=== PATIENT | male | born 1965 | race Caucasian/White ===

== ENCOUNTER 2025-03-21 09:26 | Inpatient (IN) | payer MEDICARE, MEDICAID, SELFPAY ==
[2025-03-21 09:27] VITALS: BP 125/93; PULSE 78; RESP 18; TEMP 36.6; O2SAT 96
[2025-03-21 09:30] VITALS: BMI 40.3
--- NOTE | 2025-03-21 09:40 | EX.ED.SAOD ---
HPI History of Present Illness Chief Complaint: Substance Abuse Informant: patient Narrative Narrative: 59-year-old male presenting to the emergency room requesting detox from opiates. Patient states over the past year to year and a half he has had multiple surgeries and he states that each time he was prescribed oxycodone or tramadol. He states that he is developing a tolerance to them and find that he is having withdrawal symptoms if he tries to stop. Today he went to see his primary care doctor as it has been about 2 days since his last dose and was noted to have withdrawals and was referred to this hospital for evaluation. Patient denies any alcohol or tobacco use. He states he had COVID which caused some lung damage. The patient notes he is on multiple medications. His PCP is in [place]. Patient notes current nausea vomiting diarrhea goosebumps skin shaking anxiety sweats. [facility] Medical History (Updated 03/21/25 @ 10:[address] Abe Daly, DO) Anxiety Depression Substance abuse Hypothyroidism Kidney disease Non-smoker COPD (chronic obstructive pulmonary disease) Asthma Atrial fibrillation Parkinson's disease TIA (transient ischemic attack) Home Medications ?Medication ?Instructions ?Recorded ?Last Taken ?Type acetaminophen 500 mg tablet 500 mg PO Q6H PRN fever or pain 03/21/25 03/19/25 History (Tylenol Extra Strength) albuterol sulfate 90 mcg/actuation 2 puff inhalation Q6H PRN PRN 03/21/25 03/18/25 History aerosol inhaler shortness of breath or wheezing alprazolam 1 mg tablet 1 mg PO QHS 03/21/25 03/20/25 History aspirin 81 mg tablet,delayed 81 mg PO BID 03/21/25 03/20/25 History release (Adult Aspirin Regimen) atorvastatin 80 mg tablet (Lipitor) 80 mg PO DAILY 03/21/25 03/20/25 History bacitracin 500 unit/gram topical 1 applic topical DAILY 03/21/25 03/20/25 History packet budesonide-formoterol HFA 160 1 inh inhalation DAILY 03/21/25 03/18/25 History mcg-4.5 mcg/actuation aerosol inhaler (Symbicort) bumetanide 1 mg tablet 1 mg PO BID 03/21/25 03/20/25 History buprenorphine 8 mg-naloxone 2 mg 1 film sublingual DAILY 03/21/25 Unknown History sublingual film (Suboxone) Held on 03/21/25. Instructions: pt just recieved bupropion HCl 150 mg 24 hr tablet, 150 mg PO DAILY 03/21/25 03/20/25 History extended release (Wellbutrin XL) buspirone 10 mg tablet 10 mg PO BID 03/21/25 03/20/25 History clotrimazole 1 % topical cream 1 applic topical BID PRN antifungal 03/21/25 03/20/25 History cyclobenzaprine 10 mg tablet 10 mg PO QHS PRN muscle spasm 03/21/25 03/20/25 History finasteride 5 mg tablet 5 mg PO DAILY 03/21/25 03/20/25 History fluticasone propionate 115 2 puff inhalation BID 03/21/25 03/20/25 History mcg-salmeterol 21 mcg/actuation HFA inhaler furosemide 40 mg tablet (Lasix) 40 mg PO TID 03/21/25 03/20/25 History gabapentin 300 mg capsule 300 mg PO TID 03/21/25 03/18/25 History hydroxyzine pamoate 50 mg capsule 50 mg PO Q6H PRN itching 03/21/25 03/20/25 History ipratropium 0.5 mg-albuterol 3 mg 3 ml inhalation Q6H PRN PRN 03/21/25 03/18/25 History (2.5 mg base)/3 mL nebulization shortness of breath or wheezing soln levothyroxine 75 mcg tablet 75 mcg PO DAILY 03/21/25 03/20/25 History (Euthyrox) lidocaine 4 % topical cream 1 applic topical Q8H PRN pain 03/21/25 03/18/25 History lidocaine 5 % topical patch 1 patch topical Q24H PRN pain 03/21/25 03/20/25 History multivit,calcium,min-folic acid 1 tab PO DAILY 03/21/25 03/20/25 History 240 mcg-D3 25 mcg-lycop 300 mcg tablet (One A Day Men Complete) naloxone 4 mg/actuation nasal spray 1 spray intranasal Q3M PRN opioid 03/21/25 Unknown History overdose nystatin 100,000 unit/gram topical 1 applic topical BID 03/21/25 03/20/25 History powder ondansetron HCl 4 mg tablet 4 mg PO Q8H PRN nausea and vomiting 03/21/25 03/20/25 History oxycodone 5 mg tablet 5 mg PO TID PRN PRN severe pain 03/21/25 03/20/25 History pantoprazole 40 mg tablet,delayed 40 mg PO DAILY 03/21/25 Unknown History release (Protonix) paroxetine HCl 20 mg tablet (Paxil) 20 mg PO DAILY 03/21/25 03/20/25 History sennosides 8.6 mg-docusate sodium 1 - 2 tab PO QHS PRN constipation 03/21/25 03/20/25 History 50 mg tablet (Senna with Docusate Sodium) sertraline 100 mg tablet (Zoloft) 100 mg PO DAILY 03/21/25 03/20/25 History sildenafil 100 mg tablet 100 mg PO DAILY PRN sexual activity 03/21/25 03/14/25 History tamsulosin 0.4 mg capsule 0.4 mg PO DAILY 03/21/25 03/20/25 History white petrolatum 41 % topical 1 applic topical Q6H PRN dry skin 03/21/25 03/18/25 History ointment (Aquaphor Baby Healing) Allergy/AdvReac Type Severity Reaction Status Date / Time Iodinated Contrast Media AdvReac Other Verified 03/21/25 09:30 Surgical History (Updated 03/21/25 @ 10:05 by France Mitchell) History of appendectomy Social History Smoking Status: Never smoker ROS ROS ED Constitutional Constitutional ED: Reports chills and sweats; Denies fever(s) or weight loss Eyes Eyes: Denies change in vision or diplopia ENT ENT ED: Denies ear pain, rhinorrhea or sore throat Cardiovascular Cardiovascular: Denies chest pain, orthopnea, palpitations or racing heartbeat Respiratory/Chest Respiratory/Chest: Denies cough, dyspnea or orthopnea Gastrointestinal Gastrointestinal: Reports diarrhea, nausea and vomiting; Denies abdominal pain Genitourinary Genitourinary ED: Denies dysuria, hematuria or urinary frequency Musculoskeletal Musculoskeletal: Denies arthralgias or myalgias Integumentary Reports other Details: Goosebumps skin ; Denies abscess or rash Neurologic Neurologic: Reports other Details: Shaking ; Denies headache(s) or weakness Psychiatric Psychiatric: Denies anxiety, depression, suicidal ideation or suicidal thoughts Endocrine Endocrinology: Denies polydipsia, polyphagia or polyuria Allergic/Immunologic Allergic/Immunologic ED: Denies mouth swelling, tongue swelling or urticaria EXAM Physical Exam Narrative Exam Narrative: 59-year-old male sitting in the bed. He has obvious tremor. Const Vital Signs: 03/21/25 09:27 Temperature 98 F Temperature Source Temporal Pulse Rate 78 Respiratory Rate 18 Blood Pressure 125/93 H Blood Pressure Mean 103 Pulse Ox 96 Oxygen Delivery Method Room Air Positive well nourished and well developed General Appearance ED: well developed HEENT Reports normocephalic, head/scalp atraumatic and moist mucous membranes Eyes PERRL and EOMs intact bilaterally Neck no lymphadenopathy, supple and no JVD Resp normal respiratory effort and clear to auscultation bilaterally Cardio regular rate, regular rhythm and no murmurs GI normal to inspection, nondistended, normoactive bowel sounds and non-tender Palpation: soft Back/Spine no CVA tenderness and normal ROM Extremity Extremity Narrative: Tremors noted particularly of the arms General Extremety ED: Negative for edema General Extremity: Negative for edema Neuro oriented x3 and CN's II-XII intact bilaterally Sensorium / Orientation: alert Motor Exam: strength 5/5 throughout Psych Mood & Affect: anxious; Negative for depressed or tearful Skin no rashes or lesions noted and no wounds Skin Narrative: Piloerection MDM MDM MDM Narrative Medical decision making narrative: Differential diagnosis includes but not limited to opiate withdrawal polysubstance use dehydration and electrolyte abnormalities liver dysfunction renal abnormalities bone marrow suppression/anemia Basic blood work was obtained and reviewed. Patient noted to have white count 3.7 hemoglobin 11.1 platelet count of 103. I do not have old labs to compare to to see if he has been pancytopenic in the past. He does not appear to be in need of a transfusion he has no active bleeding. Alcohol is negative. LFTs are normal. Normal creatinine. Patient has been unable to give us a urine specimen yet. I spoke with the hospitalist and the patient will be admitted. History & Record Review Discussion w/independent historian: Patient Lab Data Attestation: I reviewed the patient's lab results. Labs: Laboratory Results - last 24 hr 03/21/25 10:02 WBC 3.7 L RBC 4.19 L Hgb 11.1 L Hct 34.6 L MCV 82.6 MCH 26.5 L MCHC 32.1 RDW Std Deviation 43.2 RDW Coeff of Kaylee 14.6 Plt Count 103 L MPV 8.9 Immature Gran % (Auto) 0.300 Neut % (Auto) 63.9 Lymph % (Auto) 24.3 [place] % (Auto) 7.7 Eos % (Auto) 2.7 Baso % (Auto) 1.1 H Absolute Neuts (auto) 2.3 Absolute Lymphs (auto) 0.89 Sodium 141 Potassium 3.3 Chloride 103 Carbon Dioxide 28.0 Anion Gap 10 BUN 10 Creatinine 1.07 Estim Creat Clear Calc 106.05 Est GFR (MDRD) Non-Af 79 BUN/Creatinine Ratio 9.4 L Glucose 99 Calcium 8.6 Total Bilirubin 0.57 AST 27 ALT 20 Alkaline Phosphatase 68 Total Protein 6.7 Albumin 4.0 Globulin 2.7 Albumin/Globulin Ratio 1.5 Ethyl Alcohol < 10.1 Management Discussion w/another healthcare provider: Hospitalist Discharge Plan Dx/Rx/DC Orders Clinical Impression: Opiate withdrawal, Opiate dependence, Pancytopenia Disposition Disposition: Acute Care [facility]
[2025-03-21 10:08] LABS: Hematocrit 34.6 % (40-54); Hemoglobin 11.1 g/dL (13.0-16.5); Mean Corpuscular Volume 82.6 fL (80-94); Red Blood Count 4.19 M/mm3 (4.6-6.2); White Blood Count 3.7 K/mm3 (4.4-11.0)
[2025-03-21 10:09] LABS: Immature Granulocytes Count 0.010 X10^3/uL (0.0-0.0); Mean Corp Hgb Conc 32.1 g/dL (32-36); Mean Platelet Vol. 8.9 fl (6.2-12.0); Platelet Count 103 K/mm3 (150-450); RBC Distribution Width CV 14.6 % (11.6-14.6); RBC Distribution Width SD 43.2 fl (35.1-43.9)
[2025-03-21 10:44] LABS: AST(SGOT) 27 U/L (<=37); Alanine Aminotransfer ALT/SGPT 20 U/L (<=46); Albumin, Serum 4.0 g/dL (3.4-4.8); Alcohol, Blood (Medical)-Serum < 10.1 mg/dL (<=10.0); Alkaline Phosphatase 68 U/L (40-129); Anion Gap 10 (5-15); BUN 10 mg/dL (4-19); BUN/Creat Ratio 9.4 RATIO (10-20); Calcium,Total 8.6 mg/dL (7.6-11.0); Carbon Dioxide 28.0 mmol/L (21.0-32.0); Chloride 103 mmol/L (98-108); Estimated Creatinine Clearance 106.05 ml/min (50-250); Globulin 2.7 g/dL (2.2-4.2); Glucose 99 mg/dL (70-99); Potassium 3.3 mmol/L (3.3-5.1)
[2025-03-21 11:06] VITALS: BP 136/84; PULSE 64; RESP 18; TEMP 36.4; O2SAT 96
[2025-03-21 11:40] LABS: Barbiturate Urine NEGATIVE (< 200 ng/mL); Benzodiazepine Urine PRESUMPTIVE POSITIVE (< 200 ng/mL); PCP Urine NEGATIVE (< 25 ng/mL); THC Urine PRESUMPTIVE POSITIVE (< 50 ng/mL)
--- NOTE | 2025-03-21 11:40 | CM.ED ---
Social Work Patient requesting detox from opiates. Patient states he has had five surgeries over the last two years and now is not able to get off pain medications. Patient reports he is a little nervous about the process but is ready to be free of the medications. Emotional support provided. Rebecca Anderson, FOIL STAMP OPERATOR, LIQUEFIER
[2025-03-21 12:12] VITALS: BP 161/94; PULSE 71; RESP 18; TEMP 36.2; O2SAT 99
[2025-03-21 12:15] VITALS: BMI 34.5
[2025-03-21] MEDS: hydrOXYzine PAM 25 MG Capsule 50 MG PO (14:34)
--- NOTE | 2025-03-21 14:37 | WOUNDNOTE ---
wound photo: left lower leg
[2025-03-21 15:46] VITALS: BP 123/103; PULSE 76; RESP 16; TEMP 36.4; O2SAT 96
[2025-03-21] MEDS: Aspirin E.C. 81 MG Tablet PO (17:01)
[2025-03-21] MEDS: hydrOXYzine PAM 25 MG Capsule 75 MG PO (17:01)
--- NOTE | 2025-03-21 19:11 | PCM.HP.STD ---
HPI - General General Date of Admission: 03/21/25 Date of Service: 03/21/25 Chief Complaint: Opiate withdrawal HPI Narrative SOPHIE MUNROE, is a 59 M who presents to the emergency room at [facility] requesting services for opiate withdrawal. Patient had been taking prescription oxycodone for chronic pain and he felt he was using too many of them and wanted to come off the narcotics. Patient had gone to [place] and tried to enroll in an inpatient program but his insurance did not cover it. He contacted 180 and was advised to come to the ER for evaluation. Patient is having tremor, nausea and vomiting, diarrhea, and sweating. Workup in the emergency room included a CBC which was abnormal for white blood cell count of 3.7, hemoglobin was 11.1 and platelet count was 103,000. Patient's chemistry profile was unremarkable, and toxicology screen was positive for oxycodone cannabinoids and benzodiazepines. Patient will be admitted to [place] [address], orders were entered using the addiction order set and opiate detox order set. Patient will be seen by addiction social science research assistant [facility] Medical History (Updated 03/21/25 @ 12:23 by Stacy Dunn) GERD (gastroesophageal reflux disease) Dementia Anxiety Depression Substance abuse Hypothyroidism Kidney disease Non-smoker COPD (chronic obstructive pulmonary disease) Asthma Atrial fibrillation Parkinson's disease TIA (transient ischemic attack) Home Medications ?Medication ?Instructions ?Recorded ?Last Taken ?Type acetaminophen 500 mg tablet 500 mg PO Q6H PRN fever or pain 03/21/25 03/19/25 History (Tylenol Extra Strength) albuterol sulfate 90 mcg/actuation 2 puff inhalation Q6H PRN PRN 03/21/25 03/18/25 History aerosol inhaler shortness of breath or wheezing alprazolam 1 mg tablet 1 mg PO QHS 03/21/25 03/20/25 History aspirin 81 mg tablet,delayed 81 mg PO BID 03/21/25 03/20/25 History release (Adult Aspirin Regimen) atorvastatin 80 mg tablet (Lipitor) 80 mg PO DAILY 03/21/25 03/20/25 History bacitracin 500 unit/gram topical 1 applic topical DAILY 03/21/25 03/20/25 History packet budesonide-formoterol HFA 160 1 inh inhalation DAILY 03/21/25 03/18/25 History mcg-4.5 mcg/actuation aerosol inhaler (Symbicort) bumetanide 1 mg tablet 1 mg PO BID 03/21/25 03/20/25 History buprenorphine 8 mg-naloxone 2 mg 1 film sublingual DAILY 03/21/25 Unknown History sublingual film (Suboxone) Held on 03/21/25. Instructions: pt just recieved bupropion HCl 150 mg 24 hr tablet, 150 mg PO DAILY 03/21/25 03/20/25 History extended release (Wellbutrin XL) buspirone 10 mg tablet 10 mg PO BID 03/21/25 03/20/25 History clotrimazole 1 % topical cream 1 applic topical BID PRN antifungal 03/21/25 03/20/25 History cyclobenzaprine 10 mg tablet 10 mg PO QHS PRN muscle spasm 03/21/25 03/20/25 History finasteride 5 mg tablet 5 mg PO DAILY 03/21/25 03/20/25 History fluticasone propionate 115 2 puff inhalation BID 03/21/25 03/20/25 History mcg-salmeterol 21 mcg/actuation HFA inhaler furosemide 40 mg tablet (Lasix) 40 mg PO TID 03/21/25 03/20/25 History gabapentin 300 mg capsule 300 mg PO TID 03/21/25 03/18/25 History hydroxyzine pamoate 50 mg capsule 50 mg PO Q6H PRN itching 03/21/25 03/20/25 History ipratropium 0.5 mg-albuterol 3 mg 3 ml inhalation Q6H PRN PRN 03/21/25 03/18/25 History (2.5 mg base)/3 mL nebulization shortness of breath or wheezing soln levothyroxine 75 mcg tablet 75 mcg PO DAILY 03/21/25 03/20/25 History (Euthyrox) lidocaine 4 % topical cream 1 applic topical Q8H PRN pain 03/21/25 03/18/25 History lidocaine 5 % topical patch 1 patch topical Q24H PRN pain 03/21/25 03/20/25 History multivit,calcium,min-folic acid 1 tab PO DAILY 03/21/25 03/20/25 History 240 mcg-D3 25 mcg-lycop 300 mcg tablet (One A Day Men Complete) naloxone 4 mg/actuation nasal spray 1 spray intranasal Q3M PRN opioid 03/21/25 Unknown History overdose nystatin 100,000 unit/gram topical 1 applic topical BID 03/21/25 03/20/25 History powder ondansetron HCl 4 mg tablet 4 mg PO Q8H PRN nausea and vomiting 03/21/25 03/20/25 History oxycodone 5 mg tablet 5 mg PO TID PRN PRN severe pain 03/21/25 03/20/25 History pantoprazole 40 mg tablet,delayed 40 mg PO DAILY 03/21/25 Unknown History release (Protonix) paroxetine HCl 20 mg tablet (Paxil) 20 mg PO DAILY 03/21/25 03/20/25 History sennosides 8.6 mg-docusate sodium 1 - 2 tab PO QHS PRN constipation 03/21/25 03/20/25 History 50 mg tablet (Senna with Docusate Sodium) sertraline 100 mg tablet (Zoloft) 100 mg PO DAILY 03/21/25 03/20/25 History sildenafil 100 mg tablet 100 mg PO DAILY PRN sexual activity 03/21/25 03/14/25 History tamsulosin 0.4 mg capsule 0.4 mg PO DAILY 03/21/25 03/20/25 History white petrolatum 41 % topical 1 applic topical Q6H PRN dry skin 03/21/25 03/18/25 History ointment (Aquaphor Baby Healing) Allergy/AdvReac Type Severity Reaction Status Date / Time Iodinated Contrast Media AdvReac Other Verified 03/21/25 09:30 Surgical History (Updated 03/21/25 @ 10:05 by France Mitchell) History of appendectomy Social History Smoking Status: Never smoker ROS Constitutional Constitutional: Denies anorexia, change in weight, fever(s), night sweats or weakness Eyes Eyes: Denies blurry vision, change in vision, discharge from eye(s) or eye pain Cardiovascular Cardiovascular: Denies chest pain, claudication, edema or palpitations Respiratory/Chest Respiratory/Chest: Denies cough, hemoptysis, shortness of breath at rest or shortness of breath with exertion Gastrointestinal Gastrointestinal: Reports diarrhea, nausea and vomiting; Denies abdominal pain, constipation, hematemesis, hematochezia or melena Genitourinary Genitourinary: Denies dysuria, hematuria, urinary frequency, urinary hesitancy, urinary incontinence or urinary urgency Musculoskeletal Musculoskeletal: Denies back pain, joint pain, joint stiffness, joint swelling, myalgias or neck pain Neurologic Neurologic: Denies abnormal gait, abnormal speech, dizziness, focal weakness, headache(s), loss of vision, numbness, other visual disturbances, paresthesias, syncope or tingling Psychiatric Psychiatric: Reports anxiety; Denies cognitive impairment, depression, irritability, mood swings or suicidal ideation Endocrine Endocrinology: Denies change in body appearance, cold intolerance, excessive sweating, heat intolerance, polydipsia or polyuria Hematologic/Lymphatic Hematologic/Lymphatic: Denies none, anemia, easy bleeding, easy bruising or lymphadenopathy Allergic/Immunologic Allergic/Immunologic: Denies rhinitis, urticaria, eczemia or asthma Vital Signs Vital Signs Vital Signs: 03/21/25 09:27 03/21/25 11:06 03/21/25 12:12 Temperature 98 F 97.6 F L 97.2 F L Temperature Source Temporal Temporal Pulse Rate 78 64 71 Respiratory Rate 18 18 18 Respiratory Effort Respiratory Depth Respiratory Pattern Blood Pressure 125/93 H 136/84 H 161/94 H Blood Pressure Mean 103 101 116 Blood Pressure Source Monitor Blood Pressure Position Semi-Fowlers Blood Pressure Location Left Forearm Pulse Ox 96 96 99 Oxygen Delivery Method Room Air Room Air 03/21/25 12:42 03/21/25 15:46 Temperature 97.5 F L Temperature Source Oral Pulse Rate 76 Respiratory Rate 16 Respiratory Effort Normal Respiratory Depth Normal Respiratory Pattern Normal Blood Pressure 123/103 H Blood Pressure Mean 109 Blood Pressure Source Monitor Blood Pressure Position Semi-Fowlers Blood Pressure Location Left Arm Pulse Ox 96 Oxygen Delivery Method Room Air Room Air Weight Weight: 118.8 kg Body Mass Index (BMI) 34.5 Physical Exam Const alert, oriented x3 and no apparent distress Constitutional Narrative: Patient appears mildly anxious at the time my examination General Appearance: cooperative, well kempt and well developed Orientation / Consciousness: awake, oriented to person, oriented to place and oriented to time HEENT normocephalic, head/scalp atraumatic, hearing grossly normal bilaterally and moist oral mucous membranes Eyes PERRL, EOMs intact bilaterally and conjunctivae normal Neck supple, no JVD, thyroid normal and no carotid bruits General: trachea midline Resp normal respiratory effort, no retractions, no use of accessory muscles and clear to auscultation bilaterally Auscultation: Negative for rales, rhonchi or wheezes Cardio regular rate, regular rhythm, S1 normal heart sound, S2 normal heart sound, no murmurs, no rub and no gallops GI normal to inspection, nondistended, normoactive bowel sounds, soft to palpation, non-tender and non-distended Skin Skin Narrative: Patient has excoriated /abraded areas over his left lower leg, there is no drainage Neuro oriented x3, CN's II-XII intact bilaterally, moves all extremities, no focal motor deficits and no sensory deficits noted Sensorium / Orientation: awake and alert Speech: speech normal Psych Psych Narrative: Patient appeared mildly anxious and nervous Results Lab / Micro Data 03/21/25 10:02 03/21/25 10:02 Labs: Laboratory Results - last 24 hr 03/21/25 10:02: WBC 3.7 L, RBC 4.19 L, Hgb 11.1 L, Hct 34.6 L, MCV 82.6, MCH 26.5 L, MCHC 32.1, RDW Std Deviation 43.2, RDW Coeff of Kaylee 14.6, Plt Count 103 L, MPV 8.9, Immature Gran % (Auto) 0.300, Neut % (Auto) 63.9, Lymph % (Auto) 24.3, [place] % (Auto) 7.7, Eos % (Auto) 2.7, Baso % (Auto) 1.1 H, Absolute Neuts (auto) 2.3, Absolute Lymphs (auto) 0.89, Sodium 141, Potassium 3.3, Chloride 103, Carbon Dioxide 28.0, Anion Gap 10, BUN 10, Creatinine 1.07, Estim Creat Clear Calc 106.05, Est GFR (MDRD) Non-Af 79, BUN/Creatinine Ratio 9.4 L, Glucose 99, Calcium 8.6, Total Bilirubin 0.57, AST 27, ALT 20, Alkaline Phosphatase 68, Total Protein 6.7, Albumin 4.0, Globulin 2.7, Albumin/Globulin Ratio 1.5, Ethyl Alcohol < 10.1 03/21/25 11:05: Urine Opiates Screen NEGATIVE, U Buprenorphine Qual NEGATIVE, Ur Oxycodone Screen PRESUMPTIVE POSITIVE, Urine Methadone Screen NEGATIVE, Urine Fentanyl Screen NEGATIVE, Ur Barbiturates Screen NEGATIVE, Ur Phencyclidine Scrn NEGATIVE, Ur Amphetamines Screen NEGATIVE, U Benzodiazepines Scrn PRESUMPTIVE POSITIVE, Urine Cocaine Screen NEGATIVE, U Cannabinoids Screen PRESUMPTIVE POSITIVE Assessment & Plan Assessment/Plan (1) Opiate withdrawal: PLAN: Plan 1. Acute opiate withdrawal-patient stopped his oxycodone approximately 2 days ago, again patient was admitted to [place] [address] and will be seen by addiction social science research assistant, his Xanax will be discontinued. Patient's gabapentin will be discontinued. #2 chronic depression-patient will remain on his outpatient medications #3 GERD-patient is on a PPI #4 hypothyroidism-patient is on Synthroid #5 chronic obstructive pulmonary disease-patient will be placed on aerosol treatments Total clinical time spent by myself addressing the patient's medical issues, reviewing all of his data, and collaborating with the patient's care team: 55 minutes Charges/Coding Visit Charges Inpatient E&M: 42022 Init Hosp L2
[2025-03-21 19:34] VITALS: PULSE 65; RESP 14; O2SAT 97
[2025-03-21 21:45] VITALS: BP 105/55; PULSE 70; RESP 16; TEMP 36.4; O2SAT 96
[2025-03-21] MEDS: Lidocaine 5% Patch 1 PATCH TOPICAL (21:50)
[2025-03-22 02:37] VITALS: BP 120/55; PULSE 70; RESP 16; TEMP 36.6; O2SAT 95
[2025-03-22] MEDS: hydrOXYzine PAM 25 MG Capsule 50 MG PO ×2 (02:38→13:25)
[2025-03-22] MEDS: buPROPion (XL) 150 MG TABLET.XL PO (08:17)
[2025-03-22] MEDS: Aspirin E.C. 81 MG Tablet PO ×2 (08:17→16:59)
[2025-03-22 08:27] VITALS: BP 131/90; PULSE 75; RESP 18; TEMP 37.2; O2SAT 95
--- NOTE | 2025-03-22 11:55 | ADDICTION ---
Met with patient to complete RAMP assessments. The patient reported being prescribed opiates for over two years. He stated that the medication had become ineffective, leading him to increase his dosage. He disclosed that his use had escalated to as many as twelve pills per day and expressed a strong desire to discontinue opiate use completely. The patient acknowledged physical dependence but did not exhibit addictive behaviors beyond taking more than prescribed. Treatment options were discussed during the session. The clinician recommended outpatient counseling to support the patient?s goal of discontinuing opiate use. Inpatient treatment was not recommended at this time. The plan is for the patient to follow up with a counselor and continue monitoring progress. Resources were given.
[2025-03-22 14:31] VITALS: BP 113/53; PULSE 72; RESP 16; TEMP 36.8; O2SAT 98
--- NOTE | 2025-03-22 14:34 | CHAPLAIN ---
Type of Pastoral Visit _x__ Initial Visit ___ Follow-up Visit ___ On-call Visit ___ General Patient Visit ___ Spiritual Assessment ___ Family Conference ___ Bereavement ___ Rapid Response ___ Code Blue ___ Other (describe below) Pastoral Care Referral From _x__ Patient ___ Family ___ Nurse ___ Physician ___ Phlebotomy Instructor ___ [employer] Delivery Driver ___ Other (describe below) Sacrament/Intervention _x__ Active listening ___ Anointing ___ Episcopal ___ Bereavement ___ Communion _x__ Jodi exploration ___ _x__ Life review _x__ Prayer ___ Reconciliation ___ Sacrament of Sick _x__ Supportive presence ___ Wedding ___ Other (describe below) Pastoral Comments patient is open for conversation and is honest about his struggles with pain killers; pt has had many surgeries in a short amount of time; pt has goal to be medication free as much as possible but admits that he has new diagnosis that may require more pills; pt has family and they are supportive; pt states that he has a goal to start attending gnosticist with his daughter and that he is open to spiritual care and support for personal growth; pt talks about his life, his needs, and his interest in jodi; pt welcomes prayer
[2025-03-22 15:42] VITALS: PULSE 72; RESP 19
--- NOTE | 2025-03-22 18:31 | PCM.PN.HOSP ---
Reason for Visit Chief Complaint: Opiate withdrawal Subjective Subjective Patient was seen and examined today, he states he is got less nervousness today, he does have a resting tremor that is evident particularly in the on the right upper extremity. Patient and I had a conversation concerning his Xanax usage, patient was able to sleep with tramadol while in the hospital here, for now we will continue to hold his Xanax and I told him that if he felt he needed it on discharge from the hospital I would give him a prescription for this or have him resume his medicine at home. It appears that the patient is not going to do an inpatient detox program. Objective Data Objective Data Vital Signs: Vital Signs Temp Pulse Resp BP Pulse Ox O2 Del Method 98.3 F 72 19 H 113/53 L 98 Room Air 03/22/25 14:31 03/22/25 15:42 03/22/25 15:42 03/22/25 14:31 03/22/25 14:31 03/22/25 14:31 Oxygen Delivery Method Room Air Weight: 118.8 kg Body Mass Index (BMI) 34.5 Intake & Output: Intake and Output for Last 24 Hours 03/20/25 03/21/25 03/22/25 23:59 23:59 23:59 Intake Total 700 / 700 1000 / 1000 Output Total 1400 / 1900 800 / 800 Balance -700 / -1200 200 / 200 Lab / Micro Data 03/21/25 10:02 03/21/25 10:02 Physical Exam Narrative alert, oriented x3 and no apparent distress Constitutional Narrative: Patient appears mildly anxious at the time my examination General Appearance: cooperative, well kempt and well developed Orientation / Consciousness: awake, oriented to person, oriented to place and oriented to time HEENT normocephalic, head/scalp atraumatic, hearing grossly normal bilaterally and moist oral mucous membranes Eyes PERRL, EOMs intact bilaterally and conjunctivae normal Neck supple, no JVD, thyroid normal and no carotid bruits General: trachea midline Resp normal respiratory effort, no retractions, no use of accessory muscles and clear to auscultation bilaterally Auscultation: Negative for rales, rhonchi or wheezes Cardio regular rate, regular rhythm, S1 normal heart sound, S2 normal heart sound, no murmurs, no rub and no gallops GI normal to inspection, nondistended, normoactive bowel sounds, soft to palpation, non-tender and non-distended Skin Skin Narrative: Patient has excoriated /abraded areas over his left lower leg, there is no drainage Neuro oriented x3, CN's II-XII intact bilaterally, moves all extremities, no focal motor deficits and no sensory deficits noted Sensorium / Orientation: awake and alert Speech: speech normal Psych Psych Narrative: Patient appeared mildly anxious and nervous Assessment & Plan Assessment/Plan (1) Opiate withdrawal: PLAN: Plan 1. Acute opiate withdrawal-continue medications for symptomatic relief, patient is on a Subutex taper #2 chronic depression-patient will remain on his outpatient medications #3 GERD-patient is on a PPI #4 hypothyroidism-patient is on Synthroid #5 chronic obstructive pulmonary disease-patient will be placed on aerosol treatments #6 insomnia-patient will likely go back to using Xanax for his sleep, I told him that I was okay with this. Total clinical time spent by myself addressing the patient's medical issues, reviewing all of his data, and collaborating with the patient's care team: 55 minutes Charges/Coding Visit Charges Inpatient E&M: 21802 Subs Hosp L2
[2025-03-22 20:53] VITALS: BP 141/93; PULSE 68; RESP 19; TEMP 36.7; O2SAT 97
[2025-03-22] MEDS: Lidocaine 5% Patch 1 PATCH TOPICAL (21:19)
[2025-03-23 02:06] VITALS: BP 108/62; PULSE 65; RESP 16; TEMP 36.4; O2SAT 95
[2025-03-23] MEDS: hydrOXYzine PAM 25 MG Capsule 50 MG PO (02:15)
[2025-03-23 05:40] VITALS: BP 112/62; PULSE 65; RESP 18; TEMP 36.7; O2SAT 96
[2025-03-23 08:14] VITALS: BP 110/70; PULSE 63; RESP 18; TEMP 36.4; O2SAT 99
[2025-03-23] MEDS: Aspirin E.C. 81 MG Tablet PO ×2 (08:20→16:58)
[2025-03-23] MEDS: buPROPion (XL) 150 MG TABLET.XL PO (08:25)
[2025-03-23 14:20] VITALS: BP 105/56; PULSE 60; RESP 18; TEMP 36.6; O2SAT 98
--- NOTE | 2025-03-23 14:48 | CASEMGMT ---
ANDREY MERIDA informed Pt uses O2 through [facility] [place]. Called [facility] to verify - they do not have patient in their system. ANDREY MERIDA into Pt room to verify Pt has O2. Pt states he uses 2L at home PRN. States he gets his O2 through [facility]. ANDREY MERIDA called [facility] to verify, they stated Pt had an order sent in January but they were not able to deliver due to not receiving O2 testing. State Pt does not have their concentrator or portable tanks. ANDREY MERIDA notified ANDREY MERIDA on floor.
--- NOTE | 2025-03-23 15:14 | CASEMGMT ---
ANDREY MERIDA into pt room, pt agreeable to RN CM calling pt to verify who O2 is through. RN MAGNOLIA called Pt , she states it is through [facility]. RN MAGNOLIA called [facility] to verify, [facility] staff member states current O2 order is 2L [place] Continuous.
--- NOTE | 2025-03-23 17:59 | PCM.PN.HOSP ---
Reason for Visit Chief Complaint: Opiate withdrawal Subjective Subjective Patient was seen and examined today, he request to go back on Xanax for sleep at night. Patient is continuing to be tapered off his Subutex, he is not going to do any follow-up at 180 after he leaves the hospital. Objective Data Objective Data Vital Signs: Vital Signs Temp Pulse Resp BP Pulse Ox O2 Del Method 98 F 60 18 105/56 L 98 Room Air 03/23/25 14:20 03/23/25 14:20 03/23/25 14:20 03/23/25 14:20 03/23/25 14:20 03/23/25 14:20 Oxygen Delivery Method Room Air Weight: 118.8 kg Body Mass Index (BMI) 34.5 Intake & Output: Intake and Output for Last 24 Hours 03/21/25 03/22/25 03/23/25 23:59 23:59 23:59 Intake Total 700 / 700 1000 / 1000 Output Total 1400 / 1900 800 / 800 Balance -700 / -1200 200 / 200 Lab / Micro Data 03/21/25 10:02 03/21/25 10:02 Physical Exam Narrative alert, oriented x3 and no apparent distress Constitutional Narrative: Patient appears mildly anxious at the time my examination General Appearance: cooperative, well kempt and well developed Orientation / Consciousness: awake, oriented to person, oriented to place and oriented to time HEENT normocephalic, head/scalp atraumatic, hearing grossly normal bilaterally and moist oral mucous membranes Eyes PERRL, EOMs intact bilaterally and conjunctivae normal Neck supple, no JVD, thyroid normal and no carotid bruits General: trachea midline Resp normal respiratory effort, no retractions, no use of accessory muscles and clear to auscultation bilaterally Auscultation: Negative for rales, rhonchi or wheezes Cardio regular rate, regular rhythm, S1 normal heart sound, S2 normal heart sound, no murmurs, no rub and no gallops GI normal to inspection, nondistended, normoactive bowel sounds, soft to palpation, non-tender and non-distended Skin Skin Narrative: Patient has excoriated /abraded areas over his left lower leg, there is no drainage Neuro oriented x3, CN's II-XII intact bilaterally, moves all extremities, no focal motor deficits and no sensory deficits noted Sensorium / Orientation: awake and alert Speech: speech normal Psych Psych Narrative: Patient appeared mildly anxious and nervous Assessment & Plan Assessment/Plan (1) Opiate withdrawal: PLAN: Plan 1. Acute opiate withdrawal-continue medications for symptomatic relief, patient is on a Subutex taper #2 chronic depression-patient will remain on his outpatient medications #3 GERD-patient is on a PPI #4 hypothyroidism-patient is on Synthroid #5 chronic obstructive pulmonary disease-patient will be placed on aerosol treatments #6 insomnia-patient will likely go back to using Xanax for his sleep, I told him that I was okay with this. Total clinical time spent by myself addressing the patient's medical issues, reviewing all of his data, and collaborating with the patient's care team: 55 minutes Charges/Coding Visit Charges Inpatient E&M: 81397 Subs Hosp L2
[2025-03-23 21:01] VITALS: BP 118/63; PULSE 68; RESP 18; TEMP 36.7; O2SAT 95
[2025-03-23] MEDS: Lidocaine 5% Patch 1 PATCH TOPICAL (21:15)
[2025-03-24 01:45] VITALS: BP 119/69; PULSE 86; RESP 16; TEMP 36.4; O2SAT 95
[2025-03-24 06:54] VITALS: BP 116/61; PULSE 68; RESP 16; TEMP 36.5; O2SAT 96
[2025-03-24 09:20] VITALS: BP 103/80; PULSE 60; RESP 18; TEMP 36.5; O2SAT 95
[2025-03-24] MEDS: buPROPion (XL) 150 MG TABLET.XL PO (09:27)
[2025-03-24] MEDS: Aspirin E.C. 81 MG Tablet PO (09:27)
[2025-03-24] MEDS: Senna Tablet 2 TABLET PO (09:59)
--- NOTE | 2025-03-24 10:15 | DCINST_ITS ---
Discharge Instructions DC O2, CPAP, BIPAP needs Home O2 Discharge instructions: No Dressing / Incision Discharge Activity: Return to Normal Activity Weight Bearing Status: Full weight bearing Follow Up Care Test Results: Test results from this visit will be discussed in further detail at your follow- up appointment, if applicable. Discharge Plan Admission Admit Date/Time: 03/21/25 11:03 Primary Reason for Your Visit: opiate detox Attending Provider: Solis Hensley Primary Care Provider: MICHELA DAILEY Instructions Additional Instructions / Restrictions: follow-up with your primary care doctor within two weeks Discharge Orders/Prescriptions Prescriptions: New alprazolam 1 mg tablet 1 mg PO QHS Qty: 30 0RF gabapentin 600 mg tablet 600 mg PO TID Qty: 90 0RF celecoxib [Celebrex] 200 mg capsule 200 mg PO BID PRN (Reason: pain) Qty: 60 0RF Continued Aquaphor Baby Healing 41 % ointment 1 applic topical Q6H PRN (Reason: dry skin) lidocaine 4 % cream 1 applic topical Q8H PRN (Reason: pain) bacitracin 500 unit/gram packet 1 applic topical DAILY clotrimazole 1 % cream 1 applic topical BID PRN (Reason: antifungal) tamsulosin 0.4 mg capsule 0.4 mg PO DAILY atorvastatin [Lipitor] 80 mg tablet 80 mg PO DAILY pantoprazole [Protonix] 40 mg tablet,delayed release (DR/EC) 40 mg PO DAILY levothyroxine [Euthyrox] 75 mcg tablet 75 mcg PO DAILY finasteride 5 mg tablet 5 mg PO DAILY sennosides-docusate sodium [Senna with Docusate Sodium] 8.6-50 mg tablet 1 - 2 tab PO QHS PRN (Reason: constipation) paroxetine HCl [Paxil] 20 mg tablet 20 mg PO DAILY acetaminophen [Tylenol Extra Strength] 500 mg tablet 500 mg PO Q6H PRN (Reason: fever or pain) ondansetron HCl 4 mg tablet 4 mg PO Q8H PRN (Reason: nausea and vomiting) nystatin 100,000 unit/gram powder 1 applic topical BID sildenafil 100 mg tablet 100 mg PO DAILY PRN (Reason: sexual activity) Rx Instructions: administer 30 minutes to 4 hours before activity aspirin [Adult Aspirin Regimen] 81 mg tablet,delayed release (DR/EC) 81 mg PO BID bupropion HCl [Wellbutrin XL] 150 mg tablet extended release 24 hr 150 mg PO DAILY cyclobenzaprine 10 mg tablet 10 mg PO QHS PRN (Reason: muscle spasm) hydroxyzine pamoate 50 mg capsule 50 mg PO Q6H PRN (Reason: itching) buspirone 10 mg tablet 10 mg PO BID sertraline [Zoloft] 100 mg tablet 100 mg PO DAILY furosemide [Lasix] 40 mg tablet 40 mg PO TID One A Day Men Complete 240-25-300 mcg tablet 1 tab PO DAILY lidocaine 5 % adhesive patch,medicated 1 patch topical Q24H PRN (Reason: pain) albuterol sulfate 90 mcg/actuation HFA aerosol inhaler 2 puff INHALATION Q6H PRN PRN (Reason: shortness of breath or wheezing) budesonide-formoterol [Symbicort] 160-4.5 mcg/actuation HFA aerosol inhaler 1 inh inhalation DAILY ipratropium-albuterol 0.5 mg-3 mg(2.5 mg base)/3 mL solution for nebulization 3 ml inhalation Q6H PRN PRN (Reason: shortness of breath or wheezing) fluticasone propion-salmeterol 115-21 mcg/actuation HFA aerosol inhaler 2 puff INHALATION BID Discontinued gabapentin 300 mg capsule 300 mg PO TID alprazolam 1 mg tablet 1 mg PO QHS buprenorphine-naloxone [Suboxone] 8-2 mg film 1 film sublingual DAILY Patient Comments: hasnt started yet oxycodone 5 mg tablet 5 mg PO TID PRN PRN (Reason: severe pain) naloxone 4 mg/actuation spray,non-aerosol 1 spray INTRANASAL Q3M PRN (Reason: opioid overdose) Patient Comments: USE 1 SPRAY IN 1 NOSTRIL ONCE NEEDED FOR OVERDOSE CALL 911 MAY REPEAT IN 2-3 MINS IN OTHER NOSTRIL UNTIL PATIENT IS RESPONSIVE OR EMS ARRIVES Referrals / Follow Up: MICHELA DAILEY [Other] Disposition Disposition (needs filled in before D/C Order can be placed): Home, Self Care
--- NOTE | 2025-03-24 10:26 | DS.PCM_ITS ---
Providers Date of Admission: 03/21/25 Date of Discharge: 03/24/25 Primary Care Physician: MICHELA DAILEY Reason For Visit: OPIATE WITHDRAWAL Diagnosis Discharge Diagnosis (1) Opiate withdrawal: Status: Acute Code(s): F11.93 - Opioid use, unspecified with withdrawal Plan 1. Acute opiate withdrawal-continue medications for symptomatic relief, patient is on a Subutex taper #2 chronic depression-patient will remain on his outpatient medications #3 GERD-patient is on a PPI #4 hypothyroidism-patient is on Synthroid #5 chronic obstructive pulmonary disease-patient will be placed on aerosol treatments #6 insomnia-patient will likely go back to using Xanax for his sleep, I told him that I was okay with this. Total clinical time spent by myself addressing the patient's medical issues, reviewing all of his data, and collaborating with the patient's care team: 55 minutes Medications at Discharge Home Medications acetaminophen 500 mg tablet (Tylenol Extra Strength) 500 mg PO Q6H PRN fever or pain 03/21/25 albuterol sulfate 90 mcg/actuation aerosol inhaler 2 puff inhalation Q6H PRN PRN shortness of breath or wheezing 03/21/25 aspirin 81 mg tablet,delayed release (Adult Aspirin Regimen) 81 mg PO BID 03/21/25 atorvastatin 80 mg tablet (Lipitor) 80 mg PO DAILY 03/21/25 bacitracin 500 unit/gram topical packet 1 applic topical DAILY 03/21/25 budesonide-formoterol HFA 160 mcg-4.5 mcg/actuation aerosol inhaler (Symbicort) 1 inh inhalation DAILY 03/21/25 bupropion HCl 150 mg 24 hr tablet, extended release (Wellbutrin XL) 150 mg PO DAILY 03/21/25 buspirone 10 mg tablet 10 mg PO BID 03/21/25 clotrimazole 1 % topical cream 1 applic topical BID PRN antifungal 03/21/25 cyclobenzaprine 10 mg tablet 10 mg PO QHS PRN muscle spasm 03/21/25 finasteride 5 mg tablet 5 mg PO DAILY 03/21/25 fluticasone propionate 115 mcg-salmeterol 21 mcg/actuation HFA inhaler 2 puff inhalation BID 03/21/25 furosemide 40 mg tablet (Lasix) 40 mg PO TID 03/21/25 hydroxyzine pamoate 50 mg capsule 50 mg PO Q6H PRN itching 03/21/25 ipratropium 0.5 mg-albuterol 3 mg (2.5 mg base)/3 mL nebulization soln 3 ml inhalation Q6H PRN PRN shortness of breath or wheezing 03/21/25 levothyroxine 75 mcg tablet (Euthyrox) 75 mcg PO DAILY 03/21/25 lidocaine 4 % topical cream 1 applic topical Q8H PRN pain 03/21/25 lidocaine 5 % topical patch 1 patch topical Q24H PRN pain 03/21/25 multivit,calcium,min-folic acid 240 mcg-D3 25 mcg-lycop 300 mcg tablet (One A Day Men Complete) 1 tab PO DAILY 03/21/25 nystatin 100,000 unit/gram topical powder 1 applic topical BID 03/21/25 ondansetron HCl 4 mg tablet 4 mg PO Q8H PRN nausea and vomiting 03/21/25 pantoprazole 40 mg tablet,delayed release (Protonix) 40 mg PO DAILY 03/21/25 paroxetine HCl 20 mg tablet (Paxil) 20 mg PO DAILY 03/21/25 sennosides 8.6 mg-docusate sodium 50 mg tablet (Senna with Docusate Sodium) 1 - 2 tab PO QHS PRN constipation 03/21/25 sertraline 100 mg tablet (Zoloft) 100 mg PO DAILY 03/21/25 sildenafil 100 mg tablet 100 mg PO DAILY PRN sexual activity 03/21/25 tamsulosin 0.4 mg capsule 0.4 mg PO DAILY 03/21/25 white petrolatum 41 % topical ointment (Aquaphor Baby Healing) 1 applic topical Q6H PRN dry skin 03/21/25 alprazolam 1 mg tablet 1 mg PO QHS #30 tabs 03/24/25 celecoxib 200 mg capsule (Celebrex) 200 mg PO BID PRN pain #60 caps 03/24/25 gabapentin 600 mg tablet 600 mg PO TID #90 tabs 03/24/25 Hospital Course Operations None Procedures None Summary of Care Provided Minutes Spent on Discharge: 30 Hospital Course: 59-year-old white male was seen in the emergency room at [facility] requesting services for opiate detox. He had been taking prescription OxyContin for pain and felt that he was taking too many of them. Patient was admitted to [place] [address], orders were entered using the opiate withdrawal order set, he was seen by addiction social media marketing analyst. Patient had no major withdrawal symptoms during his hospitalization although he did remain anxious for the first couple of days in the hospital. He did not want to follow-up with 180 after discharge, on 03/23/2025, patient was seen and examined: On examination he appeared in good health and spirits. Vital signs as documented. Skin warm and dry and without overt rashes. Neck without JVD, neck was supple, trachea midline, thyroid was normal. Lungs clear bilaterally, normal air movement was noted. Heart exam notable for regular rhythm, normal sounds and absence of murmurs, rubs or gallops. Abdomen unremarkable and without evidence of organomegaly, masses, or abdominal aortic enlargement. Bowel sounds are present, abdomen is not distended. Extremities nonedematous, no cyanosis was noted, no clubbing was noted. Neuro: Cranial nerves II through XII are grossly intact, no focal motor deficits were noted, sensation to light touch and pinprick intact, motor exam 5/5 throughout. Psych: Patient is alert and oriented x3, he does not appear anxious or depressed, he does not appear agitated. Patient was discharged in stable condition on 03/23/2025 Weight / BMI Weight Weight: 118.8 kg Body Mass Index (BMI) 34.5 ABG / Lab / Microbiology Data 03/21/25 10:02 03/21/25 10:02 D/C Instructions Weight Bearing Status: Full weight bearing DC O2, CPAP, BIPAP Needs Home O2 Discharge instructions: No Meaningful Use Info Meaningful Use Meaningful Use Diagnoses (Choose all that apply): None applicable Discharge Plan Admission Admit Date/Time: 03/21/25 11:03 Primary Reason for Your Visit: opiate detox Attending Provider: Solis Hensley Primary Care Provider: MICHELA DAILEY Instructions Additional Instructions / Restrictions: follow-up with your primary care doctor within two weeks Discharge Orders/Prescriptions Prescriptions: New alprazolam 1 mg tablet 1 mg PO QHS Qty: 30 0RF gabapentin 600 mg tablet 600 mg PO TID Qty: 90 0RF celecoxib [Celebrex] 200 mg capsule 200 mg PO BID PRN (Reason: pain) Qty: 60 0RF Continued Aquaphor Baby Healing 41 % ointment 1 applic topical Q6H PRN (Reason: dry skin) lidocaine 4 % cream 1 applic topical Q8H PRN (Reason: pain) bacitracin 500 unit/gram packet 1 applic topical DAILY clotrimazole 1 % cream 1 applic topical BID PRN (Reason: antifungal) tamsulosin 0.4 mg capsule 0.4 mg PO DAILY atorvastatin [Lipitor] 80 mg tablet 80 mg PO DAILY pantoprazole [Protonix] 40 mg tablet,delayed release (DR/EC) 40 mg PO DAILY levothyroxine [Euthyrox] 75 mcg tablet 75 mcg PO DAILY finasteride 5 mg tablet 5 mg PO DAILY sennosides-docusate sodium [Senna with Docusate Sodium] 8.6-50 mg tablet 1 - 2 tab PO QHS PRN (Reason: constipation) paroxetine HCl [Paxil] 20 mg tablet 20 mg PO DAILY acetaminophen [Tylenol Extra Strength] 500 mg tablet 500 mg PO Q6H PRN (Reason: fever or pain) ondansetron HCl 4 mg tablet 4 mg PO Q8H PRN (Reason: nausea and vomiting) nystatin 100,000 unit/gram powder 1 applic topical BID sildenafil 100 mg tablet 100 mg PO DAILY PRN (Reason: sexual activity) Rx Instructions: administer 30 minutes to 4 hours before activity aspirin [Adult Aspirin Regimen] 81 mg tablet,delayed release (DR/EC) 81 mg PO BID bupropion HCl [Wellbutrin XL] 150 mg tablet extended release 24 hr 150 mg PO DAILY cyclobenzaprine 10 mg tablet 10 mg PO QHS PRN (Reason: muscle spasm) hydroxyzine pamoate 50 mg capsule 50 mg PO Q6H PRN (Reason: itching) buspirone 10 mg tablet 10 mg PO BID sertraline [Zoloft] 100 mg tablet 100 mg PO DAILY furosemide [Lasix] 40 mg tablet 40 mg PO TID One A Day Men Complete 240-25-300 mcg tablet 1 tab PO DAILY lidocaine 5 % adhesive patch,medicated 1 patch topical Q24H PRN (Reason: pain) albuterol sulfate 90 mcg/actuation HFA aerosol inhaler 2 puff INHALATION Q6H PRN PRN (Reason: shortness of breath or wheezing) budesonide-formoterol [Symbicort] 160-4.5 mcg/actuation HFA aerosol inhaler 1 inh inhalation DAILY ipratropium-albuterol 0.5 mg-3 mg(2.5 mg base)/3 mL solution for nebulization 3 ml inhalation Q6H PRN PRN (Reason: shortness of breath or wheezing) fluticasone propion-salmeterol 115-21 mcg/actuation HFA aerosol inhaler 2 puff INHALATION BID Discontinued gabapentin 300 mg capsule 300 mg PO TID alprazolam 1 mg tablet 1 mg PO QHS buprenorphine-naloxone [Suboxone] 8-2 mg film 1 film sublingual DAILY Patient Comments: hasnt started yet oxycodone 5 mg tablet 5 mg PO TID PRN PRN (Reason: severe pain) naloxone 4 mg/actuation spray,non-aerosol 1 spray INTRANASAL Q3M PRN (Reason: opioid overdose) Patient Comments: USE 1 SPRAY IN 1 NOSTRIL ONCE NEEDED FOR OVERDOSE CALL 911 MAY REPEAT IN 2-3 MINS IN OTHER NOSTRIL UNTIL PATIENT IS RESPONSIVE OR EMS ARRIVES Referrals / Follow Up: MICHELA DAILEY [Other] Disposition Disposition (needs filled in before D/C Order can be placed): Home, Self Care Charges/Coding Visit Charges Inpatient E&M: 16891 Disch Hosp
--- NOTE | 2025-03-24 11:35 | CASEMGMT ---
Addendum entered by Tracy Shin 03/24/25 11:50: [facility] has declined. SW updated. Tracy Shin DC Planning Asst. Original Note: Discharge Planning HH referral sent via [facility] to [facility]. Tracy Shin DC Planning Asst.
--- NOTE | 2025-03-24 11:40 | CASEMGMT ---
Addendum entered by Geno Dave 03/24/25 11:54: Social Work Per physician, pt does not required wound care to leg and therefore no home health needed. SW met with pt and informed of this. Pt expresses understanding that home health will not be ordered from [facility]. If pt continues to have concerns about legs, pt to follow up with PCP. Pt agreeable. GODFREY Hudson Original Note: Social Work SW met with pt and assisted in completing advance directives. Pt naming his as primary HCPOA and completed living will. Copy placed on pt chart and original given to pt. Pt requesting that home health care be set up for wound care. Pt states he has used [facility] previously and would like to use this agency again. Pt denies need for list of HHC options. DC mobile sales assistant updated and to send referral to [facility]. Physician updated. Plan: Home with home health SN GODFREY Khan
--- NOTE | 2025-03-24 12:07 | PHA.DC_ITS ---
Pharmacy [facility] has performed discharge medication counseling for this patient. The patient was counseled on the following discharge medications and changes in medications for homegoing review. - Alprazolam 1 mg tablet, Celecoxib 200 mg capsule, Gabapentin 600 mg tablet The Reason for Use, instructions for use, and potential side effects were reviewed for all new medications. The patient's questions regarding all of their medications were answered. The patient was able to verbally demonstrate an understanding of their discharge medications. Medications at Discharge Home Medications acetaminophen 500 mg tablet (Tylenol Extra Strength) 500 mg PO Q6H PRN fever or pain 03/21/25 albuterol sulfate 90 mcg/actuation aerosol inhaler 2 puff inhalation Q6H PRN PRN shortness of breath or wheezing 03/21/25 aspirin 81 mg tablet,delayed release (Adult Aspirin Regimen) 81 mg PO BID 03/21/25 atorvastatin 80 mg tablet (Lipitor) 80 mg PO DAILY 03/21/25 bacitracin 500 unit/gram topical packet 1 applic topical DAILY 03/21/25 budesonide-formoterol HFA 160 mcg-4.5 mcg/actuation aerosol inhaler (Symbicort) 1 inh inhalation DAILY 03/21/25 bupropion HCl 150 mg 24 hr tablet, extended release (Wellbutrin XL) 150 mg PO DAILY 03/21/25 buspirone 10 mg tablet 10 mg PO BID 03/21/25 clotrimazole 1 % topical cream 1 applic topical BID PRN antifungal 03/21/25 cyclobenzaprine 10 mg tablet 10 mg PO QHS PRN muscle spasm 03/21/25 finasteride 5 mg tablet 5 mg PO DAILY 03/21/25 fluticasone propionate 115 mcg-salmeterol 21 mcg/actuation HFA inhaler 2 puff inhalation BID 03/21/25 furosemide 40 mg tablet (Lasix) 40 mg PO TID 03/21/25 hydroxyzine pamoate 50 mg capsule 50 mg PO Q6H PRN itching 03/21/25 ipratropium 0.5 mg-albuterol 3 mg (2.5 mg base)/3 mL nebulization soln 3 ml inhalation Q6H PRN PRN shortness of breath or wheezing 03/21/25 levothyroxine 75 mcg tablet (Euthyrox) 75 mcg PO DAILY 03/21/25 lidocaine 4 % topical cream 1 applic topical Q8H PRN pain 03/21/25 lidocaine 5 % topical patch 1 patch topical Q24H PRN pain 03/21/25 multivit,calcium,min-folic acid 240 mcg-D3 25 mcg-lycop 300 mcg tablet (One A Day Men Complete) 1 tab PO DAILY 03/21/25 nystatin 100,000 unit/gram topical powder 1 applic topical BID 03/21/25 ondansetron HCl 4 mg tablet 4 mg PO Q8H PRN nausea and vomiting 03/21/25 pantoprazole 40 mg tablet,delayed release (Protonix) 40 mg PO DAILY 03/21/25 paroxetine HCl 20 mg tablet (Paxil) 20 mg PO DAILY 03/21/25 sennosides 8.6 mg-docusate sodium 50 mg tablet (Senna with Docusate Sodium) 1 - 2 tab PO QHS PRN constipation 03/21/25 sertraline 100 mg tablet (Zoloft) 100 mg PO DAILY 03/21/25 sildenafil 100 mg tablet 100 mg PO DAILY PRN sexual activity 03/21/25 tamsulosin 0.4 mg capsule 0.4 mg PO DAILY 03/21/25 white petrolatum 41 % topical ointment (Aquaphor Baby Healing) 1 applic topical Q6H PRN dry skin 03/21/25 alprazolam 1 mg tablet 1 mg PO QHS #30 tabs 03/24/25 celecoxib 200 mg capsule (Celebrex) 200 mg PO BID PRN pain #60 caps 03/24/25 gabapentin 600 mg tablet 600 mg PO TID #90 tabs 03/24/25
== END 2025-03-24 12:25 | disposition home or self-care (01) | DRG 897 ==
LOC: ED 10:33 → MS3 11:29
PROVIDERS: Admitting Provider Internal Medicine; Emergency Provider Emergency Medicine; Visit Provider Internal Medicine
DX: F11.93 Opioid use, unspecified with withdrawal (principal); E03.9 Hypothyroidism, unspecified; G20.C Parkinsonism, unspecified; J44.9 Chronic obstructive pulmonary disease, unspecified; F32.A Depression, unspecified; I48.91 Unspecified atrial fibrillation; F41.9 Anxiety disorder, unspecified; K21.9 Gastro-esophageal reflux disease without esophagitis; G47.00 Insomnia, unspecified; Z79.51 Long term (current) use of inhaled steroids; Z79.82 Long term (current) use of aspirin; Z79.899 Other long term (current) drug therapy; Z86.73 Personal history of transient ischemic attack (TIA), and cerebral infarction without residual deficits
CPT/HCPCS: 80053; 80307; 82077; 85025; 94640; 99284

== ENCOUNTER 2025-04-06 22:21 | Emergency (ER) | payer MEDICARE, MEDICAID, SELFPAY ==
[2025-04-06 22:21] VITALS: BP 104/77; PULSE 69; RESP 16; TEMP 37.3; O2SAT 94; BMI 45.1
--- OUTSIDE RECORDS SUMMARY | 2025-04-06 23:00 | XMS RPT_ITS | CCD ---
Author Organization [facility] Care Team Providers Care Ball Points Inspector Name Role Phone Rene Vanessa Mcguire Primary Care Provider [phone] Vanessa Mcguire Primary Care Provider Naima Rodriguez Primary Care Provider Cornelius CHAN, Naima Primary Care Provider Naima Rodriguez MD Primary Care Provider Ehsan PLANT OPERATOR CONTROL ROOM OPERATOR - FERRYBOAT OPERATOR HELPER, Jenni Primary Care Provider Ehsan PLANT OPERATOR CONTROL ROOM OPERATOR - FERRYBOAT OPERATOR HELPER, Jenni Primary Care Provider Ehsan PLANT OPERATOR CONTROL ROOM OPERATOR - FERRYBOAT OPERATOR HELPER, Jenni Primary Care Provider PROVIDER, UNKNOWN Referring Unavailable PROVIDER, UNKNOWN Primary Care Unavailable PROVIDER, UNKNOWN Referring Unavailable PROVIDER, UNKNOWN Primary Care Unavailable Pozsgay, Louisa Attending Unavailable Rodriguez, Naima Primary Care Unavailable Rodriguez, Naima Referring Unavailable Pozsgay, Louisa Attending Unavailable Ehsan, Jenni Primary Care Unavailable BRIDLE, TONIA Attending Unavailable PROVIDER, UNKNOWN Referring Unavailable PROVIDER, UNKNOWN Referring Unavailable DELIA GIBSON Attending Unavailable PROVIDER, UNKNOWN Primary Care Unavailable BRIDLE, TONIA Attending Unavailable PROVIDER, UNKNOWN Referring Unavailable Ehsan, Jenni Primary Care Unavailable PROVIDER, UNKNOWN Referring Unavailable PROVIDER, UNKNOWN Primary Care Unavailable Pozsgay, Louisa Attending Unavailable PROVIDER, UNKNOWN Referring Unavailable PROVIDER, UNKNOWN Primary Care Unavailable Pozsgay, Louisa Attending Unavailable Savanah Gomez Attending Unavailable Rodriguez, Naima Primary Care Unavailable Rodriguez, Naima Referring Unavailable BRIDLE, TONIA Attending Unavailable PROVIDER, UNKNOWN Referring Unavailable PROVIDER, UNKNOWN Primary Care Unavailable PROVIDER, UNKNOWN Referring Unavailable PROVIDER, UNKNOWN Primary Care Unavailable Pozsgay, Louisa Attending Unavailable PROVIDER, UNKNOWN Referring Unavailable PROVIDER, UNKNOWN Primary Care Unavailable Pozsgay, Louisa Attending Unavailable Ehsan PLANT OPERATOR CONTROL ROOM OPERATOR, Jenni Primary Care Provider Posgay DO, Louisa Unavailable Ehsan GARZA, Jenni Primary Care Provider Pozsganne DO, Louisa Unavailable Jim CHAN, Wiliam Najera Primary Care Provider Ehsan GARZA, Jenni Primary Care Provider Doretha CHAN, Cristo Cobb Unavailable Amandeep BALDERAS, Christine Unavailable Hemanth Anderson MD, Antony Unavailable FERNANDEZ, WILIAM Primary Care Unavailable MATHEUS, MARIA G Referring Unavailable NAHUN SALAZAR Attending Unavailable FERNANDEZ, WILIAM Primary Care Unavailable ELBA ROJAS Attending Unavailable FERNANDEZ, WILIAM Primary Care Unavailable ELBA ROJAS Attending Unavailable KHANH LEE Attending Unavailable CHERIE, WILIAM Consulting Unavailable YADIEL BOSS Admitting Unavailable FERNANDEZ, WILIAM Primary Care Unavailable FERNANDEZ, WILIAM Primary Care Unavailable ANDERSON, ANTONY Attending Unavailable ANDERSON, ANTONY Admitting Unavailable FERNANDEZ, WILIAM Primary Care Unavailable SABA SAM Attending Unavailable JOEL RODRIGUES JR Attending Unavailable FERNANDEZ, WILIAM Primary Care Unavailable FERNANDEZ, WILIAM Primary Care Unavailable ANDERSON, ANTONY Attending Unavailable FERNANDEZ, WILIAM Primary Care Unavailable SABA SAM Referring Unavailable SABA SAM Attending Unavailable FERNANDEZ, WILIAM Primary Care Unavailable MATHEUS, MARIA G Referring Unavailable MATHEUS, MARIA G Attending Unavailable FERNANDEZ, WILIAM Primary Care Unavailable FERNANDEZ, WILIAM Referring Unavailable FERNANDEZ, WILIAM Attending Unavailable FERNANDEZ, WILIAM Primary Care Unavailable ELBA ROJAS Referring Unavailable ELBA ROJAS Attending Unavailable FERNANDEZ, WILIAM Primary Care Unavailable MARIA G JARVIS Referring Unavailable MATHEUS, MARIA G Attending Unavailable FERNANDEZ, WILIAM Primary Care Unavailable FERNANDEZ, WILIAM Referring Unavailable FERNANDEZ, WILIAM Attending Unavailable FERNANDEZ, WILIAM Primary Care Unavailable ANDERSON, ANTONY Attending Unavailable ANDERSON, ANTONY Admitting Unavailable FERNANDEZ, WILIAM Primary Care Unavailable FERNANDEZ, WILIAM Primary Care Unavailable MARIA G JARVIS Attending Unavailable FERNANDEZ, WILIAM Primary Care Unavailable FERNANDEZ, WILIAM Referring Unavailable JUAQUIN AMOS Attending Unavailable FERNANDEZ, WILIAM Primary Care Unavailable FERNANDEZ, WILIAM Primary Care Unavailable FERNANDEZ, WILIAM Primary Care Unavailable GEORGE WRIGHT Attending Unavailable FERNANDEZ, WILIAM Primary Care Unavailable FERNANDEZ, WILIAM Primary Care Unavailable ANDERSON, ANTONY Attending Unavailable FERNANDEZ, WILIAM Primary Care Unavailable MARIA G JARVIS Attending Unavailable FERNANDEZ, WILIAM Primary Care Unavailable FERNANDEZ, WILIAM Referring Unavailable ROJAS, ELBA Attending Unavailable JIM, WILIAM Primary Care Unavailable ANDERSON, ANTONY Referring Unavailable ANDERSON, ANTONY Attending Unavailable FERNANDEZ, WILIAM Primary Care Unavailable FERNANDEZ, WILIAM Primary Care Unavailable FERNANDEZ, WILIAM Referring Unavailable FERNANDEZ, WILIAM Attending Unavailable FERNANDEZ, WILIAM Primary Care Unavailable BROWN, MARIA G Referring Unavailable BROWN, MARIA G Attending Unavailable FERNNADEZ, WILIAM Primary Care Unavailable ANDERSON, ANTONY Referring Unavailable NAYA VENCES Attending Unavailable LEAH BELLA Consulting Unavailable JIM, WILIAM Primary Care Unavailable ANDERSON, ANTONY Attending Unavailable ANDERSON, ANTONY Admitting Unavailable JIM, WILIAM Primary Care Unavailable SABA SAM Attending Unavailable Allergies Allergy Classification Reported Allergen(s) Allergy Type Date of Onset Reaction(s) Facility NSAIDs (19 sources) NSAIDs Drug Allergy 1 [facility] (20 sources) Iodides Propensity to adverse reactions to drug 1 Other (See Comments) [facility] Work Phone: (20 sources) NSAIDs Propensity to adverse reactions to drug [facility] Iodides Propensity to adverse reactions to drug 1 Other (See Comments) [facility] (20 sources) Non-steroidal anti-inflammato ry agent Drug Intolerance 1 [facility] [employer] Medications Current Medications Medication Drug Class(es) Dates Sig (Normalized) Sig (Original) acetaminophen 500 mg oral tablet (20 sources) Start: 02-01-2025 End: 03-03-2025 take 2 tablets by mouth every eight hours as needed for pain acetaminophen (Tylenol Extra Strength) 500 MG tablet Take 2 tablets (1,000 mg) by mouth every 8 hours as needed for mild pain (1-3). 90 tablet 02/01/2025 03/03/2025 Active Start: 06-23-2024 End: 06-30-2024 take 1 tablet by mouth every six hours as needed for pain and fever acetaminophen (Tylenol) tablet 650 mg Start: 05-27-2024 End: 05-28-2024 take 1 tablet by mouth every six hours 650 mg, Oral, Every 6 hours, First dose on Thu05/27/24 at 1800, Phase II/On Unit Start: 05-27-2024 End: 07-20-2024 take 1 tablet by mouth every eight hours as needed for pain and pain acetaminophen (Tylenol 8 Hour) 650 MG ER tablet Take 1 tablet (650 mg) by mouth every 8 hours as needed for mild pain (1-3) or moderate pain (4-6) (take as needed for pain). Do not crush, chew, or split. 90 tablet 06/20/2024 07/20/2024 Start: 05-27-2024 End: 05-27-2024 1,000 mg, Oral, Once, On Thu05/27/24 at 1130, For 1 dose, Preprocedure, Administer 60 minutes prior to surgery. Start: 10-01-2023 End: 10-02-2023 take 1 tablet by mouth every six hours as needed for pain and fever acetaminophen (Tylenol) tablet 650 mg Start: 09-24-2023 End: 09-25-2023 take 1 tablet by mouth every eight hours acetaminophen (Tylenol) tablet 1,000 mg Start: 09-23-2023 End: 09-23-2023 acetaminophen (Tylenol) tabl et 1,000 mg Start: 09-16-2023 End: 09-16-2023 acetaminophen (Tylenol) tabl et 1,000 mg Start: 08-20-2023 End: 08-30-2023 take 2 tablets by mouth every six hours as needed for pain and fever acetaminophen (Tylenol) 325 MG tablet Take 2 tablets (650 mg) by mouth every 6 hours as needed for mild pain (1-3) or fever (For temp greater than 100.4 F (38 C)) for up to 10 days. 0 08/20/2023 08/30/2023 Active Start: 08-18-2023 End: 08-20-2023 take 1 tablet by mouth every six hours as needed for pain and fever acetaminophen (Tylenol) tablet 650 mg Start: 02-28-2023 End: 03-03-2023 take 1 tablet by mouth every eight hours 1,000 mg, Oral, Every 8 hours, First dose on 02/28/23 at 0415 Start: 07-03-2022 End: 07-03-2022 acetaminophen (Tylenol) tabl et 1,000 mg Start: 12-18-2021 take 1 dose by mouth three times daily 1,000 mg, Oral, EVERY 8 HOURS SCHEDULED (3 times per day), First dose on Thu12/18/21 at 0600, Until Discontinued Maximum dose of acetaminophen is 4000 mg from all sources in 24 hours. Start: 12-03-2021 End: 12-03-2021 acetaminophen (TYLENOL) tabl et 1,000 mg Start: 01-07-2021 acetaminophen (TYLENOL) tablet 1,000 mg Start: 11-19-2020 acetaminophen (TYLENOL) tablet 1,000 mg Start: 10-26-2020 acetaminophen (TYLENOL) tablet 1,000 mg Start: 10-04-2020 End: 10-09-2020 take 2 tablets by mouth four times daily as needed for pain acetaminophen (TYLENOL) 500 MG tablet Take 2 tablets by mouth 4 times daily as needed for Pain 20 tablet 0 10/04/2020 Active Start: 09-29-2020 acetaminophen (TYLENOL) tablet 650 mg Start: 09-29-2020 acetaminophen (TYLENOL) tablet 1,000 mg Start: 09-11-2020 acetaminophen (TYLENOL) tablet 650 mg Start: 08-25-2020 acetaminophen (TYLENOL) tablet 1,000 mg Start: 08-22-2020 End: 08-25-2020 acetaminophen (TYLENOL) tabl et 650 mg Start: 07-23-2020 acetaminophen (TYLENOL) tablet 650 mg Start: 06-08-2020 acetaminophen (TYLENOL) tablet 650 mg Start: 06-04-2020 acetaminophen (TYLENOL) tablet 650 mg Start: 04-29-2020 acetaminophen (TYLENOL) tablet 650 mg Start: 04-29-2020 End: 04-29-2020 acetaminophen (TYLENOL) tabl et 1,000 mg acetaminophen 325 mg / HYDROcodone bitartrate 5 mg oral tablet (14 sources) Opioid Agonist Start: 08-03-2024 End: 08-06-2024 take 1 tablet by mouth every six hours as needed for pain HYDROcodone-acetaminophen ([place]) 5-325 MG tablet Indications: Acute exacerbation of chronic low back pain Take 1 tablet by mouth every 6 hours as needed for severe pain (7-10) for up to 3 days. 10 tablet 08/03/2024 08/06/2024 Active Start: 06-18-2024 End: 06-18-2024 1 tablet, Oral, Once, On 06/18/24 at 1850, For 1 dose, Maximum dose of acetaminophen is 4000 mg from all sources in 24 hours. Start: 10-21-2021 End: 10-21-2021 HYDROcodone-acetaminophen (N ORCO) 5-325 MG per tablet 1 tablet Start: 10-21-2021 End: 10-24-2021 HYDROcodone-acetaminophen (N ORCO) 5-325 MG per tablet Indications: Knee pain, unspecified chronicity, unspecified laterality Take 1 tablet by mouth every 6 hours as needed for Pain for up to 3 days. Intended supply: 3 days. Take lowest dose possible to manage pain 10 tablet 0 10/21/2021 10/24/2021 Active Start: 02-11-2021 End: 02-11-2021 HYDROcodone-acetaminophen (N ORCO) 5-325 MG per tablet 1 tablet Start: 02-09-2021 End: 02-09-2021 HYDROcodone-acetaminophen (N ORCO) 5-325 MG per tablet 1 tablet Start: 01-07-2021 End: 01-10-2021 HYDROcodone-acetaminophen (N ORCO) 5-325 MG per tablet Indications: Leg swelling Take 1 tablet by mouth every 6 hours as needed for Pain for up to 3 days. Intended supply: 3 days. Take lowest dose possible to manage pain 10 tablet 0 01/07/2021 01/10/2021 Active Start: 01-07-2021 End: 01-07-2021 HYDROcodone-acetaminophen (N ORCO) 5-325 MG per tablet 1 tablet Start: 10-04-2020 End: 10-04-2020 HYDROcodone-acetaminophen (N ORCO) 5-325 MG per tablet 1 tablet acetaminophen 325 mg / oxyCODONE hydrochloride 5 mg oral tablet (20 sources) Opioid Agonist Start: 09-27-2024 End: 09-30-2024 take 1 tablet by mouth every six hours as needed for pain oxyCODONE-acetaminophen (Percocet) 5-325 MG tablet Indications: Chronic hip pain after total replacement of right hip joint Take 1 tablet by mouth every 6 hours as needed for severe pain (7-10) for up to 3 days. 12 tablet 09/27/2024 09/30/2024 Active Start: 09-27-2024 End: 09-27-2024 1 tablet, Oral, Once, On Thu09/27/24 at 1325, For 1 dose, Maximum dose of acetaminophen is 4000 mg from all sources in 24 hours. Start: 05-27-2024 End: 05-28-2024 take 2 tablets by mouth every four hours as needed for pain 2 tablet, Oral, Every 4 hours PRN, severe pain (7-10), Starting on Thu05/27/24 at 1745, Phase II/On Unit, Maximum dose of acetaminophen is 4000 mg from all sources in 24 hours. Start: 10-02-2023 End: 10-02-2023 take 1 tablet by mouth every four hours as needed for pain and pain 1 tablet, Oral, Every 4 hours PRN, severe pain (7-10), moderate pain (4-6), Starting on Thu10/02/23 at 0923, Maximum dose of acetaminophen is 4000 mg from all sources in 24 hours. Start: 09-30-2023 End: 07-05-2024 take 1 tablet by mouth every eight hours as needed for pain oxyCODONE-acetaminophen (Percocet) 5-325 MG tablet Indications: Pain and swelling of left lower leg , Laceration of left lower extremity, initial encounter Take 1 tablet by mouth every 8 hours as needed for severe pain (7-10) for up to 5 days. 10 tablet 06/30/2024 12:18 PM EDT 06/30/2024 07/05/2024 Active Start: 09-16-2023 End: 10-01-2023 take 1 tablet by mouth every six hours as needed for pain oxyCODONE-acetaminophen (Percocet) 5-325 MG tablet Indications: Pannus, abdominal Take 1 tablet by mouth every 6 hours as needed for severe pain (7-10) for up to 3 days. 12 tablet 09/28/2023 10/01/2023 Discontinued (Therapy completed) Start: 08-18-2023 End: 08-18-2023 take 1 tablet by mouth every eight hours as needed for pain 1 tablet, Oral, Every 8 hours PRN, moderate pain (4-6), Starting on Thu08/18/23 at 0445, Maximum dose of acetaminophen is 4000 mg from all sources in 24 hours. Start: 01-30-2023 End: 08-20-2023 take 1 tablet by mouth twice daily oxyCODONE-acetaminophen (Percocet) 5-325 MG tablet Take 1 tablet by mouth 2 times daily. 0 01/30/2023 08/20/2023 Discontinued (Stop taking at discharge) Start: 12-04-2021 oxyCODONE-acet aminophen (PERCOCET) 5-325 MG per tablet 1 tablet Start: 12-03-2021 End: 06-01-2022 oxyCODONE-acetaminophen (Per cocet) 5-325 MG tablet TAKE 1 TABLET BY MOUTH EVERY 6 HOURS NEEDED FOR PAIN FOR UP TO 7 DAYS. INTENDED SUPPLY: 7 DAYS. TAKE LOWEST DOSE POSSIBLE TO MANAGE PAIN 28 tablet 0 12/03/2021 06/01/2022 Active Start: 10-02-2021 End: 10-03-2021 oxyCODONE-acetaminophen (PER COCET) 5-325 MG per tablet 1 tablet Start: 11-01-2020 End: 11-04-2020 oxyCODONE-acetaminophen (PER COCET) 5-325 MG per tablet Indications: Bladder spasm , Urinary retention Take 1 tablet by mouth every 6 hours as needed for Pain for up to 3 days. Intended supply: 3 days. Take lowest dose possible to manage pain 12 tablet 0 11/01/2020 11/04/2020 Active Start: 11-01-2020 End: 11-01-2020 oxyCODONE-acetaminophen (PER COCET) 5-325 MG per tablet 1 tablet Start: 10-04-2020 End: 10-04-2020 oxyCODONE-acetaminophen (PER COCET) 5-325 MG per tablet 1 tablet Start: 06-11-2020 oxyCODONE-acet aminophen (PERCOCET) 5-325 MG per tablet 2 tablet Start: 06-06-2020 End: 06-11-2020 take 1 tablet by mouth every six hours as needed for pain, then take 1 tablet by mouth as needed for pain oxyCODONE-acetaminophen (PERCOCET) 5-325 MG per tablet Indications: Generalized abdominal pain Take 1 tablet by mouth every 6 hours as needed for Pain for up to 5 days. Intended supply: 5 days. Take lowest dose possible to manage pain 15 tablet 0 06/11/2020 06/11/2020 Discontinued (Stop Taking at Discharge) Start: 06-04-2020 oxyCODONE-acet aminophen (PERCOCET) 5-325 MG per tablet 2 tablet Start: 06-04-2020 End: 06-04-2020 take 1 tablet by mouth every four hours as needed for pain 1 tablet, Oral, EVERY 4 HOURS PRN, Pain Moderate (4-6), Pain Severe (7-10), Starting Thu06/04/20 at 1418 Maximum dose of acetaminophen is 4000 mg from all sources in 24 hours. Start: 03-30-2020 End: 03-30-2020 oxyCODONE-acetaminophen (PER COCET) 5-325 MG per tablet 1 tablet Start: 03-30-2020 End: 04-02-2020 take 1 tablet by mouth every six hours as needed for pain oxyCODONE-acetaminophen (PERCOCET) 5-325 MG per tablet Indications: Chest pain, unspecified type , Bilateral leg edema Take 1 tablet by mouth every 6 hours as needed for Pain for up to 3 days. WARNING: May cause drowsiness. May impair ability to operate vehicles or machinery. Do not use in combination with alcohol. 10 tablet 0 03/30/2020 04/02/2020 Active take 1 tablet by th three times daily oxyCODONE-acetaminophen (Percocet) 5-325 MG tablet Take 1 tablet by mouth 3 times daily. 0 Suspended albuterol 0.833 mg/ml / ipratropium bromide 0.167 mg/ml inhalation solution (7 sources) Anticholinergic, beta2-Adrenergic Agonist Start: 09-29-2020 ipratropium-albuterol (DUONEB) nebulizer solution 1 ampule Start: 09-11-2020 1 ampule, Inha lation, EVERY 4 HOURS WHILE AWAKE, First dose on Thu09/11/20 at 2000 Start: 08-22-2020 End: 08-23-2020 ipratropium-albuterol (DUONE B) nebulizer solution 1 ampule Start: 07-24-2020 End: 07-25-2020 ipratropium-albuterol (DUONE B) nebulizer solution 1 ampule Start: 07-23-2020 End: 07-24-2020 1 ampule, Inhalation, 4 TIME S DAILY, First dose on 07/23/20 at 2145 Start: 04-21-2020 End: 04-21-2020 ipratropium-albuterol (DUONE B) nebulizer solution 1 ampule albuterol sulfate HFA 108 (90 Base) MCG/ACT inhaler 2 puff (1 source) Start: 07-25-2020 albuterol sulf ate HFA 108 (90 Base) MCG/ACT inhaler 2 puff aspirin 81 mg delayed release oral tablet (20 sources) Platelet Aggregation Inhibitor, Nonsteroidal Anti-inflammatory Drug Start: 05-27-2024 End: 07-30-2024 aspirin (ASPIR) 81 MG EC tablet Take 1 tablet (81 mg) by mouth 2 times daily. Take 2 times a day for 30 days. This is for blood clot prevention. 60 tablet 06/30/2024 12:18 PM EDT 06/30/2024 07/30/2024 Active Start: 09-25-2020 End: 06-30-2024 take 81 mg by mouth once daily 81 mg, Oral, Daily, Fir st dose on Thu06/24/24 at 0900, Do not crush, chew, or split. Start: 07-24-2020 aspirin EC tab let 81 mg Start: 07-23-2020 End: 07-23-2020 aspirin chewable tablet 324 mg Start: 04-29-2020 End: 08-20-2023 aspirin chewable tablet 81 m g End: 06-06-2020 take 1 tablet by mouth once daily aspirin 81 MG tablet Take 81 mg by mouth daily. 0 06/06/2020 Discontinued (Stop Taking at Discharge) 24 hr buPROPion hydrochloride 150 mg extended release oral tablet (20 sources) Aminoketone Start: 03-10-2022 End: 06-30-2024 take 1 tablet by mouth once daily buPROPion XL (Wellbutrin XL) 150 MG 24 hr tablet Take 150 mg by mouth daily. 03/10/2022 Active Start: 12-04-2021 take 150 mg by mouth twice daily 150 mg, Oral, 2 TIMES DAILY, First dose on Thu12/18/21 at 0200, Until Discontinued Do not crush or break. STAT calcium carbonate 500 mg chewable tablet (3 sources) Start: 12-09-2021 take 1 tablet by mouth three times daily calcium carbonate (TUMS) 500 MG chewable tablet Take 1 tablet by mouth 3 times daily 0 12/09/2021 Active cefadroxil 500 mg oral capsule (2 sources) Cephalosporin Antibacterial Start: 05-27-2024 End: 06-03-2024 take 1 capsule by mouth twice daily in the evening cefadroxil (Duricef) 500 MG capsule Take 1 capsule (500 mg) by mouth 2 times daily for 7 days. Take 2 times a day for 7 days. Take this entire prescription. 14 capsule 05/27/2024 5:30 PM EST 05/27/2024 06/03/2024 Active cefpodoxime 200 mg oral tablet (3 sources) Cephalosporin Antibacterial Start: 08-21-2023 End: 08-31-2023 take 1 tablet by mouth twice daily cefpodoxime (Vantin) 200 MG tablet Take 1 tablet (200 mg) by mouth 2 times daily for 10 days. 20 tablet 0 08/21/2023 08/31/2023 Active cholecalciferol 1000 unt oral tablet (1 source) Vitamin D Start: 04-29-2020 take 2000 [IU] by mouth once daily 2,000 Units, Oral, DAILY, First dose on 04/29/20 at 1600 Maintenance Dose. CPAP Machine MISC (15 sources) CPAP Machine MISC Indications: Obstructive Sleep Apnea Syndrome 12 cm by Does not apply route at bedtime Indications: Obstructive Sleep Apnea Syndrome Pt owns 0 Suspended CPAP Machine MIS C Indications: Obstructive Sleep Apnea Syndrome 12 cm by Does not apply route at bedtime Indications: Obstructive Sleep Apnea Syndrome Pt owns 0 Active CPAP Machine MIS C 12 cm by Does not apply route Pt owns 0 Active CPAP Machine MIS C 12 cm by Does not apply route [employer] 0 Active cyclobenzaprine hydrochloride 10 mg oral tablet (20 sources) Muscle Relaxant Start: 08-03-2024 End: 08-13-2024 take 1 tablet by mouth twice daily as needed for muscle spasms cyclobenzaprine (Flexeril) 10 MG tablet Indications: Acute exacerbation of chronic low back pain Take 1 tablet (10 mg) by mouth 2 times daily as needed for muscle spasms for up to 10 days. 20 tablet 08/03/2024 Active Start: 02-09-2021 End: 10-03-2021 take 1 tablet by mouth three times daily as needed for muscle spasms cyclobenzaprine (FLEXERIL) 10 MG tablet Take 1 tablet by mouth 3 times daily as needed for Muscle spasms 15 tablet 0 02/09/2021 10/03/2021 Discontinued (Therapy completed) Start: 10-04-2020 End: 10-04-2020 cyclobenzaprine (FLEXERIL) t ablet 5 mg Start: 10-04-2020 End: 10-09-2020 take 1 tablet by mouth three times daily as needed for muscle spasms cyclobenzaprine (FLEXERIL) 10 MG tablet Take 1 tablet by mouth 3 times daily as needed for Muscle spasms 15 tablet 0 10/04/2020 10/09/2020 Active Start: 07-25-2020 End: 08-04-2020 take 1 tablet by mouth three times daily as needed for muscle spasms cyclobenzaprine (FLEXERIL) 10 MG tablet Take 1 tablet by mouth 3 times daily as needed for Muscle spasms 30 tablet 0 07/25/2020 08/04/2020 Active cyclophosphamide 50 mg oral capsule (20 sources) Alkylating Drug Start: 09-29-2020 cyclophosphami de (CYTOXAN) 50 MG capsule CAPS 150 mg Start: 09-25-2020 End: 02-28-2023 cyclophosphamide (Cytoxan) 5 0 MG capsule 150 mg. 0 09/25/2020 02/28/2023 Discontinued (Therapy completed) Start: 09-13-2020 take 3 capsules by m outh twice daily cyclophosphamide (CYTOXAN) 50 MG CAPS capsule Take 3 capsules by mouth 2 times daily 180 capsule 0 09/13/2020 Active Start: 09-12-2020 cyclophosphami de (CYTOXAN) 50 MG capsule CAPS 150 mg Start: 08-22-2020 take 150 mg by mouth every six hours 150 mg, Oral, EVERY 6 HOURS, First dose on Thu08/22/20 at 1745 Do not crush or break. Hazardous Medication -- Refer to facility policy for handling and disposal. Start: 07-23-2020 take 150 mg by mouth twice daily 150 mg, Oral, 2 TIMES DAILY, First dose on Thu07/23/20 at 1800 Do not crush or break. Hazardous Medication -- Refer to facility policy for handling and disposal. STAT End: 09-13-2020 take 3 capsules by mouth every six hours cyclophosphamide (CYTOXAN) 50 MG CAPS capsule Take 150 mg by mouth every 6 hours 0 09/13/2020 Discontinued (REORDER) take 3 capsules by m outh twice daily cyclophosphamide (CYTOXAN) 50 MG CAPS capsule Take 150 mg by mouth 2 times daily 0 Active dextromethorphan hydrobromide 2 mg/ml / guaiFENesin 20 mg/ml oral suspension (1 source) Uncompetitive J-pmerhv-E-aspartate Receptor Antagonist, Sigma-1 Agonist Start: 04-29-2020 take 5 mL by mouth every four hours as needed for cough 5 mL, Oral, EVERY 4 HOURS PRN, Cough, Starting 04/29/20 at 1512 diazePAM 5 mg oral tablet (14 sources) Benzodiazepine Start: 02-15-2025 End: 02-17-2025 take 1 tablet by mouth once daily as needed for anxiety diazePAM (Valium) 5 MG tablet Indications: Chronic right hip pain Take 1 tablet (5 mg) by mouth Daily as needed for anxiety for up to 2 days. 2 tablet 02/15/2025 02/17/2025 Active Start: 08-03-2023 End: 08-20-2023 diazePAM (Valium) 5 MG table t Indications: Preprocedural Take 1 tablet (5 mg) by mouth Once for 1 dose. Please take 30 minutes prior to your procedure. 1 tablet 0 08/03/2023 08/20/2023 Discontinued (Stop taking at discharge) Start: 08-03-2023 End: 08-03-2023 diazePAM (Valium) 10 MG tabl et Indications: Preprocedural Take 1 tablet (10 mg) by mouth Once for 1 dose. Please take 30 minutes prior to your procedure. 1 tablet 0 08/03/2023 08/03/2023 Discontinued Start: 08-03-2020 End: 08-03-2020 diazePAM (VALIUM) tablet 5 m g doxycycline hyclate 100 mg oral capsule (4 sources) Tetracycline-class Drug Start: 06-10-2022 End: 06-17-2022 doxycycline (Vibramycin) 100 MG capsule Take 1 capsule (100 mg) by mouth 2 times daily for 7 days. Take with at least 8 ounces (large glass) of water, do not lie down for 30 minutes after 14 capsule 0 06/10/2022 06/17/2022 Active erythromycin 0.005 mg/mg ophthalmic ointment (17 sources) Macrolide, Macrolide Antimicrobial Start: 01-07-2021 apply 3.5 g into the eye(s) four times daily erythromycin (ROMYCIN) 5 MG/GM ophthalmic ointment Apply to your eye 4 times a day 3.5 g 0 01/07/2021 Active 2 ml fentaNYL 0.05 mg/ml injection (8 sources) Opioid Agonist Start: 11-19-2020 fentaNYL (SUBLIMAZE) injection 50 mcg Start: 11-19-2020 fentaNYL (SUBL IMAZE) injection 25 mcg Start: 10-31-2020 End: 10-31-2020 fentaNYL (SUBLIMAZE) injecti on 50 mcg Start: 10-26-2020 fentaNYL (SUBL IMAZE) injection 50 mcg Start: 10-26-2020 fentaNYL (SUBL IMAZE) injection 25 mcg Start: 06-05-2020 End: 06-05-2020 fentaNYL (SUBLIMAZE) injecti on finasteride 5 mg oral tablet (20 sources) 5-alpha Reductase Inhibitor Start: 08-27-2023 End: 08-26-2024 take 1 tablet by mouth once daily finasteride (Proscar) 5 MG tablet Indications: Gross hematuria TAKE 1 TABLET BY MOUTH ONCE DAILY *DO NOT CRUSH, CHEW AND/OR DIVIDE 30 tablet 10 06/28/2024 Active furosemide 40 mg oral tablet (20 sources) Loop Diuretic Start: 12-18-2021 End: 12-19-2021 take 80 mg by mouth twice daily 80 mg, Oral, 2 TIMES DAILY, First dose on Thu12/18/21 at 0800, Until Discontinued Start: 07-05-2021 End: 08-20-2023 take 1 tablet by mouth once daily furosemide (Lasix) 40 MG tablet Take 40 mg by mouth daily. 0 07/05/2021 08/20/2023 Discontinued (Stop taking at discharge) Start: 01-07-2021 End: 01-07-2021 furosemide (LASIX) injection 80 mg Start: 10-31-2020 End: 10-31-2020 furosemide (LASIX) injection 80 mg Start: 09-29-2020 End: 10-02-2020 furosemide (LASIX) injection 40 mg Start: 08-22-2020 End: 08-25-2020 furosemide (LASIX) injection 80 mg Start: 06-11-2020 End: 07-25-2020 take 2 tablets by mouth once daily furosemide (LASIX) 40 MG tablet Take 2 tablets by mouth daily 120 tablet 1 06/11/2020 07/25/2020 Discontinued (Stop Taking at Discharge) Start: 06-10-2020 furosemide (LA SIX) tablet 80 mg Start: 06-09-2020 furosemide (LA SIX) injection 80 mg Start: 06-06-2020 End: 06-11-2020 take 1 tablet by mouth once daily furosemide (LASIX) 40 MG tablet Take 1 tablet by mouth daily 60 tablet 3 06/06/2020 06/11/2020 Discontinued (REORDER) Start: 06-04-2020 40 mg, Intrave nous, 2 TIMES DAILY, First dose on Thu06/04/20 at 1730 Start: 03-30-2020 furosemide (LA SIX) injection 20 mg Start: 03-30-2020 End: 04-29-2020 take 1 tablet by mouth once daily furosemide (LASIX) 20 MG tablet Take 1 tablet by mouth daily for 5 days Start tomorrow 5 tablet 0 03/30/2020 04/29/2020 Discontinued (DISCONTINUED BY ANOTHER CLINICIAN) take 2 tablets by mo uth twice daily furosemide (LASIX) 40 MG tablet Take 80 mg by mouth 2 times daily 0 Active glucagon (rdna) 1 mg injection (1 source) Antihypoglycemic Agent Start: 07-24-2020 glucago n (rDNA) injection 1 mg 150 ml glucose 50 mg/ml injection (3 sources) Start: 07-24-2020 dextrose 5 % s olution Start: 07-24-2020 glucose (GLUTO SE) 40 % oral gel 15 g Start: 07-24-2020 dextrose 50 % IV solution 500 ml glucose 50 mg/ml / potassium chloride 0.02 meq/ml / sodium chloride 4.5 mg/ml injection (1 source) Start: 12-03-2021 IntraVENous, a t 75 mL/hr, CONTINUOUS, Starting on Thu12/03/21 at 1315, Post-op 1 ml hydrALAZINE hydrochloride 20 mg/ml injection (2 sources) Arteriolar Vasodilator Start: 11-19-2020 hydrALAZINE (APRESOLINE) injection 5 mg Start: 10-26-2020 hydrALAZINE (A PRESOLINE) injection 5 mg HYDROmorphone (DILAUDID) injection 0.25 mg (2 sources) Start: 12-18-2021 HYDROmorphone (DILAUDID) injection 0.25 mg Start: 12-03-2021 HYDROmorphone (DILAUDID) injection 0.25 mg hydrOXYzine pamoate 50 mg oral capsule (20 sources) Antihistamine Start: 02-01-2025 End: 02-11-2025 take 1 capsule by mouth every six hours as needed hydrOXYzine pamoate (Vistaril) 50 MG capsule Take 1 capsule (50 mg) by mouth every 6 hours as needed for itching for up to 10 days. 30 capsule 02/01/2025 Active Start: 02-17-2022 End: 08-20-2023 take 1 capsule by mouth in the morning hydrOXYzine pamoate (Vistaril) 25 MG capsule Take 25 mg by mouth in the morning and 25 mg before bedtime. 0 02/17/2022 08/20/2023 Discontinued (Stop taking at discharge) Start: 11-05-2021 hydrOXYzine pa moate (VISTARIL) 25 MG capsule Take 25 mg by mouth as needed 0 11/05/2021 Active insulin lispro 100 unt/ml injectable solution (2 sources) Insulin Analog Start: 07-24-2020 insulin lispro (HUMALOG) injection vial 0-6 Units labetalol hydrochloride 5 mg/ml injectable solution (3 sources) beta-Adrenergic Camelia Start: 11-19-2020 labetalol (NORMODYNE;TRANDATE) injection 5 mg Start: 10-26-2020 labetalol (NOR MODYNE;TRANDATE) injection 5 mg Start: 07-23-2020 10 mg, Intrave nous, EVERY 10 MIN PRN, High Blood Pressure, Starting 07/23/20 at 2115 Administer 10 mg IV every 10 min if SBP is 210 mmHg or greater OR DBP is 120 mmHg or greater as long as HR is greater than 65bpm until goal BP has been achieved and to a max of 30 mg Notify provider if SBP is 210 mmHg or greater OR DBP is 120 mmHg or greater after 3 consecutive doses. If HR is less than 65 call MD for further orders melatonin 3 mg oral tablet (3 sources) Start: 09-29-2020 melatonin tabl et 3 mg Start: 09-11-2020 melatonin tabl et 6 mg Start: 08-22-2020 melatonin tabl et 6 mg methylPREDNISolone 4 mg oral tablet (20 sources) Corticosteroid Start: 09-27-2024 methylPREDNISo lone (Medrol Dospak) 4 MG tablets Use as directed by package instructions 21 tablet 09/27/2024 Active Start: 02-21-2023 End: 02-21-2023 methylPREDNISolone sod suc ( PF) (SOLU-Medrol) 40 MG injection 40 mg Start: 07-23-2020 End: 07-23-2020 methylPREDNISolone sodium (S RYAN-MEDROL) injection 125 mg Start: 04-22-2019 methylPREDNISo lone (MEDROL, JHONATHAN,) 4 mg Dose-Pack As Instructed per package 1 Package 0 04/22/2019 Active Comment on above: As Instructed per pa isreal Multiple Vitamins-Minerals (MULTIVITAMIN ADULTS 50+ PO) (20 sources) take 1 tablet by mouth once daily Multiple Vitamins-Minerals (MULTIVITAMIN ADULTS 50+ PO) Take 1 tablet by mouth daily. Active Multiple Vitamin s-Minerals (MULTIVITAMIN ADULTS 50+ PO) Take by mouth. Active Multiple Vitamin s-Minerals (MULTIVITAMIN ADULTS 50+ PO) Take by mouth. 0 Suspended Multiple Vitamin s-Minerals (MULTIVITAMIN ADULTS 50+ PO) Take by mouth. 0 Active Multiple Vitamins-Minerals (ONE-A-DAY MENS 50+ PO) (3 sources) take 1 tablet by mouth once daily Multiple Vitamins-Minerals (ONE-A-DAY MENS 50+ PO) Take 1 tablet by mouth daily 0 Active naproxen 500 mg oral tablet (2 sources) Nonsteroidal Anti-inflammatory Drug Start: 2022 End: 2022 take 1 tablet by mouth in the morning naproxen (Naprosyn) 500 MG tablet Take 1 tablet (500 mg) by mouth in the morning and 1 tablet (500 mg) in the evening. Take with meals. Do all this for 5 days. 10 tablet 0 06/10/2022 06/15/2022 Active nitrofurantoin, macrocrystals 25 mg / nitrofurantoin, monohydrate 75 mg oral capsule (2 sources) Nitrofuran Antibacterial Start: 2020 End: 2020 take 1 capsule by mouth twice daily nitrofurantoin, macrocrystal-monohydrat e, (MACROBID) 100 MG capsule Indications: Decreased urine stream Take 1 capsule by mouth 2 times daily for 7 days 14 capsule 0 11/14/2020 11/21/2020 Active Start: 10-21-2020 End: 10-28-2020 take 1 capsule by mouth twice daily nitrofurantoin, macrocrystal-monohydrate , (MACROBID) 100 MG capsule Take 1 capsule by mouth 2 times daily for 7 days 14 capsule 0 10/21/2020 10/28/2020 Suspended ondansetron (ZOFRAN-ODT) disintegrating tablet 4 mg (1 source) Start: 09-29-2020 ondansetron (ZOFRAN-ODT) disintegrating tablet 4 mg 24 hr oxybutynin chloride 10 mg extended release oral tablet (20 sources) Cholinergic Muscarinic Antagonist Start: 11-01-2020 take 1 tablet by mouth once daily oxybutynin (DITROPAN XL) 10 MG extended release tablet Take 1 tablet by mouth daily 30 tablet 3 11/01/2020 Active oxyCODONE hydrochloride 5 mg oral tablet (20 sources) Opioid Agonist Start: 02-01-2025 End: 03-03-2025 take 1 tablet by mouth three times daily oxyCODONE (Roxicodone) 5 MG immediate release tablet Indications: Chronic prescription opiate use Take 1 tablet (5 mg) by mouth 3 times daily. 90 tablet 02/01/2025 03/03/2025 Active Start: 06-26-2024 End: 06-30-2024 take 1 tablet by mouth every four hours as needed for pain 5 mg, Oral, Every 4 hours PRN, severe pain (7-10), Starting on Thu06/26/24 at 0950 Start: 09-24-2023 End: 09-25-2023 take 1 tablet by mouth every four hours as needed for pain oxyCODONE (Roxicodone) immediate release tablet 10 mg Start: 09-23-2023 End: 09-24-2023 take 1 tablet by mouth every four hours as needed for pain 5 mg, Oral, Every 4 hours PRN, moderate pain (4-6), Starting on Thu09/23/23 at 1407, Phase II/On Unit Start: 08-19-2023 End: 08-20-2023 take 1 tablet by mouth every four hours as needed for pain oxyCODONE (Roxicodone) immediate release tablet 10 mg Start: 02-28-2023 End: 03-03-2023 take 1 tablet by mouth every four hours as needed for pain oxyCODONE (Roxicodone) immediate release tablet 5 mg Start: 12-18-2021 oxyCODONE (LIANNA ICODONE) immediate release tablet 5 mg Start: 09-13-2020 End: 09-18-2020 take 1 tablet by mouth every eight hours as needed for pain oxyCODONE (ROXICODONE) 5 MG immediate release tablet Indications: Degenerative disc disease, lumbar , Degenerative disc disease, thoracic Take 1 tablet by mouth every 8 hours as needed for Pain for up to 5 days. 15 tablet 0 09/13/2020 09/18/2020 Active Start: 09-12-2020 oxyCODONE (LIANNA ICODONE) immediate release tablet 5 mg Start: 08-19-2020 End: 08-19-2020 oxyCODONE (ROXICODONE) immed iate release tablet 5 mg Start: 07-24-2020 End: 07-24-2020 oxyCODONE (ROXICODONE) immed iate release tablet 5 mg Start: 07-23-2020 oxyCODONE (LIANNA ICODONE) immediate release tablet 5 mg End: 02-01-2025 take 1 tablet by mouth twice daily oxyCODONE (Roxicodone) 5 MG immediate release tablet Take 5 mg by mouth 2 times daily. 02/01/2025 Discontinued (Reorder) pantoprazole 40 mg delayed release oral tablet (20 sources) Proton Pump Inhibitor Start: 03-02-2022 End: 09-22-2024 take 1 tablet by mouth once daily pantoprazole (ProtoNix) 40 MG EC tablet Indications: Gastroesophageal reflux disease without esophagitis , Generalized abdominal pain Take 1 tablet (40 mg) by mouth daily. 30 tablet 5 09/22/2024 Active Start: 06-06-2020 take 1 tablet by boris th twice daily at mealtime pantoprazole (PROTONIX) 40 MG tablet Take 1 tablet by mouth 2 times daily (with meals) 30 tablet 1 06/06/2020 Active Start: 12-19-2013 End: 08-26-2020 take 1 tablet by mouth once daily pantoprazole (PROTONIX) 40 MG tablet Take 40 mg by mouth daily 0 05/28/2020 08/26/2020 Discontinued (Stop Taking at Discharge) pantoprazole (PROTONIX) injection 40 mg (1 source) Start: 06-04-2020 pantoprazole ( PROTONIX) injection 40 mg Pediatric Multivitamins-Iron (CHILDRENS MULTIVITAMIN/IRON PO) (3 sources) Start: 12-09-2021 take 1 tablet by mouth once daily Pediatric Multivitamins-Iron (CHILDRENS MULTIVITAMIN/IRON PO) Take 1 tablet by mouth daily 0 12/09/2021 Suspended Start: 12-09-2021 take 1 tablet by boris th once daily Pediatric Multivitamins-Iron (CHILDRENS MULTIVITAMIN/IRON PO) Take 1 tablet by mouth daily 0 12/09/2021 Active perflutren lipid microspheres (DEFINITY) injection 1.65 mg (1 source) Start: 07-24-2020 End: 07-27-2020 perflutren lipid microspheres (DEFINITY) injection 1.65 mg predniSONE 20 mg oral tablet (20 sources) Start: 10-04-2020 End: 10-09-2020 take 1 tablet by mouth twice daily predniSONE (DELTASONE) 20 MG tablet Take 1 tablet by mouth 2 times daily for 5 days 10 tablet 0 10/04/2020 10/09/2020 Active Start: 09-11-2020 End: 09-12-2020 take 60 mg by mouth once daily 60 mg, Oral, DAILY, Fir st dose on Thu09/11/20 at 1841, For 5 days Start: 08-27-2020 End: 09-17-2020 take 3 tablets by mouth once daily predniSONE (DELTASONE) 20 MG tablet Take 3 tablets by mouth daily for 21 days 63 tablet 0 08/27/2020 09/11/2020 Discontinued (LIST CLEANUP) Start: 08-23-2020 predniSONE (DE LTASONE) tablet 60 mg Start: 04-21-2020 End: 04-25-2020 take 3 tablets by mouth once daily predniSONE (DELTASONE) 20 MG tablet Take 3 tablets by mouth daily for 4 days 12 tablet 0 04/21/2020 04/25/2020 Active Start: 04-21-2020 End: 04-21-2020 predniSONE (DELTASONE) table t 60 mg Start: 06-17-2018 End: 03-30-2020 predniSONE (DELTASONE) 10 MG tablet 4 tabs qam x 4d, then 2tabs qam x 4d, then 1 tab qam x 4d 28 tablet 0 06/17/2018 03/30/2020 Discontinued (LIST CLEANUP) End: 08-22-2020 predniSONE (DELTASONE) 20 MG tablet Take 20 mg by mouth daily 4 tabs daily total 80mg 0 Active End: 06-06-2020 take 1 tablet by mouth once daily predniSONE (DELTASONE) 1 MG tablet Indications: Pt does not remember dose Take 1 mg by mouth daily Indications: Pt does not remember dose 0 06/06/2020 Discontinued (Stop Taking at Discharge) remdesivir 100 mg in sodium chloride 0.9 % 250 mL IVPB (1 source) Start: 04-30-2020 End: 05-04-2020 remdesivir 100 mg in sodium chloride 0.9 % 250 mL IVPB sennosides, fpc 1.76 mg/ml oral solution (1 source) Start: 09-11-2020 take 8.8 mg by mouth once daily for constipation 8.8 mg (5 mL), Oral, NIGHTLY, First dose on Thu09/11/20 at 2100 First line therapy for constipation sertraline 50 mg oral tablet (20 sources) Serotonin Reuptake Inhibitor Start: 01-23-2023 End: 05-28-2024 take 1 tablet by mouth once daily sertraline (Zoloft) 50 MG tablet Take 50 mg by mouth daily. 01/23/2023 Active sodium chloride flush 0.9 % injection 3 mL (3 sources) Start: 02-11-2021 sodium chloride flush 0.9 % injection 3 mL Start: 10-31-2020 sodium chlorid e flush 0.9 % injection 3 mL Start: 10-30-2020 sodium chlorid e flush 0.9 % injection 3 mL sulfamethoxazole 800 mg / trimethoprim 160 mg oral tablet (20 sources) Dihydrofolate Reductase Inhibitor Antibacterial, Sulfonamide Antimicrobial Start: 06-29-2024 End: 07-04-2024 take 2 tablets by mouth every twelve hours sulfamethoxazole-trimethoprim (Bactrim DS) 800-160 MG tablet Take 2 tablets by mouth every 12 hours for 8 doses. 16 tablet 06/30/2024 12:18 PM EDT 06/30/2024 07/04/2024 Active Start: 10-01-2020 sulfamethoxazo le-trimethoprim (BACTRIM DS;SEPTRA DS) 800-160 MG per tablet 1 tablet Start: 07-25-2020 take 1 tablet by boris three times weekly sulfamethoxazole-trimethoprim (BACTRIM DS;SEPTRA DS) 800-160 MG per tablet Take 1 tablet by mouth three times a week 30 tablet 0 07/25/2020 Active Start: 07-25-2020 sulfamethoxazo le-trimethoprim (BACTRIM DS;SEPTRA DS) 800-160 MG per tablet 1 tablet tamsulosin hydrochloride 0.4 mg oral capsule (20 sources) alpha-Adrenergic Camelia Start: 05-26-2024 End: 06-30-2024 take 1 capsule by mouth once daily tamsulosin (Flomax) 0.4 MG 24 hr capsule Indications: Benign prostatic hyperplasia with post-void dribbling TAKE 1 CAPSULE BY MOUTH ONCE DAILY 90 capsule 3 05/26/2024 Active Start: 08-10-2023 End: 08-20-2023 tamsulosin (Flomax) 0.4 MG 2 4 hr capsule Indications: Benign prostatic hyperplasia with post-void dribbling Flomax 0.4mg take 2 pills daily, 30 minutes after meal 180 capsule 3 08/10/2023 08/20/2023 Discontinued (Stop taking at discharge) Start: 02-28-2021 End: 10-02-2023 take 1 capsule by mouth once daily tamsulosin (Flomax) 0.4 MG 24 hr capsule Indications: Benign prostatic hyperplasia with post-void dribbling Take 1 capsule (0.4 mg) by mouth daily. 90 capsule 3 08/03/2023 Active Start: 09-29-2020 tamsulosin (FL OMAX) capsule 0.4 mg Start: 09-11-2020 take 0.4 mg by mouth once felicitas y 0.4 mg, Oral, DAILY, First dose on Thu09/11/20 at 1841 Do not crush or break. Start: 08-08-2020 End: 08-22-2020 take 1 capsule by mouth once daily tamsulosin (FLOMAX) 0.4 MG capsule Indications: Bladder wall thickening , Decreased urine stream Take 1 capsule by mouth daily 30 capsule 5 08/08/2020 Active traZODone hydrochloride 50 mg oral tablet (1 source) Serotonin Reuptake Inhibitor Start: 08-22-2020 traZODone (DESYREL) tablet 50 mg trospium chloride 20 mg oral tablet (1 source) Cholinergic Muscarinic Antagonist Start: 12-18-2021 trospium (SANCTURA) tablet 20 mg VITAMIN D, CHOLECALCIFEROL, PO (20 sources) VITAMIN D, CHOLECALCIFEROL, PO Take 6,000 Int'l Units by mouth daily 0 Suspended VITAMIN D, TWAN CALCIFEROL, PO Take 6,000 Int'l Units by mouth daily 0 Active Completed/Discontinued Medications Medication Drug Class(es) Dates Sig (Normalized) Sig (Original) [id number] 200 actuat albuterol 0.09 mg/actuat metered dose inhaler (20 sources) beta2-Adrenergic Agonist Start: 06-23-2024 End: 06-30-2024 Start: 05-27-2024 End: 05-28-2024 Start: 10-01-2023 End: 10-02-2023 Start: 09-23-2023 End: 09-25-2023 take 2 puff(s) by inhalation every six hours as needed 2 puff, Inhalation, Every 6 hours PRN, shortness of breath, Starting on Thu09/23/23 at 1407, Phase II/On Unit Start: 03-19-2022 take 2 puff(s) by in halation every six hours as needed Ventolin HFA 108 (90 Base) MCG/ACT inhaler Inhale 2 puffs every 6 hours as needed. 03/19/2022 Active Start: 12-04-2021 albuterol (PRO VENTIL) nebulizer solution 2.5 mg Start: 12-03-2021 End: 12-04-2021 2.5 mg, Nebulization, EVERY 4 HOURS WHILE AWAKE, First dose on Thu12/03/21 at 1600, Until Discontinued Initiate RT Bronchodilator Protocol: Yes Post-op Start: 05-21-2021 VENTOLIN HFA 1 08 (90 Base) MCG/ACT inhaler Indications: Mucopurulent chronic bronchitis (HCC) , Shortness of breath INHALE 2 PUFFS BY MOUTH AND INTO THE LUNGS FOUR TIMES A DAY IF NEEDED FOR WHEEZING. USE EVERY 4 HOURS IF NEEDED. 3 each 1 05/21/2021 Active Start: 12-13-2020 End: 09-15-2021 albuterol sulfate HFA (COLETTE CARMEN HFA) 108 (90 Base) MCG/ACT inhaler Indications: Mucopurulent chronic bronchitis (HCC) , Shortness of breath Inhale 2 puffs into the lungs 4 times daily as needed for Wheezing Use every Four hours for the next 2 days then May switch to every four hours as needed. 3 each 1 03/19/2021 09/15/2021 Active Start: 11-08-2020 albuterol sulf ate HFA 108 (90 Base) MCG/ACT inhaler 4 puff Start: 10-01-2020 albuterol (PRO VENTIL) nebulizer solution 2.5 mg Start: 09-11-2020 albuterol (PRO VENTIL) nebulizer solution 2.5 mg Start: 07-23-2020 albuterol (PRO VENTIL) nebulizer solution 2.5 mg Start: 06-09-2020 2.5 mg, Nebuli zation, EVERY 4 HOURS PRN, Wheezing, Shortness of Breath, Starting 06/09/20 at 0435 Start: 04-21-2020 albuterol sulf ate HFA (VENTOLIN HFA) 108 (90 Base) MCG/ACT inhaler Inhale 2 puffs into the lungs 4 times daily as needed for Wheezing Use every Four hours for the next 2 days then May switch to every four hours as needed. 2 Inhaler 0 04/21/2020 Active Start: 04-21-2020 albuterol sulf ate HFA (VENTOLIN HFA) 108 (90 Base) MCG/ACT inhaler Inhale 2 puffs into the lungs 4 times daily as needed for Wheezing Use every Four hours for the next 2 days then May switch to every four hours as needed. 2 Inhaler 0 04/21/2020 Active Start: 04-21-2020 albuterol (PRO VENTIL) nebulizer solution 5 mg End: 10-19-2020 take 2 puff(s) by mouth four times daily as needed albuterol sulfate HFA (VENTOLIN HFA) 108 (90 Base) MCG/ACT inhaler Take 2 puffs by mouth 4 times daily as needed 0 10/19/2020 Discontinued (LIST CLEANUP) ALPRAZolam 1 mg oral tablet (20 sources) Benzodiazepine Start: 06-23-2024 End: 06-30-2024 take 1 mg by mouth once daily as needed for anxiety 1 mg, Oral, Nightly PRN, anxiety, Starting on Monica 06/23/24 at 2236 Start: 05-27-2024 End: 09-30-2024 take 1 mg by mouth once daily as needed for anxiety 1 mg, Oral, Nightly PRN, anxiety, Starting on 05/27/24 at 2307 Start: 05-27-2024 End: 05-27-2024 take 0.25 mg by mouth once as needed for anxiety 0.25 mg, Oral, Once PRN, anxiety, Starting on Thu05/27/24 at 1127, For 1 dose, Preprocedure, Please do not administer prior to obtaining consent and/or history and physical. Start: 08-21-2023 ALPRAZolam (Xa nax) tablet 0.25 mg Start: 12-03-2021 End: 12-03-2021 ALPRAZolam (NIRAVAM) dissolv able tablet 0.25 mg Start: 12-02-2021 End: 10-01-2023 take 1 tablet by mouth every twenty-four hours as needed ALPRAZolam (Xanax) 1 MG tablet Take 1 mg by mouth every 24 hours as needed. 12/02/2021 10/01/2023 Discontinued (Therapy completed) Start: 12-02-2021 End: 12-05-2021 take 1 tablet by mouth twice daily as needed for sleep ALPRAZolam (XANAX) 1 MG tablet Indications: Anxiety Take 1 tablet by mouth 2 times daily as needed for Sleep for up to 2 days. 3 tablet 0 12/02/2021 12/05/2021 Discontinued (Stop Taking at Discharge) Start: 11-19-2020 ALPRAZolam (NI RAVAM) dissolvable tablet 0.25 mg Start: 10-26-2020 ALPRAZolam (NI RAVAM) dissolvable tablet 0.25 mg aluminum hydroxide 40 mg/ml / magnesium hydroxide 40 mg/ml / simethicone 4 mg/ml oral suspension (3 sources) Start: 03-04-2023 End: 03-04-2023 aluminum & magnesium hydroxide-simethicone (Mylanta) 200-200-20 MG/5ML oral suspension 20 mL Start: 02-27-2023 End: 02-27-2023 aluminum & magnesium hydroxi de-simethicone (Mylanta) 200-200-20 MG/5ML oral suspension 10 mL aspirin 81 mg / calcium carbonate 777 mg oral tablet (1 source) Platelet Aggregation Inhibitor, Nonsteroidal Anti-inflammatory Drug aspirin-calcium carbonate 81 mg-300 mg calcium(777 mg) tab Take 81 mg by mouth. 0 Active Comment on above: Take 81 mg by mouth. atorvastatin 80 mg oral tablet (20 sources) HMG-CoA Reductase Inhibitor Start: End: take 80 mg by mouth once daily 80 mg, Oral, Daily, First dose on Thu08/18/23 at 0900, Indications: Hyperlipidemia Start: 03-02-2022 End: 06-30-2024 take 1 tablet by mouth once daily atorvastatin (Lipitor) 80 MG tablet Indications: Hyperlipidemia Take 80 mg by mouth Nightly. 03/02/2022 Active Start: 07-24-2020 take 1 tablet by boris th once daily atorvastatin (LIPITOR) 80 MG tablet Take 1 tablet by mouth nightly 30 tablet 3 07/25/2020 Active Start: 07-23-2020 End: 07-24-2020 take 40 mg by mouth once daily 40 mg, Oral, NIGHTLY, F irst dose on 07/23/20 at 2145 If patient with no documented allergies or prior reported intolerance to Statins azithromycin (ZITHROMAX) 500 mg in dextrose 5 % 250 mL IVPB (add-vantage) (1 source) Start: 04-29-2020 End: 04-29-2020 azithromycin (ZITHROMAX) 500 mg in dextrose 5 % 250 mL IVPB (add-vantage) bacitracin 0.5 unt/mg topical ointment (20 sources) Start: 08-07-2022 End: 08-20-2023 bacitracin 500 UNIT/GM ointment APPLY TOPICALLY TO AFFECTED AREAS twice a day 0 08/07/2022 08/20/2023 Discontinued (Stop taking at discharge) baclofen 10 mg oral tablet (20 sources) gamma-Aminobut yric Acid-ergic Agonist Start: 03-19-2022 End: 08-03-2024 take 1 tablet by mouth twice daily baclofen (Lioresal) 10 MG tablet Take 10 mg by mouth 2 times daily. 03/19/2022 08/03/2024 Discontinued (Duplicate order) Start: 12-18-2021 take 10 mg by mouth three times daily 10 mg, Oral, 3 TIMES DAILY, First dose on Thu12/18/21 at 0900, Until Discontinued Start: 09-29-2020 baclofen (MOODY ESAL) tablet 10 mg Start: 09-11-2020 take 5 mg by mouth t hree times daily as needed for pain 5 mg, Oral, 3 TIMES DAILY PRN, back pain, Starting on Thu09/11/20 at 1840 Start: 08-22-2020 End: 08-22-2020 baclofen (LIORESAL) tablet 1 0 mg Start: 08-22-2020 End: 08-23-2020 take 5 mg by mouth three times daily as needed for pain 5 mg, Oral, 3 TIMES DAILY PRN, back pain, Starting Thu08/22/20 at 1725 End: 10-04-2020 take 5 mg by mouth three times daily as needed for pain baclofen (LIORESAL) 10 MG tablet Take 5 mg by mouth 3 times daily as needed (back pain) 0 10/04/2020 Discontinued (LIST CLEANUP) betamethasone 3 mg/ml / betamethasone acetate 3 mg/ml injectable suspension (4 sources) Corticosteroid Start: 12-08-2024 End: 12-08-2024 betamethasone acetate-betamethasone sodium phosphate (Celestone) injection 6 mg Start: 12-08-2024 End: 12-08-2024 6 mg, Intra-artICUlar, Once, On Monica 12/08/24 at 1515, For 1 dose Start: 12-08-2024 End: 12-08-2024 betamethasone acetate-betame thasone sodium phosphate (Celestone) injection 6 mg Start: 12-08-2024 End: 12-08-2024 6 mg, Intra-artICUlar, Once, On Monica 12/08/24 at 1515, For 1 dose bisacodyl 5 mg delayed release oral tablet (5 sources) Stimulant Laxative Start: 05-27-2024 End: 05-28-2024 take 1 tablet by mouth every twenty-four hours as needed for constipation Start: 10-01-2023 End: 10-02-2023 take 10 mg rectal route once daily 10 mg, Rectal, Daily, First dose on Monica 10/01/23 at 1715 Start: 06-10-2020 End: 06-10-2020 bisacodyl (DULCOLAX) EC tabl et 20 mg bumetanide 1 mg oral tablet (20 sources) Loop Diuretic Start: 09-23-2023 End: 09-25-2023 take 1 mg by mouth twice daily 1 mg, Oral, 2 times daily, First dose on Thu09/23/23 at 1415, Phase II/On Unit Start: 03-02-2022 End: 05-13-2024 take 1 tablet by mouth in the morning bumetanide (Bumex) 1 MG tablet Take 1 mg by mouth in the morning and 1 mg before bedtime. 03/02/2022 05/13/2024 Discontinued (Therapy completed) Start: 07-25-2020 End: 08-26-2020 take 2 tablets by mouth twice daily bumetanide (BUMEX) 1 MG tablet Take 2 tablets by mouth 2 times daily 30 tablet 3 07/25/2020 08/26/2020 Discontinued (Stop Taking at Discharge) Start: 07-24-2020 bumetanide (BU KEILA) tablet 1 mg Start: 07-23-2020 End: 07-24-2020 take 2 mg by mouth twice daily 2 mg, Oral, 2 TIMES ZOE LY, First dose on Thu07/23/20 at 2145 busPIRone hydrochloride 10 mg oral tablet (20 sources) Start: 09-23-2023 End: 09-25-2023 take 10 mg by mouth twice daily 10 mg, Oral, 2 times daily, First dose on Thu09/23/23 at 1415, Phase II/On Unit Start: 01-26-2023 End: 06-30-2024 take 1 tablet by mouth twice daily busPIRone (Buspar) 10 MG tablet Take 10 mg by mouth 2 times daily. 01/26/2023 Active calcium chloride 0.0014 meq/ml / potassium chloride 0.004 meq/ml / sodium chloride 0.103 meq/ml / sodium lactate 0.028 meq/ml injectable solution (17 sources) Start: 05-27-2024 End: 05-27-2024 take 50 mL intravenously every hour 50 mL/hr, IntraVENous, Continuous, Starting on Thu05/27/24 at 1130, Preprocedure, Upon admission to sameday - please start iv if patient does not have iv access. Use 500ml NS for patients on dialysis. Start: 09-23-2023 End: 09-23-2023 lactated Ringer's (LR) infus ion Start: 09-16-2023 End: 09-16-2023 lactated Ringer's (LR) infus ion Start: 02-28-2023 End: 03-02-2023 take 100 mL intravenously every hour 100 mL/hr, IntraV ENous, Continuous, Starting on 02/28/23 at 0415 Start: 02-21-2023 End: 02-21-2023 lactated ringers bolus 1,000 mL Start: 12-18-2021 End: 12-19-2021 IntraVENous, at 100 mL/hr, CONTINUOUS, Starting on Thu12/18/21 at 0200 Start: 12-17-2021 End: 12-18-2021 lactated ringers bolus Start: 12-03-2021 End: 12-03-2021 lactated ringers infusion Start: 11-19-2020 lactated ringe rs infusion Start: 10-26-2020 lactated ringe rs infusion Start: 08-25-2020 End: 08-25-2020 lactated ringers bolus Start: 06-09-2020 End: 06-09-2020 Intravenous, at 100 mL/hr, CONTINUOUS, Starting 06/09/20 at 0000 calcium citrate 1040 mg oral tablet (20 sources) Start: 03-24-2022 End: 10-01-2023 calcium citrate 250 MG tablet Indications: Deficiency of multiple nutrient elements Take 2 tablets (500 mg) by mouth in the morning and 2 tablets (500 mg) at noon and 2 tablets (500 mg) before bedtime. Take 2 tablets by mouth three times daily.. 180 tablet 3 03/24/2022 10/01/2023 Discontinued (Therapy completed) 100 ml calcium gluconate 20 mg/ml injection (2 sources) Start: 10-02-2023 End: 10-02-2023 2,000 mg, IntraVENous, at 50 mL/hr, Administer over 2 Hours, Once, On Thu10/02/23 at 0845, For 1 dose, premix bag ceFAZolin (Ancef) 1,000 mg in sodium chloride 0.9 % 50 mL IVPB (1 source) Start: 09-16-2023 End: 09-16-2023 ceFAZolin (Ancef) 1,000 mg in sodium chloride 0.9 % 50 mL IVPB ceFAZolin (Ancef) 2,000 mg in sodium chloride 0.9 % 100 mL IVPB (2 sources) Start: 05-27-2024 End: 05-28-2024 take 2000 mg intravenously every eight hours 2,000 mg, IntraVENous, at 200 mL/hr, Administer over 30 Minutes, Every 8 hours, First dose on Thu05/27/24 at 2200, For 2 doses, Phase II/On Unit, Mini-Bag Plus bag, Suspected Indication (Select all that apply): Surgical Prophylaxis ceFAZolin (ANCEF) 3,000 mg in dextrose 5 % 100 mL IVPB (3 sources) Start: 12-03-2021 End: 12-03-2021 ceFAZolin (ANCEF) 3,000 mg in dextrose 5 % 100 mL IVPB Start: 11-19-2020 End: 11-19-2020 ceFAZolin (ANCEF) 3,000 mg i n dextrose 5 % 100 mL IVPB Start: 10-26-2020 End: 10-26-2020 ceFAZolin (ANCEF) 3,000 mg i n dextrose 5 % 100 mL IVPB cefTRIAXone (ROCEPHIN) 1 g I VPB in NS 50ml minibag (1 source) Start: 04-29-2020 End: 04-29-2020 cefTRIAXone (ROCEPHIN) 1 g I VPB in NS 50ml minibag cefTRIAXone (Rocephin) 1,000 mg in sodium chloride 0.9 % 50 mL IVPB Mini-Bag Plus (8 sources) Start: 08-21-2023 End: 08-21-2023 cefTRIAXone (Rocephin) 1,000 mg in sodium chloride 0.9 % 50 mL IVPB Mini-Bag Plus Start: 08-19-2023 End: 08-19-2023 cefTRIAXone (Rocephin) 1,000 mg in sodium chloride 0.9 % 50 mL IVPB Mini-Bag Plus Start: 08-18-2023 End: 08-19-2023 cefTRIAXone (Rocephin) 1,000 mg in sodium chloride 0.9 % 50 mL IVPB Mini-Bag Plus Start: 08-17-2023 End: 08-17-2023 cefTRIAXone (Rocephin) 1,000 mg in sodium chloride 0.9 % 50 mL IVPB Mini-Bag Plus cephalexin 500 mg oral capsule (20 sources) Cephalosporin Antibacterial Start: 09-16-2023 End: 10-01-2023 cephalexin (Keflex) 500 MG capsule Keflex 500mg take one pill twice daily 6 capsule 09/16/2023 10/01/2023 Discontinued (Therapy completed) Start: 08-17-2023 End: 08-24-2023 take 1 capsule by mouth three times daily cephalexin (Keflex) 500 MG capsule Take 1 capsule (500 mg) by mouth 3 times daily for 7 days. 21 capsule 0 08/17/2023 08/20/2023 Discontinued (Stop taking at discharge) chlorhexidine gluconate 40 mg/ml medicated liquid soap (1 source) Start: 12-02-2021 End: 12-05-2021 chlorhexidine (HIBICLENS) 4 % external liquid Shower the morning of surgery using hibiclens Apply Hibiclens to skin - allow to sit for 5 min - rinse - repeats 1 each 0 12/02/2021 12/05/2021 Discontinued (Stop Taking at Discharge) cholestyramine resin 4000 mg powder for oral suspension (20 sources) Bile Acid Sequestrant Start: 09-24-2023 End: 09-25-2023 4 g (1 packet), Oral, Every 24 hours, First dose on Monica 09/24/23 at 0000, Phase II/On Unit Start: 08-18-2023 End: 10-01-2023 4 g (1 packet), Oral, Daily, First dose on Monica 10/01/23 at 1800 Start: 02-28-2023 End: 03-01-2024 take 1 dose by mouth twice daily cholestyramine (Questran) 4 g packet Take 1 packet (4 g) by mouth 2 times daily. 60 packet 11 03/02/2023 06/22/2023 Discontinued (Therapy completed) clotrimazole 10 mg/ml topical cream (1 source) Azole Antifungal Start: 10-21-2021 End: 10-21-2021 clotrimazole (LOTRIMIN) 1 % cream collagenase 0.25 unt/mg topical ointment (2 sources) Collagen-specific Enzyme Start: 06-25-2024 End: 06-30-2024 Topical, Daily, First dose on Thu06/25/24 at 0900, Apply to yellow tissues to right hip wound , after cleansing with hibiclens then apply alginate, cover with DSD , tape. Continuous Blood Gluc Sensor (FreeStyle Alexandra 2 Sensor) misc (20 sources) Start: 09-18-2022 End: 10-01-2023 Continuous Blood Gluc Sensor (FreeStyle Alexandra 2 Sensor) misc USE DIRECTED; CHANGE SENSOR EVERY 14 DAYS 09/18/2022 10/01/2023 Discontinued (Therapy completed) Start: 09-18-2022 Continuous Blo od Gluc Sensor (FreeStyle Alexandra 2 Sensor) misc USE DIRECTED; CHANGE SENSOR EVERY 14 DAYS 09/18/2022 Active Start: 09-18-2022 Continuous Blo od Gluc Sensor (FreeStyle Alexandra 2 Sensor) misc USE DIRECTED; CHANGE SENSOR EVERY 14 DAYS 0 09/18/2022 Suspended Start: 09-18-2022 Continuous Blo od Gluc Sensor (FreeStyle Alexandra 2 Sensor) misc USE DIRECTED; CHANGE SENSOR EVERY 14 DAYS 0 09/18/2022 Active DAPTOmycin (Cubicin) 750 mg in sodium chloride 0.9 % 50 mL IVPB (2 sources) Start: 06-24-2024 End: 06-29-2024 750 mg, IntraVENous, at 100 mL/hr, Administer over 30 Minutes, Every 24 hours, First dose on Thu06/24/24 at 1000, Incompatible with dextrose containing solutions. Use Adjusted Body Weight to dose daptomycin if BMI is 30 or greater., Does patient have decreased suseptibility to vancomycin such as S. aureus ABDIEL >= 2 (except for UTI, ABDIEL of 2 is OK due to renal elimination), S. epidermidis ABDIEL >= 4, or Enterococcus ABDIEL >= 4? Yes, Suspected Indication (Select all that apply): Other, Intra-Abdominal Infection, Other Abx Indication: likely mrsa and don't wish to risk vanco side effects 1 ml dexamethasone phosphate 10 mg/ml injection (7 sources) Corticosteroid Start: 05-27-2024 End: 05-28-2024 take 8 mg intravenously every six hours 8 mg, IntraVENous, Every 6 hours, First dose on Thu05/27/24 at 2200, For 2 doses, Phase II/On Unit Start: 09-16-2023 End: 09-16-2023 dexAMETHasone (PF) (Decadron ) injection Start: 07-03-2022 End: 07-03-2022 dexAMETHasone (PF) (Decadron ) injection 10 mg Start: 08-03-2020 End: 08-03-2020 dexamethasone (DECADRON) tab let 4 mg Start: 04-30-2020 End: 05-10-2020 take 6 mg by mouth once daily 6 mg, Oral, DAILY, First dose on Thu04/30/20 at 0800, For 10 doses Start: 04-29-2020 End: 04-29-2020 dexamethasone (DECADRON) inj ection 6 mg dexmedeTOMIDine HCl in NaCl (Precedex) injection (1 source) Start: 09-16-2023 End: 09-16-2023 dexmedeTOMIDine HCl in NaCl (Precedex) injection diatrizoate meglumine-sodium (Gastrografin) 66-10 % solution 15 mL (2 sources) Start: 02-15-2023 End: 02-15-2023 diatrizoate meglumine-sodium (Gastrografin) 66-10 % solution 15 mL diatrizoate meglumine-sodium (Gastrografin) 66-10 % solution 30 mL (5 sources) Start: 04-10-2023 End: 04-10-2023 diatrizoate meglumine-sodium (Gastrografin) 66-10 % solution 30 mL Start: 02-28-2023 End: 02-28-2023 diatrizoate meglumine-sodium (Gastrografin) 66-10 % solution 30 mL Start: 02-21-2023 End: 02-21-2023 diatrizoate meglumine-sodium (Gastrografin) 66-10 % solution 30 mL diclofenac sodium 0.01 mg/mg topical gel (20 sources) Nonsteroidal Anti-inflammatory Drug Start: 11-09-2021 End: 08-20-2023 Diclofenac Sodium (Voltaren) 1 % gel apply 2 grams to affected area four times a day 0 11/09/2021 08/20/2023 Discontinued (Stop taking at discharge) Start: 11-09-2021 diclofenac sod ium (VOLTAREN) 1 % GEL daily as needed 0 11/09/2021 Active dicyclomine hydrochloride 10 mg oral capsule (20 sources) Anticholinergic Start: 12-19-2021 End: 09-30-2024 dicyclomine (Bentyl) 10 MG capsule Take 10 mg by mouth in the morning and 10 mg at noon and 10 mg in the evening and 10 mg before bedtime. 12/19/2021 09/30/2024 Discontinued (Therapy completed) Start: 06-10-2020 dicyclomine (B ENTYL) capsule 20 mg Start: 06-05-2020 End: 12-19-2021 take 10 mg by mouth three times daily before mealtime 10 mg, Oral, 3 TIMES DAILY BEFORE MEALS, First dose on Thu12/18/21 at 0700, Until Discontinued 1 ml diphenhydrAMINE hydrochloride 50 mg/ml cartridge (4 sources) Histamine-1 Receptor Antagonist Start: 09-16-2023 End: 09-16-2023 diphenhydrAMINE (BENADryl) injection 12.5 mg Start: 11-19-2020 End: 11-19-2020 diphenhydrAMINE (BENADRYL) i njection 12.5 mg Start: 10-26-2020 End: 10-26-2020 diphenhydrAMINE (BENADRYL) i njection 12.5 mg diphenhydrAMINE (BENADryl) tablet/capsule 25 mg (2 sources) Start: 05-27-2024 End: 05-28-2024 take 1 tablet by mouth every six hours as needed diphenhydrAMINE (BENADryl) tablet/capsule 25 mg docusate sodium 100 mg oral capsule (13 sources) Start: 05-27-2024 End: 07-10-2024 take 100 mg by mouth twice daily 100 mg, Oral, 2 times daily, First dose on Thu06/23/24 at 2100, Do not crush or break. Start: 07-25-2020 docusate sodiu m (COLACE) capsule 100 mg Start: 06-05-2020 docusate sodiu m (COLACE) capsule 100 mg docusate sodium 50 mg / sennosides, fpc 8.6 mg oral tablet (20 sources) Start: 10-01-2023 End: 10-31-2023 take 1 tablet by mouth twice daily senna-docusate sodium (Senokot-S) 8.6-50 MG tablet Take 1 tablet by mouth 2 times daily. 30 tablet 10/01/2023 10/31/2023 Active Start: 09-29-2023 End: 10-29-2023 take 2 tablets by mouth once daily 2 tablet, Oral, Daily, First dose on Thu10/01/23 at 1505 Start: 12-18-2021 take 1 tablet by [facility] once daily as needed 1 tablet, Oral, DAILY PRN, Starting on Thu12/18/21 at 0139, Until Discontinued, Constipation Start: 04-30-2021 End: 08-20-2023 senna-docusate sodium (Senok ot-S) 8.6-50 MG tablet 1-2 tab(s) 0 04/30/2021 08/20/2023 Discontinued (Stop taking at discharge) Start: 09-29-2020 sennosides-doc usate sodium (SENOKOT-S) 8.6-50 MG tablet 2 tablet Start: 06-05-2020 sennosides-doc usate sodium (SENOKOT-S) 8.6-50 MG tablet 2 tablet 0.4 ml enoxaparin sodium 100 mg/ml prefilled syringe (20 sources) Low Molecular Weight Heparin Start: 06-23-2024 End: 06-30-2024 inject 40 mg by subcutaneous injection every twenty-four hours 40 mg, SubCUTAneous, Every 24 hours scheduled (Daily), First dose on Thu06/23/24 at 1915, Indication of Use: Prophylaxis-DVT/PE, Indications: Prophylaxis of Venous Thromboembolism Start: 10-01-2023 End: 10-02-2023 inject 40 mg by subcutaneous injection every twenty-four hours 40 mg, SubCUTAneous, Every 24 hours scheduled (Daily), First dose on Thu10/01/23 at 1505, Indication of Use: Prophylaxis-DVT/PE, Indications: Prophylaxis of Venous Thromboembolism Start: 09-25-2023 End: 09-25-2023 enoxaparin (Lovenox) syringe 40 mg Start: 09-23-2023 End: 09-23-2023 enoxaparin (Lovenox) syringe 30 mg Start: 02-28-2023 End: 03-03-2023 inject 40 mg by subcutaneous injection every twenty-four hours 40 mg, SubCUTAneous, Every 24 hours, First dose on 02/28/23 at 0900, Indication of Use: Prophylaxis-DVT/PE, Indications: Prophylaxis of Venous Thromboembolism Start: 12-18-2021 inject 40 mg by subc utaneous injection twice daily 40 mg, SubCUTAneous, 2 TIMES DAILY, First dose on Thu12/18/21 at 0200, Until Discontinued Indication of Use: Prophylaxis-DVT/PE Pharmacy to dose if renal insufficiency present. Start: 11-18-2021 End: 12-02-2021 inject 1 dose by subcutaneous injection twice daily 40 mg, SubCUTAneous, EVERY 12 HOURS SCHEDULED (2 times per day), First dose on Thu12/03/21 at 2200, Until Discontinued Indication of Use: Prophylaxis-DVT/PE 40mg every 12 hours, subcutaneous, if 300 - 400 lbs. Post-op Start: 09-29-2020 enoxaparin (LO VENOX) injection 40 mg Start: 07-24-2020 inject 40 mg by subc utaneous injection once daily 40 mg, Subcutaneous, DAILY, First dose on 07/24/20 at 0900 Start: 06-09-2020 inject 40 mg by subc utaneous injection once daily 40 mg, Subcutaneous, DAILY, First dose on 06/09/20 at 0900 Start: 04-29-2020 inject 30 mg by subc utaneous injection twice daily 30 mg, Subcutaneous, 2 TIMES DAILY, First dose on Thu04/29/20 at 2000 enoxaparin (LOVE NOX) 300 MG/3ML injection Inject 40 mg into the skin 2 times daily 0 Suspended EPINEPHrine 0.01 mg/ml / lidocaine hydrochloride 10 mg/ml injectable solution (2 sources) Antiarrhythmic, alpha-Adrenergic Agonist, beta-Adrenergic Agonist, Catecholamine, Amide Local Anesthetic Start: 06-18-2024 End: 06-18-2024 10 mL, Infiltration, Once, On 06/18/24 at 1845, For 1 dose ergocalciferol 1.25 mg oral capsule (20 sources) Provitamin D2 Compound Start: 07-17-2021 End: 06-22-2023 take 1 capsule by mouth every week ergocalciferol (Vitamin D2) 1.25 MG (12858 UT) capsule take 1 capsule by mouth every week for 8 doses 0 07/17/2021 06/22/2023 Discontinued (Therapy completed) ertapenem (INVanz) 1,000 mg in sodium chloride 0.9 % 50 mL IVPB Mini-Bag Plus (2 sources) Start: 06-26-2024 End: 06-29-2024 1,000 mg, IntraVENous, at 100 mL/hr, Administer over 30 Minutes, Every 24 hours, First dose on 06/26/24 at 1000, Mini-Bag Plus bag, Suspected Indication (Select all that apply): Surgical Site Infection 10 ml esmolol hydrochloride 10 mg/ml injection (1 source) beta-Adrenergic Camelia Start: 09-16-2023 End: 09-16-2023 esmolol (Brevibloc) injection famotidine 20 mg oral tablet (20 sources) Histamine-2 Receptor Antagonist Start: 05-27-2024 End: 05-28-2024 take 20 mg by mouth twice daily 20 mg, Oral, 2 times daily, First dose on Thu05/27/24 at 2100, Phase II/On Unit Start: 06-15-2021 take 1 tablet by boris twice daily famotidine (PEPCID) 20 MG tablet Take 1 tablet by mouth 2 times daily 60 tablet 0 06/15/2021 Active Start: 02-09-2021 End: 02-23-2021 take 1 tablet by mouth twice daily famotidine (PEPCID) 20 MG tablet Take 1 tablet by mouth 2 times daily for 14 days 28 tablet 0 02/09/2021 Active Start: 11-19-2020 End: 11-19-2020 famotidine (PEPCID) tablet 2 0 mg Start: 10-26-2020 End: 10-26-2020 famotidine (PEPCID) tablet 2 0 mg End: 06-22-2023 famotidine (Pepcid) 20 MG ta blet Indications: Gastroesophageal Reflux Disease every 12 hours. 0 06/22/2023 Discontinued (Therapy completed) famotidine (Pepcid) 20 mg in sodium chloride (PF) 0.9 % 10 mL injection (2 sources) Start: 03-04-2023 End: 03-04-2023 famotidine (Pepcid) 20 mg in sodium chloride (PF) 0.9 % 10 mL injection famotidine (PEPCID) 20 mg in sodium chloride (PF) 10 mL injection (1 source) Start: 12-03-2021 End: 12-04-2021 famotidine (PEPCID) 20 mg in sodium chloride (PF) 10 mL injection fluconazole 100 mg oral tablet (12 sources) Azole Antifungal Start: 09-22-2023 End: 10-01-2023 take 1 tablet by mouth once daily fluconazole (Diflucan) 100 MG tablet Take 1 tablet (100 mg) by mouth daily for 7 days. 7 tablet 09/22/2023 10/01/2023 Discontinued (Therapy completed) fluticasone propionate 0.05 mg/actuat metered dose nasal spray (20 sources) Corticosteroid Start: 03-12-2021 End: 06-30-2024 take 1 spray(s) nasal route once daily fluticasone (Flonase) 50 MCG/ACT nasal spray Administer 1 spray into each nostril daily. 03/12/2021 06/30/2024 Discontinued (Stop taking at discharge) Start: 03-12-2021 fluticasone (F lonase) 50 MCG/ACT nasal spray Every 24 hours. 03/12/2021 Active 60 actuat fluticasone propionate 0.25 mg/actuat / salmeterol 0.05 mg/actuat dry powder inhaler (20 sources) Corticosteroid, beta2-Adrenergic Agonist Start: 04-25-2022 End: 10-01-2023 take 1 puff(s) by inhalation twice daily Advair Diskus 250-50 MCG/ACT aerosol powder Indications: Obstructive sleep apnea syndrome INHALE 1 PUFF INTO THE LUNGS TWICE DAILY 1 each 10 04/25/2022 10/01/2023 Discontinued (Therapy completed) Start: 03-10-2022 End: 04-25-2022 take 1 puff(s) by inhalation in the morning Advair Diskus 250-50 MCG/ACT aerosol powder Inhale 1 puff in the morning and 1 puff before bedtime. 0 03/10/2022 04/25/2022 Discontinued Start: 03-25-2021 End: 12-19-2021 take 1 puff(s) by inhalation twice daily ADVAIR DISKUS 250-50 MCG/ACT AEPB diskus inhaler Indications: Mucopurulent chronic bronchitis (HCC) , Shortness of breath Inhale 1 puff into the lungs 2 times daily 3 each 1 09/20/2021 Active Start: 03-19-2021 take 1 puff(s) by in halation every twelve hours fluticasone-salmeterol (ADVAIR DISKUS) 250-50 MCG/DOSE AEPB Indications: Mucopurulent chronic bronchitis (HCC) , Shortness of breath Inhale 1 puff into the lungs every 12 hours 60 each 3 03/19/2021 Active Start: 12-13-2020 take 1 puff(s) by in halation every twelve hours fluticasone-salmeterol (ADVAIR DISKUS) 250-50 MCG/DOSE AEPB Indications: Shortness of breath , Mucopurulent chronic bronchitis (HCC) Inhale 1 puff into the lungs every 12 hours 60 each 3 12/13/2020 Active 60 actuat formoterol fumarate 0.005 mg/actuat / mometasone furoate 0.2 mg/actuat metered dose inhaler (12 sources) Corticosteroid, beta2-Adrenergic Agonist Start: 06-23-2024 End: 06-30-2024 take 2 puff(s) by mouth twice daily 2 puff, Inhalation, 2 times daily, First dose on Thu06/23/24 at 1999, Rinse mouth with water after use to reduce aftertaste and incidence of candidiasis. Do not swallow. Start: 05-27-2024 End: 05-28-2024 take 2 puff(s) by mouth twice daily 2 puff, Inhalation, 2 times daily, First dose on Thu05/27/24 at 1999, Rinse mouth with water after use to reduce aftertaste and incidence of candidiasis. Do not swallow. Start: 10-01-2023 End: 10-02-2023 take 2 puff(s) by mouth twice daily 2 puff, Inhalation, 2 times daily, First dose on Monica 10/01/23 at 2000, Rinse mouth with water after use to reduce aftertaste and incidence of candidiasis. Do not swallow. Start: 09-23-2023 End: 09-25-2023 take 2 puff(s) by mouth twice daily 2 puff, Inhalation, 2 times daily, First dose on Thu09/23/23 at 2000, Phase II/On Unit, Rinse mouth with water after use to reduce aftertaste and incidence of candidiasis. Do not swallow. Start: 08-18-2023 End: 08-20-2023 take 2 puff(s) by mouth twice daily 2 puff, Inhalation, 2 times daily, First dose on Thu08/18/23 at 0800, Rinse mouth with water after use to reduce aftertaste and incidence of candidiasis. Do not swallow. Start: 12-18-2021 take 2 puff(s) by mo [facility] twice daily 2 puff, Inhalation, 2 TIMES DAILY, First dose on Thu12/18/21 at 0800, Until Discontinued Rinse mouth after each use. Substituted for Fluticasone-Salmeterol (ADVAIR DPI) Start: 12-03-2021 take 2 puff(s) by in halation twice daily 2 puff, Inhalation, 2 TIMES DAILY, First dose on Thu12/03/21 at 1315, Until Discontinued Substituted for Fluticasone-Salmeterol (ADVAIR DPI) gabapentin 300 mg oral capsule (20 sources) Anti-epileptic Agent Start: 06-23-2024 End: 06-30-2024 take 600 mg by mouth three times daily 600 mg, Oral, 3 times daily, First dose on Thu06/23/24 at 2100 Start: 05-27-2024 End: 05-28-2024 take 600 mg by mouth three times daily 600 mg, Oral, 3 times daily, First dose on Thu05/27/24 at 2100 Start: 11-25-2023 take 1 tablet by [facility] three times daily gabapentin (Neurontin) 600 MG tablet Take 600 mg by mouth 3 times daily. 11/25/2023 Active Start: 10-01-2023 End: 10-02-2023 take 600 mg by mouth three times daily 600 mg, Oral, 3 times daily, First dose on Thu10/01/23 at 1800 Start: 08-18-2023 End: 08-20-2023 take 600 mg by mouth three times daily 600 mg, Oral, 3 times daily, First dose on Thu08/18/23 at 0900 Start: 08-11-2023 End: 11-07-2023 take 1 tablet by mouth three times daily gabapentin (Neurontin) 600 MG tablet Take 600 mg by mouth 3 times daily. 08/11/2023 11/07/2023 Active Start: 02-28-2023 End: 03-03-2023 take 600 mg by mouth three times daily 600 mg, Oral, 3 times daily, First dose on 02/28/23 at 0900 Start: 03-02-2022 End: 10-01-2023 take 2 capsules by mouth three times daily gabapentin (Neurontin) 300 MG capsule Take 600 mg by mouth 3 times daily. 03/02/2022 10/01/2023 Discontinued (Therapy completed) Start: 12-03-2021 End: 12-03-2021 gabapentin (NEURONTIN) capsu le 100 mg Start: 02-06-2021 take 1 capsule by mo [facility] three times daily gabapentin (NEURONTIN) 300 MG capsule take 1 capsule by mouth three times a day 0 02/06/2021 Active Start: 11-19-2020 End: 11-19-2020 gabapentin (NEURONTIN) capsu le 100 mg Start: 10-26-2020 End: 10-26-2020 gabapentin (NEURONTIN) capsu le 100 mg Start: 08-26-2020 End: 10-01-2020 take 2 capsules by mouth three times daily gabapentin (NEURONTIN) 300 MG capsule Take 2 capsules by mouth 3 times daily for 30 days. 180 capsule 0 08/26/2020 10/01/2020 Discontinued (Stop Taking at Discharge) Start: 07-25-2020 End: 08-24-2020 take 2 capsules by mouth three times daily gabapentin (NEURONTIN) 300 MG capsule Take 2 capsules by mouth 3 times daily for 30 days. 180 capsule 0 07/25/2020 08/22/2020 Discontinued (LIST CLEANUP) Start: 07-24-2020 gabapentin (NE URONTIN) capsule 600 mg Start: 07-18-2020 End: 07-25-2020 take 400 mg by mouth three times daily 400 mg, Oral, 3 TIMES DAILY, First dose on Thu07/23/20 at 2145 Start: 04-14-2019 gabapentin (NE URONTIN) 300 mg capsule 1 capsule 0 04/14/2019 Active End: 08-22-2020 take 1 tablet by mouth three times daily gabapentin (NEURONTIN) 600 MG tablet Take 600 mg by mouth 3 times daily. 0 08/22/2020 Discontinued (LIST CLEANUP) Comment on above: 1 capsule gelatin adsorbable (GELFOAM) sponge (1 source) Start: 06-05-2020 End: 06-05-2020 gelatin adsorbable (GELFOAM) sponge 1 ml heparin sodium, porcine 5000 unt/ml prefilled syringe (3 sources) Unfractionated Heparin, Anti-coagulant Start: 12-03-2021 End: 12-03-2021 heparin (porcine) injection 5,000 Units Start: 09-11-2020 inject 1 dose by sub cutaneous injection three times daily 5,000 Units, Subcutaneous, EVERY 8 HOURS SCHEDULED (3 times per day), First dose on Thu09/11/20 at 2200 Start: 06-04-2020 inject 1 dose by sub cutaneous injection three times daily 5,000 Units, Subcutaneous, EVERY 8 HOURS SCHEDULED (3 times per day), First dose on Thu06/04/20 at 1600 1 ml HYDROmorphone hydrochloride 1 mg/ml cartridge (20 sources) Opioid Agonist Start: 06-28-2024 End: 06-30-2024 take 0.5 mg intravenously every four hours as needed for pain 0.5 mg, IntraVENous, Every 4 hours PRN, severe pain (7-10), Starting on Thu06/28/24 at 1120, If oral and injectable narcotics ordered, use oral first and only use injectable if oral is ineffective or cannot take oral. Do Not give oral and injectable within 1 hour of each other unless specifically ordered. Start: 06-24-2024 End: 06-28-2024 take 1 mg by mouth every three hours as needed for pain 1 mg, IntraVENous, Every 3 hours PRN, severe pain (7-10), Starting on Thu06/24/24 at 0853, If oral and IV narcotics ordered, use oral first and only use IV if oral is ineffective or cannot take oral. Do Not give oral and IV within 1 hour of each other unless specifically ordered. Start: 06-23-2024 End: 06-24-2024 take 1 mg intravenously every four hours as needed for pain 1 mg, IntraVENous, Every 4 hours PRN, severe pain (7-10), Starting on Monica 06/23/24 at 2037, If oral and IV narcotics ordered, use oral first and only use IV if oral is ineffective or cannot take oral. Do Not give oral and IV within 1 hour of each other unless specifically ordered. Start: 05-27-2024 End: 05-27-2024 0.5 mg, IntraVENous, Every 5 min PRN, severe pain (7-10), Starting on Thu05/27/24 at 1610, For 4 doses, Recovery (only), For Phase I. If Phase II oral narcotics have been administered in the last 60 minutes, do not administer IV narcotics unless specifically approved by provider. Start: 10-01-2023 End: 10-01-2023 take 0.5 mg by mouth once 0.5 mg, IntraVENous, Once, O n Monica 10/01/23 at 1245, For 1 dose, If oral and IV narcotics ordered, use oral first and only use IV if oral is ineffective or cannot take oral. Do Not give oral and IV within 1 hour of each other unless specifically ordered. Start: 10-01-2023 End: 10-01-2023 take 1 dose by mouth every hour 1 mg, IntraVENous, Onc e, On Monica 10/01/23 at 1045, For 1 dose, If oral and IV narcotics ordered, use oral first and only use IV if oral is ineffective or cannot take oral. Do Not give oral and IV within 1 hour of each other unless specifically ordered. Start: 09-23-2023 End: 09-25-2023 take 0.5 mg intravenously every four hours as needed for pain HYDROmorphone (Dilaudid) injection 0.5 mg Start: 09-16-2023 End: 09-16-2023 HYDROmorphone (Dilaudid) injection 0.5 mg Start: 09-16-2023 End: 09-16-2023 HYDROmorphone (Dilaudid) injection 0.25 mg Start: 08-21-2023 End: 08-21-2023 HYDROmorphone (Dilaudid) injection 0.25 mg Start: 08-18-2023 End: 08-19-2023 take 1 mg intravenously every four hours as needed for pain HYDROmorphone (Dilaudid) injection 1 mg Start: 08-18-2023 End: 08-19-2023 HYDROmorphone (Dilaudid) injection 0.5 mg Start: 02-27-2023 End: 03-03-2023 HYDROmorphone (Dilaudid) injection 0.5 mg Start: 02-27-2023 End: 02-27-2023 HYDROmorphone (Dilaudid) injection 1 mg Start: 02-21-2023 End: 02-21-2023 take 0.5 mg intravenously every four hours as needed for pain HYDROmorphone (Dilaudid) injection 0.5 mg Start: 02-21-2023 End: 02-21-2023 HYDROmorphone (Dilaudid) injection 1 mg Start: 02-15-2023 End: 02-15-2023 HYDROmorphone (Dilaudid) injection 1 mg Start: 12-17-2021 End: 12-18-2021 HYDROmorphone (DILAUDID) injection 0.5 mg Start: 12-03-2021 End: 12-03-2021 HYDROmorphone (DILAUDID) injection 0.5 mg Start: 12-03-2021 End: 12-03-2021 HYDROmorphone (DILAUDID) injection 0.5 mg Start: 11-19-2020 HYDROmorphone (DILAUDID) injection 0.5 mg Start: 11-19-2020 HYDROmorphone (DILAUDID) injection 0.25 mg Start: 11-01-2020 End: 11-01-2020 HYDROmorphone (DILAUDID) injection 1 mg Start: 10-30-2020 End: 10-30-2020 HYDROmorphone (DILAUDID) injection 1 mg Start: 10-26-2020 HYDROmorphone (DILAUDID) injection 0.5 mg Start: 10-26-2020 HYDROmorphone (DILAUDID) injection 0.25 mg Start: 06-08-2020 End: 06-11-2020 HYDROmorphone (DILAUDID) injection 1 mg HYDROmorphone (Dilaudid) injection 0.25 mg (2 sources) Start: 05-27-2024 End: 05-28-2024 HYDROmorphone (Dilaudid) injection 0.25 mg ibuprofen 600 mg oral tablet (20 sources) Nonsteroidal Anti-inflammatory Drug Start: 08-06-2022 End: 08-20-2023 take 1 tablet by mouth three times daily at mealtime ibuprofen 600 MG tablet take 1 tablet by mouth three times a day if needed with food or milk for 10 days 0 08/06/2022 08/20/2023 Discontinued (Stop taking at discharge) Start: 04-21-2020 End: 04-21-2020 ibuprofen (ADVIL;MOTRIN) tab let 600 mg 3 ml insulin glargine 100 unt/ml pen injector (17 sources) Insulin Analog Start: 02-06-2021 insulin glargi ne (LANTUS SOLOSTAR) 100 UNIT/ML injection pen Indications: Diabetes Mellitus Inject 40 Units as directed at bedtime Indications: Diabetes 0 02/06/2021 Suspended Start: 02-06-2021 insulin glargi ne (LANTUS SOLOSTAR) 100 UNIT/ML injection pen Inject 40 Units as directed 2 times daily 0 02/06/2021 Active insulin, regular, human 100 unt/ml injectable solution (1 source) Insulin Start: 02-09-2021 End: 02-09-2021 insulin regular (HUMULIN R;NOVOLIN R) injection 5 Units iopamidol (ISOVUE-300) 61 % injection 50 mL (1 source) Start: 10-26-2020 End: 10-26-2020 iopamidol (ISOVUE-300) 61 % injection 50 mL iopamidol (ISOVUE-370) 76 % injection 75 mL (2 sources) Start: 05-01-2020 End: 05-01-2020 iopamidol (ISOVUE-370) 76 % injection 75 mL Start: 03-30-2020 End: 03-30-2020 iopamidol (ISOVUE-370) 76 % injection 75 mL ipratropium bromide 0.2 mg/ml inhalation solution (3 sources) Anticholinergic Start: 09-11-2020 End: 09-11-2020 ipratropium (ATROVENT) 0.02 % nebulizer solution 0.5 mg Start: 07-23-2020 End: 07-23-2020 ipratropium (ATROVENT) 0.02 % nebulizer solution 0.5 mg isopropyl alcohol 0.7 ml/ml medicated pad (2 sources) Start: 05-27-2024 End: 05-27-2024 2 Swab (1 Package), Topical, Once, On Thu05/27/24 at 1130, For 1 dose, Preprocedure, Flip ampule around in paper sleeve to expose swab tip. Shake well. With sleeve on ampule, crush at dot to pop. Squeeze to wet swab tip. Swab around nostril rims 8 times in each direction. Squeeze to rewet swab tip and repeat. Repeat for other nostril. Caution : Do not extend in nose beyond swab tip. Appy to skin only. Discard after use. 1 ml ketorolac tromethamine 30 mg/ml cartridge (3 sources) Nonsteroidal Anti-inflammatory Drug, Cyclooxygenase Inhibitor Start: 07-03-2022 End: 07-03-2022 ketorolac (Toradol) injection 15 mg Start: 08-03-2020 End: 08-03-2020 ketorolac (TORADOL) injectio n 30 mg Start: 04-21-2020 End: 04-21-2020 ketorolac (TORADOL) injectio n 30 mg levothyroxine sodium 0.075 mg oral tablet (20 sources) l-Thyroxine Start: 09-24-2023 End: 09-25-2023 take 75 ug by mouth once daily before breakfast 75 mcg, Oral, Daily before breakfast, First dose on Thu09/24/23 at 0600, Phase II/On Unit, Tube feeding (TF) interaction, obtain physician order to manage, recommend holding TF for 30 minutes before and after dose., Indications: Hypothyroidism Start: 08-18-2023 End: 08-20-2023 take 75 ug by mouth once daily before breakfast 75 mcg, Oral, Daily before breakfast, First dose on Thu08/18/23 at 0600, Tube feeding (TF) interaction, obtain physician order to manage, recommend holding TF for 30 minutes before and after dose., Indications: Hypothyroidism Start: 03-19-2022 End: 06-30-2024 take 1 tablet by mouth once daily before breakfast levothyroxine (Synthroid, Levoxyl) 75 MCG tablet Indications: Hypothyroidism Take 1 tablet by mouth every morning (before breakfast). 03/19/2022 Active Start: 12-04-2021 take 50 ug by mouth once daily 50 mcg, Oral, DAILY, First dose on Thu12/18/21 at 0700, Until Discontinued Tube feeding (TF) interaction, obtain physician order to manage, recommend holding TF for 30 minutes before and after dose. 10 ml lidocaine hydrochloride 10 mg/ml injection (20 sources) Antiarrhythmic, Amide Local Anesthetic Start: 12-08-2024 End: 12-08-2024 lidocaine (Xylocaine) 1 % injection 7 mL Start: 12-08-2024 End: 12-08-2024 7 mL, Injection, Once, On 12/08/24 at 1515, For 1 dose Start: 12-08-2024 End: 12-08-2024 lidocaine (Xylocaine) 1 % injection 7 mL Start: 12-08-2024 End: 12-08-2024 7 mL, Injection, Once, On 12/08/24 at 1515, For 1 dose Start: 06-30-2024 End: 06-30-2024 15 mL, Mouth/Throat, Every 3 hours PRN, mild pain (1-3), Starting on Thu06/30/24 at 0542, Max 8 doses per 24-hour period Start: 06-24-2024 End: 06-30-2024 apply 1 dose transdermal route once daily, then apply 1 dose transdermal route every twelve hours 1 patch, TransDERmal, Administer over 12 Hours, Daily, First dose on Thu06/24/24 at 1445, Apply patch to back. Patch may remain in place for up to 12 hours in any 24 hour period. Start: 06-23-2024 End: 06-30-2024 Topical, 3 times daily PRN, mild pain (1-3), Starting on Thu06/23/24 at 2038 Start: 05-11-2024 apply 1 dose transde rmal route once daily lidocaine (Lidoderm) 5 % patch Apply 1 patch topically daily. 05/11/2024 Active Start: 09-16-2023 lidocaine (Uro -Jet) 2 % gel Urojet transurethral as needed. Disp 10 10cc syriges to use as needed 100 mL 1 09/16/2023 Suspended Start: 09-16-2023 End: 09-16-2023 lidocaine PF (Xylocaine) 2 % injection Start: 08-27-2023 End: 09-25-2023 lidocaine (Uro-Jet) 2 % gel Indications: Urethral pain Insert into the urethra as needed for mild pain (1-3). 5 mL 1 08/27/2023 09/25/2023 Discontinued (Stop taking at discharge) Start: 08-18-2023 End: 08-20-2023 lidocaine (Uro-Jet) 2 % gel Start: 03-01-2023 End: 03-03-2023 Lidocaine 4 % patch 1 patch Start: 07-03-2022 End: 07-03-2022 lidocaine (Xylocaine) 2 % mo uth solution 15 mL Start: 11-19-2020 End: 11-19-2020 lidocaine PF 1 % injection 1 mL Start: 10-31-2020 End: 10-31-2020 lidocaine (XYLOCAINE) 2 % ur o-jet Start: 10-26-2020 End: 10-26-2020 lidocaine PF 1 % injection 1 mL Start: 09-14-2020 End: 09-29-2020 apply 1 dose transdermal route once daily lidocaine (HM LIDOCAINE PATCH) 4 % external patch Apply 1 patch topically daily To Right flank, focal pain center 0 09/14/2020 09/29/2020 Discontinued (LIST CLEANUP) Start: 09-13-2020 End: 11-03-2020 apply 1 dose transdermal route once daily lidocaine 4 % external patch Place 1 patch onto the skin daily 30 patch 0 10/04/2020 11/03/2020 Active Start: 09-11-2020 apply 1 dose transde rmal route every twelve hours 1 patch, Transdermal, Administer over 12 Hours, DAILY, First dose on Thu09/11/20 at 1841 Apply patch to back. Patch may remain in place for up to 12 hours in any 24 hour period. Start: 06-09-2020 apply 1 dose transde rmal route every twelve hours 1 patch, Transdermal, Administer over 12 Hours, DAILY, First dose on 06/09/20 at 0000 Apply patch to neck. Patch may remain in place for up to 12 hours in any 24 hour period. Start: 06-05-2020 End: 06-05-2020 lidocaine PF 2 % injection Start: 06-04-2020 apply 1 dose transde rmal route every twelve hours 1 patch, Transdermal, Administer over 12 Hours, DAILY, First dose on Thu06/04/20 at 1445 Apply patch to affected area/ back. Patch may remain in place for up to 12 hours in any 24 hour period. lisinopril 10 mg oral tablet (8 sources) Angiotensin Converting Enzyme Inhibitor Start: 06-11-2020 End: 08-22-2020 take 1 tablet by mouth once daily lisinopril (PRINIVIL;ZESTRIL) 10 MG tablet Take 1 tablet by mouth daily 60 tablet 1 06/11/2020 08/22/2020 Discontinued (LIST CLEANUP) 1 ml LORazepam 2 mg/ml injection (11 sources) Benzodiazepine Start: 09-23-2023 End: 09-23-2023 LORazepam (Ativan) injection 0.5 mg Start: 09-16-2023 End: 09-16-2023 LORazepam (Ativan) injection 0.5 mg Start: 09-16-2023 End: 09-16-2023 LORazepam (Ativan) injection 0.5 mg Start: 08-17-2023 End: 08-17-2023 LORazepam (Ativan) injection 1 mg Start: 12-03-2021 1 mg, IntraVEN ous, NIGHTLY PRN, Starting on Thu12/03/21 at 2100, Until Discontinued, Sleep Start: 12-03-2021 End: 12-03-2021 LORazepam (ATIVAN) injection 0.5 mg Start: 10-31-2020 End: 10-31-2020 LORazepam (ATIVAN) injection 1 mg Start: 10-04-2020 End: 10-04-2020 LORazepam (ATIVAN) tablet 1 mg Start: 07-24-2020 End: 07-24-2020 LORazepam (ATIVAN) injection 1 mg magnesium citrate 58.2 mg/ml oral solution (7 sources) Start: 05-27-2024 End: 05-28-2024 Start: 10-01-2023 End: 10-01-2023 take 8 [oz_av] by mouth once 296 mL, Oral, Once, On u 10/01/23 at 1715, For 1 dose, Administer each dose with 8 oz (240 mL) of water. Start: 05-01-2020 End: 05-01-2020 magnesium citrate solution 2 96 mL 1 ml meperidine hydrochloride 25 mg/ml cartridge (4 sources) Opioid Agonist Start: 09-16-2023 End: 09-16-2023 meperidine (Demerol) injection 12.5 mg Start: 11-19-2020 meperidine (DE MEROL) injection 12.5 mg Start: 10-26-2020 meperidine (DE MEROL) injection 12.5 mg methocarbamol 750 mg oral tablet (20 sources) Muscle Relaxant Start: 09-29-2023 End: 05-13-2024 methocarbamol (Robaxin) 750 MG tablet Take 1 tablet (750 mg) by mouth in the morning and 1 tablet (750 mg) at noon and 1 tablet (750 mg) in the evening and 1 tablet (750 mg) before bedtime. Do all this for 10 days. 40 tablet 09/29/2023 05/13/2024 Discontinued (Therapy completed) Start: 03-01-2023 End: 03-03-2023 methocarbamol (Robaxin) tabl et 750 mg Start: 06-10-2022 End: 08-20-2023 take 1.5 tablets by mouth every eight hours as needed for muscle spasms methocarbamol (Robaxin) 500 MG tablet Take 1.5 tablets (750 mg) by mouth every 8 hours as needed for muscle spasms for up to 5 days. 20 tablet 0 06/10/2022 08/20/2023 Discontinued (Stop taking at discharge) Start: 06-10-2022 methocarbamol (Robaxin) injection 1,000 mg Start: 11-05-2021 End: 06-10-2022 take 2 tablets by mouth three times daily methocarbamol (Robaxin) 750 MG tablet TAKE TWO (2) TABLETS BY MOUTH THREE TIMES A DAY FOR 5 DAYS 0 11/05/2021 06/10/2022 Discontinued Start: 11-05-2021 methocarbamol (ROBAXIN) 750 MG tablet in the morning and at bedtime 0 11/05/2021 Active Start: 10-03-2021 End: 10-08-2021 take 1 tablet by mouth every six hours as needed for pain methocarbamol (ROBAXIN) 500 MG tablet Take 1 tablet by mouth every 6 hours as needed (Pain) 20 tablet 0 10/03/2021 10/08/2021 Active Start: 09-11-2020 End: 09-11-2020 methocarbamol (ROBAXIN) inje ction 1,000 mg 2 ml metoclopramide 5 mg/ml prefilled syringe (1 source) Dopamine-2 Receptor Antagonist Start: 02-27-2023 End: 02-27-2023 metoclopramide (Reglan) injection 10 mg metOLazone 2.5 mg oral tablet (20 sources) Thiazide-like Diuretic Start: 08-05-2021 End: 06-22-2023 metOLazone (Zaroxolyn) 2.5 MG tablet Start: 01-07-2021 take 1 tablet by boris th three times weekly metOLazone (ZAROXOLYN) 2.5 MG tablet Take 1 tablet by mouth three times a week 30 tablet 0 01/07/2021 Active Start: 10-02-2020 take 1 tablet by boris th once daily metOLazone (ZAROXOLYN) 2.5 MG tablet Take 1 tablet by mouth daily Take 30min before torsemide 30 tablet 3 10/02/2020 Active Start: 09-29-2020 End: 09-29-2020 metOLazone (ZAROXOLYN) table t 2.5 mg Start: 08-08-2020 End: 08-26-2020 metOLazone (ZAROXOLYN) table t 2.5 mg 2 ml midazolam 1 mg/ml injection (3 sources) Benzodiazepine Start: 09-16-2023 End: 09-16-2023 midazolam (Versed) injection Start: 06-05-2020 End: 06-05-2020 midazolam (VERSED) injection 1 ml morphine sulfate 4 mg/ml cartridge (20 sources) Opioid Agonist Start: 02-15-2025 End: 02-15-2025 take 1 dose by mouth every hour 8 mg, SubCUTAneous, Once, On Thu02/15/25 at 1110, For 1 dose, If oral and IV narcotics ordered, use oral first and only use IV if oral is ineffective or cannot take oral. Do Not give oral and IV within 1 hour of each other unless specifically ordered. Start: 06-23-2024 End: 06-23-2024 take 1 dose by mouth every hour 4 mg, IntraVENous, Onc e, On Monica 06/23/24 at 1450, For 1 dose, If oral and injectable narcotics ordered, use oral first and only use injectable if oral is ineffective or cannot take oral. Do Not give oral and injectable within 1 hour of each other unless specifically ordered. Start: 10-01-2023 End: 10-01-2023 take 1 dose by mouth every hour 4 mg, IntraVENous, Onc e, On Monica 10/01/23 at 0930, For 1 dose, If oral and IV narcotics ordered, use oral first and only use IV if oral is ineffective or cannot take oral. Do Not give oral and IV within 1 hour of each other unless specifically ordered. Start: 09-23-2023 End: 09-23-2023 take 1 [IU] by mouth every hour as needed 2 mg, IntraVENous, Every 3 hours PRN, severe pain (7-10), Starting on Thu09/23/23 at 1407, Phase II/On Unit, If oral and IV narcotics ordered, use oral first and only use IV if oral is ineffective or cannot take oral. Do Not give oral and IV within 1 hour of each other unless specifically ordered. Start: 04-10-2023 End: 04-10-2023 morphine injection 4 mg Start: 03-04-2023 End: 03-04-2023 morphine injection 2 mg Start: 02-15-2023 End: 02-15-2023 morphine injection 4 mg Start: 06-09-2022 End: 06-10-2022 morphine sulfate (PF) inject ion 4 mg Start: 12-17-2021 End: 12-17-2021 morphine sulfate (PF) inject ion 4 mg Start: 10-21-2021 End: 10-21-2021 morphine sulfate (PF) inject ion 4 mg Start: 06-15-2021 End: 06-15-2021 morphine sulfate (PF) inject ion 4 mg Start: 11-01-2020 End: 11-01-2020 morphine injection 4 mg Start: 09-29-2020 End: 09-29-2020 morphine injection 4 mg Start: 09-13-2020 End: 09-13-2020 morphine (PF) injection 2 mg Start: 09-11-2020 End: 09-12-2020 morphine (PF) injection 4 mg Start: 07-24-2020 End: 07-24-2020 morphine sulfate (PF) inject ion 2 mg Start: 07-23-2020 End: 07-23-2020 morphine sulfate (PF) inject ion 4 mg Start: 06-08-2020 End: 06-08-2020 morphine injection 4 mg Start: 06-04-2020 End: 06-04-2020 morphine (PF) injection 2 mg Start: 04-29-2020 morphine (PF) injection 2 mg Start: 04-29-2020 End: 04-29-2020 morphine injection 4 mg morphine injection 2 mg (2 sources) Start: 10-02-2023 End: 10-02-2023 take 2 mg intravenously every four hours as needed for pain morphine injection 2 mg mupirocin 0.02 mg/mg topical ointment (20 sources) RNA Synthetase Inhibitor Antibacterial Start: 06-24-2024 End: 06-30-2024 apply 1 dose topically twice daily Topical, 2 times daily, First dose on Thu06/24/24 at 0900 Start: 02-17-2022 End: 08-20-2023 mupirocin (Bactroban) 2 % oi ntment Start: 10-21-2021 End: 10-21-2021 mupirocin (BACTROBAN) 2 % cr eam 1 ml naloxone hydrochloride 0.4 mg/ml injection (10 sources) Opioid Antagonist Start: 06-23-2024 End: 06-30-2024 0.4 mg, IntraVENous, Every 5 min PRN, opioid reversal, respiratory depression, Starting on Monica 06/23/24 at 1916, +++ For RR Start: 05-27-2024 End: 05-28-2024 Start: 10-01-2023 End: 10-02-2023 0.4 mg, IntraVENous, Every 5 min PRN, opioid reversal, respiratory depression, Starting on Monica 10/01/23 at 1622, +++ For RR Start: 09-23-2023 End: 09-25-2023 naloxone (Narcan) injection 0.4 mg Start: 08-18-2023 End: 08-20-2023 naloxone (Narcan) injection 0.4 mg nystatin 717736 unt/ml topical cream (20 sources) Polyene Antifungal Start: 06-29-2024 End: 06-30-2024 apply 1 dose topically twice daily Topical, 2 times daily, First dose on Thu06/29/24 at 2230, Apply to affected area Start: 07-14-2023 End: 07-13-2024 nystatin (Mycostatin) 133151 UNIT/GM powder Apply to affected area 3 times daily 30 g 0 07/14/2023 08/20/2023 Discontinued (Stop taking at discharge) Start: 12-01-2022 End: 06-22-2023 nystatin (Mycostatin) [id number] UNIT/GM powder Indications: Cutaneous Candidiasis Apply 1 Application topically 2 times daily. Apply topically to affected area two times daily. 60 g 2 12/01/2022 06/22/2023 Discontinued (Therapy completed) ondansetron 4 mg disintegrating oral tablet (20 sources) Serotonin-3 Receptor Antagonist Start: 02-15-2025 End: 02-15-2025 take 4 mg by mouth once 4 mg, Oral, Once, On Thu02/15/25 at 1110, For 1 dose Start: 06-23-2024 End: 06-23-2024 4 mg, IntraVENous, Once, On Thu06/23/24 at 1500, For 1 dose Start: 06-23-2024 End: 06-23-2024 4 mg, IntraVENous, Once, On Thu06/23/24 at 1500, For 1 dose Start: 06-23-2024 End: 06-23-2024 4 mg, IntraVENous, Once, On Thu06/23/24 at 1105, For 1 dose Start: 05-27-2024 End: 06-30-2024 take 1 tablet by mouth every eight hours ondansetron (Zofran) 4 MG tablet Take 1 tablet (4 mg) by mouth every 8 hours. Take 1 tablet every 8 hours as needed for nausea and/or vomiting. May take 2 tablets if needed. 10 tablet 05/27/2024 5:30 PM EST 05/27/2024 06/30/2024 Discontinued (Stop taking at discharge) Start: 11-25-2023 take 1 tablet by boris th three times daily as needed for nausea ondansetron (Zofran) 4 MG tablet TAKE 1 TABLET BY MOUTH 3 TIMES DAILY NEEDED FOR NAUSEA & VOMITING NEEDED 11/25/2023 Active Start: 10-01-2023 End: 10-01-2023 4 mg, IntraVENous, Once, On Monica 10/01/23 at 0930, For 1 dose Start: 09-23-2023 End: 10-02-2023 take 1 tablet by mouth every eight hours as needed for nausea and vomiting ondansetron (Zofran) 8 MG tablet Take 1 tablet (8 mg) by mouth every 8 hours as needed for nausea or vomiting for up to 7 days. 20 tablet 09/23/2023 10/02/2023 Active Start: 09-16-2023 End: 09-16-2023 ondansetron (Zofran) injecti on 4 mg Start: 06-25-2023 End: 08-20-2023 take 1 tablet by mouth three times daily for nausea and vomiting ondansetron (Zofran) 4 MG tablet take 1 tablet by mouth three times a day if needed for nausea and vomiting 0 06/25/2023 08/20/2023 Discontinued (Stop taking at discharge) Start: 02-27-2023 End: 02-27-2023 ondansetron (Zofran) injecti on 4 mg Start: 02-15-2023 End: 02-15-2023 ondansetron (Zofran) injecti on 4 mg Start: 07-03-2022 End: 07-03-2022 ondansetron (Zofran) injecti on 4 mg Start: 01-31-2022 End: 08-20-2023 take 1 tablet by mouth every eight hours as needed for nausea and vomiting ondansetron ODT (Zofran-ODT) 4 MG disintegrating tablet Take 1 tablet (4 mg) by mouth every 8 hours as needed for nausea or vomiting for up to 7 days. 20 tablet 0 07/03/2022 07/03/2022 Discontinued (Reorder) Start: 12-17-2021 End: 12-17-2021 4 mg, IntraVENous, EVERY 6 H OURS PRN, Starting on Thu12/18/21 at 0139, Until Discontinued, Nausea, Vomiting Start: 12-03-2021 take 1 tablet by boris th three times daily as needed for nausea ondansetron (ZOFRAN) 4 MG tablet Take 1 tablet by mouth 3 times daily as needed for Nausea or Vomiting 30 tablet 0 12/03/2021 Active Start: 12-03-2021 End: 12-03-2021 4 mg, IntraVENous, EVERY 6 H OURS PRN, Starting on Thu12/03/21 at 1245, Until Discontinued, Nausea, Post-op Start: 06-15-2021 End: 06-15-2021 ondansetron (ZOFRAN) injecti on 4 mg Start: 02-09-2021 End: 12-03-2021 take 1 tablet by mouth every eight hours as needed for nausea ondansetron (ZOFRAN ODT) 4 MG disintegrating tablet Take 1 tablet by mouth every 8 hours as needed for Nausea 20 tablet 0 02/09/2021 12/03/2021 Discontinued (Stop Taking at Discharge) Start: 02-09-2021 ondansetron (Z OFRAN) injection 4 mg Start: 11-19-2020 End: 11-19-2020 ondansetron (ZOFRAN) injecti on 4 mg Start: 11-01-2020 End: 11-01-2020 ondansetron (ZOFRAN) injecti on 4 mg Start: 10-26-2020 End: 10-26-2020 ondansetron (ZOFRAN) injecti on 4 mg Start: 09-29-2020 End: 09-29-2020 ondansetron (ZOFRAN) injecti on 4 mg Start: 07-23-2020 4 mg, Intraven ous, EVERY 6 HOURS PRN, Nausea, Vomiting, Starting 07/23/20 at 2115 Start: 06-08-2020 End: 06-08-2020 ondansetron (ZOFRAN) injecti on 4 mg Start: 04-29-2020 End: 04-29-2020 ondansetron (ZOFRAN) injecti on 4 mg ondansetron ODT (Zofran-ODT) disintegrating tablet 4 mg (11 sources) Start: 06-23-2024 End: 06-30-2024 take 1 tablet by mouth every eight hours as needed for nausea and vomiting ondansetron ODT (Zofran-ODT) disintegrating tablet 4 mg Start: 05-27-2024 End: 05-28-2024 take 1 tablet by mouth every eight hours as needed for nausea and vomiting ondansetron ODT (Zofran-ODT) disintegrating tablet 4 mg Start: 10-01-2023 End: 10-02-2023 take 1 tablet by mouth every eight hours as needed for nausea and vomiting ondansetron ODT (Zofran-ODT) disintegrating tablet 4 mg Start: 09-23-2023 End: 09-25-2023 take 1 tablet by mouth every eight hours as needed for nausea and vomiting ondansetron ODT (Zofran-ODT) disintegrating tablet 4 mg Start: 08-18-2023 End: 08-20-2023 take 1 tablet by mouth every eight hours as needed for nausea and vomiting ondansetron ODT (Zofran-ODT) disintegrating tablet 4 mg Start: 02-28-2023 End: 03-03-2023 take 1 tablet by mouth every eight hours as needed for nausea and vomiting ondansetron ODT (Zofran-ODT) disintegrating tablet 4 mg pantoprazole (ProtoNix) 40 m g in sodium chloride (PF) 0.9 % 10 mL injection (4 sources) Start: 02-28-2023 End: 03-03-2023 pantoprazole (ProtoNix) 40 m g in sodium chloride (PF) 0.9 % 10 mL injection Start: 02-27-2023 End: 02-27-2023 pantoprazole (ProtoNix) 40 m g in sodium chloride (PF) 0.9 % 10 mL injection Start: 02-21-2023 End: 02-21-2023 pantoprazole (ProtoNix) 40 m g in sodium chloride (PF) 0.9 % 10 mL injection PARoxetine hydrochloride 20 mg oral tablet (20 sources) Serotonin Reuptake Inhibitor Start: 03-02-2022 End: 08-20-2023 take 1 tablet by mouth once daily in the morning PARoxetine (Paxil) 20 MG tablet Take 20 mg by mouth every morning. 0 03/02/2022 08/20/2023 Discontinued (Stop taking at discharge) Start: 11-21-2021 PARoxetine (PA XIL) 20 MG tablet daily 0 11/21/2021 Active petrolatum 0.41 mg/mg topica l ointment (20 sources) Start: 09-14-2023 End: 05-27-2024 Emollient (Aquaphor Advanced Therapy) ointment apply to affected area up to four times a day 09/14/2023 05/27/2024 Discontinued Start: 07-05-2021 Emollient (Aqu aphor Advanced Therapy) ointment Start: 07-05-2021 End: 08-20-2023 Emollient (Aquaphor Advanced Therapy) ointment phenazopyridine hydrochloride 100 mg oral tablet (20 sources) Start: 09-23-2023 End: 09-25-2023 take 200 mg by mouth three times daily as needed for muscle spasms 200 mg, Oral, 3 times daily PRN, bladder spasms, Starting on Thu09/23/23 at 1407, Phase II/On Unit Start: 09-16-2023 End: 09-15-2024 take 1 tablet by mouth three times daily as needed for muscle spasms phenazopyridine (Pyridium) 200 MG tablet Take 1 tablet (200 mg) by mouth 3 times daily as needed for bladder spasms. 30 tablet 3 09/16/2023 10/01/2023 Discontinued (Therapy completed) Start: 11-19-2020 End: 11-22-2020 take 1 tablet by mouth three times daily as needed for pain phenazopyridine (PYRIDIUM) 200 MG tablet Take 1 tablet by mouth 3 times daily as needed for Pain 9 tablet 0 11/19/2020 11/22/2020 Active Start: 11-01-2020 End: 11-04-2020 take 1 tablet by mouth three times daily as needed for pain phenazopyridine (PYRIDIUM) 200 MG tablet Take 1 tablet by mouth 3 times daily as needed for Pain 9 tablet 0 11/01/2020 11/04/2020 Active Start: 11-01-2020 End: 11-01-2020 phenazopyridine (PYRIDIUM) t ablet 200 mg Start: 10-26-2020 End: 10-29-2020 take 1 tablet by mouth three times daily as needed for pain phenazopyridine (PYRIDIUM) 200 MG tablet Take 1 tablet by mouth 3 times daily as needed for Pain 9 tablet 0 10/26/2020 10/29/2020 Active piperacillin-tazobactam (Zosyn) 4,500 mg in sodium chloride 0.9 % 100 mL IVPB Mini-Bag Plus (4 sources) Start: 06-23-2024 End: 06-24-2024 take 4500 mg intravenously every six hours 4,500 mg, IntraVENous, at 33.3 mL/hr, Administer over 3 Hours, Every 6 hours, First dose on Monica 06/23/24 at 2100, Mini-Bag Plus bag, Suspected Indication (Select all that apply): Skin and Soft Tissue Infection Start: 06-23-2024 End: 06-23-2024 4,500 mg, IntraVENous, at 20 0 mL/hr, Administer over 0.5 Hours, Once, On Thu06/23/24 at 1420, For 1 dose, Mini-Bag Plus bag, Suspected Indication (Select all that apply): Skin and Soft Tissue Infection polyethylene glycol 3350 26550 mg powder for oral solution (20 sources) Osmotic Laxative Start: 06-23-2024 End: 06-30-2024 take 17 g by mouth every twenty-four hours as needed for constipation 17 g, Oral, Daily PRN, constipation, Starting on Thu06/23/24 at 1911, 1st line for treatment of constipation - give scheduled if no bowel movement in past 24 hours. Start: 10-01-2023 End: 10-02-2023 take 1 dose by mouth every twenty-four hours for constipation 17 g, Oral, Daily, First dose (after last modification) on Thu10/01/23 at 1505, 1st line for treatment of constipation - give scheduled if no bowel movement in past 24 hours. Start: 08-18-2023 End: 08-20-2023 take 17 g by mouth every twenty-four hours as needed for constipation 17 g, Oral, Daily PRN, constipation, Starting on Thu08/18/23 at 0441, 1st line for treatment of constipation - give scheduled if no bowel movement in past 24 hours. Start: 03-01-2023 End: 03-03-2023 polyethylene glycol (PEG) 33 50 (Miralax) packet 17 g Start: 12-05-2021 End: 12-05-2022 take 17 g by mouth once daily as needed for constipation, then take 17 g by mouth once daily as needed for constipation polyethylene glycol, PEG, 3350 (Glycolax) 17 GM/SCOOP powder TAKE 17 G BY MOUTH DAILY NEEDED (TAKE ONCE DAILY NEEDED FOR CONSTIPATION) 510 g 0 12/05/2021 12/05/2022 Start: 09-29-2020 polyethylene g lycol (GLYCOLAX) packet 17 g Start: 07-23-2020 17 g, Oral, DA JORGE PRN, Constipation, Starting 07/23/20 at 2115 First line therapy for constipation Start: 06-08-2020 17 g, Oral, DA JORGE PRN, Constipation, Starting 06/08/20 at 2343 First line therapy for constipation Start: 06-04-2020 17 g, Oral, DA OJRGE PRN, Constipation, Starting 06/04/20 at 1418 First line therapy for constipation Start: 04-29-2020 17 g, Oral, DA JORGE PRN, Constipation, Starting 04/29/20 at 1512 First line therapy for constipation microencapsulated potassium chloride 20 meq extended release oral tablet (20 sources) Start: 11-04-2021 End: 08-20-2023 potassium chloride CR (Klor-Con M20) 20 MEQ ER tablet as needed. 0 11/04/2021 08/20/2023 Discontinued (Stop taking at discharge) Start: 10-01-2020 potassium chlo ride (KLOR-CON M) extended release tablet 40 mEq Start: 09-30-2020 End: 09-30-2020 potassium chloride (KLOR-CON M) extended release tablet 40 mEq Start: 08-26-2020 End: 08-26-2020 potassium chloride (KLOR-CON M) extended release tablet 40 mEq Start: 06-11-2020 End: 06-11-2020 potassium chloride 10 mEq/10 0 mL IVPB (Peripheral Line) potassium chlori de (KLOR-CON) 20 MEQ packet Take 20 mEq by mouth as needed 0 Active take 20 mEq by mouth once daily potassium chloride (KLOR-CON) 20 MEQ packet Take 20 mEq by mouth daily 0 Active pregabalin 150 mg oral capsule (20 sources) Start: 03-10-2022 End: 02-28-2023 take 1 capsule by mouth in the morning pregabalin (Lyrica) 150 MG capsule Take 150 mg by mouth in the morning and 150 mg before bedtime. 0 03/10/2022 02/28/2023 Discontinued (Therapy completed) Start: 12-04-2021 pregabalin (LY JAE) capsule 150 mg Start: 09-29-2020 pregabalin (LY JAE) capsule 75 mg Start: 08-23-2020 pregabalin (LY JAE) capsule 75 mg take 1 capsule by mo uth twice daily pregabalin (LYRICA) 150 MG capsule Take 150 mg by mouth 2 times daily. 0 Active take 1 capsule by mo uth three times daily pregabalin (LYRICA) 50 MG capsule Take 50 mg by mouth 3 times daily. Not taking-side effects 0 Active 2 ml prochlorperazine 5 mg/ml injection (1 source) Phenothiazine Start: 04-21-2020 End: 04-21-2020 prochlorperazine (COMPAZINE) injection 10 mg 1 ml promethazine hydrochloride 25 mg/ml injection (20 sources) Phenothiazine Start: 02-28-2023 End: 03-03-2023 inject 6.25 mg by intramuscular injection every six hours as needed for nausea and vomiting 6.25 mg, IntraMUSCular, Every 6 hours PRN, nausea, vomiting, Starting on 02/28/23 at 0408, Only to be given as IM injection. Start: 02-21-2023 End: 02-21-2023 promethazine (Phenergan) inj ection 12.5 mg Start: 11-19-2020 End: 11-19-2020 promethazine (PHENERGAN) inj ection 6.25 mg Start: 10-26-2020 End: 10-26-2020 promethazine (PHENERGAN) inj ection 6.25 mg Start: 09-11-2020 promethazine ( PHENERGAN) tablet 12.5 mg Start: 08-22-2020 promethazine ( PHENERGAN) tablet 12.5 mg Start: 06-08-2020 promethazine ( PHENERGAN) tablet 12.5 mg Start: 06-04-2020 promethazine ( PHENERGAN) tablet 12.5 mg Start: 04-29-2020 promethazine ( PHENERGAN) tablet 12.5 mg End: 08-20-2023 promethazine (Phenergan) 12. 5 MG tablet Take 12.5 mg by mouth. 0 08/20/2023 Discontinued (Stop taking at discharge) 20 ml propofol 10 mg/ml injection (1 source) General Anesthetic Start: 09-16-2023 End: 09-16-2023 Propofol (Diprivan) injection psyllium 3400 mg powder for oral suspension (20 sources) Start: 10-01-2023 End: 09-30-2024 psyllium (Metamucil) 58.6 % powder Take 5.12 g (3 g of fiber) by mouth 2 times daily. 283 g 10/01/2023 09/30/2024 Discontinued (Therapy completed) ropivacaine (Naropin) 5 MG/ML 15 mL, EPINEPHrine (Adrenalin) 30 MG/30ML 0.125 mL in sodium chloride (PF) 0.9 % 15 mL syringe (4 sources) Start: 05-27-2024 End: 05-27-2024 1 Syringe, Intra-artICUlar, Once, On Thu05/27/24 at 1230, For 1 dose, Intraprocedure Start: 05-27-2024 End: 05-27-2024 1 Syringe, Intra-artICUlar, Once, On Thu05/27/24 at 1230, For 1 dose, Intraprocedure 72 hr scopolamine 0.0139 mg/hr transdermal system (1 source) Anticholinergic Start: 02-28-2023 End: 03-03-2023 1 patch, TransDERmal, Administer over 72 Hours, Every 72 hours, First dose on 02/28/23 at 0415, Apply to hairless area of skin behind the ear. sildenafil 100 mg oral tablet (20 sources) Phosphodiesterase 5 Inhibitor Start: 11-26-2023 End: 05-27-2024 sildenafil (Viagra) 100 MG tablet TAKE 1 TAB(S) ORALLY DIRECTED 90 DAYS NOT COVERED BY MEDICARE D 11/26/2023 05/27/2024 Discontinued Start: 06-14-2021 End: 08-10-2023 sildenafil (Viagra) 100 MG t ablet Every 24 hours. 0 06/14/2021 08/10/2023 Discontinued (Therapy completed) Start: 06-11-2021 End: 08-20-2023 sildenafil (Revatio) 20 MG t ablet take 1-5 tablets BY MOUTH NEEDED 0 06/11/2021 08/20/2023 Discontinued (Stop taking at discharge) 50 ml sodium chloride 9 mg/m l injection (20 sources) Start: 06-23-2024 End: 06-23-2024 500 mL, IntraVENous, at 500 mL/hr, Administer over 1 Hours, Once, On Thu06/23/24 at 1105, For 1 dose Start: 05-27-2024 End: 05-28-2024 10 mL, IntraVENous, Every 12 hours scheduled (2 times per day), First dose on Thu05/27/24 at 2100, Phase II/On Unit Start: 05-27-2024 End: 05-28-2024 Start: 05-27-2024 End: 05-28-2024 Start: 10-01-2023 End: 10-01-2023 1,000 mL, IntraVENous, at 1, 000 mL/hr, Administer over 1 Hours, Once, On Thu10/01/23 at 0930, For 1 dose Start: 10-01-2023 End: 10-02-2023 take 125 mL intravenously every hour 125 mL/hr, IntraVENous, Continuous, Starting on Thu10/01/23 at 0930 Start: 09-23-2023 End: 09-25-2023 10 mL, IntraVENous, Every 12 hours scheduled (2 times per day), First dose on Thu09/23/23 at 2100, Phase II/On Unit Start: 09-23-2023 End: 09-25-2023 take 100 mL intravenously every hour as needed, then take 20 mL intravenously every hour as needed 5-250 mL/hr, IntraVENous, PRN, if patient receiving piggyback infusions and maintenance fluids are not ordered OR KVO fluids to protect IV site / prevent frequent line interruptions/ long duration, Starting on Thu09/23/23 at 1407, Phase II/On Unit, For piggyback infusion, administer at same rate as piggyback for a total of 25 mL. Enter 25 mL into dose field and piggyback rate into rate field of order. If piggyback is infusing at a rate less than 100 mL/hr, enter 25 mL into dose field and 100 mL/hr into rate field of order. For KVO fluids, enter rate of 20 mL/hr or less into rate field of order. Start: 09-23-2023 End: 09-25-2023 take 10 mL intravenously once as needed 10 mL, IntraVENous, PRN, line care, Starting on Thu09/23/23 at 1407, Phase II/On Unit, After every IV line use Start: 09-16-2023 End: 09-16-2023 sodium chloride 0.9 % bolus 500 mL Start: 09-16-2023 End: 09-16-2023 sodium chloride 0.9 % infusi on Start: 09-16-2023 End: 09-16-2023 sodium chloride 0.9% (NS) fl ush 10 mL Start: 08-21-2023 End: 08-21-2023 sodium chloride 0.9 % bolus 1,000 mL Start: 03-04-2023 End: 03-04-2023 sodium chloride 0.9 % bolus 1,000 mL Start: 02-15-2023 End: 02-15-2023 sodium chloride 0.9 % infusi on Start: 07-03-2022 End: 07-03-2022 sodium chloride 0.9 % bolus 1,000 mL Start: 12-18-2021 10 mL, IntraVE Nous, EVERY 12 HOURS SCHEDULED (2 times per day), First dose on Thu12/18/21 at 0900, Until Discontinued Start: 12-18-2021 IntraVENous, a t 5-250 mL/hr, PRN, if patient receiving piggyback infusions and maintenance fluids are not ordered OR KVO fluids to protect IV site / prevent frequent line interruptions/ long duration, Starting on Thu12/18/21 at 0139 For piggyback infusion, administer at same rate as piggyback for a total of 25 mL. Enter 25 mL into dose field and piggyback rate into rate field of order. If piggyback is infusing at a rate less than 100 mL/hr, enter 25 mL into dose field and 100 mL/hr into rate field of order. For KVO fluids, enter rate of 20 mL/hr or less into rate field of order. Start: 12-18-2021 take 10 mL intraveno usly once as needed 10 mL, IntraVENous, PRN, Starting on Thu12/18/21 at 0139, Until Discontinued, Line Care, After every IV line use Start: 12-03-2021 take 1 dose intraven ously twice daily 5-40 mL, IntraVENous, EVERY 12 HOURS SCHEDULED (2 times per day), First dose on Thu12/03/21 at 2100, Until Discontinued For Line Patency: Peripheral IV = 5 mL; Midline or Central Line = 10 mL/lumen. If following IV push medication, administer flush at same rate as the IV push. Flush volume is determined by type of infusion therapy being given. For non-viscous solutions use: Peripheral IV = 5 mL Midline or Central Line = 10 mL/lumen For viscous solutions (i.e. blood components, parenteral nutrition, contrast media, or after obtaining blood sample) use: Peripheral IV = 10 mL Midline or Central Line = 20 mL/lumen Post-op Start: 12-03-2021 IntraVENous, a t 5-250 mL/hr, PRN, if patient receiving piggyback infusions and maintenance fluids are not ordered OR KVO fluids to protect IV site / prevent frequent line interruptions/ long duration, Starting on Thu12/03/21 at 1245 For piggyback infusion, administer at same rate as piggyback for a total of 25 mL. Enter 25 mL into dose field and piggyback rate into rate field of order. If piggyback is infusing at a rate less than 100 mL/hr, enter 25 mL into dose field and 100 mL/hr into rate field of order. For KVO fluids, enter rate of 20 mL/hr or less into rate field of order. Post-op Start: 12-03-2021 take 5-40 mL intrave nously once as needed 5-40 mL, IntraVENous, PRN, Starting on Thu12/03/21 at 1245, Until Discontinued, Line Care, After every IV line use For Line Patency: Peripheral IV = 5 mL; Midline or Central Line = 10 mL/lumen. If following IV push medication, administer flush at same rate as the IV push. Flush volume is determined by type of infusion therapy being given. For non-viscous solutions use: Peripheral IV = 5 mL Midline or Central Line = 10 mL/lumen For viscous solutions (i.e. blood components, parenteral nutrition, contrast media, or after obtaining blood sample) use: Peripheral IV = 10 mL Midline or Central Line = 20 mL/lumen Post-op Start: 06-15-2021 End: 06-15-2021 0.9 % sodium chloride bolus Start: 02-11-2021 End: 02-11-2021 0.9 % sodium chloride bolus Start: 01-24-2021 0.9 % sodium c hloride infusion Start: 11-19-2020 End: 11-19-2020 0.9 % sodium chloride bolus Start: 11-19-2020 0.9 % sodium c hloride infusion Start: 11-19-2020 sodium chlorid e flush 0.9 % injection 5-40 mL Start: 10-26-2020 End: 10-26-2020 0.9 % sodium chloride bolus Start: 10-26-2020 0.9 % sodium c hloride infusion Start: 10-26-2020 sodium chlorid e flush 0.9 % injection 5-40 mL Start: 09-29-2020 0.9 % sodium c hloride infusion Start: 09-29-2020 sodium chlorid e flush 0.9 % injection 5-40 mL Start: 09-29-2020 End: 09-29-2020 0.9 % sodium chloride bolus Start: 09-11-2020 take 1 dose intraven ously twice daily 5-40 mL, Intravenous, EVERY 12 HOURS SCHEDULED (2 times per day), First dose on Thu09/11/20 at 2100 For Line Patency: Peripheral IV = 5 mL; Midline or Central Line = 10 mL/lumen. If following IV push medication, administer flush at same rate as the IV push. Flush volume is determined by type of infusion therapy being given. For non-viscous solutions use: Peripheral IV = 5 mL Midline or Central Line = 10 mL/lumen For viscous solutions (i.e. blood components, parenteral nutrition, contrast media, or after obtaining blood sample) use: Peripheral IV = 10 mL Midline or Central Line = 20 mL/lumen Start: 09-11-2020 take 5-40 mL intrave nously once as needed 5-40 mL, Intravenous, PRN, Line Care, After every IV line use, Starting on Thu09/11/20 at 1840 For Line Patency: Peripheral IV = 5 mL; Midline or Central Line = 10 mL/lumen. If following IV push medication, administer flush at same rate as the IV push. Flush volume is determined by type of infusion therapy being given. For non-viscous solutions use: Peripheral IV = 5 mL Midline or Central Line = 10 mL/lumen For viscous solutions (i.e. blood components, parenteral nutrition, contrast media, or after obtaining blood sample) use: Peripheral IV = 10 mL Midline or Central Line = 20 mL/lumen Start: 09-11-2020 take 25 mL intraveno usly every hour as needed 25 mL, Intravenous, at 100 mL/hr, PRN, If patient receiving piggyback infusions without ordered maintenance IV fluids or with frequent/long duration piggyback infusions, Starting on Thu09/11/20 at 1840 Administer at the same rate as the piggyback being infused. Start: 08-22-2020 0.9 % sodium c hloride infusion Start: 08-22-2020 sodium chlorid e flush 0.9 % injection 5-40 mL Start: 07-24-2020 End: 07-27-2020 sodium chloride flush 0.9 % injection 5-40 mL Start: 07-23-2020 take 1 dose intraven ous route twice daily 5-40 mL, Intravenous, EVERY 12 HOURS SCHEDULED (2 times per day), First dose on Thu07/23/20 at 2145 For Line Patency: Peripheral IV = 5 mL; Midline or Central Line = 10 mL/lumen. If following IV push medication, administer flush at same rate as the IV push. Flush volume is determined by type of infusion therapy being given. For non-viscous solutions use: Peripheral IV = 5 mL Midline or Central Line = 10 mL/lumen For viscous solutions (i.e. blood components, parenteral nutrition, contrast media, or after obtaining blood sample) use: Peripheral IV = 10 mL Midline or Central Line = 20 mL/lumen Start: 07-23-2020 take 5-40 mL intrave nous route once as needed 5-40 mL, Intravenous, PRN, Line Care, After every IV line use, Starting 07/23/20 at 2115 For Line Patency: Peripheral IV = 5 mL; Midline or Central Line = 10 mL/lumen. If following IV push medication, administer flush at same rate as the IV push. Flush volume is determined by type of infusion therapy being given. For non-viscous solutions use: Peripheral IV = 5 mL Midline or Central Line = 10 mL/lumen For viscous solutions (i.e. blood components, parenteral nutrition, contrast media, or after obtaining blood sample) use: Peripheral IV = 10 mL Midline or Central Line = 20 mL/lumen Start: 07-23-2020 take 25 mL intraveno us route every hour as needed 25 mL, Intravenous, at 100 mL/hr, PRN, If patient receiving piggyback infusions without ordered maintenance IV fluids or with frequent/long duration piggyback infusions, Starting 07/23/20 at 2115 Administer at the same rate as the piggyback being infused. Start: 07-23-2020 End: 07-23-2020 0.9 % sodium chloride bolus Start: 07-23-2020 End: 07-24-2020 Intravenous, at 50 mL/hr, CONTINUOUS, Starting 07/23/20 at 2145 Start: 06-09-2020 10 mL, Intrave nous, EVERY 12 HOURS SCHEDULED (2 times per day), First dose on 06/09/20 at 0900 Start: 06-08-2020 take 10 mL intraveno us route once as needed 10 mL, Intravenous, PRN, Line Care, After every IV line use, Starting Thu06/08/20 at 2343 Start: 06-08-2020 End: 06-08-2020 0.9 % sodium chloride bolus Start: 06-04-2020 10 mL, Intrave nous, EVERY 12 HOURS SCHEDULED (2 times per day), First dose on Thu06/04/20 at 2100 Start: 06-04-2020 take 10 mL intraveno us route once as needed 10 mL, Intravenous, PRN, Line Care, After every IV line use, Starting Thu06/04/20 at 1418 Start: 04-29-2020 10 mL, Intrave nous, EVERY 12 HOURS SCHEDULED (2 times per day), First dose on Thu04/29/20 at 2100 Start: 04-29-2020 take 10 mL intraveno us route once as needed 10 mL, Intravenous, PRN, Line Care, After every IV line use, Starting Thu04/29/20 at 1512 Start: 04-29-2020 End: 04-29-2020 0.9 % sodium chloride infusi on Start: 04-29-2020 0.9 % sodium c hloride bolus Start: 04-21-2020 End: 04-21-2020 0.9 % sodium chloride bolus sucralfate 1000 mg oral tablet (20 sources) Aluminum Complex Start: 02-28-2023 End: 03-02-2023 sucralfate (Carafate) tablet 1 g Start: 02-15-2023 End: 03-03-2023 take 10 mL by mouth three times daily sucralfate (Carafate) 1 GM/10ML suspension Take 10 mL (1 g) by mouth 3 times daily for 14 days. 414 mL 0 02/15/2023 03/03/2023 Discontinued (Stop taking at discharge) Start: 07-23-2020 take 1 dose by mouth four times daily before mealtime 1 g, Oral, 4 TIMES DAILY BEFORE MEALS & NIGHTLY, First dose on 07/23/20 at 2145 Substituted for Sucralfate suspension. Start: 06-09-2020 1 g, Oral, MIGDALIA RY 6 HOURS SCHEDULED (4 times per day), First dose on 06/09/20 at 0600 Substituted for Sucralfate suspension. Start: 06-06-2020 End: 08-22-2020 take 10 mL by mouth four times daily before mealtime sucralfate (CARAFATE) 1 GM/10ML suspension Take 10 mLs by mouth 4 times daily (before meals and nightly) 1200 mL 3 06/06/2020 08/22/2020 Discontinued (LIST CLEANUP) Start: 06-05-2020 sucralfate (CA RAFATE) 1 GM/10ML suspension 1 g tadalafil 5 mg oral tablet (20 sources) Phosphodiesterase 5 Inhibitor Start: 08-10-2023 End: 12-09-2024 take 1 tablet by mouth once daily tadalafil (Cialis) 5 MG tablet Indications: Benign prostatic hyperplasia with post-void dribbling Take 1 tablet (5 mg) by mouth daily. 90 tablet 3 12/10/2023 09/30/2024 Discontinued (Therapy completed) therapeutic multivitamin-mine rals (Theragran-M) tablet (2 sources) Start: 10-02-2023 End: 10-02-2023 take 1 tablet by mouth once daily 1 tablet, Oral, Daily, First dose on Thu10/02/23 at 0900 therapeutic multivitamin-mine rals 1 tablet (1 source) Start: 12-18-2021 take 1 tablet by mouth once daily 1 tablet, Oral, DAILY, First dose on Thu12/18/21 at 0900, Until Discontinued tiZANidine 4 mg oral tablet (20 sources) Central alpha-2 Adrenergic Agonist Start: 09-23-2023 End: 09-25-2023 take 2 mg by mouth twice daily as needed for muscle spasms 2 mg, Oral, 2 times daily PRN, muscle spasms, Starting on Thu09/23/23 at 1407, Phase II/On Unit Start: 08-24-2023 take 1 tablet by boris twice daily as needed tiZANidine (Zanaflex) 2 MG tablet Take 2 mg by mouth 2 times daily as needed. 08/24/2023 Active End: 08-20-2023 tiZANidine (Zanaflex) 2 MG t ablet every 12 hours. 0 08/20/2023 Discontinued (Stop taking at discharge) torsemide 20 mg oral tablet (20 sources) Loop Diuretic Start: 09-25-2020 End: 08-20-2023 take 1 tablet by mouth once daily torsemide (Demadex) 20 MG tablet Take 20 mg by mouth daily. 0 09/25/2020 08/20/2023 Discontinued (Stop taking at discharge) Start: 08-26-2020 torsemide (Dem adex) 20 MG tablet 20 mg. 0 09/25/2020 Active traMADol hydrochloride 50 mg oral tablet (20 sources) Opioid Agonist Start: 09-30-2023 End: 08-03-2024 traMADol (Ultram) 50 MG tablet every 8 hours. 09/30/2023 08/03/2024 Discontinued (Duplicate order) Start: 09-30-2023 End: 10-29-2023 take 1 tablet by mouth three times daily as needed for pain traMADol (Ultram) 50 MG tablet Take 50 mg by mouth 3 times daily as needed for moderate pain (4-6). 09/30/2023 10/29/2023 Active Start: 08-19-2023 End: 08-20-2023 take 1 tablet by mouth every six hours as needed for pain traMADol (Ultram) tablet 100 mg Start: 03-04-2023 End: 03-04-2023 traMADol (Ultram) tablet 50 mg Start: 07-01-2021 End: 09-25-2023 take 1 tablet by mouth three times daily, then take 1 tablet by mouth every twenty-four hours traMADol ER (Ultram-ER) 300 MG 24 hr tablet Take 300 mg by mouth 3 times daily. 0 07/01/2021 09/25/2023 Discontinued (Stop taking at discharge) Start: 07-01-2021 take 0.5 tablet by m outh twice daily traMADol ER (Ultram-ER) 300 MG 24 hr tablet take 0.5 tablet by mouth twice a day 0 07/01/2021 Active Start: 09-11-2020 End: 09-11-2020 traMADol (ULTRAM) tablet 50 mg Start: 04-29-2020 End: 04-29-2020 traMADol (ULTRAM) tablet 50 mg End: 12-03-2021 take 1 tablet by mouth once daily traMADol (ULTRAM ER) 150 MG extended release tablet Take 150 mg by mouth daily. 0 12/03/2021 Discontinued (Stop Taking at Discharge) triamcinolone acetonide 1 mg/ml topical cream (20 sources) Corticosteroid Start: 06-24-2021 End: 08-20-2023 triamcinolone (Kenalog) 0.1 % cream APPLY TO THE AFFECTED AREAS OF LOWER LEGS TWICE DAILY FOR 2 WEEKS... (REFER TO PRESCRIPTION NOTES). 0 06/24/2021 08/20/2023 Discontinued (Stop taking at discharge) Vancomycin (2 sources) Glycopeptide Antibacterial Start: 06-23-2024 End: 06-23-2024 vitamin b12 0.5 mg sublingual tablet (20 sources) Vitamin B12 Start: 07-17-2021 End: 06-22-2023 take 1 tablet under the tongue once daily B-12 Microlozenge 500 MCG sublingual tablet dissolve 1 tablet under the tongue once daily 0 07/17/2021 06/22/2023 Discontinued (Therapy completed) Start: 07-17-2021 Cyanocobalamin (B-12) 500 MCG SUBL Indications: B12 [address] 1 tablet under the tongue daily 30 tablet 11 07/17/2021 Active take 1 tablet by boris th once daily vitamin B-12 (CYANOCOBALAMIN) 500 MCG tablet Take 500 mcg by mouth daily 0 Active zinc gluconate 50 mg oral tablet (20 sources) End: 10-01-2023 take 1 tablet by mouth once daily zinc gluconate 50 MG tablet Take 1 tablet by mouth daily. 10/01/2023 Discontinued (Therapy completed) Problems Active Problems Problem Classification Problem Date Documented Da te Episodic/Chronic Abdominal hernia (2 sources) Diaphragmatic hernia without obstruction or gangrene; Translations: [Diaphragmatic hernia without obstruction or gangrene] Onset: 2 Episodic Abdominal pain (1 source) Intractable abdominal pain; Translations: [Intractable abdominal pain] Anxiety disorders (3 sources) Anticipatory anxiety; Translations: [Anxiety disorder, unspecified] 08-03-2023 Chronic Cardiac dysrhythmias (2 sources) Unspecified atrial fibrillation; Translations: [Unspecified atrial fibrillation] Onset: 2 Chronic Chronic kidney disease (4 sources) Chronic kidney disease; Translations: [Chronic kidney disease, stage 3a] Onset: 2 Chronic obstructive pulmonary disease and bronchiectasis (20 sources) Mucopurulent chronic bronchitis; Translations: [Mucopurulent chronic bronchitis] Onset: 1 Resolved: 5 12-13-2020 Chronic Coagulation and hemorrhagic disorders (20 sources) Thrombocytopenia, unspecified; Translations: [Thrombocytopenic disorder] Onset: 2 Chronic Conditions associated with dizziness or vertigo (3 sources) Lightheadedness; Translations: [Dizziness and giddiness] Episodic Congestive heart failure; nonhypertensive (20 sources) Congestive heart failure; Translations: [Heart failure, unspecified] Onset: 1 Resolved: 5 02-25-2021 Chronic Coronary atherosclerosis and other heart disease (20 sources) Coronary arteriosclerosis; Translations: [Atherosclerotic heart disease of [place] coronary artery without angina pectoris] Onset: 1 01-29-2015 Chronic Delirium, dementia, and amnestic and other cognitive disorders (2 sources) Dementia with behavioral disturbance; Translations: [Mild dementia with other behavioral disturbance, unspecified dementia type (HCC)] 09-20-2024 Chronic Diabetes mellitus with complications (20 sources) Hyperglycemia due to diabetes mellitus; Translations: [Type 2 diabetes mellitus with hyperglycemia] Onset: 2 Chronic Diabetes mellitus without complication (20 sources) Type 2 diabetes mellitus; Translations: [Type 2 diabetes mellitus without complications] Onset: 1 03-19-2021 Chronic Disorders of lipid metabolism (20 sources) Mixed hyperlipidemia; Translations: [Mixed hyperlipidemia] Onset: 1 Resolved: 1 07-25-2020 Chronic E Codes: Fall (3 sources) Fall; Translations: [Unspecified fall, initial encounter] Onset: 2 Episodic Esophageal disorders (20 sources) Gastroesophageal reflux disease; Translations: [Gastro-esophageal reflux disease without esophagitis] Onset: 1 Chronic Essential hypertension (20 sources) Benign essential hypertension; Translations: [Essential (primary) hypertension] Onset: 5 01-29-2015 Chronic Fever of unknown origin (1 source) Fever; Translations: [Fever, unspecified fever cause] Episodic Gastrointestinal hemorrhage (20 sources) Rectal hemorrhage; Translations: [Lower gastrointestinal hemorrhage] Resolved: 1 06-11-2020 Episodic Hyperplasia of prostate (5 sources) Benign prostatic hyperplasia; Translations: [Benign prostatic hyperplasia with lower urinary tract symptoms] 08-03-2023 Chronic Hypertension with complications and secondary hypertension (6 sources) Hypertensive chronic kidney disease with stage 1 through stage 4 chronic kidney disease, or unspecified chronic kidney disease; Translations: [Hypertensive heart and chronic kidney disease with heart failure and stage 1 through stage 4 chronic kidney disease, or unspecified chronic kidney disease] Onset: 1 Chronic Mycoses (1 source) Candidiasis of skin; Translations: [Candidiasis of skin and nail] 12-01-2022 Episodic Nephritis; nephrosis; renal sclerosis (20 sources) Nephrotic syndrome; Translations: [Membranous glomerulonephritis] Onset: 1 Resolved: 5 06-06-2020 Chronic Nonspecific chest pain (4 sources) Chest pain; Translations: [Chest pain, unspecified] Onset: 2 Episodic Nutritional deficiencies (8 sources) Vitamin D deficiency, unspecified; Translations: [Vitamin D deficiency] Onset: 2 Chronic Occlusion or stenosis of precerebral arteries (20 sources) Bilateral carotid artery occlusion; Translations: [Occlusion and stenosis of bilateral carotid arteries] Onset: 1 09-30-2020 Chronic Osteoarthritis (20 sources) Osteoarthritis of right hip joint; Translations: [Unilateral primary osteoarthritis, right hip] Onset: 5 04-29-2024 Chronic Other acquired deformities (1 source) Lumbar spondylolisthesis; Translations: [Spondylolisthesis, lumbar region] Episodic Other aftercare (2 sources) emt intermediate (current) use of insulin; Translations: [emt intermediate (current) use of insulin] Onset: 2 Episodic Other aftercare (2 sources) skilled nursing (current) use of anticoagulants; Translations: [emt intermediate (current) use of anticoagulants] Onset: 2 Episodic Other aftercare (2 sources) skilled nursing (current) use of aspirin; Translations: [emt intermediate (current) use of aspirin] Onset: 2 Episodic Other aftercare (2 sources) Surgical follow-up; Translations: [Encounter for follow-up examination after completed treatment for conditions other than malignant neoplasm] 09-24-2023 Episodic Other aftercare (5 sources) Prescribed medication regimen behavior finding; Translations: [emt intermediate (current) use of opiate analgesic] 11-23-2024 Episodic Other aftercare (2 sources) emt intermediate (current) use of opiate analgesic; Translations: [skilled nursing (current) use of opiate analgesic] Onset: 5 Episodic Other aftercare (2 sources) Encounter for therapeutic drug level monitoring; Translations: [Encounter for therapeutic drug level monitoring] Onset: 5 Episodic Other circulatory disease (2 sources) Personal history of transient ischemic attack (TIA), and cerebral infarction without residual deficits; Translations: [Prsnl hx of TIA (TIA), and cereb infrc w/o resid deficits] Onset: 2 Episodic Other connective tissue disease (15 sources) History of total hip arthroplasty; Translations: [Presence of right artificial hip joint] 07-20-2024 Chronic Other connective tissue disease (2 sources) Presence of right artificial hip joint; Translations: [Presence of right artificial hip joint] Onset: 5 Chronic Other connective tissue disease (2 sources) Swelling of lower limb; Translations: [Other specified soft tissue disorders] Episodic Other connective tissue disease (1 source) Pain in right lower limb; Translations: [Pain in right leg] Episodic Other connective tissue disease (1 source) Spasm; Translations: [Other muscle spasm] Episodic Other connective tissue disease (1 source) History of cervical spine fusion; Translations: [Arthrodesis status] Episodic Other connective tissue disease (1 source) Cramp in lower limb; Translations: [Cramp and spasm] Episodic Other connective tissue disease (4 sources) Trochanteric bursitis of right hip; Translations: [Trochanteric bursitis, right hip] 07-27-2024 Episodic Other connective tissue disease (2 sources) Iliopsoas bursitis of right hip; Translations: [Other bursitis of hip, right hip] 09-26-2024 Episodic Other diseases of bladder and urethra (20 sources) Disorder of bladder; Translations: [Bladder disorder, unspecified] Onset: 1 09-30-2020 Chronic Other diseases of bladder and urethra (1 source) Spasm of bladder; Translations: [Other specified disorders of bladder] Chronic Other ear and sense organ disorders (1 source) Bilateral hearing loss; Translations: [Unspecified hearing loss, bilateral] 09-30-2024 Chronic Other gastrointestinal disorders (2 sources) Bariatric surgery status; Translations: [Bariatric surgery status] Onset: 2 Episodic Other gastrointestinal disorders (2 sources) History of bypass of stomach; Translations: [Bariatric surgery status] 04-10-2023 Episodic Other gastrointestinal disorders (2 sources) Constipation; Translations: [Constipation, unspecified] 10-01-2023 Episodic Other liver diseases (2 sources) Fatty (change of) liver, not elsewhere classified; Translations: [Fatty (change of) liver, not elsewhere classified] Onset: 2 Chronic Other lower respiratory disease (2 sources) Shortness of breath; Translations: [Shortness of breath] Onset: 2 Episodic Other nervous system disorders (1 source) Difficulty walking; Translations: [Difficulty in walking, not elsewhere classified] Chronic Other nervous system disorders (20 sources) Polyneuropathy; Translations: [Polyneuropathy, unspecified] Onset: 1 Chronic Other nervous system disorders (2 sources) Polyneuropathy, unspecified; Translations: [Polyneuropathy, unspecified] Onset: 2 Chronic Other nervous system disorders (2 sources) Other chronic pain; Translations: [Other chronic pain] Onset: 5 Chronic Other nervous system disorders (2 sources) Postoperative pain ; Translations: [Other acute postprocedural pain] Episodic Other nervous system disorders (2 sources) Finding of hand region; Translations: [Tremor, unspecified] 07-19-2024 Episodic Other non-traumatic joint disorders (2 sources) Pain in right knee; Translations: [Pain in joint, lower leg] Episodic Other non-traumatic joint disorders (1 source) Pain in right hip joint; Translations: [Pain in right hip] Episodic Other non-traumatic joint disorders (20 sources) Hip pain; Translations: [Pain in right hip] Onset: 5 04-01-2024 Episodic Other non-traumatic joint disorders (3 sources) Chronic pain following right total hip arthroplasty; Translations: [Pain in right hip] 09-27-2024 Episodic Other non-traumatic joint disorders (1 source) Pain in right hip; Translations: [Pain in right hip] Onset: 5 Episodic Other nutritional; endocrine; and metabolic disorders (20 sources) Morbid obesity; Translations: [Morbid (severe) obesity due to excess calories] Onset: 5 01-29-2015 Chronic Other nutritional; endocrine; and metabolic disorders (20 sources) Body mass index 40+ - severely obese; Translations: [Morbid (severe) obesity due to excess calories] Onset: 0 Chronic Other nutritional; endocrine; and metabolic disorders (20 sources) Hypoalbuminemia; Translations: [Other disorders of plasma-protein metabolism, not elsewhere classified] Onset: 1 09-30-2020 Chronic Other nutritional; endocrine; and metabolic disorders (2 sources) Morbid (severe) obesity due to excess calories; Translations: [Morbid (severe) obesity due to excess calories] Onset: 2 Chronic Other nutritional; endocrine; and metabolic disorders (2 sources) Body mass index (BMI) 40.0-44.9, adult; Translations: [Body mass index [BMI] 40.0-44.9, adult] Onset: 2 Chronic Other nutritional; endocrine; and metabolic disorders (2 sources) Body mass index (BMI) 45.0-49.9, adult; Translations: [Body mass index [BMI] 45.0-49.9, adult] Onset: 2 Chronic Other nutritional; endocrine; and metabolic disorders (4 sources) Severe obesity; Translations: [Morbid (severe) obesity due to excess calories] 06-22-2023 Chronic Other nutritional; endocrine; and metabolic disorders (20 sources) Excess panniculus of abdomen; Translations: [Localized adiposity] Onset: 4 06-24-2023 Chronic Other nutritional; endocrine; and metabolic disorders (2 sources) Body mass index 30+ - obesity; Translations: [Body mass index (BMI) 36.0-36.9, adult] 08-10-2023 Chronic Other screening for suspected conditions (not mental disorders or infectious disease) (1 source) D-dimer above reference range; Translations: [Other specified abnormal findings of blood chemistry] Episodic Pneumonia (except that caused by tuberculosis or sexually transmitted disease) (1 source) Infective pneumonia; Translations: [Pneumonia due to organism] Episodic Residual codes; unclassified (20 sources) Sleep apnea; Translations: [Sleep apnea, unspecified] Onset: 1 Chronic Residual codes; unclassified (20 sources) Obstructive sleep apnea syndrome; Translations: [Obstructive sleep apnea (adult) (pediatric)] Onset: 1 12-13-2020 Chronic Residual codes; unclassified (2 sources) Sleep apnea, unspecified; Translations: [Sleep apnea, unspecified] Onset: 2 Chronic Residual codes; unclassified (2 sources) Obstructive sleep apnea (adult) (pediatric); Translations: [Obstructive sleep apnea (adult) (pediatric)] Onset: 2 Chronic Residual codes; unclassified (2 sources) Dependence on other enabling machines and devices; Translations: [Dependence on other enabling machines and devices] Onset: 2 Chronic Residual codes; unclassified (2 sources) Patient encounter status; Translations: [Encounter for procedure for purposes other than remedying health state, unspecified] Episodic Residual codes; unclassified (1 source) History of hematuria; Translations: [Personal history of other specified conditions] 09-08-2023 Episodic Residual codes; unclassified (1 source) Postoperative state; Translations: [Other specified postprocedural states] 11-03-2023 Episodic Residual codes; unclassified (8 sources) Amnesia; Translations: [Other amnesia] 07-19-2024 Episodic Spondylosis; intervertebral disc disorders; other back problems (20 sources) Cervical spondylosis; Translations: [Spondylosis without myelopathy or radiculopathy, cervical region] Onset: 5 12-26-2013 Chronic Sprains and strains (1 source) Low back strain; Translations: [Strain of muscle, fascia and tendon of lower back, initial encounter] Episodic Thyroid disorders (3 sources) Hypothyroidism, unspecified; Translations: [Hypothyroidism] Onset: 2 Chronic Transient cerebral ischemia (20 sources) Transient cerebral ischemia; Translations: [Transient cerebral ischemic attack, unspecified] Onset: 1 07-23-2020 Chronic Unclassified (1 source) Personal history of COVID-19; Translations: [Personal history of COVID-19] Onset: 2 Unclassified (3 sources) Prescribed medication regimen behavior finding 11-23-2024 Unclassified (2 sources) Withdrawal Onset: 5 Unclassified (1 source) Unspecified dementia, mild, with other behavioral disturbance (HCC); Translations: [Unspecified dementia, mild, with other behavioral disturbance (HCC)] Onset: 5 Unclassified (1 source) Low back pain, unspecified; Translations: [Low back pain, unspecified] Onset: 5 Unclassified (2 sources) Patient Education; Translations: [Patient Education] Onset: 5 Urinary tract infections (4 sources) Urinary tract infectious disease; Translations: [Urinary tract infection, site not specified] 08-17-2023 Episodic Past or Other Problems Problem Classification Problem Date Documented Da te Episodic/Chronic Abdominal pain (20 sources) Abdominal pain; Translations: [Generalized abdominal pain] Onset: 06-04-2020 Resolved: 05-13-2024 06-06-2020 Episodic Acute and unspecified renal failure (20 sources) Acute injury of kidney; Translations: [Acute kidney failure, unspecified] Onset: 09-11-2020 Resolved: 09-13-2020 Episodic Allergic reactions (4 sources) Radiographic dye allergy status; Translations: [Allergy status to other drugs, medicaments and biological substances status] Onset: 01-24-2021 Episodic Blindness and vision defects (4 sources) Visual hallucinations; Translations: [Visual hallucinations] Onset: 07-19-2024 07-19-2024 Episodic Complications of surgical procedures or medical care (20 sources) Under anesthesia; Translations: [Unintended awareness under general anesthesia during procedure, initial encounter] Onset: 09-15-2023 09-15-2023 Episodic Diabetes mellitus without complication (20 sources) Steroid-induced hyperglycemia; Translations: [Hyperglycemia, unspecified] Onset: 07-24-2020 Resolved: 07-25-2020 07-25-2020 Episodic Diseases of white blood cells (20 sources) Leukocytosis; Translations: [Elevated white blood cell count, unspecified] Onset: 09-12-2020 Resolved: 09-13-2020 Chronic Fluid and electrolyte disorders (20 sources) Metabolic acidosis; Translations: [Acidosis] Onset: 07-24-2020 Resolved: 10-01-2020 07-25-2020 Episodic Genitourinary symptoms and ill-defined conditions (20 sources) Delay when starting to pass urine; Translations: [Hesitancy of micturition] Onset: 09-30-2020 09-30-2020 Episodic Hemorrhoids (20 sources) Internal hemorrhoids; Translations: [Other hemorrhoids] Onset: 06-20-2013 Resolved: 01-29-2015 01-29-2015 Episodic Mood disorders (20 sources) Mood disorders Onset: 07-19-2024 07-19-2024 Nausea and vomiting (20 sources) Nausea and vomiting; Translations: [Nausea with vomiting, unspecified] Resolved: 06-11-2020 06-11-2020 Episodic Nutritional deficiencies (20 sources) Deficiency of multiple nutrient elements; Translations: [Deficiency of multiple nutrient elements] Onset: 12-05-2021 12-05-2021 Episodic Open wounds of extremities (8 sources) Laceration of left lower leg; Translations: [Laceration without foreign body, left lower leg, initial encounter] Onset: 06-23-2024 06-18-2024 Episodic Other and unspecified benign neoplasm (20 sources) History of polyp of colon; Translations: [Personal history of colonic polyps] Onset: 06-21-2013 01-29-2015 Episodic Other connective tissue disease (13 sources) Rotator cuff syndrome; Translations: [Unspecified rotator cuff tear or rupture of unspecified shoulder, not specified as traumatic] Onset: 03-12-2004 Resolved: 04-20-2013 12-26-2013 Episodic Other connective tissue disease (20 sources) Neurological symptom; Translations: [Unspecified symptoms and signs involving the nervous system] Onset: 07-23-2020 07-25-2020 Episodic Other connective tissue disease (20 sources) Recurrent falls ; Translations: [Repeated falls] Onset: 05-10-2024 Resolved: 05-13-2024 Episodic Other connective tissue disease (20 sources) Disorder of rotator cuff; Translations: [Unspecified rotator cuff tear or rupture of unspecified shoulder, not specified as traumatic] Onset: 03-12-2004 Resolved: 04-20-2013 12-26-2013 Episodic Other connective tissue disease (2 sources) Musculoskeletal pain; Translations: [Myalgia, other site] Episodic Other connective tissue disease (20 sources) Pain in lower limb; Translations: [Pain in leg, unspecified] Onset: 05-10-2024 05-10-2024 Episodic Other connective tissue disease (20 sources) Pain of left lower leg; Translations: [Pain in left lower leg] Onset: 06-23-2024 06-23-2024 Episodic Other connective tissue disease (2 sources) Trochanteric bursitis, right hip; Translations: [Trochanteric bursitis, right hip] Onset: 07-27-2024 Episodic Other connective tissue disease (2 sources) Pain in left lower leg; Translations: [Pain in left lower leg] Onset: 06-23-2024 Episodic Other connective tissue disease (2 sources) Other specified soft tissue disorders; Translations: [Other specified soft tissue disorders] Onset: 06-23-2024 Episodic Other diseases of kidney and ureters (20 sources) Personal history of nephrotic syndrome; Translations: [History of nephrotic syndrome] Onset: 07-23-2020 07-24-2020 Episodic Other disorders of stomach and duodenum (2 sources) Disease of stomach and duodenum, unspecified; Translations: [Disease of stomach and duodenum, unspecified] Onset: 01-24-2021 Episodic Other eye disorders (20 sources) Pinguecula; Translations: [Pinguecula, unspecified eye] Onset: 05-21-2004 Resolved: 04-20-2013 12-26-2013 Episodic Other gastrointestinal disorders (20 sources) Diarrhea; Translations: [Diarrhea, unspecified] Onset: 06-11-2020 Resolved: 05-13-2024 06-11-2020 Episodic Other gastrointestinal disorders (2 sources) Heartburn; Translations: [Heartburn] Onset: 03-05-2021 Episodic Other injuries and conditions due to external causes (20 sources) Motion sickness; Translations: [Motion sickness, initial encounter] Onset: 05-24-2024 05-24-2024 Episodic Other lower respiratory disease (20 sources) Dyspnea; Translations: [Shortness of breath] Onset: 07-23-2020 Resolved: 05-13-2024 07-25-2020 Episodic Other nervous system disorders (20 sources) Unable to walk; Translations: [Difficulty in walking, not elsewhere classified] Onset: 09-11-2020 Resolved: 09-13-2020 Chronic Other non-traumatic joint disorders (20 sources) Multiple joint pain; Translations: [Pain in unspecified joint] Onset: 04-20-2013 01-29-2015 Episodic Other non-traumatic joint disorders (5 sources) Pain in right shoulder; Translations: [Pain in joint, shoulder region] Onset: 02-26-2024 02-26-2024 Episodic Other non-traumatic joint disorders (20 sources) Shoulder pain; Translations: [Pain in unspecified shoulder] Onset: 05-10-2024 05-10-2024 Episodic Other nutritional; endocrine; and metabolic disorders (7 sources) Overweight; Translations: [Patient overweight] Onset: 09-20-2003 Resolved: 04-20-2013 11-08-2016 Chronic Other nutritional; endocrine; and metabolic disorders (20 sources) Overweight; Translations: [Overweight] Onset: 09-20-2003 Resolved: 04-20-2013 11-08-2016 Episodic Residual codes; unclassified (20 sources) Localized edema; Translations: [Bilateral lower limb edema] Onset: 07-23-2020 Resolved: 10-01-2020 07-25-2020 Episodic Residual codes; unclassified (20 sources) Insomnia; Translations: [Insomnia, unspecified] Onset: 08-15-2014 Resolved: 09-30-2020 08-15-2014 Episodic Residual codes; unclassified (20 sources) Peripheral edema; Translations: [Edema, unspecified] Onset: 07-25-2020 Resolved: 05-13-2024 07-25-2020 Episodic Residual codes; unclassified (20 sources) H/O: respiratory disease; Translations: [Personal history of other specified conditions] Onset: 09-18-2020 09-18-2020 Episodic Residual codes; unclassified (2 sources) Other amnesia; Translations: [Other amnesia] Onset: 07-19-2024 Episodic Skin and subcutaneous tissue infections (2 sources) Cellulitis; Translations: [Cellulitis, unspecified] Episodic Spondylosis; intervertebral disc disorders; other back problems (20 sources) Low back pain; Translations: [Low back pain] Onset: 03-15-2004 Resolved: 05-13-2024 12-26-2013 Episodic Syncope (20 sources) Syncope; Translations: [Syncope and collapse] Onset: 10-01-2023 Resolved: 05-13-2024 03-04-2023 Episodic Unclassified (1 source) Personal history of COVID-19; Translations: [Personal history of COVID-19] Onset: 12-03-2021 Unclassified (1 source) Unspecified dementia, mild, with other behavioral disturbance (HCC); Translations: [Unspecified dementia, mild, with other behavioral disturbance (HCC)] Onset: 09-20-2024 Unclassified (1 source) Low back pain, unspecified; Translations: [Low back pain, unspecified] Onset: 08-03-2024 Viral infection (20 sources) Acute viral disease; Translations: [Other specified viral infection] Onset: 04-29-2020 Resolved: 05-13-2024 04-29-2020 Episodic Results Test Name Value Interpretation Reference Range Facility COMPLETE URINALYSIS WITH REF BRANDEN TO CULTUREon 02-15-2025 BILIRUBIN, TOTAL PRESENCE IN URINE Negative Normal Negative [facility] Comment on above: Performed By: #### L [id number] ####Cargo Inspector: UMBERTO JHONSON ([id number])[facility] ([facility])[address] Clarity (U) Clear Normal Clear [facility] Comment on above: Performed By: #### L [id number] ####Cargo Inspector: UMBERTO JOHNSON ([id number])[facility] ([facility])[address] [place] [address] Color (U) Light Yellow Normal Lt. Yellow [facility] Comment on above: Performed By: #### L [id number] ####Cargo Inspector: UMBERTO JOHNSON ([id number])[facility] ([facility])[address] [place] [address] GLUCOSE (MG/DL) IN URINE Normal Normal Nor mal (<70) [facility] Comment on above: Performed By: #### L [id number] ####Cargo Inspector: UMBERTO JOHNSON ([id number])[facility] ([facility])[address] [place] [address] HEMOGLOBIN PRESENCE IN URINE Negative Normal Negativ e [facility] Comment on above: Performed By: #### L [id number] ####Cargo Inspector: UMBERTO JOHNSON ([id number])[facility] ([facility])[address] [place] [address] Ketones Ql (U) Negative Normal Negative [facility] Comment on above: Performed By: #### L [id number] ####Cargo Inspector: UMBERTO JOHNSON ([id number])[facility] CENTER ([facility]AB)[address] LEUKOCYTE ESTERASE PRESENCE IN URINE BY TEST STRIP Negative Normal Negative [facility] Comment on above: Performed By: #### L [id number] ####Cargo Inspector: UMBERTO ARAUJOKATHARINATAYLOR ([id number])[facility] ([facility])[address] NITRITE PRESENCE IN URINE Negative Normal Negative [facility] Comment on above: Performed By: #### L [id number] ####Cargo Inspector: UMBERTO ARAUJOMariahTAYLOR ([id number])[facility] ([facility])[address] pH (U) 7.0 [pH] Normal 5.0-8.0 [facility] Comment on above: Performed By: #### L [id number] ####Cargo Inspector: UMBERTO JOHNSON ([id number])[facility] ([facility])[address] Protein (U) [Mass/Vol] Negative Normal Negative [facility] Comment on above: Performed By: #### L [id number] ####Cargo Inspector: UMBERTO ROBLESTAYLOR ([id number])[facility] ([facility])[address] [place] [address] Specific gravity (U) [Rel density] 1.015 Normal 1.005-1.03 0 [facility] Comment on above: Result Comment: SANYA Michael COMMENTS:A specimen with <=10 WBC is not consistent with inflammation. This specimen will not reflex to a urine culture. Performed By: #### L [id number] ####Cargo Inspector: UMBERTO JOHNSON ([id number])[facility] ([facility])[address] [place] [address] [place] UROBILINOGEN (MG/DL) IN URINE Normal Normal Normal (0-1) [facility] Comment on above: Performed By: #### L [id number] ####Cargo Inspector: UMBERTO JOHNSON ([id number])[facility] (SB[facility]AB)[address] ED Nursing Noteon 02-15-2025 ED Nursing Note Call to pharmacy to confirm correct dose, route, and volume of injection. Jeffrey, pharmacist, confirms this is a safe administration. Normal [facility] Urinalysis complete panel (U )on 02-15-2025 Bilirubin Ql (U) Negative Negative mg/dL [facility] Clarity (U) Clear Clear [facility] Health Color (U) Light Yellow Lt. Yellow [facility] Glucose Ql (U) Normal Normal (<70) mg/dL [facility] Hemoglobin Ql (U) Negative Negative mg/dL [facility] Interpretation and review of laboratory results Normal [facility] Ketones (U) [Mass/Vol] Negative Negat emelia mg/dL [facility] Leukocyte esterase Test stri p Ql (U) Negative Negative Caprice/uL [facility] Nitrite Ql (U) Negative Negative [facility] pH (U) 7.0 [pH] 5.0 - 8.0 pH [facility] Protein (U) [Mass/Vol] Negative Negat emelia mg/dL [facility] Specific gravity (U) [Rel density] 1.015 1.005 - 1.030 [facility] Urobilinogen (U) [Mass/Vol] Normal Normal (0-1) mg/dL [facility] A specimen with <=10 WBC is not consistent with inflammation. This specimen will not reflex to a urine culture. [facility] Progress Noteon 02-08-2025 Progress Note Normal [facility] AMB POC DRUG SCREEN 12, LABS OURCEOrdered By: Martín Watson on 02-01-2025 Amphetamine Screen, Urine Negative [facility] Barbiturates Screen Ql (U) Not detected N one Detected [facility] Benzodiazepines Ql (U) Positive Abnormal None Detected [facility] BUPRENORPHINE SCREEN Negative Negative [facility] Cannabinoids Screen (U) [Mass/Vol] Positive [facility] Cocaine Ql (U) Not detected None Detected [facility] FENTANYL SCREEN, URINE [facility] Comment on above: Not tested Interpretation and review of laboratory results Abnormal [facility] Methadone Screen Ql (U) Not detected [facility] Methamphetamine (U) [Mass/Vol] Negative [facility] Methylenedioxymethamphetamin e (U) [Mass/Vol] 0 ng/mL [facility] Opiates Screen Ql (U) Not detected S [facility] oxyCODONE Ql (U) Negative [facility] Phencyclidine Ql (U) Not detected None Detected [facility] TRAMADOL SCREEN, URINE [facility] Comment on above: Not tested Tricyclic antidepressants Screen Ql (U) Positive [facility] Progress Noteon 02-01-2025 Progress Note Normal [facility] 36on 01-31-2025 36 Patient informed Normal [facility] 36on 01-30-2025 36 Normal [facility] 36 Notes faxed on 01/[address] [facility] 36on 01-27-2025 36 Called and spoke to patient informed patient Dr. Fernandez office called got verbal permission to send the office not from Dr. Rojas to Dr. Fernandez explained how we are interventional pain management [facility] [address] [facility] 37on 01-26-2025 37 [place] [facility] [place] [facility] Progress Noteon 01-26-2025 Progress Note Normal [facility] 36on 01-16-2025 36 Scheduled 05/25/25. [facility] 36on 01-12-[address] [facility] Progress Noteon 12-08-[address] [facility] 36on 11-23-[address] [facility] Progress Noteon 11-23-[address] [facility] 36on 10-25-2024 36 Normal [facility] 36on 10-18-2024 36 Spoke to patient. Advised that there are no opennings at this time, and we are still waiting for a schedule for April. [facility] [address] [facility] 36on 2024 36 Left message for Titi that neuropsych schedule is full through the end of the year, and they have not yet released the schedule for 2025. Advised that I will call as appointments come available or when 2025 schedule is open[address] [facility] 36on 10-07-2024 36 Normal [facility] 36on 09-28-[address] Mar on 10/13 for injection Normal [facility] C-reactive proteinon 025 CRP [Mass/Vol] mg/L NINF - 8.0 mg/L [facility] No Panel Informationon 09-28 [facility] Progress Noteon 09-28-2024 Progress Note All looks good Normal [facility] Sedimentation rate, automate don 09-28-2024 ESR (Bld) [Velocity] 11 mm/h < OR = 20 [facility] 36on 09-27-2024 36 Normal [facility] 36 Normal [facility] 36 Name of Caller: Titi Relationship to Patient: Self Symptoms/Concerns: Severe pain shooting from R hip to R knee Provider: Dr. Anderson Practice Name: Ortho Normal [facility] 36 Normal [facility] C-REACTIVE PROTEINon 025 CRP [Mass/Vol] 2.5 mg/L Normal <5.0 [facility] Comment on above: Performed By: #### L [id number] ####Cargo Inspector: UMBERTO JOHNSON ([id number])[facility] (SB[facility])[address] [place] [address] CBC W Auto Differential pane l (Bld)on 09-27-2024 Basophils (Bld) [#/Vol] 0 10*3/uL 0.0 - 0.2 10*3/uL [facility] Basophils/100 WBC (Bld) 0.3 % 0.0 - 2.0 % [facility] Eosinophils (Bld) [#/Vol] 0.1 10*3/uL 0. 0 - 0.5 10*3/uL [facility] Eosinophils/100 WBC (Bld) 0.5 % 0. 0 - 6.0 % [facility] Erythrocyte distribution width (RBC) [Ratio] 13 % 11.5 - 15.0 % [facility] Hematocrit (Bld) [Volume fraction] 38.8 % Low 40.0 - 52.0 % [facility] Hemoglobin (Bld) [Mass/Vol] 12.5 g/dL Low 13.0 - 18.0 g/dL [facility] Immature granulocytes (Bld) [#/Vol] 0 10*3/uL NINF - 0.1 10*3/uL [facility] [employer] Immature granulocytes/100 WB C (Bld) 0.3 % 0.0 - 2.0 % [facility] [employer] Interpretation and review of laboratory results Abnormal [facility] [employer] Lymphocytes (Bld) [#/Vol] 1.4 10*3/uL 1. 0 - 4.3 10*3/uL [facility] [employer] Lymphocytes/100 WBC (Bld) 14.5 % Low 15 .0 - 45.0 % [facility] [employer] MCH (RBC) [Entitic mass] 26.5 pg 26. 0 - 34.0 pg [facility] [employer] MCHC (RBC) [Mass/Vol] 32.2 % 30.5 - 36.0 % [facility] [employer] MCV (RBC) [Entitic vol] 82.2 fL 77.0 - 99.0 fL [facility] [employer] Monocytes (Bld) [#/Vol] 0.7 10*3/uL 0.0 - 0.9 10*3/uL [facility] [employer] Monocytes/100 WBC (Bld) 6.9 % 5.0 - 13.0 % [facility] [employer] Neutrophils (Bld) [#/Vol] 7.3 10*3/uL 1. 8 - 7.5 10*3/uL [facility] [employer] Neutrophils/100 WBC (Bld) 77.5 % 38 .0 - 82.0 % [facility] [employer] Nucleated RBC/100 WBC (Bld) [Ratio] 0 % [facility] [employer] Platelet mean volume (Bld) [Entitic vol] 8.9 fL Low 9.0 - 12.7 fL [facility] [employer] Platelets (Bld) [#/Vol] 147 10*3/uL 140 - 440 10*3/uL [facility] [employer] RBC (Bld) [#/Vol] 4.72 10*6/uL 4.40 - 5.90 10*6/uL [facility] [employer] WBC (Bld) [#/Vol] 9.5 10*3/uL 3.6 - 10.7 10*3/uL [facility] [employer] CBC WITH AUTO DIFFERENTIALon 09-27-2024 Basophils (Bld) [#/Vol] 0.0 10*3/uL Normal 0.0-0.2 [facility] Comment on above: Performed By: #### L [id number], [id number] ####Cargo Inspector: UMBERTO JOHNSON ([id number])[facility] ([facility])[address] Basophils/100 WBC (Bld) 0.3 % Normal 0.0-2.0 [facility] Comment on above: Performed By: #### L [id number], [id number] ####Cargo Inspector: UMBERTO JOHNSON ([id number])[facility] ([facility])[address] Eosinophils (Bld) [#/Vol] 0.1 10*3/uL Normal 0.0-0.5 [facility] Comment on above: Performed By: #### L [id number], [id number] ####Cargo Inspector: UMBERTO JOHNSON ([id number])[facility] ([facility])[address] Eosinophils/100 WBC (Bld) 0.5 % Normal 0.0-6.0 [facility] Comment on above: Performed By: #### L [id number], [id number] ####Cargo Inspector: UMBERTO JOHNSON ([id number])[facility] ([facility])[address] Erythrocyte distribution width (RBC) [Ratio] 13.0 % Normal 11.5-15.0 [facility] Comment on above: Performed By: #### L [id number], [id number] ####Cargo Inspector: UMBERTO JOHNSON ([id number])[facility] ([facility])[address] Hematocrit (Bld) [Volume fraction] 38.8 % Low 40.0-52.0 [facility] Comment on above: Performed By: #### L [id number], [id number] ####Cargo Inspector: UMBERTO JOHNSON ([id number])[facility] ([facility])[address] Hemoglobin (Bld) [Mass/Vol] 12.5 g/dL Low 13.0-18. 0 [facility] Comment on above: Performed By: #### L [id number], [id number] ####Cargo Inspector: UMBERTO JOHNSON ([id number])[facility] [place] ([facility])[address] IMMATURE GRANS % 0.3 % Normal 0.0-2.0 [facility] Comment on above: Performed By: #### L [id number], [id number] ####Cargo Inspector: UMBERTO JOHNSON ([id number])[facility] ([facility])[address] IMMATURE GRANS ABSOLUTE 0.0 10*3/uL Normal <0.1 [facility] Comment on above: Performed By: #### L [id number], [id number] ####Cargo Inspector: UMBERTO JOHNSON ([id number])[facility] ([facility])[address] Lymphocytes (Bld) [#/Vol] 1.4 10*3/uL Normal 1.0-4.3 [facility] Comment on above: Performed By: #### Jordyn [id number], [id number] ####Cargo Inspector: UMBERTO JOHNSON ([id number])[facility] ([facility])[address] Lymphocytes/100 WBC (Bld) 14.5 % Low 15.0-45.0 [facility] Comment on above: Performed By: #### L [id number], [id number] ####Cargo Inspector: UMBERTO JOHNSON ([id number])[facility] [place] ([facility])[address] MCH (RBC) [Entitic mass] 26.5 pg Normal 26.0-34.0 [facility] Comment on above: Performed By: #### L [id number], [id number] ####Cargo Inspector: UMBERTO JOHNSON ([id number])[facility] ([facility])[address] MCHC 32.2 % Normal 30.5-36.0 [facility] Comment on above: Performed By: #### L AB322, [id number] ####Cargo Inspector: UMBERTO JOHNSON ([id number])[facility] [place] ([facility])[address] MCV (RBC) [Entitic vol] 82.2 fL Normal 77.0-99.0 [facility] Comment on above: Performed By: #### L AB322, [id number] ####Cargo Inspector: UMBERTO JOHNSON ([id number])[facility] ([facility])[address] Monocytes (Bld) [#/Vol] 0.7 10*3/uL Normal 0.0-0.9 [facility] Comment on above: Performed By: #### L AB322, [id number] ####Cargo Inspector: UMBERTO JOHNSON ([id number])[facility] [place] ([facility])[address] Monocytes/100 WBC (Bld) 6.9 % Normal 5.0-13.0 [facility] Comment on above: Performed By: #### L AB322, [id number] ####Cargo Inspector: UMBERTO JOHNSON ([id number])[facility] ([facility])[address] NEUTROPHILS ABSOLUTE 7.3 10*3/uL Normal 1.8-7.5 [facility] Comment on above: Performed By: #### L AB322, [id number] ####Cargo Inspector: UMBERTO JOHNSON ([id number])[facility] ([facility])[address] Neutrophils/100 WBC (Bld) 77.5 % Normal 38.0-82.0 [facility] Comment on above: Performed By: #### L AB322, [id number] ####Cargo Inspector: UMBERTO JOHNSON ([id number])[facility] ([facility])[address] NRBC 0.0 /100 WBCs Normal 0.0-2.0 [facility] Comment on above: Performed By: #### L AB322, [id number] ####Cargo Inspector: UMBERTO JOHNSON ([id number])[facility] [place] ([facility])[address] Platelet mean volume (Bld) [Entitic vol] 8.9 fL Low 9.0-12.7 [facility] Comment on above: Performed By: #### L AB322, [id number] ####Cargo Inspector: UMBERTO JOHNSON ([id number])[facility] [place] ([facility]AB)[address] Platelets (Bld) [#/Vol] 147 10*3/uL Normal 140-440 [facility] Comment on above: Performed By: #### Jordyn AB322, [id number] ####Cargo Inspector: UMBERTO JOHNSON ([id number])[facility] [place] ([facility])[address] RBC (Bld) [#/Vol] 4.72 10*6/uL Normal 4.40-5.90 [facility] Comment on above: Performed By: #### L AB322, [id number] ####Cargo Inspector: UMBERTO JOHNSON ([id number])[facility] [place] ([facility])[address] WBC (Bld) [#/Vol] 9.5 10*3/uL Normal 3.6-10.7 [facility] Comment on above: Performed By: #### L AB322, [id number] ####Cargo Inspector: UMBERTO JOHNSON ([id number])[facility] [place] ([facility])[address] CRP [Mass/Vol]on 09-27-2024 Interpretation and review of laboratory results Normal [facility] ED Provider Noteon ED Provider Note Normal [facility] ESR (Bld) [Velocity]on 09-27 Interpretation and review of laboratory results Abnormal [facility] Laboratory - Chemistry and C hemistry - challengeon 09-27-2024 CRP [Mass/Vol] 2.5 mg/L NINF - 5.0 mg/L [facility] Laboratory - Hematology and Cell countson 09-27-2024 ESR (Bld) [Velocity] 24 mm/h High [facility] SEDIMENTATION RATE, AUTOMATE Don 09-27-2024 SEDIMENTATION RATE, ERYTHROCYTE 24 mm/hr High 0-10 [facility] Comment on above: Performed By: #### L [id number], [id number] ####Cargo Inspector: UMBERTO JOHNSON ([id number])[facility] [place] [address] 29on 09-26-2024 29 Addended by: MARIA G JARVIS on: 09/29/2024 12:41 PM Modules accepted: Level of Service Normal [facility] 36on 09-26-2024 36 [employer] message sent [facility] 36 Patient is looking for the RX that doctor was going to prescribe for him. I do not see anything in the chart about a script. Please advise. Normal [facility] 36 LVM to Schedule [facility] Right iliopsoas injection. Wants WP. Dr Mar has openings next week. Normal [facility] [address] [facility] [address] [facility] Progress Noteon 09-26-2024 Progress Note Normal [facility] 37on 09-20-[address] [facility] Progress Noteon 09-20-2024 Progress Note [facility] 36on 09-12-[address] [facility] 36 Reason for Disposition [1] Longstanding difficulty breathing AND [2] not responding to usual therapy Answer Assessment - Initial Assessment Questions . Protocols used: Breathing [id number] Normal [facility] 36on 09-09-2024 36 Normal [facility] 36 Normal [facility] 36 Normal [facility] 36on 08-23-[address] [facility] [address] [facility] 36 CT has been completed Labs have NOT been done yet I left a message on Titi's voicemail that we can move him up. Also he still needs to have his lab work done. Normal [facility] 36 Normal [facility] MR Lumbar spine WO contrasto n 08-23-2024 Impression: 1. At L3-L4 there is mild bilateral neural foraminal narrowing, increased compared to the prior exam. 2. At L4-L5 there is moderate left and mild to moderate right neural foraminal narrowing, increased compared to the prior exam. Report Dictated on Electronically Signed By: Benjamín Denney MD Electronically Signed Date/Time: 08/23/2024 4:11 PM [facility] Patient Name: SOPHIE HICKS : 1965 Exam Date/Time: 08/23/2024 07:23 Procedure: MR LUMBAR SPINE WO CONTRAST Ordering Provider: FERNANDEZ JOSEPH Reason For Exam: lumbago with sciatica right side Examination: MRI lumbar spine Clinical Indication: lumbago with sciatica right side Comparison: September 12, 2020 Findings: Multiplanar multisequence high field strength MRI images were obtained through the lumbar spine without administration of intravenous gadolinium contrast. Five lumbar type vertebra are assumed for purposes of numbering on this examination. The lumbar spine is in normal overall alignment without evidence of spondylolisthesis. L4-L5 disc desiccation. New tiny L1 and L2 inferior endplate Schmorl's nodes. Otherwise normal spinal signal intensity. The conus terminates at a normal T12 level. No abnormal signal is appreciated within the distal cord. T12-L1: No disc bulge or disc protrusion. No central spinal canal stenosis. No neural foraminal narrowing. L1-L2: No disc bulge or disc protrusion. No central spinal canal stenosis. No neural foraminal narrowing. L2-L3: No disc bulge or disc protrusion. No central spinal canal stenosis. No neural foraminal narrowing. L3-L4: Tiny right left neural foraminal disc protrusions. No central spinal canal stenosis. Mild bilateral neural foraminal narrowing, increased compared to the prior exam. L4-L5: Slightly increased size of the 3-4 mm right and left neural foraminal disc osteophyte complexes. Mild facet arthropathy. New/increased moderate left and mild to moderate right neural foraminal narrowing. Lateral recess narrowing. Otherwise no central canal stenosis. L5-S1: No disc bulge or protrusion. Facet arthropathy. [facility] Benjamín Denney MD - 08/23/2024 [facility] Name[facility] 1965 [id number] Exam Date/Time: 08/23/2024 07:23 Procedure: MR LUMBAR SPINE WO CONTRAST Ordering Provider: FERNANDEZ JOSEPH Reason For Exam: lumbago with sciatica right side Examination: MRI lumbar spine Clinical Indication: lumbago with sciatica right side Comparison: September 12, 2020 Findings: Multiplanar multisequence high field strength MRI images were obtained through the lumbar spine without administration of intravenous gadolinium contrast. Five lumbar type vertebra are assumed for purposes of numbering on this examination. The lumbar spine is in normal overall alignment without evidence of spondylolisthesis. L4-L5 disc desiccation. New tiny L1 and L2 inferior endplate Schmorl's nodes. Otherwise normal spinal signal intensity. The conus terminates at a normal T12 level. No abnormal signal is appreciated within the distal cord. T12-L1: No disc bulge or disc protrusion. No central spinal canal stenosis. No neural foraminal narrowing. L1-L2: No disc bulge or disc protrusion. No central spinal canal stenosis. No neural foraminal narrowing. L2-L3: No disc bulge or disc protrusion. No central spinal canal stenosis. No neural foraminal narrowing. L3-L4: Tiny right left neural foraminal disc protrusions. No central spinal canal stenosis. Mild bilateral neural foraminal narrowing, increased compared to the prior exam. L4-L5: Slightly increased size of the 3-4 mm right and left neural foraminal disc osteophyte complexes. Mild facet arthropathy. New/increased moderate left and mild to moderate right neural foraminal narrowing. Lateral recess narrowing. Otherwise no central canal stenosis. L5-S1: No disc bulge or protrusion. Facet arthropathy. IMPRESSION: Impression: 1. At L3-L4 there is mild bilateral neural foraminal narrowing, increased compared to the prior exam. 2. At L4-L5 there is moderate left and mild to moderate right neural foraminal narrowing, increased compared to the prior exam. Report Dictated on Electronically Signed By: Benjamín Denney MD Electronically Signed Date/Time: 08/23/2024 4:11 PM EDT [facility] Radiology Study observation (narrative) [facility] MR Lumbar spine WO contrastO rdered By: Benjamín Denney on 08-23-2024 [facility] Work Phone: CT HEAD WO IV CONTRASTon CT HEAD WO IV CONTRAST Normal [facility] CT Head WO contraston [address] evidence of an acute intracranial abnormality. Report Dictated on Electronically Signed By: Gamaliel Barnes MD Electronically Signed Date/Time: 08/03/2024 11:57 AM EDT [facility] Patient Name: SOPHIE HICKS : 1965 Exam Date/Time: 08/03/2024 08:38 Procedure: CT HEAD WO IV CONTRAST Ordering Provider: SAM KELLY Reason For Exam: Memory loss EXAMINATION: CT HEAD WO IV CONTRAST HISTORY: Memory loss TECHNIQUE: CT head without contrast. Dose reduction was employed with automated exposure control. COMPARISON: Head CT 12/04/2001 RESULT: Acute change: No evidence of an acute intracranial process. Hemorrhage: No evidence of acute intracranial hemorrhage. Mass Lesion / Mass Effect: No evidence of an intracranial mass, extra-axial fluid collection, or significant localized mass effect. Chronic change: None apparent. Parenchyma: There is no significant volume loss for age. Ventricles: Normal caliber and morphology. Other: Small mucous retention cyst/polyp of the right maxillary sinus partially visualized. The calvarium, skull base, remaining imaged paranasal sinuses, mastoids, orbits and extracranial soft tissues are unremarkable. [facility] [employer] [facility] Gamaliel Barnes MD - 08/03/2024 Patient Name: SOPHIE HICKS : 1965 Exam Date/Time: 08/03/2024 08:38 Procedure: CT HEAD WO IV CONTRAST Ordering Provider: SAM KELLY Reason For Exam: Memory loss EXAMINATION: CT HEAD WO IV CONTRAST HISTORY: Memory loss TECHNIQUE: CT head without contrast. Dose reduction was employed with automated exposure control. COMPARISON: Head CT 12/04/2001 RESULT: Acute change: No evidence of an acute intracranial process. Hemorrhage: No evidence of acute intracranial hemorrhage. Mass Lesion / Mass Effect: No evidence of an intracranial mass, extra-axial fluid collection, or significant localized mass effect. Chronic change: None apparent. Parenchyma: There is no significant volume loss for age. Ventricles: Normal caliber and morphology. Other: Small mucous retention cyst/polyp of the right maxillary sinus partially visualized. The calvarium, skull base, remaining imaged paranasal sinuses, mastoids, orbits and extracranial soft tissues are unremarkable. IMPRESSION: No CT evidence of an acute intracranial abnormality. Report Dictated on Electronically Signed By: Gamaliel Barnes MD Electronically Signed Date/Time: 08/03/2024 11:57 AM EDT [facility] Radiology Study observation (narrative) [facility] CT Head WO contrastOrdered B y: Gamaliel Barnes on 08-03-2024 [facility] Work Phone: ED Nursing Noteon 08-03-2024 ED Nursing Note Normal [facility] ED Provider Noteon ED Provider Note Normal [facility] 36on 07-27-2024 36 Noted. Thank you Normal [facility] 36 Called pt and received voice mail. Left pt a voice messages stating we do not do spine injections but this can be discussed during his appointment this afternoon. Normal [facility] 36 Please let the patient know that we do not do spine injections. We can discuss this more at his appointment this afternoon. Normal [facility] 36 Normal [facility] Progress Noteon 07-27-2024 Progress Note Normal [facility] XR Hip - right 3 Viewson Normal appearance of the patient's right total hip arthroplasty. Report Dictated on Electronically Signed By: Eduard Segura MD Electronically Signed Date/Time: 07/27/2024 9:30 PM EDT [facility] Patient Name: SOPHIE HICKS DOB: 1965 Exam Date/Time: 07/27/2024 08:00 Procedure: XR HIP 2 OR 3 VW RIGHT Ordering Provider: JARVIS WILLIAM Reason For Exam: s/p RIGHT GEORGE RIGHT HIP CLINICAL INDICATION: Status post right hip arthroplasty A single AP view of the pelvis followed by AP and lateral views of the right hip were obtained. COMPARISON: 05/27/2024 FINDINGS: A right total hip arthroplasty is present. No fracture, dislocation, or loosening of the arthroplasty is identified. There is no fracture of the bony pelvis. The sacroiliac joints appear grossly normal. No lytic or blastic lesions are seen. The left hip joint space is relatively well-preserved. Brachytherapy seeds are noted. [facility] Eduard Segura MD - 07/27/2024 Patient Name: SOPHIE HICKS : 1965 Exam Date/Time: 07/27/2024 08:00 Procedure: XR HIP 2 OR 3 VW RIGHT Ordering Provider: JARVIS WILLIAM Reason For Exam: s/p RIGHT GEORGE RIGHT HIP CLINICAL INDICATION: Status post right hip arthroplasty A single AP view of the pelvis followed by AP and lateral views of the right hip were obtained. COMPARISON: 05/27/2024 FINDINGS: A right total hip arthroplasty is present. No fracture, dislocation, or loosening of the arthroplasty is identified. There is no fracture of the bony pelvis. The sacroiliac joints appear grossly normal. No lytic or blastic lesions are seen. The left hip joint space is relatively well-preserved. Brachytherapy seeds are noted. IMPRESSION: Normal appearance of the patient's right total hip arthroplasty. Report Dictated on Electronically Signed By: Eduard Segura MD Electronically Signed Date/Time: 07/27/2024 9:30 PM EDT [facility] Radiology Study observation (narrative) [facility] XR Hip - right 3 ViewsOrdere d By: Eduard Segura on 07-27-2024 [facility] 37on 07-19-2024 37 Normal [facility] Progress Noteon 07-19-2024 Progress Note Normal [facility] 36on 07-15-2024 36 Scheduled 07/19/2024. [facility] 36on 07-14-[address] [facility] 36 Normal [facility] 36on 07-13-2024 36 Patient has been scheduled for the IPO. [facility] 36on 07-11-2024 36 Can we call and get him scheduled for his IPO too. He was re-admitted during initial scheduled IPO. Normal [facility] 36 Referral sent as requested. Normal [facility] 36 Normal [facility] 30on 06-30-[address] [facility] [id number] 06-30-[id number] [facility] BASIC METABOLIC PANELon 06-12 Anion gap [Moles/Vol] 10 mmol/L Normal 3-13 [facility] Comment on above: Performed By: #### L [id number] ####Cargo Inspector: UMBERTO JOHNSON ([id number])[facility] (SBHLAB)[address] Calcium [Mass/Vol] 8.2 mg/dL Low 8.8-10.0 [facility] Comment on above: Performed By: #### L AB15 ####Cargo Inspector: UMBERTO JOHNSON ([id number])[facility] (SBHLAB)[address] [place] [address] [place] Chloride [Moles/Vol] 106 mmol/L Normal 98-107 [facility] Comment on above: Performed By: #### L AB15 ####Cargo Inspector: UMBERTO JOHNSON ([id number])[facility] (SBHLAB)[address] [place] [address] [place] CO2 [Moles/Vol] 22 mmol/L Normal 22-29 [facility] Comment on above: Performed By: #### L AB15 ####Cargo Inspector: UMBERTO JOHNSON ([id number])[facility] (SBHLAB)[address] [place] [address] [place] Creatinine [Mass/Vol] 1.00 mg/dL Normal 0.72-1.25 [facility] Comment on above: Performed By: #### L AB15 ####Cargo Inspector: UMBERTO JOHNSON ([id number])[facility] ([facility])[address] [place] [address] [place] GLOMERULAR FILTRATION RATE ML/MIN/1.73 SQ M.PREDICTED 86.2 mL/min/1.73m*2 Normal >60.0 [facility] Comment on above: Result Comment: Calc ulation based on the Chronic Kidney Disease Epidemiology Collaboration (CKD-EPI) equation refit without adjustment for race Performed By: #### L AB15 ####Cargo Inspector: UMBERTO JOHNSON ([id number])[facility] ([facility])[address] Glucose [Mass/Vol] 86 mg/dL Normal 74-100 [facility] Comment on above: Performed By: #### L AB15 ####Cargo Inspector: UMBERTO JOHNSON ([id number])[facility] ([facility])[address] Potassium [Moles/Vol] 4.3 mmol/L Normal 3.5-5.1 [facility] Comment on above: Result Comment: [facility] potassium values may be up to 0.5 mmol/L lower than serum values. Performed By: #### L AB15 ####Cargo Inspector: UMBERTO JOHNSON ([id number])[facility] ([facility] [place] [address] [place] Sodium [Moles/Vol] 138 mmol/L Normal 136-145 [facility] Comment on above: Performed By: #### L AB15 ####Cargo Inspector: UMBERTO JOHNSON ([id number])[facility] ([facility])[address] Urea nitrogen [Mass/Vol] 16 mg/dL Normal 9-23 [facility] Comment on above: Performed By: #### L AB15 ####Cargo Inspector: UMBERTO JOHNSON ([id number])[facility] ([facility])[address] Bacteria identified Aer cx N om (Unsp spec)Ordered By: Delfino Godoy on 06-30-2024 Gram Stain Result Moderate Polymorphonuclear leukocytes per low power field [facility] Gram Stain Result No organisms seen [facility] Interpretation and review of laboratory results Abnormal [facility] PBP2A Positive [facility] Basic metabolic 1998 panelon 06-30-2024 Anion gap [Moles/Vol] 10 mmol/L 3 - 13 mmol/L [facility] Calcium [Mass/Vol] 8.2 mg/dL Low 8.8 - 10. 0 mg/dL [facility] Chloride [Moles/Vol] 106 mmol/L 98 - 10 7 mmol/L [facility] CO2 [Moles/Vol] 22 mmol/L 22 - 29 mmol/L [facility] Creatinine [Mass/Vol] 1 mg/dL 0.72 - 1.25 mg/dL [facility] GFR/1.73 sq M.predicted (S/P/Bld) [Vol rate/Area] 86.2 mL/min - PINF [facility] Comment on above: Calculation based on the Chronic Kidney Disease Epidemiology Collaboration (CKD-EPI) equation refit without adjustment for race Glucose [Mass/Vol] 86 mg/dL 74 - 100 mg/dL [facility] Interpretation and review of laboratory results Abnormal [facility] Potassium [Moles/Vol] 4.3 mmol/L 3.5 - 5.1 mmol/L [facility] Comment on above: Plasma potassium chuy ues may be up to 0.5 mmol/L lower than serum values. Sodium [Moles/Vol] 138 mmol/L 136 - 145 mmol/L [facility] Urea nitrogen [Mass/Vol] 16 mg/dL 9 - 23 mg/dL [facility] CBC (HEMOGRAM)on 06-30-2024 Erythrocyte distribution width (RBC) [Ratio] 12.9 % Normal 11.5-15.0 [facility] Comment on above: Performed By: #### L [id number] ####Cargo Inspector: UMBERTO JOHNSON ([id number])[facility] ([facility])[address] Hematocrit (Bld) [Volume fraction] 33.1 % Low 40.0-52.0 [facility] Comment on above: Performed By: #### L [id number] ####Cargo Inspector: UMBERTO ROBLESTAYLOR ([id number])[facility] CAMPUSSusie SÁNCHEZCHRISTUS ST. VINCENT PHYSICIANS MEDICAL CENTERLala (SBAB)[address] Hemoglobin (Bld) [Mass/Vol] 10.5 g/dL Low 13.0-18. 0 [facility] Comment on above: Performed By: #### L [id number] ####Cargo Inspector: UMBERTO ARAUJOKASEY ([id number])[facility] CAMPUSSusie [place] ([facility])[address] MCH (RBC) [Entitic mass] 27.6 pg Normal 26.0-34.0 [facility] Comment on above: Performed By: #### L [id number] ####Cargo Inspector: UMBERTO ROBLESTAYLOR ([id number])[facility] ([facility])[address] MCHC 31.7 % Normal 30.5-36.0 [facility] Comment on above: Performed By: #### L [id number] ####Cargo Inspector: UMBERTO ROBLESTAYLOR ([id number])[facility] ([facility])[address] MCV (RBC) [Entitic vol] 87.1 fL Normal 77.0-99.0 [facility] Comment on above: Performed By: #### L [id number] ####Cargo Inspector: UMBERTO ROBLESTAYLOR ([id number])[facility] ([facility])[address] Platelet mean volume (Bld) [Entitic vol] 8.7 fL Low 9.0-12.7 [facility] Comment on above: Performed By: #### L [id number] ####Cargo Inspector: UMBERTO JOHNSON ([id number])[facility] ([facility])[address] [place] [address] [place] Platelets (Bld) [#/Vol] 189 10*3/uL Normal 140-440 [facility] Comment on above: Performed By: #### L [id number] ####Cargo Inspector: UMBERTO ARAUJOMariahTAYLOR ([id number])[facility] (SBHLAB)[address] RBC (Bld) [#/Vol] 3.80 10*6/uL Low 4.40-5.90 [facility] Comment on above: Performed By: #### L [id number] ####Cargo Inspector: UMBERTO MARIEECER ([id number])[facility] (SBAB)[address] [place] [address] WBC (Bld) [#/Vol] 6.5 10*3/uL Normal 3.6-10.7 [facility] Comment on above: Performed By: #### L [id number] ####Cargo Inspector: UMBERTO ROBLESTAYLOR ([id number])[facility] ([facility])[address] [place] [address] CBC panel Auto (Bld)on 06-30 Erythrocyte distribution width (RBC) [Ratio] 12.9 % 11.5 - 15.0 % [facility] Hematocrit (Bld) [Volume fraction] 33.1 % Low 40.0 - 52.0 % [facility] Hemoglobin (Bld) [Mass/Vol] 10.5 g/dL Low 13.0 - 18.0 g/dL [facility] Interpretation and review of laboratory results Abnormal [facility] [employer] MCH (RBC) [Entitic mass] 27.6 pg 26. 0 - 34.0 pg [facility] MCHC (RBC) [Mass/Vol] 31.7 % 30.5 - 36.0 % [facility] MCV (RBC) [Entitic vol] 87.1 fL 77.0 - 99.0 fL [facility] [employer] Platelet mean volume (Bld) [Entitic vol] 8.7 fL Low 9.0 - 12.7 fL [facility] Platelets (Bld) [#/Vol] 189 10*3/uL 140 - 440 10*3/uL [facility] RBC (Bld) [#/Vol] 3.8 10*6/uL Low 4.40 - 5.90 10*6/uL [facility] WBC (Bld) [#/Vol] 6.5 10*3/uL 3.6 - 10.7 10*3/uL [facility] Laboratory - Microbiology an d Antimicrobial susceptibilityOrdered By: Delfino Godoy on 06-30-2024 Bacteria identified Aer cx Nom (Unsp spec) Moderate Staphylococcus aureus Abnormal [facility] Comment on above: Methicillin-resistan t Staphylococcus aureus (MRSA) 30on 06-29-2024 30 Normal [facility] [id number] 06-29-2024 [id number] Waiting for ID plan for home antibiotics. Dr Veronica notified pt will be self pay for IV supplies and IV drug(s) if pt needs to go home on home IV antibiotic infusion when discharged. Normal [facility] [id number] 06-29-[id number] [facility] BASIC METABOLIC PANELon 06-11 Anion gap [Moles/Vol] 12 mmol/L Normal 3-13 [facility] Comment on above: Performed By: #### L [id number], [id number], LAB15 ####Cargo Inspector: UMBERTO JOHNSON ([id number])[facility] ([facility])[address] Calcium [Mass/Vol] 8.4 mg/dL Low 8.8-10.0 [facility] Comment on above: Performed By: #### L [id number], [id number], LAB15 ####Cargo Inspector: UMBERTO JOHNSON ([id number])[facility] ([facility])[address] [place] [address] [place] Chloride [Moles/Vol] 106 mmol/L Normal 98-107 [facility] Comment on above: Performed By: #### L [id number], [id number], LAB15 ####Cargo Inspector: UMBERTO JOHNSON ([id number])[facility] ([facility])[address] [place] [address] [place] CO2 [Moles/Vol] 23 mmol/L Normal 22-29 [facility] Comment on above: Performed By: #### L [id number], [id number], LAB15 ####Cargo Inspector: UMBERTO JOHNSON ([id number])[facility] CAMPUSSusie [place] ([facility]HLAB)[address] Creatinine [Mass/Vol] 1.05 mg/dL Normal 0.72-1.25 [facility] Comment on above: Performed By: #### L [id number], [id number], LAB15 ####Cargo Inspector: UMBERTO JOHNSON ([id number])[facility] CAMPUSA BARBCHRISTUS [address] [facility] PHYSICI[facility] MEDICAL CENTERN (SBHLAB)[address] GLOMERULAR FILTRATION RATE ML/MIN/1.73 SQ M.PREDICTED 81.3 mL/min/1.73m*2 Normal >60.0 [facility] Comment on above: Result Comment: Calc ulation based on the Chronic Kidney Disease Epidemiology Collaboration (CKD-EPI) equation refit without adjustment for race Performed By: #### L [id number], [id number], LAB15 ####Cargo Inspector: UMBERTO JOHNSON ([id number])[facility] CAMPUSA BARBCHRIST[address]IC[facility] MED[facility] CENTERN (SBHLAB)[address] Glucose [Mass/Vol] 113 mg/dL High 74-100 [facility] Comment on above: Performed By: #### L [id number], [id number], LAB15 ####Cargo Inspector: UMBERTO JOHNSON ([id number])[facility]AMPUSA BARBCHRISTUS [facility]ERN ([facility])[address] Potassium [Moles/Vol] 3.9 mmol/L Normal 3.5-5.1 [facility] Comment on above: Result Comment: [facility] potassium values may be up to 0.5 mmol/L lower than serum values. Performed By: #### L [id number], [id number], LAB15 ####Cargo Inspector: UMBERTO JOHNSON ([id number])[facility] ([facility])[address] Sodium [Moles/Vol] 141 mmol/L Normal 136-145 [facility] Comment on above: Performed By: #### L [id number], [id number], LAB15 ####Cargo Inspector: UMBERTO JOHNSON ([id number])[facility] ([facility])[address] Urea nitrogen [Mass/Vol] 18 mg/dL Normal 9-23 [facility] Comment on above: Performed By: #### L [id number], [id number], LAB15 ####Cargo Inspector: UMBERTO JOHNSON ([id number])[facility] ([facility])[address] Basic metabolic 1998 panelon 06-29-2024 Anion gap [Moles/Vol] 12 mmol/L 3 - 13 mmol/L [facility] Calcium [Mass/Vol] 8.4 mg/dL Low 8.8 - 10. 0 mg/dL [facility] Chloride [Moles/Vol] 106 mmol/L 98 - 10 7 mmol/L [facility] [employer] CO2 [Moles/Vol] 23 mmol/L 22 - 29 mmol/L [facility] Creatinine [Mass/Vol] 1.05 mg/dL 0.72 - 1.25 mg/dL [facility] GFR/1.73 sq M.predicted (S/P/Bld) [Vol rate/Area] 81.3 mL/min - PINF [facility] Comment on above: Calculation based on the Chronic Kidney Disease Epidemiology Collaboration (CKD-EPI) equation refit without adjustment for race Glucose [Mass/Vol] 113 mg/dL High 74 - 100 mg/dL [facility] Potassium [Moles/Vol] 3.9 mmol/L 3.5 - 5.1 mmol/L [facility] Comment on above: Plasma potassium chuy ues may be up to 0.5 mmol/L lower than serum values. Sodium [Moles/Vol] 141 mmol/L 136 - 145 mmol/L [facility] Urea nitrogen [Mass/Vol] 18 mg/dL 9 - 23 mg/dL [facility] C-REACTIVE PROTEINon 025 CRP [Mass/Vol] 22.1 mg/L High <5.0 [facility] Comment on above: Performed By: #### L [id number], [id number], LAB15 ####Cargo Inspector: UMBERTO ARAUJOMariahTAYLOR ([id number])[facility] ([facility])[address] CBC (HEMOGRAM)on 06-29-2024 Erythrocyte distribution width (RBC) [Ratio] 12.8 % Normal 11.5-15.0 [facility] Comment on above: Performed By: #### L [id number] ####Cargo Inspector: UMBERTO ARAUJOMariahTAYLOR ([id number])[facility] ([facility])[address] Hematocrit (Bld) [Volume fraction] 32.9 % Low 40.0-52.0 [facility] Comment on above: Performed By: #### L [id number] ####Cargo Inspector: UMBERTO ANDER ([id number])[facility] ([facility])[address] [place] [address] Hemoglobin (Bld) [Mass/Vol] 10.5 g/dL Low 13.0-18. 0 [facility] Comment on above: Performed By: #### L [id number] ####Cargo Inspector: UMBERTO JOHNSON ([id number])[facility] ([facility])[address] [place] [address] MCH (RBC) [Entitic mass] 27.7 pg Normal 26.0-34.0 [facility] Comment on above: Performed By: #### L [id number] ####Cargo Inspector: UMBERTO JOHNSON ([id number])[facility] ([facility])[address] [place] [address] MCHC 31.9 % Normal 30.5-36.0 [facility] Comment on above: Performed By: #### L [id number] ####Cargo Inspector: UMBERTO JOHNSON ([id number])[facility] ([facility])[address] [place] [address] MCV (RBC) [Entitic vol] 86.8 fL Normal 77.0-99.0 [facility] Comment on above: Performed By: #### L [id number] ####Cargo Inspector: UMBERTO JOHNSON ([id number])[facility] CAMPUSSusie S[facility]NCHEZ[address] [facility] MED[facility] CENTERN (SBHLAB)[address] Platelet mean volume (Bld) [Entitic vol] 8.7 fL Low 9.0-12.7 [facility] Comment on above: Performed By: #### L [id number] ####Cargo Inspector: UMBERTO JOHNSON ([id number])[facility]AMPUSSusie [facility] [facility]ERN (SBHLAB)[address] Platelets (Bld) [#/Vol] 167 10*3/uL Normal 140-440 [facility] Comment on above: Performed By: #### L [id number] ####Cargo Inspector: UMBERTO JOHNSON ([id number])[facility] ([facility])[address] [place] [address] RBC (Bld) [#/Vol] 3.79 10*6/uL Low 4.40-5.90 [facility] Comment on above: Performed By: #### L [id number] ####Cargo Inspector: UMBERTO JOHNSON ([id number])[facility] ([facility])[address] [place] [address] WBC (Bld) [#/Vol] 5.5 10*3/uL Normal 3.6-10.7 [facility] Comment on above: Performed By: #### L [id number] ####Cargo Inspector: UMBERTO JOHNSON ([id number])[facility] ([facility])[address] [place] [address] CBC panel Auto (Bld)on 06-29 Erythrocyte distribution width (RBC) [Ratio] 12.8 % 11.5 - 15.0 % [facility] Hematocrit (Bld) [Volume fraction] 32.9 % Low 40.0 - 52.0 % [facility] Hemoglobin (Bld) [Mass/Vol] 10.5 g/dL Low 13.0 - 18.0 g/dL [facility] Interpretation and review of laboratory results Abnormal [facility] MCH (RBC) [Entitic mass] 27.7 pg 26. 0 - 34.0 pg [facility] MCHC (RBC) [Mass/Vol] 31.9 % 30.5 - 36.0 % [facility] MCV (RBC) [Entitic vol] 86.8 fL 77.0 - 99.0 fL [facility] Platelet mean volume (Bld) [Entitic vol] 8.7 fL Low 9.0 - 12.7 fL [facility] Platelets (Bld) [#/Vol] 167 10*3/uL 140 - 440 10*3/uL [facility] RBC (Bld) [#/Vol] 3.79 10*6/uL Low 4.40 - 5.90 10*6/uL [facility] WBC (Bld) [#/Vol] 5.5 10*3/uL 3.6 - 10.7 10*3/uL [facility] Consulton 06-29-2024 Consult Normal [facility] Laboratory - Chemistry and C hemistry - challengeon 06-29-2024 Procalcitonin [Mass/Vol] 0.06 ng/mL [facility] - 0.07 ng/mL [facility] CRP [Mass/Vol] 22.1 mg/L High [facility] mg/L [facility] No Panel Informationon 06-29 Interpretation and review of laboratory results Abnormal [facility] Nursing Noteon 06-29-2024 Nursing Note Patient report of redness at the groin area, assessed and noted moisture excoriation on bilateral groin and scrotal area,Dr Castillo notified via secure chat did put an order for nystatin cream.Medication applied on the affected area. Normal [facility] PROCALCITONIN TESTon 025 PROCALCITONIN 0.06 ng/mL Normal <0.07 [facility] Comment on above: Result Comment: SANYA Michael COMMENTS:PCT <0.50 = Low risk of severe sepsis and/or septic shock.PCT >2.00 = High risk of severe sepsis and/or septic shock. Performed By: #### L [id number], [id number], LAB15 ####Cargo Inspector: UMBERTO JOHNSON ([id number])[facility]AMP[facility] [place] (SBHLAB)[address] Procalcitonin [Mass/Vol]on 0 06-29-2024 Interpretation and review of laboratory results Normal [facility] PCT <0.50 = Low risk of severe sepsis and/or septic shock. PCT >2.00 = High risk of severe sepsis and/or septic shock. [facility] Progress Noteon 06-29-2024 Progress Note Normal [facility] Progress Note Normal [facility] Progress Note Normal [facility] Progress Note Normal [facility] Progress Note Normal [facility] 36on 06-28-2024 36 Saw him in house, doing well. Cellulitis improved, hip incision fine. Fu in a couple weeks ok. Normal [facility] 36 Medication already sent in. Cancelling duplicate request. Normal [facility] 36 Medication refilled at this time. Normal [facility] BASIC METABOLIC PANELon 06-11 Anion gap [Moles/Vol] 10 mmol/L Normal 3-13 [facility] Comment on above: Performed By: #### L AB15 ####Cargo Inspector: UMBERTO JOHNSON ([id number])[facility] ([facility])[address] Calcium [Mass/Vol] 8.9 mg/dL Normal 8.8-10.0 [facility] Comment on above: Performed By: #### L AB15 ####Cargo Inspector: UMBERTO JOHNSON ([id number])[facility] (HLAB)[address] Chloride [Moles/Vol] 105 mmol/L Normal 98-107 [facility] Comment on above: Performed By: #### L AB15 ####Cargo Inspector: UMBERTO JOHNSON ([id number])[facility] (SBHL[facility])[address] CO2 [Moles/Vol] 25 mmol/L Normal 22-29 [facility] Comment on above: Performed By: #### L AB15 ####Cargo Inspector: UMBERTO JOHNSON ([id number])[facility] (SB[facility]AB)[address] Creatinine [Mass/Vol] 1.04 mg/dL Normal 0.72-1.25 [facility] Comment on above: Performed By: #### L AB15 ####Cargo Inspector: UMBERTO JOHNSON ([id number])[facility]USA [place] (SBHLAB)[address] [place] [address] [place] GLOMERULAR FILTRATION RATE ML/MIN/1.73 SQ M.PREDICTED 82.2 mL/min/1.73m*2 Normal >60.0 [facility] Comment on above: Result Comment: Calc ulation based on the Chronic Kidney Disease Epidemiology Collaboration (CKD-EPI) equation refit without adjustment for race Performed By: #### L AB15 ####Cargo Inspector: UMBERTO JOHNSON ([id number])[facility] [place] (SBHLAB)[address] Glucose [Mass/Vol] 101 mg/dL High 74-100 [facility] Comment on above: Performed By: #### L AB15 ####Cargo Inspector: UMBERTO JOHNSON ([id number])[facility] [place] (SBHLAB)[address] Potassium [Moles/Vol] 4.0 mmol/L Normal 3.5-5.1 [facility] Comment on above: Result Comment: [facility] potassium values may be up to 0.5 mmol/L lower than serum values. Performed By: #### L AB15 ####Cargo Inspector: UMBERTO JOHNSON ([id number])[facility] [place] (SBHLAB)155 [place] [address] [place] Sodium [Moles/Vol] 140 mmol/L Normal 136-145 [facility] Comment on above: Performed By: #### L AB15 ####Cargo Inspector: UMBERTO JOHNSON ([id number])[facility] [place] (SBHLAB)155 [place] [address] [place] Urea nitrogen [Mass/Vol] 20 mg/dL Normal 9-23 [facility] Comment on above: Performed By: #### L AB15 ####Cargo Inspector: UMBERTO JOHNSON ([id number])[facility] (SBAB)[address] [place] [address] Basic metabolic 1998 panelon 06-28-2024 Anion gap [Moles/Vol] 10 mmol/L 3 - 13 mmol/L [facility] Calcium [Mass/Vol] 8.9 mg/dL 8.8 - 10. 0 mg/dL [facility] Chloride [Moles/Vol] 105 mmol/L 98 - 10 7 mmol/L [facility] CO2 [Moles/Vol] 25 mmol/L 22 - 29 mmol/L [facility] Creatinine [Mass/Vol] 1.04 mg/dL 0.72 - 1.25 mg/dL [facility] GFR/1.73 sq M.predicted (S/P/Bld) [Vol rate/Area] 82.2 mL/min - PINF [facility] Comment on above: Calculation based on the Chronic Kidney Disease Epidemiology Collaboration (CKD-EPI) equation refit without adjustment for race Glucose [Mass/Vol] 101 mg/dL High 74 - 100 mg/dL [facility] Interpretation and review of laboratory results Abnormal [facility] Potassium [Moles/Vol] 4 mmol/L 3.5 - 5.1 mmol/L [facility] Comment on above: Plasma potassium chuy ues may be up to 0.5 mmol/L lower than serum values. Sodium [Moles/Vol] 140 mmol/L 136 - 145 mmol/L [facility] Urea nitrogen [Mass/Vol] 20 mg/dL 9 - 23 mg/dL [facility] CBC (HEMOGRAM)on 06-28-2024 Erythrocyte distribution width (RBC) [Ratio] 12.7 % Normal 11.5-15.0 [facility] Comment on above: Performed By: #### L [id number] ####Cargo Inspector: UMBERTO JOHNSON ([id number])[facility] CAMPUSSusie [place] (SBHLAB)[address] [place] [address] Hematocrit (Bld) [Volume fraction] 35.4 % Low 40.0-52.0 [facility] Comment on above: Performed By: #### L [id number] ####Cargo Inspector: UMBERTO ARAUJOMariahTAYLOR ([id number])[place] (SBHLAB)[address] Hemoglobin (Bld) [Mass/Vol] 11.3 g/dL Low 13.0-18. 0 [facility] Comment on above: Performed By: #### L [id number] ####Cargo Inspector: UMBERTO ROBLESTAYLOR ([id number])[facility] CAMPUSSusie SÁNCHEZCHRISTUS ST[address] [facility]INC[facility] PHYSICIANS MEDICAL CENTERLala (SBHLAB)[address] MCH (RBC) [Entitic mass] 27.9 pg Normal 26.0-34.0 [facility] Comment on above: Performed By: #### L [id number] ####Cargo Inspector: UMBERTO ANDER ([id number])[facility]AMP[facility]usie [place] (SBHLAB)[address] MCHC 31.9 % Normal 30.5-36.0 [facility] Comment on above: Performed By: #### L [id number] ####Cargo Inspector: UMBERTO ARAUJOKASEY ([id number])[facility] CAMPUSSusie SÁNCHEZCHRIST[address] [facility] PHYSICIANS MEDICAL CENTERLala (SBHLAB)[address] MCV (RBC) [Entitic vol] 87.4 fL Normal 77.0-99.0 S [facility] Comment on above: Performed By: #### L [id number] ####Cargo Inspector: UMBERTO JOHNSON ([id number])[facility]AMPUSSusie SÁNCHEZCHRIST[address] [facility] PHYSICIANS MEDICAL CENTERLala (SBHLAB)[address] Platelet mean volume (Bld) [Entitic vol] 8.0 fL Low 9.0-12.7 [facility] Comment on above: Performed By: #### L [id number] ####Cargo Inspector: UMBERTO ROBLESTAYLOR ([phone])[facility]AMPUSSusie S[facility]NCHEZ[address] [facility] PHYSICIANS MEDICAL CENTERLala (SBHLAB)[address] Platelets (Bld) [#/Vol] 178 10*3/uL Normal 140-440 [facility] Comment on above: Performed By: #### L [id number] ####Cargo Inspector: UMBERTO JOHNSON ([id number])[facility]AMPUSSusie SÁNCHEZCHRIST[address] [facility]INC[facility] PHYSICIANS MEDICAL CENTERLala (SBHLAB)[address] [place] [address] RBC (Bld) [#/Vol] 4.05 10*6/uL Low 4.40-5.90 [facility] Comment on above: Performed By: #### L [id number] ####Cargo Inspector: UMBERTO JOHNSON ([id number])[facility]AMPUSSusie [facility] (SBHLAB)[address] [place] [address] WBC (Bld) [#/Vol] 5.8 10*3/uL Normal 3.6-10.7 [facility] Comment on above: Performed By: #### L [id number] ####Cargo Inspector: UMBERTO JOHNSON ([id number])[facility] (SBHLAB)[address] [place] [address] CBC panel Auto (Bld)on 06-28 Erythrocyte distribution width (RBC) [Ratio] 12.7 % 11.5 - 15.0 % [facility] Hematocrit (Bld) [Volume fraction] 35.4 % Low 40.0 - 52.0 % [facility] Hemoglobin (Bld) [Mass/Vol] 11.3 g/dL Low 13.0 - 18.0 g/dL [facility] Interpretation and review of laboratory results Abnormal [facility] MCH (RBC) [Entitic mass] 27.9 pg 26. 0 - 34.0 pg [facility] MCHC (RBC) [Mass/Vol] 31.9 % 30.5 - 36.0 % [facility] MCV (RBC) [Entitic vol] 87.4 fL 77.0 - 99.0 fL [facility] Platelet mean volume (Bld) [Entitic vol] 8 fL Low 9.0 - 12.7 fL [facility] Platelets (Bld) [#/Vol] 178 10*3/uL 140 - 440 10*3/uL [facility] RBC (Bld) [#/Vol] 4.05 10*6/uL Low 4.40 - 5.90 10*6/uL [facility] WBC (Bld) [#/Vol] 5.8 10*3/uL 3.6 - 10.7 10*3/uL [facility] Progress Noteon 06-28-2024 Progress Note Normal [facility] Progress Note Normal [facility] Progress Note [facility] [id number] 06-27-2024 [id number] Normal [facility] [id number] Normal [facility] 36on 06-27-2024 36 Normal [facility] CBC W Auto Differential pane l (Bld)Ordered By: Glory Falcon on 06-27-2024 Basophils (Bld) [#/Vol] 0 10*3/uL 0.0 - 0.2 10*3/uL [facility] Basophils/100 WBC (Bld) 0.7 % 0.0 - 2.0 % [facility] Eosinophils (Bld) [#/Vol] 0.4 10*3/uL 0. 0 - 0.5 10*3/uL [facility] Eosinophils/100 WBC (Bld) 10.6 % High 0. 0 - 6.0 % [facility] Erythrocyte distribution width (RBC) [Ratio] 12.9 % 11.5 - 15.0 % [facility] Hematocrit (Bld) [Volume fraction] 34.4 % Low 40.0 - 52.0 % [facility] Hemoglobin (Bld) [Mass/Vol] 11.1 g/dL Low 13.0 - 18.0 g/dL [facility] Immature granulocytes (Bld) [#/Vol] 0 10*3/uL NINF - 0.1 10*3/uL [facility] Immature granulocytes/100 WB C (Bld) 0.2 % 0.0 - 2.0 % [facility] Interpretation and review of laboratory results Abnormal [facility] Lymphocytes (Bld) [#/Vol] 1 10*3/uL 1. 0 - 4.3 10*3/uL [facility] Lymphocytes/100 WBC (Bld) 25.5 % 15 .0 - 45.0 % [facility] MCH (RBC) [Entitic mass] 28.3 pg 26. 0 - 34.0 pg [facility] MCHC (RBC) [Mass/Vol] 32.3 % 30.5 - 36.0 % [facility] MCV (RBC) [Entitic vol] 87.8 fL 77.0 - 99.0 fL [facility] Monocytes (Bld) [#/Vol] 0.4 10*3/uL 0.0 - 0.9 10*3/uL [facility] Monocytes/100 WBC (Bld) 8.9 % 5.0 - 13.0 % [facility] Neutrophils (Bld) [#/Vol] 2.2 10*3/uL 1. 8 - 7.5 10*3/uL [facility] Neutrophils/100 WBC (Bld) 54.1 % 38 .0 - 82.0 % [facility] Nucleated RBC/100 WBC (Bld) [Ratio] 0 % [facility] Platelet mean volume (Bld) [Entitic vol] 8.4 fL Low 9.0 - 12.7 fL [facility] Platelets (Bld) [#/Vol] 150 10*3/uL 140 - 440 10*3/uL [facility] RBC (Bld) [#/Vol] 3.92 10*6/uL Low 4.40 - 5.90 10*6/uL [facility] WBC (Bld) [#/Vol] 4 10*3/uL 3.6 - 10.7 10*3/uL [facility] CBC WITH AUTO DIFFERENTIALon 06-27-2024 Basophils (Bld) [#/Vol] 0.0 10*3/uL Normal 0.0-0.2 [facility] Comment on above: Performed By: #### L [id number] ####Cargo Inspector: UMBERTO JOHNSON ([phone])[facility] (SBAB)[address] [place] [address] Basophils/100 WBC (Bld) 0.7 % Normal 0.0-2.0 S [facility] Comment on above: Performed By: #### L [id number] ####Cargo Inspector: UMBERTO JOHNSON ([id number])[facility] (SBHLAB)[address] Eosinophils (Bld) [#/Vol] 0.4 10*3/uL Normal 0.0-0.5 [facility] Comment on above: Performed By: #### L [id number] ####Cargo Inspector: UMBERTO JOHNSON ([id number])[facility] [place] (SBHLAB)[address] Eosinophils/100 WBC (Bld) 10.6 % High 0.0-6.0 [facility] Comment on above: Performed By: #### L [id number] ####Cargo Inspector: UMBERTO JOHNSON ([id number])[facility] ([facility] Erythrocyte distribution width (RBC) [Ratio] 12.9 % Normal 11.5-15.0 [facility] Comment on above: Performed By: #### L [id number] ####Cargo Inspector: UMBERTO JOHNSON ([id number])[facility] ([facility])[address] Hematocrit (Bld) [Volume fraction] 34.4 % Low 40.0-52.0 [facility] Comment on above: Performed By: #### L [id number] ####Cargo Inspector: UMBERTO JOHNSON ([id number])[facility] ([facility])[address] Hemoglobin (Bld) [Mass/Vol] 11.1 g/dL Low 13.0-18. 0 [facility] Comment on above: Performed By: #### L [id number] ####Cargo Inspector: UMBERTO JOHNSON ([id number])[facility] ([facility])[address] IMMATURE GRANS % 0.2 % Normal 0.0-2.0 [facility] Comment on above: Performed By: #### L [id number] ####Cargo Inspector: UMBERTO JOHNSON ([id number])[facility] ([facility])[address] IMMATURE GRANS ABSOLUTE 0.0 10*3/uL Normal <0.1 [facility] Comment on above: Performed By: #### L [id number] ####Cargo Inspector: UMBERTO JOHNSON ([id number])[facility] [place] (SBHLAB)[address] Lymphocytes (Bld) [#/Vol] 1.0 10*3/uL Normal 1.0-4.3 [facility] Comment on above: Performed By: #### L [id number] ####Cargo Inspector: UMBERTO JOHNSON ([id number])[facility] [place] (SBHLAB)[address] Lymphocytes/100 WBC (Bld) 25.5 % Normal 15.0-45.0 [facility] Comment on above: Performed By: #### L [id number] ####Cargo Inspector: UMBERTO JOHNSON ([id number])[facility] [place] (SBHLAB)[address] MCH (RBC) [Entitic mass] 28.3 pg Normal 26.0-34.0 [facility] Comment on above: Performed By: #### L [id number] ####Cargo Inspector: UMBERTO JOHNSON ([id number])[facility] [place] (SBHLAB)[address] MCHC 32.3 % Normal 30.5-36.0 [facility] Comment on above: Performed By: #### L [id number] ####Cargo Inspector: UMBERTO JOHNSON ([id number])[facility]AMP[facility]ie [place] (SBHLAB)[address] MCV (RBC) [Entitic vol] 87.8 fL Normal 77.0-99.0 [facility] Comment on above: Performed By: #### L [id number] ####Cargo Inspector: UMBERTO JOHNSON ([id number])[facility] [place] (SBHLAB)[address] [place] [address] [place] Monocytes (Bld) [#/Vol] 0.4 10*3/uL Normal 0.0-0.9 [facility] Comment on above: Performed By: #### L [id number] ####Cargo Inspector: UMBERTO JOHNSON ([id number])[facility] [place] (SBHLAB)[address] Monocytes/100 WBC (Bld) 8.9 % Normal 5.0-13.0 [facility] Comment on above: Performed By: #### L [id number] ####Cargo Inspector: UMBERTO JOHNSON ([id number])[facility] [place] (SBHLAB)[address] NEUTROPHILS ABSOLUTE 2.2 10*3/uL Normal 1.8-7.5 [facility] Comment on above: Performed By: #### L [id number] ####Cargo Inspector: UMBERTO JOHNSON ([id number])[facility] [place] (SBHLAB)[address] Neutrophils/100 WBC (Bld) 54.1 % Normal 38.0-82.0 [facility] Comment on above: Performed By: #### L [id number] ####Cargo Inspector: UMBERTO JOHNSON ([id number])[facility] [place] (SBHLAB)[address] NRBC 0.0 /100 WBCs Normal 0.0-2.0 [facility] Comment on above: Performed By: #### L [id number] ####Cargo Inspector: UMBERTO JOHNSON ([id number])[facility] [place] (SBHLAB)[address] Platelet mean volume (Bld) [Entitic vol] 8.4 fL Low 9.0-12.7 [facility] Comment on above: Performed By: #### L [id number] ####Cargo Inspector: UMBERTO JOHNSON ([id number])[facility] [place] (SBHLAB)[address] [place] [address] [place] Platelets (Bld) [#/Vol] 150 10*3/uL Normal 140-440 [facility] Comment on above: Performed By: #### L [id number] ####Cargo Inspector: UMBERTO JOHNSON ([id number])[facility] [place] (SBHLAB)[address] RBC (Bld) [#/Vol] 3.92 10*6/uL Low 4.40-5.90 [facility] Comment on above: Performed By: #### L [id number] ####Cargo Inspector: UMBERTO JOHNSON ([id number])[facility]USA [facility]B[address] [facility] (SBHLAB)[address] WBC (Bld) [#/Vol] 4.0 10*3/uL Normal 3.6-10.7 [facility] Comment on above: Performed By: #### L [id number] ####Cargo Inspector: UMBERTO JOHNSON ([id number])[facility] (SBHLAB)[address] COMPREHENSIVE METABOLIC PANE Tung 06-27-2024 Albumin [Mass/Vol] 2.8 g/dL Low 3.5-5.0 [facility] Comment on above: Performed By: #### L [id number] ####Cargo Inspector: UMBERTO JOHNSON ([id number])[facility] [facility] (SBHLAB)[address] ALP [Catalytic activity/Vol] 85 U/L Normal 40-150 [facility] Comment on above: Performed By: #### L [id number] ####Cargo Inspector: UMBERTO JOHNSON ([id number])[facility] [facility] (SBHLAB)[address] ALT [Catalytic activity/Vol] 9 U/L Normal <40 [facility] Comment on above: Performed By: #### L AB17 ####Cargo Inspector: UMBERTO JOHNSON ([id number])[facility] [address] [facility] (SBHLAB)[address] Anion gap [Moles/Vol] 10 mmol/L Normal 3-13 [facility] Comment on above: Performed By: #### L [id number] ####Cargo Inspector: UMBERTO JOHNSON ([id number])[facility] [place] (SBHLAB)[address] AST [Catalytic activity/Vol] 25 U/L Normal <34 [facility] Comment on above: Performed By: #### L AB17 ####Cargo Inspector: UMBERTO JOHNSON ([id number])[facility] [place] (SBHLAB)[address] Bilirubin [Mass/Vol] 0.4 mg/dL Normal <1.2 [facility] Comment on above: Performed By: #### L AB17 ####Cargo Inspector: UMBERTO JOHNSON ([id number])[facility] [place] (SBHL[place])[address] Calcium [Mass/Vol] 8.7 mg/dL Low 8.8-10.0 [facility] Comment on above: Performed By: #### L AB17 ####Cargo Inspector: UMBERTO JOHNSON ([id number])[facility] [place] (SBHL[place])[address] Chloride [Moles/Vol] 106 mmol/L Normal 98-107 [facility] Comment on above: Performed By: #### L AB17 ####Cargo Inspector: UMBERTO JOHNSON ([id number])[facility] [place] (SBHLAB)[address] CO2 [Moles/Vol] 26 mmol/L Normal 22-29 [facility] Comment on above: Performed By: #### L [id number] ####Cargo Inspector: UMBERTO JOHNSON ([id number])[facility] [place] (SBHLAB)[address] [place] [address] [place] Creatinine [Mass/Vol] 1.09 mg/dL Normal 0.72-1.25 [facility] Comment on above: Performed By: #### L AB17 ####Cargo Inspector: UMBERTO JOHNSON ([id number])[facility] [place] (SBHLAB)[address] GLOMERULAR FILTRATION RATE ML/MIN/1.73 SQ M.PREDICTED 77.7 mL/min/1.73m*2 Normal >60.0 [facility] Comment on above: Result Comment: Calc ulation based on the Chronic Kidney Disease Epidemiology Collaboration (CKD-EPI) equation refit without adjustment for race Performed By: #### L [id number] ####Cargo Inspector: UMBERTO JOHNSON ([id number])[facility] [place] (SBHLAB)[address] Glucose [Mass/Vol] 98 mg/dL Normal 74-100 [facility] Comment on above: Performed By: #### L AB17 ####Cargo Inspector: UMBERTO JOHNSON ([id number])[facility] [place] (SBHLAB)[address] Potassium [Moles/Vol] 3.9 mmol/L Normal 3.5-5.1 [facility] Comment on above: Result Comment: [facility] potassium values may be up to 0.5 mmol/L lower than serum values. Performed By: #### L AB17 ####Cargo Inspector: UMBERTO JOHNSON ([id number])[facility] [place] (SBHLAB)[address] Protein [Mass/Vol] 6.5 g/dL Normal 6.4-8.3 [facility] Comment on above: Performed By: #### L AB17 ####Cargo Inspector: UMBERTO JOHNSON ([id number])[facility] [place] (SBHLAB)[address] [place] [address] [place] Sodium [Moles/Vol] 142 mmol/L Normal 136-145 [facility] Comment on above: Performed By: #### L AB17 ####Cargo Inspector: UMBERTO JOHNSON ([id number])[facility] [place] (SBHLAB)[address] Urea nitrogen [Mass/Vol] 21 mg/dL Normal 9-23 [facility] Comment on above: Performed By: #### L AB17 ####Cargo Inspector: UMBERTO JOHNSON ([id number])[facility] (SBHLAB)[address] Comprehensive metabolic 1998 panelon 06-27-2024 Albumin [Mass/Vol] 2.8 g/dL Low 3.5 - 5.0 g/dL [facility] ALP [Catalytic activity/Vol] 85 U/L 40 - 150 U/L [facility] ALT [Catalytic activity/Vol] 9 U/L NINF - 40 U/L [facility] Anion gap [Moles/Vol] 10 mmol/L 3 - 13 mmol/L [facility] AST [Catalytic activity/Vol] 25 U/L NINF - 34 U/L [facility] Bilirubin [Mass/Vol] 0.4 mg/dL NINF - 1.2 mg/dL [facility] Calcium [Mass/Vol] 8.7 mg/dL Low 8.8 - 10. 0 mg/dL [facility] Chloride [Moles/Vol] 106 mmol/L 98 - 10 7 mmol/L [facility] CO2 [Moles/Vol] 26 mmol/L 22 - 29 mmol/L [facility] Creatinine [Mass/Vol] 1.09 mg/dL 0.72 - 1.25 mg/dL [facility] GFR/1.73 sq M.predicted (S/P/Bld) [Vol rate/Area] 77.7 mL/min - PINF [facility] Comment on above: Calculation based on the Chronic Kidney Disease Epidemiology Collaboration (CKD-EPI) equation refit without adjustment for race Glucose [Mass/Vol] 98 mg/dL 74 - 100 mg/dL [facility] Interpretation and review of laboratory results Abnormal [facility] Potassium [Moles/Vol] 3.9 mmol/L 3.5 - 5.1 mmol/L [facility] Comment on above: Plasma potassium chuy ues may be up to 0.5 mmol/L lower than serum values. Protein [Mass/Vol] 6.5 g/dL 6.4 - 8.3 g/dL [facility] Sodium [Moles/Vol] 142 mmol/L 136 - 145 mmol/L [facility] Urea nitrogen [Mass/Vol] 21 mg/dL 9 - 23 mg/dL [facility] Progress Noteon 06-27-2024 Progress Note Normal [facility] Progress Note Normal [facility] Progress Note Normal [facility] CBC W Auto Differential pane l (Bld)on 06-26-2024 Basophils (Bld) [#/Vol] 0 10*3/uL 0.0 - 0.2 10*3/uL [facility] Basophils/100 WBC (Bld) 0.7 % 0.0 - 2.0 % [facility] Eosinophils (Bld) [#/Vol] 0.4 10*3/uL 0. 0 - 0.5 10*3/uL [facility] Eosinophils/100 WBC (Bld) 9.5 % High 0. 0 - 6.0 % [facility] Erythrocyte distribution width (RBC) [Ratio] 13 % 11.5 - 15.0 % [facility] Hematocrit (Bld) [Volume fraction] 29.9 % Low 40.0 - 52.0 % [facility] Hemoglobin (Bld) [Mass/Vol] 9.5 g/dL Low 13.0 - 18.0 g/dL [facility] Immature granulocytes (Bld) [#/Vol] 0 10*3/uL NINF - 0.1 10*3/uL [facility] Immature granulocytes/100 WB C (Bld) 0.2 % 0.0 - 2.0 % [facility] Interpretation and review of laboratory results Abnormal [facility] Lymphocytes (Bld) [#/Vol] 0.8 10*3/uL Low 1. 0 - 4.3 10*3/uL [facility] Lymphocytes/100 WBC (Bld) 20 % 15 .0 - 45.0 % [facility] MCH (RBC) [Entitic mass] 27.9 pg 26. 0 - 34.0 pg [facility] MCHC (RBC) [Mass/Vol] 31.8 % 30.5 - 36.0 % [facility] MCV (RBC) [Entitic vol] 87.9 fL 77.0 - 99.0 fL [facility] Monocytes (Bld) [#/Vol] 0.4 10*3/uL 0.0 - 0.9 10*3/uL [facility] Monocytes/100 WBC (Bld) 8.6 % 5.0 - 13.0 % [facility] Neutrophils (Bld) [#/Vol] 2.6 10*3/uL 1. 8 - 7.5 10*3/uL [facility] Neutrophils/100 WBC (Bld) 61 % 38 .0 - 82.0 % [facility] Nucleated RBC/100 WBC (Bld) [Ratio] 0 % [facility] Platelet mean volume (Bld) [Entitic vol] 8.4 fL Low 9.0 - 12.7 fL [facility] Platelets (Bld) [#/Vol] 115 10*3/uL Low 140 - 440 10*3/uL [facility] RBC (Bld) [#/Vol] 3.4 10*6/uL Low 4.40 - 5.90 10*6/uL [facility] WBC (Bld) [#/Vol] 4.2 10*3/uL 3.6 - 10.7 10*3/uL [facility] CBC WITH AUTO DIFFERENTIALon 06-26-2024 Basophils (Bld) [#/Vol] 0.0 10*3/uL Normal 0.0-0.2 [facility] Comment on above: Performed By: #### L [id number] ####Cargo Inspector: UMBERTO JOHNSON ([id number])[facility] [place] (SBHLAB)[address] Basophils/100 WBC (Bld) 0.7 % Normal 0.0-2.0 S [facility] Comment on above: Performed By: #### L [id number] ####Cargo Inspector: UMBERTO JOHNSON ([id number])[facility] [place] ([facility])[address] Eosinophils (Bld) [#/Vol] 0.4 10*3/uL Normal 0.0-0.5 [facility] Comment on above: Performed By: #### L [id number] ####Cargo Inspector: UMBERTO JOHNSON ([id number])[facility] [place] ([facility])[address] [place] [address] [place] Eosinophils/100 WBC (Bld) 9.5 % High 0.0-6.0 [facility] Comment on above: Performed By: #### L [id number] ####Cargo Inspector: UMBERTO JOHNSON ([id number])[facility] [place] ([facility])[address] Erythrocyte distribution width (RBC) [Ratio] 13.0 % Normal 11.5-15.0 [facility] Comment on above: Performed By: #### L [id number] ####Cargo Inspector: UMBERTO JOHNSON ([id number])[facility] (SB[facility])[address] Hematocrit (Bld) [Volume fraction] 29.9 % Low 40.0-52.0 [facility] Comment on above: Performed By: #### L [id number] ####Cargo Inspector: UMBERTO JOHNSON ([id number])[facility] [place] ([facility] Hemoglobin (Bld) [Mass/Vol] 9.5 g/dL Low 13.0-18. 0 [facility] Comment on above: Performed By: #### L [id number] ####Cargo Inspector: UMBERTO JOHNSON ([id number])[facility] ([facility])[address] IMMATURE GRANS % 0.2 % Normal 0.0-2.0 [facility] Comment on above: Performed By: #### L [id number] ####Cargo Inspector: UMBERTO JOHNSON ([id number])[facility] ([facility] IMMATURE GRANS ABSOLUTE 0.0 10*3/uL Normal <0.1 [facility] Comment on above: Performed By: #### L [id number] ####Cargo Inspector: UMBERTO JOHNSON ([id number])[facility] ([facility])[address] Lymphocytes (Bld) [#/Vol] 0.8 10*3/uL Low 1.0-4.3 [facility] Comment on above: Performed By: #### L [id number] ####Cargo Inspector: UMBERTO JOHNSON ([id number])[facility] ([facility])[address] Lymphocytes/100 WBC (Bld) 20.0 % Normal 15.0-45.0 [facility] Comment on above: Performed By: #### L [id number] ####Cargo Inspector: UMBERTO JOHNSON ([id number])[facility] [place] (SBHLAB)[address] MCH (RBC) [Entitic mass] 27.9 pg Normal 26.0-34.0 [facility] Comment on above: Performed By: #### L [id number] ####Cargo Inspector: UMBERTO JOHNSON ([id number])[facility] (SBHLAB)[address] MCHC 31.8 % Normal 30.5-36.0 [facility] Comment on above: Performed By: #### L [id number] ####Cargo Inspector: UMBERTO JOHNSON ([phone])[facility] (SBHLAB)[address] MCV (RBC) [Entitic vol] 87.9 fL Normal 77.0-99.0 [facility] Comment on above: Performed By: #### L [id number] ####Cargo Inspector: UMBERTO JOHNSON ([id number])[facility] (SBHLAB)[address] [place] [address] Monocytes (Bld) [#/Vol] 0.4 10*3/uL Normal 0.0-0.9 [facility] Comment on above: Performed By: #### L [id number] ####Cargo Inspector: UMBERTO JOHNSON ([id number])[facility] (SBHLAB)[address] Monocytes/100 WBC (Bld) 8.6 % Normal 5.0-13.0 [facility] Comment on above: Performed By: #### L [id number] ####Cargo Inspector: UMBERTO JOHNSON ([phone])[facility] (SBHLAB)[address] NEUTROPHILS ABSOLUTE 2.6 10*3/uL Normal 1.8-7.5 [facility] Comment on above: Performed By: #### L [id number] ####Cargo Inspector: UMBERTO JOHNSON ([id number])[facility] [place] (SBHLAB)[address] Neutrophils/100 WBC (Bld) 61.0 % Normal 38.0-82.0 [facility] Comment on above: Performed By: #### L [id number] ####Cargo Inspector: UMBERTO JOHNSON ([id number])[facility] [place] (SBHLAB)[address] NRBC 0.0 /100 WBCs Normal 0.0-2.0 [facility] Comment on above: Performed By: #### L [id number] ####Cargo Inspector: UMBERTO JOHNSON ([id number])[facility] [place] (SBHLAB)[address] Platelet mean volume (Bld) [Entitic vol] 8.4 fL Low 9.0-12.7 [facility] Comment on above: Performed By: #### L [id number] ####Cargo Inspector: UMBERTO JOHNSON ([id number])[facility] [place] (SBHLAB)[address] Platelets (Bld) [#/Vol] 115 10*3/uL Low 140-440 [facility] Comment on above: Performed By: #### L [id number] ####Cargo Inspector: UMBERTO ROBLESTAYLOR ([phone])[facility] [place] (SBHLAB)[address] [place] [address] [place] RBC (Bld) [#/Vol] 3.40 10*6/uL Low 4.40-5.90 [facility] Comment on above: Performed By: #### L [id number] ####Cargo Inspector: UMBERTO JOHNSON ([id number])[facility] [place] (SBHLAB)[address] [place] [address] [place] WBC (Bld) [#/Vol] 4.2 10*3/uL Normal 3.6-10.7 [facility] Comment on above: Performed By: #### L [id number] ####Cargo Inspector: UMBERTO JOHNSON ([id number])[facility] [place]ASHAGILM[place] (SBHLAB)[address] COMPREHENSIVE METABOLIC PANE Tung 06-26-2024 Albumin [Mass/Vol] 2.6 g/dL Low 3.5-5.0 [facility] Comment on above: Performed By: #### L [id number] ####Cargo Inspector: UMBERTO JOHNSON ([id number])[facility] [place] (SBHLAB)[address] ALP [Catalytic activity/Vol] 78 U/L Normal 40-150 [facility] Comment on above: Performed By: #### L [id number] ####Cargo Inspector: UMBERTO JOHNSON ([phone])[facility] (SBHLAB)[address] ALT [Catalytic activity/Vol] 6 U/L Normal <40 [facility] Comment on above: Performed By: #### L [id number] ####Cargo Inspector: UMBERTO JOHNSON ([phone])[facility] (SBHLAB)[address] Anion gap [Moles/Vol] 9 mmol/L Normal 3-13 [facility] Comment on above: Performed By: #### L [id number] ####Cargo Inspector: UMBERTO JOHNSON ([id number])[facility] [place] (SBHLAB)[address] AST [Catalytic activity/Vol] 21 U/L Normal <34 [facility] Comment on above: Performed By: #### L [id number] ####Cargo Inspector: UMBERTO JOHNSON ([id number])[facility] [place] (SBHLAB)[address] Bilirubin [Mass/Vol] 0.5 mg/dL Normal <1.2 [facility] Comment on above: Performed By: #### L [id number] ####Cargo Inspector: UMBERTO JOHNSON ([phone])[facility] [place] (SBHLAB)[address] Calcium [Mass/Vol] 8.5 mg/dL Low 8.8-10.0 [facility] Comment on above: Performed By: #### L [id number] ####Cargo Inspector: UMBERTO JOHNSON ([id number])[facility] [place] (SBHLAB)[address] Chloride [Moles/Vol] 108 mmol/L High 98-107 [facility] Comment on above: Performed By: #### L [id number] ####Cargo Inspector: UMBERTO JOHNSON ([id number])[facility] [place] (SBHLAB)[address] CO2 [Moles/Vol] 23 mmol/L Normal 22-29 [facility] Comment on above: Performed By: #### L [id number] ####Cargo Inspector: UMBERTO JOHNSON ([id number])[facility] [place] (SBHLAB)[address] Creatinine [Mass/Vol] 1.02 mg/dL Normal 0.72-1.25 [facility] Comment on above: Performed By: #### L [id number] ####Cargo Inspector: UMBERTO JOHNSON ([id number])[facility] [place] (SBHLAB)[address] GLOMERULAR FILTRATION RATE ML/MIN/1.73 SQ M.PREDICTED 84.1 mL/min/1.73m*2 Normal >60.0 [facility] Comment on above: Result Comment: Calc ulation based on the Chronic Kidney Disease Epidemiology Collaboration (CKD-EPI) equation refit without adjustment for race Performed By: #### L [id number] ####Cargo Inspector: UMBERTO JOHNSON ([id number])[facility] [place] (SBHLAB)[address] Glucose [Mass/Vol] 90 mg/dL Normal 74-100 [facility] Comment on above: Performed By: #### L [id number] ####Cargo Inspector: UMBERTO JOHNSON ([id number])[facility] (SBHLAB)[address] Potassium [Moles/Vol] 3.8 mmol/L Normal 3.5-5.1 [facility] Comment on above: Result Comment: [facility] potassium values may be up to 0.5 mmol/L lower than serum values. Performed By: #### L [id number] ####Cargo Inspector: UMBERTO JOHNSON ([id number])[facility] ([facility])[address] Protein [Mass/Vol] 6.3 g/dL Low 6.4-8.3 [facility] Comment on above: Performed By: #### L [id number] ####Cargo Inspector: UMBERTO JOHNSON ([id number])[facility] ([facility])[address] Sodium [Moles/Vol] 140 mmol/L Normal 136-145 [facility] Comment on above: Performed By: #### L [id number] ####Cargo Inspector: UMBERTO JOHNSON ([id number])[facility] ([facility])[address] Urea nitrogen [Mass/Vol] 17 mg/dL Normal 9-23 [facility] Comment on above: Performed By: #### L [id number] ####Cargo Inspector: UMBERTO JOHNSON ([id number])[facility] ([facility])[address] [place] [address] [place] CULTURE, AEROBIC BACTERIA WI TH GRAM STAINon 06-26-2024 CULTURE, AEROBIC BACTERIA WITH GRAM STAIN Normal [facility] Comment on above: Performed By: #### L [id number] ####Cargo Inspector: VANESSA BOWLES ([phone])[facility] (SACLAB)[address] [place] [id number] [place] [address] Comprehensive metabolic 1998 panelon 06-26-2024 Albumin [Mass/Vol] 2.6 g/dL Low 3.5 - 5.0 g/dL [facility] ALP [Catalytic activity/Vol] 78 U/L 40 - 150 U/L [facility] ALT [Catalytic activity/Vol] 6 U/L NINF - 40 U/L [facility] Anion gap [Moles/Vol] 9 mmol/L 3 - 13 mmol/L [facility] AST [Catalytic activity/Vol] 21 U/L NINF - 34 U/L [facility] Bilirubin [Mass/Vol] 0.5 mg/dL NINF - 1.2 mg/dL [facility] Calcium [Mass/Vol] 8.5 mg/dL Low 8.8 - 10. 0 mg/dL [facility] Chloride [Moles/Vol] 108 mmol/L High 98 - 10 7 mmol/L [facility] CO2 [Moles/Vol] 23 mmol/L 22 - 29 mmol/L [facility] Creatinine [Mass/Vol] 1.02 mg/dL 0.72 - 1.25 mg/dL [facility] GFR/1.73 sq M.predicted (S/P/Bld) [Vol rate/Area] 84.1 mL/min - PINF [facility] Comment on above: Calculation based on the Chronic Kidney Disease Epidemiology Collaboration (CKD-EPI) equation refit without adjustment for race Glucose [Mass/Vol] 90 mg/dL 74 - 100 mg/dL [facility] Interpretation and review of laboratory results Abnormal [facility] Potassium [Moles/Vol] 3.8 mmol/L 3.5 - 5.1 mmol/L [facility] Comment on above: Plasma potassium chuy ues may be up to 0.5 mmol/L lower than serum values. Protein [Mass/Vol] 6.3 g/dL Low 6.4 - 8.3 g/dL [facility] Sodium [Moles/Vol] 140 mmol/L 136 - 145 mmol/L [facility] Urea nitrogen [Mass/Vol] 17 mg/dL 9 - 23 mg/dL [facility] Nursing Noteon 06-26-2024 Nursing Note Lab called, specimen from left leg culture is missing. soil field technician states will keep looking for it, but was told to re-recollect. Dr. Salomon and Dr. Boss aware. Normal [facility] Progress Noteon 06-26-2024 Progress Note Normal [facility] Normal [facility] CBC W Auto Differential pane l (Bld)Ordered By: Loc Hwang on 06-25-2024 Erythrocyte distribution width (RBC) [Ratio] 13.2 % 11.5 - 15.0 % [facility] Hematocrit (Bld) [Volume fraction] 30.2 % Low 40.0 - 52.0 % [facility] Hemoglobin (Bld) [Mass/Vol] 9.4 g/dL Low 13.0 - 18.0 g/dL [facility] [employer] IPF 1 [facility] MCH (RBC) [Entitic mass] 27.7 pg 26. 0 - 34.0 pg [facility] MCHC (RBC) [Mass/Vol] 31.1 % 30.5 - 36.0 % [facility] MCV (RBC) [Entitic vol] 89.1 fL 77.0 - 99.0 fL [facility] [employer] Platelet mean volume (Bld) [Entitic vol] 8.5 fL Low 9.0 - 12.7 fL [facility] Platelets (Bld) [#/Vol] 111 10*3/uL Low 140 - 440 10*3/uL [facility] RBC (Bld) [#/Vol] 3.39 10*6/uL Low 4.40 - 5.90 10*6/uL [facility] WBC (Bld) [#/Vol] 5.1 10*3/uL 3.6 - 10.7 10*3/uL [facility] CBC WITH AUTO DIFFERENTIALon 06-25-2024 Erythrocyte distribution width (RBC) [Ratio] 13.2 % Normal 11.5-15.0 [facility] Comment on above: Performed By: #### L [id number], [id number] ####Cargo Inspector: UMBERTO JOHNSON ([id number])[facility] ([facility])[address] [place] [address] Hematocrit (Bld) [Volume fraction] 30.2 % Low 40.0-52.0 [facility] Comment on above: Performed By: #### L [id number], [id number] ####Cargo Inspector: UMBERTO JOHNSON ([id number])[facility] [place] (SBHLAB)[address] Hemoglobin (Bld) [Mass/Vol] 9.4 g/dL Low 13.0-18. 0 [facility] Comment on above: Performed By: #### L [id number], [id number] ####Cargo Inspector: UMBERTO JOHNSON ([id number])[facility] CAMPUSSusie [facility] (SBHLAB)[address] IPF 1 Normal [facility] Comment on above: Performed By: #### L [id number], [id number] ####Cargo Inspector: UMBERTO JOHNSON ([id number])[facility] (SBHLAB)[address] MCH (RBC) [Entitic mass] 27.7 pg Normal 26.0-34.0 [facility] Comment on above: Performed By: #### L [id number], [id number] ####Cargo Inspector: UMBERTO JOHNSON ([id number])[facility] (SBHLAB)[address] MCHC 31.1 % Normal 30.5-36.0 [facility] Comment on above: Performed By: #### L [id number], [id number] ####Cargo Inspector: UMBERTO JOHNSON ([id number])[facility] (SBHLAB)[address] MCV (RBC) [Entitic vol] 89.1 fL Normal 77.0-99.0 [facility] Comment on above: Performed By: #### L [id number], [id number] ####Cargo Inspector: UMBERTO JOHNSON ([id number])[facility] (SBHLAB)[address] Platelet mean volume (Bld) [Entitic vol] 8.5 fL Low 9.0-12.7 [facility] Comment on above: Performed By: #### L [id number], [id number] ####Cargo Inspector: UMBERTO JOHNSON ([id number])[facility] [place] (SBHLAB)[address] Platelets (Bld) [#/Vol] 111 10*3/uL Low 140-440 [facility] Comment on above: Performed By: #### L [id number], [id number] ####Cargo Inspector: UMBERTO JOHNSON ([id number])[facility] [place] (SBHLAB)[address] RBC (Bld) [#/Vol] 3.39 10*6/uL Low 4.40-5.90 [facility] Comment on above: Performed By: #### L [id number], [id number] ####Cargo Inspector: UMBERTO JOHNSON ([id number])[facility] [place] (SBHLAB)[address] WBC (Bld) [#/Vol] 5.1 10*3/uL Normal 3.6-10.7 [facility] Comment on above: Performed By: #### L [id number], [id number] ####Cargo Inspector: UMBERTO JOHNSON ([id number])[facility]USA SHASHACHRISTUS [facility] (SBHLAB)[address] COMPREHENSIVE METABOLIC PANE Tung 06-25-2024 Albumin [Mass/Vol] 2.7 g/dL Low 3.5-5.0 [facility] Comment on above: Performed By: #### L [id number] ####Cargo Inspector: UMBERTO JOHNSON ([id number])[facility] [place] (SBHLAB)[address] ALP [Catalytic activity/Vol] 74 U/L Normal 40-150 [facility] Comment on above: Performed By: #### L [id number] ####Cargo Inspector: UMBERTO JOHNSON ([id number])[facility] [place] (SBHLAB)[address] ALT [Catalytic activity/Vol] U/L Normal <40 [facility] Comment on above: Performed By: #### L [id number] ####Cargo Inspector: UMBERTO JOHNSON ([id number])[facility] [place] (SBHLAB)[address] Anion gap [Moles/Vol] 8 mmol/L Normal 3-13 [facility] Comment on above: Performed By: #### L [id number] ####Cargo Inspector: UMBERTO JOHNSON ([id number])[facility] [place] (SBHLAB)[address] AST [Catalytic activity/Vol] 16 U/L Normal <34 [facility] Comment on above: Performed By: #### L [id number] ####Cargo Inspector: UMBERTO JOHNSON ([id number])[facility] [place] (SBHLAB)[address] Bilirubin [Mass/Vol] 0.6 mg/dL Normal <1.2 [facility] Comment on above: Performed By: #### L [id number] ####Cargo Inspector: UMBERTO JOHNSON ([id number])[facility] [place] (SBHLAB)[address] Calcium [Mass/Vol] 8.5 mg/dL Low 8.8-10.0 [facility] Comment on above: Performed By: #### L [id number] ####Cargo Inspector: UMBERTO JOHNSON ([id number])[facility] [place] (SBHLAB)[address] Chloride [Moles/Vol] 109 mmol/L High 98-107 [facility] Comment on above: Performed By: #### L [id number] ####Cargo Inspector: UMBERTO JOHNSON ([id number])[facility] [place] (SBHLAB)[address] [place] [address] [place] CO2 [Moles/Vol] 23 mmol/L Normal 22-29 [facility] Comment on above: Performed By: #### L [id number] ####Cargo Inspector: UMBERTO JOHNSON ([phone])[facility] [place] (SBHLAB)[address] Creatinine [Mass/Vol] 0.98 mg/dL Normal 0.72-1.25 [facility] Comment on above: Performed By: #### L [id number] ####Cargo Inspector: UMBERTO JOHNSON ([id number])[facility] CAMPUSSusie SÁNCHEZCHRISTUS ST[address] VINCENT PHYSICIANS MEDICAL CENTERLala (SBHLAB)[address] [place] [address] [place] GLOMERULAR FILTRATION RATE ML/MIN/1.73 SQ M.PREDICTED 88.3 mL/min/1.73m*2 Normal >60.0 [facility] Comment on above: Result Comment: Calc ulation based on the Chronic Kidney Disease Epidemiology Collaboration (CKD-EPI) equation refit without adjustment for race Performed By: #### L [id number] ####Cargo Inspector: UMBERTO JOHNSON ([id number])[facility] [place] (SBHLAB)[address] Glucose [Mass/Vol] 101 mg/dL High 74-100 [facility] Comment on above: Performed By: #### L [id number] ####Cargo Inspector: UMBERTO JOHNSON ([id number])[facility] (SBHLAB)[address] Potassium [Moles/Vol] 3.7 mmol/L Normal 3.5-5.1 [facility] Comment on above: Result Comment: [facility] potassium values may be up to 0.5 mmol/L lower than serum values. Performed By: #### L [id number] ####Cargo Inspector: UMBERTO JOHNSON ([id number])[facility] CAMPUSSusie [facility] (SBHLAB)[address] [place] [address] [place] Protein [Mass/Vol] 6.1 g/dL Low 6.4-8.3 [facility] Comment on above: Performed By: #### L [id number] ####Cargo Inspector: UMBERTO JOHNSON ([id number])[facility] (SBHLAB)[address] Sodium [Moles/Vol] 140 mmol/L Normal 136-145 [facility] Comment on above: Performed By: #### L [id number] ####Cargo Inspector: UMBERTO ROBLESTAYLOR ([id number])[facility] (SBHLAB)[address] Urea nitrogen [Mass/Vol] 15 mg/dL Normal 9- [facility] Comment on above: Performed By: #### L [id number] ####Cargo Inspector: UMBERTO ROBLESTAYLOR ([id number])[facility] (SBHLAB)[address] Comprehensive metabolic 1998 panelon 06-25-2024 Albumin [Mass/Vol] 2.7 g/dL Low 3.5 - 5.0 g/dL [facility] ALP [Catalytic activity/Vol] 74 U/L 40 - 150 U/L [facility] ALT [Catalytic activity/Vol] U/L NINF - 40 U/L [facility] Anion gap [Moles/Vol] 8 mmol/L 3 - 13 mmol/L [facility] AST [Catalytic activity/Vol] 16 U/L NINF - 34 U/L [facility] Bilirubin [Mass/Vol] 0.6 mg/dL NINF - 1.2 mg/dL [facility] Calcium [Mass/Vol] 8.5 mg/dL Low 8.8 - 10. 0 mg/dL [facility] Chloride [Moles/Vol] 109 mmol/L High 98 - 10 7 mmol/L [facility] CO2 [Moles/Vol] 23 mmol/L 22 - 29 mmol/L [facility] Creatinine [Mass/Vol] 0.98 mg/dL 0.72 - 1.25 mg/dL [facility] GFR/1.73 sq M.predicted (S/P/Bld) [Vol rate/Area] 88.3 mL/min - PINF [facility] Comment on above: Calculation based on the Chronic Kidney Disease Epidemiology Collaboration (CKD-EPI) equation refit without adjustment for race Glucose [Mass/Vol] 101 mg/dL High 74 - 100 mg/dL [facility] Interpretation and review of laboratory results Abnormal [facility] Potassium [Moles/Vol] 3.7 mmol/L 3.5 - 5.1 mmol/L [facility] Comment on above: Plasma potassium chuy ues may be up to 0.5 mmol/L lower than serum values. Protein [Mass/Vol] 6.1 g/dL Low 6.4 - 8.3 g/dL [facility] Sodium [Moles/Vol] 140 mmol/L 136 - 145 mmol/L [facility] Urea nitrogen [Mass/Vol] 15 mg/dL 9 - 23 mg/dL [facility] Laboratory - Chemistry and C hemistry - challengeon 06-25-2024 Glucose [Mass/Vol] 114 mg/dL High 70 - 100 mg/dL [facility] - Coagulationon 0 06-25-2024 PT Coag (Bld) [Time] 12.2 s High 9.0 - 1 2.0 s [facility] - Hematology and Cell countson 06-25-2024 Eosinophils (Bld) [#/Vol] 0.3 10*3/uL 0. 0 - 0.5 10*3/uL [facility] Eosinophils/100 WBC (Bld) 6 % 0 - 6 % [facility] Lymphocytes (Bld) [#/Vol] 0.6 10*3/uL Low 1. 0 - 4.3 10*3/uL [facility] Lymphocytes/100 WBC (Bld) 12 % Low 15 - 45 % [facility] Monocytes (Bld) [#/Vol] 0.2 10*3/uL 0.0 - 0.9 10*3/uL [facility] Monocytes/100 WBC (Bld) 4 % Low 5 - 13 % [facility] Neutrophils (Bld) [#/Vol] 4 10*3/uL 1. 8 - 7.5 10*3/uL [facility] RBC morphology finding Nom (Bld) Normal [facility] Segmented neutrophils/100 WB C (Bld) 78 % 38 - 82 % [facility] MANUAL DIFFERENTIAL (CELLAVI ROSANNA)on 06-25-2024 BAND NEUTROPHILS TOTAL PER COUNTED LEUKOCYTES BY MANUAL COUNT Normal [facility] Comment on above: Performed By: #### L [id number], [id number] ####Cargo Inspector: UMBERTO JOHNSON ([id number])[facility] (SBAB)[address] [place] [address] BASOPHILS TOTAL PER COUNTED LEUKOCYTES BY MANUAL COUNT Normal [facility] Comment on above: Performed By: #### L [id number], [id number] ####Cargo Inspector: UMBERTO JOHNSON ([id number])[facility] [place] (SBHLAB)[address] [place] [address] [place] BLASTS TOTAL PER COUNTED LEUKOCYTES BY MANUAL COUNT Normal [facility] Comment on above: Performed By: #### L [id number], [id number] ####Cargo Inspector: UMBERTO JOHNSON ([id number])[facility] [place] (SBHLAB)[address] [place] [address] [place] EOSINOPHILS (10*3/UL) IN BLOOD-CELLAVISION 0.3 10*3/uL Normal 0.0-0.5 [facility] Comment on above: Performed By: #### L [id number], [id number] ####Cargo Inspector: UMBERTO JOHNSON ([id number])[facility] [place] (SBHLAB)[address] [place] [address] [place] EOSINOPHILS TOTAL PER COUNTE D LEUKOCYTES BY MANUAL COUNT 6 High 0-1 [facility] Comment on above: Performed By: #### L [id number], [id number] ####Cargo Inspector: UMBERTO JOHNSON ([id number])[facility] [place] (SBHLAB)[address] [place] [address] [place] EOSINOPHILS/100 LEUKOCYTES I N BLOOD-CELLAVISION 6 % Normal 0-6 [facility] Comment on above: Performed By: #### L [id number], [id number] ####Cargo Inspector: UMBERTO JOHNSON ([id number])[facility] [place] (SBHLAB)[address] [place] [address] [place] LYMPHOCYTES (10*3/UL) IN BLOOD-CELLAVISION 0.6 10*3/uL Low 1.0-4.3 [facility] Comment on above: Performed By: #### L [id number], [id number] ####Cargo Inspector: UMBERTO JOHNSON ([id number])[facility] [place] ([facility])[address] [place] [address] [place] LYMPHOCYTES TOTAL PER COUNTE D LEUKOCYTES BY MANUAL COUNT 12 Normal [facility] Comment on above: Performed By: #### L [id number], [id number] ####Cargo Inspector: UMBERTO JOHNSON ([id number])[facility] [place] ([facility])[address] [place] [address] [place] LYMPHOCYTES/100 LEUKOCYTES I N BLOOD-CELLAVISION 12 % Low 15-45 [facility] Comment on above: Performed By: #### L [id number], [id number] ####Cargo Inspector: UMBERTO JOHNSON ([id number])[facility] [place] ([facility])[address] [place] [address] [place] METAMYELOCYTES TOTAL PER COUNTED LEUKOCYTES BY MANUAL COUNT Normal [facility] Comment on above: Performed By: #### L [id number], [id number] ####Cargo Inspector: UMBERTO ROBLESTAYLOR ([id number])[facility] [place] ([facility])[address] [place] [address] [place] MONOCYTES (10*3/UL) IN BLOOD-CELLAVISION 0.2 10*3/uL Normal 0.0-0.9 [facility] Comment on above: Performed By: #### L [id number], [id number] ####Cargo Inspector: UMBERTO JOHNSON ([id number])[facility] [place] ([facility])[address] [place] [address] [place] MONOCYTES TOTAL PER COUNTED LEUKOCYTES BY MANUAL COUNT 4 Normal [facility] Comment on above: Performed By: #### L [id number], [id number] ####Cargo Inspector: UMBERTO JOHNSON ([id number])[facility] [place] ([facility])[address] [place] [address] [place] MONOCYTES/100 LEUKOCYTES IN BLOOD-LUCY 4 % Low 5-13 [facility] Comment on above: Performed By: #### L [id number], [id number] ####Cargo Inspector: UMBERTO JOHNSON ([id number])[facility] [place] ([facility])[address] [place] [address] [place] MYELOCYTES COUNTED BY MANUAL COUNT Normal [facility] Comment on above: Performed By: #### L [id number], [id number] ####Cargo Inspector: UMBERTO ROBLESTAYLOR ([id number])[facility] [place] ([facility])[address] [place] [address] [place] NEUTROPHILS TOTAL PER COUNTE D LEUKOCYTES BY MANUAL COUNT 78 Normal [facility] Comment on above: Performed By: #### L [id number], [id number] ####Cargo Inspector: UMBERTO JOHNSON ([phone])[facility] [place] (SBHL[facility])[address] [place] [address] [place] PROMYELOCYTES TOTAL PER COUNTED LEUKOCYTES BY MANUAL COUNT [facility] Comment on above: Performed By: #### L [id number], [id number] ####Cargo Inspector: UMBERTO ROBLESTAYLOR ([phone])[facility] [place] (SB[place])[address] [place] [address] [place] RBC MORPHOLOGY IN BLOOD Normal Normal [facility] Comment on above: Performed By: #### L [id number], [id number] ####Cargo Inspector: UMBERTO ROBLESTAYLOR ([phone])[facility] [place] ([place])[address] [place] [address] [place] SEGMENTED NEUTROPHILS (10*3/UL) IN BLOOD-CELLAVISION 4.0 10*3/uL Normal 1.8-7.5 [facility] Comment on above: Performed By: #### L [id number], [id number] ####Cargo Inspector: UMBERTO JOHNSON ([phone])[facility] [place] ([place])[address] [place] [address] [place] SEGMENTED NEUTROPHILS/100 LEUKOCYTES-CE 78 % Normal 38-82 [facility] Comment on above: Performed By: #### L [id number], [id number] ####Cargo Inspector: UMBERTO JOHNSON ([phone])[facility] [place] ([place])[address] [place] [address] [place] UNCLASSIFIED CELLS TOTAL PER COUNTED LEUKOCYTES BY MANUAL COUNT [facility] Comment on above: Performed By: #### L [id number], [id number] ####Cargo Inspector: UMBERTO JOHNSON ([phone])[facility] (SBHLAB)[address] VARIANT LYMPHOCYTES TOTAL PE R COUNTED LEUKOCYTES BY MANUAL COUNT Normal [facility] Comment on above: Performed By: #### L [id number], [id number] ####Cargo Inspector: UMBERTO JOHNSON ([id number])[facility] (SBHLAB)[address] No Panel Informationon 06-25 Interpretation and review of laboratory results Abnormal [facility] Performed by: [facility], [address] [address] CLIA ID: [id number] [facility] Health Atypical Lymphocytes Manual [facility] Health Bands Manual [facility] Health Basophils [facility] Blasts Manual [facility] Healt h Eosinophils Manual 6 High 0 - 1 [facility] Health Lymphocytes Manual 12 [facility] Health Metamyelocytes Manual [facility] Monocytes Manual 4 [facility] He alth Myelocytes Manual [facility] H ealth Neutrophils Manual 78 [facility] Promyelocytes Manual [facility] Unclassified Cells, Manual [facility] No Panel InformationOrdered By: Loc Hwang on 06-25-2024 Interpretation and review of laboratory results Abnormal [facility] PROTHROMBIN TIMEon INR Coag (PPP) [Relative time] 1.1 {INR} Normal 0.9-1.1 [facility] Comment on above: Result Comment: Pietro mmended Anticoagulant Therapy: SEE BELOW----- INR of 2.0 - 3.0 : - Prophylaxis of Venous Thrombosis (high-risk surgery) - Treatment of Venous Thrombosis - Treatment of Pulmonary Embolism (Includes tissue heart valves, Acute Myocardial Infarction to prevent systemic embolism, Valvular Heart Disease, and Atrial Fibrillation)----- INR of 2.5 - 3.5 : - Mechanical Prosthetic Valves (high risk) - If oral anticoagulant therapy is used to prevent Myocardial Infarction Performed By: #### L [id number] ####Cargo Inspector: UMBERTO JOHNSON ([phone])[facility] (SBHLAB)[address] PT Coag (PPP) [Time] 12.2 s High 9.0-12.0 [facility] Comment on above: Performed By: #### L [id number] ####Cargo Inspector: UMBERTO JOHNSON ([phone])[facility] [place] [address] PT Coag (Bld) [Time]on 06-25 INR Coag (PPP) [Relative time] 1.1 {INR} 0.9 - 1.1 [facility] Comment on above: Recommended Anticoag ulant Therapy: SEE BELOW ----- INR of 2.0 - 3.0 : - Prophylaxis of Venous Thrombosis (high-risk surgery) - Treatment of Venous Thrombosis - Treatment of Pulmonary Embolism (Includes tissue heart valves, Acute Myocardial Infarction to prevent systemic embolism, Valvular Heart Disease, and Atrial Fibrillation) ----- INR of 2.5 - 3.5 : - Mechanical Prosthetic Valves (high risk) - If oral anticoagulant therapy is used to prevent Myocardial Infarction Interpretation and review of laboratory results Abnormal [facility] Progress Noteon 06-25-2024 Progress Note Normal [facility] Progress Note Normal [facility] 30on 06-24-2024 30 Normal [facility] [id number] 06-24-2024 [id number] Normal [facility] [id number] 06-24-2024 [id number] Normal [facility] CBC W Auto Differential pane l (Bld)Ordered By: iDck Estrada on 06-24-2024 Erythrocyte distribution width (RBC) [Ratio] 13.5 % 11.5 - 15.0 % [facility] Hematocrit (Bld) [Volume fraction] 30.5 % Low 40.0 - 52.0 % [facility] Hemoglobin (Bld) [Mass/Vol] 9.7 g/dL Low 13.0 - 18.0 g/dL [facility] IPF 1 [facility] MCH (RBC) [Entitic mass] 28.1 pg 26. 0 - 34.0 pg [facility] MCHC (RBC) [Mass/Vol] 31.8 % 30.5 - 36.0 % [facility] MCV (RBC) [Entitic vol] 88.4 fL 77.0 - 99.0 fL [facility] Platelet mean volume (Bld) [Entitic vol] 9.9 fL 9.0 - 12.7 fL [facility] Platelets (Bld) [#/Vol] 87 10*3/uL Low 140 - 440 10*3/uL [facility] RBC (Bld) [#/Vol] 3.45 10*6/uL Low 4.40 - 5.90 10*6/uL [facility] WBC (Bld) [#/Vol] 8.1 10*3/uL 3.6 - 10.7 10*3/uL [facility] CBC WITH AUTO DIFFERENTIALon 06-24-2024 Erythrocyte distribution width (RBC) [Ratio] 13.5 % Normal 11.5-15.0 [facility] Comment on above: Performed By: #### L [id number], [id number] ####Cargo Inspector: UMBERTO JOHNSON ([id number])[facility] ([facility])[address] [place] [address] Hematocrit (Bld) [Volume fraction] 30.5 % Low 40.0-52.0 [facility] Comment on above: Performed By: #### L [id number], [id number] ####Cargo Inspector: UMBERTO JOHNSON ([id number])[facility] ([facility])[address] [place] [address] Hemoglobin (Bld) [Mass/Vol] 9.7 g/dL Low 13.0-18. 0 [facility] Comment on above: Performed By: #### L [id number], [id number] ####Cargo Inspector: UMBERTO JOHNSON ([phone])[facility] ([facility])[address] [place] [address] IPF 1 Normal [facility] Comment on above: Performed By: #### L [id number], [id number] ####Cargo Inspector: UMBERTO JOHNSON ([id number])[facility] ([facility])[address] [place] [address] MCH (RBC) [Entitic mass] 28.1 pg Normal 26.0-34.0 [facility] Comment on above: Performed By: #### L [id number], [id number] ####Cargo Inspector: UMBERTO JOHNSON ([id number])[place] (SBHLAB)[address] MCHC 31.8 % Normal 30.5-36.0 [facility] Comment on above: Performed By: #### L [id number], [id number] ####Cargo Inspector: UMBERTO JOHNSON ([id number])[facility] [place] (SBHLAB)[address] MCV (RBC) [Entitic vol] 88.4 fL Normal 77.0-99.0 [facility] Comment on above: Performed By: #### L [id number], [id number] ####Cargo Inspector: UMBERTO JOHNSON ([phone])[facility] [place] (SBHLAB)[address] Platelet mean volume (Bld) [Entitic vol] 9.9 fL Normal 9.0-12.7 [facility] Comment on above: Performed By: #### L [id number], [id number] ####Cargo Inspector: UMBERTO JOHNSON ([id number])[facility] [place] (SBHLAB)[address] Platelets (Bld) [#/Vol] 87 10*3/uL Low 140-440 [facility] Comment on above: Performed By: #### L [id number], [id number] ####Cargo Inspector: UMBERTO JOHNSON ([phone])[facility] [place] (SBHL[place])[address] RBC (Bld) [#/Vol] 3.45 10*6/uL Low 4.40-5.90 [facility] Comment on above: Performed By: #### L [id number], [id number] ####Cargo Inspector: UMBERTO JOHNSON ([id number])[facility] [place] (SB[place])[address] [place] [address] [place] WBC (Bld) [#/Vol] 8.1 10*3/uL Normal 3.6-10.7 [facility] Comment on above: Performed By: #### L [id number], [id number] ####Cargo Inspector: UMBERTO JOHNSON ([phone])[facility] [place] (SBHLAB)[address] [place] [address] COMPREHENSIVE METABOLIC PANE Tung 06-24-2024 Albumin [Mass/Vol] 2.9 g/dL Low 3.5-5.0 [facility] Comment on above: Performed By: #### L [id number] ####Cargo Inspector: UMBERTO JOHNSON ([id number])[facility] (SBHLAB)[address] [place] [address]#### [id number] ####Cargo Inspector: VANESSA BOWLES ([id number])[facility] ([facility])[address] [place] [address] ALP [Catalytic activity/Vol] 66 U/L Normal 40-150 [facility] Comment on above: Performed By: #### L [id number] ####Cargo Inspector: UMBERTO JOHNSON ([phone])[facility] (SBHLAB)[address] [place] [address]#### [id number] ####Cargo Inspector: VANESSA BOWLES ([id number])[facility] (S[facility])[address] [place] [address] ALT [Catalytic activity/Vol] U/L Normal <40 [facility] Comment on above: Performed By: #### L [id number] ####Cargo Inspector: UMBERTO JOHNSON ([id number])[facility] (SBHLAB)[address] [place] [address]#### [id number] ####Cargo Inspector: VANESSA BOWLES ([phone])[facility] ([facility])[address] [place] [address] Anion gap [Moles/Vol] 11 mmol/L Normal 3-13 [facility] Comment on above: Performed By: #### L [id number] ####Cargo Inspector: UMBERTO JOHNSON ([id number])[facility] [place] (SBHLAB)[address] [place] [address]#### [id number] ####Cargo Inspector: VANESSA BOWLES ([id number])[facility] [place] [address] AST [Catalytic activity/Vol] 33 U/L Normal <34 [facility] Comment on above: Result Comment: TCPo tential interference from hemolysis Performed By: #### L [id number] ####Cargo Inspector: UMBERTO JOHNSON ([id number])[facility]ENTERL[facility] (HLAB)[address] [place] [address]#### [id number] ####Cargo Inspector: VANESSA BOWLES ([id number])[facility] ([facility])[address] [place] [address] Bilirubin [Mass/Vol] 1.1 mg/dL Normal <1.2 [facility] Comment on above: Performed By: #### L [id number] ####Cargo Inspector: UMBERTO JOHNSON ([id number])[facility] SH[facility]ACHRI[address] [facility]ENTERLala ([facility])[address] [place] [address]#### [id number] ####Cargo Inspector: VANESSA BOWLES ([phone])[facility] ([facility])[address] [place] [address] Calcium [Mass/Vol] 8.2 mg/dL Low 8.8-10.0 [facility] Comment on above: Performed By: #### L [id number] ####Cargo Inspector: UMBERTO JOHNSON ([id number])[facility] (HLAB)[address] [place] [address]#### [id number] ####Cargo Inspector: VANESSA BOWLES ([phone])[facility] ([facility])[address] [place] [address] Chloride [Moles/Vol] 105 mmol/L Normal 98-107 [facility] Comment on above: Performed By: #### L [id number] ####Cargo Inspector: UMBERTO JOHNSON ([phone])[facility] [place] (SBHLAB)[address] [place] [address]#### [id number] ####Cargo Inspector: VANESSA BOWLES ([id number])[facility] ([facility])[address] [place] [address] CO2 [Moles/Vol] 22 mmol/L Normal 22-29 [facility] Comment on above: Performed By: #### L [id number] ####Cargo Inspector: UMBERTO JOHNSON ([id number])[facility] (SBHLAB)[address] [place] [address]#### [id number] ####Cargo Inspector: VANESSA BOWLES ([phone])[facility] ([facility])[address] [place] [address] Creatinine [Mass/Vol] 1.17 mg/dL Normal 0.72-1.25 [facility] Comment on above: Performed By: #### L [id number] ####Cargo Inspector: UMBERTO JOHNSON ([id number])[facility] (HLAB)[address] [place] [address]#### [id number] ####Cargo Inspector: VANESSA BOWLES ([phone])[facility] ([facility])[address] [place] [address] GLOMERULAR FILTRATION RATE ML/MIN/1.73 SQ M.PREDICTED 71.4 mL/min/1.73m*2 Normal >60.0 [facility] Comment on above: Result Comment: Calc ulation based on the Chronic Kidney Disease Epidemiology Collaboration (CKD-EPI) equation refit without adjustment for race Performed By: #### L [id number] ####Cargo Inspector: UMBERTO JOHNSON ([id number])[facility] [place] (SBHLAB)[address] [place] [address] [place]#### [id number] ####Cargo Inspector: VANESSA BOWLES ([id number])[facility] ([facility])[address] [place] [address] Glucose [Mass/Vol] 111 mg/dL High 74-100 [facility] Comment on above: Performed By: #### L [id number] ####Cargo Inspector: UMBERTO JOHNSON ([id number])[place] (SBHLAB)[address] [place] [address]#### [id number] ####Cargo Inspector: VANESSA BOWLES ([id number])[facility] ([facility] [place] [address] Potassium [Moles/Vol] 4.1 mmol/L Normal 3.5-5.1 [facility] Comment on above: Result Comment: [facility] potassium values may be up to 0.5 mmol/L lower than serum values. Performed By: #### L [id number] ####Cargo Inspector: UMBERTO JOHNSON ([phone])[facility] [place] (SBHLAB)[address] [place] [address]#### [id number] ####Cargo Inspector: VANESSA BOWLES ([id number])[facility] ([facility] [place] [address] Protein [Mass/Vol] 6.3 g/dL Low 6.4-8.3 [facility] Comment on above: Performed By: #### L [id number] ####Cargo Inspector: UMBERTO JOHNSON ([id number])[facility] [place] (SBHLAB)[address] [place] [address]#### [id number] ####Cargo Inspector: VANESSA BOWLES ([id number])[facility] ([facility])[address] [place] [address] Sodium [Moles/Vol] 138 mmol/L Normal 136-145 [facility] Comment on above: Performed By: #### L [id number] ####Cargo Inspector: UMBERTO JOHNSON ([phone])[facility] (SBHLAB)[address] [place] [address]#### [id number] ####Cargo Inspector: VANESSA BOWLES ([phone])[facility] (SACLAB)[address] Urea nitrogen [Mass/Vol] 15 mg/dL Normal 9-23 [facility] Comment on above: Performed By: #### L [id number] ####Cargo Inspector: UMBERTO JOHNSON ([id number])[facility] [place] (SBHLAB)[address] [place] [address]#### [id number] ####Cargo Inspector: VANESSA BOWLES ([id number])[facility] ([facility])[address] [place] [address] Comprehensive metabolic 1998 panelon 06-24-2024 Albumin [Mass/Vol] 2.9 g/dL Low 3.5 - 5.0 g/dL [facility] ALP [Catalytic activity/Vol] 66 U/L 40 - 150 U/L [facility] ALT [Catalytic activity/Vol] U/L NINF - 40 U/L [facility] Anion gap [Moles/Vol] 11 mmol/L 3 - 13 mmol/L [facility] AST [Catalytic activity/Vol] 33 U/L [facility] - 34 U/L [facility] Comment on above: TC Potential interference from hemolysis Bilirubin [Mass/Vol] 1.1 mg/dL NINF - 1.2 mg/dL [facility] Calcium [Mass/Vol] 8.2 mg/dL Low 8.8 - 10. 0 mg/dL [facility] Chloride [Moles/Vol] 105 mmol/L 98 - 10 7 mmol/L [facility] CO2 [Moles/Vol] 22 mmol/L 22 - 29 mmol/L [facility] Creatinine [Mass/Vol] 1.17 mg/dL 0.72 - 1.25 mg/dL [facility] GFR/1.73 sq M.predicted (S/P/Bld) [Vol rate/Area] 71.4 mL/min - PINF [facility] Comment on above: Calculation based on the Chronic Kidney Disease Epidemiology Collaboration (CKD-EPI) equation refit without adjustment for race Glucose [Mass/Vol] 111 mg/dL High 74 - 100 mg/dL [facility] Interpretation and review of laboratory results Abnormal [facility] Potassium [Moles/Vol] 4.1 mmol/L 3.5 - 5.1 mmol/L [facility] Comment on above: Plasma potassium chuy ues may be up to 0.5 mmol/L lower than serum values. Protein [Mass/Vol] 6.3 g/dL Low 6.4 - 8.3 g/dL [facility] Sodium [Moles/Vol] 138 mmol/L 136 - 145 mmol/L [facility] Urea nitrogen [Mass/Vol] 15 mg/dL 9 - 23 mg/dL [facility] Consulton 06-24-2024 Consult Normal [facility] Consult Vancomycin therapy has been discontinued by Dr. Salomon on 06-24-24. Thank you for the consult. Pharmacy signing off for vancomycin dosing. Lisa Chávez, [facility], Date: 06/24/24 Time: 9:00 AM Normal [facility] Consult Normal [facility] Laboratory - Chemistry and C hemistry - challengeon 06-24-2024 Glucose [Mass/Vol] 116 mg/dL High 70 - 100 mg/dL [facility] Procalcitonin [Mass/Vol] 0.66 ng/mL High HOMA F - 0.07 ng/mL [facility] - Hematology and Cell countson 06-24-2024 Basophils (Bld) [#/Vol] 0.1 10*3/uL 0.0 - 0.2 10*3/uL [facility] Basophils/100 WBC (Bld) 1 % 0 - 2 % [facility] Eosinophils (Bld) [#/Vol] 0.2 10*3/uL 0. 0 - 0.5 10*3/uL [facility] Eosinophils/100 WBC (Bld) 2 % 0 - 6 % [facility] Lymphocytes (Bld) [#/Vol] 0.6 10*3/uL Low 1. 0 - 4.3 10*3/uL [facility] Lymphocytes/100 WBC (Bld) 8 % Low 15 - 45 % [facility] Monocytes (Bld) [#/Vol] 0.5 10*3/uL 0.0 - 0.9 10*3/uL [facility] Monocytes/100 WBC (Bld) 6 % 5 - 13 % [facility] Neutrophils (Bld) [#/Vol] 6.8 10*3/uL 1. 8 - 7.5 10*3/uL [facility] RBC morphology finding Nom (Bld) Normal [facility] Segmented neutrophils/100 WB C (Bld) 84 % High 38 - 82 % [facility] MANUAL DIFFERENTIAL (CELLAVI ROSANNA)on 06-24-2024 BAND NEUTROPHILS TOTAL PER COUNTED LEUKOCYTES BY MANUAL COUNT Normal [facility] Comment on above: Performed By: #### L [id number], [id number] ####Cargo Inspector: UMBERTO JOHNSON ([phone])[facility] [place] (SBHL[facility])[address] [place] [address] [place] BASOPHILS (10*3/UL) IN BLOOD-CELLAVISION 0.1 10*3/uL Normal 0.0-0.2 [facility] Comment on above: Performed By: #### L [id number], [id number] ####Cargo Inspector: UMBERTO JOHNSON ([phone])[facility] [place] (SBHL[facility])[address] [place] [address] [place] BASOPHILS TOTAL PER COUNTED LEUKOCYTES BY MANUAL COUNT 1 Normal [facility] Comment on above: Performed By: #### L [id number], [id number] ####Cargo Inspector: UMBERTO JOHNSON ([id number])[facility] [place] (SB[facility])[address] [place] [address] [place] BASOPHILS/100 LEUKOCYTES IN BLOOD-CELLAVISION 1 % Normal 0-2 [facility] Comment on above: Performed By: #### L [id number], [id number] ####Cargo Inspector: UMBERTO JOHNSON ([phone])[facility] [place] (SB[facility])[address] [place] [address] [place] BLASTS TOTAL PER COUNTED LEUKOCYTES BY MANUAL COUNT Normal [facility] Comment on above: Performed By: #### L [id number], [id number] ####Cargo Inspector: UMBERTO JOHNSON ([phone])[facility] [place] (SB[facility])[address] [place] [address] [place] EOSINOPHILS (10*3/UL) IN BLOOD-CELLAVISION 0.2 10*3/uL Normal 0.0-0.5 [facility] Comment on above: Performed By: #### L [id number], [id number] ####Cargo Inspector: UMBERTO MARIEECER ([phone])[facility] [place] (SBHLAB)[address] [place] [address] [place] EOSINOPHILS TOTAL PER COUNTE D LEUKOCYTES BY MANUAL COUNT 2 High 0-1 [facility] Comment on above: Performed By: #### L [id number], [id number] ####Cargo Inspector: UMBERTO JOHNSON ([phone])[facility] [place] (SB[facility])[address] [place] [address] [place] EOSINOPHILS/100 LEUKOCYTES I N BLOOD-CELLAVISION 2 % Normal 0-6 [facility] Comment on above: Performed By: #### L [id number], [id number] ####Cargo Inspector: UMBERTO ROBLESTAYLOR ([id number])[facility] [place] ([facility])[address] [place] [address] [place] LYMPHOCYTES (10*3/UL) IN BLOOD-CELLAVISION 0.6 10*3/uL Low 1.0-4.3 [facility] Comment on above: Performed By: #### L [id number], [id number] ####Cargo Inspector: UMBERTO JOHNSON ([phone])[facility] [place] ([facility])[address] [place] [address] [place] LYMPHOCYTES TOTAL PER COUNTE D LEUKOCYTES BY MANUAL COUNT 8 Normal [facility] Comment on above: Performed By: #### L [id number], [id number] ####Cargo Inspector: UMBERTO JOHNSON ([phone])[facility] [place] ([facility])[address] [place] [address] [place] LYMPHOCYTES/100 LEUKOCYTES I N BLOOD-CELLAVISION 8 % Low 15-45 [facility] Comment on above: Performed By: #### L [id number], [id number] ####Cargo Inspector: UMBERTO JOHNSON ([phone])[facility] [place] (SB[facility])[address] [place] [address] [place] METAMYELOCYTES TOTAL PER COUNTED LEUKOCYTES BY MANUAL COUNT Normal [facility] Comment on above: Performed By: #### L [id number], [id number] ####Cargo Inspector: UMBERTO ANDER ([phone])[facility] [place] (SB[facility])[address] [place] [address] [place] MONOCYTES (10*3/UL) IN BLOOD-CELLAVISION 0.5 10*3/uL Normal 0.0-0.9 [facility] Comment on above: Performed By: #### L [id number], [id number] ####Cargo Inspector: UMBERTO ARAUJOKASEY ([id number])[facility] [place] (SBHLAB)[address] [place] [address] [place] MONOCYTES TOTAL PER COUNTED LEUKOCYTES BY MANUAL COUNT 6 Normal [facility] Comment on above: Performed By: #### L [id number], [id number] ####Cargo Inspector: UMBERTO ARAUJOKASEY ([phone])[facility]USA [place] ([facility])[address] [place] [address] [place] MONOCYTES/100 LEUKOCYTES IN BLOOD-LUCY 6 % Normal 5-13 [facility] Comment on above: Performed By: #### L [id number], [id number] ####Cargo Inspector: UMBERTO ROBLESTAYLOR ([id number])[facility] [place] ([facility])[address] [place] [address] [place] MYELOCYTES COUNTED BY MANUAL COUNT [facility] Comment on above: Performed By: #### L [id number], [id number] ####Cargo Inspector: UMBERTO ROBLESTAYLOR ([id number])[facility] [place] ([facility])[address] [place] [address] [place] NEUTROPHILS TOTAL PER COUNTE D LEUKOCYTES BY MANUAL COUNT 86 Normal [facility] Comment on above: Performed By: #### L [id number], [id number] ####Cargo Inspector: UMBERTO JOHNSON ([id number])[facility] [place] ([facility])[address] [place] [address] [place] PROMYELOCYTES TOTAL PER COUNTED LEUKOCYTES BY MANUAL COUNT [facility] Comment on above: Performed By: #### L [id number], [id number] ####Cargo Inspector: UMBERTO JOHNSON ([id number])[facility] CAMPUSSusie [place] (SB[facility])[address] [place] MORPHOLOGY IN BLOOD Normal Normal S [facility] Comment on above: Performed By: #### L [id number], [id number] ####Cargo Inspector: UMBERTO JOHNSON ([id number])[facility]ITALLala (SB[facility])[address] SEGMENTED NEUTROPHILS (10*3/UL) IN BLOOD-CELLAVISION 6.8 10*3/uL Normal 1.8-7.5 [facility] Comment on above: Performed By: #### L [id number], [id number] ####Cargo Inspector: UMBERTO JOHNSON ([id number])[facility] CAMPUSSusie SÁNCHEZCHRISTUS ST[facility] VINCENT PHYSICIANS MEDICAL CENTERLala (SBHLAB)[address] SEGMENTED NEUTROPHILS/100 LEUKOCYTES-CE 84 % High 38-82 [facility] Comment on above: Performed By: #### L [id number], [id number] ####Cargo Inspector: UMBERTO JOHNSON ([id number])[facility] (SBHLAB)[address] [place] [address] UNCLASSIFIED CELLS TOTAL PER COUNTED LEUKOCYTES BY MANUAL COUNT [facility] Comment on above: Performed By: #### L [id number], [id number] ####Cargo Inspector: UMBERTO JOHNSON ([id number])[facility] (SBHLAB)[address] VARIANT LYMPHOCYTES TOTAL PE R COUNTED LEUKOCYTES BY MANUAL COUNT [facility] Comment on above: Performed By: #### L [id number], [id number] ####Cargo Inspector: UMBERTO JOHNSON ([id number])[facility] (SBHLAB)[address] No Panel Informationon 06-24 Interpretation and review of laboratory results Abnormal [facility] Performed by: [facility], [address] [place] [address] CLIA ID: [id number] [facility] Atypical Lymphocytes Manual [facility] Health Bands Manual [facility] Basophils Manual 1 [facility] He alth Blasts Manual [facility] Healt h Eosinophils Manual 2 High 0 - 1 [facility] Interpretation and review of laboratory results Abnormal [facility] Lymphocytes Manual 8 [facility] Metamyelocytes Manual [facility] Monocytes Manual 6 [facility] alth Myelocytes Manual [facility] ealth Neutrophils Manual 86 [facility] Promyelocytes Manual [facility] Unclassified Cells, Manual [facility] Nursing Noteon 06-24-2024 Nursing Note Normal [facility] PROCALCITONIN TESTon 025 PROCALCITONIN 0.66 ng/mL High <0.07 [facility] Comment on above: Result Comment: ROSSE R COMMENTS:PCT <0.50 = Low risk of severe sepsis and/or septic shock.PCT >2.00 = High risk of severe sepsis and/or septic shock. Performed By: #### L [id number] ####Cargo Inspector: UMBERTO JOHNSON ([phone])[facility] ([facility])[address] [place] [address]#### [id number] ####Cargo Inspector: VANESSA BOWLES ([id number])[facility] ([id number] Procalcitonin [Mass/Vol]on 0 06-24-2024 Interpretation and review of laboratory results Abnormal [facility] PCT <0.50 = Low risk of severe sepsis and/or septic shock. PCT >2.00 = High risk of severe sepsis and/or septic shock. [facility] Progress Noteon 06-24-2024 Progress Note Normal [facility] Progress Note Normal [facility] Progress Note Normal [facility] Progress Note Normal [facility] BASIC METABOLIC PANELon 06-11 Anion gap [Moles/Vol] 10 mmol/L Normal - [facility] Comment on above: Performed By: #### L [id number], [id number] ####Cargo Inspector: UMBERTO JOHNSON ([id number])[facility] ([facility])[address] Calcium [Mass/Vol] 8.8 mg/dL Normal 8.8-10.0 [facility] Comment on above: Performed By: #### L AB15, [id number] ####Cargo Inspector: UMBERTO JOHNSON ([id number])[facility] [place] (SBHLAB)[address] Chloride [Moles/Vol] 103 mmol/L Normal 98-107 [facility] Comment on above: Performed By: #### L AB15, [id number] ####Cargo Inspector: UMBERTO JOHNSON ([phone])[facility] [place] (SBHLAB)[address] CO2 [Moles/Vol] 21 mmol/L Low 22-29 [facility] Comment on above: Performed By: #### L AB15, [id number] ####Cargo Inspector: UMBERTO JOHNSON ([phone])[facility] CAMPUSA [facility] (SBHLAB)[address] Creatinine [Mass/Vol] 1.24 mg/dL Normal 0.72-1.25 [facility] Comment on above: Performed By: #### L AB15, [id number] ####Cargo Inspector: UMBERTO JOHNSON ([id number])[facility] CAMPUSSusie [facility]HEZ[facility]RI[address] (SBHLAB)[address] GLOMERULAR FILTRATION RATE ML/MIN/1.73 SQ M.PREDICTED 66.6 mL/min/1.73m*2 Normal >60.0 [facility] Comment on above: Result Comment: Calc ulation based on the Chronic Kidney Disease Epidemiology Collaboration (CKD-EPI) equation refit without adjustment for race Performed By: #### L AB15, [id number] ####Cargo Inspector: UMBERTO JOHNSON ([id number])[facility]AMPUSA BARB[address] [facility] (SBHLAB)[address] [place] [address] [place] Glucose [Mass/Vol] 106 mg/dL High 74-100 [facility] Comment on above: Performed By: #### L AB15, [id number] ####Cargo Inspector: UMBERTO MARIEECER ([id number])[facility] CAMPUSSusie [facility] (SBHLAB)[address] Potassium [Moles/Vol] 3.8 mmol/L Normal 3.5-5.1 [facility] Comment on above: Result Comment: [facility] potassium values may be up to 0.5 mmol/L lower than serum values. Performed By: #### L AB15, [id number] ####Cargo Inspector: UMBERTO JOHNSON ([phone])[facility] CAMPUSSusie [facility] [facility] (SBHLAB)[address] Sodium [Moles/Vol] 134 mmol/L Low 136-145 [facility] Comment on above: Performed By: #### L AB15, [id number] ####Cargo Inspector: UMBERTO MARIEECER ([id number])[facility] (SBHLAB)[address] Urea nitrogen [Mass/Vol] 13 mg/dL Normal 9-23 [facility] Comment on above: Performed By: #### L AB15, [id number] ####Cargo Inspector: UMBERTO ARAUJOKASEY ([phone])[facility] (SBHLAB)[address] [place] [address] Basic metabolic 1998 panelon 06-23-2024 Anion gap [Moles/Vol] 10 mmol/L 3 - 13 mmol/L [facility] Calcium [Mass/Vol] 8.8 mg/dL 8.8 - 10. 0 mg/dL [facility] Chloride [Moles/Vol] 103 mmol/L 98 - 10 7 mmol/L [facility] CO2 [Moles/Vol] 21 mmol/L Low 22 - 29 mmol/L [facility] Creatinine [Mass/Vol] 1.24 mg/dL 0.72 - 1.25 mg/dL [facility] GFR/1.73 sq M.predicted (S/P/Bld) [Vol rate/Area] 66.6 mL/min - PINF [facility] Comment on above: Calculation based on the Chronic Kidney Disease Epidemiology Collaboration (CKD-EPI) equation refit without adjustment for race Glucose [Mass/Vol] 106 mg/dL High 74 - 100 mg/dL [facility] Interpretation and review of laboratory results Abnormal [facility] Potassium [Moles/Vol] 3.8 mmol/L 3.5 - 5.1 mmol/L [facility] Comment on above: Plasma potassium chuy ues may be up to 0.5 mmol/L lower than serum values. Sodium [Moles/Vol] 134 mmol/L Low 136 - 145 mmol/L [facility] Urea nitrogen [Mass/Vol] 13 mg/dL 9 - 23 mg/dL [facility] C-REACTIVE PROTEINon 025 CRP [Mass/Vol] 115.7 mg/L High <5.0 [facility] Comment on above: Performed By: #### L AB15, [id number] ####Cargo Inspector: UMBERTO JOHNSON ([id number])[facility] (SBHLAB)[address] [place] [address] CBC W Auto Differential pane l (Bld)Ordered By: Lisandro Quintero on 06-23-2024 Erythrocyte distribution width (RBC) [Ratio] 13.2 % 11.5 - 15.0 % [facility] Hematocrit (Bld) [Volume fraction] 35.4 % Low 40.0 - 52.0 % [facility] Hemoglobin (Bld) [Mass/Vol] 11.3 g/dL Low 13.0 - 18.0 g/dL [facility] Interpretation and review of laboratory results Abnormal [facility] IPF 1 [facility] MCH (RBC) [Entitic mass] 27.8 pg 26. 0 - 34.0 pg [facility] MCHC (RBC) [Mass/Vol] 31.9 % 30.5 - 36.0 % [facility] MCV (RBC) [Entitic vol] 87.2 fL 77.0 - 99.0 fL [facility] Platelet mean volume (Bld) [Entitic vol] 9.1 fL 9.0 - 12.7 fL [facility] Platelets (Bld) [#/Vol] 93 10*3/uL Low 140 - 440 10*3/uL [facility] RBC (Bld) [#/Vol] 4.06 10*6/uL Low 4.40 - 5.90 10*6/uL [facility] WBC (Bld) [#/Vol] 8.5 10*3/uL 3.6 - 10.7 10*3/uL [facility] CBC WITH AUTO DIFFERENTIALon 06-23-2024 Erythrocyte distribution width (RBC) [Ratio] 13.2 % Normal 11.5-15.0 [facility] Comment on above: Performed By: #### Jordyn [id number], [id number], [id number] ####Cargo Inspector: UMBERTO JOHNSON ([id number])[facility] ([facility])[address] [place] [address] Hematocrit (Bld) [Volume fraction] 35.4 % Low 40.0-52.0 [facility] Comment on above: Performed By: #### Jordyn [id number], [id number], [id number] ####Cargo Inspector: UMBERTO JOHNSON ([phone])[facility] ([facility])[address] [place] [address] Hemoglobin (Bld) [Mass/Vol] 11.3 g/dL Low 13.0-18. 0 [facility] Comment on above: Performed By: #### Jordyn [id number], [id number], [id number] ####Cargo Inspector: UMBERTO JOHNSON ([id number])[facility] ([facility])[address] [place] [address] IPF 1 Normal [facility] Comment on above: Performed By: #### Jordyn [id number], [id number], [id number] ####Cargo Inspector: UMBERTO JOHNSON ([id number])[facility] ([facility])[address] [place] [address] MCH (RBC) [Entitic mass] 27.8 pg Normal 26.0-34.0 [facility] Comment on above: Performed By: #### L [id number], [id number], [id number] ####Cargo Inspector: UMBERTO JOHNSON ([id number])[facility] ([facility])[address] [place] [address] MCHC 31.9 % Normal 30.5-36.0 [facility] Comment on above: Performed By: #### Jordyn [id number], [id number], [id number] ####Cargo Inspector: UMBERTO JOHNSON ([id number])[facility] (SBHLAB)[address] MCV (RBC) [Entitic vol] 87.2 fL Normal 77.0-99.0 [facility] Comment on above: Performed By: #### Jordyn [id number], [id number], [id number] ####Cargo Inspector: UMBERTO JOHNSON ([id number])[facility] (SBHLAB)[address] Platelet mean volume (Bld) [Entitic vol] 9.1 fL Normal 9.0-12.7 [facility] Comment on above: Performed By: #### Jordyn [id number], [id number], [id number] ####Cargo Inspector: UMBERTO JOHNSON ([id number])[facility] [place] (SBHLAB)[address] [place] [address] Platelets (Bld) [#/Vol] 93 10*3/uL Low 140-440 [facility] Comment on above: Performed By: #### Jordyn [id number], [id number], [id number] ####Cargo Inspector: UMBERTO JOHNSON ([id number])[facility] (SBHLAB)[address] [place] [address] RBC (Bld) [#/Vol] 4.06 10*6/uL Low 4.40-5.90 [facility] Comment on above: Performed By: #### L [id number], [id number], [id number] ####Cargo Inspector: UMBERTO JOHNSON ([id number])[facility] (SBHLAB)[address] WBC (Bld) [#/Vol] 8.5 10*3/uL Normal 3.6-10.7 [facility] Comment on above: Performed By: #### L [id number], [id number], [id number] ####Cargo Inspector: UMBERTO JOHNSON ([id number])[facility] ([facility] [place] [address] CRP [Mass/Vol]on 06-23-2024 Interpretation and review of laboratory results Abnormal [facility] CT ABDOMEN PELVIS WO IV CONT RASTon 06-23-2024 CT ABDOMEN PELVIS WO IV CONTRAST Normal [facility] CT Abdomen and Pelvis WO con traston 06-23-2024 1. No acute fracture is identified. 2. Small loculated fluid collections in the subcutaneous tissues adjacent to the right hip. These most likely reflect postoperative seromas. Correlate clinically to fully exclude an abscess or hematoma. 3. Mild splenomegaly. 4. Indeterminate 10 mm left renal cortical lesion. Recommend further evaluation with nonemergent renal ultrasound. If lesion is not adequately characterized with ultrasound, recommend further evaluation with multiphasic renal mass protocol MRI. 5. Mildly prominent left external iliac and inguinal lymph nodes. Report Dictated on Electronically Signed By: Mago Falcon MD Electronically Signed Date/Time: 06/23/2024 12:42 PM [facility] RADIOLOGY SYSTEM Patient Name: SOPHIE HICKS : 1965 Exam Date/Time: 06/23/2024 11:19 Procedure: CT ABDOMEN PELVIS WO IV CONTRAST Ordering Provider: RODRIGUEZ AKASH Reason For Exam: fall, lower back pain EXAM: CT Abdomen and Pelvis Without Intravenous Contrast CLINICAL INDICATION: fall, lower back pain. Weakness and pain in the bilateral legs. TECHNIQUE: Axial computed tomography images of the abdomen and pelvis without intravenous contrast. This CT exam was performed using one or more of the following dose reduction techniques: automated exposure control, adjustment of the mA and/or kV according to patient size, and/or use of iterative reconstruction technique. COMPARISON: CT abdomen pelvis from 10/01/2023. FINDINGS: LUNG BASES: Stable 2 mm noncalcified left lower lobe pulmonary nodules. No follow-up imaging is recommended according to Fleischner criteria. No consolidation. ABDOMEN: LIVER: Unremarkable. GALLBLADDER AND BILE DUCTS: Mild abnormal gallbladder distention. No pericholecystic fluid. No calcified gallstones. No significant biliary ductal dilatation. Gallbladder distention is most likely due to a fasting state. PANCREAS: Unremarkable. No ductal dilation. SPLEEN: Spleen is mildly prominent, measuring up to 15.3 cm in length. ADRENALS: Tiny benign fat density right adrenal myelolipoma, measuring 8 mm. No follow-up imaging is recommended. KIDNEYS AND URETERS: Intermediate density lateral interpolar left renal cortical lesion, measuring 10 mm x 10 mm (series 3 image 81). This appears similar to prior. No hydronephrosis. STOMACH AND BOWEL: Postsurgical change of the stomach. No bowel obstruction. PELVIS: APPENDIX: No findings to suggest acute appendicitis. BLADDER: Unremarkable. No stones. REPRODUCTIVE: Unremarkable as visualized. ABDOMEN and PELVIS: INTRAPERITONEAL SPACE: Unremarkable. No free air. No significant fluid collection. BONES/JOINTS: Degenerative change of the spine. Right GEORGE. Hardware appears intact. Mild left hip joint DJD. Chronic left L5 pars defect. No acute fracture. SOFT TISSUES: Mild subcutaneous edema in the right lateral gluteal and proximal thigh regions. There are two adjacent small low-density fluid collections in the subcutaneous tissues at the ventral lateral aspect of the right hip. These measure 2.8 cm x 1.6 cm and 2.7 cm x 2.2 cm. These contain no gas. Mild probable scar tissue in the right flank subcutaneous tissues. VASCULATURE: Minimal atherosclerotic vascular calcifications. No abdominal aortic aneurysm. LYMPH NODES: Mildly enlarged 13 mm left external iliac lymph node. Mildly enlarged left inguinal lymph nodes, measuring up to 13 mm. [facility] RAD[facility] Mago Falcon MD - 06/23/2024 Patient Name: [facility] 1965 [id number] Exam Date/Time: 06/23/2024 11:19 Procedure: CT ABDOMEN PELVIS WO IV CONTRAST Ordering Provider: RODRIGUEZ AKASH Reason For Exam: fall, lower back pain EXAM: CT Abdomen and Pelvis Without Intravenous Contrast CLINICAL INDICATION: fall, lower back pain. Weakness and pain in the bilateral legs. TECHNIQUE: Axial computed tomography images of the abdomen and pelvis without intravenous contrast. This CT exam was performed using one or more of the following dose reduction techniques: automated exposure control, adjustment of the mA and/or kV according to patient size, and/or use of iterative reconstruction technique. COMPARISON: CT abdomen pelvis from 10/01/2023. FINDINGS: LUNG BASES: Stable 2 mm noncalcified left lower lobe pulmonary nodules. No follow-up imaging is recommended according to Fleischner criteria. No consolidation. ABDOMEN: LIVER: Unremarkable. GALLBLADDER AND BILE DUCTS: Mild abnormal gallbladder distention. No pericholecystic fluid. No calcified gallstones. No significant biliary ductal dilatation. Gallbladder distention is most likely due to a fasting state. PANCREAS: Unremarkable. No ductal dilation. SPLEEN: Spleen is mildly prominent, measuring up to 15.3 cm in length. ADRENALS: Tiny benign fat density right adrenal myelolipoma, measuring 8 mm. No follow-up imaging is recommended. KIDNEYS AND URETERS: Intermediate density lateral interpolar left renal cortical lesion, measuring 10 mm x 10 mm (series 3 image 81). This appears similar to prior. No hydronephrosis. STOMACH AND BOWEL: Postsurgical change of the stomach. No bowel obstruction. PELVIS: APPENDIX: No findings to suggest acute appendicitis. BLADDER: Unremarkable. No stones. REPRODUCTIVE: Unremarkable as visualized. ABDOMEN and PELVIS: INTRAPERITONEAL SPACE: Unremarkable. No free air. No significant fluid collection. BONES/JOINTS: Degenerative change of the spine. Right GEORGE. Hardware appears intact. Mild left hip joint DJD. Chronic left L5 pars defect. No acute fracture. SOFT TISSUES: Mild subcutaneous edema in the right lateral gluteal and proximal thigh regions. There are two adjacent small low-density fluid collections in the subcutaneous tissues at the ventral lateral aspect of the right hip. These measure 2.8 cm x 1.6 cm and 2.7 cm x 2.2 cm. These contain no gas. Mild probable scar tissue in the right flank subcutaneous tissues. VASCULATURE: Minimal atherosclerotic vascular calcifications. No abdominal aortic aneurysm. LYMPH NODES: Mildly enlarged 13 mm left external iliac lymph node. Mildly enlarged left inguinal lymph nodes, measuring up to 13 mm. IMPRESSION: 1. No acute fracture is identified. 2. Small loculated fluid collections in the subcutaneous tissues adjacent to the right hip. These most likely reflect postoperative seromas. Correlate clinically to fully exclude an abscess or hematoma. 3. Mild splenomegaly. 4. Indeterminate 10 mm left renal cortical lesion. Recommend further evaluation with nonemergent renal ultrasound. If lesion is not adequately characterized with ultrasound, recommend further evaluation with multiphasic renal mass protocol MRI. 5. Mildly prominent left external iliac and inguinal lymph nodes. Report Dictated on Electronically Signed By: Mago Falcon MD Electronically Signed Date/Time: 06/23/2024 12:42 PM EDT [facility] Radiology Study observation (narrative) [facility] ED Nursing Noteon 06-23-2024 ED Nursing Note Unit made aware of impending patient transport to the unit via broadcast. Normal [facility] ED Nursing Note Pt found to have disconnected J-loop from IV hub and bleeding. IV pulled without difficulty. Will attempt to start new IV to continue antibiotics and fluids. Normal [facility] ED Nursing Note US at bedside. Normal [facility] ED Nursing Note Pt transported to CT. Normal [facility] ED Nursing Note Redness and swelling noted to left lower leg. Right hip incision noted to have an open area at the top. Normal [facility] ED Nursing Note Pt here to the ER via EMS after a fall at home. Pt c/o weakness and pain bilateral legs. Pt had R hip replacement 10 days ago. Pt c/o of left leg burning. Normal [facility] ED Provider Noteon ED Provider Note Normal [facility] ESR (Bld) [Velocity]on 06-23 Interpretation and review of laboratory results Abnormal [facility] LACTIC ACID WITH REFLEXon Lactate [Moles/Vol] 1.4 mmol/L Normal 0.5-2.2 [facility] Comment on above: Performed By: #### L [id number] ####Cargo Inspector: UMBERTO JOHNSON ([id number])[facility] ([facility])[address] [place] [address] Laboratory - Chemistry and C hemistry - challengeon 06-23-2024 CRP [Mass/Vol] 115.7 mg/L High NINF - 5.0 mg/L [facility] Lactate [Moles/Vol] 1.4 mmol/L 0.5 - 2. 2 mmol/L [facility] Laboratory - Hematology and Cell countson 06-23-2024 Band form neutrophils (Bld) [#/Vol] 0.1 10*3/uL High NINF - 0.0 10*3/uL [facility] Band form neutrophils/100 WB C (Bld) 1 % High NINF - 0 % [facility] Dacrocytes LM Ql (Bld) Slight Abnormal (none) [facility] Hypochromia Ql (Bld) Slight Abnormal (none) [facility] Lymphocytes (Bld) [#/Vol] 0.3 10*3/uL Low 1. 0 - 4.3 10*3/uL [facility] Lymphocytes/100 WBC (Bld) 4 % Low 15 - 45 % [facility] Monocytes (Bld) [#/Vol] 0.3 10*3/uL 0.0 - 0.9 10*3/uL [facility] Monocytes/100 WBC (Bld) 3 % Low 5 - 13 % [facility] Neutrophils (Bld) [#/Vol] 7.7 10*3/uL High 1. 8 - 7.5 10*3/uL [facility] Neutrophils.hypersegmented L M Ql (Bld) Present Abnormal (none) [facility] Nucleated RBC/100 WBC (Bld) [Ratio] 1 % 0 - 2 % [facility] Ovalocytes LM Ql (Bld) Slight Abnormal (none) [facility] Poikilocytosis LM Ql (Bld) Slight Abnormal (none) [facility] Polychromasia LM Ql (Bld) Slight Abnormal (none) [facility] RBC morphology finding Nom (Bld) abnormal [facility] Segmented neutrophils/100 WB C (Bld) 90 % High 38 - 82 % [facility] Stomatocytes LM Ql (Bld) Slight Abnormal (none) [facility] Variant lymphocytes (Bld) [#/Vol] 0.2 10*3/uL High NINF - 0.0 10*3/uL [facility] Variant lymphocytes/100 WBC (Bld) 2 % High NINF - 0 % [facility] ESR (Bld) [Velocity] 37 mm/h High [facility] MANUAL DIFFERENTIAL (CELLAVI ROSANNA)on 06-23-2024 BAND NEUTROPHILS TOTAL PER COUNTED LEUKOCYTES BY MANUAL COUNT 1 Normal [facility] Comment on above: Performed By: #### L [id number], [id number], [id number] ####Cargo Inspector: UMBERTO JOHNSON ([id number])[facility] ADRIAN (SBHLAB)[address] [place] [address] [place] BANDS (10*3/UL) IN BLOOD-CELLAVISION 0.1 10*3/uL High <=0.0 [facility] Comment on above: Performed By: #### L [id number], [id number], [id number] ####Cargo Inspector: UMBERTO JOHNSON ([id number])[facility] [place] (SBHLAB)[address] BASOPHILS TOTAL PER COUNTED LEUKOCYTES BY MANUAL COUNT Normal [facility] Comment on above: Performed By: #### L [id number], [id number], [id number] ####Cargo Inspector: UMBERTO JOHNSON ([id number])[facility] [place] (SBHLAB)[address] BLASTS TOTAL PER COUNTED LEUKOCYTES BY MANUAL COUNT Normal [facility] Comment on above: Performed By: #### L [id number], [id number], [id number] ####Cargo Inspector: UMBERTO JOHNSON ([id number])[facility] [place] (SBHLAB)[address] DACROCYTES PRESENCE IN BLOOD BY LIGHT MICROSCOPY Slight Abnormal (none) [facility] Comment on above: Performed By: #### L [id number], [id number], [id number] ####Cargo Inspector: UMBERTO JOHNSON ([id number])[facility] [facility] (SBHLAB)[address] EOSINOPHILS TOTAL PER COUNTE D LEUKOCYTES BY MANUAL COUNT Normal [facility] Comment on above: Performed By: #### L [id number], [id number], [id number] ####Cargo Inspector: UMBERTO JOHNSON ([id number])[facility] [place] (SBHLAB)[address] HYPERSEGMENTED NEUTROPHILS I N BLOOD BY LIGHT MICROSCOPY (PRESENT) Present Abnormal (none) [facility] Comment on above: Performed By: #### L [id number], [id number], [id number] ####Cargo Inspector: UMBERTO JOHNSON ([phone])[facility] [place] (SBHLAB)[address] HYPOCHROMIA (PRESENCE) IN BLOOD BY LIGHT MICROSCOPY Slight Abnormal (none) [facility] Comment on above: Performed By: #### L [id number], [id number], [id number] ####Cargo Inspector: UMBERTO JOHNSON ([id number])[facility] [place] (SB[place])[address] [place] [address] [place] LYMPHOCYTE VARIANT/100 LEUKOCYTES IN BLOOD- CELLAVISION 2 % High <=0 [facility] Comment on above: Performed By: #### L [id number], [id number], [id number] ####Cargo Inspector: UMBERTO JOHNSON ([id number])[facility] [place] (SB[place])[address] LYMPHOCYTES (10*3/UL) IN BLOOD-CELLAVISION 0.3 10*3/uL Low 1.0-4.3 [facility] Comment on above: Performed By: #### L [id number], [id number], [id number] ####Cargo Inspector: UMBERTO JOHNSON ([phone])[facility] [place] ([place])[address] [place] [address] [place] LYMPHOCYTES TOTAL PER COUNTE D LEUKOCYTES BY MANUAL COUNT 4 Normal [facility] Comment on above: Performed By: #### L [id number], [id number], [id number] ####Cargo Inspector: UMBERTO JOHNSON ([id number])[facility] [place] ([place])[address] [place] [address] [place] LYMPHOCYTES/100 LEUKOCYTES I N BLOOD-CELLAVISION 4 % Low 15-45 [facility] Comment on above: Performed By: #### L [id number], [id number], [id number] ####Cargo Inspector: UMBERTO JOHNSON ([id number])[facility] [place] ([place])[address] [place] [address] [place] METAMYELOCYTES TOTAL PER COUNTED LEUKOCYTES BY MANUAL COUNT Normal [facility] Comment on above: Performed By: #### L [id number], [id number], [id number] ####Cargo Inspector: UMBERTO JOHNSON ([id number])[facility] [place] ([place])[address] [place] [address] [place] MONOCYTES (10*3/UL) IN BLOOD-CELLAVISION 0.3 10*3/uL Normal 0.0-0.9 [facility] Comment on above: Performed By: #### L [id number], [id number], [id number] ####Cargo Inspector: UMBERTO JOHNSON ([id number])[facility] [place] ([place])[address] [place] [address] [place] MONOCYTES TOTAL PER COUNTED LEUKOCYTES BY MANUAL COUNT 3 Normal [facility] Comment on above: Performed By: #### L [id number], [id number], [id number] ####Cargo Inspector: UMBERTO JOHNSON ([id number])[facility] [place] ([place])[address] [place] [address] [place] MONOCYTES/100 LEUKOCYTES IN BLOOD-LUCY 3 % Low 5-13 [facility] Comment on above: Performed By: #### L [id number], [id number], [id number] ####Cargo Inspector: UMBERTO JOHNSON ([id number])[facility] [place] ([place])[address] [place] [address] [place] MYELOCYTES COUNTED BY MANUAL COUNT [facility] Comment on above: Performed By: #### L [id number], [id number], [id number] ####Cargo Inspector: UMBERTO JOHNSON ([id number])[facility] [place] ([place])[address] [place] [address] [place] NEUTROPHILS BAND FORM/100 LEUKOCYTES IN BLOOD-CELLAVISI 1 % High <=0 [facility] Comment on above: Performed By: #### L [id number], [id number], [id number] ####Cargo Inspector: UMBERTO JOHNSON ([id number])[facility] [place] ([place])[address] [place] [address] [place] NEUTROPHILS TOTAL PER COUNTE D LEUKOCYTES BY MANUAL COUNT 90 Normal [facility] Comment on above: Performed By: #### L [id number], [id number], [id number] ####Cargo Inspector: UMBERTO JOHNSON ([id number])[facility] (SBHLAB)[address] [place] [address] [place] NUCLEATED ERYTHROCYTES/100 LEUKOCTES IN BLOOD-CELLAVISION 1 % Normal 0-2 [facility] Comment on above: Performed By: #### L [id number], [id number], [id number] ####Cargo Inspector: UMBERTO JOHNSON ([id number])[facility] (SBHLAB)[address] [place] [address] [place] OVALOCYTES PRESENCE IN BLOOD BY LIGHT MICROSCOPY Slight Abnormal (none) [facility] Comment on above: Performed By: #### L [id number], [id number], [id number] ####Cargo Inspector: UMBERTO JOHNSON ([id number])[facility] (SBHLAB)[address] [place] [address] [place] POIKILOCYTOSIS (PRESENCE) IN BLOOD BY LIGHT MICROSCOPY Slight Abnormal (none) [facility] Comment on above: Performed By: #### L [id number], [id number], [id number] ####Cargo Inspector: UMBERTO JOHNSON ([id number])[facility] (SBHLAB)[address] [place] [address] [place] POLYCHROMASIA IN BLOOD BY LIGHT MICROSCOPY Slight Abnormal (none) [facility] Comment on above: Performed By: #### L [id number], [id number], [id number] ####Cargo Inspector: UMBERTO JOHNSON ([id number])[facility] (SBHLAB)[address] [place] [address] [place] PROMYELOCYTES TOTAL PER COUNTED LEUKOCYTES BY MANUAL COUNT Normal [facility] Comment on above: Performed By: #### L [id number], [id number], [id number] ####Cargo Inspector: UMBERTO JOHNSON ([id number])[facility] [place] (SB[place])[address] [place] [address] [place] RBC MORPHOLOGY IN BLOOD abnormal Normal [facility] Comment on above: Performed By: #### L [id number], [id number], [id number] ####Cargo Inspector: UMBERTO JOHNSON ([phone])[facility] CAMPUSSusie [facility] (SBHLAB)[address] [place] [address] [place] SEGMENTED NEUTROPHILS (10*3/UL) IN BLOOD-CELLAVISION 7.7 10*3/uL High 1.8-7.5 [facility] Comment on above: Performed By: #### L [id number], [id number], [id number] ####Cargo Inspector: UMBERTO JOHNSON ([id number])[facility] (SBHLAB)[address] [place] [address] [place] SEGMENTED NEUTROPHILS/100 LEUKOCYTES-CE 90 % High 38-82 [facility] Comment on above: Performed By: #### L [id number], [id number], [id number] ####Cargo Inspector: UMBERTO JOHNSON ([id number])[facility] (SBHLAB)[address] [place] [address] [place] STOMATOCYTES IN BLOOD BY LIGHT MICROSCOPY Slight Abnormal (none) [facility] Comment on above: Performed By: #### L [id number], [id number], [id number] ####Cargo Inspector: UMBERTO JOHNSON ([phone])[facility] (SBAB)[address] [place] [address] [place] UNCLASSIFIED CELLS TOTAL PER COUNTED LEUKOCYTES BY MANUAL COUNT Normal [facility] Comment on above: Performed By: #### L [id number], [id number], [id number] ####Cargo Inspector: UMBERTO JOHNSON ([id number])[facility] (SBHLAB)[address] [place] [address] [place] VARIANT LYMPHOCYTES (10*3/UL ) IN BLOOD-CELLAVISION 0.2 10*3/uL High <=0.0 [facility] Comment on above: Performed By: #### L [id number], [id number], [id number] ####Cargo Inspector: UMBERTO JOHNSON ([phone])[facility] (SBHLAB)[address] VARIANT LYMPHOCYTES TOTAL PE R COUNTED LEUKOCYTES BY MANUAL COUNT 2 Normal [facility] Comment on above: Performed By: #### L [id number], [id number], [id number] ####Cargo Inspector: UMBERTO JOHNSON ([id number])[facility] (SBHLAB)[address] No Panel Informationon 06-23 No evidence of deep vein or superficial vein thrombosis in the left lower extremity. Vessels demonstrate normal compressibility, color filling, and phasic and spontaneous flow. Contralateral imaging of the right common femoral vein was normal. Enlarged lymph nodes present in the left groin. Right Lower Venous For comparison purposes, the right common femoral vein was briefly interrogated. The vein demonstrates normal color filling and compressibility. Doppler flow was phasic and spontaneous. Left Lower Venous No evidence of deep vein or superficial vein thrombosis. The common femoral, saphenofemoral junction, femoral, popliteal, gastrocnemius, soleal, greater saphenous, posterior tibial, and peroneal veins were imaged in the transverse view and showed normal compressibility. The common femoral, middle femoral, and popliteal veins were imaged in the longitudinal view and showed normal color filling and normal phasic and spontaneous flow. Small Saphenous Vein: Not visualized. Enlarged lymph nodes noted in the left groin. Preliminary Report Preliminary report called to Asher Rodriguez DO on 06/23/2024 at 12:51 EDT. [employer] Department Head Details A barry scale, color Doppler imaging and spectral Doppler analysis ultrasound was performed. During the study longitudinal and transverse views were obtained. Pulsed wave doppler was performed. The exam was performed with the patient in the supine position. Overall the study quality was good. CV CPACS Atypical Lymphocytes Manual 2 [facility] Bands Manual 1 [facility] Basophils Manual [facility] Blasts Manual [facility] Healt h Eosinophils Manual [facility] Interpretation and review of laboratory results Abnormal [facility] Lymphocytes Manual 4 [facility] Metamyelocytes Manual [facility] Monocytes Manual 3 [facility] alth Myelocytes Manual [facility] ealth Neutrophils Manual 90 [facility] Promyelocytes Manual [facility] Unclassified Cells, Manual [facility] Interpretation and review of laboratory results Normal [facility] SEDIMENTATION RATE, AUTOMATE Don 06-23-2024 SEDIMENTATION RATE, ERYTHROCYTE 37 mm/hr High 0-10 [facility] Comment on above: Performed By: #### L [id number], [id number], [id number] ####Cargo Inspector: UMBERTO JOHNSON ([id number])[facility] [place] (SBHLAB)[address] [place] [address] XR Tibia and Fibula - left 2 Viewson 06-23-2024 1. No acute osseous abnormality. 2. Diffuse soft tissue swelling. No radiopaque foreign body. Report Dictated on Electronically Signed By: Mago Falcon MD Electronically Signed Date/Time: 06/23/2024 11:28 AM EDT [facility] [employer] Patient Name: SOPHIE HICKS : 1965 Exam Date/Time: 06/23/2024 11:10 Procedure: XR TIBIA FIBULA 2 VIEWS LEFT Ordering Provider: RODRIGUEZ AKASH Reason For Exam: fall, LLE laceration (5 days ago), swollen edema EXAM: XR Left Tibia and Fibula, 2 Views CLINICAL INDICATION: fall, LLE laceration (5 days ago), swollen edema TECHNIQUE: Frontal and lateral views of the left tibia and fibula. COMPARISON: Left knee radiographs from 09/06/2021 FINDINGS: BONES/JOINTS: Tiny chronic appearing corticated ossification adjacent to the medial malleolus. Minimal degenerative change of the medial compartment of the knee. Minimal patellofemoral compartment DJD. Minimal degenerative change of the tibiotalar joint. Posterior and plantar calcaneal enthesophytes. Superior and inferior patellar enthesophytes. No acute fracture. No dislocation. No acute appearing focal cortical erosion or periosteal reaction. SOFT TISSUES: Diffuse soft tissue swelling. No radiopaque foreign body in the soft tissues. [facility] Mago Falcon MD - 06/23/2024 Patient Name: SOPHIE HICKS : 1965 Exam Date/Time: 06/23/2024 11:10 Procedure: XR TIBIA FIBULA 2 VIEWS LEFT Ordering Provider: RODRIGUEZ AKASH Reason For Exam: fall, LLE laceration (5 days ago), swollen edema EXAM: XR Left Tibia and Fibula, 2 Views CLINICAL INDICATION: fall, LLE laceration (5 days ago), swollen edema TECHNIQUE: Frontal and lateral views of the left tibia and fibula. COMPARISON: Left knee radiographs from 09/06/2021 FINDINGS: BONES/JOINTS: Tiny chronic appearing corticated ossification adjacent to the medial malleolus. Minimal degenerative change of the medial compartment of the knee. Minimal patellofemoral compartment DJD. Minimal degenerative change of the tibiotalar joint. Posterior and plantar calcaneal enthesophytes. Superior and inferior patellar enthesophytes. No acute fracture. No dislocation. No acute appearing focal cortical erosion or periosteal reaction. SOFT TISSUES: Diffuse soft tissue swelling. No radiopaque foreign body in the soft tissues. IMPRESSION: 1. No acute osseous abnormality. 2. Diffuse soft tissue swelling. No radiopaque foreign body. Report Dictated on Electronically Signed By: Mago Falcon MD Electronically Signed Date/Time: 06/23/2024 11:28 AM EDT [facility] Radiology Study observation (narrative) [facility] XR Tibia and Fibula - left 2 ViewsOrdered By: Mago Falcon on 06-23-2024 [facility] Work Phone: 36on 06-20-2024 36 Awesome, thank you! Normal [facility] 36 I spoke to patient. He states his foot slipped off of something and slid along something sharp. He protected his right hip. No pain or concerns about the hip at this time. Scheduled to see on 06/29. I did send in for refill of tylenol. Normal [facility] 36 Ok to call and get the low down, make sure hip is doing ok. See what circumstances were making him fall. Thank you! Normal [facility] ED Nursing Noteon 06-18-2024 ED Nursing Note Normal [facility] ED Provider Noteon ED Provider Note Normal [facility] No Panel Informationon 06-18 Shelbi Gandara PA-C 06/18/2024 8:57 PM Laceration Repair Performed by: Shelbi Gandara PA-C Authorized by: Shelbi Gandara PA-C Consent: Consent obtained: Verbal Consent given by: Patient Risks discussed: Infection, pain, retained foreign body, tendon damage, poor cosmetic result, need for additional repair, nerve damage, poor wound healing and vascular damage [place] protocol: Patient identity confirmed: Verbally with patient Anesthesia: Anesthesia method: Local infiltration Local anesthetic: Lidocaine 1% WITH epi Laceration details: Location: Leg Leg location: L lower leg Length (cm): 7 Depth (mm): 1 Exploration: Imaging outcome: foreign body not noted Wound exploration: wound explored through full range of motion Contaminated: no Treatment: Area cleansed with: Saline and Shur-Clens Amount of cleaning: Standard Skin repair: Repair method: Sutures Suture size: 3-0 Wound skin closure material used: Ethilon. Suture technique: Simple interrupted Number of sutures: 9 Approximation: Approximation: Close Repair type: Repair type: Simple Post-procedure details: Dressing: Non-adherent dressing Procedure completion: Tolerated [facility] 36on 06-16-2024 36 Agree, monitor for any worsening. Normal [facility] 36 Normal [place] [address]on 06-10-[address] [facility] 36 Attempted to call patient but went directly to voicemail. Unsure what swelling he is referring to but if its post op swelling I can send in a MDP. Normal [facility] 36 [place] [address]on 06-08-2024 36 Called patient to check in at 2 week post-op louisa. Patient did not answer, left a voice message stating to call our office or reach out via [employer] with further questions or concerns. We will plan on seeing them in office at the 4 week post-op visit. Normal [place] [address]on 06-03-2024 36 POD #7 RTHA Titi states he is doing well. He has been sore. He has worked with home PT. Incisional dressing was removed today. He states the incision looks good. Denies any questions or concerns at this time. Normal [facility] [id number] 06-02-2024 [id number] Patient Choice Patient Name: SOPHIE HICKS Date of : [address] [facility] 36on 05-30-2024 36 He follows with PM and and at baseline he receives percocet and tramadol every month. I can send him in a short course of oxycodone to take for break through pain given recent surgery. Rx signed. PDMP reviewed. [facility] 36 Name of Caller: Titi Contact Reason for Appointment: Pt is requesting something for pain to be called into his verified pharmacy in chart. Thank you Office Name: Ortho [facility] 30on 05-28-[address] [facility] [address] [facility] [id number] 05-28-[id number] [facility] BASIC METABOLIC PANELon 05-14 Anion gap [Moles/Vol] 9 mmol/L Normal 3-13 [facility] Comment on above: Performed By: #### L AB15 ####Cargo Inspector: UMBERTO JOHNSON ([id number])[facility] ([facility])[address] Calcium [Mass/Vol] 8.3 mg/dL Low 8.8-10.0 [facility] Comment on above: Performed By: #### L AB15 ####Cargo Inspector: UMBERTO JOHNSON ([phone])[facility] ([facility])[address] [place] [address] [place] Chloride [Moles/Vol] 106 mmol/L Normal 98-107 [facility] Comment on above: Performed By: #### L AB15 ####Cargo Inspector: UMBERTO JOHNSON ([id number])[facility] ([facility])[address] [place] [address] [place] CO2 [Moles/Vol] 19 mmol/L Low 22-29 [facility] Comment on above: Performed By: #### L AB15 ####Cargo Inspector: UMBERTO JOHNSON ([id number])[facility] (SBHLAB)[address] [place] [address] [place] Creatinine [Mass/Vol] 1.29 mg/dL High 0.72-1.25 [facility] Comment on above: Performed By: #### L AB15 ####Cargo Inspector: UMBERTO JOHNSON ([id number])[facility] (SBHLAB)[address] [place] [address] [place] GLOMERULAR FILTRATION RATE ML/MIN/1.73 SQ M.PREDICTED 63.5 mL/min/1.73m*2 Normal >60.0 [facility] Comment on above: Result Comment: Calc ulation based on the Chronic Kidney Disease Epidemiology Collaboration (CKD-EPI) equation refit without adjustment for race Performed By: #### L AB15 ####Cargo Inspector: UMBERTO JOHNSON ([id number])[facility] (SBHLAB)[address] Glucose [Mass/Vol] 176 mg/dL High 74-100 [facility] Comment on above: Performed By: #### L AB15 ####Cargo Inspector: UMBERTO JOHNSON ([phone])[facility] (HLAB)[address] Potassium [Moles/Vol] 4.4 mmol/L Normal 3.5-5.1 [facility] Comment on above: Result Comment: [facility] potassium values may be up to 0.5 mmol/L lower than serum values. Performed By: #### L AB15 ####Cargo Inspector: UMBERTO JOHNSON ([id number])[facility] (SBHLAB)[address] [place] [address] [place] Sodium [Moles/Vol] 134 mmol/L Low 136-145 [facility] Comment on above: Performed By: #### L AB15 ####Cargo Inspector: UMBERTO JOHNSON ([id number])[facility] (SBHLAB)[address] [place] [address] [place] Urea nitrogen [Mass/Vol] 18 mg/dL Normal 9-23 [facility] Comment on above: Performed By: #### L AB15 ####Cargo Inspector: UMBERTO JOHNSON ([phone])[facility] (SBHL[place])[address] Basic metabolic 1998 panelon 05-28-2024 Anion gap [Moles/Vol] 9 mmol/L 3 - 13 mmol/L [facility] Calcium [Mass/Vol] 8.3 mg/dL Low 8.8 - 10. 0 mg/dL [facility] Chloride [Moles/Vol] 106 mmol/L 98 - 10 7 mmol/L [facility] CO2 [Moles/Vol] 19 mmol/L Low 22 - 29 mmol/L [facility] Creatinine [Mass/Vol] 1.29 mg/dL High 0.72 - 1.25 mg/dL [facility] GFR/1.73 sq M.predicted (S/P/Bld) [Vol rate/Area] 63.5 mL/min - PINF [facility] Comment on above: Calculation based on the Chronic Kidney Disease Epidemiology Collaboration (CKD-EPI) equation refit without adjustment for race Glucose [Mass/Vol] 176 mg/dL High 74 - 100 mg/dL [facility] Interpretation and review of laboratory results Abnormal [facility] Potassium [Moles/Vol] 4.4 mmol/L 3.5 - 5.1 mmol/L [facility] Comment on above: Plasma potassium chuy ues may be up to 0.5 mmol/L lower than serum values. Sodium [Moles/Vol] 134 mmol/L Low 136 - 145 mmol/L [facility] Urea nitrogen [Mass/Vol] 18 mg/dL 9 - 23 mg/dL [facility] HEMOGLOBIN AND HEMATOCRIT, B LOODon 05-28-2024 Hematocrit (Bld) [Volume fraction] 35.8 % Low 40.0-52.0 [facility] Comment on above: Performed By: #### L [id number] ####Cargo Inspector: UMBERTO JOHNSON ([id number])[facility] (SBHL[facility])[address] Hemoglobin (Bld) [Mass/Vol] 11.7 g/dL Low 13.0-18. 0 [facility] Comment on above: Performed By: #### L [id number] ####Cargo Inspector: UMBERTO JOHNSON ([id number])[facility] [facility]ENTERL[facility] (SBHLAB)[address] [place] [address] Hemoglobin (Bld) [Mass/Vol]o n 05-28-2024 Hematocrit (Bld) [Volume fraction] 35.8 % Low 40.0 - 52.0 % [facility] Interpretation and review of laboratory results Abnormal [facility] Laboratory - Hematology and Cell countson 05-28-2024 Hemoglobin (Bld) [Mass/Vol] 11.7 g/dL Low 13.0 - 18.0 g/dL [facility] Nursing Noteon 05-28-2024 Nursing Note Reviewed home going instructions with patient. Questions asked and answered, verbalized understanding. Normal [facility] Progress Noteon 05-28-2024 Progress Note Normal [facility] Progress Note Normal [facility] Progress Note Normal [facility] Progress Note Normal [facility] [id number] 05-27-2024 [id number] Normal [facility] [id number] 05-27-2024 [id number] Normal [facility] Anesthesia Noteon 05-27-2024 Anesthesia Note Normal [facility] Consulton 05-27-2024 Consult Normal [facility] No Panel Informationon 05-27 There is no interpretation needed for this exam. IMAGING Nursing Noteon 05-27-2024 Nursing Note Normal [facility] Op Noteon 05-27-2024 Op Note Normal [facility] Progress Noteon 05-27-2024 Progress Note Normal [facility] XR Pelvis 1 or 2 Viewson Baseline exam status post interval right total hip arthroplasty Report Dictated on Electronically Signed By: Gamaliel Barnes MD Electronically Signed Date/Time: 05/27/2024 4:52 PM [facility] Patient Name: SOPHIE HICKS : 1965 Exam Date/Time: 05/27/2024 16:13 Procedure: XR PELVIS 1-2 VIEWS Ordering Provider: RICO BRITTANY Reason For Exam: s/p GEORGE EXAMINATION: XR PELVIS 1-2 VIEWS HISTORY: s/p GEORGE. TECHNIQUE: XR PELVIS 1-2 VIEWS COMPARISON: Radiograph 05/11/2024 RESULT: Status post right total hip arthroplasty. Hardware is grossly intact. Alignment is satisfactory without acute fracture or dislocation within constraints of AP view. Soft tissue gas present, expected postoperatively. Remaining bony pelvis appears unchanged. [facility] Gamaliel Barnes MD - 05/27/2024 Patient Name: SOPHIE HICKS : 1965 Exam Date/Time: 05/27/2024 16:13 Procedure: XR PELVIS 1-2 VIEWS Ordering Provider: RICO BRITTANY Reason For Exam: s/p GEORGE EXAMINATION: XR PELVIS 1-2 VIEWS HISTORY: s/p GEORGE. TECHNIQUE: XR PELVIS 1-2 VIEWS COMPARISON: Radiograph 05/11/2024 RESULT: Status post right total hip arthroplasty. Hardware is grossly intact. Alignment is satisfactory without acute fracture or dislocation within constraints of AP view. Soft tissue gas present, expected postoperatively. Remaining bony pelvis appears unchanged. IMPRESSION: Baseline exam status post interval right total hip arthroplasty Report Dictated on Electronically Signed By: Gamaliel Barnes MD Electronically Signed Date/Time: 05/27/2024 4:52 PM EST [facility] Radiology Study observation (narrative) [facility] XR Pelvis 1 or 2 ViewsOrdere d By: Gamaliel Barnes on 05-27-2024 [facility] Work Phone: [phone] 05-24-2024 [id number] Normal [facility] 36on 05-24-2024 36 Noted. Normal [facility] 36 Patient states his doesn't get off work until 9:30am but she will be able to get him to surgery on time as long as the time does not change. FYI Normal [facility] 94on 05-24-2024 94 Normal [facility] Anesthesia Noteon 05-24-2024 Anesthesia Note Normal [facility] Progress Noteon 05-24-2024 Progress Note [facility] CT HIP RIGHT WO IV CONTRASTo n 05-19-2024 CT HIP RIGHT WO IV CONTRAST Normal [facility] CT Hip - right WO contraston 05-19-[address] of the pelvis and knees for the purposes of presurgical planning according to the ALF protocol. Report Dictated on Electronically Signed By: Benjamín Denney MD Electronically Signed Date/Time: 05/19/2024 7:10 AM EST [facility] Patient Name: SOPHIE HICKS : 1965 Exam Date/Time: 05/19/2024 06:26 Procedure: CT HIP RIGHT WO IV CONTRAST Ordering Provider: ANDERSON RYAN Reason For Exam: Hip surgical planning Right Hip CT without contrast INDICATION: Presurgical planning according to the ALF protocol. TECHNIQUE: Transaxial axial images through the pelvis to the level of the mid femur are obtained without contrast. Additional transaxial images through the level of the right and left knees are obtained without contrast. Dose reduction was employed with automated exposure control. COMPARISON: None FINDINGS: No free fluid or lymphadenopathy in the visualized pelvis. No evidence of bowel obstruction or inflammatory change. No aneurysmal dilation of the aortoiliac vessels. Right hip osteoarthritis. No fracture or dislocation. The left hip is intact without evidence of fracture, dislocation, or osteonecrosis. The visualized pelvic ring is intact without evidence of fracture or diastases. No erosion or widening of the sacroiliac joints. Multilevel degenerative changes of the lower lumbar spine/lumbosacral junction. No focal osseous lesions. The knee joints are intact without evidence of fracture or dislocation. [facility] Benjamín Denney MD - 05/19/2024 Patient Name: SOPHIE HICKS : 1965 Exam Date/Time: 05/19/2024 06:26 Procedure: CT HIP RIGHT WO IV CONTRAST Ordering Provider: ANDERSON RYAN Reason For Exam: Hip surgical planning Right Hip CT without contrast INDICATION: Presurgical planning according to the ALF protocol. TECHNIQUE: Transaxial axial images through the pelvis to the level of the mid femur are obtained without contrast. Additional transaxial images through the level of the right and left knees are obtained without contrast. Dose reduction was employed with automated exposure control. COMPARISON: None FINDINGS: No free fluid or lymphadenopathy in the visualized pelvis. No evidence of bowel obstruction or inflammatory change. No aneurysmal dilation of the aortoiliac vessels. Right hip osteoarthritis. No fracture or dislocation. The left hip is intact without evidence of fracture, dislocation, or osteonecrosis. The visualized pelvic ring is intact without evidence of fracture or diastases. No erosion or widening of the sacroiliac joints. Multilevel degenerative changes of the lower lumbar spine/lumbosacral junction. No focal osseous lesions. The knee joints are intact without evidence of fracture or dislocation. IMPRESSION: Limited CT of the pelvis and knees for the purposes of presurgical planning according to the ALF protocol. Report Dictated on Electronically Signed By: Benjamín Denney MD Electronically Signed Date/Time: 05/19/2024 7:10 AM EST [facility] Radiology Study observation (narrative) [facility] CT Hip - right WO contrastOr dered By: Benjamín Denney on 05-19-2024 [facility] [employer] Work Phone: Progress Noteon 05-19-2024 Progress Note Alf scan in Normal [facility] 36on 05-18-2024 36 Titi notified of PAT/Joint [employer] times. [facility] [address] [facility] 36on 05-17-2024 36 Pt called asking to let Dr Anderson know that he got his blood work done and pt states he should be all set then for his surgery. Normal [place] [phone] No auth needed for Medicare. Normal [facility] 36on 05-16-[address] [facility] 36 Patient has been scheduled. Normal [facility] 36 Pt transferred to [facility]. Normal [place] [address] I called and left a vm with the patients about Titi retuning call to get scheduled for surgery. If patient returns call please transfer the patient to me. [place] [phone] Can you speak with patient regarding cardiac clearance and scheduling sx? Can only take Tylenol due to kidney issues so no NSAIDS Normal [place] [address] Patient called in and states Cardiology cleared them for surgery. Patient is also asking for pain medication but does not want Oxycotin. Please advise. Normal [facility] 36 I called and left a vm for the patient about scheduling. Normal [facility] 36on 05-14-2024 36 Normal [facility] 36on 05-13-2024 36 I called and left the patient a vm about getting scheduled for surgery. Normal [facility] 36 Normal [facility] ECG 12 lead - CLINIC PERFORM EDon 05-13-2024 Sinus Rhythm WITHIN NORMAL LIMITS [facility] Progress Noteon 05-13-2024 Progress Note Normal [facility] Progress Noteon 05-11-2024 Progress Note Normal [facility] Progress Noteon 04-29-2024 Progress Note Normal [facility] VAIBHAV SCREEN, IFA, W/REFL TITE R AND PATTERNon 04-04-2024 VAIBHAV SCREEN, IFA Negative Normal NEGATIVE [facility] Comment on above: Order Comment: 0; 0; 0 Result Comment: VAIBHAV IFA is a first line screen for detecting the presence of up to approximately 150 autoantibodies in various autoimmune diseases. A negative VAIBHAV IFA result suggests an VAIBHAV-associated autoimmune disease is not present at this time, but is not definitive. If there is high clinical suspicion for Sjogren's syndrome, testing for anti-SS-A/Ro antibody should be considered. Anti-Karlie-1 antibody should be considered for clinically suspected inflammatory myopathies. AC-0: Negative International Consensus on VAIBHAV Patterns (https://doi.org/10.1515/onjr-7366-5244) For additional information, please refer to http://education.Gesplan.Zazoom/faq/KYV537 (This link is being provided for informational/ educational purposes only.) Performed By: #### 4 [id number], [id number], 249 #### [facility] [address], [address] [place] [id number] Cargo Inspector: Grayson Fulton MD C-REACTIVE PROTEINon 024 CRP [Mass/Vol] mg/L Normal <8.0 [facility] Comment on above: Performed By: #### 4 [id number], [id number], 249 #### [facility] [address], [address] [place] [id number] Cargo Inspector: Grayson Fulton MD RHEUMATOID FACTORon 04-04-20 24 RHEUMATOID FACTOR <10 Normal <14 [facility] Comment on above: Performed By: #### 4 [id number], 4420, 249 #### [facility] [address], [address] [place] [address] Cargo Inspector: Grayson Fulton MD XR Hip - right 3 Viewson 1. Generalized degenerative arthritis of the right hip. 2. Minimal shallow superolateral femoral head-neck junction compatible with mild MIS. Correlate with clinical parameters. Report Dictated on Electronically Signed By: Louie Smith MD Electronically Signed Date/Time: 04/04/2024 4:39 PM [facility] Patient Name: SOPHIE HICKS : 1965 Exam Date/Time: 04/01/2024 11:11 Procedure: XR HIP 2 OR 3 VW RIGHT Ordering Provider: FERNANDEZ JOSEPH Reason For Exam: [id number] CLINICAL INFORMATION: Right hip pain. No provided history of trauma. Right hip: An AP view of the pelvis and AP and frogleg lateral views of the right hip demonstrate no evidence of acute fracture or femoral head dislocation. There is superior right hip joint narrowing without [id number]. Stable lateral superior acetabular osteophytes. No bone erosion or periosteal reaction is seen. There is a minimal shallow femoral neck cam lesion at the superolateral femoral had-negative junction compatible with mild femoroacetabular impingement (MIS). The pelvis is intact. The left hip appears to be well maintained [facility] Louie Smith MD - 04/04/2024 Patient Name: SOPHIE HICKS : 1965 Exam Date/Time: 04/01/2024 11:11 Procedure: XR HIP 2 OR 3 VW RIGHT Ordering Provider: FERNANDEZ JOSEPH Reason For Exam: [id number] CLINICAL INFORMATION: Right hip pain. No provided history of trauma. Right hip: An AP view of the pelvis and AP and frogleg lateral views of the right hip demonstrate no evidence of acute fracture or femoral head dislocation. There is superior right hip joint narrowing without [id number]. Stable lateral superior acetabular osteophytes. No bone erosion or periosteal reaction is seen. There is a minimal shallow femoral neck cam lesion at the superolateral femoral had-negative junction compatible with mild femoroacetabular impingement (MIS). The pelvis is intact. The left hip appears to be well maintained IMPRESSION: 1. Generalized degenerative arthritis of the right hip. 2. Minimal shallow superolateral femoral head-neck junction compatible with mild MIS. Correlate with clinical parameters. Report Dictated on Electronically Signed By: Louie Smith MD Electronically Signed Date/Time: 04/04/2024 4:39 PM EST [employer] XR Hip - right 3 ViewsOrdere d By: Louie Smith on 04-04-2024 [employer] Work Phone: XR Hip - right 3 Viewson Radiology Study observation (narrative) [facility] 36on 03-09-2024 36 [facility] XR Shoulder - right 2 Viewso n 02-29-2024 1. Postsurgical but no other significant radiographic abnormality of the right shoulder. 2. Hypertrophy of the acromioclavicular joint. Report Dictated on Electronically Signed By: Louie Smith MD Electronically Signed Date/Time: 02/29/2024 4:40 PM [facility] 1965 [id number] Exam Date/Time: 02/26/2024 14:03 Procedure: XR SHOULDER 2+ VIEWS RIGHT Ordering Provider: FERNANDEZ JOSEPH Reason For Exam: acute pain of right shoulder CLINICAL INFORMATION: Chronic right shoulder pain for approximately six months. Prior rotator cuff tear repair. No known trauma. Right shoulder: AP, Grashey and transscapular lateral views demonstrate no evidence of acute fracture or dislocation. The glenohumeral joint and acromiohumeral interval are well maintained. There is mild hypertrophy of the acromioclavicular joint. There are no abnormal soft tissue calcifications. There are anchor sutures related to the superior aspect of the humeral head. [facility] Louie Smith MD - 02/29/2024 Patient Name: SOPHIE HICKS [facility] 1965 [id number] Exam Date/Time: 02/26/2024 14:03 Procedure: XR SHOULDER 2+ VIEWS RIGHT Ordering Provider: FERNANDEZ JOSEPH Reason For Exam: acute pain of right shoulder CLINICAL INFORMATION: Chronic right shoulder pain for approximately six months. Prior rotator cuff tear repair. No known trauma. Right shoulder: AP, Grashey and transscapular lateral views demonstrate no evidence of acute fracture or dislocation. The glenohumeral joint and acromiohumeral interval are well maintained. There is mild hypertrophy of the acromioclavicular joint. There are no abnormal soft tissue calcifications. There are anchor sutures related to the superior aspect of the humeral head. IMPRESSION: 1. Postsurgical but no other significant radiographic abnormality of the right shoulder. 2. Hypertrophy of the acromioclavicular joint. Report Dictated on Electronically Signed By: Louie Smith MD Electronically Signed Date/Time: 02/29/2024 4:40 PM EST [facility] XR Shoulder - right 2 ViewsO rdered By: Louie Smith on 02-29-2024 [employer] Work Phone: XR Shoulder - right 2 Viewso n 02-26-2024 Radiology Study observation (narrative) [facility] [employer] Basic metabolic 1998 panelon 10-02-2023 Anion gap [Moles/Vol] 8 mmol/L 3 - 13 mmol/L [facility] [employer] Calcium [Mass/Vol] 8.0 mg/dL Low 8.4 - 10. 4 mg/dL [facility] [employer] Chloride [Moles/Vol] 104 mmol/L 98 - 10 7 mmol/L [facility] [employer] CO2 [Moles/Vol] 26 mmol/L 22 - 30 mmol/L [facility] [employer] Creatinine [Mass/Vol] 0.98 mg/dL 0.66 - 1.25 mg/dL [facility] [employer] GFR/1.73 sq M.predicted MDRD (S/P/Bld) [Vol rate/Area] 88.8 mL/min/{1.73_m2} - PINF [facility] Comment on above: Calculation based on the Chronic Kidney Disease Epidemiology Collaboration (CKD-EPI) equation refit without adjustment for race Glucose [Mass/Vol] 92 mg/dL 70 - 100 mg/dL [facility] Interpretation and review of laboratory results Abnormal [facility] [employer] Potassium [Moles/Vol] 3.7 mmol/L 3.5 - 5.1 mmol/L [facility] [employer] Sodium [Moles/Vol] 138 mmol/L 135 - 145 mmol/L [facility] [employer] Urea nitrogen [Mass/Vol] 13 mg/dL 9 - 20 mg/dL [facility] [employer] CBC W Auto Differential pane l (Bld)on 10-02-2023 Basophils (Bld) [#/Vol] 0.1 10*3/uL 0.0 - 0.2 10*3/uL [facility] [employer] Basophils/100 WBC (Bld) 1.1 % 0.0 - 2.0 % [facility] [employer] Eosinophils (Bld) [#/Vol] 0.2 10*3/uL 0. 0 - 0.5 10*3/uL [facility] [employer] Eosinophils/100 WBC (Bld) 3.5 % 0. 0 - 6.0 % [facility] [employer] Erythrocyte distribution width (RBC) [Ratio] 12.7 % 11.5 - 15.0 % [facility] [employer] Hematocrit (Bld) [Volume fraction] 32.2 % Low 40.0 - 52.0 % [facility] [employer] Hemoglobin (Bld) [Mass/Vol] 10.8 g/dL Low 13.0 - 18.0 g/dL [facility] [employer] Immature granulocytes (Bld) [#/Vol] 0.0 10*3/uL NINF - 0.1 10*3/uL [facility] [employer] Immature granulocytes/100 WB C (Bld) 0.2 % 0.0 - 2.0 % [facility] Interpretation and review of laboratory results Abnormal [facility] [employer] Lymphocytes (Bld) [#/Vol] 1.3 10*3/uL 1. 0 - 4.3 10*3/uL [facility] [employer] Lymphocytes/100 WBC (Bld) 28.8 % 15 .0 - 45.0 % [facility] MCH (RBC) [Entitic mass] 29.3 pg 26. 0 - 34.0 pg [facility] MCHC (RBC) [Mass/Vol] 33.5 % 30.5 - 36.0 % [facility] MCV (RBC) [Entitic vol] 87.5 fL 77.0 - 99.0 fL [facility] Monocytes (Bld) [#/Vol] 0.4 10*3/uL 0.0 - 0.9 10*3/uL [facility] Monocytes/100 WBC (Bld) 8.1 % 5.0 - 13.0 % [facility] Neutrophils (Bld) [#/Vol] 2.7 10*3/uL 1. 8 - 7.5 10*3/uL [facility] Neutrophils/100 WBC (Bld) 58.3 % 38 .0 - 82.0 % [facility] Nucleated RBC/100 WBC (Bld) [Ratio] 0.0 % [facility] Platelet mean volume (Bld) [Entitic vol] 8.2 fL Low 9.0 - 12.7 fL [facility] Platelets (Bld) [#/Vol] 102 10*3/uL Low 140 - 440 10*3/uL [facility] RBC (Bld) [#/Vol] 3.68 10*6/uL Low 4.40 - 5.90 10*6/uL [facility] WBC (Bld) [#/Vol] 4.6 10*3/uL 3.6 - 10.7 10*3/uL [facility] TransthoracicOrdere d By: Louisa Grissom on 10-02-2023 Ao Root Index 1.31 cm/m2 [facility] h Work Phone: Aortic Arch 3.3 cm [facility] Work Phone: Aortic Root 3.2 cm [facility] Work Phone: Ascending Aorta 2.9 cm [facility] Work Phone: Ascending Aorta Index 1.19 cm/m2 [facility] Work Phone: AV Area by Peak Velocity 3.2 cm2 [facility] Work Phone: AV Area by VTI 3.2 cm2 [facility] Work Phone: AV Mean Gradient 3 mmHg [facility] Work Phone: [phone] AV Mean Velocity 0.9 m/s [facility] Work Phone: [phone] AV Peak Gradient 6 mmHg [facility] Work Phone: [phone] AV Peak Velocity 1.3 m/s [facility] Work Phone: [phone] AV Velocity Ratio 0.69 [facility] Work Phone: AV VTI 29.3 cm [facility] Work Phone: [phone] LAMONT/BSA Peak Velocity 1.3 cm2/m2 [facility] Work Phone: LAMONT/BSA VTI 1.3 cm2/m2 [facility] Work Phone: [phone] E/E' Lateral 5.17 [facility] [employer] Work Phone: EF BP 70 % 55 - 100 % [facility] [employer] Work Phone: Fractional Shortening 2D 29 % 28 - 44 % [facility] [employer] Work Phone: Interpretation and review of laboratory results Abnormal [facility] [employer] Work Phone: IVSd 1.2 cm Abnormal 0.6 - 1.0 cm [facility] [employer] Work Phone: LA Diameter 3.1 cm [facility] [employer] Work Phone: LA Size Index 1.27 cm/m2 [facility] [employer] Work Phone: LA Volume 2C 57 mL 18 - 58 mL [facility] [employer] Work Phone: [phone] LA Volume 4C 34 mL 18 - 58 mL [facility] [employer] Work Phone: [phone] LA Volume A/L 53 mL [facility] [employer] Work Phone: LA Volume BP 48 mL 18 - 58 mL [facility] [employer] Work Phone: LA Volume Index 2C 23 mL/m2 16 - 34 mL/m2 [facility] [employer] Work Phone: [phone] LA Volume Index 4C 14 mL/m2 Abnormal 16 - 34 mL/m2 [facility] [employer] Work Phone: LA Volume Index A/L 22 mL/m2 16 - 34 mL/m2 [facility] Work Phone: LA Volume Index BP 20 ml/m2 16 - 34 ml/m2 [facility] Work Phone: LA/AO Root Ratio 0.97 [facility] Work Phone: LV E' Lateral Velocity 12 cm/s [facility] Work Phone: LV EDV A2C 78 mL [facility] Work Phone: LV EDV A4C 123 mL [facility] Work Phone: LV EDV BP 103 mL 67 - 155 mL [facility] Work Phone: LV EDV Index A2C 32 mL/m2 [facility] Work Phone: LV EDV Index A4C 50 mL/m2 [facility] Work Phone: LV EDV Index BP 42 mL/m2 [facility] Work Phone: LV Ejection Fraction A2C 60 % [facility] Work Phone: LV Ejection Fraction A4C 76 % [facility] Work Phone: LV ESV A2C 31 mL [facility] Work Phone: LV ESV A4C 30 mL [facility] Work Phone: LV ESV BP 31 mL 22 - 58 mL [facility] Work Phone: LV ESV Index A2C 13 mL/m2 [facility] He alth Work Phone: LV ESV Index A4C 12 mL/m2 [facility] alth Work Phone: LV ESV Index BP 13 mL/m2 [facility] Hea [facility] Work Phone: LV Mass 2D 153.2 g 88 - 224 g [facility] Work Phone: LV Mass 2D Index 62.8 g/m2 49 - 115 g/m2 [facility] Work Phone: LV RWT Ratio 0.63 [facility] Work Phone: LVIDd 3.8 cm Abnormal 4.2 - 5.9 cm [facility] Work Phone: LVIDd Index 1.56 cm/m2 [employer] Work Phone: LVIDs 2.7 cm [employer] Work Phone: LVIDs Index 1.11 cm/m2 [employer] Work Phone: LVOT Area 4.5 cm2 [employer] Work Phone: LVOT Cardiac Output 5.9 liter/mi nu te [employer] Work Phone: LVOT Diameter 2.4 cm [facility] [employer] Work Phone: LVOT Mean Gradient 2 mmHg [facility] Work Phone: LVOT Peak Gradient 3 mmHg [employer] Work Phone: LVOT Peak Velocity 0.9 m/s [facility] Work Phone: LVOT Stroke Volume Index 38.4 mL/m2 [employer] Work Phone: LVOT SV 93.6 ml [employer] Work Phone: LVOT VTI 20.7 cm [facility] [employer] Work Phone: LVOT:AV VTI Index 0.71 [facility] [employer] [facility] Work Phone: LVPWd 1.2 cm Abnormal 0.6 - 1.0 cm [facility] [employer] Work Phone: MV A Velocity 0.80 m/s [facility] Work Phone: MV E Velocity 0.62 m/s [facility] Work Phone: MV E Wave Deceleration Time 248.3 ms [facility] Work Phone: MV E/A 0.78 [facility] [employer] Work Phone: RA Area 4C 38.9 mL [employer] [employer] Work Phone: RA Area 4C 36.8 mL [employer] Work Phone: RV Basal Dimension 4.5 cm [facility] Work Phone: [phone] RV Free Wall Peak S' 12 cm/s [facility] Work Phone: RV Mid Dimension 4.0 cm [facility] Work Phone: Sinotubular Junction 2.6 cm [facility] Work Phone: [phone] [facility] [employer] Work Phone: US Heart Transthoracicon Left Ventricle: Left ventricle size is normal. Mildly increased wall thickness. Normal left ventricular systolic function. EF by 2D [employer]psons Biplane is 70%. Normal wall motion. Right Ventricle: Right ventricle size is normal. Normal systolic function. No significant valvular abnormalities. Left Ventricle Left ventricle size is normal. Mildly increased wall thickness. Normal left ventricular systolic function. EF by 2D Simpsons Biplane is 70%. Normal wall motion. Right Ventricle Right ventricle size is normal. Normal systolic function. Left Atrium Not well visualized. Left atrium size is normal. Right Atrium Not well visualized. Right atrium size is normal. IVC/SVC IVC diameter is normal and decreases greater than 50% during inspiration; therefore the estimated right atrial pressure is normal (~3 mmHg). Mitral Valve Valve structure is normal. Physiologically normal regurgitation. No stenosis noted. Tricuspid Valve Valve structure is normal. Trace regurgitation. Aortic Valve Trileaflet. No cusp thickening. No cusp calcification. No regurgitation. No stenosis. Pulmonic Valve The pulmonic valve visualization is suboptimal but appears to be functioning normally. Valve structure is normal. Trace regurgitation. Ascending Aorta Normal sized sinuses of Valsalva and ascending aorta. Pericardium No pericardial effusion. Septum No interatrial shunt visualized on color Doppler. Study Details Image quality: adequate. Heart rate: 58 bpm. Blood pressure: 121/66 mmHg. The underlying ECG rhythm was sinus bradycardia. Technical qualifiers: Procedure performed with the patient in a supine position. No contrast was given. Echo Additional Conclusions No significant valvular abnormalities. CV CPACS CBC panel Auto (Bld)on 09-30 Erythrocyte distribution width (RBC) [Ratio] 12.6 % 11.5 - 15.0 % [facility] [employer] Hematocrit (Bld) [Volume fraction] 35.0 % Low 40.0 - 52.0 % [facility] Hemoglobin (Bld) [Mass/Vol] 12.0 g/dL Low 13.0 - 18.0 g/dL [facility] Interpretation and review of laboratory results Abnormal [facility] MCH (RBC) [Entitic mass] 29.5 pg 26. 0 - 34.0 pg [facility] MCHC (RBC) [Mass/Vol] 34.3 % 30.5 - 36.0 % [facility] MCV (RBC) [Entitic vol] 86.0 fL 77.0 - 99.0 fL [facility] Platelet mean volume (Bld) [Entitic vol] 8.1 fL Low 9.0 - 12.7 fL [facility] Platelets (Bld) [#/Vol] 130 10*3/uL Low 140 - 440 10*3/uL [facility] RBC (Bld) [#/Vol] 4.07 10*6/uL Low 4.40 - 5.90 10*6/uL [facility] WBC (Bld) [#/Vol] 5.2 10*3/uL 3.6 - 10.7 10*3/uL [facility] CT Abdomen WO contraston Noncontrast CT of the abdomen and pelvis is negative for acute process. The bowel gas pattern is nonobstructive. Postsurgical changes are present, consistent with recent panniculectomy. No evidence of fluid collection. Report Dictated on Electronically Signed By: Corby De La Garza DO Electronically Signed Date/Time: 10/01/2023 10:15 AM [facility] RADIOLOGY SYSTEM [facility] 1965 [id number] Exam Date/Time: 10/01/2023 09:53 Procedure: CT ABDOMEN PELVIS WO IV CONTRAST Ordering Provider: FINK DANIEL Reason For Exam: abdominal pain, concern for obstruction, recent panniculectomy CT SCAN OF THE ABDOMEN AND PELVIS WITHOUT CONTRAST: INDICATION: Abdominal pain COMPARISON: 08/17/2017. CT scans of the abdomen and pelvis were performed without oral and intravenous contrast administration, with images from the lung bases through the pubic symphysis. The images are reviewed in the axial, sagittal and coronal planes. Dose reduction was employed with automated exposure control. The lung bases are clear. The cardiac silhouette is satisfactory. The liver is normal in size, shape and attenuation. There are no focal liver masses. The gallbladder is moderately distended. No intra or extrahepatic biliary ductal dilatation is appreciated. The pancreas is unremarkable. The spleen is unremarkable. Evaluation of the upper GI tract demonstrates postsurgical changes, consistent with gastric bypass. The duodenum is satisfactory in appearance. The small bowel is unremarkable. There is no mucosal thickening. No zone of transition is appreciated. There is no free fluid nor free air. Evaluation of the colon demonstrate no evidence of obstruction or mass lesion. There is no mucosal thickening of the colon. The appendix is not visualized. The adrenal glands are unremarkable as are the kidneys. There are no mass lesions nor evidence of obstruction. No calculi are seen. Scans through the pelvis demonstrate the rectosigmoid to be unremarkable. The bladder is unremarkable. The remainder of the pelvic contents are unremarkable. There is no mass or adenopathy. There is no free fluid. Postsurgical changes are noted involving the lower abdominal/pelvic subcutaneous soft tissues, consistent with the history of recent panniculectomy. Bilateral surgical drains are present. No focal fluid collections. The osseous structures are intact. The retroperitoneum is satisfactory in appearance. No mass or adenopathy. The aorta, inferior vena cava and iliac vessels are satisfactory. [facility] RADIOLOGY [facility] Corby De La Garza DO - 10/01/2023 [facility] Name[facility]HIE [facility]ICKS [facility] 1965 [id number] Exam Date/Time: 10/01/2023 09:53 Procedure: CT ABDOMEN PELVIS WO IV CONTRAST Ordering Provider: FINK DANIEL Reason For Exam: abdominal pain, concern for obstruction, recent panniculectomy CT SCAN OF THE ABDOMEN AND PELVIS WITHOUT CONTRAST: INDICATION: Abdominal pain COMPARISON: 08/17/2017. CT scans of the abdomen and pelvis were performed without oral and intravenous contrast administration, with images from the lung bases through the pubic symphysis. The images are reviewed in the axial, sagittal and coronal planes. Dose reduction was employed with automated exposure control. The lung bases are clear. The cardiac silhouette is satisfactory. The liver is normal in size, shape and attenuation. There are no focal liver masses. The gallbladder is moderately distended. No intra or extrahepatic biliary ductal dilatation is appreciated. The pancreas is unremarkable. The spleen is unremarkable. Evaluation of the upper GI tract demonstrates postsurgical changes, consistent with gastric bypass. The duodenum is satisfactory in appearance. The small bowel is unremarkable. There is no mucosal thickening. No zone of transition is appreciated. There is no free fluid nor free air. Evaluation of the colon demonstrate no evidence of obstruction or mass lesion. There is no mucosal thickening of the colon. The appendix is not visualized. The adrenal glands are unremarkable as are the kidneys. There are no mass lesions nor evidence of obstruction. No calculi are seen. Scans through the pelvis demonstrate the rectosigmoid to be unremarkable. The bladder is unremarkable. The remainder of the pelvic contents are unremarkable. There is no mass or adenopathy. There is no free fluid. Postsurgical changes are noted involving the lower abdominal/pelvic subcutaneous soft tissues, consistent with the history of recent panniculectomy. Bilateral surgical drains are present. No focal fluid collections. The osseous structures are intact. The retroperitoneum is satisfactory in appearance. No mass or adenopathy. The aorta, inferior vena cava and iliac vessels are satisfactory. IMPRESSION: Noncontrast CT of the abdomen and pelvis is negative for acute process. The bowel gas pattern is nonobstructive. Postsurgical changes are present, consistent with recent panniculectomy. No evidence of fluid collection. Report Dictated on Electronically Signed By: Corby De La Garza DO Electronically Signed Date/Time: 10/01/2023 10:15 AM EDT [facility] [employer] Radiology Study observation (narrative) [facility] [employer] CT Abdomen WO contrastOrdere d By: Corby De La Garza on 10-01-2023 [place] Work Phone: Comprehensive metabolic 1998 panelon 10-01-2023 Albumin [Mass/Vol] 3.5 g/dL 3.5 - 5.0 g/dL [facility] [employer] ALP [Catalytic activity/Vol] 76 U/L 38 - 126 U/L [facility] [employer] ALT [Catalytic activity/Vol] 16 U/L 0 - 49 U/L [facility] [employer] Anion gap [Moles/Vol] 7 mmol/L 3 - 13 mmol/L [facility] [employer] AST [Catalytic activity/Vol] 28 U/L 15 - 46 U/L [facility] Bilirubin [Mass/Vol] 0.7 mg/dL 0.2 - 1 .3 mg/dL [facility] Calcium [Mass/Vol] 8.6 mg/dL 8.4 - 10. 4 mg/dL [facility] Chloride [Moles/Vol] 106 mmol/L 98 - 10 7 mmol/L [facility] CO2 [Moles/Vol] 26 mmol/L 22 - 30 mmol/L [facility] Creatinine [Mass/Vol] 1.12 mg/dL 0.66 - 1.25 mg/dL [facility] GFR/1.73 sq M.predicted MDRD (S/P/Bld) [Vol rate/Area] 75.7 mL/min/{1.73_m2} - PINF [facility] Comment on above: Calculation based on the Chronic Kidney Disease Epidemiology Collaboration (CKD-EPI) equation refit without adjustment for race Glucose [Mass/Vol] 104 mg/dL High 70 - 100 mg/dL [facility] Interpretation and review of laboratory results Abnormal [facility] Potassium [Moles/Vol] 4.0 mmol/L 3.5 - 5.1 mmol/L [facility] Protein [Mass/Vol] 6.5 g/dL 6.3 - 8.2 g/dL [facility] Sodium [Moles/Vol] 139 mmol/L 135 - 145 mmol/L [facility] Urea nitrogen [Mass/Vol] 15 mg/dL 9 - 20 mg/dL [facility] Laboratory - Chemistry and C hemistry - challengeon 10-01-2023 Troponin I.cardiac [Mass/Vol] ng/mL [facility] - 0.034 ng/mL [facility] TSH Qn 2.069 m[IU]/L [facility] Troponin I.cardiac [Mass/Vol] ng/mL [facility] - 0.034 ng/mL [facility] Lipase [Catalytic activity/Vol] 55 U/L 23 - 300 U/L [facility] Troponin I.cardiac [Mass/Vol] ng/mL [facility] - 0.034 ng/mL [facility] Lipase [Catalytic activity/V ol]on 10-01-2023 Interpretation and review of laboratory results Normal [facility] No Panel Informationon 09-30 P [place] 25 degrees [facility] IN Interval 168 ms [facility] QRS [place] 34 degrees [facility] QRSD Interval 89 ms [facility] QT Interval 423 ms [facility] QTC Interval 433 ms [facility] T Wave [place] 62 degrees [facility] Sinus rhythm Electronically Signed On 10-01-2023 12:09:59 EDT by Louisa Marina CV Louisa Decker MD - 10/01/2023 IMPRESSION: Sinus rhythm Electronically Signed On 10-01-2023 12:09:59 EDT by Louisa Marina [facility] TSH Qnon 10-01-2023 Interpretation and review of laboratory results Normal [facility] Troponin I.cardiac [Mass/Vol ]on 10-01-2023 Interpretation and review of laboratory results Normal [facility] Patients with high levels of Biotin oral intake (ie >5 mg/day) may have falsely decreased Troponin levels. [facility] Interpretation and review of laboratory results Normal [facility] Patients with high levels of Biotin oral intake (ie >5 mg/day) may have falsely decreased Troponin levels. [facility] Interpretation and review of laboratory results Normal [facility] Patients with high levels of Biotin oral intake (ie >5 mg/day) may have falsely decreased Troponin levels. [facility] Urinalysis complete panel (U )Ordered By: Liseth Winkler on 10-01-2023 Amorphous Crystals, Urine Moderate Abnormal Ne gative /HPF [facility] Bacteria LM.HPF (Urine sed) [#/Area] Moderate Abnormal Negative /HPF [facility] Bilirubin Ql (U) Negative Negative mg/dL [facility] Clarity (U) Turbid Abnormal Clear [facility] Color (U) Yellow Lt. Yellow [facility] Epithelial cells.squamous LM.HPF (Urine sed) [#/Area] Negative [facility] Glucose Ql (U) Normal Normal (<70) mg/dL [facility] Hemoglobin Ql (U) Negative Negative mg/dL [facility] Hyaline casts Auto (Urine sed) [#/Area] 3-5 Abnormal Negative /LPF [facility] Interpretation and review of laboratory results Abnormal [facility] Ketones (U) [Mass/Vol] Negative Negat emelia mg/dL [facility] Leukocyte esterase Test stri p Ql (U) 75 Abnormal Negative Caprice/uL [facility] Mucus LM.HPF (Urine sed) [#/Area] Moderate Abnormal Negative /LPF [facility] Nitrite Ql (U) Negative Negative [facility] th pH (U) 7.5 [pH] 5.0 - 8.0 pH [facility] Protein (U) [Mass/Vol] 30 mg/dL Abnormal Negative [facility] RBC LM.HPF (Urine sed) [#/Area] 0-2 [facility] Specific gravity (U) [Rel density] 1.023 1.005 - 1.030 [facility] Urobilinogen (U) [Mass/Vol] 4 mg/dL Abnormal Normal (0-1) [facility] WBC LM.HPF (Urine sed) [#/Area] 6-10 Abnormal [facility] Yeast.budding LM.HPF (Urine sed) [#/Area] Few Abnormal Negative /HPF [facility] Vital signson 10-01-2023 Heart rate 63 /min bpm [facility] Basic metabolic 1998 panelon 09-25-2023 Anion gap [Moles/Vol] 10 mmol/L 3 - 13 mmol/L [facility] Calcium [Mass/Vol] 8.4 mg/dL 8.4 - 10. 4 mg/dL [facility] Chloride [Moles/Vol] 100 mmol/L 98 - 10 7 mmol/L [facility] CO2 [Moles/Vol] 27 mmol/L 22 - 30 mmol/L [facility] Creatinine [Mass/Vol] 1.16 mg/dL 0.66 - 1.25 mg/dL [facility] GFR/1.73 sq M.predicted MDRD (S/P/Bld) [Vol rate/Area] 72.6 mL/min/{1.73_m2} - PINF [facility] Comment on above: Calculation based on the Chronic Kidney Disease Epidemiology Collaboration (CKD-EPI) equation refit without adjustment for race Glucose [Mass/Vol] 102 mg/dL High 70 - 100 mg/dL [facility] Interpretation and review of laboratory results Abnormal [facility] Potassium [Moles/Vol] 3.6 mmol/L 3.5 - 5.1 mmol/L [facility] Sodium [Moles/Vol] 138 mmol/L 135 - 145 mmol/L [facility] Urea nitrogen [Mass/Vol] 15 mg/dL 9 - 20 mg/dL [facility] CBC panel Auto (Bld)on 09-24 Erythrocyte distribution width (RBC) [Ratio] 13.2 % 11.5 - 15.0 % [facility] Hematocrit (Bld) [Volume fraction] 38.1 % Low 40.0 - 52.0 % [facility] Hemoglobin (Bld) [Mass/Vol] 12.6 g/dL Low 13.0 - 18.0 g/dL [facility] Interpretation and review of laboratory results Abnormal [facility] IPF 1 [facility] MCH (RBC) [Entitic mass] 29.5 pg 26. 0 - 34.0 pg [facility] MCHC (RBC) [Mass/Vol] 33.1 % 30.5 - 36.0 % [facility] MCV (RBC) [Entitic vol] 89.2 fL 77.0 - 99.0 fL [facility] Platelet mean volume (Bld) [Entitic vol] 8.4 fL Low 9.0 - 12.7 fL [facility] Platelets (Bld) [#/Vol] 118 10*3/uL Low 140 - 440 10*3/uL [facility] RBC (Bld) [#/Vol] 4.27 10*6/uL Low 4.40 - 5.90 10*6/uL [facility] WBC (Bld) [#/Vol] 7.8 10*3/uL 3.6 - 10.7 10*3/uL [facility] Laboratory - Chemistry and C hemistry - challengeon 09-23-2023 Glucose [Mass/Vol] 149 mg/dL High 70 - 100 mg/dL [facility] Glucose [Mass/Vol] 115 mg/dL High 70 - 100 mg/dL [facility] Glucose [Mass/Vol] 93 mg/dL 70 - 100 mg/dL [facility] No Panel Informationon 09-22 Interpretation and review of laboratory results Abnormal [facility] [address] [address] CLIA ID: [id number] [facility] Interpretation and review of laboratory results Abnormal [facility] Performed by: [facility], [address] [address] CLIA ID: [id number] [facility] Interpretation and review of laboratory results Normal [facility]formed [facility]: [facility], [address] [address] CLIA ID: [id number] [facility] Radiology Study observation (narrative) [facility] Radiology Study observation (narrative) [facility] Radiology Study observation (narrative) [facility] Airwayon 09-16-2023 GREG Leavitt CRNA 09/16/2023 11:41 AM Airway Date/Time: 09/16/2023 11:23 AM Urgency: scheduled General Information and Staff Patient location during procedure: Procedural Anesthesiologist: Amna Anesthesiologist - Sbh/Msc, MD Resident/FURNACE OPERATOR AND TENDER: GREG Leavitt CRNA Performed: FURNACE OPERATOR AND TENDER Indications and Patient Condition Indications for airway management: anesthesia Sedation level: Asleep Preoxygenated: yes Patient position: C spine neutral Mask difficulty assessment: 0 - not attempted Final Airway Details Final airway type: supraglottic airway Successful airway: Igel Size 4 Number of attempts at approach: 1 Ventilation between attempts: spontaneous Number of other approaches attempted: 0 [facility] No Panel Informationon 09-15 There is no interpretation needed for this exam. IMAGING CBC W Auto Differential pane l (Bld)Ordered By: Harsha Voss on 08-21-2023 Basophils (Bld) [#/Vol] 0.1 10*3/uL 0.0 - 0.2 10*3/uL [facility] Basophils/100 WBC (Bld) 0.7 % 0.0 - 2.0 % [facility] Eosinophils (Bld) [#/Vol] 0.2 10*3/uL 0. 0 - 0.5 10*3/uL [facility] Eosinophils/100 WBC (Bld) 2.0 % 0. 0 - 6.0 % [facility] Erythrocyte distribution width (RBC) [Ratio] 12.9 % 11.5 - 15.0 % [facility] Hematocrit (Bld) [Volume fraction] 41.6 % 40.0 - 52.0 % [facility] Hemoglobin (Bld) [Mass/Vol] 14.0 g/dL 13.0 - 18.0 g/dL [facility] Immature granulocytes (Bld) [#/Vol] 0.0 10*3/uL NINF - 0.1 10*3/uL [facility] Immature granulocytes/100 WB C (Bld) 0.2 % 0.0 - 2.0 % [facility] Interpretation and review of laboratory results Abnormal [facility] IPF 1 [facility] Lymphocytes (Bld) [#/Vol] 1.9 10*3/uL 1. 0 - 4.3 10*3/uL [facility] Lymphocytes/100 WBC (Bld) 20.4 % 15 .0 - 45.0 % [facility] MCH (RBC) [Entitic mass] 29.7 pg 26. 0 - 34.0 pg [facility] MCHC (RBC) [Mass/Vol] 33.7 % 30.5 - 36.0 % [facility] MCV (RBC) [Entitic vol] 88.3 fL 77.0 - 99.0 fL [facility] Monocytes (Bld) [#/Vol] 1.0 10*3/uL High 0.0 - 0.9 10*3/uL [facility] Monocytes/100 WBC (Bld) 11.0 % 5.0 - 13.0 % [facility] Neutrophils (Bld) [#/Vol] 6.0 10*3/uL 1. 8 - 7.5 10*3/uL [facility] Neutrophils/100 WBC (Bld) 65.7 % 38 .0 - 82.0 % [facility] Nucleated RBC/100 WBC (Bld) [Ratio] 0.0 % [facility] Platelet mean volume (Bld) [Entitic vol] 8.6 fL Low 9.0 - 12.7 fL [facility] Platelets (Bld) [#/Vol] 163 10*3/uL 140 - 440 10*3/uL [facility] RBC (Bld) [#/Vol] 4.71 10*6/uL 4.40 - 5.90 10*6/uL [facility] WBC (Bld) [#/Vol] 9.2 10*3/uL 3.6 - 10.7 10*3/uL [facility] Comprehensive metabolic 1998 panelon 08-21-2023 Albumin [Mass/Vol] 4.1 g/dL 3.5 - 5.0 g/dL [facility] ALP [Catalytic activity/Vol] 80 U/L 38 - 126 U/L [facility] ALT [Catalytic activity/Vol] 17 U/L 0 - 49 U/L [facility] Anion gap [Moles/Vol] 11 mmol/L 3 - 13 mmol/L [facility] AST [Catalytic activity/Vol] 26 U/L 15 - 46 U/L [facility] Bilirubin [Mass/Vol] 0.7 mg/dL 0.2 - 1 .3 mg/dL [facility] Calcium [Mass/Vol] 9.0 mg/dL 8.4 - 10. 4 mg/dL [facility] Chloride [Moles/Vol] 103 mmol/L 98 - 10 7 mmol/L [facility] CO2 [Moles/Vol] 24 mmol/L 22 - 30 mmol/L [facility] Creatinine [Mass/Vol] 1.83 mg/dL High 0.66 - 1.25 mg/dL [facility] GFR/1.73 sq M.predicted MDRD (S/P/Bld) [Vol rate/Area] 42.0 mL/min/{1.73_m2} Low - PINF [facility] Comment on above: Calculation based on the Chronic Kidney Disease Epidemiology Collaboration (CKD-EPI) equation refit without adjustment for race Glucose [Mass/Vol] 119 mg/dL High 70 - 100 mg/dL [facility] Interpretation and review of laboratory results Abnormal [facility] Potassium [Moles/Vol] 4.1 mmol/L 3.5 - 5.1 mmol/L [facility] Protein [Mass/Vol] 7.0 g/dL 6.3 - 8.2 g/dL [facility] Sodium [Moles/Vol] 138 mmol/L 135 - 145 mmol/L [facility] Urea nitrogen [Mass/Vol] 23 mg/dL High 9 - 20 mg/dL [facility] Laboratory - Chemistry and C hemistry - challengeon 08-21-2023 Troponin I.cardiac [Mass/Vol] ng/mL NINF - 0.034 ng/mL [facility] Lipase [Catalytic activity/Vol] 74 U/L 23 - 300 U/L [facility] Lipase [Catalytic activity/V ol]on 08-21-2023 Interpretation and review of laboratory results Normal [facility] No Panel Informationon 08-20 [facility] P [place] 26 degrees [facility] IN Interval 165 ms [facility] QRS [place] 23 degrees [facility] QRSD Interval 87 ms [facility] QT Interval 351 ms [facility] QTC Interval 442 ms [facility] T Wave [place] 40 degrees [facility] Sinus rhythm Electronically Signed On 08-21-2023 21:51:55 EDT by Eduard Guan CV Eduard Covarrubias MD - 08/21/2023 IMPRESSION: Sinus rhythm Electronically Signed On 08-21-2023 21:51:55 EDT by Eduard Guan [facility] Troponin I.cardiac [Mass/Vol ]on 08-21-2023 Interpretation and review of laboratory results Normal [facility] Patients with high levels of Biotin oral intake (ie >5 mg/day) may have falsely decreased Troponin levels. [facility] Urinalysis complete panel (U )on 08-21-2023 Bacteria LM.HPF (Urine sed) [#/Area] Few Abnormal Negative /HPF [facility] Bilirubin Ql (U) Negative Negative mg/dL [facility] Clarity (U) Turbid Abnormal Clear [facility] Color (U) Yellow Lt. Yellow [facility] Epithelial cells.squamous LM.HPF (Urine sed) [#/Area] 0-2 [facility] Glucose Ql (U) Normal Normal (<70) mg/dL [facility] Hemoglobin Ql (U) >1.0 Abnormal Negative mg/dL [facility] Hyaline casts Auto (Urine sed) [#/Area] 11-25 Abnormal Negative /LPF [facility] Interpretation and review of laboratory results Abnormal [facility] Ketones (U) [Mass/Vol] Negative Negat emelia mg/dL [facility] Leukocyte esterase Test stri p Ql (U) 75 Abnormal Negative Caprice/uL [facility] Mucus LM.HPF (Urine sed) [#/Area] Few Negative /LPF [facility] Nitrite Ql (U) Negative Negative [facility] th pH (U) 5.0 [pH] 5.0 - 8.0 pH [facility] Protein (U) [Mass/Vol] 50 mg/dL Abnormal Negative [facility] RBC LM.HPF (Urine sed) [#/Area] /[HPF] Abnormal [facility] Specific gravity (U) [Rel density] 1.026 1.005 - 1.030 [facility] Urobilinogen (U) [Mass/Vol] Normal Normal (0-1) mg/dL [facility] WBC LM.HPF (Urine sed) [#/Area] 26-50 Abnormal [facility] Vital signson 08-21-2023 Heart rate 95 /min bpm [facility] CBC W Auto Differential pane l (Bld)on 08-20-2023 Basophils (Bld) [#/Vol] 0.1 10*3/uL 0.0 - 0.2 10*3/uL [facility] Basophils/100 WBC (Bld) 0.8 % 0.0 - 2.0 % [facility] Eosinophils (Bld) [#/Vol] 0.2 10*3/uL 0. 0 - 0.5 10*3/uL [facility] Eosinophils/100 WBC (Bld) 2.4 % 0. 0 - 6.0 % [facility] Erythrocyte distribution width (RBC) [Ratio] 13.0 % 11.5 - 15.0 % [facility] Hematocrit (Bld) [Volume fraction] 39.9 % Low 40.0 - 52.0 % [facility] Hemoglobin (Bld) [Mass/Vol] 13.3 g/dL 13.0 - 18.0 g/dL [facility] [employer] Immature granulocytes (Bld) [#/Vol] 0.0 10*3/uL NINF - 0.1 10*3/uL [facility] [employer] Immature granulocytes/100 WB C (Bld) 0.1 % 0.0 - 2.0 % [facility] Interpretation and review of laboratory results Abnormal [facility] IPF 1 [facility] [employer] Lymphocytes (Bld) [#/Vol] 2.0 10*3/uL 1. 0 - 4.3 10*3/uL [facility] Lymphocytes/100 WBC (Bld) 26.0 % 15 .0 - 45.0 % [facility] MCH (RBC) [Entitic mass] 29.6 pg 26. 0 - 34.0 pg [facility] MCHC (RBC) [Mass/Vol] 33.3 % 30.5 - 36.0 % [facility] MCV (RBC) [Entitic vol] 88.9 fL 77.0 - 99.0 fL [facility] Monocytes (Bld) [#/Vol] 0.6 10*3/uL 0.0 - 0.9 10*3/uL [facility] Monocytes/100 WBC (Bld) 8.3 % 5.0 - 13.0 % [facility] Neutrophils (Bld) [#/Vol] 4.7 10*3/uL 1. 8 - 7.5 10*3/uL [facility] Neutrophils/100 WBC (Bld) 62.4 % 38 .0 - 82.0 % [facility] Nucleated RBC/100 WBC (Bld) [Ratio] 0.0 % [facility] Platelet mean volume (Bld) [Entitic vol] 8.5 fL Low 9.0 - 12.7 fL [facility] Platelets (Bld) [#/Vol] 121 10*3/uL Low 140 - 440 10*3/uL [facility] RBC (Bld) [#/Vol] 4.49 10*6/uL 4.40 - 5.90 10*6/uL [facility] WBC (Bld) [#/Vol] 7.6 10*3/uL 3.6 - 10.7 10*3/uL [facility] Comprehensive metabolic 1998 panelon 08-20-2023 Albumin [Mass/Vol] 3.8 g/dL 3.5 - 5.0 g/dL [facility] ALP [Catalytic activity/Vol] 61 U/L 38 - 126 U/L [facility] ALT [Catalytic activity/Vol] 14 U/L 0 - 49 U/L [facility] Anion gap [Moles/Vol] 7 mmol/L 3 - 13 mmol/L [facility] AST [Catalytic activity/Vol] 25 U/L 15 - 46 U/L [facility] Bilirubin [Mass/Vol] 0.9 mg/dL 0.2 - 1 .3 mg/dL [facility] Calcium [Mass/Vol] 8.4 mg/dL 8.4 - 10. 4 mg/dL [facility] Chloride [Moles/Vol] 103 mmol/L 98 - 10 7 mmol/L [facility] CO2 [Moles/Vol] 26 mmol/L 22 - 30 mmol/L [facility] Creatinine [Mass/Vol] 1.01 mg/dL 0.66 - 1.25 mg/dL [facility] GFR/1.73 sq M.predicted MDRD (S/P/Bld) [Vol rate/Area] 85.7 mL/min/{1.73_m2} - PINF [facility] Comment on above: Calculation based on the Chronic Kidney Disease Epidemiology Collaboration (CKD-EPI) equation refit without adjustment for race Glucose [Mass/Vol] 95 mg/dL 70 - 100 mg/dL [facility] Interpretation and review of laboratory results Normal [facility] Potassium [Moles/Vol] 4.1 mmol/L 3.5 - 5.1 mmol/L [facility] Protein [Mass/Vol] 6.8 g/dL 6.3 - 8.2 g/dL [facility] Sodium [Moles/Vol] 136 mmol/L 135 - 145 mmol/L [facility] Urea nitrogen [Mass/Vol] 14 mg/dL 9 - 20 mg/dL [facility] Bacteria identified Cx Nom ( U)Ordered By: Teresa Romero on 08-19-2023 Interpretation and review of laboratory results Normal [facility] Basic metabolic 1998 panelon 08-19-2023 Anion gap [Moles/Vol] 9 mmol/L 3 - 13 mmol/L [facility] Calcium [Mass/Vol] 8.6 mg/dL 8.4 - 10. 4 mg/dL [facility] Chloride [Moles/Vol] 104 mmol/L 98 - 10 7 mmol/L [facility] CO2 [Moles/Vol] 27 mmol/L 22 - 30 mmol/L [facility] Creatinine [Mass/Vol] 1.21 mg/dL 0.66 - 1.25 mg/dL [facility] GFR/1.73 sq M.predicted MDRD (S/P/Bld) [Vol rate/Area] 69.0 mL/min/{1.73_m2} - PINF [facility] Comment on above: Calculation based on the Chronic Kidney Disease Epidemiology Collaboration (CKD-EPI) equation refit without adjustment for race Glucose [Mass/Vol] 112 mg/dL High 70 - 100 mg/dL [facility] Interpretation and review of laboratory results Abnormal [facility] Potassium [Moles/Vol] 3.8 mmol/L 3.5 - 5.1 mmol/L [facility] Sodium [Moles/Vol] 140 mmol/L 135 - 145 mmol/L [facility] Urea nitrogen [Mass/Vol] 17 mg/dL 9 - 20 mg/dL [facility] CBC panel Auto (Bld)Ordered By: Harsha Voss on 08-19-2023 Erythrocyte distribution width (RBC) [Ratio] 13.2 % 11.5 - 15.0 % [facility] Hematocrit (Bld) [Volume fraction] 39.5 % Low 40.0 - 52.0 % [facility] Hemoglobin (Bld) [Mass/Vol] 13.2 g/dL 13.0 - 18.0 g/dL [facility] Interpretation and review of laboratory results Abnormal [facility] IPF 1 [facility] MCH (RBC) [Entitic mass] 29.6 pg 26. 0 - 34.0 pg [facility] MCHC (RBC) [Mass/Vol] 33.4 % 30.5 - 36.0 % [facility] MCV (RBC) [Entitic vol] 88.6 fL 77.0 - 99.0 fL [facility] Platelet mean volume (Bld) [Entitic vol] 8.5 fL Low 9.0 - 12.7 fL [facility] Platelets (Bld) [#/Vol] 98 10*3/uL Low 140 - 440 10*3/uL [facility] RBC (Bld) [#/Vol] 4.46 10*6/uL 4.40 - 5.90 10*6/uL [facility] WBC (Bld) [#/Vol] 6.6 10*3/uL 3.6 - 10.7 10*3/uL [facility] Laboratory - Microbiology an d Antimicrobial susceptibilityOrdered By: Teresa Romero on 08-19-2023 Bacteria identified Cx Nom (U) No growth (<1,000 CFU/mL) [facility] CBC W Auto Differential pane l (Bld)on 08-18-2023 Basophils (Bld) [#/Vol] 0.1 10*3/uL 0.0 - 0.2 10*3/uL [facility] Basophils/100 WBC (Bld) 0.4 % 0.0 - 2.0 % [facility] Eosinophils (Bld) [#/Vol] 0.1 10*3/uL 0. 0 - 0.5 10*3/uL [facility] Eosinophils/100 WBC (Bld) 1.0 % 0. 0 - 6.0 % [facility] Erythrocyte distribution width (RBC) [Ratio] 13.1 % 11.5 - 15.0 % [facility] Hematocrit (Bld) [Volume fraction] 43.0 % 40.0 - 52.0 % [facility] Hemoglobin (Bld) [Mass/Vol] 14.3 g/dL 13.0 - 18.0 g/dL [facility] Immature granulocytes (Bld) [#/Vol] 0.0 10*3/uL NINF - 0.1 10*3/uL [facility] Immature granulocytes/100 WB C (Bld) 0.3 % 0.0 - 2.0 % [facility] [employer] Interpretation and review of laboratory results Abnormal [facility] [employer] Lymphocytes (Bld) [#/Vol] 1.6 10*3/uL 1. 0 - 4.3 10*3/uL [facility] Lymphocytes/100 WBC (Bld) 12.7 % Low 15 .0 - 45.0 % [facility] [employer] MCH (RBC) [Entitic mass] 29.3 pg 26. 0 - 34.0 pg [facility] [employer] MCHC (RBC) [Mass/Vol] 33.3 % 30.5 - 36.0 % [facility] [employer] MCV (RBC) [Entitic vol] 88.1 fL 77.0 - 99.0 fL [facility] [employer] Monocytes (Bld) [#/Vol] 0.9 10*3/uL 0.0 - 0.9 10*3/uL [facility] Monocytes/100 WBC (Bld) 6.8 % 5.0 - 13.0 % [facility] [employer] Neutrophils (Bld) [#/Vol] 9.9 10*3/uL High 1. 8 - 7.5 10*3/uL [facility] Neutrophils/100 WBC (Bld) 78.8 % 38 .0 - 82.0 % [facility] [employer] Nucleated RBC/100 WBC (Bld) [Ratio] 0.0 % [facility] [employer] Platelet mean volume (Bld) [Entitic vol] 8.6 fL Low 9.0 - 12.7 fL [facility] [employer] Platelets (Bld) [#/Vol] 110 10*3/uL Low 140 - 440 10*3/uL [facility] RBC (Bld) [#/Vol] 4.88 10*6/uL 4.40 - 5.90 10*6/uL [facility] WBC (Bld) [#/Vol] 12.5 10*3/uL High 3.6 - 10.7 10*3/uL [facility] [employer] [facility] CT Abdomen WO contraston No acute process. Chronic findings as above. Report Dictated on Electronically Signed By: Rohan Michael MD Electronically Signed Date/Time: 08/18/2023 4:17 AM EDT [facility] Patient Name: SOPHIE HICKS : 1965 Exam Date/Time: 08/18/2023 04:02 Procedure: CT ABDOMEN PELVIS WO IV CONTRAST Ordering Provider: [facility] Reason For Exam: Abdominal pain, acute, nonlocalized EXAMINATION: CT of the abdomen and pelvis without contrast. EXAM DATE & TIME: 08/18/2023 4:02 AM EDT INDICATION: Abdominal pain, acute, nonlocalized ADDITIONAL INFORMATION: 57-year-old male with acute abdominal pain presents for evaluation COMPARISON: CT abdomen pelvis dated 04/10/2023 LIMITATIONS: Evaluation of the vasculature as well as the solid and hollow viscera is limited due to the lack of intravenous and oral contrast. TECHNIQUE: Contiguous multiplanar 3 mm images were obtained from the levels of the lung bases through the pelvis without contrast. Images were reformatted in coronal and sagittal projections using the raw CT data and were interpreted in conjunction with the axial images to render the findings listed below. Dose reduction was employed with automated exposure control. FINDINGS: Included images of the lower thorax: No focal lung consolidation or pleural effusion. There is bibasilar scarring/atelectasi s. Hepatobiliary: Unremarkable liver without biliary dilation evident. Gallbladder appears normal. Spleen: Unremarkable. Pancreas: There is fatty atrophy of the pancreas. Adrenal glands: Unremarkable. Kidneys, ureters and bladder: No hydronephrosis or nephrolithiasis. A Conte catheter is present within the urinary bladder. Abdominal and pelvic vasculature: Unremarkable. Gastrointestinal: The patient is status post sleeve gastrectomy. No evidence of bowel obstruction. No pericecal inflammation to suggest acute appendicitis. Peritoneum, retroperitoneum and mesentery: No free fluid or free air. Lymph nodes: No abdominal or pelvic lymphadenopathy is evident. 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 Visualized musculoskeletal structures: No acute fracture or destructive osseous lesion is identified. [facility] [employer] Rohan Michael MD - 08/18/2023 Patient Name: SOPHIE HICKS : 1965 Exam Date/Time: 08/18/2023 04:02 Procedure: CT ABDOMEN PELVIS WO IV CONTRAST Ordering Provider: CHANCE RALEIGH Reason For Exam: Abdominal pain, acute, nonlocalized EXAMINATION: CT of the abdomen and pelvis without contrast. EXAM DATE & TIME: 08/18/2023 4:02 AM EDT INDICATION: Abdominal pain, acute, nonlocalized ADDITIONAL INFORMATION: 57-year-old male with acute abdominal pain presents for evaluation COMPARISON: CT abdomen pelvis dated 04/10/2023 LIMITATIONS: Evaluation of the vasculature as well as the solid and hollow viscera is limited due to the lack of intravenous and oral contrast. TECHNIQUE: Contiguous multiplanar 3 mm images were obtained from the levels of the lung bases through the pelvis without contrast. Images were reformatted in coronal and sagittal projections using the raw CT data and were interpreted in conjunction with the axial images to render the findings listed below. Dose reduction was employed with automated exposure control. FINDINGS: Included images of the lower thorax: No focal lung consolidation or pleural effusion. There is bibasilar scarring/atelectasi s. Hepatobiliary: Unremarkable liver without biliary dilation evident. Gallbladder appears normal. Spleen: Unremarkable. Pancreas: There is fatty atrophy of the pancreas. Adrenal glands: Unremarkable. Kidneys, ureters and bladder: No hydronephrosis or nephrolithiasis. A Conte catheter is present within the urinary bladder. Abdominal and pelvic vasculature: Unremarkable. Gastrointestinal: The patient is status post sleeve gastrectomy. No evidence of bowel obstruction. No pericecal inflammation to suggest acute appendicitis. Peritoneum, retroperitoneum and mesentery: No free fluid or free air. Lymph nodes: No abdominal or pelvic lymphadenopathy is evident. 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 Visualized musculoskeletal structures: No acute fracture or destructive osseous lesion is identified. IMPRESSION: No acute process. Chronic findings as above. Report Dictated on Electronically Signed By: Rohan Michael MD Electronically Signed Date/Time: 08/18/2023 4:17 AM EDT [facility] Study observation (narrative) [facility] CT Abdomen WO contrastOrdere d By: Rohan Michael on 08-18-2023 [employer] Work Phone: Comprehensive metabolic 1998 panelon 08-18-2023 Albumin [Mass/Vol] 4.4 g/dL 3.5 - 5.0 g/dL [facility] ALP [Catalytic activity/Vol] 71 U/L 38 - 126 U/L [facility] ALT [Catalytic activity/Vol] 17 U/L 0 - 49 U/L [facility] Anion gap [Moles/Vol] 12 mmol/L 3 - 13 mmol/L [facility] AST [Catalytic activity/Vol] 28 U/L 15 - 46 U/L [facility] Bilirubin [Mass/Vol] 0.9 mg/dL 0.2 - 1 .3 mg/dL [facility] Calcium [Mass/Vol] 8.8 mg/dL 8.4 - 10. 4 mg/dL [facility] Chloride [Moles/Vol] 106 mmol/L 98 - 10 7 mmol/L [facility] CO2 [Moles/Vol] 23 mmol/L 22 - 30 mmol/L [facility] Creatinine [Mass/Vol] 1.57 mg/dL High 0.66 - 1.25 mg/dL [facility] GFR/1.73 sq M.predicted MDRD (S/P/Bld) [Vol rate/Area] 50.5 mL/min/{1.73_m2} Low - PINF [facility] Comment on above: Calculation based on the Chronic Kidney Disease Epidemiology Collaboration (CKD-EPI) equation refit without adjustment for race Glucose [Mass/Vol] 132 mg/dL High 70 - 100 mg/dL [facility] Interpretation and review of laboratory results Abnormal [facility] Potassium [Moles/Vol] 4.1 mmol/L 3.5 - 5.1 mmol/L [facility] Protein [Mass/Vol] 7.4 g/dL 6.3 - 8.2 g/dL [facility] Sodium [Moles/Vol] 141 mmol/L 135 - 145 mmol/L [facility] Urea nitrogen [Mass/Vol] 20 mg/dL 9 - 20 mg/dL [facility] No Panel InformationOrdered By: Umberto Johnson on 08-18-2023 Case Report Non-Gynecologic Cytology Case: [id number] Authorizing Provider: Mariana Ball APRN - Collected: 08/18/2023 [employer] Ordering Location: [facility] ED Received: 08/18/2023 1123 Pathologist: Umberto Johnson MD Specimen: Urine, Clean Catch [facility] [employer] Work Phone: Case Screening Location [facility], [address] [address]; CLIA: [id number]; Joint Commission: HCO [id number]; CAP: [id number] [facility] [employer] Work Phone: Disclaimer [id number] qMAMhXOIpl7zvYMLshG FuZzEwMzNcZnRuYmpcd KEbXJJpGtSqn8reb819 mWLfr7jeZCAyXtG9uRN uDZMqK81uVLQTZ518WH VrYGbyx5vnz3ZxBWTej IFxp8S0KJVHMZahJDKU DRw8nAysW03tr6F3Doq jD1hnXXAhPCEbP6ZsXB 4tVIIkQya9JVK5GIS6L CTfXXQjF3MiKH7mDLJt oTFbEMj7x4xmgPjcAYM xWXZ1v7hjGUalsgRvHE 8ban5vjHg7v3feeqPhN YMwASRuaSNNGEIlT7Lb jPqtEc7stLe8fPsnHpw hBBG1Ned9TU4imj55tq o3uSdmAWKnoaluHeT2Y KygKVPiqojeFAq7CPhl BQVbvGB6JOCsgHYsK0X pJIGeLF2ajbr8OSJ9WG plXMZyVmW1MZWftOWnX AQwjQizZXdzi795WRE0 EsYwVY3yS2Byg0W7hP4 maXRcZGVmdGFiNzIwXG Zenq5olMAaBLgkk3YgB TK6qfG8nXMvyWMnSOYe ZA10Yocli2CuTsxcNKP 7XMEbtcHst7Zpm7nwRm SmyqQtN9nlZ2JaFCSmE AJjXTTnXoHqesEvb4Zu y3RnuXJczMz2h1ebUXV zGUBohFdsi8ijHDW7UZ MeG1Y2kJTao8lhWTzxZ RNdjXG3qyE7GQSirXQf Q1JwhK5nZBGuSA6bxpl 8k1krXFP3OPvgZYSlJg H4koV2TGLzhCGcFOHte LxpULofe778BWM8IxTt UWCyf2CzJ6GhyBjxV34 lrEuaU03sCZOqwWlegB 3iwBdjuX9qVgZgBxOeK FxxbFxwbGFpblxmMVxm lsZ8NXxnkfeuPKCdVTn vY6emVdJdCIEuhBnvDD wae0XoYXClMLWuLQHdD PvvF7hvgK0owuzkKSmz VIMumIihl1bhUgVmhKF 3ER1ojqKrDDMivOnfbm Y7ggDseLufnG9qqI6ua HtqzB7pcYRppZM8shpf IGluIHNpdHUgaHlicml lpYugeOgzvxsjfL2uVH J8mGVjVVR6tUQhJKUgD VPdDZEeyG00bp1rnRYp oaUjJ7UhV8UsuGZryTu lOtzcnIJodMLxKi9ygP XzLL6cYZOrwDTjX1WxI R7iFZCdpyzvGCHoBRoe BRVdMXZgSmUbgkLvs9F zuH8sLCSeYDBvIG24ce ZmeqB7nSJqENDpumAhe GVzdHMgaXMgcmVndWxh dGVkIGFzIGFuIGFuYWx 5dGZcj4QcR1tljORmra WbP3UmcBFbGODZEH0dM Ybky4UnxGBfgJBeg1Pk JXXqOMVkuD2rEJQzFH6 kIHRoZWlyIHBlcmZvcm 2ihvHgNBHgSZUvI9Fvh phptMucswNlRGXzzu1h yzCuWFX5KNPwVJOvzFi deKOvvBNtQBXnbpW5z8 QsIIAql4JkX5AunIPvG IMdgYVlXWQ1e7RflU7z AWxfzEAeMCWzAE4maRT iZWVuIGNsZWFyZWQgYn soxXkpRLBAVMEit9IpP B4kXXIteSgmEUJsuK0g k7LcSQMrr23hOCKTKJm uIFRoZSBGREEgaGFzIG RldGVybWluZWQgdGhhd ZVjhEZsPBSkXLUcIZ3u DBEsjrKybNItj4GaxQG lwpOzv0RzivMvUDXgGK B9MgLzeOCiIJSjvqBRr LnoeM9rvY8fb0RdtF1b DRculyZtxVOgMd0luEO jJT1fBOXptkXsIbehFA HwKtGbJLEcVCVio3S2G R9oRJRgyn1eqruasAPm rH0crRQpjtKuGQ6qLG1 hV3Y6nHQiPJUruiUap6 jmFNn0yQYdJVNmmEAna LHfUtieGUR7HXWfCWP0 biBpbiBwYXJhbGxlbCB 3aXRoIHRoZSBwYXRpZW 15Z9Xzx7XvL4xeQS65R LViSTDoLIIehpFah8vm DARfg5jrOCCikJNxW1I lZCBzdGFpbmluZyBwYX Z6JWFuSKE4yLTfHBGtM 2DsgKNokASchO21VQ6k vOP8FV9hFXY4AJxlyF0 fTnJWgR80ft0hdGO8y9 JkVL7pQ7TqTHCrw6U9b sSxWQHgPQ0afIGvOSGe IHZhbGlkYXRlZCBvbiB tBXHuiNLzTiwgHBO8qO IhkASpEuHNFWJ3aSViP DHqs2RdSXKyIOLfpbOx feWjATEzUKU7fNLhWTT pqJJjk87wL4q3TR4pdO zkJITfuHKiGKWsj0Itn FCsoLd7uVPcLtHdSCaa ZVSvQGssfWu0gGB3ER4 hXVZhA4BoK9swnXMfTK JxXTYlrTIncj9fcQCkq Q== [facility] Work Phone: Gross Description z8tqpRAyTGLlfACoMNA wNVxhbnNpXHNwbHRwZ3 TljxhbKAknYV4lRC6nz GxhdHRveWVuXGRlZmYw i2bhy375xEAuz8bpMQQ VFVtvLMXGAJh3t2skEJ KFgkiwvJj7hApeB43je 7X8WtolR3edKEC4NKat ccTlpeu6ZBZpsBW3IOa ccmVkMFxncmVlbjBcYm c2NMH6fYulOZTxoiktE wR0MUgpQUNouxenTIn7 OAakMBSmdSG3ACYbvSP vH7GoTHDsOM4mefb8CA P3YFehLPJcXwV6FIZfu EThAUChhSlnPNaza043 WXH9PpUpb9tyPJPyiXU sHQB1GWmkvTAjTBReTT AgXFxuaCBcXHQgMSBcX JCgDKctljZ6t9gqCOWj uRZzIAC1OSfzyNHrHFQ wMDIgXFxkYiBPVlIgIi D5CAo5JYF3IbR0BVa2L AZYAhQjSwBrDUZ9Xmlw XUloAKv9WTh1ZRcCWvO sOtBpNvX7GMZpQVG7Ik QgXFxuaCBcXHQgMiBcX LOuTUYlXKbcjOThJG0b fVxwYXJkXHNiMzBcZXB oA8lnHvMeMGJmKSfoRI QzZAAvCxJtC5QrMNDcY GFLpzpdKGzmL9emXF6z O8W9H6n6ASYqKQJpBBz tBLBqgWRtMFZ0NDQtJY BccHJvdGVjdHtcZmllb AI7ZAirTburqX3cbTNN WVBFUkxJTksgbmFtZT1 ODZUEMgILCA85VZJ7LG AxpXT4EY18ZTRyWBEnb IWiFRoyH078O0zxoKD0 j7usdKCrBMpeJtyvtUI yicG0AXeJUQHRQKzRCw VcUC4dCLfCG0CPRbL6B YG2QTQlgCP7EB90SQWl ZALlqOEwRYhmA000PYT sYWluXGYxXGZzMjAgIF iroa95AIY6c8rzaLQfW FlqPfvjuPOjvxE9IJoO VXPFVCwHYaJgXB3uUKj RC1BDCFkVCsnrYVtwLp U7YrprbLfiVpfbrvDrp PWcNvFcsZ5hrZPadfoh DgqobBT5YMwvFhptdL3 zdCBIWVBFUkxJTksgbm SuNO6LBAIWFF1IiUMoC PCiPLytiWJ4s6vnwYFw b9z9UXoxJVA7yVpdnJJ pblxmMVxmczIwICBmbH VpZCByZWNlaXZlZCBcc HJvdGVjdHtcZmllbGR7 EMysDvcxrW5ylPNRJCY SLxnXSyjdvcYwIE6XDE HKApLMFY17PMS9QQE0k QA2Q115OBGuCOXvyMGf HUdzZ624LhTkt3q3SUV fIDmqq2tiQHVaBYkvy0 RiPQfMGHRYEJ9CHW4zg EL0ECgNEGDPAZwgXIkk YhQ5N8wpdTliWngbpnS qhVMsYuRnoK9psTwdpC 5cZjFcZnMyMCAuIFxwY QRxOackJjOuHDP5IIGz YWxzIFByZXBhcmVkOlx iMFxjZjAgICBUaGluUH JlcCBccGFyXHBhclxzY LYcDEGueMHZn4SeJOac ONiamgDth8iprLbqa4E usTEeFS19VNNulXPrQA M5OA3xoDulWPAovxHEC QVPOPzKM8QwUDSLSHFF FAZgRtXOZN3jOZV2EHO msMC1Zh0nSVuuTsI9Dj 0wXzExOTAyNHwzPTAgU 80XFlAILTRGF83IFTWK JQQWF4KSZYTXBOfRN9N BPQ3JJVLXJOBXAW0ZDP oCHkSHNBiOU2XBHY8DI VEZDKAIZX7URfUcXAvX L6NEC9oVIVIsQXHREFO SDFEzEcFNCI6bOEo6Yv 5HVInYJyECR51CKZGBP J8AYGmwHRkwEfOciNDg j94THh5DRG5vG06TJ1H 5MPC6FXL9OH9iJYsTwK XngI3lqBAUzXvxdZy1V ToxMTkwMjRcfSBQTEFD CCiIAXEJDw5SLCKKWUN JYH6LQxEvU6QCIH8WGx 0TIKZTERUMDX5CWShCX tZeZ3YDDP1FXi2WSDWB ATNQXI7EXkPlHYDZY8F BVaAHH5bpCDYKQDQBMB IiCqHKIF5vFRLVXO6OC QDOWGQSM25DHEVPKUKY H5IARN3= [employer] Phone: Pathologist Interpretation Location [facility], [address] [place] [id number]; CLIA: [id number]; Joint Commission: HCO [id number]; CAP: [phone] [facility] Phone: Pathology report final diagnosis Narrative m7elaGTnBZVnpXIbFXZ wNVxhbnNpXHNwbHRwZ3 FktlrsJEiaBG1uQH7qn GxhdHRveWVuXGRlZmYw x3jlu809aUPun8ieFXK FGGaaYMMNZSs4gLwlZ2 6kw6T9UwtrH0orCMV7I QzcsuHhopc3OFRhxCV3 DIn6VHRxiREwnzDdCdA dOEWthEEyfSP8RTHuEX 1hcmdsMTgwMFxtYXJnc vS2MORdtDGhI9QpQEJl YI1yeocyUAE2OAgeSCH kKJY7FdVfHCMng8Osxl k0MySucJOwDRmzvHDyg lxmczIwXGNmMSBBICAt GHQpqK3yEVJSzAJyaoC WJUAyxYGpPNZaxS0eQB B5pH5ms2k0QseaTjFhR OGquWCfJB7KP1BOSRND IEZPUiBISUdIIEdSQUR TBRSCK7OUAAjXECubM4 MVR5kFG80GYqWbsPXcB DGpOXK7bHIkPIVht9Aj FLdpXMbjT4KckGVcmFT wk4QcyB2mkCCaJIWulm WqBEW3oKRybR4mxGTih JD6f0W9SWIzbFtyQHCr UNIxAQDqIcbms7WyO3V hzXNwwACxr4LtfJ7qOE [employer]= [employer] Work Phone: [facility] Work Phone: No Panel Informationon 08-17 GREG Jackson NP 08/18/2023 10:13 AM Bladder Catheterization Date/Time: 08/18/2023 10:13 AM Performed by: GREG Jackson NP Authorized by: GREG Jackson NP Procedure Details Procedure: bladder irrigation Catheter size: 16 Fr Catheter provided by: health care organization Urine characteristics: clear and yellow Volume of irrigation used (mL): 400 Clots present: no Appearance of urine after irrigation: clear Post-Procedure Details Outcome: patient tolerated procedure well with no complications [facility] [employer] No Panel InformationOrdered By: Wiliam Sims on 08-18-2023 [facility] [employer] Work Phone: Basic metabolic 1998 panelon 08-17-2023 Anion gap [Moles/Vol] 9 mmol/L 3 - 13 mmol/L [facility] [employer] Calcium [Mass/Vol] 8.7 mg/dL 8.4 - 10. 4 mg/dL [facility] [employer] Chloride [Moles/Vol] 105 mmol/L 98 - 10 7 mmol/L [facility] [employer] CO2 [Moles/Vol] 26 mmol/L 22 - 30 mmol/L [facility] [employer] Creatinine [Mass/Vol] 1.78 mg/dL High 0.66 - 1.25 mg/dL [facility] [employer] GFR/1.73 sq M.predicted MDRD (S/P/Bld) [Vol rate/Area] 43.4 mL/min/{1.73_m2} Low - PINF [facility] Comment on above: Calculation based on the Chronic Kidney Disease Epidemiology Collaboration (CKD-EPI) equation refit without adjustment for race Glucose [Mass/Vol] 103 mg/dL High 70 - 100 mg/dL [facility] Interpretation and review of laboratory results Abnormal [facility] [employer] Potassium [Moles/Vol] 4.2 mmol/L 3.5 - 5.1 mmol/L [facility] [employer] Sodium [Moles/Vol] 140 mmol/L 135 - 145 mmol/L [facility] [employer] Urea nitrogen [Mass/Vol] 18 mg/dL 9 - 20 mg/dL [facility] CBC W Auto Differential pane l (Bld)on 08-17-2023 Basophils (Bld) [#/Vol] 0.0 10*3/uL 0.0 - 0.2 10*3/uL [facility] Basophils/100 WBC (Bld) 0.4 % 0.0 - 2.0 % [facility] Eosinophils (Bld) [#/Vol] 0.1 10*3/uL 0. 0 - 0.5 10*3/uL [facility] Eosinophils/100 WBC (Bld) 1.1 % 0. 0 - 6.0 % [facility] Erythrocyte distribution width (RBC) [Ratio] 13.2 % 11.5 - 15.0 % [facility] Hematocrit (Bld) [Volume fraction] 40.6 % 40.0 - 52.0 % [facility] Hemoglobin (Bld) [Mass/Vol] 13.7 g/dL 13.0 - 18.0 g/dL [facility] [employer] Immature granulocytes (Bld) [#/Vol] 0.0 10*3/uL NINF - 0.1 10*3/uL [facility] Immature granulocytes/100 WB C (Bld) 0.3 % 0.0 - 2.0 % [facility] Interpretation and review of laboratory results Abnormal [facility] IPF 1 [facility] [employer] Lymphocytes (Bld) [#/Vol] 1.3 10*3/uL 1. 0 - 4.3 10*3/uL [facility] Lymphocytes/100 WBC (Bld) 13.7 % Low 15 .0 - 45.0 % [facility] MCH (RBC) [Entitic mass] 29.7 pg 26. 0 - 34.0 pg [facility] MCHC (RBC) [Mass/Vol] 33.7 % 30.5 - 36.0 % [facility] MCV (RBC) [Entitic vol] 88.1 fL 77.0 - 99.0 fL [facility] [employer] Monocytes (Bld) [#/Vol] 0.8 10*3/uL 0.0 - 0.9 10*3/uL [facility] Monocytes/100 WBC (Bld) 8.0 % 5.0 - 13.0 % [facility] Neutrophils (Bld) [#/Vol] 7.2 10*3/uL 1. 8 - 7.5 10*3/uL [facility] Neutrophils/100 WBC (Bld) 76.5 % 38 .0 - 82.0 % [facility] [employer] Nucleated RBC/100 WBC (Bld) [Ratio] 0.0 % [facility] [employer] Platelet mean volume (Bld) [Entitic vol] 8.7 fL Low 9.0 - 12.7 fL [facility] [employer] Platelets (Bld) [#/Vol] 102 10*3/uL Low 140 - 440 10*3/uL [facility] RBC (Bld) [#/Vol] 4.61 10*6/uL 4.40 - 5.90 10*6/uL [facility] WBC (Bld) [#/Vol] 9.4 10*3/uL 3.6 - 10.7 10*3/uL [facility] Urinalysis complete panel (U )Ordered By: [place] Bleacher on 08-17-2023 Bacteria LM.HPF (Urine sed) [#/Area] Few Abnormal Negative /HPF [facility] Bilirubin Ql (U) Negative Negative mg/dL [facility] Clarity (U) Slightly Cloudy Abnormal Clear [facility] alth Color (U) Yellow Lt. Yellow [facility] Epithelial cells.squamous LM.HPF (Urine sed) [#/Area] 3-5 [facility] Glucose Ql (U) Normal Normal (<70) mg/dL [facility] Hemoglobin Ql (U) 1.0 mg/dL Abnormal Negative [facility] Interpretation and review of laboratory results Abnormal [facility] Ketones (U) [Mass/Vol] Negative Negat emelia mg/dL [facility] Leukocyte esterase Test stri p Ql (U) 500 Abnormal Negative [place]rice/uL [facility] Mucus LM.HPF (Urine sed) [#/Area] Few Negative /LPF [facility] Nitrite Ql (U) Negative Negative [facility] th Non-Squamous Epithalial Cells, Urine 0-2 Abnormal Negative /HPF [facility] pH (U) 6.0 [pH] 5.0 - 8.0 pH [facility] Protein (U) [Mass/Vol] 300 mg/dL Abnormal Negative [facility] RBC LM.HPF (Urine sed) [#/Area] /[HPF] Abnormal [facility] Specific gravity (U) [Rel density] 1.025 1.005 - 1.030 [facility] Urobilinogen (U) [Mass/Vol] Normal Normal (0-1) mg/dL [facility] WBC LM.HPF (Urine sed) [#/Area] 26-50 Abnormal [facility] Microscopic performed on unspun specimen, macroscopic performed on supernatant. [facility] CBC W Auto Differential pane l (Bld)Ordered By: Kristine Gray on 04-10-2023 Basophils (Bld) [#/Vol] 0.1 10*3/uL 0.0 - 0.2 10*3/uL [facility] Basophils/100 WBC (Bld) 0.8 % 0.0 - 2.0 % [facility] Eosinophils (Bld) [#/Vol] 0.2 10*3/uL 0. 0 - 0.5 10*3/uL [facility] Eosinophils/100 WBC (Bld) 2.2 % 1. 0 - 6.0 % [facility] [employer] Erythrocyte distribution width (RBC) [Ratio] 13.8 % 11.5 - 14.5 % [facility] Hematocrit (Bld) [Volume fraction] 42.4 % 40.0 - 52.0 % [facility] Hemoglobin (Bld) [Mass/Vol] 14.4 g/dL 13.0 - 18.0 g/dL [facility] Interpretation and review of laboratory results Abnormal [facility] Lymphocytes (Bld) [#/Vol] 1.5 10*3/uL 1. 0 - 4.3 10*3/uL [facility] Lymphocytes/100 WBC (Bld) 22.1 % 20 .0 - 40.0 % [facility] MCH (RBC) [Entitic mass] 29.3 pg 26. 0 - 34.0 pg [facility] MCHC (RBC) [Mass/Vol] 34.0 % 32.0 - 36.0 % [facility] MCV (RBC) [Entitic vol] 86.4 fL 80.0 - 98.0 fL [facility] [employer] Monocytes (Bld) [#/Vol] 0.5 10*3/uL 0.0 - 0.8 10*3/uL [facility] Monocytes/100 WBC (Bld) 6.8 % 2.0 - 10.0 % [facility] Neutrophils (Bld) [#/Vol] 4.6 10*3/uL 1. 8 - 7.0 10*3/uL [facility] Neutrophils/100 WBC (Bld) 68.1 % 40 .0 - 80.0 % [facility] Nucleated RBC/100 WBC (Bld) [Ratio] 0.2 % [facility] [employer] Platelet mean volume (Bld) [Entitic vol] 6.4 fL Low 7.4 - 12.4 fL [facility] Platelets (Bld) [#/Vol] 140 10*3/uL 140 - 440 10*3/uL [facility] RBC (Bld) [#/Vol] 4.90 10*6/uL 4.40 - 5.90 10*6/uL [facility] WBC (Bld) [#/Vol] 6.8 10*3/uL 3.6 - 10.7 10*3/uL [facility] CT Abdomen WO contraston 1. No acute abdominopelvic process. Given the patient's history of rectal bleeding, follow-up endoscopy should be considered. 2. Mild prostatomegaly. 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 CT ABDOMEN AND PELVIS WITHOUT IV CONTRAST CLINICAL INDICATION: Abdominal pain, rectal bleeding TECHNIQUE: Multidetector spiral transaxial sequence was performed through the abdomen and pelvis without intravenous contrast. Images were reconstructed at 3 mm slice width at 3 mm interval. Dose reduction was employed with automated exposure control. COMPARISON: 02/15/2023 FINDINGS: Exam quality: This examination is limited for the evaluation of solid organs and vascular structures due to the lack of intravenous contrast. Chest base: Normal. Liver: Normal size and contour. No identifiable lesion. Biliary tree: Normal caliber. The gallbladder is nondistended. Spleen: Normal. Adrenals: Normal. Pancreas: Normal. Kidneys: No contour abnormality or focal renal lesion. Renal collecting systems: No calculi, hydronephrosis or ureteral dilatation. Free fluid: None. Retroperitoneal/mes enteric lymphadenopathy: None. Bowel: The bowel is normal in caliber. Postsurgical changes of prior sleeve gastrectomy. No bowel wall thickening or adjacent fat stranding. The appendix is not identified, however there is no pericecal fat stranding. Aorta: Normal caliber. Abdominal wall: Normal. Pelvic organs/viscera: The prostate is mildly enlarged with prostatic calcifications. No suspicious pelvic mass. Bladder: No calculi or filling defects. Pelvic lymphadenopathy: None. 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 CT ABDOMEN AND PELVIS WITHOUT IV CONTRAST CLINICAL INDICATION: Abdominal pain, rectal bleeding TECHNIQUE: Multidetector spiral transaxial sequence was performed through the abdomen and pelvis without intravenous contrast. Images were reconstructed at 3 mm slice width at 3 mm interval. Dose reduction was employed with automated exposure control. COMPARISON: 02/15/2023 FINDINGS: Exam quality: This examination is limited for the evaluation of solid organs and vascular structures due to the lack of intravenous contrast. Chest base: Normal. Liver: Normal size and contour. No identifiable lesion. Biliary tree: Normal caliber. The gallbladder is nondistended. Spleen: Normal. Adrenals: Normal. Pancreas: Normal. Kidneys: No contour abnormality or focal renal lesion. Renal collecting systems: No calculi, hydronephrosis or ureteral dilatation. Free fluid: None. Retroperitoneal/mes enteric lymphadenopathy: None. Bowel: The bowel is normal in caliber. Postsurgical changes of prior sleeve gastrectomy. No bowel wall thickening or adjacent fat stranding. The appendix is not identified, however there is no pericecal fat stranding. Aorta: Normal caliber. Abdominal wall: Normal. Pelvic organs/viscera: The prostate is mildly enlarged with prostatic calcifications. No suspicious pelvic mass. Bladder: No calculi or filling defects. Pelvic lymphadenopathy: None. 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 IMPRESSION: 1. No acute abdominopelvic process. Given the patient's history of rectal bleeding, follow-up endoscopy should be considered. 2. Mild prostatomegaly. Report Dictated on Electronically Signed By: Ramón Izaguirre MD Electronically Signed Date/Time: 04/10/2023 2:52 PM EST [facility] Study observation (narrative) [facility] CT Abdomen WO contrastOrdere d By: Ramón Izaguirre on 04-10-2023 [facility] Work Phone: Comprehensive metabolic 1998 panelon 04-10-2023 Albumin [Mass/Vol] 4.2 g/dL 3.5 - 5.0 g/dL [facility] ALP [Catalytic activity/Vol] 80 U/L 38 - 126 U/L [facility] ALT [Catalytic activity/Vol] 19 U/L 0 - 49 U/L [facility] Anion gap [Moles/Vol] 10 mmol/L 3 - 13 mmol/L [facility] AST [Catalytic activity/Vol] 31 U/L 15 - 46 U/L [facility] Bilirubin [Mass/Vol] 0.6 mg/dL 0.2 - 1 .3 mg/dL [facility] Calcium [Mass/Vol] 9.3 mg/dL 8.4 - 10. 4 mg/dL [facility] Chloride [Moles/Vol] 103 mmol/L 98 - 10 7 mmol/L [facility] CO2 [Moles/Vol] 29 mmol/L 22 - 30 mmol/L [facility] Creatinine [Mass/Vol] 1.13 mg/dL 0.66 - 1.25 mg/dL [facility] GFR/1.73 sq M.predicted MDRD (S/P/Bld) [Vol rate/Area] 74.9 mL/min/{1.73_m2} - PINF [facility] Comment on above: Calculation based on the Chronic Kidney Disease Epidemiology Collaboration (CKD-EPI) equation refit without adjustment for race Glucose [Mass/Vol] 99 mg/dL 70 - 100 mg/dL [facility] Potassium [Moles/Vol] 3.9 mmol/L 3.5 - 5.1 mmol/L [facility] Protein [Mass/Vol] 7.6 g/dL 6.3 - 8.2 g/dL [facility] Sodium [Moles/Vol] 142 mmol/L 135 - 145 mmol/L [facility] Urea nitrogen [Mass/Vol] 13 mg/dL 9 - 20 mg/dL [facility] Laboratory - Chemistry and C hemistry - challengeon 04-10-2023 Lipase [Catalytic activity/Vol] 59 U/L 23 - 300 U/L [facility] Magnesium [Mass/Vol] 2.0 mg/dL 1.6 - 2 .3 mg/dL [facility] No Panel Informationon 04-10 Interpretation and review of laboratory results Normal [facility] Basic metabolic 1998 panelon 11-22-2023 Anion gap [Moles/Vol] 9 mmol/L 3 - 13 mmol/L [facility] Calcium [Mass/Vol] 8.5 mg/dL 8.4 - 10. 4 mg/dL [facility] Chloride [Moles/Vol] 108 mmol/L High 98 - 10 7 mmol/L [facility] CO2 [Moles/Vol] 22 mmol/L 22 - 30 mmol/L [facility] Creatinine [Mass/Vol] 1.34 mg/dL High 0.66 - 1.25 mg/dL [facility] GFR/1.73 sq M.predicted MDRD (S/P/Bld) [Vol rate/Area] 61.0 mL/min/{1.73_m2} - PINF [facility] Comment on above: Calculation based on the Chronic Kidney Disease Epidemiology Collaboration (CKD-EPI) equation refit without adjustment for race Glucose [Mass/Vol] 96 mg/dL 70 - 100 mg/dL [facility] Interpretation and review of laboratory results Abnormal [facility] Potassium [Moles/Vol] 4.2 mmol/L 3.5 - 5.1 mmol/L [facility] Sodium [Moles/Vol] 139 mmol/L 135 - 145 mmol/L [facility] Urea nitrogen [Mass/Vol] 15 mg/dL 9 - 20 mg/dL [facility] CBC panel Auto (Bld)Ordered By: Stephanie Murray on 03-04-2023 Erythrocyte distribution width (RBC) [Ratio] 13.6 % 11.5 - 14.5 % [facility] Hematocrit (Bld) [Volume fraction] 43.2 % 40.0 - 52.0 % [facility] Hemoglobin (Bld) [Mass/Vol] 14.7 g/dL 13.0 - 18.0 g/dL [facility] Interpretation and review of laboratory results Abnormal [facility] MCH (RBC) [Entitic mass] 29.4 pg 26. 0 - 34.0 pg [facility] MCHC (RBC) [Mass/Vol] 34.1 % 32.0 - 36.0 % [facility] MCV (RBC) [Entitic vol] 86.1 fL 80.0 - 98.0 fL [facility] Platelet mean volume (Bld) [Entitic vol] 6.8 fL Low 7.4 - 12.4 fL [facility] Platelets (Bld) [#/Vol] 108 10*3/uL Low 140 - 440 10*3/uL [facility] RBC (Bld) [#/Vol] 5.02 10*6/uL 4.40 - 5.90 10*6/uL [facility] WBC (Bld) [#/Vol] 6.7 10*3/uL 3.6 - 10.7 10*3/uL [facility] Laboratory - Chemistry and C hemistry - challengeon 03-04-2023 Troponin I.cardiac [Mass/Vol] ng/mL NINF - 0.034 ng/mL [facility] No Panel Informationon 03-04 P [place] 17 degrees [facility] IN Interval 176 ms [facility] QRS [place] 21 degrees [facility] QRSD [facility]val [facility] 361 ms [facility] QTC Interval 436 ms [facility] T Wave [place] 64 degrees [facility] Sinus rhythm Compared to ECG 02/21/2023 10:27:07 No significant changes Electronically Signed On 03-04-2023 18:44:00 EST by Wiliam Fernando DO - 03/04/2023 IMPRESSION: Sinus rhythm Compared to ECG 02/21/2023 10:27:07 No significant changes Electronically Signed On 03-04-2023 18:44:00 EST by Wiliam Caruso [facility] Troponin I.cardiac [Mass/Vol ]on 03-04-2023 Interpretation and review of laboratory results Normal [facility] Patients with high levels of Biotin oral intake (ie >5 mg/day) may have falsely decreased Troponin levels. [facility] Vital signson 03-04-2023 Heart rate 88 /min bpm [facility] XR Chest Single viewon 03-04 No acute process. Report Dictated on Electronically Signed By: Corby De La Garza DO Electronically Signed Date/Time: 03/04/2023 4:42 PM [facility] [employer] Patient Name: SOPHIE HICKS : 1965 Exam Date/Time: 03/04/2023 16:31 Procedure: XR CHEST 1 VIEW Ordering Provider: CARUSO JOSEPH Reason For Exam: SYNCOPE PORTABLE CHEST: INDICATION: Syncope COMPARISON: 02/21/2023 Obtained at 1606 hours. A single portable AP radiograph of the chest was obtained. The heart is normal in size. The mediastinal silhouette is normal. The lungs are clear. There are no effusions or infiltrates. There is no pleural thickening. Arthritic changes of the spine and shoulders are present. [facility] Corby De La Garza DO - 03/04/2023 Patient Name: SOPHIE HICKS : 1965 Exam Date/Time: 03/04/2023 16:31 Procedure: XR CHEST 1 VIEW Ordering Provider: CARUSO JOSEPH Reason For Exam: SYNCOPE PORTABLE CHEST: INDICATION: Syncope COMPARISON: 02/21/2023 Obtained at 1606 hours. A single portable AP radiograph of the chest was obtained. The heart is normal in size. The mediastinal silhouette is normal. The lungs are clear. There are no effusions or infiltrates. There is no pleural thickening. Arthritic changes of the spine and shoulders are present. IMPRESSION: No acute process. Report Dictated on Electronically Signed By: Corby De La Garza DO Electronically Signed Date/Time: 03/04/2023 4:42 PM EST [facility] Radiology Study observation (narrative) [facility] [employer] XR Chest Single viewOrdered By: Corby De La Garza on 03-04-2023 [facility] [employer] Work Phone: Basic metabolic 1998 panelon 03-03-2023 Anion gap [Moles/Vol] 10 mmol/L 3 - 13 mmol/L [facility] [employer] Calcium [Mass/Vol] 8.7 mg/dL 8.4 - 10. 4 mg/dL [facility] [employer] Chloride [Moles/Vol] 102 mmol/L 98 - 10 7 mmol/L [facility] [employer] CO2 [Moles/Vol] 28 mmol/L 22 - 30 mmol/L [facility] [employer] Creatinine [Mass/Vol] 1.30 mg/dL High 0.66 - 1.25 mg/dL [facility] [employer] GFR/1.73 sq M.predicted MDRD (S/P/Bld) [Vol rate/Area] 63.3 mL/min/{1.73_m2} - PINF [facility] Comment on above: Calculation based on the Chronic Kidney Disease Epidemiology Collaboration (CKD-EPI) equation refit without adjustment for race Glucose [Mass/Vol] 91 mg/dL 70 - 100 mg/dL [facility] Interpretation and review of laboratory results Abnormal [facility] Potassium [Moles/Vol] 3.8 mmol/L 3.5 - 5.1 mmol/L [facility] Sodium [Moles/Vol] 139 mmol/L 135 - 145 mmol/L [facility] Urea nitrogen [Mass/Vol] 13 mg/dL 9 - 20 mg/dL [facility] CBC W Auto Differential pane l (Bld)Ordered By: Delia Hardy on 03-03-2023 Basophils (Bld) [#/Vol] 0.0 10*3/uL 0.0 - 0.2 10*3/uL [facility] Basophils/100 WBC (Bld) 0.8 % 0.0 - 2.0 % [facility] Eosinophils (Bld) [#/Vol] 0.2 10*3/uL 0. 0 - 0.5 10*3/uL [facility] Eosinophils/100 WBC (Bld) 3.6 % 1. 0 - 6.0 % [facility] Erythrocyte distribution width (RBC) [Ratio] 13.5 % 11.5 - 14.5 % [facility] Hematocrit (Bld) [Volume fraction] 41.8 % 40.0 - 52.0 % [facility] Hemoglobin (Bld) [Mass/Vol] 14.1 g/dL 13.0 - 18.0 g/dL [facility] Interpretation and review of laboratory results Abnormal [facility] Lymphocytes (Bld) [#/Vol] 1.5 10*3/uL 1. 0 - 4.3 10*3/uL [facility] Lymphocytes/100 WBC (Bld) 28.5 % 20 .0 - 40.0 % [facility] MCH (RBC) [Entitic mass] 29.3 pg 26. 0 - 34.0 pg [facility] MCHC (RBC) [Mass/Vol] 33.8 % 32.0 - 36.0 % [facility] MCV (RBC) [Entitic vol] 86.7 fL 80.0 - 98.0 fL [facility] Monocytes (Bld) [#/Vol] 0.5 10*3/uL 0.0 - 0.8 10*3/uL [facility] [employer] Monocytes/100 WBC (Bld) 9.5 % 2.0 - 10.0 % [facility] [employer] Neutrophils (Bld) [#/Vol] 2.9 10*3/uL 1. 8 - 7.0 10*3/uL [facility] Neutrophils/100 WBC (Bld) 57.6 % 40 .0 - 80.0 % [facility] [employer] Nucleated RBC/100 WBC (Bld) [Ratio] 0.2 % [facility] [employer] Platelet mean volume (Bld) [Entitic vol] 6.3 fL Low 7.4 - 12.4 fL [facility] [employer] Platelets (Bld) [#/Vol] 83 10*3/uL Low 140 - 440 10*3/uL [facility] [employer] RBC (Bld) [#/Vol] 4.82 10*6/uL 4.40 - 5.90 10*6/uL [facility] [employer] WBC (Bld) [#/Vol] 5.1 10*3/uL 3.6 - 10.7 10*3/uL [facility] Copper, serumon 03-03-2023 Copper [Mass/Vol] 98.4 ug/dL 70.0 - 140.0 ug/dL [facility] Comment on above: INTERPRETIVE INFORMA TION: Copper, Serum or Plasma Elevated results may be due to skin or collection-related contamination, including the use of a noncertified metal-free collection/transport tube. If contamination concerns exist due to elevated levels of serum/plasma copper, confirmation with a second specimen collected in a certified metal-free tube is recommended. Serum copper may be elevated with infection, inflammation, stress, and copper supplementation. In females, elevated copper may also be caused by oral contraceptives and (concentrations may be elevated up to 3 times normal during the third trimester). This test was developed and its performance characteristics determined by [facility]. It has not been cleared or approved by the [place] Food and Drug Administration. This test was performed in a CLIA certified laboratory and is intended for clinical purposes. Performed By: [facility] [address] [place] [id number] Department Helper: Eduard Bailey MD, PhD CLIA Number: [id number] [facility] No Panel Informationon 03-03 [facility] Selenium serumon 03-03-2023 Selenium [Mass/Vol] 87.1 ug/L 23.0 - 190.0 ug/L [facility] Comment on above: INTERPRETIVE INFORMA TION: Selenium, Serum or Plasma Elevated results may be due to contamination from skin or other collection-related issues, including the use of a noncertified metal-free collection/transport tube. If contamination concerns exist due to elevated levels of serum/plasma selenium, confirmation with a second specimen collected in a certified metal-free tube is recommended. Serum selenium levels can be used in the determination of deficiency or toxicity. Plasma and serum contains 75 percent of the selenium measured in whole blood and reflects recent dietary intake. Selenium deficiency can occur endemically or as a result of sustained TPN or restricted diets and has been associated with cardiomyopathy and may exacerbate hypothyroidism. Selenium toxicity is relatively rare. Excess intake of selenium can result in symptoms consistent with selenosis and include gastrointestinal upset, hair loss, white blotchy nails, and mild nerve damage. This test was developed and its performance characteristics determined by [facility]. It has not been cleared or approved by the [place] Food and Drug Administration. This test was performed in a CLIA certified laboratory and is intended for clinical purposes. Performed By: [facility] [address] [place] [id number] Department Helper: Eduard Bailey MD, PhD CLIA Number: [id number] [place] 03-03-2023 Zinc [Mass/Vol] 61.6 ug/dL 60.0 - 120.0 ug/dL [facility] Comment on above: INTERPRETIVE INFORMA TION: Zinc, Serum or Plasma Elevated results may be due to skin or collection-related contamination, including the use of a noncertified metal-free collection/transport tube. If contamination concerns exist due to elevated levels of serum/plasma zinc, confirmation with a second specimen collected in a certified metal-free tube is recommended. Circulating zinc concentrations are dependent on albumin status and are depressed with malnutrition. Zinc may also be lowered with infection, inflammation, stress, oral contraceptives, and . Zinc may be elevated with zinc supplementation or fasting. Elevated zinc concentrations may interfere with copper absorption. This test was developed and its performance characteristics determined by [facility]. It has not been cleared or approved by the [place] Food and Drug Administration. This test was performed in a CLIA certified laboratory and is intended for clinical purposes. Performed By: [facility] [address] [place] [id number] Department Helper: Eduard Bailey MD, PhD CLIA Number: [id number] Basic metabolic 1998 panelon 03-02-2023 Anion gap [Moles/Vol] 10 mmol/L 3 - 13 mmol/L [facility] [employer] Calcium [Mass/Vol] 8.8 mg/dL 8.4 - 10. 4 mg/dL [facility] [employer] Chloride [Moles/Vol] 102 mmol/L 98 - 10 7 mmol/L [facility] [employer] CO2 [Moles/Vol] 24 mmol/L 22 - 30 mmol/L [facility] Creatinine [Mass/Vol] 1.10 mg/dL 0.66 - 1.25 mg/dL [facility] GFR/1.73 sq M.predicted MDRD (S/P/Bld) [Vol rate/Area] 77.3 mL/min/{1.73_m2} - PINF [facility] Comment on above: Calculation based on the Chronic Kidney Disease Epidemiology Collaboration (CKD-EPI) equation refit without adjustment for race Glucose [Mass/Vol] 85 mg/dL 70 - 100 mg/dL [facility] Interpretation and review of laboratory results Normal [facility] Potassium [Moles/Vol] 4.0 mmol/L 3.5 - 5.1 mmol/L [facility] Sodium [Moles/Vol] 136 mmol/L 135 - 145 mmol/L [facility] Urea nitrogen [Mass/Vol] 12 mg/dL 9 - 20 mg/dL [facility] CBC W Auto Differential pane l (Bld)on 03-02-2023 Basophils (Bld) [#/Vol] 0.1 10*3/uL 0.0 - 0.2 10*3/uL [facility] Basophils/100 WBC (Bld) 0.8 % 0.0 - 2.0 % [facility] Eosinophils (Bld) [#/Vol] 0.2 10*3/uL 0. 0 - 0.5 10*3/uL [facility] Eosinophils/100 WBC (Bld) 3.1 % 1. 0 - 6.0 % [facility] Erythrocyte distribution width (RBC) [Ratio] 13.7 % 11.5 - 14.5 % [facility] Hematocrit (Bld) [Volume fraction] 41.6 % 40.0 - 52.0 % [facility] Hemoglobin (Bld) [Mass/Vol] 14.0 g/dL 13.0 - 18.0 g/dL [facility] Interpretation and review of laboratory results Abnormal [facility] Lymphocytes (Bld) [#/Vol] 1.8 10*3/uL 1. 0 - 4.3 10*3/uL [facility] Lymphocytes/100 WBC (Bld) 28.6 % 20 .0 - 40.0 % [facility] MCH (RBC) [Entitic mass] 29.3 pg 26. 0 - 34.0 pg [facility] MCHC (RBC) [Mass/Vol] 33.7 % 32.0 - 36.0 % [facility] MCV (RBC) [Entitic vol] 86.9 fL 80.0 - 98.0 fL [facility] Monocytes (Bld) [#/Vol] 0.5 10*3/uL 0.0 - 0.8 10*3/uL [facility] Monocytes/100 WBC (Bld) 8.3 % 2.0 - 10.0 % [facility] Neutrophils (Bld) [#/Vol] 3.7 10*3/uL 1. 8 - 7.0 10*3/uL [facility] Neutrophils/100 WBC (Bld) 59.2 % 40 .0 - 80.0 % [facility] Nucleated RBC/100 WBC (Bld) [Ratio] 0.0 % [facility] Platelet mean volume (Bld) [Entitic vol] 5.9 fL Low 7.4 - 12.4 fL [facility] Platelets (Bld) [#/Vol] 90 10*3/uL Low 140 - 440 10*3/uL [facility] RBC (Bld) [#/Vol] 4.79 10*6/uL 4.40 - 5.90 10*6/uL [facility] WBC (Bld) [#/Vol] 6.2 10*3/uL 3.6 - 10.7 10*3/uL [facility] POCT glucose meteron 20-2 023 Glucose [Mass/Vol] 87 mg/dL 70 - 100 mg/dL [facility] Interpretation and review of laboratory results Normal [facility] Performed by: [facility] [place], [address] [place], [place] [id number] CLIA ID: [id number] [facility] Glucose [Mass/Vol] 81 mg/dL 70 - 100 mg/dL [facility] Interpretation and review of laboratory results Normal [facility] Performed by: [facility], [address] [place] [id number] CLIA ID: [id number] [facility] PT Coag (Bld) [Time]on 03-02 INR Coag (PPP) [Relative time] 1.1 {INR} 0.9 - 1.1 [facility] Comment on above: Recommended Anticoag ulant Therapy: SEE BELOW ----- INR of 2.0 - 3.0 : - Prophylaxis of Venous Thrombosis (high-risk surgery) - Treatment of Venous Thrombosis - Treatment of Pulmonary Embolism (Includes tissue heart valves, Acute Myocardial Infarction to prevent systemic embolism, Valvular Heart Disease, and Atrial Fibrillation) ----- INR of 2.5 - 3.5 : - Mechanical Prosthetic Valves (high risk) - If oral anticoagulant therapy is used to prevent Myocardial Infarction Interpretation and review of laboratory results Normal [facility] Protime-INRon 03-02-2023 PT Coag (Bld) [Time] 11.4 s 9.0 - 1 2.0 s [facility] 25-hydroxyvitamin D3 [Mass/V ol]on 03-01-2023 Interpretation and review of laboratory results Normal [facility] Therapy is based on measurement of Total 25-OHD with the following classification levels: Less than 20 ng/mL: Indicative of Vit D deficiency 20-30 ng/mL: Suggests Vit D insufficiency Optimal: Greater than or equal to 30 ng/mL Test performed by [email or web address]etitive Immunoassay, measuring Total Vitamin D, not individual fractions. [facility] Basic metabolic 1998 panelon 03-01-2023 Anion gap [Moles/Vol] 7 mmol/L 3 - 13 mmol/L [facility] Calcium [Mass/Vol] 8.5 mg/dL 8.4 - 10. 4 mg/dL [facility] Chloride [Moles/Vol] 104 mmol/L 98 - 10 7 mmol/L [facility] CO2 [Moles/Vol] 26 mmol/L 22 - 30 mmol/L [facility] Creatinine [Mass/Vol] 1.07 mg/dL 0.66 - 1.25 mg/dL [facility] GFR/1.73 sq M.predicted MDRD (S/P/Bld) [Vol rate/Area] 79.9 mL/min/{1.73_m2} - PINF [facility] Comment on above: Calculation based on the Chronic Kidney Disease Epidemiology Collaboration (CKD-EPI) equation refit without adjustment for race Glucose [Mass/Vol] 121 mg/dL High 70 - 100 mg/dL [facility] Interpretation and review of laboratory results Abnormal [facility] Potassium [Moles/Vol] 4.1 mmol/L 3.5 - 5.1 mmol/L [facility] Sodium [Moles/Vol] 137 mmol/L 135 - 145 mmol/L [facility] Urea nitrogen [Mass/Vol] 13 mg/dL 9 - 20 mg/dL [facility] CBC W Auto Differential pane l (Bld)Ordered By: Chante Paula on 03-01-2023 Basophils (Bld) [#/Vol] 0.0 10*3/uL 0.0 - 0.2 10*3/uL [facility] Basophils/100 WBC (Bld) 0.6 % 0.0 - 2.0 % [facility] Eosinophils (Bld) [#/Vol] 0.2 10*3/uL 0. 0 - 0.5 10*3/uL [facility] Eosinophils/100 WBC (Bld) 3.7 % 1. 0 - 6.0 % [facility] Erythrocyte distribution width (RBC) [Ratio] 13.6 % 11.5 - 14.5 % [facility] Hematocrit (Bld) [Volume fraction] 41.0 % 40.0 - 52.0 % [facility] Hemoglobin (Bld) [Mass/Vol] 13.6 g/dL 13.0 - 18.0 g/dL [facility] Interpretation and review of laboratory results Abnormal [facility] Lymphocytes (Bld) [#/Vol] 1.5 10*3/uL 1. 0 - 4.3 10*3/uL [facility] Lymphocytes/100 WBC (Bld) 26.8 % 20 .0 - 40.0 % [facility] MCH (RBC) [Entitic mass] 28.8 pg 26. 0 - 34.0 pg [facility] MCHC (RBC) [Mass/Vol] 33.1 % 32.0 - 36.0 % [facility] MCV (RBC) [Entitic vol] 86.8 fL 80.0 - 98.0 fL [facility] Monocytes (Bld) [#/Vol] 0.5 10*3/uL 0.0 - 0.8 10*3/uL [facility] Monocytes/100 WBC (Bld) 9.1 % 2.0 - 10.0 % [facility] Neutrophils (Bld) [#/Vol] 3.4 10*3/uL 1. 8 - 7.0 10*3/uL [facility] Neutrophils/100 WBC (Bld) 59.8 % 40 .0 - 80.0 % [facility] Nucleated RBC/100 WBC (Bld) [Ratio] 0.0 % [facility] Platelet mean volume (Bld) [Entitic vol] 6.1 fL Low 7.4 - 12.4 fL [facility] Platelets (Bld) [#/Vol] 89 10*3/uL Low 140 - 440 10*3/uL [facility] RBC (Bld) [#/Vol] 4.72 10*6/uL 4.40 - 5.90 10*6/uL [facility] WBC (Bld) [#/Vol] 5.7 10*3/uL 3.6 - 10.7 10*3/uL [facility] Free T4 [Mass/Vol]on 023 Free T4 Dialysis [Mass/Vol] 1.19 ng/dL 0.78 - 2.19 ng/dL [facility] Interpretation and review of laboratory results Normal [facility] Gastrointestinal pathogens p reese OZ+probe (Stl)Ordered By: Evy Staples on 03-01-2023 Adenovirus F 40/41 Not detected Not Detected [facility] Astrovirus Not detected Not Detected [facility] Campylobacter Not detected Not Detected [facility] Cryptosporidium Not detected Not Detected [facility] Cyclospora cayetanensis Not detected Not Detected [facility] Entamoeba histolytica Not detected Not Detected [facility] Enterotoxigenic E coli (ETEC) Not detected Not Detected [facility] Giardia lamblia Not detected Not Detected [facility] Interpretation and review of laboratory results Normal [facility] Norovirus GI/GII Not detected Not Detected [facility] Plesiomonas shigelloides Not detected Not Detected [facility] Rotavirus A Not detected Not Detected [facility] Salmonella Not detected Not Detected [facility] Sapovirus Not detected Not Detected [facility] Shiga toxin-producing E coli (STEC) Not detected Not Detected [facility] Shigella/Enteroinvasive E coli (EIEC) Not detected Not Detected [facility] Vibrio cholerae Not detected Not Detected [facility] Vibrio species Not detected Not Detected [facility] Yersinia enterocolitica Not detected Not Detected [facility] Methodology: Multiplex PCR [facility] Vitamin D Deficiency Screeni ng (Vit D 25)on 03-01-2023 25-hydroxyvitamin D3 [Mass/Vol] 36 ng/mL 30 - 100 ng/mL [facility] Basic metabolic 1998 panelon 02-28-2023 Anion gap [Moles/Vol] 8 mmol/L 3 - 13 mmol/L [facility] Calcium [Mass/Vol] 8.8 mg/dL 8.4 - 10. 4 mg/dL [facility] Chloride [Moles/Vol] 106 mmol/L 98 - 10 7 mmol/L [facility] CO2 [Moles/Vol] 25 mmol/L 22 - 30 mmol/L [facility] Creatinine [Mass/Vol] 1.09 mg/dL 0.66 - 1.25 mg/dL [facility] GFR/1.73 sq M.predicted MDRD (S/P/Bld) [Vol rate/Area] 78.2 mL/min/{1.73_m2} - PINF [facility] Comment on above: Calculation based on the Chronic Kidney Disease Epidemiology Collaboration (CKD-EPI) equation refit without adjustment for race Glucose [Mass/Vol] 101 mg/dL High 70 - 100 mg/dL [facility] Interpretation and review of laboratory results Abnormal [facility] Potassium [Moles/Vol] 4.1 mmol/L 3.5 - 5.1 mmol/L [facility] Sodium [Moles/Vol] 139 mmol/L 135 - 145 mmol/L [facility] Urea nitrogen [Mass/Vol] 14 mg/dL 9 - 20 mg/dL [facility] CBC W Auto Differential pane l (Bld)Ordered By: Rakan Martin on 02-28-2023 Basophils (Bld) [#/Vol] 0.0 10*3/uL 0.0 - 0.2 10*3/uL [facility] Basophils/100 WBC (Bld) 0.7 % 0.0 - 2.0 % [facility] Eosinophils (Bld) [#/Vol] 0.2 10*3/uL 0. 0 - 0.5 10*3/uL [facility] Eosinophils/100 WBC (Bld) 2.8 % 1. 0 - 6.0 % [facility] Erythrocyte distribution width (RBC) [Ratio] 13.9 % 11.5 - 14.5 % [facility] Hematocrit (Bld) [Volume fraction] 41.0 % 40.0 - 52.0 % [facility] Hemoglobin (Bld) [Mass/Vol] 13.6 g/dL 13.0 - 18.0 g/dL [facility] Interpretation and review of laboratory results Abnormal [facility] Lymphocytes (Bld) [#/Vol] 1.4 10*3/uL 1. 0 - 4.3 10*3/uL [facility] Lymphocytes/100 WBC (Bld) 24.6 % 20 .0 - 40.0 % [facility] MCH (RBC) [Entitic mass] 28.8 pg 26. 0 - 34.0 pg [facility] MCHC (RBC) [Mass/Vol] 33.1 % 32.0 - 36.0 % [facility] MCV (RBC) [Entitic vol] 87.1 fL 80.0 - 98.0 fL [facility] Monocytes (Bld) [#/Vol] 0.4 10*3/uL 0.0 - 0.8 10*3/uL [facility] Monocytes/100 WBC (Bld) 7.7 % 2.0 - 10.0 % [facility] Neutrophils (Bld) [#/Vol] 3.7 10*3/uL 1. 8 - 7.0 10*3/uL [facility] Neutrophils/100 WBC (Bld) 64.2 % 40 .0 - 80.0 % [facility] Nucleated RBC/100 WBC (Bld) [Ratio] 0.1 % [facility] Platelet mean volume (Bld) [Entitic vol] 6.5 fL Low 7.4 - 12.4 fL [facility] Platelets (Bld) [#/Vol] 103 10*3/uL Low 140 - 440 10*3/uL [facility] RBC (Bld) [#/Vol] 4.71 10*6/uL 4.40 - 5.90 10*6/uL [facility] WBC (Bld) [#/Vol] 5.7 10*3/uL 3.6 - 10.7 10*3/uL [facility] Cobalamin (Vitamin B12) [Mas s/Vol]on 02-28-2023 Interpretation and review of laboratory results Normal [facility] Ferritinon 02-28-2023 Ferritin [Mass/Vol] 21 ng/mL 18 - 464 ng/mL [facility] Ferritin [Mass/Vol]on 2022 Interpretation and review of laboratory results Normal [facility] Folateon 02-28-2023 Folate [Mass/Vol] 11.2 ng/mL 2.9 - PINF ng/mL [facility] Folate [Mass/Vol]on 02-29-20 23 Interpretation and review of laboratory results Normal [facility] Free T3 [Mass/Vol]on 023 Interpretation and review of laboratory results Normal [facility] Iron and Iron binding capaci ty panelon 02-28-2023 Interpretation and review of laboratory results Normal [facility] Iron [Mass/Vol] 84 ug/dL 49 - 181 ug/dL [facility] T3, freeon 02-28-2023 Free T3 [Mass/Vol] 4.62 pg/mL 2.77 - 5.27 pg/mL [facility] TSHon 02-28-2023 TSH Qn 7.294 m[IU]/L [facility] Interpretation and review of laboratory results Abnormal [facility] Vitamin B12on 02-28-2023 Cobalamin (Vitamin B12) [Mass/Vol] 315 pg/mL 239 - 931 pg/mL [facility] XR Abdomen and RF Gastrointe stinal tract upper W contrast Arian 02-28-2023 [place] deformity of the duodenal bulb suggesting peptic ulcer disease. Mucosal thickening the duodenal bulb. Consider endoscopy. Changes consistent with sleeve gastrectomy. Report Dictated on Electronically Signed By: Corby De La Garza DO Electronically Signed Date/Time: 02/28/2023 2:16 PM [facility] Patient Name: SOPHIE HICKS : 1965 Exam Date/Time: 02/28/2023 09:05 Procedure: FL UPPER GI WITH KUB Ordering Provider: RODRIGUEZ JAY Reason For Exam: intractable n/v, abd pain, LSG 11/2021 GASTROGRAFIN UGI SERIES: CLINICAL INDICATIONS: Nausea and vomiting. Abdominal pain. History of sleeve gastrectomy 11/2021 COMPARISON: 12/04/2021 TECHNIQUE: Gastrografin was administered orally in the upright position. FLUOROSCOPY DOSE: Ka,r= 206.5 mGy FINDINGS: Gastrografin was administered in the upright position. The esophagus is of normal course and caliber. Laparoscopic sleeve gastrectomy ( LSG ) is seen with longitudinal resection of the fundus, body, and antrum of the stomach. Approximately two thirds gastrectomy was done, leaving a remaining tubular stomach conduit. There is no extravasation. There is prompt emptying of the conduit. The gastric mucosa appears unremarkable. There is cloverleaf deformity of the duodenal bulb suggesting peptic ulcer disease. There is thickening of the duodenal bulb. The remainder of the duodenum is unremarkable. There is no obstruction of flow contrast. [facility] Frederic Corby DO - 02/28/2023 [facility] 1965 [id number] Exam Date/Time: 02/28/2023 09:05 Procedure: FL UPPER GI WITH KUB Ordering Provider: RODRIGUEZ JAY Reason For Exam: intractable n/v, abd pain, LSG 11/2021 GASTROGRAFIN UGI SERIES: CLINICAL INDICATIONS: Nausea and vomiting. Abdominal pain. History of sleeve gastrectomy 11/2021 COMPARISON: 12/04/2021 TECHNIQUE: Gastrografin was administered orally in the upright position. FLUOROSCOPY DOSE: Ka,r= 206.5 mGy FINDINGS: Gastrografin was administered in the upright position. The esophagus is of normal course and caliber. Laparoscopic sleeve gastrectomy ( LSG ) is seen with longitudinal resection of the fundus, body, and antrum of the stomach. Approximately two thirds gastrectomy was done, leaving a remaining tubular stomach conduit. There is no extravasation. There is prompt emptying of the conduit. The gastric mucosa appears unremarkable. There is cloverleaf deformity of the duodenal bulb suggesting peptic ulcer disease. There is thickening of the duodenal bulb. The remainder of the duodenum is unremarkable. There is no obstruction of flow contrast. IMPRESSION: [place] deformity of the duodenal bulb suggesting peptic ulcer disease. Mucosal thickening the duodenal bulb. Consider endoscopy. Changes consistent with sleeve gastrectomy. Report Dictated on Electronically Signed By: Corby De La Garza DO Electronically Signed Date/Time: 02/28/2023 2:16 PM EST [employer] Radiology Study observation (narrative) [facility] [employer] XR Abdomen and RF Gastrointe stinal tract upper W contrast POOrdered By: Corby De La Garza on 02-28-2023 [employer] Work Phone: Basic metabolic 1998 panelon 02-27-2023 Anion gap [Moles/Vol] 9 mmol/L 3 - 13 mmol/L [facility] [employer] Calcium [Mass/Vol] 8.6 mg/dL 8.4 - 10. 4 mg/dL [facility] Chloride [Moles/Vol] 107 mmol/L 98 - 10 7 mmol/L [facility] [employer] CO2 [Moles/Vol] 24 mmol/L 22 - 30 mmol/L [facility] [employer] Creatinine [Mass/Vol] 1.06 mg/dL 0.66 - 1.25 mg/dL [facility] GFR/1.73 sq M.predicted MDRD (S/P/Bld) [Vol rate/Area] 80.8 mL/min/{1.73_m2} - PINF [facility] [employer] Comment on above: Calculation based on the Chronic Kidney Disease Epidemiology Collaboration (CKD-EPI) equation refit without adjustment for race Glucose [Mass/Vol] 101 mg/dL High 70 - 100 mg/dL [facility] Potassium [Moles/Vol] 3.9 mmol/L 3.5 - 5.1 mmol/L [facility] [employer] Sodium [Moles/Vol] 139 mmol/L 135 - 145 mmol/L [facility] [employer] [employer] Urea nitrogen [Mass/Vol] 13 mg/dL 9 - 20 mg/dL [facility] [employer] CBC W Auto Differential pane l (Bld)Ordered By: Liseth Winkler on 02-27-2023 Basophils (Bld) [#/Vol] 0.0 10*3/uL 0.0 - 0.2 10*3/uL [facility] Basophils/100 WBC (Bld) 0.4 % 0.0 - 2.0 % [facility] Eosinophils (Bld) [#/Vol] 0.2 10*3/uL 0. 0 - 0.5 10*3/uL [facility] Eosinophils/100 WBC (Bld) 2.1 % 1. 0 - 6.0 % [facility] Erythrocyte distribution width (RBC) [Ratio] 14.2 % 11.5 - 14.5 % [facility] Hematocrit (Bld) [Volume fraction] 40.7 % 40.0 - 52.0 % [facility] Hemoglobin (Bld) [Mass/Vol] 13.7 g/dL 13.0 - 18.0 g/dL [facility] Interpretation and review of laboratory results Abnormal [facility] Lymphocytes (Bld) [#/Vol] 1.4 10*3/uL 1. 0 - 4.3 10*3/uL [facility] Lymphocytes/100 WBC (Bld) 19.3 % Low 20 .0 - 40.0 % [facility] MCH (RBC) [Entitic mass] 28.7 pg 26. 0 - 34.0 pg [facility] MCHC (RBC) [Mass/Vol] 33.7 % 32.0 - 36.0 % [facility] MCV (RBC) [Entitic vol] 85.4 fL 80.0 - 98.0 fL [facility] Monocytes (Bld) [#/Vol] 0.5 10*3/uL 0.0 - 0.8 10*3/uL [facility] Monocytes/100 WBC (Bld) 6.3 % 2.0 - 10.0 % [facility] Neutrophils (Bld) [#/Vol] 5.2 10*3/uL 1. 8 - 7.0 10*3/uL [facility] Neutrophils/100 WBC (Bld) 71.9 % 40 .0 - 80.0 % [facility] Nucleated RBC/100 WBC (Bld) [Ratio] 0.0 % [facility] Platelet mean volume (Bld) [Entitic vol] 6.6 fL Low 7.4 - 12.4 fL [facility] Platelets (Bld) [#/Vol] 118 10*3/uL Low 140 - 440 10*3/uL [facility] RBC (Bld) [#/Vol] 4.77 10*6/uL 4.40 - 5.90 10*6/uL [facility] WBC (Bld) [#/Vol] 7.3 10*3/uL 3.6 - 10.7 10*3/uL [facility] Hepatic function 2000 panelo n 02-27-2023 Albumin [Mass/Vol] 4.2 g/dL 3.5 - 5.0 g/dL [facility] ALP [Catalytic activity/Vol] 66 U/L 38 - 126 U/L [facility] ALT [Catalytic activity/Vol] 26 U/L 0 - 49 U/L [facility] AST [Catalytic activity/Vol] 49 U/L High 15 - 46 U/L [facility] Bilirubin [Mass/Vol] 0.6 mg/dL 0.2 - 1 .3 mg/dL [facility] Bilirubin.conjugated [Mass/Vol] 0.0 mg/dL 0.0 - 0.3 mg/dL [facility] Protein [Mass/Vol] 7.2 g/dL 6.3 - 8.2 g/dL [facility] Lipaseon 02-27-2023 Lipase [Catalytic activity/Vol] 77 U/L 23 - 300 U/L [facility] Lipase [Catalytic activity/V ol]on 02-27-2023 Interpretation and review of laboratory results Normal [facility] No Panel Informationon 02-27 Interpretation and review of laboratory results Abnormal [facility] POCT glucose checkon 023 Glucose [Mass/Vol] 94 mg/dL [facility] Interpretation and review of laboratory results Normal [facility] POCT glucose meteron 023 Glucose [Mass/Vol] 94 mg/dL 70 - 100 mg/dL [facility] Interpretation and review of laboratory results Normal [facility], [address] [place] [address] CLIA ID: [id number] [facility] US Abdomen limitedon 023 1. Coarse, echogenic liver suggesting hepatic steatosis or other hepatocellular disease. No sonographic evidence of a liver mass. 2. No acute process. Report Dictated on Electronically Signed By: Ramón Izaguirre MD Electronically Signed Date/Time: 02/27/2023 5:01 PM EST [facility] Patient Name: SOPHIE HICKS : 1965 Exam Date/Time: 02/27/2023 17:00 Procedure: US ABDOMEN LIMITED Ordering Provider: MILES AMY Reason For Exam: RUQ abdominal pain, no prior imaging ULTRASOUND ABDOMEN LIMITED CLINICAL INDICATION: Right upper quadrant pain TECHNIQUE: Ultrasound of the right upper quadrant COMPARISON: 02/15/2023 FINDINGS: Pancreas: The pancreas is obscured by bowel gas Liver: Coarsened echotexture and generalized increased echogenicity. The liver is normal in size with normal contours. No focal lesion identified. Gallbladder: Normal. Per the architectural technologist, the sonographic Brown's sign was negative. Bile ducts: No intrahepatic and extrahepatic biliary dilatation Common bile duct: 2 mm Right kidney: Normal size measuring 10.7 cm. Normal parenchymal echogenicity without solid mass or hydronephrosis. Ascites: None [facility] Ramón Izaguirre MD - 02/27/2023 Patient Name: SOPHIE HICKS : 1965 Exam Date/Time: 02/27/2023 17:00 Procedure: US ABDOMEN LIMITED Ordering Provider: MILES AMY Reason For Exam: RUQ abdominal pain, no prior imaging ULTRASOUND ABDOMEN LIMITED CLINICAL INDICATION: Right upper quadrant pain TECHNIQUE: Ultrasound of the right upper quadrant COMPARISON: 02/15/2023 FINDINGS: Pancreas: The pancreas is obscured by bowel gas Liver: Coarsened echotexture and generalized increased echogenicity. The liver is normal in size with normal contours. No focal lesion identified. Gallbladder: Normal. Per the architectural technologist, the sonographic Brown's sign was negative. Bile ducts: No intrahepatic and extrahepatic biliary dilatation Common bile duct: 2 mm Right kidney: Normal size measuring 10.7 cm. Normal parenchymal echogenicity without solid mass or hydronephrosis. Ascites: None IMPRESSION: 1. Coarse, echogenic liver suggesting hepatic steatosis or other hepatocellular disease. No sonographic evidence of a liver mass. 2. No acute process. Report Dictated on Electronically Signed By: Ramón Izaguirre MD Electronically Signed Date/Time: 02/27/2023 5:01 PM EST [facility] Radiology Study observation (narrative) [facility] US Abdomen limitedOrdered By : Ramón Izaguirre on 02-27-2023 [facility] [employer] Work Phone: CBC panel Auto (Bld)Ordered By: Mariana Nick on 02-21-2023 Erythrocyte distribution width (RBC) [Ratio] 14.2 % 11.5 - 14.5 % [facility] Hematocrit (Bld) [Volume fraction] 40.7 % 40.0 - 52.0 % [facility] Hemoglobin (Bld) [Mass/Vol] 13.8 g/dL 13.0 - 18.0 g/dL [facility] Interpretation and review of laboratory results Abnormal [facility] MCH (RBC) [Entitic mass] 28.9 pg 26. 0 - 34.0 pg [facility] MCHC (RBC) [Mass/Vol] 33.9 % 32.0 - 36.0 % [facility] MCV (RBC) [Entitic vol] 85.3 fL 80.0 - 98.0 fL [facility] Platelet mean volume (Bld) [Entitic vol] 7.0 fL Low 7.4 - 12.4 fL [facility] Platelets (Bld) [#/Vol] 108 10*3/uL Low 140 - 440 10*3/uL [facility] RBC (Bld) [#/Vol] 4.77 10*6/uL 4.40 - 5.90 10*6/uL [facility] WBC (Bld) [#/Vol] 6.1 10*3/uL 3.6 - 10.7 10*3/uL [facility] Comprehensive metabolic 1998 panelon 02-21-2023 Albumin [Mass/Vol] 4.2 g/dL 3.5 - 5.0 g/dL [facility] ALP [Catalytic activity/Vol] 71 U/L 38 - 126 U/L [facility] ALT [Catalytic activity/Vol] 20 U/L 0 - 49 U/L [facility] Anion gap [Moles/Vol] 10 mmol/L 3 - 13 mmol/L [facility] AST [Catalytic activity/Vol] 31 U/L 15 - 46 U/L [facility] Bilirubin [Mass/Vol] 0.9 mg/dL 0.2 - 1 .3 mg/dL [facility] [employer] Calcium [Mass/Vol] 8.8 mg/dL 8.4 - 10. 4 mg/dL [facility] [employer] Chloride [Moles/Vol] 105 mmol/L 98 - 10 7 mmol/L [facility] [employer] CO2 [Moles/Vol] 24 mmol/L 22 - 30 mmol/L [facility] [employer] Creatinine [Mass/Vol] 1.01 mg/dL 0.66 - 1.25 mg/dL [facility] [employer] GFR/1.73 sq M.predicted MDRD (S/P/Bld) [Vol rate/Area] 85.7 mL/min/{1.73_m2} - PINF [facility] [employer] Comment on above: Calculation based on the Chronic Kidney Disease Epidemiology Collaboration (CKD-EPI) equation refit without adjustment for race Glucose [Mass/Vol] 90 mg/dL 70 - 100 mg/dL [facility] [employer] Potassium [Moles/Vol] 3.8 mmol/L 3.5 - 5.1 mmol/L [facility] [employer] Protein [Mass/Vol] 6.9 g/dL 6.3 - 8.2 g/dL [facility] [employer] Sodium [Moles/Vol] 139 mmol/L 135 - 145 mmol/L [facility] [employer] Urea nitrogen [Mass/Vol] 13 mg/dL 9 - 20 mg/dL [facility] [employer] Laboratory - Chemistry and C hemistry - challengeon 02-21-2023 Troponin I.cardiac [Mass/Vol] ng/mL NINF - 0.034 ng/mL [facility] [employer] Lipase [Catalytic activity/Vol] 77 U/L 23 - 300 U/L [facility] [employer] No Panel InformationOrdered By: Eduard Guan on 02-21-2023 P [place] 30 degrees [facility] [employer] Work Phone: IN Interval 172 ms [facility] [employer] Work Phone: QRS [place] 43 degrees [facility] [employer] Work Phone: QRSD Interval 99 ms [facility] [employer] Work Phone: QT Interval 376 ms [facility] [employer] Work Phone: QTC Interval 421 ms [facility] [employer] Work Phone: T Wave [place] 25 degrees [facility] [employer] Work Phone: [facility] [employer] Work Phone: No Panel Informationon 02-21 Sinus rhythm Electronically Signed On 02-21-2023 17:18:43 EST by Eduard Traylor MD - 02/21/2023 IMPRESSION: Sinus rhythm Electronically Signed On 02-21-2023 17:18:43 EST by Eduard Guan [facility] Interpretation and review of laboratory results Normal [facility] [employer] Troponin I.cardiac [Mass/Vol ]on 02-21-2023 Interpretation and review of laboratory results Normal [facility] [employer] Patients with high levels of Biotin oral intake (ie >5 mg/day) may have falsely decreased Troponin levels. [employer] Vital signsOrdered By: Padmini Guan on 02-21-2023 Heart rate 75 /min bpm [employer] Work Phone: XR Chest Single viewon 02-21 Chronic findings. No acute pulmonary process. Report Dictated on Electronically Signed By: Nguyễn Weinberg MD Electronically Signed Date/Time: 02/21/2023 1:04 PM EST [employer] [facility] Patient Name: SOPHIE HICKS : 1965 Exam Date/Time: 02/21/2023 13:49 Procedure: XR CHEST 1 VIEW Ordering Provider: SMITH QUENTIN Reason For Exam: angina, epigastric pain CHEST (Frontal View) History: Chest pain Comparison: 07/03/2022 Findings: Frontal chest view shows crowded lung markings in the bases without acute infiltrate or congestion. Right diaphragm is mildly elevated. The heart is normal in size. There is no mediastinal widening or pleural effusion. There are surgical anchors at the bilateral humeral heads, spondylosis, and partially visualized cervical spine surgical hardware. [facility] [employer] [facility] Nguyễn Weinberg MD - 02/21/2023 Patient Name: SOPHIE HICKS : 1965 Exam Date/Time: 02/21/2023 13:49 Procedure: XR CHEST 1 VIEW Ordering Provider: SMITH QUENTIN Reason For Exam: angina, epigastric pain CHEST (Frontal View) History: Chest pain Comparison: 07/03/2022 Findings: Frontal chest view shows crowded lung markings in the bases without acute infiltrate or congestion. Right diaphragm is mildly elevated. The heart is normal in size. There is no mediastinal widening or pleural effusion. There are surgical anchors at the bilateral humeral heads, spondylosis, and partially visualized cervical spine surgical hardware. IMPRESSION: Chronic findings. No acute pulmonary process. Report Dictated on Electronically Signed By: Nguyễn Weinberg MD Electronically Signed Date/Time: 02/21/2023 1:04 PM EST [facility] Radiology Study observation (narrative) [facility] [employer] XR Chest Single viewOrdered By: Nguyễn Weinberg on 02-21-2023 [facility] [employer] Work Phone: CBC panel Auto (Bld)Ordered By: Liseth Winkler on 02-15-2023 Erythrocyte distribution width (RBC) [Ratio] 13.8 % 11.5 - 14.5 % [facility] Hematocrit (Bld) [Volume fraction] 42.5 % 40.0 - 52.0 % [facility] Hemoglobin (Bld) [Mass/Vol] 14.1 g/dL 13.0 - 18.0 g/dL [facility] Interpretation and review of laboratory results Abnormal [facility] MCH (RBC) [Entitic mass] 28.6 pg 26. 0 - 34.0 pg [facility] MCHC (RBC) [Mass/Vol] 33.1 % 32.0 - 36.0 % [facility] MCV (RBC) [Entitic vol] 86.4 fL 80.0 - 98.0 fL [facility] Platelet mean volume (Bld) [Entitic vol] 6.6 fL Low 7.4 - 12.4 fL [facility] Platelets (Bld) [#/Vol] 99 10*3/uL Low 140 - 440 10*3/uL [facility] RBC (Bld) [#/Vol] 4.92 10*6/uL 4.40 - 5.90 10*6/uL [facility] WBC (Bld) [#/Vol] 6.3 10*3/uL 3.6 - 10.7 10*3/uL [facility] CT Abdomen WO contraston Normal examination. Report Dictated on Electronically Signed By: Artem Kruse MD Electronically Signed Date/Time: 02/15/2023 3:11 PM EST [facility] Patient Name: SOPHIE HICKS : 1965 Exam Date/Time: 02/15/2023 15:08 Procedure: CT ABDOMEN PELVIS WO IV CONTRAST Ordering Provider: FINK DANIEL Reason For Exam: Flank pain, kidney stone suspected CT abdomen and pelvis without contrast HISTORY: Flank pain Protocol: 3 mm axial images without intravenous contrast Dose reduction was employed with automated exposure control. COMPARISON: 06/09/2022 The liver, gallbladder, spleen, pancreas, adrenals and kidneys are normal. No bowel inflammation or bowel obstruction. No free fluid. The bladder is unremarkable. [facility] Artem Kruse MD - 02/15/2023 Patient Name: SOPHIE HICKS : 1965 Exam Date/Time: 02/15/2023 15:08 Procedure: CT ABDOMEN PELVIS WO IV CONTRAST Ordering Provider: FINK DANIEL Reason For Exam: Flank pain, kidney stone suspected CT abdomen and pelvis without contrast HISTORY: Flank pain Protocol: 3 mm axial images without intravenous contrast Dose reduction was employed with automated exposure control. COMPARISON: 06/09/2022 The liver, gallbladder, spleen, pancreas, adrenals and kidneys are normal. No bowel inflammation or bowel obstruction. No free fluid. The bladder is unremarkable. IMPRESSION: Normal examination. Report Dictated on Electronically Signed By: Artem Kruse MD Electronically Signed Date/Time: 02/15/2023 3:11 PM EST [facility] Radiology Study observation (narrative) [facility] [employer] CT Abdomen WO contrastOrdere d By: Artem Kruse on 02-15-2023 [employer] Work Phone: Comprehensive metabolic 1998 panelon 02-15-2023 Albumin [Mass/Vol] 4.2 g/dL 3.5 - 5.0 g/dL [facility] ALP [Catalytic activity/Vol] 72 U/L 38 - 126 U/L [facility] ALT [Catalytic activity/Vol] 20 U/L 0 - 49 U/L [facility] Anion gap [Moles/Vol] 8 mmol/L 3 - 13 mmol/L [facility] AST [Catalytic activity/Vol] 32 U/L 15 - 46 U/L [facility] Bilirubin [Mass/Vol] 0.6 mg/dL 0.2 - 1 .3 mg/dL [facility] Calcium [Mass/Vol] 8.9 mg/dL 8.4 - 10. 4 mg/dL [facility] Chloride [Moles/Vol] 106 mmol/L 98 - 10 7 mmol/L [facility] CO2 [Moles/Vol] 25 mmol/L 22 - 30 mmol/L [facility] Creatinine [Mass/Vol] 1.40 mg/dL High 0.66 - 1.25 mg/dL [facility] GFR/1.73 sq M.predicted MDRD (S/P/Bld) [Vol rate/Area] 57.9 mL/min/{1.73_m2} Low - PINF [facility] Comment on above: Calculation based on the Chronic Kidney Disease Epidemiology Collaboration (CKD-EPI) equation refit without adjustment for race Glucose [Mass/Vol] 104 mg/dL High 70 - 100 mg/dL [facility] Interpretation and review of laboratory results Abnormal [facility] Potassium [Moles/Vol] 4.1 mmol/L 3.5 - 5.1 mmol/L [facility] Protein [Mass/Vol] 7.3 g/dL 6.3 - 8.2 g/dL [facility] Sodium [Moles/Vol] 139 mmol/L 135 - 145 mmol/L [facility] Urea nitrogen [Mass/Vol] 14 mg/dL 9 - 20 mg/dL [facility] Laboratory - Chemistry and C hemistry - challengeon 02-15-2023 Lipase [Catalytic activity/Vol] 72 U/L 23 - 300 U/L [facility] Lipase [Catalytic activity/V ol]on 02-15-2023 Interpretation and review of laboratory results Normal [facility] No Panel Informationon 02-15 [facility] Basic metabolic 1998 panelon 07-03-2022 Anion gap [Moles/Vol] 4 mmol/L 3 - 13 mmol/L [facility] Calcium [Mass/Vol] 8.6 mg/dL 8.4 - 10. 4 mg/dL [facility] Chloride [Moles/Vol] 106 mmol/L 98 - 10 7 mmol/L [facility] CO2 [Moles/Vol] 30 mmol/L 22 - 30 mmol/L [facility] Creatinine [Mass/Vol] 1.12 mg/dL 0.66 - 1.25 mg/dL [facility] GFR/1.73 sq M.predicted MDRD (S/P/Bld) [Vol rate/Area] 76.1 mL/min/{1.73_m2} - PINF [facility] Comment on above: Calculation based on the Chronic Kidney Disease Epidemiology Collaboration (CKD-EPI) equation refit without adjustment for race Glucose [Mass/Vol] 92 mg/dL 70 - 100 mg/dL [facility] Interpretation and review of laboratory results Normal [facility] Potassium [Moles/Vol] 4.0 mmol/L 3.5 - 5.1 mmol/L [facility] Sodium [Moles/Vol] 140 mmol/L 135 - 145 mmol/L [facility] Urea nitrogen [Mass/Vol] 16 mg/dL 9 - 20 mg/dL [facility] CBC W Auto Differential pane l (Bld)Ordered By: Odette Gonzalez on 07-03-2022 Basophils (Bld) [#/Vol] 0.0 10*3/uL 0.0 - 0.2 10*3/uL [facility] Basophils/100 WBC (Bld) 0.2 % 0.0 - 2.0 % [facility] Eosinophils (Bld) [#/Vol] 0.1 10*3/uL 0. 0 - 0.5 10*3/uL [facility] Eosinophils/100 WBC (Bld) 3.0 % 1. 0 - 6.0 % [facility] Erythrocyte distribution width (RBC) [Ratio] 13.8 % 11.5 - 14.5 % [facility] Hematocrit (Bld) [Volume fraction] 39.1 % Low 40.0 - 52.0 % [facility] Hemoglobin (Bld) [Mass/Vol] 13.1 g/dL 13.0 - 18.0 g/dL [facility] [employer] Interpretation and review of laboratory results Abnormal [facility] [employer] Lymphocytes (Bld) [#/Vol] 1.1 10*3/uL 1. 0 - 4.3 10*3/uL [facility] [employer] Lymphocytes/100 WBC (Bld) 23.4 % 20 .0 - 40.0 % [facility] [employer] MCH (RBC) [Entitic mass] 28.8 pg 26. 0 - 34.0 pg [facility] [employer] MCHC (RBC) [Mass/Vol] 33.5 % 32.0 - 36.0 % [facility] [employer] MCV (RBC) [Entitic vol] 85.9 fL 80.0 - 98.0 fL [facility] [employer] Monocytes (Bld) [#/Vol] 0.7 10*3/uL 0.0 - 0.8 10*3/uL [facility] [employer] Monocytes/100 WBC (Bld) 14.9 % High 2.0 - 10.0 % [facility] [employer] Neutrophils (Bld) [#/Vol] 2.7 10*3/uL 1. 8 - 7.0 10*3/uL [facility] [employer] Neutrophils/100 WBC (Bld) 58.5 % 40 .0 - 80.0 % [facility] [employer] Nucleated RBC/100 WBC (Bld) [Ratio] 0.1 % [facility] [employer] Platelet mean volume (Bld) [Entitic vol] 6.2 fL Low 7.4 - 12.4 fL [facility] [employer] Platelets (Bld) [#/Vol] 75 10*3/uL Low 140 - 440 10*3/uL [facility] [employer] RBC (Bld) [#/Vol] 4.55 10*6/uL 4.40 - 5.90 10*6/uL [facility] [employer] WBC (Bld) [#/Vol] 4.6 10*3/uL 3.6 - 10.7 10*3/uL [facility] [employer] [facility] [employer] ECG 12 leadOrdered By: Louisa Marina on 07-03-2022 Heart rate 79 /min bpm [employer] Work Phone: P [place] 27 degrees [employer] Work Phone: IN Interval 168 ms [employer] Work Phone: QRS [place] 30 degrees [employer] Work Phone: QRSD Interval 88 ms [facility]: QT Interval 368 ms [facility] [employer] Work Phone: QTC Interval 422 ms [employer] Work Phone: T Wave [place] 67 degrees [employer] Work Phone: [employer] Work Phone: ECG 12 leadon 07-03-2022 SINUS RHYTHM Compared to ECG 12/17/2021 14:37:44 No significant changes Electronically Signed On 07-03-2022 18:18:27 EDT by Louisa Marina CV Louisa Decker MD - 07/03/2022 IMPRESSION: SINUS RHYTHM Compared to ECG 12/17/2021 14:37:44 No significant changes Electronically Signed On 07-03-2022 18:18:27 EDT by Louisa Marina [facility] [employer] Natriuretic peptide B [Mass/ Vol]on 07-03-2022 Natriuretic peptide B (Bld) [Mass/Vol] 93 pg/mL 0 - 125 pg/mL [facility] [employer] No Panel Informationon 07-03 Interpretation and review of laboratory results Normal [facility] [employer] Troponin Ion 07-03-2022 Troponin I.cardiac [Mass/Vol] ng/mL 0.000 - 0.034 ng/mL [facility] [employer] Troponin I.cardiac [Mass/Vol ]on 07-03-2022 Patients with high levels of Biotin oral intake (ie >5 mg/day) may have falsely decreased Troponin levels. [facility] [employer] XR Chest Single viewon 07-03 Lines, tubes, and devices: None. Lungs and pleura: Right hemidiaphragm is again mildly elevated. No consolidation. No pleural effusion or pneumothorax. Cardiomediastinal silhouette: Able cardiomediastinal silhouette. Other: Epigastric surgical clips. Postoperative changes at the right humeral head. Report Dictated on Electronically Signed By: Gamaliel Barnes Electronically Signed Date/Time: 07/03/2022 5:38 PM EDT [facility] Patient Name: SOPHIE HICKS : 1965 Exam Date/Time: 07/03/2022 17:10 Procedure: XR CHEST 1 VIEW Ordering Provider: MORRISON MATTHEW Reason For Exam: Chest tightness EXAMINATION: CHEST RADIOGRAPH (SINGLE VIEW AP OR PA) Clinical History: Chest tightness Comparison: Chest radiograph 12/04/2021 RESULT: See impression [facility] Gamaliel Barnes MD - 07/03/2022 [facility] 1965 [id number] Exam Date/Time: 07/03/2022 17:10 Procedure: XR CHEST 1 VIEW Ordering Provider: MRORISON MATTHEW Reason For Exam: Chest tightness EXAMINATION: CHEST RADIOGRAPH (SINGLE VIEW AP OR PA) Clinical History: Chest tightness Comparison: Chest radiograph 12/04/2021 RESULT: See impression IMPRESSION: Lines, tubes, and devices: None. Lungs and pleura: Right hemidiaphragm is again mildly elevated. No consolidation. No pleural effusion or pneumothorax. Cardiomediastinal silhouette: Able cardiomediastinal silhouette. Other: Epigastric surgical clips. Postoperative changes at the right humeral head. Report Dictated on Electronically Signed By: Gamaliel Barnes Electronically Signed Date/Time: 07/03/2022 5:38 PM EDT [facility] Radiology Study observation (narrative) [facility] [employer] XR Chest Single viewOrdered By: Gamaliel Barnes on 07-03-2022 [facility] [employer] Work Phone: Basic metabolic 1998 panelon 06-10-2022 Anion gap [Moles/Vol] 5 mmol/L 3 - 13 mmol/L [facility] [employer] Calcium [Mass/Vol] 8.8 mg/dL 8.4 - 10. 4 mg/dL [facility] [employer] Chloride [Moles/Vol] 104 mmol/L 98 - 10 7 mmol/L [facility] [employer] CO2 [Moles/Vol] 27 mmol/L 22 - 30 mmol/L [facility] Creatinine [Mass/Vol] 1.20 mg/dL 0.66 - 1.25 mg/dL [facility] [employer] GFR/1.73 sq M.predicted MDRD (S/P/Bld) [Vol rate/Area] 70.1 mL/min/{1.73_m2} - PINF [facility] Comment on above: Calculation based on the Chronic Kidney Disease Epidemiology Collaboration (CKD-EPI) equation refit without adjustment for race Glucose [Mass/Vol] 99 mg/dL 70 - 100 mg/dL [facility] Interpretation and review of laboratory results Normal [facility] Potassium [Moles/Vol] 3.8 mmol/L 3.5 - 5.1 mmol/L [facility] Sodium [Moles/Vol] 136 mmol/L 135 - 145 mmol/L [facility] Urea nitrogen [Mass/Vol] 19 mg/dL 9 - 20 mg/dL [facility] CBC panel Auto (Bld)Ordered By: Loc Hwang on 06-10-2022 Erythrocyte distribution width (RBC) [Ratio] 14.2 % 11.5 - 14.5 % [facility] Hematocrit (Bld) [Volume fraction] 39.4 % Low 40.0 - 52.0 % [facility] Hemoglobin (Bld) [Mass/Vol] 13.2 g/dL 13.0 - 18.0 g/dL [facility] Interpretation and review of laboratory results Abnormal [facility] MCH (RBC) [Entitic mass] 28.8 pg 26. 0 - 34.0 pg [facility] MCHC (RBC) [Mass/Vol] 33.4 % 32.0 - 36.0 % [facility] MCV (RBC) [Entitic vol] 86.2 fL 80.0 - 98.0 fL [facility] Platelet mean volume (Bld) [Entitic vol] 6.5 fL Low 7.4 - 12.4 fL [facility] Platelets (Bld) [#/Vol] 97 10*3/uL Low 140 - 440 10*3/uL [facility] RBC (Bld) [#/Vol] 4.57 10*6/uL 4.40 - 5.90 10*6/uL [facility] WBC (Bld) [#/Vol] 6.8 10*3/uL 3.6 - 10.7 10*3/uL [facility] CT Abdomen WO contraston 1. No acute finding. Status post sleeve gastrectomy. Report Dictated on Electronically Signed By: Bakari Rivera Electronically Signed Date/Time: 06/09/2022 11:47 PM EST [facility] Patient Name: SOPHIE HICKS : 1965 Exam Date/Time: 06/09/2022 23:41 Procedure: CT ABDOMEN PELVIS WO IV CONTRAST Ordering Provider: BECERRIL JULIANNE Reason For Exam: right sided flank pain radiating into abdomen CT ABDOMEN AND PELVIS WITHOUT CONTRAST CLINICAL INDICATION: right sided flank pain radiating into abdomen TECHNIQUE: CT scan of the abdomen and pelvis without IV/oral contrast. Multiplanar reformations. Dose reduction was employed with automated exposure control. COMPARISON: 12/17/2021 FINDINGS: Solid organ evaluation limited from lack of IV contrast. Lung bases are clear. No free intraperitoneal gas seen. Liver shows no significant abnormality. Gallbladder and biliary tree appear normal. Status post sleeve gastrectomy. Spleen shows no significant abnormality. Adrenal glands show no significant abnormality. Kidneys show no significant abnormality. Pancreas shows no significant abnormality. Abdominal aorta is nonaneurysmal. No ureteral calculus seen on either side. No bowel obstruction. Several prostatic calcifications noted. Appendix is not seen. [facility] Bakari Rivera MD - 06/09/2022 Patient Name: SOPHIE HICKS : 1965 Exam Date/Time: 06/09/2022 23:41 Procedure: CT ABDOMEN PELVIS WO IV CONTRAST Ordering Provider: BECERRIL JULIANNE Reason For Exam: right sided flank pain radiating into abdomen CT ABDOMEN AND PELVIS WITHOUT CONTRAST CLINICAL INDICATION: right sided flank pain radiating into abdomen TECHNIQUE: CT scan of the abdomen and pelvis without IV/oral contrast. Multiplanar reformations. Dose reduction was employed with automated exposure control. COMPARISON: 12/17/2021 FINDINGS: Solid organ evaluation limited from lack of IV contrast. Lung bases are clear. No free intraperitoneal gas seen. Liver shows no significant abnormality. Gallbladder and biliary tree appear normal. Status post sleeve gastrectomy. Spleen shows no significant abnormality. Adrenal glands show no significant abnormality. Kidneys show no significant abnormality. Pancreas shows no significant abnormality. Abdominal aorta is nonaneurysmal. No ureteral calculus seen on either side. No bowel obstruction. Several prostatic calcifications noted. Appendix is not seen. IMPRESSION: 1. No acute finding. Status post sleeve gastrectomy. Report Dictated on Electronically Signed By: Bakari Rivera Electronically Signed Date/Time: 06/09/2022 11:47 PM EST [facility] Radiology Study observation (narrative) [facility] CT Abdomen WO contrastOrdere d By: Bakari Rivera on 06-09-2022 [facility] Work Phone: Urinalysis complete panel (U )Ordered By: Luci Evans on 06-09-2022 Bacteria LM.HPF (Urine sed) [#/Area] Negative Negative /HPF [facility] Bilirubin Ql (U) Negative Negative mg/dL [facility] Clarity (U) Clear Clear [facility] Color (U) Yellow Lt. Yellow [facility] Epithelial cells.squamous LM.HPF (Urine sed) [#/Area] 0-2 [facility] Glucose Ql (U) Normal Normal (<70) mg/dL [facility] Hemoglobin Ql (U) Negative Negative mg/dL [facility] Interpretation and review of laboratory results Abnormal [facility] Ketones (U) [Mass/Vol] Negative Negat emelia mg/dL [facility] Leukocyte esterase Test stri p Ql (U) Negative Negative Caprice/uL [facility] Mucus LM.HPF (Urine sed) [#/Area] Few Negative /LPF [facility] Nitrite Ql (U) Negative Negative [facility] th pH (U) 5.5 [pH] 5.0 - 8.0 pH [facility] Protein (U) [Mass/Vol] 20 mg/dL Abnormal Negative [facility] RBC LM.HPF (Urine sed) [#/Area] 0-2 [facility] Specific gravity (U) [Rel density] 1.023 1.005 - 1.030 [facility] Urobilinogen (U) [Mass/Vol] Normal Normal (0-1) mg/dL [facility] WBC LM.HPF (Urine sed) [#/Area] 6-10 Abnormal [facility] Basic Metabolic Panelon 09-0 Anion gap [Moles/Vol] 7 mmol/L Normal 3-13 [facility] Comment on above: Performed By: #### M G3, HEMDF, BMP3M, PHOS3 #### [facility] [address] [place], [place] Calcium [Mass/Vol] 8.3 mg/dL Low 8.4-10.4 [facility] Comment on above: Performed By: #### M G3, HEMDF, BMP3M, PHOS3 #### [facility] [address] [place], [place] CO2 [Moles/Vol] 27 mmol/L Normal 22-30 [facility] Comment on above: Performed By: #### M G3, HEMDF, BMP3M, PHOS3 #### [place] [address] [address] [place], [place] Glucose [Mass/Vol] 93 mg/dL Normal 70-100 [facility] Comment on above: Performed By: #### M G3, HEMDF, BMP3M, PHOS3 #### [place] [address] [address], [place] Urea nitrogen [Mass/Vol] 14 mg/dL Normal 7-17 [facility] Comment on above: Performed By: #### M G3, HEMDF, BMP3M, PHOS3 #### [place] [address] [address], [place] Creatinine [Mass/Vol] 1.38 mg/dL High 0.52-1.25 [facility] Comment on above: Performed By: #### M G3, HEMDF, BMP3M, PHOS3 #### [place] [address] [address], [place] GFR/1.73 sq M.predicted ramona g blacks MDRD (S/P/Bld) [Vol rate/Area] 64.8 mL/min/{1.73_m2} Normal >60 [facility] Comment on above: Performed By: #### M G3, HEMDF, BMP3M, PHOS3 #### [place] [address] [address], [place] GFR/1.73 sq M.predicted ramona g non-blacks MDRD (S/P/Bld) [Vol rate/Area] 55.9 mL/min/{1.73_m2} Abnormal >60 [facility] Comment on above: Result Comment: KDIG O guidelines provide the following GFR categories: Stage GFR(ml/min/1.73 m2) Terms G1 >=90 Normal or high G2 60-89 Mildly decreased* G3a 45-59 Mildly to moderately decreased G3b 30-44 Moderately to severely decreased G4 15-29 Severely decreased G5 <15 Kidney failure *Relative to young adult level. In the absence of evidence of kidney damage, neither GFR category G1 nor G2 fulfill the criteria for CKD. The CKD-EPI equation is validated in individuals 18 years of age and older. Currently the best equation for estimating glomerular filtration rate (GFR) from serum creatinine in children is the Bedside Oleary equation. It is less accurate in patients with extremes of muscle mass, restriction of dietary protein, ingestion of creatine, extra-renal metabolism of creatinine, or treatment with medications that affect renal tubular creatinine secretion. Performed By: #### M G3, HEMDF, BMP3M, PHOS3 #### [address] Potassium [Moles/Vol] 3.5 mmol/L Normal 3.5-5.1 [facility] Comment on above: Result Comment: Slig htly hemolysed, interpret with caution. Performed By: #### M G3, HEMDF, BMP3M, PHOS3 #### [address] Sodium [Moles/Vol] 138 mmol/L Normal 135-145 [facility] Comment on above: Performed By: #### M G3, HEMDF, BMP3M, PHOS3 #### [place] [address] [place], [place] Chloride [Moles/Vol] 104 mmol/L Normal 98-107 [facility] Comment on above: Performed By: #### M G3, HEMDF, BMP3M, PHOS3 #### [address] Basic Metabolic Panel w/ Ref branden to MGon 12-19-2021 Anion gap [Moles/Vol] 7 mmol/L 3 - 13 mmol/L [facility] Calcium [Mass/Vol] 8.3 mg/dL Low 8.4 - 10. 4 mg/dL [facility] Chloride [Moles/Vol] 104 mmol/L 98 - 10 7 mmol/L [facility] CO2 [Moles/Vol] 27 mmol/L 22 - 30 mmol/L [facility] Creatinine [Mass/Vol] 1.38 mg/dL High 0.52 - 1.25 mg/dL [facility] EGFR IF NonAfrican [place] 55.9 mL/min Abnormal 60 - PINF mL/min [facility] Comment on above: KDIGO guidelines pro vide the following GFR categories: Stage GFR(ml/min/1.73 m2) Terms G1 >=90 Normal or high G2 60-89 Mildly decreased* G3a 45-59 Mildly to moderately decreased G3b 30-44 Moderately to severely decreased G4 15-29 Severely decreased G5 <15 Kidney failure *Relative to young adult level. In the absence of evidence of kidney damage, neither GFR category G1 nor G2 fulfill the criteria for CKD. The CKD-EPI equation is validated in individuals 18 years of age and older. Currently the best equation for estimating glomerular filtration rate (GFR) from serum creatinine in children is the Bedside Oleary equation. It is less accurate in patients with extremes of muscle mass, restriction of dietary protein, ingestion of creatine, extra-renal metabolism of creatinine, or treatment with medications that affect renal tubular creatinine secretion. GFR/1.73 sq M.predicted ramona g blacks MDRD (S/P/Bld) [Vol rate/Area] 64.8 mL/min/{1.73_m2} 60 - PINF mL/min [facility] Glucose [Mass/Vol] 93 mg/dL 70 - 100 mg/dL [facility] Interpretation and review of laboratory results Abnormal [facility] Potassium [Moles/Vol] 3.5 mmol/L 3.5 - 5.1 mmol/L [facility] Comment on above: Slightly hemolysed, interpret with caution. Sodium [Moles/Vol] 138 mmol/L 135 - 145 mmol/L [facility] Urea nitrogen (BldV) [Mass/Vol] 14 mg/dL 7 - 17 mg/dL [facility] CBC auto differentialon Absolute Baso # 0.0 10*3/uL 0 - 0.2 10*3/uL [facility] Absolute Neut # 3.4 10*3/uL 1.8 - 7 10*3/uL [facility] Basophils/100 WBC (Bld) 0.5 % 0 - 2 % S [facility] Eosinophils (Bld) [#/Vol] 0.2 10*3/uL 0 - 0.5 10*3/uL [facility] Eosinophils/100 WBC (Bld) 3.1 % 1 - 6 % [facility] Granulocytes/100 WBC (Bld) 64.2 % 40 - 80 % [facility] Hematocrit (Bld) [Volume fraction] 40.9 % 40 - 52 % [facility] Hemoglobin (Bld) [Mass/Vol] 13.6 g/dL 13 - 18 g/dL [facility] Interpretation and review of laboratory results Abnormal [facility] Lymphocytes (Bld) [#/Vol] 1.2 10*3/uL 1 - 4.3 10*3/uL [facility] Lymphocytes/100 WBC (Bld) 22.8 % 20 - 40 % [facility] MCH (RBC) [Entitic mass] 27.9 pg 26 - 34 pg [facility] MCHC (RBC) [Mass/Vol] 33.3 % 32 - 36 % [facility] MCV (RBC) [Entitic vol] 83.6 fL 80 - 98 fL S [facility] Monocytes (Bld) [#/Vol] 0.5 10*3/uL 0 - 0.8 10*3/uL [facility] Monocytes/100 WBC (Bld) 9.4 % 2 - 10 % S [facility] Platelet distribution width (Bld) [Ratio] 15.6 % High 11.5 - 14.5 % [facility] Platelet mean volume (Bld) [Entitic vol] 6.6 fL Low 7.4 - 12.4 fL [facility] Comment on above: MPV is a calculated measurement using platelet volume ratio. Platelets (Bld) [#/Vol] 107 10*3/uL Low 140 - 440 10*3/uL [facility] RBC (Bld) [#/Vol] 4.89 10*6/uL 4.4 - 5.9 10*6/uL [facility] WBC (Bld) [#/Vol] 5.3 10*3/uL 3.6 - 10.7 10*3/uL [facility] Test Performed by [employer] [facility], [address] [place] [id number] [facility] Hemogram w/ Autodiffon 12-19 Platelet mean volume (Bld) [Entitic vol] 6.6 fL Low 7.4-12.4 [facility] Comment on above: Result Comment: MPV is a calculated measurement using platelet volume ratio. Performed By: #### M G3, HEMDF, BMP3M, PHOS3 #### [facility] [address] [place], [place] Platelets (Bld) [#/Vol] 107 10*3/uL Low 140-440 [facility] Comment on above: Performed By: #### M G3, HEMDF, BMP3M, PHOS3 #### [facility] [address], [place] Abs Baso Cnt 0.0 10*3/uL Normal 0.0-0.2 [facility] Comment on above: Performed By: #### M G3, HEMDF, BMP3M, PHOS3 #### [place] [address] [address], [place] Abs Neutrophile Cnt 3.4 10*3/uL Normal 1.8-7.0 [facility] Comment on above: Performed By: #### M G3, HEMDF, BMP3M, PHOS3 #### [place] [address] [address], [place] Basophils/100 WBC (Bld) 0.5 % Normal 0.0-2.0 [facility] Comment on above: Performed By: #### M G3, HEMDF, BMP3M, PHOS3 #### [place] [address] [address], [place] Eosinophils (Bld) [#/Vol] 0.2 10*3/uL Normal 0.0-0.5 [facility] Comment on above: Performed By: #### M G3, HEMDF, BMP3M, PHOS3 #### [place] [address] [address], [place] Eosinophils/100 WBC (Bld) 3.1 % Normal 1.0-6.0 [facility] Comment on above: Performed By: #### M G3, HEMDF, BMP3M, PHOS3 #### [place] [address] [address], [place] Erythrocyte distribution width (RBC) [Ratio] 15.6 % High 11.5-14.5 [facility] Comment on above: Performed By: #### M G3, HEMDF, BMP3M, PHOS3 #### [place] [address] [address], [place] Granulocytes/100 WBC (Bld) 64.2 % Normal 40.0-80.0 [facility] Comment on above: Performed By: #### M G3, HEMDF, BMP3M, PHOS3 #### [place] [address] [address], [place] Hematocrit (Bld) [Volume fraction] 40.9 % Normal 40.0-52.0 [facility] Comment on above: Performed By: #### M G3, HEMDF, BMP3M, PHOS3 #### [place] [address] [address], [place] Hemoglobin (Bld) [Mass/Vol] 13.6 g/dL Normal 13.0-18. 0 [facility] Comment on above: Performed By: #### M G3, HEMDF, BMP3M, PHOS3 #### [place] [address] [address], [place] Lymphocytes (Bld) [#/Vol] 1.2 10*3/uL Normal 1.0-4.3 [facility] Comment on above: Performed By: #### M G3, HEMDF, BMP3M, PHOS3 #### [place] [address] [address], [place] Lymphocytes/100 WBC (Bld) 22.8 % Normal 20.0-40.0 [facility] Comment on above: Performed By: #### M G3, HEMDF, BMP3M, PHOS3 #### [place] [address] [address] [place], [place] MCH (RBC) [Entitic mass] 27.9 pg Normal 26.0-34.0 [facility] Comment on above: Performed By: #### M G3, HEMDF, BMP3M, PHOS3 #### [place] [address] [address] [place], [place] MCHC 33.3 % Normal 32.0-36.0 [facility] Comment on above: Performed By: #### M G3, HEMDF, BMP3M, PHOS3 #### [place] [address] [place], [place] MCV (RBC) [Entitic vol] 83.6 fL Normal 80.0-98.0 S [facility] Comment on above: Performed By: #### M G3, HEMDF, BMP3M, PHOS3 #### [place] [address] [place], [place] Monocytes (Bld) [#/Vol] 0.5 10*3/uL Normal 0.0-0.8 [facility] Comment on above: Performed By: #### M G3, HEMDF, BMP3M, PHOS3 #### [address] Monocytes/100 WBC (Bld) 9.4 % Normal 2.0-10.0 S [facility] Comment on above: Performed By: #### M G3, HEMDF, BMP3M, PHOS3 #### [place] [address] [place], [place] RBC (Bld) [#/Vol] 4.89 10*6/uL Normal 4.40-5.90 [facility] Comment on above: Performed By: #### M G3, HEMDF, BMP3M, PHOS3 #### [address] WBC (Bld) [#/Vol] 5.3 10*3/uL Normal 3.6-10.7 [facility] Comment on above: Performed By: #### M G3, HEMDF, BMP3M, PHOS3 #### [address] Magnesiumon 12-19-2021 Magnesium [Mass/Vol] 1.9 mg/dL Normal 1.6-2.3 [facility] Comment on above: Result Comment: Slig htly hemolysed, interpret with caution. Performed By: #### M G3, HEMDF, BMP3M, PHOS3 #### [address] Magnesium [Mass/Vol] 1.9 mg/dL 1.6 - 2 .3 mg/dL [facility] Comment on above: Slightly hemolysed, interpret with caution. No Panel Informationon 12-19 Test Performed by [address] [address] [facility] Phosphoruson 12-19-2021 Phosphate [Mass/Vol] 4.1 mg/dL Normal 2.5-4.5 [facility] Comment on above: Result Comment: Slig htly hemolysed, interpret with caution. Performed By: #### M G3, HEMDF, BMP3M, PHOS3 #### [address] Phosphate [Mass/Vol] 4.1 mg/dL 2.5 - 4 .5 mg/dL [facility] Comment on above: Slightly hemolysed, interpret with caution. Potassiumon 12-19-2021 Potassium [Moles/Vol] 3.4 mmol/L Low 3.5-5.1 [facility] Comment on above: Performed By: #### K 3 #### [address] Interpretation and review of laboratory results Abnormal [facility] Work Phone: Potassium [Moles/Vol] 3.4 mmol/L Low 3.5 - 5.1 mmol/L [facility] Work Phone: Test Performed by [address] [address] [facility] Work Phone: Complete Urinalysison 2021 Appearance (U) Clear Normal Clear [facility] Comment on above: Result Comment: . Performed By: #### C UA2 #### [address] Bacteria LM.HPF (Urine sed) [#/Area] Negative Normal Negative [facility] Comment on above: Result Comment: . Performed By: #### C UA2 #### [address], [place] Bilirubin,Urine Negative Normal Negative [facility] Comment on above: Result Comment: . Performed By: #### C UA2 #### [facility] [address], [place] Cast, Hyaline Negative Normal Negative [facility] Comment on above: Result Comment: . Performed By: #### C UA2 #### [facility] [address] [place], [place] Color (U) Yellow Normal Lt. Yellow [facility] Comment on above: Result Comment: . Performed By: #### C UA2 #### [place] [address] [address] [place], [place] Glucose Ql (U) Normal Normal Normal (<70) [facility] Comment on above: Result Comment: . Performed By: #### C UA2 #### [place] [address] [address] [place], [place] Ketone,Urine Negative Normal Negative [facility] Comment on above: Result Comment: . Performed By: #### C UA2 #### [place] [address] [address] [place], [place] Leukocytes,Urine Negative Normal Negative [facility] Comment on above: Result Comment: . Performed By: #### C UA2 #### [place] [address] [address] [place], [place] Mucous Threads Few Normal Negative [facility] Comment on above: Result Comment: . Performed By: #### C UA2 #### [place] [address] [address] [place], [place] Nitrites,Urine Negative Normal Negative [facility] Comment on above: Result Comment: . Performed By: #### C UA2 #### [place] [address] [address] [place], [place] Occult Blood,Urine Negative Normal Negative [facility] Comment on above: Result Comment: . Performed By: #### C UA2 #### [place] [address] [address] [place], [place] pH,Urine 6.0 Normal 5.0-8.0 [facility] Comment on above: Result Comment: . Performed By: #### C UA2 #### [facility] [address] [place], [place] Protein (U) [Mass/Vol] 50 mg/dL Abnormal Negative [facility] Comment on above: Result Comment: . Performed By: #### C UA2 #### [facility] [address] [place], [place] RBC, Urine 0 - 2 Normal 0-2 [facility] Comment on above: Result Comment: . Performed By: #### C UA2 #### [facility] [address] [place], [place] Specific [place],Urine 1.026 Normal 1.005 - 1.030 [facility] Comment on above: Result Comment: . Performed By: #### C UA2 #### [facility] [address] [place], [place] Squamous Epithelial 0 - 2 Normal 3-5 [facility] Comment on above: Result Comment: . Performed By: #### C UA2 #### [facility] [address] [place], [place] Urobilinogen,Urine Normal Normal Normal (0-1) [facility] Comment on above: Result Comment: . Performed By: #### C UA2 #### [facility] [address] [place], [place] WBC, Urine 3 - 5 Normal 0-5 [facility] Comment on above: Result Comment: . Performed By: #### C UA2 #### [facility] [address], [place] EKG 12 Lead - Chest Painon 0 12-18-2021 [facility] Test Date: 2021-12-17 Pat Name: SOPHIE HICKS Department: [facility] Room: [facility] Gender: M 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: ANTONI : 1965 Requested By: DALLAS TABARES Order Number: [id number] Remy MD: Josr Mario Measurements Intervals [place] Rate: 69 P: 24 IN: 197 QRS: 53 QRSD: 92 T: 53 QT: 385 QTc: 413 Interpretive Statements Sinus rhythm Compared 12/04/21- no significant change Electronically Signed On 12-18-2021 1:06:21 EDT by Josr Mario [facility] Josr Mario MD - 12/18/2021 [facility] Date: 2021-12-17 Pat Name: SOPHIE HICKS Department: [facility] Room: [facility] Gender: M 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: : 1965 Requested By: DALLAS TABARES Order Number: [id number] Reading MD: Josr Mario Measurements Intervals [place] Rate: 69 P: 24 IN: 197 QRS: 53 QRSD: 92 T: 53 QT: 385 QTc: 413 Interpretive Statements Sinus rhythm Compared 12/04/21- no significant change Electronically Signed On 12-18-2021 1:06:21 EDT by Josr Mario [facility] Work Phone: EKG 12 Lead - Chest PainOrde red By: Josr Mario on 12-18-2021 [facility] Work Phone: NM LUNG VENT/PERFUSION (VQ)o n 12-18-2021 Patient Name: SOPHIE HICKS Nuclear Medicine ACCESSION EXAM DATE/TIME PROCEDURE ORDERING PROVIDER [id number] 12/18/2021 09:08 EDT NM Pulmonary Perfusion SRINATH KITCHEN JOHN M w/ Vent Aerosol CPT code 71318 A9567 Reason For Exam (NM Pulmonary Perfusion w/ Vent Aerosol) elevated D dimer, mild SOB and CP Report Study: VQ scan. CLINICAL INDICATION: Short of breath. Elevated d-dimer.. Dose: Less than 2 mCi tc-99m DTPA, 5.0 mCi tc-99m MAA TECHNIQUE: Planar imaging of the chest performed in multiple projections after ventilation agent and subsequently after perfusion agent administered. Comparison: Chest x-ray Chest x-ray 12/04/2021. Findings: Routine imaging was performed and viewed on a computer workstation. There are no unmatched segmental perfusion abnormalities. Matched regional findings are present. Impression: Low likelihood ratio for pulmonary embolism. Report Dictated on --- Final --- Dictated: 12/18/2021 11:16 am Dictating Physician: MD DYE JOHN Signed Date and Time: 12/18/2021 11:18 am Signed by: MD DYE JOHN Transcribed Date and Time: 12/18/2021 11:16 [facility] Bakari Dalton MD - 12/18/2021 Patient Name: SOPHIE HICKS Nuclear Medicine ACCESSION EXAM DATE/TIME PROCEDURE ORDERING PROVIDER [id number] 12/18/2021 09:08 EDT NM Pulmonary Perfusion SRINATH KITCHEN, BAKARI Guevara w/ Vent Aerosol CPT code 75067 A9567 Reason For Exam (NM Pulmonary Perfusion w/ Vent Aerosol) elevated D dimer, mild SOB and CP Report Study: VQ scan. CLINICAL INDICATION: Short of breath. Elevated d-dimer.. Dose: Less than 2 mCi tc-99m DTPA, 5.0 mCi tc-99m MAA TECHNIQUE: Planar imaging of the chest performed in multiple projections after ventilation agent and subsequently after perfusion agent administered. Comparison: Chest x-ray Chest x-ray 12/04/2021. Findings: Routine imaging was performed and viewed on a computer workstation. There are no unmatched segmental perfusion abnormalities. Matched regional findings are present. Impression: Low likelihood ratio for pulmonary embolism. Report Dictated on --- Final --- Dictated: 12/18/2021 11:16 am Dictating Physician: MD DYE JOHN Signed Date and Time: 12/18/2021 11:18 am Signed by: MD DYE JOHN Transcribed Date and Time: 12/18/2021 11:16 [facility] Work Phone: Radiology Study observation (narrative) [facility] Work Phone: NM LUNG VENT/PERFUSION (VQ)O rdered By: Bakari Dye on 12-18-2021 [facility] Work Phone: NM Pulmonary Perfusion w/ Ve nt Aerosol or Gason 12-18-2021 NM Pulmonary Perfusion w/ Vent Aerosol or Gas Patient Name: SOPHIE HICKS Nuclear Medicine ACCESSION EXAM DATE/TIME PROCEDURE ORDERING PROVIDER [id number] 12/18/2021 09:08 EDT NM Pulmonary Perfusion SRINATH KITCHEN, BAKARI Guevara w/ Vent Aerosol CPT code 62158 A9567 Reason For Exam (NM Pulmonary Perfusion w/ Vent Aerosol) elevated D dimer, mild SOB and CP Report Study: VQ scan. CLINICAL INDICATION: Short of breath. Elevated d-dimer.. Dose: Less than 2 mCi tc-99m DTPA, 5.0 mCi tc-99m MAA TECHNIQUE: Planar imaging of the chest performed in multiple projections after ventilation agent and subsequently after perfusion agent administered. Comparison: Chest x-ray Chest x-ray 12/04/2021. Findings: Routine imaging was performed and viewed on a computer workstation. There are no unmatched segmental perfusion abnormalities. Matched regional findings are present. Impression: Low likelihood ratio for pulmonary embolism. Report Dictated on Final Dictated: 12/18/2021 11:16 am Dictating Physician: MD DYE JOHN Signed Date and Time: 12/18/2021 11:18 am Signed by: MD DYE JOHN Transcribed Date and Time: 12/18/2021 11:16 Normal [facility] CBC with Auto Differentialon 12-17-2021 Absolute Baso # 0.1 10*3/uL 0 - 0.2 10*3/uL [facility] Absolute Neut # 4.8 10*3/uL 1.8 - 7 10*3/uL [facility] Basophils/100 WBC (Bld) 0.8 % 0 - 2 % S [facility] Eosinophils (Bld) [#/Vol] 0.2 10*3/uL 0 - 0.5 10*3/uL [facility] Eosinophils/100 WBC (Bld) 2.9 % 1 - 6 % [facility] Granulocytes/100 WBC (Bld) 68.3 % 40 - 80 % [facility] Hematocrit (Bld) [Volume fraction] 41.0 % 40 - 52 % [facility] Hemoglobin (Bld) [Mass/Vol] 13.7 g/dL 13 - 18 g/dL [facility] Interpretation and review of laboratory results Abnormal [facility] Lymphocytes (Bld) [#/Vol] 1.5 10*3/uL 1 - 4.3 10*3/uL [facility] Lymphocytes/100 WBC (Bld) 22.0 % 20 - 40 % [facility] MCH (RBC) [Entitic mass] 27.9 pg 26 - 34 pg [facility] MCHC (RBC) [Mass/Vol] 33.4 % 32 - 36 % [facility] MCV (RBC) [Entitic vol] 83.6 fL 80 - 98 fL S [facility] Monocytes (Bld) [#/Vol] 0.4 10*3/uL 0 - 0.8 10*3/uL [facility] Monocytes/100 WBC (Bld) 6.0 % 2 - 10 % [facility] Platelet distribution width (Bld) [Ratio] 15.4 % High 11.5 - 14.5 % [facility] Platelet mean volume (Bld) [Entitic vol] 7.9 fL 7.4 - 12.4 fL [facility] Comment on above: MPV is a calculated measurement using platelet volume ratio. Platelets (Bld) [#/Vol] 142 10*3/uL 140 - 440 10*3/uL [facility] RBC (Bld) [#/Vol] 4.90 10*6/uL 4.4 - 5.9 10*6/uL [facility] WBC (Bld) [#/Vol] 7.0 10*3/uL 3.6 - 10.7 10*3/uL [facility] Test Performed by [address] [facility] Abdomen Pelvis Wo Ryan farias 12-17-2021 [facility]: [id number] ACCESSION EXAM DATE/TIME PROCEDURE ORDERING PROVIDER [id number] 12/17/2021 15:[address] Abdomen/Pelvis (Amna TABARES MD, [place] PO, No IV) CPT code 62805 Reason For Exam (CT Abdomen/Pelvis (No PO, No IV)) Abdominal pain Report EXAMINATION: CT Abdomen/Pelvis w/o Contrast CLINICAL HISTORY: Abdominal pain COMPARISON: 06/15/2021, 11/01/2020. TECHNIQUE: Contiguous axial images of the abdomen without contrast were obtained from above the diaphragmatic domes to the iliac crests. MPR sagittal and coronal reconstructions were obtained from the axial data. FINDINGS: Limitations: Evaluation the hollow and solid viscera is partially limited by lack of intravenous or oral contrast administration. Included images of the lower thorax: There is minimal subsegmental right basilar atelectasis. No focal lung consolidation or pleural effusion. Hepatobiliary: The liver parenchyma has low attenuation consistent with hepatic steatosis. No focal suspicious hepatic lesion is present. There is no biliary dilatation. Pancreas: Unremarkable Spleen: Unremarkable Adrenal Glands: Unremarkable Kidneys and ureters: No calculi or hydroureteronephros is. Abdominal vasculature: Mild atherosclerotic wall calcifications are present without aneurysm. GI tract: There are postsurgical changes related to sleeve gastrectomy with surgical ana noted along the stomach. There is no evidence of obstruction. The appendix is not seen. Peritoneum and retroperitoneum: No free fluid or free air is noted. Lymph Nodes: No abdominal lymphadenopathy is evident. Pelvis: Multiple brachytherapy seeds are noted within the prostate, unchanged. Otherwise unremarkable. 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 No acute fracture or destructive osseous lesion is identified. There are mild degenerative changes of bilateral hips. Mild fat stranding is noted along the anterior lateral and central abdomen, likely related to prior port placements. No focal fluid collection is identified. Bilateral gynecomastia is present. Otherwise unremarkable. IMPRESSION: Within the limitations of lack of intravenous or oral contrast: 1. Postsurgical changes related to sleeve gastrectomy. No acute intra-abdominal or intrapelvic abnormality is identified. 2. Mild hepatic steatosis, similar to the prior. 3. Minimal right basilar subsegmental atelectasis. 4. Additional chronic and degenerative changes, as described above. Report Dictated on --- Final --- Dictated: 12/17/2021 3:39 pm Dictating Physician: MD OLEARY RYAN Signed Date and Time: 12/17/2021 3:58 pm Signed by: MD OLEARY RYAN Transcribed Date and Time: 12/17/2021 3:39 [facility] Antony Oleary MD - 12/17/2021 Patient Name: SOPHIE HICKS Computed Tomography ACCESSION EXAM DATE/TIME PROCEDURE ORDERING PROVIDER [id number] 12/17/2021 15:[address] Abdomen/Pelvis (No DIRANDO, MD, [place] PO, No IV) CPT code 90866 Reason For Exam (CT Abdomen/Pelvis (No PO, No IV)) Abdominal pain Report EXAMINATION: CT Abdomen/Pelvis w/o Contrast CLINICAL HISTORY: Abdominal pain COMPARISON: 06/15/2021, 11/01/2020. TECHNIQUE: Contiguous axial images of the abdomen without contrast were obtained from above the diaphragmatic domes to the iliac crests. MPR sagittal and coronal reconstructions were obtained from the axial data. FINDINGS: Limitations: Evaluation the hollow and solid viscera is partially limited by lack of intravenous or oral contrast administration. Included images of the lower thorax: There is minimal subsegmental right basilar atelectasis. No focal lung consolidation or pleural effusion. Hepatobiliary: The liver parenchyma has low attenuation consistent with hepatic steatosis. No focal suspicious hepatic lesion is present. There is no biliary dilatation. Pancreas: Unremarkable Spleen: Unremarkable Adrenal Glands: Unremarkable Kidneys and ureters: No calculi or hydroureteronephros is. Abdominal vasculature: Mild atherosclerotic wall calcifications are present without aneurysm. GI tract: There are postsurgical changes related to sleeve gastrectomy with surgical ana noted along the stomach. There is no evidence of obstruction. The appendix is not seen. Peritoneum and retroperitoneum: No free fluid or free air is noted. Lymph Nodes: No abdominal lymphadenopathy is evident. Pelvis: Multiple brachytherapy seeds are noted within the prostate, unchanged. Otherwise unremarkable. 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 No acute fracture or destructive osseous lesion is identified. There are mild degenerative changes of bilateral hips. Mild fat stranding is noted along the anterior lateral and central abdomen, likely related to prior port placements. No focal fluid collection is identified. Bilateral gynecomastia is present. Otherwise unremarkable. IMPRESSION: Within the limitations of lack of intravenous or oral contrast: 1. Postsurgical changes related to sleeve gastrectomy. No acute intra-abdominal or intrapelvic abnormality is identified. 2. Mild hepatic steatosis, similar to the prior. 3. Minimal right basilar subsegmental atelectasis. 4. Additional chronic and degenerative changes, as described above. Report Dictated on --- Final --- Dictated: 12/17/2021 3:39 pm Dictating Physician: MD WEI, ANTONY Signed Date and Time: 12/17/2021 3:58 pm Signed by: MD WEI, ANTONY Transcribed Date and Time: 12/17/2021 3:39 [facility] Work Phone: Radiology Study observation (narrative) [facility] Work Phone: CT Abdomen Pelvis Wo Contras tOrdered By: Antony Oleary on 12-17-2021 [facility] Work Phone: CT Abdomen/Pelvis w/o Contra ston 12-17-2021 CT Abdomen/Pelvis w/o Contrast Patient Name: SOPHIE HICKS Computed Tomography ACCESSION EXAM DATE/TIME PROCEDURE ORDERING PROVIDER [id number] 12/17/2021 15:[address] Abdomen/Pelvis (No MD SAMIR, [place] PO, No IV) CPT code 62214 Reason For Exam (CT Abdomen/Pelvis (No PO, No IV)) Abdominal pain Report EXAMINATION: CT Abdomen/Pelvis w/o Contrast CLINICAL HISTORY: Abdominal pain COMPARISON: 06/15/2021, 11/01/2020. TECHNIQUE: Contiguous axial images of the abdomen without contrast were obtained from above the diaphragmatic domes to the iliac crests. MPR sagittal and coronal reconstructions were obtained from the axial data. FINDINGS: Limitations: Evaluation the hollow and solid viscera is partially limited by lack of intravenous or oral contrast administration. Included images of the lower thorax: There is minimal subsegmental right basilar atelectasis. No focal lung consolidation or pleural effusion. Hepatobiliary: The liver parenchyma has low attenuation consistent with hepatic steatosis. No focal suspicious hepatic lesion is present. There is no biliary dilatation. Pancreas: Unremarkable Spleen: Unremarkable Adrenal Glands: Unremarkable Kidneys and ureters: No calculi or hydroureteronephros is. Abdominal vasculature: Mild atherosclerotic wall calcifications are present without aneurysm. GI tract: There are postsurgical changes related to sleeve gastrectomy with surgical ana noted along the stomach. There is no evidence of obstruction. The appendix is not seen. Peritoneum and retroperitoneum: No free fluid or free air is noted. Lymph Nodes: No abdominal lymphadenopathy is evident. Pelvis: Multiple brachytherapy seeds are noted within the prostate, unchanged. Otherwise unremarkable. 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 No acute fracture or destructive osseous lesion is identified. There are mild degenerative changes of bilateral hips. Mild fat stranding is noted along the anterior lateral and central abdomen, likely related to prior port placements. No focal fluid collection is identified. Bilateral gynecomastia is present. Otherwise unremarkable. IMPRESSION: Within the limitations of lack of intravenous or oral contrast: 1. Postsurgical changes related to sleeve gastrectomy. No acute intra-abdominal or intrapelvic abnormality is identified. 2. Mild hepatic steatosis, similar to the prior. 3. Minimal right basilar subsegmental atelectasis. 4. Additional chronic and degenerative changes, as described above. Report Dictated on Final Dictated: 12/17/2021 3:39 pm Dictating Physician: MD OLEARY RYAN Signed Date and Time: 12/17/2021 3:58 pm Signed by: MD OLEARY RYAN Transcribed Date and Time: 12/17/2021 3:39 Normal [facility] Comp Metabolic Panelon 12-17 ALT [Catalytic activity/Vol] 44 U/L Normal 0-49 [facility] Comment on above: Result Comment: The ALT test is performed by an updated assay method. Please note that the reference intervals have been changed and are now sex specific. Performed By: #### M G3, HEMDF, BMP3M, PHOS3 #### [facility] [address] [place] [address] Calcium [Mass/Vol] 9.1 mg/dL Normal 8.4-10.4 [facility] Comment on above: Performed By: #### M G3, HEMDF, BMP3M, PHOS3 #### [facility] [address] [place] [address] Glucose [Mass/Vol] 93 mg/dL Normal 70-100 [facility] Comment on above: Performed By: #### M G3, HEMDF, BMP3M, PHOS3 #### [facility] [address] [place] [address] ALP [Catalytic activity/Vol] 58 U/L Normal 38-126 [facility] Comment on above: Result Comment: Slig htly hemolysed, interpret with caution. Performed By: #### M G3, HEMDF, BMP3M, PHOS3 #### [facility] [address] [place], [place] Anion gap [Moles/Vol] 6 mmol/L Normal 3-13 [facility] Comment on above: Performed By: #### M G3, HEMDF, BMP3M, PHOS3 #### [facility] [address] [place], [place] AST [Catalytic activity/Vol] 64 U/L High 15-46 [facility] Comment on above: Result Comment: Slig htly hemolysed, interpret with caution. Performed By: #### M G3, HEMDF, BMP3M, PHOS3 #### [place] [address] [address] [place], [place] Bilirubin [Mass/Vol] 0.9 mg/dL Normal 0.2-1.3 [facility] Comment on above: Performed By: #### M G3, HEMDF, BMP3M, PHOS3 #### [place] [address] [address] [place], [place] CO2 [Moles/Vol] 27 mmol/L Normal 22-30 [facility] Comment on above: Performed By: #### M G3, HEMDF, BMP3M, PHOS3 #### [place] [address] [address] [place], [place] Creatinine [Mass/Vol] 1.28 mg/dL High 0.52-1.25 [facility] Comment on above: Performed By: #### M G3, HEMDF, BMP3M, PHOS3 #### [place] [address] [address] [place], [place] GFR/1.73 sq M.predicted ramona g blacks MDRD (S/P/Bld) [Vol rate/Area] 70.9 mL/min/{1.73_m2} Normal >60 [facility] Comment on above: Performed By: #### M G3, HEMDF, BMP3M, PHOS3 #### [place] [address] [place] [address] GFR/1.73 sq M.predicted ramona g non-blacks MDRD (S/P/Bld) [Vol rate/Area] 61.2 mL/min/{1.73_m2} Normal >60 [facility] Comment on above: Result Comment: KDIG O guidelines provide the following GFR categories: Stage GFR(ml/min/1.73 m2) Terms G1 >=90 Normal or high G2 60-89 Mildly decreased* G3a 45-59 Mildly to moderately decreased G3b 30-44 Moderately to severely decreased G4 15-29 Severely decreased G5 <15 Kidney failure *Relative to young adult level. In the absence of evidence of kidney damage, neither GFR category G1 nor G2 fulfill the criteria for CKD. The CKD-EPI equation is validated in individuals 18 years of age and older. Currently the best equation for estimating glomerular filtration rate (GFR) from serum creatinine in children is the Bedside Oleary equation. It is less accurate in patients with extremes of muscle mass, restriction of dietary protein, ingestion of creatine, extra-renal metabolism of creatinine, or treatment with medications that affect renal tubular creatinine secretion. Performed By: #### M G3, HEMDF, BMP3M, PHOS3 #### [facility] [address] [place], [place] Protein [Mass/Vol] 7.2 g/dL Normal 6.3-8.2 [facility] Comment on above: Performed By: #### M G3, HEMDF, BMP3M, PHOS3 #### [place] [address] [place], [place] Urea nitrogen [Mass/Vol] 16 mg/dL Normal 7-17 [facility] Comment on above: Performed By: #### M G3, HEMDF, BMP3M, PHOS3 #### [facility] [address] [place] [address] Chloride [Moles/Vol] 108 mmol/L High 98-107 [facility] Comment on above: Performed By: #### M G3, HEMDF, BMP3M, PHOS3 #### [address] [address] [place], [place] Potassium [Moles/Vol] 4.4 mmol/L Normal 3.5-5.1 [facility] Comment on above: Result Comment: Slig htly hemolysed, interpret with caution. Performed By: #### M G3, HEMDF, BMP3M, PHOS3 #### [facility] [address] [place] [address] Sodium [Moles/Vol] 141 mmol/L Normal 135-145 [facility] Comment on above: Performed By: #### M G3, HEMDF, BMP3M, PHOS3 #### [facility] [address] [place] [address] Albumin [Mass/Vol] 4.0 g/dL Normal 3.5-5.0 [facility] Comment on above: Performed By: #### M G3, HEMDF, BMP3M, PHOS3 #### [facility] [address] [place] [address] Comprehensive Metabolic Pane tung 12-17-2021 Albumin [Mass/Vol] 4.0 g/dL 3.5 - 5 g/dL [facility] ALP (Bld) [Catalytic activity/Vol] 58 U/L 38 - 126 U/L [facility] Comment on above: Slightly hemolysed, interpret with caution. ALT [Catalytic activity/Vol] 44 U/L 0 - 49 U/L [facility] Comment on above: The ALT test is perf ormed by an updated assay method. Please note that the reference intervals have been changed and are now sex specific. Anion gap [Moles/Vol] 6 mmol/L 3 - 13 mmol/L [facility] AST [Catalytic activity/Vol] 64 U/L High 15 - 46 U/L [facility] Comment on above: Slightly hemolysed, interpret with caution. Bilirubin [Mass/Vol] 0.9 mg/dL 0.2 - 1 .3 mg/dL [facility] Calcium [Mass/Vol] 9.1 mg/dL 8.4 - 10. 4 mg/dL [facility] Chloride [Moles/Vol] 108 mmol/L High 98 - 10 7 mmol/L [facility] CO2 [Moles/Vol] 27 mmol/L 22 - 30 mmol/L [facility] Creatinine [Mass/Vol] 1.28 mg/dL High 0.52 - 1.25 mg/dL [facility] EGFR IF NonAfrican Omani 61.2 mL/min 60 - PINF mL/min [facility] Comment on above: KDIGO guidelines pro vide the following GFR categories: Stage GFR(ml/min/1.73 m2) Terms G1 >=90 Normal or high G2 60-89 Mildly decreased* G3a 45-59 Mildly to moderately decreased G3b 30-44 Moderately to severely decreased G4 15-29 Severely decreased G5 <15 Kidney failure *Relative to young adult level. In the absence of evidence of kidney damage, neither GFR category G1 nor G2 fulfill the criteria for CKD. The CKD-EPI equation is validated in individuals 18 years of age and older. Currently the best equation for estimating glomerular filtration rate (GFR) from serum creatinine in children is the Bedside Oleary equation. It is less accurate in patients with extremes of muscle mass, restriction of dietary protein, ingestion of creatine, extra-renal metabolism of creatinine, or treatment with medications that affect renal tubular creatinine secretion. Free PSA/Total PSA [Mass fraction] 7.2 g/dL 6.3 - 8.2 g/dL [facility] GFR/1.73 sq M.predicted ramona g blacks MDRD (S/P/Bld) [Vol rate/Area] 70.9 mL/min/{1.73_m2} 60 - PINF mL/min [facility] Glucose [Mass/Vol] 93 mg/dL 70 - 100 mg/dL [facility] Interpretation and review of laboratory results Abnormal [facility] Potassium [Moles/Vol] 4.4 mmol/L 3.5 - 5.1 mmol/L [facility] Comment on above: Slightly hemolysed, interpret with caution. Sodium [Moles/Vol] 141 mmol/L 135 - 145 mmol/L [facility] Urea nitrogen (BldV) [Mass/Vol] 16 mg/dL 7 - 17 mg/dL [facility] D-Dimer, Innovanceon 022 D-Dimer, Innovance 1.36 mg/L High <0.19-0.50 [facility] Comment on above: Result Comment: Inno paula D-Dimer values of <0.50 mg/L FEU can be used in combination with a pre-test probability model (e.g. Well's) to exclude pulmonary embolism (PE) disease, as well as an aid in the diagnosis of deep vein thrombosis (DVT). Performed By: #### L ACT3, CMP3, LIPA4, DDI2, TROPN, HEMDF #### [facility] [employer] [facility] [address] [place] [address] D-Dimer, Quantitativeon 09-0 D-Dimer, Quant 1.36 mg/L High <0.19 - 0.50 [facility] Comment on above: Innovance D-Dimer va lues of <0.50 mg/L FEU can be used in combination with a pre-test probability model (e.g. Well's) to exclude pulmonary embolism (PE) disease, as well as an aid in the diagnosis of deep vein thrombosis (DVT). Interpretation and review of laboratory results Abnormal [facility] Test Performed by [facility], [address] [place] [id number] [facility] ED Provider Noteon 2 ED Provider Note [facility] EMERGENCY DEPT EMERGENCY DEPARTMENT ENCOUNTER Pt Name: Sophie Hicks Birthdate 1965 Date of evaluation: 12/17/2021 Provider: YOU Nieves CHIEF COMPLAINT Chief Complaint Patient presents with Abdominal Pain Pain x 2 days. Gastric bypass 2 weeks ago. Blood with BM. SOB and difficulty with inspiration and expiration. HISTORY OF PRESENT ILLNESS (Location/Symptom, Timing/Onset, Context/Setting, Quality,Duration, Modifying Factors, Severity) Note limiting factors. HPI I have seen this patient With supervising physician Does this patient come from an ECF, SNF, Rehab, Nursing Home or other Congregate setting: no (If yes to above patient needs a Covid-19 test) Sophie Hicks is a 56 y.o. male who presents to the emergency department for chief complaint of having abdominal discomfort. He states the pain is within the abdomen more in the epigastric area and he feels of his abdomen is little more distended. Patient had a gastric bypass approximately 10 days ago. Patient states to having some shortness of breath chest pain which is a history of coronary artery disease. Patient states his abdominal pain is much worse in comparison to his discomfort that is in his chest. He states he is on Lovenox for 20 days postoperatively. Patient thinks he has a history of either DVT or pulmonary embolism but is not sure. He has no vomiting or diarrhea at this time. Patient has no other complaints REVIEW OF SYSTEMS (2+ for level 4; 10+ for level 5) Review of Systems Constitutional: Negative for chills, fatigue and fever. HENT: Negative for congestion, sinus pain, sore throat and voice change. Eyes: Negative. Respiratory: Negative for cough, shortness of breath and wheezing. Cardiovascular: Negative for chest pain, palpitations and leg swelling. Gastrointestinal: Positive for abdominal distention and abdominal pain. Negative for blood in stool, constipation, diarrhea, nausea and vomiting. Endocrine: Negative. Genitourinary: Negative for dysuria, frequency and hematuria. Musculoskeletal: Negative for arthralgias and neck stiffness. Skin: Negative for color change, pallor, rash and wound. Neurological: Negative for dizziness, weakness, light-headedness, numbness and headaches. Psychiatric/Behavio ral: Negative. PAST MEDICAL HISTORY Past Medical History: Diagnosis Date Abdominal pain Atrial fibrillation (HCC) Back pain Benign essential HTN 01/29/2015 Blood circulation, collateral CAD (coronary artery disease) mild - dx on cath - neg stress Cerebral artery occlusion with cerebral infarction (HCC) Chronic kidney disease COPD (chronic obstructive pulmonary disease) ([facility]) COVID-19 05/03 COVID-19 vaccine series completed 09/25/2020 Moderna COVID-19 vaccine series completed 12/04/2020 BOOSTER CS (cervical spondylosis) 12/25/2004 CERVICAL SPINE DJD Difficulty sleeping Dizziness GERD (gastroesophageal reflux disease) History of colonic polyps 06/21/2013 repeat 2019 Hyperlipidemia Insomnia 08/15/2014 Joint pain, hip Joint pain, knee Memory difficulties Muscle weakness Peripheral polyneuropathy 09/30/2020 Shortness of breath at rest Sleep apnea Snoring SOBOE (shortness of breath on exertion) Type 2 diabetes mellitus 03/19/2021 SURGICAL HISTORY Past Surgical History: Procedure Laterality Date APPENDECTOMY CARDIAC CATHETERIZATION 12/17/2013 NORMAL CORONARY ARTERIES AND LVEF. COLONOSCOPY 2020 CYSTOSCOPY 10/26/2020 CYSTOSCOPY 11/19/2020 ENDOSCOPY, COLON, DIAGNOSTIC NECK SURGERY Posterior cervical fusion ROTATOR CUFF REPAIR Bilateral SLEEVE GASTRECTOMY 12/03/2021 Dr. Trevino UPPER GASTROINTESTINAL ENDOSCOPY 01/24/2021 Dr. Cabello CURRENT MEDICATIONS Previous Medications ADVAIR DISKUS 250-50 MCG/ACT AEPB DISKUS INHALER Inhale 1 puff into the lungs 2 times daily ASPIRIN 81 MG CHEWABLE TABLET Take 81 mg by mouth daily ATORVASTATIN (LIPITOR) 80 MG TABLET Take 1 tablet by mouth nightly BACLOFEN (LIORESAL) 10 MG TABLET Take 10 mg by mouth 3 times daily prn BUPROPION (WELLBUTRIN SR) 150 MG EXTENDED RELEASE TABLET Take 150 mg by mouth 2 times daily CALCIUM CARBONATE (TUMS) 500 MG CHEWABLE TABLET Take 1 tablet by mouth 3 times daily CPAP MACHINE MISC 12 cm by Does not apply route at bedtime Indications: Obstructive Sleep Apnea Syndrome Pt owns CYANOCOBALAMIN (B-12) [address] 1 tablet under the tongue daily DICLOFENAC SODIUM (VOLTAREN) 1 % GEL daily as needed DICYCLOMINE (BENTYL) 10 MG CAPSULE Take 1 capsule by mouth 3 times daily (before meals) ENOXAPARIN (LOVENOX) 300 MG/3ML INJECTION Inject 40 mg into the skin 2 times daily ERGOCALCIFEROL (ERGOCALCIFEROL) 1.25 MG (63486 UT) CAPSULE Take 1 capsule by mouth once a week for [address] Vitamin Replacement Protocol FAMOTIDINE (PEPCID) 20 MG TABLET Take 1 tablet by mouth 2 times daily FUROSEMIDE (LASIX) 40 MG TABLET Take 80 mg by mouth 2 ti (more content not included)... Normal [facility] ED Provider Note Emergency Department Encounter [facility] EMERGENCY DEPT Patient: Sophie Hicks : 1965 Date of Evaluation: 12/17/2021 ED Supervising Physician: Julianne Welch MD I independently examined and evaluated Sophie Hicks. In brief, Sophie Hicks is a 56 y.o. male with a past medical history significant for hypertension, nephrotic syndrome, TIAs, and chronic back pain who is recently s/p gastric bypass surgery 2 weeks ago that presents to the emergency department for evaluation for abdominal pain. Patient states was doing well until a few days ago when he started having abdominal pain. He states in the last 2 days the pain has become increasingly worse. Patient also endorses bloody stools but states that these are improving. He states that the pain is so severe and is now accompanied by shortness of breath worse with inspiration. Patient states that he is also having intermittent chest pain. He denies fevers, chills, diaphoresis, palpitations, nausea, vomiting or urinary symptoms. Patient also denies bleeding or drainage from the incision sites. Focused exam: Blood pressure 118/63, pulse 65, temperature 98.1 ?F (36.7 ?C), temperature source Temporal, resp. rate 20, height 6' 1 (1.854 m), weight (!) 147.4 kg (325 lb), SpO2 99 %. [id number] in no acute distress. Alert and oriented X 3. Lungs clear to auscultation bilaterally with no wheezes or crackles appreciated. Heart rate and rhythm regular with no murmurs. Abdomen soft with tenderness to palpation in the midline around the periumbilical area, with positive bowel sounds. No edema appreciated on the lower extremities bilaterally. Patient with suicidal ideation with plan but no homicidal ideation. I performed a substantial portion of the visit including the MDM. Brief ED course/MDM: ED Course as of 12/18/21 0531 ThuDec 17, 2021 2333 EKG with sinus rhythm with a rate of 69. Patient with no ST elevations or depressions concerning for STEMI. EKG with normal axis. Intervals within normal limits. EKG unchanged from previous. EKG interpreted by myself. [PK] ED Course User Index [PK] Julianne Welch MD 50-year-old presenting for evaluation for abdominal pain with shortness of breath and chest pain. Presentation is concerning for postsurgical complications including PEs. Patient unlikely has a cardiac etiology of symptoms. Work-up in the department with EKG as noted above, no electrolyte abnormalities, stable CKD with a creatinine of 1.28, no leukocytosis, no anemia, no thrombocytosis, no lactic acidosis, negative troponin, and no UTI. Patient's D-dimer elevated at 1.36. Given patient is currently not short of breath and not hypoxic we will hold off on obtaining a CT PE and get a VQ scan in the morning. CT of the abdomen pelvis with no acute findings. Discussed lab and imaging results with the patient. Discussed with the patient we will consult surgery given patient is recently postop. Surgery consulted to evaluate the patient. They recommended admission to their service for VQ scan in the morning and observation. Discussed recommendations with patient. Discussed plan for admission. Patient verbalized understanding of information given and agreed to plan. Was admitted in stable condition. Critical care time was 35 minutes. All diagnostic, treatment, and disposition decisions were made by myself in conjunction with the COD[facility]. For all further details of the patient's emergency department visit, please see their documentation. This will serve as my [facility] Supervisory note and shared attestation. (Please note that portions of this note may have been completed with a voice recognition program. Efforts were made to edit the dictations but occasionally words are mis-transcribed.) Julianne Welch MD [employer] Julianne Welch MD 12/18/21 0532 [facility] ED Provider Note Emergency Department Encounter [facility] EMERGENCY DEPT Patient: Sophie Hicks : 1965 Date of Evaluation: 12/17/2021 ED Provider: DALLAS TABARES MD During my exam I wore PPE including N95, surgical mask, and goggles TRIAGE NOTE I saw the patient in triage to initiate preliminary assessment and orders. Please see other providers notations for clinical course, results, initial diagnostic impressions, and disposition. BRIEF HPI: In brief, Sophie Hicks is a 56 y.o. male that presents for evaluation of chest and abdominal pain. The patient is 10 days status post gastric bypass surgery is now complaining of chest discomfort with inspiration and expiration and some mild shortness of breath. Also complaining of abdominal pain and passage of some blood in his stool this morning. He is currently on Lovenox postoperatively for 20 days he states. He denies fever chills sweats no nausea or vomiting.. LIMITED PHYSICAL EXAM: ED Triage Vitals Enc Vitals Group BP 12/17/21 1410 103/76 Heart Rate 12/17/21 1410 71 Resp 12/17/21 1410 18 Temp 12/17/21 1410 98.1 ?F (36.7 ?C) Temp Source 12/17/21 1410 Temporal SpO2 12/17/21 1410 98 % Weight 12/17/21 1411 (!) 325 lb (147.4 kg) Height 12/17/21 1411 6' 1 (1.854 m) Head Circumference -- Peak Flow -- Pain Score -- Pain Loc -- Pain Edu? -- Excl. in GC? -- LUNGS: Breath sounds are equal, clear to auscultation, no wheeze retractions or cyanosis and no crackles present. HEART: Regular rate and rhythm no murmur or thrill or rub, strong heart tones ABDOMEN: Mild diffuse mid abdominal tenderness but no guarding rebound rigidity mass or aneurysm identified. EXTREMITIES: Pulses are present, cap refills less than 2 seconds, no edema, no palpable tenderness negative cords, no signs of deep vein thrombosis. No erythema or warmth, or redness, neurovascularly intact and normal. MEDICAL DECISION MAKING/INITIAL CLINICAL COURSE: I will initiate diagnostics/treatme nts as indicated. Clinically here he is not febrile septic toxic tachypneic or hypoxic. He is complaining of some pleuritic type chest pain he is status post gastric bypass surgery 10 days ago but is currently on Lovenox so that should put him at less risk for DVT/PE however its within the differential diagnosis, he states he cannot take IV contrast though because he has stage III kidney disease and does not want the contrast. We will get laboratory studies EKG and a troponin as well as a D-dimer to screen if the D-dimer is negative we do not really need to proceed at this point especially given the fact that he is on Lovenox as well. If the D-dimer is elevated further work-up may be required but by that time his GFR should be known as well. As far as his abdominal pain goes we will get a CT scan abdomen pelvis with oral contrast on hold off on the IV contrast as well for the above reasons.. Please see other providers notations for results, and final diagnosis and disposition. DALLAS TABARES MD [employer] Dallas Tabares MD 12/17/21 1437 Normal [facility] Hemogram w/ Autodiffon 12-17 Abs Baso Cnt 0.1 10*3/uL Normal 0.0-0.2 [facility] Comment on above: Performed By: #### M G3, HEMDF, BMP3M, PHOS3 #### [address] [address] Abs Neutrophile Cnt 4.8 10*3/uL Normal 1.8-7.0 [facility] Comment on above: Performed By: #### M G3, HEMDF, BMP3M, PHOS3 #### [facility] [address] [place] [address] Basophils/100 WBC (Bld) 0.8 % Normal 0.0-2.0 [facility] Comment on above: Performed By: #### M G3, HEMDF, BMP3M, PHOS3 #### [facility] [address] [place] [address] Eosinophils (Bld) [#/Vol] 0.2 10*3/uL Normal 0.0-0.5 [facility] Comment on above: Performed By: #### M G3, HEMDF, BMP3M, PHOS3 #### [address] [address] [address] [place], [place] Eosinophils/100 WBC (Bld) 2.9 % Normal 1.0-6.0 [facility] Comment on above: Performed By: #### M G3, HEMDF, BMP3M, PHOS3 #### [address] [address] [address] [place], [place] Erythrocyte distribution width (RBC) [Ratio] 15.4 % High 11.5-14.5 [facility] Comment on above: Performed By: #### M G3, HEMDF, BMP3M, PHOS3 #### [address] [address] [address] [place], [place] Granulocytes/100 WBC (Bld) 68.3 % Normal 40.0-80.0 [facility] Comment on above: Performed By: #### M G3, HEMDF, BMP3M, PHOS3 #### [address] [address] [address] [place], [place] Hematocrit (Bld) [Volume fraction] 41.0 % Normal 40.0-52.0 [facility] Comment on above: Performed By: #### M G3, HEMDF, BMP3M, PHOS3 #### [address] [address] [address] [place], [place] Hemoglobin (Bld) [Mass/Vol] 13.7 g/dL Normal 13.0-18. 0 [facility] Comment on above: Performed By: #### M G3, HEMDF, BMP3M, PHOS3 #### [address] [address] [address] [place], [place] Lymphocytes (Bld) [#/Vol] 1.5 10*3/uL Normal 1.0-4.3 [facility] Comment on above: Performed By: #### M G3, HEMDF, BMP3M, PHOS3 #### [address] [address] [place] [address] Lymphocytes/100 WBC (Bld) 22.0 % Normal 20.0-40.0 [facility] Comment on above: Performed By: #### M G3, HEMDF, BMP3M, PHOS3 #### [facility] [address] [place], [place] MCH (RBC) [Entitic mass] 27.9 pg Normal 26.0-34.0 [facility] Comment on above: Performed By: #### M G3, HEMDF, BMP3M, PHOS3 #### [address] [address] [address] [place], [place] MCHC 33.4 % Normal 32.0-36.0 [facility] Comment on above: Performed By: #### M G3, HEMDF, BMP3M, PHOS3 #### [address] [address] [address] [place], [place] MCV (RBC) [Entitic vol] 83.6 fL Normal 80.0-98.0 [facility] Comment on above: Performed By: #### Ginny G3, HEMDF, BMP3M, PHOS3 #### [address] [address] [place], [place] Monocytes (Bld) [#/Vol] 0.4 10*3/uL Normal 0.0-0.8 [facility] Comment on above: Performed By: #### M G3, HEMDF, BMP3M, PHOS3 #### [address] [address] [address] [place], [place] Monocytes/100 WBC (Bld) 6.0 % Normal 2.0-10.0 [facility] Comment on above: Performed By: #### M G3, HEMDF, BMP3M, PHOS3 #### [address] [address] [address] [place], [place] Platelet mean volume (Bld) [Entitic vol] 7.9 fL Normal 7.4-12.4 [facility] Comment on above: Result Comment: MPV is a calculated measurement using platelet volume ratio. Performed By: #### M G3, HEMDF, BMP3M, PHOS3 #### [address] [address] [address], [place] Platelets (Bld) [#/Vol] 142 10*3/uL Normal 140-440 [facility] Comment on above: Performed By: #### M G3, HEMDF, BMP3M, PHOS3 #### [address] [address] [place] [address] RBC (Bld) [#/Vol] 4.90 10*6/uL Normal 4.40-5.90 [facility] Comment on above: Performed By: #### M G3, HEMDF, BMP3M, PHOS3 #### [address] [address] [place] [address] WBC (Bld) [#/Vol] 7.0 10*3/uL Normal 3.6-10.7 [facility] Comment on above: Performed By: #### M G3, HEMDF, BMP3M, PHOS3 #### [address] [address] [place] [address] Lactic Acidon 12-17-2021 Lactate [Moles/Vol] 1.0 mmol/L Normal 0.7-2.0 [facility] Comment on above: Performed By: #### M G3, HEMDF, BMP3M, PHOS3 #### [address] [address] [place] [address] Lactate [Moles/Vol] 1 mmol/L 0.7 - 2 mmol/L [facility] Test Performed by [facility], [address] [place] [id number] [facility] Lipaseon 12-17-2021 Lipase [Catalytic activity/Vol] 79 U/L Normal 23-300 [facility] Comment on above: Performed By: #### M G3, HEMDF, BMP3M, PHOS3 #### [address] [address] [place] [address] Lipase [Catalytic activity/Vol] 79 U/L 23 - 300 U/L [facility] No Panel Informationon 12-17 Test Performed by [facility], [address] [place] [id number] [facility] TS GELon 12-17-2021 TS GEL ABO Group: O Rh, Gel: POS Antibody Screen Gel: NEG Normal [facility] Comment on above: Performed By: #### M G3, HEMDF, BMP3M, PHOS3 #### [address] [address] TYPE AND SCREENon 12-17-2021 ABO Grouping O [facility] Rh Type Positive [facility] Test Performed by [facility], [address] [place] [id number] [place] [address] LAB [facility] Troponin Ion 12-17-2021 Troponin I.cardiac [Mass/Vol] ng/mL Normal 0.000-0.03 4 [facility] Comment on above: Result Comment: . Performed By: #### M G3, HEMDF, BMP3M, PHOS3 #### [address] [address] Troponin x1on 12-17-2021 Troponin I.cardiac [Mass/Vol] ng/mL 0 - 0.034 ng/mL [facility] Comment on above: . Test Performed by [facility], [address] [place] [address] LAB [facility] Urinalysison 12-17-2021 Appearance (U) Clear Clear NA [facility] Comment on above: . Bacteria, UA Negative Negative /[HPF] [facility] Comment on above: . Bilirubin Urine Negative Negative mg/dL [facility] Comment on above: . Color (U) Yellow Lt. Yellow NA [facility] Comment on above: . Glucose, Ur Normal Normal (<70) mg/dL [facility] Comment on above: . Hyaline Casts, UA Negative Negative /[LPF] [facility] Comment on above: . Interpretation and review of laboratory results Abnormal [facility] Ketones Ql (U) Negative Negative mg/dL [facility] Comment on above: . LEUKOCYTES, UA Negative Negative Caprice/uL [facility] Comment on above: . Mucous Threads Few Negative /[LPF] [facility] Comment on above: . Nitrite, Urine Negative Negative NA [facility] Comment on above: . Occult Blood,Urine Negative Negative mg/dL [facility] Comment on above: . pH (U) 6.0 [pH] [facility] Comment on above: . Protein (U) [Mass/Vol] 50 mg/dL Abnormal Negative [facility] Comment on above: . RBC, UA /[HPF] 0 - 2 /[HPF] [facility] Comment on above: . Specific [place], Urine 1.026 [facility] Comment on above: . Squam Epithel, UA 0-2 3 - 5 /[HPF] [facility] Comment on above: . Urobilinogen, Urine Normal Normal (0-1) mg/dL [facility] Comment on above: . WBC, UA /[HPF] 0 - 5 /[HPF] [facility] Comment on above: . Test Performed by [facility], [address] [place] [id number] [place] [address] LAB [facility] Basic Metabolic Panelon 08-2 Calcium [Mass/Vol] 8.7 mg/dL Normal 8.4-10.4 [facility] Comment on above: Performed By: #### M G3, HEMDF, BMP3M, PHOS3 #### [address] Anion gap [Moles/Vol] 8 mmol/L Normal 3-13 [facility] Comment on above: Performed By: #### M G3, HEMDF, BMP3M, PHOS3 #### [address] CO2 [Moles/Vol] 24 mmol/L Normal 22-30 [facility] Comment on above: Performed By: #### M G3, HEMDF, BMP3M, PHOS3 #### [address] Creatinine [Mass/Vol] 1.30 mg/dL High 0.52-1.25 [facility] Comment on above: Performed By: #### M G3, HEMDF, BMP3M, PHOS3 #### [address] GFR/1.73 sq M.predicted ramona g blacks MDRD (S/P/Bld) [Vol rate/Area] 69.6 mL/min/{1.73_m2} Normal >60 [facility] Comment on above: Performed By: #### M G3, HEMDF, BMP3M, PHOS3 #### [address] GFR/1.73 sq M.predicted ramona g non-blacks MDRD (S/P/Bld) [Vol rate/Area] 60.1 mL/min/{1.73_m2} Normal >60 [facility] Comment on above: Result Comment: KDIG O guidelines provide the following GFR categories: Stage GFR(ml/min/1.73 m2) Terms G1 >=90 Normal or high G2 60-89 Mildly decreased* G3a 45-59 Mildly to moderately decreased G3b 30-44 Moderately to severely decreased G4 15-29 Severely decreased G5 <15 Kidney failure *Relative to young adult level. In the absence of evidence of kidney damage, neither GFR category G1 nor G2 fulfill the criteria for CKD. The CKD-EPI equation is validated in individuals 18 years of age and older. Currently the best equation for estimating glomerular filtration rate (GFR) from serum creatinine in children is the Bedside Oleary equation. It is less accurate in patients with extremes of muscle mass, restriction of dietary protein, ingestion of creatine, extra-renal metabolism of creatinine, or treatment with medications that affect renal tubular creatinine secretion. Performed By: #### M G3, HEMDF, BMP3M, PHOS3 #### [address] [address] Glucose [Mass/Vol] 100 mg/dL Normal 70-100 [facility] Comment on above: Performed By: #### M G3, HEMDF, BMP3M, PHOS3 #### [address] [address] Urea nitrogen [Mass/Vol] 12 mg/dL Normal 7-17 [facility] Comment on above: Performed By: #### M G3, HEMDF, BMP3M, PHOS3 #### [address] [address] Chloride [Moles/Vol] 105 mmol/L Normal 98-107 [facility] Comment on above: Performed By: #### M G3, HEMDF, BMP3M, PHOS3 #### [facility] [address] [place] [address] Potassium [Moles/Vol] 3.6 mmol/L Normal 3.5-5.1 [facility] Comment on above: Performed By: #### M G3, HEMDF, BMP3M, PHOS3 #### [facility] [address] [place] [address] Sodium [Moles/Vol] 138 mmol/L Normal 135-145 [facility] Comment on above: Performed By: #### M G3, HEMDF, BMP3M, PHOS3 #### [facility] [address] [place] [address] Anion gap [Moles/Vol] 8 mmol/L 3 - 13 mmol/L [facility] Calcium [Mass/Vol] 8.7 mg/dL 8.4 - 10. 4 mg/dL [facility] Chloride [Moles/Vol] 105 mmol/L 98 - 10 7 mmol/L [facility] CO2 [Moles/Vol] 24 mmol/L 22 - 30 mmol/L [facility] Creatinine [Mass/Vol] 1.3 mg/dL High 0.52 - 1.25 mg/dL [facility] EGFR IF NonAfrican [place]i 60.1 mL/min 60 - PINF mL/min [facility] Comment on above: KDIGO guidelines pro vide the following GFR categories: Stage GFR(ml/min/1.73 m2) Terms G1 >=90 Normal or high G2 60-89 Mildly decreased* G3a 45-59 Mildly to moderately decreased G3b 30-44 Moderately to severely decreased G4 15-29 Severely decreased G5 <15 Kidney failure *Relative to young adult level. In the absence of evidence of kidney damage, neither GFR category G1 nor G2 fulfill the criteria for CKD. The CKD-EPI equation is validated in individuals 18 years of age and older. Currently the best equation for estimating glomerular filtration rate (GFR) from serum creatinine in children is the Bedside Oleary equation. It is less accurate in patients with extremes of muscle mass, restriction of dietary protein, ingestion of creatine, extra-renal metabolism of creatinine, or treatment with medications that affect renal tubular creatinine secretion. GFR/1.73 sq M.predicted ramona g blacks MDRD (S/P/Bld) [Vol rate/Area] 69.6 mL/min/{1.73_m2} 60 - PINF mL/min [facility] Glucose [Mass/Vol] 100 mg/dL 70 - 100 mg/dL [facility] Interpretation and review of laboratory results Abnormal [facility] Potassium [Moles/Vol] 3.6 mmol/L 3.5 - 5.1 mmol/L [facility] Sodium [Moles/Vol] 138 mmol/L 135 - 145 mmol/L [facility] Urea nitrogen (BldV) [Mass/Vol] 12 mg/dL 7 - 17 mg/dL [facility] Test Performed by [address] [address] [facility] CBC auto differentialon 11-12 Absolute Baso # 0.0 10*3/uL 0 - 0.2 10*3/uL [facility] Absolute Neut # 4.0 10*3/uL 1.8 - 7 10*3/uL [facility] Basophils/100 WBC (Bld) 0.4 % 0 - 2 % [facility] Eosinophils (Bld) [#/Vol] 0.1 10*3/uL 0 - 0.5 10*3/uL [facility] Eosinophils/100 WBC (Bld) 1.5 % 1 - 6 % [facility] Granulocytes/100 WBC (Bld) 63.0 % 40 - 80 % [facility] Hematocrit (Bld) [Volume fraction] 36.9 % Low 40 - 52 % [facility] Hemoglobin (Bld) [Mass/Vol] 12.4 g/dL Low 13 - 18 g/dL [facility] Interpretation and review of laboratory results Abnormal [facility] Lymphocytes (Bld) [#/Vol] 1.8 10*3/uL 1 - 4.3 10*3/uL [facility] Lymphocytes/100 WBC (Bld) 28.0 % 20 - 40 % [facility] MCH (RBC) [Entitic mass] 27.7 pg 26 - 34 pg [facility] MCHC (RBC) [Mass/Vol] 33.5 % 32 - 36 % [facility] MCV (RBC) [Entitic vol] 82.8 fL 80 - 98 fL [facility] Monocytes (Bld) [#/Vol] 0.5 10*3/uL 0 - 0.8 10*3/uL [facility] Monocytes/100 WBC (Bld) 7.1 % 2 - 10 % [facility] Platelet distribution width (Bld) [Ratio] 15.3 % High 11.5 - 14.5 % [facility] Platelet mean volume (Bld) [Entitic vol] 6.8 fL Low 7.4 - 12.4 fL [facility] Comment on above: MPV is a calculated measurement using platelet volume ratio. Platelets (Bld) [#/Vol] 112 10*3/uL Low 140 - 440 10*3/uL [facility] RBC (Bld) [#/Vol] 4.46 10*6/uL 4.4 - 5.9 10*6/uL [facility] WBC (Bld) [#/Vol] 6.4 10*3/uL 3.6 - 10.7 10*3/uL [facility] Test Performed by [address] [address] [facility] EKG 12 Leadon 12-05-2021 [facility] Test Date: 2021-12-04 Pat Name: SOPHIE HICKS Department: 1A6 Room: 6121 Gender: M 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: RAHEEM : 1965 Requested By: LOUISA CABELLO Order Number: [id number] Reading MD: Wiliam Hu Measurements Intervals [place] Rate: 67 P: 22 IN: 185 QRS: 30 QRSD: 97 T: 56 QT: 406 QTc: 427 Interpretive Statements Sinus rhythm Electronically Signed On 12-05-2021 13:44:26 EDT by Wiliam Hu [facility] Wiliam Hu, DO - 12/05/2021 [employer] [facility] Test Date: 2021-12-04 Pat Name: SOPHIE HICKS Department: 1A6 Room: [facility] Gender: M 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: RAHEEM : 1965 Requested By: LOUISA CABELLO Order Number: [id number] Reading : Wiliam Hu Measurements Intervals [place] Rate: 67 P: 22 IN: 185 QRS: 30 QRSD: 97 T: 56 QT: 406 QTc: 427 Interpretive Statements Sinus rhythm Electronically Signed On 12-05-2021 13:44:26 EDT by Wiliam Hu [facility] Work Phone: EKG 12 LeadOrdered By: Konrad Hu on 12-05-2021 [facility] Work Phone: Hemogram w/ Autodiffon 12-05 Abs Baso Cnt 0.0 10*3/uL Normal 0.0-0.2 [facility] Comment on above: Performed By: #### M G3, HEMDF, BMP3M, PHOS3 #### [facility] [address] [place] [address] Abs Neutrophile Cnt 4.0 10*3/uL Normal 1.8-7.0 [facility] Comment on above: Performed By: #### M G3, HEMDF, BMP3M, PHOS3 #### [place] [address] [place] [address] Basophils/100 WBC (Bld) 0.4 % Normal 0.0-2.0 [facility] Comment on above: Performed By: #### M G3, HEMDF, BMP3M, PHOS3 #### [place] [address] [address] [place], [place] Eosinophils (Bld) [#/Vol] 0.1 10*3/uL Normal 0.0-0.5 [facility] Comment on above: Performed By: #### M G3, HEMDF, BMP3M, PHOS3 #### [place] [address] [address] [place], [place] Eosinophils/100 WBC (Bld) 1.5 % Normal 1.0-6.0 [facility] Comment on above: Performed By: #### M G3, HEMDF, BMP3M, PHOS3 #### [place] [address] [address] [place], [place] Erythrocyte distribution width (RBC) [Ratio] 15.3 % High 11.5-14.5 [facility] Comment on above: Performed By: #### M G3, HEMDF, BMP3M, PHOS3 #### [address] [place] [address] Granulocytes/100 WBC (Bld) 63.0 % Normal 40.0-80.0 [facility] Comment on above: Performed By: #### M G3, HEMDF, BMP3M, PHOS3 #### [address] [address] [place] [address] Hematocrit (Bld) [Volume fraction] 36.9 % Low 40.0-52.0 [facility] Comment on above: Performed By: #### M G3, HEMDF, BMP3M, PHOS3 #### [facility] [address] [place], [place] Hemoglobin (Bld) [Mass/Vol] 12.4 g/dL Low 13.0-18. 0 [facility] Comment on above: Performed By: #### M G3, HEMDF, BMP3M, PHOS3 #### [place] [address] [address] [place], [place] Lymphocytes (Bld) [#/Vol] 1.8 10*3/uL Normal 1.0-4.3 [facility] Comment on above: Performed By: #### M G3, HEMDF, BMP3M, PHOS3 #### [place] [address] [address] [place] Lymphocytes/100 WBC (Bld) 28.0 % Normal 20.0-40.0 [facility] Comment on above: Performed By: #### M G3, HEMDF, BMP3M, PHOS3 #### [place] [address] [address] [place] MCH (RBC) [Entitic mass] 27.7 pg Normal 26.0-34.0 [facility] Comment on above: Performed By: #### M G3, HEMDF, BMP3M, PHOS3 #### [place] [address] [address] [place] MCHC 33.5 % Normal 32.0-36.0 [facility] Comment on above: Performed By: #### M G3, HEMDF, BMP3M, PHOS3 #### [place] [address] [address] [place] MCV (RBC) [Entitic vol] 82.8 fL Normal 80.0-98.0 S [facility] Comment on above: Performed By: #### M G3, HEMDF, BMP3M, PHOS3 #### [place] [address] [address] [place], [place] Monocytes (Bld) [#/Vol] 0.5 10*3/uL Normal 0.0-0.8 [facility] Comment on above: Performed By: #### M G3, HEMDF, BMP3M, PHOS3 #### [facility] [address] [place] [address] Monocytes/100 WBC (Bld) 7.1 % Normal 2.0-10.0 [facility] Comment on above: Performed By: #### M G3, HEMDF, BMP3M, PHOS3 #### [facility] [address] [place], [place] Platelet mean volume (Bld) [Entitic vol] 6.8 fL Low 7.4-12.4 [facility] Comment on above: Result Comment: MPV is a calculated measurement using platelet volume ratio. Performed By: #### M G3, HEMDF, BMP3M, PHOS3 #### [place] [address] [address] [place], [place] Platelets (Bld) [#/Vol] 112 10*3/uL Low 140-440 [facility] Comment on above: Performed By: #### M G3, HEMDF, BMP3M, PHOS3 #### [place] [address] [address] [place], [place] RBC (Bld) [#/Vol] 4.46 10*6/uL Normal 4.40-5.90 [facility] Comment on above: Performed By: #### M G3, HEMDF, BMP3M, PHOS3 #### [place] [address] [address] [place] WBC (Bld) [#/Vol] 6.4 10*3/uL Normal 3.6-10.7 [facility] Comment on above: Performed By: #### M G3, HEMDF, BMP3M, PHOS3 #### [place] [address] [place], [place] No Panel Informationon 12-05 [facility] Surgical Pathologyon 022 Surgical Pathology Report SEE BELOW [facility] 1 DEPARTMENT OF [facility] PATHOLOGY AND LABORATORY MEDICINE [facility] [address] [place], [place] [id number] FINAL SURGICAL PATHOLOGY REPORT NAME: SOPHIE HICKS : 1965 56 Y M NELLA NO.: [id number] LOCATION: [facility] 6121 PROCEDURE 12/03/2021 DATE: SURGEON: LOUISA CABELLO DO RECEIVED 12/03/2021 DATE: ATTENDING: LOUISA CABELLO DO REPORT DATE: 12/05/2021 COPIES TO: DIAGNOSIS: A. LIVER, BIOPSY - MILD MACROVESICULAR STEATOSIS AND BRIDGING FIBROSIS Comment: Sections demonstrate an intact liver architecture with mild macrovesicular steatosis occupying approximately 30% of the liver volume.There is no evidence of ballooning degeneration, lobular activity, or Emma's hyaline. The portal tracts contain all normal structures with mild chronic inflammatory infiltrate. An iron stain is negative for increased iron storage. A trichrome stain demonstrates bridging fibrosis. B. 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 NAFLD Activity Score (CHET): Steatosis: 1 (5-33%) Lobular inflammation (foci per 20x field): 0 (0) Hepatocyte balloonin (none) Total Score: 1/8 Stage: 3 (bridging) Other features: Emma hyaline: Negative LH3/LH3 Intradepartmental Consultation: YOVANI CEE M.D.; Signature> MONSTER LAINEZ M.D. CLINICAL INFORMATION: Morbid obesity, hiatal hernia, liver biopsy. SPECIMEN: (A) LIVER NEEDLE OR WEDGE BIOPSY, MEDICAL (B) STOMACH, PARTIAL GASTRECTOMY GROSS DESCRIPTION: A. Received in formalin labeled liver biopsy are three red-brown, soft tissue segments each measuring 0.6 cm in greatest dimension. The specimen is entirely submitted in a single cassette. B. Received in formalin labeled portion of stomach is an elongated portion of stomach consistent with greater curvature measuring 16 x 4 x 2.8 cm. Serosal surface is pink-barry with fibrofatty adhesions. There is a row of metal ana that runs along one entire edge of the specimen. Upon opening the specimen, the lumen is filled with thick, hemorrhagic, mucoid contents. The mucosa is granular, pink-red with prominent rugal folds. No polyps or ulcers are identified. Multiple territory account representative sections are submitted in two cassettes. JCK/LS3 Disclaimer: The following statement applies to all immunohistochemistr y, in situ hybridization, molecular studies, and immunofluorescence testing. The use of one or more reagents in the above tests is regulated as an analyte specific reagent (ASR). These tests were developed and their performance characteristics determined by the clinical laboratories of [facility]. They have not been cleared by the US Food and Drug Administration (FDA). The FDA has determined that such clearance or approval is not necessary. All the above immunostains were performed on paraffin embedded tissue. Appropriate positive and negative controls (where applicable) were run in parallel with the patient's specimen; these controls showed expected staining pattern, with acceptable intensity of staining. Immunohistochemical assays have not been validated on decalcified tissues. Results should be interpreted with caution given the raised possibility of false negativity on decalcified specimens. Professional Performing Location: [address] [address]. DEPARTMENT OF PATHOLOGY AND LABORATORY MEDICINE [place], [place] [address] [facility] Basic Metabolic Panelon 08-2 Anion gap [Moles/Vol] 8 mmol/L Normal 3-13 [facility] Comment on above: Performed By: #### M G3, HEMDF, BMP3M, PHOS3 #### [facility] [address] [place], [place] Calcium [Mass/Vol] 8.7 mg/dL Normal 8.4-10.4 [facility] Comment on above: Performed By: #### M G3, HEMDF, BMP3M, PHOS3 #### [facility] [address] [place] [address] CO2 [Moles/Vol] 21 mmol/L Low 22-30 [facility] Comment on above: Performed By: #### M G3, HEMDF, BMP3M, PHOS3 #### [place] [address] [address] [place], [place] Glucose [Mass/Vol] 133 mg/dL High 70-100 [facility] Comment on above: Performed By: #### M G3, HEMDF, BMP3M, PHOS3 #### [place] [address] [address] [place], [place] Urea nitrogen [Mass/Vol] 12 mg/dL Normal 7-17 [facility] Comment on above: Performed By: #### M G3, HEMDF, BMP3M, PHOS3 #### [place] [address] [address] [place] Creatinine [Mass/Vol] 1.15 mg/dL Normal 0.52-1.25 [facility] Comment on above: Performed By: #### M G3, HEMDF, BMP3M, PHOS3 #### [facility] [address] [place], [place] GFR/1.73 sq M.predicted ramona g blacks MDRD (S/P/Bld) [Vol rate/Area] 80.8 mL/min/{1.73_m2} Normal >60 [facility] Comment on above: Performed By: #### M G3, HEMDF, BMP3M, PHOS3 #### [place] [address] [address] [place] GFR/1.73 sq M.predicted ramona g non-blacks MDRD (S/P/Bld) [Vol rate/Area] 69.7 mL/min/{1.73_m2} Normal >60 [facility] Comment on above: Result Comment: KDIG O guidelines provide the following GFR categories: Stage GFR(ml/min/1.73 m2) Terms G1 >=90 Normal or high G2 60-89 Mildly decreased* G3a 45-59 Mildly to moderately decreased G3b 30-44 Moderately to severely decreased G4 15-29 Severely decreased G5 <15 Kidney failure *Relative to young adult level. In the absence of evidence of kidney damage, neither GFR category G1 nor G2 fulfill the criteria for CKD. The CKD-EPI equation is validated in individuals 18 years of age and older. Currently the best equation for estimating glomerular filtration rate (GFR) from serum creatinine in children is the Bedside Oleary equation. It is less accurate in patients with extremes of muscle mass, restriction of dietary protein, ingestion of creatine, extra-renal metabolism of creatinine, or treatment with medications that affect renal tubular creatinine secretion. Performed By: #### M G3, HEMDF, BMP3M, PHOS3 #### [facility] [address] [place], [place] Potassium [Moles/Vol] 4.2 mmol/L Normal 3.5-5.1 [facility] Comment on above: Performed By: #### M G3, HEMDF, BMP3M, PHOS3 #### [facility] [address] [place] [address] Sodium [Moles/Vol] 137 mmol/L Normal 135-145 [facility] Comment on above: Performed By: #### M G3, HEMDF, BMP3M, PHOS3 #### [facility] [address] [place] [address] Chloride [Moles/Vol] 108 mmol/L High 98-107 [facility] Comment on above: Performed By: #### M G3, HEMDF, BMP3M, PHOS3 #### [facility] [address] [place] [address] Anion gap [Moles/Vol] 8 mmol/L 3 - 13 mmol/L [facility] Calcium [Mass/Vol] 8.7 mg/dL 8.4 - 10. 4 mg/dL [facility] Chloride [Moles/Vol] 108 mmol/L High 98 - 10 7 mmol/L [facility] CO2 [Moles/Vol] 21 mmol/L Low 22 - 30 mmol/L [facility] Creatinine [Mass/Vol] 1.15 mg/dL 0.52 - 1.25 mg/dL [facility] EGFR IF NonAfrican [place]i 69.7 mL/min 60 - PINF mL/min [facility] Comment on above: KDIGO guidelines pro vide the following GFR categories: Stage GFR(ml/min/1.73 m2) Terms G1 >=90 Normal or high G2 60-89 Mildly decreased* G3a 45-59 Mildly to moderately decreased G3b 30-44 Moderately to severely decreased G4 15-29 Severely decreased G5 <15 Kidney failure *Relative to young adult level. In the absence of evidence of kidney damage, neither GFR category G1 nor G2 fulfill the criteria for CKD. The CKD-EPI equation is validated in individuals 18 years of age and older. Currently the best equation for estimating glomerular filtration rate (GFR) from serum creatinine in children is the Bedside Oleary equation. It is less accurate in patients with extremes of muscle mass, restriction of dietary protein, ingestion of creatine, extra-renal metabolism of creatinine, or treatment with medications that affect renal tubular creatinine secretion. GFR/1.73 sq M.predicted ramona g blacks MDRD (S/P/Bld) [Vol rate/Area] 80.8 mL/min/{1.73_m2} 60 - PINF mL/min [facility] Glucose [Mass/Vol] 133 mg/dL High 70 - 100 mg/dL [facility] Interpretation and review of laboratory results Abnormal [facility] Potassium [Moles/Vol] 4.2 mmol/L 3.5 - 5.1 mmol/L [facility] Sodium [Moles/Vol] 137 mmol/L 135 - 145 mmol/L [facility] Urea nitrogen (BldV) [Mass/Vol] 12 mg/dL 7 - 17 mg/dL [facility] [address] [address] [facility] CBC auto differentialon - Absolute Baso # 0.0 10*3/uL 0 - 0.2 10*3/uL [facility] Absolute Neut # 10.1 10*3/uL High 1.8 - 7 10*3/uL [facility] Basophils/100 WBC (Bld) 0.3 % 0 - 2 % [facility] Eosinophils (Bld) [#/Vol] 0.0 10*3/uL 0 - 0.5 10*3/uL [facility] Eosinophils/100 WBC (Bld) 0.1 % Low 1 - 6 % [facility] Granulocytes/100 WBC (Bld) 89.6 % High 40 - 80 % [facility] Hematocrit (Bld) [Volume fraction] 38.0 % Low 40 - 52 % [facility] Hemoglobin (Bld) [Mass/Vol] 12.9 g/dL Low 13 - 18 g/dL [facility] Interpretation and review of laboratory results Abnormal [facility] Lymphocytes (Bld) [#/Vol] 0.6 10*3/uL Low 1 - 4.3 10*3/uL [facility] Lymphocytes/100 WBC (Bld) 5.5 % Low 20 - 40 % [facility] MCH (RBC) [Entitic mass] 27.7 pg 26 - 34 pg [facility] MCHC (RBC) [Mass/Vol] 34.0 % 32 - 36 % [facility] MCV (RBC) [Entitic vol] 81.3 fL 80 - 98 fL [facility] Monocytes (Bld) [#/Vol] 0.5 10*3/uL 0 - 0.8 10*3/uL [facility] Monocytes/100 WBC (Bld) 4.5 % 2 - 10 % [facility] Platelet distribution width (Bld) [Ratio] 14.6 % High 11.5 - 14.5 % [facility] Platelet mean volume (Bld) [Entitic vol] 6.9 fL Low 7.4 - 12.4 fL [facility] Comment on above: MPV is a calculated measurement using platelet volume ratio. Platelets (Bld) [#/Vol] 152 10*3/uL 140 - 440 10*3/uL [facility] RBC (Bld) [#/Vol] 4.68 10*6/uL 4.4 - 5.9 10*6/uL [facility] WBC (Bld) [#/Vol] 11.3 10*3/uL High 3.6 - 10.7 10*3/uL [facility] Test Performed by [facility] [employer] [facility], [address] [place] [id number] [place] [address] LAB [facility] CR Chest Portableon 12-05-19 CR Chest Portable Patient Name: SOPHIE HICKS Diagnostic Radiology ACCESSION EXAM DATE/TIME PROCEDURE ORDERING PROVIDER [id number] 12/04/2021 01:52 EDT CR Chest Portable [id number] -ERIN ADANE CPT code 91767 Reason For Exam (CR Chest Portable) S/p fall, chest pain Report CLINICAL INFORMATION: Chest pain after trauma. Fall. Portable view of the chest at 0130 hours is provided and compared with a previous study dated 11/20/2021. FINDINGS: The cardiac silhouette and mediastinum are within normal limits. The lungs are free of infiltrate or pleural effusion. No rib fractures are appreciated. There is no pneumothorax. IMPRESSION: 1. No evidence of an acute cardiopulmonary process. Report Dictated on Final Dictated: 12/04/2021 2:14 am Dictating Physician: MD BELL JEFFREY Signed Date and Time: 12/04/2021 2:15 am Signed by: MD BELL JEFFREY Transcribed Date and Time: 12/04/2021 2:[address] [facility] [address] HEAD WO CONTRASTon 2021 Patient Name: SOPHIE HICKS Computed Tomography ACCESSION EXAM DATE/TIME PROCEDURE ORDERING PROVIDER [id number] 12/04/2021 01:[address] Head or Brain w/o [id number] -ERIN ADANE Contrast CPT code 70721 Reason For Exam (CT Head or Brain w/o Contrast) S/P fall, hit head Report CLINICAL INFORMATION: Head pain after trauma. Fall. 3 mm axial cuts through the head are obtained without IV contrast. The examination is compared to a previous study dated 02/11/2021. FINDINGS: The ventricles are within normal limits in respect to their size and configuration. There is no evidence of mass or mass-effect. There are no abnormal intra- or extra-axial fluid collections. No hemorrhage is identified. There is no CT evidence of an acute infarct. Bone windows demonstrate no evidence of fracture and the visualized paranasal sinuses and mastoid air cells are clear. There is a significant amount of cerumen/debris in the left external auditory canal. IMPRESSION: 1. No evidence of an acute intracranial process. 2. No intracranial hemorrhage. 3. Cerumen/debris in the left external auditory canal. Please correlate with direct visualization. Report Dictated on --- Final --- Dictated: 12/04/2021 2:16 am Dictating Physician: MD BELL JEFFREY Signed Date and Time: 12/04/2021 2:18 am Signed by: MD BELL JEFFREY Transcribed Date and Time: 12/04/2021 2:16 [facility] Landon Bell MD - 12/04/2021 Patient Name: SOPHIE HICKS Computed Tomography ACCESSION EXAM DATE/TIME PROCEDURE ORDERING PROVIDER [id number] 12/04/2021 01:[address] Head or Brain w/o [id number] -LOCO, [place] Contrast CPT code 31807 Reason For Exam (CT Head or Brain w/o Contrast) S/P fall, hit head Report CLINICAL INFORMATION: Head pain after trauma. Fall. 3 mm axial cuts through the head are obtained without IV contrast. The examination is compared to a previous study dated 02/11/2021. FINDINGS: The ventricles are within normal limits in respect to their size and configuration. There is no evidence of mass or mass-effect. There are no abnormal intra- or extra-axial fluid collections. No hemorrhage is identified. There is no CT evidence of an acute infarct. Bone windows demonstrate no evidence of fracture and the visualized paranasal sinuses and mastoid air cells are clear. There is a significant amount of cerumen/debris in the left external auditory canal. IMPRESSION: 1. No evidence of an acute intracranial process. 2. No intracranial hemorrhage. 3. Cerumen/debris in the left external auditory canal. Please correlate with direct visualization. Report Dictated on --- Final --- Dictated: 12/04/2021 2:16 am Dictating Physician: MD BELL JEFFREY Signed Date and Time: 12/04/2021 2:18 am Signed by: MD BELL JEFFREY Transcribed Date and Time: 12/04/2021 2:16 [facility] Work Phone: [facility] Work Phone: CT Head or Brain w/o Contras ton 12-04-2021 CT Head or Brain w/o Contrast Patient Na me: SOPHIE HICKS Computed Tomography ACCESSION EXAM DATE/TIME PROCEDURE ORDERING PROVIDER [id number] 12/04/2021 01:[address] Head or Brain w/o [id number] -LOCO, [facility] Contrast CPT code 69876 Reason For Exam (CT Head or Brain w/o Contrast) S/P fall, hit head Report CLINICAL INFORMATION: Head pain after trauma. Fall. 3 mm axial cuts through the head are obtained without IV contrast. The examination is compared to a previous study dated 02/11/2021. FINDINGS: The ventricles are within normal limits in respect to their size and configuration. There is no evidence of mass or mass-effect. There are no abnormal intra- or extra-axial fluid collections. No hemorrhage is identified. There is no CT evidence of an acute infarct. Bone windows demonstrate no evidence of fracture and the visualized paranasal sinuses and mastoid air cells are clear. There is a significant amount of cerumen/debris in the left external auditory canal. IMPRESSION: 1. No evidence of an acute intracranial process. 2. No intracranial hemorrhage. 3. Cerumen/debris in the left external auditory canal. Please correlate with direct visualization. Report Dictated on Final Dictated: 12/04/2021 2:16 am Dictating Physician: MD BELL JEFFREY Signed Date and Time: 12/04/2021 2:18 am Signed by: MD BELL JEFFREY Transcribed Date and Time: 12/04/2021 2:16 Normal [facility] [place] UGIon 12-04-2021 Patient Name: SOPHIE HICKS Fluoroscopy ACCESSION EXAM DATE/TIME PROCEDURE ORDERING PROVIDER [id number] 12/04/2021 07:36 EDT RF UGI w/o KUB & w/ or RAMÓN JACKSON w/o Delay Flm CPT code 98608 Reason For Exam (RF UGI w/o KUB & w/ or w/o Delay Flm) S/p bariatric surgery Report GASTROGRAFIN UGI SERIES: CLINICAL INDICATIONS: Post op day one gastric sleeve, evaluate for leak. COMPARISON: 03/05/2021 TECHNIQUE: Gastrografin was administered orally in the upright position. FLUOROSCOPY TIME: 0.11 minutes FLUOROSCOPIC EXPOSURES: 51 FINDINGS: Gastrografin was administered in the upright position. The esophagus is of normal course and caliber. Laparoscopic sleeve gastrectomy ( LSG ) is seen with longitudinal resection of the fundus, body, and antrum of the stomach. Approximately two thirds gastrectomy was done, leaving a remaining tubular stomach conduit, seen on fluoroscopy. There is no extravasation or leaks. There is prompt emptying of the conduit. IMPRESSION: Changes consistent with sleeve gastrectomy. No extravasation or obstruction. Report Dictated on --- Final --- Dictated: 12/04/2021 7:42 am Dictating Physician: MD SEGURA JONATHAN R Signed Date and Time: 12/04/2021 8:29 am Signed by: MD SEGURA JONATHAN R Transcribed Date and Time: 12/04/2021 7:42 [facility] Eduard Segura MD - 12/04/2021 [id number] ACCESSION EXAM DATE/TIME PROCEDURE ORDERING PROVIDER [id number] 12/04/2021 07:36 EDT RF UGI w/o KUB & w/ or RAMÓN JACKSON w/o Delay Flm CPT code 01565 Reason For Exam (RF UGI w/o KUB & w/ or w/o Delay Flm) S/p bariatric surgery Report GASTROGRAFIN UGI SERIES: CLINICAL INDICATIONS: Post op day one gastric sleeve, evaluate for leak. COMPARISON: 03/05/2021 TECHNIQUE: Gastrografin was administered orally in the upright position. FLUOROSCOPY TIME: 0.11 minutes FLUOROSCOPIC EXPOSURES: 51 FINDINGS: Gastrografin was administered in the upright position. The esophagus is of normal course and caliber. Laparoscopic sleeve gastrectomy ( LSG ) is seen with longitudinal resection of the fundus, body, and antrum of the stomach. Approximately two thirds gastrectomy was done, leaving a remaining tubular stomach conduit, seen on fluoroscopy. There is no extravasation or leaks. There is prompt emptying of the conduit. IMPRESSION: Changes consistent with sleeve gastrectomy. No extravasation or obstruction. Report Dictated on --- Final --- Dictated: 12/04/2021 7:42 am Dictating Physician: MD SEGURA JONATHAN R Signed Date and Time: 12/04/2021 8:29 am Signed by: MD SEGURA JONATHAN R Transcribed Date and Time: 12/04/2021 7:42 [facility] Work Phone: Radiology Study observation (narrative) [facility] Work Phone: [place] UGIOrdered By: Eduard orta on 12-04-2021 [facility] Work Phone: Hemogram w/ Autodiffon 12-04 Abs Baso Cnt 0.0 10*3/uL Normal 0.0-0.2 [facility] Comment on above: Performed By: #### M G3, HEMDF, BMP3M, PHOS3 #### [facility] [address] [place] [address] Abs Neutrophile Cnt 10.1 10*3/uL High 1.8-7.0 [facility] Comment on above: Performed By: #### M G3, HEMDF, BMP3M, PHOS3 #### [facility] [address] [place] [address] Basophils/100 WBC (Bld) 0.3 % Normal 0.0-2.0 S [facility] Comment on above: Performed By: #### M G3, HEMDF, BMP3M, PHOS3 #### [facility] [address] [place], [place] Eosinophils (Bld) [#/Vol] 0.0 10*3/uL Normal 0.0-0.5 [facility] Comment on above: Performed By: #### M G3, HEMDF, BMP3M, PHOS3 #### [place] [address] [place], [place] Eosinophils/100 WBC (Bld) 0.1 % Low 1.0-6.0 [facility] Comment on above: Performed By: #### M G3, HEMDF, BMP3M, PHOS3 #### [place] [address] [place], [place] Erythrocyte distribution width (RBC) [Ratio] 14.6 % High 11.5-14.5 [facility] Comment on above: Performed By: #### M G3, HEMDF, BMP3M, PHOS3 #### [place] [address] [address] [place], [place] Granulocytes/100 WBC (Bld) 89.6 % High 40.0-80.0 [facility] Comment on above: Performed By: #### M G3, HEMDF, BMP3M, PHOS3 #### [place] [address] [address] [place], [place] Hematocrit (Bld) [Volume fraction] 38.0 % Low 40.0-52.0 [facility] Comment on above: Performed By: #### M G3, HEMDF, BMP3M, PHOS3 #### [place] [address] [address] [place], [place] Hemoglobin (Bld) [Mass/Vol] 12.9 g/dL Low 13.0-18. 0 [facility] Comment on above: Performed By: #### M G3, HEMDF, BMP3M, PHOS3 #### [place] [address] [place], [place] Lymphocytes (Bld) [#/Vol] 0.6 10*3/uL Low 1.0-4.3 [facility] Comment on above: Performed By: #### M G3, HEMDF, BMP3M, PHOS3 #### [place] [address] [address] [place], [place] Lymphocytes/100 WBC (Bld) 5.5 % Low 20.0-40.0 [facility] Comment on above: Performed By: #### M G3, HEMDF, BMP3M, PHOS3 #### [facility] [address] [place], [place] MCH (RBC) [Entitic mass] 27.7 pg Normal 26.0-34.0 [facility] Comment on above: Performed By: #### M G3, HEMDF, BMP3M, PHOS3 #### [facility] [address] [place], [place] MCHC 34.0 % Normal 32.0-36.0 [facility] Comment on above: Performed By: #### M G3, HEMDF, BMP3M, PHOS3 #### [place] [address] [address] [place], [place] MCV (RBC) [Entitic vol] 81.3 fL Normal 80.0-98.0 S [facility] Comment on above: Performed By: #### M G3, HEMDF, BMP3M, PHOS3 #### [place] [address] [place], [place] Monocytes (Bld) [#/Vol] 0.5 10*3/uL Normal 0.0-0.8 [facility] Comment on above: Performed By: #### M G3, HEMDF, BMP3M, PHOS3 #### [place] [address] [address] [place], [place] Monocytes/100 WBC (Bld) 4.5 % Normal 2.0-10.0 S [facility] Comment on above: Performed By: #### M G3, HEMDF, BMP3M, PHOS3 #### [place] [address] [address] [place], [place] Platelet mean volume (Bld) [Entitic vol] 6.9 fL Low 7.4-12.4 [facility] Comment on above: Result Comment: MPV is a calculated measurement using platelet volume ratio. Performed By: #### M G3, HEMDF, BMP3M, PHOS3 #### [place] [address] [address] [place], [place] Platelets (Bld) [#/Vol] 152 10*3/uL Normal 140-440 [facility] Comment on above: Performed By: #### M G3, HEMDF, BMP3M, PHOS3 #### [facility] [address] [place], [place] RBC (Bld) [#/Vol] 4.68 10*6/uL Normal 4.40-5.90 [facility] Comment on above: Performed By: #### M G3, HEMDF, BMP3M, PHOS3 #### [facility] [address] [place] [address] WBC (Bld) [#/Vol] 11.3 10*3/uL High 3.6-10.7 [facility] Comment on above: Performed By: #### M G3, HEMDF, BMP3M, PHOS3 #### [facility] [address] [place], [place] No Panel Informationon 12-04 Radiology Study observation (narrative) [facility] Work Phone: RF UGI w/o KUB w/ or w/o Del ay Flmon 12-04-2021 RF UGI w/o KUB w/ or w/o Delay Flm Patient Name: SOPHIE HICKS Fluoroscopy ACCESSION EXAM DATE/TIME PROCEDURE ORDERING PROVIDER [id number] 12/04/2021 07:36 EDT RF UGI w/o KUB and w/ or RAMÓN JACKSON w/o Delay Flm CPT code 66855 Reason For Exam (RF UGI w/o KUB and w/ or w/o Delay Flm) S/p bariatric surgery Report GASTROGRAFIN UGI SERIES: CLINICAL INDICATIONS: Post op day one gastric sleeve, evaluate for leak. COMPARISON: 03/05/2021 TECHNIQUE: Gastrografin was administered orally in the upright position. FLUOROSCOPY TIME: 0.11 minutes FLUOROSCOPIC EXPOSURES: 51 FINDINGS: Gastrografin was administered in the upright position. The esophagus is of normal course and caliber. Laparoscopic sleeve gastrectomy ( LSG ) is seen with longitudinal resection of the fundus, body, and antrum of the stomach. Approximately two thirds gastrectomy was done, leaving a remaining tubular stomach conduit, seen on fluoroscopy. There is no extravasation or leaks. There is prompt emptying of the conduit. IMPRESSION: Changes consistent with sleeve gastrectomy. No extravasation or obstruction. Report Dictated on Final Dictated: 12/04/2021 7:42 am Dictating Physician: MD SEGURA JONATHAN R Signed Date and Time: 12/04/2021 8:29 am Signed by: MD SEGURA JONATHAN R Transcribed Date and Time: 12/04/2021 7:42 [facility] XR CHEST PORTABLEon 12-05-19 Patient Name: SOPHIE HICKS Diagnostic Radiology ACCESSION EXAM DATE/TIME PROCEDURE ORDERING PROVIDER [id number] 12/04/2021 01:52 EDT CR Chest Portable [id number] -[facility]ER[facility]ANDON CPT code 45798 Reason For Exam (CR Chest Portable) S/p fall, chest pain Report CLINICAL INFORMATION: Chest pain after trauma. Fall. Portable view of the chest at 0130 hours is provided and compared with a previous study dated 11/20/2021. FINDINGS: The cardiac silhouette and mediastinum are within normal limits. The lungs are free of infiltrate or pleural effusion. No rib fractures are appreciated. There is no pneumothorax. IMPRESSION: 1. No evidence of an acute cardiopulmonary process. Report Dictated on --- Final --- Dictated: 12/04/2021 2:14 am Dictating Physician: MD BELL JEFFREY Signed Date and Time: 12/04/2021 2:15 am Signed by: MD BELL JEFFREY Transcribed Date and Time: 12/04/2021 2:14 [facility] Landon Bell MD - 12/04/2021 Patient Name: SOPHIE HICKS Diagnostic Radiology ACCESSION EXAM DATE/TIME PROCEDURE ORDERING PROVIDER [id number] 12/04/2021 01:52 EDT CR Chest Portable [id number] -LOCO, [place] CPT code 31238 Reason For Exam (CR Chest Portable) S/p fall, chest pain Report CLINICAL INFORMATION: Chest pain after trauma. Fall. Portable view of the chest at 0130 hours is provided and compared with a previous study dated 11/20/2021. FINDINGS: The cardiac silhouette and mediastinum are within normal limits. The lungs are free of infiltrate or pleural effusion. No rib fractures are appreciated. There is no pneumothorax. IMPRESSION: 1. No evidence of an acute cardiopulmonary process. Report Dictated on --- Final --- Dictated: 12/04/2021 2:14 am Dictating Physician: MD BELL JEFFREY Signed Date and Time: 12/04/2021 2:15 am Signed by: MD BELL JEFFREY Transcribed Date and Time: 12/04/2021 2:14 [facility] Work Phone: XR CHEST PORTABLEOrdered By: Landon Bell on 12-04-2021 [facility] Work Phone: Basic Metabolic Panelon 11-12 Calcium [Mass/Vol] 8.7 mg/dL Normal 8.4-10.4 [facility] Comment on above: Performed By: #### H GHCT BMP3 #### [place] [address] [place] [address] Glucose [Mass/Vol] 193 mg/dL High 70-100 [facility] Comment on above: Performed By: #### H GHCT BMP3 #### [place] [address] [place] [address] Urea nitrogen [Mass/Vol] 11 mg/dL Normal 7-17 [facility] Comment on above: Performed By: #### H GHCT BMP3 #### [facility] [address] [place] [address] Anion gap [Moles/Vol] 9 mmol/L Normal 3-13 [facility] Comment on above: Performed By: #### H GHCT BMP3 #### [facility] [address] [place] [address] CO2 [Moles/Vol] 26 mmol/L Normal 22-30 [facility] Comment on above: Performed By: #### H GHCT, BMP3 #### [facility] [address] [place], [place] Creatinine [Mass/Vol] 1.33 mg/dL High 0.52-1.25 [facility] Comment on above: Performed By: #### H GHCT, BMP3 #### [facility] [address] [place], [place] GFR/1.73 sq M.predicted ramona g blacks MDRD (S/P/Bld) [Vol rate/Area] 67.7 mL/min/{1.73_m2} Normal >60 [facility] Comment on above: Performed By: #### H GHCT, BMP3 #### [facility] [address] [place], [place] GFR/1.73 sq M.predicted ramona g non-blacks MDRD (S/P/Bld) [Vol rate/Area] 58.4 mL/min/{1.73_m2} Abnormal >60 [facility] Comment on above: Result Comment: KDIG O guidelines provide the following GFR categories: Stage GFR(ml/min/1.73 m2) Terms G1 >=90 Normal or high G2 60-89 Mildly decreased* G3a 45-59 Mildly to moderately decreased G3b 30-44 Moderately to severely decreased G4 15-29 Severely decreased G5 <15 Kidney failure *Relative to young adult level. In the absence of evidence of kidney damage, neither GFR category G1 nor G2 fulfill the criteria for CKD. The CKD-EPI equation is validated in individuals 18 years of age and older. Currently the best equation for estimating glomerular filtration rate (GFR) from serum creatinine in children is the Bedside Oleary equation. It is less accurate in patients with extremes of muscle mass, restriction of dietary protein, ingestion of creatine, extra-renal metabolism of creatinine, or treatment with medications that affect renal tubular creatinine secretion. Performed By: #### H GHCT, BMP3 #### [facility] [address] [place], [place] Potassium [Moles/Vol] 3.6 mmol/L Normal 3.5-5.1 [facility] Comment on above: Performed By: #### H GHCT, BMP3 #### [facility] [address] [place], [place] Chloride [Moles/Vol] 105 mmol/L Normal 98-107 [facility] Comment on above: Performed By: #### H RANDY KEARNEY3 #### [facility] [address] [place] [address] Sodium [Moles/Vol] 140 mmol/L Normal 135-145 [facility] Comment on above: Performed By: #### H RANYD MORA3 #### [facility] [address] [place] [address] Anion gap [Moles/Vol] 9 mmol/L 3 - 13 mmol/L [facility] Calcium [Mass/Vol] 8.7 mg/dL 8.4 - 10. 4 mg/dL [facility] Chloride [Moles/Vol] 105 mmol/L 98 - 10 7 mmol/L [facility] CO2 [Moles/Vol] 26 mmol/L 22 - 30 mmol/L [facility] Creatinine [Mass/Vol] 1.33 mg/dL High 0.52 - 1.25 mg/dL [facility] EGFR IF NonAfrican Omani 58.4 mL/min Abnormal 60 - PINF mL/min [facility] Comment on above: KDIGO guidelines pro vide the following GFR categories: Stage GFR(ml/min/1.73 m2) Terms G1 >=90 Normal or high G2 60-89 Mildly decreased* G3a 45-59 Mildly to moderately decreased G3b 30-44 Moderately to severely decreased G4 15-29 Severely decreased G5 <15 Kidney failure *Relative to young adult level. In the absence of evidence of kidney damage, neither GFR category G1 nor G2 fulfill the criteria for CKD. The CKD-EPI equation is validated in individuals 18 years of age and older. Currently the best equation for estimating glomerular filtration rate (GFR) from serum creatinine in children is the Bedside Oleary equation. It is less accurate in patients with extremes of muscle mass, restriction of dietary protein, ingestion of creatine, extra-renal metabolism of creatinine, or treatment with medications that affect renal tubular creatinine secretion. GFR/1.73 sq M.predicted ramona g blacks MDRD (S/P/Bld) [Vol rate/Area] 67.7 mL/min/{1.73_m2} 60 - PINF mL/min [facility] Glucose [Mass/Vol] 193 mg/dL High 70 - 100 mg/dL [facility] Interpretation and review of laboratory results Abnormal [facility] Potassium [Moles/Vol] 3.6 mmol/L 3.5 - 5.1 mmol/L [facility] Sodium [Moles/Vol] 140 mmol/L 135 - 145 mmol/L [facility] Urea nitrogen (BldV) [Mass/Vol] 11 mg/dL 7 - 17 mg/dL [facility] Test Performed by [facility], [address] [place] [id number] [place] [address] LAB [facility] Glucose,Bedsideon 12-03-2021 Glucose [Mass/Vol] 179 mg/dL High 70-100 [facility] Comment on above: Result Comment: Test performed by glucose meter. Results may be 10%-15% lower than serum/plasma values. (CLIA ID [id number]) Performed By: #### B GLU #### [address] Glucose [Mass/Vol] 98 mg/dL Normal 70-100 [facility] Comment on above: Result Comment: Test performed by glucose meter. Results may be 10%-15% lower than serum/plasma values. (CLIA ID [id number]) Performed By: #### M G3, HEMDF, BMP3M, PHOS3 #### [address] Hemoglobin AND Hematocriton 12-03-2021 Hematocrit (Bld) [Volume fraction] 40.8 % Normal 40.0-52.0 [facility] Comment on above: Performed By: #### H GHCT, BMP3 #### [address] Hemoglobin (Bld) [Mass/Vol] 13.5 g/dL Normal 13.0-18. 0 [facility] Comment on above: Performed By: #### H GHCT, BMP3 #### [address] Hemoglobin and Hematocrit, B loodon 12-03-2021 Hematocrit (Bld) [Volume fraction] 40.8 % 40 - 52 % [facility] Hemoglobin (Bld) [Mass/Vol] 13.5 g/dL 13 - 18 g/dL [facility] Test Performed by [facility], [address] [place] [id number] [facility] LAB [facility] OPERATIVE REPORTon Ordered by an unspecified provider. [facility] Op Noteon 12-03-2021 Op Note Patient: Sophie Hicks Date of : 1965 Service Date: 12/03/21 PROCEDURE: LAPAROSCOPIC SLEEVE GASTRECTOMY. LAPAROSCOPIC LIVER BIOPSY. UPPER GI ENDOSCOPY. PREOPERATIVE DIAGNOSES: Sleep apnea Type 2 dm chf Morbid obesity. Hepatic steatosis. POSTOPERATIVE DIAGNOSES: Same ANESTHESIA: General. SURGEON: Louisa Cabello D.O. MACHINE HAMPER MAKER: Dr. Jackson FLUIDS: 500 mL of crystalloid. ESTIMATED BLOOD LOSS: Minimal. URINE OUTPUT: Not recorded. PREOPERATIVE MEDICATIONS: See Epic chart INDICATIONS FOR PROCEDURE: The patient is a 56 y.o. male with morbid obesity with a Body mass index is 46.87 kg/m?. and is now scheduled for a sleeve gastrectomy. DESCRIPTION OF PROCEDURE: The patient was brought to the operating room and placed in supine position. After initiation of general anesthesia by the Anesthesia Department, the patient was placed in split-leg lithotomy and his arms were extended. Care was taken to pad the bony prominences. His abdomen was shaved, prepped, and draped in a normal sterile fashion. A 5 mm trocar was placed in the left upper quadrant. We insufflated without difficulty. We placed a 5 mm trocar in the left upper quadrant, one in the right upper quadrant, one in the mid-epigastrium, one inferiorly and lateral for the initial access port. A 5 mm subxiphoid stab wound was created for retraction of the left lobe of liver using the Ciara liver retractor and a 12 mm stapling port was placed in the right lower quadrant. The phrenoesophageal ligament was divided using hook electrocautery exposing the left priti of the diaphragm. We then began by dividing the short gastric vessels. The Enseal was used to separate the short gastric vessels beginning 2/[address] the greater curvature of the stomach, we then extended cephalad to the angle of His. We then worked distal to approximately 4 cm from the pylorus on all the posterior attachments of the stomach were taken down sharply. At this point, a 40-Cymro bougie was placed, and positioned into the duodenum. Sequential black staple loads were used to create a tubularization and sleeve gastrectomy along the lesser curvature using the bougie as a guide. Sequential black staple loads, green and blue staple loads were used to complete the sleeve gastrectomy. We did staying medial to the first short gastric vascular pedicle, and the remaining attachments to the superior aspect of the spleen were taken down using the Enseal until the remnant was freely mobile. At this point, multiple sutures of 3-0 Vicryl were used to oversew the staple lines and the confluence of staple lines. Once this was performed, a liver biopsy was performed. Preoperative abdominal ultrasound and intraabdominal evaluation of the liver identified fatty infiltration. This was confirmed with intra-abdominal evaluation of the liver and visual inspection showing severe enlargement of the right and left lobe of the liver. As a result of the grossly abnormal visual inspection of the liver as well as abnormal preoperative radiographic ultrasound, liver biopsy was performed. Multiple bites of the left lobe of the liver were obtained using a laparoscopic wedge liver biopsy forceps. Tissue was sent to pathology for pathologic interpretation. Hemostasis was completed using Bovie electrocautery. After completing the sleeve gastrectomy upper GI endoscopy was performed in order to evaluate the integrity of the staple line. The Olympus gastroscope was introduced through the mouth, through the esophagus and through the gastric tubule. The scope was passed through the pylorus and into the duodenum. The scope was then withdrawn slowly and there was no evidence of narrowing at the incisura. The gastric tubule was submerged under irrigation placed in the abdomen. There was no evidence of air extravasation on the intraoperative leak test performed. The air was evacuated and the scope removed from the patient. The gastric remnant was removed through the right lower quadrant stapling port. The 12 mm port sites were closed with multiple 0 Vicryl sutures. The skin was closed using 4-0 Vicryl. He tolerated the procedure well, was extubated and sent to the recovery room in stable condition. [facility] Data Collection Sheet Start Time: 804 Stop Time: 904 Bougie (or sizing device): 40 Cymro Distance from pylorus: 4 cm Staple Line reinforcement: [] Yes [x] No Oversew: [x] Yes [] No Electrical Foreman: [x] Resident [] Fellow [] PA/ESCROW MANAGER/FISHER CLAM [] Attending - Weight Loss Surgeon ASA Class: [] 1 [] 2 [x] 3 []4 [] 5 Surgical Approach: [x] Conventional laparoscopic [] Robotic-assisted [] Open Was the procedure converted to another approach? [] Yes [x] No Was the case aborted? [] Yes [x] No Was a drain placed at the time of the initial operation? [x] Yes [] No Was a swallow study performed the day of or the day after the procedure? [x] Yes [] No Was the (more content not included)... Normal [facility] POCT GlucoseOrdered By: Junaid Wade on 12-03-2021 Glucose [Mass/Vol] 179 mg/dL High 70 - 100 mg/dL [facility] Work Phone: Comment on above: Test performed by gl ucose meter. Results may be 10%-15% lower than serum/plasma values. (CLIA ID [id number]) Interpretation and review of laboratory results Abnormal [facility] Work Phone: [facility] Work Phone: POCT Glucoseon 12-03-2021 Test Performed by [address] LAB Test Performed by [id number] [place] [address] LAB POCT GlucoseOrdered By: Morgan Stephen on 12-03-2021 Glucose [Mass/Vol] 98 mg/dL 70 - 100 mg/dL [facility] Comment on above: Test performed by gl ucose meter. Results may be 10%-15% lower than serum/plasma values. (CLIA ID [id number]) [facility] Surgical Pathologyon 022 Surgical Pathology [id number] [facility] PATHOLOGY AND LABORATORY MEDICINE [address] [place] [id number] FINAL SURGICAL PATHOLOGY REPORT NAME: SOPHIE HICKS : 1965 56 Y M NELLA NO.: [id number] LOCATION: [id number] PROCEDURE 12/03/2021 DATE: SURGEON: LOUISA CABELLO DO RECEIVED 12/03/2021 DATE: ATTENDING: LOUISA CABELLO DO REPORT DATE: 12/05/2021 COPIES TO: DIAGNOSIS: A. LIVER, BIOPSY - MILD MACROVESICULAR STEATOSIS AND BRIDGING FIBROSIS Comment: Sections demonstrate an intact liver architecture with mild macrovesicular steatosis occupying approximately 30% of the liver volume.There is no evidence of ballooning degeneration, lobular activity, or Emma's hyaline. The portal tracts contain all normal structures with mild chronic inflammatory infiltrate. An iron stain is negative for increased iron storage. A trichrome stain demonstrates bridging fibrosis. B. 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 NAFLD Activity Score (CHET): Steatosis: 1 (5-33%) Lobular inflammation (foci per 20x field): 0 (0) Hepatocyte balloonin (none) Total Score: 1/8 Stage: 3 (bridging) Other features: Emma hyaline: Negative LH3/LH3 Intradepartmental Consultation: YOVANI CEE M.D.; Signature> MONSTER LAINEZ M.D. CLINICAL INFORMATION: Morbid obesity, hiatal hernia, liver biopsy. SPECIMEN: (A) LIVER NEEDLE OR WEDGE BIOPSY, MEDICAL (B) STOMACH, PARTIAL GASTRECTOMY GROSS DESCRIPTION: A. Received in formalin labeled liver biopsy are three red-brown, soft tissue segments each measuring 0.6 cm in greatest dimension. The specimen is entirely submitted in a single cassette. B. Received in formalin labeled portion of stomach is an elongated portion of stomach consistent with greater curvature measuring 16 x 4 x 2.8 cm. Serosal surface is pink-barry with fibrofatty adhesions. There is a row of metal ana that runs along one entire edge of the specimen. Upon opening the specimen, the lumen is filled with thick, hemorrhagic, mucoid contents. The mucosa is granular, pink-rde with prominent rugal folds. No polyps or ulcers are identified. Multiple territory account representative sections are submitted in two cassettes. JCK/LS3 Disclaimer: The following statement applies to all immunohistochemistr y, in situ hybridization, molecular studies, and immunofluorescence testing. The use of one or more reagents in the above tests is regulated as an analyte specific reagent (ASR). These tests were developed and their performance characteristics determined by the clinical laboratories of [facility]. They have not been cleared by the US Food and Drug Administration (FDA). The FDA has determined that such clearance or approval is not necessary. All the above immunostains were performed on paraffin embedded tissue. Appropriate positive and negative controls (where applicable) were run in parallel with the patient's specimen; these controls showed expected staining pattern, with acceptable intensity of staining. Immunohistochemical assays have not been validated on decalcified tissues. Results should be interpreted with caution given the raised possibility of false negativity on decalcified specimens. Professional Performing Location: [address] [address]. DEPARTMENT OF PATHOLOGY AND LABORATORY MEDICINE [place], [place] [address] [email or web address] Normal [facility] CR Chest PA/LATon 11-20-2021 CR Chest PA/LAT Patient Name: SOPHIE HICKSN: [id number] Diagnostic Radiology ACCESSION EXAM DATE/TIME PROCEDURE ORDERING PROVIDER [id number] 11/20/2021 08:34 EDT CR Chest PA and LAT ONEIL ESCROW MANAGER, TONIA R. CPT code 47559 Reason For Exam (CR Chest PA and LAT) PRE-OP Report Clinical History: PRE-OP Comparison: 02/11/2021 Technique: PA and lateral radiographs were obtained of the chest. Findings: The lungs are clear with no acute infiltrate or effusion. The heart size and mediastinal contours are normal. Pulmonary vascularity is normal and there is no pneumothorax. The osseous structures are unremarkable. Impression: Lungs clear with no acute infiltrate or effusion. Report Dictated on Final Dictating Physician: MD MOROCHO YUN ROBERT Signed Date and Time: 11/20/2021 10:07 am Signed by: MD MOROCHO YUN ROBERT Transcribed Date and Time: 11/20/2021 10:08 Normal [facility] XR CHEST (2 VW)on 11-20-2021 Patient Name: SOPHIE HICKS Diagnostic Radiology ACCESSION EXAM DATE/TIME PROCEDURE ORDERING PROVIDER [id number] 11/20/2021 08:34 EDT CR Chest PA & LAT JORDAN RIGGS, TONIA R. CPT code 12921 Reason For Exam (CR Chest PA & LAT) PRE-OP Report Clinical History: PRE-OP Comparison: 02/11/2021 Technique: PA and lateral radiographs were obtained of the chest. Findings: The lungs are clear with no acute infiltrate or effusion. The heart size and mediastinal contours are normal. Pulmonary vascularity is normal and there is no pneumothorax. The osseous structures are unremarkable. Impression: Lungs clear with no acute infiltrate or effusion. Report Dictated on --- Final --- Dictating Physician: MD MOROCHO YUN ROBERT Signed Date and Time: 11/20/2021 10:07 am Signed by: MD MOROCHO YUN ROBERT Transcribed Date and Time: 11/20/2021 10:08 [facility] Ermelinda Morocho - 11/20/2021 Patient Name: SOPHIE HICKS Diagnostic Radiology ACCESSION EXAM DATE/TIME PROCEDURE ORDERING PROVIDER [id number] 11/20/2021 08:34 EDT CR Chest PA & LAT JORDAN RIGGS LEISA R. CPT code 35835 Reason For Exam (CR Chest PA & LAT) PRE-OP Report Clinical History: PRE-OP Comparison: 02/11/2021 Technique: PA and lateral radiographs were obtained of the chest. Findings: The lungs are clear with no acute infiltrate or effusion. The heart size and mediastinal contours are normal. Pulmonary vascularity is normal and there is no pneumothorax. The osseous structures are unremarkable. Impression: Lungs clear with no acute infiltrate or effusion. Report Dictated on --- Final --- Dictating Physician: MD MOROCHO YUN ROBERT Signed Date and Time: 11/20/2021 10:07 am Signed by: MD MOROCHO YUN ROBERT Transcribed Date and Time: 11/20/2021 10:08 [facility] Work Phone: Radiology Study observation (narrative) [facility] Work Phone: XR CHEST (2 VW)Ordered By: Jovana Morocho on 11-20-2021 [facility] Work Phone: CT LOWER EXTREMITY RIGHT WO CONTRASTon 10-21-2021 Patient Name: SOPHIE HICKS Computed Tomography ACCESSION EXAM DATE/TIME PROCEDURE ORDERING PROVIDER [id number] 10/21/2021 18:[address] Low Ext w/o Contrast 5803 -BUBBA SMITH Right CPT code 81490 Reason For Exam (CT Low Ext w/o Contrast Right) eval for tibiAL PLATEAU Report CT RIGHT KNEE CLINICAL INDICATION: Pain, rule out tibial plateau fracture TECHNIQUE: CT scan of the right knee without IV contrast. Multiplanar reformations. COMPARISON: Right knee radiographs, September,. FINDINGS: No acute fracture, dislocation or osseous destruction. Mild medial and patellofemoral joint space narrowing and marginal spurring. Very small joint effusion. Soft tissues grossly unremarkable. IMPRESSION: 1. No acute osseous abnormality. 2. Mild degenerative change and small joint effusion. Report Dictated on Workstation: [email or web address] --- Final --- Dictating Physician: MD LEAL WENDELL Signed Date and Time: 10/21/2021 9:01 pm Signed by: MD LEAL WENDELL Transcribed Date and Time: 10/21/2021 9:02 Wilman Greenwood MD - 10/21/2021 Patient Name: SOPHIE HICKS Computed Tomography ACCESSION EXAM DATE/TIME PROCEDURE ORDERING PROVIDER [id number] 10/21/2021 18:[address] Low Ext w/o Contrast 5803 -BUBBA SMITH Right CPT code 13172 Reason For Exam (CT Low Ext w/o Contrast Right) eval for tibiAL PLATEAU Report CT RIGHT KNEE CLINICAL INDICATION: Pain, rule out tibial plateau fracture TECHNIQUE: CT scan of the right knee without IV contrast. Multiplanar reformations. COMPARISON: Right knee radiographs, September,. FINDINGS: No acute fracture, dislocation or osseous destruction. Mild medial and patellofemoral joint space narrowing and marginal spurring. Very small joint effusion. Soft tissues grossly unremarkable. IMPRESSION: 1. No acute osseous abnormality. 2. Mild degenerative change and small joint effusion. Report Dictated on Workstation: [email or web address] --- Final --- Dictating Physician: MD LEAL WENDELL Signed Date and Time: 10/21/2021 9:01 pm Signed by: MD LEAL WENDELL Transcribed Date and Time: 10/21/2021 9:02 [facility] Work Phone: Radiology Study observation (narrative) [facility] Work Phone: CT LOWER EXTREMITY RIGHT WO CONTRASTOrdered By: Wilman Leal on 10-21-2021 [facility] Work Phone: CT LUMBAR SPINE WO CONTRASTo n 10-21-2021 Patient Name: SOPHIE HICKS Computed Tomography ACCESSION EXAM DATE/TIME PROCEDURE ORDERING PROVIDER [id number] 10/21/2021 21:[address] Spine Lumbar w/o 5803 -LUIS, BUBBA Contrast CPT code 59472 Reason For Exam (CT Spine Lumbar w/o Contrast) lower lumbar, sacral pain, s/p fall one week ago Report EXAMINATION: CT of the lumbar spine without intravenous contrast. EXAM DATE & TIME: 10/21/2021 9:50 PM EDT INDICATION: lower lumbar, sacral pain, s/p fall one week ago ADDITIONAL INFORMATION: 56-year-old male with lower lumbar spine pain after fall one week prior presents for evaluation COMPARISON: CT abdomen pelvis dated 11/01/2020 LIMITATIONS: None TECHNIQUE: Thin isotropic axial images were obtained through the lumbar region without intravenous contrast. Images were reformatted in coronal and sagittal projections using the raw CT data and were interpreted in conjunction with the axial images to render the findings listed below. FINDINGS: Alignment: Normal. Vertebrae: No evidence of acute fracture. No aggressive osseous lesions. There is a remote appearing deformity of the left L5 lamina, stable dating back to October 2020. Canal and foramina: No evidence of significant spinal canal or neural foraminal stenosis. Visible sacrum and pelvis: Normal. The presacral soft tissues are normal in appearance. IMPRESSION: No acute fracture or traumatic malalignment of the lower thoracic or lumbar spine. Computed Tomography Report Report Dictated on --- Final --- Dictating Physician: MD MICHAEL CHRISTOPHER Signed Date and Time: 10/21/2021 10:00 pm Signed by: MD MICHAEL CHRISTOPHER Transcribed Date and Time: 10/21/2021 10:[address] [facility] [place] [facility] Rohan Michael MD - 10/21/2021 Patient Name: SOPHIE HICKS Computed Tomography ACCESSION EXAM DATE/TIME PROCEDURE ORDERING PROVIDER [id number] 10/21/2021 21:[address] Spine Lumbar w/o 5803 -LUIS, BUBBA Contrast CPT code 61308 Reason For Exam (CT Spine Lumbar w/o Contrast) lower lumbar, sacral pain, s/p fall one week ago Report EXAMINATION: CT of the lumbar spine without intravenous contrast. EXAM DATE & TIME: 10/21/2021 9:50 PM EDT INDICATION: lower lumbar, sacral pain, s/p fall one week ago ADDITIONAL INFORMATION: 56-year-old male with lower lumbar spine pain after fall one week prior presents for evaluation COMPARISON: CT abdomen pelvis dated 11/01/2020 LIMITATIONS: None TECHNIQUE: Thin isotropic axial images were obtained through the lumbar region without intravenous contrast. Images were reformatted in coronal and sagittal projections using the raw CT data and were interpreted in conjunction with the axial images to render the findings listed below. FINDINGS: Alignment: Normal. Vertebrae: No evidence of acute fracture. No aggressive osseous lesions. There is a remote appearing deformity of the left L5 lamina, stable dating back to October 2020. Canal and foramina: No evidence of significant spinal canal or neural foraminal stenosis. Visible sacrum and pelvis: Normal. The presacral soft tissues are normal in appearance. IMPRESSION: No acute fracture or traumatic malalignment of the lower thoracic or lumbar spine. Computed Tomography Report Report Dictated on --- Final --- Dictating Physician: MD MICHAEL CHRISTOPHER Signed Date and Time: 10/21/2021 10:00 pm Signed by: MD MICHAEL CHRISTOPHER Transcribed Date and Time: 10/21/2021 10:01 [facility] Work Phone: Radiology Study observation (narrative) [facility] Work Phone: CT LUMBAR SPINE WO CONTRASTO rdered By: Rohan Michael on 10-21-2021 [facility] Work Phone: CT Low Ext w/o Contrast Righ ton 10-21-2021 CT Low Ext w/o Contrast Right Patient Na me: SOPHIE HICKS Computed Tomography ACCESSION EXAM DATE/TIME PROCEDURE ORDERING PROVIDER [id number] 10/21/2021 18:[address] Low Ext w/o Contrast 5803 -BUBBA SMITH Right CPT code 78436 Reason For Exam (CT Low Ext w/o Contrast Right) eval for tibiAL PLATEAU Report CT RIGHT KNEE CLINICAL INDICATION: Pain, rule out tibial plateau fracture TECHNIQUE: CT scan of the right knee without IV contrast. Multiplanar reformations. COMPARISON: Right knee radiographs, September,. FINDINGS: No acute fracture, dislocation or osseous destruction. Mild medial and patellofemoral joint space narrowing and marginal spurring. Very small joint effusion. Soft tissues grossly unremarkable. IMPRESSION: 1. No acute osseous abnormality. 2. Mild degenerative change and small joint effusion. Report Dictated on Workstation: [email or web address] Final Dictating Physician: MD LEAL WENDELL Signed Date and Time: 10/21/2021 9:01 pm Signed by: MD LEAL WENDELL Transcribed Date and Time: 10/21/2021 9:[address] [facility] [address] Spine Lumbar w/o Contrast on 10-21-2021 CT Spine Lumbar w/o Contrast Patient K[facility]a moe[id number] Computed Tomography ACCESSION EXAM DATE/TIME PROCEDURE ORDERING PROVIDER [id number] 10/21/2021 21:[address] Spine Lumbar w/o 5803 -BUBBA SMITH Contrast CPT code 70240 Reason For Exam (CT Spine Lumbar w/o Contrast) lower lumbar, sacral pain, s/p fall one week ago Report EXAMINATION: CT of the lumbar spine without intravenous contrast. EXAM DATE and TIME: 10/21/2021 9:50 PM EDT INDICATION: lower lumbar, sacral pain, s/p fall one week ago ADDITIONAL INFORMATION: 56-year-old male with lower lumbar spine pain after fall one week prior presents for evaluation COMPARISON: CT abdomen pelvis dated 11/01/2020 LIMITATIONS: None TECHNIQUE: Thin isotropic axial images were obtained through the lumbar region without intravenous contrast. Images were reformatted in coronal and sagittal projections using the raw CT data and were interpreted in conjunction with the axial images to render the findings listed below. FINDINGS: Alignment: Normal. Vertebrae: No evidence of acute fracture. No aggressive osseous lesions. There is a remote appearing deformity of the left L5 lamina, stable dating back to October 2020. Canal and foramina: No evidence of significant spinal canal or neural foraminal stenosis. Visible sacrum and pelvis: Normal. The presacral soft tissues are normal in appearance. IMPRESSION: No acute fracture or traumatic malalignment of the lower thoracic or lumbar spine. Computed Tomography Report Report Dictated on Final Dictating Physician: MD MICHAEL CHRISTOPHER Signed Date and Time: 10/21/2021 10:00 pm Signed by: MD MICHAEL CHRISTOPHER Transcribed Date and Time: 10/21/2021 10:01 [facility] ED Provider Noteon ED Provider Note [facility] ED eMERGENCY dEPARTMENT eNCOUnter Pt Name: Sophie Hicks Birthdate 1965 Date of evaluation: 10/21/2021 Provider: Bubba Smith MD CHIEF COMPLAINT Chief Complaint Patient presents with ? Groin Swelling ? Knee Pain HISTORY OF PRESENT ILLNESS (Location/Symptom, Timing/Onset, Context/Setting, Quality, Duration, Modifying Factors, Severity) Note limiting factors. HPI Sophie Hicks is a 56 y.o. male who presents to the emergency department right knee and low back pain. There mechanical fall a week ago had normal x-rays of his hyporexia pain since no numbness or weakness in the legs no other trauma no fevers. He can bear weight on the knee but with significant pain. Nursing Notes were reviewed. REVIEW OF SYSTEMS (2+ for level 4; 10+ for level 5) Review of Systems Constitutional: Negative for fatigue and fever. HENT: Negative for congestion and ear pain. Eyes: Negative for pain and discharge. Respiratory: Negative for cough and shortness of breath. Cardiovascular: Negative for chest pain and palpitations. Gastrointestinal: Negative for abdominal pain, diarrhea and vomiting. Genitourinary: Negative for dysuria and frequency. Skin: Negative for color change and rash. Neurological: Negative for dizziness and headaches. Psychiatric/Behavio ral: Negative for agitation and suicidal ideas. PAST MEDICAL HISTORY Past Medical History: Diagnosis Date ? Abdominal pain ? Atrial fibrillation (HCC) ? Back pain ? Benign essential HTN 01/29/2015 ? Blood circulation, collateral ? CAD (coronary artery disease) mild - dx on cath - neg stress ? Cerebral artery occlusion with cerebral infarction (HCC) ? Chronic kidney disease ? COPD (chronic obstructive pulmonary disease) (HCC) ? COVID-19 05/03 ? COVID-19 vaccine series completed 09/25/2020 Moderna ? CS (cervical spondylosis) 12/25/2004 CERVICAL SPINE DJD ? Difficulty sleeping ? Dizziness ? GERD (gastroesophageal reflux disease) ? History of colonic polyps 06/21/2013 repeat 2018 ? Hyperlipidemia ? Insomnia 08/15/2014 ? Joint pain, hip ? Joint pain, knee ? Memory difficulties ? Muscle weakness ? Peripheral polyneuropathy 09/30/2020 ? Shortness of breath at rest ? Sleep apnea ? Snoring ? SOBOE (shortness of breath on exertion) ? Type 2 diabetes mellitus 03/19/2021 SURGICAL HISTORY Past Surgical History: Procedure Laterality Date ? APPENDECTOMY ? CARDIAC CATHETERIZATION 12/17/2013 NORMAL CORONARY ARTERIES AND LVEF. ? COLONOSCOPY 2020 ? CYSTOSCOPY 10/26/2020 ? CYSTOSCOPY 11/19/2020 ? ENDOSCOPY, COLON, DIAGNOSTIC ? NECK SURGERY Posterior cervical fusion ? ROTATOR CUFF REPAIR Bilateral ? UPPER GASTROINTESTINAL ENDOSCOPY 01/24/2021 Dr. Cabello CURRENT MEDICATIONS Previous Medications ADVAIR DISKUS 250-50 MCG/ACT AEPB DISKUS INHALER Inhale 1 puff into the lungs 2 times daily ASPIRIN 81 MG CHEWABLE TABLET Take 81 mg by mouth daily ATORVASTATIN (LIPITOR) 80 MG TABLET Take 1 tablet by mouth nightly BACLOFEN (LIORESAL) 10 MG TABLET Take 10 mg by mouth 3 times daily prn BUPROPION (WELLBUTRIN SR) 150 MG EXTENDED RELEASE TABLET Take 150 mg by mouth 2 times daily CPAP MACHINE MISC 12 cm by Does not apply route Pt owns CYANOCOBALAMIN (B-12) [address] 1 tablet under the tongue daily DICYCLOMINE (BENTYL) 10 MG CAPSULE Take 1 capsule by mouth 3 times daily (before meals) ERGOCALCIFEROL (ERGOCALCIFEROL) 1.25 MG (05528 UT) CAPSULE Take 1 capsule by mouth once a week for [address] Vitamin Replacement Protocol ERYTHROMYCIN (ROMYCIN) 5 MG/GM OPHTHALMIC OINTMENT Apply to your eye 4 times a day FAMOTIDINE (PEPCID) 20 MG TABLET Take 1 tablet by mouth 2 times daily FUROSEMIDE (LASIX) 40 MG TABLET Take 80 mg by mouth 2 times daily GABAPENTIN (NEURONTIN) 300 MG CAPSULE take 1 capsule by mouth three times a day INSULIN GLARGINE (LANTUS SOLOSTAR) 100 UNIT/ML INJECTION PEN Inject 40 Units as directed at bedtime LEVOTHYROXINE (SYNTHROID) 50 MCG TABLET Take 50 mcg by mouth Daily METOLAZONE (ZAROXOLYN) 2.5 MG TABLET Take 1 tablet by mouth daily Take 30min before torsemide ONDANSETRON (ZOFRAN ODT) 4 MG DISINTEGRATING TABLET Take 1 tablet by mouth every 8 hours as needed for Nausea OXYBUTYNIN (DITROPAN XL) 10 MG EXTENDED RELEASE TABLET Take 1 tablet by mouth daily PANTOPRAZOLE (PROTONIX) 40 MG TABLET Take 1 tablet by mouth 2 times daily (with meals) POTASSIUM CHLORIDE (KLOR-CON) 20 MEQ PACKET Take 20 mEq by mouth as needed PREGABALIN (LYRICA) 150 MG CAPSULE Take 150 mg by mouth 2 times daily. PROMETHAZINE (PHENERGAN) 12.5 MG TABLET Take 12.5 mg by mouth every 8 hours as needed for Nausea SENNOSIDES-DOCUSATE SODIUM (SENOKOT-S) 8.6-50 MG TABLET Take 1 tablet by mouth daily as needed for Constipation SULFAMETHOXAZOLE-TR IMETHOPRIM (BACTRIM DS;SEPTRA DS) 800-160 MG PER TABLET Take 1 tablet by mouth three times a week TAMSULOSIN (FLOMAX) 0.4 MG C (more content not included)... Normal [facility] [employer] [facility] Glucose,Bedsideon 10-21-2021 Glucose [Mass/Vol] 83 mg/dL Normal 70-100 [facility] Comment on above: Result Comment: Test performed by glucose meter. Results may be 10%-15% lower than serum/plasma values. (CLIA ID [id number]) Performed By: #### B GLU ####[facility] [address]fo[address] [place] [address] POCT GlucoseOrdered By: Valerie Garcia on 10-21-2021 Glucose [Mass/Vol] 83 mg/dL 70 - 100 mg/dL [facility] Work Phone: Comment on above: Test performed by gl ucose meter. Results may be 10%-15% lower than serum/plasma values. (CLIA ID [id number]) [facility] Work Phone: POCT Glucoseon 10-21-2021 Test [facility] by [facility], [address] [place], [place] [id number] [place] [address] LAB CR Ankle 3+ Views Righton CR Ankle 3+ Views Right Patient Name: SOPHIE HICKS Diagnostic Radiology ACCESSION EXAM DATE/TIME PROCEDURE ORDERING PROVIDER [id number] 10/03/2021 00:36 EDT CR Ankle 3+ Views Right [id number] -KEKE, JULIANNE CPT code 25984 Reason For Exam (CR Ankle 3+ Views Right) fall with pain and unable to bear weight Report RIGHT ANKLE CLINICAL INDICATION: Pain after trauma AP, lateral, and oblique plain film views of the right ankle were obtained. COMPARISON: Tibia and fibula films performed the same day. FINDINGS: No fracture or dislocation of the right ankle is identified. The ankle mortise is intact. There is no abnormal soft tissue swelling or radiopaque foreign body seen. There is mild degenerative spurring of the calcaneus and the visualized portion of the tarsal bones. IMPRESSION: No fracture or dislocation of the right ankle is identified. Report Dictated on Final Dictating Physician: MD SEGURA JONATHAN R Signed Date and Time: 10/03/2021 0:49 am Signed by: MD SEGURA JONATHAN R Transcribed Date and Time: 10/03/2021 0:51 Normal [facility] CR Femur 2+ Views Righton CR Femur 2+ Views Right Patient Name: SOPHIE HICKS Diagnostic Radiology ACCESSION EXAM DATE/TIME PROCEDURE ORDERING PROVIDER [id number] 10/03/2021 00:38 EDT CR Femur 2+ Views Right [id number] -TODBE, JULIANNE n CPT code 86504 Reason For Exam (CR Femur 2+ Views Right n) fall Report RIGHT FEMUR CLINICAL INDICATION: Pain after fall AP and lateral plain film views of the right femur were obtained. COMPARISON: None FINDINGS: No fracture or dislocation of the right femur is identified. There is no abnormal soft tissue swelling or radiopaque foreign body seen. IMPRESSION: Negative plain film examination of the right femur. Report Dictated on Final Dictating Physician: MD SEGURA JONATHAN R Signed Date and Time: 10/03/2021 0:45 am Signed by: MD SEGURA JONATHAN R Transcribed Date and Time: 10/03/2021 0:47 Normal [facility] CR Hip w/ Pelvis 2 or 3 View s Righton 10-03-2021 CR Hip w/ Pelvis 2 or 3 View s Right Patient Name: SOPHIE HICKS Diagnostic Radiology ACCESSION EXAM DATE/TIME PROCEDURE ORDERING PROVIDER [id number] 10/03/2021 00:37 EDT CR Hip w/ Pelvis 2 or 3 [id number] -KIBE, JULIANNE Views Right n CPT code 12942 Reason For Exam (CR Hip w/ Pelvis 2 or 3 Views Right n) fall with pain Report RIGHT HIP CLINICAL INDICATION: Right hip pain A single AP view of the pelvis followed by AP and lateral views of the right hip were obtained. COMPARISON: CT abdomen and pelvis dated 06/15/2021 FINDINGS: No fracture or dislocation of the pelvis or right hip is identified. Mild loss of joint space and acetabular spurring is noted within the left and right hip joints. The sacroiliac joints appear grossly unremarkable. No lytic or blastic bony lesions are seen. There are metallic clips within the prostate, as noted on the recent CT of the abdomen and pelvis. IMPRESSION: No fracture or dislocation of the pelvis or right hip is identified. Mild osteoarthritis of the bilateral hips. Report Dictated on Final Dictating Physician: MD SEGURA JONATHAN R Signed Date and Time: 10/03/2021 0:47 am Signed by: MD SEGURA JONATHAN R Transcribed Date and Time: 10/03/2021 0:48 Normal [facility] CR Knee 3 Views Righton 09-12 CR Knee 3 Views Right Patient Name: SOPHIE HICKS Diagnostic Radiology ACCESSION EXAM DATE/TIME PROCEDURE ORDERING PROVIDER [id number] 10/02/2021 23:51 EDT CR Knee 3 Views Right [id number] -KIBE JULIANNE CPT code 55734 Reason For Exam (CR Knee 3 Views Right) fall with a pop Report RIGHT KNEE CLINICAL INDICATION: Pain after trauma AP, lateral, and tunnel plain film views of the right knee were obtained. COMPARISON: 09/19/2021 FINDINGS: No fracture or dislocation of the right knee is identified. No joint effusion is seen on the lateral view. Mild degenerative spurring of the patellofemoral compartment is noted. There is also mild degenerative spurring of the tibial spines. There is no abnormal soft tissue swelling or radiopaque foreign body. IMPRESSION: No fracture or dislocation of the right knee is identified. Mild osteoarthritis of the right knee, similar to the prior examination. Report Dictated on Final Dictating Physician: MD SEGURA JONATHAN R Signed Date and Time: 10/03/2021 0:47 am Signed by: MD SEGURA JONATHAN R Transcribed Date and Time: 10/03/2021 0:48 Normal [facility] CR Tibia/Fibula 2 Views Rig ton 10-03-2021 CR Tibia/Fibula 2 Views Right Patient Na me: SOPHIE HICKS Diagnostic Radiology ACCESSION EXAM DATE/TIME PROCEDURE ORDERING PROVIDER [id number] 10/03/2021 00:39 EDT CR Tibia/Fibula 2 Views [id number] -KIBE, JULIANNE Right CPT code 29085 Reason For Exam (CR Tibia/Fibula 2 Views Right) fall with pain and unable to bear weight Report RIGHT TIBIA AND FIBULA CLINICAL INDICATION: Pain after trauma AP and lateral plain film views of the right tibia and fibula were obtained. COMPARISON: Knee films performed the same day FINDINGS: No fracture or dislocation of the right tibia or fibula is identified. There is no abnormal soft tissue swelling or radiopaque foreign body seen. Mild degenerative spurring of the calcaneus and tarsal bones is noted. IMPRESSION: No fracture or dislocation of the right tibia or fibula is identified. Report Dictated on Final Dictating Physician: MD SEGURA JONATHAN R Signed Date and Time: 10/03/2021 0:49 am Signed by: MD SEGURA JONATHAN R Transcribed Date and Time: 10/03/2021 0:50 Normal [facility] ED Provider Noteon ED Provider Note Mandie [facility] ED EMERGENCY DEPARTMENT ENCOUNTER Pt Name: Sophie Hicks Birthdate 1965 Date of evaluation: 10/02/2021 Provider: Julianne Welch MD CHIEF COMPLAINT Chief Complaint Patient presents with ? Fall ? Leg Injury ? Hip Pain HISTORY OF PRESENT ILLNESS (Location/Symptom, Timing/Onset, Context/Setting, Quality, Duration, Modifying Factors, Severity) Note limiting factors. I wore a surgical mask for the entirety of this encounter. HPI Sophie Hicks is a 55 y.o. male with a past medical history significant for congestive heart failure, type 2 diabetes, nephrotic syndrome, and coronary artery disease with congestive heart failure who presents to the emergency department for evaluation for mechanical fall. Patient states was getting out of the truck to help when he missed a step and fell onto his right side. He states he immediately felt a pop and could barely bear weight on the leg. He states as a result he came to the emergency department for evaluation. Patient endorses pain in the hip and ankle areas. He denies coolness to touch of the extremity, numbness or tingling, or color change. She denies head trauma during the fall. He denies lightheadedness, chest pain, or focal neurologic deficits prior to or after the fall. Patient also denies loss of consciousness. Nursing Notes were reviewed. REVIEW OF SYSTEMS (2+ for level 4; 10+ for level 5) Review of Systems Constitutional: Negative for activity change, appetite change and diaphoresis. HENT: Negative for congestion, facial swelling, sinus pressure, sinus pain, sneezing and trouble swallowing. Eyes: Negative for pain, discharge and visual disturbance. Respiratory: Negative for cough, chest tightness and shortness of breath. Cardiovascular: Negative for chest pain and palpitations. Gastrointestinal: Negative for abdominal pain, nausea and vomiting. Genitourinary: Negative for decreased urine volume, dysuria, hematuria and urgency. Musculoskeletal: Positive for arthralgias (Right hip and ankle). Negative for back pain, neck pain and neck stiffness. Skin: Negative for color change, pallor and rash. Neurological: Negative for dizziness, light-headedness and numbness. Psychiatric/Behavio ral: Negative for confusion and hallucinations. The patient is not nervous/anxious. PAST MEDICAL HISTORY Past Medical History: Diagnosis Date ? Abdominal pain ? Atrial fibrillation (HCC) ? Back pain ? Benign essential HTN 01/29/2015 ? Blood circulation, collateral ? CAD (coronary artery disease) mild - dx on cath - neg stress ? Cerebral artery occlusion with cerebral infarction (HCC) ? Chronic kidney disease ? COPD (chronic obstructive pulmonary disease) (HCC) ? COVID-19 05/03 ? COVID-19 vaccine series completed 09/25/2020 Moderna ? CS (cervical spondylosis) 12/25/2004 CERVICAL SPINE DJD ? Difficulty sleeping ? Dizziness ? GERD (gastroesophageal reflux disease) ? History of colonic polyps 06/21/2013 repeat 2019 ? Hyperlipidemia ? Insomnia 08/15/2014 ? Joint pain, hip ? Joint pain, knee ? Memory difficulties ? Muscle weakness ? Peripheral polyneuropathy 09/30/2020 ? Shortness of breath at rest ? Sleep apnea ? Snoring ? SOBOE (shortness of breath on exertion) ? Type 2 diabetes mellitus 03/19/2021 SURGICAL HISTORY Past Surgical History: Procedure Laterality Date ? APPENDECTOMY ? CARDIAC CATHETERIZATION 12/17/2013 NORMAL CORONARY ARTERIES AND LVEF. ? COLONOSCOPY 2020 ? CYSTOSCOPY 10/26/2020 ? CYSTOSCOPY 11/19/2020 ? ENDOSCOPY, COLON, DIAGNOSTIC ? NECK SURGERY Posterior cervical fusion ? ROTATOR CUFF REPAIR Bilateral ? UPPER GASTROINTESTINAL ENDOSCOPY 01/24/2021 Dr. Cabello CURRENT MEDICATIONS Previous Medications ADVAIR DISKUS 250-50 MCG/ACT AEPB DISKUS INHALER Inhale 1 puff into the lungs 2 times daily ASPIRIN 81 MG CHEWABLE TABLET Take 81 mg by mouth daily ATORVASTATIN (LIPITOR) 80 MG TABLET Take 1 tablet by mouth nightly BACLOFEN (LIORESAL) 10 MG TABLET Take 10 mg by mouth 3 times daily prn BUPROPION (WELLBUTRIN SR) 150 MG EXTENDED RELEASE TABLET Take 150 mg by mouth 2 times daily CPAP MACHINE MISC 12 cm by Does not apply route Pt owns CYANOCOBALAMIN (B-12) [address] 1 tablet under the tongue daily DICYCLOMINE (BENTYL) 10 MG CAPSULE Take 1 capsule by mouth 3 times daily (before meals) ERGOCALCIFEROL (ERGOCALCIFEROL) 1.25 MG (94267 UT) CAPSULE Take 1 capsule by mouth once a week for [address] Vitamin Replacement Protocol ERYTHROMYCIN (ROMYCIN) 5 MG/GM OPHTHALMIC OINTMENT Apply to your eye 4 times a day FAMOTIDINE (PEPCID) 20 MG TABLET Take 1 tablet by mouth 2 times daily FUROSEMIDE (LASIX) 40 MG TABLET Take 80 mg by mouth 2 times daily GABAPENTIN (NEURONTIN) 300 MG CAPSULE take 1 capsule by mouth three times a day INSULIN GLARGINE (LANTUS SOLOSTAR) 100 UNIT/ML INJECTION PEN Inject 40 Units as directed at bedtime LEVOTHYROX (more content not included)... Normal [facility] XR ANKLE RIGHT (MIN 3 VIEWS) on 10-03-2021 Patient Name: SOPHIE HICKS Diagnostic Radiology ACCESSION EXAM DATE/TIME PROCEDURE ORDERING PROVIDER [id number] 10/03/2021 00:36 EDT CR Ankle 3+ Views Right [id number] -KIBE, JULIANNE CPT code 96673 Reason For Exam (CR Ankle 3+ Views Right) fall with pain and unable to bear weight Report RIGHT ANKLE CLINICAL INDICATION: Pain after trauma AP, lateral, and oblique plain film views of the right ankle were obtained. COMPARISON: Tibia and fibula films performed the same day. FINDINGS: No fracture or dislocation of the right ankle is identified. The ankle mortise is intact. There is no abnormal soft tissue swelling or radiopaque foreign body seen. There is mild degenerative spurring of the calcaneus and the visualized portion of the tarsal bones. IMPRESSION: No fracture or dislocation of the right ankle is identified. Report Dictated on --- Final --- Dictating Physician: MD SEGURA JONATHAN R Signed Date and Time: 10/03/2021 0:49 am Signed by: MD SEGURA JONATHAN R Transcribed Date and Time: 10/03/2021 0:51 [facility] Eduard Segura MD - 10/03/2021 Patient Name: SOPHIE HICKS Diagnostic Radiology ACCESSION EXAM DATE/TIME PROCEDURE ORDERING PROVIDER [id number] 10/03/2021 00:36 EDT CR Ankle 3+ Views Right [id number] -KIBE, JULIANNE CPT code 24449 Reason For Exam (CR Ankle 3+ Views Right) fall with pain and unable to bear weight Report RIGHT ANKLE CLINICAL INDICATION: Pain after trauma AP, lateral, and oblique plain film views of the right ankle were obtained. COMPARISON: Tibia and fibula films performed the same day. FINDINGS: No fracture or dislocation of the right ankle is identified. The ankle mortise is intact. There is no abnormal soft tissue swelling or radiopaque foreign body seen. There is mild degenerative spurring of the calcaneus and the visualized portion of the tarsal bones. IMPRESSION: No fracture or dislocation of the right ankle is identified. Report Dictated on --- Final --- Dictating Physician: MD SEGURA JONATHAN R Signed Date and Time: 10/03/2021 0:49 am Signed by: MD SEGURA JONATHAN R Transcribed Date and Time: 10/03/2021 0:51 [facility] Work Phone: XR ANKLE RIGHT (MIN 3 VIEWS) Ordered By: Eduard Segura on 10-03-2021 [facility] Work Phone: XR FEMUR RIGHT (MIN 2 VIEWS) on 10-03-2021 Patient Name: SOPHIE HICKS Diagnostic Radiology ACCESSION EXAM DATE/TIME PROCEDURE ORDERING PROVIDER [id number] 10/03/2021 00:38 EDT CR Femur 2+ Views Right [id number] -JULIANNE WELCH CPT code 06484 Reason For Exam (CR Femur 2+ Views Right n) fall Report RIGHT FEMUR CLINICAL INDICATION: Pain after fall AP and lateral plain film views of the right femur were obtained. COMPARISON: None FINDINGS: No fracture or dislocation of the right femur is identified. There is no abnormal soft tissue swelling or radiopaque foreign body seen. IMPRESSION: Negative plain film examination of the right femur. Report Dictated on --- Final --- Dictating Physician: MD SEGURA JONATHAN R Signed Date and Time: 10/03/2021 0:45 am Signed by: MD SEGURA JONATHAN R Transcribed Date and Time: 10/03/2021 0:47 [facility] Eduard Segura MD - 10/03/2021 Patient Name: SOPHIE HICKS Diagnostic Radiology ACCESSION EXAM DATE/TIME PROCEDURE ORDERING PROVIDER [id number] 10/03/2021 00:38 EDT CR Femur 2+ Views Right [id number] -KIBE, JULIANNE n CPT code 70213 Reason For Exam (CR Femur 2+ Views Right n) fall Report RIGHT FEMUR CLINICAL INDICATION: Pain after fall AP and lateral plain film views of the right femur were obtained. COMPARISON: None FINDINGS: No fracture or dislocation of the right femur is identified. There is no abnormal soft tissue swelling or radiopaque foreign body seen. IMPRESSION: Negative plain film examination of the right femur. Report Dictated on Workstation: [id number] --- Final --- Dictating Physician: MD SEGURA JONATHAN R Signed Date and Time: 10/03/2021 0:45 am Signed by: MD SEGURA JONATHAN R Transcribed Date and Time: 10/03/2021 0:47 [facility] Work Phone: [facility] Work Phone: XR HIP RIGHT (2-3 VIEWS)on 0 10-03-2021 Patient Name: SOPHIE HICKS Diagnostic Radiology ACCESSION EXAM DATE/TIME PROCEDURE ORDERING PROVIDER [id number] 10/03/2021 00:37 EDT CR Hip w/ Pelvis 2 or 3 [id number] -KIBE, JULIANNE Views Right n CPT code 20102 Reason For Exam (CR Hip w/ Pelvis 2 or 3 Views Right n) fall with pain Report RIGHT HIP CLINICAL INDICATION: Right hip pain A single AP view of the pelvis followed by AP and lateral views of the right hip were obtained. COMPARISON: CT abdomen and pelvis dated 06/15/2021 FINDINGS: No fracture or dislocation of the pelvis or right hip is identified. Mild loss of joint space and acetabular spurring is noted within the left and right hip joints. The sacroiliac joints appear grossly unremarkable. No lytic or blastic bony lesions are seen. There are metallic clips within the prostate, as noted on the recent CT of the abdomen and pelvis. IMPRESSION: No fracture or dislocation of the pelvis or right hip is identified. Mild osteoarthritis of the bilateral hips. Report Dictated on Workstation: [employer] --- Final --- Dictating Physician: MD SEGURA JONATHAN R Signed Date and Time: 10/03/2021 0:47 am Signed by: MD SEGURA JONATHAN R Transcribed Date and Time: 10/03/2021 0:48 [facility] Eduard Segura MD - 10/03/2021 Patient Name: SOPHIE HICKS Diagnostic Radiology ACCESSION EXAM DATE/TIME PROCEDURE ORDERING PROVIDER [id number] 10/03/2021 00:37 EDT CR Hip w/ Pelvis 2 or 3 [id number] -KIBE, JULIANNE Views Right n CPT code 51162 Reason For Exam (CR Hip w/ Pelvis 2 or 3 Views Right n) fall with pain Report RIGHT HIP CLINICAL INDICATION: Right hip pain A single AP view of the pelvis followed by AP and lateral views of the right hip were obtained. COMPARISON: CT abdomen and pelvis dated 06/15/2021 FINDINGS: No fracture or dislocation of the pelvis or right hip is identified. Mild loss of joint space and acetabular spurring is noted within the left and right hip joints. The sacroiliac joints appear grossly unremarkable. No lytic or blastic bony lesions are seen. There are metallic clips within the prostate, as noted on the recent CT of the abdomen and pelvis. IMPRESSION: No fracture or dislocation of the pelvis or right hip is identified. Mild osteoarthritis of the bilateral hips. Report Dictated on --- Final --- Dictating Physician: MD SEGURA JONATHAN R Signed Date and Time: 10/03/2021 0:47 am Signed by: MD SEGURA JONATHAN R Transcribed Date and Time: 10/03/2021 0:48 [facility] Work Phone: [facility] Work Phone: XR KNEE RIGHT (3 VIEWS)on Patient Name: SOPHIE HICKS Diagnostic Radiology ACCESSION EXAM DATE/TIME PROCEDURE ORDERING PROVIDER [id number] 10/02/2021 23:51 EDT CR Knee 3 Views Right [id number] -KIBE, JULIANNE CPT code 80935 Reason For Exam (CR Knee 3 Views Right) fall with a pop Report RIGHT KNEE CLINICAL INDICATION: Pain after trauma AP, lateral, and tunnel plain film views of the right knee were obtained. COMPARISON: 09/19/2021 FINDINGS: No fracture or dislocation of the right knee is identified. No joint effusion is seen on the lateral view. Mild degenerative spurring of the patellofemoral compartment is noted. There is also mild degenerative spurring of the tibial spines. There is no abnormal soft tissue swelling or radiopaque foreign body. IMPRESSION: No fracture or dislocation of the right knee is identified. Mild osteoarthritis of the right knee, similar to the prior examination. Report Dictated on --- Final --- Dictating Physician: MD SEGURA JONATHAN R Signed Date and Time: 10/03/2021 0:47 am Signed by: MD SEGURA JONATHAN R Transcribed Date and Time: 10/03/2021 0:48 [facility] Eduard Segura MD - 10/03/2021 Patient Name: SOPHIE HICKS Diagnostic Radiology ACCESSION EXAM DATE/TIME PROCEDURE ORDERING PROVIDER [id number] 10/02/2021 23:51 EDT CR Knee 3 Views Right [id number] -KIBE, JULIANNE CPT code 43784 Reason For Exam (CR Knee 3 Views Right) fall with a pop Report RIGHT KNEE CLINICAL INDICATION: Pain after trauma AP, lateral, and tunnel plain film views of the right knee were obtained. COMPARISON: 09/19/2021 FINDINGS: No fracture or dislocation of the right knee is identified. No joint effusion is seen on the lateral view. Mild degenerative spurring of the patellofemoral compartment is noted. There is also mild degenerative spurring of the tibial spines. There is no abnormal soft tissue swelling or radiopaque foreign body. IMPRESSION: No fracture or dislocation of the right knee is identified. Mild osteoarthritis of the right knee, similar to the prior examination. Report Dictated on --- Final --- Dictating Physician: MD SEGURA JONATHAN R Signed Date and Time: 10/03/2021 0:47 am Signed by: MD SEGURA JONATHAN R Transcribed Date and Time: 10/03/2021 0:48 [facility]: [facility] Work Phone: XR TIBIA FIBULA RIGHT (2 VIE WS)on 10-03-2021 Patient Name: SOPHIE HICKS Diagnostic Radiology ACCESSION EXAM DATE/TIME PROCEDURE ORDERING PROVIDER [id number] 10/03/2021 00:39 EDT CR Tibia/Fibula 2 Views [id number] -KIBE, JULIANNE Right CPT code 54998 Reason For Exam (CR Tibia/Fibula 2 Views Right) fall with pain and unable to bear weight Report RIGHT TIBIA AND FIBULA CLINICAL INDICATION: Pain after trauma AP and lateral plain film views of the right tibia and fibula were obtained. COMPARISON: Knee films performed the same day FINDINGS: No fracture or dislocation of the right tibia or fibula is identified. There is no abnormal soft tissue swelling or radiopaque foreign body seen. Mild degenerative spurring of the calcaneus and tarsal bones is noted. IMPRESSION: No fracture or dislocation of the right tibia or fibula is identified. Report Dictated on --- Final --- Dictating Physician: MD SEGURA JONATHAN R Signed Date and Time: 10/03/2021 0:49 am Signed by: MD SEGURA JONATHAN R Transcribed Date and Time: 10/03/2021 0:50 [facility] Eduard Segura MD - 10/03/2021 Patient Name: SOPHIE HICKS Diagnostic Radiology ACCESSION EXAM DATE/TIME PROCEDURE ORDERING PROVIDER [id number] 10/03/2021 00:39 EDT CR Tibia/Fibula 2 Views [id number] -KIBE, JULIANNE Right CPT code 72175 Reason For Exam (CR Tibia/Fibula 2 Views Right) fall with pain and unable to bear weight Report RIGHT TIBIA AND FIBULA CLINICAL INDICATION: Pain after trauma AP and lateral plain film views of the right tibia and fibula were obtained. COMPARISON: Knee films performed the same day FINDINGS: No fracture or dislocation of the right tibia or fibula is identified. There is no abnormal soft tissue swelling or radiopaque foreign body seen. Mild degenerative spurring of the calcaneus and tarsal bones is noted. IMPRESSION: No fracture or dislocation of the right tibia or fibula is identified. Report Dictated on --- Final --- Dictating Physician: MD SEGURA JONATHAN R Signed Date and Time: 10/03/2021 0:49 am Signed by: MD SEGURA JONATHAN R Transcribed Date and Time: 10/03/2021 0:50 [facility] Work Phone: [facility] Work Phone: No Panel Informationon 10-02 Radiology Study observation (narrative) [facility] Work Phone: CR Knee 1 or 2 Views Bilater lise 09-19-2021 CR Knee 1 or 2 Views Bilateral Patient Name: SOPHIE HICKS Diagnostic Radiology ACCESSION EXAM DATE/TIME PROCEDURE ORDERING PROVIDER [id number] 09/19/2021 08:16 EDT CR Knee 1 or 2 Views MD ANA, HAMZAH Bilateral MERRY CPT code 02747 Reason For Exam (CR Knee 1 or 2 Views Bilateral) PAIN Report BILATERAL KNEES, 4 VIEWS, WEIGHTBEARING: CLINICAL INDICATION: Bilateral knee pain COMPARISON: No prior studies are available for comparison. Lateral, sunrise and standing tunnel and frontal views of the right knee were obtained. The bone density appears normal. No fracture or dislocation is noted. There is mild medial compartment narrowing. There are no significant soft tissue abnormalities. No joint effusion is appreciated. Lateral, sunrise and standing tunnel and frontal views of the left knee were obtained. The bone density appears normal. No fracture or dislocation is noted. There is medial compartment narrowing and marginal spurring as well as spurring of the under surface of the patella. There are no significant soft tissue abnormalities. No joint effusion is appreciated. IMPRESSION: Arthritic changes. No acute process. Report Dictated on Final Dictating Physician: DO DE LA GARZA ALFRED Signed Date and Time: 09/20/2021 8:02 am Signed by: DO DE LA GARZA ALFRED Transcribed Date and Time: 09/20/2021 8:04 Normal [facility] CR Knee Standing Bilateralon 09-19-2021 CR Knee Standing Bilateral Patient Name: SOPHIE HICKS Diagnostic Radiology ACCESSION EXAM DATE/TIME PROCEDURE ORDERING PROVIDER [id number] 09/19/2021 08:16 EDT CR Knee Standing AP MD ANA, HAMZAH Bilateral WILBERTASEN CPT code 70086 Reason For Exam (CR Knee Standing AP Bilateral) PAIN Report BILATERAL KNEES, 4 VIEWS, WEIGHTBEARING: CLINICAL INDICATION: Bilateral knee pain COMPARISON: No prior studies are available for comparison. Lateral, sunrise and standing tunnel and frontal views of the right knee were obtained. The bone density appears normal. No fracture or dislocation is noted. There is mild medial compartment narrowing. There are no significant soft tissue abnormalities. No joint effusion is appreciated. Lateral, sunrise and standing tunnel and frontal views of the left knee were obtained. The bone density appears normal. No fracture or dislocation is noted. There is medial compartment narrowing and marginal spurring as well as spurring of the under surface of the patella. There are no significant soft tissue abnormalities. No joint effusion is appreciated. IMPRESSION: Arthritic changes. No acute process. Report Dictated on Final Dictating Physician: DO DE LA GARZA ALFRED Signed Date and Time: 09/20/2021 8:02 am Signed by: DO DE LA GARZA ALFRED Transcribed Date and Time: 09/20/2021 8:03 Normal [facility] CR Knee 1 or 2 Views Lefton 09-06-2021 CR Knee 1 or 2 Views Left Patient Name: SOPHIE HICKS Diagnostic Radiology ACCESSION EXAM DATE/TIME PROCEDURE ORDERING PROVIDER [id number] 09/06/2021 09:09 EDT CR Knee 1 or 2 Views JIM GRIERWILIAM Left CPT code 34966 Reason For Exam (CR Knee 1 or 2 Views Left) left knee pain Report LEFT KNEE CLINICAL INDICATION: Pain AP and lateral plain film views of the left knee were obtained. COMPARISON: None FINDINGS: No acute displaced fracture or dislocation. Moderate joint effusion. Enthesopathy at the quadriceps insertion at the upper pole of the patella. Joint space narrowing and osteophytic spurring within the medial and patellofemoral compartments. IMPRESSION: Medial and patellofemoral compartment osteoarthritis. Moderate joint effusion. Report Dictated on Final Dictating Physician: MD URBINA NEIL Signed Date and Time: 09/08/2021 10:12 pm Signed by: MD URBINA NEIL Transcribed Date and Time: 09/08/2021 10:13 Normal [facility] CBCon 06-15-2021 Hematocrit (Bld) [Volume fraction] 36.8 % Low 40.0 - 52.0 % [facility] Hemoglobin.gastrointestinal spec 1 Ql (Stl) 12.6 g/dL Low 13.0 - 18.0 g/dL [facility] Interpretation and review of laboratory results Abnormal [facility] MCH (RBC) [Entitic mass] 28.1 pg 26. 0 - 34.0 pg [facility] MCHC (RBC) [Mass/Vol] 34.3 % 32.0 - 36.0 % [facility] MCV (RBC) [Entitic vol] 81.9 fL 80.0 - 98.0 fL [facility] Platelet distribution width (Bld) [Ratio] 14.4 % 11.5 - 14.5 % [facility] Platelet mean volume (Bld) [Entitic vol] 6.3 fL Low 7.4 - 10.4 fL [facility] Platelets (Bld) [#/Vol] 198 10*3/uL 140 - 440 10*3/uL [facility] RBC (Bld) [#/Vol] 4.49 10*6/uL 4.40 - 5.90 10*6/uL [facility] WBC (Bld) [#/Vol] 8.9 10*3/uL 3.6 - 10.7 10*3/uL [facility] Test Performed by [facility], [address], [place], [place] [address] [facility] CT Abdomen Pelvis Wo Contras ton 06-15-2021 Patient Name: SOPHIE HICKS Computed Tomography ACCESSION EXAM DATE/TIME PROCEDURE ORDERING PROVIDER [id number] 06/15/2021 19:[address] Abdomen/Pelvis (No [id number] -[place], PO, No IV) [facility] CPT code 77337 Reason For Exam (CT Abdomen/Pelvis (No PO, No IV)) epigastric pain, reports history of abdominal hernia Report CT abdomen and pelvis without contrast HISTORY: Epigastric pain Protocol: 3 mm axial images without intravenous contrast COMPARISON: 11/26/2020 The liver, gallbladder, spleen, pancreas, adrenals, and kidneys are normal. No evidence of bowel inflammation or bowel obstruction. No free fluid. Bladder is unremarkable. IMPRESSION: Normal examination. Report Dictated on --- Final --- Dictating Physician: MD KRUSE MALAY Signed Date and Time: 06/15/2021 7:20 pm Signed by: MD KRUSE MALAY Transcribed Date and Time: 06/15/2021 7:21 [facility] Artem Kruse MD - 06/15/2021 Patient Name: SOPHIE HICKS Computed Tomography ACCESSION EXAM DATE/TIME PROCEDURE ORDERING PROVIDER [id number] 06/15/2021 19:[address] Abdomen/Pelvis (No [id number] -[place], PO, No IV) [facility] CPT code 66601 Reason For Exam (CT Abdomen/Pelvis (No PO, No IV)) epigastric pain, reports history of abdominal hernia Report CT abdomen and pelvis without contrast HISTORY: Epigastric pain Protocol: 3 mm axial images without intravenous contrast COMPARISON: 11/26/2020 The liver, gallbladder, spleen, pancreas, adrenals, and kidneys are normal. No evidence of bowel inflammation or bowel obstruction. No free fluid. Bladder is unremarkable. IMPRESSION: Normal examination. Report Dictated on --- Final --- Dictating Physician: MD KRUSE MALAY Signed Date and Time: 06/15/2021 7:20 pm Signed by: MD KRUSE MALAY Transcribed Date and Time: 06/15/2021 7:21 [facility] Work Phone: Radiology Study observation (narrative) [facility] Work Phone: CT Abdomen Pelvis Wo Contras tOrdered By: Artem Kruse on 06-15-2021 [facility] Work Phone: CT Abdomen/Pelvis w/o Contra ston 06-15-2021 CT Abdomen/Pelvis w/o Contrast [facility]: [id number] ACCESSION EXAM DATE/TIME PROCEDURE ORDERING PROVIDER [id number] 06/15/2021 19:[address] Abdomen/Pelvis (No [id number] -[place], PO, No IV) [facility] CPT code 87424 Reason For Exam (CT Abdomen/Pelvis (No PO, No IV)) epigastric pain, reports history of abdominal hernia Report CT abdomen and pelvis without contrast HISTORY: Epigastric pain Protocol: 3 mm axial images without intravenous contrast COMPARISON: 11/26/2020 The liver, gallbladder, spleen, pancreas, adrenals, and kidneys are normal. No evidence of bowel inflammation or bowel obstruction. No free fluid. Bladder is unremarkable. IMPRESSION: Normal examination. Report Dictated on Final Dictating Physician: MD KRUSE MALAY Signed Date and Time: 06/15/2021 7:20 pm Signed by: MD KRUSE MALAY Transcribed Date and Time: 06/15/2021 7:21 Normal [facility] Comp Metabolic Panelon 06-15 Calcium [Mass/Vol] 8.7 mg/dL Normal 8.4-10.4 [facility] Comment on above: Performed By: #### H EMDF, RENL3, TPUR, CRTUR, CUA2 #### [facility] [address] [place] [address] ALP [Catalytic activity/Vol] 83 U/L Normal 38-126 [facility] Comment on above: Performed By: #### H EMDF, RENL3, TPUR, CRTUR, CUA2 #### [facility] [address] [place] [address] ALT [Catalytic activity/Vol] 23 U/L Normal 0-49 [facility] Comment on above: Result Comment: The ALT test is performed by an updated assay method. Please note that the reference intervals have been changed and are now sex specific. Performed By: #### H EMDF, RENL3, TPUR, CRTUR, CUA2 #### [facility] [address] [place] [address] Anion gap [Moles/Vol] 8 mmol/L Normal 3-13 [facility] Comment on above: Performed By: #### H EMDF, RENL3, TPUR, CRTUR, CUA2 #### [facility] [address] [place] [address] AST [Catalytic activity/Vol] 37 U/L Normal 15-46 [facility] Comment on above: Performed By: #### H EMDF, RENL3, TPUR, CRTUR, CUA2 #### [facility] [address] [place] [address] Bilirubin [Mass/Vol] 0.8 mg/dL Normal 0.2-1.3 [facility] Comment on above: Performed By: #### H EMDF, RENL3, TPUR, CRTUR, CUA2 #### [facility] [address] [place] [address] CO2 [Moles/Vol] 27 mmol/L Normal 22-30 [facility] Comment on above: Performed By: #### H EMDF, RENL3, TPUR, CRTUR, CUA2 #### [facility] [address] [place] [address] Creatinine [Mass/Vol] 1.30 mg/dL High 0.52-1.25 [facility] Comment on above: Performed By: #### H EMDF, RENL3, TPUR, CRTUR, CUA2 #### [facility] [address] [place] [address] GFR/1.73 sq M.predicted ramona g blacks MDRD (S/P/Bld) [Vol rate/Area] 69.9 mL/min/{1.73_m2} Normal >60 [facility] Comment on above: Performed By: #### H EMDF, RENL3, TPUR, CRTUR, CUA2 #### [facility] [address] [place] [address] GFR/1.73 sq M.predicted ramona g non-blacks MDRD (S/P/Bld) [Vol rate/Area] 60.3 mL/min/{1.73_m2} Normal >60 [facility] Comment on above: Result Comment: KDIG O guidelines provide the following GFR categories: Stage GFR(ml/min/1.73 m2) Terms G1 >=90 Normal or high G2 60-89 Mildly decreased* G3a 45-59 Mildly to moderately decreased G3b 30-44 Moderately to severely decreased G4 15-29 Severely decreased G5 <15 Kidney failure *Relative to young adult level. In the absence of evidence of kidney damage, neither GFR category G1 nor G2 fulfill the criteria for CKD. The CKD-EPI equation is validated in individuals 18 years of age and older. Currently the best equation for estimating glomerular filtration rate (GFR) from serum creatinine in children is the Bedside Oleary equation. It is less accurate in patients with extremes of muscle mass, restriction of dietary protein, ingestion of creatine, extra-renal metabolism of creatinine, or treatment with medications that affect renal tubular creatinine secretion. Performed By: #### H EMDF, RENL3, TPUR, CRTUR, CUA2 #### [facility] [address] [place] [address] Glucose [Mass/Vol] 126 mg/dL High 70-100 [facility] Comment on above: Performed By: #### H EMDF, RENL3, TPUR, CRTUR, CUA2 #### [facility] [address] [place] [address] Protein [Mass/Vol] 7.3 g/dL Normal 6.3-8.2 [facility] Comment on above: Performed By: #### H EMDF, RENL3, TPUR, CRTUR, CUA2 #### [facility] [address] [place] [address] Urea nitrogen [Mass/Vol] 11 mg/dL Normal 7-17 [facility] Comment on above: Performed By: #### H EMDF, RENL3, TPUR, CRTUR, CUA2 #### [facility] [address] [place] [address] Potassium [Moles/Vol] 3.9 mmol/L Normal 3.5-5.1 [facility] Comment on above: Performed By: #### H EMDF, RENL3, TPUR, CRTUR, CUA2 #### [facility] [address] [place] [address] Albumin [Mass/Vol] 3.9 g/dL Normal 3.5-5.0 [facility] Comment on above: Performed By: #### H EMDF, RENL3, TPUR, CRTUR, CUA2 #### [facility] [address] [place] [address] Chloride [Moles/Vol] 103 mmol/L Normal 98-107 [facility] Comment on above: Performed By: #### H EMDF, RENL3, TPUR, CRTUR, CUA2 #### [facility] [address] [place] [address] Sodium [Moles/Vol] 137 mmol/L Normal 135-145 [facility] Comment on above: Performed By: #### H EMDF, RENL3, TPUR, CRTUR, CUA2 #### [facility] [address] [place] [address] Complete Urinalysison 2021 Appearance (U) Clear Normal [facility] Comment on above: Result Comment: . Performed By: #### C UA2 ####[address] [place] [address] Bacteria LM.HPF (Urine sed) [#/Area] Negative Normal Negative [facility] Comment on above: Result Comment: . Performed By: #### C UA2 ####[address] [place] [address] Bilirubin,Urine Negative Normal Negative [facility] Comment on above: Result Comment: . Performed By: #### C UA2 ####[place] [address] [place] [address] Color (U) Light-Yellow Normal Lt. Yellow [facility] Comment on above: Result Comment: . Performed By: #### C UA2 ####[address] [place] [address] Glucose Ql (U) Normal Normal Normal (<70) [facility] Comment on above: Result Comment: . Performed By: #### C UA2 ####[address] [place] [address] Ketone,Urine Negative Normal Negative [facility] Comment on above: Result Comment: . Performed By: #### C UA2 ####[address] [place] [address] Leukocytes,Urine Negative Normal Negative [facility] Comment on above: Result Comment: . Performed By: #### C UA2 ####[address] [place] [address] Mucous Threads Few Normal Negative [facility] Comment on above: Result Comment: . Performed By: #### C UA2 ####[address] [place] [address] Nitrites,Urine Negative Normal Negative [facility] Comment on above: Result Comment: . Performed By: #### C UA2 ####[address] [place] [address] Occult Blood,Urine Negative Normal Negative [facility] Comment on above: Result Comment: . Performed By: #### C UA2 ####[address] [place] [address] pH,Urine 6.5 Normal 5.0-8.0 [facility] Comment on above: Result Comment: . Performed By: #### C UA2 ####[address] [place] [address] Protein (U) [Mass/Vol] 20 mg/dL Abnormal Negative [facility] Comment on above: Result Comment: . Performed By: #### C UA2 ####[address] [place] [address] RBC, Urine 0 - 2 Normal 0-2 [facility] Comment on above: Result Comment: . Performed By: #### C UA2 ####[address] [place] [address] Specific Kirwin,Urine 1.010 Normal 1.005 - 1.030 [facility] Comment on above: Result Comment: . Performed By: #### C UA2 ####[facility] [facility] [place] [address] Squamous Epithelial 0 - 2 Normal 3-5 [facility] Comment on above: Result Comment: . Performed By: #### C UA2 ####[facility] [place] [address] Urobilinogen,Urine Normal Normal Normal (0-1) [facility] Comment on above: Result Comment: . Performed By: #### C UA2 ####[facility] [place] [address] WBC, Urine 3 - 5 Normal 0-5 [facility] Comment on above: Result Comment: . Performed By: #### C UA2 ####[place] [address] [place] [address] Comprehensive Metabolic Pane tung 06-15-2021 Albumin [Mass/Vol] 3.9 g/dL 3.5 - 5.0 g/dL [facility] ALP (Bld) [Catalytic activity/Vol] 83 U/L 38 - 126 U/L [facility] ALT [Catalytic activity/Vol] 23 U/L 0 - 49 U/L [facility] Comment on above: The ALT test is perf ormed by an updated assay method. Please note that the reference intervals have been changed and are now sex specific. Anion gap [Moles/Vol] 8 mmol/L 3 - 13 mmol/L [facility] AST [Catalytic activity/Vol] 37 U/L 15 - 46 U/L [facility] Bilirubin [Mass/Vol] 0.8 mg/dL 0.2 - 1 .3 mg/dL [facility] Calcium [Mass/Vol] 8.7 mg/dL 8.4 - 10. 4 mg/dL [facility] Chloride [Moles/Vol] 103 mmol/L 98 - 10 7 mmol/L [facility] CO2 [Moles/Vol] 27 mmol/L 22 - 30 mmol/L [facility] Creatinine [Mass/Vol] 1.3 mg/dL High 0.52 - 1.25 mg/dL [facility] EGFR IF NonAfrican [place]i 60.3 mL/min >60 [facility] Comment on above: KDIGO guidelines pro vide the following GFR categories: Stage GFR(ml/min/1.73 m2) Terms G1 >=90 Normal or high G2 60-89 Mildly decreased* G3a 45-59 Mildly to moderately decreased G3b 30-44 Moderately to severely decreased G4 15-29 Severely decreased G5 <15 Kidney failure *Relative to young adult level. In the absence of evidence of kidney damage, neither GFR category G1 nor G2 fulfill the criteria for CKD. The CKD-EPI equation is validated in individuals 18 years of age and older. Currently the best equation for estimating glomerular filtration rate (GFR) from serum creatinine in children is the Bedside Oleary equation. It is less accurate in patients with extremes of muscle mass, restriction of dietary protein, ingestion of creatine, extra-renal metabolism of creatinine, or treatment with medications that affect renal tubular creatinine secretion. Free PSA/Total PSA [Mass fraction] 7.3 g/dL 6.3 - 8.2 g/dL [facility] GFR/1.73 sq M.predicted ramona g blacks MDRD (S/P/Bld) [Vol rate/Area] 69.9 mL/min/{1.73_m2} >60 [facility] Glucose [Mass/Vol] 126 mg/dL High 70 - 100 mg/dL [facility] Interpretation and review of laboratory results Abnormal [facility] Potassium [Moles/Vol] 3.9 mmol/L 3.5 - 5.1 mmol/L [facility] Sodium [Moles/Vol] 137 mmol/L 135 - 145 mmol/L [facility] Urea nitrogen (BldV) [Mass/Vol] 11 mg/dL 7 - 17 mg/dL [facility] ED Provider Noteon ED Provider Note Emergency Department Encounter [facility] ED Patient: Sophie Hicks : 1965 Date of Evaluation: 06/15/2021 ED Provider: Ramón Marcus MD Note: This patient was seen during pandemic, I wore an N95 mask and gloves during this encounter. CHIEF COMPLAINT: Abdominal pain HPI: Sophie Hicks is a 55 y.o. male with PMH including diabetes, peripheral neuropathy, hypertension, atrial fibrillation, CAD, CKD, GERD, hyperlipidemia, presents concern for abdominal pain. Patient reports he has an hernia in the region of the epigastrum, he reports this is causing him epigastric abdominal pain for the last 2 days, described as a sharp stabbing sensation, he endorses associated vomiting, denies fever chills, denies cough, or chest pain, denies shortness of breath, he denies scrotal swelling or testicular pain, difficulty with urination, dysuria or hematuria, denies pain throughout the extremities, denies changes in bowel habits. REVIEW OF SYSTEMS: 10 systems reviewed and otherwise acutely negative except as per HPI. HISTORIES: PAST MEDICAL HISTORY: as per HPI SOCIAL HISTORY: Denies tobacco or alcohol or illicit drug use MEDICATIONS: Nursing notes and EMR reviewed ALLERGIES: Nursing notes and EMR reviewed PHYSICAL EXAM: Vital signs: reviewed General: no apparent distress, well appearing Eyes: no conjunctival injection, eyes tracking HEENT: airway patent, mucous membranes moist Cardiovascular: regular rhythm, normal rate Respiratory: non-labored breathing, breath sounds clear Gastrointestinal: soft, non-distended, tenderness to palpation in the epigastric region with no palpable bulge, abdomen nontender elsewhere, no rigidity bending or guarding Extremities: no obvious deformity, non edematous Integumentary: warm, dry Neurologic: alert, no obvious neurologic deficits Medications 0.9 % sodium chloride bolus (0 mLs IntraVENous Stopped 06/15/212053) ondansetron (ZOFRAN) injection 4 mg (4 mg IntraVENous Given 06/15/211830) morphine sulfate (PF) injection 4 mg (4 mg IntraVENous Given 06/15/211830) morphine sulfate (PF) injection 4 mg (4 mg IntraVENous Given 06/15/212025) MEDICAL DECISION MAKING: Sophie Hicks is a 55 y.o. male who presents as above, with epigastric abdominal pain, reports history of a hernia in this area, he arrives with focal tenderness in the epigastrium, no palpable bulge, nonperitoneal abdomen, he is afebrile with reassuring vitals, low suspicion for an acute cardiopulmonary process. Discussed with patient, will obtain work-up including CT abdomen pelvis, laboratory evaluation, EKG, will treat with morphine and Zofran. Labs obtained, reviewed, notable for renal insufficiency, lactate within normal limits, glucose within acceptable range, unremarkable LFTs and lipase, no leukocytosis, hemoglobin 12.6, urinalysis no evidence of urinary tract infection EKG interpreted using Epiphany, notable for sinus rhythm, no acute ischemic ST segment changes, troponin WNL CT abdomen pelvis (without contrast, allergy) per radiologist interpretation normal examination Patient informed of findings, reevaluation is well-appearing in no apparent discomfort, his abdominal exam is benign with no tenderness throughout including the epigastric region, no rigidity rebounding or guarding. Management options discussed, patient agreeable with plan for discharge, will prescribe pepcid, recommend close PCP follow-up with strict return precautions discussed, additionally will provide referral for gastroenterology follow-up, recommend close follow up, patient in agreement with plan, stable for discharge. DIAGNOSIS: Epigastric abdominal pain DISPOSITION: Discharged Comment: Please note this report has been produced using speech recognition software and may contain errors related to that system including errors in grammar, punctuation, and spelling, as well as words and phrases that may be inappropriate. If there are any questions or concerns please feel free to contact the dictating provider for clarification. Ramón Marcus MD [facility] Ramón Marcus MD 06/15/21 2353 Normal [facility] EKG 12 Leadon 06-15-2021 [facility] Test Date: 2021-06-15 Pat Name: SOPHIE HICKS Department: 2AED Room: 444 Gender: M 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: ALIA : 1965 Requested By: RAMÓN MARCUS Order Number: [id number] Reading MD: Ramón Marcus Measurements Intervals [place] Rate: 86 P: 26 IN: 165 QRS: 42 QRSD: 89 T: 80 QT: 367 QTc: 440 Interpretive Statements Sinus rhythm Compared to ECG 02/11/2021 10:08:57 No significant changes Electronically Signed On 06-15-2021 19:40:45 EST by Ramón Marcus [facility] Ramón Marcus MD - 06/15/2021 [facility] Test Date: 2021-06-15 Pat Name: SOPHIE BRIGGSRY Department: 2AED Room: 444 Gender: M 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: ALIA : 1965 Requested By: RAMÓN MARCUS Order Number: [id number] Reading : Ramón Marcus Measurements Intervals [place] Rate: 86 P: 26 IN: 165 QRS: 42 QRSD: 89 T: 80 QT: 367 QTc: 440 Interpretive Statements Sinus rhythm Compared to ECG 02/11/2021 10:08:57 No significant changes Electronically Signed On 06-15-2021 19:40:45 EST by Ramón Marcus [facility] Work Phone: [facility] Work Phone: Hemogramon 06-15-2021 Erythrocyte distribution width (RBC) [Ratio] 14.4 % Normal 11.5-14.5 [facility] Comment on above: Performed By: #### H EMDF, RENL3, TPUR, CRTUR, CUA2 #### [facility] [address] [place] [address] Hematocrit (Bld) [Volume fraction] 36.8 % Low 40.0-52.0 [facility] Comment on above: Performed By: #### H EMDF, RENL3, TPUR, CRTUR, CUA2 #### [facility] [address] [place] [address] Hemoglobin (Bld) [Mass/Vol] 12.6 g/dL Low 13.0-18. 0 [facility] Comment on above: Performed By: #### H EMDF, RENL3, TPUR, CRTUR, CUA2 #### [facility] [address] [place] [address] MCH (RBC) [Entitic mass] 28.1 pg Normal 26.0-34.0 [facility] Comment on above: Performed By: #### H EMDF, RENL3, TPUR, CRTUR, CUA2 #### [facility] [address] [place] [address] MCHC 34.3 % Normal 32.0-36.0 [facility] Comment on above: Performed By: #### H EMDF, RENL3, TPUR, CRTUR, CUA2 #### [facility] [address] [place] [address] MCV (RBC) [Entitic vol] 81.9 fL Normal 80.0-98.0 S [facility] Comment on above: Performed By: #### H EMDF, RENL3, TPUR, CRTUR, CUA2 #### [facility] [address] [place] [address] Platelet mean volume (Bld) [Entitic vol] 6.3 fL Low 7.4-10.4 [facility] Comment on above: Performed By: #### H EMDF, RENL3, TPUR, CRTUR, CUA2 #### [facility] [address] [place] [address] Platelets (Bld) [#/Vol] 198 10*3/uL Normal 140-440 [facility] Comment on above: Performed By: #### H EMDF, RENL3, TPUR, CRTUR, CUA2 #### [facility] [address] [place] [address] RBC (Bld) [#/Vol] 4.49 10*6/uL Normal 4.40-5.90 [facility] Comment on above: Performed By: #### H EMDF, RENL3, TPUR, CRTUR, CUA2 #### [facility] [address] [place] [address] WBC (Bld) [#/Vol] 8.9 10*3/uL Normal 3.6-10.7 [facility] Comment on above: Performed By: #### H EMDF, RENL3, TPUR, CRTUR, CUA2 #### [facility] [address] [place] [address] Lactic Acidon 06-15-2021 Lactate [Moles/Vol] 1.5 mmol/L Normal 0.7-2.0 [facility] Comment on above: Performed By: #### H EMDF, RENL3, TPUR, CRTUR, CUA2 #### [facility] [address] [place] [address] Lactate [Moles/Vol] 1.5 mmol/L 0.7 - 2. 0 mmol/L [facility] Test Performed by [facility], [address] [place], [place] [id number] [place] [address] LAB [facility] Lipaseon 06-15-2021 Lipase [Catalytic activity/Vol] 75 U/L Normal 23-300 [facility] Comment on above: Performed By: #### H EMDF, RENL3, TPUR, CRTUR, CUA2 #### [facility] [address] [place] [address] Lipase [Catalytic activity/Vol] 75 U/L 23 - 300 U/L [facility] No Panel Informationon 06-15 Test Performed by [facility], [address], [place], [place] [id number] [place] [address] [facility] Troponinon 06-15-2021 Troponin I.cardiac [Mass/Vol] ng/mL 0.000 - 0.034 ng/mL [facility] Comment on above: . Test Performed by [facility], [address], [place], [place] [id number] [place] [address] LAB [facility] Troponin Ion 06-15-2021 Troponin I.cardiac [Mass/Vol] ng/mL Normal 0.000-0.03 4 [facility] Comment on above: Result Comment: . Performed By: #### H EMDF, RENL3, TPUR, CRTUR, CUA2 #### [facility] [address] [place] [address] Urinalysison 06-15-2021 Appearance (U) Clear Clear NA [facility] Comment on above: . Bacteria, UA Negative Negative /[HPF] [facility] Comment on above: . Bilirubin Urine Negative Negative mg/dL [facility] Comment on above: . Color (U) Light-Yellow Lt. Yellow NA [facility] Comment on above: . Glucose, Ur Normal Normal (<70) mg/dL [facility] Comment on above: . Interpretation and review of laboratory results Abnormal [facility] Ketones Ql (U) Negative Negative mg/dL [facility] Comment on above: . LEUKOCYTES, UA Negative Negative Caprice/uL [facility] Comment on above: . Mucous Threads Few Negative /[LPF] [facility] Comment on above: . Nitrite, Urine Negative Negative NA [facility] Comment on above: . Occult Blood,Urine Negative Negative mg/dL [facility] Comment on above: . pH (U) 6.5 [pH] [facility] Comment on above: . Protein (U) [Mass/Vol] 20 mg/dL Abnormal Negative [facility] Comment on above: . RBC, UA 0-2 0 - 2 /[HPF] [facility] Comment on above: . Specific Kirwin, Urine 1.010 S [facility] Comment on above: . Squam Epithel, UA 0-2 3 - 5 /[HPF] [facility] Comment on above: . Urobilinogen, Urine Normal Normal (0-1) mg/dL [facility] Comment on above: . WBC, UA 3-5 0 - 5 /[HPF] [facility] Comment on above: . Test Performed by [facility], [address], [place], [place] [address] [facility] LAB [facility] RF UGI w/o KUB w/ or w/o Del ay Flmon 03-05-2021 RF UGI w/o KUB w/ or w/o Delay Flm Patient Name: SOPHIE HICKS Fluoroscopy ACCESSION EXAM DATE/TIME PROCEDURE ORDERING PROVIDER [id number] 03/05/2021 10:29 EST RF UGI w/o KUB and w/ or JORDAN RIGGS, TONIA R. w/o Delay Flm CPT code 86851 Reason For Exam (RF UGI w/o KUB and w/ or w/o Delay Flm) Heartburn Report Upper GI:: 03/05/2021. CLINICAL INFORMATION: Heartburn. FINDINGS: Fluoroscopic and image studies of the esophagus only were performed as requested. 1.2 minutes of fluoroscopic time was used for the examination. 33 fluoroscopic spot images were obtained. The esophagus is normal in course and caliber. No mucosal ulcerations or mass lesions were identified. No areas of stricturing or narrowing were seen. There is a small sliding hiatal hernia and a small amount of gastroesophageal reflux. The stomach is normal in position and contour. No mucosal ulcerations or mass lesions were identified. The duodenal bulb and duodenal C-loop are normal in position. There is some deformity of the duodenal bulb suggesting chronic healed ulcer disease. There may be post bulbar irregularity as well suggesting healing post bulbar ulcers. Correlation with upper endoscopy recommended. IMPRESSION: Small sliding hiatal hernia with reflux. Probable chronic ulcer disease duodenal bulb and post bulbar duodenum. Further evaluation with upper endoscopy recommended. Report Dictated on Final Dictated: 03/05/2021 2:32 pm Dictating Physician: MD ARTEAGA RISA Signed Date and Time: 03/05/2021 3:20 pm Signed by: MD ARTEAGA RISA Transcribed Date and Time: 03/05/2021 2:34 Normal [facility] US Abdomen Completeon 2020 US Abdomen Complete Patient Name: SOPHIE HICKS Ultrasound ACCESSION EXAM DATE/TIME PROCEDURE ORDERING PROVIDER [id number] 03/05/2021 08:53 EST US Abdomen Complete JORDAN RIGGS, TONIA Murray CPT code 48788 Reason For Exam (US Abdomen Complete) Abdominal Pain Report CLINICAL INFORMATION: Abdominal pain Sonogram of the abdomen is performed. Comparison ultrasound from 11/26/2020 and 07/25/[address] from 11/26/2020 and 11/01/2020 and 09/29/2020 and 08/09/2020 and 06/08/2020 and 06/04/2020. The liver is hyperechoic in echotexture. No hyper or hypo echoic masses are seen with some focal areas of fatty sparing near the gallbladder fossa. There is no intrahepatic biliary ductal dilatation. The gallbladder is normally distended. There are no gallstones, internal echoes, wall thickening, or pericholecystic fluid collections. The common bile duct is not well visualized. The pancreas is obscured by bowel gas (and patient body habitus). Cursory examination of the kidneys is performed. The right renal length is 11.7 cm. The left renal length is 11.8cm. There is no hydronephrosis. There is no ascites. The spleen is unremarkable The very limited visualized portions of the aorta and inferior vena cava are within normal limits. IMPRESSION: Limited ultrasound examination as discussed above due to patient size-no significant finding is seen except for hepatomegaly with fatty infiltration liver Report Dictated on Final Dictated: 03/05/2021 12:44 pm Dictating Physician: MD PROCTOR WILLIAM Signed Date and Time: 03/05/2021 12:50 pm Signed by: MD PROCTOR WILLIAM Transcribed Date and Time: 03/05/2021 12:44 Normal [facility] Basic Metabolic Panelon 11-0 Anion gap [Moles/Vol] 8 mmol/L Normal 3-13 [facility] Comment on above: Performed By: #### L FT3, MG3, BHB, HEMDF, TROPN, BMP3 ####[facility] [place] [address] Calcium [Mass/Vol] 8.8 mg/dL Normal 8.4-10.4 [facility] Comment on above: Performed By: #### L FT3, MG3, BHB, HEMDF, TROPN, BMP3 ####[facility] [place] [address] Chloride [Moles/Vol] 100 mmol/L Normal 98-107 [facility] Comment on above: Performed By: #### L FT3, MG3, BHB, HEMDF, TROPN, BMP3 ####[facility] [place] [address] CO2 [Moles/Vol] 26 mmol/L Normal 22-30 [facility] Comment on above: Performed By: #### L FT3, MG3, BHB, HEMDF, TROPN, BMP3 ####[place] [address] [place] [address] Creatinine [Mass/Vol] 1.08 mg/dL Normal 0.52-1.25 [facility] Comment on above: Performed By: #### L FT3, MG3, BHB, HEMDF, TROPN, BMP3 ####[facility] [place] [address] GFR/1.73 sq M.predicted ramona g blacks MDRD (S/P/Bld) [Vol rate/Area] 87.6 mL/min/{1.73_m2} Normal >60 [facility] Comment on above: Performed By: #### L FT3, MG3, BHB, HEMDF, TROPN, BMP3 ####[place] [address] [place] [address] GFR/1.73 sq M.predicted raomna g non-blacks MDRD (S/P/Bld) [Vol rate/Area] 75.6 mL/min/{1.73_m2} Normal >60 [facility] Comment on above: Result Comment: KDIG O guidelines provide the following GFR categories: Stage GFR(ml/min/1.73 m2) Terms G1 >=90 Normal or high G2 60-89 Mildly decreased* G3a 45-59 Mildly to moderately decreased G3b 30-44 Moderately to severely decreased G4 15-29 Severely decreased G5 <15 Kidney failure *Relative to young adult level. In the absence of evidence of kidney damage, neither GFR category G1 nor G2 fulfill the criteria for CKD. The CKD-EPI equation is validated in individuals 18 years of age and older. Currently the best equation for estimating glomerular filtration rate (GFR) from serum creatinine in children is the Bedside Oleary equation. It is less accurate in patients with extremes of muscle mass, restriction of dietary protein, ingestion of creatine, extra-renal metabolism of creatinine, or treatment with medications that affect renal tubular creatinine secretion. Performed By: #### L FT3, MG3, BHB, HEMDF, TROPN, BMP3 ####[address] [facility] [place] [address] Glucose [Mass/Vol] 339 mg/dL High 70-100 [facility] Comment on above: Performed By: #### L FT3, MG3, BHB, HEMDF, TROPN, BMP3 ####[address] [place] [address] Potassium [Moles/Vol] 3.9 mmol/L Normal 3.5-5.1 [facility] Comment on above: Performed By: #### L FT3, MG3, BHB, HEMDF, TROPN, BMP3 ####[address] [facility] [place] [address] Sodium [Moles/Vol] 134 mmol/L Low 135-145 [facility] Comment on above: Performed By: #### L FT3, MG3, BHB, HEMDF, TROPN, BMP3 ####[address] [facility] [place] [address] Urea nitrogen [Mass/Vol] 16 mg/dL Normal 7-17 [facility] Comment on above: Performed By: #### L FT3, MG3, BHB, HEMDF, TROPN, BMP3 ####[address] [facility] [place] [address] Basic Metabolic PanelOrdered By: Brijesh Snell on 02-11-2021 Anion gap [Moles/Vol] 8 mmol/L 3 - 13 mmol/L [facility] Work Phone: [phone] Calcium [Mass/Vol] 8.8 mg/dL 8.4 - 10. 4 mg/dL [facility] Work Phone: [phone] [Moles/Vol] 100 mmol/L 98 - 10 7 mmol/L [facility] Work Phone: [phone] [Moles/Vol] 26 mmol/L 22 - 30 mmol/L [facility] Work Phone: [phone] Creatinine [Mass/Vol] 1.08 mg/dL 0.52 - 1.25 mg/dL [facility] Work Phone: [phone] EGFR IF NonAfrican Omani 75.6 mL/min >60 [facility] Work Phone: [phone] Comment on above: KDIGO guidelines pro vide the following GFR categories: Stage GFR(ml/min/1.73 m2) Terms G1 >=90 Normal or high G2 60-89 Mildly decreased* G3a 45-59 Mildly to moderately decreased G3b 30-44 Moderately to severely decreased G4 15-29 Severely decreased G5 <15 Kidney failure *Relative to young adult level. In the absence of evidence of kidney damage, neither GFR category G1 nor G2 fulfill the criteria for CKD. The CKD-EPI equation is validated in individuals 18 years of age and older. Currently the best equation for estimating glomerular filtration rate (GFR) from serum creatinine in children is the Bedside Oleary equation. It is less accurate in patients with extremes of muscle mass, restriction of dietary protein, ingestion of creatine, extra-renal metabolism of creatinine, or treatment with medications that affect renal tubular creatinine secretion. GFR/1.73 sq M.predicted ramona g blacks MDRD (S/P/Bld) [Vol rate/Area] 87.6 mL/min/{1.73_m2} >60 [facility] Work Phone: [phone] Glucose [Mass/Vol] 339 mg/dL High 70 - 100 mg/dL [facility] Work Phone: [phone] Interpretation and review of laboratory results Abnormal [facility] Work Phone: [phone] Potassium [Moles/Vol] 3.9 mmol/L 3.5 - 5.1 mmol/L [facility] Work Phone: [phone] Sodium [Moles/Vol] 134 mmol/L Low 135 - 145 mmol/L [facility] Work Phone: Urea nitrogen (BldV) [Mass/Vol] 16 mg/dL 7 - 17 mg/dL [facility] Work Phone: Beta Hydroxybutyrateon 02-11 Beta Hydroxybutyrate 1.38 mg/dL Normal 0.20-2.81 [facility] [employer] Comment on above: Performed By: #### L FT3, MG3, BHB, HEMDF, TROPN, BMP3 ####[facility] [employer] [id number] [place] [address] Beta-HydroxybutyrateOrdered By: Brijesh Snell on 02-11-2021 Beta-Hydroxybutyrate 1.38 mg/dL 0.20 - 2.81 mg/dL [facility] Work Phone: CR Chest Portableon 02-12-20 21 CR Chest Portable Patient Name: SOPHIE HICKS Diagnostic Radiology ACCESSION EXAM DATE/TIME PROCEDURE ORDERING PROVIDER [id number] 02/11/2021 10:13 EDT CR Chest Portable BRIJESH SNELL CPT code 54135 Reason For Exam (CR Chest Portable) fever, dyspnea Report CLINICAL INFORMATION: Fever and shortness of breath. CHEST X-RAY, PORTABLE, 1013: An AP portable view is compared to the prior examination of 02/09/2021. The examination is slightly underpenetrated. There is elevation the right hemidiaphragm. There is no abnormality of the mediastinum or cardiac silhouette. No pleural effusion, vascular congestion, focal consolidation or pneumothorax is seen. IMPRESSION: Underpenetration. Elevation of the right hemidiaphragm. No evidence of acute cardiopulmonary process. Report Dictated on Final Dictating Physician: MD SMITH HARLAN Signed Date and Time: 02/11/2021 10:19 am Signed by: MD SMITH HARLAN Transcribed Date and Time: 02/11/2021 10:[address] [facility] [address] Head WO ContrastOrdered B y: Brijesh Snell on 02-11-2021 Patient Name: SOPHIE HICKS Computed Tomography ACCESSION EXAM DATE/TIME PROCEDURE ORDERING PROVIDER [id number] 02/11/2021 10:[address] Head or Brain w/o BRIJESH SNELL Contrast CPT code 50757 Reason For Exam (CT Head or Brain w/o Contrast) dizziness Report EXAMINATION: CT HEAD WITHOUT CONTRAST CLINICAL INDICATION: Dizziness TECHNIQUE: CT of the head was performed without the administration of intravenous contrast. COMPARISON: Head CT 09/12/2020 FINDINGS: BRAIN PARENCHYMA: No acute intraparenchymal hemorrhage, acute territorial infarct or masses. Periventricular and subcortical white matter hypodensities, nonspecific, but likely representing chronic microangiopathic changes. MIDLINE SHIFT OR HERNIATION: No midline shift or herniation. VENTRICLES: No hydrocephalus. DURAL VENOUS SINUSES: No hyperdensity to suggest acute thrombus. EXTRA-AXIAL SPACES (epidural, subdural, subarachnoid spaces and basal cisterns): No collections. VISUALIZED ORBITS: Normal. VISUALIZED PARANASAL SINUSES AND MASTOID AIR CELLS: Paranasal sinuses are clear. Tympanomastoid cavities are aerated. SOFT TISSUES: Normal. OSSEOUS STRUCTURES: Normal. IMPRESSION: No acute intracranial abnormality. Mild microangiopathic disease. The examination was reviewed at 02/11/2021 10:41 AM EDT by Jovi Tucker. Computed Tomography Report Report Dictated on --- Final --- Dictating Physician: MD BENITEZ, JOVI ZAMAN Signed Date and Time: 02/11/2021 10:45 am Signed by: MD BENITEZ, JOVI ZAMAN Transcribed Date and Time: 02/11/2021 10:46 [facility] Work Phone: Kirk, [facility] Incoming Radiology Results From [facility] - 02/11/2021 10:46 AM EDT Patient Name: SOPHIE HICKS Computed Tomography ACCESSION EXAM DATE/TIME PROCEDURE ORDERING PROVIDER [id number] 02/11/2021 10:[address] Head or Brain w/o BRIJESH SNELL Contrast CPT code 74682 Reason For Exam (CT Head or Brain w/o Contrast) dizziness Report EXAMINATION: CT HEAD WITHOUT CONTRAST CLINICAL INDICATION: Dizziness TECHNIQUE: CT of the head was performed without the administration of intravenous contrast. COMPARISON: Head CT 09/12/2020 FINDINGS: BRAIN PARENCHYMA: No acute intraparenchymal hemorrhage, acute territorial infarct or masses. Periventricular and subcortical white matter hypodensities, nonspecific, but likely representing chronic microangiopathic changes. MIDLINE SHIFT OR HERNIATION: No midline shift or herniation. VENTRICLES: No hydrocephalus. DURAL VENOUS SINUSES: No hyperdensity to suggest acute thrombus. EXTRA-AXIAL SPACES (epidural, subdural, subarachnoid spaces and basal cisterns): No collections. VISUALIZED ORBITS: Normal. VISUALIZED PARANASAL SINUSES AND MASTOID AIR CELLS: Paranasal sinuses are clear. Tympanomastoid cavities are aerated. SOFT TISSUES: Normal. OSSEOUS STRUCTURES: Normal. IMPRESSION: No acute intracranial abnormality. Mild microangiopathic disease. The examination was reviewed at 02/11/2021 10:41 AM EDT by Jovi Tucker. Computed Tomography Report Report Dictated on --- Final --- Dictating Physician: MD BENITEZ, JOVI ZAMAN Signed Date and Time: 02/11/2021 10:45 am Signed by: MD BENITEZ, JOVI ZAMAN Transcribed Date and Time: 02/11/2021 10:46 [facility] Work Phone: [facility] Work Phone: CT Head or Brain w/o Contras ton 02-11-2021 CT Head or Brain w/o Contrast Patient Na me: SOPHIE HICKS [facility]#: [id number] Computed Tomography ACCESSION EXAM DATE/TIME PROCEDURE ORDERING PROVIDER [id number] 02/11/2021 10:[address] Head or Brain w/o BRIJESH SNELL Contrast CPT code 89897 Reason For Exam (CT Head or Brain w/o Contrast) dizziness Report EXAMINATION: CT HEAD WITHOUT CONTRAST CLINICAL INDICATION: Dizziness TECHNIQUE: CT of the head was performed without the administration of intravenous contrast. COMPARISON: Head CT 09/12/2020 FINDINGS: BRAIN PARENCHYMA: No acute intraparenchymal hemorrhage, acute territorial infarct or masses. Periventricular and subcortical white matter hypodensities, nonspecific, but likely representing chronic microangiopathic changes. MIDLINE SHIFT OR HERNIATION: No midline shift or herniation. VENTRICLES: No hydrocephalus. DURAL VENOUS SINUSES: No hyperdensity to suggest acute thrombus. EXTRA-AXIAL SPACES (epidural, subdural, subarachnoid spaces and basal cisterns): No collections. VISUALIZED ORBITS: Normal. VISUALIZED PARANASAL SINUSES AND MASTOID AIR CELLS: Paranasal sinuses are clear. Tympanomastoid cavities are aerated. SOFT TISSUES: Normal. OSSEOUS STRUCTURES: Normal. IMPRESSION: No acute intracranial abnormality. Mild microangiopathic disease. The examination was reviewed at 02/11/2021 10:41 AM EDT by Jovi Tucker. Computed Tomography Report Report Dictated on Final Dictating Physician: MD BENITEZ, JOVI AZMAN Signed Date and Time: 02/11/2021 10:45 am Signed by: MD BENITEZ, JOVI ZAMAN Transcribed Date and Time: 02/11/2021 10:46 Normal [facility] Complete Urinalysison 2020 Appearance (U) Clear Normal [facility] Comment on above: Result Comment: . Performed By: #### C UA2 ####[address] [place] [address] Bacteria Few Abnormal Negative [facility] Comment on above: Result Comment: . Performed By: #### C UA2 ####[address] [place] [address] Bilirubin,Urine Negative Normal Negative [facility] Comment on above: Result Comment: . Performed By: #### C UA2 ####[address] [facility] [place] [address] Color (U) Yellow Normal Lt. Yellow [facility] Comment on above: Result Comment: . Performed By: #### C UA2 ####[address] [place] [address] Glucose Ql (U) > 1,000 Abnormal Normal (<70) [facility] Comment on above: Result Comment: . Performed By: #### C UA2 ####[address] [place] [address] Ketone,Urine Negative Normal Negative [facility] Comment on above: Result Comment: . Performed By: #### C UA2 ####[place] [address] [place] [address] Leukocytes,Urine Negative Normal Negative [facility] Comment on above: Result Comment: . Performed By: #### C UA2 ####[address] [place] [address] Mucous Threads Few Normal Negative [facility] Comment on above: Result Comment: . Performed By: #### C UA2 ####[address] [place] [address] Nitrites,Urine Negative Normal Negative [facility] Comment on above: Result Comment: . Performed By: #### C UA2 ####[address] [place] [address] Occult Blood,Urine Negative Normal Negative [facility] Comment on above: Result Comment: . Performed By: #### C UA2 ####[address] [place] [address] pH,Urine 6.0 Normal 5.0-8.0 [facility] Comment on above: Result Comment: . Performed By: #### C UA2 ####[address] [place] [address] Protein (U) [Mass/Vol] 200 mg/dL Abnormal Negative [facility] Comment on above: Result Comment: . Performed By: #### C UA2 ####[address] [place] [address] RBC LM.HPF (Urine sed) [#/Area] Negative Normal 0-2 [facility] Comment on above: Result Comment: . Performed By: #### C UA2 ####[address] [place] [address] Specific Kirwin,Urine 1.022 Normal 1.005 - 1.030 [facility] Comment on above: Result Comment: . Performed By: #### C UA2 ####[address] [place] [address] Squamous Epithelial 0 - 2 Normal 3-5 [facility] Comment on above: Result Comment: . Performed By: #### C UA2 ####[address] [place] [address] Urobilinogen,Urine Normal Normal Normal (0-1) [facility] Comment on above: Result Comment: . Performed By: #### C UA2 ####[facility] [employer] [id number] [place] [address] WBC, Urine 0 - 2 Normal 0-5 [facility] [employer] [facility] Comment on above: Result Comment: . Performed By: #### C UA2 ####[facility] [id number] [place] [address] ED Provider Noteon ED Provider Note [facility] EMERGENCY DEPARTMENT ENCOUNTER Pt Name: Sophie Hicks Birthdate 1965 Date of evaluation: 02/11/2021 Provider: Brijesh Snell MD CHIEF COMPLAINT Chief Complaint Patient presents with ? Dizziness ? Hyperglycemia I wore a KN95 mask for the entirety of this encounter. HISTORY OF PRESENT ILLNESS (Location/Symptom, Timing/Onset,Contex t/Setting, Quality, Duration, Modifying Factors, Severity) Note limiting factors. HPI Sophie Hicks is a 55 y.o. male who presents to the emergency department with complaint of feeling lightheaded and dizzy. He felt this morning that he may pass out. He states he felt feverish last night. He states he feels generally weak and fatigued. States he has tingling in his hands and feet but this is chronic for him due to his kidney disease. States he was just diagnosed with diabetes about a week ago. States his blood sugar has been running in the 400s. States he just started his insulin 2 to 3 days ago and his blood sugar still elevated. Denies unilateral weakness. Denies speech change. States it feels like his vision is going to go black when he is very lightheaded. Worse with standing. No other exacerbating or alleviating factors. Denies cough or cold symptoms. Denies chest pain or shortness of breath. States he had Covid in the past and states he is also received Covid vaccines including a booster a month ago. Nursing Notes were reviewed. REVIEW OFSYSTEMS (2+ for level 4; 10+ level 5) Review of Systems pertinent positives as above per history of present illness. Other systems reviewed and found to be negative to a total of 10 systems reviewed. PAST MEDICAL HISTORY Past Medical History: Diagnosis Date ? Abdominal pain ? Atrial fibrillation (HCC) ? Back pain ? Benign essential HTN 01/29/2015 ? Blood circulation, collateral ? CAD (coronary artery disease) mild - dx on cath - neg stress ? Cerebral artery occlusion with cerebral infarction (HCC) ? CHF (congestive heart failure) (HCC) ? Chronic kidney disease ? COPD (chronic obstructive pulmonary disease) (HCC) ? COVID-19 05/03 ? COVID-19 vaccine series completed 09/25/2020 Moderna ? CS (cervical spondylosis) 12/25/2004 CERVICAL SPINE DJD ? Difficulty sleeping ? Dizziness ? GERD (gastroesophageal reflux disease) ? History of colonic polyps 06/21/2013 repeat 2018 ? Hyperlipidemia ? Insomnia 08/15/2014 ? Joint pain, hip ? Joint pain, knee ? Memory difficulties ? Muscle weakness ? Peripheral polyneuropathy 09/30/2020 ? Shortness of breath at rest ? Snoring ? SOBOE (shortness of breath on exertion) SURGICAL HISTORY Past Surgical History: Procedure Laterality Date ? APPENDECTOMY ? COLONOSCOPY 2020 ? CYSTOSCOPY 10/26/2020 ? CYSTOSCOPY 11/19/2020 ? ENDOSCOPY, COLON, DIAGNOSTIC ? NECK SURGERY Posterior cervical fusion ? ROTATOR CUFF REPAIR Bilateral ? UPPER GASTROINTESTINAL ENDOSCOPY 01/24/2021 Dr. Cabello CURRENT MEDICATIONS Previous Medications ACETAMINOPHEN (TYLENOL) 500 MG TABLET Take 2 tablets by mouth 4 times daily as needed for Pain ALBUTEROL SULFATE HFA (VENTOLIN HFA) 108 (90 BASE) MCG/ACT INHALER Inhale 2 puffs into the lungs 4 times daily as needed for Wheezing Use every Four hours for the next 2 days then May switch to every four hours as needed. ASPIRIN 81 MG CHEWABLE TABLET Take 81 mg by mouth daily ATORVASTATIN (LIPITOR) 80 MG TABLET Take 1 tablet by mouth nightly BACLOFEN (LIORESAL) 10 MG TABLET Take 10 mg by mouth 3 times daily prn CYCLOBENZAPRINE (FLEXERIL) 10 MG TABLET Take 10 mg by mouth 3 times daily as needed for Muscle spasms CYCLOBENZAPRINE (FLEXERIL) 10 MG TABLET Take 1 tablet by mouth 3 times daily as needed for Muscle spasms CYCLOPHOSPHAMIDE (CYTOXAN) 50 MG CAPS CAPSULE Take 3 capsules by mouth 2 times daily DICYCLOMINE (BENTYL) 10 MG CAPSULE Take 1 capsule by mouth 3 times daily (before meals) ERYTHROMYCIN (ROMYCIN) 5 MG/GM OPHTHALMIC OINTMENT Apply to your eye 4 times a day FAMOTIDINE (PEPCID) 20 MG TABLET Take 1 tablet by mouth 2 times daily for 14 days FLUTICASONE-SALMETE ROL (ADVAIR DISKUS) 250-50 MCG/DOSE AEPB Inhale 1 puff into the lungs every 12 hours FUROSEMIDE (LASIX) 40 MG TABLET Take 80 mg by mouth 2 times daily METOLAZONE (ZAROXOLYN) 2.5 MG TABLET Take 1 tablet by mouth daily Take 30min before torsemide METOLAZONE (ZAROXOLYN) 2.5 MG TABLET Take 1 tablet by mouth three times a week ONDANSETRON (ZOFRAN ODT) 4 MG DISINTEGRATING TABLET Take 1 tablet by mouth every 8 hours as needed for Nausea OXYBUTYNIN (DITROPAN XL) 10 MG EXTENDED RELEASE TABLET Take 1 tablet by mouth daily PANTOPRAZOLE (PROTONIX) 40 MG TABLET Take 1 tablet by mouth 2 times daily (with meals) POTASSIUM CHLORIDE (KLOR-CON) 20 MEQ PACKET Take 20 mEq by mouth 2 times daily PREDNISONE (DELTASONE) 20 MG TABLET Take 20 mg by mouth daily 4 tabs daily total 80mg PROMETHAZINE (PHENER (more content not included)... Normal [facility] Glucose,Bedsideon 02-11-2021 Glucose [Mass/Vol] 191 mg/dL High 70-100 [facility] Comment on above: Result Comment: Test performed by glucose meter. Results may be 10%-15% lower than serum/plasma values. (CLIA ID [id number]) Performed By: #### H EMDF, RENL3, TPUR, CRTUR, CUA2 #### [facility] [address] [place] [address] Hemogram w/ Autodiffon 02-11 Abs Baso Cnt 0.1 10*3/uL Normal 0.0-0.2 [facility] Comment on above: Performed By: #### L FT3, MG3, BHB, HEMDF, TROPN, BMP3 ####[facility] [facility] [place] [address] Abs Neutrophile Cnt 4.5 10*3/uL Normal 1.8-7.0 [facility] Comment on above: Performed By: #### L FT3, MG3, BHB, HEMDF, TROPN, BMP3 ####[place] [address] [place] [address] Basophils/100 WBC (Bld) 0.8 % Normal 0.0-2.0 [facility] Comment on above: Performed By: #### L FT3, MG3, BHB, HEMDF, TROPN, BMP3 ####[place] [address] [place] [address] Eosinophils (Bld) [#/Vol] 0.2 10*3/uL Normal 0.0-0.5 [facility] Comment on above: Performed By: #### L FT3, MG3, BHB, HEMDF, TROPN, BMP3 ####[place] [address] [place] [address] Eosinophils/100 WBC (Bld) 3.9 % Normal 1.0-6.0 [facility] Comment on above: Performed By: #### L FT3, MG3, BHB, HEMDF, TROPN, BMP3 ####[place] [address] [place] [address] Erythrocyte distribution width (RBC) [Ratio] 14.0 % Normal 11.5-14.5 [facility] Comment on above: Performed By: #### L FT3, MG3, BHB, HEMDF, TROPN, BMP3 ####[address] [place] [address] Granulocytes/100 WBC (Bld) 70.1 % Normal 40.0-80.0 [facility] Comment on above: Performed By: #### L FT3, MG3, BHB, HEMDF, TROPN, BMP3 ####[place] [address] [place] [address] Hematocrit (Bld) [Volume fraction] 37.2 % Low 40.0-52.0 [facility] Comment on above: Performed By: #### L FT3, MG3, BHB, HEMDF, TROPN, BMP3 ####[place] [address] [place] [address] Hemoglobin (Bld) [Mass/Vol] 12.3 g/dL Low 13.0-18. 0 [facility] Comment on above: Performed By: #### L FT3, MG3, BHB, HEMDF, TROPN, BMP3 ####[address] [place] [address] Lymphocytes (Bld) [#/Vol] 1.2 10*3/uL Normal 1.0-4.3 [facility] Comment on above: Performed By: #### L FT3, MG3, BHB, HEMDF, TROPN, BMP3 ####[address] [place] [address] Lymphocytes/100 WBC (Bld) 18.3 % Low 20.0-40.0 [facility] Comment on above: Performed By: #### L FT3, MG3, BHB, HEMDF, TROPN, BMP3 ####[address] [place] [address] MCH (RBC) [Entitic mass] 27.6 pg Normal 26.0-34.0 [facility] Comment on above: Performed By: #### L FT3, MG3, BHB, HEMDF, TROPN, BMP3 ####[address] [place] [address] MCHC 33.1 % Normal 32.0-36.0 [facility] Comment on above: Performed By: #### L FT3, MG3, BHB, HEMDF, TROPN, BMP3 ####[address] [place] [address] MCV (RBC) [Entitic vol] 83.4 fL Normal 80.0-98.0 [facility] Comment on above: Performed By: #### L FT3, MG3, BHB, HEMDF, TROPN, BMP3 ####[address] [place] [address] Monocytes (Bld) [#/Vol] 0.4 10*3/uL Normal 0.0-0.8 [facility] Comment on above: Performed By: #### L FT3, MG3, BHB, HEMDF, TROPN, BMP3 ####[address] [place] [address] Monocytes/100 WBC (Bld) 6.9 % Normal 2.0-10.0 [facility] Comment on above: Performed By: #### L FT3, MG3, BHB, HEMDF, TROPN, BMP3 ####[facility] [place] [address] Platelet mean volume (Bld) [Entitic vol] 6.5 fL Low 7.4-10.4 [facility] Comment on above: Performed By: #### L FT3, MG3, BHB, HEMDF, TROPN, BMP3 ####[facility] [place] [address] Platelets (Bld) [#/Vol] 164 10*3/uL Normal 140-440 [facility] Comment on above: Performed By: #### L FT3, MG3, BHB, HEMDF, TROPN, BMP3 ####[place] [address] [place] [address] RBC (Bld) [#/Vol] 4.46 10*6/uL Normal 4.40-5.90 [facility] Comment on above: Performed By: #### L FT3, MG3, BHB, HEMDF, TROPN, BMP3 ####[facility] [place] [address] WBC (Bld) [#/Vol] 6.5 10*3/uL Normal 3.6-10.7 [facility] Comment on above: Performed By: #### L FT3, MG3, BHB, HEMDF, TROPN, BMP3 ####[facility] [place] [address] Hepatic Functionon 1 Albumin [Mass/Vol] 3.7 g/dL Normal 3.5-5.0 [facility] Comment on above: Performed By: #### L FT3, MG3, BHB, HEMDF, TROPN, BMP3 ####[facility] [place] [address] ALP [Catalytic activity/Vol] 80 U/L Normal 38-126 [facility] Comment on above: Performed By: #### L FT3, MG3, BHB, HEMDF, TROPN, BMP3 ####[place] [address] [place] [address] ALT [Catalytic activity/Vol] 30 U/L Normal 0-49 [facility] Comment on above: Result Comment: The ALT test is performed by an updated assay method. Please note that the reference intervals have been changed and are now sex specific. Performed By: #### L FT3, MG3, BHB, HEMDF, TROPN, BMP3 ####[place] [address] [place] [address] AST [Catalytic activity/Vol] 43 U/L Normal 15-46 [facility] Comment on above: Performed By: #### L FT3, MG3, BHB, HEMDF, TROPN, BMP3 ####[address] [place] [address] Bilirubin [Mass/Vol] 0.6 mg/dL Normal 0.2-1.3 [facility] Comment on above: Performed By: #### L FT3, MG3, BHB, HEMDF, TROPN, BMP3 ####[address] [place] [address] Bilirubin.indirect [Mass/Vol] 0.0 mg/dL Normal 0.0-0. 3 [facility] Comment on above: Performed By: #### L FT3, MG3, BHB, HEMDF, TROPN, BMP3 ####[address] [place] [address] Protein [Mass/Vol] 6.7 g/dL Normal 6.3-8.2 [facility] Comment on above: Performed By: #### L FT3, MG3, BHB, HEMDF, TROPN, BMP3 ####[address] [place] [address] Hepatic Function PanelOrdere d By: Brijesh Snell on 02-11-2021 Albumin [Mass/Vol] 3.7 g/dL 3.5 - 5.0 g/dL [facility] Work Phone: ALP (Bld) [Catalytic activity/Vol] 80 U/L 38 - 126 U/L [facility] Work Phone: [phone] [Catalytic activity/Vol] 30 U/L 0 - 49 U/L [facility] Work Phone: [phone] Comment on above: The ALT test is perf ormed by an updated assay method. Please note that the reference intervals have been changed and are now sex specific. AST [Catalytic activity/Vol] 43 U/L 15 - 46 U/L [facility] Work Phone: [phone] Bilirubin [Mass/Vol] 0.6 mg/dL 0.2 - 1 .3 mg/dL [facility] Work Phone: [phone] Bilirubin.indirect [Mass/Vol] 0.0 mg/dL 0.0 - 0.3 mg/dL [facility] Work Phone: [phone] PSA/Total PSA [Mass fraction] 6.7 g/dL 6.3 - 8.2 g/dL [facility] Work Phone: [phone] Magnesiumon 02-11-2021 Magnesium [Mass/Vol] 1.7 mg/dL Normal 1.6-2.3 [facility] [email or web address] Comment on above: Performed By: #### L FT3, MG3, BHB, HEMDF, TROPN, BMP3 ####[facility] [place] [address] MagnesiumOrdered By: Brijesh palma on 02-11-2021 Magnesium [Mass/Vol] 1.7 mg/dL 1.6 - 2 .3 mg/dL [facility] Work Phone: [phone] No Panel InformationOrdered By: Brijesh Snell on 02-11-2021 Test Performed by [facility], [address] [place], [place] [address] [facility] Work Phone: [phone] [facility] Work Phone: [phone] POCT GlucoseOrdered By: Esther Snell on 02-11-2021 Glucose [Mass/Vol] 191 mg/dL High 70 - 100 mg/dL [facility] Work Phone: [phone] Comment on above: Test performed by gl ucose meter. Results may be 10%-15% lower than serum/plasma values. (CLIA ID [id number]) Interpretation and review of laboratory results Abnormal [facility] Work Phone: [phone] Test Performed by [facility], [address] [place], [place] [address] [facility] Work Phone: [phone] [facility] Work Phone: [phone] Troponin Ion 02-11-2021 Troponin I.cardiac [Mass/Vol] ng/mL Normal 0.000-0.03 4 [facility] Comment on above: Result Comment: . Performed By: #### L FT3, MG3, BHB, HEMDF, TROPN, BMP3 ####[facility] [place] [address] Troponin t1Xsakils By: Brijesh Snell on 02-11-2021 Troponin I.cardiac [Mass/Vol] ng/mL 0.000 - 0.034 ng/mL [facility] Work Phone: [phone] Comment on above: . UrinalysisOrdered By: Brijesh Snell on 02-11-2021 Appearance (U) Clear Clear NA [facility] Work Phone: 1 Comment on above: . Bacteria, UA Few Abnormal Negative /[HPF] [facility] Work Phone: 1 Comment on above: . Bilirubin Urine Negative Negative mg/dL [facility] Work Phone: 1 Comment on above: . Color (U) Yellow Lt. Yellow NA [facility] Work Phone: 1 Comment on above: . Glucose, Ur >1,000 Abnormal Normal (<70) mg/dL [facility] Work Phone: 1 Comment on above: . Interpretation and review of laboratory results Abnormal [facility] Work Phone: [phone] Ketones Ql (U) Negative Negative mg/dL [facility] Work Phone: 1 Comment on above: . LEUKOCYTES, UA Negative Negative Caprice/uL [facility] Work Phone: 1 Comment on above: . Mucous Threads Few Negative /[LPF] [facility] Work Phone: 1 Comment on above: . Nitrite, Urine Negative Negative NA [facility] Work Phone: [phone] Comment on above: . Occult Blood,Urine Negative Negative mg/dL [facility] Work Phone: [phone] Comment on above: . pH (U) 6.0 [pH] [facility] Work Phone: [phone] Comment on above: . Protein (U) [Mass/Vol] 200 mg/dL Abnormal Negative [facility] Work Phone: [phone] Comment on above: . RBC (U) [#/Vol] Negative 0 - 2 /[HPF] [facility] Work Phone: [phone] Comment on above: . Specific Kirwin, Urine 1.022 S [facility] Work Phone: [phone] Comment on above: . Squam Epithel, UA 0-2 3 - 5 /[HPF] [facility] Work Phone: [phone] Comment on above: . Urobilinogen, Urine Normal Normal (0-1) mg/dL [facility] Work Phone: [phone] Comment on above: . WBC, UA 0-2 0 - 5 /[HPF] [facility] Work Phone: [phone] Comment on above: . Test Performed by [facility], [address] [place] [address] [facility] Work Phone: [phone] [facility] Work Phone: [phone] XR CHEST PORTABLEOrdered By: Brijesh Snell on 02-11-2021 Patient Name: SOPHIE HICKS Diagnostic Radiology ACCESSION EXAM DATE/TIME PROCEDURE ORDERING PROVIDER [id number] 02/11/2021 10:13 EDT CR Chest Portable BRIJESH SNELL CPT code 38322 Reason For Exam (CR Chest Portable) fever, dyspnea Report CLINICAL INFORMATION: Fever and shortness of breath. CHEST X-RAY, PORTABLE, 1013: An AP portable view is compared to the prior examination of 02/09/2021. The examination is slightly underpenetrated. There is elevation the right hemidiaphragm. There is no abnormality of the mediastinum or cardiac silhouette. No pleural effusion, vascular congestion, focal consolidation or pneumothorax is seen. IMPRESSION: Underpenetration. Elevation of the right hemidiaphragm. No evidence of acute cardiopulmonary process. Report Dictated on --- Final --- Dictating Physician: MD SMITH HARLAN Signed Date and Time: 02/11/2021 10:19 am Signed by: MD SMITH HARLAN Transcribed Date and Time: 02/11/2021 10:20 [facility] Work Phone: [place], [facility] From [facility] - 02/11/2021 10:20 AM EDT Patient Name: SOPHIE HICKS Diagnostic Radiology ACCESSION EXAM DATE/TIME PROCEDURE ORDERING PROVIDER [id number] 02/11/2021 10:13 EDT CR Chest Portable BRIJESH SNELL CPT code 17149 Reason For Exam (CR Chest Portable) fever, dyspnea Report CLINICAL INFORMATION: Fever and shortness of breath. CHEST X-RAY, PORTABLE, 1013: An AP portable view is compared to the prior examination of 02/09/2021. The examination is slightly underpenetrated. There is elevation the right hemidiaphragm. There is no abnormality of the mediastinum or cardiac silhouette. No pleural effusion, vascular congestion, focal consolidation or pneumothorax is seen. IMPRESSION: Underpenetration. Elevation of the right hemidiaphragm. No evidence of acute cardiopulmonary process. Report Dictated on --- Final --- Dictating Physician: MD SMITH HARLAN Signed Date and Time: 02/11/2021 10:19 am Signed by: MD SMITH HARLAN Transcribed Date and Time: 02/11/2021 10:20 [facility] Work Phone: [facility] Work Phone: Beta Hydroxybutyrateon 02-09 Beta Hydroxybutyrate 2.04 mg/dL Normal 0.20-2.81 [facility] Comment on above: Performed By: #### H EMDF, RENL3, TPUR, CRTUR, CUA2 #### [facility] [address] [place] [address] Beta-HydroxybutyrateOrdered By: Brijesh Luong on 02-09-2021 Beta-Hydroxybutyrate 2.04 mg/dL 0.20 - 2.81 mg/dL [facility] Work Phone: [phone] Test Performed by [facility] [email or web address], [address] [place], [place] [address] [facility] Work Phone: [phone] Work Phone: [phone] Brain Natriuretic PeptideOrd ered By: Brijesh Luong on 02-09-2021 Natriuretic peptide B (Bld) [Mass/Vol] 52 pg/mL 0 - 125 pg/mL [facility] Work Phone: [phone] CR Chest Portableon 02-10-20 21 CR Chest Portable Patient Name: SOPHIE HICKS Diagnostic Radiology ACCESSION EXAM DATE/TIME PROCEDURE ORDERING PROVIDER [id number] 02/09/2021 01:46 EDT CR Chest Portable MD LUONG KEVIN G CPT code 07194 Reason For Exam (CR Chest Portable) sob Report PORTABLE CHEST CLINICAL INDICATION: Shortness of breath TECHNIQUE: Portable AP COMPARISON: None FINDINGS: No focal consolidation or pulmonary edema. No pleural effusions or pneumothorax. The cardiac and mediastinal silhouettes are normal. Degenerative change of the thoracic spine is noted. IMPRESSION: No focal consolidation or pulmonary edema. Report Dictated on Final Dictating Physician: MD DALLAS KEVIN Signed Date and Time: 02/09/2021 1:51 am Signed by: MD DALLAS KEVIN Transcribed Date and Time: 02/09/2021 1:52 Normal [facility] Comp Metabolic Panelon 02-09 ALP [Catalytic activity/Vol] 87 U/L Normal 38-126 [facility] Comment on above: Performed By: #### H EMDF, RENL3, TPUR, CRTUR, CUA2 #### [facility] [employer] [facility] [address] [place] [address] Anion gap [Moles/Vol] 10 mmol/L Normal 3-13 [facility] Comment on above: Performed By: #### H EMDF, RENL3, TPUR, CRTUR, CUA2 #### [facility] [employer] [facility] [address] [place] [address] AST [Catalytic activity/Vol] 57 U/L High 15-46 [facility] Comment on above: Performed By: #### H EMDF, RENL3, TPUR, CRTUR, CUA2 #### [facility] [address] [place] [address] Bilirubin [Mass/Vol] 0.8 mg/dL Normal 0.2-1.3 [facility] Comment on above: Performed By: #### H EMDF, RENL3, TPUR, CRTUR, CUA2 #### [facility] [address] [place] [address] CO2 [Moles/Vol] 26 mmol/L Normal 22-30 [facility] Comment on above: Performed By: #### H EMDF, RENL3, TPUR, CRTUR, CUA2 #### [facility] [address] [place] [address] Creatinine [Mass/Vol] 1.15 mg/dL Normal 0.52-1.25 [facility] Comment on above: Performed By: #### H EMDF, RENL3, TPUR, CRTUR, CUA2 #### [facility] [address] [place] [address] GFR/1.73 sq M.predicted ramona g blacks MDRD (S/P/Bld) [Vol rate/Area] 81.2 mL/min/{1.73_m2} Normal >60 [facility] Comment on above: Performed By: #### H EMDF, RENL3, TPUR, CRTUR, CUA2 #### [facility] [address] [place] [address] GFR/1.73 sq M.predicted ramona g non-blacks MDRD (S/P/Bld) [Vol rate/Area] 70.1 mL/min/{1.73_m2} Normal >60 [facility] Comment on above: Result Comment: KDIG O guidelines provide the following GFR categories: Stage GFR(ml/min/1.73 m2) Terms G1 >=90 Normal or high G2 60-89 Mildly decreased* G3a 45-59 Mildly to moderately decreased G3b 30-44 Moderately to severely decreased G4 15-29 Severely decreased G5 <15 Kidney failure *Relative to young adult level. In the absence of evidence of kidney damage, neither GFR category G1 nor G2 fulfill the criteria for CKD. The CKD-EPI equation is validated in individuals 18 years of age and older. Currently the best equation for estimating glomerular filtration rate (GFR) from serum creatinine in children is the Bedside Oleary equation. It is less accurate in patients with extremes of muscle mass, restriction of dietary protein, ingestion of creatine, extra-renal metabolism of creatinine, or treatment with medications that affect renal tubular creatinine secretion. Performed By: #### H EMDF, RENL3, TPUR, CRTUR, CUA2 #### [facility] [address] [place] [address] Protein [Mass/Vol] 7.0 g/dL Normal 6.3-8.2 [facility] Comment on above: Performed By: #### H EMDF, RENL3, TPUR, CRTUR, CUA2 #### [facility] [address] [place] [address] Urea nitrogen [Mass/Vol] 18 mg/dL High 7-17 [facility] Comment on above: Performed By: #### H EMDF, RENL3, TPUR, CRTUR, CUA2 #### [facility] [address] [place] [address] Potassium [Moles/Vol] 3.8 mmol/L Normal 3.5-5.1 [facility] Comment on above: Performed By: #### H EMDF, RENL3, TPUR, CRTUR, CUA2 #### [facility] [address] [place] [address] Albumin [Mass/Vol] 3.8 g/dL Normal 3.5-5.0 [facility] Comment on above: Performed By: #### H EMDF, RENL3, TPUR, CRTUR, CUA2 #### [facility] [address] [place] [address] Chloride [Moles/Vol] 96 mmol/L Low 98-107 [facility] Comment on above: Performed By: #### H EMDF, RENL3, TPUR, CRTUR, CUA2 #### [facility] [address] [place] [address] Sodium [Moles/Vol] 132 mmol/L Low 135-145 [facility] Comment on above: Performed By: #### H EMDF, RENL3, TPUR, CRTUR, CUA2 #### [facility] [address] [place] [address] Comp Metabolic PanelOrdered By: Brijesh Luong on 02-09-2021 ALT [Catalytic activity/Vol] 32 U/L Normal 0-49 [facility] Work Phone: Comment on above: The ALT test is perf ormed by an updated assay method. Please note that the reference intervals have been changed and are now sex specific. Result Comment: The ALT test is performed by an updated assay method. Please note that the reference intervals have been changed and are now sex specific. Performed By: #### H EMDF, RENL3, TPUR, CRTUR, CUA2 #### [facility] [place] [address] Calcium [Mass/Vol] 8.7 mg/dL Normal 8.4-10.4 [facility] Work Phone: Comment on above: Performed By: #### H EMDF, RENL3, TPUR, CRTUR, CUA2 #### [facility] [address] [place] [address] Glucose [Mass/Vol] 311 mg/dL High 70-100 [facility] Work Phone: Comment on above: Performed By: #### H EMDF, RENL3, TPUR, CRTUR, CUA2 #### [facility] [address] [facility] [place] [address] Complete Urinalysison 2020 Appearance (U) Clear Normal Clear [facility] Comment on above: Result Comment: . Performed By: #### H EMDF, RENL3, TPUR, CRTUR, CUA2 #### [facility] [address] [facility] [place] [address] Bacteria LM.HPF (Urine sed) [#/Area] Negative Normal Negative [facility] Comment on above: Result Comment: . Performed By: #### H EMDF, RENL3, TPUR, CRTUR, CUA2 #### [facility] [address] [place] [address] Bilirubin,Urine Negative Normal Negative [facility] Comment on above: Result Comment: . Performed By: #### H EMDF, RENL3, TPUR, CRTUR, CUA2 #### [facility] [address] [place] [address] Cast, Hyaline 3 - 5 Abnormal Negative [facility] Comment on above: Result Comment: . Performed By: #### H EMDF, RENL3, TPUR, CRTUR, CUA2 #### [facility] [address] [place] [address] Color (U) Yellow Normal Lt. Yellow [facility] Comment on above: Result Comment: . Performed By: #### H EMDF, RENL3, TPUR, CRTUR, CUA2 #### [facility] [address] [place] [address] Glucose Ql (U) 1,000 mg/dL Abnormal Normal (<70) [facility] Comment on above: Result Comment: . Performed By: #### H EMDF, RENL3, TPUR, CRTUR, CUA2 #### [facility] [address] [place] [address] Ketone,Urine Negative Normal Negative [facility] Comment on above: Result Comment: . Performed By: #### H EMDF, RENL3, TPUR, CRTUR, CUA2 #### [facility] [address] [place] [address] Leukocytes,Urine Negative Normal Negative [facility] Comment on above: Result Comment: . Performed By: #### H EMDF, RENL3, TPUR, CRTUR, CUA2 #### [facility] [address] [place] [address] Mucous Threads Few Normal Negative [facility] Comment on above: Result Comment: . Performed By: #### H EMDF, RENL3, TPUR, CRTUR, CUA2 #### [facility] [address] [place] [address] Nitrites,Urine Negative Normal Negative [facility] Comment on above: Result Comment: . Performed By: #### H EMDF, RENL3, TPUR, CRTUR, CUA2 #### [facility] [address] [place] [address] Occult Blood,Urine 0.03 mg/dL Abnormal Negative [facility] Comment on above: Result Comment: . Performed By: #### H EMDF, RENL3, TPUR, CRTUR, CUA2 #### [facility] [address] [place] [address] pH,Urine 5.5 Normal 5.0-8.0 [facility] Comment on above: Result Comment: . Performed By: #### H EMDF, RENL3, TPUR, CRTUR, CUA2 #### [facility] [address] [place] [address] Protein (U) [Mass/Vol] 200 mg/dL Abnormal Negative [facility] Comment on above: Result Comment: . Performed By: #### H EMDF, RENL3, TPUR, CRTUR, CUA2 #### [facility] [address] [place] [address] RBC, Urine 0 - 2 Normal 0-2 [facility] Comment on above: Result Comment: . Performed By: #### H EMDF, RENL3, TPUR, CRTUR, CUA2 #### [facility] [address] [place] [address] Specific Kirwin,Urine 1.018 Normal 1.005 - 1.030 [facility] Comment on above: Result Comment: . Performed By: #### H EMDF, RENL3, TPUR, CRTUR, CUA2 #### [facility] [address] [place] [address] Squamous Epithelial 0 - 2 Normal 3-5 [facility] Comment on above: Result Comment: . Performed By: #### H EMDF, RENL3, TPUR, CRTUR, CUA2 #### [facility] [address] [place] [address] Urobilinogen,Urine Normal Normal Normal (0-1) [facility] Comment on above: Result Comment: . Performed By: #### H EMDF, RENL3, TPUR, CRTUR, CUA2 #### [facility] [employer] [facility] [address] [place] [address] WBC, Urine 3 - 5 Normal 0-5 [facility] Comment on above: Result Comment: . Performed By: #### H EMDF, RENL3, TPUR, CRTUR, CUA2 #### [facility] [address] [place] [address] Comprehensive Metabolic Pane lOrdered By: Brijesh Luong on 02-09-2021 Albumin [Mass/Vol] 3.8 g/dL 3.5 - 5.0 g/dL [facility] Work Phone: [phone] ALP (Bld) [Catalytic activity/Vol] 87 U/L 38 - 126 U/L [facility] Work Phone: [phone] Anion gap [Moles/Vol] 10 mmol/L 3 - 13 mmol/L [facility] Work Phone: [phone] [Catalytic activity/Vol] 57 U/L High 15 - 46 U/L [facility] Work Phone: [phone] Bilirubin [Mass/Vol] 0.8 mg/dL 0.2 - 1 .3 mg/dL [facility] Work Phone: [phone] Chloride [Moles/Vol] 96 mmol/L Low 98 - 10 7 mmol/L [facility] Work Phone: [phone] CO2 [Moles/Vol] 26 mmol/L 22 - 30 mmol/L [facility] Work Phone: [phone] Creatinine [Mass/Vol] 1.15 mg/dL 0.52 - 1.25 mg/dL [facility] Work Phone: [phone] EGFR IF NonAfrican [place]i 70.1 mL/min >60 [facility] Work Phone: [phone] Comment on above: KDIGO guidelines pro vide the following GFR categories: Stage GFR(ml/min/1.73 m2) Terms G1 >=90 Normal or high G2 60-89 Mildly decreased* G3a 45-59 Mildly to moderately decreased G3b 30-44 Moderately to severely decreased G4 15-29 Severely decreased G5 <15 Kidney failure *Relative to young adult level. In the absence of evidence of kidney damage, neither GFR category G1 nor G2 fulfill the criteria for CKD. The CKD-EPI equation is validated in individuals 18 years of age and older. Currently the best equation for estimating glomerular filtration rate (GFR) from serum creatinine in children is the Bedside Oleary equation. It is less accurate in patients with extremes of muscle mass, restriction of dietary protein, ingestion of creatine, extra-renal metabolism of creatinine, or treatment with medications that affect renal tubular creatinine secretion. Free PSA/Total PSA [Mass fraction] 7.0 g/dL 6.3 - 8.2 g/dL [facility] Work Phone: [phone] GFR/1.73 sq M.predicted ramona g blacks MDRD (S/P/Bld) [Vol rate/Area] 81.2 mL/min/{1.73_m2} >60 [facility] Work Phone: Interpretation and review of laboratory results Abnormal [facility] Work Phone: Potassium [Moles/Vol] 3.8 mmol/L 3.5 - 5.1 mmol/L [facility] Work Phone: [phone] Sodium [Moles/Vol] 132 mmol/L Low 135 - 145 mmol/L [facility] Work Phone: Urea nitrogen (BldV) [Mass/Vol] 18 mg/dL High 7 - 17 mg/dL [facility] Work Phone: Test Performed by [facility], [address] [place] [address] [facility] Work Phone: [facility] Work Phone: ED Provider Noteon 1 ED Provider Note Emergency Department Encounter [facility] ED Patient Identification Pt Name: Sophie Hicks Birthdate: 1965 Age: 55 y.o. Sex: male Date of evaluation: 02/09/2021 Provider: Brijesh Luong MD PCP: Naima Rodriguez MD Chief Complaint Hyperglycemia and Chest Pain History of Present Illness: Patient presents for evaluation not feeling well. Yesterday evening around 7:00 patient developed some chest discomfort and shortness of breath. Also had some abdominal discomfort and nausea vomiting during that time. The chest and abdominal pain is described as an aching pain. The patient reports shortness of breath with only mild cough. Patient has had Covid as well as his vaccines. The patient notes that his sugar was 499 at 7:00 and he took 24 units of Lantus. He contacted his doctor and they advised him to recheck it at midnight. It was still high at midnight and he was instructed to give himself an extra 10 more units of Lantus. The patient continued to feel unwell and he was brought to the hospital for further evaluation. Patient is also complaining of some blurry vision. Otherwise denies any focal numbness or focal weakness, fevers, diarrhea, dysuria. Review of Systems: Constitutional: Hyperglycemia Eyes: Blurry vision Ears, Nose, Mouth, Throat: Denies difficulty swallowing Cardiovascular: chest pain Respiratory: difficulty breathing Gastroinestinal: Nausea Genitourinary: Denies bladder incontinence Musculoskeletal: Denies extremity swelling Integumentary: Denies rash Neurologic: Denies headache History: I have reviewed the following nursing documentation: Past Medical History: Diagnosis Date ? Abdominal pain ? Atrial fibrillation (HCC) ? Back pain ? Benign essential HTN 01/29/2015 ? Blood circulation, collateral ? CAD (coronary artery disease) mild - dx on cath - neg stress ? Cerebral artery occlusion with cerebral infarction (HCC) ? CHF (congestive heart failure) (HCC) ? Chronic kidney disease ? COPD (chronic obstructive pulmonary disease) ([facility]) ? COVID-19 05/03 ? COVID-19 vaccine series completed 09/25/2020 Moderna ? CS (cervical spondylosis) 12/25/2004 CERVICAL SPINE DJD ? Difficulty sleeping ? Dizziness ? GERD (gastroesophageal reflux disease) ? History of colonic polyps 06/21/2013 repeat 2019 ? Hyperlipidemia ? Insomnia 08/15/2014 ? Joint pain, hip ? Joint pain, knee ? Memory difficulties ? Muscle weakness ? Peripheral polyneuropathy 09/30/2020 ? Shortness of breath at rest ? Snoring ? SOBOE (shortness of breath on exertion) Past Surgical History: Procedure Laterality Date ? APPENDECTOMY ? COLONOSCOPY 2020 ? CYSTOSCOPY 10/26/2020 ? CYSTOSCOPY 11/19/2020 ? ENDOSCOPY, COLON, DIAGNOSTIC ? NECK SURGERY Posterior cervical fusion ? ROTATOR CUFF REPAIR Bilateral ? UPPER GASTROINTESTINAL ENDOSCOPY 01/24/2021 Dr. Cabello Previous Medications ACETAMINOPHEN (TYLENOL) 500 MG TABLET Take 2 tablets by mouth 4 times daily as needed for Pain ALBUTEROL SULFATE HFA (VENTOLIN HFA) 108 (90 BASE) MCG/ACT INHALER Inhale 2 puffs into the lungs 4 times daily as needed for Wheezing Use every Four hours for the next 2 days then May switch to every four hours as needed. ASPIRIN 81 MG CHEWABLE TABLET Take 81 mg by mouth daily ATORVASTATIN (LIPITOR) 80 MG TABLET Take 1 tablet by mouth nightly BACLOFEN (LIORESAL) 10 MG TABLET Take 10 mg by mouth 3 times daily prn CYCLOBENZAPRINE (FLEXERIL) 10 MG TABLET Take 10 mg by mouth 3 times daily as needed for Muscle spasms CYCLOPHOSPHAMIDE (CYTOXAN) 50 MG CAPS CAPSULE Take 3 capsules by mouth 2 times daily DICYCLOMINE (BENTYL) 10 MG CAPSULE Take 1 capsule by mouth 3 times daily (before meals) ERYTHROMYCIN (ROMYCIN) 5 MG/GM OPHTHALMIC OINTMENT Apply to your eye 4 times a day FLUTICASONE-SALMETE ROL (ADVAIR DISKUS) 250-50 MCG/DOSE AEPB Inhale 1 puff into the lungs every 12 hours FUROSEMIDE (LASIX) 40 MG TABLET Take 80 mg by mouth 2 times daily METOLAZONE (ZAROXOLYN) 2.5 MG TABLET Take 1 tablet by mouth daily Take 30min before torsemide METOLAZONE (ZAROXOLYN) 2.5 MG TABLET Take 1 tablet by mouth three times a week OXYBUTYNIN (DITROPAN XL) 10 MG EXTENDED RELEASE TABLET Take 1 tablet by mouth daily PANTOPRAZOLE (PROTONIX) 40 MG TABLET Take 1 tablet by mouth 2 times daily (with meals) POTASSIUM CHLORIDE (KLOR-CON) 20 MEQ PACKET Take 20 mEq by mouth 2 times daily PREDNISONE (DELTASONE) 20 MG TABLET Take 20 mg by mouth daily 4 tabs daily total 80mg PROMETHAZINE (PHENERGAN) 12.5 MG TABLET Take 12.5 mg by mouth every 8 hours as needed for Nausea SENNOSIDES-DOCUSATE SODIUM (SENOKOT-S) 8.6-50 MG TABLET Take 1 tablet by mouth daily as needed for Constipation SULFAMETHOXAZOLE-TR IMETHOPRIM (BACTRIM DS;SEPTRA DS) 800-160 MG PER TABLET Take 1 tablet by mouth three times a week TAMSULOSIN (FLOMAX) 0.4 MG CAPSULE Take 0.4 mg by mouth daily TORSEMIDE (DEMADEX) 20 (more content not included)... Normal [facility] Glucose,Bedsideon 02-09-2021 Glucose [Mass/Vol] 261 mg/dL High 70-100 [facility] Comment on above: Result Comment: Test performed by glucose meter. Results may be 10%-15% lower than serum/plasma values. (CLIA ID [id number]) Performed By: #### H EMDF, RENL3, TPUR, CRTUR, CUA2 #### [facility] [address] [place] [address] Glucose [Mass/Vol] 338 mg/dL High 70-100 [facility] Comment on above: Result Comment: Test performed by glucose meter. Results may be 10%-15% lower than serum/plasma values. (CLIA ID [id number]) Performed By: #### H EMDF, RENL3, TPUR, CRTUR, CUA2 #### [facility] [address] [place] [address] Hemogram (CBC) w/Auto DiffOr dered By: Brijesh Luong on 02-09-2021 Absolute Baso # 0.1 10*3/uL 0.0 - 0.2 10*3/uL [facility] Work Phone: 1 22 Absolute Neut # 5.4 10*3/uL 1.8 - 7.0 10*3/uL [facility] Work Phone: 1 22 Basophils/100 WBC (Bld) 0.9 % 0.0 - 2.0 % [facility] Work Phone: 22 Eosinophils (Bld) [#/Vol] 0.3 10*3/uL 0. 0 - 0.5 10*3/uL [facility] Work Phone: 1) 22 Eosinophils/100 WBC (Bld) 3.6 % 1. 0 - 6.0 % [facility] Work Phone: 1) 22 Granulocytes/100 WBC (Bld) 67.1 % 4 0.0 - 80.0 % [facility] Work Phone: 1 22 Hematocrit (Bld) [Volume fraction] 39.6 % Low 40.0 - 52.0 % [facility] Work Phone: 22 Hemoglobin.gastrointestinal spec 1 Ql (Stl) 13.2 g/dL 13.0 - 18.0 g/dL [facility] Work Phone: 1 Interpretation and review of laboratory results Abnormal [facility] Work Phone: 1 Lymphocytes (Bld) [#/Vol] 1.7 10*3/uL 1. 0 - 4.3 10*3/uL [facility] Work Phone: 1 Lymphocytes/100 WBC (Bld) 20.5 % 20 .0 - 40.0 % [facility] Work Phone: 1 MCH (RBC) [Entitic mass] 27.8 pg 26. 0 - 34.0 pg [facility] Work Phone: MCHC (RBC) [Mass/Vol] 33.3 % 32.0 - 36.0 % [facility] Work Phone: MCV (RBC) [Entitic vol] 83.5 fL 80.0 - 98.0 fL [facility] Work Phone: Monocytes (Bld) [#/Vol] 0.6 10*3/uL 0.0 - 0.8 10*3/uL [facility] Work Phone: Monocytes/100 WBC (Bld) 7.9 % 2.0 - 10.0 % [facility] Work Phone: Platelet distribution width (Bld) [Ratio] 14.3 % 11.5 - 14.5 % [employer] Phone: Platelet mean volume (Bld) [Entitic vol] 6.3 fL Low 7.4 - 10.4 fL [facility] Work Phone: Platelets (Bld) [#/Vol] 192 10*3/uL 140 - 440 10*3/uL [facility] Work Phone: RBC (Bld) [#/Vol] 4.74 10*6/uL 4.40 - 5.90 10*6/uL [facility] Work Phone: WBC (Bld) [#/Vol] 8.1 10*3/uL 3.6 - 10.7 10*3/uL [facility] Work Phone: Test Performed by [facility], [address], [place], [place] [address] [facility] Work Phone: [phone] [facility] Work Phone: [phone] Hemogram w/ Autodiffon 02-09 Abs Baso Cnt 0.1 10*3/uL Normal 0.0-0.2 [facility] Comment on above: Performed By: #### H EMDF, RENL3, TPUR, CRTUR, CUA2 #### [facility] [address] [place] [address] Abs Neutrophile Cnt 5.4 10*3/uL Normal 1.8-7.0 [facility] Comment on above: Performed By: #### H EMDF, RENL3, TPUR, CRTUR, CUA2 #### [facility] [address] [place] [address] Basophils/100 WBC (Bld) 0.9 % Normal 0.0-2.0 S [facility] Comment on above: Performed By: #### H EMDF, RENL3, TPUR, CRTUR, CUA2 #### [facility] [address] [place] [address] Eosinophils (Bld) [#/Vol] 0.3 10*3/uL Normal 0.0-0.5 [facility] Comment on above: Performed By: #### H EMDF, RENL3, TPUR, CRTUR, CUA2 #### [facility] [address] [place] [address] Eosinophils/100 WBC (Bld) 3.6 % Normal 1.0-6.0 [facility] Comment on above: Performed By: #### H EMDF, RENL3, TPUR, CRTUR, CUA2 #### [facility] [address] [place] [address] Erythrocyte distribution width (RBC) [Ratio] 14.3 % Normal 11.5-14.5 [facility] Comment on above: Performed By: #### H EMDF, RENL3, TPUR, CRTUR, CUA2 #### [facility] [address] [place] [address] Granulocytes/100 WBC (Bld) 67.1 % Normal 40.0-80.0 [facility] Comment on above: Performed By: #### H EMDF, RENL3, TPUR, CRTUR, CUA2 #### [facility] [address] [place] [address] Hematocrit (Bld) [Volume fraction] 39.6 % Low 40.0-52.0 [facility] Comment on above: Performed By: #### H EMDF, RENL3, TPUR, CRTUR, CUA2 #### [facility] [address] [place] [address] Hemoglobin (Bld) [Mass/Vol] 13.2 g/dL Normal 13.0-18. 0 [facility] Comment on above: Performed By: #### H EMDF, RENL3, TPUR, CRTUR, CUA2 #### [address] [place] [address] Lymphocytes (Bld) [#/Vol] 1.7 10*3/uL Normal 1.0-4.3 [facility] Comment on above: Performed By: #### H EMDF, RENL3, TPUR, CRTUR, CUA2 #### [address] [address] Lymphocytes/100 WBC (Bld) 20.5 % Normal 20.0-40.0 [facility] Comment on above: Performed By: #### H EMDF, RENL3, TPUR, CRTUR, CUA2 #### [address] [place] [address] MCH (RBC) [Entitic mass] 27.8 pg Normal 26.0-34.0 [facility] Comment on above: Performed By: #### H EMDF, RENL3, TPUR, CRTUR, CUA2 #### [address] [place] [address] MCHC 33.3 % Normal 32.0-36.0 [facility] Comment on above: Performed By: #### H EMDF, RENL3, TPUR, CRTUR, CUA2 #### [address] [place] [address] MCV (RBC) [Entitic vol] 83.5 fL Normal 80.0-98.0 S [facility] Comment on above: Performed By: #### H EMDF, RENL3, TPUR, CRTUR, CUA2 #### [facility] [address] [place] [address] Monocytes (Bld) [#/Vol] 0.6 10*3/uL Normal 0.0-0.8 [facility] Comment on above: Performed By: #### H EMDF, RENL3, TPUR, CRTUR, CUA2 #### [facility] [address] [place] [address] Monocytes/100 WBC (Bld) 7.9 % Normal 2.0-10.0 S [facility] Comment on above: Performed By: #### H EMDF, RENL3, TPUR, CRTUR, CUA2 #### [facility] [address] [place] [address] Platelet mean volume (Bld) [Entitic vol] 6.3 fL Low 7.4-10.4 [facility] Comment on above: Performed By: #### H EMDF, RENL3, TPUR, CRTUR, CUA2 #### [facility] [address] [place] [address] Platelets (Bld) [#/Vol] 192 10*3/uL Normal 140-440 [facility] Comment on above: Performed By: #### H EMDF, RENL3, TPUR, CRTUR, CUA2 #### [facility] [address] [place] [address] RBC (Bld) [#/Vol] 4.74 10*6/uL Normal 4.40-5.90 [facility] Comment on above: Performed By: #### H EMDF, RENL3, TPUR, CRTUR, CUA2 #### [facility] [address] [place] [address] WBC (Bld) [#/Vol] 8.1 10*3/uL Normal 3.6-10.7 [facility] Comment on above: Performed By: #### H EMDF, RENL3, TPUR, CRTUR, CUA2 #### [facility] [address] [place] [address] NT pro BNPon 02-09-2021 Natriuretic peptide B (Bld) [Mass/Vol] 52 pg/mL Normal 0-125 [facility] Comment on above: Performed By: #### H EMDF, RENL3, TPUR, CRTUR, CUA2 #### [facility] [employer] [facility] [address] [place] [address] No Panel InformationOrdered By: Brijesh Luong on 02-09-2021 Test Performed by [facility], [address] [place] [address] [facility] Work Phone: 1 [facility] Work Phone: 1 Interpretation and review of laboratory results Abnormal [facility] Work Phone: 1 Test Performed by [facility], [address] [address] [facility] Work Phone: 1 [facility] Work Phone: 1 POCT GlucoseOrdered By: Esther Luong on 02-09-2021 Glucose [Mass/Vol] 261 mg/dL High 70 - 100 mg/dL [facility] Work Phone: 1 Comment on above: Test performed by gl ucose meter. Results may be 10%-15% lower than serum/plasma values. (CLIA ID [id number]) Interpretation and review of laboratory results Abnormal [facility] Work Phone: 1 Test Performed by [facility], [address] [place] [address] [facility] Work Phone: 1 [facility] Work Phone: 1 Glucose [Mass/Vol] 338 mg/dL High 70 - 100 mg/dL [facility] Work Phone: 1 Comment on above: Test performed by gl ucose meter. Results may be 10%-15% lower than serum/plasma values. (CLIA ID [id number]) POCT VenousOrdered By: Brijesh Luong on 02-09-2021 Base Excess, Jake 2.6 mmol/L -3.0 - 3.0 mmol/L [facility] Work Phone: [phone] HCO3 (Bld) [Moles/Vol] 27.7 mmol/L High 23.0 - 27.0 mmol/L [facility] Work Phone: [phone] Oxygen saturation in Blood 93.3 % High 6 0.0 - 80.0 % [facility] Work Phone: [phone] pCO2, Jake 43.8 mm[Hg] 40.0 - 55.0 mm[Hg] [facility] Work Phone: [phone] pH, Jake 7.410 [facility] Work Phone: [phone] pO2, Jake 67.8 mm[Hg] High 30.0 - 50.0 mm[Hg] [facility] Work Phone: [phone] (Calc), Jake 29.1 mmol/L High 24.0 - 28.0 mmol/L [facility] Work Phone: [phone] Comment on above: Performed by CLIA ID : [id number] [facility] Troponin Ion 02-09-2021 Troponin I.cardiac [Mass/Vol] ng/mL Normal 0.000-0.03 4 [facility] Comment on above: Result Comment: . Performed By: #### H EMDF, RENL3, TPUR, CRTUR, CUA2 #### [facility] [address] [place] [address] Troponin I.cardiac [Mass/Vol] ng/mL Normal 0.000-0.03 4 [facility] Comment on above: Result Comment: . Performed By: #### H EMDF, RENL3, TPUR, CRTUR, CUA2 #### [facility] [address] [place] [address] Troponin [id number] By: Brijesh Luong on 02-09-2021 Troponin I.cardiac [Mass/Vol] ng/mL 0.000 - 0.034 ng/mL [facility] Work Phone: [phone] Comment on above: . Test Performed by [facility], [address], [place], [place] [address] [facility] Work Phone: [phone] [facility] Work Phone: [phone] Troponin I.cardiac [Mass/Vol] ng/mL 0.000 - 0.034 ng/mL [facility] Work Phone: [phone] Comment on above: . UrinalysisOrdered By: Brijesh Luong on 02-09-2021 Appearance (U) Clear Clear NA [facility] Work Phone: [phone] Comment on above: . Bacteria, UA Negative Negative /[HPF] [facility] Work Phone: [phone] Comment on above: . Bilirubin Urine Negative Negative mg/dL [facility] Work Phone: [phone] Comment on above: . Color (U) Yellow Lt. Yellow NA [facility] Work Phone: [phone] Comment on above: . Glucose, Ur 1,000 Abnormal Normal (<70) mg/dL [facility] Work Phone: [phone] Comment on above: . Hyaline Casts, UA 3-5 Abnormal Negative /[LPF] [facility] Work Phone: [phone] Comment on above: . Interpretation and review of laboratory results Abnormal [facility] Work Phone: [phone] Ketones Ql (U) Negative Negative mg/dL [facility] Work Phone: [phone] Comment on above: . LEUKOCYTES, UA Negative Negative Caprice/uL [facility] Work Phone: [phone] Comment on above: . Mucous Threads Few Negative /[LPF] [facility] Work Phone: [phone] Comment on above: . Nitrite, Urine Negative Negative NA [facility] Work Phone: [phone] Comment on above: . Occult Blood,Urine 0.03 mg/dL Abnormal Negative [facility] Work Phone: [phone] Comment on above: . pH (U) 5.5 [pH] [facility] Work Phone: [phone] Comment on above: . Protein (U) [Mass/Vol] 200 mg/dL Abnormal Negative [facility] Work Phone: [phone] Comment on above: . RBC, UA 0-2 0 - 2 /[HPF] [facility] Work Phone: [phone] Comment on above: . Specific Kirwin, Urine 1.018 [facility] Work Phone: [phone] Comment on above: . Squam Epithel, UA 0-2 3 - 5 /[HPF] [facility] Work Phone: [phone] Comment on above: . Urobilinogen, Urine Normal Normal (0-1) mg/dL [facility] Work Phone: [phone] Comment on above: . WBC, UA 3-5 0 - 5 /[HPF] [facility] Work Phone: [phone] Comment on above: . Test Performed by [facility], [address] [place], [place] [address] [facility] Work Phone: [phone] [facility] Work Phone: [phone] Venous Blood Gas Respiratory on 02-09-2021 Base Excess 2.6 mmol/L Normal -3.0-3.0 [facility] Comment on above: Performed By: #### H EMDF, RENL3, TPUR, CRTUR, CUA2 #### [facility] [email or web address] [address] [place] [address] CO2 [Moles/Vol] 29.1 mmol/L High 24.0-28.0 [facility] Comment on above: Result Comment: Perf ormed by ASHLYN ID: [id number] [place], [place] Performed By: #### H EMDF, RENL3, TPUR, CRTUR, CUA2 #### [facility] [email or web address] [address] [place] [address] HCO3 (Bld) [Moles/Vol] 27.7 mmol/L High 23.0-27.0 [facility] Comment on above: Performed By: #### H EMDF, RENL3, TPUR, CRTUR, CUA2 #### [facility] [email or web address] [address] [place] [address] Oxygen (Bld) [Partial pressure] 67.8 mm[Hg] High 30.0-50.0 [facility] Comment on above: Performed By: #### H EMDF, RENL3, TPUR, CRTUR, CUA2 #### [facility] [employer] [facility] [address] [place] [address] Oxygen saturation in Blood 93.3 % High 60.0-80.0 [facility] Comment on above: Performed By: #### H EMDF, RENL3, TPUR, CRTUR, CUA2 #### [facility] [address] [place] [address] pCO2 43.8 mm[Hg] Normal 40.0-55.0 [facility] Comment on above: Performed By: #### H EMDF, RENL3, TPUR, CRTUR, CUA2 #### [facility] [address] [place] [address] pH 7.410 Normal 7.330-7.43 0 [facility] Comment on above: Performed By: #### H EMDF, RENL3, TPUR, CRTUR, CUA2 #### [facility] [address] [place] [address] XR CHEST PORTABLEOrdered By: Brijesh Luong on 02-09-2021 Patient Name: SOPHIE HICKS Diagnostic Radiology ACCESSION EXAM DATE/TIME PROCEDURE ORDERING PROVIDER [id number] 02/09/2021 01:46 EDT CR Chest Portable MD LUONG KEVIN G CPT code 47088 Reason For Exam (CR Chest Portable) sob Report PORTABLE CHEST CLINICAL INDICATION: Shortness of breath TECHNIQUE: Portable AP COMPARISON: None FINDINGS: No focal consolidation or pulmonary edema. No pleural effusions or pneumothorax. The cardiac and mediastinal silhouettes are normal. Degenerative change of the thoracic spine is noted. IMPRESSION: No focal consolidation or pulmonary edema. Report Dictated on --- Final --- Dictating Physician: MD DALLAS KEVIN Signed Date and Time: 02/09/2021 1:51 am Signed by: MD DALLAS KEVIN Transcribed Date and Time: 02/09/2021 1:52 [facility] Work Phone: [place], [facility] From [facility] - 02/09/2021 1:53 AM EDT Patient Name: SOPHIE HICKS Diagnostic Radiology ACCESSION EXAM DATE/TIME PROCEDURE ORDERING PROVIDER [id number] 02/09/2021 01:46 EDT CR Chest Portable MD LUONG KEVIN G CPT code 49770 Reason For Exam (CR Chest Portable) sob Report PORTABLE CHEST CLINICAL INDICATION: Shortness of breath TECHNIQUE: Portable AP COMPARISON: None FINDINGS: No focal consolidation or pulmonary edema. No pleural effusions or pneumothorax. The cardiac and mediastinal silhouettes are normal. Degenerative change of the thoracic spine is noted. IMPRESSION: No focal consolidation or pulmonary edema. Report Dictated on --- Final --- Dictating Physician: MD DALLAS KEVIN Signed Date and Time: 02/09/2021 1:51 am Signed by: MD DALLAS KEVIN Transcribed Date and Time: 02/09/2021 1:52 [facility] Work Phone: [facility] Work Phone: ENDOSCOPY REPORTOrdered B y: 3m Scanning on 01-24-2021 [facility] Work Phone: Surgical Pathologyon [facility] Surgical Pathology [id number] [facility] PATHOLOGY AND LABORATORY MEDICINE [address] [place], [place] [id number] FINAL SURGICAL PATHOLOGY REPORT NAME: SOPHIE HICKS Jordyn MRLala [id number] : 1965 55 Y M BILLING NO.: [id number] LOCATION: 1XEO PROCEDURE 01/24/2021 DATE: SURGEON: LOUISA CABELLO DO RECEIVED 01/25/2021 DATE: ATTENDING: LOUISA CABELLO DO REPORT DATE: 01/29/2021 COPIES TO: DIAGNOSIS: STOMACH, ANTRUM, BIOPSY - REACTIVE GASTROPATHY Comment: Negative for Helicobacter pylori, intestinal metaplasia, dysplasia, or malignancy HCK/HCK Signature> KINGSLEY NINO M.D. CLINICAL INFORMATION: GERD SPECIMEN: GASTRIC BIOPSY GROSS DESCRIPTION: Received in formalin labeled antral biopsy is an irregular-shaped segment of pink-red soft tissue measuring 0.4 x 0.4 x 0.2 cm. Submitted in one cassette. BSC/JAM Disclaimer: The following statement applies to all immunohistochemistr y, in situ hybridization, molecular studies, and immunofluorescence testing. The use of one or more reagents in the above tests is regulated as an analyte specific reagent (ASR). These tests were developed and their performance characteristics determined by the clinical laboratories of [facility]. They have not been cleared by the US Food and Drug Administration (FDA). The FDA has determined that such clearance or approval is not necessary. All the above immunostains were performed on paraffin embedded tissue. Appropriate positive and negative controls (where applicable) were run in parallel with the patient's specimen; these controls showed expected staining pattern, with acceptable intensity of staining. Immunohistochemical assays have not been validated on decalcified tissues. Results should be interpreted with caution given the raised possibility of false negativity on decalcified specimens. Professional Performing Location: [address] [address]. DEPARTMENT OF PATHOLOGY AND LABORATORY MEDICINE [place], [place] [address] [email or web address] Normal [facility] CBC Auto DifferentialOrdered By: Mikey Bauman on 01-14-2021 Absolute Baso # 0.1 10*3/uL 0.0 - 0.2 10*3/uL [facility] Work Phone: 1 22 Absolute Neut # 7.0 10*3/uL 1.8 - 7.0 10*3/uL [facility] Work Phone: 1 22 Basophils/100 WBC (Bld) 1.0 % 0.0 - 2.0 % [facility] Work Phone: 1 Eosinophils (Bld) [#/Vol] 0.2 10*3/uL 0. 0 - 0.5 10*3/uL [facility] Work Phone: 1 22 Eosinophils/100 WBC (Bld) 2.4 % 1. 0 - 6.0 % [facility] Work Phone: 1 22 Granulocytes/100 WBC (Bld) 73.6 % 4 0.0 - 80.0 % [facility] Work Phone: Hematocrit (Bld) [Volume fraction] 40.3 % 40.0 - 52.0 % [facility] Work Phone: 22 Hemoglobin.gastrointestinal spec 1 Ql (Stl) 13.9 g/dL 13.0 - 18.0 g/dL [facility] Work Phone: 1 Interpretation and review of laboratory results Abnormal [facility] Work Phone: 1 22 Lymphocytes (Bld) [#/Vol] 1.5 10*3/uL 1. 0 - 4.3 10*3/uL [facility] Work Phone: 1 22 Lymphocytes/100 WBC (Bld) 16.0 % Low 20 .0 - 40.0 % [facility] Work Phone: MCH (RBC) [Entitic mass] 29.0 pg 26. 0 - 34.0 pg [facility] Work Phone: 1 22 MCHC (RBC) [Mass/Vol] 34.6 % 32.0 - 36.0 % [facility] Work Phone: 1 MCV (RBC) [Entitic vol] 83.8 fL 80.0 - 98.0 fL [facility] Work Phone: Monocytes (Bld) [#/Vol] 0.7 10*3/uL 0.0 - 0.8 10*3/uL [facility] Work Phone: 1 Monocytes/100 WBC (Bld) 7.0 % 2.0 - 10.0 % [facility] Work Phone: 1 Platelet distribution width (Bld) [Ratio] 14.3 % 11.5 - 14.5 % [facility] Work Phone: 1 Platelet mean volume (Bld) [Entitic vol] 6.2 fL Low 7.4 - 10.4 fL [facility] Work Phone: Platelets (Bld) [#/Vol] 269 10*3/uL 140 - 440 10*3/uL [facility] Work Phone: RBC (Bld) [#/Vol] 4.81 10*6/uL 4.40 - 5.90 10*6/uL [facility] Work Phone: WBC (Bld) [#/Vol] 9.5 10*3/uL 3.6 - 10.7 10*3/uL [facility] Work Phone: 1 Test Performed by [facility] [employer] [facility], [address] Work Phone: [facility] Work Phone: Creatinine, Random UrineOrde red By: Mikey Bauman on 01-14-2021 Creatinine (U) [Mass/Vol] 161.4 mg/dL No Range [facility] Work Phone: 1 Test Performed by [facility] [employer] [facility], [address] Work Phone: [facility] Work Phone: 1 Creatinine, Ur Randomon 10-0 Creatinine, Ur Random 161.4 mg/dL Normal No Range [facility] Comment on above: Performed By: #### H EMDF, RENL3, TPUR, CRTUR, CUA2 #### [facility] [address] [place] [address] Hemogram w/ Autodiffon 01-14 Abs Baso Cnt 0.1 10*3/uL Normal 0.0-0.2 [facility] Comment on above: Performed By: #### H EMDF, RENL3, TPUR, CRTUR, CUA2 #### [facility] [address] [place] [address] Abs Neutrophile Cnt 7.0 10*3/uL Normal 1.8-7.0 [facility] Comment on above: Performed By: #### H EMDF, RENL3, TPUR, CRTUR, CUA2 #### [address] [place] [address] Basophils/100 WBC (Bld) 1.0 % Normal 0.0-2.0 [facility] Comment on above: Performed By: #### H EMDF, RENL3, TPUR, CRTUR, CUA2 #### [address] [place] [address] Eosinophils (Bld) [#/Vol] 0.2 10*3/uL Normal 0.0-0.5 [facility] Comment on above: Performed By: #### H EMDF, RENL3, TPUR, CRTUR, CUA2 #### [address] [place] [address] Eosinophils/100 WBC (Bld) 2.4 % Normal 1.0-6.0 [facility] Comment on above: Performed By: #### H EMDF, RENL3, TPUR, CRTUR, CUA2 #### [address] [address] Erythrocyte distribution width (RBC) [Ratio] 14.3 % Normal 11.5-14.5 [facility] Comment on above: Performed By: #### H EMDF, RENL3, TPUR, CRTUR, CUA2 #### [address] [place] [address] Granulocytes/100 WBC (Bld) 73.6 % Normal 40.0-80.0 [facility] Comment on above: Performed By: #### H EMDF, RENL3, TPUR, CRTUR, CUA2 #### [facility] [address] [place] [address] Hematocrit (Bld) [Volume fraction] 40.3 % Normal 40.0-52.0 [facility] Comment on above: Performed By: #### H EMDF, RENL3, TPUR, CRTUR, CUA2 #### [facility] [address] [place] [address] Hemoglobin (Bld) [Mass/Vol] 13.9 g/dL Normal 13.0-18. 0 [facility] Comment on above: Performed By: #### H EMDF, RENL3, TPUR, CRTUR, CUA2 #### [address] [place] [address] Lymphocytes (Bld) [#/Vol] 1.5 10*3/uL Normal 1.0-4.3 [facility] Comment on above: Performed By: #### H EMDF, RENL3, TPUR, CRTUR, CUA2 #### [address] [place] [address] Lymphocytes/100 WBC (Bld) 16.0 % Low 20.0-40.0 [facility] Comment on above: Performed By: #### H EMDF, RENL3, TPUR, CRTUR, CUA2 #### [facility] [address] [place] [address] MCH (RBC) [Entitic mass] 29.0 pg Normal 26.0-34.0 [facility] Comment on above: Performed By: #### H EMDF, RENL3, TPUR, CRTUR, CUA2 #### [address] [place] [address] MCHC 34.6 % Normal 32.0-36.0 [facility] Comment on above: Performed By: #### H EMDF, RENL3, TPUR, CRTUR, CUA2 #### [address] [place] [address] MCV (RBC) [Entitic vol] 83.8 fL Normal 80.0-98.0 [facility] Comment on above: Performed By: #### H EMDF, RENL3, TPUR, CRTUR, CUA2 #### [facility] [address] [place] [address] Monocytes (Bld) [#/Vol] 0.7 10*3/uL Normal 0.0-0.8 [facility] Comment on above: Performed By: #### H EMDF, RENL3, TPUR, CRTUR, CUA2 #### [facility] [address] [place] [address] Monocytes/100 WBC (Bld) 7.0 % Normal 2.0-10.0 [facility] Comment on above: Performed By: #### H EMDF, RENL3, TPUR, CRTUR, CUA2 #### [facility] [address] [place] [address] Platelet mean volume (Bld) [Entitic vol] 6.2 fL Low 7.4-10.4 [facility] Comment on above: Performed By: #### H EMDF, RENL3, TPUR, CRTUR, CUA2 #### [facility] [address] [place] [address] Platelets (Bld) [#/Vol] 269 10*3/uL Normal 140-440 [facility] [place] Comment on above: Performed By: #### H EMDF, RENL3, TPUR, CRTUR, CUA2 #### [facility] [address] [place] [address] RBC (Bld) [#/Vol] 4.81 10*6/uL Normal 4.40-5.90 [facility] Comment on above: Performed By: #### H EMDF, RENL3, TPUR, CRTUR, CUA2 #### [facility] [address] [place] [address] WBC (Bld) [#/Vol] 9.5 10*3/uL Normal 3.6-10.7 [facility] Comment on above: Performed By: #### H EMDF, RENL3, TPUR, CRTUR, CUA2 #### [facility] [address] [place] [address] Protein, Ur Randomon 021 Protein, Ur Random 500 mg/dL High No Range [facility] Comment on above: Performed By: #### H EMDF, RENL3, TPUR, CRTUR, CUA2 #### [facility] [address] [place] [address] Protein, urine, randomOrdere d By: Mikey Bauman on 01-14-2021 Interpretation and review of laboratory results Abnormal [facility] Work Phone: Protein (U) [Mass/Vol] 500 mg/dL High No Range [facility] Work Phone: Test Performed by [facility], [address] , [place], [place] [id number] [place] [address] Work Phone: [phone] [facility] Work Phone: Renal Functionon 01-14-2021 Calcium [Mass/Vol] 9.6 mg/dL Normal 8.4-10.4 [facility] Comment on above: Performed By: #### H EMDF, RENL3, TPUR, CRTUR, CUA2 #### [facility] [address] [place] [address] Anion gap [Moles/Vol] 8 mmol/L Normal 3-13 [facility] Comment on above: Performed By: #### H EMDF, RENL3, TPUR, CRTUR, CUA2 #### [facility] [address] [place] [address] CO2 [Moles/Vol] 30 mmol/L Normal 22-30 [facility] Comment on above: Performed By: #### H EMDF, RENL3, TPUR, CRTUR, CUA2 #### [facility] [address] [place] [address] Creatinine [Mass/Vol] 1.18 mg/dL Normal 0.52-1.25 [facility] Comment on above: Performed By: #### H EMDF, RENL3, TPUR, CRTUR, CUA2 #### [facility] [address] [place] [address] GFR/1.73 sq M.predicted ramona g blacks MDRD (S/P/Bld) [Vol rate/Area] 78.8 mL/min/{1.73_m2} Normal >60 [facility] Comment on above: Performed By: #### H EMDF, RENL3, TPUR, CRTUR, CUA2 #### [facility] [address] [place] [address] GFR/1.73 sq M.predicted ramona g non-blacks MDRD (S/P/Bld) [Vol rate/Area] 68.0 mL/min/{1.73_m2} Normal >60 [facility] Comment on above: Result Comment: KDIG O guidelines provide the following GFR categories: Stage GFR(ml/min/1.73 m2) Terms G1 >=90 Normal or high G2 60-89 Mildly decreased* G3a 45-59 Mildly to moderately decreased G3b 30-44 Moderately to severely decreased G4 15-29 Severely decreased G5 <15 Kidney failure *Relative to young adult level. In the absence of evidence of kidney damage, neither GFR category G1 nor G2 fulfill the criteria for CKD. The CKD-EPI equation is validated in individuals 18 years of age and older. Currently the best equation for estimating glomerular filtration rate (GFR) from serum creatinine in children is the Bedside Oleary equation. It is less accurate in patients with extremes of muscle mass, restriction of dietary protein, ingestion of creatine, extra-renal metabolism of creatinine, or treatment with medications that affect renal tubular creatinine secretion. Performed By: #### H EMDF, RENL3, TPUR, CRTUR, CUA2 #### [facility] [address] [place] [address] Glucose [Mass/Vol] 235 mg/dL High 70-100 [facility] Comment on above: Performed By: #### H EMDF, RENL3, TPUR, CRTUR, CUA2 #### [facility] [address] [place] [address] Phosphate [Mass/Vol] 3.2 mg/dL Normal 2.5-4.5 [facility] Comment on above: Performed By: #### H EMDF, RENL3, TPUR, CRTUR, CUA2 #### [facility] [address] [place] [address] Urea nitrogen [Mass/Vol] 20 mg/dL High 7-17 [facility] Comment on above: Performed By: #### H EMDF, RENL3, TPUR, CRTUR, CUA2 #### [facility] [address] [place] [address] Albumin [Mass/Vol] 3.8 g/dL Normal 3.5-5.0 [facility] Comment on above: Performed By: #### H EMDF, RENL3, TPUR, CRTUR, CUA2 #### [facility] [address] [place] [address] Chloride [Moles/Vol] 95 mmol/L Low 98-107 [facility] Comment on above: Performed By: #### H EMDF, RENL3, TPUR, CRTUR, CUA2 #### [facility] [address] [place] [address] Potassium [Moles/Vol] 3.5 mmol/L Normal 3.5-5.1 [facility] Comment on above: Performed By: #### H EMDF, RENL3, TPUR, CRTUR, CUA2 #### [facility] [address] [place] [address] Sodium [Moles/Vol] 134 mmol/L Low 135-145 [facility] Comment on above: Performed By: #### H EMDF, RENL3, TPUR, CRTUR, CUA2 #### [facility] [address] [place] [address] Renal Function PanelOrdered By: Mikey Bauman on 01-14-2021 Albumin [Mass/Vol] 3.8 g/dL 3.5 - 5.0 g/dL [facility] Work Phone: Anion gap [Moles/Vol] 8 mmol/L 3 - 13 mmol/L [facility] Work Phone: Calcium [Mass/Vol] 9.6 mg/dL 8.4 - 10. 4 mg/dL [facility] Work Phone: Chloride [Moles/Vol] 95 mmol/L Low 98 - 10 7 mmol/L [facility] Work Phone: [phone] CO2 [Moles/Vol] 30 mmol/L 22 - 30 mmol/L [facility] Work Phone: [phone] Creatinine [Mass/Vol] 1.18 mg/dL 0.52 - 1.25 mg/dL [facility] Work Phone: [phone] IF NonAfrican [place]i 68.0 mL/min >60 [facility] Work Phone: [phone] Comment on above: KDIGO guidelines pro vide the following GFR categories: Stage GFR(ml/min/1.73 m2) Terms G1 >=90 Normal or high G2 60-89 Mildly decreased* G3a 45-59 Mildly to moderately decreased G3b 30-44 Moderately to severely decreased G4 15-29 Severely decreased G5 <15 Kidney failure *Relative to young adult level. In the absence of evidence of kidney damage, neither GFR category G1 nor G2 fulfill the criteria for CKD. The CKD-EPI equation is validated in individuals 18 years of age and older. Currently the best equation for estimating glomerular filtration rate (GFR) from serum creatinine in children is the Bedside Oleary equation. It is less accurate in patients with extremes of muscle mass, restriction of dietary protein, ingestion of creatine, extra-renal metabolism of creatinine, or treatment with medications that affect renal tubular creatinine secretion. GFR/1.73 sq M.predicted ramona g blacks MDRD (S/P/Bld) [Vol rate/Area] 78.8 mL/min/{1.73_m2} >60 [facility] Work Phone: [phone] Glucose [Mass/Vol] 235 mg/dL High 70 - 100 mg/dL [facility] Work Phone: [phone] Interpretation and review of laboratory results Abnormal [facility] Work Phone: [phone] Phosphate [Mass/Vol] 3.2 mg/dL 2.5 - 4 .5 mg/dL [facility] Work Phone: [phone] Potassium [Moles/Vol] 3.5 mmol/L 3.5 - 5.1 mmol/L [facility] Work Phone: [phone] Sodium [Moles/Vol] 134 mmol/L Low 135 - 145 mmol/L [facility] Work Phone: Urea nitrogen (BldV) [Mass/Vol] 20 mg/dL High 7 - 17 mg/dL [facility] Work Phone: [phone] Test Performed by [facility], [address] , [place], [place] [id number] [place] [address] Work Phone: [phone] [facility] Work Phone: Basic Metabolic Panelon 09-2 Calcium [Mass/Vol] 9.4 mg/dL Normal 8.4-10.4 [facility] Comment on above: Performed By: #### H EMDF, RENL3, TPUR, CRTUR, CUA2 #### [facility] [address] [place] [address] Anion gap [Moles/Vol] 10 mmol/L Normal 3-13 [facility] Comment on above: Performed By: #### H EMDF, RENL3, TPUR, CRTUR, CUA2 #### [facility] [address] [place] [address] CO2 [Moles/Vol] 30 mmol/L Normal 22-30 [facility] Comment on above: Performed By: #### H EMDF, RENL3, TPUR, CRTUR, CUA2 #### [facility] [address] [place] [address] Glucose [Mass/Vol] 211 mg/dL High 70-100 [facility] Comment on above: Performed By: #### H EMDF, RENL3, TPUR, CRTUR, CUA2 #### [facility] [address] [place] [address] Urea nitrogen [Mass/Vol] 16 mg/dL Normal 7-17 [facility] Comment on above: Performed By: #### H EMDF, RENL3, TPUR, CRTUR, CUA2 #### [facility] [address] [place] [address] Creatinine [Mass/Vol] 1.31 mg/dL High 0.52-1.25 [facility] Comment on above: Performed By: #### H EMDF, RENL3, TPUR, CRTUR, CUA2 #### [facility] [address] [place] [address] GFR/1.73 sq M.predicted ramona g blacks MDRD (S/P/Bld) [Vol rate/Area] 69.4 mL/min/{1.73_m2} Normal >60 [facility] Comment on above: Performed By: #### H EMDF, RENL3, TPUR, CRTUR, CUA2 #### [facility] [address] [place] [address] GFR/1.73 sq M.predicted ramona g non-blacks MDRD (S/P/Bld) [Vol rate/Area] 59.9 mL/min/{1.73_m2} Abnormal >60 [facility] Comment on above: Result Comment: KDIG O guidelines provide the following GFR categories: Stage GFR(ml/min/1.73 m2) Terms G1 >=90 Normal or high G2 60-89 Mildly decreased* G3a 45-59 Mildly to moderately decreased G3b 30-44 Moderately to severely decreased G4 15-29 Severely decreased G5 <15 Kidney failure *Relative to young adult level. In the absence of evidence of kidney damage, neither GFR category G1 nor G2 fulfill the criteria for CKD. The CKD-EPI equation is validated in individuals 18 years of age and older. Currently the best equation for estimating glomerular filtration rate (GFR) from serum creatinine in children is the Bedside Oleary equation. It is less accurate in patients with extremes of muscle mass, restriction of dietary protein, ingestion of creatine, extra-renal metabolism of creatinine, or treatment with medications that affect renal tubular creatinine secretion. Performed By: #### H EMDF, RENL3, TPUR, CRTUR, CUA2 #### [facility] [address] [place] [address] Chloride [Moles/Vol] 96 mmol/L Low 98-107 [facility] Comment on above: Performed By: #### H EMDF, RENL3, TPUR, CRTUR, CUA2 #### [facility] [address] [place] [address] Potassium [Moles/Vol] 3.2 mmol/L Low 3.5-5.1 [facility] Comment on above: Performed By: #### H EMDF, RENL3, TPUR, CRTUR, CUA2 #### [facility] [address] [place] [address] Sodium [Moles/Vol] 136 mmol/L Normal 135-145 [facility] Comment on above: Performed By: #### H EMDF, RENL3, TPUR, CRTUR, CUA2 #### [facility] [address] [place] [address] Basic Metabolic PanelOrdered By: Bubba Smith on 01-07-2021 Anion gap [Moles/Vol] 10 mmol/L 3 - 13 mmol/L [facility] Work Phone: Calcium [Mass/Vol] 9.4 mg/dL 8.4 - 10. 4 mg/dL [facility] Work Phone: Chloride [Moles/Vol] 96 mmol/L Low 98 - 10 7 mmol/L [facility] Work Phone: CO2 [Moles/Vol] 30 mmol/L 22 - 30 mmol/L [facility] Work Phone: Creatinine [Mass/Vol] 1.31 mg/dL High 0.52 - 1.25 mg/dL [facility] Work Phone: EGFR IF NonAfrican [place] 59.9 mL/min Abnormal >60 [facility] Work Phone: Comment on above: KDIGO guidelines pro vide the following GFR categories: Stage GFR(ml/min/1.73 m2) Terms G1 >=90 Normal or high G2 60-89 Mildly decreased* G3a 45-59 Mildly to moderately decreased G3b 30-44 Moderately to severely decreased G4 15-29 Severely decreased G5 <15 Kidney failure *Relative to young adult level. In the absence of evidence of kidney damage, neither GFR category G1 nor G2 fulfill the criteria for CKD. The CKD-EPI equation is validated in individuals 18 years of age and older. Currently the best equation for estimating glomerular filtration rate (GFR) from serum creatinine in children is the Bedside Oleary equation. It is less accurate in patients with extremes of muscle mass, restriction of dietary protein, ingestion of creatine, extra-renal metabolism of creatinine, or treatment with medications that affect renal tubular creatinine secretion. GFR/1.73 sq M.predicted ramona g blacks MDRD (S/P/Bld) [Vol rate/Area] 69.4 mL/min/{1.73_m2} >60 [facility] Work Phone: [phone] Glucose [Mass/Vol] 211 mg/dL High 70 - 100 mg/dL [facility] Work Phone: [phone] Interpretation and review of laboratory results Abnormal [facility] Work Phone: [phone] Potassium [Moles/Vol] 3.2 mmol/L Low 3.5 - 5.1 mmol/L [facility] Work Phone: [phone] Sodium [Moles/Vol] 136 mmol/L 135 - 145 mmol/L [facility] Work Phone: [phone] Urea nitrogen (BldV) [Mass/Vol] 16 mg/dL 7 - 17 mg/dL [facility] Work Phone: [phone] Test Performed by [facility], [address] [place], [place] [address] Work Phone: [phone] [facility] Work Phone: [phone] Brain Natriuretic PeptideOrd ered By: Bubba Smith on 01-07-2021 Natriuretic peptide B (Bld) [Mass/Vol] 117 pg/mL 0 - 125 pg/mL [facility] Work Phone: [phone] CR Chest Portableon 01-08-20 21 CR Chest Portable Patient Name: SOPHIE HICKS Diagnostic Radiology ACCESSION EXAM DATE/TIME PROCEDURE ORDERING PROVIDER [id number] 01/07/2021 04:12 EDT CR Chest Portable 5803 BUBBA SAEED CPT code 17592 Reason For Exam (CR Chest Portable) SOB Report Portable semiupright AP view of the chest, 01/07/2021. Reason for examination: Soreness of breath. COMPARISON: October 30, 2020. FINDINGS: Cardiac size is within normal limits. Pulmonary vasculature is normal. The lungs are free of infiltrate. No pleural effusion or pneumothorax is identified. There are likely degenerative changes in the thoracic spine. There are postoperative changes in the shoulders bilaterally. IMPRESSION: No acute cardiopulmonary disease detected. Report Dictated on Final Dictating Physician: MD MARTINEZ JOE M Signed Date and Time: 01/07/2021 4:46 am Signed by: MD MARTINEZ JOE M Transcribed Date and Time: 01/07/2021 4:47 Normal [facility] ED Provider Noteon ED Provider Note [facility] ED eMERGENCY dEPARTMENT eNCOUnter Pt Name: Sophie Hicks Birthdate 1965 Date of evaluation: 01/06/2021 Provider: Bubba Smith MD CHIEF COMPLAINT No chief complaint on file. HISTORY OF PRESENT ILLNESS (Location/Symptom, Timing/Onset, Context/Setting, Quality, Duration, Modifying Factors, Severity) Note limiting factors. HPI Sophie Hicks is a 55 y.o. male who presents to the emergency department bilateral leg swelling. I saw this patient in the waiting room as we are boarding in the emergency department. Patient notes that he has been having bilateral leg pain and swelling for last few days. Denies chest pain shortness of breath new medications or dysuria. No abdominal pain. Also is worried about a patch of hair that is lost on the back of his head and some discharge from his right eye. He denies any vision changes or trauma to the eye. Nursing Notes were reviewed. REVIEW OF SYSTEMS (2+ for level 4; 10+ for level 5) Review of Systems Constitutional: Negative for fatigue and fever. HENT: Negative for congestion and ear pain. Eyes: Negative for pain and discharge. Respiratory: Negative for cough and shortness of breath. Cardiovascular: Negative for chest pain and palpitations. Gastrointestinal: Negative for abdominal pain, diarrhea and vomiting. Genitourinary: Negative for dysuria and frequency. Skin: Negative for color change and rash. Neurological: Negative for dizziness and headaches. Psychiatric/Behavio ral: Negative for agitation and suicidal ideas. PAST MEDICAL HISTORY Past Medical History: Diagnosis Date ? Abdominal pain ? Atrial fibrillation (HCC) ? Back pain ? Benign essential HTN 01/29/2015 ? Blood circulation, collateral ? CAD (coronary artery disease) mild - dx on cath - neg stress ? Cerebral artery occlusion with cerebral infarction (HCC) ? CHF (congestive heart failure) (HCC) ? Chronic kidney disease ? COPD (chronic obstructive pulmonary disease) (HCC) ? COVID-19 05/03 ? COVID-19 vaccine series completed 09/25/2020 Moderna ? CS (cervical spondylosis) 12/25/2004 CERVICAL SPINE DJD ? Difficulty sleeping ? Dizziness ? GERD (gastroesophageal reflux disease) ? History of colonic polyps 06/21/2013 repeat 2019 ? Hyperlipidemia ? Insomnia 08/15/2014 ? Joint pain, hip ? Joint pain, knee ? Memory difficulties ? Muscle weakness ? Peripheral polyneuropathy 09/30/2020 ? Shortness of breath at rest ? Snoring ? SOBOE (shortness of breath on exertion) SURGICAL HISTORY Past Surgical History: Procedure Laterality Date ? APPENDECTOMY ? COLONOSCOPY 2020 ? CYSTOSCOPY 10/26/2020 ? CYSTOSCOPY 11/19/2020 ? ENDOSCOPY, COLON, DIAGNOSTIC ? NECK SURGERY Posterior cervical fusion ? ROTATOR CUFF REPAIR Bilateral CURRENT MEDICATIONS Previous Medications ACETAMINOPHEN (TYLENOL) 500 MG TABLET Take 2 tablets by mouth 4 times daily as needed for Pain ALBUTEROL SULFATE HFA (VENTOLIN HFA) 108 (90 BASE) MCG/ACT INHALER Inhale 2 puffs into the lungs 4 times daily as needed for Wheezing Use every Four hours for the next 2 days then May switch to every four hours as needed. ASPIRIN 81 MG CHEWABLE TABLET Take 81 mg by mouth daily ATORVASTATIN (LIPITOR) 80 MG TABLET Take 1 tablet by mouth nightly BACLOFEN (LIORESAL) 10 MG TABLET Take 10 mg by mouth 3 times daily prn CYCLOBENZAPRINE (FLEXERIL) 10 MG TABLET Take 10 mg by mouth 3 times daily as needed for Muscle spasms CYCLOPHOSPHAMIDE (CYTOXAN) 50 MG CAPS CAPSULE Take 3 capsules by mouth 2 times daily DICYCLOMINE (BENTYL) 10 MG CAPSULE Take 1 capsule by mouth 3 times daily (before meals) FLUTICASONE-SALMETE ROL (ADVAIR DISKUS) 250-50 MCG/DOSE AEPB Inhale 1 puff into the lungs every 12 hours METOLAZONE (ZAROXOLYN) 2.5 MG TABLET Take 1 tablet by mouth daily Take 30min before torsemide OXYBUTYNIN (DITROPAN XL) 10 MG EXTENDED RELEASE TABLET Take 1 tablet by mouth daily PANTOPRAZOLE (PROTONIX) 40 MG TABLET Take 1 tablet by mouth 2 times daily (with meals) POTASSIUM CHLORIDE (KLOR-CON) 20 MEQ PACKET Take 20 mEq by mouth 2 times daily PREDNISONE (DELTASONE) 20 MG TABLET Take 20 mg by mouth daily 4 tabs daily total 80mg PROMETHAZINE (PHENERGAN) 12.5 MG TABLET Take 12.5 mg by mouth every 8 hours as needed for Nausea SENNOSIDES-DOCUSATE SODIUM (SENOKOT-S) 8.6-50 MG TABLET Take 1 tablet by mouth daily as needed for Constipation SULFAMETHOXAZOLE-TR IMETHOPRIM (BACTRIM DS;SEPTRA DS) 800-160 MG PER TABLET Take 1 tablet by mouth three times a week TAMSULOSIN (FLOMAX) 0.4 MG CAPSULE Take 0.4 mg by mouth daily TORSEMIDE (DEMADEX) 20 MG TABLET Take 1 tablet by mouth 2 times daily VITAMIN B-12 (CYANOCOBALAMIN) 500 MCG TABLET Take 500 mcg by mouth daily VITAMIN D, CHOLECALCIFEROL, PO Take 6,000 Int'l Units by mouth daily ZINC GLUCONATE 50 MG TABLET Take 50 mg by mouth daily ALLERGIES Iv contrast [iodides] and Nsaids FAMILY HISTORY Family His (more content not included)... Normal [facility] Hemogramon 01-07-2021 Erythrocyte distribution width (RBC) [Ratio] 14.6 % High 11.5-14.5 [facility] Comment on above: Performed By: #### H EMDF, RENL3, TPUR, CRTUR, CUA2 #### [facility] [address] [facility] [place] [address] Hematocrit (Bld) [Volume fraction] 40.4 % Normal 40.0-52.0 [facility] Comment on above: Performed By: #### H EMDF, RENL3, TPUR, CRTUR, CUA2 #### [facility] [address] [place] [address] Hemoglobin (Bld) [Mass/Vol] 13.7 g/dL Normal 13.0-18. 0 [facility] Comment on above: Performed By: #### H EMDF, RENL3, TPUR, CRTUR, CUA2 #### [facility] [address] [place] [address] MCH (RBC) [Entitic mass] 29.0 pg Normal 26.0-34.0 [facility] Comment on above: Performed By: #### H EMDF, RENL3, TPUR, CRTUR, CUA2 #### [facility] [address] [place] [address] MCHC 34.0 % Normal 32.0-36.0 [facility] Comment on above: Performed By: #### H EMDF, RENL3, TPUR, CRTUR, CUA2 #### [facility] [address] [place] [address] MCV (RBC) [Entitic vol] 85.3 fL Normal 80.0-98.0 [facility] Comment on above: Performed By: #### H EMDF, RENL3, TPUR, CRTUR, CUA2 #### [facility] [address] [place] [address] Platelet mean volume (Bld) [Entitic vol] 6.5 fL Low 7.4-10.4 [facility] Comment on above: Performed By: #### H EMDF, RENL3, TPUR, CRTUR, CUA2 #### [facility] [address] [place] [address] Platelets (Bld) [#/Vol] 278 10*3/uL Normal 140-440 [facility] Comment on above: Performed By: #### H EMDF, RENL3, TPUR, CRTUR, CUA2 #### [facility] [address] [place] [address] RBC (Bld) [#/Vol] 4.74 10*6/uL Normal 4.40-5.90 [facility] Comment on above: Performed By: #### H EMDF, RENL3, TPUR, CRTUR, CUA2 #### [facility] [address] [place] [address] WBC (Bld) [#/Vol] 8.7 10*3/uL Normal 3.6-10.7 [facility] Comment on above: Performed By: #### H EMDF, RENL3, TPUR, CRTUR, CUA2 #### [facility] [address] [place] [address] Hemogram (CBC)Ordered By: Marjorie Smith on 01-07-2021 Hematocrit (Bld) [Volume fraction] 40.4 % 40.0 - 52.0 % [facility] Work Phone: Hemoglobin.gastrointestinal spec 1 Ql (Stl) 13.7 g/dL 13.0 - 18.0 g/dL [facility] Work Phone: Interpretation and review of laboratory results Abnormal [facility] Work Phone: MCH (RBC) [Entitic mass] 29.0 pg 26. 0 - 34.0 pg [facility] Work Phone: MCHC (RBC) [Mass/Vol] 34.0 % 32.0 - 36.0 % [facility] Work Phone: MCV (RBC) [Entitic vol] 85.3 fL 80.0 - 98.0 fL [facility] Work Phone: Platelet distribution width (Bld) [Ratio] 14.6 % High 11.5 - 14.5 % [facility] Work Phone: Platelet mean volume (Bld) [Entitic vol] 6.5 fL Low 7.4 - 10.4 fL [facility] Work Phone: Platelets (Bld) [#/Vol] 278 10*3/uL 140 - 440 10*3/uL [facility] Work Phone: RBC (Bld) [#/Vol] 4.74 10*6/uL 4.40 - 5.90 10*6/uL [facility] Work Phone: WBC (Bld) [#/Vol] 8.7 10*3/uL 3.6 - 10.7 10*3/uL [facility] Work Phone: Test Performed by [facility], [address] [facility] [facility] [address] [place], [place] [id number] [place], [place] [address] Work Phone: [facility] Work Phone: NT pro BNPon 01-07-2021 Natriuretic peptide B (Bld) [Mass/Vol] 117 pg/mL Normal 0-125 [facility] Comment on above: Performed By: #### H EMDF, RENL3, TPUR, CRTUR, CUA2 #### [facility] [address] [place] [address] No Panel InformationOrdered By: Bubba Smith on 01-07-2021 Test Performed by [facility], [address], [place], [place] [address] [facility] Work Phone: [facility] Work Phone: Troponin Ion 01-07-2021 Troponin I.cardiac [Mass/Vol] ng/mL Normal 0.000-0.03 4 [facility] Comment on above: Result Comment: . Performed By: #### H EMDF, RENL3, TPUR, CRTUR, CUA2 #### [facility] [address] [place] [address] Troponin [id number] By: Tien Smith on 01-07-2021 Troponin I.cardiac [Mass/Vol] ng/mL 0.000 - 0.034 ng/mL [facility] Work Phone: Comment on above: . XR CHEST PORTABLEOrdered By: Bubba Smith on 01-07-2021 Patient Name: SOPHIE HICKS Diagnostic Radiology ACCESSION EXAM DATE/TIME PROCEDURE ORDERING PROVIDER [id number] 01/07/2021 04:12 EDT CR Chest Portable 5803 BUBBA SAEED CPT code 65564 Reason For Exam (CR Chest Portable) SOB Report Portable semiupright AP view of the chest, 01/07/2021. Reason for examination: Soreness of breath. COMPARISON: October 30, 2020. FINDINGS: Cardiac size is within normal limits. Pulmonary vasculature is normal. The lungs are free of infiltrate. No pleural effusion or pneumothorax is identified. There are likely degenerative changes in the thoracic spine. There are postoperative changes in the shoulders bilaterally. IMPRESSION: No acute cardiopulmonary disease detected. Report Dictated on --- Final --- Dictating Physician: MD MARTINEZ JOE M Signed Date and Time: 01/07/2021 4:46 am Signed by: MD MARTINEZ JOE M Transcribed Date and Time: 01/07/2021 4:47 [facility] Work Phone: [place], [facility] 01/07/2021 4:47 AM EDT Patient Name: SOPHIE HICKS Diagnostic Radiology ACCESSION EXAM DATE/TIME PROCEDURE ORDERING PROVIDER [id number] 01/07/2021 04:12 EDT CR Chest Portable 5803 -BUBBA SMITH CPT code 05536 Reason For Exam (CR Chest Portable) SOB Report Portable semiupright AP view of the chest, 01/07/2021. Reason for examination: Soreness of breath. COMPARISON: October 30, 2020. FINDINGS: Cardiac size is within normal limits. Pulmonary vasculature is normal. The lungs are free of infiltrate. No pleural effusion or pneumothorax is identified. There are likely degenerative changes in the thoracic spine. There are postoperative changes in the shoulders bilaterally. IMPRESSION: No acute cardiopulmonary disease detected. Report Dictated on --- Final --- Dictating Physician: MD MARTINEZ JOE M Signed Date and Time: 01/07/2021 4:46 am Signed by: MD MARTINEZ JOE M Transcribed Date and Time: 01/07/2021 4:47 [facility] Work Phone: [facility] Work Phone: CR Spine Lumbosacral 4+ View son 12-04-2020 CR Spine Lumbosacral 4+ Views Patient Na me: SOPHIE HICKS Diagnostic Radiology ACCESSION EXAM DATE/TIME PROCEDURE ORDERING PROVIDER [id number] 12/04/2020 09:32 EDT CR Spine Lumbosacral 4+ YOU JENKINS, IRIS Views CPT code 95792 Reason For Exam (CR Spine Lumbosacral 4+ Views) Spondylolisthesis of lumbar region Report LUMBAR SPINE, AP and LATERAL, WITH FLEXION AND EXTENSION: INDICATION: Low back pain COMPARISON: No previous studies are available for comparison. Frontal, lateral and flexion/extension lateral views of the lumbosacral spine were obtained. There are 5 typical lumbar vertebrae. The bone mineral density is normal. The vertebral body heights are within normal limits. The disk spaces are well preserved. No instability is seen with flexion or extension. There is mild levoscoliosis of the lumbar spine The facet joints are within normal limits. No fracture is noted. The paravertebral soft tissues are unremarkable. IMPRESSION: Negative examination of the lumbar spine. Mild levoscoliosis. Report Dictated on Final Dictating Physician: DO DE LA GARZA ALFRED Signed Date and Time: 12/04/2020 4:01 pm Signed by: DO DE LA GARZA ALFRED Transcribed Date and Time: 12/04/2020 4:02 Normal [facility] XR LUMBAR SPINE (MIN 4 VIEWS )Ordered By: Lelo Jenkins on 12-04-2020 Patient Name: SOPHIE HICKS Diagnostic Radiology ACCESSION EXAM DATE/TIME PROCEDURE ORDERING PROVIDER [id number] 12/04/2020 09:32 EDT CR Spine Lumbosacral 4+ YOU JENKINS IRIS Views CPT code 37964 Reason For Exam (CR Spine Lumbosacral 4+ Views) Spondylolisthesis of lumbar region Report LUMBAR SPINE, AP & LATERAL, WITH FLEXION AND EXTENSION: INDICATION: Low back pain COMPARISON: No previous studies are available for comparison. Frontal, lateral and flexion/extension lateral views of the lumbosacral spine were obtained. There are 5 typical lumbar vertebrae. The bone mineral density is normal. The vertebral body heights are within normal limits. The disk spaces are well preserved. No instability is seen with flexion or extension. There is mild levoscoliosis of the lumbar spine The facet joints are within normal limits. No fracture is noted. The paravertebral soft tissues are unremarkable. IMPRESSION: Negative examination of the lumbar spine. Mild levoscoliosis. Report Dictated on --- Final --- Dictating Physician: DO DE LA GARZA ALFRED Signed Date and Time: 12/04/2020 4:01 pm Signed by: DO DE LA GARZA ALFRED Transcribed Date and Time: 12/04/2020 4:02 [facility] Work Phone: [facility] Results From [facility] - 12/04/2020 4:02 PM EDT Patient Name: SOPHIE HICKS Diagnostic Radiology ACCESSION EXAM DATE/TIME PROCEDURE ORDERING PROVIDER [id number] 12/04/2020 09:32 EDT CR Spine Lumbosacral 4+ YOU JENKINS, IRIS Views CPT code 74099 Reason For Exam (CR Spine Lumbosacral 4+ Views) Spondylolisthesis of lumbar region Report LUMBAR SPINE, AP & LATERAL, WITH FLEXION AND EXTENSION: INDICATION: Low back pain COMPARISON: No previous studies are available for comparison. Frontal, lateral and flexion/extension lateral views of the lumbosacral spine were obtained. There are 5 typical lumbar vertebrae. The bone mineral density is normal. The vertebral body heights are within normal limits. The disk spaces are well preserved. No instability is seen with flexion or extension. There is mild levoscoliosis of the lumbar spine The facet joints are within normal limits. No fracture is noted. The paravertebral soft tissues are unremarkable. IMPRESSION: Negative examination of the lumbar spine. Mild levoscoliosis. Report Dictated on --- Final --- Dictating Physician: DO DE LA GARZA ALFRED Signed Date and Time: 12/04/2020 4:01 pm Signed by: DO DE LA GARZA ALFRED Transcribed Date and Time: 12/04/2020 4:02 [facility] Work Phone: [facility] Work Phone: CT Abdomen/Pelvis w/o Contra ston 11-26-2020 CT Abdomen/Pelvis w/o Contrast [facility]: 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 scan pelvis: 11/26/2020 . Clinical Information: Pain . CT scan abdomen: CT scans of the abdomen were performed at 3 mm slice thickness with no oral or intravenous contrast as requested. Comparison was made to the prior study 11/01/2020 Limited slices through the lower lung pires reveal no pleural or parenchymal abnormalities in the lung bases. Without the administration of oral or intravenous contrast, evaluation of solid and hollow organs is limited. The liver is diffusely low in density consistent with fatty infiltration. The liver, spleen and pancreas are grossly normal. No free peritoneal fluid or air is seen. No retroperitoneal lymphadenopathy is identified. The kidneys are within normal limits without evidence of hydronephrosis. No abnormal calcifications are identified in the kidneys or along the course of the ureters. CT scan pelvis: CT scans the pelvis were performed at 3 mm slice thickness with no oral or intravenous contrast as requested. No pelvic mass lesions, fluid collections or lymphadenopathy is seen. No abnormal calcifications are identified to suggest distal ureteral calculi. Impression: Study limited due to lack of contrast. Fatty infiltration of the liver. No abnormalities otherwise identified. Computed Tomography Report Report Dictated on Final Dictating Physician: MD ARTEAGA RISA Signed Date and Time: 11/26/2020 4:15 pm Signed by: MD ARTEAGA RISA Transcribed Date and Time: 11/26/2020 4:16 Normal [facility] Comp Metabolic Panelon 11-26 Calcium [Mass/Vol] 8.8 mg/dL Normal 8.4-10.4 [facility] Comment on above: Performed By: #### L IPA4, HEMDF, CMP3 #### [facility] [address] [place] [address] ALP [Catalytic activity/Vol] 59 U/L Normal 38-126 [facility] Comment on above: Performed By: #### L IPA4, HEMDF, CMP3 #### [facility] [address] [place] [address] ALT [Catalytic activity/Vol] 30 U/L Normal 0-49 [facility] Comment on above: Result Comment: The ALT test is performed by an updated assay method. Please note that the reference intervals have been changed and are now sex specific. Performed By: #### L IPA4, HEMDF, CMP3 #### [facility] [address] [place] [address] Anion gap [Moles/Vol] 5 mmol/L Normal 3-13 [facility] Comment on above: Performed By: #### L IPA4, HEMDF, CMP3 #### [facility] [address] [place] [address] AST [Catalytic activity/Vol] 54 U/L High 15-46 [facility] Comment on above: Performed By: #### L IPA4, HEMDF, CMP3 #### [facility] [address] [place] [address] Bilirubin [Mass/Vol] 0.7 mg/dL Normal 0.2-1.3 [facility] Comment on above: Performed By: #### L IPA4, HEMDF, CMP3 #### [facility] [address] [place] [address] CO2 [Moles/Vol] 26 mmol/L Normal 22-30 [facility] Comment on above: Performed By: #### L IPA4, HEMDF, CMP3 #### [facility] [address] [place] [address] Glucose [Mass/Vol] 120 mg/dL High 70-100 [facility] Comment on above: Performed By: #### L IPA4, HEMDF, CMP3 #### [facility] [address] [place] [address] Protein [Mass/Vol] 6.7 g/dL Normal 6.3-8.2 [facility] Comment on above: Performed By: #### L IPA4, HEMDF, CMP3 #### [facility] [address] [place] [address] Urea nitrogen [Mass/Vol] 15 mg/dL Normal 7-20 [facility] Comment on above: Performed By: #### L IPA4, HEMDF, CMP3 #### [facility] [address] [place] [address] Creatinine [Mass/Vol] 0.98 mg/dL Normal 0.52-1.25 [facility] Comment on above: Performed By: #### L IPA4, HEMDF, CMP3 #### [facility] [address] [place] [address] GFR/1.73 sq M.predicted ramona g blacks MDRD (S/P/Bld) [Vol rate/Area] mL/min/{1.73_m2} Normal >60 [facility] Comment on above: Performed By: #### L IPA4, HEMDF, CMP3 #### [facility] [address] [place] [address] GFR/1.73 sq M.predicted ramona g non-blacks MDRD (S/P/Bld) [Vol rate/Area] 85.2 mL/min/{1.73_m2} Normal >60 [facility] Comment on above: Result Comment: KDIG O guidelines provide the following GFR categories: Stage GFR(ml/min/1.73 m2) Terms G1 >=90 Normal or high G2 60-89 Mildly decreased* G3a 45-59 Mildly to moderately decreased G3b 30-44 Moderately to severely decreased G4 15-29 Severely decreased G5 <15 Kidney failure *Relative to young adult level. In the absence of evidence of kidney damage, neither GFR category G1 nor G2 fulfill the criteria for CKD. The CKD-EPI equation is validated in individuals 18 years of age and older. Currently the best equation for estimating glomerular filtration rate (GFR) from serum creatinine in children is the Bedside Oleary equation. It is less accurate in patients with extremes of muscle mass, restriction of dietary protein, ingestion of creatine, extra-renal metabolism of creatinine, or treatment with medications that affect renal tubular creatinine secretion. Performed By: #### L IPA4, HEMDF, CMP3 #### [facility] [address] [place] [address] Potassium [Moles/Vol] 3.9 mmol/L Normal 3.5-5.1 [facility] Comment on above: Performed By: #### L IPA4, HEMDF, CMP3 #### [facility] [address] [place] [address] Albumin [Mass/Vol] 3.9 g/dL Normal 3.5-5.0 [facility] Comment on above: Performed By: #### L IPA4, HEMDF, CMP3 #### [facility] [address] [place] [address] Chloride [Moles/Vol] 104 mmol/L Normal 98-107 [facility] Comment on above: Performed By: #### L IPA4, HEMDF, CMP3 #### [facility] [address] [place] [address] Sodium [Moles/Vol] 136 mmol/L Normal 135-145 [facility] Comment on above: Performed By: #### L IPA4, HEMDF, CMP3 #### [facility] [address] [place] [address] Complete Urinalysison 2020 Amorphous Crystal Few Abnormal Negative [facility] Comment on above: Result Comment: . Performed By: #### C UA2 ####[place] [address] [place] [address] Appearance (U) Clear Normal Clear [facility] Comment on above: Result Comment: . Performed By: #### C UA2 ####[address] [place] [address] Bacteria Few Abnormal Negative [facility] Comment on above: Result Comment: . Performed By: #### C UA2 ####[address] [place] [address] Bilirubin,Urine Negative Normal Negative [facility] Comment on above: Result Comment: . Performed By: #### C UA2 ####[facility] [employer] [address] [place] [address] Cast, Granular 0 - 2 Abnormal Negative [facility] Comment on above: Result Comment: . Performed By: #### C UA2 ####[address] [place] [address] Cast, Hyaline 0 - 2 Abnormal Negative [facility] Comment on above: Result Comment: . Performed By: #### C UA2 ####[address] [place] [address] Color (U) Light-Yellow Normal Lt. Yellow [facility] Comment on above: Result Comment: . Performed By: #### C UA2 ####[address] [place] [address] Glucose Ql (U) Normal Normal Normal (<70) [facility] Comment on above: Result Comment: . Performed By: #### C UA2 ####[address] [place] [address] Ketone,Urine Negative Normal Negative [facility] Comment on above: Result Comment: . Performed By: #### C UA2 ####[place] [address] [place] [address] Leukocytes,Urine Negative Normal Negative [facility] Comment on above: Result Comment: . Performed By: #### C UA2 ####[place] [address] [place] [address] Mucous Threads Moderate Abnormal Negative [facility] Comment on above: Result Comment: . Performed By: #### C UA2 ####[address] [place] [address] Nitrites,Urine Negative Normal Negative [facility] Comment on above: Result Comment: . Performed By: #### C UA2 ####[address] [place] [address] Non-Squamous Epithelial < 1 Abnormal Negative S [facility] Comment on above: Result Comment: . Performed By: #### C UA2 ####[address] [place] [address] Occult Blood,Urine 0.06 mg/dL Abnormal Negative [facility] Comment on above: Result Comment: . Performed By: #### C UA2 ####[address] [place] [address] pH,Urine 6.0 Normal 5.0-8.0 [facility] Comment on above: Result Comment: . Performed By: #### C UA2 ####[address] [place] [address] Protein (U) [Mass/Vol] 200 mg/dL Abnormal Negative [facility] Comment on above: Result Comment: . Performed By: #### C UA2 ####[address] [place] [address] RBC, Urine 0 - 2 Normal 0-2 [facility] Comment on above: Result Comment: . Performed By: #### C UA2 ####[address] [place] [address] Specific Kirwin,Urine 1.017 Normal 1.005 - 1.030 [facility] Comment on above: Result Comment: . Performed By: #### C UA2 ####[address] [place] [address] Squamous Epithelial 3 - 5 Normal 3-5 [facility] Comment on above: Result Comment: . Performed By: #### C UA2 ####[facility] [place] [address] Urobilinogen,Urine Normal Normal Normal (0-1) [facility] Comment on above: Result Comment: . Performed By: #### C UA2 ####[facility] [place] [address] WBC, Urine 3 - 5 Normal 0-5 [facility] Comment on above: Result Comment: . Performed By: #### C UA2 ####[facility] [place] [address] ED Provider Noteon ED Provider Note [facility] ED eMERGENCY dEPARTMENT eNCOUnter Pt Name: Sophie Hicks Birthdate 1965 Date of evaluation: 11/26/2020 Provider: Marisel Fink APRN - NASRIN This patient was seen in conjunction with Dr. Kenny CHIEF COMPLAINT Chief Complaint Patient presents with ? Abdominal Pain R side HISTORY OF PRESENT ILLNESS (Location/Symptom, Timing/Onset,Contex t/Setting, Quality, Duration, Modifying Factors, Severity) Note limiting factors. HPI Sophie Hicks is a 55 y.o. male who presents to the emergency department with right flank pain and pain across his lower abdomen. Patient has a history of nephrotic syndrome, also had a history of urinary retention earlier this year had a catheter placed was irrigated, subsequently in October he had a bladder lift done by Dr. Whittaker he had cystoscopy done earlier this year. He states he saw urology 3 days ago in the office they did labs that showed protein in the urine but essentially his labs were unremarkable. Patient is in the emergency department about every month for similar issues related to this. Has a history of degenerative disc disease in his lower back. States he is moving his bowels normally but complains of lower abdominal pain and feels like his abdomen is bloated. Nursing Notes were reviewed. REVIEW OF SYSTEMS (2+ for4; 10+ for level 5) Review of Systems Constitutional: Negative for activity change, appetite change, chills and fever. HENT: Negative for congestion, ear discharge, ear pain, hearing loss, postnasal drip, rhinorrhea and sore throat. Eyes: Negative for discharge and redness. Respiratory: Negative for chest tightness, shortness of breath and wheezing. Cardiovascular: Negative for chest pain and palpitations. Gastrointestinal: Positive for abdominal pain. Negative for blood in stool, constipation, diarrhea, nausea and vomiting. Genitourinary: Positive for flank pain. Negative for discharge, dysuria and hematuria. Musculoskeletal: Negative for arthralgias and myalgias. Skin: Negative for color change. Neurological: Negative for dizziness, tremors, syncope, weakness, light-headedness and headaches. Hematological: Negative for adenopathy. Psychiatric/Behavio ral: Negative for confusion. All other systems reviewed and are negative. PAST MEDICAL HISTORY Past Medical History: Diagnosis Date ? Abdominal pain ? Atrial fibrillation (HCC) ? Back pain ? Benign essential HTN 01/29/2015 ? Blood circulation, collateral ? CAD (coronary artery disease) mild - dx on cath - neg stress ? Cerebral artery occlusion with cerebral infarction (HCC) ? CHF (congestive heart failure) (HCC) ? Chronic kidney disease ? COPD (chronic obstructive pulmonary disease) (HCC) ? COVID-19 05/03 ? COVID-19 vaccine series completed 09/25/2020 Moderna ? CS (cervical spondylosis) 12/25/2004 CERVICAL SPINE DJD ? Difficulty sleeping ? Dizziness ? GERD (gastroesophageal reflux disease) ? History of colonic polyps 06/21/2013 repeat 2019 ? Hyperlipidemia ? Insomnia 08/15/2014 ? Joint pain, hip ? Joint pain, knee ? Memory difficulties ? Muscle weakness ? Peripheral polyneuropathy 09/30/2020 ? Shortness of breath at rest ? Snoring ? SOBOE (shortness of breath on exertion) SURGICALHISTORY Past Surgical History: Procedure Laterality Date ? APPENDECTOMY ? COLONOSCOPY 2020 ? CYSTOSCOPY 10/26/2020 ? CYSTOSCOPY 11/19/2020 ? ENDOSCOPY, COLON, DIAGNOSTIC ? NECK SURGERY Posterior cervical fusion ? ROTATOR CUFF REPAIR Bilateral CURRENT MEDICATIONS Previous Medications ACETAMINOPHEN (TYLENOL) 500 MG TABLET Take 2 tablets by mouth 4 times daily as needed for Pain ALBUTEROL SULFATE HFA (VENTOLIN HFA) 108 (90 BASE) MCG/ACT INHALER Inhale 2 puffs into the lungs 4 times daily as needed for Wheezing Use every Four hours for the next 2 days then May switch to every four hours as needed. ASPIRIN 81 MG CHEWABLE TABLET Take 81 mg by mouth daily ATORVASTATIN (LIPITOR) 80 MG TABLET Take 1 tablet by mouth nightly BACLOFEN (LIORESAL) 10 MG TABLET Take 10 mg by mouth 3 times daily prn CYCLOBENZAPRINE (FLEXERIL) 10 MG TABLET Take 10 mg by mouth 3 times daily as needed for Muscle spasms CYCLOPHOSPHAMIDE (CYTOXAN) 50 MG CAPS CAPSULE Take 3 capsules by mouth 2 times daily DICYCLOMINE (BENTYL) 10 MG CAPSULE Take 1 capsule by mouth 3 times daily (before meals) METOLAZONE (ZAROXOLYN) 2.5 MG TABLET Take 1 tablet by mouth daily Take 30min before torsemide OXYBUTYNIN (DITROPAN XL) 10 MG EXTENDED RELEASE TABLET Take 1 tablet by mouth daily PANTOPRAZOLE (PROTONIX) 40 MG TABLET Take 1 tablet by mouth 2 times daily (with meals) POTASSIUM CHLORIDE (KLOR-CON) 20 MEQ PACKET Take 20 mEq by mouth 2 times daily PREDNISONE (DELTASONE) 20 MG TABLET Take 20 mg by mouth daily 4 tabs daily total 80mg PREGABALIN (LYRICA) 50 MG CAPSULE Take 50 mg by mouth 3 times daily. Not taking-side effects PROMETHAZINE (more content not included)... Normal [facility] ED Provider Note Patient, Sophie Hicks, is seen and examined in conjunction with advanced practice practitioner. I independently performed history, physical exam, admitted all diagnostic treatment and disposition decisions. I wore a surgical mask for the entirety of this encounter. In brief their history revealed 55-year-old male with complex medical history including recent urologic procedures, nephrotic syndrome presenting for abdominal pain, back pain, flank pain, lower extremity swelling. Patient explains that he recently had a urologic procedure. , Cystoscopy on November 19. He was having issues with urination and a large prostate that was causing urinary retention. Patient reports the following procedure he has been peeing more frequently but is urinating more often. He is also noticed that he has bilateral lower extremity swelling. He discussed this with his kidney doctor and they recommend they come to the emergency department for evaluation. Patient explains that he also has developed some pain in his right flank. He is not had pain like this before. No history of kidney stones. He also has pain in the suprapubic area. This is somewhat of a chronic pain that he has had multiple times. Patient is taking medication at home with no improvement in symptoms. To the recommendations of his doctor he presents for further evaluation. Denies any chest pain or shortness of breath. Their focused exam: GENERAL: Awake, alert, no apparent distress HEENT: Atraumatic, normocephalic. PERRL. EOMI. NECK: Trachea midline. Supple. CV: Regular rate and rhythm, no murmurs, rubs or gallops RESPIRATORY: Clear breath sounds bilaterally. No respiratory distress. No accessory muscle use. GI: Mild tenderness to palpation in the suprapubic area. Abdomen soft, nontender throughout. No rigidity, rebound or guarding. NEURO: Alert and oriented x 3. Follows commands. Normal motor and sensation throughout. No focal deficits. EXTREMITIES: No deformities noted. No palpable bony injury. SKIN: Minimal lower extremity edema, nonpitting. No posterior calf tenderness bilaterally. Warm, dry, no lesions noted PSYCH: Normal mood and affect ED course: 55-year-old male presenting for abdominal pain, lower extremity swelling. Vital signs reviewed and within normal limits. Exam reveals minimal swelling the patient's lower extremities bilaterally. His abdomen does reveal some mild suprapubic tenderness but is otherwise unremarkable. Given his risk factors and complaints we did order labs, CT scan and also duplex of his lower extremities. Labs reveal a grossly normal CBC. Metabolic panel grossly within normal limits with normal renal function. LFTs grossly within normal limits with exception of AST which is mildly elevated to 54. Urinalysis shows a few squamous epithelial cells as well as a few bacteria but no nitrites, or leukocyte esterase. Venous duplex of the lower extremities is negative bilaterally. Patient has allergy to IV contrast a CT scan had been performed without contrast but showed fatty infiltration of the liver with no other acute findings. On reevaluation, patient appears well. We do feel he would be safe for discharge to follow-up with his doctors. Patient states understanding agreement with plan and was discharged home. All diagnostic, treatment, and disposition decisions were made by myself in conjunction with the mid-level provider. For all further details of the patient's emergency department visit, please see the advance practice provider's documentation. Inder Kenny DO 11/27/20 0728 [facility] Hemogram w/ Autodiffon 11-26 Abs Baso Cnt 0.1 10*3/uL Normal 0.0-0.2 [facility] Comment on above: Performed By: #### L IPA4, HEMDF, CMP3 #### [facility] [address] [place] [address] Abs Neutrophile Cnt 5.4 10*3/uL Normal 1.8-7.0 [facility] Comment on above: Performed By: #### L IPA4, HEMDF, CMP3 #### [facility] [address] [place] [address] Basophils/100 WBC (Bld) 0.9 % Normal 0.0-2.0 [facility] Comment on above: Performed By: #### L IPA4, HEMDF, CMP3 #### [facility] [address] [place] [address] Eosinophils (Bld) [#/Vol] 0.4 10*3/uL Normal 0.0-0.5 [facility] Comment on above: Performed By: #### L IPA4, HEMDF, CMP3 #### [facility] [address] [place] [address] Eosinophils/100 WBC (Bld) 5.1 % Normal 1.0-6.0 [facility] Comment on above: Performed By: #### L IPA4, HEMDF, CMP3 #### [facility] [address] [place] [address] Erythrocyte distribution width (RBC) [Ratio] 14.9 % High 11.5-14.5 [facility] Comment on above: Performed By: #### L IPA4, HEMDF, CMP3 #### [facility] [address] [place] [address] Granulocytes/100 WBC (Bld) 67.3 % Normal 40.0-80.0 [facility] Comment on above: Performed By: #### L IPA4, HEMDF, CMP3 #### [facility] [address] [place] [address] Hematocrit (Bld) [Volume fraction] 36.5 % Low 40.0-52.0 [facility] Comment on above: Performed By: #### L IPA4, HEMDF, CMP3 #### [facility] [address] [place] [address] Hemoglobin (Bld) [Mass/Vol] 12.8 g/dL Low 13.0-18. 0 [facility] Comment on above: Performed By: #### L IPA4, HEMDF, CMP3 #### [facility] [address] [place] [address] Lymphocytes (Bld) [#/Vol] 1.5 10*3/uL Normal 1.0-4.3 [facility] Comment on above: Performed By: #### L IPA4, HEMDF, CMP3 #### [facility] [address] [place] [address] Lymphocytes/100 WBC (Bld) 18.9 % Low 20.0-40.0 [facility] Comment on above: Performed By: #### L IPA4, HEMDF, CMP3 #### [facility] [address] [place] [address] MCH (RBC) [Entitic mass] 30.4 pg Normal 26.0-34.0 [facility] Comment on above: Performed By: #### L IPA4, HEMDF, CMP3 #### [facility] [address] [place] [address] MCHC 35.1 % Normal 32.0-36.0 [facility] Comment on above: Performed By: #### L IPA4, HEMDF, CMP3 #### [facility] [address] [place] [address] MCV (RBC) [Entitic vol] 86.5 fL Normal 80.0-98.0 [facility] Comment on above: Performed By: #### L IPA4, HEMDF, CMP3 #### [facility] [address] [place] [address] Monocytes (Bld) [#/Vol] 0.6 10*3/uL Normal 0.0-0.8 [facility] Comment on above: Performed By: #### L IPA4, HEMDF, CMP3 #### [facility] [address] [place] [address] Monocytes/100 WBC (Bld) 7.8 % Normal 2.0-10.0 [facility] Comment on above: Performed By: #### L IPA4, HEMDF, CMP3 #### [facility] [address] [place] [address] Platelet mean volume (Bld) [Entitic vol] 6.4 fL Low 7.4-10.4 [facility] Comment on above: Performed By: #### L IPA4, HEMDF, CMP3 #### [facility] [address] [place] [address] Platelets (Bld) [#/Vol] 199 10*3/uL Normal 140-440 [facility] Comment on above: Performed By: #### L IPA4, HEMDF, CMP3 #### [facility] [address] [place] [address] RBC (Bld) [#/Vol] 4.22 10*6/uL Low 4.40-5.90 [facility] Comment on above: Performed By: #### L IPA4, HEMDF, CMP3 #### [facility] [address] [place] [address] WBC (Bld) [#/Vol] 8.1 10*3/uL Normal 3.6-10.7 [facility] Comment on above: Performed By: #### L IPA4, HEMDF, CMP3 #### [facility] [address] [place] [address] Lipaseon 11-26-2020 Lipase [Catalytic activity/Vol] 84 U/L Normal 23-300 [facility] Comment on above: Performed By: #### L IPA4, HEMDF, CMP3 #### [facility] [address] [place] [address] VL Venous Duplex US Lower Ex t Bilateralon 11-26-2020 VL Venous Duplex US Lower Ex t Bilateral Patient Name: SOPHIE HICKS Ultrasound ACCESSION EXAM DATE/TIME PROCEDURE ORDERING PROVIDER [id number] 11/26/2020 15:19 EDT VL Venous Duplex US NASRIN FINK DANIEL M Lower Ext Bilateral CPT code 91101 Reason For Exam (VL Venous Duplex US Lower Ext Bilateral) leg pain and swelling Report [facility] Lower Extremity Venous Duplex Report Patient Sophie Hicks : 1965 Study 11/26/2020 Name: Jordyn (55yrs) Date: Age: 55 Account: [id number] Gender: M Loc: 444 BP: Ordering Physician: Marisel Fink Risk Tech: Tiffanie Silva RDMS, RVT Interpreting Physician: Bakari Johnson MD Location: [facility] Indications: Edema and pain of the uppre and lower bilateral legs. Preliminary result was reported to Danae ORTA , by Tiffanie Silva , on 11/26/2020 , at 03:10 PM. Correct read-back was verified. Conclusions 1. There is no evidence of acute deep or superficial venous thrombosis noted in the right lower extremity. 2. There is no evidence of acute deep or superficial venous thrombosis noted in the left lower extremity. History: Risk factors: Obese. Immobility. Age over 50 years. ESRD. Study data: Complete lower extremity venous duplex evaluation. Grayscale 2D imaging, color Doppler imaging, and spectral Doppler analysis. Location: Bedside. Objective: Diagnostic evaluation. Procedure: A vascular evaluation was performed with the patient in the Ultrasound Report supine position. Images were obtained using a [employer] E9 vascular ultrasound machine. Venous flow and imaging: + -------+-------+--- + +Location +Overall+Properties + + -------+-------+--- + +R CFV +Patent +Normal phasicity; spontaneous; + + + +normal augmentation; compressible + + -------+-------+--- + +R saphenofemoral junction+Patent +Compressible + + -------+-------+--- + +R profunda femoral +Patent +Normal phasicity; spontaneous; + + + +normal augmentation + + -------+-------+--- + +R FV - prox. +Patent +Compressible + + -------+-------+--- + +R FV - mid +Patent +Normal phasicity; spontaneous; + + + +normal augmentation; compressible + + -------+-------+--- + +R FV - distal +Patent +Compressible + + -------+-------+--- + +R popliteal +Patent +Normal phasicity; spontaneous; + + + +normal augmentation; compressible + + -------+-------+--- + +R gastrocnemius +Patent +Compressible + + -------+-------+--- + +R PTV +Patent +Compressible + + -------+-------+--- + +R peroneal +Patent +Compressible + + -------+-------+--- + +R soleal +Patent +Compressible + + -------+-------+--- + +R GSV +Patent +Compressible + + -------+-------+--- + +L CFV +Patent +Normal phasicity; spontaneous; + + + +normal augmentation; compressible + + -------+-------+--- + +L saphenofemoral junction+Patent +Compressible + + -------+-------+--- + +L profunda femoral +Patent +Normal phasicity; spontaneous; + + + +normal augmentation + + -------+-------+--- + +L FV - prox. +Patent +Compressible + + -------+-------+--- + +L FV - mid +Patent +Normal phasicity; spontaneous; + + + +normal augmentation; compressible + + -------+-------+--- + +L FV - distal +Patent +Compressible + + -------+-------+--- + +L popliteal +Patent +Normal phasicity; spontaneous; + + + +normal augmentation; compressi (more content not included)... Normal [facility] CBC Auto DifferentialOrdered By: Mikye Bauman on 11-23-2020 Absolute Baso # 0.1 10*3/uL 0.0 - 0.2 10*3/uL [facility] Work Phone: 1 Absolute Neut # 5.8 10*3/uL 1.8 - 7.0 10*3/uL [facility] Work Phone: Basophils/100 WBC (Bld) 1.1 % 0.0 - 2.0 % [facility] Work Phone: Eosinophils (Bld) [#/Vol] 0.4 10*3/uL 0. 0 - 0.5 10*3/uL [facility] Work Phone: Eosinophils/100 WBC (Bld) 4.6 % 1. 0 - 6.0 % [facility] Work Phone: Granulocytes/100 WBC (Bld) 71.1 % 4 0.0 - 80.0 % [facility] Work Phone: Hematocrit (Bld) [Volume fraction] 37.4 % Low 40.0 - 52.0 % [facility] Work Phone: Hemoglobin.gastrointestinal spec 1 Ql (Stl) 12.9 g/dL Low 13.0 - 18.0 g/dL [facility] Work Phone: Interpretation and review of laboratory results Abnormal [facility] Work Phone: Lymphocytes (Bld) [#/Vol] 1.3 10*3/uL 1. 0 - 4.3 10*3/uL [facility] Work Phone: Lymphocytes/100 WBC (Bld) 16.6 % Low 20 .0 - 40.0 % [facility] Work Phone: MCH (RBC) [Entitic mass] 29.6 pg 26. 0 - 34.0 pg [facility] Work Phone: 1 MCHC (RBC) [Mass/Vol] 34.5 % 32.0 - 36.0 % [facility] Work Phone: MCV (RBC) [Entitic vol] 85.9 fL 80.0 - 98.0 fL [facility] Work Phone: 1 Monocytes (Bld) [#/Vol] 0.5 10*3/uL 0.0 - 0.8 10*3/uL [facility] Work Phone: Monocytes/100 WBC (Bld) 6.6 % 2.0 - 10.0 % [facility] Work Phone: Platelet distribution width (Bld) [Ratio] 15.6 % High 11.5 - 14.5 % [employer] Phone: Platelet mean volume (Bld) [Entitic vol] 5.4 fL Low 7.4 - 10.4 fL [employer] Phone: Platelets (Bld) [#/Vol] 215 10*3/uL 140 - 440 10*3/uL [facility] Work Phone: RBC (Bld) [#/Vol] 4.35 10*6/uL Low 4.40 - 5.90 10*6/uL [facility] Work Phone: WBC (Bld) [#/Vol] 8.1 10*3/uL 3.6 - 10.7 10*3/uL [facility] Work Phone: Test Performed by [facility], [address] , [place] [id number] [facility] Work Phone: [facility] Work Phone: Complete Urinalysison 2020 Bacteria Few (1-5) Abnormal Negative [facility] Comment on above: Result Comment: . Performed By: #### H EMDF, RENL3, TPUR, CRTUR, CUA2 #### [facility] [address] [place] [address] RBC, Urine 6 - 10 Abnormal 0-2 [facility] Comment on above: Result Comment: . Performed By: #### H EMDF, RENL3, TPUR, CRTUR, CUA2 #### [facility] [address] [place] [address] Squamous Epithelial 0 - 2 Normal 3-5 [facility] Comment on above: Result Comment: . Performed By: #### H EMDF, RENL3, TPUR, CRTUR, CUA2 #### [facility] [address] [place] [address] VOLUME, URINE 8-12 ml Normal [facility] Comment on above: Result Comment: . Performed By: #### H EMDF, RENL3, TPUR, CRTUR, CUA2 #### [facility] [address] [place] [address] WBC, Urine 3 - 5 Normal 0-5 [facility] Comment on above: Result Comment: . Performed By: #### H EMDF, RENL3, TPUR, CRTUR, CUA2 #### [facility] [address] [place] [address] Appearance (U) Clear Normal [facility] Comment on above: Result Comment: . Performed By: #### H EMDF, RENL3, TPUR, CRTUR, CUA2 #### [facility] [address] [place] [address] Bilirubin,Urine Negative Normal Negative [facility] Comment on above: Result Comment: . Performed By: #### H EMDF, RENL3, TPUR, CRTUR, CUA2 #### [facility] [address] [place] [address] Color (U) YELLOW Normal Lt. Yellow [facility] Comment on above: Result Comment: . Performed By: #### H EMDF, RENL3, TPUR, CRTUR, CUA2 #### [facility] [address] [place] [address] Glucose Ql (U) 70 mg/dL Normal Normal (<70) [facility] Comment on above: Result Comment: . Performed By: #### H EMDF, RENL3, TPUR, CRTUR, CUA2 #### [facility] [address] [place] [address] Ketone,Urine Negative Normal Negative [facility] Comment on above: Result Comment: . Performed By: #### H EMDF, RENL3, TPUR, CRTUR, CUA2 #### [facility] [address] [place] [address] Leukocytes,Urine Negative Normal Negative [facility] Comment on above: Result Comment: . Performed By: #### H EMDF, RENL3, TPUR, CRTUR, CUA2 #### [facility] [address] [place] [address] Nitrites,Urine Negative Normal Negative [facility] Comment on above: Result Comment: . Performed By: #### H EMDF, RENL3, TPUR, CRTUR, CUA2 #### [facility] [address] [place] [address] Occult Blood,Urine 0.06 mg/dL Abnormal Negative [facility] Comment on above: Result Comment: . Performed By: #### H EMDF, RENL3, TPUR, CRTUR, CUA2 #### [facility] [address] [place] [address] pH,Urine 6.5 Normal 5.0-8.0 [facility] Comment on above: Result Comment: . Performed By: #### H EMDF, RENL3, TPUR, CRTUR, CUA2 #### [facility] [address] [place] [address] Protein (U) [Mass/Vol] 200 mg/dL Abnormal Negative [facility] Comment on above: Result Comment: . Performed By: #### H EMDF, RENL3, TPUR, CRTUR, CUA2 #### [facility] [address] [place] [address] Specific Kirwin,Urine 1.017 Normal 1.005 - 1.030 [facility] Comment on above: Result Comment: . Performed By: #### H EMDF, RENL3, TPUR, CRTUR, CUA2 #### [facility] [address] [place] [address] Urobilinogen,Urine Normal Normal Normal (0-1) [facility] Comment on above: Result Comment: . Performed By: #### H EMDF, RENL3, TPUR, CRTUR, CUA2 #### [facility] [address] [place] [address] Creatinine, Random UrineOrde red By: Mikey Bauman on 11-23-2020 Creatinine (U) [Mass/Vol] 92.0 mg/dL No Range [facility] Work Phone: Test Performed by [facility], [address] , [address] Work Phone: [facility] Work Phone: Creatinine, Ur Randomon 11-11 Creatinine, Ur Random 92.0 mg/dL Normal No Range [facility] Comment on above: Performed By: #### H EMDF, RENL3, TPUR, CRTUR, CUA2 #### [facility] [address] [place] [address] Hemogram w/ Autodiffon 11-23 Abs Baso Cnt 0.1 10*3/uL Normal 0.0-0.2 [facility] Comment on above: Performed By: #### H EMDF, RENL3, TPUR, CRTUR, CUA2 #### [facility] [address] [place] [address] Abs Neutrophile Cnt 5.8 10*3/uL Normal 1.8-7.0 [facility] Comment on above: Performed By: #### H EMDF, RENL3, TPUR, CRTUR, CUA2 #### [facility] [address] [place] [address] Basophils/100 WBC (Bld) 1.1 % Normal 0.0-2.0 S [facility] Comment on above: Performed By: #### H EMDF, RENL3, TPUR, CRTUR, CUA2 #### [facility] [address] [place] [address] Eosinophils (Bld) [#/Vol] 0.4 10*3/uL Normal 0.0-0.5 [facility] Comment on above: Performed By: #### H EMDF, RENL3, TPUR, CRTUR, CUA2 #### [facility] [address] [place] [address] Eosinophils/100 WBC (Bld) 4.6 % Normal 1.0-6.0 [facility] Comment on above: Performed By: #### H EMDF, RENL3, TPUR, CRTUR, CUA2 #### [facility] [address] [place] [address] Erythrocyte distribution width (RBC) [Ratio] 15.6 % High 11.5-14.5 [facility] Comment on above: Performed By: #### H EMDF, RENL3, TPUR, CRTUR, CUA2 #### [facility] [address] [place] [address] Granulocytes/100 WBC (Bld) 71.1 % Normal 40.0-80.0 [facility] Comment on above: Performed By: #### H EMDF, RENL3, TPUR, CRTUR, CUA2 #### [facility] [address] [place] [address] Hematocrit (Bld) [Volume fraction] 37.4 % Low 40.0-52.0 [facility] Comment on above: Performed By: #### H EMDF, RENL3, TPUR, CRTUR, CUA2 #### [facility] [address] [place] [address] Hemoglobin (Bld) [Mass/Vol] 12.9 g/dL Low 13.0-18. 0 [facility] Comment on above: Performed By: #### H EMDF, RENL3, TPUR, CRTUR, CUA2 #### [facility] [address] [place] [address] Lymphocytes (Bld) [#/Vol] 1.3 10*3/uL Normal 1.0-4.3 [facility] Comment on above: Performed By: #### H EMDF, RENL3, TPUR, CRTUR, CUA2 #### [facility] [address] [place] [address] Lymphocytes/100 WBC (Bld) 16.6 % Low 20.0-40.0 [facility] Comment on above: Performed By: #### H EMDF, RENL3, TPUR, CRTUR, CUA2 #### [facility] [address] [place] [address] MCH (RBC) [Entitic mass] 29.6 pg Normal 26.0-34.0 [facility] Comment on above: Performed By: #### H EMDF, RENL3, TPUR, CRTUR, CUA2 #### [facility] [address] [place] [address] MCHC 34.5 % Normal 32.0-36.0 [facility] Comment on above: Performed By: #### H EMDF, RENL3, TPUR, CRTUR, CUA2 #### [facility] [address] [place] [address] MCV (RBC) [Entitic vol] 85.9 fL Normal 80.0-98.0 S [facility] Comment on above: Performed By: #### H EMDF, RENL3, TPUR, CRTUR, CUA2 #### [facility] [address] [place] [address] Monocytes (Bld) [#/Vol] 0.5 10*3/uL Normal 0.0-0.8 [facility] Comment on above: Performed By: #### H EMDF, RENL3, TPUR, CRTUR, CUA2 #### [facility] [address] [place] [address] Monocytes/100 WBC (Bld) 6.6 % Normal 2.0-10.0 S [facility] Comment on above: Performed By: #### H EMDF, RENL3, TPUR, CRTUR, CUA2 #### [facility] [address] [place] [address] Platelet mean volume (Bld) [Entitic vol] 5.4 fL Low 7.4-10.4 [facility] Comment on above: Performed By: #### H EMDF, RENL3, TPUR, CRTUR, CUA2 #### [facility] [address] [place] [address] Platelets (Bld) [#/Vol] 215 10*3/uL Normal 140-440 [facility] Comment on above: Performed By: #### H EMDF, RENL3, TPUR, CRTUR, CUA2 #### [facility] [address] [place] [address] RBC (Bld) [#/Vol] 4.35 10*6/uL Low 4.40-5.90 [facility] Comment on above: Performed By: #### H EMDF, RENL3, TPUR, CRTUR, CUA2 #### [facility] [address] [place] [address] WBC (Bld) [#/Vol] 8.1 10*3/uL Normal 3.6-10.7 [facility] Comment on above: Performed By: #### H EMDF, RENL3, TPUR, CRTUR, CUA2 #### [facility] [address] [place] [address] Protein, Ur Randomon 021 Protein, Ur Random 229 mg/dL High No Range [facility] Comment on above: Performed By: #### H EMDF, RENL3, TPUR, CRTUR, CUA2 #### [facility] [address] [place] [address] Protein, urine, randomOrdere d By: Mikey Bauman on 11-23-2020 Interpretation and review of laboratory results Abnormal [facility] Work Phone: [phone] Protein (U) [Mass/Vol] 229 mg/dL High No Range [facility] Work Phone: [phone] Test Performed by [facility], [address] , [place], [place] [address] [facility] Work Phone: [facility] Work Phone: [phone] Renal Functionon 11-23-2020 Calcium [Mass/Vol] 8.8 mg/dL Normal 8.4-10.4 [facility] Comment on above: Performed By: #### H EMDF, RENL3, TPUR, CRTUR, CUA2 #### [facility] [address] [place] [address] Phosphate [Mass/Vol] 3.4 mg/dL Normal 2.5-4.5 [facility] Comment on above: Performed By: #### H EMDF, RENL3, TPUR, CRTUR, CUA2 #### [facility] [address] [place] [address] Anion gap [Moles/Vol] 5 mmol/L Normal 3-13 [facility] Comment on above: Performed By: #### H EMDF, RENL3, TPUR, CRTUR, CUA2 #### [facility] [address] [place] [address] CO2 [Moles/Vol] 27 mmol/L Normal 22-30 [facility] Comment on above: Performed By: #### H EMDF, RENL3, TPUR, CRTUR, CUA2 #### [facility] [address] [place] [address] Creatinine [Mass/Vol] 1.08 mg/dL Normal 0.52-1.25 [facility] Comment on above: Performed By: #### H EMDF, RENL3, TPUR, CRTUR, CUA2 #### [facility] [address] [place] [address] GFR/1.73 sq M.predicted ramona g blacks MDRD (S/P/Bld) [Vol rate/Area] 87.8 mL/min/{1.73_m2} Normal >60 [facility] Comment on above: Performed By: #### H EMDF, RENL3, TPUR, CRTUR, CUA2 #### [facility] [address] [place] [address] GFR/1.73 sq M.predicted ramona g non-blacks MDRD (S/P/Bld) [Vol rate/Area] 75.7 mL/min/{1.73_m2} Normal >60 [facility] Comment on above: Result Comment: KDIG O guidelines provide the following GFR categories: Stage GFR(ml/min/1.73 m2) Terms G1 >=90 Normal or high G2 60-89 Mildly decreased* G3a 45-59 Mildly to moderately decreased G3b 30-44 Moderately to severely decreased G4 15-29 Severely decreased G5 <15 Kidney failure *Relative to young adult level. In the absence of evidence of kidney damage, neither GFR category G1 nor G2 fulfill the criteria for CKD. The CKD-EPI equation is validated in individuals 18 years of age and older. Currently the best equation for estimating glomerular filtration rate (GFR) from serum creatinine in children is the Bedside Oleary equation. It is less accurate in patients with extremes of muscle mass, restriction of dietary protein, ingestion of creatine, extra-renal metabolism of creatinine, or treatment with medications that affect renal tubular creatinine secretion. Performed By: #### H EMDF, RENL3, TPUR, CRTUR, CUA2 #### [facility] [address] [place] [address] Glucose [Mass/Vol] 185 mg/dL High 70-100 [facility] Comment on above: Performed By: #### H EMDF, RENL3, TPUR, CRTUR, CUA2 #### [facility] [address] [place] [address] Urea nitrogen [Mass/Vol] 18 mg/dL Normal 7-20 [facility] Comment on above: Performed By: #### H EMDF, RENL3, TPUR, CRTUR, CUA2 #### [facility] [address] [place] [address] Albumin [Mass/Vol] 3.7 g/dL Normal 3.5-5.0 [facility] Comment on above: Performed By: #### H EMDF, RENL3, TPUR, CRTUR, CUA2 #### [facility] [address] [place] [address] Chloride [Moles/Vol] 103 mmol/L Normal 98-107 [facility] Comment on above: Performed By: #### H EMDF, RENL3, TPUR, CRTUR, CUA2 #### [facility] [address] [place] [address] Potassium [Moles/Vol] 4.0 mmol/L Normal 3.5-5.1 [facility] Comment on above: Performed By: #### H EMDF, RENL3, TPUR, CRTUR, CUA2 #### [facility] [address] [place] [address] Sodium [Moles/Vol] 136 mmol/L Normal 135-145 [facility] [employer] [facility] Comment on above: Performed By: #### H EMDF, RENL3, TPUR, CRTUR, CUA2 #### [facility] [address] [place] [address] Renal Function PanelOrdered By: Mikey Bauman on 11-23-2020 Albumin [Mass/Vol] 3.7 g/dL 3.5 - 5.0 g/dL [facility] Work Phone: Anion gap [Moles/Vol] 5 mmol/L 3 - 13 mmol/L [facility] Work Phone: Calcium [Mass/Vol] 8.8 mg/dL 8.4 - 10. 4 mg/dL [facility] Work Phone: Chloride [Moles/Vol] 103 mmol/L 98 - 10 7 mmol/L [facility] Work Phone: CO2 [Moles/Vol] 27 mmol/L 22 - 30 mmol/L [facility] Work Phone: Creatinine [Mass/Vol] 1.08 mg/dL 0.52 - 1.25 mg/dL [facility] Work Phone: EGFR IF NonAfrican [place]i 75.7 mL/min >60 [facility] Work Phone: Comment on above: KDIGO guidelines pro vide the following GFR categories: Stage GFR(ml/min/1.73 m2) Terms G1 >=90 Normal or high G2 60-89 Mildly decreased* G3a 45-59 Mildly to moderately decreased G3b 30-44 Moderately to severely decreased G4 15-29 Severely decreased G5 <15 Kidney failure *Relative to young adult level. In the absence of evidence of kidney damage, neither GFR category G1 nor G2 fulfill the criteria for CKD. The CKD-EPI equation is validated in individuals 18 years of age and older. Currently the best equation for estimating glomerular filtration rate (GFR) from serum creatinine in children is the Bedside Oleary equation. It is less accurate in patients with extremes of muscle mass, restriction of dietary protein, ingestion of creatine, extra-renal metabolism of creatinine, or treatment with medications that affect renal tubular creatinine secretion. GFR/1.73 sq M.predicted ramona g blacks MDRD (S/P/Bld) [Vol rate/Area] 87.8 mL/min/{1.73_m2} >60 [facility] Work Phone: [phone] Glucose [Mass/Vol] 185 mg/dL High 70 - 100 mg/dL [facility] Work Phone: [phone] Interpretation and review of laboratory results Abnormal [facility] Work Phone: [phone] Phosphate [Mass/Vol] 3.4 mg/dL 2.5 - 4 .5 mg/dL [facility] Work Phone: [phone] Potassium [Moles/Vol] 4.0 mmol/L 3.5 - 5.1 mmol/L [facility] Work Phone: [phone] Sodium [Moles/Vol] 136 mmol/L 135 - 145 mmol/L [facility] Work Phone: [phone] Urea nitrogen (BldV) [Mass/Vol] 18 mg/dL 7 - 20 mg/dL [facility] Work Phone: [phone] Test Performed by [employer] [facility], [address] [place] [address] [address] Work Phone: [phone] [facility] Work Phone: [phone] UrinalysisOrdered By: Uri Bauman on 11-23-2020 Appearance (U) Clear Clear NA [facility] Work Phone: [phone] Comment on above: . Bacteria, UA Few (1-5) Abnormal Negative /[HPF] [facility] Work Phone: [phone] Comment on above: . Bilirubin Urine Negative Negative mg/dL [facility] Work Phone: [phone] Comment on above: . Color (U) YELLOW Lt. Yellow NA [facility] Work Phone: [phone] Comment on above: . Glucose, Ur 70 mg/dL Normal (<70) [facility] Work Phone: [phone] Comment on above: . Interpretation and review of laboratory results Abnormal [facility] Work Phone: [phone] Ketones Ql (U) Negative Negative mg/dL [facility] Work Phone: [phone] Comment on above: . LEUKOCYTES, UA Negative Negative Caprice/uL [facility] Work Phone: [phone] Comment on above: . Nitrite, Urine Negative Negative NA [facility] Work Phone: [phone] Comment on above: . Occult Blood,Urine 0.06 mg/dL Abnormal Negative [facility] Work Phone: Comment on above: . pH (U) 6.5 [pH] [facility] Work Phone: [phone] Comment on above: . Protein (U) [Mass/Vol] 200 mg/dL Abnormal Negative [facility] Work Phone: Comment on above: . RBC, UA 6-10 Abnormal 0 - 2 /[HPF] [facility] Work Phone: 1 Comment on above: . Specific Kirwin, Urine 1.017 S [facility] Work Phone: Comment on above: . Squam Epithel, UA 0-2 3 - 5 /[HPF] [facility] Work Phone: 1 Comment on above: . Urobilinogen, Urine Normal Normal (0-1) mg/dL [facility] Work Phone: Comment on above: . Volume 8-12 ml [facility] Work Phone: 1 Comment on above: . WBC, UA 3-5 0 - 5 /[HPF] [facility] Work Phone: Comment on above: . Test Performed by [facility], [address] [place], [place] [address]Christine [place], [place] [address] [facility] Work Phone: 1 [facility] Work Phone: PotassiumOrdered By: Arlin Sosa on 11-13-2020 Potassium [Moles/Vol] 4.0 mmol/L 3.5 - 5.1 mmol/L [facility] Work Phone: [phone] Test Performed by [facility], [address] [place] [address] [facility] Work Phone: [facility] Work Phone: Complete PFT Study Pre and P ost BronchodilatorOrdered By: Savanah Gomez on 11-08-2020 Name: SOPHIE HICKS PatientID: [id number] Gender: Male Birthdate: 1965 Study Date: 11/08/2020 8:11:42 A Age: 55 Race: White or Height: 73.0 in, 185.4 cm Weight: 372.0 lbs, 169.1 kg Smoke Status: Never Pack Years: Tbco Prod: Cigarettes Ordering Physician: [id number] Interpreting Physician: [id number] 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: SERENA Blackmon Location: [facility] Diagnosis: SOB Spirometry Units Pred PreDrug Pre%Pred Post Post%Pred %Change FVC L,btps 5.38 4.30 80. 4.25 79. -1. FEV1 L,btps 4.10 3.44 84. 3.48 85. 1. FEV1/FVC (%) % 76. 80. 105. 82. 107. 3. JML96-30% L/s 3.41 3.10 91. 3.26 96. 5. FEFmax L/s 10.12 8.52 84. 10.54 104. 24. MVV in,btps 136.66 123.88 91. Lung Volumes (Body Box) Units Pred PreDrug Pre%Pred TLC L,btps 7.83 VC L,btps 5.38 IC L,btps 4.07 FRC L,btps 3.76 ERV L,btps 1.31 RV L,btps 2.45 RV/TLC (%) % 31. VTG L,btps RAW H2O/L/s 1.18 SGaw cmH2O/L 0.23 Diffusion (DLCO) Units Pred PreDrug Pre%Pred DLCO ml/min/mmHg,stpd 34.24 24.69 72. DLCOHb ml/min/mmHg,stpd 34.24 24.69 72. VAsb L,btps 7.65 5.30 69. D/VAsb ml/min/mmHg/L,stpd 4.48 4.65 104. D/VAsbHb ml/min/mmHg/L,stpd 4.48 4.65 104. VInsp L 4.11 Hgb g/dl 14.60 COHb % Nitrogen Washout Units Pred PreDrug Pre%Pred TLC L,btps 7.83 6.30 80. VC L,btps 5.38 4.09 76. FRC L,btps 3.76 2.63 70. IC L,btps 4.07 3.66 90. ERV L,btps 1.31 0.42 32. RV L,btps 2.45 2.21 90. RV/TLC (%) % 31. 35. 112. Lung Mechanics Units Pred PreDrug Pre%Pred PImax /MIP cmH2O -83.29 PEmax /MEP cmH2O 128.13 FIRER TUNNEL KILN NOTES Good Patient effort. Consistent results. Best results reported.Calibratio n check passed with acceptable system performance. The patient performed all pre-test requirements. Pt has sob with rest and exertion. Pt denies having a cough. Pt was given an Albuterol MDI x4 puffs via a spacer that was instructed and dispensed. [address]- PRE/[place] [address]- DLCO 54687- FRC GAS Tests to perform: [id number] - FULL PFT STUDY WITH BRONCHODILATOR PHYSICIAN INTERPRETATION Patient effort was satisfactory. FEV1 FVC ratio is normal. Both FEV1 and FVC are normal there was no bronchodilator response. Total lung capacity is normal. Diffusion capacity is normal [facility] Work Phone: Kirk, [facility] Incoming Cardiology Results From [facility] - 11/08/2020 10:34 AM EDT Name: SOPHIE HICKS PatientID: [id number] Gender: Male Birthdate: 1965 Study Date: 11/08/2020 8:11:42 A Age: 55 Race: White or Height: 73.0 in, 185.4 cm Weight: 372.0 lbs, 169.1 kg Smoke Status: Never Pack Years: Tbco Prod: Cigarettes Ordering Physician: [id number] Interpreting Physician: [id number] 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: SERENA Testing Location: [facility] Diagnosis: SOB Spirometry Units Pred PreDrug Pre%Pred Post Post%Pred %Change FVC L,btps 5.38 4.30 80. 4.25 79. -1. FEV1 L,btps 4.10 3.44 84. 3.48 85. 1. FEV1/FVC (%) % 76. 80. 105. 82. 107. 3. SMF54-50% L/s 3.41 3.10 91. 3.26 96. 5. FEFmax L/s 10.12 8.52 84. 10.54 104. 24. MVV in,btps 136.66 123.88 91. Lung Volumes (Body Box) Units Pred PreDrug Pre%Pred TLC L,btps 7.83 VC L,btps 5.38 IC L,btps 4.07 FRC L,btps 3.76 ERV L,btps 1.31 RV L,btps 2.45 RV/TLC (%) % 31. VTG L,btps RAW H2O/L/s 1.18 SGaw cmH2O/L 0.23 Diffusion (DLCO) Units Pred PreDrug Pre%Pred DLCO ml/min/mmHg,stpd 34.24 24.69 72. DLCOHb ml/min/mmHg,stpd 34.24 24.69 72. VAsb L,btps 7.65 5.30 69. D/VAsb ml/min/mmHg/L,stpd 4.48 4.65 104. D/VAsbHb ml/min/mmHg/L,stpd 4.48 4.65 104. VInsp L 4.11 Hgb g/dl 14.60 COHb % Nitrogen Washout Units Pred PreDrug Pre%Pred TLC L,btps 7.83 6.30 80. VC L,btps 5.38 4.09 76. FRC L,btps 3.76 2.63 70. IC L,btps 4.07 3.66 90. ERV L,btps 1.31 0.42 32. RV L,btps 2.45 2.21 90. RV/TLC (%) % 31. 35. 112. Lung Mechanics Units Pred PreDrug Pre%Pred PImax /MIP cmH2O -83.29 PEmax /MEP cmH2O 128.13 FIRER TUNNEL KILN NOTES Good Patient effort. Consistent results. Best results reported.Calibratio n check passed with acceptable system performance. The patient performed all pre-test requirements. Pt has sob with rest and exertion. Pt denies having a cough. Pt was given an Albuterol MDI x4 puffs via a spacer that was instructed and dispensed. [address]- [place] [address]- DLCO 33740- FRC GAS Tests to perform: [id number] - FULL PFT STUDY WITH BRONCHODILATOR PHYSICIAN INTERPRETATION Patient effort was satisfactory. FEV1 FVC ratio is normal. Both FEV1 and FVC are normal there was no bronchodilator response. Total lung capacity is normal. Diffusion capacity is normal [facility] Work Phone: [facility] Work Phone: CT Abdomen Pelvis Wo Ryan tOrdered By: Chante Juarez on 11-01-2020 Patient Name: SOPHIE HICKS Computed Tomography ACCESSION EXAM DATE/TIME PROCEDURE ORDERING PROVIDER [id number] 11/01/2020 05:[address] Abdomen/Pelvis (No 5816 -CHANTE JUAREZ PO, No IV) CPT code 48752 Reason For Exam (CT Abdomen/Pelvis (No PO, No IV)) right flank pain Report CT ABDOMEN AND PELVIS WITHOUT IV CONTRAST CLINICAL INDICATION: Right flank pain and hematuria. TECHNIQUE: Multidetector axial CT images through the abdomen and pelvis were obtained without IV contrast. No oral contrast was administered. Images were reconstructed in sagittal and coronal planes. COMPARISON: 09/29/2020. FINDINGS: This examination is limited for the evaluation of solid organs and vascular structures due to the lack of intravenous contrast. Lung bases: Normal. Liver: Liver is slightly enlarged measuring 22 cm. No hepatic lesion Biliary tree: The gallbladder is incompletely distended with bile. No biliary dilation. . Spleen: Normal spleen size without lesions. Adrenals: Normal. Pancreas: No pancreatic mass or pancreatic duct dilation. Kidneys: No contour abnormality or focal renal lesion identified. Renal collecting systems: No calculi, hydronephrosis or ureteral dilatation. Free air or fluid: None. Mesenteric/retroper itoneal: No adenopathy or inflammation. Aorta: The aorta is normal in caliber. Bowel: The appendix is not identified. No dilatation is noted.. . Pelvic organs/viscera: No pelvic free fluid No mass is identified. Conte catheter balloon tip within the decompressed urinary bladder Bladder: No calculi or filling defects. Urinary bladder is incompletely Computed Tomography Report distended. . Inguinal: No adenopathy. Abdominal wall/soft tissues: No ventral hernia is evident. Osseous structures: No osseous abnormalities. no pelvic fractures are evident. IMPRESSION: No acute abdominal or pelvic process. Prominent liver size may be secondary to body habitus. No evidence of renal or ureteral calculi. Report Dictated on --- Final --- Dictating Physician: CHANTE MUELLER DO, I Signed Date and Time: 11/01/2020 6:00 am Signed by: CHANTE MUELLER DO, I Transcribed Date and Time: 11/01/2020 6:02 [facility] Work Phone: [facility], [facility] Incoming Radiology Results From [facility] - 11/01/2020 6:02 AM EDT Patient Name: SOPHIE HICKS Computed Tomography ACCESSION EXAM DATE/TIME PROCEDURE ORDERING PROVIDER [id number] 11/01/2020 05:[address] Abdomen/Pelvis (No 5816 -CHANTE JUAREZ PO, No IV) CPT code 29437 Reason For Exam (CT Abdomen/Pelvis (No PO, No IV)) right flank pain Report CT ABDOMEN AND PELVIS WITHOUT IV CONTRAST CLINICAL INDICATION: Right flank pain and hematuria. TECHNIQUE: Multidetector axial CT images through the abdomen and pelvis were obtained without IV contrast. No oral contrast was administered. Images were reconstructed in sagittal and coronal planes. COMPARISON: 09/29/2020. FINDINGS: This examination is limited for the evaluation of solid organs and vascular structures due to the lack of intravenous contrast. Lung bases: Normal. Liver: Liver is slightly enlarged measuring 22 cm. No hepatic lesion Biliary tree: The gallbladder is incompletely distended with bile. No biliary dilation. . Spleen: Normal spleen size without lesions. Adrenals: Normal. Pancreas: No pancreatic mass or pancreatic duct dilation. Kidneys: No contour abnormality or focal renal lesion identified. Renal collecting systems: No calculi, hydronephrosis or ureteral dilatation. Free air or fluid: None. Mesenteric/retroper itoneal: No adenopathy or inflammation. Aorta: The aorta is normal in caliber. Bowel: The appendix is not identified. No dilatation is noted.. . Pelvic organs/viscera: No pelvic free fluid No mass is identified. Conte catheter balloon tip within the decompressed urinary bladder Bladder: No calculi or filling defects. Urinary bladder is incompletely Computed Tomography Report distended. . Inguinal: No adenopathy. Abdominal wall/soft tissues: No ventral hernia is evident. Osseous structures: No osseous abnormalities. no pelvic fractures are evident. IMPRESSION: No acute abdominal or pelvic process. Prominent liver size may be secondary to body habitus. No evidence of renal or ureteral calculi. Report Dictated on --- Final --- Dictating Physician: CHANTE MUELLER DO, I Signed Date and Time: 11/01/2020 6:00 am Signed by: CHANTE MUELLER DO, I Transcribed Date and Time: 11/01/2020 6:02 [facility] Work Phone: [phone] [facility] Work Phone: [phone] Comprehensive Metabolic Pane lOrdered By: Chante Juarez on 11-01-2020 Albumin [Mass/Vol] 3.8 g/dL 3.5 - 5.0 g/dL [facility] Work Phone: [phone] ALP (Bld) [Catalytic activity/Vol] 58 U/L 38 - 126 U/L [facility] Work Phone: [phone] ALT [Catalytic activity/Vol] 36 U/L 0 - 49 U/L [facility] Work Phone: [phone] Comment on above: The ALT test is perf ormed by an updated assay method. Please note that the reference intervals have been changed and are now sex specific. Anion gap [Moles/Vol] 6 mmol/L 3 - 13 mmol/L [facility] Work Phone: [phone] AST [Catalytic activity/Vol] 68 U/L High 15 - 46 U/L [facility] Work Phone: [phone] Bilirubin [Mass/Vol] 0.6 mg/dL 0.2 - 1 .3 mg/dL [facility] Work Phone: [phone] Calcium [Mass/Vol] 8.7 mg/dL 8.4 - 10. 4 mg/dL [facility] Work Phone: [phone] Chloride [Moles/Vol] 98 mmol/L 98 - 10 7 mmol/L [facility] Work Phone: [phone] CO2 [Moles/Vol] 28 mmol/L 22 - 30 mmol/L [facility] Work Phone: [phone] Creatinine [Mass/Vol] 1.12 mg/dL 0.52 - 1.25 mg/dL [facility] Work Phone: [phone] EGFR IF NonAfrican [place]i 72.5 mL/min >60 [facility] Work Phone: [phone] Comment on above: KDIGO guidelines pro vide the following GFR categories: Stage GFR(ml/min/1.73 m2) Terms G1 >=90 Normal or high G2 60-89 Mildly decreased* G3a 45-59 Mildly to moderately decreased G3b 30-44 Moderately to severely decreased G4 15-29 Severely decreased G5 <15 Kidney failure *Relative to young adult level. In the absence of evidence of kidney damage, neither GFR category G1 nor G2 fulfill the criteria for CKD. The CKD-EPI equation is validated in individuals 18 years of age and older. Currently the best equation for estimating glomerular filtration rate (GFR) from serum creatinine in children is the Bedside Oleary equation. It is less accurate in patients with extremes of muscle mass, restriction of dietary protein, ingestion of creatine, extra-renal metabolism of creatinine, or treatment with medications that affect renal tubular creatinine secretion. Free PSA/Total PSA [Mass fraction] 6.6 g/dL 6.3 - 8.2 g/dL [facility] Work Phone: [phone] GFR/1.73 sq M.predicted ramona g blacks MDRD (S/P/Bld) [Vol rate/Area] 84.0 mL/min/{1.73_m2} >60 [facility] Work Phone: [phone] Glucose [Mass/Vol] 178 mg/dL High 70 - 100 mg/dL [facility] Work Phone: [phone] Interpretation and review of laboratory results Abnormal [facility] Work Phone: [phone] Potassium [Moles/Vol] 3.3 mmol/L Low 3.5 - 5.1 mmol/L [facility] Work Phone: [phone] Sodium [Moles/Vol] 133 mmol/L Low 135 - 145 mmol/L [facility] Work Phone: [phone] Urea nitrogen (BldV) [Mass/Vol] 22 mg/dL High 7 - 20 mg/dL [facility] Work Phone: [phone] Test Performed by [facility], [address] [place] [address] [facility] Work Phone: [phone] [facility] Work Phone: [phone] Hemogram (CBC) w/Auto DiffOr dered By: Chante Juarez on 11-01-2020 Absolute Baso # 0.1 10*3/uL 0.0 - 0.2 10*3/uL [facility] Work Phone: [phone] Absolute Neut # 5.4 10*3/uL 1.8 - 7.0 10*3/uL [facility] Work Phone: [phone] Basophils/100 WBC (Bld) 1.2 % 0.0 - 2.0 % [facility] Work Phone: 1 Eosinophils (Bld) [#/Vol] 0.2 10*3/uL 0. 0 - 0.5 10*3/uL [facility] Work Phone: [phone] 22 Eosinophils/100 WBC (Bld) 3.1 % 1. 0 - 6.0 % [facility] Work Phone: 1 Granulocytes/100 WBC (Bld) 71.6 % 4 0.0 - 80.0 % [facility] Work Phone: 1 Hematocrit (Bld) [Volume fraction] 37.7 % Low 40.0 - 52.0 % [facility] Work Phone: Hemoglobin.gastrointestinal spec 1 Ql (Stl) 13.3 g/dL 13.0 - 18.0 g/dL [facility] Work Phone: [phone] Interpretation and review of laboratory results Abnormal [facility] Work Phone: 1 Lymphocytes (Bld) [#/Vol] 1.1 10*3/uL 1. 0 - 4.3 10*3/uL [facility] Work Phone: 1 Lymphocytes/100 WBC (Bld) 15.1 % Low 20 .0 - 40.0 % [facility] Work Phone: [phone] MCH (RBC) [Entitic mass] 30.7 pg 26. 0 - 34.0 pg [facility] Work Phone: MCHC (RBC) [Mass/Vol] 35.2 % 32.0 - 36.0 % [facility] Work Phone: [phone] MCV (RBC) [Entitic vol] 87.3 fL 80.0 - 98.0 fL [facility] Work Phone: Monocytes (Bld) [#/Vol] 0.7 10*3/uL 0.0 - 0.8 10*3/uL [facility] Work Phone: 1 Monocytes/100 WBC (Bld) 9.0 % 2.0 - 10.0 % [facility] Work Phone: 1 Platelet distribution width (Bld) [Ratio] 15.9 % High 11.5 - 14.5 % [facility] Work Phone: Platelet mean volume (Bld) [Entitic vol] 6.2 fL Low 7.4 - 10.4 fL [facility] Work Phone: 1 Platelets (Bld) [#/Vol] 220 10*3/uL 140 - 440 10*3/uL [facility] Work Phone: RBC (Bld) [#/Vol] 4.32 10*6/uL Low 4.40 - 5.90 10*6/uL [facility] Work Phone: WBC (Bld) [#/Vol] 7.6 10*3/uL 3.6 - 10.7 10*3/uL [facility] Work Phone: 1 Test Performed by [facility], [address] [place] [address] [place], [place] [address] [facility] Work Phone: [facility] Work Phone: UrinalysisOrdered By: Chante Juarez on 11-01-2020 Appearance (U) Cloudy Abnormal Clear NA [facility] Work Phone: Comment on above: . Bacteria, UA Few (1-5) Abnormal Negative /[HPF] [facility] Work Phone: Comment on above: . Bilirubin Urine Negative Negative mg/dL [facility] Work Phone: 1 Comment on above: . Color (U) Red Abnormal Lt. Yellow NA [facility] Work Phone: Comment on above: . Glucose, Ur Normal Normal (<70) mg/dL [facility] Work Phone: 1 Comment on above: . Interpretation and review of laboratory results Abnormal [facility] Work Phone: Ketones Ql (U) Negative Negative mg/dL [facility] Work Phone: 1 Comment on above: . LEUKOCYTES, UA 25 Abnormal Negative Caprice/uL [facility] Work Phone: 1 Comment on above: . Mucous Threads Few Negative /[LPF] [facility] Work Phone: Comment on above: . Nitrite, Urine Negative Negative NA [facility] Work Phone: 1 Comment on above: . Occult Blood,Urine 1.0 mg/dL Abnormal Negative [facility] Work Phone: 1 Comment on above: . pH (U) 6.0 [pH] [facility] Work Phone: 1 Comment on above: . Protein (U) [Mass/Vol] 300 mg/dL Abnormal Negative [facility] Work Phone: Comment on above: . RBC, UA 51-100 Abnormal 0 - 2 /[HPF] [facility] Work Phone: 1 Comment on above: . Specific Kirwin, Urine >1.030 Abnormal S [facility] Work Phone: Comment on above: . Urobilinogen, Urine Normal Normal (0-1) mg/dL [facility] Work Phone: 1 Comment on above: . WBC, UA 0-2 0 - 5 /[HPF] [facility] Work Phone: Comment on above: . Test Performed by [facility], [address] [place] [address] Macroscopic was preformed on supernatant and Microscopic was done on unspun urine. [facility] Work Phone: 1 [facility] Work Phone: Basic Metabolic PanelOrdered By: Rupali Sargent on 10-31-2020 Anion gap [Moles/Vol] 5 mmol/L 3 - 13 mmol/L [facility] Work Phone: Calcium [Mass/Vol] 9.0 mg/dL 8.4 - 10. 4 mg/dL [facility] Work Phone: 1 Chloride [Moles/Vol] 100 mmol/L 98 - 10 7 mmol/L [facility] Work Phone: CO2 [Moles/Vol] 29 mmol/L 22 - 30 mmol/L [facility] Work Phone: [phone] Creatinine [Mass/Vol] 1.04 mg/dL 0.52 - 1.25 mg/dL [facility] Work Phone: [phone] IF NonAfrican [place] 79.3 mL/min >60 [facility] Work Phone: [phone] Comment on above: KDIGO guidelines pro vide the following GFR categories: Stage GFR(ml/min/1.73 m2) Terms G1 >=90 Normal or high G2 60-89 Mildly decreased* G3a 45-59 Mildly to moderately decreased G3b 30-44 Moderately to severely decreased G4 15-29 Severely decreased G5 <15 Kidney failure *Relative to young adult level. In the absence of evidence of kidney damage, neither GFR category G1 nor G2 fulfill the criteria for CKD. The CKD-EPI equation is validated in individuals 18 years of age and older. Currently the best equation for estimating glomerular filtration rate (GFR) from serum creatinine in children is the Bedside Oleary equation. It is less accurate in patients with extremes of muscle mass, restriction of dietary protein, ingestion of creatine, extra-renal metabolism of creatinine, or treatment with medications that affect renal tubular creatinine secretion. GFR/1.73 sq M.predicted ramona g blacks MDRD (S/P/Bld) [Vol rate/Area] mL/min/{1.73_m2} >60 mL/min [facility] Work Phone: [phone] Glucose [Mass/Vol] 135 mg/dL High 70 - 100 mg/dL [facility] Work Phone: [phone] Interpretation and review of laboratory results Abnormal [facility] Work Phone: [phone] Potassium [Moles/Vol] 3.6 mmol/L 3.5 - 5.1 mmol/L [facility] Work Phone: [phone] Sodium [Moles/Vol] 134 mmol/L Low 135 - 145 mmol/L [facility] Work Phone: [phone] Urea nitrogen (BldV) [Mass/Vol] 22 mg/dL High 7 - 20 mg/dL [facility] Work Phone: [phone] Test Performed by [facility], [address] [place] [address]. [place], [place] [address] [facility] Work Phone: [phone] [facility] Work Phone: [phone] Hemogram (CBC) w/Auto DiffOr dered By: Rupali Sargent on 10-31-2020 Absolute Baso # 0.1 10*3/uL 0.0 - 0.2 10*3/uL [facility] Work Phone: [phone] Absolute Neut # 8.4 10*3/uL High 1.8 - 7.0 10*3/uL [facility] Work Phone: [phone] Basophils/100 WBC (Bld) 1.2 % 0.0 - 2.0 % [facility] Work Phone: [phone] Eosinophils (Bld) [#/Vol] 0.3 10*3/uL 0. 0 - 0.5 10*3/uL [facility] Work Phone: [phone] Eosinophils/100 WBC (Bld) 3.0 % 1. 0 - 6.0 % [facility] Work Phone: Granulocytes/100 WBC (Bld) 76.2 % 4 0.0 - 80.0 % [facility] Work Phone: [phone] Hematocrit (Bld) [Volume fraction] 39.4 % Low 40.0 - 52.0 % [facility] Work Phone: [phone] Hemoglobin.gastrointestinal spec 1 Ql (Stl) 13.7 g/dL 13.0 - 18.0 g/dL [facility] Work Phone: [phone] Interpretation and review of laboratory results Abnormal [facility] Work Phone: Lymphocytes (Bld) [#/Vol] 1.3 10*3/uL 1. 0 - 4.3 10*3/uL [facility] Work Phone: [phone] Lymphocytes/100 WBC (Bld) 11.6 % Low 20 .0 - 40.0 % [facility] Work Phone: [phone] MCH (RBC) [Entitic mass] 30.6 pg 26. 0 - 34.0 pg [facility] Work Phone: [phone] MCHC (RBC) [Mass/Vol] 34.7 % 32.0 - 36.0 % [facility] Work Phone: ( MCV (RBC) [Entitic vol] 88.3 fL 80.0 - 98.0 fL [facility] Work Phone: 1 Monocytes (Bld) [#/Vol] 0.9 10*3/uL High 0.0 - 0.8 10*3/uL [facility] Work Phone: 1 Monocytes/100 WBC (Bld) 8.0 % 2.0 - 10.0 % [facility] Work Phone: Platelet distribution width (Bld) [Ratio] 16.3 % High 11.5 - 14.5 % [facility] Work Phone: Platelet mean volume (Bld) [Entitic vol] 6.3 fL Low 7.4 - 10.4 fL [facility] Work Phone: Platelets (Bld) [#/Vol] 278 10*3/uL 140 - 440 10*3/uL [facility] Work Phone: RBC (Bld) [#/Vol] 4.46 10*6/uL 4.40 - 5.90 10*6/uL [facility] Work Phone: WBC (Bld) [#/Vol] 11.1 10*3/uL High 3.6 - 10.7 10*3/uL [facility] Work Phone: Test Performed by [facility], [address] [place] [address] [facility] Work Phone: [facility] Work Phone: UrinalysisOrdered By: Sanjuanita Sargent on 10-31-2020 Appearance (U) Clear Clear NA [facility] Work Phone: Comment on above: . Bacteria, UA Negative Negative /[HPF] [facility] Work Phone: Comment on above: . Bilirubin Urine Negative Negative mg/dL [facility] Work Phone: Comment on above: . Color (U) Yellow Lt. Yellow NA [facility] Work Phone: Comment on above: . Glucose, Ur Normal Normal (<70) mg/dL [facility] Work Phone: [phone]) Comment on above: . Interpretation and review of laboratory results Abnormal [facility] Work Phone: 1 Ketones Ql (U) Negative Negative mg/dL [facility] Work Phone: 1 Comment on above: . LEUKOCYTES, UA Negative Negative Caprice/uL [facility] Work Phone: 1 Comment on above: . Mucous Threads Few Negative /[LPF] [facility] Work Phone: 1 Comment on above: . Nitrite, Urine Negative Negative NA [facility] Work Phone: 1 Comment on above: . Occult Blood,Urine 0.03 mg/dL Abnormal Negative [facility] Work Phone: 1 Comment on above: . pH (U) 6.5 [pH] [facility] Work Phone: Comment on above: . Protein (U) [Mass/Vol] 300 mg/dL Abnormal Negative [facility] Work Phone: 1 Comment on above: . RBC, UA 0-2 0 - 2 /[HPF] [facility] Work Phone: 1 Comment on above: . Specific [place]win, Urine [address] [facility] Work Phone: 1 Comment on above: . Squam Epithel, UA Negative 3 - 5 /[HPF] [facility] Work Phone: 1 Comment on above: . Urobilinogen, Urine Normal Normal (0-1) mg/dL [facility] Work Phone: 1 Comment on above: . WBC, UA 0-2 0 - 5 /[HPF] [facility] Work Phone: 1 Comment on above: . Test Performed by [facility], [address] [place], [place] [address] [facility] Work Phone: 1 [facility] Work Phone: 1 Basic Metabolic PanelOrdered By: Louisa Marina on 10-30-2020 Anion gap [Moles/Vol] 10 mmol/L 3 - 13 mmol/L [facility] Work Phone: [phone] Calcium [Mass/Vol] 8.9 mg/dL 8.4 - 10. 4 mg/dL [facility] Work Phone: [phone] Chloride [Moles/Vol] 97 mmol/L Low 98 - 10 7 mmol/L [facility] Work Phone: [phone] CO2 [Moles/Vol] 27 mmol/L 22 - 30 mmol/L [facility] Work Phone: [phone] Creatinine [Mass/Vol] 1.13 mg/dL 0.52 - 1.25 mg/dL [facility] Work Phone: [phone] EGFR IF NonAfrican [place] 71.7 mL/min >60 [facility] Work Phone: [phone] Comment on above: KDIGO guidelines pro vide the following GFR categories: Stage GFR(ml/min/1.73 m2) Terms G1 >=90 Normal or high G2 60-89 Mildly decreased* G3a 45-59 Mildly to moderately decreased G3b 30-44 Moderately to severely decreased G4 15-29 Severely decreased G5 <15 Kidney failure *Relative to young adult level. In the absence of evidence of kidney damage, neither GFR category G1 nor G2 fulfill the criteria for CKD. The CKD-EPI equation is validated in individuals 18 years of age and older. Currently the best equation for estimating glomerular filtration rate (GFR) from serum creatinine in children is the Bedside Oleary equation. It is less accurate in patients with extremes of muscle mass, restriction of dietary protein, ingestion of creatine, extra-renal metabolism of creatinine, or treatment with medications that affect renal tubular creatinine secretion. GFR/1.73 sq M.predicted ramona g blacks MDRD (S/P/Bld) [Vol rate/Area] 83.1 mL/min/{1.73_m2} >60 [facility] Work Phone: [phone] Glucose [Mass/Vol] 189 mg/dL High 70 - 100 mg/dL [facility] Work Phone: [phone] Potassium [Moles/Vol] 3.2 mmol/L Low 3.5 - 5.1 mmol/L [facility] Work Phone: [phone] Sodium [Moles/Vol] 135 mmol/L 135 - 145 mmol/L [facility] Work Phone: [phone] Urea nitrogen (BldV) [Mass/Vol] 20 mg/dL 7 - 20 mg/dL [facility] Work Phone: [phone] Hemogram (CBC)Ordered By: Giovanni Marina on 10-30-2020 Hematocrit (Bld) [Volume fraction] 39.2 % Low 40.0 - 52.0 % [facility] Work Phone: Hemoglobin.gastrointestinal spec 1 Ql (Stl) 13.7 g/dL 13.0 - 18.0 g/dL [facility] Work Phone: Interpretation and review of laboratory results Abnormal [facility] Work Phone: MCH (RBC) [Entitic mass] 30.3 pg 26. 0 - 34.0 pg [facility] Work Phone: MCHC (RBC) [Mass/Vol] 34.9 % 32.0 - 36.0 % [facility] Work Phone: MCV (RBC) [Entitic vol] 87.0 fL 80.0 - 98.0 fL [facility] Work Phone: Platelet distribution width (Bld) [Ratio] 16.2 % High 11.5 - 14.5 % [facility] Work Phone: Platelet mean volume (Bld) [Entitic vol] 6.1 fL Low 7.4 - 10.4 fL [facility] Work Phone: Platelets (Bld) [#/Vol] 266 10*3/uL 140 - 440 10*3/uL [facility] Work Phone: RBC (Bld) [#/Vol] 4.50 10*6/uL 4.40 - 5.90 10*6/uL [facility] Work Phone: WBC (Bld) [#/Vol] 9.6 10*3/uL 3.6 - 10.7 10*3/uL [facility] Work Phone: Test Performed by [facility] [address] yetu Work Phone: yetu Work Phone: Hepatic Function PanelOrdere d By: Louisa Marina on 10-30-2020 Albumin [Mass/Vol] 4.0 g/dL 3.5 - 5.0 g/dL [facility] Work Phone: [phone] ALP (Bld) [Catalytic activity/Vol] 88 U/L 38 - 126 U/L [facility] Work Phone: 1 ALT [Catalytic activity/Vol] 35 U/L 0 - 49 U/L [facility] Work Phone: [phone] Comment on above: The ALT test is perf ormed by an updated assay method. Please note that the reference intervals have been changed and are now sex specific. AST [Catalytic activity/Vol] 47 U/L High 15 - 46 U/L [facility] Work Phone: [phone] Bilirubin [Mass/Vol] 0.5 mg/dL 0.2 - 1 .3 mg/dL [facility] Work Phone: 1 Bilirubin.indirect [Mass/Vol] 0.0 mg/dL 0.0 - 0.3 mg/dL [facility] Work Phone: 1 Free PSA/Total PSA [Mass fraction] 7.1 g/dL 6.3 - 8.2 g/dL [facility] Work Phone: [phone] LipaseOrdered By: Louisa aragon on 10-30-2020 Lipase [Catalytic activity/Vol] 128 U/L 23 - 300 U/L [facility] Work Phone: [phone] Panel InformationOrdered By: Louisa Marina on 10-30-2020 Interpretation and review of laboratory results Abnormal [facility] Work Phone: [phone] Test Performed by [facility], [facility] [place] [address] yetu Work Phone: [facility] Work Phone: [phone] Troponin [id number] By: Louisa Marina on 10-30-2020 Troponin I.cardiac [Mass/Vol] ng/mL 0.000 - 0.034 ng/mL [facility] Work Phone: [phone] Comment on above: . Test Performed by [facility], [facility] [place] [address] [facility]u Work Phone: [phone] [facility] Work Phone: [phone] UrinalysisOrdered By: Louisa Romero on 10-30-2020 Appearance (U) Clear Clear NA [facility] Work Phone: [phone] Comment on above: . Bacteria, UA Negative Negative /[HPF] [facility] Work Phone: [phone] Comment on above: . Bilirubin Urine Negative Negative mg/dL [facility] Work Phone: [phone] Comment on above: . Color (U) Light-Yellow Lt. Yellow NA [facility] Work Phone: [phone] Comment on above: . Glucose, Ur 30 mg/dL Normal (<70) [facility] Work Phone: [phone] Comment on above: . Hyaline Casts, UA Negative Negative /[LPF] [facility] Work Phone: [phone] Comment on above: . Interpretation and review of laboratory results Abnormal [facility] Work Phone: [phone] Ketones Ql (U) Negative Negative mg/dL [facility] Work Phone: [phone] Comment on above: . LEUKOCYTES, UA Negative Negative Caprice/uL [facility] Work Phone: [phone] Comment on above: . Mucous Threads Few Negative /[LPF] [facility] Work Phone: [phone] Comment on above: . Nitrite, Urine Negative Negative NA [facility] Work Phone: [phone] Comment on above: . Occult Blood,Urine 0.06 mg/dL Abnormal Negative [facility] Work Phone: [phone] Comment on above: . pH (U) 6.5 [pH] [facility] Work Phone: [phone] Comment on above: . Protein (U) [Mass/Vol] 100 mg/dL Abnormal Negative [facility] Work Phone: [phone] Comment on above: . RBC, UA 0-2 0 - 2 /[HPF] [facility] Work Phone: [phone] Comment on above: . Specific Kirwin, Urine 1.015 S [facility] Work Phone: [phone] Comment on above: . Squam Epithel, UA 0-2 3 - 5 /[HPF] [facility] Work Phone: [phone] Comment on above: . Urobilinogen, Urine Normal Normal (0-1) mg/dL [facility] Work Phone: Comment on above: . WBC, UA 0-2 0 - 5 /[HPF] [facility] Work Phone: Comment on above: . Test Performed by [facility] [employer] [facility], [address] [place] [address] [facility] Work Phone: [facility] Work Phone: XR CHEST PORTABLEOrdered By: Louisa Marina on 10-30-2020 Patient Name: SOPHIE HICKS Diagnostic Radiology ACCESSION EXAM DATE/TIME PROCEDURE ORDERING PROVIDER [id number] 10/30/2020 17:09 EDT CR Chest Portable MD MARINA MARK D CPT code 87242 Reason For Exam (CR Chest Portable) sob Report Portable chest 10/30/2020: Clinical Information: Shortness of breath. Findings: A single AP portable view of the chest was obtained at 1705 hours. Comparison was made to the prior study 09/11/2020. The trachea is midline. The heart is not enlarged. No focal areas of consolidation or volume loss are seen. There are no pleural effusions. The pulmonary vasculature does not appear congested. The visualized bony structures are intact. Impression: No acute process. Report Dictated on --- Final --- Dictated: 10/30/2020 5:21 pm Dictating Physician: MD ARTEAGA RISA Signed Date and Time: 10/30/2020 5:22 pm Signed by: MD ARTEAGA RISA Transcribed Date and Time: 10/30/2020 5:21 [facility] Work Phone: Kirk, [facility] Incoming Radiology Results From [facility] - 10/30/2020 5:23 PM EDT Patient Name: SOPHIE HICKS Diagnostic Radiology ACCESSION EXAM DATE/TIME PROCEDURE ORDERING PROVIDER [id number] 10/30/2020 17:09 EDT CR Chest Portable MD MARINA MARK D CPT code 86968 Reason For Exam (CR Chest Portable) sob Report Portable chest 10/30/2020: Clinical Information: Shortness of breath. Findings: A single AP portable view of the chest was obtained at 1705 hours. Comparison was made to the prior study 09/11/2020. The trachea is midline. The heart is not enlarged. No focal areas of consolidation or volume loss are seen. There are no pleural effusions. The pulmonary vasculature does not appear congested. The visualized bony structures are intact. Impression: No acute process. Report Dictated on --- Final --- Dictated: 10/30/2020 5:21 pm Dictating Physician: MD JENNI, ADALID Signed Date and Time: 10/30/2020 5:22 pm Signed by: MD ARTEAGA RISA Transcribed Date and Time: 10/30/2020 5:21 [facility] Work Phone: [facility] Work Phone: Creatinine, serumOrdered By: Andrzej Whittaker on 10-26-2020 Creatinine [Mass/Vol] 1.02 mg/dL 0.52 - 1.25 mg/dL [facility] Work Phone: EGFR IF NonAfrican [place]i 81.2 mL/min >60 [facility] Work Phone: Comment on above: KDIGO guidelines pro vide the following GFR categories: Stage GFR(ml/min/1.73 m2) Terms G1 >=90 Normal or high G2 60-89 Mildly decreased* G3a 45-59 Mildly to moderately decreased G3b 30-44 Moderately to severely decreased G4 15-29 Severely decreased G5 <15 Kidney failure *Relative to young adult level. In the absence of evidence of kidney damage, neither GFR category G1 nor G2 fulfill the criteria for CKD. The CKD-EPI equation is validated in individuals 18 years of age and older. Currently the best equation for estimating glomerular filtration rate (GFR) from serum creatinine in children is the Bedside Oleary equation. It is less accurate in patients with extremes of muscle mass, restriction of dietary protein, ingestion of creatine, extra-renal metabolism of creatinine, or treatment with medications that affect renal tubular creatinine secretion. GFR/1.73 sq M.predicted ramona g blacks MDRD (S/P/Bld) [Vol rate/Area] mL/min/{1.73_m2} >60 mL/min [facility] Work Phone: No Panel InformationOrdered By: Andrzej Whittaker on 10-26-2020 Test Performed by [facility], [address] [place] [address] [facility] Work Phone: [phone] [facility] Work Phone: [phone] Potassium w/ Reflex to Magne siumOrdered By: Andrzej Whittaker on 10-26-2020 Potassium [Moles/Vol] 4.0 mmol/L 3.5 - 5.1 mmol/L [facility] Work Phone: [phone] Basic Metabolic PanelOrdered By: Delia Cornell on 10-19-2020 Anion gap [Moles/Vol] 9 mmol/L 3 - 13 mmol/L [facility] Work Phone: [phone] Calcium [Mass/Vol] 9.0 mg/dL 8.4 - 10. 4 mg/dL [facility] Work Phone: [phone] Chloride [Moles/Vol] 98 mmol/L 98 - 10 7 mmol/L [facility] Work Phone: [phone] CO2 [Moles/Vol] 30 mmol/L 22 - 30 mmol/L [facility] Work Phone: [phone] Creatinine [Mass/Vol] 1.19 mg/dL 0.52 - 1.25 mg/dL [facility] Work Phone: EGFR IF NonAfrican [place]i 67.4 mL/min >60 [facility] Work Phone: Comment on above: KDIGO guidelines pro vide the following GFR categories: Stage GFR(ml/min/1.73 m2) Terms G1 >=90 Normal or high G2 60-89 Mildly decreased* G3a 45-59 Mildly to moderately decreased G3b 30-44 Moderately to severely decreased G4 15-29 Severely decreased G5 <15 Kidney failure *Relative to young adult level. In the absence of evidence of kidney damage, neither GFR category G1 nor G2 fulfill the criteria for CKD. The CKD-EPI equation is validated in individuals 18 years of age and older. Currently the best equation for estimating glomerular filtration rate (GFR) from serum creatinine in children is the Bedside Oleary equation. It is less accurate in patients with extremes of muscle mass, restriction of dietary protein, ingestion of creatine, extra-renal metabolism of creatinine, or treatment with medications that affect renal tubular creatinine secretion. GFR/1.73 sq M.predicted ramona g blacks MDRD (S/P/Bld) [Vol rate/Area] 78.1 mL/min/{1.73_m2} >60 [facility] Work Phone: Glucose [Mass/Vol] 147 mg/dL High 70 - 100 mg/dL [facility] Work Phone: Interpretation and review of laboratory results Abnormal [facility] Work Phone: Potassium [Moles/Vol] 3.1 mmol/L Low 3.5 - 5.1 mmol/L [facility] Work Phone: Sodium [Moles/Vol] 137 mmol/L 135 - 145 mmol/L [facility] Work Phone: Urea nitrogen (BldV) [Mass/Vol] 17 mg/dL 7 - 20 mg/dL [facility] Work Phone: Test Performed by [facility], [address] [place] [address] [facility] Work Phone: [facility] Work Phone: CBC auto differentialOrdered By: Yovani Ansari on 10-01-2020 Absolute Baso # 0.0 10*3/uL 0.0 - 0.2 10*3/uL [facility] Work Phone: Absolute Neut # 3.0 10*3/uL 1.8 - 7.0 10*3/uL [facility] Work Phone: Basophils/100 WBC (Bld) 0.9 % 0.0 - 2.0 % [facility] Work Phone: Eosinophils (Bld) [#/Vol] 0.2 10*3/uL 0. 0 - 0.5 10*3/uL [facility] Work Phone: Eosinophils/100 WBC (Bld) 3.9 % 1. 0 - 6.0 % [facility] Work Phone: Granulocytes/100 WBC (Bld) 57.6 % 4 0.0 - 80.0 % [facility] Work Phone: 1 Hematocrit (Bld) [Volume fraction] 36.4 % Low 40.0 - 52.0 % [facility] Work Phone: Hemoglobin.gastrointestinal spec 1 Ql (Stl) 12.5 g/dL Low 13.0 - 18.0 g/dL [facility] Work Phone: Interpretation and review of laboratory results Abnormal [facility] Work Phone: 1 Lymphocytes (Bld) [#/Vol] 1.5 10*3/uL 1. 0 - 4.3 10*3/uL [facility] Work Phone: 1 Lymphocytes/100 WBC (Bld) 28.0 % 20 .0 - 40.0 % [employer] Phone: MCH (RBC) [Entitic mass] 29.5 pg 26. 0 - 34.0 pg [employer] Phone: MCHC (RBC) [Mass/Vol] 34.5 % 32.0 - 36.0 % [employer] Phone: 1 MCV (RBC) [Entitic vol] 85.7 fL 80.0 - 98.0 fL [employer] Phone: Monocytes (Bld) [#/Vol] 0.5 10*3/uL 0.0 - 0.8 10*3/uL [employer] Phone: Monocytes/100 WBC (Bld) 9.6 % 2.0 - 10.0 % [employer] Phone: 1 Platelet distribution width (Bld) [Ratio] 14.3 % 11.5 - 14.5 % [employer] Phone: Platelet mean volume (Bld) [Entitic vol] 6.4 fL Low 7.4 - 10.4 fL [employer] Phone: Platelets (Bld) [#/Vol] 220 10*3/uL 140 - 440 10*3/uL [facility] Work Phone: RBC (Bld) [#/Vol] 4.25 10*6/uL Low 4.40 - 5.90 10*6/uL [facility] Work Phone: [phone] WBC (Bld) [#/Vol] 5.3 10*3/uL 3.6 - 10.7 10*3/uL [facility] Work Phone: [phone] Test Performed by [employer] [facility], [address] [place], [place] [address] [facility] Work Phone: [facility] Work Phone: [phone] Comprehensive Metabolic Pane l w/ Reflex to MGOrdered By: Yovani Ansari on 10-01-2020 Albumin [Mass/Vol] 3.5 g/dL 3.5 - 5.0 g/dL [facility] Work Phone: [phone] ALP (Bld) [Catalytic activity/Vol] 54 U/L 38 - 126 U/L [facility] Work Phone: [phone] ALT [Catalytic activity/Vol] 29 U/L 0 - 49 U/L [facility] Work Phone: Comment on above: The ALT test is perf ormed by an updated assay method. Please note that the reference intervals have been changed and are now sex specific. Anion gap [Moles/Vol] 6 mmol/L 3 - 13 mmol/L [facility] Work Phone: [phone] AST [Catalytic activity/Vol] 43 U/L 15 - 46 U/L [facility] Work Phone: [phone] Bilirubin [Mass/Vol] 0.5 mg/dL 0.2 - 1 .3 mg/dL [facility] Work Phone: [phone] Calcium [Mass/Vol] 8.8 mg/dL 8.4 - 10. 4 mg/dL [facility] Work Phone: [phone] Chloride [Moles/Vol] 98 mmol/L 98 - 10 7 mmol/L [facility] Work Phone: [phone] CO2 [Moles/Vol] 32 mmol/L High 22 - 30 mmol/L [facility] Work Phone: [phone] Creatinine [Mass/Vol] 1.41 mg/dL High 0.52 - 1.25 mg/dL [facility] Work Phone: [phone] EGFR IF NonAfrican [place]i 54.9 mL/min Abnormal >60 [facility] Work Phone: [phone] Comment on above: KDIGO guidelines pro vide the following GFR categories: Stage GFR(ml/min/1.73 m2) Terms G1 >=90 Normal or high G2 60-89 Mildly decreased* G3a 45-59 Mildly to moderately decreased G3b 30-44 Moderately to severely decreased G4 15-29 Severely decreased G5 <15 Kidney failure *Relative to young adult level. In the absence of evidence of kidney damage, neither GFR category G1 nor G2 fulfill the criteria for CKD. The CKD-EPI equation is validated in individuals 18 years of age and older. Currently the best equation for estimating glomerular filtration rate (GFR) from serum creatinine in children is the Bedside Oleary equation. It is less accurate in patients with extremes of muscle mass, restriction of dietary protein, ingestion of creatine, extra-renal metabolism of creatinine, or treatment with medications that affect renal tubular creatinine secretion. Free PSA/Total PSA [Mass fraction] 6.4 g/dL 6.3 - 8.2 g/dL [facility] Work Phone: [phone] GFR/1.73 sq M.predicted ramona g blacks MDRD (S/P/Bld) [Vol rate/Area] 63.6 mL/min/{1.73_m2} >60 [facility] Work Phone: [phone] Glucose [Mass/Vol] 154 mg/dL High 70 - 100 mg/dL [employer] Phone: Interpretation and review of laboratory results Abnormal [facility] Work Phone: Potassium [Moles/Vol] 3.0 mmol/L Low 3.5 - 5.1 mmol/L [facility] Work Phone: Sodium [Moles/Vol] 136 mmol/L 135 - 145 mmol/L [facility] Work Phone: [phone] Urea nitrogen (BldV) [Mass/Vol] 19 mg/dL 7 - 20 mg/dL [facility] Work Phone: [phone] Test Performed by [facility], [address] [place] [address] [facility] Work Phone: [phone] [facility] Work Phone: EKG 12 LeadOrdered By: Angela eisenberg on 10-01-2020 [facility] Test Date: 2020-09-30 Pat Name: SOPHIE HICKS Department: 2AE Room: 266 Gender: M 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: IRIS : 1965 Requested By: ANGELA JACKSON Order Number: [id number] Reading MD: Abram Carrillo Measurements Intervals [place] Rate: 79 P: 31 IN: 160 QRS: 30 QRSD: 82 T: 69 QT: 380 QTc: 436 Interpretive Statements SINUS RHYTHM Electronically Signed On 10-01-2020 16:55:34 EDT by Abram Carrillo [facility] Work Phone: [phone] Kirk, [facility] Incoming Cardiology Results From [facility] - 10/01/2020 4:56 PM EDT [facility] Test Date: 2020-09-30 Pat Name: SOPHIE HICKS Department: 2AE Room: 266 Gender: M 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: IRIS : 1965 Requested By: ANGELA JACKSON Order Number: [id number] Reading MD: Abram Carrillo Measurements Intervals [place] Rate: 79 P: 31 IN: 160 QRS: 30 QRSD: 82 T: 69 QT: 380 QTc: 436 Interpretive Statements SINUS RHYTHM Electronically Signed On 10-01-2020 16:55:34 EDT by Abram Carrillo [facility] Work Phone: [phone] [facility] Work Phone: [phone] MagnesiumOrdered By: Yovani Ansari on 10-01-2020 Magnesium [Mass/Vol] 2.0 mg/dL 1.6 - 2 .3 mg/dL [facility] Work Phone: [phone] Test Performed by [facility], [address] [place] [id number] [place], [place] [address]A Work Phone: [phone] [facility] Work Phone: [phone] CBC auto differentialOrdered By: Yovani Ansari on 09-30-2020 Absolute Baso # 0.0 10*3/uL 0.0 - 0.2 10*3/uL [facility] Work Phone: Absolute Neut # 1.9 10*3/uL 1.8 - 7.0 10*3/uL [facility] Work Phone: 1 Basophils/100 WBC (Bld) 1.0 % 0.0 - 2.0 % [facility] Work Phone: Eosinophils (Bld) [#/Vol] 0.2 10*3/uL 0. 0 - 0.5 10*3/uL [facility] Work Phone: Eosinophils/100 WBC (Bld) 5.0 % 1. 0 - 6.0 % [facility] Work Phone: 1 Granulocytes/100 WBC (Bld) 48.4 % 4 0.0 - 80.0 % [facility] Work Phone: Hematocrit (Bld) [Volume fraction] 34.5 % Low 40.0 - 52.0 % [facility] Work Phone: Hemoglobin.gastrointestinal spec 1 Ql (Stl) 11.9 g/dL Low 13.0 - 18.0 g/dL [facility] Work Phone: Interpretation and review of laboratory results Abnormal [facility] Work Phone: Lymphocytes (Bld) [#/Vol] 1.4 10*3/uL 1. 0 - 4.3 10*3/uL [facility] Work Phone: Lymphocytes/100 WBC (Bld) 35.5 % 20 .0 - 40.0 % [facility] Work Phone: MCH (RBC) [Entitic mass] 29.6 pg 26. 0 - 34.0 pg [facility] Work Phone: MCHC (RBC) [Mass/Vol] 34.4 % 32.0 - 36.0 % [facility] Work Phone: MCV (RBC) [Entitic vol] 86.0 fL 80.0 - 98.0 fL [facility] Work Phone: Monocytes (Bld) [#/Vol] 0.4 10*3/uL 0.0 - 0.8 10*3/uL [facility] Work Phone: [phone] Monocytes/100 WBC (Bld) 10.1 % High 2.0 - 10.0 % [facility] Work Phone: Platelet distribution width (Bld) [Ratio] 14.3 % 11.5 - 14.5 % [facility] Work Phone: Platelet mean volume (Bld) [Entitic vol] 6.0 fL Low 7.4 - 10.4 fL [facility] Work Phone: Platelets (Bld) [#/Vol] 168 10*3/uL 140 - 440 10*3/uL [facility] Work Phone: RBC (Bld) [#/Vol] 4.01 10*6/uL Low 4.40 - 5.90 10*6/uL [facility] Work Phone: WBC (Bld) [#/Vol] 4.0 10*3/uL 3.6 - 10.7 10*3/uL [facility] Work Phone: Test Performed by [facility], [address] [place] [address] [facility] Work Phone: [facility] Work Phone: Comprehensive Metabolic Pane l w/ Reflex to MGOrdered By: Yovani Ansari on 09-30-2020 Albumin [Mass/Vol] 3.0 g/dL Low 3.5 - 5.0 g/dL [facility] Work Phone: ALP (Bld) [Catalytic activity/Vol] 53 U/L 38 - 126 U/L [facility] Work Phone: ALT [Catalytic activity/Vol] 31 U/L 0 - 49 U/L [facility] Work Phone: Comment on above: The ALT test is perf ormed by an updated assay method. Please note that the reference intervals have been changed and are now sex specific. Anion gap [Moles/Vol] 2 mmol/L Low 3 - 13 mmol/L [facility] Work Phone: [phone] AST [Catalytic activity/Vol] 46 U/L 15 - 46 U/L [facility] Work Phone: Bilirubin [Mass/Vol] 0.4 mg/dL 0.2 - 1 .3 mg/dL [facility] Work Phone: [phone] Calcium [Mass/Vol] 8.4 mg/dL 8.4 - 10. 4 mg/dL [facility] Work Phone: [phone] Chloride [Moles/Vol] 103 mmol/L 98 - 10 7 mmol/L [facility] Work Phone: [phone] CO2 [Moles/Vol] 32 mmol/L High 22 - 30 mmol/L [facility] Work Phone: [phone] Creatinine [Mass/Vol] 1.3 mg/dL High 0.52 - 1.25 mg/dL [facility] Work Phone: [phone] EGFR IF NonAfrican [place]i 60.6 mL/min >60 [facility] Work Phone: [phone] Comment on above: KDIGO guidelines pro vide the following GFR categories: Stage GFR(ml/min/1.73 m2) Terms G1 >=90 Normal or high G2 60-89 Mildly decreased* G3a 45-59 Mildly to moderately decreased G3b 30-44 Moderately to severely decreased G4 15-29 Severely decreased G5 <15 Kidney failure *Relative to young adult level. In the absence of evidence of kidney damage, neither GFR category G1 nor G2 fulfill the criteria for CKD. The CKD-EPI equation is validated in individuals 18 years of age and older. Currently the best equation for estimating glomerular filtration rate (GFR) from serum creatinine in children is the Bedside Oleary equation. It is less accurate in patients with extremes of muscle mass, restriction of dietary protein, ingestion of creatine, extra-renal metabolism of creatinine, or treatment with medications that affect renal tubular creatinine secretion. Free PSA/Total PSA [Mass fraction] 5.9 g/dL Low 6.3 - 8.2 g/dL [facility] Work Phone: [phone] GFR/1.73 sq M.predicted ramona g blacks MDRD (S/P/Bld) [Vol rate/Area] 70.2 mL/min/{1.73_m2} >60 [facility] Work Phone: [phone] Glucose [Mass/Vol] 154 mg/dL High 70 - 100 mg/dL [facility] Work Phone: [phone] Interpretation and review of laboratory results Abnormal [facility] Work Phone: [phone] Potassium [Moles/Vol] 3.2 mmol/L Low 3.5 - 5.1 mmol/L [facility] Work Phone: [phone] Sodium [Moles/Vol] 138 mmol/L 135 - 145 mmol/L [facility] Work Phone: [phone] Urea nitrogen (BldV) [Mass/Vol] 15 mg/dL 7 - 20 mg/dL [facility] Work Phone: [phone] Test Performed by [facility], [address] [place] [address] [facility] Work Phone: [phone] [facility] Work Phone: [phone] Culture, UrineOrdered By: Donna Welch on 09-30-2020 Bacteria identified Cx Nom (U) Normal urogenital nisha present. [facility] Work Phone: [phone] Test Performed by [facility], [address] [place] [address] [facility] Work Phone: [phone] [facility] Work Phone: [phone] EKG 12 Lead - Chest PainOrde red By: Julianne Welch on 09-30-2020 [facility] Test Date: 2020-09-29 Pat Name: SOPHIE HICKS Department: 01 Room: 266 Gender: M 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: [id number] : 1965 Requested By: JULIANNE WELCH Order Number: [id number] Reading MD: Perez Adrian Measurements Intervals [place] Rate: 89 P: IN: QRS: 16 QRSD: 84 T: 107 QT: 380 QTc: 463 Interpretive Statements ATRIAL FIBRILLATION, V-RATE 88- 91 NONSPECIFIC T ABNORMALITIES, LATERAL LEADS Compared to ECG 09/11/2020 10:29:16 T-wave abnormality now present Sinus rhythm no longer present ST (T wave) deviation no longer present Electronically Signed On 09-30-2020 13:14:30 EDT by Perez Adrian [facility] Work Phone: Kirk, [facility] Incoming Cardiology Results From [facility] - 09/30/2020 1:15 PM EDT [facility] Test Date: 2020-09-29 Pat Name: SOPHIE HICKS Department: 01 Room: 266 Gender: M 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: [id number] : 1965 Requested By: JULIANNE WELCH Order Number: [id number] Reading MD: Perez Adrian Measurements Intervals [place] Rate: 89 P: IN: QRS: 16 QRSD: 84 T: 107 QT: 380 QTc: 463 Interpretive Statements ATRIAL FIBRILLATION, V-RATE 88- 91 NONSPECIFIC T ABNORMALITIES, LATERAL LEADS Compared to ECG 09/11/2020 10:29:16 T-wave abnormality now present Sinus rhythm no longer present ST (T wave) deviation no longer present Electronically Signed On 09-30-2020 13:14:30 EDT by Perez Adrian [facility] Work Phone: [phone] [facility] Work Phone: [phone] MagnesiumOrdered By: Yovani Ansari on 09-30-2020 Magnesium [Mass/Vol] 2.0 mg/dL 1.6 - 2 .3 mg/dL [facility] Work Phone: [phone] Test Performed by [facility], [address] [place], [place] [address] [facility] Work Phone: [phone] [facility] Work Phone: [phone] Add On Lab TestOrdered By: Chirag Welch on 09-29-2020 Add On Accepted [facility] Work Phone: [phone] Comment on above: Specimen available & acceptable for analysis. Test Performed by [facility], [address] [place], [place] [address] [facility] Work Phone: [phone] [facility] Work Phone: [phone] Add On Accepted [facility] Work Phone: [phone] Comment on above: Specimen available & acceptable for analysis. Test Performed by [facility], [address] [place], [place] [address] [facility] Work Phone: [phone] [facility] Work Phone: [phone] Add On Accepted [facility] Work Phone: [phone] Comment on above: Specimen available & acceptable for analysis. Test Performed by [facility], [address] [place], [place] [address] [facility] Work Phone: [phone] [facility] Work Phone: [phone] Basic Metabolic PanelOrdered By: Julianne Welch on 09-29-2020 Anion gap [Moles/Vol] 6 mmol/L 3 - 13 mmol/L [facility] Work Phone: [phone] Calcium [Mass/Vol] 8.7 mg/dL 8.4 - 10. 4 mg/dL [facility] Work Phone: [phone] Chloride [Moles/Vol] 104 mmol/L 98 - 10 7 mmol/L [facility] Work Phone: [phone] CO2 [Moles/Vol] 27 mmol/L 22 - 30 mmol/L [facility] Work Phone: [phone] Creatinine [Mass/Vol] 1.22 mg/dL 0.52 - 1.25 mg/dL [facility] Work Phone: [phone] EGFR IF NonAfrican [place]i 65.4 mL/min >60 [facility] Work Phone: Comment on above: KDIGO guidelines pro vide the following GFR categories: Stage GFR(ml/min/1.73 m2) Terms G1 >=90 Normal or high G2 60-89 Mildly decreased* G3a 45-59 Mildly to moderately decreased G3b 30-44 Moderately to severely decreased G4 15-29 Severely decreased G5 <15 Kidney failure *Relative to young adult level. In the absence of evidence of kidney damage, neither GFR category G1 nor G2 fulfill the criteria for CKD. The CKD-EPI equation is validated in individuals 18 years of age and older. Currently the best equation for estimating glomerular filtration rate (GFR) from serum creatinine in children is the Bedside Oleary equation. It is less accurate in patients with extremes of muscle mass, restriction of dietary protein, ingestion of creatine, extra-renal metabolism of creatinine, or treatment with medications that affect renal tubular creatinine secretion. GFR/1.73 sq M.predicted ramona g blacks MDRD (S/P/Bld) [Vol rate/Area] 75.8 mL/min/{1.73_m2} >60 [facility] Work Phone: [phone] Glucose [Mass/Vol] 214 mg/dL High 70 - 100 mg/dL [facility] Work Phone: [phone] Potassium [Moles/Vol] 3.7 mmol/L 3.5 - 5.1 mmol/L [facility] Work Phone: [phone] Sodium [Moles/Vol] 136 mmol/L 135 - 145 mmol/L [facility] Work Phone: Urea nitrogen (BldV) [Mass/Vol] 16 mg/dL 7 - 20 mg/dL [facility] Work Phone: [phone] Natriuretic PeptideOrd ered By: Julianne Welch on 09-29-2020 Natriuretic peptide B (Bld) [Mass/Vol] 53 pg/mL 0 - 125 pg/mL [facility] Work Phone: [phone] Test Performed by [facility], [address] [place], [place] [id number] [facility] Work Phone: [phone] [facility] Work Phone: [phone] CT Abdomen Pelvis Wo Contras tOrdered By: Julianne Welch on 09-29-2020 Patient Name: SOPHIE HICKS Computed Tomography ACCESSION EXAM DATE/TIME PROCEDURE ORDERING PROVIDER [id number] 09/29/2020 03:[address] Abdomen/Pelvis (No [id number] -KEKE, JULIANNE PO, No IV) CPT code 88754 Reason For Exam (CT Abdomen/Pelvis (No PO, No IV)) Patient with RUQ pain and rt CVA tenderness allergic to IV contrast Report CT ABDOMEN AND PELVIS WITHOUT CONTRAST CLINICAL INDICATION: Right upper quadrant pain Serial axial CT images of the abdomen and pelvis were acquired without intravenous contrast. Oral contrast was not given for this study. COMPARISON: 08/09/2020 FINDINGS: There is no hydronephrosis, hydroureter, or perinephric stranding bilaterally. No renal or ureteral stones are identified. The urinary bladder is empty, limiting evaluation. The prostate does not appear enlarged. The liver, gallbladder, spleen, pancreas, and adrenal glands are grossly unremarkable in appearance on this noncontrast examination. No retroperitoneal or pelvic lymphadenopathy is seen. The abdominal aorta is normal in caliber. The large and small bowel is unremarkable in appearance, without evidence of thickening or dilatation. The appendix appears normal. No free fluid is seen within the abdomen or pelvis. There is no free air under the diaphragm. The visualized portion of the lung bases are clear. No lytic or blastic lesions are seen on the bone windows. IMPRESSION: No renal or ureteral stones are seen. No hydronephrosis, hydroureter, or perinephric stranding is seen bilaterally. No acute findings are seen on this examination to explain the patient's pain. Computed Tomography Report Report Dictated on --- Final --- Dictating Physician: MD SEGURA JONATHAN R Signed Date and Time: 09/29/2020 3:48 am Signed by: MD SEGURA JONATHAN R Transcribed Date and Time: 09/29/2020 3:49 [facility] Work Phone: [facility], [facility] Incoming Radiology Results From [facility] - 09/29/2020 3:49 AM EDT [id number] ACCESSION EXAM DATE/TIME PROCEDURE ORDERING PROVIDER [id number] 09/29/2020 03:[address] Abdomen/Pelvis (No [id number] -KIBE, JULIANNE PO, No IV) CPT code 63900 Reason For Exam (CT Abdomen/Pelvis (No PO, No IV)) Patient with RUQ pain and rt CVA tenderness allergic to IV contrast Report CT ABDOMEN AND PELVIS WITHOUT CONTRAST CLINICAL INDICATION: Right upper quadrant pain Serial axial CT images of the abdomen and pelvis were acquired without intravenous contrast. Oral contrast was not given for this study. COMPARISON: 08/09/2020 FINDINGS: There is no hydronephrosis, hydroureter, or perinephric stranding bilaterally. No renal or ureteral stones are identified. The urinary bladder is empty, limiting evaluation. The prostate does not appear enlarged. The liver, gallbladder, spleen, pancreas, and adrenal glands are grossly unremarkable in appearance on this noncontrast examination. No retroperitoneal or pelvic lymphadenopathy is seen. The abdominal aorta is normal in caliber. The large and small bowel is unremarkable in appearance, without evidence of thickening or dilatation. The appendix appears normal. No free fluid is seen within the abdomen or pelvis. There is no free air under the diaphragm. The visualized portion of the lung bases are clear. No lytic or blastic lesions are seen on the bone windows. IMPRESSION: No renal or ureteral stones are seen. No hydronephrosis, hydroureter, or perinephric stranding is seen bilaterally. No acute findings are seen on this examination to explain the patient's pain. Computed Tomography Report Report Dictated on --- Final --- Dictating Physician: MD SEGURA JONATHAN R Signed Date and Time: 09/29/2020 3:48 am Signed by: MD SEGURA JONATHAN R Transcribed Date and Time: 09/29/2020 3:49 [facility] Work Phone: 1 [facility] Work Phone: Creatinine, Random UrineOrde red By: Garcia Medrano on 09-29-2020 Creatinine (U) [Mass/Vol] 87.3 mg/dL No Range [facility] Work Phone: 1 Hemogram (CBC) w/Auto DiffOr dered By: Julianne Welch on 09-29-2020 Absolute Baso # 0.1 10*3/uL 0.0 - 0.2 10*3/uL [facility] Work Phone: 1 Absolute Neut # 3.3 10*3/uL 1.8 - 7.0 10*3/uL [facility] Work Phone: 1 Basophils/100 WBC (Bld) 1.2 % 0.0 - 2.0 % [facility] Work Phone: Eosinophils (Bld) [#/Vol] 0.1 10*3/uL 0. 0 - 0.5 10*3/uL [facility] Work Phone: 1 22 Eosinophils/100 WBC (Bld) 2.7 % 1. 0 - 6.0 % [facility] Work Phone: Granulocytes/100 WBC (Bld) 60.6 % 4 0.0 - 80.0 % [facility] Work Phone: 1 Hematocrit (Bld) [Volume fraction] 36.6 % Low 40.0 - 52.0 % [facility] Work Phone: [phone] Hemoglobin.gastrointestinal spec 1 Ql (Stl) 12.8 g/dL Low 13.0 - 18.0 g/dL [facility] Work Phone: 1 Interpretation and review of laboratory results Abnormal [facility] Work Phone: Lymphocytes (Bld) [#/Vol] 1.2 10*3/uL 1. 0 - 4.3 10*3/uL [facility] Work Phone: 1 Lymphocytes/100 WBC (Bld) 22.7 % 20 .0 - 40.0 % [facility] Work Phone: 1 MCH (RBC) [Entitic mass] 29.9 pg 26. 0 - 34.0 pg [facility] Work Phone: MCHC (RBC) [Mass/Vol] 34.9 % 32.0 - 36.0 % [facility] Work Phone: MCV (RBC) [Entitic vol] 85.7 fL 80.0 - 98.0 fL [facility] Work Phone: 1 Monocytes (Bld) [#/Vol] 0.7 10*3/uL 0.0 - 0.8 10*3/uL [facility] Work Phone: 1 Monocytes/100 WBC (Bld) 12.8 % High 2.0 - 10.0 % [facility] Work Phone: Platelet distribution width (Bld) [Ratio] 14.5 % 11.5 - 14.5 % [facility] Phone: Platelet mean volume (Bld) [Entitic vol] 6.4 fL Low 7.4 - 10.4 fL [facility] Work Phone: 1 Platelets (Bld) [#/Vol] 181 10*3/uL 140 - 440 10*3/uL [facility] Work Phone: RBC (Bld) [#/Vol] 4.28 10*6/uL Low 4.40 - 5.90 10*6/uL [facility] Work Phone: 22 WBC (Bld) [#/Vol] 5.5 10*3/uL 3.6 - 10.7 10*3/uL [facility] Work Phone: 1 Test Performed by [facility], [address] [place], [place] [address] [facility] Work Phone: [facility] Work Phone: Hepatic Function PanelOrdere d By: Julianne Welch on 09-29-2020 Albumin [Mass/Vol] 3.5 g/dL 3.5 - 5.0 g/dL [facility] Work Phone: ALP (Bld) [Catalytic activity/Vol] 58 U/L 38 - 126 U/L [facility] Work Phone: ALT [Catalytic activity/Vol] 30 U/L 0 - 49 U/L [facility] Work Phone: Comment on above: The ALT test is perf ormed by an updated assay method. Please note that the reference intervals have been changed and are now sex specific. AST [Catalytic activity/Vol] 48 U/L High 15 - 46 U/L [facility] Work Phone: 1 Bilirubin [Mass/Vol] 0.8 mg/dL 0.2 - 1 .3 mg/dL [facility] Work Phone: Bilirubin.indirect [Mass/Vol] 0.0 mg/dL 0.0 - 0.3 mg/dL [facility] Work Phone: Free PSA/Total PSA [Mass fraction] 6.6 g/dL 6.3 - 8.2 g/dL [facility] Work Phone: Lactic Acid, PlasmaOrdered B y: Julianne Welch on 09-29-2020 Lactate [Moles/Vol] 1.8 mmol/L 0.7 - 2. 0 mmol/L [facility] Work Phone: Test Performed by [facility], [address] [place], [place] [address] [facility] Work Phone: [facility] Work Phone: 1 LipaseOrdered By: Julianne moe on 09-29-2020 Lipase [Catalytic activity/Vol] 102 U/L 23 - 300 U/L [facility] Work Phone: 1 MagnesiumOrdered By: Julianne Welch on 09-29-2020 Magnesium [Mass/Vol] 2.1 mg/dL 1.6 - 2 .3 mg/dL [facility] Work Phone: 1 No Panel InformationOrdered By: Garcia Medrano on 09-29-2020 Interpretation and review of laboratory results Abnormal [facility] Work Phone: 1 Test Performed by [facility], [address] [place] [address] [facility] Work Phone: 1 [facility] Work Phone: 1 No Panel InformationOrdered By: Julianne Welch on 09-29-2020 Interpretation and review of laboratory results Abnormal [facility] Work Phone: 1 Test Performed by [facility], [address] [place] [address] [facility] Work Phone: 1 [facility] Work Phone: Protein, urine, randomOrdere d By: Garcia Medrano on 09-29-2020 Protein (U) [Mass/Vol] 108 mg/dL High No Range [facility] Work Phone: Sodium, Urine, RandomOrdered By: Garcia Medrano on 09-29-2020 Sodium (U) [Moles/Vol] 99 mmol/L High 30 - 90 mmol/L [facility] Work Phone: TroponinOrdered By: Julianne raphael on 09-29-2020 Troponin I.cardiac [Mass/Vol] ng/mL 0.000 - 0.034 ng/mL [facility] Work Phone: 1 Comment on above: . Test Performed by [facility], [address] [place] [address] [facility] Work Phone: 1 [facility] Work Phone: UrinalysisOrdered By: Julianne Welch on 09-29-2020 Appearance (U) Clear Clear NA [facility] Work Phone: Comment on above: . Bacteria, UA Few Abnormal Negative /[HPF] [facility] Work Phone: [phone] Comment on above: . Bilirubin Urine Negative Negative mg/dL [facility] Work Phone: [phone] Comment on above: . Color (U) Yellow Lt. Yellow NA [facility] Work Phone: [phone] Comment on above: . Glucose, Ur 50 mg/dL Normal (<70) [facility] Work Phone: [phone] Comment on above: . Granular Casts, UA 0-2 Abnormal Negative /[LPF] [facility] Work Phone: [phone] Comment on above: . Hyaline Casts, UA 0-2 Abnormal Negative /[LPF] [facility] Work Phone: [phone] Comment on above: . Interpretation and review of laboratory results Abnormal [facility] Work Phone: [phone] Ketones Ql (U) Negative Negative mg/dL [facility] Work Phone: 1 Comment on above: . LEUKOCYTES, UA Negative Negative Caprice/uL [facility] Work Phone: [phone] Comment on above: . Mucous Threads Few Negative /[LPF] [facility] Work Phone: [phone] Comment on above: . Nitrite, Urine Negative Negative NA [facility] Work Phone: [phone] Comment on above: . Occult Blood,Urine 0.1 mg/dL Abnormal Negative [facility] Work Phone: [phone] Comment on above: . pH (U) 6.0 [pH] [facility] Work Phone: 1 Comment on above: . Protein (U) [Mass/Vol] 600 mg/dL Abnormal Negative [facility] Work Phone: [phone] Comment on above: . RBC, UA 0-2 0 - 2 /[HPF] [facility] Work Phone: [phone] Comment on above: . Specific [place]win, Urine 1.028 S [facility] Work Phone: [phone] Comment on above: . Squam Epithel, UA 0-2 3 - 5 /[HPF] [facility] Work Phone: [phone] Comment on above: . Urobilinogen, Urine 2 mg/dL Abnormal Normal (0-1) [facility] Work Phone: Comment on above: . WBC, UA 6-10 Abnormal 0 - 5 /[HPF] [facility] Work Phone: Comment on above: . Test Performed by [facility], [address] [place], [place] [address] [facility] Work Phone: [phone] [facility] Work Phone: Basic Metabolic Panel w/ Ref branden to MGOrdered By: Kirstin Sánchez on 09-13-2020 Anion gap [Moles/Vol] 8 mmol/L 3 - 13 mmol/L [facility] Work Phone: [phone] Calcium [Mass/Vol] 8.7 mg/dL 8.4 - 10. 4 mg/dL [facility] Work Phone: [phone] Chloride [Moles/Vol] 94 mmol/L Low 98 - 10 7 mmol/L [facility] Work Phone: [phone] CO2 [Moles/Vol] 34 mmol/L High 22 - 30 mmol/L [facility] Work Phone: [phone] Creatinine [Mass/Vol] 1.56 mg/dL High 0.52 - 1.25 mg/dL [facility] Work Phone: [phone] EGFR IF NonAfrican [place]i 48.6 mL/min Abnormal >60 [facility] Work Phone: Comment on above: KDIGO guidelines pro vide the following GFR categories: Stage GFR(ml/min/1.73 m2) Terms G1 >=90 Normal or high G2 60-89 Mildly decreased* G3a 45-59 Mildly to moderately decreased G3b 30-44 Moderately to severely decreased G4 15-29 Severely decreased G5 <15 Kidney failure *Relative to young adult level. In the absence of evidence of kidney damage, neither GFR category G1 nor G2 fulfill the criteria for CKD. The CKD-EPI equation is validated in individuals 18 years of age and older. Currently the best equation for estimating glomerular filtration rate (GFR) from serum creatinine in children is the Bedside Oleary equation. It is less accurate in patients with extremes of muscle mass, restriction of dietary protein, ingestion of creatine, extra-renal metabolism of creatinine, or treatment with medications that affect renal tubular creatinine secretion. GFR/1.73 sq M.predicted ramona g blacks MDRD (S/P/Bld) [Vol rate/Area] 56.3 mL/min/{1.73_m2} Abnormal >60 [facility] Work Phone: Glucose [Mass/Vol] 148 mg/dL High 70 - 100 mg/dL [facility] Work Phone: Interpretation and review of laboratory results Abnormal [facility] Work Phone: Potassium [Moles/Vol] 3.6 mmol/L 3.5 - 5.1 mmol/L [facility] Work Phone: Sodium [Moles/Vol] 135 mmol/L 135 - 145 mmol/L [facility] Work Phone: 1 Urea nitrogen (BldV) [Mass/Vol] 36 mg/dL High 7 - 20 mg/dL [facility] Work Phone: Test Performed by [facility], [address] [place] [address] [facility] Work Phone: [facility] Work Phone: CBC auto differentialOrdered By: Kirstin Sánchez on 09-13-2020 Absolute Baso # 0.0 10*3/uL 0.0 - 0.2 10*3/uL [facility] Work Phone: Absolute Neut # 9.1 10*3/uL High 1.8 - 7.0 10*3/uL [facility] Work Phone: Basophils/100 WBC (Bld) 0.4 % 0.0 - 2.0 % [facility] Work Phone: Eosinophils (Bld) [#/Vol] 0.1 10*3/uL 0. 0 - 0.5 10*3/uL [facility] Work Phone: Eosinophils/100 WBC (Bld) 0.8 % Low 1. 0 - 6.0 % [facility] Work Phone: Granulocytes/100 WBC (Bld) 77.4 % 4 0.0 - 80.0 % [facility] Work Phone: Hematocrit (Bld) [Volume fraction] 39.1 % Low 40.0 - 52.0 % [facility] Work Phone: [phone] Hemoglobin.gastrointestinal spec 1 Ql (Stl) 13.6 g/dL 13.0 - 18.0 g/dL [facility] Work Phone: 1 Interpretation and review of laboratory results Abnormal [facility] Work Phone: Lymphocytes (Bld) [#/Vol] 1.7 10*3/uL 1. 0 - 4.3 10*3/uL [facility] Work Phone: Lymphocytes/100 WBC (Bld) 14.5 % Low 20 .0 - 40.0 % [facility] Work Phone: MCH (RBC) [Entitic mass] 30.0 pg 26. 0 - 34.0 pg [facility] Work Phone: MCHC (RBC) [Mass/Vol] 34.7 % 32.0 - 36.0 % [facility] Phone: MCV (RBC) [Entitic vol] 86.4 fL 80.0 - 98.0 fL [facility] Work Phone: Monocytes (Bld) [#/Vol] 0.8 10*3/uL 0.0 - 0.8 10*3/uL [facility] Work Phone: 1 Monocytes/100 WBC (Bld) 6.9 % 2.0 - 10.0 % [facility] Phone: 1 Platelet distribution width (Bld) [Ratio] 14.4 % 11.5 - 14.5 % [facility] Phone: Platelet mean volume (Bld) [Entitic vol] 6.1 fL Low 7.4 - 10.4 fL [facility] Work Phone: Platelets (Bld) [#/Vol] 228 10*3/uL 140 - 440 10*3/uL [facility] Work Phone: RBC (Bld) [#/Vol] 4.53 10*6/uL 4.40 - 5.90 10*6/uL [facility] Work Phone: WBC (Bld) [#/Vol] 11.8 10*3/uL High 3.6 - 10.7 10*3/uL [facility] Work Phone: [phone] Test Performed by [facility] [employer] [facility], [address], [place], [place] [address] [facility] Work Phone: [phone] [facility] Work Phone: [phone] CT HEAD WO CONTRASTOrdered B y: Desiyair Liiff on 09-13-2020 Patient Name: SOPHIE HICKS Computed Tomography ACCESSION EXAM DATE/TIME PROCEDURE ORDERING PROVIDER [id number] 09/12/2020 16:[address] Head or Brain w/o [id number] -GONZALO, UMAR Contrast CPT code 54177 Reason For Exam (CT Head or Brain w/o Contrast) rule out cranial abnormalities, has perioral numbness Report CT HEAD WITHOUT CONTRAST: INDICATION: Facial numbness COMPARISON: None. Unenhanced CT images of the head from skull base to vertex were obtained. The images are reviewed in the axial, sagittal and coronal planes. The ventricles and sulci are within normal limits for the patient's age. There is no evidence of hemorrhage, mass or large acute infarct. There is no mass or significant shift of the midline structures. There are no extraaxial or posterior fossa masses or fluid collections. The hypothalamic and parasellar regions are unremarkable. The paranasal sinuses are clear. IMPRESSION: Negative CT examination of the brain. Report Dictated on --- Final --- Dictating Physician: DO DE LA GARZA ALFRED Signed Date and Time: 09/13/2020 9:19 am Signed by: DO DE LA GRAZA ALFRED Transcribed Date and Time: 09/13/2020 9:20 [facility] Work Phone: Kirk, [facility] Incoming Radiology Results From [facility] - 09/13/2020 9:20 AM EDT Patient Name: SOPHIE HICKS Computed Tomography ACCESSION EXAM DATE/TIME PROCEDURE ORDERING PROVIDER [id number] 09/12/2020 16:[address] Head or Brain w/o [id number] -GONZALO, UMAR Contrast CPT code 97680 Reason For Exam (CT Head or Brain w/o Contrast) rule out cranial abnormalities, has perioral numbness Report CT HEAD WITHOUT CONTRAST: INDICATION: Facial numbness COMPARISON: None. Unenhanced CT images of the head from skull base to vertex were obtained. The images are reviewed in the axial, sagittal and coronal planes. The ventricles and sulci are within normal limits for the patient's age. There is no evidence of hemorrhage, mass or large acute infarct. There is no mass or significant shift of the midline structures. There are no extraaxial or posterior fossa masses or fluid collections. The hypothalamic and parasellar regions are unremarkable. The paranasal sinuses are clear. IMPRESSION: Negative CT examination of the brain. Report Dictated on --- Final --- Dictating Physician: DO DE LA GARZA ALFRED Signed Date and Time: 09/13/2020 9:19 am Signed by: DO DE LA GARZA ALFRED Transcribed Date and Time: 09/13/2020 9:20 [facility] Work Phone: [facility] Work Phone: CBC auto differentialOrdered By: Kirstin Sánchez on 09-12-2020 Absolute Baso # 0.1 10*3/uL 0.0 - 0.2 10*3/uL [facility] Work Phone: Absolute Neut # 8.2 10*3/uL High 1.8 - 7.0 10*3/uL [facility] Work Phone: 22 Basophils/100 WBC (Bld) 0.5 % 0.0 - 2.0 % [facility] Work Phone: 22 Eosinophils (Bld) [#/Vol] 0.1 10*3/uL 0. 0 - 0.5 10*3/uL [facility] Work Phone: 22 Eosinophils/100 WBC (Bld) 1.0 % 1. 0 - 6.0 % [facility] Work Phone: 22 Granulocytes/100 WBC (Bld) 72.0 % 4 0.0 - 80.0 % [facility] Work Phone: Hematocrit (Bld) [Volume fraction] 39.5 % Low 40.0 - 52.0 % [facility] Work Phone: 1 22 Hemoglobin.gastrointestinal spec 1 Ql (Stl) 13.5 g/dL 13.0 - 18.0 g/dL [facility] Work Phone: 1 Interpretation and review of laboratory results Abnormal [facility] Work Phone: 1 Lymphocytes (Bld) [#/Vol] 2.1 10*3/uL 1. 0 - 4.3 10*3/uL [facility] Work Phone: 1 Lymphocytes/100 WBC (Bld) 18.9 % Low 20 .0 - 40.0 % [facility] Work Phone: 1 MCH (RBC) [Entitic mass] 29.3 pg 26. 0 - 34.0 pg [facility] Work Phone: MCHC (RBC) [Mass/Vol] 34.3 % 32.0 - 36.0 % [facility] Phone: MCV (RBC) [Entitic vol] 85.4 fL 80.0 - 98.0 fL [facility] Work Phone: 1 Monocytes (Bld) [#/Vol] 0.9 10*3/uL High 0.0 - 0.8 10*3/uL [facility] Work Phone: 1 Monocytes/100 WBC (Bld) 7.6 % 2.0 - 10.0 % [facility] Phone: 1 Platelet distribution width (Bld) [Ratio] 14.5 % 11.5 - 14.5 % [facility] Phone: Platelet mean volume (Bld) [Entitic vol] 6.0 fL Low 7.4 - 10.4 fL [facility] Work Phone: Platelets (Bld) [#/Vol] 226 10*3/uL 140 - 440 10*3/uL [facility] Work Phone: RBC (Bld) [#/Vol] 4.62 10*6/uL 4.40 - 5.90 10*6/uL [facility] Work Phone: WBC (Bld) [#/Vol] 11.4 10*3/uL High 3.6 - 10.7 10*3/uL [facility] Work Phone: [phone] Test Performed by [facility], [address], [place], [place] [address] [facility] Work Phone: 1 [facility] Work Phone: CREATININE, RANDOM URINEOrde red By: Brijesh Quintanilla on 09-12-2020 Creatinine (U) [Mass/Vol] 78.6 mg/dL No Range [facility] Work Phone: 1 Chloride, Random UrineOrdere d By: Brijesh Quintanilla on 09-12-2020 Chloride 55 mmol/L 18 - 209 mmol/L [facility] Work Phone: 1 Comprehensive Metabolic Pane l w/ Reflex to MGOrdered By: Kirstin Sánchez on 09-12-2020 Albumin [Mass/Vol] 3.8 g/dL 3.5 - 5.0 g/dL [facility] Work Phone: ALP (Bld) [Catalytic activity/Vol] 64 U/L 38 - 126 U/L [facility] Work Phone: ALT [Catalytic activity/Vol] 21 U/L 0 - 49 U/L [facility] Work Phone: Comment on above: The ALT test is perf ormed by an updated assay method. Please note that the reference intervals have been changed and are now sex specific. Anion gap [Moles/Vol] 7 mmol/L 3 - 13 mmol/L [facility] Work Phone: AST [Catalytic activity/Vol] 24 U/L 15 - 46 U/L [facility] Work Phone: Bilirubin [Mass/Vol] 0.5 mg/dL 0.2 - 1 .3 mg/dL [facility] Work Phone: [phone] Calcium [Mass/Vol] 8.6 mg/dL 8.4 - 10. 4 mg/dL [facility] Work Phone: [phone] Chloride [Moles/Vol] 94 mmol/L Low 98 - 10 7 mmol/L [facility] Work Phone: [phone] CO2 [Moles/Vol] 29 mmol/L 22 - 30 mmol/L [facility] Work Phone: Creatinine [Mass/Vol] 1.49 mg/dL High 0.52 - 1.25 mg/dL [facility] Work Phone: [phone] EGFR IF NonAfrican [place]i 51.4 mL/min Abnormal >60 [facility] Work Phone: [phone] Comment on above: KDIGO guidelines pro vide the following GFR categories: Stage GFR(ml/min/1.73 m2) Terms G1 >=90 Normal or high G2 60-89 Mildly decreased* G3a 45-59 Mildly to moderately decreased G3b 30-44 Moderately to severely decreased G4 15-29 Severely decreased G5 <15 Kidney failure *Relative to young adult level. In the absence of evidence of kidney damage, neither GFR category G1 nor G2 fulfill the criteria for CKD. The CKD-EPI equation is validated in individuals 18 years of age and older. Currently the best equation for estimating glomerular filtration rate (GFR) from serum creatinine in children is the Bedside Oleary equation. It is less accurate in patients with extremes of muscle mass, restriction of dietary protein, ingestion of creatine, extra-renal metabolism of creatinine, or treatment with medications that affect renal tubular creatinine secretion. Free PSA/Total PSA [Mass fraction] 6.8 g/dL 6.3 - 8.2 g/dL [facility] Work Phone: [phone] GFR/1.73 sq M.predicted ramona g blacks MDRD (S/P/Bld) [Vol rate/Area] 59.6 mL/min/{1.73_m2} Abnormal >60 [facility] Work Phone: [phone] Glucose [Mass/Vol] 171 mg/dL High 70 - 100 mg/dL [facility] Work Phone: [phone] Interpretation and review of laboratory results Abnormal [facility] Work Phone: [phone] Potassium [Moles/Vol] 3.0 mmol/L Low 3.5 - 5.1 mmol/L [facility] Work Phone: [phone] Sodium [Moles/Vol] 130 mmol/L Low 135 - 145 mmol/L [facility] Work Phone: [phone] Urea nitrogen (BldV) [Mass/Vol] 33 mg/dL High 7 - 20 mg/dL [facility] Work Phone: Test Performed by [facility], 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: RE : 1965 Requested By: KAMAR FAROOQ Order Number: [id number] Reading MD: Jaki Riddle Measurements Intervals [place] Rate: 86 P: 32 IN: 144 QRS: 27 QRSD: 94 T: 77 QT: 352 QTc: 421 Interpretive Statements SINUS RHYTHM MINIMAL ST ELEVATION, ANTERIOR LEADS Compared to ECG 08/25/2020 18:52:04 ST (T wave) deviation now present Electronically Signed On 09-12-2020 7:53:52 EDT by Jaki [place] Work Phone: [phone] Kirk, [facility] Incoming Cardiology Results From [facility] - 09/12/2020 7:54 AM EDT [facility] Test Date: 2020-09-11 Pat Name: SOPHIE HICKS Department: 2[facility]ED Room: 460 Gender: M 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: RE : 1965 Requested By: KAMAR FAROOQ Order Number: [id number] Reading MD: Jaki Riddle Measurements Intervals [place] Rate: 86 P: 32 IN: 144 QRS: 27 QRSD: 94 T: 77 QT: 352 QTc: 421 Interpretive Statements SINUS RHYTHM MINIMAL ST ELEVATION, ANTERIOR LEADS Compared to ECG 08/25/2020 18:52:04 ST (T wave) deviation now present Electronically Signed On 09-12-2020 7:53:52 EDT by Jaki W[place] Work Phone: [phone] [facility] Work Phone: [phone] FOLATEOrdered By: Kirstin scales on 09-12-2020 Folate 3.2 ng/mL 2.8 - 20.0 ng/mL [facility] Work Phone: MRI LUMBAR SPINE WO CONTRAST Ordered By: Kirstin Sánchez on 09-12-2020 [id number] ACCESSION EXAM DATE/TIME PROCEDURE ORDERING PROVIDER [id number] 09/12/2020 15:45 EDT MRI Spine Lumbar w/o [id number] -KIRSTIN SÁNCHEZ Contrast CPT code 86896 Reason For Exam (MRI Spine Lumbar w/o Contrast) back spasms, history of cervicalgia, having LE weakness and inability to ambulate Report Indication: Shortness of breath. Back spasms. MRI lumbar spine without contrast. T1 and T2-weighted sagittal and axial, and inversion recovery sagittal images of the lumbar spine performed. Sagittal images show normal height of the lumbar vertebral bodies without anterior or posterior listhesis. Disc spaces are maintained. No concerning areas of marrow edema. Conus medullaris terminates at the T12 level. T12-L1: Disc space is maintained. No canal or foraminal stenosis. L1-L2: Disc space is maintained. No canal or foraminal stenosis. L2-L3: Disc space is maintained. No canal or foraminal stenosis. L3-L4: Mild diffuse disc bulge. Mild facet hypertrophy. Small amount of fluid in the facet joints. Mild bilateral foraminal stenosis. L4-L5: Diffuse disc bulge. Left paracentral and foraminal disc protrusion. Protruding disc contacts the left L5 nerve root. Mild posterior displacement of the left L5 nerve root. Protruding disc lies adjacent to the emerging left L4 nerve root. Facet hypertrophy. Mild endplate hypertrophy. Fluid in the facet joints. Moderate canal stenosis. Moderate left foraminal stenosis. L5-S1: Disc space is maintained. No canal or foraminal stenosis. IMPRESSION: Degenerative disc, endplate and facet changes at L4-L5. Broad-based left paracentral and foraminal disc protrusion at L4-L5. Mild posterior displacement of the left L5 nerve root in the left lateral recess. Protruding disc lies adjacent to the emerging left L4 nerve root. Magnetic Resonance Imaging Report Report Dictated on --- Final --- Dictating Physician: MD FAULKNER LAURA Signed Date and Time: 09/12/2020 4:33 pm Signed by: MD FAULKNER LAURA Transcribed Date and Time: 09/12/2020 4:34 [facility] Work Phone: [facility], [facility] In[facility] Rad[facility] Results From [facility] - 09/12/2020 4:34 PM EDT Patient Name: SOPHIE HICKS Magnetic Resonance Imaging ACCESSION EXAM DATE/TIME PROCEDURE ORDERING PROVIDER [id number] 09/12/2020 15:45 EDT MRI Spine Lumbar w/o [id number] -KIRSTIN SÁNCHEZ Contrast CPT code 28922 Reason For Exam (MRI Spine Lumbar w/o Contrast) back spasms, history of cervicalgia, having LE weakness and inability to ambulate Report Indication: Shortness of breath. Back spasms. MRI lumbar spine without contrast. T1 and T2-weighted sagittal and axial, and inversion recovery sagittal images of the lumbar spine performed. Sagittal images show normal height of the lumbar vertebral bodies without anterior or posterior listhesis. Disc spaces are maintained. No concerning areas of marrow edema. Conus medullaris terminates at the T12 level. T12-L1: Disc space is maintained. No canal or foraminal stenosis. L1-L2: Disc space is maintained. No canal or foraminal stenosis. L2-L3: Disc space is maintained. No canal or foraminal stenosis. L3-L4: Mild diffuse disc bulge. Mild facet hypertrophy. Small amount of fluid in the facet joints. Mild bilateral foraminal stenosis. L4-L5: Diffuse disc bulge. Left paracentral and foraminal disc protrusion. Protruding disc contacts the left L5 nerve root. Mild posterior displacement of the left L5 nerve root. Protruding disc lies adjacent to the emerging left L4 nerve root. Facet hypertrophy. Mild endplate hypertrophy. Fluid in the facet joints. Moderate canal stenosis. Moderate left foraminal stenosis. L5-S1: Disc space is maintained. No canal or foraminal stenosis. IMPRESSION: Degenerative disc, endplate and facet changes at L4-L5. Broad-based left paracentral and foraminal disc protrusion at L4-L5. Mild posterior displacement of the left L5 nerve root in the left lateral recess. Protruding disc lies adjacent to the emerging left L4 nerve root. Magnetic Resonance Imaging Report Report Dictated on --- Final --- Dictating Physician: MD FAULKNER LAURA Signed Date and Time: 09/12/2020 4:33 pm Signed by: MD FAULKNER LAURA Transcribed Date and Time: 09/12/2020 4:34 [facility] Work Phone: [facility] Work Phone: MRI THORACIC SPINE WO CONTRA STOrdered By: Kirstin Sánchez on 09-12-2020 Patient Name: SOPHIE HICKS [facility]#: [id number] Magnetic Resonance Imaging ACCESSION EXAM DATE/TIME PROCEDURE ORDERING PROVIDER [id number] 09/12/2020 16:05 EDT MRI Spine Thoracic w/o [id number] -KIRSTIN SÁNCHEZ Contrast CPT code 92741 Reason For Exam (MRI Spine Thoracic w/o Contrast) back spasms, history of cervicalgia, having LE weakness and inability to ambulate Report Indication: Back spasms. MRI of the thoracic spine without contrast. T1 and T2-weighted sagittal and axial, and inversion recovery sagittal images of the thoracic spine performed. Thoracic vertebral body height is maintained. No anterior or posterior listhesis. No concerning areas of marrow edema. Posterior disc protrusion at T7-T8. Flattening of the ventral aspect of the thecal sac. Protruding disc abuts the the ventral aspect of the thoracic cord in the midline and to the right of midline. No definite cord flattening. No other disc protrusions in the thoracic spine. Degenerative disc and endplate changes at C6-C7. Posterior disc protrusion at C6-C7 causes flattening of the ventral aspect of the thecal sac without definite cervical cord impingement. Images degraded by patient body habitus. IMPRESSION: Degenerative disc protrusion at T7-T8. Protruding disc abuts the ventral aspect of the thoracic cord in the midline and to the right of midline. No definite thoracic cord flattening. No signal abnormalities of the thoracic cord. Report Dictated on --- Final --- Dictating Physician: MD FAULKNER LAURA Signed Date and Time: 09/12/2020 4:42 pm Signed by: MD FAULKNER LAURA Transcribed Date and Time: 09/12/2020 4:43 [facility] Work Phone: [facility], [facility] Incoming Radiology Results From [facility] - 09/12/2020 4:43 PM EDT [id number] Imaging ACCESSION EXAM DATE/TIME PROCEDURE ORDERING PROVIDER [id number] 09/12/2020 16:05 EDT MRI Spine Thoracic w/o [id number] FERNANDEZ Contrast CPT code 83375 Reason For Exam (MRI Spine Thoracic w/o Contrast) back spasms, history of cervicalgia, having LE weakness and inability to ambulate Report Indication: Back spasms. MRI of the thoracic spine without contrast. T1 and T2-weighted sagittal and axial, and inversion recovery sagittal images of the thoracic spine performed. Thoracic vertebral body height is maintained. No anterior or posterior listhesis. No concerning areas of marrow edema. Posterior disc protrusion at T7-T8. Flattening of the ventral aspect of the thecal sac. Protruding disc abuts the the ventral aspect of the thoracic cord in the midline and to the right of midline. No definite cord flattening. No other disc protrusions in the thoracic spine. Degenerative disc and endplate changes at C6-C7. Posterior disc protrusion at C6-C7 causes flattening of the ventral aspect of the thecal sac without definite cervical cord impingement. Images degraded by patient body habitus. IMPRESSION: Degenerative disc protrusion at T7-T8. Protruding disc abuts the ventral aspect of the thoracic cord in the midline and to the right of midline. No definite thoracic cord flattening. No signal abnormalities of the thoracic cord. Report Dictated on --- Final --- Dictating Physician: MD FAULKNER LAURA Signed Date and Time: 09/12/2020 4:42 pm Signed by: MD FAULKNER LAURA Transcribed Date and Time: 09/12/2020 4:43 [facility] Work Phone: [phone] [facility] Work Phone: [phone] MagnesiumOrdered By: Kirstin valenzuela on 09-12-2020 Magnesium [Mass/Vol] 1.7 mg/dL 1.6 - 2 .3 mg/dL [facility] Work Phone: [phone] Test Performed by [facility] [employer] [facility], [address] [place] [address] [facility] Work Phone: 1 [facility] Work Phone: 1 No Panel InformationOrdered By: Kirstin Sánchez on 09-12-2020 Test Performed by [facility], [address] [place] [address] [facility] Work Phone: 1 [facility] Work Phone: 1 No Panel InformationOrdered By: Brijesh Quintanilla on 09-12-2020 Test Performed by [facility] [employer] [facility], [address] [place] [address] [facility] Work Phone: 1 [facility] Work Phone: Osmolality, UrineOrdered By: Brijesh Quintanilla on 09-12-2020 Osmolality, Ur 342 mosm/kg 300 - 1000 mosm/kg [facility] Work Phone: 1 [facility], [address] [place] [address] [facility] Work Phone: 1 [facility] Work Phone: 1 PROTEIN, URINE, RANDOMOrdere d By: Brijesh Quintanilla on 09-12-2020 Interpretation and review of laboratory results Abnormal [facility] Work Phone: Protein (U) [Mass/Vol] 126 mg/dL High No Range [facility] Work Phone: Sodium, Urine, RandomOrdered By: Brijesh Quintanilla on 09-12-2020 Sodium (U) [Moles/Vol] 57 mmol/L 30 - 90 mmol/L [facility] Work Phone: 1 TroponinOrdered By: Eduard Das on 09-12-2020 Troponin I.cardiac [Mass/Vol] ng/mL 0.000 - 0.034 ng/mL [facility] Work Phone: Comment on above: . Test Per[facility] by [facility], [address] [place] [address] [facility] Work Phone: 1 [facility] Work Phone: Vitamin [id number] By: Kirstin Sánchez on 09-12-2020 Cobalamin (Vitamin B12) [Mass/Vol] 377 pg/mL 239 - 931 pg/mL [facility] Work Phone: 1 Add On Lab TestOrdered By: Susie Farooq on 09-11-2020 Add On Accepted [facility] Work Phone: 1 Comment on above: Specimen available & acceptable for analysis. Test Performed by [facility], [address] [place] [address] Str. [place] [address] [facility] Work Phone: [facility] Work Phone: 1 Brain Natriuretic PeptideOrd ered By: Kamar Farooq on 09-11-2020 Interpretation and review of laboratory results Abnormal [facility] Work Phone: Natriuretic peptide B (Bld) [Mass/Vol] 147 pg/mL High 0 - 125 pg/mL [facility] Work Phone: 1 Test Performed by [facility], [facility] [address] [place] [address] [facility] Work Phone: [facility] Work Phone: 1 Comprehensive Metabolic Pane lOrdered By: Kamar Farooq on 09-11-2020 Albumin [Mass/Vol] 3.9 g/dL 3.5 - 5.0 g/dL [facility] Work Phone: ALP (Bld) [Catalytic activity/Vol] 80 U/L 38 - 126 U/L [facility] Work Phone: ALT [Catalytic activity/Vol] 24 U/L 0 - 49 U/L [facility] Work Phone: Comment on above: The ALT test is perf ormed by an updated assay method. Please note that the reference intervals have been changed and are now sex specific. Anion gap [Moles/Vol] 9 mmol/L 3 - 13 mmol/L [facility] Work Phone: AST [Catalytic activity/Vol] 25 U/L 15 - 46 U/L [facility] Work Phone: Bilirubin [Mass/Vol] 0.4 mg/dL 0.2 - 1 .3 mg/dL [facility] Work Phone: [phone] Calcium [Mass/Vol] 8.8 mg/dL 8.4 - 10. 4 mg/dL [facility] Work Phone: [phone] Chloride [Moles/Vol] 95 mmol/L Low 98 - 10 7 mmol/L [facility] Work Phone: [phone] CO2 [Moles/Vol] 30 mmol/L 22 - 30 mmol/L [facility] Work Phone: [phone] Creatinine [Mass/Vol] 1.45 mg/dL High 0.52 - 1.25 mg/dL [facility] Work Phone: [phone] EGFR IF NonAfrican O[place]i 53.1 mL/min Abnormal >60 [facility] Work Phone: [phone] Comment on above: KDIGO guidelines pro vide the following GFR categories: Stage GFR(ml/min/1.73 m2) Terms G1 >=90 Normal or high G2 60-89 Mildly decreased* G3a 45-59 Mildly to moderately decreased G3b 30-44 Moderately to severely decreased G4 15-29 Severely decreased G5 <15 Kidney failure *Relative to young adult level. In the absence of evidence of kidney damage, neither GFR category G1 nor G2 fulfill the criteria for CKD. The CKD-EPI equation is validated in individuals 18 years of age and older. Currently the best equation for estimating glomerular filtration rate (GFR) from serum creatinine in children is the Bedside Oleary equation. It is less accurate in patients with extremes of muscle mass, restriction of dietary protein, ingestion of creatine, extra-renal metabolism of creatinine, or treatment with medications that affect renal tubular creatinine secretion. Free PSA/Total PSA [Mass fraction] 6.9 g/dL 6.3 - 8.2 g/dL [facility] Work Phone: [phone] GFR/1.73 sq M.predicted ramona g blacks MDRD (S/P/Bld) [Vol rate/Area] 61.6 mL/min/{1.73_m2} >60 [facility] Work Phone: [phone] Glucose [Mass/Vol] 297 mg/dL High 70 - 100 mg/dL [facility] Work Phone: [phone] Interpretation and review of laboratory results Abnormal [facility] Work Phone: [phone] Potassium [Moles/Vol] 4.0 mmol/L 3.5 - 5.1 mmol/L [facility] Work Phone: [phone] Sodium [Moles/Vol] 134 mmol/L Low 135 - 145 mmol/L [facility] Work Phone: [phone] Urea nitrogen (BldV) [Mass/Vol] 33 mg/dL High 7 - 20 mg/dL [facility] Work Phone: [phone] Hemogram (CBC) w/Auto DiffOr dered By: Kamar Farooq on 09-11-2020 Absolute Baso # 0.0 10*3/uL 0.0 - 0.2 10*3/uL [facility] Work Phone: [phone] Absolute Neut # 9.2 10*3/uL High 1.8 - 7.0 10*3/uL [facility] Work Phone: [phone] Basophils/100 WBC (Bld) 0.4 % 0.0 - 2.0 % [facility] Work Phone: [phone] Eosinophils (Bld) [#/Vol] 0.1 10*3/uL 0. 0 - 0.5 10*3/uL [facility] Work Phone: [phone] Eosinophils/100 WBC (Bld) 0.5 % Low 1. 0 - 6.0 % [facility] Work Phone: [phone] Granulocytes/100 WBC (Bld) 88.6 % High 4 0.0 - 80.0 % [facility] Work Phone: [phone] Hematocrit (Bld) [Volume fraction] 39.8 % Low 40.0 - 52.0 % [facility] Work Phone: [phone] Hemoglobin.gastrointestinal spec 1 Ql (Stl) 14.1 g/dL 13.0 - 18.0 g/dL [facility] Work Phone: [phone] Interpretation and review of laboratory results Abnormal [facility] Work Phone: [phone] Lymphocytes (Bld) [#/Vol] 0.8 10*3/uL Low 1. 0 - 4.3 10*3/uL [facility] Work Phone: [phone] Lymphocytes/100 WBC (Bld) 7.4 % Low 20 .0 - 40.0 % [facility] Work Phone: [phone] MCH (RBC) [Entitic mass] 30.2 pg 26. 0 - 34.0 pg [facility] Work Phone: MCHC (RBC) [Mass/Vol] 35.3 % 32.0 - 36.0 % [facility] Work Phone: 1 MCV (RBC) [Entitic vol] 85.7 fL 80.0 - 98.0 fL [facility] Work Phone: Monocytes (Bld) [#/Vol] 0.3 10*3/uL 0.0 - 0.8 10*3/uL [facility] Work Phone: 1 Monocytes/100 WBC (Bld) 3.1 % 2.0 - 10.0 % [facility] Work Phone: Platelet distribution width (Bld) [Ratio] 14.3 % 11.5 - 14.5 % [facility] Work Phone: Platelet mean volume (Bld) [Entitic vol] 6.3 fL Low 7.4 - 10.4 fL [facility] Work Phone: Platelets (Bld) [#/Vol] 222 10*3/uL 140 - 440 10*3/uL [facility] Work Phone: RBC (Bld) [#/Vol] 4.65 10*6/uL 4.40 - 5.90 10*6/uL [facility] Work Phone: WBC (Bld) [#/Vol] 10.4 10*3/uL 3.6 - 10.7 10*3/uL [facility] Work Phone: Test Performed by [employer], [address] [place] [id number] [place], [place] [address] Work Phone: [facility] Work Phone: LipaseOrdered By: Kamar lopez on 09-11-2020 Lipase [Catalytic activity/Vol] 163 U/L 23 - 300 U/L [facility] Work Phone: MagnesiumOrdered By: Kamarviridiana Farooq on 09-11-2020 Magnesium [Mass/Vol] 1.7 mg/dL 1.6 - 2 .3 mg/dL [facility] Work Phone: [phone] No Panel InformationOrdered By: Kamar Farooq on 09-11-2020 Test Performed by [facility], [address] [place] [address] [facility] Work Phone: 1 [facility] Work Phone: 1 Test Performed by [facility], [address] [place] [address] [facility] Work Phone: [facility] Work Phone: 1 POCT GlucoseOrdered By: Loc Farooq on 09-11-2020 Glucose [Mass/Vol] 262 mg/dL High 70 - 100 mg/dL [facility] Work Phone: 1 Comment on above: Test performed by gl ucose meter. Results may be 10%-15% lower than serum/plasma values. (CLIA ID [id number]) Interpretation and review of laboratory results Abnormal [facility] Work Phone: 1 Test Performed by [facility], [address] [place] [address] [facility] Work Phone: 1 [facility] Work Phone: 1 POCT VenousOrdered By: Jed Farooq on 09-11-2020 Base Excess, Jake 2.8 mmol/L -3.0 - 3.0 mmol/L [facility] Work Phone: 1 HCO3 (Bld) [Moles/Vol] 27.2 mmol/L High 23.0 - 27.0 mmol/L [facility] Work Phone: Interpretation and review of laboratory results Abnormal [facility] Work Phone: 1 Oxygen saturation in Blood 92.6 % High 6 0.0 - 85.0 % [facility] Work Phone: pCO2, Jake 40.2 mm[Hg] 40.0 - 55.0 mm[Hg] [facility] Work Phone: pH, Jake 7.438 High [facility] Work Phone: pO2, Jake 63.4 mm[Hg] High 30.0 - 50.0 mm[Hg] [facility] Work Phone: [phone] TC02 (Calc), Jake 28.4 mmol/L High 24.0 - 28.0 mmol/L [facility] Work Phone: [phone] Comment on above: Performed by [facility] ID : [id number] [employer] [place] Troponin [id number] By: Jed Farooq on 09-11-2020 Troponin I.cardiac [Mass/Vol] ng/mL 0.000 - 0.034 ng/mL [facility] Work Phone: [phone] Comment on above: . UrinalysisOrdered By: Kamar Farooq on 09-11-2020 Appearance (U) Clear Clear NA [facility] Work Phone: [phone] Comment on above: . Bacteria, UA Few Abnormal Negative /[HPF] [facility] Work Phone: [phone] Comment on above: . Bilirubin Urine Negative Negative mg/dL [facility] Work Phone: [phone] Comment on above: . Color (U) Colorless Lt. Yellow NA [facility] Work Phone: [phone] Comment on above: . Glucose, Ur Normal Normal (<70) mg/dL [facility] Work Phone: [phone] Comment on above: . Hyaline Casts, UA 3-5 Abnormal Negative /[LPF] [facility] Work Phone: [phone] Comment on above: . Interpretation and review of laboratory results Abnormal [facility] Work Phone: [phone] Ketones Ql (U) Negative Negative mg/dL [facility] Work Phone: [phone] Comment on above: . LEUKOCYTES, UA 25 Abnormal Negative Caprice/uL [facility] Work Phone: [phone] Comment on above: . Mucous Threads Few Negative /[LPF] [facility] Work Phone: [phone] Comment on above: . Nitrite, Urine Negative Negative NA [facility] Work Phone: [phone] Comment on above: . Occult Blood,Urine Negative Negative mg/dL [facility] Work Phone: [phone] Comment on above: . pH (U) 6.0 [pH] [facility] Work Phone: [phone] Comment on above: . Protein (U) [Mass/Vol] 100 mg/dL Abnormal Negative [facility] Work Phone: [phone] Comment on above: . RBC, UA 0-2 0 - 2 /[HPF] [facility] Work Phone: [phone] Comment on above: . Specific Kirwin, Urine 1.009 S [facility] Work Phone: [phone] Comment on above: . Squam Epithel, UA 0-2 3 - 5 /[HPF] [facility] Work Phone: [phone] Comment on above: . Urobilinogen, Urine Normal Normal (0-1) mg/dL [facility] Work Phone: [phone] Comment on above: . WBC, UA 6-10 Abnormal 0 - 5 /[HPF] [facility] Work Phone: [phone] Comment on above: . Test Performed by [facility], [address] [place] [address] [place], [place] [id number] [place] [address] Work Phone: [phone] [facility] Work Phone: [phone] XR CHEST PORTABLEOrdered By: Kamar Farooq on 09-11-2020 Patient Name: SOPHIE HICKS Diagnostic Radiology ACCESSION EXAM DATE/TIME PROCEDURE ORDERING PROVIDER [id number] 09/11/2020 10:33 EDT CR Chest Portable [id number] KAMAR BLOOM CPT code 67872 Reason For Exam (CR Chest Portable) shortness of breath Report EXAM TYPE: RADIOLOGIC EXAMINATION, CHEST, SINGLE VIEW FRONTAL (CXR SINGLE VIEW) EXAM DATE AND TIME: 09/11/2020 10:33 AM EDT INDICATION: Respiratory distress COMPARISON: 07/23/2020 TECHNIQUE: A single frontal view of the thorax was obtained and reviewed. Special views: None. IMPRESSION: 1. Lines/Tubes/Devices /Hardware: Monitoring leads. Please confirm position/function of devices/catheters clinically. 2. Lungs: No consolidation or pulmonary edema. 3. Pleura: No significant effusion. No significant pneumothorax. 4. Heart and mediastinum: Limited due to technique. 5. Upper abdomen: No acute process seen. 6. Thorax:No acute bony process Report Dictated on --- Final --- Dictating Physician: MD DYE JOHN Signed Date and Time: 09/11/2020 11:03 am Signed by: MD DYE JOHN Transcribed Date and Time: 09/11/2020 11:04 [facility] Work Phone: [facility], [facility] In[facility] Results From [facility] - 09/11/2020 11:04 AM EDT Patient Name: SOPHIE HICKS Diagnostic Radiology ACCESSION EXAM DATE/TIME PROCEDURE ORDERING PROVIDER [id number] 09/11/2020 10:33 EDT CR Chest Portable [id number] KAMAR BLOOM CPT code 25495 Reason For Exam (CR Chest Portable) shortness of breath Report EXAM TYPE: RADIOLOGIC EXAMINATION, CHEST, SINGLE VIEW FRONTAL (CXR SINGLE VIEW) EXAM DATE AND TIME: 09/11/2020 10:33 AM EDT INDICATION: Respiratory distress COMPARISON: 07/23/2020 TECHNIQUE: A single frontal view of the thorax was obtained and reviewed. Special views: None. IMPRESSION: 1. Lines/Tubes/Devices /Hardware: Monitoring leads. Please confirm position/function of devices/catheters clinically. 2. Lungs: No consolidation or pulmonary edema. 3. Pleura: No significant effusion. No significant pneumothorax. 4. Heart and mediastinum: Limited due to technique. 5. Upper abdomen: No acute process seen. 6. Thorax:No acute bony process Report Dictated on --- Final --- Dictating Physician: MD DYE JOHN Signed Date and Time: 09/11/2020 11:03 am Signed by: MD DYE JOHN Transcribed Date and Time: 09/11/2020 11:04 [facility] Work Phone: [facility] Work Phone: XR LUMBAR SPINE (2-3 VIEWS)O rdered By: Kamar Farooq on 09-11-2020 Patient Name: SOPHIE HICKS Diagnostic Radiology ACCESSION EXAM DATE/TIME PROCEDURE ORDERING PROVIDER [id number] 09/11/2020 17:05 EDT CR Spine Lumbosacral 2 [id number] -POLCE, KAMAR or 3 Views CPT code 61651 Reason For Exam (CR Spine Lumbosacral 2 or 3 Views) low back pain Report HISTORY: Back pain AP and lateral views of the lumbar spine were obtained. A coned-down lateral image of the sacrum was also obtained. Comparisons available: None. FINDINGS: There are 5 nonrib bearing lumbar type vertebral bodies. Vertebral body height and alignment is maintained without evidence of acute fracture or subluxation. There is only mild degenerative changes noted. They are in the thoracic spine at T9, T10, and T11. Minor facet hypertrophy is noted in the lower lumbar spine. The bowel gas pattern is nonobstructed. There are few small bowel loops which are slightly distended with gas and have a stacked appearance. Recommend correlation for any abdominal/GI symptoms. IMPRESSION: No acute osseous abnormality. Minimal degenerative change. Report Dictated on --- Final --- Dictating Physician: MD RODRIGUEZ TOM A Signed Date and Time: 09/11/2020 5:36 pm Signed by: MD RODRIGUEZ TOM A Transcribed Date and Time: 09/11/2020 5:37 [facility] Work Phone: [facility], [facility] Incoming Radiology Results From [facility] - 09/11/2020 5:37 PM EDT Patient Name: SOPHIE HICKS Diagnostic Radiology ACCESSION EXAM DATE/TIME PROCEDURE ORDERING PROVIDER [id number] 09/11/2020 17:05 EDT CR Spine Lumbosacral 2 [id number] -POLCE, KAMAR or 3 Views CPT code 72489 Reason For Exam (CR Spine Lumbosacral 2 or 3 Views) low back pain Report HISTORY: Back pain AP and lateral views of the lumbar spine were obtained. A coned-down lateral image of the sacrum was also obtained. Comparisons available: None. FINDINGS: There are 5 nonrib bearing lumbar type vertebral bodies. Vertebral body height and alignment is maintained without evidence of acute fracture or subluxation. There is only mild degenerative changes noted. They are in the thoracic spine at T9, T10, and T11. Minor facet hypertrophy is noted in the lower lumbar spine. The bowel gas pattern is nonobstructed. There are few small bowel loops which are slightly distended with gas and have a stacked appearance. Recommend correlation for any abdominal/GI symptoms. IMPRESSION: No acute osseous abnormality. Minimal degenerative change. Report Dictated on --- Final --- Dictating Physician: MD RODRIGUEZ TOM A Signed Date and Time: 09/11/2020 5:36 pm Signed by: MD RODRIGUEZ TOM A Transcribed Date and Time: 09/11/2020 5:37 [facility] Work Phone: [facility] Work Phone: XR Spine Thoracic 3 VWOrdere d By: Kamar Farooq on 09-11-2020 Patient Name: SOPHIE HICKS Diagnostic Radiology ACCESSION EXAM DATE/TIME PROCEDURE ORDERING PROVIDER [id number] 09/11/2020 17:05 EDT CR Spine Thoracic 3 [id number] -KAMAR FAROOQ Views CPT code 13546 Reason For Exam (CR Spine Thoracic 3 Views) mid back pain Report HISTORY: Back pain AP, lateral, and swimmers views of the thoracic spine were obtained. Comparisons available: None. FINDINGS: The thoracic vertebra demonstrate normal height and alignment, without evidence of acute fracture or subluxation. There is mild degenerative endplate spurring in the mid and lower thoracic spine. Posterior laminectomy and fusion changes are noted in the cervical spine. IMPRESSION: No acute fracture or subluxation seen. Mild degenerative endplate changes. Report Dictated on --- Final --- Dictating Physician: MD MARINA KERISTEN L Signed Date and Time: 09/11/2020 5:23 pm Signed by: MD MARINA KERISTEN L Transcribed Date and Time: 09/11/2020 5:30 [facility] Work Phone: [facility], [facility] Incoming Radiology Results From [facility] - 09/11/2020 5:30 PM EDT Patient Name: SOPHIE HICKS Diagnostic Radiology ACCESSION EXAM DATE/TIME PROCEDURE ORDERING PROVIDER [id number] 09/11/2020 17:05 EDT CR Spine Thoracic 3 [id number] -KAMAR FAROOQ Views CPT code 67188 Reason For Exam (CR Spine Thoracic 3 Views) mid back pain Report HISTORY: Back pain AP, lateral, and swimmers views of the thoracic spine were obtained. Comparisons available: None. FINDINGS: The thoracic vertebra demonstrate normal height and alignment, without evidence of acute fracture or subluxation. There is mild degenerative endplate spurring in the mid and lower thoracic spine. Posterior laminectomy and fusion changes are noted in the cervical spine. IMPRESSION: No acute fracture or subluxation seen. Mild degenerative endplate changes. Report Dictated on --- Final --- Dictating Physician: MD MARINA KERISTEN L Signed Date and Time: 09/11/2020 5:23 pm Signed by: MD MARINA KERISTEN L Transcribed Date and Time: 09/11/2020 5:30 [facility] Work Phone: [phone] [facility] Work Phone: [phone] Basic Metabolic Panel w/ Ref branden to MGOrdered By: Salome Kim on 08-26-2020 Anion gap [Moles/Vol] 7 mmol/L 3 - 13 mmol/L [facility] Work Phone: Calcium [Mass/Vol] 8.6 mg/dL 8.4 - 10. 4 mg/dL [facility] Work Phone: Chloride [Moles/Vol] 97 mmol/L Low 98 - 10 7 mmol/L [facility] Work Phone: CO2 [Moles/Vol] 31 mmol/L High 22 - 30 mmol/L [facility] Work Phone: [phone] Creatinine [Mass/Vol] 1.69 mg/dL High 0.52 - 1.25 mg/dL [facility] Work Phone: [phone] EGFR IF NonAfrican [place]i 44.1 mL/min Abnormal >60 [facility] Work Phone: [phone] Comment on above: KDIGO guidelines pro vide the following GFR categories: Stage GFR(ml/min/1.73 m2) Terms G1 >=90 Normal or high G2 60-89 Mildly decreased* G3a 45-59 Mildly to moderately decreased G3b 30-44 Moderately to severely decreased G4 15-29 Severely decreased G5 <15 Kidney failure *Relative to young adult level. In the absence of evidence of kidney damage, neither GFR category G1 nor G2 fulfill the criteria for CKD. The CKD-EPI equation is validated in individuals 18 years of age and older. Currently the best equation for estimating glomerular filtration rate (GFR) from serum creatinine in children is the Bedside Oleary equation. It is less accurate in patients with extremes of muscle mass, restriction of dietary protein, ingestion of creatine, extra-renal metabolism of creatinine, or treatment with medications that affect renal tubular creatinine secretion. GFR/1.73 sq M.predicted ramona g blacks MDRD (S/P/Bld) [Vol rate/Area] 51.2 mL/min/{1.73_m2} Abnormal >60 [facility] Work Phone: [phone] Glucose [Mass/Vol] 154 mg/dL High 70 - 100 mg/dL [facility] Work Phone: [phone] Potassium [Moles/Vol] 3.3 mmol/L Low 3.5 - 5.1 mmol/L [facility] Work Phone: Sodium [Moles/Vol] 136 mmol/L 135 - 145 mmol/L [facility] Work Phone: [phone] Urea nitrogen (BldV) [Mass/Vol] 38 mg/dL High 7 - 20 mg/dL [facility] Work Phone: [phone] CBC auto differentialOrdered By: Salome Kim on 08-26-2020 Absolute Baso # 0.1 10*3/uL 0.0 - 0.2 10*3/uL [facility] Work Phone: [phone] Absolute Neut # 8.8 10*3/uL High 1.8 - 7.0 10*3/uL [facility] Work Phone: [phone] Basophils/100 WBC (Bld) 0.9 % 0.0 - 2.0 % [facility] Work Phone: [phone] Eosinophils (Bld) [#/Vol] 0.1 10*3/uL 0. 0 - 0.5 10*3/uL [facility] Work Phone: [phone] Eosinophils/100 WBC (Bld) 1.0 % 1. 0 - 6.0 % [facility] Work Phone: [phone] 22 Granulocytes/100 WBC (Bld) 72.4 % 4 0.0 - 80.0 % [facility] Work Phone: [phone] Hematocrit (Bld) [Volume fraction] 41.0 % 40.0 - 52.0 % [facility] Work Phone: [phone] 22 Hemoglobin.gastrointestinal spec 1 Ql (Stl) 14.1 g/dL 13.0 - 18.0 g/dL [facility] Work Phone: [phone] Lymphocytes (Bld) [#/Vol] 2.0 10*3/uL 1. 0 - 4.3 10*3/uL [facility] Work Phone: 1 22 Lymphocytes/100 WBC (Bld) 16.6 % Low 20 .0 - 40.0 % [facility] Work Phone: MCH (RBC) [Entitic mass] 29.7 pg 26. 0 - 34.0 pg [facility] Work Phone: MCHC (RBC) [Mass/Vol] 34.3 % 32.0 - 36.0 % [facility] Work Phone: 1 MCV (RBC) [Entitic vol] 86.6 fL 80.0 - 98.0 fL [facility] Work Phone: Monocytes (Bld) [#/Vol] 1.1 10*3/uL High 0.0 - 0.8 10*3/uL [facility] Work Phone: 1 22 Monocytes/100 WBC (Bld) 9.1 % 2.0 - 10.0 % [facility] Work Phone: [phone] Platelet distribution width (Bld) [Ratio] 14.9 % High 11.5 - 14.5 % [facility] Work Phone: Platelet mean volume (Bld) [Entitic vol] 6.2 fL Low 7.4 - 10.4 fL [facility] Work Phone: Platelets (Bld) [#/Vol] 216 10*3/uL 140 - 440 10*3/uL [facility] Work Phone: 1 RBC (Bld) [#/Vol] 4.73 10*6/uL 4.40 - 5.90 10*6/uL [facility] Work Phone: 1 WBC (Bld) [#/Vol] 12.1 10*3/uL High 3.6 - 10.7 10*3/uL [facility] Work Phone: 1 MagnesiumOrdered By: Salome Kim on 08-26-2020 Magnesium [Mass/Vol] 2.2 mg/dL 1.6 - 2 .3 mg/dL [facility] Work Phone: 1 Test Performed by [facility], [address] [place], [place] [address]A Work Phone: 1 [facility] Work Phone: No Panel InformationOrdered By: Salome Kim on 08-26-2020 Interpretation and review of laboratory results Abnormal [facility] Work Phone: Test Performed by [facility], [address] [place], [place] [address]A Work Phone: [facility] Work Phone: [phone] POCT GlucoseOrdered By: Patria Rodriguez on 08-26-2020 Glucose [Mass/Vol] 125 mg/dL High 70 - 100 mg/dL [facility] Work Phone: Comment on above: Test performed by gl ucose meter. Results may be 10%-15% lower than serum/plasma values. (CLIA ID [id number]) Interpretation and review of laboratory results Abnormal [facility] Work Phone: 1 Test Performed by [facility], [address] [place] [address] [address] Work Phone: [facility] Work Phone: Basic Metabolic PanelOrdered By: Jessica Sharp on 08-25-2020 Anion gap [Moles/Vol] 10 mmol/L 3 - 13 mmol/L [facility] Work Phone: 1 Calcium [Mass/Vol] 8.8 mg/dL 8.4 - 10. 4 mg/dL [facility] Work Phone: [phone] Chloride [Moles/Vol] 95 mmol/L Low 98 - 10 7 mmol/L [facility] Work Phone: CO2 [Moles/Vol] 27 mmol/L 22 - 30 mmol/L [facility] Work Phone: [phone] Creatinine [Mass/Vol] 1.96 mg/dL High 0.52 - 1.25 mg/dL [facility] Work Phone: [phone] IF NonAfrican [place]i 36.9 mL/min Abnormal >60 [facility] Work Phone: [phone] Comment on above: KDIGO guidelines pro vide the following GFR categories: Stage GFR(ml/min/1.73 m2) Terms G1 >=90 Normal or high G2 60-89 Mildly decreased* G3a 45-59 Mildly to moderately decreased G3b 30-44 Moderately to severely decreased G4 15-29 Severely decreased G5 <15 Kidney failure *Relative to young adult level. In the absence of evidence of kidney damage, neither GFR category G1 nor G2 fulfill the criteria for CKD. The CKD-EPI equation is validated in individuals 18 years of age and older. Currently the best equation for estimating glomerular filtration rate (GFR) from serum creatinine in children is the Bedside Oleary equation. It is less accurate in patients with extremes of muscle mass, restriction of dietary protein, ingestion of creatine, extra-renal metabolism of creatinine, or treatment with medications that affect renal tubular creatinine secretion. GFR/1.73 sq M.predicted ramona g blacks MDRD (S/P/Bld) [Vol rate/Area] 42.8 mL/min/{1.73_m2} Abnormal >60 [facility] Work Phone: [phone] Glucose [Mass/Vol] 296 mg/dL High 70 - 100 mg/dL [facility] Work Phone: [phone] Interpretation and review of laboratory results Abnormal [facility] Work Phone: [phone] Potassium [Moles/Vol] 3.9 mmol/L 3.5 - 5.1 mmol/L [facility] Work Phone: [phone] Sodium [Moles/Vol] 132 mmol/L Low 135 - 145 mmol/L [facility] Work Phone: [phone] Urea nitrogen (BldV) [Mass/Vol] 38 mg/dL High 7 - 20 mg/dL [facility] Work Phone: [phone] Test Performed by [facility], [address] [place], [place] [address] [facility] Work Phone: [phone] [facility] Work Phone: [phone] Basic Metabolic Panel w/ Ref branden to MGOrdered By: Salome Kim on 08-25-2020 Anion gap [Moles/Vol] 8 mmol/L 3 - 13 mmol/L [facility] Work Phone: [phone] Calcium [Mass/Vol] 8.9 mg/dL 8.4 - 10. 4 mg/dL [facility] Work Phone: [phone] Chloride [Moles/Vol] 98 mmol/L 98 - 10 7 mmol/L [facility] Work Phone: [phone] CO2 [Moles/Vol] 30 mmol/L 22 - 30 mmol/L [facility] Work Phone: [phone] Creatinine [Mass/Vol] 1.65 mg/dL High 0.52 - 1.25 mg/dL [facility] Work Phone: [phone] EGFR IF NonAfrican [place] 45.4 mL/min Abnormal >60 [facility] Work Phone: Comment on above: KDIGO guidelines pro vide the following GFR categories: Stage GFR(ml/min/1.73 m2) Terms G1 >=90 Normal or high G2 60-89 Mildly decreased* G3a 45-59 Mildly to moderately decreased G3b 30-44 Moderately to severely decreased G4 15-29 Severely decreased G5 <15 Kidney failure *Relative to young adult level. In the absence of evidence of kidney damage, neither GFR category G1 nor G2 fulfill the criteria for CKD. The CKD-EPI equation is validated in individuals 18 years of age and older. Currently the best equation for estimating glomerular filtration rate (GFR) from serum creatinine in children is the Bedside Oleary equation. It is less accurate in patients with extremes of muscle mass, restriction of dietary protein, ingestion of creatine, extra-renal metabolism of creatinine, or treatment with medications that affect renal tubular creatinine secretion. GFR/1.73 sq M.predicted ramona g blacks MDRD (S/P/Bld) [Vol rate/Area] 52.7 mL/min/{1.73_m2} Abnormal >60 [facility] Work Phone: Glucose [Mass/Vol] 143 mg/dL High 70 - 100 mg/dL [facility] Work Phone: Interpretation and review of laboratory results Abnormal [facility] Work Phone: Potassium [Moles/Vol] 3.6 mmol/L 3.5 - 5.1 mmol/L [facility] Work Phone: Sodium [Moles/Vol] 136 mmol/L 135 - 145 mmol/L [facility] Work Phone: Urea nitrogen (BldV) [Mass/Vol] 31 mg/dL High 7 - 20 mg/dL [facility] Work Phone: Test Performed by [facility] [address] Work Phone: [facility] Work Phone: CBC auto differentialOrdered By: Salome Kim on 08-25-2020 Absolute Baso # 0.1 10*3/uL 0.0 - 0.2 10*3/uL [facility] Work Phone: Absolute Neut # 9.5 10*3/uL High 1.8 - 7.0 10*3/uL [facility] Work Phone: Basophils/100 WBC (Bld) 0.5 % 0.0 - 2.0 % [facility] Work Phone: Eosinophils (Bld) [#/Vol] 0.1 10*3/uL 0. 0 - 0.5 10*3/uL [facility] Work Phone: Eosinophils/100 WBC (Bld) 0.6 % Low 1. 0 - 6.0 % [facility] Work Phone: Granulocytes/100 WBC (Bld) 77.0 % 4 0.0 - 80.0 % [facility] Work Phone: Hematocrit (Bld) [Volume fraction] 42.3 % 40.0 - 52.0 % [facility] Work Phone: [phone] 22 Hemoglobin.gastrointestinal spec 1 Ql (Stl) 14.5 g/dL 13.0 - 18.0 g/dL [facility] Work Phone: 1 Interpretation and review of laboratory results Abnormal [facility] Work Phone: 1 Lymphocytes (Bld) [#/Vol] 1.6 10*3/uL 1. 0 - 4.3 10*3/uL [facility] Work Phone: 1 Lymphocytes/100 WBC (Bld) 13.4 % Low 20 .0 - 40.0 % [facility] Work Phone: 1 MCH (RBC) [Entitic mass] 29.4 pg 26. 0 - 34.0 pg [facility] Work Phone: MCHC (RBC) [Mass/Vol] 34.2 % 32.0 - 36.0 % [facility] Phone: MCV (RBC) [Entitic vol] 85.8 fL 80.0 - 98.0 fL [facility] Work Phone: 1 Monocytes (Bld) [#/Vol] 1.0 10*3/uL High 0.0 - 0.8 10*3/uL [facility] Work Phone: 1 Monocytes/100 WBC (Bld) 8.5 % 2.0 - 10.0 % [facility] Phone: Platelet distribution width (Bld) [Ratio] 15.1 % High 11.5 - 14.5 % [facility] Phone: Platelet mean volume (Bld) [Entitic vol] 6.1 fL Low 7.4 - 10.4 fL [facility] Work Phone: Platelets (Bld) [#/Vol] 217 10*3/uL 140 - 440 10*3/uL [facility] Work Phone: RBC (Bld) [#/Vol] 4.93 10*6/uL 4.40 - 5.90 10*6/uL [facility] Work Phone: WBC (Bld) [#/Vol] 12.3 10*3/uL High 3.6 - 10.7 10*3/uL [facility] Work Phone: [phone] Test Performed by [employer] [facility], [address], [place], [place] [address] [facility] Work Phone: [facility] Work Phone: CT HEAD WO CONTRASTOrdered B y: Jessica Sharp on 08-25-2020 Patient Name: SOPHIE HICKS Computed Tomography ACCESSION EXAM DATE/TIME PROCEDURE ORDERING PROVIDER [id number] 08/25/2020 19:[address] Head or Brain w/o MD ROSA, JESSICA Contrast CPT code 43584 Reason For Exam (CT Head or Brain w/o Contrast) s/p trip and fall w/ head trauma, current change in vision Report CT HEAD WITHOUT CONTRAST CLINICAL INDICATION: Vision changes. Status post fall. Axial CT images of the brain were obtained without intravenous contrast. Coronal and sagittal reformatted images were also made available for interpretation. COMPARISON: MRI brain dated 07/24/2020. CT head dated 07/23/2020 FINDINGS: The ventricles, sulci, and cisterns are within normal limits for the patient's age. No high attenuation material is seen to suggest hemorrhage. There is no evidence for acute cortical infarction. No midline shift or mass effect is noted. No fracture is identified on the bone windows. The visualized portion of the paranasal sinuses appear clear. IMPRESSION: Unremarkable noncontrast CT of the brain. Report Dictated on --- Final --- Dictating Physician: MD SEGURA JONATHAN R Signed Date and Time: 08/25/2020 7:59 pm Signed by: MD SEGURA JONATHAN R Transcribed Date and Time: 08/25/2020 8:01 [facility] Work Phone: [place], [facility] Incoming Radiology Results From [facility] - 08/25/2020 8:01 PM EDT Patient Name: SOPHIE HICKS Computed Tomography ACCESSION EXAM DATE/TIME PROCEDURE ORDERING PROVIDER [id number] 08/25/2020 19:[address] Head or Brain w/o MD ROSA, JESSICA Osman CPT code 31402 Reason For Exam (CT Head or Brain w/o Contrast) s/p trip and fall w/ head trauma, current change in vision Report CT HEAD WITHOUT CONTRAST CLINICAL INDICATION: Vision changes. Status post fall. Axial CT images of the brain were obtained without intravenous contrast. Coronal and sagittal reformatted images were also made available for interpretation. COMPARISON: MRI brain dated 07/24/2020. CT head dated 07/23/2020 FINDINGS: The ventricles, sulci, and cisterns are within normal limits for the patient's age. No high attenuation material is seen to suggest hemorrhage. There is no evidence for acute cortical infarction. No midline shift or mass effect is noted. No fracture is identified on the bone windows. The visualized portion of the paranasal sinuses appear clear. IMPRESSION: Unremarkable noncontrast CT of the brain. Report Dictated on --- Final --- Dictating Physician: MD SEGURA JONATHAN R Signed Date and Time: 08/25/2020 7:59 pm Signed by: MD SEGURA JONATHAN R Transcribed Date and Time: 08/25/2020 8:01 [facility] Work Phone: [phone] [facility] Work Phone: [phone] MAGNESIUMOrdered By: Zahra Sharp on 08-25-2020 Magnesium [Mass/Vol] 1.9 mg/dL 1.6 - 2 .3 mg/dL [facility] Work Phone: [phone] No Panel InformationOrdered By: Jessica Sharp on 08-25-2020 [facility], [address] [place] [address] [address] Work Phone: [phone] [facility] Work Phone: [phone] PHOSPHORUSOrdered By: Mayra Moreno on 08-25-2020 Phosphate [Mass/Vol] 3.7 mg/dL 2.5 - 4 .5 mg/dL [facility] Work Phone: [phone] XR Shoulder Left 2 VWOrdered By: Jessica Sharp on 08-25-2020 [id number] ACCESSION EXAM DATE/TIME PROCEDURE ORDERING PROVIDER [id number] 08/25/2020 20:10 EDT CR Shoulder 2+ Views MD SHARP CHANELLE Pankaj CPT code 89265 Reason For Exam (CR Shoulder 2+ Views Left) s/p trip and fall Report LEFT SHOULDER 3 VIEWS CLINICAL INDICATION: s/p trip and fall, pain TECHNIQUE: 3 views of the left shoulder. COMPARISON: July,. FINDINGS: No acute fracture or dislocation. Postsurgical change and sutural anchors again noted in the humeral head. Glenohumeral joint maintained. Mild degenerative change in the AC joint. Soft tissues grossly unremarkable. Fixation rods and laminar screws again noted in lower cervical spine. IMPRESSION: 1. No acute osseous abnormality. 2. Postsurgical and mild AC joint arthrosis. Report Dictated on --- Final --- Dictating Physician: MD LEAL WENDELL Signed Date and Time: 08/25/2020 8:46 pm Signed by: MD LEAL WENDELL Transcribed Date and Time: 08/25/2020 8:47 [facility] Work Phone: [facility], [facility] Incoming Radiology Results From [facility] - 08/25/2020 8:47 PM EDT [id number] Radiology ACCESSION EXAM DATE/TIME PROCEDURE ORDERING PROVIDER [id number] 08/25/2020 20:10 EDT CR Shoulder 2+ Views MD SHARP CHANELLE Pankaj CPT code 86696 Reason For Exam (CR Shoulder 2+ Views Left) s/p trip and fall Report LEFT SHOULDER 3 VIEWS CLINICAL INDICATION: s/p trip and fall, pain TECHNIQUE: 3 views of the left shoulder. COMPARISON: July,. FINDINGS: No acute fracture or dislocation. Postsurgical change and sutural anchors again noted in the humeral head. Glenohumeral joint maintained. Mild degenerative change in the AC joint. Soft tissues grossly unremarkable. Fixation rods and laminar screws again noted in lower cervical spine. IMPRESSION: 1. No acute osseous abnormality. 2. Postsurgical and mild AC joint arthrosis. Report Dictated on --- Final --- Dictating Physician: MD LEAL WENDELL Signed Date and Time: 08/25/2020 8:46 pm Signed by: MD LEAL WENDELL Transcribed Date and Time: 08/25/2020 8:47 [facility] Work Phone: [facility] Work Phone: Basic Metabolic Panel w/ Ref branden to MGOrdered By: Saolme Kim on 08-24-2020 Anion gap [Moles/Vol] 7 mmol/L 3 - 13 mmol/L [facility] Work Phone: Calcium [Mass/Vol] 9.0 mg/dL 8.4 - 10. 4 mg/dL [facility] Work Phone: Chloride [Moles/Vol] 99 mmol/L 98 - 10 7 mmol/L [facility] Work Phone: CO2 [Moles/Vol] 27 mmol/L 22 - 30 mmol/L [facility] Work Phone: Creatinine [Mass/Vol] 1.41 mg/dL High 0.52 - 1.25 mg/dL [facility] Work Phone: EGFR IF NonAfrican [place] 55.0 mL/min Abnormal >60 [facility] Work Phone: Comment on above: KDIGO guidelines pro vide the following GFR categories: Stage GFR(ml/min/1.73 m2) Terms G1 >=90 Normal or high G2 60-89 Mildly decreased* G3a 45-59 Mildly to moderately decreased G3b 30-44 Moderately to severely decreased G4 15-29 Severely decreased G5 <15 Kidney failure *Relative to young adult level. In the absence of evidence of kidney damage, neither GFR category G1 nor G2 fulfill the criteria for CKD. The CKD-EPI equation is validated in individuals 18 years of age and older. Currently the best equation for estimating glomerular filtration rate (GFR) from serum creatinine in children is the Bedside Oleary equation. It is less accurate in patients with extremes of muscle mass, restriction of dietary protein, ingestion of creatine, extra-renal metabolism of creatinine, or treatment with medications that affect renal tubular creatinine secretion. GFR/1.73 sq M.predicted ramona g blacks MDRD (S/P/Bld) [Vol rate/Area] 63.7 mL/min/{1.73_m2} >60 [facility] Work Phone: Glucose [Mass/Vol] 143 mg/dL High 70 - 100 mg/dL [facility] Work Phone: Interpretation and review of laboratory results Abnormal [facility] Work Phone: Potassium [Moles/Vol] 3.7 mmol/L 3.5 - 5.1 mmol/L [facility] Work Phone: Sodium [Moles/Vol] 133 mmol/L Low 135 - 145 mmol/L [facility] Work Phone: Urea nitrogen (BldV) [Mass/Vol] 23 mg/dL High 7 - 20 mg/dL [facility] Work Phone: Test Performed by [facility], [address] [place] [address] [facility] Work Phone: [facility] Work Phone: CBC auto differentialOrdered By: Salome Kim on 08-24-2020 Absolute Baso # 0.1 10*3/uL 0.0 - 0.2 10*3/uL [facility] Work Phone: Absolute Neut # 10.3 10*3/uL High 1.8 - 7.0 10*3/uL [facility] Work Phone: Basophils/100 WBC (Bld) 0.7 % 0.0 - 2.0 % [facility] Work Phone: Eosinophils (Bld) [#/Vol] 0.1 10*3/uL 0. 0 - 0.5 10*3/uL [facility] Work Phone: Eosinophils/100 WBC (Bld) 1.0 % 1. 0 - 6.0 % [facility] Work Phone: Granulocytes/100 WBC (Bld) 76.5 % 4 0.0 - 80.0 % [facility] Work Phone: Hematocrit (Bld) [Volume fraction] 40.6 % 40.0 - 52.0 % [facility] Work Phone: 1 Hemoglobin.gastrointestinal spec 1 Ql (Stl) 14.0 g/dL 13.0 - 18.0 g/dL [facility] Work Phone: Interpretation and review of laboratory results Abnormal [facility] Work Phone: Lymphocytes (Bld) [#/Vol] 1.5 10*3/uL 1. 0 - 4.3 10*3/uL [facility] Work Phone: Lymphocytes/100 WBC (Bld) 11.4 % Low 20 .0 - 40.0 % [facility] Work Phone: MCH (RBC) [Entitic mass] 29.7 pg 26. 0 - 34.0 pg [facility] Work Phone: MCHC (RBC) [Mass/Vol] 34.6 % 32.0 - 36.0 % [employer] Phone: MCV (RBC) [Entitic vol] 86.0 fL 80.0 - 98.0 fL [facility] Work Phone: Monocytes (Bld) [#/Vol] 1.4 10*3/uL High 0.0 - 0.8 10*3/uL [facility] Work Phone: Monocytes/100 WBC (Bld) 10.4 % High 2.0 - 10.0 % [employer] Phone: Platelet distribution width (Bld) [Ratio] 15.0 % High 11.5 - 14.5 % [facility] Work Phone: Platelet mean volume (Bld) [Entitic vol] 6.1 fL Low 7.4 - 10.4 fL [facility] Work Phone: Platelets (Bld) [#/Vol] 219 10*3/uL 140 - 440 10*3/uL [facility] Work Phone: RBC (Bld) [#/Vol] 4.72 10*6/uL 4.40 - 5.90 10*6/uL [facility] Work Phone: WBC (Bld) [#/Vol] 13.5 10*3/uL High 3.6 - 10.7 10*3/uL [facility] Work Phone: Test Performed by [facility], [address] [place], [place] [address] [facility] Work Phone: [phone] [facility] Work Phone: [phone] Basic Metabolic Panel w/ Ref branden to MGOrdered By: Salome Kim on 08-23-2020 Anion gap [Moles/Vol] 7 mmol/L 3 - 13 mmol/L [facility] Work Phone: [phone] Calcium [Mass/Vol] 9.1 mg/dL 8.4 - 10. 4 mg/dL [facility] Work Phone: [phone] Chloride [Moles/Vol] 105 mmol/L 98 - 10 7 mmol/L [facility] Work Phone: [phone] CO2 [Moles/Vol] 26 mmol/L 22 - 30 mmol/L [facility] Work Phone: [phone] Creatinine [Mass/Vol] 1.24 mg/dL 0.52 - 1.25 mg/dL [facility] Work Phone: EGFR IF NonAfrican [place] 64.2 mL/min >60 [facility] Work Phone: Comment on above: KDIGO guidelines pro vide the following GFR categories: Stage GFR(ml/min/1.73 m2) Terms G1 >=90 Normal or high G2 60-89 Mildly decreased* G3a 45-59 Mildly to moderately decreased G3b 30-44 Moderately to severely decreased G4 15-29 Severely decreased G5 <15 Kidney failure *Relative to young adult level. In the absence of evidence of kidney damage, neither GFR category G1 nor G2 fulfill the criteria for CKD. The CKD-EPI equation is validated in individuals 18 years of age and older. Currently the best equation for estimating glomerular filtration rate (GFR) from serum creatinine in children is the Bedside Oleary equation. It is less accurate in patients with extremes of muscle mass, restriction of dietary protein, ingestion of creatine, extra-renal metabolism of creatinine, or treatment with medications that affect renal tubular creatinine secretion. GFR/1.73 sq M.predicted ramona g blacks MDRD (S/P/Bld) [Vol rate/Area] 74.4 mL/min/{1.73_m2} >60 [facility] Work Phone: 1 Glucose [Mass/Vol] 153 mg/dL High 70 - 100 mg/dL [facility] Work Phone: Interpretation and review of laboratory results Abnormal [facility] Work Phone: Potassium [Moles/Vol] 4.2 mmol/L 3.5 - 5.1 mmol/L [facility] Work Phone: Sodium [Moles/Vol] 138 mmol/L 135 - 145 mmol/L [facility] Work Phone: Urea nitrogen (BldV) [Mass/Vol] 17 mg/dL 7 - 20 mg/dL [facility] Work Phone: Test Performed by [facility], [address] [place] [address] [facility] Work Phone: [facility] Work Phone: 1 CBC auto differentialOrdered By: Salome Kim on 08-23-2020 Absolute Baso # 0.1 10*3/uL 0.0 - 0.2 10*3/uL [facility] Work Phone: Absolute Neut # 5.9 10*3/uL 1.8 - 7.0 10*3/uL [facility] Work Phone: Basophils/100 WBC (Bld) 0.9 % 0.0 - 2.0 % [facility] Work Phone: Eosinophils (Bld) [#/Vol] 0.3 10*3/uL 0. 0 - 0.5 10*3/uL [facility] Work Phone: Eosinophils/100 WBC (Bld) 3.5 % 1. 0 - 6.0 % [facility] Work Phone: Granulocytes/100 WBC (Bld) 71.9 % 4 0.0 - 80.0 % [facility] Work Phone: Hematocrit (Bld) [Volume fraction] 40.6 % 40.0 - 52.0 % [facility] Work Phone: [phone] Hemoglobin.gastrointestinal spec 1 Ql (Stl) 13.9 g/dL 13.0 - 18.0 g/dL [facility] Work Phone: Interpretation and review of laboratory results Abnormal [facility] Work Phone: Lymphocytes (Bld) [#/Vol] 1.3 10*3/uL 1. 0 - 4.3 10*3/uL [facility] Work Phone: Lymphocytes/100 WBC (Bld) 15.7 % Low 20 .0 - 40.0 % [facility] Work Phone: 1 MCH (RBC) [Entitic mass] 29.6 pg 26. 0 - 34.0 pg [facility] Work Phone: MCHC (RBC) [Mass/Vol] 34.3 % 32.0 - 36.0 % [facility] Work Phone: MCV (RBC) [Entitic vol] 86.2 fL 80.0 - 98.0 fL [facility] Work Phone: Monocytes (Bld) [#/Vol] 0.7 10*3/uL 0.0 - 0.8 10*3/uL [facility] Work Phone: 1 Monocytes/100 WBC (Bld) 8.0 % 2.0 - 10.0 % [facility] Work Phone: 1 Platelet distribution width (Bld) [Ratio] 15.0 % High 11.5 - 14.5 % [facility] Work Phone: Platelet mean volume (Bld) [Entitic vol] 5.9 fL Low 7.4 - 10.4 fL [facility] Work Phone: Platelets (Bld) [#/Vol] 190 10*3/uL 140 - 440 10*3/uL [facility] Work Phone: RBC (Bld) [#/Vol] 4.72 10*6/uL 4.40 - 5.90 10*6/uL [facility] Work Phone: WBC (Bld) [#/Vol] 8.2 10*3/uL 3.6 - 10.7 10*3/uL [facility] Work Phone: 1 Test Performed by [facility], [address], [place], [place] [address] [facility] Work Phone: 1 [facility] Work Phone: 1 Medication Assisted Treatmen t PanelOrdered By: Yovani Ansari on 08-23-2020 Amphetamines Ql (U) Negative [facility] Work Phone: 1 Barbiturates Negative [facility] Work Phone: 1 Benzodiazepines Ql (U) Negative [facility] Work Phone: 1 Buprenorphine Negative [facility] Work Phone: 1 Cocaine Ql (U) Negative [facility] Work Phone: 1 Comment See Below [facility] Work Phone: Comment on above: The expected value f or the drugs listed above is Negative. The following drugs or drug groups have been screened for by Immunoassay at the following thresholds: Amphetamine class(1000ng/mL), Barbituates(200ng/mL), Benzodiazepines(200ng/mL), Cocaine(300ng/mL), Ethanol (50 ng/mL), Methadone(300ng/mL), Opiates(300ng/mL), Oxycodone(100ng/mL), PCP(25ng/mL), Buprenorphine(5ng/mL), THC(50ng/mL), Fentanyl(2ng/mL). Positive results are NOT confirmed by a more specific alternative method unless requested. If confirmation is needed, request confirmation under separate order. NOTE: These results are for medical treatment only. Analysis performed using non-forensic procedures. Ethanol [Mass/Vol] Negative [facility] Work Phone: 1 Fentanyl Negative [facility] Work Phone: 1 Methadone Ql (U) Negative [facility] Work Phone: 1 Opiates Ql (U) Negative [facility] Work Phone: Oxycodone + Oxymorphone Negative [facility] Work Phone: 1 PCP Negative [facility] Work Phone: 1 THC Negative [facility] Work Phone: Test Performed by [facility], [address] [place] [address] [facility] Work Phone: 1 [facility] Work Phone: 1 Add On Lab TestOrdered By: Maribel Ansari on 08-22-2020 Add On Accepted [facility] Work Phone: 1 Comment on above: Specimen available & acceptable for analysis. Test Performed by [facility], [address] [place], [place] [address] [facility] Work Phone: 1 [facility] Work Phone: 1 Add On Lab TestOrdered By: Fernanda Rodriguez on 08-22-2020 Add On Accepted [facility] Work Phone: Comment on above: Specimen available & acceptable for analysis. Test Performed by [facility], [address] [place], [place] [address] [facility] Work Phone: 1 [facility] Work Phone: 1 Basic Metabolic Panel w/ Ref branden to MGOrdered By: Salome Kim on 08-22-2020 Anion gap [Moles/Vol] 4 mmol/L 3 - 13 mmol/L [facility] Work Phone: Calcium [Mass/Vol] 9.1 mg/dL 8.4 - 10. 4 mg/dL [facility] Work Phone: 1 Chloride [Moles/Vol] 105 mmol/L 98 - 10 7 mmol/L [facility] Work Phone: CO2 [Moles/Vol] 28 mmol/L 22 - 30 mmol/L [facility] Work Phone: 1 Creatinine [Mass/Vol] 1.05 mg/dL 0.52 - 1.25 mg/dL [facility] Work Phone: EGFR IF NonAfrican [place]i 78.5 mL/min >60 [facility] Work Phone: Comment on above: KDIGO guidelines pro vide the following GFR categories: Stage GFR(ml/min/1.73 m2) Terms G1 >=90 Normal or high G2 60-89 Mildly decreased* G3a 45-59 Mildly to moderately decreased G3b 30-44 Moderately to severely decreased G4 15-29 Severely decreased G5 <15 Kidney failure *Relative to young adult level. In the absence of evidence of kidney damage, neither GFR category G1 nor G2 fulfill the criteria for CKD. The CKD-EPI equation is validated in individuals 18 years of age and older. Currently the best equation for estimating glomerular filtration rate (GFR) from serum creatinine in children is the Bedside Oleary equation. It is less accurate in patients with extremes of muscle mass, restriction of dietary protein, ingestion of creatine, extra-renal metabolism of creatinine, or treatment with medications that affect renal tubular creatinine secretion. GFR/1.73 sq M.predicted ramona g blacks MDRD (S/P/Bld) [Vol rate/Area] mL/min/{1.73_m2} >60 mL/min [facility] Work Phone: [phone] Glucose [Mass/Vol] 179 mg/dL High 70 - 100 mg/dL [facility] Work Phone: [phone] Interpretation and review of laboratory results Abnormal [facility] Work Phone: Potassium [Moles/Vol] 3.8 mmol/L 3.5 - 5.1 mmol/L [facility] Work Phone: Sodium [Moles/Vol] 136 mmol/L 135 - 145 mmol/L [facility] Work Phone: [phone] Urea nitrogen (BldV) [Mass/Vol] 14 mg/dL 7 - 20 mg/dL [facility] Work Phone: [phone] CBC auto differentialOrdered By: Salome Kim on 08-22-2020 Absolute Baso # 0.1 10*3/uL 0.0 - 0.2 10*3/uL [facility] Work Phone: [phone] Absolute Neut # 6.0 10*3/uL 1.8 - 7.0 10*3/uL [facility] Work Phone: [phone] Basophils/100 WBC (Bld) 1.2 % 0.0 - 2.0 % [facility] Work Phone: [phone] Eosinophils (Bld) [#/Vol] 0.4 10*3/uL 0. 0 - 0.5 10*3/uL [facility] Work Phone: [phone] Eosinophils/100 WBC (Bld) 4.3 % 1. 0 - 6.0 % [facility] Work Phone: 1 Granulocytes/100 WBC (Bld) 70.1 % 4 0.0 - 80.0 % [facility] Work Phone: [phone] Hematocrit (Bld) [Volume fraction] 39.2 % Low 40.0 - 52.0 % [facility] Work Phone: [phone] Hemoglobin.gastrointestinal spec 1 Ql (Stl) 13.5 g/dL 13.0 - 18.0 g/dL [facility] Work Phone: [phone] Interpretation and review of laboratory results Abnormal [facility] Work Phone: Lymphocytes (Bld) [#/Vol] 1.5 10*3/uL 1. 0 - 4.3 10*3/uL [facility] Work Phone: Lymphocytes/100 WBC (Bld) 18.2 % Low 20 .0 - 40.0 % [facility] Work Phone: 1 MCH (RBC) [Entitic mass] 29.8 pg 26. 0 - 34.0 pg [facility] Work Phone: [phone] MCHC (RBC) [Mass/Vol] 34.5 % 32.0 - 36.0 % [facility] Work Phone: [phone] MCV (RBC) [Entitic vol] 86.2 fL 80.0 - 98.0 fL [facility] Work Phone: Monocytes (Bld) [#/Vol] 0.5 10*3/uL 0.0 - 0.8 10*3/uL [facility] Work Phone: [phone] Monocytes/100 WBC (Bld) 6.2 % 2.0 - 10.0 % [facility] Work Phone: [phone] Platelet distribution width (Bld) [Ratio] 15.3 % High 11.5 - 14.5 % [facility] Work Phone: [phone] Platelet mean volume (Bld) [Entitic vol] 6.2 fL Low 7.4 - 10.4 fL [facility] Work Phone: [phone] Platelets (Bld) [#/Vol] 200 10*3/uL 140 - 440 10*3/uL [facility] Work Phone: 1 RBC (Bld) [#/Vol] 4.54 10*6/uL 4.40 - 5.90 10*6/uL [facility] Work Phone: 1 WBC (Bld) [#/Vol] 8.5 10*3/uL 3.6 - 10.7 10*3/uL [facility] Work Phone: 1 Test Performed by [facility], [address], [place] [address] [facility] Work Phone: [facility] Work Phone: 1 MAGNESIUMOrdered By: Salome Kim on 08-22-2020 Magnesium [Mass/Vol] 1.7 mg/dL 1.6 - 2 .3 mg/dL [facility] Work Phone: Microalbumin / Creatinine Ur ine RatioOrdered By: Salome Kim on 08-22-2020 Albumin/Creatinine DL <= 20 mg/L (24H U) [Mass ratio] >1140.0 High 0.0 - 17.0 mg/L [facility] Work Phone: Comment on above: Microalbumin concent rations <30 are considered normal, 30-300 are considered microalbuminuria (or risk of diabetic nephropathy), and >300 are considered clinical albuminuria (clinical nephropathy). Diabetes Care,27, Supplement 1, C31-00, 2004 Albumin/Creatinine DL <= 20 mg/L (U) [Ratio] see below 0.0 - 29.9 mg/g [facility] Work Phone: Comment on above: Unable to calculate due to a value out of range. Creatinine (U) [Mass/Vol] 96.7 mg/dL No Range [facility] Work Phone: Interpretation and review of laboratory results Abnormal [facility] Work Phone: Test Performed by [facility], [address] [place], [place] [address] [facility] Work Phone: [facility] Work Phone: 1 No Panel InformationOrdered By: Salome Kim on 08-22-2020 Test Performed by [facility], [address] [place], [place] [address] [facility] Work Phone: 1 [facility] Work Phone: Protein, urine, randomOrdere d By: Salome Kim on 08-22-2020 Interpretation and review of laboratory results Abnormal [facility] Work Phone: 1 Protein (U) [Mass/Vol] 322 mg/dL High No Range [facility] Work Phone: 1 Test Performed by [facility], [address] [place], [place] [address] [facility] Work Phone: [facility] Work Phone: Basic Metabolic PanelOrdered By: Daniel Maya on 08-19-2020 Anion gap [Moles/Vol] 8 mmol/L 3 - 13 mmol/L [facility] Work Phone: Calcium [Mass/Vol] 8.7 mg/dL 8.4 - 10. 4 mg/dL [facility] Work Phone: Chloride [Moles/Vol] 105 mmol/L 98 - 10 7 mmol/L [facility] Work Phone: CO2 [Moles/Vol] 26 mmol/L 22 - 30 mmol/L [facility] Work Phone: Creatinine [Mass/Vol] 0.99 mg/dL 0.52 - 1.25 mg/dL [facility] Work Phone: EGFR IF NonAfrican [place] 84.3 mL/min >60 [facility] Work Phone: Comment on above: KDIGO guidelines pro vide the following GFR categories: Stage GFR(ml/min/1.73 m2) Terms G1 >=90 Normal or high G2 60-89 Mildly decreased* G3a 45-59 Mildly to moderately decreased G3b 30-44 Moderately to severely decreased G4 15-29 Severely decreased G5 <15 Kidney failure *Relative to young adult level. In the absence of evidence of kidney damage, neither GFR category G1 nor G2 fulfill the criteria for CKD. The CKD-EPI equation is validated in individuals 18 years of age and older. Currently the best equation for estimating glomerular filtration rate (GFR) from serum creatinine in children is the Bedside Oleary equation. It is less accurate in patients with extremes of muscle mass, restriction of dietary protein, ingestion of creatine, extra-renal metabolism of creatinine, or treatment with medications that affect renal tubular creatinine secretion. GFR/1.73 sq M.predicted ramona g blacks MDRD (S/P/Bld) [Vol rate/Area] mL/min/{1.73_m2} >60 mL/min [facility] Work Phone: [phone] Glucose [Mass/Vol] 121 mg/dL High 70 - 100 mg/dL [facility] Work Phone: [phone] Interpretation and review of laboratory results Abnormal [facility] Work Phone: [phone] Potassium [Moles/Vol] 4.1 mmol/L 3.5 - 5.1 mmol/L [facility] Work Phone: [phone] Sodium [Moles/Vol] 138 mmol/L 135 - 145 mmol/L [facility] Work Phone: [phone] Urea nitrogen (BldV) [Mass/Vol] 13 mg/dL 7 - 20 mg/dL [facility] Work Phone: Test Performed by [facility], [address] [place] [address] [facility] Work Phone: [phone] PSA, Prostatic Specific Anti genOrdered By: Kathy Aragon on 08-09-2020 Prostatic Specific Ag 2.065 ng/mL <4.000 [facility] Work Phone: Comment on above: Testing performed on the [employer] 5600 using an immunometric methodology. Results obtained by different methods should not be used interchangeably. Test Performed by [facility], [facility] [address] , [place], [place] [address] [facility] Work Phone: CBCon 07-25-2020 Hematocrit (Bld) [Volume fraction] 39.1 % Low 40.0 - 52.0 % [facility] Work Phone: Hemoglobin.gastrointestinal spec 1 Ql (Stl) 13.1 g/dL 13.0 - 18.0 g/dL [facility] Work Phone: [phone] MCH (RBC) [Entitic mass] 29.0 pg 26. 0 - 34.0 pg [facility] Work Phone: [phone] MCHC (RBC) [Mass/Vol] 33.5 % 32.0 - 36.0 % [facility] Work Phone: [phone] MCV (RBC) [Entitic vol] 86.4 fL 80.0 - 98.0 fL [facility] Work Phone: [phone] Platelet distribution width (Bld) [Ratio] 14.4 % 11.5 - 14.5 % [facility] Work Phone: [phone] Platelet mean volume (Bld) [Entitic vol] 6.4 fL Low 7.4 - 10.4 fL [facility] Work Phone: [phone] Platelets (Bld) [#/Vol] 197 10*3/uL 140 - 440 10*3/uL [facility] Work Phone: [phone] RBC (Bld) [#/Vol] 4.52 10*6/uL 4.40 - 5.90 10*6/uL [facility] Work Phone: [phone] WBC (Bld) [#/Vol] 8.9 10*3/uL 3.6 - 10.7 10*3/uL [facility] Work Phone: [phone] Comprehensive Metabolic Pane l w/ Reflex to MGon 07-25-2020 Albumin [Mass/Vol] 3.3 g/dL Low 3.5 - 5.0 g/dL [facility] Work Phone: [phone] ALP (Bld) [Catalytic activity/Vol] 62 U/L 38 - 126 U/L [facility] Work Phone: [phone] ALT [Catalytic activity/Vol] 20 U/L 0 - 49 U/L [facility] Work Phone: [phone] Comment on above: The ALT test is perf ormed by an updated assay method. Please note that the reference intervals have been changed and are now sex specific. Anion gap [Moles/Vol] 8 mmol/L 3 - 13 mmol/L [facility] Work Phone: [phone] AST [Catalytic activity/Vol] 30 U/L 15 - 46 U/L [facility] Work Phone: [phone] Bilirubin [Mass/Vol] 0.4 mg/dL 0.2 - 1 .3 mg/dL [facility] Work Phone: [phone] Calcium [Mass/Vol] 8.1 mg/dL Low 8.4 - 10. 4 mg/dL [facility] Work Phone: [phone] Chloride [Moles/Vol] 105 mmol/L 98 - 10 7 mmol/L [facility] Work Phone: [phone] CO2 [Moles/Vol] 24 mmol/L 22 - 30 mmol/L [facility] Work Phone: [phone] Creatinine [Mass/Vol] 1.26 mg/dL High 0.52 - 1.25 mg/dL [facility] Work Phone: [phone] EGFR IF NonAfrican [place] 63.0 mL/min >60 [facility] Work Phone: Comment on above: KDIGO guidelines pro vide the following GFR categories: Stage GFR(ml/min/1.73 m2) Terms G1 >=90 Normal or high G2 60-89 Mildly decreased* G3a 45-59 Mildly to moderately decreased G3b 30-44 Moderately to severely decreased G4 15-29 Severely decreased G5 <15 Kidney failure *Relative to young adult level. In the absence of evidence of kidney damage, neither GFR category G1 nor G2 fulfill the criteria for CKD. The CKD-EPI equation is validated in individuals 18 years of age and older. Currently the best equation for estimating glomerular filtration rate (GFR) from serum creatinine in children is the Bedside Oleary equation. It is less accurate in patients with extremes of muscle mass, restriction of dietary protein, ingestion of creatine, extra-renal metabolism of creatinine, or treatment with medications that affect renal tubular creatinine secretion. Free PSA/Prostate specific Ag.total [Mass fraction] 5.8 g/dL Low 6.3 - 8.2 g/dL [facility] Work Phone: GFR/1.73 sq M predicted ramona g blacks MDRD (S/P/Bld) [Vol rate/Area] 73.0 mL/min/{1.73_m2} >60 [facility] Work Phone: [phone] Glucose [Mass/Vol] 172 mg/dL High 70 - 100 mg/dL [facility] Work Phone: Interpretation and review of laboratory results Abnormal [facility] Work Phone: Potassium [Moles/Vol] 3.9 mmol/L 3.5 - 5.1 mmol/L [facility] Work Phone: [phone] Sodium [Moles/Vol] 137 mmol/L 135 - 145 mmol/L [facility] Work Phone: [phone] Urea nitrogen (BldV) [Mass/Vol] 21 mg/dL High 7 - 20 mg/dL [facility] Phone: [phone] Test Performed by [facility], [address] [place] [address] [facility] Phone: ECHO Complete 2D W Doppler W Coloron 07-25-2020 TRANSTHORACIC ECHOCARDIOGRAM PATIENT: Sophie Hicks STUDY DATE: 07/25/2020 : 1965 AGE: 54 HT/WT: 182.9 cm (72 170.1 kg (374.2 in) lb) GENDER: M BP: 130 / 79 LOCATION: [facility] PATIENT Observation main STATUS: *ORDERING PHYSICIAN: * Zina Ruiz *READING PHYSICIAN: * Artie *SPEECH LANGUAGE PATHOLOGIST ASSISTANT: * Cristel Brar MD RDCS,AE, PE, RVT INDICATIONS: STROKE. CONCLUSIONS SUMMARY: 1. Left ventricle: Not well visualized. Systolic function is by the biplane method of disks. The estimated ejection fraction is 57%. Unable to assess LV diastolic function due to suboptimal technical data 2. Right ventricle: Not well visualized. Systolic function is grossly normal. 3. Atrial septum: Not well visualized. 4. Mitral valve: Not well visualized. Structurally normal valve. 5. Aortic valve: Not well visualized. 6. Tricuspid valve: Not well visualized. 7. Technically difficult study. STUDY DATA: Complete transthoracic echocardiogram. Procedure: Image quality was poor. The study was technically limited due to poor acoustic window availability. Intravenous imaging enhancement (Definity) was administered to opacify the chamber. Definity lot #: [id number]. M-mode, complete 2D, complete spectral Doppler, and color flow Doppler images were acquired and archived for permanent storage and are available for subsequent review. Study status: Routine. Patient status: Observation. Bubble study performed ECG RHYTHM: NSR FINDINGS LEFT VENTRICLE: Not well visualized. The cavity size is normal. Wall thickness is normal. Systolic function is by the biplane method of disks. The estimated ejection fraction is 57%. Unable to assess LV diastolic function due to suboptimal technical data RIGHT VENTRICLE: Not well visualized. The cavity size is normal. Systolic function is grossly normal. Right ventricular systolic pressure is within the normal range. VENTRICULAR SEPTUM: There is no evidence of a ventricular septal defect. LEFT ATRIUM: Poorly visualized. The atrium is normal in size. RIGHT ATRIUM: Poorly visualized. The atrium is normal in size. ATRIAL SEPTUM: Not well visualized. Color Doppler shows no shunt. There is no evidence of right to left shunting with injection of agitated saline contrast. MITRAL VALVE: Not well visualized. Structurally normal valve. Doppler: There is no regurgitation. The peak diastolic gradient is 3 mm Hg. AORTIC VALVE: Not well visualized. Doppler: There is no regurgitation. TRICUSPID VALVE: Not well visualized. Structurally normal valve. Doppler: There is trivial, less than 1+ regurgitation. PULMONIC VALVE: Not well visualized. AORTA: The aorta is poorly visualized and normal. PULMONARY ARTERY: Main pulmonary artery: Normal. PERICARDIUM: There is no pericardial effusion. SYSTEMIC VEINS: Not visualized. Measurements Left ventricle Value Reference LV ID, ED 4.7 cm 4.2 - 5.8 LV ID, ES 3.4 cm 2.5 - 4.0 LV ID/bsa, ED (L) 1.6 cm/m^2 2.2 - 3.0 LV ID/bsa, ES (L) 1.1 cm/m^2 1.3 - 2.1 LV PW thickness, ED (H) 1.1 cm 0.6 - 1.0 LV PW/LV ID ratio, ED 0.24 LV wall mass (H) 201 g 96 - 200 LV wall mass/bsa 66 g/m^2 50 - 102 Stroke volume/bsa, 1-p A2C 45.2 ml/m^2 LV end-diastolic volume, 1-p A4C (H) 213 ml 69 - 185 LV end-systolic volume, 1-p A4C (H) 100 ml 22 - 78 LV end-diastolic volume, 2-p (H) 226 ml 62 - 150 LV end-systolic volume, 2-p (H) 97 ml 21 - 61 LV ejection fraction, 2-p 57 % 52 - 72 LV E/e', lateral 9.1 LV E/e', medial 13.7 LV E/e', average 10.9 Ventricular septum Value Reference IVS thickness, ED (H) 1.2 cm 0.6 - 1.0 LVOT Value Reference LVOT ID, A-P 2.2 cm LVOT mean velocity, S 0.7 m/sec LVOT peak gradient, S 4 mm Hg Stroke volume (SV), LVOT DP 75 ml Stroke index (SV/bsa), LVOT DP 25 ml/m^2 Mitral valve Value Reference Mitral E-wave peak velocity 0.9 m/sec Mitral A-wave peak velocity 0.7 m/sec Mitral deceleration time 146 ms Mitral peak gradient, D 3 mm Hg Mitral E/A ratio, peak 1.3 Right ventricle Value Reference TAPSE, 2D 1.7 cm 1.7 - 3.1 RV s', lateral 12.4 cm/sec 6.0 - 13.4 Legend: (L) and (H) louisa values outside specified reference range. Electronically signed by Artie Brar MD 07/25/2020 13:40 Prior Signatures: [facility] Work Phone: Kirk, [facility] Incoming Cardiology Results From [employer] - 07/25/2020 1:41 PM EDT TRANSTHORACIC ECHOCARDIOGRAM PATIENT: Sophie Hicks STUDY DATE: 07/25/2020 : 1965 AGE: 54 HT/WT: 182.9 cm (72 170.1 kg (374.2 in) lb) GENDER: M BP: 130 / 79 LOCATION: [facility] PATIENT Observation main STATUS: *ORDERING PHYSICIAN: * Zina Ruiz *READING PHYSICIAN: * Artie *SPEECH LANGUAGE PATHOLOGIST ASSISTANT: * Cristel Brar MD RDCS,AE, PE, RVT INDICATIONS: STROKE. CONCLUSIONS SUMMARY: 1. Left ventricle: Not well visualized. Systolic function is by the biplane method of disks. The estimated ejection fraction is 57%. Unable to assess LV diastolic function due to suboptimal technical data 2. Right ventricle: Not well visualized. Systolic function is grossly normal. 3. Atrial septum: Not well visualized. 4. Mitral valve: Not well visualized. Structurally normal valve. 5. Aortic valve: Not well visualized. 6. Tricuspid valve: Not well visualized. 7. Technically difficult study. STUDY DATA: Complete transthoracic echocardiogram. Procedure: Image quality was poor. The study was technically limited due to poor acoustic window availability. Intravenous imaging enhancement (Definity) was administered to opacify the chamber. Definity lot #: [id number]. M-mode, complete 2D, complete spectral Doppler, and color flow Doppler images were acquired and archived for permanent storage and are available for subsequent review. Study status: Routine. Patient status: Observation. Bubble study performed ECG RHYTHM: NSR FINDINGS LEFT VENTRICLE: Not well visualized. The cavity size is normal. Wall thickness is normal. Systolic function is by the biplane method of disks. The estimated ejection fraction is 57%. Unable to assess LV diastolic function due to suboptimal technical data RIGHT VENTRICLE: Not well visualized. The cavity size is normal. Systolic function is grossly normal. Right ventricular systolic pressure is within the normal range. VENTRICULAR SEPTUM: There is no evidence of a ventricular septal defect. LEFT ATRIUM: Poorly visualized. The atrium is normal in size. RIGHT ATRIUM: Poorly visualized. The atrium is normal in size. ATRIAL SEPTUM: Not well visualized. Color Doppler shows no shunt. There is no evidence of right to left shunting with injection of agitated saline contrast. MITRAL VALVE: Not well visualized. Structurally normal valve. Doppler: There is no regurgitation. The peak diastolic gradient is 3 mm Hg. AORTIC VALVE: Not well visualized. Doppler: There is no regurgitation. TRICUSPID VALVE: Not well visualized. Structurally normal valve. Doppler: There is trivial, less than 1+ regurgitation. PULMONIC VALVE: Not well visualized. AORTA: The aorta is poorly visualized and normal. PULMONARY ARTERY: Main pulmonary artery: Normal. PERICARDIUM: There is no pericardial effusion. SYSTEMIC VEINS: Not visualized. Measurements Left ventricle Value Reference LV ID, ED 4.7 cm 4.2 - 5.8 LV ID, ES 3.4 cm 2.5 - 4.0 LV ID/bsa, ED (L) 1.6 cm/m^2 2.2 - 3.0 LV ID/bsa, ES (L) 1.1 cm/m^2 1.3 - 2.1 LV PW thickness, ED (H) 1.1 cm 0.6 - 1.0 LV PW/LV ID ratio, ED 0.24 LV wall mass (H) 201 g 96 - 200 LV wall mass/bsa 66 g/m^2 50 - 102 Stroke volume/bsa, 1-p A2C 45.2 ml/m^2 LV end-diastolic volume, 1-p A4C (H) 213 ml 69 - 185 LV end-systolic volume, 1-p A4C (H) 100 ml 22 - 78 LV end-diastolic volume, 2-p (H) 226 ml 62 - 150 LV end-systolic volume, 2-p (H) 97 ml 21 - 61 LV ejection fraction, 2-p 57 % 52 - 72 LV E/e', lateral 9.1 LV E/e', medial 13.7 LV E/e', average 10.9 Ventricular septum Value Reference IVS thickness, ED (H) 1.2 cm 0.6 - 1.0 LVOT Value Reference LVOT ID, A-P 2.2 cm LVOT mean velocity, S 0.7 m/sec LVOT peak gradient, S 4 mm Hg Stroke volume (SV), LVOT DP 75 ml Stroke index (SV/bsa), LVOT DP 25 ml/m^2 Mitral valve Value Reference Mitral E-wave peak velocity 0.9 m/sec Mitral A-wave peak velocity 0.7 m/sec Mitral deceleration time 146 ms Mitral peak gradient, D 3 mm Hg Mitral E/A ratio, peak 1.3 Right ventricle Value Reference TAPSE, 2D 1.7 cm 1.7 - 3.1 RV s', lateral 12.4 cm/sec 6.0 - 13.4 Legend: (L) and (H) louisa values outside specified reference range. Electronically signed by Artie Brar MD 07/25/2020 13:40 Prior Signatures: yetu Work Phone: Otheron 07-25-2020 Interpretation and review of laboratory results Abnormal yetu Work Phone: Test Performed by [facility], [address] [place] [address] yetu Work Phone: POCT Glucoseon 07-25-2020 Glucose [Mass/Vol] 115 mg/dL High 70 - 100 mg/dL yetu Work Phone: Comment on above: Test performed by gl ucose meter. Results may be 10%-15% lower than serum/plasma values. (CLIA ID [id number]) Interpretation and review of laboratory results Abnormal yetu Work Phone: Test Performed by [facility], [facility] [place] [address] yetu Work Phone: Glucose [Mass/Vol] 180 mg/dL High 70 - 100 mg/dL yetu Work Phone: Comment on above: Test performed by gl ucose meter. Results may be 10%-15% lower than serum/plasma values. (CLIA ID [id number]) Interpretation and review of laboratory results Abnormal yetu Work Phone: Test Performed by [facility], [facility] [place] [address] yetu Work Phone: US RETROPERITONEAL LIMITEDon 07-25-2020 Kirk, [facility] Incoming Radiology Results From [facility] - 07/25/2020 10:31 AM EDT Patient Name: SOPHIE HICKS Ultrasound ACCESSION EXAM DATE/TIME PROCEDURE ORDERING PROVIDER [id number] 07/25/2020 10:26 EDT US Retroperitoneal MD MARTI, BISHER Limited CPT code 69033 Reason For Exam (US Retroperitoneal Limited) nephropathy, LE edema Report Indication: Neuropathy and lower extremity edema. Detailed ultrasound of the kidneys was performed. Portions of the right kidney are suboptimally visualized due to overlying bowel gas. The right kidney measures approximately 10.5 x 5.8 x 6.2 cm and the left kidney measures 11.2 x 5.3 x 6 cm. The kidneys are grossly normal in echotexture. There are no cystic or solid masses identified in either kidney. There is question of a 4 to 5 mm left renal stone. There is no evidence of hydronephrosis. Limited images of the urinary bladder reveal mild diffuse urinary bladder wall thickening. Impression: 1. Possible 4 to 5 mm left renal stone. No evidence of hydronephrosis bilaterally. 2. Mild urinary bladder wall thickening. Report Dictated on --- Final --- Dictated: 07/25/2020 10:28 am Dictating Physician: DO GARCIA ANTHONY Signed Date and Time: 07/25/2020 10:30 am Signed by: DO GARCIA ANTHONY Transcribed Date and Time: 07/25/2020 10:28 [facility] Work Phone: Patient Name: SOPHIE HICKS Ultrasound ACCESSION EXAM DATE/TIME PROCEDURE ORDERING PROVIDER [id number] 07/25/2020 10:26 EDT US Retroperitoneal MD MARTI, YARA [facility] CPT code 74663 Reason For Exam (US Retroperitoneal Limited) nephropathy, LE edema Report Indication: Neuropathy and lower extremity edema. Detailed ultrasound of the kidneys was performed. Portions of the right kidney are suboptimally visualized due to overlying bowel gas. The right kidney measures approximately 10.5 x 5.8 x 6.2 cm and the left kidney measures 11.2 x 5.3 x 6 cm. The kidneys are grossly normal in echotexture. There are no cystic or solid masses identified in either kidney. There is question of a 4 to 5 mm left renal stone. There is no evidence of hydronephrosis. Limited images of the urinary bladder reveal mild diffuse urinary bladder wall thickening. Impression: 1. Possible 4 to 5 mm left renal stone. No evidence of hydronephrosis bilaterally. 2. Mild urinary bladder wall thickening. Report Dictated on --- Final --- Dictated: 07/25/2020 10:28 am Dictating Physician: DO GARCIA ANTHONY Signed Date and Time: 07/25/2020 10:30 am Signed by: DO GARCIA ANTHONY Transcribed Date and Time: 07/25/2020 10:28 [facility] Work Phone: CBCon 07-24-2020 Hematocrit (Bld) [Volume fraction] 43.9 % 40.0 - 52.0 % [facility] Work Phone: Hemoglobin.gastrointestinal spec 1 Ql (Stl) 14.7 g/dL 13.0 - 18.0 g/dL yetu Work Phone: 1 Interpretation and review of laboratory results Abnormal yetu Work Phone: MCH (RBC) [Entitic mass] 28.8 pg 26. 0 - 34.0 pg [facility] Work Phone: 1 MCHC (RBC) [Mass/Vol] 33.5 % 32.0 - 36.0 % [facility] Work Phone: MCV (RBC) [Entitic vol] 86.0 fL 80.0 - 98.0 fL [facility] Work Phone: Platelet distribution width (Bld) [Ratio] 14.2 % 11.5 - 14.5 % [employer] Phone: 1 Platelet mean volume (Bld) [Entitic vol] 6.6 fL Low 7.4 - 10.4 fL [employer] Phone: Platelets (Bld) [#/Vol] 249 10*3/uL 140 - 440 10*3/uL [facility] Work Phone: RBC (Bld) [#/Vol] 5.11 10*6/uL 4.40 - 5.90 10*6/uL [facility] Work Phone: WBC (Bld) [#/Vol] 10.1 10*3/uL 3.6 - 10.7 10*3/uL [employer] Phone: 1 Test Performed by [facility], [address] [place] [address] yetu Work Phone: 1 CREATININE, RANDOM URINEon 0 07-24-2020 Creatinine (U) [Mass/Vol] 113.7 mg/dL No Range [facility] Work Phone: 1 Chloride, Random Urineon Chloride [Moles/Vol] 95 mmol/L 18 - 20 9 mmol/L [employer] Phone: 1 Comprehensive Metabolic Pane l w/ Reflex to MGon 07-24-2020 Albumin [Mass/Vol] 3.7 g/dL 3.5 - 5.0 g/dL [facility] Work Phone: ALP (Bld) [Catalytic activity/Vol] 57 U/L 38 - 126 U/L [facility] Work Phone: ALT [Catalytic activity/Vol] 30 U/L 0 - 49 U/L [facility] Work Phone: Comment on above: The ALT test is perf ormed by an updated assay method. Please note that the reference intervals have been changed and are now sex specific. Anion gap [Moles/Vol] 10 mmol/L 3 - 13 mmol/L [facility] Work Phone: AST [Catalytic activity/Vol] 35 U/L 15 - 46 U/L [facility] Work Phone: Bilirubin [Mass/Vol] 0.8 mg/dL 0.2 - 1 .3 mg/dL [facility] Work Phone: [phone] Calcium [Mass/Vol] 8.9 mg/dL 8.4 - 10. 4 mg/dL [facility] Work Phone: Chloride [Moles/Vol] 103 mmol/L 98 - 10 7 mmol/L [facility] Work Phone: CO2 [Moles/Vol] 21 mmol/L Low 22 - 30 mmol/L [facility] Work Phone: [phone] Creatinine [Mass/Vol] 1.26 mg/dL High 0.52 - 1.25 mg/dL [facility] Work Phone: EGFR IF NonAfrican [place] 63.0 mL/min >60 [facility] Work Phone: Comment on above: KDIGO guidelines pro vide the following GFR categories: Stage GFR(ml/min/1.73 m2) Terms G1 >=90 Normal or high G2 60-89 Mildly decreased* G3a 45-59 Mildly to moderately decreased G3b 30-44 Moderately to severely decreased G4 15-29 Severely decreased G5 <15 Kidney failure *Relative to young adult level. In the absence of evidence of kidney damage, neither GFR category G1 nor G2 fulfill the criteria for CKD. The CKD-EPI equation is validated in individuals 18 years of age and older. Currently the best equation for estimating glomerular filtration rate (GFR) from serum creatinine in children is the Bedside Oleary equation. It is less accurate in patients with extremes of muscle mass, restriction of dietary protein, ingestion of creatine, extra-renal metabolism of creatinine, or treatment with medications that affect renal tubular creatinine secretion. Free PSA/Prostate specific Ag.total [Mass fraction] 6.7 g/dL 6.3 - 8.2 g/dL [facility] Work Phone: [phone] GFR/1.73 sq M predicted ramona g blacks MDRD (S/P/Bld) [Vol rate/Area] 73.0 mL/min/{1.73_m2} >60 [facility] Work Phone: [phone] Glucose [Mass/Vol] 331 mg/dL High 70 - 100 mg/dL [facility] Work Phone: [phone] Interpretation and review of laboratory results Abnormal [facility] Work Phone: [phone] Potassium [Moles/Vol] 4.6 mmol/L 3.5 - 5.1 mmol/L [facility] Work Phone: [phone] Sodium [Moles/Vol] 133 mmol/L Low 135 - 145 mmol/L [facility] Work Phone: [phone] Urea nitrogen (BldV) [Mass/Vol] 16 mg/dL 7 - 20 mg/dL [facility] Work Phone: Test Performed by [facility], [address] [place] [address] yetu Work Phone: EKG 12 Lead if not already d one by chelsy 07-24-2020 [facility] Test Date: 2020-07-23 Pat Name: Sophie Hicks Department: [facility] Room: 1340 Gender: M 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: EDI : 1965 Requested By: [employer] software Order Number: [id number] Reading MD: Joel Pereyra Measurements Intervals [place] Rate: 87 P: 13 IN: 149 QRS: 32 QRSD: 98 T: 118 QT: 345 QTc: 415 Interpretive Statements Sinus rhythm Abnormal T, consider ischemia, lateral leads Electronically Signed On 07-24-2020 11:06:19 EDT by Joel Pereyra yetu Work Phone: Kirk, [facility] Incoming Cardiology Results From [facility] - 07/24/2020 11:07 AM EDT [facility] Test Date: 2020-07-23 Pat Name: Sophie Hicks Department: [facility] Room: 1340 Gender: M 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: EDI : 1965 Requested By: BUBBA SMITH Order Number: [id number] Reading MD: Joel Pereyra Measurements Intervals [place] Rate: 87 P: 13 IN: 149 QRS: 32 QRSD: 98 T: 118 QT: 345 QTc: 415 Interpretive Statements Sinus rhythm Abnormal T, consider ischemia, lateral leads Electronically Signed On 07-24-2020 11:06:19 EDT by Joel [place] Work Phone: EKG 12 lead if not done in t he EDon 07-24-2020 [facility] Test Date: 2020-07-23 Pat Name: [facility] Department: [facility] Room: 1340 Gender: M 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: : 1965 Requested By: APRIL HERRERA Order Number: [id number] Reading MD: Joel Pereyra Measurements Intervals [place] Rate: 109 P: 1 IN: 168 QRS: 20 QRSD: 78 T: 132 QT: 299 QTc: 403 Interpretive Statements Sinus tachycardia Nonspecific T abnormalities, lateral leads Electronically Signed On 07-24-2020 13:25:00 EDT by Joel W[place] Work Phone: Kirk, [facility] Incoming Cardiology Results From [facility] - 07/24/2020 1:26 PM EDT [facility] Test Date: 2020-07-23 Pat Name: [facility] Department: 1A Room: 1340 Gender: M 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: SW : 1965 Requested By: APRIL HERRERA Order Number: [id number] Reading MD: Joel Pereyra Measurements Intervals [place] Rate: 109 P: 1 IN: 168 QRS: 20 QRSD: 78 T: 132 QT: 299 QTc: 403 Interpretive Statements Sinus tachycardia Nonspecific T abnormalities, lateral leads Electronically Signed On 07-24-2020 13:25:00 EDT by Joel Pereyra [facility] Work Phone: [phone] Hemoglobin A1con 07-24-2020 eAG 117 mg/dL [facility]u Work Phone: [phone] HbA1c (Bld) [Mass fraction] 5.7 % Abnormal [facility] Work Phone: [phone] Comment on above: Normal less than 5.7 % Prediabetes 5.7% to 6.4% Diabetes 6.5% or higher --HgbA1C levels may not be accurate in patients who have renal disease, received recent blood transfusions, are anemic, or who have dyshemoglobinemia. Interpretation and review of laboratory results Abnormal [facility] Work Phone: [phone] Test Performed by [employer] [place] [address] [facility] Work Phone: [phone] Lipid panel - fastingon 07-12 Cholesterol [Mass/Vol] 215 mg/dL Abnormal <200 [facility] Work Phone: [phone] Cholesterol in HDL [Mass/Vol] 35 mg/dL Low 40 - 60 mg/dL [facility] Work Phone: [phone] Cholesterol in LDL [Mass/Vol] 128 mg/dL Abnormal <100 [facility] Work Phone: [phone] Cholesterol.total/Cholestero l in HDL [Mass ratio] 6 {ratio} [facility] Work Phone: [phone] Comment on above: Ref Range: < 3 Low Risk for CHD 3-6 Mod Risk for CHD > 6 High Risk for CHD Interpretation and review of laboratory results Abnormal [facility] Work Phone: [phone] Triglyceride [Mass/Vol] 260 mg/dL Abnormal <150 [facility] Work Phone: [phone] Test Performed by [place] [address] [facility] Work Phone: [phone] MRA HEAD WO CONTRASTon 07-24 Patient Name: SOPHIE HICKS Magnetic Resonance Imaging ACCESSION EXAM DATE/TIME PROCEDURE ORDERING PROVIDER [id number] 07/24/2020 16:00 EDT MRA Head w/o Contrast GREG RUIZ JESSICA CPT code 10115 Reason For Exam (MRA Head w/o Contrast) stroke Report EXAM TYPE: MRI Brain w/o Contrast, MRA Neck w/o Contrast, MRA Head w/o Contrast EXAM DATE AND TIME: 07/24/2020 4:00 PM EDT INDICATION: Stroke, slurred speech, right facial numbness COMPARISON: CT head on 07/23/2020 TECHNIQUE: MR imaging of the brain was obtained without contrast. MRA of the neck was obtained without contrast. NASCET criteria was utilized to evaluated proximal internal carotid artery stenosis. 3-D [id number] MRA of the [place] was obtained without contrast. FINDINGS: MRI BRAIN: Ventricles and sulci are normal in size and configuration for patient age. No extra axial collection. There are scattered foci of T2/FLAIR hyperintense signal within the cerebral white matter, which are nonspecific. Findings can be seen with microangiopathy, migraine syndrome or demyelinating disease amongst other etiologies. No cerebral edema, mass effect or evidence of intracranial mass. No acute infarction seen on the diffusion sequence. No evidence of hemorrhage on the gradient echo sequence. The intracranial vascular flow voids are normal in appearance. Cerebellar tonsils are in normal location. Visualized paranasal sinuses and mastoids are normal in signal. Bone marrow signal is unremarkable. MRA NECK: MRA of the neck demonstrates normal flow related enhancement in the bilateral common carotid and vertebral arteries. There is moderate narrowing of approximately 50-60 percent of the bilateral proximal internal carotid arteries versus changes related to motion artifact. Recommend repeat contrast enhanced MRA or CTA of the neck. MRA HEAD: At the posterior circulation, the bilateral V4 segments of the vertebral arteries are patent. The basilar artery is patent. Bilateral Magnetic Resonance Imaging Report business initiatives manager are patent. At the anterior circulation, bilateral intracranial carotid arteries are patent. Bilateral MCAs and ACAs are patent. Bilateral posterior communicating arteries are identified. No flow gap to suggest high grade stenosis. No medium or large sized aneurysm is identified. No evidence of arteriovenous malformation in the imaged field. IMPRESSION: 1. No acute infarct. 2. No cerebral edema, mass effect or evidence of intracranial mass. 3. Moderate narrowing of approximately 50-60 percent of the bilateral proximal internal carotid arteries versus changes related to motion artifact. Recommend repeat contrast enhanced MRA or CTA of the neck. 4. No hemodynamically significant narrowing of the major arteries of the [place] or posterior circulation. 5. Scattered foci of T2/FLAIR hyperintense signal within the cerebral white matter, which are nonspecific. Findings can be seen with microangiopathy, migraine syndrome or demyelinating disease amongst other etiologies. Report Dictated on --- Final --- Dictated: 07/24/2020 4:18 pm Dictating Physician: MD URBINA NEIL Signed Date and Time: 07/24/2020 4:28 pm Signed by: MD URBINA NEIL Transcribed Date and Time: 07/24/2020 4:18 [facility] Work Phone: [facility], [facility] Incoming Radiology Results From [facility] - 07/24/2020 4:29 PM EDT Patient Name: SOPHIE HICKS Magnetic Resonance Imaging ACCESSION EXAM DATE/TIME PROCEDURE ORDERING PROVIDER [id number] 07/24/2020 16:00 EDT MRA Head w/o Contrast GREG RUIZ JESSICA CPT code 62080 Reason For Exam (MRA Head w/o Contrast) stroke Report EXAM TYPE: MRI Brain w/o Contrast, MRA Neck w/o Contrast, MRA Head w/o Contrast EXAM DATE AND TIME: 07/24/2020 4:00 PM EDT INDICATION: Stroke, slurred speech, right facial numbness COMPARISON: CT head on 07/23/2020 TECHNIQUE: MR imaging of the brain was obtained without contrast. MRA of the neck was obtained without contrast. NASCET criteria was utilized to evaluated proximal internal carotid artery stenosis. 3-D [id number] MRA of the [place] was obtained without contrast. FINDINGS: MRI BRAIN: Ventricles and sulci are normal in size and configuration for patient age. No extra axial collection. There are scattered foci of T2/FLAIR hyperintense signal within the cerebral white matter, which are nonspecific. Findings can be seen with microangiopathy, migraine syndrome or demyelinating disease amongst other etiologies. No cerebral edema, mass effect or evidence of intracranial mass. No acute infarction seen on the diffusion sequence. No evidence of hemorrhage on the gradient echo sequence. The intracranial vascular flow voids are normal in appearance. Cerebellar tonsils are in normal location. Visualized paranasal sinuses and mastoids are normal in signal. Bone marrow signal is unremarkable. MRA NECK: MRA of the neck demonstrates normal flow related enhancement in the bilateral common carotid and vertebral arteries. There is moderate narrowing of approximately 50-60 percent of the bilateral proximal internal carotid arteries versus changes related to motion artifact. Recommend repeat contrast enhanced MRA or CTA of the neck. MRA HEAD: At the posterior circulation, the bilateral V4 segments of the vertebral arteries are patent. The basilar artery is patent. Bilateral Magnetic Resonance Imaging Report business initiatives manager are patent. At the anterior circulation, bilateral intracranial carotid arteries are patent. Bilateral MCAs and ACAs are patent. Bilateral posterior communicating arteries are identified. No flow gap to suggest high grade stenosis. No medium or large sized aneurysm is identified. No evidence of arteriovenous malformation in the imaged field. IMPRESSION: 1. No acute infarct. 2. No cerebral edema, mass effect or evidence of intracranial mass. 3. Moderate narrowing of approximately 50-60 percent of the bilateral proximal internal carotid arteries versus changes related to motion artifact. Recommend repeat contrast enhanced MRA or CTA of the neck. 4. No hemodynamically significant narrowing of the major arteries of the [place] or posterior circulation. 5. Scattered foci of T2/FLAIR hyperintense signal within the cerebral white matter, which are nonspecific. Findings can be seen with microangiopathy, migraine syndrome or demyelinating disease amongst other etiologies. Report Dictated on --- Final --- Dictated: 07/24/2020 4:18 pm Dictating Physician: MD URBINA NEIL Signed Date and Time: 07/24/2020 4:28 pm Signed by: MD URBINA NEIL Transcribed Date and Time: 07/24/2020 4:18 [facility] Work Phone: MRA NECK WO CONTRASTon 07-24 Patient Name: SOPHIE HICKS Magnetic Resonance Imaging ACCESSION EXAM DATE/TIME PROCEDURE ORDERING PROVIDER [id number] 07/24/2020 16:00 EDT MRA Neck w/o Contrast GREG RUIZ JESSICA CPT code 28222 Reason For Exam (MRA Neck w/o Contrast) stroke Report EXAM TYPE: MRI Brain w/o Contrast, MRA Neck w/o Contrast, MRA Head w/o Contrast EXAM DATE AND TIME: 07/24/2020 4:00 PM EDT INDICATION: Stroke, slurred speech, right facial numbness COMPARISON: CT head on 07/23/2020 TECHNIQUE: MR imaging of the brain was obtained without contrast. MRA of the neck was obtained without contrast. NASCET criteria was utilized to evaluated proximal internal carotid artery stenosis. 3-D slhs-rc-[id number] MRA of the [place] was obtained without contrast. FINDINGS: MRI BRAIN: Ventricles and sulci are normal in size and configuration for patient age. No extra axial collection. There are scattered foci of T2/FLAIR hyperintense signal within the cerebral white matter, which are nonspecific. Findings can be seen with microangiopathy, migraine syndrome or demyelinating disease amongst other etiologies. No cerebral edema, mass effect or evidence of intracranial mass. No acute infarction seen on the diffusion sequence. No evidence of hemorrhage on the gradient echo sequence. The intracranial vascular flow voids are normal in appearance. Cerebellar tonsils are in normal location. Visualized paranasal sinuses and mastoids are normal in signal. Bone marrow signal is unremarkable. MRA NECK: MRA of the neck demonstrates normal flow related enhancement in the bilateral common carotid and vertebral arteries. There is moderate narrowing of approximately 50-60 percent of the bilateral proximal internal carotid arteries versus changes related to motion artifact. Recommend repeat contrast enhanced MRA or CTA of the neck. MRA HEAD: At the posterior circulation, the bilateral V4 segments of the vertebral arteries are patent. The basilar artery is patent. Bilateral Magnetic Resonance Imaging Report business initiatives manager are patent. At the anterior circulation, bilateral intracranial carotid arteries are patent. Bilateral MCAs and ACAs are patent. Bilateral posterior communicating arteries are identified. No flow gap to suggest high grade stenosis. No medium or large sized aneurysm is identified. No evidence of arteriovenous malformation in the imaged field. IMPRESSION: 1. No acute infarct. 2. No cerebral edema, mass effect or evidence of intracranial mass. 3. Moderate narrowing of approximately 50-60 percent of the bilateral proximal internal carotid arteries versus changes related to motion artifact. Recommend repeat contrast enhanced MRA or CTA of the neck. 4. No hemodynamically significant narrowing of the major arteries of the [place] or posterior circulation. 5. Scattered foci of T2/FLAIR hyperintense signal within the cerebral white matter, which are nonspecific. Findings can be seen with microangiopathy, migraine syndrome or demyelinating disease amongst other etiologies. Report Dictated on --- Final --- Dictated: 07/24/2020 4:18 pm Dictating Physician: MD URBINA NEIL Signed Date and Time: 07/24/2020 4:28 pm Signed by: MD URBINA NEIL Transcribed Date and Time: 07/24/2020 4:18 [facility] Work Phone: [facility], [facility] Incoming Radiology Results From [facility] - 07/24/2020 4:29 PM EDT Patient Name: SOPHIE HICKS Magnetic Resonance Imaging ACCESSION EXAM DATE/TIME PROCEDURE ORDERING PROVIDER [id number] 07/24/2020 16:00 EDT MRA Neck w/o Contrast GREG RUIZ JESSICA CPT code 04328 Reason For Exam (MRA Neck w/o Contrast) stroke Report EXAM TYPE: MRI Brain w/o Contrast, MRA Neck w/o Contrast, MRA Head w/o Contrast EXAM DATE AND TIME: 07/24/2020 4:00 PM EDT INDICATION: Stroke, slurred speech, right facial numbness COMPARISON: CT head on 07/23/2020 TECHNIQUE: MR imaging of the brain was obtained without contrast. MRA of the neck was obtained without contrast. NASCET criteria was utilized to evaluated proximal internal carotid artery stenosis. 3-D orec-rk-qdzgwa MRA of the [place] was obtained without contrast. FINDINGS: MRI BRAIN: Ventricles and sulci are normal in size and configuration for patient age. No extra axial collection. There are scattered foci of T2/FLAIR hyperintense signal within the cerebral white matter, which are nonspecific. Findings can be seen with microangiopathy, migraine syndrome or demyelinating disease amongst other etiologies. No cerebral edema, mass effect or evidence of intracranial mass. No acute infarction seen on the diffusion sequence. No evidence of hemorrhage on the gradient echo sequence. The intracranial vascular flow voids are normal in appearance. Cerebellar tonsils are in normal location. Visualized paranasal sinuses and mastoids are normal in signal. Bone marrow signal is unremarkable. MRA NECK: MRA of the neck demonstrates normal flow related enhancement in the bilateral common carotid and vertebral arteries. There is moderate narrowing of approximately 50-60 percent of the bilateral proximal internal carotid arteries versus changes related to motion artifact. Recommend repeat contrast enhanced MRA or CTA of the neck. MRA HEAD: At the posterior circulation, the bilateral V4 segments of the vertebral arteries are patent. The basilar artery is patent. Bilateral Magnetic Resonance Imaging Report business initiatives manager are patent. At the anterior circulation, bilateral intracranial carotid arteries are patent. Bilateral MCAs and ACAs are patent. Bilateral posterior communicating arteries are identified. No flow gap to suggest high grade stenosis. No medium or large sized aneurysm is identified. No evidence of arteriovenous malformation in the imaged field. IMPRESSION: 1. No acute infarct. 2. No cerebral edema, mass effect or evidence of intracranial mass. 3. Moderate narrowing of approximately 50-60 percent of the bilateral proximal internal carotid arteries versus changes related to motion artifact. Recommend repeat contrast enhanced MRA or CTA of the neck. 4. No hemodynamically significant narrowing of the major arteries of the [place] or posterior circulation. 5. Scattered foci of T2/FLAIR hyperintense signal within the cerebral white matter, which are nonspecific. Findings can be seen with microangiopathy, migraine syndrome or demyelinating disease amongst other etiologies. Report Dictated on --- Final --- Dictated: 07/24/2020 4:18 pm Dictating Physician: MD URBINA NEIL Signed Date and Time: 07/24/2020 4:28 pm Signed by: MD URBINA NEIL Transcribed Date and Time: 07/24/2020 4:18 [facility] Work Phone: MRI BRAIN WO CONTRASTon 07-12 [id number] ACCESSION EXAM DATE/TIME PROCEDURE ORDERING PROVIDER [id number] 07/24/2020 16:00 EDT MRI Brain w/o Contrast GREG RUIZ JESSICA CPT code 04403 Reason For Exam (MRI Brain w/o Contrast) stroke Report EXAM TYPE: MRI Brain w/o Contrast, MRA Neck w/o Contrast, MRA Head w/o Contrast EXAM DATE AND TIME: 07/24/2020 4:00 PM EDT INDICATION: Stroke, slurred speech, right facial numbness COMPARISON: CT head on 07/23/2020 TECHNIQUE: MR imaging of the brain was obtained without contrast. MRA of the neck was obtained without contrast. NASCET criteria was utilized to evaluated proximal internal carotid artery stenosis. 3-D [id number] MRA of the [place] was obtained without contrast. FINDINGS: MRI BRAIN: Ventricles and sulci are normal in size and configuration for patient age. No extra axial collection. There are scattered foci of T2/FLAIR hyperintense signal within the cerebral white matter, which are nonspecific. Findings can be seen with microangiopathy, migraine syndrome or demyelinating disease amongst other etiologies. No cerebral edema, mass effect or evidence of intracranial mass. No acute infarction seen on the diffusion sequence. No evidence of hemorrhage on the gradient echo sequence. The intracranial vascular flow voids are normal in appearance. Cerebellar tonsils are in normal location. Visualized paranasal sinuses and mastoids are normal in signal. Bone marrow signal is unremarkable. MRA NECK: MRA of the neck demonstrates normal flow related enhancement in the bilateral common carotid and vertebral arteries. There is moderate narrowing of approximately 50-60 percent of the bilateral proximal internal carotid arteries versus changes related to motion artifact. Recommend repeat contrast enhanced MRA or CTA of the neck. MRA HEAD: At the posterior circulation, the bilateral V4 segments of the vertebral arteries are patent. The basilar artery is patent. Bilateral Magnetic Resonance Imaging Report business initiatives manager are patent. At the anterior circulation, bilateral intracranial carotid arteries are patent. Bilateral MCAs and ACAs are patent. Bilateral posterior communicating arteries are identified. No flow gap to suggest high grade stenosis. No medium or large sized aneurysm is identified. No evidence of arteriovenous malformation in the imaged field. IMPRESSION: 1. No acute infarct. 2. No cerebral edema, mass effect or evidence of intracranial mass. 3. Moderate narrowing of approximately 50-60 percent of the bilateral proximal internal carotid arteries versus changes related to motion artifact. Recommend repeat contrast enhanced MRA or CTA of the neck. 4. No hemodynamically significant narrowing of the major arteries of the [place] or posterior circulation. 5. Scattered foci of T2/FLAIR hyperintense signal within the cerebral white matter, which are nonspecific. Findings can be seen with microangiopathy, migraine syndrome or demyelinating disease amongst other etiologies. Report Dictated on --- Final --- Dictated: 07/24/2020 4:18 pm Dictating Physician: MD URBINA NEIL Signed Date and Time: 07/24/2020 4:28 pm Signed by: MD URBINA NEIL Transcribed Date and Time: 07/24/2020 4:18 [facility] Work Phone: Kirk, [facility] Incoming Radiology Results From [facility] - 07/24/2020 4:29 PM EDT Patient Name: SOPHIE HICKS Magnetic Resonance Imaging ACCESSION EXAM DATE/TIME PROCEDURE ORDERING PROVIDER [id number] 07/24/2020 16:00 EDT MRI Brain w/o Contrast GREG RUIZ JESSICA CPT code 90586 Reason For Exam (MRI Brain w/o Contrast) stroke Report EXAM TYPE: MRI Brain w/o Contrast, MRA Neck w/o Contrast, MRA Head w/o Contrast EXAM DATE AND TIME: 07/24/2020 4:00 PM EDT INDICATION: Stroke, slurred speech, right facial numbness COMPARISON: CT head on 07/23/2020 TECHNIQUE: MR imaging of the brain was obtained without contrast. MRA of the neck was obtained without contrast. NASCET criteria was utilized to evaluated proximal internal carotid artery stenosis. 3-D [id number] MRA of the [place] was obtained without contrast. FINDINGS: MRI BRAIN: Ventricles and sulci are normal in size and configuration for patient age. No extra axial collection. There are scattered foci of T2/FLAIR hyperintense signal within the cerebral white matter, which are nonspecific. Findings can be seen with microangiopathy, migraine syndrome or demyelinating disease amongst other etiologies. No cerebral edema, mass effect or evidence of intracranial mass. No acute infarction seen on the diffusion sequence. No evidence of hemorrhage on the gradient echo sequence. The intracranial vascular flow voids are normal in appearance. Cerebellar tonsils are in normal location. Visualized paranasal sinuses and mastoids are normal in signal. Bone marrow signal is unremarkable. MRA NECK: MRA of the neck demonstrates normal flow related enhancement in the bilateral common carotid and vertebral arteries. There is moderate narrowing of approximately 50-60 percent of the bilateral proximal internal carotid arteries versus changes related to motion artifact. Recommend repeat contrast enhanced MRA or CTA of the neck. MRA HEAD: At the posterior circulation, the bilateral V4 segments of the vertebral arteries are patent. The basilar artery is patent. Bilateral Magnetic Resonance Imaging Report business initiatives manager are patent. At the anterior circulation, bilateral intracranial carotid arteries are patent. Bilateral MCAs and ACAs are patent. Bilateral posterior communicating arteries are identified. No flow gap to suggest high grade stenosis. No medium or large sized aneurysm is identified. No evidence of arteriovenous malformation in the imaged field. IMPRESSION: 1. No acute infarct. 2. No cerebral edema, mass effect or evidence of intracranial mass. 3. Moderate narrowing of approximately 50-60 percent of the bilateral proximal internal carotid arteries versus changes related to motion artifact. Recommend repeat contrast enhanced MRA or CTA of the neck. 4. No hemodynamically significant narrowing of the major arteries of the [place] or posterior circulation. 5. Scattered foci of T2/FLAIR hyperintense signal within the cerebral white matter, which are nonspecific. Findings can be seen with microangiopathy, migraine syndrome or demyelinating disease amongst other etiologies. Report Dictated on --- Final --- Dictated: 07/24/2020 4:18 pm Dictating Physician: MD URBINA NEIL Signed Date and Time: 07/24/2020 4:28 pm Signed by: MD URBINA NEIL Transcribed Date and Time: 07/24/2020 4:18 [facility] Work Phone: MRI CERVICAL SPINE GUERRERO MCCORMICK Juanis 07-24-2020 [id number] Imaging ACCESSION EXAM DATE/TIME PROCEDURE ORDERING PROVIDER [id number] 07/24/2020 16:08 EDT MRI Spine Cervical w/o MD KIDD BISHER Contrast CPT code 84694 Reason For Exam (MRI Spine Cervical w/o Contrast) neck pain with L arm numbness Report CLINICAL INFORMATION: Neck pain with left upper extremity numbness. Prior cervical fusion. MRI cervical spine without contrast: Sagittal T1, turbo spin-echo T2 and T2-weighted inversion recovery and axial T2-weighted gradient echo images are obtained. There is no prior examination at this institution for comparison. There is no intrinsic signal or structural abnormality of the cervical spinal cord. There has been a C3 through C6 laminectomy with posterior instrumented fusion of the same levels using bilateral pedicle screws and rods. There is magnetic susceptibility artifact in the posterior aspect of the spinal canal at the C4-C5 level most likely secondary to fusion hardware possibly a crossbar. There is disc desiccation at C2-C3, C6-C7 and C7-T1 with well maintained intervertebral discs. The C3-C4 through C5-C6 intervertebral this are normally hydrated and well maintained. There is straightening of cervical lordosis. There are no areas of abnormal bone marrow signal intensity. There is a widely capacious cervical thecal sac and spinal canal. C2-C3: Minimal disc bulge without thecal sac or neural foraminal narrowing. No neural foraminal narrowing. C6-C7: Minimal disc bulge flattening the ventral aspect of the thecal sac and mildly flattening the ventral aspect of the spinal cord. No definite neural foraminal narrowing. No disc bulge or protrusion is seen at any other level. Evaluation of the neural foramina at the fused levels is limited by artifact from the pedicle screws, but no obvious neural foraminal narrowing is seen at the other levels. There is no evidence of significant spinal canal narrowing. IMPRESSION: 1. Multilevel cervical laminectomy and fusion with examination limitations as described. 2. Mild degenerative disc disease at C2-C3 and C6-C7 with disc bulges. Mild flattening of the ventral aspect of the spinal cord at C6-C7. 3. Limited evaluation of the neural foramina at the fused levels due to artifact from the pedicle screws without obvious neural foraminal narrowing. 4. See above comments for detailed description of findings. Magnetic Resonance Imaging Report Report Dictated on Workstation: [id number] --- Final --- Dictated: 07/24/2020 4:33 pm Dictating Physician: MD SMITH HARLAN Signed Date and Time: 07/24/2020 4:54 pm Signed by: MD SMITH HARLAN Transcribed Date and Time: 07/24/2020 4:33 [facility] Work Phone: [facility], [facility] Incoming Radiology Results From [facility] - 07/24/2020 4:56 PM EDT Patient Name: SOPHIE HICKS Magnetic Resonance Imaging ACCESSION EXAM DATE/TIME PROCEDURE ORDERING PROVIDER [id number] 07/24/2020 16:08 EDT MRI Spine Cervical w/o MD KIDD BISHER Contrast CPT code 20572 Reason For Exam (MRI Spine Cervical w/o Contrast) neck pain with L arm numbness Report CLINICAL INFORMATION: Neck pain with left upper extremity numbness. Prior cervical fusion. MRI cervical spine without contrast: Sagittal T1, turbo spin-echo T2 and T2-weighted inversion recovery and axial T2-weighted gradient echo images are obtained. There is no prior examination at this institution for comparison. There is no intrinsic signal or structural abnormality of the cervical spinal cord. There has been a C3 through C6 laminectomy with posterior instrumented fusion of the same levels using bilateral pedicle screws and rods. There is magnetic susceptibility artifact in the posterior aspect of the spinal canal at the C4-C5 level most likely secondary to fusion hardware possibly a crossbar. There is disc desiccation at C2-C3, C6-C7 and C7-T1 with well maintained intervertebral discs. The C3-C4 through C5-C6 intervertebral this are normally hydrated and well maintained. There is straightening of cervical lordosis. There are no areas of abnormal bone marrow signal intensity. There is a widely capacious cervical thecal sac and spinal canal. C2-C3: Minimal disc bulge without thecal sac or neural foraminal narrowing. No neural foraminal narrowing. C6-C7: Minimal disc bulge flattening the ventral aspect of the thecal sac and mildly flattening the ventral aspect of the spinal cord. No definite neural foraminal narrowing. No disc bulge or protrusion is seen at any other level. Evaluation of the neural foramina at the fused levels is limited by artifact from the pedicle screws, but no obvious neural foraminal narrowing is seen at the other levels. There is no evidence of significant spinal canal narrowing. IMPRESSION: 1. Multilevel cervical laminectomy and fusion with examination limitations as described. 2. Mild degenerative disc disease at C2-C3 and C6-C7 with disc bulges. Mild flattening of the ventral aspect of the spinal cord at C6-C7. 3. Limited evaluation of the neural foramina at the fused levels due to artifact from the pedicle screws without obvious neural foraminal narrowing. 4. See above comments for detailed description of findings. Magnetic Resonance Imaging Report Report Dictated on Workstation: [id number] --- Final --- Dictated: 07/24/2020 4:33 pm Dictating Physician: MD SMITH HARLAN Signed Date and Time: 07/24/2020 4:54 pm Signed by: MD SARAH, LOUIE Transcribed Date and Time: 07/24/2020 4:33 [facility] Work Phone: [phone] Osmolality, Urineon 07-25-19 Osmolality (U) [Osmolality] 549 mosm/kg 300 - 1000 mosm/kg [facility] Work Phone: [phone] Test Performed by Banyan, [facility] [place] [address] [facility] Work Phone: [phone] Otheron 07-24-2020 Test Performed by Banyan, [facility] [place] [address] [facility] Work Phone: [phone] POCT Glucoseon 07-24-2020 Glucose [Mass/Vol] 184 mg/dL High 70 - 100 mg/dL [facility] Work Phone: [phone] Comment on above: Test performed by gl ucose meter. Results may be 10%-15% lower than serum/plasma values. (CLIA ID [id number]) Glucose [Mass/Vol] 182 mg/dL High 70 - 100 mg/dL [facility] Work Phone: [phone] Comment on above: Test performed by gl ucose meter. Results may be 10%-15% lower than serum/plasma values. (CLIA ID [id number]) Interpretation and review of laboratory results Abnormal [facility] Work Phone: [phone] Test Performed by Banyan, [facility] [place] [address] [facility] Work Phone: [phone] Glucose [Mass/Vol] 229 mg/dL High 70 - 100 mg/dL [facility] Work Phone: [phone] Comment on above: Test performed by gl ucose meter. Results may be 10%-15% lower than serum/plasma values. (CLIA ID [id number]) Interpretation and review of laboratory results Abnormal [facility] Work Phone: [phone] Test Performed by Banyan, [facility] [place] [address] [facility] Work Phone: [phone] Glucose [Mass/Vol] 301 mg/dL High 70 - 100 mg/dL [facility] Work Phone: [phone] Comment on above: Test performed by [employer] ucose meter. Results may be 10%-15% lower than serum/plasma values. (CLIA ID [id number]) Interpretation and review of laboratory results Abnormal [facility] Work Phone: 1 Test Performed by Banyan, [facility] [place] [address] [facility] Work Phone: 1 PROTEIN, URINE, RANDOMon Interpretation and review of laboratory results Abnormal [facility] Work Phone: 1 Protein (U) [Mass/Vol] 829 mg/dL High No Range [facility] Work Phone: 1 Test Performed by Banyan, [address] [place] [address] [facility] Work Phone: 1 Sodium, Urine, Randomon 07-12 Sodium (U) [Moles/Vol] 79 mmol/L 30 - 90 mmol/L [facility] Work Phone: 1 Troponinon 07-24-2020 Troponin I.cardiac [Mass/Vol] ng/mL 0.000 - 0.034 ng/mL [facility] Work Phone: 1 Comment on above: . Test Performed by Banyan, [address] [place] [address] [facility] Work Phone: 1 Troponin I.cardiac [Mass/Vol] ng/mL 0.000 - 0.034 ng/mL [facility] Work Phone: 1 Comment on above: . Test Performed by Banyan, [facility] [place] [address] [facility] Work Phone: 1 Urinalysison 07-24-2020 Appearance (U) Clear Clear NA [facility] Work Phone: 1 Comment on above: . Bacteria, UA Few Abnormal Negative /[HPF] [facility] Work Phone: 1 Comment on above: . Bilirubin Urine Negative Negative mg/dL [facility] Work Phone: 1 Comment on above: . Color (U) Light-Yellow Lt. Yellow NA [facility] Work Phone: 1 Comment on above: . Glucose, Ur 100 mg/dL Abnormal Normal (<70) [facility] Work Phone: 1 Comment on above: . Hyaline Casts, UA Negative Negative /[LPF] [facility] Work Phone: 1 Comment on above: . Interpretation and review of laboratory results Abnormal [facility] Work Phone: 1 Ketones Ql (U) Negative Negative mg/dL [facility] Work Phone: 1 Comment on above: . LEUKOCYTES, UA Negative Negative Caprice/uL [facility] Work Phone: 1 Comment on above: . Mucous Threads Few Negative /[LPF] [facility] Work Phone: 1 Comment on above: . Nitrite, Urine Positive Abnormal Negative NA [facility] Work Phone: 1 Comment on above: . Occult Blood,Urine 0.2 mg/dL Abnormal Negative [facility] Work Phone: 1 Comment on above: . pH (U) 6.0 [pH] [facility] Work Phone: 1 Comment on above: . Protein (U) [Mass/Vol] 300 mg/dL Abnormal Negative [facility] Work Phone: 1 Comment on above: . RBC (U) [#/Vol] 0-2 0 - 2 /[HPF] [facility] Work Phone: 1 Comment on above: . Specific [place], Urine [address] [facility] Work Phone: 1 Comment on above: . Squam Epithel, UA 0-2 3 - 5 /[HPF] [facility] Work Phone: 1 Comment on above: . Urobilinogen, Urine Normal Normal (0-1) mg/dL [facility] Work Phone: 1 Comment on above: . WBC, UA 3-5 0 - 5 /[HPF] [facility] Work Phone: [phone] Comment on above: . Test Performed by Banyan, [address] [place] [address] [facility] Work Phone: [phone] XR Shoulder Left 2 VWon 07-12 [id number] Radiology ACCESSION EXAM DATE/TIME PROCEDURE ORDERING PROVIDER [id number] 07/24/2020 13:00 EDT CR Shoulder 2+ Views MD KIDD BISHER Pankaj CPT code 24146 Reason For Exam (CR Shoulder 2+ Views Left) L shoulder pain and limited range of motion Report LEFT SHOULDER History: Limited range of motion, prior rotator cuff surgery Findings: Three views of the left shoulder show no acute fracture, dislocation, bone erosion or periosteal reaction. The glenohumeral joint space is maintained. Surgical anchors overlie the humeral head. The acromioclavicular joint is unremarkable. There is surgical hardware the partially visualized lower cervical spine. Spondylosis also noted. IMPRESSION: No acute process. Report Dictated on --- Final --- Dictated: 07/24/2020 1:56 pm Dictating Physician: MD WEINBERG AHMAD Signed Date and Time: 07/24/2020 1:58 pm Signed by: MD WEINBERG AHMAD Transcribed Date and Time: 07/24/2020 1:56 [facility] Work Phone: [facility] From [facility] - 07/24/2020 1:59 PM EDT [facility]: [id number] Radiology ACCESSION EXAM DATE/TIME PROCEDURE ORDERING PROVIDER [id number] 07/24/2020 13:00 EDT CR Shoulder 2+ Views MD KIDD BISHER Left CPT code 83758 Reason For Exam (CR Shoulder 2+ Views Left) L shoulder pain and limited range of motion Report LEFT SHOULDER History: Limited range of motion, prior rotator cuff surgery Findings: Three views of the left shoulder show no acute fracture, dislocation, bone erosion or periosteal reaction. The glenohumeral joint space is maintained. Surgical anchors overlie the humeral head. The acromioclavicular joint is unremarkable. There is surgical hardware the partially visualized lower cervical spine. Spondylosis also noted. IMPRESSION: No acute process. Report Dictated on --- Final --- Dictated: 07/24/2020 1:56 pm Dictating Physician: MD WEINBERG AHMAD Signed Date and Time: 07/24/2020 1:58 pm Signed by: MD WEINBERG AHMAD Transcribed Date and Time: 07/24/2020 1:56 [facility] Work Phone: [phone] APTTon 07-23-2020 aPTT Coag (Bld) [Time] 24.3 s 20.0 - 30.5 s [facility] Work Phone: [phone] Comment on above: NOTE: The therapeuti c time for Heparin anticoagulation, based on Xa activity inhibition, is an APTT of 46-80 seconds. CBC Auto Differentialon 07-12 Absolute Baso # 0.1 10*3/uL 0.0 - 0.2 10*3/uL [facility] Work Phone: [phone] Absolute Neut # 4.6 10*3/uL 1.8 - 7.0 10*3/uL [facility] Work Phone: [phone] Basophils/100 WBC (Bld) 1.4 % 0.0 - 2.0 % [facility] Work Phone: Eosinophils (Bld) [#/Vol] 0.3 10*3/uL 0. 0 - 0.5 10*3/uL [facility] Work Phone: Eosinophils/100 WBC (Bld) 4.2 % 1. 0 - 6.0 % [facility] Work Phone: [phone] Granulocytes/100 WBC (Bld) 59.5 % 4 0.0 - 80.0 % [facility] Work Phone: [phone] Hematocrit (Bld) [Volume fraction] 42.0 % 40.0 - 52.0 % [facility] Work Phone: Hemoglobin.gastrointestinal spec 1 Ql (Stl) 14.5 g/dL 13.0 - 18.0 g/dL [facility] Work Phone: [phone] Interpretation and review of laboratory results Abnormal [facility] Work Phone: [phone] Lymphocytes (Bld) [#/Vol] 2.0 10*3/uL 1. 0 - 4.3 10*3/uL [facility] Work Phone: [phone] Lymphocytes/100 WBC (Bld) 26.1 % 20 .0 - 40.0 % [facility] Work Phone: MCH (RBC) [Entitic mass] 29.1 pg 26. 0 - 34.0 pg [facility] Work Phone: MCHC (RBC) [Mass/Vol] 34.5 % 32.0 - 36.0 % [facility] Work Phone: 1 MCV (RBC) [Entitic vol] 84.3 fL 80.0 - 98.0 fL [facility] Work Phone: Monocytes (Bld) [#/Vol] 0.7 10*3/uL 0.0 - 0.8 10*3/uL [facility] Work Phone: Monocytes/100 WBC (Bld) 8.8 % 2.0 - 10.0 % [facility] Work Phone: Platelet distribution width (Bld) [Ratio] 14.5 % 11.5 - 14.5 % [facility] Work Phone: Platelet mean volume (Bld) [Entitic vol] 6.2 fL Low 7.4 - 10.4 fL [facility] Work Phone: Platelets (Bld) [#/Vol] 214 10*3/uL 140 - 440 10*3/uL [facility] Work Phone: RBC (Bld) [#/Vol] 4.98 10*6/uL 4.40 - 5.90 10*6/uL [facility] Work Phone: 22 WBC (Bld) [#/Vol] 7.7 10*3/uL 3.6 - 10.7 10*3/uL [facility] Work Phone: 1 Test Performed by Banyan, [address] [place] [address] [facility] Work Phone: CT HEAD WO CONTRASTon 2020 Patient Name: SOPHIE HICKS Computed Tomography ACCESSION EXAM DATE/TIME PROCEDURE ORDERING PROVIDER [id number] 07/23/2020 12:[address] Head or Brain w/o [id number] -LUIS, BUBBA Contrast CPT code 78521 Reason For Exam (CT Head or Brain w/o Contrast) dizzy Report Indication: Dizzy Comparison date: 06/06/2018 FINDINGS: 3 mm unenhanced imaging of the brain performed. Images viewed in multiple orthogonal planes. There is no definite acute edema, midline shift, acute hemorrhage, or findings to suggest high likelihood of large acute infarct, within limits of the study. MRI more specific/sensitive. No abnormal extra-axial fluid collections visualized. Bony structures:Unremark able as seen. CSF spaces are unremarkable. Orbits within normal limits. Review of the paranasal sinuses shows no air-fluid levels. IMPRESSION: No acute brain process identified. Report Dictated on --- Final --- Dictated: 07/23/2020 1:25 pm Dictating Physician: MD DYE JOHN Signed Date and Time: 07/23/2020 1:28 pm Signed by: MD DYE JOHN Transcribed Date and Time: 07/23/2020 1:25 [facility] Work Phone: Kirk, [facility] Incoming Radiology Results From [facility] - 07/23/2020 1:29 PM EDT [id number] Computed Tomography ACCESSION EXAM DATE/TIME PROCEDURE ORDERING PROVIDER [id number] 07/23/2020 12:[address] Head or Brain w/o [id number] -LUIS, BUBBA Contrast CPT code 60926 Reason For Exam (CT Head or Brain w/o Contrast) dizzy Report Indication: Dizzy Comparison date: 06/06/2018 FINDINGS: 3 mm unenhanced imaging of the brain performed. Images viewed in multiple orthogonal planes. There is no definite acute edema, midline shift, acute hemorrhage, or findings to suggest high likelihood of large acute infarct, within limits of the study. MRI more specific/sensitive. No abnormal extra-axial fluid collections visualized. Bony structures:Unremark able as seen. CSF spaces are unremarkable. Orbits within normal limits. Review of the paranasal sinuses shows no air-fluid levels. IMPRESSION: No acute brain process identified. Report Dictated on --- Final --- Dictated: 07/23/2020 1:25 pm Dictating Physician: MD DYE JOHN Signed Date and Time: 07/23/2020 1:28 pm Signed by: MD DYE JOHN Transcribed Date and Time: 07/23/2020 1:25 [facility] Work Phone: [phone] Comprehensive Metabolic Pane l w/ Reflex to MGon 07-23-2020 Albumin [Mass/Vol] 3.7 g/dL 3.5 - 5.0 g/dL [facility] Work Phone: [phone] ALP (Bld) [Catalytic activity/Vol] 61 U/L 38 - 126 U/L [facility] Work Phone: [phone] ALT [Catalytic activity/Vol] 26 U/L 0 - 49 U/L [facility] Work Phone: [phone] Comment on above: The ALT test is perf ormed by an updated assay method. Please note that the reference intervals have been changed and are now sex specific. Anion gap [Moles/Vol] 4 mmol/L 3 - 13 mmol/L [facility] Work Phone: [phone] AST [Catalytic activity/Vol] 34 U/L 15 - 46 U/L [facility] Work Phone: [phone] Bilirubin [Mass/Vol] 0.5 mg/dL 0.2 - 1 .3 mg/dL [facility] Work Phone: [phone] Calcium [Mass/Vol] 9.0 mg/dL 8.4 - 10. 4 mg/dL [facility] Work Phone: [phone] Chloride [Moles/Vol] 105 mmol/L 98 - 10 7 mmol/L [facility] Work Phone: [phone] CO2 [Moles/Vol] 27 mmol/L 22 - 30 mmol/L [facility] Work Phone: [phone] Creatinine [Mass/Vol] 1.05 mg/dL 0.52 - 1.25 mg/dL [facility] Work Phone: [phone] EGFR IF NonAfrican [place]i 78.5 mL/min >60 [facility] Phone: [phone] Comment on above: KDIGO guidelines pro vide the following GFR categories: Stage GFR(ml/min/1.73 m2) Terms G1 >=90 Normal or high G2 60-89 Mildly decreased* G3a 45-59 Mildly to moderately decreased G3b 30-44 Moderately to severely decreased G4 15-29 Severely decreased G5 <15 Kidney failure *Relative to young adult level. In the absence of evidence of kidney damage, neither GFR category G1 nor G2 fulfill the criteria for CKD. The CKD-EPI equation is validated in individuals 18 years of age and older. Currently the best equation for estimating glomerular filtration rate (GFR) from serum creatinine in children is the Bedside Oleary equation. It is less accurate in patients with extremes of muscle mass, restriction of dietary protein, ingestion of creatine, extra-renal metabolism of creatinine, or treatment with medications that affect renal tubular creatinine secretion. Free PSA/Prostate specific Ag.total [Mass fraction] 6.6 g/dL 6.3 - 8.2 g/dL [facility] Work Phone: [phone] GFR/1.73 sq M predicted ramona g blacks MDRD (S/P/Bld) [Vol rate/Area] mL/min/{1.73_m2} >60 mL/min [facility] Phone: [phone] Glucose [Mass/Vol] 129 mg/dL High 70 - 100 mg/dL [facility] Phone: [phone] Interpretation and review of laboratory results Abnormal [facility] Work Phone: [phone] Potassium [Moles/Vol] 4.1 mmol/L 3.5 - 5.1 mmol/L [facility] Work Phone: [phone] Sodium [Moles/Vol] 137 mmol/L 135 - 145 mmol/L [facility] Phone: [phone] Urea nitrogen (BldV) [Mass/Vol] 14 mg/dL 7 - 20 mg/dL [facility] Phone: [phone] Test Performed by [facility], [address] [place] [address] [facility] Work Phone: [phone] Otheron 07-23-2020 Test Performed by [facility], [facility] [place] [address] [facility] Work Phone: [phone] POCT Glucoseon 07-23-2020 Glucose [Mass/Vol] 316 mg/dL High 70 - 100 mg/dL [facility] Work Phone: [phone] Comment on above: Test performed by gl ucose meter. Results may be 10%-15% lower than serum/plasma values. (CLIA ID [id number]) Interpretation and review of laboratory results Abnormal [facility] Work Phone: Test Performed by [facility], [facility] [place] [address] [facility] Work Phone: [phone] Protime-INRon 07-23-2020 INR Coag (Bld) [Relative time] 0.9 {INR} [facility] Work Phone: Comment on above: Recommended Anticoag ulant Therapy: SEE BELOW ----- INR of 2.0 - 3.0 : - Prophylaxis of Venous Thrombosis (high-risk surgery) - Treatment of Venous Thrombosis - Treatment of Pulmonary Embolism (Includes tissue heart valves, Acute Myocardial Infarction to prevent systemic embolism, Valvular Heart Disease, and Atrial Fibrillation) ----- INR of 2.5 - 3.5 : - Mechanical Prosthetic Valves (high risk) - If oral anticoagulant therapy is used to prevent Myocardial Infarction PT Coag (PPP) [Time] 10.3 s 9.0 - 1 2.0 s [facility] Work Phone: Comment on above: . Troponinon 07-23-2020 Troponin I.cardiac [Mass/Vol] ng/mL 0.000 - 0.034 ng/mL [facility] Work Phone: Comment on above: . Test Performed by [facility], [facility] [place] [address] [facility] Work Phone: XR CHEST PORTABLEon 07-24-19 21 Kirk, [facility] Incoming Radiology Results From [facility] - 07/23/2020 1:23 PM EDT Patient Name: SOPHIE HICKS Diagnostic Radiology ACCESSION EXAM DATE/TIME PROCEDURE ORDERING PROVIDER [id number] 07/23/2020 13:09 EDT CR Chest Portable [facility] [employer] CPT code 82086 Reason For Exam (CR Chest Portable) SOB Report EXAM TYPE: RADIOLOGIC EXAMINATION, CHEST, SINGLE VIEW FRONTAL (CXR SINGLE VIEW) EXAM DATE AND TIME: 07/23/2020 1:09 PM EDT INDICATION: Respiratory distress COMPARISON: 04/29/2020 TECHNIQUE: A single frontal view of the thorax was obtained and reviewed. Special views: None. IMPRESSION: 1. Lines/Tubes/Devices /Hardware: Monitoring leads.. Please confirm position/function of devices/catheters clinically. 2. Lungs: No consolidation or pulmonary edema. 3. Pleura: No significant effusion. No significant pneumothorax. 4. Heart and mediastinum: Limited due to technique. 5. Upper abdomen: No acute process seen. 6. Thorax:No acute bony process Report Dictated on --- Final --- Dictated: 07/23/2020 1:21 pm Dictating Physician: MD DYE JOHN Signed Date and Time: 07/23/2020 1:22 pm Signed by: MD DYE JOHN Transcribed Date and Time: 07/23/2020 1:21 [facility] Work Phone: Patient Name: SOPHIE HICKS [facility]#: [id number] Diagnostic Radiology ACCESSION EXAM DATE/TIME PROCEDURE ORDERING PROVIDER [id number] 07/23/2020 13:09 EDT CR Chest Portable Sylvia MariahJACKSONMIGUEL CPT code 75921 Reason For Exam (CR Chest Portable) SOB Report EXAM TYPE: RADIOLOGIC EXAMINATION, CHEST, SINGLE VIEW FRONTAL (CXR SINGLE VIEW) EXAM DATE AND TIME: 07/23/2020 1:09 PM EDT INDICATION: Respiratory distress COMPARISON: 04/29/2020 TECHNIQUE: A single frontal view of the thorax was obtained and reviewed. Special views: None. IMPRESSION: 1. Lines/Tubes/Devices /Hardware: Monitoring leads.. Please confirm position/function of devices/catheters clinically. 2. Lungs: No consolidation or pulmonary edema. 3. Pleura: No significant effusion. No significant pneumothorax. 4. Heart and mediastinum: Limited due to technique. 5. Upper abdomen: No acute process seen. 6. Thorax:No acute bony process Report Dictated on --- Final --- Dictated: 07/23/2020 1:21 pm Dictating Physician: MD DYE JOHN Signed Date and Time: 07/23/2020 1:22 pm Signed by: MD DYE JOHN Transcribed Date and Time: 07/23/2020 1:21 [facility] Work Phone: Basic Metabolic Panel w/ Ref branden to MGon 06-11-2020 Anion gap [Moles/Vol] 6 mmol/L 3 - 13 mmol/L [facility] Work Phone: Calcium [Mass/Vol] 8.0 mg/dL Low 8.4 - 10. 4 mg/dL [facility] Work Phone: Chloride [Moles/Vol] 100 mmol/L 98 - 10 7 mmol/L [facility] Work Phone: CO2 [Moles/Vol] 30 mmol/L 22 - 30 mmol/L [facility] Work Phone: Creatinine [Mass/Vol] 1.05 mg/dL 0.52 - 1.25 mg/dL [facility] Work Phone: EGFR IF NonAfrican [place]i 78.6 mL/min >60 [facility] Work Phone: Comment on above: KDIGO guidelines pro vide the following GFR categories: Stage GFR(ml/min/1.73 m2) Terms G1 >=90 Normal or high G2 60-89 Mildly decreased* G3a 45-59 Mildly to moderately decreased G3b 30-44 Moderately to severely decreased G4 15-29 Severely decreased G5 <15 Kidney failure *Relative to young adult level. In the absence of evidence of kidney damage, neither GFR category G1 nor G2 fulfill the criteria for CKD. The CKD-EPI equation is validated in individuals 18 years of age and older. Currently the best equation for estimating glomerular filtration rate (GFR) from serum creatinine in children is the Bedside Oleary equation. It is less accurate in patients with extremes of muscle mass, restriction of dietary protein, ingestion of creatine, extra-renal metabolism of creatinine, or treatment with medications that affect renal tubular creatinine secretion. GFR/1.73 sq M predicted ramona g blacks MDRD (S/P/Bld) [Vol rate/Area] mL/min/{1.73_m2} >60 mL/min [facility] Work Phone: 1 Glucose [Mass/Vol] 132 mg/dL High 70 - 100 mg/dL [facility] Work Phone: Interpretation and review of laboratory results Abnormal [facility] Work Phone: Potassium [Moles/Vol] 3.2 mmol/L Low 3.5 - 5.1 mmol/L [facility] Work Phone: Sodium [Moles/Vol] 136 mmol/L 135 - 145 mmol/L [facility] Work Phone: Urea nitrogen [Mass/Vol] 11 mg/dL 7 - 20 mg/dL [facility] Work Phone: 1 Test Performed by [facility], [address] [place] [address] [facility] Work Phone: CBC auto differentialon 03-0 Absolute Baso # 0.1 10*3/uL 0 - 0.2 10*3/uL [facility] Work Phone: Absolute Neut # 4.3 10*3/uL 1.8 - 7 10*3/uL [facility] Work Phone: [phone] 22 Basophils/100 WBC (Bld) 0.8 % 0 - 2 % [facility] Work Phone: Eosinophils (Bld) [#/Vol] 0.4 10*3/uL 0 - 0.5 10*3/uL [facility] Work Phone: 22 Eosinophils/100 WBC (Bld) 5.3 % 1 - 6 % [facility] Work Phone: Erythrocyte distribution width (RBC) [Ratio] 14.4 % 11.5 - 14.5 % [facility] Work Phone: Granulocytes/100 WBC (Bld) 64.0 % 40 - 80 % [facility] Work Phone: Hematocrit (Bld) [Volume fraction] 43.1 % 40 - 52 % [facility] Work Phone: 1 Hemoglobin (Bld) [Mass/Vol] 14.7 g/dL 13 - 18 g/dL [facility] Work Phone: Interpretation and review of laboratory results Abnormal [facility] Work Phone: Lymphocytes (Bld) [#/Vol] 1.5 10*3/uL 1 - 4.3 10*3/uL [facility] Work Phone: Lymphocytes/100 WBC (Bld) 22.0 % 20 - 40 % [facility] Work Phone: MCH (RBC) [Entitic mass] 28.8 pg 26 - 34 pg [facility] Work Phone: MCHC (RBC) [Mass/Vol] 34.1 % 32 - 36 % [facility] Work Phone: 1 MCV (RBC) [Entitic vol] 84.5 fL 80 - 98 fL [facility] Work Phone: Monocytes (Bld) [#/Vol] 0.5 10*3/uL 0 - 0.8 10*3/uL [facility] Work Phone: Monocytes/100 WBC (Bld) 7.9 % 2 - 10 % [facility] Work Phone: Platelet mean volume (Bld) [Entitic vol] 6.3 fL Low 7.4 - 10.4 fL [facility] Work Phone: Platelets (Bld) [#/Vol] 193 10*3/uL 140 - 440 10*3/uL [facility] Work Phone: RBC (Bld) [#/Vol] 5.10 10*6/uL 4.4 - 5.9 10*6/uL [facility] Work Phone: WBC (Bld) [#/Vol] 6.7 10*3/uL 3.6 - 10.7 10*3/uL [facility] Work Phone: 1 Test Performed by [facility], [address] [place], [place] [address] [facility] Work Phone: [phone] Magnesiumon 06-11-2020 Magnesium [Mass/Vol] 1.8 mg/dL 1.6 - 2 .3 mg/dL [facility] Work Phone: Test Performed by [facility], [address] [place], [place] [address] [facility] Work Phone: Basic Metabolic Panel w/ Ref branden to MGon 06-10-2020 Anion gap [Moles/Vol] 5 mmol/L 3 - 13 mmol/L [facility] Work Phone: [phone] Calcium [Mass/Vol] 8.0 mg/dL Low 8.4 - 10. 4 mg/dL [facility] Work Phone: [phone] Chloride [Moles/Vol] 102 mmol/L 98 - 10 7 mmol/L [facility] Work Phone: CO2 [Moles/Vol] 30 mmol/L 22 - 30 mmol/L [facility] Work Phone: Creatinine [Mass/Vol] 1.13 mg/dL 0.52 - 1.25 mg/dL [facility] Work Phone: EGFR IF NonAfrican [place]i 71.9 mL/min >60 [facility] Work Phone: Comment on above: KDIGO guidelines pro vide the following GFR categories: Stage GFR(ml/min/1.73 m2) Terms G1 >=90 Normal or high G2 60-89 Mildly decreased* G3a 45-59 Mildly to moderately decreased G3b 30-44 Moderately to severely decreased G4 15-29 Severely decreased G5 <15 Kidney failure *Relative to young adult level. In the absence of evidence of kidney damage, neither GFR category G1 nor G2 fulfill the criteria for CKD. The CKD-EPI equation is validated in individuals 18 years of age and older. Currently the best equation for estimating glomerular filtration rate (GFR) from serum creatinine in children is the Bedside Oleary equation. It is less accurate in patients with extremes of muscle mass, restriction of dietary protein, ingestion of creatine, extra-renal metabolism of creatinine, or treatment with medications that affect renal tubular creatinine secretion. GFR/1.73 sq M predicted ramona g blacks MDRD (S/P/Bld) [Vol rate/Area] 83.4 mL/min/{1.73_m2} >60 [facility] Work Phone: 1 Glucose [Mass/Vol] 127 mg/dL High 70 - 100 mg/dL [facility] Work Phone: 1 Interpretation and review of laboratory results Abnormal [facility] Work Phone: Potassium [Moles/Vol] 3.6 mmol/L 3.5 - 5.1 mmol/L [facility] Work Phone: Sodium [Moles/Vol] 137 mmol/L 135 - 145 mmol/L [facility] Work Phone: Urea nitrogen [Mass/Vol] 12 mg/dL 7 - 20 mg/dL [facility] Work Phone: 1 Test Performed by [facility], [address] [place] [address] [facility] Work Phone: CBC auto differentialon 02-2 Absolute Baso # 0.1 10*3/uL 0 - 0.2 10*3/uL [facility] Work Phone: Absolute Neut # 3.6 10*3/uL 1.8 - 7 10*3/uL [facility] Work Phone: Basophils/100 WBC (Bld) 1.0 % 0 - 2 % [facility] Work Phone: Eosinophils (Bld) [#/Vol] 0.5 10*3/uL 0 - 0.5 10*3/uL [facility] Work Phone: Eosinophils/100 WBC (Bld) 7.5 % High 1 - 6 % [facility] Work Phone: Erythrocyte distribution width (RBC) [Ratio] 14.7 % High 11.5 - 14.5 % [facility] Work Phone: Granulocytes/100 WBC (Bld) 58.1 % 40 - 80 % [facility] Work Phone: Hematocrit (Bld) [Volume fraction] 40.3 % 40 - 52 % [facility] Work Phone: Hemoglobin (Bld) [Mass/Vol] 13.8 g/dL 13 - 18 g/dL [facility] Work Phone: 1 Interpretation and review of laboratory results Abnormal [facility] Work Phone: 1 Lymphocytes (Bld) [#/Vol] 1.6 10*3/uL 1 - 4.3 10*3/uL [facility] Work Phone: Lymphocytes/100 WBC (Bld) 26.0 % 20 - 40 % [facility] Work Phone: MCH (RBC) [Entitic mass] 28.8 pg 26 - 34 pg [facility] Work Phone: MCHC (RBC) [Mass/Vol] 34.4 % 32 - 36 % [facility] Work Phone: MCV (RBC) [Entitic vol] 83.9 fL 80 - 98 fL [facility] Work Phone: Monocytes (Bld) [#/Vol] 0.5 10*3/uL 0 - 0.8 10*3/uL [facility] Work Phone: Monocytes/100 WBC (Bld) 7.4 % 2 - 10 % [facility] Work Phone: Platelet mean volume (Bld) [Entitic vol] 6.3 fL Low 7.4 - 10.4 fL [facility] Work Phone: Platelets (Bld) [#/Vol] 186 10*3/uL 140 - 440 10*3/uL [facility] Work Phone: RBC (Bld) [#/Vol] 4.80 10*6/uL 4.4 - 5.9 10*6/uL [facility] Work Phone: WBC (Bld) [#/Vol] 6.2 10*3/uL 3.6 - 10.7 10*3/uL [facility] Work Phone: Test Performed by [facility], [address] [place] [id number] [place] [address] Work Phone: Basic Metabolic Panel w/ Ref branden to MGon 06-09-2020 Anion gap [Moles/Vol] 5 mmol/L 3 - 13 mmol/L [facility] Work Phone: Calcium [Mass/Vol] 7.6 mg/dL Low 8.4 - 10. 4 mg/dL [facility] Work Phone: [phone] Chloride [Moles/Vol] 105 mmol/L 98 - 10 7 mmol/L [facility] Work Phone: [phone] CO2 [Moles/Vol] 29 mmol/L 22 - 30 mmol/L [facility] Work Phone: [phone] Creatinine [Mass/Vol] 1.21 mg/dL 0.52 - 1.25 mg/dL [facility] Work Phone: [phone] EGFR IF NonAfrican [place]i 66.2 mL/min >60 [facility] Work Phone: [phone] Comment on above: KDIGO guidelines pro vide the following GFR categories: Stage GFR(ml/min/1.73 m2) Terms G1 >=90 Normal or high G2 60-89 Mildly decreased* G3a 45-59 Mildly to moderately decreased G3b 30-44 Moderately to severely decreased G4 15-29 Severely decreased G5 <15 Kidney failure *Relative to young adult level. In the absence of evidence of kidney damage, neither GFR category G1 nor G2 fulfill the criteria for CKD. The CKD-EPI equation is validated in individuals 18 years of age and older. Currently the best equation for estimating glomerular filtration rate (GFR) from serum creatinine in children is the Bedside Oleary equation. It is less accurate in patients with extremes of muscle mass, restriction of dietary protein, ingestion of creatine, extra-renal metabolism of creatinine, or treatment with medications that affect renal tubular creatinine secretion. GFR/1.73 sq M predicted ramona g blacks MDRD (S/P/Bld) [Vol rate/Area] 76.7 mL/min/{1.73_m2} >60 [facility] Work Phone: [phone] Glucose [Mass/Vol] 145 mg/dL High 70 - 100 mg/dL [facility] Work Phone: [phone] Interpretation and review of laboratory results Abnormal [facility] Work Phone: [phone] Potassium [Moles/Vol] 3.6 mmol/L 3.5 - 5.1 mmol/L [facility] Work Phone: [phone] Sodium [Moles/Vol] 139 mmol/L 135 - 145 mmol/L [facility] Work Phone: [phone] Urea nitrogen [Mass/Vol] 15 mg/dL 7 - 20 mg/dL [facility] Work Phone: 1 Test Performed by [facility], [address] [place], [place] [address] [facility] Work Phone: 1 C. difficile toxin Molecular on 06-09-2020 C. difficile toxin Molecular NEGATIVE Methodology - Real Time PCR (ClearFit) Clinical judgement must be used when interpreting results. Positive results may reflect colonization. Indeterminate results suggest a new specimen be submitted. [facility] Work Phone: [phone] [facility] Work Phone: 1 CBC auto differentialon 05-15 Absolute Baso # 0.1 10*3/uL 0 - 0.2 10*3/uL [facility] Work Phone: 1 Absolute Neut # 4.1 10*3/uL 1.8 - 7 10*3/uL [facility] Work Phone: 1 Basophils/100 WBC (Bld) 0.9 % 0 - 2 % [facility] Work Phone: Eosinophils (Bld) [#/Vol] 0.3 10*3/uL 0 - 0.5 10*3/uL [facility] Work Phone: 1 Eosinophils/100 WBC (Bld) 4.7 % 1 - 6 % [facility] Work Phone: Erythrocyte distribution width (RBC) [Ratio] 14.4 % 11.5 - 14.5 % [facility] Work Phone: Granulocytes/100 WBC (Bld) 58.4 % 40 - 80 % [facility] Work Phone: Hematocrit (Bld) [Volume fraction] 41.6 % 40 - 52 % [facility] Work Phone: Hemoglobin (Bld) [Mass/Vol] 14.0 g/dL 13 - 18 g/dL [facility] Work Phone: 1 Interpretation and review of laboratory results Abnormal [facility] Work Phone: 1 Lymphocytes (Bld) [#/Vol] 1.9 10*3/uL 1 - 4.3 10*3/uL [facility] Work Phone: 1 Lymphocytes/100 WBC (Bld) 27.1 % 20 - 40 % [facility] Work Phone: 1 MCH (RBC) [Entitic mass] 28.4 pg 26 - 34 pg [facility] Work Phone: 1 MCHC (RBC) [Mass/Vol] 33.5 % 32 - 36 % [facility] Work Phone: MCV (RBC) [Entitic vol] 84.8 fL 80 - 98 fL [facility] Work Phone: 1 Monocytes (Bld) [#/Vol] 0.6 10*3/uL 0 - 0.8 10*3/uL [facility] Work Phone: 1 Monocytes/100 WBC (Bld) 8.9 % 2 - 10 % [facility] Work Phone: Platelet mean volume (Bld) [Entitic vol] 6.3 fL Low 7.4 - 10.4 fL [facility] Work Phone: 1 Platelets (Bld) [#/Vol] 205 10*3/uL 140 - 440 10*3/uL [facility] Work Phone: RBC (Bld) [#/Vol] 4.91 10*6/uL 4.4 - 5.9 10*6/uL [facility] Work Phone: WBC (Bld) [#/Vol] 7.1 10*3/uL 3.6 - 10.7 10*3/uL [facility] Work Phone: 1 Test Performed by [facility], [address] [place] [id number] [facility] Work Phone: Gastrointestinal Panel by SANCHEZ Gomez 06-09-2020 Gastrointestinal PCR Panel NEGATIVE: No targets were detected by the [employer] Gastrointestinal PCR Panel. _ The [employer] Gastrointestinal PCR Panel can detect the following targets: Campylobacter, Plesiomonas shigelloides, Salmonella, Vibrio species, Vibrio cholerae, Yersinia enterocolitica, Shiga toxin-producing E coli (STEC) including E coli O157, Enterotoxigenic E coli (ETEC), Shigella/Enteroinva sive E coli (EIEC), Cryptosporidium, Cyclospora cayetanensis, Entamoeba histolytica, Giardia lamblia, Adenovirus F 40/41, Astrovirus, Norovirus GI/GII, Rotavirus A, Sapovirus [facility] Work Phone: [phone] Test Performed by [facility], [address] [place] [address] [facility] Work Phone: 1 Hemoglobin and Hematocrit, B loodon 06-09-2020 Hematocrit (Bld) [Volume fraction] 42.6 % 40 - 52 % [facility] Work Phone: 1 Hemoglobin (Bld) [Mass/Vol] 14.4 g/dL 13 - 18 g/dL [facility] Work Phone: 1 Test Performed by [facility], [address] [place], [place] [address] [facility] Work Phone: 1 Hematocrit (Bld) [Volume fraction] 41.6 % 40 - 52 % [facility] Work Phone: 1 Hemoglobin (Bld) [Mass/Vol] 14.1 g/dL 13 - 18 g/dL [facility] Work Phone: 1 Test Performed by [facility], [address] [place] [address] Str. [place], [place] [address] [facility] Work Phone: 1 TYPE AND SCREENon 06-09-2020 Sodium [Moles/Vol] O [facility] Work Phone: 1 Sodium [Moles/Vol] Positive [facility] Work Phone: 1 Sodium [Moles/Vol] Negative [facility] Work Phone: 1 Test Performed by [facility], [address] [place] [address] [place], [place] [id number] [place], [place] [address]A Work Phone: [phone] CT Abdomen Pelvis Wo Contras ton 06-08-2020 Kirk, [facility] Incoming Radiology Results From [facility] - 06/08/2020 3:57 PM EST Patient Name: SOPHIE HICKS Computed Tomography ACCESSION EXAM DATE/TIME PROCEDURE ORDERING PROVIDER [id number] 06/08/2020 15:[address] Abdomen/Pelvis (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 Contiguous axial CT images were obtained from the level of the domes of the diaphragm through the level of the pubic bones without oral or intravenous contrast as per the ordering physician's request. Coronal and sagittal reconstructed CT images of the abdomen and pelvis were also obtained. Comparison was made to the study dated 06/04/2020. Scans through the lung bases reveal a 2 mm nodule posteriorly in the left lower lung (series 2, image 36). This is too small to further characterize. Scans through the abdomen and pelvis were performed. There is limited evaluation of the solid internal organs and bowel due to the lack of intravenous and oral contrast. The unenhanced liver, spleen, pancreas and adrenal glands are grossly unremarkable. There is no evidence of a renal/ureteral stone, hydronephrosis or perinephric inflammation. Small calcifications are identified within the prostate gland. There are no inflammatory changes within the mesenteric fat. There is no free air or free fluid. There are tiny fat-containing bilateral inguinal hernias. There are mild degenerative changes of the spine. There is spondylolysis at the L5 level on the left. Impression: Limited study due to the lack of contrast. 1. No evidence of a renal/ureteral stone or hydronephrosis. No evidence of inflammatory change, free air or free fluid. No significant change when compared to the previous study. 2. 2 mm left lower lung nodule which is too small to further characterize. *2017 - UPDATED [employer] GUIDELINES FOR MANAGEMENT OF SMALL PULMONARY NODULES DETECTED ON CT Note: Recommendations do not apply for lung cancer screening, patients with immunosuppression or with known cancer. Dimensions are average of long and short axis rounded to the millimeter SOLITARY NODULE: LOW RISK PATIENT <6mm - No follow up 6-8mm - 6-12 months, then consider 18-24 months >8mm - PET/CT, Bx or followup in 3 months SOLITARY NODULE: HIGH RISK PATIENT Computed Tomography Report <6mm - Optional 6-12 months (suspicious morphology or upper lobe) 6-8mm - 6-12 months, then 18-24 months >8mm - PET/CT, Bx or followup in 3 months MULTIPLE NODULES: LOW RISK PATIENT (Use most suspicious nodule to manage guidelines) All <6mm - No follow up Any >6mm - 3-6 months, then consider 18-24 months MULTIPLE NODULES: HIGH RISK PATIENT (Use most suspicious nodule to manage guidelines) All <6mm - No follow up Any >6mm - 3-6 months, then 18-24 months SUBSOLID NODULE: SINGLE GROUND GLASS OPACITY <6mm - No follow up 6mm or greater - 6-12 months, then every 2 years until 5 years SUBSOLID NODULE: PART SOLID <6mm - No follow up 6mm or greater - 3-6 months, then if solid component <6mm and unchanged every year until 5 years MULTIPLE SUBSOLID NODULES: All <6mm - 3-6 months, then if stable 24 and 48 months 6mm or greater - 3-6 months, subsequent management based upon most suspicious nodule Report Dictated on --- Final --- Dictating Physician: DO GARCIA ANTHONY Signed Date and Time: 06/08/2020 3:55 pm Signed by: DO GARCIA ANTHONY Transcribed Date and Time: 06/08/2020 3:56 [facility] Work Phone: [id number] Tom[facility] ACCESSION EXAM DATE/TIME PROCEDURE ORDERING PROVIDER [id number] 06/08/2020 15:[address] Abdomen/Pelvis (No NASRIN FINK DANIEL M PO, No IV) CPT code 06939 Reason For Exam (CT Abdomen/Pelvis (No PO, No IV)) abdominal pain, blood in stool Report Indication: Abdominal pain and bloody stools. Contiguous axial CT images were obtained from the level of the domes of the diaphragm through the level of the pubic bones without oral or intravenous contrast as per the ordering physician's request. Coronal and sagittal reconstructed CT images of the abdomen and pelvis were also obtained. Comparison was made to the study dated 06/04/2020. Scans through the lung bases reveal a 2 mm nodule posteriorly in the left lower lung (series 2, image 36). This is too small to further characterize. Scans through the abdomen and pelvis were performed. There is limited evaluation of the solid internal organs and bowel due to the lack of intravenous and oral contrast. The unenhanced liver, spleen, pancreas and adrenal glands are grossly unremarkable. There is no evidence of a renal/ureteral stone, hydronephrosis or perinephric inflammation. Small calcifications are identified within the prostate gland. There are no inflammatory changes within the mesenteric fat. There is no free air or free fluid. There are tiny fat-containing bilateral inguinal hernias. There are mild degenerative changes of the spine. There is spondylolysis at the L5 level on the left. Impression: Limited study due to the lack of contrast. 1. No evidence of a renal/ureteral stone or hydronephrosis. No evidence of inflammatory change, free air or free fluid. No significant change when compared to the previous study. 2. 2 mm left lower lung nodule which is too small to further characterize. *2017 - UPDATED [employer] GUIDELINES FOR MANAGEMENT OF SMALL PULMONARY NODULES DETECTED ON CT Note: Recommendations do not apply for lung cancer screening, patients with immunosuppression or with known cancer. Dimensions are average of long and short axis rounded to the millimeter SOLITARY NODULE: LOW RISK PATIENT <6mm - No follow up 6-8mm - 6-12 months, then consider 18-24 months >8mm - PET/CT, Bx or followup in 3 months SOLITARY NODULE: HIGH RISK PATIENT Computed Tomography Report <6mm - Optional 6-12 months (suspicious morphology or upper lobe) 6-8mm - 6-12 months, then 18-24 months >8mm - PET/CT, Bx or followup in 3 months MULTIPLE NODULES: LOW RISK PATIENT (Use most suspicious nodule to manage guidelines) All <6mm - No follow up Any >6mm - 3-6 months, then consider 18-24 months MULTIPLE NODULES: HIGH RISK PATIENT (Use most suspicious nodule to manage guidelines) All <6mm - No follow up Any >6mm - 3-6 months, then 18-24 months SUBSOLID NODULE: SINGLE GROUND GLASS OPACITY <6mm - No follow up 6mm or greater - 6-12 months, then every 2 years until 5 years SUBSOLID NODULE: PART SOLID <6mm - No follow up 6mm or greater - 3-6 months, then if solid component <6mm and unchanged every year until 5 years MULTIPLE SUBSOLID NODULES: All <6mm - 3-6 months, then if stable 24 and 48 months 6mm or greater - 3-6 months, subsequent management based upon most suspicious nodule Report Dictated on --- Final --- Dictating Physician: DO GARCIA ANTHONY Signed Date and Time: 06/08/2020 3:55 pm Signed by: DO GARCIA ANTHONY Transcribed Date and Time: 06/08/2020 3:56 [facility] Work Phone: Comprehensive Metabolic Pane tung 06-08-2020 Albumin [Mass/Vol] 3.6 g/dL 3.5 - 5 g/dL [facility] Work Phone: [phone] ALP [Catalytic activity/Vol] 57 U/L 38 - 126 U/L [facility] Work Phone: [phone] ALT [Catalytic activity/Vol] 31 U/L 0 - 49 U/L [facility] Work Phone: [phone] Comment on above: The ALT test is perf ormed by an updated assay method. Please note that the reference intervals have been changed and are now sex specific. Anion gap [Moles/Vol] 6 mmol/L 3 - 13 mmol/L [facility] Work Phone: [phone] AST [Catalytic activity/Vol] 44 U/L 15 - 46 U/L [facility] Work Phone: [phone] Bilirubin Ql (U) 0.5 mg/dL 0.2 - 1.3 mg/dL [facility] Work Phone: [phone] Calcium [Mass/Vol] 8.1 mg/dL Low 8.4 - 10. 4 mg/dL [facility] Work Phone: [phone] Chloride [Moles/Vol] 103 mmol/L 98 - 10 7 mmol/L [facility] Work Phone: CO2 [Moles/Vol] 27 mmol/L 22 - 30 mmol/L [facility] Work Phone: [phone] Creatinine [Mass/Vol] 1.22 mg/dL 0.52 - 1.25 mg/dL [facility] Work Phone: [phone] EGFR IF NonAfrican [place]i 65.6 mL/min >60 [facility] Work Phone: [phone] Comment on above: KDIGO guidelines pro vide the following GFR categories: Stage GFR(ml/min/1.73 m2) Terms G1 >=90 Normal or high G2 60-89 Mildly decreased* G3a 45-59 Mildly to moderately decreased G3b 30-44 Moderately to severely decreased G4 15-29 Severely decreased G5 <15 Kidney failure *Relative to young adult level. In the absence of evidence of kidney damage, neither GFR category G1 nor G2 fulfill the criteria for CKD. The CKD-EPI equation is validated in individuals 18 years of age and older. Currently the best equation for estimating glomerular filtration rate (GFR) from serum creatinine in children is the Bedside Oleary equation. It is less accurate in patients with extremes of muscle mass, restriction of dietary protein, ingestion of creatine, extra-renal metabolism of creatinine, or treatment with medications that affect renal tubular creatinine secretion. GFR/1.73 sq M predicted ramona g blacks MDRD (S/P/Bld) [Vol rate/Area] 76.0 mL/min/{1.73_m2} >60 [facility] Work Phone: [phone] Glucose [Mass/Vol] 162 mg/dL High 70 - 100 mg/dL [facility] Work Phone: [phone] Interpretation and review of laboratory results Abnormal [facility] Work Phone: [phone] Potassium [Moles/Vol] 3.9 mmol/L 3.5 - 5.1 mmol/L [facility] Work Phone: [phone] Protein [Mass/Vol] 6.6 g/dL 6.3 - 8.2 g/dL [facility] Work Phone: [phone] Sodium [Moles/Vol] 136 mmol/L 135 - 145 mmol/L [facility] Work Phone: [phone] Urea nitrogen [Mass/Vol] 14 mg/dL 7 - 20 mg/dL [facility] Work Phone: [phone] Hemogram (CBC) w/Auto Diffon 06-08-2020 Absolute Baso # 0.1 10*3/uL 0 - 0.2 10*3/uL [facility] Work Phone: [phone] Absolute Neut # 5.2 10*3/uL 1.8 - 7 10*3/uL [facility] Work Phone: [phone] Basophils/100 WBC (Bld) 1.0 % 0 - 2 % [facility] Work Phone: [phone] Eosinophils (Bld) [#/Vol] 0.3 10*3/uL 0 - 0.5 10*3/uL [facility] Work Phone: [phone] Eosinophils/100 WBC (Bld) 3.4 % 1 - 6 % [facility] Work Phone: [phone] Erythrocyte distribution width (RBC) [Ratio] 14.5 % 11.5 - 14.5 % [facility] Work Phone: [phone] Granulocytes/100 WBC (Bld) 64.4 % 40 - 80 % [facility] Work Phone: [phone] Hematocrit (Bld) [Volume fraction] 45.0 % 40 - 52 % [facility] Work Phone: [phone] Hemoglobin (Bld) [Mass/Vol] 15.5 g/dL 13 - 18 g/dL [facility] Work Phone: [phone] Interpretation and review of laboratory results Abnormal [facility] Work Phone: [phone] Lymphocytes (Bld) [#/Vol] 2.0 10*3/uL 1 - 4.3 10*3/uL [facility] Work Phone: [phone] Lymphocytes/100 WBC (Bld) 24.1 % 20 - 40 % [facility] Work Phone: [phone] MCH (RBC) [Entitic mass] 28.8 pg 26 - 34 pg [facility] Work Phone: [phone] MCHC (RBC) [Mass/Vol] 34.4 % 32 - 36 % [facility] Work Phone: [phone] MCV (RBC) [Entitic vol] 83.8 fL 80 - 98 fL [facility] Work Phone: [phone] Monocytes (Bld) [#/Vol] 0.6 10*3/uL 0 - 0.8 10*3/uL [facility] Work Phone: [phone] Monocytes/100 WBC (Bld) 7.1 % 2 - 10 % [facility] Work Phone: [phone] Platelet mean volume (Bld) [Entitic vol] 6.6 fL Low 7.4 - 10.4 fL [facility] Work Phone: Platelets (Bld) [#/Vol] 215 10*3/uL 140 - 440 10*3/uL [facility] Work Phone: 1 RBC (Bld) [#/Vol] 5.37 10*6/uL 4.4 - 5.9 10*6/uL [facility] Work Phone: 1 WBC (Bld) [#/Vol] 8.1 10*3/uL 3.6 - 10.7 10*3/uL [facility] Work Phone: 1 Test Performed by [facility], [address] [place] [address] [facility] Work Phone: 1 Lactic Acid, Plasmaon 2020 Lactate [Moles/Vol] 1.3 mmol/L 0.7 - 2 mmol/L [facility] Work Phone: 1 Test Performed by [facility], [address] [place] [address] [facility] Work Phone: 1 Lipaseon 06-08-2020 Lipase [Catalytic activity/Vol] 88 U/L 23 - 300 U/L [facility] Work Phone: 1 Magnesiumon 06-08-2020 Magnesium [Mass/Vol] 2.0 mg/dL 1.6 - 2 .3 mg/dL [facility] Work Phone: 1 Otheron 06-08-2020 Test Performed by [facility], [address] [place] [address] CHEMISTRY SPECIMEN SLIGHTLY HEMOLYZED. INTERPRET RESULTS WITH CAUTION. [facility] Work Phone: [phone] Urinalysison 06-08-2020 AMORPHOUS CRYSTAL Few Abnormal Negative /[HPF] [facility] Work Phone: 1 Comment on above: . Appearance (U) Clear Clear NA [facility] Work Phone: 1 Comment on above: . Bilirubin Urine Negative Negative mg/dL [facility] Work Phone: 1 Comment on above: . Color (U) Light-Yellow Lt. Yellow NA [facility] Work Phone: 1 Comment on above: . Glucose, Ur 30 mg/dL Normal (<70) [facility] Work Phone: 1 Comment on above: . Hyaline Casts, UA 3-5 Abnormal Negative /[LPF] [facility] Work Phone: 1 Comment on above: . Interpretation and review of laboratory results Abnormal [facility] Work Phone: 1 Ketones Ql (U) Negative Negative mg/dL [facility] Work Phone: 1 Comment on above: . LEUKOCYTES, UA Negative Negative Caprice/uL [facility] Work Phone: 1 Comment on above: . Mucous Threads Few Negative /[LPF] [facility] Work Phone: 1 Comment on above: . Nitrite, Urine Negative Negative NA [facility] Work Phone: 1 Comment on above: . Occult Blood,Urine 0.06 mg/dL Abnormal Negative [facility] Work Phone: 1 Comment on above: . pH (U) 6.0 [pH] [facility] Work Phone: 1 Comment on above: . Protein (U) [Mass/Vol] 300 mg/dL Abnormal Negative [facility] Work Phone: 1 Comment on above: . RBC (U) [#/Vol] 3-5 Abnormal 0 - 2 /[HPF] [facility] Work Phone: 1 Comment on above: . Specific [place], Urine 1.015 [facility] Work Phone: 1 Comment on above: . Urobilinogen, Urine Normal Normal (0-1) mg/dL [facility] Work Phone: 1 Comment on above: . WBC, UA 0-2 0 - 5 /[HPF] [facility] Work Phone: 1 Comment on above: . Test Performed by [facility], [address] [place], [place] [address] [facility] Work Phone: [phone] CBC auto differentialon 05-15 Absolute Baso # 0.0 10*3/uL 0 - 0.2 10*3/uL [facility] Work Phone: [phone] Absolute Neut # 3.0 10*3/uL 1.8 - 7 10*3/uL [facility] Work Phone: [phone] Basophils/100 WBC (Bld) 0.8 % 0 - 2 % [facility] Work Phone: [phone] Eosinophils (Bld) [#/Vol] 0.2 10*3/uL 0 - 0.5 10*3/uL [facility] Work Phone: [phone] Eosinophils/100 WBC (Bld) 3.6 % 1 - 6 % [facility] Work Phone: [phone] Erythrocyte distribution width (RBC) [Ratio] 14.5 % 11.5 - 14.5 % [facility] Work Phone: [phone] Granulocytes/100 WBC (Bld) 52.6 % 40 - 80 % [facility] Work Phone: Hematocrit (Bld) [Volume fraction] 41.6 % 40 - 52 % [facility] Work Phone: Hemoglobin (Bld) [Mass/Vol] 14.1 g/dL 13 - 18 g/dL [facility] Work Phone: [phone] Interpretation and review of laboratory results Abnormal [facility] Work Phone: 1 Lymphocytes (Bld) [#/Vol] 1.9 10*3/uL 1 - 4.3 10*3/uL [facility] Work Phone: [phone] Lymphocytes/100 WBC (Bld) 33.7 % 20 - 40 % [facility] Work Phone: MCH (RBC) [Entitic mass] 28.8 pg 26 - 34 pg [facility] Work Phone: [phone] MCHC (RBC) [Mass/Vol] 33.9 % 32 - 36 % [facility] Work Phone: 22 MCV (RBC) [Entitic vol] 85.0 fL 80 - 98 fL [facility] Work Phone: 22 Monocytes (Bld) [#/Vol] 0.5 10*3/uL 0 - 0.8 10*3/uL [facility] Work Phone: [phone] Monocytes/100 WBC (Bld) 9.3 % 2 - 10 % [facility] Work Phone: [phone] Platelet mean volume (Bld) [Entitic vol] 6.3 fL Low 7.4 - 10.4 fL [facility] Work Phone: [phone] Platelets (Bld) [#/Vol] 182 10*3/uL 140 - 440 10*3/uL [facility] Work Phone: RBC (Bld) [#/Vol] 4.89 10*6/uL 4.4 - 5.9 10*6/uL [facility] Work Phone: WBC (Bld) [#/Vol] 5.6 10*3/uL 3.6 - 10.7 10*3/uL [facility] Work Phone: Test Performed by [facility], [address] [place] [address] [facility] Work Phone: Comprehensive Metabolic Pane l w/ Reflex to MGon 06-06-2020 Albumin [Mass/Vol] 3.1 g/dL Low 3.5 - 5 g/dL [facility] Work Phone: ALP [Catalytic activity/Vol] 46 U/L 38 - 126 U/L [facility] Work Phone: ALT [Catalytic activity/Vol] 36 U/L 0 - 49 U/L [facility] Work Phone: [phone] Comment on above: The ALT test is perf ormed by an updated assay method. Please note that the reference intervals have been changed and are now sex specific. Anion gap [Moles/Vol] 6 mmol/L 3 - 13 mmol/L [facility] Work Phone: AST [Catalytic activity/Vol] 55 U/L High 15 - 46 U/L [facility] Work Phone: Bilirubin Ql (U) 0.7 mg/dL 0.2 - 1.3 mg/dL [facility] Work Phone: [phone] Calcium [Mass/Vol] 7.8 mg/dL Low 8.4 - 10. 4 mg/dL [facility] Work Phone: [phone] Chloride [Moles/Vol] 103 mmol/L 98 - 10 7 mmol/L [facility] Work Phone: [phone] CO2 [Moles/Vol] 28 mmol/L 22 - 30 mmol/L [facility] Work Phone: [phone] Creatinine [Mass/Vol] 1.25 mg/dL 0.52 - 1.25 mg/dL [facility] Work Phone: [phone] EGFR IF NonAfrican [place] 63.7 mL/min >60 [facility] Work Phone: [phone] Comment on above: KDIGO guidelines pro vide the following GFR categories: Stage GFR(ml/min/1.73 m2) Terms G1 >=90 Normal or high G2 60-89 Mildly decreased* G3a 45-59 Mildly to moderately decreased G3b 30-44 Moderately to severely decreased G4 15-29 Severely decreased G5 <15 Kidney failure *Relative to young adult level. In the absence of evidence of kidney damage, neither GFR category G1 nor G2 fulfill the criteria for CKD. The CKD-EPI equation is validated in individuals 18 years of age and older. Currently the best equation for estimating glomerular filtration rate (GFR) from serum creatinine in children is the Bedside Oleary equation. It is less accurate in patients with extremes of muscle mass, restriction of dietary protein, ingestion of creatine, extra-renal metabolism of creatinine, or treatment with medications that affect renal tubular creatinine secretion. GFR/1.73 sq M predicted ramona g blacks MDRD (S/P/Bld) [Vol rate/Area] 73.8 mL/min/{1.73_m2} >60 [facility] Work Phone: [phone] Glucose [Mass/Vol] 122 mg/dL High 70 - 100 mg/dL [facility] Work Phone: [phone] Interpretation and review of laboratory results Abnormal [facility] Work Phone: [phone] Potassium [Moles/Vol] 3.7 mmol/L 3.5 - 5.1 mmol/L [facility] Work Phone: [phone] Protein [Mass/Vol] 6.0 g/dL Low 6.3 - 8.2 g/dL [facility] Work Phone: [phone] Sodium [Moles/Vol] 138 mmol/L 135 - 145 mmol/L [facility] Work Phone: [phone] Urea nitrogen [Mass/Vol] 18 mg/dL 7 - 20 mg/dL [facility] Work Phone: [phone] Test Performed by [facility], [address] [place], [place] [address] [facility] Work Phone: 1 C3 Complementon 06-05-2020 C3 Complement 161 mg/dL 85 - 165 mg/dL [facility] Work Phone: 1 C4 Complementon 06-05-2020 C4 Complement 27 mg/dL 14 - 44 mg/dL [facility] Work Phone: 1 CBC auto differentialon 05-15 Absolute Baso # 0.1 10*3/uL 0 - 0.2 10*3/uL [facility] Work Phone: 1 Absolute Neut # 2.9 10*3/uL 1.8 - 7 10*3/uL [facility] Work Phone: [phone] 22 Basophils/100 WBC (Bld) 1.0 % 0 - 2 % [facility] Work Phone: Eosinophils (Bld) [#/Vol] 0.2 10*3/uL 0 - 0.5 10*3/uL [facility] Work Phone: [phone] Eosinophils/100 WBC (Bld) 3.5 % 1 - 6 % [facility] Work Phone: 1 Erythrocyte distribution width (RBC) [Ratio] 14.5 % 11.5 - 14.5 % [facility] Work Phone: 1 Granulocytes/100 WBC (Bld) 50.6 % 40 - 80 % [facility] Work Phone: Hematocrit (Bld) [Volume fraction] 39.4 % Low 40 - 52 % [facility] Work Phone: Hemoglobin (Bld) [Mass/Vol] 13.6 g/dL 13 - 18 g/dL [facility] Work Phone: 1 Interpretation and review of laboratory results Abnormal [facility] Work Phone: Lymphocytes (Bld) [#/Vol] 2.1 10*3/uL 1 - 4.3 10*3/uL [facility] Work Phone: 22 Lymphocytes/100 WBC (Bld) 37.3 % 20 - 40 % [facility] Work Phone: 1 22 MCH (RBC) [Entitic mass] 29.1 pg 26 - 34 pg [facility] Work Phone: 1 MCHC (RBC) [Mass/Vol] 34.6 % 32 - 36 % [facility] Work Phone: 1 MCV (RBC) [Entitic vol] 84.1 fL 80 - 98 fL [facility] Work Phone: 1 Monocytes (Bld) [#/Vol] 0.4 10*3/uL 0 - 0.8 10*3/uL [facility] Work Phone: 1 Monocytes/100 WBC (Bld) 7.6 % 2 - 10 % [facility] Work Phone: 1 Platelet mean volume (Bld) [Entitic vol] 6.6 fL Low 7.4 - 10.4 fL [facility] Work Phone: 1 Platelets (Bld) [#/Vol] 202 10*3/uL 140 - 440 10*3/uL [facility] Work Phone: 1 RBC (Bld) [#/Vol] 4.69 10*6/uL 4.4 - 5.9 10*6/uL [facility] Work Phone: 1 WBC (Bld) [#/Vol] 5.7 10*3/uL 3.6 - 10.7 10*3/uL [facility] Work Phone: [phone] Test Performed by [facility], [address] [place] [id number] [place] [address] Work Phone: 1 CT BIOPSY RENAL RIGHTon 05-15 Patient Name: SOPHIE HICKS Computed Tomography ACCESSION EXAM DATE/TIME PROCEDURE ORDERING PROVIDER [id number] 06/05/2020 14:[address] Biopsy Renal Right [id number] [facility] CPT code 86587 [id number] Reason For Exam (CT Biopsy Renal Right) renal failure Report CT-guided right kidney biopsy, 06/05/2020. Reason for procedure: Patient with renal insufficiency. Anesthesia: The procedure was performed with local anesthesia and moderate intravenous sedation. Sedation consisted of 2 mg of Versed, IV, and 100 mcg of fentanyl, IV. Sedation was administered with continuous cardiopulmonary monitoring performed by myself and independent special procedure nursing. Intra service time was 30 minutes. Complications: None immediate. Procedure details and findings: The patient's previous studies were reviewed. After obtaining informed consent, the patient was brought to the CT procedure suite and positioned prone on the CT table. Localization scanning through the abdomen was performed. The right kidney was chosen for biopsy, secondary to a slightly more superficial position. The right flank was prepped and draped in usual sterile fashion. Following administration of local anesthetic, intermittent CT guidance was used to advance a 17-gauge guide needle to the lateral cortical surface of the right kidney interpolar region. Two 18-gauge core biopsy needle specimens were obtained from the right kidney through the guide needle and submitted to pathology. The specimens were deemed to be adequate upon initial pathology review. The procedure was terminated at this point. Gelfoam slurry was administered through the guide needle to the biopsy site. The guide needle was removed. Hemostasis was achieved. Follow-up CT imaging demonstrated no evidence of significant perirenal hemorrhage. The patient tolerated the procedure well. IMPRESSION: CT-guided biopsy of right kidney. Pathology results are pending. Report Dictated on --- Final --- Dictating Physician: MD MARTINEZ JOE M Signed Date and Time: 06/05/2020 4:41 pm Signed by: MD MARTINEZ JOE M Transcribed Date and Time: 06/05/2020 4:42 [facility] Work Phone: [facility], [facility] Incoming [facility] From [facility] - 06/05/2020 4:42 PM EST Patient Name: SOPHIE HICKS Computed Tomography ACCESSION EXAM DATE/TIME PROCEDURE ORDERING PROVIDER [id number] 06/05/2020 14:[address] Biopsy Renal Right [id number] [facility] CPT code 16259 09748 Reason For Exam (CT Biopsy Renal Right) renal failure Report CT-guided right kidney biopsy, 06/05/2020. Reason for procedure: Patient with renal insufficiency. Anesthesia: The procedure was performed with local anesthesia and moderate intravenous sedation. Sedation consisted of 2 mg of Versed, IV, and 100 mcg of fentanyl, IV. Sedation was administered with continuous cardiopulmonary monitoring performed by myself and independent special procedure nursing. Intra service time was 30 minutes. Complications: None immediate. Procedure details and findings: The patient's previous studies were reviewed. After obtaining informed consent, the patient was brought to the CT procedure suite and positioned prone on the CT table. Localization scanning through the abdomen was performed. The right kidney was chosen for biopsy, secondary to a slightly more superficial position. The right flank was prepped and draped in usual sterile fashion. Following administration of local anesthetic, intermittent CT guidance was used to advance a 17-gauge guide needle to the lateral cortical surface of the right kidney interpolar region. Two 18-gauge core biopsy needle specimens were obtained from the right kidney through the guide needle and submitted to pathology. The specimens were deemed to be adequate upon initial pathology review. The procedure was terminated at this point. Gelfoam slurry was administered through the guide needle to the biopsy site. The guide needle was removed. Hemostasis was achieved. Follow-up CT imaging demonstrated no evidence of significant perirenal hemorrhage. The patient tolerated the procedure well. IMPRESSION: CT-guided biopsy of right kidney. Pathology results are pending. Report Dictated on --- Final --- Dictating Physician: MD MARTINEZ JOE M Signed Date and Time: 06/05/2020 4:41 pm Signed by: MD MARTINEZ JOE M Transcribed Date and Time: 06/05/2020 4:42 [facility] Work Phone: Comprehensive Metabolic Pane l w/ Reflex to MGon 06-05-2020 Albumin [Mass/Vol] 3.0 g/dL Low 3.5 - 5 g/dL [facility] Work Phone: ALP [Catalytic activity/Vol] 34 U/L Low 38 - 126 U/L [facility] Work Phone: ALT [Catalytic activity/Vol] 31 U/L 0 - 49 U/L [facility] Work Phone: Comment on above: The ALT test is perf ormed by an updated assay method. Please note that the reference intervals have been changed and are now sex specific. Anion gap [Moles/Vol] 5 mmol/L 3 - 13 mmol/L [facility] Work Phone: AST [Catalytic activity/Vol] 57 U/L High 15 - 46 U/L [facility] Work Phone: [phone] Bilirubin Ql (U) 0.8 mg/dL 0.2 - 1.3 mg/dL [facility] Work Phone: [phone] Calcium [Mass/Vol] 7.8 mg/dL Low 8.4 - 10. 4 mg/dL [facility] Work Phone: 1 Chloride [Moles/Vol] 108 mmol/L High 98 - 10 7 mmol/L [facility] Work Phone: CO2 [Moles/Vol] 25 mmol/L 22 - 30 mmol/L [facility] Work Phone: Creatinine [Mass/Vol] 1.13 mg/dL 0.52 - 1.25 mg/dL [facility] Work Phone: [phone] IF NonAfrican [place] 71.9 mL/min >60 [facility] Work Phone: [phone] Comment on above: KDIGO guidelines pro vide the following GFR categories: Stage GFR(ml/min/1.73 m2) Terms G1 >=90 Normal or high G2 60-89 Mildly decreased* G3a 45-59 Mildly to moderately decreased G3b 30-44 Moderately to severely decreased G4 15-29 Severely decreased G5 <15 Kidney failure *Relative to young adult level. In the absence of evidence of kidney damage, neither GFR category G1 nor G2 fulfill the criteria for CKD. The CKD-EPI equation is validated in individuals 18 years of age and older. Currently the best equation for estimating glomerular filtration rate (GFR) from serum creatinine in children is the Bedside Oleary equation. It is less accurate in patients with extremes of muscle mass, restriction of dietary protein, ingestion of creatine, extra-renal metabolism of creatinine, or treatment with medications that affect renal tubular creatinine secretion. GFR/1.73 sq M predicted ramona g blacks MDRD (S/P/Bld) [Vol rate/Area] 83.4 mL/min/{1.73_m2} >60 [facility] Work Phone: [phone] Glucose [Mass/Vol] 129 mg/dL High 70 - 100 mg/dL [facility] Work Phone: [phone] Interpretation and review of laboratory results Abnormal [facility] Work Phone: 1 Potassium [Moles/Vol] 4.0 mmol/L 3.5 - 5.1 mmol/L [facility] Work Phone: Protein [Mass/Vol] 5.7 g/dL Low 6.3 - 8.2 g/dL [facility] Work Phone: 1 Sodium [Moles/Vol] 138 mmol/L 135 - 145 mmol/L [facility] Work Phone: Urea nitrogen [Mass/Vol] 15 mg/dL 7 - 20 mg/dL [facility] Work Phone: 1 Test Performed by [facility], [address] [place], [place] [address] slight hemolysis [facility] Work Phone: 1 Hepatitis B Surface Antibody on 06-05-2020 HBV surface Ab (S) [Titer] <8.0 m[IU]/mL [facility] Work Phone: Comment on above: Interpretation: <8.0 Non-Reactive 8.0-11.9 Equivocal >= 12.0 Ab Detected Hepatitis B Surface Antigeno n 06-05-2020 Hepatitis B Surface Ag NOT DETECTED Not-D etect ed NA [facility] Work Phone: 1 Hepatitis C Antibodyon 06-05 Hepatitis C Ab NOT DETECTED Not-Detect ed NA [facility] Work Phone: 1 Comment on above: Patients with DETECT ED Hepatitis C Ab results should have a new specimen submitted for supplemental testing with a Hepatitis C Quantitative RNA assay (viral load), if clinically indicated. Otheron 06-05-2020 Test Performed by [facility], [address] [place], [place] [address] [facility] Work Phone: Test Performed by [facility], [address] [place] [address] [facility] Work Phone: Test Performed by [facility], [address] [place], [place] [address] [facility] Work Phone: T3, Freeon 06-05-2020 Free T3 [Mass/Vol] 4.24 pg/mL 2.77 - 5.27 pg/mL [facility] Work Phone: 1 Comment on above: . T4on 06-05-2020 T4 [Mass/Vol] 7.9 ug/dL 5.5 - 11 ug/dL [facility] Work Phone: 1 TSH without Reflexon 021 Interpretation and review of laboratory results Abnormal [facility] Work Phone: 1 TSH Qn 9.171 u[IU]/mL High 0.465 - 4.68 u[IU]/mL [facility] Work Phone: 1 Test Performed by [facility]any[facility], [address] [place], [place] [address] slight hemolysis [facility] Work Phone: 1 Add On Lab Teston 06-04-2020 Sodium [Moles/Vol] done [facility] Work Phone: 1 Test Performed by Banyan, [address] [place], [place] [address] [facility] Work Phone: 1 CBC Auto Differentialon 05-15 Absolute Baso # 0.1 10*3/uL 0 - 0.2 10*3/uL [facility] Work Phone: 1 Absolute Neut # 5.3 10*3/uL 1.8 - 7 10*3/uL [facility] Work Phone: 1 Basophils/100 WBC (Bld) 1.0 % 0 - 2 % S [facility] Work Phone: Eosinophils (Bld) [#/Vol] 0.2 10*3/uL 0 - 0.5 10*3/uL [facility] Work Phone: [phone] Eosinophils/100 WBC (Bld) 2.9 % 1 - 6 % [facility] Work Phone: 1 Erythrocyte distribution width (RBC) [Ratio] 14.6 % High 11.5 - 14.5 % [facility] Work Phone: Granulocytes/100 WBC (Bld) 63.0 % 40 - 80 % [facility] Work Phone: 1 Hematocrit (Bld) [Volume fraction] 43.4 % 40 - 52 % [facility] Work Phone: 1 Hemoglobin (Bld) [Mass/Vol] 15.2 g/dL 13 - 18 g/dL [facility] Work Phone: 1 Interpretation and review of laboratory results Abnormal [facility] Work Phone: 1 Lymphocytes (Bld) [#/Vol] 2.1 10*3/uL 1 - 4.3 10*3/uL [facility] Work Phone: 1 Lymphocytes/100 WBC (Bld) 24.8 % 20 - 40 % [facility] Work Phone: MCH (RBC) [Entitic mass] 29.3 pg 26 - 34 pg [facility] Work Phone: 1 MCHC (RBC) [Mass/Vol] 34.9 % 32 - 36 % [facility] Work Phone: MCV (RBC) [Entitic vol] 83.9 fL 80 - 98 fL [facility] Work Phone: Monocytes (Bld) [#/Vol] 0.7 10*3/uL 0 - 0.8 10*3/uL [facility] Work Phone: 1 Monocytes/100 WBC (Bld) 8.3 % 2 - 10 % [facility] Work Phone: Platelet mean volume (Bld) [Entitic vol] 6.4 fL Low 7.4 - 10.4 fL [facility] Work Phone: 1 Platelets (Bld) [#/Vol] 242 10*3/uL 140 - 440 10*3/uL [facility] Work Phone: RBC (Bld) [#/Vol] 5.18 10*6/uL 4.4 - 5.9 10*6/uL [facility] Work Phone: WBC (Bld) [#/Vol] 8.4 10*3/uL 3.6 - 10.7 10*3/uL [facility] Work Phone: 1 Test Performed by [facility], [address] [place] [id number] [place] [address] Work Phone: 1 CT Abdomen Pelvis Wo Contras ton 06-04-2020 Patient Name: SOPHIE HICKS Computed Tomography ACCESSION EXAM DATE/TIME PROCEDURE ORDERING PROVIDER [id number] 06/04/2020 15:[address] Abdomen/Pelvis (No [id number] -WILLIAM, GIN PO, No IV) CPT code 82924 Reason For Exam (CT Abdomen/Pelvis (No PO, No IV)) abdominal pain Report Indication: Abdominal pain. FINDINGS: Unenhanced abdomen and pelvis performed. The lung bases show no major volume loss. Within the abdomen, no free air. Bowel pattern appears nonobstructive. No free fluid or focal inflammation abscess definite diverticulitis or appendicitis. Appendix not confidently seen. No renal or collecting system calculi or bladder calculi or hydronephrosis. No adrenal mass or aneurysm. No acute paraspinous process. No gallstones or acute process of the liver spleen pancreas. No spinal compression. IMPRESSION: The etiology of patient's symptoms is not certain. No abscess free air or obstruction visualized. Limited, lack of contrast. Report Dictated on --- Final --- Dictating Physician: MD DYE JOHN Signed Date and Time: 06/04/2020 3:22 pm Signed by: MD DYE JOHN Transcribed Date and Time: 06/04/2020 3:23 [facility] Work Phone: Kirk, [facility] Incoming [facility] Results From [facility] - 06/04/2020 3:23 PM EST Patient Name: SOPHIE HICKS Computed Tomography ACCESSION EXAM DATE/TIME PROCEDURE ORDERING PROVIDER [id number] 06/04/2020 15:[address] Abdomen/Pelvis (No [id number] -WILLIAM, GIN PO, No IV) CPT code 25895 Reason For Exam (CT Abdomen/Pelvis (No PO, No IV)) abdominal pain Report Indication: Abdominal pain. FINDINGS: Unenhanced abdomen and pelvis performed. The lung bases show no major volume loss. Within the abdomen, no free air. Bowel pattern appears nonobstructive. No free fluid or focal inflammation abscess definite diverticulitis or appendicitis. Appendix not confidently seen. No renal or collecting system calculi or bladder calculi or hydronephrosis. No adrenal mass or aneurysm. No acute paraspinous process. No gallstones or acute process of the liver spleen pancreas. No spinal compression. IMPRESSION: The etiology of patient's symptoms is not certain. No abscess free air or obstruction visualized. Limited, lack of contrast. Report Dictated on --- Final --- Dictating Physician: MD DYE JOHN Signed Date and Time: 06/04/2020 3:22 pm Signed by: MD DYE JOHN Transcribed Date and Time: 06/04/2020 3:23 [facility] Work Phone: [phone] Comprehensive Metabolic Pane l w/ Reflex to MGon 06-04-2020 Albumin [Mass/Vol] 3.5 g/dL 3.5 - 5 g/dL [facility] Work Phone: [phone] ALP [Catalytic activity/Vol] 64 U/L 38 - 126 U/L [facility] Work Phone: [phone] ALT [Catalytic activity/Vol] 35 U/L 0 - 49 U/L [facility] Work Phone: [phone] Comment on above: The ALT test is perf ormed by an updated assay method. Please note that the reference intervals have been changed and are now sex specific. Anion gap [Moles/Vol] 6 mmol/L 3 - 13 mmol/L [facility] Work Phone: [phone] AST [Catalytic activity/Vol] 53 U/L High 15 - 46 U/L [facility] Work Phone: [phone] Bilirubin Ql (U) 0.6 mg/dL 0.2 - 1.3 mg/dL [facility] Work Phone: [phone] Calcium [Mass/Vol] 8.6 mg/dL 8.4 - 10. 4 mg/dL [facility] Work Phone: [phone] Chloride [Moles/Vol] 106 mmol/L 98 - 10 7 mmol/L [facility] Work Phone: [phone] CO2 [Moles/Vol] 26 mmol/L 22 - 30 mmol/L [facility] Work Phone: [phone] Creatinine [Mass/Vol] 1.08 mg/dL 0.52 - 1.25 mg/dL [facility] Work Phone: [phone] EGFR IF NonAfrican [place] 76.0 mL/min >60 [employer] Phone: [phone] Comment on above: KDIGO guidelines pro vide the following GFR categories: Stage GFR(ml/min/1.73 m2) Terms G1 >=90 Normal or high G2 60-89 Mildly decreased* G3a 45-59 Mildly to moderately decreased G3b 30-44 Moderately to severely decreased G4 15-29 Severely decreased G5 <15 Kidney failure *Relative to young adult level. In the absence of evidence of kidney damage, neither GFR category G1 nor G2 fulfill the criteria for CKD. The CKD-EPI equation is validated in individuals 18 years of age and older. Currently the best equation for estimating glomerular filtration rate (GFR) from serum creatinine in children is the Bedside Oleary equation. It is less accurate in patients with extremes of muscle mass, restriction of dietary protein, ingestion of creatine, extra-renal metabolism of creatinine, or treatment with medications that affect renal tubular creatinine secretion. GFR/1.73 sq M predicted ramona g blacks MDRD (S/P/Bld) [Vol rate/Area] 88.1 mL/min/{1.73_m2} >60 [facility] Work Phone: [phone] Glucose [Mass/Vol] 111 mg/dL High 70 - 100 mg/dL [facility] Phone: [phone] Interpretation and review of laboratory results Abnormal [facility] Work Phone: [phone] Potassium [Moles/Vol] 4.4 mmol/L 3.5 - 5.1 mmol/L [facility] Phone: [phone] Protein [Mass/Vol] 6.9 g/dL 6.3 - 8.2 g/dL [facility] Work Phone: [phone] Sodium [Moles/Vol] 138 mmol/L 135 - 145 mmol/L [facility] Phone: [phone] Urea nitrogen [Mass/Vol] 14 mg/dL 7 - 20 mg/dL [facility] Phone: [phone] Test Performed by [facility], [address] [place] [address] [facility] Work Phone: [phone] Creatinine, Random Urineon 0 06-04-2020 Creatinine (U) [Mass/Vol] 126.4 mg/dL No Range [facility] Work Phone: 1 Test Performed by [facility] [employer] [facility], [address] [place], [place] [address]A Work Phone: 1 Hemoglobin A1Con 06-04-2020 eAG 117 mg/dL [facility] Work Phone: 1 HbA1c (Bld) [Mass fraction] 5.7 % Abnormal [facility] Work Phone: 1 Comment on above: Normal less than 5.7 % Prediabetes 5.7% to 6.4% Diabetes 6.5% or higher --HgbA1C levels may not be accurate in patients who have renal disease, received recent blood transfusions, are anemic, or who have dyshemoglobinemia. Interpretation and review of laboratory results Abnormal [facility] Work Phone: 1 Test Performed by [facility], [address] [place], [place] [address]A Work Phone: 1 Lipaseon 06-04-2020 Lipase [Catalytic activity/Vol] 122 U/L 23 - 300 U/L [facility] Work Phone: 1 Test Performed by [facility], [address] [place] [address] Work Phone: 1 Protein, urine, randomon Interpretation and review of laboratory results Abnormal [facility] Work Phone: 1 Protein (U) [Mass/Vol] 1647 mg/dL High No Range [facility] Work Phone: 1 [facility], [address] [place], [place] [address]A Work Phone: 1 Protime-INRon 06-04-2020 INR Coag (PPP) [Relative time] 1.0 {INR} [facility] Work Phone: 1 Comment on above: Recommended Anticoag ulant Therapy: SEE BELOW ----- INR of 2.0 - 3.0 : - Prophylaxis of Venous Thrombosis (high-risk surgery) - Treatment of Venous Thrombosis - Treatment of Pulmonary Embolism (Includes tissue heart valves, Acute Myocardial Infarction to prevent systemic embolism, Valvular Heart Disease, and Atrial Fibrillation) ----- INR of 2.5 - 3.5 : - Mechanical Prosthetic Valves (high risk) - If oral anticoagulant therapy is used to prevent Myocardial Infarction PT Coag (PPP) [Time] 10.6 s 9 - 12 s [facility] Work Phone: [phone] Comment on above: . Test Performed by [facility], [address], [place], [place] [address] [facility] Work Phone: [phone] Urinalysison 06-04-2020 Appearance (U) Clear Clear NA [facility] Work Phone: 1 Comment on above: . Bilirubin Urine Negative Negative mg/dL [facility] Work Phone: [phone] Comment on above: . Color (U) Yellow Lt. Yellow NA [facility] Work Phone: [phone] Comment on above: . Glucose, Ur Normal Normal (<70) mg/dL [facility] Work Phone: [phone] Comment on above: . Interpretation and review of laboratory results Abnormal [facility] Work Phone: [phone] Ketones Ql (U) Negative Negative mg/dL [facility] Work Phone: [phone] Comment on above: . LEUKOCYTES, UA Negative Negative Caprice/uL [facility] Work Phone: [phone] Comment on above: . Mucous Threads Few Negative /[LPF] [facility] Work Phone: 1 Comment on above: . Nitrite, Urine Negative Negative NA [facility] Work Phone: 1 Comment on above: . Occult Blood,Urine 0.03 mg/dL Abnormal Negative [facility] Work Phone: [phone] Comment on above: . pH (U) 6.5 [pH] [facility] Work Phone: [phone] Comment on above: . Protein (U) [Mass/Vol] 600 mg/dL Abnormal Negative [facility] Work Phone: [phone] Comment on above: . RBC (U) [#/Vol] 3-5 Abnormal 0 - 2 /[HPF] [facility] Work Phone: [phone] Comment on above: . Specific Kirwin, Urine 1.023 [facility] Work Phone: [phone] Comment on above: . Squam Epithel, UA 0-2 3 - 5 /[HPF] [facility] Work Phone: [phone] Comment on above: . Urobilinogen, Urine Normal Normal (0-1) mg/dL [facility] Work Phone: [phone] Comment on above: . WBC, UA 3-5 0 - 5 /[HPF] [facility] Work Phone: [phone] Comment on above: . Test Performed by [facility], [facility] [address] [place], [place] [address] [place], [place] [address] Work Phone: [phone] Protein, 24 Hr Urineon 06-01 Interpretation and review of laboratory results Abnormal [facility] Work Phone: [phone] Protein (U) [Mass/Vol] 724[address] mg/(24.h) High 42 - 225 mg/(24.h) [facility] Work Phone: [phone] Total Volume 1900 mL [facility] Work Phone: [phone] Test Performed by [facility], [facility] [address] [place], [place] [address] [place], [place] [address] Work Phone: [facility] 05-04-2020 [facility] HNO ID: [id number] Author: Odin Doherty (Rt) Service: Radiology Author Type: 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 Type: [facility] Filed: 05/04/2020 2:49 PM Note Text: Radiology Service Progress Note PATIENT NAME: Sophie Hicks DATE OF SERVICE: May 04, 2020 TIME: 2:49 PM PATIENT IDENTITY VERIFICATION COMPLETED USING TWO (2) IDENTIFIERS: Name and Date of confirmed by patient verbally and Name and Date of confirmed by identification band. FALL SCREENING: Has the patient had 2 falls in the last year or 1 fall with injury or currently using an Ambulatory Assistive Device (Walker, Cane, Wheelchair, Crutches, etc.)? Emergency Room Patient: Screened in ED PATIENT GENDER DATA: Male PATIENT RELEVANT IMPLANT DATA REVIEWED: Not Applicable RADIOLOGY DEPARTMENT: General X-ray: Exam(s) Completed: Chest X-Ray PERIPHERAL IV DATA: Not applicable SIGNED BY: RT Hafsa May 04, 2020 2:49 PM Normal [facility] Bas Metab 2000 Pnl SerPlon 0 05-04-2020 Anion gap [Moles/Vol] 8 mmol/L Low 9-18 [facility] Comment on above: Order Comment: Speci men Type: BLOOD SPECIMEN Performed By: #### 2 4321-2, HSTNT ####[facility]ORY[facility] [id number] [place] [address] Calcium [Mass/Vol] 8.7 mg/dL Normal 8.5-10.2 [facility] Comment on above: Order Comment: Speci men Type: BLOOD SPECIMEN Performed By: #### 2 4321-2, HSTNT ####[facility]ORYCLIA [id number] [place] [address] Chloride [Moles/Vol] 105 mmol/L Normal 97-105 [facility] Comment on above: Order Comment: Speci men Type: BLOOD SPECIMEN Performed By: #### 2 4321-2, HSTNT ####[facility]ORYCLIA [id number] [place] [address] CO2 [Moles/Vol] 26 mmol/L Normal 22-30 [facility] Comment on above: Order Comment: Speci men Type: BLOOD SPECIMEN Performed By: #### 2 4321-2, HSTNT ####[facility]ORYCLIA [id number] [place] [address] Creatinine [Mass/Vol] 1.15 mg/dL Normal 0.73-1.22 [facility] Comment on above: Order Comment: Speci men Type: BLOOD SPECIMEN Performed By: #### 2 4321-2, HSTNT ####[facility] [id number] [place] [address] GFR/1.73 sq M.predicted MDRD (S/P/Bld) [Vol rate/Area] mL/min/{1.73_m2} Normal [facility] Comment on above: Order Comment: Speci men Type: BLOOD SPECIMEN Result Comment: >60 eGFR (Estimated GFR) Units of measure: mL/min/1.73 meters squared eGFR is derived from the reexpressed MDRD Study equation using the following parameters: serum creatinine, age, gender and race. The creatinine assay has been calibrated to be traceable to IDMS. An eGFR <60 mL/min/1.73m2 for >3 months is consistent with chronic kidney disease. Refer to KDOQI guidelines for clinical interpretation. In patients with unstable renal function, e.g. those with acute kidney injury, the eGFR may not accurately reflect actual GFR. Performed By: #### 2 4321-2, HSTNT ####[facility]ORYCLIA [id number] [place] [address] Glucose [Mass/Vol] 109 mg/dL High 74-99 [facility] Comment on above: Order Comment: Speci men Type: BLOOD SPECIMEN Result Comment: The [place] Diabetes Association (ADA) provides guidance for cutoff values for fasting glucose and random glucose. The ADA defines fasting as no caloric intake for at least 8 hours. Fasting plasma glucose results between 100 to 125 mg/dL indicate increased risk for diabetes (prediabetes). Fasting plasma glucose results greater than or equal to 126 mg/dL meet the criteria for diagnosis of diabetes. In the absence of unequivocal hyperglycemia, results should be confirmed by repeat testing. In a patient with classic symptoms of hyperglycemia or hyperglycemic crisis, random plasma glucose results greater than or equal to 200 mg/dL meet the criteria for diagnosis of diabetes. Reference: Standards of Medical Care in Diabetes 2016, [place] Diabetes Association. Diabetes Care. 2016.39(Suppl 1). Performed By: #### 2 4321-2, HSTNT ####[facility]ORYCLIA [id number] [place] [address] Potassium [Moles/Vol] 4.4 mmol/L Normal 3.7-5.1 [facility] Comment on above: Order Comment: Speci men Type: BLOOD SPECIMEN Performed By: #### 2 4321-2, HSTNT ####[facility]ORYCLIA [id number] [place] [address] Sodium [Moles/Vol] 139 mmol/L Normal 136-144 [facility] Comment on above: Order Comment: Speci men Type: BLOOD SPECIMEN Performed By: #### 2 4321-2, HSTNT ####[facility]ORY[facility]IA [id number] [place] [address] Urea nitrogen [Mass/Vol] 18 mg/dL Normal 9-24 [facility] Comment on above: Order Comment: Speci men Type: BLOOD SPECIMEN Performed By: #### 2 4321-2, HSTNT ####[facility]ORY[facility]IA [id number] [place] [address] CBC W Auto Diff Bldon 2020 Basophils (Bld) [#/Vol] 0.04 10*3/uL Normal <0.11 [facility] Comment on above: Order Comment: Speci men Type: BLOOD SPECIMEN Performed By: #### 5 7021-8 #### [facility] CLIA [id number] 1 [place] [address] Basophils/100 WBC (Bld) 0.4 % Normal [facility] Comment on above: Order Comment: Speci men Type: BLOOD SPECIMEN Performed By: #### 5 7021-8 #### [facility] CLIA [id number] [address] [place] [address] Differential cell count method Nom (Bld) Auto Normal [facility] Comment on above: Order Comment: Speci men Type: BLOOD SPECIMEN Performed By: #### 5 7021-8 #### [facility] CLIA [id number] [address] [place] [address] Eosinophils (Bld) [#/Vol] 0.24 10*3/uL Normal <0.46 [facility] Comment on above: Order Comment: Speci men Type: BLOOD SPECIMEN Performed By: #### 5 7021-8 #### [facility] CLIA [id number] [address] [place] [address] Eosinophils/100 WBC (Bld) 2.4 % Normal [facility] Comment on above: Order Comment: Speci men Type: BLOOD SPECIMEN Performed By: #### 5 7021-8 #### [facility] CLIA [id number] [address] [place] [address] Erythrocyte distribution width (RBC) [Ratio] 13.2 % Normal 11.5-15.0 [facility] Comment on above: Order Comment: Speci men Type: BLOOD SPECIMEN Performed By: #### 5 7021-8 #### [facility] CLIA [id number] 1 [place] [address] Hematocrit (Bld) [Volume fraction] 44.7 % Normal 39.0-51.0 [facility] Comment on above: Order Comment: Speci men Type: BLOOD SPECIMEN Performed By: #### 5 7021-8 #### [facility] CLIA [id number] 1 [place] [address] Hemoglobin (Bld) [Mass/Vol] 15.6 g/dL Normal 13.0-17. 0 [facility] Comment on above: Order Comment: Speci men Type: BLOOD SPECIMEN Performed By: #### 5 7021-8 #### [facility] CLIA [id number] [address] [place] [address] IMMATURE GRAN % 0.7 % Normal [facility] Comment on above: Order Comment: Speci men Type: BLOOD SPECIMEN Performed By: #### 5 7021-8 #### [facility] CLIA [id number] [address] [place] [address] IMMATURE GRAN ABS 0.07 k/uL Normal <0.10 [facility] Comment on above: Order Comment: Speci men Type: BLOOD SPECIMEN Performed By: #### 5 7021-8 #### [facility] CLIA [id number] 1 [place] [address] Lymphocytes (Bld) [#/Vol] 2.76 10*3/uL Normal 1.00-4.0 0 [facility] Comment on above: Order Comment: Speci men Type: BLOOD SPECIMEN Performed By: #### 5 7021-8 #### [facility] CLIA [id number] [address] [place] [address] Lymphocytes/100 WBC (Bld) 27.2 % Normal [facility] Comment on above: Order Comment: Speci men Type: BLOOD SPECIMEN Performed By: #### 5 7021-8 #### [facility] CLIA [id number] [address] [place] [address] MCH (RBC) [Entitic mass] 28.8 pg Normal 26.0-34.0 [facility] Comment on above: Order Comment: Speci men Type: BLOOD SPECIMEN Performed By: #### 5 7021-8 #### [facility] CLIA [id number] 1 [place] [address] MCHC (RBC) [Mass/Vol] 34.9 g/dL Normal 30.5-36.0 [facility] Comment on above: Order Comment: Speci men Type: BLOOD SPECIMEN Performed By: #### 5 7021-8 #### [facility] CLIA [id number] 1 [place] [address] MCV (RBC) [Entitic vol] 82.6 fL Normal 80.0-100.0 [facility] Comment on above: Order Comment: Speci men Type: BLOOD SPECIMEN Performed By: #### 5 7021-8 #### [facility] CLIA [id number] 1 [place] [address] Monocytes (Bld) [#/Vol] 0.55 10*3/uL Normal <0.87 [facility] Comment on above: Order Comment: Speci men Type: BLOOD SPECIMEN Performed By: #### 5 7021-8 #### [facility] CLIA [id number] 1 [place] [address] Monocytes/100 WBC (Bld) 5.4 % Normal [facility] Comment on above: Order Comment: Speci men Type: BLOOD SPECIMEN Performed By: #### 5 7021-8 #### [facility] CLIA [id number] 1 [place] [address] Neutrophils (Bld) [#/Vol] 6.48 10*3/uL Normal 1.45-7.5 0 [facility] Comment on above: Order Comment: Speci men Type: BLOOD SPECIMEN Performed By: #### 5 7021-8 #### [facility] CLIA [id number] [address] [place] [address] Neutrophils/100 WBC (Bld) 63.9 % Normal [facility] Comment on above: Order Comment: Speci men Type: BLOOD SPECIMEN Performed By: #### 5 7021-8 #### [facility] CLIA [id number] [address] [place] [address] Nucleated RBC (Bld) [#/Vol] 10*3/uL Normal <0.01 [facility] Comment on above: Order Comment: Speci men Type: BLOOD SPECIMEN Performed By: #### 5 7021-8 #### [facility] CLIA [id number] 1 [place] [address] Nucleated RBC/100 WBC (Bld) [Ratio] 0.0 /100 WBC Normal 0.0 [facility] Comment on above: Order Comment: Speci men Type: BLOOD SPECIMEN Performed By: #### 5 7021-8 #### [facility] CLIA [id number] 1 [place] [address] Platelet mean volume (Bld) [Entitic vol] 7.9 fL Low 9.0-12.7 [facility] Comment on above: Order Comment: Speci men Type: BLOOD SPECIMEN Performed By: #### 5 7021-8 #### [facility] CLIA [id number] 1 [place] [address] Platelets (Bld) [#/Vol] 237 10*3/uL Normal 150-400 [facility] Comment on above: Order Comment: Speci men Type: BLOOD SPECIMEN Performed By: #### 5 7021-8 #### [facility] CLIA [id number] 1 [place] [address] RBC (Bld) [#/Vol] 5.41 10*6/uL Normal 4.20-6.00 [facility] Comment on above: Order Comment: Speci men Type: BLOOD SPECIMEN Performed By: #### 5 7021-8 #### [facility] CLIA [id number] 1 [place] [address] WBC (Bld) [#/Vol] 10.14 10*3/uL Normal 3.70-11.00 [facility] Comment on above: Order Comment: Speci men Type: BLOOD SPECIMEN Performed By: #### 5 7021-8 #### [facility] CLIA [id number] [address] [place] [address] ED NOTEon 05-04-2020 ED NOTE HNO ID: [id number] Author: Zoë McphersonRn) CIRO Gomez Service: Emergency Medicine Author Type: Registered Nurse Type: ED Notes Filed: 05/04/2020 6:04 PM Note Text: Pt. States he has to leave because his has been waiting in the parking lot. [facility] ED NOTE HNO ID: [id number] Author: Zoë McphersonRn) CIRO Gomez Service: Emergency Medicine Author Type: Registered Nurse Type: ED Notes Filed: 05/04/2020 5:57 PM Note Text: Troponin drawn and sent. [facility] ED NOTE HNO ID: [id number] Author: Zoë McphersonRnGeovany Gomez RN Service: Emergency Medicine Author Type: Registered Nurse Type: ED Notes Filed: 05/04/2020 3:33 PM Note Text: Chest xray called. [facility] ED NOTE HNO ID: [id number] Author: Zoë McphersonRnGeovany Gomez RN Service: Emergency Medicine Author Type: Registered Nurse Type: ED Notes Filed: 05/04/2020 3:04 PM Note Text: VBG sent. [facility] ED NOTE HNO ID: [id number] Author: Zoë Gomez RN Service: Emergency Medicine Author Type: Registered Nurse Type: ED Notes Filed: 05/04/2020 3:04 PM Note Text: Pt. Swabbed for strep sample. 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 [facility] ED NOTE HNO ID: [id number] Author: Juanita McphersonRnGeovany Cleaning RN Service: ? Author Type: Registered Nurse Type: ED Notes Filed: 05/04/2020 2:16 PM Note Text: Bed: 42-ED Expected date: 05/04/20 Expected time: 1:24 PM Means of arrival: Vivek POWER Comments: Triage Normal [facility] ED PROV NOTEon 05-04-2020 ED PROV NOTE HNO ID: [id number] Author: Alexander Garcia Service: Emergency Medicine Author Type: Resident Type: ED Provider Notes Filed: 05/04/2020 6:49 PM Note Text: ---- Attestation signed by Sherlyn Lim MD at 05/05/2020 7:57 PM Attending Note I evaluated the patient and personally participated in the plaza components. I agree with the resident's findings and plan as documented and have discussed the case and management of the patient's care with the resident. Signature: Sherlyn Lim MD Date: 05/05/2020 Time: 7:57 PM ---- ED Resident Continuation of Care Note May 04, 2020 6:47 PM Sophie Hicks was endorsed to me by Dr. Smith. Briefly, the patient initially presented to the ED for SOB and chest pain. Signout note reviewed Clinical Course: Patient signed out to me pending third troponin. This was negative and the patient was going to be updated on results. However, prior to receiving any discharge paperwork or discussing plan of care, patient eloped. Plan:Patient eloped. Alexander Garcia, DO Alexander Garcia Resident 05/04/20 4047 Sherlyn Lim MD 05/05/201956 Normal [facility] ED PROV NOTE HNO ID: [id number] Author: Rupali Duarte MD Service: Emergency Medicine Author Type: Physician Type: ED Provider Notes Filed: 05/16/2020 10:23 PM Note Text: ED Provider Note Patient Name: Sophie Hicks SERVICE DATE: 05/04/20 History Patient presents with: Shortness of Breath: The patient states that he was just discharged from [facility] with pneumonia. The patient complains of worsening shortness of breath. Patient AANDOx3 MAEx4. The patient ambulates without difficulty. 54-year-old male status post appendectomy presents to the ED complaining of worsening shortness of breath, sore throat, nonproductive cough for the past 2 days associated with mild chest pain. Patient states he was recently diagnosed with Covid pneumonia on April 20 and was in the hospital and received Decadron and remdesivir. Patient denies any fevers, chills, diaphoresis, odynophagia, dysphagia, back pain, numbness in the upper lower extremities. PAST MEDICAL HISTORY Diagnosis Date - Acromioclavicular joint arthritis - Complete rotator cuff tear of left shoulder - Shoulder pain, left PAST SURGICAL HISTORY Procedure Laterality Date - APPENDECTOMY age 18 - PAST SURGICAL HISTORY OF 2009 anterior cervical discectomy and fusion - ROTATOR CUFF REPAIR Right approximately 2004 open FAMILY HISTORY Problem Relation Age of Onset - other (Cancer lung and throat was a smoker) Mother Social History Tobacco Use - Smoking status: Never Smoker - Smokeless tobacco: Never Used Substance and Sexual Activity - Alcohol use: Not Currently - Drug use: Never - Sexual activity: Not Currently Partners: Female ALLERGIES No Known Allergies Review of Systems Constitutional: Negative for appetite change, fever and unexpected weight change. HENT: Negative for congestion, ear pain, hearing loss, nosebleeds, rhinorrhea, sinus pressure, sinus pain, sore throat, tinnitus and trouble swallowing. Eyes: Negative for photophobia and pain. Respiratory: Positive for cough and shortness of breath. Negative for chest tightness and wheezing. Cardiovascular: Positive for chest pain. Negative for palpitations and leg swelling. Gastrointestinal: Negative for abdominal distention, abdominal pain, constipation, diarrhea, nausea and vomiting. Genitourinary: Negative for decreased urine volume, difficulty urinating, dysuria, flank pain, frequency, hematuria and urgency. Musculoskeletal: Negative for arthralgias, back pain, joint swelling, myalgias and neck pain. Allergic/Immunologi c: Negative for environmental allergies and food allergies. Neurological: Negative for dizziness, syncope, weakness, light-headedness, numbness and headaches. Psychiatric/Behavio ral: Negative for suicidal ideas. Physical Exam BP 142/106 Pulse 92 Temp (Src) 98.6 (Oral) Resp 20 Ht 6' 1 (1.85m) Wt 345 lb (156.5kg) SpO2 95% BMI 45.53 kg/(m2). O2 Therapy: Room Air Physical Exam Vitals and nursing note reviewed. Constitutional: General: He is awake. He is not in acute distress. Appearance: Normal appearance. He is well-developed. He is obese. He is not ill-appearing, toxic-appearing or diaphoretic. HENT: Head: Normocephalic and atraumatic. Right Ear: Tympanic membrane and external ear normal. Left Ear: Tympanic membrane and external ear normal. Nose: Nose normal. Mouth/Throat: Mouth: Mucous membranes are moist. Tongue: Tongue does not deviate from midline. Palate: No mass and lesions. Pharynx: Uvula midline. Posterior oropharyngeal erythema present. No pharyngeal swelling. Tonsils: No tonsillar exudate or tonsillar abscesses. Eyes: Extraocular Movements: Extraocular movements intact. Conjunctiva/sclera: Conjunctivae normal. Pupils: Pupils are equal, round, and reactive to light. Neck: Thyroid: No thyroid mass, thyromegaly or thyroid tenderness. Trachea: Trachea and phonation normal. Cardiovascular: Rate and Rhythm: Normal rate and regular rhythm. Pulses: Normal pulses. Heart sounds: Normal heart sounds. No murmur. No friction rub. No gallop. Pulmonary: Effort: Pulmonary effort is normal. No tachypnea, bradypnea, accessory muscle usage or respiratory distress. Breath sounds: Normal breath sounds. No decreased breath sounds, wheezing, rhonchi or rales. Abdominal: General: Abdomen is flat. Bowel sounds are normal. There is no distension. Palpations: Abdomen is soft. Tenderness: There is no abdominal tenderness. There is no guarding or rebound. Musculoskeletal: General: No swelling or tenderness. Normal range of motion. Cervical back: Full passive range of motion without pain, normal range of motion and neck supple. Lymphadenopathy: Cervical: No cervical adenopathy. Right cervical: No superficial, deep or posterior cervical adenopathy. Left cervical: No superficial, deep or posterior cervical adenopathy. Skin: General: Skin is warm. Capillary Refill: Capillary refill takes less than 2 seconds. Neurological: General: No focal deficit present. Mental Status: He is alert and oriented to person, place, and time. Mental status is at baseline. Cranial Nerves: No cranial nerve deficit. Motor: No weakness. Gait: Gait normal. Deep Tendon Reflexes: Reflexes normal. Psychiatric: Behavior: Behavior is cooperative. Diagnostic Testing ED Labs Ordered and Reviewed CBC + DIFF - Abnormal; Notable for the following components: Result Value Ref Range MPV 7.9 (*) 9.0 - 12.7 fL All other components within normal limits BASIC METABOLIC PNL Procedures ED Course / Clinical Impression Clinical Impressions as of May 04 1813 Pneumonia of left upper lobe due to infectious organism MDM / Disposition / Plan Patient evaluated for shortness of breath cough sore throat. Hemodynamically stable and afebrile. Speaking in full sentences. Differential diagnosis include strep throat, Covid, pneumonia unlikely retropharyngeal abscess, tonsillar abscess. EKG shows normal sinus rhythm at 90 bpm. CBC BMP unremarkable. We will get a rapid strep, VBG, troponins. BMP is unremarkable, CBC is unremarkable. VBG shows mild alkalosis with a mildly decreased PCO2 however there is base excess. EKG shows normal sinus rhythm with nonspecific T wave changes. Troponins are being trended. Rapid strep test is negative. Chest x-ray shows signs of pneumonia. Patient given albuterol for shortness of breath which did help. Patient given Tylenol, Tessalon Perles and Zofran doxycycline and Augmentin. ED Signout Note May 04, 2020 6:[address] Garcia The patient initially presented to the ED for: CP, SOB Pending items are: Consult: None Labs: Troponin Imaging: None Dispo and Plan: Patient will be discharged pending repeat troponin. If it is not elevated patient will be sent home with prescription antibiotics, Tessalon Perles. If there is acute elevation of troponin patient will need to be admitted for further cardiac work-up. Signed out in stable condition at 6:18 PM May 04, 2020. Please see Dr. Garcia note for further events and disposition. Sarabjit Smith DO SIGNATURE: DO Sarabjit Sams (AvleinoGeovany Smith Resident 05/04/20 1827 This is an attending note. I did personally examine the patient. I agree with the residents examination, assessment, plan and written documentation. Patient presents today complaining of a sore throat, a nonproductive cough, shortness of breath and generalized mild chest pain. The patient states he was recently hospitalized with Covid pneumonia. He states the symptoms have worsened over the past several days. He denies nausea or vomiting. He denies lower abdominal pain. He denies measured fever. On examination vital signs within normal limits. Patient is afebrile nontoxic. Pupils are equal, round reactive to light. Extraocular muscles are intact. Heart is regular rate and rhythm with no murmur. Lungs are clear to auscultation bilaterally. Abdomen is soft and nontender. Normal strength in all 4 limbs. Alert and oriented x3. In the emergency department an EKG shows normal sinus rhythm with no ST elevation. A CBC and electrolytes are within normal limits. High-sensitivity troponins are 14 and 12. A blood gas reveals a pH of 7.45 with a mildly decreased PCO2 suggesting mild hyperventilation. A chest x-ray reveals a left upper lobe pneumonia along with a small amount of pneumonia or atelectasis in the right midlung. Clinically the patient appears nontoxic. He is satting well on oxygen. This may be continued pneumonia from COVID-19 or may be a secondary bacterial infection. The patient will be placed on oral antibiotics. He otherwise appears nontoxic and is tolerating p.o. He does not require oxygen. He will be discharged home with close return precautions and outpatient follow-up. Rupali Duarte MD 05/16/202222 Normal [facility] ED Triage Noteon 05-04-2020 ED Triage Note HNO ID: [id number] Author: Delia Moe (Srinath) YOU Quintanilla Service: Emergency Medicine Author Type: Physician Hospice Physician Type: ED Triage Notes Filed: 05/04/2020 1:57 PM Note Text: ED INTAKE NOTE Patient Name: Sophie Hicks Service Date: 05/04/20 BRIEF HPI: Patient presents to the emergency department with a chief complaint of shortness of breath that is worsening. He was recently discharged from [facility] with pneumonia. BRIEF EXAM: Awake and Alert RRR ANDERSON Increased WOB INTAKE WORKUP: Bloodwork: CBC BMP EKG Imaging: XR: chest SIGNATURE: Delia Quintanilla PA-C Normal [facility] HIGH SENSITIVITY TROPONIN To n 05-04-2020 HIGH SENSITIVITY STEPHIE 13 ng/L High <12 [facility] Comment on above: Order Comment: Speci men Type: BLOOD SPECIMEN Result Comment: When assessing risk for acute coronary syndromes: In patients undergoing blood draw greater than or equal to 2 hours from symptom onset, with history of very low to moderate risk and non-ischemic ECG, an initial hs-Troponin T less than 12 ng/L AND a 1 hour delta hs-Troponin T less than 3 ng/L should be considered very low risk for 30 day MACE. Performed By: #### H STNT #### [facility] CLIA [id number] [address] [place] [address] HIGH SENSITIVITY STEPHIE 12 ng/L High <12 [facility] Comment on above: Order Comment: Speci men Type: BLOOD SPECIMEN Result Comment: When assessing risk for acute coronary syndromes: In patients undergoing blood draw greater than or equal to 2 hours from symptom onset, with history of very low to moderate risk and non-ischemic ECG, an initial hs-Troponin T less than 12 ng/L AND a 1 hour delta hs-Troponin T less than 3 ng/L should be considered very low risk for 30 day MACE. Performed By: #### H STNT ####[facility] [id number] [place] [address] HIGH SENSITIVITY STEPHIE 14 ng/L High <12 [facility] Comment on above: Order Comment: Speci [facility] Type: BLOOD SPECIMEN Result Comment: When assessing risk for acute coronary syndromes: In patients undergoing blood draw greater than or equal to 2 hours from symptom onset, with history of very low to moderate risk and non-ischemic ECG, an initial hs-Troponin T less than 12 ng/L AND a 1 hour delta hs-Troponin T less than 3 ng/L should be considered very low risk for 30 day MACE. Performed By: #### 2 4321-2, HSTNT ####[facility] [id number] [place] [address] PLAN OF CAREon 05-04-2020 PLAN OF CARE HNO ID: [id number] Author: Maria G Hedrick (Plastic Sheeting Cutter) Service: Pharmacy Author Type: 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 Type: Plan of Care Filed: 05/04/2020 3:52 PM Note Text: MEDICATION HISTORY Patient Name:Brant Hicks : 1965 Source of history:Patient: Reliability of source: Appears reliable, clearly identified: Medication name, Medication route and Medication frequency and Pharmacy records: [facility] [phone] Medication Nonadherence Identified: No barriers noted The above information represents the best possible medication history: Yes - Pt. states he finished some medications recently Furosemide, Prednisone and others. Additional comments: Chklu-sr-Bbmefdsvs Medication List Adjustments: Medication Regimen Changes: na Medications Added: All medications listed below. Three OTC and one albuterol inhaler. Medications Removed: meloxicam (MOBIC) 15 mg tablet methylPREDNISolone (MEDROL, JHONATHAN,) 4 mg Dose-Pack ibuprofen (MOTRIN) 800 mg tablet aspirin 81 mg chewable tablet Pt. states he does not take these medications. Short-Term Medications: na Further Clarification Required: albuterol HFA (PROVENTIL HFA, VENTOLIN HFA) 90 mcg/actuation inhaler Inhale 2 Puffs as instructed. cholecalciferol, vitamin D3, (VITAMIN D3 ORAL) Take 1 tablet by mouth once daily. ZINC ORAL Take 1 tablet by mouth once daily. These three OTC medications are being taken to build the immune system per pt. Patient is a 30 day readmission: no Patient Interested in Bedside Delivery: no Time Spent Reviewing Patient's Medications: 45 minutes Allergies: ALLERGIES No Known Allergies Preferred Pharmacy: [facility] [phone] (primary) Current [employer] Medications: Prior to Admission medications as of 02/22/20 1359 Medication Sig Last Dose Taking albuterol HFA (PROVENTIL HFA, VENTOLIN HFA) 90 mcg/actuation inhaler Inhale 2 Puffs as instructed. 05/04/2020 Yes cholecalciferol, vitamin D3, (VITAMIN D3 ORAL) Take 1 tablet by mouth once daily. 05/04/2020 Yes ZINC ORAL Take 1 tablet by mouth once daily. 05/04/2020 Yes ascorbic acid (VITAMIN C ORAL) Take 1 tablet by mouth once daily. 05/04/2020 Yes Maria G Domingokelvin ([employer]) pager [phone] phone [phone] May 04, 2020 3:45 PM Normal [facility] XR CHEST 1V FRONTALon 2020 XR CHEST 1V FRONTAL Final Report DATE OF EXAM: May 04 2020 2:49PM [id number] [id number] - XR CHEST 1V FRONTAL / PROCEDURE REASON: Shortness of breath Physician Interpretation EXAMINATION: CHEST RADIOGRAPH (SINGLE VIEW AP OR PA) CLINICAL HISTORY: Shortness of breath MQ: XC1_5 Comparison: 11/11/2019 RESULT: Lines, tubes, and devices: None. Lungs and pleura: There is elevation of the right hemidiaphragm. Left suprahilar infiltrative opacity may simply represent pulmonary vasculature although an underlying pneumonia or other process not excluded. No pleural effusion or pneumothorax. Cardiomediastinal silhouette: Normal cardiomediastinal silhouette. Other: None IMPRESSION: Left suprahilar opacity may simply represent pulmonary vasculature. However, dedicated PA and lateral radiograph is recommended to exclude pneumonia or other etiology. Stock Counter: PSCB Transcribe Date/Time: May 04 2020 2:52P Dictated by : BERRY AYALA MD This examination was interpreted and the report reviewed and electronically signed by: BERRY AYALA MD on May 04 2020 2:54PM EST Normal [facility] XR CHEST 2V FRONTAL/LATon XR CHEST 2V FRONTAL/LAT Final Report DATE OF EXAM: May 04 2020 3:46PM AKX [id number] - XR CHEST 2V FRONTAL/LAT / PROCEDURE REASON: Chest pain Physician Interpretation EXAMINATION: CHEST RADIOGRAPH (2 VIEW FRONTAL & LATERAL) CLINICAL HISTORY: Chest pain, Cough, new onset MQ: XC2_6 EXAM DATE/TIME: 05/04/2020 3:46 PM COMPARISON: 11/11/2019, 05/04/2020 RESULT: Lines, tubes, and devices: None. Lungs and pleura: Patchy left upper lobe infiltrate compatible with pneumonia. There may be a small segment of atelectasis or pneumonia along the periphery of the mid right lung as well. No sizable effusion or pneumothorax. Cardiomediastinal silhouette: Normal cardiomediastinal silhouette. Bones and soft tissues: No acute bony abnormality. IMPRESSION: Left upper lobe pneumonia along with a small segment of atelectasis or pneumonia at the mid right lung. Follow-up until resolution. Stock Counter: PSCB Transcribe Date/Time: May 04 2020 3:49P Dictated by : BERRY AYALA MD This examination was interpreted and the report reviewed and electronically signed by: BERRY AYALA MD on May 04 2020 3:51PM EST Normal [facility] C-Reactive Proteinon 021 CRP [Mass/Vol] 10.7 mg/L High 0 - 6 mg/L [place], [place] Comment on above: . CBC Auto Differentialon 04-13 Absolute Baso # 0.0 10*3/uL 0 - 0.2 10*3/uL [place] Absolute Neut # 4.8 10*3/uL 1.8 - 7 10*3/uL [place] Basophils/100 WBC (Bld) 0.4 % 0 - 2 % [place] Eosinophils (Bld) [#/Vol] 0.0 10*3/uL 0 - 0.5 10*3/uL [place] Eosinophils/100 WBC (Bld) 0.0 % Low 1 - 6 % [place] Erythrocyte distribution width (RBC) [Ratio] 14.1 % 11.5 - 14.5 % [place] Granulocytes/100 WBC (Bld) 75.8 % 40 - 80 % [place] Hematocrit (Bld) [Volume fraction] 43.0 % 40 - 52 % [place] Hemoglobin (Bld) [Mass/Vol] 14.3 g/dL 13 - 18 g/dL [place] Interpretation and review of laboratory results Abnormal [place] Lymphocytes (Bld) [#/Vol] 1.0 10*3/uL 1 - 4.3 10*3/uL [place] Lymphocytes/100 WBC (Bld) 16.6 % Low 20 - 40 % [place] MCH (RBC) [Entitic mass] 28.0 pg 26 - 34 pg [place] MCHC (RBC) [Mass/Vol] 33.3 % 32 - 36 % [place], [place] MCV (RBC) [Entitic vol] 84.2 fL 80 - 98 fL [place], [place] Monocytes (Bld) [#/Vol] 0.5 10*3/uL 0 - 0.8 10*3/uL [place] Monocytes/100 WBC (Bld) 7.2 % 2 - 10 % [place] Platelet mean volume (Bld) [Entitic vol] 6.0 fL Low 7.4 - 10.4 fL [place] Platelets (Bld) [#/Vol] 205 10*3/uL 140 - 440 10*3/uL [place] RBC (Bld) [#/Vol] 5.11 10*6/uL 4.4 - 5.9 10*6/uL [place] WBC (Bld) [#/Vol] 6.3 10*3/uL 3.6 - 10.7 10*3/uL [place] Test Performed by [facility], [address] [facility] [address] [place] [address] [place] CTA CHEST W WO CONTRASTon [place], [facility] Incoming Radiology Results From [facility] - 05/01/2020 6:08 AM EST Patient Name: SOPHIE HICKS Computed Tomography ACCESSION EXAM DATE/TIME PROCEDURE ORDERING PROVIDER [id number] 05/01/2020 05:48 EST CTA Chest w/ + w/o 5640 -MARISEL DELEON Contrast CPT code 21954 Q9967 Reason For Exam (CTA Chest w/ + w/o Contrast) chest pain, positive for covid Report CT ANGIOGRAM OF THE CHEST(PULMONARY EMBOLISM PROTOCOL): INDICATION: Chest pain. COMPARISON: 03/30/2000. CTA of the chest was performed following the IV administration of 75 cc of Isovue-370. The contrast bolus was optimized for maximal opacification of the pulmonary vascular tree. Fine section CT images were obtained from the apices through the lung bases. The study was reviewed in the axial, sagittal and coronal planes. In addition a 3-D volume rendering was processed concurrently by the radiologist and reviewed on a separate workstation. The thyroid is normal in appearance. The thoracic soft tissues are grossly normal. There is no axillary lymphadenopathy. The contrast bolus injection is satisfactory. There are no filling defects within the pulmonary vascular tree to suggest the presence of a pulmonary embolus. Evaluation of the pulmonary parenchyma demonstrates patchy bilateral groundglass infiltrates There are no effusions Evaluation of the mediastinum demonstrates no evidence of mediastinal mass or lymphadenopathy. The heart is normal in size. A limited review of the upper abdomen demonstrates no gross abnormality. IMPRESSION: The CTA of the chest is negative for pulmonary embolus, aortic aneurysm or aortic dissection. Patchy bilateral groundglass infiltrates. Commonly reported imaging features of (COVID-19) pneumonia are present. Other processes such as influenza pneumonia and organizing pneumonia, as can be seen with drug toxicity and connective tissue disease, can cause a similar imaging pattern. Computed Tomography Report Report Dictated on Workstation: [facility]-REMOTE --- Final --- Dictating Physician: DO DE LA GARZA ALFRED Signed Date and Time: 05/01/2020 6:07 am Signed by: DO DE LA GARZA ALFRED Transcribed Date and Time: 05/01/2020 6:08 [place], [place] Patient Name: SOPHIE HICKS Computed Tomography ACCESSION EXAM DATE/TIME PROCEDURE ORDERING PROVIDER [id number] 05/01/2020 05:48 EST CTA Chest w/ + w/o 5640 -MARISEL DELEON Contrast CPT code 79842 Q9967 Reason For Exam (CTA Chest w/ + w/o Contrast) chest pain, positive for covid Report CT ANGIOGRAM OF THE CHEST(PULMONARY EMBOLISM PROTOCOL): INDICATION: Chest pain. COMPARISON: 03/30/2000. CTA of the chest was performed following the IV administration of 75 cc of Isovue-370. The contrast bolus was optimized for maximal opacification of the pulmonary vascular tree. Fine section CT images were obtained from the apices through the lung bases. The study was reviewed in the axial, sagittal and coronal planes. In addition a 3-D volume rendering was processed concurrently by the radiologist and reviewed on a separate workstation. The thyroid is normal in appearance. The thoracic soft tissues are grossly normal. There is no axillary lymphadenopathy. The contrast bolus injection is satisfactory. There are no filling defects within the pulmonary vascular tree to suggest the presence of a pulmonary embolus. Evaluation of the pulmonary parenchyma demonstrates patchy bilateral groundglass infiltrates There are no effusions Evaluation of the mediastinum demonstrates no evidence of mediastinal mass or lymphadenopathy. The heart is normal in size. A limited review of the upper abdomen demonstrates no gross abnormality. IMPRESSION: The CTA of the chest is negative for pulmonary embolus, aortic aneurysm or aortic dissection. Patchy bilateral groundglass infiltrates. Commonly reported imaging features of (COVID-19) pneumonia are present. Other processes such as influenza pneumonia and organizing pneumonia, as can be seen with drug toxicity and connective tissue disease, can cause a similar imaging pattern. Computed Tomography Report Report Dictated on Workstation: [id number] --- Final --- Dictating Physician: DO DE LA GARZA ALFRED Signed Date and Time: 05/01/2020 6:07 am Signed by: DO DE LA GARZA ALFRED Transcribed Date and Time: 05/01/2020 6:08 [place] Comprehensive Metabolic Pane l w/ Reflex to MGon 05-01-2020 Albumin [Mass/Vol] 2.8 g/dL Low 3.5 - 5 g/dL [place] ALP [Catalytic activity/Vol] 49 U/L 38 - 126 U/L [place] ALT [Catalytic activity/Vol] 18 U/L 0 - 49 U/L [place] Comment on above: The ALT test is perf ormed by an updated assay method. Please note that the reference intervals have been changed and are now sex specific. Anion gap [Moles/Vol] 6 mmol/L [place] AST [Catalytic activity/Vol] 28 U/L 15 - 46 U/L [place] Bilirubin Ql (U) 0.3 mg/dL 0.2 - 1.3 mg/dL [place] Calcium [Mass/Vol] 7.4 mg/dL Low 8.4 - 10. 4 mg/dL [place] Chloride [Moles/Vol] 105 mmol/L 98 - 10 7 mmol/L [place] CO2 [Moles/Vol] 28 mmol/L 22 - 30 mmol/L [place] Creatinine [Mass/Vol] 1.19 mg/dL 0.52 - 1.25 mg/dL [place] EGFR IF NonAfrican [place] 67.6 mL/min >60 [place] Comment on above: KDIGO guidelines pro vide the following GFR categories: Stage GFR(ml/min/1.73 m2) Terms G1 >=90 Normal or high G2 60-89 Mildly decreased* G3a 45-59 Mildly to moderately decreased G3b 30-44 Moderately to severely decreased G4 15-29 Severely decreased G5 <15 Kidney failure *Relative to young adult level. In the absence of evidence of kidney damage, neither GFR category G1 nor G2 fulfill the criteria for CKD. The CKD-EPI equation is validated in individuals 18 years of age and older. Currently the best equation for estimating glomerular filtration rate (GFR) from serum creatinine in children is the Bedside Oleary equation. It is less accurate in patients with extremes of muscle mass, restriction of dietary protein, ingestion of creatine, extra-renal metabolism of creatinine, or treatment with medications that affect renal tubular creatinine secretion. GFR/1.73 sq M predicted ramona ann-marie ambriz MDRD (S/P/Bld) [Vol rate/Area] 78.4 mL/min/{1.73_m2} >60 [place] Glucose [Mass/Vol] 144 mg/dL High 70 - 100 mg/dL [place] Potassium [Moles/Vol] 4.6 mmol/L 3.5 - 5.1 mmol/L [place] Protein [Mass/Vol] 5.9 g/dL Low 6.3 - 8.2 g/dL [place] Sodium [Moles/Vol] 139 mmol/L 135 - 145 mmol/L [place] Urea nitrogen [Mass/Vol] 23 mg/dL High 7 - 20 mg/dL [place] D-Dimer, Quantitativeon 04-13 D-Dimer, Quant 0.68 mg/L High 0 - 0.5 mg/L [place] Comment on above: [employer] D-Dimer va lues of <0.50 mg/L FEU can be used in combination with a pre-test probability model (e.g. Well's) to exclude pulmonary embolism (PE) disease, as well as an aid in the diagnosis of deep vein thrombosis (DVT). Interpretation and review of laboratory results Abnormal [employer] Test Performed by [facility], [address], [place], [place] [address] [employer] EKG 12 Leadon 05-01-2020 [facility] Test Date: 2020-05-01 Pat Name: Sophie Hicks Department: 09 Room: 458 Gender: M 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: [id number] : 1965 Requested By: MARISEL DELEON Order Number: [id number] Reading MD: Venu Jarquin Measurements Intervals [place] Rate: 74 P: 50 IN: 164 QRS: 55 QRSD: 94 T: 78 QT: 392 QTc: 435 Interpretive Statements SINUS RHYTHM Compared to ECG 04/29/2020 10:57:28 Sinus tachycardia no longer present T-wave abnormality no longer present Electronically Signed On 05-01-2020 9:28:55 EST by VenuBee There [facility] Incoming Cardiology Results From [facility] - 05/01/2020 9:29 AM EST [facility] Date: 2020-05-01 Pat Name: Sophie Hicks Department: 09 Room: 458 Gender: M 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: [id number] : 1965 Requested By: MARISEL DELEON Order Number: [id number] Reading MD: Venu Jarquin Measurements Intervals [place] Rate: 74 P: 50 IN: 164 QRS: 55 QRSD: 94 T: 78 QT: 392 QTc: 435 Interpretive Statements SINUS RHYTHM Compared to ECG 04/29/2020 10:57:28 Sinus tachycardia no longer present T-wave abnormality no longer present Electronically Signed On 05-01-2020 9:28:55 EST by Venu Britton [employer] Ferritinon 05-01-2020 Ferritin [Mass/Vol] 143 ng/mL 18 - 464 ng/mL [employer] Test Performed by [facility], [address], [place], [place] [address] [employer] Lactate Dehydrogenaseon 04-13 LD 256 U/L High 120 - 246 U/L [employer] Otheron 01-19-2021 Interpretation and review of laboratory results Abnormal [place] Test Performed by [facility] [employer] [facility], [address], [place], [place] [address] [place] C-Reactive Proteinon 021 CRP [Mass/Vol] 22.3 mg/L High 0 - 6 mg/L [place] Comment on above: . CBC Auto Differentialon 04-13 Absolute Baso # 0.0 10*3/uL 0 - 0.2 10*3/uL [place] Absolute Neut # 2.4 10*3/uL 1.8 - 7 10*3/uL [place] Basophils/100 WBC (Bld) 0.5 % 0 - 2 % [place] Eosinophils (Bld) [#/Vol] 0.0 10*3/uL 0 - 0.5 10*3/uL [place] Eosinophils/100 WBC (Bld) 0.0 % Low 1 - 6 % [place] Erythrocyte distribution width (RBC) [Ratio] 14.2 % 11.5 - 14.5 % [place] Granulocytes/100 WBC (Bld) 71.3 % 40 - 80 % [place] Hematocrit (Bld) [Volume fraction] 44.5 % 40 - 52 % [place] Hemoglobin (Bld) [Mass/Vol] 14.9 g/dL 13 - 18 g/dL [place] Interpretation and review of laboratory results Abnormal [place] Lymphocytes (Bld) [#/Vol] 0.5 10*3/uL Low 1 - 4.3 10*3/uL [place] Lymphocytes/100 WBC (Bld) 15.9 % Low 20 - 40 % [place] MCH (RBC) [Entitic mass] 28.5 pg 26 - 34 pg [place] MCHC (RBC) [Mass/Vol] 33.5 % 32 - 36 % [place] MCV (RBC) [Entitic vol] 84.9 fL 80 - 98 fL [place] Monocytes (Bld) [#/Vol] 0.4 10*3/uL 0 - 0.8 10*3/uL [place] Monocytes/100 WBC (Bld) 12.3 % High 2 - 10 % [place] Platelet mean volume (Bld) [Entitic vol] 5.9 fL Low 7.4 - 10.4 fL [place] Platelets (Bld) [#/Vol] 185 10*3/uL 140 - 440 10*3/uL [place] RBC (Bld) [#/Vol] 5.23 10*6/uL 4.4 - 5.9 10*6/uL [place] WBC (Bld) [#/Vol] 3.3 10*3/uL Low 3.6 - 10.7 10*3/uL [place] Test Performed by [facility] [employer] [facility], [address], [place], [place] [address] [place] Comprehensive Metabolic Pane l w/ Reflex to MGon 04-30-2020 Albumin [Mass/Vol] 2.6 g/dL Low 3.5 - 5 g/dL [place] ALP [Catalytic activity/Vol] 54 U/L 38 - 126 U/L [place] ALT [Catalytic activity/Vol] 21 U/L 0 - 49 U/L [place] Comment on above: The ALT test is perf ormed by an updated assay method. Please note that the reference intervals have been changed and are now sex specific. Anion gap [Moles/Vol] 5 mmol/L [place] AST [Catalytic activity/Vol] 37 U/L 15 - 46 U/L [place] Bilirubin Ql (U) 0.5 mg/dL 0.2 - 1.3 mg/dL [place] Calcium [Mass/Vol] 7.5 mg/dL Low 8.4 - 10. 4 mg/dL [place] Chloride [Moles/Vol] 107 mmol/L 98 - 10 7 mmol/L [place] CO2 [Moles/Vol] 21 mmol/L Low 22 - 30 mmol/L [place] Creatinine [Mass/Vol] 1.23 mg/dL 0.52 - 1.25 mg/dL [place] EGFR IF NonAfrican [place] 65.0 mL/min >60 [place] Comment on above: KDIGO guidelines pro vide the following GFR categories: Stage GFR(ml/min/1.73 m2) Terms G1 >=90 Normal or high G2 60-89 Mildly decreased* G3a 45-59 Mildly to moderately decreased G3b 30-44 Moderately to severely decreased G4 15-29 Severely decreased G5 <15 Kidney failure *Relative to young adult level. In the absence of evidence of kidney damage, neither GFR category G1 nor G2 fulfill the criteria for CKD. The CKD-EPI equation is validated in individuals 18 years of age and older. Currently the best equation for estimating glomerular filtration rate (GFR) from serum creatinine in children is the Bedside Oleary equation. It is less accurate in patients with extremes of muscle mass, restriction of dietary protein, ingestion of creatine, extra-renal metabolism of creatinine, or treatment with medications that affect renal tubular creatinine secretion. GFR/1.73 sq M predicted ramona ann-marie ambriz MDRD (S/P/Bld) [Vol rate/Area] 75.3 mL/min/{1.73_m2} >60 [place] Glucose [Mass/Vol] 144 mg/dL High 70 - 100 mg/dL [place] Potassium [Moles/Vol] 4.4 mmol/L 3.5 - 5.1 mmol/L [place] Protein [Mass/Vol] 6.0 g/dL Low 6.3 - 8.2 g/dL [place] Sodium [Moles/Vol] 133 mmol/L Low 135 - 145 mmol/L [place] Urea nitrogen [Mass/Vol] 20 mg/dL 7 - 20 mg/dL [place] D-Dimer, Quantitativeon 04-13 D-Dimer, Quant 0.87 mg/L High 0 - 0.5 mg/L [place] Comment on above: [employer] D-Dimer va lues of <0.50 mg/L FEU can be used in combination with a pre-test probability model (e.g. Well's) to exclude pulmonary embolism (PE) disease, as well as an aid in the diagnosis of deep vein thrombosis (DVT). Interpretation and review of laboratory results Abnormal [employer] Test Performed by [facility], [address], [place], [place] [address] [employer] EKG 12 Lead - Chest Painon 0 04-30-2020 [facility] Test Date: 2020-04-29 Pat Name: Sophie Hicks Department: 01 Room: 458 Gender: M 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: : 1965 Requested By: VANESSA MILES Order Number: [id number] Reading MD: Joel Davila Measurements Intervals [place] Rate: 101 P: 29 IN: 144 QRS: 56 QRSD: 82 T: 105 QT: 312 QTc: 405 Interpretive Statements SINUS TACHYCARDIA NONSPECIFIC T ABNORMALITIES, LATERAL LEADS BASELINE WANDER IN LEAD(S) V5 Compared to ECG 04/21/2020 00:49:11 Sinus rhythm no longer present T-wave abnormality still present Electronically Signed On 04-30-2020 8:15:30 EST by Joel Davila [employer] [facility] Incoming Cardiology Results From [facility] - 04/30/2020 8:16 AM EST [facility] Test Date: 2020-04-29 Pat Name: Sophie Hicks Department: Room: 458 Gender: M 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: : 1965 Requested By: VANESSA MILES Order Number: [id number] Reading : Joel Davila Measurements Intervals [place] Rate: 101 P: 29 IN: 144 QRS: 56 QRSD: 82 T: 105 QT: 312 QTc: 405 Interpretive Statements SINUS TACHYCARDIA NONSPECIFIC T ABNORMALITIES, LATERAL LEADS BASELINE WANDER IN LEAD(S) V5 Compared to ECG 04/21/2020 00:49:11 Sinus rhythm no longer present T-wave abnormality still present Electronically Signed On 04-30-2020 8:15:30 EST by Joel Davila [employer] Ferritinon 04-30-2020 Ferritin [Mass/Vol] 159 ng/mL 18 - 464 ng/mL [employer] Test Performed by [facility], [address], [place], [place] [address] [employer] Lactate Dehydrogenaseon 04-13 LD 285 U/L High 120 - 246 U/L [place] Otheron 04-30-2020 Interpretation and review of laboratory results Abnormal [place] Test Performed by [facility], [address], [place], [place] [address] [place] Troponinon 04-30-2020 Troponin I.cardiac [Mass/Vol] ng/mL 0 - 0.034 ng/mL [place] Comment on above: . Test Performed by [facility], [address], [place], [place] [address] [place] Vitamin D 25 Hydroxyon 04-30 Interpretation and review of laboratory results Abnormal [place] Vit D, 25-Hydroxy <13 Low 30 - 100 ng/mL [place] Comment on above: Therapy is based on measurement of Total 25-OHD with the following classification levels: Less than 20 ng/mL: Indicative of Vit D deficiency 20-30 ng/mL: Suggests Vit D insufficiency Optimal: Greater than or equal to 30 ng/mL Test performed by [employer] Immuno[employer], measuring Total Vitamin D, not individual fractions. Test Performed by [facility], [address], [place], [place] [address] [place] Brain Natriuretic Peptideon 04-29-2020 Natriuretic peptide B (Bld) [Mass/Vol] 48 pg/mL 0 - 125 pg/mL [place] C-Reactive Proteinon 021 CRP [Mass/Vol] 28.5 mg/L High 0 - 6 mg/L [place] Comment on above: . Comprehensive Metabolic Pane tung 04-29-2020 Albumin [Mass/Vol] 2.7 g/dL Low 3.5 - 5 g/dL [place] ALP [Catalytic activity/Vol] 53 U/L 38 - 126 U/L [place] ALT [Catalytic activity/Vol] 24 U/L 0 - 49 U/L [place] Comment on above: The ALT test is perf ormed by an updated assay method. Please note that the reference intervals have been changed and are now sex specific. Anion gap [Moles/Vol] 5 mmol/L [place] AST [Catalytic activity/Vol] 40 U/L 15 - 46 U/L [place] Bilirubin Ql (U) 0.4 mg/dL 0.2 - 1.3 mg/dL [place] Calcium [Mass/Vol] 7.6 mg/dL Low 8.4 - 10. 4 mg/dL [place] Chloride [Moles/Vol] 103 mmol/L 98 - 10 7 mmol/L [place] CO2 [Moles/Vol] 25 mmol/L 22 - 30 mmol/L [place] Creatinine [Mass/Vol] 1.31 mg/dL High 0.52 - 1.25 mg/dL [place] EGFR IF NonAfrican [place] 60.2 mL/min >60 [place] Comment on above: KDIGO guidelines pro vide the following GFR categories: Stage GFR(ml/min/1.73 m2) Terms G1 >=90 Normal or high G2 60-89 Mildly decreased* G3a 45-59 Mildly to moderately decreased G3b 30-44 Moderately to severely decreased G4 15-29 Severely decreased G5 <15 Kidney failure *Relative to young adult level. In the absence of evidence of kidney damage, neither GFR category G1 nor G2 fulfill the criteria for CKD. The CKD-EPI equation is validated in individuals 18 years of age and older. Currently the best equation for estimating glomerular filtration rate (GFR) from serum creatinine in children is the Bedside Oleary equation. It is less accurate in patients with extremes of muscle mass, restriction of dietary protein, ingestion of creatine, extra-renal metabolism of creatinine, or treatment with medications that affect renal tubular creatinine secretion. GFR/1.73 sq M predicted ramona g blacks MDRD (S/P/Bld) [Vol rate/Area] 69.8 mL/min/{1.73_m2} >60 [place] Glucose [Mass/Vol] 110 mg/dL High 70 - 100 mg/dL [place] Interpretation and review of laboratory results Abnormal [place] Potassium [Moles/Vol] 3.9 mmol/L 3.5 - 5.1 mmol/L [place] Protein [Mass/Vol] 5.8 g/dL Low 6.3 - 8.2 g/dL [place] Sodium [Moles/Vol] 134 mmol/L Low 135 - 145 mmol/L [place] Urea nitrogen [Mass/Vol] 17 mg/dL 7 - 20 mg/dL [place] Test [facility], [address], [address] D-Dimer, Quantitativeon 04-13 D-Dimer, Quant 1.09 mg/L High 0 - 0.5 mg/L [place] Comment on above: [employer] D-Dimer va lues of <0.50 mg/L FEU can be used in combination with a pre-test probability model (e.g. Well's) to exclude pulmonary embolism (PE) disease, as well as an aid in the diagnosis of deep vein thrombosis (DVT). Interpretation and review of laboratory results Abnormal [place] Test Performed by [facility], [address], [address] Ferritinon 04-29-2020 Ferritin [Mass/Vol] 186 ng/mL 18 - 464 ng/mL [place] Test [facility]formed by [facility], [address], [address] Hemogram (CBC) w/Auto Diffon 04-29-2020 Absolute Baso # 0.0 10*3/uL 0 - 0.2 10*3/uL [place] Absolute Neut # 3.4 10*3/uL 1.8 - 7 10*3/uL [place] Basophils/100 WBC (Bld) 0.5 % 0 - 2 % [place] Eosinophils (Bld) [#/Vol] 0.1 10*3/uL 0 - 0.5 10*3/uL [place] Eosinophils/100 WBC (Bld) 1.3 % 1 - 6 % [place] Erythrocyte distribution width (RBC) [Ratio] 14.1 % 11.5 - 14.5 % [place] Granulocytes/100 WBC (Bld) 65.6 % 40 - 80 % [place] Hematocrit (Bld) [Volume fraction] 43.7 % 40 - 52 % [place] Hemoglobin (Bld) [Mass/Vol] 14.9 g/dL 13 - 18 g/dL [place] Interpretation and review of laboratory results Abnormal [place] Lymphocytes (Bld) [#/Vol] 1.1 10*3/uL 1 - 4.3 10*3/uL [place] Lymphocytes/100 WBC (Bld) 21.2 % 20 - 40 % [place] MCH (RBC) [Entitic mass] 28.6 pg 26 - 34 pg [place] MCHC (RBC) [Mass/Vol] 34.2 % 32 - 36 % [place] MCV (RBC) [Entitic vol] 83.6 fL 80 - 98 fL [place] Monocytes (Bld) [#/Vol] 0.6 10*3/uL 0 - 0.8 10*3/uL [place] Monocytes/100 WBC (Bld) 11.4 % High 2 - 10 % [place] Platelet mean volume (Bld) [Entitic vol] 5.8 fL Low 7.4 - 10.4 fL [place] Platelets (Bld) [#/Vol] 181 10*3/uL 140 - 440 10*3/uL [place] RBC (Bld) [#/Vol] 5.23 10*6/uL 4.4 - 5.9 10*6/uL [place] WBC (Bld) [#/Vol] 5.2 10*3/uL 3.6 - 10.7 10*3/uL [place] Test [facility], [address], [place], [place] [address] [place] Lactate Dehydrogenaseon 04-13 LD 290 U/L High 120 - 246 U/L [place] Lactic Acid, Plasmaon 2020 Lactate [Moles/Vol] 0.8 mmol/L 0.7 - 2 mmol/L [place] Test [facility], [address], [place], [place] [address] [facility] GISELA Otheron 04-29-2020 Interpretation and review of laboratory results Abnormal [place] Test Performed by [facility], [address], [place], [place] [address] [facility] GISELA Test Performed by [facility], [address], [place], [place] [address] [place] Procalcitoninon 04-29-2020 Interpretation and review of laboratory results Abnormal [place] Procalcitonin 0.1 ng/mL Abnormal <0.10 [place] Sodium [Moles/Vol] See Below [place] Comment on above: PCT <0.50 = Low risk of severe sepsis and/or septic shock. PCT >2.00 = High risk of severe sepsis and/or septic shock. Test Performed by [facility], [address] [place] [address] [place] Troponin x1on 04-29-2020 Troponin I.cardiac [Mass/Vol] ng/mL 0 - 0.034 ng/mL [place] Comment on above: . XR CHEST PORTABLEon 04-29-19 [facility] Incoming Radiology Results From [facility] 04/29/2020 11:53 AM EST Patient Name: SOPHIE HICKS Diagnostic Radiology ACCESSION EXAM DATE/TIME PROCEDURE ORDERING PROVIDER [id number] 04/29/2020 11:40 EST CR Chest Portable SRINATH MILES AMY L CPT code 86834 Reason For Exam (CR Chest Portable) COVID Report Portable chest 04/29/2020: Clinical Information: Covid. Findings: A single AP portable view of the chest was obtained at 1139 hours. Comparison was made to the prior study 04/21/2020. The trachea is midline. The heart is not enlarged. There is an evolving infiltrate in the left midlung field. There is an element of underlying obstructive lung disease. Report Dictated on --- Final --- Dictating Physician: MD JENNI, ADALID Signed Date and Time: 04/29/2020 11:52 am Signed by: MD ARTEAGA RISA Transcribed Date and Time: 04/29/2020 11:53 [place] Patient Name: SOPHIE HICKS Diagnostic Radiology ACCESSION EXAM DATE/TIME PROCEDURE ORDERING PROVIDER [id number] 04/29/2020 11:40 EST CR Chest Portable SRINATH MILES AMY L CPT code 38902 Reason For Exam (CR Chest Portable) COVID Report Portable chest 04/29/2020: Clinical Information: Covid. Findings: A single AP portable view of the chest was obtained at 1139 hours. Comparison was made to the prior study 04/21/2020. The trachea is midline. The heart is not enlarged. There is an evolving infiltrate in the left midlung field. There is an element of underlying obstructive lung disease. Report Dictated on --- Final --- Dictating Physician: MD ARTEAGA RISA Signed Date and Time: 04/29/2020 11:52 am Signed by: MD ARTEAGA RISA Transcribed Date and Time: 04/29/2020 11:53 [place] Add On Lab Teston 04-21-2020 Sodium [Moles/Vol] Accepted [place] Comment on above: Specimen available & acceptable for analysis. Test [facility], [address] [place] [address] [place] Basic Metabolic Panelon Anion gap [Moles/Vol] 8 mmol/L [place] Calcium [Mass/Vol] 8.3 mg/dL Low 8.4 - 10. 4 mg/dL [place] Chloride [Moles/Vol] 106 mmol/L 98 - 10 7 mmol/L [place] CO2 [Moles/Vol] 23 mmol/L 22 - 30 mmol/L [place] Creatinine [Mass/Vol] 1.12 mg/dL 0.52 - 1.25 mg/dL [place] EGFR IF NonAfrican [place] 72.8 mL/min >60 [place] Comment on above: KDIGO guidelines pro vide the following GFR categories: Stage GFR(ml/min/1.73 m2) Terms G1 >=90 Normal or high G2 60-89 Mildly decreased* G3a 45-59 Mildly to moderately decreased G3b 30-44 Moderately to severely decreased G4 15-29 Severely decreased G5 <15 Kidney failure *Relative to young adult level. In the absence of evidence of kidney damage, neither GFR category G1 nor G2 fulfill the criteria for CKD. The CKD-EPI equation is validated in individuals 18 years of age and older. Currently the best equation for estimating glomerular filtration rate (GFR) from serum creatinine in children is the Bedside Oleary equation. It is less accurate in patients with extremes of muscle mass, restriction of dietary protein, ingestion of creatine, extra-renal metabolism of creatinine, or treatment with medications that affect renal tubular creatinine secretion. GFR/1.73 sq M predicted ramona g katina MDRD (S/P/Bld) [Vol rate/Area] 84.3 mL/min/{1.73_m2} >60 [place] Glucose [Mass/Vol] 139 mg/dL High 70 - 100 mg/dL [place] Interpretation and review of laboratory results Abnormal [place] Potassium [Moles/Vol] 4.0 mmol/L 3.5 - 5.1 mmol/L [place] Sodium [Moles/Vol] 137 mmol/L 135 - 145 mmol/L [place] Urea nitrogen [Mass/Vol] 17 mg/dL 7 - 20 mg/dL [place] Hemogram (CBC) w/Auto Diffon 04-21-2020 Absolute Baso # 0.0 10*3/uL 0 - 0.2 10*3/uL [place] Absolute Neut # 2.6 10*3/uL 1.8 - 7 10*3/uL [place] Basophils/100 WBC (Bld) 0.9 % 0 - 2 % [place] Eosinophils (Bld) [#/Vol] 0.2 10*3/uL 0 - 0.5 10*3/uL [place] Eosinophils/100 WBC (Bld) 4.4 % 1 - 6 % [place] Erythrocyte distribution width (RBC) [Ratio] 14.5 % 11.5 - 14.5 % [place] Granulocytes/100 WBC (Bld) 52.5 % 40 - 80 % [place] Hematocrit (Bld) [Volume fraction] 44.2 % 40 - 52 % [place] Hemoglobin (Bld) [Mass/Vol] 15.0 g/dL 13 - 18 g/dL [place] Interpretation and review of laboratory results Abnormal [place] Lymphocytes (Bld) [#/Vol] 1.4 10*3/uL 1 - 4.3 10*3/uL [place] Lymphocytes/100 WBC (Bld) 28.8 % 20 - 40 % [place] MCH (RBC) [Entitic mass] 28.9 pg 26 - 34 pg [place] MCHC (RBC) [Mass/Vol] 33.9 % 32 - 36 % [place] MCV (RBC) [Entitic vol] 85.4 fL 80 - 98 fL [place] Monocytes (Bld) [#/Vol] 0.7 10*3/uL 0 - 0.8 10*3/uL [place] Monocytes/100 WBC (Bld) 13.4 % High 2 - 10 % [place] Platelet mean volume (Bld) [Entitic vol] 6.3 fL Low 7.4 - 10.4 fL [place] Platelets (Bld) [#/Vol] 206 10*3/uL 140 - 440 10*3/uL [place] RBC (Bld) [#/Vol] 5.18 10*6/uL 4.4 - 5.9 10*6/uL [place] WBC (Bld) [#/Vol] 4.9 10*3/uL 3.6 - 10.7 10*3/uL [place] Test Performed by [facility], [address], [place], [place] [address] [place] Magnesiumon 04-21-2020 Magnesium [Mass/Vol] 1.8 mg/dL 1.6 - 2 .3 mg/dL [place] Otheron 04-21-2020 Test Performed by [facility], [address], [place], [place] [address] [place] Troponinon 04-21-2020 Troponin I.cardiac [Mass/Vol] ng/mL 0 - 0.034 ng/mL [place] Comment on above: . [facility], [address], [place], [place] [address] [place] Urinalysison 04-21-2020 Appearance (U) Clear Clear NA [place] Comment on above: . Bacteria, UA Few Abnormal Negative /[HPF] [place] Comment on above: . Bilirubin Urine Negative Negative mg/dL [place] Comment on above: . Color (U) Light-Yellow Lt. Yellow [place], [place] Comment on above: . Glucose, Ur 50 mg/dL Normal (<70) [place] Comment on above: . Interpretation and review of laboratory results Abnormal [place] Ketones Ql (U) Negative Negative mg/dL [place] Comment on above: . LEUKOCYTES, UA Negative Negative Caprice/uL [place] Comment on above: . Mucous Threads Few Negative /[LPF] [place] Comment on above: . Nitrite, Urine Negative Negative NA [place] Comment on above: . Occult Blood,Urine 0.1 mg/dL Abnormal Negative [place] Comment [place] above: . pH (U) 6.5 [pH] [place] Comment on above: . Protein (U) [Mass/Vol] 600 mg/dL Abnormal Negative Me [place], [place] Comment on above: . RBC (U) [#/Vol] 3-5 Abnormal 0 - 2 /[HPF] [place] Comment on above: . Specific [place], Urine 1.023 [place] Comment on above: . Squam Epithel, UA 0-2 3 - 5 /[HPF] [place] Comment on above: . Urobilinogen, Urine Normal Normal (0-1) mg/dL [place] Comment on above: . WBC, UA 0-2 0 - 5 /[HPF] [place] Comment on above: . Test Performed by [facility] [employer] [facility], [address], [place], [place] [address] [place] XR CHEST (2 VW)on 04-21-2020 Kirk, [facility] Incoming Radiology Results From [employer] - 04/21/2020 2:16 AM EST Patient Name: SOPHIE HICKS Diagnostic Radiology ACCESSION EXAM DATE/TIME PROCEDURE ORDERING PROVIDER [id number] 04/21/2020 01:47 EST CR Chest PA & LAT [id number] -KIBE, JULIANNE CPT code 82138 Reason For Exam (CR Chest PA & LAT) concern for PNA Report CHEST: CLINICAL INDICATION: Cough and pneumonia TECHNIQUE: AP and Lateral COMPARISON: 03/30/2020 FINDINGS: Exam quality: Limited due to patient's body habitus. EKG leads overlie the chest. Artifact overlies the left side of the chest on the AP view. The heart and mediastinum are normal. There is no definite consolidation or atelectasis. There is no evidence for pleural effusion. Degenerative change of the thoracic spine is noted. IMPRESSION: No acute abnormality. Report Dictated on Workstation: [id number] --- Final --- Dictating Physician: MD HERZOG JEFFREY Signed Date and Time: 04/21/2020 2:15 am Signed by: MD HERZOG JEFFREY Transcribed Date and Time: 04/21/2020 2:16 [place] Patient Name: SOPHIE HICKS Diagnostic Radiology ACCESSION EXAM DATE/TIME PROCEDURE ORDERING PROVIDER [id number] 04/21/2020 01:47 EST CR Chest PA & LAT [id number] -KIBE, JULIANNE CPT code 57471 Reason For Exam (CR Chest PA & LAT) concern for PNA Report CHEST: CLINICAL INDICATION: Cough and pneumonia TECHNIQUE: AP and Lateral COMPARISON: 03/30/2020 FINDINGS: Exam quality: Limited due to patient's body habitus. EKG leads overlie the chest. Artifact overlies the left side of the chest on the AP view. The heart and mediastinum are normal. There is no definite consolidation or atelectasis. There is no evidence for pleural effusion. Degenerative change of the thoracic spine is noted. IMPRESSION: No acute abnormality. Report Dictated on Workstation: [facility]-REMOTE --- Final --- Dictating Physician: MD HERZOG JEFFREY Signed Date and Time: 04/21/2020 2:15 am Signed by: MD HERZOG JEFFREY Transcribed Date and Time: 04/21/2020 2:16 [place] Basic Metabolic Panelon 12- Anion gap [Moles/Vol] 5 mmol/L [place] Calcium [Mass/Vol] 8.1 mg/dL Low 8.4 - 10. 4 mg/dL [place] Chloride [Moles/Vol] 104 mmol/L 98 - 10 7 mmol/L [place] CO2 [Moles/Vol] 28 mmol/L 22 - 30 mmol/L [place] Creatinine [Mass/Vol] 1.18 mg/dL 0.52 - 1.25 mg/dL [place] EGFR IF NonAfrican [place]i 68.3 mL/min >60 [place] Comment on above: KDIGO guidelines pro vide the following GFR categories: Stage GFR(ml/min/1.73 m2) Terms G1 >=90 Normal or high G2 60-89 Mildly decreased* G3a 45-59 Mildly to moderately decreased G3b 30-44 Moderately to severely decreased G4 15-29 Severely decreased G5 <15 Kidney failure *Relative to young adult level. In the absence of evidence of kidney damage, neither GFR category G1 nor G2 fulfill the criteria for CKD. The CKD-EPI equation is validated in individuals 18 years of age and older. Currently the best equation for estimating glomerular filtration rate (GFR) from serum creatinine in children is the Bedside Oleary equation. It is less accurate in patients with extremes of muscle mass, restriction of dietary protein, ingestion of creatine, extra-renal metabolism of creatinine, or treatment with medications that affect renal tubular creatinine secretion. GFR/1.73 sq M predicted ramona g blacks MDRD (S/P/Bld) [Vol rate/Area] 79.2 mL/min/{1.73_m2} >60 [place] Glucose [Mass/Vol] 120 mg/dL High 70 - 100 mg/dL [place] Interpretation and review of laboratory results Abnormal [place] Potassium [Moles/Vol] 4.2 mmol/L 3.5 - 5.1 mmol/L [place] Sodium [Moles/Vol] 136 mmol/L 135 - 145 mmol/L [place] Urea nitrogen [Mass/Vol] 16 mg/dL 7 - 20 mg/dL [place] Test Performed by [facility] [employer] [facility], [address], [place], [place] [address] [place] Brain Natriuretic Peptideon 03-30-2020 Natriuretic peptide B (Bld) [Mass/Vol] 107 pg/mL 0 - 125 pg/mL [place] CBC Auto Differentialon 03-13 Absolute Baso # 0.1 10*3/uL 0 - 0.2 10*3/uL [place] Absolute Neut # 4.9 10*3/uL 1.8 - 7 10*3/uL [place] Basophils/100 WBC (Bld) 1.2 % 0 - 2 % [place] Eosinophils (Bld) [#/Vol] 0.3 10*3/uL 0 - 0.5 10*3/uL [place] Eosinophils/100 WBC (Bld) 4.0 % 1 - 6 % [place] Erythrocyte distribution width (RBC) [Ratio] 14.3 % 11.5 - 14.5 % [place] Granulocytes/100 WBC (Bld) 63.0 % 40 - 80 % [place] Hematocrit (Bld) [Volume fraction] 42.4 % 40 - 52 % [place] Hemoglobin (Bld) [Mass/Vol] 14.6 g/dL 13 - 18 g/dL [place] Interpretation and review of laboratory results Abnormal [place] Lymphocytes (Bld) [#/Vol] 2.0 10*3/uL 1 - 4.3 10*3/uL [place] Lymphocytes/100 WBC (Bld) 25.4 % 20 - 40 % [place] MCH (RBC) [Entitic mass] 28.9 pg 26 - 34 pg [place] MCHC (RBC) [Mass/Vol] 34.4 % 32 - 36 % [place] MCV (RBC) [Entitic vol] 84.0 fL 80 - 98 fL [place] Monocytes (Bld) [#/Vol] 0.5 10*3/uL 0 - 0.8 10*3/uL [place] Monocytes/100 WBC (Bld) 6.4 % 2 - 10 % [place] Platelet mean volume (Bld) [Entitic vol] 5.9 fL Low 7.4 - 10.4 fL [place] Platelets (Bld) [#/Vol] 232 10*3/uL 140 - 440 10*3/uL [place] RBC (Bld) [#/Vol] 5.04 10*6/uL 4.4 - 5.9 10*6/uL [place] WBC (Bld) [#/Vol] 7.7 10*3/uL 3.6 - 10.7 10*3/uL [place] Test Performed by [facility], [address] [place] [address] CTA CHEST W WO CONTRASTon Patient Name: SOPHIE HICKS Computed Tomography ACCESSION EXAM DATE/TIME PROCEDURE ORDERING PROVIDER [id number] 03/30/2020 10:56 EST CTA Chest w/ + w/o MD AFSHAN, YADIEL Guevara Contrast CPT code 49440 Q9967 Reason For Exam (CTA Chest w/ + w/o Contrast) Chest pain shortness of breath leg edema, elevated d-dimer, evaluate for PE Report Indication: Chest pain and shortness of breath. And elevated d-dimer level. Following the intravenous administration of contrast material, contiguous axial CT images were obtained through the chest as per the PE protocol. Coronal and sagittal reconstructed CT images of the chest were performed by the geodetic surveyor technologist. Post processing 3-D and reconstructed CT images of the chest were performed and simultaneously reviewed by me on a separate workstation to better evaluate for PE. Comparison was made to the study dated 04/14/2010. There is no CT evidence of a pulmonary embolus within the central pulmonary arteries. Evaluation of the branch vessels of the pulmonary arteries is limited due to respiratory motion artifact. The heart is not enlarged. There are no pericardial fluid collections. The thoracic aorta is grossly normal in appearance. There is no evidence of mediastinal, hilar or axillary adenopathy. There is no evidence of pneumonia or pleural effusion. No suspicious lung mass is visualized. There is a stable 3 mm nodule in the right perihilar region (series 3, image 89) and a stable 2 mm nodule in the posterior aspect of the left lower lung (series 3, image 234). These are compatible with a benign process. Limited images of the upper abdomen reveal fatty infiltration of the liver. Impression: 1. No CT evidence of a pulmonary embolus within the central pulmonary arteries. The branch vessels of the pulmonary artery are suboptimally evaluated due to artifact. 2. No evidence of pneumonia or pleural effusion. 3. Fatty infiltration of the liver. Report Dictated on --- Final --- Dictating Physician: DO GARCIA ANTHONY Signed Date and Time: 03/30/2020 11:29 am Signed by: DO GARCIA ANTHONY Transcribed Date and Time: 03/30/2020 11:30 [facility] Incoming Radiology Results From [facility] - 03/30/2020 11:31 AM EST Patient Name: SOPHIE HICKS Computed Tomography ACCESSION EXAM DATE/TIME PROCEDURE ORDERING PROVIDER [id number] 03/30/2020 10:56 EST CTA Chest w/ + w/o MD AFSHAN, YADIEL Guevara Contrast CPT code 37136 Q9967 Reason For Exam (CTA Chest w/ + w/o Contrast) Chest pain shortness of breath leg edema, elevated d-dimer, evaluate for PE Report Indication: Chest pain and shortness of breath. And elevated d-dimer level. Following the intravenous administration of contrast material, contiguous axial CT images were obtained through the chest as per the PE protocol. Coronal and sagittal reconstructed CT images of the chest were performed by the geodetic surveyor technologist. Post processing 3-D and reconstructed CT images of the chest were performed and simultaneously reviewed by me on a separate workstation to better evaluate for PE. Comparison was made to the study dated 04/14/2010. There is no CT evidence of a pulmonary embolus within the central pulmonary arteries. Evaluation of the branch vessels of the pulmonary arteries is limited due to respiratory motion artifact. The heart is not enlarged. There are no pericardial fluid collections. The thoracic aorta is grossly normal in appearance. There is no evidence of mediastinal, hilar or axillary adenopathy. There is no evidence of pneumonia or pleural effusion. No suspicious lung mass is visualized. There is a stable 3 mm nodule in the right perihilar region (series 3, image 89) and a stable 2 mm nodule in the posterior aspect of the left lower lung (series 3, image 234). These are compatible with a benign process. Limited images of the upper abdomen reveal fatty infiltration of the liver. Impression: 1. No CT evidence of a pulmonary embolus within the central pulmonary arteries. The branch vessels of the pulmonary artery are suboptimally evaluated due to artifact. 2. No evidence of pneumonia or pleural effusion. 3. Fatty infiltration of the liver. Report Dictated on --- Final --- Dictating Physician: DO GARCIA ANTHONY Signed Date and Time: 03/30/2020 11:29 am Signed by: DO GARCIA ANTHONY Transcribed Date and Time: 03/30/2020 11:30 [place] D-Dimer, Quantitativeon 03-13 D-Dimer, Quant 0.77 mg/L High 0 - 0.5 mg/L [place] Comment on above: [employer] D-Dimer va lues of <0.50 mg/L FEU can be used in combination with a pre-test probability model (e.g. Well's) to exclude pulmonary embolism (PE) disease, as well as an aid in the diagnosis of deep vein thrombosis (DVT). Interpretation and review of laboratory results Abnormal [place] [facility], [address] [place], [place] [id number] [place] [address] Otheron 03-30-2020 Test Performed by [employer] [facility], [address], [place], [place] [address] [place] Troponinon 03-30-2020 Troponin I.cardiac [Mass/Vol] ng/mL 0 - 0.034 ng/mL [facility] [place], [place] Comment on above: . VL LOWER EXTREMITY BILATERAL VENOUS DUPLEXon 03-30-2020 [facility] Lower Extremity Venous Duplex Report Patient Sophie Hicks : 1965 Study 03/30/2020 Name: Jordyn (54yrs) Date: Age: 54 Account: [id number] Gender: M Loc: 444 BP: Ordering Physician: Yadiel Cavanaugh Risk Tech: Lisandro Keller RVT Interpreting Physician: Bakari Johnson MD Location: [facility] Indications: Edema and pain of bilateral lower extremities. Preliminary result was reported to Dr Cavanaugh , by Lisandro Keller , on 03/30/2020 , at 09:43 AM. Correct read-back was verified. Conclusions 1. There is no evidence of acute deep or superficial venous thrombosis noted in the right lower extremity. 2. There is no evidence of acute deep or superficial venous thrombosis noted in the left lower extremity. History: Risk factors: Obese. Age over 50 years. Study data: Complete lower extremity venous duplex evaluation. Grayscale 2D imaging, color Doppler imaging, and spectral Doppler analysis. Location: Bedside. Objective: Diagnostic evaluation. Procedure: A vascular evaluation was performed with the patient in the supine position. Images were obtained using a [employer] E9 vascular ultrasound machine. The study was technically limited due to patient anatomy. Venous flow and imaging: + ------+ ---+ + +Location +Overall +Properties + + ------+ ---+ + +R CFV +Patent +Normal phasicity; + + + +spontaneous; normal + + + +augmentation; compressible + + ------+ ---+ + +R saphenofemoral +Patent +Compressible + +junction + + + + ------+ ---+ + +R profunda femoral +Patent +Normal phasicity; + + + +spontaneous; normal + + + +augmentation + + ------+ ---+ + +R FV - prox. +Patent +Compressible + + ------+ ---+ + +R FV - mid +Patent +Normal phasicity; + + + +spontaneous; normal + + + +augmentation; compressible + + ------+ ---+ + +R FV - distal +Patent +Compressible + + ------+ ---+ + +R popliteal +Patent +Normal phasicity; + + + +spontaneous; normal + + + +augmentation; compressible + + ------+ ---+ + +R gastrocnemius +Patent +Compressible + + ------+ ---+ + +R PTV +Patent +Compressible + + ------+ ---+ + +R peroneal +Patent +Compressible + + ------+ ---+ + +R soleal +Patent +Compressible + + ------+ ---+ + +R GSV +Patent +Compressible + + ------+ ---+ + +R SSV +Patent +Compressible + + ------+ ---+ + +L CFV +Patent +Normal phasicity; + + + +spontaneous; normal + + + +augmentation; compressible + + ------+ ---+ + +L saphenofemoral +Patent +Compressible + +junction + + + + ------+ ---+ + +L profunda femoral +Patent +Normal phasicity; + + + +spontaneous; normal + + + +augmentation + + ------+ ---+ + +L FV - prox. +Patent +Compressible + + ------+ ---+ + +L FV - mid +Patent +Normal phasicity; + + + +spontaneous; normal + + + +augmentation; compressible + + ------+ ---+ + +L FV - distal +Patent +Compressible + + ------+ ---+ + +L popliteal +Patent +Normal phasicity; + + + +spontaneous; normal + + + +augmentation; compressible + + ------+ ---+ + +L gastrocnemius +Patent +Compressible + + ------+ ---+ + +L PTV +Patent +Compressible + + ------+ ---+ + +L peroneal +Patent +Compressible + + ------+ ---+ + +L soleal +Difficult study+Compressible + + ------+ ---+ + +L GSV +Patent +Compressible + + ------+ ---+ + +L SSV +Patent +Compressible + + ------+ ---+ + Prepared and electronically signed by Bakari Johnson MD 03/30/2020 09:56 [facility] [place] [place] Kirk [facility] Incoming Cardiology Results From [place] - 03/30/2020 9:57 AM EST [facility] Lower Extremity Venous Duplex Report Patient Sophie Hicks : 1965 Study 03/30/2020 Name: Jordyn (54yrs) Date: Age: 54 Account: [id number] Gender: M Loc: 444 BP: Ordering Physician: Yadiel Cavanaugh Risk Tech: Lisandro Keller Jessie Interpreting Physician: Bakari Johnson MD Location: [facility] Indications: Edema and pain of bilateral lower extremities. Preliminary result was reported to Dr Cavanaugh , by Lisandro Keller , on 03/30/2020 , at 09:43 AM. Correct read-back was verified. Conclusions 1. There is no evidence of acute deep or superficial venous thrombosis noted in the right lower extremity. 2. There is no evidence of acute deep or superficial venous thrombosis noted in the left lower extremity. History: Risk factors: Obese. Age over 50 years. Study data: Complete lower extremity venous duplex evaluation. Grayscale 2D imaging, color Doppler imaging, and spectral Doppler analysis. Location: Bedside. Objective: Diagnostic evaluation. Procedure: A vascular evaluation was performed with the patient in the supine position. Images were obtained using a [employer] E9 vascular ultrasound machine. The study was technically limited due to patient anatomy. Venous flow and imaging: + ------+ ---+ + +Location +Overall +Properties + + ------+ ---+ + +R CFV +Patent +Normal phasicity; + + + +spontaneous; normal + + + +augmentation; compressible + + ------+ ---+ + +R saphenofemoral +Patent +Compressible + +junction + + + + ------+ ---+ + +R profunda femoral +Patent +Normal phasicity; + + + +spontaneous; normal + + + +augmentation + + ------+ ---+ + +R FV - prox. +Patent +Compressible + + ------+ ---+ + +R FV - mid +Patent +Normal phasicity; + + + +spontaneous; normal + + + +augmentation; compressible + + ------+ ---+ + +R FV - distal +Patent +Compressible + + ------+ ---+ + +R popliteal +Patent +Normal phasicity; + + + +spontaneous; normal + + + +augmentation; compressible + + ------+ ---+ + +R gastrocnemius +Patent +Compressible + + ------+ ---+ + +R PTV +Patent +Compressible + + ------+ ---+ + +R peroneal +Patent +Compressible + + ------+ ---+ + +R soleal +Patent +Compressible + + ------+ ---+ + +R GSV +Patent +Compressible + + ------+ ---+ + +R SSV +Patent +Compressible + + ------+ ---+ + +L CFV +Patent +Normal phasicity; + + + +spontaneous; normal + + + +augmentation; compressible + + ------+ ---+ + +L saphenofemoral +Patent +Compressible + +junction + + + + ------+ ---+ + +L profunda femoral +Patent +Normal phasicity; + + + +spontaneous; normal + + + +augmentation + + ------+ ---+ + +L FV - prox. +Patent +Compressible + + ------+ ---+ + +L FV - mid +Patent +Normal phasicity; + + + +spontaneous; normal + + + +augmentation; compressible + + ------+ ---+ + +L FV - distal +Patent +Compressible + + ------+ ---+ + +L popliteal +Patent +Normal phasicity; + + + +spontaneous; normal + + + +augmentation; compressible + + ------+ ---+ + +L gastrocnemius +Patent +Compressible + + ------+ ---+ + +L PTV +Patent +Compressible + + ------+ ---+ + +L peroneal +Patent +Compressible + + ------+ ---+ + +L soleal +Difficult study+Compressible + + ------+ ---+ + +L GSV +Patent +Compressible + + ------+ ---+ + +L SSV +Patent +Compressible + + ------+ ---+ + Prepared and electronically signed by Bakari Johnson MD 03/30/2020 09:56 [facility], [employer] XR CHEST PORTABLEon 03-30-20 Patient Name: SOPHIE HICKS Diagnostic Radiology ACCESSION EXAM DATE/TIME PROCEDURE ORDERING PROVIDER [id number] 03/30/2020 09:54 EST CR Chest Portable MD CAVANAUGH GREGORY M CPT code 45444 Reason For Exam (CR Chest Portable) Chest pain and dyspnea Report Portable chest 03/30/2020: Clinical Information: Chest pain. Findings: A single AP portable view of the chest was obtained at 948 hours. Comparison was made to the prior study 07/16/2015. The trachea is midline. The heart is not enlarged. No focal areas of consolidation or volume loss are seen. There are no pleural effusions. The pulmonary vasculature does not appear congested. The visualized bony structures are intact. Impression: No acute process. Report Dictated on --- Final --- Dictating Physician: MD ARTEAGA RISA Signed Date and Time: 03/30/2020 9:58 am Signed by: MD ARTEAGA RISA Transcribed Date and Time: 03/30/2020 9:59 [facility], [employer] [facility] Incoming Radiology Results From [facility] - 03/30/2020 9:59 AM EST Patient Name: SOPHIE HICKS Diagnostic Radiology ACCESSION EXAM DATE/TIME PROCEDURE ORDERING PROVIDER [id number] 03/30/2020 09:54 EST CR Chest Portable MD CAVANAUGH GREGORY M CPT code 60698 Reason For Exam (CR Chest Portable) Chest pain and dyspnea Report Portable chest 03/30/2020: Clinical Information: Chest pain. Findings: A single AP portable view of the chest was obtained at 948 hours. Comparison was made to the prior study 07/16/2015. The trachea is midline. The heart is not enlarged. No focal areas of consolidation or volume loss are seen. There are no pleural effusions. The pulmonary vasculature does not appear congested. The visualized bony structures are intact. Impression: No acute process. Report Dictated on --- Final --- Dictating Physician: MD ARTEAGA RISA Signed Date and Time: 03/30/2020 9:58 am Signed by: MD ARTEAGA RISA Transcribed Date and Time: 03/30/2020 9:59 [facility] 02-22-2020 CN Office Visit ([id number]) ---- SOPHIE HICKS ([id number]) 1965 M Date Time Provider Department 02/22/20 2:15 PM LANDON WEEKS [id number] During your visit today, we recorded the following information about you: Respiration Weight Height 20/minute 158.8 kg 1.829 m Wyatt Upton LPN 02/22/2020 2:19 PM Signed REVIEW OF SYSTEMS: GENERAL: Well developed, well nourished. No acute distress PAIN: Pain left shoulder CARDIOVASCULAR: Negative for chest pain, leg swelling and palpations. MSK: joint pain left shoulder SKIN: Negative for lesions, rash, itching, metal sensitivity NEURO: Negative for seizure, trauma, numbness/tingling of extremities. ENDOCRINE: Negative for Diabetes Type 1 and Type 2 HEMATOLOGY: Negative for excessive bleeding, clots, bleeding disorders. Landon Weeks MD 02/22/2020 2:19 PM Signed History: Sophie Hicks is a 54 year old male who returns 3.5 months post RTC repair of the Left shoulder.@ is doing well. He quantitates the pain as 9/10 at times when he feels popping with certain motions. Otherwise he is doing well. He denies chest pain, SOB, fever, chills, or drainage. No calf pain reported. He is taking NSAIDS for pain management purposes. No numbness or tingling. No swelling. Physical Examination: He is alert and oriented and in no acute distress. The portals are well healed. No erythema or drainage noted. Active FE is 110 degrees and active ER is 30 degrees. He exhibits good strength with ER at the side. Negative Nayely?s. Good Rom of elbow and wrist noted. NVI distally. Assessment: Complete tear of left rotator cuff, unspecified whether traumatic (primary encounter diagnosis) Ac joint arthropathy Plan: He has completed their formal Phase II physical therapy program. They are to begin Phase III at this time. Restrictions were relayed to the patient. Ice as instructed. He is taking NSAIDS for pain management purposes if necessary. They understand the risks and benefits of these medications and would like to proceed. Return for follow-up in 6 weeks. Landon Weeks MD Referring Provider: LANDON WEEKS [[id number]] Allergies As of Date: 02/22/2020 (No Known Allergies) Date Reviewed: 02/22/2020 Reviewed by: Wyatt (Yulia) Alexsandra - Fully Assessed Reason for Visit: Established Patient [175] Follow Up [171] Primary Visit Diagnosis:Complete tear of left rotator cuff, unspecified whether traumatic [M75.122] Other Visit Diagnosis:AC joint arthropathy [M19.019] Order(s):CONSULT TO PHYSICAL THERAPY (AG) [[id number]] Order #: [id number]: 1 meloxicam (MOBIC) 15 mg tabletTake 1 tablet by mouth once daily.Disp: 30 tabletRfl: 1 Prescriptions as of 02/22/2020 Sig: MELOXICAM 15 MG TABLET Take 1 tablet by mouth once d* IBUPROFEN 800 MG TABLET Take 800 mg by mouth four noel* ASPIRIN 81 MG CHEWABLE TABLET Take 81 mg by mouth daily at * MELOXICAM 15 MG TABLET Take 1 tablet by mouth once d* METHYLPREDNISOLONE 4 MG TABLE* As Instructed per package Patient not taking: Reported on 11/23/2019 Problem List As Of Date 02/22/2020 Noted Resolved Obesity, Class III, BMI >= 40 [E66.01] 11/11/2019 Prescriptions ordered this encounter Disp Refills Start End MELOXICAM 15 MG TABLET 30 t* 1 02/22/2020 Route: ORAL Sig: Take 1 tablet by mouth once daily. Disposition: Return in about 6 weeks (around 04/04/2020). Follow-up and Disposition History Recorded Encounter Status:Closed by LANDON WEEKS MD on 02/22/20 [facility] PROGRESSon 02-22-2020 PROGRESS HNO ID: [id number] Author: Landon Weeks Service: ? Author Type: Physician Type: Progress Notes Filed: 02/22/2020 2:19 PM Note Text: History: Sophie Hicks is a 54 year old male who returns 3.5 months post RTC repair of the Left shoulder.@ is doing well. He quantitates the pain as 9/10 at times when he feels popping with certain motions. Otherwise he is doing well. He denies chest pain, SOB, fever, chills, or drainage. No calf pain reported. He is taking NSAIDS for pain management purposes. No numbness or tingling. No swelling. Physical Examination: He is alert and oriented and in no acute distress. The portals are well healed. No erythema or drainage noted. Active FE is 110 degrees and active ER is 30 degrees. He exhibits good strength with ER at the side. Negative Nayely?s. Good Rom of elbow and wrist noted. NVI distally. Assessment: Complete tear of left rotator cuff, unspecified whether traumatic (primary encounter diagnosis) Ac joint arthropathy Plan: He has completed their formal Phase II physical therapy program. They are to begin Phase III at this time. Restrictions were relayed to the patient. Ice as instructed. He is taking NSAIDS for pain management purposes if necessary. They understand the risks and benefits of these medications and would like to proceed. Return for follow-up in 6 weeks. Landon Weeks MD [facility] PROGRESS HNO ID: [id number] Author: Wyatt Upton Service: ? Author Type: LICENSED NURSE Type: Progress Notes Filed: 02/22/2020 2:19 PM Note Text: REVIEW OF SYSTEMS: GENERAL: Well developed, well nourished. No acute distress PAIN: Pain left shoulder CARDIOVASCULAR: Negative for chest pain, leg swelling and palpations. MSK: joint pain left shoulder SKIN: Negative for lesions, rash, itching, metal sensitivity NEURO: Negative for seizure, trauma, numbness/tingling of extremities. ENDOCRINE: Negative for Diabetes Type 1 and Type 2 HEMATOLOGY: Negative for excessive bleeding, clots, bleeding disorders. Normal [facility] CNOVon 01-04-2020 CNOV Office Visit (AGHWW1) ---- SOPHIE HICKS ([id number]) 1965 M Date Time Provider Department 01/04/20 2:45 PM LANDON WEEKS AGHWW1 During your visit today, we recorded the following information about you: Respiration Weight Height 22/minute 158.8 kg 1.829 m Landon Weeks MD 01/04/2020 2:38 PM Signed History: Sophie Hicks is a 54 year old male who returns 8 weeks post Left Shoulder arthroscopy, rotator cuff repair, sub-acromial decompression, extensive debridement , distal claviclectomy. He is doing well. He quantitates the pain as 4/10. He denies chest pain, SOB, fever, chills, or drainage. No calf pain reported. He is taking NSAIDS for pain management purposes. Physical Examination: He is alert and oriented and in no acute distress. The portals are well healed. No erythema or drainage noted. Passive supine FE is 90 degrees and passive ER is 20 degrees. Negative Nayely?s. Good Rom of elbow and wrist noted. NVI distally. Assessment: Complete tear of left rotator cuff, unspecified whether traumatic (primary encounter diagnosis) Ac joint arthropathy Plan: He has completed their formal Phase I physical therapy program. They are to begin Phase II at this time. They can discontinue the sling but restrictions were relayed to the patient. They may drive but only if comfortable behind a wheel. Ice as instructed. He is taking NSAIDS for pain management purposes if necessary. They understand the risks and benefits of these medications and would like to proceed. Return for follow-up in 6 weeks. Landon Weeks MD Referring Provider: ELIN ORTA [[id number]] Allergies As of Date: 01/04/2020 (No Known Allergies) Date Reviewed: 01/04/2020 Reviewed by: Wyatt Mares) Little - Fully Assessed Reason for Visit: Follow Up [171] Cmt: Pt states he is having a constant burning and throbbing. Pt states he is unable to the bands at home. Pt states he is still in PT twice a week Established Patient [175] Follow Up [171] Post Op [174] Reason For Visit History Recorded Primary Visit Diagnosis:Complete tear of left rotator cuff, unspecified whether traumatic [M75.122] Other Visit Diagnosis:AC joint arthropathy [M19.019] Order(s):CONSULT TO PHYSICAL THERAPY (AG) [[id number]] Order #: [id number]: 1 oxyCODONE-acetamino phen (PERCOCET) 5-325 mg tabletTake 1 tablet by mouth every 6 hours as needed for Pain for up to 7 days.Disp: 28 tabletRfl: 0 Prescriptions as of 01/04/2020 Sig: MELOXICAM 15 MG TABLET Take 1 tablet by mouth once d* IBUPROFEN 800 MG TABLET Take 800 mg by mouth four noel* ASPIRIN 81 MG CHEWABLE TABLET Take 81 mg by mouth daily at * OXYCODONE-ACETAMINO PHEN 5 MG-* Take 1 tablet by mouth every * METHYLPREDNISOLONE 4 MG TABLE* As Instructed per package Patient not taking: Reported on 11/23/2019 Problem List As Of Date 01/04/2020 Noted Resolved Obesity, Class III, BMI >= 40 [E66.01] 11/11/2019 Prescriptions ordered this encounter Disp Refills Start End OXYCODONE-ACETAMINO PHEN 5 MG-325 MG * 28 t* 0 01/04/2020 01/11/2020 Class: Print RX Route: ORAL Sig: Take 1 tablet by mouth every 6 hours as needed for Pain for up to 7 days. Disposition: Return in about 6 weeks (around 02/15/2020). Follow-up and Disposition History Recorded Encounter Status:Closed by LANDON WEEKS MD on 01/04/20 [facility] PROGRESSon 01-04-2020 PROGRESS HNO ID: [id number] Author: Landon Weeks Service: ? Author Type: Physician Type: Progress Notes Filed: 01/04/2020 2:38 PM Note Text: History: Sophie Hicks is a 54 year old male who returns 8 weeks post Left Shoulder arthroscopy, rotator cuff repair, sub-acromial decompression, extensive debridement , distal claviclectomy. He is doing well. He quantitates the pain as 4/10. He denies chest pain, SOB, fever, chills, or drainage. No calf pain reported. He is taking NSAIDS for pain management purposes. Physical Examination: He is alert and oriented and in no acute distress. The portals are well healed. No erythema or drainage noted. Passive supine FE is 90 degrees and passive ER is 20 degrees. Negative Nayely?s. Good Rom of elbow and wrist noted. NVI distally. Assessment: Complete tear of left rotator cuff, unspecified whether traumatic (primary encounter diagnosis) Ac joint arthropathy Plan: He has completed their formal Phase I physical therapy program. They are to begin Phase II at this time. They can discontinue the sling but restrictions were relayed to the patient. They may drive but only if comfortable behind a wheel. Ice as instructed. He is taking NSAIDS for pain management purposes if necessary. They understand the risks and benefits of these medications and would like to proceed. Return for follow-up in 6 weeks. Landon Weeks MD [facility] OBSOLETEon 12-12-2019 OBSOLETE Refill (AGHWW1) ---- SOPHIE HICKS ([id number]) 1965 M Date Time Provider Department 12/12/19 ELIN ORTA AGHWW1 During your visit today, we recorded the following information about you: Allergies As of Date: 12/12/2019 (No Known Allergies) Date Reviewed: 11/23/2019 Reviewed by: Wyatt Mares) Alexsandra - Fully Assessed Reason for Visit: Refill Request [94] Refill Request [94] Reason For Visit History Recorded Prescriptions as of 12/12/2019 Sig: MELOXICAM 15 MG TABLET Take 1 tablet by mouth once d* METHYLPREDNISOLONE 4 MG TABLE* As Instructed per package Patient not taking: Reported on 11/23/2019 IBUPROFEN 800 MG TABLET Take 800 mg by mouth four noel* ASPIRIN 81 MG CHEWABLE TABLET Take 81 mg by mouth daily at * Problem List As Of Date 12/12/2019 Noted Resolved Obesity, Class III, BMI >= 40 [E66.01] 11/11/2019 Encounter Status:Closed by JJ SCOTT CMA on 12/12/19 [facility] OBSOLETEon 12-07-2019 OBSOLETE Refill (AGHWW1) ---- SOPHIE HICKS ([id number]) 1965 M Date Time Provider Department 12/07/19 ELIN ORTA AGHWW1 During your visit today, we recorded the following information about you: Allergies As of Date: 12/07/2019 (No Known Allergies) Date Reviewed: 11/23/2019 Reviewed by: Wyatt Mares) Alexsandra - Fully Assessed Reason for Visit: Refill Request [94] Refill Request [94] Reason For Visit History Recorded Prescriptions as of 12/07/2019 Sig: MELOXICAM 15 MG TABLET Take 1 tablet by mouth once d* METHYLPREDNISOLONE 4 MG TABLE* As Instructed per package Patient not taking: Reported on 11/23/2019 IBUPROFEN 800 MG TABLET Take 800 mg by mouth four noel* ASPIRIN 81 MG CHEWABLE TABLET Take 81 mg by mouth daily at * Problem List As Of Date 12/07/2019 Noted Resolved Obesity, Class III, BMI >= 40 [E66.01] 11/11/2019 Encounter Status:Closed by JJ SCOTT CMA on 12/07/19 [facility] OBSOLETEon 12-04-2019 OBSOLETE Refill (AGHWW1) ---- SOPHIE HICKS ([id number]) 1965 M Date Time Provider Department 12/04/19 ELIN ORTA AGHWW1 During your visit today, we recorded the following information about you: Allergies As of Date: 12/04/2019 (No Known Allergies) Date Reviewed: 11/23/2019 Reviewed by: Wyatt Upton - Fully Assessed Reason for Visit: Refill Request [94] Refill Request [94] Reason For Visit History Recorded Visit Diagnosis:Strain of muscle(s) and tendon(s) of the rotator cuff of left shoulder, initial encounter [S46.012A] Prescriptions as of 12/04/2019 Sig: MELOXICAM 15 MG TABLET Take 1 tablet by mouth once d* METHYLPREDNISOLONE 4 MG TABLE* As Instructed per package Patient not taking: Reported on 11/23/2019 IBUPROFEN 800 MG TABLET Take 800 mg by mouth four noel* ASPIRIN 81 MG CHEWABLE TABLET Take 81 mg by mouth daily at * Problem List As Of Date 12/04/2019 Noted Resolved Obesity, Class III, BMI >= 40 [E66.01] 11/11/2019 Encounter Status:Closed by JJ SCOTT CMA on 12/05/19 [facility] 11-23-2019 OV Office Visit (AGHWW1) ---- SOPHIE HICKS ([id number]) 1965 M Date Time Provider Department 11/23/19 2:45 PM LANDON WEEKS AGHWW1 During your visit today, we recorded the following information about you: Respiration Weight Height 20/minute 158.8 kg 1.829 m Landon Weeks MD 11/23/2019 3:40 PM Signed History: Sophie Hicks is approximately 12 days s/p Left Shoulder arthroscopy, rotator cuff repair, sub-acromial decompression, extensive debridement , distal claviclectomy. They are doing well. He quantitates the pain as 9/10. He denies chest pain, SOB, fever, chills, or drainage. No calf pain reported. He is taking NSAIDS for pain management purposes. Physical Examination: He is alert and oriented and in no acute distress. The portals are clean, dry, and intact. No erythema or drainage noted. Passive supine FE is 90 degrees and passive ER is 0 degrees. Negative Nayely?s. Good Rom of elbow and wrist noted. Assessment: Complete tear of left rotator cuff, unspecified whether traumatic (primary encounter diagnosis) Ac joint arthropathy Plan: He will start their formal Phase I physical therapy program. Ice as instructed. He is taking NSAIDS for pain management purposes if necessary. They understand the risks and benefits of these medications and would like to proceed. He was instructed on appropriate sling usage. Sutures from the portals were removed without difficulty. Return for follow-up in 6 weeks. Landon Weeks MD Referring Provider: ELIN ORTA [[id number]] Allergies As of Date: 11/23/2019 (No Known Allergies) Date Reviewed: 11/23/2019 Reviewed by: Wyatt Mares) Little - Fully Assessed Reason for Visit: Follow Up [171] Cmt: pt states he took the medrol dose pack Established Patient [175] Follow Up [171] Post Op [174] Reason For Visit History Recorded Primary Visit Diagnosis:Complete tear of left rotator cuff, unspecified whether traumatic [M75.122] Other Visit Diagnosis:AC joint arthropathy [M19.019] Order(s):CONSULT TO PHYSICAL THERAPY (AG) [[id number]] Order #: [id number]: 1 meloxicam (MOBIC) 15 mg tabletTake 1 tablet by mouth once daily.Disp: 30 tabletRfl: 1 Prescriptions as of 11/23/2019 Sig: IBUPROFEN 800 MG TABLET Take 800 mg by mouth four noel* ASPIRIN 81 MG CHEWABLE TABLET Take 81 mg by mouth daily at * MELOXICAM 15 MG TABLET Take 1 tablet by mouth once d* METHYLPREDNISOLONE 4 MG TABLE* As Instructed per package Patient not taking: Reported on 11/23/2019 Problem List As Of Date 11/23/2019 Noted Resolved Obesity, Class III, BMI >= 40 [E66.01] 11/11/2019 Prescriptions ordered this encounter Disp Refills Start End MELOXICAM 15 MG TABLET 30 t* 1 11/23/2019 Route: ORAL Sig: Take 1 tablet by mouth once daily. Disposition: Return in about 6 weeks (around 01/04/2020). Follow-up and Disposition History Recorded Encounter Status:Closed by LANDON WEEKS MD on 11/23/19 [facility] PROGRESSon 11-23-2019 PROGRESS HNO ID: [id number] Author: Landon Weeks Service: ? Author Type: Physician Type: Progress Notes Filed: 11/23/2019 3:40 PM Note Text: History: Sophie Hicks is approximately 12 days s/p Left Shoulder arthroscopy, rotator cuff repair, sub-acromial decompression, extensive debridement , distal claviclectomy. They are doing well. He quantitates the pain as 9/10. He denies chest pain, SOB, fever, chills, or drainage. No calf pain reported. He is taking NSAIDS for pain management purposes. Physical Examination: He is alert and oriented and in no acute distress. The portals are clean, dry, and intact. No erythema or drainage noted. Passive supine FE is 90 degrees and passive ER is 0 degrees. Negative Nayely?s. Good Rom of elbow and wrist noted. Assessment: Complete tear of left rotator cuff, unspecified whether traumatic (primary encounter diagnosis) Ac joint arthropathy Plan: He will start their formal Phase I physical therapy program. Ice as instructed. He is taking NSAIDS for pain management purposes if necessary. They understand the risks and benefits of these medications and would like to proceed. He was instructed on appropriate sling usage. Sutures from the portals were removed without difficulty. Return for follow-up in 6 weeks. Landon Weeks MD [facility] CNPMarti 11-14-2019 CNPN Telephone (AGPOB1) ---- SOPHIE HICKS ([id number]) 1965 M Date Time Provider Department 11/14/19 LANDON WEEKSPOB1 During your visit today, we recorded the following information about you: Indira Calix 11/14/2019 8:25 AM Signed Titi called this morning he is having a clear/reddish discharge from his lt shoulder surgical site, not smell, discharge does not completely saturate dressing says he noted it this morning upon waking up. Wanted to know if he should he concerned. Told patient some discharge is not uncommon but to monitor it for any increase, color change, smell. He denies any fever streaking new activities or injury. He also is requesting an early refill for his Percocet, he was instructed over the weekend by Dr. Weeks to take 2 every 6 hours for break thru pain. States this is helping but he will be completely out tomorrow. Patient has been using an antiinflammatory between doses, icing and resting. Told patient I would relay this all for review once the office received recommendation from Dr. Weeks we would be in contact. Ernesto Ambriz 11/15/2019 9:58 AM Signed Patient called back again with concerns that he is out of Percocet now and would like to pick more up at [facility] if possible. He states that he cleaned off his shoulder and no more drainage presently. I told him I will send a new message to Dr. Weeks but he is in surgery today. Ernesto Ambriz November 15, 2019 9:57 AM Landon Weeks MD 11/15/2019 4:04 PM Signed Small amounts of arthroscopic fluid may leak out of the incisions and this is normal. Percocet refilled. If Pharmacy questions the refill, it is okay to fill secondary to post-operative pain and patient's larger habitus. Ernesto Ambriz 11/15/2019 4:51 PM Signed Called and told patient what Dr Hernández said small amounts of arthroscopic fluid may leak out of the incisions and this in normal. Ernesto Ambriz November 15, 2019 4:51 PM Allergies As of Date: 11/14/2019 (No Known Allergies) Date Reviewed: 11/11/2019 Reviewed by: Evy (Ciro) CIRO Ridley - Fully Assessed Reason for Visit: PO CONCERN [Other] Primary Visit Diagnosis:AC joint arthropathy [M19.019] Other Visit Diagnosis:Complete tear of left rotator cuff, unspecified whether traumatic [M75.122] Order(s):oxyCODONE- acetaminophen (PERCOCET) 5-325 mg tabletTake 1 tablet by mouth every 6 hours as needed for Pain for up to 7 days.Disp: 28 tabletRfl: 0 Prescriptions as of 11/14/2019 Sig: OXYCODONE-ACETAMINO PHEN 5 MG-* Take 1 tablet by mouth every * METHYLPREDNISOLONE 4 MG TABLE* As Instructed per package IBUPROFEN 800 MG TABLET Take 800 mg by mouth four noel* ASPIRIN 81 MG CHEWABLE TABLET Take 81 mg by mouth daily at * Problem List As Of Date 11/14/2019 Noted Resolved Obesity, Class III, BMI >= 40 [E66.01] 11/11/2019 Prescriptions ordered this encounter Disp Refills Start End OXYCODONE-ACETAMINO PHEN 5 MG-325 MG * 28 t* 0 11/15/2019 11/22/2019 Route: ORAL Sig: Take 1 tablet by mouth every 6 hours as needed for Pain for up to 7 days. Medications Discontinued During This Encounter Prescriptions - oxyCODONE-acetamino phen (PERCOCET) 5-325 mg tablet (Discontinued) Take 1 tablet by mouth every 6 hours as needed for Pain for up to 7 days. Encounter Status:Closed by ERNESTO AMBRIZ on 11/15/19 [facility] ANES Karissa 11-11-2019 ANES POST HNO ID: [id number] Author: Joel Jackson Service: Anesthesiology Author Type: Physician Type: Anesthesia PostOp Filed: 11/11/2019 4:16 PM Note Text: POST ANESTHESIA EVALUATION NOTE SERVICE DATE: 11/11/2019 SERVICE TIME: 4:16 PM : 1965 Vitals: 11/11/19 0857 11/11/19 1305 11/11/19 1530 Temp: 36.6 ?C (97.9 ?F) 36.9 ?C (98.4 ?F) 37 ?C (98.6 ?F) 11/11/19 1430 11/11/19 1445 11/11/19 1500 11/11/19 1515 BP: 172/84 180/94 115/63 128/75 11/11/19 1445 11/11/19 1500 11/11/19 1515 11/11/19 1530 Pulse: 93 102 95 96 11/11/19 1445 11/11/19 1500 11/11/19 1515 11/11/19 1530 Resp: 20 17 18 26 11/11/19 1445 11/11/19 1500 11/11/19 1515 11/11/19 1530 SpO2: 92% 93% 95% 95% Validated Vital Signs: Yes POST ANES STATUS: No apparent anesthetic complications. The patient is appropriately hydrated with stable respiratory and cardiovascular status. Patient has safe and adequate airway control. The patient has appropriate pain relief and no significant post operative nausea or vomiting. The patient has achieved baseline mental status. Intra-Operative Events: No Significant Anesthesia Events Further assessment by Anesthesia Service: None Other Remarks: SIGNATURE: Joel Jackson DO PATIENT NAME: Sophie Hicks DATE: November 11, 2019 TIME: 4:16 PM PAGER/CONTACT #: [phone] [facility] ANES PREOPon 11-11-2019 ANES PREOP HNO ID: [id number] Author: Joel Jackson Service: Anesthesiology Author Type: Physician Type: Anesthesia PreOp Filed: 11/11/2019 9:23 AM Note Text: ANESTHESIOLOGY DAY OF SURGERY NOTE SERVICE DATE: 11/11/2019 SERVICE TIME: 9:22 AM : 1965 Procedure(s) (LRB): ARTHROSCOPY SHOULDER ROTATOR CUFF (Left) ARTHROSCOPY SHOULDER WITH SUBACROMIAL DECOMPRESSION (Left) ARTHROSCOPY SHOULDER DISTAL CLAVICULECTOMY (Left) Surgeon(s): Landon Donald Estimated body mass index is 47.47 kg/m? as calculated from the following: Height as of 11/04/19: 182.9 cm (6'). Weight as of 11/04/19: 158.8 kg (350 lb). Most recent hematocrit and potassium results: Hematocrit 37.7 12/22/2013 Potassium 3.8 12/14/2018 ANES DOS/PREOP NOTE: Vitals: 11/11/19 0857 BP: 154/87 Pulse: 96 Resp: 18 Temp: 36.6 ?C (97.9 ?F) TempSrc: Temporal SpO2: 94% ACTIVE PROBLEM LIST Obesity, Class III, BMI >= 40 PAST MEDICAL HISTORY Diagnosis Date - Acromioclavicular joint arthritis - Complete rotator cuff tear of left shoulder - Shoulder pain, left PAST SURGICAL HISTORY Procedure Laterality Date - APPENDECTOMY age 18 - PAST SURGICAL HISTORY OF 2009 anterior cervical discectomy and fusion - ROTATOR CUFF REPAIR Right approximately 2004 open FAMILY HISTORY Problem Relation Age of Onset - other (Cancer lung and throat was a smoker) Mother Social History: Social History Tobacco Use - Smoking status: Never Smoker - Smokeless tobacco: Never Used Substance Use Topics - Alcohol use: Not Currently - Drug use: Never No current facility-administer ed medications on file prior to encounter. Current Outpatient Medications on File Prior to Encounter Medication Sig - ibuprofen (MOTRIN) 800 mg tablet Take 800 mg by mouth four times daily. - aspirin 81 mg chewable tablet Take 81 mg by mouth daily at bedtime. Current Facility-Administer ed Medications Medication Dose Route Frequency Provider Last Rate Last Dose - lidocaine 10 mg/mL (1 %) 1-2 mg injection (XYLOCAINE) 0.1-0.2 mL INTRADERMAL PRN Landon Weeks - lactated ringers infusion 5-30 mL/hr INTRAVENOUS CONTINUOUS Landon Weeks - ceFAZolin iv piggyback 2 g in D5W (iso-osmotic) 100 mL (ANCEF) 2 g INTRAVENOUS Pre-Op Once Landon Weeks - lactated Ringers irrigation irrigation solution X (OR/PROCEDURE) PRN Landon Weeks 3,000 mL at 11/11/19 0838 - EPINEPHrine HCl (PF) 1 mg/mL (1 mL) injection X (OR/PROCEDURE) PRN Landon Weeks 1 mg at 11/11/19 0837 Allergies: ALLERGIES No Known Allergies DOS EXAM: Adequate NPO status: Yes Anesthetic risks, benefits, alternatives, personnel and consent discussed: Yes Patient agrees to proceed: Yes Previous Anesthesia: No history of adverse event. Airway Assessment: MP 3; Neck ROM: Limited Extension; Airway Evaluation: Thick neck Symptoms of Sleep Apnea: Snoring, Observed apnea, Hypertension, BMI > 35, Age over 50 (54 year old), Neck circumference > 15.75 inches and Male gender Dentition: Teeth intact Additional Physical Exam: Lungs: Patient health status unchanged since recent history and physical. See history and physical for exam findings. Cardiac: Patient health status unchanged since recent history and physical. See history and physical for exam findings. Additional Pertinent Findings: N/A Blood Products: Not anticipated for this procedure. Anesthetic Plan: General, Standard ASA Monitors Pain Management Plan: Parenteral or Oral and Peripheral Nerve Block ASA Class: 3 Other Medical Problems: obesity Chronic Beta Camelia medication administered within 24 hours: N/A I have interviewed and examined the patient. I have reviewed the medical record and/or the pre-anesthesia evaluation, pertinent labs, and test results. Significant changes in the patient's condition since the History and Physical, not otherwise documented in primary service progress notes: No This contains updated information obtained within 48 hours of Surgery/Procedure. SIGNATURE: Joel Jackson DO PATIENT NAME: Sophie Hicks DATE: November 11, 2019 TIME: 9:22 AM CSN: [id number] Normal [facility] ECG COMPLETEon 11-11-2019 ECG COMPLETE NAME : SOPHIE HICKS PID : [id number] : 1965 Gender : Male Race : ORD : [id number] Procedure Date : Nov 11 2019 14:35:49 Edit Date : Nov 13 2019 11:31:14 Diagnosis:NORMAL SINUS RHYTHM NONSPECIFIC T WAVE ABNORMALITY ABNORMAL ECG WHEN COMPARED WITH ECG OF 14-DEC-2018 08:49, NO SIGNIFICANT CHANGE WAS FOUND Confirmed by MD SHAVER SACHIN ([id number]) on 11/13/2019 11:31:13 AM Ventricular Rate : 88 BPM Atrial Rate : 88 BPM P-R Interval : 150 ms QRS Duration : 86 ms Q-T Interval : 364 ms QTC Calculation(Bazett) : 440 ms P [place] : 28 degrees R [place] : 12 degrees T [place] : 59 degrees Test Reason : Chest Pain Location : 10 : [facility] Overread By : MD SHAVER SACHIN Edited By : MD SHAVER SACHIN Referred By : LANDON WEEKS Acquired by : JONI MCGREGOR [facility] NURSING PROGon 11-11-2019 NURSING PROG HNO ID: [id number] Author: Evy (Rn) CIRO Ridley Service: ? Author Type: Registered Nurse Type: Nursing Progress Note Filed: 11/11/2019 3:25 PM Note Text: Nursing Progress Note Patient Name: Sophie Hicks Patient Location: [facility] Daily Note: Dr. Jackson in to see patient and look at EKG, patient okay to discharge home. This note was completed by: Evy Ridley RN [facility] NURSING PROG HNO ID: [id number] Author: Evy (Rn) CIRO Ridley Service: ? Author Type: Registered Nurse Type: Nursing Progress Note Filed: 11/11/2019 2:30 PM Note Text: Nursing Progress Note Patient Name: Sophie Hicks Patient Location: [place]-OR/[place]-OR Daily Note: Patient complaining of 9/[address] Jackson notified, EKG and chest XRAY ordered. Patient medicated for pain with fentanyl and dilaudid per orders. Pain now in left shoulder, will continue to monitor. This note was completed by: Evy Ridley RN [facility] OPERATIVE NOon 11-11-2019 OPERATIVE NO HNO ID: [id number] Author: Landon Weeks Service: Orthopaedic Surgery Author Type: Physician Type: Operative Report Filed: 11/11/2019 1:09 PM Note Text: OPERATIVE/PROCEDURE REPORT LOG ID: [id number] Surgery/Procedure Date: 11/11/2019 Incision/Procedure Start Time: 10:56 AM Incision Close/Procedure End Time: 12:50 PM Surgeon(s)/Monse oakley(s) and Hospice Physician(s): Surgeon(s) and Role: * Landon Weeks - Primary * Rasta Donald - Resident - Assisting No Additional Staff Procedure(s): Left Shoulder arthroscopy, rotator cuff repair, sub-acromial decompression, extensive debridement , distal claviclectomy Anesthesia: General with interscalene block Procedure Details: Indications: The patient is a 54 year old male who was referred to me with complaints of Left shoulder pain and weakness. After failing conservative treatment, I recommended a shoulder arthroscopy with rotator cuff repair vs. Debridement, distal clavicle resection, subacromial decompression, possible biceps tenotomy/tenodesis. The risks, benefits and possible complications from the surgery were discussed in detail and the patient wishes to proceed. The potential risks include: bleeding, infection, damage to neurovascular structures, residual pain and dysfunction, residual weakness, non-healing of the rotator cuff, retear of the rotator cuff, shoulder stiffness, and need for revision surgery. The patient also understands the risks of anesthesia which include stroke, heart attack, aspiration, blood clot, pulmonary embolus and . I also went over the common medical complications that can sometimes occur following the surgery as well as the usual postoperative rehabilitation protocol. The patient understood the risks and consented for the procedure. Operative Report: The patient was taken to the operating room following placement of an interscalene block by the anesthesia team. They were placed supine and a general anesthetic was administered. Head, neck, and airway were under control by anesthesia. Patient was then transitioned into beach chair position using the Arthrex Beach chair attachment in standard fashion. All extremities were well padded at this time. Surgical timeout confirmed the correct extremity and that preoperative antibiotics were given. The Left extremity was then prepped and draped in the usual sterile fashion. A small posterior-based incision was made with an 11-blade and a 30 degree arthroscope was placed into the shoulder. A diagnostic arthroscopy was performed. The following relevant structures were observed: 1. Fraying of anterior, superior, and posterior labrum 2. Inflammation of superior, and posterior labrum 3. Extensive synovitis of subacromial space and glenohumeral joint 4. Normal appearance of biceps tendon 5. Impingement lesion of acromion 6. Full-thickness tear of supraspinatus with 15 mm retraction 7. Glenohumeral degenerative changes grade 2 and 3 Procedure Details: Following diagnostic arthroscopy I did perform an extensive debridement. Anterior portal placed under direct visualization below biceps tendon using 18 gauge spinal needle, small incision lateral to coracoid, and Arthrex 5.5 mm cannula. I debrided the anterior, superior, and posterior labrum with shaver. All loose, unstable, and inflamed labral tissue was debrided at this time. Chondromalacia was grade 2 and 3 along the humeral head and glenoid. Chondroplasty completed here and all unstable cartilage smoothed down to a type 2. I then debrided any frayed tissue of the rotator cuff. I then debrided any inflamed synovium within the glenohumeral joint and along the biceps tendon. Red, swollen, and inflamed synovium was identified and resected with ablation wand and shaver. I then debrided the rotator cuff tear edges itself. After placement of an anterolateral portal, I inspected supraspinatus footprint. No remaining supraspinatus was attached to footprint. I used the shaver to debride this area. I also debrided the greater tuberosity with an oval baldemar to removal remnant soft tissue and expose a bleeding bed of bone for facilitation of the repair. This concluded the debridement of glenohumeral joint. The scope was removed from the glenohumeral joint and inserted into the subacromial space. Here extensive debridement/bursect shanon and subacromial decompression were performed using an ablation device and shaver. All inflamed bursa was debrided from anterior and posterior portals. Red, swollen, and inflamed synovium was throughout the subacromial space and completely encompassed the rotator cuff tear. The rotator cuff tendon was carefully dissected out of the inflamed bursa with ablation wand and shaver. The acromion was smoothed down to a type 1 acromion using an oval baldemar from posterior and lateral portals. Distal clavicle was resected from anterior portal using oval baldemar. Approximately 5mm of distal clavicle was resected. Superior and posterior capsule was left intact. I then proceeded with the rotator cuff repair. A Alta Arthrex cannula was placed in the anterolateral portal and a posterolateral portal made for insertion of arthroscope. The free edge of the tear was grabbed with tendon grasper and upon pulling, able to be mobilized and reduced to humeral footprint. Percutaneously, I placed 2 Arthrex 4.75 Swivel Lock suture anchors along the medial row. Two horizontal mattress sutures of Fibertape were placed through the rotator cuff tissue using a Scorpion shuttleing device in SpeedBridge fashion. The arthroscopic sutures were then into two blue strands and two white strands. The limbs of these sutures were placed through two lateral based 4.75 Swivel Lock suture anchors. Rotator cuff tissue was reduced appropriately to the bone bed. This concluded the two row rotator cuff repair. Final arthroscopic photos were taken, hemostasis achieved, and closure ensued. 3-0 Prolene suture was used to close the portal sites. Sterile dressing and sling/swathe applied. The patient was then awoken from anesthesia and transferred to PACU in stable condition. Secondary to patient's BMI 47 and body habitus (350 lbs), this case had increased complexity and ~30 minutes were added to case duration. Pre-Op/Pre-Procedur e Diagnosis: * No pre-op diagnosis entered * Post-Op/Post-Proced ure Diagnosis: * No post-op diagnosis entered *, Rotator cuff tear, AC joint arthropathy, Primary inflammatory (synovial) disease of the shoulder Estimated Blood Loss: minimal Specimens: None Implantable Devices: Arthrex 4.75 Swivel Lock Anchors x 4 Drains: None Complications: None The primary surgeon/procedurali st performed the entire procedure with assistance. SIGNATURE: Landon Weeks MD PATIENT NAME: Sophie Hicks DATE: November 11, 2019 TIME: 1:06 PM PAGER/CONTACT #: Normal [facility] PROGRESSon 11-11-2019 PROGRESS HNO ID: [id number] Author: Joel Jackson Service: Anesthesiology Author Type: Physician Type: Progress Notes Filed: 11/11/2019 2:21 PM Note Text: Called to PACU for pt c/o chest pain on the surgical side post left shoulder arthroscopy. Pt is tender to palpation diffusely throughout the left chest and upper abdomen. Interventions attempted so far are ice and fentanyl. He does not report shoulder pain. He had an interscalene nerve block preoperatively. No cardiac history, no changes in vitals signs. Still, he has some risk factors for CV disease so I've ordered an EKG and CXR. Must rule out FL and PTX. As his pain is reproducible with palpation, pain related to his procedure/positioni ng is possible. The procedure requires a chest strap to ensure the patient stays safely on the table. Sometimes, especially in larger patients, this can cause postoperative pain. Joel Jackson, Normal [facility] XR CHEST 1V FRONTALon 2019 XR CHEST 1V FRONTAL Final Report DATE OF EXAM: Nov 11 2019 2:38PM AKX [id number] - XR CHEST 1V FRONTAL / PROCEDURE REASON: Post-operative / post-procedure assessment, symptomatic Physician Interpretation EXAMINATION: CHEST RADIOGRAPH (SINGLE VIEW AP OR PA) CLINICAL HISTORY: Post-operative / post-procedure assessment, symptomatic status post left shoulder arthroscopy, rotator cuff repair, subacromial decompression and distal claviclectomy MQ: XC1_5 Comparison: None. RESULT: Limitations: Body habitus and underpenetration. Lines, tubes, and devices: A monitoring wire overlies the right chest.. There are suture anchors bilateral humeral heads. Lungs and pleura: There are low lung volumes. The pulmonary vessels appear prominent but not overtly engorged. There is left basilar opacity. The lateral costophrenic angles are clear. Cardiomediastinal silhouette: Prominent cardiomediastinal silhouette. Other: Mild asymmetric widening left acromioclavicular joint space.. IMPRESSION: Limited single view chest. Low lung volumes with mild vascular prominence. Latter finding may be secondary to hypoventilation or possible vascular congestion. Left basilar opacity, possible postoperative atelectasis. Prominent cardiomediastinal silhouette accentuated by portable frontal technique. Follow-up PA and lateral chest radiographs are recommended when clinically able. A wet reading is made available at time of dictation as requested. Stock Counter: JANNETTE Transcribe Date/Time: Nov 11 2019 2:49P Dictated by : LANDON NG MD This examination was interpreted and the report reviewed and electronically signed by: LANDON NG MD on Nov 11 2019 3:00PM EST Normal [facility] HISTORY PHYSICALon 0 HISTORY PHYSICAL HNO ID: [id number] Author: Shandra Ani Service: ? Author Type: Nurse Practitioner Type: HANDP Filed: 11/04/2019 9:32 AM Note Text: HISTORY AND PHYSICAL EXAMINATION SERVICE DATE: 11/04/2019 SERVICE TIME: 839 Have you been in contact with someone with known coronavirus/COVID19 ? no Have you had pre testing at [facility] in the past 3 years- no PRIMARY CARE PHYSICIAN: Vanessa Mcguire MD REASON FOR VISIT: Sophie Hicks is a a 54 year old male who is scheduled for an ARTHROSCOPY SHOULDER ROTATOR CUFF,ARTHROSCOPY SHOULDER WITH SUBACROMIAL DECOMPRESSION,ARTHR OSCOPY SHOULDER DISTAL CLAVICULECTOMY at the request of Dr. Landon Weeks for Pre procedure History and physical The patient has the following: There is no problem list on file for this patient. Subjective CHIEF COMPLAINT: Complete rotator cuff tear of left shoulder, AC (acromioclavicular) joint arthritis HPI: is a 54 year old male present in presurgical testing.He states he was lifting a water heater out of a basement. He states his partner let go and he had all the weight and he felt it let go. He went to [place] emergency room.He states he had an mri and was told her tore his rotator cuff. He takes ibuprofen. The shoulder pain interferes with lifting and any activity that has him lift his arm. He is right handed. He rates his pain 9/10.Hehad pain when sleeping and leaning on his arm .Surgery was recommended and he agrees to proceed as planned. He is scheduled forRTHROSCOPY SHOULDER ROTATOR CUFF,ARTHROSCOPY SHOULDER WITH SUBACROMIAL DECOMPRESSION,ARTHR OSCOPY SHOULDER DISTAL CLAVICULECTOMY on 11/11/[address] weeks PAST MEDICAL HISTORY Diagnosis Date - Acromioclavicular joint arthritis - Complete rotator cuff tear of left shoulder - Shoulder pain, left PAST SURGICAL HISTORY Procedure Laterality Date - APPENDECTOMY age 18 - PAST SURGICAL HISTORY OF 2009 anterior cervical discectomy and fusion - ROTATOR CUFF REPAIR Right approximately 2004 open FAMILY HISTORY Problem Relation Age of Onset - other (Cancer lung and throat was a smoker) Mother SOCIAL HISTORY: Social History Tobacco Use - Smoking status: Never Smoker - Smokeless tobacco: Never Used Substance Use Topics - Alcohol use: Not Currently - Drug use: Never Prior to Admission medications as of 11/04/19 0837 Medication Sig Last Dose Taking ibuprofen (MOTRIN) 800 mg tablet Take 800 mg by mouth four times daily. aspirin 81 mg chewable tablet Take 81 mg by mouth daily at bedtime. Taking No medication comments found. Anticoagulation therapy: Does not take aspirin or blood thinners ALLERGIES No Active Allergies REVIEW OF SYSTEMS: PAIN ASSESSMENT: 12/21 General: Denies fever, chills, malaise and unexpected weight change. Neuro: Denies dizziness and headaches. Denies history of a TIA or stroke. Denies paralysis. Respiratory: Denies SOB or cough. No history of pneumonia in past 6 weeks. Denies DEMI. Cardiovascular: Denies CP and palpitations. No history of CHF, FL, cardiac surgery or stents. No history of pacemaker or defibrillator. GI: Denies abd pain and N/V/D. Denies esophageal varices. Denies ETOH use greater than 2 drinks a day. : Denies dysuria. Denies burning, frequency and urgency with urination. Denies CKD. Denies history of kidney stones. Endocrine: No history of diabetes or thyroid disease Denies steroid use in the past 30 days. Hematology/vascular : Denies history of bleeding or clotting disorder. Denies anticoagulation use. Denies ASA use. Oncology: no history of cancer. No history of metastasis.No history of chemotherapy in the past 30 days . No history of radiation in the past 90 day Psych: Denies anxiety/depression. Musculoskeletal: + shoulder pain .+ back pain. +left arm weakness. Skin: Denies open sores and rashes. Denies bruising or bleeding Objective VITALS: BP 170/96 Pulse 92 Temp 98.2 Resp 18 Ht 6' 0 (1.83m) Wt 350 lb (158.8kg) SpO2 96% BMI 47.46 kg/(m2). PHYSICAL EXAM: General: NAD. Cooperative. Skin: Skin is warm, no rashes, and no open sores. HEENT: Normocephalic. Cardiovascular: Normal S1 AND S2. No murmur. Lungs: CTA. No respiratory distress. Abdomen: Soft. Extremities: No edema. Limited ROM left shoulder. Neurological: Alert and oriented to person, place, and time. Pulses: radial pulses +2 Diagnostic tests reviewed for today's visit: Lab Value Units Date High Low No results found for: HBA1C PENDING Assessment/Plan Complete rotator cuff tear of left shoulder, AC (acromioclavicular) joint arthritis METS: Climb a flight of stairs or walk up a hill (5.50 METs) Patient denies any chest pain or undue shortness of breath with the above physical activity. ANESTHESIA FINDINGS: Intubation History: No history of difficult intubation Significant Anesthesia Considerations: None Airway History: No history of difficult intubation FAMILY HIISTORY OF ANESTHESIA: No known issues Denies hx of personal or family malignant hyperthermia Denies hx of personal and pseudo cholinesterase. Dentition: snap in teeth Implantable Devices: right shoulder hardware, hardware in neck PLANNED PROCEDURE There is no known pertinent medical condition which may affect margarita-operative course Assessment/Plan Complete rotator cuff tear of left shoulder, AC (acromioclavicular) joint arthritis PLAN Planned Procedure: ARTHROSCOPY SHOULDER ROTATOR CUFF,ARTHROSCOPY SHOULDER WITH SUBACROMIAL DECOMPRESSION,ARTHR OSCOPY SHOULDER DISTAL CLAVICULECTOMY CONSULTS: Patient does not require consults for optimization at this time. The Following Tests/Procedures Have Been Initiated: Covid, mrsa labs are in epic Planned Anesthetic: General Instructions Given to Patient: Instructions located in the after visit summary. Patient given verbal and written preop instructions and voices comprehension and compliance. SIGNATURE: Shandra Law APRN.CNP PATIENT NAME: Sophie Hicks DATE: November 04, 2019 TIME: 8:38 AM PAGER/CONTACT #: [facility] MRSA/MSSA Screenon 0 MRSA/MSSA Screen Test performed at [facility] No Staph aureus or MRSA detected. [facility] Comment on above: Performed By: #### P STSS #### [place] [id number] PT EDon 11-03-2019 PT ED HNO ID: [id number] Author: Yani (Rn) CIRO John Service: Nursing Author Type: Registered Nurse Type: Patient Education Filed: 11/03/2019 9:46 AM Note Text: PRE OP LEARNING ASSESSMENT PROCEDURE/SURGERY: READINESS TO LEARN COGNITIVE ABILITY: Alert and oriented MOTIVATION TO LEARN: Eager FAMILY SUPPORT: Unable to assess - Family not present PATIENT LEARNS BEST BY: Multiple Methods FACTORS AFFECTING LEARNING: None PHYSICAL LIMITATIONS AFFECTING LEARNING: None Electronically Signed By: Yani John RN In Department: [place] SURGERY OR [facility] NASRINN [facility] (AGPOB1) ---- KURTSOPHIE Jordyn ([id number]) 1965 M Date Time Provider Department 10/20/19 LANDON WEEKS During your visit today, we recorded the following information about you: Allergies As of Date: 10/20/2019 (No Known Allergies) Date Reviewed: 10/19/2019 Reviewed by: Wyatt Upton - Fully Assessed Reason for Visit: Insurance Authorization [[id number]] Cmt: [id number] NO PA RQSTD ABN SIGND Prescriptions as of 10/20/2019 Sig: ASPIRIN 81 MG CHEWABLE TABLET Take 81 mg by mouth once felicitas* NAPROXEN 500 MG TABLET Take 1 tablet by mouth twice * GABAPENTIN 300 MG CAPSULE 1 capsule METHYLPREDNISOLONE 4 MG TABLE* As Instructed per package Patient not taking: Reported on 09/08/2019 ASPIRIN-CALCIUM CARBONATE 81 * Take 81 mg by mouth. Problem List As Of Date: 10/20/2019 (None) Encounter Status:Closed by REANNA MANRIQUEZ on 10/20/19 [facility] CNOVon 10-19-2019 CNOV Office Visit (AGHWW1) ---- SOPHIE HICKS ([id number]) 1965 M Date Time Provider Department 10/19/19 9:30 AM LANDON WEEKS AGHWW1 During your visit today, we recorded the following information about you: Respiration Weight Height 20/minute 156.5 kg 1.829 m Wyatt Upton LPN 10/19/2019 9:58 AM Signed REVIEW OF SYSTEMS: GENERAL: Well developed, well nourished. No acute distress PAIN: Pain left shoulder CARDIOVASCULAR: Negative for chest pain, leg swelling and palpations. MSK: joint pain left shoulder SKIN: Negative for lesions, rash, itching, metal sensitivity NEURO: Negative for seizure, trauma, numbness/tingling of extremities. ENDOCRINE: Negative for Diabetes Type 1 and Type 2 HEMATOLOGY: Negative for excessive bleeding, clots, bleeding disorders. Landon Weeks MD 10/19/2019 9:58 AM Signed Chief Complaint: Left shoulder pain Consulting Physician: Elin Orta History: Sophie is a 54 year old male who presents with several weeks of Left shoulder pain. He denies a traumatic injury but reports more of an insidious onset of pain after lifting a water heater. The pain is located along the superior and lateral aspect of the shoulder. The pain is typically dull but can be sharp at times. The pain does not radiate below the elbow. He denies any neck, elbow, or wrist pain. No numbness or tingling in the extremity. The pain is exacerbated by overhead activities such as putting on a shirt, combing their hair, and lifting objects away from their body. No previous injury to the shoulder. He reports significant night pain and difficulty sleeping. He also reports weakness with lifting and overhead activities. No fever, chills, night sweats, weight loss, or other constitutional symptoms. Some popping and clicking noted but no locking or catching. He quantitates the pain as 8/10. History reviewed. No pertinent family history. PAST MEDICAL HISTORY Diagnosis Date - Shoulder pain, left History reviewed. No pertinent surgical history. Social History Tobacco Use - Smoking status: Never Smoker - Smokeless tobacco: Never Used Substance Use Topics - Alcohol use: Not Currently - Drug use: Never Current Outpatient Medications Medication Sig - aspirin 81 mg chewable tablet Take 81 mg by mouth once daily. - gabapentin (NEURONTIN) 300 mg capsule 1 capsule - aspirin-calcium carbonate 81 mg-300 mg calcium(777 mg) tab Take 81 mg by mouth. - methylPREDNISolone (MEDROL, JHONATHAN,) 4 mg Dose-Pack As Instructed per package (Patient not taking: Reported on 09/08/2019 ) No current facility-administer ed medications for this visit. ALLERGIES No Known Allergies Physical Examination: Patient is alert, oriented and in no acute distress. Examination of the C-spine reveals no palpable tenderness. There is no atrophy or asymmetry. The cervical spine has normal range of motion. There is normal cervical lordosis. Examination of the shoulder reveals no evidence of atrophy and the skin is intact. No obvious soft tissue or bony abnormality. He has no pain with palpation along the SC joints. positive pain with palpation at AC joint. He does have pain along the greater tuberosity and subacromial space. He exhibits active FE to 60 degrees with forward elevation and passively to 100 degrees. A positive impingement sign and positive Grimm test are noted. Crepitation noted along the subacromial space with ROM. He has equal external and internal rotation passively and actively as compared to the other side. He has a positive empty can test as compared to the other side. He has a negative drop arm test. External rotation testing reveals good strength as well as a negative lift-off test is noted. A negative cross body adduction test is seen as well as negative Yergason?s, Speed?s, and O? Carlos A?s tests. He has full ROM of both elbows and wrists. Good pulses and good cap refill noted. Gross sensation is intact. Reflexes are symmetric bilaterally. The opposite joint reveals full ROM, no pain with palpation, good stability and good strength. X-ray Evaluation: An AP, Y-view, and axillary views were reviewed today which reveal a Type II acromion. The glenohumeral joint appears intact. No tumors or fractures noted. No significant OA changes noted. MRI: 1. ?Full-thickness tear of the supraspinatus tendon as detailed above. ? There is a small volume of tendon fibers anterior and posterior to the tear which remain intact. 2. ?Infraspinatus tendinosis and mild partial-thickness tear 3. ?AC joint arthropathy. ?Undersurface spurring which exerts mass effect upon the supraspinatus myotendinous junction. 4. ?There is suspected moderate atrophy of the teres minor muscle. ?No evidence of muscular edema or tendon tear. ?This is nonspecific. ?No space-occupying mass is seen within the quadrilateral space. Assessment: Complete tear of left rotator cuff, unspecified whether traumatic (primary encounter diagnosis) Ac joint arthropathy Plan: The patient understands the diagnosis, treatment options both operative and non-operative, their associated risks, complications, benefits and failures and wishes to proceed with surgical intervention. The surgery will consist of Left shoulder arthroscopy, subacromial decompression, AC joint resection, RTC repair versus debridement. Possibility exists of a biceps tenotomy or tenodesis. A cosmetic biceps deformity may occur. He understands that surgery cannot be guaranteed to relieve all the symptoms and there is a small but unlikely chance that the symptoms could be worse rather than better. He understands the risks as significant as can occur, including but no limited to the additional risks of loss of limb, infection, deep venous thrombosis, pulmonary embolism, failure of this procedure, wound healing problems, neurovascular injury, continued pain, weakened and muscle atrophy, reflex sympathetic dystrophy and scarring and stiffness. He understands, all questions were answered, and the patient has been provided an informed consent. Landon Weeks MD Referring Provider: ELIN ORTA [[id number]] Allergies As of Date: 10/19/2019 (No Known Allergies) Date Reviewed: 10/19/2019 Reviewed by: Wyatt Mares) Little - Fully Assessed Reason for Visit: New Patient [172] Cmt: pt states he is right handed. pt states he was lifting out a water heater half full of water. 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 for pain. Take with food.Disp: 60 tabletRfl: 1 Prescriptions as of 10/19/2019 Sig: ASPIRIN 81 MG CHEWABLE TABLET Take 81 mg by mouth once felicitas* GABAPENTIN 300 MG CAPSULE 1 capsule ASPIRIN-CALCIUM CARBONATE 81 * Take 81 mg by mouth. NAPROXEN 500 MG TABLET Take 1 tablet by mouth twice * METHYLPREDNISOLONE 4 MG TABLE* As Instructed per package Patient not taking: Reported on 09/08/2019 Problem List As Of Date: 10/19/2019 (None) Prescriptions ordered this encounter Disp Refills Start End NAPROXEN 500 MG TABLET 60 t* 1 10/19/2019 Route: ORAL Sig: Take 1 tablet by mouth twice daily as needed (for pain). for pain. Take with food. Disposition: Return for Surgery. Follow-up and Disposition History Recorded Encounter Status:Closed by LANDON WEEKS MD on 10/19/19 Normal [facility] HOSPon 10-19-2019 HOSP Patient:Sophie Hicks MRN: Height:6' 0(1.829 m) Weight:350 lb (158.759 kg) Outpatient Medications as of 11/11/19: ibuprofen (MOTRIN) 800 mg tablet aspirin 81 mg chewable tablet Admission/Clinic Administered Medications as of 11/11/19: lidocaine 10 mg/mL (1 %) 1-2 mg injection (XYLOCAINE) lactated ringers infusion ceFAZolin iv piggyback 2 g in D5W (iso-osmotic) 100 mL (ANCEF) lactated Ringers irrigation irrigation solution EPINEPHrine HCl (PF) 1 mg/mL (1 mL) injection Problem List: Obesity, Class III, BMI >= 40 [E66.01] Allergies: No Known Allergies Date Verified:11/11/19 Lab Values No results within the last 30 days for the following basenames: K,HCT Progress Notes (ORTH AG HWC BATH): Wyatt Upton LPN 10/19/2019 9:58 AM Signed REVIEW OF SYSTEMS: GENERAL: Well developed, well nourished. No acute distress PAIN: Pain left shoulder CARDIOVASCULAR: Negative for chest pain, leg swelling and palpations. MSK: joint pain left shoulder SKIN: Negative for lesions, rash, itching, metal sensitivity NEURO: Negative for seizure, trauma, numbness/tingling of extremities. ENDOCRINE: Negative for Diabetes Type 1 and Type 2 HEMATOLOGY: Negative for excessive bleeding, clots, bleeding disorders. Landon Weeks MD 10/19/2019 9:58 AM Signed Chief Complaint: Left shoulder pain Consulting Physician: Elin Orta History: Sophie is a 54 year old male who presents with several weeks of Left shoulder pain. He denies a traumatic injury but reports more of an insidious onset of pain after lifting a water heater. The pain is located along the superior and lateral aspect of the shoulder. The pain is typically dull but can be sharp at times. The pain does not radiate below the elbow. He denies any neck, elbow, or wrist pain. No numbness or tingling in the extremity. The pain is exacerbated by overhead activities such as putting on a shirt, combing their hair, and lifting objects away from their body. No previous injury to the shoulder. He reports significant night pain and difficulty sleeping. He also reports weakness with lifting and overhead activities. No fever, chills, night sweats, weight loss, or other constitutional symptoms. Some popping and clickingnoted but no locking or catching. He quantitates the pain as 8/10. History reviewed. No pertinent family history. PAST MEDICAL HISTORY Diagnosis Date - Shoulder pain, left History reviewed. No pertinent surgical history. Social History Tobacco Use - Smoking status: Never Smoker - Smokeless tobacco: Never Used Substance Use Topics - Alcohol use: Not Currently - Drug use: Never Current Outpatient Medications Medication Sig - aspirin 81 mg chewable tablet Take 81 mg by mouth once daily. - gabapentin (NEURONTIN) 300 mg capsule 1 capsule - aspirin-calcium carbonate 81 mg-300 mg calcium(777 mg) tab Take 81 mg by mouth. - methylPREDNISolone (MEDROL, JHONATHAN,) 4 mg Dose-Pack As Instructed per package (Patient not taking: Reported on 09/08/2019 ) No current facility-administer ed medications for this visit. ALLERGIES No Known Allergies Physical Examination: Patient is alert, oriented and in no acute distress. Examination of the C-spine reveals no palpable tenderness. There is no atrophy or asymmetry. The cervical spine has normal range of motion. There is normal cervical lordosis. Examination of the shoulder reveals no evidence of atrophy and the skin is intact. No obvious soft tissue or bony abnormality. He has no pain with palpation along the SC joints. positive pain with palpation at AC joint. He does have pain along the greater tuberosity and subacromial space. He exhibits active FE to 60 degrees with forward elevation and passively to 100 degrees. A positive impingement sign and positive Grimm test are noted. Crepitation noted along the subacromial space with ROM. He has equal external and internal rotation passively and actively as compared to the other side. He has a positive empty can test as compared to the other side. He has a negative drop arm test. External rotation testing reveals good strength as well as a negative lift-off test is noted. A negative cross body adduction test is seen as well as negative Yergason?s, Speed?s, and O? Carlos A?s tests. He has full ROM of both elbows and wrists. Good pulses and good cap refill noted. Gross sensation is intact. Reflexes are symmetric bilaterally. The opposite joint reveals full ROM, no pain with palpation, good stability and good strength. X-ray Evaluation: An AP, Y-view, and axillary views were reviewed today which reveal a Type II acromion. The glenohumeral joint appears intact. No tumors or fractures noted. No significant OA changes noted. MRI: 1. ?Full-thickness tear of the supraspinatus tendon as detailed above. ? There is a small volume of tendon fibers anterior and posterior to the tear which remain intact. 2. ?Infraspinatus tendinosis and mild partial-thickness tear 3. ?AC joint arthropathy. ?Undersurface spurring which exerts mass effect upon the supraspinatus myotendinous junction. 4. ?There is suspected moderate atrophy of the teres minor muscle. ?No evidence of muscular edema or tendon tear. ?This is nonspecific. ?No space-occupying mass is seen within the quadrilateral space. Assessment: Complete tear of left rotator cuff, unspecified whether traumatic (primary encounter diagnosis) Ac joint arthropathy Plan: The patient understands the diagnosis, treatment options both operative and non-operative, their associated risks, complications, benefits and failures and wishes to proceed with surgical intervention. The surgery will consist of Left shoulder arthroscopy, subacromial decompression, AC joint resection, RTC repair versus debridement. Possibility exists of a biceps tenotomy or tenodesis. A cosmetic biceps deformity may occur. He understands that surgery cannot be guaranteed to relieve all the symptoms and there is a small but unlikely chance that the symptoms could be worse rather than better. He understands the risks as significant as can occur, including but no limited to the additional risks of loss of limb, infection, deep venous thrombosis, pulmonary embolism, failure of this procedure, wound healing problems, neurovascular injury, continued pain, weakened and muscle atrophy, reflex sympathetic dystrophy and scarring and stiffness. He understands, all questions were answered, and the patient has been provided an informed consent. Landon Weeks MD [facility] PROGRESSon 10-19-2019 PROGRESS HNO ID: [id number] Author: Landon Weeks Service: ? Author Type: Physician Type: Progress Notes Filed: 10/19/2019 9:58 AM Note Text: Chief Complaint: Left shoulder pain Consulting Physician: Elin Orta History: Sophie is a 54 year old male who presents with several weeks of Left shoulder pain. He denies a traumatic injury but reports more of an insidious onset of pain after lifting a water heater. The pain is located along the superior and lateral aspect of the shoulder. The pain is typically dull but can be sharp at times. The pain does not radiate below the elbow. He denies any neck, elbow, or wrist pain. No numbness or tingling in the extremity. The pain is exacerbated by overhead activities such as putting on a shirt, combing their hair, and lifting objects away from their body. No previous injury to the shoulder. He reports significant night pain and difficulty sleeping. He also reports weakness with lifting and overhead activities. No fever, chills, night sweats, weight loss, or other constitutional symptoms. Some popping and clicking noted but no locking or catching. He quantitates the pain as 8/10. History reviewed. No pertinent family history. PAST MEDICAL HISTORY Diagnosis Date - Shoulder pain, left History reviewed. No pertinent surgical history. Social History Tobacco Use - Smoking status: Never Smoker - Smokeless tobacco: Never Used Substance Use Topics - Alcohol use: Not Currently - Drug use: Never Current Outpatient Medications Medication Sig - aspirin 81 mg chewable tablet Take 81 mg by mouth once daily. - gabapentin (NEURONTIN) 300 mg capsule 1 capsule - aspirin-calcium carbonate 81 mg-300 mg calcium(777 mg) tab Take 81 mg by mouth. - methylPREDNISolone (MEDROL, JHONATHAN,) 4 mg Dose-Pack As Instructed per package (Patient not taking: Reported on 09/08/2019 ) No current facility-administer ed medications for this visit. ALLERGIES No Known Allergies Physical Examination: Patient is alert, oriented and in no acute distress. Examination of the C-spine reveals no palpable tenderness. There is no atrophy or asymmetry. The cervical spine has normal range of motion. There is normal cervical lordosis. Examination of the shoulder reveals no evidence of atrophy and the skin is intact. No obvious soft tissue or bony abnormality. He has no pain with palpation along the SC joints. positive pain with palpation at AC joint. He does have pain along the greater tuberosity and subacromial space. He exhibits active FE to 60 degrees with forward elevation and passively to 100 degrees. A positive impingement sign and positive Grimm test are noted. Crepitation noted along the subacromial space with ROM. He has equal external and internal rotation passively and actively as compared to the other side. He has a positive empty can test as compared to the other side. He has a negative drop arm test. External rotation testing reveals good strength as well as a negative lift-off test is noted. A negative cross body adduction test is seen as well as negative Yergason?s, Speed?s, and O? Carlos A?s tests. He has full ROM of both elbows and wrists. Good pulses and good cap refill noted. Gross sensation is intact. Reflexes are symmetric bilaterally. The opposite joint reveals full ROM, no pain with palpation, good stability and good strength. X-ray Evaluation: An AP, Y-view, and axillary views were reviewed today which reveal a Type II acromion. The glenohumeral joint appears intact. No tumors or fractures noted. No significant OA changes noted. MRI: 1. ?Full-thickness tear of the supraspinatus tendon as detailed above. ? There is a small volume of tendon fibers anterior and posterior to the tear which remain intact. 2. ?Infraspinatus tendinosis and mild partial-thickness tear 3. ?AC joint arthropathy. ?Undersurface spurring which exerts mass effect upon the supraspinatus myotendinous junction. 4. ?There is suspected moderate atrophy of the teres minor muscle. ?No evidence of muscular edema or tendon tear. ?This is nonspecific. ?No space-occupying mass is seen within the quadrilateral space. Assessment: Complete tear of left rotator cuff, unspecified whether traumatic (primary encounter diagnosis) Ac joint arthropathy Plan: The patient understands the diagnosis, treatment options both operative and non-operative, their associated risks, complications, benefits and failures and wishes to proceed with surgical intervention. The surgery will consist of Left shoulder arthroscopy, subacromial decompression, AC joint resection, RTC repair versus debridement. Possibility exists of a biceps tenotomy or tenodesis. A cosmetic biceps deformity may occur. He understands that surgery cannot be guaranteed to relieve all the symptoms and there is a small but unlikely chance that the symptoms could be worse rather than better. He understands the risks as significant as can occur, including but no limited to the additional risks of loss of limb, infection, deep venous thrombosis, pulmonary embolism, failure of this procedure, wound healing problems, neurovascular injury, continued pain, weakened and muscle atrophy, reflex sympathetic dystrophy and scarring and stiffness. He understands, all questions were answered, and the patient has been provided an informed consent. Landon Weeks MD [facility] PROGRESS HNO ID: [id number] Author: Wyatt Mares) Little Service: ? Author Type: LICENSED NURSE Type: Progress Notes Filed: 10/19/2019 9:58 AM Note Text: REVIEW OF SYSTEMS: GENERAL: Well developed, well nourished. No acute distress PAIN: Pain left shoulder CARDIOVASCULAR: Negative for chest pain, leg swelling and palpations. MSK: joint pain left shoulder SKIN: Negative for lesions, rash, itching, metal sensitivity NEURO: Negative for seizure, trauma, numbness/tingling of extremities. ENDOCRINE: Negative for Diabetes Type 1 and Type 2 HEMATOLOGY: Negative for excessive bleeding, clots, bleeding disorders. Normal [facility] MRI SHOULDER WO IVCON LTon 0 10-18-2019 MRI SHOULDER WO IVCON LT Final Report DATE OF EXAM: Oct 18 2019 7:06AM [facility] [id number] - MRI SHOULDER WO IVCON LT / PROCEDURE REASON: multiple diagnoses Physician Interpretation Examination: MRI SHOULDER WO IVCON LT HISTORY: Pain following a lifting injury Acute pain of left shoulder Rotator cuff strain, left, initial encounter . Technique: -- . Multiplanar multisequence noncontrast exam of the : Left shoulder. Exam Date: 10/18/2019 7:06 AM Comparison: Radiograph 09/08/2019 RESULT: AC JOINT: Moderate to severe degenerative change. There is fluid within the acromioclavicular joint. There is spurring of the distal clavicle which exerts some mass effect upon the supraspinatus myotendinous junction. SUPRASPINATUS TENDON: There is moderate tendinosis. There is a full-thickness tear of the distal tendon insertion. This is at the midpoint anterior to posterior. A few of the more anterior fibers and posterior fibers remain grossly intact. There is localized tendon retraction of approximately 1.5 cm. INFRASPINATUS TENDON: There is tendinosis. Mild appearing partial thickness articular sided tear. No high-grade or full-thickness tear. TERES MINOR TENDON: Intact. SUBSCAPULARIS TENDON: Normal in appearance. No evidence of tear. PROXIMAL LONG HEAD BICEPS TENDON: Normal in appearance and location. GLENOID LABRUM: Somewhat poorly assessed secondary to motion artifact and lack of intra-articular contrast. No obvious labral tear. JOINT EFFUSION: None BURSA: Not applicable MARROW/FRACTURE: No significant marrow abnormality or evidence of fracture. GLENOHUMERAL JOINT OSTEOARTHRITIS: No significant glenohumeral joint osteoarthritis. IMPRESSION: 1. Full-thickness tear of the supraspinatus tendon as detailed above. There is a small volume of tendon fibers anterior and posterior to the tear which remain intact. 2. Infraspinatus tendinosis and mild partial-thickness tear 3. AC joint arthropathy. Undersurface spurring which exerts mass effect upon the supraspinatus myotendinous junction. 4. There is suspected moderate atrophy of the teres minor muscle. No evidence of muscular edema or tendon tear. This is nonspecific. No space-occupying mass is seen within the quadrilateral space. Stock Counter: PSCB Transcribe Date/Time: Oct 18 2019 10:25A Dictated by : MISTY PATEL MD This examination was interpreted and the report reviewed and electronically signed by: MISTY PATEL MD on Oct 18 2019 10:33AM EST Normal [facility] Otheron 10-18-2019 [facility] CNPNon 09-21-2019 CNPN Telephone (AGPOB1) ---- SOPHIE HICKS ([id number]) 1965 M Date Time Provider Department 09/21/19 ELIN ORTA AGPOB1 During your visit today, we recorded the following information about you: Jj Scott CMA 09/21/2019 8:14 AM Signed Patient was not able to get MRI of LEFT shoulder today because patient was very anxious and also the machine was too small. Radiology recommended patient request medication and reschedule MRI at [facility]. NAN Lagunas MD 09/21/2019 2:21 PM Signed I will order Valium protocol. Rx ordered but went to print (not electronic). Check details with patient. 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 MRI is rescheduled for 10/18/2019 @ 6:20am [facility], pt notified of date and time. Jj Scott CMA Allergies As of Date: 09/21/2019 (No Known Allergies) Date Reviewed: 09/08/2019 Reviewed by: Elin Orta - Fully Assessed Reason for Visit: Patient Update [1234] Primary Visit Diagnosis:Incomplet e rotator cuff tear or rupture of left shoulder, not specified as traumatic [M75.112] Other Visit Diagnosis:Test anxiety [F41.8] Order(s):[START ON 09/23/2019] diazePAM (VALIUM) 5 mg tabletFor Test Anxiety: Take valium 5 -10 mg night before procedure, Take valium 5 - 10 mg morning of procedure, Take valium 5 - 10 mg just before procedure Have a service parts driver transport you to and from the testing site. Have a service parts driver with you. Do not start before September 23, 2019.Disp: 6 tabletRfl: 0 Prescriptions as of 09/21/2019 Sig: DIAZEPAM 5 MG TABLET For Test Anxiety: Take valiu* IBUPROFEN 800 MG TABLET Take 1 tablet by mouth three * GABAPENTIN 300 MG CAPSULE 1 capsule METHYLPREDNISOLONE 4 MG TABLE* As Instructed per package Patient not taking: Reported on 09/08/2019 ASPIRIN-CALCIUM CARBONATE 81 * Take 81 mg by mouth. Problem List As Of Date: 09/21/2019 (None) Prescriptions ordered this encounter Disp Refills Start End DIAZEPAM 5 MG TABLET 6 ta* 0 09/23/2019 09/27/2019 Class: Print RX Sig: For Test Anxiety: Take valium 5 -10 mg night before procedure, Take valium 5 - 10 mg morning of procedure, Take valium 5 - 10 mg just before procedure Have a service parts driver transport you to and from the testing site. Have a service parts driver with you. Do not start before September 23, 2019. Encounter Status:Closed by ELIN ORTA MD on 09/21/19 [facility] 09-08-2019 [facility] Office Visit (AGHWW1) ---- SOPHIE HICKS ([id number]) 1965 M Date Time Provider Department 09/08/19 1:00 PM ELIN ORTA [id number] During your visit today, we recorded the following information about you: Respiration Weight Height 16/minute 156.5 kg 1.829 m Elin Orta MD 09/08/2019 1:56 PM Signed IN-PERSON OFFICE ENCOUNTER - NEW PROBLEM September 08, 2019 Primary Care Physician:Vanessa Mcguire MD Patient Status:New Patient with New Problem Previous patient of this practice? No Chief Complaint/Reason for Encounter: New and Pain of the Left Shoulder Encounter for New Problem HPI:, Body Location: LEFT shoulder Onset date: 1 year, worse x 1-2 mos What happened?: possible overuse lifting water heaters , Injury? No , Overuse? Yes Current Symptoms: pain, + night pain, decreased ROM, weakness Frequency of Symptoms: Always Symptoms are becoming: Worse . Current Treatment: Ibuprofen 800 mg, he has had phys therapy and it did not help. 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 History reviewed. No pertinent past medical history. HIV SCREENING due on 10/09/1981 DTAP,TDAP,TD(1 - Tdap) due on 10/09/1982 LIPID SCREEN due on 10/09/1998 HEPATITIS C SCREENING due on 2007 COLORECTAL CANCER SCREENING,SEE MODIFIER due on 10/09/2013 SHINGRIX VACCINE(1 of 2) due on 10/09/2013 PROSTATE CANCER SCREENING DISCUSSION due on 10/09/2018 INFLUENZA(Season Ended) due on 12/13/2019 DIABETES SCREEN due on 12/14/2021 History reviewed. No pertinent surgical history. Medications: ibuprofen (MOTRIN) 800 mg tablet, Take 1 tablet by mouth three times daily with meals for 60 doses. gabapentin (NEURONTIN) 300 mg capsule, 1 capsule methylPREDNISolone (MEDROL, JHONATHAN,) 4 mg Dose-Pack, As Instructed per package aspirin-calcium carbonate 81 mg-300 mg calcium(777 mg) tab, Take 81 mg by mouth. e- [id number] [place] [id number] - [address] [place] [address] - [phone] NEXT TO [facility] [address] [place] [id number] History reviewed. No pertinent family history. Family History of Blood clots: No Family History of Arthritis: Yes Employer And Job Title: None on file Years Of Education Completed: Not specified Marital Status: Social History Tobacco Use - Smoking status: Never Smoker - Smokeless tobacco: Never Used Substance Use Topics - Alcohol use: Not Currently - Drug use: Never Allergies: Patient has no known allergies. Review of systems: Constitutional: Within Normal Limits Resp 16 Ht 6' 0 (1.83m) Wt 345 lb (156.5kg) BMI 46.78 kg/(m2). PHYSICIAL EXAM Affect: Appropriate Appearance: well developed, well nourished and well groomed Mental Status:alert, oriented and cooperative Skin: clear Vascular: Palpable pulse on affected limb Neurologic: Light Touch Sensation: present and normal LEFT Shoulder: Observation / Palpitation: non tender, Range of Motion: 0-80 FF, IR to GT, Stability: + impingement, Strength: 4.9/5 AB, + Tammy, + ER lag, + lift off Cervical Spine: Obs/Palp 3+ spasm, ROM -10 to 5, Stability slight kyphosis, Strength: 5/5 extension DATA: X-ray ordered reviewed Interpretation: LEFT shoulder: mild GT sclerosis, GH is satisfactory, some AC arthritis Diagnoses: 1. Rotator cuff strain, left, initial encounter - ICD9: 840.4, ICD10: S46.012A (primary diagnosis) 2. Acute pain of left shoulder - ICD9: 719.41, ICD10: M25.512 Probable RC tear Plan: with [place] Decision Making Continue symptomatic treatment and Further diagnostics Recommend MRI of LEFT shoulder. Continue ibuprofen as directed. The patient was counseled on the potential complications of non-steroidal anti-inflammatory medicines (example: ibuprofen) and acetaminophen. They were asked to read the package insert. They were informed that long-term use should have lab monitoring by their primary care physician. Recommend Tylenol as directed. We will call with MRI results. Follow up: We will call with MRI results and refer as needed to shoulder subspecialist. Education provided: Detailed explanation of Diagnosis and Treatment Plan Sophie was seen today for new and pain. Diagnoses and all orders for this visit: Rotator cuff strain, left, initial encounter - MRI SHOULDER WO IVCON LT; Future - ibuprofen (MOTRIN) 800 mg tablet; Take 1 tablet by mouth three times daily with meals for 60 doses. Acute pain of left shoulder - MRI SHOULDER WO IVCON LT; Future Attestation: Scribe Statement: Pankaj Beltre CMA am scribing for , and in the presence of, Dr You CHAN. Physician Statement: I, Dr. You CHAN, personally performed the services described in this documentation, as scribed by Zee Beltre CMA in my presence, and it is both accurate and complete. Elin Orta MD 09/08/2019 1:48 PM Signed We will call with MRI results... or You can call my office directly at [phone] for questions AND appointments during daytime working hours. Referring Provider: GILMER GORE [[id number]] Allergies As of Date: 09/08/2019 (No Known Allergies) Date Reviewed: 09/08/2019 Reviewed by: Elin Orta - Fully Assessed Reason for Visit: New [[id number]] Pain [78] Primary Visit Diagnosis:Rotator cuff strain, left, initial encounter [S46.012A] Other Visit Diagnosis:Acute pain of left shoulder [M25.512] Order(s):MRI SHOULDER WO LISEON [[id number]] Order #: [id number] FUTURE ibuprofen (MOTRIN) 800 mg tabletTake 1 tablet by mouth three times daily with meals for 60 doses.Disp: 60 tabletRfl: 2 Prescriptions as of 09/08/2019 Sig: IBUPROFEN 800 MG TABLET Take 1 tablet by mouth three * GABAPENTIN 300 MG CAPSULE 1 capsule METHYLPREDNISOLONE 4 MG TABLE* As Instructed per package Patient not taking: Reported on 09/08/2019 ASPIRIN-CALCIUM CARBONATE 81 * Take 81 mg by mouth. Problem List As Of Date: 09/08/2019 (None) Other instructions from your clinician: We will call with MRI results... or You can call my office directly at [phone] for questions AND appointments during daytime working hours. Prescriptions ordered this encounter Disp Refills Start End IBUPROFEN 800 MG TABLET 60 t* 2 09/08/2019 09/28/2019 Route: ORAL Sig: Take 1 tablet by mouth three times daily with meals for 60 doses. Disposition: Return if symptoms worsen or fail to improve, for We will call with MRI results. Follow-up and Disposition History Recorded Encounter Status:Closed by ELIN ORTA MD on 09/08/19 [facility] KURTSOPHIE Jordyn ([id number]) 1965 M Date Time Provider Department 09/08/19 ELIN ORTA AGPOB1 During your visit today, we recorded the following information about you: Allergies As of Date: 09/08/2019 (No Known Allergies) Date Reviewed: 04/22/2019 Reviewed by: Sandra Mckenzie MA - Fully Assessed Reason for Visit: Orders [681] Cmt: Xray Primary Visit Diagnosis:Left shoulder pain, unspecified chronicity [M25.512] Order(s):XR SHOULDER GENERAL 3V OR MORE AP/TRUE AP/OTHER LT [[id number]] Order #: [id number] FUTURE Prescriptions as of 09/08/2019 Sig: GABAPENTIN 300 MG CAPSULE 1 capsule METHYLPREDNISOLONE 4 MG TABLE* As Instructed per package ASPIRIN-CALCIUM CARBONATE 81 * Take 81 mg by mouth. Problem List As Of Date: 09/08/2019 (None) Encounter Status:Closed by JJ SCOTT CMA on 09/08/19 [facility] PROGRESSon 09-08-2019 PROGRESS HNO ID: [id number] Author: Elin Orta Service: ? Author Type: Physician Type: Progress Notes Filed: 09/08/2019 1:56 PM Note Text: IN-PERSON OFFICE ENCOUNTER - NEW PROBLEM September 08, 2019 Primary Care Physician:Vanessa Mcguire MD Patient Status:New Patient with New Problem Previous patient of this practice? No Chief Complaint/Reason for Encounter: New and Pain of the Left Shoulder Encounter for New Problem HPI:, Body Location: LEFT shoulder Onset date: 1 year, worse x 1-2 mos What happened?: possible overuse lifting water heaters , Injury? No , Overuse? Yes Current Symptoms: pain, + night pain, decreased ROM, weakness Frequency of Symptoms: Always Symptoms are becoming: Worse . Current Treatment: Ibuprofen 800 mg, he has had phys therapy and it did not help. 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 History reviewed. No pertinent past medical history. HIV SCREENING due on 10/09/1981 DTAP,TDAP,TD(1 - Tdap) due on 10/09/1982 LIPID SCREEN due on 10/09/1998 HEPATITIS C SCREENING due on 2007 COLORECTAL CANCER SCREENING,SEE MODIFIER due on 10/09/2013 SHINGRIX VACCINE(1 of 2) due on 10/09/2013 PROSTATE CANCER SCREENING DISCUSSION due on 10/09/2018 INFLUENZA(Season Ended) due on 12/13/2019 DIABETES SCREEN due on 12/14/2021 History reviewed. No pertinent surgical history. Medications: ibuprofen (MOTRIN) 800 mg tablet, Take 1 tablet by mouth three times daily with meals for 60 doses. gabapentin (NEURONTIN) 300 mg capsule, 1 capsule methylPREDNISolone (MEDROL, JHONATHAN,) 4 mg Dose-Pack, As Instructed per package aspirin-calcium carbonate 81 mg-300 mg calcium(777 mg) tab, Take 81 mg by mouth. e- [id number] [place] [id number] - [address] [place] [address] - [phone] NEXT TO GEORGE DEMPSEY [address] [place] [id number] History reviewed. No pertinent family history. Family History of Blood clots: No Family History of Arthritis: Yes Employer And Job Title: None on file Years Of Education Completed: Not specified Marital Status: Social History Tobacco Use - Smoking status: Never Smoker - Smokeless tobacco: Never Used Substance Use Topics - Alcohol use: Not Currently - Drug use: Never Allergies: Patient has no known allergies. Review of systems: Constitutional: Within Normal Limits Resp 16 Ht 6' 0 (1.83m) Wt 345 lb (156.5kg) BMI 46.78 kg/(m2). PHYSICIAL EXAM Affect: Appropriate Appearance: well developed, well nourished and well groomed Mental Status:alert, oriented and cooperative Skin: clear Vascular: Palpable pulse on affected limb Neurologic: Light Touch Sensation: present and normal LEFT Shoulder: Observation / Palpitation: non tender, Range of Motion: 0-80 FF, IR to GT, Stability: + impingement, Strength: 4.9/5 AB, + Tammy, + ER lag, + lift off Cervical Spine: Obs/Palp 3+ spasm, ROM -10 to 5, Stability slight kyphosis, Strength: 5/5 extension DATA: X-ray ordered reviewed Interpretation: LEFT shoulder: mild GT sclerosis, GH is satisfactory, some AC arthritis Diagnoses: 1. Rotator cuff strain, left, initial encounter - ICD9: 840.4, ICD10: S46.012A (primary diagnosis) 2. Acute pain of left shoulder - ICD9: 719.41, ICD10: M25.512 Probable RC tear Plan: with [place] Decision Making Continue symptomatic treatment and Further diagnostics Recommend MRI of LEFT shoulder. Continue ibuprofen as directed. The patient was counseled on the potential complications of non-steroidal anti-inflammatory medicines (example: ibuprofen) and acetaminophen. They were asked to read the package insert. They were informed that long-term use should have lab monitoring by their primary care physician. Recommend Tylenol as directed. We will call with MRI results. Follow up: We will call with MRI results and refer as needed to shoulder subspecialist. Education provided: Detailed explanation of Diagnosis and Treatment Plan Sophie was seen today for new and pain. Diagnoses and all orders for this visit: Rotator cuff strain, left, initial encounter - MRI SHOULDER WO IVCON LT; Future - ibuprofen (MOTRIN) 800 mg tablet; Take 1 tablet by mouth three times daily with meals for 60 doses. Acute pain of left shoulder - MRI SHOULDER WO IVCON LT; Future Attestation: Scribe Statement: I Zee Beltre CMA am scribing for , and in the presence of, Dr You CHAN. Physician Statement: I, Dr. You CHAN, personally performed the services described in this documentation, as scribed by Zee Beltre CMA in my presence, and it is both accurate and complete. Normal [facility] Vital Signs Date Time Vital Sign Value Performing Clinician Gricel becker 02-15-2025 10:33-0500 Body temperature 97.59 [degF] Joel Rodrigues Jr., DO Work Phone: [facility] [employer] 02-15-2025 10:33-0500 Diastolic blood pressure 88 mm[Hg] Joel Rodrigues Jr., DO Work Phone: [facility] [employer] 02-15-2025 10:33-0500 Heart rate 74 /min Joel Rodrigues Jr., DO Work Phone: [facility] [employer] 02-15-2025 10:33-0500 Respiratory rate 16 /min Joel Rodrigues Jr., DO Work Phone: [facility] [employer] 02-15-2025 10:33-0500 SaO2% (BldA) [Mass fraction] 100 % Joel Rodrigues Jr., DO Work Phone: [facility] [employer] 02-15-2025 10:33-0500 Systolic blood pressure 149 mm[Hg] Joel Rodrigues Jr., DO Work Phone: [facility] [employer] 02-01-2025 14:37-0400 Body height 188 cm Elba Rojas DO Work Phone: [facility] [employer] 02-01-2025 14:37-0400 Body mass index (BMI) [Ratio] 39.54 kg/m2 Elba Rojas DO Work Phone: [facility] [employer] 02-01-2025 14:37-0400 Body weight 139.71 kg Elba Rojas DO Work Phone: [facility] [employer] 02-01-2025 14:37-0400 Diastolic blood pressure 79 mm[Hg] Elba Rojas DO Work Phone: [facility] [employer] 02-01-2025 14:37-0400 Heart rate 86 /min Elba Rojas DO Work Phone: [facility] [employer] 02-01-2025 14:37-0400 Systolic blood pressure 139 mm[Hg] Elba Rojas DO Work Phone: [facility] [employer] 01-26-2025 08:03-0400 Body height 188 cm Elba Rojas DO Work Phone: [facility] [employer] 01-26-2025 08:03-0400 Body mass index (BMI) [Ratio] 39.42 kg/m2 Elba Rojas DO Work Phone: [facility] [employer] 01-26-2025 08:03-0400 Body weight 139.25 kg Elba Rojas DO Work Phone: [facility] [employer] 01-26-2025 08:03-0400 Diastolic blood pressure 56 mm[Hg] Elba Rojas DO Work Phone: [facility] [employer] 01-26-2025 08:03-0400 Heart rate 78 /min Elba Rojas DO Work Phone: [facility] [employer] 01-26-2025 08:03-0400 Systolic blood pressure 94 mm[Hg] Elba Rojas DO Work Phone: [facility] [employer] 11-23-2024 13:35-0400 Body height 182.9 cm Elba Rojas DO Work Phone: [facility] [employer] 11-23-2024 13:35-0400 Body mass index (BMI) [Ratio] 40.96 kg/m2 Elba Rojas DO Work Phone: [facility] [employer] 11-23-2024 13:35-0400 Body weight 136.99 kg Elba Rojas DO Work Phone: [facility] [employer] 11-23-2024 13:35-0400 Diastolic blood pressure 77 mm[Hg] Elba Rojas DO Work Phone: [facility] [employer] 11-23-2024 13:35-0400 Heart rate 82 /min Elba Rojas DO Work Phone: [facility] [employer] 11-23-2024 13:35-0400 Systolic blood pressure 130 mm[Hg] Elba Rojas DO Work Phone: [facility] [employer] 09-27-2024 10:05-0400 Body temperature 98.8 [degF] Louisa Pozsgay DO Work Phone: [facility] [employer] 09-27-2024 10:05-0400 Diastolic blood pressure 85 mm[Hg] Louisa Pozsgay DO Work Phone: [facility] [employer] 09-27-2024 10:05-0400 Heart rate 75 /min Louisa Pozsgay DO Work Phone: [facility] [employer] 09-27-2024 10:05-0400 Respiratory rate 19 /min Louisa Pozsgay DO Work Phone: [facility] [employer] 09-27-2024 10:05-0400 SaO2% (BldA) [Mass fraction] 99 % Louisa Cabello DO Work Phone: [facility] [employer] 09-27-2024 10:05-0400 Systolic blood pressure 145 mm[Hg] Louisa Cabello DO Work Phone: [facility] [employer] 09-26-2024 12:56-0400 Body height 188 cm Maria G RxRevu PA-C Work Phone: [facility] [employer] 09-26-2024 12:56-0400 Body mass index (BMI) [Ratio] 34.54 kg/m2 Maria G RxRevu PA-C Work Phone: [facility] [employer] 09-26-2024 12:56-0400 Body weight 122.02 kg Maria G RxRevu PA-C Work Phone: [facility] [employer] 09-26-2024 12:56-0400 Respiratory rate 14 /min Maria G RxRevu PA-C Work Phone: [facility] [employer] 09-20-2024 16:00-0400 Body mass index (BMI) [Ratio] 34.64 kg/m2 Saba Amadorirk PLANT OPERATOR CONTROL ROOM OPERATOR - FERRYBOAT OPERATOR HELPER Work Phone: [facility] [employer] 09-20-2024 16:00-0400 Body weight 122.38 kg Saba Amadorirdom PLANT OPERATOR CONTROL ROOM OPERATOR - FERRYBOAT OPERATOR HELPER Work Phone: [facility] [employer] 08-03-2024 08:54-0400 Body height 188 cm George Wrihgt MD Work Phone: [facility] [employer] 08-03-2024 08:54-0400 Body mass index (BMI) [Ratio] 34.02 kg/m2 George Wright MD Work Phone: [facility] [employer] 08-03-2024 08:54-0400 Body temperature 97.7 [degF] George Wright MD Work Phone: [facility] [employer] 08-03-2024 08:54-0400 Body weight 120.2 kg George Wright MD Work Phone: [facility] [employer] 08-03-2024 08:54-0400 Diastolic blood pressure 76 mm[Hg] George Wright MD Work Phone: [facility] [employer] 08-03-2024 08:54-0400 Heart rate 72 /min George Wright MD Work Phone: [facility] [employer] 08-03-2024 08:54-0400 Respiratory rate 18 /min George Wright MD Work Phone: [facility] [employer] 08-03-2024 08:54-0400 SaO2% (BldA) [Mass fraction] 97 % George Wright MD Work Phone: [facility] [employer] 08-03-2024 08:54-0400 Systolic blood pressure 135 mm[Hg] George Wright MD Work Phone: [facility] [employer] 07-19-2024 09:42-0400 Diastolic blood pressure 68 mm[Hg] Saba Sam PLANT OPERATOR CONTROL ROOM OPERATOR - FERRYBOAT OPERATOR HELPER Work Phone: [facility] [employer] 07-19-2024 09:42-0400 Heart rate 88 /min Saba Amadorirdom PLANT OPERATOR CONTROL ROOM OPERATOR - FERRYBOAT OPERATOR HELPER Work Phone: [facility] [employer] 07-19-2024 09:42-0400 Systolic blood pressure 94 mm[Hg] Saba Amadorirk PLANT OPERATOR CONTROL ROOM OPERATOR - FERRYBOAT OPERATOR HELPER Work Phone: [facility] [employer] 07-19-2024 09:25-0400 Body height 182.9 cm Saba Amadorirdom PLANT OPERATOR CONTROL ROOM OPERATOR - FERRYBOAT OPERATOR HELPER Work Phone: [facility] [employer] 07-19-2024 09:25-0400 Body mass index (BMI) [Ratio] 34.83 kg/m2 Saba Amadroirdom PLANT OPERATOR CONTROL ROOM OPERATOR - FERRYBOAT OPERATOR HELPER Work Phone: [facility] [employer] 07-19-2024 09:25-0400 Body weight 116.48 kg Saba Amadorirdom PLANT OPERATOR CONTROL ROOM OPERATOR - FERRYBOAT OPERATOR HELPER Work Phone: [facility] [employer] 06-30-2024 07:50-0400 Body temperature 96.91 [degF] Asher Rodriguez DO Work Phone: [facility] [employer] 06-30-2024 07:50-0400 Diastolic blood pressure 73 mm[Hg] Asher Rodriguez DO Work Phone: [facility] [employer] 06-30-2024 07:50-0400 Heart rate 78 /min Asher Rodriguez DO Work Phone: [employer] 06-30-2024 07:50-0400 Respiratory rate 18 /min Asher Rodriguez DO Work Phone: [facility] [employer] 06-30-2024 07:50-0400 SaO2% (BldA) [Mass fraction] 97 % Asher Rodriguez DO [facility] 06-30-2024 07:50-0400 Systolic blood pressure 121 mm[Hg] Asher Rodriguez DO [facility] 06-29-2024 05:00-0400 Body mass index (BMI) [Ratio] 36.07 kg/m2 Asher Rodriguez DO [facility] 06-29-2024 05:00-0400 Body weight 127.42 kg Asher Rodriguez DO Work Phone: [facility] [employer] 06-24-2024 12:19-0400 Body height 188 cm Asher Rodriguez DO [facility] 06-18-2024 18:33-0500 Body temperature 98.1 [degF] Louisa Pozsgay DO Work Phone: [employer] 06-18-2024 18:33-0500 Diastolic blood pressure 82 mm[Hg] Louisa Pozsgay DO Work Phone: [employer] 06-18-2024 18:33-0500 Heart rate 90 /min Louisa Pozsgay DO Work Phone: [employer] 06-18-2024 18:33-0500 Respiratory rate 18 /min Louisa Pozsgay DO Work Phone: [employer] 06-18-2024 18:33-0500 SaO2% (BldA) [Mass fraction] 98 % Louisa Pozsgay DO Work Phone: [employer] 06-18-2024 18:33-0500 Systolic blood pressure 130 mm[Hg] Louisa Pozsgay DO Work Phone: [employer] 05-28-2024 09:05-0500 Diastolic blood pressure 59 mm[Hg] Antony Anderson MD Work Phone: [facility] [employer] 05-28-2024 09:05-0500 Heart rate 87 /min Antony Anderson MD Work Phone: [facility] 05-28-2024 09:05-0500 Systolic blood pressure 120 mm[Hg] Antony Anderson MD Work Phone: [facility] [employer] 05-28-2024 07:18-0500 Body temperature 99.19 [degF] Antony Anderson MD Work Phone: [facility] [employer] 05-28-2024 07:18-0500 Respiratory rate 16 /min Antony Anderson MD Work Phone: [facility] [employer] 05-28-2024 07:18-0500 SaO2% (BldA) [Mass fraction] 94 % Antony Anderson MD Work Phone: [facility] [employer] 05-27-2024 11:24-0500 Body height 188 cm Antony Anderson MD Work Phone: [facility] [employer] 05-27-2024 11:24-0500 Body mass index (BMI) [Ratio] 35.95 kg/m2 Antony Anderson MD Work Phone: [facility] [employer] 05-27-2024 11:24-0500 Body weight 127.01 kg Antony Anderson MD Work Phone: [facility] [employer] 05-13-2024 10:14-0500 Body height 188 cm Naya Vences MD Work Phone: [facility] [employer] 05-13-2024 10:14-0500 Body mass index (BMI) [Ratio] 35.41 kg/m2 Naya Vences MD Work Phone: [facility] [employer] 05-13-2024 10:14-0500 Body weight 125.1 kg Naya Vences MD Work Phone: [facility] [employer] 05-13-2024 10:14-0500 Diastolic blood pressure 82 mm[Hg] Naya Vences MD Work Phone: [facility] [employer] 05-13-2024 10:14-0500 Heart rate 71 /min Naya Vences MD Work Phone: [facility] [employer] 05-13-2024 10:14-0500 SaO2% (BldA) [Mass fraction] 97 % Naya Vences MD Work Phone: [facility] [employer] 05-13-2024 10:14-0500 Systolic blood pressure 124 mm[Hg] Naya Vences MD Work Phone: [facility] [employer] 05-11-2024 11:35-0500 Body height 188 cm Antony Anderson MD Work Phone: [facility] [employer] 05-11-2024 11:35-0500 Body mass index (BMI) [Ratio] 32.23 kg/m2 Antony Anderson MD Work Phone: [facility] [employer] 05-11-2024 11:35-0500 Body weight 113.85 kg Antony Anderson MD Work Phone: [facility] [employer] 05-11-2024 11:35-0500 Diastolic blood pressure 70 mm[Hg] Antony Anderson MD Work Phone: [facility] [employer] 05-11-2024 11:35-0500 Systolic blood pressure 100 mm[Hg] Antony Anderson MD Work Phone: [facility] [employer] 04-29-2024 13:32-0500 Body height 188 cm Juaquin Amos MD Work Phone: [facility] [employer] 04-29-2024 13:32-0500 Body mass index (BMI) [Ratio] 32.23 kg/m2 Juaquin Amos MD Work Phone: [employer] 04-29-2024 13:32-0500 Body weight 113.85 kg Juaquin Amos MD Work Phone: [facility] [employer] 04-29-2024 13:32-0500 Heart rate 2 /min Juaquin Amos MD Work Phone: [facility] [employer] 11-03-2023 11:38-0400 Body mass index (BMI) [Ratio] 35.36 kg/m2 Sherlyn Dunneder PA-C Work Phone: [facility] [employer] 11-03-2023 11:38-0400 Body weight 121.56 kg Sherlyn Dunneder PA-C Work Phone: [facility] [employer] 11-03-2023 11:38-0400 Diastolic blood pressure 80 mm[Hg] Sherlyn Dunneder PA-C Work Phone: [facility] [employer] 11-03-2023 11:38-0400 Heart rate 81 /min Sherlyn Dunneder PA-C Work Phone: [facility] [employer] 11-03-2023 11:38-0400 Systolic blood pressure 146 mm[Hg] Sherlyn Del Rio PA-C Work Phone: [facility] [employer] 10-02-2023 11:37-0400 Diastolic blood pressure 78 mm[Hg] Louisa Marina MD Work Phone: [facility] [employer] 10-02-2023 11:37-0400 Heart rate 102 /min Louisa Marina MD Work Phone: [facility] [employer] 10-02-2023 11:37-0400 Systolic blood pressure 130 mm[Hg] Louisa Marina MD Work Phone: [facility] [employer] 10-02-2023 11:34-0400 SaO2% (BldA) [Mass fraction] 95 % Louisa Marina MD Work Phone: [facility] [employer] 10-02-2023 10:01-0400 Body height 185.4 cm Louisa Marina MD Work Phone: [employer] 10-02-2023 10:01-0400 Body mass index (BMI) [Ratio] 35.36 kg/m2 Louisa Marina MD Work Phone: [employer] 10-02-2023 10:01-0400 Body weight 121.56 kg Louisa Marina MD Work Phone: [facility] [employer] 10-02-2023 07:48-0400 Body temperature 97.5 [degF] Louisa Marina MD Work Phone: [facility] [employer] 10-02-2023 07:48-0400 Respiratory rate 18 /min Louisa Marina MD Work Phone: [facility] [employer] 09-29-2023 10:12-0400 Body height 185.4 cm Sherlyn Del Rio PA-C Work Phone: [facility] [employer] 09-29-2023 10:12-0400 Body mass index (BMI) [Ratio] 32.85 kg/m2 Sherlyn Del Rio PA-C Work Phone: [facility] [employer] 09-29-2023 10:12-0400 Body weight 112.95 kg Sherlyn Del Rio PA-C Work Phone: [facility] [employer] 09-29-2023 10:12-0400 Diastolic blood pressure 75 mm[Hg] Sherlyn Del Rio PA-C Work Phone: [facility] [employer] 09-29-2023 10:12-0400 Heart rate 109 /min Sherlyn Del Rio PA-C Work Phone: [facility] [employer] 09-29-2023 10:12-0400 Systolic blood pressure 114 mm[Hg] Sherlyn Del Rio PA-C Work Phone: [facility] [employer] 09-25-2023 07:39-0400 Body temperature 97 [degF] Beto Gutierrez MD Work Phone: [facility] [employer] 09-25-2023 07:39-0400 Diastolic blood pressure 74 mm[Hg] Beto Gutierrez MD Work Phone: [facility] [employer] 09-25-2023 07:39-0400 Heart rate 62 /min Beto Gutierrez MD Work Phone: [employer] [employer] 09-25-2023 07:39-0400 Respiratory rate 18 /min Beto Gutierrez MD Work Phone: [facility] [employer] 09-25-2023 07:39-0400 SaO2% (BldA) [Mass fraction] 98 % Beto Gutierrez MD Work Phone: [facility] [employer] 09-25-2023 07:39-0400 Systolic blood pressure 134 mm[Hg] Beto Gutierrez MD Work Phone: [facility] [employer] 09-23-2023 07:30-0400 Body height 185.4 cm Beto Gutierrez MD Work Phone: [facility] [employer] 09-23-2023 07:30-0400 Body mass index (BMI) [Ratio] 34.3 kg/m2 Beto Gutierrez MD Work Phone: [facility] [employer] 09-23-2023 07:30-0400 Body weight 117.94 kg Beto Gutierrez MD Work Phone: [facility] [employer] 09-22-2023 09:23-0400 Body height 185.4 cm Beto Gutierrez MD Work Phone: [facility] [employer] 09-22-2023 09:23-0400 Body mass index (BMI) [Ratio] 35.09 kg/m2 Beto Gutierrez MD Work Phone: [facility] [employer] 09-22-2023 09:23-0400 Body weight 120.66 kg Beto Gutierrez MD Work Phone: [facility] [facility] 09-22-2023 09:23-0400 Diastolic blood pressure 53 mm[Hg] Beto Gutierrez MD Work Phone: [facility] [employer] 09-22-2023 09:23-0400 Heart rate 64 /min Beto Gutierrez MD Work Phone: [facility] [employer] 09-22-2023 09:23-0400 Systolic blood pressure 128 mm[Hg] Beto Gutierrez MD Work Phone: [facility] [employer] 09-16-2023 14:30-0400 Diastolic blood pressure 64 mm[Hg] Cristo Coyne MD Work Phone: [facility] [employer] 09-16-2023 14:30-0400 Heart rate 68 /min Cristo Coyne MD Work Phone: [facility] [employer] 09-16-2023 14:30-0400 Respiratory rate 16 /min Cristo Coyne MD Work Phone: [facility] [employer] 09-16-2023 14:30-0400 SaO2% (BldA) [Mass fraction] 96 % Cristo Coyne MD Work Phone: [facility] [employer] 09-16-2023 14:30-0400 Systolic blood pressure 110 mm[Hg] Cristo Coyne MD Work Phone: [facility] [employer] 09-16-2023 13:30-0400 Body temperature 97.81 [degF] Cristo Coyne MD Work Phone: [facility] [employer] 09-08-2023 08:50-0400 Body height 185.4 cm Mariana Chwastowski PLANT OPERATOR CONTROL ROOM OPERATOR - ESCROW MANAGER Work Phone: [facility] [employer] 09-08-2023 08:50-0400 Body mass index (BMI) [Ratio] 34.3 kg/m2 Mariana Chwastowski PLANT OPERATOR CONTROL ROOM OPERATOR - ESCROW MANAGER Work Phone: [facility] [employer] 09-08-2023 08:50-0400 Body weight 117.94 kg Mariana Chwastowski PLANT OPERATOR CONTROL ROOM OPERATOR - ESCROW MANAGER Work Phone: [facility] [employer] 09-08-2023 08:50-0400 Diastolic blood pressure 60 mm[Hg] Mariana Chwastowski PLANT OPERATOR CONTROL ROOM OPERATOR - ESCROW MANAGER Work Phone: [facility] [employer] 09-08-2023 08:50-0400 Heart rate 86 /min Mariana Chwastowski PLANT OPERATOR CONTROL ROOM OPERATOR - ESCROW MANAGER Work Phone: [facility] [employer] 09-08-2023 08:50-0400 Systolic blood pressure 102 mm[Hg] Mariana Chwastowski PLANT OPERATOR CONTROL ROOM OPERATOR - ESCROW MANAGER Work Phone: [facility] [employer] 08-27-2023 11:40-0400 Body height 185.4 cm Mariana Chwastowski PLANT OPERATOR CONTROL ROOM OPERATOR - ESCROW MANAGER Work Phone: [facility] [employer] 08-27-2023 11:40-0400 Body mass index (BMI) [Ratio] 34.3 kg/m2 Mariana Chwastowski PLANT OPERATOR CONTROL ROOM OPERATOR - ESCROW MANAGER Work Phone: [facility] [employer] 08-27-2023 11:40-0400 Body weight 117.94 kg Mariana Chwastowski PLANT OPERATOR CONTROL ROOM OPERATOR - ESCROW MANAGER Work Phone: [facility] [employer] 08-27-2023 11:40-0400 Diastolic blood pressure 68 mm[Hg] Mariana Ball PLANT OPERATOR CONTROL ROOM OPERATOR - ESCROW MANAGER Work Phone: [facility] 08-27-2023 11:40-0400 Heart rate 78 /min Mariana Ball PLANT OPERATOR CONTROL ROOM OPERATOR - ESCROW MANAGER Work Phone: [facility] [employer] 08-27-2023 11:40-0400 Systolic blood pressure 133 mm[Hg] Mariana Ball PLANT OPERATOR CONTROL ROOM OPERATOR - ESCROW MANAGER Work Phone: [facility] [employer] 08-21-2023 23:05-0400 Body temperature 97.7 [degF] Eduard Guan MD Work Phone: [facility] 08-21-2023 22:11-0400 SaO2% (BldA) [Mass fraction] 98 % Eduard Guan MD Work Phone: [facility] [employer] 08-21-2023 21:24-0400 Diastolic blood pressure 81 mm[Hg] Eduard Guan MD Work Phone: [facility] [employer] 08-21-2023 21:24-0400 Heart rate 111 /min Eduard Guan MD Work Phone: [facility] 08-21-2023 21:24-0400 Respiratory rate 15 /min Eduard Guan MD Work Phone: [facility] [employer] 08-21-2023 21:24-0400 Systolic blood pressure 109 mm[Hg] Eduard Guan MD Work Phone: [facility] [employer] 08-21-2023 21:20-0400 Body mass index (BMI) [Ratio] 34.3 kg/m2 Eduard Guan MD Work Phone: [facility] 08-21-2023 21:20-0400 Body weight 117.94 kg Eduard Guan MD Work Phone: [facility] [employer] 08-20-2023 07:20-0400 Body temperature 98.4 [degF] Cornelius Chance MD Work Phone: [facility] 08-20-2023 07:20-0400 Diastolic blood pressure 81 mm[Hg] Cornelius Chance MD Work Phone: [facility] 08-20-2023 07:20-0400 Heart rate 71 /min Cornelius Chance MD Work Phone: [facility] 08-20-2023 07:20-0400 Respiratory rate 18 /min Cornelius Chance MD Work Phone: [facility] 08-20-2023 07:20-0400 SaO2% (BldA) [Mass fraction] 90 % Cornelius Chance MD Work Phone: [facility] 08-20-2023 07:20-0400 Systolic blood pressure 135 mm[Hg] Cornelius Chance MD Work Phone: [facility] 08-18-2023 02:57-0400 Body height 185.4 cm Cornelius Chance MD Work Phone: [facility] [employer] 08-18-2023 02:57-0400 Body mass index (BMI) [Ratio] 34.3 kg/m2 Cornelius Chance MD Work Phone: [facility] 08-18-2023 02:57-0400 Body weight 117.94 kg Cornelius Chance MD Work Phone: [facility] 08-17-2023 21:27-0400 Body height 185.4 cm Delia Zepeda MD Work Phone: [facility] [employer] 08-17-2023 21:27-0400 Body mass index (BMI) [Ratio] 34.3 kg/m2 Delia Zepeda MD Work Phone: [facility] [employer] 08-17-2023 21:27-0400 Body weight 117.94 kg Delia Zepeda MD Work Phone: [facility] [employer] 08-17-2023 21:27-0400 Diastolic blood pressure 78 mm[Hg] Delia Zepeda MD Work Phone: [facility] [employer] 08-17-2023 21:27-0400 Heart rate 75 /min Delia Zepeda MD Work Phone: [facility] [employer] 08-17-2023 21:27-0400 Respiratory rate 16 /min Delia Zepeda MD Work Phone: [facility] [employer] 08-17-2023 21:27-0400 SaO2% (BldA) [Mass fraction] 96 % Delia Zepeda MD Work Phone: [facility] [employer] 08-17-2023 21:27-0400 Systolic blood pressure 120 mm[Hg] Delia Zepeda MD Work Phone: [facility] [employer] 08-17-2023 19:06-0400 Body temperature 97.81 [degF] Delia Zepeda MD Work Phone: [facility] [employer] 08-10-2023 14:42-0400 Body height 181.6 cm Cristo Coyne MD Work Phone: [facility] [employer] 08-10-2023 14:42-0400 Body mass index (BMI) [Ratio] 35.76 kg/m2 Cristo Coyne MD Work Phone: [facility] [employer] 08-10-2023 14:42-0400 Body weight 117.94 kg Cristo Coyne MD Work Phone: [facility] [employer] 08-10-2023 14:42-0400 Diastolic blood pressure 69 mm[Hg] Cristo Coyne MD Work Phone: [facility] [employer] 08-10-2023 14:42-0400 Heart rate 81 /min Cristo Coyne MD Work Phone: [facility] [employer] 08-10-2023 14:42-0400 Systolic blood pressure 101 mm[Hg] Cristo Coyne MD Work Phone: [facility] [employer] 08-10-2023 08:15-0400 Body height 182.2 cm Mattie Lopez MD Work Phone: [facility] [employer] 08-10-2023 08:15-0400 Body mass index (BMI) [Ratio] 36.9 kg/m2 Mattie Lopez MD Work Phone: [facility] [employer] 08-10-2023 08:15-0400 Body weight 122.56 kg Mattie Lopez MD Work Phone: [facility] [employer] 08-03-2023 08:53-0400 Body height 186.7 cm Deb Dongar PLANT OPERATOR CONTROL ROOM OPERATOR - FERRYBOAT OPERATOR HELPER Work Phone: [facility] [employer] 08-03-2023 08:53-0400 Body mass index (BMI) [Ratio] 35.01 kg/m2 Deb Dongar PLANT OPERATOR CONTROL ROOM OPERATOR - FERRYBOAT OPERATOR HELPER Work Phone: [facility] [employer] 08-03-2023 08:53-0400 Body weight 122.02 kg Deb Dongar PLANT OPERATOR CONTROL ROOM OPERATOR - FERRYBOAT OPERATOR HELPER Work Phone: [facility] [employer] 08-03-2023 08:53-0400 Diastolic blood pressure 83 mm[Hg] Deb Dongar PLANT OPERATOR CONTROL ROOM OPERATOR - FERRYBOAT OPERATOR HELPER Work Phone: [facility] [employer] 08-03-2023 08:53-0400 Heart rate 79 /min Deb Dongar PLANT OPERATOR CONTROL ROOM OPERATOR - FERRYBOAT OPERATOR HELPER Work Phone: [facility] [employer] 08-03-2023 08:53-0400 Systolic blood pressure 132 mm[Hg] Deb Dongar PLANT OPERATOR CONTROL ROOM OPERATOR - FERRYBOAT OPERATOR HELPER Work Phone: [facility] [employer] 06-23-2023 09:47-0400 Body height 186.7 cm Beto Gutierrez MD Work Phone: [facility] [employer] 06-23-2023 09:47-0400 Body mass index (BMI) [Ratio] 36.86 kg/m2 Beto Gutierrez MD Work Phone: [facility] [employer] 06-23-2023 09:47-0400 Body weight 128.46 kg Beto Gutierrez MD Work Phone: [facility] [employer] 06-22-2023 12:50-0400 Body height 182.2 cm Deborah Lemus NP Work Phone: [facility] [employer] 06-22-2023 12:50-0400 Body mass index (BMI) [Ratio] 38.87 kg/m2 Deborah Lemus NP Work Phone: [facility] [employer] 06-22-2023 12:50-0400 Body weight 129.09 kg Deborah Jasso PLANT OPERATOR CONTROL ROOM OPERATOR - ESCROW MANAGER Work Phone: [facility] [employer] 06-22-2023 12:50-0400 Diastolic blood pressure 77 mm[Hg] Deborah Jasso PLANT OPERATOR CONTROL ROOM OPERATOR - ESCROW MANAGER Work Phone: [facility] [employer] 06-22-2023 12:50-0400 Heart rate 80 /min Deborah Jasso PLANT OPERATOR CONTROL ROOM OPERATOR - ESCROW MANAGER Work Phone: [facility] [employer] 06-22-2023 12:50-0400 Respiratory rate 16 /min Deborah Jasso PLANT OPERATOR CONTROL ROOM OPERATOR - ESCROW MANAGER Work Phone: [facility] [employer] 06-22-2023 12:50-0400 Systolic blood pressure 119 mm[Hg] Deborah Jasso PLANT OPERATOR CONTROL ROOM OPERATOR - ESCROW MANAGER Work Phone: [facility] [employer] 04-10-2023 16:20-0500 Diastolic blood pressure 70 mm[Hg] Sophie Haines MD Work Phone: [facility] [employer] 04-10-2023 16:20-0500 Heart rate 71 /min Sophie Haines MD Work Phone: [facility] [employer] 04-10-2023 16:20-0500 Respiratory rate 18 /min Sophie Haines MD Work Phone: [facility] [employer] 04-10-2023 16:20-0500 SaO2% (BldA) [Mass fraction] 97 % Sophie Haines MD Work Phone: [facility] [facility] 04-10-2023 16:20-0500 Systolic blood pressure 141 mm[Hg] Sophie Haines MD Work Phone: [facility] [facility] 04-10-2023 10:32-0500 Body temperature 97.9 [degF] Sophie Haines MD Work Phone: [facility] 03-04-2023 18:32-0500 Diastolic blood pressure 81 mm[Hg] Wiliam Caruso DO Work Phone: [facility] [employer] 03-04-2023 18:32-0500 SaO2% (BldA) [Mass fraction] 93 % Wiliam Caruso DO Work Phone: [facility] [employer] 03-04-2023 18:32-0500 Systolic blood pressure 102 mm[Hg] Wiliam Caruso DO Work Phone: [facility] [employer] 03-04-2023 18:05-0500 Heart rate 68 /min Wiliam Caruso DO Work Phone: [facility] [employer] 03-04-2023 18:05-0500 Respiratory rate 16 /min Wiliam Caruso DO Work Phone: [facility] [employer] 03-04-2023 15:51-0500 Body mass index (BMI) [Ratio] 39.58 kg/m2 Wiliam Caruso DO Work Phone: [facility] [employer] 03-04-2023 15:51-0500 Body temperature 98.29 [degF] Wiliam Caruso DO Work Phone: [facility] [employer] 03-04-2023 15:51-0500 Body weight 136.08 kg Wiliam Caruso DO Work Phone: [facility] [employer] 03-03-2023 08:00-0500 Body temperature 97.59 [degF] Sinan Rodriguez MD Work Phone: [facility] [employer] 03-03-2023 08:00-0500 Diastolic blood pressure 78 mm[Hg] Sinan Rodriguez MD Work Phone: [facility] [employer] 03-03-2023 08:00-0500 Heart rate 80 /min Sinan Rodriguez MD Work Phone: [facility] [employer] 03-03-2023 08:00-0500 Respiratory rate 16 /min Sinan Rodriguez MD Work Phone: [facility] [employer] 03-03-2023 08:00-0500 SaO2% (BldA) [Mass fraction] 93 % Sinan Rodriguez MD Work Phone: [facility] [employer] 03-03-2023 08:00-0500 Systolic blood pressure 136 mm[Hg] Sinan Rodriguez MD Work Phone: [facility] [employer] 02-28-2023 04:17-0500 Body height 185.4 cm Sinan Rodriguez MD Work Phone: [facility] [employer] 02-28-2023 04:17-0500 Body mass index (BMI) [Ratio] 38.26 kg/m2 Sinan Rodriguez MD Work Phone: [facility] [employer] 02-28-2023 04:17-0500 Body weight 131.54 kg Sinan Rodriguez MD Work Phone: [facility] [employer] 02-21-2023 15:45-0500 Diastolic blood pressure 69 mm[Hg] Bubba Smith MD Work Phone: [facility] [employer] 02-21-2023 15:45-0500 Heart rate 67 /min Bubba Smith MD Work Phone: [facility] [employer] 02-21-2023 15:45-0500 Respiratory rate 20 /min Bubba Smith MD Work Phone: [facility] [employer] 02-21-2023 15:45-0500 SaO2% (BldA) [Mass fraction] 95 % Bubba Smith MD Work Phone: [facility] [employer] 02-21-2023 15:45-0500 Systolic blood pressure 133 mm[Hg] Bubba Smith MD Work Phone: [facility] [employer] 02-21-2023 10:18-0500 Body temperature 98.71 [degF] Bubba Smith MD Work Phone: [facility] [employer] 02-15-2023 15:44-0500 Diastolic blood pressure 95 mm[Hg] Jenni Ehsan PLANT OPERATOR CONTROL ROOM OPERATOR Work Phone: [facility] [employer] 02-15-2023 15:44-0500 Heart rate 64 /min Jenni Ehsan PLANT OPERATOR CONTROL ROOM OPERATOR Work Phone: [facility] [employer] 02-15-2023 15:44-0500 Respiratory rate 16 /min Jenni Ehsan PLANT OPERATOR CONTROL ROOM OPERATOR Work Phone: [facility] [employer] 02-15-2023 15:44-0500 Systolic blood pressure 117 mm[Hg] Jenni Ehsan PLANT OPERATOR CONTROL ROOM OPERATOR Work Phone: [facility] [employer] 02-15-2023 15:01-0500 SaO2% (BldA) [Mass fraction] 96 % Jenni Moser APRN Work Phone: [facility] [employer] 02-15-2023 11:29-0500 Body height 185.4 cm Jenni Moser APRN Work Phone: [facility] 02-15-2023 11:29-0500 Body mass index (BMI) [Ratio] 36.94 kg/m2 Jenni Moser APRN Work Phone: [facility] 02-15-2023 11:29-0500 Body weight 127.01 kg Jenni Moser APRN Work Phone: [facility] [employer] 02-15-2023 11:21-0500 Body temperature 98.1 [degF] Jenni Moser APRN Work Phone: [facility] 12-01-2022 08:45-0400 Body height 182.2 cm Louisa Pozsgay DO Work Phone: [facility] 12-01-2022 08:45-0400 Body mass index (BMI) [Ratio] 41.35 kg/m2 Louisa Pozsgay DO Work Phone: [facility] 12-01-2022 08:45-0400 Body temperature 97.2 [degF] Louisa Fuenteszsgay DO Work Phone: [facility] 12-01-2022 08:45-0400 Body weight 137.35 kg Louisa Pozsgay DO Work Phone: [facility] 12-01-2022 08:45-0400 Diastolic blood pressure 77 mm[Hg] Louisa Pozsgay DO Work Phone: [facility] 12-01-2022 08:45-0400 Heart rate 74 /min Louisa Pozsgay DO Work Phone: [facility] 12-01-2022 08:45-0400 Respiratory rate 16 /min Louisa Pozsgay DO Work Phone: [facility] 12-01-2022 08:45-0400 Systolic blood pressure 147 mm[Hg] Louisa Cabello DO Work Phone: [facility] [employer] 07-03-2022 19:02-0400 Body temperature 97.5 [degF] Mann Voll DO Work Phone: [facility] 07-03-2022 19:02-0400 Diastolic blood pressure 74 mm[Hg] Mann Voll DO Work Phone: [facility] [employer] 07-03-2022 19:02-0400 Heart rate 68 /min Mann Voll DO Work Phone: [facility] 07-03-2022 19:02-0400 Respiratory rate 18 /min Mann Voll DO Work Phone: [facility] [employer] 07-03-2022 19:02-0400 SaO2% (BldA) [Mass fraction] 94 % Mann Voll DO Work Phone: [facility] [employer] 07-03-2022 19:02-0400 Systolic blood pressure 116 mm[Hg] Mann Voll DO Work Phone: [facility] 06-09-2022 21:32-0500 Body mass index (BMI) [Ratio] 39.73 kg/m2 Fiordaliza Cuellar DO Work Phone: [facility] 06-09-2022 21:32-0500 Body temperature 97.59 [degF] Fiordaliza Araujonett DO Work Phone: [facility] 06-09-2022 21:32-0500 Body weight 133.81 kg Fiordaliza Alisa DO Work Phone: [facility] 06-09-2022 21:32-0500 Diastolic blood pressure 85 mm[Hg] Fiordaliza Alisa DO Work Phone: [facility] 06-09-2022 21:32-0500 Heart rate 77 /min Fiordaliza Alisa DO Work Phone: [facility] 06-09-2022 21:32-0500 Respiratory rate 16 /min Fiordaliza Alisa DO Work Phone: [facility] [employer] 06-09-2022 21:32-0500 SaO2% (BldA) [Mass fraction] 93 % Fiordaliza Cuellar DO Work Phone: [facility] [employer] 06-09-2022 21:32-0500 Systolic blood pressure 130 mm[Hg] Fiordaliza Cuellar DO Work Phone: [facility] [employer] 12-19-2021 08:47-0400 Body temperature 97.9 [degF] Julianne Welch MD Work Phone: [facility] 12-19-2021 08:47-0400 Diastolic blood pressure 90 mm[Hg] Julianne Welch MD Work Phone: [facility] 12-19-2021 08:47-0400 Heart rate 89 /min Julianne Welch MD Work Phone: [facility] 12-19-2021 08:47-0400 Respiratory rate 18 /min Julianne Welch MD Work Phone: [facility] 12-19-2021 08:47-0400 SaO2% (BldA) [Mass fraction] 93 % Julianne Welch MD Work Phone: [facility] 12-19-2021 08:47-0400 Systolic blood pressure 127 mm[Hg] Julianne Welch MD Work Phone: [facility] 12-18-2021 01:33-0400 Body mass index (BMI) [Ratio] 44.05 kg/m2 Julianne Welch MD Work Phone: [facility] 12-18-2021 01:33-0400 Body weight 151.46 kg Julianne Welch MD Work Phone: [facility] 12-17-2021 14:11-0400 Body height 185.4 cm Julianne Welch MD Work Phone: [facility] 12-05-2021 09:27-0400 Body temperature 97.59 [degF] Louisa Cabello DO Work Phone: [facility] 12-05-2021 09:27-0400 Diastolic blood pressure 77 mm[Hg] Louisa UB. Work Phone: [facility] 12-05-2021 09:27-0400 Heart rate 60 /min Louisa UB. Work Phone: [facility] 12-05-2021 09:27-0400 Respiratory rate 18 /min Louisa UB. Work Phone: [facility] 12-05-2021 09:27-0400 SaO2% (BldA) [Mass fraction] 92 % Louisa UB. Work Phone: [facility] 12-05-2021 09:27-0400 Systolic blood pressure 128 mm[Hg] Louisa UB. Work Phone: [facility] 12-03-2021 06:27-0400 Body height 183.5 cm Louisa UB. Work Phone: [facility] 12-03-2021 06:27-0400 Body mass index (BMI) [Ratio] 46.87 kg/m2 Louisa UB. Work Phone: [facility] 12-03-2021 06:27-0400 Body weight 157.85 kg Louisa UB. Work Phone: [facility] 10-21-2021 21:49-0400 Diastolic blood pressure 69 mm[Hg] Bubba Smith MD Work Phone: [facility] 10-21-2021 21:49-0400 Heart rate 82 /min Bubba Smith MD Work Phone: [facility] 10-21-2021 21:49-0400 Respiratory rate 16 /min Bubba Smith MD Work Phone: [facility] 10-21-2021 21:49-0400 SaO2% (BldA) [Mass fraction] 96 % Bubba Smith MD Work Phone: [facility] 10-21-2021 21:49-0400 Systolic blood pressure 135 mm[Hg] Bubba Smith MD Work Phone: [facility] 10-21-2021 17:39-0400 Body temperature 98.01 [degF] Bubba Smith MD Work Phone: [facility] 10-21-2021 17:38-0400 Body mass index (BMI) [Ratio] 44.31 kg/m2 Bubba Smith MD Work Phone: [facility] 10-21-2021 17:38-0400 Body weight 149.23 kg Bubba Smith MD Work Phone: [facility] 10-02-2021 23:07-0400 Body mass index (BMI) [Ratio] 44.31 kg/m2 Julianne Welch MD Work Phone: [facility] 10-02-2021 23:07-0400 Body temperature 98.91 [degF] Julianne Welch MD Work Phone: [facility] 10-02-2021 23:07-0400 Body weight 149.23 kg Jluianne Welch MD Work Phone: [facility] 10-02-2021 23:07-0400 Diastolic blood pressure 84 mm[Hg] Julianne Welch MD Work Phone: [facility] 10-02-2021 23:07-0400 Heart rate 103 /min Julianne Welch MD Work Phone: [facility] 10-02-2021 23:07-0400 Respiratory rate 20 /min Julianne Welch MD Work Phone: [facility] 10-02-2021 23:07-0400 SaO2% (BldA) [Mass fraction] 94 % Julianne Welch MD Work Phone: [facility] 10-02-2021 23:07-0400 Systolic blood pressure 121 mm[Hg] Julianne Welch MD Work Phone: [facility] 06-15-2021 21:07-0500 Diastolic blood pressure 68 mm[Hg] Ramón Marcus MD Work Phone: [facility] 06-15-2021 21:07-0500 Heart rate 76 /min Ramón Marcus MD Work Phone: [facility] 06-15-2021 21:07-0500 SaO2% (BldA) [Mass fraction] 98 % Ramón Marcus MD Work Phone: [facility] 06-15-2021 21:07-0500 Systolic blood pressure 103 mm[Hg] Ramón Marcus MD Work Phone: [facility] 06-15-2021 19:20-0500 Body mass index (BMI) [Ratio] 46.47 kg/m2 Ramón Marcus MD Work Phone: [facility] 06-15-2021 19:20-0500 Body weight 156.49 kg Ramón Marcus MD Work Phone: [facility] 06-15-2021 19:20-0500 Respiratory rate 18 /min Ramón Marcus MD Work Phone: [facility] 06-15-2021 17:44-0500 Body temperature 99.1 [degF] Ramón Marcus MD Work Phone: [facility] 02-11-2021 13:53-0400 Diastolic blood pressure 89 mm[Hg] Brijesh Snell MD Work Phone: [facility] Work Phone: 02-11-2021 13:53-0400 Heart rate 84 /min Brijesh Snell MD Work Phone: [facility] Work Phone: 02-11-2021 13:53-0400 Respiratory rate 16 /min Brijesh Snell MD Work Phone: [facility] Work Phone: 02-11-2021 13:53-0400 SaO2% (BldA) [Mass fraction] 98 % Brijesh Snell MD Work Phone: [facility] Work Phone: 02-11-2021 13:53-0400 Systolic blood pressure 138 mm[Hg] Brijesh Snell MD Work Phone: [facility] Work Phone: 02-11-2021 09:52-0400 Body temperature 98.49 [degF] Brijesh Snell MD Work Phone: [facility] Work Phone: 02-09-2021 06:45-0400 Heart rate 79 /min Brijesh Luong MD Work Phone: [facility] Work Phone: 02-09-2021 06:45-0400 SaO2% (BldA) [Mass fraction] 94 % Brijesh Luong MD Work Phone: [facility] Work Phone: 02-09-2021 01:09-0400 Body height 185.4 cm Brijesh Luong MD Work Phone: [facility] Work Phone: 02-09-2021 01:09-0400 Body mass index (BMI) [Ratio] 48.95 kg/m2 Brijesh Luong MD Work Phone: [facility] Work Phone: 02-09-2021 01:09-0400 Body temperature 98.1 [degF] Brijesh Luong MD Work Phone: [facility] Work Phone: 02-09-2021 01:09-0400 Body weight 168.28 kg Brijesh Luong MD Work Phone: [facility] Work Phone: 02-09-2021 01:09-0400 Diastolic blood pressure 70 mm[Hg] Brijesh Luong MD Work Phone: [facility] Work Phone: 02-09-2021 01:09-0400 Respiratory rate 20 /min Brijesh Luong MD [facility] Work Phone: 02-09-2021 01:09-0400 Systolic blood pressure 113 mm[Hg] Brijesh Luong MD Work Phone: [facility] Work Phone: 01-24-2021 14:10-0400 Diastolic blood pressure 70 mm[Hg] Louisa Pozsgay DO Work Phone: [facility] Work Phone: 01-24-2021 14:10-0400 Heart rate 94 /min Louisa Pozsgay DO Work Phone: [facility] Work Phone: 01-24-2021 14:10-0400 Respiratory rate 18 /min Louisa Pozsgay DO Work Phone: [facility] Work Phone: 01-24-2021 14:10-0400 SaO2% (BldA) [Mass fraction] 97 % Louisa Pozsgay DO Work Phone: [facility] Work Phone: 01-24-2021 14:10-0400 Systolic blood pressure 119 mm[Hg] Louisa Pozsgay DO Work Phone: [facility] Work Phone: 01-24-2021 12:25-0400 Body height 185.4 cm Louisa Pozsgay DO Work Phone: [facility] Work Phone: 01-24-2021 12:25-0400 Body mass index (BMI) [Ratio] 48.16 kg/m2 Louisa Pozsgay DO Work Phone: [facility] Work Phone: 01-24-2021 12:25-0400 Body temperature 98.8 [degF] Louisa Pozsgay DO Work Phone: [facility] Work Phone: 01-24-2021 12:25-0400 Body weight 165.56 kg Louisa Pozsgay DO Work Phone: [facility] Work Phone: 01-07-2021 02:34-0400 Body mass index (BMI) [Ratio] 49.16 kg/m2 Bubba Smith MD Work Phone: [facility] Work Phone: 01-07-2021 02:34-0400 Body temperature 98.01 [degF] Bubba Smith MD Work Phone: [facility] Work Phone: 01-07-2021 02:34-0400 Body weight 165.56 kg Bubba Smith MD Work Phone: [facility] Work Phone: 01-07-2021 02:34-0400 Diastolic blood pressure 80 mm[Hg] Bubba Smith MD Work Phone: [facility] Work Phone: 01-07-2021 02:34-0400 Heart rate 104 /min Bubba Smith MD Work Phone: [facility] Work Phone: 01-07-2021 02:34-0400 Respiratory rate 20 /min Bubba Smith MD Work Phone: [facility] Work Phone: 01-07-2021 02:34-0400 SaO2% (BldA) [Mass fraction] 97 % Bubba Smith MD Work Phone: [facility] Work Phone: 01-07-2021 02:34-0400 Systolic blood pressure 149 mm[Hg] Bubba Smith MD Work Phone: [facility] Work Phone: 11-19-2020 14:15-0400 Diastolic blood pressure 94 mm[Hg] Andrzej Whittaker MD Work Phone: [facility] Work Phone: 11-19-2020 14:15-0400 Heart rate 83 /min Andrzej Whittaker MD Work Phone: [facility] Work Phone: 11-19-2020 14:15-0400 Respiratory rate 16 /min Andrzej Whittaker MD Work Phone: [facility] Work Phone: 11-19-2020 14:15-0400 SaO2% (BldA) [Mass fraction] 94 % Andrzej Whittaker MD Work Phone: [facility] Work Phone: 11-19-2020 14:15-0400 Systolic blood pressure 140 mm[Hg] Andrzej Whittaker MD Work Phone: [facility] Work Phone: 11-19-2020 13:54-0400 Body temperature 98.2 [degF] Andrzej Whittaker MD Work Phone: [facility] Work Phone: 11-19-2020 11:21-0400 Body height 185.4 cm Andrzej Whittaker MD Work Phone: [facility] Work Phone: 11-19-2020 11:21-0400 Body mass index (BMI) [Ratio] 50.93 kg/m2 Andrzej Whittaker MD Work Phone: [facility] Work Phone: 11-19-2020 11:21-0400 Body weight 175.09 kg Andrzej Whittaker MD Work Phone: [facility] Work Phone: 11-13-2020 12:44-0400 Body height 185.4 cm Andrzej Whittaker MD Work Phone: [facility] Work Phone: 11-13-2020 12:44-0400 Body mass index (BMI) [Ratio] 50.86 kg/m2 Andrzej Whittaker MD Work Phone: [facility] Work Phone: 11-13-2020 12:44-0400 Body temperature 97.59 [degF] Andrzej Whittaker MD Work Phone: [facility] Work Phone: 11-13-2020 12:44-0400 Body weight 174.86 kg Andrzej Whittaker MD Work Phone: [facility] Work Phone: 11-13-2020 12:44-0400 Diastolic blood pressure 86 mm[Hg] Andrzej Whittaker MD Work Phone: [facility] Work Phone: 11-13-2020 12:44-0400 Heart rate 94 /min Andrzej Whittaker MD Work Phone: [facility] Work Phone: 11-13-2020 12:44-0400 Respiratory rate 22 /min Andrzej Whittaker MD Work Phone: [facility] Work Phone: 11-13-2020 12:44-0400 SaO2% (BldA) [Mass fraction] 95 % Andrzej Whittaker MD Work Phone: [facility] Work Phone: 11-13-2020 12:44-0400 Systolic blood pressure 145 mm[Hg] Andrzej Whittaker MD Work Phone: [facility] Work Phone: 11-08-2020 08:00-0400 Heart rate 94 /min Savanah Gomez MD Work Phone: [facility] Work Phone: 11-08-2020 08:00-0400 Respiratory rate 18 /min Savanah Gomez MD Work Phone: [facility] Work Phone: 11-08-2020 08:00-0400 SaO2% (BldA) [Mass fraction] 96 % Savanah Gomez MD Work Phone: [facility] Work Phone: 11-01-2020 10:24-0400 Diastolic blood pressure 69 mm[Hg] Chante Juarez MD Work Phone: [facility] Work Phone: 11-01-2020 10:24-0400 Heart rate 81 /min Chante Juarez MD Work Phone: [facility] Work Phone: 11-01-2020 10:24-0400 SaO2% (BldA) [Mass fraction] 90 % Chante Juarez MD Work Phone: [facility] Work Phone: 11-01-2020 10:24-0400 Systolic blood pressure 110 mm[Hg] Chante Juarez MD Work Phone: [facility] Work Phone: 11-01-2020 04:49-0400 Body height 185.4 cm Chante Juarez MD Work Phone: [facility] Work Phone: 11-01-2020 04:49-0400 Body mass index (BMI) [Ratio] 50 kg/m2 Chante Juarez MD Work Phone: [facility] Work Phone: 11-01-2020 04:49-0400 Body temperature 98.01 [degF] Chante Juarez MD Work Phone: [facility] Work Phone: 11-01-2020 04:49-0400 Body weight 171.91 kg Chante Juarez MD Work Phone: [facility] Work Phone: 11-01-2020 04:49-0400 Respiratory rate 20 /min Chante Juarez MD Work Phone: [facility] Work Phone: 10-31-2020 19:32-0400 Diastolic blood pressure 86 mm[Hg] Benjamín Blue MD Work Phone: [facility] Work Phone: 10-31-2020 19:32-0400 Heart rate 90 /min Benjamín Blue MD Work Phone: [facility] Work Phone: 10-31-2020 19:32-0400 SaO2% (BldA) [Mass fraction] 98 % Benjamín Blue MD Work Phone: [facility] Work Phone: 10-31-2020 19:32-0400 Systolic blood pressure 131 mm[Hg] Benjamín Blue MD Work Phone: [facility] Work Phone: 10-31-2020 14:54-0400 Body mass index (BMI) [Ratio] 51.4 kg/m2 Benjamín Blue MD Work Phone: [facility] Work Phone: 10-31-2020 14:54-0400 Body temperature 98.4 [degF] Benjamín Blue MD Work Phone: [facility] Work Phone: 10-31-2020 14:54-0400 Body weight 171.91 kg Benjamín Blue MD Work Phone: [facility] Work Phone: 10-31-2020 14:54-0400 Respiratory rate 18 /min Benjamín Blue MD Work Phone: [facility] Work Phone: 10-30-2020 20:21-0400 Diastolic blood pressure 93 mm[Hg] Chante Gaytan MD Work Phone: [facility] Work Phone: 10-30-2020 20:21-0400 Heart rate 102 /min Chante Gaytan MD Work Phone: [facility] Work Phone: 10-30-2020 20:21-0400 Respiratory rate 18 /min Chante Gaytan MD Work Phone: [facility] Work Phone: 10-30-2020 20:21-0400 SaO2% (BldA) [Mass fraction] 100 % Chante Gaytan MD Work Phone: [facility] Work Phone: 10-30-2020 20:21-0400 Systolic blood pressure 157 mm[Hg] Chante Gaytan MD Work Phone: [facility] Work Phone: 10-30-2020 16:46-0400 Body temperature 96.69 [degF] Chante Gaytan MD Work Phone: [facility] Work Phone: 10-30-2020 16:28-0400 Body height 182.9 cm Chante Gaytan MD Work Phone: [facility] Work Phone: 10-30-2020 16:28-0400 Body mass index (BMI) [Ratio] 49.5 kg/m2 Chante Gaytan MD Work Phone: [facility] Work Phone: 10-30-2020 16:28-0400 Body weight 165.56 kg Chante Gaytan MD Work Phone: [facility] Work Phone: 10-26-2020 12:30-0400 Diastolic blood pressure 69 mm[Hg] Andrzej Whittaker MD Work Phone: [facility] Work Phone: 10-26-2020 12:30-0400 Heart rate 91 /min Andrzej Whittaker MD Work Phone: [facility] Work Phone: 10-26-2020 12:30-0400 Respiratory rate 13 /min Andrzej Whittaker MD Work Phone: [facility] Work Phone: 10-26-2020 12:30-0400 SaO2% (BldA) [Mass fraction] 100 % Andrzej Whittaker MD Work Phone: [facility] Work Phone: 10-26-2020 12:30-0400 Systolic blood pressure 127 mm[Hg] Andrzej Whittaker MD Work Phone: [facility] Work Phone: 10-26-2020 11:50-0400 Body temperature 97.2 [degF] Andrzej Whittaker MD Work Phone: [facility] Work Phone: 10-26-2020 11:00-0400 Body height 185.4 cm Andrzej Whittaker MD Work Phone: [facility] Work Phone: 10-26-2020 11:00-0400 Body mass index (BMI) [Ratio] 48.68 kg/m2 Andrzej Whittaker MD Work Phone: [facility] Work Phone: 10-26-2020 11:00-0400 Body weight 167.38 kg Andrzej Whittaker MD Work Phone: [facility] Work Phone: 10-19-2020 10:44-0400 Body temperature 97.5 [degF] Andrzej Whittaker MD Work Phone: [facility] Work Phone: 10-19-2020 10:44-0400 Diastolic blood pressure 75 mm[Hg] Andrzej Whittaker MD Work Phone: [facility] Work Phone: 10-19-2020 10:44-0400 Heart rate 94 /min Andrzej Whittaker MD Work Phone: [facility] Work Phone: 10-19-2020 10:44-0400 Respiratory rate 16 /min Andrzej Whittaker MD Work Phone: [facility] Work Phone: 10-19-2020 10:44-0400 SaO2% (BldA) [Mass fraction] 97 % Andrzej Whittaker MD Work Phone: [facility] Work Phone: 10-19-2020 10:44-0400 Systolic blood pressure 129 mm[Hg] Andrzej Whittaker MD Work Phone: [facility] Work Phone: 10-19-2020 10:30-0400 Body height 185.4 cm Andrzej Whittaker MD Work Phone: [facility] Work Phone: 10-19-2020 10:30-0400 Body mass index (BMI) [Ratio] 48.68 kg/m2 Andrzej Whittaker MD Work Phone: [facility] Work Phone: 10-19-2020 10:30-0400 Body weight 167.38 kg Andrzej Whittaker MD Work Phone: [facility] Work Phone: 10-04-2020 17:15-0400 Diastolic blood pressure 88 mm[Hg] Eddie Casi DO Work Phone: [facility] Work Phone: 10-04-2020 17:15-0400 Heart rate 79 /min Eddie Casi DO Work Phone: [facility] Work Phone: 10-04-2020 17:15-0400 Respiratory rate 18 /min Eddie Casi DO Work Phone: [facility] Work Phone: 10-04-2020 17:15-0400 SaO2% (BldA) [Mass fraction] 96 % Eddie Casi DO Work Phone: [facility] Work Phone: 10-04-2020 17:15-0400 Systolic blood pressure 117 mm[Hg] Eddie Casi DO Work Phone: [facility] Work Phone: 10-04-2020 13:41-0400 Body temperature 99 [degF] Eddie Casi DO Work Phone: [facility] Work Phone: 10-01-2020 15:30-0400 Body temperature 96.8 [degF] Julianne Welch MD Work Phone: [facility] Work Phone: 10-01-2020 15:30-0400 Diastolic blood pressure 68 mm[Hg] Julianne Welch MD Work Phone: [facility] Work Phone: 10-01-2020 15:30-0400 Heart rate 85 /min Julianne Welch MD Work Phone: [facility] Work Phone: 10-01-2020 15:30-0400 Respiratory rate 18 /min Julianne Welch MD Work Phone: [facility] Work Phone: 10-01-2020 15:30-0400 SaO2% (BldA) [Mass fraction] 92 % Julianne Welch MD Work Phone: [facility] Work Phone: 10-01-2020 15:30-0400 Systolic blood pressure 112 mm[Hg] Julianne Welch MD Work Phone: [facility] Work Phone: 10-01-2020 06:46-0400 Body mass index (BMI) [Ratio] 47.79 kg/m2 Julianne Welch MD Work Phone: [facility] Work Phone: 10-01-2020 06:46-0400 Body weight 164.29 kg Julianne Welch MD Work Phone: [facility] Work Phone: 09-29-2020 02:27-0400 Body height 185.4 cm Julianne Welch MD Work Phone: [facility] Work Phone: 09-13-2020 07:16-0400 Body temperature 97.3 [degF] Juany Harper DO Work Phone: [facility] Work Phone: 09-13-2020 07:16-0400 Diastolic blood pressure 81 mm[Hg] Juany Harper DO Work Phone: [facility] Work Phone: 09-13-2020 07:16-0400 Heart rate 76 /min Juany Harper DO Work Phone: [facility] Work Phone: 09-13-2020 07:16-0400 Respiratory rate 18 /min Juany Harper DO Work Phone: [facility] Work Phone: 09-13-2020 07:16-0400 SaO2% (BldA) [Mass fraction] 93 % Juany Harper DO Work Phone: [facility] Work Phone: 09-13-2020 07:16-0400 Systolic blood pressure 110 mm[Hg] Juany Harper DO Work Phone: [facility] Work Phone: 09-13-2020 02:34-0400 Body mass index (BMI) [Ratio] 49.29 kg/m2 Juany Harper DO Work Phone: [facility] Work Phone: 09-13-2020 02:34-0400 Body weight 169.46 kg Juany Harper DO Work Phone: [facility] Work Phone: 09-11-2020 19:52-0400 Body height 185.4 cm Juany Harper DO Work Phone: [facility] Work Phone: 08-26-2020 07:13-0400 Body temperature 96.3 [degF] Naima Rodriguez MD Work Phone: [facility] Work Phone: 08-26-2020 07:13-0400 Diastolic blood pressure 76 mm[Hg] Naima Rodriguez MD Work Phone: [facility] Work Phone: 08-26-2020 07:13-0400 Heart rate 68 /min Naima Rodriguez MD Work Phone: [facility] Work Phone: 08-26-2020 07:13-0400 Respiratory rate 18 /min Naima Rodriguez MD Work Phone: [facility] Work Phone: 08-26-2020 07:13-0400 SaO2% (BldA) [Mass fraction] 96 % Naima Rodriguez MD Work Phone: [facility] Work Phone: 08-26-2020 07:13-0400 Systolic blood pressure 132 mm[Hg] Naima Rodriguez MD Work Phone: [facility] Work Phone: 08-26-2020 05:30-0400 Body mass index (BMI) [Ratio] 47.71 kg/m2 Naima Rodriguez MD Work Phone: [facility] Work Phone: 08-26-2020 05:30-0400 Body weight 164.02 kg Naima Rodriguez MD Work Phone: [facility] Work Phone: 08-19-2020 13:04-0400 Diastolic blood pressure 116 mm[Hg] Quintin Pérez MD Work Phone: [facility] Work Phone: Comment on above: RL 08-19-2020 13:04-0400 Systolic blood pressure 164 mm[Hg] Quintin Pérez MD Work Phone: [facility] Work Phone: Comment on above: RL 08-19-2020 13:03-0400 Heart rate 78 /min Quintin Pérez MD Work Phone: [facility] Work Phone: 08-19-2020 13:03-0400 Respiratory rate 16 /min Quintin Pérez MD Work Phone: [facility] Work Phone: 08-19-2020 13:03-0400 SaO2% (BldA) [Mass fraction] 99 % Quintin Pérez MD Work Phone: [facility] Work Phone: 08-19-2020 11:53-0400 Body height 185.4 cm Quintin Pérez MD Work Phone: [facility] Work Phone: 08-19-2020 11:53-0400 Body mass index (BMI) [Ratio] 48.16 kg/m2 Quintin Pérez MD Work Phone: [facility] Work Phone: 08-19-2020 11:53-0400 Body temperature 97.5 [degF] Quintin Pérez MD Work Phone: [facility] Work Phone: 08-19-2020 11:53-0400 Body weight 165.56 kg Quintin Pérez MD Work Phone: [facility] Work Phone: 08-14-2020 12:37-0400 Body mass index (BMI) [Ratio] 49.61 kg/m2 Andrzej Whittaker MD Work Phone: [facility] Work Phone: 08-14-2020 12:37-0400 Body temperature 97.7 [degF] Andrzej Whittaker MD Work Phone: [facility] Work Phone: 08-14-2020 12:37-0400 Body weight 170.55 kg Andrzej Whittaker MD Work Phone: [facility] Work Phone: 08-14-2020 12:37-0400 Diastolic blood pressure 98 mm[Hg] Andrzej Whittaker MD Work Phone: [facility] Work Phone: 08-14-2020 12:37-0400 Heart rate 96 /min Andrzej Whittaker MD Work Phone: [facility] Work Phone: 08-14-2020 12:37-0400 Respiratory rate 16 /min Andrzej Whittaker MD Work Phone: [facility] Work Phone: 08-14-2020 12:37-0400 SaO2% (BldA) [Mass fraction] 94 % Andrzej Whittaker MD Work Phone: [facility] Work Phone: 08-14-2020 12:37-0400 Systolic blood pressure 152 mm[Hg] Andrzej Whittaker MD Work Phone: [facility] Work Phone: 08-03-2020 02:45-0400 Body temperature 98.8 [degF] Eddie Casi DO Work Phone: [facility] Work Phone: 08-03-2020 02:45-0400 Diastolic blood pressure 84 mm[Hg] Eddie Casi DO Work Phone: [facility] Work Phone: 08-03-2020 02:45-0400 Heart rate 88 /min Eddie Casi DO Work Phone: [facility] Work Phone: 08-03-2020 02:45-0400 Respiratory rate 18 /min Eddie Casi DO Work Phone: [facility] Work Phone: 08-03-2020 02:45-0400 SaO2% (BldA) [Mass fraction] 99 % Eddie Casi DO Work Phone: [facility] Work Phone: 08-03-2020 02:45-0400 Systolic blood pressure 142 mm[Hg] Eddie Casi DO Work Phone: [facility] Work Phone: 08-03-2020 01:05-0400 Body height 185.4 cm Eddie Casi DO Work Phone: [facility] Work Phone: 08-03-2020 01:05-0400 Body mass index (BMI) [Ratio] 48.16 kg/m2 Eddie Casi DO Work Phone: [facility] Work Phone: 08-03-2020 01:05-0400 Body weight 165.56 kg Eddie Casi DO Work Phone: [facility] Work Phone: 07-25-2020 16:14-0400 Body Temperature 97 [degF] Louisa WASHINGTON Work Phone: 07-25-2020 16:14-0400 BP Diastolic 109 mm[Hg] Louisa WASHINGTON Work Phone: 07-25-2020 16:14-0400 BP Systolic 173 mm[Hg] Louisa WASHINGTON Work Phone: 07-25-2020 16:14-0400 Pulse (Heart Rate) 104 /min Louisa WASHINGTON Work Phone: 07-25-2020 16:14-0400 Pulse Oximetry 95 % Louisa WASHINGTON Work Phone: 07-25-2020 16:14-0400 Respiratory Rate 19 /min Louisa WASHINGTON Work Phone: 07-23-2020 21:30-0400 Height 185.4 cm Louisa WASHINGTON Work Phone: 07-23-2020 11:59-0400 BMI (Body Mass Index) 49.49 kg/m2 Louisa WASHINGTON Work Phone: 07-23-2020 11:59-0400 Body weight 170.1 kg Louisa WASHINGTON Work Phone: 06-11-2020 11:20-0500 Body Temperature 98.8 [degF] Nahun CARVAJALA Work Phone: 06-11-2020 11:20-0500 BP Diastolic 83 mm[Hg] Nahun CARVAJALA Work Phone: 06-11-2020 11:20-0500 BP Systolic 121 mm[Hg] Nahun CARVAJALA Work Phone: 06-11-2020 11:20-0500 Pulse (Heart Rate) 71 /min Nahun CARVAJALA Work Phone: 06-11-2020 11:20-0500 Pulse Oximetry 95 % Nahun CARVAJALA Work Phone: 06-11-2020 11:20-0500 Respiratory Rate 16 /min Nahun WASHINGTON Work Phone: 06-08-2020 13:39-0500 BMI (Body Mass Index) 46.84 kg/m2 Nahun WASHINGTON Work Phone: 06-08-2020 13:39-0500 Body weight 161.03 kg Nahun WASHINGTON Work Phone: 06-08-2020 13:39-0500 Height 185.4 cm Nahun WASHINGTON Work Phone: 06-06-2020 07:51-0500 BP Diastolic 65 mm[Hg] Naima WASHINGTON Work Phone: 06-06-2020 07:51-0500 BP Systolic 127 mm[Hg] Naima WASHINGTON Work Phone: 06-06-2020 07:51-0500 Pulse (Heart Rate) 84 /min Naima WASHINGTON Work Phone: 06-06-2020 07:51-0500 Pulse Oximetry 95 % Naima WASHINGTON Work Phone: 06-05-2020 21:45-0500 Body Temperature 99.7 [degF] Naima WASHINGTON Work Phone: 06-05-2020 20:03-0500 Respiratory Rate 18 /min Naima WASHINGTON Work Phone: 05-01-2020 09:01-0500 Body Temperature 97 [degF] Louisa Jimenezowell [employer] [facility] [place] 05-01-2020 09:01-0500 BP Diastolic 86 mm[Hg] [facility] [place] 05-01-2020 09:01-0500 BP Systolic 143 mm[Hg] [facility] [place] 05-01-2020 09:01-0500 Pulse (Heart Rate) 81 /min [facility] [place] 05-01-2020 09:01-0500 Pulse Oximetry 93 % [facility] [place] 05-01-2020 09:01-0500 Respiratory Rate 18 /min Louisa [facility], [place] 04-29-2020 15:48-0500 BMI (Body Mass Index) 45.52 kg/m2 [facility] [place] 04-29-2020 15:48-0500 Body weight 156.49 kg [facility] [place] 04-29-2020 15:48-0500 Height 185.4 cm [facility] [place] 04-21-2020 03:06-0500 BP Diastolic 74 mm[Hg] [facility] [place] 04-21-2020 03:06-0500 BP Systolic 135 mm[Hg] [facility], [place] 04-21-2020 03:06-0500 Pulse (Heart Rate) 95 /min [facility], [place] 04-21-2020 03:06-0500 Pulse Oximetry 95 % [facility] [place] 04-20-2020 23:29-0500 Respiratory Rate 22 /min [facility] [place] 04-20-2020 23:29-0500 Body Temperature 97.3 [degF] [facility] [place] 04-20-2020 23:23-0500 BMI (Body Mass Index) 33.64 kg/m2 [facility] [place] 04-20-2020 23:23-0500 Body weight 115.67 kg [facility] [place] 04-20-2020 23:23-0500 Height 185.4 cm [facility] [place] 03-30-2020 14:02-0500 BP Diastolic 84 mm[Hg] Yadiel [facility], [place] 03-30-2020 14:02-0500 BP Systolic 148 mm[Hg] Yadiel [facility], [place] 03-30-2020 14:02-0500 Pulse (Heart Rate) 87 /min [facility], [place] 03-30-2020 14:02-0500 Pulse Oximetry 97 % Yadiel Wheeler [facility], [place] 03-30-2020 09:03-0500 BMI (Body Mass Index) 45.92 kg/m2 Yadiel Wheeler [facility], [place] 03-30-2020 09:03-0500 Body Temperature 97.9 [degF] [facility]adiel [facility] 03-30-2020 09:03-0500 Body weight 145.[address] [facility] 03-30-2020 09:03-0500 Height 177.[address] [facility] 03-30-2020 09:03-0500 Respiratory Rate 20 /min Yadiel Cavanaugh [facility], [place] Encounters Encounter Date Encounter Type Care Provider Facility Start: 02-15-2025 End: 02-15-2025 Emergency department patient visit Joel Rodrigues DO Work Phone: [facility] Comment on above: Chronic right hip pa in (Primary Dx) Start: 02-08-2025 End: 02-08-2025 Office outpatient visit 15 minutes Antony Anderson MD Work Phone: [facility] [place] Comment on above: S/P total right hip arthroplasty (Primary Dx); Primary osteoarthritis of right hip; Trochanteric bursitis of right hip; Low back pain, unspecified back pain laterality, unspecified chronicity, unspecified whether sciatica present Start: 02-08-2025 End: 02-08-2025 Subsequent hospital visit by physician Maria G Jarvis PA-C Work Phone: [facility] Comment on above: S/P total right hip arthroplasty; Primary osteoarthritis of right hip Start: 02-08-2025 End: 02-08-[address] [facility] Start: 02-01-2025 End: 02-01-2025 Office outpatient visit 25 minutes Elba Rojas DO Work Phone: [facility] Comment on above: Chronic prescription opiate use (Primary Dx); Encounter for therapeutic drug monitoring; Chronic bilateral low back pain, unspecified whether sciatica present Start: 02-01-2025 End: 02-01-[address] [facility] Start: 01-31-2025 End: 01-31-2025 Emergency department patient visit [facility] Start: 01-30-2025 End: 02-14-2025 ambulatory Teresa Ruelas RN [facility] Clinical Communication Start: 01-30-2025 End: 02-14-2025 Patient encounter procedure Teresa Ruelas RN [facility] Clinical Communication Start: 01-27-2025 End: 02-12-2025 Telephone encounter Elba Rojas DO Work Phone: [facility] Comment on above: Med Management Start: 01-26-2025 End: 01-26-2025 Office outpatient visit 25 minutes Elba Rojas DO Work Phone: [facility] Comment on above: Lateral pain of righ t hip (Primary Dx); Status post total replacement of right hip; Chronic prescription opiate use; Lumbar radiculopathy Start: 01-26-2025 End: 01-26-[address] [facility] Start: 01-12-2025 End: 01-16-2025 Telephone encounter Saba Lemus CNP Work Phone: [facility] [facility] [place] Comment on above: Appointment Request Start: 12-08-2024 End: 12-08-2024 Patient encounter procedure Nahun Salazar DO Work Phone: [facility] [place] [facility] Comment on above: Right hip pain (Prim roopa Dx); S/P total right hip arthroplasty Start: 12-08-2024 End: 12-08-[address] [facility] Start: 12-08-2024 End: 02-07-2025 Follow-up encounter Eagle Barrett MA [facility] Comment on above: MR hip right wo Start: 12-07-2024 End: 12-07-2024 Subsequent hospital visit by physician Elba Rojas DO Work Phone: [facility] Comment on above: Chronic prescription opiate use; Right hip pain Start: 12-07-2024 End: 12-07-2024 ambulatory [facility]ILIAM FERNANDEZ [facility] Start: 11-23-2024 End: 12-14-2024 Telephone encounter Elba Rojas DO Work Phone: [facility] Comment on above: Discussion Of Care Start: 11-23-2024 End: 11-23-2024 Office outpatient new 45 minutes Elba Rojas DO Work Phone: [facility] Comment on above: Right hip pain (Prim roopa Dx); Chronic prescription opiate use; Chronic hip pain after total replacement of right hip joint Start: 11-23-2024 End: 11-23-2024 ambulatory WILIAM FERNANDEZ [facility] Start: 10-25-2024 End: 10-25-2024 Telephone encounter Maria G Jarvis PA-C Work Phone: [facility] Start: 10-07-2024 End: 10-18-2024 Telephone encounter Akanksha Blanc PsyD Work Phone: [facility] Clinical Communication Comment on above: Appointment Confirma tion (Had referral 09/26/24 Mild dementia with other behavioral disturbance, unspecified dementia type (HCC) ([id number]) Start: 09-28-2024 End: 11-28-2024 Follow-up encounter Antony Anderson MD Work Phone: [facility] [employer] [place] Comment on above: C-reactive protein, Sedimentation rate, automated Start: 09-27-2024 End: 2024 ambulatory [facility]i Hoffman [facility] Start: 09-27-2024 End: 2024 Patient encounter procedure Angi [place] Clinical Communication Start: 09-27-2024 End: 09-27-2024 Emergency department patient visit WILIAM FERNANDEZ [facility] ED Comment on above: Chronic hip pain aft er total replacement of right hip joint (Primary Dx) Start: 09-26-2024 End: 09-26-2024 Office outpatient visit 15 minutes Maria G Jarvis PA-C Work Phone: [facility] Mariah Fernández Comment on above: S/P total right hip arthroplasty (Primary Dx); Primary osteoarthritis of right hip; Right hip pain; Iliopsoas bursitis of right hip Start: 09-26-2024 End: 09-26-2024 Postop follow up visit related to original px Maria G Jarvis PA-C Work Phone: [facility] Mariah Fernández Comment on above: S/P total right hip arthroplasty (Primary Dx); Primary osteoarthritis of right hip; Right hip pain; Iliopsoas bursitis of right hip Start: 09-26-2024 End: 09-26-[address] [facility] Start: 09-21-2024 End: 09-22-2024 Darci Lopez MD Work Phone: [facility] [place] Comment on above: Gastroesophageal ref lux disease without esophagitis; Generalized abdominal pain Start: 09-20-2024 End: 09-20-2024 Office outpatient visit 40 minutes Saba Sam APRN - NASRIN Work Phone: [facility] [place] Comment on above: Mild dementia with o ther behavioral disturbance, unspecified dementia type (HCC) (Primary Dx); Bilateral hearing loss, unspecified hearing loss type Start: 09-20-2024 End: 09-20-[address] [facility] Start: 09-19-2024 End: 09-19-[address] [facility] Start: 09-12-2024 End: 09-12-2024 ambulatory Pooja Swenson RN [facility] Clinical Communication Start: 09-12-2024 End: 09-12-2024 Patient encounter procedure Pooja Swenson RN [facility] Clinical Communication Start: 09-09-2024 End: 09-09-2024 Telephone encounter Antony Anderson MD Work Phone: [facility] Loni Fernández Comment on above: Post-op Problem (RTH A 05/27/24) Start: 08-24-2024 End: 10-24-2024 Follow-up encounter Saba Sam APRN - FERRYBOAT OPERATOR HELPER Work Phone: [facility] [place] Comment on above: Vitamin B12, Folate, Vitamin D Deficiency Screening (Vit D 25) Start: 08-23-2024 End: 09-22-2024 Telephone encounter Saba Sam APRN - FERRYBOAT OPERATOR HELPER Work Phone: [facility] [place] Comment on above: Appointment Start: 08-23-2024 End: 08-23-2024 Subsequent hospital visit by physician Wiliam Fenrandez MD Work Phone: [facility] MR Imaging Comment on above: Lumbago with sciatic a, right side Start: 08-23-2024 End: 08-23-[address] [facility] Start: 08-03-2024 End: 08-03-2024 Emergency department patient visit George Wright MD Work Phone: [facility] ED Comment on above: Acute exacerbation o f chronic low back pain (Primary Dx) Start: 08-03-2024 End: 08-03-2024 Subsequent hospital visit by physician Saba Sam APRN - FERRYBOAT OPERATOR HELPER Work Phone: [facility] CT Comment on above: Memory loss Start: 08-03-2024 End: 08-03-[address] [facility] Start: 08-02-2024 End: 11-01-2024 Transcribe Orders Wiliam Fernandez MD Work Phone: [facility] Central Scheduling Comment on above: Lumbago with sciatic a, right side (Primary Dx) Start: 07-27-2024 End: 07-27-2024 Telephone encounter Luz Maria Mcmillan APRN - FERRYBOAT OPERATOR HELPER Work Phone: [facility] Clinical Communication Comment on above: Advice Only Start: 07-27-2024 End: 07-27-2024 Postop follow up visit related to original px Maria G Jarvis PA-C Work Phone: [facility] [place] Comment on above: S/P total right hip arthroplasty (Primary Dx); Primary osteoarthritis of right hip; Trochanteric bursitis of right hip Start: 07-27-2024 End: 07-27-2024 Subsequent hospital visit by physician Maria G Jarvis PA-C Work Phone: [facility] Comment on above: S/P total right hip arthroplasty Start: 07-27-2024 End: 07-27-[address] [facility] Start: 07-19-2024 End: 07-19-2024 Office outpatient new 45 minutes Saba Sam PLANT OPERATOR CONTROL ROOM OPERATOR - FERRYBOAT OPERATOR HELPER Work Phone: [facility] [place] Comment on above: Memory loss (Primary Dx); Visual hallucinations; Tremor of both hands; Depression with anxiety; Vitamin D deficiency Start: 07-19-2024 End: 07-19-2024 ambulatory [facility] Start: 07-14-2024 End: 08-09-2024 Telephone encounter Lucy Sanz DO Work Phone: [facility] [place] Comment on above: Appointment Appointment Request Start: 07-11-2024 End: 07-13-2024 Telephone encounter Antony Anderson MD Work Phone: [facility] Comment on above: Referral Start: 06-23-2024 End: 06-30-2024 Evaluation and management of inpatient Asher Rodriguez DO Work Phone: [facility] Medical Surgical Unit MSU 4S Comment on above: Pain and swelling of left lower leg (Primary Dx); Laceration of left lower extremity, initial encounter Start: 06-18-2024 End: 06-18-2024 Emergency department patient visit [facility] ED Comment on above: Laceration of left l ower leg, initial encounter (Primary Dx) Start: 06-08-2024 End: 06-08-2024 Telephone encounter Maria G Jarvis PA-C Work Phone: [facility] [place] Start: 05-27-2024 End: 05-28-2024 Subsequent hospital visit by physician Antony Anderson MD Work Phone: [facility] JARED 1W Start: 05-27-2024 End: 05-28-2024 LEAH BELLA [facility] Start: 05-24-2024 End: 05-24-[address] [facility] Start: 05-19-2024 End: 05-19-2024 Subsequent hospital visit by physician Antony Anderson MD Work Phone: [facility] CT Imaging Comment on above: Right hip pain Start: 05-19-2024 End: 05-19-[address] [facility] Start: 05-16-2024 End: 05-20-2024 Telephone encounter Antony Anderson MD Work Phone: [facility] - [place]oni Fernández Comment on above: Surgery Scheduling ( [facility]THA ) Start: 05-14-2024 End: 05-14-2024 ambulatory Sola Clemens RN [facility] Clinical Communication Start: 05-14-2024 End: 05-14-2024 Patient encounter procedure Sola Clemens RN [facility] Clinical Communication Start: 05-13-2024 End: 05-13-2024 Telephone encounter Antony Anderson MD Work Phone: [facility] Comment on above: Surgery Scheduling Start: 05-13-2024 End: 05-13-2024 Office outpatient new 45 minutes Naya Vences MD Work Phone: [facility] Comment on above: Preop cardiovascular exam (Primary Dx); Right hip pain; TIA (transient ischemic attack); Congestive heart failure, unspecified HF chronicity, unspecified heart failure type (HCC); Benign essential HTN; Coronary artery disease involving [place] coronary artery of [place] heart without angina pectoris; Mixed hyperlipidemia Start: 05-13-2024 End: 05-13-2024 Patient encounter status Naya Vences MD Work Phone: [facility] [employer] Work Phone: Start: 05-13-2024 End: 05-13-[address] [facility] Start: 05-13-2024 End: 05-13-2024 Encounter for preprocedural cardiovascular examination NAYA VENCES [facility] Start: 05-11-2024 End: 05-11-2024 Office outpatient new 45 minutes Antony Anderson MD Work Phone: [facility] [place] Comment on above: Right hip pain (Prim roopa Dx); Primary osteoarthritis of right hip Start: 05-11-2024 End: 05-11-2024 Subsequent hospital visit by physician Maria G Jarvis PA-C Work Phone: [facility] Comment on above: Right hip pain Start: 05-11-2024 End: 05-11-[address] [facility] Start: 04-29-2024 End: 04-29-2024 Office outpatient new 30 minutes Juaquin Amos MD Work Phone: [facility] [place] Comment on above: Primary osteoarthrit is of right hip (Primary Dx) Start: 04-29-2024 End: 04-29-[address] [facility] Start: 04-01-2024 End: 07-01-2024 Subsequent hospital visit by physician Wiliam Fernandez MD Work Phone: [facility] X-ray Imaging Comment on above: Pain in right hip Pain in right hip (P rimary Dx) Start: 04-01-2024 End: 04-01-[address] [facility] Start: 03-24-2024 End: 03-25-2024 Refill Mattie Lopez MD Work Phone: [facility] [place] Comment on above: Gastroesophageal ref lux disease without esophagitis; Generalized abdominal pain Start: 03-09-2024 End: 03-09-2024 ambulatory Bev Rodriguez RN [facility] Clinical Communication Start: 03-09-2024 End: 03-09-2024 Patient encounter procedure Bev Rodriguez RN [facility] Clinical Communication Start: 02-29-2024 End: 02-29-2024 Telephone encounter Beto Gutierrez MD Work Phone: [facility] Start: 02-26-2024 End: 05-27-2024 Subsequent hospital visit by physician Wiliam Fernandez MD Work Phone: [facility] Comment on above: Pain in right should er Pain in right should er (Primary Dx) Start: 02-26-2024 End: 02-26-2024 ambulatory WILIAM FERNANDEZ [facility] Start: 02-03-2024 End: 02-03-2024 Telephone encounter Mattie Lopez MD Work Phone: [facility] Comment on above: Appointment (Resched ule) Start: 12-15-2023 End: 12-15-2023 Telephone encounter Cristo Coyne MD Work Phone: [facility] Urology Start: 12-01-2023 End: 12-10-2023 Telephone encounter Cristo Coyne MD Work Phone: [facility] Urology Comment on above: Surgery Scheduling Start: 12-01-2023 End: 12-01-2023 Office outpatient visit 25 minutes Cristo Coyne MD Work Phone: [facility] Urology Comment on above: Benign prostatic hyp erplasia with post-void dribbling (Primary Dx); Gross hematuria Start: 11-25-2023 End: 11-25-2023 Orders Only Cristo Coyne MD Work Phone: [facility] Start: 11-03-2023 End: 11-03-2023 Postop follow up visit related to original px Sherlyn Del Rio PA-C Work Phone: [facility] Plastic & Reconstructive Surgery Comment on above: Postoperative state (Primary Dx) Start: 10-01-2023 End: 10-02-2023 Refill Harsha Bell PLANT OPERATOR CONTROL ROOM OPERATOR - FERRYBOAT OPERATOR HELPER Work Phone: [facility] Comment on above: Gastroesophageal ref lux disease without esophagitis; Generalized abdominal pain Start: 10-01-2023 End: 10-02-2023 Emergency department patient visit Louisa Marina MD Work Phone: [facility] Clinical Decision Unit CDU Comment on above: Near syncope (Primar y Dx); Status post panniculectomy; Generalized abdominal pain; Constipation, unspecified constipation type; Lightheadedness; Pre-syncope Start: 09-29-2023 End: 09-29-2023 Postop follow up visit related to original px Sherlyn Del Rio PA-C Work Phone: [facility] Plastic & Reconstructive Surgery Comment on above: Postop check (Primar y Dx) Start: 09-28-2023 Telephone encounter Beto kaminski MD Work Phone: [facility] Plastic & Reconstructive Surgery Comment on above: Med Refill Start: 09-27-2023 ambulatory Karol Wallis RN [facility] C linical Communication Start: 09-27-2023 Patient encounter procedure Karol Wallis RN [facility] Clinical Communication Start: 09-26-2023 ambulatory Eduarda Crisostomo RN [facility] Clinical Communication Start: 09-26-2023 Patient encounter procedure Eduarda Crisostomo RN [facility] Clinical Communication Start: 09-23-2023 End: 09-25-2023 Evaluation and management of inpatient Beto Gutierrez MD Work Phone: [facility] Medical Surgical Unit MSU 1E Comment on above: Abdominal pannus (Pr imary Dx); Pannus, abdominal Start: 09-22-2023 Admission to [facility] Beto Gutierrez MD Work Phone: [facility] Plastic & Reconstructive Surgery Start: 09-22-2023 ambulatory Beto brennan MD Work Phone: [facility] Plastic & Reconstructive Surgery Start: 09-22-2023 End: 09-22-2023 Postop follow up visit related to original px Beto Gutierrez MD Work Phone: [facility] Plastic & Reconstructive Surgery Comment on above: Postop check (Primar y Dx) Start: 09-17-2023 ambulatory Mely Tucker RN [facility] Clinical Communication Start: 09-17-2023 Patient encounter procedure Mely Tucker RN [facility] Clinical Communication Start: 09-16-2023 End: 11-09-2023 Telephone encounter Cristo Coyne MD Work Phone: [facility] Urology Comment on above: Post-op Follow-up Start: 09-16-2023 End: 09-16-2023 Anesthesia consultation No Anesthesiologist - [facility]/Negra CHAN Work Phone: [facility] MAIN OR Start: 09-16-2023 End: 09-16-2023 Subsequent hospital visit by physician [facility] Radiology Comment on above: Arrived Start: 09-16-2023 End: 09-16-2023 Subsequent hospital visit by physician Cristo Coyne MD Work Phone: [facility] MAIN OR Comment on above: Gross hematuria Start: 09-08-2023 End: 09-08-2023 Office outpatient visit 15 minutes Mariana Ball PLANT OPERATOR CONTROL ROOM OPERATOR - ESCROW MANAGER Work Phone: [facility] Urology Comment on above: Benign prostatic hyp erplasia with post-void dribbling (Primary Dx); History of gross hematuria Start: 08-27-2023 End: 08-27-2023 Office outpatient visit 15 minutes Mariana Ball PLANT OPERATOR CONTROL ROOM OPERATOR - ESCROW MANAGER Work Phone: [facility] Urology Comment on above: Gross hematuria (Vangie sarbjit Dx); Urethral pain; Benign prostatic hyperplasia with post-void dribbling Start: 08-24-2023 Telephone encounter Cristo Coyne MD Work Phone: [facility] Urology Start: 08-21-2023 End: 08-22-2023 Emergency department patient visit Eduard Guan MD Work Phone: [facility] ED Comment on above: Acute cystitis with hematuria (Primary Dx) Start: 08-21-2023 Telephone encounter Raghav olvera MD Work Phone: [facility] Comment on above: Appointment Request Start: 08-18-2023 End: 08-20-2023 Evaluation and management of inpatient Cornelius Chance MD Work Phone: [facility] Medical Surgical Unit MSU 1E Comment on above: Hematuria (Primary D x) Start: 08-17-2023 End: 08-17-2023 Emergency department patient visit Delia Zepeda MD Work Phone: [facility] ED Comment on above: Urinary tract infect ion with hematuria, site unspecified (Primary Dx) Start: 08-10-2023 End: 08-10-2023 Patient encounter procedure Cristo Coyne MD Work Phone: [facility] Urology Comment on above: Benign prostatic hyp erplasia with post-void dribbling (Primary Dx) Start: 08-10-2023 End: 08-10-2023 Office outpatient visit 25 minutes Deborah Jasso APRN - ESCROW MANAGER Work Phone: [facility] Comment on above: GERD without esophag itis (Primary Dx); Hyperlipidemia associated with type 2 diabetes mellitus (HCC) (HCC); BMI 36.0-36.9,adult; Class 2 severe obesity due to excess calories with serious comorbidity and body mass index (BMI) of 38.0 to 38.9 in adult ([facility]) Start: 08-03-2023 End: 08-03-2023 Office outpatient visit 15 minutes Deb Kent APRN - FERRYBOAT OPERATOR HELPER Work Phone: [facility] Urology Comment on above: Benign prostatic hyp erplasia with post-void dribbling (Primary Dx); Anxiety due to invasive procedure Start: 07-19-2023 Refill Harsha Cordero NP Work Phone: [facility] Comment on above: Gastroesophageal ref lux disease without esophagitis; Generalized abdominal pain Start: 07-14-2023 Telephone encounter Beto kaminski MD Work Phone: [facility] Plastic & Reconstructive Surgery Comment on above: New Med Request (Pt is asking if the Dr is going to call in that medication that he and the Dr discussed that will help him lose the last bit of weight before surgery. Please call to discuss ) Start: 06-24-2023 Telephone encounter Beto akminski MD Work Phone: [facility] Plastic & Reconstructive Surgery Comment on above: Surgery Scheduling ( [facility]) Start: 06-23-2023 End: 06-23-2023 Office outpatient new 45 minutes Beto Gutierrez MD Work Phone: [facility] Plastic & Reconstructive Surgery Comment on above: Abdominal pannus (Pr imary Dx) Start: 06-22-2023 End: 06-22-2023 Office outpatient new 45 minutes Deborah Jasso APRN - ESCROW MANAGER Work Phone: [facility] [place] Comment on above: Hyperlipidemia assoc iated with type 2 diabetes mellitus (HCC) (HCC) (Primary Dx); Essential hypertension; Deficiency of multiple nutrient elements; Class 2 severe obesity due to excess calories with serious comorbidity and body mass index (BMI) of 38.0 to 38.9 in adult (HCC); Vitamin D deficiency Start: 05-05-2023 Telephone encounter Deb Kent PLANT OPERATOR CONTROL ROOM OPERATOR - FERRYBOAT OPERATOR HELPER Work Phone: [facility] Urology Comment on above: Reschedule Start: 05-04-2023 Telephone encounter Deb Kent PLANT OPERATOR CONTROL ROOM OPERATOR - FERRYBOAT OPERATOR HELPER Work Phone: [facility] Urology Start: 04-10-2023 End: 04-10-2023 Emergency department patient visit Sophie Haines MD Work Phone: [facility] Comment on above: Generalized abdomina l pain (Primary Dx); BRBPR (bright red blood per rectum); Hx of gastric bypass Start: 03-04-2023 End: 03-04-2023 Emergency department patient visit Wiliam Barrientos Josafat BELLE Work Phone: [facility] Comment on above: Syncope, unspecified syncope type (Primary Dx) Start: 02-27-2023 End: 03-03-2023 Evaluation and management of inpatient Sinan Rodriguez MD Work Phone: [facility] Surgical Progressive Care Unit PCU H6 Comment on above: Abdominal pain, epig astric (Primary Dx) Start: 02-21-2023 End: 02-21-2023 Emergency department patient visit Bubba Smith MD Work Phone: [facility] EMERGENCY DEPT Comment on above: Abdominal pain, epig astric (Primary Dx); Hematemesis with nausea Start: 02-21-2023 End: 02-21-2023 Subsequent hospital visit by physician [facility] Non-Invasive Cardiology Comment on above: Arrived Start: 02-17-2023 Documentation procedure Rodrigue Bell NP Work Phone: [facility] [place] Comment on above: EGD Start: 02-17-2023 Telephone encounter Lis Richards [facility] Laproscopic Surgery Start: 02-16-2023 Telephone encounter Libia Nunez [facility] [place] Comment on above: Abdominal Pain Start: 02-15-2023 End: 02-15-2023 Emergency department patient visit Jenin Moser APRN Work Phone: [facility] Comment on above: Epigastric pain (Vangie sarbjit Dx) Start: 12-01-2022 End: 12-01-2022 Office outpatient visit 25 minutes Louisa Cabello DO Work Phone: [facility] [place] Comment on above: Hyperlipidemia, unsp ecified hyperlipidemia type (Primary Dx); GERD without esophagitis; Hypothyroidism, unspecified type; Morbid obesity with BMI of 40.0-44.9, adult (HCC); Deficiency of multiple nutrient elements; Yeast dermatitis Start: 07-17-2022 Telephone encounter Irene tesfaye RD Work Phone: [facility] [place] Comment on above: Nutrition Counseling (7M POP nutrition call) Start: 07-03-2022 End: 07-03-2022 Emergency department patient visit Mann Morrison DO Work Phone: [facility] Comment on above: COVID-19 (Primary Dx ) Start: 06-09-2022 End: 06-10-2022 Emergency department patient visit Fiordaliza Cuellar DO Work Phone: [facility] Comment on above: Flank pain (Primary Dx); Musculoskeletal pain; Cellulitis, unspecified cellulitis site Start: 04-24-2022 Refill Savanah reeves MD Work Phone: [facility] [place] [facility] Comment on above: Obstructive sleep ap royce syndrome Start: 01-13-2022 ambulatory UNKNOWN PROVIDER [facility] Start: 01-13-2022 End: 01-13-2022 Subsequent hospital visit by physician Louisa Cabello DO Work Phone: [facility] Start: 01-06-2022 ambulatory TONIA BRIDLE [facility] Start: 12-18-2021 End: 12-19-2021 ambulatory UNKNOWN PROVIDER [facility] Start: 12-17-2021 End: 12-19-2021 Emergency department patient visit Julianne Welch MD Work Phone: [facility] CDU Comment on above: Post-operative pain (Primary Dx); Elevated d-dimer Start: 12-09-2021 ambulatory [facility] Start: 12-09-2021 End: 12-09-2021 Subsequent hospital visit by physician Louisa Cabello DO Work Phone: [facility] Start: 12-03-2021 End: 12-05-2021 Evaluation and management of inpatient [facility] Start: 12-03-2021 End: 12-05-2021 Evaluation and management of inpatient Louisa Caebllo DO Work Phone: [facility] Comment on above: Post-op pain (Primar y Dx) Start: 11-26-2021 ambulatory [facility] Start: 11-26-2021 Encounter for other preprocedural examination Louisa Perrinanne [facility] Start: 11-20-2021 End: 11-20-2021 Preprocedural examination done Tonia Riggs PLANT OPERATOR CONTROL ROOM OPERATOR - FERRYBOAT OPERATOR HELPER Work Phone: [facility] Rad[facility] Start: 11-20-2021 End: 11-20-2021 Subsequent hospital visit by physician Tonia Riggs PLANT OPERATOR CONTROL ROOM OPERATOR - FERRYBOAT OPERATOR HELPER Work Phone: [facility] Radiology Comment on above: Pre-operative exam Start: 11-18-2021 ambulatory [facility] Start: 11-18-2021 End: 11-18-2021 Subsequent hospital visit by physician Louisa Cabello DO Work Phone: [facility] Start: 10-21-2021 End: 10-21-2021 Emergency department patient visit Bubba Smith MD Work Phone: [facility] ED Comment on above: Knee pain, unspecifi ed chronicity, unspecified laterality (Primary Dx) Start: 10-21-2021 End: 10-21-2021 Subsequent hospital visit by physician Deborah Jasso PLANT OPERATOR CONTROL ROOM OPERATOR - ESCROW MANAGER Work Phone: [facility] [place] Dept Start: 10-02-2021 End: 10-03-2021 Emergency department patient visit Julianne Welch MD Work Phone: [facility] ED Comment on above: Fall, initial encoun ter (Primary Dx); Right hip pain Start: 09-23-2021 End: 09-23-2021 Subsequent hospital visit by physician Deborah Jasso PLANT OPERATOR CONTROL ROOM OPERATOR - ESCROW MANAGER Work Phone: [facility] [place] [facility] Start: 09-19-2021 End: 09-19-2021 Subsequent hospital visit by physician Hamzah Johnson MD Work Phone: [facility] Radiology Comment on above: Pain in both knees, unspecified chronicity Start: 08-12-2021 End: 08-12-2021 Subsequent hospital visit by physician Deborah Jasso PLANT OPERATOR CONTROL ROOM OPERATOR - ESCROW MANAGER Work Phone: [facility] [place] [facility] Start: 07-15-2021 End: 07-15-2021 Subsequent hospital visit by physician Deborah Jasso PLANT OPERATOR CONTROL ROOM OPERATOR - ESCROW MANAGER Work Phone: [facility] [place] [facility] Start: 06-18-2021 End: 07-18-2021 Patient encounter status Deborah Jasso APRN - ESCROW MANAGER Work Phone: [facility] Work Phone: Start: 06-15-2021 End: 06-15-2021 Emergency department patient visit Ramón Marcus MD Work Phone: [facility] Comment on above: Abdominal pain, epig astric (Primary Dx) Start: 03-20-2021 End: 03-20-2021 Subsequent hospital visit by physician Jenni Moser PLANT OPERATOR CONTROL ROOM OPERATOR - FERRYBOAT OPERATOR HELPER Work Phone: [facility] Start: 03-06-2021 End: 03-06-2021 Subsequent hospital visit by physician Jenni Moser PLANT OPERATOR CONTROL ROOM OPERATOR - FERRYBOAT OPERATOR HELPER Work Phone: [facility] Start: 03-05-2021 ambulatory [facility] Start: 02-25-2021 End: 03-27-2021 Patient encounter status Jenni Moser PLANT OPERATOR CONTROL ROOM OPERATOR - FERRYBOAT OPERATOR HELPER Work Phone: [facility] Start: 02-13-2021 End: 02-14-[address] [facility] Start: 02-13-2021 End: 02-14-2021 Subsequent hospital visit by physician Savanah Gomez MD Work Phone: [facility] Start: 02-13-2021 End: 02-13-2021 Subsequent hospital visit by physician Nila Lopez MD Work Phone: [facility] Start: 02-11-2021 End: 02-11-2021 Emergency department patient visit Brijesh Snell MD Work Phone: [facility] Comment on above: Lightheadedness (Vangie sarbjit Dx); Hyperglycemia due to diabetes mellitus (HCC) Start: 02-09-2021 End: 02-09-2021 Emergency department patient visit Brijesh Luong MD Work Phone: [facility] Comment on above: Hyperglycemia (Prima ry Dx); Chest pain, unspecified type; Epigastric pain; Leg cramping Start: 01-24-2021 End: 01-24-2021 [facility] Start: 01-24-2021 End: 01-24-2021 Subsequent hospital visit by physician Louisa Cabello DO Work Phone: [facility] Comment on above: Arrived Start: 01-14-2021 End: 01-14-2021 Subsequent hospital visit by physician Mikey Bauman MD Work Phone: [facility] Start: 01-06-2021 End: 01-07-2021 Emergency department patient visit Bubba Smith MD Work Phone: [facility] Comment on above: Leg swelling (Primar y Dx) Start: 12-04-2020 End: 12-04-2020 Subsequent hospital visit by physician Lelo Jenkins PA-C Work Phone: [facility] Comment on above: Lumbar stenosis with neurogenic claudication; History of fusion of cervical spine; Spondylolisthesis of lumbar region Start: 12-02-2020 End: 12-02-2020 Subsequent hospital visit by physician Savanah Gomez MD Work Phone: [facility] Start: 11-28-2020 End: 11-28-2020 Subsequent hospital visit by physician Nila Lopez MD Work Phone: [facility] Start: 11-27-2020 End: 11-27-2020 Subsequent hospital visit by physician Louisa Cabello DO Work Phone: [facility] Start: 11-23-2020 End: 11-23-2020 Subsequent hospital visit by physician Mikey Bauman MD Work Phone: [facility] Start: 11-19-2020 End: 11-19-2020 Subsequent hospital visit by physician Andrzej Whittaker MD Work Phone: [facility] General Surgery Comment on above: Arrived Start: 11-13-2020 End: 11-13-2020 Patient encounter status Andrzej Whittaker MD Work Phone: [facility] Start: 11-13-2020 End: 11-13-2020 Subsequent hospital visit by physician Andrzej Whittaker MD Work Phone: [facility] Pre-Admit Testing Comment on above: Pre-op testing (Prim roopa Dx) Start: 11-08-2020 End: 11-08-2020 Subsequent hospital visit by physician Savanah Gomez MD Work Phone: [facility] Pulm Function Test Comment on above: Arrived Start: 11-01-2020 End: 11-01-2020 Emergency department patient visit Chante Juarez MD Work Phone: [facility] Comment on above: Bladder spasm (Prima ry Dx); Urinary retention; Hematuria, unspecified type Start: 10-31-2020 End: 10-31-2020 Emergency department patient visit Benjamín Blue MD Work Phone: [facility] Comment on above: Retention of urine ( Primary Dx) Start: 10-30-2020 End: 10-30-2020 Emergency department patient visit Chante Gaytan MD Work Phone: [facility] Emergency Dept Comment on above: Urinary retention (P rimary Dx) Start: 10-29-2020 End: 10-29-2020 Subsequent hospital visit by physician Louisa Cabello DO Work Phone: [facility] Start: 10-26-2020 End: 10-26-2020 Subsequent hospital visit by physician Andrzej Whittaker MD Work Phone: [facility] General Surgery Comment on above: Arrived Start: 10-19-2020 End: 10-19-2020 Subsequent hospital visit by physician Andrzej Whittaker MD Work Phone: [facility] Pre-Admit Testing Comment on above: Arrived Start: 10-04-2020 End: 10-04-2020 Emergency department patient visit Eddie Cubarus DO Work Phone: [facility] Comment on above: Chronic bilateral lo w back pain with bilateral sciatica (Primary Dx); Spasm of muscle Start: 09-29-2020 End: 10-01-2020 Evaluation and management of inpatient Julianne Welch MD Work Phone: [facility] Comment on above: Intractable abdomina l pain (Primary Dx); Edema of both legs Start: 09-11-2020 End: 09-13-2020 Emergency department patient visit Juany Leroy DO Work Phone: [facility] Comment on above: Dyspnea and respirat ory abnormalities (Primary Dx); Bilateral low back pain with bilateral sciatica, unspecified chronicity; Difficulty walking; Frequent falls; Degenerative disc disease, lumbar; Degenerative disc disease, thoracic Start: 08-22-2020 End: 08-26-2020 Evaluation and management of inpatient Naima Rodriguez MD Work Phone: [facility] Start: 08-19-2020 End: 08-19-2020 Emergency department patient visit Quintin Pérez MD Work Phone: [facility] Emergency Dept Comment on above: Leg swelling (Primar y Dx); Right leg pain Start: 08-14-2020 End: 08-14-2020 Subsequent hospital visit by physician Andrzej Whittaker MD Work Phone: [facility] Comment on above: Elective surgery Start: 08-09-2020 End: 08-09-2020 Subsequent hospital visit by physician Kathy Aragon APRN - NASRIN Work Phone: [facility] Start: 08-03-2020 End: 08-03-2020 Emergency department patient visit Eddie Lance DO Work Phone: [facility] Comment on above: Strain of lumbar reg ion, initial encounter (Primary Dx) Start: 07-23-2020 End: 07-25-2020 Emergency department patient visit Louisa Marina Work Phone: [facility] TELEMET[facility] Comment on above: TIA (transient ische abdiel attack) (Primary Dx); Neurological symptoms; Shortness of breath; Peripheral edema; Osteoarthritis of spine with radiculopathy, cervical region; Morbid obesity (HCC) Start: 06-08-2020 End: 06-11-2020 Emergency department patient visit Nahun Urban Work Phone: [facility] MED SURG Comment on above: Intractable abdomina l pain (Primary Dx); Diarrhea, unspecified type; Lower GI bleed; Generalized abdominal pain Start: 06-04-2020 End: 06-06-2020 Evaluation and management of inpatient Naima Rodriguez Work Phone: [facility] Comment on above: Generalized abdomina l pain (Primary Dx) Start: 06-01-2020 End: 06-01-2020 Subsequent hospital visit by physician Naima Rodriguez Work Phone: [facility] Start: 04-29-2020 End: 05-01-2020 Evaluation and management of inpatient Louisa Marina Work Phone: [facility] Comment on above: COVID-19 (Primary Dx ); Pneumonia due to organism; Dyspnea and respiratory abnormalities; Fever, unspecified fever cause Start: 04-20-2020 End: 04-21-2020 Emergency department patient visit Julianne Welch Work Phone: [facility] Comment on above: Acute viral syndrome (Primary Dx) Start: 03-30-2020 End: 03-30-2020 Emergency department patient visit Yadiel Cavanaugh Work Phone: [facility] Comment on above: Chest pain, unspecif ied type (Primary Dx); Bilateral leg edema Start: 10-18-2019 End: 10-18-2019 Subsequent hospital visit by physician Mri [facility] (I-Stat/1.5t) [facility] Comment on above: Acute pain of left s hermesulder [M25.512] Procedures Date Procedure Procedure Detail Performing Clinician Start: 02-15-2025 Urnls dip stick/tablet rgnt auto w/o microscopy Navjot Albert PA-C Work Phone: Start: 02-08-2025 Follow-up visit WILIAM FERNANDEZ Start: 02-01-2025 Drug tst prsmv read instrmnt asstd dir opt obs Elba Rojas DO Work Phone: Start: 02-01-2025 Follow-up visit WILIAM FERNANDEZ Start: 01-26-2025 Follow-up visit IWLIAM FERNANDEZ Start: 12-08-2024 Follow-up visit WILIAM FERNANDEZ Start: 11-23-2024 Follow-up visit WILIAM FERNANDEZ Start: 09-27-2024 C-reactive protein Vanessa Miles PA-C Work Phone: Start: 09-27-2024 Sedimentation rate rbc automated Vanessa purcell PA-C Work Phone: Start: 09-27-2024 C-reactive protein Maria G ORTA-C Work Phone: Start: 09-27-2024 Sedimentation rate rbc automated Maria G Jarvis PA-C Work Phone: Start: 09-26-2024 Follow-up visit WILIAM FERNANDEZ Start: 09-20-2024 Follow-up visit WILIAM FERNANDEZ Start: 08-23-2024 Mri spinal canal lumbar w/o contrast material Wiliam Fernandez MD Work Phone: Start: 08-03-2024 Ct head/brain w/o contrast material Saba Sam PLANT OPERATOR CONTROL ROOM OPERATOR - FERRYBOAT OPERATOR HELPER Work Phone: Start: 07-27-2024 Follow-up visit WILIAM FERNANDEZ Start: 07-27-2024 Radex hip unilateral with pelvis 2-3 views Maria G Jarvis PA-C Work Phone: Start: 07-19-2024 Follow-up visit WILIAM FERNANDEZ Start: 06-30-2024 Basic metabolic panel calcium total Khanh Lee MD Work Phone: Start: 06-29-2024 Basic metabolic panel calcium total Khanh Lee MD Work Phone: Start: 06-29-2024 C-reactive protein Laura eVronica MD Work Phone: Start: 06-28-2024 Basic metabolic panel calcium total Khanh Lee MD Work Phone: Start: 06-27-2024 Comprehensive metabolic panel Yadiel paredes MD Work Phone: Start: 06-26-2024 Cul bact xcpt urine blood/stool aerobic isol Yadiel Boss MD Work Phone: Start: 06-26-2024 Comprehensive metabolic panel Yadiel paredes MD Work Phone: Start: 06-25-2024 Glucose quantitative blood xcpt reagent strip Yadiel Boss MD Work Phone: Start: 06-25-2024 Comprehensive metabolic panel Yadiel paredes MD Work Phone: Start: 06-25-2024 Manual Differential panel - Blood Lauro Boss MD Work Phone: Start: 06-24-2024 Glucose quantitative blood xcpt reagent strip Yadiel Boss MD Work Phone: Start: 06-24-2024 Comprehensive metabolic panel Yadiel paredes MD Work Phone: Start: 06-24-2024 Manual Differential panel - Blood Lauro Boss MD Work Phone: Start: 06-23-2024 Dup-scan xtr veins unilateral/limited study Asher R Rodriguez DO Work Phone: Start: 06-23-2024 Ct abdomen & pelvis w/o contrast material Asher R Rodriguez DO Work Phone: Start: 06-23-2024 Radiologic examination tibia & fibula 2 views Asher R Rodriguez DO Work Phone: Start: 06-23-2024 Basic metabolic panel calcium total Asher R Rodriguez DO Work Phone: Start: 06-23-2024 C-reactive protein Asher R Rodriguez DO Work Phone: Start: 06-23-2024 Manual Differential panel - Blood Asher R Rodriguez DO Work Phone: Start: 06-18-2024 Smpl repair scalp/neck/ax/genit/trunk 2.6-7.5cm Shelbi Gandara PA-C Work Phone: Start: 05-28-2024 Basic metabolic panel calcium total Ivelisse ORTA-C Work Phone: Start: 05-27-2024 Radiologic examination pelvis 1/2 views Ivelisse Rico PA-C Work Phone: Start: 05-27-2024 FL GUIDANCE OR USE ONLY - NON-RESULTABLE Antony Anderson MD Work Phone: Start: 05-27-2024 End: 05-27-2024 Arthrp acetblr/prox fem prostc agrft/algrft Antony Anderson MD Work Phone: Start: 05-19-2024 Ct lower extremity w/o contrast material Antony Anderson MD Work Phone: Start: 05-13-2024 Ecg routine ecg w/least 12 lds w/i&r Naya Vences MD Work Phone: Start: 05-13-2024 Follow-up visit WILIAM JIM Start: 05-11-2024 Follow-up visit WILIAM JIM Start: 04-29-2024 Follow-up visit WILIAM FERNANDEZ Start: 10-02-2023 Echo tthrc r-t 2d w/wom-mode compl spec&colr d Soni Otto [facility] Work Phone: Start: 10-02-2023 Basic metabolic panel calcium total Soni Otto [facility] Work Phone: Start: 10-01-2023 Assay of troponin quantitative Soni Otto [facility] Work Phone: Start: 10-01-2023 Assay of thyroid stimulating hormone tsh Soni Otto [facility] Work Phone: Start: 10-01-2023 Urinalysis complete panel - Urine Marisel Fink [email or web address] Work Phone: Start: 10-01-2023 Urnls dip stick/tablet reagent auto microscopy Marisel Fink [facility] Work Phone: Start: 10-01-2023 Comprehensive metabolic panel Marisel Bar danae [facility] Work Phone: Start: 10-01-2023 Ct abdomen & pelvis w/o contrast material Marisel Fink [facility] Work Phone: Start: 10-01-2023 Ecg routine ecg w/least 12 lds trcg only w/o i&r Marisel Fink [facility] Work Phone: Start: 10-01-2023 Thyrotropin [Units/volume] in Serum or Plasma Harsha Bell [facility] Work Phone: Start: 09-25-2023 Basic metabolic panel calcium total Antony Prasad [facility] Work Phone: Start: 09-23-2023 Glucose quantitative blood xcpt reagent strip Beto Gutierrez MD Work Phone: Start: 09-23-2023 Glucose quantitative blood xcpt reagent strip Beto Gutierrez MD Work Phone: Start: 09-23-2023 End: 09-23-2023 Excision skin abd infraumbilical panniculectomy Beto Gutierrez MD Work Phone: Start: 09-23-2023 Glucose quantitative blood xcpt reagent strip Beto Gutierrez MD Work Phone: Start: 09-16-2023 FL GUIDANCE OR USE ONLY - NON-RESULTABLE Cristo Coyne MD Work Phone: Start: 09-16-2023 IN AN ELECTIVE SUPRAGLOTTIC AIRWAY Corby Cantor PLANT OPERATOR CONTROL ROOM OPERATOR - FURNACE OPERATOR AND TENDER Work Phone: Start: 08-21-2023 Urinalysis complete panel - Urine Adithya Guan MD Work Phone: Start: 08-21-2023 Urnls dip stick/tablet reagent auto microscopy Eduard Guan MD Work Phone: Start: 08-21-2023 Ecg routine ecg w/least 12 lds trcg only w/o i&r Eduard Guan MD Work Phone: Start: 08-21-2023 Comprehensive metabolic panel Eduard wynn MD Work Phone: Start: 08-20-2023 Comprehensive metabolic panel Yadiel paredes MD Work Phone: Start: 08-19-2023 Basic metabolic panel calcium total Floyd Roca Germán Work Phone: Start: 08-18-2023 Cytp slctv cell enhancement interpj xcpt c/v Mariana Ball PLANT OPERATOR CONTROL ROOM OPERATOR - ESCROW MANAGER Work Phone: Start: 08-18-2023 Culture bacterial quanttative colony count urine Mariana Ball PLANT OPERATOR CONTROL ROOM OPERATOR - ESCROW MANAGER Work Phone: Start: 08-18-2023 Insertion of catheter into urinary bladder Mariana Ball PLANT OPERATOR CONTROL ROOM OPERATOR - ESCROW MANAGER Work Phone: Start: 08-18-2023 Ct abdomen & pelvis w/o contrast material Cornelius Chance MD Work Phone: Start: 08-18-2023 Comprehensive metabolic panel Cornelius Chance MD Work Phone: Start: 08-17-2023 Basic metabolic panel calcium total Delia Zepeda MD Work Phone: Start: 08-17-2023 Urinalysis complete panel - Urine Román Zepeda MD Work Phone: Start: 08-17-2023 Urnls dip stick/tablet reagent auto microscopy Delia Zepeda MD Work Phone: Start: 04-10-2023 Ct abdomen & pelvis w/o contrast material Melissa Hall PA-C Work Phone: Start: 04-10-2023 Comprehensive metabolic panel Melissa arreola PA-C Work Phone: Start: 03-04-2023 Radiologic exam chest single view Wiliam Caruso DO Work Phone: Start: 03-04-2023 Ecg routine ecg w/least 12 lds trcg only w/o i&r Wiliam Caruso DO Work Phone: Start: 03-04-2023 Basic metabolic panel calcium total Wiliam Caruso DO Work Phone: Start: 03-03-2023 Basic metabolic panel calcium total Brielle Fofana MD Work Phone: Start: 03-02-2023 Glucose quantitative blood xcpt reagent strip Louisa Cabello DO Work Phone: Start: 03-02-2023 End: 03-02-2023 Esophagogastroduodenoscopy transoral diagnostic Louisa Cabello DO Work Phone: Start: 03-02-2023 Glucose quantitative blood xcpt reagent strip Louisa Cabello DO Work Phone: Start: 03-02-2023 Basic metabolic panel calcium total Africa Tineo MD Work Phone: Start: 03-01-2023 Iadna-dna/rna gi pthgn multiplex probe tq 12- Africa Tineo MD Work Phone: Start: 03-01-2023 Basic metabolic panel calcium total Africa Tineo MD Work Phone: Start: 02-28-2023 25 hydroxy includes fractions if performed Brijesh Taylor MD Work Phone: Start: 02-28-2023 Radiologic exam upr gi trc single contrast study Africa Tineo MD Work Phone: Start: 02-28-2023 Basic metabolic panel calcium total Africa Tineo MD Work Phone: Start: 02-28-2023 Thyrotropin [Units/volume] in Serum or Plasma Sinan Rodriguez MD Work Phone: Start: 02-27-2023 POCT GLUCOSE METER Sinan Rodriguez MD Work Phone: Start: 02-27-2023 Glucose quantitative blood xcpt reagent strip Sinan Rodriguez MD Work Phone: Start: 02-27-2023 Us abdominal real time w/image limited Vanessa ORTA Work Phone: Start: 02-27-2023 Basic metabolic panel calcium total Vanessa ORTA Work Phone: Start: 02-21-2023 Radiologic exam chest single view Dick Merlos DO Work Phone: Start: 02-21-2023 Comprehensive metabolic panel Dick Merlos DO Work Phone: Start: 02-21-2023 Ecg routine ecg w/least 12 lds trcg only w/o i&r Bubba Smith MD Work Phone: Start: 02-15-2023 Ct abdomen & pelvis w/o contrast material Marisel Fink PLANT OPERATOR CONTROL ROOM OPERATOR - FERRYBOAT OPERATOR HELPER Work Phone: Start: 02-15-2023 Comprehensive metabolic panel Marisel fink PLANT OPERATOR CONTROL ROOM OPERATOR - FERRYBOAT OPERATOR HELPER Work Phone: Start: 07-03-2022 Radiologic exam chest single view Sinan Rodriguez MD Work Phone: Start: 07-03-2022 Basic metabolic panel calcium total Sinan Rodriguez MD Work Phone: Start: 07-03-2022 Ecg routine ecg w/least 12 lds trcg only w/o i&r Mann Morrison DO Work Phone: Start: 06-10-2022 Basic metabolic panel calcium total Elvia Becerril PA-C Work Phone: Start: 06-09-2022 Ct abdomen & pelvis w/o contrast material Elvia Becerril PA-C Work Phone: Start: 06-09-2022 Urnls dip stick/tablet reagent auto microscopy Sangita Oswald DO Work Phone: Start: 12-19-2021 Potassium serum plasma/whole blood Saba Hernandez MD Work Phone: Start: 12-19-2021 Assay of magnesium Latha Theodore MD Work Phone: Start: 12-19-2021 BASIC METABOLIC PANEL W/ REFLEX TO MG FOR LOW K Latha Theodore MD Work Phone: Start: 12-18-2021 Pulmonary ventilation & perfusion imaging Latha Theodore MD Work Phone: Start: 12-17-2021 Urnls dip stick/tablet rgnt auto w/o microscopy Dallas Tabares MD Work Phone: Start: 12-17-2021 Antibody screen Julianne Welch MD Work Phone: Start: 12-17-2021 Blood typing serologic abo Dallas Tabares MD Work Phone: Start: 12-17-2021 Comprehensive metabolic panel Dallas de guzman MD Work Phone: Start: 12-17-2021 Ct abdomen & pelvis w/o contrast material Dallas Tabares MD Work Phone: Start: 12-17-2021 Ecg routine ecg w/least 12 lds w/i&r Dallas Tabares MD Work Phone: Start: 12-05-2021 Basic metabolic panel calcium total Ramón Jackson MD Work Phone: Start: 12-04-2021 Ecg routine ecg w/least 12 lds w/i&r Louisa Cabello DO Work Phone: Start: 12-04-2021 Radiologic exam upr gi trc single contrast study Ramón Jackson MD Work Phone: Start: 12-04-2021 Ct head/brain w/o contrast material Brandon Adan MD Work Phone: Start: 12-04-2021 Radiologic exam chest single view Anuradha Adan MD Work Phone: Start: 12-04-2021 Basic metabolic panel calcium total Ramón Jackson MD Work Phone: Start: 12-03-2021 OPERATIVE REPORT Physician Generic Start: 12-03-2021 End: 12-03-2021 Basic metabolic panel calcium total Ramón Jackson MD Work Phone: Start: 12-03-2021 Level iv surg pathology gross&microscopic exam Louisa Cabello DO Work Phone: Start: 12-03-2021 Gluc bld gluc mntr dev cleared fda spec home use Louisa Cabello DO Work Phone: Start: 11-20-2021 Ecg routine ecg w/least 12 lds w/i&r Tonia R Bridle PLANT OPERATOR CONTROL ROOM OPERATOR - FERRYBOAT OPERATOR HELPER Work Phone: Start: 11-20-2021 Radiologic exam chest 2 views Tonia R Br idle PLANT OPERATOR CONTROL ROOM OPERATOR - FERRYBOAT OPERATOR HELPER Work Phone: Start: 10-21-2021 Ct lumbar spine w/o contrast material Bubba Smith MD Work Phone: Start: 10-21-2021 Gluc bld gluc mntr dev cleared fda spec home use Elvia Becerril PA-C Work Phone: Start: 10-21-2021 Ct lower extremity w/o contrast material Bubba Smith MD Work Phone: Start: 10-02-2021 End: 10-02-2021 Radex hip unilateral with pelvis 2-3 views Julianne Welch MD Work Phone: Start: 07-16-2021 Lipid 1996 panel - Serum or Plasma Irene Rubin RD Work Phone: Start: 06-15-2021 Urnls dip stick/tablet rgnt auto w/o microscopy Ramón Marcus MD Work Phone: Start: 06-15-2021 Comprehensive metabolic panel Ramón Marcus MD Work Phone: Start: 06-15-2021 Ecg routine ecg w/least 12 lds w/i&r Ramón Marcus MD Work Phone: Start: 06-15-2021 Ct abdomen & pelvis w/o contrast material Ramón Marcus MD Work Phone: Start: 02-11-2021 Gluc bld gluc mntr dev cleared fda spec home use Brijesh Snell MD Work Phone: Start: 02-11-2021 Urnls dip stick/tablet rgnt auto w/o microscopy Brijesh Snell MD Work Phone: Start: 02-11-2021 Radiologic exam chest single view Brijesh Snell MD Work Phone: Start: 02-11-2021 Ecg routine ecg w/least 12 lds w/i&r Brijesh Snell MD Work Phone: Start: 02-11-2021 Basic metabolic panel calcium total Brijesh Snell MD Work Phone: Start: 02-11-2021 Hepatic function panel Brijesh Snell MD Work Phone: Start: 02-11-2021 Ct head/brain w/o contrast material Brijesh Snell MD Work Phone: Start: 02-09-2021 Gluc bld gluc mntr dev cleared fda spec home use Brijesh Luong MD Work Phone: Start: 02-09-2021 Assay of troponin quantitative Brijesh Luong MD Work Phone: Start: 02-09-2021 Urnls dip stick/tablet rgnt auto w/o microscopy Brijesh Luong MD Work Phone: Start: 02-09-2021 POCT VENOUS Brijesh Luong MD Work Phone: Start: 02-09-2021 Radiologic exam chest single view Brijesh Luong MD Work Phone: Start: 02-09-2021 End: 02-09-2021 Comprehensive metabolic panel Brijesh Luong MD Work Phone: Start: 02-09-2021 Ecg routine ecg w/least 12 lds w/i&r Brijesh Luong MD Work Phone: Start: 01-24-2021 [facility] ENDOSCOPY REPORT 3m Scanning Start: 01-14-2021 End: 01-14-2021 Renal function panel Mikey Bauman MD Work Phone: Start: 01-07-2021 Radiologic exam chest single view Sherry Smith MD Work Phone: Start: 01-07-2021 Basic metabolic panel calcium total Bubba Smith MD Work Phone: Start: 01-07-2021 Ecg routine ecg w/least 12 lds w/i&r Bubba Smith MD Work Phone: Start: 12-04-2020 Radex spine lumbosacral minimum 4 views Iris A Sabrina PA-C Work Phone: Start: 11-23-2020 Renal function panel Mikey Bauman MD Work Phone: Start: 11-23-2020 Urnls dip stick/tablet rgnt auto w/o microscopy Mikey Bauman MD Work Phone: Start: 11-13-2020 Potassium serum plasma/whole blood Allis on [address] [place] PLANT OPERATOR CONTROL ROOM OPERATOR - FERRYBOAT OPERATOR HELPER Work Phone: Start: 11-13-2020 Ecg routine ecg w/least 12 lds w/i&r Arlin N Ian PLANT OPERATOR CONTROL ROOM OPERATOR - FERRYBOAT OPERATOR HELPER Work Phone: Start: 11-08-2020 Brncdilat rspse spmtry pre&post-brncdilat admn Savanah Gomez MD Work Phone: Start: 11-01-2020 Comprehensive metabolic panel Chante rossi MD Work Phone: Start: 11-01-2020 Urnls dip stick/tablet rgnt auto w/o microscopy Chante Juarez MD Work Phone: Start: 11-01-2020 Ct abdomen & pelvis w/o contrast material Chante Juarez MD Work Phone: Start: 10-31-2020 Urnls dip stick/tablet rgnt auto w/o microscopy Rupali Arie PLANT OPERATOR CONTROL ROOM OPERATOR - FERRYBOAT OPERATOR HELPER Work Phone: Start: 10-31-2020 Basic metabolic panel calcium total Rupali Arie PLANT OPERATOR CONTROL ROOM OPERATOR - FERRYBOAT OPERATOR HELPER Work Phone: Start: 10-30-2020 Urnls dip stick/tablet rgnt auto w/o microscopy Louisa Marina MD Work Phone: Start: 10-30-2020 Radiologic exam chest single view Louisa Marina MD Work Phone: Start: 10-30-2020 Basic metabolic panel calcium total Louisa Marina MD Work Phone: Start: 10-30-2020 Hepatic function panel Louisa Duncan Work Phone: Start: 10-30-2020 Ecg routine ecg w/least 12 lds w/i&r Louisa Marina MD Work Phone: Start: 10-26-2020 Creatinine blood Juaquin Peters MD Work Phone: Start: 10-26-2020 POTASSIUM W/ REFLEX TO MAGNESIUM Juaquin Peters MD Work Phone: Start: 10-19-2020 Basic metabolic panel calcium total Delia ORTA Work Phone: Start: 10-01-2020 Assay of magnesium Yovani Ansari MD Work Phone: Start: 09-30-2020 Ecg routine ecg w/least 12 lds w/i&r Angela Jackson MD Work Phone: Start: 09-30-2020 Assay of magnesium Yovani Ansari MD Work Phone: Start: 09-29-2020 Creatinine other source Garcia reeves MD Work Phone: Start: 09-29-2020 End: 09-29-2020 ADD ON LAB TEST Julianne Welch MD Work Phone: Start: 09-29-2020 ADD ON LAB TEST Julianne Welch MD Work Phone: Start: 09-29-2020 Ecg routine ecg w/least 12 lds w/i&r Julianne Welch MD Work Phone: Start: 09-29-2020 End: 09-29-2020 Basic metabolic panel calcium total Julianne Welch MD Work Phone: Start: 09-29-2020 Culture bacterial quanttative colony count urine Julianne Welch MD Work Phone: Start: 09-29-2020 Hepatic function panel Julianne Welch MD Work Phone: Start: 09-29-2020 Urnls dip stick/tablet rgnt auto w/o microscopy Julianne Welch MD Work Phone: Start: 09-29-2020 Ct abdomen & pelvis w/o contrast material Julianne Welch MD Work Phone: Start: 09-13-2020 BASIC METABOLIC PANEL W/ REFLEX TO MG FOR LOW K Kirstin Sánchez MD Work Phone: Start: 09-13-2020 Blood count complete auto&auto difrntl wbc Kirstin Sánchez MD Work Phone: Start: 09-12-2020 Cyanocobalamin vitamin b-12 Kirstin Sánchez MD Work Phone: Start: 09-12-2020 Ct head/brain w/o contrast material Kirstin Sánchez MD Work Phone: Start: 09-12-2020 End: 09-12-2020 Mri spinal canal thoracic w/o contrast matrl Kirstin Sánchez MD Work Phone: Start: 09-12-2020 End: 09-12-2020 Chloride urine Brijesh Primer PLANT OPERATOR CONTROL ROOM OPERATOR - FERRYBOAT OPERATOR HELPER Work Phone: Start: 09-12-2020 Assay of magnesium Kirstin Sánchez MD Work Phone: Start: 09-11-2020 Radex spine lumbosacral 2/3 views Kamar N Polce PA-C Work Phone: Start: 09-11-2020 POCT VENOUS Kamar N Polce PA-C Work Phone: Start: 09-11-2020 ADD ON LAB TEST Kamar N Polce PA-C Work Phone: Start: 09-11-2020 Ecg routine ecg w/least 12 lds w/i&r Kamar N Polce PA-C Work Phone: Start: 09-11-2020 Radiologic exam chest single view Kamar N Polce PA-C Work Phone: Start: 09-11-2020 End: 09-11-2020 Comprehensive metabolic panel Kamar N P olce PA-C Work Phone: Start: 09-11-2020 Urnls dip stick/tablet rgnt auto w/o microscopy Kamar N Polce PA-C Work Phone: Start: 08-26-2020 Gluc bld gluc mntr dev cleared fda spec home use Naima Rodriguez MD Work Phone: Start: 08-26-2020 Assay of magnesium Salome Kim MD Work Phone: Start: 08-26-2020 BASIC METABOLIC PANEL W/ REFLEX TO MG FOR LOW K Salome Kim MD Work Phone: Start: 08-25-2020 Ct head/brain w/o contrast material Jessica Sharp MD Work Phone: Start: 08-25-2020 Radex shoulder complete minimum 2 views Jessica Sharp MD Work Phone: Start: 08-25-2020 Basic metabolic panel calcium total Jessica Sharp MD Work Phone: Start: 08-25-2020 Ecg routine ecg w/least 12 lds w/i&r Naima Rodriguez MD Work Phone: Start: 08-25-2020 BASIC METABOLIC PANEL W/ REFLEX TO MG FOR LOW K Salome Kim MD Work Phone: Start: 08-25-2020 Blood count complete auto&auto difrntl wbc Salome Kim MD Work Phone: Start: 08-24-2020 BASIC METABOLIC PANEL W/ REFLEX TO MG FOR LOW K Salome Kim MD Work Phone: Start: 08-24-2020 Blood count complete auto&auto difrntl wbc Salome Kim MD Work Phone: Start: 08-23-2020 BASIC METABOLIC PANEL W/ REFLEX TO MG FOR LOW K Salome Kim MD Work Phone: Start: 08-23-2020 Blood count complete auto&auto difrntl wbc Salome Kim MD Work Phone: Start: 08-22-2020 ADD ON LAB TEST Naima Rodriguez MD Work Phone: Start: 08-22-2020 MEDICATION ASSISTED TREATMENT PANEL Yovani Ansari MD Work Phone: Start: 08-22-2020 Urine albumin quantitative Salome richards MD Work Phone: Start: 08-22-2020 End: 08-22-2020 Assay of magnesium Salome Kim MD Work Phone: Start: 08-22-2020 BASIC METABOLIC PANEL W/ REFLEX TO MG FOR LOW K Salome Kim MD Work Phone: Start: 08-19-2020 Basic metabolic panel calcium total Daniel Maya DO Work Phone: Start: 08-19-2020 Dup-scan xtr veins complete bilateral study Daniel Maya DO Work Phone: Start: 08-09-2020 Assay of prostate specific antigen total Kathy Aragon PLANT OPERATOR CONTROL ROOM OPERATOR - FERRYBOAT OPERATOR HELPER Work Phone: Start: 07-25-2020 Echo tthrc r-t 2d w/wom-mode compl spec&colr d Zina Ruiz Work Phone: Start: 07-25-2020 Gluc bld gluc mntr dev cleared fda spec home use Louisa Marina Work Phone: Start: 07-25-2020 Us [facility] real time w/image limited Bisher Zuhdi Work Phone: Start: 07-25-2020 Gluc bld gluc mntr dev cleared fda spec home use Louisa Marina Work Phone: Start: 07-25-2020 Blood count complete auto&auto difrntl wbc April Zendlo Work Phone: Start: 07-25-2020 Blood count complete automated April Ze ndlo Work Phone: Start: 07-24-2020 Gluc bld gluc mntr dev cleared fda spec home use Bisher Zuhdi Work Phone: Start: 07-24-2020 Mra head w/o contrst material Zina Ruiz Work Phone: Start: 07-24-2020 Mra neck w/o contrst material Zina Ruiz Work Phone: Start: 07-24-2020 Mri brain brain stem w/o contrast material Zina Ruiz Work Phone: Start: 07-24-2020 Mri spinal canal cervical w/o contrast matrl Bisher Zuhdi Work Phone: Start: 07-24-2020 Gluc bld gluc mntr dev cleared fda spec home use Bisher Zuhdi Work Phone: Start: 07-24-2020 Radex shoulder complete minimum 2 views Yara Kidd Work Phone: Start: 07-24-2020 Assay of osmolality urine Brijesh Primer Work Phone: Start: 07-24-2020 Assay of urine sodium Brijesh Primer Work Phone: Start: 07-24-2020 Chloride urine Brijesh Primer Work Phone: Start: 07-24-2020 Creatinine other source Brijesh Primer Work Phone: Start: 07-24-2020 Protein total xcpt refractometry urine Brijesh Primer Work Phone: Start: 07-24-2020 Urnls dip stick/tablet rgnt auto w/o microscopy Brijesh Primer Work Phone: Start: 07-24-2020 End: 07-24-2020 Gluc bld gluc mntr dev cleared fda spec home use Yara Kidd Work Phone: Start: 07-24-2020 Assay of troponin quantitative April Jesus ndlo Work Phone: Start: 07-24-2020 Assay of troponin quantitative April Ze ndlo Work Phone: Start: 07-24-2020 Blood count complete auto&auto difrntl wbc April Dixono Work Phone: Start: 07-24-2020 Blood count complete automated April Ze ndlo Work Phone: Start: 07-24-2020 Hemoglobin glycosylated a1c April Campbelldl o Work Phone: Start: 07-24-2020 Lipid panel April Campbelldlo Work Phone: Start: 07-23-2020 Gluc bld gluc mntr dev cleared fda spec home use Louisa Marina Work Phone: Start: 07-23-2020 Ecg routine ecg w/least 12 lds w/i&r April Herrera Work Phone: Start: 07-23-2020 Speech and language therapy regime Keon Herrera Work Phone: Start: 07-23-2020 Radiologic exam chest single view Miguel Jackson Work Phone: Start: 07-23-2020 Ct head/brain w/o contrast material Bubba R Luis Work Phone: Start: 07-23-2020 Assay of troponin quantitative Bubba R Luis Work Phone: Start: 07-23-2020 Blood count complete auto&auto difrntl wbc Bubba R Luis Work Phone: Start: 07-23-2020 Prothrombin time Bubba R Luis Work Phone: Start: 07-23-2020 Thromboplastin time partial plasma/whole blood Bubba R Luis Work Phone: Start: 07-23-2020 Ecg routine ecg w/least 12 lds w/i&r Bubba R Luis Work Phone: Start: 07-23-2020 Oxygen therapy [Minimum Data Set] Quenti n R Luis Work Phone: Start: 06-11-2020 End: 06-11-2020 Colonoscopy 3m Scanning Start: 06-11-2020 HM ENDOSCOPY REPORT 3m Scanning Start: 06-11-2020 Assay of magnesium Rohan Hoover Work Phone: Start: 06-11-2020 BASIC METABOLIC PANEL W/ REFLEX TO MG FOR LOW K Joeer D Kiko Work Phone: Start: 06-11-2020 Blood count complete auto&auto difrntl wbc Rohan Hoover Work Phone: Start: 06-10-2020 BASIC METABOLIC PANEL W/ REFLEX TO MG FOR LOW K Joeer D Kiko Work Phone: Start: 06-10-2020 Blood count complete auto&auto difrntl wbc Rohan Hoover Work Phone: Start: 06-09-2020 Blood count hemoglobin Dewayne Luna Work Phone: Start: 06-09-2020 Iadna-dna/rna gi pthgn multiplex probe tq - Marisel Fink Work Phone: Start: 06-09-2020 Inf agent det nucleic acid clostridium amp probe Marisel Fink Work Phone: Start: 06-09-2020 Blood count hemoglobin Rohan Hoover Work Phone: Start: 06-09-2020 BASIC METABOLIC PANEL W/ REFLEX TO MG FOR LOW K Rohan Hoover Work Phone: Start: 06-09-2020 Blood count complete auto&auto difrntl wbc Rohan Hoover Work Phone: Start: 06-08-2020 Blood typing serologic abo Rohan Hoover Work Phone: Start: 06-08-2020 Assay of lactate Marisel Fink Work Phone: Start: 06-08-2020 Assay of lipase Marisel Fink Work Phone: Start: 06-08-2020 Assay of magnesium Marisel Fink Work Phone: Start: 06-08-2020 Blood count complete auto&auto difrntl wbc Marisel Fink Work Phone: Start: 06-08-2020 Comprehensive metabolic panel Marisel Bar danae Work Phone: Start: 06-08-2020 Urnls dip stick/tablet rgnt auto w/o microscopy Marisel Barner Work Phone: Start: 06-08-2020 Ct abdomen & pelvis w/o contrast material Marisel Barner Work Phone: Start: 06-06-2020 Blood count complete auto&auto difrntl wbc Gin Susan Jackson Work Phone: Start: 06-05-2020 CT BIOPSY RENAL RIGHT Brijesh Primer Work Phone: Start: 06-05-2020 Assay of thyroid stimulating hormone tsh Mikey Bauman Work Phone: Start: 06-05-2020 Assay of thyroxine total Angela Jackson Work Phone: Start: 06-05-2020 Assay of triiodothyronine t3 free Angela Jackson Work Phone: Start: 06-05-2020 Blood count complete auto&auto difrntl wbc Angela Jackson Work Phone: Start: 06-05-2020 Complement antigen each component Uri perdomojessie Bauman Work Phone: Start: 06-05-2020 Hepatitis b surf antibody hbsab Ivonneadolphjeremi Bauman Work Phone: Start: 06-05-2020 Hepatitis c antibody Mikey Bauman Work Phone: Start: 06-05-2020 Iaad ia hepatitis b surface antigen Mikey Bauman Work Phone: Start: 06-05-2020 Thyrotropin [Units/volume] in Serum or Plasma Fiordaliza Cuellar DO Work Phone: Start: 06-04-2020 Prothrombin time Brijesh Quintanilla Work Phone: Start: 06-04-2020 ADD ON LAB TEST Angela Jackson Work Phone: Start: 06-04-2020 Ct abdomen & pelvis w/o contrast material Angela Jackson Work Phone: Start: 06-04-2020 Creatinine other source Angela Jackson Work Phone: Start: 06-04-2020 Protein total xcpt refractometry urine Angela Jackson Work Phone: Start: 06-04-2020 Urnls dip stick/tablet rgnt auto w/o microscopy Angela Jackson Work Phone: Start: 06-04-2020 Assay of lipase Angela Jackson Work Phone: Start: 06-04-2020 Blood count complete auto&auto difrntl wbc Angela Jackson Work Phone: Start: 06-04-2020 Hemoglobin glycosylated a1c Angela Jackson Work Phone: Start: 06-01-2020 Protein total xcpt refractometry urine Naima Rodriguez Work Phone: Start: 05-01-2020 Ct angiography chest w/contrast/noncontrast Marisel Deleon Work Phone: Start: 05-01-2020 Assay of ferritin Beto Hills Work Phone: Start: 05-01-2020 Blood count complete auto&auto difrntl wbc eBto Hills Work Phone: Start: 05-01-2020 C-reactive protein Beto Hills Work Phone: Start: 05-01-2020 Fibrin dgradj products d-dimer quantitative Beto Hills Work Phone: Start: 05-01-2020 Lactate dehydrogenase ldh Beto peters Work Phone: Start: 05-01-2020 Ecg routine ecg w/least 12 lds w/i&r Marisel Deleon Work Phone: Start: 04-30-2020 25 hydroxy includes fractions if performed Beto Hills Work Phone: Start: 04-30-2020 Assay of ferritin Beto Hills Work Phone: Start: 04-30-2020 Assay of troponin quantitative Beto savage Work Phone: Start: 04-30-2020 Blood count complete auto&auto difrntl wbc Beto Hills Work Phone: Start: 04-30-2020 C-reactive protein Beto Hills Work Phone: Start: 04-30-2020 Fibrin dgradj products d-dimer quantitative Beto Hills Work Phone: Start: 04-30-2020 Lactate dehydrogenase ldh Beto peters Work Phone: Start: 04-29-2020 Assay of ferritin Beto Hills Work Phone: Start: 04-29-2020 C-reactive protein Beto Hills Work Phone: Start: 04-29-2020 Fibrin dgradj products d-dimer quantitative Beto Hills Work Phone: Start: 04-29-2020 Lactate dehydrogenase ldh Beto peters Work Phone: Start: 04-29-2020 Procalcitonin (pct) Beto Hills Work Phone: Start: 04-29-2020 Culture bacterial blood aerobic w/id isolates Vanessa Miles Work Phone: Start: 04-29-2020 Assay of lactate Vanessa Miles Work Phone: Start: 04-29-2020 Assay of troponin quantitative Vanessa pritchett Work Phone: Start: 04-29-2020 Blood count complete auto&auto difrntl wbc Vanessa Miles Work Phone: Start: 04-29-2020 Comprehensive metabolic panel Vanessa green Work Phone: Start: 04-29-2020 CULTURE, BLOOD 1 Vanessa Miles Work Phone: Start: 04-29-2020 Natriuretic peptide Vanessa Miles Work Phone: Start: 04-29-2020 Radiologic exam chest single view Vanessa Miles Work Phone: Start: 04-29-2020 Ecg routine ecg w/least 12 lds w/i&r Vanessa Miles Work Phone: Start: 04-21-2020 Urnls dip stick/tablet rgnt auto w/o microscopy Julianne Kibe Work Phone: Start: 04-21-2020 ADD ON LAB TEST Julianne Kibe Work Phone: Start: 04-21-2020 Ecg routine ecg w/least 12 lds w/i&r Julianen Welch Work Phone: Start: 04-21-2020 Radiologic exam chest 2 views Julianne Lancaster e Work Phone: Start: 04-21-2020 Assay of magnesium Julianne Todbe Work Phone: Start: 04-21-2020 Assay of troponin quantitative Julianne Rojas be Work Phone: Start: 04-21-2020 Basic metabolic panel calcium total Julianne Welch Work Phone: Start: 04-21-2020 Blood count complete auto&auto difrntl wbc Julianne Welch Work Phone: Start: 03-30-2020 Ct angiography chest w/contrast/noncontrast Yadiel Cavanaugh Work Phone: Start: 03-30-2020 Dup-scan xtr veins complete bilateral study Yadiel Cavanaugh Work Phone: Start: 03-30-2020 Radiologic exam chest single view Lauro Cavanaugh Work Phone: Start: 03-30-2020 Assay of troponin quantitative Yadiel alvarez Work Phone: Start: 03-30-2020 Basic metabolic panel calcium total Yadiel Cavanaugh Work Phone: Start: 03-30-2020 Blood count complete auto&auto difrntl wbc Yadiel Cavanaugh Work Phone: Start: 03-30-2020 Fibrin dgradj products d-dimer quantitative Yadiel Cavanaugh Work Phone: Start: 03-30-2020 Natriuretic peptide Yadiel Cavanaugh Work Phone: Start: 03-30-2020 Ecg routine ecg w/least 12 lds w/i&r Yadiel Cavanaugh Work Phone: Start: 10-18-2019 Mri any jt upper extremity w/o contrast matrl Elin Orta Work Phone: H/O: surgery Status post panniculectomy Louisa Marina MD Work Phone: Plan of Treatment Date Care Activity Detail Author Start: 06-18-2034 DTaP/Tdap/Td Vaccines (3 - Td or Tdap) DTaP/Tdap/Td Vaccines (3 - Td or Tdap) [facility] Start: 06-11-2030 Screening for malignant neoplasm of colon [facility] Start: 06-30-2025 Creatinine measurement Creatinine Level [facility] Start: 06-30-2025 Diabetes: Estimated Glomerular Filtration Rate for Kidney Health Diabetes: Estimated Glomerular Filtration Rate for Kidney [facility] Start: 06-30-2025 Potassium measurement Potassium Level [facility] Start: 06-06-2025 End: 06-06-2025 Patient encounter procedure 06/06/2025 10:00 AM EST Office Visit [facility] [address] [place] [address] Saba Sam, GREG - FERRYBOAT OPERATOR HELPER [address] [facility] [address] [place], [place] [id number] [facility] Start: 05-28-2025 Creatinine measurement Creatinine Level [facility] Start: 05-28-2025 Diabetes: Estimated Glomerular Filtration Rate for Kidney Health Diabetes: Estimated Glomerular Filtration Rate for [facility] Start: 05-28-2025 Potassium measurement Potassium Level [facility] Start: 05-17-2025 Creatinine measurement Creatinine Level [facility] Start: 05-17-2025 Diabetes: Estimated Glomerular Filtration Rate for Kidney [facility] Diabetes: Estimated Glomerular Filtration Rate for [facility] Start: 05-17-2025 Potassium measurement Potassium Level [facility] Start: 05-03-2025 End: 05-03-2025 Patient encounter procedure 05/03/2025 8:45 AM EST [facility] [address] [place] [address] [place] [address] Antony Anderson MD [address] [place] [address] [address] [place] [address] [facility] Start: 03-20-2025 End: 03-20-2025 Patient encounter procedure 03/20/2025 11:15 AM EST Office Visit [facility] [place] [address] [facility] [address] [place] [phone] Antony Anderson MD [address] [facility] [address] [place] [phone] [facility] [place] Start: 03-13-2025 End: 03-13-2025 Patient encounter procedure 03/13/2025 8:15 AM EST Office Visit [facility] [address] [place] [phone] Elba Rojas DO [address] [place] [id number] [facility] Start: 03-02-2025 End: 03-02-2025 Patient encounter procedure 03/02/2025 1:20 PM EST Office Visit [facility] [address] [facility] [address] [place] [phone] Nahun Salazar DO [address] [facility] [address] [place] [address] [facility] [place] Start: 03-01-2025 End: 03-01-2025 Patient encounter procedure 03/01/2025 3:30 PM EST Office Visit [facility] [address] [place] [phone] Elba Rojas DO [address] [place], [place] [id number] [facility] Start: 02-08-2025 End: 02-03-2026 XR Hip - right 3 Views [facility] Work Phone: Comment on above: Expected: 02/08/2025, Expires: Once for 1 Occurrenc es starting 02/08/2025 until 02/08/2025 Start: 02-08-2025 End: 02-08-2025 Patient encounter procedure [facility] Start: 02-01-2025 End: 02-01-2026 Drug Monitoring Panel 7 w/Confirm ([facility]) Drug Monitoring Panel 7 w/Confirm ([facility]) Lab Routine Chronic prescription opiate use Encounter for therapeutic drug monitoring Expected: 02/01/2025 (Approximate), Expires: 02/01/2026 [facility] Work Phone: Comment on above: Expected: 02/01/2025 (Approximate), Expi res: 02/01/2026 Start: 01-20-2025 End: 01-20-2025 Patient encounter procedure 01/20/2025 1:45 PM EDT Office Visit [facility] [address] [place] [phone] Elba Rojas DO [address] [place], [place] [id number] [facility] Start: 01-18-2025 Depression Monitoring Depression Monitoring [facility] Start: 01-09-2025 End: 01-09-2025 Patient encounter procedure 01/09/2025 11:15 AM EDT [facility] [address] [facility] [address] [place] [phone] Antony Anderson MD [address] [facility] [address] [place], [place] [address] [facility] [place] Start: 12-12-2024 COVID-19 Vaccine ( season) COVID-19 Vaccine ( season) [facility] Start: 12-12-2024 Influenza vaccination [facility] Start: 12-08-2024 End: 12-08-2024 Patient encounter procedure 12/08/2024 2:20 PM EDT Office Visit [facility] [place] [address] [facility] [address] [place] [phone] Nahun Salazar DO [address] [facility] [address] [place] [address] [facility] [place] Start: 11-23-2024 End: 11-23-2025 MR Hip - right WO contrast MR hip right wo Imaging Routine Chronic prescription opiate use Right hip pain Expected: 11/23/2024, Expires: 11/23/2025 [facility] Work Phone: Comment on above: Expected: 11/23/2024, Expires: Start: 11-09-2024 End: 11-09-2024 Patient encounter procedure 11/09/2024 8:00 AM EDT Office Visit [facility] [place] [address] [place] [address] [place] [address] Antony Anderson MD [address] [facility] [address] [place] [phone] [facility] Start: 10-13-2024 End: 10-13-2024 Patient encounter procedure 10/13/2024 2:20 PM EDT Office Visit [facility] [place] [address] [facility] [address] [place] [phone] Nahun Salazar DO [address] [facility] [address] [place], [place] [phone] [facility] [place] Start: 10-11-2024 End: 10-11-2024 Patient encounter procedure 10/11/2024 9:00 AM EDT [facility] [place] [phone] Saba Sam, PLANT OPERATOR CONTROL ROOM OPERATOR - FERRYBOAT OPERATOR HELPER [address] [address] [facility] Start: 10-01-2024 Creatinine measurement Creatinine Level [facility] Start: 10-01-2024 Diabetes: Estimated Glomerular Filtration Rate for Kidney Health Diabetes: Estimated Glomerular Filtration Rate for [facility] Start: 10-01-2024 Echocardiography Echocardiogram [facility] Start: 10-01-2024 Potassium measurement Potassium Level [facility] Start: 09-30-2024 Thyroid stimulating hormone measurement TSH Level [facility] Start: 09-26-2024 End: 09-26-2025 C reactive protein [Mass/volume] in Serum or Plasma C-reactive protein Lab Routine S/P total right hip arthroplasty Primary osteoarthritis of right hip Right hip pain Expected: 09/26/2024 (Approximate), Expires: 09/26/2025 [facility] Work Phone: Comment on above: Expected: 09/26/2024 (Approximate), Expi res: 09/26/2025 Start: 09-26-2024 End: 09-26-2025 Erythrocyte sedimentation rate Sedimentation rate, automated Lab Routine S/P total right hip arthroplasty Primary osteoarthritis of right hip Right hip pain Expected: 09/26/2024 (Approximate), Expires: 09/26/2025 [facility] Comment on above: Expected: 09/26/2024 (Approximate), Expi res: 09/26/2025 Start: 09-24-2024 Creatinine measurement Creatinine Level [facility] Start: 09-24-2024 Diabetes: Estimated Glomerular Filtration Rate for Kidney Health Diabetes: Estimated Glomerular Filtration Rate for [facility] Start: 09-24-2024 Potassium measurement Potassium Level [facility] Start: 09-20-2024 End: 09-20-2024 Patient encounter procedure 09/20/2024 4:00 PM EDT Office Visit [facility] [place] [phone] Saba Sam, PLANT OPERATOR CONTROL ROOM OPERATOR - FERRYBOAT OPERATOR HELPER [address] [address] [facility] Start: 08-23-2024 End: 08-23-2024 Patient encounter procedure 08/23/2024 7:30 AM EDT Appointment [facility] [address] [facility] [address] [place] [phone] Wiliam Fernandez MD [address] [facility] [place] [address] [facility] Start: 08-20-2024 Creatinine measurement Creatinine Level [facility] Start: 08-20-2024 Diabetes: Estimated Glomerular Filtration Rate for Kidney Health Diabetes: Estimated Glomerular Filtration Rate for [facility] Start: 08-20-2024 Potassium measurement Potassium Level [facility] Start: 08-19-2024 Creatinine measurement Creatinine Level [facility] Start: 08-19-2024 Diabetes: Estimated Glomerular Filtration Rate for Kidney Health Diabetes: Estimated Glomerular Filtration Rate for [facility] Start: 08-19-2024 Potassium measurement Potassium Level [facility] Start: 08-17-2024 Creatinine measurement Creatinine Level [facility] Start: 08-17-2024 Potassium measurement Potassium Level [facility] Start: 08-03-2024 End: 08-03-2024 Patient encounter procedure 08/03/2024 8:45 AM EDT Appointment [facility] [address] [place] [address] Saba Sam APRN - FERRYBOAT OPERATOR HELPER [address] [address] [facility] [address] Start: 08-03-2024 Subsequent hospital visit by physician 08/03/2024 8:45 AM EDT Hospital Encounter [facility] [address] [place] [phone] Saba Sam, PLANT OPERATOR CONTROL ROOM OPERATOR - FERRYBOAT OPERATOR HELPER [address] [address] [facility] [address] Start: 07-27-2024 End: 07-27-2024 Patient encounter procedure 07/27/2024 8:40 AM EDT Office Visit [facility] [place] [address] [place] [address] [place] [address] Maria G Jarvis PA-C [address] [facility] [address] [place] [phone] [facility] Start: 07-19-2024 End: 07-19-2025 25-hydroxyvitamin D3 [Mass/volume] in Serum or Plasma Vitamin D Deficiency Screening (Vit D 25) Lab Routine Vitamin D deficiency Expected: 07/19/2024 (Approximate), Expires: 07/19/2025 [facility] Comment on above: Expected: 07/19/2024 (Approximate), Expi res: 07/19/2025 Start: 07-19-2024 End: 07-19-2025 Cobalamin (Vitamin B12) [Mass/volume] in Serum or Plasma Vitamin B12 Lab Routine Memory loss Expected: 07/19/2024 (Approximate), Expires: 07/19/2025 [facility] Work Phone: Comment on above: Expected: 07/19/2024 (Approximate), Expi res: 07/19/2025 Start: 07-19-2024 End: 07-19-2025 CT Head WO contrast CT head wo IV contrast Imaging Routine Memory loss Expected: 07/19/2024, Expires: 07/19/2025 [facility] Comment on above: Expected: 07/19/2024, Expires: Start: 07-19-2024 End: 07-19-2025 Folate [Mass/volume] in Serum or Plasma Folate Lab Routine Memory loss Expected: 07/19/2024 (Approximate), Expires: 07/19/2025 [facility] Comment on above: Expected: 07/19/2024 (Approximate), Expi res: 07/19/2025 Start: 07-19-2024 End: 07-19-2024 Patient encounter procedure 07/19/2024 10:00 AM EDT Office Visit [facility] [place] [address] [place] [phone] Saba Sam, GREG - FERRYBOAT OPERATOR HELPER [address] [facility] [address] [place] [address] [facility] Start: 07-06-2024 DTaP/Tdap/Td vaccine (2 - Td or Tdap) DTaP/Tdap/Td vaccine (2 - Td or Tdap) [facility] Start: 07-06-2024 DTaP/Tdap/Td vaccine (2 - Td) DTaP/Tdap/Td vaccine (2 - Td) [place] Start: 07-06-2024 DTaP/Tdap/Td Vaccines (2 - Td or Tdap) DTaP/Tdap/Td Vaccines (2 - Td or Tdap) [facility] Start: 06-29-2024 End: 06-29-2024 Patient encounter procedure 06/29/2024 9:40 AM EDT Office Visit [facility] [address] [place] [address] [place] [phone] Maria G Jarvis PA-C 1 [facility] [address] [place] [phone] [facility] Start: 05-27-2024 End: 05-27-2024 Admission to same day surgery center 05/27/2024 12:30 PM EST - 05/27/2024 2:30 PM EST Surgery [facility] MAIN OR [address] [place] [address] Antony Anderson MD 1 [facility] [address] [place] [address] RIGHT TOTAL HIP ARTHROPLASTY [70715 (CPT )] [facility] MA[facility] OR Comment on above: RIGHT TOTAL HIP ARTHROPLASTY [07852 (CPT )] Start: 05-27-2024 End: 05-27-2024 Anesthesia consultation 05/27/2024 12:30 PM EST Anesthesia Event [facility] MA[facility] OR [address] [place] [phone] Cesar Rivera PA-C [address] [place] [address] [facility] MAIN OR Start: 05-27-2024 End: 05-27-2024 Arthrp acetblr/prox fem prostc agrft/algrft [facility] Operating Room Start: 05-27-2024 Subsequent hospital visit by physician 05/27/2024 10:30 AM EST Hospital Encounter [facility] MAIN OR [address] [place] [address] Antony Anderson MD 1 [facility] [address] [place] [address] [facility] MAIN OR Start: 05-24-2024 End: 05-24-2024 Admission to establishment [facility] Pre-Admit Testing Start: 05-24-2024 End: 05-24-2024 ambulatory 05/24/2024 11:00 AM EST Education [facility] Pre-Admit Testing [address] [place] [address] Antony Anderson MD 1 [facility] [address] [place] [address] [facility] Pre-Admit Testing Start: 05-11-2024 End: 05-11-2025 CBC panel - Blood by Automated count CBC Lab Routine Right hip pain Expected: 05/11/2024 (Approximate), Expires: 05/11/2025 [facility] Work Phone: Comment on above: Expected: 05/11/2024 (Approximate), Expi res: 05/11/2025 Start: 05-11-2024 End: 05-11-2025 Comprehensive metabolic 1998 panel - Serum or Plasma Comprehensive metabolic panel Lab Routine Right hip pain Expected: 05/11/2024 (Approximate), Expires: 05/11/2025 [facility] Comment on above: Expected: 05/11/2024 (Approximate), Expi res: 05/11/2025 Start: 05-11-2024 End: 05-11-2025 CT Hip - right WO contrast CT hip right wo IV contrast Imaging Routine Right hip pain Expected: 05/11/2024, Expires: 05/11/2025 [facility] Comment on above: Expected: 05/11/2024, Expires: Start: 05-11-2024 End: 05-04-2025 XR Pelvis 1 or 2 Views [facility] [employer] Work Phone: Comment on above: Expected: 05/11/2024, Expires: Once for 1 Occurrenc es starting 05/11/2024 until 05/11/2024 Start: 05-11-2024 End: 05-11-2024 Patient encounter procedure 05/11/2024 11:15 AM EST Office Visit [facility] [place] [address] [place] [address] [place] [address] Antony Anderson MD 1 [facility] [address] [place] [address] [facility] Start: 04-13-2024 Medicare Advantage Annual Wellness Visit [facility] Annual Wellness Visit [facility] [employer] Start: 04-10-2024 Creatinine measurement Creatinine Level [facility] [employer] Start: 04-10-2024 Potassium measurement Potassium Level [facility] Start: 03-04-2024 Creatinine measurement Creatinine Level [facility] Start: 03-04-2024 Potassium measurement Potassium Level [facility] Start: 03-03-2024 Creatinine measurement Creatinine Level [facility] Start: 03-03-2024 Potassium measurement Potassium Level [facility] Start: 02-29-2024 Thyroid stimulating hormone measurement TSH Level [facility] Start: 02-22-2024 Creatinine measurement Creatinine Level [facility] Start: 02-22-2024 Potassium measurement Potassium Level [facility] Start: 02-16-2024 Creatinine measurement Creatinine Level [facility] Start: 02-16-2024 Potassium measurement Potassium Level [facility] Start: 02-04-2024 End: 02-04-2024 Patient encounter procedure [facility] Start: 02-02-2024 End: 02-02-2024 Patient encounter procedure 02/02/2024 9:00 AM EDT Office Visit [facility] Surgery [address] [place] [phone] Sherlyn Del Rio PA-C [address] [place] [address] [place] [address] [facility] Plastic & Reconstructive Surgery Start: 12-17-2023 End: 12-17-2023 Admission to same day surgery center 12/17/2023 10:30 AM EDT - 12/17/2023 12:30 PM EDT Surgery [facility] MAIN OR [address] [place] [phone] Cristo Coyne MD [address] [place] [address] CYSTOSCOPY [38973 (CPT )] [facility] Comment on above: CYSTOSCOPY [72102 (CPT )] Start: 12-17-2023 End: 12-17-2023 Anesthesia consultation 12/17/2023 10:30 AM EDT Anesthesia Event [facility] MAIN OR [address] [place] [phone] Indira Arrieta, PLANT OPERATOR CONTROL ROOM OPERATOR - FERRYBOAT OPERATOR HELPER [address] [place] [address] [facility] OR Start: 12-17-2023 End: 12-17-2023 Cystourethroscopy CYSTOSCOPY Benign prostatic hyperplasia with lower urinary tract symptoms 12/17/2023 10:30 AM EDT [facility] Operating Room Start: 12-17-2023 Subsequent hospital visit by physician [facility] OR Start: 12-17-2023 End: 12-17-2023 Trurl electrosurg rescj prostate bleed complete TRANSURETHRAL RESECTION OF PROSTATE Benign prostatic hyperplasia with lower urinary tract symptoms 12/17/2023 10:30 AM EDT [facility] Operating Room Start: 12-13-2023 COVID-19 Vaccine ( season) COVID-19 Vaccine ( season) [facility] Start: 12-13-2023 COVID-19 Vaccine ( season) COVID-19 Vaccine ( season) [facility] Start: 12-13-2023 Influenza vaccination [facility] Start: 12-10-2023 End: 12-10-2023 Anesthesia consultation 12/10/2023 11:59 PM EDT Anesthesia Event [facility] MA[facility] OR [address] [place] [phone] Indira Arrieta, PLANT OPERATOR CONTROL ROOM OPERATOR - FERRYBOAT OPERATOR HELPER [address] [place] [address] [facility] OR Start: 12-01-2023 End: 12-01-2023 Telemedicine consultation with patient 12/01/2023 11:45 AM EDT Telemedicine [facility] Urology [address] [facility] [address] [place] [phone] Cristo Coyne MD 201 [facility] 3 [place] [address] [facility] Start: 11-22-2023 End: 06-21-2024 25-hydroxyvitamin D3 [Mass/volume] in Serum or Plasma Vitamin D Deficiency Screening (Vit D 25) Lab Routine Hyperlipidemia associated with type 2 diabetes mellitus (HCC) (HCC) Essential hypertension Deficiency of multiple nutrient elements Vitamin D deficiency Expected: 11/22/2023, Expires: 06/21/2024 [facility] [employer] Comment on above: Expected: 11/22/2023, Expires: Start: 11-22-2023 End: 06-21-2024 CBC panel - Blood by Automated count CBC Lab Routine Hyperlipidemia associated with type 2 diabetes mellitus (HCC) (HCC) Essential hypertension Deficiency of multiple nutrient elements Expected: 11/22/2023, Expires: 06/21/2024 [facility] Comment on above: Expected: 11/22/2023, Expires: Start: 11-22-2023 End: 06-21-2024 Cobalamin (Vitamin B12) [Mass/volume] in Serum or Plasma Vitamin B12 Lab Routine Hyperlipidemia associated with type 2 diabetes mellitus (HCC) (HCC) Essential hypertension Deficiency of multiple nutrient elements Expected: 11/22/2023, Expires: 06/21/2024 [facility] Comment on above: Expected: 11/22/2023, Expires: Start: 11-22-2023 End: 06-21-2024 Comprehensive metabolic 1998 panel - Serum or Plasma Comprehensive metabolic panel Lab Routine Hyperlipidemia associated with type 2 diabetes mellitus (HCC) (HCC) Essential hypertension Deficiency of multiple nutrient elements Expected: 11/22/2023, Expires: 06/21/2024 [facility] Comment on above: Expected: 11/22/2023, Expires: Start: 11-22-2023 End: 06-21-2024 Ferritin [Mass/volume] in Serum or Plasma Ferritin Lab Routine Hyperlipidemia associated with type 2 diabetes mellitus (HCC) (HCC) Essential hypertension Deficiency of multiple nutrient elements Expected: 11/22/2023, Expires: 06/21/2024 [facility] Comment on above: Expected: 11/22/2023, Expires: Start: 11-22-2023 End: 06-21-2024 Folate [Mass/volume] in Serum or Plasma Folate Lab Routine Hyperlipidemia associated with type 2 diabetes mellitus (HCC) (HCC) Essential hypertension Deficiency of multiple nutrient elements Expected: 11/22/2023, Expires: 06/21/2024 [facility] Comment on above: Expected: 11/22/2023, Expires: Start: 11-22-2023 End: 06-21-2024 Iron and Iron binding capacity panel - Serum or Plasma Iron Lab Routine Hyperlipidemia associated with type 2 diabetes mellitus (HCC) (HCC) Essential hypertension Deficiency of multiple nutrient elements Expected: 11/22/2023, Expires: 06/21/2024 [facility] Comment on above: Expected: 11/22/2023, Expires: Start: 11-22-2023 End: 06-21-2024 Lipid 1996 panel - Serum or Plasma Lipid panel Lab Routine Hyperlipidemia associated with type 2 diabetes mellitus (HCC) (HCC) Essential hypertension Deficiency of multiple nutrient elements Expected: 11/22/2023, Expires: 06/21/2024 [facility] Comment on above: Expected: 11/22/2023, Expires: Start: 11-22-2023 End: 06-21-2024 Magnesium [Mass/volume] in Serum or Plasma Magnesium Lab Routine Hyperlipidemia associated with type 2 diabetes mellitus (HCC) (HCC) Essential hypertension Deficiency of multiple nutrient elements Expected: 11/22/2023, Expires: 06/21/2024 [facility] Comment on above: Expected: 11/22/2023, Expires: Start: 11-22-2023 End: 06-21-2024 Vitamin B1, whole blood Vitamin B1, whole blood Lab Routine Hyperlipidemia associated with type 2 diabetes mellitus (HCC) (HCC) Essential hypertension Deficiency of multiple nutrient elements Expected: 11/22/2023, Expires: 06/21/2024 [facility] Comment on above: Expected: 11/22/2023, Expires: Start: 11-22-2023 End: 06-21-2024 Zinc Zinc Lab Routine Hyperlipidemia associated with type 2 diabetes mellitus (HCC) (HCC) Essential hypertension Deficiency of multiple nutrient elements Expected: 11/22/2023, Expires: 06/21/2024 [facility] Work Phone: Comment on above: Expected: 11/22/2023, Expires: Start: 2023 Hepatitis B Vaccines (1 of 3 - Risk 3-dose series) Hepatitis B Vaccines (1 of 3 - Risk 3-dose series) [facility] Start: 2023 RSV Immunization aged 60 or older (1 - 1-dose 60+ series) RSV Immunization aged 60 or older (1 - 1-dose 60+ series) [facility] Start: 2023 RSV Immunization for Adults (1 - Risk 60-74 years 1-dose series) RSV Immunization for Adults (1 - Risk 60-74 years 1-dose series) [facility] Start: 10-06-2023 End: 10-06-2023 Admission to same day surgery center 10/06/2023 1:30 PM EDT Clinical Support [facility] Plastic & Reconstructive Surgery [address] [facility] [place] [address] [place] [phone] [facility] Start: 09-29-2023 End: 09-29-2023 Patient encounter procedure 09/29/2023 10:30 AM EDT Office Visit [facility]astic [facility] Re[facility]ive Surgery [address] [facility] [address] [place] [phone] Sherlyn Del Rio PA-C [address] [place] [address] [facility] Start: 09-28-2023 End: 09-28-2023 Telemedicine consultation with patient 09/28/2023 4:30 PM EDT Telemedicine [facility] Urology [address] [place] [phone] Cristo Coyne MD [address] [facility] [place] [address] [facility] Start: 09-23-2023 End: 09-23-2023 Admission to same day surgery center [facility] MAIN OR Comment on above: PANNICULECTOMY [64871 (CPT )] Start: 09-23-2023 End: 09-23-2023 Excision skin abd infraumbilical panniculectomy [facility] Operating Room Start: 09-23-2023 Subsequent hospital visit by physician [facility] MAIN OR Start: 09-22-2023 End: 09-22-2023 Patient encounter procedure 09/22/2023 9:10 AM EDT Consult [facility]astic [facility] Surgery [address] [place] [phone] Beto Gutierrez MD [address] [place] [address] [facility] Start: 09-16-2023 End: 09-16-2023 Admission to establishment 09/16/2023 2:30 PM EDT Pre-Admission Testing [facility] Pre-Admit Testing [address] [place] [phone] [facility] Pre-Admit Testing Start: 09-16-2023 End: 09-16-2023 Admission to same day surgery center 09/16/2023 10:30 AM EDT - 09/16/2023 11:30 AM EDT Surgery [facility] MAIN OR [address] [place] [phone] Cristo Coyne MD [address] [address] CYSTOSCOPY, RETROGRADE PYELOGRAM [43992 (CPT )] [facility] MAIN OR Comment on above: CYSTOSCOPY, RETROGRADE PYELOGRAM [71928 (CPT )] Start: 09-16-2023 End: 09-16-2023 Cysto bladder w/ureteral catheterization [facility] Operating Room Start: 09-16-2023 End: 09-16-2023 Cysto w/urtroscopy&/pyeloscopy dx [facility] Operating Room Start: 09-16-2023 Subsequent hospital visit by physician 09/16/2023 10:30 AM EDT Hospital Encounter [facility] MAIN OR [address] [place] [phone] Cristo Coyne MD [address] [address] [facility] MAIN OR Start: 09-15-2023 End: 09-15-2023 Admission to establishment 09/15/2023 1:00 PM EDT Pre-Admission Testing [facility] Pre-Admit Testing [address] [place] [phone] Cristo Coyne MD [address] [address] [place] Pre-Admit Testing Start: 09-08-2023 End: 09-08-2023 Patient encounter procedure 09/08/2023 9:00 AM EDT Office Visit [facility] Urology [address] [facility] [address] [place] [phone] Mariana Ball APRN - NP [address] [facility] [address] [place] [address] [facility] Start: 08-27-2023 End: 08-27-2023 Patient encounter procedure 08/27/2023 11:40 AM EDT Office Visit [facility] [address] [facility] [address] [place] [phone] Mariana Ball APRN - ESCROW MANAGER [address] [place] [address] [facility] Start: 08-10-2023 End: 08-10-2023 Patient encounter procedure 08/10/2023 2:20 PM EDT Procedure Visit [facility] [address] [place] [address] Cristo Coyne MD [address] [place] [address] [facility] Start: 08-10-2023 End: 08-10-2023 Patient encounter procedure 08/10/2023 8:40 AM EDT Office Visit [facility] [address] [place] [address] Deborah Jasso APRN - ESCROW MANAGER [address] [place] [address] [facility] Start: 08-03-2023 End: 08-03-2023 Patient encounter procedure 08/03/2023 9:00 AM EDT Office Visit [facility] [address] [place] [phone] Deb Kent APRN - FERRYBOAT OPERATOR HELPER [address] [place] [address] [facility] Start: 07-04-2023 Creatinine measurement Creatinine Level [facility] Start: 07-04-2023 Potassium measurement Potassium Level [facility] Start: 06-23-2023 End: 06-23-2023 Patient encounter procedure 06/23/2023 10:00 AM EDT Office Visit [facility] Plastic & Reconstructive Surgery [address] [place] [address] [place] [phone] Beto Gutierrez MD [address] [place] [address] [place] [address] [facility] Start: 06-22-2023 Screening for malignant neoplasm of colon Colon cancer screen colonoscopy [place], [place] Start: 06-22-2023 End: 06-22-2023 Patient encounter procedure [facility] Start: 06-10-2023 Creatinine measurement Creatinine Level [facility] Start: 06-10-2023 Potassium measurement Potassium Level [facility] Start: 05-25-2023 End: 05-25-2023 Patient encounter procedure 05/25/2023 10:20 AM EST Office Visit [facility] [address] [place] [phone] Deb Kent, PLANT OPERATOR CONTROL ROOM OPERATOR - FERRYBOAT OPERATOR HELPER [address] [place] [address] [facility] Start: 05-03-2023 End: 12-02-2023 25-hydroxyvitamin D3 [Mass/volume] in Serum or Plasma Vitamin D Deficiency Screening (Vit D 25) Lab Routine GERD without esophagitis Hyperlipidemia, unspecified hyperlipidemia type Hypothyroidism, unspecified type Morbid obesity with BMI of 40.0-44.9, adult (HCC) Deficiency of multiple nutrient elements Expected: 05/03/2023 (Approximate), Expires: 12/02/2023 [facility] [employer] Comment on above: Expected: 05/03/2023 (Approximate), Expi res: 12/02/2023 Start: 05-03-2023 End: 12-02-2023 CBC panel - Blood by Automated count CBC Lab Routine GERD without esophagitis Hyperlipidemia, unspecified hyperlipidemia type Hypothyroidism, unspecified type Morbid obesity with BMI of 40.0-44.9, adult (HCC) Deficiency of multiple nutrient elements Expected: 05/03/2023 (Approximate), Expires: 12/02/2023 [facility] [employer] Comment on above: Expected: 05/03/2023 (Approximate), Expi res: 12/02/2023 Start: 05-03-2023 End: 12-02-2023 Cobalamin (Vitamin B12) [Mass/volume] in Serum or Plasma Vitamin B12 Lab Routine GERD without esophagitis Hyperlipidemia, unspecified hyperlipidemia type Hypothyroidism, unspecified type Morbid obesity with BMI of 40.0-44.9, adult (HCC) Deficiency of multiple nutrient elements Expected: 05/03/2023 (Approximate), Expires: 12/02/2023 [facility] Comment on above: Expected: 05/03/2023 (Approximate), Expi res: 12/02/2023 Start: 05-03-2023 End: 12-02-2023 Comprehensive metabolic 1998 panel - Serum or Plasma Comprehensive metabolic panel Lab Routine GERD without esophagitis Hyperlipidemia, unspecified hyperlipidemia type Hypothyroidism, unspecified type Morbid obesity with BMI of 40.0-44.9, adult (HCC) Deficiency of multiple nutrient elements Expected: 05/03/2023 (Approximate), Expires: 12/02/2023 [facility] Comment on above: Expected: 05/03/2023 (Approximate), Expi res: 12/02/2023 Start: 05-03-2023 End: 12-02-2023 Ferritin [Mass/volume] in Serum or Plasma Ferritin Lab Routine GERD without esophagitis Hyperlipidemia, unspecified hyperlipidemia type Hypothyroidism, unspecified type Morbid obesity with BMI of 40.0-44.9, adult (HCC) Deficiency of multiple nutrient elements Expected: 05/03/2023 (Approximate), Expires: 12/02/2023 [facility] [employer] Comment on above: Expected: 05/03/2023 (Approximate), Expi res: 12/02/2023 Start: 05-03-2023 End: 12-02-2023 Folate [Mass/volume] in Serum or Plasma Folate Lab Routine GERD without esophagitis Hyperlipidemia, unspecified hyperlipidemia type Hypothyroidism, unspecified type Morbid obesity with BMI of 40.0-44.9, adult (HCC) Deficiency of multiple nutrient elements Expected: 05/03/2023 (Approximate), Expires: 12/02/2023 [facility] Comment on above: Expected: 05/03/2023 (Approximate), Expi res: 12/02/2023 Start: 05-03-2023 End: 12-02-2023 Iron and Iron binding capacity panel - Serum or Plasma Iron Lab Routine GERD without esophagitis Hyperlipidemia, unspecified hyperlipidemia type Hypothyroidism, unspecified type Morbid obesity with BMI of 40.0-44.9, adult (HCC) Deficiency of multiple nutrient elements Expected: 05/03/2023 (Approximate), Expires: 12/02/2023 [facility] Comment on above: Expected: 05/03/2023 (Approximate), Expi res: 12/02/2023 Start: 05-03-2023 End: 12-02-2023 Lipid 1996 panel - Serum or Plasma Lipid panel Lab Routine GERD without esophagitis Hyperlipidemia, unspecified hyperlipidemia type Hypothyroidism, unspecified type Morbid obesity with BMI of 40.0-44.9, adult (HCC) Deficiency of multiple nutrient elements Expected: 05/03/2023 (Approximate), Expires: 12/02/2023 [facility] Comment on above: Expected: 05/03/2023 (Approximate), Expi res: 12/02/2023 Start: 05-03-2023 End: 12-02-2023 Magnesium [Mass/volume] in Serum or Plasma Magnesium Lab Routine GERD without esophagitis Hyperlipidemia, unspecified hyperlipidemia type Hypothyroidism, unspecified type Morbid obesity with BMI of 40.0-44.9, adult (HCC) Deficiency of multiple nutrient elements Expected: 05/03/2023 (Approximate), Expires: 12/02/2023 [facility] Comment on above: Expected: 05/03/2023 (Approximate), Expi res: 12/02/2023 Start: 05-03-2023 End: 12-02-2023 Vitamin B1, whole blood Vitamin B1, whole blood Lab Routine GERD without esophagitis Hyperlipidemia, unspecified hyperlipidemia type Hypothyroidism, unspecified type Morbid obesity with BMI of 40.0-44.9, adult (HCC) Deficiency of multiple nutrient elements Expected: 05/03/2023 (Approximate), Expires: 12/02/2023 [facility] [employer] Comment on above: Expected: 05/03/2023 (Approximate), Expi res: 12/02/2023 Start: 05-03-2023 End: 12-02-2023 Zinc Zinc Lab Routine GERD without esophagitis Hyperlipidemia, unspecified hyperlipidemia type Hypothyroidism, unspecified type Morbid obesity with BMI of 40.0-44.9, adult (HCC) Deficiency of multiple nutrient elements Expected: 05/03/2023 (Approximate), Expires: 12/02/2023 [facility] [employer] [facility] Work Phone: Comment on above: Expected: 05/03/2023 (Approximate), Expi res: 12/02/2023 Start: 03-22-2023 Creatinine measurement Creatinine Level [facility] Start: 03-22-2023 Potassium measurement Potassium Level [facility] Start: 01-20-2023 End: 01-20-2023 Patient encounter procedure 01/20/2023 10:00 AM EDT Office Visit [facility] Plastic & Reconstructive Surgery [address] [place] [address] [place] [phone] Beto Gutierrez MD [address] [place] [address] [facility] Start: 12-12-2022 COVID-19 Vaccine () COVID-19 Vaccine () [facility] Start: 12-12-2022 Influenza vaccination Influenza Vaccine (#1) [facility] Start: 12-01-2022 End: 12-01-2022 Patient encounter procedure [facility] [place] Start: 11-20-2022 Hemoglobin [facility]c measurement [facility] Start: 09-27-2022 Hemoglobin A1c measurement A1C test (Diabetic or Prediabetic) [facility] Start: 09-27-2022 Urine screening for protein [facility] Start: 07-25-2022 End: 07-25-2022 Patient encounter procedure 07/25/2022 Office Visit Bariatrics Emma Lee PA [address] [place] [address] [facility] [place] Start: 07-18-2022 End: 07-18-2022 Patient encounter procedure 07/18/2022 Office Visit Weight Management Deborah Jasso APRN - NP [address] [place], [place] [id number] [facility] [place] Start: 07-16-2022 Creatinine measurement Creatinine [facility] Start: 07-16-2022 Hemoglobin A1c measurement A1C test (Diabetic or Prediabetic) [facility] Start: 07-16-2022 Lipid panel [facility] Start: 07-16-2022 Potassium [Moles/volume] in Serum or Plasma Potassium [facility] Start: 06-15-2022 Creatinine measurement Creatinine monitoring [facility] Start: 06-15-2022 Potassium monitoring Potassium monitoring [facility] Start: 06-14-2022 Hemoglobin A1c measurement A1C test (Diabetic or Prediabetic) [facility] Start: 06-13-2022 End: 06-13-2022 Patient encounter procedure 06/13/2022 Office Visit Bariatrics Priyank Guillory, PLANT OPERATOR CONTROL ROOM OPERATOR - FERRYBOAT OPERATOR HELPER [address] [place] [address] Bariatric [facility] Start: 03-24-2022 Hemoglobin A1c measurement Diabetes: Hemoglobin A1C [facility] Start: 03-19-2022 Depression Screen Depression Screen [facility] Start: 03-10-2022 End: 03-10-2022 Patient encounter procedure 03/10/2022 Office Visit Bariatrics Louisa Cabello DO [address] [place], [place] [id number] [facility] Start: 02-20-2022 Hemoglobin A1c measurement Diabetes: Hemoglobin A1C [facility] Start: 02-12-2022 Diabetic retinal exam Diabetic retinal exam [facility] Start: 02-12-2022 Urine screening for protein Diabetic microalbuminuria test [facility] Start: 02-11-2022 Creatinine measurement Creatinine monitoring [facility] Start: 02-11-2022 Potassium monitoring Potassium monitoring [facility] Start: 02-09-2022 Creatinine measurement Creatinine monitoring [facility] Work Phone: Start: 02-09-2022 Potassium monitoring Potassium monitoring [facility] Work Phone: Start: 01-21-2022 Pneumococcal 0-64 years Vaccine (2 - PPSV23 or PCV20) Pneumococcal 0-64 years Vaccine (2 - PPSV23 or PCV20) [facility] Start: 01-21-2022 Pneumococcal Vaccine: Pediatrics (0 to 5 Years) and At-Risk Patients (6 to 64 Years) (2 - PPSV23 if available, else PCV20) Pneumococcal Vaccine: Pediatrics (0 to 5 Years) and At-Risk Patients (6 to 64 Years) (2 - PPSV23 if available, else PCV20) [facility] Start: 01-14-2022 Creatinine measurement Creatinine monitoring [facility] Work Phone: Start: 01-14-2022 Potassium monitoring Potassium monitoring [facility] Work Phone: Start: 01-07-2022 Creatinine measurement Creatinine monitoring [facility] Work Phone: Start: 01-07-2022 Potassium monitoring Potassium monitoring [facility] Work Phone: Start: 01-06-2022 End: 01-06-2022 Patient encounter procedure 01/06/2022 Office Visit Bariatrics Priyank Guillory, PLANT OPERATOR CONTROL ROOM OPERATOR - FERRYBOAT OPERATOR HELPER [address] [place] [address] [facility] Start: 12-19-2021 End: 12-19-2021 Patient encounter procedure 12/19/2021 Office Visit Pulmonology Savanah Gomez MD [address] [place], [place] [id number] [facility] Start: 12-14-2021 DIABETES SCREEN DIABETES SCREEN [facility] Start: 12-12-2021 Influenza vaccination Flu vaccine (#1) [facility] Start: 12-09-2021 End: 12-09-2021 Patient encounter procedure 12/09/2021 Office Visit Bariatrics Louisa Cabello, DO [address], [address] [place] [address] [facility] Start: 12-03-2021 End: 12-03-2021 Patient encounter procedure 12/03/2021 Appointment General Surgery Louisa Cabello, DO [address], [address] [place] [address] [facility] Start: 11-26-2021 Creatinine measurement Creatinine monitoring [facility] Work Phone: Start: 11-26-2021 Potassium monitoring Potassium monitoring [facility] Work Phone: Start: 11-26-2021 End: 11-26-2021 Patient encounter procedure 11/26/2021 Appointment Pre-Admission Testing Louisa Cabello, DO [address], [address] [place] [address] [facility] Pre-Admit Testing Start: 11-25-2021 End: 11-25-2021 Telemedicine consultation with patient 11/25/2021 Telemedicine Weight Management Deborah Jasso APRN - NP [address] [place] [address] [facility] Start: 11-23-2021 Creatinine measurement Creatinine monitoring [facility] Work Phone: Start: 11-23-2021 Potassium monitoring Potassium monitoring [facility] Work Phone: Start: 11-16-2021 Creatinine measurement Creatinine monitoring [facility] Work Phone: Start: 11-16-2021 Hemoglobin A1c measurement A1C test (Diabetic or Prediabetic) [facility] Start: 11-16-2021 Lipid panel Lipid screen [facility] Start: 11-16-2021 Potassium monitoring Potassium monitoring [facility] Work Phone: Start: 11-13-2021 Potassium monitoring Potassium monitoring [facility] Work Phone: Start: 11-11-2021 Influenza vaccination Flu vaccine (#1) [facility] Start: 11-01-2021 Creatinine measurement Creatinine monitoring [facility] Work Phone: Start: 11-01-2021 Potassium monitoring Potassium monitoring [facility] Work Phone: Start: 10-31-2021 Creatinine measurement Creatinine monitoring [facility] Work Phone: Start: 10-31-2021 Potassium monitoring Potassium monitoring [facility] Work Phone: Start: 10-31-2021 Screening for malignant neoplasm of colon [facility] Start: 10-30-2021 Creatinine measurement Creatinine monitoring [facility] Work Phone: Start: 10-30-2021 Potassium monitoring Potassium monitoring [facility] Work Phone: Start: 10-26-2021 Creatinine measurement Creatinine monitoring [facility] Work Phone: Start: 10-26-2021 Potassium monitoring Potassium monitoring [facility] Work Phone: Start: 10-21-2021 End: 10-21-2021 Telemedicine consultation with patient 10/21/2021 Telemedicine Weight Management Deborah Jasso APRN - ESCROW MANAGER [address] [place] [address] [facility] Start: 10-19-2021 Creatinine measurement Creatinine monitoring [facility] Work Phone: Start: 10-19-2021 Potassium monitoring Potassium monitoring [facility] Work Phone: Start: 10-01-2021 Creatinine measurement Creatinine monitoring [facility] Work Phone: Start: 10-01-2021 Potassium monitoring Potassium monitoring [facility] Work Phone: Start: 09-23-2021 End: 09-23-2021 Telemedicine consultation with patient 09/23/2021 Telemedicine Weight Management Deborah Jasso APRN - ESCROW MANAGER [address] [place] [address] [facility] Start: 09-13-2021 Creatinine measurement Creatinine monitoring [facility] Work Phone: Start: 09-13-2021 Potassium monitoring Potassium monitoring [facility] Work Phone: Start: 08-26-2021 Creatinine measurement Creatinine monitoring [facility] Work Phone: Start: 08-26-2021 Potassium monitoring Potassium monitoring [facility] Work Phone: Start: 08-22-2021 Diabetes: Urine Albumin-Creatinine Ratio for Kidney Health Diabetes: Urine Albumin-Creatinine Ratio for Kidney Health [facility] Start: 08-22-2021 Diabetic microalbuminuria test Diabetic microalbuminuria test [facility] Start: 08-22-2021 Urine screening for protein [facility] Start: 08-20-2021 End: 08-20-2021 Patient encounter procedure 08/20/2021 Office Visit Pulmonology Savanah Gomez MD [address] [place] [address] [facility] Start: 08-19-2021 Creatinine measurement Creatinine monitoring [facility] Work Phone: Start: 08-19-2021 Potassium monitoring Potassium monitoring [facility] Work Phone: Start: 08-12-2021 End: 08-12-2021 Telemedicine consultation with patient 08/12/2021 Telemedicine Weight Management Deborah Jasso APRN - NP [address] [place], [place] [id number] [facility] Start: 08-09-2021 Prostate specific antigen measurement Prostate Specific Antigen (PSA) Screening or Monitoring [facility] Start: 07-25-2021 Creatinine measurement Creatinine monitoring [facility] Work Phone: Start: 07-25-2021 Potassium monitoring Potassium monitoring [facility] Work Phone: Start: 07-24-2021 HbA1c (Bld) [Mass fraction] A1C test (Diabetic or Prediabetic) [facility] Work Phone: Start: 07-24-2021 Hemoglobin A1c measurement A1C test (Diabetic or Prediabetic) [facility] Work Phone: Start: 07-24-2021 Lipid panel Lipid screen [facility] Work Phone: Start: 06-18-2021 End: 06-18-2021 Patient encounter procedure 06/18/2021 Office Visit Pulmonology Savanah Gomez MD [address] [place] [address] [facility] Start: 06-17-2021 End: 06-17-2021 Telemedicine consultation with patient 06/17/2021 Telemedicine Weight Management Deborah Jasso APRN - NP [address] [place] [address] [facility] Start: 06-11-2021 Creatinine measurement Creatinine monitoring [facility] Work Phone: Start: 06-11-2021 Potassium monitoring Potassium monitoring [facility] Work Phone: Start: 06-06-2021 Creatinine measurement Creatinine monitoring [facility] Work Phone: Start: 06-06-2021 Potassium monitoring Potassium monitoring [facility] Work Phone: Start: 06-05-2021 Thyroid stimulating hormone measurement TSH Level [facility] [employer] Start: 06-04-2021 HbA1c (Bld) [Mass fraction] A1C test (Diabetic or Prediabetic) [facility] Work Phone: Start: 05-01-2021 Creatinine measurement Creatinine monitoring [employer] [place] [place] Start: 05-01-2021 Potassium monitoring Potassium monitoring [employer] [place] Start: 04-21-2021 Creatinine measurement Creatinine monitoring [employer] [place] Start: 04-21-2021 Potassium monitoring Potassium monitoring [employer] [place] Start: 04-17-2021 End: 04-17-2021 Patient encounter procedure 04/17/2021 Office Visit Weight Management Nila Lopez MD [address] [address] [facility] Start: 03-29-2021 Shingles Vaccine (2 of 2) Shingles Vaccine (2 of 2) [facility] Start: 03-20-2021 End: 03-20-2021 Patient encounter procedure [facility] Start: 03-19-2021 End: 03-19-2021 Patient encounter procedure [facility] Start: 03-18-2021 Pneumococcal 0-64 years Vaccine (2 of 4 - PPSV23) Pneumococcal 0-64 years Vaccine (2 of 4 - PPSV23) [facility] Start: 03-18-2021 Pneumococcal Vaccine: 50+ Years (2 of 2 - PPSV23) Pneumococcal Vaccine: 50+ Years (2 of 2 - PPSV23) [facility] Start: 03-18-2021 Pneumococcal Vaccine: Pediatrics (0 to 5 Years) and At-Risk Patients (6 to 64 Years) (2 - PPSV23 if available, else PCV20) Pneumococcal Vaccine: Pediatrics (0 to 5 Years) and At-Risk Patients (6 to 64 Years) (2 - PPSV23 if available, else PCV20) [facility] Start: 12-06-2021 Pneumococcal Vaccine: Pediatrics (0 to 5 Years) and At-Risk Patients (6 to 64 Years) (2 - PPSV23 or PCV20) Pneumococcal Vaccine: Pediatrics (0 to 5 Years) and At-Risk Patients (6 to 64 Years) (2 - PPSV23 or PCV20) [facility] Start: 03-18-2021 Pneumococcal Vaccine: Pediatrics (0 to 5 Years) and At-Risk Patients (6 to 64 Years) (2 of 2 - PPSV23 or PCV20) Pneumococcal Vaccine: Pediatrics (0 to 5 Years) and At-Risk Patients (6 to 64 Years) (2 of 2 - PPSV23 or PCV20) [facility] Start: 03-11-2021 End: 03-11-2021 Patient encounter procedure 03/11/2021 Office Visit Neurosurgery Raghav Victoria MD [address] [place] [phone] [facility] Start: 03-05-2021 End: 03-05-2021 Patient encounter procedure 03/05/2021 Appointment Radiology Tonia Riggs, PLANT OPERATOR CONTROL ROOM OPERATOR - FERRYBOAT OPERATOR HELPER [address] [place] [address] [facility] [address] Start: 02-25-2021 COVID-19 Vaccine (3 - Booster for Moderna series) COVID-19 Vaccine (3 - Booster for Moderna series) [facility] Start: 02-25-2021 End: 02-25-2021 Patient encounter procedure 02/25/2021 Office Visit Cardiology Louisa Mckay MD [address] [place] [address] [phone] [facility] Start: 02-15-2021 End: 02-15-2021 Patient encounter procedure 02/15/2021 Office Visit Weight Management Nila Lopez MD [address] [place], [place] [id number] [facility] Start: 02-13-2021 End: 02-13-2021 Patient encounter procedure 02/13/2021 Office Visit Weight Management Nila Lopez MD [address] [place] [address] [phone] [facility] Start: 02-07-2021 End: 02-07-2021 Patient encounter procedure 02/07/2021 Office Visit Pulmonology Savanah Gomez MD [address] [place] [address] [phone] [facility] Start: 01-29-2021 COVID-19 Vaccine (4 - Booster for Moderna series) COVID-19 Vaccine (4 - Booster for Moderna series) [facility] Start: 01-29-2021 COVID-19 Vaccine (4 - Moderna series) COVID-19 Vaccine (4 - Moderna series) [facility] Start: 01-24-2021 End: 01-24-2021 Patient encounter procedure 01/24/2021 Appointment IP Unit Louisa Cabello DO [address] [place] [address] [phone] [facility] [address] Endoscopy Start: 12-26-2020 End: 12-26-2020 Patient encounter procedure 12/26/2020 Office Visit Weight Management Nila Lopez MD [address] [facility] [address] [place] [address] [phone] [facility] Start: 12-13-2020 End: 12-13-2020 Patient encounter procedure 12/13/2020 Office Visit Pulmonology Savanah Gmoez MD [address] [place] [address] [phone] [facility] Start: 12-12-2020 Influenza vaccination Flu vaccine (#1) [facility] Work Phone: Start: 12-11-2020 End: 12-11-2020 Patient encounter procedure 12/11/2020 Office Visit PulmonSavanah Chavez MD [address] [place], [place] [id number] [facility] Start: 12-03-2020 End: 12-03-2020 Patient encounter procedure 12/03/2020 Office Visit Neurosurgery Raghav Victoria MD [address] [place] [address] [facility] Start: 11-28-2020 End: 11-28-2020 Patient encounter procedure 11/28/2020 Office Visit Weight Management Nila Lopez MD [address] [place] [address] [phone] [facility] Start: 11-27-2020 End: 11-27-2020 Patient encounter procedure 11/27/2020 Office Visit Pulmonology Savanah Gomez MD [address] [place] [address] [phone] [facility] Start: 11-27-2020 End: 11-27-2020 Telemedicine consultation with patient 11/27/2020 Telemedicine Bariatrics Akanksha Rutledge, JESS, LD [address] [place] [address] [phone] [facility] Start: 11-22-2020 End: 11-22-2020 Patient encounter procedure 11/22/2020 Office Visit Urology Andrzej Whittaker MD [address] [place] [address] [phone] [facility] [place] Start: 11-19-2020 End: 11-19-2020 Patient encounter procedure 11/19/2020 Appointment General Surgery Andrzej Whittaker MD [address] [place] [address] [phone] [facility] Start: 11-13-2020 End: 11-13-2020 Patient encounter procedure 11/13/2020 Appointment Pre-Admission Testing Andrzej Whittaker MD [address] [place] [address] [phone] [facility] Pre-Admit Testing Start: 11-12-2020 End: 11-12-2020 Patient encounter procedure 11/12/2020 Office Visit Weight Management Kristine Venegas, , RD, LD [address] [place] [address] [phone] [facility] Start: 11-08-2020 End: 11-08-2020 Patient encounter procedure 11/08/2020 Appointment Pulmonary Function Testing [facility] Start: 11-01-2020 End: 11-01-2020 Patient encounter procedure 11/01/2020 Office Visit Pulmonology Savanah Gomez MD [address] [place] [address] [phone] [facility] [place] Start: 10-29-2020 End: 10-29-2020 Patient encounter procedure 10/29/2020 Office Visit Bariatrics Louisa Cabello DO [address] [place] [address] [phone] [facility] [place] Start: 09-29-2020 COVID-19 Vaccine (2 - Moderna 2-dose series) COVID-19 Vaccine (2 - Moderna 2-dose series) [facility] Work Phone: Start: 09-26-2020 End: 09-26-2020 Patient encounter procedure 09/26/2020 Office Visit Pain Management Quintin Valdes MD [address] [place] [address] [phone] [facility] Start: 09-18-2020 End: 09-18-2020 Patient encounter procedure 09/18/2020 Office Visit Pulmonology Savanah Gomez MD [address] [place], [place] [phone] [facility] [place] Start: 09-05-2020 End: 09-05-2020 Patient encounter procedure 09/05/2020 Office Visit Urology Kathy Aragon, PLANT OPERATOR CONTROL ROOM OPERATOR - FERRYBOAT OPERATOR HELPER [address] [place] [address] [phone] [facility] [place] Start: 08-23-2020 End: 08-23-2020 Office Visit 08/23/2020 Office Visit Neurosurgery Raghav Victoria MD [address] [place] [phone] [facility] Start: 08-22-2020 End: 08-22-2020 Patient encounter procedure 08/22/2020 Office Visit Pain Management Quintin Valdes MD [address] [place], [place] [address] [facility] Start: 08-20-2020 End: 08-20-2020 Patient encounter procedure 08/20/2020 Appointment General Surgery Andrzej Whittaker MD [address] [place] [address] [phone] [facility] General Surgery Start: 08-20-2020 Subsequent hospital visit by physician 08/20/2020 Hospital Encounter General Surgery Andrzej Whittaker MD [address] [place] [address] [phone] [facility] General Surgery Start: 08-17-2020 End: 08-17-2020 Office Visit 08/17/2020 Office Visit Pain Management Quintin Valdes MD [address] [place] [address] [phone] [facility] Start: 01-30-2020 Lipid panel Lipid screen [place], [place] Start: 12-13-2019 Influenza vaccination [facility] Start: 06-06-2019 Creatinine measurement Creatinine monitoring [place], [place] Start: 06-06-2019 Potassium monitoring Potassium monitoring [place] Start: 10-09-2018 PROSTATE CANCER SCREENING DISCUSSION PROSTATE CANCER SCREENING DISCUSSION [facility] Start: 04-21-2016 Diabetes screen Diabetes screen [place], [place] Start: 10-09-2013 Shingles Vaccine (1 of 2) Shingles Vaccine (1 of 2) [place] Start: 10-09-2013 SHINGRIX VACCINE (1 of 2) SHINGRIX VACCINE (1 of 2) [facility] Start: 10-09-2013 Tuberculosis screening COLORECTAL CANCER SCREENING,SEE MODIFIER [facility] Start: 10-09-2008 Screening for malignant neoplasm of colon [facility] Start: 10-09-1998 LIPID SCREEN LIPID SCREEN [facility] Start: 10-09-1982 Hepatitis A Vaccines (1 of 2 - Risk 2-dose series) Hepatitis A Vaccines (1 of 2 - Risk 2-dose series) [facility] Start: 10-09-1982 Hepatitis B vaccine (1 of 3 - Risk 3-dose series) Hepatitis B vaccine (1 of 3 - Risk 3-dose series) [facility] Start: 10-09-1982 Hepatitis B Vaccines (1 of 3 - 19+ 3-dose series) Hepatitis B Vaccines (1 of 3 - 19+ 3-dose series) [facility] Start: 10-09-1982 Urine microalbumin profile DTAP,TDAP,TD (1 - Tdap) [facility] Start: 10-09-1981 Diabetic retinal exam Diabetic retinal exam [facility] Start: 10-09-1981 HEPATITIS C SCREENING HEPATITIS C SCREENING [facility] Start: 10-09-1981 HIV SCREENING HIV SCREENING [facility] Start: 1979 COVID-19 Vaccine (1) COVID-19 Vaccine (1) [facility] Work Phone: Start: 10-09-1978 HIV screening HIV screen [facility] Start: 1975 COVID-19 Vaccine (1) COVID-19 Vaccine (1) [facility] Start: 1975 Depression Monitoring Depression Monitoring [facility] Start: 1975 Depression Screening Depression Screening [facility] Start: 10-09-1973 Diabetic foot examination [facility] Start: 10-09-1973 Diabetic retinal exam Diabetic retinal exam [facility] Start: 10-09-1973 Glaucoma screening Diabetes: Retinopathy Screening [facility] Start: 10-09-1973 Preventive dental service Diabetes: Dental Exam [facility] Start: 10-09-1969 Pneumococcal 0-64 years Vaccine (1 of 1 - PPSV23) Pneumococcal 0-64 years Vaccine (1 of 1 - PPSV23) [place] Start: 10-09-1969 Pneumococcal 0-64 years Vaccine (1 of 3 - PCV13) Pneumococcal 0-64 years Vaccine (1 of 3 - PCV13) [facility] Work Phone: Start: 10-09-1969 Pneumococcal 0-64 years Vaccine (1 of 4 - PCV13) Pneumococcal 0-64 years Vaccine (1 of 4 - PCV13) [facility] Work Phone: Start: 10-09-1968 COVID-19 Vaccine (1) COVID-19 Vaccine (1) [facility] Start: 10-09-1964 Hepatitis A Vaccines (1 of 2 - Risk 2-dose series) Hepatitis A Vaccines (1 of 2 - Risk 2-dose series) [facility] Start: 10-09-1964 MMR Vaccines (1 of 1 - Standard series) MMR Vaccines (1 of 1 - Standard series) [facility] Start: 04-10-1964 COVID-19 Vaccine (#1) COVID-19 Vaccine (#1) [facility] Start: 1963 Echocardiography Echocardiogram [facility] Start: 1963 Hepatitis B Vaccines (1 of 3 - 3-dose series) Hepatitis B Vaccines (1 of 3 - 3-dose series) [facility] Start: 1963 Hepatitis C screening Hepatitis C screen [place], [place] Start: 1963 HIV screening HIV Screening [facility] Start: 1963 Medicare Annual Wellness (AWV) Medicare Annual Wellness (AWV) [facility] Start: 1963 Screening for malignant neoplasm of colon [facility] Start: 1963 Thyroid stimulating hormone measurement TSH Level [facility] End: 06-05-2020 Anti-Neutrophilic Cytoplasmic Antibody Anti-Neutrophilic Cytoplasmic Antibody Lab Routine Tomorrow AM for 1 Occurrences starting 06/05/2020 until 06/05/2020 [facility] Work Phone: Comment on above: Tomorrow AM for 1 Occurrences starting 0 06/05/2020 until 06/05/2020 Anti-Neutrophilic Cytoplasmic Antibody Anti-Neutrophilic Cytoplasmic Antibody Lab Routine 06/05/2020 3:44 AM EST [facility] Work Phone: End: 06-11-2020 Assay of nephelometry each analyte jignesh Free [employer] Light Chains Plus Ratio Lab Routine One Time for 1 Occurrences starting 06/11/2020 until 06/11/2020 [facility] Work Phone: Comment on above: One Time for 1 Occurrences starting 04/2020 until 06/11/2020 Assay of nephelometr y each analyte jignesh Free K&L Light Chains Plus Ratio Lab Routine 06/11/2020 7:40 PM EST [facility] Work Phone: [employer] Overnight [employer] P Respiratory Care Routine QHS until discontinued starting 04/29/2020 [facility], [place] Comment on above: QHS until discontinued starting 04/29/19 End: 08-17-2023 Bacteria identified in Urine by Culture [facility] Work Phone: Comment on above: Once (Lab) for 1 Occurrences starting until 08/17/2023 End: 08-21-2023 Bacteria identified in Urine by Culture [facility] Work Phone: Comment on above: Once (Lab) for 1 Occurrences starting until 08/21/2023 End: 12-06-2021 Basic metabolic 2000 panel - Serum or Plasma Basic Metabolic Panel Lab Routine Daily for 3 Days starting 12/04/2021 until 12/06/2021, 2 completed [facility] Work Phone: Comment on above: Daily for 3 Days starting 12/04/2021 unt il 12/06/2021, 2 completed Basic Metabolic Pane l w/ Reflex to MG [employer] Work Phone: Comment on above: Daily until discontinued starting 2020, 3 completed Daily until disconti nued starting 08/22/2020, 5 completed Daily until disconti nued starting 09/13/2020, 1 completed End: 01-08-2022 Basic Metabolic Panel w/ Reflex to MG Basic Metabolic Panel w/ Reflex to MG Lab Routine Daily for 3 Weeks starting 12/19/2021 until 01/08/2022, 1 completed [employer] Work Phone: Comment on above: Daily for 3 Weeks starting 12/19/2021 un til 01/08/2022, 1 completed End: 08-01-2020 CBC CBC Lab Routine Daily for 9 Occurrences starting 07/24/2020 until 08/01/2020, 2 completed [employer] Work Phone: Comment on above: Daily for 9 Occurrences starting 021 until 08/01/2020, 2 completed CBC auto differential [employer] Comment on above: Tomorrow AM until discontinued starting 06/05/2020, 2 completed Daily until disconti nued starting 06/09/2020, 3 completed Daily until disconti nued starting 04/30/2020, 2 completed Daily until disconti nued starting 08/22/2020, 5 completed Daily until disconti nued starting 09/12/2020, 2 completed Daily until disconti nued starting 09/30/2020, 2 completed End: 12-06-2021 CBC W Auto Differential panel - Blood CBC auto differential Lab Routine Daily for 3 Days starting 12/04/2021 until 12/06/2021, 2 completed [employer] Work Phone: Comment on above: Daily for 3 Days starting 12/04/2021 unt il 12/06/2021, 2 completed End: 01-08-2022 CBC W Auto Differential panel - Blood CBC auto differential Lab Routine Daily for 3 Weeks starting 12/19/2021 until 01/08/2022, 1 completed [employer] Work Phone: Comment on above: Daily for 3 Weeks starting 12/19/2021 un til 01/08/2022, 1 completed Comprehensive Metabo lic Panel w/ Reflex to MG [employer] Comment on above: Tomorrow AM until discontinued starting 06/05/2020, 2 completed Daily until disconti nued starting 04/30/2020, 2 completed Daily until disconti nued starting 09/30/2020, 2 completed End: 08-01-2020 Comprehensive Metabolic Panel w/ Reflex to MG Comprehensive Metabolic Panel w/ Reflex to MG Lab Routine Daily for 9 Occurrences starting 07/24/2020 until 08/01/2020, 2 completed [facility] Work Phone: Comment on above: Daily for 9 Occurrences starting 021 until 08/01/2020, 2 completed End: 06-04-2020 Creatinine (U) [Mass/Vol] Creatinine, Random Urine Lab Routine One Time for 1 Occurrences starting 06/04/2020 until 06/04/2020 [employer] Work Phone: Comment on above: One Time for 1 Occurrences starting 05/15 until 06/04/2020 End: 11-19-2020 Creatinine [Mass/volume] in Serum or Plasma Creatinine, serum Lab STAT One Time for 1 Occurrences starting 11/19/2020 until 11/19/2020 [facility] Work Phone: Comment on above: One Time for 1 Occurrences starting 12/2020 until 11/19/2020 End: 08-22-2020 Creatinine [Mass/volume] in Urine Creatinine, Random Urine Lab Routine One Time for 1 Occurrences starting 08/22/2020 until 08/22/2020 [employer] Work Phone: Comment on above: One Time for 1 Occurrences starting 08/11 until 08/22/2020 CRP [Mass/Vol] C-Reactive Prote in Lab Routine Daily until discontinued starting 04/29/2020, 3 completed [facility] Comment on above: Daily until discontinued starting 2020, 3 completed Culture, Blood 1 Culture, Blood 1 Microbiology STAT 04/29/2020 12:23 [facility] [place] Culture, Blood 2 Culture, Blood 2 Microbiology STAT 04/29/2020 1:00 PM [facility] [place] End: 04-29-2020 Culture, Respiratory, Sputum Culture, Respiratory, Sputum Microbiology Routine One Time for 1 Occurrences starting 04/29/2020 until 04/29/2020 [place], [place] Comment on above: One Time for 1 Occurrences starting 04/13 until 04/29/2020 End: 08-14-2020 Culture, Urine Culture, Urine Microbiology Routine Elective surgery 1 Occurrences starting 08/14/2020 until 08/14/2020 [employer] Work Phone: Comment on above: 1 Occurrences starting 08/14/2020 until 08/14/2020 End: 10-19-2020 Culture, Urine Culture, Urine Microbiology Routine Once for 1 Occurrences starting 10/19/2020 until 10/19/2020 [facility] Work Phone: Comment on above: Once for 1 Occurrences starting 10/20/19 21 until 10/19/2020 Culture, Urine [facility] Work Phone: End: 11-01-2020 Culture, Urine Culture, Urine Microbiology STAT One Time for 1 Occurrences starting 11/01/2020 until 11/01/2020 [facility] Work Phone: Comment on above: One Time for 1 Occurrences starting 10/12 until 11/01/2020 Cystourethroscopy CYSTOSCOPY Yosvany ign prostatic hyperplasia with lower urinary tract symptoms [facility] Operating [facility] D-Dimer, Quantitative D-Dimer, Q uantitative Lab Routine Daily until discontinued starting 04/29/2020, 3 completed [employer] Comment on above: Daily until discontinued starting 2020, 3 completed EKG 12 Lead [employer] [place] EKG 12 Lead EKG 12 Lead ECG Routine 11/20/2021 8:38 AM EDT [facility] Work Phone: Ferritin [Mass/Vol] Ferritin Lab Routine Daily until discontinued starting 04/29/2020, 3 completed [employer], [place] Comment on above: Daily until discontinued starting 2020, 3 completed End: 10-26-2020 FL RETROGRADE PYELOGRAM W WO KUB FL RETROGRADE PYELOGRAM W WO KUB Imaging Routine Once for 1 Occurrences starting 10/26/2020 until 10/26/2020 [facility] Work Phone: Comment on above: Once for 1 Occurrences starting 10/27/19 21 until 10/26/2020 FL RETROGRADE PYELOG ISHA W WO KUB FL RETROGRADE PYELOGRAM W WO KUB Imaging Routine 10/26/2020 11:24 AM EDT [facility] Work Phone: End: 06-05-2020 Free T3 [Mass/Vol] T3, Free Lab Add-On One Time for 1 Occurrences starting 06/05/2020 until 06/05/2020 [facility] Work Phone: Comment on above: One Time for 1 Occurrences starting 05/15 until 06/05/2020 End: 06-05-2020 Glomerular Basement Membrane (GBM) Antibody IgG Glomerular Basement Membrane (GBM) Antibody IgG Lab Routine Tomorrow AM for 1 Occurrences starting 06/05/2020 until 06/05/2020 [employer] Work Phone: Comment on above: Tomorrow AM for 1 Occurrences starting 0 06/05/2020 until 06/05/2020 Glomerular Basement Membrane (GBM) Antibody IgG Glomerular Basement Membrane (GBM) Antibody IgG Lab Routine 06/05/2020 3:44 AM EST [facility] Work Phone: End: 02-09-2021 Glucose [Mass/volume] in Serum or Plasma POCT GLUCOSE Point of Care Testing Routine One Time for 1 Occurrences starting 02/09/2021 until 02/09/2021 [employer] Work Phone: Comment on above: One Time for 1 Occurrences starting 01/13 until 02/09/2021 End: 06-04-2020 HbA1c (Bld) [Mass fraction] Hemoglobin A1C Lab Routine One Time for 1 Occurrences starting 06/04/2020 until 06/04/2020 [facility] Work Phone: Comment on above: One Time for 1 Occurrences starting 05/15 until 06/04/2020 End: 02-11-2021 Hemogram (CBC) w/Auto Diff Hemogram (CBC) w/Auto Diff Lab STAT One Time for 1 Occurrences starting 02/11/2021 until 02/11/2021 [employer] Work Phone: Comment on above: One Time for 1 Occurrences starting 04/2020 until 02/11/2021 End: 05-01-2020 Home O2 eval (desaturation screen) Home O2 eval (desaturation screen) Respiratory Care Routine One Time for 1 Occurrences starting 05/01/2020 until 05/01/2020 [facility], [place] Comment on above: One Time for 1 Occurrences starting 04/13 until 05/01/2020 End: 10-26-2020 Intermittent pulse oximetry Pulse Oximetry Spot Check Respiratory Care Routine One Time for 1 Occurrences starting 10/26/2020 until 10/26/2020 [facility] Work Phone: Comment on above: One Time for 1 Occurrences starting 10/11 until 10/26/2020 End: 11-19-2020 Intermittent pulse oximetry Pulse Oximetry Spot Check Respiratory Care Routine One Time for 1 Occurrences starting 11/19/2020 until 11/19/2020 [employer] Work Phone: Comment on above: One Time for 1 Occurrences starting 12/2020 until 11/19/2020 Intermittent pulse oximetry Pulse Oximetry Spot Check Respiratory Care Routine Every 4hr until discontinued starting 12/18/2021 [employer] Work Phone: Comment on above: Every 4hr until discontinued starting LDH [Catalytic activity/Vol] Lactate Dehydrogenase Lab Routine Daily until discontinued starting 04/29/2020, [address] [facility] Comment on above: Daily until discontinued starting 2020, 3 completed End: 04-29-2020 Legionella antigen, urine Legionella antigen, urine Microbiology Routine One Time for 1 Occurrences starting 04/29/2020 until 04/29/2020 [employer] Comment on above: One Time for 1 Occurrences starting 04/13 until 04/29/2020 End: 06-04-2020 Lipase Lipase Lab Routine One Time for 1 Occurrences starting 06/04/2020 until 06/04/2020 [employer] Work Phone: Comment on above: One Time for 1 Occurrences starting 05/15 until 06/04/2020 End: 01-08-2022 Magnesium [Mass/volume] in Serum or Plasma Magnesium Lab Routine Daily for 3 Weeks starting 12/19/2021 until 01/08/2022, 1 completed [employer] Work Phone: Comment on above: Daily for 3 Weeks starting 12/19/2021 un til 01/08/2022, 1 completed MDI Treatment MDI Treatment Respiratory Care Routine Every 6hr As Needed until discontinued starting 07/25/2020 [employer] Work Phone: Comment on above: Every 6hr As Needed until discontinued s tarting 07/25/2020 End: 04-29-2020 Microscopic observation Gram stain Nom (Unsp spec) Gram Stain Microbiology Routine Once for 1 Occurrences starting 04/29/2020 until 04/29/2020 [facility] Comment on above: Once for 1 Occurrences starting 04/29/19 21 until 04/29/2020 End: 12-07-2024 MR Hip - right WO contrast [employer] Work Phone: Comment on above: Once for 1 Occurrences starting 12/08/19 25 until 12/07/2024 Nasal Cannula Oxygen [facility] Work Phone: Comment on above: As Needed until discontinued starting As Needed until disc ontinued starting 11/19/2020 Nebulizer therapy [facility] Work Phone: Comment on above: 4X Daily until discontinued starting Every 4hr As Needed until discontinued starting 08/22/2020 0600, 1000, 1400, 18 00, 2200 until discontinued starting 09/11/2020 Nonrebreather mask oxygen [facility] Work Phone: Comment on above: As Needed until discontinued starting As Needed until disc ontinued starting 11/19/2020 End: 06-05-2020 Nuclear Ab IF (S) [Titer] VAIBHAV Lab Routine Tomorrow AM for 1 Occurrences starting 06/05/2020 until 06/05/2020 [facility] Work Phone: Comment on above: Tomorrow AM for 1 Occurrences starting 0 06/05/2020 until 06/05/2020 Nuclear Ab IF (S) [Titer] VAIBHAV La b Routine 06/05/2020 3:44 AM EST [facility] Work Phone: OUTSIDE PROCEDURE SCAN OUTSIDE P ROCEDURE SCAN Procedures Ordered: 02/26/2024 [facility] [employer] [facility] Comment on above: Ordered: 02/26/2024 OUTSIDE PROCEDURE SCAN OUTSIDE P ROCEDURE SCAN Procedures Ordered: 04/01/2024 [facility] [employer] [facility] Comment on above: Ordered: 04/01/2024 Oxygen therapy [[facility] Data Set] [facility] Comment on above: Daily until discontinued starting 2020 Daily until disconti nued starting 06/08/2020 Daily until disconti nued starting 04/29/2020 Daily until disconti nued starting 07/23/2020, 2 completed Daily until disconti nued starting 07/23/2020 Daily until disconti nued starting 08/22/2020 Daily until disconti nued starting 09/11/2020 Daily until disconti nued starting 09/29/2020 Daily until disconti nued starting 10/26/2020 As Needed until disc ontinued starting 10/26/2020 As Needed until disc ontinued starting 11/19/2020 Daily until disconti nued starting 11/19/2020 Oxygen therapy [Mini mum Data Set] Initiate Oxygen Therapy Protocol Respiratory Care Routine As Needed until discontinued starting 12/04/2021 [facility] Work Phone: Comment on above: As Needed until discontinued starting Oxygen therapy [M[employer] Data Set] Initiate Oxygen Therapy Protocol Respiratory Care Routine As Needed until discontinued starting 12/18/2021 [facility] Work Phone: Comment on above: As Needed until discontinued starting End: 01-08-2022 Phosphate [Mass/volume] in Serum or Plasma Phosphorus Lab Routine Daily for 3 Weeks starting 12/19/2021 until 01/08/2022, 1 completed [employer] Work Phone: Comment on above: Daily for 3 Weeks starting 12/19/2021 un til 01/08/2022, 1 completed End: 06-11-2020 Phospholipase A2 Receptor (PLA2R) Ab IgG, Reflex Titer Phospholipase A2 Receptor (PLA2R) Ab IgG, Reflex Titer Lab Routine One Time for 1 Occurrences starting 06/11/2020 until 06/11/2020 [facility] Work Phone: Comment on above: One Time for 1 Occurrences starting 0304/2020 until 06/11/2020 Phospholipase A2 Rec eptor (PLA2R) Ab IgG, Reflex Titer Phospholipase A2 Receptor (PLA2R) Ab IgG, Reflex Titer Lab Routine 06/11/2020 7:40 PM EST [facility] Work Phone: End: 07-23-2020 POCT Glucose POCT Glucose Point of Care Testing STAT One Time for 1 Occurrences starting 07/23/2020 until 07/23/2020 [facility] Work Phone: Comment on above: One Time for 1 Occurrences starting 07/12 until 07/23/2020 POCT Glucose [facility] Work Phone: Comment on above: As Needed until discontinued starting As Needed until disc ontinued starting 10/26/2020 As Needed until disc ontinued starting 11/19/2020 End: 11-19-2020 Potassium w/ Reflex to Magnesium Potassium w/ Reflex to Magnesium Lab Routine One Time for 1 Occurrences starting 11/19/2020 until 11/19/2020 [facility] Work Phone: Comment on above: One Time for 1 Occurrences starting 12/2020 until 11/19/2020 End: 10-26-2020 , urine POCT , urine POCT Point of Care Testing Routine One Time for 1 Occurrences starting 10/26/2020 until 10/26/2020 [facility] Work Phone: Comment on above: One Time for 1 Occurrences starting 10/11 until 10/26/2020 End: 11-19-2020 , urine POCT , urine POCT Point of Care Testing Routine One Time for 1 Occurrences starting 11/19/2020 until 11/19/2020 [facility] Work Phone: Comment on above: One Time for 1 Occurrences starting 12/2020 until 11/19/2020 End: 06-04-2020 Protein, urine, random Protein, urine, random Lab Routine One Time for 1 Occurrences starting 06/04/2020 until 06/04/2020 [facility] Work Phone: Comment on above: One Time for 1 Occurrences starting 05/15 until 06/04/2020 End: 08-22-2020 Protein, urine, random Protein, urine, random Lab Routine One Time for 1 Occurrences starting 08/22/2020 until 08/22/2020 [facility] Work Phone: Comment on above: One Time for 1 Occurrences starting 08/11 until 08/22/2020 End: 10-26-2020 Protime-INR Protime-INR Lab STAT One Time for 1 Occurrences starting 10/26/2020 until 10/26/2020 [facility] Work Phone: Comment on above: One Time for 1 Occurrences starting 10/11 until 10/26/2020 End: 11-19-2020 Protime-INR Protime-INR Lab STAT One Time for 1 Occurrences starting 11/19/2020 until 11/19/2020 [facility] Work Phone: Comment on above: One Time for 1 Occurrences starting 12/2020 until 11/19/2020 End: 09-19-2021 Radiologic examination knee 1/2 views [facility] Work Phone: Comment on above: 1 Occurrences starting 09/19/2021 until 09/19/2021 End: 04-21-2020 Respiratory Panel, Molecular, with COVID-19 (Restricted: peds pts or suitable admitted adults) Respiratory Panel, Molecular, with COVID-19 (Restricted: peds pts or suitable admitted adults) Microbiology STAT One Time for 1 Occurrences starting 04/21/2020 until 04/21/2020 [place], [place] Comment on above: One Time for 1 Occurrences starting 12/2020 until 04/21/2020 Respiratory Panel, Molecular, with COVID-19 (Restricted: peds pts or suitable admitted adults) Respiratory Panel, Molecular, with COVID-19 (Restricted: peds pts or suitable admitted adults) Microbiology STAT 04/21/2020 12:47 AM EST [place], [place] Spirometry panel [facility] Work Phone: Comment on above: Every 2hr while awake until discontinued starting 07/23/2020 Q1H PRN until discon tinued starting 10/26/2020 Q1H PRN until discon tinued starting 11/19/2020 Spirometry panel Incentive maya metry Respiratory Care Routine Every 1hr while awake until discontinued starting 12/04/2021 [facility] Work Phone: Comment on above: Every 1hr while awake until discontinued starting 12/04/2021 Spirometry panel Incentive maya metry Respiratory Care Routine Every 1hr while awake until discontinued starting 12/18/2021 [facility] Work Phone: Comment on above: Every 1hr while awake until discontinued starting 12/18/2021 End: 04-29-2020 Strep Pneumoniae Antigen Strep Pneumoniae Antigen Microbiology Routine One Time for 1 Occurrences starting 04/29/2020 until 04/29/2020 [facility], [place] Comment on above: One Time for 1 Occurrences starting 04/13 until 04/29/2020 End: 06-05-2020 Surgical Pathology Surgical Pathology Lab STAT Once for 1 Occurrences starting 06/05/2020 until 06/05/2020 [facility] Work Phone: Comment on above: Once for 1 Occurrences starting 06/05/19 until 06/05/2020 Surgical Pathology [facility] Work Phone: End: 06-11-2020 Surgical Pathology Surgical Pathology Lab Routine Once for 1 Occurrences starting 06/11/2020 until 06/11/2020 [facility] Work Phone: Comment on above: Once for 1 Occurrences starting 06/12/19 until 06/11/2020 End: 06-05-2020 T4 T4 Lab Add-On One Time for 1 Occurrences starting 06/05/2020 until 06/05/2020 [facility] Work Phone: Comment on above: One Time for 1 Occurrences starting 05/15 until 06/05/2020 Tissue exam [employer] Comment on above: Release Upon Ordering for 1 Occurrences starting 03/02/2023, 1 completed End: 07-24-2020 Troponin I.cardiac [Mass/Vol] Troponin Lab Timed Every 6 Hours (Lab) for 3 Occurrences starting 07/23/2020 until 07/24/2020, 1 completed [facility] Work Phone: Comment on above: Every 6 Hours (Lab) for [address] arting 07/23/2020 until 07/24/2020, 1 completed Troponin I.cardiac [Mass/Vol] Troponin Lab Timed 07/24/2020 12:08 AM EDT [facility] Work Phone: Trshae electrosurg re scj prostate bleed complete TRANSURETHRAL RESECTION OF PROSTATE Benign prostatic hyperplasia with lower urinary tract symptoms [facility] Operating Room End: 02-28-2023 Vitamin A [employer] Comment on above: Once (Lab) for 1 Occurrences starting until 02/28/2023 End: 02-28-2023 Vitamin E [facility] [employer] [facility] Work Phone: Comment on above: Once (Lab) for 1 Occurrences starting until 02/28/2023 VL LOWER EXTREMITY BILATERAL VENOUS DUPLEX VL LOWER EXTREMITY BILATERAL VENOUS DUPLEX Imaging STAT 08/19/2020 1:14 PM EDT [facility] Work Phone: End: 04-01-2024 XR Hip - right 3 Views [facility] [employer] Work Phone: Comment on above: Once for 1 Occurrences starting 04/01/20 until 04/01/2024 End: 09-19-2021 XR KNEE BILATERAL STANDING [facility] Work Phone: Comment on above: 1 Occurrences starting 09/19/2021 until 09/19/2021 End: 02-26-2024 XR Shoulder - right 2 Views [facility] [employer] Work Phone: Comment on above: Once for 1 Occurrences starting 02/26/20 until 02/26/2024 [facility] Immunizations Immunization Date Immunization Notes Care Provider Fa [facility] 06-18-2024 tetanus toxoid, redu aurora diphtheria toxoid, and acellular pertussis vaccine, adsorbed Louisa Suhail DO Work Phone: [facility] 02-18-2024 influenza virus vaccine, unspecified formulation Akanksha Blanc PsyD Work Phone: [facility] 02-27-2023 influenza virus vaccine, unspecified formulation Sherlyn Del Rio PA-C Work Phone: [facility] 01-23-2022 influenza virus vaccine, unspecified formulation Irene Rubin RD Work Phone: [facility] 05-01-2020 influenza, injectabl e, quadrivalent, preservative free [facility]2020 influenza quadrivale nt split vaccine (FLUZONE;FLUARIX;FLULAV AL;AFLURIA) injection 0.5 mL Louisa Marina [facility], [place] 01-29-2015 influenza virus vaccine, unspecified formulation Yadiel [facility] [place], [place] 07-06-2014 tetanus toxoid, redu aurora diphtheria toxoid, and acellular pertussis vaccine, adsorbed Yadiel Cavanaugh [facility], [place] 01-12-2014 influenza virus vaccine, unspecified formulation Yadiel [place] 04-20-2013 influenza virus vaccine, unspecified formulation Yadiel Cavanaugh [facility] 04-13-2002 Td, unspecified formulation Yadiel Cavanaugh [facility], [place] Payers Date Payer Category Payer Medicare HMO [id number] 2024 Medicare [id number] 2022 Medicare [id number] 2022 Medicare [id number] 2020 Medicaid [id number] 2020 Unknown BCBS [place] [id number] 2020-Present [address] [place] [address] [id number]. [id number] 2019 Medicaid [id number] 2019 Unknown [employer] [facility] [place] [id number] 2019-Present Indemnity [id number] 2019 Unknown [employer] [facility] MEDICAID [id number] 2019-Present [phone] CLAIMS DEPARTMENT [address] [place] [address] [id number] 1963 Unknown [id number]. 1963 Unknown [id number]. 1963 Unknown [id number]. 1963 Unknown [id number]. 1963 Unknown [id number]. 1963 Unknown [id number] 1963 Unknown [id number]. 1963 Unknown [id number]. 1963 Unknown [id number]. 1965 Unknown [id number]. 1965 Unknown [id number] Unknown Social History Date Type Detail Facility Start: 09-08-2019 End: 11-18-2021 Tobacco smoking status [facility] Never smoker [facility] Start: 09-08-2019 End: 11-18-2021 Tobacco use and exposure [facility] Start: 09-08-2019 Alcohol intake Ex-drinker (finding) [facility] Start: 1965 Sex Assigned At Not on file [facility] Start: 05-19-2021 End: 12-01-2022 Exposure to SARS-CoV-2 (event) Not sure [facility] Start: 03-30-2020 End: 06-24-2021 Alcohol intake Current non-drinker of alcohol (finding) [facility] Exposure to SARS-CoV -2 (event) Yes [facility] Start: 10-19-2020 End: 02-08-2025 Alcohol intake Lifetime non-drinker (finding) [employer] Phone: Start: 10-19-2020 End: 07-03-2022 History SDOH Alcohol Frequency 1 [facility] Work Phone: Start: 07-03-2022 History SDOH Alcohol Std Drinks 0 [employer] Start: 07-03-2022 End: 06-23-2024 History of Social function [employer] Start: 07-03-2022 End: 06-23-2024 Alcohol Use Disorder Identification Test - Consumption [AUDIT-C] [employer] How often to you hav e a drink containing alcohol? Never [employer] How many standard dr inks containing alcohol do you have on a typical day? Patient does not drink [employer] Start: 1965 Sex Assigned At Male [employer] Start: 02-21-2023 Gender identity Identifies as male gender (finding) [employer] Has the [employer], [employer], oil, or water [employer] threatened to shut off services in your home in past 12Mo No [employer] (I/We) worried wheth er (my/our) food would run out before (I/we) got money to buy more. Never true [employer] Start: 11-11-2021 Sex Male (finding) [employer] Medical Equipment Procedure Code Equipment Code Equipment Origin al Text Equipment Identifier Dates Shell Trident Clusterhole 56mm - [id number] FDA Start: 05-27-2024 Comp Liner Tri X 3 0d 36mm Szf - [id number], [id number] FDA Start: 05-27-2024 Comp Stem Fem Co llar Hi Sz6 - [id number] , [id number] FDA Start: 05-27-2024 Comp Head Fem V4 0 36mm -2mm - [id number] [id number] , [id number] FDA Start: 05-27-2024 Screw Hex Tri2 L opro 6.5x20mm - [id number] [id number], [id number] FDA Start: 05-27-2024 Screw Hex Tri2 L opro 6.5x40mm - [id number] [id number], [id number] FDA Start: 05-27-2024 Functional Status Date Assessment Result Facility 09-27-2024 Total score [AUDIT-C] 0 09/28/19 10:03 AM EDT Socorro Jackson RN [facility] Clinical Notes 08-14-2020 to 02-15-2025 Discharge InstructionsChar Jones RN - 02/15/2025 11:25 AM Shorty Jones RN - 02/15/2025 11:25 AM Eryn Anderson MD - 02/08/2025 8:45 AM Yenny Rojas DO - 02/01/2025 2:45 PM EDT Note Date & Type Note Facility 02-15-2025 Hospital Discharg e instructions Navjot Albert PA-C - 02/15/2025 2:50 PM EST Follow up with Dr Anderson and Pain management as soon as possible. documented in this encounter [facility] 02-15-2025 Emergency department Note Call to pharmacy to confirm correct dose, route, and volume of injection. Jeffrey, pharmacist, confirms this is a safe administration. [facility] 02-15-2025 Emergency department Note Call to pharmacy to confirm correct dose, route, and volume of injection. Jeffrey pharmacist, confirms this is a safe administration. documented in this encounter [facility] 02-08-2025 History of Presen t illness Narrative [facility] [place] [address] [place] [address] [place] [id number] Dept: [phone] Dept 02/08/2025 Chief Complaint Patient presents with Follow-up FU/right hip, 4wk post GTB injection Subjective: Sophie is approximately 8 month(s) out from a right total hip arthroplasty. Pain is mild. Lateral hip pain. Patient has noted issues with: nothing out of the ordinary. Assistive device for ambulation: none. Pre-operative symptoms are improved. The patient is able to walk 0 blocks and is not able to use stairs. Patient denies calf pain or unusual swelling. ED visit since surgery: No Hospital re-admit since surgery: No Complication since surgery: No Review of Systems Constitutional: Negative for activity change. HENT: Negative for congestion. Cardiovascular: Negative for leg swelling. Musculoskeletal: Positive for arthralgias, gait problem and joint swelling. Skin: Negative for wound. Neurological: Negative for weakness. Objective: There were no vitals taken for this visit. Ortho Exam [place] well today and non-toxic. Gait is antalgic. Incision healing well. Skin otherwise is warm, dry and intact. Swelling is mild. Hip ROM is smooth and non-tender with no signs or symptoms of instability. Sophie remains neuro intact to the operative leg. No evidence of DVT seen on physical exam. No cords or calf tenderness. No significant calf/ankle edema. The patient does not appreciate a leg length discrepancy. XRAYS: 02/07/25 images obtained by outside radiology department independently reviewed and interpreted by myself today in office. Indication: Status post right total hip arthroplasty. Exam Ordered: Radiographs taken today include an anteroposterior pelvis, an AP, and lateral view of the right proximal femur including the hip joint. Details of Examination: Exam show a well fixed, well positioned hip arthroplasty with no evidence of wear, osteolysis, fracture, or loosening. Impression: Status post right total hip arthroplasty, implant in good position with no abnormality. Assessment 1. S/P total right hip arthroplasty 2. Primary osteoarthritis of right hip 3. Trochanteric bursitis of right hip 4. Low back pain, unspecified back pain laterality, unspecified chronicity, unspecified whether sciatica present Plan The above findings were discussed with patient length. We discussed the options of conservative versus possible surgical management of their knee. At this point considering the patient's level of activity, pain, and radiographic findings, I recommended continued conservative management. This treatment will consist of... ~ Activity modification ~ Continue previous non-op plan from previous visit ~ NSAID's (OTC preferred) - The risks and benefits of NSAID medications were discussed. NSAID's can have potential renal/cardiac/gastric side effects. ~ Tylenol ~ Physical therapy (prescription provided) ~ SM set up for another bursa injection in 1 month, helped for about a month. Would like to start PT to help him get over this soft tissue pain post-op The risks, benefits, and alternatives to all of the treatment options were thoroughly explained. Patient will call us with any questions or concerns regarding this plan or if any significant issues arise. Follow-up 4 months. New images. Electronically signed by Antony Anderson M.D. 02/08/2025 at 10:22 AM. documented in this encounter [facility] 02-01-2025 History of Presen t illness Narrative WILIAM FERNANDEZ MD First Office Visit: 11/23/2024 Today' Date: 02/01/2025 Last Office Visit: 11/23/2024 Chief complaint: R lateral hip pain HPI: Pt is a pleasant 59 y.o., who presents for evaluation. Referred by Dr. Fernandez. Pt complains of R lateral hip pain since surgery but is never let up. Located in lateral glutes lateral hip. Has had chronic pain with chronic prescription opiate use managed by Dr. Fernandez notes that after surgery he did not have increased dosing but maintain with poor pain control. To this point is completed 12 visits of physical therapy June through July 2024 and has been diligent with HEP since working on glutes strengthening balance core control and lumbar strengthening which he has completed at least every other day 20 to 30 minutes each time. He has had poor improvement with these and while he feels more stable and stronger the pain in the lateral hip persists. He is down from 500 pounds at this point and will continue working on weight loss Interval 02/01/2025 Has presenting to opiate start wean. Has stopped alprazolam, last one 4 days ago. Ran out of percocet on 01/25/2025. Has been having worsening pain and malaise, upset stomach severely. Relevant Imaging/ Testing: I personally reviewed and independently interpreted the following today- Reviewed primary care note Dr. Fernandez 12/26/2024 Reviewed sports medicine note Dr. Salazar 12/08/2024 Reviewed primary care documentation Dr. Fernandez 01/25/2025 MRI R Hip 11/2024 Gluteal tendinopathy without high grade tear, MR L-spine 08/2024-multilevel degenerative changes bilateral neuroforaminal narrowing L3-4 and L4-5 XR right hip 07/2024-postsurgical hardware appears intact without signs of loosening. Other Imaging/ results: N/A Procedures: None Date of board of pharmacy review:02/01/2025 Date of opioid risk screening/ pain psych: None Date of opioid agreement and consent: None Date of urine drug screen: None Date of random pill count: None OARRS was reviewed today: Percocet 5-325 milligrams 3 times daily with concomitant alprazolam 1 mg daily gabapentin stable additional tramadol short courses intermittent Prescribed medications: None See EHR for PMH, PSH, FH, SH, Medications and Allergy ROS: Positive for pain PE: Vitals: 02/01/25 1437 BP: 139/79 Pulse: 86 General: Pleasant, no distress HEENT: NC/ AT. PERRL CV: Radial pulses intact Pulm: No distress Ext: No edema Neuromusculoskeletal: Head: NC, AT. PERRL. Lumbar: Limited Range of motion. Positive facet loading. Min Tenderness. Neg SL Hip: Pain limited range of motion without groin pain all pain is on the lateral hip.. Right GTB tenderness with gluteal atrophy present SI: No tenderness. Knee: intact Range of motion. No Tenderness. No Swelling. Min Crepitis Reflexes: normal Bicep. Brachiradialis. Knee. Ankles Strength: 5/5 globally 4/5 right hip flexion Sensory: Grossly intact Skin: No bruising, erythema Gait: Normal Impression: Right lateral hip pain chronic not at goal Postsurgical right hip chronic not at goal Chronic prescription opiate use Low back pain chronic not at goal Lumbar radiculopathy chronic not at goal Relevant History Right GEORGE 05/27/2024 CAD History of TIA GERD Diffuse membranous glomerular nephrosis Post lumbar laminectomy cervical Chronic benzodiazepine use. Hx PSCF Donich Plan: Discussed options Imaging/ relevant records viewed/ reviewed/ discussed Imaging results viewed and reviewed (noted above)/ reviewed with patient OARRS reviewed Right lateral hip pain, postsurgical right hip Patient at this point is completed 12 visits of PT and has been diligent with HEP since hip surgery in May 2024 Went through MRI Hip Continue increasing aquatic exercise Chronic prescription opiate use Start Wean ORT 0, PHQ9 0 [employer] today-expect THC and benzodiazepines Pain agreement today Separate Ocycodone and Tylenol Oxycodone 5mg TID PRN starting with 90# Plan fo # 85 next fill Can consider to wean Patient has stopped Benzo, expect in urine Atarax for sleep Low back pain, Lumbar radiculopathy HEP provided today. Robyn Plan for reeval and L4-5 ILESI. Reevaluate The impression and plan were discussed and explained in detail. All the questions were answered. Education was provided accordingly. Follow-up:4 weeks or sooner as needed Dictated using [employer] Version 2.4 Proof read however unrecognized voice recognition errors may have occurred Elba Rojas DO Interventional Pain Management PM&R documented in this encounter [facility] 01-31-2025 Telephone encounter Note Patient informed [facility] 01-31-2025 Miscellaneous Notes Patient informed S: Patient spoke with CAC nurse regarding medication withdrawal B: Onset of symptoms/concern 01/29/25 A: States called requesting refill of Oxycodone 5 mg and states no refill has been sent to pharmacy. States was advised by Dr. Fernandez office they can no longer prescribe medication as patient was referred to pain management. States they are having withdrawal symptoms with shaking, headaches, insomnia, anxiety, nausea nd vomiting, some confusion. Asking if medication will be sent to pharmacy? R: Patient advised to go to ED with withdrawal symptoms as they have visible shaking. Patient is asking for call back [phone] to advise who is to prescribe medication or with further recommendations. Patient understands care advice and states they will go to [facility] ED. No further needs at this time. Patient instructed to call back with new or worsening symptoms. Reason for Disposition Feeling very shaky (i.e., visible tremors of hands) Protocols used: Opioid Use and [id number] documented in this encounter [facility] 01-30-2025 Telephone encounter Note S: Patient spoke with CAC nurse regarding medication withdrawal B: Onset of symptoms/concern 01/29/25 A: States called requesting refill of Oxycodone 5 mg and states no refill has been sent to pharmacy. States was advised by Dr. Fernandez office they can no longer prescribe medication as patient was referred to pain management. States they are having withdrawal symptoms with shaking, headaches, insomnia, anxiety, nausea nd vomiting, some confusion. Asking if medication will be sent to pharmacy? R: Patient advised to go to ED with withdrawal symptoms as they have visible shaking. Patient is asking for call back [phone] to advise who is to prescribe medication or with further recommendations. Patient understands care advice and states they will go to [facility] ED. No further needs at this time. Patient instructed to call back with new or worsening symptoms. Reason for Disposition Feeling very shaky (i.e., visible tremors of hands) Protocols used: Opioid Use and [id number] [facility] 01-30-2025 Telephone encounter Note Notes faxed on 01/27 [facility] 01-30-2025 Miscellaneous Notes Notes faxed on 01/27 Called and spoke to patient informed patient Dr. Fernandez office called got verbal permission to send the office not from Dr. Rojas to Dr. Fernandez explained how we are interventional pain management Name of caller: Titi Contact phone number: [phone] Relationship to Patient: patient Provider: Dr Rojas Practice: Pain Management Chief Complaint/Reason for Call: Patient was seen in the office yesterday by Dr Rojas. Patient stated that he needs a refill on his Percocet 5-325mg. Stated that he was told that Dr Fernandez would need to send in his pain medication. Patient stated that Dr Fernandez stated that he can not prescribe him pain medication anymore since he was referred to pain management and he will need to get his pain medication through pain management. Patient asking for a refill to go to [facility]/pharmacy #[id number] - [place], [place] - [address] [facility]. Patient stated he is worried about with draws and asking for a call back as soon as possible. Please call patient back to advise. Best time of day caller can be reached: Any Patient advised that office/PCP has 24-48 business hours to return their call: N/A documented in this encounter [facility] 01-27-2025 Telephone encounter Note Called and spoke to patient informed patient Dr. Fernandez office called got verbal permission to send the office not from Dr. Rojas to Dr. Fernandez explained how we are interventional pain management [facility] 01-27-2025 Telephone encounter Note Name of caller: Titi Contact phone number: [phone] Relationship to Patient: patient Provider: Dr Rojas Practice: Pain Management Chief Complaint/Reason for Call: Patient was seen in the office yesterday by Dr Rojas. Patient stated that he needs a refill on his Percocet 5-325mg. Stated that he was told that Dr Fernandez would need to send in his pain medication. Patient stated that Dr Fernandez stated that he can not prescribe him pain medication anymore since he was referred to pain management and he will need to get his pain medication through pain management. Patient asking for a refill to go to [facility]/pharmacy #[id number] - [place], [place] - [address] [facility]. Patient stated he is worried about with draws and asking for a call back as soon as possible. Please call patient back to advise. Best time of day caller can be reached: Any Patient advised that office/PCP has 24-48 business hours to return their call: N/A [facility] 01-26-2025 History of Presen t illness Narrative WILIAM FERNANDEZ MD First Office Visit: 11/23/2024 Today' Date: 01/26/2025 Last Office Visit: 11/23/2024 Chief complaint: R lateral hip pain HPI: Pt is a pleasant 59 y.o., who presents for evaluation. Referred by Dr. Fernandez. Pt complains of R lateral hip pain since surgery but is never let up. Located in lateral glutes lateral hip. Has had chronic pain with chronic prescription opiate use managed by Dr. Fernandez notes that after surgery he did not have increased dosing but maintain with poor pain control. To this point is completed 12 visits of physical therapy June through July 2024 and has been diligent with HEP since working on glutes strengthening balance core control and lumbar strengthening which he has completed at least every other day 20 to 30 minutes each time. He has had poor improvement with these and while he feels more stable and stronger the pain in the lateral hip persists. He is down from 500 pounds at this point and will continue working on weight loss Interval 01/26/2025 Presenting to discuss MRI and would like to start slow wean form pain medication. Discussed that chronic benzodiazepine use is the limping factor in initiating it. Relevant Imaging/ Testing: I personally reviewed and independently interpreted the following today- Reviewed primary care note Dr. Fernandez 12/26/2024 Reviewed sports medicine note Dr. Salazar 12/08/2024 Reviewed primary care documentation Dr. Fernandez 01/25/2025 MRI R Hip 11/2024 Gluteal tendinopathy without high grade tear, MR L-spine 08/2024-multilevel degenerative changes bilateral neuroforaminal narrowing L3-4 and L4-5 XR right hip 07/2024-postsurgical hardware appears intact without signs of loosening. Other Imaging/ results: N/A Procedures: None Date of board of pharmacy review:01/26/2025 Date of opioid risk screening/ pain psych: None Date of opioid agreement and consent: None Date of urine drug screen: None Date of random pill count: None OARRS was reviewed today: Percocet 5-325 milligrams 3 times daily with concomitant alprazolam 1 mg daily gabapentin stable additional tramadol short courses intermittent Prescribed medications: None See EHR for PMH, PSH, FH, SH, Medications and Allergy ROS: Positive for pain PE: There were no vitals filed for this visit. General: Pleasant, no distress HEENT: NC/ AT. PERRL CV: Radial pulses intact Pulm: No distress Ext: No edema Neuromusculoskeletal: Head: NC, AT. PERRL. Lumbar: Limited Range of motion. Positive facet loading. Min Tenderness. Neg SL Hip: Pain limited range of motion without groin pain all pain is on the lateral hip.. Right GTB tenderness with gluteal atrophy present SI: No tenderness. Knee: intact Range of motion. No Tenderness. No Swelling. Min Crepitis Reflexes: normal Bicep. Brachiradialis. Knee. Ankles Strength: 5/5 globally 4/5 right hip flexion Sensory: Grossly intact Skin: No bruising, erythema Gait: Normal Impression: Right lateral hip pain chronic not at goal Postsurgical right hip chronic not at goal Chronic prescription opiate use Low back pain chronic not at goal Lumbar radiculopathy chronic not at goal Relevant History Right GEORGE 05/27/2024 CAD History of TIA GERD Diffuse membranous glomerular nephrosis Post lumbar laminectomy cervical Chronic benzodiazepine use. Hx PSCF Donich Plan: Discussed options Imaging/ relevant records viewed/ reviewed/ discussed Imaging results viewed and reviewed (noted above)/ reviewed with patient OARRS reviewed Right lateral hip pain, postsurgical right hip Patient at this point is completed 12 visits of PT and has been diligent with HEP since hip surgery in May 2024 Went through MRI Hip Continue increasing aquatic exercise Chronic prescription opiate use Continue managing with Dr. Fernandez Can consider to wean Patient will need to be off of benzodiazepines before consideration of Low back pain, Lumbar radiculopathy HEP provided today. Robyn Plan for reeval and L4-5 ILESI. Reevaluate The impression and plan were discussed and explained in detail. All the questions were answered. Education was provided accordingly. Follow-up: 6 weeks or sooner as needed Dictated using [employer] Version 2.4 Proof read however unrecognized voice recognition errors may have occurred Elba Rojas DO Interventional Pain Management PM&R documented in this encounter [facility] 01-26-2025 Instructions Elba Rojas DO - 01/26/2025 8:00 AM EDT [employer] 3 for core stability, [facility] The following attachments cannot be sent through Care Everywhere.Core Strengthening Exercises on Back or on Hands and Knees (Honduran)documented in this encounter [facility] 01-16-2025 Telephone encounter Note Scheduled 05/25/25. [facility] 01-16-2025 Miscellaneous Notes Scheduled 05/25/25. Name of caller: Titi Contact phone number: [phone] Relationship to Patient: patient Provider: Saba Sam Practice: Senior Services Chief Complaint/Reason for Call: Patient calling to schedule for neurophysiological testing, please call to schedule. Best time of day caller can be reached: any Patient advised that office/PCP has 24-48 business hours to return their call: no documented in this encounter [facility] 01-12-2025 Telephone encounter Note Name of caller: Titi Contact phone number: [phone] Relationship to Patient: patient Provider: Saba Sam Practice: Senior Services Chief Complaint/Reason for Call: Patient calling to schedule for neurophysiological testing, please call to schedule. Best time of day caller can be reached: any Patient advised that office/PCP has 24-48 business hours to return their call: no [facility] 12-08-2024 History of Presen t illness Narrative Images from the original note were not included. [facility] - [address] [place] [id number] Dept: [phone] Dept Chief Complaint Patient presents with Other Right greater troch bursa injecton Subjective History of Present Illness: Sophie Hicks is a 59 y.o. male who presents today for ultrasound guided injection of right hip. He rates symptoms as a 6/10 at rest and a 8/10 at worst. Imaging to date: X-ray March 2024 Prior targeted injections: none. All of his pain is directly lateral Objective There were no vitals taken for this visit. Physical Exam: No sign of infection overlying injection site. Right hip: Exquisite tenderness to palpation directly laterally over the greater trochanter. No anterior hip pain. External Notes I personally reviewed external notes from: Dr. Sagar Alegria and pain management Labs Lab Results Component Value Date HGBA1C 5.5 11/20/2021 Lab Results Component Value Date CREATININE 1.00 06/30/2024 Imaging I have personally reviewed the images pertinent to the appointment today EMG/NCT N/A Procedure Procedure completed today, details below Informed Consent: Prior to the procedure, the patient's allergies were reviewed. The procedure site was marked. The risks, benefits, alternatives, and anticipated outcomes of the procedure were discussed. Consent included possibility of bleeding, infection, increased pain, hyperglycemia, steroid flare, hypopigmentation and fat atrophy. Procedure Description Use of ultrasound visualization of the needle was required to increase patient's safety by excluding inadvertent intermuscular or intertendinous placement and minimizing bleeding and injury by avoiding osteochondral and nearby neurovascular structures. Guidance also maximizes accurate injection placement and likely clinical benefit beyond that obtained from a non-guided injection. This allows increased diagnostic specificity when evaluating effectiveness of the injection. Verbal and written consent was obtained from the patient. Using real-time ultrasound I localized the right greater trochanter the injection site was marked and prepped in the usual sterile fashion with iodine and alcohol swabs. Using a 20-gauge 3.5 inch needle I anesthetized the soft tissues with 5 cc of 1% lidocaine using direct ultrasound guidance. I then injected the patient's right greater trochanter after aspiration without withdraw with 2 cc of 1% lidocaine and 1 cc Celestone. After the injection, a bandage was placed over the injection site. The patient tolerated the procedure well with no adverse effects. Post-injection instructions were reviewed with the patient and the patient voiced understanding. Pertinent ultrasound images were saved. He has significantly less pain to palpation postinjection as well as ambulating out of the office. Assessment Diagnosis Plan 1. Right hip pain 2. S/P total right hip arthroplasty Plan Sophie is here for ultrasound-guided right iliopsoas injection injection. Titi was initially scheduled for a diagnostic right iliopsoas injection with me several months ago. After examining him briefly prior to interviewing notes from pain management all of his pain is directly lateral over the greater trochanter. I did call Dr. Anderson and discussed trialing a greater trochanter injection instead. He was agreeable to this. Tolerated procedure well. Post injection instructions and expectations were reviewed. Follow-up with Dr. Anderson in 4 weeks He was understanding and agreeable to the plan discussed today and all questions were answered to his satisfaction. Follow up as needed. No follow-ups on file. Nahun Salazar DO 12/08/2024 2:04 PM Please note that portions of this note may have been completed with voice recognition software. Documentation reviewed prior to signing but minor errors in fruit room hand may have occurred. documented in this encounter [facility] 11-23-2024 Telephone encounter Note Name of caller: Titi Contact phone number: [phone] Relationship to Patient: patient Provider: [facility] Practice: pain management Chief Complaint/Reason for Call: patient is calling in trying to remember what the provider called the issue with their kidney. It was something the provider seen in the images with the patients kidneys. they wanted to let their kidney doctor know but couldnt remember the word. If someone could get back to them they would greatly appreciate it. It can be through [facility] as well. Please advise and thank you Best time of day caller can be reached: any Patient advised that office/PCP has 24-48 business hours to return their call: Yes [facility] 11-23-2024 Miscellaneous Notes Name of caller: Titi Contact phone number: [phone] Relationship to Patient: patient Provider: [facility] Practice: pain management Chief Complaint/Reason for Call: patient is calling in trying to remember what the provider called the issue with their kidney. It was something the provider seen in the images with the patients kidneys. they wanted to let their kidney doctor know but couldnt remember the word. If someone could get back to them they would greatly appreciate it. It can be through [employer] as well. Please advise and thank you Best time of day caller can be reached: any Patient advised that office/PCP has 24-48 business hours to return their call: Yes documented in this encounter [facility] 11-23-2024 History of Presen t illness Narrative WILIAM FERNANDEZ MD First Office Visit: 11/23/2024 Today' Date: 11/23/2024 Last Office Visit: None Chief complaint: R lateral hip pain HPI: Pt is a pleasant 59 y.o., who presents for evaluation. Referred by Dr. Fernandez. Pt complains of R lateral hip pain since surgery but is never let up. Located in lateral glutes lateral hip. Has had chronic pain with chronic prescription opiate use managed by Dr. Fernandez notes that after surgery he did not have increased dosing but maintain with poor pain control. To this point is completed 12 visits of physical therapy June through July 2024 and has been diligent with HEP since working on glutes strengthening balance core control and lumbar strengthening which she has completed at least every other day 20 to 30 minutes each time.. He has had poor improvement with these and while he feels more stable and stronger the pain in the lateral hip persists. He is down from 500 pounds at this point and will continue working on weight loss Relevant Imaging/ Testing: I personally reviewed and independently interpreted the following today- MR L-spine 08/2024-multilevel degenerative changes bilateral neuroforaminal narrowing L3-4 and L4-5 XR right hip 07/2024-postsurgical hardware appears intact without signs of loosening. Other Imaging/ results: N/A Procedures: None Date of board of pharmacy review:11/23/2024 Date of opioid risk screening/ pain psych: None Date of opioid agreement and consent: None Date of urine drug screen: None Date of random pill count: None OARRS was reviewed today: Percocet 5-325 milligrams 3 times daily with concomitant alprazolam 1 mg daily gabapentin stable additional tramadol short courses intermittent Prescribed medications: None See EHR for PMH, PSH, FH, SH, Medications and Allergy ROS: Positive for pain PE: There were no vitals filed for this visit. General: Pleasant, no distress HEENT: NC/ AT. PERRL CV: Radial pulses intact Pulm: No distress Ext: No edema Neuromusculoskeletal: Head: NC, AT. PERRL. Lumbar: Limited Range of motion. Positive facet loading. Min Tenderness. Neg SL Hip: Pain limited range of motion without groin pain all pain is on the lateral hip.. Right GTB tenderness with gluteal atrophy present SI: No tenderness. Knee: intact Range of motion. No Tenderness. No Swelling. Min Crepitis Reflexes: normal Bicep. Brachiradialis. Knee. Ankles Strength: 5/5 globally 4/5 right hip flexion Sensory: Grossly intact Skin: No bruising, erythema Gait: Normal Impression: Right lateral hip pain Postsurgical right hip Chronic prescription opiate use Relevant History Right GEORGE 05/27/2024 CAD History of TIA GERD Diffuse membranous glomerular nephrosis Post lumbar laminectomy cervical Plan: Discussed options Imaging/ relevant records viewed/ reviewed/ discussed Imaging results viewed and reviewed (noted above)/ reviewed with patient OARRS reviewed Right lateral hip pain, postsurgical right hip Patient at this point is completed 12 visits of PT and has been diligent with HEP since hip surgery in May 2024 MRI hip to evaluate soft tissues and glutes and surgical area to look for etiology Patient has access to a pool and we discussed increasing aquatic exercise to work in a weightless environment see if that improves things Chronic prescription opiate use Continue managing with Dr. Fernandez Can consider to wean Reevaluate The impression and plan were discussed and explained in detail. All the questions were answered. Education was provided accordingly. Follow-up: After MRI or sooner as needed Dictated using [employer] Version 2.4 Proof read however unrecognized voice recognition errors may have occurred Elba Rojas DO Interventional Pain Management PM&R documented in this encounter [facility] 10-25-2024 Telephone encounter Note I called patient to assess his symptoms and how he was doing after the office visit a month ago. Infection was ruled down with unremarkable esr/crp. He states that he is feeling better each day and back to doing normal daily activities. The MDP helped treat his symptoms. He was scheduled to follow up with sports medicine for diagnostic iliopsoas injection but missed the appointment because of other life circumstances. Discussed that if symptoms return or suddenly worsen then we can reconsider this in the future. Otherwise, patient has no concerns/symptoms with his hip. [facility] 10-25-2024 Miscellaneous Notes I called patient to assess his symptoms and how he was doing after the office visit a month ago. Infection was ruled down with unremarkable esr/crp. He states that he is feeling better each day and back to doing normal daily activities. The MDP helped treat his symptoms. He was scheduled to follow up with sports medicine for diagnostic iliopsoas injection but missed the appointment because of other life circumstances. Discussed that if symptoms return or suddenly worsen then we can reconsider this in the future. Otherwise, patient has no concerns/symptoms with his hip. documented in this encounter [facility] 10-18-2024 Telephone encounter Note Spoke to patient. Advised that there are no opennings at this time, and we are still waiting for a schedule for April. [facility] 10-18-2024 Miscellaneous Notes Spoke to patient. Advised that there are no opennings at this time, and we are still waiting for a schedule for April. Name of caller: Titi Contact phone number: [phone] Relationship to Patient: patient Provider: Dr Blanc Practice: [facility] Chief Complaint/Reason for Call: Patient called to follow up on testing. He stated that he is available anytime if something opens up. Please advise Best time of day caller can be reached: any Patient advised that office/PCP has 24-48 business hours to return their call: No Left message for Titi that neuropsych schedule is full through the end of the year, and they have not yet released the schedule for 2025. Advised that I will call as appointments come available or when 2025 schedule is open. Name of Caller: Titi Contact Reason for Appointment: referral Mild dementia with other behavioral disturbance, unspecified dementia type (HCC) (F03.A18 Office Name: [facility] Medication Refills need, if any: Medication Name: documented in this encounter [facility] 10-18-2024 Telephone encounter Note Name of caller: Titi Contact phone number: [phone] Relationship to Patient: patient Provider: Dr Blanc Practice: [facility] Chief Complaint/Reason for Call: Patient called to follow up on testing. He stated that he is available anytime if something opens up. Please advise Best time of day caller can be reached: any Patient advised that office/PCP has 24-48 business hours to return their call: No [facility] 2024 Telephone encounter Note Left message for Titi that neuropsych schedule is full through the end of the year, and they have not yet released the schedule for 2025. Advised that I will call as appointments come available or when 2025 schedule is open. [facility] 10-07-2024 Telephone encounter Note Name of Caller: Titi Contact Reason for Appointment: referral Mild dementia with other behavioral disturbance, unspecified dementia type (HCC) (F03.A18 Office Name: [facility] Medication Refills need, if any: Medication Name: [facility] 09-28-2024 Progress note Formatting of t his note might be different from the original. All looks good [facility] 09-28-2024 Miscellaneous Notes All looks good documented in this encounter [facility] 09-27-2024 Telephone encounter Note S: Patient spoke with KASANDRA RN regarding Severe hip pain, surgery [address] Anderson B: Onset of symptoms/concern yesterday A: Having problem with his leg, was in yesterday for this problem, states pain is worse now this morning, would like to know what to do, can hardly walk on it now due to sharp, shooting pain from hip to knee. Hip replacement 4 months ago. Pain in leg is worse. Difficulty using leg due to pain. Was seen yesterday for same issue by YOU Molina. Scheduled for nerve test and is unable to get into that until end of month, doesn't think he can wait that long. Denies: fever R: RN advised HP TE will be sent to office for further assistance due to evaluation in office yesterday. Advised to call back with any further questions, concerns, or worsening symptoms. No further needs at this time. Patient requesting callback at [phone]. Reason for Disposition [1] SEVERE pain (e.g., excruciating, unable to do any normal activities) AND [2] not improved after 2 hours of pain medicine Protocols used: Hip [id number] [facility] 09-27-2024 Miscellaneous Notes S: Patient spoke with KASANDRA RN regarding Severe hip pain, surgery [address] Anderson B: Onset of symptoms/concern yesterday A: Having problem with his leg, was in yesterday for this problem, states pain is worse now this morning, would like to know what to do, can hardly walk on it now due to sharp, shooting pain from hip to knee. Hip replacement 4 months ago. Pain in leg is worse. Difficulty using leg due to pain. Was seen yesterday for same issue by YOU Molina. Scheduled for nerve test and is unable to get into that until end of month, doesn't think he can wait that long. Denies: fever R: RN advised HP TE will be sent to office for further assistance due to evaluation in office yesterday. Advised to call back with any further questions, concerns, or worsening symptoms. No further needs at this time. Patient requesting callback at [phone]. Reason for Disposition [1] SEVERE pain (e.g., excruciating, unable to do any normal activities) AND [2] not improved after 2 hours of pain medicine Protocols used: Hip [id number] documented in this encounter [facility] 09-26-2024 History of Presen t illness Narrative [facility] [place] [address] [place] [address] [address] [facility]END[facility] S[facility] [id number] Dept: [phone] Dept 09/26/2024 Chief Complaint Patient presents with Follow-up DOS 05/27/24, RTHA; pain x 1 week Subjective: Sophie is approximately 4 month(s) out from a right total hip arthroplasty. Pain is severe. Patient has noted issues with: swelling and severe shooting pains in the hip to the knee . Assistive device for ambulation: straight cane. Pre-operative symptoms are improved. The patient is able to walk 4 blocks and is able to use stairs. Patient denies calf pain or unusual swelling. ED visit since surgery: Yes. Fall . Hospital re-admit since surgery: Yes. MRSA. Complication since surgery: Yes. Fall and MRSA. Review of Systems Objective: Resp 14 Ht 6' 2 (1.88 m) Wt 269 lb (122 kg) BMI 34.54 kg/m Ortho Exam [place] well today and non-toxic. Gait is antalgic. Incision healing well, no significant drainage, no dehiscence. Skin otherwise is warm, dry and intact. Swelling is mild. Hip ROM is smooth and non-tender with no signs or symptoms of instability. Sophie remains neuro intact to the operative leg. No evidence of DVT seen on physical exam. Negative Nayely's sign. No cords or calf tenderness. The patient does not appreciate a leg length discrepancy. XRAYS: Previous images in our system reviewed again today. Indication: Status post right total hip arthroplasty. Exam Ordered: Radiographs taken today include an anteroposterior pelvis, an AP, and lateral view of the right proximal femur including the hip joint. Details of Examination: Exam show a well fixed, well positioned hip arthroplasty with no evidence of wear, osteolysis, fracture, or loosening. Impression: Status post right total hip arthroplasty, implant in good position with no abnormality. Assessment 1. S/P total right hip arthroplasty 2. Primary osteoarthritis of right hip 3. Right hip pain 4. Iliopsoas bursitis of right hip Plan Sophie will continue with WBAT and therapy exercises. I would like to check the patient back in 2 month(s) with a low AP pelvis and lateral of the proximal femur. He was doing well until a week ago. Pain with hip flexion and palpation to quad muscle. Incision is well healed. Low suspicion for obvious infection. Will order ESR/CRP to rule down infection. If labs are unremarkable then I will send in a MDP. Referral placed to sports medicine for diagnostic injection of iliopsoas injection. We reviewed signs and symptoms of common post-operative issues including infection. We reviewed the need for prophylaxis with dental or other procedures. He will call and return sooner for questions, issues, or concerns. Maria G Jarvis PA-C Orthopedic Surgery Hip and Knee Reconstruction [facility] 09/26/2024 at 2:35 PM. documented in this encounter [facility] 09-26-2024 History of Presen t illness Narrative [facility] - [address] [place] [id number] Dept: [phone] Dept 09/26/2024 Chief Complaint Patient presents with Follow-up DOS 05/27/24, RTHA; pain x 1 week Subjective: Sophie is approximately 4 month(s) out from a right total hip arthroplasty. Pain is severe. Patient has noted issues with: swelling and severe shooting pains in the hip to the knee . Assistive device for ambulation: straight cane. Pre-operative symptoms are improved. The patient is able to walk 4 blocks and is able to use stairs. Patient denies calf pain or unusual swelling. ED visit since surgery: Yes. Fall . Hospital re-admit since surgery: Yes. MRSA. Complication since surgery: Yes. Fall and MRSA. Review of Systems Objective: Resp 14 Ht 6' 2 (1.88 m) Wt 269 lb (122 kg) BMI 34.54 kg/m Ortho Exam [place] well today and non-toxic. Gait is antalgic. Incision healing well, no significant drainage, no dehiscence. Skin otherwise is warm, dry and intact. Swelling is mild. Hip ROM is smooth and non-tender with no signs or symptoms of instability. Sophie remains neuro intact to the operative leg. No evidence of DVT seen on physical exam. Negative Nayely's sign. No cords or calf tenderness. The patient does not appreciate a leg length discrepancy. XRAYS: Previous images in our system reviewed again today. Indication: Status post right total hip arthroplasty. Exam Ordered: Radiographs taken today include an anteroposterior pelvis, an AP, and lateral view of the right proximal femur including the hip joint. Details of Examination: Exam show a well fixed, well positioned hip arthroplasty with no evidence of wear, osteolysis, fracture, or loosening. Impression: Status post right total hip arthroplasty, implant in good position with no abnormality. Assessment 1. S/P total right hip arthroplasty 2. Primary osteoarthritis of right hip 3. Right hip pain 4. Iliopsoas bursitis of right hip Plan Sophie will continue with WBAT and therapy exercises. I would like to check the patient back in 2 month(s) with a low AP pelvis and lateral of the proximal femur. He was doing well until a week ago. Pain with hip flexion and palpation to quad muscle. Incision is well healed. Low suspicion for obvious infection. Will order ESR/CRP to rule down infection. If labs are unremarkable then I will send in a MDP. Referral placed to sports medicine for diagnostic injection of iliopsoas injection. We reviewed signs and symptoms of common post-operative issues including infection. We reviewed the need for prophylaxis with dental or other procedures. He will call and return sooner for questions, issues, or concerns. Maria G Jarvis PA-C Orthopedic Surgery Hip and Knee Reconstruction [facility] 09/26/2024 at 2:35 PM. documented in this encounter [facility] 09-26-2024 Miscellaneous Notes Addended by: MARIA G JARVIS on: 09/29/2024 12:41 PM Modules accepted: Level of Service documented in this encounter [facility] 09-26-2024 Note Addended by: MARIA G JARVIS on: 09/29/2024 12:41 PM Modules accepted: Level of Service [facility] 09-20-2024 History of Presen t illness Narrative Images from the original note were not included. [facility] [place] [address] [facility] [address] Dept: [phone] Dept Loc: [phone] Visit type: [facility] Family Summary Conference Reason for Visit: Memory Loss Visit Date: 09/20/2024 Assessment and Plan 1. Mild dementia with other behavioral disturbance, unspecified dementia type (HCC) - Ambulatory referral to Neuropsychology 2. Bilateral hearing loss, unspecified hearing loss type We reviewed the diagnosis of mild stage unspecified dementia, course, prognosis and treatment. High suspicion for LBD due to visual hallucinations and presence of tremors, gait instability, falls, etc. Referred to neuropsych for further testing today due to young age, insight into own memory loss with mismatch in testing, and visual hallucinations. Discussed the option of medication. Opted to start nothing at this time because await more information from neuropsych testing. Can trial Sinemet for tremors at future visit. Reviewed management of the following behavioral symptoms: agitation, anxiety, depression, hallucinations, indifference/social withdrawal, and poor insight into own memory loss/functional deficits with disease progression Discussed safety management: obtaining POA and increased supervision Reviewed the importance of caregiver stress and support through following means: Alzheimer's Association support and legal assistance Reviewed advanced care plan. Advance Care Planning Advanced Care Planning Conversation Pertinent Diagnosis/es: mild dementia The patient and/or surrogate consented to a voluntary Advance Care Planning conversation. Sophie Briggsry retains capacity for medical decision-making Individuals present included: Patient and Spouse ( Libia). Summary of the conversation: Discussed importance of completing POAs and living will before they are needed and in case of an emergency. Pt/ plan on completing in the near future. Outcome of the conversation: Decision to complete HCPOA and/or Living Will. Social work consulted to assist Advance Directives were explained including HCPOA, Living Will and/or DNR. This is the first significant conversation I have had with this patient about advanced care planning. I spent 5 minutes providing separately identifiable ACP services with the patient and/or surrogate decision maker in a voluntary conversation discussing the patient's goals, values, and preferences as detailed in the note above. Saba Sam, PLANT OPERATOR CONTROL ROOM OPERATOR - FERRYBOAT OPERATOR HELPER *Time-based code 27560 for 16-45 minutes. Add-on code 82572 at 46 minutes and each additional 30 minutes. If does not meet time threshold, may code 1123F (code status/ACP and surrogate documented) or 1124F (ACP discussed and documented, but patient unable to decide ACP nor identify surrogate decision maker) Educational information and handouts on the above was provided to the caregiver. Hearing loss- Pt had 20 on hearing screening at initial visit. notes that he has difficulty. Recommend hearing evaluation to see if hearing aids are appropriate. Discussed importance of optimizing hearing for brain health. Audiology resources provided by today. Follow up in about 3 months (around 12/21/2024) for to discuss neuropsychological testing results. Subjective Sophie Hicks is a 58 y.o. male who returns today for a Family Summary Conference to review the care plan based on the comprehensive geriatric assessment completed at the last appointment. Initially seen in 07/2024 for memory loss x year, Rogers 14 (MIS 6), CDT 5, PHQ 14, PRINCESS 12, concern for mild unspecified dementia, ? LBD vs Parkinson's disease due to visual hallucinations and tremors, poorly controlled depression/anxiety likely impacting memory, labs and CT head ordered to complete work-up. Will likely order neuropsych testing. Patient update: Pt is here with his Libia. Had at least 1 fall since last visit per . ED visit on 08/03 for back pain. No interval medication changes or hospitalizations. Saw PCP since last visit. Allergies[1] Current Medications[2] Medical History[3] Social History Tobacco Use Smoking status: Never Smokeless tobacco: Never Substance Use Topics Alcohol use: Never Surgical History[4] Family History[5] Family Status Relation Name Status Mother Kerri hicks Father Titi hicks Sister Alive Brother Alive MGF PGM PGF Other No partnership data on file Objective Wt Readings from Last 3 Encounters: 09/26/24 269 lb (122 kg) 09/20/24 269 lb 12.8 oz (122 kg) 08/03/24 265 lb (120 kg) No physical exam performed Discussion only Data Reviewed and Summarized Problems and recommendations from initial assessment reviewed, Medications reviewed, Recent laboratory tests reviewed, and Recent diagnostic imaging reviewed Labs: Lab Results Component Value Date WBC 9.5 09/27/2024 HGB 12.5 (L) 09/27/2024 HCT 38.8 (L) 09/27/2024 MCV 82.2 09/27/2024 PLT 147 09/27/2024 Lab Results Component Value Date NA 138 06/30/2024 K 4.3 06/30/2024 CL 106 06/30/2024 CO2 22 06/30/2024 BUN 16 06/30/2024 CREATININE 1.00 06/30/2024 GLUCOSE 86 06/30/2024 CALCIUM 8.2 (L) 06/30/2024 PROT 6.5 06/27/2024 BILITOT 0.4 06/27/2024 ALKPHOS 85 06/27/2024 AST 25 06/27/2024 ALT 9 06/27/2024 AGRATIO 2.0 05/17/2024 GLOB 2.1 05/17/2024 Lab Results Component Value Date TSH 2.069 10/01/2023 Lab Results Component Value Date FOLATE 11.2 02/28/2023 Lab Results Component Value Date [id number] 08/23/2024 No results found for: RPR Imaging: head CT reviewed Testing: I reviewed the [place] CognitiveAssessment from the initial assessment with the patient and family. Total score was 14 out of 30. I spent total time of 40 minutes face to face with the patient and/or family discussing the diagnosis and importance of compliance with the treatment plan as well as documenting on the day of the visit. In addition, that total time includes the following (this does not include the time spent in Advanced Care Planning which, if done, was documented elsewhere in the note): -Reviewing previous notes, -Reviewing labs, -Reviewing previous cognitive tests, -Obtaining and/or reviewing separately obtained history, -Communicating results to the patient/family/caregiver, -Counseling/educating the patient/family/caregiver, -Documenting clinical information in the patients electronic record, and -Coordination of care for the patient [1] Allergies Allergen Reactions Iodinated Contrast Media Other reaction(s): Kidney disease Nsaids Other reaction(s): Kidney disease Due to Kidney Disease [2] Current Outpatient Medications Medication Sig Dispense Refill atorvastatin (Lipitor) 80 MG tablet Take 80 mg by mouth Nightly. buPROPion XL (Wellbutrin XL) 150 MG 24 hr tablet Take 150 mg by mouth daily. busPIRone (Buspar) 10 MG tablet Take 10 mg by mouth 2 times daily. cyclobenzaprine (Flexeril) 10 MG tablet Take 1 tablet (10 mg) by mouth 2 times daily as needed for muscle spasms for up to 10 days. 20 tablet 0 finasteride (Proscar) 5 MG tablet TAKE 1 TABLET BY MOUTH ONCE DAILY *DO NOT CRUSH, CHEW AND/OR DIVIDE 30 tablet 10 Fluticasone-Salmeterol (Advair Diskus) 250-50 MCG/ACT aerosol powder Inhale 1 puff 2 times daily. gabapentin (Neurontin) 600 MG tablet Take 600 mg by mouth 3 times daily. levothyroxine (Synthroid, Levoxyl) 75 MCG tablet Take 1 tablet by mouth every morning (before breakfast). lidocaine (Lidoderm) 5 % patch Apply 1 patch topically daily. (Patient taking differently: Apply 1 patch topically Daily as needed for mild pain (1-3).) Multiple Vitamins-Minerals (MULTIVITAMIN ADULTS 50+ PO) Take 1 tablet by mouth daily. ondansetron (Zofran) 4 MG tablet TAKE 1 TABLET BY MOUTH 3 TIMES DAILY NEEDED FOR NAUSEA & VOMITING NEEDED oxyCODONE (Roxicodone) 5 MG immediate release tablet Take 5 mg by mouth 2 times daily. sertraline (Zoloft) 50 MG tablet Take 50 mg by mouth daily. tamsulosin (Flomax) 0.4 MG 24 hr capsule TAKE 1 CAPSULE BY MOUTH ONCE DAILY 90 capsule 3 tiZANidine (Zanaflex) 2 MG tablet Take 2 mg by mouth 2 times daily as needed. Ventolin HFA 108 (90 Base) MCG/ACT inhaler Inhale 2 puffs every 6 hours as needed. ALPRAZolam (Xanax) 1 MG tablet Take 1 mg by mouth Nightly. dicyclomine (Bentyl) 10 MG capsule Take 10 mg by mouth in the morning and 10 mg at noon and 10 mg in the evening and 10 mg before bedtime. methylPREDNISolone (Medrol Dospak) 4 MG tablets Use as directed by package instructions 21 tablet 0 oxyCODONE-acetaminophen (Percocet) 5-325 MG tablet Take 1 tablet by mouth every 6 hours as needed for severe pain (7-10) for up to 3 days. 12 tablet 0 pantoprazole (ProtoNix) 40 MG EC tablet Take 1 tablet (40 mg) by mouth daily. 30 tablet 5 psyllium (Metamucil) 58.6 % powder Take 5.12 g (3 g of fiber) by mouth 2 times daily. 283 g 0 tadalafil (Cialis) 5 MG tablet Take 1 tablet (5 mg) by mouth daily. 90 tablet 3 No current facility-administered medications for this visit. [3] 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 Back pain Benign essential HTN 01/29/2015 Blood circulation, collateral CAD (coronary artery disease) mild - dx on cath - neg stress Cerebral artery occlusion with cerebral infarction (HCC) patient states not ever confirmed as stoke Chronic kidney disease COPD (chronic obstructive pulmonary disease) (HCC) COVID-19 05/03 COVID-19 vaccine series completed 09/25/2020 Moderna COVID-19 vaccine series completed 12/04/2020 BOOSTER CS (cervical spondylosis) 12/25/2004 CERVICAL SPINE DJD Depression Difficulty sleeping Dizziness GERD (gastroesophageal reflux disease) History of colonic polyps 06/21/2013 repeat 2019 Hyperlipidemia Hypothyroidism Insomnia 08/15/2014 Joint pain, hip Joint pain, knee Memory difficulties Motion sickness 05/24/2024 Muscle weakness Peripheral polyneuropathy 09/30/2020 Rheumatoid arthritis (HCC) Shortness of breath at rest Sleep apnea resolved with weight loss Snoring SOBOE (shortness of breath on exertion) Tuberculosis Type 2 diabetes mellitus (HCC) 03/19/2021 resolved after weight loss [4] Past Surgical History: Procedure Laterality Date ABDOMINAL SURGERY APPENDECTOMY BARIATRIC SURGERY 12/03/2021 Dr. Trevino CARDIAC CATHETERIZATION 12/17/2013 NORMAL CORONARY ARTERIES AND LVEF. COLONOSCOPY COLONOSCOPY 2020 CYSTOSCOPY 10/26/2020 CYSTOSCOPY 11/19/2020 CYSTOSCOPY 09/16/2023 EGD (HISTORICAL) 03/02/2023 JOINT REPLACEMENT NECK SURGERY Posterior cervical fusion PANNICULECTOMY (HISTORICAL) 09/23/2023 PROSTATE SURGERY Lapband ROTATOR CUFF REPAIR Bilateral 2023 both surgeries UPPER GASTROINTESTINAL ENDOSCOPY 01/24/2021 Dr. Cabello [5] Family History Problem Relation Name Age of Onset Cancer Mother Kerri hicks Osteoarthritis Mother Kerri hicks Lung cancer Mother Kerri hicks smoker Dementia Mother Kerri hicks Accidental Father Titi hicks Arthritis Father Titi hicks Asthma Father Titi hicks Depression Father Titi hicks Hearing loss Father Titi hicks Kidney disease Father Titi hicks Stroke Father Titi hicks Vision loss Father Titi hicks Coronary artery disease Other Interval history since last appointment: Any visits to primary care provider? Yes Any visits to the emergency department/hospital? Yes Any medication changes? No Any falls? Yes- 1 fall last week Present for visit: patient, Ellie Educational Materials reviewed/provided at visit: Memory/Cognitive Ability 10 Tips to Keeping Independent Memory Tips (mild) 5Ms Dealing with Dementia 10 Ways to Love Your Brain Exercise/Activities Dementia exercise tips Communication/Behaviors Communication - All Stages Communication Tips Caregiver Stress Coping Techniques for Caregiver Stress Diet Healthy Nutrition for Older Adults - [facility] Injury Prevention/Home Safety [facility] Home Safety Checklist [facility] Mobility for Adults Hearing/Vision Hearing Loss and Older Adults [employer] 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 List Medications Medication Safety/Dispensers Sleep Getting a Good Night's Sleep ([facility]) Driving Driving And Older Adults/Warning Signs - [facility] Advanced Directives Healthcare Power of Miter Grinder Operator Living Will Recommend Financial Power of Miter Grinder Operator Elder Law Miter Grinder Operator List [facility] Advanced Directives Information Guide documented in this encounter [facility] 09-20-2024 Instructions GREG Yanez CNP - 09/20/2024 4:00 PM EDT Mr. Hicks was seen today for memory loss, to go over results from initial visit. 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 I am not sure what specific type yet. I am ordering neuropsychological testing to help get more information about your memory loss. Our office will call to get this scheduled in the coming days. Then I will see you shortly after the testing is completed (around 3 months) to go over the results and discuss next steps. Medications: - No changes made today. Will discuss if medication changes are appropriate at next visit. 5 M s - supervision/assistance with medications, medical care, meals, money, mobility (driving, falls). Avoiding medications that cause confusion and falls - Tylenol PM, Benadryl. Avoid smoking or drinking alcohol. General recommendations for safe drinkin drink per day for females, 2 drinks per day for males. Recommend physical, mental, and social activity - Ex [employer], [employer] Sneakers. Recommend routines, schedules, and organization. Recommend getting adequate sleep and eating balanced diet. Continue regular visits with primary care provider to maintain chronic health conditions. Recommend completing advance directives, if not already completed- living will, health care POA, financial POA. Recommend caregiver support- Ex Alzheimer's [employer] support groups, in-home help vs adult day center. Follow-up visit in 3 months to discuss results of neuropsychological testing. documented in this encounter [facility] [employer] 09-12-2024 Telephone encounter Note S-Patient states he is short of breath and wheezing and is using inhalers B-States out of Nebulizer vials A-states he is coughing continuously and wheezing, using inhalers and Mucinex, has prod yellow sputum, hard to get it out R-Scheduled Same Day appt today 09/12/24 @ 9:10a with Dr Fernandez, back line of office notified . Advised to use inhaler again now. [facility] [employer] 09-12-2024 Miscellaneous Notes S-Patient states he is short of breath and wheezing and is using inhalers B-States out of Nebulizer vials A-states he is coughing continuously and wheezing, using inhalers and Mucinex, has prod yellow sputum, hard to get it out R-Scheduled Same Day appt today 09/12/24 @ 9:10a with Dr Fernandez, back line of office notified . Advised to use inhaler again now. Reason for Disposition [1] Longstanding difficulty breathing AND [2] not responding to usual therapy Answer Assessment - Initial Assessment Questions . Protocols used: Breathing [id number] documented in this encounter [facility] 09-12-2024 Telephone encounter Note Reason for Disposition [1] Longstanding difficulty breathing AND [2] not responding to usual therapy Answer Assessment - Initial Assessment Questions . Protocols used: Breathing [id number] [facility] 09-09-2024 Telephone encounter Note Called pt and rcvd voice mail. Left message for pt advised to call office back so we can get him scheduled to be seen in office. Relayed message from Maria G regarding the use of NSAIDs/Tylenol and ice for pain control and to avoid activities that worsen symptoms. [facility] 09-09-2024 Miscellaneous Notes Called pt and rcvd voice mail. Left message for pt advised to call office back so we can get him scheduled to be seen in office. Relayed message from Maria G regarding the use of NSAIDs/Tylenol and ice for pain control and to avoid activities that worsen symptoms. Spoke to pt he states he has been experiencing pain from his right knee up to his right hip for about a week. It has gradually become worse, he states when he is sitting and brings his knee up it hurts and rates the pain as a 8/10. Pt has to use his hands to help raise the knee up. Pt states there is no redness or swelling by his incision, that it is well healed. Pt wanted to bring this to Dr. Sagar dave now and not wait until his next appt at end of October. Advised pt I would send message to clinical staff. Name of Caller: Louie Relationship to Patient: Self Symptoms/Concerns: Patient had RTHA on 05/27/24 and is having pain from his right knee up to his hip. States it is a constant sharp pain when he tries to move his knee up while seated. He is not sure if this is normal or not. Please advise. Transferred to [place] Provider: Sagar Practice Name: [facility] [place] documented in this encounter [facility] 09-09-2024 Telephone encounter Note Spoke to pt he states he has been experiencing pain from his right knee up to his right hip for about a week. It has gradually become worse, he states when he is sitting and brings his knee up it hurts and rates the pain as a 8/10. Pt has to use his hands to help raise the knee up. Pt states there is no redness or swelling by his incision, that it is well healed. Pt wanted to bring this to Dr. Sagar dave now and not wait until his next appt at end of October. Advised pt I would send message to clinical staff. [facility] 09-09-2024 Telephone encounter Note Name of Caller: Louie Relationship to Patient: Self Symptoms/Concerns: Patient had RTHA on 05/27/24 and is having pain from his right knee up to his hip. States it is a constant sharp pain when he tries to move his knee up while seated. He is not sure if this is normal or not. Please advise. Transferred to [place] Provider: Sagar Practice Name: [facility] [place] [facility] 08-23-2024 Telephone encounter Note Message released to patient as written. CT has been completed Labs been done Patient's further questions if applicable: Patient states he is having lab work completed today 08/23/24. Patient states can schedule him for sooner appointment to schedule it and just notify in MyChart. Please advise. Were all questions from office addressed or relayed to the patient from encounter: No [facility] 08-23-2024 Miscellaneous Notes Message released to patient as written. CT has been completed Labs been done Patient's further questions if applicable: Patient states he is having lab work completed today 08/23/24. Patient states can schedule him for sooner appointment to schedule it and just notify in MyChart. Please advise. Were all questions from office addressed or relayed to the patient from encounter: No Message released to patient as written. CT has been completed Labs have NOT been done yet I left a message on Titi's voicemail that we can move him up. Also he still needs to have his lab work done. Patient's further questions if applicable: Patient states he is having lab work completed today 08/23/24. Patient states can schedule him for sooner appointment and just notify in MyChart. Please advise. Were all questions from office addressed or relayed to the patient from encounter: No CT has been completed Labs have NOT been done yet I left a message on Titi's voicemail that we can move him up. Also he still needs to have his lab work done. Name of caller: Titi Contact phone number: [phone] Relationship to Patient: patient Provider: Saba Sam Practice: [facility] Chief Complaint/Reason for Call: Patient calling to see if he can move his appointment up from 10/11/24 since all his testing is done. Please advise. Best time of day caller can be reached: any Patient advised that office/PCP has 24-48 business hours to return their call: no documented in this encounter [facility] 08-23-2024 Telephone encounter Note Message released to patient as written. CT has been completed Labs have NOT been done yet I left a message on Titi's voicemail that we can move him up. Also he still needs to have his lab work done. Patient's further questions if applicable: Patient states he is having lab work completed today 08/23/24. Patient states can schedule him for sooner appointment and just notify in MyChart. Please advise. Were all questions from office addressed or relayed to the patient from encounter: No [facility] 08-23-[address] has been completed Labs have NOT been done yet I left a message on Titi's voicemail that we can move him up. Also he still needs to have his lab work done. [facility] 08-23-2024 Telephone encounter Note Name of caller: Titi Contact phone number: [phone] Relationship to Patient: patient Provider: Saba Sam Practice: [facility] Chief Complaint/Reason for Call: Patient calling to see if he can move his appointment up from 10/11/24 since all his testing is done. Please advise. Best time of day caller can be reached: any Patient advised that office/PCP has 24-48 business hours to return their call: no T [facility] 08-03-2024 Emergency department Note EMERGENCY DEPARTMENT ENCOUNTER Pt Name: Titi Hicks Birthdate 1965 Date of evaluation: 08/03/2024 ED Provider: George Wright MD CHIEF COMPLAINT Chief Complaint Patient presents with Back Pain HISTORY OF PRESENT ILLNESS (Location/Symptom, Timing/Onset, Context/Setting, Quality, Duration, Modifying Factors, Severity) Note limiting factors. I wore appropriate PPE for the entirety of this encounter. HPI Titi Hicks is a 58 y.o. who presents to the emergency department with acute on chronic low back pain, worse with movement, he says it started about 2 months ago after having his right hip surgery, he saw Dr. Victoria 2 to 3 years ago but he weighed 500 pounds then and was not a candidate for surgery, he is now lost a lot of weight he is only to 63 now. No neurologic symptoms, no direct trauma. Patient denies any loss of bladder or bowel control, saddle anesthesia, radicular symptoms, history of IV drug abuse, or fevers. Patient denies any pain in the midline and says that the pain is exacerbated by movement and is located in the paraspinal musculature. Nursing Notes were reviewed. 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 Back pain Benign essential HTN 01/29/2015 Blood circulation, collateral CAD (coronary artery disease) mild - dx on cath - neg stress Cerebral artery occlusion with cerebral infarction (HCC) patient states not ever confirmed as stoke Chronic kidney disease COPD (chronic obstructive pulmonary disease) (HCC) COVID-19 05/03 COVID-19 vaccine series completed 09/25/2020 Moderna COVID-19 vaccine series completed 12/04/2020 BOOSTER CS (cervical spondylosis) 12/25/2004 CERVICAL SPINE DJD Depression Difficulty sleeping Dizziness GERD (gastroesophageal reflux disease) History of colonic polyps 06/21/2013 repeat 2019 Hyperlipidemia Hypothyroidism Insomnia 08/15/2014 Joint pain, hip Joint pain, knee Memory difficulties Motion sickness 05/24/2024 Muscle weakness Peripheral polyneuropathy 09/30/2020 Rheumatoid arthritis (HCC) Shortness of breath at rest Sleep apnea resolved with weight loss Snoring SOBOE (shortness of breath on exertion) Tuberculosis Type 2 diabetes mellitus (HCC) 03/19/2021 resolved after weight loss SURGICAL HISTORY Past Surgical History: Procedure Laterality Date ABDOMINAL SURGERY APPENDECTOMY BARIATRIC SURGERY 12/03/2021 Dr. Trevino CARDIAC CATHETERIZATION 12/17/2013 NORMAL CORONARY ARTERIES AND LVEF. COLONOSCOPY COLONOSCOPY 2020 CYSTOSCOPY 10/26/2020 CYSTOSCOPY 11/19/2020 CYSTOSCOPY 09/16/2023 EGD (HISTORICAL) 03/02/2023 JOINT REPLACEMENT NECK SURGERY Posterior cervical fusion PANNICULECTOMY (HISTORICAL) 09/23/2023 PROSTATE SURGERY Lapband ROTATOR CUFF REPAIR Bilateral 2023 both surgeries UPPER GASTROINTESTINAL ENDOSCOPY 01/24/2021 Dr. Cabello CURRENT MEDICATIONS Previous Medications ALPRAZOLAM (XANAX) 1 MG TABLET Take 1 mg by mouth Nightly. ATORVASTATIN (LIPITOR) 80 MG TABLET Take 80 mg by mouth Nightly. BUPROPION XL (WELLBUTRIN XL) 150 MG 24 HR TABLET Take 150 mg by mouth daily. BUSPIRONE (BUSPAR) 10 MG TABLET Take 10 mg by mouth 2 times daily. DICYCLOMINE (BENTYL) 10 MG CAPSULE Take 10 mg by mouth in the morning and 10 mg at noon and 10 mg in the evening and 10 mg before bedtime. FINASTERIDE (PROSCAR) 5 MG TABLET TAKE 1 TABLET BY MOUTH ONCE DAILY *DO NOT CRUSH, CHEW AND/OR DIVIDE FLUTICASONE-SALMETEROL (ADVAIR DISKUS) 250-50 MCG/ACT AEROSOL POWDER Inhale 1 puff 2 times daily. GABAPENTIN (NEURONTIN) 600 MG TABLET Take 600 mg by mouth 3 times daily. LEVOTHYROXINE (SYNTHROID, LEVOXYL) 75 MCG TABLET Take 1 tablet by mouth every morning (before breakfast). LIDOCAINE (LIDODERM) 5 % PATCH Apply 1 patch topically daily. MULTIPLE VITAMINS-MINERALS (MULTIVITAMIN ADULTS 50+ PO) Take 1 tablet by mouth daily. ONDANSETRON (ZOFRAN) 4 MG TABLET TAKE 1 TABLET BY MOUTH 3 TIMES DAILY NEEDED FOR NAUSEA & VOMITING NEEDED PANTOPRAZOLE (PROTONIX) 40 MG EC TABLET Take 1 tablet (40 mg) by mouth daily. PSYLLIUM (METAMUCIL) 58.6 % POWDER Take 5.12 g (3 g of fiber) by mouth 2 times daily. SERTRALINE (ZOLOFT) 50 MG TABLET Take 50 mg by mouth daily. TADALAFIL (CIALIS) 5 MG TABLET Take 1 tablet (5 mg) by mouth daily. TAMSULOSIN (FLOMAX) 0.4 MG 24 HR CAPSULE TAKE 1 CAPSULE BY MOUTH ONCE DAILY TIZANIDINE (ZANAFLEX) 2 MG TABLET Take 2 mg by mouth 2 times daily as needed. VENTOLIN HFA 108 (90 BASE) MCG/ACT INHALER Inhale 2 puffs every 6 hours as needed. ALLERGIES Iodinated contrast media and Nsaids FAMILY HISTORY Family History Problem Relation Name Age of Onset Cancer Mother Kerri hicks Osteoarthritis Mother Kerri hicks Lung cancer Mother Kerri hicks smoker Dementia Mother Kerri hicks Accidental Father Titi hicks Arthritis Father Titi hicks Asthma Father Titi hicks Depression Father Titi hicks Hearing loss Father Titi hicks Kidney disease Father Titi hicks Stroke Father Titi hicks Vision loss Father Titi hicks Coronary artery disease Other SOCIAL HISTORY Social History Socioeconomic History Marital status: Tobacco Use Smoking status: Never Smokeless tobacco: Never Vaping Use Vaping status: Never Used Substance and Sexual Activity Alcohol use: Never Drug use: No Sexual activity: Yes Partners: Female control/protection: Surgical, None Social Drivers of Health Food Insecurity: No Food Insecurity (06/23/2024) Hunger Vital Sign Worried About Running Out of Food in the Last Year: Never true Ran Out of Food in the Last Year: Never true Transportation Needs: No Transportation Needs (06/23/2024) PRAPARE - Transportation Lack of Transportation (Medical): No Lack of Transportation (Non-Medical): No Intimate Partner Violence: Not At Risk (06/23/2024) Humiliation, Afraid, Rape, and Kick questionnaire Fear of Current or Ex-Partner: No Emotionally Abused: No Physically Abused: No Sexually Abused: No Housing Stability: Low Risk (06/23/2024) Housing Stability Vital Sign Unable to Pay for Housing in the Last Year: No Number of Times Moved in the Last Year: 0 Homeless in the Last Year: No PHYSICAL EXAM ED Triage Vitals Temp Heart Rate Resp BP 08/03/24 0854 08/03/24 0854 08/03/24 0854 08/03/24 0854 36.5 C (97.7 F) 72 18 135/76 SpO2 Temp Source Heart Rate Source Patient Position 08/03/24 0854 08/03/24 0852 -- -- 97 % Oral BP Location FiO2 (%) -- -- Physical Exam GENERAL: The patient appears nourished and normally developed. Vital signs as documented. EYES: Head exam is unremarkable. No scleral icterus or orbital trauma noted. HEENT: Mucous membranes moist. Nares patent without copious rhinorrhea. No enlarged lymphadenopathy. EXTREMITIES: Nonedematous, with no obvious deformities. SKIN: Good color, with no significant rashes. No pallor. NEURO: No obvious neurological deficits. Patient moves without difficulty. MUSCULO-SKELETAL: Patient has some generalized lower back tenderness to palpation. No localized, midline bony tenderness and no evidence of fracture. Lower extremity motor function is normal. Lower extremity sensation is intact. DTRs are equal and normal bilaterally. Pain is most likely due to soft-tissue pain (muscular and/or ligamentous). DIAGNOSTIC RESULTS RADIOLOGY (Per Emergency Physician): Interpretation per the Radiologist below, if available at the time of this note: No orders to display LABS: Labs Reviewed - No data to display All other labs were within normal range or not returned as of this dictation. EMERGENCY DEPARTMENT COURSE and DIFFERENTIAL DIAGNOSIS/MDM: Vitals: Vitals: 08/03/24 0852 08/03/24 0854 BP: 135/76 Pulse: 72 Resp: 18 Temp: 36.5 C (97.7 F) TempSrc: Oral Temporal SpO2: 97% Weight: 120 kg (265 lb) Height: 1.88 m (6' 2) Medications - No data to display SCREENINGS MDM elements: The patient presented with chief complaint of with acute on chronic low back pain, no direct trauma. No red flag symptoms. Based on history and physical exam I do not feel that the patient is at high risk for cauda equina syndrome, conus medullaris syndrome, epidural abscess, discitis or vertebral osteomyelitis. The patient was instructed that if they have any worsening symptoms, any numbness or tingling in the genital area, any weakness, or any loss of bladder or bowel control or difficulty urinating the patient return immediately for reevaluation. They voiced understanding.. The differential diagnosis associated with this patient's presentation includes back spasms, disc herniation. Our workup consisted of ordering/reviewing: No need for imaging or labs will treat with pain medicine muscle relaxant and follow-up with Dr. Victoria. The patient will be Discharged. Patient is in agreement with this plan. PROCEDURES: Unless otherwise noted below, none Procedures CRITICAL CARE TIME None FINAL IMPRESSION 1. Acute exacerbation of chronic low back pain DISPOSITION Discharge 08/03/2024 09:05:43 AM PATIENT REFERRED TO: Raghav Victoria MD [id number] [facility] [id number] Schedule an appointment as soon as possible for a visit DISCHARGE MEDICATIONS: New Prescriptions CYCLOBENZAPRINE (FLEXERIL) 10 MG TABLET Take 1 tablet (10 mg) by mouth 2 times daily as needed for muscle spasms for up to 10 days. HYDROCODONE-ACETAMINOPHEN (NORCO) 5-325 MG TABLET Take 1 tablet by mouth every 6 hours as needed for severe pain (7-10) for up to 3 days. (Comment: Please note this report has been produced using speech recognition software and may contain errors related to that system including errors in grammar, punctuation, and spelling, as well as words and phrases that may be inappropriate. If there are any questions or concerns please feel free to contact the dictating provider for clarification.) George Wright MD (electronically signed) Emergency Medicine Provider George Wright MD 08/03/24908 Pt to ED c/o lower back pain and blurry vision that has been going on since he had hip surgery a few months ago. Has had follow up with orthopedic for R hip and is doing well. Pt states that the vision issue is present even with wearing his glasses but has not had a recent eye doctor appt documented in this encounter [facility] 08-03-2024 Emergency department Triage note Pt to ED c/o lower back pain and blurry vision that has been going on since he had hip surgery a few months ago. Has had follow up with orthopedic for R hip and is doing well. Pt states that the vision issue is present even with wearing his glasses but has not had a recent eye doctor appt [facility] 08-03-2024 Physician Emergency department Note EMERGENCY DEPARTMENT ENCOUNTER Pt Name: Titi Hicks Birthdate 1965 Date of evaluation: 08/03/2024 ED Provider: George Wright MD CHIEF COMPLAINT Chief Complaint Patient presents with Back Pain HISTORY OF PRESENT ILLNESS (Location/Symptom, Timing/Onset, Context/Setting, Quality, Duration, Modifying Factors, Severity) Note limiting factors. I wore appropriate PPE for the entirety of this encounter. HPI Titi Hicks is a 58 y.o. who presents to the emergency department with acute on chronic low back pain, worse with movement, he says it started about 2 months ago after having his right hip surgery, he saw Dr. Victoria 2 to 3 years ago but he weighed 500 pounds then and was not a candidate for surgery, he is now lost a lot of weight he is only to 65 now. No neurologic symptoms, no direct trauma. Patient denies any loss of bladder or bowel control, saddle anesthesia, radicular symptoms, history of IV drug abuse, or fevers. Patient denies any pain in the midline and says that the pain is exacerbated by movement and is located in the paraspinal musculature. Nursing Notes were reviewed. 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 Back pain Benign essential HTN 01/29/2015 Blood circulation, collateral CAD (coronary artery disease) mild - dx on cath - neg stress Cerebral artery occlusion with cerebral infarction (HCC) patient states not ever confirmed as stoke Chronic kidney disease COPD (chronic obstructive pulmonary disease) (HCC) COVID-19 05/03 COVID-19 vaccine series completed 09/25/2020 Moderna COVID-19 vaccine series completed 12/04/2020 BOOSTER CS (cervical spondylosis) 12/25/2004 CERVICAL SPINE DJD Depression Difficulty sleeping Dizziness GERD (gastroesophageal reflux disease) History of colonic polyps 06/21/2013 repeat 2019 Hyperlipidemia Hypothyroidism Insomnia 08/15/2014 Joint pain, hip Joint pain, knee Memory difficulties Motion sickness 05/24/2024 Muscle weakness Peripheral polyneuropathy 09/30/2020 Rheumatoid arthritis (HCC) Shortness of breath at rest Sleep apnea resolved with weight loss Snoring SOBOE (shortness of breath on exertion) Tuberculosis Type 2 diabetes mellitus (HCC) 03/19/2021 resolved after weight loss SURGICAL HISTORY Past Surgical History: Procedure Laterality Date ABDOMINAL SURGERY APPENDECTOMY BARIATRIC SURGERY 12/03/2021 Dr. Trevino CARDIAC CATHETERIZATION 12/17/2013 NORMAL CORONARY ARTERIES AND LVEF. COLONOSCOPY COLONOSCOPY 2020 CYSTOSCOPY 10/26/2020 CYSTOSCOPY 11/19/2020 CYSTOSCOPY 09/16/2023 EGD (HISTORICAL) 03/02/2023 JOINT REPLACEMENT NECK SURGERY Posterior cervical fusion PANNICULECTOMY (HISTORICAL) 09/23/2023 PROSTATE SURGERY Lapband ROTATOR CUFF REPAIR Bilateral 2023 both surgeries UPPER GASTROINTESTINAL ENDOSCOPY 01/24/2021 Dr. Cabello CURRENT MEDICATIONS Previous Medications ALPRAZOLAM (XANAX) 1 MG TABLET Take 1 mg by mouth Nightly. ATORVASTATIN (LIPITOR) 80 MG TABLET Take 80 mg by mouth Nightly. BUPROPION XL (WELLBUTRIN XL) 150 MG 24 HR TABLET Take 150 mg by mouth daily. BUSPIRONE (BUSPAR) 10 MG TABLET Take 10 mg by mouth 2 times daily. DICYCLOMINE (BENTYL) 10 MG CAPSULE Take 10 mg by mouth in the morning and 10 mg at noon and 10 mg in the evening and 10 mg before bedtime. FINASTERIDE (PROSCAR) 5 MG TABLET TAKE 1 TABLET BY MOUTH ONCE DAILY *DO NOT CRUSH, CHEW AND/OR DIVIDE FLUTICASONE-SALMETEROL (ADVAIR DISKUS) 250-50 MCG/ACT AEROSOL POWDER Inhale 1 puff 2 times daily. GABAPENTIN (NEURONTIN) 600 MG TABLET Take 600 mg by mouth 3 times daily. LEVOTHYROXINE (SYNTHROID, LEVOXYL) 75 MCG TABLET Take 1 tablet by mouth every morning (before breakfast). LIDOCAINE (LIDODERM) 5 % PATCH Apply 1 patch topically daily. MULTIPLE VITAMINS-MINERALS (MULTIVITAMIN ADULTS 50+ PO) Take 1 tablet by mouth daily. ONDANSETRON (ZOFRAN) 4 MG TABLET TAKE 1 TABLET BY MOUTH 3 TIMES DAILY NEEDED FOR NAUSEA & VOMITING NEEDED PANTOPRAZOLE (PROTONIX) 40 MG EC TABLET Take 1 tablet (40 mg) by mouth daily. PSYLLIUM (METAMUCIL) 58.6 % POWDER Take 5.12 g (3 g of fiber) by mouth 2 times daily. SERTRALINE (ZOLOFT) 50 MG TABLET Take 50 mg by mouth daily. TADALAFIL (CIALIS) 5 MG TABLET Take 1 tablet (5 mg) by mouth daily. TAMSULOSIN (FLOMAX) 0.4 MG 24 HR CAPSULE TAKE 1 CAPSULE BY MOUTH ONCE DAILY TIZANIDINE (ZANAFLEX) 2 MG TABLET Take 2 mg by mouth 2 times daily as needed. VENTOLIN HFA 108 (90 BASE) MCG/ACT INHALER Inhale 2 puffs every 6 hours as needed. ALLERGIES Iodinated contrast media and Nsaids FAMILY HISTORY Family History Problem Relation Name Age of Onset Cancer Mother Kerri hicks Osteoarthritis Mother Kerri hicks Lung cancer Mother Kerri hicks smoker Dementia Mother Kerri hicks Accidental Father Titi hicks Arthritis Father Titi hicks Asthma Father Titi hicks Depression Father Titi hicks Hearing loss Father Titi hicks Kidney disease Father Titi hicks Stroke Father Titi hicks Vision loss Father Titi hicks Coronary artery disease Other SOCIAL HISTORY Social History Socioeconomic History Marital status: Tobacco Use Smoking status: Never Smokeless tobacco: Never Vaping Use Vaping status: Never Used Substance and Sexual Activity Alcohol use: Never Drug use: No Sexual activity: Yes Partners: Female control/protection: Surgical, None Social Drivers of Health Food Insecurity: No Food Insecurity (06/23/2024) Hunger Vital Sign Worried About Running Out of Food in the Last Year: Never true Ran Out of Food in the Last Year: Never true Transportation Needs: No Transportation Needs (06/23/2024) PRAPARE - Transportation Lack of Transportation (Medical): No Lack of Transportation (Non-Medical): No Intimate Partner Violence: Not At Risk (06/23/2024) Humiliation, Afraid, Rape, and Kick questionnaire Fear of Current or Ex-Partner: No Emotionally Abused: No Physically Abused: No Sexually Abused: No Housing Stability: Low Risk (06/23/2024) Housing Stability Vital Sign Unable to Pay for Housing in the Last Year: No Number of Times Moved in the Last Year: 0 Homeless in the Last Year: No PHYSICAL EXAM ED Triage Vitals Temp Heart Rate Resp BP 08/03/24 0854 08/03/24 0854 08/03/24 0854 08/03/24 0854 36.5 C (97.7 F) 72 18 135/76 SpO2 Temp Source Heart Rate Source Patient Position 08/03/24 0854 08/03/24851 -- -- 97 % Oral BP Location FiO2 (%) -- -- Physical Exam GENERAL: The patient appears nourished and normally developed. Vital signs as documented. EYES: Head exam is unremarkable. No scleral icterus or orbital trauma noted. HEENT: Mucous membranes moist. Nares patent without copious rhinorrhea. No enlarged lymphadenopathy. EXTREMITIES: Nonedematous, with no obvious deformities. SKIN: Good color, with no significant rashes. No pallor. NEURO: No obvious neurological deficits. Patient moves without difficulty. MUSCULO-SKELETAL: Patient has some generalized lower back tenderness to palpation. No localized, midline bony tenderness and no evidence of fracture. Lower extremity motor function is normal. Lower extremity sensation is intact. DTRs are equal and normal bilaterally. Pain is most likely due to soft-tissue pain (muscular and/or ligamentous). DIAGNOSTIC RESULTS RADIOLOGY (Per Emergency Physician): Interpretation per the Radiologist below, if available at the time of this note: No orders to display LABS: Labs Reviewed - No data to display All other labs were within normal range or not returned as of this dictation. EMERGENCY DEPARTMENT COURSE and DIFFERENTIAL DIAGNOSIS/MDM: Vitals: Vitals: 08/03/24 0808/03/24853 BP: 135/76 Pulse: 72 Resp: 18 Temp: 36.5 C (97.7 F) TempSrc: Oral Temporal SpO2: 97% Weight: 120 kg (265 lb) Height: 1.88 m (6' 2) Medications - No data to display SCREENINGS MDM elements: The patient presented with chief complaint of with acute on chronic low back pain, no direct trauma. No red flag symptoms. Based on history and physical exam I do not feel that the patient is at high risk for cauda equina syndrome, conus medullaris syndrome, epidural abscess, discitis or vertebral osteomyelitis. The patient was instructed that if they have any worsening symptoms, any numbness or tingling in the genital area, any weakness, or any loss of bladder or bowel control or difficulty urinating the patient return immediately for reevaluation. They voiced understanding.. The differential diagnosis associated with this patient's presentation includes back spasms, disc herniation. Our workup consisted of ordering/reviewing: No need for imaging or labs will treat with pain medicine muscle relaxant and follow-up with Dr. Victoria. The patient will be Discharged. Patient is in agreement with this plan. PROCEDURES: Unless otherwise noted below, none Procedures CRITICAL CARE TIME None FINAL IMPRESSION 1. Acute exacerbation of chronic low back pain DISPOSITION Discharge 08/03/2024 09:05:43 AM PATIENT REFERRED TO: Raghav Victoria MD [id number] [facility] [id number] Schedule an appointment as soon as possible for a visit DISCHARGE MEDICATIONS: New Prescriptions CYCLOBENZAPRINE (FLEXERIL) 10 MG TABLET Take 1 tablet (10 mg) by mouth 2 times daily as needed for muscle spasms for up to 10 days. HYDROCODONE-ACETAMINOPHEN (NORCO) 5-325 MG TABLET Take 1 tablet by mouth every 6 hours as needed for severe pain (7-10) for up to 3 days. (Comment: Please note this report has been produced using speech recognition software and may contain errors related to that system including errors in grammar, punctuation, and spelling, as well as words and phrases that may be inappropriate. If there are any questions or concerns please feel free to contact the dictating provider for clarification.) George Wright MD (electronically signed) Emergency Medicine Provider George Wright MD 08/03/24 [address] [facility] 07-27-2024 Telephone encounter Note Noted. Thank you [employer] Work Phone: 07-27-2024 Miscellaneous Notes Noted. Thank you Called pt and received voice mail. Left pt a voice messages stating we do not do spine injections but this can be discussed during his appointment this afternoon. Please let the patient know that we do not do spine injections. We can discuss this more at his appointment this afternoon. Name of caller: Titi Contact phone number: [phone] Relationship to Patient: patient Provider: Deyanira Practice: Ortho Chief Complaint/Reason for Call: Pt has an appointment today 07/27/24 with Deyanira and is asking if can get a cortisone injection today at new pt appointment? Pt states is in a lot of pain. Please advise Best time of day caller can be reached: AM Patient advised that office/PCP has 24-48 business hours to return their call: N/A documented in this encounter [facility] [employer] 07-27-2024 Telephone encounter Note Called pt and received voice mail. Left pt a voice messages stating we do not do spine injections but this can be discussed during his appointment this afternoon. [facility] [employer] 07-27-2024 Telephone encounter Note Please let the patient know that we do not do spine injections. We can discuss this more at his appointment this afternoon. [facility] [employer] 07-27-2024 Telephone encounter Note Name of caller: Titi Contact phone number: [phone] Relationship to Patient: patient Provider: Deyanira Practice: Ortho Chief Complaint/Reason for Call: Pt has an appointment today 07/27/24 with Deyanira and is asking if can get a cortisone injection today at new pt appointment? Pt states is in a lot of pain. Please advise Best time of day caller can be reached: AM Patient advised that office/PCP has 24-48 business hours to return their call: N/A [facility] 07-27-2024 History of Presen t illness Narrative [facility] [place] [address] [place] [address] [place] [id number] Dept: [phone] Dept 07/27/2024 Chief Complaint Patient presents with Post-op IPO: RTHA SX:05/27 Subjective: Sophie is approximately 2 month(s) out from a right total hip arthroplasty. Pain is mild. Patient has noted issues with: nothing out of the ordinary. Assistive device for ambulation: none. Pre-operative symptoms are improved. The patient is able to walk 1-2 blocks and is able to use stairs. Patient denies calf pain or unusual swelling. ED visit since surgery: Yes. 06/23/24. Hospital re-admit since surgery: No Complication since surgery: Yes. Cellulitis . Review of Systems Objective: There were no vitals taken for this visit. Ortho Exam [place] well today and non-toxic. Gait is antalgic. Incision healing well, no significant drainage, no dehiscence. Skin otherwise is warm, dry and intact. Swelling is mild. Hip ROM is smooth and non-tender with no signs or symptoms of instability. Sophie remains neuro intact to the operative leg. No evidence of DVT seen on physical exam. Negative Nayely's sign. No cords or calf tenderness. The patient does not appreciate a leg length discrepancy. XRAYS: 07/27/24 images obtained by outside radiology department independently reviewed by myself today in office. Indication: Status post right total hip arthroplasty. Exam Ordered: Radiographs taken today include an anteroposterior pelvis, an AP, and lateral view of the right proximal femur including the hip joint. Details of Examination: Exam show a well fixed, well positioned hip arthroplasty with no evidence of wear, osteolysis, fracture, or loosening. Impression: Status post right total hip arthroplasty, implant in good position with no abnormality. Assessment 1. S/P total right hip arthroplasty 2. Primary osteoarthritis of right hip 3. Trochanteric bursitis of right hip Plan Sophie will continue with WBAT and therapy exercises. I would like to check the patient back in 3 month(s) with a low AP pelvis and lateral of the proximal femur. He is doing well since surgery. He is still working with home PT and progressing well, using no cane and reciprocating steps on the stairs. He does have pain laterally in soft tissue consistent with bursitis. Discuss NSAIDs and stretches, too early to consider troch bursa injection but discussed that if symptoms persist can do this is a month or two. Post op was complicated by a fall causing a laceration on his left extremity that subsequently caused cellulitis. This laceration is healing well and being managed by the wound team. We reviewed signs and symptoms of common post-operative issues including infection. We reviewed the need for prophylaxis with dental or other procedures. He will call and return sooner for questions, issues, or concerns. Maria G Jarvis PA-C Orthopedic Surgery Hip and Knee Reconstruction [facility] 07/27/2024 at 8:36 AM. documented in this encounter [facility] 07-19-2024 History of Presen t illness Narrative Review of Systems Constitutional: Positive for appetite change and fatigue. Negative for unexpected weight change. HENT: Positive for hearing loss. Negative for dental problem and trouble swallowing. Eyes: Negative for visual disturbance. Gastrointestinal: Positive for constipation and diarrhea. Genitourinary: Positive for difficulty urinating and dysuria. Musculoskeletal: Positive for arthralgias, back pain and gait problem. Neurological: Positive for tremors, speech difficulty and weakness. Psychiatric/Behavioral: Positive for dysphoric mood. Negative for agitation, confusion, hallucinations and sleep disturbance. The patient is not nervous/anxious. Images from the original note were not included. [facility] [place] [facility] [place] [facility] [address] Dept: [phone] Dept Loc: [phone] Visit type: [facility] Initial Assessment Visit Date: 07/19/2024 Reason for Visit: Memory Loss Assessment and Plan 1. Memory loss - Vitamin B12 - Folate - CT head wo IV contrast 2. Visual hallucinations 3. Tremor of both hands 4. Depression with anxiety 5. Vitamin D deficiency - Vitamin D Deficiency Screening (Vit D 25) - Mental status change with cognitive deficits in the following areas: Visuospatial/executive function, attention, language, abstraction, delayed recall (MIS 6), orientation which have been slowly progressive over time with subsequent impairment in function. History and exam are concerning for Mild stage unspecified dementia. Also having visual hallucinations and tremors that are concerning for LBD vs Parkinson's disease. Poorly controlled depression and anxiety also likely impacting cognition. Have ordered labs and head CT to complete the assessment- will review results at [facility]. Pt is a good candidate for neuropsychological testing given degree of difficulty on testing but has much insight into his own deficits. Will discuss ordering this at [facility]. Visual hallucinations- Etiology unclear. Seeing relatives and flickering lights in the home. Not having vivid hallucinations from his descriptions though. Still concerning for LBD. Hallucinations not causing safety issues or pt distress. Will discuss if neuropsych testing is appropriate next step to clarify diagnosis at [facility]. Tremors- Chronic issue that has gotten progressively. Has some other symptoms concerning for Parkinson's disease vs LBD (orthostasis, h/o falls and poor balance, visual hallucinations). Can discuss trial of Sinemet at [facility]. Depression/anxiety- Not well controlled. Likely contributing to memory loss. Currently on buproprion XL 150 mg daily, Buspar 10 mg twice daily, sertraline 50 mg daily, and low dose Xanax 1 mg nightly for insomnia. Pt does get discouraged about his memory loss, which causes worsening depression/anxiety. Will discuss medication adjustments vs next steps at [facility]. Vitamin D deficiency- On daily multivitamin currently. High risk for vitamin deficiencies in general due to h/o weight loss surgery. Check vitamin D level today. Await results before recommending supplementation. Follow up in about 6 weeks (around 08/30/2024) for summary visit. Subjective HPI: Sophie Hicks is a 58 y.o. male who presents to the [facility] for a comprehensive geriatric assessment. The patient is new to me. Referred to office for memory loss. History obtained from caregiver(s): Pt is here alone. 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 to do work that he had done the day before and had forgotten that he already did it - has to remind him of appts - has taken knobs off stove due to h/o safety concerns - sets up pill box and he takes them without prompting - Was having trouble managing company finances about 1 year ago, started to help him - Having visual hallucinations, seeing family members in his home Severity (as seen by the provider based on caregiver history): moderate, Duration- symptoms started over the past year, Timing- slowly progressive, all day everyday, no difference whether morning or night, cognition fluctuates day to day: some good days, some bad days, Context- (give details of any yes answers) *history of stroke- Yes - mini stroke a couple years ago, symptoms- was at physician office and he had facial asymmetry, was sent to ED , *history of head trauma- Yes - has had some falls when he hit his head, played 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 - No *Hearing Loss? - Yes - has trouble hearing *Hearing Aids? -no Associated signs and symptoms- *delusions or hallucinations- Yes - not vivid visual hallucinations but is able to identify that a family member is walking past him (in his peripheral vision), only happening at his home, can happen any time of the day, usually sees his mom, grandmother, or 's late mom, lights go on and off ? *paranoia- Yes - feels generally worried *Trouble sleeping? Yes - trouble falling asleep at night more recently without taking his Xanax, the bottle gotten thrown out by mistake, was sleeping well prior when he was taking Xanax, has been Xanax for about 1 year, tried other sleep medications but had hangover when he woke up in the morning *Any over the counter sleep or allergy medications? No *Symptoms of REM-related sleep disorder- Does he/she appear to act out their dreams while sleeping (punch or flail arms, shout or scream? no Mood: says it's touchy. He feels his mood is mostly good. Gets aggravated sometimes. Mobility: Has had some falls. Feels dizzy/lightheaded with standing. Using a cane or walker. Has resting, intermittent tremors in bilateral hands for a couple years. Worse with movement. Can make the tremors stop if he's using his cane or puts his hands together. Doesn't feel it's hard to start movements. Currently has trouble getting out of chair or starting to walk but more due to R hip being sore. H/o feeling lightheaded and dizzy with standing. Has lost his balance and fallen before. Appetite: Alright. Intentionally trying to lose weight, trying to get down to about 240#. Working with weight mgmt. Hearing Screen: HHIE-S: Able to identify : yes Current events: Current President? Saira Reviewed progress notes completed by GIOVANNI (ROS)and social work. Allergies Allergen Reactions Iodinated Contrast Media Other reaction(s): Kidney disease Nsaids Other reaction(s): Kidney disease Due to Kidney Disease Current Outpatient Medications Medication Sig Dispense Refill acetaminophen (Tylenol 8 Hour) 650 MG ER tablet Take 1 tablet (650 mg) by mouth every 8 hours as needed for mild pain (1-3) or moderate pain (4-6) (take as needed for pain). Do not crush, chew, or split. 90 tablet 0 ALPRAZolam (Xanax) 1 MG tablet Take 1 mg by mouth Nightly. aspirin (ASPIR) 81 MG EC tablet Take 1 tablet (81 mg) by mouth 2 times daily. Take 2 times a day for 30 days. This is for blood clot prevention. 60 tablet 0 atorvastatin (Lipitor) 80 MG tablet Take 80 mg by mouth Nightly. baclofen (Lioresal) 10 MG tablet Take 10 mg by mouth 2 times daily. buPROPion XL (Wellbutrin XL) 150 MG 24 hr tablet Take 150 mg by mouth daily. busPIRone (Buspar) 10 MG tablet Take 10 mg by mouth 2 times daily. dicyclomine (Bentyl) 10 MG capsule Take 10 mg by mouth in the morning and 10 mg at noon and 10 mg in the evening and 10 mg before bedtime. finasteride (Proscar) 5 MG tablet TAKE 1 TABLET BY MOUTH ONCE DAILY *DO NOT CRUSH, CHEW AND/OR DIVIDE 30 tablet 10 Fluticasone-Salmeterol (Advair Diskus) 250-50 MCG/ACT aerosol powder Inhale 1 puff 2 times daily. gabapentin (Neurontin) 600 MG tablet Take 600 mg by mouth 3 times daily. levothyroxine (Synthroid, Levoxyl) 75 MCG tablet Take 1 tablet by mouth every morning (before breakfast). lidocaine (Lidoderm) 5 % patch Apply 1 patch topically daily. Multiple Vitamins-Minerals (MULTIVITAMIN ADULTS 50+ PO) Take 1 tablet by mouth daily. ondansetron (Zofran) 4 MG tablet TAKE 1 TABLET BY MOUTH 3 TIMES DAILY NEEDED FOR NAUSEA & VOMITING NEEDED pantoprazole (ProtoNix) 40 MG EC tablet Take 1 tablet (40 mg) by mouth daily. 30 tablet 5 psyllium (Metamucil) 58.6 % powder Take 5.12 g (3 g of fiber) by mouth 2 times daily. 283 g 0 sertraline (Zoloft) 50 MG tablet Take 50 mg by mouth daily. tadalafil (Cialis) 5 MG tablet Take 1 tablet (5 mg) by mouth daily. 90 tablet 3 tamsulosin (Flomax) 0.4 MG 24 hr capsule TAKE 1 CAPSULE BY MOUTH ONCE DAILY 90 capsule 3 tiZANidine (Zanaflex) 2 MG tablet Take 2 mg by mouth 2 times daily as needed. traMADol (Ultram) 50 MG tablet every 8 hours. Ventolin HFA 108 (90 Base) MCG/ACT inhaler Inhale 2 puffs every 6 hours as needed. No current facility-administered medications for this visit. 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 Back pain Benign essential HTN 01/29/2015 Blood circulation, collateral CAD (coronary artery disease) mild - dx on cath - neg stress Cerebral artery occlusion with cerebral infarction (HCC) patient states not ever confirmed as stoke Chronic kidney disease COPD (chronic obstructive pulmonary disease) (HCC) COVID-19 05/03 COVID-19 vaccine series completed 09/25/2020 Moderna COVID-19 vaccine series completed 12/04/2020 BOOSTER CS (cervical spondylosis) 12/25/2004 CERVICAL SPINE DJD Depression Difficulty sleeping Dizziness GERD (gastroesophageal reflux disease) History of colonic polyps 06/21/2013 repeat 2019 Hyperlipidemia Hypothyroidism Insomnia 08/15/2014 Joint pain, hip Joint pain, knee Memory difficulties Motion sickness 05/24/2024 Muscle weakness Peripheral polyneuropathy 09/30/2020 Rheumatoid arthritis (HCC) Shortness of breath at rest Sleep apnea resolved with weight loss Snoring SOBOE (shortness of breath on exertion) Tuberculosis Type 2 diabetes mellitus (HCC) 03/19/2021 resolved after weight loss Social History Tobacco Use Smoking status: Never Smokeless tobacco: Never Substance Use Topics Alcohol use: Never Past Surgical History: Procedure Laterality Date ABDOMINAL SURGERY APPENDECTOMY BARIATRIC SURGERY 12/03/2021 Dr. Trevino CARDIAC CATHETERIZATION 12/17/2013 NORMAL CORONARY ARTERIES AND LVEF. COLONOSCOPY COLONOSCOPY 2020 CYSTOSCOPY 10/26/2020 CYSTOSCOPY 11/19/2020 CYSTOSCOPY 09/16/2023 EGD (HISTORICAL) 03/02/2023 JOINT REPLACEMENT NECK SURGERY Posterior cervical fusion PANNICULECTOMY (HISTORICAL) 09/23/2023 PROSTATE SURGERY Lapband ROTATOR CUFF REPAIR Bilateral 2023 both surgeries UPPER GASTROINTESTINAL ENDOSCOPY 01/24/2021 Dr. Cabello Family History Problem Relation Name Age of Onset Cancer Mother Kerri hicks Osteoarthritis Mother eKrri hicks Lung cancer Mother Kerri hicks smoker Dementia Mother Kerri hicks Accidental Father Titi hicks Arthritis Father Titi hicks Asthma Father Titi hicks Depression Father Titi hicks Hearing loss Father Titi hicks Kidney disease Father Titi hicks Stroke Father Titi hicks Vision loss Father Titi hicks Coronary artery disease Other Family Status Relation Name Status Mother Kerri hicks Father Titi hicks Sister Alive Brother Alive MGF PGM PGF Other No partnership data on file Objective Vitals: 07/19/24 0925 07/19/24 0942 BP: 112/75 94/68 BP Location: Left arm Left arm Patient Position: Sitting Standing BP Cuff Size: Large adult Large adult Pulse: 87 88 Weight: 256 lb 12.8 oz (116 kg) Height: 6' (1.829 m) Wt Readings from Last 3 Encounters: 07/19/24 256 lb 12.8 oz (116 kg)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 needs to go home on home IV antibiotic infusion when discharged. Problem: Knowledge Deficit Goal: Patient/family/caregiver demonstrates understanding of disease process, treatment plan, medications, and discharge instructions Outcome: Progressing Problem: Potential for Compromised Skin Integrity Goal: Skin Integrity is Maintained or Improved Outcome: Progressing S/W, SDOH SDOH positive for Advance Directives. I did visit patient in room. I did provide patient with HCPOA paperwork. Patient appreciative of visit and noted he will take paperwork home with him to review. Care Management Progress Note Patient remains on 4S today LLE pain/swelling, with ID following. Continued IV ATBX Dapto. Following cxs. Sutures intact. Pain control. Tolerating diet. Waiting on final ID recs. Declined SNF. Active with [facility]. CM will continue to follow for discharge planning. Length of Stay (Days): 4 GMLOS: 3.1 Spoke to patient today regarding discharge planning. We went over PT recommendations. Patient declined SNF LOC. He is agreeable to resume HHC once he gets home and then will follow up with OP therapy in [place]. I called and LM on confidential line for spouse Ellie. CM will continue to follow for discharge planning. Patient is currently active with [facility]. The patients current certification period will on 07/27/2024. The patient is currently receiving SN, PT services through the agency. Video Rental Clerk to continue to follow. Problem: Knowledge Deficit Goal: Patient/family/caregiver demonstrates understanding of disease process, treatment plan, medications, and discharge instructions Outcome: Progressing Flowsheets (Taken 06/24/2024115) Patient/family/caregiver demonstrates understanding of disease process, treatment plan, medications, and discharge instructions: Provide teaching at level of understanding Complete learning assessment and assess knowledge base Provide teaching via preferred learning methods Problem: Potential for Compromised Skin Integrity Goal: Skin Integrity is Maintained or Improved Outcome: Progressing Flowsheets (Taken 06/24/2024115) Skin integrity is maintained or improved: Assess and monitor skin integrity Relieve pressure to bony prominences Collaborate with interdisciplinary team and initiate plans and interventions as needed Keep skin clean and dry Encourage use of lotion/moisturizer on skin Collaborate with wound, ostomy, and continence nurse Identify patients at risk for skin breakdown on admission and per policy Goal: Nutritional status is improving Outcome: Progressing Flowsheets (Taken 06/24/2024115) Nutritional status is improving: Monitor and assess patient for malnutrition (ex- brittle hair, bruises, dry skin, pale skin and conjunctiva, muscle wasting, smooth red tongue, and disorientation) Monitor patient's weight and dietary intake as ordered or per policy Utilize nutrition screening tool and intervene per policy Determine patient's food preferences and provide high-protein, high-caloric foods as appropriate Encourage patient to take dietary supplement as ordered Collaborate with clinical electrode cleaner Include patient/family/caregiver in decisions related to nutrition Problem: Urinary Incontinence Goal: Perineal skin integrity is maintained or improved Outcome: Progressing Flowsheets (Taken 06/24/2024115) Perineal skin integrity is maintained or improved: Assess genitourinary system, perineal skin, labs (urinalysis), and history of incontinence to include past management, aggravating, and alleviating factors Keep skin clean and dry Apply skin protectant documented in this encounter [facility] 06-30-2024 Note Formatting of this n ote is different from the original. Start PACC Note Home Health Referral Educated patient on Home Care and services available. Patient offered choice of available HHC and agreeable to SN, PT services with [facility]. Care Types: None Isolation Precautions: No active isolations Social Determinates of Health: Tobacco Use: Low Risk (06/18/2024) Patient History Smoking Tobacco Use: Never Smokeless Tobacco Use: Never Passive Exposure: Not on file Social History Substance and Sexual Activity Alcohol Use Never Social History Substance and Sexual Activity Drug Use Never Does the patient have any financial resource strain? No Does the patient have any food insecurities? No Does the patient have any housing instabilities? No If any of the above is noted as yes - consider a DIRECTOR CARD evaluation once the patient returns home. START PATIENT REGISTRATION INFORMATION Order Information Order Signing Physician: No att. providers found Service Ordered RN ?: Yes Service Ordered PT ?: Yes Service Ordered OT ?: No Service Ordered ST ?: No Service Ordered DIRECTOR CARD?:No Service Ordered SPECIAL EDUCATION TEACHING ASSISTANT?: No Following Physician: WILIAM FERNANDEZ MD Following Physician Overseeing Physician: WILIAM FERNANDEZ MD (Required for Residents only) Agreeable to Follow? Yes Date/Time of Call 06/30/24 12:43 PM, Spoke with: HIRAM Care Coordination Same Day SOC?: No Primary Care Physician: WILIAM FERNANDEZ MD Primary Care Physician Primary Care Physician Address: [address] [place] [id number] Visit Instructions: N/A Service Discharge Location Type: Home with Home Care Service Facility Name: N/A Service Floor Facility: N/A Service Room No: N/A Demographics Patient Last Name: Kurt Patient First Name: Sophie Language/Communication Barrier: SHAUN Service Address: [address] [place] [address] Service City: [facility] ST: [place] Service ZIP: [address] Service Other phone numbers: Telephone Information: Emergency Contact: Extended Emergency Contact Information Primary Emergency Contact: Ellie Hicks Relation: Spouse Motor Builder Assembler needed? No Admission Information Admit Date: 06/23/2024 Patient status at discharge: Inpatient Admitting Diagnosis: Pain and swelling of left lower leg [M79.662, M79.89] Caregiver Information Caregiver First Name: Ellie Caregiver Last Name: Kurt Caregiver Relationship to Patient spouse Caregiver Caregiver Notes: N/A [employer] List HIGHTECH: HI TECH - WOUND CARE Orders: see h/c order Wound following physician: Adrian DUFF Last time wound care completed?: 06/30/2024 Supplies sent home?: Yes How many days are covered with supplies?: 7 Days Teachable Caregiver Teachable Caregiver First Name: Ellie Teachable Caregiver Last Name: Kurt Teachable Caregiver Relationship to Patient: spouse Teachable Caregiver Teachable Caregiver Notes: N/A Teachable Caregiver available for SOC visit?: Yes Teachable Caregiver agreeable to provide skilled HITECH care per physician's orders?: Yes HIGHTECH: HI TECH - NEXT DAY REQUEST Requests Next Available SOC/HIRAM END PATIENT REGISTRATION INFORMATION Pt Home Health goal home COVID Status 1. Do you have any upper respiratory symptoms (cough, SOB, Fever)? No 2. Have you been exposed to anyone with COVID-19 Virus? No Answer only if pending or positive for COVID-19? 1. Agreeable to wear PPE at each visit? NA 2. Is the hospital supplying them with PPE upon Discharge? NA Start PACC Summary General Report/ Additional Comments HIRAM Initially patient admitted for left lower extremity cellulitis, infected sutured laceration, during hospital patient was treated with daptomycin and ertapenem-infectious disease was managing antibiotics. General surgery came and evaluated the wound remove the sutures looks clean no signs of abscess or drainage antibiotics changed to Bactrim to finish the course of prescription written Discharge Date: 06/30/2024 Referral Source-PACC: (Hospital/Unit): [facility] / [id number] B End PACC Note [facility] 06-30-2024 Note Formatting of this n ote is different from the original. Start PACC Note Home Health Referral Educated patient on Home Care and services available. Patient offered choice of available HHC and agreeable to SN, PT services with [facility]. Care Types: None Isolation Precautions: No active isolations Social Determinates of Health: Tobacco Use: Low Risk (06/18/2024) Patient History Smoking Tobacco Use: Never Smokeless Tobacco Use: Never Passive Exposure: Not on file Social History Substance and Sexual Activity Alcohol Use Never Social History Substance and Sexual Activity Drug Use Never Does the patient have any financial resource strain? No Does the patient have any food insecurities? No Does the patient have any housing instabilities? No If any of the above is noted as yes - consider a DIRECTOR CARD evaluation once the patient returns home. START PATIENT REGISTRATION INFORMATION Order Information Order Signing Physician: No att. providers found Service Ordered RN ?: Yes Service Ordered PT ?: Yes Service Ordered OT ?: No Service Ordered ST ?: No Service Ordered DIRECTOR CARD?:No Service Ordered SPECIAL EDUCATION TEACHING ASSISTANT?: No Following Physician: WILIAM FERNANDEZ MD Following Physician Overseeing Physician: WILIAM FERNANDEZ MD (Required for Residents only) Agreeable to Follow? Yes Date/Time of Call 06/30/24 12:43 PM, Spoke with: HIRAM Care Coordination Same Day SOC?: No Primary Care Physician: WILIAM FERNANDEZ MD Primary Care Physician Primary Care Physician Address: [address] [place] [address] / [facility] [id number] Visit Instructions: N/A Service Discharge Location Type: Home with Home Care Service Facility Name: N/A Service Floor Facility: N/A Service Room No: N/A Demographics Patient Last Name: Kurt Patient First Name: Sophie Language/Communication Barrier: SHAUN Service Address: [address] [place] [address] Service City: [facility] ST: [place] Service ZIP: [address] Service Other phone numbers: Telephone Information: Emergency Contact: Extended Emergency Contact Information Primary Emergency Contact: Ellie Hicks Relation: Spouse Motor Builder Assembler needed? No Admission Information Admit Date: 06/23/2024 Patient status at discharge: Inpatient Admitting Diagnosis: Pain and swelling of left lower leg [M79.662, M79.89] Caregiver Information Caregiver First Name: Ellie Caregiver Last Name: Kurt Caregiver Relationship to Patient spouse Caregiver Caregiver Notes: N/A [employer] List HIGHTECH: HI TECH - WOUND CARE Orders: see h/c order Wound following physician: Adrian DUFF Last time wound care completed?: 06/30/2024 Supplies sent home?: Yes How many days are covered with supplies?: 7 Days Teachable Caregiver Teachable Caregiver First Name: Ellie Teachable Caregiver Last Name: Kurt Teachable Caregiver Relationship to Patient: spouse Teachable Caregiver Teachable Caregiver Notes: N/A Teachable Caregiver available for SOC visit?: Yes Teachable Caregiver agreeable to provide skilled HITECH care per physician's orders?: Yes HIGHTECH: HI TECH - NEXT DAY REQUEST Requests Next Available SOC/HIRAM END PATIENT REGISTRATION INFORMATION Pt Home Health goal home COVID Status 1. Do you have any upper respiratory symptoms (cough, SOB, Fever)? No 2. Have you been exposed to anyone with COVID-19 Virus? No Answer only if pending or positive for COVID-19? 1. Agreeable to wear PPE at each visit? NA 2. Is the hospital supplying them with PPE upon Discharge? NA Start PACC Summary General Report/ Additional Comments HIRAM Initially patient admitted for left lower extremity cellulitis, infected sutured laceration, during hospital patient was treated with daptomycin and ertapenem-infectious disease was managing antibiotics. General surgery came and evaluated the wound remove the sutures looks clean no signs of abscess or drainage antibiotics changed to Bactrim to finish the course of prescription written Discharge Date: 06/30/2024 Referral Source-PACC: (Hospital/Unit): [facility] / [id number] B End PACC Note [facility] 06-30-2024 Note [facility] 06-30-2024 Hospital course Narrative Discharge Summary Sophie Hicks : 1965 ADMIT DATE: 06/23/2024 DISCHARGE DATE: 06/30/2024 PRIMARY CARE PHYSICIAN: WILIAM FERNANDEZ VISIT STATUS: Admission CODE STATUS: Full Code DISCHARGE DIAGNOSES: Principal Problem: Pain and swelling of left lower leg Left lower extremity cellulitis. Infected sutured laceration anterior left lower leg. Thrombocytopenia. History of: Status post a right total hip arthroplasty 05/28. Mild coronary artery disease-angiogram [address] [facility]. Bariatric surgery in 2021 COPD-no signs of exacerbation Hypertension Hyperlipidemia Hypothyroidism Chronic kidney disease stage II. Gastroesophageal reflux disease BPH. Depression/anxiety. Obesity. TIA. HOSPITAL COURSE: Initially patient admitted for left lower extremity cellulitis, infected sutured laceration, during hospital patient was treated with daptomycin and ertapenem-infectious disease was managing antibiotics. General surgery came and evaluated the wound remove the sutures looks clean no signs of abscess or drainage antibiotics changed to Bactrim to finish the course of prescription written. Continue with care. After getting clearance from all the consultants discharged patient home in stable condition. CONSULTANTS: General Surgery. Infectious disease. Abdominal: General: Bowel sounds are normal. There is no distension. Palpations: Abdomen is soft. Tenderness: There is no abdominal tenderness. Musculoskeletal: General: Swelling improved Cervical back: Normal range of motion. Left lower leg: Edema present. Skin: General: Skin is dry. Capillary Refill: Capillary refill takes less than 2 seconds. Findings: Erythema present. Neurological: General: No focal deficit present. Mental Status: He is alert and oriented to person, place, and time. Psychiatric: Mood and Affect: Mood normal. DISCHARGE MEDICATIONS: Medication List START taking these medications sulfamethoxazole-trimethoprim 800-160 MG tablet Commonly known as: Bactrim DS Take 2 tablets by mouth every 12 hours for 8 doses. CHANGE how you take these medications DSS 100 MG capsule Take 1 capsule (100 mg) by mouth 2 times daily for 10 days. What changed: additional instructions finasteride 5 MG tablet Commonly known as: Proscar TAKE 1 TABLET BY MOUTH ONCE DAILY *DO NOT CRUSH, CHEW AND/OR DIVIDE What changed: See the new instructions. ondansetron 4 MG tablet Commonly known as: Zofran What changed: Another medication with the same name was removed. Continue taking this medication, and follow the directions you see here. oxyCODONE-acetaminophen 5-325 MG tablet Commonly known as: Percocet Take 1 tablet by mouth every 8 hours as needed for severe pain (7-10) for up to 5 days. What changed: how much to take how to take this reasons to take this CONTINUE taking these medications acetaminophen 650 MG ER tablet Commonly known as: Tylenol 8 Hour Take 1 tablet (650 mg) by mouth every 8 hours as needed for mild pain (1-3) or moderate pain (4-6) (take as needed for pain). Do not crush, chew, or split. Advair Diskus 250-50 MCG/ACT aerosol powder Generic drug: Fluticasone-Salmeterol ALPRAZolam 1 MG tablet Commonly known as: Xanax aspirin 81 MG EC tablet Commonly known as: ASPIR Take 1 tablet (81 mg) by mouth 2 times daily. Take 2 times a day for 30 days. This is for blood clot prevention. atorvastatin 80 MG tablet Commonly known as: Lipitor baclofen 10 MG tablet Commonly known as: Lioresal buPROPion XL 150 MG 24 hr tablet Commonly known as: Wellbutrin XL busPIRone 10 MG tablet Commonly known as: Buspar dicyclomine 10 MG capsule Commonly known as: Bentyl gabapentin 600 MG tablet Commonly known as: Neurontin levothyroxine 75 MCG tablet Commonly known as: Synthroid, Levoxyl lidocaine 5 % patch Commonly known as: Lidoderm MULTIVITAMIN ADULTS 50+ PO pantoprazole 40 MG EC tablet Commonly known as: ProtoNix Take 1 tablet (40 mg) by mouth daily. psyllium 58.6 % powder Commonly known as: Metamucil Take 5.12 g (3 g of fiber) by mouth 2 times daily. sertraline 50 MG tablet Commonly known as: Zoloft tadalafil 5 MG tablet Commonly known as: Cialis Take 1 tablet (5 mg) by mouth daily. tamsulosin 0.4 MG 24 hr capsule Commonly known as: Flomax TAKE 1 CAPSULE BY MOUTH ONCE DAILY tiZANidine 2 MG tablet Commonly known as: Zanaflex traMADol 50 MG tablet Commonly known as: Ultram Ventolin HFA 108 (90 Base) MCG/ACT inhaler Generic drug: albuterol STOP taking these medications fluticasone 50 MCG/ACT nasal spray Commonly known as: Flonase Where to Get Your Medications These medications were sent to [address] [address] finasteride 5 MG tablet These medications were sent to [facility] [address] [place] [id number] Hours: Thursday to Thursday 10 am to 6 pm aspirin 81 MG EC tablet DSS 100 MG capsule oxyCODONE-acetaminophen 5-325 MG tablet sulfamethoxazole-trimethoprim 800-160 MG tablet DIET: Adult diet Regular ACTIVITY: Up with assist COMPLEXITY OF FOLLOW UP: [] Moderate Complexity: follow up within 7-14 calendar days ([address]) [] Severe Complexity: follow up within 7 calendar days ([address]) FOLLOW UP TESTING, PENDING RESULTS OR REFERRALS AT TRANSITIONAL CARE VISIT: [] Yes [] No DISPOSITION: Home with Home Health Care FACILITY/HOME CARE AGENCY NAME: Follow up with [facility] [address] [address] on INSTRUCTIONS TO MA/SW: Please call patient on day after discharge (must document patient contacted within 2 business days of discharge). FOLLOW UP QUESTIONS FOR MA/SW: 1. Did you get medications filled and taking them as instructed from discharge? 2. Are you following your discharge instructions from your hospital stay? 3. Please confirm patient is scheduled for a follow up appointment within the above time frame. DISCHARGE TIME: > 30 minutes SIGNED: Khanh Lee MD 06/30/2024, 11:24 AM documented in this encounter [facility] 06-30-2024 Plan of care note Problem: Knowledge Deficit Goal: Patient/family/caregiver demonstrates understanding of disease process, treatment plan, medications, and discharge instructions Outcome: Progressing Problem: Potential for Compromised Skin Integrity Goal: Skin Integrity is Maintained or Improved Outcome: Progressing [facility] 06-29-2024 Nurse Note Patient report of redness at the groin area, assessed and noted moisture excoriation on bilateral groin and scrotal area,Dr Castillo notified via secure chat did put an order for nystatin cream.Medication applied on the affected area. [facility] 06-29-2024 Nurse Note Patient report of redness at the groin area, assessed and noted moisture excoriation on bilateral groin and scrotal area,Dr Castillo notified via secure chat did put an order for nystatin cream.Medication applied on the affected area. Lab called, specimen from left leg culture is missing. soil field technician states will keep looking for it, but was told to re-recollect. Dr. Salomon and Dr. Boss aware. Wound Care consulted for Pressure Injury Prevention. Pt's Pb score= 17 on 06/23 Pt's pressure points assessed. Pt's Heels, Buttocks/coccyx, Back, Elbows, Occiput and ears all intact. Pt turned independently for posterior assessment. Pt able to move lower extremities well despite pain in left leg. Pt with noted sutures to left oropeza, see media tab for photos. Pt requested sacral foam not be applied at this time d/t wanting to get a bath later this morning. Prevention Measures in place, including: Pillows/wedges, Heels elevated off bed on pillows, Sacral foam (obtained, at bedside), Zinc/Moisture Barrier ointment (obtained), Waffle chair cushion (obtained for pt). Skin Care precaution order set in place. Dietitian consult order placed d/t wound (left leg). PT/OT consult in place. Will continue to follow pt. Please secure chat for any questions or concerns. Michelle Valero RN documented in this encounter [facility] 06-29-2024 History of Presen t illness Narrative Images from the original note were not included. PHYSICAL THERAPY [facility] Treatment Note Name/MRN: Titi Hicks ([id number]) Date of : 1965 Age: 58 y.o. Room/Bed: B4458/B4458 B Visit #: 2 out of 7 visits Discharge Recommendation: Home with Home health PT Equipment Needed: No Prior Level of Function Prior Level of ADL Function: Independent Prior Level of Mobility: Independent; Device: Front wheeled walker Prior Level of Transfers: Independent Assessment Pt demo much improved mobility, demo bed mobility Mod I, transfer to FWW Mod I and ambulate extended distance SUP. He demo good adherence to precautions and good safety awareness, discussed changing rec to [facility], he agrees. Subjective Per RN pt okay for therapy, is pleasant and agree to PT Pain: RN managing pain. 0-10 pain scale: 6/10 Location: LLE Medical Precautions: No active isolations Proper PPE donned/doffed in accordance with facility standards. Fall Risk: Hanson Fall Risk Score: 70 (Low Risk) Hanson Fall Risk Score: 70 (High Risk) Precautions/Restrictions: Right LE Weight Bearing: Weight Bearing As Tolerated Hip Precautions: Anterior Hip Precautions Overall Cognitive Status: WFL Overall Orientation Status: Oriented x4 Family/Caregiver Present: none Objective Bed Mobility Supine to sit: Modified Independent, pt denies dizziness, demo bed mobility Mod I with no bed rails. He demo good adherence to precautions Transfers/Mobility Sit to stand: Modified Independent, pt transfer to FWW Mod I, demo good hand and foot placement and upright trunk. No LOB Stand to sit: Modified Independent Device(s) used: Front wheeled walker Ambulation Ambulation 1 Assistive device(s) used: Front wheeled walker Assist level: Supervision, pt ambulate with FWW and SUP, demo short reciprocal pattern with no LOB. He demo good walker management and adherence to precautions. Educated pt on benefits of continued mobility and recommended he ambulate with walker on unit with RN approval. He agrees. Distance (ft): ~600ft Quality of gait: No LOB, reciprocal stepping, slow destiney Plan Continue acute PT per plan of care. Safety/Education Safety Safety Devices in place: All fall risk precautions in place, call light within reach, left in bed, gait belt, patient at risk for falls, and nurse notified Restraints: No Education Education Given To: patient Education Provided: PT Role, PT Goals, Gait Training, Plan of Care, Precautions, Transfer Training, Energy Conservation, Equipment, Fall Prevention Education, Discharge Recommendations, and Benefits of Increasing Activity Education Method: Verbal Barriers to Learning: None Education Outcome: Verbalized Understanding and Demonstrated Understanding Outcome Measures AM-PAC AM-PAC Inpatient Mobility Raw Score (No Stairs) : 19 JH-HLM JH-HLM Score: Walked 250 ft or more (i.e. several laps on unit) Goals Patient Stated Goal: to go home Encounter Problems Encounter Problems (Active) Balance Patient will maintain dynamic standing balance for 3 minutes with SBA in order to demonstrate decreased risk of falling. (Progressing) Start: 06/24/24 Expected End: 07/04/24 Exercise Patient will complete lower extremity exercises for 1-2 sets / 5-10 reps in order to improve strength and activity tolerance for mobility. (Not Addressed) Start: 06/24/24 Expected End: 07/04/24 Mobility Patient will ambulate 100 feet with SBA and least restrictive device in order to improve safety and independence with mobility. (Completed) Start: 06/24/24 Expected End: 07/04/24 Resolved: 06/29/24 Updated to: Patient will ambulate 100 feet with Mod I and least restrictive device in order to improve safety and independence with mobility. Update reason: progress Patient will ambulate 100 feet with Mod I and least restrictive device in order to improve safety and independence with mobility. (Progressing) Start: 06/29/24 Expected End: 07/04/24 Encounter Problems (Resolved) Transfers Patient will perform bed mobility with modified independence in order to improve independence and prepare for out of bed mobility. (Completed) Start: 06/24/24 Expected End: 07/04/24 Resolved: 06/29/24 Patient will complete functional transfer with least restrictive device with modified independence in order to prepare for ambulation. (Completed) Start: 06/24/24 Expected End: 07/04/24 Resolved: 06/29/24 Therapy Time Individual Co-treatment Time In 1424 Time Out 1436 Minutes 12 Timed Code Treatment Minutes: 10 Minutes (gait x1) Gustavo Mata PT Hospitalist Progress Note 06/29/2024 [id number]: Please page me ([phone]) for patient care issues. [phone]: Please page [facility] night Hospitalist for any issues. Subjective: Admit Date: 06/23/2024 PCP: WILIAM FERNANDEZ MD Room#: B4-586/J1-485 B Interval History: Patient is lying on the bed, continue to complain of left lower extremity pain. Denies any nausea or vomitings Tolerating p.o. diet. No other significant overnight issues. 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 Back pain Benign essential HTN 01/29/2015 Blood circulation, collateral CAD (coronary artery disease) mild - dx on cath - neg stress Cerebral artery occlusion with cerebral infarction (HCC) patient states not ever confirmed as stoke Chronic kidney disease COPD (chronic obstructive pulmonary disease) (HCC) COVID-19 05/03 COVID-19 vaccine series completed 09/25/2020 Moderna COVID-19 vaccine series completed 12/04/2020 BOOSTER CS (cervical spondylosis) 12/25/2004 CERVICAL SPINE DJD Difficulty sleeping Dizziness GERD (gastroesophageal reflux disease) History of colonic polyps 06/21/2013 repeat 2019 Hyperlipidemia Hypothyroidism Insomnia 08/15/2014 Joint pain, hip Joint pain, knee Memory difficulties Motion sickness 05/24/2024 Muscle weakness Peripheral polyneuropathy 09/30/2020 Rheumatoid arthritis (HCC) Shortness of breath at rest Sleep apnea resolved with weight loss Snoring SOBOE (shortness of breath on exertion) Type 2 diabetes mellitus (HCC) 03/19/2021 resolved after weight loss LABS: CBC: Recent Labs 06/27/24 0204 06/28/248 06/29/24 0127 WBC 4.0 5.8 5.5 RBC 3.92* 4.05* 3.79* HGB 11.1* 11.3* 10.5* HCT 34.4* 35.4* 32.9* MCV 87.8 87.4 86.8 RDW 12.9 12.7 12.8 PLT 150 178 167 BMP: Recent Labs 06/27/24 0204 06/28/24 0218 06/29/24 0127 NA 142 140 141 K 3.9 4.0 3.9 CL 106 105 106 CO2 26 25 23 BUN 21 20 18 CREATININE 1.09 1.04 1.05 GLUCOSE 98 101* 113* CALCIUM 8.7* 8.9 8.4* ANIONGAP 10 10 12 LIVER PROFILE: Recent Labs 06/27/24 0204 AST 25 ALT 9 BILITOT 0.4 ALKPHOS 85 PROT 6.5 PT/INR: No results for input(s): PROTIME, INR in the last 72 hours. CARDIAC ENZYMES: No results for input(s): TROPONINI in the last 72 hours. Procalcitonin: Lab Results Component Value Date PROCAL 0.06 06/29/2024 COVID-19 PCR: No results for input(s): COVID19 in the last 72 hours. Objective: Vitals: BP 130/73 Pulse 72 Temp 36.1 C (97 F) (Temporal) Resp 16 Ht 6' 2 (1.88 m) Wt 280 lb 14.4 oz (127 kg) SpO2 95% BMI 36.07 kg/m Pulse Ox: SpO2 Av % Min: 95 % Max: 99 % Supplemental O2: Constitutional: General: He is not in acute distress. Appearance: He is obese. HENT: Head: Normocephalic. Eyes: Extraocular Movements: Extraocular movements intact. Conjunctiva/sclera: Conjunctivae normal. Cardiovascular: Rate and Rhythm: Normal rate and regular rhythm. Pulses: Normal pulses. Heart sounds: Murmur heard. Pulmonary: Effort: Pulmonary effort is normal. Breath sounds: Normal breath sounds. Abdominal: General: Bowel sounds are normal. There is no distension. Palpations: Abdomen is soft. Tenderness: There is no abdominal tenderness. Musculoskeletal: General: Swelling, tenderness and signs of injury present. Cervical back: Normal range of motion. Left lower leg: Edema present. Skin: General: Skin is dry. Capillary Refill: Capillary refill takes less than 2 seconds. Findings: Erythema present. Neurological: General: No focal deficit present. Mental Status: He is alert and oriented to person, place, and time. Psychiatric: Mood and Affect: Mood normal. Medications: aspirin, 81 mg, Oral, Daily atorvastatin, 80 mg, Oral, Nightly buPROPion XL, 150 mg, Oral, Daily busPIRone, 10 mg, Oral, BID collagenase, , Topical, Daily DAPTOmycin (Cubicin) 750 mg in sodium chloride 0.9 % 50 mL IVPB, 750 mg, IntraVENous, q24h docusate sodium, 100 mg, Oral, BID enoxaparin, 40 mg, SubCUTAneous, Daily ertapenem, 1,000 mg, IntraVENous, q24h finasteride, 5 mg, Oral, Daily gabapentin, 600 mg, Oral, TID levothyroxine, 75 mcg, Oral, qAM AC Lidocaine, 1 patch, TransDERmal, Daily mometasone-formoterol, 2 puff, Inhalation, BID mupirocin, , Topical, BID pantoprazole, 40 mg, Oral, Daily tamsulosin, 0.4 mg, Oral, Daily Assessment Left lower extremity cellulitis. Infected sutured laceration anterior left lower leg. Thrombocytopenia. History of: Status post a right total hip arthroplasty 05/28. Mild coronary artery disease-angiogram [address] [facility]. Bariatric surgery in 2021 COPD-no signs of exacerbation Hypertension Hyperlipidemia Hypothyroidism Chronic kidney disease stage II. Gastroesophageal reflux disease BPH. Depression/anxiety. Obesity. TIA. Plan: Continue broad-spectrum antibiotics with daptomycin and ertapenem-infectious disease managing antibiotics. Repeated wound cultures on 06/26-positive for MRSA. As per ID recommendations, consulted general surgery for suture removal and abscess drainage Continuing wound care. Pain uncontrolled with oxycodone, restarted IV Dilaudid as needed due to significant pain from abscess Platelets improved-monitor with CBC. Other home medications reviewed and resumed appropriately. Follow-up CBC BMP ordered. PT OT evaluation. DVT prophylaxis: Lovenox daily. Disposition: General Surgery consult is pending. PT OT recommending [facility] facility. Possible discharge in next 2 to 3 days. -am labs, replace lytes prn -increase activity -DVT prophylaxis: [x] Lovenox [] Heparin [] SCDs [x] Encourage ambulation [] Already on Anticoagulation Advance Directive: Full Code Discharge planning: TBD Khanh Lee MD Division of Hospitalist Medicine Inpatient Medical Services/[facility] PAGER: [phone] Images from the original note were not included. [facility] - Infectious Diseases Attending Progress Note Subjective: Follow up for cellulitis of left lower leg and infected sutured laceration wound on anterior left lower leg due to MRSA. He was alert, laying on bed, felt well, redness and pain on left lower leg- decreased, pus drained from the left leg suture end, he denied much pain in right hip, appeared non-toxic. He was admitted on 06/23/24 via EMS after a fall at home, c/o left leg redness, burning pain and drainage from suture, weakness; denied any fevers, chills, chest pain, shortness of breath, nausea, vomiting, diarrhea, constipation, urinary complaints; in ED, vitals were ok, labs showed elevated crp 115.7 and esr 37, Lt leg Xray showed diffuse soft tissue swelling. He was given daptomycin and ertapenem. He underwent right total hip arthroplasty on 05/27/24, denied much pain in hip. He was examined; notes, labs, imaging were reviewed; treatment plan was discussed; clinical informations were documented in electronic record. Objective: Vitals: Patient Vitals for the past 24 hrs: BP Temp Temp src Pulse Resp SpO2 Weight 06/29/24 0739 130/73 -- -- 72 16 95 % -- 06/29/24 0500 -- -- -- -- -- -- 127 kg (280 lb 14.4 oz) 06/28/24 2051 119/59 36.1 C (97 F) Temporal 81 19 99 % -- Physical Exam Vitals and nursing note reviewed. Constitutional: General: He is not in acute distress. Appearance: He is obese. HENT: Head: Normocephalic and atraumatic. Mouth/Throat: Mouth: Mucous membranes are dry. Eyes: Extraocular Movements: Extraocular movements intact. Conjunctiva/sclera: Conjunctivae normal. Pupils: Pupils are equal, round, and reactive to light. Cardiovascular: Rate and Rhythm: Regular rhythm. Tachycardia present. Pulses: Normal pulses. Heart sounds: Murmur heard. Pulmonary: Effort: Pulmonary effort is normal. Breath sounds: Normal breath sounds. Abdominal: General: Bowel sounds are normal. There is no distension. Palpations: Abdomen is soft. Tenderness: There is no abdominal tenderness. There is no rebound. Musculoskeletal: General: Tenderness and signs of injury present. Normal range of motion. Cervical back: Neck supple. Right lower leg: No edema. Left lower leg: Edema present, wound sutures intact, + purulent drainage from the distal suture end, surrounding erythema, swelling, tender to touch, warm to touch. Skin: General: Skin is warm. Capillary Refill: Capillary refill takes less than 2 seconds. Findings: Erythema and lesion present. Neurological: General: No focal deficit present. Mental Status: He is alert and oriented to person, place, and time. Mental status is at baseline. Psychiatric: Mood and Affect: Mood normal. Labs: Recent Labs 06/27/24 0204 06/28/248 06/29/24 0127 NA 142 140 141 K 3.9 4.0 3.9 CL 106 105 106 CO2 26 25 23 BUN 21 20 18 CREATININE 1.09 1.04 1.05 GLUCOSE 98 101* 113* CALCIUM 8.7* 8.9 8.4* PROT 6.5 -- -- BILITOT 0.4 -- -- ALKPHOS 85 -- -- AST 25 -- -- ALT 9 -- -- PROCAL -- -- 0.06 Recent Labs 06/27/24 0204 06/28/248 06/29/24 0127 WBC 4.0 5.8 5.5 HGB 11.1* 11.3* 10.5* HCT 34.4* 35.4* 32.9* PLT 150 178 167 LYMPHOPCT 25.5 -- -- MONOPCT 8.9 -- -- BASOPCT 0.7 -- -- NEUTROABS 2.2 -- -- Procal 0.06 0.66 Crp 22.1 115.7 Esr 37 Micro: No results for input(s): COVID19 in the last 72 hours. Collected Updated Procedure Result Status 06/26/2024 1658 06/26/2024 2320 Aerobic culture with stain [[id number]] ESwab from Leg, Left Preliminary result Component Value Culture Culture in progress P Gram Stain Result Moderate Polymorphonuclear leukocytes per low power field P No organisms seen P Lines: PIV site ok Radiography/Echo/Other: CT abdomen pelvis wo IV contrast [[id number]] Collected: 06/23/24 1230 Order Status: Completed Updated: 06/23/24 1243 Narrative: Patient Name: SOPHIE HICKS : 1965 [facility]#: [id number] Exam Date/Time: 06/23/2024 11:19 Procedure: CT ABDOMEN PELVIS WO IV CONTRAST Ordering Provider: RODRIGUEZ AKASH Reason For Exam: fall, lower back pain EXAM: CT Abdomen and Pelvis Without Intravenous Contrast CLINICAL INDICATION: fall, lower back pain. Weakness and pain in the bilateral legs. TECHNIQUE: Axial computed tomography images of the abdomen and pelvis without intravenous contrast. This CT exam was performed using one or more of the following dose reduction techniques: automated exposure control, adjustment of the mA and/or kV according to patient size, and/or use of iterative reconstruction technique. COMPARISON: CT abdomen pelvis from 10/01/2023. FINDINGS: LUNG BASES: Stable 2 mm noncalcified left lower lobe pulmonary nodules. No follow-up imaging is recommended according to Fleischner criteria. No consolidation. ABDOMEN: LIVER: Unremarkable. GALLBLADDER AND BILE DUCTS: Mild abnormal gallbladder distention. No pericholecystic fluid. No calcified gallstones. No significant biliary ductal dilatation. Gallbladder distention is most likely due to a fasting state. PANCREAS: Unremarkable. No ductal dilation. SPLEEN: Spleen is mildly prominent, measuring up to 15.3 cm in length. ADRENALS: Tiny benign fat density right adrenal myelolipoma, measuring 8 mm. No follow-up imaging is recommended. KIDNEYS AND URETERS: Intermediate density lateral interpolar left renal cortical lesion, measuring 10 mm x 10 mm (series 3 image 81). This appears similar to prior. No hydronephrosis. STOMACH AND BOWEL: Postsurgical change of the stomach. No bowel obstruction. PELVIS: APPENDIX: No findings to suggest acute appendicitis. BLADDER: Unremarkable. No stones. REPRODUCTIVE: Unremarkable as visualized. ABDOMEN and PELVIS: INTRAPERITONEAL SPACE: Unremarkable. No free air. No significant fluid collection. BONES/JOINTS: Degenerative change of the spine. Right GEORGE. Hardware appears intact. Mild left hip joint DJD. Chronic left L5 pars defect. No acute fracture. SOFT TISSUES: Mild subcutaneous edema in the right lateral gluteal and proximal thigh regions. There are two adjacent small low-density fluid collections in the subcutaneous tissues at the ventral lateral aspect of the right hip. These measure 2.8 cm x 1.6 cm and 2.7 cm x 2.2 cm. These contain no gas. Mild probable scar tissue in the right flank subcutaneous tissues. VASCULATURE: Minimal atherosclerotic vascular calcifications. No abdominal aortic aneurysm. LYMPH NODES: Mildly enlarged 13 mm left external iliac lymph node. Mildly enlarged left inguinal lymph nodes, measuring up to 13 mm. Impression: 1. No acute fracture is identified. 2. Small loculated fluid collections in the subcutaneous tissues adjacent to the right hip. These most likely reflect postoperative seromas. Correlate clinically to fully exclude an abscess or hematoma. 3. Mild splenomegaly. 4. Indeterminate 10 mm left renal cortical lesion. Recommend further evaluation with nonemergent renal ultrasound. If lesion is not adequately characterized with ultrasound, recommend further evaluation with multiphasic renal mass protocol MRI. 5. Mildly prominent left external iliac and inguinal lymph nodes. Report Dictated on Electronically Signed By: Mago Falcon MD Electronically Signed Date/Time: 06/23/2024 12:42 PM EDT XR tibia fibula 2 views left [[id number]] Collected: 06/23/24 1125 Order Status: Completed Updated: 06/23/24 1133 Narrative: Patient Name: SOPHIE HICKS : 1965 Exam Date/Time: 06/23/2024 11:10 Procedure: XR TIBIA FIBULA 2 VIEWS LEFT Ordering Provider: RODRIGUEZ AKASH Reason For Exam: fall, LLE laceration (5 days ago), swollen edema EXAM: XR Left Tibia and Fibula, 2 Views CLINICAL INDICATION: fall, LLE laceration (5 days ago), swollen edema TECHNIQUE: Frontal and lateral views of the left tibia and fibula. COMPARISON: Left knee radiographs from 09/06/2021 FINDINGS: BONES/JOINTS: Tiny chronic appearing corticated ossification adjacent to the medial malleolus. Minimal degenerative change of the medial compartment of the knee. Minimal patellofemoral compartment DJD. Minimal degenerative change of the tibiotalar joint. Posterior and plantar calcaneal enthesophytes. Superior and inferior patellar enthesophytes. No acute fracture. No dislocation. No acute appearing focal cortical erosion or periosteal reaction. SOFT TISSUES: Diffuse soft tissue swelling. No radiopaque foreign body in the soft tissues. Impression: 1. No acute osseous abnormality. 2. Diffuse soft tissue swelling. No radiopaque foreign body. Report Dictated on Electronically Signed By: Mago Falcon MD Electronically Signed Date/Time: 06/23/2024 11:28 AM EDT Antimicrobials, Start/End Dates: Dapto 06/24- Erta 06/26- Pip/tazo 06/23- Vanco 06/23 Tmp/Smx 06/29- Impression: Cellulitis of left lower leg. Improved. Infected sutured laceration wound on anterior left lower leg due to MRSA. S/p Right total hip arthroplasty on 05/27/24 for degenerative arthritis. Plan: Pt was admitted sick due to cellulitis of left lower leg due to Infected sutured laceration wound on anterior left lower leg due to MRSA. Lt leg sutured wound draining purulent material and labs showed elevated inflammatory markers. Recent wound cx grew MRSA. Consider remove the sutures from left lower leg to facilitate drainage of all purulent material. Inflammatory markers improved. Rt GEORGE did not appear to be infected. Substitute TMX for daptomycin to complete a total of 10 days MRSA treatment. Discontinue ertapenem. Moderate level complexity medical decision making. Please call with any further question. Total time of 35 minutes on this day of encounter spent on, but not limited to review of tests, medical records , complex history , review of external medical records, paper and electronic, counseling and education (patient, family member, caregiver), ordering medications, tests, and procedures, communication with other health care professions, independent interpretation of tests, care coordination, arrangement of outpatient antimicrobial therapy, post-hospitalization therapy and follow-up, and counseling for risks, benefits, and consideration of use of antimicrobials. Images from the original note were not included. OCCUPATIONAL THERAPY [facility] Treatment Note Name/MRN: Titi Hicks ([id number]) Date of : 1965 Age: 58 y.o. Room/Bed: W3-358/G8-431 B Visit #: 3 out of 7 visits Discharge Recommendation: Home with Home health OT, Continue to assess pending progress Equipment Needed: No Prior Level of Function Prior Level of ADL Function: Independent Prior Level of Mobility: Independent; Device: Front wheeled walker Prior Level of Transfers: Independent Assessment Pt seen on 06/29 for pain and swelling in BLE and has a history of a R GEORGE (05/28). Pt previously independent in ADLs, functional transfers and mobility with fww since surgery. Pt currently SBA for LB ADLS, Mod I/SBA for UB ADLs, and SBA for bed mobility/transfers/functional mobility. Pt is limited by pain, weakness, and impaired safety awareness. Pt is functioning below baseline and would benefit from skilled OT services to maximize safety and independence with ADLs and functional mobility. Recommendation [facility] OT as pt continues to progress towards OT therapeutic goals. Subjective Pt pleasant and agreeable to therapy services. Services approved by his RN, paresh for therapy. Pain: 0-10 pain scale: 7/10 Location: R hip Medical Precautions: No active isolations Proper PPE donned/doffed in accordance with facility standards. Fall Risk: Hanson Fall Risk Score: 70 (Low Risk) Hanson Fall Risk Score: 70 (High Risk) Precautions/Restrictions: Right LE Weight Bearing: Weight Bearing As Tolerated Hip Precautions: Anterior Hip Precautions Family/Caregiver Present: none Objective ADLs LE Dressing: SBA UE Dressing: Modified Independent, SBA Pt educated on proper dressing techniques and hip kit AE to maintain precautions prior to dressing tasks.Pt completed UB/LB dressing tasks while sitting EOB. Pt donned hospital pants using long-handled manager forensic with SBA. Pt donned BLE socks using sock-aid with SBA. Pt donned own shirt with with Mod I while seated. Pt demonstrated good teach back of skills and maintained good dynamic sitting balance while completing dressing tasks. Pt denied any dizziness or increased pain at this time. Pt completed UB dressing by donning own shirt EOB with Mod I. However, increased assistance recommended during standing UB ADLs due to decreased safety awareness and pain. Bed Mobility Supine to sit: SBA Pt laying supine in bed with HOB elevated upon arrival. Pt educated on proper hand placement, BLE management, and device management prior to getting OOB. Pt required SBA overall for bed mobility. Pt required no physical assist to manage BLE and trunk to EOB. Pt demonstrated good static sitting balance at EOB and denies any dizziness from positional changes at this time. Pt sitting EOB when ending session. Transfers/Mobility Sit to stand: SBA Stand to sit: SBA Functional mobility: SBA Increased time overall to complete OOB activity. Pt required SBA overall for all sit < > stand transfers from EOB using FWW. Pt demonstrated good teach back of hand reach back and device/BLE management when standing from seated surface. Pt denied any dizziness and displayed no LOB during functional transfers. Pt completed functional mobility from EOB to hallway using FWW with SBA overall. Pt did have slight increased noted offloading through BUE when using FWW. Pt demonstrated good safety awareness and device management when negotiating the environment. Pt displayed no signs of buckling or LOB when completing functional mobility at this time. Device(s) used: Front wheeled walker Pt demos overall improving safety awareness this session, however would continue to assess for carryover. Per chart review and discussioin with pt, pt lives at home with his . Plan Continue acute OT per plan of care. Safety/Education Safety Safety Devices in place: All fall risk precautions in place, call light within reach, gait belt, patient at risk for falls, nurse notified, no alarms engaged upon entry, and patient left sitting EOB Restraints: No Education Education Given To: patient Education Provided: OT Role, Precautions, ADL Adaptive Strategies, Transfer Training, Equipment, Fall Prevention Education, and Benefits of Increasing Activity Education Method: Verbal, Demonstration, and Teach Back Barriers to Learning: None Education Outcome: Verbalized Understanding and Demonstrated Understanding Pt demonstrated ability to recall his hip precautions with no cues AM-PAC AM-PAC Inpatient Daily Activity Raw Score: 20 ADL Inpatient CMS G-Code Modifier: CJ Goals Patient Stated Goal: to have less pain Encounter Problems Encounter Problems (Active) Balance Patient will tolerate standing for 3 minutes with min A at fww to allow increased independence in ADLs. (Progressing) Start: 06/24/24 Expected End: 07/08/24 Dressing Upper Extremities Patient will complete upper body ADLs mod I. (Progressing) Start: 06/24/24 Expected End: 07/08/24 Dressings Lower Extremities Patient will complete lower body ADLs min A with AE. (Goal Met) Start: 06/24/24 Expected End: 07/08/24 Resolved: 06/29/24 Updated to: Patient will complete lower body ADLs MOD I with AE. Update reason: Goal met, progressing to higher level goal Patient will complete lower body ADLs MOD I with AE. Start: 06/29/24 Expected End: 07/08/24 Mobility Patient will demonstrate functional ambulation min A at fww. (Goal Met) Start: 06/24/24 Expected End: 07/08/24 Resolved: 06/29/24 Updated to: Patient will demonstrate functional ambulation MOD I at fww. Update reason: Goal met, progressing to higher level goal Patient will demonstrate functional ambulation MOD I at fww. Start: 06/29/24 Expected End: 07/08/24 Toileting Patient will complete toileting tasks [place] [facility] with modified independence. (Not Addressed) Start: 06/24/24 Expected End: 07/08/24 Encounter Problems (Resolved) Transfers Patient will complete functional transfer with rolling walker with min assist in order to prepare for ambulation. (Goal Met) Start: 06/24/24 Expected End: 07/08/24 Resolved: 06/28/24 Patient will perform bed mobility with SBA in order to improve independence and prepare for out of bed mobility. (Goal Met) Start: 06/24/24 Expected End: 07/08/24 Resolved: 06/29/24 Therapy Time Individual Co-treatment Time In 0903 Time Out 0914 Minutes 11 Timed Code Treatment Minutes: 11 Minutes (Self/ADL) Navjot Perdue S/ERNST I certify that I was present during the entire session and guided the care given by the Student Occupational Therapist. Cosign: Images from the original note were not included. [facility] - Infectious Diseases Attending Progress Note Subjective: Follow up for cellulitis of left lower leg and infected sutured laceration wound on anterior left lower leg due to MRSA. He was alert, laying on bed, c/o pain on left lower leg- rated as 7/10, pus drained from the left leg suture, he denied much pain in right hip, appeared anxious but non-toxic. He was admitted on 06/23/24 via EMS after a fall at home, c/o left leg redness, burning pain and drainage from suture, weakness; denied any fevers, chills, chest pain, shortness of breath, nausea, vomiting, diarrhea, constipation, urinary complaints; in ED, vitals were ok, labs showed elevated crp 115.7 and esr 37, Lt leg Xray showed diffuse soft tissue swelling. He was given daptomycin and ertapenem. He underwent right total hip arthroplasty on 05/27/24, denied much pain in hip. He was examined; notes, labs, imaging were reviewed; treatment plan was discussed; clinical informations were documented in electronic record. Objective: Vitals: Patient Vitals for the past 24 hrs: BP Temp Temp src Pulse Resp SpO2 06/28/24 0839 132/70 36.4 C (97.6 F) Temporal 71 18 96 % 06/27/24 1917 117/64 36.6 C (97.8 F) Temporal 84 18 -- Physical Exam Vitals and nursing note reviewed. Constitutional: General: He is not in acute distress. Appearance: He is obese. HENT: Head: Normocephalic and atraumatic. Mouth/Throat: Mouth: Mucous membranes are dry. Eyes: Extraocular Movements: Extraocular movements intact. Conjunctiva/sclera: Conjunctivae normal. Pupils: Pupils are equal, round, and reactive to light. Cardiovascular: Rate and Rhythm: Regular rhythm. Tachycardia present. Pulses: Normal pulses. Heart sounds: Murmur heard. Pulmonary: Effort: Pulmonary effort is normal. Breath sounds: Normal breath sounds. Abdominal: General: Bowel sounds are normal. There is no distension. Palpations: Abdomen is soft. Tenderness: There is no abdominal tenderness. There is no rebound. Musculoskeletal: General: Tenderness and signs of injury present. Normal range of motion. Cervical back: Neck supple. Right lower leg: No edema. Left lower leg: Edema present, wound sutures intact, + purulent drainage from the distal suture end, surrounding erythema, swelling, tender to touch, warm to touch. Skin: General: Skin is warm. Capillary Refill: Capillary refill takes less than 2 seconds. Findings: Erythema and lesion present. Neurological: General: No focal deficit present. Mental Status: He is alert and oriented to person, place, and time. Mental status is at baseline. Psychiatric: Mood and Affect: Mood normal. Labs: Recent Labs 06/26/24 0320 06/27/24 0204 06/28/24 0218 NA 140 142 140 K 3.8 3.9 4.0 CL 108* 106 105 CO2 23 26 25 BUN 17 21 20 CREATININE 1.02 1.09 1.04 GLUCOSE 90 98 101* CALCIUM 8.5* 8.7* 8.9 PROT 6.3* 6.5 -- BILITOT 0.5 0.4 -- ALKPHOS 78 85 -- AST 21 25 -- ALT 6 9 -- Recent Labs 06/26/24 0320 06/27/24 0204 06/28/24 0218 WBC 4.2 4.0 5.8 HGB 9.5* 11.1* 11.3* HCT 29.9* 34.4* 35.4* PLT 115* 150 178 LYMPHOPCT 20.0 25.5 -- MONOPCT 8.6 8.9 -- BASOPCT 0.7 0.7 -- NEUTROABS 2.6 2.2 -- Procal 0.66 Crp 115.7 Esr 37 Micro: No results for input(s): COVID19 in the last 72 hours. Collected Updated Procedure Result Status 06/26/2024 1658 06/26/2024 2320 Aerobic culture with stain [[id number]] ESwab from Leg, Left Preliminary result Component Value Culture Culture in progress P Gram Stain Result Moderate Polymorphonuclear leukocytes per low power field P No organisms seen P Lines: PIV site ok Radiography/Echo/Other: CT abdomen pelvis wo IV contrast [[id number]] Collected: 06/23/24 1230 Order Status: Completed Updated: 06/23/24 1243 Narrative: [facility] 1965 [id number] Exam Date/Time: 06/23/2024 11:19 Procedure: CT ABDOMEN PELVIS WO IV CONTRAST Ordering Provider: RODRIGUEZ AKASH Reason For Exam: fall, lower back pain EXAM: CT Abdomen and Pelvis Without Intravenous Contrast CLINICAL INDICATION: fall, lower back pain. Weakness and pain in the bilateral legs. TECHNIQUE: Axial computed tomography images of the abdomen and pelvis without intravenous contrast. This CT exam was performed using one or more of the following dose reduction techniques: automated exposure control, adjustment of the mA and/or kV according to patient size, and/or use of iterative reconstruction technique. COMPARISON: CT abdomen pelvis from 10/01/2023. FINDINGS: LUNG BASES: Stable 2 mm noncalcified left lower lobe pulmonary nodules. No follow-up imaging is recommended according to Fleischner criteria. No consolidation. ABDOMEN: LIVER: Unremarkable. GALLBLADDER AND BILE DUCTS: Mild abnormal gallbladder distention. No pericholecystic fluid. No calcified gallstones. No significant biliary ductal dilatation. Gallbladder distention is most likely due to a fasting state. PANCREAS: Unremarkable. No ductal dilation. SPLEEN: Spleen is mildly prominent, measuring up to 15.3 cm in length. ADRENALS: Tiny benign fat density right adrenal myelolipoma, measuring 8 mm. No follow-up imaging is recommended. KIDNEYS AND URETERS: Intermediate density lateral interpolar left renal cortical lesion, measuring 10 mm x 10 mm (series 3 image 81). This appears similar to prior. No hydronephrosis. STOMACH AND BOWEL: Postsurgical change of the stomach. No bowel obstruction. PELVIS: APPENDIX: No findings to suggest acute appendicitis. BLADDER: Unremarkable. No stones. REPRODUCTIVE: Unremarkable as visualized. ABDOMEN and PELVIS: INTRAPERITONEAL SPACE: Unremarkable. No free air. No significant fluid collection. BONES/JOINTS: Degenerative change of the spine. Right GEORGE. Hardware appears intact. Mild left hip joint DJD. Chronic left L5 pars defect. No acute fracture. SOFT TISSUES: Mild subcutaneous edema in the right lateral gluteal and proximal thigh regions. There are two adjacent small low-density fluid collections in the subcutaneous tissues at the ventral lateral aspect of the right hip. These measure 2.8 cm x 1.6 cm and 2.7 cm x 2.2 cm. These contain no gas. Mild probable scar tissue in the right flank subcutaneous tissues. VASCULATURE: Minimal atherosclerotic vascular calcifications. No abdominal aortic aneurysm. LYMPH NODES: Mildly enlarged 13 mm left external iliac lymph node. Mildly enlarged left inguinal lymph nodes, measuring up to 13 mm. Impression: 1. No acute fracture is identified. 2. Small loculated fluid collections in the subcutaneous tissues adjacent to the right hip. These most likely reflect postoperative seromas. Correlate clinically to fully exclude an abscess or hematoma. 3. Mild splenomegaly. 4. Indeterminate 10 mm left renal cortical lesion. Recommend further evaluation with nonemergent renal ultrasound. If lesion is not adequately characterized with ultrasound, recommend further evaluation with multiphasic renal mass protocol MRI. 5. Mildly prominent left external iliac and inguinal lymph nodes. Report Dictated on Electronically Signed By: Mago Falcon MD Electronically Signed Date/Time: 06/23/2024 12:42 PM EDT XR tibia fibula 2 views left [[id number]] Collected: 06/23/24 112 Order Status: Completed Updated: 06/23/24 1133 Narrative: Patient Name: SOPHIE HICKS : 1965 Exam Date/Time: 06/23/2024 11:10 Procedure: XR TIBIA FIBULA 2 VIEWS LEFT Ordering Provider: RODRIGUEZ AKASH Reason For Exam: fall, LLE laceration (5 days ago), swollen edema EXAM: XR Left Tibia and Fibula, 2 Views CLINICAL INDICATION: fall, LLE laceration (5 days ago), swollen edema TECHNIQUE: Frontal and lateral views of the left tibia and fibula. COMPARISON: Left knee radiographs from 09/06/2021 FINDINGS: BONES/JOINTS: Tiny chronic appearing corticated ossification adjacent to the medial malleolus. Minimal degenerative change of the medial compartment of the knee. Minimal patellofemoral compartment DJD. Minimal degenerative change of the tibiotalar joint. Posterior and plantar calcaneal enthesophytes. Superior and inferior patellar enthesophytes. No acute fracture. No dislocation. No acute appearing focal cortical erosion or periosteal reaction. SOFT TISSUES: Diffuse soft tissue swelling. No radiopaque foreign body in the soft tissues. Impression: 1. No acute osseous abnormality. 2. Diffuse soft tissue swelling. No radiopaque foreign body. Report Dictated on Electronically Signed By: Mago Falcon MD Electronically Signed Date/Time: 06/23/2024 11:28 AM EDT Antimicrobials, Start/End Dates: Dapto 06/24- Erta 06/26- Pip/tazo 06/23- Vanco 06/23 Impression: Cellulitis of left lower leg. Infected sutured laceration wound on anterior left lower leg due to MRSA. S/p Right total hip arthroplasty on 05/27/24 for degenerative arthritis. Elevated inflammatory markers. Plan: Pt was admitted sick due to cellulitis of left lower leg due to Infected sutured laceration wound on anterior left lower leg. Lt leg sutured wound draining purulent material and labs showed elevated inflammatory markers. Wound cx on admission was lost, new cx was obtained yesterday (06/26) after about 4 days of antimicrobial treatment. Recent wound cx grew MRSA, await sensitivity. Consider remove the sutures from left lower leg to facilitate drainage of all purulent material. Continue present empiric antimicrobials. Follow inflammatory markers in AM. Rt GEORGE did not appear to be infected. High level complexity medical decision making. Will follow. Total time of 50 minutes on this day of encounter spent on, but not limited to review of tests, medical records , complex history , review of external medical records, paper and electronic, counseling and education (patient, family member, caregiver), ordering medications, tests, and procedures, communication with other health care professions, independent interpretation of tests, care coordination, arrangement of outpatient antimicrobial therapy, post-hospitalization therapy and follow-up, and counseling for risks, benefits, and consideration of use of antimicrobials. Images from the original note were not included. OCCUPATIONAL THERAPY [facility] Treatment Note Name/MRN: Titi Hicks ([id number]) Date of : 1965 Age: 58 y.o. [facility]: [facility] Visit #: 2 out of 7 visits Discharge Recommendation: [facility] Facility Prior Level of Function Prior Level of ADL Function: Independent Prior Level of Mobility: Independent; Device: Front wheeled walker Prior Level of Transfers: Independent Assessment Pt was in the bathroom when WILLIAM entered the room. Pt reports he got to the bathroom without assist. Pt came out of the bathroom walking with the standard walker and trying to cover up his back side while walking with one hand on the standard walker. Assist given with gown management and pt encouraged to walk to the sink. Pt is SBA for standing balance at the sink to wash his hands. No LOB. WILLIAM donned gait belt and served also as a way to keep his gown closed in the back. Pt agreeable to use WILLIAM's FWW and is SBA for functional mobility to walk down the lynn and back. No LOB but is limited by pain. Pt returned to bed. WILLIAM washed hands and turned to see the pt standing at the EOB and turning to face the EOB trying to place a bed pad on his bed. WILLIAM educating pt on safety. Pt is limited by weakness, pain and is impulsive with decreased safety awareness. OT recommending SNF at discharge. Subjective Pt agreeable to therapy. Was in the bathroom when WILLIAM entered the room. Pain: RN managing pain. 0-10 pain scale: not rated/10 Location: LLE and right hip. Medical Precautions: No active isolations Proper PPE donned/doffed in accordance with facility standards. Fall Risk: Hanson Fall Risk Score: 85 (Low Risk) Hanson Fall Risk Score: 85 (High Risk) Precautions/Restrictions: Right LE Weight Bearing: Weight Bearing As Tolerated Hip Precautions: Anterior Hip Precautions Family/Caregiver Present: none Objective ADLs Toileting: not observed but pt used the toilet. Was in the bathroom when WILLIAM entered the room. Pt came out on his own. Grooming: SBA, to stand at the sink to wash his hands. UE Dressing: Min Assist, Pt needing assist with snapping, tying and holding gown around his back. Pt trying to hold his gown together when walking. Overall min assist with ADL's. Bed Mobility Supine to sit: not observed Sit to supine: SBA, pt recalls hip precautions regarding twisting. Transfers/Mobility Sit to stand: SBA Stand to sit: SBA Toilet: not observed Sitting balance: Modified Independent Standing balance: SBA Functional mobility: SBA Pt in the bathroom initially and is CGA when walking out of the bathroom. Pt with decreased safety awareness as he was walking with on hand on the standard walker and was trying to lift it while holding his gown together with his other hand. Pt also reports that he does sometimes takes a few steps without his walker. Used FWW to walk down the lynn and back and was SBA. Pt demonstrates impulsivity during functional activities. Pt had no true LOB but is unsteady. Educated on safety. Also verbally reviewed car transfer as that is how he fell. Pt states I know that now. Device(s) used: Standard walker and Front wheeled walker Cognition - Safety judgement: decreased awareness of need for assistance and decreased awareness of need for safety - Problem solving: assistance required to generate solutions, assistance required to implement solutions, assistance required to identify errors made, and assistance required to correct errors made - Insights: decreased awareness of deficits Plan Continue acute OT per plan of care. Safety/Education Safety Safety Devices in place: All fall risk precautions in place, call light within reach, left in bed, gait belt, and patient at risk for falls Restraints: N/A Education Education Given To: patient Education Provided: OT Role, Plan of Care, Precautions, Fall Prevention Education, and Benefits of Increasing Activity Education Method: Verbal, Demonstration, and Teach Back Barriers to Learning: None Education Outcome: Verbalized Understanding, Demonstrated Understanding, and Continued Education Needed AM-PAC AM-PAC Inpatient Daily Activity Raw Score: 18 ADL Inpatient CMS G-Code Modifier: CK Goals Patient Stated Goal: to go home Encounter Problems Encounter Problems (Active) Balance Patient will tolerate standing for 3 minutes with min A at fww to allow increased independence in ADLs. (Progressing) Start: 06/24/24 Expected End: 07/08/24 Dressing Upper Extremities Patient will complete upper body ADLs mod I. (Slowly Progressing) Start: 06/24/24 Expected End: 07/08/24 Dressings Lower Extremities Patient will complete lower body ADLs min A with AE. (Not Addressed) Start: 06/24/24 Expected End: 07/08/24 Toileting Patient will complete toileting tasks at [facility]standard [place] with modified independence. (Progressing) Start: 06/24/24 Expected End: 07/08/24 Transfers Patient will complete functional transfer with rolling walker with min assist in order to prepare for ambulation. (Goal Met) Start: 06/24/24 Expected End: 07/08/24 Resolved: 06/28/24 Patient will perform bed mobility with SBA in order to improve independence and prepare for out of bed mobility. (Progressing) Start: 06/24/24 Expected End: 07/08/24 Encounter Problems (Resolved) Mobility Patient will demonstrate functional ambulation min A at fww. (Goal Met) Start: 06/24/24 Expected End: 07/08/24 Resolved: 06/28/24 Therapy Time Individual Co-treatment Time In 1407 Time Out 1422 Minutes 15 Timed Code Treatment Minutes: 14 Minutes (ther act) NATALIIA Aguero Cosigned by Renetta Vazquez OT at 06/28/2024 3:31 PM EDT Hospitalist Progress Note 06/28/2024 [id number]: Please page me ([phone]) for patient care issues. [phone]: Please page [facility] night Hospitalist for any issues. Subjective: Admit Date: 06/23/2024 PCP: WILIAM FERNANDEZ MD Room#: B4-458/B4-458 B Interval History: Patient is lying on the bed, continue to complain of left lower extremity pain. Denies any nausea or vomitings Tolerating p.o. diet. No other significant overnight issues. 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 Back pain Benign essential HTN 01/29/2015 Blood circulation, collateral CAD (coronary artery disease) mild - dx on cath - neg stress Cerebral artery occlusion with cerebral infarction (HCC) patient states not ever confirmed as stoke Chronic kidney disease COPD (chronic obstructive pulmonary disease) (HCC) COVID-19 05/03 COVID-19 vaccine series completed 09/25/2020 Moderna COVID-19 vaccine series completed 12/04/2020 BOOSTER CS (cervical spondylosis) 12/25/2004 CERVICAL SPINE DJD Difficulty sleeping Dizziness GERD (gastroesophageal reflux disease) History of colonic polyps 06/21/2013 repeat 2019 Hyperlipidemia Hypothyroidism Insomnia 08/15/2014 Joint pain, hip Joint pain, knee Memory difficulties Motion sickness 05/24/2024 Muscle weakness Peripheral polyneuropathy 09/30/2020 Rheumatoid arthritis (HCC) Shortness of breath at rest Sleep apnea resolved with weight loss Snoring SOBOE (shortness of breath on exertion) Type 2 diabetes mellitus (HCC) 03/19/2021 resolved after weight loss LABS: CBC: Recent Labs 06/26/24 0320 06/27/24 02006/28/24217 WBC 4.2 4.0 5.8 RBC 3.40* 3.92* 4.05* HGB 9.5* 11.1* 11.3* HCT 29.9* 34.4* 35.4* MCV 87.9 87.8 87.4 RDW 13.0 12.9 12.7 PLT 115* 150 178 BMP: Recent Labs 06/26/240 06/27/2420306/28/24217 NA 140 142 140 K 3.8 3.9 4.0 CL 108* 106 105 CO2 23 26 25 BUN 17 21 20 CREATININE 1.02 1.09 1.04 GLUCOSE 90 98 101* CALCIUM 8.5* 8.7* 8.9 ANIONGAP 9 10 10 LIVER PROFILE: Recent Labs 06/26/2431906/27/24203 AST 21 25 ALT 6 9 BILITOT 0.5 0.4 ALKPHOS 78 85 PROT 6.3* 6.5 PT/INR: No results for input(s): PROTIME, INR in the last 72 hours. CARDIAC ENZYMES: No results for input(s): TROPONINI in the last 72 hours. Procalcitonin: No results found for: PROCAL COVID-19 PCR: No results for input(s): COVID19 in the last 72 hours. Objective: Vitals: BP 132/70 (BP Location: Left arm, Patient Position: Lying) Pulse 71 Temp 36.4 C (97.6 F) (Temporal) Resp 18 Ht 6' 2 (1.88 m) Wt 275 lb 9.2 oz (125 kg) Comment: Bed Scale SpO2 96% BMI 35.38 kg/m Pulse Ox: SpO2 Av % Min: 96 % Max: 96 % Supplemental O2: Constitutional: General: He is not in acute distress. Appearance: He is obese. HENT: Head: Normocephalic. Eyes: Extraocular Movements: Extraocular movements intact. Conjunctiva/sclera: Conjunctivae normal. Cardiovascular: Rate and Rhythm: Normal rate and regular rhythm. Pulses: Normal pulses. Heart sounds: Murmur heard. Pulmonary: Effort: Pulmonary effort is normal. Breath sounds: Normal breath sounds. Abdominal: General: Bowel sounds are normal. There is no distension. Palpations: Abdomen is soft. Tenderness: There is no abdominal tenderness. Musculoskeletal: General: Swelling, tenderness and signs of injury present. Cervical back: Normal range of motion. Left lower leg: Edema present. Skin: General: Skin is dry. Capillary Refill: Capillary refill takes less than 2 seconds. Findings: Erythema present. Neurological: General: No focal deficit present. Mental Status: He is alert and oriented to person, place, and time. Psychiatric: Mood and Affect: Mood normal. Medications: aspirin, 81 mg, Oral, Daily atorvastatin, 80 mg, Oral, Nightly buPROPion XL, 150 mg, Oral, Daily busPIRone, 10 mg, Oral, BID collagenase, , Topical, Daily DAPTOmycin (Cubicin) 750 mg in sodium chloride 0.9 % 50 mL IVPB, 750 mg, IntraVENous, q24h docusate sodium, 100 mg, Oral, BID enoxaparin, 40 mg, SubCUTAneous, Daily ertapenem, 1,000 mg, IntraVENous, q24h finasteride, 5 mg, Oral, Daily gabapentin, 600 mg, Oral, TID levothyroxine, 75 mcg, Oral, qAM AC Lidocaine, 1 patch, TransDERmal, Daily mometasone-formoterol, 2 puff, Inhalation, BID mupirocin, , Topical, BID pantoprazole, 40 mg, Oral, Daily tamsulosin, 0.4 mg, Oral, Daily Assessment Left lower extremity cellulitis. Infected sutured laceration anterior left lower leg. Thrombocytopenia. History of: Status post a right total hip arthroplasty 05/28. Mild coronary artery disease-angiogram [address] [facility]. Bariatric surgery in 2021 COPD-no signs of exacerbation Hypertension Hyperlipidemia Hypothyroidism Chronic kidney disease stage II. Gastroesophageal reflux disease BPH. Depression/anxiety. Obesity. TIA. Plan: Continue broad-spectrum antibiotics with daptomycin and ertapenem-infectious disease managing antibiotics. Repeated wound cultures on 06/26-pending results Continuing wound care. Pain uncontrolled with oxycodone, restarted IV Dilaudid as needed for 1 day Platelets improved-monitor with CBC. Other home medications reviewed and resumed appropriately. Follow-up CBC BMP ordered. PT OT evaluation. DVT prophylaxis: Lovenox daily. Disposition: Pending transition to oral antibiotics Pending wound cultures PT OT recommending [facility] facility. Possible discharge in next 2 to 3 days. -am labs, replace lytes prn -increase activity -DVT prophylaxis: [x] Lovenox [] Heparin [] SCDs [x] Encourage ambulation [] Already on Anticoagulation Advance Directive: Full Code Discharge planning: TBD Khanh Lee MD Division of Hospitalist Medicine Inpatient Medical Services/[facility] PAGER: [phone] Hospitalist Progress Note 06/27/[id number]: Please page me ([phone]) for patient care issues. [phone]: Please page [facility] night Hospitalist for any issues. Subjective: Admit Date: 06/23/2024 PCP: WILIAM FERNANDEZ MD Room#: B4-458/B4-458 B Interval History: Patient is lying on the bed, continue to complain of left lower extremity pain. Denies any nausea or vomitings Tolerating p.o. diet. No other significant overnight issues. 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 Back pain Benign essential HTN 01/29/2015 Blood circulation, collateral CAD (coronary artery disease) mild - dx on cath - neg stress Cerebral artery occlusion with cerebral infarction (HCC) patient states not ever confirmed as stoke Chronic kidney disease COPD (chronic obstructive pulmonary disease) (HCC) COVID-19 05/03 COVID-19 vaccine series completed 09/25/2020 Moderna COVID-19 vaccine series completed 12/04/2020 BOOSTER CS (cervical spondylosis) 12/25/2004 CERVICAL SPINE DJD Difficulty sleeping Dizziness GERD (gastroesophageal reflux disease) History of colonic polyps 06/21/2013 repeat 2019 Hyperlipidemia Hypothyroidism Insomnia 08/15/2014 Joint pain, hip Joint pain, knee Memory difficulties Motion sickness 05/24/2024 Muscle weakness Peripheral polyneuropathy 09/30/2020 Rheumatoid arthritis (HCC) Shortness of breath at rest Sleep apnea resolved with weight loss Snoring SOBOE (shortness of breath on exertion) Type 2 diabetes mellitus (HCC) 03/19/2021 resolved after weight loss LABS: CBC: Recent Labs 06/25/2445006/26/2431906/27/24 0204 WBC 5.1 4.2 4.0 RBC 3.39* 3.40* 3.92* HGB 9.4* 9.5* 11.1* HCT 30.2* 29.9* 34.4* MCV 89.1 87.9 87.8 RDW 13.2 13.0 12.9 PLT 111* 115* 150 BMP: Recent Labs 06/25/2445006/26/2431906/27/24 0204 NA 140 140 142 K 3.7 3.8 3.9 CL 109* 108* 106 CO2 23 23 26 BUN 15 17 21 CREATININE 0.98 1.02 1.09 GLUCOSE 101* 90 98 CALCIUM 8.5* 8.5* 8.7* ANIONGAP 8 9 10 LIVER PROFILE: Recent Labs 06/25/2445006/26/2431906/27/24 020 AST 16 21 25 ALT <6 6 9 BILITOT 0.6 0.5 0.4 ALKPHOS 74 78 85 PROT 6.1* 6.3* 6.5 PT/INR: Recent Labs 06/25/24450 PROTIME 12.2* INR 1.1 CARDIAC ENZYMES: No results for input(s): TROPONINI in the last 72 hours. Procalcitonin: No results found for: PROCAL COVID-19 PCR: No results for input(s): COVID19 in the last 72 hours. Objective: Vitals: BP 117/64 (BP Location: Right arm, Patient Position: Lying) Pulse 84 Temp 36.6 C (97.8 F) (Temporal) Resp 18 Ht 6' 2 (1.88 m) Wt 275 lb 9.2 oz (125 kg) Comment: Bed Scale SpO2 95% BMI 35.38 kg/m Pulse Ox: SpO2 Av % Min: 95 % Max: 97 % Supplemental O2: Constitutional: General: He is not in acute distress. Appearance: He is obese. HENT: Head: Normocephalic. Eyes: Extraocular Movements: Extraocular movements intact. Conjunctiva/sclera: Conjunctivae normal. Cardiovascular: Rate and Rhythm: Normal rate and regular rhythm. Pulses: Normal pulses. Heart sounds: Murmur heard. Pulmonary: Effort: Pulmonary effort is normal. Breath sounds: Normal breath sounds. Abdominal: General: Bowel sounds are normal. There is no distension. Palpations: Abdomen is soft. Tenderness: There is no abdominal tenderness. Musculoskeletal: General: Swelling, tenderness and signs of injury present. Cervical back: Normal range of motion. Left lower leg: Edema present. Skin: General: Skin is dry. Capillary Refill: Capillary refill takes less than 2 seconds. Findings: Erythema present. Neurological: General: No focal deficit present. Mental Status: He is alert and oriented to person, place, and time. Psychiatric: Mood and Affect: Mood normal. Medications: aspirin, 81 mg, Oral, Daily atorvastatin, 80 mg, Oral, Nightly buPROPion XL, 150 mg, Oral, Daily busPIRone, 10 mg, Oral, BID collagenase, , Topical, Daily DAPTOmycin (Cubicin) 750 mg in sodium chloride 0.9 % 50 mL IVPB, 750 mg, IntraVENous, q24h docusate sodium, 100 mg, Oral, BID enoxaparin, 40 mg, SubCUTAneous, Daily ertapenem, 1,000 mg, IntraVENous, q24h finasteride, 5 mg, Oral, Daily gabapentin, 600 mg, Oral, TID levothyroxine, 75 mcg, Oral, qAM AC Lidocaine, 1 patch, TransDERmal, Daily mometasone-formoterol, 2 puff, Inhalation, BID mupirocin, , Topical, BID pantoprazole, 40 mg, Oral, Daily tamsulosin, 0.4 mg, Oral, Daily Assessment Left lower extremity cellulitis. Infected sutured laceration anterior left lower leg. Thrombocytopenia. History of: Status post a right total hip arthroplasty 05/28. Mild coronary artery disease-angiogram [address] [facility]. Bariatric surgery in 2021 COPD-no signs of exacerbation Hypertension Hyperlipidemia Hypothyroidism Chronic kidney disease stage II. Gastroesophageal reflux disease BPH. Depression/anxiety. Obesity. TIA. Plan: Continue broad-spectrum antibiotics with daptomycin and ertapenem-infectious disease managing antibiotics. Repeating wound cultures on 06/26. Continuing wound care. As patient tolerating p.o. diet, discontinued IV Dilaudid continue oxycodone as needed Platelets improved-monitor with CBC. Other home medications reviewed and resumed appropriately. Follow-up CBC BMP ordered. PT OT evaluation. DVT prophylaxis: Lovenox daily. Disposition: Pending transition to oral antibiotics Pending wound cultures PT OT recommending [facility] facility. Possible discharge in next 2 to 3 days. -am labs, replace lytes prn -increase activity -DVT prophylaxis: [] Lovenox [] Heparin [] SCDs [x] Encourage ambulation [] Already on Anticoagulation Advance Directive: Full Code Discharge planning: TBD Khanh Lee MD Division of Hospitalist Medicine Inpatient Medical Services/[facility] [place] PAGER: [phone] Images from the original note were not included. [facility] - Infectious Diseases Attending Progress Note Subjective: Follow up for cellulitis of left lower leg and infected sutured laceration wound on anterior left lower leg. He was alert, laying on bed, c/o pain on left lower leg- rated as 9/10, pus draining from the left leg suture, he denied much pain in right hip, appeared anxious but non-toxic. He was admitted on 06/23/24 via EMS after a fall at home, c/o left leg redness, burning pain and drainage from suture, weakness; denied any fevers, chills, chest pain, shortness of breath, nausea, vomiting, diarrhea, constipation, urinary complaints; in ED, vitals were ok, labs showed elevated crp 115.7 and esr 37, Lt leg Xray showed diffuse soft tissue swelling. He was given daptomycin and ertapenem. He underwent right total hip arthroplasty on 05/27/24 for degenerative arthritis. He was examined; notes, labs, imaging were reviewed; treatment plan was discussed; clinical informations were documented in electronic record. Objective: Vitals: Patient Vitals for the past 24 hrs: BP Temp Temp src Pulse Resp SpO2 Weight 06/27/24 1917 117/64 36.6 C (97.8 F) Temporal 84 18 -- -- 06/27/24 1000 124/73 36.3 C (97.3 F) Temporal 64 -- 95 % -- 06/27/24 0700 -- -- -- -- -- -- 125 kg (275 lb 9.2 oz) 06/26/242126 121/87 36.1 C (97 F) Temporal 79 20 97 % -- Physical Exam Vitals and nursing note reviewed. Constitutional: General: He is not in acute distress. Appearance: He is obese. HENT: Head: Normocephalic and atraumatic. Mouth/Throat: Mouth: Mucous membranes are dry. Eyes: Extraocular Movements: Extraocular movements intact. Conjunctiva/sclera: Conjunctivae normal. Pupils: Pupils are equal, round, and reactive to light. Cardiovascular: Rate and Rhythm: Regular rhythm. Tachycardia present. Pulses: Normal pulses. Heart sounds: Murmur heard. Pulmonary: Effort: Pulmonary effort is normal. Breath sounds: Normal breath sounds. Abdominal: General: Bowel sounds are normal. There is no distension. Palpations: Abdomen is soft. Tenderness: There is no abdominal tenderness. There is no rebound. Musculoskeletal: General: Tenderness and signs of injury present. Normal range of motion. Cervical back: Neck supple. Right lower leg: No edema. Left lower leg: Edema present, wound sutures intact, + purulent drainage from the distal suture end, surrounding erythema, swelling, tender to touch, warm to touch. Skin: General: Skin is warm. Capillary Refill: Capillary refill takes less than 2 seconds. Findings: Erythema and lesion present. Neurological: General: No focal deficit present. Mental Status: He is alert and oriented to person, place, and time. Mental status is at baseline. Psychiatric: Mood and Affect: Mood normal. Labs: Recent Labs 06/25/2445006/26/24 0320 06/27/24 0204 NA 140 140 142 K 3.7 3.8 3.9 CL 109* 108* 106 CO2 23 23 26 BUN 15 17 21 CREATININE 0.98 1.02 1.09 GLUCOSE 101* 90 98 CALCIUM 8.5* 8.5* 8.7* PROT 6.1* 6.3* 6.5 BILITOT 0.6 0.5 0.4 ALKPHOS 74 78 85 AST 16 21 25 ALT <6 6 9 Recent Labs 06/25/24 0451 06/26/24 0320 06/27/24 0204 WBC 5.1 4.2 4.0 HGB 9.4* 9.5* 11.1* HCT 30.2* 29.9* 34.4* PLT 111* 115* 150 LYMPHOPCT 12* 20.0 25.5 MONOPCT 4* 8.6 8.9 BASOPCT -- 0.7 0.7 NEUTROABS -- 2.6 2.2 Procal 0.66 Micro: No results for input(s): COVID19 in the last 72 hours. Collected Updated Procedure Result Status 06/26/2024 1658 06/26/2024 2320 Aerobic culture with stain [[id number]] ESwab from Leg, Left Preliminary result Component Value Culture Culture in progress P Gram Stain Result Moderate Polymorphonuclear leukocytes per low power field P No organisms seen P Lines: PIV site ok Radiography/Echo/Other: CT abdomen pelvis wo IV contrast [[id number]] Collected: 06/23/24 1230 Order Status: Completed Updated: 06/23/24 1243 Narrative: [facility] 1965 [id number] Exam Date/Time: 06/23/2024 11:19 Procedure: CT ABDOMEN PELVIS WO IV CONTRAST Ordering Provider: RODRIGUEZ AKASH Reason For Exam: fall, lower back pain EXAM: CT Abdomen and Pelvis Without Intravenous Contrast CLINICAL INDICATION: fall, lower back pain. Weakness and pain in the bilateral legs. TECHNIQUE: Axial computed tomography images of the abdomen and pelvis without intravenous contrast. This CT exam was performed using one or more of the following dose reduction techniques: automated exposure control, adjustment of the mA and/or kV according to patient size, and/or use of iterative reconstruction technique. COMPARISON: CT abdomen pelvis from 10/01/2023. FINDINGS: LUNG BASES: Stable 2 mm noncalcified left lower lobe pulmonary nodules. No follow-up imaging is recommended according to Fleischner criteria. No consolidation. ABDOMEN: LIVER: Unremarkable. GALLBLADDER AND BILE DUCTS: Mild abnormal gallbladder distention. No pericholecystic fluid. No calcified gallstones. No significant biliary ductal dilatation. Gallbladder distention is most likely due to a fasting state. PANCREAS: Unremarkable. No ductal dilation. SPLEEN: Spleen is mildly prominent, measuring up to 15.3 cm in length. ADRENALS: Tiny benign fat density right adrenal myelolipoma, measuring 8 mm. No follow-up imaging is recommended. KIDNEYS AND URETERS: Intermediate density lateral interpolar left renal cortical lesion, measuring 10 mm x 10 mm (series 3 image 81). This appears similar to prior. No hydronephrosis. STOMACH AND BOWEL: Postsurgical change of the stomach. No bowel obstruction. PELVIS: APPENDIX: No findings to suggest acute appendicitis. BLADDER: Unremarkable. No stones. REPRODUCTIVE: Unremarkable as visualized. ABDOMEN and PELVIS: INTRAPERITONEAL SPACE: Unremarkable. No free air. No significant fluid collection. BONES/JOINTS: Degenerative change of the spine. Right GEORGE. Hardware appears intact. Mild left hip joint DJD. Chronic left L5 pars defect. No acute fracture. SOFT TISSUES: Mild subcutaneous edema in the right lateral gluteal and proximal thigh regions. There are two adjacent small low-density fluid collections in the subcutaneous tissues at the ventral lateral aspect of the right hip. These measure 2.8 cm x 1.6 cm and 2.7 cm x 2.2 cm. These contain no gas. Mild probable scar tissue in the right flank subcutaneous tissues. VASCULATURE: Minimal atherosclerotic vascular calcifications. No abdominal aortic aneurysm. LYMPH NODES: Mildly enlarged 13 mm left external iliac lymph node. Mildly enlarged left inguinal lymph nodes, measuring up to 13 mm. Impression: 1. No acute fracture is identified. 2. Small loculated fluid collections in the subcutaneous tissues adjacent to the right hip. These most likely reflect postoperative seromas. Correlate clinically to fully exclude an abscess or hematoma. 3. Mild splenomegaly. 4. Indeterminate 10 mm left renal cortical lesion. Recommend further evaluation with nonemergent renal ultrasound. If lesion is not adequately characterized with ultrasound, recommend further evaluation with multiphasic renal mass protocol MRI. 5. Mildly prominent left external iliac and inguinal lymph nodes. Report Dictated on Electronically Signed By: Mago Falcon MD Electronically Signed Date/Time: 06/23/2024 12:42 PM EDT XR tibia fibula 2 views left [[id number]] Collected: 06/23/24 1125 Order Status: Completed Updated: 06/23/24 1133 Narrative: Patient Name: SOPHIE HICKS : 1965 Exam Date/Time: 06/23/2024 11:10 Procedure: XR TIBIA FIBULA 2 VIEWS LEFT Ordering Provider: RODRIGUEZ AKASH Reason For Exam: fall, LLE laceration (5 days ago), swollen edema EXAM: XR Left Tibia and Fibula, 2 Views CLINICAL INDICATION: fall, LLE laceration (5 days ago), swollen edema TECHNIQUE: Frontal and lateral views of the left tibia and fibula. COMPARISON: Left knee radiographs from 09/06/2021 FINDINGS: BONES/JOINTS: Tiny chronic appearing corticated ossification adjacent to the medial malleolus. Minimal degenerative change of the medial compartment of the knee. Minimal patellofemoral compartment DJD. Minimal degenerative change of the tibiotalar joint. Posterior and plantar calcaneal enthesophytes. Superior and inferior patellar enthesophytes. No acute fracture. No dislocation. No acute appearing focal cortical erosion or periosteal reaction. SOFT TISSUES: Diffuse soft tissue swelling. No radiopaque foreign body in the soft tissues. Impression: 1. No acute osseous abnormality. 2. Diffuse soft tissue swelling. No radiopaque foreign body. Report Dictated on Electronically Signed By: Mago Falcon MD Electronically Signed Date/Time: 06/23/2024 11:28 AM EDT Antimicrobials, Start/End Dates: Dapto 06/24- Erta 06/26- Pip/tazo 06/23- Vanco 06/23 Impression: Cellulitis of left lower leg. Infected sutured laceration wound on anterior left lower leg. S/p Right total hip arthroplasty on 05/27/24 for degenerative arthritis. Elevated inflammatory markers. Plan: Pt was admitted sick due to cellulitis of left lower leg due to Infected sutured laceration wound on anterior left lower leg. Lt leg sutured wound draining purulent material and labs showed elevated inflammatory markers. Wound cx on admission was lost, new cx was obtained yesterday (06/26) after about 4 days of antimicrobial treatment. Await new cx result. Continue present empiric antimicrobials. Follow inflammatory markers in 48h. Rt GEORGE did not appear to be infected. High level complexity medical decision making. Will follow. Total time of 50 minutes on this day of encounter spent on, but not limited to review of tests, medical records , complex history , review of external medical records, paper and electronic, counseling and education (patient, family member, caregiver), ordering medications, tests, and procedures, communication with other health care professions, independent interpretation of tests, care coordination, arrangement of outpatient antimicrobial therapy, post-hospitalization therapy and follow-up, and counseling for risks, benefits, and consideration of use of antimicrobials. Images from the original note were not included. PHYSICAL THERAPY [facility] Treatment Note Name/MRN: Titi Hicks ([id number]) Date of : 1965 Age: 58 y.o. Room/Bed: B4458/B4458 B Visit #: 1 out of 7 visits Discharge Recommendation: Retirement Facility Prior Level of Function Prior Level of ADL Function: Independent Prior Level of Mobility: Independent; Device: Front wheeled walker Prior Level of Transfers: Independent Assessment Pt tolerated session well. Pain is moderate/high in BLE but mostly LLE. Pt able to teach back and adhere to anterior hip precautions throughout session. Pt was able to tolerate transfers this session, STS with min assist and ambulation with CGA. Pt making good progress but still requires hands on assist and remains a high fall risk and is unsafe to return home. Pt will continue to benefit from skilled PT interventions including strength and gait training. Continue to recommend SNF for discharge. Subjective Pt agreeable to therapy. Observation: In bed, JERARDO wrap on LLE. Pain: 0-10 pain scale: 9/10 burning pain on LLE, 6/10 pain RLE Medical Precautions: No active isolations Proper PPE donned/doffed in accordance with facility standards. Fall Risk: Hanson Fall Risk Score: 95 (Low Risk) Hanson Fall Risk Score: 95 (High Risk) Precautions/Restrictions: Right LE Weight Bearing: Weight Bearing As Tolerated Hip Precautions: Anterior Hip Precautions Overall Cognitive Status: WNL Overall Orientation Status: Oriented x4 Family/Caregiver Present: none Objective Bed Mobility Supine to sit: SBA Sit to supine: Min Assist Pt did not requiring any cueing for sequencing. He was able to get out of bed on his own with use of bed rails, but did require min assist to manage BLE back up into bed. Transfers/Mobility Sit to stand: Min Assist Stand to sit: Min Assist X1 from EOB Pt cued for correct hand and foot placement. Good teach back. Pt required light assist and light use of momentum for him to stand. Pt mildly unsteady on feet but no LOB. Pt demos good eccentric control. Device(s) used: Front wheeled walker Ambulation Ambulation 1 Assistive device(s) used: Front wheeled walker Assist level: Contact Guard Distance (ft): 30ftx2 Quality of gait: No LOB, antalgic, reciprocal stepping, B foot clearance, slow destiney Pt demos upright posture with reciprocal stepping and good foot clearance. Pt stable and balanced throughout. CGA to ensure pt safety. Increased time to ambulate due to slow and cautious movements. Exercises Exercises Quad Sets: supine x10 BLE Heelslides: supine x10 BLE Gluteal Sets: supine x10 BLE Hip Abduction: seated x10 BLe iso Hip Adduction: seated x10 BLE iso Knee Long Arc Quad: seated x10 BLE - reduced ROM on LLE Ankle Pumps: supine x10 BLE Plan Continue acute PT per plan of care. Safety/Education Safety Safety Devices in place: All fall risk precautions in place, call light within reach, left in bed, gait belt, patient at risk for falls, and nurse notified Restraints: No Education Education Given To: patient Education Provided: PT Role, PT Goals, Gait Training, Plan of Care, Home Exercise Program, Precautions, Transfer Training, and Benefits of Increasing Activity Education Method: Verbal, Demonstration, and Teach Back Barriers to Learning: None Education Outcome: Verbalized Understanding and Demonstrated Understanding Outcome Measures AM-PAC AM-PAC Inpatient Mobility Raw Score (No Stairs) : 15 [facility] Goals Patient Stated Goal: to have less pain. Encounter Problems Encounter Problems (Active) Balance Patient will maintain dynamic standing balance for 3 minutes with SBA in order to demonstrate decreased risk of falling. (Progressing) Start: 06/24/24 Expected End: 07/04/24 Exercise Patient will complete lower extremity exercises for 1-2 sets / 5-10 reps in order to improve strength and activity tolerance for mobility. (Progressing) Start: 06/24/24 Expected End: 07/04/24 Mobility Patient will ambulate 100 feet with SBA and least restrictive device in order to improve safety and independence with mobility. (Progressing) Start: 06/24/24 Expected End: 07/04/24 Transfers Patient will perform bed mobility with modified independence in order to improve independence and prepare for out of bed mobility. (Progressing) Start: 06/24/24 Expected End: 07/04/24 Patient will complete functional transfer with least restrictive device with modified independence in order to prepare for ambulation. (Progressing) Start: 06/24/24 Expected End: 07/04/24 Therapy Time Individual Co-treatment Time In 1340 Time Out 1404 Minutes 24 Timed Code Treatment Minutes: 23 Minutes (1 gait, 1 ther ex) Cassandra Galeas PTA Cosigned by Devante Sylvester PT at 06/27/2024 3:05 PM EDT Images from the original note were not included. OCCUPATIONAL THERAPY [facility] Treatment Note Name/MRN: Titi Hicks ([id number]) Date of : 1965 Age: 58 y.o. Room[facility]Bed: [facility] B Visit #: 1 out of 7 visits Discharge Recommendation: Retirement Facility Prior Level of Function Prior Level of ADL Function: Independent Prior Level of Mobility: Independent; Device: Front wheeled walker Prior Level of Transfers: Independent Assessment Pt performed bed mobility at [facility] with extended time. Sitting balance SBA. Ub dressing/grooming SBA after set up. Pt is limited by balance, endurance, and strength. Pt is functioning below baseline and would benefit from skilled OT services to maximize safety and independence with ADLs and functional mobility. Rec SNF at discharge Subjective Agreeable for OT this date. Per RNharriet for tx Pain: Bhandari-Mari Pain Ratin = Hurts even more Pain Location: R hip Medical Precautions: No active isolations Proper PPE donned/doffed in accordance with facility standards. Fall Risk: Hanson Fall Risk Score: 95 (Low Risk) Hanson Fall Risk Score: 95 (High Risk) Precautions/Restrictions: Right LE Weight Bearing: Weight Bearing As Tolerated Hip Precautions: Anterior Hip Precautions Family/Caregiver Present: none Objective ADLs Grooming: SBA, after setup UE Dressing: SBA Pt performed Ub dressing this date at SBA for completion. Grooming tasks performed seated EOB at SBA after set up with occ cuing for thoroughness this date. Bed Mobility Supine to sit: Contact Guard Sit to supine: Contact Guard Pt performed bed mobility at [facility] for supine to EOB with heavy reliance on bed rails and elevated HOB for completion. Pt denied dizziness with positional changes. Return to supine at [facility] this date with extended time for positioning required. Transfers/Mobility Sitting balance: SBA, Contact Guard Pt sitting EOB at [facility] progressing to SBA with cuing for hand placement for increased support as well as scooting to EOB to place feet on ground for balance with good carryover. Sitting balance ~15min this date before increased fatigue and R hip pain noted. Pt deferred standing this date stating increased pain. Device(s) used: None Plan Continue acute OT per plan of care. Safety/Education Safety Safety Devices in place: All fall risk precautions in place, call light within reach, left in bed, and patient at risk for falls Restraints: No Education Education Given To: patient Education Provided: OT Role, Plan of Care, Transfer Training, Fall Prevention Education, and Benefits of Increasing Activity Education Method: Verbal and Teach Back Barriers to Learning: None Education Outcome: Verbalized Understanding, Demonstrated Understanding, and Continued Education Needed AM-PAC AM-PAC Inpatient Daily Activity Raw Score: 16 ADL Inpatient CMS G-Code Modifier: CK Goals Patient Stated Goal: to have less pain Encounter Problems Encounter Problems (Active) Balance Patient will tolerate standing for 3 minutes with min A at [facility] to allow increased independence in ADLs. (Not Addressed) Start: 06/24/24 Expected End: 07/08/24 Dressing Upper Extremities Patient will complete upper body ADLs mod I. (Slowly Progressing) Start: 06/24/24 Expected End: 07/08/24 Dressings Lower Extremities Patient will complete lower body ADLs min A with AE. (Not Addressed) Start: 06/24/24 Expected End: 07/08/24 Mobility Patient will demonstrate functional ambulation min A at [facility]. (Not Addressed) Start: 06/24/24 Expected End: 07/08/24 Toileting Patient will complete toileting tasks at [facility] with modified independence. (Not Addressed) Start: 06/24/24 Expected End: 07/08/24 Transfers Patient will complete functional transfer with rolling walker with min assist in order to prepare for ambulation. (Not Addressed) Start: 06/24/24 Expected End: 07/08/24 Patient will perform bed mobility with SBA in order to improve independence and prepare for out of bed mobility. (Slowly Progressing) Start: 06/24/24 Expected End: 07/08/24 Therapy Time Individual Co-treatment Time In 0900 Time Out 0924 Minutes 24 Timed Code Treatment Minutes: 24 Minutes (1 TA, 1 ADL) KJ Peace Cosigned by Ramiro Salomon OT at 06/26/2024 1:53 PM EDT Hospitalist Progress Note 06/26/2024 Subjective: Admit Date: 06/23/2024 PCP: WILIAM FERNANDEZ MD Room#: [id number]/[id number] B Interval History: Pain unchanged. Tolerating diet. No cp, sob, cough, n/v, f/c. Weak. Case and plan discussed with patient and CIRO Mendez, separately. All questions answered. 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 Back pain Benign essential HTN 01/29/2015 Blood circulation, collateral CAD (coronary artery disease) mild - dx on cath - neg stress Cerebral artery occlusion with cerebral infarction (HCC) patient states not ever confirmed as stoke Chronic kidney disease COPD (chronic obstructive pulmonary disease) (HCC) COVID-19 05/03 COVID-19 vaccine series completed 09/25/2020 Moderna COVID-19 vaccine series completed 12/04/2020 BOOSTER CS (cervical spondylosis) 12/25/2004 CERVICAL SPINE DJD Difficulty sleeping Dizziness GERD (gastroesophageal reflux disease) History of colonic polyps 06/21/2013 repeat 2019 Hyperlipidemia Hypothyroidism Insomnia 08/15/2014 Joint pain, hip Joint pain, knee Memory difficulties Motion sickness 05/24/2024 Muscle weakness Peripheral polyneuropathy 09/30/2020 Rheumatoid arthritis (HCC) Shortness of breath at rest Sleep apnea resolved with weight loss Snoring SOBOE (shortness of breath on exertion) Type 2 diabetes mellitus (HCC) 03/19/2021 resolved after weight loss LABS: CBC: Recent Labs 06/24/24 0404 06/25/24 0451 06/26/24 0320 WBC 8.1 5.1 4.2 RBC 3.45* 3.39* 3.40* HGB 9.7* 9.4* 9.5* HCT 30.5* 30.2* 29.9* MCV 88.4 89.1 87.9 RDW 13.5 13.2 13.0 PLT 87* 111* 115* BMP: Recent Labs 06/24/24 0404 06/25/24 0451 06/26/24 0320 NA 138 140 140 K 4.1 3.7 3.8 CL 105 109* 108* CO2 22 23 23 BUN 15 15 17 CREATININE 1.17 0.98 1.02 GLUCOSE 111* 101* 90 CALCIUM 8.2* 8.5* 8.5* ANIONGAP 11 8 9 LIVER PROFILE: Recent Labs 06/24/24 0404 06/25/2445006/26/24 0320 AST 33 16 21 ALT <6 <6 6 BILITOT 1.1 0.6 0.5 ALKPHOS 66 74 78 PROT 6.3* 6.1* 6.3* PT/INR: Recent Labs 06/25/24450 PROTIME 12.2* INR 1.1 CARDIAC ENZYMES: No results for input(s): TROPONINI in the last 72 hours. Procalcitonin: Lab Results Component Value Date PROCAL 0.66 (H) 06/24/2024 COVID-19 PCR: No results for input(s): COVID19 in the last 72 hours. Objective: Vitals: BP 116/65 (BP Location: Left arm, Patient Position: Lying) Pulse 71 Temp 36.1 C (97 F) (Temporal) Resp 18 Ht 6' 2 (1.88 m) Wt 281 lb 15.5 oz (128 kg) SpO2 96% BMI 36.20 kg/m Pulse Ox: SpO2 Av % Min: 96 % Max: 96 % Supplemental O2: Physical Exam Vitals and nursing note reviewed. Constitutional: General: He is not in acute distress. Appearance: He is obese. HENT: Head: Normocephalic. Eyes: Extraocular Movements: Extraocular movements intact. Conjunctiva/sclera: Conjunctivae normal. Cardiovascular: Rate and Rhythm: Normal rate and regular rhythm. Pulses: Normal pulses. Heart sounds: Murmur heard. Pulmonary: Effort: Pulmonary effort is normal. Breath sounds: Normal breath sounds. Abdominal: General: Bowel sounds are normal. There is no distension. Palpations: Abdomen is soft. Tenderness: There is no abdominal tenderness. Musculoskeletal: General: Swelling, tenderness and signs of injury present. Cervical back: Normal range of motion. Left lower leg: Edema present. Skin: General: Skin is dry. Capillary Refill: Capillary refill takes less than 2 seconds. Findings: Erythema present. Neurological: General: No focal deficit present. Mental Status: He is alert and oriented to person, place, and time. Psychiatric: Mood and Affect: Mood normal. Medications: Scheduled PRN aspirin, 81 mg, Oral, Daily atorvastatin, 80 mg, Oral, Nightly buPROPion XL, 150 mg, Oral, Daily busPIRone, 10 mg, Oral, BID collagenase, , Topical, Daily DAPTOmycin (Cubicin) 750 mg in sodium chloride 0.9 % 50 mL IVPB, 750 mg, IntraVENous, q24h docusate sodium, 100 mg, Oral, BID enoxaparin, 40 mg, SubCUTAneous, Daily ertapenem, 1,000 mg, IntraVENous, q24h finasteride, 5 mg, Oral, Daily gabapentin, 600 mg, Oral, TID levothyroxine, 75 mcg, Oral, qAM AC Lidocaine, 1 patch, TransDERmal, Daily mometasone-formoterol, 2 puff, Inhalation, BID mupirocin, , Topical, BID pantoprazole, 40 mg, Oral, Daily tamsulosin, 0.4 mg, Oral, Daily PRN medications: acetaminophen OR acetaminophen, albuterol, ALPRAZolam, HYDROmorphone, lidocaine, naloxone, ondansetron ODT OR ondansetron, oxyCODONE, polyethylene glycol (PEG) 3350 Continuous Assessment LLE cellulitis LLE wound s/p recent closure Anemia Thrombocytopenia better Recent R GEORGE Back pain HTN Pafib CAD COPD Hyperlipidemia Hypothyroidism CKD stage 2 GERD BPH Depression Obesity Plan Continue IV antibiotics, continue pain control- continue IV and patch and cream, add roxicodone, ID following, wound care following, follow up culture of wound and blood cultures, increase activity, continue lovenox, PT/OT, follow up labs, discharge planning, see orders. - am labs, replace lytes prn - PT/OT/CM/SW - delirium precautions: increase activity - DVT prophylaxis: enoxaparin and encourage ambulation Advance Directive: Full Code Anticipated Discharge - Date - 06/27-06/28 - Location - Home with Home Health Care vs skilled facility (does not want SNF) - Pending the following - clinical improvement, completion of work up, disposition finalization, antibiotic finalization and when OK with ID Total time spent (which include face to face and non face to face encounters) : 46 minutes Toxic drug monitoring/narrow therapeutic index drug monitoring : # Drug name : lovenox # Route administered : subcutaneous # Method of monitoring : daily CBC Extended Emergency Contact Information Primary Emergency Contact: Ellie Hicks Relation: Spouse Motor Builder Assembler needed? No Yadiel Boss MD Division of Hospitalist Medicine [facility] Infectious Disease Follow-Up Note Rx: Daptomycin (gram-positive coverage) Cx: Just obtained and still pending Dx: Post-traumatic wound infection after suturing of open wound from falling on step Subjective. Still complains of pain medication not lasting. Less pain and less redness of leg. Objective. Marked decrease in area of erythema but still with drainage from the wound. Assessment. Post-suturing wound infection after traumatic laceration of left lower leg. Cultures pending. No evidence of right GEORGE wound infection (superficial or deep) Plan. Continue daptomycin pending cultures. Add some Gram-negative coverage pending cultures: ertapenem Discussed with patient. I am uncomfortable modifying pain medication further especially with his improvement. > 25 minutes spent on this evaluation. Wiliam Salomon M.D. [facility], Infectious Diseases (1) Cell (Call or Text) (2) Light Chaser Animation Chat: Available (3) ID Answering Service: Hospitalist Progress Note 06/25/2024 Subjective: Admit Date: 06/23/2024 PCP: WILIAM FERNANDEZ MD Room#: [id number]/[id number] B Interval History: Remains weak. No cp, sob, cough, n/v, f/c. Tolerating diet. Pain persists in leg and has low back pain persistently. Case and plan discussed with patient and CIRO Gurrola, separately. All questions answered. Adult diet Regular 24HR INTAKE/OUTPUT: Intake/Output Summary (Last 24 hours) at 06/25/2024 1056 Last data filed at 06/25/2024 0844 Gross per 24 hour Intake 50 ml Output 725 ml Net -675 ml 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 Back pain Benign essential HTN 01/29/2015 Blood circulation, collateral CAD (coronary artery disease) mild - dx on cath - neg stress Cerebral artery occlusion with cerebral infarction (HCC) patient states not ever confirmed as stoke Chronic kidney disease COPD (chronic obstructive pulmonary disease) (HCC) COVID-19 05/03 COVID-19 vaccine series completed 09/25/2020 Moderna COVID-19 vaccine series completed 12/04/2020 BOOSTER CS (cervical spondylosis) 12/25/2004 CERVICAL SPINE DJD Difficulty sleeping Dizziness GERD (gastroesophageal reflux disease) History of colonic polyps 06/21/2013 repeat 2019 Hyperlipidemia Hypothyroidism Insomnia 08/15/2014 Joint pain, hip Joint pain, knee Memory difficulties Motion sickness 05/24/2024 Muscle weakness Peripheral polyneuropathy 09/30/2020 Rheumatoid arthritis (HCC) Shortness of breath at rest Sleep apnea resolved with weight loss Snoring SOBOE (shortness of breath on exertion) Type 2 diabetes mellitus (HCC) 03/19/2021 resolved after weight loss LABS: CBC: Recent Labs 06/23/24 1119 06/24/24 0404 06/25/24 0451 WBC 8.5 8.1 5.1 RBC 4.06* 3.45* 3.39* HGB 11.3* 9.7* 9.4* HCT 35.4* 30.5* 30.2* MCV 87.2 88.4 89.1 RDW 13.2 13.5 13.2 PLT 93* 87* 111* BMP: Recent Labs 06/23/24 1119 06/24/24 0404 06/25/24 0451 NA 134* 138 140 K 3.8 4.1 3.7 CL 103 105 109* CO2 21* 22 23 BUN 13 15 15 CREATININE 1.24 1.17 0.98 GLUCOSE 106* 111* 101* CALCIUM 8.8 8.2* 8.5* ANIONGAP 10 11 8 LIVER PROFILE: Recent Labs 06/24/24 0404 06/25/24 0451 AST 33 16 ALT <6 <6 BILITOT 1.1 0.6 ALKPHOS 66 74 PROT 6.3* 6.1* PT/INR: Recent Labs 06/25/24 0451 PROTIME 12.2* INR 1.1 CARDIAC ENZYMES: No results for input(s): TROPONINI in the last 72 hours. Procalcitonin: Lab Results Component Value Date PROCAL 0.66 (H) 06/24/2024 COVID-19 PCR: No results for input(s): COVID19 in the last 72 hours. Objective: Vitals: BP 120/54 (BP Location: Right arm, Patient Position: Lying) Pulse 82 Temp 36.1 C (96.9 F) (Temporal) Resp 17 Ht 6' 2 (1.88 m) Wt 281 lb 15.5 oz (128 kg) SpO2 94% BMI 36.20 kg/m Pulse Ox: SpO2 Av % Min: 94 % Max: 96 % Supplemental O2: Physical Exam Vitals and nursing note reviewed. Constitutional: General: He is not in acute distress. Appearance: He is obese. HENT: Head: Normocephalic and atraumatic. Mouth/Throat: Pharynx: Oropharynx is clear. Eyes: Extraocular Movements: Extraocular movements intact. Pupils: Pupils are equal, round, and reactive to light. Cardiovascular: Rate and Rhythm: Normal rate and regular rhythm. Pulses: Normal pulses. Heart sounds: Murmur heard. Pulmonary: Effort: Pulmonary effort is normal. Breath sounds: Normal breath sounds. Abdominal: General: Bowel sounds are normal. There is no distension. Palpations: Abdomen is soft. Tenderness: There is no abdominal tenderness. Musculoskeletal: General: Swelling, tenderness and signs of injury present. Normal range of motion. Cervical back: Neck supple. Right lower leg: No edema. Left lower leg: Edema present. Skin: General: Skin is warm. Capillary Refill: Capillary refill takes less than 2 seconds. Findings: Erythema and lesion present. Neurological: General: No focal deficit present. Mental Status: He is alert and oriented to person, place, and time. Psychiatric: Mood and Affect: Mood normal. Medications: Scheduled PRN aspirin, 81 mg, Oral, Daily atorvastatin, 80 mg, Oral, Nightly buPROPion XL, 150 mg, Oral, Daily busPIRone, 10 mg, Oral, BID collagenase, , Topical, Daily DAPTOmycin (Cubicin) 750 mg in sodium chloride 0.9 % 50 mL IVPB, 750 mg, IntraVENous, q24h docusate sodium, 100 mg, Oral, BID [Held by provider] enoxaparin, 40 mg, SubCUTAneous, Daily finasteride, 5 mg, Oral, Daily gabapentin, 600 mg, Oral, TID levothyroxine, 75 mcg, Oral, qAM AC Lidocaine, 1 patch, TransDERmal, Daily mometasone-formoterol, 2 puff, Inhalation, BID mupirocin, , Topical, BID pantoprazole, 40 mg, Oral, Daily tamsulosin, 0.4 mg, Oral, Daily PRN medications: acetaminophen OR acetaminophen, albuterol, ALPRAZolam, HYDROmorphone, lidocaine, naloxone, ondansetron ODT OR ondansetron, polyethylene glycol (PEG) 3350 Continuous Assessment LLE cellulitis LLE wound s/p recent closure Anemia Thrombocytopenia better Recent R GEORGE Back pain HTN Pafib CAD COPD Hyperlipidemia Hypothyroidism CKD stage 2 GERD BPH Depression Obesity Plan Continue IV antibiotics, continue pain control-IV, patch, cream, ID following, wound care following, follow up culture of wound and blood cultures, increase activity, resume lovenox, PT/OT, follow up labs, discharge planning, see orders. - am labs, replace lytes prn - PT/OT/CM/SW - delirium precautions: increase activity - DVT prophylaxis: enoxaparin and encourage ambulation Advance Directive: Full Code Anticipated Discharge - Date - 06/27-06/28 - Location - Home with Home Health Care vs skilled facility (does not want SNF) - Pending the following - clinical improvement, completion of work up, disposition finalization, antibiotic finalization and when OK with ID Total time spent (which include face to face and non face to face encounters) : 45 minutes Toxic drug monitoring/narrow therapeutic index drug monitoring : # Drug name : lovenox # Route administered : subcutaneous # Method of monitoring : daily CBC Extended Emergency Contact Information Primary Emergency Contact: Ellie Hicks Relation: Spouse Motor Builder Assembler needed? No Yadiel Boss MD Division of Hospitalist Medicine [facility] Infectious Disease Remote Review Wound culture obtained. Current antimicrobial therapy: Daptomycin d.2 Awaiting wound culture to see if we can change to some oral alternative and eventually send him home. No evidence that his Right GEORGE (recent) is infected. Afebrile and no reason even to obtain blood cultures. Wiliam Salomon M.D. [facility], Infectious Diseases (1) Cell (Call or Text) (2) Light Chaser Animation Chat: Available (3) ID Answering Service: Images from the original note were not included. PHYSICAL THERAPY [facility] Initial Evaluation Name/MRN: Titi Hicks ([id number]) Evaluation Date: 06/24/2024 Date of : 1965 Admission Date: 06/23/2024 9:57 AM Age: 58 y.o. [facility] Discharge Recommendation: [facility] Assessment IMPRESSION: Pt is a 58yo male admitted to ED on 06/23 with pain and swelling in L LE. Pt had recent fall at home. Pt is also s/p R GEORGE on 05/27. Duplex (-). Prior to admission, pt lived with spouse and performed functional mobility and ADLs independently with FWW since surgery. On eval, pt required SBA-Mod A for bed mobility. Pt only sat EOB and refused attempts for transfer due to B LE pain. Pt is limited by pain, weakness, and decreased insight. Pt will benefit from skilled PT services in order to increase safety and independence in functional mobility. Recommend SNF at discharge. Admitting Diagnosis: L LE swelling Prognosis: good Performance Deficits /Impairments: Increased Pain, Decreased Functional Mobility, Decreased ADL status, Decreased Strength, Decreased Safety Awareness, Decreased Endurance, Decreased Balance, Decreased ROM, and Decreased High Level IADLs Decision Making: Medium Complexity Subjective Pt supine in bed, agreeable to session. Per RN, pt okay for therapy. Observation: L LE wounds (currently wrapped), R hip incision with slight opening at top (dressing over). Pain: 0-10 pain scale: 9/10 Location: R hip 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 Back pain Benign essential HTN 01/29/2015 Blood circulation, collateral CAD (coronary artery disease) mild - dx on cath - neg stress Cerebral artery occlusion with cerebral infarction (HCC) patient states not ever confirmed as stoke Chronic kidney disease COPD (chronic obstructive pulmonary disease) ([facility]) COVID-19 05/03 COVID-19 vaccine series completed 09/25/2020 Moderna COVID-19 vaccine series completed 12/04/2020 BOOSTER CS (cervical spondylosis) 12/25/2004 CERVICAL SPINE DJD Difficulty sleeping Dizziness GERD (gastroesophageal reflux disease) History of colonic polyps 06/21/2013 repeat 2019 Hyperlipidemia Hypothyroidism Insomnia 08/15/2014 Joint pain, hip Joint pain, knee Memory difficulties Motion sickness 05/24/2024 Muscle weakness Peripheral polyneuropathy 09/30/2020 Rheumatoid arthritis (HCC) Shortness of breath at rest Sleep apnea resolved with weight loss Snoring SOBOE (shortness of breath on exertion) Type 2 diabetes mellitus (HCC) 03/19/2021 resolved after weight loss Past Surgical History: Past Surgical History: Procedure Laterality Date APPENDECTOMY BARIATRIC SURGERY 12/03/2021 Dr. Trevino CARDIAC CATHETERIZATION 12/17/2013 NORMAL CORONARY ARTERIES AND LVEF. COLONOSCOPY COLONOSCOPY 2020 CYSTOSCOPY 10/26/2020 CYSTOSCOPY 11/19/2020 CYSTOSCOPY 09/16/2023 EGD (HISTORICAL) 03/02/2023 NECK SURGERY Posterior cervical fusion PANNICULECTOMY (HISTORICAL) 09/23/2023 ROTATOR CUFF REPAIR Bilateral 2023 both surgeries UPPER GASTROINTESTINAL ENDOSCOPY 01/24/2021 Dr. 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 Obesity, Class III, BMI 40-49.9 (morbid obesity) ([facility]) 11/11/2019 History of colonic polyps 01/29/2015 Hyperlipidemia 02/25/2021 Benign essential HTN 10/01/2020 Multiple joint pain 10/01/2020 CAD (coronary artery disease) 10/01/2020 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, thoracic 10/01/2020 Degenerative disc disease, lumbar 10/01/2020 Peripheral polyneuropathy 10/01/2020 Chronic back pain 10/01/2020 GERD (gastroesophageal reflux disease) 10/01/2020 Occlusion and stenosis of bilateral carotid arteries 09/30/2020 Urinary hesitancy 09/30/2020 Cervical spondylosis 09/30/2020 Nephrotic syndrome with membranous glomerulonephritis 09/30/2020 Disorder of bladder 09/30/2020 Cervicalgia 09/30/2020 History of snoring 09/18/2020 Hx: nephrotic syndrome 08/26/2020 DJD (degenerative joint disease) of cervical spine 07/25/2020 Neurological symptoms 07/25/2020 TIA (transient ischemic attack) 07/23/2020 Medical Precautions: No active isolations Proper PPE donned/doffed in accordance with facility standards. Fall Risk: Hanson Fall Risk Score: 70 (Low Risk) Hanson Fall Risk Score: 70 (High Risk) Precautions/Restrictions: Right LE Weight Bearing: Weight Bearing As Tolerated Hip Precautions: Anterior Hip Precautions Family/Caregiver Present: none Overall Cognitive Status: WFL Overall Orientation Status: Oriented x4 Vision: wears glasses at all times and and are being used during the eval Hearing: normal Social/Functional History Patient admitted from home. Lives With: Spouse Type of Home: single family home Home Layout: Single Level Home Home Access: Ramped Entrance Bathroom Shower/Tub: Tub/Shower Combo and Tub transfer bench Toilet: Handicap Height and Grab Bars Home Equipment: front wheeled walker, rollator, cane, tub transfer bench, grab bars, and lift chair Homemaking Responsibilities: Independent Receives Help From: Spouse Active Crusher Supervisor: Yes Prior Level of Function Prior Level of ADL Function: Independent Prior Level of Mobility: Independent; Device: Front wheeled walker Prior Level of Transfers: Independent Objective Lower Extremity Assessment AROM: Impaired: Pt impaired in ROM of B LE due to pain in B LE. Strength: Exceptions: Pt limited in B LE strength due to pain. Unable to formally test. Bed Mobility: Supine to sit: SBA Sit to supine: Mod Assist Pt completes supine to sit with SBA. Pt completes with increased time and effort. Use of bedrails with HOB elevated. Pt sat on EOB ~6 min. Pt reports increased pain in B LE when sitting EOB. Reports of increased burning pain in L LE. Pt completes sit to supine with Mod A for assisting with lifting B LE into bed. Transfers Pt refused attempt at standing due to pain in B LE when sitting EOB. Encouraged with offering to get 2nd person and elevating bed height, but pt refused at this time. Ambulation Did not assess this session. Outcome Measures AM-PAC How much HELP from another person do you currently need Turning from your back to your side while in a flat bed without using bedrails?: A Little Moving from lying on your back to sitting on the side of a flat bed without using bedrails?: A Little Moving to and from a bed to a chair (including a wheelchair)?: Total Standing up from a chair using your arms (wheelchair or bedside chair)?: Total Walking in a hospital room?: Total Stair climbing assessed?: No AM-PAC Inpatient Mobility Raw Score (No Stairs) : 9 JH-HLM -HLM Score: Sat at edge of bed Plan Pt would benefit from skilled acute PT services to address Strengthening, ROM, Gait Training, Balance Training, Self-Care/ADL Training, Functional Mobility Training, Endurance Training, Safety Education and Training, Neuromuscular Re-Education Training, and Home Management Training. Frequency: 7 visits during current hospital admission or until additional recommendations are made Barriers: Pain, Impaired balance, Lower extremity weakness, Decreased endurance, and Limited insight into deficits Safety/Education Safety Safety Devices in place: All fall risk precautions in place, call light within reach, left in bed, gait belt, patient at risk for falls, nurse notified, and no alarms engaged upon entry Restraints: No Education Education Given To: patient Education Provided: PT Role, PT Goals, Plan of Care, Precautions, Transfer Training, Discharge Recommendations, and Benefits of Increasing Activity Education Method: Verbal and Demonstration Barriers to Learning: None Education Outcome: Verbalized Understanding, Demonstrated Understanding, and Continued Education Needed Goals Patient Stated Goal: to have less pain. Encounter Problems Encounter Problems (Active) Balance Patient will maintain dynamic standing balance for 3 minutes with SBA in order to demonstrate decreased risk of falling. Start: 06/24/24 Expected End: 07/04/24 Exercise Patient will complete lower extremity exercises for 1-2 sets / 5-10 reps in order to improve strength and activity tolerance for mobility. Start: 06/24/24 Expected End: 07/04/24 Mobility Patient will ambulate 100 feet with SBA and least restrictive device in order to improve safety and independence with mobility. Start: 06/24/24 Expected End: 07/04/24 Transfers Patient will perform bed mobility with modified independence in order to improve independence and prepare for out of bed mobility. Start: 06/24/24 Expected End: 07/04/24 Patient will complete functional transfer with least restrictive device with modified independence in order to prepare for ambulation. Start: 06/24/24 Expected End: 07/04/24 Therapy Time Individual Co-Treatment Co-Evaluation Time In 1417 Time Out 1427 Minutes 10 Charlene Arriaga PT Patient's Physical Therapy Plan of Care supervision is transferred to a [facility] Therapy Services Physical Therapist. Goals and/or treatment plan was established in collaboration with patient/family/other representatives. Nutrition Assessment Type and Reason for Visit: Initial, Consult Nutrition Recommendations/Plan: Continue Adult diet Regular, encourage protein intake, pt refusing supplements at this time including elaine Consider Vit C, Zinc (if deficient) for wound healing per MD discretion Please record po intakes in RN flowsheet. RD to monitor labs, wt, po intake, skin status/wound healing and follow up weekly. Malnutrition Assessment: Malnutrition Status: At risk for malnutrition (Comment) (wound healing and hx of gastric sleeve) Context: Acute Illness Findings of the 6 clinical characteristics of malnutrition: Energy Intake: No significant decrease in energy intake Weight Loss: (intentional wt loss due to gastric sleeve) Body Fat Loss: Unable to assess Muscle Mass Loss: No significant muscle mass loss Fluid Accumulation: Mild Extremities Stream Control Officer Strength: Not Performed Nutrition Assessment: Pt is 58 y.o. male with history of CAD, TIA, bariatric surgery/gastric sleeve, who presents to the emergency department with chief complaint of left lower extremity pain and fall. Patient reports he had a wound repair last week, and was doing well however his pain has been worsening at the area of his wound repair after fall. Intentional wt loss due to gastric sleeve 485 lb to 265 lb. Pt claims target wt loss goal is 238# however Pt does not follow up at wt managment clinic at this time. 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 (Simultaneous filing. User may not have seen previous data.) Estimated Daily Nutrient Needs: Energy Requirements Based On: Kcal/kg Weight Used for Energy Requirements: [place] Weight for Energy Calculation (kg): 86.18 kg Total Energy Requirements (kcals/day): 2155 - 2,585kcal/kg (25-30kcal/kg) Weight Used for Protein Requirements: [place] Weight in Kg Used for Protein Requirements: 86.18 kg Estimated Total Protein (g/day): 112 - 129g/kg (1.3-1.5g/kg) Estimated Daily Total Fluid (ml/day): per MD Nutrition Related Findings: GERD, Gastric Sleeve, Glu 176, 106, 11, Alb 2.9. Meds: Lipitor, Colace, Cubicin, Wound Type: Surgical Incision (Acute cellulitis of left lower leg s/p fall on step with plastic edge sutures in place. No evidence of right GEORGE infection (12 days ago replaced)) Current Nutrition Therapies: Adult diet Regular Current Oral Intake Average Meal Intake: 76-100% Average Supplements Intake: None Ordered Anthropometric Measures: Height: 188 cm (6' 2) Current Body Weight: 130 kg (287 lb) Admission Body Weight: 130 kg (287 lb) Usual Body Weight: 129 kg (285 lb) % Weight Change (Calculated): 0.7 [place] Body Weight (lbs) (Calculated): 190 lbs [place] Body Weight (Kg) (Calculated): 86 kg % [place] Body Weight (Calculated): 151.1 % BMI (kg/m2) (Calculated): 36.8 Weight Adjustment For: No Adjustment BMI Categories: Obese Class 2 (BMI 35.0 -39.9) Nutrition Diagnosis: Increased nutrient needs related to acute injury/trauma as evidenced by wounds Nutrition Interventions: Nutrition Education/Counseling: No recommendation at this time Coordination of Nutrition Care: Continue to monitor while inpatient Plan of Care discussed with: Patient Goals: Goals: PO intake 75% or greater, by next RD assessment Nutrition Monitoring and Evaluation: Behavioral-Environmental Outcomes: None Identified Food/Nutrient Intake Outcomes: None Identified Physical Signs/Symptoms Outcomes: Biochemical Data, Hemodynamic Status, Nutrition Focused Physical Findings, Skin, Weight, GI Status, Nausea or Vomiting, Fluid Status or Edema Discharge Planning: Continue current diet Rodrigo Kitchen Contact: *[phone] or via Secure Chat Images from the original note were not included. OCCUPATIONAL THERAPY [facility] Initial Evaluation Name/MRN: Titi Hicks ([id number]) Evaluation Date: 06/24/2024 Date of : 1965 Admission Date: 06/23/2024 9:57 AM Age: 58 y.o. Room[facility]Bed: [facility] Discharge Recommendation: [facility] Facility Assessment IMPRESSION: Prior to admission, pt was independent in ADLs, functional transfers and mobility with fww since sx. Pt now requires SBA-max A for ADLs, mod A for bed mobility and inability to stand. Pt is limited by pain, and impaired balance and endurance. Pt should benefit from skilled OT services in order to increase safety and independence in occupational participation. Admitting Diagnosis: Pt admitted with fall, weakness and BLE pain/swelling- venous duplex -. H/o R GEORGE 05/28. Performance Deficits /Impairments: Increased Pain, Decreased Functional Mobility, Decreased ADL status, Decreased Endurance, Decreased Balance, and Decreased High Level IADLs Prognosis: Good Decision Making: Medium Complexity Subjective Pt pleasant and cooperative. Per RN, ok for pt to participate in OT eval. R hip incision with slight opening on top, LLE wounds. Pain: 0-10 pain scale: 9/10 Location: R hip 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 Back pain Benign essential HTN 01/29/2015 Blood circulation, collateral CAD (coronary artery disease) mild - dx on cath - neg stress Cerebral artery occlusion with cerebral infarction (HCC) patient states not ever confirmed as stoke Chronic kidney disease COPD (chronic obstructive pulmonary disease) (HCC) COVID-19 05/03 COVID-19 vaccine series completed 09/25/2020 Moderna COVID-19 vaccine series completed 12/04/2020 BOOSTER CS (cervical spondylosis) 12/25/2004 CERVICAL SPINE DJD Difficulty sleeping Dizziness GERD (gastroesophageal reflux disease) History of colonic polyps 06/21/2013 repeat 2019 Hyperlipidemia Hypothyroidism Insomnia 08/15/2014 Joint pain, hip Joint pain, knee Memory difficulties Motion sickness 05/24/2024 Muscle weakness Peripheral polyneuropathy 09/30/2020 Rheumatoid arthritis (HCC) Shortness of breath at rest Sleep apnea resolved with weight loss Snoring SOBOE (shortness of breath on exertion) Type 2 diabetes mellitus (HCC) 03/19/2021 resolved after weight loss Past Surgical History: Past Surgical History: Procedure Laterality Date APPENDECTOMY BARIATRIC SURGERY 12/03/2021 Dr. Trevino CARDIAC CATHETERIZATION 12/17/2013 NORMAL CORONARY ARTERIES AND LVEF. COLONOSCOPY COLONOSCOPY 2020 CYSTOSCOPY 10/26/2020 CYSTOSCOPY 11/19/2020 CYSTOSCOPY 09/16/2023 EGD (HISTORICAL) 03/02/2023 NECK SURGERY Posterior cervical fusion PANNICULECTOMY (HISTORICAL) 09/23/2023 ROTATOR CUFF REPAIR Bilateral 2023 both surgeries UPPER GASTROINTESTINAL ENDOSCOPY 01/24/2021 Dr. Cabello Admission Diagnosis: Patient Active Problem List Diagnosis Date Noted Pain and swelling of left lower leg 06/23/2024 Arthritis of right hip 05/27/2024 Motion sickness 05/24/2024 Arthropathy of spinal facet joint 05/10/2024 Diabetic neuropathy (HCC) 05/10/2024 Herniated lumbar intervertebral disc 05/10/2024 Pain of lower extremity 05/10/2024 Postlaminectomy syndrome of cervical region 05/10/2024 Shoulder pain 05/10/2024 Abdominal pannus 09/23/2023 Awareness under anesthesia 09/15/2023 Hematuria 08/18/2023 Thrombocytopenia, unspecified ([facility]) 01/14/2022 Deficiency of multiple nutrient elements 12/05/2021 Obesity, Class III, BMI 40-49.9 (morbid obesity) ([facility]) 11/11/2019 History of colonic polyps 01/29/2015 Hyperlipidemia 02/25/2021 Benign essential HTN 10/01/2020 Multiple joint pain 10/01/2020 CAD (coronary artery disease) 10/01/2020 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, thoracic 10/01/2020 Degenerative disc disease, lumbar 10/01/2020 Peripheral polyneuropathy 10/01/2020 Chronic back pain 10/01/2020 GERD (gastroesophageal reflux disease) 10/01/2020 Occlusion and stenosis of bilateral carotid arteries 09/30/2020 Urinary hesitancy 09/30/2020 Cervical spondylosis 09/30/2020 Nephrotic syndrome with membranous glomerulonephritis 09/30/2020 Disorder of bladder 09/30/2020 Cervicalgia 09/30/2020 History of snoring 09/18/2020 Hx: nephrotic syndrome 08/26/2020 DJD (degenerative joint disease) of cervical spine 07/25/2020 Neurological symptoms 07/25/2020 TIA (transient ischemic attack) 07/23/2020 Medical Precautions: No active isolations Proper PPE donned/doffed in accordance with facility standards. Fall Risk: Hanson Fall Risk Score: 85 (Low Risk) Hanson Fall Risk Score: 85 (High Risk) Precautions/Restrictions: Right LE Weight Bearing: Weight Bearing As Tolerated Hip Precautions: Anterior Hip Precautions, No Straight Leg Raises, and Avoid Extremes of Motion Family/Caregiver Present: none Overall Cognitive Status: WFL Overall Orientation Status: Oriented x4 Social/Functional History Patient admitted from home. 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 Upper Extremity Assessment AROM: WFL PROM: WFL Strength: WFL Bed Mobility Supine to sit: Mod Assist, assist to elevate trunk and fully manage BLE/hips to EOB Sit to supine: Mod Assist, assist to manage BLE into bed Scooting: Mod Assist, to scoot to EOB HOB Elevated Use of bed rail(s) Pt required VC for initiation and sequencing with increased time to complete. Denied dizziness with changes in positioning. Transfers/Mobility Attempted to complete STS, however, despite max A and VC for safe BUE/BLE placement, pt unable to clear hips d/t pain and weakness. Device(s) used: Front wheeled walker AM-PAC AM-PAC Inpatient Daily Activity Raw Score: 16 ADL Inpatient CMS G-Code Modifier: CK Plan Pt would benefit from skilled acute OT services to address Balance Training, Self-Care/ADL Training, Functional Mobility Training, Endurance Training, Safety Education and Training, Equipment Evaluation/Education, Patient/Caregiver Training, and Positioning. Frequency: 7 visits during current hospital admission or until additional recommendations are made Barriers: Pain, Impaired balance, and Decreased endurance Safety/Education Safety Safety Devices in place: All fall risk precautions in place, call light within reach, left in bed, gait belt, patient at risk for falls, nurse notified, and no alarms engaged upon entry Restraints: No Education Education Given To: patient Education Provided: OT Role, Plan of Care, Transfer Training, Equipment, Fall Prevention Education, Discharge Recommendations, and Benefits of Increasing Activity Education Method: Verbal Barriers to Learning: None Education Outcome: Verbalized Understanding, Demonstrated Understanding, and Continued Education Needed Goals Patient Stated Goal: to have less pain Encounter Problems Encounter Problems (Active) Balance Patient will tolerate standing for 3 minutes with min A at fww to allow increased independence in ADLs. Start: 06/24/24 Expected End: 07/08/24 Dressing Upper Extremities Patient will complete upper body ADLs mod I. Start: 06/24/24 Expected End: 07/08/24 Dressings Lower Extremities Patient will complete lower body ADLs min A with AE. Start: 06/24/24 Expected End: 07/08/24 Mobility Patient will demonstrate functional ambulation min A at fww. Start: 06/24/24 Expected End: 07/08/24 Toileting Patient will complete toileting tasks at [facility]/standard toilet with modified independence. Start: 06/24/24 Expected End: 07/08/24 Transfers Patient will complete functional transfer with rolling walker with min assist in order to prepare for ambulation. Start: 06/24/24 Expected End: 07/08/24 Patient will perform bed mobility with SBA in order to improve independence and prepare for out of bed mobility. Start: 06/24/24 Expected End: 07/08/24 Therapy Time Individual Co-Treatment Co-Evaluation Time In 0921 Time Out 0933 Minutes 12 Renetta Vazquez OT Patient's Occupational Therapy Plan of Care supervision is transferred to a [facility] Therapy Services Occupational Therapist. Goals and/or treatment plan was established in collaboration with patient/family/other representatives. Hospitalist Progress Note 06/24/2024 Subjective: Admit Date: 06/23/2024 PCP: WILIAM FERNANDEZ MD Room#: G5-378/O0-706 B Interval History: Pain about the same. Difficulty bearing weight. No cp, sob, cough, n/v, f/c. Tolerating diet. Weak. Case and plan discussed with patient. All questions answered. 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 Back pain Benign essential HTN 01/29/2015 Blood circulation, collateral CAD (coronary artery disease) mild - dx on cath - neg stress Cerebral artery occlusion with cerebral infarction (HCC) patient states not ever confirmed as stoke Chronic kidney disease COPD (chronic obstructive pulmonary disease) (HCC) COVID-19 05/03 COVID-19 vaccine series completed 09/25/2020 Moderna COVID-19 vaccine series completed 12/04/2020 BOOSTER CS (cervical spondylosis) 12/25/2004 CERVICAL SPINE DJD Difficulty sleeping Dizziness GERD (gastroesophageal reflux disease) History of colonic polyps 06/21/2013 repeat 2019 Hyperlipidemia Hypothyroidism Insomnia 08/15/2014 Joint pain, hip Joint pain, knee Memory difficulties Motion sickness 05/24/2024 Muscle weakness Peripheral polyneuropathy 09/30/2020 Rheumatoid arthritis (HCC) Shortness of breath at rest Sleep apnea resolved with weight loss Snoring SOBOE (shortness of breath on exertion) Type 2 diabetes mellitus (HCC) 03/19/2021 resolved after weight loss LABS: CBC: Recent Labs 06/23/24 1119 06/24/24 0404 WBC 8.5 8.1 RBC 4.06* 3.45* HGB 11.3* 9.7* HCT 35.4* 30.5* MCV 87.2 88.4 RDW 13.2 13.5 PLT 93* 87* BMP: Recent Labs 06/23/24 1119 06/24/24 0404 NA 134* 138 K 3.8 4.1 CL 103 105 CO2 21* 22 BUN 13 15 CREATININE 1.24 1.17 GLUCOSE 106* 111* CALCIUM 8.8 8.2* ANIONGAP 10 11 LIVER PROFILE: Recent Labs 06/24/24 0404 AST 33 ALT <6 BILITOT 1.1 ALKPHOS 66 PROT 6.3* PT/INR: No results for input(s): PROTIME, INR in the last 72 hours. CARDIAC ENZYMES: No results for input(s): TROPONINI in the last 72 hours. Procalcitonin: Lab Results Component Value Date PROCAL 0.66 (H) 06/24/2024 COVID-19 PCR: No results for input(s): COVID19 in the last 72 hours. Objective: Vitals: BP 102/53 (BP Location: Right arm, Patient Position: Lying) Pulse 82 Temp (!) 35.8 C (96.5 F) (Temporal) Resp 18 Ht 6' 2 (1.88 m) Wt 287 lb 9.6 oz (130 kg) SpO2 96% BMI 36.93 kg/m Pulse Ox: SpO2 Av.1 % Min: 94 % Max: 100 % Supplemental O2: Physical Exam Vitals and nursing note reviewed. Constitutional: General: He is not in acute distress. Appearance: He is obese. HENT: Head: Normocephalic. Mouth/Throat: Mouth: Mucous membranes are dry. Eyes: Extraocular Movements: Extraocular movements intact. Cardiovascular: Rate and Rhythm: Normal rate and regular rhythm. Pulses: Normal pulses. Heart sounds: Murmur heard. Pulmonary: Effort: Pulmonary effort is normal. Breath sounds: Normal breath sounds. Abdominal: General: Bowel sounds are normal. There is no distension. Palpations: Abdomen is soft. Tenderness: There is no abdominal tenderness. Musculoskeletal: General: Swelling, tenderness and signs of injury present. Cervical back: Normal range of motion. Right lower leg: No edema. Left lower leg: Edema present. Skin: General: Skin is dry. Capillary Refill: Capillary refill takes less than 2 seconds. Findings: Bruising, erythema and lesion present. Neurological: General: No focal deficit present. Mental Status: He is alert and oriented to person, place, and time. Psychiatric: Mood and Affect: Mood normal. Medications: Scheduled PRN aspirin, 81 mg, Oral, Daily atorvastatin, 80 mg, Oral, Nightly buPROPion XL, 150 mg, Oral, Daily busPIRone, 10 mg, Oral, BID DAPTOmycin (Cubicin) 750 mg in sodium chloride 0.9 % 50 mL IVPB, 750 mg, IntraVENous, q24h docusate sodium, 100 mg, Oral, BID [Held by provider] enoxaparin, 40 mg, SubCUTAneous, Daily finasteride, 5 mg, Oral, Daily gabapentin, 600 mg, Oral, TID levothyroxine, 75 mcg, Oral, qAM AC mometasone-formoterol, 2 puff, Inhalation, BID mupirocin, , Topical, BID pantoprazole, 40 mg, Oral, Daily tamsulosin, 0.4 mg, Oral, Daily PRN medications: acetaminophen OR acetaminophen, albuterol, ALPRAZolam, HYDROmorphone, lidocaine, naloxone, ondansetron ODT OR ondansetron, polyethylene glycol (PEG) 3350 Continuous Assessment LLE cellulitis LLE wound s/p recent closure Anemia Thrombocytopenia Recent R GEORGE HTN Pafib CAD COPD Hyperlipidemia Hypothyroidism CKD stage 2 GERD BPH Depression Obesity Plan Continue IV antibiotics-adjusted per ID, continue pain control, ID following, wound care evaluation, check culture of wound, increase activity, PT/OT, follow up labs, discharge planning, see orders. - am labs, replace lytes prn - PT/OT/CM/SW - delirium precautions: increase activity - DVT prophylaxis: enoxaparin and encourage ambulation Advance Directive: Full Code Anticipated Discharge - Date - 06/25-06/27 - Location - Home with Home Health Care vs skilled facility - Pending the following - clinical improvement, completion of work, disposition finalization up and when OK with ID Total time spent (which include face to face and non face to face encounters) : 47 minutes Toxic drug monitoring/narrow therapeutic index drug monitoring : # Drug name : lovenox # Route administered : subcutaneous # Method of monitoring : daily CBC Extended Emergency Contact Information Primary Emergency Contact: Ellie Hicks Relation: Spouse Motor Builder Assembler needed? No Yadiel Boss MD Division of Hospitalist Medicine [facility] documented in this encounter [facility] 06-29-2024 Note Formatting of this n ote might be different from the original. Care Management Progress Note Patient remains on 4S today for LLE pain and swelling. Fall with noted BL weakness. Continued tx of LLE cellulitis. Dapto/Invanz continued IV. Following cx, + MRSA. ID following for infected sutured laceration wound, anterior left lower leg, draining purulent material per note. Possible removal of sutures needed to increase drainage from wound. Pain control. PT rec SNF pending progress. OT note today, ADL function is independent. Patient declining SNF. 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 Noted, patient will pay for IV supplies/drugs OOP/Self pay. CM will follow up with discharge planning. Length of Stay (Days): 6 GMLOS: 2.9 [facility] 06-29-2024 Note Formatting of this n ote might be different from the original. Care Management Progress Note Patient remains on 4S today for LLE pain and swelling. Fall with noted BL weakness. Continued tx of LLE cellulitis. Dapto/Invanz continued IV. Following cx, + MRSA. ID following for infected sutured laceration wound, anterior left lower leg, draining purulent material per note. Possible removal of sutures needed to increase drainage from wound. Pain control. PT rec SNF pending progress. OT note today, ADL function is independent. Patient declining SNF. [facility] following for fdc ATBX needs, waiting on ID final recs. Noted, patient will pay for IV supplies/drugs OOP/Self pay. CM will follow up with discharge planning. Length of Stay (Days): 6 GMLOS: 2.9 T [facility] 06-29-2024 Consult note Associated Order (s): IP CONSULT TO GENERAL SURGERY Images from the original note were not included. Attending Attestation [facility] - Surgery [facility] Phys[facility] Surgery Patient Name: Sophie Hicks Date: 06/29/24 Patient seen and examined. Underwent right total hip arthroplasty on 05/27/2024. Suffered a fall on 06/18/2024 with laceration to left oropeza. It was sutured in the emergency department with interrupted nylon sutures by the emergency clinicians. He presented on 06/23/2024 with concern for infection of the site and is subsequently been on antibiotics. The erythema and swelling of the area have significantly improved. He is now 10 days removed from injury and suture repair with recommendation to remove sutures. Exam: Abdomen: Soft, nontender, nondistended. Skin: Nylon sutures in place overlying the left oropeza with some superficial dehiscence of the lower aspect of the wound. Assessment and Plan: 58 y.o. male with traumatic injury to the left oropeza status post suture repair by the emergency department clinicians and subsequent infection with antibiotic treatment The wound has significantly improved. Pictures reviewed in the chart reveal significantly improved erythema and swelling. The wound is well-approximated aside from some superficial dehiscence in the inferior aspect. Sutures removed at bedside. Steri-Strips applied. Continue antibiotic care per infectious disease Continue medical care per primary Discussed with orthopedics General Surgery will sign off, please call with questions This case had moderate medical decision making and case complexity with 60 minute total care time including chart review, care coordination and face to face encounter. The patient was seen and examined independently and relevant data reviewed by myself. A full chart review was performed. I personally interviewed the patient and performed an individual physical examination. In addition, I discussed the patient's condition and treatment options with them. I have also reviewed and agree with the past medical, family and social history and care plan unless otherwise noted. All of the patient's questions were answered. Blu Coker MD General Surgery Pager #[phone] 3:05 PM 06/29/2024 Department of General Surgery Consult PATIENT NAME: Sophie Hicks DATE OF : 1965 ADMISSION DATE: 06/23/2024 9:57 AM TODAY'S DATE: 06/29/2024 Reason for Consult: Suture removal HISTORY OF PRESENT ILLNESS: The patient is a 58 y.o. male who presents with need for suture removal. Patient suffered mechanical fall and subsequent LLE laceration. He was seen in the ED on 06/18 and had the area sutured. He presented to [facility] with concern for infection to the area on 06/23 and is currently on antibiotic management. Patient notes that the area is sore but that the overall color and appearance of both the wound and his L foot are much improved. He is tolerating diet without fever/chills or nausea/vomiting. Patient is hopeful for suture removal, states that they were supposed to be removed a few days ago. PMH notable for Afib, HTN, CAD, CKD, COPD, HLD. PSH notable for bariatric surgery, panniculectomy, cardiac catheterization, EGD, colonoscopy, rotator cuff repair. WBC 5.5, Hgb 10.5. VSS. Thoroughly reviewed the patient's medical history, family history, social history and review of systems with the patient today in the office. Please see medical record for pertinent positives. 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 Back pain Benign essential HTN 01/29/2015 Blood circulation, collateral CAD (coronary artery disease) mild - dx on cath - neg stress Cerebral artery occlusion with cerebral infarction (HCC) patient states not ever confirmed as stoke Chronic kidney disease COPD (chronic obstructive pulmonary disease) (HCC) COVID-19 05/03 COVID-19 vaccine series completed 09/25/2020 Moderna COVID-19 vaccine series completed 12/04/2020 BOOSTER CS (cervical spondylosis) 12/25/2004 CERVICAL SPINE DJD Difficulty sleeping Dizziness GERD (gastroesophageal reflux disease) History of colonic polyps 06/21/2013 repeat 2019 Hyperlipidemia Hypothyroidism Insomnia 08/15/2014 Joint pain, hip Joint pain, knee Memory difficulties Motion sickness 05/24/2024 Muscle weakness Peripheral polyneuropathy 09/30/2020 Rheumatoid arthritis (HCC) Shortness of breath at rest Sleep apnea resolved with weight loss Snoring SOBOE (shortness of breath on exertion) Type 2 diabetes mellitus (HCC) 03/19/2021 resolved after weight loss Past Surgical History: Past Surgical History: Procedure Laterality Date APPENDECTOMY BARIATRIC SURGERY 12/03/2021 Dr. Trevino CARDIAC CATHETERIZATION 12/17/2013 NORMAL CORONARY ARTERIES AND LVEF. COLONOSCOPY COLONOSCOPY 2020 CYSTOSCOPY 10/26/2020 CYSTOSCOPY 11/19/2020 CYSTOSCOPY 09/16/2023 EGD (HISTORICAL) 03/02/2023 NECK SURGERY Posterior cervical fusion PANNICULECTOMY (HISTORICAL) 09/23/2023 ROTATOR CUFF REPAIR Bilateral 2023 both surgeries UPPER GASTROINTESTINAL ENDOSCOPY 01/24/2021 Dr. Cabello Current Medications: aspirin, 81 mg, Oral, Daily atorvastatin, 80 mg, Oral, Nightly buPROPion XL, 150 mg, Oral, Daily busPIRone, 10 mg, Oral, BID collagenase, , Topical, Daily DAPTOmycin (Cubicin) 750 mg in sodium chloride 0.9 % 50 mL IVPB, 750 mg, IntraVENous, q24h docusate sodium, 100 mg, Oral, BID enoxaparin, 40 mg, SubCUTAneous, Daily ertapenem, 1,000 mg, IntraVENous, q24h finasteride, 5 mg, Oral, Daily gabapentin, 600 mg, Oral, TID levothyroxine, 75 mcg, Oral, qAM AC Lidocaine, 1 patch, TransDERmal, Daily mometasone-formoterol, 2 puff, Inhalation, BID mupirocin, , Topical, BID pantoprazole, 40 mg, Oral, Daily tamsulosin, 0.4 mg, Oral, Daily PRN medications: acetaminophen OR acetaminophen, albuterol, ALPRAZolam, HYDROmorphone, lidocaine, naloxone, ondansetron ODT OR ondansetron, oxyCODONE, polyethylene glycol (PEG) 3350 Allergies: Iodinated contrast media and Nsaids Social History: Social History Socioeconomic History Marital status: Spouse name: Not on file Number of children: Not on file Years of education: Not on file Highest education level: Not on file Occupational History Not on file Tobacco Use Smoking status: Never Smokeless tobacco: Never Vaping Use Vaping status: Never Used Substance and Sexual Activity Alcohol use: Never Drug use: Never Sexual activity: Yes Partners: Female control/protection: Surgical, None Other Topics Concern Not on file Social History Narrative Not on file Social Drivers of Health Financial Resource Strain: Not on file Food Insecurity: No Food Insecurity (06/23/2024) Hunger Vital Sign Worried About Running Out of Food in the Last Year: Never true Ran Out of Food in the Last Year: Never true Transportation Needs: No Transportation Needs (06/23/2024) PRAPARE - Transportation Lack of Transportation (Medical): No Lack of Transportation (Non-Medical): No Physical Activity: Not on file Stress: Not on file Social Connections: Not on file Intimate Partner Violence: Not At Risk (06/23/2024) Humiliation, Afraid, Rape, and Kick questionnaire Fear of Current or Ex-Partner: No Emotionally Abused: No Physically Abused: No Sexually Abused: No Housing Stability: Low Risk (06/23/2024) Housing Stability Vital Sign Unable to Pay for Housing in the Last Year: No Number of Times Moved in the Last Year: 0 Homeless in the Last Year: No Family History: Family History Problem Relation Name Age of Onset Cancer Mother Kerri hicks Osteoarthritis Mother Kerri hicks Lung cancer Mother Kerri hicks smoker Coronary artery disease Other REVIEW OF SYSTEMS: CONSTITUTIONAL: Negative for fatigue, and unexpected weight change HENT: Negative for hearing loss, nosebleeds, sneezing, sore throat, trouble swallowing and voice change. RESPIRATORY: Negative for cough, SOB, and wheezing CARDIOVASCULAR: Negative for chest pains and palpatations GASTROINTESTINAL: Negative for abdominal pain, nausea/vomiting, fever/chills, hematochezia, melena, constipation, or diarrhea GENITOURINARY: negative for dysuria, urgency, frequency, and difficulty urinating. SKIN: Positive for LLE wound with sutures, negative for rash ALLERGIC/IMMUNOLOGIC: Negative for immunocompromised state HEMATOLOGIC/LYMPHATIC: Negative for adenopathy. Does not bruise/bleed easily. NEUROLOGICAL: Negative for seizures and syncope * All other ROS reviewed see HPI for pertinent positives and negatives. PHYSICAL EXAM: VITALS: BP 130/73 Pulse 72 Temp 36.1 C (97 F) (Temporal) Resp 16 Ht 6' 2 (1.88 m) Wt 280 lb 14.4 oz (127 kg) SpO2 95% BMI 36.07 kg/m 24HR INTAKE/OUTPUT: I/O last 3 completed shifts: In: - (0 mL/kg) Out: 900 (7.1 mL/kg) [Urine:900 (0.2 mL/kg/hr)] Weight: 127.4 kg No intake/output data recorded. CONSTITUTIONAL: Appears well nourished. No distress EYES: PERRL, conjunctiva normal ENT: Normocepalic,atraumatic, without obvious abnormality NECK: supple, symmetrical, trachea midline, no thyromegaly LUNGS: Resp effort easy and unlabored, breath sounds normal CARDIOVASCULAR: NO JVD, RRR, No murmur ABDOMEN: soft, nondistended, nontender, peritoneal signs absent, no masses palpated and hernia absent MUSCULOSKELETAL: Normal range of motion, no edema NEUROLOGIC: Mental Status Exam: Level of Alertness: alert Sensation globally intact PSYCHIATRIC: Oriented to person, place, and time. Speech is normal, mood appears normal SKIN: Warm, dry, and intact. LLE healing with minimal scabbing present and Nylon sutures intact. All sutures removed successfully and steri-strips applied. Kerlix dressing placed Titi Hicks is a 58 y.o. male with history of recent injury who presents for suture removal. The sutures were placed at [facility] ED 11 days ago. Patient reports mild pain at the site. - Location: [facility] - Wound appearance: no signs of infection, clean, and good wound healing - Treatment since repair: IV antibiotics - Patient denies the following symptoms: chills, erythema, edema, fever, and wound drainage All Nylon sutures were successfully removed with minimal tenderness. Steri-strips were placed at site and Kerlix dressing was placed. DATA: CBC: Recent Labs 06/27/24 0204 06/28/2421706/29/24 012 WBC 4.0 5.8 5.5 HGB 11.1* 11.3* 10.5* HCT 34.4* 35.4* 32.9* PLT 150 178 167 BMP: Recent Labs 06/27/24 0204 06/28/248 06/29/24 012 NA 142 140 141 K 3.9 4.0 3.9 CL 106 105 106 CO2 26 25 23 BUN 21 20 18 CREATININE 1.09 1.04 1.05 GLUCOSE 98 101* 113* Hepatic: Recent Labs 06/27/24203 AST 25 ALT 9 BILITOT 0.4 ALKPHOS 85 Mag: No results for input(s): MG in the last 72 hours. Phos: No results for input(s): PHOS in the last 72 hours. INR: No results for input(s): INR in the last 72 hours. IMPRESSION/RECOMMENDATIONS: Mr. Hicks is a 58 y.o. M who presented with LLE wound with sutures placed 06/18/2024 -WBC 5.5, Hgb 10.5 -Exam with well-healed wound and Nylon sutures intact -Sutures removed successfully and dressing placed -Diet as tolerated -No further surgical intervention planned -Medical mgmt per primary team Disposition: Sutures successfully removed with good wound healing. Continue local cleaning and dressing as needed. No further surgical intervention needed, will sign off. Please contact with further questions/concerns. Patient counseled on risks, benefits, and alternatives of treatment plan at length. Patient states an understanding and willingness to proceed with plan. Thank you for the opportunity to care for your patient, please don't hesitate to contact me for any questions or concerns you may have. [facility] Secure Chat during hours 7:30a-4:30p Thursday-Thursday After hours, please contact physician clinical transformation specialist. [employer] Phone: 06-29-2024 Consult note Associated Order (s): IP CONSULT TO GENERAL SURGERY Images from the original note were not included. Attending Attestation [facility] - Surgery [facility] Physicians Surgery Patient Name: Sophie Hicks Date: 06/29/24 Patient seen and examined. Underwent right total hip arthroplasty on 05/27/2024. Suffered a fall on 06/18/2024 with laceration to left oropeza. It was sutured in the emergency department with interrupted nylon sutures by the emergency clinicians. He presented on 06/23/2024 with concern for infection of the site and is subsequently been on antibiotics. The erythema and swelling of the area have significantly improved. He is now 10 days removed from injury and suture repair with recommendation to remove sutures. Exam: Abdomen: Soft, nontender, nondistended. Skin: Nylon sutures in place overlying the left oropeza with some superficial dehiscence of the lower aspect of the wound. Assessment and Plan: 58 y.o. male with traumatic injury to the left oropeza status post suture repair by the emergency department clinicians and subsequent infection with antibiotic treatment The wound has significantly improved. Pictures reviewed in the chart reveal significantly improved erythema and swelling. The wound is well-approximated aside from some superficial dehiscence in the inferior aspect. Sutures removed at bedside. Steri-Strips applied. Continue antibiotic care per infectious disease Continue medical care per primary Discussed with orthopedics General Surgery will sign off, please call with questions This case had moderate medical decision making and case complexity with 60 minute total care time including chart review, care coordination and face to face encounter. The patient was seen and examined independently and relevant data reviewed by myself. A full chart review was performed. I personally interviewed the patient and performed an individual physical examination. In addition, I discussed the patient's condition and treatment options with them. I have also reviewed and agree with the past medical, family and social history and care plan unless otherwise noted. All of the patient's questions were answered. Blu Coker MD General Surgery Pager #[phone] 3:05 PM 06/29/2024 Department of General Surgery Consult PATIENT NAME: Sophie Hicks DATE OF : 1965 ADMISSION DATE: 06/23/2024 9:57 AM TODAY'S DATE: 06/29/2024 Reason for Consult: Suture removal HISTORY OF PRESENT ILLNESS: The patient is a 58 y.o. male who presents with need for suture removal. Patient suffered mechanical fall and subsequent LLE laceration. He was seen in the ED on 06/18 and had the area sutured. He presented to [facility] with concern for infection to the area on 06/23 and is currently on antibiotic management. Patient notes that the area is sore but that the overall color and appearance of both the wound and his L foot are much improved. He is tolerating diet without fever/chills or nausea/vomiting. Patient is hopeful for suture removal, states that they were supposed to be removed a few days ago. PMH notable for Afib, HTN, CAD, CKD, COPD, HLD. PSH notable for bariatric surgery, panniculectomy, cardiac catheterization, EGD, colonoscopy, rotator cuff repair. WBC 5.5, Hgb 10.5. VSS. Thoroughly reviewed the patient's medical history, family history, social history and review of systems with the patient today in the office. Please see medical record for pertinent positives. 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 Back pain Benign essential HTN 01/29/2015 Blood circulation, collateral CAD (coronary artery disease) mild - dx on cath - neg stress Cerebral artery occlusion with cerebral infarction (HCC) patient states not ever confirmed as stoke Chronic kidney disease COPD (chronic obstructive pulmonary disease) (HCC) COVID-19 05/03 COVID-19 vaccine series completed 09/25/2020 Moderna COVID-19 vaccine series completed 12/04/2020 BOOSTER CS (cervical spondylosis) 12/25/2004 CERVICAL SPINE DJD Difficulty sleeping Dizziness GERD (gastroesophageal reflux disease) History of colonic polyps 06/21/2013 repeat 2019 Hyperlipidemia Hypothyroidism Insomnia 08/15/2014 Joint pain, hip Joint pain, knee Memory difficulties Motion sickness 05/24/2024 Muscle weakness Peripheral polyneuropathy 09/30/2020 Rheumatoid arthritis (HCC) Shortness of breath at rest Sleep apnea resolved with weight loss Snoring SOBOE (shortness of breath on exertion) Type 2 diabetes mellitus (HCC) 03/19/2021 resolved after weight loss Past Surgical History: Past Surgical History: Procedure Laterality Date APPENDECTOMY BARIATRIC SURGERY 12/03/2021 Dr. Trevino CARDIAC CATHETERIZATION 12/17/2013 NORMAL CORONARY ARTERIES AND LVEF. COLONOSCOPY COLONOSCOPY 2020 CYSTOSCOPY 10/26/2020 CYSTOSCOPY 11/19/2020 CYSTOSCOPY 09/16/2023 EGD (HISTORICAL) 03/02/2023 NECK SURGERY Posterior cervical fusion PANNICULECTOMY (HISTORICAL) 09/23/2023 ROTATOR CUFF REPAIR Bilateral 2023 both surgeries UPPER GASTROINTESTINAL ENDOSCOPY 01/24/2021 Dr. Cabello Current Medications: aspirin, 81 mg, Oral, Daily atorvastatin, 80 mg, Oral, Nightly buPROPion XL, 150 mg, Oral, Daily busPIRone, 10 mg, Oral, BID collagenase, , Topical, Daily DAPTOmycin (Cubicin) 750 mg in sodium chloride 0.9 % 50 mL IVPB, 750 mg, IntraVENous, q24h docusate sodium, 100 mg, Oral, BID enoxaparin, 40 mg, SubCUTAneous, Daily ertapenem, 1,000 mg, IntraVENous, q24h finasteride, 5 mg, Oral, Daily gabapentin, 600 mg, Oral, TID levothyroxine, 75 mcg, Oral, qAM AC Lidocaine, 1 patch, TransDERmal, Daily mometasone-formoterol, 2 puff, Inhalation, BID mupirocin, , Topical, BID pantoprazole, 40 mg, Oral, Daily tamsulosin, 0.4 mg, Oral, Daily PRN medications: acetaminophen OR acetaminophen, albuterol, ALPRAZolam, HYDROmorphone, lidocaine, naloxone, ondansetron ODT OR ondansetron, oxyCODONE, polyethylene glycol (PEG) 3350 Allergies: Iodinated contrast media and Nsaids Social History: Social History Socioeconomic History Marital status: Spouse name: Not on file Number of children: Not on file Years of education: Not on file Highest education level: Not on file Occupational History Not on file Tobacco Use Smoking status: Never Smokeless tobacco: Never Vaping Use Vaping status: Never Used Substance and Sexual Activity Alcohol use: Never Drug use: Never Sexual activity: Yes Partners: Female control/protection: Surgical, None Other Topics Concern Not on file Social History Narrative Not on file Social Drivers of Health Financial Resource Strain: Not on file Food Insecurity: No Food Insecurity (06/23/2024) Hunger Vital Sign Worried About Running Out of Food in the Last Year: Never true Ran Out of Food in the Last Year: Never true Transportation Needs: No Transportation Needs (06/23/2024) PRAPARE - Transportation Lack of Transportation (Medical): No Lack of Transportation (Non-Medical): No Physical Activity: Not on file Stress: Not on file Social Connections: Not on file Intimate Partner Violence: Not At Risk (06/23/2024) Humiliation, Afraid, Rape, and Kick questionnaire Fear of Current or Ex-Partner: No Emotionally Abused: No Physically Abused: No Sexually Abused: No Housing Stability: Low Risk (06/23/2024) Housing Stability Vital Sign Unable to Pay for Housing in the Last Year: No Number of Times Moved in the Last Year: 0 Homeless in the Last Year: No Family History: Family History Problem Relation Name Age of Onset Cancer Mother Kerri hicks Osteoarthritis Mother Kerri hicks Lung cancer Mother Kerri hicks smoker Coronary artery disease Other REVIEW OF SYSTEMS: CONSTITUTIONAL: Negative for fatigue, and unexpected weight change HENT: Negative for hearing loss, nosebleeds, sneezing, sore throat, trouble swallowing and voice change. RESPIRATORY: Negative for cough, SOB, and wheezing CARDIOVASCULAR: Negative for chest pains and palpatations GASTROINTESTINAL: Negative for abdominal pain, nausea/vomiting, fever/chills, hematochezia, melena, constipation, or diarrhea GENITOURINARY: negative for dysuria, urgency, frequency, and difficulty urinating. SKIN: Positive for LLE wound with sutures, negative for rash ALLERGIC/IMMUNOLOGIC: Negative for immunocompromised state HEMATOLOGIC/LYMPHATIC: Negative for adenopathy. Does not bruise/bleed easily. NEUROLOGICAL: Negative for seizures and syncope * All other ROS reviewed see HPI for pertinent positives and negatives. PHYSICAL EXAM: VITALS: BP 130/73 Pulse 72 Temp 36.1 C (97 F) (Temporal) Resp 16 Ht 6' 2 (1.88 m) Wt 280 lb 14.4 oz (127 kg) SpO2 95% BMI 36.07 kg/m 24HR INTAKE/OUTPUT: I/O last 3 completed shifts: In: - (0 mL/kg) Out: 900 (7.1 mL/kg) [Urine:900 (0.2 mL/kg/hr)] Weight: 127.4 kg No intake/output data recorded. CONSTITUTIONAL: Appears well nourished. No distress EYES: PERRL, conjunctiva normal ENT: Normocepalic,atraumatic, without obvious abnormality NECK: supple, symmetrical, trachea midline, no thyromegaly LUNGS: Resp effort easy and unlabored, breath sounds normal CARDIOVASCULAR: NO JVD, RRR, No murmur ABDOMEN: soft, nondistended, nontender, peritoneal signs absent, no masses palpated and hernia absent MUSCULOSKELETAL: Normal range of motion, no edema NEUROLOGIC: Mental Status Exam: Level of Alertness: alert Sensation globally intact PSYCHIATRIC: Oriented to person, place, and time. Speech is normal, mood appears normal SKIN: Warm, dry, and intact. LLE healing with minimal scabbing present and Nylon sutures intact. All sutures removed successfully and steri-strips applied. Kerlix dressing placed Titi Jordyn Hicks is a 58 y.o. male with history of recent injury who presents for suture removal. The sutures were placed at [facility] ED 11 days ago. Patient reports mild pain at the site. - Location: [facility] - Wound appearance: no signs of infection, clean, and good wound healing - Treatment since repair: IV antibiotics - Patient denies the following symptoms: chills, erythema, edema, fever, and wound drainage All Nylon sutures were successfully removed with minimal tenderness. Steri-strips were placed at site and Kerlix dressing was placed. DATA: CBC: Recent Labs 06/27/24 0204 06/28/24 0218 06/29/24 0127 WBC 4.0 5.8 5.5 HGB 11.1* 11.3* 10.5* HCT 34.4* 35.4* 32.9* PLT 150 178 167 BMP: Recent Labs 06/27/24 0204 06/28/24 0218 06/29/24 0127 NA 142 140 141 K 3.9 4.0 3.9 CL 106 105 106 CO2 26 25 23 BUN 21 20 18 CREATININE 1.09 1.04 1.05 GLUCOSE 98 101* 113* Hepatic: Recent Labs 06/27/24 020 AST 25 ALT 9 BILITOT 0.4 ALKPHOS 85 Mag: No results for input(s): MG in the last 72 hours. Phos: No results for input(s): PHOS in the last 72 hours. INR: No results for input(s): INR in the last 72 hours. IMPRESSION/RECOMMENDATIONS: Mr. Hicks is a 58 y.o. M who presented with LLE wound with sutures placed 06/18/2024 -WBC 5.5, Hgb 10.5 -Exam with well-healed wound and Nylon sutures intact -Sutures removed successfully and dressing placed -Diet as tolerated -No further surgical intervention planned -Medical mgmt per primary team Disposition: Sutures successfully removed with good wound healing. Continue local cleaning and dressing as needed. No further surgical intervention needed, will sign off. Please contact with further questions/concerns. Patient counseled on risks, benefits, and alternatives of treatment plan at length. Patient states an understanding and willingness to proceed with plan. Thank you for the opportunity to care for your patient, please don't hesitate to contact me for any questions or concerns you may have. [facility] Secure Chat during hours 7:30a-4:30p Thursday-Thursday After hours, please contact physician clinical transformation specialist. Associated Order(s): PHARMACY TO DOSE VANCO Vancomycin therapy has been discontinued by Dr. Salomon on 06-24-24. Thank you for the consult. Pharmacy signing off for vancomycin dosing. Lisa Chávez RP, Date: 06/24/24 Time: 9:00 AM Associated Order(s): IP CONSULT TO INFECTIOUS DISEASES Images from the original note were not included. 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 See skin exam. Now with severe burning pain at site of infection. No other unusual complaints. Has lost 200 pounds after weight loss surgery 3 years ago ([facility]). 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 Back pain Benign essential HTN 01/29/2015 Blood circulation, collateral CAD (coronary artery disease) mild - dx on cath - neg stress Cerebral artery occlusion with cerebral infarction (HCC) patient states not ever confirmed as stoke Chronic kidney disease COPD (chronic obstructive pulmonary disease) (HCC) COVID-19 05/03 COVID-19 vaccine series completed 09/25/2020 Moderna COVID-19 vaccine series completed 12/04/2020 BOOSTER CS (cervical spondylosis) 12/25/2004 CERVICAL SPINE DJD Difficulty sleeping Dizziness GERD (gastroesophageal reflux disease) History of colonic polyps 06/21/2013 repeat 2019 Hyperlipidemia Hypothyroidism Insomnia 08/15/2014 Joint pain, hip Joint pain, knee Memory difficulties Motion sickness 05/24/2024 Muscle weakness Peripheral polyneuropathy 09/30/2020 Rheumatoid arthritis (HCC) Shortness of breath at rest Sleep apnea resolved with weight loss Snoring SOBOE (shortness of breath on exertion) Type 2 diabetes mellitus (HCC) 03/19/2021 resolved after weight loss Past Surgical History: Past Surgical History: Procedure Laterality Date APPENDECTOMY BARIATRIC SURGERY 12/03/2021 Dr. Trevino CARDIAC CATHETERIZATION 12/17/2013 NORMAL CORONARY ARTERIES AND LVEF. COLONOSCOPY COLONOSCOPY 2020 CYSTOSCOPY 10/26/2020 CYSTOSCOPY 11/19/2020 CYSTOSCOPY 09/16/2023 EGD (HISTORICAL) 03/02/2023 NECK SURGERY Posterior cervical fusion PANNICULECTOMY (HISTORICAL) 09/23/2023 ROTATOR CUFF REPAIR Bilateral 2023 both surgeries UPPER GASTROINTESTINAL ENDOSCOPY 01/24/2021 Dr. Cabello Current Medications: Current Facility-Administered Medications Medication Dose Route Frequency Provider Last Rate Last Admin acetaminophen (Tylenol) tablet 650 mg 650 mg Oral q6h PRN Yadiel Boss MD 650 mg at 06/23/242012 Or acetaminophen (Tylenol) suppository 650 mg 650 mg Rectal q6h PRN Yadiel Boss MD albuterol 108 (90 Base) MCG/ACT inhaler 2 puff 2 puff Inhalation q6h PRN Yadiel Boss MD ALPRAZolam (Xanax) tablet 1 mg 1 mg Oral Nightly PRN Marisel Deleon MD 1 mg at 06/23/246 aspirin EC tablet 81 mg 81 mg Oral Daily Yadiel Boss MD atorvastatin (Lipitor) tablet 80 mg 80 mg Oral Nightly Yadiel Boss MD 80 mg at 06/23/242012 buPROPion XL (Wellbutrin XL) 24 hr tablet 150 mg 150 mg Oral Daily Yadiel Boss MD busPIRone (Buspar) tablet 10 mg 10 mg Oral BID Yadiel Boss MD 10 mg at 06/23/242012 docusate sodium (Colace) capsule 100 mg 100 mg Oral BID Yadiel Boss MD 100 mg at 06/23/242012 [Held by provider] enoxaparin (Lovenox) syringe 40 mg 40 mg SubCUTAneous Daily Yadiel Boss MD 40 mg at 06/23/242012 finasteride (Proscar) tablet 5 mg 5 mg Oral Daily Yadiel Boss MD gabapentin (Neurontin) capsule 600 mg 600 mg Oral TID Yadiel Boss MD 600 mg at 06/23/242012 HYDROmorphone (Dilaudid) injection 1 mg 1 mg IntraVENous q4h PRN Yadiel Boss MD 1 mg at 06/24/24 0537 levothyroxine (Synthroid, Levoxyl) tablet 75 mcg 75 mcg Oral qAM AC Yadiel Boss MD 75 mcg at 06/24/24 0537 lidocaine (LMX) 4 % cream Topical TID PRN Yadiel Boss MD Given at 06/24/24 0537 mometasone-formoterol (Dulera 200) 200-5 MCG/ACT inhaler 2 puff 2 puff Inhalation BID Yadiel Boss MD 2 puff at 06/23/24 2118 naloxone (Narcan) injection 0.4 mg 0.4 mg IntraVENous q5 min PRN Yadiel Boss MD ondansetron ODT (Zofran-ODT) disintegrating tablet 4 mg 4 mg Oral q8h PRN Yadiel Boss MD 4 mg at 06/23/24 2321 Or ondansetron (Zofran) injection 4 mg 4 mg IntraVENous q6h PRN Yadiel Boss MD pantoprazole (ProtoNix) EC tablet 40 mg 40 mg Oral Daily Yadiel Boss MD piperacillin-tazobactam (Zosyn) 4,500 mg in sodium chloride 0.9 % 100 mL IVPB Mini-Bag Plus 4,500 mg IntraVENous q6h Yadiel Boss MD Stopped at 06/24/24 0704 polyethylene glycol (PEG) 3350 (Miralax) packet 17 g 17 g Oral Daily PRN Yadiel Boss MD tamsulosin (Flomax) 24 hr capsule 0.4 mg 0.4 mg Oral Daily Yadiel Boss MD vancomycin in NS (Vancocin) IVPB 2,000 mg 2,000 mg IntraVENous q18h Yadiel Boss MD Allergies: Allergies Allergen Reactions Iodinated Contrast Media Other reaction(s): Kidney disease Nsaids Other reaction(s): Kidney disease Due to Kidney Disease Social History: Social History Socioeconomic History Marital status: Spouse name: Not on file Number of children: Not on file Years of education: Not on file Highest education level: Not on file Occupational History Not on file Tobacco Use Smoking status: Never Smokeless tobacco: Never Vaping Use Vaping status: Never Used Substance and Sexual Activity Alcohol use: Never Drug use: Never Sexual activity: Yes Partners: Female control/protection: Surgical, None Other Topics Concern Not on file Social History Narrative Not on file Social Drivers of Health Financial Resource Strain: Not on file Food Insecurity: No Food Insecurity (06/23/2024) Hunger Vital Sign Worried About Running Out of Food in the Last Year: Never true Ran Out of Food in the Last Year: Never true Transportation Needs: No Transportation Needs (06/23/2024) PRAPARE - Transportation Lack of Transportation (Medical): No Lack of Transportation (Non-Medical): No Physical Activity: Not on file Stress: Not on file Social Connections: Not on file Intimate Partner Violence: Not At Risk (06/23/2024) Humiliation, Afraid, Rape, and Kick questionnaire Fear of Current or Ex-Partner: No Emotionally Abused: No Physically Abused: No Sexually Abused: No Housing Stability: Low Risk (06/23/2024) Housing Stability Vital Sign Unable to Pay for Housing in the Last Year: No Number of Times Moved in the Last Year: 0 Homeless in the Last Year: No Family History: Family History Problem Relation Name Age of Onset Cancer Mother Kerri hicks Osteoarthritis Mother Kerri hicks Lung cancer Mother Kerri hicks smoker Coronary artery disease Other Review of Systems: Only current complaint is severe burning pain at site of wound infection. Vitals: Patient Vitals for the past 24 hrs: BP Temp Temp src Pulse Resp SpO2 Height Weight 06/24/24 0500 -- -- -- -- -- -- -- 287 lb 9.6 oz (130 kg) 06/23/242003 128/73 37.1 C (98.8 F) Temporal 96 18 97 % -- -- 06/23/24 1700 118/75 -- -- 100 16 100 % -- -- 06/23/24 1500 (!) 106/92 -- -- 97 17 97 % -- -- 06/23/24 1230 128/66 -- -- (!) 114 25 97 % -- -- 06/23/24 1221 (!) 143/64 -- -- 98 18 99 % -- -- 06/23/24 1130 136/83 -- -- 98 13 94 % -- -- 06/23/24 1015 110/65 36.8 C (98.3 F) Oral 98 17 98 % 6' 2 (1.88 m) 265 lb (120 kg) Physical Exam: Physical Examination. General - Looks normal; not chronically ill-appearing or cachectic VS - Afebrile and hemodynamically stable. Skin - Left Lower leg: Right hip wound looks good: Nodes - None palpable in neck, supraclavicular, axillary, femoral areas. Head - Normocephalic without evidence of trauma or congenital abnormalities. Eyes - Pupils normal. No subconjunctival petechiae. Ears - Normal external ear; no canal drainage; no tenderness of pinnae. Nose - Normal without discharge Sinuses/Mastoids - Non-tender to palpation and percussion Mouth - Dentures that don't fit well (weight loss) Neck - No lymphadenopathy or submental masses; supple Chest - Clear to auscultation bilaterally. Heart - Normal S1 and S2; no murmur, gallop or rub audible on auscultation. Abdomen - Abdomen with long scar across bottom Back - Prior cervical spine surgical scar Neurologic - No focal deficits of cranial nerves Extremities = exam as above under skin exam Genitourinary - External organs normal; no CVA tenderness. IV Lines - PIV Other Tubes/Devices - None Labs: Lab Results Component Value Date/Time NA 138 06/24/2024 0404 K 4.1 06/24/2024 0404 CL 105 06/24/2024 0404 BUN 15 06/24/2024 0404 BUN 13 05/17/2024 1027 CREATININE 1.17 06/24/2024 0404 CREATININE 1.17 05/17/2024 1027 GLUCOSE 111 (H) 06/24/2024 0404 GLUCOSE 88 05/17/2024 1027 CALCIUM 8.2 (L) 06/24/2024 0404 CALCIUM 8.4 (L) 05/17/2024 1027 PROT 6.3 (L) 06/24/2024 0404 PROT 6.2 05/17/2024 1027 BILITOT 1.1 06/24/2024 0404 BILITOT 0.6 05/17/2024 1027 ALKPHOS 66 06/24/2024 0404 ALKPHOS 56 05/17/2024 1027 AST 33 06/24/2024 0404 AST 20 05/17/2024 1027 ALT <6 06/24/2024 0404 ALT 13 05/17/2024 1027 PROCAL 0.66 (H) 06/24/2024 0404 PROCAL 0.10 (A) 04/29/2020 1538 Lab Results Component Value Date/Time WBC 8.1 06/24/2024 0404 WBC 3.9 05/17/2024 1027 HGB 9.7 (L) 06/24/2024 0404 HGB 11.7 (L) 05/17/2024 1027 HCT 30.5 (L) 06/24/2024 0404 HCT 35.9 (L) 05/17/2024 1027 PLT 87 (L) 06/24/2024 0404 GRANULOCYTES 64.2 12/19/2021 0038 LYMPHOPCT 8 (L) 06/24/2024 0404 MONOPCT 6 06/24/2024 0404 LABEOS 3.1 12/19/2021 0038 BASOPCT 1 06/24/2024 0404 NEUTROABS 2.7 10/02/2023 0347 Microbiology Data: None Lines: PIV Radiography/Echo/Other: No fracture Antimicrobial Therapy: Zosyn + Vancomycin --> Vancomycin Impression: Acute cellulitis of left lower leg s/p fall on step with plastic edge No evidence of right GEOREG infection (12 days ago replaced) 3. Pain due to 1, severe now and losing benefit of pain medication after 3 hours. Plan: Discontinue vancomycin so we don't have any issues with kidneys/hearing Start Daptomycin Get culture of wound Topical therapy to wound Increase frequency of pain medication for next 48 hours > 50 minutes spent on consult Wiliam Salomon M.D. [facility], Infectious Diseases (1) Cell (Call or Text) (2) Epic Chat: Available (3) ID Answering Service: Electronicallysigned by Wiliam Salomon MD on 06/24/2024 at 8:36 AM documented in this encounter [facility] 06-29-2024 Note Formatting of this n ote might be different from the original. Waiting for ID plan for home antibiotics. Dr Veronica notified pt will be self pay for IV supplies and IV drug(s) if pt needs to go home on home IV antibiotic infusion when discharged. T [facility] 06-29-2024 Note Formatting of this n ote might be different from the original. Waiting for ID plan for home antibiotics. Dr Veronica notified pt will be self pay for IV supplies and IV drug(s) if pt needs to go home on home IV antibiotic infusion when discharged. [facility] 06-29-2024 Plan of care note Problem: Knowledge Deficit Goal: Patient/family/caregiver demonstrates understanding of disease process, treatment plan, medications, and discharge instructions Outcome: Progressing Problem: Potential for Compromised Skin Integrity Goal: Skin Integrity is Maintained or Improved Outcome: Progressing [facility] 06-27-2024 Note Formatting of this n ote might be different from the original. S/W, SDOH SDOH positive for Advance Directives. I did visit patient in room. I did provide patient with HCPOA paperwork. Patient appreciative of visit and noted he will take paperwork home with him to review. [facility] 06-27-2024 Note Formatting of this n ote might be different from the original. S/W, SDOH SDOH positive for Advance Directives. I did visit patient in room. I did provide patient with HCPOA paperwork. Patient appreciative of visit and noted he will take paperwork home with him to review. [facility] 06-27-2024 Note Formatting of this n ote might be different from the original. Care Management Progress Note Patient remains on 4S today LLE pain/swelling, with ID following. Continued IV ATBX Dapto. Following cxs. Sutures intact. Pain control. Tolerating diet. Waiting on final ID recs. Declined SNF. Active with [facility]. CM will continue to follow for discharge planning. Length of Stay (Days): 4 GMLOS: 3.1 T [facility] 06-27-2024 Note Formatting of this n ote might be different from the original. Care Management Progress Note Patient remains on 4S today LLE pain/swelling, with ID following. Continued IV ATBX Dapto. Following cxs. Sutures intact. Pain control. Tolerating diet. Waiting on final ID recs. Declined SNF. Active with [facility]. CM will continue to follow for discharge planning. Length of Stay (Days): 4 GMLOS: 3.1 [facility] 06-26-2024 Nurse Note Lab called, specimen from left leg culture is missing. soil field technician states will keep looking for it, but was told to re-recollect. Dr. Salomon and Dr. Boss aware. [facility] 06-24-2024 Note Formatting of this n ote might be different from the original. Spoke to patient today regarding discharge planning. We went over PT recommendations. Patient declined SNF LOC. He is agreeable to resume HHC once he gets home and then will follow up with OP therapy in [place]. I called and LM on confidential line for spouse Ellie. CM will continue to follow for discharge planning. [facility] 06-24-2024 Note Formatting of this n ote might be different from the original. Spoke to patient today regarding discharge planning. We went over PT recommendations. Patient declined SNF LOC. He is agreeable to resume HHC once he gets home and then will follow up with OP therapy in [place]. I called and LM on confidential line for spouse Ellie. CM will continue to follow for discharge planning. [facility] 06-24-2024 Note Formatting of this n ote might be different from the original. Patient is currently active with [facility]. The patients current certification period will on 07/27/2024. The patient is currently receiving SN, PT services through the agency. Video Rental Clerk to continue to follow. [facility] 06-24-2024 Note Formatting of this n ote might be different from the original. Patient is currently active with [facility]. The patients current certification period will on 07/27/2024. The patient is currently receiving SN, PT services through the agency. Video Rental Clerk to continue to follow. [facility] 06-24-2024 Consult note Associated Order (s): PHARMACY TO DOSE VANCO Vancomycin therapy has been discontinued by Dr. Salomon on 06-24-24. Thank you for the consult. Pharmacy signing off for vancomycin dosing. Lisa Chávez RP, Date: 06/24/24 Time: 9:00 AM [facility] 06-24-2024 Nurse Note Wound Care consulted for Pressure Injury Prevention. Pt's Pb score= 17 on 06/23 Pt's pressure points assessed. Pt's Heels, Buttocks/coccyx, Back, Elbows, Occiput and ears all intact. Pt turned independently for posterior assessment. Pt able to move lower extremities well despite pain in left leg. Pt with noted sutures to left oropeza, see media tab for photos. Pt requested sacral foam not be applied at this time d/t wanting to get a bath later this morning. Prevention Measures in place, including: Pillows/wedges, Heels elevated off bed on pillows, Sacral foam (obtained, at bedside), Zinc/Moisture Barrier ointment (obtained), Waffle chair cushion (obtained for pt). Skin Care precaution order set in place. Dietitian consult order placed d/t wound (left leg). PT/OT consult in place. Will continue to follow pt. Please secure chat for any questions or concerns. Michelle Valero RN [facility] 06-24-2024 Consult note Associated Order (s): IP CONSULT TO INFECTIOUS DISEASES Images from the original note were not included. 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 See skin exam. Now with severe burning pain at site of infection. No other unusual complaints. Has lost 200 pounds after weight loss surgery 3 years ago ([facility]). 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 Back pain Benign essential HTN 01/29/2015 Blood circulation, collateral CAD (coronary artery disease) mild - dx on cath - neg stress Cerebral artery occlusion with cerebral infarction (HCC) patient states not ever confirmed as stoke Chronic kidney disease COPD (chronic obstructive pulmonary disease) (HCC) COVID-19 05/03 COVID-19 vaccine series completed 09/25/2020 Moderna COVID-19 vaccine series completed 12/04/2020 BOOSTER CS (cervical spondylosis) 12/25/2004 CERVICAL SPINE DJD Difficulty sleeping Dizziness GERD (gastroesophageal reflux disease) History of colonic polyps 06/21/2013 repeat 2019 Hyperlipidemia Hypothyroidism Insomnia 08/15/2014 Joint pain, hip Joint pain, knee Memory difficulties Motion sickness 05/24/2024 Muscle weakness Peripheral polyneuropathy 09/30/2020 Rheumatoid arthritis (HCC) Shortness of breath at rest Sleep apnea resolved with weight loss Snoring SOBOE (shortness of breath on exertion) Type 2 diabetes mellitus (HCC) 03/19/2021 resolved after weight loss Past Surgical History: Past Surgical History: Procedure Laterality Date APPENDECTOMY BARIATRIC SURGERY 12/03/2021 Dr. Trevino CARDIAC CATHETERIZATION 12/17/2013 NORMAL CORONARY ARTERIES AND LVEF. COLONOSCOPY COLONOSCOPY 2020 CYSTOSCOPY 10/26/2020 CYSTOSCOPY 11/19/2020 CYSTOSCOPY 09/16/2023 EGD (HISTORICAL) 03/02/2023 NECK SURGERY Posterior cervical fusion PANNICULECTOMY (HISTORICAL) 09/23/2023 ROTATOR CUFF REPAIR Bilateral 2023 both surgeries UPPER GASTROINTESTINAL ENDOSCOPY 01/24/2021 Dr. Cabello Current Medications: Current Facility-Administered Medications Medication Dose Route Frequency Provider Last Rate Last Admin acetaminophen (Tylenol) tablet 650 mg 650 mg Oral q6h PRN Yadiel Boss MD 650 mg at 06/23/242012 Or acetaminophen (Tylenol) suppository 650 mg 650 mg Rectal q6h PRN Yadiel Boss MD albuterol 108 (90 Base) MCG/ACT inhaler 2 puff 2 puff Inhalation q6h PRN Yadiel Boss MD ALPRAZolam (Xanax) tablet 1 mg 1 mg Oral Nightly PRN Marisel Deleon MD 1 mg at 06/23/242315 aspirin EC tablet 81 mg 81 mg Oral Daily Yadiel Boss MD atorvastatin (Lipitor) tablet 80 mg 80 mg Oral Nightly Yadiel Boss MD 80 mg at 06/23/242012 buPROPion XL (Wellbutrin XL) 24 hr tablet 150 mg 150 mg Oral Daily Yadiel Boss MD busPIRone (Buspar) tablet 10 mg 10 mg Oral BID Yadiel Boss MD 10 mg at 06/23/242012 docusate sodium (Colace) capsule 100 mg 100 mg Oral BID Yadiel Boss MD 100 mg at 06/23/242012 [Held by provider] enoxaparin (Lovenox) syringe 40 mg 40 mg SubCUTAneous Daily Yadiel Boss MD 40 mg at 06/23/242012 finasteride (Proscar) tablet 5 mg 5 mg Oral Daily Yadiel Boss MD gabapentin (Neurontin) capsule 600 mg 600 mg Oral TID Yadiel Boss MD 600 mg at 06/23/242012 HYDROmorphone (Dilaudid) injection 1 mg 1 mg IntraVENous q4h PRN Yadiel Boss MD 1 mg at 06/24/24 0537 levothyroxine (Synthroid, Levoxyl) tablet 75 mcg 75 mcg Oral qAM AC Yadiel Boss MD 75 mcg at 06/24/24 0537 lidocaine (LMX) 4 % cream Topical TID PRN Yadiel Boss MD Given at 06/24/24 0537 mometasone-formoterol (Dulera 200) 200-5 MCG/ACT inhaler 2 puff 2 puff Inhalation BID Yadiel Boss MD 2 puff at 06/23/24 2118 naloxone (Narcan) injection 0.4 mg 0.4 mg IntraVENous q5 min PRN Yadiel Boss MD ondansetron ODT (Zofran-ODT) disintegrating tablet 4 mg 4 mg Oral q8h PRN Yadiel Boss MD 4 mg at 06/23/24 2321 Or ondansetron (Zofran) injection 4 mg 4 mg IntraVENous q6h PRN Yadiel Boss MD pantoprazole (ProtoNix) EC tablet 40 mg 40 mg Oral Daily Yadiel Boss MD piperacillin-tazobactam (Zosyn) 4,500 mg in sodium chloride 0.9 % 100 mL IVPB Mini-Bag Plus 4,500 mg IntraVENous q6h Yadiel Boss MD Stopped at 06/24/24 0704 polyethylene glycol (PEG) 3350 (Miralax) packet 17 g 17 g Oral Daily PRN Yadiel Boss MD tamsulosin (Flomax) 24 hr capsule 0.4 mg 0.4 mg Oral Daily Yadiel Boss MD vancomycin in NS (Vancocin) IVPB 2,000 mg 2,000 mg IntraVENous q18h Yadiel Boss MD Allergies: Allergies Allergen Reactions Iodinated Contrast Media Other reaction(s): Kidney disease Nsaids Other reaction(s): Kidney disease Due to Kidney Disease Social History: Social History Socioeconomic History Marital status: Spouse name: Not on file Number of children: Not on file Years of education: Not on file Highest education level: Not on file Occupational History Not on file Tobacco Use Smoking status: Never Smokeless tobacco: Never Vaping Use Vaping status: Never Used Substance and Sexual Activity Alcohol use: Never Drug use: Never Sexual activity: Yes Partners: Female control/protection: Surgical, None Other Topics Concern Not on file Social History Narrative Not on file Social Drivers of Health Financial Resource Strain: Not on file Food Insecurity: No Food Insecurity (06/23/2024) Hunger Vital Sign Worried About Running Out of Food in the Last Year: Never true Ran Out of Food in the Last Year: Never true Transportation Needs: No Transportation Needs (06/23/2024) PRAPARE - Transportation Lack of Transportation (Medical): No Lack of Transportation (Non-Medical): No Physical Activity: Not on file Stress: Not on file Social Connections: Not on file Intimate Partner Violence: Not At Risk (06/23/2024) Humiliation, Afraid, Rape, and Kick questionnaire Fear of Current or Ex-Partner: No Emotionally Abused: No Physically Abused: No Sexually Abused: No Housing Stability: Low Risk (06/23/2024) Housing Stability Vital Sign Unable to Pay for Housing in the Last Year: No Number of Times Moved in the Last Year: 0 Homeless in the Last Year: No Family History: Family History Problem Relation Name Age of Onset Cancer Mother Kerri hicks Osteoarthritis Mother Kerri hicks Lung cancer Mother Kerri hicks smoker Coronary artery disease Other Review of Systems: Only current complaint is severe burning pain at site of wound infection. Vitals: Patient Vitals for the past 24 hrs: BP Temp Temp src Pulse Resp SpO2 Height Weight 06/24/24 0500 -- -- -- -- -- -- -- 287 lb 9.6 oz (130 kg) 06/23/242003 128/73 37.1 C (98.8 F) Temporal 96 18 97 % -- -- 06/23/24 1700 118/75 -- -- 100 16 100 % -- -- 06/23/24 1500 (!) 106/92 -- -- 97 17 97 % -- -- 06/23/24 1230 128/66 -- -- (!) 114 25 97 % -- -- 06/23/24 1221 (!) 143/64 -- -- 98 18 99 % -- -- 06/23/24 1130 136/83 -- -- 98 13 94 % -- -- 06/23/24 1015 110/65 36.8 C (98.3 F) Oral 98 17 98 % 6' 2 (1.88 m) 265 lb (120 kg) Physical Exam: Physical Examination. General - Looks normal; not chronically ill-appearing or cachectic VS - Afebrile and hemodynamically stable. Skin - Left Lower leg: Right hip wound looks good: Nodes - None palpable in neck, supraclavicular, axillary, femoral areas. Head - Normocephalic without evidence of trauma or congenital abnormalities. Eyes - Pupils normal. No subconjunctival petechiae. Ears - Normal external ear; no canal drainage; no tenderness of pinnae. Nose - Normal without discharge Sinuses/Mastoids - Non-tender to palpation and percussion Mouth - Dentures that don't fit well (weight loss) Neck - No lymphadenopathy or submental masses; supple Chest - Clear to auscultation bilaterally. Heart - Normal S1 and S2; no murmur, gallop or rub audible on auscultation. Abdomen - Abdomen with long scar across bottom Back - Prior cervical spine surgical scar Neurologic - No focal deficits of cranial nerves Extremities = exam as above under skin exam Genitourinary - External organs normal; no CVA tenderness. IV Lines - PIV Other Tubes/Devices - None Labs: Lab Results Component Value Date/Time NA 138 06/24/2024 0404 K 4.1 06/24/2024 0404 CL 105 06/24/2024 0404 BUN 15 06/24/2024 0404 BUN 13 05/17/2024 1027 CREATININE 1.17 06/24/2024 0404 CREATININE 1.17 05/17/2024 1027 GLUCOSE 111 (H) 06/24/2024 0404 GLUCOSE 88 05/17/2024 1027 CALCIUM 8.2 (L) 06/24/2024 0404 CALCIUM 8.4 (L) 05/17/2024 1027 PROT 6.3 (L) 06/24/2024 0404 PROT 6.2 05/17/2024 1027 BILITOT 1.1 06/24/2024 0404 BILITOT 0.6 05/17/2024 1027 ALKPHOS 66 06/24/2024 0404 ALKPHOS 56 05/17/2024 1027 AST 33 06/24/2024 0404 AST 20 05/17/2024 1027 ALT <6 06/24/2024 0404 ALT 13 05/17/2024 1027 PROCAL 0.66 (H) 06/24/2024 0404 PROCAL 0.10 (A) 04/29/2020 1538 Lab Results Component Value Date/Time WBC 8.1 06/24/2024 0404 WBC 3.9 05/17/2024 1027 HGB 9.7 (L) 06/24/2024 0404 HGB 11.7 (L) 05/17/2024 1027 HCT 30.5 (L) 06/24/2024 0404 HCT 35.9 (L) 05/17/2024 1027 PLT 87 (L) 06/24/2024 0404 GRANULOCYTES 64.2 12/19/2021 0038 LYMPHOPCT 8 (L) 06/24/2024 0404 MONOPCT 6 06/24/2024 0404 LABEOS 3.1 12/19/2021 0038 BASOPCT 1 06/24/2024 0404 NEUTROABS 2.7 10/02/2023 0347 Microbiology Data: None Lines: PIV Radiography/Echo/Other: No fracture Antimicrobial Therapy: Zosyn + Vancomycin --> Vancomycin Impression: Acute cellulitis of left lower leg s/p fall on step with plastic edge No evidence of right GEORGE infection (12 days ago replaced) 3. Pain due to 1, severe now and losing benefit of pain medication after 3 hours. Plan: Discontinue vancomycin so we don't have any issues with kidneys/hearing Start Daptomycin Get culture of wound Topical therapy to wound Increase frequency of pain medication for next 48 hours > 50 minutes spent on consult Wiliam Salomon M.D. [facility], Infectious Diseases (1) Cell (Call or Text) (2) [employer] Animation Chat: Available (3) ID Answering Service: Electronicallysigned by Wiliam Salomon MD on 06/24/2024 at 8:36 AM [facility] 06-24-2024 Plan of care note Problem: Knowledge Deficit Goal: Patient/family/caregiver demonstrates understanding of disease process, treatment plan, medications, and discharge instructions Outcome: Progressing Flowsheets (Taken 06/24/2024 0116) Patient/family/caregiver demonstrates understanding of disease process, treatment plan, medications, and discharge instructions: Provide teaching at level of understanding Complete learning assessment and assess knowledge base Provide teaching via preferred learning methods Problem: Potential for Compromised Skin Integrity Goal: Skin Integrity is Maintained or Improved Outcome: Progressing Flowsheets (Taken 06/24/2024115) Skin integrity is maintained or improved: Assess and monitor skin integrity Relieve pressure to bony prominences Collaborate with interdisciplinary team and initiate plans and interventions as needed Keep skin clean and dry Encourage use of lotion/moisturizer on skin Collaborate with wound, ostomy, and continence nurse Identify patients at risk for skin breakdown on admission and per policy Goal: Nutritional status is improving Outcome: Progressing Flowsheets (Taken 06/24/2024115) Nutritional status is improving: Monitor and assess patient for malnutrition (ex- brittle hair, bruises, dry skin, pale skin and conjunctiva, muscle wasting, smooth red tongue, and disorientation) Monitor patient's weight and dietary intake as ordered or per policy Utilize nutrition screening tool and intervene per policy Determine patient's food preferences and provide high-protein, high-caloric foods as appropriate Encourage patient to take dietary supplement as ordered Collaborate with clinical electrode cleaner Include patient/family/caregiver in decisions related to nutrition Problem: Urinary Incontinence Goal: Perineal skin integrity is maintained or improved Outcome: Progressing Flowsheets (Taken 06/24/2024115) Perineal skin integrity is maintained or improved: Assess genitourinary system, perineal skin, labs (urinalysis), and history of incontinence to include past management, aggravating, and alleviating factors Keep skin clean and dry Apply skin protectant [facility] 06-23-2024 Emergency department Note Unit made aware of impending patient transport to the unit via broadcast. [facility] 06-23-2024 Emergency department Note Unit made aware of impending patient transport to the unit via broadcast. Pt found to have disconnected J-loop from IV hub and bleeding. IV pulled without difficulty. Will attempt to start new IV to continue antibiotics and fluids. US at bedside. Pt transported to CT. Redness and swelling noted to left lower leg. Right hip incision noted to have an open area at the top. EMERGENCY DEPARTMENT ENCOUNTER Pt Name: Titi Hicks Birthdate 1965 Date of evaluation: 06/23/2024 ED Provider: Asher Rodriguez DO CHIEF COMPLAINT Chief Complaint Patient presents with Weakness, Gen Leg Pain HISTORY OF PRESENT ILLNESS (Location/Symptom, Timing/Onset, Context/Setting, Quality, Duration, Modifying Factors, Severity) Note limiting factors. I wore appropriate PPE for the entirety of this encounter. HPI Titi Hicks is a 58 y.o. with history of arthritis, thrombocytopenia, CAD, TIA who presents to the emergency department with chief complaint of left lower extremity pain and fall. Patient reports he had a wound repair last week, and was doing well however his pain has been worsening at the area of his wound repair. He reports he had a mechanical ground-level fall due to the pain earlier today and landed on his butt and now complaining about back pain. He denies any new numbness or tingling. Denies any fevers or chills. Denies other symptoms of chest pain, shortness of breath, dumping, nausea, vomiting, diarrhea, constipation, urinary complaints Nursing Notes were reviewed. Limitations to history: none Outside historians: none REVIEW OF SYSTEMS Review of Systems Pertinent positives and negatives as per HPI. 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 Back pain Benign essential HTN 01/29/2015 Blood circulation, collateral CAD (coronary artery disease) mild - dx on cath - neg stress Cerebral artery occlusion with cerebral infarction (HCC) patient states not ever confirmed as stoke Chronic kidney disease COPD (chronic obstructive pulmonary disease) (HCC) COVID-19 05/03 COVID-19 vaccine series completed 09/25/2020 Moderna COVID-19 vaccine series completed 12/04/2020 BOOSTER CS (cervical spondylosis) 12/25/2004 CERVICAL SPINE DJD Difficulty sleeping Dizziness GERD (gastroesophageal reflux disease) History of colonic polyps 06/21/2013 repeat 2019 Hyperlipidemia Hypothyroidism Insomnia 08/15/2014 Joint pain, hip Joint pain, knee Memory difficulties Motion sickness 05/24/2024 Muscle weakness Peripheral polyneuropathy 09/30/2020 Rheumatoid arthritis (HCC) Shortness of breath at rest Sleep apnea resolved with weight loss Snoring SOBOE (shortness of breath on exertion) Type 2 diabetes mellitus (HCC) 03/19/2021 resolved after weight loss SURGICAL HISTORY Past Surgical History: Procedure Laterality Date APPENDECTOMY BARIATRIC SURGERY 12/03/2021 Dr. Trevino CARDIAC CATHETERIZATION 12/17/2013 NORMAL CORONARY ARTERIES AND LVEF. COLONOSCOPY COLONOSCOPY 2020 CYSTOSCOPY 10/26/2020 CYSTOSCOPY 11/19/2020 CYSTOSCOPY 09/16/2023 EGD (HISTORICAL) 03/02/2023 NECK SURGERY Posterior cervical fusion PANNICULECTOMY (HISTORICAL) 09/23/2023 ROTATOR CUFF REPAIR Bilateral 2023 both surgeries UPPER GASTROINTESTINAL ENDOSCOPY 01/24/2021 Dr. Cabello CURRENT MEDICATIONS Previous Medications ACETAMINOPHEN (TYLENOL 8 HOUR) 650 MG ER TABLET Take 1 tablet (650 mg) by mouth every 8 hours as needed for mild pain (1-3) or moderate pain (4-6) (take as needed for pain). Do not crush, chew, or split. ALPRAZOLAM (XANAX) 1 MG TABLET Take 1 mg by mouth Nightly. ASPIRIN (ASPIR) 81 MG EC TABLET Take 1 tablet (81 mg) by mouth 2 times daily. Take 2 times a day for 30 days. This is for blood clot prevention. ASPIRIN 81 MG EC TABLET Take 81 mg by mouth daily. ATORVASTATIN (LIPITOR) 80 MG TABLET Take 80 mg by mouth Nightly. BACLOFEN (LIORESAL) 10 MG TABLET Take 10 mg by mouth 2 times daily. BUPROPION XL (WELLBUTRIN XL) 150 MG 24 HR TABLET Take 150 mg by mouth daily. BUSPIRONE (BUSPAR) 10 MG TABLET Take 10 mg by mouth 2 times daily. DICYCLOMINE (BENTYL) 10 MG CAPSULE Take 10 mg by mouth in the morning and 10 mg at noon and 10 mg in the evening and 10 mg before bedtime. DOCUSATE SODIUM (COLACE) 100 MG CAPSULE Take 1 capsule (100 mg) by mouth 2 times daily. Take 2 times a day as needed for constipation. FINASTERIDE (PROSCAR) 5 MG TABLET Take 1 tablet (5 mg) by mouth daily. Do not crush, chew, or split. FLUTICASONE (FLONASE) 50 MCG/ACT NASAL SPRAY Administer 1 spray into each nostril daily. FLUTICASONE-SALMETEROL (ADVAIR DISKUS) 250-50 MCG/ACT AEROSOL POWDER Inhale 1 puff 2 times daily. GABAPENTIN (NEURONTIN) 600 MG TABLET Take 600 mg by mouth 3 times daily. LEVOTHYROXINE (SYNTHROID, LEVOXYL) 75 MCG TABLET Take 1 tablet by mouth every morning (before breakfast). LIDOCAINE (LIDODERM) 5 % PATCH Apply 1 patch topically daily. MULTIPLE VITAMINS-MINERALS (MULTIVITAMIN ADULTS 50+ PO) Take 1 tablet by mouth daily. ONDANSETRON (ZOFRAN) 4 MG TABLET TAKE 1 TABLET BY MOUTH 3 TIMES DAILY NEEDED FOR NAUSEA & VOMITING NEEDED ONDANSETRON (ZOFRAN) 4 MG TABLET Take 1 tablet (4 mg) by mouth every 8 hours. Take 1 tablet every 8 hours as needed for nausea and/or vomiting. May take 2 tablets if needed. OXYCODONE-ACETAMINOPHEN (PERCOCET) 5-325 MG TABLET every 8 hours as needed. PANTOPRAZOLE (PROTONIX) 40 MG EC TABLET Take 1 tablet (40 mg) by mouth daily. PSYLLIUM (METAMUCIL) 58.6 % POWDER Take 5.12 g (3 g of fiber) by mouth 2 times daily. SERTRALINE (ZOLOFT) 50 MG TABLET Take 50 mg by mouth daily. TADALAFIL (CIALIS) 5 MG TABLET Take 1 tablet (5 mg) by mouth daily. TAMSULOSIN (FLOMAX) 0.4 MG 24 HR CAPSULE TAKE 1 CAPSULE BY MOUTH ONCE DAILY TIZANIDINE (ZANAFLEX) 2 MG TABLET Take 2 mg by mouth 2 times daily as needed. TRAMADOL (ULTRAM) 50 MG TABLET every 8 hours. VENTOLIN HFA 108 (90 BASE) MCG/ACT INHALER Inhale 2 puffs every 6 hours as needed. ALLERGIES Iodinated contrast media and Nsaids FAMILY HISTORY Family History Problem Relation Name Age of Onset Cancer Mother Kerri hicks Osteoarthritis Mother Kerri hicks Lung cancer Mother Kerri hicks smoker Coronary artery disease Other SOCIAL HISTORY Social History Socioeconomic History Marital status: Tobacco Use Smoking status: Never Smokeless tobacco: Never Vaping Use Vaping status: Never Used Substance and Sexual Activity Alcohol use: Never Drug use: Never Sexual activity: Yes Partners: Female control/protection: Surgical, None Social Drivers of Health Food Insecurity: No Food Insecurity (08/18/2023) Hunger Vital Sign Worried About Running Out of Food in the Last Year: Never true Ran Out of Food in the Last Year: Never true Transportation Needs: No Transportation Needs (10/01/2023) PRAPARE - Transportation Lack of Transportation (Medical): No Lack of Transportation (Non-Medical): No Intimate Partner Violence: Not At Risk (10/01/2023) Humiliation, Afraid, Rape, and Kick questionnaire Fear of Current or Ex-Partner: No Emotionally Abused: No Physically Abused: No Sexually Abused: No Housing Stability: Low Risk (10/01/2023) Housing Stability Vital Sign Unable to Pay for Housing in the Last Year: No Number of Times Moved in the Last Year: 1 Homeless in the Last Year: No SCREENINGS PHYSICAL EXAM ED Triage Vitals [06/23/24 1015] Temp Heart Rate Resp BP 36.8 C (98.3 F) 98 17 110/65 SpO2 Temp Source Heart Rate Source Patient Position 98 % Oral Monitor -- BP Location FiO2 (%) -- -- General: A&O x 3, well appearing, no acute distress Head: NC/AT Eyes: Atraumatic, EOMI, clear conjunctival, PERRLA Nose: Atraumatic, no skin changes Throat: Moist mucus membranes, uvula midline, oropharynx clear Neck: atraumatic, Supple, no lymphadenopathy, no stiffness or restricted ROM Heart: Normal rate and regular rhythm, no m/r/g Lungs: CTA bilaterally, no crackles or wheezes, no respiratory distress Abd: Soft, nontender, nondistended, no guarding Back: atraumatic, no step-off, No midline vertebral ttp, no CVA tenderness bilaterally Extremity: Left lower extremity with wound repair, sutures intact, no purulent drainage, however surrounding erythema, swelling, tender to touch, warm to touch Neurologic: Non focal exam, moving all extremities spontaneously, normal gait Skin: warm, dry, no obvious rashes DIAGNOSTIC RESULTS Procedures/EKG: EKG was reviewed by myself. Physician EKG interpretation can be found below in [facility] RADIOLOGY (Per Emergency Physician): As per below in [facility] section Interpretation per the Radiologist below, if available at the time of this note: CT abdomen pelvis wo IV contrast Final Result 1. No acute fracture is identified. 2. Small loculated fluid collections in the subcutaneous tissues adjacent to the right hip. These most likely reflect postoperative seromas. Correlate clinically to fully exclude an abscess or hematoma. 3. Mild splenomegaly. 4. Indeterminate 10 mm left renal cortical lesion. Recommend further evaluation with nonemergent renal ultrasound. If lesion is not adequately characterized with ultrasound, recommend further evaluation with multiphasic renal mass protocol MRI. 5. Mildly prominent left external iliac and inguinal lymph nodes. Report Dictated on Electronically Signed By: Mago Falcon MD Electronically Signed Date/Time: 06/23/2024 12:42 PM EDT XR tibia fibula 2 views left Final Result 1. No acute osseous abnormality. 2. Diffuse soft tissue swelling. No radiopaque foreign body. Report Dictated on Electronically Signed By: Mago Falcon MD Electronically Signed Date/Time: 06/23/2024 11:28 AM EDT Vascular US lower extremity venous duplex left (Results Pending) ED BEDSIDE ULTRASOUND: Performed by ED Physician - none LABS: Labs Reviewed CBC WITH AUTO DIFFERENTIAL - Abnormal Result Value Auto WBC 8.5 RBC 4.06 (*) Hemoglobin 11.3 (*) Hematocrit 35.4 (*) MCV 87.2 MCH 27.8 MCHC 31.9 RDW 13.2 Platelets 93 (*) MPV 9.1 IPF 1 BASIC METABOLIC PANEL - Abnormal SODIUM 134 (*) POTASSIUM 3.8 CHLORIDE 103 CARBON DIOXIDE 21 (*) UREA NITROGEN 13 CREATININE 1.24 GLUCOSE 106 (*) CALCIUM 8.8 ANION GAP 10 eGFR 66.6 C-REACTIVE PROTEIN - Abnormal C REACTIVE PROTEIN 115.7 (*) SEDIMENTATION RATE, AUTOMATED - Abnormal Sed Rate 37 (*) MANUAL DIFFERENTIAL (CELLAVISION) - Abnormal RBC Morphology abnormal Poikilocytes Slight (*) Hypochromia Slight (*) Polychromasia Slight (*) Ovalocytes Slight (*) Dacryocytes Slight (*) Stomatocytes Slight (*) Hypersegmented Neutrophils Present (*) Neutrophils % 90 (*) Bands % 1 (*) Lymphocytes % 4 (*) Atypical Lymphocytes % 2 (*) Monocytes % 3 (*) Absolute Neutrophil Count 7.7 (*) Bands Absolute 0.1 (*) Lymphocytes Absolute 0.3 (*) Atypical Lymphs Absolute 0.2 (*) Monocytes Absolute 0.3 Neutrophils Manual 90 Lymphocytes Manual 4 Monocytes Manual 3 Eosinophils Manual Basophils Manual Bands Manual 1 Metamyelocytes Manual Myelocytes Manual Promyelocytes Manual Blasts Manual Atypical Lymphocytes Manual 2 Unclassified Cells, Manual Manual nRBC per 100 Cells 1 LACTIC ACID WITH REFLEX - Normal LACTIC ACID 1.4 All other labs were within normal range or not returned as of this dictation. EMERGENCY DEPARTMENT COURSE and DIFFERENTIAL DIAGNOSIS/MDM: Vitals: Vitals: 06/23/24 1015 06/23/24 1130 06/23/24 1221 06/23/24 1230 BP: 110/65 136/83 (!) 143/64 128/66 Pulse: 98 98 98 (!) 114 Resp: Temp: 36.8 C (98.3 F) TempSrc: Oral SpO2: 98% 94% 99% 97% Weight: 120 kg (265 lb) Height: 1.88 m (6' 2) Diagnoses as of 06/23/24 1608 Pain and swelling of left lower leg Medications vancomycin in NS (Vancocin) IVPB 2,000 mg (has no administration in time range) morphine injection 4 mg (4 mg IntraVENous Given 06/23/24 1121) ondansetron (Zofran) injection 4 mg (4 mg IntraVENous Given 06/23/24 1120) sodium chloride 0.9 % bolus 500 mL (500 mL IntraVENous New Bag 06/23/24 1232) piperacillin-tazobactam (Zosyn) 4,500 mg in sodium chloride 0.9 % 100 mL IVPB Mini-Bag Plus (0 mg IntraVENous Stopped 06/23/24 1531) morphine injection 4 mg (4 mg IntraVENous Given 06/23/24 1451) ondansetron (Zofran) injection 4 mg (4 mg IntraVENous Given 06/23/24 8787) Patient with hx of tia presents to the ED with a chief complaint of LLE pain. On exam, vitals tachycardic. LLE with sutures in place, surrounding erythema. Otherwise per above (Differential diagnosis) With consideration of age, sex/gender, risk factors, to evaluate patient for high risk causes of morbidity and mortality such as, but not limited to, Acute infectious process (cellulitis) vs allergic reaction vs other. Low concerns for DVT or osteomyelitis at this time. Today we will obtain labs and imaging We will also provide medical/symptomatic management with pain control. Diagnostic tests considered but not performed: n/a Independently reviewed external documents including previous FM notes. Per chart review, patient has been followed for or diagnosed with TIA, arthritis in the past. Patient's condition and/or care was impacted by these chronic conditions. Will consider these factors in evaluation and management for today's care. Discussed plan with patient who agrees with current plan. REVAL: End of visit medical decision making Patient was reassessed. Resting comfortably. No acute distress. Independently reviewed and interpreted the lab results which demonstrated the following: No leukocytosis however left shift noted, anemia 11.3, electrolytes within normal limits, CRP elevated 115, lactic acid negative, ESR 37 Independently reviewed the reports of other imaging which demonstrated the following: No acute osseous abnormality. 2. Diffuse soft tissue swelling. No radiopaque foreign body. 1. No acute fracture is identified. 2. Small loculated fluid collections in the subcutaneous tissues adjacent to the right hip. These most likely reflect postoperative seromas. Correlate clinically to fully exclude an abscess or hematoma. 3. Mild splenomegaly. 4. Indeterminate 10 mm left renal cortical lesion. Recommend further evaluation with nonemergent renal ultrasound. If lesion is not adequately characterized with ultrasound, recommend further evaluation with multiphasic renal mass protocol MRI. 5. Mildly prominent left external iliac and inguinal lymph nodes. Ultrasound with no DVT of the left lower extremity Response to medical management provided in the ED: Today's workup demonstrated concerns of worsening cellulitis with possible inguinal lymph node involvement. After thorough discussion with patient, patient has chronic antalgic gait due to right hip issues. Now no longer able to bear weight on left lower extremity. Patient would benefit from inpatient antibiotics until improvement of symptoms (Consults) Discussed care with: Discussed case with instructional design consultant, admitting team. They agree with current work up and management. They will evaluate and provide further recommendations, please refer to their note for detailed explanation. They agree to admit the patient for further workup and management. Discussed all results with patient and/or family members. They verbalize understanding. Offered admission for further management. Discussed risks, benefits and alternatives for further management in the hospital. Due to high risk of morbidity and mortality of the stated findings and results, patient will be admitted for further management and care. Patient is agreeable to the plan. Discussed patient information, presentation and workup with admitting team. Admitting team is agreeable to current workup and evaluation. They will admit the patient and provide further care. Pending results to be followed by primary admitting team. Patient will need med level of care and not appropriate for lower acuity location of care due to risk of morbidity and mortality Patient's condition and/or care was impacted by LLE wound Patient's condition and/or care was significantly impacted by social determinants of health including: na CRITICAL CARE TIME none CONSULTS: None PROCEDURES: Unless otherwise noted below, none Procedures Patients symptoms are consistent with sepsis, severe sepsis, or septic shock (If yes use .sepsiscoremeasure): FINAL IMPRESSION 1. Pain and swelling of left lower leg DISPOSITION Admit 06/23/2024 03:39:34 PM PATIENT REFERRED TO: No follow-up provider specified. DISCHARGE MEDICATIONS: New Prescriptions No medications on file (Comment: Please note this report has been produced using speech recognition software and may contain errors related to that system including errors in grammar, punctuation, and spelling, as well as words and phrases that may be inappropriate. If there are any questions or concerns please feel free to contact the dictating provider for clarification.) Asher Rodriguez DO (electronically signed) Emergency Medicine Provider Asher Rodriguez DO 06/23/24 1918 Pt here to the ER via EMS after a fall at home. Pt c/o weakness and pain bilateral legs. Pt had R hip replacement 10 days ago. Pt c/o of left leg burning. documented in this encounter [facility] 06-23-2024 History and physical note Attending History and Physical Admit Date: 06/23/2024 PCP: WILIAM FERNANDEZ MD CHIEF COMPLAINT: LLE wound with erythema and increased pain Reason for Admission: LLE wound with cellulitis History Obtained From: patient/chart HISTORY OF PRESENT ILLNESS: Sophie is a 58 y.o. male with past medical history below who presents with chief complaint listed above. He had a LLE wound sutured last weak and has been having increasing pain especially with mobilization. Today he fell after becoming unsteady on his feet due to pain. He has had increasing redness and swelling in his LLE. He had a recent R GEORGE and the op site has been benign. He denies cp, sob, cough, n/v, f/c. He is very weak. He has increased LLE pain and LBP. Will admit for further evaluation and management. 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 Back pain Benign essential HTN 01/29/2015 Blood circulation, collateral CAD (coronary artery disease) mild - dx on cath - neg stress Cerebral artery occlusion with cerebral infarction (HCC) patient states not ever confirmed as stoke Chronic kidney disease COPD (chronic obstructive pulmonary disease) (HCC) COVID-19 05/03 COVID-19 vaccine series completed 09/25/2020 Moderna COVID-19 vaccine series completed 12/04/2020 BOOSTER CS (cervical spondylosis) 12/25/2004 CERVICAL SPINE DJD Difficulty sleeping Dizziness GERD (gastroesophageal reflux disease) History of colonic polyps 06/21/2013 repeat 2019 Hyperlipidemia Hypothyroidism Insomnia 08/15/2014 Joint pain, hip Joint pain, knee Memory difficulties Motion sickness 05/24/2024 Muscle weakness Peripheral polyneuropathy 09/30/2020 Rheumatoid arthritis (HCC) Shortness of breath at rest Sleep apnea resolved with weight loss Snoring SOBOE (shortness of breath on exertion) Type 2 diabetes mellitus (HCC) 03/19/2021 resolved after weight loss Past Surgical History: Past Surgical History: Procedure Laterality Date APPENDECTOMY BARIATRIC SURGERY 12/03/2021 Dr. Trevino CARDIAC CATHETERIZATION 12/17/2013 NORMAL CORONARY ARTERIES AND LVEF. COLONOSCOPY COLONOSCOPY 2020 CYSTOSCOPY 10/26/2020 CYSTOSCOPY 11/19/2020 CYSTOSCOPY 09/16/2023 EGD (HISTORICAL) 03/02/2023 NECK SURGERY Posterior cervical fusion PANNICULECTOMY (HISTORICAL) 09/23/2023 ROTATOR CUFF REPAIR Bilateral 2023 both surgeries UPPER GASTROINTESTINAL ENDOSCOPY 01/24/2021 Dr. Cabello Social History: Social History Socioeconomic History Marital status: Spouse name: Not on file Number of children: Not on file Years of education: Not on file Highest education level: Not on file Occupational History Not on file Tobacco Use Smoking status: Never Smokeless tobacco: Never Vaping Use Vaping status: Never Used Substance and Sexual Activity Alcohol use: Never Drug use: Never Sexual activity: Yes Partners: Female control/protection: Surgical, None Other Topics Concern Not on file Social History Narrative Not on file Social Drivers of Health Financial Resource Strain: Not on file Food Insecurity: No Food Insecurity (08/18/2023) Hunger Vital Sign Worried About Running Out of Food in the Last Year: Never true Ran Out of Food in the Last Year: Never true Transportation Needs: No Transportation Needs (10/01/2023) PRAPARE - Transportation Lack of Transportation (Medical): No Lack of Transportation (Non-Medical): No Physical Activity: Not on file Stress: Not on file Social Connections: Not on file Intimate Partner Violence: Not At Risk (10/01/2023) Humiliation, Afraid, Rape, and Kick questionnaire Fear of Current or Ex-Partner: No Emotionally Abused: No Physically Abused: No Sexually Abused: No Housing Stability: Low Risk (10/01/2023) Housing Stability Vital Sign Unable to Pay for Housing in the Last Year: No Number of Times Moved in the Last Year: 1 Homeless in the Last Year: No Family History: Family History Problem Relation Name Age of Onset Cancer Mother Kerri hicks Osteoarthritis Mother Kerri hicks Lung cancer Mother Kerri hicks smoker Coronary artery disease Other Medications Prior to Admission: No current facility-administered medications on file prior to encounter. Current Outpatient Medications on File Prior to Encounter Medication Sig Dispense Refill acetaminophen (Tylenol 8 Hour) 650 MG ER tablet Take 1 tablet (650 mg) by mouth every 8 hours as needed for mild pain (1-3) or moderate pain (4-6) (take as needed for pain). Do not crush, chew, or split. 90 tablet 0 ALPRAZolam (Xanax) 1 MG tablet Take 1 mg by mouth Nightly. aspirin (ASPIR) 81 MG EC tablet Take 1 tablet (81 mg) by mouth 2 times daily. Take 2 times a day for 30 days. This is for blood clot prevention. 60 tablet 0 aspirin 81 MG EC tablet Take 81 mg by mouth daily. atorvastatin (Lipitor) 80 MG tablet Take 80 mg by mouth Nightly. baclofen (Lioresal) 10 MG tablet Take 10 mg by mouth 2 times daily. buPROPion XL (Wellbutrin XL) 150 MG 24 hr tablet Take 150 mg by mouth daily. busPIRone (Buspar) 10 MG tablet Take 10 mg by mouth 2 times daily. dicyclomine (Bentyl) 10 MG capsule Take 10 mg by mouth in the morning and 10 mg at noon and 10 mg in the evening and 10 mg before bedtime. docusate sodium (Colace) 100 MG capsule Take 1 capsule (100 mg) by mouth 2 times daily. Take 2 times a day as needed for constipation. 60 capsule 0 finasteride (Proscar) 5 MG tablet Take 1 tablet (5 mg) by mouth daily. Do not crush, chew, or split. 90 tablet 3 fluticasone (Flonase) 50 MCG/ACT nasal spray Administer 1 spray into each nostril daily. (Patient not taking: Reported on 05/27/2024) Fluticasone-Salmeterol (Advair Diskus) 250-50 MCG/ACT aerosol powder Inhale 1 puff 2 times daily. gabapentin (Neurontin) 600 MG tablet Take 600 mg by mouth 3 times daily. levothyroxine (Synthroid, Levoxyl) 75 MCG tablet Take 1 tablet by mouth every morning (before breakfast). lidocaine (Lidoderm) 5 % patch Apply 1 patch topically daily. Multiple Vitamins-Minerals (MULTIVITAMIN ADULTS 50+ PO) Take 1 tablet by mouth daily. ondansetron (Zofran) 4 MG tablet TAKE 1 TABLET BY MOUTH 3 TIMES DAILY NEEDED FOR NAUSEA & VOMITING NEEDED ondansetron (Zofran) 4 MG tablet Take 1 tablet (4 mg) by mouth every 8 hours. Take 1 tablet every 8 hours as needed for nausea and/or vomiting. May take 2 tablets if needed. 10 tablet 0 oxyCODONE-acetaminophen (Percocet) 5-325 MG tablet every 8 hours as needed. pantoprazole (ProtoNix) 40 MG EC tablet Take 1 tablet (40 mg) by mouth daily. 30 tablet 5 psyllium (Metamucil) 58.6 % powder Take 5.12 g (3 g of fiber) by mouth 2 times daily. 283 g 0 sertraline (Zoloft) 50 MG tablet Take 50 mg by mouth daily. tadalafil (Cialis) 5 MG tablet Take 1 tablet (5 mg) by mouth daily. 90 tablet 3 tamsulosin (Flomax) 0.4 MG 24 hr capsule TAKE 1 CAPSULE BY MOUTH ONCE DAILY 90 capsule 3 tiZANidine (Zanaflex) 2 MG tablet Take 2 mg by mouth 2 times daily as needed. traMADol (Ultram) 50 MG tablet every 8 hours. Ventolin HFA 108 (90 Base) MCG/ACT inhaler Inhale 2 puffs every 6 hours as needed. [DISCONTINUED] acetaminophen (Tylenol 8 Hour) 650 MG ER tablet Take 1 tablet (650 mg) by mouth every 8 hours as needed for mild pain (1-3) or moderate pain (4-6) (take as needed for pain). Do not crush, chew, or split. 90 tablet 0 Allergies: Allergies Allergen Reactions Iodinated Contrast Media Other reaction(s): Kidney disease Nsaids Other reaction(s): Kidney disease Due to Kidney Disease REVIEW OF SYSTEMS: As per HPI otherwise 10 system review is unremarkable. Vitals: BP 128/66 Pulse (!) 114 Temp 36.8 C (98.3 F) (Oral) Resp 25 Ht 6' 2 (1.88 m) Wt 265 lb (120 kg) SpO2 97% BMI 34.02 kg/m BMI Classification: Obese (BMI 30.0-39.9) Pulse Ox: SpO2 Av % Min: 94 % Max: 99 % Supplemental O2: PHYSICAL EXAM: Physical Exam Vitals and nursing note reviewed. Constitutional: General: He is not in acute distress. Appearance: He is obese. HENT: Head: Normocephalic and atraumatic. Mouth/Throat: Mouth: Mucous membranes are dry. Eyes: Extraocular Movements: Extraocular movements intact. Conjunctiva/sclera: Conjunctivae normal. Pupils: Pupils are equal, round, and reactive to light. Cardiovascular: Rate and Rhythm: Regular rhythm. Tachycardia present. Pulses: Normal pulses. Heart sounds: Murmur heard. Pulmonary: Effort: Pulmonary effort is normal. Breath sounds: Normal breath sounds. Abdominal: General: Bowel sounds are normal. There is no distension. Palpations: Abdomen is soft. Tenderness: There is no abdominal tenderness. There is no rebound. Musculoskeletal: General: Tenderness and signs of injury present. Normal range of motion. Cervical back: Neck supple. Right lower leg: No edema. Left lower leg: Edema present. Skin: General: Skin is warm. Capillary Refill: Capillary refill takes less than 2 seconds. Findings: Erythema and lesion present. Neurological: General: No focal deficit present. Mental Status: He is alert and oriented to person, place, and time. Mental status is at baseline. Psychiatric: Mood and Affect: Mood normal. DATA: CBC: Recent Labs 06/23/24 1119 WBC 8.5 RBC 4.06* HGB 11.3* HCT 35.4* MCV 87.2 RDW 13.2 PLT 93* BMP: Recent Labs 06/23/24 1119 NA 134* K 3.8 CL 103 CO2 21* BUN 13 CREATININE 1.24 GLUCOSE 106* CALCIUM 8.8 ANIONGAP 10 LIVER PROFILE:No results for input(s): AST, ALT, BILITOT, ALKPHOS, PROT in the last 72 hours. No lab exists for component: LABALBU PT/INR: No results for input(s): PROTIME, INR in the last 72 hours. CARDIAC ENZYMES: No results for input(s): TROPONINI in the last 72 hours. Procalcitonin: No results found for: PROCAL Urine Culture: Results for orders placed or performed during the hospital encounter of 08/21/23 Urine culture Collection Time: 08/21/23 10:32 PM Specimen: Urine, Clean Catch Result Value Ref Range Urine Culture No growth (<1,000 CFU/mL) COVID-19 PCR: No results for input(s): COVID19 in the last 72 hours. I reviewed: [x] laboratory results [x] radiographic results At the time of today's encounter. Pt was advised of the results. Assessment LLE cellulitis LLE wound s/p recent closure Anemia Thrombocytopenia Recent R GEORGE HTN Pafib CAD COPD Hyperlipidemia Hypothyroidism CKD GERD BPH Depression Obesity Plan I discussed management with the ED clinician and agree with the need for hospitalization, IV antibiotics, pain control, ID evaluation, wound care evaluation, follow up LE US, may need culture of wound, increase activity, PT/OT, review home meds and continue as appropriate, follow up labs, discharge planning, see admission orders. - am labs, replace lytes prn - PT/OT/CM/SW - delirium precautions: increase activity - DVT prophylaxis: enoxaparin and encourage ambulation Advance Directive: Prior Anticipated Discharge - Date - 06/25-06/27 - Location - Home with Home Health Care vs skilled facility - Pending the following - clinical improvement, completion of work up and when OK with consultants Total time spent (which include face to face and non face to face encounters) : 6 minutes. Toxic drug monitoring/narrow therapeutic index drug monitoring : # Drug name : # Route administered : # Method of monitoring : Extended Emergency Contact Information Primary Emergency Contact: Ellie Hicks Relation: Spouse Motor Builder Assembler needed? No Yadiel Boss MD Division of Hospitalist Medicine [facility] 06-23-2024 Note [facility] 06-23-2024 History and physical note Attending History and Physical Admit Date: 06/23/2024 PCP: WILIAM FERNANDEZ MD CHIEF COMPLAINT: LLE wound with erythema and increased pain Reason for Admission: LLE wound with cellulitis History Obtained From: patient/chart HISTORY OF PRESENT ILLNESS: Sophie is a 58 y.o. male with past medical history below who presents with chief complaint listed above. He had a LLE wound sutured last weak and has been having increasing pain especially with mobilization. Today he fell after becoming unsteady on his feet due to pain. He has had increasing redness and swelling in his LLE. He had a recent R GEORGE and the op site has been benign. He denies cp, sob, cough, n/v, f/c. He is very weak. He has increased LLE pain and LBP. Will admit for further evaluation and management. 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 Back pain Benign essential HTN 01/29/2015 Blood circulation, collateral CAD (coronary artery disease) mild - dx on cath - neg stress Cerebral artery occlusion with cerebral infarction (HCC) patient states not ever confirmed as stoke Chronic kidney disease COPD (chronic obstructive pulmonary disease) (HCC) COVID-19 05/03 COVID-19 vaccine series completed 09/25/2020 Moderna COVID-19 vaccine series completed 12/04/2020 BOOSTER CS (cervical spondylosis) 12/25/2004 CERVICAL SPINE DJD Difficulty sleeping Dizziness GERD (gastroesophageal reflux disease) History of colonic polyps 06/21/2013 repeat 2019 Hyperlipidemia Hypothyroidism Insomnia 08/15/2014 Joint pain, hip Joint pain, knee Memory difficulties Motion sickness 05/24/2024 Muscle weakness Peripheral polyneuropathy 09/30/2020 Rheumatoid arthritis (HCC) Shortness of breath at rest Sleep apnea resolved with weight loss Snoring SOBOE (shortness of breath on exertion) Type 2 diabetes mellitus (HCC) 03/19/2021 resolved after weight loss Past Surgical History: Past Surgical History: Procedure Laterality Date APPENDECTOMY BARIATRIC SURGERY 12/03/2021 Dr. Trevino CARDIAC CATHETERIZATION 12/17/2013 NORMAL CORONARY ARTERIES AND LVEF. COLONOSCOPY COLONOSCOPY 2020 CYSTOSCOPY 10/26/2020 CYSTOSCOPY 11/19/2020 CYSTOSCOPY 09/16/2023 EGD (HISTORICAL) 03/02/2023 NECK SURGERY Posterior cervical fusion PANNICULECTOMY (HISTORICAL) 09/23/2023 ROTATOR CUFF REPAIR Bilateral 2023 both surgeries UPPER GASTROINTESTINAL ENDOSCOPY 01/24/2021 Dr. Cabello Social History: Social History Socioeconomic History Marital status: Spouse name: Not on file Number of children: Not on file Years of education: Not on file Highest education level: Not on file Occupational History Not on file Tobacco Use Smoking status: Never Smokeless tobacco: Never Vaping Use Vaping status: Never Used Substance and Sexual Activity Alcohol use: Never Drug use: Never Sexual activity: Yes Partners: Female control/protection: Surgical, None Other Topics Concern Not on file Social History Narrative Not on file Social Drivers of Health Financial Resource Strain: Not on file Food Insecurity: No Food Insecurity (08/18/2023) Hunger Vital Sign Worried About Running Out of Food in the Last Year: Never true Ran Out of Food in the Last Year: Never true Transportation Needs: No Transportation Needs (10/01/2023) PRAPARE - Transportation Lack of Transportation (Medical): No Lack of Transportation (Non-Medical): No Physical Activity: Not on file Stress: Not on file Social Connections: Not on file Intimate Partner Violence: Not At Risk (10/01/2023) Humiliation, Afraid, Rape, and Kick questionnaire Fear of Current or Ex-Partner: No Emotionally Abused: No Physically Abused: No Sexually Abused: No Housing Stability: Low Risk (10/01/2023) Housing Stability Vital Sign Unable to Pay for Housing in the Last Year: No Number of Times Moved in the Last Year: 1 Homeless in the Last Year: No Family History: Family History Problem Relation Name Age of Onset Cancer Mother Kerri hicks Osteoarthritis Mother Kerri hicks Lung cancer Mother Kerri hicks smoker Coronary artery disease Other Medications Prior to Admission: No current facility-administered medications on file prior to encounter. Current Outpatient Medications on File Prior to Encounter Medication Sig Dispense Refill acetaminophen (Tylenol 8 Hour) 650 MG ER tablet Take 1 tablet (650 mg) by mouth every 8 hours as needed for mild pain (1-3) or moderate pain (4-6) (take as needed for pain). Do not crush, chew, or split. 90 tablet 0 ALPRAZolam (Xanax) 1 MG tablet Take 1 mg by mouth Nightly. aspirin (ASPIR) 81 MG EC tablet Take 1 tablet (81 mg) by mouth 2 times daily. Take 2 times a day for 30 days. This is for blood clot prevention. 60 tablet 0 aspirin 81 MG EC tablet Take 81 mg by mouth daily. atorvastatin (Lipitor) 80 MG tablet Take 80 mg by mouth Nightly. baclofen (Lioresal) 10 MG tablet Take 10 mg by mouth 2 times daily. buPROPion XL (Wellbutrin XL) 150 MG 24 hr tablet Take 150 mg by mouth daily. busPIRone (Buspar) 10 MG tablet Take 10 mg by mouth 2 times daily. dicyclomine (Bentyl) 10 MG capsule Take 10 mg by mouth in the morning and 10 mg at noon and 10 mg in the evening and 10 mg before bedtime. docusate sodium (Colace) 100 MG capsule Take 1 capsule (100 mg) by mouth 2 times daily. Take 2 times a day as needed for constipation. 60 capsule 0 finasteride (Proscar) 5 MG tablet Take 1 tablet (5 mg) by mouth daily. Do not crush, chew, or split. 90 tablet 3 fluticasone (Flonase) 50 MCG/ACT nasal spray Administer 1 spray into each nostril daily. (Patient not taking: Reported on 05/27/2024) Fluticasone-Salmeterol (Advair Diskus) 250-50 MCG/ACT aerosol powder Inhale 1 puff 2 times daily. gabapentin (Neurontin) 600 MG tablet Take 600 mg by mouth 3 times daily. levothyroxine (Synthroid, Levoxyl) 75 MCG tablet Take 1 tablet by mouth every morning (before breakfast). lidocaine (Lidoderm) 5 % patch Apply 1 patch topically daily. Multiple Vitamins-Minerals (MULTIVITAMIN ADULTS 50+ PO) Take 1 tablet by mouth daily. ondansetron (Zofran) 4 MG tablet TAKE 1 TABLET BY MOUTH 3 TIMES DAILY NEEDED FOR NAUSEA & VOMITING NEEDED ondansetron (Zofran) 4 MG tablet Take 1 tablet (4 mg) by mouth every 8 hours. Take 1 tablet every 8 hours as needed for nausea and/or vomiting. May take 2 tablets if needed. 10 tablet 0 oxyCODONE-acetaminophen (Percocet) 5-325 MG tablet every 8 hours as needed. pantoprazole (ProtoNix) 40 MG EC tablet Take 1 tablet (40 mg) by mouth daily. 30 tablet 5 psyllium (Metamucil) 58.6 % powder Take 5.12 g (3 g of fiber) by mouth 2 times daily. 283 g 0 sertraline (Zoloft) 50 MG tablet Take 50 mg by mouth daily. tadalafil (Cialis) 5 MG tablet Take 1 tablet (5 mg) by mouth daily. 90 tablet 3 tamsulosin (Flomax) 0.4 MG 24 hr capsule TAKE 1 CAPSULE BY MOUTH ONCE DAILY 90 capsule 3 tiZANidine (Zanaflex) 2 MG tablet Take 2 mg by mouth 2 times daily as needed. traMADol (Ultram) 50 MG tablet every 8 hours. Ventolin HFA 108 (90 Base) MCG/ACT inhaler Inhale 2 puffs every 6 hours as needed. [DISCONTINUED] acetaminophen (Tylenol 8 Hour) 650 MG ER tablet Take 1 tablet (650 mg) by mouth every 8 hours as needed for mild pain (1-3) or moderate pain (4-6) (take as needed for pain). Do not crush, chew, or split. 90 tablet 0 Allergies: Allergies Allergen Reactions Iodinated Contrast Media Other reaction(s): Kidney disease Nsaids Other reaction(s): Kidney disease Due to Kidney Disease REVIEW OF SYSTEMS: As per HPI otherwise 10 system review is unremarkable. Vitals: BP 128/66 Pulse (!) 114 Temp 36.8 C (98.3 F) (Oral) Resp 25 Ht 6' 2 (1.88 m) Wt 265 lb (120 kg) SpO2 97% BMI 34.02 kg/m BMI Classification: Obese (BMI 30.0-39.9) Pulse Ox: SpO2 Av % Min: 94 % Max: 99 % Supplemental O2: PHYSICAL EXAM: Physical Exam Vitals and nursing note reviewed. Constitutional: General: He is not in acute distress. Appearance: He is obese. HENT: Head: Normocephalic and atraumatic. Mouth/Throat: Mouth: Mucous membranes are dry. Eyes: Extraocular Movements: Extraocular movements intact. Conjunctiva/sclera: Conjunctivae normal. Pupils: Pupils are equal, round, and reactive to light. Cardiovascular: Rate and Rhythm: Regular rhythm. Tachycardia present. Pulses: Normal pulses. Heart sounds: Murmur heard. Pulmonary: Effort: Pulmonary effort is normal. Breath sounds: Normal breath sounds. Abdominal: General: Bowel sounds are normal. There is no distension. Palpations: Abdomen is soft. Tenderness: There is no abdominal tenderness. There is no rebound. Musculoskeletal: General: Tenderness and signs of injury present. Normal range of motion. Cervical back: Neck supple. Right lower leg: No edema. Left lower leg: Edema present. Skin: General: Skin is warm. Capillary Refill: Capillary refill takes less than 2 seconds. Findings: Erythema and lesion present. Neurological: General: No focal deficit present. Mental Status: He is alert and oriented to person, place, and time. Mental status is at baseline. Psychiatric: Mood and Affect: Mood normal. DATA: CBC: Recent Labs 06/23/24 1119 WBC 8.5 RBC 4.06* HGB 11.3* HCT 35.4* MCV 87.2 RDW 13.2 PLT 93* BMP: Recent Labs 06/23/24 1119 NA 134* K 3.8 CL 103 CO2 21* BUN 13 CREATININE 1.24 GLUCOSE 106* CALCIUM 8.8 ANIONGAP 10 LIVER PROFILE:No results for input(s): AST, ALT, BILITOT, ALKPHOS, PROT in the last 72 hours. No lab exists for component: LABALBU PT/INR: No results for input(s): PROTIME, INR in the last 72 hours. CARDIAC ENZYMES: No results for input(s): TROPONINI in the last 72 hours. Procalcitonin: No results found for: PROCAL Urine Culture: Results for orders placed or performed during the hospital encounter of 08/21/23 Urine culture Collection Time: 08/21/23 10:32 PM Specimen: Urine, Clean Catch Result Value Ref Range Urine Culture No growth (<1,000 CFU/mL) COVID-19 PCR: No results for input(s): COVID19 in the last 72 hours. I reviewed: [x] laboratory results [x] radiographic results At the time of today's encounter. Pt was advised of the results. Assessment LLE cellulitis LLE wound s/p recent closure Anemia Thrombocytopenia Recent R GEORGE HTN Pafib CAD COPD Hyperlipidemia Hypothyroidism CKD GERD BPH Depression Obesity Plan I discussed management with the ED clinician and agree with the need for hospitalization, IV antibiotics, pain control, ID evaluation, wound care evaluation, follow up LE US, may need culture of wound, increase activity, PT/OT, review home meds and continue as appropriate, follow up labs, discharge planning, see admission orders. - am labs, replace lytes prn - PT/OT/CM/SW - delirium precautions: increase activity - DVT prophylaxis: enoxaparin and encourage ambulation Advance Directive: Prior Anticipated Discharge - Date - 06/25-06/27 - Location - Home with Home Health Care vs skilled facility - Pending the following - clinical improvement, completion of work up and when OK with consultants Total time spent (which include face to face and non face to face encounters) : 6 minutes. Toxic drug monitoring/narrow therapeutic index drug monitoring : # Drug name : # Route administered : # Method of monitoring : Extended Emergency Contact Information Primary Emergency Contact: Ellie Hicks Relation: Spouse Motor Builder Assembler needed? No Yadiel Boss MD Division of Hospitalist Medicine [facility] documented in this encounter [facility] 06-23-2024 Emergency department Note Pt found to have disconnected J-loop from IV hub and bleeding. IV pulled without difficulty. Will attempt to start new IV to continue antibiotics and fluids. [facility] 06-23-2024 Emergency department Note US at bedside. [facility] 06-23-2024 Emergency department Note Pt transported to OR. [facility] 06-23-2024 Emergency department Note Redness and swelling noted to left lower leg. Right hip incision noted to have an open area at the top. [facility] 06-23-2024 Emergency department Triage note Pt here to the ER via EMS after a fall at home. Pt c/o weakness and pain bilateral legs. Pt had R hip replacement 10 days ago. Pt c/o of left leg burning. [facility] 06-23-2024 Physician Emergency department Note EMERGENCY DEPARTMENT ENCOUNTER Pt Name: Titi Hicks Birthdate 1965 Date of evaluation: 06/23/2024 ED Provider: Asher Rodriguez DO CHIEF COMPLAINT Chief Complaint Patient presents with Weakness, Gen Leg Pain HISTORY OF PRESENT ILLNESS (Location/Symptom, Timing/Onset, Context/Setting, Quality, Duration, Modifying Factors, Severity) Note limiting factors. I wore appropriate PPE for the entirety of this encounter. HPI Titi Hicks is a 58 y.o. with history of arthritis, thrombocytopenia, CAD, TIA who presents to the emergency department with chief complaint of left lower extremity pain and fall. Patient reports he had a wound repair last week, and was doing well however his pain has been worsening at the area of his wound repair. He reports he had a mechanical ground-level fall due to the pain earlier today and landed on his butt and now complaining about back pain. He denies any new numbness or tingling. Denies any fevers or chills. Denies other symptoms of chest pain, shortness of breath, dumping, nausea, vomiting, diarrhea, constipation, urinary complaints Nursing Notes were reviewed. Limitations to history: none Outside historians: none REVIEW OF SYSTEMS Review of Systems Pertinent positives and negatives as per HPI. 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 Back pain Benign essential HTN 01/29/2015 Blood circulation, collateral CAD (coronary artery disease) mild - dx on cath - neg stress Cerebral artery occlusion with cerebral infarction (HCC) patient states not ever confirmed as stoke Chronic kidney disease COPD (chronic obstructive pulmonary disease) (HCC) COVID-19 05/03 COVID-19 vaccine series completed 09/25/2020 Moderna COVID-19 vaccine series completed 12/04/2020 BOOSTER CS (cervical spondylosis) 12/25/2004 CERVICAL SPINE DJD Difficulty sleeping Dizziness GERD (gastroesophageal reflux disease) History of colonic polyps 06/21/2013 repeat 2019 Hyperlipidemia Hypothyroidism Insomnia 08/15/2014 Joint pain, hip Joint pain, knee Memory difficulties Motion sickness 05/24/2024 Muscle weakness Peripheral polyneuropathy 09/30/2020 Rheumatoid arthritis (HCC) Shortness of breath at rest Sleep apnea resolved with weight loss Snoring SOBOE (shortness of breath on exertion) Type 2 diabetes mellitus (HCC) 03/19/2021 resolved after weight loss SURGICAL HISTORY Past Surgical History: Procedure Laterality Date APPENDECTOMY BARIATRIC SURGERY 12/03/2021 Dr. Trevino CARDIAC CATHETERIZATION 12/17/2013 NORMAL CORONARY ARTERIES AND LVEF. COLONOSCOPY COLONOSCOPY 2020 CYSTOSCOPY 10/26/2020 CYSTOSCOPY 11/19/2020 CYSTOSCOPY 09/16/2023 EGD (HISTORICAL) 03/02/2023 NECK SURGERY Posterior cervical fusion PANNICULECTOMY (HISTORICAL) 09/23/2023 ROTATOR CUFF REPAIR Bilateral 2023 both surgeries UPPER GASTROINTESTINAL ENDOSCOPY 01/24/2021 Dr. Cabello CURRENT MEDICATIONS Previous Medications ACETAMINOPHEN (TYLENOL 8 HOUR) 650 MG ER TABLET Take 1 tablet (650 mg) by mouth every 8 hours as needed for mild pain (1-3) or moderate pain (4-6) (take as needed for pain). Do not crush, chew, or split. ALPRAZOLAM (XANAX) 1 MG TABLET Take 1 mg by mouth Nightly. ASPIRIN (ASPIR) 81 MG EC TABLET Take 1 tablet (81 mg) by mouth 2 times daily. Take 2 times a day for 30 days. This is for blood clot prevention. ASPIRIN 81 MG EC TABLET Take 81 mg by mouth daily. ATORVASTATIN (LIPITOR) 80 MG TABLET Take 80 mg by mouth Nightly. BACLOFEN (LIORESAL) 10 MG TABLET Take 10 mg by mouth 2 times daily. BUPROPION XL (WELLBUTRIN XL) 150 MG 24 HR TABLET Take 150 mg by mouth daily. BUSPIRONE (BUSPAR) 10 MG TABLET Take 10 mg by mouth 2 times daily. DICYCLOMINE (BENTYL) 10 MG CAPSULE Take 10 mg by mouth in the morning and 10 mg at noon and 10 mg in the evening and 10 mg before bedtime. DOCUSATE SODIUM (COLACE) 100 MG CAPSULE Take 1 capsule (100 mg) by mouth 2 times daily. Take 2 times a day as needed for constipation. FINASTERIDE (PROSCAR) 5 MG TABLET Take 1 tablet (5 mg) by mouth daily. Do not crush, chew, or split. FLUTICASONE (FLONASE) 50 MCG/ACT NASAL SPRAY Administer 1 spray into each nostril daily. FLUTICASONE-SALMETEROL (ADVAIR DISKUS) 250-50 MCG/ACT AEROSOL POWDER Inhale 1 puff 2 times daily. GABAPENTIN (NEURONTIN) 600 MG TABLET Take 600 mg by mouth 3 times daily. LEVOTHYROXINE (SYNTHROID, LEVOXYL) 75 MCG TABLET Take 1 tablet by mouth every morning (before breakfast). LIDOCAINE (LIDODERM) 5 % PATCH Apply 1 patch topically daily. MULTIPLE VITAMINS-MINERALS (MULTIVITAMIN ADULTS 50+ PO) Take 1 tablet by mouth daily. ONDANSETRON (ZOFRAN) 4 MG TABLET TAKE 1 TABLET BY MOUTH 3 TIMES DAILY NEEDED FOR NAUSEA & VOMITING NEEDED ONDANSETRON (ZOFRAN) 4 MG TABLET Take 1 tablet (4 mg) by mouth every 8 hours. Take 1 tablet every 8 hours as needed for nausea and/or vomiting. May take 2 tablets if needed. OXYCODONE-ACETAMINOPHEN (PERCOCET) 5-325 MG TABLET every 8 hours as needed. PANTOPRAZOLE (PROTONIX) 40 MG EC TABLET Take 1 tablet (40 mg) by mouth daily. PSYLLIUM (METAMUCIL) 58.6 % POWDER Take 5.12 g (3 g of fiber) by mouth 2 times daily. SERTRALINE (ZOLOFT) 50 MG TABLET Take 50 mg by mouth daily. TADALAFIL (CIALIS) 5 MG TABLET Take 1 tablet (5 mg) by mouth daily. TAMSULOSIN (FLOMAX) 0.4 MG 24 HR CAPSULE TAKE 1 CAPSULE BY MOUTH ONCE DAILY TIZANIDINE (ZANAFLEX) 2 MG TABLET Take 2 mg by mouth 2 times daily as needed. TRAMADOL (ULTRAM) 50 MG TABLET every 8 hours. VENTOLIN HFA 108 (90 BASE) MCG/ACT INHALER Inhale 2 puffs every 6 hours as needed. ALLERGIES Iodinated contrast media and Nsaids FAMILY HISTORY Family History Problem Relation Name Age of Onset Cancer Mother Kerri hicks Osteoarthritis Mother Kerri hicks Lung cancer Mother Kerri hicks smoker Coronary artery disease Other SOCIAL HISTORY Social History Socioeconomic History Marital status: Tobacco Use Smoking status: Never Smokeless tobacco: Never Vaping Use Vaping status: Never Used Substance and Sexual Activity Alcohol use: Never Drug use: Never Sexual activity: Yes Partners: Female control/protection: Surgical, None Social Drivers of Health Food Insecurity: No Food Insecurity (08/18/2023) Hunger Vital Sign Worried About Running Out of Food in the Last Year: Never true Ran Out of Food in the Last Year: Never true Transportation Needs: No Transportation Needs (10/01/2023) PRAPARE - Transportation Lack of Transportation (Medical): No Lack of Transportation (Non-Medical): No Intimate Partner Violence: Not At Risk (10/01/2023) Humiliation, Afraid, Rape, and Kick questionnaire Fear of Current or Ex-Partner: No Emotionally Abused: No Physically Abused: No Sexually Abused: No Housing Stability: Low Risk (10/01/2023) Housing Stability Vital Sign Unable to Pay for Housing in the Last Year: No Number of Times Moved in the Last Year: 1 Homeless in the Last Year: No SCREENINGS PHYSICAL EXAM ED Triage Vitals [06/23/24 1015] Temp Heart Rate Resp BP 36.8 C (98.3 F) 98 17 110/65 SpO2 Temp Source Heart Rate Source Patient Position 98 % Oral Monitor -- BP Location FiO2 (%) -- -- General: A&O x 3, well appearing, no acute distress Head: NC/AT Eyes: Atraumatic, EOMI, clear conjunctival, PERRLA Nose: Atraumatic, no skin changes Throat: Moist mucus membranes, uvula midline, oropharynx clear Neck: atraumatic, Supple, no lymphadenopathy, no stiffness or restricted ROM Heart: Normal rate and regular rhythm, no m/r/g Lungs: CTA bilaterally, no crackles or wheezes, no respiratory distress Abd: Soft, nontender, nondistended, no guarding Back: atraumatic, no step-off, No midline vertebral ttp, no CVA tenderness bilaterally Extremity: Left lower extremity with wound repair, sutures intact, no purulent drainage, however surrounding erythema, swelling, tender to touch, warm to touch Neurologic: Non focal exam, moving all extremities spontaneously, normal gait Skin: warm, dry, no obvious rashes DIAGNOSTIC RESULTS Procedures/EKG: EKG was reviewed by myself. Physician EKG interpretation can be found below in [facility] RADIOLOGY (Per Emergency Physician): As per below in [facility] section Interpretation per the Radiologist below, if available at the time of this note: CT abdomen pelvis wo IV contrast Final Result 1. No acute fracture is identified. 2. Small loculated fluid collections in the subcutaneous tissues adjacent to the right hip. These most likely reflect postoperative seromas. Correlate clinically to fully exclude an abscess or hematoma. 3. Mild splenomegaly. 4. Indeterminate 10 mm left renal cortical lesion. Recommend further evaluation with nonemergent renal ultrasound. If lesion is not adequately characterized with ultrasound, recommend further evaluation with multiphasic renal mass protocol MRI. 5. Mildly prominent left external iliac and inguinal lymph nodes. Report Dictated on Electronically Signed By: Mago Falcon MD Electronically Signed Date/Time: 06/23/2024 12:42 PM EDT XR tibia fibula 2 views left Final Result 1. No acute osseous abnormality. 2. Diffuse soft tissue swelling. No radiopaque foreign body. Report Dictated on Electronically Signed By: Mago Falcon MD Electronically Signed Date/Time: 06/23/2024 11:28 AM EDT Vascular US lower extremity venous duplex left (Results Pending) ED BEDSIDE ULTRASOUND: Performed by ED Physician - none LABS: Labs Reviewed CBC WITH AUTO DIFFERENTIAL - Abnormal Result Value Auto WBC 8.5 RBC 4.06 (*) Hemoglobin 11.3 (*) Hematocrit 35.4 (*) MCV 87.2 MCH 27.8 MCHC 31.9 RDW 13.2 Platelets 93 (*) MPV 9.1 IPF 1 BASIC METABOLIC PANEL - Abnormal SODIUM 134 (*) POTASSIUM 3.8 CHLORIDE 103 CARBON DIOXIDE 21 (*) UREA NITROGEN 13 CREATININE 1.24 GLUCOSE 106 (*) CALCIUM 8.8 ANION GAP 10 eGFR 66.6 C-REACTIVE PROTEIN - Abnormal C REACTIVE PROTEIN 115.7 (*) SEDIMENTATION RATE, AUTOMATED - Abnormal Sed Rate 37 (*) MANUAL DIFFERENTIAL (CELLAVISION) - Abnormal RBC Morphology abnormal Poikilocytes Slight (*) Hypochromia Slight (*) Polychromasia Slight (*) Ovalocytes Slight (*) Dacryocytes Slight (*) Stomatocytes Slight (*) Hypersegmented Neutrophils Present (*) Neutrophils % 90 (*) Bands % 1 (*) Lymphocytes % 4 (*) Atypical Lymphocytes % 2 (*) Monocytes % 3 (*) Absolute Neutrophil Count 7.7 (*) Bands Absolute 0.1 (*) Lymphocytes Absolute 0.3 (*) Atypical Lymphs Absolute 0.2 (*) Monocytes Absolute 0.3 Neutrophils Manual 90 Lymphocytes Manual 4 Monocytes Manual 3 Eosinophils Manual Basophils Manual Bands Manual 1 Metamyelocytes Manual Myelocytes Manual Promyelocytes Manual Blasts Manual Atypical Lymphocytes Manual 2 Unclassified Cells, Manual Manual nRBC per 100 Cells 1 LACTIC ACID WITH REFLEX - Normal LACTIC ACID 1.4 All other labs were within normal range or not returned as of this dictation. EMERGENCY DEPARTMENT COURSE and DIFFERENTIAL DIAGNOSIS/MDM: Vitals: Vitals: 06/23/24 1015 06/23/24 1130 06/23/24 1221 06/23/24 1230 BP: 110/65 136/83 (!) 143/64 128/66 Pulse: 98 98 98 (!) 114 Resp: Temp: 36.8 C (98.3 F) TempSrc: Oral SpO2: 98% 94% 99% 97% Weight: 120 kg (265 lb) Height: 1.88 m (6' 2) Diagnoses as of 06/23/24 1608 Pain and swelling of left lower leg Medications vancomycin in NS (Vancocin) IVPB 2,000 mg (has no administration in time range) morphine injection 4 mg (4 mg IntraVENous Given 06/23/24 1121) ondansetron (Zofran) injection 4 mg (4 mg IntraVENous Given 06/23/24 1120) sodium chloride 0.9 % bolus 500 mL (500 mL IntraVENous New Bag 06/23/24 1232) piperacillin-tazobactam (Zosyn) 4,500 mg in sodium chloride 0.9 % 100 mL IVPB Mini-Bag Plus (0 mg IntraVENous Stopped 06/23/24 1531) morphine injection 4 mg (4 mg IntraVENous Given 06/23/24 1451) ondansetron (Zofran) injection 4 mg (4 mg IntraVENous Given 06/23/24 1459) Patient with hx of tia presents to the ED with a chief complaint of LLE pain. On exam, vitals tachycardic. LLE with sutures in place, surrounding erythema. Otherwise per above (Differential diagnosis) With consideration of age, sex/gender, risk factors, to evaluate patient for high risk causes of morbidity and mortality such as, but not limited to, Acute infectious process (cellulitis) vs allergic reaction vs other. Low concerns for DVT or osteomyelitis at this time. Today we will obtain labs and imaging We will also provide medical/symptomatic management with pain control. Diagnostic tests considered but not performed: n/a Independently reviewed external documents including previous FM notes. Per chart review, patient has been followed for or diagnosed with TIA, arthritis in the past. Patient's condition and/or care was impacted by these chronic conditions. Will consider these factors in evaluation and management for today's care. Discussed plan with patient who agrees with current plan. REVAL: End of visit medical decision making Patient was reassessed. Resting comfortably. No acute distress. Independently reviewed and interpreted the lab results which demonstrated the following: No leukocytosis however left shift noted, anemia 11.3, electrolytes within normal limits, CRP elevated 115, lactic acid negative, ESR 37 Independently reviewed the reports of other imaging which demonstrated the following: No acute osseous abnormality. 2. Diffuse soft tissue swelling. No radiopaque foreign body. 1. No acute fracture is identified. 2. Small loculated fluid collections in the subcutaneous tissues adjacent to the right hip. These most likely reflect postoperative seromas. Correlate clinically to fully exclude an abscess or hematoma. 3. Mild splenomegaly. 4. Indeterminate 10 mm left renal cortical lesion. Recommend further evaluation with nonemergent renal ultrasound. If lesion is not adequately characterized with ultrasound, recommend further evaluation with multiphasic renal mass protocol MRI. 5. Mildly prominent left external iliac and inguinal lymph nodes. Ultrasound with no DVT of the left lower extremity Response to medical management provided in the ED: Today's workup demonstrated concerns of worsening cellulitis with possible inguinal lymph node involvement. After thorough discussion with patient, patient has chronic antalgic gait due to right hip issues. Now no longer able to bear weight on left lower extremity. Patient would benefit from inpatient antibiotics until improvement of symptoms (Consults) Discussed care with: Discussed case with instructional design consultant, admitting team. They agree with current work up and management. They will evaluate and provide further recommendations, please refer to their note for detailed explanation. They agree to admit the patient for further workup and management. Discussed all results with patient and/or family members. They verbalize understanding. Offered admission for further management. Discussed risks, benefits and alternatives for further management in the hospital. Due to high risk of morbidity and mortality of the stated findings and results, patient will be admitted for further management and care. Patient is agreeable to the plan. Discussed patient information, presentation and workup with admitting team. Admitting team is agreeable to current workup and evaluation. They will admit the patient and provide further care. Pending results to be followed by primary admitting team. Patient will need med level of care and not appropriate for lower acuity location of care due to risk of morbidity and mortality Patient's condition and/or care was impacted by LLE wound Patient's condition and/or care was significantly impacted by social determinants of health including: na CRITICAL CARE TIME none CONSULTS: None PROCEDURES: Unless otherwise noted below, none Procedures Patients symptoms are consistent with sepsis, severe sepsis, or septic shock (If yes use .sepsiscoremeasure): FINAL IMPRESSION 1. Pain and swelling of left lower leg DISPOSITION Admit 06/23/2024 03:39:34 PM PATIENT REFERRED TO: No follow-up provider specified. DISCHARGE MEDICATIONS: New Prescriptions No medications on file (Comment: Please note this report has been produced using speech recognition software and may contain errors related to that system including errors in grammar, punctuation, and spelling, as well as words and phrases that may be inappropriate. If there are any questions or concerns please feel free to contact the dictating provider for clarification.) Asher Rodriguez DO (electronically signed) Emergency Medicine Provider Asher Rodriguez DO 06/23/24 1608 [facility] 06-18-2024 Hospital Discharg e instructions Shelbi Gandara PA-C - 06/18/2024 7:33 PM EST Today you had a laceration to your left leg. We have placed 9 sutures. They need to be removed in 10-14 days. You may do this in your doctor s office, local urgent care, or here in the Emergency department if necessary. You may have your sutures removed in: 10-14 days Please watch for signs of infection including redness, warmth, discharge, fevers and return to the ER immediately if you experience these symptoms. Please use Aquaphor, Vaseline or petroleum jelly on the area to help with wound healing and decrease scarring. You may apply this 2-3 times daily and cover with a bandage. The following attachments cannot be sent through Care Everywhere.Laceration Repair With Stitches ED (Honduran)Wound Care ED (Honduran)documented in this encounter [facility] 06-18-2024 Emergency department Note Associated Order(s): Laceration Repair Images from the original note were not included. EMERGENCY DEPARTMENT ENCOUNTER Pt Name: Sophie Hicks Birthdate 1965 Date of evaluation: 06/18/2024 ED Provider: Shelbi Gandara PA-C CHIEF COMPLAINT Chief Complaint Patient presents with Fall Laceration HISTORY OF PRESENT ILLNESS (Location/Symptom, Timing/Onset, Context/Setting, Quality, Duration, Modifying Factors, Severity) Note limiting factors. I wore appropriate PPE for the entirety of this encounter. HPI Sophie Hicks is a 58 y.o. male who presents to the emergency department for evaluation of a left lower extremity laceration. Patient reports that he was trying to get into a lifted truck when he lost his footing hitting his left anterior oropeza on the step rail. Patient reports having pain of that area. Denies any numbness, tingling, loss of sensation of the lower extremities. Currently on Eliquis. Unsure when last tetanus was updated. Nursing Notes were reviewed. Limitations to history: None Outside historians: None REVIEW OF SYSTEMS Review of Systems 6 systems reviewed, positives and pertinent negatives as per HPI. All other systems were reviewed and are negative. 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 Back pain Benign essential HTN 01/29/2015 Blood circulation, collateral CAD (coronary artery disease) mild - dx on cath - neg stress Cerebral artery occlusion with cerebral infarction (HCC) patient states not ever confirmed as stoke Chronic kidney disease COPD (chronic obstructive pulmonary disease) (HCC) COVID-19 05/03 COVID-19 vaccine series completed 09/25/2020 Moderna COVID-19 vaccine series completed 12/04/2020 BOOSTER CS (cervical spondylosis) 12/25/2004 CERVICAL SPINE DJD Difficulty sleeping Dizziness GERD (gastroesophageal reflux disease) History of colonic polyps 06/21/2013 repeat 2019 Hyperlipidemia Hypothyroidism Insomnia 08/15/2014 Joint pain, hip Joint pain, knee Memory difficulties Motion sickness 05/24/2024 Muscle weakness Peripheral polyneuropathy 09/30/2020 Rheumatoid arthritis (HCC) Shortness of breath at rest Sleep apnea resolved with weight loss Snoring SOBOE (shortness of breath on exertion) Type 2 diabetes mellitus (HCC) 03/19/2021 resolved after weight loss SURGICAL HISTORY Past Surgical History: Procedure Laterality Date APPENDECTOMY BARIATRIC SURGERY 12/03/2021 Dr. Trevino CARDIAC CATHETERIZATION 12/17/2013 NORMAL CORONARY ARTERIES AND LVEF. COLONOSCOPY COLONOSCOPY 2020 CYSTOSCOPY 10/26/2020 CYSTOSCOPY 11/19/2020 CYSTOSCOPY 09/16/2023 EGD (HISTORICAL) 03/02/2023 NECK SURGERY Posterior cervical fusion PANNICULECTOMY (HISTORICAL) 09/23/2023 ROTATOR CUFF REPAIR Bilateral 2023 both surgeries UPPER GASTROINTESTINAL ENDOSCOPY 01/24/2021 Dr. Cabello CURRENT MEDICATIONS Discharge Medication List as of 06/18/2024 7:33 PM CONTINUE these medications which have NOT CHANGED Details acetaminophen (Tylenol 8 Hour) 650 MG ER tablet Take 1 tablet (650 mg) by mouth every 8 hours as needed for mild pain (1-3) or moderate pain (4-6) (take as needed for pain). Do not crush, chew, or split., Starting Thu05/27/2024, Until 06/26/2024 at 2359, Normal ALPRAZolam (Xanax) 1 MG tablet Take 1 mg by mouth Nightly., Historical Med !! aspirin (ASPIR) 81 MG EC tablet Take 1 tablet (81 mg) by mouth 2 times daily. Take 2 times a day for 30 days. This is for blood clot prevention., Starting Thu05/27/2024, Until 06/26/2024, Normal !! aspirin 81 MG EC tablet Take 81 mg by mouth daily., Starting Thu09/25/2020, Historical Med atorvastatin (Lipitor) 80 MG tablet Take 80 mg by mouth Nightly., Starting Thu03/02/2022, Historical Med baclofen (Lioresal) 10 MG tablet Take 10 mg by mouth 2 times daily., Starting Thu03/19/2022, Historical Med buPROPion XL (Wellbutrin XL) 150 MG 24 hr tablet Take 150 mg by mouth daily., Starting Thu03/10/2022, Historical Med busPIRone (Buspar) 10 MG tablet Take 10 mg by mouth 2 times daily., Starting Thu01/26/2023, Historical Med dicyclomine (Bentyl) 10 MG capsule Take 10 mg by mouth in the morning and 10 mg at noon and 10 mg in the evening and 10 mg before bedtime., Starting Monica 12/19/2021, Historical Med docusate sodium (Colace) 100 MG capsule Take 1 capsule (100 mg) by mouth 2 times daily. Take 2 times a day as needed for constipation., Starting Thu05/27/2024, Until Thu06/26/2024, Normal finasteride (Proscar) 5 MG tablet Take 1 tablet (5 mg) by mouth daily. Do not crush, chew, or split., Starting Thu08/27/2023, Until Thu08/26/2024, Normal fluticasone (Flonase) 50 MCG/ACT nasal spray Administer 1 spray into each nostril daily., Starting Thu03/12/2021, Historical Med Fluticasone-Salmeterol (Advair Diskus) 250-50 MCG/ACT aerosol powder Inhale 1 puff 2 times daily., Historical Med gabapentin (Neurontin) 600 MG tablet Take 600 mg by mouth 3 times daily., Starting Thu11/25/2023, Historical Med levothyroxine (Synthroid, Levoxyl) 75 MCG tablet Take 1 tablet by mouth every morning (before breakfast)., Starting Thu03/19/2022, Historical Med lidocaine (Lidoderm) 5 % patch Apply 1 patch topically daily., Starting Thu05/11/2024, Historical Med Multiple Vitamins-Minerals (MULTIVITAMIN ADULTS 50+ PO) Take 1 tablet by mouth daily., Historical Med !! ondansetron (Zofran) 4 MG tablet TAKE 1 TABLET BY MOUTH 3 TIMES DAILY NEEDED FOR NAUSEA & VOMITING NEEDED, Historical Med !! ondansetron (Zofran) 4 MG tablet Take 1 tablet (4 mg) by mouth every 8 hours. Take 1 tablet every 8 hours as needed for nausea and/or vomiting. May take 2 tablets if needed., Starting Thu05/27/2024, Until Thu06/26/2024, Normal oxyCODONE-acetaminophen (Percocet) 5-325 MG tablet every 8 hours as needed., Starting Thu09/30/2023, Historical Med pantoprazole (ProtoNix) 40 MG EC tablet Take 1 tablet (40 mg) by mouth daily., Starting Thu03/25/2024, Normal psyllium (Metamucil) 58.6 % powder Take 5.12 g (3 g of fiber) by mouth 2 times daily., Starting Thu10/01/2023, Until Thu09/30/2024, Normal sertraline (Zoloft) 50 MG tablet Take 50 mg by mouth daily., Starting Thu01/23/2023, Historical Med tadalafil (Cialis) 5 MG tablet Take 1 tablet (5 mg) by mouth daily., Starting Thu12/10/2023, Until Thu12/09/2024, Normal tamsulosin (Flomax) 0.4 MG 24 hr capsule TAKE 1 CAPSULE BY MOUTH ONCE DAILY, Starting Thu05/26/2024, Normal tiZANidine (Zanaflex) 2 MG tablet Take 2 mg by mouth 2 times daily as needed., Starting Thu08/24/2023, Historical Med traMADol (Ultram) 50 MG tablet every 8 hours., Starting Thu09/30/2023, Historical Med Ventolin HFA 108 (90 Base) MCG/ACT inhaler Inhale 2 puffs every 6 hours as needed., Starting Thu03/19/2022, Historical Med !! - Potential duplicate medications found. Please discuss with provider. ALLERGIES Iodinated contrast media and Nsaids FAMILY HISTORY Family History Problem Relation Name Age of Onset Cancer Mother Kerri hicks Osteoarthritis Mother Kerri hicks Lung cancer Mother Kerri hicks smoker Coronary artery disease Other SOCIAL HISTORY Social History Socioeconomic History Marital status: Tobacco Use Smoking status: Never Smokeless tobacco: Never Vaping Use Vaping status: Never Used Substance and Sexual Activity Alcohol use: Never Drug use: Never Sexual activity: Yes Partners: Female control/protection: Surgical, None Social Drivers of Health Food Insecurity: No Food Insecurity (08/18/2023) Hunger Vital Sign Worried About Running Out of Food in the Last Year: Never true Ran Out of Food in the Last Year: Never true Transportation Needs: No Transportation Needs (10/01/2023) PRAPARE - Transportation Lack of Transportation (Medical): No Lack of Transportation (Non-Medical): No Intimate Partner Violence: Not At Risk (10/01/2023) Humiliation, Afraid, Rape, and Kick questionnaire Fear of Current or Ex-Partner: No Emotionally Abused: No Physically Abused: No Sexually Abused: No Housing Stability: Low Risk (10/01/2023) Housing Stability Vital Sign Unable to Pay for Housing in the Last Year: No Number of Times Moved in the Last Year: 1 Homeless in the Last Year: No SCREENINGS PHYSICAL EXAM ED Triage Vitals [06/18/24 1833] Temp Heart Rate Resp BP 36.7 C (98.1 F) 90 18 130/82 SpO2 Temp Source Heart Rate Source Patient Position 98 % Temporal Monitor Sitting BP Location FiO2 (%) Left arm -- Physical Exam Vitals and nursing note reviewed. Constitutional: General: He is not in acute distress. Appearance: He is well-developed. Comments: 58-year-old male who does not appear to be in acute distress or discomfort. HENT: Head: Normocephalic and atraumatic. Eyes: Conjunctiva/sclera: Conjunctivae normal. Cardiovascular: Rate and Rhythm: Normal rate and regular rhythm. Heart sounds: No murmur heard. Pulmonary: Effort: Pulmonary effort is normal. No respiratory distress. Breath sounds: Normal breath sounds. Abdominal: Palpations: Abdomen is soft. Tenderness: There is no abdominal tenderness. Musculoskeletal: Cervical back: Neck supple. Comments: There is a 7 cm laceration noted to the left anterior oropeza. Mild oozing of blood noted. Gaping. No foreign body noted. See photo below. There is no tenderness to palpation of the left lower extremity. DP PT pulses 2+. Sensation intact. Patient bears weight and ambulates appropriately Skin: General: Skin is warm and dry. Capillary Refill: Capillary refill takes less than 2 seconds. Neurological: Mental Status: He is alert. Psychiatric: Mood and Affect: Mood normal. DIAGNOSTIC RESULTS RADIOLOGY (Per Emergency Physician): Interpretation per the Radiologist below, if available at the time of this note: No orders to display LABS: Labs Reviewed - No data to display All other labs were within normal range or not returned as of this dictation. EMERGENCY DEPARTMENT COURSE and DIFFERENTIAL DIAGNOSIS/MDM: Vitals: Vitals: 06/18/24 1833 BP: 130/82 BP Location: Left arm Patient Position: Sitting Pulse: 90 Resp: 18 Temp: 36.7 C (98.1 F) TempSrc: Temporal SpO2: 98% Medications lidocaine-EPINEPHrine (Xylocaine W/EPI) 1 %-1:908087 injection 10 mL (10 mL Infiltration Given by Other 06/18/241844) Tdap (BoostRIX) vaccine 0.5 mL (0.5 mL IntraMUSCular Given 06/18/241845) HYDROcodone-acetaminophen ([place]) 5-325 MG per tablet 1 tablet (1 tablet Oral Given 06/18/24 185) I independently evaluated the patient with supervising attending physician available as needed for collaboration. In brief, Sophie Hicks is a 58 y.o. male who presented to the emergency department for evaluation of left lower extremity laceration. See HPI for further details. Nursing notes and medical records reviewed, no recent visits or studies correlating to patient's presenting symptoms. Differential considerations included laceration. Initial medical management includes tetanus updated in ED. [place] given for pain relief. Initial workup includes none. Other workup considerations included x-ray imaging to evaluate for underlying fracture although patient ambulates appropriately do not feel as if there is underlying fracture given mechanism of injury Chronic conditions contributing to patients presentation include type 2 diabetes mellitus, atrial fibrillation, COPD. Patient states that he is currently on Eliquis although per chart review unsure if this is accurate. Social determinants to care: None noted. Laceration repaired in ED. See procedure note. Diagnosis laceration of left lower leg. Disposition discharge home stable. Laceration repaired without complication. Educated on good wound care and signs of infection. Educated to have sutures removed in 10 to 14 days. Discussed ED return precautions, recommended consulting their primary doctor or returning to the ED if there are any new or worsening of symptoms, particularly redness, swelling, fever, chills. Follow-up PCP for suture removal. Follow-up in 10 to 14 days for suture removal. PROCEDURES: Unless otherwise noted below, none Laceration Repair Performed by: Shelbi Gandara PA-C Authorized by: Shelbi Gandara PA-C Consent: Consent obtained: Verbal Consent given by: Patient Risks discussed: Infection, pain, retained foreign body, tendon damage, poor cosmetic result, need for additional repair, nerve damage, poor wound healing and vascular damage [place] protocol: Patient identity confirmed: Verbally with patient Anesthesia: Anesthesia method: Local infiltration Local anesthetic: Lidocaine 1% WITH epi Laceration details: Location: Leg Leg location: L lower leg Length (cm): 7 Depth (mm): 1 Exploration: Imaging outcome: foreign body not noted Wound exploration: wound explored through full range of motion Contaminated: no Treatment: Area cleansed with: Saline and Shur-Clens Amount of cleaning: Standard Skin repair: Repair method: Sutures Suture size: 3-0 Wound skin closure material used: Ethilon. Suture technique: Simple interrupted Number of sutures: 9 Approximation: Approximation: Close Repair type: Repair type: Simple Post-procedure details: Dressing: Non-adherent dressing Procedure completion: Tolerated FINAL IMPRESSION 1. Laceration of left lower leg, initial encounter DISPOSITION Discharge 06/18/2024 07:32:36 PM PATIENT REFERRED TO: Wiliam Fernandez MD [address] [place] [id number] For suture removal DISCHARGE MEDICATIONS: Discharge Medication List as of 06/18/2024 7:33 PM (Comment: Please note this report has been produced using speech recognition software and may contain errors related to that system including errors in grammar, punctuation, and spelling, as well as words and phrases that may be inappropriate. If there are any questions or concerns please feel free to contact the dictating provider for clarification.) Shelbi Gandara PA-C (electronically signed) Emergency Medicine Provider Shelbi Gandara PA-C 06/18/242056 Pt fell getting into a truck. Pt hit oropeza off of the thing you step on to get in. Pt has wrapped his leg and upon taking the dressing off he has a 3 in length laceration. Pt's laceration is still currently bleeding. Pt denies hitting his head. Pt is on blood thinners. Pt doesn't remember the last time he's had a TDAP. documented in this encounter [facility] 06-18-2024 Emergency department Triage note Pt fell getting into a truck. Pt hit oropeza off of the thing you step on to get in. Pt has wrapped his leg and upon taking the dressing off he has a 3 in length laceration. Pt's laceration is still currently bleeding. Pt denies hitting his head. Pt is on blood thinners. Pt doesn't remember the last time he's had a TDAP. [facility] 06-18-2024 Physician Emergency department Note Associated Order(s): Laceration Repair Images from the original note were not included. EMERGENCY DEPARTMENT ENCOUNTER Pt Name: Sophie Hicks Birthdate 1965 Date of evaluation: 06/18/2024 ED Provider: Shelbi Gandara PA-C CHIEF COMPLAINT Chief Complaint Patient presents with Fall Laceration HISTORY OF PRESENT ILLNESS (Location/Symptom, Timing/Onset, Context/Setting, Quality, Duration, Modifying Factors, Severity) Note limiting factors. I wore appropriate PPE for the entirety of this encounter. HPI Sophie Hicks is a 58 y.o. male who presents to the emergency department for evaluation of a left lower extremity laceration. Patient reports that he was trying to get into a lifted truck when he lost his footing hitting his left anterior oropeza on the step rail. Patient reports having pain of that area. Denies any numbness, tingling, loss of sensation of the lower extremities. Currently on Eliquis. Unsure when last tetanus was updated. Nursing Notes were reviewed. Limitations to history: None Outside historians: None REVIEW OF SYSTEMS Review of Systems 6 systems reviewed, positives and pertinent negatives as per HPI. All other systems were reviewed and are negative. 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 Back pain Benign essential HTN 01/29/2015 Blood circulation, collateral CAD (coronary artery disease) mild - dx on cath - neg stress Cerebral artery occlusion with cerebral infarction (HCC) patient states not ever confirmed as stoke Chronic kidney disease COPD (chronic obstructive pulmonary disease) (HCC) COVID-19 05/03 COVID-19 vaccine series completed 09/25/2020 Moderna COVID-19 vaccine series completed 12/04/2020 BOOSTER CS (cervical spondylosis) 12/25/2004 CERVICAL SPINE DJD Difficulty sleeping Dizziness GERD (gastroesophageal reflux disease) History of colonic polyps 06/21/2013 repeat 2019 Hyperlipidemia Hypothyroidism Insomnia 08/15/2014 Joint pain, hip Joint pain, knee Memory difficulties Motion sickness 05/24/2024 Muscle weakness Peripheral polyneuropathy 09/30/2020 Rheumatoid arthritis (HCC) Shortness of breath at rest Sleep apnea resolved with weight loss Snoring SOBOE (shortness of breath on exertion) Type 2 diabetes mellitus (HCC) 03/19/2021 resolved after weight loss SURGICAL HISTORY Past Surgical History: Procedure Laterality Date APPENDECTOMY BARIATRIC SURGERY 12/03/2021 Dr. Trevino CARDIAC CATHETERIZATION 12/17/2013 NORMAL CORONARY ARTERIES AND LVEF. COLONOSCOPY COLONOSCOPY 2020 CYSTOSCOPY 10/26/2020 CYSTOSCOPY 11/19/2020 CYSTOSCOPY 09/16/2023 EGD (HISTORICAL) 03/02/2023 NECK SURGERY Posterior cervical fusion PANNICULECTOMY (HISTORICAL) 09/23/2023 ROTATOR CUFF REPAIR Bilateral 2023 both surgeries UPPER GASTROINTESTINAL ENDOSCOPY 01/24/2021 Dr. Cabello CURRENT MEDICATIONS Discharge Medication List as of 06/18/2024 7:33 PM CONTINUE these medications which have NOT CHANGED Details acetaminophen (Tylenol 8 Hour) 650 MG ER tablet Take 1 tablet (650 mg) by mouth every 8 hours as needed for mild pain (1-3) or moderate pain (4-6) (take as needed for pain). Do not crush, chew, or split., Starting Thu05/27/2024, Until 06/26/2024 at 2359, Normal ALPRAZolam (Xanax) 1 MG tablet Take 1 mg by mouth Nightly., Historical Med !! aspirin (ASPIR) 81 MG EC tablet Take 1 tablet (81 mg) by mouth 2 times daily. Take 2 times a day for 30 days. This is for blood clot prevention., Starting Thu05/27/2024, Until 06/26/2024, Normal !! aspirin 81 MG EC tablet Take 81 mg by mouth daily., Starting Thu09/25/2020, Historical Med atorvastatin (Lipitor) 80 MG tablet Take 80 mg by mouth Nightly., Starting Thu03/02/2022, Historical Med baclofen (Lioresal) 10 MG tablet Take 10 mg by mouth 2 times daily., Starting Thu03/19/2022, Historical Med buPROPion XL (Wellbutrin XL) 150 MG 24 hr tablet Take 150 mg by mouth daily., Starting 03/10/2022, Historical Med busPIRone (Buspar) 10 MG tablet Take 10 mg by mouth 2 times daily., Starting Thu01/26/2023, Historical Med dicyclomine (Bentyl) 10 MG capsule Take 10 mg by mouth in the morning and 10 mg at noon and 10 mg in the evening and 10 mg before bedtime., Starting Thu12/19/2021, Historical Med docusate sodium (Colace) 100 MG capsule Take 1 capsule (100 mg) by mouth 2 times daily. Take 2 times a day as needed for constipation., Starting Thu05/27/2024, Until Thu06/26/2024, Normal finasteride (Proscar) 5 MG tablet Take 1 tablet (5 mg) by mouth daily. Do not crush, chew, or split., Starting Thu08/27/2023, Until Thu08/26/2024, Normal fluticasone (Flonase) 50 MCG/ACT nasal spray Administer 1 spray into each nostril daily., Starting Thu03/12/2021, Historical Med Fluticasone-Salmeterol (Advair Diskus) 250-50 MCG/ACT aerosol powder Inhale 1 puff 2 times daily., Historical Med gabapentin (Neurontin) 600 MG tablet Take 600 mg by mouth 3 times daily., Starting Thu11/25/2023, Historical Med levothyroxine (Synthroid, Levoxyl) 75 MCG tablet Take 1 tablet by mouth every morning (before breakfast)., Starting Thu03/19/2022, Historical Med lidocaine (Lidoderm) 5 % patch Apply 1 patch topically daily., Starting Thu05/11/2024, Historical Med Multiple Vitamins-Minerals (MULTIVITAMIN ADULTS 50+ PO) Take 1 tablet by mouth daily., Historical Med !! ondansetron (Zofran) 4 MG tablet TAKE 1 TABLET BY MOUTH 3 TIMES DAILY NEEDED FOR NAUSEA & VOMITING NEEDED, Historical Med !! ondansetron (Zofran) 4 MG tablet Take 1 tablet (4 mg) by mouth every 8 hours. Take 1 tablet every 8 hours as needed for nausea and/or vomiting. May take 2 tablets if needed., Starting Thu05/27/2024, Until Thu06/26/2024, Normal oxyCODONE-acetaminophen (Percocet) 5-325 MG tablet every 8 hours as needed., Starting Thu09/30/2023, Historical Med pantoprazole (ProtoNix) 40 MG EC tablet Take 1 tablet (40 mg) by mouth daily., Starting Thu03/25/2024, Normal psyllium (Metamucil) 58.6 % powder Take 5.12 g (3 g of fiber) by mouth 2 times daily., Starting Thu10/01/2023, Until Thu09/30/2024, Normal sertraline (Zoloft) 50 MG tablet Take 50 mg by mouth daily., Starting Thu01/23/2023, Historical Med tadalafil (Cialis) 5 MG tablet Take 1 tablet (5 mg) by mouth daily., Starting Thu12/10/2023, Until Thu12/09/2024, Normal tamsulosin (Flomax) 0.4 MG 24 hr capsule TAKE 1 CAPSULE BY MOUTH ONCE DAILY, Starting Thu05/26/2024, Normal tiZANidine (Zanaflex) 2 MG tablet Take 2 mg by mouth 2 times daily as needed., Starting Thu08/24/2023, Historical Med traMADol (Ultram) 50 MG tablet every 8 hours., Starting Thu09/30/2023, Historical Med Ventolin HFA 108 (90 Base) MCG/ACT inhaler Inhale 2 puffs every 6 hours as needed., Starting Thu03/19/2022, Historical Med !! - Potential duplicate medications found. Please discuss with provider. ALLERGIES Iodinated contrast media and Nsaids FAMILY HISTORY Family History Problem Relation Name Age of Onset Cancer Mother Kerri hicks Osteoarthritis Mother Kerri hicks Lung cancer Mother Kerri hicks smoker Coronary artery disease Other SOCIAL HISTORY Social History Socioeconomic History Marital status: Tobacco Use Smoking status: Never Smokeless tobacco: Never Vaping Use Vaping status: Never Used Substance and Sexual Activity Alcohol use: Never Drug use: Never Sexual activity: Yes Partners: Female control/protection: Surgical, None Social Drivers of Health Food Insecurity: No Food Insecurity (08/18/2023) Hunger Vital Sign Worried About Running Out of Food in the Last Year: Never true Ran Out of Food in the Last Year: Never true Transportation Needs: No Transportation Needs (10/01/2023) PRAPARE - Transportation Lack of Transportation (Medical): No Lack of Transportation (Non-Medical): No Intimate Partner Violence: Not At Risk (10/01/2023) Humiliation, Afraid, Rape, and Kick questionnaire Fear of Current or Ex-Partner: No Emotionally Abused: No Physically Abused: No Sexually Abused: No Housing Stability: Low Risk (10/01/2023) Housing Stability Vital Sign Unable to Pay for Housing in the Last Year: No Number of Times Moved in the Last Year: 1 Homeless in the Last Year: No SCREENINGS PHYSICAL EXAM ED Triage Vitals [06/18/24 1833] Temp Heart Rate Resp BP 36.7 C (98.1 F) 90 18 130/82 SpO2 Temp Source Heart Rate Source Patient Position 98 % Temporal Monitor Sitting BP Location FiO2 (%) Left arm -- Physical Exam Vitals and nursing note reviewed. Constitutional: General: He is not in acute distress. Appearance: He is well-developed. Comments: 58-year-old male who does not appear to be in acute distress or discomfort. HENT: Head: Normocephalic and atraumatic. Eyes: Conjunctiva/sclera: Conjunctivae normal. Cardiovascular: Rate and Rhythm: Normal rate and regular rhythm. Heart sounds: No murmur heard. Pulmonary: Effort: Pulmonary effort is normal. No respiratory distress. Breath sounds: Normal breath sounds. Abdominal: Palpations: Abdomen is soft. Tenderness: There is no abdominal tenderness. Musculoskeletal: Cervical back: Neck supple. Comments: There is a 7 cm laceration noted to the left anterior oropeza. Mild oozing of blood noted. Gaping. No foreign body noted. See photo below. There is no tenderness to palpation of the left lower extremity. DP PT pulses 2+. Sensation intact. Patient bears weight and ambulates appropriately Skin: General: Skin is warm and dry. Capillary Refill: Capillary refill takes less than 2 seconds. Neurological: Mental Status: He is alert. Psychiatric: Mood and Affect: Mood normal. DIAGNOSTIC RESULTS RADIOLOGY (Per Emergency Physician): Interpretation per the Radiologist below, if available at the time of this note: No orders to display LABS: Labs Reviewed - No data to display All other labs were within normal range or not returned as of this dictation. EMERGENCY DEPARTMENT COURSE and DIFFERENTIAL DIAGNOSIS/MDM: Vitals: Vitals: 06/18/24 1833 BP: 130/82 BP Location: Left arm Patient Position: Sitting Pulse: 90 Resp: 18 Temp: 36.7 C (98.1 F) TempSrc: Temporal SpO2: 98% Medications lidocaine-EPINEPHrine (Xylocaine W/EPI) 1 %-1:537161 injection 10 mL (10 mL Infiltration Given by Other 06/18/241844) Tdap (BoostRIX) vaccine 0.5 mL (0.5 mL IntraMUSCular Given 06/18/241845) HYDROcodone-acetaminophen ([place]) 5-325 MG per tablet 1 tablet (1 tablet Oral Given 06/18/241850) I independently evaluated the patient with supervising attending physician available as needed for collaboration. In brief, Sophie Hicks is a 58 y.o. male who presented to the emergency department for evaluation of left lower extremity laceration. See HPI for further details. Nursing notes and medical records reviewed, no recent visits or studies correlating to patient's presenting symptoms. Differential considerations included laceration. Initial medical management includes tetanus updated in ED. [place] given for pain relief. Initial workup includes none. Other workup considerations included x-ray imaging to evaluate for underlying fracture although patient ambulates appropriately do not feel as if there is underlying fracture given mechanism of injury Chronic conditions contributing to patients presentation include type 2 diabetes mellitus, atrial fibrillation, COPD. Patient states that he is currently on Eliquis although per chart review unsure if this is accurate. Social determinants to care: None noted. Laceration repaired in ED. See procedure note. Diagnosis laceration of left lower leg. Disposition discharge home stable. Laceration repaired without complication. Educated on good wound care and signs of infection. Educated to have sutures removed in 10 to 14 days. Discussed ED return precautions, recommended consulting their primary doctor or returning to the ED if there are any new or worsening of symptoms, particularly redness, swelling, fever, chills. Follow-up PCP for suture removal. Follow-up in 10 to 14 days for suture removal. PROCEDURES: Unless otherwise noted below, none Laceration Repair Performed by: Shelbi Gandara PA-C Authorized by: Shelbi Gandara PA-C Consent: Consent obtained: Verbal Consent given by: Patient Risks discussed: Infection, pain, retained foreign body, tendon damage, poor cosmetic result, need for additional repair, nerve damage, poor wound healing and vascular damage [place] protocol: Patient identity confirmed: Verbally with patient Anesthesia: Anesthesia method: Local infiltration Local anesthetic: Lidocaine 1% WITH epi Laceration details: Location: Leg Leg location: L lower leg Length (cm): 7 Depth (mm): 1 Exploration: Imaging outcome: foreign body not noted Wound exploration: wound explored through full range of motion Contaminated: no Treatment: Area cleansed with: Saline and Shur-Clens Amount of cleaning: Standard Skin repair: Repair method: Sutures Suture size: 3-0 Wound skin closure material used: Ethilon. Suture technique: Simple interrupted Number of sutures: 9 Approximation: Approximation: Close Repair type: Repair type: Simple Post-procedure details: Dressing: Non-adherent dressing Procedure completion: Tolerated FINAL IMPRESSION 1. Laceration of left lower leg, initial encounter DISPOSITION Discharge 06/18/2024 07:32:36 PM PATIENT REFERRED TO: [facility]ili[facility] Fernandez [facility] [address] [facility] [id number] For suture removal DISCHARGE MEDICATIONS: Discharge Medication List as of 06/18/2024 7:33 PM (Comment: Please note this report has been produced using speech recognition software and may contain errors related to that system including errors in grammar, punctuation, and spelling, as well as words and phrases that may be inappropriate. If there are any questions or concerns please feel free to contact the dictating provider for clarification.) Shelbi Gandara PA-C (electronically signed) Emergency Medicine Provider Shelbi Gandara PA-C 06/18/242056 [email or web address] 06-08-2024 Telephone encounter Note Called patient to check in at 2 week post-op louisa. Patient did not answer, left a voice message stating to call our office or reach out via [employer] with further questions or concerns. We will plan on seeing them in office at the 4 week post-op visit. [email or web address] 06-08-2024 Miscellaneous Notes Called patient to check in at 2 week post-op louisa. Patient did not answer, left a voice message stating to call our office or reach out via mychart with further questions or concerns. We will plan on seeing them in office at the 4 week post-op visit. documented in this encounter [facility] 05-28-2024 Nurse Note Reviewed home going instructions with patient. Questions asked and answered, verbalized understanding. [facility] 05-28-2024 Plan of care note Problem: Pain - Adult Goal: Verbalizes/displays adequate comfort level or baseline comfort level Outcome: Adequate for Discharge Problem: Safety - Adult Goal: Free from fall injury Outcome: Adequate for Discharge Problem: Musculoskeletal - Adult Goal: Return mobility to safest level of function Outcome: Adequate for Discharge Goal: Maintain proper alignment of affected body part Outcome: Adequate for Discharge Goal: Return ADL status to a safe level of function Outcome: Adequate for Discharge [facility] 05-28-2024 Miscellaneous Notes Problem: Pain - Adult Goal: Verbalizes/displays adequate comfort level or baseline comfort level Outcome: Adequate for Discharge Problem: Safety - Adult Goal: Free from fall injury Outcome: Adequate for Discharge Problem: Musculoskeletal - Adult Goal: Return mobility to safest level of function Outcome: Adequate for Discharge Goal: Maintain proper alignment of affected body part Outcome: Adequate for Discharge Goal: Return ADL status to a safe level of function Outcome: Adequate for Discharge Problem: Pain - Adult Goal: Verbalizes/displays adequate comfort level or baseline comfort level Outcome: Progressing Problem: Safety - Adult Goal: Free from fall injury Outcome: Progressing Problem: Musculoskeletal - Adult Goal: Return mobility to safest level of function Outcome: Progressing Patient Choice Patient Name: SOPHIE HICKS Date of : 1965 All Providers Sent Referral Name: [facility] Phone: [phone] Address: [address] [place] [id number] Start PACC Note Home Health Referral Educated patient on Home Care and services available. Patient offered choice of available HHC and agreeable to PT services with [facility]. Care Types: [facility] Isolation Precautions: No active isolations Social Determinates of Health: Tobacco Use: Low Risk (05/27/2024) Patient History Smoking Tobacco Use: Never Smokeless Tobacco Use: Never Passive Exposure: Not on file Social History Substance and Sexual Activity Alcohol Use Never Social History Substance and Sexual Activity Drug Use Never Does the patient have any financial resource strain? No Does the patient have any food insecurities? No Does the patient have any housing instabilities? No If any of the above is noted as yes - consider a DIRECTOR CARD evaluation once the patient returns home. START PATIENT REGISTRATION INFORMATION Order Information Order Signing Physician: Antony Anderson MD Service Ordered RN ?: No Service Ordered PT ?: Yes Service Ordered OT ?: No Service Ordered ST ?: No Service Ordered DIRECTOR CARD?:No Service Ordered SPECIAL EDUCATION TEACHING ASSISTANT?: No Following Physician: Antony Anderson MD Following Physician Overseeing Physician: Antony Anderson MD (Required for Residents only) Agreeable to Follow? Yes Date/Time of Call 05/27/24 1:41 PM, Spoke with: Donna Care Coordination Same Day SOC?: No Primary Care Physician: WILIAM FERNANDEZ MD Primary Care Physician Primary Care Physician Address: [address] [place] [id number] Visit Instructions: N/A Service Discharge Location Type: Home with Home Care Service Facility Name: N/A Service Floor Facility: N/A Service Room No: N/A Demographics Patient Last Name: Kurt Patient First Name: Sophie Language/Communication Barrier: n/a Service Address: [address] [place] [address] Service City: [place] Service ST: [place] Service ZIP: [address] Service Other phone numbers: Telephone Information: Emergency Contact: Extended Emergency Contact Information Primary Emergency Contact: Ellie Hicks Relation: Spouse Motor Builder Assembler needed? No Admission Information Admit Date: 05/27/2024 Patient status at discharge: Post procedure recovery Admitting Diagnosis: Unilateral primary osteoarthritis, right hip [M16.11] Arthritis of right hip [M16.11] Caregiver Information Caregiver First Name: n/a Caregiver Last Name: n/a Caregiver Relationship to Patient n/a Caregiver Phone Number: n/a Caregiver Notes: N/A [facility] [employer] HIGHTECH: HI TECH - [facility] Procedure: Right Total Hip Arthroplasty Date of procedure: 05/27/24 Precautions: Hip Precautions Surgeon: Antony Anderson MD END PATIENT REGISTRATION INFORMATION Pt Home Health goal To increase mobility and decrease pain with mobility, leading to an improvement in quality of life. COVID Status 1. Do you have any upper respiratory symptoms (cough, SOB, Fever)? No 2. Have you been exposed to anyone with COVID-19 Virus? No Answer only if pending or positive for COVID-19? 1. Agreeable to wear PPE at each visit? No 2. Is the hospital supplying them with PPE upon Discharge? No Start PACC Summary General Report/ Additional Comments Wound Care-Keep a Dry dressing on for 7-10 day, if no drainage ok to keep incision open to air. If there is drainage call the office. Discharge Date: 05/28/24 Referral Source-PACC: (Hospital/Unit): [facility] / OR/NONE End PACC Note Images from the original note were not included. [facility] MAIN OR [address] [facility] [id number] Dept: [phone] Loc: [phone] Operative Report Patient Name: Sophie Hicks Date of : 1965 Date of Surgery: 05/27/24 DATE OF SURGERY: 05/27/24 PREOPERATIVE DIAGNOSIS: RIGHT Hip Degenerative Arthritis - M16.11 POSTOPERATIVE DIAGNOSIS: Same PROCEDURE PERFORMED: Primary cementless right total hip arthroplasty, direct anterior approach with Alf robot SURGEON: Antony Andersno MD ASSISTANTS: Matheus YO, Jeremiah YO, Josephine GREGORY ANESTHESIA: Monitored Anesthesia Care , Spinal Anaesthesia, and Quadratus Lumborum Block Post-op INTRAVENOUS FLUIDS: 1,500 mL ESTIMATED BLOOD LOSS: 300 mL DRAIN: None. COMPLICATIONS: Patient tolerated the procedure well without anesthetic or surgical/operative complications. COMPONENTS: Surprise Trident 2 acetabular component size 56 mm, 36 neutral highly crosslinked polyethylene acetabular liner, a 36 -2.5 Biolox delta ceramic femoral head, Surprise Insignia femoral component size 6 high offset, two divergent acetabular screws INTRAOPERATIVE FINDINGS: The intra-operative finding confirmed the clinical and radiographic finding of end-stage osteoarthritis characterized by complete bone loss on the femoral head and acetabulum with presence of osteophytes. TISSUE REMOVED OR ALTERED: Femoral head and acetabular reamings removed via standard resection. COMORBIDITIES: No date: Abdominal pain No date: Atrial fibrillation (HCC) Comment: transient; resolved No date: Awareness under anesthesia Comment: during dental surgery at dentist office No date: Back pain 01/29/2015: Benign essential HTN No date: Blood circulation, collateral No date: CAD (coronary artery disease) Comment: mild - dx on cath - neg stress No date: Cerebral artery occlusion with cerebral infarction ([facility]) Comment: patient states not ever confirmed as stoke No date: Chronic kidney disease No date: COPD (chronic obstructive pulmonary disease) ([facility]) No date: COVID-19 Comment: 05/0309/25/2020: COVID-19 vaccine series completed Comment: Moderna 12/04/2020: COVID-19 vaccine series completed Comment: BOOSTER 12/25/2004: CS (cervical spondylosis) Comment: CERVICAL SPINE DJD No date: Difficulty sleeping No date: Dizziness No date: GERD (gastroesophageal reflux disease) 06/21/2013: History of colonic polyps Comment: repeat 2019 No date: Hyperlipidemia No date: Hypothyroidism 08/15/2014: Insomnia No date: Joint pain, hip No date: Joint pain, knee No date: Memory difficulties No date: Muscle weakness 09/30/2020: Peripheral polyneuropathy No date: Rheumatoid arthritis (HCC) No date: Shortness of breath at rest No date: Sleep apnea Comment: resolved with weight loss No date: Snoring No date: SOBOE (shortness of breath on exertion) 03/19/2021: Type 2 diabetes mellitus (HCC) Comment: resolved after weight loss SPECIMEN: None OPERATIVE NOTE ADDENDUM: 1) The first-real estate assistant was critical to all steps of the operation, including retraction and leg stabilization during exposure and bone preparation, as well as the deep and superficial wound closure. I understand that section 1842(b)(7)(D) of the Social Security Act generally prohibits Medicare physician fee schedule payment for the services of assistants at surgery in teaching hospitals when qualified residents are available to furnish such services. I certify that the services for which payment is claimed were medically necessary and that no qualified resident was available to perform the services. I further understand that these services are subject to post-payment review by the Medicare carrier. 2) Operative note addendum for unusual increased surgical complexity for obesity greater than BMI 35 (BMI 36). This particular patient's condition and surgery satisfies the criteria for unusual and increased surgical complexity and resulted in significantly increased difficulty for this surgical procedure. Due to morbid obesity the procedure required additional surgical dissection, additional assistance with tissue retraction, and more complicated exposure techniques to satisfactorily perform the procedure. In addition, the energy expenditure was substantially increased for the surgeon and assistants. These factors increased the complexity, surgical risks, and duration of the procedure. The duration of this procedure in this patient was increased by approximately 40% due to the above-mentioned factors. HISTORY: The patient has progressive and debilitating hip pain secondary to end-stage osteoarthritis, supported by clinical and radiographic evidence and has failed nonoperative management. The patient was deemed appropriate for a total hip arthroplasty. Risks, benefits ,and alternatives to surgical treatment were discussed in detail with the patient and the patient wished to proceed with the total hip arthroplasty. The patient was seen and thoroughly evaluated by a medical social consultant preoperatively and was optimized for surgical intervention. SURGICAL PROCEDURE: Prior to initiation of the operative procedure a surgical time-out was taken and the patient's name, medical record, number, [id number], and operative side was verified with the surgical consent form. Additionally it was verified that the appropriate margarita-operative antibiotic administration was completed, as well as that radiographs were available and the correct operative instrumentation and implants were available. After routine preparation and draping of the patient in the total joint operating room on a regular table, a direct anterior approach was made to the hip joint. The skin and subcutaneous tissues were incised. Electrocautery was utilized to maintain hemostasis along the skin edges. The subcutaneous fat was bluntly dissected. Subsequently the tensor fascia yoni muscle was visualized and the medial and lateral borders identified. The medial border was identified by the fat strip that lies just medial to the muscle. The tip of the knife blade was used to gently incise the TFL fascia at the junction of the medial third and middle third of the TFL muscle belly. Care was taken to ensure that the musculature was not damaged at the area of the fascial incision. Finger dissection was used to locate the anterior femoral neck. A blunt Cobra retractor was then placed in the split at the level of the piriformis fossa. Subsequently the plane between the TFL and fascia was expanded distally to the inferior aspect of the wound. A sharp Hohmann retractor was placed at the level of the vastus ridge retracting the mid aspect of the TFL. The lateral circumflex vessels were then visualized and cauterized. The interval between the rectus and the anterior hip capsule at the level of the inferior neck was completed and a Pollock and then blunt Cobra retractor was placed. Subsequently the interval between the anterior capsule and the rectus was developed with electrocautery and completed with careful blunt dissection. A Pollock was used to elevate the soft tissues above the mid point of the femoral head, allowing a sharp curved Hohmann retractor to be placed safely. No muscle or superficial soft tissues were interposed under this retractor. The anterior capsule was split in a T formation from the superolateral neck to the inferomedial neck and a capsulectomy completed. The saddle of the proximal femur was identified. The electrocautery was used to louisa the sites of the femoral neck cut based on pre-op measurement. An osteotomy was completed to remove a wafer of bone, following which a power corkscrew was inserting into the remaining femoral head to extract it from the acetabulum. Then, we turned attention to placement of crest pins on the ipsilateral hip. A small incision in line with anterior crest was made. Bony window identified and pins were placed and array assembled, positioned, and tightened. Good fixation noted. A sharp broad Cobra was placed behind the posterior acetabular wall. Then, the inferior capsule was released over a tonsil. A blunt narrow Hohmann was placed under the transverse acetabular ligament. The acetabular labrum was excised with a Tara and electrocautery. We then acquired our acetabular points with a probe according to protocol. An osteotome was utilized to remove the inferior and medial osteophytes after registration to allow ease of passage of the reamer. The acetabulum was subsequently reamed under robotic guidance according to our pre-operative plan. Acetabulum was debrided and cleared of any interposing debris. The shell was impacted into place with the robotic arm with excellent stability. Two screws were placed in the posterior superior quadrant. A highly crosslinked polyethylene liner was inserted into the shell, assuring it locked circumferentially into the shell. The medial and posterior retractors were then removed and the leg brought into adduction and external rotation. The anterior retractor was then removed and a double-footed Saini retractor placed at the level of the calcar. Continue release off of calcar was completed for improved visualization and mobilization of the femur. The superolateral capsule was identified and then released. Subsequently a sharp curved Luiz retractor was placed over the greater trochanter to allow for elevation of the proximal femur. Leg was externally rotated for further visualization. The femoral neck cut was clearly identified. A rongeur was used to remove lateral neck. A small blunt canal finder was used to establish the canal. A box osteotome was utilized to remove remaining lateral femoral neck. A starter broach used to start working in a medial to lateral direction for intimate medial-lateral fit and fill of the stem. The femur was then broached in a sequential manner, lateralizing as necessary. The femoral canal was shaped to accept the appropriate sized hip stem, ensuring adequate axial and rotational stability. Good medial/lateral and anteroposterior fit was appreciated. Trial head and neck components were placed and stability, leg length, and range of motion assessed. The component position, offset, and leg length were confirmed with fluoroscopy. The final stem was impacted into place, ensuring no fracture of the calcar. Final femoral head was chosen and impacted onto a clean/dry taper. Trial and final reduction of the hip revealed good leg length, stability, and range of motion. The wound was irrigated with a sterile dilute betadine solution and sterile saline. The wound was inspected for active bleeding and was dry. The wound was closed in layers using #1 Stratafix suture in running fashion for the fascial layer. 0-Vicryl for deep adipose approximation, 2-0 Vicryl utilized for the subcutaneous closure. 3-0 monocryl subcuticular suture, Dermabond, and a sterile dressing was applied. Post-operative Plan: WBAT with assistive device Avoid extremes of motion DVT Proph 24 hrs abx Follow-up in 4 weeks Patient educated on importance of coughing/ deep breathing after surgery to reduce risk of pneumonia. Patient educated on importance of early mobility to reduce the risk of blood clots. Falls prevention information reviewed with patient. Post-operative pain control and ways to prevent constipation discussed with patient. documented in this encounter [facility] 05-28-2024 Nurse Note Reviewed home going instructions with patient. Questions asked and answered, verbalized understanding. documented in this encounter [facility] 05-28-2024 History of Presen t illness Narrative Images from the original note were not included. Hospital Medicine Consult Patient - Sophie Hicks, Age - 58 y.o. - 1965 Room Number - [id number] A Consulting - Antony Anderson MD Primary Care Physician - WILIAM FERNANDEZ MD [facility] # - [id number] Date of Admission - 05/27/2024 10:30 AM Hospital Day - 0 Reason for Consult: Medical Management HISTORY OF PRESENT ILLNESS: Sophie is a 58 y.o. male pmhx below transient atrial fibrillation, hypertension, coronary artery disease, history of cerebral infarction, chronic kidney disease, COPD, previously obstructive sleep apnea but lost weight and is no longer on it, hypertension, hypothyroidism, hyperlipidemia, type 2 diabetes who presented to [facility] on 05/27 for failure of outpatient right hip osteoarthritis management. Status post right total hip arthroplasty by Dr. Anderson on 05/27. Medical team was consulted for medical management. Sitting up in chair - waiting to be released and to go home. No concerns for urination - urinated multiple times throughout the evening. No fever or chills. Pain controlled. 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 Back pain Benign essential HTN 01/29/2015 Blood circulation, collateral CAD (coronary artery disease) mild - dx on cath - neg stress Cerebral artery occlusion with cerebral infarction (HCC) patient states not ever confirmed as stoke Chronic kidney disease COPD (chronic obstructive pulmonary disease) (HCC) COVID-19 05/03 COVID-19 vaccine series completed 09/25/2020 Moderna COVID-19 vaccine series completed 12/04/2020 BOOSTER CS (cervical spondylosis) 12/25/2004 CERVICAL SPINE DJD Difficulty sleeping Dizziness GERD (gastroesophageal reflux disease) History of colonic polyps 06/21/2013 repeat 2019 Hyperlipidemia Hypothyroidism Insomnia 08/15/2014 Joint pain, hip Joint pain, knee Memory difficulties Motion sickness 05/24/2024 Muscle weakness Peripheral polyneuropathy 09/30/2020 Rheumatoid arthritis (HCC) Shortness of breath at rest Sleep apnea resolved with weight loss Snoring SOBOE (shortness of breath on exertion) Type 2 diabetes mellitus (HCC) 03/19/2021 resolved after weight loss Past Surgical History: Past Surgical History: Procedure Laterality Date APPENDECTOMY BARIATRIC SURGERY 12/03/2021 Dr. Trevino CARDIAC CATHETERIZATION 12/17/2013 NORMAL CORONARY ARTERIES AND LVEF. COLONOSCOPY COLONOSCOPY 2020 CYSTOSCOPY 10/26/2020 CYSTOSCOPY 11/19/2020 CYSTOSCOPY 09/16/2023 EGD (HISTORICAL) 03/02/2023 NECK SURGERY Posterior cervical fusion PANNICULECTOMY (HISTORICAL) 09/23/2023 ROTATOR CUFF REPAIR Bilateral 2023 both surgeries UPPER GASTROINTESTINAL ENDOSCOPY 01/24/2021 Dr. Cabello Medications: Scheduled PRN acetaminophen, 650 mg, Oral, q6h aspirin, 81 mg, Oral, BID atorvastatin, 80 mg, Oral, Nightly buPROPion XL, 150 mg, Oral, Daily busPIRone, 10 mg, Oral, BID dicyclomine, 10 mg, Oral, 4x daily famotidine, 20 mg, Oral, BID finasteride, 5 mg, Oral, Daily gabapentin, 600 mg, Oral, TID levothyroxine, 75 mcg, Oral, qAM AC mometasone-formoterol, 2 puff, Inhalation, BID pantoprazole, 40 mg, Oral, Daily sertraline, 50 mg, Oral, Daily sodium chloride 0.9%, 10 mL, IntraVENous, 2 times per day tamsulosin, 0.4 mg, Oral, Daily PRN medications: albuterol, ALPRAZolam, bisacodyl, diphenhydrAMINE OR diphenhydrAMINE, HYDROmorphone OR HYDROmorphone, magnesium citrate, naloxone, ondansetron ODT OR ondansetron, oxyCODONE-acetaminophen, oxyCODONE-acetaminophen, sodium chloride, sodium chloride 0.9% Continuous sodium chloride, 125 mL/hr, Last Rate: Stopped (05/27/242099) Allergies: Iodinated contrast media and Nsaids Social History: Social History Socioeconomic History Marital status: Spouse name: Not on file Number of children: Not on file Years of education: Not on file Highest education level: Not on file Occupational History Not on file Tobacco Use Smoking status: Never Smokeless tobacco: Never Vaping Use Vaping status: Never Used Substance and Sexual Activity Alcohol use: Never Drug use: Never Sexual activity: Yes Partners: Female control/protection: Surgical, None Other Topics Concern Not on file Social History Narrative Not on file Social Drivers of Health Financial Resource Strain: Not on file Food Insecurity: No Food Insecurity (08/18/2023) Hunger Vital Sign Worried About Running Out of Food in the Last Year: Never true Ran Out of Food in the Last Year: Never true Transportation Needs: No Transportation Needs (10/01/2023) PRAPARE - Transportation Lack of Transportation (Medical): No Lack of Transportation (Non-Medical): No Physical Activity: Not on file Stress: Not on file Social Connections: Not on file Intimate Partner Violence: Not At Risk (10/01/2023) Humiliation, Afraid, Rape, and Kick questionnaire Fear of Current or Ex-Partner: No Emotionally Abused: No Physically Abused: No Sexually Abused: No Housing Stability: Low Risk (10/01/2023) Housing Stability Vital Sign Unable to Pay for Housing in the Last Year: No Number of Times Moved in the Last Year: 1 Homeless in the Last Year: No Family History: Family History Problem Relation Name Age of Onset Cancer Mother Kerri hicks Osteoarthritis Mother Kerri hicks Lung cancer Mother Kerri hicks smoker Coronary artery disease Other REVIEW OF SYSTEMS: 10 point ROS obtained, as per HPI, otherwise NEG Physical Exam: Vitals: BP 120/59 Pulse 87 Temp 37.3 C (99.2 F) (Temporal) Resp 16 Ht 6' 2 (1.88 m) Wt 280 lb (127 kg) SpO2 94% BMI 35.95 kg/m BMI Classification: Obese (BMI 30.0-39.9) Pulse Ox: SpO2 Av.9 % Min: 93 % Max: 100 % Supplemental O2: O2 Flow Rate (L/min): 6 L/min Physical Exam Vitals and nursing note reviewed. Constitutional: Appearance: He is obese. He is not ill-appearing. HENT: Head: Normocephalic. Eyes: Conjunctiva/sclera: Conjunctivae normal. Cardiovascular: Rate and Rhythm: Normal rate and regular rhythm. Heart sounds: Murmur heard. Pulmonary: Effort: No respiratory distress. Abdominal: General: Bowel sounds are normal. Musculoskeletal: General: Tenderness and signs of injury present. Right lower leg: Edema present. Left lower leg: Edema present. Comments: Dressing to right hip dry and intact with no shadowing Skin: Capillary Refill: Capillary refill takes less than 2 seconds. Findings: Bruising present. Neurological: Mental Status: He is alert and oriented to person, place, and time. LABS: Recent Results (from the past 24 hours) Basic metabolic panel Collection Time: 05/28/24 2:24 AM Result Value Ref Range SODIUM 134 (L) 136 - 145 mmol/L POTASSIUM 4.4 3.5 - 5.1 mmol/L CHLORIDE 106 98 - 107 mmol/L CARBON DIOXIDE 19 (L) 22 - 29 mmol/L UREA NITROGEN 18 9 - 23 mg/dL CREATININE 1.29 (H) 0.72 - 1.25 mg/dL GLUCOSE 176 (H) 74 - 100 mg/dL CALCIUM 8.3 (L) 8.8 - 10.0 mg/dL ANION GAP 9 3 - 13 mmol/L eGFR 63.5 >60.0 mL/min/1.73m*2 Hemoglobin and hematocrit, blood Collection Time: 05/28/24 2:24 AM Result Value Ref Range Hemoglobin 11.7 (L) 13.0 - 18.0 g/dL Hematocrit 35.8 (L) 40.0 - 52.0 % Urine Culture: Results for orders placed or performed during the hospital encounter of 08/21/23 Urine culture Collection Time: 08/21/23 10:32 PM Specimen: Urine, Clean Catch Result Value Ref Range Urine Culture No growth (<1,000 CFU/mL) IMAGING: See report Assessment Data: (CAT1) Reviewed 3 or more notes from different specialty or health system (each=1). (CAT1) Reviewed 3 or more labs/studies ordered by another provider not previously counted (each=1, panels count as 1). (CAT1) Ordered 3 or more new labs and/or studies (each=1, panels count as 1). (LOW: 2x CAT1 or independent historian MOD: 3x CAT1 or 1x CAT3 EXTENSIVE: 3x CAT1 and 1x CAT3) Acute, acute on chronic, unstable/uncontrolled chronic problems/diagnoses: Right hip osteoarthritis status post right TKA on 05/27 Orthopedics primary Coronary artery disease Aspirin 81 mg increased to 81 mg twice daily for 30 days postop Continue atorvastatin Hypertension -diet and exercise controlled Obstructive sleep apnea -lost weight status post bariatric surgery no CPAP needed COPD and asthma Rescue inhalers ordered on day of surgery History atrial fibrillation not on anticoagulation therapy Continue ASA twice daily postop Hypothyroidism Continue Synthroid Anxiety and depression Continue Wellbutrin, BuSpar, Xanax 1 mg as needed nightly and 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 Labs in the AM. Home medications addressed and resumed as indicated. PT/OT eval and treat. Discharge planning per ortho. - Medically cleared for DC - am labs, replace lytes prn - PT/OT/CM/SW - delirium precautions: increase activity and limit nighttime disturbances - DVT prophylaxis: encourage ambulation Complexity: Acute, complicated injury (MOD). Risk: Admission to hospital-level care was considered or occurred (HIGH). Low risk diagnostic testing or treatment (LOW). Advance Directive: Full Code Anticipated Discharge - Date - 05/28 - Location - home vs home health - Pending the following - PT and OT release, and orthopedic discharge upon medical clearance Total time spent (which include face to face and non face to face encounters) : 25 minutes Toxic drug monitoring/narrow therapeutic index drug monitoring : # Drug name : NA # Route administered : NA # Method of monitoring : NA Extended Emergency Contact Information Primary Emergency Contact: Ellie Hicks Relation: Spouse Motor Builder Assembler needed? No Leah Bella MD Division of Hospitalist Medicine [facility] Images from the original note were not included. OCCUPATIONAL THERAPY [facility] Initial Evaluation Having reviewed the treatment plan and goals for this patient, I certify that the plan of care below is medically necessary and appropriate. Name/MRN: Titi Hicks ([id number]) Evaluation Date: 05/28/2024 Date of : 1965 Admission Date: 05/27/2024 10:30 AM Age: 58 y.o. Room/Bed: B1-167/B1-167 A Discharge Recommendation: Home with assist PRN, Home with Home health OT Equipment Needed: No Assessment IMPRESSION: Pt in 05/27 and seen s/p R GEORGE by Dr. Anderson with new WBAT status and anterior hip precautions. He was previously independent for ADLs, functional transfers/mobility. He is currently modified independent for ADLs, functional transfers/mobility with a front wheel walker and hip kit equipment. He demos no true loss of balance with out of bed activity at this time. No complaint of dizziness this date. Patient limited mildly by increased pain and new precautions this date. He has met all acute OT goals at this time. Recommend plan discharge for home health care OT with assist as needed. Admitting Diagnosis: Status post right GEORGE with new weightbearing as tolerated status Performance Deficits /Impairments: Increased Pain Prognosis: Good Decision Making: Medium Complexity Subjective Pleasant and cooperative. OK to see per RN. Sx dressing clean, dry, intact. Vitals Heart Rate: 87 Heart Rate Source: Monitor BP: 120/59 MAP (mmHg): 79 Pain: 0-10 pain scale: 8/10 Location: R hip 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 Back pain Benign essential HTN 01/29/2015 Blood circulation, collateral CAD (coronary artery disease) mild - dx on cath - neg stress Cerebral artery occlusion with cerebral infarction (HCC) patient states not ever confirmed as stoke Chronic kidney disease COPD (chronic obstructive pulmonary disease) (HCC) COVID-19 05/03 COVID-19 vaccine series completed 09/25/2020 Moderna COVID-19 vaccine series completed 12/04/2020 BOOSTER CS (cervical spondylosis) 12/25/2004 CERVICAL SPINE DJD Difficulty sleeping Dizziness GERD (gastroesophageal reflux disease) History of colonic polyps 06/21/2013 repeat 2019 Hyperlipidemia Hypothyroidism Insomnia 08/15/2014 Joint pain, hip Joint pain, knee Memory difficulties Motion sickness 05/24/2024 Muscle weakness Peripheral polyneuropathy 09/30/2020 Rheumatoid arthritis (HCC) Shortness of breath at rest Sleep apnea resolved with weight loss Snoring SOBOE (shortness of breath on exertion) Type 2 diabetes mellitus (HCC) 03/19/2021 resolved after weight loss Past Surgical History: Past Surgical History: Procedure Laterality Date APPENDECTOMY BARIATRIC SURGERY 12/03/2021 Dr. Trevino CARDIAC CATHETERIZATION 12/17/2013 NORMAL CORONARY ARTERIES AND LVEF. COLONOSCOPY COLONOSCOPY 2020 CYSTOSCOPY 10/26/2020 CYSTOSCOPY 11/19/2020 CYSTOSCOPY 09/16/2023 EGD (HISTORICAL) 03/02/2023 NECK SURGERY Posterior cervical fusion PANNICULECTOMY (HISTORICAL) 09/23/2023 ROTATOR CUFF REPAIR Bilateral 2023 both surgeries UPPER GASTROINTESTINAL ENDOSCOPY 01/24/2021 Dr. Cabello Admission Diagnosis: Patient Active Problem List Diagnosis Date Noted Arthritis of right hip 05/27/2024 Motion sickness 05/24/2024 Arthropathy of spinal facet joint 05/10/2024 Diabetic neuropathy (HCC) 05/10/2024 Herniated lumbar intervertebral disc 05/10/2024 Pain of lower extremity 05/10/2024 Postlaminectomy syndrome of cervical region 05/10/2024 Shoulder pain 05/10/2024 Abdominal pannus 09/23/2023 Awareness under anesthesia 09/15/2023 Hematuria 08/18/2023 Thrombocytopenia, unspecified (HCC) 01/14/2022 Deficiency of multiple nutrient elements 12/05/2021 Obesity, Class III, BMI 40-49.9 (morbid obesity) ([facility]) 11/11/2019 History of colonic polyps 01/29/2015 Hyperlipidemia 02/25/2021 Benign essential HTN 10/01/2020 Multiple joint pain 10/01/2020 CAD (coronary artery disease) 10/01/2020 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, thoracic 10/01/2020 Degenerative disc disease, lumbar 10/01/2020 Peripheral polyneuropathy 10/01/2020 Chronic back pain 10/01/2020 GERD (gastroesophageal reflux disease) 10/01/2020 Occlusion and stenosis of bilateral carotid arteries 09/30/2020 Urinary hesitancy 09/30/2020 Cervical spondylosis 09/30/2020 Nephrotic syndrome with membranous glomerulonephritis 09/30/2020 Disorder of bladder 09/30/2020 Cervicalgia 09/30/2020 History of snoring 09/18/2020 Hx: nephrotic syndrome 08/26/2020 DJD (degenerative joint disease) of cervical spine 07/25/2020 Neurological symptoms 07/25/2020 TIA (transient ischemic attack) 07/23/2020 Medical Precautions: No active isolations Proper PPE donned/doffed in accordance with facility standards. Fall Risk: Hanson Fall Risk Score: 60 (High Risk) Precautions/Restrictions: Right LE Weight Bearing: Weight Bearing As Tolerated Hip Precautions: Anterior Hip Precautions, No Straight Leg Raises, and Avoid Extremes of Motion Family/Caregiver Present: none Overall Cognitive Status: WFL Overall Orientation Status: Oriented x4 Social/Functional History Patient admitted from home. 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 No true loss of balance noted with out of bed activity at this time. He was able to complete full body dressing with modified independence overall. He completed dressing with his own clothing for home-going. Good teach back noted of all adaptive dressing techniques and use of AE at this time. He was able to complete with use of hip kit equipment this date. No difficulty noted at this time. He completed bathroom level toileting simulation with no physical assist for clothing management or MARGARITA care noted this date. Educated on proper front wheel walker management for standing ADL tasks during hand hygiene at sink level stimulation. Patient with no current concerns for home-going. Upper Extremity Assessment AROM: WFL PROM: Not assessed this session Strength: WFL Bed Mobility Supine to sit: Modified Independent Scooting: Modified Independent HOB elevated, increased time required to complete. Pt educated on WBAT status and anterior hip precautions prior to participation in OOB activity. Denies dizziness with OOB activity. Good ability to maintain precautions throughout session. Pt was able to manage BLE and trunk to EOB without assist. Pt up in recliner following session. Transfers/Mobility Sit to stand: Modified Independent Stand to sit: Modified Independent Toilet: Modified Independent Shower: Supervision Functional mobility: Modified Independent Functional Transfers: Increased time required to complete. Pt able to maintain precautions throughout session. Pt was educated on proper BLE management, hand placement and device positioning with good teach back noted at this time. Pt demos good hand placement for push up from /reach back for seated surfaces with good BLE management to maintain precautions and proper VICKIE. Pt utilizes grab bars simulating home set up. He completed sit<>stands progressing to MOD I this date with no c/o dizziness with positonal changes. Good carryover of transfer training to completion of bathroom level toilet transfers. Pt educated on walk in shower transfer with use of FWW and good teach back noted. SUP overall with pt reporting is able to assist as needed at home. Functional Mobility: No true LOB noted at this time, good device management with good hand placement at FWW. No noted BLE buckling this date. He completed functional home distances in hallway with FWW and MOD I overall. Good device management noted throughout. Pt requires increased time to complete with increased noted offloading through BUE and device. Device(s) used: Front wheeled walker Vision: wears glasses for reading and and are NOT being used during the eval Hearing: normal AM-PAC AM-PAC Inpatient Daily Activity Raw Score: 24 ADL Inpatient CMS G-Code Modifier: CH Plan No skilled acute OT indicated at this time. Please reconsult should changes occur. Pt has met all acute OT goals at this time. Safety/Education Safety Safety Devices in place: All fall risk precautions in place, call light within reach, left in chair, gait belt, nurse notified, and no alarms engaged upon entry Restraints: No Education Education Given To: patient Education Provided: OT Role, Plan of Care, Precautions, ADL Adaptive Strategies, Transfer Training, Equipment, Fall Prevention Education, Discharge Recommendations, and Benefits of Increasing Activity Education Method: Verbal, Demonstration, and Teach Back Barriers to Learning: None Education Outcome: Verbalized Understanding and Demonstrated Understanding Goals Patient Stated Goal: to return home. Encounter Problems Encounter Problems (Resolved) Dressing Upper Extremities Patient will complete upper body dressing MOD I (Goal Met) Start: 05/28/24 Expected End: 05/28/24 Resolved: 05/28/24 Dressings Lower Extremities Patient will dress lower body MOD I with AE (Goal Met) Start: 05/28/24 Expected End: 05/28/24 Resolved: 05/28/24 Mobility Patient will demonstrate functional mobility with MOD I and FWW (Goal Met) Start: 05/28/24 Expected End: 05/28/24 Resolved: 05/28/24 Toileting Patient will complete toileting tasks at standard toilet with modified independence. (Goal Met) Start: 05/28/24 Expected End: 05/28/24 Resolved: 05/28/24 Transfers Patient will complete functional transfer with rolling walker with modified independence in order to prepare for ambulation. (Goal Met) Start: 05/28/24 Expected End: 05/28/24 Resolved: 05/28/24 Therapy Time Individual Co-Treatment Co-Evaluation Time In 0859 Time Out 0925 Minutes 26 Timed Code Treatment Minutes: 10 Minutes (ADL) Ramiro Salomon OT Patient's Occupational Therapy Plan of Care supervision is transferred to a [facility] Therapy Services Occupational Therapist. Goals and/or treatment plan was established in collaboration with patient/family/other representatives. Images from the original note were not included. Adult Hip and Knee Reconstruction Service Patient Name: Sophie Hicks Date of : 1965 Date: 05/28/24 Assessment: s/p Right GEORGE on 05/27/2024 doing well Plan: Continue PT - WBAT Pain control DVT Prophylaxis - ASA 81 /SCDs Abx x24hrs, D/c planning - home when clears PT Subjective: NAD, NAEO, had some pain issues that have somewhat subsided. Has mobilized to the bathroom without issue. Nervous about getting up with PT and also about going home. Medications: acetaminophen, 650 mg, Oral, q6h aspirin, 81 mg, Oral, BID atorvastatin, 80 mg, Oral, Nightly buPROPion XL, 150 mg, Oral, Daily busPIRone, 10 mg, Oral, BID dicyclomine, 10 mg, Oral, 4x daily famotidine, 20 mg, Oral, BID finasteride, 5 mg, Oral, Daily gabapentin, 600 mg, Oral, TID levothyroxine, 75 mcg, Oral, qAM AC mometasone-formoterol, 2 puff, Inhalation, BID pantoprazole, 40 mg, Oral, Daily sertraline, 50 mg, Oral, Daily sodium chloride 0.9%, 10 mL, IntraVENous, 2 times per day tamsulosin, 0.4 mg, Oral, Daily Physical Exam: Vitals: 05/28/24 0718 BP: 134/66 Pulse: 78 Resp: 16 Temp: 37.3 C (99.2 F) SpO2: 94% Intake and Output Summary (Last 24 hours) at Date Time Intake/Output Summary (Last 24 hours) at 05/28/2024 0723 Last data filed at 05/28/2024 0645 Gross per 24 hour Intake 2154 ml Output 2200 ml Net -46 ml General appearance - no acute distress Musculoskeletal - Dressing C/D/I Fires quad/TA/EHL/GSC SILT SP/DP/TN WWP distally Calves soft, nontender bilateral Labs: Lab Results Component Value Date HGB 11.7 (L) 05/28/2024 , Lab Results Component Value Date WBC 3.9 05/17/2024 HGB 11.7 (L) 05/28/2024 HCT 35.8 (L) 05/28/2024 MCV 88.4 05/17/2024 PLT 116 (L) 05/17/2024 , and Lab Results Component Value Date GLUCOSE 176 (H) 05/28/2024 CALCIUM 8.3 (L) 05/28/2024 NA 134 (L) 05/28/2024 K 4.4 05/28/2024 CO2 19 (L) 05/28/2024 CL 106 05/28/2024 BUN 18 05/28/2024 CREATININE 1.29 (H) 05/28/2024 Rads: Radiological Procedure reviewed. Signed by: RO MONIQUE MD Images from the original note were not included. PHYSICAL THERAPY [facility] Name/MRN: Titi Hicks ([id number]) Date: 05/27/2024 Chart review completed. Patient remains in the recovery phase at this time in the PACU, report not yet given and has not yet transferred to the Orthopedic Unit. Will complete PT evaluation tomorrow morning. Juanita Walsh, PT documented in this encounter [facility] 05-28-2024 Plan of care note Problem: Pain - Adult Goal: Verbalizes/displays adequate comfort level or baseline comfort level Outcome: Progressing Problem: Safety - Adult Goal: Free from fall injury Outcome: Progressing Problem: Musculoskeletal - Adult Goal: Return mobility to safest level of function Outcome: Progressing [facility] 05-27-2024 Consult note Associated Order (s): IP CONSULT TO INTERNAL MEDICINE Images from the original note were not included. Hospital Medicine Consult Patient - Sophie Hicks, Age - 58 y.o. - 1965 Room Number - [id number] Consulting - Antony Anderson MD Primary Care Physician [id number] Date of Admission - 05/27/2024 10:30 AM Hospital Day - 0 Reason for Consult: Medical Management HISTORY OF PRESENT ILLNESS: Sophie is a 58 y.o. male pmhx below transient atrial fibrillation, hypertension, coronary artery disease, history of cerebral infarction, chronic kidney disease, COPD, previously obstructive sleep apnea but lost weight and is no longer on it, hypertension, hypothyroidism, hyperlipidemia, type 2 diabetes who presented to [facility] on 05/27 for failure of outpatient right hip osteoarthritis management. Status post right total hip arthroplasty by Dr. Anderson on 05/27. Medical team was consulted for medical management. Doing well postoperatively has some pain to the right hip but manageable at this time. Has not ate anything, has not had a bowel or urine since arriving to the unit. Denies any nausea and is about to order food. Did not get the chance to work with PT and OT as arrived late. 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 Back pain Benign essential HTN 01/29/2015 Blood circulation, collateral CAD (coronary artery disease) mild - dx on cath - neg stress Cerebral artery occlusion with cerebral infarction (HCC) patient states not ever confirmed as stoke Chronic kidney disease COPD (chronic obstructive pulmonary disease) (HCC) COVID-19 05/03 COVID-19 vaccine series completed 09/25/2020 Moderna COVID-19 vaccine series completed 12/04/2020 BOOSTER CS (cervical spondylosis) 12/25/2004 CERVICAL SPINE DJD Difficulty sleeping Dizziness GERD (gastroesophageal reflux disease) History of colonic polyps 06/21/2013 repeat 2019 Hyperlipidemia Hypothyroidism Insomnia 08/15/2014 Joint pain, hip Joint pain, knee Memory difficulties Motion sickness 05/24/2024 Muscle weakness Peripheral polyneuropathy 09/30/2020 Rheumatoid arthritis (HCC) Shortness of breath at rest Sleep apnea resolved with weight loss Snoring SOBOE (shortness of breath on exertion) Type 2 diabetes mellitus (HCC) 03/19/2021 resolved after weight loss Past Surgical History: Past Surgical History: Procedure Laterality Date APPENDECTOMY BARIATRIC SURGERY 12/03/2021 Dr. Trevino CARDIAC CATHETERIZATION 12/17/2013 NORMAL CORONARY ARTERIES AND LVEF. COLONOSCOPY COLONOSCOPY 2020 CYSTOSCOPY 10/26/2020 CYSTOSCOPY 11/19/2020 CYSTOSCOPY 09/16/2023 EGD (HISTORICAL) 03/02/2023 NECK SURGERY Posterior cervical fusion PANNICULECTOMY (HISTORICAL) 09/23/2023 ROTATOR CUFF REPAIR Bilateral 2023 both surgeries UPPER GASTROINTESTINAL ENDOSCOPY 01/24/2021 Dr. Cabello Medications: Scheduled PRN acetaminophen, 650 mg, Oral, q6h aspirin, 81 mg, Oral, BID atorvastatin, 80 mg, Oral, Nightly buPROPion XL, 150 mg, Oral, Daily busPIRone, 10 mg, Oral, BID ceFAZolin, 2,000 mg, IntraVENous, q8h dexAMETHasone, 8 mg, IntraVENous, q6h dicyclomine, 10 mg, Oral, 4x daily famotidine, 20 mg, Oral, BID finasteride, 5 mg, Oral, Daily gabapentin, 600 mg, Oral, TID [START ON 05/28/2024] levothyroxine, 75 mcg, Oral, qAM AC mometasone-formoterol, 2 puff, Inhalation, BID pantoprazole, 40 mg, Oral, Daily sertraline, 50 mg, Oral, Daily sodium chloride 0.9%, 10 mL, IntraVENous, 2 times per day tamsulosin, 0.4 mg, Oral, Daily PRN medications: albuterol, bisacodyl, diphenhydrAMINE OR diphenhydrAMINE, HYDROmorphone OR HYDROmorphone, magnesium citrate, naloxone, ondansetron ODT OR ondansetron, oxyCODONE-acetaminophen, oxyCODONE-acetaminophen, sodium chloride, sodium chloride 0.9% Continuous sodium chloride, 125 mL/hr Allergies: Iodinated contrast media and Nsaids Social History: Social History Socioeconomic History Marital status: Spouse name: Not on file Number of children: Not on file Years of education: Not on file Highest education level: Not on file Occupational History Not on file Tobacco Use Smoking status: Never Smokeless tobacco: Never Vaping Use Vaping status: Never Used Substance and Sexual Activity Alcohol use: Never Drug use: Never Sexual activity: Yes Partners: Female control/protection: Surgical, None Other Topics Concern Not on file Social History Narrative Not on file Social Drivers of Health Financial Resource Strain: Not on file Food Insecurity: No Food Insecurity (08/18/2023) Hunger Vital Sign Worried About Running Out of Food in the Last Year: Never true Ran Out of Food in the Last Year: Never true Transportation Needs: No Transportation Needs (10/01/2023) PRAPARE - Transportation Lack of Transportation (Medical): No Lack of Transportation (Non-Medical): No Physical Activity: Not on file Stress: Not on file Social Connections: Not on file Intimate Partner Violence: Not At Risk (10/01/2023) Humiliation, Afraid, Rape, and Kick questionnaire Fear of Current or Ex-Partner: No Emotionally Abused: No Physically Abused: No Sexually Abused: No Housing Stability: Low Risk (10/01/2023) Housing Stability Vital Sign Unable to Pay for Housing in the Last Year: No Number of Times Moved in the Last Year: 1 Homeless in the Last Year: No Family History: Family History Problem Relation Name Age of Onset Cancer Mother Kerri hicks Osteoarthritis Mother Kerri hicks Lung cancer Mother Kerri hicks smoker Coronary artery disease Other REVIEW OF SYSTEMS: 10 point ROS obtained, as per HPI, otherwise NEG Physical Exam: Vitals: BP 110/50 Pulse 86 Temp 37.1 C (98.8 F) (Temporal) Resp 16 Ht 6' 2 (1.88 m) Wt 280 lb (127 kg) SpO2 95% BMI 35.95 kg/m BMI Classification: Obese (BMI 30.0-39.9) Pulse Ox: SpO2 Av.2 % Min: 94 % Max: 100 % Supplemental O2: O2 Flow Rate (L/min): 6 L/min Physical Exam Vitals and nursing note reviewed. Constitutional: Appearance: He is obese. He is not ill-appearing. HENT: Head: Normocephalic. Eyes: Conjunctiva/sclera: Conjunctivae normal. Cardiovascular: Rate and Rhythm: Normal rate and regular rhythm. Heart sounds: Murmur heard. Pulmonary: Effort: No respiratory distress. Abdominal: General: Bowel sounds are normal. Musculoskeletal: General: Tenderness and signs of injury present. Right lower leg: Edema present. Left lower leg: Edema present. Comments: Dressing to right hip dry and intact with no shadowing Skin: Capillary Refill: Capillary refill takes less than 2 seconds. Findings: Bruising present. Neurological: Mental Status: He is alert and oriented to person, place, and time. LABS: No results found for this or any previous visit (from the past 24 hours). Urine Culture: Results for orders placed or performed during the hospital encounter of 08/21/23 Urine culture Collection Time: 08/21/23 10:32 PM Specimen: Urine, Clean Catch Result Value Ref Range Urine Culture No growth (<1,000 CFU/mL) IMAGING: See report Assessment Data: (CAT1) Reviewed 3 or more notes from different specialty or health system (each=1). (CAT1) Reviewed 3 or more labs/studies ordered by another provider not previously counted (each=1, panels count as 1). (CAT1) Ordered 3 or more new labs and/or studies (each=1, panels count as 1). (LOW: 2x CAT1 or independent historian MOD: 3x CAT1 or 1x CAT3 EXTENSIVE: 3x CAT1 and 1x CAT3) Acute, acute on chronic, unstable/uncontrolled chronic problems/diagnoses: Right hip osteoarthritis status post right TKA on 05/27 Orthopedics primary Coronary artery disease Aspirin 81 mg increased to 81 mg twice daily for 30 days postop Continue atorvastatin Hypertension -diet and exercise controlled Obstructive sleep apnea -lost weight status post bariatric surgery no CPAP needed COPD and asthma Rescue inhalers ordered on day of surgery History atrial fibrillation not on anticoagulation therapy Continue ASA twice daily postop Hypothyroidism Continue Synthroid Anxiety and depression Continue Wellbutrin, BuSpar, Xanax 1 mg as needed nightly and 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 Labs in the AM. Home medications addressed and resumed as indicated. PT/OT eval and treat. Discharge planning per ortho. - am labs, replace lytes prn - PT/OT/CM/SW - delirium precautions: increase activity and limit nighttime disturbances - DVT prophylaxis: encourage ambulation Complexity: Acute, complicated injury (MOD). Risk: Admission to hospital-level care was considered or occurred (HIGH). Low risk diagnostic testing or treatment (LOW). Advance Directive: Full Code Anticipated Discharge - Date - 05/28 - Location - home vs home health - Pending the following - PT and OT release, and orthopedic discharge upon medical clearance Total time spent (which include face to face and non face to face encounters) : 55 minutes Toxic drug monitoring/narrow therapeutic index drug monitoring : # Drug name : NA # Route administered : NA # Method of monitoring : NA Extended Emergency Contact Information Primary Emergency Contact: Ellie Hicks Relation: Spouse Motor Builder Assembler needed? No Leah Bella MD Division of Hospitalist Medicine [facility] 05-27-2024 Consult note Associated Order (s): IP CONSULT TO INTERNAL MEDICINE Images from the original note were not included. Hospital Medicine Consult Patient - Sophie Hicks, Age - 58 y.o. - 1965 Room Number - [id number] Consulting - Antony Anderson MD Primary Care Physician - [id number] Date of Admission - 05/27/2024 10:30 AM Hospital Day - 0 Reason for Consult: Medical Management HISTORY OF PRESENT ILLNESS: Sophie is a 58 y.o. male pmhx below transient atrial fibrillation, hypertension, coronary artery disease, history of cerebral infarction, chronic kidney disease, COPD, previously obstructive sleep apnea but lost weight and is no longer on it, hypertension, hypothyroidism, hyperlipidemia, type 2 diabetes who presented to [facility] on 05/27 for failure of outpatient right hip osteoarthritis management. Status post right total hip arthroplasty by Dr. Anderson on 05/27. Medical team was consulted for medical management. Doing well postoperatively has some pain to the right hip but manageable at this time. Has not ate anything, has not had a bowel or urine since arriving to the unit. Denies any nausea and is about to order food. Did not get the chance to work with PT and OT as arrived late. 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 Back pain Benign essential HTN 01/29/2015 Blood circulation, collateral CAD (coronary artery disease) mild - dx on cath - neg stress Cerebral artery occlusion with cerebral infarction (HCC) patient states not ever confirmed as stoke Chronic kidney disease COPD (chronic obstructive pulmonary disease) (HCC) COVID-19 05/03 COVID-19 vaccine series completed 09/25/2020 Moderna COVID-19 vaccine series completed 12/04/2020 BOOSTER CS (cervical spondylosis) 12/25/2004 CERVICAL SPINE DJD Difficulty sleeping Dizziness GERD (gastroesophageal reflux disease) History of colonic polyps 06/21/2013 repeat 2019 Hyperlipidemia Hypothyroidism Insomnia 08/15/2014 Joint pain, hip Joint pain, knee Memory difficulties Motion sickness 05/24/2024 Muscle weakness Peripheral polyneuropathy 09/30/2020 Rheumatoid arthritis ([facility]) Shortness of breath at rest Sleep apnea resolved with weight loss Snoring SOBOE (shortness of breath on exertion) Type 2 diabetes mellitus ([facility]) 03/19/2021 resolved after weight loss Past Surgical History: Past Surgical History: Procedure Laterality Date APPENDECTOMY BARIATRIC SURGERY 12/03/2021 Dr. Trevino CARDIAC CATHETERIZATION 12/17/2013 NORMAL CORONARY ARTERIES AND LVEF. COLONOSCOPY COLONOSCOPY 2020 CYSTOSCOPY 10/26/2020 CYSTOSCOPY 11/19/2020 CYSTOSCOPY 09/16/2023 EGD (HISTORICAL) 03/02/2023 NECK SURGERY Posterior cervical fusion PANNICULECTOMY (HISTORICAL) 09/23/2023 ROTATOR CUFF REPAIR Bilateral 2023 both surgeries UPPER GASTROINTESTINAL ENDOSCOPY 01/24/2021 Dr. Cabello Medications: Scheduled PRN acetaminophen, 650 mg, Oral, q6h aspirin, 81 mg, Oral, BID atorvastatin, 80 mg, Oral, Nightly buPROPion XL, 150 mg, Oral, Daily busPIRone, 10 mg, Oral, BID ceFAZolin, 2,000 mg, IntraVENous, q8h dexAMETHasone, 8 mg, IntraVENous, q6h dicyclomine, 10 mg, Oral, 4x daily famotidine, 20 mg, Oral, BID finasteride, 5 mg, Oral, Daily gabapentin, 600 mg, Oral, TID [START ON 05/28/2024] levothyroxine, 75 mcg, Oral, qAM AC mometasone-formoterol, 2 puff, Inhalation, BID pantoprazole, 40 mg, Oral, Daily sertraline, 50 mg, Oral, Daily sodium chloride 0.9%, 10 mL, IntraVENous, 2 times per day tamsulosin, 0.4 mg, Oral, Daily PRN medications: albuterol, bisacodyl, diphenhydrAMINE OR diphenhydrAMINE, HYDROmorphone OR HYDROmorphone, magnesium citrate, naloxone, ondansetron ODT OR ondansetron, oxyCODONE-acetaminophen, oxyCODONE-acetaminophen, sodium chloride, sodium chloride 0.9% Continuous sodium chloride, 125 mL/hr Allergies: Iodinated contrast media and Nsaids Social History: Social History Socioeconomic History Marital status: Spouse name: Not on file Number of children: Not on file Years of education: Not on file Highest education level: Not on file Occupational History Not on file Tobacco Use Smoking status: Never Smokeless tobacco: Never Vaping Use Vaping status: Never Used Substance and Sexual Activity Alcohol use: Never Drug use: Never Sexual activity: Yes Partners: Female control/protection: Surgical, None Other Topics Concern Not on file Social History Narrative Not on file Social Drivers of Health Financial Resource Strain: Not on file Food Insecurity: No Food Insecurity (08/18/2023) Hunger Vital Sign Worried About Running Out of Food in the Last Year: Never true Ran Out of Food in the Last Year: Never true Transportation Needs: No Transportation Needs (10/01/2023) PRAPARE - Transportation Lack of Transportation (Medical): No Lack of Transportation (Non-Medical): No Physical Activity: Not on file Stress: Not on file Social Connections: Not on file Intimate Partner Violence: Not At Risk (10/01/2023) Humiliation, Afraid, Rape, and Kick questionnaire Fear of Current or Ex-Partner: No Emotionally Abused: No Physically Abused: No Sexually Abused: No Housing Stability: Low Risk (10/01/2023) Housing Stability Vital Sign Unable to Pay for Housing in the Last Year: No Number of Times Moved in the Last Year: 1 Homeless in the Last Year: No Family History: Family History Problem Relation Name Age of Onset Cancer Mother Kerri hicks Osteoarthritis Mother Kerri hicks Lung cancer Mother Kerri hicks smoker Coronary artery disease Other REVIEW OF SYSTEMS: 10 point ROS obtained, as per HPI, otherwise NEG Physical Exam: Vitals: BP 110/50 Pulse 86 Temp 37.1 C (98.8 F) (Temporal) Resp 16 Ht 6' 2 (1.88 m) Wt 280 lb (127 kg) SpO2 95% BMI 35.95 kg/m BMI Classification: Obese (BMI 30.0-39.9) Pulse Ox: SpO2 Av.2 % Min: 94 % Max: 100 % Supplemental O2: O2 Flow Rate (L/min): 6 L/min Physical Exam Vitals and nursing note reviewed. Constitutional: Appearance: He is obese. He is not ill-appearing. HENT: Head: Normocephalic. Eyes: Conjunctiva/sclera: Conjunctivae normal. Cardiovascular: Rate and Rhythm: Normal rate and regular rhythm. Heart sounds: Murmur heard. Pulmonary: Effort: No respiratory distress. Abdominal: General: Bowel sounds are normal. Musculoskeletal: General: Tenderness and signs of injury present. Right lower leg: Edema present. Left lower leg: Edema present. Comments: Dressing to right hip dry and intact with no shadowing Skin: Capillary Refill: Capillary refill takes less than 2 seconds. Findings: Bruising present. Neurological: Mental Status: He is alert and oriented to person, place, and time. LABS: No results found for this or any previous visit (from the past 24 hours). Urine Culture: Results for orders placed or performed during the hospital encounter of 08/21/23 Urine culture Collection Time: 08/21/23 10:32 PM Specimen: Urine, Clean Catch Result Value Ref Range Urine Culture No growth (<1,000 CFU/mL) IMAGING: See report Assessment Data: (CAT1) Reviewed 3 or more notes from different specialty or health system (each=1). (CAT1) Reviewed 3 or more labs/studies ordered by another provider not previously counted (each=1, panels count as 1). (CAT1) Ordered 3 or more new labs and/or studies (each=1, panels count as 1). (LOW: 2x CAT1 or independent historian MOD: 3x CAT1 or 1x CAT3 EXTENSIVE: 3x CAT1 and 1x CAT3) Acute, acute on chronic, unstable/uncontrolled chronic problems/diagnoses: Right hip osteoarthritis status post right TKA on 05/27 Orthopedics primary Coronary artery disease Aspirin 81 mg increased to 81 mg twice daily for 30 days postop Continue atorvastatin Hypertension -diet and exercise controlled Obstructive sleep apnea -lost weight status post bariatric surgery no CPAP needed COPD and asthma Rescue inhalers ordered on day of surgery History atrial fibrillation not on anticoagulation therapy Continue ASA twice daily postop Hypothyroidism Continue Synthroid Anxiety and depression Continue Wellbutrin, BuSpar, Xanax 1 mg as needed nightly and 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 Labs in the AM. Home medications addressed and resumed as indicated. PT/OT eval and treat. Discharge planning per ortho. - am labs, replace lytes prn - PT/OT/CM/SW - delirium precautions: increase activity and limit nighttime disturbances - DVT prophylaxis: encourage ambulation Complexity: Acute, complicated injury (MOD). Risk: Admission to hospital-level care was considered or occurred (HIGH). Low risk diagnostic testing or treatment (LOW). Advance Directive: Full Code Anticipated Discharge - Date - 05/28 - Location - home vs home health - Pending the following - PT and OT release, and orthopedic discharge upon medical clearance Total time spent (which include face to face and non face to face encounters) : 55 minutes Toxic drug monitoring/narrow therapeutic index drug monitoring : # Drug name : NA # Route administered : NA # Method of monitoring : NA Extended Emergency Contact Information Primary Emergency Contact: Ellie Hicks Relation: Spouse Motor Builder Assembler needed? No Leah Bella MD Division of Hospitalist Medicine [facility] documented in this encounter [facility] 05-27-2024 Note [facility] 05-27-2024 Note [facility] 05-27-2024 Note [facility] 05-27-2024 Note [facility] 05-27-2024 Note Formatting of this n ote might be different from the original. Patient Choice Patient Name: SOPHIE HICKS Date of : 1965 All Providers Sent Referral Name: [facility] Phone: [phone] Address: [address] [place], [place] [id number] [facility]24 Note Formatting of this n ote might be different from the original. Patient Choice Patient Name: SOPHIE HICKS Date of : 1965 All Providers Sent Referral Name: [facility] Phone: [phone] Address: [facility] [place] [address] [facility] 05-27-2024 Note Formatting of this n ote is different from the original. Start PACC Note Home Health Referral Educated patient on Home Care and services available. Patient offered choice of available HHC and agreeable to PT services with [facility]. Care Types: [facility] Isolation Precautions: No active isolations Social Determinates of Health: Tobacco Use: Low Risk (05/27/2024) Patient History Smoking Tobacco Use: Never Smokeless Tobacco Use: Never Passive Exposure: Not on file Social History Substance and Sexual Activity Alcohol Use Never Social History Substance and Sexual Activity Drug Use Never Does the patient have any financial resource strain? No Does the patient have any food insecurities? No Does the patient have any housing instabilities? No If any of the above is noted as yes - consider a DIRECTOR CARD evaluation once the patient returns home. START PATIENT REGISTRATION INFORMATION Order Information Order Signing Physician: Antony Anderson MD Service Ordered RN ?: No Service Ordered PT ?: Yes Service Ordered OT ?: No Service Ordered ST ?: No Service Ordered DIRECTOR CARD?:No Service Ordered SPECIAL EDUCATION TEACHING ASSISTANT?: No Following Physician: Antony Anderson MD Following Physician Overseeing Physician: Antony Anderson MD (Required for Residents only) Agreeable to Follow? Yes Date/Time of Call 05/27/24 1:41 PM, Spoke with: Donna Care Coordination Same Day SOC?: No Primary Care Physician: WILIAM FERNANDEZ MD Primary Care Physician Primary Care Physician Address: [address] [place] [phone] Visit Instructions: N/A Service Discharge Location Type: Home with Home Care Service Facility Name: N/A Service Floor Facility: N/A Service Room No: N/A Demographics Patient Last Name: Kurt Patient First Name: Sophie Language/Communication Barrier: n/a Service Address: [address] [facility] Service City: [facility] ST: [place] Service ZIP: [address] Service Other phone numbers: Telephone Information: Emergency Contact: Extended Emergency Contact Information Primary Emergency Contact: Ellie Hicks Relation: Spouse Motor Builder Assembler needed? No Admission Information Admit Date: 05/27/2024 Patient status at discharge: Post procedure recovery Admitting Diagnosis: Unilateral primary osteoarthritis, right hip [M16.11] Arthritis of right hip [M16.11] Caregiver Information Caregiver First Name: n/a Caregiver Last Name: n/a Caregiver Relationship to Patient n/a Caregiver Phone Number: n/a Caregiver Notes: N/A [employer] HIGHTECH: HI TECH - [facility] Procedure: Right Total Hip Arthroplasty Date of procedure: 05/27/24 Precautions: Hip Precautions Surgeon: Antony Anderson MD END PATIENT REGISTRATION INFORMATION Pt Home Health goal To increase mobility and decrease pain with mobility, leading to an improvement in quality of life. COVID Status 1. Do you have any upper respiratory symptoms (cough, SOB, Fever)? No 2. Have you been exposed to anyone with COVID-19 Virus? No Answer only if pending or positive for COVID-19? 1. Agreeable to wear PPE at each visit? No 2. Is the hospital supplying them with PPE upon Discharge? No Start PACC Summary General Report/ Additional Comments Wound Care-Keep a Dry dressing on for 7-10 day, if no drainage ok to keep incision open to air. If there is drainage call the office. Discharge Date: 05/28/24 Referral Source-PACC: (Hospital/Unit): [facility] / OR/NONE End PACC Note [facility] 05-27-2024 Note Formatting of this n ote is different from the original. Start PACC Note Home Health Referral Educated patient on Home Care and services available. Patient offered choice of available HHC and agreeable to PT services with [facility] - [facility] Care. Care Types: [facility] Isolation Precautions: No active isolations Social Determinates of Health: Tobacco Use: Low Risk (05/27/2024) Patient History Smoking Tobacco Use: Never Smokeless Tobacco Use: Never Passive Exposure: Not on file Social History Substance and Sexual Activity Alcohol Use Never Social History Substance and Sexual Activity Drug Use Never Does the patient have any financial resource strain? No Does the patient have any food insecurities? No Does the patient have any housing instabilities? No If any of the above is noted as yes - consider a DIRECTOR CARD evaluation once the patient returns home. START PATIENT REGISTRATION INFORMATION Order Information Order Signing Physician: Antony Anderson MD Service Ordered RN ?: No Service Ordered PT ?: Yes Service Ordered OT ?: No Service Ordered ST ?: No Service Ordered DIRECTOR CARD?:No Service Ordered SPECIAL EDUCATION TEACHING ASSISTANT?: No Following Physician: Antony Anderson MD Following Physician Overseeing Physician: Antony Anderson MD (Required for Residents only) Agreeable to Follow? Yes Date/Time of Call 05/27/24 1:41 PM, Spoke with: Donna Care Coordination Same Day SOC?: No Primary Care Physician: WILIAM FERNANDEZ MD Primary Care Physician Primary Care Physician Address: [address] [place] [phone] Visit Instructions: N/A Service Discharge Location Type: Home with Home Care Service Facility Name: N/A Service Floor Facility: N/A Service Room No: N/A Demographics Patient Last Name: Kurt Patient First Name: Sophie Language/Communication Barrier: n/a Service Address: [address] [facility] Service City: [facility] ST: [place] Service ZIP: [address] Service Other phone numbers: Telephone Information: Emergency Contact: Extended Emergency Contact Information Primary Emergency Contact: Ellie Hicks Relation: Spouse Motor Builder Assembler needed? No Admission Information Admit Date: 05/27/2024 Patient status at discharge: Post procedure recovery Admitting Diagnosis: Unilateral primary osteoarthritis, right hip [M16.11] Arthritis of right hip [M16.11] Caregiver Information Caregiver First Name: n/a Caregiver Last Name: n/a Caregiver Relationship to Patient n/a Caregiver Phone Number: n/a Caregiver Notes: N/A [employer] HIGHTECH: HI TECH - FRESH ORTHO Procedure: Right Total Hip Arthroplasty Date of procedure: 05/27/24 Precautions: Hip Precautions Surgeon: Antony Anderson MD END PATIENT REGISTRATION INFORMATION Pt Home Health goal To increase mobility and decrease pain with mobility, leading to an improvement in quality of life. COVID Status 1. Do you have any upper respiratory symptoms (cough, SOB, Fever)? No 2. Have you been exposed to anyone with COVID-19 Virus? No Answer only if pending or positive for COVID-19? 1. Agreeable to wear PPE at each visit? No 2. Is the hospital supplying them with PPE upon Discharge? No Start PACC Summary General Report/ Additional Comments Wound Care-Keep a Dry dressing on for 7-10 day, if no drainage ok to keep incision open to air. If there is drainage call the office. Discharge Date: 05/28/24 Referral Source-PACC: (Hospital/Unit): [facility] / OR/NONE End PACC Note [facility] 05-27-2024 Note Formatting of this n ote is different from the original. Images from the original note were not included. [facility] MAIN OR [address] [place] [id number] Dept: [phone] Loc: [phone] Operative Report Patient Name: Sophie Hicks Date of : 1965 Date of Surgery: 05/27/24 DATE OF SURGERY: 05/27/24 PREOPERATIVE DIAGNOSIS: RIGHT Hip Degenerative Arthritis - M16.11 POSTOPERATIVE DIAGNOSIS: Same PROCEDURE PERFORMED: Primary cementless right total hip arthroplasty, direct anterior approach with Alf robot SURGEON: Antony Anderson MD ASSISTANTS: Matheus YO, Jeremiah PA-Josephine Tesfaye SA ANESTHESIA: Monitored Anesthesia Care , Spinal Anaesthesia, and Quadratus Lumborum Block Post-op INTRAVENOUS FLUIDS: 1,500 mL ESTIMATED BLOOD LOSS: 300 mL DRAIN: None. COMPLICATIONS: Patient tolerated the procedure well without anesthetic or surgical/operative complications. COMPONENTS: Surprise Trident 2 acetabular component size 56 mm, 36 neutral highly crosslinked polyethylene acetabular liner, a 36 -2.5 Biolox delta ceramic femoral head, Fausto Insignia femoral component size 6 high offset, two divergent acetabular screws INTRAOPERATIVE FINDINGS: The intra-operative finding confirmed the clinical and radiographic finding of end-stage osteoarthritis characterized by complete bone loss on the femoral head and acetabulum with presence of osteophytes. TISSUE REMOVED OR ALTERED: Femoral head and acetabular reamings removed via standard resection. COMORBIDITIES: No date: Abdominal pain No date: Atrial fibrillation (HCC) Comment: transient; resolved No date: Awareness under anesthesia Comment: during dental surgery at dentist office No date: Back pain 01/29/2015: Benign essential HTN No date: Blood circulation, collateral No date: CAD (coronary artery disease) Comment: mild - dx on cath - neg stress No date: Cerebral artery occlusion with cerebral infarction ([facility]) Comment: patient states not ever confirmed as stoke No date: Chronic kidney disease No date: COPD (chronic obstructive pulmonary disease) ([facility]) No date: COVID-19 Comment: 05/0309/25/2020: COVID-19 vaccine series completed Comment: Moderna 12/04/2020: COVID-19 vaccine series completed Comment: BOOSTER 12/25/2004: CS (cervical spondylosis) Comment: CERVICAL SPINE DJD No date: Difficulty sleeping No date: Dizziness No date: GERD (gastroesophageal reflux disease) 06/21/2013: History of colonic polyps Comment: repeat 2019 No date: Hyperlipidemia No date: Hypothyroidism 08/15/2014: Insomnia No date: Joint pain, hip No date: Joint pain, knee No date: Memory difficulties No date: Muscle weakness 09/30/2020: Peripheral polyneuropathy No date: Rheumatoid arthritis (HCC) No date: Shortness of breath at rest No date: Sleep apnea Comment: resolved with weight loss No date: Snoring No date: SOBOE (shortness of breath on exertion) 03/19/2021: Type 2 diabetes mellitus ([facility]) Comment: resolved after weight loss SPECIMEN: None OPERATIVE NOTE ADDENDUM: 1) The first-real estate assistant was critical to all steps of the operation, including retraction and leg stabilization during exposure and bone preparation, as well as the deep and superficial wound closure. I understand that section 1842(b)(7)(D) of the Social Security Act generally prohibits Medicare physician fee schedule payment for the services of assistants at surgery in teaching hospitals when qualified residents are available to furnish such services. I certify that the services for which payment is claimed were medically necessary and that no qualified resident was available to perform the services. I further understand that these services are subject to post-payment review by the Medicare carrier. 2) Operative note addendum for unusual increased surgical complexity for obesity greater than BMI 35 (BMI 36). This particular patient's condition and surgery satisfies the criteria for unusual and increased surgical complexity and resulted in significantly increased difficulty for this surgical procedure. Due to morbid obesity the procedure required additional surgical dissection, additional assistance with tissue retraction, and more complicated exposure techniques to satisfactorily perform the procedure. In addition, the energy expenditure was substantially increased for the surgeon and assistants. These factors increased the complexity, surgical risks, and duration of the procedure. The duration of this procedure in this patient was increased by approximately 40% due to the above-mentioned factors. HISTORY: The patient has progressive and debilitating hip pain secondary to end-stage osteoarthritis, supported by clinical and radiographic evidence and has failed nonoperative management. The patient was deemed appropriate for a total hip arthroplasty. Risks, benefits ,and alternatives to surgical treatment were discussed in detail with the patient and the patient wished to proceed with the total hip arthroplasty. The patient was seen and thoroughly evaluated by a medical social consultant preoperatively and was optimized for surgical intervention. SURGICAL PROCEDURE: Prior to initiation of the operative procedure a surgical time-out was taken and the patient's name, medical record, number, [id number], and operative side was verified with the surgical consent form. Additionally it was verified that the appropriate margarita-operative antibiotic administration was completed, as well as that radiographs were available and the correct operative instrumentation and implants were available. After routine preparation and draping of the patient in the total joint operating room on a regular table, a direct anterior approach was made to the hip joint. The skin and subcutaneous tissues were incised. Electrocautery was utilized to maintain hemostasis along the skin edges. The subcutaneous fat was bluntly dissected. Subsequently the tensor fascia yoni muscle was visualized and the medial and lateral borders identified. The medial border was identified by the fat strip that lies just medial to the muscle. The tip of the knife blade was used to gently incise the TFL fascia at the junction of the medial third and middle third of the TFL muscle belly. Care was taken to ensure that the musculature was not damaged at the area of the fascial incision. Finger dissection was used to locate the anterior femoral neck. A blunt Cobra retractor was then placed in the split at the level of the piriformis fossa. Subsequently the plane between the TFL and fascia was expanded distally to the inferior aspect of the wound. A sharp Hohmann retractor was placed at the level of the vastus ridge retracting the mid aspect of the TFL. The lateral circumflex vessels were then visualized and cauterized. The interval between the rectus and the anterior hip capsule at the level of the inferior neck was completed and a Pollock and then blunt Cobra retractor was placed. Subsequently the interval between the anterior capsule and the rectus was developed with electrocautery and completed with careful blunt dissection. A Pollock was used to elevate the soft tissues above the mid point of the femoral head, allowing a sharp curved Hohmann retractor to be placed safely. No muscle or superficial soft tissues were interposed under this retractor. The anterior capsule was split in a T formation from the superolateral neck to the inferomedial neck and a capsulectomy completed. The saddle of the proximal femur was identified. The electrocautery was used to louisa the sites of the femoral neck cut based on pre-op measurement. An osteotomy was completed to remove a wafer of bone, following which a power corkscrew was inserting into the remaining femoral head to extract it from the acetabulum. Then, we turned attention to placement of crest pins on the ipsilateral hip. A small incision in line with anterior crest was made. Bony window identified and pins were placed and array assembled, positioned, and tightened. Good fixation noted. A sharp broad Cobra was placed behind the posterior acetabular wall. Then, the inferior capsule was released over a tonsil. A blunt narrow Hohmann was placed under the transverse acetabular ligament. The acetabular labrum was excised with a Tara and electrocautery. We then acquired our acetabular points with a probe according to protocol. An osteotome was utilized to remove the inferior and medial osteophytes after registration to allow ease of passage of the reamer. The acetabulum was subsequently reamed under robotic guidance according to our pre-operative plan. Acetabulum was debrided and cleared of any interposing debris. The shell was impacted into place with the robotic arm with excellent stability. Two screws were placed in the posterior superior quadrant. A highly crosslinked polyethylene liner was inserted into the shell, assuring it locked circumferentially into the shell. The medial and posterior retractors were then removed and the leg brought into adduction and external rotation. The anterior retractor was then removed and a double-footed Saini retractor placed at the level of the calcar. Continue release off of calcar was completed for improved visualization and mobilization of the femur. The superolateral capsule was identified and then released. Subsequently a sharp curved Luiz retractor was placed over the greater trochanter to allow for elevation of the proximal femur. Leg was externally rotated for further visualization. The femoral neck cut was clearly identified. A rongeur was used to remove lateral neck. A small blunt canal finder was used to establish the canal. A box osteotome was utilized to remove remaining lateral femoral neck. A starter broach used to start working in a medial to lateral direction for intimate medial-lateral fit and fill of the stem. The femur was then broached in a sequential manner, lateralizing as necessary. The femoral canal was shaped to accept the appropriate sized hip stem, ensuring adequate axial and rotational stability. Good medial/lateral and anteroposterior fit was appreciated. Trial head and neck components were placed and stability, leg length, and range of motion assessed. The component position, offset, and leg length were confirmed with fluoroscopy. The final stem was impacted into place, ensuring no fracture of the calcar. Final femoral head was chosen and impacted onto a clean/dry taper. Trial and final reduction of the hip revealed good leg length, stability, and range of motion. The wound was irrigated with a sterile dilute betadine solution and sterile saline. The wound was inspected for active bleeding and was dry. The wound was closed in layers using #1 Stratafix suture in running fashion for the fascial layer. 0-Vicryl for deep adipose approximation, 2-0 Vicryl utilized for the subcutaneous closure. 3-0 monocryl subcuticular suture, Dermabond, and a sterile dressing was applied. Post-operative Plan: WBAT with assistive device Avoid extremes of motion DVT Proph 24 hrs abx Follow-up in 4 weeks [facility] 05-27-2024 Note Formatting of this n ote is different from the original. Images from the original note were not included. [facility] MA[facility] OR [address] [facility] [address] Dept: [phone] Loc: [phone] Operative Report Patient Name: Sophie Hicks Date of : 1965 Date of Surgery: 05/27/24 DATE OF SURGERY: 05/27/24 PREOPERATIVE DIAGNOSIS: RIGHT Hip Degenerative Arthritis - M16.11 POSTOPERATIVE DIAGNOSIS: Same PROCEDURE PERFORMED: Primary cementless right total hip arthroplasty, direct anterior approach with Alf robot SURGEON: Antony Anderson MD ASSISTANTS: Matheus YO, Jeremiah YO, Josephine GREGORY ANESTHESIA: Monitored Anesthesia Care , Spinal Anaesthesia, and Quadratus Lumborum Block Post-op INTRAVENOUS FLUIDS: 1,500 mL ESTIMATED BLOOD LOSS: 300 mL DRAIN: None. COMPLICATIONS: Patient tolerated the procedure well without anesthetic or surgical/operative complications. COMPONENTS: Fausto Trident 2 acetabular component size 56 mm, 36 neutral highly crosslinked polyethylene acetabular liner, a 36 -2.5 Biolox delta ceramic femoral head, Surprise Insignia femoral component size 6 high offset, two divergent acetabular screws INTRAOPERATIVE FINDINGS: The intra-operative finding confirmed the clinical and radiographic finding of end-stage osteoarthritis characterized by complete bone loss on the femoral head and acetabulum with presence of osteophytes. TISSUE REMOVED OR ALTERED: Femoral head and acetabular reamings removed via standard resection. COMORBIDITIES: No date: Abdominal pain No date: Atrial fibrillation (HCC) Comment: transient; resolved No date: Awareness under anesthesia Comment: during dental surgery at dentist office No date: Back pain 01/29/2015: Benign essential HTN No date: Blood circulation, collateral No date: CAD (coronary artery disease) Comment: mild - dx on cath - neg stress No date: Cerebral artery occlusion with cerebral infarction (HCC) Comment: patient states not ever confirmed as stoke No date: Chronic kidney disease No date: COPD (chronic obstructive pulmonary disease) (HCC) No date: COVID-19 Comment: 05/0309/25/2020: COVID-19 vaccine series completed Comment: Moderna 12/04/2020: COVID-19 vaccine series completed Comment: BOOSTER 12/25/2004: CS (cervical spondylosis) Comment: CERVICAL SPINE DJD No date: Difficulty sleeping No date: Dizziness No date: GERD (gastroesophageal reflux disease) 06/21/2013: History of colonic polyps Comment: repeat 2019 No date: Hyperlipidemia No date: Hypothyroidism 08/15/2014: Insomnia No date: Joint pain, hip No date: Joint pain, knee No date: Memory difficulties No date: Muscle weakness 09/30/2020: Peripheral polyneuropathy No date: Rheumatoid arthritis (HCC) No date: Shortness of breath at rest No date: Sleep apnea Comment: resolved with weight loss No date: Snoring No date: SOBOE (shortness of breath on exertion) 03/19/2021: Type 2 diabetes mellitus (HCC) Comment: resolved after weight loss SPECIMEN: None OPERATIVE NOTE ADDENDUM: 1) The first-real estate assistant was critical to all steps of the operation, including retraction and leg stabilization during exposure and bone preparation, as well as the deep and superficial wound closure. I understand that section 1842(b)(7)(D) of the Social Security Act generally prohibits Medicare physician fee schedule payment for the services of assistants at surgery in teaching hospitals when qualified residents are available to furnish such services. I certify that the services for which payment is claimed were medically necessary and that no qualified resident was available to perform the services. I further understand that these services are subject to post-payment review by the Medicare carrier. 2) Operative note addendum for unusual increased surgical complexity for obesity greater than BMI 35 (BMI 36). This particular patient's condition and surgery satisfies the criteria for unusual and increased surgical complexity and resulted in significantly increased difficulty for this surgical procedure. Due to morbid obesity the procedure required additional surgical dissection, additional assistance with tissue retraction, and more complicated exposure techniques to satisfactorily perform the procedure. In addition, the energy expenditure was substantially increased for the surgeon and assistants. These factors increased the complexity, surgical risks, and duration of the procedure. The duration of this procedure in this patient was increased by approximately 40% due to the above-mentioned factors. HISTORY: The patient has progressive and debilitating hip pain secondary to end-stage osteoarthritis, supported by clinical and radiographic evidence and has failed nonoperative management. The patient was deemed appropriate for a total hip arthroplasty. Risks, benefits ,and alternatives to surgical treatment were discussed in detail with the patient and the patient wished to proceed with the total hip arthroplasty. The patient was seen and thoroughly evaluated by a medical social consultant preoperatively and was optimized for surgical intervention. SURGICAL PROCEDURE: Prior to initiation of the operative procedure a surgical time-out was taken and the patient's name, medical record, number, [id number], and operative side was verified with the surgical consent form. Additionally it was verified that the appropriate margarita-operative antibiotic administration was completed, as well as that radiographs were available and the correct operative instrumentation and implants were available. After routine preparation and draping of the patient in the total joint operating room on a regular table, a direct anterior approach was made to the hip joint. The skin and subcutaneous tissues were incised. Electrocautery was utilized to maintain hemostasis along the skin edges. The subcutaneous fat was bluntly dissected. Subsequently the tensor fascia yoni muscle was visualized and the medial and lateral borders identified. The medial border was identified by the fat strip that lies just medial to the muscle. The tip of the knife blade was used to gently incise the TFL fascia at the junction of the medial third and middle third of the TFL muscle belly. Care was taken to ensure that the musculature was not damaged at the area of the fascial incision. Finger dissection was used to locate the anterior femoral neck. A blunt Cobra retractor was then placed in the split at the level of the piriformis fossa. Subsequently the plane between the TFL and fascia was expanded distally to the inferior aspect of the wound. A sharp Hohmann retractor was placed at the level of the vastus ridge retracting the mid aspect of the TFL. The lateral circumflex vessels were then visualized and cauterized. The interval between the rectus and the anterior hip capsule at the level of the inferior neck was completed and a Pollock and then blunt Cobra retractor was placed. Subsequently the interval between the anterior capsule and the rectus was developed with electrocautery and completed with careful blunt dissection. A Pollock was used to elevate the soft tissues above the mid point of the femoral head, allowing a sharp curved Hohmann retractor to be placed safely. No muscle or superficial soft tissues were interposed under this retractor. The anterior capsule was split in a T formation from the superolateral neck to the inferomedial neck and a capsulectomy completed. The saddle of the proximal femur was identified. The electrocautery was used to louisa the sites of the femoral neck cut based on pre-op measurement. An osteotomy was completed to remove a wafer of bone, following which a power corkscrew was inserting into the remaining femoral head to extract it from the acetabulum. Then, we turned attention to placement of crest pins on the ipsilateral hip. A small incision in line with anterior crest was made. Bony window identified and pins were placed and array assembled, positioned, and tightened. Good fixation noted. A sharp broad Cobra was placed behind the posterior acetabular wall. Then, the inferior capsule was released over a tonsil. A blunt narrow Hohmann was placed under the transverse acetabular ligament. The acetabular labrum was excised with a Tara and electrocautery. We then acquired our acetabular points with a probe according to protocol. An osteotome was utilized to remove the inferior and medial osteophytes after registration to allow ease of passage of the reamer. The acetabulum was subsequently reamed under robotic guidance according to our pre-operative plan. Acetabulum was debrided and cleared of any interposing debris. The shell was impacted into place with the robotic arm with excellent stability. Two screws were placed in the posterior superior quadrant. A highly crosslinked polyethylene liner was inserted into the shell, assuring it locked circumferentially into the shell. The medial and posterior retractors were then removed and the leg brought into adduction and external rotation. The anterior retractor was then removed and a double-footed Saini retractor placed at the level of the calcar. Continue release off of calcar was completed for improved visualization and mobilization of the femur. The superolateral capsule was identified and then released. Subsequently a sharp curved Luiz retractor was placed over the greater trochanter to allow for elevation of the proximal femur. Leg was externally rotated for further visualization. The femoral neck cut was clearly identified. A rongeur was used to remove lateral neck. A small blunt canal finder was used to establish the canal. A box osteotome was utilized to remove remaining lateral femoral neck. A starter broach used to start working in a medial to lateral direction for intimate medial-lateral fit and fill of the stem. The femur was then broached in a sequential manner, lateralizing as necessary. The femoral canal was shaped to accept the appropriate sized hip stem, ensuring adequate axial and rotational stability. Good medial/lateral and anteroposterior fit was appreciated. Trial head and neck components were placed and stability, leg length, and range of motion assessed. The component position, offset, and leg length were confirmed with fluoroscopy. The final stem was impacted into place, ensuring no fracture of the calcar. Final femoral head was chosen and impacted onto a clean/dry taper. Trial and final reduction of the hip revealed good leg length, stability, and range of motion. The wound was irrigated with a sterile dilute betadine solution and sterile saline. The wound was inspected for active bleeding and was dry. The wound was closed in layers using #1 Stratafix suture in running fashion for the fascial layer. 0-Vicryl for deep adipose approximation, 2-0 Vicryl utilized for the subcutaneous closure. 3-0 monocryl subcuticular suture, Dermabond, and a sterile dressing was applied. Post-operative Plan: WBAT with assistive device Avoid extremes of motion DVT Proph 24 hrs abx Follow-up in 4 weeks [facility] 05-27-2024 [facility] Dis[facility] e lukas Rico PA-C - 05/27/2024 11:52 AM EST Images from the original note were not included. Dr. Antony Anderson Adult Hip and Knee Reconstruction [phone] Total Hip Discharge Instruction Physical Therapy Physical Therapy should be arranged for you prior to your discharge. Therapy should begin 1 or 2 days after surgery and continue 1-3 times a week for a month. Do the exercises at home on the days you do not see a therapist. Dressing Your wound will be covered by a dressing after surgery. It should usually be removed after 10 days. You can shower as long as there is no drainage from the wound. After the dressing is removed it is not recommended to apply any cream, ointment or lotion to the wound unless specifc instructions are given by your surgeon. Most of the time, your stitches will be under the skin and will dissolve of their own. If you have ana or external stitches they can be removed 10 days after surgery as long as there is no drainage. If the wound is draining, the dressing should be changed daily. The wound should be dry and without drainage by about 7 days postoperative. If there is persistent drainage from the wound after this time period, you should call our office immediately. If there is worsening redness around the incision, you should also call the office immediately. These may be signs of a superficial or deep wound infection and you may have to return to the office for an evaluation by one of our staff. Common concerns after hip replacement surgery include swelling and bruising. These can be quite signifcant in nature and can appear anywhere from the thigh to the toes. These are typically worse at night which can contribute to trouble sleeping comfortably for more than one to two hours at a time. Activity You will be using an assistive device (walker, crutches, or cane). Your physical therapist will help you with this. Most patients are able to get in and out of bed, use the rest room, and go up and down stairs when they go home. We d like you to get up and walk every hour after surgery. For the first 1-2 weeks you will be walking with a walker or two crutches. After that, you can start using a cane. Preventing Postoperative Hip Dislocations Dislocations are rare, but if they occur they most often occur the first 3 months after surgery. Before surgery, the physical therapist begins teaching you special precautions and how to avoid dislocation. After surgery, everyone will be reminding you not to bend the hip too much, not to twist at the waist, and to avoid turning your leg in or out.patients hip joints are so stable after surgery that they do not have dislocation precautions. If you are one of these patients, the therapist will tell you not to worry about dislocation but you should still avoid extreme bending and twisting. Again, your therapist will go over this after surgery. Bathing Your dressing is waterproof. You may take a shower but not a bath. Precautions It is very common to have swelling and bruising in the thigh, lower leg and foot after surgery. Elevating your leg, doing ankle pump exercises, and using ice packs will help. Call us if the swelling does not subside overnight. Call for a temperature over 101. Take the pain medications as needed for pain. Pain pills can cause constipation. Use over the counter stool softeners like Colace to avoid constipation. If Colace is not effective use a gentle over the counter laxative such as Miralx Please refer to your medication sheet for more information regarding any prescriptions you have been given to take after surgery. Follow up office visit The Doctor would like see you in 4 weeks. If the followup appointment is not already made the office will call within 2 weeks. Please avoid any other surgery, procedure or dental procedure until cleared by Dr. Anderson. Common Questions About Hip Replacement Question: How long can I expect to have pain after surgery? Answer: The time varies for each patient. Many patients report that there is very little pain right after surgery, but postoperative soreness may continue for 3 - 4 weeks. Question. How long until bone ingrowth occurs? Answer. Bone ingrowth occurs between 6 weeks and 1 year. Question. How long after surgery will I have to limit weight bearing on my leg? Answer. The amount of weight you are allowed to put on your leg varies from full weight bearing to just the weight of your foot. Several surgical factors are considered in making this decision and your surgeon will inform you of your weight bearing status following the procedure. Most patients are cleared to be full weightbearing, as tolerated. Question. Why do I have to take a blood thinner after surgery and how long will this continue? Answer. A blood thinning medicine is recommended to prevent blood clots and is usually discontinued after your first follow-up appointment. Question: When can I resume sexual activities? Answer. You can resume sexual activity 3 - 6 weeks after surgery. The physical therapist feliciano cobos. Question: Why does the skin feel funny around my incision? Answer: The nerves in the skin cross the front of the hip in an inside-out direction. When an incision is made on the hip, these tiny nerves are divided and the skin on the outside will feel fuzzy or numb. This sensation will lessen with time and is normal for all patients with hip replacement surgery. Question: Why is my leg discolored? Answer: You may develop some discoloration (like a bruise) in the leg. This discoloration, which may extend to the hip or ankle, will slowly disappear. Question: What about cocoa butter and vitamin E oil? Answer: Do not use either of these until after your four week postoperative visit. Ask for clearance to use during that visit. Question: A stitch is sticking out. What do I do? Answer: We often suture the skin from underneath to reduce scarring. The knot at the end of the stitch sometimes will protrude from the skin. Redness and a small amount of drainage may appear. Cleanse the skin with peroxide. Please notify your surgeon s of office. Question: When can I drive my car? Answer: Usually after 4 weeks. A patient s decision to drive sooner is a personal decision related to their mobility and pain control. You cannot drive while you are taking narcotic pain medicine such as [place], Percocet, Hydrocodone or Oxycodone. Question: When can I go in the swimming pool? Answer: Ordinarily, patients may resume pool activities after the first follow-up visit. Be sure to check with the surgeon or fellow at that time. Question. When can I start playing tennis, ski or golf? Answer. Active sports are generally not resumed until 3 - 6 months after surgery.This is to allow for bone ingrowth of your new hip and muscle strengthening. Question. When will I be able to return to work? Answer. This depends on the type of work you do as well as several other factors. This yaa an individual basis and you should discuss with your surgeon. Eagle Boles RN - 05/27/2024 1:49 PM EST Discharging to Facility/ Agency Name: [facility] Address: [address] [place] [address] documented in this encounter [facility] 05-27-2024 Attending History and physical note H&P reviewed. The patient was examined and there are no changes to the H&P. Source Note - Sherlyn Faria PA-C - 05/24/2024 1:00 PM EST Images from the original note were not included. Comprehensive PreSurgical History and Physical ? Name: Sophie Hicks : 1965 (Age-58 y.o.) Date of Service: Pt seen/examined on 05/24/2024 Procedure Information Date/Time: 05/27/24 1230 Procedure: RIGHT TOTAL HIP ARTHROPLASTY (Right: Hip) - 60MIN Location: [address] Operating Room Surgeons: Antony Anderson MD Chief Complaint: Hip pain ASSESSMENT/PLAN: Patient is considered intermediate risk for this intermediate risk procedure/surgery noted above () with no reducible risk factors. Based on the above evaluation, the benefits of the planned procedure likely exceed the risks. The patient is medically optimized to proceed with the planned procedure without any further cardiopulmonary testing. 1) Right hip osteoarthritis Managed per surgery 2) CAD, mild -based on angiogram done in 2013 at [facility] S/p cardiac cath, denies stents Neg stress in the past Taking asa, statin Labs, EKG done Follows with cardio Dr Vences OV 05/13/24 3) HTN Typically controlled Not on meds anymore Follows with PCP Labs and EKG done BP Readings from Last 3 Encounters: 05/24/24 124/83 05/13/24 124/82 05/11/24 100/70 4) DEMI Resolved after bariatric surgery, no cpap now I would consider higher level of care (continuous pulse ox) with this patient due to DEMI and increased risks 5) COPD Asthma Per patient, feels at baseline Using daily inhaler, rescue inhaler several times a week Continue inhalers day of surgery Labs, EKG done 6) CKD3 Labs done Follows with PCP, nephrology Close monitoring and management of fluid volume and electrolytes advised. Avoid nephrotoxic agents 7) Hx Atrial Fibrillation, transient Taking asa Follows with pcp EKG and labs done 8) CVA ?TIA Occurred in ~2020 or 2021 Denies residual Taking asa, statin Follows with PCP 9) Hypothyroidism Currently taking synthroid Follows with PCP 10) Anxiety Depression Taking Wellbutrin, buspar, xanax prn, zoloft Follows with PCP 11) GERD Stable. Currently taking PPI Avoidance of triggers encouraged 12) BPH Taking flomax Follows with urology 13) Chronic pain Currently taking percocet prn Follow with pcp Do you have a history of chronic opioid use? CHRONIC NARCOTIC USAGE: Yes - Narcotics Used: percocet past year The patient meets the criteria for [facility] total joint replacement protocol. Visit Type: Pre-Admission Testing Visit Labs Ordered: NO - COMPLETE PRIOR TO PAT VISIT Sleep Referral Ordered: NO - NEGATIVE SCREEN PER SLEEP REFERRAL PROTOCOL Cardio clearance: Total time spent (which include face to face and non face to face encounters) : 45 minutes Toxic drug monitoring/narrow therapeutic index drug monitoring : # Drug name : n/a # Route administered : n/a # Method of monitoring : n/a PAT Protocol referenced includes: 1. Anesthesia Lab Protocol Orders 2. Perioperative Cardiovascular Risk Assessment 3. Anesthesia Assessment 4. Pain Assessment and Acute Pain Service Consult (if appropriate) 5. Medical Clearance/Consult from Internal Medicine ([facility]) 6. Shower/Wash Order (for designated surgeries) 7. DEMI Screen and Sleep Clinic Referral (if appropriate) History Of Present Illness: 58 y.o. male who presents with chief complaint mentioned above. Per surgeon's note This patient has end-stage degenerative joint disease clinically and radiographically. The affected hip is severely impacting the patient's quality of life and causing them to decrease their daily activities. They have tried non-operative treatment including analgesics, an exercise program, and activity modification, but the symptoms have persisted for beyond three months. Pt has seen the surgeon and elected for above procedure. DM was prior to bariatric surgery, stable now, no meds Denies Hx of CHF, FL, DVT/PE Hx problems with anesthesia? - awareness under anesthesia during dental implant surgery Motion sickness sometimes upper and lower permanent implants Past Medical History: Past Medical History: No date: Abdominal pain No date: Atrial fibrillation (HCC) Comment: transient; resolved No date: Awareness under anesthesia Comment: during dental surgery at dentist office No date: Back pain 01/29/2015: Benign essential HTN No date: Blood circulation, collateral No date: CAD (coronary artery disease) Comment: mild - dx on cath - neg stress No date: Cerebral artery occlusion with cerebral infarction ([facility]) Comment: patient states not ever confirmed as stoke No date: Chronic kidney disease No date: COPD (chronic obstructive pulmonary disease) ([facility]) No date: COVID- Comment: 05/0309/25/2020: COVID-19 vaccine series completed Comment: Moderna 12/04/2020: COVID-19 vaccine series completed Comment: BOOSTER 12/25/2004: CS (cervical spondylosis) Comment: CERVICAL SPINE DJD No date: Difficulty sleeping No date: Dizziness No date: GERD (gastroesophageal reflux disease) 06/21/2013: History of colonic polyps Comment: repeat 2019 No date: Hyperlipidemia No date: Hypothyroidism 08/15/2014: Insomnia No date: Joint pain, hip No date: Joint pain, knee No date: Memory difficulties No date: Muscle weakness 09/30/2020: Peripheral polyneuropathy No date: Rheumatoid arthritis ([facility]) No date: Shortness of breath at rest No date: Sleep apnea Comment: resolved with weight loss No date: Snoring No date: SOBOE (shortness of breath on exertion) 03/19/2021: Type 2 diabetes mellitus ([facility]) Comment: resolved after weight loss Past Surgical History: Past Surgical History: No date: APPENDECTOMY 12/03/2021: BARIATRIC SURGERY Comment: Dr. Trevino 12/17/2013: CARDIAC CATHETERIZATION Comment: NORMAL CORONARY ARTERIES AND LVEF. No date: COLONOSCOPY 2020: COLONOSCOPY 10/26/2020: CYSTOSCOPY 11/19/2020: CYSTOSCOPY 09/16/2023: CYSTOSCOPY 03/02/2023: EGD (HISTORICAL) No date: NECK SURGERY Comment: Posterior cervical fusion 09/23/2023: PANNICULECTOMY (HISTORICAL) No date: ROTATOR CUFF REPAIR; Bilateral Comment: 2023 both surgeries 01/24/2021: UPPER GASTROINTESTINAL ENDOSCOPY Comment: Dr. Cabello Medications Prior to Admission: Current Outpatient Medications: ALPRAZolam (Xanax) 1 MG tablet, Take 1 mg by mouth Nightly., Disp: , Rfl: aspirin 81 MG EC tablet, Take 81 mg by mouth daily., Disp: , Rfl: atorvastatin (Lipitor) 80 MG tablet, Take 80 mg by mouth Nightly., Disp: , Rfl: baclofen (Lioresal) 10 MG tablet, Take 10 mg by mouth 2 times daily., Disp: , Rfl: buPROPion XL (Wellbutrin XL) 150 MG 24 hr tablet, Take 150 mg by mouth daily., Disp: , Rfl: busPIRone (Buspar) 10 MG tablet, Take 10 mg by mouth 2 times daily., Disp: , Rfl: dicyclomine (Bentyl) 10 MG capsule, Take 10 mg by mouth in the morning and 10 mg at noon and 10 mg in the evening and 10 mg before bedtime., Disp: , Rfl: Emollient (Aquaphor Advanced Therapy) ointment, apply to affected area up to four times a day, Disp: , Rfl: finasteride (Proscar) 5 MG tablet, Take 1 tablet (5 mg) by mouth daily. Do not crush, chew, or split., Disp: 90 tablet, Rfl: 3 fluticasone (Flonase) 50 MCG/ACT nasal spray, Administer 1 spray into each nostril daily., Disp: , Rfl: Fluticasone-Salmeterol (Advair Diskus) 250-50 MCG/ACT aerosol powder , Inhale 1 puff 2 times daily., Disp: , Rfl: gabapentin (Neurontin) 600 MG tablet, Take 600 mg by mouth 3 times daily., Disp: , Rfl: levothyroxine (Synthroid, Levoxyl) 75 MCG tablet, Take 1 tablet by mouth every morning (before breakfast)., Disp: , Rfl: lidocaine (Lidoderm) 5 % patch, Apply 1 patch topically daily., Disp: , Rfl: Multiple Vitamins-Minerals (MULTIVITAMIN ADULTS 50+ PO), Take 1 tablet by mouth daily., Disp: , Rfl: ondansetron (Zofran) 4 MG tablet, TAKE 1 TABLET BY MOUTH 3 TIMES DAILY NEEDED FOR NAUSEA & VOMITING NEEDED, Disp: , Rfl: oxyCODONE-acetaminophen (Percocet) 5-325 MG tablet, every 8 hours as needed., Disp: , Rfl: pantoprazole (ProtoNix) 40 MG EC tablet, Take 1 tablet (40 mg) by mouth daily., Disp: 30 tablet, Rfl: 5 psyllium (Metamucil) 58.6 % powder, Take 5.12 g (3 g of fiber) by mouth 2 times daily., Disp: 283 g, Rfl: 0 sertraline (Zoloft) 50 MG tablet, Take 50 mg by mouth daily., Disp: , Rfl: sildenafil (Viagra) 100 MG tablet, TAKE 1 TAB(S) ORALLY DIRECTED 90 DAYS NOT COVERED BY MEDICARE D, Disp: , Rfl: tadalafil (Cialis) 5 MG tablet, Take 1 tablet (5 mg) by mouth daily., Disp: 90 tablet, Rfl: 3 tamsulosin (Flomax) 0.4 MG 24 hr capsule, Take 1 capsule (0.4 mg) by mouth daily., Disp: 90 capsule, Rfl: 3 tiZANidine (Zanaflex) 2 MG tablet, Take 2 mg by mouth 2 times daily as needed., Disp: , Rfl: traMADol (Ultram) 50 MG tablet, every 8 hours., Disp: , Rfl: Ventolin HFA 108 (90 Base) MCG/ACT inhaler, Inhale 2 puffs every 6 hours as needed., Disp: , Rfl: CHRONIC NARCOTIC USAGE: Yes - Narcotics Used: percocet from pcp Allergies: Iodinated contrast media and Nsaids If patient has opioid allergy, is it okay to take Acetaminophen: N/A Social History: TOBACCO: reports that he has never smoked. He has never used smokeless tobacco. ETOH: reports no history of alcohol use. Social History Substance and Sexual Activity Drug Use Never Family History: Family History Problem Relation Name Age of Onset Cancer Mother Kerri hicks Osteoarthritis Mother Kerri hicks Lung cancer Mother Kerri hicks smoker Coronary artery disease Other REVIEW OF SYSTEMS: Review of Systems Constitutional: Negative for chills and fever. Respiratory: Negative for shortness of breath. Cardiovascular: Negative for chest pain. Pertinent positives as noted in the HPI. Physical Exam: Physical Exam Constitutional: General: He is awake. He is not in acute distress. Appearance: Normal appearance. HENT: Head: Normocephalic and atraumatic. Eyes: Extraocular Movements: Extraocular movements intact. Conjunctiva/sclera: Conjunctivae normal. Cardiovascular: Rate and Rhythm: Normal rate and regular rhythm. Heart sounds: Normal heart sounds. Pulmonary: Effort: Pulmonary effort is normal. Breath sounds: Normal breath sounds. Abdominal: Palpations: Abdomen is soft. Musculoskeletal: General: Normal range of motion. Cervical back: Normal range of motion. Skin: General: Skin is warm and dry. Neurological: General: No focal deficit present. Mental Status: He is alert and oriented to person, place, and time. Psychiatric: Mood and Affect: Mood normal. Behavior: Behavior normal. Behavior is cooperative. Vitals: Vitals Value Taken Time BP 124/83 05/24/24 1248 Temp 37 C (98.6 F) 05/24/24 1248 Pulse 71 05/24/24 1248 Resp 15 05/24/24 1248 SpO2 99 % 05/24/24 1248 BP 124/83 Pulse 71 Temp 37 C (98.6 F) (Temporal) Resp 15 Ht 1.88 m (6' 2) Wt 130 kg (286 lb) SpO2 99% BMI 36.72 kg/m Labs: Lab Results Component Value Date WBC 3.9 05/17/2024 HGB 11.7 (L) 05/17/2024 HCT 35.9 (L) 05/17/2024 MCV 88.4 05/17/2024 PLT 116 (L) 05/17/2024 Lab Results Component Value Date NA 138 10/02/2023 K 3.7 10/02/2023 CL 104 10/02/2023 CO2 30 05/17/2024 BUN 13 05/17/2024 CREATININE 1.17 05/17/2024 GLUCOSE 88 05/17/2024 CALCIUM 8.4 (L) 05/17/2024 PROT 6.2 05/17/2024 ALKPHOS 56 05/17/2024 AST 20 05/17/2024 ALT 13 05/17/2024 EGFR 71 05/17/2024 GLOB 2.1 05/17/2024 Roderick's Simple Cardiac Risk Index: Interpretation: 0 Points Class I 0.5% 1 Point Class II 1.3% 2 Points Class III 3.6% 3+ Points Class IV 9.1% METS >4 METS (Able to climb a flight of stairs with no chest pain or shortness of breath): Yes Walk indoors, such as around the house (1.75 METs), Do light work around the house, such as dusting or washing dishes (2.70 METs), Take care of self, that is eating, dressing, bathing, using the toilet (2.75 METs), Do moderate work around the house such as vacuuming, sweeping floors, or carrying in groceries (3.50 METs), Do yardwork, such as raking leaves, weeding,or pushing a power mower (4.50 METs), Climb a flight of stairs or walk up a hill (5.50 METs) PAT Pain Score: Pain Score: 9 Postop Pain Management Plan (Pain consult ordered?): Pain score >6 in PAT - Pain consult recommended, will defer consult to surgical team ? EKG: Done Encounter Date: 05/13/24 ECG 12 lead - CLINIC PERFORMED Narrative Sinus Rhythm WITHIN NORMAL LIMITS ECHO and EF: No components found for: LVEF, LVEFMODE Last Echo 10/02/23 Left Ventricle: Left ventricle size is normal. Mildly increased wall thickness. Normal left ventricular systolic function. EF by 2D Simpsons Biplane is 70%. Normal wall motion. Right Ventricle: Right ventricle size is normal. Normal systolic function. No significant valvular abnormalities. 07/23/20 SUMMARY: 1. Left ventricle: Not well visualized. Systolic function is by the biplane method of disks. The estimated ejection fraction is 57%. Unable to assess LV diastolic function due to suboptimal technical data 2. Right ventricle: Not well visualized. Systolic function is grossly normal. 3. Atrial septum: Not well visualized. 4. Mitral valve: Not well visualized. Structurally normal valve. 5. Aortic valve: Not well visualized. 6. Tricuspid valve: Not well visualized. 7. Technically difficult study. Electronically signed by: Sherlyn Faria PA-C Date: 05/24/2024 at 1:31 PM Cosigned by Yovani Sheth DO at 05/24/2024 10:40 PM EST [facility] Work Phone: 05-27-2024 Note H&P reviewed. The you wynn was examined and there are no changes to the H&P. [facility] 05-27-2024 History and physical note H&P reviewed. The patient was examined and there are no changes to the H&P. Source Note - Sherlyn Faria PA-C - 05/24/2024 1:00 PM EST Images from the original note were not included. Comprehensive PreSurgical History and Physical ? Name: Sophie Hicks : 1965 (Age-58 y.o.) Date of Service: Pt seen/examined on 05/24/2024 Procedure Information Date/Time: 05/27/24 1230 Procedure: RIGHT TOTAL HIP ARTHROPLASTY (Right: Hip) - 60MIN Location: [address] Operating Room Surgeons: Antony Anderson MD Chief Complaint: Hip pain ASSESSMENT/PLAN: Patient is considered intermediate risk for this intermediate risk procedure/surgery noted above () with no reducible risk factors. Based on the above evaluation, the benefits of the planned procedure likely exceed the risks. The patient is medically optimized to proceed with the planned procedure without any further cardiopulmonary testing. 1) Right hip osteoarthritis Managed per surgery 2) CAD, mild -based on angiogram done [place] [address] [facility] S/p cardiac cath, denies stents Neg stress in the past Taking asa, statin Labs, EKG done Follows with cardio Dr Vences OV 05/13/24 3) HTN Typically controlled Not on meds anymore Follows with PCP Labs and EKG done BP Readings from Last 3 Encounters: 05/24/24 124/83 05/13/24 124/82 05/11/24 100/70 4) DEMI Resolved after bariatric surgery, no cpap now I would consider higher level of care (continuous pulse ox) with this patient due to DEMI and increased risks 5) COPD Asthma Per patient, feels at baseline Using daily inhaler, rescue inhaler several times a week Continue inhalers day of surgery Labs, EKG done 6) CKD3 Labs done Follows with PCP, nephrology Close monitoring and management of fluid volume and electrolytes advised. Avoid nephrotoxic agents 7) Hx Atrial Fibrillation, transient Taking asa Follows with pcp EKG and labs done 8) CVA ?TIA Occurred in ~2020 or 2021 Denies residual Taking asa, statin Follows with PCP 9) Hypothyroidism Currently taking synthroid Follows with PCP 10) Anxiety Depression Taking Wellbutrin, buspar, xanax prn, zoloft Follows with PCP 11) GERD Stable. Currently taking PPI Avoidance of triggers encouraged 12) BPH Taking flomax Follows with urology 13) Chronic pain Currently taking percocet prn Follow with pcp Do you have a history of chronic opioid use? CHRONIC NARCOTIC USAGE: Yes - Narcotics Used: percocet past year The patient meets the criteria for [facility] total joint replacement protocol. Visit Type: Pre-Admission Testing Visit Labs Ordered: NO - COMPLETE PRIOR TO PAT VISIT Sleep Referral Ordered: NO - NEGATIVE SCREEN PER SLEEP REFERRAL PROTOCOL Cardio clearance: Total time spent (which include face to face and non face to face encounters) : 45 minutes Toxic drug monitoring/narrow therapeutic index drug monitoring : # Drug name : n/a # Route administered : n/a # Method of monitoring : n/a PAT Protocol referenced includes: 1. Anesthesia Lab Protocol Orders 2. Perioperative Cardiovascular Risk Assessment 3. Anesthesia Assessment 4. Pain Assessment and Acute Pain Service Consult (if appropriate) 5. Medical Clearance/Consult from Internal Medicine (IMS) 6. Shower/Wash Order (for designated surgeries) 7. DEMI Screen and Sleep Clinic Referral (if appropriate) History Of Present Illness: 58 y.o. male who presents with chief complaint mentioned above. Per surgeon's note This patient has end-stage degenerative joint disease clinically and radiographically. The affected hip is severely impacting the patient's quality of life and causing them to decrease their daily activities. They have tried non-operative treatment including analgesics, an exercise program, and activity modification, but the symptoms have persisted for beyond three months. Pt has seen the surgeon and elected for above procedure. DM was prior to bariatric surgery, stable now, no meds Denies Hx of CHF, FL, DVT/PE Hx problems with anesthesia? - awareness under anesthesia during dental implant surgery Motion sickness sometimes upper and lower permanent implants Past Medical History: Past Medical History: No date: Abdominal pain No date: Atrial fibrillation (HCC) Comment: transient; resolved No date: Awareness under anesthesia Comment: during dental surgery at dentist office No date: Back pain 01/29/2015: Benign essential HTN No date: Blood circulation, collateral No date: CAD (coronary artery disease) Comment: mild - dx on cath - neg stress No date: Cerebral artery occlusion with cerebral infarction ([facility]) Comment: patient states not ever confirmed as stoke No date: Chronic kidney disease No date: COPD (chronic obstructive pulmonary disease) ([facility]) No date: COVID-19 Comment: 05/0309/25/2020: COVID-19 vaccine series completed Comment: Moderna 12/04/2020: COVID-19 vaccine series completed Comment: BOOSTER 12/25/2004: CS (cervical spondylosis) Comment: CERVICAL SPINE DJD No date: Difficulty sleeping No date: Dizziness No date: GERD (gastroesophageal reflux disease) 06/21/2013: History of colonic polyps Comment: repeat 2019 No date: Hyperlipidemia No date: Hypothyroidism 08/15/2014: Insomnia No date: Joint pain, hip No date: Joint pain, knee No date: Memory difficulties No date: Muscle weakness 09/30/2020: Peripheral polyneuropathy No date: Rheumatoid arthritis ([facility]) No date: Shortness of breath at rest No date: Sleep apnea Comment: resolved with weight loss No date: Snoring No date: SOBOE (shortness of breath on exertion) 03/19/2021: Type 2 diabetes mellitus ([facility]) Comment: resolved after weight loss Past Surgical History: Past Surgical History: No date: APPENDECTOMY 12/03/2021: BARIATRIC SURGERY Comment: Dr. Trevino 12/17/2013: CARDIAC CATHETERIZATION Comment: NORMAL CORONARY ARTERIES AND LVEF. No date: COLONOSCOPY 2020: COLONOSCOPY 10/26/2020: CYSTOSCOPY 11/19/2020: CYSTOSCOPY 09/16/2023: CYSTOSCOPY 03/02/2023: EGD (HISTORICAL) No date: NECK SURGERY Comment: Posterior cervical fusion 09/23/2023: PANNICULECTOMY (HISTORICAL) No date: ROTATOR CUFF REPAIR; Bilateral Comment: 2023 both surgeries 01/24/2021: UPPER GASTROINTESTINAL ENDOSCOPY Comment: Dr. Cabello Medications Prior to Admission: Current Outpatient Medications: ALPRAZolam (Xanax) 1 MG tablet, Take 1 mg by mouth Nightly., Disp: , Rfl: aspirin 81 MG EC tablet, Take 81 mg by mouth daily., Disp: , Rfl: atorvastatin (Lipitor) 80 MG tablet, Take 80 mg by mouth Nightly., Disp: , Rfl: baclofen (Lioresal) 10 MG tablet, Take 10 mg by mouth 2 times daily., Disp: , Rfl: buPROPion XL (Wellbutrin XL) 150 MG 24 hr tablet, Take 150 mg by mouth daily., Disp: , Rfl: busPIRone (Buspar) 10 MG tablet, Take 10 mg by mouth 2 times daily., Disp: , Rfl: dicyclomine (Bentyl) 10 MG capsule, Take 10 mg by mouth in the morning and 10 mg at noon and 10 mg in the evening and 10 mg before bedtime., Disp: , Rfl: Emollient (Aquaphor Advanced Therapy) ointment, apply to affected area up to four times a day, Disp: , Rfl: finasteride (Proscar) 5 MG tablet, Take 1 tablet (5 mg) by mouth daily. Do not crush, chew, or split., Disp: 90 tablet, Rfl: 3 fluticasone (Flonase) 50 MCG/ACT nasal spray, Administer 1 spray into each nostril daily., Disp: , Rfl: Fluticasone-Salmeterol (Advair Diskus) 250-50 MCG/ACT aerosol powder , Inhale 1 puff 2 times daily., Disp: , Rfl: gabapentin (Neurontin) 600 MG tablet, Take 600 mg by mouth 3 times daily., Disp: , Rfl: levothyroxine (Synthroid, Levoxyl) 75 MCG tablet, Take 1 tablet by mouth every morning (before breakfast)., Disp: , Rfl: lidocaine (Lidoderm) 5 % patch, Apply 1 patch topically daily., Disp: , Rfl: Multiple Vitamins-Minerals (MULTIVITAMIN ADULTS 50+ PO), Take 1 tablet by mouth daily., Disp: , Rfl: ondansetron (Zofran) 4 MG tablet, TAKE 1 TABLET BY MOUTH 3 TIMES DAILY NEEDED FOR NAUSEA & VOMITING NEEDED, Disp: , Rfl: oxyCODONE-acetaminophen (Percocet) 5-325 MG tablet, every 8 hours as needed., Disp: , Rfl: pantoprazole (ProtoNix) 40 MG EC tablet, Take 1 tablet (40 mg) by mouth daily., Disp: 30 tablet, Rfl: 5 psyllium (Metamucil) 58.6 % powder, Take 5.12 g (3 g of fiber) by mouth 2 times daily., Disp: 283 g, Rfl: 0 sertraline (Zoloft) 50 MG tablet, Take 50 mg by mouth daily., Disp: , Rfl: sildenafil (Viagra) 100 MG tablet, TAKE 1 TAB(S) ORALLY DIRECTED 90 DAYS NOT COVERED BY MEDICARE D, Disp: , Rfl: tadalafil (Cialis) 5 MG tablet, Take 1 tablet (5 mg) by mouth daily., Disp: 90 tablet, Rfl: 3 tamsulosin (Flomax) 0.4 MG 24 hr capsule, Take 1 capsule (0.4 mg) by mouth daily., Disp: 90 capsule, Rfl: 3 tiZANidine (Zanaflex) 2 MG tablet, Take 2 mg by mouth 2 times daily as needed., Disp: , Rfl: traMADol (Ultram) 50 MG tablet, every 8 hours., Disp: , Rfl: Ventolin HFA 108 (90 Base) MCG/ACT inhaler, Inhale 2 puffs every 6 hours as needed., Disp: , Rfl: CHRONIC NARCOTIC USAGE: Yes - Narcotics Used: percocet from pcp Allergies: Iodinated contrast media and Nsaids If patient has opioid allergy, is it okay to take Acetaminophen: N/A Social History: TOBACCO: reports that he has never smoked. He has never used smokeless tobacco. ETOH: reports no history of alcohol use. Social History Substance and Sexual Activity Drug Use Never Family History: Family History Problem Relation Name Age of Onset Cancer Mother Kerri hicks Osteoarthritis Mother Kerri hicks Lung cancer Mother Kerri hicks smoker Coronary artery disease Other REVIEW OF SYSTEMS: Review of Systems Constitutional: Negative for chills and fever. Respiratory: Negative for shortness of breath. Cardiovascular: Negative for chest pain. Pertinent positives as noted in the HPI. Physical Exam: Physical Exam Constitutional: General: He is awake. He is not in acute distress. Appearance: Normal appearance. HENT: Head: Normocephalic and atraumatic. Eyes: Extraocular Movements: Extraocular movements intact. Conjunctiva/sclera: Conjunctivae normal. Cardiovascular: Rate and Rhythm: Normal rate and regular rhythm. Heart sounds: Normal heart sounds. Pulmonary: Effort: Pulmonary effort is normal. Breath sounds: Normal breath sounds. Abdominal: Palpations: Abdomen is soft. Musculoskeletal: General: Normal range of motion. Cervical back: Normal range of motion. Skin: General: Skin is warm and dry. Neurological: General: No focal deficit present. Mental Status: He is alert and oriented to person, place, and time. Psychiatric: Mood and Affect: Mood normal. Behavior: Behavior normal. Behavior is cooperative. Vitals: Vitals Value Taken Time BP 124/83 05/24/24 1248 Temp 37 C (98.6 F) 05/24/24 1248 Pulse 71 05/24/24 1248 Resp 15 05/24/24 1248 SpO2 99 % 05/24/24 1248 BP 124/83 Pulse 71 Temp 37 C (98.6 F) (Temporal) Resp 15 Ht 1.88 m (6' 2) Wt 130 kg (286 lb) SpO2 99% BMI 36.72 kg/m Labs: Lab Results Component Value Date WBC 3.9 05/17/2024 HGB 11.7 (L) 05/17/2024 HCT 35.9 (L) 05/17/2024 MCV 88.4 05/17/2024 PLT 116 (L) 05/17/2024 Lab Results Component Value Date NA 138 10/02/2023 K 3.7 10/02/2023 CL 104 10/02/2023 CO2 30 05/17/2024 BUN 13 05/17/2024 CREATININE 1.17 05/17/2024 GLUCOSE 88 05/17/2024 CALCIUM 8.4 (L) 05/17/2024 PROT 6.2 05/17/2024 ALKPHOS 56 05/17/2024 AST 20 05/17/2024 ALT 13 05/17/2024 EGFR 71 05/17/2024 GLOB 2.1 05/17/2024 Roderick's Simple Cardiac Risk Index: Interpretation: 0 Points Class I 0.5% 1 Point Class II 1.3% 2 Points Class III 3.6% 3+ Points Class IV 9.1% METS >4 METS (Able to climb a flight of stairs with no chest pain or shortness of breath): Yes Walk indoors, such as around the house (1.75 METs), Do light work around the house, such as dusting or washing dishes (2.70 METs), Take care of self, that is eating, dressing, bathing, using the toilet (2.75 METs), Do moderate work around the house such as vacuuming, sweeping floors, or carrying in groceries (3.50 METs), Do yardwork, such as raking leaves, weeding,or pushing a power mower (4.50 METs), Climb a flight of stairs or walk up a hill (5.50 METs) PAT Pain Score: Pain Score: 9 Postop Pain Management Plan (Pain consult ordered?): Pain score >6 in PAT - Pain consult recommended, will defer consult to surgical team ? EKG: Done Encounter Date: 05/13/24 ECG 12 lead - CLINIC PERFORMED Narrative Sinus Rhythm WITHIN NORMAL LIMITS ECHO and EF: No components found for: LVEF, LVEFMODE Last Echo 10/02/23 Left Ventricle: Left ventricle size is normal. Mildly increased wall thickness. Normal left ventricular systolic function. EF by 2D Simpsons Biplane is 70%. Normal wall motion. Right Ventricle: Right ventricle size is normal. Normal systolic function. No significant valvular abnormalities. 07/23/20 SUMMARY: 1. Left ventricle: Not well visualized. Systolic function is by the biplane method of disks. The estimated ejection fraction is 57%. Unable to assess LV diastolic function due to suboptimal technical data 2. Right ventricle: Not well visualized. Systolic function is grossly normal. 3. Atrial septum: Not well visualized. 4. Mitral valve: Not well visualized. Structurally normal valve. 5. Aortic valve: Not well visualized. 6. Tricuspid valve: Not well visualized. 7. Technically difficult study. Electronically signed by: Sherlyn Faria PA-C Date: 05/24/2024 at 1:31 PM Cosigned by Yovani Sheth DO at 05/24/2024 10:40 PM EST documented in this encounter [facility] 05-27-2024 Note Formatting of this n ote might be different from the original. Patient educated on importance of coughing/ deep breathing after surgery to reduce risk of pneumonia. Patient educated on importance of early mobility to reduce the risk of blood clots. Falls prevention information reviewed with patient. Post-operative pain control and ways to prevent constipation discussed with patient. [facility] 05-27-2024 Note Formatting of this n ote might be different from the original. Patient educated on importance of coughing/ deep breathing after surgery to reduce risk of pneumonia. Patient educated on importance of early mobility to reduce the risk of blood clots. Falls prevention information reviewed with patient. Post-operative pain control and ways to prevent constipation discussed with patient. [facility] 05-24-2024 Telephone encounter Note Noted. [facility] 05-24-2024 Miscellaneous Notes Noted. Patient states his doesn't get off work until 9:30am but she will be able to get him to surgery on time as long as the time does not change. FYI Images from the original note were not included. Titi notified of PAT/[employer] times. Pt called asking to let Dr Anderson know that he got his blood work done and pt states he should be all set then for his surgery. No auth needed for Medicare. Insurance Info: Medicare PAT: TBD Sx: 05/27 @1230 Dx: M16.11 CPT: 98531 Case #: [id number] BOOKING INSTRUCTIONS Procedure: Right Total Hip Arthroplasty - with anterior approach and robotic assisted guidance - 0055T Time: 1 hour(s) Diagnosis: 1. Right hip pain 2. Primary osteoarthritis of right hip Blood: Not anticipated to be given Important Labs to Obtain: Routine PAT protocol Anesthesia: Spinal and quadratus lumborum block DVT Prophylaxis: ASA Return to Office: No Repeat Xrays: Alf CT Anticipated Discharge To: Home, 23-HR Stay Implants: Fausto Trident 2 Cup, Insignia Stem with Alf Equipment: Regular table, fluoro Other: TXA, No Conte, OpSite documented in this encounter [facility] 05-24-2024 Telephone encounter Note Patient states his doesn't get off work until 9:30am but she will be able to get him to surgery on time as long as the time does not change. [facility] 05-24-2024 Note [facility] 05-24-2024 Note [facility] 05-20-2024 Telephone encounter Note Images from the original note were not included. [facility] 05-20-2024 Miscellaneous Notes Images from the original note were not included. Titi notified of PAT/[employer] times. Pt called asking to let Dr Anderson know that he got his blood work done and pt states he should be all set then for his surgery. No auth needed for Medicare. Insurance Info: Medicare PAT: TBD Sx: 05/27 @1230 Dx: M16.11 CPT: 16330 Case #: [id number] BOOKING INSTRUCTIONS Procedure: Right Total Hip Arthroplasty - 9[address]64 with anterior approach and robotic assisted guidance - 0055T Time: 1 hour(s) Diagnosis: 1. Right hip pain 2. Primary osteoarthritis of right hip Blood: Not anticipated to be given Important Labs to Obtain: Routine PAT protocol Anesthesia: Spinal and quadratus lumborum block DVT Prophylaxis: ASA Return to Office: No Repeat Xrays: Alf CT Anticipated Discharge To: Home, 23-HR Stay Implants: [place] Trident 2 Cup, Insignia Stem with Alf Equipment: Regular table, fluoro Other: TXA, No Conte, OpSite documented in this encounter [facility] 05-19-2024 Miscellaneous Notes Alf scan in documented in this encounter [facility] 05-19-2024 Progress note Formatting of t his note might be different from the original. Alf scan in [facility] 05-18-2024 Telephone encounter Note Titi notified of PAT/[employer] times. [facility] 05-17-2024 Telephone encounter Note Pt called asking to let Dr Anderson know that he got his blood work done and pt states he should be all set then for his surgery. [facility] [employer] 05-17-2024 Telephone encounter Note No auth needed for Medicare. [facility] [employer] 05-16-2024 Telephone encounter Note Insurance Info: Medicare PAT: TBD Sx: 05/27 @1230 Dx: M16.11 CPT: 56777 Case #: [id number] BOOKING INSTRUCTIONS Procedure: Right Total Hip Arthroplasty - 61439 with anterior approach and robotic assisted guidance - 0055T Time: 1 hour(s) Diagnosis: 1. Right hip pain 2. Primary osteoarthritis of right hip Blood: Not anticipated to be given Important Labs to Obtain: Routine PAT protocol Anesthesia: Spinal and quadratus lumborum block DVT Prophylaxis: ASA Return to Office: No Repeat Xrays: Alf CT Anticipated Discharge To: Home, 23-HR Stay Implants: Fausto Trident 2 Cup, Insignia Stem with Alf Equipment: Regular table, fluoro Other: TXA, No Conte, OpSite [facility] [employer] 05-16-2024 Telephone encounter Note Patient has been scheduled. [facility] [employer] 05-16-2024 Miscellaneous Notes Patient has been scheduled. Pt transferred to [facility]. I called and left a vm with the patients about Titi retuning call to get scheduled for surgery. If patient returns call please transfer the patient to me. Can you speak with patient regarding cardiac clearance and scheduling sx? Can only take Tylenol due to kidney issues so no NSAIDS Patient called in and states Cardiology cleared them for surgery. Patient is also asking for pain medication but does not want Oxycotin. Please advise. I called and left a vm for the patient about scheduling. I called and left the patient a vm about getting scheduled for surgery. Name of caller: Titi Hicks Contact phone number: [phone] Relationship to Patient: patient Provider: Dr. Anderson Practice: Ortho Chief Complaint/Reason for Call: Patient called to let Dr. Anderson know that he seen his information engineer today and was for sx. Patient would like to proceed with scheduling sx. Please advise. Best time of day caller can be reached: any Patient advised that office/PCP has 24-48 business hours to return their call: Yes documented in this encounter [facility] [employer] 05-16-2024 Telephone encounter Note Pt transferred to [facility]. [facility] [employer] 05-16-2024 Telephone encounter Note I called and left a vm with the patients about Titi retuning call to get scheduled for surgery. If patient returns call please transfer the patient to me. [email or web address] 05-16-2024 Telephone encounter Note Can you speak with patient regarding cardiac clearance and scheduling sx? Can only take Tylenol due to kidney issues so no NSAIDS [id number] 05-16-2024 Telephone encounter Note Patient called in and states Cardiology cleared them for surgery. Patient is also asking for pain medication but does not want Oxycotin. Please advise. [email or web address] 05-16-2024 Telephone encounter Note I called and left a vm for the patient about scheduling. [id number] 05-14-2024 Telephone encounter Note S: Patient spoke with [facility] nurse regarding pain medication B: Pain medications/patch [facility] 05/11/24 A: Patient states severe RT hip pain- getting worse the past 4 days. Stated was told by PCP needs a hip replacement. Relates to taking Percocet 3x daily along with Tramadol and Lidocaine 5% patch with no relief. Was given 1.8% lidocaine patch by surgeon with relief. Requesting RX for 1.8% Lidocaine patch. R: Secure chat with Dr Doyle- telephone order: Lidocaine (Ztlido) 1.8% topically patch- 12hours on -12 hours off- 1 box- no refills. Called to [facility] [phone]. Not on formulary- will send prior auth form to office fax # given to pharmacist [phone]. Patient advised of above. Advised to continue Percocet/Tramadol and Lidocaine 5% patches Patient understands care advice. No further needs at this time. Patient instructed to call back with new or worsening symptoms. Reason for Disposition [1] SEVERE pain (e.g., excruciating, unable to do any normal activities) AND [2] not improved after 2 hours of pain medicine Protocols used: Hip [id number] [facility] [employer] 05-14-2024 Miscellaneous Notes S: Patient spoke with [facility] nurse regarding pain medication B: Pain medications/patch [facility] 05/11/24 A: Patient states severe RT hip pain- getting worse the past 4 days. Stated was told by PCP needs a hip replacement. Relates to taking Percocet 3x daily along with Tramadol and Lidocaine 5% patch with no relief. Was given 1.8% lidocaine patch by surgeon with relief. Requesting RX for 1.8% Lidocaine patch. R: Secure chat with Dr Doyle- telephone order: Lidocaine (Ztlido) 1.8% topically patch- 12hours on -12 hours off- 1 box- no refills. Called to [facility] [phone]. Not on formulary- will send prior auth form to office fax # given to pharmacist [phone]. Patient advised of above. Advised to continue Percocet/Tramadol and Lidocaine 5% patches Patient understands care advice. No further needs at this time. Patient instructed to call back with new or worsening symptoms. Reason for Disposition [1] SEVERE pain (e.g., excruciating, unable to do any normal activities) AND [2] not improved after 2 hours of pain medicine Protocols used: Hip [id number] documented in this encounter [facility] [employer] 05-13-2024 Telephone encounter Note I called and left the patient a vm about getting scheduled for surgery. [facility] [employer] 05-13-2024 Miscellaneous Notes I called and left the patient a vm about getting scheduled for surgery. Name of caller: Titi Hicks Contact phone number: [phone] Relationship to Patient: patient Provider: Dr. Anderson Practice: Ortho Chief Complaint/Reason for Call: Patient called to let Dr. Anderson know that he seen his information engineer today and was for sx. Patient would like to proceed with scheduling sx. Please advise. Best time of day caller can be reached: any Patient advised that office/PCP has 24-48 business hours to return their call: Yes documented in this encounter [facility] 05-13-2024 Telephone encounter Note Name of caller: Titi Hicks Contact phone number: [phone] Relationship to Patient: patient Provider: Dr. Anderson Practice: Ortho Chief Complaint/Reason for Call: Patient called to let Dr. Anderson know that he seen his information engineer today and was for sx. Patient would like to proceed with scheduling sx. Please advise. Best time of day caller can be reached: any Patient advised that office/PCP has 24-48 business hours to return their call: Yes [facility] 05-13-2024 History of Presen t illness Narrative [facility] [address] [address] Dept: [phone] Dept Visit type: New : 1965 DATE of SERVICE: 05/13/2024 Chief Complaint: Chief Complaint Patient presents with Cardiac Clearance History of Present Illness: Sophie Hicks is a 58 y.o. male with history of mild coronary disease based on angiogram done in [address] [facility], morbid obesity for which she underwent bariatric surgery in 2021 and has lost over 100 pounds since, hyperlipidemia, here for preop risk assessment prior to hip surgery. He reports feeling well without chest pain or dyspnea. States he exercises at a gym 3 to 4 days a week, although has not done so in the last 2 weeks because of worsening hip pain. States after losing weight his antihypertensive and diabetic medications were weaned off. He still on high intensity statin. He is on a diuretic once a day, unclear why. He has CKD stage III. I do not have recent labs, there was some ordered by his orthopedic surgeon which have not yet been done. EKG today shows normal sinus rhythm. Echocardiogram last year showed normal left and right ventricular size and systolic function, no significant valve abnormalities. Patient states he underwent a panniculectomy within the last year without cardiac complications. 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 Back pain Benign essential HTN 01/29/2015 Blood circulation, collateral CAD (coronary artery disease) mild - dx on cath - neg stress Cerebral artery occlusion with cerebral infarction (HCC) Chronic kidney disease COPD (chronic obstructive pulmonary disease) (HCC) COVID-19 05/03 COVID-19 vaccine series completed 09/25/2020 Moderna COVID-19 vaccine series completed 12/04/2020 BOOSTER CS (cervical spondylosis) 12/25/2004 CERVICAL SPINE DJD Difficulty sleeping Dizziness GERD (gastroesophageal reflux disease) History of colonic polyps 06/21/2013 repeat 2019 Hyperlipidemia Hypothyroidism Insomnia 08/15/2014 Joint pain, hip Joint pain, knee Memory difficulties Muscle weakness Peripheral polyneuropathy 09/30/2020 Rheumatoid arthritis (HCC) Shortness of breath at rest Sleep apnea resolved with weight loss Snoring SOBOE (shortness of breath on exertion) Type 2 diabetes mellitus (HCC) 03/19/2021 resolved after weight loss Past Surgical History Past Surgical History: Procedure Laterality Date APPENDECTOMY BARIATRIC SURGERY 12/03/2021 Dr. Trevino CARDIAC CATHETERIZATION 12/17/2013 NORMAL CORONARY ARTERIES AND LVEF. COLONOSCOPY COLONOSCOPY 2020 COSMETIC SURGERY skin removal after weight loss surgery CYSTOSCOPY 10/26/2020 CYSTOSCOPY 11/19/2020 CYSTOSCOPY 09/16/2023 EGD (HISTORICAL) 03/02/2023 NECK SURGERY Posterior cervical fusion PANNICULECTOMY (HISTORICAL) 09/23/2023 ROTATOR CUFF REPAIR Bilateral UPPER GASTROINTESTINAL ENDOSCOPY 01/24/2021 Dr. Cabello Family History Family History Problem Relation Name Age of Onset Cancer Mother Kerri hicks Osteoarthritis Mother Kerri hicks Lung cancer Mother Kerri hicks smoker Coronary artery disease Other Social History Social History Tobacco Use Smoking status: Never Smokeless tobacco: Never Vaping Use Vaping status: Never Used Substance Use Topics Alcohol use: Never Drug use: Never Allergies: Allergies Allergen Reactions Iodinated Contrast Media Other reaction(s): Kidney disease Nsaids Other reaction(s): Kidney disease Due to Kidney Disease Medications: Current Outpatient Medications: ALPRAZolam (Xanax) 1 MG tablet, Take 1 mg by mouth Nightly., Disp: , Rfl: aspirin 81 MG EC tablet, Take 81 mg by mouth daily., Disp: , Rfl: atorvastatin (Lipitor) 80 MG tablet, Take 80 mg by mouth Nightly., Disp: , Rfl: baclofen (Lioresal) 10 MG tablet, Take 10 mg by mouth 2 times daily., Disp: , Rfl: bumetanide (Bumex) 1 MG tablet, Take 1 mg by mouth in the morning and 1 mg before bedtime., Disp: , Rfl: buPROPion XL (Wellbutrin XL) 150 MG 24 hr tablet, Take 150 mg by mouth daily., Disp: , Rfl: busPIRone (Buspar) 10 MG tablet, Take 10 mg by mouth 2 times daily., Disp: , Rfl: dicyclomine (Bentyl) 10 MG capsule, Take 10 mg by mouth in the morning and 10 mg at noon and 10 mg in the evening and 10 mg before bedtime., Disp: , Rfl: Emollient (Aquaphor Advanced Therapy) ointment, apply to affected area up to four times a day, Disp: , Rfl: finasteride (Proscar) 5 MG tablet, Take 1 tablet (5 mg) by mouth daily. Do not crush, chew, or split., Disp: 90 tablet, Rfl: 3 fluticasone (Flonase) 50 MCG/ACT nasal spray, Administer 1 spray into each nostril daily., Disp: , Rfl: Fluticasone-Salmeterol (Advair Diskus) 250-50 MCG/ACT aerosol powder , Inhale 1 puff 2 times daily., Disp: , Rfl: gabapentin (Neurontin) 600 MG tablet, Take 600 mg by mouth 3 times daily., Disp: , Rfl: levothyroxine (Synthroid, Levoxyl) 75 MCG tablet, Take 1 tablet by mouth every morning (before breakfast)., Disp: , Rfl: lidocaine (Lidoderm) 5 % patch, Apply 1 patch topically daily., Disp: , Rfl: Multiple Vitamins-Minerals (MULTIVITAMIN ADULTS 50+ PO), Take 1 tablet by mouth daily., Disp: , Rfl: ondansetron (Zofran) 4 MG tablet, TAKE 1 TABLET BY MOUTH 3 TIMES DAILY NEEDED FOR NAUSEA & VOMITING NEEDED, Disp: , Rfl: oxyCODONE-acetaminophen (Percocet) 5-325 MG tablet, every 8 hours as needed., Disp: , Rfl: pantoprazole (ProtoNix) 40 MG EC tablet, Take 1 tablet (40 mg) by mouth daily., Disp: 30 tablet, Rfl: 5 psyllium (Metamucil) 58.6 % powder, Take 5.12 g (3 g of fiber) by mouth 2 times daily., Disp: 283 g, Rfl: 0 sertraline (Zoloft) 50 MG tablet, Take 50 mg by mouth daily., Disp: , Rfl: sildenafil (Viagra) 100 MG tablet, TAKE 1 TAB(S) ORALLY DIRECTED 90 DAYS NOT COVERED BY MEDICARE D, Disp: , Rfl: tadalafil (Cialis) 5 MG tablet, Take 1 tablet (5 mg) by mouth daily., Disp: 90 tablet, Rfl: 3 tamsulosin (Flomax) 0.4 MG 24 hr capsule, Take 1 capsule (0.4 mg) by mouth daily., Disp: 90 capsule, Rfl: 3 tiZANidine (Zanaflex) 2 MG tablet, Take 2 mg by mouth 2 times daily as needed., Disp: , Rfl: traMADol (Ultram) 50 MG tablet, every 8 hours., Disp: , Rfl: Ventolin HFA 108 (90 Base) MCG/ACT inhaler, Inhale 2 puffs every 6 hours as needed., Disp: , Rfl: Review of Systems: Review of Systems Respiratory: Negative for shortness of breath. Cardiovascular: Negative for chest pain and leg swelling. All other systems reviewed and are negative. Physical Examination: Vitals: Vitals: 05/13/24 1014 BP: 124/82 BP Location: Left arm Patient Position: Sitting BP Cuff Size: Large adult Pulse: 71 SpO2: 97% Weight: 275 lb 12.8 oz (125 kg) Height: 6' 2 (1.88 m) Body mass index is 35.41 kg/m . Physical Exam Constitutional: Appearance: Normal appearance. He is obese. HENT: Head: Normocephalic. Eyes: General: No scleral icterus. Right eye: No discharge. Left eye: No discharge. Cardiovascular: Rate and Rhythm: Normal rate and regular rhythm. Pulses: Normal pulses. Heart sounds: Normal heart sounds. No murmur heard. Pulmonary: Effort: Pulmonary effort is normal. Breath sounds: Normal breath sounds. Abdominal: General: Abdomen is flat. Palpations: Abdomen is soft. Musculoskeletal: General: Normal range of motion. Cervical back: Normal range of motion. Skin: General: Skin is warm and dry. Capillary Refill: Capillary refill takes less than 2 seconds. Neurological: Mental Status: He is alert and oriented to person, place, and time. Psychiatric: Mood and Affect: Mood normal. Laboratory Tests: Lab Results Component Value Date WBC 6.9 12/11/2023 HGB 13.6 12/11/2023 HCT 42.3 12/11/2023 MCV 85.8 12/11/2023 PLT 162 12/11/2023 Lab Results Component Value Date GLUCOSE 92 10/02/2023 CALCIUM 8.0 (L) 10/02/2023 NA 138 10/02/2023 K 3.7 10/02/2023 CO2 26 10/02/2023 CL 104 10/02/2023 BUN 13 10/02/2023 CREATININE 0.98 10/02/2023 Lab Results Component Value Date NA 138 10/02/2023 K 3.7 10/02/2023 CL 104 10/02/2023 CO2 26 10/02/2023 BUN 13 10/02/2023 CREATININE 0.98 10/02/2023 GLUCOSE 92 10/02/2023 CALCIUM 8.0 (L) 10/02/2023 PROT 6.5 10/01/2023 BILITOT 0.7 10/01/2023 ALKPHOS 76 10/01/2023 AST 28 10/01/2023 ALT 16 10/01/2023 Lab Results Component Value Date CREATININE 0.98 10/02/2023 CREATININE 1.12 10/01/2023 CREATININE 1.16 09/25/2023 Lab Results Component Value Date CHOL 75 07/16/2021 CHOL 140 11/16/2020 CHOL 215 (A) 07/24/2020 Lab Results Component Value Date TRIG 109 07/16/2021 TRIG 370 (A) 11/16/2020 TRIG 260 (A) 07/24/2020 Lab Results Component Value Date HDL 29 (L) 07/16/2021 HDL 28 (L) 11/16/2020 HDL 35 (L) 07/24/2020 NT PRO BNP Date Value Ref Range Status 07/03/2022 93 0 - 125 pg/mL Final Cardiac Tests: Last EKG 05/13/24 Sinus Rhythm Last Echo 10/02/23 Left Ventricle: Left ventricle size is normal. Mildly increased wall thickness. Normal left ventricular systolic function. EF by 2D Simpsons Biplane is 70%. Normal wall motion. Right Ventricle: Right ventricle size is normal. Normal systolic function. No significant valvular abnormalities. Assessment and Plan: 1. Preop risk assessment. He is not at elevated risk of cardiac complications related to upcoming hip surgery. He has good functional capacity, no cardiovascular symptoms, cardiac exam and EKG are fine. No further cardiac testing is indicated. Recommend perioperative DVT prophylaxis, choice of which is up to his surgeon. 2. History of mild nonobstructive CAD. No angina. Normal EKG. Continue aspirin and high intensity statin. Has aspirin can be stopped 1 week prior to surgery, and restarted a few days postop if risk of bleeding is considered low. #3. Hypertension. Currently diet controlled. #4. Dyslipidemia, with history of mild coronary disease on the cerebrovascular disease with prior TIA. Continue statin. 5. History of heart failure. He is still on a diuretic once daily, but denies any heart failure symptoms, is euvolemic on exam, and had an echocardiogram last year that essentially looked normal. There does not appear to be an indication for diuretic at this time. With his history of kidney dysfunction, recommend stopping diuretic. He is to call if he develops edema or dyspnea off the diuretic. Follow-up here as needed. I reviewed my assessment and plan with Sophie Hicks . All questions were answered. NOTE: This report was transcribed using voice recognition software. Every effort was made to ensure accuracy; however, inadvertent computerized fruit room hand errors may be present. documented in this encounter [facility] 05-11-2024 History of Presen t illness Narrative Images from the original note were not included. 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 male who presents for evaluation of the right hip. Symptoms began gradually several months ago. He describes the symptoms as sharp and shooting. Pain location: side of hip/laterally. Symptoms improve with rest, heat, ice, medication: Percocet used but not effective. The symptoms are exacerbated by activity. Able to walk 0 blocks and is able to use stairs. Overall, the patient feels as if this condition is severely impacting their quality of life and ability to do activities of daily living. No associated radicular pain contributing nor any radiating hip pain. No hx of blood clot, diabetic. No NSAIDS No cardiac issues. Previous Surgery: No Non-operative treatment has consisted of: NSAIDS: No Cortisone injections: No Assistive Devices: Yes Therapy: Yes Narcotics: Yes Activity modification: Yes Attempted Weight Loss: Yes Medications reviewed Review of Systems Constitutional: Negative for activity change. HENT: Negative for congestion. Cardiovascular: Negative for leg swelling. Musculoskeletal: Positive for arthralgias, gait problem and joint swelling. Skin: Negative for wound. Neurological: Negative for weakness. 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 Back pain Benign essential HTN 01/29/2015 Blood circulation, collateral CAD (coronary artery disease) mild - dx on cath - neg stress Cerebral artery occlusion with cerebral infarction (HCC) Chronic kidney disease COPD (chronic obstructive pulmonary disease) (HCC) COVID-19 05/03 COVID-19 vaccine series completed 09/25/2020 Moderna COVID-19 vaccine series completed 12/04/2020 BOOSTER CS (cervical spondylosis) 12/25/2004 CERVICAL SPINE DJD Difficulty sleeping Dizziness GERD (gastroesophageal reflux disease) History of colonic polyps 06/21/2013 repeat 2019 Hyperlipidemia Hypothyroidism Insomnia 08/15/2014 Joint pain, hip Joint pain, knee Memory difficulties Muscle weakness Peripheral polyneuropathy 09/30/2020 Rheumatoid arthritis (HCC) Shortness of breath at rest Sleep apnea resolved with weight loss Snoring SOBOE (shortness of breath on exertion) Type 2 diabetes mellitus (HCC) 03/19/2021 resolved after weight loss Past Surgical History: Procedure Laterality Date APPENDECTOMY BARIATRIC SURGERY 12/03/2021 Dr. Trevino CARDIAC CATHETERIZATION 12/17/2013 NORMAL CORONARY ARTERIES AND LVEF. COLONOSCOPY COLONOSCOPY 2020 COSMETIC SURGERY skin removal after weight loss surgery CYSTOSCOPY 10/26/2020 CYSTOSCOPY 11/19/2020 CYSTOSCOPY 09/16/2023 EGD (HISTORICAL) 03/02/2023 NECK SURGERY Posterior cervical fusion PANNICULECTOMY (HISTORICAL) 09/23/2023 ROTATOR CUFF REPAIR Bilateral UPPER GASTROINTESTINAL ENDOSCOPY 01/24/2021 Dr. Cabello Social History Socioeconomic History Marital status: Spouse name: Not on file Number of children: Not on file Years of education: Not on file Highest education level: Not on file Occupational History Not on file Tobacco Use Smoking status: Never Smokeless tobacco: Never Vaping Use Vaping status: Never Used Substance and Sexual Activity Alcohol use: Never Drug use: Never Sexual activity: Yes Partners: Female control/protection: Surgical, None Other Topics Concern Not on file Social History Narrative Not on file Social Drivers of Health Financial Resource Strain: Not on file Food Insecurity: No Food Insecurity (08/18/2023) Hunger Vital Sign Worried About Running Out of Food in the Last Year: Never true Ran Out of Food in the Last Year: Never true Transportation Needs: No Transportation Needs (10/01/2023) PRAPARE - Transportation Lack of Transportation (Medical): No Lack of Transportation (Non-Medical): No Physical Activity: Not on file Stress: Not on file Social Connections: Not on file Intimate Partner Violence: Not At Risk (10/01/2023) Humiliation, Afraid, Rape, and Kick questionnaire Fear of Current or Ex-Partner: No Emotionally Abused: No Physically Abused: No Sexually Abused: No Housing Stability: Low Risk (10/01/2023) Housing Stability Vital Sign Unable to Pay for Housing in the Last Year: No Number of Times Moved in the Last Year: 1 Homeless in the Last Year: No Family History Problem Relation Name Age of Onset Osteoarthritis Mother Kerri hicks Lung cancer Mother Kerri hicks smoker Coronary artery disease Other Allergies Allergen Reactions Iodinated Contrast Media Other reaction(s): Kidney disease Nsaids Other reaction(s): Kidney disease Due to Kidney Disease Objective: BP 100/70 Ht 6' 2 (1.88 m) Wt 251 lb (114 kg) BMI 32.23 kg/m Pt is a WD/WN male in no acute distress. He appears his stated age. Mood and affect are normal. He is A&O x 3. Gait: antalgic. RIGHT HIP: Skin is warm, dry and intact. There are no rashes, lesions, or obvious scars. No tenderness to palpation. Greater trochanter is tender. ROM shows flexion 90, IR 20, ER 30, with pain. Stinchfield exam: positive. +PF/DF/EHL. SILT distally. DP/PT palpable. Straight leg raise negative for inciting radicular symptoms. LEFT HIP: Skin is warm, dry and intact. There are no rashes, lesions, or obvious scars. No tenderness to palpation. Greater trochanter is not tender. ROM shows flexion 100, IR 30, ER 40, without pain. Stinchfield exam: negative. +PF/DF/EHL. SILT distally. DP/PT palpable. Straight leg raise negative for inciting radicular symptoms. The patient does not have a leg length discrepancy. Lab Findings: RELEVANT LABS: NONE Radiology Findings: 05/11/24 images obtained by outside radiology department independently reviewed by myself today in office. XRAYS: Indication: Right hip pain Exam Ordered: Radiographs include an anteroposterior pelvis, an anteroposterior and lateral view of the proximal femur including the hip joint. Details of Examination: Exam shows evidence of significant joint space narrowing (bone on bone), significant peripheral osteophyte formation, and subchondral sclerosis; all consistent with end-stage degenerative changes of the hip. No other significant findings are noted. Impression: Degenerative Arthritis, right hip Assessment 1. Right hip pain 2. Primary osteoarthritis of right hip Plan Right Total Hip Arthroplasty. This patient has end-stage degenerative joint disease clinically and radiographically. The affected hip is severely impacting the patient's quality of life and causing them to decrease their daily activities. They have tried non-operative treatment including analgesics, an exercise program, and activity modification, but the symptoms have persisted for beyond three months. The patient meets all of the criteria for a total hip arthroplasty. The risks and benefits of hip arthroplasty have been discussed with the patient. Benefits include potential relief of pain and the associated improvement in quality of life. Improvements in hip range of motion may or may not be attained and is less predictable. Risks include, but are not limited to, infections (including severe sequelae), potential component failure and implant loosening, fracture, DVT, pulmonary embolus, hip dislocation, leg length discrepancy, damage to nerves/muscles/tendons/ligaments, osteolysis, persistent pain, wound healing complications, bleeding and need for possible transfusions, multi-system organ injury/failure, and ultimately . The patient comprehends and understands the risks clearly and wishes to proceed with the indicated total hip procedure. Principal Care Management (PCM) services were recommended to this patient with a diagnosis of osteoarthritis who has failed conservative management and is indicated for, as well as undergone shared decision-making to undergo a total joint arthroplasty procedure. PCM services provided to the patient include but not limited to structured recording of patient health information within our electronic medical record system, 03/11 access and continuity of care to qualified practitioners and/or clinical staff, comprehensive care management and planning to optimize pre-surgical needs, choice of an appropriate surgical facility, preoperative patient education, and coordination of patient-specific margarita-operative needs. This will be actively managed by the clinical staff with physician supervision throughout enrollment in the program. The clinical staff will help manage care transitions as well as coordinate home and community-based care as it pertains to the patient's needs. The patient expresses understanding and awareness of PCM services, including but not limited to potential cost-sharing responsibilities; only one practitioner can furnish and bill for PCM services during a calendar month, and the patient can stop these services at any time. The patient understands and has verbally consented to accept PCM services. We will need a 4 week post-op check with WB AP pelvis, AP, and frog leg views of operative hip. Pre-operative planning will include the following: A pre-surgical evaluation by an digital art director will be arranged. Pre-operative laboratory tests as well as EKG which will be checked by the digital art director. Will make arrangements with the operating room for proper time and staffing. Arrangements with the implant company to make sure the proper implants are made available. Social service arrangements for the patient, to include physical therapy at home versus in the outpatient setting, depending on patient preference. The chance for [facility] facility discharge is also plausible pending post-op therapy. Patient Discussion, Scripts, & Risk Assessment Checklist: [x] Detailed Consent Performed [x] Cardiology consult prior to surgery (i.e. CHF, stents) - Referral placed, history CHF [] Specialist managing patient (i.e. endocrine, nephrology, oncology) N/A [] PCP consult prior to surgery [x] PT Discussion - Patient prefers: Home PT [] Outpatient PT script provided - Patient to schedule well in advance for 2-3 days after surgery [x] Margarita-articular Injection Form Submitted - Without Ketorolac - All Total Joint Procedures [] Dental work to be done - Patient to call back after completed/cleared before scheduling [] Previous Blood Clot: N/A [] Disease Modifying Drugs for *Autoimmune Disease N/A [x] Risk Assessment... Chronic Kidney Disease [x] High Risk Protocol Duricef 500mg BID x 7 days BOOKING INSTRUCTIONS Procedure: Right Total Hip Arthroplasty - 70925 with anterior approach and robotic assisted guidance - 54T Time: 1 hour(s) Diagnosis: 1. Right hip pain 2. Primary osteoarthritis of right hip Blood: Not anticipated to be given Important Labs to Obtain: Routine PAT protocol Anesthesia: Spinal and quadratus lumborum block DVT Prophylaxis: ASA Return to Office: No Repeat Xrays: Alf CT Anticipated Discharge To: Home, 23-HR Stay Implants: Surprise Trident 2 Cup, Insignia Stem with Alf Equipment: Regular table, fluoro Other: TXA, No Conte, OpSite The patient is not a candidate for same day joint replacement. Antony Anderson M.D. 05/11/2024 at 12:03 PM (Electronically Signed) documented in this encounter [facility] 04-29-2024 History of Presen t illness Narrative Images from the original note were not included. 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 male who presents today for evaluation of right lower extremity symptoms. Location: thigh Onset: 1 month Injury: no but has fallen 8 times since his thigh started hurting Quality: sharp Mechanical symptoms: popping, crepitus, grinding, catching, locking, and instability Radiation of symptoms: from his thigh into his knee Severity: 5/10 at rest and 10/10 at worst Exacerbating factor(s): walking, prolonged standing, prolonged sitting, rising from a seated position, and climbing/descending stairs Relieving factor(s): ocycodone 3 times a day for kidney failure Timing: all day Imaging to date: X-ray March 2024 Treatment to date: PT/OT/HEP: has done PT and it has made it worse Ice: yes, not helpful Heat: yes, not helpful Medications: Tylenol: no NSAIDs: no Oral steroids: no unable to take due to having weight loss surgery Muscle relaxants: no Nerve medications: no Targeted injections: Corticosteroid 8 months ago for his knee . Helpful. 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 Respiratory: Breathing comfortably on room air. No respiratory distress. Skin: Warm, dry, intact. No visible rashes or erythema overlying area of focused exam. Physical Exam Musculoskeletal: Lumbar back: No swelling, deformity, spasms, tenderness or bony tenderness. Decreased range of motion. Negative right straight leg raise test and negative left straight leg raise test. Right hip: Tenderness present. No deformity. Decreased range of motion (0 degrees internal rotation, 0 degrees external rotation with severe pain at attempts with internal and external rotation). Legs: Comments: Strength Testing Hip Flexors (T12-L3) normal strength bilateral, no weakness Quad (L2-L4) normal strength bilateral, no weakness Tibialis Anterior (L4) normal strength bilateral, no weakness Extensor Hallusis Longus (L5) normal strength bilateral, no weakness Peroneus Longus (S1) normal strength bilateral, no weakness Gastroc (S1) normal strength bilateral, no weakness External Notes No pertinent interval updates Labs Lab Results Component Value Date HGBA1C 5.5 11/20/2021 Lab Results Component Value Date CREATININE 0.98 10/02/2023 Imaging Images reviewed with patient today I have personally reviewed the images pertinent to the appointment today EMG/NCT No interval studies Procedure No procedures completed today Assessment Diagnosis Plan 1. Primary osteoarthritis of right hip Plan We discussed osteoarthritis. We reviewed the spectrum of 1. Pills - everything from Tylenol, ibuprofen, Aleve, supplements, and pain medicines. 2. Physical therapy - formal physical therapy and braces. The benefits of strengthening, endurance, flexibility, balancing, and proprioception. The combination of all of these to decrease joint pain. As well as a preoperative technique to prepare the body for upcoming surgery. 3. Shots - corticosteroid, hyaluronic acid, and investigational injections. 4. Surgery - cleanup procedures as well as total joint replacement. Due to the progression of severity in this case, lack of response to conservative treatments, and long-term goals. We have elected to proceed with orthopedic joint team evaluation. Appropriate referrals and appointments will be made. No follow-ups on file. Juaquin Amos MD 04/29/2024 1:28 PM Please note that portions of this note may have been completed with voice recognition software. Efforts were made to edit the dictation but minor errors in fruit room hand may have occurred. documented in this encounter [facility] [employer] 03-09-2024 Telephone encounter Note S: Yue from [employer] spoke with [facility] nurse regarding medication prescriptions B: Onset of symptoms/concern today A: [employer] [facility] states she has questions regarding multiple prescriptions sent on 1122. R: No medications were seen in [facility] for that day. Spoke with Lisandro in office who asked that note be sent to office and office will call her or patient back. Yue understands care advice. No further needs at this time. Reason for Disposition Nursing judgment Protocols used: Information Only Call - No [id number] [facility] [employer] 03-09-2024 Miscellaneous Notes S: Yue from [employer] spoke with [facility] nurse regarding medication prescriptions B: Onset of symptoms/concern today A: [employer] [facility] states she has questions regarding multiple prescriptions sent on 1122. R: No medications were seen in [facility] for that day. Spoke with Lisandro in office who asked that note be sent to office and office will call her or patient back. Yue understands care advice. No further needs at this time. Reason for Disposition Nursing judgment Protocols used: Information Only Call - No [id number] documented in this encounter [facility] 02-29-2024 Note Pt returned my call in regards to the referral we received for the sx he already had with us. Pt said all is well with him and it must be a mistake that his PCP sent it in. [facility] 02-29-2024 Telephone encounter Note Pt returned my call in regards to the referral we received for the sx he already had with us. Pt said all is well with him and it must be a mistake that his PCP sent it in. [facility] 02-29-2024 Miscellaneous Notes Pt returned my call in regards to the referral we received for the sx he already had with us. Pt said all is well with him and it must be a mistake that his PCP sent it in. documented in this encounter [facility] 02-29-2024 Note Received ref from MIKEL P. Called pt and LVM. Referral looks like it may have to do with his prior pannic performed by Dr Gutierrez. [facility] 02-29-2024 Telephone encounter Note Received ref from PCP. Called pt and LVM. Referral looks like it may have to do with his prior pannic performed by Dr Gutierrez. [facility] 02-29-2024 Miscellaneous Notes Received ref from PCP. Called pt and LVM. Referral looks like it may have to do with his prior pannic performed by Dr Gutierrez. documented in this encounter [facility] 02-03-2024 Telephone encounter Note Left detailed message for patient to call back to reschedule. [facility] 02-03-2024 Miscellaneous Notes Left detailed message for patient to call back to reschedule. documented in this encounter [facility] 12-15-2023 Telephone encounter Note Surgery has been canceled. [facility] 12-15-2023 Miscellaneous Notes Surgery has been canceled. Patient called to cancel his surgery on 12/17/[address] Coyne. He states that he started to take his finasteride again and he is now not having any issues at all. Routing to [facility] for completion. documented in this encounter [facility] 12-15-2023 Telephone encounter Note Patient called to cancel his surgery on 12/17/[address] Coyne. He states that he started to take his finasteride again and he is now not having any issues at all. Routing to [facility] for completion. [facility] 12-11-2023 Telephone encounter Note Spoke with patient given Benjamín's message verbatim. Patient verbalized understanding and have no further questions or concerns at this time. [facility] 12-11-2023 Miscellaneous Notes Spoke with patient given Benjamín's message verbatim. Patient verbalized understanding and have no further questions or concerns at this time. TURP can be done after prior UroLift. He will have retrograde ejaculation after TURP, this is unavoidable. He will still be able to orgasm. The volume he ejaculates will be little to none after procedure. Pt wants to know the Urolift the had about 2 years ago will be affected with the TURP. He also states Dr. Dumont was speak to him about how his ejaculation may be affect and would like to discuss this more. Patient requesting a call from , just states he has questions about his surgery. Please call patient. Pt called into PAT to request surgery to be cancelled. PT transferred to office to cancel surgery. PT did not advise as to why he was canceling. Pt agrees to d/t/l and instructions for PAT/Surgery Doctor: Doretha HSU (arrive 15 min early): 12/11/23 at 2:00pm PAT instructions: Please bring photo ID, insurance card, list of all current medications Surgery: 12/17/23 at 11:30am at [facility] Surgery arrival time: 9:30am Surgery instructions: Nothing to eat after midnight. Can have clear liquids black coffee (no cream or dairy), tea, water, Sprite, apple juice, Gatorade (no reds or purples) up until arrival time. Medication instructions: Hold Aspirin, fish oil and over the counter vitamins 3 days prior to surgery Post op follow-up: SURGERY SCHEDULING PROCEDURE: : cystoscopy transurethral resection prostate button DIAGNOSIS: bph FACILITY: [facility] DETAILS: TBA ANESTHESIA: GENERAL TIME REQUESTED: 2HR DATE REQUESTED: ROUTINE POST OP FOLLOW UP: 6 WK REP REQUESTED: MEDICAL CLEARANCE: CONFERENCE: NO COVID TESTING: NO documented in this encounter [facility] [employer] 12-11-2023 Telephone encounter Note TURP can be done after prior UroLift. He will have retrograde ejaculation after TURP, this is unavoidable. He will still be able to orgasm. The volume he ejaculates will be little to none after procedure. [facility] [employer] Work Phone: 12-11-2023 Telephone encounter Note Pt wants to know the Urolift the had about 2 years ago will be affected with the TURP. He also states Dr. Dumont was speak to him about how his ejaculation may be affect and would like to discuss this more. [facility] [employer] 12-10-2023 Telephone encounter Note Patient requesting a call from jovita Lin states he has questions about his surgery. Please call patient. [employer] 12-10-2023 Telephone encounter Note Pt called into PAT to request surgery to be cancelled. PT transferred to office to cancel surgery. PT did not advise as to why he was canceling. [facility] 12-07-2023 Telephone encounter Note Pt agrees to d/t/l and instructions for PAT/Surgery Doctor: Doretha HSU (arrive 15 min early): 12/11/23 at 2:00pm PAT instructions: Please bring photo ID, insurance card, list of all current medications Surgery: 12/17/23 at 11:30am at [facility] Surgery arrival time: 9:30am Surgery instructions: Nothing to eat after midnight. Can have clear liquids black coffee (no cream or dairy), tea, water, Sprite, apple juice, Gatorade (no reds or purples) up until arrival time. Medication instructions: Hold Aspirin, fish oil and over the counter vitamins 3 days prior to surgery Post op follow-up: [facility] 12-01-2023 Telephone encounter Note SURGERY SCHEDULING PROCEDURE: : cystoscopy transurethral resection prostate button DIAGNOSIS: bph FACILITY: [facility] DETAILS: TBA ANESTHESIA: GENERAL TIME REQUESTED: 2HR DATE REQUESTED: ROUTINE POST OP FOLLOW UP: 6 WK REP REQUESTED: MEDICAL CLEARANCE: CONFERENCE: NO COVID TESTING: NO [facility] 12-01-2023 History of Presen t illness Narrative Images from the original note were not included. Cristo Coyne MD 12/01/2023 at 12:00 PM Telemedicine follow up PATIENT NAME: Sophie Hicks DATE OF : 1965 TODAY'S DATE: 12/01/2023 CHIEF COMPLAINT: Chief Complaint Patient presents with Benign Prostatic Hypertrophy Subjective: HPI Mr. Hicks is a 58 y.o. male who presents to the office for follow up. He is recovered from abdominoplasty Severe luts Hx urolift 2020 Wants turp Review of Systems 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 anesthesia Back pain Benign essential HTN 01/29/2015 Blood circulation, collateral CAD (coronary artery disease) mild - dx on cath - neg stress Cerebral artery occlusion with cerebral infarction (HCC) Chronic kidney disease COPD (chronic obstructive pulmonary disease) (HCC) COVID-19 05/03 COVID-19 vaccine series completed 09/25/2020 Moderna COVID-19 vaccine series completed 12/04/2020 BOOSTER CS (cervical spondylosis) 12/25/2004 CERVICAL SPINE DJD Difficulty sleeping Dizziness GERD (gastroesophageal reflux disease) History of colonic polyps 06/21/2013 repeat 2019 Hyperlipidemia Hypothyroidism Insomnia 08/15/2014 Joint pain, hip Joint pain, knee Memory difficulties Muscle weakness Peripheral polyneuropathy 09/30/2020 Rheumatoid arthritis (HCC) Shortness of breath at rest Sleep apnea resolved with weight loss Snoring SOBOE (shortness of breath on exertion) Type 2 diabetes mellitus (HCC) 03/19/2021 resolved after weight loss Past Surgical History: Procedure Laterality Date APPENDECTOMY BARIATRIC SURGERY 12/03/2021 Dr. Trevino CARDIAC CATHETERIZATION 12/17/2013 NORMAL CORONARY ARTERIES AND LVEF. COLONOSCOPY COLONOSCOPY 2020 COSMETIC SURGERY CYSTOSCOPY 10/26/2020 CYSTOSCOPY 11/19/2020 CYSTOSCOPY 09/16/2023 EGD (HISTORICAL) 03/02/2023 NECK SURGERY Posterior cervical fusion PANNICULECTOMY (HISTORICAL) 09/23/2023 ROTATOR CUFF REPAIR Bilateral UPPER GASTROINTESTINAL ENDOSCOPY 01/24/2021 Dr. Cabello Social History: Social History Socioeconomic History Marital status: Spouse name: Not on file Number of children: Not on file Years of education: Not on file Highest education level: Not on file Occupational History Not on file Tobacco Use Smoking status: Never Smokeless tobacco: Never Vaping Use Vaping status: Never Used Substance and Sexual Activity Alcohol use: Never Drug use: No Sexual activity: Yes Partners: Female control/protection: Surgical, None Other Topics Concern Not on file Social History Narrative Not on file Social Determinants of Health Financial Resource Strain: Not on file Food Insecurity: No Food Insecurity (08/18/2023) Hunger Vital Sign Worried About Running Out of Food in the Last Year: Never true Ran Out of Food in the Last Year: Never true Transportation Needs: No Transportation Needs (10/01/2023) PRAPARE - Transportation Lack of Transportation (Medical): No Lack of Transportation (Non-Medical): No Physical Activity: Not on file Stress: Not on file Social Connections: Not on file Intimate Partner Violence: Not At Risk (10/01/2023) Humiliation, Afraid, Rape, and Kick questionnaire Fear of Current or Ex-Partner: No Emotionally Abused: No Physically Abused: No Sexually Abused: No Housing Stability: Low Risk (10/01/2023) Housing Stability Vital Sign Unable to Pay for Housing in the Last Year: No Number of Times Moved in the Last Year: 1 Homeless in the Last Year: No Family History: Family History Problem Relation Name Age of Onset Osteoarthritis Mother Kerri hicks Lung cancer Mother Kerri hicks smoker Coronary artery disease Other Medications Prior to Admission medications Medication Sig Start Date End Date Taking? Authorizing Provider aspirin 81 MG EC tablet 81 mg daily. 09/25/20 Historical Provider, atorvastatin (Lipitor) 80 MG tablet Take 80 mg by mouth Nightly. 03/02/22 Historical Provider, baclofen (Lioresal) 10 MG tablet Take 10 mg by mouth 2 times daily. 03/19/22 Historical Provider, bumetanide (Bumex) 1 MG tablet Take 1 mg by mouth in the morning and 1 mg before bedtime. 03/02/22 Historical Provider, buPROPion XL (Wellbutrin XL) 150 MG 24 hr tablet Take 150 mg by mouth daily. 03/10/22 Historical Provider, busPIRone (Buspar) 10 MG tablet Take 10 mg by mouth 2 times daily. 01/26/23 Historical Provider, dicyclomine (Bentyl) 10 MG capsule Take 10 mg by mouth in the morning and 10 mg at noon and 10 mg in the evening and 10 mg before bedtime. 12/19/21 Historical Provider, Emollient (Aquaphor Advanced Therapy) ointment apply to affected area up to four times a day 09/14/23 Historical Provider, finasteride (Proscar) 5 MG tablet Take 1 tablet (5 mg) by mouth daily. Do not crush, chew, or split. 08/27/23 08/26/24 GREG Jackson NP fluticasone (Flonase) 50 MCG/ACT nasal spray Administer 1 spray into each nostril daily. 03/12/21 Historical Provider, Fluticasone-Salmeterol (Advair Diskus) 250-50 MCG/ACT aerosol powder Inhale 1 puff 2 times daily. Historical Provider, levothyroxine (Synthroid, Levoxyl) 75 MCG tablet Take 1 tablet by mouth every morning (before breakfast). 03/19/22 Historical Provider, methocarbamol (Robaxin) 750 MG tablet Take 1 tablet (750 mg) by mouth in the morning and 1 tablet (750 mg) at noon and 1 tablet (750 mg) in the evening and 1 tablet (750 mg) before bedtime. Do all this for 10 days. 09/29/23 10/09/23 Sherlyn Del Rio PA-C Multiple Vitamins-Minerals (MULTIVITAMIN ADULTS 50+ PO) Take 1 tablet by mouth daily. Historical Provider, pantoprazole (ProtoNix) 40 MG EC tablet TAKE 1 TABLET BY MOUTH ONCE DAILY 10/02/23 Mattie Lopez MD psyllium (Metamucil) 58.6 % powder Take 5.12 g (3 g of fiber) by mouth 2 times daily. 10/01/23 09/30/24 Marisel Fink APRN - NASRIN sertraline (Zoloft) 50 MG tablet Take 50 mg by mouth daily. 01/23/23 Historical Provider, tadalafil (Cialis) 5 MG tablet Take 1 tablet (5 mg) by mouth daily. 11/25/23 11/24/24 Cristo Coyne MD tamsulosin (Flomax) 0.4 MG 24 hr capsule Take 1 capsule (0.4 mg) by mouth daily. 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 08/24/23 Historical Provider, Ventolin HFA 108 (90 Base) MCG/ACT inhaler Inhale 2 puffs every 6 hours as needed. 03/19/22 Historical Provider, tadalafil (Cialis) 5 MG tablet Take 1 tablet (5 mg) by mouth daily. 09/08/23 11/25/23 Cristo Coyne MD Vitals: There were no vitals taken for this visit. Physical Exam: Physical Exam aox3 LABS: No results found for: PSAFREE, PSAFREEPCT No results for input(s): PSAFREE, PSAFREEPCT in the last 72 hours. No results found for: TESTOSTERONE Lab Results Component Value Date WBC 4.6 10/02/2023 HGB 10.8 (L) 10/02/2023 HCT 32.2 (L) 10/02/2023 MCV 87.5 10/02/2023 PLT 102 (L) 10/02/2023 Lab Results Component Value Date GLUCOSE 92 10/02/2023 CALCIUM 8.0 (L) 10/02/2023 NA 138 10/02/2023 K 3.7 10/02/2023 CO2 26 10/02/2023 CL 104 10/02/2023 BUN 13 10/02/2023 CREATININE 0.98 10/02/2023 No components found for: LABURIN Lab Results Component Value Date COLORU Yellow 10/01/2023 CLARITYU Turbid (A) 10/01/2023 GLUCOSEUR neg 08/08/2020 BILIRUBINUR Negative 12/17/2021 KETONESU Negative 10/01/2023 SPECGRAV >=1.030 08/08/2020 PHUR 7.0 08/08/2020 PROTUR 30 (A) 10/01/2023 UROBILINOGEN 4 (A) 10/01/2023 LEUKOCYTESUR Negative 12/17/2021 NITRITE neg 08/08/2020 Radiology Review: Impression/Plan Diagnosis Plan 1. Benign prostatic hyperplasia with post-void dribbling 2. Gross hematuria Bph-hx of urolift 11/2020. Still with slow stream and post mict dribble. 08/10/23 cysto with mod bilobar bph, no tcc.09/16/23-cysto fulg, due to bleeding prostate. No better with 2 flomax and daily cialis. He is recovered from abdominoplasty and wants turp. Will schedule as IP ACH. Ed-switch from viagra to daily cialis Obese-had bariatric surgery lost 240 lb had addominoplasty by Dr Gutierrez. Follow up for schedule surgery. Cristo Coyne MD 12/01/23 12:00 PM Pt has elected to proceede with button/loop saline turp for treatment of bph. Discussed the procedure in detail. Procedure may last from 1-2 hours. Conte catheter for 7 days post op. Usually done as outpatient although over night stay may be needed if has issues with bleeding. Discussed risk for tur syndrome, risk of urethral stricture, bladder neck contracture, meatal stenosis. Small risk of bleeding and very low risk of blood transfusion. Has 1% chance for incontinence and impotence. Discussed high chance for retrograde ejaculation. Will likely have irritative void symptoms for 6-12 weeks and may have intermittent heme for several weeks.Discussed risk of mi, dvt, pe, pneumonia, cva, coma, , All of his questions were answered he wishes to proceede. Patient was identified and seen today via Telehealth by agreement and consent. I used the following Telehealth technology: Audio and video capabilities. Patient location: Patient Location: Home. This patient encounter is appropriate and reasonable under the circumstances: transportation issues . The patient has been advised of the potential risks and limitations of this mode of treatment (including but not limited to the absence of in-person examination) and has agreed to be treated in a remote fashion in spite of them. Any and all of the patient's/patient's family's questions on this issue have been answered and I have made no promises or guarantees to the patient. The patient has also been advised to contact this office for worsening conditions or problems, and seek emergency medical treatment and/or call 911 if the patient deems either necessary. The patient stated that they are currently in the [facility]. If the patient is a minor, permission has been obtained by the parent or guardian for the patient to receive medical care at this visit. On this date,12/01/2023 I have spent 30 minutes reviewing previous notes, test results and emhn-im-iobe with the patient discussing the diagnosis importance of compliance with the treatment plan as well as documenting on the day of the visit. documented in this encounter [facility] 11-09-2023 Telephone encounter Note Pt called in to schedule his follow up visit w/DR Coyne. Informed the patient a FU visit is already scheduled 12/01/23 w/DR Doretha CARDONAHART video visit, pt voiced understanding. [facility] 11-09-2023 Miscellaneous Notes Pt called in to schedule his follow up visit w/DR Coyne. Informed the patient a FU visit is already scheduled 12/01/23 w/DR Coyne MYCHART video visit, pt voiced understanding. MyChart visit on 12/01/23 at 11:45am with Dr. Coyne. He had cystoscopy pyelogram and fulguration. He needs to follow-up with me in 10 weeks. It can be a virtual visit documented in this encounter [facility] 11-03-2023 History of Presen t illness Narrative Plastic Surgery Progress Note PATIENT NAME: Sophie Hicks TODAY'S DATE: 11/03/2023 SUBJECTIVE: Sophie Hicks is s/p panniculectomy (09/23/2023). Patient doing well. No issues. OBJECTIVE: VITALS: There were no vitals taken for this visit. CONSTITUTIONAL: NAD RESPIRATORY: Nonlabored, No wheezing CV: HR/BP Stable ABDOMEN: Soft, NT, ND INCISION: Abdominal incision is clean, dry, and intact. Healing well by primary intention. Umbilical stalk is viable and intact. No signs or symptoms suggestive of infection inflammation. EXTREMITIES: ROM intact ASSESSMENT AND PLAN: Sophie Hicks is a 58 y.o. male s/p panniculectomy. -No weight lifting restrictions -Continue use of abdominal binder -Okay to discontinue use of compression stockings - Follow up in 2 months for 3-month postop The physician was present, and has seen and examined the patient at the bedside with me. documented in this encounter [facility] 10-02-2023 Plan of care note Problem: Pain - Adult Goal: Verbalizes/displays adequate comfort level or baseline comfort level Outcome: Completed Problem: Safety - Adult Goal: Free from fall injury Outcome: Completed Problem: Discharge Planning Goal: Discharge to home or other facility with appropriate resources Outcome: Completed Problem: Chronic Conditions and Co-morbidities Goal: Patient's chronic conditions and co-morbidity symptoms are monitored and maintained or improved Outcome: Completed The patient is Moderately Stable - Low risk of patient condition declining or worsening The patient's goals for the shift include maintain safety The clinical goals for the shift include maintain safety; pain management Over the shift, the patient did not make progress toward the following goals. Barriers to progression include NA. Recommendations to address these barriers include NA. [facility] 10-02-2023 Miscellaneous Notes Problem: Pain - Adult Goal: Verbalizes/displays adequate comfort level or baseline comfort level Outcome: Completed Problem: Safety - Adult Goal: Free from fall injury Outcome: Completed Problem: Discharge Planning Goal: Discharge to home or other facility with appropriate resources Outcome: Completed Problem: Chronic Conditions and Co-morbidities Goal: Patient's chronic conditions and co-morbidity symptoms are monitored and maintained or improved Outcome: Completed The patient is Moderately Stable - Low risk of patient condition declining or worsening The patient's goals for the shift include maintain safety The clinical goals for the shift include maintain safety; pain management Over the shift, the patient did not make progress toward the following goals. Barriers to progression include NA. Recommendations to address these barriers include NA. documented in this encounter [facility] 10-01-2023 Telephone encounter Note LSG 12/03/2021- Suhail Last OV-08/10/23 with ID, next 02/04/24 with KMW Will route to clinical team for follow up [facility] 10-01-2023 Miscellaneous Notes LSG 12/03/2021- Pozsgay Last OV-08/10/23 with ID, next 02/04/24 with KMW Will route to clinical team for follow up documented in this encounter [facility] 10-01-2023 Emergency department Note Patient reports being clammy at this time. Patient A&Ox4 with no s/s of distress. VS taken. Melina Plata RN 10/01/23 1355 [facility] 10-01-2023 Emergency department Note Patient reports being clammy at this time. Patient A&Ox4 with no s/s of distress. VS taken. Melina Plata RN 10/01/23 1355 Following administration of soap suds enema, patient passed BM tinged fluids that were instilled. No bowel movement noted. JORDAN Neves notified. Melina Plata RN 10/01/23 1345 Soap suds enema administered. Patient tolerated 1500mL of fluids. Bedside commode setup at the bedside. Estela tech at bedside with this RN for administration. Melina Plata RN 10/01/23 1327 Patient reports morphine not helping with pain, requesting further medication. Melina Plata RN 10/01/23 1039 Patient reports no nausea at this time, would like to hold off on zofran. Patient reports that morphine does not ever help with diminishing pain, but open to try. Melina Plata RN 10/01/23 1038 EMERGENCY DEPARTMENT ENCOUNTER Pt Name: Titi Hicks Birthdate 1965 Date of evaluation: 10/01/2023 ED Provider: Marisel Fink APRN - NASRIN This patient was seen in conjunction with Dr. Marina CHIEF COMPLAINT Chief Complaint Patient presents with Incisional Pain Skin removal surgery completed on last Thursday09/23/2023. Pt complaint of incisional pain. Pt states that he has not had a BM in 8 days HISTORY OF PRESENT ILLNESS (Location/Symptom, Timing/Onset, Context/Setting, Quality, Duration, Modifying Factors, Severity) Note limiting factors. I wore appropriate PPE for the entirety of this encounter. HPI Titi Hicks is a 57 y.o. who presents to the emergency department with chief complaint of generalized abdominal pain no bowel movement in 8 days. Patient had panniculectomy on the , he has not had a bowel movement since then he is passing flatus. He has been taking MiraLAX, Colace and other things to try to help move his bowels but he states he has not had 1 bowel movement in the last 8 days. He had follow-up they want to leave his JOANNA drains in for another 1 to 2 weeks denies fevers or chills. He states he was driving the other day and he felt lightheaded and was diaphoretic felt like he was get a pass out. Denies chest pain currently. Denies any other complaints. Nursing Notes were reviewed. Limitations to history: None Outside historians: None REVIEW OF SYSTEMS Review of Systems Constitutional: Negative for activity change, appetite change, chills and fever. HENT: Negative for congestion, nosebleeds, postnasal drip, sore throat and trouble swallowing. Eyes: Negative for pain and visual disturbance. Respiratory: Negative for cough and shortness of breath. Cardiovascular: Positive for palpitations. Negative for chest pain. Gastrointestinal: Positive for abdominal pain and constipation. Negative for blood in stool, nausea and vomiting. Genitourinary: Negative for dysuria, flank pain, hematuria, penile discharge, scrotal swelling and testicular pain. Musculoskeletal: Negative for arthralgias, back pain and myalgias. Skin: Negative for rash and wound. Neurological: Positive for light-headedness. Negative for dizziness, syncope and weakness. Psychiatric/Behavioral: Negative for agitation and confusion. All other systems reviewed and are negative. Pertinent positives and negatives as per HPI. PAST MEDICAL HISTORY Past Medical History: Diagnosis Date Abdominal pain Atrial fibrillation (HCC) transient; resolved Awareness under anesthesia Back pain Benign essential HTN 01/29/2015 Blood circulation, collateral CAD (coronary artery disease) mild - dx on cath - neg stress Cerebral artery occlusion with cerebral infarction (HCC) Chronic kidney disease COPD (chronic obstructive pulmonary disease) (HCC) COVID-19 05/03 COVID-19 vaccine series completed 09/25/2020 Moderna COVID-19 vaccine series completed 12/04/2020 BOOSTER CS (cervical spondylosis) 12/25/2004 CERVICAL SPINE DJD Difficulty sleeping Dizziness GERD (gastroesophageal reflux disease) History of colonic polyps 06/21/2013 repeat 2019 Hyperlipidemia Hypothyroidism Insomnia 08/15/2014 Joint pain, hip Joint pain, knee Memory difficulties Muscle weakness Peripheral polyneuropathy 09/30/2020 Shortness of breath at rest Sleep apnea resolved with weight loss Snoring SOBOE (shortness of breath on exertion) Type 2 diabetes mellitus (HCC) 03/19/2021 resolved after weight loss SURGICAL HISTORY Past Surgical History: Procedure Laterality Date APPENDECTOMY BARIATRIC SURGERY 12/03/2021 Dr. Trevino CARDIAC CATHETERIZATION 12/17/2013 NORMAL CORONARY ARTERIES AND LVEF. COLONOSCOPY COLONOSCOPY 2020 CYSTOSCOPY 10/26/2020 CYSTOSCOPY 11/19/2020 CYSTOSCOPY 09/16/2023 EGD (HISTORICAL) 03/02/2023 NECK SURGERY Posterior cervical fusion PANNICULECTOMY (HISTORICAL) 09/23/2023 ROTATOR CUFF REPAIR Bilateral UPPER GASTROINTESTINAL ENDOSCOPY 01/24/2021 Dr. Cabello CURRENT MEDICATIONS Previous Medications ADVAIR DISKUS 250-50 MCG/ACT AEROSOL POWDER INHALE 1 PUFF INTO THE LUNGS TWICE DAILY ALPRAZOLAM (XANAX) 1 MG TABLET Take 1 mg by mouth every 24 hours as needed. ASPIRIN 81 MG EC TABLET 81 mg daily. ATORVASTATIN (LIPITOR) 80 MG TABLET Take 80 mg by mouth daily. BACLOFEN (LIORESAL) 10 MG TABLET Take 10 mg by mouth 2 times daily. BUMETANIDE (BUMEX) 1 MG TABLET Take 1 mg by mouth in the morning and 1 mg before bedtime. BUPROPION XL (WELLBUTRIN XL) 150 MG 24 HR TABLET Take 150 mg by mouth daily. BUSPIRONE (BUSPAR) 10 MG TABLET Take 10 mg by mouth 2 times daily. CALCIUM CITRATE 250 MG TABLET Take 2 tablets (500 mg) by mouth in the morning and 2 tablets (500 mg) at noon and 2 tablets (500 mg) before bedtime. Take 2 tablets by mouth three times daily.. CEPHALEXIN (KEFLEX) 500 MG CAPSULE Keflex 500mg take one pill twice daily CHOLESTYRAMINE (QUESTRAN) 4 G PACKET Every 24 hours. CONTINUOUS BLOOD GLUC SENSOR (sevenloadYLE ALEXANDRA 2 SENSOR) [facility] USE DIRECTED; CHANGE SENSOR EVERY 14 DAYS DICYCLOMINE (BENTYL) 10 MG CAPSULE Take 10 mg by mouth in the morning and 10 mg at noon and 10 mg in the evening and 10 mg before bedtime. EMOLLIENT (AQUAPHOR ADVANCED THERAPY) OINTMENT apply to affected area up to four times a day FINASTERIDE (PROSCAR) 5 MG TABLET Take 1 tablet (5 mg) by mouth daily. Do not crush, chew, or split. FLUTICASONE (FLONASE) 50 MCG/ACT NASAL SPRAY Every 24 hours. GABAPENTIN (NEURONTIN) 300 MG CAPSULE Take 600 mg by mouth 3 times daily. LEVOTHYROXINE (SYNTHROID, LEVOXYL) 75 MCG TABLET METHOCARBAMOL (ROBAXIN) 750 MG TABLET Take 1 tablet (750 mg) by mouth in the morning and 1 tablet (750 mg) at noon and 1 tablet (750 mg) in the evening and 1 tablet (750 mg) before bedtime. Do all this for 10 days. MULTIPLE VITAMINS-MINERALS (MULTIVITAMIN ADULTS 50+ PO) Take by mouth. ONDANSETRON (ZOFRAN) 8 MG TABLET Take 1 tablet (8 mg) by mouth every 8 hours as needed for nausea or vomiting for up to 7 days. OXYCODONE-ACETAMINOPHEN (PERCOCET) 5-325 MG TABLET Take 1 tablet by mouth every 6 hours as needed for severe pain (7-10) for up to 3 days. PANTOPRAZOLE (PROTONIX) 40 MG EC TABLET take 1 tablet by mouth once daily PHENAZOPYRIDINE (PYRIDIUM) 200 MG TABLET Take 1 tablet (200 mg) by mouth 3 times daily as needed for bladder spasms. SERTRALINE (ZOLOFT) 50 MG TABLET Take 50 mg by mouth daily. TADALAFIL (CIALIS) 5 MG TABLET Take 1 tablet (5 mg) by mouth daily. TAMSULOSIN (FLOMAX) 0.4 MG 24 HR CAPSULE Take 1 capsule (0.4 mg) by mouth daily. TIZANIDINE (ZANAFLEX) 2 MG TABLET Take 2 mg by mouth 2 times daily as needed. VENTOLIN HFA 108 (90 BASE) MCG/ACT INHALER Inhale 2 puffs every 6 hours as needed. ZINC GLUCONATE 50 MG TABLET Take 1 tablet by mouth daily. ALLERGIES Iodinated contrast media and Nsaids FAMILY HISTORY Family History Problem Relation Name Age of Onset Osteoarthritis Mother Lung cancer Mother smoker Coronary artery disease Other SOCIAL HISTORY Social History Socioeconomic History Marital status: Tobacco Use Smoking status: Never Smokeless tobacco: Never Vaping Use Vaping status: Never Used Substance and Sexual Activity Alcohol use: Never Drug use: No Social Determinants of Health Food Insecurity: No Food Insecurity (08/18/2023) Hunger Vital Sign Worried About Running Out of Food in the Last Year: Never true Ran Out of Food in the Last Year: Never true Transportation Needs: No Transportation Needs (08/18/2023) PRAPARE - Transportation Lack of Transportation (Medical): No Lack of Transportation (Non-Medical): No Intimate Partner Violence: Not At Risk (09/23/2023) Humiliation, Afraid, Rape, and Kick questionnaire Fear of Current or Ex-Partner: No Emotionally Abused: No Physically Abused: No Sexually Abused: No Housing Stability: Unknown (08/18/2023) Housing Stability Vital Sign Unable to Pay for Housing in the Last Year: No Unstable Housing in the Last Year: No SCREENINGS PHYSICAL EXAM ED Triage Vitals [10/01/23 0852] Temp Heart Rate Resp BP 36.8 C (98.3 F) 77 20 125/81 SpO2 Temp Source Heart Rate Source Patient Position 100 % Oral Monitor -- BP Location FiO2 (%) -- -- Physical Exam Vitals and nursing note reviewed. Constitutional: General: He is not in acute distress. Appearance: Normal appearance. He is not ill-appearing or toxic-appearing. HENT: Head: Normocephalic and atraumatic. Right Ear: External ear normal. Left Ear: External ear normal. Mouth/Throat: Mouth: Mucous membranes are moist. Pharynx: Oropharynx is clear. Eyes: Extraocular Movements: Extraocular movements intact. Conjunctiva/sclera: Conjunctivae normal. Pupils: Pupils are equal, round, and reactive to light. Cardiovascular: Comments: Regular rate and rhythm, normal S1-S2, no murmurs noted. Radial pulses 2+ and symmetric. Pulmonary: Effort: Pulmonary effort is normal. No respiratory distress. Breath sounds: Normal breath sounds. No stridor. No wheezing or rhonchi. Abdominal: Comments: The abdomen is soft and nondistended, large panniculectomy incision noted from the left lateral lower abdomen to the right lateral lower abdomen [address] no erythema or fluctuance noted there are bowel sounds, generalized tenderness throughout the abdomen. Musculoskeletal: General: No swelling, tenderness, deformity or signs of injury. Normal range of motion. Cervical back: Normal range of motion and neck supple. No rigidity or tenderness. Lymphadenopathy: Cervical: No cervical adenopathy. Skin: General: Skin is warm and dry. Capillary Refill: Capillary refill takes less than 2 seconds. Coloration: Skin is not jaundiced or pale. Findings: No bruising or erythema. Neurological: General: No focal deficit present. Mental Status: He is alert and oriented to person, place, and time. Mental status is at baseline. Cranial Nerves: No cranial nerve deficit. Sensory: No sensory deficit. Motor: No weakness. Coordination: Coordination normal. Psychiatric: Mood and Affect: Mood normal. DIAGNOSTIC RESULTS Procedures/EKG: EKG was reviewed by myself. Physician EKG interpretation can be found in [facility] RADIOLOGY (Per Emergency Physician): Interpretation per the Radiologist below, if available at the time of this note: CT abdomen pelvis wo IV contrast Final Result Noncontrast CT of the abdomen and pelvis is negative for acute process. The bowel gas pattern is nonobstructive. Postsurgical changes are present, consistent with recent panniculectomy. No evidence of fluid collection. Report Dictated on Electronically Signed By: Corby De La Garza DO Electronically Signed Date/Time: 10/01/2023 10:15 AM EDT ED BEDSIDE ULTRASOUND: Performed by ED Physician - none LABS: Labs Reviewed COMPREHENSIVE METABOLIC PANEL - Abnormal Result Value SODIUM 139 POTASSIUM 4.0 CHLORIDE 106 CARBON DIOXIDE 26 ANION GAP 7 UREA NITROGEN 15 CREATININE 1.12 GLUCOSE 104 (*) CALCIUM 8.6 AST (SGOT) 28 ALT 16 ALKALINE PHOSPHATASE 76 ALBUMIN 3.5 BILIRUBIN, TOTAL 0.7 TOTAL PROTEIN 6.5 eGFR 75.7 CBC (HEMOGRAM) - Abnormal Auto WBC 5.2 RBC 4.07 (*) Hemoglobin 12.0 (*) Hematocrit 35.0 (*) MCV 86.0 MCH 29.5 MCHC 34.3 RDW 12.6 Platelets 130 (*) MPV 8.1 (*) COMPLETE URINALYSIS - Abnormal Color, Urine Yellow Clarity, Urine Turbid (*) pH, Urine 7.5 Leukocytes, Urine 75 (*) Nitrite, Urine Negative Protein, Urine 30 (*) Glucose, Urine Normal Bilirubin, Urine Negative Ketones, Urine Negative Urobilinogen, Urine 4 (*) Blood, Urine Negative RBC, Urine 0-2 WBC, Urine 6-10 (*) Squamous Epithelial, Urine Negative Bacteria, Urine Moderate (*) Mucus, Urine Moderate (*) Amorphous Crystals, Urine Moderate (*) Yeast, Urine Few (*) Hyaline Casts, Urine 3-5 (*) SPECIFIC GRAVITY OF URINE (NUMERIC) 1.023 TROPONIN I - Normal TROPONIN I <0.012 Narrative: Patients with high levels of Biotin oral intake (ie >5 mg/day) may have falsely decreased Troponin levels. LIPASE - Normal LIPASE 55 COMPLETE URINALYSIS WITH REFLEX TO CULTURE Narrative: The following orders were created for panel order Urinalysis complete with reflex to Culture. Procedure Abnormality Status --------- ------ Complete Urinalysis[[id number]] Abnormal Final result Please view results for these tests on the individual orders. All other labs were within normal range or not returned as of this dictation. EMERGENCY DEPARTMENT COURSE and DIFFERENTIAL DIAGNOSIS/MDM: Vitals: Vitals: 10/01/23 0852 10/01/23 1116 10/01/23 1330 10/01/23 1355 BP: 125/81 109/67 115/70 115/85 Pulse: 77 67 84 107 Resp: 20 18 Temp: 36.8 C (98.3 F) TempSrc: Oral SpO2: 100% 100% 100% 96% Diagnoses as of 10/01/23 1400 Status post panniculectomy Generalized abdominal pain Constipation, unspecified constipation type Lightheadedness Near syncope The patient presented with chief complaint of with chief complaint of generalized abdominal pain no bowel movement in 8 days. Patient had panniculectomy on the , he has not had a bowel movement since then he is passing flatus. He has been taking MiraLAX, Colace and other things to try to help move his bowels but he states he has not had 1 bowel movement in the last 8 days. He had follow-up they want to leave his JOANNA drains in for another 1 to 2 weeks denies fevers or chills. He states he was driving the other day and he felt lightheaded and was diaphoretic felt like he was get a pass out. Denies chest pain currently. Denies any other complaints.. The differential diagnosis associated with this patient's presentation includes intra-abdominal abscess, obstipation, constipation, bowel obstruction, ACS, cardiac arrhythmia. Our workup consisted of ordering/reviewing: CBC, CMP, troponin, urinalysis, CT abdomen pelvis without contrast, EKG. Diagnostic tests considered but not performed: none To aid in management, I performed an independent interpretation of EKG(s) EKG per my interpretation shows sinus rhythm rate of [address] elevation or depression with normal intervals. I also reviewed external records from none. I discussed their care with I did discuss the case with Dr. Gutierrez's PA they were amenable to adding Metamucil in addition to the senna and MiraLAX to increase bowel movements. Consideration for escalation of care with: Admission/observation will admit the patient because of the near syncopal episodes think the near syncopal episodes are likely because of the abdominal pain creating some sort of vasovagal response but will trend his enzymes and admit him to the CDU and put him on a bowel regimen. The patient will be Admitted. Patient is in agreement with this plan. Medications sodium chloride 0.9 % infusion (125 mL/hr IntraVENous New Bag 10/01/23 1130) sodium chloride 0.9 % bolus 1,000 mL (0 mL IntraVENous Stopped 10/01/23 1120) morphine injection 4 mg (4 mg IntraVENous Given 10/01/23 1019) ondansetron (Zofran) injection 4 mg (4 mg IntraVENous Given 10/01/23 1134) HYDROmorphone (Dilaudid) injection 1 mg (1 mg IntraVENous Given 10/01/23 1116) HYDROmorphone (Dilaudid) injection 0.5 mg (0.5 mg IntraVENous Given 10/01/23 1259) REVAL: CRITICAL CARE TIME None CONSULTS: None PROCEDURES: Unless otherwise noted below, none Procedures Patients symptoms are consistent with sepsis, severe sepsis, or septic shock (If yes use .sepsiscoremeasure): no FINAL IMPRESSION 1. Lightheadedness 2. Status post panniculectomy 3. Generalized abdominal pain 4. Constipation, unspecified constipation type 5. Near syncope DISPOSITION Admit 10/01/2023 02:00:42 PM PATIENT REFERRED TO: Beto Gutierrez MD [address] [place] [phone] Schedule an appointment as soon as possible for a visit DISCHARGE MEDICATIONS: New Prescriptions PSYLLIUM (METAMUCIL) 58.6 % POWDER Take 5.12 g (3 g of fiber) by mouth 2 times daily. (Comment: Please note this report has been produced using speech recognition software and may contain errors related to that system including errors in grammar, punctuation, and spelling, as well as words and phrases that may be inappropriate. If there are any questions or concerns please feel free to contact the dictating provider for clarification.) GREG Lawrence CNP (electronically signed) Emergency Medicine Provider GREG Lawrence CNP 10/01/23 1401 Emergency Department Encounter [facility] ED Patient: Sophie Hicks : 1965 Date of Evaluation: 10/01/2023 ED Supervising Physician: Louisa Marina MD I personally saw Sophie Hicks and made/approved the management plan and take responsibility for the patient management. In brief, Titi Hicks is a 57 y.o. that presents to the emergency department for evaluation of a episode of feeling hot flushed and lightheaded while he was driving today. Patient states that has since resolved. He did not have any chest pain or palpitations during that episode. Denies any shortness of breath. Patient recently had a panniculectomy and is having some increased pain in both of the flanks where he has JOANNA drains in place. Denies any dizziness or room spinning sensation. Patient has not had a bowel movement since surgery 8 days ago and is passing flatus. Focused exam: General appearance: Well-appearing, no acute distress. Psych: Awake alert and oriented 3. Pleasant and cooperative. Skin: Warm and dry. Neck: Supple. Cardiovascular: Regular rate and rhythm. Lungs: Clear to auscultation bilaterally, no accessory muscle use, tachypnea, or retractions. Abdomen: Soft, surgical incision appears clean dry and intact there is very minimal erythema around the right JOANNA drain insertion site mild diffuse tenderness across lower abdomen more so at the insertion site of the JOANNA drains., and nondistended, no rebound, rigidity, or guarding, positive bowel sounds 4 quadrants. Extremities: Warm and well perfused. NROM and SILT throughout upper and lower extermities. Brief ED course/MDM: Patient presents emergency department for evaluation of some increasing abdominal pain, constipation, as well as a episode where he felt lightheaded and near syncopal. EMERGENCY DEPARTMENT COURSE and DIFFERENTIAL DIAGNOSIS/MDM: Vitals: Vitals: 10/01/23 0852 10/01/23 1116 BP: 125/81 109/67 Pulse: 77 67 Resp: 20 18 Temp: 36.8 C (98.3 F) TempSrc: Oral SpO2: 100% 100% All diagnostic, treatment, and disposition decisions were made by myself in conjunction with the CODI/Resident. I also supervised plaza portions of any procedures performed by the CODI/Resident. For all further details of the patient's emergency department visit, please see their documentation. This will serve as my supervisory note and shared attestation. I did perform a substantiative portion of the visit including all aspects of the medical decision making. (Please note that portions of this note may have been completed with a voice recognition program. Efforts were made to edit the dictations but occasionally words are mis-transcribed.) Louisa Marina MD Acute Care [facility] Louisa Marina MD 10/01/23 1146 Pt states that he had skin removal last Thursday09/23/2023. He is complaining of incision /ABD pain. He informed me that he has not had a BM for 8 days. His incision looks good and no drainage noted. He has a JOANNA drains bilaterally, both with small amounts of red drainage. He states he drained them this AM. EMS gave him oral Zofran. documented in this encounter [facility] 10-01-2023 Hospital Discharg e instructions GREG Lawrence CNP - 10/01/2023 1:51 PM EDT Try the methocarbamol as they recommended for the abdominal pain and back off of the opiates as they are worsening the constipation. I want you to do the senna twice a day, Metamucil twice a day and the MiraLAX once a day and follow-up with your surgeon. GREG Ramos CNP - 10/02/2023 2:49 PM EDT May resume previous activity GREG Ramos CNP - 10/02/2023 2:50 PM EDT May resume previous diet, stay hydrated, drink 2L water per day to help stool softeners work The following attachments cannot be sent through Care Everywhere.Constipation Discharge Instructions, Adult (Honduran)Syncope (Fainting) Discharge Instructions (Honduran)documented in this encounter [facility] 10-01-2023 Emergency department Note Following administration of soap suds enema, patient passed BM tinged fluids that were instilled. No bowel movement noted. JORDAN Neves notified. Melina Plata RN 10/01/23 1345 [facility] 10-01-2023 Emergency department Note Soap suds enema administered. Patient tolerated 1500mL of fluids. Bedside commode setup at the bedside. odin Palmer at bedside with this RN for administration. Melina Plata RN 10/01/23 1327 [facility] 10-01-2023 Emergency department Note Patient reports morphine not helping with pain, requesting further medication. Melina Plata RN 10/01/23 1039 [facility] 10-01-2023 Emergency department Note Patient reports no nausea at this time, would like to hold off on zofran. Patient reports that morphine does not ever help with diminishing pain, but open to try. Melina Plata RN 10/01/23 1038 T [facility] 10-01-2023 Emergency department Triage note Pt states that he had skin removal last Thursday09/23/2023. He is complaining of incision /ABD pain. He informed me that he has not had a BM for 8 days. His incision looks good and no drainage noted. He has a JOANNA drains bilaterally, both with small amounts of red drainage. He states he drained them this AM. EMS gave him oral Zofran. [facility] 10-01-2023 Physician Emergency department Note EMERGENCY DEPARTMENT ENCOUNTER Pt Name: Titi Hicks Birthdate 1965 Date of evaluation: 10/01/2023 ED Provider: Marisel Fink, GREG - FERRYBOAT OPERATOR HELPER This patient was seen in conjunction with Dr. Marina CHIEF COMPLAINT Chief Complaint Patient presents with Incisional Pain Skin removal surgery completed on last Thursday09/23/2023. Pt complaint of incisional pain. Pt states that he has not had a BM in 8 days HISTORY OF PRESENT ILLNESS (Location/Symptom, Timing/Onset, Context/Setting, Quality, Duration, Modifying Factors, Severity) Note limiting factors. I wore appropriate PPE for the entirety of this encounter. HPI Titi Hicks is a 57 y.o. who presents to the emergency department with chief complaint of generalized abdominal pain no bowel movement in 8 days. Patient had panniculectomy on the , he has not had a bowel movement since then he is passing flatus. He has been taking MiraLAX, Colace and other things to try to help move his bowels but he states he has not had 1 bowel movement in the last 8 days. He had follow-up they want to leave his JOANNA drains in for another 1 to 2 weeks denies fevers or chills. He states he was driving the other day and he felt lightheaded and was diaphoretic felt like he was get a pass out. Denies chest pain currently. Denies any other complaints. Nursing Notes were reviewed. Limitations to history: None Outside historians: None REVIEW OF SYSTEMS Review of Systems Constitutional: Negative for activity change, appetite change, chills and fever. HENT: Negative for congestion, nosebleeds, postnasal drip, sore throat and trouble swallowing. Eyes: Negative for pain and visual disturbance. Respiratory: Negative for cough and shortness of breath. Cardiovascular: Positive for palpitations. Negative for chest pain. Gastrointestinal: Positive for abdominal pain and constipation. Negative for blood in stool, nausea and vomiting. Genitourinary: Negative for dysuria, flank pain, hematuria, penile discharge, scrotal swelling and testicular pain. Musculoskeletal: Negative for arthralgias, back pain and myalgias. Skin: Negative for rash and wound. Neurological: Positive for light-headedness. Negative for dizziness, syncope and weakness. Psychiatric/Behavioral: Negative for agitation and confusion. All other systems reviewed and are negative. Pertinent positives and negatives as per HPI. PAST MEDICAL HISTORY Past Medical History: Diagnosis Date Abdominal pain Atrial fibrillation (HCC) transient; resolved Awareness under anesthesia Back pain Benign essential HTN 01/29/2015 Blood circulation, collateral CAD (coronary artery disease) mild - dx on cath - neg stress Cerebral artery occlusion with cerebral infarction (HCC) Chronic kidney disease COPD (chronic obstructive pulmonary disease) (HCC) COVID-19 05/03 COVID-19 vaccine series completed 09/25/2020 Moderna COVID-19 vaccine series completed 12/04/2020 BOOSTER CS (cervical spondylosis) 12/25/2004 CERVICAL SPINE DJD Difficulty sleeping Dizziness GERD (gastroesophageal reflux disease) History of colonic polyps 06/21/2013 repeat 2019 Hyperlipidemia Hypothyroidism Insomnia 08/15/2014 Joint pain, hip Joint pain, knee Memory difficulties Muscle weakness Peripheral polyneuropathy 09/30/2020 Shortness of breath at rest Sleep apnea resolved with weight loss Snoring SOBOE (shortness of breath on exertion) Type 2 diabetes mellitus (HCC) 03/19/2021 resolved after weight loss SURGICAL HISTORY Past Surgical History: Procedure Laterality Date APPENDECTOMY BARIATRIC SURGERY 12/03/2021 Dr. Trevino CARDIAC CATHETERIZATION 12/17/2013 NORMAL CORONARY ARTERIES AND LVEF. COLONOSCOPY COLONOSCOPY 2020 CYSTOSCOPY 10/26/2020 CYSTOSCOPY 11/19/2020 CYSTOSCOPY 09/16/2023 EGD (HISTORICAL) 03/02/2023 NECK SURGERY Posterior cervical fusion PANNICULECTOMY (HISTORICAL) 09/23/2023 ROTATOR CUFF REPAIR Bilateral UPPER GASTROINTESTINAL ENDOSCOPY 01/24/2021 Dr. Cabello CURRENT MEDICATIONS Previous Medications ADVAIR DISKUS 250-50 MCG/ACT AEROSOL POWDER INHALE 1 PUFF INTO THE LUNGS TWICE DAILY ALPRAZOLAM (XANAX) 1 MG TABLET Take 1 mg by mouth every 24 hours as needed. ASPIRIN 81 MG EC TABLET 81 mg daily. ATORVASTATIN (LIPITOR) 80 MG TABLET Take 80 mg by mouth daily. BACLOFEN (LIORESAL) 10 MG TABLET Take 10 mg by mouth 2 times daily. BUMETANIDE (BUMEX) 1 MG TABLET Take 1 mg by mouth in the morning and 1 mg before bedtime. BUPROPION XL (WELLBUTRIN XL) 150 MG 24 HR TABLET Take 150 mg by mouth daily. BUSPIRONE (BUSPAR) 10 MG TABLET Take 10 mg by mouth 2 times daily. CALCIUM CITRATE 250 MG TABLET Take 2 tablets (500 mg) by mouth in the morning and 2 tablets (500 mg) at noon and 2 tablets (500 mg) before bedtime. Take 2 tablets by mouth three times daily.. CEPHALEXIN (KEFLEX) 500 MG CAPSULE Keflex 500mg take one pill twice daily CHOLESTYRAMINE (QUESTRAN) 4 G PACKET Every 24 hours. CONTINUOUS BLOOD GLUC SENSOR (FREESTYLE ALEXANDRA 2 SENSOR) [facility] USE DIRECTED; CHANGE SENSOR EVERY 14 DAYS DICYCLOMINE (BENTYL) 10 MG CAPSULE Take 10 mg by mouth in the morning and 10 mg at noon and 10 mg in the evening and 10 mg before bedtime. EMOLLIENT (AQUAPHOR ADVANCED THERAPY) OINTMENT apply to affected area up to four times a day FINASTERIDE (PROSCAR) 5 MG TABLET Take 1 tablet (5 mg) by mouth daily. Do not crush, chew, or split. FLUTICASONE (FLONASE) 50 MCG/ACT NASAL SPRAY Every 24 hours. GABAPENTIN (NEURONTIN) 300 MG CAPSULE Take 600 mg by mouth 3 times daily. LEVOTHYROXINE (SYNTHROID, LEVOXYL) 75 MCG TABLET METHOCARBAMOL (ROBAXIN) 750 MG TABLET Take 1 tablet (750 mg) by mouth in the morning and 1 tablet (750 mg) at noon and 1 tablet (750 mg) in the evening and 1 tablet (750 mg) before bedtime. Do all this for 10 days. MULTIPLE VITAMINS-MINERALS (MULTIVITAMIN ADULTS 50+ PO) Take by mouth. ONDANSETRON (ZOFRAN) 8 MG TABLET Take 1 tablet (8 mg) by mouth every 8 hours as needed for nausea or vomiting for up to 7 days. OXYCODONE-ACETAMINOPHEN (PERCOCET) 5-325 MG TABLET Take 1 tablet by mouth every 6 hours as needed for severe pain (7-10) for up to 3 days. PANTOPRAZOLE (PROTONIX) 40 MG EC TABLET take 1 tablet by mouth once daily PHENAZOPYRIDINE (PYRIDIUM) 200 MG TABLET Take 1 tablet (200 mg) by mouth 3 times daily as needed for bladder spasms. SERTRALINE (ZOLOFT) 50 MG TABLET Take 50 mg by mouth daily. TADALAFIL (CIALIS) 5 MG TABLET Take 1 tablet (5 mg) by mouth daily. TAMSULOSIN (FLOMAX) 0.4 MG 24 HR CAPSULE Take 1 capsule (0.4 mg) by mouth daily. TIZANIDINE (ZANAFLEX) 2 MG TABLET Take 2 mg by mouth 2 times daily as needed. VENTOLIN HFA 108 (90 BASE) MCG/ACT INHALER Inhale 2 puffs every 6 hours as needed. ZINC GLUCONATE 50 MG TABLET Take 1 tablet by mouth daily. ALLERGIES Iodinated contrast media and Nsaids FAMILY HISTORY Family History Problem Relation Name Age of Onset Osteoarthritis Mother Lung cancer Mother smoker Coronary artery disease Other SOCIAL HISTORY Social History Socioeconomic History Marital status: Tobacco Use Smoking status: Never Smokeless tobacco: Never Vaping Use Vaping status: Never Used Substance and Sexual Activity Alcohol use: Never Drug use: No Social Determinants of Health Food Insecurity: No Food Insecurity (08/18/2023) Hunger Vital Sign Worried About Running Out of Food in the Last Year: Never true Ran Out of Food in the Last Year: Never true Transportation Needs: No Transportation Needs (08/18/2023) PRAPARE - Transportation Lack of Transportation (Medical): No Lack of Transportation (Non-Medical): No Intimate Partner Violence: Not At Risk (09/23/2023) Humiliation, Afraid, Rape, and Kick questionnaire Fear of Current or Ex-Partner: No Emotionally Abused: No Physically Abused: No Sexually Abused: No Housing Stability: Unknown (08/18/2023) Housing Stability Vital Sign Unable to Pay for Housing in the Last Year: No Unstable Housing in the Last Year: No SCREENINGS PHYSICAL EXAM ED Triage Vitals [10/01/23 0852] Temp Heart Rate Resp BP 36.8 C (98.3 F) 77 20 125/81 SpO2 Temp Source Heart Rate Source Patient Position 100 % Oral Monitor -- BP Location FiO2 (%) -- -- Physical Exam Vitals and nursing note reviewed. Constitutional: General: He is not in acute distress. Appearance: Normal appearance. He is not ill-appearing or toxic-appearing. HENT: Head: Normocephalic and atraumatic. Right Ear: External ear normal. Left Ear: External ear normal. Mouth/Throat: Mouth: Mucous membranes are moist. Pharynx: Oropharynx is clear. Eyes: Extraocular Movements: Extraocular movements intact. Conjunctiva/sclera: Conjunctivae normal. Pupils: Pupils are equal, round, and reactive to light. Cardiovascular: Comments: Regular rate and rhythm, normal S1-S2, no murmurs noted. Radial pulses 2+ and symmetric. Pulmonary: Effort: Pulmonary effort is normal. No respiratory distress. Breath sounds: Normal breath sounds. No stridor. No wheezing or rhonchi. Abdominal: Comments: The abdomen is soft and nondistended, large panniculectomy incision noted from the left lateral lower abdomen to the right lateral lower abdomen [address] no erythema or fluctuance noted there are bowel sounds, generalized tenderness throughout the abdomen. Musculoskeletal: General: No swelling, tenderness, deformity or signs of injury. Normal range of motion. Cervical back: Normal range of motion and neck supple. No rigidity or tenderness. Lymphadenopathy: Cervical: No cervical adenopathy. Skin: General: Skin is warm and dry. Capillary Refill: Capillary refill takes less than 2 seconds. Coloration: Skin is not jaundiced or pale. Findings: No bruising or erythema. Neurological: General: No focal deficit present. Mental Status: He is alert and oriented to person, place, and time. Mental status is at baseline. Cranial Nerves: No cranial nerve deficit. Sensory: No sensory deficit. Motor: No weakness. Coordination: Coordination normal. Psychiatric: Mood and Affect: Mood normal. DIAGNOSTIC RESULTS Procedures/EKG: EKG was reviewed by myself. Physician EKG interpretation [facility] RADIOLOGY (Per Emergency Physician): Interpretation per the Radiologist below, if available at the time of this note: CT abdomen pelvis wo IV contrast Final Result Noncontrast CT of the abdomen and pelvis is negative for acute process. The bowel gas pattern is nonobstructive. Postsurgical changes are present, consistent with recent panniculectomy. No evidence of fluid collection. Report Dictated on Electronically Signed By: Corby De La Garza DO Electronically Signed Date/Time: 10/01/2023 10:15 AM EDT ED BEDSIDE ULTRASOUND: Performed by ED Physician - none LABS: Labs Reviewed COMPREHENSIVE METABOLIC PANEL - Abnormal Result Value SODIUM 139 POTASSIUM 4.0 CHLORIDE 106 CARBON DIOXIDE 26 ANION GAP 7 UREA NITROGEN 15 CREATININE 1.12 GLUCOSE 104 (*) CALCIUM 8.6 AST (SGOT) 28 ALT 16 ALKALINE PHOSPHATASE 76 ALBUMIN 3.5 BILIRUBIN, TOTAL 0.7 TOTAL PROTEIN 6.5 eGFR 75.7 CBC (HEMOGRAM) - Abnormal Auto WBC 5.2 RBC 4.07 (*) Hemoglobin 12.0 (*) Hematocrit 35.0 (*) MCV 86.0 MCH 29.5 MCHC 34.3 RDW 12.6 Platelets 130 (*) MPV 8.1 (*) COMPLETE URINALYSIS - Abnormal Color, Urine Yellow Clarity, Urine Turbid (*) pH, Urine 7.5 Leukocytes, Urine 75 (*) Nitrite, Urine Negative Protein, Urine 30 (*) Glucose, Urine Normal Bilirubin, Urine Negative Ketones, Urine Negative Urobilinogen, Urine 4 (*) Blood, Urine Negative RBC, Urine 0-2 WBC, Urine 6-10 (*) Squamous Epithelial, Urine Negative Bacteria, Urine Moderate (*) Mucus, Urine Moderate (*) Amorphous Crystals, Urine Moderate (*) Yeast, Urine Few (*) Hyaline Casts, Urine 3-5 (*) SPECIFIC GRAVITY OF URINE (NUMERIC) 1.023 TROPONIN I - Normal TROPONIN I <0.012 Narrative: Patients with high levels of Biotin oral intake (ie >5 mg/day) may have falsely decreased Troponin levels. LIPASE - Normal LIPASE 55 COMPLETE URINALYSIS WITH REFLEX TO CULTURE Narrative: The following orders were created for panel order Urinalysis complete with reflex to Culture. Procedure Abnormality Status --------- ------ Complete Urinalysis[[id number]] Abnormal Final result Please view results for these tests on the individual orders. All other labs were within normal range or not returned as of this dictation. EMERGENCY DEPARTMENT COURSE and DIFFERENTIAL DIAGNOSIS/MDM: Vitals: Vitals: 10/01/23 0852 10/01/23 1116 10/01/23 1330 10/01/23 1355 BP: 125/81 109/67 115/70 115/85 Pulse: 77 67 84 107 Resp: 20 18 Temp: 36.8 C (98.3 F) TempSrc: Oral SpO2: 100% 100% 100% 96% Diagnoses as of 10/01/23 1400 Status post panniculectomy Generalized abdominal pain Constipation, unspecified constipation type Lightheadedness Near syncope The patient presented with chief complaint of with chief complaint of generalized abdominal pain no bowel movement in 8 days. Patient had panniculectomy on the , he has not had a bowel movement since then he is passing flatus. He has been taking MiraLAX, Colace and other things to try to help move his bowels but he states he has not had 1 bowel movement in the last 8 days. He had follow-up they want to leave his JOANNA drains in for another 1 to 2 weeks denies fevers or chills. He states he was driving the other day and he felt lightheaded and was diaphoretic felt like he was get a pass out. Denies chest pain currently. Denies any other complaints.. The differential diagnosis associated with this patient's presentation includes intra-abdominal abscess, obstipation, constipation, bowel obstruction, ACS, cardiac arrhythmia. Our workup consisted of ordering/reviewing: CBC, CMP, troponin, urinalysis, CT abdomen pelvis without contrast, EKG. Diagnostic tests considered but not performed: none To aid in management, I performed an independent interpretation of EKG(s) EKG per my interpretation shows sinus rhythm rate of [address] elevation or depression with normal intervals. I also reviewed external records from none. I discussed their care with I did discuss the case with Dr. Gutierrez's PA they were amenable to adding Metamucil in addition to the senna and MiraLAX to increase bowel movements. Consideration for escalation of care with: Admission/observation will admit the patient because of the near syncopal episodes think the near syncopal episodes are likely because of the abdominal pain creating some sort of vasovagal response but will trend his enzymes and admit him to the CDU and put him on a bowel regimen. The patient will be Admitted. Patient is in agreement with this plan. Medications sodium chloride 0.9 % infusion (125 mL/hr IntraVENous New Bag 10/01/23 1130) sodium chloride 0.9 % bolus 1,000 mL (0 mL IntraVENous Stopped 10/01/23 1120) morphine injection 4 mg (4 mg IntraVENous Given 10/01/23 1019) ondansetron (Zofran) injection 4 mg (4 mg IntraVENous Given 10/01/23 1134) HYDROmorphone (Dilaudid) injection 1 mg (1 mg IntraVENous Given 10/01/23 1116) HYDROmorphone (Dilaudid) injection 0.5 mg (0.5 mg IntraVENous Given 10/01/23 1259) REVAL: CRITICAL CARE TIME None CONSULTS: None PROCEDURES: Unless otherwise noted below, none Procedures Patients symptoms are consistent with sepsis, severe sepsis, or septic shock (If yes use .sepsiscoremeasure): no FINAL IMPRESSION 1. Lightheadedness 2. Status post panniculectomy 3. Generalized abdominal pain 4. Constipation, unspecified constipation type 5. Near syncope DISPOSITION Admit 10/01/2023 02:00:42 PM PATIENT REFERRED TO: Beto Gutierrez MD [address] [place] [address] [id number] Schedule an appointment as soon as possible for a visit DISCHARGE MEDICATIONS: New Prescriptions PSYLLIUM (METAMUCIL) 58.6 % POWDER Take 5.12 g (3 g of fiber) by mouth 2 times daily. (Comment: Please note this report has been produced using speech recognition software and may contain errors related to that system including errors in grammar, punctuation, and spelling, as well as words and phrases that may be inappropriate. If there are any questions or concerns please feel free to contact the dictating provider for clarification.) Marisel Fink APRN - NASRIN (electronically signed) Emergency Medicine Provider GREG Lawrence CNP 10/01/23 1401 [facility] 10-01-2023 Physician Emergency department Note Emergency Department Encounter [facility] ED Patient: Sophie Hicks : 1965 Date of Evaluation: 10/01/2023 ED Supervising Physician: Louisa Marina MD I personally saw Sophie Hicks and made/approved the management plan and take responsibility for the patient management. In brief, Titi Hicks is a 57 y.o. that presents to the emergency department for evaluation of a episode of feeling hot flushed and lightheaded while he was driving today. Patient states that has since resolved. He did not have any chest pain or palpitations during that episode. Denies any shortness of breath. Patient recently had a panniculectomy and is having some increased pain in both of the flanks where he has JOANNA drains in place. Denies any dizziness or room spinning sensation. Patient has not had a bowel movement since surgery 8 days ago and is passing flatus. Focused exam: General appearance: Well-appearing, no acute distress. Psych: Awake alert and oriented 3. Pleasant and cooperative. Skin: Warm and dry. Neck: Supple. Cardiovascular: Regular rate and rhythm. Lungs: Clear to auscultation bilaterally, no accessory muscle use, tachypnea, or retractions. Abdomen: Soft, surgical incision appears clean dry and intact there is very minimal erythema around the right JOANNA drain insertion site mild diffuse tenderness across lower abdomen more so at the insertion site of the JOANNA drains., and nondistended, no rebound, rigidity, or guarding, positive bowel sounds 4 quadrants. Extremities: Warm and well perfused. NROM and SILT throughout upper and lower extermities. Brief ED course/MDM: Patient presents emergency department for evaluation of some increasing abdominal pain, constipation, as well as a episode where he felt lightheaded and near syncopal. EMERGENCY DEPARTMENT COURSE and DIFFERENTIAL DIAGNOSIS/MDM: Vitals: Vitals: 10/01/23 0852 10/01/23 1116 BP: 125/81 109/67 Pulse: 77 67 Resp: 20 18 Temp: 36.8 C (98.3 F) TempSrc: Oral SpO2: 100% 100% All diagnostic, treatment, and disposition decisions were made by myself in conjunction with the CODI/Resident. I also supervised plaza portions of any procedures performed by the CODI/Resident. For all further details of the patient's emergency department visit, please see their documentation. This will serve as my supervisory note and shared attestation. I did perform a substantiative portion of the visit including all aspects of the medical decision making. (Please note that portions of this note may have been completed with a voice recognition program. Efforts were made to edit the dictations but occasionally words are mis-transcribed.) Louisa Marina MD [employer] Louisa Marina MD 10/01/23 1146 [employer] Phone: 09-29-2023 History of Presen t illness Narrative Plastic Surgery Progress Note PATIENT NAME: Sophie Hicks TODAY'S DATE: 09/29/2023 SUBJECTIVE: Sophie Hicks is s/p panniculectomy (09/23/2023). Patient doing well. Reports he has not yet had a bowel movement since surgery. He has tried MiraLAX, Dulcolax, and glycerin suppositories without relief of his symptoms. He has been doubling up his doses of Percocet for pain control. Otherwise, patient was unaware he should be recording his drain output individually. OBJECTIVE: VITALS: There were no vitals taken for this visit. CONSTITUTIONAL: NAD RESPIRATORY: Nonlabored, No wheezing CV: HR/BP Stable ABDOMEN: Soft, NT, ND INCISION: Abdominal incision is clean, dry, and intact. Healing well by primary intention. Abdomen moderately tender to palpation. Bilateral abdominal drains were stripped aggressively in the office today. We will keep these in for at least another week. EXTREMITIES: ROM intact ASSESSMENT AND PLAN: Sophie Hicks is a 57 y.o. male s/p panniculectomy. -Continue use of compression stockings -Continue use of abdominal binder -Continue weight lifting restrictions -Continue drain care -Senokot prescribed, patient instructed to try and back off the narcotics for pain control as they are most likely exacerbating his constipation -Transition to methocarbamol for pain control - Follow up in 1 week The physician was present, and has seen and examined the patient at the bedside with me. documented in this encounter [facility] 09-28-2023 Note Addended by: SHERLYN COTA on: 09/28/2023 09:50 AM Modules accepted: Orders [facility] 09-28-2023 Miscellaneous Notes Addended by: SHERLYN DEL RIO on: 09/28/2023 09:50 AM Modules accepted: Orders Patient had Panniculectomy on 09/22. He called this morning requesting additional pain medication. He called Triage over the weekend due to unmanaged pain and DR. Vasquez advised that he take two Percocet 5-325 every 6 hours or 1 every 4 hours so he is going run out of medication faster than expected Patient cannot take NSAIDs due to Kidney disease. Dr. Vasquez advised that he add one extra strength Tylenol when/if he takes one Percocet every 4 hours. I asked if he has been taking the Tylenol and he stated that he would be asking his Primary Care Physician today if he can take the Tylenol. Patient also enquired about bruising and asked if it was normal. Reiterated that it is expected and let him know that he can send a picture if he would like for assessment. Patient will be in office for his post-op 09/29/23. Will contact Sherlyn Del Rio PA-C regarding patient's request and follow up with patient accordingly. documented in this encounter [facility] 09-28-2023 Telephone encounter Note Patient had Panniculectomy on 09/22. He called this morning requesting additional pain medication. He called Triage over the weekend due to unmanaged pain and DR. Vasquez advised that he take two Percocet 5-325 every 6 hours or 1 every 4 hours so he is going run out of medication faster than expected Patient cannot take NSAIDs due to Kidney disease. Dr. Vasquez advised that he add one extra strength Tylenol when/if he takes one Percocet every 4 hours. I asked if he has been taking the Tylenol and he stated that he would be asking his Primary Care Physician today if he can take the Tylenol. Patient also enquired about bruising and asked if it was normal. Reiterated that it is expected and let him know that he can send a picture if he would like for assessment. Patient will be in office for his post-op 09/29/23. Will contact Sherlyn Del Rio PA-C regarding patient's request and follow up with patient accordingly. [facility] 09-27-2023 Telephone encounter Note S: Patient spoke with [facility] nurse regarding increasing area of bruising. B: Onset of symptoms/concern yesterday, worse today. A: Panniculectomy surgery on 09/22. Patient spoke to [facility] last night regarding constant severe pain on the left side, oxycodone was increased to 2 tabs for severe pain per Dr. Vasquez when paged, which has been effective. Concern today is increasing bruising around bilateral hips and states left drain is producing a lot more than the right. Patient states he cannot make the follow-up appt on 09/28, needs to reschedule due to a scheduling conflict with another doctor appt. [facility] him Thursday to set up a start of care visit. R: Paged provider clinical transformation specialist. Spoke with Dr. Vasquez who advised that this was most probably normal bruising and it is not unusual for one side to drain more than the other. Advised to have patient call office in the morning to schedule a sooner appt if he would like to. Relayed message to patient who voiced understanding. No further needs at this time. Patient instructed to call back with new or worsening symptoms. Reason for Disposition [1] Caller has NON-URGENT question AND [2] triager unable to answer question Protocols used: Post-Op Symptoms and [id number] [employer] 09-27-2023 Miscellaneous Notes S: Patient spoke with [facility] nurse regarding increasing area of bruising. B: Onset of symptoms/concern yesterday, worse today. A: Panniculectomy surgery on 09/22. Patient spoke to [facility] last night regarding constant severe pain on the left side, oxycodone was increased to 2 tabs for severe pain per Dr. Vasquez when paged, which has been effective. Concern today is increasing bruising around bilateral hips and states left drain is producing a lot more than the right. Patient states he cannot make the follow-up appt on 09/28, needs to reschedule due to a scheduling conflict with another doctor appt. [facility] is supposed to be calling him Thursday to set up a start of care visit. R: Paged provider clinical transformation specialist. Spoke with Dr. Vasquez who advised that this was most probably normal bruising and it is not unusual for one side to drain more than the other. Advised to have patient call office in the morning to schedule a sooner appt if he would like to. Relayed message to patient who voiced understanding. No further needs at this time. Patient instructed to call back with new or worsening symptoms. Reason for Disposition [1] Caller has NON-URGENT question AND [2] triager unable to answer question Protocols used: Post-Op Symptoms and Hhmlfvglb-OPMYX-AS documented in this encounter [facility] 09-26-2023 Telephone encounter Note S: Patient spoke with CAC nurse regarding post op concern B: Onset of symptoms/concern today A: Patient had the following surgery on 09/23/2023: PANNICULECTOMY . Patient states he is having constant pain on the left side of his surgery. Current pain is 8/10. Patient is taking oxycodone-acetaminophen 5-325 mg tablets every 6 hours. Patient got 3 ounces of drainage from the drainage tubes since he has been home on 09/25/23. No redness. Afebrile. No dizziness, patient has shaking chills, and weakness. R: Nurse reached out to on-call provider via secure chat. Dr. Vasquez instructed the following, The patient can try taking TWO oxycodone tablets at once to see if this helps his pain. Also, he can take 400 mg of ibuprofen every 4 hours in between his oxycodone doses. One oxycodone q 6 hours is probably inadequate for his pain. Patient has kidney issues, unable to take NSAIDS. Per Dr. Vasquez, I hope the patient is eating and drinking, right? He's not a diabetic or anything like that, is he? If he was, I'd be wondering if his blood sugar was low. If he's not, then OK. Got it. Then he can try every 4 hour oxycodone doses for now. If he's only taking one oxycodone at a time (to make them last), he can add 500mg of acetaminophen (extra-strength Tylenol) to each oxydone dose. Nurse instructed Dr. Vasquez patient is eating, drinking, not a diabetic, can take extra strength tylenol. Nurse reviewed Dr. Vasquez's directives with patient who verbalized understanding. Patient instructed to call back with new or worsening symptoms. Reason for Disposition Severe pain in the incision Protocols used: Post-Op Incision Symptoms and Sdslpjttu-LREVL-XT [facility] 09-26-2023 Miscellaneous Notes S: Patient spoke with CAC nurse regarding post op concern B: Onset of symptoms/concern today A: Patient had the following surgery on 09/23/2023: PANNICULECTOMY . Patient states he is having constant pain on the left side of his surgery. Current pain is 8/10. Patient is taking oxycodone-acetaminophen 5-325 mg tablets every 6 hours. Patient got 3 ounces of drainage from the drainage tubes since he has been home on 09/25/23. No redness. Afebrile. No dizziness, patient has shaking chills, and weakness. R: Nurse reached out to on-call provider via secure chat. Dr. Vasquez instructed the following, The patient can try taking TWO oxycodone tablets at once to see if this helps his pain. Also, he can take 400 mg of ibuprofen every 4 hours in between his oxycodone doses. One oxycodone q 6 hours is probably inadequate for his pain. Patient has kidney issues, unable to take NSAIDS. Per Dr. Vasquez, I hope the patient is eating and drinking, right? He's not a diabetic or anything like that, is he? If he was, I'd be wondering if his blood sugar was low. If he's not, then OK. Got it. Then he can try every 4 hour oxycodone doses for now. If he's only taking one oxycodone at a time (to make them last), he can add 500mg of acetaminophen (extra-strength Tylenol) to each oxydone dose. Nurse instructed Dr. Vasquez patient is eating, drinking, not a diabetic, can take extra strength tylenol. Nurse reviewed Dr. Vasquez's directives with patient who verbalized understanding. Patient instructed to call back with new or worsening symptoms. Reason for Disposition Severe pain in the incision Protocols used: Post-Op Incision Symptoms and Vaitojkpt-JCWZR-AK documented in this encounter [facility] 09-25-2023 Nurse Note Gave patient discharge instructions. Changed Abdominal and JOANNA dressing. Reapplied Binder. Pannus incision with Tape intact. Lap sites intact with tape. No drainage noted. Gave patient instructions on s/s of infection and prevention. Instructed on JOANNA drain care and emptying/recording. Instructed on ambulating frequently, and importance of increasing water intake and regular bowel movements. Patient verbalized understanding. IV discontined. Meds to beds delivered scripts. [facility] 09-25-2023 Nurse Note Gave patient discharge instructions. Changed Abdominal and JOANNA dressing. Reapplied Binder. Pannus incision with Tape intact. Lap sites intact with tape. No drainage noted. Gave patient instructions on s/s of infection and prevention. Instructed on JOANNA drain care and emptying/recording. Instructed on ambulating frequently, and importance of increasing water intake and regular bowel movements. Patient verbalized understanding. IV discontined. Meds to beds delivered scripts. Encouraged patient to ambulate. Educated on benefits. Patient with pain uncontrolled. documented in this encounter [facility] 09-25-2023 Miscellaneous Notes Patient Choice Patient Name: SOPHIE HICKS Date of : 1965 All Providers Sent Referral Name: [facility] Phone: [phone] Address: [address] [place] [address] Start PACC Note Home Health Referral Educated patient on Home Care and services available. Patient offered choice of available HHC and agreeable to SN services with [facility] - Home Care. Care Types: None Isolation Precautions: No active isolations Social Determinates of Health: Tobacco Use: Low Risk (09/23/2023) Patient History Smoking Tobacco Use: Never Smokeless Tobacco Use: Never Passive Exposure: Not on file Social History Substance and Sexual Activity Alcohol Use Never Social History Substance and Sexual Activity Drug Use No Does the patient have any financial resource strain? No Does the patient have any food insecurities? No Does the patient have any housing instabilities? No If any of the above is noted as yes - consider a DIRECTOR CARD evaluation once the patient returns home. START PATIENT REGISTRATION INFORMATION Order Information Order Signing Physician: Beto Gutierrez MD Service Ordered RN ?: Yes Service Ordered PT ?: No Service Ordered OT ?: No Service Ordered ST ?: No Service Ordered DIRECTOR CARD?:No Service Ordered SPECIAL EDUCATION TEACHING ASSISTANT?: No Following Physician: WILIAM FERNANDEZ MD Following Physician Overseeing Physician: WILIAM FERNANDEZ MD (Required for Residents only) Agreeable to Follow? Yes Date/Time of Call 09/25/23 11:42 AM, Spoke with: Rafaela Care Coordination Same Day SOC?: No Primary Care Physician: WILIAM FERNANDEZ MD Primary Care Physician Primary Care Physician Address: [address] [place] [phone] Visit Instructions: Post surg f/u Service Discharge Location Type: Home with Home Health Care Service Facility Name: N/A Service Floor Facility: N/A Service Room No: N/A Demographics Patient Last Name: Kurt Patient First Name: Sophie Language/Communication Barrier: n/a Service Address: [address] [place] [address] Service City: [facility] ST: [place] Service ZIP: [address] Service (home) Other phone numbers: Telephone Information: Emergency Contact: Extended Emergency Contact Information Primary Emergency Contact: Ellie Hicks Relation: Spouse Admission Information Admit Date: 09/23/2023 Patient status at discharge: Inpatient Admitting Diagnosis: Localized adiposity [E65] Abdominal pannus [E65] Caregiver Information Caregiver First Name: n/a Caregiver Last Name: n/a Caregiver Relationship to Patient n/a Caregiver Phone Number: n/a Caregiver Notes: N/A [employer] List HIGHTECH: HI TECH - DRAIN CARE TYPE: JOANNA Drain ORDERS: Empty JOANNA drain PRN and replace bulb back to suction END PATIENT REGISTRATION INFORMATION Pt Home Health goal to care for self and have less pain COVID Status 1. Do you have any upper respiratory symptoms (cough, SOB, Fever)? No 2. Have you been exposed to anyone with COVID-19 Virus? No Answer only if pending or positive for COVID-19? 1. Agreeable to wear PPE at each visit? No 2. Is the hospital supplying them with PPE upon Discharge? No Start PACC Summary General Report/ Additional Comments Post op care- Shower daily/as desired with soap/water and pat dry. May place ABD over surgical tapes to prevent abdominal binder friction. Empty JOANNA drain PRN and replace bulb back to suction. May dress tube with split gauze. Discharge Date: 09/25/23 Referral Source-PACC: (Hospital/Unit): [facility] / [id number]/[id number] A End PACC Note The patient is Moderately Stable - Low risk of patient condition declining or worsening The patient's goals for the shift include pain management The clinical goals for the shift include pain management Problem: Pain - Adult Goal: Verbalizes/displays adequate comfort level or baseline comfort level Outcome: Progressing Problem: Safety - Adult Goal: Free from fall injury Outcome: Progressing Problem: Respiratory - Adult Goal: Achieves optimal ventilation and oxygenation Outcome: Progressing Problem: Skin/Tissue Integrity - Adult Goal: Skin integrity remains intact Outcome: Progressing Goal: Incisions, wounds, or drain sites healing without S/S of infection Outcome: Progressing Goal: Oral mucous membranes remain intact Outcome: Progressing Problem: Chronic Conditions and Co-morbidities Goal: Patient's chronic conditions and co-morbidity symptoms are monitored and maintained or improved Outcome: Progressing Problem: Pain - Adult Goal: Verbalizes/displays adequate comfort level or baseline comfort level Outcome: Progressing Problem: Safety - Adult Goal: Free from fall injury Outcome: Progressing Problem: Respiratory - Adult Goal: Achieves optimal ventilation and oxygenation Outcome: Progressing Problem: Skin/Tissue Integrity - Adult Goal: Skin integrity remains intact Outcome: Progressing Goal: Incisions, wounds, or drain sites healing without S/S of infection Outcome: Progressing Goal: Oral mucous membranes remain intact Outcome: Progressing Problem: Chronic Conditions and Co-morbidities Goal: Patient's chronic conditions and co-morbidity symptoms are monitored and maintained or improved Outcome: Progressing Video Rental Clerk following case for Discharge Needs. - callled Dr. Paiz's office to see if he would follow. Care Managment Initial Assessment Date: 09/24/2023 Patient Name: Sophie Hicks : 1965 Patient Information Source of Information: Patient Cognition/Language: WFL - Within Functional Limits Permission given to speak with patient territory account representative/caregiver as indicated: Yes Confirmation of Payer with patient/family: Yes Payer Name: Medicare A/B : No Confirmation of Primary Care Physician: Confirmed PCP Name: Dr. Wiliam Fernandez Seen in last 2 years?: Yes Primary Caregiver: Self If assistance needed, confirmed caregiver ready, willing and able to care for patient at discharge: Yes Confirmed with: Spouse Ellie Living Arrangements Current Residence: House Number of Floors 2 Number of Entry Steps: 2 (basement level laundry. chair lift was present in home w purchased by patient. Able to use if needed) Bed/Bath Levels: Both first floor Facility: Facility Name: Plan to Return: Lives with: Spouse/significant other Support Systems: Spouse/significant other Activities of Daily Living Ambulation: Independent Bathing/Dressing: Independent Elimination/Continence/Toileting: Independent Feeding: Independent Who Assists with Activities of Daily Living: Self Instrumental Activities of Daily Living Prescription Coverage: Yes Pharmacy Used: [facility] Medication Management: Independent Transportation/Shopping: Independent Transportation Mode: Car Needs Assistance with Transportation at Discharge: No Meal Preparation: Independent Laundry/Cleaning: Assistance Provider Laundry/Cleaning Assistance Provider Name: spouse can complete Finances/Bill Paying: Communication: Independent Types of Care Services/Equipment Utilized Care Services: (Not active with any services at present.) Dialysis Type: NA Durable Medical Equipment: Walker (N/A) DME Provider: Lebron Patient's Goal/Discharge Plan Patient expects to be discharged to: Pt requesting short term home care nursing services to assist w dressing changes. [facility] informed to follow Discharge Planning Actions: Continue to follow Patient's Choice Rights and [employer] and Collaborative Relationships Disclosed as Indicated for Post-Acute Care: Yes Interdisciplinary Team Engagement: Home Health Care Social Work Referral for: (Patient denies needs at present time.) Additional Information: Pt admitted for elective abdominal panniculectomy with Dr. Gutierrez 09/23/23. Post op pt with bilateral JOANNA drains maintained Diet as tolerated. Pain uncontrolled. Medications titrated w goal to de escalate IV narcotic need and transition to po for dc. Ia Completed with pt at bedside. Tcc introduced self and role. Pt verified insurance provider, PCP and pharmacy as noted in Epic. Pt reports being indep uses no DME currently. Indep adls and iadls. Has a walker. Spouse Ellie is emergency contact and ride home at me. Pt requesting home care nurse for wound/care/incisional care at me. Tcc messaged [facility] liaison to follow up. MOP home w [facility]. Task placed to [facility] liaison. Hellen Gandara RN Operative Note Patient: Sophie Hicks Date of : 1965 [id number] Date of Procedure: 09/23/23 Pre-Op Diagnosis: Symptomatic Abdominal Pannus Post-Op Diagnosis: Same Surgeon: Beto Gutierrez MD Operation: Panniculectomy Anesthesia: General Estimated Blood Loss (mL): 100 Complications: None Detailed Description of Procedure: Operative indication: Patient is a 57 year old male who underwent bariatric surgery. Patient developed symptomatic abdominal pannus with lower back pain, stretching, fungal infections, skin breakdown. This persisted despite conservative measures, compression garments, antifungal treatment, skin care, meticulous hygiene. Patient now presents for definitive panniculectomy. Operative note: Patient was marked and consented in the preoperative area, taken to the operating room, prepped and draped in the usual manner, 2 g of Ancef 40 mg of Lovenox were administered, a bilateral tap Block was performed, and a timeout was performed. I began by confirming her lower abdominal incisions. I then incised through the skin subcutaneous tissue down to the abdominal wall. At that time I elected to keep the umbilicus because it appeared viable. We then cut around the umbilicus in a cone like manner down to the abdominal wall. I then lifted the abdominal pannus off of the abdominal wall and confirmed our superior weaver. I then resected the abdominal pannus and weight this. This weighed approximately 3514g. After this, I irrigated with 2 L of saline, performed quilting sutures in the midline, placed 2, 19 Cymro channel drains, and began closure. I closed the Junior's with 0-0 stratafix laterally and interrupted 0 Vicryl sutures near the midline. I then closed the dermis with interrupted 3-0 Monocryl and Insorb ana. I then closed the dermis with running 3-0 Monocryl. 2 19 Cymro channel drains were secured with 3-0 nylon. All counts were correct. Patient was extubated taken to PACU in expected to make a good recovery. Beto Gutierrez MD Date: 09/23/2023 Location: [facility] OR Name: Sophie Hicks, : 1965, Diagnosis Pre-op Diagnosis * Localized adiposity [E65] Post-op Diagnosis * Localized adiposity [E65] Procedures PANNICULECTOMY 53480 - IN EXCISION SKIN ABD INFRAUMBILICAL PANNICULECTOMY Surgeons * Beto Gutierrez - Primary Procedure Summary Anesthesia: General ASA: III Estimated Blood Loss: 50 mL Drains: Closed/Suction Drain Lateral RLQ Bulb 19 Fr. (Active) Closed/Suction Drain Lateral LLQ Bulb 19 Fr. (Active) Staff: Gymnastics Instructor: Anastasia Salazar RN Relief Gymnastics Instructor: Akanksha Jeffries RN Relief Scrub: Cyn Roa Scrub Person: Zina Rodriguez Web Support Engineer: Clementine Arechiga; Thomas Tapia; Bakari Palm Findings: None Complications: None; patient tolerated the procedure well. Specimens Collected: Order Name Source Comment Collection Info Order Time POTASSIUM WITH MG REFLEX For patients on dialysis to draw potassium day of surgery 09/23/2023 7:03 AM PROTHROMBIN TIME If patient on coumadin within 4 days prior. 09/23/2023 7:03 AM Wound Class: Class I: Clean Blood Products: None Prophylactic Antibiotics: Procedure appropriate prophylactic antibiotic(s) given within 1 hour of surgical incision (two hours if receiving Vancomycin or flouroquinolone) Patient educated on importance of coughing/ deep breathing after surgery to reduce risk of pneumonia. Patient educated on importance of early mobility to reduce the risk of blood clots. Falls prevention information reviewed with patient. Post-operative pain control and ways to prevent constipation discussed with patient. documented in this encounter [facility] 09-25-2023 Note Formatting of this n ote might be different from the original. Patient Choice Patient Name: SOPHIE HICKS Date of : 1965 All Providers Sent [facility] Phone: [phone] Address: [address] [place] [address] [facility] 09-25-2023 Note Formatting of this n ote might be different from the original. Patient Choice Patient Name: SOPHIE HICKS Date of : 1965 All Providers Sent Referral Name: [facility] Phone: [phone] Address: [address] [place] [address] [facility] 09-25-2023 Note Formatting of this n ote is different from the original. Start PACC Note Home Health Referral Educated patient on Home Care and services available. Patient offered choice of available HHC and agreeable to SN services with [facility]. Care Types: None Isolation Precautions: No active isolations Social Determinates of Health: Tobacco Use: Low Risk (09/23/2023) Patient History Smoking Tobacco Use: Never Smokeless Tobacco Use: Never Passive Exposure: Not on file Social History Substance and Sexual Activity Alcohol Use Never Social History Substance and Sexual Activity Drug Use No Does the patient have any financial resource strain? No Does the patient have any food insecurities? No Does the patient have any housing instabilities? No If any of the above is noted as yes - consider a DIRECTOR CARD evaluation once the patient returns home. START PATIENT REGISTRATION INFORMATION Order Information Order Signing Physician: Beto Gutierrez MD Service Ordered RN ?: Yes Service Ordered PT ?: No Service Ordered OT ?: No Service Ordered ST ?: No Service Ordered DIRECTOR CARD?:No Service Ordered SPECIAL EDUCATION TEACHING ASSISTANT?: No Following Physician: WILIAM FERNANDEZ MD Following Physician Overseeing Physician: WILIAM FERNANDEZ MD (Required for Residents only) Agreeable to Follow? Yes Date/Time of Call 09/25/23 11:42 AM, Spoke with: Rafaela Care Coordination Same Day SOC?: No Primary Care Physician: WILIAM FERNANDEZ MD Primary Care Physician Primary Care Physician Address: [address] [place] [phone] Visit Instructions: Post surg f/u Service Discharge Location Type: Home with Home Health Care Service Facility Name: N/A Service Floor Facility: N/A Service Room No: N/A Demographics Patient Last Name: Kurt Patient First Name: Sophie Language/Communication Barrier: n/a Service Address: [address] [facility] Service City: [place] Service ST: [place] Service ZIP: [address] Service (home) Other phone numbers: Telephone Information: Emergency Contact: Extended Emergency Contact Information Primary Emergency Contact: Ellie Hicks Relation: Spouse Admission Information Admit Date: 09/23/2023 Patient status at discharge: Inpatient Admitting Diagnosis: Localized adiposity [E65] Abdominal pannus [E65] Caregiver Information Caregiver First Name: n/a Caregiver Last Name: n/a Caregiver Relationship to Patient n/a Caregiver Phone Number: n/a Caregiver Notes: N/A [employer] List HIGHTECH: HI TECH - DRAIN CARE TYPE: JOANNA Drain ORDERS: Empty JOANNA drain PRN and replace bulb back to suction END PATIENT REGISTRATION INFORMATION Pt Home Health goal to care for self and have less pain COVID Status 1. Do you have any upper respiratory symptoms (cough, SOB, Fever)? No 2. Have you been exposed to anyone with COVID-19 Virus? No Answer only if pending or positive for COVID-19? 1. Agreeable to wear PPE at each visit? No 2. Is the hospital supplying them with PPE upon Discharge? No Start PACC Summary General Report/ Additional Comments Post op care- Shower daily/as desired with soap/water and pat dry. May place ABD over surgical tapes to prevent abdominal binder friction. Empty JOANNA drain PRN and replace bulb back to suction. May dress tube with split gauze. Discharge Date: 09/25/23 Referral Source-PACC: (Hospital/Unit): [facility] / B1-147/B1-147 A End PACC Note [facility] 09-25-2023 Note Formatting of this n ote is different from the original. Start PACC Note Home Health Referral Educated patient on Home Care and services available. Patient offered choice of available HHC and agreeable to SN services with [facility] - Home Care. Care Types: None Isolation Precautions: No active isolations Social Determinates of Health: Tobacco Use: Low Risk (09/23/2023) Patient History Smoking Tobacco Use: Never Smokeless Tobacco Use: Never Passive Exposure: Not on file Social History Substance and Sexual Activity Alcohol Use Never Social History Substance and Sexual Activity Drug Use No Does the patient have any financial resource strain? No Does the patient have any food insecurities? No Does the patient have any housing instabilities? No If any of the above is noted as yes - consider a DIRECTOR CARD evaluation once the patient returns home. START PATIENT REGISTRATION INFORMATION Order Information Order Signing Physician: Beto Gutierrez MD Service Ordered RN ?: Yes Service Ordered PT ?: No Service Ordered OT ?: No Service Ordered ST ?: No Service Ordered DIRECTOR CARD?:No Service Ordered SPECIAL EDUCATION TEACHING ASSISTANT?: No Following Physician: WILIAM FERNANDEZ MD Following Physician Overseeing Physician: WILIAM FERNANDEZ MD (Required for Residents only) Agreeable to Follow? Yes Date/Time of Call 09/25/23 11:42 AM, Spoke with: Rafaela Care Coordination Same Day SOC?: No Primary Care Physician: WILIAM FERNANDEZ MD Primary Care Physician Primary Care Physician Address: [address] [place] [phone] Visit Instructions: Post surg f/u Service Discharge Location Type: Home with Home Health Care Service Facility Name: N/A Service Floor Facility: N/A Service Room No: N/A Demographics Patient Last Name: Kurt Patient First Name: Sophie Language/Communication Barrier: n/a Service Address: [address] [place] [address] Service City: [facility] ST: [place] Service ZIP: [address] Service (home) Other phone numbers: Telephone Information: Emergency Contact: Extended Emergency Contact Information Primary Emergency Contact: Ellie Hicks Relation: Spouse Admission Information Admit Date: 09/23/2023 Patient status at discharge: Inpatient Admitting Diagnosis: Localized adiposity [E65] Abdominal pannus [E65] Caregiver Information Caregiver First Name: n/a Caregiver Last Name: n/a Caregiver Relationship to Patient n/a Caregiver Phone Number: n/a Caregiver Notes: N/A HITECH Hi-[employer] List HIGHTECH: HI TECH - DRAIN CARE TYPE: JOANNA Drain ORDERS: Empty JOANNA drain PRN and replace bulb back to suction END PATIENT REGISTRATION INFORMATION Pt Home Health goal to care for self and have less pain COVID Status 1. Do you have any upper respiratory symptoms (cough, SOB, Fever)? No 2. Have you been exposed to anyone with COVID-19 Virus? No Answer only if pending or positive for COVID-19? 1. Agreeable to wear PPE at each visit? No 2. Is the hospital supplying them with PPE upon Discharge? No Start PACC Summary General Report/ Additional Comments Post op care- Shower daily/as desired with soap/water and pat dry. May place ABD over surgical tapes to prevent abdominal binder friction. Empty JOANNA drain PRN and replace bulb back to suction. May dress tube with split gauze. Discharge Date: 09/25/23 Referral Source-PACC: (Hospital/Unit): [facility] / B1-147/B1-147 A End PACC Note [facility] 09-25-2023 History of Presen t illness Narrative Nutrition rescreen completed. Patient assigned a level 1 for nutrition care. documented in this encounter [facility] 09-24-2023 Plan of care note The patient is Moderately Stable - Low risk of patient condition declining or worsening The patient's goals for the shift include pain management The clinical goals for the shift include pain management Problem: Pain - Adult Goal: Verbalizes/displays adequate comfort level or baseline comfort level Outcome: Progressing Problem: Safety - Adult Goal: Free from fall injury Outcome: Progressing Problem: Respiratory - Adult Goal: Achieves optimal ventilation and oxygenation Outcome: Progressing Problem: Skin/Tissue Integrity - Adult Goal: Skin integrity remains intact Outcome: Progressing Goal: Incisions, wounds, or drain sites healing without S/S of infection Outcome: Progressing Goal: Oral mucous membranes remain intact Outcome: Progressing Problem: Chronic Conditions and Co-morbidities Goal: Patient's chronic conditions and co-morbidity symptoms are monitored and maintained or improved Outcome: Progressing [facility] 09-24-2023 Nurse Note Encouraged patient to ambulate. Educated on benefits. Patient with pain uncontrolled. T [facility] 09-24-2023 Plan of care note Problem: Pain - Adult Goal: Verbalizes/displays adequate comfort level or baseline comfort level Outcome: Progressing Problem: Safety - Adult Goal: Free from fall injury Outcome: Progressing Problem: Respiratory - Adult Goal: Achieves optimal ventilation and oxygenation Outcome: Progressing Problem: Skin/Tissue Integrity - Adult Goal: Skin integrity remains intact Outcome: Progressing Goal: Incisions, wounds, or drain sites healing without S/S of infection Outcome: Progressing Goal: Oral mucous membranes remain intact Outcome: Progressing Problem: Chronic Conditions and Co-morbidities Goal: Patient's chronic conditions and co-morbidity symptoms are monitored and maintained or improved Outcome: Progressing T [facility] 09-24-2023 Note Formatting of this n ote might be different from the original. Video Rental Clerk following case for Discharge Needs. - callled Dr. Paiz's office to see if he would follow. [facility] 09-24-2023 Note Formatting of this n ote might be different from the original. Video Rental Clerk following case for Discharge Needs. - callled Dr. Paiz's office to see if he would follow. [facility] 09-24-2023 Note Formatting of this n ote might be different from the original. Care Managment Initial Assessment Date: 09/24/2023 Patient Name: Sophie Hicks : 1965 Patient Information Source of Information: Patient Cognition/Language: WFL - Within Functional Limits Permission given to speak with patient territory account representative/caregiver as indicated: Yes Confirmation of Payer with patient/family: Yes Payer Name: Medicare A/B [place]: No Confirmation of Primary Care Physician: Confirmed PCP Name: Dr. Wiliam Fernandez Seen in last 2 years?: Yes Primary Caregiver: Self If assistance needed, confirmed caregiver ready, willing and able to care for patient at discharge: Yes Confirmed with: Spouse Ellie Living Arrangements Current Residence: House Number of Floors 2 Number of Entry Steps: 2 (basement level laundry. chair lift was present in home w purchased by patient. Able to use if needed) Bed/Bath Levels: Both first floor Facility: Facility Name: Plan to Return: Lives with: Spouse/significant other Support Systems: Spouse/significant other Activities of Daily Living Ambulation: Independent Bathing/Dressing: Independent Elimination/Continence/Toileting: Independent Feeding: Independent Who Assists with Activities of Daily Living: Self Instrumental Activities of Daily Living Prescription Coverage: Yes [facility] Medication Management: Independent Transportation/Shopping: Independent Transportation Mode: Car Needs Assistance with Transportation at Discharge: No Meal Preparation: Independent Laundry/Cleaning: Assistance Provider Laundry/Cleaning Assistance Provider Name: spouse can complete Finances/Bill Paying: Communication: Independent Types of Care Services/Equipment Utilized Care Services: (Not active with any services at present.) Dialysis Type: NA Durable Medical Equipment: Walker (N/A) DME Provider: None Patient's Goal/Discharge Plan Patient expects to be discharged to: Pt requesting short term home care nursing services to assist w dressing changes. SCHERER informed to follow Discharge Planning Actions: Continue to follow Patient's Choice Rights and [employer] and Collaborative Relationships Disclosed as Indicated for Post-Acute Care: Yes Interdisciplinary Team Engagement: Home Health Care Social Work Referral for: (Patient denies needs at present time.) Additional Information: Pt admitted for elective abdominal panniculectomy with Dr. Gutierrez 09/23/23. Post op pt with bilateral JOANNA drains maintained Diet as tolerated. Pain uncontrolled. Medications titrated w goal to de escalate IV narcotic need and transition to po for dc. Ia Completed with pt at bedside. Tcc introduced self and role. Pt verified insurance provider, PCP and pharmacy as noted in Epic. Pt reports being indep uses no DME currently. Indep adls and iadls. Has a walker. Spouse Ellie is emergency contact and ride home at me. Pt requesting home care nurse for wound/care/incisional care at me. Tcc messaged [facility] liaison to follow up. MOP home w [facility]. Task placed to [facility] liaison. Hellen Gandara RN [facility] 09-24-2023 Note Formatting of this n ote might be different from the original. Care Managment Initial Assessment Date: 09/24/2023 Patient Name: Sophie Hicks : 1965 Patient Information Source of Information: Patient Cognition/Language: WFL - Within Functional Limits Permission given to speak with patient territory account representative/caregiver as indicated: Yes Confirmation of Payer with patient/family: Yes Payer Name: Medicare A/B [place]: No Confirmation of Primary Care Physician: Confirmed PCP Name: Dr. Wiliam Fernandez Seen in last 2 years?: Yes Primary Caregiver: Self If assistance needed, confirmed caregiver ready, willing and able to care for patient at discharge: Yes Confirmed with: Spouse Ellie Living Arrangements Current Residence: House Number of Floors 2 Number of Entry Steps: 2 (basement level laundry. chair lift was present in home w purchased by patient. Able to use if needed) Bed/Bath Levels: Both first floor Facility: Facility Name: Plan to Return: Lives with: Spouse/significant other Support Systems: Spouse/significant other Activities of Daily Living Ambulation: Independent Bathing/Dressing: Independent Elimination/Continence/Toileting: Independent Feeding: Independent Who Assists with Activities of Daily Living: Self Instrumental Activities of Daily Living Prescription Coverage: Yes [facility]acy Used[facility] Medication Management: Independent Transportation/Shopping: Independent Transportation Mode: Car Needs Assistance with Transportation at Discharge: No Meal Preparation: Independent Laundry/Cleaning: Assistance Provider Laundry/Cleaning Assistance Provider Name: spouse can complete Finances/Bill Paying: Communication: Independent Types of Care Services/Equipment Utilized Care Services: (Not active with any services at present.) Dialysis Type: NA Durable Medical Equipment: Walker (N/A) DME Provider: None Patient's Goal/Discharge Plan Patient expects to be discharged to: Pt requesting short term home care nursing services to assist w dressing changes. SCHERER informed to follow Discharge Planning Actions: Continue to follow Patient's Choice Rights and [employer] and Collaborative Relationships Disclosed as Indicated for Post-Acute Care: Yes Interdisciplinary Team Engagement: Home Health Care Social Work Referral for: (Patient denies needs at present time.) Additional Information: Pt admitted for elective abdominal panniculectomy with Dr. Gutierrez 09/23/23. Post op pt with bilateral JOANNA drains maintained Diet as tolerated. Pain uncontrolled. Medications titrated w goal to de escalate IV narcotic need and transition to po for dc. Ia Completed with pt at bedside. Tcc introduced self and role. Pt verified insurance provider, PCP and pharmacy as noted in Epic. Pt reports being indep uses no DME currently. Indep adls and iadls. Has a walker. Spouse Ellie is emergency contact and ride home at me. Pt requesting home care nurse for wound/care/incisional care at me. Tcc messaged [facility] liaison to follow up. MOP home w [facility]. Task placed to [facility] liaison. Hellen Gandara RN [facility] 09-23-2023 Hospital Discharg e instructions Beto Gutierrez MD - 09/23/2023 12:44 PM EDT Discharge Instructions Call your surgeon in 1 to 2 days to schedule a follow-up appointment in 1 week. OK to shower in 2 days. OK for ambulation as tolerated. No bending over or lifting over 10 pounds. Wound Care: Keep wound clean and dry. Keep paper tape in place. Oozing and swelling are expected. You may feel more comfortable sitting or sleeping in a recliner due to abdominal tightness. Wear binder at all times. You may wish to purchase a compression garment or binder on [employer]. Recommendations include binders such as a binder. These are usually more durable and customizable than the surgical binder. For your drain, please record daily output amounts and bring the recordings with you to your office follow up. No driving while taking narcotic pain medications. You may take an over the counter stool softener while on narcotics for constipation as needed (colace, miralax, etc). Call your Physician or return to the Emergency Room if you experience: -New or increased pain. -New or increased bleeding. -Nausea & vomitting. -Fever & chills. -Shortness of breath. -Chest pain. -Abdominal distention. Delia Beasley LPN - 09/25/2023 11:58 AM EDT Continuity of Care Form Patient Name: Sophie Hicks : 1965 Admit date: 09/23/2023 Discharge date: Code Status Order: Full Code Advance Directives: N Admitting Physician: Beto Gutierrez MD PCP: WILIAM FERNANDEZ MD Discharging Nurse: Discharging Hospital Unit/Room#: B1-147/B1-147 A Discharging Unit Phone Number: Emergency Contact: Extended Emergency Contact Information Primary Emergency Contact: Ellie Hicks Relation: Spouse Past Surgical History: Past Surgical History: Procedure Laterality Date APPENDECTOMY BARIATRIC SURGERY 12/03/2021 Dr. Trevino CARDIAC CATHETERIZATION 12/17/2013 NORMAL CORONARY ARTERIES AND LVEF. COLONOSCOPY COLONOSCOPY 2020 CYSTOSCOPY 10/26/2020 CYSTOSCOPY 11/19/2020 CYSTOSCOPY 09/16/2023 EGD (HISTORICAL) 03/02/2023 NECK SURGERY Posterior cervical fusion PANNICULECTOMY (HISTORICAL) 09/23/2023 ROTATOR CUFF REPAIR Bilateral UPPER GASTROINTESTINAL ENDOSCOPY 01/24/2021 Dr. Cabello Immunization History: Immunization History Administered Date(s) Administered Influenza, Unspecified 01/12/2014, 01/29/2015 Influenza, injectable, quadrivalent, preservative free 05/01/2020 Moderna SARS-CoV-2 Vaccination 09/01/2020, 09/25/2020, 12/04/2020 Tdap 07/06/2014 Active Problems: Medical Problems Problem List * (Principal) Abdominal pannus Thrombocytopenia, unspecified (HCC) Deficiency of multiple nutrient elements Abdominal pain Abdominal pain, epigastric Hematuria Awareness under anesthesia History of colonic polyps Overview Signed 01/26/2022 1:36 AM by Interface, Incoming Problems- [facility] Conversion Repeat scope due 2019 Nephrotic syndrome COVID-19 Diarrhea Benign essential HTN CHF (congestive heart failure) (HCC) Hyperlipidemia DJD (degenerative joint disease) of cervical spine Overview Signed 01/26/2022 1:36 AM by Interface, Incoming Problems- [facility] Conversion CERVICAL SPINE DJD Multiple joint pain Overview Signed 01/26/2022 1:36 AM by Interface, Incoming Problems- [facility] Conversion Seeing pain management - on oxycontin Neurological symptoms TIA (transient ischemic attack) Peripheral edema CAD (coronary artery disease) Overview Signed 01/26/2022 1:36 AM by Interface, Incoming Problems- [facility] Conversion mild - dx on cath - neg stress DEMI on CPAP Diffuse membranous glomerulonephritis Hx: nephrotic syndrome Type 2 diabetes mellitus (HCC) Morbid obesity (HCC) History of snoring Shortness of breath Occlusion and stenosis of bilateral carotid arteries Sleep apnea Urinary hesitancy Degenerative disc disease, thoracic Cervical spondylosis Overview Signed 01/26/2022 1:36 AM by Interface, Incoming Problems- [facility] Conversion Overview: CERVICAL SPINE DJD Back pain Degenerative disc disease, lumbar Nephrotic syndrome with membranous glomerulonephritis Disorder of bladder Hypoalbuminemia Peripheral polyneuropathy Chronic back pain GERD (gastroesophageal reflux disease) DEMI (obstructive sleep apnea) Mucopurulent chronic bronchitis (HCC) Cervicalgia Isolation/Infection: No active isolations No active infections Nurse Assessment: Last Vital Signs: BP 134/74 (BP Location: Left arm, Patient Position: Lying) Pulse 62 Temp 36.1 C (97 F) (Temporal) Resp 18 Ht 1.854 m (6' 1) Wt 118 kg (260 lb) SpO2 98% BMI 34.30 kg/m Last documented pain score (0-10 scale): Last Weight: Wt Readings from Last 1 Encounters: 09/23/23 118 kg (260 lb) Mental Status: {SENA Patient Mental Status:38344} IV Access: {[facility] [place] [facility] IV Access:05343} Nursing Mobility/ADLs: Walking {ESTELA ADL:79960::Independent} Transfer {ESTELA ADL:47529::Independent} Bathing {ESTELA ADL:32919::Independent} Dressing {ESTELA ADL:78613::Independent} Toileting {ESTELA ADL:11129::Independent} Feeding {ESTELA ADL:93792::Independent} Castings Drafter {ESTELA ADL:45767::Independent} Med Delivery {yes/no:26064} Wound Care Documentation and Therapy: Wound/Incision 09/23/23 Incision Abdomen Lower (Active) Site Assessment Clean;Dry;Intact 09/24/23 1228 Odor None 09/24/23 1228 Drainage Amount None 09/24/23 1228 Treatments Abdominal binder 09/24/23 1228 Primary Dressing Special tape 09/24/23 1228 Dressing Status Clean, dry & intact 09/24/23 1228 Number of days: 2 Wound/Incision 09/23/23 Other (comment) Ankle Anterior;Right (Active) Site Assessment Dry 09/24/23 1228 Odor None 09/23/23 2225 Drainage Amount None 09/23/23 2225 Primary Dressing Open to air 09/24/23 1228 Number of days: 1 Elimination: Continence: Bowel: {yes/no:34064} Bladder: {yes/no:45192} Urinary Catheter: {SENA Urinary Catheter:17694} Colostomy/Ileostomy/Ileal Conduit: {YES / NO:} Date of Last BM: Intake/Output Summary (Last 24 hours) at 09/25/2023 1158 Last data filed at 09/25/2023 0739 Gross per 24 hour Intake 75 ml Output 625 ml Net -550 ml I/O last 3 completed shifts: In: 75 (0.6 mL/kg) [I.V.:75 (0.6 mL/kg)] Out: 1785 (15.1 mL/kg) [Urine:1625 (0.4 mL/kg/hr); Drains:160] Weight: 117.9 kg Safety Concerns: {SENA Safety Concerns:10235} Impairments/Disabilities: {SENA Impairments/Disabilities:35256} Nutrition Therapy: Current Nutrition Therapy: {SENA Diet List:84915} Routes of Feeding: {routes of feedin} Liquids: {liquid consistency:42436} Daily Fluid Restriction: {daily fluid restriction:63844} Last Modified Barium Swallow with Video (Video Swallowing Test): {done not done:90198} Treatments at the Time of Hospital Discharge: Respiratory Treatments: Oxygen Therapy: {Therapy; copd oxygen:64409} Ventilator: {SENA Ventilator:45853} Rehab Therapies: {GEN THERAPY DISCIPLINE SCAL:1652769} Weight Bearing Status/Restrictions: {POD WEIGHT BEARIN} Other Medical Equipment (for information only, NOT a DME order): {Assistive Devices DME:77886} Other Treatments: Patient's personal belongings (please select all that are sent with patient): {SENA Patient Belongings:97725} RN SIGNATURE: {E-signature:22170} CASE MANAGEMENT/SOCIAL WORK SECTION Inpatient Status Date: Readmission Risk Assessment Score: @READMISSIONRISKDETAILS@ Discharging to Facility/ Agency Name: [facility] Address: [address] [place] [address] Dialysis Facility (if applicable) Name: Address: Dialysis Schedule: Phone: Fax: Operations Supervisor/Director Of [employer] Facility signature: {E-signature:52685} PHYSICIAN SECTION Prognosis: {Rehab Prognosis:07518} Condition at Discharge: {Patient Condition:45283} Rehab Potential (if transferring to Rehab): {Rehab Prognosis:86812} Recommended Labs or Other Treatments After Discharge: Physician Certification: I certify the above information and transfer of Sophie Hicks is necessary for the continuing treatment of the diagnosis listed and that he requires {SENA Level of Care:50915} for {greater less than:11473} 30 days. Update Admission H&P: {SENA Changes in H&P:01700} PHYSICIAN SIGNATURE: {E-signature:04604} documented in this encounter [facility] 09-23-2023 Note Formatting of this n ote might be different from the original. Operative Note Patient: Sophie Hicks Date of : 1965 [id number] Date of Procedure: 09/23/23 Pre-Op Diagnosis: Symptomatic Abdominal Pannus Post-Op Diagnosis: Same Surgeon: Beto Gutierrez MD Operation: Panniculectomy Anesthesia: General Estimated Blood Loss (mL): 100 Complications: None Detailed Description of Procedure: Operative indication: Patient is a 57 year old male who underwent bariatric surgery. Patient developed symptomatic abdominal pannus with lower back pain, stretching, fungal infections, skin breakdown. This persisted despite conservative measures, compression garments, antifungal treatment, skin care, meticulous hygiene. Patient now presents for definitive panniculectomy. Operative note: Patient was marked and consented in the preoperative area, taken to the operating room, prepped and draped in the usual manner, 2 g of Ancef 40 mg of Lovenox were administered, a bilateral tap Block was performed, and a timeout was performed. I began by confirming her lower abdominal incisions. I then incised through the skin subcutaneous tissue down to the abdominal wall. At that time I elected to keep the umbilicus because it appeared viable. We then cut around the umbilicus in a cone like manner down to the abdominal wall. I then lifted the abdominal pannus off of the abdominal wall and confirmed our superior weaver. I then resected the abdominal pannus and weight this. This weighed approximately 3514g. After this, I irrigated with 2 L of saline, performed quilting sutures in the midline, placed 2, 19 Cymro channel drains, and began closure. I closed the Junior's with 0-0 stratafix laterally and interrupted 0 Vicryl sutures near the midline. I then closed the dermis with interrupted 3-0 Monocryl and Insorb ana. I then closed the dermis with running 3-0 Monocryl. 2 19 Cymro channel drains were secured with 3-0 nylon. All counts were correct. Patient was extubated taken to PACU in expected to make a good recovery. Beto Gutierrez MD [facility] 09-23-2023 Note Formatting of this n ote is different from the original. Date: 09/23/2023 Location: [facility] [place] Name: Sophie Hicks, : 1965, Diagnosis Pre-op Diagnosis * Localized adiposity [E65] Post-op Diagnosis * Localized adiposity [E65] Procedures PANNICULECTOMY 56479 - IN EXCISION SKIN ABD INFRAUMBILICAL PANNICULECTOMY Surgeons * Beto Gutierrez - Primary Procedure Summary Anesthesia: General ASA: III Estimated Blood Loss: 50 mL Drains: Closed/Suction Drain Lateral RLQ Bulb 19 Fr. (Active) Closed/Suction Drain Lateral LLQ Bulb 19 Fr. (Active) Staff: Gymnastics Instructor: Anastasia Salazar RN Relief Gymnastics Instructor: Akanksha Jeffries RN Relief Scrub: Cyn Roa Scrub Person: Zina Rodriguez Web Support Engineer: Clementine Arechiga; Thomas Tapia; Bakari Palm Findings: None Complications: None; patient tolerated the procedure well. Specimens Collected: Order Name Source Comment Collection Info Order Time POTASSIUM WITH MG REFLEX For patients on dialysis to draw potassium day of surgery 09/23/2023 7:03 AM PROTHROMBIN TIME If patient on coumadin within 4 days prior. 09/23/2023 7:03 AM Wound Class: Class I: Clean Blood Products: None Prophylactic Antibiotics: Procedure appropriate prophylactic antibiotic(s) given within 1 hour of surgical incision (two hours if receiving Vancomycin or flouroquinolone) [facility] 09-23-2023 Note Formatting of this n ote might be different from the original. Operative Note Patient: Sophie Hicks Date of : 1965 [id number] Date of Procedure: 09/23/23 Pre-Op Diagnosis: Symptomatic Abdominal Pannus Post-Op Diagnosis: Same Surgeon: Beto Gutierrez MD Operation: Panniculectomy Anesthesia: General Estimated Blood Loss (mL): 100 Complications: None Detailed Description of Procedure: Operative indication: Patient is a 57 year old male who underwent bariatric surgery. Patient developed symptomatic abdominal pannus with lower back pain, stretching, fungal infections, skin breakdown. This persisted despite conservative measures, compression garments, antifungal treatment, skin care, meticulous hygiene. Patient now presents for definitive panniculectomy. Operative note: Patient was marked and consented in the preoperative area, taken to the operating room, prepped and draped in the usual manner, 2 g of Ancef 40 mg of Lovenox were administered, a bilateral tap Block was performed, and a timeout was performed. I began by confirming her lower abdominal incisions. I then incised through the skin subcutaneous tissue down to the abdominal wall. At that time I elected to keep the umbilicus because it appeared viable. We then cut around the umbilicus in a cone like manner down to the abdominal wall. I then lifted the abdominal pannus off of the abdominal wall and confirmed our superior weaver. I then resected the abdominal pannus and weight this. This weighed approximately 3514g. After this, I irrigated with 2 L of saline, performed quilting sutures in the midline, placed 2, 19 Cymro channel drains, and began closure. I closed the Junior's with 0-0 stratafix laterally and interrupted 0 Vicryl sutures near the midline. I then closed the dermis with interrupted 3-0 Monocryl and Insorb ana. I then closed the dermis with running 3-0 Monocryl. 2 19 Cymro channel drains were secured with 3-0 nylon. All counts were correct. Patient was extubated taken to PACU in expected to make a good recovery. Beto Gutierrez MD [facility] 09-23-2023 Note Formatting of this n ote is different from the original. Date: 09/23/2023 Location: [facility] [place] Name: Sophie Hicks, : 1965, Diagnosis Pre-op Diagnosis * Localized adiposity [E65] Post-op Diagnosis * Localized adiposity [E65] Procedures PANNICULECTOMY 41790 - IN EXCISION SKIN ABD INFRAUMBILICAL PANNICULECTOMY Surgeons * Beto Gutierrez - Primary Procedure Summary Anesthesia: General ASA: III Estimated Blood Loss: 50 mL Drains: Closed/Suction Drain Lateral RLQ Bulb 19 Fr. (Active) Closed/Suction Drain Lateral LLQ Bulb 19 Fr. (Active) Staff: Gymnastics Instructor: Anastasia Salazar RN Relief Gymnastics Instructor: Akanksha Jeffries RN Relief Scrub: Cyn Roa Scrub Person: Zina Rodriguez Web Support Engineer: Clementine Arechiga; Thomas Tapia; Bakari Palm Findings: None Complications: None; patient tolerated the procedure well. Specimens Collected: Order Name Source Comment Collection Info Order Time POTASSIUM WITH MG REFLEX For patients on dialysis to draw potassium day of surgery 09/23/2023 7:03 AM PROTHROMBIN TIME If patient on coumadin within 4 days prior. 09/23/2023 7:03 AM Wound Class: Class I: Clean Blood Products: None Prophylactic Antibiotics: Procedure appropriate prophylactic antibiotic(s) given within 1 hour of surgical incision (two hours if receiving Vancomycin or flouroquinolone) [facility] 09-23-2023 Attending History and physical note H&P reviewed. The patient was examined and there are no changes to the H&P. Discussed Possible Liposuction. Source Note - Sherlyn Faria PA-C - 09/15/2023 1:00 PM EDT Comprehensive PreSurgical History and Physical ? Name: Sophie Hicks : 1965 (Age-57 y.o.) Date of Service: Pt seen/examined on 09/15/2023 Procedure Information Date/Time: 09/16/23 1030 Procedures: CYSTOSCOPY, RETROGRADE PYELOGRAM (Urethra) - 60 MIN POSSIBLE BILATERAL URETEROSCOPY (Bilateral: Urethra) Location: [address] Operating Room Surgeons: Cristo Coyne MD Chief Complaint: Abdominal pannus. Gross hematuria ASSESSMENT/PLAN: Patient is considered intermediate risk for this low/intermediate risk procedure/surgery noted above () with no reducible risk factors. Based on the above evaluation, the benefits of the planned procedure likely exceed the risks. The patient is medically optimized to proceed with the planned procedure without any further cardiopulmonary testing. 1) Abdominal pannus Managed per surgery 2) Gross hematuria Managed per urology - cysto scheduled tomorrow 3) HTN Typically controlled Compliant with meds. Taking bumex Follows with PCP Labs and EKG done BP Readings from Last 3 Encounters: 09/15/23 122/79 09/08/23 102/60 08/27/23 133/68 4) DEMI Resolved after bariatric surgery, no cpap now I would consider higher level of care (continuous pulse ox) with this patient due to DEMI and increased risks 5) COPD/Asthma Per patient, feels at baseline Using daily inhaler, rescue inhaler several times a week Continue inhalers day of surgery Labs, EKG done 6) CKD Labs done Follows with PCP/nephrology Close monitoring and management of fluid volume and electrolytes advised. Avoid nephrotoxic agents 7) CAD, mild S/p cardiac cath, neg stress in the past Denies stents Taking asa, statin Labs, EKG done 8) CVA Occurred in ~2020 or 2021 Denies residual Taking asa, statin Follows with PCP 9) Atrial Fibrillation, paroxysmal Taking asa Follows with pcp EKG and labs done 10) Anxiety / Depression Taking Wellbutrin, buspar, xanax prn Follows with PCP 11) GERD Stable. Currently taking PPI Avoidance of triggers encouraged 12) Hypothyroidism Currently taking synthroid Follows with PCP Visit Type: Pre-Admission Testing Visit Labs Ordered: NO - COMPLETE PRIOR TO PAT VISIT Sleep Referral Ordered: no cpap. Demi resolved with weight loss Total time spent (which include face to face and non face to face encounters) : 60 minutes Toxic drug monitoring/narrow therapeutic index drug monitoring : # Drug name : bumex # Route administered : po # Method of monitoring : bmp PAT Protocol referenced includes: 1. Anesthesia Lab Protocol Orders 2. Perioperative Cardiovascular Risk Assessment 3. Anesthesia Assessment 4. Pain Assessment and Acute Pain Service Consult (if appropriate) 5. Medical Clearance/Consult from Internal Medicine (IMS) 6. Shower/Wash Order (for designated surgeries) 7. DEMI Screen and Sleep Clinic Referral (if appropriate) History Of Present Illness: 57 y.o. male who presents with chief complaint mentioned above. Per surgeon's note Pt c/o symptomatic abdominal pannus. Patient underwent bariatric surgery over 19 months ago. At that time, patient's BMI was near 50. After bariatric surgery, patient has had dramatic success with weight loss. Patient has maintained excellent protein intake, regular diet, and consistent exercise. Patient is lost the vast majority of his excess body weight and BMI has been between 35 and 37. Patient states his weight has been stable for at least the last 10 months. Patient states that after approximately 6 months of weight loss he began having symptomatic skin issues. Patient has symptomatic abdominal pannus that overhangs his pubic tubercle, overhangs and partially buries his genitals, with symptomatic skin issues including rashes, irritation, and pulling on his back. Patient states this interferes with his daily activity including ambulation and daily activity as well as urination and other bodily functions. Patient states despite regular and consistent diet and exercise the symptoms have worsened with weight loss and extra skin. Patient has attempted many conservative measures including meticulous hygiene, skin care, topical antifungals, compression garments/clothing. This has not resulted in improvement. pt also c/o return of gross hematuria status post cystoscopy with Dr. Coyne 08/10/2023 & numerous catheterizations during hospitalization 08/18/2023. In ED again 08/20 with hematuria. His urine cultures have been negative for growth & prior CT negative, along with cystoscopy negative for masses. Pt has seen the surgeon and elected for above procedure. DM was prior to bariatric surgery, stable now no meds Denies Hx of CHF, FL, DVT/PE Hx problems with anesthesia? - awareness under anesthesia during dental implant surgery Motion sickness sometimes upper and lower permanent implants Past Medical History: Past Medical History: No date: Abdominal pain No date: Atrial fibrillation (HCC) Comment: transient; resolved No date: Awareness under anesthesia No date: Back pain 01/29/2015: Benign essential HTN No date: Blood circulation, collateral No date: CAD (coronary artery disease) Comment: mild - dx on cath - neg stress No date: Cerebral artery occlusion with cerebral infarction (HCC) No date: Chronic kidney disease No date: COPD (chronic obstructive pulmonary disease) ([facility]) No date: COVID-19 Comment: 05/0309/25/2020: COVID-19 vaccine series completed Comment: Moderna 12/04/2020: COVID-19 vaccine series completed Comment: BOOSTER 12/25/2004: CS (cervical spondylosis) Comment: CERVICAL SPINE DJD No date: Difficulty sleeping No date: Dizziness No date: GERD (gastroesophageal reflux disease) 06/21/2013: History of colonic polyps Comment: repeat 2019 No date: Hyperlipidemia No date: Hypothyroidism 08/15/2014: Insomnia No date: Joint pain, hip No date: Joint pain, knee No date: Memory difficulties No date: Muscle weakness 09/30/2020: Peripheral polyneuropathy No date: Shortness of breath at rest No date: Sleep apnea Comment: resolved with weight loss No date: Snoring No date: SOBOE (shortness of breath on exertion) 03/19/2021: Type 2 diabetes mellitus (HCC) Comment: resolved after weight loss Past Surgical History: Past Surgical History: No date: APPENDECTOMY 12/03/2021: BARIATRIC SURGERY Comment: Dr. Trevino 12/17/2013: CARDIAC CATHETERIZATION Comment: NORMAL CORONARY ARTERIES AND LVEF. No date: COLONOSCOPY 2020: COLONOSCOPY 10/26/2020: CYSTOSCOPY 11/19/2020: CYSTOSCOPY 03/02/2023: EGD (HISTORICAL) No date: NECK SURGERY Comment: Posterior cervical fusion No date: ROTATOR CUFF REPAIR; Bilateral 01/24/2021: UPPER GASTROINTESTINAL ENDOSCOPY Comment: Dr. Cabello Medications Prior to Admission: Current Outpatient Medications: Advair Diskus 250-50 MCG/ACT aerosol powder , INHALE 1 PUFF INTO THE LUNGS TWICE DAILY, Disp: 1 each, Rfl: 10 ALPRAZolam (Xanax) 1 MG tablet, Take 1 mg by mouth every 24 hours as needed., Disp: , Rfl: aspirin 81 MG EC tablet, 81 mg daily., Disp: , Rfl: atorvastatin (Lipitor) 80 MG tablet, Take 80 mg by mouth daily., Disp: , Rfl: baclofen (Lioresal) 10 MG tablet, Take 10 mg by mouth 2 times daily., Disp: , Rfl: bumetanide (Bumex) 1 MG tablet, Take 1 mg by mouth in the morning and 1 mg before bedtime., Disp: , Rfl: buPROPion XL (Wellbutrin XL) 150 MG 24 hr tablet, Take 150 mg by mouth daily., Disp: , Rfl: busPIRone (Buspar) 10 MG tablet, Take 10 mg by mouth 2 times daily., Disp: , Rfl: calcium citrate 250 MG tablet, Take 2 tablets (500 mg) by mouth in the morning and 2 tablets (500 mg) at noon and 2 tablets (500 mg) before bedtime. Take 2 tablets by mouth three times daily.., Disp: 180 tablet, Rfl: 3 cholestyramine (Questran) 4 g packet, Every 24 hours., Disp: , Rfl: Continuous Blood Gluc Sensor (FreeStyle Alexandra 2 Sensor) [facility] [place]ED; CHANGE SENSOR EVERY 14 DAYS, Disp: , Rfl: dicyclomine (Bentyl) 10 MG capsule, Take 10 mg by mouth in the morning and 10 mg at noon and 10 mg in the evening and 10 mg before bedtime., Disp: , Rfl: finasteride (Proscar) 5 MG tablet, Take 1 tablet (5 mg) by mouth daily. Do not crush, chew, or split., Disp: 90 tablet, Rfl: 3 fluticasone (Flonase) 50 MCG/ACT nasal spray, Every 24 hours., Disp: , Rfl: gabapentin (Neurontin) 300 MG capsule, Take 600 mg by mouth 3 times daily., Disp: , Rfl: levothyroxine (Synthroid, Levoxyl) 75 MCG tablet, , Disp: , Rfl: lidocaine (Uro-Jet) 2 % gel, Insert into the urethra as needed for mild pain (1-3)., Disp: 5 mL, Rfl: 1 Multiple Vitamins-Minerals (MULTIVITAMIN ADULTS 50+ PO), Take by mouth., Disp: , Rfl: oxyCODONE-acetaminophen (Percocet) 5-325 MG tablet, Take 1 tablet by mouth 3 times daily., Disp: , Rfl: pantoprazole (ProtoNix) 40 MG EC tablet, take 1 tablet by mouth once daily, Disp: 120 tablet, Rfl: 0 sertraline (Zoloft) 50 MG tablet, Take 50 mg by mouth daily., Disp: , Rfl: tadalafil (Cialis) 5 MG tablet, Take 1 tablet (5 mg) by mouth daily., Disp: 30 tablet, Rfl: 11 tamsulosin (Flomax) 0.4 MG 24 hr capsule, Take 1 capsule (0.4 mg) by mouth daily., Disp: 90 capsule, Rfl: 3 tiZANidine (Zanaflex) 2 MG tablet, Take 2 mg by mouth 2 times daily as needed., Disp: , Rfl: traMADol ER (Ultram-ER) 300 MG 24 hr tablet, Take 300 mg by mouth 3 times daily., Disp: , Rfl: Ventolin HFA 108 (90 Base) MCG/ACT inhaler, Inhale 2 puffs every 6 hours as needed., Disp: , Rfl: zinc gluconate 50 MG tablet, Take 1 tablet by mouth daily., Disp: , Rfl: CHRONIC NARCOTIC USE: percocet from pcp Allergies: Iodinated contrast media and Nsaids If patient has opioid allergy, is it okay to take Acetaminophen: N/A Social History: TOBACCO: reports that he has never smoked. He has never used smokeless tobacco. ETOH: reports no history of alcohol use. Social History Substance and Sexual Activity Drug Use No Family History: Family History Problem Relation Name Age of Onset Osteoarthritis Mother Lung cancer Mother smoker Coronary artery disease Other REVIEW OF SYSTEMS: Review of Systems Constitutional: Negative for chills and fever. Respiratory: Negative for shortness of breath. Cardiovascular: Negative for chest pain. Pertinent positives as noted in the HPI. Physical Exam: Physical Exam Constitutional: General: He is awake. He is not in acute distress. Appearance: Normal appearance. HENT: Head: Normocephalic and atraumatic. Eyes: Extraocular Movements: Extraocular movements intact. Conjunctiva/sclera: Conjunctivae normal. Cardiovascular: Rate and Rhythm: Normal rate and regular rhythm. Heart sounds: Normal heart sounds. Pulmonary: Effort: Pulmonary effort is normal. Breath sounds: Normal breath sounds. Abdominal: Palpations: Abdomen is soft. Musculoskeletal: General: Normal range of motion. Cervical back: Normal range of motion. Skin: General: Skin is warm and dry. Neurological: General: No focal deficit present. Mental Status: He is alert and oriented to person, place, and time. Psychiatric: Mood and Affect: Mood normal. Behavior: Behavior normal. Behavior is cooperative. Vitals: Vitals Value Taken Time BP 122/79 09/15/23 1258 Temp 36.2 C (97.1 F) 09/15/23 1258 Pulse 77 09/15/23 1258 Resp 16 09/15/23 1258 SpO2 97 % 09/15/23 1258 BP 122/79 Pulse 77 Temp 36.2 C (97.1 F) (Temporal) Resp 16 Ht 1.854 m (6' 1) Wt 122 kg (268 lb) SpO2 97% BMI 35.36 kg/m Labs: Lab Results Component Value Date WBC 9.2 08/21/2023 HGB 14.0 08/21/2023 HCT 41.6 08/21/2023 MCV 88.3 08/21/2023 PLT 163 08/21/2023 Lab Results Component Value Date NA 138 08/21/2023 K 4.1 08/21/2023 CL 103 08/21/2023 CO2 24 08/21/2023 BUN 23 (H) 08/21/2023 CREATININE 1.83 (H) 08/21/2023 GLUCOSE 119 (H) 08/21/2023 CALCIUM 9.0 08/21/2023 PROT 7.0 08/21/2023 ALKPHOS 80 08/21/2023 AST 26 08/21/2023 ALT 17 08/21/2023 EGFR 42.0 (L) 08/21/2023 Lab Results Component Value Date HGBA1C 5.5 11/20/2021 HGBA1C 5.5 07/16/2021 HGBA1C 6.5 (A) 11/16/2020 Roderick's Simple Cardiac Risk Index: RODERICK'S SIMPLE CARDIAC RISK SCORE: 2 Interpretation: 0 Points Class I 0.5% 1 Point Class II 1.3% 2 Points Class III 3.6% 3+ Points Class IV 9.1% METS >4 METS (Able to climb a flight of stairs with no chest pain or shortness of breath): Yes goes slow Walk indoors, such as around the house (1.75 METs), Do light work around the house, such as dusting or washing dishes (2.70 METs), Take care of self, that is eating, dressing, bathing, using the toilet (2.75 METs), Do moderate work around the house such as vacuuming, sweeping floors, or carrying in groceries (3.50 METs), Do yardwork, such as raking leaves, weeding,or pushing a power mower (4.50 METs), Climb a flight of stairs or walk up a hill (5.50 METs) PAT Pain Score: 0 Postop Pain Management Plan (Pain consult ordered?): Pain consult not indicated at this time ? EKG: Done recently Encounter Date: 08/21/23 ECG 12 lead Result Value Heart Rate 95 QRSD Interval 87 QT Interval 351 QTC Interval 442 P [place] 26 QRS [place] 23 T Wave [place] 40 IN Interval 165 Impression Sinus rhythm Electronically Signed On 08-21-2023 21:51:55 EDT by Eduard Guan ECHO and EF: No components found for: LVEF, LVEFMODE 07/23/20 SUMMARY: 1. Left ventricle: Not well visualized. Systolic function is by the biplane method of disks. The estimated ejection fraction is 57%. Unable to assess LV diastolic function due to suboptimal technical data 2. Right ventricle: Not well visualized. Systolic function is grossly normal. 3. Atrial septum: Not well visualized. 4. Mitral valve: Not well visualized. Structurally normal valve. 5. Aortic valve: Not well visualized. 6. Tricuspid valve: Not well visualized. 7. Technically difficult study. Electronically signed by: Sherlyn Faria PA-C Date: 09/15/2023 at 3:06 PM [facility] [employer] 09-23-2023 History and physical note H&P reviewed. The patient was examined and there are no changes to the H&P. Discussed Possible Liposuction. Source Note - Sherlyn Faria PA-C - 09/15/2023 1:00 PM EDT Comprehensive PreSurgical History and Physical ? Name: Sophie Hicks : 1965 (Age-57 y.o.) Date of Service: Pt seen/examined on 09/15/2023 Procedure Information Date/Time: 09/16/23 1030 Procedures: CYSTOSCOPY, RETROGRADE PYELOGRAM (Urethra) - 60 MIN POSSIBLE BILATERAL URETEROSCOPY (Bilateral: Urethra) Location: [address] Operating Room Surgeons: Cristo Coyne MD Chief Complaint: Abdominal pannus. Gross hematuria ASSESSMENT/PLAN: Patient is considered intermediate risk for this low/intermediate risk procedure/surgery noted above () with no reducible risk factors. Based on the above evaluation, the benefits of the planned procedure likely exceed the risks. The patient is medically optimized to proceed with the planned procedure without any further cardiopulmonary testing. 1) Abdominal pannus Managed per surgery 2) Gross hematuria Managed per urology - cysto scheduled tomorrow 3) HTN Typically controlled Compliant with meds. Taking bumex Follows with PCP Labs and EKG done BP Readings from Last 3 Encounters: 09/15/23 122/79 09/08/23 102/60 08/27/23 133/68 4) DEMI Resolved after bariatric surgery, no cpap now I would consider higher level of care (continuous pulse ox) with this patient due to DEMI and increased risks 5) COPD/Asthma Per patient, feels at baseline Using daily inhaler, rescue inhaler several times a week Continue inhalers day of surgery Labs, EKG done 6) CKD Labs done Follows with PCP/nephrology Close monitoring and management of fluid volume and electrolytes advised. Avoid nephrotoxic agents 7) CAD, mild S/p cardiac cath, neg stress in the past Denies stents Taking asa, statin Labs, EKG done 8) CVA Occurred in ~2020 or 2021 Denies residual Taking asa, statin Follows with PCP 9) Atrial Fibrillation, paroxysmal Taking asa Follows with pcp EKG and labs done 10) Anxiety / Depression Taking Wellbutrin, buspar, xanax prn Follows with PCP 11) GERD Stable. Currently taking PPI Avoidance of triggers encouraged 12) Hypothyroidism Currently taking synthroid Follows with PCP Visit Type: Pre-Admission Testing Visit Labs Ordered: NO - COMPLETE PRIOR TO PAT VISIT Sleep Referral Ordered: no cpap. Demi resolved with weight loss Total time spent (which include face to face and non face to face encounters) : 60 minutes Toxic drug monitoring/narrow therapeutic index drug monitoring : # Drug name : bumex # Route administered : po # Method of monitoring : bmp PAT Protocol referenced includes: 1. Anesthesia Lab Protocol Orders 2. Perioperative Cardiovascular Risk Assessment 3. Anesthesia Assessment 4. Pain Assessment and Acute Pain Service Consult (if appropriate) 5. Medical Clearance/Consult from Internal Medicine (IMS) 6. Shower/Wash Order (for designated surgeries) 7. DEMI Screen and Sleep Clinic Referral (if appropriate) History Of Present Illness: 57 y.o. male who presents with chief complaint mentioned above. Per surgeon's note Pt c/o symptomatic abdominal pannus. Patient underwent bariatric surgery over 19 months ago. At that time, patient's BMI was near 50. After bariatric surgery, patient has had dramatic success with weight loss. Patient has maintained excellent protein intake, regular diet, and consistent exercise. Patient is lost the vast majority of his excess body weight and BMI has been between 35 and 37. Patient states his weight has been stable for at least the last 10 months. Patient states that after approximately 6 months of weight loss he began having symptomatic skin issues. Patient has symptomatic abdominal pannus that overhangs his pubic tubercle, overhangs and partially buries his genitals, with symptomatic skin issues including rashes, irritation, and pulling on his back. Patient states this interferes with his daily activity including ambulation and daily activity as well as urination and other bodily functions. Patient states despite regular and consistent diet and exercise the symptoms have worsened with weight loss and extra skin. Patient has attempted many conservative measures including meticulous hygiene, skin care, topical antifungals, compression garments/clothing. This has not resulted in improvement. pt also c/o return of gross hematuria status post cystoscopy with Dr. Coyne 08/10/2023 & numerous catheterizations during hospitalization 08/18/2023. In ED again 08/20 with hematuria. His urine cultures have been negative for growth & prior CT negative, along with cystoscopy negative for masses. Pt has seen the surgeon and elected for above procedure. DM was prior to bariatric surgery, stable now no meds Denies Hx of CHF, FL, DVT/PE Hx problems with anesthesia? - awareness under anesthesia during dental implant surgery Motion sickness sometimes upper and lower permanent implants Past Medical History: Past Medical History: No date: Abdominal pain No date: Atrial fibrillation (HCC) Comment: transient; resolved No date: Awareness under anesthesia No date: Back pain 01/29/2015: Benign essential HTN No date: Blood circulation, collateral No date: CAD (coronary artery disease) Comment: mild - dx on cath - neg stress No date: Cerebral artery occlusion with cerebral infarction (HCC) No date: Chronic kidney disease No date: COPD (chronic obstructive pulmonary disease) (HCC) No date: COVID-19 Comment: 05/0309/25/2020: COVID-19 vaccine series completed Comment: Moderna 12/04/2020: COVID-19 vaccine series completed Comment: BOOSTER 12/25/2004: CS (cervical spondylosis) Comment: CERVICAL SPINE DJD No date: Difficulty sleeping No date: Dizziness No date: GERD (gastroesophageal reflux disease) 06/21/2013: History of colonic polyps Comment: repeat 2019 No date: Hyperlipidemia No date: Hypothyroidism 08/15/2014: Insomnia No date: Joint pain, hip No date: Joint pain, knee No date: Memory difficulties No date: Muscle weakness 09/30/2020: Peripheral polyneuropathy No date: Shortness of breath at rest No date: Sleep apnea Comment: resolved with weight loss No date: Snoring No date: SOBOE (shortness of breath on exertion) 03/19/2021: Type 2 diabetes mellitus (HCC) Comment: resolved after weight loss Past Surgical History: Past Surgical History: No date: APPENDECTOMY 12/03/2021: BARIATRIC SURGERY Comment: Dr. Trevino 12/17/2013: CARDIAC CATHETERIZATION Comment: NORMAL CORONARY ARTERIES AND LVEF. No date: COLONOSCOPY 2020: COLONOSCOPY 10/26/2020: CYSTOSCOPY 11/19/2020: CYSTOSCOPY 03/02/2023: EGD (HISTORICAL) No date: NECK SURGERY Comment: Posterior cervical fusion No date: ROTATOR CUFF REPAIR; Bilateral 01/24/2021: UPPER GASTROINTESTINAL ENDOSCOPY Comment: Dr. Cabello Medications Prior to Admission: Current Outpatient Medications: Advair Diskus 250-50 MCG/ACT aerosol powder , INHALE 1 PUFF INTO THE LUNGS TWICE DAILY, Disp: 1 each, Rfl: 10 ALPRAZolam (Xanax) 1 MG tablet, Take 1 mg by mouth every 24 hours as needed., Disp: , Rfl: aspirin 81 MG EC tablet, 81 mg daily., Disp: , Rfl: atorvastatin (Lipitor) 80 MG tablet, Take 80 mg by mouth daily., Disp: , Rfl: baclofen (Lioresal) 10 MG tablet, Take 10 mg by mouth 2 times daily., Disp: , Rfl: bumetanide (Bumex) 1 MG tablet, Take 1 mg by mouth in the morning and 1 mg before bedtime., Disp: , Rfl: buPROPion XL (Wellbutrin XL) 150 MG 24 hr tablet, Take 150 mg by mouth daily., Disp: , Rfl: busPIRone (Buspar) 10 MG tablet, Take 10 mg by mouth 2 times daily., Disp: , Rfl: calcium citrate 250 MG tablet, Take 2 tablets (500 mg) by mouth in the morning and 2 tablets (500 mg) at noon and 2 tablets (500 mg) before bedtime. Take 2 tablets by mouth three times daily.., Disp: 180 tablet, Rfl: 3 cholestyramine (Questran) 4 g packet, Every 24 hours., Disp: , Rfl: Continuous Blood Gluc Sensor (FreeStyle Alexandra 2 Sensor) [facility] [place]ED; CHANGE SENSOR EVERY 14 DAYS, Disp: , Rfl: dicyclomine (Bentyl) 10 MG capsule, Take 10 mg by mouth in the morning and 10 mg at noon and 10 mg in the evening and 10 mg before bedtime., Disp: , Rfl: finasteride (Proscar) 5 MG tablet, Take 1 tablet (5 mg) by mouth daily. Do not crush, chew, or split., Disp: 90 tablet, Rfl: 3 fluticasone (Flonase) 50 MCG/ACT nasal spray, Every 24 hours., Disp: , Rfl: gabapentin (Neurontin) 300 MG capsule, Take 600 mg by mouth 3 times daily., Disp: , Rfl: levothyroxine (Synthroid, Levoxyl) 75 MCG tablet, , Disp: , Rfl: lidocaine (Uro-Jet) 2 % gel, Insert into the urethra as needed for mild pain (1-3)., Disp: 5 mL, Rfl: 1 Multiple Vitamins-Minerals (MULTIVITAMIN ADULTS 50+ PO), Take by mouth., Disp: , Rfl: oxyCODONE-acetaminophen (Percocet) 5-325 MG tablet, Take 1 tablet by mouth 3 times daily., Disp: , Rfl: pantoprazole (ProtoNix) 40 MG EC tablet, take 1 tablet by mouth once daily, Disp: 120 tablet, Rfl: 0 sertraline (Zoloft) 50 MG tablet, Take 50 mg by mouth daily., Disp: , Rfl: tadalafil (Cialis) 5 MG tablet, Take 1 tablet (5 mg) by mouth daily., Disp: 30 tablet, Rfl: 11 tamsulosin (Flomax) 0.4 MG 24 hr capsule, Take 1 capsule (0.4 mg) by mouth daily., Disp: 90 capsule, Rfl: 3 tiZANidine (Zanaflex) 2 MG tablet, Take 2 mg by mouth 2 times daily as needed., Disp: , Rfl: traMADol ER (Ultram-ER) 300 MG 24 hr tablet, Take 300 mg by mouth 3 times daily., Disp: , Rfl: Ventolin HFA 108 (90 Base) MCG/ACT inhaler, Inhale 2 puffs every 6 hours as needed., Disp: , Rfl: zinc gluconate 50 MG tablet, Take 1 tablet by mouth daily., Disp: , Rfl: CHRONIC NARCOTIC USE: percocet from pcp Allergies: Iodinated contrast media and Nsaids If patient has opioid allergy, is it okay to take Acetaminophen: N/A Social History: TOBACCO: reports that he has never smoked. He has never used smokeless tobacco. ETOH: reports no history of alcohol use. Social History Substance and Sexual Activity Drug Use No Family History: Family History Problem Relation Name Age of Onset Osteoarthritis Mother Lung cancer Mother smoker Coronary artery disease Other REVIEW OF SYSTEMS: Review of Systems Constitutional: Negative for chills and fever. Respiratory: Negative for shortness of breath. Cardiovascular: Negative for chest pain. Pertinent positives as noted in the HPI. Physical Exam: Physical Exam Constitutional: General: He is awake. He is not in acute distress. Appearance: Normal appearance. HENT: Head: Normocephalic and atraumatic. Eyes: Extraocular Movements: Extraocular movements intact. Conjunctiva/sclera: Conjunctivae normal. Cardiovascular: Rate and Rhythm: Normal rate and regular rhythm. Heart sounds: Normal heart sounds. Pulmonary: Effort: Pulmonary effort is normal. Breath sounds: Normal breath sounds. Abdominal: Palpations: Abdomen is soft. Musculoskeletal: General: Normal range of motion. Cervical back: Normal range of motion. Skin: General: Skin is warm and dry. Neurological: General: No focal deficit present. Mental Status: He is alert and oriented to person, place, and time. Psychiatric: Mood and Affect: Mood normal. Behavior: Behavior normal. Behavior is cooperative. Vitals: Vitals Value Taken Time BP 122/79 09/15/23 1258 Temp 36.2 C (97.1 F) 09/15/23 1258 Pulse 77 09/15/23 1258 Resp 16 09/15/23 1258 SpO2 97 % 09/15/23 1258 BP 122/79 Pulse 77 Temp 36.2 C (97.1 F) (Temporal) Resp 16 Ht 1.854 m (6' 1) Wt 122 kg (268 lb) SpO2 97% BMI 35.36 kg/m Labs: Lab Results Component Value Date WBC 9.2 08/21/2023 HGB 14.0 08/21/2023 HCT 41.6 08/21/2023 MCV 88.3 08/21/2023 PLT 163 08/21/2023 Lab Results Component Value Date NA 138 08/21/2023 K 4.1 08/21/2023 CL 103 08/21/2023 CO2 24 08/21/2023 BUN 23 (H) 08/21/2023 CREATININE 1.83 (H) 08/21/2023 GLUCOSE 119 (H) 08/21/2023 CALCIUM 9.0 08/21/2023 PROT 7.0 08/21/2023 ALKPHOS 80 08/21/2023 AST 26 08/21/2023 ALT 17 08/21/2023 EGFR 42.0 (L) 08/21/2023 Lab Results Component Value Date HGBA1C 5.5 11/20/2021 HGBA1C 5.5 07/16/2021 HGBA1C 6.5 (A) 11/16/2020 Roderick's Simple Cardiac Risk Index: RODERICK'S SIMPLE CARDIAC RISK SCORE: 2 Interpretation: 0 Points Class I 0.5% 1 Point Class II 1.3% 2 Points Class III 3.6% 3+ Points Class IV 9.1% METS >4 METS (Able to climb a flight of stairs with no chest pain or shortness of breath): Yes goes slow Walk indoors, such as around the house (1.75 METs), Do light work around the house, such as dusting or washing dishes (2.70 METs), Take care of self, that is eating, dressing, bathing, using the toilet (2.75 METs), Do moderate work around the house such as vacuuming, sweeping floors, or carrying in groceries (3.50 METs), Do yardwork, such as raking leaves, weeding,or pushing a power mower (4.50 METs), Climb a flight of stairs or walk up a hill (5.50 METs) PAT Pain Score: 0 Postop Pain Management Plan (Pain consult ordered?): Pain consult not indicated at this time ? EKG: Done recently Encounter Date: 08/21/23 ECG 12 lead Result Value Heart Rate 95 QRSD Interval 87 QT Interval 351 QTC Interval 442 P [place] 26 QRS [place] 23 T Wave [place] 40 IN Interval 165 Impression Sinus rhythm Electronically Signed On 08-21-2023 21:51:55 EDT by Eduard Guan ECHO and EF: No components found for: LVEF, LVEFMODE 4/12/21 SUMMARY: 1. Left ventricle: Not well visualized. Systolic function is by the biplane method of disks. The estimated ejection fraction is 57%. Unable to assess LV diastolic function due to suboptimal technical data 2. Right ventricle: Not well visualized. Systolic function is grossly normal. 3. Atrial septum: Not well visualized. 4. Mitral valve: Not well visualized. Structurally normal valve. 5. Aortic valve: Not well visualized. 6. Tricuspid valve: Not well visualized. 7. Technically difficult study. Electronically signed by: Sherlyn Faria PA-C Date: 09/15/2023 at 3:06 PM documented in this encounter [facility] 09-23-2023 Note Formatting of this n ote might be different from the original. Patient educated on importance of coughing/ deep breathing after surgery to reduce risk of pneumonia. Patient educated on importance of early mobility to reduce the risk of blood clots. Falls prevention information reviewed with patient. Post-operative pain control and ways to prevent constipation discussed with patient. [facility] 09-23-2023 Note Formatting of this n ote might be different from the original. Patient educated on importance of coughing/ deep breathing after surgery to reduce risk of pneumonia. Patient educated on importance of early mobility to reduce the risk of blood clots. Falls prevention information reviewed with patient. Post-operative pain control and ways to prevent constipation discussed with patient. [facility] 09-22-2023 History of Presen t illness Narrative Patient presents for preoperative markings Patient with Haning abdominal pannus Patient with mild candidal infection right groin Plan for starting oral antibiotics/antifungals Discussed patient risk and benefits including seroma, hematoma, infection, asymmetry, incomplete correction, need for additional surgery, poor scarring, poor wound healingbleeding, poor contour, loss of umbilicus, DVT, PE,and discussed with patient perioperative protocol Patient marked in standing position Follow-up postop documented in this encounter [facility] 09-17-2023 Telephone encounter Note Pre-op- 09/22/2023 9:10am Wads Post-op-09/29/2023 10:30 am AES [facility] 09-17-2023 Miscellaneous Notes Pre-op- 09/22/2023 9:10am Wads Post-op-09/29/2023 10:30 am AES Patient called office confused about appointments. I reminded him of our conversation earlier today and went over all surgery related appointment dates and times. He voiced understanding. Patient returned call. Scheduled for 09/23/2023 at 9:00am at [facility]. Called [employer] to get information on appeal. [employer] stated that prior authorization #[id number] was approved. Called patient to schedule surgery. Lvm to call our office to schedule surgery. Received prior authorization denial. Scanned into chart. Faxed an appeal to CMS. Patient called into office letting our office know he received a denial by mail. Patient called into office wanting to schedule surgery. Informed patient we are still waiting for a determination from insurance. He voiced understanding. Case# [id number] Procedure: Panniculectomy Sx Date: 09/23/2023 9:00 am Time: 3.5 hrs Location: [facility] Anesthesia: General CPT: 90681 ICD-10: E65 Special Equipment: N/A PAT: [facility] 09/16/2023 2:30 pm Faxed prior authorization request to [facility]. Confirmation fax received. Authorization # [id number] approved and scanned into chart. Spoke with patient to schedule. Went over surgical details and sent Mychart. documented in this encounter [facility] 09-17-2023 Telephone encounter Note S: Patient spoke with CAC nurse regarding post op pain and medications. B: Onset of symptoms/concern: surgery today, he is home now. A: Patient states he has post op pain. States his picked up his medication at [facility], but he did not receive the percocet or the lidocaine Uro-jet gel. R: Checked Epic, advised prescriptions were sent to his pharmacy. Called [facility], they are closed, pharmacy opens at 9AM. Advised patient to call the pharmacy when they open at 9AM, if not there to call office back and they can be resent. No further needs at this time. Patient instructed to call back with new or worsening symptoms. Reason for Disposition [1] Prescription prescribed recently is not at pharmacy AND [2] triager has access to patient's EMR AND [3] prescription is recorded in the EMR Protocols used: Medication Question [id number] [facility] 09-17-2023 Miscellaneous Notes S: Patient spoke with CAC nurse regarding post op pain and medications. B: Onset of symptoms/concern: surgery today, he is home now. A: Patient states he has post op pain. States his picked up his medication at [facility], but he did not receive the percocet or the lidocaine Uro-jet gel. R: Checked Epic, advised prescriptions were sent to his pharmacy. Called [facility], they are closed, pharmacy opens at 9AM. Advised patient to call the pharmacy when they open at 9AM, if not there to call office back and they can be resent. No further needs at this time. Patient instructed to call back with new or worsening symptoms. Reason for Disposition [1] Prescription prescribed recently is not at pharmacy AND [2] triager has access to patient's EMR AND [3] prescription is recorded in the EMR Protocols used: Medication Question [id number] documented in this encounter [facility] 09-16-2023 Note Formatting of this n ote might be different from the original. Patients nausea has subsided and patient has expressed a desire to go home. Giving patient oral pain medication as pain still a 7. Pain is still burning and aching. [facility] 09-16-2023 Note Formatting of this n ote might be different from the original. Patients nausea has subsided and patient has expressed a desire to go home. Giving patient oral pain medication as pain still a 7. Pain is still burning and aching. [facility] 09-16-2023 Miscellaneous Notes Patients nausea has subsided and patient has expressed a desire to go home. Giving patient oral pain medication as pain still a 7. Pain is still burning and aching. Pt and family verbalized understanding of recovery instructions, pt verbalized a readiness to be discharged home. Pt discharged home via wheelchair accompanied by RN/volunteer. Pt has had all their belongings returned to them at discharge Patient given evan alla and nidhi crackers. Patient tolerating well. Dr. Coyne to see patient. Additional prescriptions added to help with penile pain and bladder spasms Pt up to chair at this time for comfort. Penile pain is intermittent with aching and burning. Dr Coyne aware, will come see pt shortly Patient woke up thrashing in bed complaining his stomach hurt. One dose of dilaudid given with no effect. NADIR Petersen called to evaluate patient. Patient sill thrashing in bed. Patient now says his penis hurts. Another dose of Dilaudid given. NADIR Petersen ordered Ativan as well. Will continue to monitor. Pt received from OR via cart, spont. Resp. With FURNACE OPERATOR AND TENDER in attendance. Placed on monitor. Monitor alarms on in PACU Images from the original note were not included. Cristo Coyne MD 09/16/2023 at 12:33 PM UROLOGY OPERATIVE REPORT PATIENT NAME: Sophie Hicks DATE OF : 1965 TODAY'S DATE: 09/16/2023 PreOp Dx:: Gross hematuria PostOp Dx: Same Operation : Cystoscopy retrograde pyelogram fulguration of prostate bleeding Surgeon Cristo Coyne MD Assist Anesthesia:general lma Ebl: Drains , Specimen: Complications None; patient tolerated the procedure well. Findings: INDICATIONS: Sophie Hicks , is a 57 y.o. male who presents with gross hematuria. Sophie Hicks presents for cystoscopy and pyelogram. The risks benefits and alternatives were explained and the patient wishes to proceed. PROCEDURE: Sophie Hicks Was brought to the operating room. Thorough time out was performed and everyone present was in agreement. Patient was placed on OR table. Anesthesia and lines were maintained by the anesthesia team. General anesthesia was induced he was prepped and draped in usual fashion placed in lithotomy position. Cystoscope was inserted. The urethra was without strictures. He has moderate lateral lobe hypertrophy he has a previous history of UroLift he has some moderate inflammation at the floor of the bladder neck. The bladder mucosa shows trabeculation there is no tumor stone foreign body or fistula. Both ureters are in the normal position. 8 Cymro cone-tip catheter was performed and retrograde pyelograms were performed. There is no filling defects there is no mass or hydronephrosis. The bladder was reinspected. The Bugbee was placed in the inflammation and bleeding from the bladder neck and prostate was widely fulgurated. With the water off no further bleeding was noted. The bladder was drained scope was removed he was awakened and transferred to the cover room having tolerated procedure well. He will follow-up in the office after he recovers from this is a abdominoplasty. He is having significant voiding symptoms and will likely need a TURP. Cristo Coyne MD 09/16/23 12:33 PM documented in this encounter [facility] 09-16-2023 Telephone encounter Note MyChart visit on 12/01/23 at 11:45am with Dr. Coyne. [facility] 09-16-2023 Note Formatting of this n ote might be different from the original. Pt and family verbalized understanding of recovery instructions, pt verbalized a readiness to be discharged home. Pt discharged home via wheelchair accompanied by RN/volunteer. Pt has had all their belongings returned to them at discharge [facility] 09-16-2023 Note Formatting of this n ote might be different from the original. Pt and family verbalized understanding of recovery instructions, pt verbalized a readiness to be discharged home. Pt discharged home via wheelchair accompanied by RN/volunteer. Pt has had all their belongings returned to them at discharge [facility] 09-16-2023 Note Formatting of this n ote might be different from the original. Patient given evan alla and nidhi crackers. Patient tolerating well. [facility] 09-16-2023 Note Formatting of this n ote might be different from the original. Patient given evan alla and nidhi crackers. Patient tolerating well. [facility] 09-16-2023 Note Formatting of this n ote is different from the original. Patient: Sophie Hicks Procedure Summary Date: 09/16/23 Room / Location: [address] Operating Room Anesthesia Start: 1119 Anesthesia Stop: 1209 Procedure: CYSTOSCOPY, RETROGRADE PYELOGRAM FULGARATION OF BLEEDING PROSTATE (Urethra) Diagnosis: Gross hematuria Surgeons: Cristo Coyne MD Responsible Provider: GREG Leavitt CRNA Anesthesia Type: general ASA Status: 3 Anesthesia Type: general Vitals Value Taken Time BP 111/79 09/16/23 1315 Temp 97.2 09/16/23 1335 Pulse 68 09/16/23 1315 Resp 16 09/16/23 1315 SpO2 92 % 09/16/23 1315 Anesthesia Post Evaluation Patient location during evaluation: PACU Patient participation: complete - patient participated Level of consciousness: awake and alert Pain management: satisfactory to patient Airway patency: patent Dental Injury: no Cardiovascular status: acceptable, blood pressure returned to baseline and hemodynamically stable Respiratory status: acceptable and spontaneous ventilation Hydration status: euvolemic Nausea/Vomiting: controlled No notable events documented. Patient can be discharged once all PACU criteria has been met. [facility] 09-16-2023 Miscellaneous Notes Patient: Sophie Hicsk Procedure Summary Date: 09/16/23 Room / Location: [address] Operating Room Anesthesia Start: 1119 Anesthesia Stop: 1209 Procedure: CYSTOSCOPY, RETROGRADE PYELOGRAM FULGARATION OF BLEEDING PROSTATE (Urethra) Diagnosis: Gross hematuria Surgeons: Cristo Coyne MD Responsible Provider: GRGE Leavitt CRNA Anesthesia Type: general ASA Status: 3 Anesthesia Type: general Vitals Value Taken Time BP 111/79 09/16/23 1315 Temp 97.2 09/16/23 1335 Pulse 68 09/16/23 1315 Resp 16 09/16/23 1315 SpO2 92 % 09/16/23 1315 Anesthesia Post Evaluation Patient location during evaluation: PACU Patient participation: complete - patient participated Level of consciousness: awake and alert Pain management: satisfactory to patient Airway patency: patent Dental Injury: no Cardiovascular status: acceptable, blood pressure returned to baseline and hemodynamically stable Respiratory status: acceptable and spontaneous ventilation Hydration status: euvolemic Nausea/Vomiting: controlled No notable events documented. Patient can be discharged once all PACU criteria has been met. documented in this encounter [facility] 09-16-2023 Note Formatting of this n ote might be different from the original. Dr. Coyne to see patient. Additional prescriptions added to help with penile pain and bladder spasms [facility] 09-16-2023 Note Formatting of this n ote might be different from the original. Dr. Coyne to see patient. Additional prescriptions added to help with penile pain and bladder spasms [facility] 09-16-2023 Anesthesiology Postoperative evaluation and management note Patient: Sophie Hicks Procedure Summary Date: 09/16/23 Room / Location: [address] Operating Room Anesthesia Start: 111 Anesthesia Stop: 1209 Procedure: CYSTOSCOPY, RETROGRADE PYELOGRAM FULGARATION OF BLEEDING PROSTATE (Urethra) Diagnosis: Gross hematuria Surgeons: Cristo Coyne MD Responsible Provider: GREG Leavitt CRNA Anesthesia Type: general ASA Status: 3 Anesthesia Type: general Vitals Value Taken Time BP 111/79 09/16/23 1315 Temp 97.5 09/16/23 1323 Pulse 68 09/16/23 1315 Resp 16 09/16/23 1315 SpO2 92 % 09/16/23 1315 Anesthesia Post Evaluation Patient location during evaluation: PACU Patient participation: complete - patient participated Level of consciousness: awake and alert Pain management: satisfactory to patient Multimodal analgesia pain management approach Airway patency: patent Two or more strategies used to mitigate risk of obstructive sleep apnea Cardiovascular status: acceptable and hemodynamically stable Respiratory status: acceptable Hydration status: acceptable No notable events documented. MIPS #430 PONV Patient received an inhalational anesthetic (4554F) Patient does not exhibit three or more risk factors for PONV (X0430)) MIPS # 424 Perioperative Temperature Management Anesthesia time was 60 minutes or longer (4255F) Anesthesai administered was General (inhalational or TIVA) or Neuraxial block (X0424) At least one body temperature greater than 95.8F/35.5C achieved within the 30 mins immediately prior to or the 15 minutes immediately following anesthesia end time (G9771) MIPS #477 Multimodal Pain Management Not emergent case Patient was administered multimodal pain management (two or more drugs and/or interventions excluding systemic opioids) in the periopeartive period occurring at some time between 6 hours prior to anesthesia start time until discharged from PACU (G2148) MIPS #404 Anesthesiology Smoking Abstinence The patient is not a current smoker (e.g. cigarette, cigar, pipe, e-cigarette/vaping/marijuana) If no stop here (XX404) I completed my handoff to the receiving clinician during which we: 1. Identified the patient 2. Identified the responsible provider 3. Reviewed the pertinent medical history 4. Discussed the surgical course 5. Reviewed intra-op anesthesia management and issues during anesthesia 6. Set expectations for post-procedure period 7. Allowed opportunity for questions and acknowledgement of understanding. [employer] Phone: 09-16-2023 Surgical operatio n note Patient: Sophie Hicks Procedure Summary Date: 09/16/23 Room / Location: [address] Operating Room Anesthesia Start: 1119 Anesthesia Stop: 1209 Procedure: CYSTOSCOPY, RETROGRADE PYELOGRAM FULGARATION OF BLEEDING PROSTATE (Urethra) Diagnosis: Gross hematuria Surgeons: Cristo Coyne MD Responsible Provider: GREG Leavitt CRNA Anesthesia Type: general ASA Status: 3 Anesthesia Type: general Vitals Value Taken Time BP 111/79 09/16/23 1315 Temp 97.5 09/16/23 1323 Pulse 68 09/16/23 1315 Resp 16 09/16/23 1315 SpO2 92 % 09/16/23 1315 Anesthesia Post Evaluation Patient location during evaluation: PACU Patient participation: complete - patient participated Level of consciousness: awake and alert Pain management: satisfactory to patient Multimodal analgesia pain management approach Airway patency: patent Two or more strategies used to mitigate risk of obstructive sleep apnea Cardiovascular status: acceptable and hemodynamically stable Respiratory status: acceptable Hydration status: acceptable No notable events documented. MIPS #430 PONV Patient received an inhalational anesthetic (4554F) Patient does not exhibit three or more risk factors for PONV (X0430)) MIPS # 424 Perioperative Temperature Management Anesthesia time was 60 minutes or longer (4255F) Anesthesai administered was General (inhalational or TIVA) or Neuraxial block (X0424) At least one body temperature greater than 95.8F/35.5C achieved within the 30 mins immediately prior to or the 15 minutes immediately following anesthesia end time (G9771) MIPS #477 Multimodal Pain Management Not emergent case Patient was administered multimodal pain management (two or more drugs and/or interventions excluding systemic opioids) in the periopeartive period occurring at some time between 6 hours prior to anesthesia start time until discharged from PACU (G2148) MIPS #404 Anesthesiology Smoking Abstinence The patient is not a current smoker (e.g. cigarette, cigar, pipe, e-cigarette/vaping/marijuana) If no stop here (XX404) I completed my handoff to the receiving clinician during which we: 1. Identified the patient 2. Identified the responsible provider 3. Reviewed the pertinent medical history 4. Discussed the surgical course 5. Reviewed intra-op anesthesia management and issues during anesthesia 6. Set expectations for post-procedure period 7. Allowed opportunity for questions and acknowledgement of understanding. Associated Order(s): Airway Airway Date/Time: 09/16/2023 11:23 AM Urgency: scheduled General Information and Staff Patient location during procedure: Procedural Anesthesiologist: Amna Anesthesiologist - Sbh/Msc, Resident/FURNACE OPERATOR AND TENDER: GREG Leavitt CRNA Performed: FURNACE OPERATOR AND TENDER Indications and Patient Condition Indications for airway management: anesthesia Sedation level: Asleep Preoxygenated: yes Patient position: C spine neutral Mask difficulty assessment: 0 - not attempted Final Airway Details Final airway type: supraglottic airway Successful airway: Igel Size 4 Number of attempts at approach: 1 Ventilation between attempts: spontaneous Number of other approaches attempted: 0 Patient: Sophie Hicks Procedure Information Date/Time: 09/16/23 1030 Procedures: CYSTOSCOPY, RETROGRADE PYELOGRAM (Urethra) - 60 MIN POSSIBLE BILATERAL URETEROSCOPY (Bilateral: Urethra) Location: [address] Operating Room Surgeons: Cristo Coyne MD Relevant Problems Anesthesia (+) Awareness under anesthesia (+) History of colonic polyps (+) History of snoring (+) Hx: nephrotic syndrome (+) DEMI (obstructive sleep apnea) (+) DEMI on CPAP (-) Delayed emergence from anesthesia (-) Difficult intravenous access (-) Family history of malignant hyperthermia (-) Malignant hyperthermia (-) PONV (postoperative nausea and vomiting) Cardio (+) Benign essential HTN (+) CAD (coronary artery disease) (+) CHF (congestive heart failure) (HCC) (+) Hyperlipidemia (+) Occlusion and stenosis of bilateral carotid arteries Endo (+) Type 2 diabetes mellitus (HCC) GI (+) GERD (gastroesophageal reflux disease) /Renal (+) Diffuse membranous glomerulonephritis (+) Nephrotic syndrome (+) Nephrotic syndrome with membranous glomerulonephritis Neuro/Psych (+) TIA (transient ischemic attack) Pulmonary (+) Mucopurulent chronic bronchitis (HCC) (+) DEMI (obstructive sleep apnea) (+) DEMI on CPAP Past Medical History: Past Medical History: No date: Abdominal pain No date: Atrial fibrillation (HCC) Comment: transient; resolved No date: Awareness under anesthesia No date: Back pain 01/29/2015: Benign essential HTN No date: Blood circulation, collateral No date: CAD (coronary artery disease) Comment: mild - dx on cath - neg stress No date: Cerebral artery occlusion with cerebral infarction (HCC) No date: Chronic kidney disease No date: COPD (chronic obstructive pulmonary disease) ([facility]) No date: COVID-19 Comment: 05/0309/25/2020: COVID-19 vaccine series completed Comment: Moderna 12/04/2020: COVID-19 vaccine series completed Comment: BOOSTER 12/25/2004: CS (cervical spondylosis) Comment: CERVICAL SPINE DJD No date: Difficulty sleeping No date: Dizziness No date: GERD (gastroesophageal reflux disease) 06/21/2013: History of colonic polyps Comment: repeat 2019 No date: Hyperlipidemia No date: Hypothyroidism 08/15/2014: Insomnia No date: Joint pain, hip No date: Joint pain, knee No date: Memory difficulties No date: Muscle weakness 09/30/2020: Peripheral polyneuropathy No date: Shortness of breath at rest No date: Sleep apnea Comment: resolved with weight loss No date: Snoring No date: SOBOE (shortness of breath on exertion) 03/19/2021: Type 2 diabetes mellitus ([facility]) Comment: resolved after weight loss Past Surgical History: Past Surgical History: No date: APPENDECTOMY 12/03/2021: BARIATRIC SURGERY Comment: Dr. Trevino 12/17/2013: CARDIAC CATHETERIZATION Comment: NORMAL CORONARY ARTERIES AND LVEF. No date: COLONOSCOPY 2020: COLONOSCOPY 10/26/2020: CYSTOSCOPY 11/19/2020: CYSTOSCOPY 03/02/2023: EGD (HISTORICAL) No date: NECK SURGERY Comment: Posterior cervical fusion No date: ROTATOR CUFF REPAIR; Bilateral 01/24/2021: UPPER GASTROINTESTINAL ENDOSCOPY Comment: Dr. Cabello Social History: TOBACCO: reports that he has never smoked. He has never used smokeless tobacco. ETOH: reports no history of alcohol use. Social History Substance and Sexual Activity Drug Use No Family History: Family History Problem Relation Name Age of Onset Osteoarthritis Mother Lung cancer Mother smoker Coronary artery disease Other Screening: unknown Clinical information reviewed: Tobacco Allergies Meds Med Hx Surg Hx Fam Hx Soc Hx Physical Exam Airway Mallampati: II TM distance: >3 FB Neck ROM: full Mouth Open: normal Cardiovascular Dental Comments: upper and lower permanent implants dentition normal Pulmonary Abdominal Anesthesia Plan patient is NPO appropriate Any family history or previous problems with anesthesia no ASA 3 general Any family history or previous problems with anesthesia no The patient is not a current smoker. Anesthetic plan and risks discussed with patient. DEMI Screening STOP-Bang Total Score: 4 Labs: Lab Results Component Value Date WBC 9.2 08/21/2023 HGB 14.0 08/21/2023 HCT 41.6 08/21/2023 MCV 88.3 08/21/2023 PLT 163 08/21/2023 Lab Results Component Value Date NA 138 08/21/2023 K 4.1 08/21/2023 CL 103 08/21/2023 CO2 24 08/21/2023 BUN 23 (H) 08/21/2023 CREATININE 1.83 (H) 08/21/2023 GLUCOSE 119 (H) 08/21/2023 CALCIUM 9.0 08/21/2023 PROT 7.0 08/21/2023 ALKPHOS 80 08/21/2023 AST 26 08/21/2023 ALT 17 08/21/2023 EGFR 42.0 (L) 08/21/2023 No echocardiogram results found for the past 14 days 08/21/23 ECG 12-LEAD 08/21/2023 9:51 PM (Final) Impression Sinus rhythm Electronically Signed On 08-21-2023 21:51:55 EDT by Eduard Guan Signed by: Eduard Guan MD on 08/21/2023 9:51 PM documented in this encounter [facility] 09-16-2023 Procedure anesthe madi Narrative Procedure Name Responsible Anesthesiologist Anesthesia Start Time Anesthesia Stop Time CYSTOSCOPY, RETROGRADE PYELOGRAM FULGARATION OF BLEEDING PROSTATE (Urethra) No Anesthesiologist - Tisha/MD Negra 09/16/23 1119 09/16/23 1209 Events Date Time Event Comment 09/16/2023 0954 1119 An Start 1119 An Start Data 1119 In Room 1121 An Induction The patient was reevaluated immediately before moderate or deep sedation use and before anesthesia induction. 1123 An Intubation 1125 Anesthesia Ready 1136 Proc Start 1201 Proc Fin 1202 An Extubation - Spontaneous ventilation - Patient suctioned - Airway removed without difficulty - Spontaneous ventilation maintained 1203 an stop data 1205 Out of Room 1209 An Stop Meds Name Total midazolam (Versed) injection 2 mg/2 mL 2 mg lidocaine PF (Xylocaine-MPF) local injec tion 2 % 100 mg propofol (Diprivan) injection 10 mg/mL 3 00 mg dexAMETHasone (Decadron) PF injection 10 mg/mL 4 mg esmolol (Brevibloc) 60 mg dexmedetomidine (Precedex) 40 mcg in sod ium chloride 0.9 % 10 mL injection 8 mcg ondansetron (Zofran) 2 mg/mL injection 4 mg ceFAZolin (Ancef) 1,000 mg in sodium chl oride 0.9 % 50 mL IVPB 3,000 mg lactated Ringer's (LR) infusion 300 mL * Agents Name O2 Air Isoflurane * Blood No blood administrations on file. Lines, Drains, and Airways Type Details Placement Removal Peripheral IV Placement Date: 09/16/23; Placement Time: 0943; Catheter Size: 20 G; Orientation: Posterior, Right; Location: Forearm; Site Prep: Alcohol; Technique: Anatomical landmarks; Inserted by: CIRO ABREU; Removal Date: 09/16/23; Removal Time: 1430 09/16/23 0943 by Sharri Jackson RN 09/16/23 1430 by Rupali Mathew RN Supraglottic Airway Placement Date: 09/16/23; Placement Time: 1123 (created via procedure documentation); Mask Ventilation: 0; Size: 4; Insertion Attempts: 1; Removal Date: 09/16/23; Removal Time: 1202 09/16/23 1123 by GREG Leavitt CRNA 09/16/23 1202 by GREG Leavitt CRNA documented in this encounter [id number]* Perioperative Nursing Note - Lucy Mckinnon RN - 09/16/2023 1:10 PM EDT Pt up to chair at this time for comfort. Penile pain is intermittent with aching and burning. Dr Coyne aware, will come see pt shortly [employer] Phone: 1(432) 503-728706-05-2024 Note* Perioperative Nursing Note - Lucy Mckinnon RN - 09/16/2023 1:10 PM EDT Pt up to chair at this time for comfort. Penile pain is intermittent with aching and burning. Dr Coyne aware, will come see pt shortly [employer] Phone: 1(848) 453-906106-05-2024 Telephone encounter Note* Telephone Encounter - Cristo Coyne MD - 09/16/2023 12:38 PM EDT He had cystoscopy pyelogram and fulguration. He needs to follow-up with me in 10 weeks. It can be avirtual visit [id number] Note* Perioperative Nursing Note - Rupali Mathew RN - 09/16/2023 12:15 PM EDT Patient woke up thrashing in bed complaining his stomach hurt. One dose of dilaudid given with no effect. NADIR Petersen called to evaluate patient. Patient sill thrashing in bed. Patient now says his penis hurts. Another dose of Dilaudid given. NADIR Petersen ordered [facility] as well. Will continue to monitor. [id number] Note* Perioperative Nursing Note - Rupali Mathew RN - 09/16/2023 12:15 PM EDT Patient woke up thrashing in bed complaining his stomach hurt. One dose of dilaudid given with no effect. NADIR Petersen called to evaluate patient. Patient sill thrashing in bed. Patient now says his penis hurts. Another dose of Dilaudid given. NADIR Petersen ordered Ativan as well. Will continue to monitor. [id number] Note* Perioperative Nursing Note - Rupali Mathew RN - 09/16/2023 12:07 PM EDT Pt received from OR via cart, spont. Resp. With FURNACE OPERATOR AND TENDER in attendance. Placed on monitor. Monitor alarms on in PACU [id number] Note* Perioperative Nursing Note - Rupali Mathew RN - 09/16/2023 12:07 PM EDT Pt received from OR via cart, spont. Resp. With FURNACE OPERATOR AND TENDER in attendance. Placed on monitor. Monitor alarms on in PACU [id number] Anesthesiology procedure note* Anesthesia Procedure Notes - GREG Leavitt CRNA - 09/16/2023 11:40 AM EDTAssociated Order(s): Airway Airway Date/Time: 09/16/2023 11:23 AM Urgency: scheduled General Information and Staff Patient location during procedure: Procedural Anesthesiologist: No Anesthesiologist - Tisha/Negra, Resident/FURNACE OPERATOR AND TENDER: GREG Leavitt CRNA Performed: FURNACE OPERATOR AND TENDER Indications and Patient Condition Indications for airway management: anesthesia Sedation level: Asleep Preoxygenated: yes Patient position: C spine neutral Mask difficulty assessment: 0 - not attempted Final Airway Details Final airway type: supraglottic airway Successful airway: Igel Size 4 Number of attempts at approach: 1 Ventilation between attempts: spontaneous Number of other approaches attempted: 0 [id number] Note* Op Note - Cristo Coyne MD - 09/16/2023 11:19 AM EDT Images from the original note were not included. Cristo Coyne MD 09/16/2023 at 12:33 PM UROLOGY OPERATIVE REPORT PATIENT NAME: Sophie Hicks DATE OF : 1965 TODAY'S DATE: 09/16/2023 PreOp Dx:: Gross hematuria PostOp Dx: Same Operation : Cystoscopy retrograde pyelogram fulguration of prostate bleeding Surgeon Cristo Coyne MD Assist Anesthesia:general lma Ebl: Drains , Specimen: Complications None; patient tolerated the procedure well. Findings: INDICATIONS: Sophie Hicks , is a 57 y.o. male who presents with gross hematuria. Sophie Hicks presents for cystoscopy and pyelogram. The risks benefits and alternatives were explained and the patient wishes to proceed. PROCEDURE: Sophie Hicks Was brought to the operating room. Thorough time out was performed and everyone present was in agreement. Patient was placed on OR table. Anesthesia and lines were maintained by the anesthesia team. General anesthesia was induced he was prepped and draped in usual fashion placed in lithotomy position. Cystoscope was inserted. The urethra was without strictures. He has moderate lateral lobe hypertrophy he has a previous history of UroLift he has some moderate inflammation at the floor of the bladder neck. The bladder mucosa shows trabeculation there is no tumor stone foreign body or fistula. Both ureters are in the normal position. 8 Cymro cone-tip catheter was performed and retrograde pyelograms were performed. There is no filling defects there is no mass or hydronephrosis. The bladder was reinspected. The Bugbee was placed in the inflammation and bleeding from the bladder neck and prostate was widely fulgurated. With the water off no further bleeding was noted. The bladder was drained scope was removed he was awakened and transferred to the cover room having tolerated procedure well. He will follow-up in the office after he recovers from this is a abdominoplasty. He is having significant voiding symptoms and will likely need a TURP. Cristo Coyne MD 09/16/23 12:33 PM [facility] [id number] Note* Op Note - Cristo Coyne MD - 09/16/2023 11:19 AM EDT Images from the original note were not included. Cristo Coyne MD 09/16/2023 at 12:33 PM UROLOGY OPERATIVE REPORT PATIENT NAME: Sophie Hicks DATE OF : 1965 TODAY'S DATE: 09/16/2023 PreOp Dx:: Gross hematuria PostOp Dx: Same Operation : Cystoscopy retrograde pyelogram fulguration of prostate bleeding Surgeon Cristo Coyne MD Assist Anesthesia:general lma Ebl: Drains , Specimen: Complications None; patient tolerated the procedure well. Findings: INDICATIONS: Sophie Hicks , is a 57 y.o. male who presents with gross hematuria. Sophie Hicks presents for cystoscopy and pyelogram. The risks benefits and alternatives were explained and the patient wishes to proceed. PROCEDURE: Sophie Hicks Was brought to the operating room. Thorough time out was performed and everyone present was in agreement. Patient was placed on OR table. Anesthesia and lines were maintained by the anesthesia team. General anesthesia was induced he was prepped and draped in usual fashion placed in lithotomy position. Cystoscope was inserted. The urethra was without strictures. He has moderate lateral lobe hypertrophy he has a previous history of UroLift he has some moderate inflammation at the floor of the bladder neck. The bladder mucosa shows trabeculation there is no tumor stone foreign body or fistula. Both ureters are in the normal position. 8 Cymro cone-tip catheter was performed and retrograde pyelograms were performed. There is no filling defects there is no mass or hydronephrosis. The bladder was reinspected. The Bugbee was placed in the inflammation and bleeding from the bladder neck and prostate was widely fulgurated. With the water off no further bleeding was noted. The bladder was drained scope was removed he was awakened and transferred to the cover room having tolerated procedure well. He will follow-up in the office after he recovers from this is a abdominoplasty. He is having significant voiding symptoms and will likely need a TURP. Cristo Coyne MD 09/16/23 12:33 PM [facility] [id number] Hospital Discharge instructions* Discharge Instructions* Cristo Coyne MD - 09/16/2023 10:00 AM EDT Post-Operative Instructions These are general instructions for you to follow after your surgery. Your doctor or a member of hisor her staff will outline any additional or special instructions that pertain to you. Before Surgery: - A packet of information will be sent to you. It contains helpful information, details about how to prepare for surgery, and where to arrive on the day of surgery. Maps and local hotel information are sent to persons from out of town. If you have questions or have not received this information, please call our office at . - All patients having surgery will need a physical completed to clear them medically for surgery. Pre-operative testing is completed approx. 1-2 weeks before your planned surgery. These tests will bedone either at your pre- operative day at [facility], [facility], or with your regular doctor. - Some patients may require additional testing such as a stress test or cardiac clearance. - At the time of your pre-operative visit the following tests may be completed: Blood work, an EKG,and/ or a Chest X-ray - The day before your surgery you will need to call the surgical scheduling office to confirm your arrival time. - You may need to complete a bowel prep the day before your surgery. You will be given instructionsand your bowel preparation when you come in for your pre- operative appointment. After your bowel prep is completed, you will only be able to have clear liquids for the rest of the evening. If you complete a bowel prep, you will not be able to eat dinner the night before your surgery. - Do NOT eat or drink anything after midnight the night before your surgery. Medications: - Your information packet will contain a list of medications that need to be stopped before surgery. - Do not take Aspirin, Motrin or Ibuprofen for 2 weeks before surgery. - Stop taking all herbal remedies 2 weeks before your surgery. - Please make certain that we know if you take medication that affected bleeding or is a blood thinner. Examples of these include Coumadin, Warfarin or Plavix. A safe plan will need to be made about how and when you take this medication near the time of your surgery. The Day of Surgery - Please report to the designated area at your confirmed arrival time. - Before you are taken to the operating room, you will change into a gown and have an IV started. - An anesthesiologist will come speak with you about the surgery and answer any questions that you may have. - Your family may stay with you in the pre-op area until you are taken to the operating room. Home Going Instructions: Activity: You are encouraged to walk every day, increasing the distance each day. You may go up anddown steps, but please rest when you are tired. - Do NOT drive for 2-3 days after surgery or until you are not taking pain medications. You may ride in a car or plane. Be sure to get up and walk every 1- 2 hours when traveling long distances. - Avoid strenuous activity for 2-4 days after surgery (running, jumping, lifting more than 10 lbs.) Diet and Fluid Intake: Eating a well balanced diet is important. If you were on a specific diet before your surgery, you should return to that diet. Otherwise, there are no diet restrictions after surgery. Do NOT drink alcoholic beverages while taking pain medications. Drink at least 8 glasses of fluid per day, preferably water. Bowel Management: Constipation sometimes occurs after surgery, especially when taking pain medication. Eating a well-balanced diet and maintaining a good fluid intake are often all that is necessary to return to you pre-surgical bowel regimen. It is important not to strain excessively when having a bowel movement for the first several weeks following your surgery. A stool softener such as Colace may be helpful. You can purchase stool softeners without a prescription at your local drug store. If a stool softener is not enough to relieve your constipation, you may try taking Milk of Magnesia. You may use over the counter medicine, such a Gas-X, if you experience gas pains after surgery. Pain Medications: Your doctor will prescribe the appropriate pain medication for you. Take these pills only as directed and only if you need them. If you are experiencing mild discomfort, you may take Tylenol or Ibuprofen. NEVER mix alcohol with prescription pain medications. Pain medication may make you drowsy. Do not take pain medication when doing any activity that requires coordination, such as driving. Infection: Report the following warning signs of infection to your doctor immediately: A temperature of 101 degrees or greater Increased redness, swelling or drainage at the incision site Sudden onset of increased pain or tenderness or warmth around the incision Foul odor from the incision site. Miscellaneous It is normal for you to have minor discomfort after your surgery. However, if there are any significant changes in your condition--such as shortness of breath, difficulty breathing, or pain or unevenswelling in your legs--please go to the Emergency Room. Return to Work: you may return to work in 24 hours Follow-up Appointments Follow-up appointments will be scheduled by our office. If you have any questions, please call . * Attachments The following attachments cannot be sent through Care Everywhere. * General Anesthesia Discharge Instructions (Honduran) documented in this [facility]06-05-2024 Attending History and physical note* Cristo Coyne MD - 09/16/2023 9:56 AM EDT Images from the original note were not included. H&P Update Patient's History and Physical from 09/15/23 was reviewed. Patient examined. There has been no change. Impression: gross hematuria Plan: : cp poss bx poss ureteroscopy : Electronically signed by Cristo Coyne MD 09/16/23 9:56 AM Source Note - Sherlyn Faria PA-C - 09/15/2023 1:00 PM EDT Comprehensive PreSurgical History and Physical ? Name: Sophie Hicks : 1965 (Age-57 y.o.) Date of Service: Pt seen/examined on 09/15/2023 Procedure Information Date/Time: 09/16/23 1030 Procedures: CYSTOSCOPY, RETROGRADE PYELOGRAM (Urethra) - 60 MIN POSSIBLE BILATERAL URETEROSCOPY (Bilateral: Urethra) Location: [address] Operating Room Surgeons: Cristo Coyne MD Chief Complaint: Abdominal pannus. Gross hematuria ASSESSMENT/PLAN: Patient is considered intermediate risk for this low/intermediate risk procedure/surgery noted above () with no reducible risk factors. Based on the above evaluation, the benefits of the planned procedure likely exceed the risks. The patient is medically optimized to proceed with the planned procedure without any further cardiopulmonary testing. 1) Abdominal pannus Managed per surgery 2) Gross hematuria Managed per urology - cysto scheduled tomorrow 3) HTN Typically controlled Compliant with meds. Taking bumex Follows with PCP Labs and EKG done BP Readings from Last 3 Encounters: 09/15/23 122/79 09/08/23 102/60 08/27/23 133/68 4) DEMI Resolved after bariatric surgery, no cpap now I would consider higher level of care (continuous pulse ox) with this patient due to DEMI and increased risks 5) COPD/Asthma Per patient, feels at baseline Using daily inhaler, rescue inhaler several times a week Continue inhalers day of surgery Labs, EKG done 6) CKD Labs done Follows with PCP/nephrology Close monitoring and management of fluid volume and electrolytes advised. Avoid nephrotoxic agents 7) CAD, mild S/p cardiac cath, neg stress in the past Denies stents Taking asa, statin Labs, EKG done 8) CVA Occurred in ~2020 or 2021 Denies residual Taking asa, statin Follows with PCP 9) Atrial Fibrillation, paroxysmal Taking asa Follows with pcp EKG and labs done 10) Anxiety / Depression Taking Wellbutrin, buspar, xanax prn Follows with PCP 11) GERD Stable. Currently taking PPI Avoidance of triggers encouraged 12) Hypothyroidism Currently taking synthroid Follows with PCP Visit Type: Pre-Admission Testing Visit Labs Ordered: NO - COMPLETE PRIOR TO PAT VISIT Sleep Referral Ordered: no cpap. Demi resolved with weight loss Total time spent (which include face to face and non face to face encounters) : 60 minutes Toxic drug monitoring/narrow therapeutic index drug monitoring : # Drug name : bumex # Route administered : po # Method of monitoring : bmp PAT Protocol referenced includes: 1. Anesthesia Lab Protocol Orders 2. Perioperative Cardiovascular Risk Assessment 3. Anesthesia Assessment 4. Pain Assessment and Acute Pain Service Consult (if appropriate) 5. Medical Clearance/Consult from Internal Medicine ([facility]) 6. Shower/Wash Order (for designated surgeries) 7. DEMI Screen and Sleep Clinic Referral (if appropriate) History Of Present Illness: 57 y.o. male who presents with chief complaint mentioned above. Per surgeon's note Pt c/o symptomatic abdominal pannus. Patient underwent bariatric surgery over 19 months ago. At that time, patient's BMI was near 50. After bariatric surgery, patient has had dramatic success with weight loss. Patient has maintained excellent protein intake, regular diet, and consistent exercise. Patient is lost the vast majority of his excess body weight and BMI has been between 35 and 37. Patient states his weight has been stable f or at least the last 10 months. Patient states that after approximately 6 months of weight loss he began having symptomatic skin issues. Patient has symptomatic abdominal pannus that overhangs his pubic tubercle, overhangs and partially buries his genitals, with symptomatic skin issues including rashes, irritation, and pulling onhis back. Patient states this interferes with his daily activity including ambulation and daily activity as well as urination and other bodily functions. Patient states despite regular and consistent diet and exercise the symptoms have worsened with weight loss and extra skin. Patient has attempted many conservative measures including meticulous hygiene, skin care, topical antifungals, compression garments/clothing. This has not resulted in improveme nt. pt also c/o return of gross hematuria status post cystoscopy with Dr. Coyne 08/10/2023 & numerous catheterizations during hospitalization 08/18/2023. In ED again 08/20 with hematuria. His urine cultures have been negative for growth & prior CT negative, along with cystoscopy negative for masses. Pt has seen the surgeon and elected for above procedure. DM was prior to bariatric surgery, stable now no meds Denies Hx of CHF, FL, DVT/PE Hx problems with anesthesia? - awareness under anesthesia during dental implant surgery Motion sickness sometimes upper and lower permanent implants Past Medical History: Past Medical History: No date: Abdominal pain No date: Atrial fibrillation (HCC) Comment: transient; resolved No date: Awareness under anesthesia No date: Back pain 01/29/2015: Benign essential HTN No date: Blood circulation, collateral No date: CAD (coronary artery disease) Comment: mild - dx on cath - neg stress No date: Cerebral artery occlusion with cerebral infarction (HCC) No date: Chronic kidney disease No date: COPD (chronic obstructive pulmonary disease) ([facility]) No date: COVID-19 Comment: 05/0309/25/2020: COVID-19 vaccine series completed Comment: Moderna 12/04/2020: COVID-19 vaccine series completed Comment: BOOSTER 12/25/2004: CS (cervical spondylosis) Comment: CERVICAL SPINE DJD No date: Difficulty sleeping No date: Dizziness No date: GERD (gastroesophageal reflux disease) 06/21/2013: History of colonic polyps Comment: repeat 2019 No date: Hyperlipidemia No date: Hypothyroidism 08/15/2014: Insomnia No date: Joint pain, hip No date: Joint pain, knee No date: Memory difficulties No date: Muscle weakness 09/30/2020: Peripheral polyneuropathy No date: Shortness of breath at rest No date: Sleep apnea Comment: resolved with weight loss No date: Snoring No date: SOBOE (shortness of breath on exertion) 03/19/2021: Type 2 diabetes mellitus ([facility]) Comment: resolved after weight loss Past Surgical History: Past Surgical History: No date: APPENDECTOMY 12/03/2021: BARIATRIC SURGERY Comment: Dr. Trevino 12/17/2013: CARDIAC CATHETERIZATION Comment: NORMAL CORONARY ARTERIES AND LVEF. No date: COLONOSCOPY 2020: COLONOSCOPY 10/26/2020: CYSTOSCOPY 11/19/2020: CYSTOSCOPY 03/02/2023: EGD (HISTORICAL) No date: NECK SURGERY Comment: Posterior cervical fusion No date: ROTATOR CUFF REPAIR; Bilateral 01/24/2021: UPPER GASTROINTESTINAL ENDOSCOPY Comment: Dr. Cabello Medications Prior to Admission: Current Outpatient Medications: Advair Diskus 250-50 MCG/ACT aerosol powder , INHALE 1 PUFF INTO THE LUNGS TWICE DAILY, Disp: 1 each, Rfl: 10 ALPRAZolam (Xanax) 1 MG tablet, Take 1 mg by mouth every 24 hours as needed., Disp: , Rfl: aspirin 81 MG EC tablet, 81 mg daily., Disp: , Rfl: atorvastatin (Lipitor) 80 MG tablet, Take 80 mg by mouth daily., Disp: , Rfl: baclofen (Lioresal) 10 MG tablet, Take 10 mg by mouth 2 times daily., Disp: , Rfl: bumetanide (Bumex) 1 MG tablet, Take 1 mg by mouth in the morning and 1 mg before bedtime., Disp: ,Rfl: buPROPion XL (Wellbutrin XL) 150 MG 24 hr tablet, Take 150 mg by mouth daily., Disp: , Rfl: busPIRone (Buspar) 10 MG tablet, Take 10 mg by mouth 2 times daily., Disp: , Rfl: calcium citrate 250 MG tablet, Take 2 tablets (500 mg) by mouth in the morning and 2 tablets (500 mg) at noon and 2 tablets (500 mg) before bedtime. Take 2 tablets by mouth three times daily.., Disp:180 tablet, Rfl: 3 cholestyramine (Questran) 4 g packet, Every 24 hours., Disp: , Rfl: Continuous Blood Gluc Sensor (FreeStyle Alexandra 2 Sensor) [facility] [place]ED; CHANGE SENSOR EVERY 14 DAYS, Disp: , Rfl: dicyclomine (Bentyl) 10 MG capsule, Take 10 mg by mouth in the morning and 10 mg at noon and 10 mg in the evening and 10 mg before bedtime., Disp: , Rfl: finasteride (Proscar) 5 MG tablet, Take 1 tablet (5 mg) by mouth daily. Do not crush, chew, or split., Disp: 90 tablet, Rfl: 3 fluticasone (Flonase) 50 MCG/ACT nasal spray, Every 24 hours., Disp: , Rfl: gabapentin (Neurontin) 300 MG capsule, Take 600 mg by mouth 3 times daily., Disp: , Rfl: levothyroxine (Synthroid, Levoxyl) 75 MCG tablet, , Disp: , Rfl: lidocaine (Uro-Jet) 2 % gel, Insert into the urethra as needed for mild pain (1- 3)., Disp: 5 mL, Rfl: 1 Multiple Vitamins-Minerals (MULTIVITAMIN ADULTS 50+ PO), Take by mouth., Disp: , Rfl: oxyCODONE-acetaminophen (Percocet) 5-325 MG tablet, Take 1 tablet by mouth 3 times daily., Disp: , Rfl: pantoprazole (ProtoNix) 40 MG EC tablet, take 1 tablet by mouth once daily, Disp: 120 tablet, Rfl: 0 sertraline (Zoloft) 50 MG tablet, Take 50 mg by mouth daily., Disp: , Rfl: tadalafil (Cialis) 5 MG tablet, Take 1 tablet (5 mg) by mouth daily., Disp: 30 tablet, Rfl: 11 tamsulosin (Flomax) 0.4 MG 24 hr capsule, Take 1 capsule (0.4 mg) by mouth daily., Disp: 90 capsule, Rfl: 3 tiZANidine (Zanaflex) 2 MG tablet, Take 2 mg by mouth 2 times daily as needed., Disp: , Rfl: traMADol ER (Ultram-ER) 300 MG 24 hr tablet, Take 300 mg by mouth 3 times daily., Disp: , Rfl: Ventolin HFA 108 (90 Base) MCG/ACT inhaler, Inhale 2 puffs every 6 hours as needed., Disp: , Rfl: zinc gluconate 50 MG tablet, Take 1 tablet by mouth daily., Disp: , Rfl: CHRONIC NARCOTIC USE: percocet from pcp Allergies: Iodinated contrast media and Nsaids If patient has opioid allergy, is it okay to take Acetaminophen: N/A Social History: TOBACCO: reports that he has never smoked. He has never used smokeless tobacco. ETOH: reports no history of alcohol use. Social History Substance and Sexual Activity Drug Use No Family History: Family History Problem Relation Name Age of Onset Osteoarthritis Mother Lung cancer Mother smoker Coronary artery disease Other REVIEW OF SYSTEMS: Review of Systems Constitutional: Negative for chills and fever. Respiratory: Negative for shortness of breath. Cardiovascular: Negative for chest pain. Pertinent positives as noted in the HPI. Physical Exam: Physical Exam Constitutional: General: He is awake. He is not in acute distress. Appearance: Normal appearance. HENT: Head: Normocephalic and atraumatic. Eyes: Extraocular Movements: Extraocular movements intact. Conjunctiva/sclera: Conjunctivae normal. Cardiovascular: Rate and Rhythm: Normal rate and regular rhythm. Heart sounds: Normal heart sounds. Pulmonary: Effort: Pulmonary effort is normal. Breath sounds: Normal breath sounds. Abdominal: Palpations: Abdomen is soft. Musculoskeletal: General: Normal range of motion. Cervical back: Normal range of motion. Skin: General: Skin is warm and dry. Neurological: General: No focal deficit present. Mental Status: He is alert and oriented to person, place, and time. Psychiatric: Mood and Affect: Mood normal. Behavior: Behavior normal. Behavior is cooperative. Vitals: Vitals Value Taken Time BP 122/79 09/15/23 1258 Temp 36.2 C (97.1 F) 09/15/23 1258 Pulse 77 09/15/23 1258 Resp 16 09/15/23 1258 SpO2 97 % 09/15/23 1258 BP 122/79 Pulse 77 Temp 36.2 C (97.1 F) (Temporal) Resp 16 Ht 1.854 m (6' 1) Wt 122 kg (268 lb) SpO2 97% BMI 35.36 kg/m Labs: Lab Results Component Value Date WBC 9.2 08/21/2023 HGB 14.0 08/21/2023 HCT 41.6 08/21/2023 MCV 88.3 08/21/2023 PLT 163 08/21/2023 Lab Results Component Value Date NA 138 08/21/2023 K 4.1 08/21/2023 CL 103 08/21/2023 CO2 24 08/21/2023 BUN 23 (H) 08/21/2023 CREATININE 1.83 (H) 08/21/2023 GLUCOSE 119 (H) 08/21/2023 CALCIUM 9.0 08/21/2023 PROT 7.0 08/21/2023 ALKPHOS 80 08/21/2023 AST 26 08/21/2023 ALT 17 08/21/2023 EGFR 42.0 (L) 08/21/2023 Lab Results Component Value Date HGBA1C 5.5 11/20/2021 HGBA1C 5.5 07/16/2021 HGBA1C 6.5 (A) 11/16/2020 Roderick's Simple Cardiac Risk Index: RODERICK'S SIMPLE CARDIAC RISK SCORE: 2 Interpretation: 0 Points Class I 0.5% 1 Point Class II 1.3% 2 Points Class III 3.6% 3+ Points Class IV 9.1% METS >4 METS (Able to climb a flight of stairs with no chest pain or shortness of breath): Yes goes slow Walk indoors, such as around the house (1.75 METs), Do light work around the house, such as dusting or washing dishes (2.70 METs), Take care of self, that is eating, dressing, bathing, using the toilet (2.75 METs), Do moderate work around the house such as vacuuming, sweeping floors, or carrying in groceries (3.50 METs), Do yardwork, such as raking leaves, weeding,or pushing a power mower (4.50 METs), Climb a flight of stairs or walk up a hill (5.50 METs) PAT Pain Score: 0 Postop Pain Management Plan (Pain consult ordered?): Pain consult not indicated at this time ? EKG: Done recently Encounter Date: 08/21/23 ECG 12 lead Result Value Heart Rate 95 QRSD Interval 87 QT Interval 351 QTC Interval 442 P [place] 26 QRS [place] 23 T Wave [place] 40 IN Interval 165 Impression Sinus rhythm Electronically Signed On 08-21-2023 21:51:55 EDT by Eduard Guan ECHO and EF: No components found for: LVEF, LVEFMODE 07/23/20 SUMMARY: 1. Left ventricle: Not well visualized. Systolic function is by the biplane method of disks. The estimated ejection fraction is 57%. Unable to assess LV diastolic function due to suboptimal technical data 2. Right ventricle: Not well visualized. Systolic function is grossly normal. 3. Atrial septum: Not well visualized. 4. Mitral valve: Not well visualized. Structurally normal valve. 5. Aortic valve: Not well visualized. 6. Tricuspid valve: Not well visualized. 7. Technically difficult study. Electronically signed by: Sherlyn Faria PA-C Date: 09/15/2023 at 3:06 PM [id number] History and physical note* Cristo Coyne MD - 09/16/2023 9:56 AM EDT Images from the original note were not included. H&P Update Patient's History and Physical from 09/15/23 was reviewed. Patient examined. There has been no change. Impression: gross hematuria Plan: : cp poss bx poss ureteroscopy : Electronically signed by Cristo Coyne MD 09/16/23 9:56 AM Source Note - Sherlyn Faria PA-C - 09/15/2023 1:00 PM EDT Comprehensive PreSurgical History and Physical ? Name: Sophie Hicks : 1965 (Age-57 y.o.) Date of Service: Pt seen/examined on 09/15/2023 Procedure Information Date/Time: 09/16/23 1030 Procedures: CYSTOSCOPY, RETROGRADE PYELOGRAM (Urethra) - 60 MIN POSSIBLE BILATERAL URETEROSCOPY (Bilateral: Urethra) Location: [address] Operating Room Surgeons: Cristo Coyne MD Chief Complaint: Abdominal pannus. Gross hematuria ASSESSMENT/PLAN: Patient is considered intermediate risk for this low/intermediate risk procedure/surgery noted above () with no reducible risk factors. Based on the above evaluation, the benefits of the planned procedure likely exceed the risks. The patient is medically optimized to proceed with the planned procedure without any further cardiopulmonary testing. 1) Abdominal pannus Managed per surgery 2) Gross hematuria Managed per urology - cysto scheduled tomorrow 3) HTN Typically controlled Compliant with meds. Taking bumex Follows with PCP Labs and EKG done BP Readings from Last 3 Encounters: 09/15/23 122/79 09/08/23 102/60 08/27/23 133/68 4) DEMI Resolved after bariatric surgery, no cpap now I would consider higher level of care (continuous pulse ox) with this patient due to DEMI and increased risks 5) COPD/Asthma Per patient, feels at baseline Using daily inhaler, rescue inhaler several times a week Continue inhalers day of surgery Labs, EKG done 6) CKD Labs done Follows with PCP/nephrology Close monitoring and management of fluid volume and electrolytes advised. Avoid nephrotoxic agents 7) CAD, mild S/p cardiac cath, neg stress in the past Denies stents Taking asa, statin Labs, EKG done 8) CVA Occurred in ~2020 or 2021 Denies residual Taking asa, statin Follows with PCP 9) Atrial Fibrillation, paroxysmal Taking asa Follows with pcp EKG and labs done 10) Anxiety / Depression Taking Wellbutrin, buspar, xanax prn Follows with PCP 11) GERD Stable. Currently taking PPI Avoidance of triggers encouraged 12) Hypothyroidism Currently taking synthroid Follows with PCP Visit Type: Pre-Admission Testing Visit Labs Ordered: NO - COMPLETE PRIOR TO PAT VISIT Sleep Referral Ordered: no cpap. Demi resolved with weight loss Total time spent (which include face to face and non face to face encounters) : 60 minutes Toxic drug monitoring/narrow therapeutic index drug monitoring : # Drug name : bumex # Route administered : po # Method of monitoring : bmp PAT Protocol referenced includes: 1. Anesthesia Lab Protocol Orders 2. Perioperative Cardiovascular Risk Assessment 3. Anesthesia Assessment 4. Pain Assessment and Acute Pain Service Consult (if appropriate) 5. Medical Clearance/Consult from Internal Medicine ([facility]) 6. Shower/Wash Order (for designated surgeries) 7. DEMI Screen and Sleep Clinic Referral (if appropriate) History Of Present Illness: 57 y.o. male who presents with chief complaint mentioned above. Per surgeon's note Pt c/o symptomatic abdominal pannus. Patient underwent bariatric surgery over 19 months ago. At that time, patient's BMI was near 50. After bariatric surgery, patient has had dramatic success with weight loss. Patient has maintained excellent protein intake, regular diet, and consistent exercise. Patient is lost the vast majority of his excess body weight and BMI has been between 35 and 37. Patient states his weight has been stable f or at least the last 10 months. Patient states that after approximately 6 months of weight loss he began having symptomatic skin issues. Patient has symptomatic abdominal pannus that overhangs his pubic tubercle, overhangs and partially buries his genitals, with symptomatic skin issues including rashes, irritation, and pulling onhis back. Patient states this interferes with his daily activity including ambulation and daily activity as well as urination and other bodily functions. Patient states despite regular and consistent diet and exercise the symptoms have worsened with weight loss and extra skin. Patient has attempted many conservative measures including meticulous hygiene, skin care, topical antifungals, compression garments/clothing. This has not resulted in improveme nt. pt also c/o return of gross hematuria status post cystoscopy with Dr. Coyne 08/10/2023 & numerous catheterizations during hospitalization 08/18/2023. In ED again 08/20 with hematuria. His urine cultures have been negative for growth & prior CT negative, along with cystoscopy negative for masses. Pt has seen the surgeon and elected for above procedure. DM was prior to bariatric surgery, stable now no meds Denies Hx of CHF, FL, DVT/PE Hx problems with anesthesia? - awareness under anesthesia during dental implant surgery Motion sickness sometimes upper and lower permanent implants Past Medical History: Past Medical History: No date: Abdominal pain No date: Atrial fibrillation (HCC) Comment: transient; resolved No date: Awareness under anesthesia No date: Back pain 01/29/2015: Benign essential HTN No date: Blood circulation, collateral No date: CAD (coronary artery disease) Comment: mild - dx on cath - neg stress No date: Cerebral artery occlusion with cerebral infarction (HCC) No date: Chronic kidney disease No date: COPD (chronic obstructive pulmonary disease) ([facility]) No date: COVID-19 Comment: 05/0309/25/2020: COVID-19 vaccine series completed Comment: Moderna 12/04/2020: COVID-19 vaccine series completed Comment: BOOSTER 12/25/2004: CS (cervical spondylosis) Comment: CERVICAL SPINE DJD No date: Difficulty sleeping No date: Dizziness No date: GERD (gastroesophageal reflux disease) 06/21/2013: History of colonic polyps Comment: repeat 2019 No date: Hyperlipidemia No date: Hypothyroidism 08/15/2014: Insomnia No date: Joint pain, hip No date: Joint pain, knee No date: Memory difficulties No date: Muscle weakness 09/30/2020: Peripheral polyneuropathy No date: Shortness of breath at rest No date: Sleep apnea Comment: resolved with weight loss No date: Snoring No date: SOBOE (shortness of breath on exertion) 03/19/2021: Type 2 diabetes mellitus (HCC) Comment: resolved after weight loss Past Surgical History: Past Surgical History: No date: APPENDECTOMY 12/03/2021: BARIATRIC SURGERY Comment: Dr. Trevino 12/17/2013: CARDIAC CATHETERIZATION Comment: NORMAL CORONARY ARTERIES AND LVEF. No date: COLONOSCOPY 2020: COLONOSCOPY 10/26/2020: CYSTOSCOPY 11/19/2020: CYSTOSCOPY 03/02/2023: EGD (HISTORICAL) No date: NECK SURGERY Comment: Posterior cervical fusion No date: ROTATOR CUFF REPAIR; Bilateral 01/24/2021: UPPER GASTROINTESTINAL ENDOSCOPY Comment: Dr. Cabello Medications Prior to Admission: Current Outpatient Medications: Advair Diskus 250-50 MCG/ACT aerosol powder , INHALE 1 PUFF INTO THE LUNGS TWICE DAILY, Disp: 1 each, Rfl: 10 ALPRAZolam (Xanax) 1 MG tablet, Take 1 mg by mouth every 24 hours as needed., Disp: , Rfl: aspirin 81 MG EC tablet, 81 mg daily., Disp: , Rfl: atorvastatin (Lipitor) 80 MG tablet, Take 80 mg by mouth daily., Disp: , Rfl: baclofen (Lioresal) 10 MG tablet, Take 10 mg by mouth 2 times daily., Disp: , Rfl: bumetanide (Bumex) 1 MG tablet, Take 1 mg by mouth in the morning and 1 mg before bedtime., Disp: ,Rfl: buPROPion XL (Wellbutrin XL) 150 MG 24 hr tablet, Take 150 mg by mouth daily., Disp: , Rfl: busPIRone (Buspar) 10 MG tablet, Take 10 mg by mouth 2 times daily., Disp: , Rfl: calcium citrate 250 MG tablet, Take 2 tablets (500 mg) by mouth in the morning and 2 tablets (500 mg) at noon and 2 tablets (500 mg) before bedtime. Take 2 tablets by mouth three times daily.., Disp:180 tablet, Rfl: 3 cholestyramine (Questran) 4 g packet, Every 24 hours., Disp: , Rfl: Continuous Blood Gluc Sensor (FreeStyle Alexandra 2 Sensor) [facility] [place]ED; CHANGE SENSOR EVERY 14 DAYS, Disp: , Rfl: dicyclomine (Bentyl) 10 MG capsule, Take 10 mg by mouth in the morning and 10 mg at noon and 10 mg in the evening and 10 mg before bedtime., Disp: , Rfl: finasteride (Proscar) 5 MG tablet, Take 1 tablet (5 mg) by mouth daily. Do not crush, chew, or split., Disp: 90 tablet, Rfl: 3 fluticasone (Flonase) 50 MCG/ACT nasal spray, Every 24 hours., Disp: , Rfl: gabapentin (Neurontin) 300 MG capsule, Take 600 mg by mouth 3 times daily., Disp: , Rfl: levothyroxine (Synthroid, Levoxyl) 75 MCG tablet, , Disp: , Rfl: lidocaine (Uro-Jet) 2 % gel, Insert into the urethra as needed for mild pain (1- 3)., Disp: 5 mL, Rfl: 1 Multiple Vitamins-Minerals (MULTIVITAMIN ADULTS 50+ PO), Take by mouth., Disp: , Rfl: oxyCODONE-acetaminophen (Percocet) 5-325 MG tablet, Take 1 tablet by mouth 3 times daily., Disp: , Rfl: pantoprazole (ProtoNix) 40 MG EC tablet, take 1 tablet by mouth once daily, Disp: 120 tablet, Rfl: 0 sertraline (Zoloft) 50 MG tablet, Take 50 mg by mouth daily., Disp: , Rfl: tadalafil (Cialis) 5 MG tablet, Take 1 tablet (5 mg) by mouth daily., Disp: 30 tablet, Rfl: 11 tamsulosin (Flomax) 0.4 MG 24 hr capsule, Take 1 capsule (0.4 mg) by mouth daily., Disp: 90 capsule, Rfl: 3 tiZANidine (Zanaflex) 2 MG tablet, Take 2 mg by mouth 2 times daily as needed., Disp: , Rfl: traMADol ER (Ultram-ER) 300 MG 24 hr tablet, Take 300 mg by mouth 3 times daily., Disp: , Rfl: Ventolin HFA 108 (90 Base) MCG/ACT inhaler, Inhale 2 puffs every 6 hours as needed., Disp: , Rfl: zinc gluconate 50 MG tablet, Take 1 tablet by mouth daily., Disp: , Rfl: CHRONIC NARCOTIC USE: percocet from pcp Allergies: Iodinated contrast media and Nsaids If patient has opioid allergy, is it okay to take Acetaminophen: N/A Social History: TOBACCO: reports that he has never smoked. He has never used smokeless tobacco. ETOH: reports no history of alcohol use. Social History Substance and Sexual Activity Drug Use No Family History: Family History Problem Relation Name Age of Onset Osteoarthritis Mother Lung cancer Mother smoker Coronary artery disease Other REVIEW OF SYSTEMS: Review of Systems Constitutional: Negative for chills and fever. Respiratory: Negative for shortness of breath. Cardiovascular: Negative for chest pain. Pertinent positives as noted in the HPI. Physical Exam: Physical Exam Constitutional: General: He is awake. He is not in acute distress. Appearance: Normal appearance. HENT: Head: Normocephalic and atraumatic. Eyes: Extraocular Movements: Extraocular movements intact. Conjunctiva/sclera: Conjunctivae normal. Cardiovascular: Rate and Rhythm: Normal rate and regular rhythm. Heart sounds: Normal heart sounds. Pulmonary: Effort: Pulmonary effort is normal. Breath sounds: Normal breath sounds. Abdominal: Palpations: Abdomen is soft. Musculoskeletal: General: Normal range of motion. Cervical back: Normal range of motion. Skin: General: Skin is warm and dry. Neurological: General: No focal deficit present. Mental Status: He is alert and oriented to person, place, and time. Psychiatric: Mood and Affect: Mood normal. Behavior: Behavior normal. Behavior is cooperative. Vitals: Vitals Value Taken Time BP 122/79 09/15/23 1258 Temp 36.2 C (97.1 F) 09/15/23 1258 Pulse 77 09/15/23 1258 Resp 16 09/15/23 1258 SpO2 97 % 09/15/23 1258 BP 122/79 Pulse 77 Temp 36.2 C (97.1 F) (Temporal) Resp 16 Ht 1.854 m (6' 1) Wt 122 kg (268 lb) SpO2 97% BMI 35.36 kg/m Labs: Lab Results Component Value Date WBC 9.2 08/21/2023 HGB 14.0 08/21/2023 HCT 41.6 08/21/2023 MCV 88.3 08/21/2023 PLT 163 08/21/2023 Lab Results Component Value Date NA 138 08/21/2023 K 4.1 08/21/2023 CL 103 08/21/2023 CO2 24 08/21/2023 BUN 23 (H) 08/21/2023 CREATININE 1.83 (H) 08/21/2023 GLUCOSE 119 (H) 08/21/2023 CALCIUM 9.0 08/21/2023 PROT 7.0 08/21/2023 ALKPHOS 80 08/21/2023 AST 26 08/21/2023 ALT 17 08/21/2023 EGFR 42.0 (L) 08/21/2023 Lab Results Component Value Date HGBA1C 5.5 11/20/2021 HGBA1C 5.5 07/16/2021 HGBA1C 6.5 (A) 11/16/2020 Roderick's Simple Cardiac Risk Index: RODERICK'S SIMPLE CARDIAC RISK SCORE: 2 Interpretation: 0 Points Class I 0.5% 1 Point Class II 1.3% 2 Points Class III 3.6% 3+ Points Class IV 9.1% METS >4 METS (Able to climb a flight of stairs with no chest pain or shortness of breath): Yes goes slow Walk indoors, such as around the house (1.75 METs), Do light work around the house, such as dusting or washing dishes (2.70 METs), Take care of self, that is eating, dressing, bathing, using the toilet (2.75 METs), Do moderate work around the house such as vacuuming, sweeping floors, or carrying in groceries (3.50 METs), Do yardwork, such as raking leaves, weeding,or pushing a power mower (4.50 METs), Climb a flight of stairs or walk up a hill (5.50 METs) PAT Pain Score: 0 Postop Pain Management Plan (Pain consult ordered?): Pain consult not indicated at this time ? EKG: Done recently Encounter Date: 08/21/23 ECG 12 lead Result Value Heart Rate 95 QRSD Interval 87 QT Interval 351 QTC Interval 442 P [place] 26 QRS [place] 23 T Wave [place] 40 IN Interval 165 Impression Sinus rhythm Electronically Signed On 08-21-2023 21:51:55 EDT by Eduard Guan ECHO and EF: No components found for: LVEF, LVEFMODE 07/23/20 SUMMARY: 1. Left ventricle: Not well visualized. Systolic function is by the biplane method of disks. The estimated ejection fraction is 57%. Unable to assess LV diastolic function due to suboptimal technical data 2. Right ventricle: Not well visualized. Systolic function is grossly normal. 3. Atrial septum: Not well visualized. 4. Mitral valve: Not well visualized. Structurally normal valve. 5. Aortic valve: Not well visualized. 6. Tricuspid valve: Not well visualized. 7. Technically difficult study. Electronically signed by: Sherlyn Faria PA-C Date: 09/15/2023 at 3:06 PM documented in this [facility]06-04-2024 Anesthesiology Preoperative evaluation and management note* Anesthesia Preprocedure Evaluation - Nicola Matty Le, PLANT OPERATOR CONTROL ROOM OPERATOR - FURNACE OPERATOR AND TENDER - 09/15/2023 1:29 PM EDT Patient: Sophie Hicks Procedure Information Date/Time: 09/16/23 1030 Procedures: CYSTOSCOPY, RETROGRADE PYELOGRAM (Urethra) - 60 MIN POSSIBLE BILATERAL URETEROSCOPY (Bilateral: Urethra) Location: [address] Operating Room Surgeons: Cristo Coyne MD Relevant Problems Anesthesia (+) Awareness under anesthesia (+) History of colonic polyps (+) History of snoring (+) Hx: nephrotic syndrome (+) DEMI (obstructive sleep apnea) (+) DEMI on CPAP (-) Delayed emergence from anesthesia (-) Difficult intravenous access (-) Family history of malignant hyperthermia (-) Malignant hyperthermia (-) PONV (postoperative nausea and vomiting) Cardio (+) Benign essential HTN (+) CAD (coronary artery disease) (+) CHF (congestive heart failure) (HCC) (+) Hyperlipidemia (+) Occlusion and stenosis of bilateral carotid arteries Endo (+) Type 2 diabetes mellitus (HCC) GI (+) GERD (gastroesophageal reflux disease) /Renal (+) Diffuse membranous glomerulonephritis (+) Nephrotic syndrome (+) Nephrotic syndrome with membranous glomerulonephritis Neuro/Psych (+) TIA (transient ischemic attack) Pulmonary (+) Mucopurulent chronic bronchitis (HCC) (+) DEMI (obstructive sleep apnea) (+) DEMI on CPAP Past Medical History: Past Medical History: No date: Abdominal pain No date: Atrial fibrillation (HCC) Comment: transient; resolved No date: Awareness under anesthesia No date: Back pain 01/29/2015: Benign essential HTN No date: Blood circulation, collateral No date: CAD (coronary artery disease) Comment: mild - dx on cath - neg stress No date: Cerebral artery occlusion with cerebral infarction (HCC) No date: Chronic kidney disease No date: COPD (chronic obstructive pulmonary disease) ([facility]) No date: COVID-19 Comment: 05/0309/25/2020: COVID-19 vaccine series completed Comment: Moderna 12/04/2020: COVID-19 vaccine series completed Comment: BOOSTER 12/25/2004: CS (cervical spondylosis) Comment: CERVICAL SPINE DJD No date: Difficulty sleeping No date: Dizziness No date: GERD (gastroesophageal reflux disease) 06/21/2013: History of colonic polyps Comment: repeat 2019 No date: Hyperlipidemia No date: Hypothyroidism 08/15/2014: Insomnia No date: Joint pain, hip No date: Joint pain, knee No date: Memory difficulties No date: Muscle weakness 09/30/2020: Peripheral polyneuropathy No date: Shortness of breath at rest No date: Sleep apnea Comment: resolved with weight loss No date: Snoring No date: SOBOE (shortness of breath on exertion) 03/19/2021: Type 2 diabetes mellitus (HCC) Comment: resolved after weight loss Past Surgical History: Past Surgical History: No date: APPENDECTOMY 12/03/2021: BARIATRIC SURGERY Comment: Dr. Trevino 12/17/2013: CARDIAC CATHETERIZATION Comment: NORMAL CORONARY ARTERIES AND LVEF. No date: COLONOSCOPY 2020: COLONOSCOPY 10/26/2020: CYSTOSCOPY 11/19/2020: CYSTOSCOPY 03/02/2023: EGD (HISTORICAL) No date: NECK SURGERY Comment: Posterior cervical fusion No date: ROTATOR CUFF REPAIR; Bilateral 01/24/2021: UPPER GASTROINTESTINAL ENDOSCOPY Comment: Dr. Cabello Social History: TOBACCO: reports that he has never smoked. He has never used smokeless tobacco. ETOH: reports no history of alcohol use. Social History Substance and Sexual Activity Drug Use No Family History: Family History Problem Relation Name Age of Onset Osteoarthritis Mother Lung cancer Mother smoker Coronary artery disease Other Screening: unknown Clinical information reviewed: Tobacco Allergies Meds Med Hx Surg Hx Fam Hx Soc Hx Physical Exam Airway Mallampati: II TM distance: >3 FB Neck ROM: full Mouth Open: normal Cardiovascular Dental Comments: upper and lower permanent implants dentition normal Pulmonary Abdominal Anesthesia Plan patient is NPO appropriate Any family history or previous problems with anesthesia no ASA 3 general Any family history or previous problems with anesthesia no The patient is not a current smoker. Anesthetic plan and risks discussed with patient. DEMI Screening STOP-Bang Total Score: 4 Labs: Lab Results Component Value Date WBC 9.2 08/21/2023 HGB 14.0 08/21/2023 HCT 41.6 08/21/2023 MCV 88.3 08/21/2023 PLT 163 08/21/2023 Lab Results Component Value Date NA 138 08/21/2023 K 4.1 08/21/2023 CL 103 08/21/2023 CO2 24 08/21/2023 BUN 23 (H) 08/21/2023 CREATININE 1.83 (H) 08/21/2023 GLUCOSE 119 (H) 08/21/2023 CALCIUM 9.0 08/21/2023 PROT 7.0 08/21/2023 ALKPHOS 80 08/21/2023 AST 26 08/21/2023 ALT 17 08/21/2023 EGFR 42.0 (L) 08/21/2023 No echocardiogram results found for the past 14 days 08/21/23 ECG 12-LEAD 08/21/2023 9:51 PM (Final) Impression Sinus rhythm Electronically Signed On 08-21-2023 21:51:55 EDT by Eduard Guan Signed by: Eduard Guan MD on 08/21/2023 9:51 PM [id number] Telephone encounter Note* Telephone Encounter - Evy Perez - 09/11/2023 11:57 AM EDT Pt scheduled for surgery with Dr. Coyne on 09/16/23. [facility] [id number] Miscellaneous Notes* Telephone Encounter - Evy Perez - 09/11/2023 11:57 AM EDT Pt scheduled for surgery with Dr. Coyne on 09/16/23. * Telephone Encounter - GREG Friedman CNP - 08/24/2023 12:39 PM EDT Patient should not have VT until hematuria clears. Ok for OV but should be in extended slot if possible. * Telephone Encounter - Arlin Paula - 08/24/2023 11:56 AM EDT Pt called office to see about sooner available appt. I did advise pt of above message. Pt does not want to go back to ED states they will flush, re-cath, and send him home like the past two visits. Ischeduled sooner appt with [facility] 08/27/23. Pt does have cath in place so I am unsure if this appt should be a VT or OV. I did discuss VT with pt but he was hesitant about the possibility of having cath taken out while still having hematuria. Please advise if appt is okay with [facility] and if this appt should be VT or office visit. * Telephone Encounter - GREG Friedman CNP - 08/24/2023 10:20 AM EDT If patient is urinating dark red urine again or having difficulty voiding patient should be evaluated in the ED. Prefer [facility] ED. If hematuria is intermittent or clears with fluid intake then he can keep scheduled appt with Dr. Coyne. * Telephone Encounter - Evy Perez - 08/24/2023 10:14 AM EDT Patient called in to make a follow up appt from his last 2 ED visits for gross hematuria. Pt stateshe is urinating straight blood and was told to be seen natasha. He also states that Dr. Coyne was consulted while he was there and was told that he would be scheduled first available this week. Please advise. documented in this [facility]05-28-2024 Telephone encounter Note* Telephone Encounter - Lisandro Mojica - 09/08/2023 11:31 AM EDT Patient called office confused about appointments. I reminded him of our conversation earlier todayand went over all surgery related appointment dates and times. He voiced understanding. [facility] [id number] Miscellaneous Notes* Telephone Encounter - Lisandro Mojica - 09/08/2023 11:31 AM EDT Patient called office confused about appointments. I reminded him of our conversation earlier todayand went over all surgery related appointment dates and times. He voiced understanding. * Telephone Encounter - Lisandro Mojica - 09/08/2023 9:25 AM EDT Patient returned call. Scheduled for 09/23/2023 at 9:00am at [facility]. * Telephone Encounter - Lisandro Mojica - 09/08/2023 9:20 AM EDT Called [employer] to get information on appeal. [employer] stated that prior authorization #[id number] was approved. Called patient to schedule surgery. Lvm to call our office to schedule surgery. * Telephone Encounter - Lisandro Mojica - 08/11/2023 9:14 AM EDT Received prior authorization denial. Scanned into chart. Faxed an appeal to CMS. * Telephone Encounter - Lisandro Mojica - 08/10/2023 10:55 AM EDT Patient called into office letting our office know he received a denial by mail. * Telephone Encounter - Lisandro Mojica - 08/05/2023 9:14 AM EDT Patient called into office wanting to schedule surgery. Informed patient we are still waiting for adetermination from insurance. He voiced understanding. * Telephone Encounter - Lisandro Mojica - 06/24/2023 9:27 AM EDT Case# [id number] Procedure: Panniculectomy Sx Date: 09/23/2023 9:00 am Time: 3.5 hrs Location: [facility] Anesthesia: General CPT: 46680 ICD-10: E65 Special Equipment: N/A PAT: [facility] 09/16/2023 2:30 pm Faxed prior authorization request to [facility]. Confirmation fax received. Authorization # [id number] approved and scanned into chart. Spoke with patient to schedule. Went over surgical details and sent Mychart. documented in this encounterSParkview [id number] Telephone encounter Note* Telephone Encounter - Lisandro Mojica - 09/08/2023 9:25 AM EDT Patient returned call. Scheduled for 09/23/2023 at 9:00am at [facility]. [facility] [id number] Telephone encounter Note* Telephone Encounter - Lisandro Mojica - 09/08/2023 9:20 AM EDT Called [employer] to get information on appeal. [employer] stated that prior authorization #[id number] was approved. Called patient to schedule surgery. Lvm to call our office to schedule surgery. [facility] [id number] History of Present illness Narrative* GREG Jackson NP - 09/08/2023 9:00 AM EDT Images from the original note were not included. DIANE Jackson 09/08/2023 at 9:37 AM Urology Office Visit [facility] [address] [facility] [address] Dept: [phone] Dept Loc: [phone] PATIENT NAME: Sophie Hicks DATE OF : 1965 REFERRING PROVIDER: No ref. provider found PCP: WILIAM FERNANDEZ MD TODAY'S DATE: 09/08/2023 CHIEF COMPLAINT: Chief Complaint Patient presents with voiding trial Pt had blood clots Impression/Plan: Diagnoses and all orders for this visit: Benign prostatic hyperplasia with post-void dribbling - Remove indwelling urinary catheter History of gross hematuria Patient able to void with conte catheter removal today. Instructed it is reasonable to continue voiding trial at home this morning as he was able to void. Return by 2:30 PM if unable to urinate or hematuria returns. Continue with Tamsulosin 0.4 mg nightly. Continue Finasteride 5 mg daily. Consider cystoscopy & retrograde pyelogram if hematuria returns & persists. The patient was instructed to push fluids for the next few hours. If unable to urinate, should return to the office by 3pm for evaluation. If the patient is unable to urinate after the office is closed, will need to go to the nearest ER. The patient verbalizes understanding. Follow up in 6 weeks to reassess postvoid residual. Follow Up: Follow up in about 6 weeks (around 10/20/2023) for PVR check hx of hematuria & difficulty urinating . Mariana Ball, GREG, FERRYBOAT OPERATOR [facility] Urology Subjective: Mr. Hicks is a 57 y.o. male who presents to the office regarding difficulty urinating. Additional urologic history of gross hematuria. Numerous hospitalizations & ED visits due to gross hematuria, with most recent 08/21/2023 and advised to maintain catheter for 2 weeks. Records have been reviewed. HPI Patient presents today for conte removal & trial of voiding. He has been fair, he has only seen scant small blood clots/urinary sediment several instances sincelast office visit. Denies any more gross hematuria. Denies any catheter malfunction, and urine is mostly clear yellow in color. Urethral pain resolved now. He did start Finasteride 5 mg daily, denies any adverse effects. He continues Tamsulosin 0.4 mg nightly. Review of Systems: All pertinent positives and negatives per HPI as stated above. Social History Social History Tobacco Use Smoking status: Never Smokeless tobacco: Never Substance Use Topics Alcohol use: Never Drug use: No Past Medical History: Past Medical History: Diagnosis Date Abdominal pain Atrial fibrillation (HCC) Back pain Benign essential HTN 01/29/2015 Blood circulation, collateral CAD (coronary artery disease) mild - dx on cath - neg stress Cerebral artery occlusion with cerebral infarction (HCC) Chronic kidney disease COPD (chronic obstructive pulmonary disease) (HCC) COVID-19 05/03 COVID-19 vaccine series completed 09/25/2020 Moderna COVID-19 vaccine series completed 12/04/2020 BOOSTER CS (cervical spondylosis) 12/25/2004 CERVICAL SPINE DJD Difficulty sleeping Dizziness GERD (gastroesophageal reflux disease) History of colonic polyps 06/21/2013 repeat 2019 Hyperlipidemia Insomnia 08/15/2014 Joint pain, hip Joint pain, knee Memory difficulties Muscle weakness Peripheral polyneuropathy 09/30/2020 Shortness of breath at rest Sleep apnea Snoring SOBOE (shortness of breath on exertion) Type 2 diabetes mellitus (HCC) 03/19/2021 Past Surgical History: Past Surgical History: Procedure Laterality Date APPENDECTOMY BARIATRIC SURGERY 12/03/2021 Dr. Trevino CARDIAC CATHETERIZATION 12/17/2013 NORMAL CORONARY ARTERIES AND LVEF. COLONOSCOPY COLONOSCOPY 2020 CYSTOSCOPY 10/26/2020 CYSTOSCOPY 11/19/2020 EGD (HISTORICAL) 03/02/2023 NECK SURGERY Posterior cervical fusion ROTATOR CUFF REPAIR Bilateral UPPER GASTROINTESTINAL ENDOSCOPY 01/24/2021 Dr. Cabello Medications Current Outpatient Medications Medication Instructions Advair Diskus 250-50 MCG/ACT aerosol powder INHALE 1 PUFF INTO THE LUNGS TWICE DAILY ALPRAZolam (XANAX) 1 mg, Oral, Nightly PRN aspirin 81 mg, Daily atorvastatin (LIPITOR) 80 mg, Oral, Daily baclofen (LIORESAL) 10 mg, Oral, 2 times daily bumetanide (BUMEX) 1 mg, Oral, 2 times daily buPROPion XL (WELLBUTRIN XL) 150 mg, Oral, Daily busPIRone (BUSPAR) 10 mg, Oral, 2 times daily calcium citrate 500 mg, Oral, 3 times daily, Take 2 tablets by mouth three times daily. cholestyramine (Questran) 4 g packet Every 24 hours Continuous Blood Gluc Sensor (NuFlick Alexandra 2 Sensor) [facility] USE DIRECTED; CHANGE SENSOR EVERY 14 DAYS dicyclomine (BENTYL) 10 mg, Oral, 4 times daily finasteride (PROSCAR) 5 mg, Oral, Daily, Do not crush, chew, or split. fluticasone (Flonase) 50 MCG/ACT nasal spray Every 24 hours gabapentin (NEURONTIN) 600 mg, Oral, 3 times daily levothyroxine (Synthroid, Levoxyl) 75 MCG tablet lidocaine (Uro-Jet) 2 % gel Urethral, PRN Multiple Vitamins-Minerals (MULTIVITAMIN ADULTS 50+ PO) Oral pantoprazole (PROTONIX) 40 mg, Oral, Daily sertraline (ZOLOFT) 50 mg, Oral, Daily tadalafil (CIALIS) 5 mg, Oral, Daily tamsulosin (FLOMAX) 0.4 mg, Oral, Daily tiZANidine (ZANAFLEX) 2 mg, Oral, 2 times daily PRN traMADol ER (ULTRAM-ER) 300 mg, Oral, 3 times daily Ventolin HFA 108 (90 Base) MCG/ACT inhaler 2 puffs, Inhalation, Every 6 hours PRN zinc gluconate 50 MG tablet 1 tablet, Oral, Daily Vitals: BP 102/60 Pulse 86 Ht 6' 1 (1.854 m) Wt 260 lb (118 kg) BMI 34.30 kg/m Physical Exam Vitals and nursing note reviewed. Constitutional: Appearance: Normal appearance. Abdominal: General: There is no distension. Palpations: There is no mass. Tenderness: There is no abdominal tenderness. There is no right CVA tenderness or left CVA tenderness. Neurological: Mental Status: He is alert. Labs: HEMOGLOBIN Date Value Ref Range Status 03/22/2022 14.1 13.2 - 17.1 g/dL Final Hemoglobin Date Value Ref Range Status 08/21/2023 14.0 13.0 - 18.0 g/dL Final 08/20/2023 13.3 13.0 - 18.0 g/dL Final 08/19/2023 13.2 13.0 - 18.0 g/dL Final HEMATOCRIT Date Value Ref Range Status 03/22/2022 43.0 38.5 - 50.0 % Final Hematocrit Date Value Ref Range Status 08/21/2023 41.6 40.0 - 52.0 % Final 08/20/2023 39.9 (L) 40.0 - 52.0 % Final 08/19/2023 39.5 (L) 40.0 - 52.0 % Final PSA Total Date Value Ref Range Status 08/09/2020 2.065 <4.000 ng/mL Final Comment: Testing performed on the iTracss 5600 using an immunometric methodology. Results obtained by different methods should not be used interchangeably. Lab Results Component Value Date COLORU Yellow 08/21/2023 CLARITYU Turbid (A) 08/21/2023 GLUCOSEUR neg 08/08/2020 BILIRUBINUR Negative 12/17/2021 KETONESU Negative 08/21/2023 SPECGRAV >=1.030 08/08/2020 PHUR 7.0 08/08/2020 PROTUR 50 (A) 08/21/2023 UROBILINOGEN Normal 08/21/2023 LEUKOCYTESUR Negative 12/17/2021 NITRITE neg 08/08/2020 Radiology Review: ECG 12 lead Sinus rhythm Electronically Signed On 08-21-2023 21:51:55 EDT by Eduard Guan === 08/18/23 === CT ABDOMEN PELVIS WO IV CONTRAST - Impression - No acute process. Chronic findings as above. Report Dictated on Electronically Signed By: Rohan Michael MD Electronically Signed Date/Time: 08/18/2023 4:17 AM EDT Procedure: Bladder filled with 275 mL sterile water and Conte removed. The patient was able voided with a goodurinary stream, approx 200 mL. The patient tolerated the procedure well. An electronic signature was used to authenticate this note. Please note that portions of this chart were dictated using [facility] voice recognition software. It is possible that typos and/or omissions and/or substitutions of words and/or phrases may exist, which may alter the intended meaning of the dictating provider. * Cyn Allen MA - 09/08/2023 9:00 AM EDT Pt presents for Voiding Trial Instilled 275CC Sterile Water into Urinary Bladder Removed 16Fr catheter after deflating 10cc balloon Pt was able to void 200 cc immediately 275 Pt tolerated the conte coming out. Remind pt to continue to Kegel exercise. documented in this [facility]05-28-2024 Instructions* Patient Instructions* GREG Jackson NP - 09/08/2023 9:00 AM EDT The patient was instructed to push fluids for the next few hours. If unable to urinate, should return to the office by 3pm for evaluation. If the patient is unable to urinate after the office is closed, will need to go to the nearest ER. The patient verbalizes understanding. documented in this [facility]05-16-2024 History of Present illness Narrative* GREG Jackson NP - 08/27/2023 11:40 AM EDT Images from the original note were not included. DIANE Jackson 08/27/2023 at 11:57 AM Urology Office Visit [facility] [address] [address] Dept: [phone] Dept Loc: [phone] PATIENT NAME: Sophie Hicks DATE OF : 1965 REFERRING PROVIDER: Eduard Guan MD PCP: WILIAM FERNANDEZ MD TODAY'S DATE: 08/27/2023 CHIEF COMPLAINT: Chief Complaint Patient presents with ER Follow-up Patient has conte catheter placed from ER due to hematuria. Last ER visit 08/20 Urine straw colored today Impression/Plan: Diagnosis Plan 1. Gross hematuria [facility] finasteride (Proscar) 5 MG tablet 2. Urethral pain lidocaine (Uro-Jet) 2 % gel 3. Benign prostatic hyperplasia with post-void dribbling Return of gross hematuria status post cystoscopy with Dr. Coyne 08/10/2023 & numerous catheterizations during hospitalization 08/18/2023. Reviewed with the patient his urine cultures have been negative for growth & prior CT negative,along with cystoscopy negative for masses. It is likely his bleeding his prostate related as cystoscopy revealed bilobar BPH. Maintain current indwelling conte catheter, recommend voiding trial in 2 weeks. Start Finasteride 5 mg daily. Start as needed Uro jet for urethral pain. Continue Tamsulosin 0.4 mg nightly. Continue good hydration. The patient was instructed to call the office or go to the nearest ER if worsening symptoms such asfever > 101F, inability to urinate, intractable nausea or vomiting, or uncontrolled pain. The patient verbalizes understanding. Follow up in 2 weeks for VT. Should he continue to bleed recommend C&P. Follow Up: Follow up in 2 weeks (on 09/10/2023) for Voiding Trial . Mariana Ball, GREG- FERRYBOAT OPERATOR [facility] Urology HPI Mr. Hicks is a 57 y.o. male who presents to the office regarding gross hematuria. Records have been reviewed. Presents today for ED follow up, previously presented to ED on 08/24/2023 due to return of hematuria. Conte catheter placed, urine culture without growth. Previously seen at [facility] during hospitalization for same complaint, however he did pass in patient VT. Upon return to the emergency department 3 days ago reports urine fluctuating between bright & dark without evidence of clots, he felt some difficulty emptying his bladder, and some suprapubic pain/distention. Did not experiencing fever/chills, flank pain, or dysuria. He was initiated on Cefpodoxime. At this time he has conte catheter, and it is draining clear yellow urine. No hematuria since the ED. No catheter malfunction. He does have urethral pain. He is currently on Tamsulosin. Review of Systems: All pertinent positives and negatives per HPI as stated above. Social History Social History Tobacco Use Smoking status: Never Smokeless tobacco: Never Substance Use Topics Alcohol use: Never Drug use: No Past Medical History: Past Medical History: Diagnosis Date Abdominal pain Atrial fibrillation (HCC) Back pain Benign essential HTN 01/29/2015 Blood circulation, collateral CAD (coronary artery disease) mild - dx on cath - neg stress Cerebral artery occlusion with cerebral infarction (HCC) Chronic kidney disease COPD (chronic obstructive pulmonary disease) (HCC) COVID-19 05/03 COVID-19 vaccine series completed 09/25/2020 Moderna COVID-19 vaccine series completed 12/04/2020 BOOSTER CS (cervical spondylosis) 12/25/2004 CERVICAL SPINE DJD Difficulty sleeping Dizziness GERD (gastroesophageal reflux disease) History of colonic polyps 06/21/2013 repeat 2019 Hyperlipidemia Insomnia 08/15/2014 Joint pain, hip Joint pain, knee Memory difficulties Muscle weakness Peripheral polyneuropathy 09/30/2020 Shortness of breath at rest Sleep apnea Snoring SOBOE (shortness of breath on exertion) Type 2 diabetes mellitus (HCC) 03/19/2021 Past Surgical History: Past Surgical History: Procedure Laterality Date APPENDECTOMY BARIATRIC SURGERY 12/03/2021 Dr. Trevino CARDIAC CATHETERIZATION 12/17/2013 NORMAL CORONARY ARTERIES AND LVEF. COLONOSCOPY COLONOSCOPY 2020 CYSTOSCOPY 10/26/2020 CYSTOSCOPY 11/19/2020 EGD (HISTORICAL) 03/02/2023 NECK SURGERY Posterior cervical fusion ROTATOR CUFF REPAIR Bilateral UPPER GASTROINTESTINAL ENDOSCOPY 01/24/2021 Dr. Cabello Medications Current Outpatient Medications Medication Instructions acetaminophen (TYLENOL) 650 mg, Oral, Every 6 hours PRN Advair Diskus 250-50 MCG/ACT aerosol powder INHALE 1 PUFF INTO THE LUNGS TWICE DAILY ALPRAZolam (XANAX) 1 mg, Oral, Nightly PRN aspirin 81 mg, Daily atorvastatin (LIPITOR) 80 mg, Oral, Daily baclofen (LIORESAL) 10 mg, Oral, 2 times daily bumetanide (BUMEX) 1 mg, Oral, 2 times daily buPROPion XL (WELLBUTRIN XL) 150 mg, Oral, Daily busPIRone (BUSPAR) 10 mg, Oral, 2 times daily calcium citrate 500 mg, Oral, 3 times daily, Take 2 tablets by mouth three times daily. cefpodoxime (VANTIN) 200 mg, Oral, 2 times daily cholestyramine (Questran) 4 g packet Every 24 hours Continuous Blood Gluc Sensor (FreeStyle Alexandra 2 Sensor) [facility] [place] DIRECTED; CHANGE SENSOR EVERY 14 DAYS dicyclomine (BENTYL) 10 mg, Oral, 4 times daily finasteride (PROSCAR) 5 mg, Oral, Daily, Do not crush, chew, or split. fluticasone (Flonase) 50 MCG/ACT nasal spray Every 24 hours gabapentin (NEURONTIN) 600 mg, Oral, 3 times daily levothyroxine (Synthroid, Levoxyl) 75 MCG tablet lidocaine (Uro-Jet) 2 % gel Urethral, PRN Multiple Vitamins-Minerals (MULTIVITAMIN ADULTS 50+ PO) Oral pantoprazole (PROTONIX) 40 mg, Oral, Daily sertraline (ZOLOFT) 50 mg, Oral, Daily tadalafil (CIALIS) 5 mg, Oral, Daily tamsulosin (FLOMAX) 0.4 mg, Oral, Daily tiZANidine (ZANAFLEX) 2 mg, Oral, 2 times daily PRN traMADol ER (ULTRAM-ER) 300 mg, Oral, 3 times daily Ventolin HFA 108 (90 Base) MCG/ACT inhaler 2 puffs, Inhalation, Every 6 hours PRN zinc gluconate 50 MG tablet 1 tablet, Oral, Daily Vitals: BP 133/68 Pulse 78 Ht 6' 1 (1.854 m) Wt 260 lb (118 kg) BMI 34.30 kg/m Physical Exam Vitals and nursing note reviewed. Constitutional: Appearance: Normal appearance. Abdominal: General: There is no distension. Palpations: There is no mass. Tenderness: There is no abdominal tenderness. There is no right CVA tenderness or left CVA tenderness. Genitourinary: Comments: #16 fr coude catheter draining eagle colored urine Neurological: Mental Status: He is alert. Labs: CBC: Lab Results Component Value Date WBC 9.2 08/21/2023 HGB 14.0 08/21/2023 HCT 41.6 08/21/2023 MCV 88.3 08/21/2023 PLT 163 08/21/2023 CMP: Lab Results Component Value Date NA 138 08/21/2023 K 4.1 08/21/2023 CL 103 08/21/2023 CO2 24 08/21/2023 BUN 23 (H) 08/21/2023 CREATININE 1.83 (H) 08/21/2023 GLUCOSE 119 (H) 08/21/2023 ALT 17 08/21/2023 AST 26 08/21/2023 ALKPHOS 80 08/21/2023 Testosterone: No results found for: TESTOSTERONE PSA: Lab Results Component Value Date PSA 2.065 08/09/2020 Hemoglobin A1C: Lab Results Component Value Date HGBA1C 5.5 11/20/2021 URINALYSIS: Lab Results Component Value Date COLORU Yellow 08/21/2023 CLARITYU Turbid (A) 08/21/2023 GLUCOSEUR neg 08/08/2020 BILIRUBINUR Negative 12/17/2021 KETONESU Negative 08/21/2023 SPECGRAV >=1.030 08/08/2020 RBCUR trace-intact 08/08/2020 PHUR 7.0 08/08/2020 PROTUR 50 (A) 08/21/2023 UROBILINOGEN Normal 08/21/2023 LEUKOCYTESUR Negative 12/17/2021 NITRITE neg 08/08/2020 Radiology Review: ECG 12 lead Sinus rhythm Electronically Signed On 08-21-2023 21:51:55 EDT by Eduard Guan Procedure: N/a An electronic signature was used to authenticate this note. Please note that portions of this chart were dictated using [facility] voice recognition software. It is possible that typos and/or omissions and/or substitutions of words and/or phrases may exist, which may alter the intended meaning of the dictating provider. documented in this [facility]05-13-2024 Telephone encounter Note* Telephone Encounter - GREG Friedman CNP - 08/24/2023 12:39 PM EDT Patient should not have VT until hematuria clears. Ok for OV but should be in extended slot if possible. [facility] [employer] Phone: [phone] 938-359405-13-2024 Telephone encounter Note* Telephone Encounter - Arlin Bari - 08/24/2023 11:56 AM EDT Pt called office to see about sooner available appt. I did advise pt of above message. Pt does not want to go back to ED states they will flush, re-cath, and send him home like the past two visits. Ischeduled sooner appt with [facility] 08/27/23. Pt does have cath in place so I am unsure if this appt should be a VT or OV. I did discuss VT with pt but he was hesitant about the possibility of having cath taken out while still having hematuria. Please advise if appt is okay with [facility] and if this appt should be [place] or office visit. [id number] Telephone encounter Note* Telephone Encounter - Sola Jamil - 08/24/2023 11:09 AM EDT Called and left message to schedule [id number] Miscellaneous Notes* Telephone Encounter - Sola Jamil - 08/24/2023 11:09 AM EDT Called and left message to schedule * Telephone Encounter - Sherlyn Nix - 08/21/2023 6:03 PM EDT Name of Caller: Sophie Contact Reason for Appointment: Patient stated he sees Dr. Victoria. Patient requesting to schedule an appointment with Dr. Victoria stating that his legs have been giving out on him. Please call patient to advise. Office Name: Neurosurgery Medication Refills need, if any: N/A Medication Name: N/A documented in this encounterSParkview [id number] Telephone encounter Note* Telephone Encounter - GREG Friedman CNP - 08/24/2023 10:20 AM EDT If patient is urinating dark red urine again or having difficulty voiding patient should be evaluated in the ED. Prefer [facility] ED. If hematuria is intermittent or clears with fluid intake then he can keep scheduled appt with Dr. Coyne. [facility] [id number] Telephone encounter Note* Telephone Encounter - Evy Presleydom - 08/24/2023 10:14 AM EDT Patient called in to make a follow up appt from his last 2 ED visits for gross hematuria. Pt stateshe is urinating straight blood and was told to be seen natasha. He also states that Dr. Coyne was consulted while he was there and was told that he would be scheduled first available this week. Please advise. [facility] [id number] Hospital Discharge instructions* Discharge Instructions* Eduard Guan MD - 08/21/2023 11:35 PM EDT You were seen in the Emergency Department for blood in urine. Your workup here showed that you probably have a urinary tract infection. You should drink plenty of water. Take the antibiotics as prescribed. Keep the catheter in place until he can follow-up with urology. Return to the Emergency Department if you have: - Urinary catheter that does not drain urine/is blocked - High fever (102F) - Any other symptoms that concern you Please sign up for MyChart and review all results from your visit today. Please follow up with [facility] provider with any questions or concerns about your results today. Thank you for choosing [facility] for your care. Sincerely, Eduard Guan MD documented in this encounterSParkview [id number] Emergency department Note* Eduard Guan MD - 08/21/2023 9:19 PM EDT [facility] ED EMERGENCY DEPARTMENT ENCOUNTER Pt Name: Sophie Hicks Birthdate 1965 Date of evaluation: 08/21/2023 Provider: Eduard Guan MD CHIEF COMPLAINT Chief Complaint Patient presents with Blood in Urine Pt recently discharged from hospital, conte removed. Pt sts that he went to the bathroom earlier and it was straight blood. Pt arrives holding a towel with pressure to penis. Abdominal Pain Fall Denies injuries. Pt sts that he caught himself and slowed the fall pt sts that his legs are bowing out from underneath him HISTORY OF PRESENT ILLNESS I wore proper PPE for the entirety of this encounter. Sophie Hicks is a 57 y.o. male who presents to the emergency department with gross hematuria, lower abdominal pain started this evening after recently being admitted and discharged 3 days ago for the same. Patient also notes that he is feeling lightheaded and felt his legs give out on him today. Though he also notes that this has been a chronic issue. Patient says he takes aspirin but no other blood thinners. No nausea, vomiting, diarrhea. Nursing Notes were reviewed. Limitations to history: None Outside historians: None REVIEW OF SYSTEMS Constitutional: as noted in HPI, and negative for fever/chills Eyes: as noted in HPI, and negative for vision changes ENT: as noted in HPI, and negative for cough CV: as noted in HPI, and negative for chest pain, negative for palpitations Resp: as noted in HPI, and negative for shortness of breath GI: as noted in HPI, and negative for n/v/d : as noted in HPI MSK: as noted in HPI, and negative for muscle pain Skin: as noted in HPI, and negative for rash Neuro: as noted in HPI, and negative for headaches, negative for acute focal weakness/numbness PAST MEDICAL HISTORY Past Medical History: Diagnosis Date Abdominal pain Atrial fibrillation (HCC) Back pain Benign essential HTN 01/29/2015 Blood circulation, collateral CAD (coronary artery disease) mild - dx on cath - neg stress Cerebral artery occlusion with cerebral infarction (HCC) Chronic kidney disease COPD (chronic obstructive pulmonary disease) ([facility]) COVID-19 05/03 COVID-19 vaccine series completed 09/25/2020 Moderna COVID-19 vaccine series completed 12/04/2020 BOOSTER CS (cervical spondylosis) 12/25/2004 CERVICAL SPINE DJD Difficulty sleeping Dizziness GERD (gastroesophageal reflux disease) History of colonic polyps 06/21/2013 repeat 2019 Hyperlipidemia Insomnia 08/15/2014 Joint pain, hip Joint pain, knee Memory difficulties Muscle weakness Peripheral polyneuropathy 09/30/2020 Shortness of breath at rest Sleep apnea Snoring SOBOE (shortness of breath on exertion) Type 2 diabetes mellitus (HCC) 03/19/2021 SURGICAL HISTORY Past Surgical History: Procedure Laterality Date APPENDECTOMY BARIATRIC SURGERY 12/03/2021 Dr. Trevino CARDIAC CATHETERIZATION 12/17/2013 NORMAL CORONARY ARTERIES AND LVEF. COLONOSCOPY COLONOSCOPY 2020 CYSTOSCOPY 10/26/2020 CYSTOSCOPY 11/19/2020 EGD (HISTORICAL) 03/02/2023 NECK SURGERY Posterior cervical fusion ROTATOR CUFF REPAIR Bilateral UPPER GASTROINTESTINAL ENDOSCOPY 01/24/2021 Dr. Cabello CURRENT MEDICATIONS Previous Medications ACETAMINOPHEN (TYLENOL) 325 MG TABLET Take 2 tablets (650 mg) by mouth every 6 hours as needed for mild pain (1-3) or fever (For temp greater than 100.4 F (38 C)) for up to 10 days. ADVAIR DISKUS 250-50 MCG/ACT AEROSOL POWDER INHALE 1 PUFF INTO THE LUNGS TWICE DAILY ALPRAZOLAM (XANAX) 1 MG TABLET Take 1 mg by mouth every 24 hours as needed. ASPIRIN 81 MG EC TABLET 81 mg daily. ATORVASTATIN (LIPITOR) 80 MG TABLET Take 80 mg by mouth daily. BACLOFEN (LIORESAL) 10 MG TABLET Take 10 mg by mouth 2 times daily. BUMETANIDE (BUMEX) 1 MG TABLET Take 1 mg by mouth in the morning and 1 mg before bedtime. BUPROPION XL (WELLBUTRIN XL) 150 MG 24 HR TABLET Take 150 mg by mouth daily. BUSPIRONE (BUSPAR) 10 MG TABLET Take 10 mg by mouth 2 times daily. CALCIUM CITRATE 250 MG TABLET Take 2 tablets (500 mg) by mouth in the morning and 2 tablets (500 mg) at noon and 2 tablets (500 mg) before bedtime. Take 2 tablets by mouth three times daily.. CHOLESTYRAMINE (QUESTRAN) 4 G PACKET Every 24 hours. CONTINUOUS BLOOD GLUC SENSOR (FREESTYLE ALEXANDRA 2 SENSOR) [facility] USE DIRECTED; CHANGE SENSOR EVERY 14 DAYS DICYCLOMINE (BENTYL) 10 MG CAPSULE Take 10 mg by mouth in the morning and 10 mg at noon and 10 mg in the evening and 10 mg before bedtime. FLUTICASONE (FLONASE) 50 MCG/ACT NASAL SPRAY Every 24 hours. GABAPENTIN (NEURONTIN) 300 MG CAPSULE Take 600 mg by mouth 3 times daily. LEVOTHYROXINE (SYNTHROID, LEVOXYL) 75 MCG TABLET MULTIPLE VITAMINS-MINERALS (MULTIVITAMIN ADULTS 50+ PO) Take by mouth. PANTOPRAZOLE (PROTONIX) 40 MG EC TABLET take 1 tablet by mouth once daily SERTRALINE (ZOLOFT) 50 MG TABLET Take 50 mg by mouth daily. TADALAFIL (CIALIS) 5 MG TABLET Take 1 tablet (5 mg) by mouth daily. TAMSULOSIN (FLOMAX) 0.4 MG 24 HR CAPSULE Take 1 capsule (0.4 mg) by mouth daily. TRAMADOL ER (ULTRAM-ER) 300 MG 24 HR TABLET Take 300 mg by mouth 3 times daily. VENTOLIN HFA 108 (90 BASE) MCG/ACT INHALER Inhale 2 puffs every 6 hours as needed. ZINC GLUCONATE 50 MG TABLET Take 1 tablet by mouth daily. ALLERGIES Iodinated contrast media and Nsaids FAMILY HISTORY Family History Problem Relation Name Age of Onset Osteoarthritis Mother Lung cancer Mother smoker Coronary artery disease Other SOCIAL HISTORY Social History Socioeconomic History Marital status: Tobacco Use Smoking status: Never Smokeless tobacco: Never Substance and Sexual Activity Alcohol use: Never Drug use: No Social Determinants of Health Food Insecurity: No Food Insecurity (08/18/2023) Hunger Vital Sign Worried About Running Out of Food in the Last Year: Never true Ran Out of Food in the Last Year: Never true Transportation Needs: No Transportation Needs (08/18/2023) PRAPARE - Transportation Lack of Transportation (Medical): No Lack of Transportation (Non-Medical): No Intimate Partner Violence: Not At Risk (08/18/2023) Humiliation, Afraid, Rape, and Kick questionnaire Fear of Current or Ex-Partner: No Emotionally Abused: No Physically Abused: No Sexually Abused: No Housing Stability: Low Risk (08/19/2023) Housing Stability Vital Sign Unable to Pay for Housing in the Last Year: No Number of Places Lived in the Last Year: 1 Unstable Housing in the Last Year: No SCREENINGS [place] Coma Scale Best Eye Response: Spontaneous Best Verbal Response: Oriented PHYSICAL EXAM ED Triage Vitals [08/21/232123] Temp Heart Rate Resp BP -- (!) 111 15 109/81 SpO2 Temp src Heart Rate Source Patient Position 98 % -- Monitor Sitting BP Location FiO2 (%) Right arm -- Constitutional: No acute distress HEENT:Head: Atraumatic/normocephalic Eyes: Conjunctivae normal. ENT: Mucous membranes moist. CV: RRR RESP: CTAB, good respiratory effort, no increased wob GI: Abdomen soft, non-tender, non-distended, +BS, no guarding or rebound tenderness : Dark red blood slowly dribbling from the urethral meatus MSK: Normal bulk and tone, no gross deformity EXTR: Warm and well perfused, no edema SKIN: No rash/bruising/erythema PSYCH: Appropriate affect, cooperative behavior NEURO: Alert and oriented, face symmetric, no slurred speech DIAGNOSTIC RESULTS Procedures/EKG: EKG was reviewed by myself. Physician EKG interpretation can be found in [facility] RADIOLOGY (Per Emergency Physician): Interpretation per the Radiologist below, if available at the time of this note: No orders to display LABS: Labs Reviewed CBC WITH AUTO DIFFERENTIAL - Abnormal Result Value Auto WBC 9.2 RBC 4.71 Hemoglobin 14.0 Hematocrit 41.6 MCV 88.3 MCH 29.7 MCHC 33.7 RDW 12.9 Platelets 163 MPV 8.6 (*) nRBC 0.0 Neutrophils Relative 65.7 Lymphocytes Relative 20.4 Monocytes Relative 11.0 Eosinophils Relative 2.0 Basophils Relative 0.7 Immature Grans % 0.2 Neutrophils Absolute 6.0 Lymphocytes Absolute 1.9 Monocytes Absolute 1.0 (*) Eosinophils Absolute 0.2 Basophils Absolute 0.1 Immature Grans Absolute 0.0 IPF 1 COMPREHENSIVE METABOLIC PANEL - Abnormal SODIUM 138 POTASSIUM 4.1 CHLORIDE 103 CARBON DIOXIDE 24 ANION GAP 11 UREA NITROGEN 23 (*) CREATININE 1.83 (*) GLUCOSE 119 (*) CALCIUM 9.0 AST (SGOT) 26 ALT 17 ALKALINE PHOSPHATASE 80 ALBUMIN 4.1 BILIRUBIN, TOTAL 0.7 TOTAL PROTEIN 7.0 eGFR 42.0 (*) COMPLETE URINALYSIS - Abnormal Color, Urine Yellow Clarity, Urine Turbid (*) pH, Urine 5.0 Leukocytes, Urine 75 (*) Nitrite, Urine Negative Protein, Urine 50 (*) Glucose, Urine Normal Bilirubin, Urine Negative Ketones, Urine Negative Urobilinogen, Urine Normal Blood, Urine >1.0 (*) RBC, Urine >100 (*) WBC, Urine 26-50 (*) Squamous Epithelial, Urine 0-2 Bacteria, Urine Few (*) Mucus, Urine Few Hyaline Casts, Urine 11-25 (*) SPECIFIC GRAVITY OF URINE (NUMERIC) 1.026 LIPASE - Normal LIPASE 74 TROPONIN I - Normal TROPONIN I <0.012 Narrative: Patients with high levels of Biotin oral intake (ie >5 mg/day) may have falsely decreased Troponin levels. URINE CULTURE COMPLETE URINALYSIS WITH REFLEX TO CULTURE Narrative: The following orders were created for panel order Urinalysis Complete with reflex to Culture. Procedure Abnormality Status --------- ------ Complete Urinalysis[[id number]] Abnormal Final result Please view results for these tests on the individual orders. EMERGENCY DEPARTMENT COURSE and DIFFERENTIAL DIAGNOSIS/MDM: Vitals: Vitals: 08/21/23211908/21/23212308/21/23221008/21/23 2305 BP: 109/81 BP Location: Right arm Patient Position: Sitting Pulse: (!) 111 Resp: 15 Temp: 36.5 C (97.7 F) TempSrc: Oral SpO2: 98% 98% Weight: 118 kg (260 lb) Medications sodium chloride 0.9 % bolus 1,000 mL (0 mL IntraVENous Stopped 08/21/232331) HYDROmorphone (Dilaudid) injection 0.25 mg (0.25 mg IntraVENous Given 08/21/232153) ALPRAZolam (Xanax) tablet 0.25 mg (0.25 mg Oral Given 08/21/232152) cefTRIAXone (Rocephin) 1,000 mg in sodium chloride 0.9 % 50 mL IVPB Mini-Bag Plus (0 mg IntraVENousStopped 08/21/232331) I personally saw the patient and performed a substantive portion of the visit including all aspectsof the medical decision making. Patient nontoxic. Tachycardic. Other vitals normal. Normotensive. During admit just a few days ago,patient was thought to have cystitis as a cause of the hematuria. Patient was treated with ceftriaxone. Patient says that he is unsure if he is taking antibiotics as an outpatient right now. Patient's urine culture from August 17 showed no growth. Patient specifically requested Dilaudid IV for pain. When he was told that a urinary catheter wouldbe placed, he requested specifically Xanax. Creatinine is minimally elevated. Urinalysis concerning for UTI. Given dose of ceftriaxone 1 g IV. CBC with no leukocytosis or anemia. Lipase normal. Troponin is normal. Patient felt improved after treatment. As below, discussed with urology. We agreed on outpatient follow-up, antibiotics, keeping the Conte catheter in until follow-up. I placed an outpatient urology follow-up order. I discussed the plan with the patient. Discharged home. ED Course as of 08/21/232347August 21, 20232150 ECG 12 lead No concerning changes from prior [KARLIE] 2199 CBC auto differential(!) No leukocytosis, anemia, or thrombocytopenia [KARLIE] 2212 LIPASE: 74 Normal [KARLIE] 2212 Creatinine(!): 1.83 Elevated from prior concerning for acute kidney injury. BUN is also slightly elevated. [KARLIE] 2214 TROPONIN I: <0.012 Normal [KARLIE] 2257 Urinalysis Complete with reflex to Culture(!) Possible UTI. Will order CTX. [KARLIE] [address] Dumont from urology at this time. He recommended outpatient antibiotics, continue Conte, urology clinic follow-up. [KARLIE] ED Course User Index [KARLIE] Eduard Guan MD Diagnoses as of 08/21/232347 Acute cystitis with hematuria External records reviewed: Inpatient notes-urology consult note from August 17. Outpatient notes-urology clinic note from August 09 Diagnostics interpreted by me: As above Discussions with other clinicians: As above Chronic conditions impacting care: Atrial fibrillation, BPH, thrombocytopenia, hypertension, CHF, coronary disease, diabetes CONSULTS: Urology ED Medications managed: Medications sodium chloride 0.9 % bolus 1,000 mL (0 mL IntraVENous Stopped 08/21/232331) HYDROmorphone (Dilaudid) injection 0.25 mg (0.25 mg IntraVENous Given 08/21/232153) ALPRAZolam (Xanax) tablet 0.25 mg (0.25 mg Oral Given 08/21/232152) cefTRIAXone (Rocephin) 1,000 mg in sodium chloride 0.9 % 50 mL IVPB Mini-Bag Plus (0 mg IntraVENousStopped 08/21/232331) CRITICAL CARE TIME I personally saw the patient and independently provided 0 minutes of non- concurrent critical care out of the total shared critical care time provided. PROCEDURES: Unless otherwise noted below, none Procedures Patients symptoms are consistent with sepsis, severe sepsis, or septic shock (If yes use .sepsiscoremeasure): no FINAL IMPRESSION 1. Acute cystitis with hematuria DISPOSITION/PLAN Discharge 08/21/2023 11:33:34 PM PATIENT REFERRED TO: [facility] Urology [address] [facility] [address] Schedule an appointment as soon as possible for a visit DISCHARGE MEDICATIONS: New Prescriptions CEFPODOXIME (VANTIN) 200 MG TABLET Take 1 tablet (200 mg) by mouth 2 times daily for 10 days. (Please note: Portions of this note were completed with a voice recognition program. Efforts were made to edit the dictations but occasionally words and phrases are mis-transcribed.) Eduard Guan MD DIANNA Emergency Medicine Physician Acute Care [facility] [place] Eduard Guan MD 08/21/23 1848 documented in this [facility]05-10-2024 Physician Emergency department Note* Eduard Guan MD - 08/21/2023 9:19 PM EDT [facility] ED EMERGENCY DEPARTMENT ENCOUNTER Pt Name: Sophie Hicks Birthdate 1965 Date of evaluation: 08/21/2023 Provider: Eduard Guan MD CHIEF COMPLAINT Chief Complaint Patient presents with Blood in Urine Pt recently discharged from hospital, conte removed. Pt sts that he went to the bathroom earlier and it was straight blood. Pt arrives holding a towel with pressure to penis. Abdominal Pain Fall Denies injuries. Pt sts that he caught himself and slowed the fall pt sts that his legs are bowing out from underneath him HISTORY OF PRESENT ILLNESS I wore proper PPE for the entirety of this encounter. Sophie Hicks is a 57 y.o. male who presents to the emergency department with gross hematuria, lower abdominal pain started this evening after recently being admitted and discharged 3 days ago for the same. Patient also notes that he is feeling lightheaded and felt his legs give out on him today. Though he also notes that this has been a chronic issue. Patient says he takes aspirin but no other blood thinners. No nausea, vomiting, diarrhea. Nursing Notes were reviewed. Limitations to history: None Outside historians: None REVIEW OF SYSTEMS Constitutional: as noted in HPI, and negative for fever/chills Eyes: as noted in HPI, and negative for vision changes ENT: as noted in HPI, and negative for cough CV: as noted in HPI, and negative for chest pain, negative for palpitations Resp: as noted in HPI, and negative for shortness of breath GI: as noted in HPI, and negative for n/v/d : as noted in HPI MSK: as noted in HPI, and negative for muscle pain Skin: as noted in HPI, and negative for rash Neuro: as noted in HPI, and negative for headaches, negative for acute focal weakness/numbness PAST MEDICAL HISTORY Past Medical History: Diagnosis Date Abdominal pain Atrial fibrillation (HCC) Back pain Benign essential HTN 01/29/2015 Blood circulation, collateral CAD (coronary artery disease) mild - dx on cath - neg stress Cerebral artery occlusion with cerebral infarction (HCC) Chronic kidney disease COPD (chronic obstructive pulmonary disease) ([facility]) COVID-19 05/03 COVID-19 vaccine series completed 09/25/2020 Moderna COVID-19 vaccine series completed 12/04/2020 BOOSTER CS (cervical spondylosis) 12/25/2004 CERVICAL SPINE DJD Difficulty sleeping Dizziness GERD (gastroesophageal reflux disease) History of colonic polyps 06/21/2013 repeat 2019 Hyperlipidemia Insomnia 08/15/2014 Joint pain, hip Joint pain, knee Memory difficulties Muscle weakness Peripheral polyneuropathy 09/30/2020 Shortness of breath at rest Sleep apnea Snoring SOBOE (shortness of breath on exertion) Type 2 diabetes mellitus (HCC) 03/19/2021 SURGICAL HISTORY Past Surgical History: Procedure Laterality Date APPENDECTOMY BARIATRIC SURGERY 12/03/2021 Dr. Trevino CARDIAC CATHETERIZATION 12/17/2013 NORMAL CORONARY ARTERIES AND LVEF. COLONOSCOPY COLONOSCOPY 2020 CYSTOSCOPY 10/26/2020 CYSTOSCOPY 11/19/2020 EGD (HISTORICAL) 03/02/2023 NECK SURGERY Posterior cervical fusion ROTATOR CUFF REPAIR Bilateral UPPER GASTROINTESTINAL ENDOSCOPY 01/24/2021 Dr. Cabello CURRENT MEDICATIONS Previous Medications ACETAMINOPHEN (TYLENOL) 325 MG TABLET Take 2 tablets (650 mg) by mouth every 6 hours as needed for mild pain (1-3) or fever (For temp greater than 100.4 F (38 C)) for up to 10 days. ADVAIR DISKUS 250-50 MCG/ACT AEROSOL POWDER INHALE 1 PUFF INTO THE LUNGS TWICE DAILY ALPRAZOLAM (XANAX) 1 MG TABLET Take 1 mg by mouth every 24 hours as needed. ASPIRIN 81 MG EC TABLET 81 mg daily. ATORVASTATIN (LIPITOR) 80 MG TABLET Take 80 mg by mouth daily. BACLOFEN (LIORESAL) 10 MG TABLET Take 10 mg by mouth 2 times daily. BUMETANIDE (BUMEX) 1 MG TABLET Take 1 mg by mouth in the morning and 1 mg before bedtime. BUPROPION XL (WELLBUTRIN XL) 150 MG 24 HR TABLET Take 150 mg by mouth daily. BUSPIRONE (BUSPAR) 10 MG TABLET Take 10 mg by mouth 2 times daily. CALCIUM CITRATE 250 MG TABLET Take 2 tablets (500 mg) by mouth in the morning and 2 tablets (500 mg) at noon and 2 tablets (500 mg) before bedtime. Take 2 tablets by mouth three times daily.. CHOLESTYRAMINE (QUESTRAN) 4 G PACKET Every 24 hours. CONTINUOUS BLOOD GLUC SENSOR (Meridium ALEXANDRA 2 SENSOR) [facility] USE DIRECTED; CHANGE SENSOR EVERY 14 DAYS DICYCLOMINE (BENTYL) 10 MG CAPSULE Take 10 mg by mouth in the morning and 10 mg at noon and 10 mg in the evening and 10 mg before bedtime. FLUTICASONE (FLONASE) 50 MCG/ACT NASAL SPRAY Every 24 hours. GABAPENTIN (NEURONTIN) 300 MG CAPSULE Take 600 mg by mouth 3 times daily. LEVOTHYROXINE (SYNTHROID, LEVOXYL) 75 MCG TABLET MULTIPLE VITAMINS-MINERALS (MULTIVITAMIN ADULTS 50+ PO) Take by mouth. PANTOPRAZOLE (PROTONIX) 40 MG EC TABLET take 1 tablet by mouth once daily SERTRALINE (ZOLOFT) 50 MG TABLET Take 50 mg by mouth daily. TADALAFIL (CIALIS) 5 MG TABLET Take 1 tablet (5 mg) by mouth daily. TAMSULOSIN (FLOMAX) 0.4 MG 24 HR CAPSULE Take 1 capsule (0.4 mg) by mouth daily. TRAMADOL ER (ULTRAM-ER) 300 MG 24 HR TABLET Take 300 mg by mouth 3 times daily. VENTOLIN HFA 108 (90 BASE) MCG/ACT INHALER Inhale 2 puffs every 6 hours as needed. ZINC GLUCONATE 50 MG TABLET Take 1 tablet by mouth daily. ALLERGIES Iodinated contrast media and Nsaids FAMILY HISTORY Family History Problem Relation Name Age of Onset Osteoarthritis Mother Lung cancer Mother smoker Coronary artery disease Other SOCIAL HISTORY Social History Socioeconomic History Marital status: Tobacco Use Smoking status: Never Smokeless tobacco: Never Substance and Sexual Activity Alcohol use: Never Drug use: No Social Determinants of Health Food Insecurity: No Food Insecurity (08/18/2023) Hunger Vital Sign Worried About Running Out of Food in the Last Year: Never true Ran Out of Food in the Last Year: Never true Transportation Needs: No Transportation Needs (08/18/2023) PRAPARE - Transportation Lack of Transportation (Medical): No Lack of Transportation (Non-Medical): No Intimate Partner Violence: Not At Risk (08/18/2023) Humiliation, Afraid, Rape, and Kick questionnaire Fear of Current or Ex-Partner: No Emotionally Abused: No Physically Abused: No Sexually Abused: No Housing Stability: Low Risk (08/19/2023) Housing Stability Vital Sign Unable to Pay for Housing in the Last Year: No Number of Places Lived in the Last Year: 1 Unstable Housing in the Last Year: No SCREENINGS [place] Coma Scale Best Eye Response: Spontaneous Best Verbal Response: Oriented PHYSICAL EXAM ED Triage Vitals [08/21/232123] Temp Heart Rate Resp BP -- (!) 111 15 109/81 SpO2 Temp src Heart Rate Source Patient Position 98 % -- Monitor Sitting BP Location FiO2 (%) Right arm -- Constitutional: No acute distress HEENT:Head: Atraumatic/normocephalic Eyes: Conjunctivae normal. ENT: Mucous membranes moist. CV: RRR RESP: CTAB, good respiratory effort, no increased wob GI: Abdomen soft, non-tender, non-distended, +BS, no guarding or rebound tenderness : Dark red blood slowly dribbling from the urethral meatus MSK: Normal bulk and tone, no gross deformity EXTR: Warm and well perfused, no edema SKIN: No rash/bruising/erythema PSYCH: Appropriate affect, cooperative behavior NEURO: Alert and oriented, face symmetric, no slurred speech DIAGNOSTIC RESULTS Procedures/EKG: EKG was reviewed by myself. Physician EKG interpretation can be found in [facility] RADIOLOGY (Per Emergency Physician): Interpretation per the Radiologist below, if available at the time of this note: No orders to display LABS: Labs Reviewed CBC WITH AUTO DIFFERENTIAL - Abnormal Result Value Auto WBC 9.2 RBC 4.71 Hemoglobin 14.0 Hematocrit 41.6 MCV 88.3 MCH 29.7 MCHC 33.7 RDW 12.9 Platelets 163 MPV 8.6 (*) nRBC 0.0 Neutrophils Relative 65.7 Lymphocytes Relative 20.4 Monocytes Relative 11.0 Eosinophils Relative 2.0 Basophils Relative 0.7 Immature Grans % 0.2 Neutrophils Absolute 6.0 Lymphocytes Absolute 1.9 Monocytes Absolute 1.0 (*) Eosinophils Absolute 0.2 Basophils Absolute 0.1 Immature Grans Absolute 0.0 IPF 1 COMPREHENSIVE METABOLIC PANEL - Abnormal SODIUM 138 POTASSIUM 4.1 CHLORIDE 103 CARBON DIOXIDE 24 ANION GAP 11 UREA NITROGEN 23 (*) CREATININE 1.83 (*) GLUCOSE 119 (*) CALCIUM 9.0 AST (SGOT) 26 ALT 17 ALKALINE PHOSPHATASE 80 ALBUMIN 4.1 BILIRUBIN, TOTAL 0.7 TOTAL PROTEIN 7.0 eGFR 42.0 (*) COMPLETE URINALYSIS - Abnormal Color, Urine Yellow Clarity, Urine Turbid (*) pH, Urine 5.0 Leukocytes, Urine 75 (*) Nitrite, Urine Negative Protein, Urine 50 (*) Glucose, Urine Normal Bilirubin, Urine Negative Ketones, Urine Negative Urobilinogen, Urine Normal Blood, Urine >1.0 (*) RBC, Urine >100 (*) WBC, Urine 26-50 (*) Squamous Epithelial, Urine 0-2 Bacteria, Urine Few (*) Mucus, Urine Few Hyaline Casts, Urine 11-25 (*) SPECIFIC GRAVITY OF URINE (NUMERIC) 1.026 LIPASE - Normal LIPASE 74 TROPONIN I - Normal TROPONIN I <0.012 Narrative: Patients with high levels of Biotin oral intake (ie >5 mg/day) may have falsely decreased Troponin levels. URINE CULTURE COMPLETE URINALYSIS WITH REFLEX TO CULTURE Narrative: The following orders were created for panel order Urinalysis Complete with reflex to Culture. Procedure Abnormality Status --------- ------ Complete Urinalysis[[id number]] Abnormal Final result Please view results for these tests on the individual orders. EMERGENCY DEPARTMENT COURSE and DIFFERENTIAL DIAGNOSIS/MDM: Vitals: Vitals: 08/21/23211908/21/23212308/21/23 22108/21/23 2305 BP: 109/81 BP Location: Right arm Patient Position: Sitting Pulse: (!) 111 Resp: 15 Temp: 36.5 C (97.7 F) TempSrc: Oral SpO2: 98% 98% Weight: 118 kg (260 lb) Medications sodium chloride 0.9 % bolus 1,000 mL (0 mL IntraVENous Stopped 08/21/232331) HYDROmorphone (Dilaudid) injection 0.25 mg (0.25 mg IntraVENous Given 08/21/232153) ALPRAZolam (Xanax) tablet 0.25 mg (0.25 mg Oral Given 08/21/232152) cefTRIAXone (Rocephin) 1,000 mg in sodium chloride 0.9 % 50 mL IVPB Mini-Bag Plus (0 mg IntraVENousStopped 08/21/232331) I personally saw the patient and performed a substantive portion of the visit including all aspectsof the medical decision making. Patient nontoxic. Tachycardic. Other vitals normal. Normotensive. During admit just a few days ago,patient was thought to have cystitis as a cause of the hematuria. Patient was treated with ceftriaxone. Patient says that he is unsure if he is taking antibiotics as an outpatient right now. Patient's urine culture from August 17 showed no growth. Patient specifically requested Dilaudid IV for pain. When he was told that a urinary catheter wouldbe placed, he requested specifically Xanax. Creatinine is minimally elevated. Urinalysis concerning for UTI. Given dose of ceftriaxone 1 g IV. CBC with no leukocytosis or anemia. Lipase normal. Troponin is normal. Patient felt improved after treatment. As below, discussed with urology. We agreed on outpatient follow-up, antibiotics, keeping the Conte catheter in until follow-up. I placed an outpatient urology follow-up order. I discussed the plan with the patient. Discharged home. ED Course as of 08/21/232347August 21, 20232150 ECG 12 lead No concerning changes from prior [KARLIE] 220 CBC auto differential(!) No leukocytosis, anemia, or thrombocytopenia [KARLIE] 221 LIPASE: 74 Normal [KARLIE] 221 Creatinine(!): 1.83 Elevated from prior concerning for acute kidney injury. BUN is also slightly elevated. [KARLIE] 2214 TROPONIN I: <0.012 Normal [KARLIE] 225 Urinalysis Complete with reflex to Culture(!) Possible UTI. Will order CTX. [KARLIE] [address] Dumont from urology at this time. He recommended outpatient antibiotics, continue Conte, urology clinic follow-up. [KARLIE] ED Course User Index [KARLIE] Eduard Guan MD Diagnoses as of 08/21/232347 Acute cystitis with hematuria External records reviewed: Inpatient notes-urology consult note from August 17. Outpatient notes-urology clinic note from August 09 Diagnostics interpreted by me: As above Discussions with other clinicians: As above Chronic conditions impacting care: Atrial fibrillation, BPH, thrombocytopenia, hypertension, CHF, coronary disease, diabetes CONSULTS: Urology ED Medications managed: Medications sodium chloride 0.9 % bolus 1,000 mL (0 mL IntraVENous Stopped 08/21/232331) HYDROmorphone (Dilaudid) injection 0.25 mg (0.25 mg IntraVENous Given 08/21/232153) ALPRAZolam (Xanax) tablet 0.25 mg (0.25 mg Oral Given 08/21/232152) cefTRIAXone (Rocephin) 1,000 mg in sodium chloride 0.9 % 50 mL IVPB Mini-Bag Plus (0 mg IntraVENousStopped 08/21/232331) CRITICAL CARE TIME I personally saw the patient and independently provided 0 minutes of non- concurrent critical care out of the total shared critical care time provided. PROCEDURES: Unless otherwise noted below, none Procedures Patients symptoms are consistent with sepsis, severe sepsis, or septic shock (If yes use .sepsiscoremeasure): no FINAL IMPRESSION 1. Acute cystitis with hematuria DISPOSITION/PLAN Discharge 08/21/2023 11:33:34 PM PATIENT REFERRED TO: [facility] Urology [address] [facility] [address] Schedule an appointment as soon as possible for a visit DISCHARGE MEDICATIONS: New Prescriptions CEFPODOXIME (VANTIN) 200 MG TABLET Take 1 tablet (200 mg) by mouth 2 times daily for 10 days. (Please note: Portions of this note were completed with a voice recognition program. Efforts were made to edit the dictations but occasionally words and phrases are mis-transcribed.) Eduard Guan MD DIANNA Emergency Medicine Physician [facility] Eduard Guan MD 08/21/232347 [id number] Telephone encounter Note* Telephone Encounter - Sherlyn Nix - 08/21/2023 6:03 PM EDT Name of Caller: Sophie Contact Reason for Appointment: Patient stated he sees Dr. Victoria. Patient requesting to schedule an appointment with Dr. Victoria stating that his legs have been giving out on him. Please call patient to advise. Office Name: Neurosurgery Medication Refills need, if any: N/A Medication Name: N/A [id number] Note* Care Coordination - Hellen Gandara RN - 08/20/2023 1:43 PM EDT Images from the original note were not included. Care Management Progress Note Pt passes voiding trial and conte cath removed. DC orders placed after cleared by urology. Follow up appointment w Dr. Coyne 09/28/2023 DCP home w spouse. Discharge Milestones and Delays Expected Date/Time: 08/20/2023 Midday Disposition: Home or Self Care Transport status: No current request Discharge Milestones Place discharge order Complete med reconciliation Case mgmt discharge readiness Clinical Stability Diagnsotic Workup Expected Discharge History Expected Date/Time Set By Reviewed At 08/20/2023 Midday Yadiel Boss MD 08/20/2023 12:06 PM Tcc estimate voiding trial then d/c 08/20/2023 GODFREY Bailey 08/20/2023 10:23 AM 08/20/2023 Hellen Gandara RN 08/19/2023 8:10 AM Tcc estimate following Urine CX Resolution of hematuria prior to dc 08/20/2023 Floyd Dunlap 08/18/2023 6:08 PM 08/20/2023 Floyd Dunlap 08/18/2023 4:40 AM Length of Stay (Days): 2 GMLOS: 2.9 [id number] Note* Care Coordination - Hellen Gandara RN - 08/20/2023 1:43 PM EDT Images from the original note were not included. Care Management Progress Note Pt passes voiding trial and conte cath removed. DC orders placed after cleared by urology. Follow up appointment w Dr. Coyne 09/28/2023 DCP home w spouse. Discharge Milestones and Delays Expected Date/Time: 08/20/2023 Midday Disposition: Home or Self Care Transport status: No current request Discharge Milestones Place discharge order Complete med reconciliation Case mgmt discharge readiness Clinical Stability Diagnsotic Workup Expected Discharge History Expected Date/Time Set By Reviewed At 08/20/2023 Midday Yadiel Boss MD 08/20/2023 12:06 PM Tcc estimate voiding trial then d/c 08/20/2023 GODFREY Bailey 08/20/2023 10:23 AM 08/20/2023 Hellen Gandara RN 08/19/2023 8:10 AM Tcc estimate following Urine CX Resolution of hematuria prior to dc 08/20/2023 Floyd Dunlap 08/18/2023 6:08 PM 08/20/2023 Floyd Dunlap 08/18/2023 4:40 AM Length of Stay (Days): 2 GMLOS: 2.9 [facility] [id number] Miscellaneous Notes* Care Coordination - Hellen Gandara RN - 08/20/2023 1:43 PM EDT Images from the original note were not included. Care Management Progress Note Pt passes voiding trial and conte cath removed. DC orders placed after cleared by urology. Follow up appointment w Dr. Coyne 09/28/2023 DCP home w spouse. Discharge Milestones and Delays Expected Date/Time: 08/20/2023 Midday Disposition: Home or Self Care Transport status: No current request Discharge Milestones Place discharge order Complete med reconciliation Case mgmt discharge readiness Clinical Stability Diagnsotic Workup Expected Discharge History Expected Date/Time Set By Reviewed At 08/20/2023 Midday Yadiel Boss MD 08/20/2023 12:06 PM Tcc estimate voiding trial then d/c 08/20/2023 GODFREY Bailey 08/20/2023 10:23 AM 08/20/2023 Hellen Gandara RN 08/19/2023 8:10 AM Tcc estimate following Urine CX Resolution of hematuria prior to dc 08/20/2023 Floyd Dunlap 08/18/2023 6:08 PM 08/20/2023 Floyd Dunlap 08/18/2023 4:40 AM Length of Stay (Days): 2 GMLOS: 2.9 * Care Coordination - Hellen Gandara RN - 08/20/2023 8:37 AM EDT Care Managment Initial Assessment Date: 08/20/2023 Patient Name: Sophie Hicks : 1965 Patient Information Source of Information: Patient Cognition/Language: WFL - Within Functional Limits Permission given to speak with patient territory account representative/caregiver as indicated: Yes Confirmation of Payer with patient/family: Yes Payer Name: Medicare A/ B : No Confirmation of Primary Care Physician: Confirmed PCP Name: Dr. Fernandez Seen in last 2 years?: No Primary Caregiver: Self If assistance needed, confirmed caregiver ready, willing and able to care for patient at discharge:Yes Confirmed with: spouse Ellie(works fulltime at a Children's daycare)available in early am and afternoon. Living Arrangements Current Residence: House Number of Floors 1 Number of Entry Steps: (Ramp) Bed/Bath Levels: Facility: Facility Name: Plan to Return: Yes Lives with: Spouse/significant other, Extended family members (Father in law who has Alzheimers also lives with pt) Support Systems: Spouse/significant other Activities of Daily Living Ambulation: Independent (Uses walker Prn) Bathing/Dressing: Independent Elimination/Continence/Toileting: Independent Feeding: Independent Who Assists with Activities of Daily Living: spouse as needed. Pt is at baseline indep Instrumental Activities of Daily Living Prescription Coverage: Yes [facility] Medication Management: Independent Transportation/Shopping: Independent Transportation Mode: Car Needs Assistance with Transportation at Discharge: No Meal Preparation: Independent Laundry/Cleaning: Assistance Provider Laundry/Cleaning Assistance Provider Name: spouse performs Finances/Bill Paying: Independent Communication: Independent Types of Care Services/Equipment Utilized Care Services: Skilled Home Health Services Care Services Provider Name: Not currently active but pt reports having c services via [facility] in the past. Dialysis Type: NA Durable Medical Equipment: Walker, Wheelchair (standard or power), Shower Seat DME Provider: Owns Patient's Goal/Discharge Plan Patient expects to be discharged to: Home w [facility] for catheter management/assist Discharge Planning Actions: Continue to follow Patient's Choice Rights and [employer] and Collaborative Relationships Disclosed as Indicated for Post-Acute Care: Yes Interdisciplinary Team Engagement: Home Health Care Social Work Referral for: (Denies social concerns. Tcc did provide pt with information about adult day care facilities for his father in law.) Additional Information: Pt admitted with gross hematuria and cystitis Urology consulted and following 3 way catheter placed 24 Fr and pt will dc home w catheter Pt's iv antibiotics discontinued as urine cx negative IA completed with pt at bedside. Tcc introduced self and role. Pt reports living with spouse Ellie in a 1 story home w ramped entrance. Pt states his father in law who has Alzheimer's is currently residing with family. Pt's spouse works time piece repairer at a children's day care. Pt is otherwise independent with ADLs and IADLs. Drives but d/t medications has reportedly not driven in a while. Pt 's spouse drives, shops, performs most housekeeping and cooking. Pt denies social insecurities when asked by TCC. Pt confirmed insurance provider is medicare w no secondary. PCP Dr. Fernandez and [facility]. Pt concerned about dc home w conte catheter and would like home care services. Tcc tasked home care to see via [facility] and will also share in rounds this am. Anticipate dc home today w [facility] spouse to transport. Hellen Gandara RN * Care Plan - Shonda Umanzor RN - 08/19/2023 3:38 AM EDT Problem: Pain - Adult Goal: Verbalizes/displays adequate comfort level or baseline comfort level Outcome: Progressing Problem: Safety - Adult Goal: Free from fall injury Outcome: Progressing Problem: Discharge Planning Goal: Discharge to home or other facility with appropriate resources Outcome: Progressing Problem: Chronic Conditions and Co-morbidities Goal: Patient's chronic conditions and co-morbidity symptoms are monitored and maintained or improved Outcome: Progressing The patient is Moderately Stable - Low risk of patient condition declining or worsening The patient's goals for the shift include comfort The clinical goals for the shift include remain safe Over the shift, the patient did not make progress toward the following goals. Barriers to progression include decrease rest and discomfort. Recommendations to address these barriers include medications per MAR, provide a restful environment. * Significant Event - Yadiel Boss MD - 08/18/2023 12:50 PM EDT Seen and examined. Chart/labs/tests reviewed. Continue antibiotics/conte and follow up urine cx. Please see H&P done by Dr Dunlap earlier today for complete details. * Treatment Plan - GREG Jackson NP - 08/18/2023 12:32 PM EDT Images from the original note were not included. Urology notified that patient's urine returned to merlot in color, with inability to irrigate foleycatheter. Due to return of gross hematuria grade V, a 3 way conte catheter was inserted upon removal of prior16 fr catheter. Patient tolerate well, return of initially blood grade IV urine without clots, thenimmediately yellow. Hand irrigations performed, 500 mL, and urine remained clear without presence of blood clots. Start Q4hr hand irrigations (see orders), and notify urology if hematuria or clots return. documented in this [facility]05-09-2024 Hospital Discharge instructions* Discharge Instr - Activity* Yadiel Boss MD - 08/20/2023 12:01 PM EDT As tolerated * Discharge Instr - Diet* Yadiel Boss MD - 08/20/2023 12:02 PM EDT Low salt/low fat diet documented in this [facility]05-09-2024 Nurse Note* Daja Bucio RN - 08/20/2023 11:18 AM EDT Instilled 300 ml of Sterile water via catheter to start voiding trial. Removed conte catheter (30mlof balloon fluid). Met minimal amount of resistance when trying to remove tip of catheter. Patient was able void 275 ml within 10 minutes of instillation. Notified Mariana -Urology. [id number] Nurse Note* Daja Bucio RN - 08/20/2023 11:18 AM EDT Instilled 300 ml of Sterile water via catheter to start voiding trial. Removed conte catheter (30mlof balloon fluid). Met minimal amount of resistance when trying to remove tip of catheter. Patient was able void 275 ml within 10 minutes of instillation. Notified Mariana -Urology. documented in this [facility]05-09-2024 History of Present illness Narrative* GREG Jackson NP - 08/20/2023 9:42 AM EDT Images from the original note were not included. GREG Jackson NP 08/20/2023 at 9:44 AM Urology Progress Note PATIENT NAME: Sophie Hicks DATE OF : 1965 ADMISSION DATE: 08/18/2023 3:06 AM TODAY'S DATE: 08/20/2023 Subjective Urology following for gross hematuria. No acute events overnight. At this time patient's only complaint is penile and urethral pain secondary to indwelling catheter. No hematuria in >24 hours per patient and chart review. He denies fever/chills, flank pain, abdominal pain, or catheter malfunction. Afebrile, VSS. Objective VS: BP 135/81 (BP Location: Right arm, Patient Position: Lying) Pulse 71 Temp 36.9 C (98.4 F) (Temporal) Resp 18 Ht 6' 1 (1.854 m) Wt 260 lb (118 kg) SpO2 90% BMI 34.30 kg/m I & O - 24hr: Intake/Output Summary (Last 24 hours) at 08/20/2023 0944 Last data filed at 08/20/2023 0000 Gross per 24 hour Intake -- Output 1500 ml Net -1500 ml Physical Exam: General: Neck: Resp: Abdomen: No acute distress Supple Normal effort Soft, rotund, non-tender, nondistended : [address] catheter draining clear eagle urine. Negative for CVA tenderness. Skin: Skin color, texture, turgor normal, no rashes or lesions Conte is draining clear eagle urine (Grade I as below) Labs and Imaging Studies Labs: CBC: Recent Labs 08/18/23 0331 08/19/23 0235 08/20/23 0017 WBC 12.5* 6.6 7.6 HGB 14.3 13.2 13.3 HCT 43.0 39.5* 39.9* MCV 88.1 88.6 88.9 PLT 110* 98* 121* BMP: Recent Labs 08/18/23 03308/19/23 0235 08/20/23 0017 NA 141 140 136 K 4.1 3.8 4.1 CL 106 104 103 CO2 23 27 26 BUN 20 17 14 CREATININE 1.57* 1.21 1.01 U/A: No results found for: NITRITE, LEUKOCYTESUR, PHUR, BACTERIA, SPECGRAV, BLOODU, GLUCOSEU, KETONESU Urine Culture: No components found for: LABURIN Blood Culture: n/a Imaging Studies: CT abdomen pelvis wo IV contrast Narrative: Patient Name: SOPHIE HICKS : 1965 [facility]#: [id number] Exam Date/Time: 08/18/2023 04:02 Procedure: CT ABDOMEN PELVIS WO IV CONTRAST [facility] Reason For Exam: Abdominal pain, acute, nonlocalized EXAMINATION: CT of the abdomen and pelvis without contrast. EXAM DATE & TIME: 08/18/2023 4:02 AM EDT INDICATION: Abdominal pain, acute, nonlocalized ADDITIONAL INFORMATION: 57-year-old male with acute abdominal pain presents for evaluation COMPARISON: CT abdomen pelvis dated 04/10/2023 LIMITATIONS: Evaluation of the vasculature as well as the solid and hollow viscera is limited due to the lack of intravenous and oral contrast. TECHNIQUE: Contiguous multiplanar 3 mm images were obtained from the levels of the lung bases through the pelvis without contrast. Images were reformatted in coronal and sagittal projections using the raw CT data and were interpreted in conjunction with the axial images to render the findings listed below. Dose reduction was employed with automated exposure control. FINDINGS: Included images of the lower thorax: No focal lung consolidation or pleural effusion. There is bibasilar scarring/atelectasis. Hepatobiliary: Unremarkable liver without biliary dilation evident. Gallbladder appears normal. Spleen: Unremarkable. Pancreas: There is fatty atrophy of the pancreas. Adrenal glands: Unremarkable. Kidneys, ureters and bladder: No hydronephrosis or nephrolithiasis. A Conte catheter is present within the urinary bladder. Abdominal and pelvic vasculature: Unremarkable. Gastrointestinal: The patient is status post sleeve gastrectomy. No evidence of bowel obstruction. No pericecal inflammation to suggest acute appendicitis. Peritoneum, retroperitoneum and mesentery: No free fluid or free air. Lymph nodes: No abdominal or pelvic lymphadenopathy is evident. 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 Visualized musculoskeletal structures: No acute fracture or destructive osseous lesion is identified. Impression: No acute process. Chronic findings as above. Report Dictated on Electronically Signed By: Rohan Michael MD Electronically Signed Date/Time: 08/18/2023 4:17 AM EDT Assessment and Plan ASSESMENT: This is a 57 year male with urologic complaint of gross hematuria. Known to urology for history of BPH, lower urinary tract symptoms, and status [place] Urolift [place] [address] Whittaker. Upon irrigation of patient's bladder this morning, urine remained clear of blood or clots. Irrigated 400 mL via 24 fr catheter, patient tolerated well. PLAN: Gross hematuria resolved at this time. Discussed with patient that as hematuria resolved okay to perform voiding trial prior to discharge,he would prefer to not go home with catheter. See orders. Plan to instill 300 mL irrigation solution via catheter, then remove conte. Monitor urine output, and notify urology should patient void <200 mL, overall not void, or develop bladder distention/pain. Continue Tamsulosin 0.4 mg twice daily, instruct patient to resume regimen upon discharge. Resume Tadalafil 5 mg daily per prior recommendation from Dr. Coyne. Pain control per primary. Patient should feel relief of discomfort with catheter removal. Continue to trend BMP, creatinine 1.01 (1.21). Continue to trend CBC, WBC 7.6 (6.6) & h/h 13.3/39.9 (13.2/39.5). Patient aware to notify urology should hematuria return upon discharge home. Assessment & plan discussed with patient, RN, and primary team. Urology to sign off this hospitalization, and keep scheduled follow up with Dr. Coyne in 4 weeks. Please contact the clinical transformation specialist urology team for questions or concerns. --Mariana Ball CNP, PLANT OPERATOR CONTROL ROOM OPERATOR on 08/20/2023 at 9:44 AM An electronic signature was used to authenticate this note. On this date 08/20/2023 I have spent 50 minutes reviewing previous notes, test results and discussingthe diagnosis and importance of compliance with the treatment plan as well as documenting on the day of the visit. * Clair Jackson - 08/20/2023 7:27 AM EDT Nutrition rescreen complete. Pt assigned a level one for nutrition care. * Yadiel Boss MD - 08/19/2023 1:49 PM EDT Images from the original note were not included. Hospitalist Progress Note 08/19/2023 Subjective: Admit Date: 08/18/2023 PCP: WILIAM FERNANDEZ MD Room#: B1-157/B1-157 A Interval History: Some discomfort around catheter insertion. No cp, sob, cough, n/v, f/c. Tolerating diet. Weak. Caseand plan discussed with patient and separately. All questions answered. Adult diet Regular 24HR INTAKE/OUTPUT: Intake/Output Summary (Last 24 hours) at 08/19/2023 1349 Last data filed at 08/19/2023 0528 Gross per 24 hour Intake 1100 ml Output 1250 ml Net -150 ml Past Medical History: Past Medical History: Diagnosis Date Abdominal pain Atrial fibrillation (HCC) Back pain Benign essential HTN 01/29/2015 Blood circulation, collateral CAD (coronary artery disease) mild - dx on cath - neg stress Cerebral artery occlusion with cerebral infarction (HCC) Chronic kidney disease COPD (chronic obstructive pulmonary disease) (HCC) COVID-19 05/03 COVID-19 vaccine series completed 09/25/2020 Moderna COVID-19 vaccine series completed 12/04/2020 BOOSTER CS (cervical spondylosis) 12/25/2004 CERVICAL SPINE DJD Difficulty sleeping Dizziness GERD (gastroesophageal reflux disease) History of colonic polyps 06/21/2013 repeat 2019 Hyperlipidemia Insomnia 08/15/2014 Joint pain, hip Joint pain, knee Memory difficulties Muscle weakness Peripheral polyneuropathy 09/30/2020 Shortness of breath at rest Sleep apnea Snoring SOBOE (shortness of breath on exertion) Type 2 diabetes mellitus (HCC) 03/19/2021 LABS: CBC: Recent Labs 08/17/23204708/18/2333008/19/23 0235 WBC 9.4 12.5* 6.6 RBC 4.61 4.88 4.46 HGB 13.7 14.3 13.2 HCT 40.6 43.0 39.5* MCV 88.1 88.1 88.6 RDW 13.2 13.1 13.2 PLT 102* 110* 98* BMP: Recent Labs 08/17/23204708/18/2333008/19/23 0235 NA 140 141 140 K 4.2 4.1 3.8 CL 105 106 104 CO2 26 23 27 BUN 18 20 17 CREATININE 1.78* 1.57* 1.21 GLUCOSE 103* 132* 112* CALCIUM 8.7 8.8 8.6 ANIONGAP 9 12 9 LIVER PROFILE: Recent Labs 08/18/23 0331 AST 28 ALT 17 BILITOT 0.9 ALKPHOS 71 PROT 7.4 PT/INR: No results for input(s): PROTIME, INR in the last 72 hours. CARDIAC ENZYMES: No results for input(s): TROPONINI in the last 72 hours. Procalcitonin: No results found for: PROCAL COVID-19 PCR: No results for input(s): COVID19 in the last 72 hours. Objective: Vitals: BP 153/91 Pulse 72 Temp 36.5 C (97.7 F) (Temporal) Resp 18 Ht 6' 1 (1.854 m) Wt 260 lb (118 kg) SpO2 96% BMI 34.30 kg/m Pulse Ox: SpO2 Av % Min: 95 % Max: 98 % Supplemental O2: Physical Exam Vitals and nursing note reviewed. Constitutional: General: He is not in acute distress. Appearance: He is obese. HENT: Head: Normocephalic and atraumatic. Mouth/Throat: Pharynx: Oropharynx is clear. Eyes: Extraocular Movements: Extraocular movements intact. Pupils: Pupils are equal, round, and reactive to light. Cardiovascular: Rate and Rhythm: Normal rate and regular rhythm. Pulses: Normal pulses. Heart sounds: Normal heart sounds. Pulmonary: Effort: Pulmonary effort is normal. Breath sounds: Normal breath sounds. Abdominal: General: Bowel sounds are normal. There is no distension. Palpations: Abdomen is soft. Tenderness: There is abdominal tenderness. There is no guarding. Musculoskeletal: General: Normal range of motion. Cervical back: Neck supple. Right lower leg: No edema. Left lower leg: No edema. Skin: General: Skin is warm and dry. Capillary Refill: Capillary refill takes less than 2 seconds. Neurological: General: No focal deficit present. Mental Status: He is alert and oriented to person, place, and time. Mental status is at baseline. Psychiatric: Mood and Affect: Mood normal. Medications: Scheduled PRN atorvastatin, 80 mg, Oral, Daily cefTRIAXone, 1,000 mg, IntraVENous, q24h cholestyramine, 1 packet, Oral, Daily fluticasone, 1 spray, Each Nostril, Daily gabapentin, 600 mg, Oral, TID levothyroxine, 75 mcg, Oral, qAM AC mometasone-formoterol, 2 puff, Inhalation, BID pantoprazole, 40 mg, Oral, Daily tamsulosin, 0.4 mg, Oral, Daily PRN medications: acetaminophen OR acetaminophen, lidocaine, naloxone, ondansetron ODT OR ondansetron, oxyCODONE, polyethylene glycol (PEG) 3350 Continuous Assessment Gross hematuria resolving MEGAN-improving Thrombocytopenia Leukocytosis Hyperglycemia CKD stage 2 CAD GERD COPD Hypothyroidism Neuropathy Depression/anxiety Obesity Plan DC antibiotics after today, continue conte with frequent irrigation, continue pain control-tramadoladded as he is on it at home, follow platelets closely, following, follow up labs, discharge planning, see orders. -I discussed case and management recommendations with - am labs, replace lytes prn - PT/OT/CM/SW - delirium precautions: increase activity - DVT prophylaxis: SCDs and encourage ambulation Advance Directive: Full Code Anticipated Discharge - Date - 08/19 - Location - Home - Pending the following - remains without hematuria for >24 hours Total time spent (which include face to face and non face to face encounters) : 48 minutes Toxic drug monitoring/narrow therapeutic index drug monitoring : # Drug name : # Route administered : # Method of monitoring : Extended Emergency Contact Information Primary Emergency Contact: Ellie Hicks Relation: Spouse YADIEL BOSS MD Division of Hospitalist Medicine [facility] * GREG Jackson NP - 08/19/2023 8:46 AM EDT Images from the original note were not included. GREG Jackson NP 08/19/2023 at 8:46 AM Urology Progress Note PATIENT NAME: Sophie Hicks DATE OF : 1965 ADMISSION DATE: 08/18/2023 3:06 AM TODAY'S DATE: 08/19/2023 Subjective Urology following for gross hematuria. No acute events overnight. Patient reports one episode of hematuria and catheter irrigated with return of blood clots (confirmed per nursing documentation). Since this event the catheter has been draining yellow urine. He reports intermittent penile pain secondary to conte catheter. Denies fever/chills, flank pain, abdominal pain, dysuria, or catheter malfunction. The RN just irrigated the catheter without evidenceof hematuria or clots. No constipation or loss of appetite. Afebrile, VSS. Objective VS: BP 153/91 Pulse 72 Temp 36.5 C (97.7 F) (Temporal) Resp 18 Ht 6' 1 (1.854 m) Wt 260 lb (118 kg) SpO2 96% BMI 34.30 kg/m I & O - 24hr: Intake/Output Summary (Last 24 hours) at 08/19/2023 0846 Last data filed at 08/19/2023 0528 Gross per 24 hour Intake 1100 ml Output 1250 ml Net -150 ml Physical Exam: General: Neck: Resp: Abdomen: No acute distress Supple Normal effort Soft, rotund, non-tender, nondistended : [address]te catheter draining clear yellow urine. No evidence of gross hematuria or bloodclots. Skin: Skin color, texture, turgor normal, no rashes or lesions Conte is draining clear yellow urine (Grade I as below) Labs and Imaging Studies Labs: CBC: Recent Labs 08/17/23204708/18/23 0331 08/19/23 0235 WBC 9.4 12.5* 6.6 HGB 13.7 14.3 13.2 HCT 40.6 43.0 39.5* MCV 88.1 88.1 88.6 PLT 102* 110* 98* BMP: Recent Labs 08/17/23204708/18/23 0331 08/19/23 0235 NA 140 141 140 K 4.2 4.1 3.8 CL 105 106 104 CO2 26 23 27 BUN 18 20 17 CREATININE 1.78* 1.57* 1.21 U/A: No results found for: NITRITE, LEUKOCYTESUR, PHUR, BACTERIA, SPECGRAV, BLOODU, GLUCOSEU, KETONESU Lab Results Component Value Date COLORU Yellow 08/17/2023 CLARITYU Slightly Cloudy (A) 08/17/2023 GLUCOSEUR neg 08/08/2020 BILIRUBINUR Negative 12/17/2021 KETONESU Negative 08/17/2023 SPECGRAV >=1.030 08/08/2020 RBCUR trace-intact 08/08/2020 PHUR 7.0 08/08/2020 PROTUR 300 (A) 08/17/2023 UROBILINOGEN Normal 08/17/2023 LEUKOCYTESUR Negative 12/17/2021 NITRITE neg 08/08/2020 Urine Culture: No components found for: LABURIN Blood Culture: n/a Imaging Studies: CT abdomen pelvis wo IV contrast Narrative: Patient Name: SOPHIE HICKS : 1965 Exam Date/Time: 08/18/2023 04:02 Procedure: CT ABDOMEN PELVIS WO IV CONTRAST [facility] Reason For Exam: Abdominal pain, acute, nonlocalized EXAMINATION: CT of the abdomen and pelvis without contrast. EXAM DATE & TIME: 08/18/2023 4:02 AM EDT INDICATION: Abdominal pain, acute, nonlocalized ADDITIONAL INFORMATION: 57-year-old male with acute abdominal pain presents for evaluation COMPARISON: CT abdomen pelvis dated 04/10/2023 LIMITATIONS: Evaluation of the vasculature as well as the solid and hollow viscera is limited due to the lack of intravenous and oral contrast. TECHNIQUE: Contiguous multiplanar 3 mm images were obtained from the levels of the lung bases through the pelvis without contrast. Images were reformatted in coronal and sagittal projections using the raw CT data and were interpreted in conjunction with the axial images to render the findings listed below. Dose reduction was employed with automated exposure control. FINDINGS: Included images of the lower thorax: No focal lung consolidation or pleural effusion. There is bibasilar scarring/atelectasis. Hepatobiliary: Unremarkable liver without biliary dilation evident. Gallbladder appears normal. Spleen: Unremarkable. Pancreas: There is fatty atrophy of the pancreas. Adrenal glands: Unremarkable. Kidneys, ureters and bladder: No hydronephrosis or nephrolithiasis. A Conte catheter is present within the urinary bladder. Abdominal and pelvic vasculature: Unremarkable. Gastrointestinal: The patient is status post sleeve gastrectomy. No evidence of bowel obstruction. No pericecal inflammation to suggest acute appendicitis. Peritoneum, retroperitoneum and mesentery: No free fluid or free air. Lymph nodes: No abdominal or pelvic lymphadenopathy is evident. 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 Visualized musculoskeletal structures: No acute fracture or destructive osseous lesion is identified. Impression: No acute process. Chronic findings as above. Report Dictated on Electronically Signed By: Rohan Michael MD Electronically Signed Date/Time: 08/18/2023 4:17 AM EDT Assessment and Plan ASSESMENT: This is a 57 year male with urologic complaint of gross hematuria. Known to urology for history of BPH, lower urinary tract symptoms, and status [place] [address] Whittaker. PLAN: Gross hematuria appears to be resolved, no need for additional urologic intervention at this time. Maintain [address] conte catheter to straight drain, and recommend he be discharged home with this catheter for outpatient urology voiding trial/removal. Continue Q4hr manual irrigations of conte catheter. Also, continue as needed irrigations for returnof hematuria or presence of blood clots/catheter obstruction. Should hematuria remain resolved, consider stopping irrigations & discharge. Prefer hematuria be resolved for 24 hours. Urine culture negative, okay to discontinue anti microbial therapy. Urine cytology negative for high garde UC. Continue to trend BMP, creatinine 1.21 (1.57). Continue to trend CBC, WBC 6.6 (12.5) & h/h 13.2/39.5 (14.3/43.0). Pain control per primary, recommend transition to all oral pain medications. Continue Uro jet PRN for penile pain. Continue Tamsulosin. Urology to follow peripherally. Otherwise, plan to follow up outpatient for catheter removal & office visit with Dr. Coyne as scheduled. Assessment & plan discussed with the patient, RN, primary team. Please contact clinical transformation specialist urology team for questions or concerns. --Mariana Ball CNP, PLANT OPERATOR CONTROL ROOM OPERATOR on 08/19/2023 at 8:46 AM An electronic signature was used to authenticate this note. On this date 08/19/2023 I have spent 50 minutes reviewing previous notes, test results and discussingthe diagnosis and importance of compliance with the treatment plan as well as documenting on the day of the visit. documented in this [facility]05-09-2024 Note* Care Coordination - Hellen Gandara RN - 08/20/2023 8:37 AM EDT Care Managment Initial Assessment Date: 08/20/2023 Patient Name: Sophie Hicks : 1965 Patient Information Source of Information: Patient Cognition/Language: WFL - Within Functional Limits Permission given to speak with patient territory account representative/caregiver as indicated: Yes Confirmation of Payer with patient/family: Yes Payer Name: Medicare A/ B : No Confirmation of Primary Care Physician: Confirmed PCP Name: Dr. Fernandez Seen in last 2 years?: No Primary Caregiver: Self If assistance needed, confirmed caregiver ready, willing and able to care for patient at discharge:Yes Confirmed with: spouse Ellie(works fulltime at a Children's daycare)available in early am and afternoon. Living Arrangements Current Residence: House Number of Floors 1 Number of Entry Steps: (Ramp) Bed/Bath Levels: Facility: Facility Name: Plan to Return: Yes Lives with: Spouse/significant other, Extended family members (Father in law who has Alzheimers also lives with pt) Support Systems: Spouse/significant other Activities of Daily Living Ambulation: Independent (Uses walker Prn) Bathing/Dressing: Independent Elimination/Continence/Toileting: Independent Feeding: Independent Who Assists with Activities of Daily Living: spouse as needed. Pt is at baseline indep Instrumental Activities of Daily Living Prescription Coverage: Yes [facility] Medication Management: Independent Transportation/Shopping: Independent Transportation Mode: Car Needs Assistance with Transportation at Discharge: No Meal Preparation: Independent Laundry/Cleaning: Assistance Provider Laundry/Cleaning Assistance Provider Name: spouse performs Finances/Bill Paying: Independent Communication: Independent Types of Care Services/Equipment Utilized Care Services: Skilled Home Health Services Care Services Provider Name: Not currently active but pt reports having hhc services via [facility] in the past. Dialysis Type: NA Durable Medical Equipment: Walker, Wheelchair (standard or power), Shower Seat DME Provider: Owns Patient's Goal/Discharge Plan Patient expects to be discharged to: Home w [facility] for catheter management/assist Discharge Planning Actions: Continue to follow Patient's Choice Rights and [employer] and Collaborative Relationships Disclosed as Indicated for Post-Acute Care: Yes Interdisciplinary Team Engagement: Home Health Care Social Work Referral for: (Denies social concerns. Tcc did provide pt with information about adult day care facilities for his father in law.) Additional Information: Pt admitted with gross hematuria and cystitis Urology consulted and following 3 way catheter placed 24 Fr and pt will dc home w catheter Pt's iv antibiotics discontinued as urine cx negative IA completed with pt at bedside. Tcc introduced self and role. Pt reports living with spouse Ellie in a 1 story home w ramped entrance. Pt states his father in law who has Alzheimer's is currently residing with family. Pt's spouse works time piece repairer at a children's day care. Pt is otherwise independent with ADLs and IADLs. Drives but d/t medications has reportedly not driven in a while. Pt 's spouse drives, shops, performs most housekeeping and cooking. Pt denies social insecurities when asked by [facility]. Pt confirmed insurance provider is medicare w no secondary. PCP Dr. Fernandez and [facility]. Pt concerned about dc home w conte catheter and would like home care services. Tcc tasked home care to see via [facility] and will also share in rounds this am. Anticipate dc home today w [facility] spouse to transport. Hellen Gandara RN [id number] Note* Care Coordination - Hellen Gandara RN - 08/20/2023 8:37 AM EDT Care Managment Initial Assessment Date: 08/20/2023 Patient Name: Sophie Hicks : 1965 Patient Information Source of Information: Patient Cognition/Language: WFL - Within Functional Limits Permission given to speak with patient territory account representative/caregiver as indicated: Yes Confirmation of Payer with patient/family: Yes Payer Name: Medicare A/ B [place]: No Confirmation of Primary Care Physician: Confirmed PCP Name: Dr. Fernandez Seen in last 2 years?: No Primary Caregiver: Self If assistance needed, confirmed caregiver ready, willing and able to care for patient at discharge:Yes Confirmed with: spouse Ellie(works fulltime at a Children's daycare)available in early am and afternoon. Living Arrangements Current Residence: House Number of Floors 1 Number of Entry Steps: (Ramp) Bed/Bath Levels: Facility: Facility Name: Plan to Return: Yes Lives with: Spouse/significant other, Extended family members (Father in law who has Alzheimers also lives with pt) Support Systems: Spouse/significant other Activities of Daily Living Ambulation: Independent (Uses walker Prn) Bathing/Dressing: Independent Elimination/Continence/Toileting: Independent Feeding: Independent Who Assists with Activities of Daily Living: spouse as needed. Pt is at baseline indep Instrumental Activities of Daily Living Prescription Coverage: Yes [facility] Medication Management: Independent Transportation/Shopping: Independent Transportation Mode: Car Needs Assistance with Transportation at Discharge: No Meal Preparation: Independent Laundry/Cleaning: Assistance Provider Laundry/Cleaning Assistance Provider Name: spouse performs Finances/Bill Paying: Independent Communication: Independent Types of Care Services/Equipment Utilized Care Services: Skilled Home Health Services Care Services Provider Name: Not currently active but pt reports having hhc services via [facility] in the past. Dialysis Type: NA Durable Medical Equipment: Walker, Wheelchair (standard or power), Shower Seat DME Provider: Owns Patient's Goal/Discharge Plan Patient expects to be discharged to: Home w [facility] for catheter management/assist Discharge Planning Actions: Continue to follow Patient's Choice Rights and [employer] and Collaborative Relationships Disclosed as Indicated for Post-Acute Care: Yes Interdisciplinary Team Engagement: Home Health Care Social Work Referral for: (Denies social concerns. [facility] did provide pt with information about adult day care facilities for his father in law.) Additional Information: Pt admitted with gross hematuria and cystitis Urology consulted and following 3 way catheter placed 24 Fr and pt will dc home w catheter Pt's iv antibiotics discontinued as urine cx negative IA completed with pt at bedside. [facility] introduced self and role. Pt reports living with spouse Ellie in a 1 story home w ramped entrance. Pt states his father in law who has Alzheimer's is currently residing with family. Pt's spouse works time piece repairer at a children's day care. Pt is otherwise independent with ADLs and IADLs. Drives but d/t medications has reportedly not driven in a while. Pt 's spouse drives, shops, performs most housekeeping and cooking. Pt denies social insecurities when asked by [facility]. Pt confirmed insurance provider is medicare w no secondary. PCP Dr. Fernandez and [facility]. Pt concerned about dc home w conte catheter and would like home care services. Tcc tasked home care to see via [facility] and will also share in rounds this am. Anticipate dc home today w [facility] spouse to transport. Hellen Gandara RN [facility] [id number] Plan of care note* Care Plan - Shonda Umanzor RN - 08/19/2023 3:38 AM EDT Problem: Pain - Adult Goal: Verbalizes/displays adequate comfort level or baseline comfort level Outcome: Progressing Problem: Safety - Adult Goal: Free from fall injury Outcome: Progressing Problem: Discharge Planning Goal: Discharge to home or other facility with appropriate resources Outcome: Progressing Problem: Chronic Conditions and Co-morbidities Goal: Patient's chronic conditions and co-morbidity symptoms are monitored and maintained or improved Outcome: Progressing The patient is Moderately Stable - Low risk of patient condition declining or worsening The patient's goals for the shift include comfort The clinical goals for the shift include remain safe Over the shift, the patient did not make progress toward the following goals. Barriers to progression include decrease rest and discomfort. Recommendations to address these barriers include medications per MAR, provide a restful environment. [facility] [id number] Note* Significant Event - Yadiel Boss MD - 08/18/2023 12:50 PM EDT Seen and examined. Chart/labs/tests reviewed. Continue antibiotics/conte and follow up urine cx. Please see H&P done by Dr Dunlap earlier today for complete details. [facility] [id number] Note* Significant Event - Yadiel Boss MD - 08/18/2023 12:50 PM EDT Seen and examined. Chart/labs/tests reviewed. Continue antibiotics/conte and follow up urine cx. Please see H&P done by Dr Dunlap earlier today for complete details. [id number] Note* Treatment Plan - GREG Jackson NP - 08/18/2023 12:32 PM EDT Images from the original note were not included. Urology notified that patient's urine returned to merlot in color, with inability to irrigate foleycatheter. Due to return of gross hematuria grade V, a 3 way conte catheter was inserted upon removal of prior16 fr catheter. Patient tolerate well, return of initially blood grade IV urine without clots, thenimmediately yellow. Hand irrigations performed, 500 mL, and urine remained clear without presence of blood clots. Start Q4hr hand irrigations (see orders), and notify urology if hematuria or clots return. [id number] Note* Treatment Plan - GREG Jackson NP - 08/18/2023 12:32 PM EDT Images from the original note were not included. Urology notified that patient's urine returned to merlot in color, with inability to irrigate foleycatheter. Due to return of gross hematuria grade V, a 3 way conte catheter was inserted upon removal of prior16 fr catheter. Patient tolerate well, return of initially blood grade IV urine without clots, thenimmediately yellow. Hand irrigations performed, 500 mL, and urine remained clear without presence of blood clots. Start Q4hr hand irrigations (see orders), and notify urology if hematuria or clots return. [facility] [id number] Procedure note* GREG Jackson NP - 08/18/2023 10:12 AM EDTAssociated Order(s): Bladder Catheterization Post-Procedure Diagnose(s): Hematuria Bladder Catheterization Date/Time: 08/18/2023 10:13 AM Performed by: GREG Jackson NP Authorized by: GREG Jackson NP Procedure Details Procedure: bladder irrigation Catheter size: 16 Fr [facility]atheter [facility] by: [facility] Urine characteristics: clear and yellow Volume of irrigation used (mL): 400 Clots present: no Appearance of urine after irrigation: clear Post-Procedure Details Outcome: patient tolerated procedure well with no complications [facility] [id number] Procedure note* GREG Jackson NP - 08/18/2023 10:12 AM EDTAssociated Order(s): Bladder Catheterization Post-Procedure Diagnose(s): Hematuria Bladder Catheterization Date/Time: 08/18/2023 10:13 AM Performed by: GREG Jackson NP Authorized by: GREG Jackson NP Procedure Details Procedure: bladder irrigation Catheter size: 16 Fr Catheter [facility]: [facility] Urine characteristics: clear and yellow Volume of irrigation used (mL): 400 Clots present: no Appearance of urine after irrigation: clear Post-Procedure Details Outcome: patient tolerated procedure well with no complications documented in this [facility]05-07-2024 Consult note* GREG Jackson NP - 08/18/2023 9:22 AM EDT Images from the original note were not included. GREG Jackson NP 08/18/2023 at 9:23 AM [facility] Urology Inpatient Consultation PATIENT NAME: Sophie Hicks DATE OF : 1965 ADMISSION DATE: 08/18/2023 3:06 AM TODAY'S DATE: 08/18/2023 Consultation requested by: Dr. Boss. Reason for Consult: Gross hematuria. IMPRESSION: 57 year old male with urologic complaint of gross hematuria and concern for acute cystitis. Past urologic history of BPH, and status post Urolift in 2020. PLAN No acute urologic intervention warranted at this time as gross hematuria resolved. Maintain 16 fr conte catheter to straight drain. 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 Reviewed CT scan findings, no evidence of acute process. Reviewed grossly infected urinalysis, urine culture & sensitivity pending. Likely cystitis is origin of hematuria. Continue broad spectrum antibiotics (Ceftriaxone) for the time being. Urine cytology now. Continue to trend CMP, creatinine 1.57 (1.78, ~1.13). Continue to trend CBC, WBC 12.5 (9.4). Start as needed uro jet for urethral pain and catheter discomfort. Continue Tamsulosin. Vital signs per nursing protocol. Urology to follow to ensure resolution of hematuria & for urine culture/cytology findings. Assessment & plan discussed with patient, RN, primary team, and urologist. Thank you for this consultation and allow for participation in this patient's care. Please call /page with questions concerns or changes in patient's urologic status. Mariana Ball, NASRIN, PLANT OPERATOR CONTROL ROOM OPERATOR [facility] Urology Office: [phone] 08/18/23 at 9:23 AM An electronic signature was used to authenticate this note. HISTORY OF PRESENT ILLNESS: Mr. Hicks is a 57 y.o. male being seen for gross hematuria. Past urologic history BPH, lower urinary tract symptoms, and history of urolift [place] [address] Whittaker. He had cystoscopy 08/10/[address] Coyne revealing bilobar BPH & moderate trabeculation. Past medical history as below. Patient presented to [facility] ED yesterday evening with acute onset gross hematuria (merlot in color), dysuria, urinary urgency, and urinary dribbling with episodes of incontinence. A conte catheter was inserted and bladder irrigation performed, due to urine clearing of blood he was discharged home. Returned a second time overnight to [facility] ED due to return of merlot colored urine and abdominal pain, decision to admit to medicine team. Patient unable to tolerate placement of 3 way catheter, nursing staff placed [address] abdomen & pelvis reveals no acute process, negative for calculus, hydronephrosis, mass, and conte catheter in urinary bladder. Urinalysis 500 leukocytes, >100 RBCs, 26-50 WBCs. Creatinine 1.57 (1.78, ~1.13). WBC 12.5 (9.4) & hemoglobin/hematocrit 14.3/43.0 (13.7/40.6). Upon evaluation patient is fair, reports his hematuria is improved and abdominal pain resolved. Conte catheter is causing penile discomfort. He denies fever/chills, flank pain, nausea/vomiting, or catheter malfunction. Afebrile, VSS. He does not utilize anti-coagulants, denies prior tobacco use, or family history of urologic cancer. Review of Systems: All pertinent positives and negatives per HPI as stated above. Past Medical History: Diagnosis Date Abdominal pain Atrial fibrillation (HCC) Back pain Benign essential HTN 01/29/2015 Blood circulation, collateral CAD (coronary artery disease) mild - dx on cath - neg stress Cerebral artery occlusion with cerebral infarction (HCC) Chronic kidney disease COPD (chronic obstructive pulmonary disease) (HCC) COVID-19 05/03 COVID-19 vaccine series completed 09/25/2020 Moderna COVID-19 vaccine series completed 12/04/2020 BOOSTER CS (cervical spondylosis) 12/25/2004 CERVICAL SPINE DJD Difficulty sleeping Dizziness GERD (gastroesophageal reflux disease) History of colonic polyps 06/21/2013 repeat 2019 Hyperlipidemia Insomnia 08/15/2014 Joint pain, hip Joint pain, knee Memory difficulties Muscle weakness Peripheral polyneuropathy 09/30/2020 Shortness of breath at rest Sleep apnea Snoring SOBOE (shortness of breath on exertion) Type 2 diabetes mellitus (HCC) 03/19/2021 Past Surgical History: Procedure Laterality Date APPENDECTOMY BARIATRIC SURGERY 12/03/2021 Dr. Trevino CARDIAC CATHETERIZATION 12/17/2013 NORMAL CORONARY ARTERIES AND LVEF. COLONOSCOPY COLONOSCOPY 2020 CYSTOSCOPY 10/26/2020 CYSTOSCOPY 11/19/2020 EGD (HISTORICAL) 03/02/2023 NECK SURGERY Posterior cervical fusion ROTATOR CUFF REPAIR Bilateral UPPER GASTROINTESTINAL ENDOSCOPY 01/24/2021 Dr. Cabello Current Medications: Current Outpatient Medications Medication Instructions Advair Diskus 250-50 MCG/ACT aerosol powder INHALE 1 PUFF INTO THE LUNGS TWICE DAILY ALPRAZolam (XANAX) 1 mg, Oral, Nightly PRN aspirin 81 mg, Daily aspirin 81 mg, Oral, Daily atorvastatin (LIPITOR) 80 mg, Oral, Daily bacitracin 500 UNIT/GM ointment APPLY TOPICALLY TO AFFECTED AREAS twice a day baclofen (LIORESAL) 10 mg, Oral, 2 times daily bumetanide (BUMEX) 1 mg, Oral, 2 times daily buPROPion XL (WELLBUTRIN XL) 150 mg, Oral, Daily busPIRone (BUSPAR) 10 mg, Oral, 2 times daily calcium citrate 500 mg, Oral, 3 times daily, Take 2 tablets by mouth three times daily. cephalexin (KEFLEX) 500 mg, Oral, 3 times daily cholestyramine (Questran) 4 g packet Every 24 hours Continuous Blood Gluc Sensor (NuFlick Alexandra 2 Sensor) [facility] [place]ED; CHANGE SENSOR EVERY 14 DAYS diazePAM (VALIUM) 5 mg, Oral, Once, Please take 30 minutes prior to your procedure. Diclofenac Sodium (Voltaren) 1 % gel apply 2 grams to affected area four times a day dicyclomine (BENTYL) 10 mg, Oral, 4 times daily Emollient (Aquaphor Advanced Therapy) ointment No dose, route, or frequency recorded. fluticasone (Flonase) 50 MCG/ACT nasal spray Every 24 hours furosemide (LASIX) 40 mg, Oral, Daily gabapentin (NEURONTIN) 600 mg, Oral, 3 times daily hydrOXYzine pamoate (VISTARIL) 25 mg, Oral, 2 times daily ibuprofen 600 MG tablet take 1 tablet by mouth three times a day if needed with food or milk for 10days levothyroxine (Synthroid, Levoxyl) 75 MCG tablet methocarbamol (ROBAXIN) 750 mg, Oral, Every 8 hours PRN Multiple Vitamins-Minerals (MULTIVITAMIN ADULTS 50+ PO) Oral mupirocin (Bactroban) 2 % ointment No dose, route, or frequency recorded. nystatin (Mycostatin) 815660 UNIT/GM powder Apply to affected area 3 times daily ondansetron (Zofran) 4 MG tablet take 1 tablet by mouth three times a day if needed for nausea and vomiting ondansetron ODT (Zofran-ODT) 4 MG disintegrating tablet No dose, route, or frequency recorded. oxyCODONE-acetaminophen (Percocet) 5-325 MG tablet 1 tablet, Oral, 2 times daily pantoprazole (PROTONIX) 40 mg, Oral, Daily PARoxetine (PAXIL) 20 mg, Oral, Every morning potassium chloride CR (Klor-Con M20) 20 MEQ ER tablet PRN promethazine (PHENERGAN) 12.5 mg, Oral senna-docusate sodium (Senokot-S) 8.6-50 MG tablet 1-2 tab(s) sertraline (ZOLOFT) 50 mg, Oral, Daily sildenafil (Revatio) 20 MG tablet take 1-5 tablets BY MOUTH NEEDED tadalafil (CIALIS) 5 mg, Oral, Daily tamsulosin (Flomax) 0.4 MG 24 hr capsule Flomax 0.4mg take 2 pills daily, 30 minutes after meal tamsulosin (FLOMAX) 0.4 mg, Oral, Daily tiZANidine (Zanaflex) 2 MG tablet Every 12 hours torsemide (DEMADEX) 20 mg, Oral, Daily traMADol ER (ULTRAM-ER) 300 mg, Oral, 3 times daily triamcinolone (Kenalog) 0.1 % cream APPLY TO THE AFFECTED AREAS OF LOWER LEGS TWICE DAILY FOR 2 WEEKS... (REFER TO PRESCRIPTION NOTES). Ventolin HFA 108 (90 Base) MCG/ACT inhaler 2 puffs, Inhalation, Every 6 hours PRN zinc gluconate 50 MG tablet 1 tablet, Oral, Daily Allergies: Iodinated contrast media and Nsaids Social History Socioeconomic History Marital status: Tobacco Use Smoking status: Never Smokeless tobacco: Never Substance and Sexual Activity Alcohol use: Never Drug use: No Family History Problem Relation Name Age of Onset Osteoarthritis Mother Lung cancer Mother smoker Coronary artery disease Other PHYSICAL EXAM: VITALS: BP (!) 150/84 (BP Location: Left arm, Patient Position: Lying) Pulse 62 Temp 36.3 C (97.4 F) (Temporal) Resp 16 Ht 6' 1 (1.854 m) Wt 260 lb (118 kg) SpO2 98% BMI 34.30 kg/m Physical Exam Vitals and nursing note reviewed. Constitutional: Appearance: Normal appearance. Abdominal: General: There is no distension. Palpations: There is no mass. Tenderness: There is no abdominal tenderness. There is no right CVA tenderness or left CVA tenderness. Genitourinary: Comments: #16 fr conte catheter draining clear eagle Neurological: Mental Status: He is alert. 24HR INTAKE/OUTPUT: I/O last 3 completed shifts: In: - (0 mL/kg) Out: 75 (0.6 mL/kg) [Urine:75 (0 mL/kg/hr)] Weight: 117.9 kg Labs: CBC: Recent Labs 08/17/23204708/18/23330 WBC 9.4 12.5* HGB 13.7 14.3 HCT 40.6 43.0 PLT 102* 110* Lactic Acid: No results found for: LACTATE BMP: Recent Labs 08/17/23204708/18/23330 NA 140 141 K 4.2 4.1 CL 105 106 CO2 26 23 BUN 18 20 CREATININE 1.78* 1.57* GLUCOSE 103* 132* Hepatic: Recent Labs 08/18/23330 AST 28 ALT 17 BILITOT 0.9 ALKPHOS 71 Mag: No results for input(s): MG in the last 72 hours. Phos: No results for input(s): PHOS in the last 72 hours. INR: No results for input(s): INR in the last 72 hours. Urine Culture: No results found for: URINECX Radiology Review: CT abdomen pelvis wo IV contrast Narrative: [facility] 1965 [id number] Exam Date/Time: 08/18/2023 04:02 Procedure: CT ABDOMEN PELVIS WO IV CONTRAST Ordering Provider: [facility] Reason For Exam: Abdominal pain, acute, nonlocalized EXAMINATION: CT of the abdomen and pelvis without contrast. EXAM DATE & TIME: 08/18/2023 4:02 AM EDT INDICATION: Abdominal pain, acute, nonlocalized ADDITIONAL INFORMATION: 57-year-old male with acute abdominal pain presents for evaluation COMPARISON: CT abdomen pelvis dated 04/10/2023 LIMITATIONS: Evaluation of the vasculature as well as the solid and hollow viscera is limited due to the lack of intravenous and oral contrast. TECHNIQUE: Contiguous multiplanar 3 mm images were obtained from the levels of the lung bases through the pelvis without contrast. Images were reformatted in coronal and sagittal projections using the raw CT data and were interpreted in conjunction with the axial images to render the findings listed below. Dose reduction was employed with automated exposure control. FINDINGS: Included images of the lower thorax: No focal lung consolidation or pleural effusion. There is bibasilar scarring/atelectasis. Hepatobiliary: Unremarkable liver without biliary dilation evident. Gallbladder appears normal. Spleen: Unremarkable. Pancreas: There is fatty atrophy of the pancreas. Adrenal glands: Unremarkable. Kidneys, ureters and bladder: No hydronephrosis or nephrolithiasis. A Conte catheter is present within the urinary bladder. Abdominal and pelvic vasculature: Unremarkable. Gastrointestinal: The patient is status post sleeve gastrectomy. No evidence of bowel obstruction. No pericecal inflammation to suggest acute appendicitis. Peritoneum, retroperitoneum and mesentery: No free fluid or free air. Lymph nodes: No abdominal or pelvic lymphadenopathy is evident. 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 Visualized musculoskeletal structures: No acute fracture or destructive osseous lesion is identified. Impression: No acute process. Chronic findings as above. Report Dictated on Electronically Signed By: Rohan Michael MD Electronically Signed Date/Time: 08/18/2023 4:17 AM EDT Please note that portions of this chart were dictated using Zouxiu electronic voice recognition software. It is possible that typos and/or omissions and/or substitutions of words and/or phrases may exist, which may alter the intended meaning of the dictating provider. On this date 08/18/2023 I have spent 75 minutes reviewing previous notes, test results and discussingthe diagnosis and importance of compliance with the treatment plan as well as documenting on the day of the visit. [id number] Consult note* GREG Jackson NP - 08/18/2023 9:22 AM EDT Images from the original note were not included. GREG Jackson NP 08/18/2023 at 9:23 AM [facility] Urology Inpatient Consultation PATIENT NAME: Sophie Hicks DATE OF : 1965 ADMISSION DATE: 08/18/2023 3:06 AM TODAY'S DATE: 08/18/2023 Consultation requested by: Dr. Boss. Reason for Consult: Gross hematuria. IMPRESSION: 57 year old male with urologic complaint of gross hematuria and concern for acute cystitis. Past urologic history of BPH, and status post Urolift in 2020. PLAN No acute urologic intervention warranted at this time as gross hematuria resolved. Maintain 16 fr conte catheter to straight drain. 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 Reviewed CT scan findings, no evidence of acute process. Reviewed grossly infected urinalysis, urine culture & sensitivity pending. Likely cystitis is origin of hematuria. Continue broad spectrum antibiotics (Ceftriaxone) for the time being. Urine cytology now. Continue to trend CMP, creatinine 1.57 (1.78, ~1.13). Continue to trend CBC, WBC 12.5 (9.4). Start as needed uro jet for urethral pain and catheter discomfort. Continue Tamsulosin. Vital signs per nursing protocol. Urology to follow to ensure resolution of hematuria & for urine culture/cytology findings. Assessment & plan discussed with patient, RN, primary team, and urologist. Thank you for this consultation and allow for participation in this patient's care. Please call /page with questions concerns or changes in patient's urologic status. Mariana Ball CNP, [facility] Urology Office: [phone] 08/18/23 at 9:23 AM An electronic signature was used to authenticate this note. HISTORY OF PRESENT ILLNESS: Mr. Hicks is a 57 y.o. male being seen for gross hematuria. Past urologic history BPH, lower urinary tract symptoms, and history of urolift [place] [address] Whittaker. He had cystoscopy 08/10/[address] Coyne revealing bilobar BPH & moderate trabeculation. Past medical history as below. Patient presented to [facility] ED yesterday evening with acute onset gross hematuria (merlot in color), dysuria, urinary urgency, and urinary dribbling with episodes of incontinence. A conte catheter was inserted and bladder irrigation performed, due to urine clearing of blood he was discharged home. Returned a second time overnight to [facility] ED due to return of merlot colored urine and abdominal pain, decision to admit to medicine team. Patient unable to tolerate placement of 3 way catheter, nursing staff placed [address] abdomen & pelvis reveals no acute process, negative for calculus, hydronephrosis, mass, and conte catheter in urinary bladder. Urinalysis 500 leukocytes, >100 RBCs, 26-50 WBCs. Creatinine 1.57 (1.78, ~1.13). WBC 12.5 (9.4) & hemoglobin/hematocrit 14.3/43.0 (13.7/40.6). Upon evaluation patient is fair, reports his hematuria is improved and abdominal pain resolved. Conte catheter is causing penile discomfort. He denies fever/chills, flank pain, nausea/vomiting, or catheter malfunction. Afebrile, VSS. He does not utilize anti-coagulants, denies prior tobacco use, or family history of urologic cancer. Review of Systems: All pertinent positives and negatives per HPI as stated above. Past Medical History: Diagnosis Date Abdominal pain Atrial fibrillation (HCC) Back pain Benign essential HTN 01/29/2015 Blood circulation, collateral CAD (coronary artery disease) mild - dx on cath - neg stress Cerebral artery occlusion with cerebral infarction (HCC) Chronic kidney disease COPD (chronic obstructive pulmonary disease) (HCC) COVID-19 05/03 COVID-19 vaccine series completed 09/25/2020 Moderna COVID-19 vaccine series completed 12/04/2020 BOOSTER CS (cervical spondylosis) 12/25/2004 CERVICAL SPINE DJD Difficulty sleeping Dizziness GERD (gastroesophageal reflux disease) History of colonic polyps 06/21/2013 repeat 2019 Hyperlipidemia Insomnia 08/15/2014 Joint pain, hip Joint pain, knee Memory difficulties Muscle weakness Peripheral polyneuropathy 09/30/2020 Shortness of breath at rest Sleep apnea Snoring SOBOE (shortness of breath on exertion) Type 2 diabetes mellitus (HCC) 03/19/2021 Past Surgical History: Procedure Laterality Date APPENDECTOMY BARIATRIC SURGERY 12/03/2021 Dr. Trevino CARDIAC CATHETERIZATION 12/17/2013 NORMAL CORONARY ARTERIES AND LVEF. COLONOSCOPY COLONOSCOPY 2020 CYSTOSCOPY 10/26/2020 CYSTOSCOPY 11/19/2020 EGD (HISTORICAL) 03/02/2023 NECK SURGERY Posterior cervical fusion ROTATOR CUFF REPAIR Bilateral UPPER GASTROINTESTINAL ENDOSCOPY 01/24/2021 Dr. Cabello Current Medications: Current Outpatient Medications Medication Instructions Advair Diskus 250-50 MCG/ACT aerosol powder INHALE 1 PUFF INTO THE LUNGS TWICE DAILY ALPRAZolam (XANAX) 1 mg, Oral, Nightly PRN aspirin 81 mg, Daily aspirin 81 mg, Oral, Daily atorvastatin (LIPITOR) 80 mg, Oral, Daily bacitracin 500 UNIT/GM ointment APPLY TOPICALLY TO AFFECTED AREAS twice a day baclofen (LIORESAL) 10 mg, Oral, 2 times daily bumetanide (BUMEX) 1 mg, Oral, 2 times daily buPROPion XL (WELLBUTRIN XL) 150 mg, Oral, Daily busPIRone (BUSPAR) 10 mg, Oral, 2 times daily calcium citrate 500 mg, Oral, 3 times daily, Take 2 tablets by mouth three times daily. cephalexin (KEFLEX) 500 mg, Oral, 3 times daily cholestyramine (Questran) 4 g packet Every 24 hours Continuous Blood Gluc Sensor (NuFlick Alexandra 2 Sensor) [facility] [place]; CHANGE SENSOR EVERY 14 DAYS diazePAM (VALIUM) 5 mg, Oral, Once, Please take 30 minutes prior to your procedure. Diclofenac Sodium (Voltaren) 1 % gel apply 2 grams to affected area four times a day dicyclomine (BENTYL) 10 mg, Oral, 4 times daily Emollient (Aquaphor Advanced Therapy) ointment No dose, route, or frequency recorded. fluticasone (Flonase) 50 MCG/ACT nasal spray Every 24 hours furosemide (LASIX) 40 mg, Oral, Daily gabapentin (NEURONTIN) 600 mg, Oral, 3 times daily hydrOXYzine pamoate (VISTARIL) 25 mg, Oral, 2 times daily ibuprofen 600 MG tablet take 1 tablet by mouth three times a day if needed with food or milk for 10days levothyroxine (Synthroid, Levoxyl) 75 MCG tablet methocarbamol (ROBAXIN) 750 mg, Oral, Every 8 hours PRN Multiple Vitamins-Minerals (MULTIVITAMIN ADULTS 50+ PO) Oral mupirocin (Bactroban) 2 % ointment No dose, route, or frequency recorded. nystatin (Mycostatin) 714239 UNIT/GM powder Apply to affected area 3 times daily ondansetron (Zofran) 4 MG tablet take 1 tablet by mouth three times a day if needed for nausea and vomiting ondansetron ODT (Zofran-ODT) 4 MG disintegrating tablet No dose, route, or frequency recorded. oxyCODONE-acetaminophen (Percocet) 5-325 MG tablet 1 tablet, Oral, 2 times daily pantoprazole (PROTONIX) 40 mg, Oral, Daily PARoxetine (PAXIL) 20 mg, Oral, Every morning potassium chloride CR (Klor-Con M20) 20 MEQ ER tablet PRN promethazine (PHENERGAN) 12.5 mg, Oral senna-docusate sodium (Senokot-S) 8.6-50 MG tablet 1-2 tab(s) sertraline (ZOLOFT) 50 mg, Oral, Daily sildenafil (Revatio) 20 MG tablet take 1-5 tablets BY MOUTH NEEDED tadalafil (CIALIS) 5 mg, Oral, Daily tamsulosin (Flomax) 0.4 MG 24 hr capsule Flomax 0.4mg take 2 pills daily, 30 minutes after meal tamsulosin (FLOMAX) 0.4 mg, Oral, Daily tiZANidine (Zanaflex) 2 MG tablet Every 12 hours torsemide (DEMADEX) 20 mg, Oral, Daily traMADol ER (ULTRAM-ER) 300 mg, Oral, 3 times daily triamcinolone (Kenalog) 0.1 % cream APPLY TO THE AFFECTED AREAS OF LOWER LEGS TWICE DAILY FOR 2 WEEKS... (REFER TO PRESCRIPTION NOTES). Ventolin HFA 108 (90 Base) MCG/ACT inhaler 2 puffs, Inhalation, Every 6 hours PRN zinc gluconate 50 MG tablet 1 tablet, Oral, Daily Allergies: Iodinated contrast media and Nsaids Social History Socioeconomic History Marital status: Tobacco Use Smoking status: Never Smokeless tobacco: Never Substance and Sexual Activity Alcohol use: Never Drug use: No Family History Problem Relation Name Age of Onset Osteoarthritis Mother Lung cancer Mother smoker Coronary artery disease Other PHYSICAL EXAM: VITALS: BP (!) 150/84 (BP Location: Left arm, Patient Position: Lying) Pulse 62 Temp 36.3 C (97.4 F) (Temporal) Resp 16 Ht 6' 1 (1.854 m) Wt 260 lb (118 kg) SpO2 98% BMI 34.30 kg/m Physical Exam Vitals and nursing note reviewed. Constitutional: Appearance: Normal appearance. Abdominal: General: There is no distension. Palpations: There is no mass. Tenderness: There is no abdominal tenderness. There is no right CVA tenderness or left CVA tenderness. Genitourinary: Comments: #16 fr conte catheter draining clear eagle Neurological: Mental Status: He is alert. 24HR INTAKE/OUTPUT: I/O last 3 completed shifts: In: - (0 mL/kg) Out: 75 (0.6 mL/kg) [Urine:75 (0 mL/kg/hr)] Weight: 117.9 kg Labs: CBC: Recent Labs 08/17/23204708/18/23330 WBC 9.4 12.5* HGB 13.7 14.3 HCT 40.6 43.0 PLT 102* 110* Lactic Acid: No results found for: LACTATE BMP: Recent Labs 08/17/23204708/18/23330 NA 140 141 K 4.2 4.1 CL 105 106 CO2 26 23 BUN 18 20 CREATININE 1.78* 1.57* GLUCOSE 103* 132* Hepatic: Recent Labs 08/18/23330 AST 28 ALT 17 BILITOT 0.9 ALKPHOS 71 Mag: No results for input(s): MG in the last 72 hours. Phos: No results for input(s): PHOS in the last 72 hours. INR: No results for input(s): INR in the last 72 hours. Urine Culture: No results found for: URINECX Radiology Review: CT abdomen pelvis wo IV contrast Narrative: Patient Name[facility] S[facility] 1965 [id number] Exam Date/Time: 08/18/2023 04:02 Procedure: CT ABDOMEN PELVIS WO IV CONTRAST Ordering Provider: [facility] Reason For Exam: Abdominal pain, acute, nonlocalized EXAMINATION: CT of the abdomen and pelvis without contrast. EXAM DATE & TIME: 08/18/2023 4:02 AM EDT INDICATION: Abdominal pain, acute, nonlocalized ADDITIONAL INFORMATION: 57-year-old male with acute abdominal pain presents for evaluation COMPARISON: CT abdomen pelvis dated 04/10/2023 LIMITATIONS: Evaluation of the vasculature as well as the solid and hollow viscera is limited due to the lack of intravenous and oral contrast. TECHNIQUE: Contiguous multiplanar 3 mm images were obtained from the levels of the lung bases through the pelvis without contrast. Images were reformatted in coronal and sagittal projections using the raw CT data and were interpreted in conjunction with the axial images to render the findings listed below. Dose reduction was employed with automated exposure control. FINDINGS: Included images of the lower thorax: No focal lung consolidation or pleural effusion. There is bibasilar scarring/atelectasis. Hepatobiliary: Unremarkable liver without biliary dilation evident. Gallbladder appears normal. Spleen: Unremarkable. Pancreas: There is fatty atrophy of the pancreas. Adrenal glands: Unremarkable. Kidneys, ureters and bladder: No hydronephrosis or nephrolithiasis. A Conte catheter is present within the urinary bladder. Abdominal and pelvic vasculature: Unremarkable. Gastrointestinal: The patient is status post sleeve gastrectomy. No evidence of bowel obstruction. No pericecal inflammation to suggest acute appendicitis. Peritoneum, retroperitoneum and mesentery: No free fluid or free air. Lymph nodes: No abdominal or pelvic lymphadenopathy is evident. 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 Visualized musculoskeletal structures: No acute fracture or destructive osseous lesion is identified. Impression: No acute process. Chronic findings as above. Report Dictated on Electronically Signed By: Rohan Michael MD Electronically Signed Date/Time: 08/18/2023 4:17 AM EDT Please note that portions of this chart were dictated using [employer]ou[employer] electronic voice recognition software. It is possible that typos and/or omissions and/or substitutions of words and/or phrases may exist, which may alter the intended meaning of the dictating provider. On this date 08/18/2023 I have spent 75 minutes reviewing previous notes, test results and discussingthe diagnosis and importance of compliance with the treatment plan as well as documenting on the day of the visit. documented in this [facility]05-07-2024 History and physical note* Floyd Dunlap - 08/18/2023 4:33 AM EDT Attending History and Physical Admit Date: 08/18/2023 PCP: WILIAM FERNANDEZ MD CHIEF COMPLAINT: gross hematuria Reason for Admission: gross hematuria History Obtained From: patient HISTORY OF PRESENT ILLNESS: Sophie is a 57 y.o. male with past medical history below who presents with chief complaint listed above. Seen at bedside in the ED. Lying in bed and conversing normally. Patient was in mild distress due to ongoing lower abdominal pain and discomfort. Had Conte catheter in place that was draining dark red urine. Patient was seen in the ED yesterday evening for gross hematuria. He noted that the hematuria began yesterday afternoon, started with a few drops and then he had deangelo blood in his urine stream. Had Conte catheter placed in the ED yesterday evening and was discharged home with plan to follow-up with urology in the office today. However, states that he had significantly more bloody redurine output at home along with worsening abdominal pain and thus came back to the ED. On chart review, patient has seen urology in the office multiple times recently, last visit on 08/09. Has historyof BPH, had UroLift procedure done in the past but continued to have slow stream and post titrationdribble. Had cystoscopy done on 08/09 that showed moderate bilobar BPH. Plan per urology was to increase Flomax to 2 pills/day, start Cialis 5 mg daily and follow-up for vv in 6 weeks; if no better atthat time they would consider a TURP procedure. Labs showed hemoglobin 14.3, was 13.7 yesterday evening. Platelets 110, were 102 yesterday and has history of mild thrombocytopenia. Creatinine 1.57, down from 1.78 yesterday but still above baselinearound 1.1. CT abdomen pelvis showed no hydronephrosis or nephrolithiasis, showed Conte catheter present within the urinary bladder, no other acute findings. Will admit for further evaluation and management. Past Medical History: Past Medical History: Diagnosis Date Abdominal pain Atrial fibrillation (HCC) Back pain Benign essential HTN 01/29/2015 Blood circulation, collateral CAD (coronary artery disease) mild - dx on cath - neg stress Cerebral artery occlusion with cerebral infarction (HCC) Chronic kidney disease COPD (chronic obstructive pulmonary disease) (HCC) COVID-19 05/03 COVID-19 vaccine series completed 09/25/2020 Moderna COVID-19 vaccine series completed 12/04/2020 BOOSTER CS (cervical spondylosis) 12/25/2004 CERVICAL SPINE DJD Difficulty sleeping Dizziness GERD (gastroesophageal reflux disease) History of colonic polyps 06/21/2013 repeat 2019 Hyperlipidemia Insomnia 08/15/2014 Joint pain, hip Joint pain, knee Memory difficulties Muscle weakness Peripheral polyneuropathy 09/30/2020 Shortness of breath at rest Sleep apnea Snoring SOBOE (shortness of breath on exertion) Type 2 diabetes mellitus (HCC) 03/19/2021 Past Surgical History: Past Surgical History: Procedure Laterality Date APPENDECTOMY BARIATRIC SURGERY 12/03/2021 Dr. Trevino CARDIAC CATHETERIZATION 12/17/2013 NORMAL CORONARY ARTERIES AND LVEF. COLONOSCOPY COLONOSCOPY 2020 CYSTOSCOPY 10/26/2020 CYSTOSCOPY 11/19/2020 EGD (HISTORICAL) 03/02/2023 NECK SURGERY Posterior cervical fusion ROTATOR CUFF REPAIR Bilateral UPPER GASTROINTESTINAL ENDOSCOPY 01/24/2021 Dr. Cabello Social History: Social History Socioeconomic History Marital status: Spouse name: Not on file Number of children: Not on file Years of education: Not on file Highest education level: Not on file Occupational History Not on file Tobacco Use Smoking status: Never Smokeless tobacco: Never Substance and Sexual Activity Alcohol use: Never Drug use: No Sexual activity: Not on file Other Topics Concern Not on file Social History Narrative Not on file Social Determinants of Health Financial Resource Strain: Not on file Food Insecurity: Not on file Transportation Needs: Not on file Physical Activity: Not on file Stress: Not on file Social Connections: Not on file Intimate Partner Violence: Not on file Housing Stability: Not on file Family History: Family History Problem Relation Name Age of Onset Osteoarthritis Mother Lung cancer Mother smoker Coronary artery disease Other Medications Prior to Admission: Current Facility-Administered Medications on File Prior to Encounter Medication Dose Route Frequency Provider Last Rate Last Admin [COMPLETED] cefTRIAXone (Rocephin) 1,000 mg in sodium chloride 0.9 % 50 mL IVPB Mini-Bag Plus 1,000mg IntraVENous Once Delai Zepeda MD Stopped at 08/17/232121 [COMPLETED] LORazepam (Ativan) injection 1 mg 1 mg IntraVENous Once PRN Delia Zepeda MD 1 mg at 08/17/232127 Current Outpatient Medications on File Prior to Encounter Medication Sig Dispense Refill Advair Diskus 250-50 MCG/ACT aerosol powder INHALE 1 PUFF INTO THE LUNGS TWICE DAILY 1 each 10 ALPRAZolam (Xanax) 1 MG tablet Take 1 mg by mouth every 24 hours as needed. aspirin 81 MG chewable tablet Chew 81 mg daily. aspirin 81 MG EC tablet 81 mg daily. atorvastatin (Lipitor) 80 MG tablet Take 80 mg by mouth daily. bacitracin 500 UNIT/GM ointment APPLY TOPICALLY TO AFFECTED AREAS twice a day baclofen (Lioresal) 10 MG tablet Take 10 mg by mouth 2 times daily. bumetanide (Bumex) 1 MG tablet Take 1 mg by mouth in the morning and 1 mg before bedtime. buPROPion XL (Wellbutrin XL) 150 MG 24 hr tablet Take 150 mg by mouth daily. busPIRone (Buspar) 10 MG tablet Take 10 mg by mouth 2 times daily. calcium citrate 250 MG tablet Take 2 tablets (500 mg) by mouth in the morning and 2 tablets (500 mg) at noon and 2 tablets (500 mg) before bedtime. Take 2 tablets by mouth three times daily.. 180 tablet 3 cephalexin (Keflex) 500 MG capsule Take 1 capsule (500 mg) by mouth 3 times daily for 7 days. 21 capsule 0 cholestyramine (Questran) 4 g packet Every 24 hours. Continuous Blood Gluc Sensor (NuFlick Alexandra 2 Sensor) [facility] [place]; CHANGE SENSOR EVERY 14 DAYS diazePAM (Valium) 5 MG tablet Take 1 tablet (5 mg) by mouth Once for 1 dose. Please take 30 minutesprior to your procedure. 1 tablet 0 Diclofenac Sodium (Voltaren) 1 % gel apply 2 grams to affected area four times a day dicyclomine (Bentyl) 10 MG capsule Take 10 mg by mouth in the morning and 10 mg at noon and 10 mg in the evening and 10 mg before bedtime. Emollient (Aquaphor Advanced Therapy) ointment fluticasone (Flonase) 50 MCG/ACT nasal spray Every 24 hours. furosemide (Lasix) 40 MG tablet Take 40 mg by mouth daily. gabapentin (Neurontin) 300 MG capsule Take 600 mg by mouth 3 times daily. hydrOXYzine pamoate (Vistaril) 25 MG capsule Take 25 mg by mouth in the morning and 25 mg before bedtime. ibuprofen 600 MG tablet take 1 tablet by mouth three times a day if needed with food or milk for 10days levothyroxine (Synthroid, Levoxyl) 75 MCG tablet methocarbamol (Robaxin) 500 MG tablet Take 1.5 tablets (750 mg) by mouth every 8 hours as needed for muscle spasms for up to 5 days. 20 tablet 0 Multiple Vitamins-Minerals (MULTIVITAMIN ADULTS 50+ PO) Take by mouth. mupirocin (Bactroban) 2 % ointment nystatin (Mycostatin) 995782 UNIT/GM powder Apply to affected area 3 times daily 30 g 0 ondansetron (Zofran) 4 MG tablet take 1 tablet by mouth three times a day if needed for nausea and vomiting ondansetron ODT (Zofran-ODT) 4 MG disintegrating tablet oxyCODONE-acetaminophen (Percocet) 5-325 MG tablet Take 1 tablet by mouth 2 times daily. pantoprazole (ProtoNix) 40 MG EC tablet take 1 tablet by mouth once daily 120 tablet 0 PARoxetine (Paxil) 20 MG tablet Take 20 mg by mouth every morning. potassium chloride CR (Klor-Con M20) 20 MEQ ER tablet as needed. promethazine (Phenergan) 12.5 MG tablet Take 12.5 mg by mouth. senna-docusate sodium (Senokot-S) 8.6-50 MG tablet 1-2 tab(s) sertraline (Zoloft) 50 MG tablet Take 50 mg by mouth daily. sildenafil (Revatio) 20 MG tablet take 1-5 tablets BY MOUTH NEEDED tadalafil (Cialis) 5 MG tablet Take 1 tablet (5 mg) by mouth daily. 30 tablet 11 tamsulosin (Flomax) 0.4 MG 24 hr capsule Take 1 capsule (0.4 mg) by mouth daily. 90 capsule 3 tamsulosin (Flomax) 0.4 MG 24 hr capsule Flomax 0.4mg take 2 pills daily, 30 minutes after meal 180capsule 3 tiZANidine (Zanaflex) 2 MG tablet every 12 hours. torsemide (Demadex) 20 MG tablet Take 20 mg by mouth daily. traMADol ER (Ultram-ER) 300 MG 24 hr tablet Take 300 mg by mouth 3 times daily. triamcinolone (Kenalog) 0.1 % cream APPLY TO THE AFFECTED AREAS OF LOWER LEGS TWICE DAILY FOR 2 WEEKS... (REFER TO PRESCRIPTION NOTES). Ventolin HFA 108 (90 Base) MCG/ACT inhaler Inhale 2 puffs every 6 hours as needed. zinc gluconate 50 MG tablet Take 1 tablet by mouth daily. Allergies: Allergies Allergen Reactions Iodinated Contrast Media Other reaction(s): Kidney disease Nsaids Other reaction(s): Kidney disease Due to Kidney Disease REVIEW OF SYSTEMS: Constitutional: Negative for fever, chills, activity change and unexpected weight change. HEENT: Negative for congestion, postnasal drip and sneezing. Eyes: Negative for itching and visual disturbance. Respiratory: Negative for apnea, cough, choking, chest tightness, shortness of breath, wheezing andstridor. Cardiovascular: Negative for chest pain. Gastrointestinal: Negative for nausea, vomiting, abdominal pain, diarrhea and blood in stool. Genitourinary: Positive for gross hematuria, lower abdominal/suprapubic pain. Negative for flank pain. Musculoskeletal: Negative for myalgias and joint swelling. Skin: Negative for rash. Neurological: Negative for dizziness, tremors, seizures, syncope, facial asymmetry, speech difficulty, weakness, numbness and headaches. Hematological: Negative for adenopathy. Psychiatric/Behavioral: Negative for suicidal ideas, behavioral problems, self- injury and dysphoricmood. Vitals: BP (!) 160/97 Pulse 100 Temp 36.3 C (97.4 F) (Temporal) Resp 20 Ht 6' 1 (1.854 m) Wt 260lb (118 kg) SpO2 99% BMI 34.30 kg/m BMI Classification: Obese (BMI 30.0-39.9) Pulse Ox: SpO2 Av.4 % Min: 96 % Max: 99 % Supplemental O2: PHYSICAL EXAM: Physical Exam Constitutional: Appearance: He is obese. Comments: Laying comfortably, conversing normally, mild distress due to ongoing lower abdominal/suprapubic discomfort. HENT: Mouth/Throat: Mouth: Mucous membranes are moist. Pharynx: Oropharynx is clear. Cardiovascular: Rate and Rhythm: Normal rate and regular rhythm. Pulses: Normal pulses. Heart sounds: Normal heart sounds. Pulmonary: Effort: Pulmonary effort is normal. Breath sounds: Normal breath sounds. Abdominal: General: Abdomen is flat. There is no distension. Palpations: Abdomen is soft. Tenderness: There is abdominal tenderness (Mild tenderness to palpation in the suprapubic region). There is no right CVA tenderness, left CVA tenderness, guarding or rebound. Musculoskeletal: General: Normal range of motion. Skin: General: Skin is warm and dry. Neurological: Mental Status: He is alert. Psychiatric: Mood and Affect: Mood normal. Behavior: Behavior normal. Thought Content: Thought content normal. DATA: CBC: Recent Labs 08/17/23204708/18/23 0331 WBC 9.4 12.5* RBC 4.61 4.88 HGB 13.7 14.3 HCT 40.6 43.0 MCV 88.1 88.1 RDW 13.2 13.1 PLT 102* 110* BMP: Recent Labs 08/17/23204708/18/23 0331 NA 140 141 K 4.2 4.1 CL 105 106 CO2 26 23 BUN 18 20 CREATININE 1.78* 1.57* GLUCOSE 103* 132* CALCIUM 8.7 8.8 ANIONGAP 9 12 LIVER PROFILE: Recent Labs 08/18/23 0331 AST 28 ALT 17 BILITOT 0.9 ALKPHOS 71 PROT 7.4 PT/INR: No results for input(s): PROTIME, INR in the last 72 hours. CARDIAC ENZYMES: No results for input(s): TROPONINI in the last 72 hours. Procalcitonin: No results found for: PROCAL Urine Culture: No results found for this or any previous visit. COVID-19 PCR: No results for input(s): COVID19 in the last 72 hours. I reviewed: [x] laboratory results [x] radiographic results At the time of today's encounter. Pt was advised of the results. Data: (CAT1) Reviewed 1 notes from different specialty or health system (each=1). (CAT1) Reviewed 3 or more labs/studies ordered by another provider not previously counted (each=1, panels count as 1). (CAT1) Ordered 3 or more new labs and/or studies (each=1, panels count as 1). (CAT2) CT of abdomen pelvis without contrast reviewed & showed no hydronephrosis or nephrolithiasis, no acute findings. as interpreted by me. (CAT3) Discussed with ED provider, Dr. Chance, regarding patient's eval & mgmt thus far, and agreewith the plan for hospitalization. (LOW: 2x CAT1 or independent historian MOD: 3x CAT1 or 1x CAT3 EXTENSIVE: 3x CAT1 and 1x CAT3) Assessment Discussed management with the ED provider and agree with hospitalization. Acute, acute on chronic, unstable/uncontrolled chronic problems/diagnoses: Gross hematuria with lower abdominal pain, history of BPH with recent instrumentation, concern for UTI-urology consulted. Conte catheter in place, were unable to place three-way Conte for CBI in the ED due to severe pain with placement. Holding home aspirin. Hemoglobin stable at baseline 13-14. UA i nfectious appearing, started on ceftriaxone, follow-up urine culture. IV Dilaudid and p.o. Percocetas needed for pain control. MEGAN-presumed prerenal. trend daily BMP and urine output. Stable chronic problems affecting care, new non-acute diagnoses: Extensive medication regimen-Home med list extensive and with multiple conflicting medications listed. For example, has both sertraline and paroxetine on the list. Also has Lasix, Bumex and torsemidelisted. Will need thorough med rec with assistance of pharmacy prior to ordering home meds to be given here. Anxiety/depression-holding all home meds, med rec needed as noted here COPD-stable on room air, not in acute exacerbation. Continue home inhalers. History of nonobstructive CAD, hyperlipidemia-holding home aspirin. Continue home statin. GERD-continue home PPI Hypothyroidism-continue home Synthroid Neuropathy-PDMP reviewed, fills gabapentin regularly, continue home gabapentin Plan As a result of the above findings & factors, the following mgmt was pursued: - am labs, replace lytes prn - delirium precautions: increase activity - DVT prophylaxis: SCDs and encourage ambulation Complexity: Acute illness with systemic symptoms (MOD). Risk: Admission to hospital-level care was considered or occurred (HIGH). Advance Directive: Prior Anticipated Discharge - Date - 08/18 - Location - Home - Pending the following -urology evaluation Total time spent (which include face to face and non face to face encounters) : 55 minutes. Toxic drug monitoring/narrow therapeutic index drug monitoring : # Drug name : # Route administered : # Method of monitoring : Extended Emergency Contact Information Primary Emergency Contact: Ellie Hicks Relation: Spouse [employer] Sophie Hicks : 1965 Primary Care Physician: WILIAM FERNANDEZ MD The patient and/or family/surrogate voluntarily agreed to participate in ACP services. Patient s cognitive capacity: has capacity Code Status: [X] [FULL CODE - Continue all advanced life support: CPR,intubation,invasive procedures] [_] [DNR-CCA - DO NOT do CPR, intubation] [_] [DNR-CATEGORY MANAGER - Comfort care only] [_] DNR form [was/was not] signed Summary of discussion: The patient health care POA/ surrogate is the following: none. [Condition that instigated the ACP on this DOS, relevant PMH, functional status, goals of care, andwhom this was discussed with including names and relationship to the patient, and any relevant advance care documentation discussion] I answered all the patient/family questions that I could within the range and scope of the current medical situation. We discussed the medical conditions, risks, benefits, outcomes, and goals of careat this time for the patient's medical issues at hand in the face of the patient's chronic issues and current presentation. Total time spent: 5 minutes were spent discussing the patient's resuscitation status, advance care planning, and end of life care, with patient and/or family/surrogate. Floyd Dunlpa Division of Hospitalist Medicine [id number] History and physical note* Floyd Dunlap - 08/18/2023 4:33 AM EDT Attending History and Physical Admit Date: 08/18/2023 PCP: WILIAM FERNANDEZ MD CHIEF COMPLAINT: gross hematuria Reason for Admission: gross hematuria History Obtained From: patient HISTORY OF PRESENT ILLNESS: Sophie is a 57 y.o. male with past medical history below who presents with chief complaint listed above. Seen at bedside in the ED. Lying in bed and conversing normally. Patient was in mild distress due to ongoing lower abdominal pain and discomfort. Had Conte catheter in place that was draining dark red urine. Patient was seen in the ED yesterday evening for gross hematuria. He noted that the hematuria began yesterday afternoon, started with a few drops and then he had deangelo blood in his urine stream. Had Conte catheter placed in the ED yesterday evening and was discharged home with plan to follow-up with urology in the office today. However, states that he had significantly more bloody redurine output at home along with worsening abdominal pain and thus came back to the ED. On chart review, patient has seen urology in the office multiple times recently, last visit on 08/09. Has historyof BPH, had UroLift procedure done in the past but continued to have slow stream and post titrationdribble. Had cystoscopy done on 08/09 that showed moderate bilobar BPH. Plan per urology was to increase Flomax to 2 pills/day, start Cialis 5 mg daily and follow-up for vv in 6 weeks; if no better atthat time they would consider a TURP procedure. Labs showed hemoglobin 14.3, was 13.7 yesterday evening. Platelets 110, were 102 yesterday and has history of mild thrombocytopenia. Creatinine 1.57, down from 1.78 yesterday but still above baselinearound 1.1. CT abdomen pelvis showed no hydronephrosis or nephrolithiasis, showed Conte catheter present within the urinary bladder, no other acute findings. Will admit for further evaluation and management. Past Medical History: Past Medical History: Diagnosis Date Abdominal pain Atrial fibrillation (HCC) Back pain Benign essential HTN 01/29/2015 Blood circulation, collateral CAD (coronary artery disease) mild - dx on cath - neg stress Cerebral artery occlusion with cerebral infarction (HCC) Chronic kidney disease COPD (chronic obstructive pulmonary disease) (HCC) COVID-19 05/03 COVID-19 vaccine series completed 09/25/2020 Moderna COVID-19 vaccine series completed 12/04/2020 BOOSTER CS (cervical spondylosis) 12/25/2004 CERVICAL SPINE DJD Difficulty sleeping Dizziness GERD (gastroesophageal reflux disease) History of colonic polyps 06/21/2013 repeat 2019 Hyperlipidemia Insomnia 08/15/2014 Joint pain, hip Joint pain, knee Memory difficulties Muscle weakness Peripheral polyneuropathy 09/30/2020 Shortness of breath at rest Sleep apnea Snoring SOBOE (shortness of breath on exertion) Type 2 diabetes mellitus (HCC) 03/19/2021 Past Surgical History: Past Surgical History: Procedure Laterality Date APPENDECTOMY BARIATRIC SURGERY 12/03/2021 Dr. Trevino CARDIAC CATHETERIZATION 12/17/2013 NORMAL CORONARY ARTERIES AND LVEF. COLONOSCOPY COLONOSCOPY 2020 CYSTOSCOPY 10/26/2020 CYSTOSCOPY 11/19/2020 EGD (HISTORICAL) 03/02/2023 NECK SURGERY Posterior cervical fusion ROTATOR CUFF REPAIR Bilateral UPPER GASTROINTESTINAL ENDOSCOPY 01/24/2021 Dr. Cabello Social History: Social History Socioeconomic History Marital status: Spouse name: Not on file Number of children: Not on file Years of education: Not on file Highest education level: Not on file Occupational History Not on file Tobacco Use Smoking status: Never Smokeless tobacco: Never Substance and Sexual Activity Alcohol use: Never Drug use: No Sexual activity: Not on file Other Topics Concern Not on file Social History Narrative Not on file Social Determinants of Health Financial Resource Strain: Not on file Food Insecurity: Not on file Transportation Needs: Not on file Physical Activity: Not on file Stress: Not on file Social Connections: Not on file Intimate Partner Violence: Not on file Housing Stability: Not on file Family History: Family History Problem Relation Name Age of Onset Osteoarthritis Mother Lung cancer Mother smoker Coronary artery disease Other Medications Prior to Admission: Current Facility-Administered Medications on File Prior to Encounter Medication Dose Route Frequency Provider Last Rate Last Admin [COMPLETED] cefTRIAXone (Rocephin) 1,000 mg in sodium chloride 0.9 % 50 mL IVPB Mini-Bag Plus 1,000mg IntraVENous Once Delia Zepeda MD Stopped at 08/17/232121 [COMPLETED] LORazepam (Ativan) injection 1 mg 1 mg IntraVENous Once PRN Delia Zepeda MD 1 mg at 08/17/232127 Current Outpatient Medications on File Prior to Encounter Medication Sig Dispense Refill Advair Diskus 250-50 MCG/ACT aerosol powder INHALE 1 PUFF INTO THE LUNGS TWICE DAILY 1 each 10 ALPRAZolam (Xanax) 1 MG tablet Take 1 mg by mouth every 24 hours as needed. aspirin 81 MG chewable tablet Chew 81 mg daily. aspirin 81 MG EC tablet 81 mg daily. atorvastatin (Lipitor) 80 MG tablet Take 80 mg by mouth daily. bacitracin 500 UNIT/GM ointment APPLY TOPICALLY TO AFFECTED AREAS twice a day baclofen (Lioresal) 10 MG tablet Take 10 mg by mouth 2 times daily. bumetanide (Bumex) 1 MG tablet Take 1 mg by mouth in the morning and 1 mg before bedtime. buPROPion XL (Wellbutrin XL) 150 MG 24 hr tablet Take 150 mg by mouth daily. busPIRone (Buspar) 10 MG tablet Take 10 mg by mouth 2 times daily. calcium citrate 250 MG tablet Take 2 tablets (500 mg) by mouth in the morning and 2 tablets (500 mg) at noon and 2 tablets (500 mg) before bedtime. Take 2 tablets by mouth three times daily.. 180 tablet 3 cephalexin (Keflex) 500 MG capsule Take 1 capsule (500 mg) by mouth 3 times daily for 7 days. 21 capsule 0 cholestyramine (Questran) 4 g packet Every 24 hours. Continuous Blood Gluc Sensor (FreeStyle Alexandra 2 Sensor) [facility] [place]; CHANGE SENSOR EVERY 14 DAYS diazePAM (Valium) 5 MG tablet Take 1 tablet (5 mg) by mouth Once for 1 dose. Please take 30 minutesprior to your procedure. 1 tablet 0 Diclofenac Sodium (Voltaren) 1 % gel apply 2 grams to affected area four times a day dicyclomine (Bentyl) 10 MG capsule Take 10 mg by mouth in the morning and 10 mg at noon and 10 mg in the evening and 10 mg before bedtime. Emollient (Aquaphor Advanced Therapy) ointment fluticasone (Flonase) 50 MCG/ACT nasal spray Every 24 hours. furosemide (Lasix) 40 MG tablet Take 40 mg by mouth daily. gabapentin (Neurontin) 300 MG capsule Take 600 mg by mouth 3 times daily. hydrOXYzine pamoate (Vistaril) 25 MG capsule Take 25 mg by mouth in the morning and 25 mg before bedtime. ibuprofen 600 MG tablet take 1 tablet by mouth three times a day if needed with food or milk for 10days levothyroxine (Synthroid, Levoxyl) 75 MCG tablet methocarbamol (Robaxin) 500 MG tablet Take 1.5 tablets (750 mg) by mouth every 8 hours as needed for muscle spasms for up to 5 days. 20 tablet 0 Multiple Vitamins-Minerals (MULTIVITAMIN ADULTS 50+ PO) Take by mouth. mupirocin (Bactroban) 2 % ointment nystatin (Mycostatin) 930022 UNIT/GM powder Apply to affected area 3 times daily 30 g 0 ondansetron (Zofran) 4 MG tablet take 1 tablet by mouth three times a day if needed for nausea and vomiting ondansetron ODT (Zofran-ODT) 4 MG disintegrating tablet oxyCODONE-acetaminophen (Percocet) 5-325 MG tablet Take 1 tablet by mouth 2 times daily. pantoprazole (ProtoNix) 40 MG EC tablet take 1 tablet by mouth once daily 120 tablet 0 PARoxetine (Paxil) 20 MG tablet Take 20 mg by mouth every morning. potassium chloride CR (Klor-Con M20) 20 MEQ ER tablet as needed. promethazine (Phenergan) 12.5 MG tablet Take 12.5 mg by mouth. senna-docusate sodium (Senokot-S) 8.6-50 MG tablet 1-2 tab(s) sertraline (Zoloft) 50 MG tablet Take 50 mg by mouth daily. sildenafil (Revatio) 20 MG tablet take 1-5 tablets BY MOUTH NEEDED tadalafil (Cialis) 5 MG tablet Take 1 tablet (5 mg) by mouth daily. 30 tablet 11 tamsulosin (Flomax) 0.4 MG 24 hr capsule Take 1 capsule (0.4 mg) by mouth daily. 90 capsule 3 tamsulosin (Flomax) 0.4 MG 24 hr capsule Flomax 0.4mg take 2 pills daily, 30 minutes after meal 180capsule 3 tiZANidine (Zanaflex) 2 MG tablet every 12 hours. torsemide (Demadex) 20 MG tablet Take 20 mg by mouth daily. traMADol ER (Ultram-ER) 300 MG 24 hr tablet Take 300 mg by mouth 3 times daily. triamcinolone (Kenalog) 0.1 % cream APPLY TO THE AFFECTED AREAS OF LOWER LEGS TWICE DAILY FOR 2 WEEKS... (REFER TO PRESCRIPTION NOTES). Ventolin HFA 108 (90 Base) MCG/ACT inhaler Inhale 2 puffs every 6 hours as needed. zinc gluconate 50 MG tablet Take 1 tablet by mouth daily. Allergies: Allergies Allergen Reactions Iodinated Contrast Media Other reaction(s): Kidney disease Nsaids Other reaction(s): Kidney disease Due to Kidney Disease REVIEW OF SYSTEMS: Constitutional: Negative for fever, chills, activity change and unexpected weight change. HEENT: Negative for congestion, postnasal drip and sneezing. Eyes: Negative for itching and visual disturbance. Respiratory: Negative for apnea, cough, choking, chest tightness, shortness of breath, wheezing andstridor. Cardiovascular: Negative for chest pain. Gastrointestinal: Negative for nausea, vomiting, abdominal pain, diarrhea and blood in stool. Genitourinary: Positive for gross hematuria, lower abdominal/suprapubic pain. Negative for flank pain. Musculoskeletal: Negative for myalgias and joint swelling. Skin: Negative for rash. Neurological: Negative for dizziness, tremors, seizures, syncope, facial asymmetry, speech difficulty, weakness, numbness and headaches. Hematological: Negative for adenopathy. Psychiatric/Behavioral: Negative for suicidal ideas, behavioral problems, self- injury and dysphoricmood. Vitals: BP (!) 160/97 Pulse 100 Temp 36.3 C (97.4 F) (Temporal) Resp 20 Ht 6' 1 (1.854 m) Wt 260lb (118 kg) SpO2 99% BMI 34.30 kg/m BMI Classification: Obese (BMI 30.0-39.9) Pulse Ox: SpO2 Av.4 % Min: 96 % Max: 99 % Supplemental O2: PHYSICAL EXAM: Physical Exam Constitutional: Appearance: He is obese. Comments: Laying comfortably, conversing normally, mild distress due to ongoing lower abdominal/suprapubic discomfort. HENT: Mouth/Throat: Mouth: Mucous membranes are moist. Pharynx: Oropharynx is clear. Cardiovascular: Rate and Rhythm: Normal rate and regular rhythm. Pulses: Normal pulses. Heart sounds: Normal heart sounds. Pulmonary: Effort: Pulmonary effort is normal. Breath sounds: Normal breath sounds. Abdominal: General: Abdomen is flat. There is no distension. Palpations: Abdomen is soft. Tenderness: There is abdominal tenderness (Mild tenderness to palpation in the suprapubic region). There is no right CVA tenderness, left CVA tenderness, guarding or rebound. Musculoskeletal: General: Normal range of motion. Skin: General: Skin is warm and dry. Neurological: Mental Status: He is alert. Psychiatric: Mood and Affect: Mood normal. Behavior: Behavior normal. Thought Content: Thought content normal. DATA: CBC: Recent Labs 08/17/23204708/18/23 0331 WBC 9.4 12.5* RBC 4.61 4.88 HGB 13.7 14.3 HCT 40.6 43.0 MCV 88.1 88.1 RDW 13.2 13.1 PLT 102* 110* BMP: Recent Labs 08/17/23204708/18/23 0331 NA 140 141 K 4.2 4.1 CL 105 106 CO2 26 23 BUN 18 20 CREATININE 1.78* 1.57* GLUCOSE 103* 132* CALCIUM 8.7 8.8 ANIONGAP 9 12 LIVER PROFILE: Recent Labs 08/18/23 0331 AST 28 ALT 17 BILITOT 0.9 ALKPHOS 71 PROT 7.4 PT/INR: No results for input(s): PROTIME, INR in the last 72 hours. CARDIAC ENZYMES: No results for input(s): TROPONINI in the last 72 hours. Procalcitonin: No results found for: PROCAL Urine Culture: No results found for this or any previous visit. COVID-19 PCR: No results for input(s): COVID19 in the last 72 hours. I reviewed: [x] laboratory results [x] radiographic results At the time of today's encounter. Pt was advised of the results. Data: (CAT1) Reviewed 1 notes from different specialty or health system (each=1). (CAT1) Reviewed 3 or more labs/studies ordered by another provider not previously counted (each=1, panels count as 1). (CAT1) Ordered 3 or more new labs and/or studies (each=1, panels count as 1). (CAT2) CT of abdomen pelvis without contrast reviewed & showed no hydronephrosis or nephrolithiasis, no acute findings. as interpreted by me. (CAT3) Discussed with ED provider, Dr. Chance, regarding patient's eval & mgmt thus far, and agreewith the plan for hospitalization. (LOW: 2x CAT1 or independent historian MOD: 3x CAT1 or 1x CAT3 EXTENSIVE: 3x CAT1 and 1x CAT3) Assessment Discussed management with the ED provider and agree with hospitalization. Acute, acute on chronic, unstable/uncontrolled chronic problems/diagnoses: Gross hematuria with lower abdominal pain, history of BPH with recent instrumentation, concern for UTI-urology consulted. Conte catheter in place, were unable to place three-way Conte for CBI in the ED due to severe pain with placement. Holding home aspirin. Hemoglobin stable at baseline 13-14. UA i nfectious appearing, started on ceftriaxone, follow-up urine culture. IV Dilaudid and p.o. Percocetas needed for pain control. MEGAN-presumed prerenal. trend daily BMP and urine output. Stable chronic problems affecting care, new non-acute diagnoses: Extensive medication regimen-Home med list extensive and with multiple conflicting medications listed. For example, has both sertraline and paroxetine on the list. Also has Lasix, Bumex and torsemidelisted. Will need thorough med rec with assistance of pharmacy prior to ordering home meds to be given here. Anxiety/depression-holding all home meds, med rec needed as noted here COPD-stable on room air, not in acute exacerbation. Continue home inhalers. History of nonobstructive CAD, hyperlipidemia-holding home aspirin. Continue home statin. GERD-continue home PPI Hypothyroidism-continue home Synthroid Neuropathy-PDMP reviewed, fills gabapentin regularly, continue home gabapentin Plan As a result of the above findings & factors, the following mgmt was pursued: - am labs, replace lytes prn - delirium precautions: increase activity - DVT prophylaxis: SCDs and encourage ambulation Complexity: Acute illness with systemic symptoms (MOD). Risk: Admission to hospital-level care was considered or occurred (HIGH). Advance Directive: Prior Anticipated Discharge - Date - 08/18 - Location - Home - Pending the following -urology evaluation Total time spent (which include face to face and non face to face encounters) : 55 minutes. Toxic drug monitoring/narrow therapeutic index drug monitoring : # Drug name : # Route administered : # Method of monitoring : Extended Emergency Contact Information Primary Emergency Contact: Ellie Hicks Relation: Spouse [employer] Sophie Hicks : 1965 Primary Care Physician: WILIAM FERNANDEZ MD The patient and/or family/surrogate voluntarily agreed to participate in ACP services. Patient s cognitive capacity: has capacity Code Status: [X] [FULL CODE - Continue all advanced life support: CPR,intubation,invasive procedures] [_] [DNR-CCA - DO NOT do CPR, intubation] [_] [DNR-CATEGORY MANAGER - Comfort care only] [_] DNR form [was/was not] signed Summary of discussion: The patient health care POA/ surrogate is the following: none. [Condition that instigated the ACP on this DOS, relevant PMH, functional status, goals of care, andwhom this was discussed with including names and relationship to the patient, and any relevant advance care documentation discussion] I answered all the patient/family questions that I could within the range and scope of the current medical situation. We discussed the medical conditions, risks, benefits, outcomes, and goals of careat this time for the patient's medical issues at hand in the face of the patient's chronic issues and current presentation. Total time spent: 5 minutes were spent discussing the patient's resuscitation status, advance care planning, and end of life care, with patient and/or family/surrogate. Floyd Dunlap Division of Hospitalist Medicine [facility] documented in this [facility]05-07-2024 Emergency department Note* Cornelius Chance MD - 08/18/2023 2:54 AM EDT EMERGENCY DEPARTMENT ENCOUNTER Pt Name: Sophie Hicks Birthdate 1965 Date of evaluation: 08/18/2023 ED Provider: Cornelius Chance MD CHIEF COMPLAINT Chief Complaint Patient presents with Blood in Urine Pt arrives to ED for a second time today - pt had a conte placed with irrigation yesterday for bleeding, and pt's urinary pain and bleeding has increased since placing it. HISTORY OF PRESENT ILLNESS (Location/Symptom, Timing/Onset, Context/Setting, Quality, Duration, Modifying Factors, Severity) Note limiting factors. I wore appropriate PPE for the entirety of this encounter. HPI Sophie Hicks is a 57 y.o. who presents to the emergency department with a chief complaint of hematuria. He was just discharged from the emergency department several hours ago. Then, he also had hematuria. A Conte was placed and his bladder was irrigated with return of clear urine. The patient alsoreports having suprapubic abdominal pain. He is not anticoagulated. Nursing Notes were reviewed. REVIEW OF SYSTEMS Review of Systems Pertinent positives and negatives as per HPI. PAST MEDICAL HISTORY Past Medical History: Diagnosis Date Abdominal pain Atrial fibrillation (HCC) Back pain Benign essential HTN 01/29/2015 Blood circulation, collateral CAD (coronary artery disease) mild - dx on cath - neg stress Cerebral artery occlusion with cerebral infarction (HCC) Chronic kidney disease COPD (chronic obstructive pulmonary disease) ([facility]) COVID-19 05/03 COVID-19 vaccine series completed 09/25/2020 Moderna COVID-19 vaccine series completed 12/04/2020 BOOSTER CS (cervical spondylosis) 12/25/2004 CERVICAL SPINE DJD Difficulty sleeping Dizziness GERD (gastroesophageal reflux disease) History of colonic polyps 06/21/2013 repeat 2019 Hyperlipidemia Insomnia 08/15/2014 Joint pain, hip Joint pain, knee Memory difficulties Muscle weakness Peripheral polyneuropathy 09/30/2020 Shortness of breath at rest Sleep apnea Snoring SOBOE (shortness of breath on exertion) Type 2 diabetes mellitus (HCC) 03/19/2021 SURGICAL HISTORY Past Surgical History: Procedure Laterality Date APPENDECTOMY BARIATRIC SURGERY 12/03/2021 Dr. Trevino CARDIAC CATHETERIZATION 12/17/2013 NORMAL CORONARY ARTERIES AND LVEF. COLONOSCOPY COLONOSCOPY 2020 CYSTOSCOPY 10/26/2020 CYSTOSCOPY 11/19/2020 EGD (HISTORICAL) 03/02/2023 NECK SURGERY Posterior cervical fusion ROTATOR CUFF REPAIR Bilateral UPPER GASTROINTESTINAL ENDOSCOPY 01/24/2021 Dr. Cabello CURRENT MEDICATIONS Previous Medications ADVAIR DISKUS 250-50 MCG/ACT AEROSOL POWDER INHALE 1 PUFF INTO THE LUNGS TWICE DAILY ALPRAZOLAM (XANAX) 1 MG TABLET Take 1 mg by mouth every 24 hours as needed. ASPIRIN 81 MG CHEWABLE TABLET Chew 81 mg daily. ASPIRIN 81 MG EC TABLET 81 mg daily. ATORVASTATIN (LIPITOR) 80 MG TABLET Take 80 mg by mouth daily. BACITRACIN 500 UNIT/GM OINTMENT APPLY TOPICALLY TO AFFECTED AREAS twice a day BACLOFEN (LIORESAL) 10 MG TABLET Take 10 mg by mouth 2 times daily. BUMETANIDE (BUMEX) 1 MG TABLET Take 1 mg by mouth in the morning and 1 mg before bedtime. BUPROPION XL (WELLBUTRIN XL) 150 MG 24 HR TABLET Take 150 mg by mouth daily. BUSPIRONE (BUSPAR) 10 MG TABLET Take 10 mg by mouth 2 times daily. CALCIUM CITRATE 250 MG TABLET Take 2 tablets (500 mg) by mouth in the morning and 2 tablets (500 mg) at noon and 2 tablets (500 mg) before bedtime. Take 2 tablets by mouth three times daily.. CEPHALEXIN (KEFLEX) 500 MG CAPSULE Take 1 capsule (500 mg) by mouth 3 times daily for 7 days. CHOLESTYRAMINE (QUESTRAN) 4 G PACKET Every 24 hours. CONTINUOUS BLOOD GLUC SENSOR (FREESTYLE ALEXANDRA 2 SENSOR) [facility] USE DIRECTED; CHANGE SENSOR EVERY 14 DAYS DIAZEPAM (VALIUM) 5 MG TABLET Take 1 tablet (5 mg) by mouth Once for 1 dose. Please take 30 minutesprior to your procedure. DICLOFENAC SODIUM (VOLTAREN) 1 % GEL apply 2 grams to affected area four times a day DICYCLOMINE (BENTYL) 10 MG CAPSULE Take 10 mg by mouth in the morning and 10 mg at noon and 10 mg in the evening and 10 mg before bedtime. EMOLLIENT (AQUAPHOR ADVANCED THERAPY) OINTMENT FLUTICASONE (FLONASE) 50 MCG/ACT NASAL SPRAY Every 24 hours. FUROSEMIDE (LASIX) 40 MG TABLET Take 40 mg by mouth daily. GABAPENTIN (NEURONTIN) 300 MG CAPSULE Take 600 mg by mouth 3 times daily. HYDROXYZINE PAMOATE (VISTARIL) 25 MG CAPSULE Take 25 mg by mouth in the morning and 25 mg before bedtime. IBUPROFEN 600 MG TABLET take 1 tablet by mouth three times a day if needed with food or milk for 10days LEVOTHYROXINE (SYNTHROID, LEVOXYL) 75 MCG TABLET METHOCARBAMOL (ROBAXIN) 500 MG TABLET Take 1.5 tablets (750 mg) by mouth every 8 hours as needed for muscle spasms for up to 5 days. MULTIPLE VITAMINS-MINERALS (MULTIVITAMIN ADULTS 50+ PO) Take by mouth. MUPIROCIN (BACTROBAN) 2 % OINTMENT NYSTATIN (MYCOSTATIN) 968370 UNIT/GM POWDER Apply to affected area 3 times daily ONDANSETRON (ZOFRAN) 4 MG TABLET take 1 tablet by mouth three times a day if needed for nausea and vomiting ONDANSETRON ODT (ZOFRAN-ODT) 4 MG DISINTEGRATING TABLET OXYCODONE-ACETAMINOPHEN (PERCOCET) 5-325 MG TABLET Take 1 tablet by mouth 2 times daily. PANTOPRAZOLE (PROTONIX) 40 MG EC TABLET take 1 tablet by mouth once daily PAROXETINE (PAXIL) 20 MG TABLET Take 20 mg by mouth every morning. POTASSIUM CHLORIDE CR (KLOR-CON M20) 20 MEQ ER TABLET as needed. PROMETHAZINE (PHENERGAN) 12.5 MG TABLET Take 12.5 mg by mouth. SENNA-DOCUSATE SODIUM (SENOKOT-S) 8.6-50 MG TABLET 1-2 tab(s) SERTRALINE (ZOLOFT) 50 MG TABLET Take 50 mg by mouth daily. SILDENAFIL (REVATIO) 20 MG TABLET take 1-5 tablets BY MOUTH NEEDED TADALAFIL (CIALIS) 5 MG TABLET Take 1 tablet (5 mg) by mouth daily. TAMSULOSIN (FLOMAX) 0.4 MG 24 HR CAPSULE Take 1 capsule (0.4 mg) by mouth daily. TAMSULOSIN (FLOMAX) 0.4 MG 24 HR CAPSULE Flomax 0.4mg take 2 pills daily, 30 minutes after meal TIZANIDINE (ZANAFLEX) 2 MG TABLET every 12 hours. TORSEMIDE (DEMADEX) 20 MG TABLET Take 20 mg by mouth daily. TRAMADOL ER (ULTRAM-ER) 300 MG 24 HR TABLET Take 300 mg by mouth 3 times daily. TRIAMCINOLONE (KENALOG) 0.1 % CREAM APPLY TO THE AFFECTED AREAS OF LOWER LEGS TWICE DAILY FOR 2 WEEKS... (REFER TO PRESCRIPTION NOTES). VENTOLIN HFA 108 (90 BASE) MCG/ACT INHALER Inhale 2 puffs every 6 hours as needed. ZINC GLUCONATE 50 MG TABLET Take 1 tablet by mouth daily. ALLERGIES Iodinated contrast media and Nsaids FAMILY HISTORY Family History Problem Relation Name Age of Onset Osteoarthritis Mother Lung cancer Mother smoker Coronary artery disease Other SOCIAL HISTORY Social History Socioeconomic History Marital status: Tobacco Use Smoking status: Never Smokeless tobacco: Never Substance and Sexual Activity Alcohol use: Never Drug use: No SCREENINGS PHYSICAL EXAM ED Triage Vitals [08/18/23 0257] Temp Heart Rate Resp BP 36.3 C (97.4 F) 100 20 (!) 160/97 SpO2 Temp Source Heart Rate Source Patient Position 98 % Temporal Monitor -- BP Location FiO2 (%) -- -- [id number], no acute distress, nontoxic-appearing HEENT- atraumatic, normocephalic Neck- no meningismus, no obvious masses Respiratory- no respiratory distress Cardiovascular- regular rate and rhythm, well perfused Abdomen- soft, non-tender, no rebound or guarding - conte tubing with pink-red urine MSK- normal muscle bulk, no gross deformities Skin- diaphoretic, no obvious rashes or lesions Neuro- alert, answering questions appropriately, CN2-12 grossly intact, moving all extremities Psych- calm, cooperative DIAGNOSTIC RESULTS Interpretation per the Radiologist below, if available at the time of this note: CT abdomen pelvis wo IV contrast Final Result No acute process. Chronic findings as above. Report Dictated on Electronically Signed By: Rohan Michael MD Electronically Signed Date/Time: 08/18/2023 4:17 AM EDT LABS: Labs Reviewed CBC WITH AUTO DIFFERENTIAL - Abnormal Result Value Auto WBC 12.5 (*) RBC 4.88 Hemoglobin 14.3 Hematocrit 43.0 MCV 88.1 MCH 29.3 MCHC 33.3 RDW 13.1 Platelets 110 (*) MPV 8.6 (*) nRBC 0.0 Neutrophils Relative 78.8 Lymphocytes Relative 12.7 (*) Monocytes Relative 6.8 Eosinophils Relative 1.0 Basophils Relative 0.4 Immature Grans % 0.3 Neutrophils Absolute 9.9 (*) Lymphocytes Absolute 1.6 Monocytes Absolute 0.9 Eosinophils Absolute 0.1 Basophils Absolute 0.1 Immature Grans Absolute 0.0 COMPREHENSIVE METABOLIC PANEL - Abnormal SODIUM 141 POTASSIUM 4.1 CHLORIDE 106 CARBON DIOXIDE 23 ANION GAP 12 UREA NITROGEN 20 CREATININE 1.57 (*) GLUCOSE 132 (*) CALCIUM 8.8 AST (SGOT) 28 ALT 17 ALKALINE PHOSPHATASE 71 ALBUMIN 4.4 BILIRUBIN, TOTAL 0.9 TOTAL PROTEIN 7.4 eGFR 50.5 (*) All other labs were within normal range or not returned as of this dictation. EMERGENCY DEPARTMENT COURSE/Reval Vitals: Vitals: 08/18/23 0257 08/18/23 0259 BP: (!) 160/97 Pulse: 100 Resp: 20 Temp: 36.3 C (97.4 F) TempSrc: Temporal SpO2: 98% 99% Weight: 118 kg (260 lb) Height: 1.854 m (6' 1) Diagnoses as of 08/18/23 0448 Hematuria Medications mometasone-formoterol (Dulera 100) 100-5 MCG/ACT inhaler 2 puff (has no administration in time range) atorvastatin (Lipitor) tablet 80 mg (has no administration in time range) fluticasone (Flonase) nasal spray 1 spray (has no administration in time range) levothyroxine (Synthroid, Levoxyl) tablet 75 mcg (has no administration in time range) pantoprazole (ProtoNix) EC tablet 40 mg (has no administration in time range) tamsulosin (Flomax) 24 hr capsule 0.4 mg (has no administration in time range) cholestyramine (Questran) packet 4 g (has no administration in time range) acetaminophen (Tylenol) tablet 650 mg (has no administration in time range) Or acetaminophen (Tylenol) suppository 650 mg (has no administration in time range) ondansetron ODT (Zofran-ODT) disintegrating tablet 4 mg (has no administration in time range) Or ondansetron (Zofran) injection 4 mg (has no administration in time range) polyethylene glycol (PEG) 3350 (Miralax) packet 17 g (has no administration in time range) cefTRIAXone (Rocephin) 1,000 mg in sodium chloride 0.9 % 50 mL IVPB Mini-Bag Plus (has no administration in time range) gabapentin (Neurontin) capsule 600 mg (has no administration in time range) oxyCODONE-acetaminophen (Percocet) 5-325 MG per tablet 1 tablet (has no administration in time range) naloxone (Narcan) injection 0.4 mg (has no administration in time range) lidocaine (Uro-Jet) 2 % gel (has no administration in time range) HYDROmorphone (Dilaudid) injection 0.5 mg (0.5 mg IntraVENous Given 08/18/23 1430) EMERGENCY DEPARTMENT COURSE and DIFFERENTIAL DIAGNOSIS/Reval/MDM: Vitals: Vitals: 08/18/23 0257 08/18/23 0259 BP: (!) 160/97 Pulse: 100 Resp: 20 Temp: 36.3 C (97.4 F) TempSrc: Temporal SpO2: 98% 99% Weight: 118 kg (260 lb) Height: 1.854 m (6' 1) Diagnoses as of 08/18/23 0448 Hematuria ED Medications managed: Medications mometasone-formoterol (Dulera 100) 100-5 MCG/ACT inhaler 2 puff (has no administration in time range) atorvastatin (Lipitor) tablet 80 mg (has no administration in time range) fluticasone (Flonase) nasal spray 1 spray (has no administration in time range) levothyroxine (Synthroid, Levoxyl) tablet 75 mcg (has no administration in time range) pantoprazole (ProtoNix) EC tablet 40 mg (has no administration in time range) tamsulosin (Flomax) 24 hr capsule 0.4 mg (has no administration in time range) cholestyramine (Questran) packet 4 g (has no administration in time range) acetaminophen (Tylenol) tablet 650 mg (has no administration in time range) Or acetaminophen (Tylenol) suppository 650 mg (has no administration in time range) ondansetron ODT (Zofran-ODT) disintegrating tablet 4 mg (has no administration in time range) Or ondansetron (Zofran) injection 4 mg (has no administration in time range) polyethylene glycol (PEG) 3350 (Miralax) packet 17 g (has no administration in time range) cefTRIAXone (Rocephin) 1,000 mg in sodium chloride 0.9 % 50 mL IVPB Mini-Bag Plus (has no administration in time range) gabapentin (Neurontin) capsule 600 mg (has no administration in time range) oxyCODONE-acetaminophen (Percocet) 5-325 MG per tablet 1 tablet (has no administration in time range) naloxone (Narcan) injection 0.4 mg (has no administration in time range) lidocaine (Uro-Jet) 2 % gel (has no administration in time range) HYDROmorphone (Dilaudid) injection 0.5 mg (0.5 mg IntraVENous Given 08/18/23 0325) EKG interpreted by me: Discussions with other clinicians: Hospitalist, about admission Medical conditions impacting care: Not anticoagulated Social determinants of health affecting care: no obvious social determinants impacting this patient's health Escalation of care, appropriate for: Admission MDM: 57-year-old male with hematuria. He is not anticoagulated. He was hemodynamically stable and his hemoglobin is appropriate. Given the pain, I got a CT scan of his abdomen and pelvis. This was reassuring. Because he failed outpatient management, I will have him admitted for further care. I ordered CBI for him. However, our nurses were unable to place the catheter for CBI. As such, we will just have the regular Conte replaced. He was admitted. CRITICAL CARE TIME PROCEDURES: Unless otherwise noted below, none Procedures FINAL IMPRESSION 1. Hematuria DISPOSITION Admit 08/18/2023 04:40:44 AM PATIENT REFERRED TO: No follow-up provider specified. DISCHARGE MEDICATIONS: New Prescriptions No medications on file (Comment: Please note this report has been produced using speech recognition software and may contain errors related to that system including errors in grammar, punctuation, and spelling, as well as words and phrases that may be inappropriate. If there are any questions or concerns please feel freeto contact the dictating provider for clarification.) Cornelius Chance MD (electronically signed) Emergency Medicine Physician Cornelius Chance MD 08/18/23 4823 Cornelius Chance MD 08/18/23 7748 Cornelius Chance MD 08/18/23 0517 documented in this [facility]05-07-2024 Physician Emergency department Note* Cornelius Chance MD - 08/18/2023 2:54 AM EDT EMERGENCY DEPARTMENT ENCOUNTER Pt Name: Sophie Hicks Birthdate 1965 Date of evaluation: 08/18/2023 ED Provider: Cornelius Chance MD CHIEF COMPLAINT Chief Complaint Patient presents with Blood in Urine Pt arrives to ED for a second time today - pt had a conte placed with irrigation yesterday for bleeding, and pt's urinary pain and bleeding has increased since placing it. HISTORY OF PRESENT ILLNESS (Location/Symptom, Timing/Onset, Context/Setting, Quality, Duration, Modifying Factors, Severity) Note limiting factors. I wore appropriate PPE for the entirety of this encounter. HPI Sophie Hicks is a 57 y.o. who presents to the emergency department with a chief complaint of hematuria. He was just discharged from the emergency department several hours ago. Then, he also had hematuria. A Conte was placed and his bladder was irrigated with return of clear urine. The patient alsoreports having suprapubic abdominal pain. He is not anticoagulated. Nursing Notes were reviewed. REVIEW OF SYSTEMS Review of Systems Pertinent positives and negatives as per HPI. PAST MEDICAL HISTORY Past Medical History: Diagnosis Date Abdominal pain Atrial fibrillation (HCC) Back pain Benign essential HTN 01/29/2015 Blood circulation, collateral CAD (coronary artery disease) mild - dx on cath - neg stress Cerebral artery occlusion with cerebral infarction (HCC) Chronic kidney disease COPD (chronic obstructive pulmonary disease) ([facility]) COVID-19 05/03 COVID-19 vaccine series completed 09/25/2020 Moderna COVID-19 vaccine series completed 12/04/2020 BOOSTER CS (cervical spondylosis) 12/25/2004 CERVICAL SPINE DJD Difficulty sleeping Dizziness GERD (gastroesophageal reflux disease) History of colonic polyps 06/21/2013 repeat 2019 Hyperlipidemia Insomnia 08/15/2014 Joint pain, hip Joint pain, knee Memory difficulties Muscle weakness Peripheral polyneuropathy 09/30/2020 Shortness of breath at rest Sleep apnea Snoring SOBOE (shortness of breath on exertion) Type 2 diabetes mellitus (HCC) 03/19/2021 SURGICAL HISTORY Past Surgical History: Procedure Laterality Date APPENDECTOMY BARIATRIC SURGERY 12/03/2021 Dr. Trevino CARDIAC CATHETERIZATION 12/17/2013 NORMAL CORONARY ARTERIES AND LVEF. COLONOSCOPY COLONOSCOPY 2020 CYSTOSCOPY 10/26/2020 CYSTOSCOPY 11/19/2020 EGD (HISTORICAL) 03/02/2023 NECK SURGERY Posterior cervical fusion ROTATOR CUFF REPAIR Bilateral UPPER GASTROINTESTINAL ENDOSCOPY 01/24/2021 Dr. Cabello CURRENT MEDICATIONS Previous Medications ADVAIR DISKUS 250-50 MCG/ACT AEROSOL POWDER INHALE 1 PUFF INTO THE LUNGS TWICE DAILY ALPRAZOLAM (XANAX) 1 MG TABLET Take 1 mg by mouth every 24 hours as needed. ASPIRIN 81 MG CHEWABLE TABLET Chew 81 mg daily. ASPIRIN 81 MG EC TABLET 81 mg daily. ATORVASTATIN (LIPITOR) 80 MG TABLET Take 80 mg by mouth daily. BACITRACIN 500 UNIT/GM OINTMENT APPLY TOPICALLY TO AFFECTED AREAS twice a day BACLOFEN (LIORESAL) 10 MG TABLET Take 10 mg by mouth 2 times daily. BUMETANIDE (BUMEX) 1 MG TABLET Take 1 mg by mouth in the morning and 1 mg before bedtime. BUPROPION XL (WELLBUTRIN XL) 150 MG 24 HR TABLET Take 150 mg by mouth daily. BUSPIRONE (BUSPAR) 10 MG TABLET Take 10 mg by mouth 2 times daily. CALCIUM CITRATE 250 MG TABLET Take 2 tablets (500 mg) by mouth in the morning and 2 tablets (500 mg) at noon and 2 tablets (500 mg) before bedtime. Take 2 tablets by mouth three times daily.. CEPHALEXIN (KEFLEX) 500 MG CAPSULE Take 1 capsule (500 mg) by mouth 3 times daily for 7 days. CHOLESTYRAMINE (QUESTRAN) 4 G PACKET Every 24 hours. CONTINUOUS BLOOD GLUC SENSOR (FREESTYLE ALEXANDRA 2 SENSOR) [facility] USE DIRECTED; CHANGE SENSOR EVERY 14 DAYS DIAZEPAM (VALIUM) 5 MG TABLET Take 1 tablet (5 mg) by mouth Once for 1 dose. Please take 30 minutesprior to your procedure. DICLOFENAC SODIUM (VOLTAREN) 1 % GEL apply 2 grams to affected area four times a day DICYCLOMINE (BENTYL) 10 MG CAPSULE Take 10 mg by mouth in the morning and 10 mg at noon and 10 mg in the evening and 10 mg before bedtime. EMOLLIENT (AQUAPHOR ADVANCED THERAPY) OINTMENT FLUTICASONE (FLONASE) 50 MCG/ACT NASAL SPRAY Every 24 hours. FUROSEMIDE (LASIX) 40 MG TABLET Take 40 mg by mouth daily. GABAPENTIN (NEURONTIN) 300 MG CAPSULE Take 600 mg by mouth 3 times daily. HYDROXYZINE PAMOATE (VISTARIL) 25 MG CAPSULE Take 25 mg by mouth in the morning and 25 mg before bedtime. IBUPROFEN 600 MG TABLET take 1 tablet by mouth three times a day if needed with food or milk for 10days LEVOTHYROXINE (SYNTHROID, LEVOXYL) 75 MCG TABLET METHOCARBAMOL (ROBAXIN) 500 MG TABLET Take 1.5 tablets (750 mg) by mouth every 8 hours as needed for muscle spasms for up to 5 days. MULTIPLE VITAMINS-MINERALS (MULTIVITAMIN ADULTS 50+ PO) Take by mouth. MUPIROCIN (BACTROBAN) 2 % OINTMENT NYSTATIN (MYCOSTATIN) 065215 UNIT/GM POWDER Apply to affected area 3 times daily ONDANSETRON (ZOFRAN) 4 MG TABLET take 1 tablet by mouth three times a day if needed for nausea and vomiting ONDANSETRON ODT (ZOFRAN-ODT) 4 MG DISINTEGRATING TABLET OXYCODONE-ACETAMINOPHEN (PERCOCET) 5-325 MG TABLET Take 1 tablet by mouth 2 times daily. PANTOPRAZOLE (PROTONIX) 40 MG EC TABLET take 1 tablet by mouth once daily PAROXETINE (PAXIL) 20 MG TABLET Take 20 mg by mouth every morning. POTASSIUM CHLORIDE CR (KLOR-CON M20) 20 MEQ ER TABLET as needed. PROMETHAZINE (PHENERGAN) 12.5 MG TABLET Take 12.5 mg by mouth. SENNA-DOCUSATE SODIUM (SENOKOT-S) 8.6-50 MG TABLET 1-2 tab(s) SERTRALINE (ZOLOFT) 50 MG TABLET Take 50 mg by mouth daily. SILDENAFIL (REVATIO) 20 MG TABLET take 1-5 tablets BY MOUTH NEEDED TADALAFIL (CIALIS) 5 MG TABLET Take 1 tablet (5 mg) by mouth daily. TAMSULOSIN (FLOMAX) 0.4 MG 24 HR CAPSULE Take 1 capsule (0.4 mg) by mouth daily. TAMSULOSIN (FLOMAX) 0.4 MG 24 HR CAPSULE Flomax 0.4mg take 2 pills daily, 30 minutes after meal TIZANIDINE (ZANAFLEX) 2 MG TABLET every 12 hours. TORSEMIDE (DEMADEX) 20 MG TABLET Take 20 mg by mouth daily. TRAMADOL ER (ULTRAM-ER) 300 MG 24 HR TABLET Take 300 mg by mouth 3 times daily. TRIAMCINOLONE (KENALOG) 0.1 % CREAM APPLY TO THE AFFECTED AREAS OF LOWER LEGS TWICE DAILY FOR 2 WEEKS... (REFER TO PRESCRIPTION NOTES). VENTOLIN HFA 108 (90 BASE) MCG/ACT INHALER Inhale 2 puffs every 6 hours as needed. ZINC GLUCONATE 50 MG TABLET Take 1 tablet by mouth daily. ALLERGIES Iodinated contrast media and Nsaids FAMILY HISTORY Family History Problem Relation Name Age of Onset Osteoarthritis Mother Lung cancer Mother smoker Coronary artery disease Other SOCIAL HISTORY Social History Socioeconomic History Marital status: Tobacco Use Smoking status: Never Smokeless tobacco: Never Substance and Sexual Activity Alcohol use: Never Drug use: No SCREENINGS PHYSICAL EXAM ED Triage Vitals [08/18/23 0257] Temp Heart Rate Resp BP 36.3 C (97.4 F) 100 20 (!) 160/97 SpO2 Temp Source Heart Rate Source Patient Position 98 % Temporal Monitor -- BP Location FiO2 (%) -- -- [id number], no acute distress, nontoxic-appearing HEENT- atraumatic, normocephalic Neck- no meningismus, no obvious masses Respiratory- no respiratory distress Cardiovascular- regular rate and rhythm, well perfused Abdomen- soft, non-tender, no rebound or guarding - conte tubing with pink-red urine MSK- normal muscle bulk, no gross deformities Skin- diaphoretic, no obvious rashes or lesions Neuro- alert, answering questions appropriately, CN2-12 grossly intact, moving all extremities Psych- calm, cooperative DIAGNOSTIC RESULTS Interpretation per the Radiologist below, if available at the time of this note: CT abdomen pelvis wo IV contrast Final Result No acute process. Chronic findings as above. Report Dictated on Electronically Signed By: Rohan Michael MD Electronically Signed Date/Time: 08/18/2023 4:17 AM EDT LABS: Labs Reviewed CBC WITH AUTO DIFFERENTIAL - Abnormal Result Value Auto WBC 12.5 (*) RBC 4.88 Hemoglobin 14.3 Hematocrit 43.0 MCV 88.1 MCH 29.3 MCHC 33.3 RDW 13.1 Platelets 110 (*) MPV 8.6 (*) nRBC 0.0 Neutrophils Relative 78.8 Lymphocytes Relative 12.7 (*) Monocytes Relative 6.8 Eosinophils Relative 1.0 Basophils Relative 0.4 Immature Grans % 0.3 Neutrophils Absolute 9.9 (*) Lymphocytes Absolute 1.6 Monocytes Absolute 0.9 Eosinophils Absolute 0.1 Basophils Absolute 0.1 Immature Grans Absolute 0.0 COMPREHENSIVE METABOLIC PANEL - Abnormal SODIUM 141 POTASSIUM 4.1 CHLORIDE 106 CARBON DIOXIDE 23 ANION GAP 12 UREA NITROGEN 20 CREATININE 1.57 (*) GLUCOSE 132 (*) CALCIUM 8.8 AST (SGOT) 28 ALT 17 ALKALINE PHOSPHATASE 71 ALBUMIN 4.4 BILIRUBIN, TOTAL 0.9 TOTAL PROTEIN 7.4 eGFR 50.5 (*) All other labs were within normal range or not returned as of this dictation. EMERGENCY DEPARTMENT COURSE/Reval Vitals: Vitals: 08/18/23 0257 08/18/23 0259 BP: (!) 160/97 Pulse: 100 Resp: 20 Temp: 36.3 C (97.4 F) TempSrc: Temporal SpO2: 98% 99% Weight: 118 kg (260 lb) Height: 1.854 m (6' 1) Diagnoses as of 08/18/23 0448 Hematuria Medications mometasone-formoterol (Dulera 100) 100-5 MCG/ACT inhaler 2 puff (has no administration in time range) atorvastatin (Lipitor) tablet 80 mg (has no administration in time range) fluticasone (Flonase) nasal spray 1 spray (has no administration in time range) levothyroxine (Synthroid, Levoxyl) tablet 75 mcg (has no administration in time range) pantoprazole (ProtoNix) EC tablet 40 mg (has no administration in time range) tamsulosin (Flomax) 24 hr capsule 0.4 mg (has no administration in time range) cholestyramine (Questran) packet 4 g (has no administration in time range) acetaminophen (Tylenol) tablet 650 mg (has no administration in time range) Or acetaminophen (Tylenol) suppository 650 mg (has no administration in time range) ondansetron ODT (Zofran-ODT) disintegrating tablet 4 mg (has no administration in time range) Or ondansetron (Zofran) injection 4 mg (has no administration in time range) polyethylene glycol (PEG) 3350 (Miralax) packet 17 g (has no administration in time range) cefTRIAXone (Rocephin) 1,000 mg in sodium chloride 0.9 % 50 mL IVPB Mini-Bag Plus (has no administration in time range) gabapentin (Neurontin) capsule 600 mg (has no administration in time range) oxyCODONE-acetaminophen (Percocet) 5-325 MG per tablet 1 tablet (has no administration in time range) naloxone (Narcan) injection 0.4 mg (has no administration in time range) lidocaine (Uro-Jet) 2 % gel (has no administration in time range) HYDROmorphone (Dilaudid) injection 0.5 mg (0.5 mg IntraVENous Given 08/18/23 0325) EMERGENCY DEPARTMENT COURSE and DIFFERENTIAL DIAGNOSIS/Reval/MDM: Vitals: Vitals: 08/18/23 0257 08/18/23 0259 BP: (!) 160/97 Pulse: 100 Resp: 20 Temp: 36.3 C (97.4 F) TempSrc: Temporal SpO2: 98% 99% Weight: 118 kg (260 lb) Height: 1.854 m (6' 1) Diagnoses as of 08/18/23 0448 Hematuria ED Medications managed: Medications mometasone-formoterol (Dulera 100) 100-5 MCG/ACT inhaler 2 puff (has no administration in time range) atorvastatin (Lipitor) tablet 80 mg (has no administration in time range) fluticasone (Flonase) nasal spray 1 spray (has no administration in time range) levothyroxine (Synthroid, Levoxyl) tablet 75 mcg (has no administration in time range) pantoprazole (ProtoNix) EC tablet 40 mg (has no administration in time range) tamsulosin (Flomax) 24 hr capsule 0.4 mg (has no administration in time range) cholestyramine (Questran) packet 4 g (has no administration in time range) acetaminophen (Tylenol) tablet 650 mg (has no administration in time range) Or acetaminophen (Tylenol) suppository 650 mg (has no administration in time range) ondansetron ODT (Zofran-ODT) disintegrating tablet 4 mg (has no administration in time range) Or ondansetron (Zofran) injection 4 mg (has no administration in time range) polyethylene glycol (PEG) 3350 (Miralax) packet 17 g (has no administration in time range) cefTRIAXone (Rocephin) 1,000 mg in sodium chloride 0.9 % 50 mL IVPB Mini-Bag Plus (has no administration in time range) gabapentin (Neurontin) capsule 600 mg (has no administration in time range) oxyCODONE-acetaminophen (Percocet) 5-325 MG per tablet 1 tablet (has no administration in time range) naloxone (Narcan) injection 0.4 mg (has no administration in time range) lidocaine (Uro-Jet) 2 % gel (has no administration in time range) HYDROmorphone (Dilaudid) injection 0.5 mg (0.5 mg IntraVENous Given 08/18/23 0325) EKG interpreted by me: Discussions with other clinicians: Hospitalist, about admission Medical conditions impacting care: Not anticoagulated Social determinants of health affecting care: no obvious social determinants impacting this patient's health Escalation of care, appropriate for: Admission MDM: 57-year-old male with hematuria. He is not anticoagulated. He was hemodynamically stable and his hemoglobin is appropriate. Given the pain, I got a CT scan of his abdomen and pelvis. This was reassuring. Because he failed outpatient management, I will have him admitted for further care. I ordered CBI for him. However, our nurses were unable to place the catheter for CBI. As such, we will just have the regular Conte replaced. He was admitted. CRITICAL CARE TIME PROCEDURES: Unless otherwise noted below, none Procedures FINAL IMPRESSION 1. Hematuria DISPOSITION Admit 08/18/2023 04:40:44 AM PATIENT REFERRED TO: No follow-up provider specified. DISCHARGE MEDICATIONS: New Prescriptions No medications on file (Comment: Please note this report has been produced using speech recognition software and may contain errors related to that system including errors in grammar, punctuation, and spelling, as well as words and phrases that may be inappropriate. If there are any questions or concerns please feel freeto contact the dictating provider for clarification.) Cornelius Chance MD (electronically signed) Emergency Medicine Physician Cornelius Chance MD 08/18/23 0443 Cornelius Chance MD 08/18/23 0448 Cornelius Chance MD 08/18/23 0517 [employer] Phone: [phone] Emergency department Note* Michelle Jorgensen RN - 08/17/2023 11:30 PM EDT Pt discharged with conte in place. Pt instructed to follow up with urology tomorrow. Pt verbalized understanding of discharge instructions and was assisted to vehicle via wheelchair. Michelle Jorgensen RN 08/17/23 2337 [id number] Emergency department Note* Michelle Jorgensen RN - 08/17/2023 11:30 PM EDT Pt discharged with conte in place. Pt instructed to follow up with urology tomorrow. Pt verbalized understanding of discharge instructions and was assisted to vehicle via wheelchair. Michelle Jorgensen RN 08/17/23 4248 * Michelle Jorgensen RN - 08/17/2023 11:08 PM EDT Conte catheter irrigated. Pt tolerated well. Urine draining clear Michelle Jorgensen RN 08/17/23 2310 * Delia Zepeda MD - 08/17/2023 6:56 PM EDT Emergency Department Encounter [facility] ED Patient: Sophie Hicks : 1965 Date of Evaluation: 08/17/2023 ED Provider: Delia Zepeda MD I saw the patient as the Clinician in Triage and performed a brief history and physical exam, established acuity, and ordered appropriate tests to develop basic plan of care. Patient will be seen by CODI, resident and/or my physician partner who will evaluate the patient. I wore appropriate PPE for the entirety of this encounter. Brief HPI: In brief, Sophie Hicks is a 57 y.o. that presents with chief complaint of painless hematuria. Focused Physical exam: stained shorts, unable to perform exam in triage chair. Well appearing, nontoxic. Pleasant. Plan/MDM: cbc, bmp, urinalysis, post void residual Patients symptoms are consistent with sepsis, severe sepsis, or septic shock (If yes use .sepsiscoremeasure): no Please see subsequent provider note for further details and disposition (Comment: Please note this report has been produced using speech recognition software and may contain errors related to that system including errors in grammar, punctuation, and spelling as well as words and phrases that may be inappropriate. If there are any questions or concerns please feel free to contact the dictating provider for clarification) Delia Zepeda MD Acute Care [facility] Delia Zepeda MD 08/17/231911 [facility] ED EMERGENCY DEPARTMENT ENCOUNTER Pt Name: Sophie Hicks Birthdate 1965 Date of evaluation: 08/17/2023 Provider: Delia Zepeda MD CHIEF COMPLAINT Chief Complaint Patient presents with Blood in Urine Pt presents to ED for blood leaking out of his penis. Pt states bleeding began yesterday and has progressively gotten worse. Pt states he is having a steady leaking of blood from his penis that he isunable to stop. HISTORY OF PRESENT ILLNESS (Location/Symptom, Timing/Onset, Context/Setting, Quality, Duration, Modifying Factors, Severity) Note limiting factors. I wore a surgical mask for the entirety of this encounter. Sophie Hicks is a 57 y.o. male with a past medical history of obesity, CAD, atrial fibrillation (not on blood thinners) presenting after he developed burning and discomfort with urination as well ashematuria. On 08/10/2023 patient had a UroLift procedure and had been doing well up until last nightwhen the symptoms began. Other than the dysuria, he has no abdominal discomfort, flank pain, nausea, vomiting, fevers, chills, body aches or any other symptoms. Past Medical history reviewed. REVIEW OF SYSTEMS Negative except for above HPI Review of Systems PAST MEDICAL HISTORY Past Medical History: Diagnosis Date Abdominal pain Atrial fibrillation (HCC) Back pain Benign essential HTN 01/29/2015 Blood circulation, collateral CAD (coronary artery disease) mild - dx on cath - neg stress Cerebral artery occlusion with cerebral infarction (HCC) Chronic kidney disease COPD (chronic obstructive pulmonary disease) (HCC) COVID-19 05/03 COVID-19 vaccine series completed 09/25/2020 Moderna COVID-19 vaccine series completed 12/04/2020 BOOSTER CS (cervical spondylosis) 12/25/2004 CERVICAL SPINE DJD Difficulty sleeping Dizziness GERD (gastroesophageal reflux disease) History of colonic polyps 06/21/2013 repeat 2019 Hyperlipidemia Insomnia 08/15/2014 Joint pain, hip Joint pain, knee Memory difficulties Muscle weakness Peripheral polyneuropathy 09/30/2020 Shortness of breath at rest Sleep apnea Snoring SOBOE (shortness of breath on exertion) Type 2 diabetes mellitus (HCC) 03/19/2021 SURGICAL HISTORY Past Surgical History: Procedure Laterality Date APPENDECTOMY BARIATRIC SURGERY 12/03/2021 Dr. Trevino CARDIAC CATHETERIZATION 12/17/2013 NORMAL CORONARY ARTERIES AND LVEF. COLONOSCOPY COLONOSCOPY 2020 CYSTOSCOPY 10/26/2020 CYSTOSCOPY 11/19/2020 EGD (HISTORICAL) 03/02/2023 NECK SURGERY Posterior cervical fusion ROTATOR CUFF REPAIR Bilateral UPPER GASTROINTESTINAL ENDOSCOPY 01/24/2021 Dr. Cabello CURRENT MEDICATIONS Previous Medications ADVAIR DISKUS 250-50 MCG/ACT AEROSOL POWDER INHALE 1 PUFF INTO THE LUNGS TWICE DAILY ALPRAZOLAM (XANAX) 1 MG TABLET Take 1 mg by mouth every 24 hours as needed. ASPIRIN 81 MG CHEWABLE TABLET Chew 81 mg daily. ASPIRIN 81 MG EC TABLET 81 mg daily. ATORVASTATIN (LIPITOR) 80 MG TABLET Take 80 mg by mouth daily. BACITRACIN 500 UNIT/GM OINTMENT APPLY TOPICALLY TO AFFECTED AREAS twice a day BACLOFEN (LIORESAL) 10 MG TABLET Take 10 mg by mouth 2 times daily. BUMETANIDE (BUMEX) 1 MG TABLET Take 1 mg by mouth in the morning and 1 mg before bedtime. BUPROPION XL (WELLBUTRIN XL) 150 MG 24 HR TABLET Take 150 mg by mouth daily. BUSPIRONE (BUSPAR) 10 MG TABLET Take 10 mg by mouth 2 times daily. CALCIUM CITRATE 250 MG TABLET Take 2 tablets (500 mg) by mouth in the morning and 2 tablets (500 mg) at noon and 2 tablets (500 mg) before bedtime. Take 2 tablets by mouth three times daily.. CHOLESTYRAMINE (QUESTRAN) 4 G PACKET Every 24 hours. CONTINUOUS BLOOD GLUC SENSOR (FREESTYLE ALEXANDRA 2 SENSOR) [facility] USE DIRECTED; CHANGE SENSOR EVERY 14 DAYS DIAZEPAM (VALIUM) 5 MG TABLET Take 1 tablet (5 mg) by mouth Once for 1 dose. Please take 30 minutesprior to your procedure. DICLOFENAC SODIUM (VOLTAREN) 1 % GEL apply 2 grams to affected area four times a day DICYCLOMINE (BENTYL) 10 MG CAPSULE Take 10 mg by mouth in the morning and 10 mg at noon and 10 mg in the evening and 10 mg before bedtime. EMOLLIENT (AQUAPHOR ADVANCED THERAPY) OINTMENT FLUTICASONE (FLONASE) 50 MCG/ACT NASAL SPRAY Every 24 hours. FUROSEMIDE (LASIX) 40 MG TABLET Take 40 mg by mouth daily. GABAPENTIN (NEURONTIN) 300 MG CAPSULE Take 600 mg by mouth 3 times daily. HYDROXYZINE PAMOATE (VISTARIL) 25 MG CAPSULE Take 25 mg by mouth in the morning and 25 mg before bedtime. IBUPROFEN 600 MG TABLET take 1 tablet by mouth three times a day if needed with food or milk for 10days LEVOTHYROXINE (SYNTHROID, LEVOXYL) 75 MCG TABLET METHOCARBAMOL (ROBAXIN) 500 MG TABLET Take 1.5 tablets (750 mg) by mouth every 8 hours as needed for muscle spasms for up to 5 days. MULTIPLE VITAMINS-MINERALS (MULTIVITAMIN ADULTS 50+ PO) Take by mouth. MUPIROCIN (BACTROBAN) 2 % OINTMENT NYSTATIN (MYCOSTATIN) 970091 UNIT/GM POWDER Apply to affected area 3 times daily ONDANSETRON (ZOFRAN) 4 MG TABLET take 1 tablet by mouth three times a day if needed for nausea and vomiting ONDANSETRON ODT (ZOFRAN-ODT) 4 MG DISINTEGRATING TABLET OXYCODONE-ACETAMINOPHEN (PERCOCET) 5-325 MG TABLET Take 1 tablet by mouth 2 times daily. PANTOPRAZOLE (PROTONIX) 40 MG EC TABLET take 1 tablet by mouth once daily PAROXETINE (PAXIL) 20 MG TABLET Take 20 mg by mouth every morning. POTASSIUM CHLORIDE CR (KLOR-CON M20) 20 MEQ ER TABLET as needed. PROMETHAZINE (PHENERGAN) 12.5 MG TABLET Take 12.5 mg by mouth. SENNA-DOCUSATE SODIUM (SENOKOT-S) 8.6-50 MG TABLET 1-2 tab(s) SERTRALINE (ZOLOFT) 50 MG TABLET Take 50 mg by mouth daily. SILDENAFIL (REVATIO) 20 MG TABLET take 1-5 tablets BY MOUTH NEEDED TADALAFIL (CIALIS) 5 MG TABLET Take 1 tablet (5 mg) by mouth daily. TAMSULOSIN (FLOMAX) 0.4 MG 24 HR CAPSULE Take 1 capsule (0.4 mg) by mouth daily. TAMSULOSIN (FLOMAX) 0.4 MG 24 HR CAPSULE Flomax 0.4mg take 2 pills daily, 30 minutes after meal TIZANIDINE (ZANAFLEX) 2 MG TABLET every 12 hours. TORSEMIDE (DEMADEX) 20 MG TABLET Take 20 mg by mouth daily. TRAMADOL ER (ULTRAM-ER) 300 MG 24 HR TABLET Take 300 mg by mouth 3 times daily. TRIAMCINOLONE (KENALOG) 0.1 % CREAM APPLY TO THE AFFECTED AREAS OF LOWER LEGS TWICE DAILY FOR 2 WEEKS... (REFER TO PRESCRIPTION NOTES). VENTOLIN HFA 108 (90 BASE) MCG/ACT INHALER Inhale 2 puffs every 6 hours as needed. ZINC GLUCONATE 50 MG TABLET Take 1 tablet by mouth daily. ALLERGIES Iodinated contrast media and Nsaids FAMILY HISTORY Family History Problem Relation Name Age of Onset Osteoarthritis Mother Lung cancer Mother smoker Coronary artery disease Other SOCIAL HISTORY Social History Socioeconomic History Marital status: Tobacco Use Smoking status: Never Smokeless tobacco: Never Substance and Sexual Activity Alcohol use: Never Drug use: No SCREENINGS PHYSICAL EXAM (up to 7 for level 4, 8 or more for level 5) @EDTRIAGEVSS@ Physical Exam Constitutional: Appearance: Normal appearance. HENT: Head: Normocephalic and atraumatic. Nose: Nose normal. Mouth/Throat: Mouth: Mucous membranes are moist. Eyes: Conjunctiva/sclera: Conjunctivae normal. Cardiovascular: Rate and Rhythm: Normal rate. Pulmonary: Effort: Pulmonary effort is normal. No respiratory distress. Abdominal: General: Abdomen is flat. There is no distension. Tenderness: There is no abdominal tenderness. There is no guarding. Genitourinary: Penis: Normal. Comments: Shorts or soiled with urine Musculoskeletal: General: Normal range of motion. Skin: General: Skin is warm and dry. Capillary Refill: Capillary refill takes less than 2 seconds. Neurological: Mental Status: He is alert. Psychiatric: Behavior: Behavior normal. EMERGENCY DEPARTMENT COURSE and DIFFERENTIAL DIAGNOSIS/MDM: Vitals: Vitals: 08/17/23 1906 08/17/23 1909 BP: 116/72 Pulse: (!) 116 95 Resp: 20 18 Temp: 36.6 C (97.8 F) TempSrc: Temporal SpO2: 98% 96% Medications cefTRIAXone (Rocephin) 1,000 mg in sodium chloride 0.9 % 50 mL IVPB Mini-Bag Plus (1,000 mg IntraVENous New Bag 08/17/232051) Medical Decision Making Brief HPI: In brief, Sophie Hicks is a 57 y.o. that presents with chief complaint of painless hematuria. Focused Physical exam: stained shorts, unable to perform exam in triage chair. Well appearing, nontoxic. Pleasant. Plan/MDM: cbc, bmp, urinalysis, post void residual Problems Addressed: Urinary tract infection with hematuria, site unspecified: complicated acute illness or injury Amount and/or Complexity of Data Reviewed Independent Historian: spouse External Data Reviewed: notes. Details: Urology note 08/10/2023 detailing urolift procedure. Labs: ordered. All independent interpretations of EKGs are documented in [facility]. ED Course as of 08/17/232108August 17, 20232038 PVR bladder scanner could not find bladder, confirmed no significant retention on US - relayedthis to clinical transformation specialist Dr. Sims. Recommended placing conte. Will irrigate manually, if still significant hematuria will admit for inpt urology consultation. [BJ] ED Course User Index [BJ] Delia Zepeda MD Diagnoses as of 08/17/232108 Urinary tract infection with hematuria, site unspecified CONSULTS: None PROCEDURES: Unless otherwise noted below, none Procedures FINAL IMPRESSION 1. Urinary tract infection with hematuria, site unspecified DISPOSITION/PLAN DISPOSITION PATIENT REFERRED TO: No follow-up provider specified. DISCHARGE MEDICATIONS: New Prescriptions No medications on file @[facility]([id number]:LAST:1)@ (Please note: Portions of this note were completed with a voice recognition program. Efforts were made to edit the dictations but occasionally words and phrases are mis-transcribed.) Form [id number] Delia Zepeda MD (electronically signed) Emergency Medicine Provider Delia Zepeda MD 08/17/232109 * Brijesh Snell MD - 08/17/2023 6:56 PM EDT Addendum: Conte catheter was placed per nursing staff per recommendation of urology. Initially Conte catheter produced small amount of bloody urine. This is easily irrigated to clear urine. Patient directed to call urology in the morning to follow-up closely as an outpatient. Brijesh Snell MD 08/17/232310 documented in this [facility]05-06-2024 Hospital Discharge instructions* Discharge Instructions* Brijesh Snell MD - 08/17/2023 11:[address] Sims's office in the morning to schedule recheck * Attachments The following attachments cannot be sent through Care Everywhere. * Blood in the Urine (Hematuria) Discharge Instructions, Adult (Honduran) * How to Care for Your Conte Catheter (Honduran) documented in this [facility]05-06-2024 Emergency department Note* Michelle Jorgensen RN - 08/17/2023 11:08 PM EDT Conte catheter irrigated. Pt tolerated well. Urine draining clear Michelle Jorgensen RN 08/17/232309 [id number] Emergency [facility] Note* Delia Zepeda MD - 08/17/2023 6:56 PM EDT Emergency Department Encounter [facility] ED Patient: Sophie Hicks : 1965 Date of Evaluation: 08/17/2023 ED Provider: Delia Zepeda MD I saw the patient as the Clinician in Triage and performed a brief history and physical exam, established acuity, and ordered appropriate tests to develop basic plan of care. Patient will be seen by CODI, resident and/or my physician partner who will evaluate the patient. I wore appropriate PPE for the entirety of this encounter. Brief HPI: In brief, Sophie Hicks is a 57 y.o. that presents with chief complaint of painless hematuria. Focused Physical exam: stained shorts, unable to perform exam in triage chair. Well appearing, nontoxic. Pleasant. Plan/MDM: cbc, bmp, urinalysis, post void residual Patients symptoms are consistent with sepsis, severe sepsis, or septic shock (If yes use .sepsiscoremeasure): no Please see subsequent provider note for further details and disposition (Comment: Please note this report has been produced using speech recognition software and may contain errors related to that system including errors in grammar, punctuation, and spelling as well as words and phrases that may be inappropriate. If there are any questions or concerns please feel free to contact the dictating provider for clarification) Delia Zepeda MD [employer] Delia Zepeda MD 08/17/231911 [facility] ED EMERGENCY DEPARTMENT ENCOUNTER Pt Name: Sophie Hicks Birthdate 1965 Date of evaluation: 08/17/2023 Provider: Delia Zepeda MD CHIEF COMPLAINT Chief Complaint Patient presents with Blood in Urine Pt presents to ED for blood leaking out of his penis. Pt states bleeding began yesterday and has progressively gotten worse. Pt states he is having a steady leaking of blood from his penis that he isunable to stop. HISTORY OF PRESENT ILLNESS (Location/Symptom, Timing/Onset, Context/Setting, Quality, Duration, Modifying Factors, Severity) Note limiting factors. I wore a surgical mask for the entirety of this encounter. Sophie Hicks is a 57 y.o. male with a past medical history of obesity, CAD, atrial fibrillation (not on blood thinners) presenting after he developed burning and discomfort with urination as well ashematuria. On 08/10/2023 patient had a UroLift procedure and had been doing well up until last nightwhen the symptoms began. Other than the dysuria, he has no abdominal discomfort, flank pain, nausea, vomiting, fevers, chills, body aches or any other symptoms. Past Medical history reviewed. REVIEW OF SYSTEMS Negative except for above HPI Review of Systems PAST MEDICAL HISTORY Past Medical History: Diagnosis Date Abdominal pain Atrial fibrillation (HCC) Back pain Benign essential HTN 01/29/2015 Blood circulation, collateral CAD (coronary artery disease) mild - dx on cath - neg stress Cerebral artery occlusion with cerebral infarction (HCC) Chronic kidney disease COPD (chronic obstructive pulmonary disease) (HCC) COVID-19 05/03 COVID-19 vaccine series completed 09/25/2020 Moderna COVID-19 vaccine series completed 12/04/2020 BOOSTER CS (cervical spondylosis) 12/25/2004 CERVICAL SPINE DJD Difficulty sleeping Dizziness GERD (gastroesophageal reflux disease) History of colonic polyps 06/21/2013 repeat 2019 Hyperlipidemia Insomnia 08/15/2014 Joint pain, hip Joint pain, knee Memory difficulties Muscle weakness Peripheral polyneuropathy 09/30/2020 Shortness of breath at rest Sleep apnea Snoring SOBOE (shortness of breath on exertion) Type 2 diabetes mellitus (HCC) 03/19/2021 SURGICAL HISTORY Past Surgical History: Procedure Laterality Date APPENDECTOMY BARIATRIC SURGERY 12/03/2021 Dr. Trevino CARDIAC CATHETERIZATION 12/17/2013 NORMAL CORONARY ARTERIES AND LVEF. COLONOSCOPY COLONOSCOPY 2020 CYSTOSCOPY 10/26/2020 CYSTOSCOPY 11/19/2020 EGD (HISTORICAL) 03/02/2023 NECK SURGERY Posterior cervical fusion ROTATOR CUFF REPAIR Bilateral UPPER GASTROINTESTINAL ENDOSCOPY 01/24/2021 Dr. Cabello CURRENT MEDICATIONS Previous Medications ADVAIR DISKUS 250-50 MCG/ACT AEROSOL POWDER INHALE 1 PUFF INTO THE LUNGS TWICE DAILY ALPRAZOLAM (XANAX) 1 MG TABLET Take 1 mg by mouth every 24 hours as needed. ASPIRIN 81 MG CHEWABLE TABLET Chew 81 mg daily. ASPIRIN 81 MG EC TABLET 81 mg daily. ATORVASTATIN (LIPITOR) 80 MG TABLET Take 80 mg by mouth daily. BACITRACIN 500 UNIT/GM OINTMENT APPLY TOPICALLY TO AFFECTED AREAS twice a day BACLOFEN (LIORESAL) 10 MG TABLET Take 10 mg by mouth 2 times daily. BUMETANIDE (BUMEX) 1 MG TABLET Take 1 mg by mouth in the morning and 1 mg before bedtime. BUPROPION XL (WELLBUTRIN XL) 150 MG 24 HR TABLET Take 150 mg by mouth daily. BUSPIRONE (BUSPAR) 10 MG TABLET Take 10 mg by mouth 2 times daily. CALCIUM CITRATE 250 MG TABLET Take 2 tablets (500 mg) by mouth in the morning and 2 tablets (500 mg) at noon and 2 tablets (500 mg) before bedtime. Take 2 tablets by mouth three times daily.. CHOLESTYRAMINE (QUESTRAN) 4 G PACKET Every 24 hours. CONTINUOUS BLOOD GLUC SENSOR (FREESTYLE ALEXANDRA 2 SENSOR) [facility] USE DIRECTED; CHANGE SENSOR EVERY 14 DAYS DIAZEPAM (VALIUM) 5 MG TABLET Take 1 tablet (5 mg) by mouth Once for 1 dose. Please take 30 minutesprior to your procedure. DICLOFENAC SODIUM (VOLTAREN) 1 % GEL apply 2 grams to affected area four times a day DICYCLOMINE (BENTYL) 10 MG CAPSULE Take 10 mg by mouth in the morning and 10 mg at noon and 10 mg in the evening and 10 mg before bedtime. EMOLLIENT (AQUAPHOR ADVANCED THERAPY) OINTMENT FLUTICASONE (FLONASE) 50 MCG/ACT NASAL SPRAY Every 24 hours. FUROSEMIDE (LASIX) 40 MG TABLET Take 40 mg by mouth daily. GABAPENTIN (NEURONTIN) 300 MG CAPSULE Take 600 mg by mouth 3 times daily. HYDROXYZINE PAMOATE (VISTARIL) 25 MG CAPSULE Take 25 mg by mouth in the morning and 25 mg before bedtime. IBUPROFEN 600 MG TABLET take 1 tablet by mouth three times a day if needed with food or milk for 10days LEVOTHYROXINE (SYNTHROID, LEVOXYL) 75 MCG TABLET METHOCARBAMOL (ROBAXIN) 500 MG TABLET Take 1.5 tablets (750 mg) by mouth every 8 hours as needed for muscle spasms for up to 5 days. MULTIPLE VITAMINS-MINERALS (MULTIVITAMIN ADULTS 50+ PO) Take by mouth. MUPIROCIN (BACTROBAN) 2 % OINTMENT NYSTATIN (MYCOSTATIN) 322268 UNIT/GM POWDER Apply to affected area 3 times daily ONDANSETRON (ZOFRAN) 4 MG TABLET take 1 tablet by mouth three times a day if needed for nausea and vomiting ONDANSETRON ODT (ZOFRAN-ODT) 4 MG DISINTEGRATING TABLET OXYCODONE-ACETAMINOPHEN (PERCOCET) 5-325 MG TABLET Take 1 tablet by mouth 2 times daily. PANTOPRAZOLE (PROTONIX) 40 MG EC TABLET take 1 tablet by mouth once daily PAROXETINE (PAXIL) 20 MG TABLET Take 20 mg by mouth every morning. POTASSIUM CHLORIDE CR (KLOR-CON M20) 20 MEQ ER TABLET as needed. PROMETHAZINE (PHENERGAN) 12.5 MG TABLET Take 12.5 mg by mouth. SENNA-DOCUSATE SODIUM (SENOKOT-S) 8.6-50 MG TABLET 1-2 tab(s) SERTRALINE (ZOLOFT) 50 MG TABLET Take 50 mg by mouth daily. SILDENAFIL (REVATIO) 20 MG TABLET take 1-5 tablets BY MOUTH NEEDED TADALAFIL (CIALIS) 5 MG TABLET Take 1 tablet (5 mg) by mouth daily. TAMSULOSIN (FLOMAX) 0.4 MG 24 HR CAPSULE Take 1 capsule (0.4 mg) by mouth daily. TAMSULOSIN (FLOMAX) 0.4 MG 24 HR CAPSULE Flomax 0.4mg take 2 pills daily, 30 minutes after meal TIZANIDINE (ZANAFLEX) 2 MG TABLET every 12 hours. TORSEMIDE (DEMADEX) 20 MG TABLET Take 20 mg by mouth daily. TRAMADOL ER (ULTRAM-ER) 300 MG 24 HR TABLET Take 300 mg by mouth 3 times daily. TRIAMCINOLONE (KENALOG) 0.1 % CREAM APPLY TO THE AFFECTED AREAS OF LOWER LEGS TWICE DAILY FOR 2 WEEKS... (REFER TO PRESCRIPTION NOTES). VENTOLIN HFA 108 (90 BASE) MCG/ACT INHALER Inhale 2 puffs every 6 hours as needed. ZINC GLUCONATE 50 MG TABLET Take 1 tablet by mouth daily. ALLERGIES Iodinated contrast media and Nsaids FAMILY HISTORY Family History Problem Relation Name Age of Onset Osteoarthritis Mother Lung cancer Mother smoker Coronary artery disease Other SOCIAL HISTORY Social History Socioeconomic History Marital status: Tobacco Use Smoking status: Never Smokeless tobacco: Never Substance and Sexual Activity Alcohol use: Never Drug use: No SCREENINGS PHYSICAL EXAM (up to 7 for level 4, 8 or more for level 5) @EDTRIAGEVSS@ Physical Exam Constitutional: Appearance: Normal appearance. HENT: Head: Normocephalic and atraumatic. Nose: Nose normal. Mouth/Throat: Mouth: Mucous membranes are moist. Eyes: Conjunctiva/sclera: Conjunctivae normal. Cardiovascular: Rate and Rhythm: Normal rate. Pulmonary: Effort: Pulmonary effort is normal. No respiratory distress. Abdominal: General: Abdomen is flat. There is no distension. Tenderness: There is no abdominal tenderness. There is no guarding. Genitourinary: Penis: Normal. Comments: Shorts or soiled with urine Musculoskeletal: General: Normal range of motion. Skin: General: Skin is warm and dry. Capillary Refill: Capillary refill takes less than 2 seconds. Neurological: Mental Status: He is alert. Psychiatric: Behavior: Behavior normal. EMERGENCY DEPARTMENT COURSE and DIFFERENTIAL DIAGNOSIS/MDM: Vitals: Vitals: 08/17/23 1906 08/17/23 1909 BP: 116/72 Pulse: (!) 116 95 Resp: 20 18 Temp: 36.6 C (97.8 F) TempSrc: Temporal SpO2: 98% 96% Medications cefTRIAXone (Rocephin) 1,000 mg in sodium chloride 0.9 % 50 mL IVPB Mini-Bag Plus (1,000 mg IntraVENous New Bag 08/17/232051) Medical Decision Making Brief HPI: In brief, Sophie Hicks is a 57 y.o. that presents with chief complaint of painless hematuria. Focused Physical exam: stained shorts, unable to perform exam in triage chair. Well appearing, nontoxic. Pleasant. Plan/MDM: cbc, bmp, urinalysis, post void residual Problems Addressed: Urinary tract infection with hematuria, site unspecified: complicated acute illness or injury Amount and/or Complexity of Data Reviewed Independent Historian: spouse External Data Reviewed: notes. Details: Urology note 08/10/2023 detailing urolift procedure. Labs: ordered. All independent interpretations of EKGs are documented in [facility]. ED Course as of 08/17/232108August 17, 20232038 PVR bladder scanner could not find bladder, confirmed no significant retention on US - relayedthis to clinical transformation specialist Dr. Sims. Recommended placing conte. Will irrigate manually, if still significant hematuria will admit for inpt urology consultation. [BJ] ED Course User Index [BJ] Delia Zepeda MD Diagnoses as of 08/17/232108 Urinary tract infection with hematuria, site unspecified CONSULTS: None PROCEDURES: Unless otherwise noted below, none Procedures FINAL IMPRESSION 1. Urinary tract infection with hematuria, site unspecified DISPOSITION/PLAN DISPOSITION PATIENT REFERRED TO: No follow-up provider specified. DISCHARGE MEDICATIONS: New Prescriptions No medications on file @[facility]([id number]:LAST:1)@ (Please note: Portions of this note were completed with a voice recognition program. Efforts were made to edit the dictations but occasionally words and phrases are mis-transcribed.) Form [id number] Delia Zepeda MD (electronically signed) Emergency Medicine Provider Delia Zepeda MD 08/17/232109 [id number] Emergency department Note* Brijesh Snell MD - 08/17/2023 6:56 PM EDT Addendum: Conte catheter was placed per nursing staff per recommendation of urology. Initially Conte catheter produced small amount of bloody urine. This is easily irrigated to clear urine. Patient directed to call urology in the morning to follow-up closely as an outpatient. Brijesh Snell MD 08/17/231 [id number] Telephone encounter Note* Telephone Encounter - Lisandro Mojica - 08/11/2023 9:14 AM EDT Received prior authorization denial. Scanned into chart. Faxed an appeal to [facility]. [id number] Miscellaneous Notes* Telephone Encounter - Lisandro Mojica - 08/11/2023 9:14 AM EDT Received prior authorization denial. Scanned into chart. * Telephone Encounter - Lisandro Mojica - 08/10/2023 10:55 AM EDT Patient called into office letting our office know he received a denial by mail. * Telephone Encounter - Lisandro Mojica - 08/05/2023 9:14 AM EDT Patient called into office wanting to schedule surgery. Informed patient we are still waiting for adetermination from insurance. He voiced understanding. * Telephone Encounter - Lisandro Mojica - 06/24/2023 9:27 AM EDT Case# Procedure: Panniculectomy Sx Date: Time: 3.5 hrs Location: [facility] Anesthesia: General CPT: 22003 ICD-10: E65 Special Equipment: N/A PAT: [facility] Faxed prior authorization request to [facility]. Confirmation fax received. documented in this [facility]04-30-2024 Miscellaneous Notes* Telephone Encounter - Lisandro Mojica - 08/11/2023 9:14 AM EDT Received prior authorization denial. Scanned into chart. Faxed an appeal to [facility]. * Telephone Encounter - Lisandro Mojica - 08/10/2023 10:55 AM EDT Patient called into office letting our office know he received a denial by mail. * Telephone Encounter - Lisandro Mojica - 08/05/2023 9:14 AM EDT Patient called into office wanting to schedule surgery. Informed patient we are still waiting for adetermination from insurance. He voiced understanding. * Telephone Encounter - Lisandro Mojica - 06/24/2023 9:27 AM EDT Case# Procedure: Panniculectomy Sx Date: Time: 3.5 hrs Location: [facility] Anesthesia: General CPT: 16249 ICD-10: E65 Special Equipment: N/A PAT: [facility] Faxed prior authorization request to [facility]. Confirmation fax received. documented in this [facility]04-29-2024 History of Present illness Narrative* Shirley Giang MA - 08/10/2023 2:20 PM EDT UROJET 2% LIDOCAINE JELLY [facility] [id number] LOT [id number] EXP 11/2025 ADMINISTERED BY SHIRLEY GIANG [facility] PATIENT TOLERATED WELL * Cristo Coyne MD - 08/10/2023 2:20 PM EDT Images from the original note were not included. OFFICE CYSTOSCOPY REPORT PATIENT NAME: Sophie Hicks DATE OF : 1965 TODAY'S DATE: 08/10/2023 PreOp Dx::BPH PostOp Dx: Same Operation Cystoscopy Surgeon Cristo Coyne MD Anesthesia:lidociane jelly Specimen Complications None; patient tolerated the procedure well. INDICATIONS: Sophie Hicks , is a 57 y.o. male who has BPH . He presents for cystoscopy. The risks, benefits, complications, treatment options, and expected outcomes were discussed with the patient. The patient concurred with the proposed plan, giving informed consent. PROCEDURE: Sophie Hicks Was brought to the procedure room. Thorough time out was performed and everyone present was in agreement. Patient was placed in the supine position, prepped with Betadine, and draped in the usual sterile fashion. A flexible cystoscope was used to inspect the urethra, prostate and bladder. After thorough inspection the scope was removed. FINDINGS: The Urethra is normal. Prostate:bilobar bph Bladder: Moderate trabeculation. Ureteral orifice(s) Ureteral orifice(s) was/were seen and both were in normal location effluxing clear urine. Impression/Plan Sophie was seen today for procedure. Diagnoses and all orders for this visit: Benign prostatic hyperplasia with post-void dribbling (Primary) - tamsulosin (Flomax) 0.4 MG 24 hr capsule; Flomax 0.4mg take 2 pills daily, 30 minutes after meal - tadalafil (Cialis) 5 MG tablet; Take 1 tablet (5 mg) by mouth daily. Follow up for vv in 6-8 weeks at the end of a Thursday. Bph-hx of urolift. Still with slow stream and post mict dribble. 08/10/23 cysto with mod bilobar bph, no tcc. Inc flomax to 2 pills per day. Start cialis 5mg daily. Vv in 6 weeks. If no better consider turp Ed-switch from viagra to daily cialis Obese-had bariatric surgery lost 240 lb getting addominoplasty by Dr Gutierrez. Cristo Coyne MD 08/10/23 3:02 PM documented in this encounterSParkview [id number] Telephone encounter Note* Telephone Encounter - Lisandro Mojica - 08/10/2023 10:55 AM EDT Patient called into office letting our office know he received a denial by mail. [place] [id number] History of Present illness Narrative* Mattie Lopez MD - 08/10/2023 8:40 AM EDT * Cheyenne Whitman MA - 08/10/2023 8:40 AM EDT [facility] ROOMING NOTE POST WEIGHT LOSS SURGERY FOLLOW UP Patient: Sophie Cobb Kurt Service Date: 08/10/2023 Patient is 1 year(s) s/p Sleeve Gastrectomy Today's Metrics: Post-Surgical Weight Loss Date: 08/10/23 Height: 5' 11.75 (182.2 cm) Weight: 270 lb 3.2 oz (123 kg) BMI: 36.90 Weight Change: -14.4 lbs Total Weight Change: -84 lbs % EBWL: 47% Comments: D/E POP F/U Post-op Weight Metrics: Post-Surgical Weight Loss Date: 08/10/23 Height: 5' 11.75 (182.2 cm) Weight: 270 lb 3.2 oz (123 kg) BMI: 36.90 Weight Change: -14.4 lbs Total Weight Change: -84 lbs % EBWL: 47% Comments: D/E POP F/U (From Surgical Weight Loss Tracker) Patient has the following questions: None Reported Pain: Patient rates pain on scale 0-10 as: 0 Exercise Compliance: Exercising: yes If yes: Type: WEIGHT WALKING Times per week: 5 Min per session: 60 Falls Risk Assessment Patient does take medications which affect BP or mental status Patient does not t have newly prescribed or changed dosage of medications within past 30 days whichaffect BP or mental status Patient has not fallen in the past 2 months Patient does not t demonstrate unsteady gait Patient uses the following ambulatory assistive devices: NONE Patient states the presence of the following traits which increases risk of fall: NONE Patient is not on home O2 Pre-op Weight Metrics: Labs Completed: yes - If NO, patient instructed to get labs drawn today or NATASHA If YES: Labs completed at [facility]? no If yes see Labs Tab Labs completed at Non-[facility] facility? no If yes see Encounters Tab - Orders only - Historical Provider - Date: Completed by: Cheyenne Whitman MA * Mattie Lopez MD - 08/10/2023 8:40 AM EDT [facility] POST-OP WEIGHT LOSS MANAGEMENT PROGRESS NOTE FOLLOW UP HPI, PHYSICAL EXAMINATION & PLAN HPI: Patient here today for follow up for weight loss management following surgical weight loss Weight trend since last visit: lost 14 lbs in 1 month. Pt doing well with diet, con't to lose wt. Pt has significant excess skin of abdomen, awaiting surgery. This patient's excess weight is causing the following co-morbid conditions at this time: GERD, HighCholesterol, and Obesity Plan Physical Examination: Ht 5' 11.75 (1.822 m) Wt 270 lb 3.2 oz (123 kg) BMI 36.90 kg/m General: This patient is Alert General: This patient is awake, alert, and oriented, and is in no apparent distress. Extremities: No cyanosis, clubbing or edema/ No calf tenderness/No restrictions of movement, is ambulatory without assistance. Neurological: Intact x 4 extremities, no focal deficits notes. Skin: No rashes or lesions noted. Social History: This patient is alone for the evaluation today. He does not smoke, and does not drink alcohol. Current Diet This patient s current diet is:none His diet contains adequate amounts of protein, adequate amounts of healthy fats, adequate amounts of green, leafy vegetables, and adequate amounts of fruits. His comfort foods include: none Current Eating Behaviors This patients demonstrates the following behaviors as they relate to his eating: none He eats approximately 4-5 times per day. Progress Made Towards Goals: 3 month weight goal: 15 6 month weight goal: 30 12 month weight goal: 60 Wt goal 200 lbs Plan: Diagnosis Plan 1. GERD without esophagitis 2. Hyperlipidemia associated with type 2 diabetes mellitus (HCC) ([facility]) 3. BMI 36.0-36.9,adult 4. Class 2 severe obesity due to excess calories with serious comorbidity and body mass index (BMI)of 38.0 to 38.9 in adult ([facility]) GERD- stable, con't PPI, will monitor. Hyperlipidemia- stable, on statin per other provider, con't tx as prescribed. Obesity- Stable chronic, pt doing very well with diet, pt working on getting abd skin removal. F/U 6 months, POP labs next month, con't supplements. MDM- pt's medical conditions place them at moderate risk of complications, morbidity and mortality. [x] Protein goal of 1g protein per 1 kg of ideal body weight: 80 grams [] Patient advised to maintain a food/exercise/behavior diary until next physician visit. Pt to bring the completed diary to next visit Other: Physician Diet Recommendations given to patient See Follow up Section of today's encounter for next visit and additional scheduling orders documented in this [facility]04-24-2024 Telephone encounter Note* Telephone Encounter - Lisandro Mojica - 08/05/2023 9:14 AM EDT Patient called into office wanting to schedule surgery. Informed patient we are still waiting for adetermination from insurance. He voiced understanding. [place] [id number] History of Present illness Narrative* Deb FernandaChristine Kent, GREG - FERRYBOAT OPERATOR HELPER - 08/03/2023 9:00 AM EDT Images from the original note were not included. Deb Kent, GREG - FERRYBOAT OPERATOR HELPER 08/03/2023 at 9:22 AM Urology Office Visit PATIENT NAME: Sophie Hicks DATE OF : 1965 TODAY'S DATE: 08/03/2023 CHIEF COMPLAINT: Chief Complaint Patient presents with Benign Prostatic Hypertrophy States urinary urgency and frequency, states has urinary incontinence and post void dribbling, states he really has to push hard to empty his bladder and feels as if he's not fully emptying with voiding, denies gross hematuria, states occasional urinary hesitancy, states urine stream is weak Subjective: Mr. Hicks is a 57 y.o. male who presents to the office regarding follow up. HPI Patient was last seen in office on 11/08/2020 for BPH He is on Tamsulosin 0.4 mg daily Patient did undergo Urolift [place] [address] Whittaker Today he reports to feeling well however his urinary symptoms have not improved. He reports that his urine just drips out. He reports that he really has to push hard to void. Symptoms have been chronic, worsening Voids q 2 hrs. Nocturia x 3. Urgency: Denies. UUI: Sometimes. DIMITRIS: Denies. Dysuria: Sometimes. Hematuria: Denies. Stream is weak. Sometimes will have stream dribble out He feels that he does not completely empty bladder when voiding. Yes- urinary hesitancy or intermittency. Review of Systems Constitutional: Negative for chills and fever. Genitourinary: Positive for difficulty urinating, frequency and urgency. Negative for dysuria, flank pain and hematuria. Past Medical History: Past Medical History: Diagnosis Date Abdominal pain Atrial fibrillation (HCC) Back pain Benign essential HTN 01/29/2015 Blood circulation, collateral CAD (coronary artery disease) mild - dx on cath - neg stress Cerebral artery occlusion with cerebral infarction (HCC) Chronic kidney disease COPD (chronic obstructive pulmonary disease) (HCC) COVID-19 05/03 COVID-19 vaccine series completed 09/25/2020 Moderna COVID-19 vaccine series completed 12/04/2020 BOOSTER CS (cervical spondylosis) 12/25/2004 CERVICAL SPINE DJD Difficulty sleeping Dizziness GERD (gastroesophageal reflux disease) History of colonic polyps 06/21/2013 repeat 2019 Hyperlipidemia Insomnia 08/15/2014 Joint pain, hip Joint pain, knee Memory difficulties Muscle weakness Peripheral polyneuropathy 09/30/2020 Shortness of breath at rest Sleep apnea Snoring SOBOE (shortness of breath on exertion) Type 2 diabetes mellitus (HCC) 03/19/2021 Past Surgical History: Past Surgical History: Procedure Laterality Date APPENDECTOMY BARIATRIC SURGERY 12/03/2021 Dr. Trevino CARDIAC CATHETERIZATION 12/17/2013 NORMAL CORONARY ARTERIES AND LVEF. COLONOSCOPY COLONOSCOPY 2020 CYSTOSCOPY 10/26/2020 CYSTOSCOPY 11/19/2020 EGD (HISTORICAL) 03/02/2023 NECK SURGERY Posterior cervical fusion ROTATOR CUFF REPAIR Bilateral UPPER GASTROINTESTINAL ENDOSCOPY 01/24/2021 Dr. Cabello Medications Prior to Admission medications Medication Sig Start Date End Date Taking? Authorizing Provider Advair Diskus 250-50 MCG/ACT aerosol powder INHALE 1 PUFF INTO THE LUNGS TWICE DAILY 04/25/22 Savanah Gomez MD ALPRAZolam (Xanax) 1 MG tablet Take 1 mg by mouth every 24 hours as needed. 12/02/21 Historical Provider, aspirin 81 MG chewable tablet Chew 81 mg daily. Historical Provider, aspirin 81 MG EC tablet 81 mg daily. 09/25/20 Historical Provider, atorvastatin (Lipitor) 80 MG tablet Take 80 mg by mouth daily. 03/02/22 Historical Provider, bacitracin 500 UNIT/GM ointment APPLY TOPICALLY TO AFFECTED AREAS twice a day 08/07/22 Historical Provider, baclofen (Lioresal) 10 MG tablet Take 10 mg by mouth 2 times daily. 03/19/22 Historical Provider, bumetanide (Bumex) 1 MG tablet Take 1 mg by mouth in the morning and 1 mg before bedtime. 03/02/22 Historical Provider, buPROPion XL (Wellbutrin XL) 150 MG 24 hr tablet Take 150 mg by mouth daily. 03/10/22 Historical Provider, busPIRone (Buspar) 10 MG tablet Take 10 mg by mouth 2 times daily. 01/26/23 Historical Provider, calcium citrate 250 MG tablet Take 2 tablets (500 mg) by mouth in the morning and 2 tablets (500 mg) at noon and 2 tablets (500 mg) before bedtime. Take 2 tablets by mouth three times daily.. 03/24/22 Priyank Guillory, PLANT OPERATOR CONTROL ROOM OPERATOR - FERRYBOAT OPERATOR HELPER Continuous Blood Gluc Sensor (FreeStyle Alexandra 2 Sensor) [facility] [place]ED; CHANGE SENSOR EVERY 14 DAYS 09/18/22 Historical Provider, Diclofenac Sodium (Voltaren) 1 % gel apply 2 grams to affected area four times a day 11/09/21 Historical Provider, dicyclomine (Bentyl) 10 MG capsule Take 10 mg by mouth in the morning and 10 mg at noon and 10 mg in the evening and 10 mg before bedtime. 12/19/21 Historical Provider, Emollient (Aquaphor Advanced Therapy) ointment 07/05/21 Historical Provider, fluticasone (Flonase) 50 MCG/ACT nasal spray Every 24 hours. 03/12/21 Historical Provider, furosemide (Lasix) 40 MG tablet Take 40 mg by mouth daily. 07/05/21 Historical Provider, gabapentin (Neurontin) 300 MG capsule Take 600 mg by mouth 3 times daily. 03/02/22 Historical Provider, hydrOXYzine pamoate (Vistaril) 25 MG capsule Take 25 mg by mouth in the morning and 25 mg before bedtime. 02/17/22 Historical Provider, ibuprofen 600 MG tablet take 1 tablet by mouth three times a day if needed with food or milk for 10days 08/06/22 Historical Provider, levothyroxine (Synthroid, Levoxyl) 75 MCG tablet 03/19/22 Historical Provider, methocarbamol (Robaxin) 500 MG tablet Take 1.5 tablets (750 mg) by mouth every 8 hours as needed for muscle spasms for up to 5 days. 06/10/22 06/15/22 Fiordaliza Cuellar, DO Multiple Vitamins-Minerals (MULTIVITAMIN ADULTS 50+ PO) Take by mouth. Historical Provider, mupirocin (Bactroban) 2 % ointment 02/17/22 Historical Provider, nystatin (Mycostatin) 212143 UNIT/GM powder Apply to affected area 3 times daily 07/14/23 07/13/24 Sherlyn Del Rio PA-C ondansetron ODT (Zofran-ODT) 4 MG disintegrating tablet 01/31/22 Historical Provider, oxyCODONE-acetaminophen (Percocet) 5-325 MG tablet Take 1 tablet by mouth 2 times daily. 01/30/23 Historical Provider, pantoprazole (ProtoNix) 40 MG EC tablet take 1 tablet by mouth once daily 07/20/23 Harsha Bell NP PARoxetine (Paxil) 20 MG tablet Take 20 mg by mouth every morning. 03/02/22 Historical Provider, potassium chloride CR (Klor-Con M20) 20 MEQ ER tablet as needed. 11/04/21 Historical Provider, promethazine (Phenergan) 12.5 MG tablet Take 12.5 mg by mouth. Historical Provider, senna-docusate sodium (Senokot-S) 8.6-50 MG tablet 1-2 tab(s) 04/30/21 Historical Provider, sertraline (Zoloft) 50 MG tablet Take 50 mg by mouth daily. 01/23/23 Historical Provider, sildenafil (Revatio) 20 MG tablet take 1-5 tablets BY MOUTH NEEDED 06/11/21 Historical Provider, sildenafil (Viagra) 100 MG tablet Every 24 hours. 06/14/21 Historical Provider, tamsulosin (Flomax) 0.4 MG 24 hr capsule Take 0.4 mg by mouth daily. 05/07/21 Historical Provider, torsemide (Demadex) 20 MG tablet Take 20 mg by mouth daily. 09/25/20 Historical Provider, traMADol ER (Ultram-ER) 300 MG 24 hr tablet Take 300 mg by mouth 3 times daily. 07/01/21 Historical Provider, triamcinolone (Kenalog) 0.1 % cream APPLY TO THE AFFECTED AREAS OF LOWER LEGS TWICE DAILY FOR 2 WEEKS... (REFER TO PRESCRIPTION NOTES). 06/24/21 Historical Provider, Ventolin HFA 108 (90 Base) MCG/ACT inhaler Inhale 2 puffs every 6 hours as needed. 03/19/22 Historical Provider, Vitals: BP 132/83 Pulse 79 Ht 6' 1.5 (1.867 m) Wt 269 lb (122 kg) BMI 35.01 kg/m Physical Exam Constitutional: General: He is not in acute distress. Appearance: Normal appearance. Neurological: Mental Status: He is alert and oriented to person, place, and time. Labs: Lab Results Component Value Date CREATININE 1.13 04/10/2023 HEMOGLOBIN Date Value Ref Range Status 03/22/2022 14.1 13.2 - 17.1 g/dL Final Hemoglobin Date Value Ref Range Status 04/10/2023 14.4 13.0 - 18.0 g/dL Final 03/04/2023 14.7 13.0 - 18.0 g/dL Final 03/03/2023 14.1 13.0 - 18.0 g/dL Final HEMATOCRIT Date Value Ref Range Status 03/22/2022 43.0 38.5 - 50.0 % Final Hematocrit Date Value Ref Range Status 04/10/2023 42.4 40.0 - 52.0 % Final 03/04/2023 43.2 40.0 - 52.0 % Final 03/03/2023 41.8 40.0 - 52.0 % Final PSA Total Date Value Ref Range Status 08/09/2020 2.065 <4.000 ng/mL Final Comment: Testing performed on the [employer] 5600 using an immunometric methodology. Results obtained by different methods should not be used interchangeably. Radiology Review: N/A Procedure: PVR - 0 ml Impression/Plan Diagnoses and all orders for this visit: Benign prostatic hyperplasia with post-void dribbling - Measure post void residual - diazePAM (Valium) 10 MG tablet; Take 1 tablet (10 mg) by mouth Once for 1 dose. Please take 30 minutes prior to your procedure. - tamsulosin (Flomax) 0.4 MG 24 hr capsule; Take 1 capsule (0.4 mg) by mouth daily. Anxiety due to invasive procedure - diazePAM (Valium) 10 MG tablet; Take 1 tablet (10 mg) by mouth Once for 1 dose. Please take 30 minutes prior to your procedure. - Here for follow up - PVR 0 ml - Continue Tamsulosin 0.4 mg daily. Refill sent at this time - Discussed office cystoscopy/TRUS to further evaluate dribbling and difficulty emptying bladder. Patient verbalized understanding and did report some anxiety about this. - Rx for Valium 5 mg prior to procedure sent to pharmacy on file. 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 He verbalized understanding - The patient was instructed to call the office or go to the nearest ER if worsening symptoms such as fever > 101F, inability to urinate, intractable nausea or vomiting, or uncontrolled pain. The patient verbalizes understanding. - Follow up for office cystoscopy/TRUS Follow Up: Follow up for Cystoscopy/TRUS. --Deb Kent CNP, PLANT OPERATOR CONTROL ROOM OPERATOR on 08/03/2023 at 9:22 AM An electronic signature was used to authenticate this note. * Yani Stewart RN - 08/03/2023 9:00 AM EDT PVR 0ml documented in this encounterSParkview [id number] Telephone encounter Note* Telephone Encounter - Harsha De La Cruz RN - 07/20/2023 10:55 AM EDT Images from the original note were not included. LSG 12/03/2021- Pozsgay Last OV-06/22/23 with KMW, next 08/10/23 with KWM Per last OV note: Rx sent on 04/03/23 for protonix 40mg daily with #120 and no refills. Per TE from 04/03/23: Will route to [facility] for review of [facility]ill [id number] Miscellaneous Notes* Telephone Encounter - Harsha De La Cruz RN - 07/20/2023 10:55 AM EDT Images from the original note were not included. LSG 12/03/2021- Pozsgay Last OV-06/22/23 with KMW, next 08/10/23 with KWM Per last OV note: Rx sent on 04/03/23 for protonix 40mg daily with #120 and no refills. Per TE from 04/03/23: Will route to S for review of refill request documented in this [facility]04-02-2024 Telephone encounter Note* Telephone Encounter - Vanessa Posada - 07/14/2023 11:55 AM EDT Pt called in asking to speak with Sherlyn in regards to something they discussed and she was going to look into for him. Please call. [place] [id number] Miscellaneous Notes* Telephone Encounter - Vanessa Posada - 07/14/2023 11:55 AM EDT Pt called in asking to speak with Sherlyn in regards to something they discussed and she was going to look into for him. Please call. * Telephone Encounter - Randy Keita - 07/14/2023 7:05 AM EDT Name of caller: Sophie Contact phone number: [phone] Relationship to Patient: [facility] Chief Complaint/Reason for Call: Pt is asking if the Dr is going to call in that medication that kali the discussed that will help him lose the last bit of weight before surgery. Please call to discuss Best time of day caller can be reached: Patient advised that office/PCP has 24-48 business hours to return their call: documented in this [place] [id number] Telephone encounter Note* Telephone Encounter - Randy Keita - 07/14/2023 7:05 AM EDT Name of caller: Sophie Contact phone number: [phone] Relationship to Patient: patient [facility] Chief Complaint/Reason for Call: Pt is asking if the Dr is going to call in that medication that kali the discussed that will help him lose the last bit of weight before surgery. Please call to discuss Best time of day caller can be reached: Patient advised that office/PCP has 24-48 business hours to return their call: [id number] Telephone encounter Note* Telephone Encounter - Lisandro Galina - 06/24/2023 9:27 AM EDT Case# [id number] Procedure: Panniculectomy Sx Date: 09/23/2023 9:00 am Time: 3.5 hrs Location: [facility] Anesthesia: General CPT: 83541 ICD-10: E65 Special Equipment: N/A PAT: [facility] 09/16/2023 2:30 pm Faxed prior authorization request to [facility]. Confirmation fax received. Authorization # [id number] approved and scanned into chart. Spoke with patient to schedule. Went over surgical details and sent Mychart. [id number] History of Present illness Narrative* Beto Gutierrez MD - 06/23/2023 10:00 AM EDT Plastic Sugery Consultation CC: Chief Complaint Patient presents with New Patient HPI: Sophie Hicks is a 57 y.o. male who presents for evaluation of symptomatic abdominal pannus. Patient approximately 19 months ago underwent bariatric surgery. At that time, patient's BMI was near 50. After bariatric surgery, patient has had dramatic success with weight loss. Patient has maintained excellent protein intake, regular diet, and consistent exercise. Patient is lost the vast majority of his excess body weight and BMI has been between 35 and 37. Patient states his weight has been stable for at least the last 10 months. Patient states that after approximately 6 months of weight loss he began having symptomatic skin issues. Patient has symptomatic abdominal pannus that overhangs his pubic tubercle, overhangs and partially buries his genitals, with symptomatic skin issues including rashes, irritation, and pulling onhis back. Patient states this interferes with his daily activity including ambulation and daily activity as well as urination and other bodily functions. Patient states despite regular and consistent diet and exercise the symptoms have worsened with weight loss and extra skin. Patient has attempted many conservative measures including meticulous hygiene, skin care, topical antifungals, compression garments/clothing. This has not resulted in improveme nt. Patient presents for plastic surgery evaluation. Past Medical History: Diagnosis Date Abdominal pain Atrial fibrillation (HCC) Back pain Benign essential HTN 01/29/2015 Blood circulation, collateral CAD (coronary artery disease) mild - dx on cath - neg stress Cerebral artery occlusion with cerebral infarction (HCC) Chronic kidney disease COPD (chronic obstructive pulmonary disease) (HCC) COVID-19 05/03 COVID-19 vaccine series completed 09/25/2020 Moderna COVID-19 vaccine series completed 12/04/2020 BOOSTER CS (cervical spondylosis) 12/25/2004 CERVICAL SPINE DJD Difficulty sleeping Dizziness GERD (gastroesophageal reflux disease) History of colonic polyps 06/21/2013 repeat 2019 Hyperlipidemia Insomnia 08/15/2014 Joint pain, hip Joint pain, knee Memory difficulties Muscle weakness Peripheral polyneuropathy 09/30/2020 Shortness of breath at rest Sleep apnea Snoring SOBOE (shortness of breath on exertion) Type 2 diabetes mellitus ([facility]) 03/19/2021 Past Surgical History: Procedure Laterality Date APPENDECTOMY BARIATRIC SURGERY 12/03/2021 Dr. Trevino CARDIAC CATHETERIZATION 12/17/2013 NORMAL CORONARY ARTERIES AND LVEF. COLONOSCOPY COLONOSCOPY 2020 CYSTOSCOPY 10/26/2020 CYSTOSCOPY 11/19/2020 EGD (HISTORICAL) 03/02/2023 NECK SURGERY Posterior cervical fusion ROTATOR CUFF REPAIR Bilateral UPPER GASTROINTESTINAL ENDOSCOPY 01/24/2021 Dr. Cabello Family History Problem Relation Name Age of Onset Osteoarthritis Mother Lung cancer Mother smoker Coronary artery disease Other Social History Socioeconomic History Marital status: Spouse name: Not on file Number of children: Not on file Years of education: Not on file Highest education level: Not on file Occupational History Not on file Tobacco Use Smoking status: Never Smokeless tobacco: Never Substance and Sexual Activity Alcohol use: Never Drug use: No Sexual activity: Not on file Other Topics Concern Not on file Social History Narrative Not on file Social Determinants of Health Financial Resource Strain: Not on file Food Insecurity: Not on file Transportation Needs: Not on file Physical Activity: Not on file Stress: Not on file Social Connections: Not on file Intimate Partner Violence: Not on file Housing Stability: Not on file Patient Active Problem List Diagnosis Date Noted Abdominal pain, epigastric 02/28/2023 Thrombocytopenia, unspecified (HCC) 01/14/2022 Abdominal pain 12/18/2021 Deficiency of multiple nutrient elements 12/05/2021 History of colonic polyps 01/29/2015 Morbid obesity ([facility]) 12/03/2021 DEMI on CPAP 03/19/2021 Type 2 diabetes mellitus ([facility]) 03/19/2021 CHF (congestive heart failure) ([facility]) 02/25/2021 Hyperlipidemia 02/25/2021 DEMI (obstructive sleep apnea) 12/13/2020 Mucopurulent chronic bronchitis ([facility]) 12/13/2020 Back pain 10/29/2020 Nephrotic syndrome 10/01/2020 COVID-19 10/01/2020 Benign essential HTN 10/01/2020 Multiple joint pain 10/01/2020 CAD (coronary artery disease) 10/01/2020 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 Sleep apnea 10/01/2020 Degenerative disc disease, thoracic 10/01/2020 Degenerative disc disease, lumbar 10/01/2020 Peripheral polyneuropathy 10/01/2020 Chronic back pain 10/01/2020 GERD (gastroesophageal reflux disease) 10/01/2020 Occlusion and stenosis of bilateral carotid arteries 09/30/2020 Urinary hesitancy 09/30/2020 Cervical spondylosis 09/30/2020 Nephrotic syndrome with membranous glomerulonephritis 09/30/2020 Disorder of bladder 09/30/2020 Hypoalbuminemia 09/30/2020 Cervicalgia 09/30/2020 History of snoring 09/18/2020 Shortness of breath 09/18/2020 Hx: nephrotic syndrome 08/26/2020 DJD (degenerative joint disease) of cervical spine 07/25/2020 Neurological symptoms 07/25/2020 Peripheral edema 07/25/2020 TIA (transient ischemic attack) 07/23/2020 Diarrhea 06/11/2020 Review of Systems Constitutional: Negative for fatigue, acute illness Eyes: Negative for vision restriction or changes Ears, nose, mouth, throat, and face: Negative for any hearing change, oral lesion, or other facial lesions Respiratory: Negative for shortness of breath or cough Cardiovascular: Negative for coronary artery disease and angina Gastrointestinal: Negative for change in bowel habits, hematochezia Genitourinary: Negative for hematuria or urinary retention Integument/breast: Positive for skin changes or masses Hematologic/lymphatic: negative for anemia or other lymphatic issues Musculoskeletal: Negative for muscle fatigue or muscle atrophy Neurological: Negative for focal neurologic deficits, negative for neuropathy Behavioral/Psych: Negative for behavioral psychiatric events Endocrine: Negative for any new endocrine changes Allergic/Immunologic: No immunologic diseases or new ALLERGIES Objective: There were no vitals filed for this visit. Body mass index is 36.86 kg/m . General: alert, no acute distress, cooperative Face: No lesions Eyes: Extraocular muscles intact. Vision grossly intact. Pupils symmetric. Conjunctiva within normal limits Lip/Mouth: Moist mucous membranes, no intraoral or vermilion lesions Neck: Supple, No thyromegaly Lymph Nodes: No lymphadenopathy Lungs: Non labored Heart: HR Regular, BP Stable Abdomen: Soft, NT, ND, No Hernia noted Beneath his umbilicus there is a clear thin apron of Haning skin that overhangs his genitals, the pubic tubercle, and the bilateral groins. There are chronic changes beneath this pannus. The superiorskin is healthy without issue. In the upper abdomen there is mild isolated fullness where there appears to be some extra superficial fat but concentration is beneath his umbilicus and a true Hanging isolated pannus. Grade 3 pannus Skin: Warm, dry Extremities: extremities normal, strength wnl, no cyanosis or edema Neurologic: Cranial nerves intact, No defect. Psychiatric: Oriented to person, place, and time. Pleasant mood Assessment: Patient is a 57 y.o. male with symptomatic abdominal pannus Plan: -Overall, the patient has very thin atrophic pannus that overhangs his genitals, groin, pubic tubercle with chronic skin changes and significant excess skin from weight loss. Patient would be a good candidate for panniculectomy given greater than 18 months after bariatric surgery, symptomatic skin,high-grade pannus, greater than 6 months stable weight, and failure of conservative measures to relieve symptoms that interfere with daily activity -Discussed patient risk and benefits including seroma, hematoma, infection, asymmetry, incomplete correction, need for additional surgery, poor scarring, poor wound healingbleeding, poor contour, loss of umbilicus, DVT, PE,and discussed with patient perioperative protocol -Follow-up postop -I spent over 45 minutes counseling, coordinating, reviewing, documenting, and discussing patient work up and risks and benefits of surgical intervention. Beto Gutierrez MD * Beto Gutierrez MD - 06/23/2023 10:00 AM EDT Patient additionally request possible evaluation for liposuction to fullness of the upper abdomen and lateral flank. Patient has upper abdominal fullness and lateral abdominal fullness could be admitted old to flank liposuction Discussed with patient risk and benefits of liposuction including incomplete correction, bruising, scarring, swelling, possible contour irregularities, pain, abdominal injury, other organ injury. Will get patient cosmetic quote documented in this [facility]03-11-2024 History of Present illness Narrative* Deborah Jasso APRN - JORDAN - 06/22/2023 1:00 PM EDT [facility] SURGICAL WEIGHT LOSS MANAGEMENT PROGRAM S/P LSG BY DR. CABELLO 11/2021 POST-OPERATIVE MEDICAL WEIGHT LOSS MANAGEMENT - 18 MONTH VISIT INITIAL PHYSICIAN EVALUATION Patient: Sophie Hicks Service Date: 06/22/23 Date of : 1965 Patient History/Assessment Summary: The patient is a pleasant 57 y.o. year old male, who stands Height: 5' 11.75 (182.2 cm) tall with a weight of Weight: 284 lb 9.6 oz (129 kg) pounds, resulting in a BMI of Body mass index is 38.87 kg/m . kg/m2. He has been overweight for many years, and has previously undergone weight loss surgery.He is now here for the 18 month post-weight loss surgery follow up visit. This is the patient's first medical evaluation for this service. Based upon BMI, he is currently experiencing obesity. This patient s excess weight is causing the following co-morbidities: DM HTN, def of multiple nutrients This patient is alone for the evaluation today. PLAN: ROS: I reviewed page 5 of the New Patient Assessment form with the patient, which is located in the [employer] tab History: Past Medical History: Diagnosis Date Abdominal pain Atrial fibrillation (HCC) Back pain Benign essential HTN 01/29/2015 Blood circulation, collateral CAD (coronary artery disease) mild - dx on cath - neg stress Cerebral artery occlusion with cerebral infarction (HCC) Chronic kidney disease COPD (chronic obstructive pulmonary disease) (HCC) COVID-19 05/03 COVID-19 vaccine series completed 09/25/2020 Moderna COVID-19 vaccine series completed 12/04/2020 BOOSTER CS (cervical spondylosis) 12/25/2004 CERVICAL SPINE DJD Difficulty sleeping Dizziness GERD (gastroesophageal reflux disease) History of colonic polyps 06/21/2013 repeat 2019 Hyperlipidemia Insomnia 08/15/2014 Joint pain, hip Joint pain, knee Memory difficulties Muscle weakness Peripheral polyneuropathy 09/30/2020 Shortness of breath at rest Sleep apnea Snoring SOBOE (shortness of breath on exertion) Type 2 diabetes mellitus ([facility]) 03/19/2021 Past Surgical History: Procedure Laterality Date APPENDECTOMY BARIATRIC SURGERY 12/03/2021 Dr. Trevino CARDIAC CATHETERIZATION 12/17/2013 NORMAL CORONARY ARTERIES AND LVEF. COLONOSCOPY COLONOSCOPY 2020 CYSTOSCOPY 10/26/2020 CYSTOSCOPY 11/19/2020 EGD (HISTORICAL) 03/02/2023 NECK SURGERY Posterior cervical fusion ROTATOR CUFF REPAIR Bilateral UPPER GASTROINTESTINAL ENDOSCOPY 01/24/2021 Dr. Cabello Family History Problem Relation Name Age of Onset Osteoarthritis Mother Lung cancer Mother smoker Coronary artery disease Other Social History Tobacco Use Smoking status: Never Smokeless tobacco: Never Substance Use Topics Alcohol use: Never He denies nausea, vomiting, dysphagia, or any GERD Sx. Currently is NOT taking a PPI Patient states diet and exercise is going fairly well Patient IS compliant with prescribed multivitamins and supplements. Labs were COMPLETED All labs were: NORMAL Physical Examination: BP 119/77 Pulse 80 Resp 16 Ht 5' 11.75 (1.822 m) Wt 284 lb 9.6 oz (129 kg) BMI 38.87 kg/m General: This patient is alert, appropriate and is in no apparent distress. Cardiac: Regular rate and rhythm without evidence of murmur Respiratory: Clear to auscultation bilaterally; No evidence of respiratory distress Abdomen: Soft, non-tender, non-distended without masses/ No evidence of abdominal hernia / Incisions consistent with previous surgeries. Head and Neck: Normocephalic and atraumatic/soft and supple; no lymphadenopathy or obvious bruits; no thyromegaly. Musculoskeletal: No cyanosis, clubbing or edema/ No calf tenderness/No restrictions of movement, isambulatory without assistance; DOES NOT present with back pain, WITHOUT limitation of movement Neurological: Intact x 4 extremities, no focal deficits notes. Skin: Warm and dry; No rashes or lesions noted. Psychological: Patient is awake, alert and oriented to person, place and time Patient's mood is APPROPRIATE Current Diet This patient s current diet is: well balanced Reviewed CURRENT DIET HISTORY with patient and provided a notebook for them to record their meals on a daily basis. Instructed patient on methods for documenting meals. Post-operative protein requirement is 65-75 gm/day protein. His diet contains adequate amounts of protein, adequate amounts of healthy fats, adequate amounts of green, leafy vegetables, and adequate lio of fruits. His comfort foods include: not currentl Current Activity This patient currently exercises 5 days a week Current Eating Behaviors This patients demonstrates the following behaviors as they relate to his eating: currently none He eats approximately 5-6 times per day. His last meal/snack was at 8pm Diet recall: ham on wheat toast Half a hamburger on a bun Vegetables [place] SF, water, protein shake Patient Active Problem List Diagnosis Nephrotic syndrome COVID-19 Diarrhea Benign essential HTN CHF (congestive heart failure) ([facility]) Hyperlipidemia DJD (degenerative joint disease) of cervical spine Multiple joint pain Neurological symptoms TIA (transient ischemic attack) Peripheral edema CAD (coronary artery disease) DEMI on CPAP Diffuse membranous glomerulonephritis Hx: nephrotic syndrome Type 2 diabetes mellitus ([facility]) Morbid obesity ([facility]) History of colonic polyps History of snoring Shortness of breath Occlusion and stenosis of bilateral carotid arteries Sleep apnea Urinary hesitancy Degenerative disc disease, thoracic Cervical spondylosis Back pain Degenerative disc disease, lumbar Nephrotic syndrome with membranous glomerulonephritis Thrombocytopenia, unspecified ([facility]) Disorder of bladder Hypoalbuminemia Peripheral polyneuropathy Chronic back pain GERD (gastroesophageal reflux disease) DEMI (obstructive sleep apnea) Mucopurulent chronic bronchitis ([facility]) Cervicalgia Deficiency of multiple nutrient elements Abdominal pain Abdominal pain, epigastric Visit Diagnoses: 1. Hyperlipidemia associated with type 2 diabetes mellitus (HCC) ([facility]) 2. Essential hypertension 3. Deficiency of multiple nutrient elements 4. Class 2 severe obesity due to excess calories with serious comorbidity and body mass index (BMI)of 38.0 to 38.9 in adult ([facility]) 5. Vitamin D deficiency Plan: Pt with long standing history of type 2 DM, insulin dependent, HBA1C 6.5% before surgery. With pt'sdiabetic complications, CKD, polyneuropathy, will go ahead and initiate prior auth for GLP-1. Will see if he will benefit with goal of optimizing glucose and insulin levels. Reviewed with pt risk of medullary thyroid carcinoma, no personal or family history. No history of pancreatitis, has gallbladder. Risks vs benefits, potential GI s/e profile including, but not limited to, N/V/D, abdominal pain, gallbladder issues, and dehydration. He is on Lipitor 80 mg daily as well as ASA d/t prior stroke. Stable, continue current med regimen continue supplements, stable, monitor labs per protocol Lengthy discussion re: eating for your metabolism by being mindful of timing of eating, high protein diet, pairing protein with complex carb at meals and snacks. Resources provided, questions addressed and answered. Pt advised to increase protein intake. Advised patient that continued physician-supervised weight loss management is recommended at this time to work on weight loss. Physician Diet Recommendations given to patient In addition, he has been advised to: Schedule FU visit in 6 weeks Consultations: Other Consultations:{ [ ] Psychological evaluation [ ] Dietitian appointment Goals: 3 month weight goal: 6 month weight goal: 12 month weight goal: Current Meds Patient's Medications New Prescriptions No medications on file Previous Medications ADVAIR DISKUS 250-50 MCG/ACT AEROSOL POWDER INHALE 1 PUFF INTO THE LUNGS TWICE DAILY ALPRAZOLAM (XANAX) 1 MG TABLET Take 1 mg by mouth every 24 hours as needed. ASPIRIN 81 MG CHEWABLE TABLET Chew 81 mg daily. ASPIRIN 81 MG EC TABLET 81 mg daily. ATORVASTATIN (LIPITOR) 80 MG TABLET Take 80 mg by mouth daily. BACITRACIN 500 UNIT/GM OINTMENT APPLY TOPICALLY TO AFFECTED AREAS twice a day BACLOFEN (LIORESAL) 10 MG TABLET Take 10 mg by mouth 2 times daily. BUMETANIDE (BUMEX) 1 MG TABLET Take 1 mg by mouth in the morning and 1 mg before bedtime. BUPROPION XL (WELLBUTRIN XL) 150 MG 24 HR TABLET Take 150 mg by mouth daily. BUSPIRONE (BUSPAR) 10 MG TABLET Take 10 mg by mouth 2 times daily. CALCIUM CITRATE 250 MG TABLET Take 2 tablets (500 mg) by mouth in the morning and 2 tablets (500 mg) at noon and 2 tablets (500 mg) before bedtime. Take 2 tablets by mouth three times daily.. CONTINUOUS BLOOD GLUC SENSOR (FREESTYLE ALEXANDRA 2 SENSOR) [facility] USE DIRECTED; CHANGE SENSOR EVERY 14 DAYS DICLOFENAC SODIUM (VOLTAREN) 1 % GEL apply 2 grams to affected area four times a day DICYCLOMINE (BENTYL) 10 MG CAPSULE Take 10 mg by mouth in the morning and 10 mg at noon and 10 mg in the evening and 10 mg before bedtime. EMOLLIENT (AQUAPHOR ADVANCED THERAPY) OINTMENT FLUTICASONE (FLONASE) 50 MCG/ACT NASAL SPRAY Every 24 hours. FUROSEMIDE (LASIX) 40 MG TABLET Take 40 mg by mouth daily. GABAPENTIN (NEURONTIN) 300 MG CAPSULE Take 600 mg by mouth 3 times daily. HYDROXYZINE PAMOATE (VISTARIL) 25 MG CAPSULE Take 25 mg by mouth in the morning and 25 mg before bedtime. IBUPROFEN 600 MG TABLET take 1 tablet by mouth three times a day if needed with food or milk for 10days LEVOTHYROXINE (SYNTHROID, LEVOXYL) 75 MCG TABLET METHOCARBAMOL (ROBAXIN) 500 MG TABLET Take 1.5 tablets (750 mg) by mouth every 8 hours as needed for muscle spasms for up to 5 days. METOLAZONE (ZAROXOLYN) 2.5 MG TABLET MULTIPLE VITAMINS-MINERALS (MULTIVITAMIN ADULTS 50+ PO) Take by mouth. MUPIROCIN (BACTROBAN) 2 % OINTMENT ONDANSETRON ODT (ZOFRAN-ODT) 4 MG DISINTEGRATING TABLET OXYCODONE-ACETAMINOPHEN (PERCOCET) 5-325 MG TABLET Take 1 tablet by mouth 2 times daily. PANTOPRAZOLE (PROTONIX) 40 MG EC TABLET Take 1 tablet (40 mg) by mouth daily. PAROXETINE (PAXIL) 20 MG TABLET Take 20 mg by mouth every morning. POTASSIUM CHLORIDE CR (KLOR-CON M20) 20 MEQ ER TABLET as needed. PROMETHAZINE (PHENERGAN) 12.5 MG TABLET Take 12.5 mg by mouth. SENNA-DOCUSATE SODIUM (SENOKOT-S) 8.6-50 MG TABLET 1-2 tab(s) SERTRALINE (ZOLOFT) 50 MG TABLET Take 50 mg by mouth daily. SILDENAFIL (REVATIO) 20 MG TABLET take 1-5 tablets BY MOUTH NEEDED SILDENAFIL (VIAGRA) 100 MG TABLET Every 24 hours. TAMSULOSIN (FLOMAX) 0.4 MG 24 HR CAPSULE Take 0.4 mg by mouth daily. TORSEMIDE (DEMADEX) 20 MG TABLET Take 20 mg by mouth daily. TRAMADOL ER (ULTRAM-ER) 300 MG 24 HR TABLET Take 300 mg by mouth 3 times daily. TRIAMCINOLONE (KENALOG) 0.1 % CREAM APPLY TO THE AFFECTED AREAS OF LOWER LEGS TWICE DAILY FOR 2 WEEKS... (REFER TO PRESCRIPTION NOTES). VENTOLIN HFA 108 (90 BASE) MCG/ACT INHALER Inhale 2 puffs every 6 hours as needed. Modified Medications No medications on file Discontinued Medications B-12 MICROLOZENGE 500 MCG SUBLINGUAL TABLET dissolve 1 tablet under the tongue once daily CHOLESTYRAMINE (QUESTRAN) 4 G PACKET Take 1 packet (4 g) by mouth 2 times daily. ERGOCALCIFEROL (VITAMIN D2) 1.25 MG (20063 UT) CAPSULE take 1 capsule by mouth every week for 8 doses FAMOTIDINE (PEPCID) 20 MG TABLET every 12 hours. NYSTATIN (MYCOSTATIN) 228013 UNIT/GM POWDER Apply 1 Application topically 2 times daily. Apply topically to affected area two times daily. ZINC GLUCONATE 50 MG TABLET Take 50 mg by mouth daily. Orders Placed This Encounter Procedures Zinc These orders are set for an approximate date - they can be drawn up to 3 months prior to the Expected Date on this Req. Please send results to: WILIAM FERNANDEZ MD - [id number] [facility] [address] - [phone] And if not done at a [facility] Facility, please send to: [facility] - [address] [place] [address], [address], [address] Patient Name: Sophie Hicks - 1965 Order Created by : Kristine Brown MA Standing Status: Future Number of Occurrences: 1 Standing Expiration Date: 06/21/2024 Folate These orders are set for an approximate date - they can be drawn up to 3 months prior to the Expected Date on this Req. Please send results to: WILIAM FERNANDEZ MD - [address] [facility] [address] - [phone] And if not done at a [facility] Facility, please send to: [address], [address] Patient Name: Sophie Hicks - 1965 Order Created by : Kristine Brown MA Standing Status: Future Number of Occurrences: 1 Standing Expiration Date: 06/21/2024 Iron These orders are set for an approximate date - they can be drawn up to 3 months prior to the Expected Date on this Req. Please send results to: WILIAM FERNANDEZ MD - [id number] [facility] [address] - [phone] And if not done at a [facility] Facility, please send to: [address], [address] Patient Name: Sophie Hicks - 1965 Order Created by : Kristine Brown MA Standing Status: Future Number of Occurrences: 1 Standing Expiration Date: 06/21/2024 Ferritin These orders are set for an approximate date - they can be drawn up to 3 months prior to the Expected Date on this Req. Please send results to: WILIAM FERNANDEZ MD - [address] [facility] [address] - [phone] And if not done at a [facility] Facility, please send to: [address], [address] Patient Name: Sophie Hicks - 1965 Order Created by : Kristine Brown MA Standing Status: Future Number of Occurrences: 1 Standing Expiration Date: 06/21/2024 Magnesium These orders are set for an approximate date - they can be drawn up to 3 months prior to the Expected Date on this Req. Please send results to: WILIAM FERNANDEZ MD - [address] [facility] [address] - [phone] And if not done at a [facility] Facility, please send to: [address] [place], [address] Patient Name: Sophie Hicks - 1965 Order Created by : Kristine Brown MA Standing Status: Future Number of Occurrences: 1 Standing Expiration Date: 06/21/2024 Vitamin D Deficiency Screening (Vit D 25) These orders are set for an approximate date - they can be drawn up to 3 months prior to the Expected Date on this Req. Please send results to: WILIAM FERNANDEZ MD - [address] [facility] [address] - [phone] And if not done at a [facility] Facility, please send to: [address], [address] Patient Name: Sophie Hicks - 1965 Order Created by : Kristine Brown MA Standing Status: Future Number of Occurrences: 1 Standing Expiration Date: 06/21/2024 Vitamin B12 These orders are set for an approximate date - they can be drawn up to 3 months prior to the Expected Date on this Req. Please send results to: WILIAM FERNANDEZ MD - [address] [facility] [address] - [phone] And if not done at a [facility] Facility, please send to: [address], [address] Patient Name: Sophie Hicks - 1965 Order Created by : Kristine Brown MA Standing Status: Future Number of Occurrences: 1 Standing Expiration Date: 06/21/2024 Vitamin B1, whole blood These orders are set for an approximate date - they can be drawn up to 3 months prior to the Expected Date on this Req. Please send results to: WILIAM FERNANDEZ MD - [address] [facility] [address] - [phone] And if not done at a [facility] Facility, please send to: [address], [address] Patient Name: Sophie Hicks - 1965 Order Created by : Kristine Brown MA Standing Status: Future Number of Occurrences: 1 Standing Expiration Date: 06/21/2024 Lipid panel These orders are set for an approximate date - they can be drawn up to 3 months prior to the Expected Date on this Req. Please send results to: WILIAM FERNANDEZ MD - [address] [facility] [address] - [phone] And if not done at a [facility] Facility, please send to: [address], [address] Patient Name: Sophie Lemus 1965 Order Created by : Kristine Brown MA Standing Status: Future Number of Occurrences: 1 Standing Expiration Date: 06/21/2024 Comprehensive metabolic panel These orders are set for an approximate date - they can be drawn up to 3 months prior to the Expected Date on this Req. Please send results to: WILIAM FERNANDEZ MD - [address] [facility] [address] - [phone] And if not done at a [facility] Facility, please send to: [address], [address] Patient Name: Sophie Hicks - 1965 Order Created by : Krsitine Brown MA Standing Status: Future Number of Occurrences: 1 Standing Expiration Date: 06/21/2024 CBC These orders are set for an approximate date - they can be drawn up to 3 months prior to the Expected Date on this Req. Please send results to: WILIAM FERNANDEZ MD - [address] [facility] [address] - [phone] And if not done at a [facility] Facility, please send to: [address], [address] Patient Name: Sophie Lemus 1965 Order Created by : Kristine Brown MA Standing Status: Future Number of Occurrences: 1 Standing Expiration Date: 06/21/2024 Medications ordered during this encounter: Outpatient Encounter Medications as of 06/22/2023 Medication Sig Dispense Refill Advair Diskus 250-50 MCG/ACT aerosol powder INHALE 1 PUFF INTO THE LUNGS TWICE DAILY 1 each 10 ALPRAZolam (Xanax) 1 MG tablet Take 1 mg by mouth every 24 hours as needed. aspirin 81 MG chewable tablet Chew 81 mg daily. aspirin 81 MG EC tablet 81 mg daily. atorvastatin (Lipitor) 80 MG tablet Take 80 mg by mouth daily. bacitracin 500 UNIT/GM ointment APPLY TOPICALLY TO AFFECTED AREAS twice a day baclofen (Lioresal) 10 MG tablet Take 10 mg by mouth 2 times daily. bumetanide (Bumex) 1 MG tablet Take 1 mg by mouth in the morning and 1 mg before bedtime. buPROPion XL (Wellbutrin XL) 150 MG 24 hr tablet Take 150 mg by mouth daily. busPIRone (Buspar) 10 MG tablet Take 10 mg by mouth 2 times daily. calcium citrate 250 MG tablet Take 2 tablets (500 mg) by mouth in the morning and 2 tablets (500 mg) at noon and 2 tablets (500 mg) before bedtime. Take 2 tablets by mouth three times daily.. 180 tablet 3 Continuous Blood Gluc Sensor (FreeStyle Alexandra 2 Sensor) [facility] [place]ED; CHANGE SENSOR EVERY 14 DAYS Diclofenac Sodium (Voltaren) 1 % gel apply 2 grams to affected area four times a day dicyclomine (Bentyl) 10 MG capsule Take 10 mg by mouth in the morning and 10 mg at noon and 10 mg in the evening and 10 mg before bedtime. Emollient (Aquaphor Advanced Therapy) ointment fluticasone (Flonase) 50 MCG/ACT nasal spray Every 24 hours. furosemide (Lasix) 40 MG tablet Take 40 mg by mouth daily. gabapentin (Neurontin) 300 MG capsule Take 600 mg by mouth 3 times daily. hydrOXYzine pamoate (Vistaril) 25 MG capsule Take 25 mg by mouth in the morning and 25 mg before bedtime. levothyroxine (Synthroid, Levoxyl) 75 MCG tablet Multiple Vitamins-Minerals (MULTIVITAMIN ADULTS 50+ PO) Take by mouth. mupirocin (Bactroban) 2 % ointment ondansetron ODT (Zofran-ODT) 4 MG disintegrating tablet oxyCODONE-acetaminophen (Percocet) 5-325 MG tablet Take 1 tablet by mouth 2 times daily. pantoprazole (ProtoNix) 40 MG EC tablet Take 1 tablet (40 mg) by mouth daily. 120 tablet 0 PARoxetine (Paxil) 20 MG tablet Take 20 mg by mouth every morning. potassium chloride CR (Klor-Con M20) 20 MEQ ER tablet as needed. promethazine (Phenergan) 12.5 MG tablet Take 12.5 mg by mouth. senna-docusate sodium (Senokot-S) 8.6-50 MG tablet 1-2 tab(s) sertraline (Zoloft) 50 MG tablet Take 50 mg by mouth daily. sildenafil (Revatio) 20 MG tablet take 1-5 tablets BY MOUTH NEEDED sildenafil (Viagra) 100 MG tablet Every 24 hours. tamsulosin (Flomax) 0.4 MG 24 hr capsule Take 0.4 mg by mouth daily. torsemide (Demadex) 20 MG tablet Take 20 mg by mouth daily. traMADol ER (Ultram-ER) 300 MG 24 hr tablet Take 300 mg by mouth 3 times daily. triamcinolone (Kenalog) 0.1 % cream APPLY TO THE AFFECTED AREAS OF LOWER LEGS TWICE DAILY FOR 2 WEEKS... (REFER TO PRESCRIPTION NOTES). Ventolin HFA 108 (90 Base) MCG/ACT inhaler Inhale 2 puffs every 6 hours as needed. ibuprofen 600 MG tablet take 1 tablet by mouth three times a day if needed with food or milk for 10days methocarbamol (Robaxin) 500 MG tablet Take 1.5 tablets (750 mg) by mouth every 8 hours as needed for muscle spasms for up to 5 days. 20 tablet 0 metOLazone (Zaroxolyn) 2.5 MG tablet [DISCONTINUED] B-12 Microlozenge 500 MCG sublingual tablet dissolve 1 tablet under the tongue once daily [DISCONTINUED] cholestyramine (Questran) 4 g packet Take 1 packet (4 g) by mouth 2 times daily. 60 packet 11 [DISCONTINUED] ergocalciferol (Vitamin D2) 1.25 MG (33177 UT) capsule take 1 capsule by mouth everyweek for 8 doses [DISCONTINUED] famotidine (Pepcid) 20 MG tablet every 12 hours. [DISCONTINUED] nystatin (Mycostatin) 407886 UNIT/GM powder Apply 1 Application topically 2 times daily. Apply topically to affected area two times daily. (Patient not taking: Reported on 06/22/2023) 60 g 2 [DISCONTINUED] zinc gluconate 50 MG tablet Take 50 mg by mouth daily. No facility-administered encounter medications on file as of 06/22/2023. * Kristine Brown MA - 06/22/2023 1:00 PM EDT [facility] ROOMING NOTE POST WEIGHT LOSS SURGERY FOLLOW UP Patient: Sophie Cobb Kurt Service Date: 06/22/2023 Patient is 18 month(s) s/p Sleeve Gastrectomy Today's Metrics: Post-Surgical Weight Loss Date: 06/22/23 Height: 5' 11.75 (182.2 cm) Weight: 284 lb 9.6 oz (129 kg) BMI: 38.86 Weight Change: -18.2 lbs Total Weight Change: -69.6 lbs % EBWL: 39% Comments: 16M Post-op Weight Metrics: Post-Surgical Weight Loss Date: 06/22/23 Height: 5' 11.75 (182.2 cm) Weight: 284 lb 9.6 oz (129 kg) BMI: 38.86 Weight Change: -18.2 lbs Total Weight Change: -69.6 lbs % EBWL: 39% Comments: 16M (From Surgical Weight Loss Tracker) Patient has the following questions: None Reported Pain: Patient rates pain on scale 0-10 as: 0 Exercise Compliance: Exercising: yes If yes: Type: TREADMILL, ELIPTICAL Times per week: Min per session: Falls Risk Assessment Patient does take medications which affect BP or mental status Patient does not t have newly prescribed or changed dosage of medications within past 30 days whichaffect BP or mental status Patient has not fallen in the past 2 months Patient does t demonstrate unsteady gait Patient uses the following ambulatory assistive devices: NONE Patient states the presence of the following traits which increases risk of fall: NONE Patient is not on home O2 Pre-op Weight Metrics: Labs Completed: no - If NO, patient instructed to get labs drawn today or NATASHA If YES: Labs completed at [facility]? N/A If yes see Labs Tab [facility] N/A If yes see Encounters Tab - Orders only - Historical Provider - Date: Completed by: Kristine Brown MA documented in this [facility]01-23-2024 Telephone encounter Note* Telephone Encounter - Ivelisse Merino - 05/05/2023 10:05 AM EST Spoke to pt and r/s appt to 08/03/23 due to pt requesting [facility] office. [id number] Miscellaneous Notes* Telephone Encounter - Ivelisse Merino - 05/05/2023 10:05 AM EST Spoke to pt and r/s appt to 08/03/23 due to pt requesting [facility] office. * Telephone Encounter - Afia Simental - 05/05/2023 9:20 AM EST Name of Caller: Sophie Contact Reason for Appointment: Pt states he has another Dr's appt schedule for the same date and time on 05/25. Pt states he needs to reschedule. Please advise. Office Name: Urology documented in this [facility]01-23-2024 Telephone encounter Note* Telephone Encounter - Afia Simental - 05/05/2023 9:20 AM EST Name of Caller: Sophie Contact Reason for Appointment: Pt states he has another Dr's appt schedule for the same date and time on 05/25. Pt states he needs to reschedule. Please advise. Office [facility]rology [id number] Telephone encounter Note* Telephone Encounter - Arlin Paula - 05/04/2023 11:13 AM EST Odette referral. Pt is established with our office, has seen both Dr. Whittaker and C[facility]. Pt prefers [facility] location. Scheduled first available 05/25/23 with COD[facility]. Referral summary and all documents sentare scanned under media. Referral made and attached to appt. [id number] Miscellaneous Notes* Telephone Encounter - Arlin Mandujanoe - 05/04/2023 11:13 AM EST Odette referral. Pt is established with our office, has seen both Dr. Whittaker and [facility]. Pt prefers [facility] location. Scheduled first available 05/25/23 with [facility]. Referral summary and all documents sentare scanned under media. Referral made and attached to appt. documented in this [facility]12-29-2023 Emergency department Note* Melvi Cavanaugh RN - 04/10/2023 4:34 PM EST Discharge instructions reviewed with patient. Medications, treatments, and follow up appointments discussed. IV removed. Medications completed. VS stable. All questions answered. Patient verbalized understanding. Melvi Cavanaugh RN 04/10/23 5644 [id number] Emergency department Note* Melvi Cavanaugh RN - 04/10/2023 4:34 PM EST Discharge instructions reviewed with patient. Medications, treatments, and follow up appointments discussed. IV removed. Medications completed. VS stable. All questions answered. Patient verbalized understanding. Melvi Cavanaugh RN 04/10/23 1634 * Melvi Cavanaugh RN - 04/10/2023 11:50 AM EST Pt given solution to drink prior to being taken to CT. Shortly thereafter pt vomited. Hygiene care completed. Melvi Cavanaugh RN 04/10/23 1232 documented in this [facility]12-29-2023 Hospital Discharge instructions* Discharge Instructions* Melissa Hall PA-C - 04/10/2023 3:58 PM EST Please continue to take your medications as prescribed, and follow-up with your PCP, and with gastroenterology for continued evaluation and management. As we discussed, your evaluation here in the EDwas very reassuring, but he would benefit from additional evaluation with possible colonoscopy on an outpatient basis. Please return to ED if have any new or worsening symptoms including worsening pain, bleeding, dizziness, lightheadedness, shortness of breath, or if you have any new symptoms or concerns. documented in this [facility]12-29-2023 Emergency department Note* Melvi Cavanaugh RN - 04/10/2023 11:50 AM EST Pt given solution to drink prior to being taken to CT. Shortly thereafter pt vomited. Hygiene care completed. Melvi Cavanaugh RN 04/10/23 1232 [id number] Note* Addendum Note - Harsha Bell NP - 04/03/2023 11:14 AM ESTAddended by: HARSHA BELL on: 04/03/2023 11:14 AM Modules accepted: Orders [id number] Miscellaneous Notes* Addendum Note - Harsha Cavanaugh NP - 04/03/2023 11:14 AM ESTAddended by: HARSHA BELL on: 04/03/2023 11:14 AM Modules accepted: Orders * Telephone Encounter - Harsha Bell NP - 04/03/2023 11:11 AM EST Patient has not responded to my VM that was left on 03/31/2023. Will send a refill in for Protonix to continue for Bile reflux that was noted on EGD. Will my chart patient with this information. * Telephone Encounter - Harsha Bell NP - 03/31/2023 11:04 AM EST Called [phone] left message for patient to return my call. * Telephone Encounter - Libia Nunez LPN - 03/30/2023 2:37 PM EST Received call from patient C/O continued abdominal pain, states he had a EGD done last week. Statesvery frustrated as he feels he is not getting any vall back. * Telephone Encounter - Lis Torres - 03/23/2023 3:05 PM EST LM for patient to return call to schedule EGD with Dr. Cabello. Dp * Telephone Encounter - Harsha Bell NP - 03/23/2023 2:03 PM EST This patient had been prescribed PPI and Carafate with an EGD ordered. Patient has yet to complete the EGD. I will route this to ALS to get patient scheduled again. * Telephone Encounter - Libia Nunez LPN - 03/23/2023 1:33 PM EST LS 12/03/2021- Suhail Patient has called with continued pain in abdomen pain is intermittent aggravated by eating. Deniesfever. Some N/V. Was in [facility] last week US and Ugi was done. * Telephone Encounter - Harsha Bell NP - 02/23/2023 1:51 PM EST Note, thank you. EGD was ordered but patient hasn't scheduled. Will follow up after EGD. Thank you. * Telephone Encounter - Libia Nunez LPN - 02/23/2023 12:43 PM EST Received call from patient stating was seen @ [facility] 02/21/2023. No new medication prescribed. No testing completed, instructed to follow up with MP. C/O continues to have abdominal pain 11/20. Notable to eat / drink with out pain. Gave # for ALS scheduling to set up EGD. * Telephone Encounter - Harsha Bell NP - 02/17/2023 2:21 PM EST Noted, thanks * Telephone Encounter - Libia Nunez LPN - 02/17/2023 1:02 PM EST Received call from patient stating his pain is becoming worse. 12/21, sharp stabbing pain becoming more constant. Denies fever. Last BM 02/17/2023 diarrhea, normal brown color. Continues to take Colace, Protonix and Sucralfate. ALS attempted to schedule EGD but line was busy and has not attempted again. * Telephone Encounter - Harsha Bell NP - 02/17/2023 10:01 AM EST Called patient's home phone twice but it hung up each time and I was unable to leave a message. ER placed patient on Carafate and patient is currently taking Protonix. Will place order in for an EGD. * Telephone Encounter - Libia Nunez LPN - 02/16/2023 1:44 PM EST LSG 12/03/2021- Suhail Last ov Next ov Patient called with c/o ABDOMINAL PAIN: Surgery Date-Surgeon MP 12/03/2021 Last OV-11/30/2022 Next OV if available 06/22/2023 Date of onset: 5 days ago Location: [ ] RUQ, [ ] RLQ, [ ] LUQ, [ ] LLQ, [ x ] Epigastric. Intensity on scale from 0-10 : 8 [if greater than 6, verbal notification to provider] Description of Pain: [ xx [ sharp, [ ] dull, [ ] stabbing, [ xx ] cramping, [ ] aching. [ ] constant Date of last bowel movement: 02/16/2023 Describe bowel movement: [ ] normal, [ x ] diarrhea or [ ] Constipation Color of bowel movement: [ xx ] brown [ ] black tarry [ ] maroon [ ] with bright red blood Fever?: [ ] Yes [ x ] No Able to drink liquids without vomiting :[ ] Yes [ xx ] No sometimes vomits Able to eat solid food without vomiting: [ ] Yes [ xx ] No sometime vomit Pain become worse with eating or drinking? yes Gallbladder still in place? [ xx ] Yes or [ ] No. Still taking PPI? [ ] Yes or [ xx ] No. Was prescribed Protonix at ED 02/15/2023 If yes, frequency: [ ] once or [ ] twice daily. Xx TID Symptoms of esophageal reflux?: no Do you smoke, drink alcohol, caffeine or use NSAIDS? no Surgery with in last month: No If yes: Incision: Positive red answers verbally delivered to ESCROW MANAGER or designee Message routed to CODI or designee General triage directions: If pt calling for the second time with C/O abd pain, pt given apt and DW CODI if need urgent slot that is not available. Notify FD/PAR apt for chart prep Pain is common in left side for Shahnaz and can be normal on the right side for Sleeve Pain is normal in the absence of any fever, n/v/d/c, and inadequate fluid intake Usually described as burning, searing, stabbing, ripping, tugging or pinching Pain made worse with movement, usually laying to sitting, sitting to standing, etc Pain is a sudden onset, lasting about a week and will quickly resolve Take pain meds as ordered (no additional narcotics will be given without appt). If out of narcotic given in the hospital, will need to take Tylenol. Apply ice/heat to site as comfortable Continue to ambulate as this will continue to help reduce the risk of DVT and pneumonia. Call the office with worsening symptoms or with any further questions or concerns documented in this encounterSParkview [id number] Telephone encounter Note* Telephone Encounter - Harsha Bell NP - 04/03/2023 11:11 AM EST Patient has not responded to my VM that was left on 03/31/2023. Will send a refill in for Protonix to continue for Bile reflux that was noted on EGD. Will my chart patient with this information. [facility] [id number] Telephone encounter Note* Telephone Encounter - Harsha Bell NP - 03/31/2023 11:04 AM EST Called [phone] left message for patient to return my call. [facility] [id number] Miscellaneous Notes* Telephone Encounter - Harsha Bell NP - 03/31/2023 11:04 AM EST Called [phone] left message for patient to return my call. * Telephone Encounter - Libia Nunez LPN - 03/30/2023 2:37 PM EST Received call from patient C/O continued abdominal pain, states he had a EGD done last week. Statesvery frustrated as he feels he is not getting any vall back. * Telephone Encounter - Lis Torres - 03/23/2023 3:05 PM EST LM for patient to return call to schedule EGD with Dr. Cabello. Dp * Telephone Encounter - Harsha Bell NP - 03/23/2023 2:03 PM EST This patient had been prescribed PPI and Carafate with an EGD ordered. Patient has yet to complete the EGD. I will route this to ALS to get patient scheduled again. * Telephone Encounter - Libia Nunez LPN - 03/23/2023 1:33 PM EST LSG 12/03/2021- Suhail Patient has called with continued pain in abdomen pain is intermittent aggravated by eating. Deniesfever. Some N/V. Was in [facility] last week US and Ugi was done. * Telephone Encounter - Harsha Bell NP - 02/23/2023 1:51 PM EST Note, thank you. EGD was ordered but patient hasn't scheduled. Will follow up after EGD. Thank you. * Telephone Encounter - Libia Nunez LPN - 02/23/2023 12:43 PM EST Received call from patient stating was seen @ [facility] 02/21/2023. No new medication prescribed. No testing completed, instructed to follow up with MP. C/O continues to have abdominal pain 11/20. Notable to eat / drink with out pain. Gave # for ALS scheduling to set up EGD. * Telephone Encounter - Harsha Bell NP - 02/17/2023 2:21 PM EST Noted, thanks * Telephone Encounter - Libia Nunez LPN - 02/17/2023 1:02 PM EST Received call from patient stating his pain is becoming worse. 12/21, sharp stabbing pain becoming more constant. Denies fever. Last BM 02/17/2023 diarrhea, normal brown color. Continues to take Colace, Protonix and Sucralfate. ALS attempted to schedule EGD but line was busy and has not attempted again. * Telephone Encounter - Harsha Bell NP - 02/17/2023 10:01 AM EST Called patient's home phone twice but it hung up each time and I was unable to leave a message. ER placed patient on Carafate and patient is currently taking Protonix. Will place order in for an EGD. * Telephone Encounter - Libia Nunez LPN - 02/16/2023 1:44 PM EST LSG 12/03/2021- Pozsgay Last ov Next ov Patient called with c/o ABDOMINAL PAIN: Surgery Date-Surgeon MP 12/03/2021 Last OV-11/30/2022 Next OV if available 06/22/2023 Date of onset: 5 days ago Location: [ ] RUQ, [ ] RLQ, [ ] LUQ, [ ] LLQ, [ x ] Epigastric. Intensity on scale from 0-10 : 8 [if greater than 6, verbal notification to provider] Description of Pain: [ xx [ sharp, [ ] dull, [ ] stabbing, [ xx ] cramping, [ ] aching. [ ] constant Date of last bowel movement: 02/16/2023 Describe bowel movement: [ ] normal, [ x ] diarrhea or [ ] Constipation Color of bowel movement: [ xx ] brown [ ] black tarry [ ] maroon [ ] with bright red blood Fever?: [ ] Yes [ x ] No Able to drink liquids without vomiting :[ ] Yes [ xx ] No sometimes vomits Able to eat solid food without vomiting: [ ] Yes [ xx ] No sometime vomit Pain become worse with eating or drinking? yes Gallbladder still in place? [ xx ] Yes or [ ] No. Still taking PPI? [ ] Yes or [ xx ] No. Was prescribed Protonix at ED 02/15/2023 If yes, frequency: [ ] once or [ ] twice daily. Xx TID Symptoms of esophageal reflux?: no Do you smoke, drink alcohol, caffeine or use NSAIDS? no Surgery with in last month: No If yes: Incision: Positive red answers verbally delivered to ESCROW MANAGER or designee Message routed to CODI or designee General triage directions: If pt calling for the second time with C/O abd pain, pt given apt and DW CODI if need urgent slot that is not available. Notify FD/PAR apt for chart prep Pain is common in left side for Shahnaz and can be normal on the right side for Sleeve Pain is normal in the absence of any fever, n/v/d/c, and inadequate fluid intake Usually described as burning, searing, stabbing, ripping, tugging or pinching Pain made worse with movement, usually laying to sitting, sitting to standing, etc Pain is a sudden onset, lasting about a week and will quickly resolve Take pain meds as ordered (no additional narcotics will be given without appt). If out of narcotic given in the hospital, will need to take Tylenol. Apply ice/heat to site as comfortable Continue to ambulate as this will continue to help reduce the risk of DVT and pneumonia. Call the office with worsening symptoms or with any further questions or concerns documented in this encounterSParkview [id number] Telephone encounter Note* Telephone Encounter - Libia Nunez LPN - 03/30/2023 2:37 PM EST Received call from patient C/O continued abdominal pain, states he had a EGD done last week. Statesvery frustrated as he feels he is not getting any vall back. [facility] [id number] Telephone encounter Note* Telephone Encounter - Lis Torres - 03/23/2023 3:05 PM EST LM for patient to return call to schedule EGD with Dr. Cabello. Dp [id number] Miscellaneous Notes* Telephone Encounter - Lis Torres - 03/23/2023 3:05 PM EST LM for patient to return call to schedule EGD with Dr. Cabello. Dp * Telephone Encounter - Harsha Bell NP - 03/23/2023 2:03 PM EST This patient had been prescribed PPI and Carafate with an EGD ordered. Patient has yet to complete the EGD. I will route this to ALS to get patient scheduled again. * Telephone Encounter - Libia Nunez LPN - 03/23/2023 1:33 PM EST LS 12/03/2021- Suhail Patient has called with continued pain in abdomen pain is intermittent aggravated by eating. Deniesfever. Some N/V. Was in [facility] last week US and Ugi was done. * Telephone Encounter - Harsha Bell NP - 02/23/2023 1:51 PM EST Note, thank you. EGD was ordered but patient hasn't scheduled. Will follow up after EGD. Thank you. * Telephone Encounter - Libia Nunez LPN - 02/23/2023 12:43 PM EST Received call from patient stating was seen @ [facility] 02/21/2023. No new medication prescribed. No testing completed, instructed to follow up with MP. C/O continues to have abdominal pain 11/20. Notable to eat / drink with out pain. Gave # for ALS scheduling to set up EGD. * Telephone Encounter - Harsha Bell NP - 02/17/2023 2:21 PM EST Noted, thanks * Telephone Encounter - Libia Nunez LPN - 02/17/2023 1:02 PM EST Received call from patient stating his pain is becoming worse. 9/10, sharp stabbing pain becoming more constant. Denies fever. Last BM 02/17/2023 diarrhea, normal brown color. Continues to take Colace, Protonix and Sucralfate. ALS attempted to schedule EGD but line was busy and has not attempted again. * Telephone Encounter - Harsha Bell NP - 02/17/2023 10:01 AM EST Called patient's home phone twice but it hung up each time and I was unable to leave a message. ER placed patient on Carafate and patient is currently taking Protonix. Will place order in for an EGD. * Telephone Encounter - Libia Nunez LPN - 02/16/2023 1:44 PM EST LSG 12/03/2021- Suhail Last ov Next ov Patient called with c/o ABDOMINAL PAIN: Surgery Date-Surgeon MP 12/03/2021 Last OV-11/30/2022 Next OV if available 06/22/2023 Date of onset: 5 days ago Location: [ ] RUQ, [ ] RLQ, [ ] LUQ, [ ] LLQ, [ x ] Epigastric. Intensity on scale from 0-10 : 8 [if greater than 6, verbal notification to provider] Description of Pain: [ xx [ sharp, [ ] dull, [ ] stabbing, [ xx ] cramping, [ ] aching. [ ] constant Date of last bowel movement: 02/16/2023 Describe bowel movement: [ ] normal, [ x ] diarrhea or [ ] Constipation Color of bowel movement: [ xx ] brown [ ] black tarry [ ] maroon [ ] with bright red blood Fever?: [ ] Yes [ x ] No Able to drink liquids without vomiting :[ ] Yes [ xx ] No sometimes vomits Able to eat solid food without vomiting: [ ] Yes [ xx ] No sometime vomit Pain become worse with eating or drinking? yes Gallbladder still in place? [ xx ] Yes or [ ] No. Still taking PPI? [ ] Yes or [ xx ] No. Was prescribed Protonix at ED 02/15/2023 If yes, frequency: [ ] once or [ ] twice daily. Xx TID Symptoms of esophageal reflux?: no Do you smoke, drink alcohol, caffeine or use NSAIDS? no Surgery with in last month: No If yes: Incision: Positive red answers verbally delivered to ESCROW MANAGER or designee Message routed to CODI or designee General triage directions: If pt calling for the second time with C/O abd pain, pt given apt and DW CODI if need urgent slot that is not available. Notify FD/PAR apt for chart prep Pain is common in left side for Shahnaz and can be normal on the right side for Sleeve Pain is normal in the absence of any fever, n/v/d/c, and inadequate fluid intake Usually described as burning, searing, stabbing, ripping, tugging or pinching Pain made worse with movement, usually laying to sitting, sitting to standing, etc Pain is a sudden onset, lasting about a week and will quickly resolve Take pain meds as ordered (no additional narcotics will be given without appt). If out of narcotic given in the hospital, will need to take Tylenol. Apply ice/heat to site as comfortable Continue to ambulate as this will continue to help reduce the risk of DVT and pneumonia. Call the office with worsening symptoms or with any further questions or concerns documented in this encounterSParkview [id number] Telephone encounter Note* Telephone Encounter - Harsha Bell NP - 03/23/2023 2:03 PM EST This patient had been prescribed PPI and Carafate with an EGD ordered. Patient has yet to complete the EGD. I will route this to ALS to get patient scheduled again. [facility] [id number] Telephone encounter Note* Telephone Encounter - Libia Nunez LPN - 03/23/2023 1:33 PM EST [facility] 12/03/2021- Suhail Patient has called with continued pain in abdomen pain is intermittent aggravated by eating. Deniesfever. Some N/V. Was in [facility] last week and Ugi was done. [facility] [id number] Emergency department Note* Mann Kc RN - 03/04/2023 6:44 PM EST ED Attending walks the patient without difficulty. Patient walks with a slow stable gait. Mann Kc RN 03/04/23 1845 [facility] [id number] Emergency department Note* Mann Kc RN - 03/04/2023 6:44 PM EST ED Attending walks the patient without difficulty. Patient walks with a slow stable gait. Mann Kc RN 03/04/23 184 * Wiliam Caruso DO - 03/04/2023 3:45 PM EST EMERGENCY DEPARTMENT ENCOUNTER Pt Name: Sophie Hicks Birthdate 1965 Date of evaluation: 03/04/2023 ED Provider: Wiliam Caruso DO CHIEF COMPLAINT Chief Complaint Patient presents with Syncope HISTORY OF PRESENT ILLNESS (Location/Symptom, Timing/Onset, Context/Setting, Quality, Duration, Modifying Factors, Severity) Note limiting factors. I wore appropriate PPE for the entirety of this encounter. HPI Sophie Hicks is a 57 y.o. male who presents to the emergency department with syncopal episode. Thepatient reports that he was going to the bathroom and urinating when he suddenly had a loss of consciousness. He is unsure if he hit his head or lost consciousness. The episode was unwitnessed. He reports that he was on the ground for about a minute. He denies any tongue biting or urinary incontinence. He reports that he feels well at this time. He reports poor oral intake and some vomiting due to history of sleeve gastrectomy. The patient was recently admitted and discharged from the hospital where he had an EGD for those symptoms. Nursing Notes were reviewed. Limitations to history: Outside historians: REVIEW OF SYSTEMS Review of Systems Neurological: Positive for syncope. PAST MEDICAL HISTORY Past Medical History: Diagnosis Date Abdominal pain Atrial fibrillation (HCC) Back pain Benign essential HTN 01/29/2015 Blood circulation, collateral CAD (coronary artery disease) mild - dx on cath - neg stress Cerebral artery occlusion with cerebral infarction (HCC) Chronic kidney disease COPD (chronic obstructive pulmonary disease) (HCC) COVID-19 05/03 COVID-19 vaccine series completed 09/25/2020 Moderna COVID-19 vaccine series completed 12/04/2020 BOOSTER CS (cervical spondylosis) 12/25/2004 CERVICAL SPINE DJD Difficulty sleeping Dizziness GERD (gastroesophageal reflux disease) History of colonic polyps 06/21/2013 repeat 2019 Hyperlipidemia Insomnia 08/15/2014 Joint pain, hip Joint pain, knee Memory difficulties Muscle weakness Peripheral polyneuropathy 09/30/2020 Shortness of breath at rest Sleep apnea Snoring SOBOE (shortness of breath on exertion) Type 2 diabetes mellitus (HCC) 03/19/2021 SURGICAL HISTORY Past Surgical History: Procedure Laterality Date APPENDECTOMY BARIATRIC SURGERY 12/03/2021 Dr. Trevino CARDIAC CATHETERIZATION 12/17/2013 NORMAL CORONARY ARTERIES AND LVEF. COLONOSCOPY COLONOSCOPY 2020 CYSTOSCOPY 10/26/2020 CYSTOSCOPY 11/19/2020 EGD (HISTORICAL) 03/02/2023 NECK SURGERY Posterior cervical fusion ROTATOR CUFF REPAIR Bilateral UPPER GASTROINTESTINAL ENDOSCOPY 01/24/2021 Dr. Cabello CURRENT MEDICATIONS Previous Medications ADVAIR DISKUS 250-50 MCG/ACT AEROSOL POWDER INHALE 1 PUFF INTO THE LUNGS TWICE DAILY ALPRAZOLAM (XANAX) 1 MG TABLET Take 1 mg by mouth every 24 hours as needed. ASPIRIN 81 MG CHEWABLE TABLET Chew 81 mg daily. ASPIRIN 81 MG EC TABLET 81 mg daily. ATORVASTATIN (LIPITOR) 80 MG TABLET Take 80 mg by mouth daily. B-12 MICROLOZENGE 500 MCG SUBLINGUAL TABLET dissolve 1 tablet under the tongue once daily BACITRACIN 500 UNIT/GM OINTMENT APPLY TOPICALLY TO AFFECTED AREAS twice a day BACLOFEN (LIORESAL) 10 MG TABLET Take 10 mg by mouth 2 times daily. BUMETANIDE (BUMEX) 1 MG TABLET Take 1 mg by mouth in the morning and 1 mg before bedtime. BUPROPION XL (WELLBUTRIN XL) 150 MG 24 HR TABLET Take 150 mg by mouth daily. BUSPIRONE (BUSPAR) 10 MG TABLET Take 10 mg by mouth 2 times daily. CALCIUM CITRATE 250 MG TABLET Take 2 tablets (500 mg) by mouth in the morning and 2 tablets (500 mg) at noon and 2 tablets (500 mg) before bedtime. Take 2 tablets by mouth three times daily.. CHOLESTYRAMINE (QUESTRAN) 4 G PACKET Take 1 packet (4 g) by mouth 2 times daily. CONTINUOUS BLOOD GLUC SENSOR (Meridium ALEXANDRA 2 SENSOR) [facility] USE DIRECTED; CHANGE SENSOR EVERY 14 DAYS DICLOFENAC SODIUM (VOLTAREN) 1 % GEL apply 2 grams to affected area four times a day DICYCLOMINE (BENTYL) 10 MG CAPSULE Take 10 mg by mouth in the morning and 10 mg at noon and 10 mg in the evening and 10 mg before bedtime. EMOLLIENT (AQUAPHOR ADVANCED THERAPY) OINTMENT ERGOCALCIFEROL (VITAMIN D2) 1.25 MG (31387 UT) CAPSULE take 1 capsule by mouth every week for 8 doses FAMOTIDINE (PEPCID) 20 MG TABLET every 12 hours. FLUTICASONE (FLONASE) 50 MCG/ACT NASAL SPRAY Every 24 hours. FUROSEMIDE (LASIX) 40 MG TABLET Take 40 mg by mouth daily. GABAPENTIN (NEURONTIN) 300 MG CAPSULE Take 600 mg by mouth 3 times daily. HYDROXYZINE PAMOATE (VISTARIL) 25 MG CAPSULE Take 25 mg by mouth in the morning and 25 mg before bedtime. IBUPROFEN 600 MG TABLET take 1 tablet by mouth three times a day if needed with food or milk for 10days LEVOTHYROXINE (SYNTHROID, LEVOXYL) 75 MCG TABLET METHOCARBAMOL (ROBAXIN) 500 MG TABLET Take 1.5 tablets (750 mg) by mouth every 8 hours as needed for muscle spasms for up to 5 days. METOLAZONE (ZAROXOLYN) 2.5 MG TABLET MUPIROCIN (BACTROBAN) 2 % OINTMENT NYSTATIN (MYCOSTATIN) 181640 UNIT/GM POWDER Apply 1 Application topically 2 times daily. Apply topically to affected area two times daily. ONDANSETRON ODT (ZOFRAN-ODT) 4 MG DISINTEGRATING TABLET OXYCODONE-ACETAMINOPHEN (PERCOCET) 5-325 MG TABLET Take 1 tablet by mouth 2 times daily. PANTOPRAZOLE (PROTONIX) 40 MG EC TABLET Take 40 mg by mouth daily. PAROXETINE (PAXIL) 20 MG TABLET Take 20 mg by mouth every morning. POTASSIUM CHLORIDE CR (KLOR-CON M20) 20 MEQ ER TABLET as needed. PROMETHAZINE (PHENERGAN) 12.5 MG TABLET Take 12.5 mg by mouth. SENNA-DOCUSATE SODIUM (SENOKOT-S) 8.6-50 MG TABLET 1-2 tab(s) SERTRALINE (ZOLOFT) 50 MG TABLET Take 50 mg by mouth daily. SILDENAFIL (REVATIO) 20 MG TABLET take 1-5 tablets BY MOUTH NEEDED SILDENAFIL (VIAGRA) 100 MG TABLET Every 24 hours. TAMSULOSIN (FLOMAX) 0.4 MG 24 HR CAPSULE Take 0.4 mg by mouth daily. TORSEMIDE (DEMADEX) 20 MG TABLET Take 20 mg by mouth daily. TRAMADOL ER (ULTRAM-ER) 300 MG 24 HR TABLET Take 300 mg by mouth 3 times daily. TRIAMCINOLONE (KENALOG) 0.1 % CREAM APPLY TO THE AFFECTED AREAS OF LOWER LEGS TWICE DAILY FOR 2 WEEKS... (REFER TO PRESCRIPTION NOTES). VENTOLIN HFA 108 (90 BASE) MCG/ACT INHALER Inhale 2 puffs every 6 hours as needed. ZINC GLUCONATE 50 MG TABLET Take 50 mg by mouth daily. ALLERGIES Iodinated contrast media and Nsaids FAMILY HISTORY Family History Problem Relation Name Age of Onset Osteoarthritis Mother Lung cancer Mother smoker Coronary artery disease Other SOCIAL HISTORY Social History Socioeconomic History Marital status: Tobacco Use Smoking status: Never Smokeless tobacco: Never Substance and Sexual Activity Alcohol use: Never Drug use: No SCREENINGS PHYSICAL EXAM ED Triage Vitals Temp Pulse Resp BP -- -- -- -- SpO2 Temp src Heart Rate Source Patient Position -- -- -- -- BP Location FiO2 (%) -- -- Physical Exam Constitutional: General: He is not in acute distress. HENT: Head: Normocephalic. Eyes: Conjunctiva/sclera: Conjunctivae normal. Cardiovascular: Rate and Rhythm: Normal rate and regular rhythm. Pulmonary: Effort: Pulmonary effort is normal. Abdominal: General: Abdomen is flat. Tenderness: There is no abdominal tenderness. Musculoskeletal: General: No deformity. Skin: General: Skin is warm and dry. Neurological: General: No focal deficit present. Mental Status: He is oriented to person, place, and time. Mental status is at baseline. Comments: NIH stroke scale is 0 Psychiatric: Mood and Affect: Mood normal. DIAGNOSTIC RESULTS RADIOLOGY (Per Emergency Physician): Interpretation per the Radiologist below, if available at the time of this note: XR chest 1 view Final Result No acute process. Report Dictated on Electronically Signed By: Corby De La Garza DO Electronically Signed Date/Time: 03/04/2023 4:42 PM EST LABS: Labs Reviewed BASIC METABOLIC PANEL - Abnormal Result Value SODIUM 139 POTASSIUM 4.2 CHLORIDE 108 (*) CARBON DIOXIDE 22 UREA NITROGEN 15 CREATININE 1.34 (*) GLUCOSE 96 CALCIUM 8.5 ANION GAP 9 eGFR 61.0 CBC (HEMOGRAM) - Abnormal Auto WBC 6.7 RBC 5.02 Hemoglobin 14.7 Hematocrit 43.2 MCV 86.1 MCH 29.4 MCHC 34.1 RDW 13.6 Platelets 108 (*) MPV 6.8 (*) TROPONIN I - Normal TROPONIN I <0.012 Narrative: Patients with high levels of Biotin oral intake (ie >5 mg/day) may have falsely decreased Troponin levels. All other labs were within normal range or not returned as of this dictation. EMERGENCY DEPARTMENT COURSE and DIFFERENTIAL DIAGNOSIS/MDM: Vitals: Vitals: 03/04/23 1730 03/04/23 1735 03/04/23 1805 03/04/23 1832 BP: 96/62 102/81 102/81 BP Location: Patient Position: Pulse: 93 75 68 Resp: 16 16 Temp: TempSrc: SpO2: 92% 93% Weight: Medications sodium chloride 0.9 % bolus 1,000 mL (1,000 mL IntraVENous New Bag 03/04/23 162) traMADol (Ultram) tablet 50 mg (50 mg Oral Given 03/04/231620) famotidine (Pepcid) 20 mg in sodium chloride (PF) 0.9 % 10 mL injection (20 mg IntraVENous Given 03/04/23 175) aluminum & magnesium hydroxide-simethicone (Mylanta) 200-200-20 MG/5ML oral suspension 20 mL (20 mL Oral Given 03/04/231753) morphine injection 2 mg (2 mg IntraVENous Given 03/04/23 9629) MDM The patient presented with chief complaint of syncope. The patient appears well at this time no acute distress, vitals are stable. See history and physical exam above. Differential diagnosis includesbut is not limited to micturition syncope, dehydration, arrhythmia, anemia, structural heart abnormality. The patient was given 2 L normal saline bolus. The patient is also complaining of chronic epig astric pain. I reviewed the patient's discharge summary from yesterday, 03/03/2023. He had an EGD performed at that time. To aid in management, I performed an independent interpretation of all laboratory tests, EKG, imaging, and other diagnostics ordered. Blood counts, electrolytes, kidney function, troponin are negative for acute processes. EKG revealsnormal sinus rhythm with no evidence of acute ischemia. Following 2 L normal saline bolus the patient has improved symptoms. The patient was ambulated and was able to ambulate without difficulty. Thepatient is currently resting comfortably, vitals are stable. Plan for discharge with follow-up to PCP. I Wiliam Caruso DO am the filterer of record. PROCEDURES: Unless otherwise noted below, none Procedures FINAL IMPRESSION 1. Syncope, unspecified syncope type DISPOSITION Discharge 03/04/2023 06:32:47 PM PATIENT REFERRED TO: Wiliam Fernandez MD [address] [facility] [id number] [facility] [address] [facility] [phone] DISCHARGE MEDICATIONS: New Prescriptions No medications on file (Comment: Please note this report has been produced using speech recognition software and may contain errors related to that system including errors in grammar, punctuation, and spelling, as well as words and phrases that may be inappropriate. If there are any questions or concerns please feel freeto contact the dictating provider for clarification.) Wiliam Caruso DO (electronically signed) Emergency Medicine Provider Wiliam Caruso DO 03/04/23 379 * Mann Kc RN - 03/04/2023 3:45 PM EST Patient had passed out while walking to the bathroom at home. Patient states all he remembers is being on the floor with all the lynn pictures on the floor. * Chante Cavanaugh RN - 03/04/2023 3:45 PM EST Bed: 32 Expected date: Expected time: Means of arrival: Comments: Orestes Cavanaugh RN 03/04/23 1546 documented in this [facility]11-22-2023 Emergency department Note* Chante Cavanaugh RN - 03/04/2023 3:45 PM EST Bed: 32 Expected date: Expected time: Means of arrival: Comments: Orestes Cavanaugh RN 03/04/23 [address] [place] [id number] Emergency department Triage note* Mann Kc RN - 03/04/2023 3:45 PM EST Patient had passed out while walking to the bathroom at home. Patient states all he remembers is being on the floor with all the lynn pictures on the floor. [id number] Physician Emergency department Note* Wiliam Caruso DO - 03/04/2023 3:45 PM EST EMERGENCY DEPARTMENT ENCOUNTER Pt Name: Sophie Hicks Birthdate 1965 Date of evaluation: 03/04/2023 ED Provider: Wiliam Caurso DO CHIEF COMPLAINT Chief Complaint Patient presents with Syncope HISTORY OF PRESENT ILLNESS (Location/Symptom, Timing/Onset, Context/Setting, Quality, Duration, Modifying Factors, Severity) Note limiting factors. I wore appropriate PPE for the entirety of this encounter. HPI Sophie Hicks is a 57 y.o. male who presents to the emergency department with syncopal episode. Thepatient reports that he was going to the bathroom and urinating when he suddenly had a loss of consciousness. He is unsure if he hit his head or lost consciousness. The episode was unwitnessed. He reports that he was on the ground for about a minute. He denies any tongue biting or urinary incontinence. He reports that he feels well at this time. He reports poor oral intake and some vomiting due to history of sleeve gastrectomy. The patient was recently admitted and discharged from the hospital where he had an EGD for those symptoms. Nursing Notes were reviewed. Limitations to history: Outside historians: REVIEW OF SYSTEMS Review of Systems Neurological: Positive for syncope. PAST MEDICAL HISTORY Past Medical History: Diagnosis Date Abdominal pain Atrial fibrillation (HCC) Back pain Benign essential HTN 01/29/2015 Blood circulation, collateral CAD (coronary artery disease) mild - dx on cath - neg stress Cerebral artery occlusion with cerebral infarction ([facility]) Chronic kidney disease COPD (chronic obstructive pulmonary disease) ([facility]) COVID-19 05/03 COVID-19 vaccine series completed 09/25/2020 Moderna COVID-19 vaccine series completed 12/04/2020 BOOSTER CS (cervical spondylosis) 12/25/2004 CERVICAL SPINE DJD Difficulty sleeping Dizziness GERD (gastroesophageal reflux disease) History of colonic polyps 06/21/2013 repeat 2019 Hyperlipidemia Insomnia 08/15/2014 Joint pain, hip Joint pain, knee Memory difficulties Muscle weakness Peripheral polyneuropathy 09/30/2020 Shortness of breath at rest Sleep apnea Snoring SOBOE (shortness of breath on exertion) Type 2 diabetes mellitus ([facility]) 03/19/2021 SURGICAL HISTORY Past Surgical History: Procedure Laterality Date APPENDECTOMY BARIATRIC SURGERY 12/03/2021 Dr. Trevino CARDIAC CATHETERIZATION 12/17/2013 NORMAL CORONARY ARTERIES AND LVEF. COLONOSCOPY COLONOSCOPY 2020 CYSTOSCOPY 10/26/2020 CYSTOSCOPY 11/19/2020 EGD (HISTORICAL) 03/02/2023 NECK SURGERY Posterior cervical fusion ROTATOR CUFF REPAIR Bilateral UPPER GASTROINTESTINAL ENDOSCOPY 01/24/2021 Dr. Cabello CURRENT MEDICATIONS Previous Medications ADVAIR DISKUS 250-50 MCG/ACT AEROSOL POWDER INHALE 1 PUFF INTO THE LUNGS TWICE DAILY ALPRAZOLAM (XANAX) 1 MG TABLET Take 1 mg by mouth every 24 hours as needed. ASPIRIN 81 MG CHEWABLE TABLET Chew 81 mg daily. ASPIRIN 81 MG EC TABLET 81 mg daily. ATORVASTATIN (LIPITOR) 80 MG TABLET Take 80 mg by mouth daily. B-12 MICROLOZENGE 500 MCG SUBLINGUAL TABLET dissolve 1 tablet under the tongue once daily BACITRACIN 500 UNIT/GM OINTMENT APPLY TOPICALLY TO AFFECTED AREAS twice a day BACLOFEN (LIORESAL) 10 MG TABLET Take 10 mg by mouth 2 times daily. BUMETANIDE (BUMEX) 1 MG TABLET Take 1 mg by mouth in the morning and 1 mg before bedtime. BUPROPION XL (WELLBUTRIN XL) 150 MG 24 HR TABLET Take 150 mg by mouth daily. BUSPIRONE (BUSPAR) 10 MG TABLET Take 10 mg by mouth 2 times daily. CALCIUM CITRATE 250 MG TABLET Take 2 tablets (500 mg) by mouth in the morning and 2 tablets (500 mg) at noon and 2 tablets (500 mg) before bedtime. Take 2 tablets by mouth three times daily.. CHOLESTYRAMINE (QUESTRAN) 4 G PACKET Take 1 packet (4 g) by mouth 2 times daily. CONTINUOUS BLOOD GLUC SENSOR (Meridium ALEXANDRA 2 SENSOR) [facility] USE DIRECTED; CHANGE SENSOR EVERY 14 DAYS DICLOFENAC SODIUM (VOLTAREN) 1 % GEL apply 2 grams to affected area four times a day DICYCLOMINE (BENTYL) 10 MG CAPSULE Take 10 mg by mouth in the morning and 10 mg at noon and 10 mg in the evening and 10 mg before bedtime. EMOLLIENT (AQUAPHOR ADVANCED THERAPY) OINTMENT ERGOCALCIFEROL (VITAMIN D2) 1.25 MG (18938 UT) CAPSULE take 1 capsule by mouth every week for 8 doses FAMOTIDINE (PEPCID) 20 MG TABLET every 12 hours. FLUTICASONE (FLONASE) 50 MCG/ACT NASAL SPRAY Every 24 hours. FUROSEMIDE (LASIX) 40 MG TABLET Take 40 mg by mouth daily. GABAPENTIN (NEURONTIN) 300 MG CAPSULE Take 600 mg by mouth 3 times daily. HYDROXYZINE PAMOATE (VISTARIL) 25 MG CAPSULE Take 25 mg by mouth in the morning and 25 mg before bedtime. IBUPROFEN 600 MG TABLET take 1 tablet by mouth three times a day if needed with food or milk for 10days LEVOTHYROXINE (SYNTHROID, LEVOXYL) 75 MCG TABLET METHOCARBAMOL (ROBAXIN) 500 MG TABLET Take 1.5 tablets (750 mg) by mouth every 8 hours as needed for muscle spasms for up to 5 days. METOLAZONE (ZAROXOLYN) 2.5 MG TABLET MUPIROCIN (BACTROBAN) 2 % OINTMENT NYSTATIN (MYCOSTATIN) 752064 UNIT/GM POWDER Apply 1 Application topically 2 times daily. Apply topically to affected area two times daily. ONDANSETRON ODT (ZOFRAN-ODT) 4 MG DISINTEGRATING TABLET OXYCODONE-ACETAMINOPHEN (PERCOCET) 5-325 MG TABLET Take 1 tablet by mouth 2 times daily. PANTOPRAZOLE (PROTONIX) 40 MG EC TABLET Take 40 mg by mouth daily. PAROXETINE (PAXIL) 20 MG TABLET Take 20 mg by mouth every morning. POTASSIUM CHLORIDE CR (KLOR-CON M20) 20 MEQ ER TABLET as needed. PROMETHAZINE (PHENERGAN) 12.5 MG TABLET Take 12.5 mg by mouth. SENNA-DOCUSATE SODIUM (SENOKOT-S) 8.6-50 MG TABLET 1-2 tab(s) SERTRALINE (ZOLOFT) 50 MG TABLET Take 50 mg by mouth daily. SILDENAFIL (REVATIO) 20 MG TABLET take 1-5 tablets BY MOUTH NEEDED SILDENAFIL (VIAGRA) 100 MG TABLET Every 24 hours. TAMSULOSIN (FLOMAX) 0.4 MG 24 HR CAPSULE Take 0.4 mg by mouth daily. TORSEMIDE (DEMADEX) 20 MG TABLET Take 20 mg by mouth daily. TRAMADOL ER (ULTRAM-ER) 300 MG 24 HR TABLET Take 300 mg by mouth 3 times daily. TRIAMCINOLONE (KENALOG) 0.1 % CREAM APPLY TO THE AFFECTED AREAS OF LOWER LEGS TWICE DAILY FOR 2 WEEKS... (REFER TO PRESCRIPTION NOTES). VENTOLIN HFA 108 (90 BASE) MCG/ACT INHALER Inhale 2 puffs every 6 hours as needed. ZINC GLUCONATE 50 MG TABLET Take 50 mg by mouth daily. ALLERGIES Iodinated contrast media and Nsaids FAMILY HISTORY Family History Problem Relation Name Age of Onset Osteoarthritis Mother Lung cancer Mother smoker Coronary artery disease Other SOCIAL HISTORY Social History Socioeconomic History Marital status: Tobacco Use Smoking status: Never Smokeless tobacco: Never Substance and Sexual Activity Alcohol use: Never Drug use: No SCREENINGS PHYSICAL EXAM ED Triage Vitals Temp Pulse Resp BP -- -- -- -- SpO2 Temp src Heart Rate Source Patient Position -- -- -- -- BP Location FiO2 (%) -- -- Physical Exam Constitutional: General: He is not in acute distress. HENT: Head: Normocephalic. Eyes: Conjunctiva/sclera: Conjunctivae normal. Cardiovascular: Rate and Rhythm: Normal rate and regular rhythm. Pulmonary: Effort: Pulmonary effort is normal. Abdominal: General: Abdomen is flat. Tenderness: There is no abdominal tenderness. Musculoskeletal: General: No deformity. Skin: General: Skin is warm and dry. Neurological: General: No focal deficit present. Mental Status: He is oriented to person, place, and time. Mental status is at baseline. Comments: NIH stroke scale is 0 Psychiatric: Mood and Affect: Mood normal. DIAGNOSTIC RESULTS RADIOLOGY (Per Emergency Physician): Interpretation per the Radiologist below, if available at the time of this note: XR chest 1 view Final Result No acute process. Report Dictated on Electronically Signed By: Corby De La Garza DO Electronically Signed Date/Time: 03/04/2023 4:42 PM EST LABS: Labs Reviewed BASIC METABOLIC PANEL - Abnormal Result Value SODIUM 139 POTASSIUM 4.2 CHLORIDE 108 (*) CARBON DIOXIDE 22 UREA NITROGEN 15 CREATININE 1.34 (*) GLUCOSE 96 CALCIUM 8.5 ANION GAP 9 eGFR 61.0 CBC (HEMOGRAM) - Abnormal Auto WBC 6.7 RBC 5.02 Hemoglobin 14.7 Hematocrit 43.2 MCV 86.1 MCH 29.4 MCHC 34.1 RDW 13.6 Platelets 108 (*) MPV 6.8 (*) TROPONIN I - Normal TROPONIN I <0.012 Narrative: Patients with high levels of Biotin oral intake (ie >5 mg/day) may have falsely decreased Troponin levels. All other labs were within normal range or not returned as of this dictation. EMERGENCY DEPARTMENT COURSE and DIFFERENTIAL DIAGNOSIS/MDM: Vitals: Vitals: 03/04/23 1730 03/04/23 1735 03/04/23 1805 03/04/23 1832 BP: 96/62 102/81 102/81 BP Location: Patient Position: Pulse: 93 75 68 Resp: 16 16 Temp: TempSrc: SpO2: 92% 93% Weight: Medications sodium chloride 0.9 % bolus 1,000 mL (1,000 mL IntraVENous New Bag 03/04/23 162) traMADol (Ultram) tablet 50 mg (50 mg Oral Given 03/04/23 162) famotidine (Pepcid) 20 mg in sodium chloride (PF) 0.9 % 10 mL injection (20 mg IntraVENous Given 03/04/231753) aluminum & magnesium hydroxide-simethicone (Mylanta) 200-200-20 MG/5ML oral suspension 20 mL (20 mL Oral Given 03/04/231753) morphine injection 2 mg (2 mg IntraVENous Given 03/04/231753) MDM The patient presented with chief complaint of syncope. The patient appears well at this time no acute distress, vitals are stable. See history and physical exam above. Differential diagnosis includesbut is not limited to micturition syncope, dehydration, arrhythmia, anemia, structural heart abnormality. The patient was given 2 L normal saline bolus. The patient is also complaining of chronic epig astric pain. I reviewed the patient's discharge summary from yesterday, 03/03/2023. He had an EGD performed at that time. To aid in management, I performed an independent interpretation of all laboratory tests, EKG, imaging, and other diagnostics ordered. Blood counts, electrolytes, kidney function, troponin are negative for acute processes. EKG revealsnormal sinus rhythm with no evidence of acute ischemia. Following 2 L normal saline bolus the patient has improved symptoms. The patient was ambulated and was able to ambulate without difficulty. Thepatient is currently resting comfortably, vitals are stable. Plan for discharge with follow-up to PCP. Pankaj Caruso DO am the filterer of record. PROCEDURES: Unless otherwise noted below, none Procedures FINAL IMPRESSION 1. Syncope, unspecified syncope type DISPOSITION Discharge 03/04/2023 06:32:47 PM PATIENT REFERRED TO: Wiliam Fernandez [facility] [address] [facility] [id number] [facility] [address] [facility] [id number] DISCHARGE MEDICATIONS: New Prescriptions No medications on file (Comment: Please note this report has been produced using speech recognition software and may contain errors related to that system including errors in grammar, punctuation, and spelling, as well as words and phrases that may be inappropriate. If there are any questions or concerns please feel freeto contact the dictating provider for clarification.) Wiliam Caruso DO (electronically signed) Emergency Medicine Provider Wiliam Caruso DO 03/04/23 0502 [id number] Plan of care note* Care Plan - Tiff Escamilla RN - 03/03/2023 9:11 AM EST Problem: Pain - Adult Goal: Verbalizes/displays adequate comfort level or baseline comfort level Outcome: Progressing Problem: Safety - Adult Goal: Free from fall injury Outcome: Progressing Problem: Chronic Conditions and Co-morbidities Goal: Patient's chronic conditions and co-morbidity symptoms are monitored and maintained or improved Outcome: Progressing Problem: Gastrointestinal - Adult Goal: Minimal or absence of nausea and vomiting Outcome: Progressing [id number] Miscellaneous Notes* Care Plan - Tiff Escamilla RN - 03/03/2023 9:11 AM EST Problem: Pain - Adult Goal: Verbalizes/displays adequate comfort level or baseline comfort level Outcome: Progressing Problem: Safety - Adult Goal: Free from fall injury Outcome: Progressing Problem: Chronic Conditions and Co-morbidities Goal: Patient's chronic conditions and co-morbidity symptoms are monitored and maintained or improved Outcome: Progressing Problem: Gastrointestinal - Adult Goal: Minimal or absence of nausea and vomiting Outcome: Progressing * Care Plan - Michelle Dye RN - 03/02/2023 11:08 PM EST Problem: Pain - Adult Goal: Verbalizes/displays adequate comfort level or baseline comfort level Outcome: Progressing Problem: Safety - Adult Goal: Free from fall injury Outcome: Progressing Problem: Chronic Conditions and Co-morbidities Goal: Patient's chronic conditions and co-morbidity symptoms are monitored and maintained or improved Outcome: Progressing Problem: Gastrointestinal - Adult Goal: Minimal or absence of nausea and vomiting Outcome: Progressing * Perioperative Nursing Note - Crystal Elkins RN - 03/02/2023 2:50 PM EST Patient family/visitor updated by RN at this time. Update to at home will meet patient in [id number], patient in for transport * Perioperative Nursing Note - Crystal Elkins RN - 03/02/2023 2:[address] Reynoso notified no orders for post procedure pain were placed, verbal order obtained for PACU orders * Op Note - Brielle Fofana MD - 03/02/2023 1:43 PM EST Images from the original note were not included. OPERATIVE REPORT 03/02/23 PATIENT: Sophie Hicks DATE OF : 1965 PROCEDURE: EGD with biopsy SURGEON: Dr. Cabello MACHINE HAMPER MAKER: Brielle Fofana PRE-OPERATIVE DIAGNOSES: Abdominal pain Nausea and vomiting History of sleeve gastrectomy POST-OPERATIVE DIAGNOSES: Same, bile reflux ANESTHESIA: MAC FLUIDS: Per Anesthesia ESTIMATED BLOOD LOSS: Minimal URINE OUTPUT: Not recorded CONSENT: The patient was seen in the preoperative area. The details of the procedure were discussedincluding the risks, benefits, complications, alternatives, expected recovery and outcomes. The site of surgery was properly noted/marked if necessary per policy. INFECTION CONTROL: Pre-operative antibiotics were not given because antibiotics are not indicated for this procedure. No Infection Present SPECIMENS: ID Type Source Tests Collected by Time 1 : ANTRUM Tissue Esophagus TISSUE EXAM Louisa Cabello DO 03/02/2023 4726 COMPLICATIONS: None; patient tolerated the procedure well. INDICATIONS FOR PROCEDURE: The patient is a 57 y.o. male with history of above preop diagnosis. I explained the risk, benefits, expected outcome, and alternatives to the procedure. Patient understands and is in agreement to proceed with operation. PROCEDURE: The patient was transported to the operating room and identified by name and number. The patient was positioned in the left lateral decubitus position. A bite block was placed and monitored anesthesia was provided by the anesthesia team. An operating room team time out was performed confirming the identity of the patient and the planned procedure. The endoscope was easily inserted into the oropharynx and guided under direct vision into the esophagus, stomach, and duodenum. The duodenal bulb and second portion were unremarkable. The scope was withdrawn to the stomach and retroflexed. Bile reflux and inflammatory change was noted throughout the stomach. Antral biopsies were obtained for Helicobacter pylori. No erosions or ulcers were noted. The scope was withdrawn to the esophagus. The Z-line and gastroesophageal junction were identified without evidence of Nixon s esophagus, a hiatal hernia or esophagitis. The patient tolerated the procedure very well. The patient was then transferred to the recovery area in good condition. There were no apparent complications. Dr. Cabello was present for the entire duration of the procedure. * Care Coordination - Robert Sofia RN - 03/02/2023 11:32 AM EST Care Managment Initial Assessment Date: 03/02/2023 Patient Name: Sophie Hicks : 1965 Patient Information Source of Information: Patient Cognition/Language: WFL - Within Functional Limits Permission given to speak with patient territory account representative/caregiver as indicated: Confirmation of Payer with patient/family: Yes Payer Name: MEDICARE PART A AND B : No Confirmation of Primary Care Physician: Confirmed PCP Name: Wiliam Fernandez MD Seen in last 2 years?: Yes Primary Caregiver: Self If assistance needed, confirmed caregiver ready, willing and able to care for patient at discharge: Confirmed with: Living Arrangements Current Residence: House Number of Floors 1 Number of Entry Steps: (ramp) Bed/Bath Levels: Both first floor Facility: Facility Name: Plan to Return: Lives with: Spouse/significant other Support Systems: Spouse/significant other Activities of Daily Living Ambulation: Independent Bathing/Dressing: Independent Elimination/Continence/Toileting: Independent Feeding: Independent Who Assists with Activities of Daily Living: Instrumental Activities of Daily Living Prescription Coverage: Yes [facility] Medication Management: Independent Transportation/Shopping: Independent Transportation Mode: Car Needs Assistance with Transportation at Discharge: No Meal Preparation: Independent Laundry/Cleaning: Independent Finances/Bill Paying: Independent Communication: Types of Care Services/Equipment Utilized Care Services: (NA) Dialysis Type: NA Durable Medical Equipment: Walker, Cane, Wheelchair (standard or power), Other (Comment) (stair chair, grab bars in bathroom) Patient's Goal/Discharge Plan Patient expects to be discharged to: home with Discharge Planning Actions: No needs identified Patient's Choice Rights and [employer] and Collaborative Relationships Disclosed as Indicated for Post-Acute Care: NA Interdisciplinary Team Engagement: Social Work Referral for: Additional Information: Met with patient at their bedside. Introduced self and role. Discussed discharge planning. Patient has help at home and transportation available upon discharge. Discharge plan is home with . No discharge planning needs noted. Patient verbalized understanding of discharge plan and agrees with plan. * Care Plan - Judith Whelan RN - 03/01/2023 11:55 PM EST Problem: Pain - Adult Goal: Verbalizes/displays adequate comfort level or baseline comfort level 03/01/20232354 by Judith Whelan RN Outcome: Progressing Problem: Safety - Adult Goal: Free from fall injury 03/01/20232354 by Judith Whelan RN Outcome: Progressing Problem: Gastrointestinal - Adult Goal: Minimal or absence of nausea and vomiting 03/01/20232354 by Judith Whelan RN Outcome: Progressing * Care Plan - Jennie Worley RN - 03/01/2023 9:26 AM EST Problem: Pain - Adult Goal: Verbalizes/displays adequate comfort level or baseline comfort level Outcome: Progressing Problem: Safety - Adult Goal: Free from fall injury Outcome: Progressing Problem: Chronic Conditions and Co-morbidities Goal: Patient's chronic conditions and co-morbidity symptoms are monitored and maintained or improved Outcome: Progressing Problem: Gastrointestinal - Adult Goal: Minimal or absence of nausea and vomiting Outcome: Progressing * Care Plan - Jennie Worley RN - 03/01/2023 9:26 AM EST Problem: Pain - Adult Goal: Verbalizes/displays adequate comfort level or baseline comfort level Outcome: Progressing Problem: Safety - Adult Goal: Free from fall injury Outcome: Progressing Problem: Chronic Conditions and Co-morbidities Goal: Patient's chronic conditions and co-morbidity symptoms are monitored and maintained or improved Outcome: Progressing Problem: Gastrointestinal - Adult Goal: Minimal or absence of nausea and vomiting Outcome: Progressing * Care Plan - Bertha Francois RN - 03/01/2023 3:28 AM EST Problem: Pain - Adult Goal: Verbalizes/displays adequate comfort level or baseline comfort level Outcome: Progressing Problem: Safety - Adult Goal: Free from fall injury Outcome: Progressing Problem: Chronic Conditions and Co-morbidities Goal: Patient's chronic conditions and co-morbidity symptoms are monitored and maintained or improved Outcome: Progressing Problem: Gastrointestinal - Adult Goal: Minimal or absence of nausea and vomiting Outcome: Progressing documented in this [facility]11-21-2023 Hospital Discharge instructions* Discharge Instructions* Brielle Fofana MD - 03/03/2023 7:46 AM EST Take medications for bile reflux as prescribed. documented in this [facility]11-20-2023 Plan of care note* Care Plan - Michelle Dye RN - 03/02/2023 11:08 PM EST Problem: Pain - Adult Goal: Verbalizes/displays adequate comfort level or baseline comfort level Outcome: Progressing Problem: Safety - Adult Goal: Free from fall injury Outcome: Progressing Problem: Chronic Conditions and Co-morbidities Goal: Patient's chronic conditions and co-morbidity symptoms are monitored and maintained or improved Outcome: Progressing Problem: Gastrointestinal - Adult Goal: Minimal or absence of nausea and vomiting Outcome: Progressing [place] [id number] Note* Perioperative Nursing Note - Crystal Elkins RN - 03/02/2023 2:50 PM EST Patient family/visitor updated by RN at this time. Update to at home will meet patient in [id number], patient in for transport [place] [id number] Note* Perioperative Nursing Note - Crystal Elkins RN - 03/02/2023 2:[address] Reynoso notified no orders for post procedure pain were placed, verbal order obtained for PACU orders [place] [id number] Note* Op Note - Brielle Fofana MD - 03/02/2023 1:43 PM EST Images from the original note were not included. OPERATIVE REPORT 03/02/23 PATIENT: Sophie Hicks DATE OF : 1965 PROCEDURE: EGD with biopsy SURGEON: Dr. Cabello MACHINE HAMPER MAKER: Brielle Fofana PRE-OPERATIVE DIAGNOSES: Abdominal pain Nausea and vomiting History of sleeve gastrectomy POST-OPERATIVE DIAGNOSES: Same, bile reflux ANESTHESIA: MAC FLUIDS: Per Anesthesia ESTIMATED BLOOD LOSS: Minimal URINE OUTPUT: Not recorded CONSENT: The patient was seen in the preoperative area. The details of the procedure were discussedincluding the risks, benefits, complications, alternatives, expected recovery and outcomes. The site of surgery was properly noted/marked if necessary per policy. INFECTION CONTROL: Pre-operative antibiotics were not given because antibiotics are not indicated for this procedure. No Infection Present SPECIMENS: ID Type Source Tests Collected by Time 1 : ANTRUM Tissue Esophagus TISSUE EXAM Louisa Cabello, 03/02/2023 1634 COMPLICATIONS: None; patient tolerated the procedure well. INDICATIONS FOR PROCEDURE: The patient is a 57 y.o. male with history of above preop diagnosis. I explained the risk, benefits, expected outcome, and alternatives to the procedure. Patient understands and is in agreement to proceed with operation. PROCEDURE: The patient was transported to the operating room and identified by name and number. The patient was positioned in the left lateral decubitus position. A bite block was placed and monitored anesthesia was provided by the anesthesia team. An operating room team time out was performed confirming the identity of the patient and the planned procedure. The endoscope was easily inserted into the oropharynx and guided under direct vision into the esophagus, stomach, and duodenum. The duodenal bulb and second portion were unremarkable. The scope was withdrawn to the stomach and retroflexed. Bile reflux and inflammatory change was noted throughout the stomach. Antral biopsies were obtained for Helicobacter pylori. No erosions or ulcers were noted. The scope was withdrawn to the esophagus. The Z-line and gastroesophageal junction were identified without evidence of Nixon s esophagus, a hiatal hernia or esophagitis. The patient tolerated the procedure very well. The patient was then transferred to the recovery area in good condition. There were no apparent complications. Dr. Cabello was present for the entire duration of the procedure. [id number] Note* Care Coordination - Robert Sofia RN - 03/02/2023 11:32 AM EST Care Managment Initial Assessment Date: 03/02/2023 Patient Name: Sophie Hicks : 1965 Patient Information Source of Information: Patient Cognition/Language: WFL - Within Functional Limits Permission given to speak with patient territory account representative/caregiver as indicated: Confirmation of Payer with patient/family: Yes Payer Name: MEDICARE PART A AND B : No Confirmation of Primary Care Physician: Confirmed PCP Name: Wiliam Fernandez MD Seen in last 2 years?: Yes Primary Caregiver: Self If assistance needed, confirmed caregiver ready, willing and able to care for patient at discharge: Confirmed with: Living Arrangements Current Residence: House Number of Floors 1 Number of Entry Steps: (ramp) Bed/Bath Levels: Both first floor Facility: Facility Name: Plan to Return: Lives with: Spouse/significant other Support Systems: Spouse/significant other Activities of Daily Living Ambulation: Independent Bathing/Dressing: Independent Elimination/Continence/Toileting: Independent Feeding: Independent Who Assists with Activities of Daily Living: Instrumental Activities of Daily Living Prescription Coverage: Yes Pharmacy Used: [facility] in [place] Medication Management: Independent Transportation/Shopping: Independent Transportation Mode: Car Needs Assistance with Transportation at Discharge: No Meal Preparation: Independent Laundry/Cleaning: Independent Finances/Bill Paying: Independent Communication: Types of Care Services/Equipment Utilized Care Services: (NA) Dialysis Type: NA Durable Medical Equipment: Walker, Cane, Wheelchair (standard or power), Other (Comment) (stair chair, grab bars in bathroom) Patient's Goal/Discharge Plan Patient expects to be discharged to: home with Discharge Planning Actions: No needs identified Patient's Choice Rights and [employer] and Collaborative Relationships Disclosed as Indicated for Post-Acute Care: NA Interdisciplinary Team Engagement: Social Work Referral for: Additional Information: Met with patient at their bedside. Introduced self and role. Discussed discharge planning. Patient has help at home and transportation available upon discharge. Discharge plan is home with . No discharge planning needs noted. Patient verbalized understanding of discharge plan and agrees with plan. [id number] Plan of care note* Care Plan - Judith Whelan RN - 03/01/2023 11:55 PM EST Problem: Pain - Adult Goal: Verbalizes/displays adequate comfort level or baseline comfort level 03/01/20232354 by Judith Whelan RN Outcome: Progressing Problem: Safety - Adult Goal: Free from fall injury 03/01/20232354 by Judith Whelan RN Outcome: Progressing Problem: Gastrointestinal - Adult Goal: Minimal or absence of nausea and vomiting 03/01/20232354 by Judith Whelan RN Outcome: Progressing [id number] History of Present illness Narrative* Zeny Mckenzie - 03/01/2023 10:32 AM EST Nutrition rescreen completed. Chart reviewed. Patient to be monitored and followed by the diet nanotechnician. * Fred Maya MD - 03/01/2023 8:26 AM EST Images from the original note were not included. Department of General Surgery Surg 4 Service Daily Progress Note ADMIT DATE: 02/27/2023 TODAY'S DATE: 03/01/2023 SUBJECTIVE: No acute events overnight. Pain is well controlled on current medications. Feels betterthan yesterday. Some generalized abdominal pain. Denies nausea and vomiting. Patient is voiding spontaneously and ambulating independently. ROS: Noted above unless otherwise mentioned. OBJECTIVE: VITALS: Temp: [36.2 C (97.2 F)-37.1 C (98.8 F)] 37.1 C (98.8 F) Heart Rate: [58-67] 67 Resp: [16-18] 18 BP: (119-155)/(56-86) 136/82 INTAKE/OUTPUT: Intake/Output Summary (Last 24 hours) at 03/01/2023 0826 Last data filed at 03/01/2023 0806 Gross per 24 hour Intake 1053.34 ml Output 500 ml Net 553.34 ml I/O last 3 completed shifts: In: 1356.7 (10.3 mL/kg) [I.V.:1356.7 (10.3 mL/kg)] Out: - (0 mL/kg) Weight: 131.5 kg I/O this shift: In: - Out: 500 [Urine:500] PHYSICAL EXAM: Gen: NAD, A&Ox3, pain well controlled Heart: RRR, well perfused. Lungs: Symmetric chest rise, normal work of breathing, no respiratory distress. Abd: Soft, non-distended. Mild, generalized abdominal pain to palpation, non-specific. Ext: Non-edematous, non-erythematous, no tenderness. Skin: Warm, dry, well perfused, no obvious rashes, cellulitis or gross discoloration LABS CBC: White Blood Cell Count Date Value Ref Range Status 03/22/2022 6.7 3.8 - 10.8 Thousand/uL Final Auto WBC Date Value Ref Range Status 03/01/2023 5.7 3.6 - 10.7 10*3/uL Final 02/28/2023 5.7 3.6 - 10.7 10*3/uL Final 02/27/2023 7.3 3.6 - 10.7 10*3/uL Final HEMOGLOBIN Date Value Ref Range Status 03/22/2022 14.1 13.2 - 17.1 g/dL Final Hemoglobin Date Value Ref Range Status 03/01/2023 13.6 13.0 - 18.0 g/dL Final 02/28/2023 13.6 13.0 - 18.0 g/dL Final 02/27/2023 13.7 13.0 - 18.0 g/dL Final Platelets Date Value Ref Range Status 03/01/2023 89 (L) 140 - 440 10*3/uL Final 02/28/2023 103 (L) 140 - 440 10*3/uL Final 02/27/2023 118 (L) 140 - 440 10*3/uL Final BMP: SODIUM Date Value Ref Range Status 03/01/2023 137 135 - 145 mmol/L Final 02/28/2023 139 135 - 145 mmol/L Final 02/27/2023 139 135 - 145 mmol/L Final POTASSIUM Date Value Ref Range Status 03/01/2023 4.1 3.5 - 5.1 mmol/L Final 02/28/2023 4.1 3.5 - 5.1 mmol/L Final 02/27/2023 3.9 3.5 - 5.1 mmol/L Final CHLORIDE Date Value Ref Range Status 03/01/2023 104 98 - 107 mmol/L Final 02/28/2023 106 98 - 107 mmol/L Final 02/27/2023 107 98 - 107 mmol/L Final Carbon Dioxide (CO2) Date Value Ref Range Status 03/22/2022 27 20 - 32 mmol/L Final CARBON DIOXIDE Date Value Ref Range Status 03/01/2023 26 22 - 30 mmol/L Final 02/28/2023 25 22 - 30 mmol/L Final 02/27/2023 24 22 - 30 mmol/L Final Urea Nitrogen (BUN) Date Value Ref Range Status 03/22/2022 14 7 - 25 mg/dL Final UREA NITROGEN Date Value Ref Range Status 03/01/2023 13 9 - 20 mg/dL Final 02/28/2023 14 9 - 20 mg/dL Final 02/27/2023 13 9 - 20 mg/dL Final Creatinine Date Value Ref Range Status 03/22/2022 1.22 0.70 - 1.30 mg/dL Final CREATININE Date Value Ref Range Status 03/01/2023 1.07 0.66 - 1.25 mg/dL Final 02/28/2023 1.09 0.66 - 1.25 mg/dL Final 02/27/2023 1.06 0.66 - 1.25 mg/dL Final 01/08/2022 1.22 0.52 - 1.25 mg/dL Final 12/19/2021 1.38 (H) 0.52 - 1.25 mg/dL Final 12/17/2021 1.28 (H) 0.52 - 1.25 mg/dL Final Hepatic: AST - [facility] Date Value Ref Range Status 03/22/2022 21 10 - 35 U/L Final AST (SGOT) Date Value Ref Range Status 02/27/2023 49 (H) 15 - 46 U/L Final 02/21/2023 31 15 - 46 U/L Final 02/15/2023 32 15 - 46 U/L Final ALT - [facility] Date Value Ref Range Status 03/22/2022 19 9 - 46 U/L Final ALT Date Value Ref Range Status 02/27/2023 26 0 - 49 U/L Final 02/21/2023 20 0 - 49 U/L Final 02/15/2023 20 0 - 49 U/L Final ALBUMIN - [facility] Date Value Ref Range Status 03/22/2022 4.2 3.6 - 5.1 g/dL Final ALBUMIN Date Value Ref Range Status 02/27/2023 4.2 3.5 - 5.0 g/dL Final 02/21/2023 4.2 3.5 - 5.0 g/dL Final 02/15/2023 4.2 3.5 - 5.0 g/dL Final BILIRUBIN, TOTAL - [facility] Date Value Ref Range Status 03/22/2022 0.9 0.2 - 1.2 mg/dL Final BILIRUBIN, TOTAL Date Value Ref Range Status 02/27/2023 0.6 0.2 - 1.3 mg/dL Final 02/21/2023 0.9 0.2 - 1.3 mg/dL Final 02/15/2023 0.6 0.2 - 1.3 mg/dL Final BILIRUBIN, DIRECT Date Value Ref Range Status 02/27/2023 0.0 0.0 - 0.3 mg/dL Final 02/11/2021 0.0 0.0 - 0.3 mg/dL Final 10/30/2020 0.0 0.0 - 0.3 mg/dL Final ALKALINE PHOSPHATASE Date Value Ref Range Status 02/27/2023 66 38 - 126 U/L Final 02/21/2023 71 38 - 126 U/L Final 02/15/2023 72 38 - 126 U/L Final 03/22/2022 76 35 - 144 U/L Final Current Inpatient Medications Scheduled Meds:acetaminophen, 1,000 mg, Oral, q8h buPROPion XL, 150 mg, Oral, Daily busPIRone, 10 mg, Oral, BID cholestyramine, 1 packet, Oral, BID dicyclomine, 10 mg, Oral, 4x daily enoxaparin, 40 mg, SubCUTAneous, q24h gabapentin, 600 mg, Oral, TID hydrOXYzine pamoate, 25 mg, Oral, BID levothyroxine, 75 mcg, Oral, qAM AC methocarbamol, 750 mg, Oral, 4 times per day pantoprazole (ProtoNix) 40 mg in sodium chloride (PF) 0.9 % 10 mL injection, 40 mg, IntraVENous, BID scopolamine, 1 patch, TransDERmal, q72h sertraline, 50 mg, Oral, Daily sucralfate, 1 g, Oral, 4 times per day Continuous Infusions:lactated Ringer's, 100 mL/hr, Last Rate: 100 mL/hr (03/01/23 0026) PRN Meds:PRN medications: HYDROmorphone, ondansetron ODT OR ondansetron, oxyCODONE OR oxyCODONE, promethazine ASSESSMENT: 57 y.o. male s/p LSG 11/2021 who presented with intractable nausea and vomiting with generalized abdominal pain. UGI on 02/28 was suggestive of peptic ulcer disease. PLAN: - Plan for EGD with Dr. Cabello on 03/02 - Diet: Full Liquids for now - NPO at [place] - Pain and nausea medications PRN - OOBA and encouraged - DVT ppx with SCD's and Lovenox Discussed with Dr. Neves. Fred Maya MD General Surgery PGY-1 Pager [phone] Associated attestation - Brielle Fofana MD - 03/01/2023 10:37 AM EST Patient seen and examined. Agree with resident note. Upper GI images reviewed. Patient states his pain is improved after starting PPI and carafate. Full liquid diet today. NPO at midnight for EGD tomorrow. Informed consent signed and in chart. Brielle Fofana MD documented in this [facility]11-19-2023 Plan of care note* Care Plan - Jennie Worley RN - 03/01/2023 9:26 AM EST Problem: Pain - Adult Goal: Verbalizes/displays adequate comfort level or baseline comfort level Outcome: Progressing Problem: Safety - Adult Goal: Free from fall injury Outcome: Progressing Problem: Chronic Conditions and Co-morbidities Goal: Patient's chronic conditions and co-morbidity symptoms are monitored and maintained or improved Outcome: Progressing Problem: Gastrointestinal - Adult Goal: Minimal or absence of nausea and vomiting Outcome: Progressing [address]19-2023 Plan of care note* Care Plan - Jennie Worley RN - 03/01/2023 9:26 AM EST Problem: Pain - Adult Goal: Verbalizes/displays adequate comfort level or baseline comfort level Outcome: Progressing Problem: Safety - Adult Goal: Free from fall injury Outcome: Progressing Problem: Chronic Conditions and Co-morbidities Goal: Patient's chronic conditions and co-morbidity symptoms are monitored and maintained or improved Outcome: Progressing Problem: Gastrointestinal - Adult Goal: Minimal or absence of nausea and vomiting Outcome: Progressing [place] [id number] Plan of care note* Care Plan - Bertha Francois RN - 03/01/2023 3:28 AM EST Problem: Pain - Adult Goal: Verbalizes/displays adequate comfort level or baseline comfort level Outcome: Progressing Problem: Safety - Adult Goal: Free from fall injury Outcome: Progressing Problem: Chronic Conditions and Co-morbidities Goal: Patient's chronic conditions and co-morbidity symptoms are monitored and maintained or improved Outcome: Progressing Problem: Gastrointestinal - Adult Goal: Minimal or absence of nausea and vomiting Outcome: Progressing [address]19-2023 Nurse Note* Bertha Francois RN - 03/01/2023 1:30 AM EST This patient was asking why he was not getting his tizanidine 2mg that he is normally prescribed athome and also had complaints of muscle spasms. Dr. Maya messaged to see if it could be ordered and robaxin was ordered. [id number] Nurse Note* Bertha Francois RN - 03/01/2023 1:30 AM EST This patient was asking why he was not getting his tizanidine 2mg that he is normally prescribed athome and also had complaints of muscle spasms. Dr. Maya messaged to see if it could be ordered and robaxin was ordered. documented in this [facility]11-17-2023 Emergency department Note* Lyudmila Her RN - 02/27/2023 10:55 PM EST ETA Extended 2300 Lyudmila Her RN 02/27/232254 [place] [id number] Emergency department Note* Lyudmila Her RN - 02/27/2023 10:55 PM EST ETA Extended 2300 Lyudmila Her RN 02/27/232254 * Lyudmila Her RN - 02/27/2023 8:44 PM EST ETA extended 2 hours 2245 Lyudmila Her RN 02/27/232043 * YOU Chery - 02/27/2023 2:31 PM EST [facility] PCU H6 eMERGENCY dEPARTMENT eNCOUnter Pt Name: Sophie Hicks Birthdate 1965 Date of evaluation: 02/27/2023 Provider: YOU CHERY CHIEF COMPLAINT Chief Complaint Patient presents with Abdominal Pain HISTORY OF PRESENT ILLNESS (Location/Symptom, Timing/Onset,Context/Setting, Quality, Duration, Modifying Factors, Severity) Note limiting factors. HPI This patient is seen in conjunction with Dr. Rodriguez who also interviewed and evaluated the patient at bedside. Sophie Hicks is a 57 y.o. male who presents to the emergency department with sudden onset of rightupper quadrant and midepigastric abdominal pain. Patient has been seen on previous occasion for thesame. He had a negative CT scan and was referred to GI but has not yet been able to schedule an appointment. He has been told he needs endoscopy. Patient states he went out to lunch with his today and ate 1 bite of a hamburger and had a sudden onset of severe pain and vomited. Nursing Notes were reviewed. REVIEW OF SYSTEMS (2+ for4; 10+ for level 5) Review of Systems Constitutional: Negative for chills and fever. HENT: Negative for ear pain and sore throat. Eyes: Negative for pain and visual disturbance. Respiratory: Negative for cough and shortness of breath. Cardiovascular: Negative for chest pain and palpitations. Gastrointestinal: Positive for abdominal pain, nausea and vomiting. Genitourinary: Negative for dysuria and hematuria. Musculoskeletal: Negative for arthralgias and back pain. Skin: Negative for color change and rash. Neurological: Negative for seizures and syncope. All other systems reviewed and are negative. PAST MEDICAL HISTORY Past Medical History: Diagnosis Date Abdominal pain Atrial fibrillation (HCC) Back pain Benign essential HTN 01/29/2015 Blood circulation, collateral CAD (coronary artery disease) mild - dx on cath - neg stress Cerebral artery occlusion with cerebral infarction (HCC) Chronic kidney disease COPD (chronic obstructive pulmonary disease) ([facility]) COVID-19 05/03 COVID-19 vaccine series completed 09/25/2020 Moderna COVID-19 vaccine series completed 12/04/2020 BOOSTER CS (cervical spondylosis) 12/25/2004 CERVICAL SPINE DJD Difficulty sleeping Dizziness GERD (gastroesophageal reflux disease) History of colonic polyps 06/21/2013 repeat 2019 Hyperlipidemia Insomnia 08/15/2014 Joint pain, hip Joint pain, knee Memory difficulties Muscle weakness Peripheral polyneuropathy 09/30/2020 Shortness of breath at rest Sleep apnea Snoring SOBOE (shortness of breath on exertion) Type 2 diabetes mellitus (HCC) 03/19/2021 SURGICALHISTORY Past Surgical History: Procedure Laterality Date APPENDECTOMY BARIATRIC SURGERY 12/03/2021 Dr. Trevino CARDIAC CATHETERIZATION 12/17/2013 NORMAL CORONARY ARTERIES AND LVEF. COLONOSCOPY COLONOSCOPY 2020 CYSTOSCOPY 10/26/2020 CYSTOSCOPY 11/19/2020 NECK SURGERY Posterior cervical fusion ROTATOR CUFF REPAIR Bilateral UPPER GASTROINTESTINAL ENDOSCOPY 01/24/2021 Dr. Cabello CURRENT MEDICATIONS Current Discharge Medication List CONTINUE these medications which have NOT CHANGED Details Advair Diskus 250-50 MCG/ACT aerosol powder INHALE 1 PUFF INTO THE LUNGS TWICE DAILY Qty: 1 each, Refills: 10 Associated Diagnoses: Obstructive sleep apnea syndrome ALPRAZolam (Xanax) 1 MG tablet Take 1 mg by mouth every 24 hours as needed. aspirin 81 MG chewable tablet Chew 81 mg daily. aspirin 81 MG EC tablet 81 mg daily. atorvastatin (Lipitor) 80 MG tablet Take 80 mg by mouth daily. B-12 Microlozenge 500 MCG sublingual tablet dissolve 1 tablet under the tongue once daily bacitracin 500 UNIT/GM ointment APPLY TOPICALLY TO AFFECTED AREAS twice a day baclofen (Lioresal) 10 MG tablet Take 10 mg by mouth 2 times daily. bumetanide (Bumex) 1 MG tablet Take 1 mg by mouth in the morning and 1 mg before bedtime. buPROPion XL (Wellbutrin XL) 150 MG 24 hr tablet Take 150 mg by mouth daily. busPIRone (Buspar) 10 MG tablet Take 10 mg by mouth 2 times daily. calcium citrate 250 MG tablet Take 2 tablets (500 mg) by mouth in the morning and 2 tablets (500 mg) at noon and 2 tablets (500 mg) before bedtime. Take 2 tablets by mouth three times daily.. Qty: 180 tablet, Refills: 3 Associated Diagnoses: Deficiency of multiple nutrient elements Continuous Blood Gluc Sensor (ProsperWorksStyle Alexandra 2 Sensor) misc USE DIRECTED; CHANGE SENSOR EVERY 14 DAYS Diclofenac Sodium (Voltaren) 1 % gel apply 2 grams to affected area four times a day dicyclomine (Bentyl) 10 MG capsule Take 10 mg by mouth in the morning and 10 mg at noon and 10 mg in the evening and 10 mg before bedtime. Emollient (Aquaphor Advanced Therapy) ointment ergocalciferol (Vitamin D2) 1.25 MG (84058 UT) capsule take 1 capsule by mouth every week for 8 doses famotidine (Pepcid) 20 MG tablet every 12 hours. fluticasone (Flonase) 50 MCG/ACT nasal spray Every 24 hours. furosemide (Lasix) 40 MG tablet Take 40 mg by mouth daily. gabapentin (Neurontin) 300 MG capsule Take 600 mg by mouth 3 times daily. hydrOXYzine pamoate (Vistaril) 25 MG capsule Take 25 mg by mouth in the morning and 25 mg before bedtime. ibuprofen 600 MG tablet take 1 tablet by mouth three times a day if needed with food or milk for 10days levothyroxine (Synthroid, Levoxyl) 75 MCG tablet methocarbamol (Robaxin) 500 MG tablet Take 1.5 tablets (750 mg) by mouth every 8 hours as needed for muscle spasms for up to 5 days. Qty: 20 tablet, Refills: 0 metOLazone (Zaroxolyn) 2.5 MG tablet mupirocin (Bactroban) 2 % ointment nystatin (Mycostatin) 664409 UNIT/GM powder Apply 1 Application topically 2 times daily. Apply topically to affected area two times daily. Qty: 60 g, Refills: 2 Associated Diagnoses: Yeast dermatitis ondansetron ODT (Zofran-ODT) 4 MG disintegrating tablet oxyCODONE-acetaminophen (Percocet) 5-325 MG tablet Take 1 tablet by mouth 2 times daily. pantoprazole (ProtoNix) 40 MG EC tablet Take 40 mg by mouth daily. PARoxetine (Paxil) 20 MG tablet Take 20 mg by mouth every morning. potassium chloride CR (Klor-Con M20) 20 MEQ ER tablet as needed. promethazine (Phenergan) 12.5 MG tablet Take 12.5 mg by mouth. senna-docusate sodium (Senokot-S) 8.6-50 MG tablet 1-2 tab(s) sertraline (Zoloft) 50 MG tablet Take 50 mg by mouth daily. sildenafil (Revatio) 20 MG tablet take 1-5 tablets BY MOUTH NEEDED sildenafil (Viagra) 100 MG tablet Every 24 hours. tamsulosin (Flomax) 0.4 MG 24 hr capsule Take 0.4 mg by mouth daily. torsemide (Demadex) 20 MG tablet Take 20 mg by mouth daily. traMADol ER (Ultram-ER) 300 MG 24 hr tablet Take 300 mg by mouth 3 times daily. triamcinolone (Kenalog) 0.1 % cream APPLY TO THE AFFECTED AREAS OF LOWER LEGS TWICE DAILY FOR 2 WEEKS... (REFER TO PRESCRIPTION NOTES). Ventolin HFA 108 (90 Base) MCG/ACT inhaler Inhale 2 puffs every 6 hours as needed. zinc gluconate 50 MG tablet Take 50 mg by mouth daily. Iodinated contrast media and Nsaids FAMILY HISTORY Family History Problem Relation Name Age of Onset Osteoarthritis Mother Lung cancer Mother smoker Coronary artery disease Other SOCIAL HISTORY Social History Socioeconomic History Marital status: Tobacco Use Smoking status: Never Smokeless tobacco: Never Substance and Sexual Activity Alcohol use: Never Drug use: No SCREENINGS PHYSICAL EXAM (5+ for level 4, 8+ for level 5) @EDTRIAGEVSS@ Physical Exam Vitals and nursing note reviewed. Constitutional: General: He is not in acute distress. Appearance: He is well-developed. HENT: Head: Normocephalic and atraumatic. Eyes: Conjunctiva/sclera: Conjunctivae normal. Cardiovascular: Rate and Rhythm: Normal rate and regular rhythm. Heart sounds: No murmur heard. Pulmonary: Effort: Pulmonary effort is normal. No respiratory distress. Breath sounds: Normal breath sounds. Abdominal: Palpations: Abdomen is soft. Comments: Abdomen is soft, nondistended, with tenderness in the midepigastrium. No rebound tenderness or guarding. No organomegaly or abnormal masses palpated. Bowel sounds active. Musculoskeletal: General: No swelling. Skin: General: Skin is warm and dry. Neurological: Mental Status: He is alert and oriented to person, place, and time. Psychiatric: Mood and Affect: Mood normal. Behavior: Behavior normal. DIAGNOSTIC RESULTS EKG (Per Emergency Physician): RADIOLOGY (Per EmergencyPhysician): Interpretation per the Radiologist below, if available at the time of this note: @EDRISRSLT@ : Labs Reviewed CBC WITH AUTO DIFFERENTIAL - Abnormal Result Value Auto WBC 7.3 RBC 4.77 Hemoglobin 13.7 Hematocrit 40.7 MCV 85.4 MCH 28.7 MCHC 33.7 RDW 14.2 Platelets 118 (*) MPV 6.6 (*) nRBC 0.0 Neutrophils Relative 71.9 Lymphocytes Relative 19.3 (*) Monocytes Relative 6.3 Eosinophils Relative 2.1 Basophils Relative 0.4 Neutrophils Absolute 5.2 Lymphocytes Absolute 1.4 Monocytes Absolute 0.5 Eosinophils Absolute 0.2 Basophils Absolute 0.0 BASIC METABOLIC PANEL - Abnormal SODIUM 139 POTASSIUM 3.9 CHLORIDE 107 CARBON DIOXIDE 24 UREA NITROGEN 13 CREATININE 1.06 GLUCOSE 101 (*) CALCIUM 8.6 ANION GAP 9 eGFR 80.8 HEPATIC FUNCTION PANEL - Abnormal BILIRUBIN, TOTAL 0.6 BILIRUBIN, DIRECT 0.0 ALKALINE PHOSPHATASE 66 AST (SGOT) 49 (*) ALT 26 ALBUMIN 4.2 TOTAL PROTEIN 7.2 CBC WITH AUTO DIFFERENTIAL - Abnormal Auto WBC 5.7 RBC 4.71 Hemoglobin 13.6 Hematocrit 41.0 MCV 87.1 MCH 28.8 MCHC 33.1 RDW 13.9 Platelets 103 (*) MPV 6.5 (*) nRBC 0.1 Neutrophils Relative 64.2 Lymphocytes Relative 24.6 Monocytes Relative 7.7 Eosinophils Relative 2.8 Basophils Relative 0.7 Neutrophils Absolute 3.7 Lymphocytes Absolute 1.4 Monocytes Absolute 0.4 Eosinophils Absolute 0.2 Basophils Absolute 0.0 BASIC METABOLIC PANEL - Abnormal SODIUM 139 POTASSIUM 4.1 CHLORIDE 106 CARBON DIOXIDE 25 UREA NITROGEN 14 CREATININE 1.09 GLUCOSE 101 (*) CALCIUM 8.8 ANION GAP 8 eGFR 78.2 CBC WITH AUTO DIFFERENTIAL - Abnormal Auto WBC 5.7 RBC 4.72 Hemoglobin 13.6 Hematocrit 41.0 MCV 86.8 MCH 28.8 MCHC 33.1 RDW 13.6 Platelets 89 (*) MPV 6.1 (*) nRBC 0.0 Neutrophils Relative 59.8 Lymphocytes Relative 26.8 Monocytes Relative 9.1 Eosinophils Relative 3.7 Basophils Relative 0.6 Neutrophils Absolute 3.4 Lymphocytes Absolute 1.5 Monocytes Absolute 0.5 Eosinophils Absolute 0.2 Basophils Absolute 0.0 THYROID STIMULATING HORMONE - Abnormal THYROID STIMULATING HORMONE 7.294 (*) BASIC METABOLIC PANEL - Abnormal SODIUM 137 POTASSIUM 4.1 CHLORIDE 104 CARBON DIOXIDE 26 UREA NITROGEN 13 CREATININE 1.07 GLUCOSE 121 (*) CALCIUM 8.5 ANION GAP 7 eGFR 79.9 CBC WITH AUTO DIFFERENTIAL - Abnormal Auto WBC 6.2 RBC 4.79 Hemoglobin 14.0 Hematocrit 41.6 MCV 86.9 MCH 29.3 MCHC 33.7 RDW 13.7 Platelets 90 (*) MPV 5.9 (*) nRBC 0.0 Neutrophils Relative 59.2 Lymphocytes Relative 28.6 Monocytes Relative 8.3 Eosinophils Relative 3.1 Basophils Relative 0.8 Neutrophils Absolute 3.7 Lymphocytes Absolute 1.8 Monocytes Absolute 0.5 Eosinophils Absolute 0.2 Basophils Absolute 0.1 GASTROINTESTINAL PCR PANEL - Normal Campylobacter Not Detected Plesiomonas shigelloides Not Detected Salmonella Not Detected Vibrio species Not Detected Vibrio cholerae Not Detected Yersinia enterocolitica Not Detected Enterotoxigenic E coli (ETEC) Not Detected Shiga toxin-producing E coli (STEC) Not Detected Shigella/Enteroinvasive E coli (EIEC) Not Detected Cryptosporidium Not Detected Cyclospora cayetanensis Not Detected Entamoeba histolytica Not Detected Giardia lamblia Not Detected Adenovirus F 40/41 Not Detected Astrovirus Not Detected Norovirus GI/GII Not Detected Rotavirus A Not Detected Sapovirus Not Detected Narrative: Methodology: Multiplex PCR LIPASE - Normal LIPASE 77 FERRITIN - Normal FERRITIN 21 IRON - Normal IRON, TOTAL 84 FOLATE - Normal FOLATE 11.2 VITAMIN D DEFICIENCY SCREENING (VIT D 25) - Normal VIT D 25-OH, TOTAL 36 Narrative: Therapy is based on measurement of Total 25-OHD with the following classification levels: Less than 20 ng/mL: Indicative of Vit D deficiency 20-30 ng/mL: Suggests Vit D insufficiency Optimal: Greater than or equal to 30 ng/mL Test performed by [email or web address] Competitive Immunoassay, measuring Total Vitamin D, not individual fractions. VITAMIN B12 - Normal VITAMIN B12 315 T3 FREE - Normal T3, FREE 4.62 FREE T4 - Normal FREE T4 1.19 PROTHROMBIN TIME - Normal PROTHROMBIN TIME 11.4 INR 1.1 BASIC METABOLIC PANEL - Normal SODIUM 136 POTASSIUM 4.0 CHLORIDE 102 CARBON DIOXIDE 24 UREA NITROGEN 12 CREATININE 1.10 GLUCOSE 85 CALCIUM 8.8 ANION GAP 10 eGFR 77.3 POCT GLUCOSE METER UNSOLICITED RESULTS - Normal Glucose 94 Narrative: Performed by: [facility], [address] [place] [address] CLIA ID: [id number] POCT GLUCOSE METER - Normal Glucose Blood, POC 94 BASIC METABOLIC PANEL WITH MG REFLEX Narrative: The following orders were created for panel order Basic Metabolic Panel w/ Mg Reflex. Procedure Abnormality Status --------- ------ Basic metabolic panel[[id number]] Abnormal Final result Please view results for these tests on the individual orders. BASIC METABOLIC PANEL WITH MG REFLEX Narrative: The following orders were created for panel order Basic Metabolic Panel w/ Mg Reflex. Procedure Abnormality Status --------- ------ Basic metabolic panel[[id number]] Abnormal Final result Please view results for these tests on the individual orders. BASIC METABOLIC PANEL WITH MG REFLEX Narrative: The following orders were created for panel order Basic Metabolic Panel w/ Mg Reflex. Procedure Abnormality Status --------- ------ Basic metabolic panel[[id number]] Normal Final result Please view results for these tests on the individual orders. VITAMIN E (TOCOPHEROL) ZINC COPPER, SERUM SELENIUM SERUM VITAMIN A All other labs were within normal range or not returned as of this dictation. EMERGENCY DEPARTMENT COURSE and DIFFERENTIALDIAGNOSIS/MDM: Vitals: Vitals: 03/01/23200203/01/23211703/02/230 03/02/23520 BP: (!) 127/92 (!) 147/81 (!) 141/82 BP Location: Left arm Left arm Left arm Patient Position: Lying Lying Lying Pulse: 65 61 75 Resp: (!) 90 16 18 18 Temp: (!) 35.6 C (96 F) (!) 35.8 C (96.4 F) 36.9 C (98.4 F) TempSrc: Temporal Temporal Temporal SpO2: 95% 98% 97% Weight: Height: Medications buPROPion XL (Wellbutrin XL) 24 hr tablet 150 mg (150 mg Oral Given 03/02/23838) busPIRone (Buspar) tablet 10 mg (10 mg Oral Given 03/02/23838) dicyclomine (Bentyl) capsule 10 mg (10 mg Oral Given 03/02/23838) gabapentin (Neurontin) capsule 600 mg (600 mg Oral Given 03/02/23839) hydrOXYzine pamoate (Vistaril) capsule 25 mg (25 mg Oral Given 03/02/23839) sertraline (Zoloft) tablet 50 mg (50 mg Oral Given 03/02/23839) levothyroxine (Synthroid, Levoxyl) tablet 75 mcg (75 mcg Oral Given 11/20/23 0525) enoxaparin (Lovenox) syringe 40 mg (40 mg SubCUTAneous Given 03/02/23 0839) lactated Ringer's (LR) infusion (100 mL/hr IntraVENous New Bag 03/02/23522) ondansetron ODT (Zofran-ODT) disintegrating tablet 4 mg ( Oral See Alternative 03/02/23631) Or ondansetron (Zofran) injection 4 mg (4 mg IntraVENous Given 03/02/23631) oxyCODONE (Roxicodone) immediate release tablet 5 mg ( Oral See Alternative 03/02/23522) Or oxyCODONE (Roxicodone) immediate release tablet 10 mg (10 mg Oral Given 03/02/23522) HYDROmorphone (Dilaudid) injection 0.5 mg (0.5 mg IntraVENous Given 03/02/23631) acetaminophen (Tylenol) tablet 1,000 mg (1,000 mg Oral Not Given 03/02/23 0415) promethazine (Phenergan) injection 6.25 mg (has no administration in time range) scopolamine (Transderm-Scop) patch 1 patch (1 patch TransDERmal Medication Applied 02/28/23 0458) pantoprazole (ProtoNix) 40 mg in sodium chloride (PF) 0.9 % 10 mL injection (40 mg IntraVENous Given 03/02/23 0840) cholestyramine (Questran) packet 4 g (4 g Oral Given 03/02/23 0837) sucralfate (Carafate) tablet 1 g (1 g Oral Given 03/02/23 06) methocarbamol (Robaxin) tablet 750 mg (750 mg Oral Given 03/02/23522) polyethylene glycol (PEG) 3350 (Miralax) packet 17 g (17 g Oral Not Given 03/02/23 09) senna-docusate sodium (Senokot-S) 8.6-50 MG tablet 2 tablet (2 tablets Oral Given 03/01/23 1108) Lidocaine 4 % patch 1 patch (1 patch TransDERmal Not Given 03/02/23 09) HYDROmorphone (Dilaudid) injection 1 mg (1 mg IntraVENous Given 02/27/23 1521) ondansetron (Zofran) injection 4 mg (4 mg IntraVENous Given 02/27/23 1522) pantoprazole (ProtoNix) 40 mg in sodium chloride (PF) 0.9 % 10 mL injection (40 mg IntraVENous Given 02/27/23 1616) aluminum & magnesium hydroxide-simethicone (Mylanta) 200-200-20 MG/5ML oral suspension 10 mL (10 mL Oral Given 02/27/23 1615) HYDROmorphone (Dilaudid) injection 1 mg (1 mg IntraVENous Given 02/27/23 1616) metoclopramide (Reglan) injection 10 mg (10 mg IntraVENous Given 02/27/23 1617) HYDROmorphone (Dilaudid) injection 1 mg (1 mg IntraVENous Given 02/27/23 1848) HYDROmorphone (Dilaudid) injection 0.5 mg (0.5 mg IntraVENous Given 02/27/23 2219) diatrizoate meglumine-sodium (Gastrografin) 66-10 % solution 30 mL (30 mL Oral Given 02/28/23 0915) Medical Decision Making Problems Addressed: Abdominal pain, epigastric: complicated acute illness or injury Amount and/or Complexity of Data Reviewed Labs: ordered. Radiology: ordered. Risk OTC drugs. Prescription drug management. Decision regarding hospitalization. Patient presents to the emergency department complaining of recurrent midepigastric and upper abdominal pain. Symptoms started after starting to eat a hamburger today. He has been seen for this in the past and had negative work- ups. He has been referred to gastroenterology but has not yet been ableto schedule an appointment. He has been told he likely needs endoscopy. Differential diagnosis gastritis, PUD, GERD, gastroenteritis, cholelithiasis, cholecystitis, pancreatitis Chronic conditions impacting care: History of gastric bypass surgery, CAD, GERD, Social determinants affecting health: None ED diagnostics included a CBC with a white count of 7.3 and 71% neutrophils. Hemoglobin 13.7. BMP is a sodium of 139 and potassium 3.9. Glucose 101. Hepatic function panel showed an SGOT of 49 and ALT of 26. Serum lipase of 77. An ultrasound of the gallbladder, per radiologist review, showed coarseechogenic liver suggesting hepatic steatosis or other hepatocellular disease. No evidence of a liver mass. This patient disposition was determined by Dr. Rodriguez. He did discuss this case with Dr. Neves and it was agreed patient would be transferred ED to ED for general surgery evaluation and possible admission. CONSULTS: None PROCEDURES: Unless otherwise noted below, none Procedures Patients symptoms are consistent with sepsis, severe sepsis, or septic shock (If yes use .sepsiscoremeasure): No FINAL IMPRESSION 1. Abdominal pain, epigastric DISPOSITION/PLAN DISPOSITION Admit 02/28/2023 03:01:37 AM PATIENT REFERRED TO: No follow-up provider specified. DISCHARGE MEDICATIONS: Current Discharge Medication List @[facility]([id number]:LAST:1)@ (Please note: Portions of this note were completed with a voice recognition program. Efforts were made to edit thedictations but occasionally words and phrases are mis-transcribed.) Form [id number] YOU CHERY (electronically signed) Emergency Medicine Provider YOU Chery 03/02/23 0907 * Sinan Rodriguez MD - 02/27/2023 2:31 PM EST Emergency Department Encounter [facility] ED Patient: Sophie Hicks : 1965 Date of Evaluation: 02/27/2023 ED Supervising Physician: Sinan Rodriguez MD I independently examined and evaluated Sophie Hicks. This will serve as my Supervisory note as the filterer of record and shared attestation. Idid perform a substantive portion of the visit including all aspects of the Medical Decision Making. I wore appropriate PPE for the entirety of this encounter. In brief, Sophie Hicks is a 57 y.o. male that presents to the emergency department with concern for right upper quadrant abdominal pain and midepigastric pain. He has been having the symptoms for atleast the past 2 weeks. Has been seen several times in the emergency department for similar most recently was seen on the of this past monthAnd at that time provider had discussed with general surgery who recommended that he follow-up in the outpatient setting. He notes that he has been tryingto obtain a EGD as per surgery recommendations although has not been successful in this. Telephone e ncounters from his surgeons office note that they have been having a hard time reaching him as wellwhich might be an issue. He has had bariatric surgery a year and a half ago. He endorses been taking all the medications that he supposed to but still cannot eat or drink much and currently has been using liquid protein shakes for nutrition although still hurts when he drinks some Focused exam: Patient appears uncomfortable has tenderness diffusely and through his entire abdomen. Brief ED course/MDM: EMERGENCY DEPARTMENT COURSE and DIFFERENTIAL DIAGNOSIS/MDM: Vitals: Vitals: 02/27/23 1432 02/27/23 1434 BP: 102/81 Pulse: 79 Resp: 18 Temp: 37.3 C (99.1 F) TempSrc: Temporal SpO2: 98% Weight: 125 kg (275 lb) The patient presented with a chief complaint of nausea, vomiting, abdominal pain. The differential diagnosis associated with this patient's presentation includes marginal ulcer, complication of bariatric surgery, gallbladder pathology, gastroenteritis, GERD gastritis. Our workup consisted of ordering/reviewing patient has had CT scans done as recently as last week and when he was seen previously they recommended against this. We will withhold CT scan at this pointin time as his blood work otherwise looks very reassuring does not have any significant electrolytederangements normal LFTs negative lipase and normal CBC. We will do an right upper quadrant ultrasound and see if he has symptom relief with medications. May need to discuss with his bariatric surgeon about next steps as he has been seen several times for same symptoms and has not had an EGD done to diagnosis symptoms. Ultrasound showedEchogenic liver suggesting hepatic steatosis or hepatocellular disease. No liver masses noted did discuss with Dr. Neves of bariatric surgery who recommended ED to ED transfer for general surgery evaluation possible admission Diagnoses as of 02/27/23 1839 Abdominal pain, epigastric Diagnostic tests considered but not performed: External records reviewed: Diagnostics interpreted by me: Discussions with other clinicians: Chronic conditions impacting care: Social determinants of health affecting care: ED Medications managed: Medications HYDROmorphone (Dilaudid) injection 1 mg (1 mg IntraVENous Given 02/27/23 1521) ondansetron (Zofran) injection 4 mg (4 mg IntraVENous Given 02/27/23 1522) pantoprazole (ProtoNix) 40 mg in sodium chloride (PF) 0.9 % 10 mL injection (40 mg IntraVENous Given 02/27/23 1616) aluminum & magnesium hydroxide-simethicone (Mylanta) 200-200-20 MG/5ML oral suspension 10 mL (10 mL Oral Given 02/27/23 1615) HYDROmorphone (Dilaudid) injection 1 mg (1 mg IntraVENous Given 02/27/23 1616) metoclopramide (Reglan) injection 10 mg (10 mg IntraVENous Given 02/27/23 1617) Prescription drugs considered: Disposition and plan: Epigastric abdominal pain, transfer All diagnostic, treatment, and disposition decisions were made by myself in conjunction with the Resident/CODI. I also supervised plaza portions of any procedures performed by the Resident/CODI. For all further details of the patient's emergency department visit, please see their documentation. (Comment: Please note this report has been produced using speech recognition software and may contain errors related to that system including errors in grammar, punctuation, and spelling, as well as words and phrases that may be inappropriate. If there are any questions or concerns please feel freeto contact the dictating provider for clarification.) Sinan Rodriguez MD Acute [facility] Sinan Rodriguez MD 02/27/23 1839 * Chhaya Hanson PA-C - 02/27/2023 2:31 PM EST EMERGENCY DEPARTMENT ENCOUNTER Pt Name: Sophie Hicks Birthdate 1965 Date of evaluation: 02/27/2023 ED Provider: Chhaya Hanson PA-C CHIEF COMPLAINT Chief Complaint Patient presents with Abdominal Pain HISTORY OF PRESENT ILLNESS (Location/Symptom, Timing/Onset, Context/Setting, Quality, Duration, Modifying Factors, Severity) Note limiting factors. I wore appropriate PPE for the entirety of this encounter. HPI Sophie Hicks is a 57 y.o. male who presents to the emergency department for evaluation of abdominal pain in the right upper and mid epigastric area. Patient was seen over at [facility], and sent over here for further evaluation and management. Patient states is been an ongoing problem for the past few months, and this is happened previously. States he had a negative CT scan earlier this month, and was referred to GI, but has not been able to schedule anything with them yet. He was toldthat he would need an endoscopy. States that he went out to lunch with his today, ate 1 singlebite of a hamburger, and has since had a sudden, onset of severe pain and had nausea and vomiting. States that he then went to [facility] for further evaluation, and after their work-up they discussed with Dr. Neves who said patient should be transferred to [facility] for further evaluation by surgery residents and for possible admission. Nursing Notes were reviewed. Limitations to history: None Outside historians: None REVIEW OF SYSTEMS Review of Systems Constitutional: Negative for chills and fever. HENT: Negative for ear pain and sore throat. Eyes: Negative for pain and visual disturbance. Respiratory: Negative for cough and shortness of breath. Cardiovascular: Negative for chest pain and palpitations. Gastrointestinal: Positive for abdominal pain, nausea and vomiting. Endocrine: Negative. Genitourinary: Negative for dysuria and hematuria. Musculoskeletal: Negative for arthralgias and back pain. Skin: Negative for color change and rash. Allergic/Immunologic: Negative. Neurological: Negative for seizures and syncope. Hematological: Negative. Psychiatric/Behavioral: Negative. All other systems reviewed and are negative. 14 systems reviewed, positives and pertinent negatives as per HPI. All other systems were reviewed and are negative. PAST MEDICAL HISTORY Past Medical History: Diagnosis Date Abdominal pain Atrial fibrillation (HCC) Back pain Benign essential HTN 01/29/2015 Blood circulation, collateral CAD (coronary artery disease) mild - dx on cath - neg stress Cerebral artery occlusion with cerebral infarction (HCC) Chronic kidney disease COPD (chronic obstructive pulmonary disease) ([facility]) COVID-19 05/03 COVID-19 vaccine series completed 09/25/2020 Moderna COVID-19 vaccine series completed 12/04/2020 BOOSTER CS (cervical spondylosis) 12/25/2004 CERVICAL SPINE DJD Difficulty sleeping Dizziness GERD (gastroesophageal reflux disease) History of colonic polyps 06/21/2013 repeat 2019 Hyperlipidemia Insomnia 08/15/2014 Joint pain, hip Joint pain, knee Memory difficulties Muscle weakness Peripheral polyneuropathy 09/30/2020 Shortness of breath at rest Sleep apnea Snoring SOBOE (shortness of breath on exertion) Type 2 diabetes mellitus (HCC) 03/19/2021 SURGICAL HISTORY Past Surgical History: Procedure Laterality Date APPENDECTOMY BARIATRIC SURGERY 12/03/2021 Dr. Trevino CARDIAC CATHETERIZATION 12/17/2013 NORMAL CORONARY ARTERIES AND LVEF. COLONOSCOPY COLONOSCOPY 2020 CYSTOSCOPY 10/26/2020 CYSTOSCOPY 11/19/2020 NECK SURGERY Posterior cervical fusion ROTATOR CUFF REPAIR Bilateral UPPER GASTROINTESTINAL ENDOSCOPY 01/24/2021 Dr. Cabello CURRENT MEDICATIONS Previous Medications ADVAIR DISKUS 250-50 MCG/ACT AEROSOL POWDER INHALE 1 PUFF INTO THE LUNGS TWICE DAILY ALPRAZOLAM (XANAX) 1 MG TABLET Take 1 mg by mouth every 24 hours as needed. ASPIRIN 81 MG CHEWABLE TABLET Chew 81 mg daily. ASPIRIN 81 MG EC TABLET 81 mg daily. ATORVASTATIN (LIPITOR) 80 MG TABLET Take 80 mg by mouth daily. B-12 MICROLOZENGE 500 MCG SUBLINGUAL TABLET dissolve 1 tablet under the tongue once daily BACITRACIN 500 UNIT/GM OINTMENT APPLY TOPICALLY TO AFFECTED AREAS twice a day BACLOFEN (LIORESAL) 10 MG TABLET Take 10 mg by mouth. BUMETANIDE (BUMEX) 1 MG TABLET Take 1 mg by mouth in the morning and 1 mg before bedtime. BUPROPION XL (WELLBUTRIN XL) 150 MG 24 HR TABLET Take 150 mg by mouth daily. BUSPIRONE (BUSPAR) 10 MG TABLET Take 10 mg by mouth 2 times daily. CALCIUM CITRATE 250 MG TABLET Take 2 tablets (500 mg) by mouth in the morning and 2 tablets (500 mg) at noon and 2 tablets (500 mg) before bedtime. Take 2 tablets by mouth three times daily.. CONTINUOUS BLOOD GLUC SENSOR (FREESTYLE ALEXANDRA 2 SENSOR) [facility] USE DIRECTED; CHANGE SENSOR EVERY 14 DAYS CYCLOPHOSPHAMIDE (CYTOXAN) 50 MG CAPSULE 150 mg. DICLOFENAC SODIUM (VOLTAREN) 1 % GEL apply 2 grams to affected area four times a day DICYCLOMINE (BENTYL) 10 MG CAPSULE Take 10 mg by mouth in the morning and 10 mg at noon and 10 mg in the evening and 10 mg before bedtime. EMOLLIENT (AQUAPHOR ADVANCED THERAPY) OINTMENT ERGOCALCIFEROL (VITAMIN D2) 1.25 MG (70380 UT) CAPSULE take 1 capsule by mouth every week for 8 doses FAMOTIDINE (PEPCID) 20 MG TABLET every 12 hours. FLUTICASONE (FLONASE) 50 MCG/ACT NASAL SPRAY Every 24 hours. FUROSEMIDE (LASIX) 40 MG TABLET Take 40 mg by mouth in the morning and 40 mg before bedtime. GABAPENTIN (NEURONTIN) 300 MG CAPSULE Take 600 mg by mouth 3 times daily. HYDROXYZINE PAMOATE (VISTARIL) 25 MG CAPSULE Take 25 mg by mouth in the morning and 25 mg before bedtime. IBUPROFEN 600 MG TABLET take 1 tablet by mouth three times a day if needed with food or milk for 10days LEVOTHYROXINE (SYNTHROID, LEVOXYL) 75 MCG TABLET METHOCARBAMOL (ROBAXIN) 500 MG TABLET Take 1.5 tablets (750 mg) by mouth every 8 hours as needed for muscle spasms for up to 5 days. METOLAZONE (ZAROXOLYN) 2.5 MG TABLET MUPIROCIN (BACTROBAN) 2 % OINTMENT NYSTATIN (MYCOSTATIN) 616089 UNIT/GM POWDER Apply 1 Application topically 2 times daily. Apply topically to affected area two times daily. ONDANSETRON ODT (ZOFRAN-ODT) 4 MG DISINTEGRATING TABLET OXYCODONE-ACETAMINOPHEN (PERCOCET) 5-325 MG TABLET Take 1 tablet by mouth 2 times daily. PANTOPRAZOLE (PROTONIX) 40 MG EC TABLET Take 40 mg by mouth daily. PAROXETINE (PAXIL) 20 MG TABLET Take 20 mg by mouth every morning. POTASSIUM CHLORIDE CR (KLOR-CON M20) 20 MEQ ER TABLET as needed. PREGABALIN (LYRICA) 150 MG CAPSULE Take 150 mg by mouth in the morning and 150 mg before bedtime. PROMETHAZINE (PHENERGAN) 12.5 MG TABLET Take 12.5 mg by mouth. SENNA-DOCUSATE SODIUM (SENOKOT-S) 8.6-50 MG TABLET 1-2 tab(s) SERTRALINE (ZOLOFT) 50 MG TABLET Take 50 mg by mouth daily. SILDENAFIL (REVATIO) 20 MG TABLET take 1-5 tablets BY MOUTH NEEDED SILDENAFIL (VIAGRA) 100 MG TABLET Every 24 hours. SUCRALFATE (CARAFATE) 1 GM/10ML SUSPENSION Take 10 mL (1 g) by mouth 3 times daily for 14 days. TAMSULOSIN (FLOMAX) 0.4 MG 24 HR CAPSULE Take 0.4 mg by mouth daily. TORSEMIDE (DEMADEX) 20 MG TABLET 20 mg. TRAMADOL ER (ULTRAM-ER) 300 MG 24 HR TABLET take 0.5 tablet by mouth twice a day TRIAMCINOLONE (KENALOG) 0.1 % CREAM APPLY TO THE AFFECTED AREAS OF LOWER LEGS TWICE DAILY FOR 2 WEEKS... (REFER TO PRESCRIPTION NOTES). VENTOLIN HFA 108 (90 BASE) MCG/ACT INHALER Inhale 2 puffs every 6 hours as needed. ZINC GLUCONATE 50 MG TABLET Take 50 mg by mouth daily. ALLERGIES Iodinated contrast media and Nsaids FAMILY HISTORY Family History Problem Relation Name Age of Onset Osteoarthritis Mother Lung cancer Mother smoker Coronary artery disease Other SOCIAL HISTORY Social History Socioeconomic History Marital status: Tobacco Use Smoking status: Never Smokeless tobacco: Never Substance and Sexual Activity Alcohol use: Never Drug use: No SCREENINGS PHYSICAL EXAM ED Triage Vitals [02/27/23 1434] Temp Heart Rate Resp BP 37.3 C (99.1 F) 79 18 102/81 SpO2 Temp Source Heart Rate Source Patient Position 98 % Temporal Monitor -- BP Location FiO2 (%) -- -- Physical Exam Vitals and nursing note reviewed. Constitutional: General: He is not in acute distress. Appearance: He is well-developed. HENT: Head: Normocephalic and atraumatic. Eyes: Conjunctiva/sclera: Conjunctivae normal. Cardiovascular: Rate and Rhythm: Normal rate and regular rhythm. Heart sounds: Normal heart sounds. No murmur heard. Pulmonary: Effort: Pulmonary effort is normal. No respiratory distress. Breath sounds: Normal breath sounds. Abdominal: Palpations: Abdomen is soft. Tenderness: There is abdominal tenderness in the right upper quadrant, epigastric area and left upper quadrant. Comments: Patient's abdomen is protuberant, but soft. There is noted right upper, epigastric and left upper quadrant abdominal pain. No significant guarding rigidity, or signs of peritonitis. Musculoskeletal: General: No swelling. Cervical back: Neck supple. Skin: General: Skin is warm and dry. Capillary Refill: Capillary refill takes less than 2 seconds. Neurological: General: No focal deficit present. Mental Status: He is alert and oriented to person, place, and time. Psychiatric: Mood and Affect: Mood normal. DIAGNOSTIC RESULTS RADIOLOGY (Per Emergency Physician): Interpretation per the Radiologist below, if available at the time of this note: US abdomen limited Final Result 1. Coarse, echogenic liver suggesting hepatic steatosis or other hepatocellular disease. No sonographic evidence of a liver mass. 2. No acute process. Report Dictated on Electronically Signed By: Ramón Izaguirre MD Electronically Signed Date/Time: 02/27/2023 5:01 PM EST LABS: Labs Reviewed CBC WITH AUTO DIFFERENTIAL - Abnormal Result Value Auto WBC 7.3 RBC 4.77 Hemoglobin 13.7 Hematocrit 40.7 MCV 85.4 MCH 28.7 MCHC 33.7 RDW 14.2 Platelets 118 (*) MPV 6.6 (*) nRBC 0.0 Neutrophils Relative 71.9 Lymphocytes Relative 19.3 (*) Monocytes Relative 6.3 Eosinophils Relative 2.1 Basophils Relative 0.4 Neutrophils Absolute 5.2 Lymphocytes Absolute 1.4 Monocytes Absolute 0.5 Eosinophils Absolute 0.2 Basophils Absolute 0.0 BASIC METABOLIC PANEL - Abnormal SODIUM 139 POTASSIUM 3.9 CHLORIDE 107 CARBON DIOXIDE 24 UREA NITROGEN 13 CREATININE 1.06 GLUCOSE 101 (*) CALCIUM 8.6 ANION GAP 9 eGFR 80.8 HEPATIC FUNCTION PANEL - Abnormal BILIRUBIN, TOTAL 0.6 BILIRUBIN, DIRECT 0.0 ALKALINE PHOSPHATASE 66 AST (SGOT) 49 (*) ALT 26 ALBUMIN 4.2 TOTAL PROTEIN 7.2 LIPASE - Normal LIPASE 77 POCT GLUCOSE METER UNSOLICITED RESULTS - Normal Glucose 94 Narrative: Performed by: Padmini Campbell [facility], [address] [place] [address] CLIA ID: [id number] POCT GLUCOSE METER - Normal Glucose Blood, POC 94 All other labs were within normal range or not returned as of this dictation. EMERGENCY DEPARTMENT COURSE and DIFFERENTIAL DIAGNOSIS/MDM: Vitals: Vitals: 02/27/23 1434 02/27/23 1852 02/27/23 2200 02/28/23 0128 BP: 102/81 133/65 134/70 104/88 Pulse: 79 61 64 Resp: 18 18 16 Temp: 37.3 C (99.1 F) 37.1 C (98.7 F) TempSrc: Temporal Oral SpO2: 98% 98% 98% Weight: Medications HYDROmorphone (Dilaudid) injection 1 mg (1 mg IntraVENous Given 02/27/23 1521) ondansetron (Zofran) injection 4 mg (4 mg IntraVENous Given 02/27/23 1522) pantoprazole (ProtoNix) 40 mg in sodium chloride (PF) 0.9 % 10 mL injection (40 mg IntraVENous Given 02/27/23 1616) aluminum & magnesium hydroxide-simethicone (Mylanta) 200-200-20 MG/5ML oral suspension 10 mL (10 mL Oral Given 02/27/23 1615) HYDROmorphone (Dilaudid) injection 1 mg (1 mg IntraVENous Given 02/27/23 1616) metoclopramide (Reglan) injection 10 mg (10 mg IntraVENous Given 02/27/23 1617) HYDROmorphone (Dilaudid) injection 1 mg (1 mg IntraVENous Given 02/27/23 1848) HYDROmorphone (Dilaudid) injection 0.5 mg (0.5 mg IntraVENous Given 02/27/23 2219) ED care was supervised by Dr. Rodriguez who independently examined and evaluated the patient. Please see their attestation note for further details. In brief, Sophie Hicks is a 57 y.o. male who presented to the emergency department presenting to the ER for further evaluation of abdominal pain sent over from [place] for further evaluation and management by general surgery. Patient has been having this intermittent epigastric/right upper quadrant/left lower quadrant abdominal pain for the past few months, she states that today when asked to eat, had 1 bite of food and had immediate pain and nausea and vomiting, and presented to the ER secondary to this. Nursing notes and medical records reviewed, vital signs reviewed and within normal limits on arrival. Differential considerations included-peptic ulcer disease, gastritis, biliary abnormalities, liver abnormalities, pancreatitis, gastric bypass abnormality Initial medical management includes patient was given pain control in the form of Dilaudid at department in hospital, Zofran, Protonix, Mylanta as well as Reglan. Other medications considered other antiemetics. Initial workup includes [id number] glucose BMP hepatic function panel lipase CBC ultrasound of the abdomen Other workup considerations included-consider the need for CT abdomen pelvis, but patient had a CT scan done on 02-15-2023. Upon reassessment patient still well-appearing no acute distress. Lab workup results CBC shows no significant leukocytosis, hemoglobin hematocrit are stable platelets 112. BMP shows glucose 101 with no other significant derangement. Hepatic function panel shows ASTof 49, lipase 77 Imaging results per radiology ultrasound of the abdomen limited-1. Coarse, echogenic liver suggesting hepatic steatosis or other hepatocellular disease. No sonographic evidence of a liver mass. 2. No acute process. Chronic conditions contributing to patients presentation include-history of bariatric surgery, history of this epigastric abdominal pain times a few months. Critical care none I have low suspiscion for (effectively ruled ddx out via) at this time for any significant biliary disease, liver masses, transaminitis, significant lecture light abnormalities, elevated white count concerning for possible infection. Social determinants to care: lack of insurance/PCP, homelessness, health literacy none Consulted once patient arrived to [facility] I did reevaluate the patient, he does have this epigastric/right upper and left upper quadrant abdominal pain, did consult with general surgery who came down evaluated the patient. They are going to admit the patient for further work-up and management secondary to his symptomology. Diagnosis (mild, severe, acute, chronic, stable, unstable) abdominal pain epigastric in nature. Disposition patient be admitted for further evaluation and management to general surgery. I Chhaya Hanson PA-C am the filterer of record. PROCEDURES: Unless otherwise noted below, none Procedures FINAL IMPRESSION 1. Abdominal pain, epigastric DISPOSITION Admit 02/28/2023 03:01:37 AM PATIENT REFERRED TO: No follow-up provider specified. DISCHARGE MEDICATIONS: New Prescriptions No medications on file (Comment: Please note this report has been produced using speech recognition software and may contain errors related to that system including errors in grammar, punctuation, and spelling, as well as words and phrases that may be inappropriate. If there are any questions or concerns please feel freeto contact the dictating provider for clarification.) Chhaya Hanson PA-C (electronically signed) Emergency Medicine Provider Chhaya Hanson PA-C 02/28/23 0334 * Marsha Zaragoza RN - 02/27/2023 2:31 PM EST Pt co abdominal pain with nausea and vomiting x a few weeks. Pt talked to doctor and is waiting anastacia endoscopy. * Nicolás Easley RN - 02/27/2023 2:31 PM EST 2315- ambulance crew @ bedside for transport. Report given Nicolás Easley RN 02/27/232326 * Teresa Patel RN - 02/27/2023 2:31 PM EST Bed: 18 Expected date: Expected time: Means of arrival: Comments: 57 M sx consult Teresa Patel RN 02/28/23 0003 * Sherlyn Pardo RN - 02/27/2023 7:00 AM EST Report given to [facility] ER charge nurse at this time. Sherlyn Pardo RN 02/27/231906 documented in this [facility]11-17-2023 Emergency department Note* Lyudmila Her RN - 02/27/2023 8:44 PM EST ETA extended 2 hours 2245 Lyudmila Her RN 02/27/232043 [place] [id number] Emergency department Note* Nicolás Easley RN - 02/27/2023 2:31 PM EST 2315- ambulance crew @ bedside for transport. Report given Nicolás Easley RN 02/27/232326 [id number] Emergency department Note* Teresa Patel RN - 02/27/2023 2:31 PM EST Bed: 18 Expected date: Expected time: Means of arrival: Comments: 57 M sx consult Teresa Patel RN 02/28/232 [id number] Emergency department Triage note* Marsha Zaragoza RN - 02/27/2023 2:31 PM EST Pt co abdominal pain with nausea and vomiting x a few weeks. Pt talked to doctor and is waiting anastacia endoscopy. [id number] Emergency department Note* YOU Chery - 02/27/2023 2:31 PM EST [facility] PCU H6 eMERGENCY dEPARTMENT eNCOUnter Pt Name: Sophie Hicks Birthdate 1965 Date of evaluation: 02/27/2023 Provider: YOU CHERY CHIEF COMPLAINT Chief Complaint Patient presents with Abdominal Pain HISTORY OF PRESENT ILLNESS (Location/Symptom, Timing/Onset,Context/Setting, Quality, Duration, Modifying Factors, Severity) Note limiting factors. HPI This patient is seen in conjunction with Dr. Rodriguez who also interviewed and evaluated the patient at bedside. Sophie Hicks is a 57 y.o. male who presents to the emergency department with sudden onset of rightupper quadrant and midepigastric abdominal pain. Patient has been seen on previous occasion for thesame. He had a negative CT scan and was referred to GI but has not yet been able to schedule an appointment. He has been told he needs endoscopy. Patient states he went out to lunch with his today and ate 1 bite of a hamburger and had a sudden onset of severe pain and vomited. Nursing Notes were reviewed. REVIEW OF SYSTEMS (2+ for4; 10+ for level 5) Review of Systems Constitutional: Negative for chills and fever. HENT: Negative for ear pain and sore throat. Eyes: Negative for pain and visual disturbance. Respiratory: Negative for cough and shortness of breath. Cardiovascular: Negative for chest pain and palpitations. Gastrointestinal: Positive for abdominal pain, nausea and vomiting. Genitourinary: Negative for dysuria and hematuria. Musculoskeletal: Negative for arthralgias and back pain. Skin: Negative for color change and rash. Neurological: Negative for seizures and syncope. All other systems reviewed and are negative. PAST MEDICAL HISTORY Past Medical History: Diagnosis Date Abdominal pain Atrial fibrillation (HCC) Back pain Benign essential HTN 01/29/2015 Blood circulation, collateral CAD (coronary artery disease) mild - dx on cath - neg stress Cerebral artery occlusion with cerebral infarction (HCC) Chronic kidney disease COPD (chronic obstructive pulmonary disease) (HCC) COVID-19 05/03 COVID-19 vaccine series completed 09/25/2020 Moderna COVID-19 vaccine series completed 12/04/2020 BOOSTER CS (cervical spondylosis) 12/25/2004 CERVICAL SPINE DJD Difficulty sleeping Dizziness GERD (gastroesophageal reflux disease) History of colonic polyps 06/21/2013 repeat 2019 Hyperlipidemia Insomnia 08/15/2014 Joint pain, hip Joint pain, knee Memory difficulties Muscle weakness Peripheral polyneuropathy 09/30/2020 Shortness of breath at rest Sleep apnea Snoring SOBOE (shortness of breath on exertion) Type 2 diabetes mellitus (HCC) 03/19/2021 SURGICALHISTORY Past Surgical History: Procedure Laterality Date APPENDECTOMY BARIATRIC SURGERY 12/03/2021 Dr. Trevino CARDIAC CATHETERIZATION 12/17/2013 NORMAL CORONARY ARTERIES AND LVEF. COLONOSCOPY COLONOSCOPY 2020 CYSTOSCOPY 10/26/2020 CYSTOSCOPY 11/19/2020 NECK SURGERY Posterior cervical fusion ROTATOR CUFF REPAIR Bilateral UPPER GASTROINTESTINAL ENDOSCOPY 01/24/2021 Dr. Cabello CURRENT MEDICATIONS Current Discharge Medication List CONTINUE these medications which have NOT CHANGED Details Advair Diskus 250-50 MCG/ACT aerosol powder INHALE 1 PUFF INTO THE LUNGS TWICE DAILY Qty: 1 each, Refills: 10 Associated Diagnoses: Obstructive sleep apnea syndrome ALPRAZolam (Xanax) 1 MG tablet Take 1 mg by mouth every 24 hours as needed. aspirin 81 MG chewable tablet Chew 81 mg daily. aspirin 81 MG EC tablet 81 mg daily. atorvastatin (Lipitor) 80 MG tablet Take 80 mg by mouth daily. B-12 Microlozenge 500 MCG sublingual tablet dissolve 1 tablet under the tongue once daily bacitracin 500 UNIT/GM ointment APPLY TOPICALLY TO AFFECTED AREAS twice a day baclofen (Lioresal) 10 MG tablet Take 10 mg by mouth 2 times daily. bumetanide (Bumex) 1 MG tablet Take 1 mg by mouth in the morning and 1 mg before bedtime. buPROPion XL (Wellbutrin XL) 150 MG 24 hr tablet Take 150 mg by mouth daily. busPIRone (Buspar) 10 MG tablet Take 10 mg by mouth 2 times daily. calcium citrate 250 MG tablet Take 2 tablets (500 mg) by mouth in the morning and 2 tablets (500 mg) at noon and 2 tablets (500 mg) before bedtime. Take 2 tablets by mouth three times daily.. Qty: 180 tablet, Refills: 3 Associated Diagnoses: Deficiency of multiple nutrient elements Continuous Blood Gluc Sensor (Cooledge Lightingyle Alexandra 2 Sensor) misc USE DIRECTED; CHANGE SENSOR EVERY 14 DAYS Diclofenac Sodium (Voltaren) 1 % gel apply 2 grams to affected area four times a day dicyclomine (Bentyl) 10 MG capsule Take 10 mg by mouth in the morning and 10 mg at noon and 10 mg in the evening and 10 mg before bedtime. Emollient (Aquaphor Advanced Therapy) ointment ergocalciferol (Vitamin D2) 1.25 MG (20959 UT) capsule take 1 capsule by mouth every week for 8 doses famotidine (Pepcid) 20 MG tablet every 12 hours. fluticasone (Flonase) 50 MCG/ACT nasal spray Every 24 hours. furosemide (Lasix) 40 MG tablet Take 40 mg by mouth daily. gabapentin (Neurontin) 300 MG capsule Take 600 mg by mouth 3 times daily. hydrOXYzine pamoate (Vistaril) 25 MG capsule Take 25 mg by mouth in the morning and 25 mg before bedtime. ibuprofen 600 MG tablet take 1 tablet by mouth three times a day if needed with food or milk for 10days levothyroxine (Synthroid, Levoxyl) 75 MCG tablet methocarbamol (Robaxin) 500 MG tablet Take 1.5 tablets (750 mg) by mouth every 8 hours as needed for muscle spasms for up to 5 days. Qty: 20 tablet, Refills: 0 metOLazone (Zaroxolyn) 2.5 MG tablet mupirocin (Bactroban) 2 % ointment nystatin (Mycostatin) 984106 UNIT/GM powder Apply 1 Application topically 2 times daily. Apply topically to affected area two times daily. Qty: 60 g, Refills: 2 Associated Diagnoses: Yeast dermatitis ondansetron ODT (Zofran-ODT) 4 MG disintegrating tablet oxyCODONE-acetaminophen (Percocet) 5-325 MG tablet Take 1 tablet by mouth 2 times daily. pantoprazole (ProtoNix) 40 MG EC tablet Take 40 mg by mouth daily. PARoxetine (Paxil) 20 MG tablet Take 20 mg by mouth every morning. potassium chloride CR (Klor-Con M20) 20 MEQ ER tablet as needed. promethazine (Phenergan) 12.5 MG tablet Take 12.5 mg by mouth. senna-docusate sodium (Senokot-S) 8.6-50 MG tablet 1-2 tab(s) sertraline (Zoloft) 50 MG tablet Take 50 mg by mouth daily. sildenafil (Revatio) 20 MG tablet take 1-5 tablets BY MOUTH NEEDED sildenafil (Viagra) 100 MG tablet Every 24 hours. tamsulosin (Flomax) 0.4 MG 24 hr capsule Take 0.4 mg by mouth daily. torsemide (Demadex) 20 MG tablet Take 20 mg by mouth daily. traMADol ER (Ultram-ER) 300 MG 24 hr tablet Take 300 mg by mouth 3 times daily. triamcinolone (Kenalog) 0.1 % cream APPLY TO THE AFFECTED AREAS OF LOWER LEGS TWICE DAILY FOR 2 WEEKS... (REFER TO PRESCRIPTION NOTES). Ventolin HFA 108 (90 Base) MCG/ACT inhaler Inhale 2 puffs every 6 hours as needed. zinc gluconate 50 MG tablet Take 50 mg by mouth daily. Iodinated contrast media and Nsaids FAMILY HISTORY Family History Problem Relation Name Age of Onset Osteoarthritis Mother Lung cancer Mother smoker Coronary artery disease Other SOCIAL HISTORY Social History Socioeconomic History Marital status: Tobacco Use Smoking status: Never Smokeless tobacco: Never Substance and Sexual Activity Alcohol use: Never Drug use: No SCREENINGS PHYSICAL EXAM (5+ for level 4, 8+ for level 5) @EDTRIAGEVSS@ Physical Exam Vitals and nursing note reviewed. Constitutional: General: He is not in acute distress. Appearance: He is well-developed. HENT: Head: Normocephalic and atraumatic. Eyes: Conjunctiva/sclera: Conjunctivae normal. Cardiovascular: Rate and Rhythm: Normal rate and regular rhythm. Heart sounds: No murmur heard. Pulmonary: Effort: Pulmonary effort is normal. No respiratory distress. Breath sounds: Normal breath sounds. Abdominal: Palpations: Abdomen is soft. Comments: Abdomen is soft, nondistended, with tenderness in the midepigastrium. No rebound tenderness or guarding. No organomegaly or abnormal masses palpated. Bowel sounds active. Musculoskeletal: General: No swelling. Skin: General: Skin is warm and dry. Neurological: Mental Status: He is alert and oriented to person, place, and time. Psychiatric: Mood and Affect: Mood normal. Behavior: Behavior normal. DIAGNOSTIC RESULTS EKG (Per Emergency Physician): RADIOLOGY (Per EmergencyPhysician): Interpretation per the Radiologist below, if available at the time of this note: @EDRISRSLT@ : Labs Reviewed CBC WITH AUTO DIFFERENTIAL - Abnormal Result Value Auto WBC 7.3 RBC 4.77 Hemoglobin 13.7 Hematocrit 40.7 MCV 85.4 MCH 28.7 MCHC 33.7 RDW 14.2 Platelets 118 (*) MPV 6.6 (*) nRBC 0.0 Neutrophils Relative 71.9 Lymphocytes Relative 19.3 (*) Monocytes Relative 6.3 Eosinophils Relative 2.1 Basophils Relative 0.4 Neutrophils Absolute 5.2 Lymphocytes Absolute 1.4 Monocytes Absolute 0.5 Eosinophils Absolute 0.2 Basophils Absolute 0.0 BASIC METABOLIC PANEL - Abnormal SODIUM 139 POTASSIUM 3.9 CHLORIDE 107 CARBON DIOXIDE 24 UREA NITROGEN 13 CREATININE 1.06 GLUCOSE 101 (*) CALCIUM 8.6 ANION GAP 9 eGFR 80.8 HEPATIC FUNCTION PANEL - Abnormal BILIRUBIN, TOTAL 0.6 BILIRUBIN, DIRECT 0.0 ALKALINE PHOSPHATASE 66 AST (SGOT) 49 (*) ALT 26 ALBUMIN 4.2 TOTAL PROTEIN 7.2 CBC WITH AUTO DIFFERENTIAL - Abnormal Auto WBC 5.7 RBC 4.71 Hemoglobin 13.6 Hematocrit 41.0 MCV 87.1 MCH 28.8 MCHC 33.1 RDW 13.9 Platelets 103 (*) MPV 6.5 (*) nRBC 0.1 Neutrophils Relative 64.2 Lymphocytes Relative 24.6 Monocytes Relative 7.7 Eosinophils Relative 2.8 Basophils Relative 0.7 Neutrophils Absolute 3.7 Lymphocytes Absolute 1.4 Monocytes Absolute 0.4 Eosinophils Absolute 0.2 Basophils Absolute 0.0 BASIC METABOLIC PANEL - Abnormal SODIUM 139 POTASSIUM 4.1 CHLORIDE 106 CARBON DIOXIDE 25 UREA NITROGEN 14 CREATININE 1.09 GLUCOSE 101 (*) CALCIUM 8.8 ANION GAP 8 eGFR 78.2 CBC WITH AUTO DIFFERENTIAL - Abnormal Auto WBC 5.7 RBC 4.72 Hemoglobin 13.6 Hematocrit 41.0 MCV 86.8 MCH 28.8 MCHC 33.1 RDW 13.6 Platelets 89 (*) MPV 6.1 (*) nRBC 0.0 Neutrophils Relative 59.8 Lymphocytes Relative 26.8 Monocytes Relative 9.1 Eosinophils Relative 3.7 Basophils Relative 0.6 Neutrophils Absolute 3.4 Lymphocytes Absolute 1.5 Monocytes Absolute 0.5 Eosinophils Absolute 0.2 Basophils Absolute 0.0 THYROID STIMULATING HORMONE - Abnormal THYROID STIMULATING HORMONE 7.294 (*) BASIC METABOLIC PANEL - Abnormal SODIUM 137 POTASSIUM 4.1 CHLORIDE 104 CARBON DIOXIDE 26 UREA NITROGEN 13 CREATININE 1.07 GLUCOSE 121 (*) CALCIUM 8.5 ANION GAP 7 eGFR 79.9 CBC WITH AUTO DIFFERENTIAL - Abnormal Auto WBC 6.2 RBC 4.79 Hemoglobin 14.0 Hematocrit 41.6 MCV 86.9 MCH 29.3 MCHC 33.7 RDW 13.7 Platelets 90 (*) MPV 5.9 (*) nRBC 0.0 Neutrophils Relative 59.2 Lymphocytes Relative 28.6 Monocytes Relative 8.3 Eosinophils Relative 3.1 Basophils Relative 0.8 Neutrophils Absolute 3.7 Lymphocytes Absolute 1.8 Monocytes Absolute 0.5 Eosinophils Absolute 0.2 Basophils Absolute 0.1 GASTROINTESTINAL PCR PANEL - Normal Campylobacter Not Detected Plesiomonas shigelloides Not Detected Salmonella Not Detected Vibrio species Not Detected Vibrio cholerae Not Detected Yersinia enterocolitica Not Detected Enterotoxigenic E coli (ETEC) Not Detected Shiga toxin-producing E coli (STEC) Not Detected Shigella/Enteroinvasive E coli (EIEC) Not Detected Cryptosporidium Not Detected Cyclospora cayetanensis Not Detected Entamoeba histolytica Not Detected Giardia lamblia Not Detected Adenovirus F 40/41 Not Detected Astrovirus Not Detected Norovirus GI/GII Not Detected Rotavirus A Not Detected Sapovirus Not Detected Narrative: Methodology: Multiplex PCR LIPASE - Normal LIPASE 77 FERRITIN - Normal FERRITIN 21 IRON - Normal IRON, TOTAL 84 FOLATE - Normal FOLATE 11.2 VITAMIN D DEFICIENCY SCREENING (VIT D 25) - Normal VIT D 25-OH, TOTAL 36 Narrative: Therapy is based on measurement of Total 25-OHD with the following classification levels: Less than 20 ng/mL: Indicative of Vit D deficiency 20-30 ng/mL: Suggests Vit D insufficiency Optimal: Greater than or equal to 30 ng/mL Test performed by [email or web address] Competitive Immunoassay, measuring Total Vitamin D, not individual fractions. VITAMIN B12 - Normal VITAMIN B12 315 T3 FREE - Normal T3, FREE 4.62 FREE T4 - Normal FREE T4 1.19 PROTHROMBIN TIME - Normal PROTHROMBIN TIME 11.4 INR 1.1 BASIC METABOLIC PANEL - Normal SODIUM 136 POTASSIUM 4.0 CHLORIDE 102 CARBON DIOXIDE 24 UREA NITROGEN 12 CREATININE 1.10 GLUCOSE 85 CALCIUM 8.8 ANION GAP 10 eGFR 77.3 POCT GLUCOSE METER UNSOLICITED RESULTS - Normal Glucose 94 Narrative: Performed by: [facility] [place], [address] [place], [place] [address]IA ID: [id number] POCT GLUCOSE METER - Normal Glucose Blood, POC 94 BASIC METABOLIC PANEL WITH MG REFLEX Narrative: The following orders were created for panel order Basic Metabolic Panel w/ Mg Reflex. Procedure Abnormality Status --------- ------ Basic metabolic panel[[id number]] Abnormal Final result Please view results for these tests on the individual orders. BASIC METABOLIC PANEL WITH MG REFLEX Narrative: The following orders were created for panel order Basic Metabolic Panel w/ Mg Reflex. Procedure Abnormality Status --------- ------ Basic metabolic panel[[id number]] Abnormal Final result Please view results for these tests on the individual orders. BASIC METABOLIC PANEL WITH MG REFLEX Narrative: The following orders were created for panel order Basic Metabolic Panel w/ Mg Reflex. Procedure Abnormality Status --------- ------ Basic metabolic panel[[id number]] Normal Final result Please view results for these tests on the individual orders. VITAMIN E (TOCOPHEROL) ZINC COPPER, SERUM SELENIUM SERUM VITAMIN A All other labs were within normal range or not returned as of this dictation. EMERGENCY DEPARTMENT COURSE and DIFFERENTIALDIAGNOSIS/MDM: Vitals: Vitals: 03/01/23 2003 03/01/23 2118 03/02/23 0130 03/02/23 0521 BP: (!) 127/92 (!) 147/81 (!) 141/82 BP Location: Left arm Left arm Left arm Patient Position: Lying Lying Lying Pulse: 65 61 75 Resp: (!) 90 16 18 18 Temp: (!) 35.6 C (96 F) (!) 35.8 C (96.4 F) 36.9 C (98.4 F) TempSrc: Temporal Temporal Temporal SpO2: 95% 98% 97% Weight: Height: Medications buPROPion XL (Wellbutrin XL) 24 hr tablet 150 mg (150 mg Oral Given 03/02/23 0839) busPIRone (Buspar) tablet 10 mg (10 mg Oral Given 03/02/23838) dicyclomine (Bentyl) capsule 10 mg (10 mg Oral Given 03/02/23838) gabapentin (Neurontin) capsule 600 mg (600 mg Oral Given 03/02/23839) hydrOXYzine pamoate (Vistaril) capsule 25 mg (25 mg Oral Given 03/02/23839) sertraline (Zoloft) tablet 50 mg (50 mg Oral Given 03/02/23839) levothyroxine (Synthroid, Levoxyl) tablet 75 mcg (75 mcg Oral Given 03/02/23524) enoxaparin (Lovenox) syringe 40 mg (40 mg SubCUTAneous Given 03/02/23838) lactated Ringer's (LR) infusion (100 mL/hr IntraVENous New Bag 03/02/23522) ondansetron ODT (Zofran-ODT) disintegrating tablet 4 mg ( Oral See Alternative 03/02/23631) Or ondansetron (Zofran) injection 4 mg (4 mg IntraVENous Given 03/02/23631) oxyCODONE (Roxicodone) immediate release tablet 5 mg ( Oral See Alternative 03/02/23522) Or oxyCODONE (Roxicodone) immediate release tablet 10 mg (10 mg Oral Given 03/02/23522) HYDROmorphone (Dilaudid) injection 0.5 mg (0.5 mg IntraVENous Given 03/02/23631) acetaminophen (Tylenol) tablet 1,000 mg (1,000 mg Oral Not Given 03/02/235) promethazine (Phenergan) injection 6.25 mg (has no administration in time range) scopolamine (Transderm-Scop) patch 1 patch (1 patch TransDERmal Medication Applied 02/28/23457) pantoprazole (ProtoNix) 40 mg in sodium chloride (PF) 0.9 % 10 mL injection (40 mg IntraVENous Given 03/02/23839) cholestyramine (Questran) packet 4 g (4 g Oral Given 03/02/23 0837) sucralfate (Carafate) tablet 1 g (1 g Oral Given 03/02/23599) methocarbamol (Robaxin) tablet 750 mg (750 mg Oral Given 03/02/23 0523) polyethylene glycol (PEG) 3350 (Miralax) packet 17 g (17 g Oral Not Given 03/02/23 09) senna-docusate sodium (Senokot-S) 8.6-50 MG tablet 2 tablet (2 tablets Oral Given 03/01/23 1108) Lidocaine 4 % patch 1 patch (1 patch TransDERmal Not Given 03/02/23 09) HYDROmorphone (Dilaudid) injection 1 mg (1 mg IntraVENous Given 02/27/23 1521) ondansetron (Zofran) injection 4 mg (4 mg IntraVENous Given 02/27/23 1522) pantoprazole (ProtoNix) 40 mg in sodium chloride (PF) 0.9 % 10 mL injection (40 mg IntraVENous Given 02/27/23 1616) aluminum & magnesium hydroxide-simethicone (Mylanta) 200-200-20 MG/5ML oral suspension 10 mL (10 mL Oral Given 02/27/23 1615) HYDROmorphone (Dilaudid) injection 1 mg (1 mg IntraVENous Given 02/27/23 1616) metoclopramide (Reglan) injection 10 mg (10 mg IntraVENous Given 02/27/23 1617) HYDROmorphone (Dilaudid) injection 1 mg (1 mg IntraVENous Given 02/27/23 1848) HYDROmorphone (Dilaudid) injection 0.5 mg (0.5 mg IntraVENous Given 02/27/23 2219) diatrizoate meglumine-sodium (Gastrografin) 66-10 % solution 30 mL (30 mL Oral Given 02/28/23 0915) Medical Decision Making Problems Addressed: Abdominal pain, epigastric: complicated acute illness or injury Amount and/or Complexity of Data Reviewed Labs: ordered. Radiology: ordered. Risk OTC drugs. Prescription drug management. Decision regarding hospitalization. Patient presents to the emergency department complaining of recurrent midepigastric and upper abdominal pain. Symptoms started after starting to eat a hamburger today. He has been seen for this in the past and had negative work- ups. He has been referred to gastroenterology but has not yet been ableto schedule an appointment. He has been told he likely needs endoscopy. Differential diagnosis gastritis, PUD, GERD, gastroenteritis, cholelithiasis, cholecystitis, pancreatitis Chronic conditions impacting care: History of gastric bypass surgery, CAD, GERD, Social determinants affecting health: None ED diagnostics included a CBC with a white count of 7.3 and 71% neutrophils. Hemoglobin 13.7. BMP is a sodium of 139 and potassium 3.9. Glucose 101. Hepatic function panel showed an SGOT of 49 and ALT of 26. Serum lipase of 77. An ultrasound of the gallbladder, per radiologist review, showed coarseechogenic liver suggesting hepatic steatosis or other hepatocellular disease. No evidence of a liver mass. This patient disposition was determined by Dr. Rodriguez. He did discuss this case with Dr. Neves and it was agreed patient would be transferred ED to ED for general surgery evaluation and possible admission. CONSULTS: None PROCEDURES: Unless otherwise noted below, none Procedures Patients symptoms are consistent with sepsis, severe sepsis, or septic shock (If yes use .sepsiscoremeasure): No FINAL IMPRESSION 1. Abdominal pain, epigastric DISPOSITION/PLAN DISPOSITION Admit 02/28/2023 03:01:37 AM PATIENT REFERRED TO: No follow-up provider specified. DISCHARGE MEDICATIONS: Current Discharge Medication List @[facility]([id number]:LAST:1)@ (Please note: Portions of this note were completed with a voice recognition program. Efforts were made to edit thedictations but occasionally words and phrases are mis-transcribed.) Form [id number] YOU CHERY (electronically signed) Emergency Medicine Provider YOU Chery 03/02/23 0907 [employer] Work Phone: [phone] 524-204011-17-2023 Physician Emergency department Note* Sinan Rodriguez MD - 02/27/2023 2:31 PM EST Emergency Department Encounter [facility] ED Patient: Sophie Hicks : 1965 Date of Evaluation: 02/27/2023 ED Supervising Physician: Sinan Rodriguez MD I independently examined and evaluated Sophie Hicks. This will serve as my Supervisory note as the filterer of record and shared attestation. Idid perform a substantive portion of the visit including all aspects of the Medical Decision Making. I wore appropriate PPE for the entirety of this encounter. In brief, Sophie Hicks is a 57 y.o. male that presents to the emergency department with concern for right upper quadrant abdominal pain and midepigastric pain. He has been having the symptoms for atleast the past 2 weeks. Has been seen several times in the emergency department for similar most recently was seen on the of this past monthAnd at that time provider had discussed with general surgery who recommended that he follow-up in the outpatient setting. He notes that he has been tryingto obtain a EGD as per surgery recommendations although has not been successful in this. Telephone e ncounters from his surgeons office note that they have been having a hard time reaching him as wellwhich might be an issue. He has had bariatric surgery a year and a half ago. He endorses been taking all the medications that he supposed to but still cannot eat or drink much and currently has been using liquid protein shakes for nutrition although still hurts when he drinks some Focused exam: Patient appears uncomfortable has tenderness diffusely and through his entire abdomen. Brief ED course/MDM: EMERGENCY DEPARTMENT COURSE and DIFFERENTIAL DIAGNOSIS/MDM: Vitals: Vitals: 02/27/23 1432 02/27/23 1434 BP: 102/81 Pulse: 79 Resp: 18 Temp: 37.3 C (99.1 F) TempSrc: Temporal SpO2: 98% Weight: 125 kg (275 lb) The patient presented with a chief complaint of nausea, vomiting, abdominal pain. The differential diagnosis associated with this patient's presentation includes marginal ulcer, complication of bariatric surgery, gallbladder pathology, gastroenteritis, GERD gastritis. Our workup consisted of ordering/reviewing patient has had CT scans done as recently as last week and when he was seen previously they recommended against this. We will withhold CT scan at this pointin time as his blood work otherwise looks very reassuring does not have any significant electrolytederangements normal LFTs negative lipase and normal CBC. We will do an right upper quadrant ultrasound and see if he has symptom relief with medications. May need to discuss with his bariatric surgeon about next steps as he has been seen several times for same symptoms and has not had an EGD done to diagnosis symptoms. Ultrasound showedEchogenic liver suggesting hepatic steatosis or hepatocellular disease. No liver masses noted did discuss with Dr. Neves of bariatric surgery who recommended ED to ED transfer for general surgery evaluation possible admission Diagnoses as of 02/27/23 1839 Abdominal pain, epigastric Diagnostic tests considered but not performed: External records reviewed: Diagnostics interpreted by me: Discussions with other clinicians: Chronic conditions impacting care: Social determinants of health affecting care: ED Medications managed: Medications HYDROmorphone (Dilaudid) injection 1 mg (1 mg IntraVENous Given 02/27/23 1521) ondansetron (Zofran) injection 4 mg (4 mg IntraVENous Given 02/27/23 1522) pantoprazole (ProtoNix) 40 mg in sodium chloride (PF) 0.9 % 10 mL injection (40 mg IntraVENous Given 02/27/23 1616) aluminum & magnesium hydroxide-simethicone (Mylanta) 200-200-20 MG/5ML oral suspension 10 mL (10 mL Oral Given 02/27/23 1615) HYDROmorphone (Dilaudid) injection 1 mg (1 mg IntraVENous Given 02/27/23 1616) metoclopramide (Reglan) injection 10 mg (10 mg IntraVENous Given 02/27/23 1617) Prescription drugs considered: Disposition and plan: Epigastric abdominal pain, transfer All diagnostic, treatment, and disposition decisions were made by myself in conjunction with the Resident/CODI. I also supervised plaza portions of any procedures performed by the Resident/CODI. For all further details of the patient's emergency department visit, please see their documentation. (Comment: Please note this report has been produced using speech recognition software and may contain errors related to that system including errors in grammar, punctuation, and spelling, as well as words and phrases that may be inappropriate. If there are any questions or concerns please feel freeto contact the dictating provider for clarification.) Sinan Rodriguez MD Acute Care [facility] Sinan Rodriguez MD 02/27/23 [address] [employer] Phone: [phone] Physician Emergency department Note* Chhaya Hanson PA-C - 02/27/2023 2:31 PM EST EMERGENCY DEPARTMENT ENCOUNTER Pt Name: Sophie Hicks Birthdate 1965 Date of evaluation: 02/27/2023 ED Provider: Chhaya Hanson PA-C CHIEF COMPLAINT Chief Complaint Patient presents with Abdominal Pain HISTORY OF PRESENT ILLNESS (Location/Symptom, Timing/Onset, Context/Setting, Quality, Duration, Modifying Factors, Severity) Note limiting factors. I wore appropriate PPE for the entirety of this encounter. HPI Sophie Hicks is a 57 y.o. male who presents to the emergency department for evaluation of abdominal pain in the right upper and mid epigastric area. Patient was seen over at [facility], and sent over here for further evaluation and management. Patient states is been an ongoing problem for the past few months, and this is happened previously. States he had a negative CT scan earlier this month, and was referred to GI, but has not been able to schedule anything with them yet. He was toldthat he would need an endoscopy. States that he went out to lunch with his today, ate 1 singlebite of a hamburger, and has since had a sudden, onset of severe pain and had nausea and vomiting. States that he then went to [facility] for further evaluation, and after their work-up they discussed with Dr. Neves who said patient should be transferred to [facility] for further evaluation by surgery residents and for possible admission. Nursing Notes were reviewed. Limitations to history: None Outside historians: None REVIEW OF SYSTEMS Review of Systems Constitutional: Negative for chills and fever. HENT: Negative for ear pain and sore throat. Eyes: Negative for pain and visual disturbance. Respiratory: Negative for cough and shortness of breath. Cardiovascular: Negative for chest pain and palpitations. Gastrointestinal: Positive for abdominal pain, nausea and vomiting. Endocrine: Negative. Genitourinary: Negative for dysuria and hematuria. Musculoskeletal: Negative for arthralgias and back pain. Skin: Negative for color change and rash. Allergic/Immunologic: Negative. Neurological: Negative for seizures and syncope. Hematological: Negative. Psychiatric/Behavioral: Negative. All other systems reviewed and are negative. 14 systems reviewed, positives and pertinent negatives as per HPI. All other systems were reviewed and are negative. PAST MEDICAL HISTORY Past Medical History: Diagnosis Date Abdominal pain Atrial fibrillation (HCC) Back pain Benign essential HTN 01/29/2015 Blood circulation, collateral CAD (coronary artery disease) mild - dx on cath - neg stress Cerebral artery occlusion with cerebral infarction (HCC) Chronic kidney disease COPD (chronic obstructive pulmonary disease) (HCC) COVID-19 05/03 COVID-19 vaccine series completed 09/25/2020 Moderna COVID-19 vaccine series completed 12/04/2020 BOOSTER CS (cervical spondylosis) 12/25/2004 CERVICAL SPINE DJD Difficulty sleeping Dizziness GERD (gastroesophageal reflux disease) History of colonic polyps 06/21/2013 repeat 2019 Hyperlipidemia Insomnia 08/15/2014 Joint pain, hip Joint pain, knee Memory difficulties Muscle weakness Peripheral polyneuropathy 09/30/2020 Shortness of breath at rest Sleep apnea Snoring SOBOE (shortness of breath on exertion) Type 2 diabetes mellitus (HCC) 03/19/2021 SURGICAL HISTORY Past Surgical History: Procedure Laterality Date APPENDECTOMY BARIATRIC SURGERY 12/03/2021 Dr. Trevino CARDIAC CATHETERIZATION 12/17/2013 NORMAL CORONARY ARTERIES AND LVEF. COLONOSCOPY COLONOSCOPY 2020 CYSTOSCOPY 10/26/2020 CYSTOSCOPY 11/19/2020 NECK SURGERY Posterior cervical fusion ROTATOR CUFF REPAIR Bilateral UPPER GASTROINTESTINAL ENDOSCOPY 01/24/2021 Dr. Cabello CURRENT MEDICATIONS Previous Medications ADVAIR DISKUS 250-50 MCG/ACT AEROSOL POWDER INHALE 1 PUFF INTO THE LUNGS TWICE DAILY ALPRAZOLAM (XANAX) 1 MG TABLET Take 1 mg by mouth every 24 hours as needed. ASPIRIN 81 MG CHEWABLE TABLET Chew 81 mg daily. ASPIRIN 81 MG EC TABLET 81 mg daily. ATORVASTATIN (LIPITOR) 80 MG TABLET Take 80 mg by mouth daily. B-12 MICROLOZENGE 500 MCG SUBLINGUAL TABLET dissolve 1 tablet under the tongue once daily BACITRACIN 500 UNIT/GM OINTMENT APPLY TOPICALLY TO AFFECTED AREAS twice a day BACLOFEN (LIORESAL) 10 MG TABLET Take 10 mg by mouth. BUMETANIDE (BUMEX) 1 MG TABLET Take 1 mg by mouth in the morning and 1 mg before bedtime. BUPROPION XL (WELLBUTRIN XL) 150 MG 24 HR TABLET Take 150 mg by mouth daily. BUSPIRONE (BUSPAR) 10 MG TABLET Take 10 mg by mouth 2 times daily. CALCIUM CITRATE 250 MG TABLET Take 2 tablets (500 mg) by mouth in the morning and 2 tablets (500 mg) at noon and 2 tablets (500 mg) before bedtime. Take 2 tablets by mouth three times daily.. CONTINUOUS BLOOD GLUC SENSOR (FREESTYLE ALEXANDRA 2 SENSOR) [facility] USE DIRECTED; CHANGE SENSOR EVERY 14 DAYS CYCLOPHOSPHAMIDE (CYTOXAN) 50 MG CAPSULE 150 mg. DICLOFENAC SODIUM (VOLTAREN) 1 % GEL apply 2 grams to affected area four times a day DICYCLOMINE (BENTYL) 10 MG CAPSULE Take 10 mg by mouth in the morning and 10 mg at noon and 10 mg in the evening and 10 mg before bedtime. EMOLLIENT (AQUAPHOR ADVANCED THERAPY) OINTMENT ERGOCALCIFEROL (VITAMIN D2) 1.25 MG (59922 UT) CAPSULE take 1 capsule by mouth every week for 8 doses FAMOTIDINE (PEPCID) 20 MG TABLET every 12 hours. FLUTICASONE (FLONASE) 50 MCG/ACT NASAL SPRAY Every 24 hours. FUROSEMIDE (LASIX) 40 MG TABLET Take 40 mg by mouth in the morning and 40 mg before bedtime. GABAPENTIN (NEURONTIN) 300 MG CAPSULE Take 600 mg by mouth 3 times daily. HYDROXYZINE PAMOATE (VISTARIL) 25 MG CAPSULE Take 25 mg by mouth in the morning and 25 mg before bedtime. IBUPROFEN 600 MG TABLET take 1 tablet by mouth three times a day if needed with food or milk for 10days LEVOTHYROXINE (SYNTHROID, LEVOXYL) 75 MCG TABLET METHOCARBAMOL (ROBAXIN) 500 MG TABLET Take 1.5 tablets (750 mg) by mouth every 8 hours as needed for muscle spasms for up to 5 days. METOLAZONE (ZAROXOLYN) 2.5 MG TABLET MUPIROCIN (BACTROBAN) 2 % OINTMENT NYSTATIN (MYCOSTATIN) 632092 UNIT/GM POWDER Apply 1 Application topically 2 times daily. Apply topically to affected area two times daily. ONDANSETRON ODT (ZOFRAN-ODT) 4 MG DISINTEGRATING TABLET OXYCODONE-ACETAMINOPHEN (PERCOCET) 5-325 MG TABLET Take 1 tablet by mouth 2 times daily. PANTOPRAZOLE (PROTONIX) 40 MG EC TABLET Take 40 mg by mouth daily. PAROXETINE (PAXIL) 20 MG TABLET Take 20 mg by mouth every morning. POTASSIUM CHLORIDE CR (KLOR-CON M20) 20 MEQ ER TABLET as needed. PREGABALIN (LYRICA) 150 MG CAPSULE Take 150 mg by mouth in the morning and 150 mg before bedtime. PROMETHAZINE (PHENERGAN) 12.5 MG TABLET Take 12.5 mg by mouth. SENNA-DOCUSATE SODIUM (SENOKOT-S) 8.6-50 MG TABLET 1-2 tab(s) SERTRALINE (ZOLOFT) 50 MG TABLET Take 50 mg by mouth daily. SILDENAFIL (REVATIO) 20 MG TABLET take 1-5 tablets BY MOUTH NEEDED SILDENAFIL (VIAGRA) 100 MG TABLET Every 24 hours. SUCRALFATE (CARAFATE) 1 GM/10ML SUSPENSION Take 10 mL (1 g) by mouth 3 times daily for 14 days. TAMSULOSIN (FLOMAX) 0.4 MG 24 HR CAPSULE Take 0.4 mg by mouth daily. TORSEMIDE (DEMADEX) 20 MG TABLET 20 mg. TRAMADOL ER (ULTRAM-ER) 300 MG 24 HR TABLET take 0.5 tablet by mouth twice a day TRIAMCINOLONE (KENALOG) 0.1 % CREAM APPLY TO THE AFFECTED AREAS OF LOWER LEGS TWICE DAILY FOR 2 WEEKS... (REFER TO PRESCRIPTION NOTES). VENTOLIN HFA 108 (90 BASE) MCG/ACT INHALER Inhale 2 puffs every 6 hours as needed. ZINC GLUCONATE 50 MG TABLET Take 50 mg by mouth daily. ALLERGIES Iodinated contrast media and Nsaids FAMILY HISTORY Family History Problem Relation Name Age of Onset Osteoarthritis Mother Lung cancer Mother smoker Coronary artery disease Other SOCIAL HISTORY Social History Socioeconomic History Marital status: Tobacco Use Smoking status: Never Smokeless tobacco: Never Substance and Sexual Activity Alcohol use: Never Drug use: No SCREENINGS PHYSICAL EXAM ED Triage Vitals [02/27/23 1434] Temp Heart Rate Resp BP 37.3 C (99.1 F) 79 18 102/81 SpO2 Temp Source Heart Rate Source Patient Position 98 % Temporal Monitor -- BP Location FiO2 (%) -- -- Physical Exam Vitals and nursing note reviewed. Constitutional: General: He is not in acute distress. Appearance: He is well-developed. HENT: Head: Normocephalic and atraumatic. Eyes: Conjunctiva/sclera: Conjunctivae normal. Cardiovascular: Rate and Rhythm: Normal rate and regular rhythm. Heart sounds: Normal heart sounds. No murmur heard. Pulmonary: Effort: Pulmonary effort is normal. No respiratory distress. Breath sounds: Normal breath sounds. Abdominal: Palpations: Abdomen is soft. Tenderness: There is abdominal tenderness in the right upper quadrant, epigastric area and left upper quadrant. Comments: Patient's abdomen is protuberant, but soft. There is noted right upper, epigastric and left upper quadrant abdominal pain. No significant guarding rigidity, or signs of peritonitis. Musculoskeletal: General: No swelling. Cervical back: Neck supple. Skin: General: Skin is warm and dry. Capillary Refill: Capillary refill takes less than 2 seconds. Neurological: General: No focal deficit present. Mental Status: He is alert and oriented to person, place, and time. Psychiatric: Mood and Affect: Mood normal. DIAGNOSTIC RESULTS RADIOLOGY (Per Emergency Physician): Interpretation per the Radiologist below, if available at the time of this note: US abdomen limited Final Result 1. Coarse, echogenic liver suggesting hepatic steatosis or other hepatocellular disease. No sonographic evidence of a liver mass. 2. No acute process. Report Dictated on Electronically Signed By: Ramón Izaguirre MD Electronically Signed Date/Time: 02/27/2023 5:01 PM EST LABS: Labs Reviewed CBC WITH AUTO DIFFERENTIAL - Abnormal Result Value Auto WBC 7.3 RBC 4.77 Hemoglobin 13.7 Hematocrit 40.7 MCV 85.4 MCH 28.7 MCHC 33.7 RDW 14.2 Platelets 118 (*) MPV 6.6 (*) nRBC 0.0 Neutrophils Relative 71.9 Lymphocytes Relative 19.3 (*) Monocytes Relative 6.3 Eosinophils Relative 2.1 Basophils Relative 0.4 Neutrophils Absolute 5.2 Lymphocytes Absolute 1.4 Monocytes Absolute 0.5 Eosinophils Absolute 0.2 Basophils Absolute 0.0 BASIC METABOLIC PANEL - Abnormal SODIUM 139 POTASSIUM 3.9 CHLORIDE 107 CARBON DIOXIDE 24 UREA NITROGEN 13 CREATININE 1.06 GLUCOSE 101 (*) CALCIUM 8.6 ANION GAP 9 eGFR 80.8 HEPATIC FUNCTION PANEL - Abnormal BILIRUBIN, TOTAL 0.6 BILIRUBIN, DIRECT 0.0 ALKALINE PHOSPHATASE 66 AST (SGOT) 49 (*) ALT 26 ALBUMIN 4.2 TOTAL PROTEIN 7.2 LIPASE - Normal LIPASE 77 POCT GLUCOSE METER UNSOLICITED RESULTS - Normal Glucose 94 Narrative: Performed by: Padmini Singletary, [address] [place] [id number] CLIA ID: [id number] POCT GLUCOSE METER - Normal Glucose Blood, POC 94 All other labs were within normal range or not returned as of this dictation. EMERGENCY DEPARTMENT COURSE and DIFFERENTIAL DIAGNOSIS/MDM: Vitals: Vitals: 02/27/23 1434 02/27/23 1852 02/27/23 2200 02/28/23 0128 BP: 102/81 133/65 134/70 104/88 Pulse: 79 61 64 Resp: Temp: 37.3 C (99.1 F) 37.1 C (98.7 F) TempSrc: Temporal Oral SpO2: 98% 98% 98% Weight: Medications HYDROmorphone (Dilaudid) injection 1 mg (1 mg IntraVENous Given 02/27/23 1521) ondansetron (Zofran) injection 4 mg (4 mg IntraVENous Given 02/27/23 1522) pantoprazole (ProtoNix) 40 mg in sodium chloride (PF) 0.9 % 10 mL injection (40 mg IntraVENous Given 02/27/23 161) aluminum & magnesium hydroxide-simethicone (Mylanta) 200-200-20 MG/5ML oral suspension 10 mL (10 mL Oral Given 02/27/23 1615) HYDROmorphone (Dilaudid) injection 1 mg (1 mg IntraVENous Given 02/27/23 1616) metoclopramide (Reglan) injection 10 mg (10 mg IntraVENous Given 02/27/23 1617) HYDROmorphone (Dilaudid) injection 1 mg (1 mg IntraVENous Given 02/27/23 1848) HYDROmorphone (Dilaudid) injection 0.5 mg (0.5 mg IntraVENous Given 02/27/23 2219) ED care was supervised by Dr. Rodriguez who independently examined and evaluated the patient. Please see their attestation note for further details. In brief, Sophie Hicks is a 57 y.o. male who presented to the emergency department presenting to the ER for further evaluation of abdominal pain sent over from [place] for further evaluation and management by general surgery. Patient has been having this intermittent epigastric/right upper quadrant/left lower quadrant abdominal pain for the past few months, she states that today when asked to eat, had 1 bite of food and had immediate pain and nausea and vomiting, and presented to the ER secondary to this. Nursing notes and medical records reviewed, vital signs reviewed and within normal limits on arrival. Differential considerations included-peptic ulcer disease, gastritis, biliary abnormalities, liver abnormalities, pancreatitis, gastric bypass abnormality Initial medical management includes patient was given pain control in the form of Dilaudid at department in hospital, Zofran, Protonix, Mylanta as well as Reglan. Other medications considered other antiemetics. Initial workup includes [id number] glucose BMP hepatic function panel lipase CBC ultrasound of the abdomen Other workup considerations included-consider the need for CT abdomen pelvis, but patient had a CT scan done on 02-15-2023. Upon reassessment patient still well-appearing no acute distress. Lab workup results CBC shows no significant leukocytosis, hemoglobin hematocrit are stable platelets 112. BMP shows glucose 101 with no other significant derangement. Hepatic function panel shows ASTof 49, lipase 77 Imaging results per radiology ultrasound of the abdomen limited-1. Coarse, echogenic liver suggesting hepatic steatosis or other hepatocellular disease. No sonographic evidence of a liver mass. 2. No acute process. Chronic conditions contributing to patients presentation include-history of bariatric surgery, history of this epigastric abdominal pain times a few months. Critical care none I have low suspiscion for (effectively ruled ddx out via) at this time for any significant biliary disease, liver masses, transaminitis, significant lecture light abnormalities, elevated white count concerning for possible infection. Social determinants to care: lack of insurance/PCP, homelessness, health literacy none Consulted once patient arrived to [facility] I did reevaluate the patient, he does have this epigastric/right upper and left upper quadrant abdominal pain, did consult with general surgery who came down evaluated the patient. They are going to admit the patient for further work-up and management secondary to his symptomology. Diagnosis (mild, severe, acute, chronic, stable, unstable) abdominal pain epigastric in nature. Disposition patient be admitted for further evaluation and management to general surgery. I Chhaya Hanson PA-C am the filterer of record. PROCEDURES: Unless otherwise noted below, none Procedures FINAL IMPRESSION 1. Abdominal pain, epigastric DISPOSITION Admit 02/28/2023 03:01:37 AM PATIENT REFERRED TO: No follow-up provider specified. DISCHARGE MEDICATIONS: New Prescriptions No medications on file (Comment: Please note this report has been produced using speech recognition software and may contain errors related to that system including errors in grammar, punctuation, and spelling, as well as words and phrases that may be inappropriate. If there are any questions or concerns please feel freeto contact the dictating provider for clarification.) Chhaya Hanson PA-C (electronically signed) Emergency Medicine Provider Chhaya Hanson PA-C 02/28/23 [address] [employer] Phone: [phone] Emergency department Note* Sherlyn Pardo RN - 02/27/2023 7:00 AM EST Report given to [facility] ER charge nurse at this time. Sherlyn Pardo RN 02/27/23 7941 [facility] [id number] Telephone encounter Note* Telephone Encounter - Harsha Bell NP - 02/23/2023 1:51 PM EST Note, thank you. EGD was ordered but patient hasn't scheduled. Will follow up after EGD. Thank you. [facility] [id number] Miscellaneous Notes* Telephone Encounter - Harsha Bell NP - 02/23/2023 1:51 PM EST Note, thank you. EGD was ordered but patient hasn't scheduled. Will follow up after EGD. Thank you. * Telephone Encounter - Libia Nunez LPN - 02/23/2023 12:43 PM EST Received call from patient stating was seen @ [facility] 02/21/2023. No new medication prescribed. No testing completed, instructed to follow up with MP. C/O continues to have abdominal pain 11/20. Notable to eat / drink with out pain. Gave # for ALS scheduling to set up EGD. * Telephone Encounter - Harsha Bell NP - 02/17/2023 2:21 PM EST Noted, thanks * Telephone Encounter - Libia Nunez LPN - 02/17/2023 1:02 PM EST Received call from patient stating his pain is becoming worse. 12/21, sharp stabbing pain becoming more constant. Denies fever. Last BM 02/17/2023 diarrhea, normal brown color. Continues to take Colace, Protonix and Sucralfate. ALS attempted to schedule EGD but line was busy and has not attempted again. * Telephone Encounter - Harsha Bell NP - 02/17/2023 10:01 AM EST Called patient's home phone twice but it hung up each time and I was unable to leave a message. ER placed patient on Carafate and patient is currently taking Protonix. Will place order in for an EGD. * Telephone Encounter - Libia Nunez LPN - 02/16/2023 1:44 PM EST LSG 12/03/2021- Suhail Last ov Next ov Patient called with c/o ABDOMINAL PAIN: Surgery Date-Surgeon MP 12/03/2021 Last OV-11/30/2022 Next OV if available 06/22/2023 Date of onset: 5 days ago Location: [ ] RUQ, [ ] RLQ, [ ] LUQ, [ ] LLQ, [ x ] Epigastric. Intensity on scale from 0-10 : 8 [if greater than 6, verbal notification to provider] Description of Pain: [ xx [ sharp, [ ] dull, [ ] stabbing, [ xx ] cramping, [ ] aching. [ ] constant Date of last bowel movement: 02/16/2023 Describe bowel movement: [ ] normal, [ x ] diarrhea or [ ] Constipation Color of bowel movement: [ xx ] brown [ ] black tarry [ ] maroon [ ] with bright red blood Fever?: [ ] Yes [ x ] No Able to drink liquids without vomiting :[ ] Yes [ xx ] No sometimes vomits Able to eat solid food without vomiting: [ ] Yes [ xx ] No sometime vomit Pain become worse with eating or drinking? yes Gallbladder still in place? [ xx ] Yes or [ ] No. Still taking PPI? [ ] Yes or [ xx ] No. Was prescribed Protonix at ED 02/15/2023 If yes, frequency: [ ] once or [ ] twice daily. Xx TID Symptoms of esophageal reflux?: no Do you smoke, drink alcohol, caffeine or use NSAIDS? no Surgery with in last month: No If yes: Incision: Positive red answers verbally delivered to ESCROW MANAGER or designee Message routed to CODI or designee General triage directions: If pt calling for the second time with C/O abd pain, pt given apt and DW CODI if need urgent slot that is not available. Notify FD/PAR apt for chart prep Pain is common in left side for Shahnaz and can be normal on the right side for Sleeve Pain is normal in the absence of any fever, n/v/d/c, and inadequate fluid intake Usually described as burning, searing, stabbing, ripping, tugging or pinching Pain made worse with movement, usually laying to sitting, sitting to standing, etc Pain is a sudden onset, lasting about a week and will quickly resolve Take pain meds as ordered (no additional narcotics will be given without appt). If out of narcotic given in the hospital, will need to take Tylenol. Apply ice/heat to site as comfortable Continue to ambulate as this will continue to help reduce the risk of DVT and pneumonia. Call the office with worsening symptoms or with any further questions or concerns documented in this [facility]11-13-2023 Telephone encounter Note* Telephone Encounter - Libia Nunez LPN - 02/23/2023 12:43 PM EST Received call from patient stating was seen @ [facility] 02/21/2023. No new medication prescribed. No testing completed, instructed to follow up with MP. C/O continues to have abdominal pain 11/20. Notable to eat / drink with out pain. Gave # for ALS scheduling to set up [facility]GD. [id number] Dis[facility]* Discharge Instructions* Dick Merlos DO - 02/21/2023 5:41 PM EST You have been worked up for your abdominal pain associated with bloody vomit. No acute cause for your symptoms have been identified today. After discussion with the surgery team it was deemed best that you follow-up outpatient with an endoscopy procedure with Dr. Trevino office. Please call Dr. Belinda hugo Thursday to schedule an endoscopy. Please return to the ED if your symptoms return or you develop new symptoms such as worsening bloody vomit or lightheadedness. documented in this [facility]11-11-2023 Emergency department Note* Bubba Smith MD - 02/21/2023 10:11 AM EST Emergency Department Encounter [facility] EMERGENCY DEPT Patient: Sophie Hicks : 1965 Date of Evaluation: 02/21/2023 ED Supervising Physician: Bubba Smith MD I independently examined and evaluated Sophie Hicks. This will serve as my Supervisory note and shared attestation. I did perform a substantive portion of the visit including all aspects of the Medical Decision Making. I wore appropriate PPE for the entirety of this encounter. In brief, Sophie Hicks is a 57 y.o. that presents to the emergency department 1 week of abdominal pain Focused exam: Vitals are stable patient is awake alert well-appearing no acute distress. Brief ED course/MDM: Patient present with abdominal pain he had a CT a week ago was normal but had persistent pain we consulted surgery given he had gastric bypass a year ago recommending a repeat CTwith contrast as contrast dye allergy will need pretreated patient will be signed out to oncoming attending surgery will see All diagnostic, treatment, and disposition decisions were made by myself in conjunction with the CODI. For all further details of the patient's emergency department visit, please see their documentation. (Comment: Please note this report has been produced using speech recognition software and may contain errors related to that system including errors in grammar, punctuation, and spelling, as well as words and phrases that may be inappropriate. If there are any questions or concerns please feel freeto contact the dictating provider for clarification.) Bubba Smith MD [facility] Bubba Smith MD 02/21/23 1510 documented in this [facility]11-11-2023 Physician Emergency department Note* Bubba Smith MD - 02/21/2023 10:11 AM EST Emergency Department Encounter [facility] EMERGENCY DEPT Patient: Sophie Hicks : 1965 Date of Evaluation: 02/21/2023 ED Supervising Physician: Bubba Smith MD I independently examined and evaluated Sophie Hicks. This will serve as my Supervisory note and shared attestation. I did perform a substantive portion of the visit including all aspects of the Medical Decision Making. I wore appropriate PPE for the entirety of this encounter. In brief, Sophie Hicks is a 57 y.o. that presents to the emergency department 1 week of abdominal pain Focused exam: Vitals are stable patient is awake alert well-appearing no acute distress. Brief ED course/MDM: Patient present with abdominal pain he had a CT a week ago was normal but had persistent pain we consulted surgery given he had gastric bypass a year ago recommending a repeat CTwith contrast as contrast dye allergy will need pretreated patient will be signed out to oncoming attending surgery will see All diagnostic, treatment, and disposition decisions were made by myself in conjunction with the CODI. For all further details of the patient's emergency department visit, please see their documentation. (Comment: Please note this report has been produced using speech recognition software and may contain errors related to that system including errors in grammar, punctuation, and spelling, as well as words and phrases that may be inappropriate. If there are any questions or concerns please feel freeto contact the dictating provider for clarification.) Bubba Smith MD [employer] Bubba Smith MD 02/21/23 1510 [employer] Phone: [phone] 505-630211-07-2023 Telephone encounter Note* Telephone Encounter - Harsha Bell NP - 02/17/2023 2:21 PM EST Noted, thanks [id number] Miscellaneous Notes* Telephone Encounter - Harsha Bell NP - 02/17/2023 2:21 PM EST Noted, thanks * Telephone Encounter - Libia Nunez LPN - 02/17/2023 1:02 PM EST Received call from patient stating his pain is becoming worse. 9/10, sharp stabbing pain becoming more constant. Denies fever. Last BM 02/17/2023 diarrhea, normal brown color. Continues to take Colace, Protonix and Sucralfate. ALS attempted to schedule EGD but line was busy and has not attempted again. * Telephone Encounter - Harsha Bell NP - 02/17/2023 10:01 AM EST Called patient's home phone twice but it hung up each time and I was unable to leave a message. ER placed patient on Carafate and patient is currently taking Protonix. Will place order in for an EGD. * Telephone Encounter - Libia Nunez LPN - 02/16/2023 1:44 PM EST MALACHI 12/03/2021- Suhail Last ov Next ov Patient called with c/o ABDOMINAL PAIN: Surgery Date-Surgeon MP 12/03/2021 Last OV-11/30/2022 Next OV if available 06/22/2023 Date of onset: 5 days ago Location: [ ] RUQ, [ ] RLQ, [ ] LUQ, [ ] LLQ, [ x ] Epigastric. Intensity on scale from 0-10 : 8 [if greater than 6, verbal notification to provider] Description of Pain: [ xx [ sharp, [ ] dull, [ ] stabbing, [ xx ] cramping, [ ] aching. [ ] constant Date of last bowel movement: 02/16/2023 Describe bowel movement: [ ] normal, [ x ] diarrhea or [ ] Constipation Color of bowel movement: [ xx ] brown [ ] black tarry [ ] maroon [ ] with bright red blood Fever?: [ ] Yes [ x ] No Able to drink liquids without vomiting :[ ] Yes [ xx ] No sometimes vomits Able to eat solid food without vomiting: [ ] Yes [ xx ] No sometime vomit Pain become worse with eating or drinking? yes Gallbladder still in place? [ xx ] Yes or [ ] No. Still taking PPI? [ ] Yes or [ xx ] No. Was prescribed Protonix at ED 02/15/2023 If yes, frequency: [ ] once or [ ] twice daily. Xx TID Symptoms of esophageal reflux?: no Do you smoke, drink alcohol, caffeine or use NSAIDS? no Surgery with in last month: No If yes: Incision: Positive red answers verbally delivered to ESCROW MANAGER or designee Message routed to CODI or designee General triage directions: If pt calling for the second time with C/O abd pain, pt given apt and DW CODI if need urgent slot that is not available. Notify FD/PAR apt for chart prep Pain is common in left side for Shahnaz and can be normal on the right side for Sleeve Pain is normal in the absence of any fever, n/v/d/c, and inadequate fluid intake Usually described as burning, searing, stabbing, ripping, tugging or pinching Pain made worse with movement, usually laying to sitting, sitting to standing, etc Pain is a sudden onset, lasting about a week and will quickly resolve Take pain meds as ordered (no additional narcotics will be given without appt). If out of narcotic given in the hospital, will need to take Tylenol. Apply ice/heat to site as comfortable Continue to ambulate as this will continue to help reduce the risk of DVT and pneumonia. Call the office with worsening symptoms or with any further questions or concerns documented in this [facility]11-07-2023 Telephone encounter Note* Telephone Encounter - Libia Nunez LPN - 02/17/2023 1:02 PM EST Received call from patient stating his pain is becoming worse. 12/21, sharp stabbing pain becoming more constant. Denies fever. Last BM 02/17/2023 diarrhea, normal brown color. Continues to take Colace, Protonix and Sucralfate. ALS attempted to schedule EGD but line was busy and has not attempted again. [id number] Tele[facility] encounter Note* Telephone Encounter - Libia Nunez LPN - 02/17/2023 11:00 AM EST Patient called our office to schedule EGD, states he is available to take call. [place] [id number] Miscellaneous Notes* Telephone Encounter - Libia Nunez LPN - 02/17/2023 11:00 AM EST Patient called our office to schedule EGD, states he is available to take call. * Telephone Encounter - Lis Torres - 02/17/2023 10:50 AM EST Attempted to contact patient but phone rang busy. Will try again. DP documented in this [facility]11-07-2023 Telephone encounter Note* Telephone Encounter - Lis Torres - 02/17/2023 10:50 AM EST Attempted to contact patient but phone rang busy. Will try again. DP [place] [id number] History of Present illness Narrative* Harsha Cavanaugh NP - 02/17/2023 10:02 AM EST ENDOSCOPY ORDERS To be scheduled with: Dr. Cabello Patient is: Post-op CPT code: EGD with biopsy- CPT 97899 Diagnosis: Abdominal pain- R10.84 Home O2: No Known Difficult Intubation: No Is patient on a GLP-1 agonist? No If yes- which one? N/A Please advise that patient hold this medication for 1 week before EGD documented in this [facility]11-07-2023 Telephone encounter Note* Telephone Encounter - Harsha Bell NP - 02/17/2023 10:01 AM EST Called patient's home phone twice but it hung up each time and I was unable to leave a message. ER placed patient on Carafate and patient is currently taking Protonix. Will place order in for an EGD. [place] [id number] Telephone encounter Note* Telephone Encounter - Libia Nunez LPN - 02/16/2023 1:44 PM EST MALACHI 12/03/2021- Suhail Last ov Next ov Patient called with c/o ABDOMINAL PAIN: Surgery Date-Surgeon MP 12/03/2021 Last OV-11/30/2022 Next OV if available 06/22/2023 Date of onset: 5 days ago Location: [ ] RUQ, [ ] RLQ, [ ] LUQ, [ ] LLQ, [ x ] Epigastric. Intensity on scale from 0-10 : 8 [if greater than 6, verbal notification to provider] Description of Pain: [ xx [ sharp, [ ] dull, [ ] stabbing, [ xx ] cramping, [ ] aching. [ ] constant Date of last bowel movement: 02/16/2023 Describe bowel movement: [ ] normal, [ x ] diarrhea or [ ] Constipation Color of bowel movement: [ xx ] brown [ ] black tarry [ ] maroon [ ] with bright red blood Fever?: [ ] Yes [ x ] No Able to drink liquids without vomiting :[ ] Yes [ xx ] No sometimes vomits Able to eat solid food without vomiting: [ ] Yes [ xx ] No sometime vomit Pain become worse with eating or drinking? yes Gallbladder still in place? [ xx ] Yes or [ ] No. Still taking PPI? [ ] Yes or [ xx ] No. Was prescribed Protonix at ED 02/15/2023 If yes, frequency: [ ] once or [ ] twice daily. Xx TID Symptoms of esophageal reflux?: no Do you smoke, drink alcohol, caffeine or use NSAIDS? no Surgery with in last month: No If yes: Incision: Positive red answers verbally delivered to ESCROW MANAGER or designee Message routed to CODI or designee General triage directions: If pt calling for the second time with C/O abd pain, pt given apt and DW CODI if need urgent slot that is not available. Notify FD/PAR apt for chart prep Pain is common in left side for Shahnaz and can be normal on the right side for Sleeve Pain is normal in the absence of any fever, n/v/d/c, and inadequate fluid intake Usually described as burning, searing, stabbing, ripping, tugging or pinching Pain made worse with movement, usually laying to sitting, sitting to standing, etc Pain is a sudden onset, lasting about a week and will quickly resolve Take pain meds as ordered (no additional narcotics will be given without appt). If out of narcotic given in the hospital, will need to take Tylenol. Apply ice/heat to site as comfortable Continue to ambulate as this will continue to help reduce the risk of DVT and pneumonia. Call the office with worsening symptoms or with any further questions or concerns [id number] Discharge instructions* Discharge Instructions* GREG Lawrence CNP - 02/15/2023 3:14 PM EST Increase your Protonix to twice a day, call Dr. Cabello in the morning * Attachments The following attachments cannot be sent through Care Everywhere. * Abdominal Pain, Adult ED (Honduran) documented in this [facility]11-05-2023 Emergency department Note* GREG Lawrence CNP - 02/15/2023 11:16 AM EST EMERGENCY DEPARTMENT ENCOUNTER Pt Name: Sophie Hicks Birthdate 1965 Date of evaluation: 02/15/2023 ED Provider: GREG Lawrence CNP I have evaluated this patient on my own, per my scope of practice with an attending physician available for consultation. CHIEF COMPLAINT Chief Complaint Patient presents with Abdominal Pain Pt states any time he tries to eat he is getting mid abd pain, he fells bloated. Had gastric bypasssx about 1 1/2 ago. HISTORY OF PRESENT ILLNESS (Location/Symptom, Timing/Onset, Context/Setting, Quality, Duration, Modifying Factors, Severity) Note limiting factors. I wore appropriate PPE for the entirety of this encounter. HPI Sophie Hicks is a 57 y.o. who presents to the emergency department with chief complaint of with upper abdominal pain every time he eats. States he feels bloated. States he had gastric bypass a year and a half ago by Dr. Cabello. Denies fevers or chills chest pain shortness of breath denies blood in the stool. Prior appendectomy and gastric bypass surgery. Nursing Notes were reviewed. Limitations to history: None Outside historians: None REVIEW OF SYSTEMS Review of Systems Constitutional: Negative for activity change, appetite change, chills and fever. HENT: Negative for congestion, nosebleeds, postnasal drip, sore throat and trouble swallowing. Eyes: Negative for pain and visual disturbance. Respiratory: Negative for cough and shortness of breath. Cardiovascular: Negative for chest pain. Gastrointestinal: Positive for abdominal pain. Negative for blood in stool, constipation, nausea and vomiting. Genitourinary: Negative for dysuria, flank pain, hematuria, penile discharge, scrotal swelling and testicular pain. Musculoskeletal: Negative for arthralgias, back pain and myalgias. Skin: Negative for rash and wound. Neurological: Negative for dizziness, syncope, weakness and light-headedness. Psychiatric/Behavioral: Negative for agitation and confusion. All other systems reviewed and are negative. Pertinent positives and negatives as per HPI. PAST MEDICAL HISTORY Past Medical History: Diagnosis Date Abdominal pain Atrial fibrillation (HCC) Back pain Benign essential HTN 01/29/2015 Blood circulation, collateral CAD (coronary artery disease) mild - dx on cath - neg stress Cerebral artery occlusion with cerebral infarction (HCC) Chronic kidney disease COPD (chronic obstructive pulmonary disease) ([facility]) COVID-19 05/03 COVID-19 vaccine series completed 09/25/2020 Moderna COVID-19 vaccine series completed 12/04/2020 BOOSTER CS (cervical spondylosis) 12/25/2004 CERVICAL SPINE DJD Difficulty sleeping Dizziness GERD (gastroesophageal reflux disease) History of colonic polyps 06/21/2013 repeat 2019 Hyperlipidemia Insomnia 08/15/2014 Joint pain, hip Joint pain, knee Memory difficulties Muscle weakness Peripheral polyneuropathy 09/30/2020 Shortness of breath at rest Sleep apnea Snoring SOBOE (shortness of breath on exertion) Type 2 diabetes mellitus (HCC) 03/19/2021 SURGICAL HISTORY Past Surgical History: Procedure Laterality Date APPENDECTOMY BARIATRIC SURGERY 12/03/2021 Dr. Trevino CARDIAC CATHETERIZATION 12/17/2013 NORMAL CORONARY ARTERIES AND LVEF. COLONOSCOPY COLONOSCOPY 2020 CYSTOSCOPY 10/26/2020 CYSTOSCOPY 11/19/2020 NECK SURGERY Posterior cervical fusion ROTATOR CUFF REPAIR Bilateral UPPER GASTROINTESTINAL ENDOSCOPY 01/24/2021 Dr. Cabello CURRENT MEDICATIONS Previous Medications ADVAIR DISKUS 250-50 MCG/ACT AEROSOL POWDER INHALE 1 PUFF INTO THE LUNGS TWICE DAILY ALPRAZOLAM (XANAX) 1 MG TABLET Take 1 mg by mouth every 24 hours as needed. ASPIRIN 81 MG CHEWABLE TABLET Chew 81 mg daily. ASPIRIN 81 MG EC TABLET 81 mg daily. ATORVASTATIN (LIPITOR) 80 MG TABLET Take 80 mg by mouth daily. B-12 MICROLOZENGE 500 MCG SUBLINGUAL TABLET dissolve 1 tablet under the tongue once daily BACITRACIN 500 UNIT/GM OINTMENT APPLY TOPICALLY TO AFFECTED AREAS twice a day BACLOFEN (LIORESAL) 10 MG TABLET Take 10 mg by mouth. BUMETANIDE (BUMEX) 1 MG TABLET Take 1 mg by mouth in the morning and 1 mg before bedtime. BUPROPION XL (WELLBUTRIN XL) 150 MG 24 HR TABLET Take 150 mg by mouth daily. BUSPIRONE (BUSPAR) 10 MG TABLET Take 10 mg by mouth 2 times daily. CALCIUM CITRATE 250 MG TABLET Take 2 tablets (500 mg) by mouth in the morning and 2 tablets (500 mg) at noon and 2 tablets (500 mg) before bedtime. Take 2 tablets by mouth three times daily.. CONTINUOUS BLOOD GLUC SENSOR (Meridium ALEXANDRA 2 SENSOR) [facility] USE DIRECTED; CHANGE SENSOR EVERY 14 DAYS CYCLOPHOSPHAMIDE (CYTOXAN) 50 MG CAPSULE 150 mg. DICLOFENAC SODIUM (VOLTAREN) 1 % GEL apply 2 grams to affected area four times a day DICYCLOMINE (BENTYL) 10 MG CAPSULE Take 10 mg by mouth in the morning and 10 mg at noon and 10 mg in the evening and 10 mg before bedtime. EMOLLIENT (AQUAPHOR ADVANCED THERAPY) OINTMENT ERGOCALCIFEROL (VITAMIN D2) 1.25 MG (59934 UT) CAPSULE take 1 capsule by mouth every week for 8 doses FAMOTIDINE (PEPCID) 20 MG TABLET every 12 hours. FLUTICASONE (FLONASE) 50 MCG/ACT NASAL SPRAY Every 24 hours. FUROSEMIDE (LASIX) 40 MG TABLET Take 40 mg by mouth in the morning and 40 mg before bedtime. GABAPENTIN (NEURONTIN) 300 MG CAPSULE Take 600 mg by mouth 3 times daily. HYDROXYZINE PAMOATE (VISTARIL) 25 MG CAPSULE Take 25 mg by mouth in the morning and 25 mg before bedtime. IBUPROFEN 600 MG TABLET take 1 tablet by mouth three times a day if needed with food or milk for 10days LEVOTHYROXINE (SYNTHROID, LEVOXYL) 75 MCG TABLET METHOCARBAMOL (ROBAXIN) 500 MG TABLET Take 1.5 tablets (750 mg) by mouth every 8 hours as needed for muscle spasms for up to 5 days. METOLAZONE (ZAROXOLYN) 2.5 MG TABLET MUPIROCIN (BACTROBAN) 2 % OINTMENT NYSTATIN (MYCOSTATIN) 245949 UNIT/GM POWDER Apply 1 Application topically 2 times daily. Apply topically to affected area two times daily. ONDANSETRON ODT (ZOFRAN-ODT) 4 MG DISINTEGRATING TABLET OXYCODONE-ACETAMINOPHEN (PERCOCET) 5-325 MG TABLET Take 1 tablet by mouth 2 times daily. PANTOPRAZOLE (PROTONIX) 40 MG EC TABLET Take 40 mg by mouth daily. PAROXETINE (PAXIL) 20 MG TABLET Take 20 mg by mouth every morning. POTASSIUM CHLORIDE CR (KLOR-CON M20) 20 MEQ ER TABLET as needed. PREGABALIN (LYRICA) 150 MG CAPSULE Take 150 mg by mouth in the morning and 150 mg before bedtime. PROMETHAZINE (PHENERGAN) 12.5 MG TABLET Take 12.5 mg by mouth. SENNA-DOCUSATE SODIUM (SENOKOT-S) 8.6-50 MG TABLET 1-2 tab(s) SERTRALINE (ZOLOFT) 50 MG TABLET Take 50 mg by mouth daily. SILDENAFIL (REVATIO) 20 MG TABLET take 1-5 tablets BY MOUTH NEEDED SILDENAFIL (VIAGRA) 100 MG TABLET Every 24 hours. TAMSULOSIN (FLOMAX) 0.4 MG 24 HR CAPSULE Take 0.4 mg by mouth daily. TORSEMIDE (DEMADEX) 20 MG TABLET 20 mg. TRAMADOL ER (ULTRAM-ER) 300 MG 24 HR TABLET take 0.5 tablet by mouth twice a day TRIAMCINOLONE (KENALOG) 0.1 % CREAM APPLY TO THE AFFECTED AREAS OF LOWER LEGS TWICE DAILY FOR 2 WEEKS... (REFER TO PRESCRIPTION NOTES). VENTOLIN HFA 108 (90 BASE) MCG/ACT INHALER Inhale 2 puffs every 6 hours as needed. ZINC GLUCONATE 50 MG TABLET Take 50 mg by mouth daily. ALLERGIES Iodinated contrast media and Nsaids FAMILY HISTORY Family History Problem Relation Name Age of Onset Osteoarthritis Mother Lung cancer Mother smoker Coronary artery disease Other SOCIAL HISTORY Social History Socioeconomic History Marital status: Tobacco Use Smoking status: Never Smokeless tobacco: Never Substance and Sexual Activity Alcohol use: Never Drug use: No SCREENINGS PHYSICAL EXAM ED Triage Vitals [02/15/23 1121] Temp Heart Rate Resp BP 36.7 C (98.1 F) 81 16 (!) 143/82 SpO2 Temp Source Heart Rate Source Patient Position 95 % Temporal Monitor -- BP Location FiO2 (%) -- -- Physical Exam Vitals and nursing note reviewed. Constitutional: General: He is not in acute distress. Appearance: Normal appearance. He is normal weight. He is not ill-appearing or toxic-appearing. HENT: Head: Normocephalic and atraumatic. Right Ear: External ear normal. Left Ear: External ear normal. Mouth/Throat: Mouth: Mucous membranes are moist. Pharynx: Oropharynx is clear. Eyes: Extraocular Movements: Extraocular movements intact. Conjunctiva/sclera: Conjunctivae normal. Pupils: Pupils are equal, round, and reactive to light. Cardiovascular: Comments: Regular rate and rhythm, normal S1-S2, no murmurs noted. Radial pulses 2+ and symmetric. Pulmonary: Effort: Pulmonary effort is normal. No respiratory distress. Breath sounds: Normal breath sounds. No stridor. No wheezing or rhonchi. Abdominal: Comments: The abdomen is soft and nondistended, there is mild tenderness in the epigastrium withoutguarding or rebound tenderness, bowel sounds are normal. Musculoskeletal: General: No swelling, tenderness, deformity or signs of injury. Normal range of motion. Cervical back: Normal range of motion and neck supple. No rigidity or tenderness. Lymphadenopathy: Cervical: No cervical adenopathy. Skin: General: Skin is warm and dry. Capillary Refill: Capillary refill takes less than 2 seconds. Coloration: Skin is not jaundiced or pale. Findings: No bruising or erythema. Neurological: General: No focal deficit present. Mental Status: He is alert and oriented to person, place, and time. Mental status is at baseline. Cranial Nerves: No cranial nerve deficit. Sensory: No sensory deficit. Motor: No weakness. Coordination: Coordination normal. Psychiatric: Mood and Affect: Mood normal. DIAGNOSTIC RESULTS Procedures/EKG: EKG was reviewed by myself. Physician EKG interpretation can be found in [facility] RADIOLOGY (Per Emergency Physician): Interpretation per the Radiologist below, if available at the time of this note: CT abdomen pelvis wo IV contrast Final Result Normal examination. Report Dictated on Electronically Signed By: Artem Kruse MD Electronically Signed Date/Time: 02/15/2023 3:11 PM EST ED BEDSIDE ULTRASOUND: Performed by ED Physician - none LABS: Labs Reviewed COMPREHENSIVE METABOLIC PANEL - Abnormal Result Value SODIUM 139 POTASSIUM 4.1 CHLORIDE 106 CARBON DIOXIDE 25 ANION GAP 8 UREA NITROGEN 14 CREATININE 1.40 (*) GLUCOSE 104 (*) CALCIUM 8.9 AST (SGOT) 32 ALT 20 ALKALINE PHOSPHATASE 72 ALBUMIN 4.2 BILIRUBIN, TOTAL 0.6 TOTAL PROTEIN 7.3 eGFR 57.9 (*) CBC (HEMOGRAM) - Abnormal Auto WBC 6.3 RBC 4.92 Hemoglobin 14.1 Hematocrit 42.5 MCV 86.4 MCH 28.6 MCHC 33.1 RDW 13.8 Platelets 99 (*) MPV 6.6 (*) LIPASE - Normal LIPASE 72 All other labs were within normal range or not returned as of this dictation. EMERGENCY DEPARTMENT COURSE and DIFFERENTIAL DIAGNOSIS/MDM: Vitals: Vitals: 02/15/23 1121 02/15/23 1129 02/15/23 1310 02/15/23 1501 BP: (!) 143/82 (!) 140/87 105/75 Pulse: 81 80 68 Resp: 16 16 16 Temp: 36.7 C (98.1 F) TempSrc: Temporal SpO2: 95% 96% 96% Weight: 127 kg (280 lb) Height: 1.854 m (6' 1) Diagnoses as of 02/15/23 1515 Epigastric pain The patient presented with chief complaint of with chief complaint of with upper abdominal pain every time he eats. States he feels bloated. States he had gastric bypass a year and a half ago by Dr. Cabello. Denies fevers or chills chest pain shortness of breath denies blood in the stool. Prior appendectomy and gastric bypass surgery.. The differential diagnosis associated with this patient's presentation includes GERD, gastritis, peptic ulcer disease, pouch perforation, cholelithiasis, cholecystitis, pancreatitis. Our workup consisted of ordering/reviewing: CBC, CMP, lipase, CT abdomen pelvis with oral contrast. Diagnostic tests considered but not performed: None To aid in management, I performed an independent interpretation of none. I discussed their care with none. Consideration for escalation of care with: Right upper quadrant ultrasound, EKG, further work-up, Ihad a long conversation with the patient in regards of his symptoms it hurts when he eats he is on Protonix once a day he likely needs to have an EGD done and I recommended calling his bariatric surgeon in the morning CT shows no pathology that explains this no contrast x-ray of a station, he will be discharged do Protonix twice a day and Carafate and follow-up with his bariatric surgeon Dr. Cabello.. The patient will be Discharged. Patient is in agreement with this plan. Medications sodium chloride 0.9 % infusion (125 mL/hr IntraVENous New Bag 02/15/23 1137) morphine injection 4 mg (4 mg IntraVENous Given 02/15/23 113) ondansetron (Zofran) injection 4 mg (4 mg IntraVENous Given 02/15/23 113) diatrizoate meglumine-sodium (Gastrografin) 66-10 % solution 15 mL (15 mL Oral Given 02/15/23 1150) HYDROmorphone (Dilaudid) injection 1 mg (1 mg IntraVENous Given 02/15/23 1320) REVAL: CRITICAL CARE TIME None CONSULTS: None PROCEDURES: Unless otherwise noted below, none Procedures Patients symptoms are consistent with sepsis, severe sepsis, or septic shock (If yes use .sepsiscoremeasure): no FINAL IMPRESSION 1. Epigastric pain DISPOSITION Discharge 02/15/2023 03:14:16 PM PATIENT REFERRED TO: Louisa Cabello, [place] [id number] Call in 1 day DISCHARGE MEDICATIONS: New Prescriptions SUCRALFATE (CARAFATE) 1 GM/10ML SUSPENSION Take 10 mL (1 g) by mouth 3 times daily for 14 days. (Comment: Please note this report has been produced using speech recognition software and may contain errors related to that system including errors in grammar, punctuation, and spelling, as well as words and phrases that may be inappropriate. If there are any questions or concerns please feel freeto contact the dictating provider for clarification.) GREG Lawrence CNP (electronically signed) Emergency Medicine Provider GREG Lawrence CNP 02/15/23 1516 documented in this [facility]11-05-2023 Physician Emergency department Note* GREG Lawrence CNP - 02/15/2023 11:16 AM EST EMERGENCY DEPARTMENT ENCOUNTER Pt Name: Sophie Hicks Birthdate 1965 Date of evaluation: 02/15/2023 ED Provider: GREG Lawrence CNP I have evaluated this patient on my own, per my scope of practice with an attending physician available for consultation. CHIEF COMPLAINT Chief Complaint Patient presents with Abdominal Pain Pt states any time he tries to eat he is getting mid abd pain, he fells bloated. Had gastric bypasssx about 1 1/2 ago. HISTORY OF PRESENT ILLNESS (Location/Symptom, Timing/Onset, Context/Setting, Quality, Duration, Modifying Factors, Severity) Note limiting factors. I wore appropriate PPE for the entirety of this encounter. HPI Sophie Hicks is a 57 y.o. who presents to the emergency department with chief complaint of with upper abdominal pain every time he eats. States he feels bloated. States he had gastric bypass a year and a half ago by Dr. Cabello. Denies fevers or chills chest pain shortness of breath denies blood in the stool. Prior appendectomy and gastric bypass surgery. Nursing Notes were reviewed. Limitations to history: None Outside historians: None REVIEW OF SYSTEMS Review of Systems Constitutional: Negative for activity change, appetite change, chills and fever. HENT: Negative for congestion, nosebleeds, postnasal drip, sore throat and trouble swallowing. Eyes: Negative for pain and visual disturbance. Respiratory: Negative for cough and shortness of breath. Cardiovascular: Negative for chest pain. Gastrointestinal: Positive for abdominal pain. Negative for blood in stool, constipation, nausea and vomiting. Genitourinary: Negative for dysuria, flank pain, hematuria, penile discharge, scrotal swelling and testicular pain. Musculoskeletal: Negative for arthralgias, back pain and myalgias. Skin: Negative for rash and wound. Neurological: Negative for dizziness, syncope, weakness and light-headedness. Psychiatric/Behavioral: Negative for agitation and confusion. All other systems reviewed and are negative. Pertinent positives and negatives as per HPI. PAST MEDICAL HISTORY Past Medical History: Diagnosis Date Abdominal pain Atrial fibrillation (HCC) Back pain Benign essential HTN 01/29/2015 Blood circulation, collateral CAD (coronary artery disease) mild - dx on cath - neg stress Cerebral artery occlusion with cerebral infarction (HCC) Chronic kidney disease COPD (chronic obstructive pulmonary disease) ([facility]) COVID-19 05/03 COVID-19 vaccine series completed 09/25/2020 Moderna COVID-19 vaccine series completed 12/04/2020 BOOSTER CS (cervical spondylosis) 12/25/2004 CERVICAL SPINE DJD Difficulty sleeping Dizziness GERD (gastroesophageal reflux disease) History of colonic polyps 06/21/2013 repeat 2019 Hyperlipidemia Insomnia 08/15/2014 Joint pain, hip Joint pain, knee Memory difficulties Muscle weakness Peripheral polyneuropathy 09/30/2020 Shortness of breath at rest Sleep apnea Snoring SOBOE (shortness of breath on exertion) Type 2 diabetes mellitus ([facility]) 03/19/2021 SURGICAL HISTORY Past Surgical History: Procedure Laterality Date APPENDECTOMY BARIATRIC SURGERY 12/03/2021 Dr. Trevino CARDIAC CATHETERIZATION 12/17/2013 NORMAL CORONARY ARTERIES AND LVEF. COLONOSCOPY COLONOSCOPY 2020 CYSTOSCOPY 10/26/2020 CYSTOSCOPY 11/19/2020 NECK SURGERY Posterior cervical fusion ROTATOR CUFF REPAIR Bilateral UPPER GASTROINTESTINAL ENDOSCOPY 01/24/2021 Dr. Cabello CURRENT MEDICATIONS Previous Medications ADVAIR DISKUS 250-50 MCG/ACT AEROSOL POWDER INHALE 1 PUFF INTO THE LUNGS TWICE DAILY ALPRAZOLAM (XANAX) 1 MG TABLET Take 1 mg by mouth every 24 hours as needed. ASPIRIN 81 MG CHEWABLE TABLET Chew 81 mg daily. ASPIRIN 81 MG EC TABLET 81 mg daily. ATORVASTATIN (LIPITOR) 80 MG TABLET Take 80 mg by mouth daily. B-12 MICROLOZENGE 500 MCG SUBLINGUAL TABLET dissolve 1 tablet under the tongue once daily BACITRACIN 500 UNIT/GM OINTMENT APPLY TOPICALLY TO AFFECTED AREAS twice a day BACLOFEN (LIORESAL) 10 MG TABLET Take 10 mg by mouth. BUMETANIDE (BUMEX) 1 MG TABLET Take 1 mg by mouth in the morning and 1 mg before bedtime. BUPROPION XL (WELLBUTRIN XL) 150 MG 24 HR TABLET Take 150 mg by mouth daily. BUSPIRONE (BUSPAR) 10 MG TABLET Take 10 mg by mouth 2 times daily. CALCIUM CITRATE 250 MG TABLET Take 2 tablets (500 mg) by mouth in the morning and 2 tablets (500 mg) at noon and 2 tablets (500 mg) before bedtime. Take 2 tablets by mouth three times daily.. CONTINUOUS BLOOD GLUC SENSOR (sevenloadYLE ALEXANDRA 2 SENSOR) [facility] USE DIRECTED; CHANGE SENSOR EVERY 14 DAYS CYCLOPHOSPHAMIDE (CYTOXAN) 50 MG CAPSULE 150 mg. DICLOFENAC SODIUM (VOLTAREN) 1 % GEL apply 2 grams to affected area four times a day DICYCLOMINE (BENTYL) 10 MG CAPSULE Take 10 mg by mouth in the morning and 10 mg at noon and 10 mg in the evening and 10 mg before bedtime. EMOLLIENT (AQUAPHOR ADVANCED THERAPY) OINTMENT ERGOCALCIFEROL (VITAMIN D2) 1.25 MG (86009 UT) CAPSULE take 1 capsule by mouth every week for 8 doses FAMOTIDINE (PEPCID) 20 MG TABLET every 12 hours. FLUTICASONE (FLONASE) 50 MCG/ACT NASAL SPRAY Every 24 hours. FUROSEMIDE (LASIX) 40 MG TABLET Take 40 mg by mouth in the morning and 40 mg before bedtime. GABAPENTIN (NEURONTIN) 300 MG CAPSULE Take 600 mg by mouth 3 times daily. HYDROXYZINE PAMOATE (VISTARIL) 25 MG CAPSULE Take 25 mg by mouth in the morning and 25 mg before bedtime. IBUPROFEN 600 MG TABLET take 1 tablet by mouth three times a day if needed with food or milk for 10days LEVOTHYROXINE (SYNTHROID, LEVOXYL) 75 MCG TABLET METHOCARBAMOL (ROBAXIN) 500 MG TABLET Take 1.5 tablets (750 mg) by mouth every 8 hours as needed for muscle spasms for up to 5 days. METOLAZONE (ZAROXOLYN) 2.5 MG TABLET MUPIROCIN (BACTROBAN) 2 % OINTMENT NYSTATIN (MYCOSTATIN) 996943 UNIT/GM POWDER Apply 1 Application topically 2 times daily. Apply topically to affected area two times daily. ONDANSETRON ODT (ZOFRAN-ODT) 4 MG DISINTEGRATING TABLET OXYCODONE-ACETAMINOPHEN (PERCOCET) 5-325 MG TABLET Take 1 tablet by mouth 2 times daily. PANTOPRAZOLE (PROTONIX) 40 MG EC TABLET Take 40 mg by mouth daily. PAROXETINE (PAXIL) 20 MG TABLET Take 20 mg by mouth every morning. POTASSIUM CHLORIDE CR (KLOR-CON M20) 20 MEQ ER TABLET as needed. PREGABALIN (LYRICA) 150 MG CAPSULE Take 150 mg by mouth in the morning and 150 mg before bedtime. PROMETHAZINE (PHENERGAN) 12.5 MG TABLET Take 12.5 mg by mouth. SENNA-DOCUSATE SODIUM (SENOKOT-S) 8.6-50 MG TABLET 1-2 tab(s) SERTRALINE (ZOLOFT) 50 MG TABLET Take 50 mg by mouth daily. SILDENAFIL (REVATIO) 20 MG TABLET take 1-5 tablets BY MOUTH NEEDED SILDENAFIL (VIAGRA) 100 MG TABLET Every 24 hours. TAMSULOSIN (FLOMAX) 0.4 MG 24 HR CAPSULE Take 0.4 mg by mouth daily. TORSEMIDE (DEMADEX) 20 MG TABLET 20 mg. TRAMADOL ER (ULTRAM-ER) 300 MG 24 HR TABLET take 0.5 tablet by mouth twice a day TRIAMCINOLONE (KENALOG) 0.1 % CREAM APPLY TO THE AFFECTED AREAS OF LOWER LEGS TWICE DAILY FOR 2 WEEKS... (REFER TO PRESCRIPTION NOTES). VENTOLIN HFA 108 (90 BASE) MCG/ACT INHALER Inhale 2 puffs every 6 hours as needed. ZINC GLUCONATE 50 MG TABLET Take 50 mg by mouth daily. ALLERGIES Iodinated contrast media and Nsaids FAMILY HISTORY Family History Problem Relation Name Age of Onset Osteoarthritis Mother Lung cancer Mother smoker Coronary artery disease Other SOCIAL HISTORY Social History Socioeconomic History Marital status: Tobacco Use Smoking status: Never Smokeless tobacco: Never Substance and Sexual Activity Alcohol use: Never Drug use: No SCREENINGS PHYSICAL EXAM ED Triage Vitals [02/15/23 1121] Temp Heart Rate Resp BP 36.7 C (98.1 F) 81 16 (!) 143/82 SpO2 Temp Source Heart Rate Source Patient Position 95 % Temporal Monitor -- BP Location FiO2 (%) -- -- Physical Exam Vitals and nursing note reviewed. Constitutional: General: He is not in acute distress. Appearance: Normal appearance. He is normal weight. He is not ill-appearing or toxic-appearing. HENT: Head: Normocephalic and atraumatic. Right Ear: External ear normal. Left Ear: External ear normal. Mouth/Throat: Mouth: Mucous membranes are moist. Pharynx: Oropharynx is clear. Eyes: Extraocular Movements: Extraocular movements intact. Conjunctiva/sclera: Conjunctivae normal. Pupils: Pupils are equal, round, and reactive to light. Cardiovascular: Comments: Regular rate and rhythm, normal S1-S2, no murmurs noted. Radial pulses 2+ and symmetric. Pulmonary: Effort: Pulmonary effort is normal. No respiratory distress. Breath sounds: Normal breath sounds. No stridor. No wheezing or rhonchi. Abdominal: Comments: The abdomen is soft and nondistended, there is mild tenderness in the epigastrium withoutguarding or rebound tenderness, bowel sounds are normal. Musculoskeletal: General: No swelling, tenderness, deformity or signs of injury. Normal range of motion. Cervical back: Normal range of motion and neck supple. No rigidity or tenderness. Lymphadenopathy: Cervical: No cervical adenopathy. Skin: General: Skin is warm and dry. Capillary Refill: Capillary refill takes less than 2 seconds. Coloration: Skin is not jaundiced or pale. Findings: No bruising or erythema. Neurological: General: No focal deficit present. Mental Status: He is alert and oriented to person, place, and time. Mental status is at baseline. Cranial Nerves: No cranial nerve deficit. Sensory: No sensory deficit. Motor: No weakness. Coordination: Coordination normal. Psychiatric: Mood and Affect: Mood normal. DIAGNOSTIC RESULTS Procedures/EKG: EKG was reviewed by myself. Physician EKG interpretation can be found in [facility] RADIOLOGY (Per Emergency Physician): Interpretation per the Radiologist below, if available at the time of this note: CT abdomen pelvis wo IV contrast Final Result Normal examination. Report Dictated on Electronically Signed By: Artem Kruse MD Electronically Signed Date/Time: 02/15/2023 3:11 PM EST ED BEDSIDE ULTRASOUND: Performed by ED Physician - none LABS: Labs Reviewed COMPREHENSIVE METABOLIC PANEL - Abnormal Result Value SODIUM 139 POTASSIUM 4.1 CHLORIDE 106 CARBON DIOXIDE 25 ANION GAP 8 UREA NITROGEN 14 CREATININE 1.40 (*) GLUCOSE 104 (*) CALCIUM 8.9 AST (SGOT) 32 ALT 20 ALKALINE PHOSPHATASE 72 ALBUMIN 4.2 BILIRUBIN, TOTAL 0.6 TOTAL PROTEIN 7.3 eGFR 57.9 (*) CBC (HEMOGRAM) - Abnormal Auto WBC 6.3 RBC 4.92 Hemoglobin 14.1 Hematocrit 42.5 MCV 86.4 MCH 28.6 MCHC 33.1 RDW 13.8 Platelets 99 (*) MPV 6.6 (*) LIPASE - Normal LIPASE 72 All other labs were within normal range or not returned as of this dictation. EMERGENCY DEPARTMENT COURSE and DIFFERENTIAL DIAGNOSIS/MDM: Vitals: Vitals: 02/15/23 1121 02/15/23 1129 02/15/23 1310 02/15/23 1501 BP: (!) 143/82 (!) 140/87 105/75 Pulse: 81 80 68 Resp: 16 16 16 Temp: 36.7 C (98.1 F) TempSrc: Temporal SpO2: 95% 96% 96% Weight: 127 kg (280 lb) Height: 1.854 m (6' 1) Diagnoses as of 02/15/23 1515 Epigastric pain The patient presented with chief complaint of with chief complaint of with upper abdominal pain every time he eats. States he feels bloated. States he had gastric bypass a year and a half ago by Dr. Cabello. Denies fevers or chills chest pain shortness of breath denies blood in the stool. Prior appendectomy and gastric bypass surgery.. The differential diagnosis associated with this patient's presentation includes GERD, gastritis, peptic ulcer disease, pouch perforation, cholelithiasis, cholecystitis, pancreatitis. Our workup consisted of ordering/reviewing: CBC, CMP, lipase, CT abdomen pelvis with oral contrast. Diagnostic tests considered but not performed: None To aid in management, I performed an independent interpretation of none. I discussed their care with none. Consideration for escalation of care with: Right upper quadrant ultrasound, EKG, further work-up, Ihad a long conversation with the patient in regards of his symptoms it hurts when he eats he is on Protonix once a day he likely needs to have an EGD done and I recommended calling his bariatric surgeon in the morning CT shows no pathology that explains this no contrast x-ray of a station, he will be discharged do Protonix twice a day and Carafate and follow-up with his bariatric surgeon Dr. Cabello.. The patient will be Discharged. Patient is in agreement with this plan. Medications sodium chloride 0.9 % infusion (125 mL/hr IntraVENous New Bag 02/15/23 113) morphine injection 4 mg (4 mg IntraVENous Given 02/15/23 1137) ondansetron (Zofran) injection 4 mg (4 mg IntraVENous Given 02/15/23 1137) diatrizoate meglumine-sodium (Gastrografin) 66-10 % solution 15 mL (15 mL Oral Given 02/15/23 1150) HYDROmorphone (Dilaudid) injection 1 mg (1 mg IntraVENous Given 02/15/23 1320) REVAL: CRITICAL CARE TIME None CONSULTS: None PROCEDURES: Unless otherwise noted below, none Procedures Patients symptoms are consistent with sepsis, severe sepsis, or septic shock (If yes use .sepsiscoremeasure): no FINAL IMPRESSION 1. Epigastric pain DISPOSITION Discharge 02/15/2023 03:14:16 PM PATIENT REFERRED TO: Louisa Cabello DO [address] [facility] [address] [phone] Call in 1 day DISCHARGE MEDICATIONS: New Prescriptions SUCRALFATE (CARAFATE) 1 GM/10ML SUSPENSION Take 10 mL (1 g) by mouth 3 times daily for 14 days. (Comment: Please note this report has been produced using speech recognition software and may contain errors related to that system including errors in grammar, punctuation, and spelling, as well as words and phrases that may be inappropriate. If there are any questions or concerns please feel freeto contact the dictating provider for clarification.) GREG Lawrence CNP (electronically signed) Emergency Medicine Provider GREG Lawrence CNP 02/15/23 1516 [facility] [id number] History of Present illness Narrative* Louisa Cabello DO - 12/01/2022 8:40 AM EDT Images from the original note were not included. HPI, PHYSICAL EXAMINATION & PLAN POST-OP HPI: Patient here today for 12 month post-weight loss surgery follow up [facility] 12/03/2021 The patient is feeling well. Denies nausea, vomiting, dysphagia, or any GERD Sx. Currently is not on any PPI. Patient states diet and exercise is going fairly well. Currently is eating 65-75 gm/day protein, and is compliant with prescribed multivitamins and supplements. Review of Systems Constitutional: Negative for fatigue and fever. HENT: Negative for congestion and trouble swallowing. Respiratory: Negative for shortness of breath. Cardiovascular: Negative for chest pain. Gastrointestinal: Negative for abdominal distention, abdominal pain, constipation, diarrhea, nauseaand vomiting. Musculoskeletal: Negative for arthralgias. Psychiatric/Behavioral: Negative for agitation. The patient is not nervous/anxious. Vital signs are stable. Labs were Not completed. All labs were: pending Physical Examination: BP (!) 147/77 Pulse 74 Temp 36.2 C (97.2 F) Resp 16 Ht 5' 11.75 (1.822 m) Wt (!) 302 lb 12.8 oz (137 kg) BMI 41.35 kg/m General: This patient is awake, alert, and oriented, and is in no apparent distress. Abdomen: Obese, soft, non-tender, non-distended without masses/ No evidence of abdominal hernia / Incisions consistent with previous surgeries. Extremities: No cyanosis, clubbing or edema/ No calf tenderness/No restrictions of movement, is ambulatory without assistance. Neurological: Intact x 4 extremities, no focal deficits notes. Skin: Rash noted under panis Rectal: Deferred Current Medications: Patient's Medications New Prescriptions NYSTATIN (MYCOSTATIN) [id number] UNIT/GM POWDER Apply 1 Application topically 2 times daily. Apply topically to affected area two times daily. Previous Medications ADVAIR DISKUS 250-50 MCG/ACT AEROSOL POWDER INHALE 1 PUFF INTO THE LUNGS TWICE DAILY ALPRAZOLAM (XANAX) 1 MG TABLET Take 1 mg by mouth every 24 hours as needed. ASPIRIN 81 MG EC TABLET 81 mg daily. ATORVASTATIN (LIPITOR) 80 MG TABLET Take 80 mg by mouth daily. B-12 MICROLOZENGE 500 MCG SUBLINGUAL TABLET dissolve 1 tablet under the tongue once daily BACLOFEN (LIORESAL) 10 MG TABLET Take 10 mg by mouth. BUMETANIDE (BUMEX) 1 MG TABLET Take 1 mg by mouth in the morning and 1 mg before bedtime. BUPROPION XL (WELLBUTRIN XL) 150 MG 24 HR TABLET Take 150 mg by mouth daily. CALCIUM CITRATE 250 MG TABLET Take 2 tablets (500 mg) by mouth in the morning and 2 tablets (500 mg) at noon and 2 tablets (500 mg) before bedtime. Take 2 tablets by mouth three times daily.. CYCLOPHOSPHAMIDE (CYTOXAN) 50 MG CAPSULE 150 mg. DICLOFENAC SODIUM (VOLTAREN) 1 % GEL apply 2 grams to affected area four times a day DICYCLOMINE (BENTYL) 10 MG CAPSULE Take 10 mg by mouth in the morning and 10 mg at noon and 10 mg in the evening and 10 mg before bedtime. EMOLLIENT (AQUAPHOR ADVANCED THERAPY) OINTMENT ERGOCALCIFEROL (VITAMIN D2) 1.25 MG (09470 UT) CAPSULE take 1 capsule by mouth every week for 8 doses FAMOTIDINE (PEPCID) 20 MG TABLET every 12 hours. FLUTICASONE (FLONASE) 50 MCG/ACT NASAL SPRAY Every 24 hours. FUROSEMIDE (LASIX) 40 MG TABLET Take 40 mg by mouth in the morning and 40 mg before bedtime. GABAPENTIN (NEURONTIN) 300 MG CAPSULE Take 600 mg by mouth 3 times daily. HYDROXYZINE PAMOATE (VISTARIL) 25 MG CAPSULE Take 25 mg by mouth in the morning and 25 mg before bedtime. LEVOTHYROXINE (SYNTHROID, LEVOXYL) 75 MCG TABLET METHOCARBAMOL (ROBAXIN) 500 MG TABLET Take 1.5 tablets (750 mg) by mouth every 8 hours as needed for muscle spasms for up to 5 days. METOLAZONE (ZAROXOLYN) 2.5 MG TABLET ONDANSETRON ODT (ZOFRAN-ODT) 4 MG DISINTEGRATING TABLET PANTOPRAZOLE (PROTONIX) 40 MG EC TABLET Take 40 mg by mouth daily. PAROXETINE (PAXIL) 20 MG TABLET Take 20 mg by mouth every morning. POLYETHYLENE GLYCOL, PEG, 3350 (GLYCOLAX) 17 GM/SCOOP POWDER TAKE 17 G BY MOUTH DAILY NEEDED (TAKE ONCE DAILY NEEDED FOR CONSTIPATION) POTASSIUM CHLORIDE CR (KLOR-CON M20) 20 MEQ ER TABLET as needed. PREGABALIN (LYRICA) 150 MG CAPSULE Take 150 mg by mouth in the morning and 150 mg before bedtime. SENNA-DOCUSATE SODIUM (SENOKOT-S) 8.6-50 MG TABLET 1-2 tab(s) SILDENAFIL (REVATIO) 20 MG TABLET take 1-5 tablets BY MOUTH NEEDED SILDENAFIL (VIAGRA) 100 MG TABLET Every 24 hours. TAMSULOSIN (FLOMAX) 0.4 MG 24 HR CAPSULE Take 0.4 mg by mouth daily. TORSEMIDE (DEMADEX) 20 MG TABLET 20 mg. TRAMADOL ER (ULTRAM-ER) 300 MG 24 HR TABLET take 0.5 tablet by mouth twice a day TRIAMCINOLONE (KENALOG) 0.1 % CREAM APPLY TO THE AFFECTED AREAS OF LOWER LEGS TWICE DAILY FOR 2 WEEKS... (REFER TO PRESCRIPTION NOTES). VENTOLIN HFA 108 (90 BASE) MCG/ACT INHALER Inhale 2 puffs every 6 hours as needed. Modified Medications No medications on file Discontinued Medications No medications on file Medications ordered during this encounter: Outpatient Encounter Medications as of 12/01/2022 Medication Sig Dispense Refill Advair Diskus 250-50 MCG/ACT aerosol powder INHALE 1 PUFF INTO THE LUNGS TWICE DAILY 1 each 10 ALPRAZolam (Xanax) 1 MG tablet Take 1 mg by mouth every 24 hours as needed. aspirin 81 MG EC tablet 81 mg daily. atorvastatin (Lipitor) 80 MG tablet Take 80 mg by mouth daily. B-12 Microlozenge 500 MCG sublingual tablet dissolve 1 tablet under the tongue once daily baclofen (Lioresal) 10 MG tablet Take 10 mg by mouth. bumetanide (Bumex) 1 MG tablet Take 1 mg by mouth in the morning and 1 mg before bedtime. buPROPion XL (Wellbutrin XL) 150 MG 24 hr tablet Take 150 mg by mouth daily. calcium citrate 250 MG tablet Take 2 tablets (500 mg) by mouth in the morning and 2 tablets (500 mg) at noon and 2 tablets (500 mg) before bedtime. Take 2 tablets by mouth three times daily.. 180 tablet 3 cyclophosphamide (Cytoxan) 50 MG capsule 150 mg. Diclofenac Sodium (Voltaren) 1 % gel apply 2 grams to affected area four times a day dicyclomine (Bentyl) 10 MG capsule Take 10 mg by mouth in the morning and 10 mg at noon and 10 mg in the evening and 10 mg before bedtime. Emollient (Aquaphor Advanced Therapy) ointment ergocalciferol (Vitamin D2) 1.25 MG (56453 UT) capsule take 1 capsule by mouth every week for 8 doses famotidine (Pepcid) 20 MG tablet every 12 hours. fluticasone (Flonase) 50 MCG/ACT nasal spray Every 24 hours. furosemide (Lasix) 40 MG tablet Take 40 mg by mouth in the morning and 40 mg before bedtime. gabapentin (Neurontin) 300 MG capsule Take 600 mg by mouth 3 times daily. hydrOXYzine pamoate (Vistaril) 25 MG capsule Take 25 mg by mouth in the morning and 25 mg before bedtime. levothyroxine (Synthroid, Levoxyl) 75 MCG tablet metOLazone (Zaroxolyn) 2.5 MG tablet ondansetron ODT (Zofran-ODT) 4 MG disintegrating tablet pantoprazole (ProtoNix) 40 MG EC tablet Take 40 mg by mouth daily. PARoxetine (Paxil) 20 MG tablet Take 20 mg by mouth every morning. polyethylene glycol, PEG, 3350 (Glycolax) 17 GM/SCOOP powder TAKE 17 G BY MOUTH DAILY NEEDED (TAKE ONCE DAILY NEEDED FOR CONSTIPATION) 510 g 0 potassium chloride CR (Klor-Con M20) 20 MEQ ER tablet as needed. senna-docusate sodium (Senokot-S) 8.6-50 MG tablet 1-2 tab(s) sildenafil (Revatio) 20 MG tablet take 1-5 tablets BY MOUTH NEEDED sildenafil (Viagra) 100 MG tablet Every 24 hours. tamsulosin (Flomax) 0.4 MG 24 hr capsule Take 0.4 mg by mouth daily. torsemide (Demadex) 20 MG tablet 20 mg. traMADol ER (Ultram-ER) 300 MG 24 hr tablet take 0.5 tablet by mouth twice a day triamcinolone (Kenalog) 0.1 % cream APPLY TO THE AFFECTED AREAS OF LOWER LEGS TWICE DAILY FOR 2 WEEKS... (REFER TO PRESCRIPTION NOTES). Ventolin HFA 108 (90 Base) MCG/ACT inhaler Inhale 2 puffs every 6 hours as needed. methocarbamol (Robaxin) 500 MG tablet Take 1.5 tablets (750 mg) by mouth every 8 hours as needed for muscle spasms for up to 5 days. 20 tablet 0 nystatin (Mycostatin) 515803 UNIT/GM powder Apply 1 Application topically 2 times daily. Apply topically to affected area two times daily. 60 g 2 pregabalin (Lyrica) 150 MG capsule Take 150 mg by mouth in the morning and 150 mg before bedtime. No facility-administered encounter medications on file as of 12/01/2022. Orders Placed This Encounter Procedures Zinc Folate Iron Ferritin Magnesium Vitamin D Deficiency Screening (Vit D 25) Vitamin B12 Vitamin B1, whole blood Lipid panel Comprehensive metabolic panel CBC Ambulatory referral to Plastic Surgery Visit Diagnoses: 1. Hyperlipidemia, unspecified hyperlipidemia type 2. GERD without esophagitis 3. Hypothyroidism, unspecified type 4. Morbid obesity with BMI of 40.0-44.9, adult (HCC) 5. Deficiency of multiple nutrient elements 6. Yeast dermatitis Plan: 1). Diet and Exercise: (See RD recommendations) 2). Continue to monitor for signs and symptoms of GERD / OFF PPI 3). Labs: pending 4). Psych concerns : No 5). Excessive skin concerns: No - will discuss at 18 month visit once weight stability achieved. 6). If patient is a woman of childrearing age- 18-50. We discussed the importance of contraception during the first 12-18 months post op, and we discussed that fertility will increase following the procedure. Advised patient to discuss with her OBGYN regarding contraception. Patient counseled with good understanding verbalized. 7). Weight loss: Post-op Weight Metrics: %EBWL: % EBWL: 29% Weight Change Since Last Visit: Weight Change: -6.6 lbs Weight Change from Highest Pre-op Weight: Total Weight Change: -51.4 lbs 8) Yeast dermatitis - nystatin powder sent to pharmacy / plastics referral sent The patient met with the dietitian today to review our vitamin and protein recommendations. Increase activity as recommended, the wounds are healed, no evidence of abdominal wall hernias. No nausea vomiting or dysphagia noted. Appropriate bowel function, discussed with her regarding contacting us for any questions or concerns. The lab slip was signed for the next visit, labs from n/a were reviewed and are within normal limits. Follow-up 18 months postop. I personally performed the evaluation and management of Sophie Jordyn Hicks in the development of a treatment plan for this patient. I personally interviewed the patient and performed an individual physical examination. In addition, I discussed the patient's condition and treatment options with them. I have also reviewed and agree with the past medical, family and social history unless otherwise noted.All of the patient's questions were answered. I discussed/counseled the patient regarding the postoperative care plan for this patient. The patient was seen and examined independently and relevant data reviewed by myself. A full chart review wasperformed. Patient Care Team: Jenni Moser APRN as PCP - General Louisa Cabello DO as Surgeon (General Surgery) * Teresa Jay - 12/01/2022 8:40 AM EDT [facility] PROGRESS NOTE POST WEIGHT LOSS SURGERY FOLLOW UP Patient: Sophie Hicks Service Date: 12/01/2022 Patient is 12 month(s) s/p Sleeve Gastrectomy Today's Metrics: Post-Surgical Weight Loss Date: 12/01/22 Height: 5' 11.75 (182.2 cm) Weight: 302 lb 12.8 oz (137 kg) BMI: 41.35 Weight Change: -6.6 lbs Total Weight Change: -51.4 lbs % EBWL: 29% Comments: 12m Pre-op Weight Metrics: Pre-Surgical Weight Loss Initial Height: 6' 0.25 (183.5 cm) Initial Weight: 376 lb 6.4 oz (171 kg) Initial BMI: 50.69 [place] Body Weight: 176 lb 8 oz (80.1 kg) Surgery Date: 12/03/21 Pre-Surgical Height: 6' 0.25 (183.5 cm) Pre-Surgical Weight: 354 lb 3.2 oz (161 kg) Pre Surgery BMI: 47.70 Weight to Lose: 177 lb Post-op Weight Metrics: %EBWL: % EBWL: 29% Weight Change Since Last Visit: Weight Change: -6.6 lbs Weight Change from Highest Pre-op Weight: Total Weight Change: -51.4 lbs Patient has the following questions: None Reported Pain: Patient rates pain on scale 0-10 as: 0 Exercise Compliance: Exercising: yes If yes: Type: walking ELLIPTICAL, BIKE Times per week: 5 Min per session: 30-60 Falls Risk Assessment Patient DOES take medications which affect BP or mental status Patient does not have newly prescribed or changed dosage of medications within past 30 days which affect BP or mental status Patient has not fallen in the past 2 months Patient does not demonstrate unsteady gait Patient uses the following ambulatory assistive devices: NONE Patient states the presence of the following traits which increases risk of fall: NONE Patient is not on home O2 Labs Completed: yes - If NO, patient instructed to get labs drawn today or NATASHA If YES: Labs completed at [facility]? yes If yes see Labs Tab Labs completed at Non-[facility] facility? N/A If yes see Encounters Tab - Orders only - Historical Provider - Date: Completed by: Teresa Thompson * Akanksha Rutledge RD - 12/01/2022 8:40 AM EDT [facility] [place] 12 MONTH POST-OPERATIVE DIETITIAN VISIT Date: 12/01/22 Patient's weight decreased by: -51.4 lbs Patient consumes 5-6 small meals daily -Yes Patient s portions are adequate for current diet: -1 cup Protein requirements discussed- currently consuming 80+ grams protein daily. Current protein sources: Premier, chicken, cheese, yogurt, PB Recommendations: none Fluid requirements discussed. Current Fluid Intake: 64 oz Patient drinks sugar-free, caffeine-free and carbonation-free fluids only. Patient waits 30 minutes before and after meals to drink Exercise activities discussed. Patient is currently exercise. He was reminded that regular exerciseis critical part of a successful outcome following weight loss surgery. -Using bike and elliptical Behavioral/Emotional changes reviewed. Patient does feel comfortable with changes in eating behaviors and associated emotional changes. He was reminded that psychological counseling is available through the [facility] post-operatively. Recent Nutrient Concerns and Vitamin Supplementation Changes: no new labs, off all DM meds, pt is taking recommended vitamins. Notes/Comments: Pt is doing great overall! Pt to call as needed with any issues or concerns that arise. Visit completed by: Akanksha Rutledge RD documented in this encounterSParkview [id number] Telephone encounter Note* Telephone Encounter - Sonja Jane MA - 10/30/2022 10:12 AM EDT Left isaac Atkinson to call and schedule with Jennifer. 10/30/22 dg [id number] Miscellaneous Notes* Telephone Encounter - Sonja Jane MA - 10/30/2022 10:12 AM EDT Left isaac Atkinson to call and schedule with Jennifer. 10/30/22 dg * Telephone Encounter - Irene Rubin RD - 07/17/2022 1:49 PM EDT Patient called and left RD voicemail that he has COVID and will not be able to attend 7M POP tomorrow, 07/18/22. Wants to reschedule at another time when he feels better. * Telephone Encounter - Irene Rubin RD - 07/17/2022 10:04 AM EDT [facility] 12/03/2021- Suhail Attempted to call patient to review nutritional intake over the past 7 months, as patient will not be seeing an RD on 07/18/22 for OV, however went to voicemail. Left message for patient to call back and will also send a Patient[employer] message. documented in this [facility]04-06-2023 Telephone encounter Note* Telephone Encounter - Irene Rubin RD - 07/17/2022 1:49 PM EDT Patient called and left RD voicemail that he has COVID and will not be able to attend 7M POP tomorrow, 07/18/22. Wants to reschedule at another time when he feels better. [id number] Miscellaneous Notes* Telephone Encounter - Irene Rubin RD - 07/17/2022 1:49 PM EDT Patient called and left JESS voicemail that he has COVID and will not be able to attend 7M POP tomorrow, 07/18/22. Wants to reschedule at another time when he feels better. * Telephone Encounter - Irene Rubin RD - 07/17/2022 10:04 AM EDT [facility] 12/03/2021- Suhail Attempted to call patient to review nutritional intake over the past 7 months, as patient will not be seeing an RD on 07/18/22 for OV, however went to voicemail. Left message for patient to call back and will also send a Mychart message. documented in this [facility]04-06-2023 Telephone encounter Note* Telephone Encounter - Irene Rubin RD - 07/17/2022 10:04 AM EDT [facility] 12/03/2021- Suhail Attempted to call patient to review nutritional intake over the past 7 months, as patient will not be seeing an RD on 07/18/22 for OV, however went to voicemail. Left message for patient to call back and will also send a Mychart message. [id number] Hospital Discharge instructions* Discharge Instructions* Sinan Rodriguez MD - 07/03/2022 6:34 PM EDT Did prescribe you nausea medications which she should try to see if this continues helping with symptoms. Stay well-hydrated and can try also [id number] medications to see if this continues helping. If having significant worsening do not hesitate to return for repeat evaluation. May still have symptoms for several days to weeks before completely feeling improved. documented in this [facility]03-23-2023 Emergency department Note* Mann Morrison DO - 07/03/2022 3:16 PM EDT Emergency Department Encounter [facility] ED Patient: Sophie Hicks : 1965 Date of Evaluation: 07/03/2022 ED Supervising Physician: Mann Morrison DO I independently examined and evaluated Sophie Hicks. This will serve as my Supervisory note and shared attestation. I did perform a substantive portion of the visit including all aspects of the Medical Decision Making. I wore appropriate PPE for the entirety of this encounter. In brief, Sophie Hicks is a 56 y.o. male that presents to the emergency department for flulike symptoms. Patient states that he recently was diagnosed with COVID. States that he just does not feel particularly well. States that his whole body aches he states that he does have some questionable shortness of breath denies any nausea no vomiting but does feel unwell. Focused exam: Physical exam was relatively unremarkable, heart lung sounds were normal abdominal exam was negative no lower extremity edema no skin breakdown no other findings noted. Brief ED course/MDM: Patient presents to the emergency department for viral type illnesses. Patientrecently tested positive for COVID. The patient at this time did have a EMB which at this time was unremarkable, troponin was negative proBNP was negative, CBC was otherwise unremarkable. She had a chest x-ray which was independently interpreted by myself I did not appreciate any type of focal consolidations. Did have an EKG which was otherwise unremarkable no STEMI noted. Was independently interpreted by myself. This time patient's lab work was relatively unremarkable. We did give him IV fluids as well as 15 mg Toradol IV and 10 mg Decadron IV. This was done so for symptomatic treatment. She has had symptoms for several days at this time and would not benefit from Paxlovid. The patientis not requiring any oxygen supplementation at his SPO2 is approximately 95% at this time thus we elected not to place him on Decadron. Explained to the patient that at this time symptomatic care at home would be appropriate we suggested Motrin 400 mg 3 times daily as needed as well as Tylenol 500 mg 3 times daily as needed. If patient had any worsening changing symptoms please return to the ED. MDM elements: The patient presented with chief complaint of viral symptoms. The differential diagnosis associated with this patient's presentation includes COVID, pneumonia, ACS. Our workup consisted of ordering/reviewing: BMP, troponin, proBNP, chest x-ray EKG. Patient is in agreement with this plan. All diagnostic, treatment, and disposition decisions were made by myself in conjunction with the Resident. I also supervised plaza portions of any procedures performed by the Resident. For all further details of the patient's emergency department visit, please see their documentation. (Comment: Please note this report has been produced using speech recognition software and may contain errors related to that system including errors in grammar, punctuation, and spelling, as well as words and phrases that may be inappropriate. If there are any questions or concerns please feel freeto contact the dictating provider for clarification.) Mann Morrison DO [employer] Mann Morrison DO 07/03/22 185 documented in this [facility]03-23-2023 Physician Emergency department Note* Mann Morrison DO - 07/03/2022 3:16 PM EDT Emergency Department Encounter [facility] ED Patient: Sophie Hicks : 1965 Date of Evaluation: 07/03/2022 ED Supervising Physician: Mann Morrison DO I independently examined and evaluated Sophie Hicks. This will serve as my Supervisory note and shared attestation. I did perform a substantive portion of the visit including all aspects of the Medical Decision Making. I wore appropriate PPE for the entirety of this encounter. In brief, Sophie Hicks is a 56 y.o. male that presents to the emergency department for flulike symptoms. Patient states that he recently was diagnosed with COVID. States that he just does not feel particularly well. States that his whole body aches he states that he does have some questionable shortness of breath denies any nausea no vomiting but does feel unwell. Focused exam: Physical exam was relatively unremarkable, heart lung sounds were normal abdominal exam was negative no lower extremity edema no skin breakdown no other findings noted. Brief ED course/MDM: Patient presents to the emergency department for viral type illnesses. Patientrecently tested positive for COVID. The patient at this time did have a EMB which at this time was unremarkable, troponin was negative proBNP was negative, CBC was otherwise unremarkable. She had a chest x-ray which was independently interpreted by myself I did not appreciate any type of focal consolidations. Did have an EKG which was otherwise unremarkable no STEMI noted. Was independently interpreted by myself. This time patient's lab work was relatively unremarkable. We did give him IV fluids as well as 15 mg Toradol IV and 10 mg Decadron IV. This was done so for symptomatic treatment. She has had symptoms for several days at this time and would not benefit from Paxlovid. The patientis not requiring any oxygen supplementation at his SPO2 is approximately 95% at this time thus we elected not to place him on Decadron. Explained to the patient that at this time symptomatic care at home would be appropriate we suggested Motrin 400 mg 3 times daily as needed as well as Tylenol 500 mg 3 times daily as needed. If patient had any worsening changing symptoms please return to the ED. MDM elements: The patient presented with chief complaint of viral symptoms. The differential diagnosis associated with this patient's presentation includes COVID, pneumonia, ACS. Our workup consisted of ordering/reviewing: BMP, troponin, proBNP, chest x-ray EKG. Patient is in agreement with this plan. All diagnostic, treatment, and disposition decisions were made by myself in conjunction with the Resident. I also supervised plaza portions of any procedures performed by the Resident. For all further details of the patient's emergency department visit, please see their documentation. (Comment: Please note this report has been produced using speech recognition software and may contain errors related to that system including errors in grammar, punctuation, and spelling, as well as words and phrases that may be inappropriate. If there are any questions or concerns please feel freeto contact the dictating provider for clarification.) Mann Morrison DO [employer] Mann Morrison DO 07/03/22 [id number] [employer] Phone: [phone] Hospital Discharge instructions* Discharge Instructions* Fiordaliza Cuellar DO - 06/10/2022 1:07 AM EST Your lab work, imaging and urine is reassuring. You have musculoskeletal pain, you are given a prescription for a muscle relaxer and a short course of anti- inflammatory medications. Your kidney function is appropriate, please do not take NSAIDS beyond the five day course with your history of kidneydisease. You are also given a prescription for antibiotic, for infection of chronic wounds of left lower extremity, please take as prescribed. Follow closely with your primary care physician. Return to the emergency department new or worsening symptoms, as discussed. * Attachments The following attachments cannot be sent through Care Everywhere. * Flank Pain ED (Honduran) documented in this [facility]02-27-2023 Emergency department Note* Elvia Becerril PA-C - 06/09/2022 9:29 PM EST Emergency Department Encounter [facility] ED Patient: Sophie Hicks : 1965 Date of Evaluation: 06/09/2022 ED CODI Provider: Elvia Becerril PA-C EDcare was supervised by Dr. Cuellar who independently examined and evaluated the patient. Please see their attestation note for further details. Chief Complaint: Chief Complaint Patient presents with Flank Pain Leg Swelling History of Present Illness: I wore appropriate PPE for entire encounter. Sophie Hicks is a 56 y.o. male with past medical history of CHF, TIA, CAD, DEMI on CPAP, type 2 diabetes, obesity, atrial fibrillation who presented to the emergency department for evaluation of flank pain and left lower extremity swelling. Right-sided flank pain has been present over the past few days. Radiates around into right ribs. He states that it is worse with movement, improved at rest. No history of falls, trauma or heavy lifting. States that he has not been sleeping well secondary to the pain. He denies any chest pain, shortness of breath, nausea or vomiting. Denies any urinary symptoms or changes in bowel habits. He also reports redness and pain of left lower extremity from the knee to ankle. States that the area is painful and pruritic, also warm to the touch. He denies any fevers or chills. He is currently using topical cream provided by his PCP. Nursing notes were reviewed. Limitations to history: None Outside historians: None Review of Systems: Positives and pertinent negatives as per HPI. All other systems were reviewed and are acutely negative except as noted. Past History: Past Medical History: Diagnosis Date Abdominal pain Atrial fibrillation (CMS/HCC) (HCC) Back pain Benign essential HTN 01/29/2015 Blood circulation, collateral CAD (coronary artery disease) mild - dx on cath - neg stress Cerebral artery occlusion with cerebral infarction (CMS/HCC) (HCC) Chronic kidney disease COPD (chronic obstructive pulmonary disease) ([facility]) COVID-19 05/03 COVID-19 vaccine series completed 09/25/2020 Moderna COVID-19 vaccine series completed 12/04/2020 BOOSTER CS (cervical spondylosis) 12/25/2004 CERVICAL SPINE DJD Difficulty sleeping Dizziness GERD (gastroesophageal reflux disease) History of colonic polyps 06/21/2013 repeat 2019 Hyperlipidemia Insomnia 08/15/2014 Joint pain, hip Joint pain, knee Memory difficulties Muscle weakness Peripheral polyneuropathy 09/30/2020 Shortness of breath at rest Sleep apnea Snoring SOBOE (shortness of breath on exertion) Type 2 diabetes mellitus (HCC) 03/19/2021 Past Surgical History: Procedure Laterality Date APPENDECTOMY BARIATRIC SURGERY 12/03/2021 Dr. Trevino CARDIAC CATHETERIZATION 12/17/2013 NORMAL CORONARY ARTERIES AND LVEF. COLONOSCOPY COLONOSCOPY 2020 CYSTOSCOPY 10/26/2020 CYSTOSCOPY 11/19/2020 NECK SURGERY Posterior cervical fusion ROTATOR CUFF REPAIR Bilateral UPPER GASTROINTESTINAL ENDOSCOPY 01/24/2021 Dr. Cabello Social History Socioeconomic History Marital status: Tobacco Use Smoking status: Never Smokeless tobacco: Never Substance and Sexual Activity Alcohol use: Never Drug use: No Medications/Allergies: Previous Medications ADVAIR DISKUS 250-50 MCG/ACT AEROSOL POWDER INHALE 1 PUFF INTO THE LUNGS TWICE DAILY ALPRAZOLAM (XANAX) 1 MG TABLET Take 1 mg by mouth every 24 hours as needed. ASPIRIN 81 MG EC TABLET 81 mg daily. ATORVASTATIN (LIPITOR) 80 MG TABLET Take 80 mg by mouth daily. B-12 MICROLOZENGE 500 MCG SUBLINGUAL TABLET dissolve 1 tablet under the tongue once daily BACLOFEN (LIORESAL) 10 MG TABLET Take 10 mg by mouth. BUMETANIDE (BUMEX) 1 MG TABLET Take 1 mg by mouth in the morning and 1 mg before bedtime. BUPROPION XL (WELLBUTRIN XL) 150 MG 24 HR TABLET Take 150 mg by mouth daily. CALCIUM CITRATE 250 MG TABLET Take 2 tablets (500 mg) by mouth in the morning and 2 tablets (500 mg) at noon and 2 tablets (500 mg) before bedtime. Take 2 tablets by mouth three times daily.. CYCLOPHOSPHAMIDE (CYTOXAN) 50 MG CAPSULE 150 mg. DICLOFENAC SODIUM (VOLTAREN) 1 % GEL apply 2 grams to affected area four times a day DICYCLOMINE (BENTYL) 10 MG CAPSULE Take 10 mg by mouth in the morning and 10 mg at noon and 10 mg in the evening and 10 mg before bedtime. EMOLLIENT (AQUAPHOR ADVANCED THERAPY) OINTMENT ERGOCALCIFEROL (VITAMIN D2) 1.25 MG (40809 UT) CAPSULE take 1 capsule by mouth every week for 8 doses FAMOTIDINE (PEPCID) 20 MG TABLET every 12 hours. FLUTICASONE (FLONASE) 50 MCG/ACT NASAL SPRAY Every 24 hours. FUROSEMIDE (LASIX) 40 MG TABLET Take 40 mg by mouth in the morning and 40 mg before bedtime. GABAPENTIN (NEURONTIN) 300 MG CAPSULE Take 600 mg by mouth in the morning and 600 mg before bedtime. HYDROXYZINE PAMOATE (VISTARIL) 25 MG CAPSULE Take 25 mg by mouth in the morning and 25 mg before bedtime. LEVOTHYROXINE (SYNTHROID, LEVOXYL) 75 MCG TABLET TAKE 1 TABLET BY MOUTH IN THE MORNING ON AN EMPTY STOMACH ONCE A DAY METOLAZONE (ZAROXOLYN) 2.5 MG TABLET ONDANSETRON ODT (ZOFRAN-ODT) 4 MG DISINTEGRATING TABLET PANTOPRAZOLE (PROTONIX) 40 MG EC TABLET Take 40 mg by mouth daily. PAROXETINE (PAXIL) 20 MG TABLET Take 20 mg by mouth every morning. POLYETHYLENE GLYCOL, PEG, 3350 (GLYCOLAX) 17 GM/SCOOP POWDER TAKE 17 G BY MOUTH DAILY NEEDED (TAKE ONCE DAILY NEEDED FOR CONSTIPATION) POTASSIUM CHLORIDE CR (KLOR-CON M20) 20 MEQ ER TABLET as needed. PREGABALIN (LYRICA) 150 MG CAPSULE Take 150 mg by mouth in the morning and 150 mg before bedtime. SENNA-DOCUSATE SODIUM (SENOKOT-S) 8.6-50 MG TABLET 1-2 tab(s) SILDENAFIL (REVATIO) 20 MG TABLET take 1-5 tablets BY MOUTH NEEDED SILDENAFIL (VIAGRA) 100 MG TABLET Every 24 hours. TAMSULOSIN (FLOMAX) 0.4 MG 24 HR CAPSULE Take 0.4 mg by mouth daily. TORSEMIDE (DEMADEX) 20 MG TABLET 20 mg. TRAMADOL ER (ULTRAM-ER) 300 MG 24 HR TABLET take 0.5 tablet by mouth twice a day TRIAMCINOLONE (KENALOG) 0.1 % CREAM APPLY TO THE AFFECTED AREAS OF LOWER LEGS TWICE DAILY FOR 2 WEEKS... (REFER TO PRESCRIPTION NOTES). VENTOLIN HFA 108 (90 BASE) MCG/ACT INHALER Inhale 2 puffs every 6 hours as needed. Allergies Allergen Reactions Iodinated Contrast Media Other reaction(s): Kidney disease Nsaids Other reaction(s): Kidney disease Physical Exam: ED Triage Vitals [06/09/22 2132] Temp Heart Rate Resp BP 36.4 C (97.6 F) 77 16 130/85 SpO2 Temp Source Heart Rate Source Patient Position 93 % Temporal Monitor -- BP Location FiO2 (%) -- -- Physical Exam Vitals and nursing note reviewed. Constitutional: General: He is not in acute distress. Appearance: He is obese. He is not ill-appearing or toxic-appearing. HENT: Head: Normocephalic and atraumatic. Mouth/Throat: Mouth: Mucous membranes are moist. Eyes: General: No scleral icterus. Extraocular Movements: Extraocular movements intact. Pupils: Pupils are equal, round, and reactive to light. Cardiovascular: Rate and Rhythm: Normal rate and regular rhythm. Pulmonary: Effort: Pulmonary effort is normal. Breath sounds: Normal breath sounds. Abdominal: General: There is no distension. Palpations: Abdomen is soft. Tenderness: There is no abdominal tenderness. There is right CVA tenderness. There is no guarding or rebound. Musculoskeletal: General: Normal range of motion. Cervical back: Normal range of motion. No tenderness. Right lower leg: Edema present. Left lower leg: Edema present. Comments: Right sided thoracic and lumbar paraspinal tenderness, no midline tenderness Skin: Capillary Refill: Capillary refill takes 2 to 3 seconds. Comments: LLE with petechiae and excoriations present over anterior oropeza with obvious areas of irritation by patient. Surrounding erythema present. No significant warmth upon palpation. Area is moderately tender with palpation. Neurological: General: No focal deficit present. Mental Status: He is alert and oriented to person, place, and time. Sensory: No sensory deficit. Psychiatric: Mood and Affect: Mood normal. Behavior: Behavior normal. Screenings: Patients symptoms are consistent with sepsis, severe sepsis, or septic shock (If yes use .sepsiscoremeasure): no Diagnostics: Labs: Labs Reviewed COMPLETE URINALYSIS - Abnormal Result Value Color, Urine Yellow Clarity, Urine Clear pH, Urine 5.5 Leukocytes, Urine Negative Nitrite, Urine Negative Protein, Urine 20 (*) Glucose, Urine Normal Bilirubin, Urine Negative Ketones, Urine Negative Urobilinogen, Urine Normal Blood, Urine Negative RBC, Urine 0-2 WBC, Urine 6-10 (*) Squamous Epithelial, Urine 0-2 Bacteria, Urine Negative Mucus, Urine Few SPECIFIC GRAVITY OF URINE (NUMERIC) 1.023 CBC (HEMOGRAM) - Abnormal Auto WBC 6.8 RBC 4.57 Hemoglobin 13.2 Hematocrit 39.4 (*) MCV 86.2 MCH 28.8 MCHC 33.4 RDW 14.2 Platelets 97 (*) MPV 6.5 (*) BASIC METABOLIC PANEL - Normal SODIUM 136 POTASSIUM 3.8 CHLORIDE 104 CARBON DIOXIDE 27 UREA NITROGEN 19 CREATININE 1.20 GLUCOSE 99 CALCIUM 8.8 ANION GAP 5 eGFR 70.1 Radiographs: CT abdomen pelvis wo IV contrast Final Result 1. No acute finding. Status post sleeve gastrectomy. Report Dictated on Electronically Signed By: Bakari Rivera Electronically Signed Date/Time: 06/09/2022 11:47 PM EST Procedures: N/A EKG: All EKG's are interpreted by the Emergency Department Physician in the absence of a information engineer. Please see Epiphany for interpretation of EKG. Emergency Department Course and Medical Decision Making In brief, Sophie Hicks is a 56 y.o. male who presented to the emergency department for evaluation of right sided flank pain x 2-3 days, one week of LLE redness and pain. External records reviewed: Patient is established with Dr. Fernandez for primary care. He was recentlyseen in office on 05/10/2022 for evaluation of cellulitis of left lower extremity. Physical exam as above, patient nontoxic in appearance. Vital signs upon arrival within normal limits. Differential considerations included UTI, pyelonephritis, renal stone, urinary obstruction, pneumonia, muscular strain/sprain, also cellulitis versus necrotizing fasciitis, vasculitis. Initial medical interventions consisted of IM morphine 4 mg. Initial workup includes CBC, BMP, UA and CT A/P without contrast. Diagnostics reviewed: No leukocytosis or anemia. Chronic thrombocytopenia present with platelet count 97. BMP entirely inrange with no electrolyte derangements or decreased renal function. UA without evidence of bacteriuria. CT A/P as no acute findings. Reevaluation: Repeat physical exam unchanged. Patient reports improvement from administered medications. He does still have some pain in his right side and it is described as a soreness. Will treat with muscle relaxer in the ED and provide first dose of oral antibiotic. Reviewed results of testing with patient and updated on plan of care. Given the patient's examination and work-up results, there is a low clinical suspicion for (including but not limited to) acute abdomen, MEGAN, urinary obstruction. Also unlikely necrotizing fasciitis or sepsis given patient is well-appearing and with normal vital signs, no leukocytosis. Plan: Flank/back pain seems to be musculoskeletal in nature. Patient will be provided with muscle relaxants and short course of NSAIDs due to normal renal function on testing today. Left lower extremity appears to have some chronic wounds, although irritated by patient and may have superimposed infectiongiving significant amount of pain and surrounding erythema, therefore will treat for cellulitis with doxycycline. Patient will be discharged. They were provided with discharge instructions and education regarding final clinical impressions and further supportive care at home. See below for follow up instructions and discharge medications. Patient instructed to return to ED for new or worsening symptoms. Discussed signs/symptoms most concerning that necessitate immediate return. Patient is understanding and agreeable to stated plan. Allquestions addressed. MDM elements: Diagnostic tests considered but not performed: LLE x-ray, no history of trauma/injury, no decreasedROM on exam Diagnostics interpreted by me: none Discussions with other clinicians: none Chronic conditions impacting care: Diabetes, Hypertension, and Heart disease Social determinants of health affecting care: obesity . ED Medications managed: Medications methocarbamol (Robaxin) injection 1,000 mg (has no administration in time range) doxycycline (Vibramycin) capsule 100 mg (has no administration in time range) morphine sulfate (PF) injection 4 mg (4 mg IntraMUSCular Given 06/10/22 0042) Prescription drugs considered: doxycycline for treatment of cellulitis; Robaxin for muscular pain; naprosyn for inflammation Critical Care: None Consults: None FINAL IMPRESSION 1. Flank pain 2. Musculoskeletal pain 3. Cellulitis, unspecified cellulitis site DISPOSITION: Discharge 06/10/2022 01:04:59 AM PATIENT REFERRED TO: Jenni Moser APRN [address] [facility] [address] [facility] [address] [facility] [address] [facility] [address] DISCHARGE MEDICATIONS: New Prescriptions DOXYCYCLINE (VIBRAMYCIN) 100 MG CAPSULE Take 1 capsule (100 mg) by mouth 2 times daily for 7 days. Take with at least 8 ounces (large glass) of water, do not lie down for 30 minutes after METHOCARBAMOL (ROBAXIN) 500 MG TABLET Take 1.5 tablets (750 mg) by mouth every 8 hours as needed for muscle spasms for up to 5 days. NAPROXEN (NAPROSYN) 500 MG TABLET Take 1 tablet (500 mg) by mouth in the morning and 1 tablet (500 mg) in the evening. Take with meals. Do all this for 5 days. Elvia Becerril PA-C [facility] Elvia Becerril PA-C 06/10/22 0123 * Fiordaliza Cuellar DO - 06/09/2022 9:29 PM EST Emergency Department Encounter [facility] Patient: Sophie Hicks : 1965 Date of Evaluation: 06/09/2022 ED Supervising Physician: Fiordaliza Cuellar DO I independently examined and evaluated Sophie Hicks. This will serve as my Supervisory note as the filterer of record and shared attestation. Idid perform a substantive portion of the visit including all aspects of the Medical Decision Making. I wore appropriate PPE for the entirety of this encounter. In brief, Sophie Hicks is a 56 y.o. male that presents to the emergency department with right flank pain, left lower extremity swelling/rash. Patient reports right flank pain has been present for several days, exacerbated by any movement Or to the touch. Denies any falls, traumas, injuries, new orunusual exercises or activities. Denies any urinary symptoms. Patient reports he has not been sleeping due to his pain. Patient is also reporting erythema of the left lower extremity, with abrasions to the anterior oropeza, no significant drainage. Currently on topical cream, which she has been utilizing with minimal improvement. Focused exam: GENERAL APPEARANCE: Awake and alert. Cooperative. No acute distress. NECK: Supple. No meningismus. Trachea midline. HEART: RRR. Radial pulses 2+. LUNGS: Respirations unlabored. CTAB ABDOMEN: Soft. Non-tender. No guarding or rebound. BACK: No midline tenderness to palpation, step-offs or deformities. Reproducible tenderness to palpation over right flank, no overlying erythema, abrasions or ecchymosis. NEUROLOGICAL: No gross facial drooping. Moves all 4 extremities spontaneously. Brief ED course/MDM: Vital signs within normal limits on presentation. Patient is hemodynamically stable, afebrile. Examination consistent with musculoskeletal pain of right flank. Chronic appearing wounds/ulcerations to the left anterior oropeza, with worsening pain and reported swelling, will treat for secondary bacterial infection. Advised to continue topical application of antibiotic ointment, will prescribe p.o. antibiotic. Work-up with no evidence of leukocytosis or anemia. Electrolytes within normal limits. Urinalysis without evidence of hematuria or urinary tract infection. We will treatas musculoskeletal pain. Discussed return precautions. Otherwise advised to follow closely with primary care. All diagnostic, treatment, and disposition decisions were made by myself in conjunction with the CODI. For all further details of the patient's emergency department visit, please see their documentation. (Comment: Please note this report has been produced using speech recognition software and may contain errors related to that system including errors in grammar, punctuation, and spelling, as well as words and phrases that may be inappropriate. If there are any questions or concerns please feel freeto contact the dictating provider for clarification.) Fiordaliza Cuellar DO [employer] Fiordaliza Cuellar DO 06/10/22 0715 * Crystal Correia RN - 06/09/2022 9:29 PM EST Patient presents to ED c/o right sided flank pain and infection in his left leg. Patient states he has Stage 3 kidney disease but the pain in his right side has been increasing lately. documented in this [facility]02-27-2023 Emergency department Triage note* Crystal Correia RN - 06/09/2022 9:29 PM EST Patient presents to ED c/o right sided flank pain and infection in his left leg. Patient states he has Stage 3 kidney disease but the pain in his right side has been increasing lately. [id number] Emergency department Note* Elvia Becerril PA-C - 06/09/2022 9:29 PM EST Emergency Department Encounter [facility] Patient: Sophie Hicks : 1965 Date of Evaluation: 06/09/2022 ED CODI Provider: Elvia Becerril PA-C EDcare was supervised by Dr. Cuellar who independently examined and evaluated the patient. Please see their attestation note for further details. Chief Complaint: Chief Complaint Patient presents with Flank Pain Leg Swelling History of Present Illness: I wore appropriate PPE for entire encounter. Sophie Hicks is a 56 y.o. male with past medical history of CHF, TIA, CAD, DEMI on CPAP, type 2 diabetes, obesity, atrial fibrillation who presented to the emergency department for evaluation of flank pain and left lower extremity swelling. Right-sided flank pain has been present over the past few days. Radiates around into right ribs. He states that it is worse with movement, improved at rest. No history of falls, trauma or heavy lifting. States that he has not been sleeping well secondary to the pain. He denies any chest pain, shortness of breath, nausea or vomiting. Denies any urinary symptoms or changes in bowel habits. He also reports redness and pain of left lower extremity from the knee to ankle. States that the area is painful and pruritic, also warm to the touch. He denies any fevers or chills. He is currently using topical cream provided by his PCP. Nursing notes were reviewed. Limitations to history: None Outside historians: None Review of Systems: Positives and pertinent negatives as per HPI. All other systems were reviewed and are acutely negative except as noted. Past History: Past Medical History: Diagnosis Date Abdominal pain Atrial fibrillation (CMS/HCC) (HCC) Back pain Benign essential HTN 01/29/2015 Blood circulation, collateral CAD (coronary artery disease) mild - dx on cath - neg stress Cerebral artery occlusion with cerebral infarction (CMS/HCC) (HCC) Chronic kidney disease COPD (chronic obstructive pulmonary disease) (HCC) COVID-19 05/03 COVID-19 vaccine series completed 09/25/2020 Moderna COVID-19 vaccine series completed 12/04/2020 BOOSTER CS (cervical spondylosis) 12/25/2004 CERVICAL SPINE DJD Difficulty sleeping Dizziness GERD (gastroesophageal reflux disease) History of colonic polyps 06/21/2013 repeat 2019 Hyperlipidemia Insomnia 08/15/2014 Joint pain, hip Joint pain, knee Memory difficulties Muscle weakness Peripheral polyneuropathy 09/30/2020 Shortness of breath at rest Sleep apnea Snoring SOBOE (shortness of breath on exertion) Type 2 diabetes mellitus (HCC) 03/19/2021 Past Surgical History: Procedure Laterality Date APPENDECTOMY BARIATRIC SURGERY 12/03/2021 Dr. Trevino CARDIAC CATHETERIZATION 12/17/2013 NORMAL CORONARY ARTERIES AND LVEF. COLONOSCOPY COLONOSCOPY 2020 CYSTOSCOPY 10/26/2020 CYSTOSCOPY 11/19/2020 NECK SURGERY Posterior cervical fusion ROTATOR CUFF REPAIR Bilateral UPPER GASTROINTESTINAL ENDOSCOPY 01/24/2021 Dr. Cabello Social History Socioeconomic History Marital status: Tobacco Use Smoking status: Never Smokeless tobacco: Never Substance and Sexual Activity Alcohol use: Never Drug use: No Medications/Allergies: Previous Medications ADVAIR DISKUS 250-50 MCG/ACT AEROSOL POWDER INHALE 1 PUFF INTO THE LUNGS TWICE DAILY ALPRAZOLAM (XANAX) 1 MG TABLET Take 1 mg by mouth every 24 hours as needed. ASPIRIN 81 MG EC TABLET 81 mg daily. ATORVASTATIN (LIPITOR) 80 MG TABLET Take 80 mg by mouth daily. B-12 MICROLOZENGE 500 MCG SUBLINGUAL TABLET dissolve 1 tablet under the tongue once daily BACLOFEN (LIORESAL) 10 MG TABLET Take 10 mg by mouth. BUMETANIDE (BUMEX) 1 MG TABLET Take 1 mg by mouth in the morning and 1 mg before bedtime. BUPROPION XL (WELLBUTRIN XL) 150 MG 24 HR TABLET Take 150 mg by mouth daily. CALCIUM CITRATE 250 MG TABLET Take 2 tablets (500 mg) by mouth in the morning and 2 tablets (500 mg) at noon and 2 tablets (500 mg) before bedtime. Take 2 tablets by mouth three times daily.. CYCLOPHOSPHAMIDE (CYTOXAN) 50 MG CAPSULE 150 mg. DICLOFENAC SODIUM (VOLTAREN) 1 % GEL apply 2 grams to affected area four times a day DICYCLOMINE (BENTYL) 10 MG CAPSULE Take 10 mg by mouth in the morning and 10 mg at noon and 10 mg in the evening and 10 mg before bedtime. EMOLLIENT (AQUAPHOR ADVANCED THERAPY) OINTMENT ERGOCALCIFEROL (VITAMIN D2) 1.25 MG (33696 UT) CAPSULE take 1 capsule by mouth every week for 8 doses FAMOTIDINE (PEPCID) 20 MG TABLET every 12 hours. FLUTICASONE (FLONASE) 50 MCG/ACT NASAL SPRAY Every 24 hours. FUROSEMIDE (LASIX) 40 MG TABLET Take 40 mg by mouth in the morning and 40 mg before bedtime. GABAPENTIN (NEURONTIN) 300 MG CAPSULE Take 600 mg by mouth in the morning and 600 mg before bedtime. HYDROXYZINE PAMOATE (VISTARIL) 25 MG CAPSULE Take 25 mg by mouth in the morning and 25 mg before bedtime. LEVOTHYROXINE (SYNTHROID, LEVOXYL) 75 MCG TABLET TAKE 1 TABLET BY MOUTH IN THE MORNING ON AN EMPTY STOMACH ONCE A DAY METOLAZONE (ZAROXOLYN) 2.5 MG TABLET ONDANSETRON ODT (ZOFRAN-ODT) 4 MG DISINTEGRATING TABLET PANTOPRAZOLE (PROTONIX) 40 MG EC TABLET Take 40 mg by mouth daily. PAROXETINE (PAXIL) 20 MG TABLET Take 20 mg by mouth every morning. POLYETHYLENE GLYCOL, PEG, 3350 (GLYCOLAX) 17 GM/SCOOP POWDER TAKE 17 G BY MOUTH DAILY NEEDED (TAKE ONCE DAILY NEEDED FOR CONSTIPATION) POTASSIUM CHLORIDE CR (KLOR-CON M20) 20 MEQ ER TABLET as needed. PREGABALIN (LYRICA) 150 MG CAPSULE Take 150 mg by mouth in the morning and 150 mg before bedtime. SENNA-DOCUSATE SODIUM (SENOKOT-S) 8.6-50 MG TABLET 1-2 tab(s) SILDENAFIL (REVATIO) 20 MG TABLET take 1-5 tablets BY MOUTH NEEDED SILDENAFIL (VIAGRA) 100 MG TABLET Every 24 hours. TAMSULOSIN (FLOMAX) 0.4 MG 24 HR CAPSULE Take 0.4 mg by mouth daily. TORSEMIDE (DEMADEX) 20 MG TABLET 20 mg. TRAMADOL ER (ULTRAM-ER) 300 MG 24 HR TABLET take 0.5 tablet by mouth twice a day TRIAMCINOLONE (KENALOG) 0.1 % CREAM APPLY TO THE AFFECTED AREAS OF LOWER LEGS TWICE DAILY FOR 2 WEEKS... (REFER TO PRESCRIPTION NOTES). VENTOLIN HFA 108 (90 BASE) MCG/ACT INHALER Inhale 2 puffs every 6 hours as needed. Allergies Allergen Reactions Iodinated Contrast Media Other reaction(s): Kidney disease Nsaids Other reaction(s): Kidney disease Physical Exam: ED Triage Vitals [06/09/22 2132] Temp Heart Rate Resp BP 36.4 C (97.6 F) 77 16 130/85 SpO2 Temp Source Heart Rate Source Patient Position 93 % Temporal Monitor -- BP Location FiO2 (%) -- -- Physical Exam Vitals and nursing note reviewed. Constitutional: General: He is not in acute distress. Appearance: He is obese. He is not ill-appearing or toxic-appearing. HENT: Head: Normocephalic and atraumatic. Mouth/Throat: Mouth: Mucous membranes are moist. Eyes: General: No scleral icterus. Extraocular Movements: Extraocular movements intact. Pupils: Pupils are equal, round, and reactive to light. Cardiovascular: Rate and Rhythm: Normal rate and regular rhythm. Pulmonary: Effort: Pulmonary effort is normal. Breath sounds: Normal breath sounds. Abdominal: General: There is no distension. Palpations: Abdomen is soft. Tenderness: There is no abdominal tenderness. There is right CVA tenderness. There is no guarding or rebound. Musculoskeletal: General: Normal range of motion. Cervical back: Normal range of motion. No tenderness. Right lower leg: Edema present. Left lower leg: Edema present. Comments: Right sided thoracic and lumbar paraspinal tenderness, no midline tenderness Skin: Capillary Refill: Capillary refill takes 2 to 3 seconds. Comments: LLE with petechiae and excoriations present over anterior oropeza with obvious areas of irritation by patient. Surrounding erythema present. No significant warmth upon palpation. Area is moderately tender with palpation. Neurological: General: No focal deficit present. Mental Status: He is alert and oriented to person, place, and time. Sensory: No sensory deficit. Psychiatric: Mood and Affect: Mood normal. Behavior: Behavior normal. Screenings: Patients symptoms are consistent with sepsis, severe sepsis, or septic shock (If yes use .sepsiscoremeasure): no Diagnostics: Labs: Labs Reviewed COMPLETE URINALYSIS - Abnormal Result Value Color, Urine Yellow Clarity, Urine Clear pH, Urine 5.5 Leukocytes, Urine Negative Nitrite, Urine Negative Protein, Urine 20 (*) Glucose, Urine Normal Bilirubin, Urine Negative Ketones, Urine Negative Urobilinogen, Urine Normal Blood, Urine Negative RBC, Urine 0-2 WBC, Urine 6-10 (*) Squamous Epithelial, Urine 0-2 Bacteria, Urine Negative Mucus, Urine Few SPECIFIC GRAVITY OF URINE (NUMERIC) 1.023 CBC (HEMOGRAM) - Abnormal Auto WBC 6.8 RBC 4.57 Hemoglobin 13.2 Hematocrit 39.4 (*) MCV 86.2 MCH 28.8 MCHC 33.4 RDW 14.2 Platelets 97 (*) MPV 6.5 (*) BASIC METABOLIC PANEL - Normal SODIUM 136 POTASSIUM 3.8 CHLORIDE 104 CARBON DIOXIDE 27 UREA NITROGEN 19 CREATININE 1.20 GLUCOSE 99 CALCIUM 8.8 ANION GAP 5 eGFR 70.1 Radiographs: CT abdomen pelvis wo IV contrast Final Result 1. No acute finding. Status post sleeve gastrectomy. Report Dictated on Electronically Signed By: Bakari Rivera Electronically Signed Date/Time: 06/09/2022 11:47 PM EST Procedures: N/A EKG: All EKG's are interpreted by the Emergency Department Physician in the absence of a information engineer. Please see [facility] for interpretation of EKG. Emergency Department Course and Medical Decision Making In brief, Spohie Hicks is a 56 y.o. male who presented to the emergency department for evaluation of right sided flank pain x 2-3 days, one week of LLE redness and pain. External records reviewed: Patient is established with Dr. Fernandez for primary care. He was recentlyseen in office on 05/10/2022 for evaluation of cellulitis of left lower extremity. Physical exam as above, patient nontoxic in appearance. Vital signs upon arrival within normal limits. Differential considerations included UTI, pyelonephritis, renal stone, urinary obstruction, pneumonia, muscular strain/sprain, also cellulitis versus necrotizing fasciitis, vasculitis. Initial medical interventions consisted of IM morphine 4 mg. Initial workup includes CBC, BMP, UA and CT A/P without contrast. Diagnostics reviewed: No leukocytosis or anemia. Chronic thrombocytopenia present with platelet count 97. BMP entirely inrange with no electrolyte derangements or decreased renal function. UA without evidence of bacteriuria. CT A/P as no acute findings. Reevaluation: Repeat physical exam unchanged. Patient reports improvement from administered medications. He does still have some pain in his right side and it is described as a soreness. Will treat with muscle relaxer in the ED and provide first dose of oral antibiotic. Reviewed results of testing with patient and updated on plan of care. Given the patient's examination and work-up results, there is a low clinical suspicion for (including but not limited to) acute abdomen, MGEAN, urinary obstruction. Also unlikely necrotizing fasciitis or sepsis given patient is well-appearing and with normal vital signs, no leukocytosis. Plan: Flank/back pain seems to be musculoskeletal in nature. Patient will be provided with muscle relaxants and short course of NSAIDs due to normal renal function on testing today. Left lower extremity appears to have some chronic wounds, although irritated by patient and may have superimposed infectiongiving significant amount of pain and surrounding erythema, therefore will treat for cellulitis with doxycycline. Patient will be discharged. They were provided with discharge instructions and education regarding final clinical impressions and further supportive care at home. See below for follow up instructions and discharge medications. Patient instructed to return to ED for new or worsening symptoms. Discussed signs/symptoms most concerning that necessitate immediate return. Patient is understanding and agreeable to stated plan. Allquestions addressed. MDM elements: Diagnostic tests considered but not performed: LLE x-ray, no history of trauma/injury, no decreasedROM on exam Diagnostics interpreted by me: none Discussions with other clinicians: none Chronic conditions impacting care: Diabetes, Hypertension, and Heart disease Social determinants of health affecting care: obesity . ED Medications managed: Medications methocarbamol (Robaxin) injection 1,000 mg (has no administration in time range) doxycycline (Vibramycin) capsule 100 mg (has no administration in time range) morphine sulfate (PF) injection 4 mg (4 mg IntraMUSCular Given 06/10/2241) Prescription drugs considered: doxycycline for treatment of cellulitis; Robaxin for muscular pain; naprosyn for inflammation Critical Care: None Consults: None FINAL IMPRESSION 1. Flank pain 2. Musculoskeletal pain 3. Cellulitis, unspecified cellulitis site DISPOSITION: Discharge 06/10/2022 01:04:59 AM PATIENT REFERRED TO: Jenni Moser APRN [address] [facility] [address] [facility] [address] [facility] [address] [facility] [address] DISCHARGE MEDICATIONS: New Prescriptions DOXYCYCLINE (VIBRAMYCIN) 100 MG CAPSULE Take 1 capsule (100 mg) by mouth 2 times daily for 7 days. Take with at least 8 ounces (large glass) of water, do not lie down for 30 minutes after METHOCARBAMOL (ROBAXIN) 500 MG TABLET Take 1.5 tablets (750 mg) by mouth every 8 hours as needed for muscle spasms for up to 5 days. NAPROXEN (NAPROSYN) 500 MG TABLET Take 1 tablet (500 mg) by mouth in the morning and 1 tablet (500 mg) in the evening. Take with meals. Do all this for 5 days. Elvia Becerril PA-C [employer] Elvia Becerril PA-C 06/10/22 0123 bills Phone: [phone] Physician Emergency department Note* Fiordaliza Cuellar DO - 06/09/2022 9:29 PM EST Emergency Department Encounter [facility] Patient: Sophie Hicks : 1965 Date of Evaluation: 06/09/2022 ED Supervising Physician: Fiordaliza Cuellar DO I independently examined and evaluated Sophie Hicks. This will serve as my Supervisory note as the filterer of record and shared attestation. Idid perform a substantive portion of the visit including all aspects of the Medical Decision Making. I wore appropriate PPE for the entirety of this encounter. In brief, Sophie Hicks is a 56 y.o. male that presents to the emergency department with right flank pain, left lower extremity swelling/rash. Patient reports right flank pain has been present for several days, exacerbated by any movement Or to the touch. Denies any falls, traumas, injuries, new orunusual exercises or activities. Denies any urinary symptoms. Patient reports he has not been sleeping due to his pain. Patient is also reporting erythema of the left lower extremity, with abrasions to the anterior oropeza, no significant drainage. Currently on topical cream, which she has been utilizing with minimal improvement. Focused exam: GENERAL APPEARANCE: Awake and alert. Cooperative. No acute distress. NECK: Supple. No meningismus. Trachea midline. HEART: RRR. Radial pulses 2+. LUNGS: Respirations unlabored. CTAB ABDOMEN: Soft. Non-tender. No guarding or rebound. BACK: No midline tenderness to palpation, step-offs or deformities. Reproducible tenderness to palpation over right flank, no overlying erythema, abrasions or ecchymosis. NEUROLOGICAL: No gross facial drooping. Moves all 4 extremities spontaneously. Brief ED course/MDM: Vital signs within normal limits on presentation. Patient is hemodynamically stable, afebrile. Examination consistent with musculoskeletal pain of right flank. Chronic appearing wounds/ulcerations to the left anterior oropeza, with worsening pain and reported swelling, will treat for secondary bacterial infection. Advised to continue topical application of antibiotic ointment, will prescribe p.o. antibiotic. Work-up with no evidence of leukocytosis or anemia. Electrolytes within normal limits. Urinalysis without evidence of hematuria or urinary tract infection. We will treatas musculoskeletal pain. Discussed return precautions. Otherwise advised to follow closely with primary care. All diagnostic, treatment, and disposition decisions were made by myself in conjunction with the CODI. For all further details of the patient's emergency department visit, please see their documentation. (Comment: Please note this report has been produced using speech recognition software and may contain errors related to that system including errors in grammar, punctuation, and spelling, as well as words and phrases that may be inappropriate. If there are any questions or concerns please feel freeto contact the dictating provider for clarification.) Fiordaliza Cuellar DO [facility] Fiordaliza Cuellar DO 06/10/22 0715 [id number] Telephone encounter Note* Telephone Encounter - Tierney Ribeiro - 04/25/2022 11:25 AM EST Last follow up: 09/2021 Next appointment: Visit date not found Allergies Allergen Reactions Iodinated Diagnostic Agents Other reaction(s): Kidney disease Nsaids Other reaction(s): Kidney disease Requested Prescriptions Pending Prescriptions Disp Refills Advair Diskus 250-50 MCG/ACT aerosol powder [Pharmacy Med Name: ADVAIR 250/50 DISKUS 250-50 Aerosol] 1 each 10 Sig: INHALE 1 PUFF INTO THE LUNGS TWICE DAILY [id number] Miscellaneous Notes* Telephone Encounter - Tierney Ribeiro - 04/25/2022 11:25 AM EST Last follow up: 09/2021 Next appointment: Visit date not found Allergies Allergen Reactions Iodinated Diagnostic Agents Other reaction(s): Kidney disease Nsaids Other reaction(s): Kidney disease Requested Prescriptions Pending Prescriptions Disp Refills Advair Diskus 250-50 MCG/ACT aerosol powder [Pharmacy Med Name: ADVAIR 250/50 DISKUS 250-50 Aerosol] 1 each 10 Sig: INHALE 1 PUFF INTO THE LUNGS TWICE DAILY documented in this [facility]09-08-2022 NoteDischarge Summary Sophie Hicks : 1965 ADMIT DATE: 12/17/2021 DISCHARGE DATE: 12/19/2021 PRIMARY CARE PHYSICIAN: GREG Oseguera CNP VISIT STATUS: Observation CODE STATUS: Full Code DISCHARGE DIAGNOSES: Active Problems: Abdominal pain Resolved Problems: * No resolved hospital problems. * HOSPITAL COURSE: Patient presented on 12/17/2021 for abdominal pain. Patient recently had LSG on 12/03. Conservative management during this hospital stay. No surgical interventions indicated. Recommend follow-up PCP/surgery in 3 to 4 weeks or as needed. Pain was initially controlled with IV medication, but was transitioned to oral pain medication. The patient's diet was advanced as tolerated. At the time of discharge, the patient was having bowel function, voiding spontaneously, tolerating a regular diet, and pain was controlled with oral medication. DISCHARGE MEDICATIONS: Medication List CHANGE how you take these medications dicyclomine 10 MG capsule Commonly known as: BENTYL Take 1 capsule by mouth 4 times daily What changed: when to take this ergocalciferol 1.25 MG (04989 UT) capsule Commonly known as: ERGOCALCIFEROL Take 1 capsule by mouth once a week for [address] Vitamin Replacement Protocol What changed: additional instructions CONTINUE taking these medications Advair Diskus 250-50 MCG/ACT Aepb diskus inhaler Generic drug: fluticasone-salmeterol Inhale 1 puff into the lungs 2 times daily B-[address] 1 tablet under the tongue daily baclofen 10 MG tablet Commonly known as: LIORESAL buPROPion 150 MG extended release tablet Commonly known as: WELLBUTRIN SR calcium carbonate 500 MG chewable tablet Commonly known as: TUMS CHILDRENS MULTIVITAMIN/IRON PO CPAP Machine Misc diclofenac sodium 1 % Gel Commonly known as: VOLTAREN enoxaparin 300 MG/3ML injection Commonly known as: LOVENOX famotidine 20 MG tablet Commonly known as: Pepcid Take 1 tablet by mouth 2 times daily furosemide 40 MG tablet Commonly known as: LASIX gabapentin 300 MG capsule Commonly known as: NEURONTIN hydrOXYzine pamoate 25 MG capsule Commonly known as: VISTARIL Lantus SoloStar 100 UNIT/ML injection pen Generic drug: insulin glargine levothyroxine 50 MCG tablet Commonly known as: SYNTHROID methocarbamol 750 MG tablet Commonly known as: ROBAXIN ondansetron 4 MG tablet Commonly known as: ZOFRAN Take 1 tablet by mouth 3 times daily as needed for Nausea or Vomiting oxybutynin 10 MG extended release tablet Commonly known as: Ditropan XL Take 1 tablet by mouth daily PARoxetine 20 MG tablet Commonly known as: PAXIL polyethylene glycol 17 GM/SCOOP powder Commonly known as: GLYCOLAX Take 17 g by mouth daily as needed (Take once daily as needed for constipation) promethazine 12.5 MG tablet Commonly known as: PHENERGAN sennosides-docusate sodium 8.6-50 MG tablet Commonly known as: SENOKOT-S tamsulosin 0.4 MG capsule Commonly known as: FLOMAX TAKE 1 CAPSULE BY MOUTH ONCE DAILY Ventolin HFA 108 (90 Base) MCG/ACT inhaler Generic drug: albuterol sulfate HFA INHALE 2 PUFFS BY MOUTH AND INTO THE LUNGS FOUR TIMES A DAY IF NEEDED FOR WHEEZING. USE EVERY 4 HOURS IF NEEDED. VITAMIN D (CHOLECALCIFEROL) PO ASK your doctor about these medications aspirin 81 MG chewable tablet atorvastatin 80 MG tablet Commonly known as: LIPITOR Take 1 tablet by mouth nightly pantoprazole 40 MG tablet Commonly known as: PROTONIX Take 1 tablet by mouth 2 times daily (with meals) potassium chloride 20 MEQ packet Commonly known as: KLOR-CON zinc gluconate 50 MG tablet Where to Get Your Medications These medications were sent to [id number] - [place] [id number] [place] [phone] - F [phone] [address] [facility] [id number] dicyclomine 10 MG capsule DIET: DIET GI SOFT; ACTIVITY: No heavy lifting. BMI CLASSIFICATION: - Body mass index is 44.05 kg/m?. - Morbidly Obese (>40.0) COMPLEXITY OF FOLLOW UP: [x] Moderate Complexity: follow up within 7-14 calendar days (83544) [] Severe Complexity: follow up within 7 calendar days (52375) FOLLOW UP TESTING, PENDING RESULTS OR REFERRALS AT TRANSITIONAL CARE VISIT: [] Yes [] No PENDING STUDIES: No DISPOSITION: Home FACILITY/HOME CARE AGENCY NAME: Not applicable Follow up with eJnni Moser APRN - [facility] [address] [facility] [address] Louisa Cabello, [address], [address] [place] [phone] Follow up Please call in 1-2 days and schedule follow-up in 3 to 4 weeks or as needed INSTRUCTIONS TO MA/SW: Please call patient on day after discharge (must document patient contacted within 2 business days of discharge). FOLLOW UP QUESTIONS FOR MA/SW: 1. Did you get medications filled and taking them as instructed from discharge? (more content not included)...[facility]09-08-2022 History of Present illness Narrative* Arianna Jackson - 12/19/2021 2:05 PM EDT .Nutrition rescreen completed. Chart reviewed. Patient to be monitored and followed by the diet nanotechnician. KONG Coats * Teresa Montes De Oca RN - 12/18/2021 2:08 PM EDT Bariatric conservation of resources commissioner Note POD #15- PM Patient s/p LSG 12/03/21 Patient continues to complain of abdominal pain but requesting diet to be advanced. Patient was drinking out of a straw and had sprite, reviewed bariatric diet protocol with patient Tolerating liquids: Yes Nausea/vomiting: No Dysphagia: No Adequate Urine Output: Yes Bowel movement: at home If yes - description: Abdomen slightly distended,soft Patient on room air: Yes Ambulating:in room Pain Control: Current treatment: prn meds Pain is not controlled with current treatment. Patient continues to complain of pain at level 7-8 Interventions: Yes-VQ scan pending Will continue to follow documented in this encounterSXerox Work Phone: 1([phone]) 586-900809-08-2022 Hospital Discharge instructions* Discharge Instructions* Marisel Tam MD - 12/19/2021 12:58 PM EDT Images from the original note were not included. Discharge Instructions No driving while taking narcotic pain medications. You may take an over the counter stool softener while on narcotics for constipation as needed (colace, miralax, etc). Call your Physician or return to the Emergency Room if you experience: -New or increased pain. -New or increased bleeding. -Nausea & vomitting. -Fever & chills. -Shortness of breath. -Chest pain. -Abdominal distention. documented in this encounterS[facility]er[facility] Work Phone: [phone] 324-504408-25-2022 NoteCKD Stage 3 (GFR 30-59)[facility]08-25-2022 NoteDiastolic CHF or CHF with preserved [facility] 12-04-2021 History of Present illness Narrative* Shahzad Clark RCP - 12/04/2021 10:01 PM EDT Patient states that he lost a lot of weight and was told that he no longer needs home pap. * Lisandro Borrero RCP - 12/04/2021 5:02 PM EDT [facility] Respiratory Care Department Progress Note As part of the Respiratory Assessment Program (RAP), the following Respiratory Therapist evaluationhas been completed, including a chart review and clinical/physical assessment. Respiratory Therapist RAP Evaluation Guideline Points 0 1 2 3 4 Points Strongly Consider History Factor No Pulmonary conditions Stable Pulmonary condition(s) Surgery or Intervention that may impact Pulmonary system (at risk) Surgery or Intervention that is impacting Pulmonary system Active Exacerbation of Pulmonary Condition 0 Respiratory Pattern Regular, RR= 12-18 ARMENTA or Increased RR= 19-24 Irregular, or RR= 25-30 SOB, talk in short sentences, or RR= 31-35 Severe SOB, accessory muscle use, one word answers, or RR>35 0 Aerosol Med(s), High Flow O2 Breath Sounds Clear Diminished in 1 lobe Diminished in ? 2 lobes Adventitious breath sounds Coarse crackles, Wheezes, or Diminished in >2 lobes 1 Aerosol Med(s), Bronchial Hygiene, Hyperinflation Cough & Sputum Strong cough, no secretion retention or production Weak cough, no secretion retention or production Weak cough, w/ production (less often than Q2hr), or secretion retention No cough, w/ secretion retention or production (less often than Q2hr) Significant secretion production (more often than Q2hr) or mucus plug 0 Aerosol Med(s), Bronchial Hygiene, Hyperinflation Level of Activity Ambulatory Ambulatory with Assist Up in chair or edge of bed (dangle) Non-ambulatory, bedridden with active ROM Completely paralyzed or without active ROM 0 Triage 5 0-2 Triage 4 3-5 Triage 3 6-10 Triage 2 11-14 Triage 1 ?15 Total 1 Triage Score = 5 TRIAGE SCORING - SUGGESTED FREQUENCIES Aerosol Therapy Bronchial Hygiene Hyperinflation Triage Score Q4h & PRN 1 Q4hWA (QID) & PRN 2 TID & PRN 3 BID & PRN 4 PRN 5 Therapy(s) Indicated Yes/No Aerosol Medication no Hyperinflation no Bronchial Hygiene no High Flow Oxygen no RT to enter/modify frequency of treatment order in EMR/EHR to match this RAP evaluation. Based on this RAP evaluation the following therapy is being initiated: aerosol therapy At the following frequency: Albuterol PRN Comments: Thank you for involving Respiratory in the care of this patient, * Marylou Olguin - 12/04/2021 7:35 AM EDT Preliminary negative for leak. * Indira Eason RN - 12/03/2021 7:02 AM EDT Solucortef not given per Анна henson documented in this [facility] Work Phone: [phone]) 766-889908-24-2022 NoteDischarge Summary Sophie Hicks : 1965 ADMIT DATE: 12/03/2021 DISCHARGE DATE: 12/05/2021 ATTENDING PHYSICIAN: Louisa Cabello DO VISIT STATUS: Admission CODE STATUS: Prior DISCHARGE DIAGNOSES: Patient Active Problem List Diagnosis Date Noted History of colonic polyps 06/21/2013 Type 2 diabetes mellitus 03/19/2021 DEMI on CPAP 03/19/2021 Hyperlipidemia CHF (congestive heart failure) (HCC) DEMI (obstructive sleep apnea) 12/13/2020 Mucopurulent chronic bronchitis (HCC) 12/13/2020 Back pain Peripheral polyneuropathy 09/30/2020 Cervicalgia 09/30/2020 Disorder of bladder 09/30/2020 Hypoalbuminemia 09/30/2020 Occlusion and stenosis of bilateral carotid arteries 09/30/2020 Urinary hesitancy 09/30/2020 Nephrotic syndrome with membranous glomerulonephritis 09/30/2020 Sleep apnea 09/18/2020 Shortness of breath 09/18/2020 History of snoring 09/18/2020 Degenerative disc disease, thoracic 09/13/2020 Degenerative disc disease, lumbar 09/13/2020 GERD (gastroesophageal reflux disease) 09/11/2020 Chronic back pain 09/11/2020 Peripheral edema Neurological symptoms 07/23/2020 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 male who presented to [facility] on 12/03/2021 for elective bariatric surgical procedure. This patient underwent a Laparoscopic Sleeve Gastrectomy Procedure on the day of admission. An UGI was obtained POD #1 and bariatric clear liquid diet was subsequently started. The patient met with bariatric nursing team the same day and was informed thoroughly regarding goals and objectives going forward regarding bariatric protocol and expectations. They were prepared for discharge POD #2. At the time of discharge patient's vital signs were within normal limits. Patient was voiding spontaneously, tolerating a diet, ambulating independently and having bowel function. Patient's pain was controlled with PO pain meds. Pt was discharged with instructions as follows. CONSULTANTS: none SIGNIFICANT DIAGNOSTIC STUDIES: UGI POD#1 demonstrating no evidence of extravasation or leak, normal post-operative changes. DISCHARGE MEDICATIONS: Medication List START taking these medications ondansetron 4 MG tablet Commonly known as: ZOFRAN Take 1 tablet by mouth 3 times daily as needed for Nausea or Vomiting oxyCODONE-acetaminophen 5-325 MG per tablet Commonly known as: Percocet Take 1 tablet by mouth every 6 hours as needed for Pain for up to 7 days. Intended supply: 7 days. Take lowest dose possible to manage pain CONTINUE taking these medications CPAP Machine Misc STOP taking these medications ondansetron 4 MG disintegrating tablet Commonly known as: Zofran ODT traMADol 150 MG extended release tablet Commonly known as: ULTRAM ER ASK your doctor about these medications Advair Diskus 250-50 MCG/ACT Aepb diskus inhaler Generic drug: fluticasone-salmeterol Inhale 1 puff into the lungs 2 times daily ALPRAZolam 1 MG tablet Commonly known as: Xanax Take 1 tablet by mouth 2 times daily as needed for Sleep for up to 2 days. aspirin 81 MG chewable tablet atorvastatin 80 MG tablet Commonly known as: LIPITOR Take 1 tablet by mouth nightly baclofen 10 MG tablet Commonly known as: LIORESAL buPROPion 150 MG extended release tablet Commonly known as: WELLBUTRIN SR chlorhexidine 4 % external liquid Commonly known as: HIBICLENS Shower the morning of surgery using hibiclens Apply Hibiclens to skin - allow to sit for 5 min - rinse - repeats diclofenac sodium 1 % Gel Commonly known as: VOLTAREN dicyclomine 10 MG capsule Commonly known as: BENTYL Take 1 capsule by mouth 3 times daily (before meals) enoxaparin 300 MG/3ML injection Commonly known as: LOVENOX ergocalciferol 1.25 MG (64425 UT) capsule Commonly known as: ERGOCALCIFEROL Take 1 capsule by mouth once a week for [address] Vitamin Replacement Protocol famotidine 20 MG tablet Commonly known as: Pepcid Take 1 tablet by mouth 2 times daily furosemide 40 MG tablet Commonly known as: LASIX gabapentin 300 MG capsule Commonly known as: NEURONTIN hydrOXYzine pamoate 25 MG capsule Commonly known as: VISTARIL Lantus SoloStar 100 UNIT/ML injection pen Generic drug: insulin glargine levothyroxine 50 MCG tablet Commonly known as: SYNTHROID methocarbamol 750 MG tablet Commonly known as: ROBAXIN ONE-A-DAY MENS 50+ PO oxybutynin 10 MG extended release tablet Commonly known as: Ditropan XL Take 1 tablet by mouth daily pantoprazole 40 (more content not included)...[facility]08-23-2022 Hospital Discharge instructions* Discharge Instructions* Irene Rubin, RD - 12/03/2021 2:23 PM EDT [facility] DIETITIAN DISCHARGE INSTRUCTIONS The following information was reviewed with the patient, and the patient was given a hard copy of these instructions by the Bariatric Registered Dietitian. Overview of Post-Op Diet Protocol for Patients Following Gastric Bypass or Sleeve Gastrectomy Your dietitian will meet with you in the hospital before you are discharged to review the diet in more details and to answer any questions you may have, Day of Surgery (after you wake up from surgery) Nothing to eat or drink Post-op Day 1 If you are having an UGI xray, you will begin your clear liquids after you are notified that the results are back and you are cleared to begin If you are NOT having an UGI xray, you will begin your clear liquids as soon as your nurse notifiesyou that it is OK to start. Post-Op Day 2 Continue your bariatric clear liquid diet Post-op Day 3 Begin full liquid diet and continue until after your 1 week post-op visit You will continue to follow the full liquid diet until after you meet with your dietitian during your 1 week post-op office visit. The next diet phases will be reviewed and discussed with your duringthat visit, If you have questions about your diet(s), please contact the Bariatric Dietitians at [phone]. [facility] DISCHARGE INSTRUCTIONS The following information was reviewed with the patient, and the patient was given a hard copy of these instructions by the Bariatric Registered Dietitian. Bariatric Dietitian Discharge instructions Please follow these instructions until your 1 week office visit General Guidelines: 1. Divide food into three (3) small meals 2. Eat the food Very slowly, using smaller size utensils. If you feel full, STOP eating. 3. Drink liquids 30 minutes before or 30 minutes after meals and snacks. 4.Do not use a straw. 5. Start tracking your protein intake - 65-75 grams daily should be your total. Foods Allowed In addition to all foods permitted on the clear liequid diet, you may have: 1.Diluted fruit juices that are pulp-free. 2. Low-fat, strained cream soups. 3. Sugar-free strained creamed soups 4. Sugar-free pudding with protein powder 5. Sugar substitutes 6. Thin cooked cereals 7. Low-sugar yogurt without fruit 8. Skim milk or 1% milk 9. Lactaid, soy or almond milk 10. Low-fat or nonfat cottage cheese (mashed with a fork and then chewed thoroughly before swallowing) 11. Protein powder 12. High protein, low-sugar beverages and shakes (see list in Patient Education Manual) Irene Rubin MS, RDN, LD [facility] ALUMINUM FABRICATION SUPERVISOR DISCHARGE INSTRUCTIONS The following information was reviewed with the patient, the patient was given a hard copy of theseinstructions by the Bariatric conservation of resources commissioner, and the instructions were signed by the patient. Post-Operative Patient Instructions Laparoscopic Sleeve Gastrectomy Procedure 1. Leave the steri-strips in place (white paper tape over the incisions). They may come off on their own, do not replace if they come off. The stitches are buried under the skin and will dissolve on their own. Use elastic binder as you desire. 2. Take your temperature twice a day for the first post-operative week. Call if temperature is >101 F. 3. You may shower at any point, just blot the incisions dry when you are done. Use only soap and water on the wounds, do not use ointments, lotions, powders or antibiotic ointment. 4. If incisions begin to look infected (redness, swelling, drainage, pain) notify conservation of resources commissioner. 5. You will be discharged home with a drain. It will be removed at your first office visit. Daily dressing changes and twice daily emptying of the grenade is required at home. Milking or stripping the tubing should be done 2-3 times daily. You will be given the supplies needed to perform these tasks. 6. It is also important to observe the color of the drainage in the grenade. The color will record changer assembler time. Normal color changes include Red ? [place] ? [place]/ Yellow ? Amin and will always be clear in appearance. Abnormal color changes include a caramel color (red and cloudy), a brown or black appearance or a color change matching the color of what you just drank. (mix up your flavors) An abnormal color change requires an immediate phone call to the [facility]. 7. Resume your home medications as directed by your surgeon and your nurse disability case manager. Make an appointment with your prescribing physician if you are taking medication for your blood pressure or diabetes. You will need close follow-up regarding your medical conditions, as you will soon be off many of these medications. 8. No aspirin or aspirin containing medications should be taken at all. 9. Follow our food guidelines closely. Remember, clear liquids for the first two days after surgery. No sugar, caffeine or carbonation. Your fluid requirement is 64 oz. per day. You may advance to full liquids on post-op day three. This is in addition to the clear liquid diet. 10. Do not take your calcium, B12 or multivitamin with iron until after your one week appointment. 11. No alcoholic beverages at all during the first 18 months post-op. 12. No lifting, pushing, or pulling over 15 lbs. for one month. You may go up and down stairs. No driving for 1 week after surgery. Do not drive if you are taking prescription pain medication. 13. Walking as part of your daily activities is required immediately. Walking extensively for exercise is not permitted until you are cleared by your surgeon (usually 4-6 weeks after surgery). 14. You will be able to begin exercising in 4-6 weeks, but must be cleared by your surgeon at your one month appointment. 15. Use your incentive spirometer from the hospital for the first post-operative week as instructed, 10 times every other hour while awake. 16. Prior to returning to work, you will be seen, evaluated and cleared by your surgeon. 17. Remember, you will have pain!!! Take your pain medicine so that you are comfortable enough to cough, deep breath and walk. 18. Fatigue is quite common in the first post- operative week. Rest appropriately in response to this fatigue. Remember that mobility after surgery is very important. You must not remain in a sittingor recumbent position for long periods of time. 19. If you have obstructive sleep apnea and have been prescribed a CPAP machine, you must continue to use this device after surgery. 20. Please call the [facility] at [phone] if you have any questions or concerns during business hours: Mon.-Fri. 8:00 a.m. - 4:30 p.m. The answering service may be called during non-business hours at [phone]. 21. Call your surgeon for problems, or if you have any of the following: * Temperature >101 F. (Take your temperature twice a day in the morning and evening until your first office visit) * Redness, pain, swelling or drainage from any of the incisions * Inability to pass urine or have bowel movements * ANY shortness of breath, chest pain, leg swelling or leg pain (in one or both of your legs) * Rapid heart rate * Nausea and/or vomiting with inability to keep liquids down * Bleeding from your rectum * Frequently feeling dizzy or light headed, inability to walk * Abnormal drain color appearance If you have a medical emergency, call 911 or go to the closest hospital emergency room. Your one week and one month follow-up office visits with your surgeon at the [facility] are located in the discharge folder. * Attachments The following attachments cannot be sent through Care Everywhere. * Enoxaparin (Lovenox) (Honduran) * acetaminophen and oxycodone (Honduran) * ondansetron (oral) (Honduran) documented in this encounterSUMXerox Work Phone: 1([phone]) 135-794503-05-2022 Hospital Discharge instructions* Instructions* Ramón Marcus MD - 06/15/2021 Please return to the Emergency Department immediately for new or worsening symptoms or any new concerns. Please follow-up with [your primary care doctor] within the next [3-5] days. * Attachments The following attachments cannot be sent through Care Everywhere. * Abdominal Pain (Honduran) documented in this encounterSUMXerox Work Phone: [phone] 500-153110-14-2021 Hospital Discharge instructions* Instructions* Sriram Harper RN - 01/24/2021 Upper GI Endoscopy: What to expect at home ACTIVITY: DO NOT DRIVE, OPERATE MACHINERY, OR DRINK ANY ALCOHOL TODAY. Avoid making critical decisions, signing legal documents, or performing any activity that requires alertness for the rest of the day. You may be bloated or have gas pains since air was introduced into the stomach for the procedure. You may need to pass the gas throughout the day. You may experience a mild sore throat. You may use an [id number] chloraseptic spray, gargle with warm salt water, or use throat lozenges. Notify your physician if this feeling lasts more than 48 hours. Rest the remainder of the day. You may resume normal activity tomorrow. You may return to work tomorrow. DIET: You may resume a normal diet unless notified or recommended by your physician. You may be eager to eat a large meal after fasting, but it is a good idea to start with light mealsand ease into solid foods the first day. (*) If your stomach is upset, try clear liquids and bland, low-fat foods like plain toast or rice. Drink plenty of fluids for the first 24 hours (unless your physician states otherwise). MEDICATION: Resume your normal home medications unless notified or recommended by your physician. If you take blood thinners (such as Coumadin, Eliquis, Plavix, Aspirin, etc.) or anti-inflammatory medications (Advil, Motrin, Aleve, etc.), ask your physician when you may resume these medications. FOLLOW-UP APPOINTMENT: Follow up with or call your physician as needed. When to call for help: Call your doctor IMMEDIATELY or seek medical care if you experience: Severe pain or vomiting Coughing up more than a teaspoon of blood You pass a large amount of tar-like stools Your belly is swollen and firm with severe pain A fever greater than 101 degrees Redness or swelling of arm from the IV site for more than 48 hours Sudden onset of chest pain or shortness of breath If you become extremely dizzy or pass out (lose consciousness) IF YOU ARE UNABLE TO REACH YOUR PHYSICIAN GO TO NEAREST EMERGENCY DEPARTMENT documented in this encounterSUMMA Work Phone: [phone] History of Present illness Narrative* Lucy Deluca RN - 11/19/2020 2:07 PM EDT Updated family by [facility]. * Inga Newell RN - 11/19/2020 11:47 AM EDT [facility]aker paged to clarify consent order. * Inga Newell RN - 11/19/2020 11:44 AM EDT Anethesia paged for IV start documented in this encounterSUMMA Work Phone: [phone] Hospital Discharge instructions* Instructions* Elba Robison MD - 11/19/2020 Cystoscopy Discharge Instructions You may experience : Burning sensation when you void A feeling of a need to go to the bathroom frequently Your urine may be blood tinged These symptoms should be relieved within a few hours as you increase the amounts of fluids you drink and the number of times that you empty your bladder. We recommended that you drink plenty of fluida few days after surgery. No strenuous activities until you talk to your doctor. You may feel light headed up to 24 hours after anesthesia. You should not do the following for the next [address], operate machinery or power tools Drink any alcoholic drinks (not even beer or wine) Make any important decisions, i.e., signing important papers. It is recommended that you begin with clear liquids and/or light foods. If you Are not nauseated, progress to your normal diet. If you are unable to urinate you should call your surgeon. documented in this encounterSUMMA Work Phone: [phone] Hospital Discharge instructions* Instructions* Rowena Argueta RN - 11/13/2020 Shower with and antibacterial soap such as Dial or Safeguard. Please bring your [facility] Surgical Information folder on the day of surgery. Please louisa the last dose taken (date and time ) on your Daily Medications List provided in your After Visit Summary. Please bring a photo ID and insurance information Do NOT take the following medications on the morning of surgery DEMADEX, ZAROXOLYN TAKE the following medications the morning of your surgery ALBUTEROL, BACTRIM, FLOMAX, BACLOFEN OR FLEXERIL IF NEEDED, OXYBUTYNIN , PHENERGAN IF NEEDED You may take your prescription pain medications. You may take Tylenol (Acetaminophen) if needed forpain. If you are on BLOOD THINNERS or ASPIRIN, STOP ASPIRIN 5 DAYS PRIOR Additional instructions FOLLOW ANY FURTHER INSTRUCTIONS THAT DR WHITTAKER MAY HAVE GIVEN TO YOU You will receive a reminder call the day before surgery with your Same Day Surgery arrival time. If you have specific questions, please call your surgeon. * Attachments The following attachments cannot be sent through Care Everywhere. * Cystoscopy: Post-op (Honduran) * Cystoscopy: Pre-op (Honduran) documented in this encounterSUMMA Work Phone: [phone] History of Present illness Narrative* Rowena Argueta RN - 11/13/2020 12:30 PM EDT SPOKE WITH KATIE IN SURGERY SCHEDULING REGARDING 385 * Rowena Argueta RN - 11/13/2020 12:30 PM EDT Labs obtained on FIRST attempt with 21gauge needle at LEFT HANDsite. Patient tolerated well, site benign. BY Jessie ARGUETA R.N. documented in this encounterSUMXerox Work Phone: [phone] Hospital Discharge instructions* Instructions* Brijesh Coronado DO - 10/30/2020 You were seen in the emerge department for your acute urinary retention. You are able to put out nearly a liter of urine here in the department, and have elected to not have a Cotne put in to avoid this problem again. I encourage you to follow-up with urology as soon as possible, and return if thisproblem returns. * Attachments The following attachments cannot be sent through Care Everywhere. * Urinary Retention (Honduran) documented in this [facility] Work Phone: [phone] Hospital Discharge instructions* Instructions* Libia Ramirez RN - 10/19/2020 Aspirin-stop 5 days prior to surgery. Last dose 10/20/20. Please bring your [facility] Surgical Information folder on the day of surgery. Please louisa the last dose taken (date and time ) on your Daily Medications List provided in your After Visit Summary. Please bring a photo ID and insurance information to 1st floor Do NOT take the following medications on the morning of surgery-Aspirin, Potassium, Bactrim, Cyclophosphamide, Lidocaine, Metolazone, Torsemide. TAKE the following medications the morning of your surgery-Albuterol, Baclofen, Dicyclomine, Pantoprazole, Tamsulosin. You may take Tylenol (Acetaminophen) if needed for pain. You may take Cyclobenzaprine, Promethazine, Senna if needed. You will receive a reminder call the day before surgery with your Same Day Surgery arrival time. If you have specific questions, please call your surgeon. * Attachments The following attachments cannot be sent through Care Everywhere. * Cystoscopy: Pre-op (Honduran) * Cystoscopy: Post-op (Honduran) * Bladder Biopsy (Honduran) * Intravenous Pyelogram (IVP) (Honduran) documented in this encounterSUMXerox Work Phone: [phone] Hospital Discharge instructions* Instructions* Demetrius Devlin PA - 10/04/2020 Please take the muscle relaxers to help with your spasms. Please also take the pain medication and lidocaine patches to help with your chronic pain. Please perform the exercises that I provided. Theymay help you with your symptoms. You do not need any additional neurologic testing at this time. Please follow-up with your specialist. * Attachments The following attachments cannot be sent through Care Everywhere. * Back: Stretches: Exercises (Honduran) documented in this [facility] Work Phone: [phone] History of Present illness Narrative* Rajesh Hicks RN - 10/01/2020 4:30 PM EDT Pt laying in bed in pain 12/21, alert and oriented times four, lungs diminished, abdomen round soft,painful feels like stabbing pain; Heart regular, two pitting edema in BLE and 1 + pulses. Tremors right hand, room air. Pt ask for pain medication which is not due yet. * Mikey Bauman MD - 10/01/2020 11:36 AM EDT [facility] Progress Note Subjective/ 54 y.o. year old male who we are seeing in consultation for nephrotic syndrome and volume issues. Interval Hx: Good response to diuresis, UO good Leg swelling improving Low K today, 40 PO ordered today by primary Denies any sob Feels better naeon ROS (-) except above No changes noted in PMFSH Objective/ Vitals: 10/01/20 0646 10/01/20 0729 10/01/20 1108 10/01/20 1114 BP: 134/74 104/61 Pulse: 73 71 Resp: 18 18 18 Temp: 96.8 F (36 C) 96.7 F (35.9 C) TempSrc: Temporal Temporal SpO2: 92% 96% 96% Weight: (!) 362 lb 3.2 oz (164.3 kg) Height: 24HR INTAKE/OUTPUT: Intake/Output Summary (Last 24 hours) at 10/01/2020 1136 Last data filed at 10/01/2020 0415 Gross per 24 hour Intake 640 ml Output 2450 ml Net -1810 ml General: NAD, Comfortable appearing, cooperative to history and physical exam. Head: AT NC Eyes: No icterus, no pallor Neck: Supple, no jvd Chest: ant chest B/L clear, no crackles, no accessory muscles usage. CV: RRR, no murmurs or rubs Abdomen: Obese, soft, ND, BS +, diffuse tend on palpation Extremities: Bilateral LE edema 1+ , no tremor Neurological: Moving all four extremities Psychiatric: Normal insight and judgement, good recall, cooperative : no conte is noted in place Skin: No rashes on legs or arms, no bullae. Current Facility-Administered Medications Medication Dose Route Frequency Provider Last Rate Last Admin albuterol (PROVENTIL) nebulizer solution 2.5 mg 2.5 mg Nebulization Q4H PRN Yovani Ansari MD 2.5 mg at 10/01/20 0010 potassium chloride (KLOR-CON M) extended release tablet 40 mEq 40 mEq Oral BID Yovani Ansari MD 40 mEq at 10/01/20 0938 furosemide (LASIX) injection 40 mg 40 mg Intravenous BID Yovani Ansari MD 40 mg at 10/01/20 0942 sulfamethoxazole-trimethoprim (BACTRIM DS;SEPTRA DS) 800-160 MG per tablet 1 tablet 1 tablet Oral QMWF Garcia Medrano MD 1 tablet at 10/01/20 0938 furosemide (LASIX) injection 40 mg 40 mg Intravenous BID Garcia Medrano MD 40 mg at 09/30/20 1703 acetaminophen (TYLENOL) tablet 1,000 mg 1,000 mg Oral Q8H Yovani Ansari MD 1,000 mg at 10/01/20 05 pregabalin (LYRICA) capsule 75 mg 75 mg Oral BID Yovani Ansari MD 75 mg at 10/01/20 0937 sodium chloride flush 0.9 % injection 5-40 mL 5-40 mL Intravenous 2 times per day Yovani Ansari MD 10 mL at 10/01/20 1007 sodium chloride flush 0.9 % injection 5-40 mL 5-40 mL Intravenous PRN Yovani Ansari MD 0.9 % sodium chloride infusion 25 mL Intravenous PRN Yovani Ansari MD enoxaparin (LOVENOX) injection 40 mg 40 mg Subcutaneous Daily Yovani Ansari MD 40 mg at 10/01/20937 ondansetron (ZOFRAN-ODT) disintegrating tablet 4 mg 4 mg Oral Q8H PRN Yovani Ansari MD 4 mg at09/30/20618 Or ondansetron (ZOFRAN) injection 4 mg 4 mg Intravenous Q6H PRN Yovani Ansari MD 4 mg at polyethylene glycol (GLYCOLAX) packet 17 g 17 g Oral Daily PRN Yovani Ansari MD acetaminophen (TYLENOL) tablet 650 mg 650 mg Oral Q6H PRN Yovani Ansari MD Or acetaminophen (TYLENOL) suppository 650 mg 650 mg Rectal Q6H PRN Yovani Ansari MD tamsulosin (FLOMAX) capsule 0.4 mg 0.4 mg Oral Daily Yovani Ansari MD 0.4 mg at 10/01/20937 cyclophosphamide (CYTOXAN) 50 MG capsule CAPS 150 mg 150 mg Oral BID Yovani Ansari MD 150 mg at 10/01/20 09 baclofen (LIORESAL) tablet 10 mg 10 mg Oral TID PRN Yovani Ansari MD 10 mg at 10/01/20937 aspirin chewable tablet 81 mg 81 mg Oral Daily Yovani Ansari MD 81 mg at 10/01/20 09 atorvastatin (LIPITOR) tablet 80 mg 80 mg Oral Nightly Yovani Ansari MD 80 mg at 09/30/202048 polyethylene glycol (GLYCOLAX) packet 17 g 17 g Oral Daily Yovani Ansari MD sennosides-docusate sodium (SENOKOT-S) 8.6-50 MG tablet 2 tablet 2 tablet Oral Daily Yovani Ansari MD 2 tablet at 09/30/20 0834 lidocaine 4 % external patch 1 patch 1 patch Transdermal Daily Yovani Ansari MD 1 patch at 10/01/20 0937 metOLazone (ZAROXOLYN) tablet 2.5 mg 2.5 mg Oral Daily Garcia Medrano MD 2.5 mg at 10/01/20 0938 melatonin tablet 3 mg 3 mg Oral Nightly PRN Kirstin Sánchez MD 3 mg at 09/30/202037 ipratropium-albuterol (DUONEB) nebulizer solution 1 ampule 1 ampule Inhalation Q4H WA Kirstin Sánchez MD 1 ampule at 10/01/20 1108 sodium chloride Data/ Recent Labs 09/29/20 0313 09/30/20 0238 10/01/20 0409 WBC 5.5 4.0 5.3 HGB 12.8* 11.9* 12.5* HCT 36.6* 34.5* 36.4* MCV 85.7 86.0 85.7 PLT 181 168 220 Recent Labs 09/29/20 0313 09/30/20 0238 10/01/20 0409 NA 136 138 136 K 3.7 3.2* 3.0* CL 104 103 98 CO2 27 32* 32* GLUCOSE 214* 154* 154* MG 2.1 2.0 2.0 BUN 16 15 19 CREATININE 1.22 1.30* 1.41* Assessment/ 1. Nephrotic syndrome 2. Membranous Nephropathy, bx proven 3. Immunosuppression 4. Leg edema 5. Back pain chronic 6. abd pain, ? etiology 7. Morbid obesity BMI 49.08 Plan: - creatinine close to baseline, nonoliguric, BP stable - volume status appears hypervol, improving -consider transition to po lasix today, continue metolazone 2.5 mg qd - continue the Bactrim home dose - avoid nephrotoxins and IV contrast - encourage oral intake, better appetite today - replace K prn - watch bicarb - no need for IV fluids at this time, continue on FR 1500 cc/day, 2 gm Na/day low-salt diet - daily weight - strict I&O - other problems per primary service - will follow/call with questions * Yovani Ansari MD - 10/01/2020 10:52 AM EDT Images from the original note were not included. Medical Teaching Service Progress Note Patient: Sophie Hicks : 1965 Acct: [id number] PCP: Naima Rodriguez MD Admitting Physician: Francisco J Saavedra MD Admission Date: 09/29/2020 Admitting Diagnosis: Fluid overload [E87.70] Nephrotic syndrome [N04.9] Unit/Bed: 266/2662 Hospital Day: 1 Code Status: Full Code Subjective: Overnight events: no acute events Patient feeling improved today, pain adequately controlled Discussed his lyrica regimen and neuropathic leg pain. We discussed possible homegoing pending nephrology recs, patient requested an additional dose of IV lasix this morning prior to any potential departure, We discussed increase home diuretic dose to Lasix 40mg oral BID, and reducing later with pcp vs nephro follow up Objective: Vitals: 10/01/20 0010 10/01/20 0317 10/01/20 0646 10/01/20 0729 BP: 117/74 134/74 Pulse: 86 73 Resp: 18 18 Temp: 96.8 F (36 C) 96.8 F (36 C) TempSrc: Temporal Temporal SpO2: 96% 95% 92% Weight: (!) 362 lb 3.2 oz (164.3 kg) Height: Intake/Output Summary (Last 24 hours) at 10/01/2020 1052 Last data filed at 10/01/2020 0415 Gross per 24 hour Intake 640 ml Output 2950 ml Net -2310 ml Physical Exam Physical Exam Constitutional: General: Distressed: No longer in acute distress Appearance: He is obese. He is not ill-appearing. HENT: Head: Atraumatic. Mouth/Throat: Mouth: Mucous membranes are moist. Pharynx: Oropharynx is clear. Eyes: Extraocular Movements: Extraocular movements intact. Conjunctiva/sclera: Conjunctivae normal. Pupils: Pupils are equal, round, and reactive to light. Cardiovascular: Rate and Rhythm: Normal rate and regular rhythm. Pulses: Normal pulses. Heart sounds: Normal heart sounds. Comments Pulmonary: Effort: Pulmonary effort is normal. Breath sounds: Normal breath sounds. Abdominal: General: Bowel sounds are normal. There is improvement to abdominal distension Tenderness: There is right CVA tenderness persists mildly, (Cutaneous hypersensitivity still manifests). There is no left CVA tenderness. Comments: no visible viral rash or outward injury presenation, cannot rule out shingles Musculoskeletal: Cervical back: Normal range of motion and neck supple. Neurological: Mental Status: He is alert. Conte: No Drains: No Central Line/Port: No Diet: ADULT DIET; Regular; 4 carb choices (60 gm/meal); 1500 ml Medications: potassium chloride 40 mEq Oral BID furosemide 40 mg Intravenous BID sulfamethoxazole-trimethoprim 1 tablet Oral Q MWF furosemide 40 mg Intravenous BID acetaminophen 1,000 mg Oral Q8H pregabalin 75 mg Oral BID sodium chloride flush 5-40 mL Intravenous 2 times per day enoxaparin 40 mg Subcutaneous Daily tamsulosin 0.4 mg Oral Daily cyclophosphamide 150 mg Oral BID aspirin 81 mg Oral Daily atorvastatin 80 mg Oral Nightly polyethylene glycol 17 g Oral Daily sennosides-docusate sodium 2 tablet Oral Daily lidocaine 1 patch Transdermal Daily metOLazone 2.5 mg Oral Daily ipratropium-albuterol 1 ampule Inhalation Q4H WA Continuous Infusions: sodium chloride PRN Meds:albuterol, sodium chloride flush, sodium chloride, ondansetron OR ondansetron, polyethylene glycol, acetaminophen OR acetaminophen, baclofen, melatonin Labs: CBC: Recent Labs 09/29/203 09/30/208 10/01/20 0409 WBC 5.5 4.0 5.3 RBC 4.28* 4.01* 4.25* HGB 12.8* 11.9* 12.5* HCT 36.6* 34.5* 36.4* MCV 85.7 86.0 85.7 RDW 14.5 14.3 14.3 PLT 181 168 220 BMP: Recent Labs 09/29/203 09/30/20 0238 10/01/20 0409 NA 136 138 136 K 3.7 3.2* 3.0* CL 104 103 98 CO2 27 32* 32* BUN 16 15 19 CREATININE 1.22 1.30* 1.41* GLUCOSE 214* 154* 154* CALCIUM 8.7 8.4 8.8 ANIONGAP 6 2* 6 LIVER PROFILE: Recent Labs 09/29/20 0313 09/30/20 0238 10/01/20 0409 AST 48* 46 43 ALT 30 31 29 BILITOT 0.8 0.4 0.5 ALKPHOS 58 53 54 LABALBU 3.5 3.0* 3.5 PROT 6.6 5.9* 6.4 PT/INR:No results for input(s): PROTIME, INR in the last 72 hours. CARDIAC ENZYMES: Recent Labs 09/29/20312 TROPONINI <0.012 Procalcitonin: Lab Results Component Value Date PROCAL 0.10 04/29/2020 Glucose: No results for input(s): POCGLU in the last 72 hours. ASSESSMENT/PLAN: 1. Fluid overload 2/2 nephrotic syndrome Diffuse membranous glomerulonephritis Being treated with steroid/ Cytoxan per Obs to [facility] -Pain Control (pain mgmt, no opiods) Tylenol 1000mg TID, Lyrica 75mg BID -Nephro consulted -IV lasix 40mg BID- will discharge with furosemide 40mg qday vs bid to replace torsemide -patient counseled on proper diet and fluid restriction with his Nephrotic syndrome -Continue flomax 0.4mg qhs -Continue PPX bactrim 800-160 MWF -Holding home Metalozone 2.5mg daily -Cyclophosphamide 150mg BID -Strict I/O -Daily Standing Weight -CBC/BMP daily -PT/OT SW/CM 2. Chronic pain syndrome 2/2 spondylosis and spine DJD Seen by neurosurgery and MRI done on prior admit, is a poor surgical candidate with high M/M unlesshe reduces his weight. -Baclofen 10mg TID prn -Lidocaine patch right flank/lumbar back -continue home lyrica as above CAD - ASA 81mg daily - Atorvastatin 80mg qhs GERD - Pantoprazole 40mg daily Chronic constipation/abdominal cramping - Dicyclomine 10mg TID - Sennakot qhs Sleep Apnea (w/o confirmatory study) -Autopap QHS, nocturnal pulse oximetry FEN/GI/DVT: IVF: None Electrolytes: Monitor and replace per protocols Diet: Diabetic GI PPX: PPI DVT Prophylaxis: Lovenox CODE STATUS: Full DISPOSITION: Anticipate patient discharge in next day with home health pending any change in specialists recs vs clinical course * Cydney Farrar - 10/01/2020 8:37 AM EDT Nutrition rescreen completed. Patient referred to the Dietitian. * Francisco J Saavedra MD - 09/30/2020 10:13 AM EDT Images from the original note were not included. Medical Teaching Service History & Physical Patient: Sophie Hicks : 1965 Acct: [id number] PCP: Naima Rodriguez MD Admitting Physician: Francisco J Saavedra MD Admission Date: 09/29/2020 Chief Complaint Patient presents with Abdominal Pain History of Present Illness: 54 y.o. male Sophie Hicks is a 54 y.o. male presenting for increased abdominal and right flank pain since Thursday with Nausea/Vomiting. He has neuropathic pain extending into his bilateral legs 2/2 spondylosis and DJD of the spine. He has complaint of decreased urinary output with trickle of flow,feels like something is blocking it reports increased abdominal distension, and swelling of bilate ral feet. Right flank and CVA pain is focal 8/10 even s/p morphine, with sensitivity to touch.then radiates to his back and across abdomen, denies significant tenderness to left flank or to pressure on abdomen or feet. Did discuss with patient that when he has pain crisis that he should contact hispain management DrChristine Prior to presenting to ED, as it could compromise his treatment plan if we had Rx outpatient opioids. Past Medical History: Diagnosis Date Benign essential HTN 01/29/2015 Blood circulation, collateral CAD (coronary artery disease) mild - dx on cath - neg stress Cerebral artery occlusion with cerebral infarction (HCC) CHF (congestive heart failure) (HCC) Chronic kidney disease COPD (chronic obstructive pulmonary disease) (HCC) COVID-19 05/03 CS (cervical spondylosis) 12/25/2004 CERVICAL SPINE DJD GERD (gastroesophageal reflux disease) History of colonic polyps 06/21/2013 repeat 2019 Hyperlipidemia Insomnia 08/15/2014 Past Surgical History: Procedure Laterality Date APPENDECTOMY COLONOSCOPY ENDOSCOPY, COLON, DIAGNOSTIC NECK SURGERY Posterior cervical fusion ROTATOR CUFF REPAIR Bilateral Social History Socioeconomic History Marital status: Spouse name: Libia Number of children: Not on file Years of education: Not on file Highest education level: Not on file Occupational History Not on file Tobacco Use Smoking status: Never Smoker Smokeless tobacco: Never Used Vaping Use Vaping Use: Never used Substance and Sexual Activity Alcohol use: No Drug use: No Sexual activity: Not on file Other Topics Concern Not on file Social History Narrative Not on file Social Determinants of Health Financial Resource Strain: Difficulty of Paying Living Expenses: Food Insecurity: Worried About Running Out of Food in the Last Year: Ran Out of Food in the Last Year: Transportation Needs: Lack of Transportation (Medical): Lack of Transportation (Non-Medical): Physical Activity: Days of Exercise per Week: Minutes of Exercise per Session: Stress: Feeling of Stress : Social Connections: Frequency of Communication with Friends and Family: Frequency of Social Gatherings with Friends and Family: Attends Confucianist Services: Active Member of Clubs or Organizations: Attends Club or Organization Meetings: Marital Status: Intimate Partner Violence: Fear of Current or Ex-Partner: Emotionally Abused: Physically Abused: Sexually Abused: Family History Problem Relation Age of Onset Lung Cancer Mother smoker Osteoarthritis Mother Coronary Art Dis Grandmother No current facility-administered medications on file prior to encounter. Current Outpatient Medications on File Prior to Encounter Medication Sig Dispense Refill pregabalin (LYRICA) 50 MG capsule Take 50 mg by mouth 3 times daily. lidocaine 4 % external patch Place 1 patch onto the skin daily 3 patch 0 cyclophosphamide (CYTOXAN) 50 MG CAPS capsule Take 3 capsules by mouth 2 times daily 180 capsule 0 torsemide (DEMADEX) 20 MG tablet Take 1 tablet by mouth 2 times daily 30 tablet 3 gabapentin (NEURONTIN) 300 MG capsule Take 2 capsules by mouth 3 times daily for 30 days. 180 capsule 0 albuterol sulfate HFA (VENTOLIN HFA) 108 (90 Base) MCG/ACT inhaler Take 2 puffs by mouth 4 times daily as needed (Patient not taking: Reported on 09/18/2020) tamsulosin (FLOMAX) 0.4 MG capsule Take 0.4 mg by mouth daily baclofen (LIORESAL) 10 MG tablet Take 5 mg by mouth 3 times daily as needed (back pain) atorvastatin (LIPITOR) 80 MG tablet Take 1 tablet by mouth nightly 30 tablet 3 sulfamethoxazole-trimethoprim (BACTRIM DS;SEPTRA DS) 800-160 MG per tablet Take 1 tablet by mouth three times a week (Patient taking differently: Take 1 tablet by mouth daily ) 30 tablet 0 aspirin 81 MG chewable tablet Take 81 mg by mouth daily dicyclomine (BENTYL) 10 MG capsule Take 1 capsule by mouth 3 times daily (before meals) (Patient taking differently: Take 10 mg by mouth three times daily ) 120 capsule 3 pantoprazole (PROTONIX) 40 MG tablet Take 1 tablet by mouth 2 times daily (with meals) 30 tablet 1 albuterol sulfate HFA (VENTOLIN HFA) 108 (90 Base) MCG/ACT inhaler Inhale 2 puffs into the lungs 4 times daily as needed for Wheezing Use every Four hours for the next 2 days then May switch to everyfour hours as needed. 2 Inhaler 0 Allergies: Iv contrast [iodides] and Nsaids Review of Systems Constitutional: Positive for activity change. Negative for chills. Gastrointestinal: Positive for abdominal pain, nausea and vomiting. Right flank pain Genitourinary: Positive for difficulty urinating and flank pain. Negative for discharge, penile swelling, scrotal swelling and testicular pain. Skin: Cutaneous tenderness of right flank Vitals: Vitals: 09/29/20 1517 09/29/20 2332 09/30/20 0640 09/30/20 0728 BP: (!) 126/54 131/68 121/71 Pulse: 80 65 102 Resp: 18 18 20 Temp: 96.4 F (35.8 C) 96.8 F (36 C) 97.7 F (36.5 C) TempSrc: Temporal Temporal Temporal SpO2: 95% 98% 93% Weight: (!) 377 lb (171 kg) Height: Physical Exam Constitutional: General: Distressed: Moderate distress/discomfort. Appearance: He is obese. He is not ill-appearing. HENT: Head: Atraumatic. Mouth/Throat: Mouth: Mucous membranes are moist. Pharynx: Oropharynx is clear. Eyes: Extraocular Movements: Extraocular movements intact. Conjunctiva/sclera: Conjunctivae normal. Pupils: Pupils are equal, round, and reactive to light. Cardiovascular: Rate and Rhythm: Normal rate and regular rhythm. Pulses: Normal pulses. Heart sounds: Normal heart sounds. Comments: Tachy in between pain control doses Pulmonary: Effort: Pulmonary effort is normal. Breath sounds: Normal breath sounds. Abdominal: General: Bowel sounds are normal. There is distension (significant rounded/distended belly w/o appreciable mass or rebound, some fluid w/o wave). Tenderness: There is right CVA tenderness (focal tenderness to palpation, rolls to other side of bed, cutaneous hypersensitivity,). There is no left CVA tenderness. Comments: Some diffuse tenderness to his abdomen, focal tenderness over right flank and CVA Musculoskeletal: Cervical back: Normal range of motion and neck supple. Neurological: Mental Status: He is alert. I have independently seen and examined the patient. I have reviewed the resident physician's note and agree with the assessment and plan of care as documented. FRANCISCO J SAAVEDRA MD Labs: Results for orders placed or performed during the hospital encounter of 09/29/20 Culture, Urine Specimen: Urine Result Value Ref Range Urine Culture, Routine Normal urogenital nisha present. Basic Metabolic Panel Result Value Ref Range Sodium 136 135 - 145 mmol/L Potassium 3.7 3.5 - 5.1 mmol/L Chloride 104 98 - 107 mmol/L CO2 27 22 - 30 mmol/L Anion Gap 6 3 - 13 mmol/L Glucose 214 (H) 70 - 100 mg/dL BUN 16 7 - 20 mg/dL CREATININE 1.22 0.52 - 1.25 mg/dL eGFR 75.8 >60 mL/min EGFR IF NonAfrican [place]i 65.4 >60 mL/min Calcium 8.7 8.4 - 10.4 mg/dL Hepatic Function Panel Result Value Ref Range Albumin,Serum 3.5 3.5 - 5.0 g/dL Total Protein 6.6 6.3 - 8.2 g/dL Total Bilirubin 0.8 0.2 - 1.3 mg/dL Bilirubin, Direct 0.0 0.0 - 0.3 mg/dL Alkaline Phosphatase 58 38 - 126 U/L ALT 30 0 - 49 U/L AST 48 (H) 15 - 46 U/L Lactic Acid, Plasma Result Value Ref Range Lactic Acid 1.8 0.7 - 2.0 mmol/L Lipase Result Value Ref Range Lipase 102 23 - 300 U/L Hemogram (CBC) w/Auto Diff Result Value Ref Range WBC 5.5 3.6 - 10.7 10*3/uL RBC 4.28 (L) 4.40 - 5.90 10*6/uL Hemoglobin 12.8 (L) 13.0 - 18.0 g/dL Hematocrit 36.6 (L) 40.0 - 52.0 % MCV 85.7 80.0 - 98.0 fL MCH 29.9 26.0 - 34.0 pg MCHC 34.9 32.0 - 36.0 % RDW 14.5 11.5 - 14.5 % Platelets 181 140 - 440 10*3/uL MPV 6.4 (L) 7.4 - 10.4 fL Granulocytes % 60.6 40.0 - 80.0 % Lymphocyte % 22.7 20.0 - 40.0 % Monocytes 12.8 (H) 2.0 - 10.0 % Eosinophils 2.7 1.0 - 6.0 % Basophils 1.2 0.0 - 2.0 % Absolute Neut # 3.3 1.8 - 7.0 10*3/uL Absolute Lymph # 1.2 1.0 - 4.3 10*3/uL Absolute Perry # 0.7 0.0 - 0.8 10*3/uL Absolute Eos # 0.1 0.0 - 0.5 10*3/uL Absolute Baso # 0.1 0.0 - 0.2 10*3/uL Magnesium Result Value Ref Range Magnesium 2.1 1.6 - 2.3 mg/dL Urinalysis Result Value Ref Range Glucose, Ur 50 Normal (<70) mg/dL Total Protein, Urine 600 (A) Negative mg/dL Bilirubin Urine Negative Negative mg/dL Urobilinogen, Urine 2 (A) Normal (0-1) mg/dL pH, Urine 6.0 5.0 - 8.0 NA Specific Kirwin, Urine 1.028 1.005 - 1.030 NA Occult Blood,Urine 0.1 (A) Negative mg/dL Ketones, Urine Negative Negative mg/dL Nitrite, Urine Negative Negative NA LEUKOCYTES, UA Negative Negative Caprice/uL Appearance Clear Clear NA Color, Urine Yellow Lt. Yellow NA RBC, UA 0-2 0 - 2 /[HPF] WBC, UA 6-10 (A) 0 - 5 /[HPF] Squam Epithel, UA 0-2 3 - 5 /[HPF] Bacteria, UA Few (A) Negative /[HPF] Mucous Threads Few Negative /[LPF] Hyaline Casts, UA 0-2 (A) Negative /[LPF] Granular Casts, UA 0-2 (A) Negative /[LPF] Add On Lab Test Result Value Ref Range Add On Accepted NA Add On Lab Test Result Value Ref Range Add On Accepted NA Troponin Result Value Ref Range Troponin I <0.012 0.000 - 0.034 ng/mL Add On Lab Test Result Value Ref Range Add On Accepted NA Brain Natriuretic Peptide Result Value Ref Range NT Pro-BNP 53 0 - 125 pg/mL Sodium, Urine, Random Result Value Ref Range SODIUM, RANDOM URINE 99 (H) 30 - 90 mmol/L Creatinine, Random Urine Result Value Ref Range CREATININE, RANDOM URINE 87.3 No Range mg/dL Protein, urine, random Result Value Ref Range Protein, Urine, Random 108 (H) No Range mg/dL Comprehensive Metabolic Panel w/ Reflex to MG Result Value Ref Range Sodium 138 135 - 145 mmol/L Potassium 3.2 (L) 3.5 - 5.1 mmol/L Chloride 103 98 - 107 mmol/L CO2 32 (H) 22 - 30 mmol/L Anion Gap 2 (L) 3 - 13 mmol/L Glucose 154 (H) 70 - 100 mg/dL BUN 15 7 - 20 mg/dL CREATININE 1.30 (H) 0.52 - 1.25 mg/dL eGFR 70.2 >60 mL/min EGFR IF NonAfrican [place]i 60.6 >60 mL/min Calcium 8.4 8.4 - 10.4 mg/dL Albumin,Serum 3.0 (L) 3.5 - 5.0 g/dL Total Protein 5.9 (L) 6.3 - 8.2 g/dL Total Bilirubin 0.4 0.2 - 1.3 mg/dL Alkaline Phosphatase 53 38 - 126 U/L ALT 31 0 - 49 U/L AST 46 15 - 46 U/L CBC auto differential Result Value Ref Range WBC 4.0 3.6 - 10.7 10*3/uL RBC 4.01 (L) 4.40 - 5.90 10*6/uL Hemoglobin 11.9 (L) 13.0 - 18.0 g/dL Hematocrit 34.5 (L) 40.0 - 52.0 % MCV 86.0 80.0 - 98.0 fL MCH 29.6 26.0 - 34.0 pg MCHC 34.4 32.0 - 36.0 % RDW 14.3 11.5 - 14.5 % Platelets 168 140 - 440 10*3/uL MPV 6.0 (L) 7.4 - 10.4 fL Granulocytes % 48.4 40.0 - 80.0 % Lymphocyte % 35.5 20.0 - 40.0 % Monocytes 10.1 (H) 2.0 - 10.0 % Eosinophils 5.0 1.0 - 6.0 % Basophils 1.0 0.0 - 2.0 % Absolute Neut # 1.9 1.8 - 7.0 10*3/uL Absolute Lymph # 1.4 1.0 - 4.3 10*3/uL Absolute Perry # 0.4 0.0 - 0.8 10*3/uL Absolute Eos # 0.2 0.0 - 0.5 10*3/uL Absolute Baso # 0.0 0.0 - 0.2 10*3/uL Magnesium Result Value Ref Range Magnesium 2.0 1.6 - 2.3 mg/dL Radiology review: MRI THORACIC SPINE WO CONTRAST Result Date: 09/12/2020 Patient Name: SOPHIE HICKS [facility] ACCESSION EXAM DATE/TIME PROCEDURE ORDERING PROVIDER [id number] 09/12/2020 16:05 EDT MRI Spine Thoracic w/o [id number] KRISTIN SIEGEL Contrast CPT code 42857 Reason For Exam (MRI Spine Thoracic w/o Contrast) back spasms, history of cervicalgia, having LE weakness and inability to ambulate Report Indication: Backspasms. MRI of the thoracic spine without contrast. T1 and T2- weighted sagittal and axial, and inversion recovery sagittal images of the thoracic spine performed. Thoracic vertebral body height is maintained. No anterior or posterior listhesis. No concerning areas of marrow edema. Posterior disc protrusion at T7-T8. Flattening of the ventral aspect of the thecal sac. Protruding disc abuts the theventral aspect of the thoracic cord in the midline and to the right of midline. No definite cord flattening. No other disc protrusions in the thoracic spine. Degenerative disc and endplate changes atC6- C7. Posterior disc protrusion at C6-C7 causes flattening of the ventral aspect of the thecal sacwithout definite cervical cord impingement. Images degraded by patient body habitus. IMPRESSION: Degenerative disc protrusion at T7-T8. Protruding disc abuts the ventral aspect of the thoracic cord in the midline and to the right of midline. No definite thoracic cord flattening. No signal abnormalities of the thoracic cord. Report Dictated on --- Final --- Dictating Physician: MD FAULKNER LAURA Signed Date and Time: 09/12/2020 4:42 pm Signed by: MD FAULKNER LAURA Transcribed Date and Time: 09/12/2020 4:43 MRI LUMBAR SPINE WO CONTRAST Result Date: 09/12/2020 Patient Name: SOPHIE HICKS [facility] ACCESSION EXAM DATE/TIME PROCEDURE ORDERING PROVIDER [id number] 09/12/2020 15:45 EDT MRI Spine Lumbar w/o [id number] KIRSTIN SIEGEL Contrast CPT code 68487 Reason For Exam (MRI Spine Lumbar w/o Contrast) back spasms, history of cervicalgia, having LE weakness and inability to ambulate Report Indication: Shortness of breath. Back spasms. MRI lumbar spine without contrast. T1 and T2- weighted sagittal and axial, and inversion recovery sagittal images of the lumbar spine performed. Sagittal images show normal height of the lumbar vertebral bodies without anterior or posterior listhesis. Disc spaces are maintained. No concerning areas of marrow edema. Conus medullaris terminates at the T12 level. T12-L1: Discspace is maintained. No canal or foraminal stenosis. L1-L2: Disc space is maintained. No canal or foraminal stenosis. L2-L3: Disc space is maintained. No canal or foraminal stenosis. L3-L4: Mild diffuse disc bulge. Mild facet hypertrophy. Small amount of fluid in the facet joints. Mild bilateral foraminal stenosis. L4-L5: Diffuse disc bulge. Left paracentral and foraminal disc protrusion. Protruding disc contacts the left L5 nerve root. Mild posterior displacement of the left L5 nerve root. Protruding disc lies adjacent to the emerging left L4 nerve root. Facet hypertrophy. Mild endplate hyper trophy. Fluid in the facet joints. Moderate canal stenosis. Moderate left foraminal stenosis. L5-S1: Disc space is maintained. No canal or foraminal stenosis. IMPRESSION: Degenerative disc, endplate and facet changes at L4-L5. Broad-based left paracentral and foraminal disc protrusion at L4-L5. Mild posterior displacement of the left L5 nerve root in the left lateral recess. Protruding disc lies adjacent to the emerging left L4 nerve root. Magnetic Resonance Imaging Report Report Dictated on --- Final --- Dictating Physician: MD FAULKNER LAURA Signed Date and Time:09/12/2020 4:33 pm Signed by: MD FAULKNER LAURA Transcribed Date and Time: 09/12/2020 4:34 CT Abdomen Pelvis Wo Contrast Result Date: 09/29/2020 [id number] ACCESSION EXAM DATE/TIME PROCEDURE ORDERING PROVIDER [id number] 09/29/2020 03:[address] Abdomen/Pelvis (No [id number] -KIBE, JULIANNE PO, No IV) CPT code 49726 Reason For Exam (CT Abdomen/Pelvis (No PO, No IV)) Patient with RUQ pain and rt CVA tenderness allergic to IV contrast Report CT ABDOMEN AND PELVIS WITHOUT CONTRAST CLINICAL INDICATION: Right upper quadrant pain Serial axial CT images of the abdomen and pelvis were acquired without intravenous contrast. Oral contrast was not given for this study. COMPARISON: 08/09/2020 FINDINGS: There is no hydronephrosis, hydroureter, or perinephric stranding bilaterally. No renal or ureteral stones are identified. The urinary bladder is empty, limiting evaluation. The prostate does not appear enlarged. The liver, gallbladder, spleen, pancreas, and adrenal glands are grossly unremarkable in appearance on this noncontrast examination. No retroperitoneal or pelvic lympha denopathy is seen. The abdominal aorta is normal in caliber. The large and small bowel is unremarkable in appearance, without evidence of thickening or dilatation. The appendix appears normal. No free fluid is seen within the abdomen or pelvis. There is no free air under the diaphragm. The visualized portion of the lung bases are clear. No lytic or blastic lesions are seen on the bone windows. IMPRESSION: No renal or ureteral stones are seen. No hydronephrosis, hydroureter, or perinephric stranding is seen bilaterally. No acute findings are seen on this examination to explain the patient's pain. Computed Tomography Report Report Dictated on Workstation: [id number] --- Final --- Dictating Physician: MD SEGURA JONATHAN R Signed Date and Time: 09/29/2020 3:48 am Signed by: MD SEGURA JONATHAN R Transcribed Date and Time: 09/29/2020 3:49 EKG: n/a ED medications: Medications acetaminophen (TYLENOL) tablet 1,000 mg (1,000 mg Oral Given 09/30/20 0504) pregabalin (LYRICA) capsule 75 mg (75 mg Oral Given 09/30/20832) sodium chloride flush 0.9 % injection 5-40 mL (10 mLs Intravenous Given 09/30/20 0835) sodium chloride flush 0.9 % injection 5-40 mL (has no administration in time range) 0.9 % sodium chloride infusion (has no administration in time range) enoxaparin (LOVENOX) injection 40 mg (40 mg Subcutaneous Given 09/30/2034) ondansetron (ZOFRAN-ODT) disintegrating tablet 4 mg (4 mg Oral Given 09/30/20618) Or ondansetron (ZOFRAN) injection 4 mg ( Intravenous See Alternative 09/30/20618) polyethylene glycol (GLYCOLAX) packet 17 g (has no administration in time range) acetaminophen (TYLENOL) tablet 650 mg (has no administration in time range) Or acetaminophen (TYLENOL) suppository 650 mg (has no administration in time range) tamsulosin (FLOMAX) capsule 0.4 mg (0.4 mg Oral Given 09/30/20 0833) cyclophosphamide (CYTOXAN) 50 MG capsule CAPS 150 mg (150 mg Oral Given 09/30/20 0834) baclofen (LIORESAL) tablet 10 mg (10 mg Oral Given 09/30/20 0506) aspirin chewable tablet 81 mg (81 mg Oral Given 09/30/20832) atorvastatin (LIPITOR) tablet 80 mg (80 mg Oral Given 09/29/202105) polyethylene glycol (GLYCOLAX) packet 17 g (17 g Oral Not Given 09/30/20836) sennosides-docusate sodium (SENOKOT-S) 8.6-50 MG tablet 2 tablet (2 tablets Oral Given 09/30/20833) lidocaine 4 % external patch 1 patch (1 patch Transdermal Patch Applied 09/30/20833) metOLazone (ZAROXOLYN) tablet 2.5 mg (2.5 mg Oral Given 09/30/20832) melatonin tablet 3 mg (3 mg Oral Given 09/29/202104) ipratropium-albuterol (DUONEB) nebulizer solution 1 ampule (has no administration in time range) sulfamethoxazole-trimethoprim (BACTRIM DS;SEPTRA DS) 800-160 MG per tablet 1 tablet (has no administration in time range) furosemide (LASIX) injection 40 mg (has no administration in time range) morphine injection 4 mg (4 mg Intravenous Given 09/29/20318) ondansetron (ZOFRAN) injection 4 mg (4 mg Intravenous Given 09/29/20318) 0.9 % sodium chloride bolus (0 mLs Intravenous Stopped 09/29/20436) morphine injection 4 mg (4 mg Intravenous Given 09/29/20435) furosemide (LASIX) injection 40 mg (40 mg Intravenous Given 09/29/20627) furosemide (LASIX) injection 40 mg (40 mg Intravenous Given 09/30/20833) potassium chloride (KLOR-CON M) extended release tablet 40 mEq (40 mEq Oral Given 09/30/20832) ED COURSE: IV morphine 4mg, 2L fluids ASSESSMENT/PLAN: 1. Fluid overload 2/2 nephrotic syndrome Diffuse membranous glomerulonephritis Being treated with steroid/ Cytoxan per Obs to [facility] -Pain Control (pain mgmt, no opiods) Tylenol 1000mg TID, Lyrica 75mg BID -IV lasix 40mg BID for 2 doses -Resume home torsemide 20mg BID after vs furosemide 40mg -Continue flomax 0.4mg qhs -Continue PPX bactrim 800-160 MWF -Continue Metalozone 2.5mg daily per nephro / -Cyclophosphamide 150mg BID -Strict I/O -Daily Standing Weight -CBC/BMP daily -PT/OT SW/CM 2. Chronic pain syndrome 2/2 spondylosis and spine DJD Seen by neurosurgery and MRI done on prior admit, is a poor surgical candidate with high M/M unlesshe reduces his weight. -Baclofen 10mg TID prn -Lidocaine patch right flank/lumbar back -continue home lyrica as above -Discuss ibuprofren scheduled with nephro CAD - ASA 81mg daily - Atorvastatin 80mg qhs GERD - Pantoprazole 40mg daily Chronic constipation/abdominal cramping - Dicyclomine 10mg TID - Sennakot qhs Sleep Apnea (w/o confirmatory study) -Autopap QHS, nocturnal pulse oximetry FEN/GI/DVT: IVF: None Electrolytes: Monitor and replace per protocols Diet: Diabetic GI PPX: PPI DVT Prophylaxis: Lovenox CODE STATUS: Full FRANCISCO J SAAVEDRA MD 09/30/2020 10:13 AM * Garcia Medrano MD - 09/30/2020 8:12 AM EDT [facility] Progress Note Subjective/ 54 y.o. year old male who we are seeing in consultation for nephrotic syndrome and volume issues. Interval Hx: Good response to diuresis, UO not charted accurately noted Leg swelling improving Low K today Denies any sob naeon ROS (-) except above No changes noted in REPLACED BY [facility] Objective/ Vitals: 09/29/20 1517 09/29/20 2332 09/30/20 0640 09/30/20 0728 BP: (!) 126/54 131/68 121/71 Pulse: 80 65 102 Resp: 18 18 20 Temp: 96.4 F (35.8 C) 96.8 F (36 C) 97.7 F (36.5 C) TempSrc: Temporal Temporal Temporal SpO2: 95% 98% 93% Weight: (!) 377 lb (171 kg) Height: 24HR INTAKE/OUTPUT: Intake/Output Summary (Last 24 hours) at 09/30/2020 0812 Last data filed at 09/29/2020 2202 Gross per 24 hour Intake 240 ml Output 2300 ml Net -2060 ml General: NAD, Comfortable appearing, cooperative to history and physical exam. + MO is noted Head: AT NC Eyes: No icterus, no pallor Neck: Supple, no jvd Chest: ant chest B/L clear, no crackles, no accessory muscles usage. CV: RRR, no murmurs or rubs Abdomen: Obese, soft, ND, BS +, diffuse tend on palpation Extremities: Bilateral LE edema 1+ , no tremor Neurological: Moving all four extremities Psychiatric: Normal insight and judgement, good recall, cooperative : no conte is noted in place Skin: No rashes on legs or arms, no bullae. Current Facility-Administered Medications Medication Dose Route Frequency Provider Last Rate Last Admin potassium chloride (KLOR-CON M) extended release tablet 40 mEq 40 mEq Oral Once Maldonado Wolf MD acetaminophen (TYLENOL) tablet 1,000 mg 1,000 mg Oral Q8H Yovani Ansari MD 1,000 mg at 09/30/20 0504 pregabalin (LYRICA) capsule 75 mg 75 mg Oral BID Yovani Ansari MD 75 mg at 09/29/20 2105 sodium chloride flush 0.9 % injection 5-40 mL 5-40 mL Intravenous 2 times per day Yovani Ansari MD 10 mL at 09/29/20 1110 sodium chloride flush 0.9 % injection 5-40 mL 5-40 mL Intravenous PRN Yovani Ansari MD 0.9 % sodium chloride infusion 25 mL Intravenous PRN Yovani Ansari MD enoxaparin (LOVENOX) injection 40 mg 40 mg Subcutaneous Daily Yovani Ansari MD 40 mg at 09/29/20 1057 ondansetron (ZOFRAN-ODT) disintegrating tablet 4 mg 4 mg Oral Q8H PRN Yovani Ansari MD 4 mg at09/30/20 0619 Or ondansetron (ZOFRAN) injection 4 mg 4 mg Intravenous Q6H PRN Yovani Ansari MD polyethylene glycol (GLYCOLAX) packet 17 g 17 g Oral Daily PRN Yovani Ansari MD acetaminophen (TYLENOL) tablet 650 mg 650 mg Oral Q6H PRN Yovani Ansari MD Or acetaminophen (TYLENOL) suppository 650 mg 650 mg Rectal Q6H PRN Yovani Ansari MD furosemide (LASIX) injection 40 mg 40 mg Intravenous BID Yovani Ansari MD 40 mg at 09/29/20 184 tamsulosin (FLOMAX) capsule 0.4 mg 0.4 mg Oral Daily Yovani Ansari MD 0.4 mg at 09/29/20 105 cyclophosphamide (CYTOXAN) 50 MG capsule CAPS 150 mg 150 mg Oral BID Yovani Ansari MD 150 mg at 09/29/202105 baclofen (LIORESAL) tablet 10 mg 10 mg Oral TID PRN Yovani Ansari MD 10 mg at 09/30/20 050 aspirin chewable tablet 81 mg 81 mg Oral Daily Yovani Ansari MD 81 mg at 09/29/20 105 atorvastatin (LIPITOR) tablet 80 mg 80 mg Oral Nightly Yovani Ansari MD 80 mg at 09/29/202105 polyethylene glycol (GLYCOLAX) packet 17 g 17 g Oral Daily Yovani Ansari MD sennosides-docusate sodium (SENOKOT-S) 8.6-50 MG tablet 2 tablet 2 tablet Oral Daily Yovani Ansari MD lidocaine 4 % external patch 1 patch 1 patch Transdermal Daily Yovani Ansari MD 1 patch at 09/29/20 110 metOLazone (ZAROXOLYN) tablet 2.5 mg 2.5 mg Oral Daily Garcia Medrano MD melatonin tablet 3 mg 3 mg Oral Nightly PRN Kirstin Sánchez MD 3 mg at 09/29/202104 ipratropium-albuterol (DUONEB) nebulizer solution 1 ampule 1 ampule Inhalation Q4H NE Kirstin Sánchez MD sodium chloride Data/ Recent Labs 09/29/203 09/30/20 0238 WBC 5.5 4.0 HGB 12.8* 11.9* HCT 36.6* 34.5* MCV 85.7 86.0 PLT 181 168 Recent Labs 09/29/20 0313 09/30/20 0238 NA 136 138 K 3.7 3.2* CL 104 103 CO2 27 32* GLUCOSE 214* 154* MG 2.1 2.0 BUN 16 15 CREATININE 1.22 1.30* Assessment/ 1. Nephrotic syndrome 2. Membranous Nephropathy, bx proven 3. Immunosuppression 4. Leg edema 5. Back pain chronic 6. abd pain, ? etiology 7. Morbid obesity BMI 49.08 Plan: - creatinine close to baseline, nonoliguric, BP stable - volume status appears hypervol, improving - UA showed hyaline/granular casts, WBC and 0-2 RBC - UpUc noted last was 3.96--> 1.24 this admission - continue the iv lasix 40 mg bid for another day, consider transition to po henok am Continue metolazone 2.5 mg qd - continue cytoxan po 150 mg bid - discontinued the prednisone as should be taking the cyclophosphamide now, last seen Dr. Bauman in outpt clinic on 09/17 noted - continue the Bactrim home dose - avoid nephrotoxins and IV contrast - permissive blood pressure - encourage oral intake - replace K prn - no need for IV fluids at this time, continue on FR 1500 cc/day, 2 gm Na/day low-salt diet - daily weight - strict I&O - other problems per primary service - will follow/call with questions [facility] * Yovani Ansari MD - 09/30/2020 7:43 AM EDT Images from the original note were not included. Medical Teaching Service Progress Note Patient: Sophie Hicks : 1965 Acct: [id number] PCP: Naima Rodriguez MD Admitting Physician: Francisco J Saavedra MD Admission Date: 09/29/2020 Admitting Diagnosis: Fluid overload [E87.70] Unit/Bed: 266/2662 Hospital Day: 1 Code Status: Full Code Subjective: Overnight events: no acute events Patient feeling well today, pain adequately controlled with prescription of no- opiods. Discussed his lyrica regimen and neuropathic leg pain. 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 Objective: Vitals: 09/29/20 1517 09/29/20 2332 09/30/20 0640 09/30/20 0728 BP: (!) 126/54 131/68 121/71 Pulse: 80 65 102 Resp: 18 18 20 Temp: 96.4 F (35.8 C) 96.8 F (36 C) 97.7 F (36.5 C) TempSrc: Temporal Temporal Temporal SpO2: 95% 98% 93% Weight: (!) 377 lb (171 kg) Height: Intake/Output Summary (Last 24 hours) at 09/30/2020 0743 Last data filed at 09/29/2020 2202 Gross per 24 hour Intake 240 ml Output 2300 ml Net -2060 ml Physical Exam Physical Exam Constitutional: General: Distressed: No longer in acute distress Appearance: He is obese. He is not ill-appearing. HENT: Head: Atraumatic. Mouth/Throat: Mouth: Mucous membranes are moist. Pharynx: Oropharynx is clear. Eyes: Extraocular Movements: Extraocular movements intact. Conjunctiva/sclera: Conjunctivae normal. Pupils: Pupils are equal, round, and reactive to light. Cardiovascular: Rate and Rhythm: Normal rate and regular rhythm. Pulses: Normal pulses. Heart sounds: Normal heart sounds. Comments Pulmonary: Effort: Pulmonary effort is normal. Breath sounds: Normal breath sounds. Abdominal: General: Bowel sounds are normal. There is improvement to abdominal distension Tenderness: There is right CVA tenderness persists mildly, (Cutaneous hypersensitivity still manifests). There is no left CVA tenderness. Comments: no visible viral rash or outward injury presenation, cannot rule out shingles Musculoskeletal: Cervical back: Normal range of motion and neck supple. Neurological: Mental Status: He is alert. Conte: No Drains: No Central Line/Port: No Diet: ADULT DIET; Regular; 4 carb choices (60 gm/meal); 1500 ml Medications: potassium chloride 40 mEq Oral Once acetaminophen 1,000 mg Oral Q8H pregabalin 75 mg Oral BID sodium chloride flush 5-40 mL Intravenous 2 times per day enoxaparin 40 mg Subcutaneous Daily furosemide 40 mg Intravenous BID tamsulosin 0.4 mg Oral Daily cyclophosphamide 150 mg Oral BID aspirin 81 mg Oral Daily atorvastatin 80 mg Oral Nightly polyethylene glycol 17 g Oral Daily sennosides-docusate sodium 2 tablet Oral Daily lidocaine 1 patch Transdermal Daily metOLazone 2.5 mg Oral Daily ipratropium-albuterol 1 ampule Inhalation Q4H WA Continuous Infusions: sodium chloride PRN Meds:sodium chloride flush, sodium chloride, ondansetron OR ondansetron, polyethylene glycol, acetaminophen OR acetaminophen, baclofen, melatonin Labs: CBC: Recent Labs 09/29/2031209/30/20 0238 WBC 5.5 4.0 RBC 4.28* 4.01* HGB 12.8* 11.9* HCT 36.6* 34.5* MCV 85.7 86.0 RDW 14.5 14.3 PLT 181 168 BMP: Recent Labs 09/29/2031209/30/208 NA 136 138 K 3.7 3.2* CL 104 103 CO2 27 32* BUN 16 15 CREATININE 1.22 1.30* GLUCOSE 214* 154* CALCIUM 8.7 8.4 ANIONGAP 6 2* LIVER PROFILE: Recent Labs 09/29/203 09/30/20 0238 AST 48* 46 ALT 30 31 BILITOT 0.8 0.4 ALKPHOS 58 53 LABALBU 3.5 3.0* PROT 6.6 5.9* PT/INR:No results for input(s): PROTIME, INR in the last 72 hours. CARDIAC ENZYMES: Recent Labs 09/29/20312 TROPONINI <0.012 Procalcitonin: Lab Results Component Value Date PROCAL 0.10 04/29/2020 Glucose: No results for input(s): POCGLU in the last 72 hours. ASSESSMENT/PLAN: 1. Fluid overload 2/2 nephrotic syndrome Diffuse membranous glomerulonephritis Being treated with steroid/ Cytoxan per Obs to [facility] -Pain Control (pain mgmt, no opiods) Tylenol 1000mg TID, Lyrica 75mg BID -Nephro consulted -IV lasix 40mg BID- will discharge with furosemide 40mg to replace torsemide -patient counseled on proper diet and fluid restriction with his Nephrotic syndrome -Continue flomax 0.4mg qhs -Continue PPX bactrim 800-160 MWF -Holding home Metalozone 2.5mg daily -Cyclophosphamide 150mg BID -Strict I/O -Daily Standing Weight -CBC/BMP daily -PT/OT SW/CM 2. Chronic pain syndrome 2/2 spondylosis and spine DJD Seen by neurosurgery and MRI done on prior admit, is a poor surgical candidate with high M/M unlesshe reduces his weight. -Baclofen 10mg TID prn -Lidocaine patch right flank/lumbar back -continue home lyrica as above CAD - ASA 81mg daily - Atorvastatin 80mg qhs GERD - Pantoprazole 40mg daily Chronic constipation/abdominal cramping - Dicyclomine 10mg TID - Sennakot qhs Sleep Apnea (w/o confirmatory study) -Autopap QHS, nocturnal pulse oximetry FEN/GI/DVT: IVF: None Electrolytes: Monitor and replace per protocols Diet: Diabetic GI PPX: PPI DVT Prophylaxis: Lovenox CODE STATUS: Full DISPOSITION: Anticipate patient discharge in next 48hrs pending any change in specialists recs vs clinical course * Yovani Ansari MD - 09/29/2020 6:46 AM EDT Images from the original note were not included. Medical Teaching Service History & Physical Patient: Sophie Hicks : 1965 Acct: [id number] PCP: Naima Rodriguez MD Admitting Physician: Francisco J Saavedra MD Admission Date: 09/29/2020 Chief Complaint Patient presents with Abdominal Pain History of Present Illness: 54 y.o. male Sophie Hicks is a 54 y.o. male presenting for increased abdominal and right flank pain since Thursday with Nausea/Vomiting. He has neuropathic pain extending into his bilateral legs 2/2 spondylosis and DJD of the spine. He has complaint of decreased urinary output with trickle of flow,feels like something is blocking it reports increased abdominal distension, and swelling of bilate ral feet. Right flank and CVA pain is focal 8/10 even s/p morphine, with sensitivity to touch.then radiates to his back and across abdomen, denies significant tenderness to left flank or to pressure on abdomen or feet. Did discuss with patient that when he has pain crisis that he should contact hispain management Prior to presenting to ED, as it could compromise his treatment plan if we had Rx outpatient opioids. Past Medical History: Diagnosis Date Benign essential HTN 01/29/2015 CAD (coronary artery disease) mild - dx on cath - neg stress Chronic kidney disease COVID-19 05/03 CS (cervical spondylosis) 12/25/2004 CERVICAL SPINE DJD History of colonic polyps 06/21/2013 repeat 2019 Insomnia 08/15/2014 Past Surgical History: Procedure Laterality Date APPENDECTOMY COLONOSCOPY ENDOSCOPY, COLON, DIAGNOSTIC NECK SURGERY Posterior cervical fusion ROTATOR CUFF REPAIR Bilateral Social History Socioeconomic History Marital status: Spouse name: Libia Number of children: Not on file Years of education: Not on file Highest education level: Not on file Occupational History Not on file Tobacco Use Smoking status: Never Smoker Smokeless tobacco: Never Used Vaping Use Vaping Use: Never used Substance and Sexual Activity Alcohol use: No Drug use: No Sexual activity: Not on file Other Topics Concern Not on file Social History Narrative Not on file Social Determinants of Health Financial Resource Strain: Difficulty of Paying Living Expenses: Food Insecurity: Worried About Running Out of Food in the Last Year: Ran Out of Food in the Last Year: Transportation Needs: Lack of Transportation (Medical): Lack of Transportation (Non-Medical): Physical Activity: Days of Exercise per Week: Minutes of Exercise per Session: Stress: Feeling of Stress : Social Connections: Frequency of Communication with Friends and Family: Frequency of Social Gatherings with Friends and Family: Attends Confucianist Services: Active Member of Clubs or Organizations: Attends Club or Organization Meetings: Marital Status: Intimate Partner Violence: Fear of Current or Ex-Partner: Emotionally Abused: Physically Abused: Sexually Abused: Family History Problem Relation Age of Onset Lung Cancer Mother smoker Osteoarthritis Mother Coronary Art Dis Grandmother No current facility-administered medications on file prior to encounter. Current Outpatient Medications on File Prior to Encounter Medication Sig Dispense Refill lidocaine 4 % external patch Place 1 patch onto the skin daily 3 patch 0 cyclophosphamide (CYTOXAN) 50 MG CAPS capsule Take 3 capsules by mouth 2 times daily 180 capsule 0 torsemide (DEMADEX) 20 MG tablet Take 1 tablet by mouth 2 times daily 30 tablet 3 gabapentin (NEURONTIN) 300 MG capsule Take 2 capsules by mouth 3 times daily for 30 days. 180 capsule 0 albuterol sulfate HFA (VENTOLIN HFA) 108 (90 Base) MCG/ACT inhaler Take 2 puffs by mouth 4 times daily as needed (Patient not taking: Reported on 09/18/2020) tamsulosin (FLOMAX) 0.4 MG capsule Take 0.4 mg by mouth daily baclofen (LIORESAL) 10 MG tablet Take 5 mg by mouth 3 times daily as needed (back pain) atorvastatin (LIPITOR) 80 MG tablet Take 1 tablet by mouth nightly 30 tablet 3 sulfamethoxazole-trimethoprim (BACTRIM DS;SEPTRA DS) 800-160 MG per tablet Take 1 tablet by mouth three times a week (Patient taking differently: Take 1 tablet by mouth three times a week Thursday) 30 tablet 0 aspirin 81 MG chewable tablet Take 81 mg by mouth daily dicyclomine (BENTYL) 10 MG capsule Take 1 capsule by mouth 3 times daily (before meals) (Patient taking differently: Take 10 mg by mouth 3 times daily as needed ) 120 capsule 3 pantoprazole (PROTONIX) 40 MG tablet Take 1 tablet by mouth 2 times daily (with meals) 30 tablet 1 albuterol sulfate HFA (VENTOLIN HFA) 108 (90 Base) MCG/ACT inhaler Inhale 2 puffs into the lungs 4 times daily as needed for Wheezing Use every Four hours for the next 2 days then May switch to everyfour hours as needed. 2 Inhaler 0 Allergies: Iv contrast [iodides] and Nsaids Review of Systems Constitutional: Positive for activity change. Negative for chills. Gastrointestinal: Positive for abdominal pain, nausea and vomiting. Right flank pain Genitourinary: Positive for difficulty urinating and flank pain. Negative for discharge, penile swelling, scrotal swelling and testicular pain. Skin: Cutaneous tenderness of right flank Vitals: Vitals: 09/29/20 0502 09/29/20 0532 09/29/20 0602 09/29/20 0632 BP: 110/72 96/81 105/64 105/66 Pulse: 89 84 83 87 Resp: Temp: TempSrc: SpO2: 93% 96% 96% 96% Weight: Height: Physical Exam Constitutional: General: Distressed: Moderate distress/discomfort. Appearance: He is obese. He is not ill-appearing. HENT: Head: Atraumatic. Mouth/Throat: Mouth: Mucous membranes are moist. Pharynx: Oropharynx is clear. Eyes: Extraocular Movements: Extraocular movements intact. Conjunctiva/sclera: Conjunctivae normal. Pupils: Pupils are equal, round, and reactive to light. Cardiovascular: Rate and Rhythm: Normal rate and regular rhythm. Pulses: Normal pulses. Heart sounds: Normal heart sounds. Comments: Tachy in between pain control doses Pulmonary: Effort: Pulmonary effort is normal. Breath sounds: Normal breath sounds. Abdominal: General: Bowel sounds are normal. There is distension (significant rounded/distended belly w/o appreciable mass or rebound, some fluid w/o wave). Tenderness: There is right CVA tenderness (focal tenderness to palpation, rolls to other side of bed, cutaneous hypersensitivity,). There is no left CVA tenderness. Comments: Some diffuse tenderness to his abdomen, focal tenderness over right flank and CVA Musculoskeletal: Cervical back: Normal range of motion and neck supple. Neurological: Mental Status: He is alert. Labs: Results for orders placed or performed during the hospital encounter of 09/29/20 Basic Metabolic Panel Result Value Ref Range Sodium 136 135 - 145 mmol/L Potassium 3.7 3.5 - 5.1 mmol/L Chloride 104 98 - 107 mmol/L CO2 27 22 - 30 mmol/L Anion Gap 6 3 - 13 mmol/L Glucose 214 (H) 70 - 100 mg/dL BUN 16 7 - 20 mg/dL CREATININE 1.22 0.52 - 1.25 mg/dL eGFR 75.8 >60 mL/min EGFR IF NonAfrican [place]i 65.4 >60 mL/min Calcium 8.7 8.4 - 10.4 mg/dL Hepatic Function Panel Result Value Ref Range Albumin,Serum 3.5 3.5 - 5.0 g/dL Total Protein 6.6 6.3 - 8.2 g/dL Total Bilirubin 0.8 0.2 - 1.3 mg/dL Bilirubin, Direct 0.0 0.0 - 0.3 mg/dL Alkaline Phosphatase 58 38 - 126 U/L ALT 30 0 - 49 U/L AST 48 (H) 15 - 46 U/L Lactic Acid, Plasma Result Value Ref Range Lactic Acid 1.8 0.7 - 2.0 mmol/L Lipase Result Value Ref Range Lipase 102 23 - 300 U/L Hemogram (CBC) w/Auto Diff Result Value Ref Range WBC 5.5 3.6 - 10.7 10*3/uL RBC 4.28 (L) 4.40 - 5.90 10*6/uL Hemoglobin 12.8 (L) 13.0 - 18.0 g/dL Hematocrit 36.6 (L) 40.0 - 52.0 % MCV 85.7 80.0 - 98.0 fL MCH 29.9 26.0 - 34.0 pg MCHC 34.9 32.0 - 36.0 % RDW 14.5 11.5 - 14.5 % Platelets 181 140 - 440 10*3/uL MPV 6.4 (L) 7.4 - 10.4 fL Granulocytes % 60.6 40.0 - 80.0 % Lymphocyte % 22.7 20.0 - 40.0 % Monocytes 12.8 (H) 2.0 - 10.0 % Eosinophils 2.7 1.0 - 6.0 % Basophils 1.2 0.0 - 2.0 % Absolute Neut # 3.3 1.8 - 7.0 10*3/uL Absolute Lymph # 1.2 1.0 - 4.3 10*3/uL Absolute Perry # 0.7 0.0 - 0.8 10*3/uL Absolute Eos # 0.1 0.0 - 0.5 10*3/uL Absolute Baso # 0.1 0.0 - 0.2 10*3/uL Magnesium Result Value Ref Range Magnesium 2.1 1.6 - 2.3 mg/dL Urinalysis Result Value Ref Range Glucose, Ur 50 Normal (<70) mg/dL Total Protein, Urine 600 (A) Negative mg/dL Bilirubin Urine Negative Negative mg/dL Urobilinogen, Urine 2 (A) Normal (0-1) mg/dL pH, Urine 6.0 5.0 - 8.0 NA Specific Kirwin, Urine 1.028 1.005 - 1.030 NA Occult Blood,Urine 0.1 (A) Negative mg/dL Ketones, Urine Negative Negative mg/dL Nitrite, Urine Negative Negative NA LEUKOCYTES, UA Negative Negative Caprice/uL Appearance Clear Clear NA Color, Urine Yellow Lt. Yellow NA RBC, UA 0-2 0 - 2 /[HPF] WBC, UA 6-10 (A) 0 - 5 /[HPF] Squam Epithel, UA 0-2 3 - 5 /[HPF] Bacteria, UA Few (A) Negative /[HPF] Mucous Threads Few Negative /[LPF] Hyaline Casts, UA 0-2 (A) Negative /[LPF] Granular Casts, UA 0-2 (A) Negative /[LPF] Add On Lab Test Result Value Ref Range Add On Accepted NA Add On Lab Test Result Value Ref Range Add On Accepted NA Troponin Result Value Ref Range Troponin I <0.012 0.000 - 0.034 ng/mL Radiology review: MRI THORACIC SPINE WO CONTRAST Result Date: 09/12/2020 Patient Name: SOPHIE HICKS [facility] ACCESSION EXAM DATE/TIME PROCEDURE ORDERING PROVIDER [id number] 09/12/2020 16:05 EDT MRI Spine Thoracic w/o [id number] KIRSTIN SIEGEL Contrast CPT code 65928 Reason For Exam (MRI Spine Thoracic w/o Contrast) back spasms, history of cervicalgia, having LE weakness and inability to ambulate Report Indication: Backspasms. MRI of the thoracic spine without contrast. T1 and T2- weighted sagittal and axial, and inversion recovery sagittal images of the thoracic spine performed. Thoracic vertebral body height is maintained. No anterior or posterior listhesis. No concerning areas of marrow edema. Posterior disc protrusion at T7-T8. Flattening of the ventral aspect of the thecal sac. Protruding disc abuts the theventral aspect of the thoracic cord in the midline and to the right of midline. No definite cord flattening. No other disc protrusions in the thoracic spine. Degenerative disc and endplate changes atC6- C7. Posterior disc protrusion at C6-C7 causes flattening of the ventral aspect of the thecal sacwithout definite cervical cord impingement. Images degraded by patient body habitus. IMPRESSION: Degenerative disc protrusion at T7-T8. Protruding disc abuts the ventral aspect of the thoracic cord in the midline and to the right of midline. No definite thoracic cord flattening. No signal abnormalities of the thoracic cord. Report Dictated on --- Final --- Dictating Physician: MD FAULKNER LAURA Signed Date and Time: 09/12/2020 4:42 pm Signed by: MD FAULKNER LAURA Transcribed Date and Time: 09/12/2020 4:43 MRI LUMBAR SPINE WO CONTRAST Result Date: 09/12/2020 [id number] ACCESSION EXAM DATE/TIME PROCEDURE ORDERING PROVIDER [id number] 09/12/2020 15:45 EDT MRI Spine Lumbar w/o [id number] -GONZALODESIYAIR Contrast CPT code 85026 Reason For Exam (MRI Spine Lumbar w/o Contrast) back spasms, history of cervicalgia, having LE weakness and inability to ambulate Report Indication: Shortness of breath. Back spasms. MRI lumbar spine without contrast. T1 and T2- weighted sagittal and axial, and inversion recovery sagittal images of the lumbar spine performed. Sagittal images show normal height of the lumbar vertebral bodies without anterior or posterior listhesis. Disc spaces are maintained. No concerning areas of marrow edema. Conus medullaris terminates at the T12 level. T12-L1: Discspace is maintained. No canal or foraminal stenosis. L1-L2: Disc space is maintained. No canal or foraminal stenosis. L2-L3: Disc space is maintained. No canal or foraminal stenosis. L3-L4: Mild diffuse disc bulge. Mild facet hypertrophy. Small amount of fluid in the facet joints. Mild bilateral foraminal stenosis. L4-L5: Diffuse disc bulge. Left paracentral and foraminal disc protrusion. Protruding disc contacts the left L5 nerve root. Mild posterior displacement of the left L5 nerve root. Protruding disc lies adjacent to the emerging left L4 nerve root. Facet hypertrophy. Mild endplate hyper trophy. Fluid in the facet joints. Moderate canal stenosis. Moderate left foraminal stenosis. L5-S1: Disc space is maintained. No canal or foraminal stenosis. IMPRESSION: Degenerative disc, endplate and facet changes at L4-L5. Broad-based left paracentral and foraminal disc protrusion at L4-L5. Mild posterior displacement of the left L5 nerve root in the left lateral recess. Protruding disc lies adjacent to the emerging left L4 nerve root. Magnetic Resonance Imaging Report Report Dictated on --- Final --- Dictating Physician: MD FAULKNER LAURA Signed Date and Time:09/12/2020 4:33 pm Signed by: MD FAULKNER LAURA Transcribed Date and Time: 09/12/2020 4:34 CT Abdomen Pelvis Wo Contrast Result Date: 09/29/2020 Patient Name: SOPHIE HICKS [facility]#: [id number] Computed Tomography ACCESSION EXAM DATE/TIME PROCEDURE ORDERING PROVIDER [id number] 09/29/2020 03:[address] Abdomen/Pelvis (No 480040 -KIBE, JULIANNE PO, No IV) CPT code 49882 Reason For Exam (CT Abdomen/Pelvis (No PO, No IV)) Patient with RUQ pain and rt CVA tenderness allergic to IV contrast Report CT ABDOMEN AND PELVIS WITHOUT CONTRAST CLINICAL INDICATION: Right upper quadrant pain Serial axial CT images of the abdomen and pelvis were acquired without intravenous contrast. Oral contrast was not given for this study. COMPARISON: 08/09/2020 FINDINGS: There is no hydronephrosis, hydroureter, or perinephric stranding bilaterally. No renal or ureteral stones are identified. The urinary bladder is empty, limiting evaluation. The prostate does not appear enlarged. The liver, gallbladder, spleen, pancreas, and adrenal glands are grossly unremarkable in appearance on this noncontrast examination. No retroperitoneal or pelvic lympha denopathy is seen. The abdominal aorta is normal in caliber. The large and small bowel is unremarkable in appearance, without evidence of thickening or dilatation. The appendix appears normal. No free fluid is seen within the abdomen or pelvis. There is no free air under the diaphragm. The visualized portion of the lung bases are clear. No lytic or blastic lesions are seen on the bone windows. IMPRESSION: No renal or ureteral stones are seen. No hydronephrosis, hydroureter, or perinephric stranding is seen bilaterally. No acute findings are seen on this examination to explain the patient's pain. Computed Tomography Report Report Dictated on --- Final --- Dictating Physician: MD SEGURA JONATHAN R Signed Date and Time: 09/29/2020 3:48 am Signed by: MD SEGURA JONATHAN R Transcribed Date and Time: 09/29/2020 3:49 EKG: n/a ED medications: Medications acetaminophen (TYLENOL) tablet 1,000 mg (1,000 mg Oral Given 09/29/20627) pregabalin (LYRICA) capsule 75 mg (has no administration in time range) morphine injection 4 mg (4 mg Intravenous Given 09/29/20318) ondansetron (ZOFRAN) injection 4 mg (4 mg Intravenous Given 09/29/20318) 0.9 % sodium chloride bolus (0 mLs Intravenous Stopped 09/29/20436) morphine injection 4 mg (4 mg Intravenous Given 09/29/20435) furosemide (LASIX) injection 40 mg (40 mg Intravenous Given 09/29/20627) ED COURSE: IV morphine 4mg, 2L fluids ASSESSMENT/PLAN: 1. Fluid overload 2/2 nephrotic syndrome Diffuse membranous glomerulonephritis Being treated with steroid/ Cytoxan per Obs to [facility] -Pain Control (pain mgmt, no opiods) Tylenol 1000mg TID, Lyrica 75mg BID -IV lasix 40mg BID for 2 doses -Resume home torsemide 20mg BID after vs furosemide 40mg -Continue flomax 0.4mg qhs -Continue PPX bactrim 800-160 MWF -Continue Metalozone 2.5mg daily per nephro 09/17 -Cyclophosphamide 150mg BID -Strict I/O -Daily Standing Weight -CBC/BMP daily -PT/OT SW/CM 2. Chronic pain syndrome 2/2 spondylosis and spine DJD Seen by neurosurgery and MRI done on prior admit, is a poor surgical candidate with high M/M unlesshe reduces his weight. -Baclofen 10mg TID prn -Lidocaine patch right flank/lumbar back -continue home lyrica as above -Discuss ibuprofren scheduled with nephro CAD - ASA 81mg daily - Atorvastatin 80mg qhs GERD - Pantoprazole 40mg daily Chronic constipation/abdominal cramping - Dicyclomine 10mg TID - Sennakot qhs Sleep Apnea (w/o confirmatory study) -Autopap QHS, nocturnal pulse oximetry FEN/GI/DVT: IVF: None Electrolytes: Monitor and replace per protocols Diet: Diabetic GI PPX: PPI DVT Prophylaxis: Lovenox CODE STATUS: Full Case discussed with: Dr. Keri Ansari MD Pager #: [phone] 09/29/2020 6:46 AM documented in this [employer] Work Phone: [phone] 598-839006-21-2021 Hospital Discharge instructions* Instructions* Yovani Ansari MD - 10/01/2020 GENERAL SIGNS AND SYMPTOMS GREEN ZONE: All Clear- Your Symptoms Are Under Control No recurrence of symptoms that led to hospitalization Able to do usual activities No fever No chest pain No shortness of breath This Means You Should: Continue taking your medications as prescribed Continue activity as tolerated Keep all doctor appointments YELLOW ZONE: Caution as Your Health may be Worsening Recurrence of symptoms that led to hospitalization Fever of 100 degrees or higher Increased fatigue or restlessness Intolerant side-effects of medications Uneasy feeling or that something is wrong This Means You Should: Call your doctor for further instructions Naima Rodriguez MD [phone] RED ZONE: Medical Alert Severe or unrelieved shortness of breath at rest Unrelieved chest pain Confusion or you can't think clearly This Means You Should Call 911 Immediately documented in this [employer] Work Phone: [phone] Hospital Discharge instructions* Discharge Instr - Lab* Lucy Barbosa RN - 09/13/2020 10:12 AM EDT Your physician has ordered skilled home care services for you. Your home care will be provided by: [facility] [phone] * Additional Instructions* Kirstin Sánchez MD - 09/13/2020 Images from the original note were not included. GENERAL SIGNS AND SYMPTOMS GREEN ZONE: All Clear- Your Symptoms Are Under Control No recurrence of symptoms that led to hospitalization Able to do usual activities No fever No chest pain No shortness of breath This Means You Should: Continue taking your medications as prescribed Continue activity as tolerated Keep all doctor appointments YELLOW ZONE: Caution as Your Health may be Worsening Recurrence of symptoms that led to hospitalization Fever of 100 degrees or higher Increased fatigue or restlessness Intolerant side-effects of medications Uneasy feeling or that something is wrong This Means You Should: Call your doctor for further instructions Naima Rodriguez MD [phone] [place], [place] [id number] RED ZONE: Medical Alert Severe or unrelieved shortness of breath at rest Unrelieved chest pain Confusion or you can't think clearly This Means You Should Call 911 Immediately Back Pain: Care Instructions Your Care Instructions Back pain has many possible causes. It is often related to problems with muscles and ligaments of the back. It may also be related to problems with the nerves, discs, or bones of the back. Moving, lifting, standing, sitting, or sleeping in an awkward way can strain the back. Sometimes you don't notice the injury until later. Arthritis is another common cause of back pain. Although it may hurt a lot, back pain usually improves on its own within several weeks. Most peoplerecover in 12 weeks or less. Using good home treatment and being careful not to stress your back can help you feel better sooner. Follow-up care is a plaza part of your treatment and safety. Be sure to make and go to all appointments, and call your doctor if you are having problems. It's also a good idea to know your test resultsand keep a list of the medicines you take. How can you care for yourself at home? Sit or lie in positions that are most comfortable and reduce your pain. Try one of these positions when you lie down: ? Lie on your back with your knees bent and supported by large pillows. ? Lie on the floor with your legs on the seat of a sofa or chair. ? Lie on your side with your knees and hips bent and a pillow between your legs. ? Lie on your stomach if it does not make pain worse. Do not sit up in bed, and avoid soft couches and twisted positions. Bed rest can help relieve pain at first, but it delays healing. Avoid bed rest after the first day of back pain. Change positions every 30 minutes. If you must sit for long periods of time, take breaks from sitting. Get up and walk around, or lie in a comfortable position. Try using a heating pad on a low or medium setting for 15 to 20 minutes every 2 or 3 hours. Try a warm shower in place of one session with the heating pad. You can also try an ice pack for 10 to 15 minutes every 2 to 3 hours. Put a thin cloth between the ice pack and your skin. Take pain medicines exactly as directed. ? If the doctor gave you a prescription medicine for pain, take it as prescribed. ? If you are not taking a prescription pain medicine, ask your doctor if you can take an [id number]-get-[id number] medicine. Take short walks several times a day. You can start with 5 to 10 minutes, 3 or 4 times a day, and work up to longer walks. Walk on level surfaces and avoid hills and stairs until your back is better. Return to work and other activities as soon as you can. Continued rest without activity is usually not good for your back. To prevent future back pain, do exercises to stretch and strengthen your back and stomach. Learn how to use good posture, safe lifting techniques, and proper body mechanics. When should you call for help? Call your doctor now or seek immediate medical care if: You have new or worsening numbness in your legs. You have new or worsening weakness in your legs. (This could make it hard to stand up.) You lose control of your bladder or bowels. Watch closely for changes in your health, and be sure to contact your doctor if: You have a fever, lose weight, or don't feel well. You do not get better as expected. Where can you learn more? Go to [email or web address] and sign in to your [employer] account. Enter I594 in the Search Health Information box to learn more about Back Pain: Care Instructions. If you do not have an account, please click on the Sign Up Now link. Current as of: February 27, 2020 Content Version: 12.8 [employer]. Care instructions adapted under license by [employer]. If you have questions about a medical condition or this instruction, always ask your healthcare professional. [employer] disclaims any warranty or liability for your use of this information. Back Spasm: Care Instructions Your Care Instructions A back spasm is sudden tightness and pain in your back muscles. It may happen from overuse or an injury. Things like sleeping in an awkward way, bending, lifting, standing, or sitting can sometimes cause a spasm. But the cause isn't always clear. Home treatment includes using heat or ice, taking [id number] (OTC) pain medicines, and avoiding activities that may cause back pain. For a back spasm that doesn't get better with home care, your doctor may prescribe medicine. Treatments such as massage or manipulation may also help ease a back spasm. Your doctor may also suggest exercise or physical therapy to help improve strength and flexibility in your back muscles. In most cases, getting back to your normal activities is good for your back. Just make sure to avoid doing things that make your pain worse. Follow-up care is a plaza part of your treatment and safety. Be sure to make and go to all appointments, and call your doctor if you are having problems. It's also a good idea to know your test resultsand keep a list of the medicines you take. How can you care for yourself at home? Heat, ice, and medicines To relieve pain, use heat or ice (whichever feels better) on the affected area. ? Put a warm water bottle, a heating pad set on low, or a warm cloth on your back. Put a thin clothbetween the heating pad and your skin. Do not go to sleep with a heating pad on your skin. ? Try ice or a cold pack on the area for 10 to 20 minutes at a time. Put a thin cloth between the ice and your skin. For most back pain you can take [id number] pain medicine. Nonsteroidal anti-inflammatory drugs (NSAIDs) such as ibuprofen or naproxen seem to work best. But if you can't take NSAIDs you can tryacetaminophen. Your doctor can prescribe stronger medicines if needed. Be safe with medicines. Readand follow all instructions on the label. Body positions and posture Sit or lie in positions that are most comfortable for you and that reduce pain. Try one of these positions when you lie down: ? Lie on your back with your knees bent and supported by large pillows. ? Lie on the floor with your legs on the seat of a sofa or chair. ? Lie on your side with your knees and hips bent and a pillow between your legs. ? Lie on your stomach if it does not make pain worse. Do not sit up in bed. Avoid soft couches and twisted positions. Avoid bed rest after the first day of back pain. Bed rest can help relieve pain at first, but it delays healing. Continued rest without activity is usually not good for your back. If you must sit for long periods of time, take breaks from sitting. Change positions every 30 minutes. Get up and walk around, or lie in a comfortable position. Activity Take short walks several times a day. You can start with 5 to 10 minutes, 3 or 4 times a day, and work up to longer walks. Walk on level surfaces and avoid hills and stairs until your back starts to feel better. After your back spasm starts to feel better, try to stretch your muscles every day, especially before and after exercise and at bedtime. Regular stretching can help relax your muscles. To prevent future back pain, do exercises to stretch and strengthen your back and stomach. Learn touse good posture, safe lifting techniques, and other ways to move to help you avoid back pain. When should you call for help? Call 911 anytime you think you may need emergency care. For example, call if: You are unable to move an arm or a leg at all. Call your doctor now or seek immediate medical care if: You have new or worse symptoms in your legs, belly, or buttocks. Symptoms may include: ? Numbness or tingling. ? Weakness. ? Pain. You lose bladder or bowel control. Watch closely for changes in your health, and be sure to contact your doctor if: You have a fever, lose weight, or don't feel well. You do not get better as expected. Where can you learn more? Go to [email or web address] and sign in to your [employer] account. Enter E232 in the Search Health Information box to learn more about Back Spasm: Care Instructions. If you do not have an account, please click on the Sign Up Now link. Current as of: February 27, 2020 Content Version: 12.8 [employer]. Care instructions adapted under license by [employer]. If you have questions about a medical condition or this instruction, always ask your healthcare professional. [employer] disclaims any warranty or liability for your use of this information. * Attachments The following attachments cannot be sent through Care Everywhere. * Back Pain (Honduran) [facility] Phone: [phone] 647-945406-03-2021 History of Present illness Narrative* Cydney Farrar - 09/13/2020 9:06 AM EDT Nutrition rescreen completed. Patient referred to the Dietitian. * Wiliam Fernandez MD - 09/13/2020 8:07 AM EDT Progress Note Date:09/13/2020 Room:[address] [place] [address] Patient Name:Sophie Hicks Date of :1965 Age:54 y.o. Subjective Subjective: Symptoms: Improved. (Notes walked in hallway yesterday). Diet: Adequate intake. Activity level: Returning to normal. Pain: He complains of pain that is mild. He reports pain is improving. Review of Systems Objective Vitals Last 24 Hours: TEMPERATURE: Temp Av.4 F (36.3 C) Min: 97.3 F (36.3 C) Max: 97.4 F (36.3 C) RESPIRATIONS RANGE: Resp Av.3 Min: 18 Max: 19 PULSE OXIMETRY RANGE: SpO2 Av.8 % Min: 93 % Max: 96 % PULSE RANGE: Pulse Av Min: 76 Max: 78 BLOOD PRESSURE RANGE: Systolic (24hrs), Av , Min:110 , Max:111 ; Diastolic (24hrs), Av, Min:68, Max:81 I/O (24Hr): Intake/Output Summary (Last 24 hours) at 09/13/2020 0807 Last data filed at 09/13/2020 0358 Gross per 24 hour Intake 490 ml Output 1600 ml Net -1110 ml Objective: Vital signs: (most recent): Blood pressure 110/81, pulse 76, temperature 97.3 F (36.3 C), temperature source Temporal, resp. rate 18, height 6' 1 (1.854 m), weight (!) 373 lb 9.6 oz (169.5 kg), SaQ884 %. Vital signs are normal. Output: Producing urine. HEENT: Normal HEENT exam. Lungs: Normal effort and normal respiratory rate. Breath sounds clear to auscultation. Heart: Normal rate. Regular rhythm. S1 normal. Abdomen: Abdomen is soft. There is no abdominal tenderness. Labs/Imaging/Diagnostics Labs: CBC: Recent Labs 09/11/20 1024 09/12/20 0152 09/13/20 0343 WBC 10.4 11.4* 11.8* RBC 4.65 4.62 4.53 HGB 14.1 13.5 13.6 HCT 39.8* 39.5* 39.1* MCV 85.7 85.4 86.4 RDW 14.3 14.5 14.4 PLT 222 226 228 CHEMISTRIES: Recent Labs 09/11/20 1024 09/12/20 0152 09/13/20 0343 NA 134* 130* 135 K 4.0 3.0* 3.6 CL 95* 94* 94* CO2 30 29 34* BUN 33* 33* 36* CREATININE 1.45* 1.49* 1.56* GLUCOSE 297* 171* 148* MG 1.7 1.7 -- PT/INR:No results for input(s): PROTIME, INR in the last 72 hours. APTT:No results for input(s): APTT in the last 72 hours. LIVER PROFILE: Recent Labs 09/11/20 1024 09/12/20 0152 AST 25 24 ALT 24 21 BILITOT 0.4 0.5 ALKPHOS 80 64 Imaging Last 24 Hours: XR LUMBAR SPINE (2-3 VIEWS) Result Date: 09/11/2020 Patient Name: SOPHIE HICKS Diagnostic Radiology ACCESSION EXAM DATE/TIME PROCEDURE ORDERING PROVIDER [id number] 09/11/2020 17:05 EDT CR Spine Lumbosacral 2 [id number] -POLCE, KAMAR or 3 Views CPT code 14926 Reason For Exam (CR Spine Lumbosacral 2 or 3 Views) low back pain Report HISTORY: Back pain AP and lateral views of the lumbar spine were obtained. A coned-down lateral image of the sacrum was also obtained. Comparisons available: None. FINDINGS: There are 5 nonrib bearing lumbar type vertebral bodies. Vertebral body height and alignment is maintained without evidence of acute fracture or subluxation. There is only mild degenerative changes noted. They are in the thoracic spine at T9, T10, and T11. Minor facet hypertrophy is noted in the lower lumbar spine. The bowel gas pattern is nonobstructed. There are few small bowel loops which are slightly distended with gas and have a stacked appearance. Recommend correlation for any abdominal/GI symptoms. IMPRESSION: No acute osseous abnormality. Minimal degenerative change. Report Dictated on --- Final --- Dictating Physician: MD RODRIGUEZ TOM A Signed Date and Time: 09/11/2020 5:36 pm Signed by: MD RODRIGUEZ TOM A Transcribed Date and Time: 09/11/2020 5:37 MRI THORACIC SPINE WO CONTRAST Result Date: 09/12/2020 Patient Name: SOPHIE HICKS [facility] ACCESSION EXAM DATE/TIME PROCEDURE ORDERING PROVIDER [id number] 09/12/2020 16:05 EDT MRI Spine Thoracic w/o [id number] -KIRSTIN SÁNCHEZ Contrast CPT code 33966 Reason For Exam (MRI Spine Thoracic w/o Contrast) back spasms, history of cervicalgia, having LE weakness and inability to ambulate Report Indication: Backspasms. MRI of the thoracic spine without contrast. T1 and T2- weighted sagittal and axial, and inversion recovery sagittal images of the thoracic spine performed. Thoracic vertebral body height is maintained. No anterior or posterior listhesis. No concerning areas of marrow edema. Posterior disc protrusion at T7-T8. Flattening of the ventral aspect of the thecal sac. Protruding disc abuts the theventral aspect of the thoracic cord in the midline and to the right of midline. No definite cord flattening. No other disc protrusions in the thoracic spine. Degenerative disc and endplate changes atC6- C7. Posterior disc protrusion at C6-C7 causes flattening of the ventral aspect of the thecal sacwithout definite cervical cord impingement. Images degraded by patient body habitus. IMPRESSION: Degenerative disc protrusion at T7-T8. Protruding disc abuts the ventral aspect of the thoracic cord in the midline and to the right of midline. No definite thoracic cord flattening. No signal abnormalities of the thoracic cord. Report Dictated on --- Final --- Dictating Physician: MD FAULKNER LAURA Signed Date and Time: 09/12/2020 4:42 pm Signed by: MD FAULKNER LAURA Transcribed Date and Time: 09/12/2020 4:43 MRI LUMBAR SPINE WO CONTRAST Result Date: 09/12/2020 Patient Name: SOPHIE HICKS [facility] ACCESSION EXAM DATE/TIME PROCEDURE ORDERING PROVIDER [id number] 09/12/2020 15:45 EDT MRI Spine Lumbar w/o [id number] KIRSTIN SIEGEL Contrast CPT code 06372 Reason For Exam (MRI Spine Lumbar w/o Contrast) back spasms, history of cervicalgia, having LE weakness and inability to ambulate Report Indication: Shortness of breath. Back spasms. MRI lumbar spine without contrast. T1 and T2- weighted sagittal and axial, and inversion recovery sagittal images of the lumbar spine performed. Sagittal images show normal height of the lumbar vertebral bodies without anterior or posterior listhesis. Disc spaces are maintained. No concerning areas of marrow edema. Conus medullaris terminates at the T12 level. T12-L1: Discspace is maintained. No canal or foraminal stenosis. L1-L2: Disc space is maintained. No canal or foraminal stenosis. L2-L3: Disc space is maintained. No canal or foraminal stenosis. L3-L4: Mild diffuse disc bulge. Mild facet hypertrophy. Small amount of fluid in the facet joints. Mild bilateral foraminal stenosis. L4-L5: Diffuse disc bulge. Left paracentral and foraminal disc protrusion. Protruding disc contacts the left L5 nerve root. Mild posterior displacement of the left L5 nerve root. Protruding disc lies adjacent to the emerging left L4 nerve root. Facet hypertrophy. Mild endplate hyper trophy. Fluid in the facet joints. Moderate canal stenosis. Moderate left foraminal stenosis. L5-S1: Disc space is maintained. No canal or foraminal stenosis. IMPRESSION: Degenerative disc, endplate and facet changes at L4-L5. Broad-based left paracentral and foraminal disc protrusion at L4-L5. Mild posterior displacement of the left L5 nerve root in the left lateral recess. Protruding disc lies adjacent to the emerging left L4 nerve root. Magnetic Resonance Imaging Report Report Dictated on --- Final --- Dictating Physician: MD FAULKNER LAURA Signed Date and Time:09/12/2020 4:33 pm Signed by: MD FAULKNER LAURA Transcribed Date and Time: 09/12/2020 4:34 XR CHEST PORTABLE Result Date: 09/11/2020 [id number] ACCESSION EXAM DATE/TIME PROCEDURE ORDERING PROVIDER [id number] 09/11/2020 10:33 EDT CR Chest Portable [id number] KAMAR BLOOM CPT code 55027 Reason For Exam (CR Chest Portable) shortness of breath Report EXAM TYPE: RADIOLOGIC EXAMINATION, CHEST, SINGLE VIEW FRONTAL (CXR SINGLE VIEW) EXAM DATE AND TIME: 09/11/2020 10:33 AM EDT INDICATION: Respiratory distress COMPARISON: 07/23/2020 TECHNIQUE: A single frontal view ofthe thorax was obtained and reviewed. Special views: None. IMPRESSION: 1. Lines/Tubes/Devices/Hardware: Monitoring leads. Please confirm position/function of devices/catheters clinically. 2. Lungs: No consolidation or pulmonary edema. 3. Pleura: No significant effusion. No significant pneumothorax.4. Heart and mediastinum: Limited due to technique. 5. Upper abdomen: No acute process seen. 6. Thorax:No acute bony process Report Dictated on --- Final --- Dictating Physician: MD DYE JOHN Signed Date and Time: 09/11/2020 11:03 am Signed by: MD DYE JOHN Transcribed Date and Time: 09/11/2020 11:04 XR Spine Thoracic 3 VW Result Date: 09/11/2020 Patient Name: SOPHIE HICKS Diagnostic Radiology ACCESSION EXAM DATE/TIME PROCEDURE ORDERING PROVIDER [id number] 09/11/2020 17:05 EDT CR Spine Thoracic 3 [id number] -POLCE, KAMAR Views CPT code 04263 Reason For Exam (CR Spine Thoracic 3 Views) mid back pain Report HISTORY: Back pain AP, lateral, and swimmers views of the thoracic spine were obtained. Comparisons available: None. FINDINGS: The thoracic vertebra demonstrate normal height and alignment, without evidence of acute fracture or subluxation. There is mild degenerative endplate spurring in the mid and lower thoracic spine. Posterior laminectomy and fusion changes are noted in the cervical spine. IMPRES ROSANNA: No acute fracture or subluxation seen. Mild degenerative endplate changes. Report Dictated onWorkstation: [id number] --- Final --- Dictating Physician: MD MARINA KERISTEN L Signed Date and Time: 09/11/2020 5:23 pm Signed by: MD MARINA KERISTEN L Transcribed Date and Time: 09/11/2020 5:30 Assessment//Plan Hospital Problems Last Modified POA CAD (coronary artery disease) 09/11/2020 Yes Overview Signed 01/29/2015 10:43 AM by Vanessa Mcguire MD mild - dx on cath - neg stress Nephrotic syndrome 09/11/2020 Yes Back muscle spasm 09/11/2020 Yes Unable to ambulate 09/11/2020 Yes GERD (gastroesophageal reflux disease) 09/11/2020 Yes MEGAN (acute kidney injury) (HCC) 09/11/2020 Yes Chronic back pain 09/11/2020 Yes Hyponatremia 09/12/2020 Yes Leukocytosis 09/12/2020 Yes Assessment: (Back pain obesity MEGAN). Plan: Encourage ambulation. Regular diet. (D/c planning). * Ruma Mccollum, PT - 09/12/2020 10:31 AM EDT Physical Therapy Facility/Department: [facility] Initial Assessment NAME: Sophie Hicks : 1965 Date of Service: 09/12/2020 Having reviewed the treatment plan and goals for this patient, I certify that the plan of care below is medically necessary and appropriate. Discharge Recommendations: Home with Home health PT PT Equipment Recommendations Equipment Needed: No Assessment Body structures, Functions, Activity limitations: Decreased functional mobility ;Decreased posture;Decreased endurance;Decreased balance;Increased pain Assessment: Pt is a 54 yo male who was admitted for back muscle spasms. Is currently CGA for all functional mobility. Limited by back pain/spasms, decreased activity tolerance/endurance, and overall fatigue. Is expected to benefit from skilled PT to improve overall indep and safety. Recommend pt resume [facility] PT upon home going. Prognosis: Good Decision Making: Low Complexity Exam: AM-PAC PT Education: Goals;PT Role;Gait Training;Plan of Care;General Safety REQUIRES PT FOLLOW UP: Yes Activity Tolerance Activity Tolerance: Patient limited by endurance Patient Diagnosis(es): The primary encounter diagnosis was Dyspnea and respiratory abnormalities. Diagnoses of Bilateral low back pain with bilateral sciatica, unspecified chronicity, Difficulty walking, and Frequent falls were also pertinent to this visit. has a past medical history of Benign essential HTN, CAD (coronary artery disease), Chronic kidney disease, COVID-19, CS (cervical spondylosis), History of colonic polyps, and Insomnia. has a past surgical history that includes Appendectomy; Neck surgery; Rotator cuff repair (Bilateral); Endoscopy, colon, diagnostic; and Colonoscopy. Restrictions Restrictions/Precautions Restrictions/Precautions: General Precautions, Fall Risk Required Braces or Orthoses?: No Vision/Hearing Vision: Within Functional Limits Hearing: Within functional limits Subjective General Chart Reviewed: Yes Patient assessed for rehabilitation services?: Yes Family / Caregiver Present: No Follows Commands: Within Functional Limits General Comment Comments: Per RN pt ok for OOB activity Pain Screening Patient Currently in Pain: Yes (reports bilat LE pain and back pain, did not rate intensity) Vital Signs Patient Currently in Pain: Yes (reports bilat LE pain and back pain, did not rate intensity) Orientation Orientation Overall Orientation Status: Within Normal Limits Social/Functional History Social/Functional History Lives With: Spouse Type of Home: House Home Layout: One level Home Access: Ramped entrance Home Equipment: Rolling walker, Roll About ADL Assistance: Independent Homemaking Assistance: Independent Homemaking Responsibilities: No ( completes) Ambulation Assistance: Independent (with FWW or rollator) Transfer Assistance: Independent Active Crusher Supervisor: No Patient's Crusher Supervisor Info: spouse Type of occupation: denies employment Additional Comments: reports three falls in the past three months due to dizziness Cognition Cognition Overall Cognitive Status: WNL Objective Observation/Palpation Posture: Fair AROM RLE (degrees) RLE AROM: WFL AROM LLE (degrees) LLE AROM : WFL Strength RLE Strength RLE: WFL Strength LLE Strength LLE: WFL Bed mobility Supine to Sit: Independent Sit to Supine: Independent Scooting: Independent Comment: reports dizziness upon sitting EOB, resolved with static sitting Transfers Sit to Stand: Contact guard assistance Stand to sit: Contact guard assistance Comment: with FWW Ambulation Ambulation?: Yes More Ambulation?: No Ambulation 1 Surface: level tile Device: Rolling Walker Assistance: Contact guard assistance Gait Deviations: Slow [place]iney Distance: 60' Comments: no acute LOB or unsteadiness observed, noted to have decreased endurance Stairs/Curb Stairs?: No Balance Posture: Fair Sitting - Static: Good Sitting - Dynamic: Good Standing - Static: Fair;- Standing - Dynamic: -;Fair Plan Plan Times per week: 3 visits Current Treatment Recommendations: Strengthening, Transfer Training, Endurance Training, Patient/Caregiver Education & Training, Pain Management, Balance Training, Gait Training, Home Exercise Program, Functional Mobility Training, Safety Education & Training Plan Comment: Goals and/or treatment plan established in collaboration with patient Safety Devices Type of devices: All fall risk precautions in place, Patient at risk for falls, Left in bed, Call light within reach, Gait belt, Nurse notified Restraints Initially in place: No OutComes Score AM-PAC Mobility Inpatient How much difficulty turning over in bed?: None How much difficulty sitting down on / standing up from a chair with arms?: None How much difficulty moving from lying on back to sitting on side of bed?: None How much help from another person moving to and from a bed to a chair?: None How much help from another person needed to walk in hospital room?: None How much help from another person for climbing 3-5 steps with a railing?: A Little AM-PAC Inpatient Mobility Raw Score : 23 AM-PAC Inpatient T-Scale Score : 56.93 Mobility Inpatient CMS 0-100% Score: 11.2 Mobility Inpatient CMS G-Code Modifier : CI AM-PAC Score AM-PAC Inpatient Mobility Raw Score : 23 (09/12/201030) AM-PAC Inpatient T-Scale Score : 56.93 (09/12/201030) Mobility Inpatient CMS 0-100% Score: 11.2 (09/12/201030) Mobility Inpatient CMS G-Code Modifier : CI (09/12/201030) Goals Short term goals Time Frame for Short term goals: 3 visits Short term goal 1: Pt will complete functional tranfers at MOD I with a FWW Short term goal 2: Pt will ambulate 150' with a FWW at MOD I to demo improved endurance Patient Goals Patient goals : Go home Therapy Time Individual Concurrent Group Co-treatment Time In 1009 Time Out 1020 Minutes 11 Patient's physical therapy plan of care supervision is transferred to Inpatient Therapy Services Department physical therapist. Ruma Mccollum PT * Wiliam Fernandez MD - 09/12/2020 8:07 AM EDT Progress Note Date:09/12/2020 Room:[address] [place] [address] Patient Name:Sophie Hicks Date of :1965 Age:54 y.o. Subjective Subjective: Symptoms: Improved. Diet: Poor intake. Pain: He complains of pain that is moderate. Review of Systems Objective Vitals Last 24 Hours: TEMPERATURE: Temp Av.9 F (36.6 C) Min: 97.1 F (36.2 C) Max: 98.5 F (36.9 C) RESPIRATIONS RANGE: Resp Av.3 Min: 16 Max: 21 PULSE OXIMETRY RANGE: SpO2 Av.5 % Min: 94 % Max: 99 % PULSE RANGE: Pulse Av.2 Min: 79 Max: 104 BLOOD PRESSURE RANGE: Systolic (24hrs), Av , Min:128 , Max:168 ; Diastolic (24hrs), Av, Min:70, Max:97 I/O (24Hr): Intake/Output Summary (Last 24 hours) at 09/12/2020 0807 Last data filed at 09/12/2020 0638 Gross per 24 hour Intake Output 1550 ml Net -1550 ml Objective: General Appearance: Uncomfortable. Vital signs: (most recent): Blood pressure (!) 151/71, pulse 104, temperature 97.1 F (36.2 C), temperature source Temporal, resp. rate 20, height 6' 1 (1.854 m), weight (!) 372 lb (168.7 kg), SpO2 94 %. (Elevated BP). HEENT: Normal HEENT exam. Lungs: Normal effort and normal respiratory rate. Breath sounds clear to auscultation. Heart: Normal rate. Regular rhythm. S1 normal. Abdomen: Abdomen is soft. (Obese). Neurological: Patient is alert. Pupils: Pupils are equal, round, and reactive to light. Labs/Imaging/Diagnostics Labs: CBC: Recent Labs 09/11/20 1024 09/12/20 015 WBC 10.4 11.4* RBC 4.65 4.62 HGB 14.1 13.5 HCT 39.8* 39.5* MCV 85.7 85.4 RDW 14.3 14.5 PLT 222 226 CHEMISTRIES: Recent Labs 09/11/20 1024 09/12/20 015 NA 134* 130* K 4.0 3.0* CL 95* 94* CO2 30 29 BUN 33* 33* CREATININE 1.45* 1.49* GLUCOSE 297* 171* MG 1.7 1.7 PT/INR:No results for input(s): PROTIME, INR in the last 72 hours. APTT:No results for input(s): APTT in the last 72 hours. LIVER PROFILE: Recent Labs 09/11/20 1024 09/12/20 0152 AST 25 24 ALT 24 21 BILITOT 0.4 0.5 ALKPHOS 80 64 Imaging Last 24 Hours: XR LUMBAR SPINE (2-3 VIEWS) Result Date: 09/11/2020 Patient Name: SOPHIE HICKS Diagnostic Radiology ACCESSION EXAM DATE/TIME PROCEDURE ORDERING PROVIDER [id number] 09/11/2020 17:05 EDT CR Spine Lumbosacral 2 [id number] -POLCE, KAMAR or 3 Views CPT code 63828 Reason For Exam (CR Spine Lumbosacral 2 or 3 Views) low back pain Report HISTORY: Back pain AP and lateral views of the lumbar spine were obtained. A coned-down lateral image of the sacrum was also obtained. Comparisons available: None. FINDINGS: There are 5 nonrib bearing lumbar type vertebral bodies. Vertebral body height and alignment is maintained without evidence of acute fracture or subluxation. There is only mild degenerative changes noted. They are in the thoracic spine at T9, T10, and T11. Minor facet hypertrophy is noted in the lower lumbar spine. The bowel gas pattern is nonobstructed. There are few small bowel loops which are slightly distended with gas and have a stacked appearance. Recommend correlation for any abdominal/GI symptoms. IMPRESSION: No acute osseous abnormality. Minimal degenerative change. Report Dictated on --- Final --- Dictating Physician: MD RODRIGUEZ TOM A Signed Date and Time: 09/11/2020 5:36 pm Signed by: MD RODRIGUEZ TOM A Transcribed Date and Time: 09/11/2020 5:37 XR CHEST PORTABLE Result Date: 09/11/2020 Patient Name: SOPHIE HICKS [facility]#: [id number] Diagnostic Radiology ACCESSION EXAM DATE/TIME PROCEDURE ORDERING PROVIDER [id number] 09/11/2020 10:33 EDT CR Chest Portable [id number] -POLCE, KAMAR CPT code 82056 Reason For Exam (CR Chest Portable) shortness of breath Report EXAM TYPE: RADIOLOGIC EXAMINATION, CHEST, SINGLE VIEW FRONTAL (CXR SINGLE VIEW) EXAM DATE AND TIME: 09/11/2020 10:33 AM EDT INDICATION: Respiratory distress COMPARISON: 07/23/2020 TECHNIQUE: A single frontal view ofthe thorax was obtained and reviewed. Special views: None. IMPRESSION: 1. Lines/Tubes/Devices/Hardware: Monitoring leads. Please confirm position/function of devices/catheters clinically. 2. Lungs: No consolidation or pulmonary edema. 3. Pleura: No significant effusion. No significant pneumothorax.4. Heart and mediastinum: Limited due to technique. 5. Upper abdomen: No acute process seen. 6. Thorax:No acute bony process Report Dictated on --- Final --- Dictating Physician: MD DYE JOHN Signed Date and Time: 09/11/2020 11:03 am Signed by: MD DYE JOHN Transcribed Date and Time: 09/11/2020 11:04 XR Spine Thoracic 3 VW Result Date: 09/11/2020 Patient Name: SOPHIE HICKS Diagnostic Radiology ACCESSION EXAM DATE/TIME PROCEDURE ORDERING PROVIDER [id number] 09/11/2020 17:05 EDT CR Spine Thoracic 3 [id number] -POLCE, KAMAR Views CPT code 78216 Reason For Exam (CR Spine Thoracic 3 Views) mid back pain Report HISTORY: Back pain AP, lateral, and swimmers views of the thoracic spine were obtained. Comparisons available: None. FINDINGS: The thoracic vertebra demonstrate normal height and alignment, without evidence of acute fracture or subluxation. There is mild degenerative endplate spurring in the mid and lower thoracic spine. Posterior laminectomy and fusion changes are noted in the cervical spine. IMPRES ROSANNA: No acute fracture or subluxation seen. Mild degenerative endplate changes. Report Dictated onWorkstation: [id number] --- Final --- Dictating Physician: MD MARINA KERISTEN L Signed Date and Time: 09/11/2020 5:23 pm Signed by: MD MARINA KERISTEN L Transcribed Date and Time: 09/11/2020 5:30 Assessment//Plan Hospital Problems Last Modified POA CAD (coronary artery disease) 09/11/2020 Yes Overview Signed 01/29/2015 10:43 AM by Vanessa Mcguire MD mild - dx on cath - neg stress Nephrotic syndrome 09/11/2020 Yes Back muscle spasm 09/11/2020 Yes Unable to ambulate 09/11/2020 Yes GERD (gastroesophageal reflux disease) 09/11/2020 Yes MEGAN (acute kidney injury) (HCC) 09/11/2020 Yes Chronic back pain 09/11/2020 Yes Hyponatremia 09/12/2020 Yes Leukocytosis 09/12/2020 Yes Assessment: (Intractable back pain CAD MEGAN/nephrotic syndrome Polypharmacy obesity). Plan: Regular diet. (Pain control Nephrology Try to decrease medication). * Kirstin Sánchez MD - 09/12/2020 6:57 AM EDT Images from the original note were not included. Medical Teaching Service Progress Note Patient: Sophie Hicks : 1965 Acct: [id number] PCP: Naima Rodriguez MD Admitting Physician: Wiliam Fernandez MD Admission Date: 09/11/2020 Admitting Diagnosis: Back muscle spasm [M62.830] Unit/Bed: 460/4601 Hospital Day: 0 Code Status: Full Code Subjective: Overnight events: ultram 50mg and morphine 4mg overnight. Patient continues to report back pain and some perioral numbness, however, reports it's better thanday prior. Patient once again endorses he has chronic numbness/tingling in upper and lower extremities, but facial numbness is worse than before. Patient reports Dr. Fernandez told patient he will restart his cyclophosphamide. No concerns per nursing. When spoke to patient about his PDMP and how there are multiple medications being given by multipleproviders, he states there is a gentlemen with same name and birthdate in [place] who is on those meds, and his human services case manager can verify. Told patient our CM will touch base and see if we can clear things up. PRN: zofran 4mg 09/12 @ 0147 Objective: Vitals: 09/11/20 2327 09/12/20 0744 09/12/20 0935 09/12/20 1325 BP: (!) 143/74 (!) 151/71 Pulse: 79 104 Resp: 20 Temp: 97.6 F (36.4 C) 97.1 F (36.2 C) TempSrc: Temporal Temporal SpO2: 94% 94% 94% 93% Weight: Height: on room air Intake/Output Summary (Last 24 hours) at 09/12/2020 1343 Last data filed at 09/12/2020 0638 Gross per 24 hour Intake Output 1550 ml Net -1550 ml net: -1.5L last 24, -1.5 since admit Physical Exam Vitals and nursing note reviewed. Constitutional: General: He is not in acute distress. Appearance: He is obese. Comments: Appears uncomfortable. A&Ox3 HENT: Head: Normocephalic and atraumatic. Mouth/Throat: Mouth: Mucous membranes are moist. Pharynx: Oropharynx is clear. Eyes: Extraocular Movements: Extraocular movements intact. Pupils: Pupils are equal, round, and reactive to light. Cardiovascular: Rate and Rhythm: Normal rate and regular rhythm. Pulses: Dorsalis pedis pulses are 2+ on the right side and 2+ on the left side. Posterior tibial pulses are 2+ on the right side and 2+ on the left side. Heart sounds: Normal heart sounds. Pulmonary: Effort: Pulmonary effort is normal. No respiratory distress. Breath sounds: Normal breath sounds. No wheezing. Abdominal: General: Bowel sounds are normal. Tenderness: There is abdominal tenderness (generalized). Comments: Abdomen protuberant, mild distention Musculoskeletal: General: Normal range of motion. Cervical back: Normal range of motion and neck supple. Thoracic back: Tenderness present. Lumbar back: Spasms and tenderness present. Comments: Trace edema b/l LE Bilateral paravertebral muscle tenderness. No spinal tenderness, no step-offs or deformities. Moving all extremities normally. Skin: General: Skin is warm. Capillary Refill: Capillary refill takes less than 2 seconds. Neurological: Mental Status: He is oriented to person, place, and time. Comments: A&Ox3. 5/5 strength of b/l upper and 4/5 lower extremities. Stream Control Officer strength equal bilaterally. Sensation grossly intact in UE and LE bilaterally. Heel to oropeza slightly abnormal likely d/tbody habitus. Finger-nose testing normal. Normal rapid alternating movements. No resting tremor. Psychiatric: Mood and Affect: Mood normal. Behavior: Behavior normal. Thought Content: Thought content normal. Judgment: Judgment normal. Conte: No Drains: No Central Line/Port: No Diet: DIET RENAL; Medications: cyclophosphamide 150 mg Oral BID aspirin 81 mg Oral Daily atorvastatin 80 mg Oral Nightly dicyclomine 10 mg Oral TID AC pantoprazole 40 mg Oral BID WC sulfamethoxazole-trimethoprim 1 tablet Oral Once per day on Thu tamsulosin 0.4 mg Oral Daily torsemide 20 mg Oral BID sodium chloride flush 5-40 mL Intravenous 2 times per day senna 5 mL Oral Nightly heparin (porcine) 5,000 Units Subcutaneous 3 times per day lidocaine 1 patch Transdermal Daily ipratropium-albuterol 1 ampule Inhalation Q4H WA Continuous Infusions: sodium chloride PRN Meds:baclofen, sodium chloride flush, sodium chloride, promethazine OR ondansetron, acetaminophen OR acetaminophen, melatonin Labs: CBC: Recent Labs 09/11/20 1024 09/12/20 0152 WBC 10.4 11.4* RBC 4.65 4.62 HGB 14.1 13.5 HCT 39.8* 39.5* MCV 85.7 85.4 RDW 14.3 14.5 PLT 222 226 BMP: Recent Labs 09/11/20 1024 09/12/20 0152 NA 134* 130* K 4.0 3.0* CL 95* 94* CO2 30 29 BUN 33* 33* CREATININE 1.45* 1.49* GLUCOSE 297* 171* CALCIUM 8.8 8.6 ANIONGAP 9 7 LIVER PROFILE: Recent Labs 09/11/20 1024 09/12/20 0152 AST 25 24 ALT 24 21 BILITOT 0.4 0.5 ALKPHOS 80 64 LABALBU 3.9 3.8 PROT 6.9 6.8 PT/INR:No results for input(s): PROTIME, INR in the last 72 hours. CARDIAC ENZYMES: Recent Labs 09/11/20 1024 09/12/20 1034 TROPONINI <0.012 <0.012 Procalcitonin: Lab Results Component Value Date PROCAL 0.10 04/29/2020 Glucose: Recent Labs 09/11/20 1027 POCGLU 262* ASSESSMENT/PLAN: Active Hospital Problems Diagnosis Hyponatremia [E87.1] Leukocytosis [D72.829] Back muscle spasm [M62.830] Unable to ambulate [R26.2] GERD (gastroesophageal reflux disease) [K21.9] MEGAN (acute kidney injury) (HCC) [N17.9] Chronic back pain [M54.9, G89.29] Nephrotic syndrome [N04.9] CAD (coronary artery disease) [I25.10] Back pain/spasms and inability to ambulate due to debility vs severe dyspnea vs other H/o Chronic back pain, lumbar stenosis H/o Neuropathy & Cervicalgia, h/o fusion of cervical spine, now with perioral paresthesia Has had increasing falls, no head trauma, back pain that's radiating down feet. Neurosurgery following patient OP, had ordered MRI of L spine to be done, but not completed, will order imaging here this admission and consider neuro consult pending results. XR T & L spine: No acute abnormalities,mild/minimal degenerative changes. - Pain control - started oxycodone 5-10mg q4h prn - Lidocaine patch - Tylenol prn - Can consider escalating pain regimen and/or scheduling muscle relaxant - PDMP reviewed - multiple narcotic prescriptions by multiple different prescribers - Continue Baclofen 10mg TID prn - Duonebs q4h prn - Supplemental O2 as needed - Obtain MRI of T & L spine w/o contrast - Consider CT head - Consider Vit B12, folate - PT/OT > home w/ home health - SW/CM > active w/ [facility] Neprotic syndrome/membranous nephropathy, Renal failure MEGAN Cr 1.45>1.49, b/l Cr ~1 (Cr at discharge on 08/26 1.69). [address] Bauman OP, supposedly had to start ?chemo, unsure what meds, wants nephro to follow. Urine studies unremarkable, but urine protein elevated. - Nephro recs - Hold metolazone - Cont Torsemide 20mg BID, Bactrim MWF - Start Cyclophosphamide 150mg BID (pharm to obtain) - Discontinue prednisone 60mg daily - Permissive BP, no IVF skye - Continue Flomax 0.4mg qhs - Daily CBC/BMP - Strict I/Os - Daily weights - Monitor signs of urinary retention - Avoid nephrotoxins HypoNa/HypoK Na 134 > 130, K 3 - Monitor BMP - Nephro following - replete as needed Leukocytosis likely d/t steroids - monitor CBC CAD - ASA 81mg daily - Atorvastatin 80mg qhs GERD - Pantoprazole 40mg daily Chronic constipation/abdominal cramping - Dicyclomine 10mg TID - Sennakot qhs FEN/GI/DVT IVF: None Electrolytes: Monitor and replace per protocols Diet: Renal GI PPX: No DVT Prophylaxis: Subcutaneous heparin DISPOSITION: pain ctrl, imaging, possible d/c with OP f/u, decrease med[facility] Phone: [phone] History of Present illness Narrative* Daja Bucio RN - 08/26/2020 1:58 PM EDT Gave patient discharge instructions, patient verbalized understanding. Patient stated that he was not scheduled to resume the Cyclophosphamide until next month and that he would not be taking this medication until that time regardless. IV discontinued. Patient to forklift picker scripts at pharmacy. DME walker given to patient. * Frankie Rodriguez MD - 08/26/2020 7:38 AM EDT FP Attending Progress Note 08/26/2020 7:38 AM Subjective: Admit Date: 08/22/2020 PCP: Naima Rodriguez MD HPI: 54 y.o. male with multiple medical problems who is being seen today for routine hospital checkafter being admitted for fluid overload from Nephrology offices. Overnight, he became lightheaded and dizzy and subsequently had a fall - CT and XRay ordered for follow up were negative. Mr Hicks is only complaining of a slight discomfort in his arm from the fall, but otherwise is feeling well. Diet: DIET RENAL; Medications: Scheduled Meds: torsemide 20 mg Oral BID ipratropium-albuterol 1 ampule Inhalation BID pregabalin 75 mg Oral BID sodium chloride flush 5-40 mL Intravenous 2 times per day aspirin 81 mg Oral Daily atorvastatin 80 mg Oral Nightly [Held by provider] cyclophosphamide 150 mg Oral Q6H pantoprazole 40 mg Oral BID WC sulfamethoxazole-trimethoprim 1 tablet Oral Once per day on Thu predniSONE 60 mg Oral Daily traZODone 50 mg Oral Nightly melatonin 6 mg Oral Nightly Continuous Infusions: sodium chloride CBC: Recent Labs 08/24/20 0323 08/25/20 0440 08/26/20 0342 WBC 13.5* 12.3* 12.1* HGB 14.0 14.5 14.1 PLT 219 217 216 BMP: Recent Labs 08/25/20 0440 08/25/20 1903 08/26/20 0342 NA 136 132* 136 K 3.6 3.9 3.3* CL 98 95* 97* CO2 30 27 31* BUN 31* 38* 38* CREATININE 1.65* 1.96* 1.69* GLUCOSE 143* 296* 154* Objective: Vitals: BP 132/76 Pulse 68 Temp 96.3 F (35.7 C) (Temporal) Resp 18 Wt (!) 361 lb 9.6 oz (164 kg) SpO2 96% BMI 47.71 kg/m General appearance: alert and cooperative with exam HEENT: Head: Normocephalic, no lesions, without obvious abnormality. Neck: no adenopathy, no carotid bruit, no JVD, supple, symmetrical, trachea midline and thyroid notenlarged, symmetric, no tenderness/mass/nodules Lungs: clear to auscultation bilaterally Heart: regular rate and rhythm, S1, S2 normal, no murmur, click, rub or gallop Abdomen: obese, +BS, soft, NT/ND Extremities: able to move all 4 extremities, 1+ edema noted bilaterally Neurologic: Mental status: Alert, oriented, thought content appropriate Assessment and Plan: 1. Nephrotic Syndrome - Currently on Prednisone treatment per Nephrology with good improvement in proteinuria. Responding to diuresis well; Nephrology following - transitioned to Torsemide oral at this time - review Nephrology recommendations and monitor 2. Chronic Pain - Needs to follow up with surgeon for this; pain management not feeling like this was appropriate for them to treat. 3. GERD - Stable, continue to monitor 4. CAD - Stable, continue to monitor 5. Hyperlipidemia - Stable, continue Atorvastatin and monitor 6. Abdominal Cramping - Stable; monitor at this time Patient Active Problem List: DJD (degenerative joint disease) of cervical spine Multiple joint pain History of colonic polyps Insomnia CAD (coronary artery disease) Benign essential HTN Morbid obesity (HCC) COVID-19 Abdominal pain Nephrotic syndrome Diarrhea Neurological symptoms Diffuse membranous glomerulonephritis Hx: nephrotic syndrome Bilateral lower extremity edema TIA (transient ischemic attack) Mixed hyperlipidemia Peripheral edema Frankie Rodriguez MD, MD FP Attending * Tamia Olson RN - 08/25/2020 7:30 PM EDT Patient says he is seeing black spots. MTS Dr Sharp in to see the patient and made aware. The doctor also made aware that patient is c/o left arm and shoulder pain * Tamia Olson RN - 08/25/2020 7:06 PM EDT Per MTS Dr Sharp instructions, ice bag applied to forehead, left shoulder. Patient instructed to let the nurse know if he has a WALSH, change in vision, or ringing in his ears, Patient verbalized understanding * Tamia Olson RN - 08/25/2020 6:45 PM EDT Patient found on floor on his knees. Patient says he was getting out of bed to a chair, he felt light headed, both his head and his left arm hit the wall, then his left arm hit the floor. CLINICAL REVIEW SPECIALIST called,patient assisted back to bed. The CLINICAL REVIEW SPECIALIST nurse Bruno merritt, nursing maintenance mechanic supervisor Tenisha, ER nurse Bernadette Higgins, [facility] Dr Rosen, and MTS Dr Sharp all in the room. Patient denies vision problems at this time. MTS Dr Russo aware patient says he hit his head and left arm, * Keena Riddle, PT - 08/25/2020 1:44 PM EDT Physical Therapy Facility/Department: [facility] Initial Assessment NAME: Sophie Hicks : 1965 Date of Service: 08/25/2020 Discharge Recommendations: Home with assist PRN, Home with Home health PT PT Equipment Recommendations Equipment Needed: No Assessment Body structures, Functions, Activity limitations: Decreased functional mobility ;Decreased strength;Decreased safe awareness;Decreased endurance;Increased pain;Decreased balance Assessment: Pt admitted 08/23 due to increase in weight gain and LE discolaration and swelling. Patient found to have fluid overload and nephrotic syndrome. Pt presents with the above deficits limiting his functional independence. Upon evaluation patient is modified independent in bed mobility and requires SBA for transfers and ambulation with a FWW. Pt is limited by endurance, increased pain in BLE and dizziness. Patient should benefit from skilled PT to increase endurance, strength and balancewith mobility. Prognosis: Good Decision Making: Medium Complexity History: Pt admitted 08/23 due to increase in weight gain and LE discolaration and swelling. Patientfound to have fluid overload and nephrotic syndrome. Other significant PMH listed below. Exam: AM-PAC Clinical Presentation: Pt has PMH as indicated below that contributes to his clinical presentation.At baseline patient is functionally independent with use of rollator at times and lives in a singlelevel house with his spouse. Currently patient is at an increased fall and safety risk and has decreased endurance, strength and balance with mobility. Recommend [facility] PT and assist PRN upon acute caredischarge. PT Education: Goals;PT Role;Plan of Care;General Safety;Injury Prevention REQUIRES PT FOLLOW UP: Yes Activity Tolerance Activity Tolerance: Patient limited by fatigue;Patient limited by endurance;Patient limited by pain Patient Diagnosis(es): There were no encounter diagnoses. has a past medical history of Benign essential HTN, CAD (coronary artery disease), Chronic kidney disease, COVID-19, CS (cervical spondylosis), History of colonic polyps, and Insomnia. has a past surgical history that includes Appendectomy; Neck surgery; Rotator cuff repair (Bilateral); Endoscopy, colon, diagnostic; and Colonoscopy. Restrictions Restrictions/Precautions Restrictions/Precautions: General Precautions, Fall Risk Required Braces or Orthoses?: No Vision/Hearing Vision: Within Functional Limits Hearing: Within functional limits Subjective General Chart Reviewed: Yes Patient assessed for rehabilitation services?: Yes Family / Caregiver Present: No Follows Commands: Within Functional Limits General Comment Comments: Per RN patient okay for therapy. Subjective Subjective: Pt is lying in bed and agreeable to therapy. Pain Screening Patient Currently in Pain: Yes Pain Assessment Pain Assessment: 0-10 Pain Level: 7 Pain Type: Chronic pain Pain Location: Leg;Abdomen Pain Orientation: Left;Right (bilateral legs, upper abdomen) Pain Descriptors: Aching Non-Pharmaceutical Pain Intervention(s): Ambulation/Increased Activity;Repositioned (RN notified) Response to Pain Intervention: Patient Satisfied Vital Signs Patient Currently in Pain: Yes Orientation Orientation Overall Orientation Status: Within Normal Limits Social/Functional History Social/Functional History Lives With: Spouse Type of Home: House Home Layout: One level Home Access: Stairs to enter without rails (has stair lift into house) Entrance Stairs - Number of Steps: 2 Bathroom Shower/Tub: Walk-in shower Bathroom Toilet: Handicap height Bathroom Equipment: Grab bars in shower, Built-in shower seat Home Equipment: (rollator walker) Receives Help From: Family ADL Assistance: Independent Homemaking Assistance: Needs assistance (family assists w yard work) Homemaking Responsibilities: Yes Ambulation Assistance: Independent (uses rollator walker at times) Transfer Assistance: Independent Active Crusher Supervisor: No Patient's Crusher Supervisor Info: spouse 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 User may not have seen previous data.) Bed mobility Supine to Sit: Modified independent Sit to Supine: (sitting at EOB post-session) Scooting: Modified independent (to EOB) Comment: Patient completed all bed mobility Mod I and reported dizziness upon sitting that subsidedprior to standing. Transfers Sit to Stand: Stand by assistance Stand to sit: Stand by assistance Comment: Pt requires SBA for transfers for safety and uses FWW. Pt notes dizziness during standing that subsides within 30 seconds. Ambulation Ambulation?: Yes Ambulation 1 Surface: level tile Device: Rolling Walker Assistance: Stand by assistance Gait Deviations: Slow Destiney;Increased VICKIE Distance: 15'x2 Comments: Patient requires SBA due to reported dizziness for safety. Upon returning to bed patient left FWW to his side and abruptly sat reporting increased dizziness. Stairs/Curb Stairs?: No Balance Posture: Fair Sitting - Static: Good Sitting - Dynamic: Good Standing - Static: Good;- Standing - Dynamic: Fair;- Plan Plan Times per week: 5 visits Current Treatment Recommendations: Strengthening, Balance Training, Functional Mobility Training, Transfer Training, Endurance Training, Gait Training, Equipment Evaluation, Education, & procurement, Patient/Caregiver Education & Training, Safety Education & Training, Pain Management Plan Comment: All goals and/or treatment were established in collaboration with patient. Safety Devices Type of devices: All fall risk precautions in place, Call light within reach, Gait belt, Patient atrisk for falls, Left in bed, Nurse notified Restraints Initially in place: No AM-PAC Score AM-PAC Inpatient Mobility Raw Score : 19 (08/25/201340) AM-PAC Inpatient T-Scale Score : 45.44 (08/25/201340) Mobility Inpatient CMS 0-100% Score: 41.77 (08/25/201340) Mobility Inpatient CMS G-Code Modifier : CK (08/25/201340) Goals Short term goals Time Frame for Short term goals: 5 visits Short term goal 1: Patient will complete functional transfers MOD I with FWW. Short term goal 2: Patient will ambulate 75' MOD I with FWW to increase endurance. Short term goal 3: Patient will complete 1-2 sets/ 10 reps of LE exercises in order to increase strength and endurance for functional activity. Patient Goals Patient goals : Patient would like to decrease pain. Therapy Time Individual Concurrent Group Co-treatment Time In 1240 (co-eval with OT) Time Out 1250 Minutes 10 Keena Riddle PT * Renetta Child OT - 08/25/2020 1:25 PM EDT Occupational Therapy Occupational Therapy Initial Assessment Date: 08/25/2020 Patient Name: Sophie Hicks : 1965 Date of Service: 08/25/2020 Discharge Recommendations: Home with Home health OT, Home with assist PRN Assessment Performance deficits / Impairments: Decreased functional mobility ;Decreased ADL status;Decreased endurance;Decreased safe awareness;Decreased balance;Decreased high-level IADLs Assessment: Pt was previously independent in ADLs, functional transfers and mobility; pt now requires SBA for LB ADLs, sit<>stands and mobility. Pt is limited by impaired balance and endurance.Pt should benefit from skilled OT services in order to increase safety and independence in occupational participation. Prognosis: Good Decision Making: Medium Complexity History: Pt admitted with BLE discoloration and swelling as well as weight gain. Pt found to have volume overoad and nephrotic syndrome. Exam: [facility] Assistance / Modification: SBA OT Education: OT Role;Plan of Care;Transfer Training Barriers to Learning: none REQUIRES OT FOLLOW UP: Yes Activity Tolerance Activity Tolerance: Patient limited by fatigue Safety Devices Safety Devices in place: Yes Type of devices: All fall risk precautions in place;Call light within reach;Gait belt;Patient at risk for falls;Nurse notified;Left in bed Patient Diagnosis(es): There were no encounter diagnoses. has a past medical history of Benign essential HTN, CAD (coronary artery disease), Chronic kidney disease, COVID-19, CS (cervical spondylosis), History of colonic polyps, and Insomnia. has a past surgical history that includes Appendectomy; Neck surgery; Rotator cuff repair (Bilateral); Endoscopy, colon, diagnostic; and Colonoscopy. Restrictions Restrictions/Precautions Restrictions/Precautions: General Precautions, Fall Risk Required Braces or Orthoses?: No Subjective General Chart Reviewed: Yes Patient assessed for rehabilitation services?: Yes Family / Caregiver Present: No Subjective Subjective: Pt pleasant and cooperative. General Comment Comments: Per RN, ok for pt to participate in OT eval. Patient Currently in Pain: Yes Pain Assessment Pain Assessment: 0-10 Pain Level: 7 Pain Type: Chronic pain Pain Location: Leg;Abdomen Pain Orientation: Left;Right (bilateral legs, upper abdomen) Pain Descriptors: Aching Non-Pharmaceutical Pain Intervention(s): Ambulation/Increased Activity;Repositioned (RN notified) Response to Pain Intervention: Patient Satisfied Vital Signs Patient Currently in Pain: Yes Social/Functional History Social/Functional History Lives With: Spouse Type of Home: House Home Layout: One level Home Access: Stairs to enter without rails (has stair lift into house) Entrance Stairs - Number of Steps: 2 Bathroom Shower/Tub: Walk-in shower Bathroom Toilet: Handicap height Bathroom Equipment: Grab bars in shower, Built-in shower seat Home Equipment: (rollator walker) Receives Help From: Family ADL Assistance: Independent Homemaking Assistance: Needs assistance (family assists w yard work) Homemaking Responsibilities: Yes Ambulation Assistance: Independent (uses rollator walker at times) Transfer Assistance: Independent Active Crusher Supervisor: No Patient's Crusher Supervisor Info: spouse 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) Functional Mobility Functional - Mobility Device: ([facility]) Activity: To/from bathroom Assist Level: Stand by assistance Functional Mobility Comments: Pt ambulated with SBA for mobility and no LOB noted. Distance limitedby increased fatigue and dizziness with mobility. ADL Feeding: Independent Grooming: Modified independent UE Bathing: Modified independent LE Bathing: Stand by assistance UE Dressing: Modified independent LE Dressing: Stand by assistance Toileting: Modified independent Bed mobility Supine to Sit: Modified independent Sit to Supine: (sitting at EOB post-session) Scooting: Modified independent (to EOB) Comment: C/o slight dizziness upon sitting at EOB that subsided prior to completing transfers. Transfers Sit to stand: Stand by assistance Stand to sit: Stand by assistance Transfer Comments: at [facility]- pt required VC for safe hand placement as pt attempted to hold onto fww during transfer, pt also required VC for safe fww positioning as pt left fww to side prior tocompleting transfer. Pt with slight dizziness upon standing that resolved within ~5 seconds. Cognition Overall Cognitive Status: WFL Sensation Overall Sensation Status: WNL (no numbness or tingling Simultaneous filing. User may not have seen previous data.) LUE AROM (degrees) LUE AROM : WFL RUE AROM (degrees) RUE AROM : WFL LUE Strength Gross LUE Strength: WFL RUE Strength Gross RUE Strength: WFL Plan Plan Times per week: 5 visits Current Treatment Recommendations: Balance Training, Functional Mobility Training, Endurance Training, Safety Education & Training, Patient/Caregiver Education & Training, Pain Management, Equipment Evaluation, Education, & procurement, Home Management Training, Self-Care / ADL, Positioning Plan Comment: POC and goals were made in collaboration with the pt. AM-PAC Score AM-PAC Inpatient Daily Activity Raw Score: 22 (08/25/20 1318) AM-PAC Inpatient ADL T-Scale Score : 47.1 (08/25/201317) ADL Inpatient CMS 0-100% Score: 25.8 (08/25/201317) ADL Inpatient CMS G-Code Modifier : CJ (08/25/201317) Goals Short term goals Time Frame for Short term goals: 5 visits Short term goal 1: Pt will complete functional transfers and mobility with mod I. Short term goal 2: Pt will complete LB ADLs with mod I. Short term goal 3: Pt will complete functional standing >2 minutes with mod I in order to increase occupational participation. Therapy Time Individual Concurrent Group Co-treatment Time In 1240 (co-eval with PT) Time Out 1250 Minutes 10 Renetta Child OT * Mikey Bauman MD - 08/25/2020 12:51 PM EDT [facility] Subjective/ 54 y.o. year old male who we are seeing in consultation for Volume Overload, Nephrotic Syndrome. NAEON AF, BP stable Breathing is ok on RA Making good urine Eating ok Edema improving Weight is noted 12 points ROS done and negative unless mentioned as above No change in PFSH All data labs/interval notes and overnight issues are reviewed Objective/ Vitals: 08/24/20202608/25/20 0530 08/25/20 0748 08/25/20 1005 BP: 133/85 124/78 Pulse: 96 78 Resp: 18 19 Temp: 98 F (36.7 C) 97.8 F (36.6 C) TempSrc: Temporal Temporal SpO2: 93% 93% 97% Weight: (!) 365 lb 3.2 oz (165.7 kg) 24HR INTAKE/OUTPUT: Intake/Output Summary (Last 24 hours) at 08/25/2020 1251 Last data filed at 08/25/2020 1218 Gross per 24 hour Intake 900 ml Output 2500 ml Net -1600 ml General: NAD, Comfortable appearing, cooperative to history and physical exam. Head: AT NC Eyes: No icterus, no pallor Neck: Supple, no jvd Chest: B/L clear, no crackles, no accessory muscles usage. CV: RRR, no murmurs or rubs Abdomen: NT, ND, soft Extremities: 1+ B/l pitting peripheral edema, no tremor Neurological: Moving all four extremities, no focal neurological deficit Psychiatric: Normal insight and judgement, good recall Skin: No rashes on legs or arms, no bullae Data/ Recent Labs 08/23/20 0340 08/24/20 0323 08/25/20 0440 WBC 8.2 13.5* 12.3* HGB 13.9 14.0 14.5 HCT 40.6 40.6 42.3 MCV 86.2 86.0 85.8 PLT 190 219 217 Recent Labs 08/22/20 1758 08/23/20 0340 08/24/20 0323 08/25/20 0440 NA 136 138 133* 136 K 3.8 4.2 3.7 3.6 CL 105 105 99 98 CO2 28 26 27 30 GLUCOSE 179* 153* 143* 143* MG 1.7 -- -- -- BUN 14 17 23* 31* CREATININE 1.05 1.24 1.41* 1.65* Assessment/ 1. Membranous nephropathy 2. Immunosuppression. 3. Nephrotic syndrome. 4. Morbid obesity BMI 49 5. B/L leg edema. 6. GERD Plan/ - Creatinine is high today, having good output, BP is stable - Change diuresis to PO - volume status hypervolemic but improving - responding to the diuresis - still having cramping on the right side, receiving baclofen - C/w prednisone 60mg qday for now (month 3/6 of lashell) for membranous nephropathy. - weight is lower today - replace the electrolytes PRN - keep I<O 1.5-2.0 liters/day - will follow/call with questions - POssible discharge in AM. * Frankie Rodriguez MD - 08/25/2020 8:04 AM EDT FP Attending Progress Note 08/25/2020 8:04 AM Subjective: Admit Date: 08/22/2020 PCP: Naima Rodriguez MD HPI: 54 y.o. male with multiple medical problems who is being seen today for routine hospital checkafter being admitted for fluid overload from Nephrology offices. Doing well at this time with good response to diuresis. Diet: DIET RENAL; Medications: Scheduled Meds: ipratropium-albuterol 1 ampule Inhalation BID pregabalin 75 mg Oral BID sodium chloride flush 5-40 mL Intravenous 2 times per day furosemide 80 mg Intravenous BID aspirin 81 mg Oral Daily atorvastatin 80 mg Oral Nightly [Held by provider] bumetanide 1 mg Oral BID [Held by provider] cyclophosphamide 150 mg Oral Q6H pantoprazole 40 mg Oral BID sulfamethoxazole-trimethoprim 1 tablet Oral Once per day on Thu predniSONE 60 mg Oral Daily traZODone 50 mg Oral Nightly melatonin 6 mg Oral Nightly Continuous Infusions: sodium chloride CBC: Recent Labs 08/23/20 0340 08/24/20 0323 08/25/20 0440 WBC 8.2 13.5* 12.3* HGB 13.9 14.0 14.5 PLT 190 219 217 BMP: Recent Labs 08/23/2033908/24/20 0323 08/25/20 0440 NA 138 133* 136 K 4.2 3.7 3.6 CL 105 99 98 CO2 26 27 30 BUN 17 23* 31* CREATININE 1.24 1.41* 1.65* GLUCOSE 153* 143* 143* Objective: Vitals: BP 124/78 Pulse 78 Temp 97.8 F (36.6 C) (Temporal) Resp 19 Wt (!) 365 lb 3.2 oz (165.7 kg) SpO2 93% BMI 48.18 kg/m General appearance: alert and cooperative with exam HEENT: Head: Normocephalic, no lesions, without obvious abnormality. Neck: no adenopathy, no carotid bruit, no JVD, supple, symmetrical, trachea midline and thyroid notenlarged, symmetric, no tenderness/mass/nodules Lungs: clear to auscultation bilaterally Heart: regular rate and rhythm, S1, S2 normal, no murmur, click, rub or gallop Abdomen: obese, +BS, soft, NT/ND Extremities: able to move all 4 extremities, 1+ edema noted bilaterally Neurologic: Mental status: Alert, oriented, thought content appropriate Assessment and Plan: 1. Nephrotic Syndrome - Currently on Prednisone treatment per Nephrology with good improvement in proteinuria. Responding to diuresis well; Nephrology following - transition Lasix to PO today per their recommendations and monitor 2. Chronic Pain - Needs to follow up with surgeon for this; pain management not feeling like this was appropriate for them to treat. 3. GERD - Stable, continue to monitor 4. CAD - Stable, continue to monitor 5. Hyperlipidemia - Stable, continue Atorvastatin and monitor 6. Abdominal Cramping - Stable; monitor at this time Patient Active Problem List: DJD (degenerative joint disease) of cervical spine Multiple joint pain History of colonic polyps Insomnia CAD (coronary artery disease) Benign essential HTN Morbid obesity (HCC) COVID-19 Abdominal pain Nephrotic syndrome Diarrhea Neurological symptoms Diffuse membranous glomerulonephritis Hx: nephrotic syndrome Bilateral lower extremity edema TIA (transient ischemic attack) Mixed hyperlipidemia Peripheral edema Frankie Rodriguez MD FP Attending * Selene Sheets MD - 08/25/2020 6:02 AM EDT Images from the original note were not included. Medical Teaching Service Progress Note Patient: Sophie Hicks : 1965 Acct: [id number] PCP: Naima Rodriguez MD Admitting Physician: Naima Rodriguez MD Admission Date: 08/22/2020 Admitting Diagnosis: Nephrotic syndrome [N04.9] Unit/Bed: 149/1492 Hospital Day: 3 Code Status: Full Code Subjective: Overnight events: NAEON. This morning: Patient states that he is feeling much better today. He said his range of motion of his feet has improved even more so. He denied having any CP, SOB, n/v/d, fevers, chills and night sweats. Objective: Vitals: 08/24/20 0733 08/24/20 1801 08/24/20202608/25/20 0530 BP: 137/80 133/85 Pulse: 83 96 Resp: 18 18 18 Temp: 98.2 F (36.8 C) 98 F (36.7 C) TempSrc: Temporal Temporal SpO2: 92% 94% 93% Weight: (!) 365 lb 3.2 oz (165.7 kg) Intake/Output Summary (Last 24 hours) at 08/25/2020 0602 Last data filed at 08/24/20202026 Gross per 24 hour Intake 355 ml Output 2150 ml Net -1795 ml Physical Exam Vitals and nursing note reviewed. Constitutional: General: He is not in acute distress. Appearance: Normal appearance. He is obese. He is not ill-appearing, toxic- appearing or diaphoretic. HENT: Head: Normocephalic and atraumatic. Right Ear: External ear normal. Left Ear: External ear normal. Nose: Nose normal. Mouth/Throat: Mouth: Mucous membranes are moist. Eyes: General: Right eye: No discharge. Left eye: No discharge. Conjunctiva/sclera: Conjunctivae normal. Cardiovascular: Rate and Rhythm: Normal rate and regular rhythm. Pulses: Normal pulses. Heart sounds: Normal heart sounds. No murmur heard. No friction rub. No gallop. Pulmonary: Effort: Pulmonary effort is normal. No respiratory distress. Breath sounds: No wheezing (improved) or rhonchi. Abdominal: General: Abdomen is flat. Bowel sounds are normal. There is no distension. Palpations: Abdomen is soft. Tenderness: There is no abdominal tenderness. There is no guarding or rebound. Musculoskeletal: General: Normal range of motion. Cervical back: Normal range of motion and neck supple. Right lower leg: Edema (improving) present. Left lower leg: Edema (improving) present. Skin: General: Skin is warm and dry. Neurological: General: No focal deficit present. Mental Status: He is alert and oriented to person, place, and time. Diet: DIET RENAL; Medications: ipratropium-albuterol 1 ampule Inhalation BID pregabalin 75 mg Oral BID sodium chloride flush 5-40 mL Intravenous 2 times per day furosemide 80 mg Intravenous BID aspirin 81 mg Oral Daily atorvastatin 80 mg Oral Nightly [Held by provider] bumetanide 1 mg Oral BID [Held by provider] cyclophosphamide 150 mg Oral Q6H pantoprazole 40 mg Oral BID WC sulfamethoxazole-trimethoprim 1 tablet Oral Once per day on Thu predniSONE 60 mg Oral Daily traZODone 50 mg Oral Nightly melatonin 6 mg Oral Nightly Continuous Infusions: sodium chloride PRN Meds:baclofen, sodium chloride flush, sodium chloride, promethazine OR ondansetron, acetaminophen OR acetaminophen, dicyclomine Labs: CBC: Recent Labs 08/23/20 0340 08/24/20 0323 08/25/20 0440 WBC 8.2 13.5* 12.3* RBC 4.72 4.72 4.93 HGB 13.9 14.0 14.5 HCT 40.6 40.6 42.3 MCV 86.2 86.0 85.8 RDW 15.0* 15.0* 15.1* PLT 190 219 217 BMP: Recent Labs 08/23/20 0340 08/24/20 0323 08/25/20 0440 NA 138 133* 136 K 4.2 3.7 3.6 CL 105 99 98 CO2 26 27 30 BUN 17 23* 31* CREATININE 1.24 1.41* 1.65* GLUCOSE 153* 143* 143* CALCIUM 9.1 9.0 8.9 ANIONGAP 7 7 8 LIVER PROFILE:No results for input(s): AST, ALT, BILITOT, ALKPHOS, LABALBU, PROT in the last 72 hours. PT/INR:No results for input(s): PROTIME, INR in the last 72 hours. CARDIAC ENZYMES: No results for input(s): TROPONINI in the last 72 hours. Urine Cr: 96.7 Urine protein: 322 Urine protien : Cr is 3.3 Procalcitonin: Lab Results Component Value Date PROCAL 0.10 04/29/2020 Glucose: No results for input(s): POCGLU in the last 72 hours. ASSESSMENT/PLAN: Active Hospital Problems Diagnosis Mixed hyperlipidemia [E78.2] Hx: nephrotic syndrome [Z87.441] Nephrotic syndrome [N04.9] Abdominal pain [R10.9] CAD (coronary artery disease) [I25.10] Insomnia [G47.00] ASSESSMENT/PLAN: Fluid overload 2/2 nephrotic syndrome - membranous nephropathy. -7400cc total since admission. Improving. - f/u nephro - goal is 1.5 to 2L daily - continue IV lasix 80 BID --> will consider switching to PO today - defer to nephrology. - Metolazone daily - stopped yesterday - 2/2 patient having cramping. - continue Prednisone 60 mg daily - for membranous nephropathy. - f/u urine protien/creatinine ratio - as above - continue TMP-SMX 800mg-160 mg 2x weekly double strenght MWF - supplemental O2 as needed - continue duoneb q4h PRN - HOLD cyclophosphamide 50 mg every 6 hour daily - HOLD bumetanide 1 mg BID - Strict I/O, Daily weight - Daily CBC/CMP Chronic back pain - STOP gabapentin 300 mg TID - STOP norco 325-5mg qhs PRN - Continue baclofen 5 mg tid prn - Tylenol 1g q8h GERD - continue Pantoprazole CAD - Continue ASA - Continue atorvastatin 80 mg daily Abdominal cramping - continue dicyclomine 10 TID FEN/GI/DVT: IVF: None Electrolytes: Monitor and replace per protocols Diet: Renal GI PPX: Yes DVT Prophylaxis: Subcutaneous heparin DISPOSITION: will defer to nephro for discharge planning. Blaine Ordonez (PGY1) 6:04 AM 08/25/20 I have personally seen the patient and performed a physical exam. I have discussed the patient withthe resident and attending. I have reviewed the note and agree with the assessment and plan as documented above with my changes documented in blue font. Selene Sheets MD 08/25/2020 3:45 PM * Frankie Rodriguez MD - 08/24/2020 10:12 AM EDT Images from the original note were not included. Medical Teaching Service Progress Note Patient: Sophie Hicks : 1965 Acct: [id number] PCP: Naima Rodriguez MD Admitting Physician: Naima Rodriguez MD Admission Date: 08/22/2020 Admitting Diagnosis: Nephrotic syndrome [N04.9] Unit/Bed: 149/1492 Hospital Day: 2 Code Status: Full Code Subjective: Overnight events: NAEON. Patient was seen resting comfortably in bed. He states that he feels much better today. He denied having any cramping in his feet last night. He states that he has improved mobility of his feet and the swelling in his feet has improved. Objective: Vitals: 08/23/20 1013 08/23/20 1954 08/24/20 0615 08/24/20 0733 BP: 134/67 137/80 Pulse: 95 83 Resp: 17 18 Temp: 97.6 F (36.4 C) 98.2 F (36.8 C) TempSrc: Temporal Temporal SpO2: 96% 96% 92% Weight: (!) 368 lb 3.2 oz (167 kg) Intake/Output Summary (Last 24 hours) at 08/24/2020 1012 Last data filed at 08/24/2020 0937 Gross per 24 hour Intake 1060 ml Output 3420 ml Net -2360 ml Physical Exam Vitals signs and nursing note reviewed. Constitutional: General: He is not in acute distress. Appearance: Normal appearance. He is obese. He is not ill-appearing, toxic- appearing or diaphoretic. HENT: Head: Normocephalic and atraumatic. Right Ear: External ear normal. Left Ear: External ear normal. Nose: Nose normal. Mouth/Throat: Mouth: Mucous membranes are moist. Eyes: General: Right eye: No discharge. Left eye: No discharge. Conjunctiva/sclera: Conjunctivae normal. Neck: Musculoskeletal: Normal range of motion and neck supple. Cardiovascular: Rate and Rhythm: Normal rate and regular rhythm. Pulses: Normal pulses. Heart sounds: Normal heart sounds. No murmur. No friction rub. No gallop. Pulmonary: Effort: Pulmonary effort is normal. No respiratory distress. Breath sounds: No wheezing (improved) or rhonchi. Abdominal: General: Abdomen is flat. Bowel sounds are normal. There is no distension. Palpations: Abdomen is soft. Tenderness: There is no abdominal tenderness. There is no guarding or rebound. Musculoskeletal: Normal range of motion. Right lower leg: Edema (improving) present. Left lower leg: Edema (improving) present. Skin: General: Skin is warm and dry. Neurological: General: No focal deficit present. Mental Status: He is alert and oriented to person, place, and time. Diet: DIET RENAL; Medications: ipratropium-albuterol 1 ampule Inhalation BID pregabalin 75 mg Oral BID sodium chloride flush 5-40 mL Intravenous 2 times per day furosemide 80 mg Intravenous BID metOLazone 2.5 mg Oral QAM aspirin 81 mg Oral Daily atorvastatin 80 mg Oral Nightly [Held by provider] bumetanide 1 mg Oral BID [Held by provider] cyclophosphamide 150 mg Oral Q6H pantoprazole 40 mg Oral BID sulfamethoxazole-trimethoprim 1 tablet Oral Once per day on Thu predniSONE 60 mg Oral Daily traZODone 50 mg Oral Nightly melatonin 6 mg Oral Nightly Continuous Infusions: sodium chloride PRN Meds:baclofen, sodium chloride flush, sodium chloride, promethazine OR ondansetron, acetaminophen OR acetaminophen, dicyclomine Labs: CBC: Recent Labs 08/22/20175708/23/200 08/24/20 0323 WBC 8.5 8.2 13.5* RBC 4.54 4.72 4.72 HGB 13.5 13.9 14.0 HCT 39.2* 40.6 40.6 MCV 86.2 86.2 86.0 RDW 15.3* 15.0* 15.0* PLT 200 190 219 BMP: Recent Labs 08/22/20175708/23/2033908/24/20 0323 NA 136 138 133* K 3.8 4.2 3.7 CL 105 105 99 CO2 28 26 27 BUN 14 17 23* CREATININE 1.05 1.24 1.41* GLUCOSE 179* 153* 143* CALCIUM 9.1 9.1 9.0 ANIONGAP 4 7 7 LIVER PROFILE:No results for input(s): AST, ALT, BILITOT, ALKPHOS, LABALBU, PROT in the last 72 hours. PT/INR:No results for input(s): PROTIME, INR in the last 72 hours. CARDIAC ENZYMES: No results for input(s): TROPONINI in the last 72 hours. Urine Cr: 96.7 Urine protein: 322 Urine protien : Cr is 3.3 Procalcitonin: Lab Results Component Value Date PROCAL 0.10 04/29/2020 Glucose: No results for input(s): POCGLU in the last 72 hours. ASSESSMENT/PLAN: Active Hospital Problems Diagnosis Mixed hyperlipidemia [E78.2] Hx: nephrotic syndrome [Z87.441] Nephrotic syndrome [N04.9] Abdominal pain [R10.9] CAD (coronary artery disease) [I25.10] Insomnia [G47.00] ASSESSMENT/PLAN: Fluid overload 2/2 nephrotic syndrome Symptoms have significantly improved today. - f/u nephro - goal is 1.5 to 2L daily - continue IV lasix 80 BID - continue Metolazone daily - continue Prednisone 60 mg daily - f/u urine protien/creatinine ratio - as above - continue TMP-SMX 800mg-160 mg 2x weekly double strenght MWF - supplemental O2 as needed - continue duoneb q4h PRN - HOLD cyclophosphamide 50 mg every 6 hour daily - HOLD bumetanide 1 mg BID - Strict I/O, Daily weight - Daily CBC/CMP - Continue current plan Chronic back pain - STOP gabapentin 300 mg TID - STOP norco 325-5mg qhs PRN - Continue baclofen 5 mg tid prn - Tylenol 1g q8h GERD - continue Pantoprazole CAD - Continue ASA - Continue atorvastatin 80 mg daily Abdominal cramping - continue dicyclomine 10 TID FEN/GI/DVT: IVF: None Electrolytes: Monitor and replace per protocols Diet: Renal GI PPX: Yes DVT Prophylaxis: Subcutaneous heparin DISPOSITION: Spec Recs. Will follow with nephro for a possible discharge either today or tomorrow. Appreciated nephrology recommendations. Patient has diuresed a total of -5.6 L since admission. Will likely anticipate decrease in Lasix dosing. However will defer to nephrology. Anticipate dischargewithin 24 hours pending continued clinical stability. I have personally seen the patient and performed a physical exam. I have discussed the patient withthe resident and attending. I have reviewed the note and agree with the assessment and plan as documented above with my changes documented in blue font. Loco Harper MD 08/24/2020 1:25 PM Attending Supervising Physician s Attestation Statement I saw and evaluated the patient on 08/24/2020. I discussed the findings and plans with resident physician and agree as documented in his note * Adrienne Esparza MD - 08/24/2020 8:28 AM EDT [facility] Progress Note Subjective/ 54 y.o. year old male who we are seeing in consultation for Volume Overload, Nephrotic Syndrome. NAEON AF, BP stable Breathing is ok on RA Making good urine Eating ok Swelling is improving 12 points ROS done and negative unless mentioned as above No change in PFSH All data labs/interval notes and overnight issues are reviewed Objective/ Vitals: 08/23/20 1013 08/23/20 1954 08/24/20 0615 08/24/20 0733 BP: 134/67 137/80 Pulse: 95 83 Resp: 17 18 Temp: 97.6 F (36.4 C) 98.2 F (36.8 C) TempSrc: Temporal Temporal SpO2: 96% 96% 92% Weight: (!) 368 lb 3.2 oz (167 kg) 24HR INTAKE/OUTPUT: Intake/Output Summary (Last 24 hours) at 08/24/2020 0829 Last data filed at 08/24/2020 0347 Gross per 24 hour Intake 710 ml Output 3270 ml Net -2560 ml General: NAD, Comfortable appearing, cooperative to history and physical exam. Head: AT NC Eyes: No icterus, no pallor Neck: Supple, no jvd Chest: B/L clear, no crackles, no accessory muscles usage. CV: RRR, no murmurs or rubs Abdomen: NT, ND, soft Extremities: 1+ B/l pitting peripheral edema, no tremor Neurological: Moving all four extremities, no focal neurological deficit Psychiatric: Normal insight and judgement, good recall Skin: No rashes on legs or arms, no bullae Data/ Recent Labs 08/22/20175708/23/20 0340 08/24/20 0323 WBC 8.5 8.2 13.5* HGB 13.5 13.9 14.0 HCT 39.2* 40.6 40.6 MCV 86.2 86.2 86.0 PLT 200 190 219 Recent Labs 08/22/20175708/23/20 0340 08/24/20 0323 NA 136 138 133* K 3.8 4.2 3.7 CL 105 105 99 CO2 28 26 27 GLUCOSE 179* 153* 143* MG 1.7 -- -- BUN 14 17 23* CREATININE 1.05 1.24 1.41* Assessment/ 1. Membranous nephropathy 2. Immunosuppression. 3. Nephrotic syndrome. 4. Morbid obesity BMI 49 5. B/L leg edema. 6. GERD Plan/ -creatinine is more today, having good output, BP is stable - volume status hypervolemic but improving - responding to the diuresis and the sequential blockade treatment - will stop the metolazone for now as is having cramping - will consider changing the furosemide from IV to po in the morning if the volume status and the edema continued to improve - C/w prednisone 60mg qday for now (month 3/6 of lashell) for membranous nephropathy. - is complaining of difficulty with sleep at night and will order diazepam 5 mg at hs x 1 - weight is lower today - replace the electrolytes PRN - keep I<O 1.5-2.0 liters/day - will follow/call with questions Patient is independently assessed and examined and all data and notes are reviewed.I reviewed the ESCROW MANAGER notes and findings I agree with his assessment and plan. * Cydney Farrar - 08/24/2020 8:18 AM EDT Nutrition rescreen completed. Patient assigned a level 1. * Harsha Oliveros RCP - 08/23/2020 10:20 AM EDT [facility] Progress Note As part of the Respiratory Assessment Program (RAP), the following Respiratory Therapist evaluationhas been completed, including a chart review and clinical/physical assessment. Respiratory Therapist RAP Evaluation Guideline Points 0 1 2 3 4 Points Strongly Consider History Factor No Pulmonary conditions Stable Pulmonary condition(s) Surgery or Intervention that may impact Pulmonary system (at risk) Surgery or Intervention that is impacting Pulmonary system Active Exacerbation of Pulmonary Condition 1 Respiratory Pattern Regular, RR= 12-18 ARMENTA or Increased RR= 19-24 Irregular, or RR= 25-30 SOB, talk in short sentences, or RR= 31-35 Severe SOB, accessory muscle use, one word answers, or RR>35 1 Aerosol Med(s), High Flow O2 Breath Sounds Clear Diminished in 1 lobe Diminished in ? 2 lobes Adventitious breath sounds Coarse crackles, Wheezes, or Diminished in >2 lobes 2 Aerosol Med(s), Bronchial Hygiene, Hyperinflation Cough & Sputum Strong cough, no secretion retention or production Weak cough, no secretion retention or production Weak cough, w/ production (less often than Q2hr), or secretion retention No cough, w/ secretion retention or production (less often than Q2hr) Significant secretion production (more often than Q2hr) or mucus plug 0 Aerosol Med(s), Bronchial Hygiene, Hyperinflation Level of Activity Ambulatory Ambulatory with Assist Up in chair or edge of bed (dangle) Non-ambulatory, bedridden with active ROM Completely paralyzed or without active ROM 1 Triage 5 0-2 Triage 4 3-5 Triage 3 6-10 Triage 2 11-14 Triage 1 ?15 Total 5 Triage Score = 4 TRIAGE SCORING SUGGESTED FREQUENCIES Aerosol Therapy Bronchial Hygiene Hyperinflation Triage Score Q4h & PRN 1 Q4hWA (QID) & PRN 2 TID & PRN 3 BID & PRN 4 PRN 5 Therapy(s) Indicated Yes/No Aerosol Medication yes Hyperinflation Bronchial Hygiene High Flow Oxygen RT to enter/modify frequency of treatment order in EMR/EHR to match this RAP evaluation. Based on this RAP evaluation the following therapy is being initiated: duoneb At the following frequency: BID Comments: Thank you for involving [facility] in the care of this patient, * Mikey Bauman MD - 08/23/2020 9:58 AM EDT Daily standing weights not charted. Will check with staff. * Frankie Rodriguez MD - 08/23/2020 8:20 AM EDT Images from the original note were not included. Medical Teaching Service Progress Note Patient: Sophie Hicks : 1965 Acct: [id number] PCP: Naima Rodriguez MD Admitting Physician: Naima Rodriguez MD Admission Date: 08/22/2020 Admitting Diagnosis: Nephrotic syndrome [N04.9] Unit/Bed: 149/1492 Hospital Day: 1 Code Status: Full Code Subjective: Overnight events: NAEON. Patient was seen resting comfortably in bed. He states that he continues to have some cramping of his legs and pain in his back. He states that he had similar pain last night and the medication he received helped. Patient denied having any CP, SOB, n/v/d, fevers, chills and night sweats. Objective: Vitals: 08/22/20 1315 08/22/20 1848 08/22/20 2031 08/23/20 0753 BP: (!) 149/95 (!) 133/91 125/75 Pulse: 91 95 79 Resp: 20 18 16 Temp: 98.4 F (36.9 C) 97.2 F (36.2 C) 97.5 F (36.4 C) TempSrc: Temporal Temporal Temporal SpO2: 98% 95% 95% 94% Intake/Output Summary (Last 24 hours) at 08/23/2020 0820 Last data filed at 08/23/2020 0342 Gross per 24 hour Intake Output 3050 ml Net -3050 ml Physical Exam Vitals signs and nursing note reviewed. Constitutional: General: He is not in acute distress. Appearance: Normal appearance. He is obese. He is not ill-appearing, toxic- appearing or diaphoretic. HENT: Head: Normocephalic and atraumatic. Right Ear: External ear normal. Left Ear: External ear normal. Nose: Nose normal. Mouth/Throat: Mouth: Mucous membranes are moist. Eyes: General: Right eye: No discharge. Left eye: No discharge. Conjunctiva/sclera: Conjunctivae normal. Neck: Musculoskeletal: Normal range of motion and neck supple. Cardiovascular: Rate and Rhythm: Normal rate and regular rhythm. Pulses: Normal pulses. Heart sounds: Normal heart sounds. No murmur. No friction rub. No gallop. Pulmonary: Effort: Pulmonary effort is normal. No respiratory distress. Breath sounds: Wheezing (minimal) present. No rhonchi. Abdominal: General: Abdomen is flat. Bowel sounds are normal. There is no distension. Palpations: Abdomen is soft. Tenderness: There is no abdominal tenderness. There is no guarding or rebound. Musculoskeletal: Normal range of motion. Right lower leg: Edema present. Left lower leg: Edema present. Skin: General: Skin is warm and dry. Neurological: General: No focal deficit present. Mental Status: He is alert and oriented to person, place, and time. Diet: DIET RENAL; Medications: sodium chloride flush 5-40 mL Intravenous 2 times per day furosemide 80 mg Intravenous BID ipratropium-albuterol 1 ampule Inhalation Q4H WA metOLazone 2.5 mg Oral QAM aspirin 81 mg Oral Daily atorvastatin 80 mg Oral Nightly [Held by provider] bumetanide 1 mg Oral BID [Held by provider] cyclophosphamide 150 mg Oral Q6H pantoprazole 40 mg Oral BID sulfamethoxazole-trimethoprim 1 tablet Oral Once per day on Thu predniSONE 60 mg Oral Daily traZODone 50 mg Oral Nightly melatonin 6 mg Oral Nightly Continuous Infusions: sodium chloride PRN Meds:sodium chloride flush, sodium chloride, promethazine OR ondansetron, acetaminophen OR acetaminophen, baclofen, dicyclomine Labs: CBC: Recent Labs 08/22/20 1758 08/23/20 0340 WBC 8.5 8.2 RBC 4.54 4.72 HGB 13.5 13.9 HCT 39.2* 40.6 MCV 86.2 86.2 RDW 15.3* 15.0* PLT 200 190 BMP: Recent Labs 08/22/20 1758 08/23/20 0340 NA 136 138 K 3.8 4.2 CL 105 105 CO2 28 26 BUN 14 17 CREATININE 1.05 1.24 GLUCOSE 179* 153* CALCIUM 9.1 9.1 ANIONGAP 4 7 LIVER PROFILE:No results for input(s): AST, ALT, BILITOT, ALKPHOS, LABALBU, PROT in the last 72 hours. PT/INR:No results for input(s): PROTIME, INR in the last 72 hours. CARDIAC ENZYMES: No results for input(s): TROPONINI in the last 72 hours. Urine microalbumin: >1,140.0 : Urine Cr: 96.7 Urine protein: 322 Procalcitonin: Lab Results Component Value Date PROCAL 0.10 04/29/2020 Glucose: No results for input(s): POCGLU in the last 72 hours. ASSESSMENT/PLAN: Active Hospital Problems Diagnosis Mixed hyperlipidemia [E78.2] Hx: nephrotic syndrome [Z87.441] Nephrotic syndrome [N04.9] Abdominal pain [R10.9] CAD (coronary artery disease) [I25.10] Insomnia [G47.00] ASSESSMENT/PLAN: Fluid overload 2/2 nephrotic syndrome - f/u nephro - continue IV lasix 80 BID - continue Metolazone 2.5mg QAM PO (30-60 mg prior to lasix) - continue Prednisone 60 mg daily - f/u urine protien/creatinine ratio - as above - continue TMP-SMX 800mg-160 mg 2x weekly double strenght MWF - supplemental O2 as needed - continue duoneb q4h PRN - HOLD cyclophosphamide 50 mg every 6 hour daily - HOLD bumetanide 1 mg BID - Strict I/O, Daily weight - Daily CBC/CMP Chronic back pain - STOP gabapentin 300 mg TID - STOP norco 325-5mg qhs PRN - Continue baclofen 5 mg tid prn - Tylenol 1g q8h GERD - continue Pantoprazole CAD - Continue ASA - Continue atorvastatin 80 mg daily Abdominal cramping - continue dicyclomine 10 TID FEN/GI/DVT: IVF: None Electrolytes: Monitor and replace per protocols Diet: Renal GI PPX: Yes DVT Prophylaxis: Subcutaneous heparin DISPOSITION: Spec Recs. Patient clinically improving. 3L out over last 24 hours, however no standing weights. Follow up nephrology recs and defer diuresis to them. I have personally seen the patient and performed a physical exam. I have discussed the patient withthe resident and attending. I have reviewed the note and agree with the assessment and plan as documented above with my changes documented in blue font. Loco Harper MD 08/23/2020 10:20 AM Attending Supervising Physician s Attestation Statement I saw and evaluated the patient on 08/23/2020. I discussed the findings and plans with resident physician and agree as documented in his note documented in this encounterSUMMA Work Phone: [phone]) 761-725205-16-2021 Hospital Discharge instructions* Discharge Instr - Lab* Stephanie Jackson LPN - 08/26/2020 1:31 PM EDT Your physician has ordered skilled home care services for you. Your home care will be provided by: [facility] [phone] * Additional Instructions* Randolph Rodriguez MD - 08/26/2020 DISCHARGE Instructions: - Please follow up with your kidney doctor regarding your fdc medications We are holding your medication Cyclophosphamide, Bumetanide and Metolazone until you see your kidney doctor - Please start taking Demadex 20 mg twice a day - Continue taking Bactrim (Antibiotic) as prescribed - Please continue Prednisone (steroids) as prescribed - Please follow up with PCP and Nephrology GENERAL SIGNS AND SYMPTOMS GREEN ZONE: All Clear- Your Symptoms Are Under Control No recurrence of symptoms that led to hospitalization Able to do usual activities No fever No chest pain No shortness of breath This Means You Should: Continue taking your medications as prescribed Continue activity as tolerated Keep all doctor appointments YELLOW ZONE: Caution as Your Health may be Worsening Recurrence of symptoms that led to hospitalization Fever of 100 degrees or higher Increased fatigue or restlessness Intolerant side-effects of medications Uneasy feeling or that something is wrong This Means You Should: Call your doctor for further instructions Naima Rodriguez MD [address] [facility] [id number] RED ZONE: Medical Alert Severe or unrelieved shortness of breath at rest Unrelieved chest pain Confusion or you can't think clearly This Means You Should Call 911 Immediately documented in this encounterSUMMA Work Phone: [phone] 795-202505-04-2021 Hospital Discharge instructions* Instructions* Radha Luna RN - 08/14/2020 Please bring your [facility] Information folder on the day of surgery. Please louisa the last dose taken (date and time ) on your Daily Medications List provided in your After Visit Summary. Please bring a photo ID and insurance information Do NOT take the following medications on the morning of surgery: BUMETANIDE, DICYCLOMINE, LISINOPRIL, SUCRALFATE TAKE the following medications the morning of your surgery: INHALER IF NEEDED, PANTOPRAZOLE, PREDNISONE, BACLOFEN IF NEEDED, SULFAMETHOXAZOLE . You may take Tylenol (Acetaminophen) if needed for pain. No Motrin, Ibuprofen, or Advil 24 hours prior to surgery, or longer if instructed by your surgeon. No Aleve or Naprosyn 3 days prior to surgery, or longer if instructed by your surgeon. If you are on ASPIRIN: CONTINUE ASPIRIN Additional instructions: SHOWER/BATHE WITH ANTIBACTERIAL SOAP DAY OF SURGERY You will receive a reminder call the day before surgery with your Same Day Surgery arrival time. If you have specific questions, please call your surgeon. ARRIVE AT 2:30 PM ENTER BUILDING AT MAIN ENTRANCE, TAKE THE H ELEVATOR TO THE FIRST FLOOR, TURN LEFT OFF THE ELEVATOR AND GO TO THE SAME DAY SURGERY REGISTRATION DESK * Attachments The following attachments cannot be sent through Care Everywhere. * Cystoscopy: Pre-op (Honduran) * Cystoscopy: Post-op (Honduran) * Bladder Biopsy (Honduran) documented in this encounterSUMMA Work Phone: [phone]) 828-530805-04-2021 History of Present illness Narrative* Radha Luna RN - 08/14/2020 12:30 PM EDT Spoke with Tessy at Dr Whittaker office regarding Urine Culture order 08/13/20 placed. Pt had urine culture done on 08/08/20. Asked if pt needed urine culture ordered to be done in pre-testing. No need for second urine culture per Dr Whittaker office. documented in this encounterSXerox Work Phone: Evaluation note* Diagnosis Strain of lumbar region, initial encounter- Primary documented in this encounter [facility] Work Phone: Evaluation note* Diagnosis Elective surgery Unspecified elective surgery for purposes other than remedying health states documented in this encounter [facility] Work Phone: Evaluation note* Diagnosis Leg swelling- Primary Swelling of limb Right leg pain Pain in limb documented in this encounter [facility] Work Phone: Evaluation note* Diagnosis Nephrotic syndrome Nephrotic syndrome with unspecified pathological lesion in kidney CAD (coronary artery disease) Coronary atherosclerosis of unspecified type of vessel, [place] or graft Insomnia Insomnia, unspecified Hx: nephrotic syndrome Personal history of nephrotic syndrome Mixed hyperlipidemia Abdominal pain Abdominal pain, unspecified site documented in this encounter [facility] Work Phone: Evaluation note* Diagnosis Dyspnea and respiratory abnormalities- Primary Other dyspnea and respiratory abnormality Bilateral low back pain with bilateral sciatica, unspecified chronicity Difficulty walking Difficulty in walking Frequent falls Personal history of fall Degenerative disc disease, lumbar Degeneration of lumbar or lumbosacral intervertebral disc Degenerative disc disease, thoracic Degeneration of thoracic or thoracolumbar intervertebral disc Back muscle spasm Other symptoms referable to back Unable to ambulate Difficulty in walking CAD (coronary artery disease) Coronary atherosclerosis of unspecified type of vessel, [place] or graft Nephrotic syndrome Nephrotic syndrome with unspecified pathological lesion in kidney GERD (gastroesophageal reflux disease) Esophageal reflux MEGAN (acute kidney injury) (HCC) Acute kidney failure, unspecified Chronic back pain Backache, unspecified Hyponatremia Hyposmolality and/or hyponatremia Leukocytosis Leukocytosis, unspecified documented in this encounter [facility] Work Phone: [phone] note* Diagnosis Intractable abdominal pain- Primary Abdominal pain, unspecified site Edema of both legs Edema Fluid overload Other fluid overload Multiple joint pain Pain in joint, multiple sites CAD (coronary artery disease) Coronary atherosclerosis of unspecified type of vessel, [place] or graft Benign essential HTN Essential hypertension, benign Morbid obesity (HCC) Morbid obesity COVID-19 Nephrotic syndrome Nephrotic syndrome with unspecified pathological lesion in kidney Bilateral lower extremity edema Edema Degenerative disc disease, thoracic Degeneration of thoracic or thoracolumbar intervertebral disc Degenerative disc disease, lumbar Degeneration of lumbar or lumbosacral intervertebral disc Chronic back pain Backache, unspecified GERD (gastroesophageal reflux disease) Esophageal reflux Sleep apnea Unspecified sleep apnea Morbid obesity with body mass index (BMI) of 45.0 to 49.9 in adult (HCC) Mixed hyperlipidemia Diffuse membranous glomerulonephritis Nephritis and nephropathy, not specified as acute or chronic, with lesion of membranous glomerulonephritis Peripheral polyneuropathy Unspecified hereditary and idiopathic peripheral neuropathy documented in this encounter [facility] Work Phone: [phone] note* Diagnosis Chronic bilateral low back pain with bilateral sciatica- Primary Spasm of muscle documented in this encounter [facility] Work Phone: Evaluation note* Diagnosis Urinary retention- Primary Retention of urine, unspecified documented in this encounter [facility] Work Phone: Evaluation note* Diagnosis Retention of urine- Primary Retention of urine, unspecified documented in this encounter [facility] Work Phone: [phone] note* Diagnosis Bladder spasm- Primary Other specified disorders of bladder Urinary retention Retention of urine, unspecified Hematuria, unspecified type documented in this encounter [facility] Work Phone: [phone] note* Diagnosis Pre-op testing- Primary Preoperative examination, unspecified documented in this encounter [facility] Work Phone: [phone] note* Diagnosis Lumbar stenosis with neurogenic claudication Spinal stenosis, lumbar region, with neurogenic claudication History of fusion of cervical spine Arthrodesis status Spondylolisthesis of lumbar region Acquired spondylolisthesis documented in this encounter [facility] Work Phone: Evaluation note* Diagnosis Leg swelling- Primary Swelling of limb documented in this encounter [facility] Work Phone: Evaluation note* Diagnosis Hyperglycemia- Primary Other abnormal glucose Chest pain, unspecified type Epigastric pain Abdominal pain, epigastric Leg cramping documented in this encounter [facility] Work Phone: [phone] note* Diagnosis Lightheadedness- Primary Dizziness and giddiness Hyperglycemia due to diabetes mellitus (HCC) documented in this encounter [facility] Work Phone: Evaluation note* Diagnosis Abdominal pain, epigastric- Primary documented in this encounter [facility] Work Phone: Evaluation note* Diagnosis Pain in both knees, unspecified chronicity documented in this encounter [facility] Work Phone: Evaluation note* Diagnosis Fall, initial encounter- Primary Right hip pain Pain in joint, pelvic region and thigh documented in this encounter [facility] Work Phone: [phone] note* Diagnosis Knee pain, unspecified chronicity, unspecified laterality- Primary documented in this encounter [facility] Work Phone: Evaluation note* Diagnosis Pre-operative exam Preoperative examination, unspecified documented in this encounter [facility] Work Phone: Evaluation note* Diagnosis Post-op pain- Primary Other acute postoperative pain Morbid obesity (HCC) Morbid obesity documented in this encounter [facility] Work Phone: Evaluation note* Diagnosis Post-operative pain- Primary Other acute postoperative pain Elevated d-dimer Abnormal coagulation profile Abdominal pain Abdominal pain, unspecified site documented in this encounter [facility] Work Phone: Evaluation note* Diagnosis Hyperlipidemia, unspecified hyperlipidemia type- Primary GERD without esophagitis Esophageal reflux Hypothyroidism, unspecified type Morbid obesity with BMI of 40.0-44.9, adult (HCC) Deficiency of multiple nutrient elements Other nutritional deficiency Yeast dermatitis documented in this encounter [facility]* Diagnosis Epigastric pain- Primary Abdominal pain, epigastric [facility] Diagnosis Abdominal pain, epigastric- Primary Hematemesis with nausea [facility]* Diagnosis Abdominal pain, epigastric- Primary Abdominal pain, epigastric [facility]* Diagnosis Syncope, unspecified syncope type- Primary [facility]* Diagnosis Gastroesophageal reflux disease without esophagitis- Primary Esophageal reflux Generalized abdominal pain Abdominal pain, generalized [facility]* Diagnosis Generalized abdominal pain- Primary Abdominal pain, generalized BRBPR (bright red blood per rectum) Hemorrhage of rectum and anus Hx of gastric bypass [facility] this encounter [facility]* Diagnosis Hyperlipidemia associated with type 2 diabetes mellitus ([facility]) ([facility])- Primary Essential hypertension Unspecified essential hypertension Deficiency of multiple nutrient elements Other nutritional deficiency Class 2 severe obesity due to excess calories with serious comorbidity and body mass index (BMI) of 38.0 to 38.9 in adult ([facility]) Vitamin D deficiency documented in this encounter [facility]* Diagnosis Hyperlipidemia associated with type 2 diabetes mellitus ([facility]) ([facility])- Primary Essential hypertension Unspecified essential hypertension Deficiency of multiple nutrient elements Other nutritional deficiency Class 2 severe obesity due to excess calories with serious comorbidity and body mass index (BMI) of 38.0 to 38.9 in adult ([facility]) Vitamin D deficiency documented in this encounter [facility] note* Diagnosis Abdominal pannus- Primary documented in this encounter [facility]* Diagnosis Gastroesophageal reflux disease without esophagitis Esophageal reflux Generalized abdominal pain Abdominal pain, generalized documented in this encounter [facility]* Diagnosis Benign prostatic hyperplasia with post-void dribbling- Primary Anxiety due to invasive procedure documented in this encounter [facility]* Diagnosis GERD without esophagitis- Primary Esophageal reflux Hyperlipidemia associated with type 2 diabetes mellitus ([facility]) ([facility]) BMI 36.0-36.9,adult Class 2 severe obesity due to excess calories with serious comorbidity and body mass index (BMI) of 38.0 to 38.9 in adult ([facility]) documented in this encounter [facility] note* Diagnosis Benign prostatic hyperplasia with post-void dribbling- Primary [facility]* Diagnosis Urinary tract infection with hematuria, site unspecified- Primary documented in this encounter [facility]* Diagnosis Hematuria- Primary Hematuria, unspecified Hematuria Hematuria, unspecified [facility]* Diagnosis Acute cystitis with hematuria- Primary [facility] Diagnosis Gross hematuria- Primary Urethral pain Other symptoms involving urinary system Benign prostatic hyperplasia with post-void dribbling [facility]* Diagnosis Benign prostatic hyperplasia with post-void dribbling- Primary History of gross hematuria Localized adiposity documented in this encounter [facility] note* Diagnosis Gross hematuria Localized adiposity documented in this encounter [facility] note* Diagnosis Postop check- Primary Follow-up examination, following unspecified surgery documented in this encounter [facility] note* Diagnosis Abdominal pannus- Primary Abdominal pannus Pannus, abdominal documented in this encounter [facility] note* Diagnosis Pannus, abdominal documented in this encounter [facility] note* Diagnosis Postop check- Primary Follow-up examination, following unspecified surgery documented in this encounter [facility] note* Diagnosis Gastroesophageal reflux disease without esophagitis Esophageal reflux Generalized abdominal pain Abdominal pain, generalized documented in this encounter [facility] note* Diagnosis Near syncope- Primary Status post panniculectomy Generalized abdominal pain Abdominal pain, generalized Constipation, unspecified constipation type Lightheadedness Dizziness and giddiness Near syncope Pre-syncope Syncope and collapse documented in this encounter [facility] note* Diagnosis Postoperative state- Primary Other postprocedural status documented in this encounter [facility] note* Diagnosis Benign prostatic hyperplasia with post-void dribbling- Primary Gross hematuria documented in this encounter [facility] note* Diagnosis Pain in right shoulder documented in this encounter [facility] note* Diagnosis Gastroesophageal reflux disease without esophagitis Esophageal reflux Generalized abdominal pain Abdominal pain, generalized documented in this encounter [facility] note* Diagnosis Flank pain- Primary Abdominal pain, unspecified site Musculoskeletal pain Unspecified myalgia and myositis Cellulitis, unspecified cellulitis site documented in this encounter [facility] note* Diagnosis Obstructive sleep apnea syndrome Obstructive sleep apnea (adult) (pediatric) documented in this encounter [facility] note* Diagnosis COVID-19- Primary documented in this encounter [facility] note* Diagnosis Pain in right hip documented in this encounter [facility] note* Diagnosis Primary osteoarthritis of right hip- Primary documented in this encounter [facility] note* Diagnosis Right hip pain- Primary Pain in joint, pelvic region and thigh Primary osteoarthritis of right hip documented in this encounter [facility] note* Diagnosis Right hip pain Pain in joint, pelvic region and thigh [facility] Diagnosis Preop cardiovascular exam- Primary Pre-operative cardiovascular examination Right hip pain Pain in joint, pelvic region and thigh TIA (transient ischemic attack) Unspecified transient cerebral ischemia Congestive heart failure, unspecified HF chronicity, unspecified heart failure type (HCC) Benign essential HTN Coronary artery disease involving [place] coronary artery of [place] heart without angina pectoris Mixed hyperlipidemia documented in this encounter [facility] note* Diagnosis Right hip pain Pain in joint, pelvic region and thigh Unilateral primary osteoarthritis, right hip documented in this encounter [facility] note* Diagnosis Pain in right shoulder- Primary Pain in right shoulder [facility] Diagnosis Arthritis of right hip- Primary documented [facility] Diagnosis Laceration of left lower leg, initial encounter- Primary [facility] Diagnosis Pain and swelling of left lower leg- Primary Pain and swelling of left lower leg Laceration of left lower extremity, initial encounter [facility] Diagnosis Pain in right hip- Primary Pain in right hip [facility] Diagnosis Low back pain, unspecified back pain laterality, unspecified chronicity, unspecified whether sciatica present [facility] Diagnosis Memory loss- Primary Visual hallucinations Psychophysical visual disturbances Tremor of both hands Depression with anxiety Dysthymic disorder Vitamin D deficiency [facility] Memory loss- Primary Visual hallucinations Psychophysical visual disturbances Tremor of both hands Depression with anxiety Dysthymic disorder Vitamin D deficiency S/P total right hip arthroplasty- Primary [facility] Diagnosis S/P total right hip arthroplasty- Primary Primary osteoarthritis of right hip Trochanteric bursitis of right hip [facility] S/P total right hip arthroplasty [facility] Diagnosis Acute exacerbation of chronic low back pain- Primary [facility] Memory loss [facility] Diagnosis Lumbago with sciatica, right side [facility] Diagnosis Gastroesophageal reflux disease without esophagitis Esophageal reflux Generalized abdominal pain Abdominal pain, generalized documented in this encounter [facility] note* Diagnosis S/P total right hip arthroplasty- Primary Primary osteoarthritis of right hip Right hip pain Pain in joint, pelvic region and thigh Iliopsoas bursitis of right hip documented in this encounter [facility] note* Diagnosis Chronic hip pain after total replacement of right hip joint- Primary [facility] Diagnosis S/P total right hip arthroplasty- Primary Primary osteoarthritis of right hip Right hip pain Pain in joint, pelvic region and thigh Iliopsoas bursitis of right hip documented in this encounter [facility] note* Diagnosis Mild dementia with other behavioral disturbance, unspecified dementia type (HCC)- Primary Bilateral hearing loss, unspecified hearing loss type documented in this encounter [facility] note* Diagnosis Lumbago with sciatica, right side- Primary Lumbago with sciatica, right side [facility] Diagnosis Right hip pain- Primary Pain in joint, pelvic region and thigh Chronic prescription opiate use Chronic hip pain after total replacement of right hip joint documented in this encounter [facility] note* Diagnosis Chronic prescription opiate use Right hip pain Pain in joint, pelvic region and thigh documented in this encounter [facility] note* Diagnosis Right hip pain- Primary Pain in joint, pelvic region and thigh S/P total right hip arthroplasty documented in this encounter [facility] note* Diagnosis Lateral pain of right hip- Primary Status post total replacement of right hip Chronic prescription opiate use Lumbar radiculopathy Thoracic or lumbosacral neuritis or radiculitis, unspecified documented in this encounter [facility] note* Diagnosis Chronic prescription opiate use- Primary Encounter for therapeutic drug monitoring Chronic bilateral low back pain, unspecified whether sciatica present documented in this encounter [facility] note* Diagnosis S/P total right hip arthroplasty- Primary Primary osteoarthritis of right hip Trochanteric bursitis of right hip Low back pain, unspecified back pain laterality, unspecified chronicity, unspecified whether sciatica present documented in this encounter [facility] note* Diagnosis S/P total right hip arthroplasty Primary osteoarthritis of right hip [facility] Diagnosis Chronic right hip pain- Primary [facility] Instructions* Casi, Eddie, DO - 08/03/2020 Please take [id number] Tylenol and/or ibuprofen as needed for additional pain relief. Please obtain Salonpas lidocaine patches from your local pharmacy or drugstore. * Attachments The following attachments cannot be sent through Care Everywhere. * Back Pain: Relief: General Info (Honduran) [facility] Discharge instructions* Instructions* Steven Mccrary MD - 10/26/2020 Images from the original note were not included. Cystoscopy: What to Expect at Home Your Recovery A cystoscopy is a procedure that lets a doctor look inside of the bladder and the urethra. The urethra is the tube that carries urine from the bladder to outside the body. The doctor uses a thin, lighted tool called a cystoscope. Your bladder is filled with fluid. This stretches the bladder so thatyour doctor can look closely at the inside of your bladder. After the cystoscopy, your urethra may be sore at first, and it may burn when you urinate for the first few days after the procedure. You may feel the need to urinate more often, and your urine may be pink. These symptoms should get better in 1 or 2 days. You will probably be able to go back to most of your usual activities in 1 or 2 days. This care sheet gives you a general idea about how long it will take for you to recover. But each person recovers at a different pace. Follow the steps below to get better as quickly as possible. How can you care for yourself at home? Activity Rest when you feel tired. Getting enough sleep will help you recover. Try to walk each day. Start by walking a little more than you did the day before. Bit by bit, increase the amount you walk. Walking boosts blood flow and helps prevent pneumonia and constipation. Avoid strenuous activities, such as bicycle riding, jogging, weight lifting, or aerobic exercise, until your doctor says it is okay. Ask your doctor when you can drive again. Most people are able to return to work within 1 or 2 days after the procedure. You may shower and take baths as usual. Ask your doctor when it is okay for you to have sex. Diet You can eat your normal diet. If your stomach is upset, try bland, low-fat foods like plain rice, broiled chicken, toast, and yogurt. Drink plenty of fluids (unless your doctor tells you not to). Medicines Take pain medicines exactly as directed. ? If the doctor gave you a prescription medicine for pain, take it as prescribed. ? If you are not taking a prescription pain medicine, ask your doctor if you can take an yher-fde-xgtjzdo medicine. If you think your pain medicine is making you sick to your stomach: ? Take your medicine after meals (unless your doctor has told you not to). ? Ask your doctor for a different pain medicine. If your doctor prescribed antibiotics, take them as directed. Do not stop taking them just because you feel better. You need to take the full course of antibiotics. Follow-up care is a plaza part of your treatment and safety. Be sure to make and go to all appointments, and call your doctor if you are having problems. It's also a good idea to know your test resultsand keep a list of the medicines you take. When should you call for help? Call 911 anytime you think you may need emergency care. For example, call if: You passed out (lost consciousness). You have severe trouble breathing. You have sudden chest pain and shortness of breath, or you cough up blood. You have severe belly pain. Call your doctor now or seek immediate medical care if: You are sick to your stomach or cannot keep fluids down. Your urine is still red or you see blood clots after you have urinated several times. You have trouble passing urine or stool, especially if you have pain or swelling in your lower belly. You have signs of a blood clot, such as: ? Pain in your calf, back of the knee, thigh, or groin. ? Redness and swelling in your leg or groin. You develop a fever or severe chills. You have pain in your back just below your rib cage. This is called flank pain. Watch closely for changes in your health, and be sure to contact your doctor if: You have pain or burning when you urinate. A burning feeling is normal for a day or two after the test, but call if it does not get better. You have a frequent urge to urinate but can pass only small amounts of urine. Your urine is pink, red, or cloudy, or smells bad. It is normal for the urine to have a pinkish color for a few days after the test, but call if it does not get better. Where can you learn more? Go to [email or web address] and sign in to your [employer] account. Enter C842 in the Search Health Information box to learn more about Cystoscopy: What to Expect at Home. If you do not have an account, please click on the Sign Up Now link. Current as of: May 23, 2020 Content Version: 12.9 [employer]. Care instructions adapted under license by [employer]. If you have questions about a medical condition or this instruction, always ask your healthcare professional. [employer] disclaims any warranty or liability for your use of this information. documented in this [employer] Work Phone: Hospital Discharge instructions* Attachments The following attachments cannot be sent through Care Everywhere. * Urinary Retention (Honduran) documented in this [employer] Work Phone: Hospital Discharge instructions* Attachments The following attachments cannot be sent through Care Everywhere. * Urinary Retention (Honduran) * Hematuria (Honduran) documented in this [employer] Work Phone: Hospital Discharge instructions* Instructions* Brijesh Luong MD - 02/09/2021 Please follow up with your primary doctor regarding your chest pain, abdominal pain, leg cramping. Please return for new or worsening symptoms. * Attachments The following attachments cannot be sent through Care Everywhere. * Hyperglycemia: General Info (Honduran) * Abdominal Pain (Honduran) * Chest Pain (Honduran) * Cramp: Muscle (Honduran) documented in this [employer] Work Phone: Hospital Discharge instructions* Attachments The following attachments cannot be sent through Care Everywhere. * Lightheadedness or Faintness (Honduran) * Diabetes: Type 2: General Info (Honduran) documented in this [facility] Work Phone: Hospital Discharge instructions* Instructions* Julianne Welch MD - 10/03/2021 Thank you for trusting us with your care today. You may use tylenol or ibuprofen as needed for pain. Please avoid taking Robaxin while driving or operating heavy machinery. Please make an appointment with your primary care doctor for reevalaution in 1-4 days. Please return to the emergency department for any new concerning or worsening symptoms. * Attachments The following attachments cannot be sent through Care Everywhere. * Joint Pain (Honduran) * RICE: General Info (Honduran) * Joint Injections: General Info (Honduran) documented in this [facility] Work Phone: spital Discharge instructions* Attachments The following attachments cannot be sent through Care Everywhere. * Syncope (Fainting) Discharge Instructions (Honduran) documented in this [facility] Discharge instructions* Attachments The following attachments cannot be sent through Care Everywhere. * Low Back Pain Discharge Instructions (Honduran) documented in this [facility] Discharge instructions* Attachments The following attachments cannot be sent through Care Everywhere. * Opioids for Short-Term Treatment of Pain (Honduran) [facility] Attachments The following attachments cannot be sent through Care Everywhere. * Hip Bursitis Exercises (Honduran) [facility] Consultation (Routine) - Pending Review Specialty Diagnoses / Procedures Referred By Kia roman Referred To Contact Plastic Surgery Diagnoses Yeast dermatitis Procedures IN OFFICE/OUTPATIENT [facility] 60-74 MINUTES Harsha Bell NP [address] [facility] [place] [address] Beto Gutierrez MD [address] [place] [address] [address] [place] [address] Referral ID Status Reason Start Date Expiration Date Visits Requested Visits Authorized [id number] Pending Review Specialty Services Required 12/01/2022 12/01/2023 1 1 [facility] for referral (narrative)* Consultation (Routine) - Pending Review Specialty Diagnoses / Procedures Referred By Kia roman Referred To Contact Gastroenterology Diagnoses Generalized abdominal pain BRBPR (bright red blood per rectum) Hx of gastric bypass Procedures IN OFFICE/OUTPATIENT NEW HIGH MDM 60 MINUTES Melissa Hall PA-C [address] [place] [address] [facility] [address] [place] [address] Referral ID Status Reason Start Date Expiration Date Visits Requested Visits Authorized [id number] Pending Review Specialty Services Required 04/09/2024 1 1 [facility] Consultation (Urgent) - Pending Review Specialty Diagnoses / Procedures Referred By Contac t Referred To Contact Urology Diagnoses Acute cystitis with hematuria Procedures IN OFFICE/OUTPATIENT NEW HIGH MDM 60 MINUTES Eduard Guan MD [address] [place] [address] [facility] Uro [address] [facility] [address] [place] [address] Referral ID Status Reason Start Date Expiration Date Visits Requested Visits Authorized [id number] Pending Review Specialty Services Required 08/21/2023 08/20/2024 1 1 [facility] N[facility]ative* Imaging (Routine) - Closed Specialty Diagnoses / Procedures Referred By Contac t Referred To Contact Radiology Diagnoses Right hip pain Procedures CT hip right wo IV contrast Antony Anderson MD [address] [facility] [address] [place] [id number] Phone: tel: fax: Referral ID Status Reason Start Date Expiration Date Visits Re quested Visits Authorized [id number] Closed 05/11/2024 05/11/2025 1 1 [facility] Narrative* Auth/Cert (Routine) Specialty Diagnoses / Procedures Referred By Contac t Referred To Contact Diagnoses Unilateral primary osteoarthritis, right hip Procedures IN ARTHRP ACETBLR/PROX FEM PROSTC AGRFT/ALGRFT RIGHT TOTAL HIP ARTHROPLASTY Antony Anderson MD [address] [facility] [address] [place] [address] Phone: tel: fax: [facility] [address] [place] [address] Phone: tel: Referral ID Status Reason Start Date Expiration Date Visits Re quested Visits Authorized [id number] 1 1 [facility] [employer] for visit Narrative* Imaging (Routine) - Closed Specialty Diagnoses / Procedures Referred By Contac t Referred To Contact Radiology Diagnoses Memory loss Procedures CT head wo IV contrast Saba Sam, PLANT OPERATOR CONTROL ROOM OPERATOR - FERRYBOAT OPERATOR HELPER [address] [facility] [address] [place] [address] Phone: tel: fax: Referral ID Status Reason Start Date Expiration Date Visits Re quested Visits Authorized [id number] Closed 07/19/2024 07/19/2025 1 1 [facility] [employer] for visit Narrative* Imaging (Routine) - Closed Specialty Diagnoses / Procedures Referred By Contac t Referred To Contact Radiology Diagnoses Lumbago with sciatica, right side Procedures MR lumbar spine wo contrast Wiliam Fernandez MD [address] [place] [address] Phone: tel: fax: [facility] Imaging [address] [facility] [address] [place] [address] Phone: tel: fax: Referral ID Status Reason Start Date Expiration Date Visits Re quested Visits Authorized [id number] Closed 08/02/2024 08/02/2025 1 1 [facility] [employer] for visit Narrative* Imaging (Routine) - Closed Specialty Diagnoses / Procedures Referred By Contac t Referred To Contact Radiology Diagnoses Chronic prescription opiate use Right hip pain Procedures MR hip right wo Elba Rojas DO [address] [place] [address] Phone: tel: fax: [facility] [address] [place] [address] Phone: tel: fax: Referral ID Status Reason Start Date Expiration Date Visits Re quested Visits Authorized [id number] Closed 11/23/2024 11/23/2025 1 1 [facility] Advance Directives No Advanced Directives Records FoundDocuments on File Type Date Recorded 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 Advance Directive(s) 12/14/2018 9:54 AM Documents on File Type Date Recorded 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 ACP-Advance Directive ACP-Power of Miter Grinder Operator Latest Code Status on File Code Status Date Activated Date Inactivated Comments Full Code 04/29/2020 3:13 PM 05/01/2020 6:12 PM Latest Code Status on File Code Status Date Activated Date Inactivated Comments Full Code 06/04/2020 2:18 PM Full Code 04/29/2020 3:13 PM 05/01/2020 6:12 PM Latest Code Status on File Code Status Date Activated Date Inactivated Comments Full Code 06/08/2020 11:43 PM Full Code 06/04/2020 2:18 PM 06/06/2020 4:39 PM Latest Code Status on File Code Status Date Activated Date Inactivated Comments Full Code 04/29/2020 3:13 PM Documents on File Type Date Recorded 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 ACP-Advance Directive ACP-Power of Miter Grinder Operator Latest Code Status on File Code Status Date Activated Date Inactivated Comments Full Code 07/23/2020 9:16 PM Full Code 06/08/2020 11:43 PM 06/12/2020 12:22 AM Full Code 06/04/2020 2:18 PM 06/06/2020 4:39 PM Full Code 04/29/2020 3:13 PM 05/01/2020 6:12 PM Latest Code Status on File Code Status Date Activated Date Inactivated Comments Full Code 07/23/2020 9:16 PM 07/25/2020 7:01 PM Full Code 06/08/2020 11:43 PM 06/12/2020 12:22 AM Latest Code Status on File Code Status Date Activated Date Inactivated Comments Full Code 08/22/2020 3:48 PM Full Code 07/23/2020 9:16 PM 07/25/2020 7:01 PM Latest Code Status on File Code Status Date Activated Date Inactivated Comments Full Code 09/11/2020 6:40 PM Full Code 08/22/2020 3:48 PM 08/26/2020 4:36 PM Latest Code Status on File Code Status Date Activated Date Inactivated Comments Full Code 09/29/2020 8:55 AM Full Code 09/11/2020 6:40 PM 09/13/2020 1:35 PM Latest Code Status on File Code Status Date Activated Date Inactivated Comments Full Code 09/29/2020 8:55 AM 10/01/2020 10:50 PM Latest Code Status on File Code Status Date Activated Date Inactivated Comments Full Code 10/26/2020 10:43 AM Full Code 09/29/2020 8:55 AM 10/01/2020 10:50 PM Latest Code Status on File Code Status Date Activated Date Inactivated Comments Full Code 10/26/2020 10:43 AM 10/26/2020 3:20 PM Latest Code Status on File Code Status Date Activated Date Inactivated Comments Full Code 11/19/2020 11:24 AM Full Code 11/19/2020 11:24 AM 11/19/2020 11:24 AM Full Code 10/26/2020 10:43 AM 10/26/2020 3:20 PM Latest Code Status on File Code Status Date Activated Date Inactivated Comments Full Code 11/19/2020 11:24 AM 11/19/2020 5:53 PM Latest Code Status on File Code Status Date Activated Date Inactivated Comments Full Code 01/24/2021 12:16 PM Full Code 11/19/2020 11:24 AM 11/19/2020 5:53 PM Latest Code Status on File Code Status Date Activated Date Inactivated Comments Full Code 01/24/2021 12:16 PM 01/24/2021 4:59 PM Latest Code Status on File Code Status Date Activated Date Inactivated Comments Full Code 01/24/2021 12:16 PM 01/24/2021 4:59 PM Full Code 11/19/2020 11:24 AM 11/19/2020 5:53 PM Full Code 11/19/2020 11:24 AM 11/19/2020 11:24 AM Full Code 10/26/2020 10:43 AM 10/26/2020 3:20 PM Full Code 09/29/2020 8:55 AM 10/01/2020 10:50 PM Latest Code Status on File Code Status Date Activated Date Inactivated Comments Full Code 12/04/2021 8:55 AM Full Code 12/03/2021 6:21 AM 12/03/2021 12:35 PM Full Code 01/24/2021 12:16 PM 01/24/2021 4:59 PM Latest Code Status on File Code Status Date Activated Date Inactivated Comments Full Code 12/04/2021 8:55 AM 12/05/2021 4:17 PM Latest Code Status on File Code Status Date Activated Date Inactivated Comments Full Code 12/18/2021 1:39 AM Full Code 12/04/2021 8:55 AM 12/05/2021 4:17 PM Latest Code Status on File Code Status Date Activated Date Inactivated Comments Full Code 12/18/2021 1:39 AM 12/19/2021 6:59 PM Latest Code Status on File Code Status Date Activated Date Inactivated Comments Full Code 02/28/2023 4:08 AM 03/03/2023 1:48 PM Latest Code Status on File Code Status Date Activated Date Inactivated Comments Full Code 02/28/2023 4:08 AM 03/03/2023 1:48 PM Latest Code Status on File Code Status Date Activated Date Inactivated Comments Full Code 08/18/2023 4:41 AM Code Status History Code Status Date Activated Date Inactivated Comments Full Code 02/28/2023 4:08 AM 03/03/2023 1:48 PM Latest Code Status on File Code Status Date Activated Date Inactivated Comments Full Code 08/18/2023 4:41 AM 08/20/2023 8:24 PM Latest Code Status on File Code Status Date Activated Date Inactivated Comments Full Code 08/18/2023 4:41 AM 08/20/2023 8:24 PM Code Status History Code Status Date Activated Date Inactivated Comments Full Code 02/28/2023 4:08 AM 03/03/2023 1:48 PM Latest Code Status on File Code Status Date Activated Date Inactivated Comments Full Code 09/16/2023 8:20 AM 09/16/2023 5:31 PM Code Status History Code Status Date Activated Date Inactivated Comments Full Code 08/18/2023 4:41 AM 08/20/2023 8:24 PM Full Code 02/28/2023 4:08 AM 03/03/2023 1:48 PM Latest Code Status on File Code Status Date Activated Date Inactivated Comments Full Code 09/16/2023 8:20 AM 09/16/2023 5:31 PM Code Status History Code Status Date Activated Date Inactivated Comments Full Code 08/18/2023 4:41 AM 08/20/2023 8:24 PM Full Code 02/28/2023 4:08 AM 03/03/2023 1:48 PM Latest Code Status on File Code Status Date Activated Date Inactivated Comments Full Code 09/23/2023 7:03 AM Code Status History Code Status Date Activated Date Inactivated Comments Full Code 09/16/2023 8:20 AM 09/16/2023 5:31 PM Full Code 08/18/2023 4:41 AM 08/20/2023 8:24 PM Full Code 02/28/2023 4:08 AM 03/03/2023 1:48 PM Latest Code Status on File Code Status Date Activated Date Inactivated Comments Full Code 09/23/2023 7:03 AM 09/25/2023 5:33 PM Code Status History Code Status Date Activated Date Inactivated Comments Full Code 09/16/2023 8:20 AM 09/16/2023 5:31 PM Full Code 08/18/2023 4:41 AM 08/20/2023 8:24 PM Full Code 02/28/2023 4:08 AM 03/03/2023 1:48 PM Latest Code Status on File Code Status Date Activated Date Inactivated Comments Full Code 09/23/2023 7:03 AM 09/25/2023 5:33 PM Date Activated Date Inactivated Comments 09/23/2023 7:03 AM 09/25/2023 5:33 PM Date Activated Date Inactivated Comments 09/16/2023 8:20 AM 09/16/2023 5:31 PM Date Activated Date Inactivated Comments 08/18/2023 4:41 AM 08/20/2023 8:24 PM Date Activated Date Inactivated Comments 02/28/2023 4:08 AM 03/03/2023 1:48 PM Date Activated Date Inactivated Comments 10/01/2023 3:00 PM 10/02/2023 5:16 PM Date Activated Date Inactivated Comments 09/23/2023 7:03 AM 09/25/2023 5:33 PM Date Activated Date Inactivated Comments 09/16/2023 8:20 AM 09/16/2023 5:31 PM Date Activated Date Inactivated Comments 08/18/2023 4:41 AM 08/20/2023 8:24 PM Date Activated Date Inactivated Comments 02/28/2023 4:08 AM 03/03/2023 1:48 PM Date Activated Date Inactivated Comments 10/01/2023 3:00 PM 10/02/2023 5:16 PM Date Activated Date Inactivated Comments 09/23/2023 7:03 AM 09/25/2023 5:33 PM Date Activated Date Inactivated Comments 09/16/2023 8:20 AM 09/16/2023 5:31 PM Date Activated Date Inactivated Comments 08/18/2023 4:41 AM 08/20/2023 8:24 PM Date Activated Date Inactivated Comments 02/28/2023 4:08 AM 03/03/2023 1:48 PM Date Activated Date Inactivated Comments 05/27/2024 5:46 PM 05/28/2024 1:05 PM Date Activated Date Inactivated Comments 05/27/2024 11:27 AM 05/27/2024 5:46 PM Date Activated Date Inactivated Comments 10/01/2023 3:00 PM 10/02/2023 5:16 PM Date Activated Date Inactivated Comments 09/23/2023 7:03 AM 09/25/2023 5:33 PM Date Activated Date Inactivated Comments 09/16/2023 8:20 AM 09/16/2023 5:31 PM Date Activated Date Inactivated Comments 05/27/2024 5:46 PM 05/28/2024 1:05 PM Date Activated Date Inactivated Comments 05/27/2024 11:27 AM 05/27/2024 5:46 PM Date Activated Date Inactivated Comments 10/01/2023 3:00 PM 10/02/2023 5:16 PM Date Activated Date Inactivated Comments 09/23/2023 7:03 AM 09/25/2023 5:33 PM Date Activated Date Inactivated Comments 09/16/2023 8:20 AM 09/16/2023 5:31 PM Date Activated Date Inactivated Comments 06/23/2024 7:12 PM 06/30/2024 2:37 PM Date Activated Date Inactivated Comments 05/27/2024 5:46 PM 05/28/2024 1:05 PM Date Activated Date Inactivated Comments 05/27/2024 11:27 AM 05/27/2024 5:46 PM Date Activated Date Inactivated Comments 10/01/2023 3:00 PM 10/02/2023 5:16 PM Date Activated Date Inactivated Comments 09/23/2023 7:03 AM 09/25/2023 5:33 PM Date Activated Date Inactivated Comments 06/23/2024 7:12 PM 06/30/2024 2:37 PM Date Activated Date Inactivated Comments 05/27/2024 5:46 PM 05/28/2024 1:05 PM Date Activated Date Inactivated Comments 05/27/2024 11:27 AM 05/27/2024 5:46 PM Date Activated Date Inactivated Comments 10/01/2023 3:00 PM 10/02/2023 5:16 PM Date Activated Date Inactivated Comments 09/23/2023 7:03 AM 09/25/2023 5:33 PM Discharge Instructions * Instructions* Yadiel Cavanaugh MD - 03/30/2020 Elevate your legs as much as possible. Wear knee-high pressure stockings [id number]. * Attachments The following attachments cannot be sent through Care Everywhere. * Edema: Leg and Ankle (Honduran) * Chest Pain (Honduran) documented in this encounter* Instructions* Julianne Welch MD - 04/21/2020 Thank you for trusting us with your care today. You may use tylenol or ibuprofen for fever and pain. Please make an appointment with your primary care doctor for reevalaution in 1-4 days. Please return to the emergency department for any new concerning or worsening symptoms. * Attachments The following attachments cannot be sent through Care Everywhere. * Viral Infections (Honduran) documented in this encounter* Instructions* Angela Jackson MD - 06/06/2020 GENERAL SIGNS AND SYMPTOMS GREEN ZONE: All Clear- Your Symptoms Are Under Control No recurrence of symptoms that led to hospitalization Able to do usual activities No fever No chest pain No shortness of breath This Means You Should: Continue taking your medications as prescribed Continue activity as tolerated Keep all doctor appointments YELLOW ZONE: Caution as Your Health may be Worsening Recurrence of symptoms that led to hospitalization Fever of 100 degrees or higher Increased fatigue or restlessness Intolerant side-effects of medications Uneasy feeling or that something is wrong This Means You Should: Call your doctor for further instructions Naima Rodriguez MD [address] [facility] [id number] RED ZONE: Medical Alert Severe or unrelieved shortness of breath at rest Unrelieved chest pain Confusion or you can't think clearly This Means You Should Call 911 Immediately * Attachments The following attachments cannot be sent through Care Everywhere. * Kidney Biopsy: Needle: Post-op (Honduran) documented in this encounter* Instructions* Dewayne Luna MD - 06/11/2020 Colonoscopy: What to expect at home ACTIVITY: DO NOT DRIVE, OPERATE MACHINERY, OR DRINK ANY ALCOHOL TODAY. Avoid making critical decisions, signing legal documents, or performing any activity that requires alertness for the rest of the day. You may be bloated or have gas pains since air was introduced into the colon for the procedure. Youmay need to pass the gas throughout the day. You may experience a small amount of rectal bleeding; this can be normal after your colonoscopy. Notify your physician if the bleeding is enough to saturate your clothes. Rest the remainder of the day. You may resume normal activity tomorrow. You may return to work tomorrow. DIET: You may resume a normal diet unless notified or recommended by your physician. You may be eager to eat a large meal after fasting, but it is a good idea to start with light mealsand ease into solid foods the first day. (*) If your stomach is upset, try clear liquids and bland, low-fat foods like plain toast or rice. Drink plenty of fluids for the first 24 hours (unless your physician states otherwise). MEDICATION: Resume your normal home medications unless notified or recommended by your physician. If you take blood thinners (such as Coumadin, Eliquis, Plavix, Aspirin, etc.) or anti-inflammatory medications (Advil, Motrin, Aleve, etc.), ask your physician when you may resume these medications. FOLLOW-UP APPOINTMENT: Follow up with or call your physician as needed. When to call for help: Call your doctor IMMEDIATELY or seek medical care if you experience: ? Severe pain or vomiting ? A large amount (filling the toilet) of maroon, bloody stools or tar-like stools ? Your belly is swollen and firm with severe pain ? A fever greater than 101 degrees ? Redness or swelling of arm from the IV site for more than 48 hours ? Sudden onset of chest pain or shortness of breath ? If you become extremely dizzy or pass out (lose consciousness) IF YOU ARE UNABLE TO REACH YOUR PHYSICIAN GO TO NEAREST EMERGENCY DEPARTMENT GENERAL SIGNS AND SYMPTOMS GREEN ZONE: All Clear- Your Symptoms Are Under Control No recurrence of symptoms that led to hospitalization Able to do usual activities No fever No chest pain No shortness of breath This Means You Should: Continue taking your medications as prescribed Continue activity as tolerated Keep all doctor appointments YELLOW ZONE: Caution as Your Health may be Worsening Recurrence of symptoms that led to hospitalization Fever of 100 degrees or higher Increased fatigue or restlessness Intolerant side-effects of medications Uneasy feeling or that something is wrong This Means You Should: Call your doctor for further instructions Naima Rodriguez MD [phone] RED ZONE: Medical Alert Severe or unrelieved shortness of breath at rest Unrelieved chest pain Confusion or you can't think clearly This Means You Should Call 911 Immediately documented in this encounter* Instructions* Beto Hills MD - 05/01/2020 You should remain in isolation/ quarantine at least 5 days after you leave the hospital (05/06/2020) Dr. Quiroga Learning About Coronavirus (COVID-19) What is coronavirus (COVID-19)? COVID-19 is a disease caused by a new type of coronavirus. This illness was first found in March2019. It has since spread worldwide. Coronaviruses are a large group of viruses. They cause the common cold. They also cause more serious illnesses like [place] respiratory syndrome (MERS) and severe acute respiratory syndrome (SARS). COVID-19 is caused by a novel coronavirus. That means it's a new type that has not been seen in people before. What are the symptoms? Coronavirus (COVID-19) symptoms may include: Fever. Cough. Trouble breathing. Chills or repeated shaking with chills. Muscle pain. Headache. Sore throat. New loss of taste or smell. Vomiting. Diarrhea. In severe cases, COVID-19 can cause pneumonia and make it hard to breathe without help from a machine. It can cause . How is it diagnosed? COVID-19 is diagnosed with a viral test. This may also be called a PCR test or antigen test. It looks for evidence of the virus in your breathing passages or lungs (respiratory system). The test is most often done on a sample from the nose, throat, or lungs. It's sometimes done on a sample of saliva. One way a sample is collected is by putting a long swab into the back of your nose. How is it treated? Mild cases of COVID-19 can be treated at home. Serious cases need treatment in the hospital. Treatment may include medicines to reduce symptoms, plus breathing support such as oxygen therapy or a ventilator. Some people may be placed on their belly to help their oxygen levels. Treatments that may help people who have COVID-19 include: Antiviral medicines. These medicines treat viral infections. Remdesivir is an example. Immune-based therapy. These medicines help the immune system fight COVID-19. One example is bamlanivimab. It's a monoclonal antibody. Blood thinners. These medicines help prevent blood clots. People with severe illness are at risk for blood clots. How can you protect yourself and others? The best way to protect yourself from getting sick is to: Avoid areas where there is an outbreak. Avoid contact with people who may be infected. Avoid crowds and try to stay at least 6 feet away from other people. Wash your hands often, especially after you cough or sneeze. Use soap and water, and scrub for at least 20 seconds. If soap and water aren't available, use an alcohol-based hand skoog operator. Avoid touching your mouth, nose, and eyes. To help avoid spreading the virus to others: Stay home if you are sick or have been exposed to the virus. Don't go to school, work, or public areas. And don't use public transportation, ride-shares, or taxis unless you have no choice. Wear a cloth face cover if you have to go to public areas. Cover your mouth with a tissue when you cough or sneeze. Then throw the tissue in the trash and wash your hands right away. If you're sick: ? Leave your home only if you need to get medical care. But call the doctor's office first so they know you're coming. And wear a face cover. ? Wear the face cover whenever you're around other people. It can help stop the spread of the viruswhen you cough or sneeze. ? Limit contact with pets and people in your home. If possible, stay in a separate bedroom and use a separate bathroom. ? Clean and disinfect your home every day. Use household shotgun shell reprinting unit operator and disinfectant wipes or sprays.Take special care to clean things that you grab with your hands. These include doorknobs, remote controls, phones, and handles on your refrigerator and microwave. And don't forget countertops, tabletops, bathrooms, and computer keyboards. When should you call for help? Call 911 anytime you think you may need emergency care. For example, call if you have life-threatening symptoms, such as: You have severe trouble breathing. (You can't talk at all.) You have constant chest pain or pressure. You are severely dizzy or lightheaded. You are confused or can't think clearly. Your face and lips have a blue color. You pass out (lose consciousness) or are very hard to wake up. Call your doctor now or seek immediate medical care if: You have moderate trouble breathing. (You can't speak a full sentence.) You are coughing up blood (more than about 1 teaspoon). You have signs of low blood pressure. These include feeling lightheaded; being too weak to stand; and having cold, pale, clammy skin. Watch closely for changes in your health, and be sure to contact your doctor if: Your symptoms get worse. You are not getting better as expected. Call before you go to the doctor's office. Follow their instructions. And wear a cloth face cover. Current as of: March 30, 2020 Content Version: 12.7 [employer]. Care instructions adapted under license by [employer]. If you have questions about a medical condition or this instruction, always ask your healthcare professional. [employer] disclaims any warranty or liability for your use of this information. 10 Things to Do When You Have COVID-19 Stay home. Don't go to school, work, or public areas. And don't use public transportation, ride-shares, or taxis unless you have no choice. Leave your home only if you need to get medical care. But call the doctor's office first so they know you're coming. And wear a cloth face cover. Ask before leaving isolation. Talk with your doctor or other health professional about when it willbe safe for you to leave isolation. Wear a cloth face cover when you are around other people. It can help stop the spread of the virus when you cough or sneeze. Limit contact with people in your home. If possible, stay in a separate bedroom and use a separate bathroom. Avoid contact with pets and other animals. If possible, have a friend or family member care for them while you're sick. Cover your mouth and nose with a tissue when you cough or sneeze. Then throw the tissue in the trash right away. Wash your hands often, especially after you cough or sneeze. Use soap and water, and scrub for at least 20 seconds. If soap and water aren't available, use an alcohol-based hand skoog operator. Don't share personal household items. These include bedding, towels, cups and glasses, and eating utensils. Clean and disinfect your home every day. Use household shotgun shell reprinting unit operator or disinfectant wipes or sprays. Take special care to clean things that you grab with your hands. These include doorknobs, remote controls, phones, and handles on your refrigerator and microwave. And don't forget countertops, tabletops, bathrooms, and computer keyboards. Take acetaminophen (Tylenol) to relieve fever and body aches. Read and follow all instructions on the label. Current as of: March 30, 2020 Content Version: 12.7 [employer]. Care instructions adapted under license by [employer]. If you have questions about a medical condition or this instruction, always ask your healthcare professional. [employer] disclaims any warranty or liability for your use of this information. documented in this encounter* Discharge Instr - SENA* Aniyah Gagnon RN - 07/25/2020 3:21 PM EDT Continuity of Care Form Patient Name: Sophie Hicks : 1965 Admit date: 07/23/2020 Discharge date: 07/25/2020 Code Status Order: Full Code Advance Directives: Admitting Physician: Vidal Moyer DO PCP: Naima Rodriguez MD Discharging Nurse: Aniyah Gagnon RN Discharging Hospital Unit/Room#: 1340/1340B Discharging Unit Emergency Contact: Extended Emergency Contact Information Primary Emergency Contact: Ellie Hicks Address: [id number] [place] [address] of [employer] Relation: Spouse Past Surgical History: Past Surgical History: Procedure Laterality Date APPENDECTOMY COLONOSCOPY ENDOSCOPY, COLON, DIAGNOSTIC NECK SURGERY Posterior cervical fusion ROTATOR CUFF REPAIR Bilateral Immunization History: Immunization History Administered Date(s) Administered Influenza 04/20/2013 Influenza Virus Vaccine 01/12/2014, 01/29/2015 Influenza, Quadv, IM, PF (6 mo and older Fluzone, Flulaval, Fluarix, and 3 yrs and older Afluria) 05/01/2020 Td, unspecified formulation 04/13/2002 Tdap (Boostrix, Adacel) 07/06/2014 Active Problems: Patient Active Problem List Diagnosis Code 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 Multiple joint pain M25.50 History of colonic polyps Z86.010 Insomnia G47.00 CAD (coronary artery disease) I25.10 Benign essential HTN I10 Morbid obesity (HCC) E66.01 COVID-19 U07.1 Abdominal pain R10.9 Nephrotic syndrome N04.9 Diarrhea R19.7 Neurological symptoms R29.90 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 Hx: nephrotic syndrome Z87.441 Bilateral lower extremity edema R60.0 TIA (transient ischemic attack) G45.9 Mixed hyperlipidemia E78.2 Peripheral edema R60.9 Isolation/Infection: Isolation No Isolation Patient Infection Status Infection Onset Added Last Indicated Last Indicated By Review Planned Expiration Resolved Resolved By None active Resolved C-diff Rule Out 06/08/20 06/08/20 06/09/20 Gastrointestinal Panel by DNA (Ordered) 06/09/20 Rule-Out Test Resulted C-diff Rule Out 06/04/20 06/04/20 06/04/20 Gastrointestinal Panel by DNA (Ordered) 06/05/20 Siria Ohara RN COVID-19 04/21/20 04/21/20 Yariel Quintero RN 05/05/20 04/21/20 COVID-19 Rule Out 04/21/20 04/21/20 04/21/20 Respiratory Panel, Molecular, with COVID-19 (Restricted: peds pts or suitable admitted adults) (Ordered) 04/21/20 Yariel Quintero RN Nurse Assessment: Last Vital Signs: BP (!) 152/77 Pulse 89 Temp 96.7 F (35.9 C) (Temporal) Resp 15 Ht 6' 0.99 (1.854 m) Wt (!) 375 lb (170.1 kg) SpO2 95% BMI 49.49 kg/m Last documented pain score (0-10 scale): Pain Level: 0 Last Weight: Wt Readings from Last 1 Encounters: 07/23/20 (!) 375 lb (170.1 kg) * Additional Instructions* Ayaka Christian RN - 07/23/2020 Refer to the Understanding Stroke Booklet given to you, written material provided to patient/family, addressing all signs & symptoms of a stroke, which are: sudden numbness or weakness, especially on one side of the body sudden confusion sudden difficulty speaking or understanding sudden loss of vision sudden dizziness or loss of balance or coordination sudden severe headache Explained the need to call EMS (911) immediately if signs & symptoms occur. Discussed medications that the patient is taking, will review medications again prior to discharge, risk factors, and the need for follow-up with a physician/SIDE GUIDER/PA after discharge. Discussed the patient s personal risk factors for Stroke /TIA with patient/family, and ways to reduce the risk for a recurrent stroke. Patient's personal risk factors which were identified are: [x] High blood pressure [x] High cholesterol [] Atrial fibrillation [] Diabetes [] Smoking [x] Overweight [] Lack of Exercise [] Sleep apnea [x] Prior heart disease or heart attack [] Excessive alcohol use [] Use of illicit drugs [] Personal history of previous TIA or stroke [] Family history of stroke or heart disease [] Carotid stenosis [] Heart failure [] Patent Foramen Ovale [] Migraine [] Hormone replacement therapy [] Current (up to six weeks post ) [] Depression [] Sickle Cell [] Renal insufficiency - chronic [] None Refer to Understanding Stroke Booklet. Advised patient that risk for stroke/TIA can be reduced by modifying/controlling risk factors. Patient advised to take medications as prescribed, which will be detailed in the discharge instructions, and to not stop taking them without consulting a physician. In addition, pt. advised to maintain a healthy diet, exercise regularly and to not smoke. documented in this encounter Assessments Diagnosis Chest pain, unspecified type- Primary Bilateral leg edema Edema Diagnosis Acute viral syndrome- Primary Diagnosis Generalized abdominal pain- Primary Abdominal pain, generalized Abdominal pain Abdominal pain, unspecified site Nephrotic syndrome Nephrotic syndrome with unspecified pathological lesion in kidney CAD (coronary artery disease) Coronary atherosclerosis of unspecified type of vessel, [place] or graft Diagnosis Intractable abdominal pain- Primary Abdominal pain, unspecified site Diarrhea, unspecified type Lower GI bleed Hemorrhage of gastrointestinal tract, unspecified Generalized abdominal pain Abdominal pain, generalized Abdominal pain Abdominal pain, unspecified site Nausea and vomiting Nausea with vomiting Rectal bleeding Hemorrhage of rectum and anus Diagnosis COVID-19- Primary Pneumonia due to organism Pneumonia due to other specified organism Dyspnea and respiratory abnormalities Other dyspnea and respiratory abnormality Fever, unspecified fever cause Diagnosis TIA (transient ischemic attack)- Primary Unspecified transient cerebral ischemia Neurological symptoms Other symptoms involving nervous and musculoskeletal systems Shortness of breath Peripheral edema Edema Osteoarthritis of spine with radiculopathy, cervical region Morbid obesity (HCC) Morbid obesity CAD (coronary artery disease) Coronary atherosclerosis of unspecified type of vessel, [place] or graft Benign essential HTN Essential hypertension, benign Diffuse membranous glomerulonephritis Nephritis and nephropathy, not specified as acute or chronic, with lesion of membranous glomerulonephritis Bilateral lower extremity edema Edema Steroid-induced hyperglycemia Other abnormal glucose Metabolic acidosis Acidosis Mixed hyperlipidemia Nephrotic syndrome Nephrotic syndrome with unspecified pathological lesion in kidney Summary Purpose Family History No Family History Records FoundNo Family History Records FoundNo Family History Records FoundNo Family History Records FoundNo Family History Records FoundNo Family History Records FoundNo Family History Records FoundNo Family History Records Found History of Present Illness * Cydney Farrar - 06/06/2020 8:19 AM EST Nutrition rescreen completed. Patient assigned a level 1. * Tamia Olson RN - 06/05/2020 3:49 PM EST Arrived from IR, via cart, to 144-2 * Mikey Bauman MD - 06/05/2020 11:11 AM EST [facility] Progress Note Subjective/ 54 y.o. year old male who we are seeing in consultation for nephrotic syndrome. BP on the higher side. Renal biopsy this AM scheduled. Diuresing well with Iv lasix. Denies any new issues. ROS otherwise negative. No change in pfsh. Objective/ Vitals: 06/04/20 23006/04/20 23006/04/20 23006/05/20 0736 BP: (!) 123/59 (!) 156/92 (!) 172/96 128/75 Pulse: 87 103 106 68 Resp: 18 Temp: 97.2 F (36.2 C) TempSrc: Temporal Temporal Temporal Temporal SpO2: 92% 24HR INTAKE/OUTPUT: Intake/Output Summary (Last 24 hours) at 06/05/2020 1111 Last data filed at 06/05/2020 1016 Gross per 24 hour Intake Output 2756 ml Net -2756 ml Constitutional: Alert, awake, no apparent distress Head: AT NC Neck: No JVD, no thyromegaly Cardiovascular: S1, S2 without m/r/g Respiratory: CTA B without w/r/r Abdomen: soft, nt Ext: 1+ B/L pitting LE edema Current Facility-Administered Medications Medication Dose Route Frequency Provider Last Rate Last Admin sodium chloride flush 0.9 % injection 10 mL 10 mL Intravenous 2 times per day Angela Jackson MD 10 mL at 06/05/20 0852 sodium chloride flush 0.9 % injection 10 mL 10 mL Intravenous PRN Angela Jackson MD promethazine (PHENERGAN) tablet 12.5 mg 12.5 mg Oral Q6H PRN Angela Jackson MD 12.5 mg at 06/05/20 0353 Or ondansetron (ZOFRAN) injection 4 mg 4 mg Intravenous Q6H PRN Angela Jackson MD polyethylene glycol (GLYCOLAX) packet 17 g 17 g Oral Daily PRN Angela Jackson MD acetaminophen (TYLENOL) tablet 650 mg 650 mg Oral Q6H PRN Angela Jackson MD Or acetaminophen (TYLENOL) suppository 650 mg 650 mg Rectal Q6H PRN Angela Jackson MD pantoprazole (PROTONIX) injection 40 mg 40 mg Intravenous Daily Angela Jackson MD 40 mg at 06/05/20 0851 And sodium chloride (PF) 0.9 % injection 10 mL 10 mL Intravenous Daily Angela Jackson MD 10 mL at 851 [Held by provider] heparin (porcine) injection 5,000 Units 5,000 Units Subcutaneous 3 times per dayAngela Jackson MD 5,000 Units at 06/04/20 164 furosemide (LASIX) injection 40 mg 40 mg Intravenous BID Angela Jackson MD 40 mg at 06/05/20 0827 lidocaine 4 % external patch 1 patch 1 patch Transdermal Daily Angela Jackson MD 1 patch at 06/05/20 0852 albuterol sulfate HFA 108 (90 Base) MCG/ACT inhaler 2 puff 2 puff Inhalation 4x Daily PRN Angela Jackson MD oxyCODONE-acetaminophen (PERCOCET) 5-325 MG per tablet 1 tablet 1 tablet Oral Q4H PRN Jessica Sharp MD oxyCODONE-acetaminophen (PERCOCET) 5-325 MG per tablet 2 tablet 2 tablet Oral Q4H PRN Jessica Sharp MD 2 tablet at 06/05/20 0827 Data/ Recent Labs 06/04/20 1215 06/05/20 0344 WBC 8.4 5.7 HGB 15.2 13.6 HCT 43.4 39.4* MCV 83.9 84.1 PLT 242 202 Recent Labs 06/04/20 1215 06/05/20 0344 NA 138 138 K 4.4 4.0 CL 106 108* CO2 26 25 GLUCOSE 111* 129* BUN 14 15 CREATININE 1.08 1.13 Assessment/ 1. Nephrotic syndrome 2. B/L leg edema 3. Morbid obesity BMI 45 4. Abdominal pain 5. Cervical spondylosis 6. Vitamin D deficiency Plan/ Work up for nephrotic syndrome in progress. Renal biopsy today. Complement levels normal. TSh levels abnormal, needs further eval per Dr. Rodriguez. Serological w/u for GN pending. JACEY, Membranous nephropathy, FSGS, IgA nephropathy are among the long list of differential diagnosis at this point. Recent h/o COVID 19 noted as well, known to cause Interstitial nephritis in some patients. D/w Dr. Frankie Rodriguez. Will follow. Mikey Bauman MD [facility] documented in this encounter* Mikey Bauman MD - 06/11/2020 4:25 PM EST [facility] Progress Note SHB 1E MED SURG Patient: Sophie Hicks Unit/Bed: 152/1521 Date of : 1965 Acct: [id number] Admitting Diagnosis: Abdominal pain [R10.9] Admit Date: 06/08/2020 Hospital Day: 0 Subjective: Patient is having problems with abdominal pain - better Slight edema to lower extremities No SOB No CP Good urine output BP ok No diarrhea or bloody stools overnight Ros is (-) unless is mentioned No change in PFSH Patient Seen, Chart, Labs, Radiology studies, and Consults reviewed. Objective: BP 121/83 Pulse 71 Temp 98.8 F (37.1 C) (Temporal) Resp 16 Ht 6' 1 (1.854 m) Wt (!) 355 lb (161 kg) SpO2 95% BMI 46.84 kg/m Intake/Output Summary (Last 24 hours) at 06/11/2020 1625 Last data filed at 06/11/2020 1120 Gross per 24 hour Intake 200 ml Output 1000 ml Net -800 ml General Appearance: Alert, oriented to person,place time, appears well, and in no acute distress Skin: skin has good color, good turgor, no rashes, no acute lesions Lungs: CTA bilaterally, no wheeze, rales or rhonchi, good air entry, good respiratory effort Heart: Heart sounds are regular. Regular rate and rhythm without murmur, gallop or rub. Abdomen: Abnormal shape: obese Auscultation: Normal bowel sounds. No bruits. Palpation: Tenderness: diffuse Extremities: Extremities warm to touch, pink, with no edema., pulses present in all extremities andnon-pitting edema of bilateral lower extremities Neurologic: No syncope, no seizures, no numbness or tingling of hands, no numbness or tingling of feet, no paresis Affect: Neutral/ Euthymic (normal) Conte:No Drains:No Central Line/port:No EKG:No Imaging:No Diet: DIET LOW FIBER; Medications: lisinopril 10 mg Oral Daily furosemide 80 mg Oral Daily dicyclomine 20 mg Oral TID AC pantoprazole 40 mg Oral BID WC sucralfate 1 g Oral 4 times per day sodium chloride flush 10 mL Intravenous 2 times per day enoxaparin 40 mg Subcutaneous Daily lidocaine 1 patch Transdermal Daily Continuous Infusions: PRN Meds:oxyCODONE-acetaminophen, albuterol, sodium chloride flush, promethazine OR ondansetron, polyethylene glycol, acetaminophen OR acetaminophen Data: CBC: Recent Labs 06/09/2041506/09/2041506/09/20203806/10/2049906/11/20 035 WBC 7.1 -- -- 6.2 6.7 RBC 4.91 -- -- 4.80 5.10 HGB 14.0 < > 14.4 13.8 14.7 HCT 41.6 < > 42.6 40.3 43.1 MCV 84.8 -- -- 83.9 84.5 RDW 14.4 -- -- 14.7* 14.4 PLT 205 -- -- 186 193 < > = values in this interval not displayed. BMP: Recent Labs 06/09/2041506/10/2049906/11/20 035 NA 139 137 136 K 3.6 3.6 3.2* CL 105 102 100 CO2 29 30 30 BUN 15 12 11 CREATININE 1.21 1.13 1.05 BNP: No results for input(s): BNP in the last 72 hours. PT/INR: No results for input(s): PROTIME, INR in the last 72 hours. APTT: No results for input(s): APTT in the last 72 hours. CARDIAC ENZYMES: No results for input(s): CKMB, CKMBINDEX, TROPONINT in the last 72 hours. Invalid input(s): CKTOTAL;3 FASTING LIPID PANEL: Lab Results Component Value Date CHOL 156 01/29/2015 HDL 44 01/29/2015 TRIG 124 01/29/2015 LIVER PROFILE: Recent Labs 06/08/20 1702 AST 44 ALT 31 BILITOT 0.5 ALKPHOS 57 ABGs: No results found for: PH, PCO2, PO2, HCO3, O2SAT Assessment/Plan: 1. Nephrotic syndrome 2. B/L leg edema 3. Morbid obesity BMI 45 4. Abdominal pain 5. Cervical spondylosis 6. Vitamin D deficiency RECOMMENDATIONS: 24hr proteinuria showed 17gm protein previously Creatinine at baseline. Has nephrotic syndrome picture - prelim report consistent with membranous nephropathy. While we arewaiting on formal report, it is reasonable to consider age appropriate cancer screening (patient's get secondary membranous nephropathy 2/2 infections or cancers), and order pLA2R (positive usually in Idiopathic/Primary membranous nephropathy) Add Lisinopril 10mg qday Volume status - hypervolemic with third spacing. Continue PO lasix Had colonoscopy and EGD this morning. GI recommendations noted Avoid nephrotoxins and contrast No other changes We will continue to follow Thank you for asking us to participate in the management of your patient, please do not hesitate tocontact me for any concerns regarding my recommendations as outlined above. * Sonja Chavez RN - 06/11/2020 10:19 AM EST POST ENDOSCOPY PROCEDURE TRANSFER REPORT Procedure completed: EGD/Colonoscopy Findings:polyp/internal hemorhoids Specimens obtained: yes Medications administered: propofol 700 mg IV Additional Info: see physician brief op note. For additional Questions please call Endoscopy at [phone]. Thank You! * Landon Abraham DO - 06/10/2020 11:21 AM EST GASTROENTEROLOGY PROGRESS NOTE Patient: Sophie Hicks : 1965 Primary Care Physician: Naima Rodriguez MD History: C/o of intermittent lower abd cramping. 1 loose BM overnight. No further evidence of rectal bleeding. Stool studies -ve Physical Exam: Gen: AAOx3 in NAD BP 136/76 Pulse 75 Temp 97.8 F (36.6 C) (Temporal) Resp 17 Ht 6' 1 (1.854 m) Wt (!) 355 lb (161 kg) SpO2 93% BMI 46.84 kg/m CVS: RRR, s1, s2, no mrg Abd: Soft, Mild RLQ tenderness/ND, +BS, No guarding/rebound, Ext: No C/C/E Laboratory Data: CBC: Recent Labs 06/09/20 0416 06/09/20 1112 06/09/20203806/10/20 0500 WBC 7.1 -- -- 6.2 HGB 14.0 14.1 14.4 13.8 HCT 41.6 41.6 42.6 40.3 PLT 205 -- -- 186 CMP: Recent Labs 06/09/20 0416 06/10/20 0500 NA 139 137 K 3.6 3.6 CL 105 102 CO2 29 30 BUN 15 12 CREATININE 1.21 1.13 GLUCOSE 145* 127* CALCIUM 7.6* 8.0* HEPATIC: Recent Labs 06/08/20 1702 AST 44 ALT 31 BILITOT 0.5 ALKPHOS 57 LIPASE/AMYLASE: Recent Labs 06/08/20 1702 LIPASE 88 LACTATE: Recent Labs 06/08/20 1754 LACTA 1.3 Assessment: 1. Generalized abd pain 2. Diarrhea - r/o colitis (infectious, inflammatory, ischemic, microscopic) 3. Mild rectal bleeding - normal hgb, R/O hemorrhoidal, colonic polyps, proctitis/colitis 4. N/V Plan: 1. EGD and colonoscopy in the AM The benefits, alternatives, and risks of the procedure(s) including (but not exclusive to) pain, bleeding, perforation, infection, need for surgery, and likelihood of missing a polyp or neoplastic lesion, were explained to the patient/guardian/responsible accompanying adult who is agreeable. * Rohan Hoover MD - 06/10/2020 10:39 AM EST Increased interval of Dilaudid dosing due to concerns from nursing about oversedation, especially when patient is ambulating. Will try increasing dose of Bentyl to see if this helps with abdominal cramping. -Rohan Hoover MD Family Medicine * Adrienne Esparza MD - 06/10/2020 10:06 AM EST [facility] Progress Note SHB 1E MED SURG Patient: Sophie Hicks Unit/Bed: 152/1521 Date of : 1965 Acct: [id number] Admitting Diagnosis: Abdominal pain [R10.9] Admit Date: 06/08/2020 Hospital Day: 0 Subjective: Patient is having problems with abdominal pain Edema is better No SOB No CP Good urine output BP ok No diarhea Ros is (-) unless is mentioned No change in PFSH Patient Seen, Chart, Labs, Radiology studies, and Consults reviewed. Objective: BP 136/76 Pulse 75 Temp 97.8 F (36.6 C) (Temporal) Resp 17 Ht 6' 1 (1.854 m) Wt (!) 355 lb (161 kg) SpO2 93% BMI 46.84 kg/m Intake/Output Summary (Last 24 hours) at 06/10/2020 1006 Last data filed at 06/10/2020 0013 Gross per 24 hour Intake Output 2400 ml Net -2400 ml General Appearance: Alert, oriented to person,place time, appears well, and in no acute distress Skin: skin has good color, good turgor, no rashes, no acute lesions Lungs: CTA bilaterally, no wheeze, rales or rhonchi, good air entry, good respiratory effort Heart: Heart sounds are regular. Regular rate and rhythm without murmur, gallop or rub. Abdomen: Abnormal shape: obese Auscultation: Normal bowel sounds. No bruits. Palpation: Tenderness: diffuse Extremities: Extremities warm to touch, pink, with no edema., pulses present in all extremities andnon-pitting edema of bilateral lower extremities Neurologic: No syncope, no seizures, no numbness or tingling of hands, no numbness or tingling of feet, no paresis Affect: Neutral/ Euthymic (normal) Conte:No Drains:No Central Line/port:No EKG:No Imaging:No Diet: DIET CLEAR LIQUID; Medications: furosemide 80 mg Oral Daily dicyclomine 10 mg Oral TID AC pantoprazole 40 mg Oral BID WC sucralfate 1 g Oral 4 times per day sodium chloride flush 10 mL Intravenous 2 times per day enoxaparin 40 mg Subcutaneous Daily lidocaine 1 patch Transdermal Daily Continuous Infusions: PRN Meds:albuterol, sodium chloride flush, promethazine OR ondansetron, polyethylene glycol, acetaminophen OR acetaminophen, HYDROmorphone Data: CBC: Recent Labs 06/08/20 1702 06/09/20 0416 06/09/20 1112 06/09/20 2039 06/10/20 0500 WBC 8.1 7.1 -- -- 6.2 RBC 5.37 4.91 -- -- 4.80 HGB 15.5 14.0 14.1 14.4 13.8 HCT 45.0 41.6 41.6 42.6 40.3 MCV 83.8 84.8 -- -- 83.9 RDW 14.5 14.4 -- -- 14.7* PLT 215 205 -- -- 186 BMP: Recent Labs 06/08/20 1702 06/09/20 0416 06/10/20 0500 NA 136 139 137 K 3.9 3.6 3.6 CL 103 105 102 CO2 27 29 30 BUN 14 15 12 CREATININE 1.22 1.21 1.13 BNP: No results for input(s): BNP in the last 72 hours. PT/INR: No results for input(s): PROTIME, INR in the last 72 hours. APTT: No results for input(s): APTT in the last 72 hours. CARDIAC ENZYMES: No results for input(s): CKMB, CKMBINDEX, TROPONINT in the last 72 hours. Invalid input(s): CKTOTAL;3 FASTING LIPID PANEL: Lab Results Component Value Date CHOL 156 01/29/2015 HDL 44 01/29/2015 TRIG 124 01/29/2015 LIVER PROFILE: Recent Labs 06/08/20 1702 AST 44 ALT 31 BILITOT 0.5 ALKPHOS 57 ABGs: No results found for: PH, PCO2, PO2, HCO3, O2SAT Assessment/Plan: 1. Nephrotic syndrome 2. B/L leg edema 3. Morbid obesity BMI 45 4. Abdominal pain 5. Cervical spondylosis 6. Vitamin D deficiency RECOMMENDATIONS: 24hr proteinuria showed 17gm protein previously W/U for nephrotic syndrome in process, await full renal biopsy results Serological w/u previously negative Continue PO lasix R/o GIB in setting of bloody BMs - defer to GI Avoid nephrotoxins and contrast No other changes We will continue to follow Thank you for asking us to participate in the management of your patient, please do not hesitate tocontact me for any concerns regarding my recommendations as outlined above. Patient is independently assessed and examined and all data and notes are reviewed.I reviewed the [employer] MA[employer] notes and findings I agree with her assessment and plan. Edema better Maintain diuresis No other changes Will follow * Rohan Hoover MD - 06/10/2020 9:04 AM EST Medical Teaching Service Progress Note Patient: Sophie Hicks : 1965 Acct: [id number] PCP: Naima Rodriguez MD Admitting Physician: Francisco J Saavedra MD Admission Date: 06/08/2020 Admitting Diagnosis: Abdominal pain [R10.9] Unit/Bed: 152/1521 Hospital Day: 0 Code Status: Full Code Overnight Events: N/A Subjective: Sophie Hicks was seen and examined, awake in bed. He reports having some sporadic abdominal cramping this morning, but is otherwise doing well. Did have a BM last night, which was loose and without blood. Denies Chest Pain, Shortness of Breath, Nausea, Vomiting, Diarrhea, Constipation and Dysuria Objective: Vitals: 06/09/20 1745 06/09/20 1800 06/09/20 1928 06/10/20 0752 BP: (!) 158/78 127/78 136/76 Pulse: 80 80 70 75 Resp: 16 17 17 Temp: 98.9 F (37.2 C) 97.5 F (36.4 C) 97.8 F (36.6 C) TempSrc: Temporal Temporal Temporal SpO2: 95% 92% 93% Weight: Height: Intake/Output Summary (Last 24 hours) at 06/10/2020 0904 Last data filed at 06/10/2020 0013 Gross per 24 hour Intake Output 2400 ml Net -2400 ml Physical Exam Vitals signs and nursing note reviewed. Constitutional: Appearance: He is well-developed. He is obese. He is not ill-appearing. HENT: Head: Normocephalic and atraumatic. Right Ear: External ear normal. Left Ear: External ear normal. Nose: Nose normal. Mouth/Throat: Mouth: Mucous membranes are moist. Pharynx: Oropharynx is clear. Eyes: Extraocular Movements: Extraocular movements intact. Neck: Musculoskeletal: Normal range of motion and neck supple. Cardiovascular: Rate and Rhythm: Normal rate and regular rhythm. Heart sounds: Normal heart sounds. No murmur. No friction rub. No gallop. Pulmonary: Effort: Pulmonary effort is normal. No respiratory distress. Breath sounds: Normal breath sounds. No stridor. No wheezing or rales. Chest: Chest wall: No tenderness. Abdominal: General: Abdomen is flat. There is no distension. Palpations: Abdomen is soft. There is no mass. Tenderness: There is abdominal tenderness (Generalized abdominal tenderness, improved from prior). There is no guarding or rebound. Musculoskeletal: Normal range of motion. Skin: General: Skin is warm and dry. Neurological: General: No focal deficit present. Mental Status: He is alert and oriented to person, place, and time. Mental status is at baseline. Psychiatric: Mood and Affect: Mood normal. Conte: No Drains: No Central Line/Port: No Diet: DIET CLEAR LIQUID; Medications: furosemide 80 mg Oral Daily dicyclomine 10 mg Oral TID AC pantoprazole 40 mg Oral BID WC sucralfate 1 g Oral 4 times per day sodium chloride flush 10 mL Intravenous 2 times per day enoxaparin 40 mg Subcutaneous Daily lidocaine 1 patch Transdermal Daily Continuous Infusions: PRN Meds:albuterol, sodium chloride flush, promethazine OR ondansetron, polyethylene glycol, acetaminophen OR acetaminophen, HYDROmorphone Labs: Recent Results (from the past 24 hour(s)) Hemoglobin and Hematocrit, Blood Collection Time: 06/09/20 11:12 AM Result Value Ref Range Hemoglobin 14.1 13.0 - 18.0 g/dL Hematocrit 41.6 40.0 - 52.0 % C. difficile toxin Molecular Collection Time: 06/09/20 4:49 PM Specimen: Stool RECTUM Result Value Ref Range C. difficile toxin Molecular NEGATIVE Methodology - Real Time PCR (ClearFit) Clinical judgement must be used when interpreting results. Positive results may reflect colonization. Indeterminate results suggest a new specimen be submitted. Gastrointestinal Panel by DNA Collection Time: 06/09/20 4:49 PM Specimen: Stool RECTUM Result Value Ref Range Gastrointestinal PCR Panel NEGATIVE: No targets were detected by the [employer] Gastrointestinal PCR Panel. _ The [employer] Gastrointestinal PCR Panel can detect the following targets: Campylobacter, Plesiomonas shigelloides, Salmonella, Vibrio species, Vibrio cholerae, Yersinia enterocolitica, Shiga toxin-producing E coli (STEC) including E coli O157, Enterotoxigenic E coli (ETEC), Shigella/Enteroinvasive E coli (EIEC), Cryptosporidium, Cyclospora cayetanensis, Entamoeba histolytica, Giardia lamblia, Adenovirus F 40/41, Astrovirus, Norovirus GI/GII, Rotavirus A, Sapovirus Hemoglobin and Hematocrit, Blood Collection Time: 06/09/20 8:39 PM Result Value Ref Range Hemoglobin 14.4 13.0 - 18.0 g/dL Hematocrit 42.6 40.0 - 52.0 % Basic Metabolic Panel w/ Reflex to MG Collection Time: 06/10/20 5:00 AM Result Value Ref Range Sodium 137 135 - 145 mmol/L Potassium 3.6 3.5 - 5.1 mmol/L Chloride 102 98 - 107 mmol/L CO2 30 22 - 30 mmol/L Anion Gap 5 3 - 13 mmol/L Glucose 127 (H) 70 - 100 mg/dL BUN 12 7 - 20 mg/dL CREATININE 1.13 0.52 - 1.25 mg/dL eGFR 83.4 >60 mL/min EGFR IF NonAfrican [place]i 71.9 >60 mL/min Calcium 8.0 (L) 8.4 - 10.4 mg/dL CBC auto differential Collection Time: 06/10/20 5:00 AM Result Value Ref Range WBC 6.2 3.6 - 10.7 10*3/uL RBC 4.80 4.40 - 5.90 10*6/uL Hemoglobin 13.8 13.0 - 18.0 g/dL Hematocrit 40.3 40.0 - 52.0 % MCV 83.9 80.0 - 98.0 fL MCH 28.8 26.0 - 34.0 pg MCHC 34.4 32.0 - 36.0 % RDW 14.7 (H) 11.5 - 14.5 % Platelets 186 140 - 440 10*3/uL MPV 6.3 (L) 7.4 - 10.4 fL Granulocytes % 58.1 40.0 - 80.0 % Lymphocyte % 26.0 20.0 - 40.0 % Monocytes 7.4 2.0 - 10.0 % Eosinophils 7.5 (H) 1.0 - 6.0 % Basophils 1.0 0.0 - 2.0 % Absolute Neut # 3.6 1.8 - 7.0 10*3/uL Absolute Lymph # 1.6 1.0 - 4.3 10*3/uL Absolute Perry # 0.5 0.0 - 0.8 10*3/uL Absolute Eos # 0.5 0.0 - 0.5 10*3/uL Absolute Baso # 0.1 0.0 - 0.2 10*3/uL ASSESSMENT/PLAN: Active Hospital Problems Diagnosis Abdominal pain [R10.9] Abdominal Pain 2/2 GI Bleed +/- Ischemia -FLD -Transfuse if hemoglobin below 7.0 -Daily CBC and BMP -Continue Protonix 40mg PO BID -Continue Bentyl 10mg PO TID QAC -Continue Carafate 1g PO QAC HS -Dilaudid 1-2mg IV Q3H (Avoid in hypotension) -Zofran 4mg IM Q6H (Watch QTc) -Gastroenterology recs: -Colonoscopy on Thursday Membranous Nephropathy -Daily Weights -Strict I/Os -Nephrology recs: -Lasix restarted -Avoid contrast/Nephrotoxins Cervical Spondylosis -Lidocaine Patch 4% FEN/GI/DVT: IVF: None Electrolytes: Monitor and replace per protocols Diet: FLD GI PPX: On PPI for GERD DVT Prophylaxis: SCDs Code Status: Full DISPOSITION: Colonoscopy thursday -Rohan Hoover MD Family Medicine * Clair Jackson DTR - 06/10/2020 8:01 AM EST Nutrition rescreen complete. Pt assigned a level one for nutrition care. * Francisco J Saavedra MD - 06/10/2020 7:39 AM EST Medical Teaching Service Progress Note Patient: Sophie Hicks : 1965 Acct: [id number] PCP: Naima Rodriguez MD Admitting Physician: Francisco J Saavedra MD Admission Date: 06/08/2020 Admitting Diagnosis: Abdominal pain [R10.9] Unit/Bed: 152/[facility] Hospital Day: 0 Code Status: Full Code Overnight Events: N/A Subjective: Sophie Hicks was seen and examined, awake in bed. He reports being able to sleep somewhat last night. His pain is still present, but is under better control this morning. He had no other questions/concerns. No changes overnight, still with loose stools no melena or hematochezia, no nausea or vomiting Denies Objective: Vitals: 06/09/20 1545 06/09/20 1745 06/09/20 1800 06/09/20 1928 BP: (!) 158/78 127/78 Pulse: 80 80 80 70 Resp: 16 17 Temp: 98.9 F (37.2 C) 97.5 F (36.4 C) TempSrc: Temporal Temporal SpO2: 95% 92% Weight: Height: Intake/Output Summary (Last 24 hours) at 06/10/2020 0739 Last data filed at 06/10/2020 0013 Gross per 24 hour Intake Output 2400 ml Net -2400 ml Physical Exam Vitals signs and nursing note reviewed. Constitutional: Appearance: He is well-developed. He is obese. He is not ill-appearing. HENT: Head: Normocephalic and atraumatic. Right Ear: External ear normal. Left Ear: External ear normal. Nose: Nose normal. Mouth/Throat: Mouth: Mucous membranes are moist. Pharynx: Oropharynx is clear. Eyes: Extraocular Movements: Extraocular movements intact. Neck: Musculoskeletal: Normal range of motion and neck supple. Cardiovascular: Rate and Rhythm: Normal rate and regular rhythm. Heart sounds: Normal heart sounds. No murmur. No friction rub. No gallop. Pulmonary: Effort: Pulmonary effort is normal. No respiratory distress. Breath sounds: Normal breath sounds. No stridor. No wheezing or rales. Chest: Chest wall: No tenderness. Abdominal: General: Abdomen is flat. There is distension. Palpations: Abdomen is soft. There is no mass. Tenderness: There is abdominal tenderness (Diffusely tender to palpation in all four quadrants). There is no guarding or rebound. Musculoskeletal: Normal range of motion. Skin: General: Skin is warm and dry. Neurological: General: No focal deficit present. Mental Status: He is alert and oriented to person, place, and time. Mental status is at baseline. Psychiatric: Mood and Affect: Mood normal. I have independently seen and examined the patient. I have reviewed the resident physician's note and agree with the assessment and plan of care as documented. FRANCISCO J SAAVEDRA MD Conte: No Drains: No Central Line/Port: No Diet: DIET CLEAR LIQUID; Medications: dicyclomine 10 mg Oral TID AC pantoprazole 40 mg Oral BID WC sucralfate 1 g Oral 4 times per day sodium chloride flush 10 mL Intravenous 2 times per day enoxaparin 40 mg Subcutaneous Daily lidocaine 1 patch Transdermal Daily Continuous Infusions: PRN Meds:albuterol, sodium chloride flush, promethazine OR ondansetron, polyethylene glycol, acetaminophen OR acetaminophen, HYDROmorphone Labs: Recent Results (from the past 24 hour(s)) Hemoglobin and Hematocrit, Blood Collection Time: 06/09/20 11:12 AM Result Value Ref Range Hemoglobin 14.1 13.0 - 18.0 g/dL Hematocrit 41.6 40.0 - 52.0 % C. difficile toxin Molecular Collection Time: 06/09/20 4:49 PM Specimen: Stool RECTUM Result Value Ref Range C. difficile toxin Molecular NEGATIVE Methodology - Real Time PCR (ClearFit) Clinical judgement must be used when interpreting results. Positive results may reflect colonization. Indeterminate results suggest a new specimen be submitted. Gastrointestinal Panel by DNA Collection Time: 06/09/20 4:49 PM Specimen: Stool RECTUM Result Value Ref Range Gastrointestinal PCR Panel NEGATIVE: No targets were detected by the [employer] Gastrointestinal PCR Panel. _ The [employer] Gastrointestinal PCR Panel can detect the following targets: Campylobacter, Plesiomonas shigelloides, Salmonella, Vibrio species, Vibrio cholerae, Yersinia enterocolitica, Shiga toxin-producing E coli (STEC) including E coli O157, Enterotoxigenic E coli (ETEC), Shigella/Enteroinvasive E coli (EIEC), Cryptosporidium, Cyclospora cayetanensis, Entamoeba histolytica, Giardia lamblia, Adenovirus F 40/41, Astrovirus, Norovirus GI/GII, Rotavirus A, Sapovirus Hemoglobin and Hematocrit, Blood Collection Time: 06/09/20 8:39 PM Result Value Ref Range Hemoglobin 14.4 13.0 - 18.0 g/dL Hematocrit 42.6 40.0 - 52.0 % Basic Metabolic Panel w/ Reflex to MG Collection Time: 06/10/20 5:00 AM Result Value Ref Range Sodium 137 135 - 145 mmol/L Potassium 3.6 3.5 - 5.1 mmol/L Chloride 102 98 - 107 mmol/L CO2 30 22 - 30 mmol/L Anion Gap 5 3 - 13 mmol/L Glucose 127 (H) 70 - 100 mg/dL BUN 12 7 - 20 mg/dL CREATININE 1.13 0.52 - 1.25 mg/dL eGFR 83.4 >60 mL/min EGFR IF NonAfrican [place] 71.9 >60 mL/min Calcium 8.0 (L) 8.4 - 10.4 mg/dL CBC auto differential Collection Time: 06/10/20 5:00 AM Result Value Ref Range WBC 6.2 3.6 - 10.7 10*3/uL RBC 4.80 4.40 - 5.90 10*6/uL Hemoglobin 13.8 13.0 - 18.0 g/dL Hematocrit 40.3 40.0 - 52.0 % MCV 83.9 80.0 - 98.0 fL MCH 28.8 26.0 - 34.0 pg MCHC 34.4 32.0 - 36.0 % RDW 14.7 (H) 11.5 - 14.5 % Platelets 186 140 - 440 10*3/uL MPV 6.3 (L) 7.4 - 10.4 fL Granulocytes % 58.1 40.0 - 80.0 % Lymphocyte % 26.0 20.0 - 40.0 % Monocytes 7.4 2.0 - 10.0 % Eosinophils 7.5 (H) 1.0 - 6.0 % Basophils 1.0 0.0 - 2.0 % Absolute Neut # 3.6 1.8 - 7.0 10*3/uL Absolute Lymph # 1.6 1.0 - 4.3 10*3/uL Absolute Perry # 0.5 0.0 - 0.8 10*3/uL Absolute Eos # 0.5 0.0 - 0.5 10*3/uL Absolute Baso # 0.1 0.0 - 0.2 10*3/uL ASSESSMENT/PLAN: Active Hospital Problems Diagnosis Abdominal pain [R10.9] Abdominal Pain 2/2 GI Bleed +/- Ischemia Patient recently admitted for abdominal pain, now with blood in his stool. -NPO -Maintenance IV Fluids: lactated Ringer's at 100ml/hr. -Type & Screen -Transfuse if hemoglobin below 7.0 -GI Panel -Daily CBC and BMP -H&H Q6H -Continue Protonix 40mg PO BID -Continue Bentyl 10mg PO TID QAC -Continue Carafate 1g PO QAC HS -Dilaudid 1-2mg IV Q3H (Avoid in hypotension) -Zofran 4mg IM Q6H (Watch QTc) -Gastroenterology Consult await trish isbellI have independently seen and examined the patient.I have reviewed the resident physician's note and agree with the assessment and plan of care as documented. FRANCISCO J SAAVEDRA MD Membranous Nephropathy -HOLD Lasix 40mg PO daily -Daily Weights -Strict I/Os -Consult Nephrology Cervical Spondylosis -Lidocaine Patch 4% FEN/GI/DVT: IVF: Lactated Ringer's @ 100ml/hr Electrolytes: Monitor and replace per protocols Diet: NPO GI PPX: On PPI for GERD DVT Prophylaxis: SCDs Code Status: Full DISPOSITION: Specialist recommendations -Rohan Hoover MD Family Medicine * Francisco J Saavedra MD - 06/09/2020 7:36 AM EST [facility] Teaching Service Progress Note Patient: Sophie Hicks : 1965 Acct: [id number] PCP: Naima Rodriguez MD Admitting Physician: Francisco J Saavedra MD Admission Date: 06/08/2020 Admitting Diagnosis: Abdominal pain [R10.9] Unit/Bed: 152/1521 Hospital Day: 0 Code Status: Full Code Overnight Events: N/A Subjective: Sophie Hicks was seen and examined, awake in bed. He reports being able to sleep somewhat last night. His pain is still present, but is under better control this morning. He had no other questions/concerns. Denies Chest Pain, Shortness of Breath, Nausea, Vomiting, Diarrhea, Constipation and Dysuria Objective: Vitals: 06/08/20 2255 06/08/20 2337 06/09/20 0452 06/09/20 0729 BP: 102/82 (!) 145/87 136/82 Pulse: 90 95 86 Resp: 18 20 18 18 Temp: 98 F (36.7 C) 97.9 F (36.6 C) TempSrc: Temporal Temporal SpO2: 98% 93% 93% 94% Weight: Height: Intake/Output Summary (Last 24 hours) at 06/09/2020 0736 Last data filed at 06/09/2020 0619 Gross per 24 hour Intake Output 100 ml Net -100 ml Physical Exam Vitals signs and nursing note reviewed. Constitutional: Appearance: He is well-developed. He is obese. He is not ill-appearing. HENT: Head: Normocephalic and atraumatic. Right Ear: External ear normal. Left Ear: External ear normal. Nose: Nose normal. Mouth/Throat: Mouth: Mucous membranes are moist. Pharynx: Oropharynx is clear. Eyes: Extraocular Movements: Extraocular movements intact. Neck: Musculoskeletal: Normal range of motion and neck supple. Cardiovascular: Rate and Rhythm: Normal rate and regular rhythm. Heart sounds: Normal heart sounds. No murmur. No friction rub. No gallop. Pulmonary: Effort: Pulmonary effort is normal. No respiratory distress. Breath sounds: Normal breath sounds. No stridor. No wheezing or rales. Chest: Chest wall: No tenderness. Abdominal: General: Abdomen is flat. There is distension. Palpations: Abdomen is soft. There is no mass. Tenderness: There is abdominal tenderness (Diffusely tender to palpation in all four quadrants). There is no guarding or rebound. Musculoskeletal: Normal range of motion. Skin: General: Skin is warm and dry. Neurological: General: No focal deficit present. Mental Status: He is alert and oriented to person, place, and time. Mental status is at baseline. Psychiatric: Mood and Affect: Mood normal. I have independently seen and examined the patient. I have reviewed the resident physician's note and agree with the assessment and plan of care as documented. MD Sharan MERIDA: No Drains: No Central Line/Port: No Diet: Diet NPO Effective Now Exceptions are: Sips of Water with Meds Medications: dicyclomine 10 mg Oral TID AC pantoprazole 40 mg Oral BID WC sucralfate 1 g Oral 4 times per day sodium chloride flush 10 mL Intravenous 2 times per day enoxaparin 40 mg Subcutaneous Daily lidocaine 1 patch Transdermal Daily Continuous Infusions: lactated ringers 100 mL/hr at 06/08/20 2358 PRN Meds:albuterol, sodium chloride flush, promethazine OR ondansetron, polyethylene glycol, acetaminophen OR acetaminophen, HYDROmorphone Labs: Recent Results (from the past 24 hour(s)) Comprehensive Metabolic Panel Collection Time: 06/08/20 5:02 PM Result Value Ref Range Sodium 136 135 - 145 mmol/L Potassium 3.9 3.5 - 5.1 mmol/L Chloride 103 98 - 107 mmol/L CO2 27 22 - 30 mmol/L Anion Gap 6 3 - 13 mmol/L Glucose 162 (H) 70 - 100 mg/dL BUN 14 7 - 20 mg/dL CREATININE 1.22 0.52 - 1.25 mg/dL eGFR 76.0 >60 mL/min EGFR IF NonAfrican [place]i 65.6 >60 mL/min Calcium 8.1 (L) 8.4 - 10.4 mg/dL Albumin,Serum 3.6 3.5 - 5.0 g/dL Total Protein 6.6 6.3 - 8.2 g/dL Total Bilirubin 0.5 0.2 - 1.3 mg/dL Alkaline Phosphatase 57 38 - 126 U/L ALT 31 0 - 49 U/L AST 44 15 - 46 U/L Hemogram (CBC) w/Auto Diff Collection Time: 06/08/20 5:02 PM Result Value Ref Range WBC 8.1 3.6 - 10.7 10*3/uL RBC 5.37 4.40 - 5.90 10*6/uL Hemoglobin 15.5 13.0 - 18.0 g/dL Hematocrit 45.0 40.0 - 52.0 % MCV 83.8 80.0 - 98.0 fL MCH 28.8 26.0 - 34.0 pg MCHC 34.4 32.0 - 36.0 % RDW 14.5 11.5 - 14.5 % Platelets 215 140 - 440 10*3/uL MPV 6.6 (L) 7.4 - 10.4 fL Granulocytes % 64.4 40.0 - 80.0 % Lymphocyte % 24.1 20.0 - 40.0 % Monocytes 7.1 2.0 - 10.0 % Eosinophils 3.4 1.0 - 6.0 % Basophils 1.0 0.0 - 2.0 % Absolute Neut # 5.2 1.8 - 7.0 10*3/uL Absolute Lymph # 2.0 1.0 - 4.3 10*3/uL Absolute Perry # 0.6 0.0 - 0.8 10*3/uL Absolute Eos # 0.3 0.0 - 0.5 10*3/uL Absolute Baso # 0.1 0.0 - 0.2 10*3/uL Lipase Collection Time: 06/08/20 5:02 PM Result Value Ref Range Lipase 88 23 - 300 U/L Urinalysis Collection Time: 06/08/20 5:02 PM Result Value Ref Range Glucose, Ur 30 Normal (<70) mg/dL Total Protein, Urine 300 (A) Negative mg/dL Bilirubin Urine Negative Negative mg/dL Urobilinogen, Urine Normal Normal (0-1) mg/dL pH, Urine 6.0 5.0 - 8.0 NA Specific Kirwin, Urine 1.015 1.005 - 1.030 NA Occult Blood,Urine 0.06 (A) Negative mg/dL Ketones, Urine Negative Negative mg/dL Nitrite, Urine Negative Negative NA LEUKOCYTES, UA Negative Negative Caprice/uL Appearance Clear Clear NA Color, Urine Light-Yellow Lt. Yellow NA RBC, UA 3-5 (A) 0 - 2 /[HPF] WBC, UA 0-2 0 - 5 /[HPF] Mucous Threads Few Negative /[LPF] AMORPHOUS CRYSTAL Few (A) Negative /[HPF] Hyaline Casts, UA 3-5 (A) Negative /[LPF] Magnesium Collection Time: 06/08/20 5:02 PM Result Value Ref Range Magnesium 2.0 1.6 - 2.3 mg/dL Lactic Acid, Plasma Collection Time: 06/08/20 5:54 PM Result Value Ref Range Lactic Acid 1.3 0.7 - 2.0 mmol/L TYPE AND SCREEN Collection Time: 06/08/20 11:46 PM Result Value Ref Range ABO Grouping O NA Rh Type POS NA Antibody Screen NEG NA Basic Metabolic Panel w/ Reflex to MG Collection Time: 06/09/20 4:16 AM Result Value Ref Range Sodium 139 135 - 145 mmol/L Potassium 3.6 3.5 - 5.1 mmol/L Chloride 105 98 - 107 mmol/L CO2 29 22 - 30 mmol/L Anion Gap 5 3 - 13 mmol/L Glucose 145 (H) 70 - 100 mg/dL BUN 15 7 - 20 mg/dL CREATININE 1.21 0.52 - 1.25 mg/dL eGFR 76.7 >60 mL/min EGFR IF NonAfrican [place] 66.2 >60 mL/min Calcium 7.6 (L) 8.4 - 10.4 mg/dL CBC auto differential Collection Time: 06/09/20 4:16 AM Result Value Ref Range WBC 7.1 3.6 - 10.7 10*3/uL RBC 4.91 4.40 - 5.90 10*6/uL Hemoglobin 14.0 13.0 - 18.0 g/dL Hematocrit 41.6 40.0 - 52.0 % MCV 84.8 80.0 - 98.0 fL MCH 28.4 26.0 - 34.0 pg MCHC 33.5 32.0 - 36.0 % RDW 14.4 11.5 - 14.5 % Platelets 205 140 - 440 10*3/uL MPV 6.3 (L) 7.4 - 10.4 fL Granulocytes % 58.4 40.0 - 80.0 % Lymphocyte % 27.1 20.0 - 40.0 % Monocytes 8.9 2.0 - 10.0 % Eosinophils 4.7 1.0 - 6.0 % Basophils 0.9 0.0 - 2.0 % Absolute Neut # 4.1 1.8 - 7.0 10*3/uL Absolute Lymph # 1.9 1.0 - 4.3 10*3/uL Absolute Perry # 0.6 0.0 - 0.8 10*3/uL Absolute Eos # 0.3 0.0 - 0.5 10*3/uL Absolute Baso # 0.1 0.0 - 0.2 10*3/uL ASSESSMENT/PLAN: Active Hospital Problems Diagnosis Abdominal pain [R10.9] Abdominal Pain 2/2 GI Bleed +/- Ischemia Patient recently admitted for abdominal pain, now with blood in his stool. -NPO -Maintenance IV Fluids: lactated Ringer's at 100ml/hr. -Type & Screen -Transfuse if hemoglobin below 7.0 -GI Panel -Daily CBC and BMP -H&H Q6H -Continue Protonix 40mg PO BID -Continue Bentyl 10mg PO TID QAC -Continue Carafate 1g PO QAC HS -Dilaudid 1-2mg IV Q3H (Avoid in hypotension) -Zofran 4mg IM Q6H (Watch QTc) -Gastroenterology Consult Membranous Nephropathy -HOLD Lasix 40mg PO daily -Daily Weights -Strict I/Os -Consult Nephrology Cervical Spondylosis -Lidocaine Patch 4% FEN/GI/DVT: IVF: Lactated Ringer's @ 100ml/hr Electrolytes: Monitor and replace per protocols Diet: NPO GI PPX: On PPI for GERD DVT Prophylaxis: SCDs Code Status: Full DISPOSITION: Specialist recommendations -Rohan Hoover MD Family Medicine * Selene Sheets MD - 06/09/2020 7:18 AM EST Medical Teaching Service Progress Note Patient: Sophie Hicks : 1965 Acct: [id number] PCP: Naima Rodriguez MD Admitting Physician: Francisco J Saavedra MD Admission Date: 06/08/2020 Admitting Diagnosis: Abdominal pain [R10.9] Unit/Bed: 152/1521 Hospital Day: 0 Code Status: Full Code Overnight Events: N/A Subjective: Sophie Hicks was seen and examined, awake in bed. He reports being able to sleep somewhat last night. His pain is still present, but is under better control this morning. He had no other questions/concerns. Denies Chest Pain, Shortness of Breath, Nausea, Vomiting, Diarrhea, Constipation and Dysuria Objective: Vitals: 06/08/208 06/08/20 2253 06/08/20 2255 06/08/20 2337 BP: 102/82 (!) 145/87 Pulse: 86 91 90 95 Resp: 16 18 20 Temp: 98 F (36.7 C) TempSrc: Temporal SpO2: 98% 95% 98% 93% Weight: Height: No intake or output data in the 24 hours ending 06/09/20 0106 Physical Exam Vitals signs and nursing note reviewed. Constitutional: Appearance: He is well-developed. He is obese. He is not ill-appearing. HENT: Head: Normocephalic and atraumatic. Right Ear: External ear normal. Left Ear: External ear normal. Nose: Nose normal. Mouth/Throat: Mouth: Mucous membranes are moist. Pharynx: Oropharynx is clear. Eyes: Extraocular Movements: Extraocular movements intact. Neck: Musculoskeletal: Normal range of motion and neck supple. Cardiovascular: Rate and Rhythm: Normal rate and regular rhythm. Heart sounds: Normal heart sounds. No murmur. No friction rub. No gallop. Pulmonary: Effort: Pulmonary effort is normal. No respiratory distress. Breath sounds: Normal breath sounds. No stridor. No wheezing or rales. Chest: Chest wall: No tenderness. Abdominal: General: Abdomen is flat. There is distension. Palpations: Abdomen is soft. There is no mass. Tenderness: There is abdominal tenderness (Diffusely tender to palpation in all four quadrants). There is no guarding or rebound. Musculoskeletal: Normal range of motion. Skin: General: Skin is warm and dry. Neurological: General: No focal deficit present. Mental Status: He is alert and oriented to person, place, and time. Mental status is at baseline. Psychiatric: Mood and Affect: Mood normal. Conte: No Drains: No Central Line/Port: No Diet: Diet NPO Effective Now Exceptions are: Sips of Water with Meds Medications: dicyclomine 10 mg Oral TID AC pantoprazole 40 mg Oral BID WC sucralfate 1 g Oral 4 times per day sodium chloride flush 10 mL Intravenous 2 times per day enoxaparin 40 mg Subcutaneous Daily lidocaine 1 patch Transdermal Daily Continuous Infusions: lactated ringers 100 mL/hr at 06/08/20 2358 PRN Meds:sodium chloride flush, promethazine OR ondansetron, polyethylene glycol, acetaminophenOR acetaminophen, HYDROmorphone Labs: Recent Results (from the past 24 hour(s)) Comprehensive Metabolic Panel Collection Time: 06/08/20 5:02 PM Result Value Ref Range Sodium 136 135 - 145 mmol/L Potassium 3.9 3.5 - 5.1 mmol/L Chloride 103 98 - 107 mmol/L CO2 27 22 - 30 mmol/L Anion Gap 6 3 - 13 mmol/L Glucose 162 (H) 70 - 100 mg/dL BUN 14 7 - 20 mg/dL CREATININE 1.22 0.52 - 1.25 mg/dL eGFR 76.0 >60 mL/min EGFR IF NonAfrican [place] 65.6 >60 mL/min Calcium 8.1 (L) 8.4 - 10.4 mg/dL Albumin,Serum 3.6 3.5 - 5.0 g/dL Total Protein 6.6 6.3 - 8.2 g/dL Total Bilirubin 0.5 0.2 - 1.3 mg/dL Alkaline Phosphatase 57 38 - 126 U/L ALT 31 0 - 49 U/L AST 44 15 - 46 U/L Hemogram (CBC) w/Auto Diff Collection Time: 06/08/20 5:02 PM Result Value Ref Range WBC 8.1 3.6 - 10.7 10*3/uL RBC 5.37 4.40 - 5.90 10*6/uL Hemoglobin 15.5 13.0 - 18.0 g/dL Hematocrit 45.0 40.0 - 52.0 % MCV 83.8 80.0 - 98.0 fL MCH 28.8 26.0 - 34.0 pg MCHC 34.4 32.0 - 36.0 % RDW 14.5 11.5 - 14.5 % Platelets 215 140 - 440 10*3/uL MPV 6.6 (L) 7.4 - 10.4 fL Granulocytes % 64.4 40.0 - 80.0 % Lymphocyte % 24.1 20.0 - 40.0 % Monocytes 7.1 2.0 - 10.0 % Eosinophils 3.4 1.0 - 6.0 % Basophils 1.0 0.0 - 2.0 % Absolute Neut # 5.2 1.8 - 7.0 10*3/uL Absolute Lymph # 2.0 1.0 - 4.3 10*3/uL Absolute Perry # 0.6 0.0 - 0.8 10*3/uL Absolute Eos # 0.3 0.0 - 0.5 10*3/uL Absolute Baso # 0.1 0.0 - 0.2 10*3/uL Lipase Collection Time: 06/08/20 5:02 PM Result Value Ref Range Lipase 88 23 - 300 U/L Urinalysis Collection Time: 06/08/20 5:02 PM Result Value Ref Range Glucose, Ur 30 Normal (<70) mg/dL Total Protein, Urine 300 (A) Negative mg/dL Bilirubin Urine Negative Negative mg/dL Urobilinogen, Urine Normal Normal (0-1) mg/dL pH, Urine 6.0 5.0 - 8.0 NA Specific Kirwin, Urine 1.015 1.005 - 1.030 NA Occult Blood,Urine 0.06 (A) Negative mg/dL Ketones, Urine Negative Negative mg/dL Nitrite, Urine Negative Negative NA LEUKOCYTES, UA Negative Negative Caprice/uL Appearance Clear Clear NA Color, Urine Light-Yellow Lt. Yellow NA RBC, UA 3-5 (A) 0 - 2 /[HPF] WBC, UA 0-2 0 - 5 /[HPF] Mucous Threads Few Negative /[LPF] AMORPHOUS CRYSTAL Few (A) Negative /[HPF] Hyaline Casts, UA 3-5 (A) Negative /[LPF] Magnesium Collection Time: 06/08/20 5:02 PM Result Value Ref Range Magnesium 2.0 1.6 - 2.3 mg/dL Lactic Acid, Plasma Collection Time: 06/08/20 5:54 PM Result Value Ref Range Lactic Acid 1.3 0.7 - 2.0 mmol/L ASSESSMENT/PLAN: Active Hospital Problems Diagnosis Abdominal pain [R10.9] Abdominal Pain 2/2 GI Bleed +/- Ischemia Patient recently admitted for abdominal pain, now with blood in his stool. -NPO -Maintenance IV Fluids: lactated Ringer's at 100ml/hr. -Type & Screen -Transfuse if hemoglobin below 7.0 -GI Panel -Daily CBC and BMP -H&H Q6H -Continue Protonix 40mg PO BID -Continue Bentyl 10mg PO TID QAC -Continue Carafate 1g PO QAC HS -Dilaudid 1-2mg IV Q3H (Avoid in hypotension) -Zofran 4mg IM Q6H (Watch QTc) -Gastroenterology Consult Membranous Nephropathy -HOLD Lasix 40mg PO daily -Daily Weights -Strict I/Os -Consult Nephrology Cervical Spondylosis -Lidocaine Patch 4% FEN/GI/DVT: IVF: Lactated Ringer's @ 100ml/hr Electrolytes: Monitor and replace per protocols Diet: NPO GI PPX: On PPI for GERD DVT Prophylaxis: SCDs Code Status: Full DISPOSITION: Specialist recommendations -Rohan Hoover MD Family Medicine I have personally seen the patient and performed a physical exam. I have discussed the patient withthe resident and attending. I have reviewed the note and agree with the assessment and plan as documented above with my changes documented in blue font. Selene Sheets MD 06/09/2020 9:28 AM * Rajesh Hicks RN - 06/09/2020 6:47 AM EST Pt alert and oriented laying in bed watching tv, waiting for the physician to come and see him. * Rajesh Hicks RN - 06/09/2020 6:40 AM EST Pt ask me to sent the doctor a message asking if he is able to get his lasix iv and not oral, he stated they work better that way. This nurse sent Dr. Hoover via secure message, waiting for orders or a response. documented in this encounter* Ruby Mckinney RN - 05/01/2020 3:37 PM EST Per pt had a BM. * Chante Daugherty RCP - 05/01/2020 12:19 PM EST [facility] Progress Note SpO2 at rest on RA = 94% HR at rest = 78 SpO2 with ambulation on RA = 96% Peak HR = 104 Distance Walked = 80 feet Qualify for home O2 Y/N = NO * Cydney Farrar - 05/01/2020 9:06 AM EST Nutrition rescreen completed. Patient assigned a level 1. * Mann Hanson RCP - 05/01/2020 4:42 AM EST EKG completed and placed in frony of patient's chart. * Susan Chapin RN - 05/01/2020 2:00 AM EST Patient continues to complain of 9/10 chest pain. Troponin levels negative. Requesting Morphine Q4 hrs for pain. Dr. Adrienne pereira served. Asked whether he wants patient on telemetry or any further follow-up? Will continue to monitor. * Lucy Roldan RN - 04/30/2020 6:25 PM EST Sophie received his remdesivir today. Received two doses of Morphine for a headache. Otherwise, has tolerated room air and independent in room. * Beto Hills MD - 04/30/2020 7:31 AM EST Hospitalist Progress Note 04/30/2020 7:31 AM [phone]: Please page me [phone] for patient care issues. [phone]: Please page [facility] night Hospitalist for any issues. Subjective: Admit Date: 04/29/2020 PCP: VANESSA MCGUIRE MD Interval History: Seen with proper PPE. Feeling better. Continues to be on room air but with ARMENTA. Wheezes and suffocations feeling also diminished. Explained treatment of Remdesivir in detail with patient. No overnight issues. Denies chest pain, sob, abdominal pain, nausea, vomiting, diarrhea, constipation, fevers, or chills. DIET GENERAL; Patient Vitals for the past 96 hrs (Last 3 readings): Weight 04/29/20 1548 (!) 345 lb (156.5 kg) 04/29/20 1058 (!) 345 lb (156.5 kg) In: - Out: 725 [Urine:725] Medications: remdesivir IVPB 100 mg Intravenous Q24H aspirin 81 mg Oral Daily sodium chloride flush 10 mL Intravenous 2 times per day enoxaparin 30 mg Subcutaneous BID dexamethasone 6 mg Oral Daily Vitamin D 2,000 Units Oral Daily influenza virus vaccine 0.5 mL Intramuscular Prior to discharge LABS: CBC: Recent Labs 04/29/20 1223 04/30/20 0420 WBC 5.2 3.3* RBC 5.23 5.23 HGB 14.9 14.9 HCT 43.7 44.5 MCV 83.6 84.9 RDW 14.1 14.2 PLT 181 185 BMP: Recent Labs 04/29/20 1223 04/30/20 0420 NA 134* 133* K 3.9 4.4 CL 103 107 CO2 25 21* BUN 17 20 CREATININE 1.31* 1.23 GLUCOSE 110* 144* CALCIUM 7.6* 7.5* ANIONGAP 5 5 LIVER PROFILE: Recent Labs 04/29/20 1223 04/30/20 0420 AST 40 37 ALT 24 21 BILITOT 0.4 0.5 ALKPHOS 53 54 LABALBU 2.7* 2.6* PROT 5.8* 6.0* PT/INR: No results for input(s): PROTIME, INR in the last 72 hours. CARDIAC ENZYMES: Recent Labs 04/29/20 1223 04/30/20 0420 TROPONINI <0.012 <0.012 Procalcitonin: Lab Results Component Value Date PROCAL 0.10 04/29/2020 Glucose: No results for input(s): POCGLU in the last 72 hours. Objective: Vitals: BP (!) 159/88 Pulse 80 Temp 97 F (36.1 C) (Temporal) Resp 19 Ht 6' 1 (1.854 m) Wt (!) 345 lb (156.5 kg) SpO2 95% BMI 45.52 kg/m Pulse Ox: SpO2 Av.5 % Min: 94 % Max: 97 % Supplemental O2: General appearance: No apparent distress, appears stated age and cooperative with exam. Morbidly obese male HEENT: Normal cephalic, atraumatic without obvious deformity. Pupils equal, round, and reactive to light. Extra ocular muscles intact. Conjunctivae/corneas clear. Neck: Supple, with full range of motion. No jugular venous distention. Trachea midline. No lymphadenopathy. Respiratory: Persistent cough; Decreased inspiratory effort with rhonchi at the bases and diffuse end expiratory wheezes Cardiovascular: Regular rate and rhythm with normal S1/S2 without murmurs, rubs or gallops. Abdomen: Obese abdomen; Soft, non-tender, non-distended with normal bowel sounds. No rebound or guarding. Musculoskeletal: No clubbing, cyanosis or edema bilaterally. Full range of motion without deformity. Skin: Skin color, texture, turgor normal. No rashes or lesions. Neurologic: Neurovascularly intact without any focal sensory/motor deficits. Cranial nerves: II-XIIintact, grossly non-focal. Assessment 1. Acute Hypoxic Respiratory Insufficiency 2/2 COVID-19 - Still with conversational hypoxia on roomair; Remdesivir/ Decadron; Monitor inflammatory markers 2. Questionable Left Lung Infiltrate - Likely atelectasis; Continue COVID-19 treatment 3. Hyponatremia 4. Acute Renal Insufficiency - Improved 5. Asthma 6. CAD 7. HTN 8. Cervical Spondylosis 9. Probable DEMI/ OHS - AutoPAP overnight 10. Morbid Obesity Diagnosis Date Benign essential HTN 01/29/2015 CAD (coronary artery disease) mild - dx on cath - neg stress CS (cervical spondylosis) 12/25/2004 CERVICAL SPINE DJD History of colonic polyps 06/21/2013 repeat 2019 Insomnia 08/15/2014 Plan - Remdesivir/ Decadron - Monitor respiratory status -am labs, replace lytes prn -increase activity -DVT prophylaxis: [x] Lovenox [] Heparin [] SCDs [x] Encourage ambulation [] Already on Anticoagulation Advance Directive: Full Code Discharge planning: TBD Beto Hills MD Division of Hospitalist Medicine Inpatient Medical Services PAGER: [phone] * Beto Red MD - 04/29/2020 2:30 PM EST [facility] - Infectious Diseases Attending COVID-19 Therapeutic Progress Note Subjective: Consult/Treatment requested on this patient with testing consistent with CoV2 infection. Patient isdocumented to have hypoxia with SpO2 <=94% on room air or increase in baseline oxygen requirement during this visit. Objective: Vitals: Patient Vitals for the past 24 hrs: BP Temp Temp src Pulse Resp SpO2 Weight 04/29/20 1058 (!) 157/88 100.5 F (38.1 C) Temporal 98 20 97 % (!) 345 lb (156.5 kg) Physical Exam Due to the current efforts to prevent transmission of COVID-19 and also the need to preserve PPE for other caregivers, a imep-au-yuhh encounter with the patient was not performed. That being said, all relevant records and diagnostic tests were reviewed, including laboratory results and imaging. Please reference any relevant documentation elsewhere. Care will be coordinated with the primary service. Labs: Recent Labs 04/29/20 1223 NA 134* K 3.9 CL 103 CO2 25 BUN 17 CREATININE 1.31* GLUCOSE 110* CALCIUM 7.6* PROT 5.8* LABALBU 2.7* BILITOT 0.4 ALKPHOS 53 AST 40 ALT 24 Recent Labs 04/29/20 1223 WBC 5.2 HGB 14.9 HCT 43.7 PLT 181 GRANULOCYTES 65.6 LYMPHOPCT 21.2 MONOPCT 11.4* LABEOS 1.3 BASOPCT 0.5 NEUTROABS 3.4 No results for input(s): CRP in the last 72 hours. No results for input(s): DDIMER in the last 72 hours. No results for input(s): FERRITIN in the last 72 hours. No results for input(s): LDH in the last 72 hours. Micro: No results for input(s): COVID19 in the last 72 hours. Other CoV2 testin Resp PCr + CoV2 Other pertinent findings: NA Estimated date of symptom onset: 04/17-04/21/20 Impression: COVID19 pneumonia with hypoxia Plan: Treatment with remdesivir 200mg IV once followed by 100mg IV daily for additional four days is appropriate. Would also recommend 10 days of dexamethasone or equivalent steroid while in hospital, and may be discontinued at discharge unless needed for other treatment. Will sign off and continue to follow through COVID stewardship. Please call if needed. More that 51% total time 15 Minutes counseling (or coordinating care) and providing discussion regarding plan of care, expectations, medication plan. Beto Red MD, FACP, FIDSA P [phone] documented in this encounter* Ramón Treadwell MD - 07/25/2020 1:28 PM EDT [facility] Progress Note Subjective/ 54 y.o. year old male who we are seeing in consultation for Lower extremity edema. NAEON Mentation baseline Tremors improved AF, BP stable No sob on RA States feeling ok UOP appropriate Swelling ++ 12 points ROS done and negative unless mentioned as above No change in PFSH All data labs/interval notes and overnight issues are reviewed Objective/ Vitals: 07/24/20 2044 07/24/20 2322 07/25/20 0347 07/25/20 0836 BP: 119/73 130/79 (!) 152/77 Pulse: 94 90 89 Resp: 18 20 22 15 Temp: 96.4 F (35.8 C) 96.4 F (35.8 C) 96.7 F (35.9 C) TempSrc: Temporal Temporal Temporal SpO2: 96% 96% 98% 95% Weight: Height: 24HR INTAKE/OUTPUT: Intake/Output Summary (Last 24 hours) at 07/25/2020 1328 Last data filed at 07/25/2020 0033 Gross per 24 hour Intake Output 1000 ml Net -1000 ml Constitutional: Alert, awake, no apparent distress HEENT: no pallor/cyanosis or icterus Cardiovascular: tachycardic, S1, S2 without m/r/g Respiratory: CTA B without w/r/r Abdomen: +bs, soft, nt Ext: Pitting edema lower extremities ++ : voiding Neck: supple, no thyroid enlargement, no JVD elevation Skin: warm, moist, no rashes Data/ Recent Labs 07/23/20 1236 07/24/20 0008 07/25/20 0026 WBC 7.7 10.1 8.9 HGB 14.5 14.7 13.1 HCT 42.0 43.9 39.1* MCV 84.3 86.0 86.4 PLT 214 249 197 Recent Labs 07/23/20 1236 07/24/20 0008 07/25/20 0026 NA 137 133* 137 K 4.1 4.6 3.9 CL 105 103 105 CO2 27 21* 24 GLUCOSE 129* 331* 172* BUN 14 16 21* CREATININE 1.05 1.26* 1.26* Assessment/ - Membranous Nephropathy - Nephrotic Syndrome - Shortness of Breath (close to baseline - Lower extremity edema (close to baseline - Slurred speech (resolved) - Bilateral upper extremity weakness - HTN - GERD Plan/ - Sc at plateau. Suspect at baseline from bl 1.1, remains non-oliguric, BP stable - Volume status: hypervolemic improved - Continue cytoxan - Cont bactrim DS on MWF - Cont bumex 2 mg PO daily - left renal stone 4 mm, no hydronephrosis, bladder wall thickening on SOCORRO - avoid nephrotoxins and IV contrast - agree with IV fluids as previously ordered - other issues per the primary team - will follow/call with questions- - Ok to dc from renal stand point. Has appointment with events specialist Dr. Bauman. Ramón Treadwell * Yara Kidd MD - 07/25/2020 10:52 AM EDT Images from the original note were not included. [facility] Progress Note Sophie Hicks : 1965(54 y.o.) Date: 07/25/20 Subjective: HPI No acute overnight events. Denies lightheadedness or slurred speech. Still having tingling in both hands (more on the left). Denies chest pain, palpitations, or shortness of breath. Still has lower extremities swelling. Scheduled Meds: docusate sodium 100 mg Oral Daily sulfamethoxazole-trimethoprim 1 tablet Oral Q MWF atorvastatin 80 mg Oral Nightly bumetanide 1 mg Oral BID insulin lispro 0-12 Units Subcutaneous TID WC insulin lispro 0-6 Units Subcutaneous Nightly gabapentin 600 mg Oral TID pantoprazole 40 mg Oral BID WC sucralfate 1 g Oral 4x Daily AC & HS sodium chloride flush 5-40 mL Intravenous 2 times per day enoxaparin 40 mg Subcutaneous Daily aspirin 81 mg Oral Daily Or aspirin 300 mg Rectal Daily cyclophosphamide 150 mg Oral BID Continuous Infusions: dextrose sodium chloride PRN Meds:cyclobenzaprine, albuterol sulfate HFA, glucose, dextrose, glucagon (rDNA), dextrose, perflutren lipid microspheres, sodium chloride flush, sodium chloride flush, sodium chloride, acetaminophen OR acetaminophen, ondansetron, labetalol, polyethylene glycol, oxyCODONE Review of Systems Interval Pertinent History: Social History Tobacco Use Smoking status: Never Smoker Smokeless tobacco: Never Used Substance Use Topics Alcohol use: No Objective: Patient Vitals for the past 24 hrs: BP Temp Temp src Pulse Resp SpO2 07/25/20 0836 (!) 152/77 96.7 F (35.9 C) Temporal 89 15 95 % 07/25/20 0347 130/79 96.4 F (35.8 C) Temporal 90 22 98 % 07/24/20 2322 119/73 96.4 F (35.8 C) Temporal 94 20 96 % 07/24/20 2044 18 96 % 07/24/20 1922 119/85 97 F (36.1 C) Temporal 103 18 95 % 07/24/20 1356 136/88 Temporal 109 07/24/20 1350 20 95 % 07/24/20 1212 (!) 150/83 97.5 F (36.4 C) Temporal 105 20 96 % Average, Min, and Max for last 24 hours Vitals: TEMPERATURE: Temp Av.8 F (36 C) Min: 96.4 F (35.8 C) Max: 97.5 F (36.4 C) RESPIRATIONS RANGE: Resp Av Min: 15 Max: 22 PULSE RANGE: Pulse Av.3 Min: 89 Max: 109 BLOOD PRESSURE RANGE: Systolic (24hrs), Av , Min:119 , Max:152 ; Diastolic (24hrs), Av, Min:73, Max:88 PULSE OXIMETRY RANGE: SpO2 Av.9 % Min: 95 % Max: 98 % I/O last 3 completed shifts: In: - Out: 1000 [Urine:1000] Physical Exam Lab Results Component Value Date WBC 8.9 07/25/2020 HGB 13.1 07/25/2020 HCT 39.1 (L) 07/25/2020 MCV 86.4 07/25/2020 PLT 197 07/25/2020 Lab Results Component Value Date NA 137 07/25/2020 K 3.9 07/25/2020 CL 105 07/25/2020 CO2 24 07/25/2020 BUN 21 07/25/2020 CREATININE 1.26 07/25/2020 GLUCOSE 172 07/25/2020 CALCIUM 8.1 07/25/2020 Lab Results Component Value Date LABA1C 5.7 (A) 07/24/2020 Additional results of the last 24 hours have been reviewed. Assessment and Plan: Active Problems: DJD (degenerative joint disease) of cervical spine CAD (coronary artery disease) Benign essential HTN Morbid obesity (HCC) Nephrotic syndrome Neurological symptoms Diffuse membranous glomerulonephritis Bilateral lower extremity edema Shortness of breath Steroid-induced hyperglycemia Metabolic acidosis Mixed hyperlipidemia Peripheral edema Resolved Problems: * No resolved hospital problems. * RUE and LUE numbness: - given no acute stroke on MRI/MRA likely the presenting picture is due to neuropathy - moderate 50-60 percent stenosis in proximal ICA, discussed with patient yearly monitoring with carotid US with risk factor modifications - TTE is pending - appreciate neurology recommendations - continue ASA and Atorvastatin - MRI Cervical spine with multilevel degenerative changes, will need referral to outpatient spine orthopedics Nephrotic syndrome 2/2 diffuse membranous GN: BL lower extremities edema (improved per patient) - continue cyclophosphamide 150 mg BID and Bumex 1mg BID - appreciate nephrology recommendations - on bactrim MWF for PCP prophylaxis - RP US showed 4-5 mm left renal stone with no evidence of hydronephrosis bilaterally - will refer to outpatient urology for follow up #Hyperglycemia, likely steroid-induced - Glucose elevated this AM, most likely for IV steroids given in ED. - A1c is 5.7. SSI initiated. - would benefit from adding metformin as outpatient - hypoglycemia protocol #Dyspnea - Pt reports intermittent SOB and wheezing ever since covid infection. Recieved duonebs treatment this AM and has mild end expiratory wheezing. - CXR no acute process, no leukocytosis, afebrile, no increased O2 requirements. Will continue duonebs prn and monitor closely - likely secondary to post- COVID-19 infection deconditioning - will benefit from referral to [facility] Post-COVID 19 clinic #CAD #HTN #Mixed hyperlipidemia - Continue ASA 81mg qd. EKG w/o evidence of acute ST-T changes - Hold home lisinopril for now for permissive HTN. Okay to resume lasix due to increased b/l edema - Fasting lipid panel showing mixed hyperlipidemia. Atorvastatin increased to 80mg qd. #Suspected DEMI - Will refer for outpatient sleep study DVTProphylaxis: lovenox 40 q 24hr - creatinine clearance >30 Disposition: likely discharge home today I spent over 51% of total time providing counseling or incoordination of care: > 35 minutes discussed with nurse, patient and family updated, I personally examined the patient and I personally reviewed chart, data, labs radiology reports 6AM-6PM please page: 6PM-6AM please page: [facility] Internal Medicine * Antony Fisher, [facility] - 07/25/2020 9:34 AM EDT [facility] Department Progress Note As part of the Respiratory Assessment Program (RAP), the following Respiratory Therapist evaluationhas been completed, including a chart review and clinical/physical assessment. Respiratory Therapist RAP Evaluation Guideline Points 0 1 2 3 4 Points Strongly Consider History Factor No Pulmonary conditions Stable Pulmonary condition(s) Surgery or Intervention that may impact Pulmonary system (at risk) Surgery or Intervention that is impacting Pulmonary system Active Exacerbation of Pulmonary Condition 1 Respiratory Pattern Regular, RR= 12-18 ARMENTA or Increased RR= 19-24 Irregular, or RR= 25-30 SOB, talk in short sentences, or RR= 31-35 Severe SOB, accessory muscle use, one word answers, or RR>35 1 Aerosol Med(s), High Flow O2 Breath Sounds Clear Diminished in 1 lobe Diminished in ? 2 lobes Adventitious breath sounds Coarse crackles, Wheezes, or Diminished in >2 lobes 0 Aerosol Med(s), Bronchial Hygiene, Hyperinflation Cough & Sputum Strong cough, no secretion retention or production Weak cough, no secretion retention or production Weak cough, w/ production (less often than Q2hr), or secretion retention No cough, w/ secretion retention or production (less often than Q2hr) Significant secretion production (more often than Q2hr) or mucus plug 0 Aerosol Med(s), Bronchial Hygiene, Hyperinflation Level of Activity Ambulatory Ambulatory with Assist Up in chair or edge of bed (dangle) Non-ambulatory, bedridden with active ROM Completely paralyzed or without active ROM 1 Triage 5 0-2 Triage 4 3-5 Triage 3 6-10 Triage 2 11-14 Triage 1 ?15 Total 3 Triage Score = 4 TRIAGE SCORING SUGGESTED FREQUENCIES Aerosol Therapy Bronchial Hygiene Hyperinflation Triage Score Q4h & PRN 1 Q4hWA (QID) & PRN 2 TID & PRN 3 BID & PRN 4 PRN 5 Therapy(s) Indicated Yes/No Aerosol Medication y Hyperinflation n Bronchial Hygiene n High Flow Oxygen n PEF: Inspiratory Flow (L/sec): IVC: FVC: FEV1: FVE1/FVC: Patient instructed and returned demonstration on use of MDI (with spacer, as appropriate) Yes RT to enter/modify frequency of treatment order in EMR/EHR to match this RAP evaluation. Based on this RAP evaluation the following therapy is being initiated: duoneb At the following frequency: albuterol hfa q4 prn per pt request Comments: Thank you for involving Respiratory in the care of this patient, * Arianna Jackson - 07/25/2020 9:14 AM EDT .Nutrition rescreen completed. Chart reviewed. Patient to be monitored and followed by the diet nanotechnician..KONG Coats * Zina Ruiz, PLANT OPERATOR CONTROL ROOM OPERATOR - FERRYBOAT OPERATOR HELPER - 07/25/2020 8:19 AM EDT PROGRESS NOTE. STROKE SERVICE Patient Name:Sophie Hicks Patient : 1965 Acct: [id number] Date of Admission: 07/23/2020 Room/Bed: 1340/1340B PCP: Naima Rodriguez MD Patient location Telemetry Remains in the hospital awaiting plan on disposition, placement, Subjective:54 yo M PMH: HTN, CAD, DPL, nephrotic syndrome/glomerulonephritis had complaints of transient episode of R sided hemiparsis, facial droop, and slurred speech on 07/22/20 after waking up. LKW was 07/21/20 before going to bed. He reports that all symptoms have resolved. These symptoms occurred in the setting of BL low leg edema, SOB and abd pain. CTH completed was negative New Complaint:No documented events overnight. MRI's completed without stroke. There is multilevel DJD of the cervical spine. Today he states that he is feeling better without the symptoms that he hadbefore. Sedation:No Diet/TF:regular Conte: No VTE prophylaxis: none ordered, but okay for DVT ppx Antithrombotic therapy in first 24 hrs: Contraindicated because not a stroke Statin therapy for stroke stroke patients: High intensity Anticoagulation on AF patients: N/A no history of AF Activity: Up walking Current Hospital Medications: Current Facility-Administered Medications: cyclobenzaprine (FLEXERIL) tablet 10 mg, 10 mg, Oral, TID PRN, Joel Gutierrez MD, 10 mg at 07/25/20 0534 sulfamethoxazole-trimethoprim (BACTRIM DS;SEPTRA DS) 800-160 MG per tablet 1 tablet, 1 tablet, Oral, Q MWF, Joel Gutierrez MD atorvastatin (LIPITOR) tablet 80 mg, 80 mg, Oral, Nightly, Yara Kidd MD, 80 mg at 07/24/202014 bumetanide (BUMEX) tablet 1 mg, 1 mg, Oral, BID, Yara Kidd MD, 1 mg at 07/24/20 503 insulin lispro (HUMALOG) injection vial 0-12 Units, 0-12 Units, Subcutaneous, TID WC, April Zendlo, PA, 4 Units at 07/24/20 1408 insulin lispro (HUMALOG) injection vial 0-6 Units, 0-6 Units, Subcutaneous, Nightly, YOU Rosado, 1 Units at 07/24/202017 glucose (GLUTOSE) 40 % oral gel 15 g, 15 g, Oral, PRN, YOU Rosado dextrose 50 % IV solution, 12.5 g, Intravenous, PRN, YOU Rosado glucagon (rDNA) injection 1 mg, 1 mg, Intramuscular, PRN, YOU Rosado dextrose 5 % solution, 100 mL/hr, Intravenous, PRN, YOU Rosado perflutren lipid microspheres (DEFINITY) injection 1.65 mg, 1.5 mL, Intravenous, ONCE PRN, Zina Ruiz APRN - NASRIN sodium chloride flush 0.9 % injection 5-40 mL, 5-40 mL, Intravenous, PRN, Zina Ruiz APRN - NASRIN ipratropium-albuterol (DUONEB) nebulizer solution 1 ampule, 1 ampule, Inhalation, TID, YOU Rosado, 1 ampule at 07/24/202039 gabapentin (NEURONTIN) capsule 600 mg, 600 mg, Oral, TID, Yara Kidd MD, 600 mg at 07/24/202014 pantoprazole (PROTONIX) tablet 40 mg, 40 mg, Oral, BID , YOU Rosado, 40 mg at 07/24/202014 sucralfate (CARAFATE) tablet 1 g, 1 g, Oral, 4x Daily AC & HS, YOU Rosado, 1 g at 07/25/20 0534 sodium chloride flush 0.9 % injection 5-40 mL, 5-40 mL, Intravenous, 2 times per day, YOU Rosado, 10 mL at 07/24/202015 sodium chloride flush 0.9 % injection 5-40 mL, 5-40 mL, Intravenous, PRN, YOU Rosado 0.9 % sodium chloride infusion, 25 mL, Intravenous, PRN, YOU Rosado acetaminophen (TYLENOL) tablet 650 mg, 650 mg, Oral, Q4H PRN OR acetaminophen (TYLENOL) suppository 650 mg, 650 mg, Rectal, Q4H PRN, YOU Rosado ondansetron (ZOFRAN) injection 4 mg, 4 mg, Intravenous, Q6H PRN, YOU Rosado labetalol (NORMODYNE;TRANDATE) injection 10 mg, 10 mg, Intravenous, Q10 Min PRN, YOU Rosado polyethylene glycol (GLYCOLAX) packet 17 g, 17 g, Oral, Daily PRN, YOU Rosado enoxaparin (LOVENOX) injection 40 mg, 40 mg, Subcutaneous, Daily, YOU Rosado, 40 mg at 07/24/20 0852 aspirin EC tablet 81 mg, 81 mg, Oral, Daily, 81 mg at 07/24/20 0852 OR aspirin suppository 300 mg, 300 mg, Rectal, Daily, YOU Rosado cyclophosphamide (CYTOXAN) 50 MG capsule CAPS 150 mg, 150 mg, Oral, BID, YOU Rosado, 150 mg at 07/24/20 1800 oxyCODONE (ROXICODONE) immediate release tablet 5 mg, 5 mg, Oral, Q6H PRN, YOU Rosado, 5 mg at 07/25/20 0414 Continuous Infusions: dextrose sodium chloride Allergies: Iv contrast [iodides] Review of Systems Constitutional: Positive for activity change. HENT: Negative for congestion, dental problem and drooling. Eyes: Positive for visual disturbance. Respiratory: Positive for shortness of breath and wheezing. Cardiovascular: Positive for leg swelling. Negative for chest pain. Gastrointestinal: Positive for abdominal pain. Negative for abdominal distention, anal bleeding andblood in stool. Endocrine: Negative for cold intolerance and heat intolerance. Genitourinary: Negative for difficulty urinating, dysuria and enuresis. Musculoskeletal: Positive for gait problem. Negative for arthralgias. Neurological: Positive for facial asymmetry, speech difficulty and weakness. Negative for dizziness, tremors, seizures, syncope, light-headedness, numbness and headaches. Psychiatric/Behavioral: Negative for agitation and behavioral problems. Objective: Telemetry: Arrhythmia:No Physical Examination: Patient Vitals for the past 8 hrs: BP Temp Temp src Pulse Resp SpO2 07/25/20 0347 130/79 96.4 F (35.8 C) Temporal 90 22 98 % General Physical Examination: General: alert, comfortable, cooperative, obese and male HEENT:Normocephalic, atraumaticl CV: S1+S2, RRR, no MRG. Pulm:CTA b/l, unlabored Abdomen: Soft NT/ND. BS + Skin: Intact without ulcers, breakdowns or discoloration Extremities: No cyanosis/clubbing/edema.bilateral lower extremity edema Orthopedic limitation; N/A Pulses: Intact peripherally Carotid auscultation :No bruits Neurological Examination: Higher Functions: Mental Status Exam: Level of Alertness:Awake Orientation: Normal to self, time, place Memory: Normal Fund of Knowledge: Normal Language: Normal Dysarthria not present Cranial Nerves: -II Visual acuity: normal -II Visual pires: normal -III Pupils (~ 3 mm OD, 3 mm OU) equal, round, reactive to light -III-IV- Extraocular Movements: intact -Nystagmus present biolaterally -Saccades and pursuits normal -V Facial sensation: abnormal decreased R Corneal's Intact bilateral -VII Facial strength: abnormal decreased R with poor participation -VIII Hearing: intact -IX-X- Gag reflex present -X Palate:intact -XI Shoulder shrug: intact -XII Tongue movement: normal Funduscopic Exam: normal, no edema or exudates both eyes Motor Examination: Tone after evaluation of 4 limbs, the following findings applied: Normal -Bulk: normal -Muscle Stretchafter evaluation of all limbs, and axial musculature the following findings applied: Drift: Bilateral pronator drift of upper extremities with shoulder pain Also tenderness with palpation to cervical spine -Reflexes: after evaluation of 4 limbs, the following findings applied ; normal all limbs -Plantar responce: Flexor bilaterally 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 of 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 on the L , Coordination: Arms limited reliability of exam/ poorparticipation Legs limited reliability of exam/ poor participation Tremors not present objectively but complaints of tremors subjectively Gait abnormal, patient unable to walk due to acute circumstances / bedrest / safety concerns ANCILLARY Last 24hrs Recent Results (from the past 24 hour(s)) POCT Glucose Collection Time: 07/24/20 8:48 AM Result Value Ref Range POC Glucose 301 (H) 70 - 100 mg/dL Sodium, Urine, Random Collection Time: 07/24/20 11:33 AM Result Value Ref Range SODIUM, RANDOM URINE 79 30 - 90 mmol/L CREATININE, RANDOM URINE Collection Time: 07/24/20 11:33 AM Result Value Ref Range CREATININE, RANDOM URINE 113.7 No Range mg/dL Osmolality, Urine Collection Time: 07/24/20 11:33 AM Result Value Ref Range Osmolality, Ur 549 300 - 1000 mosm/kg PROTEIN, URINE, RANDOM Collection Time: 07/24/20 11:33 AM Result Value Ref Range Protein, Urine, Random 829 (H) No Range mg/dL Chloride, Random Urine Collection Time: 07/24/20 11:33 AM Result Value Ref Range Chloride 95 18 - 209 mmol/L Urinalysis Collection Time: 07/24/20 11:33 AM Result Value Ref Range Glucose, Ur 100 (A) Normal (<70) mg/dL Total Protein, Urine 300 (A) Negative mg/dL Bilirubin Urine Negative Negative mg/dL Urobilinogen, Urine Normal Normal (0-1) mg/dL pH, Urine 6.0 5.0 - 8.0 NA Specific [place], Urine 1.014 1.005 - 1.030 NA Occult Blood,Urine 0.2 (A) Negative mg/dL Ketones, Urine Negative Negative mg/dL Nitrite, Urine Positive (A) Negative NA LEUKOCYTES, UA Negative Negative Caprice/uL Appearance Clear Clear NA Color, Urine Light-Yellow Lt. Yellow NA RBC, UA 0-2 0 - 2 /[HPF] WBC, UA 3-5 0 - 5 /[HPF] Squam Epithel, UA 0-2 3 - 5 /[HPF] Bacteria, UA Few (A) Negative /[HPF] Mucous Threads Few Negative /[LPF] Hyaline Casts, UA Negative Negative /[LPF] POCT Glucose Collection Time: 07/24/20 1:53 PM Result Value Ref Range POC Glucose 229 (H) 70 - 100 mg/dL POCT Glucose Collection Time: 07/24/20 5:38 PM Result Value Ref Range POC Glucose 182 (H) 70 - 100 mg/dL POCT Glucose Collection Time: 07/24/20 8:00 PM Result Value Ref Range POC Glucose 184 (H) 70 - 100 mg/dL Comprehensive Metabolic Panel w/ Reflex to MG Collection Time: 07/25/20 12:26 AM Result Value Ref Range Sodium 137 135 - 145 mmol/L Potassium 3.9 3.5 - 5.1 mmol/L Chloride 105 98 - 107 mmol/L CO2 24 22 - 30 mmol/L Anion Gap 8 3 - 13 mmol/L Glucose 172 (H) 70 - 100 mg/dL BUN 21 (H) 7 - 20 mg/dL CREATININE 1.26 (H) 0.52 - 1.25 mg/dL eGFR 73.0 >60 mL/min EGFR IF NonAfrican [place] 63.0 >60 mL/min Calcium 8.1 (L) 8.4 - 10.4 mg/dL Albumin,Serum 3.3 (L) 3.5 - 5.0 g/dL Total Protein 5.8 (L) 6.3 - 8.2 g/dL Total Bilirubin 0.4 0.2 - 1.3 mg/dL Alkaline Phosphatase 62 38 - 126 U/L ALT 20 0 - 49 U/L AST 30 15 - 46 U/L CBC Collection Time: 07/25/20 12:26 AM Result Value Ref Range WBC 8.9 3.6 - 10.7 10*3/uL RBC 4.52 4.40 - 5.90 10*6/uL Hemoglobin 13.1 13.0 - 18.0 g/dL Hematocrit 39.1 (L) 40.0 - 52.0 % MCV 86.4 80.0 - 98.0 fL MCH 29.0 26.0 - 34.0 pg MCHC 33.5 32.0 - 36.0 % RDW 14.4 11.5 - 14.5 % Platelets 197 140 - 440 10*3/uL MPV 6.4 (L) 7.4 - 10.4 fL Coagulation: Recent Labs 07/23/20 1236 INR 0.9 Stroke Specific: Lipids: Recent Labs 07/24/20 0008 CHOL 215* LDLCHOLESTEROL 128* TRIG 260* HDL 35* HgA1c: Recent Labs 07/24/20 0008 LABA1C 5.7* Radiology Personal review: EKG 07/23/20: Measurements Intervals [place] Rate: 87 P: 13 IN: 149 QRS: 32 QRSD: 98 T: 118 QT: 345 QTc: 415 Interpretive Statements Sinus rhythm Abnormal T, consider ischemia, lateral leads EKG #2 07/23/20: Measurements Intervals [place] Rate: 109 P: 1 IN: 168 QRS: 20 QRSD: 78 T: 132 QT: 299 QTc: 403 Interpretive Statements Sinus tachycardia Nonspecific T abnormalities, lateral leads ECHO :pending CTH 07/23/20: IMPRESSION: No acute brain process identified. MRI Brain 07/24/20:IMPRESSION: 1. No acute infarct. 2. No cerebral edema, mass effect or evidence ofintracranial mass. 3. Moderate narrowing of approximately 50-60 percent of the bilateral proximal internal carotid arteries versus changes related to motion artifact. Recommend repeat contrast enhanced MRA or CTA of the neck. 4. No hemodynamically significant narrowing of the major arteries of the [place] or posterior circulation. 5. Scattered foci of T2/FLAIR hyperintense signal within the cerebral white matter, which are nonspecific. Findings can be seen with microangiopathy, migraine syndrome or demyelinating disease amongst other etiologies. IMPRESSION: 1. Multilevel cervical laminectomy and fusion with examination limitations as described. 2. Mild degenerative disc disease at C2-C3 and C6-C7 with disc bulges. Mild flattening of the ventral aspect of the spinal cord at C6-C7. 3. Limited evaluation of the neural foramina at the fused levels due to artifact from the pedicle screws without obvious neural foraminal narrowing. 4. See above comments for detailed description of findings. ASSESSMENT / PLAN/RECOMMENDATIONS: Transient episode of R sided hemiparesis/facial droop -Now with L sided complaints -NOT A STROKE OR TIA -althought multiple vascular risk factors these symptoms seem to be cervical pathology, would continue to optimize risk factors -SBP <140 -ECHO defer to primary -aspirin 81 -atorvastatin 40 (if pt agreeable) -optimal hydration -speech -PT/OT -Optimization of vascular risk factors as stated below Multilevel DJD of cervical spine/Hx of cervical spine surgery -symptomatic -follow outpatient with Dr Victoria -recommend PT/OT Asymptomatic bilateral carotid artery disease -50-60% -recommend yearly CUS HTN -Goal as mentioned above CAD -followed by primary -statin as mentioned above Dyslipidemia -statin as mentioned above -The patient is asked to make an attempt to improve diet and exercise patterns to aid in medical management of this problem. Hyperglycemia -A1C 5.7 -The patient is asked to make an attempt to improve diet and exercise patterns to aid in medical management of this problem. Nephrotic syndrome -2/2 diffuse membranous glomerulonephritis -okay for home lasix -okay for home cyclophosamide -avoid nephrotoxic medications -nephro consult BL lower leg weakness/swelling -baseline -PT/OT Abd pain -management per primary Morbid Obesity -Encourage diet and lifestyle modifications -bariatrics Presumed DEMI -recommend sleep study Not a stroke or TIA, symptoms likely related to cervical pathology although he does have significant vascular risk factors for stroke and we would suggest to optimize those. Recommend NSGY Dr Victoria who did his previous surgery to follow up for symptomatic cervical spine issues. Will sign off, no further neuro recommendations. Please let us know if you have any further questions or concerns. Patient seen and discussed with Dr. Anderson * Yaya Hou, PT - 07/24/2020 3:56 PM EDT Physical Therapy Facility/Department: [facility] 3W TELEMETRY Discharge Recommendations: Home with assist PRN, Outpatient PT What is written below is in addendum to evaluation of Mann Ruiz, SPT dated 07/24 Assessment Assessment: Will add pt back to schedule and will attempt to ambulate w/o device. If disch were today would recommend FWW for homegoing. Continue to recommend home with outpatient PT REQUIRES PT FOLLOW UP: Yes Goals Short term goals Time Frame for Short term goals: 1 week Short term goal 1: Amb w/o device 200' supv Short term goal 2: DGI w/o device, or greater Short term goal 3: If pt chooses to use device, 400', modif indep. Plan Plan Times per week: 5 Plan weeks: 1 Current Treatment Recommendations: Balance Training, Gait Training Plan Comment: PT disch. Safety Devices Type of devices: All fall risk precautions in place, Left in chair, Call light within reach, Nurse notified, Gait belt(RN stated no need for chair alarm placement.) Restraints Initially in place: No Therapy Time Individual Concurrent Group Co-treatment Time In 0834 Time Out 0859 Minutes 25 Yaya Hou PT * Teresa Zarate RCP - 07/24/2020 10:24 AM EDT Patient Evaluation Form The patient is currently receiving Duoneb QID Points 0 1 2 3 4 Points Totals Pulmonary Status (-/+) History Smoking history < 20 pack years Smoking history > 20 pack years Pulmonary Disorder (acute or chronic) Severe or Chronic with Exacerbation 3 Surgical Status No Surgery Trach PEG General Surgery Lower Abdominal Thoracic or Upper Abdominal Thoracic with Pulmonary Disorder 0 Chest X-ray Clear None Ordered Chronic Changes CXR results Pending Infiltrates, atelectasis, pleural effusion, or edema Infiltrates in more than one lobe Infiltrate + Atelectasis, &/or pleural effusion 0 Respiratory Pattern Regular, RR = 12-20 Increased, RR = 21-25 ARMENTA, irregular, or RR = 26-30 Decreased FEV1 or RR = 31-35 Severe SOB, used of of accessory muscles, or RR = > 35 2 Mental Status Alert, oriented, cooperative Confused, but follows commands Lethargic or un-able to follow commands Obtunded Comatose 0 Breath Sounds Clear to auscultation Decreased unilaterally or in bases only Decreased bilaterally Crackles or intermittent wheezes Wheezes 1 Cough Strong, spontaneous, & nonproductive Strong, spontaneous, & productive Weak, nonproductive Weak, productive or with wheezes No spontaneous cough or may require suctioning 0 Level of Activity Ambulatory Ambulatory with Assist Non-ambulatroy Paraplegic Quadriplegic 1 Triage 1 > 20 pts Triage 2 16-20 pts Triage 3 11- 15 pts Triage 4 6 - 10 pts Triage 5 0 - 5 pts TOTAL POINTS = 7 Triage Score = 4 PEF: FVC: FEV1: FVE1/FVC: Patient instructed and returned demonstration on use of MDI no Changing Therapy to Duoneb TID * April Herrera PA - 07/24/2020 10:12 AM EDT Images from the original note were not included. [facility] Progress Note Sophie Hicks : 1965(54 y.o.) Date: 07/24/20 Subjective: HPI Pt states that today he is having numbness and weakness in his LUE. He states that he had rotator cuff surgery on his left side in the past and has also had his neck fused. As reports having a tremorin his right had after his breathing treatment. Still reports that his feet are numb and have been for the past 3-4 months. States he has abdominal pain but states he has had it for a while and contributes it to all the medications he takes. Still having a headache he has had off and on for the last month. Still reporting blurred vision in both eyes. Denies cough, chest pain, SOB, n/v, or changesin bowel or bladder habits. Denies changes in LE edema. Asked when getting his MRI if he could get ativan for anxiety and pain medications for his L shoulder. Agree with above. Pt states RUE numbness and tingling has improved however last night felt a shooting pain down the LUE that eventually changed to numbness/ tingling of the hand and digits. This morning he tells me that has improved. C/o b/l UE tremor that began following breathing treatment. I independently performed the history and physical examination of the patient and discussed the management with the PA student. I reviewed the PA student's note and agree with findings with additionsnoted in italics. 7AM-4PM Please Perfect serve April Herrera PA-C Scheduled Meds: [START ON 07/25/2020] sulfamethoxazole-trimethoprim 1 tablet Oral Q MWF atorvastatin 80 mg Oral Nightly bumetanide 1 mg Oral BID insulin lispro 0-12 Units Subcutaneous TID WC insulin lispro 0-6 Units Subcutaneous Nightly ipratropium-albuterol 1 ampule Inhalation TID gabapentin 400 mg Oral TID pantoprazole 40 mg Oral BID WC sucralfate 1 g Oral 4x Daily AC & HS sodium chloride flush 5-40 mL Intravenous 2 times per day enoxaparin 40 mg Subcutaneous Daily aspirin 81 mg Oral Daily Or aspirin 300 mg Rectal Daily cyclophosphamide 150 mg Oral BID Continuous Infusions: dextrose sodium chloride PRN Meds:glucose, dextrose, glucagon (rDNA), dextrose, perflutren lipid microspheres, sodium chloride flush, LORazepam, sodium chloride flush, sodium chloride, acetaminophen OR acetaminophen, ondansetron, labetalol, polyethylene glycol, oxyCODONE Review of Systems Constitutional: Negative for chills and fever. Eyes: Positive for visual disturbance. Respiratory: Positive for shortness of breath. Negative for cough. Cardiovascular: Positive for leg swelling. Negative for chest pain. Gastrointestinal: Positive for abdominal pain. Negative for constipation, diarrhea, nausea and vomiting. Genitourinary: Negative for difficulty urinating and dysuria. Musculoskeletal: Positive for back pain (Chronic). Neurological: Positive for tremors (Right hand), facial asymmetry, numbness and headaches. Negativefor dizziness, seizures, syncope, speech difficulty, weakness and light-headedness. Pt complains of b/l UE tremor after breathing treatment this AM. Interval Pertinent History: Social History Tobacco Use Smoking status: Never Smoker Smokeless tobacco: Never Used Substance Use Topics Alcohol use: No Objective: Patient Vitals for the past 24 hrs: BP Temp Temp src Pulse Resp SpO2 Height 07/24/20 1350 20 95 % 07/24/20 1212 (!) 150/83 97.5 F (36.4 C) Temporal 105 20 96 % 07/24/20 0915 20 95 % 07/24/20 0330 121/76 95.9 F (35.5 C) Temporal 98 18 94 % 07/23/20 2314 (!) 180/124 96.8 F (36 C) Temporal 122 18 98 % 07/23/20 2205 95 % 07/23/20 2130 6' 0.99 (1.854 m) 07/23/20 2121 (!) 145/90 97.4 F (36.3 C) Temporal 110 18 96 % 07/23/20 1720 99 18 94 % 07/23/20 1606 (!) 155/89 104 20 95 % 07/23/20 1517 (!) 154/88 98 20 96 % 07/23/20 1437 94 18 95 % 07/23/20 1415 18 95 % Average, Min, and Max for last 24 hours Vitals: TEMPERATURE: Temp Av.9 F (36.1 C) Min: 95.9 F (35.5 C) Max: 97.5 F (36.4 C) RESPIRATIONS RANGE: Resp Av.9 Min: 18 Max: 20 PULSE RANGE: Pulse Av.8 Min: 94 Max: 122 BLOOD PRESSURE RANGE: Systolic (24hrs), Av , Min:121 , Max:180 ; Diastolic (24hrs), Av, Min:76, Max:124 PULSE OXIMETRY RANGE: SpO2 Av.3 % Min: 94 % Max: 98 % I/O last 3 completed shifts: In: 10 [I.V.:10] Out: 1850 [Urine:1850] Physical Exam Constitutional: General: He is not in acute distress. Appearance: He is obese. He is not ill-appearing. Comments: Appears anxious HENT: Mouth/Throat: Mouth: Mucous membranes are moist. Eyes: Extraocular Movements: Extraocular movements intact. Pupils: Pupils are equal, round, and reactive to light. Cardiovascular: Rate and Rhythm: Normal rate and regular rhythm. Pulses: Normal pulses. Heart sounds: Normal heart sounds. Pulmonary: Effort: Pulmonary effort is normal. Breath sounds: Wheezing (End expiratory) present. Abdominal: General: Bowel sounds are normal. Palpations: Abdomen is soft. Tenderness: There is abdominal tenderness. Musculoskeletal: Right lower leg: Edema (+1) present. Left lower leg: Edema (+1) present. Skin: General: Skin is warm and dry. Neurological: Mental Status: He is alert and oriented to person, place, and time. Cranial Nerves: Facial asymmetry (R-sided facial droop) present. Sensory: Sensory deficit (Decreased sensation of LUE) present. Motor: Weakness (LUE) and tremor (LUE) present. Coordination: Zfcojq-Nors-Qabcng Test normal. Psychiatric: Behavior: Behavior normal. General: Anxious-appearing adult male pacing around room at time of exam. HEENT: normocephalic and atraumatic, PERRL, MMM, no JVD. EOM intact Cards: RRR, no M/R/G Pulm: Lungs CTAB, no wheezes, rhonchi, on RA, no conversational dyspnea Abdominal: Soft, non-tender , +BS x 4 Extremities: 1+ pitting edema of the b/l LE's, DP pulses 2+ b/l Neuro: A&Ox3, strength intact in UE's and LE's b/l. Sensation of the lateral aspect of b/l UE'smildly diminished, R-sided facial droop Skin: no rashes, no lesions Psych: anxious mood Lab Results Component Value Date WBC 10.1 07/24/2020 HGB 14.7 07/24/2020 HCT 43.9 07/24/2020 MCV 86.0 07/24/2020 PLT 249 07/24/2020 Lab Results Component Value Date NA 133 07/24/2020 K 4.6 07/24/2020 CL 103 07/24/2020 CO2 21 07/24/2020 BUN 16 07/24/2020 CREATININE 1.26 07/24/2020 GLUCOSE 331 07/24/2020 CALCIUM 8.9 07/24/2020 Lab Results Component Value Date LABA1C 5.7 (A) 07/24/2020 Additional results of the last 24 hours have been reviewed. Assessment and Plan: Active Problems: DJD (degenerative joint disease) of cervical spine CAD (coronary artery disease) Benign essential HTN Morbid obesity (HCC) Nephrotic syndrome Neurological symptoms Diffuse membranous glomerulonephritis Bilateral lower extremity edema Shortness of breath Steroid-induced hyperglycemia Metabolic acidosis Mixed hyperlipidemia Resolved Problems: * No resolved hospital problems. * #RUE and new LUE numbness ? 2/2 TIA/ stroke vs. AoC cervical DJD - CT head negative for acute process. EKG appears NSR - Stroke order set: NPO until swallow eval, PT/OT eval, continue fall precautions, monitor I's and O's, and monitor tele and NIHSS checks. - Fasting lipid panel and A1c obtained. - Continue home ASA 81mg daily. Atorvastatin increased to 80mg qd. - Stroke service consulted, appreciate recs - Suspect transient UE numbness and tingling 2/2 AoC Cervical DJD vs TIA/ stroke. Checking MRI/ MRAand TTE per stroke #Hx Nephrotic syndrome 2/2 diffuse membranous glomerulonephritis #Increased b/l LE edema from baseline - Continue home cyclophosphamide 150mg BID - Bumex 1mg BID being given for edema. - Avoid NSAIDs and nephrotoxic medications - Pt reports increased swelling from baseline despite compliance with home lasix, nephrology consulted, known to Dr. Bauman - Nephrology recommending starting Bactrim DS on MWF and checking renal ultrasound. Appreciate recs. - Cr appears near baseline of 1.1-1.2, will hold on fluids for now as patient is tolerating PO. Continue home cyclophosphamide and bactrim prophylaxis. Lasix switched to bumex 1mg BID for b/l LE edema. Checking renal ultrasound. Nephrology following #Hyperglycemia, likely steroid-induced - Glucose elevated this AM, most likely for IV steroids given in ED. - A1c is 5.7. SSI initiated. - Encouraged lifestyle changes to mitigate diabetes risk. Started medium dose SSI, watch blood sugars closely as patient is no longer receiving steroids. Hypoglycemia treatment per protocol #Dyspnea - Pt reports intermittent SOB and wheezing ever since covid infection. Recieved duonebs treatment this AM and has mild end expiratory wheezing. - CXR no acute process, no leukocytosis, afebrile, no increased O2 requirements. Will continue duonebs prn and monitor closely. Can consider respiratory panel, culture if SOB persists. - EKG w/o evidence of acute ST-T changes, pt denies chest pain. Troponin negative x 2, continue to monitor. - No end expiratory wheezes per my exam. Doubt acute infectious process or cardiac etiologygiven w/u above, suspect 2/2 Hx covid infection. Continue prn duonebs and IS #Abd pain - No leukocytosis, fevers. Denies constipation, diarrhea, nausea, emesis. - Recent CT a/p in 06/03 WNL. Will continue to observe overnight and consider reimaging if indicated - Prn tylenol for pain - Suspect 2/2 chronic nephrotic syndrome. Pt reports no change from previous, and prior CT abd was w/o acute abnormality #Hyponatremia, mild asymptomatic - Na 133, continue to monitor trended BMP #Mild metabolic acidosis - CO2 21, continue to monitor trended BMP #CAD #HTN #Mixed hyperlipidemia - Continue ASA 81mg qd. EKG w/o evidence of acute ST-T changes - Hold home lisinopril for now for permissive HTN. Okay to resume lasix due to increased b/l edema - Fasting lipid panel showing mixed hyperlipidemia. Atorvastatin increased to 80mg qd. #Suspected DEMI - Will refer for outpatient sleep study DVT Prophylaxis: lovenox 40 q 24hr - creatinine clearance >30 Disposition: await test results, await instructional design consultant recommendations and awaitclinical improvement. 6AM-6PM please page: Associated attestation - Yara Kidd MD - 07/24/2020 3:50 PM EDT Attending Supervising Physician's Attestation Statement The patient is a 54 y.o. male. I have performed a history and physical examination of the patient. I discussed the case with the physician real estate assistant. I reviewed the patient's Past Medical History, Past Surgical History, Medications, and Allergies. Patient presented with chief complaint of RUE numbness/HI numbness, facial droop and slurred speech. Symptoms resolved by arrival to ED. He has chronic dyspnea since his COVID-19 infection. This morning stated that he has had LUE numbness for a long time but his R hand numbness has been new. Also stated that has bilateral rotator cuff injury and history of cervical fusion. He has peripheral neuropathy in his feet as well. Physical Exam: Vitals: 07/24/20 0915 07/24/20 1212 07/24/20 1350 07/24/20 1356 BP: (!) 150/83 136/88 Pulse: 105 109 Resp: 20 20 20 Temp: 97.5 F (36.4 C) TempSrc: Temporal Temporal SpO2: 95% 96% 95% Weight: Height: General appearance: comfortable, obese. HENT: head is atraumatic, mouth appears dry. Eyes: intact extraocular movement, conjunctivae normal. Pupils are equal, round, and reactive to light. Neck: normal range of motion, no JVD or tracheal deviation. Cardiovascular: normal rate and rhythm, no murmurs or gallop. Pulmonary: normal effort, no rales or wheezing. Abdominal: bowel sounds present in all quadrants, no distention or tenderness to palpation. Musculoskeletal: ankles pain. But no warmth, erythema. Skin: dry Neurological: numbness in RUE, moves all extremities, no focal neurological deficit. Tingling/numbness in feet. Mental status: alert and oriented x3 Depressed mood. Normal affect. Impression/Plan I reviewed and agree with the findings and plan documented in her note . RUE and LUE numbness: - picture concerning for TIA versus peripheral neuropathy - MRI and MRA Head and Neck pending - TTE - appreciate neurology recommendations - continue ASA and Atorvastatin - MRI Cervical spine Nephrotic syndrome 2/2 diffuse membranous GN: BL lower extremities edema (improved per patient) - continue cyclophosphamide 150 mg BID and Bumex 1mg BID - appreciate nephrology recommendations - on bactrim for prophylaxis * Lilian Driscoll, OT - 07/24/2020 9:48 AM EDT Occupational Therapy Occupational Therapy Initial Assessment Date: 07/24/2020 Patient Name: Sophie Hicks : 1965 Date of Service: 07/24/2020 Discharge Recommendations: Home with assist PRN(may benefit from outpatient OT) Assessment Performance deficits / Impairments: Decreased functional mobility ;Decreased ADL status;Decreased ROM;Decreased strength;Decreased balance;Decreased endurance;Decreased sensation;Decreased high-levelIADLs;Decreased coordination;Decreased vision/visual deficit Prognosis: Good Decision Making: Low Complexity OT Education: OT Role;Plan of Care REQUIRES OT FOLLOW UP: Yes Activity Tolerance Activity Tolerance: Patient Tolerated treatment well Safety Devices Safety Devices in place: Yes Type of devices: Call light within reach;Left in chair Patient Diagnosis(es): The primary encounter diagnosis was TIA (transient ischemic attack). Diagnoses of Neurological symptoms, Shortness of breath, and Peripheral edema were also pertinent to this visit. has a past medical history of Benign essential HTN, CAD (coronary artery disease), CS (cervical spondylosis), History of colonic polyps, and Insomnia. has a past surgical history that includes Appendectomy; Neck surgery; Rotator cuff repair (Bilateral); Endoscopy, colon, diagnostic; and Colonoscopy. Restrictions Restrictions/Precautions Restrictions/Precautions: Up as Tolerated Subjective General Chart Reviewed: Yes Patient assessed for rehabilitation services?: Yes Family / Caregiver Present: No Diagnosis: pt to ACH w/ R facial droop, RUE numbness, slurred speech & blurred vision. admittedw/ neurologic symptoms. clive 95/100. Subjective Subjective: pt in chair upon arrival, agreeable to OT. Patient Currently in Pain: Yes(L shoulder pain w/ ROM) Social/Functional History Social/Functional History Lives With: Spouse Type of Home: House Home Layout: One level Home Access: Stairs to enter with rails Entrance Stairs - Number of Steps: 2 Entrance Stairs - Rails: Right Bathroom Shower/Tub: Walk-in shower, Shower chair with back Bathroom Toilet: Handicap height Bathroom Equipment: Grab bars in shower, Shower chair, Grab bars around toilet Home Equipment: 4 wheeled walker, Grab bars Receives Help From: Family ADL Assistance: Independent Homemaking Assistance: Independent Homemaking Responsibilities: Yes Ambulation Assistance: Independent(w/ rollator PRN) Transfer Assistance: Independent 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 Objective Vision: Impaired(reports blurred vision (pre-existing); sees black spots recently) Vision Exceptions: Wears glasses at all times Hearing: Within functional limits Orientation Overall Orientation Status: Within Functional Limits Observation/Palpation Posture: Fair Observation: Moderate SOB noted with all functional activity that is quickly resolved with rest breaks. Mild pain behaviors noted when using L UE to help scoot back in recliner chair. Edema: Bilateral LE, moderate edema, non-pitting. Pt. reports pitting edema upon arrival but medication has considerably reduced edema since admission. Balance Sitting Balance: Independent Standing Balance: Supervision Functional Mobility Functional - Mobility Device: No device Assist Level: Supervision Functional Mobility Comments: mobility in room, reaching for UE support at times. ADL Grooming: Supervision LE Dressing: Supervision(for socks) Tone RUE RUE Tone: Normotonic Tone LUE LUE Tone: Normotonic Coordination Movements Are Fluid And Coordinated: No Coordination and Movement description: Tremors;Right UE(intermittent tremoring RUE; LUE WFL) Bed mobility Comment: NT -in chair Transfers Sit to stand: Supervision Stand to sit: Supervision Transfer Comments: no device Cognition Overall Cognitive Status: WFL Perception Overall Perceptual Status: WFL Sensation Overall Sensation Status: Impaired(RUE WFL; difficulty discriminating light touch sensation LUE-reports tingling) LUE AROM (degrees) LUE General AROM: shoulder 0-70 degrees, distally WFL RUE AROM (degrees) RUE AROM : WFL LUE Strength Gross LUE Strength: Exceptions to WFL L Shoulder Flex: 2+/5 L Hand General: 5/5 RUE Strength Gross RUE Strength: WFL R Hand General: 5/5 RUE Strength Comment: 08/15 grossly Plan Plan Times per week: 3-5 Plan weeks: 4 Current Treatment Recommendations: Strengthening, ROM, Balance Training, Functional Mobility Training, Endurance Training, Neuromuscular Re-education, Pain Management, Patient/Caregiver Education & Training, Self-Care / ADL, Home Management Training, Safety Education & Training Patient's Occupational Therapy Plan of Care supervision is transferred to [facility] Occupational Therapist. Goals and/or treatment plan was established in collaboration with patient/family/other representatives. AM-PAC Score [facility] Inpatient Daily Activity Raw Score: 19 (07/24/20 130) [facility] Inpatient ADL T-Scale Score : 40.22 (07/24/20 130) ADL Inpatient CMS 0-100% Score: 42.8 (07/24/20 130) ADL Inpatient CMS G-Code Modifier : CK (07/24/201306) [facility] Daily Activity Inpatient How much help for putting on and taking off regular lower body clothing?: A Little How much help for Bathing?: A Little How much help for Toileting?: A Little How much help for putting on and taking off regular upper body clothing?: A Little How much help for taking care of personal grooming?: A Little How much help for eating meals?: None [facility] Inpatient Daily Activity Raw Score: 19 [facility] Inpatient ADL T-Scale Score : 40.22 ADL Inpatient CMS 0-100% Score: 42.8 ADL Inpatient CMS G-Code Modifier : CK Goals Short term goals Time Frame for Short term goals: 4 weeks Short term goal 1: full ADL independently. Short term goal 2: functional transfers independently. Short term goal 3: improve L shoulder AROM to WFL for increased independence w/ ADLs. Patient Goals Patient goals : to go home Therapy Time Individual Concurrent Group Co-treatment Time In 0937 Time Out 0948 Minutes 11 Due to COVID-19 pandemic, this provider wore an N95 mask, eye protection, and gloves for duration of session. RICARDA Muñoz/L * RuizMaggieew - 07/24/2020 9:40 AM EDT Physical Therapy Facility/Department: [facility] 3W TELEMETRY Initial Assessment NAME: Sophie Hicks : 1965 Date of Service: 07/24/2020 Discharge Recommendations: Home with assist PRN, Outpatient PT PT Equipment Recommendations Equipment Needed: No Assessment Body structures, Functions, Activity limitations: Decreased sensation;Decreased vision/visual deficit;Decreased endurance Assessment: Despite subjective reports of dizziness and blurred vision, pt.'s safety with functional mobility activities was unimpaired. Pt. operated at a Mod I level for bed mobility and transfers. Pt. was given close supervision with ambulation with FWW in hallway due to reports of dizziness and moderate SOB with ambulation and stair negotiation. Pt. required no physical assistance for mobilityand displayed no safety concerns for loss of balance or falls. From a mobility perspective, pt. is safe to return home once medically appropriate. Recommend outpatient PT services to improve endurance and reduce fatigue with daily activity. Treatment Diagnosis: Poor Endurance Prognosis: Fair Decision Making: Medium Complexity PT Education: PT Role;General Safety;Plan of Care No Skilled PT: Safe to return home REQUIRES PT FOLLOW UP: No Activity Tolerance Activity Tolerance: Patient limited by fatigue;Patient limited by endurance Patient Diagnosis(es): The primary encounter diagnosis was TIA (transient ischemic attack). Diagnoses of Neurological symptoms, Shortness of breath, and Peripheral edema were also pertinent to this visit. has a past medical history of Benign essential HTN, CAD (coronary artery disease), CS (cervical spondylosis), History of colonic polyps, and Insomnia. has a past surgical history that includes Appendectomy; Neck surgery; Rotator cuff repair (Bilateral); Endoscopy, colon, diagnostic; and Colonoscopy. Restrictions Restrictions/Precautions Restrictions/Precautions: (No restrictions/precautions) Required Braces or Orthoses?: No Vision/Hearing Vision: Impaired Vision Exceptions: Wears glasses at all times(Pt. reports blurry vision and constantly seeing black spots in his visual field.) Hearing: Within functional limits Subjective General Chart Reviewed: Yes Patient assessed for rehabilitation services?: Yes Response To Previous Treatment: Not applicable Family / Caregiver Present: No Diagnosis: Concern for stroke, right facial numbness Follows Commands: Within Functional Limits General Comment Comments: Medical equipment in use: IV (removed by RN during PT evaluation), telemetry Subjective Subjective: Pt. pleasant and agreeable for PT evaluation. Pt. reports chronic L shoulder pain and lumbar spine pain. Pt. reports this pain as 6-7/10 upon evaluation. Pt. reports constant dizziness and blurry vision and states I see little black dots. Pt. reports his bilateral LE swelling has improved since admission but still reports pain in feet with ambulation. Pain Screening Patient Currently in Pain: Yes Pain Assessment Pain Level: 7 Pain Location: Leg;Shoulder(Bilateral LE's due to edema. L shoulder) Vital Signs Patient Currently in Pain: Yes Oxygen Therapy O2 Device: None (Room air) Orientation Orientation Overall Orientation Status: Within Functional Limits Social/Functional History Social/Functional History Lives With: Spouse Type of Home: House Home Layout: One level Home Access: Stairs to enter with rails(Reports railing on R side when ascending stairs.) Entrance Stairs - Number of Steps: 2 Entrance Stairs - Rails: Right Bathroom Shower/Tub: Tub/Shower unit Bathroom Toilet: Standard Bathroom Accessibility: Accessible Receives Help From: Family ADL Assistance: Independent Homemaking Assistance: Independent Homemaking Responsibilities: Yes Ambulation Assistance: Independent Transfer Assistance: Independent Active Crusher Supervisor: Yes Mode of Transportation: Car Occupation: Unemployed(Recently due to starting Chemotherapy.) Type of occupation: [employer] Additional Comments: Reports independence with all functional mobility prior to admission. 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 Cognition Cognition Overall Cognitive Status: WFL Objective Observation/Palpation Posture: Fair Observation: Moderate SOB noted with all functional activity that is quickly resolved with rest breaks. Mild pain behaviors noted when using L UE to help scoot back in recliner chair. Edema: Bilateral LE, moderate edema, non-pitting. Pt. reports pitting edema upon arrival but medication has considerably reduced edema since admission. AROM RLE (degrees) RLE AROM: WFL AROM LLE (degrees) LLE AROM : WFL Strength RLE Strength RLE: WFL Comment: Hip flexion: 4/5, knee extension: 5/5, ankle DF/PF: 5/5, hip extension isometric: good, hip abduction isometric: good, hip adduction isometric: good. No side to side strength differences noted in LE's. Strength LLE Strength LLE: WFL Comment: Hip flexion: 4/5, knee extension: 5/5, ankle DF/PF: 5/5, hip extension isometric: good, hip abduction isometric: good, hip adduction isometric: good. No side to side strength differences noted in LE's. Sensation Overall Sensation Status: Impaired(No light touch sensation present in distal toes bilaterally. Pt.able to detect light touch sensation above mid calf/oropeza level bilaterally. Pt. states loss of sensation in bilateral feet for approximately 4 months.) Bed mobility Supine to Sit: Modified independent Scooting: Modified independent Comment: Pt. able to complete all bed mobility at Modified independent level without difficulty. Head of bed was elevated approximately 30 degrees. Pt.'s nurse stated that she would be able to disconnect pt.'s IV and he immediately performed supine to sit without instruction or verbal cueing. Transfers Sit to Stand: Supervision;Contact guard assistance Stand to sit: Modified independent Comment: Initially applied CGA for sit-stand transfer due to pt.'s body habitus and unclear mobility status. Pt. easily performed sit to stand transfer without the need for physical assistance. All other transfers performed during evaluation were performed at a modified independent level. Ambulation Ambulation?: Yes WB Status: FWB More Ambulation?: No Ambulation 1 Surface: level tile Device: Rolling Walker Assistance: Supervision Gait Deviations: Slow [place] Distance: 190 ft. Comments: No significant gait deviations noted that would impact safe functional mobility. No significant postural sway or loss of balance noted with ambulation. Pt. did display moderate SOB approximately half way through ambulation which was sustained until pt. was seated in recliner chair for appr oximately two minutes. Stairs/Curb Stairs?: Yes Stairs # Steps : 4 Stairs Height: 8 Rails: Bilateral Device: Hand Held Assist Assistance: Modified independent Comment: Able to negotiate 4 stairs in unit with bilateral handheld support without difficulty or safety concerns noted. Balance Posture: Fair Sitting - Static: Good Sitting - Dynamic: Good Standing - Static: Good Standing - Dynamic: Fair;+(Required FWW due to subjective reports of dizziness and blurred vision. Although no significant physical signs of increased postural sway noted throughout evaluation.) Plan Plan Plan Comment: PT disch. Safety Devices Type of devices: All fall risk precautions in place, Left in chair, Call light within reach, Nurse notified, Gait belt(RN stated no need for chair alarm placement.) Restraints Initially in place: No AM-PAC Score AM-PAC Inpatient Mobility Raw Score : 24 (07/24/20906) AM-PAC Inpatient T-Scale Score : 61.14 (07/24/20906) Mobility Inpatient CMS 0-100% Score: 0 (07/24/20906) Mobility Inpatient CMS G-Code Modifier : CH (07/24/20906) Therapy Time Individual Concurrent Group Co-treatment Time In 0834 Time Out 0859 Minutes 25 SPT wore N-95 mask and goggles throughout initial evaluation. Evaluation observed and assisted by Yaya Hou PT. 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 Completed speech orders as per stroke protocol. * Brijesh Balbuena MD - 07/24/2020 12:12 AM EDT Responding to Stroke Team on 340B. Per nursing, patient with new LUE decreased sensation, LUE pain with movement. Also having facial mild droop on right side which is not new. 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 Hx of cervical spine surgery and bilateral rotator cuff tear per chart. NIH stroke scale performed and score of 2 given (1 - right facial droop, 1 - LUE sensory loss). Reviewed H&P/ED workup. Patient presented after having symptoms of right sided facial droop, RUE sesnsory loss, blurred vision. NIH score of 2 given (1 - right facial droop, 1 - RUE sensory loss). He presented at about noon today after waking up with the above changes. Was out of tPA window and stroketeam not activated. CT head negative. Troponin negative and EKG unremarkable. Discussed with Neurology attending clinical transformation specialist (Dr. Anderson) - given that no objective change to NIH score and that patient is outside of tPA window, stroke team cancelled. Will be seen by neurology tomorrow AM. Discussed with rapid/nursing. Nurse to draw scheduled labs at this time. No new orders. * Joel Gutierrez MD - 07/23/2020 11:32 PM EDT Called to bedside Patient with LUE numbness. Per patient and nurse this is new. Patient has no sensation in LUE up tothe shoulder. Patient has weakness of LUE as well. He can lift his left arm off the bed for about asecond before it drops to the bed. Did activate stroke team. * Ayaka Christian RN - 07/23/2020 11:30 PM EDT Called in because pt was experiencing new LUE numbness and dizziness with vision changes and new tremors. Pt AO x4 and BP was 180/124. Came to bedside. Stroke team called. TGR=438 and labs drawn.No new orders. documented in this encounter Hospital Course * Beto Hills MD - 05/01/2020 8:37 AM EST Hospitalist Discharge Summary Sophie Hicks : 1965 Admit date: 04/29/2020 Discharge date: 05/01/2020 Admitting Physician: Beto Hills MD Primary Care Physician: VANESSA MCGUIRE MD Visit Status: Admission Code Status: Full Code Discharge Diagnoses: 1. Acute Hypoxic Respiratory Insufficiency 2/2 COVID-19 - Resolved 2. COVID-19 3. Hyponatremia 4. Acute Renal Insufficiency - Improved 5. Asthma 6. CAD 7. HTN 8. Cervical Spondylosis 9. Probable DEMI/ OHS 10. Morbid Obesity Additional diagnosis evaluated and treated during the admission: Patient Active Problem List Diagnosis Code CS (cervical spondylosis) M47.812 Multiple joint pain M25.50 History of colonic polyps Z86.010 Insomnia G47.00 CAD (coronary artery disease) I25.10 Benign essential HTN I10 Morbid obesity (HCC) E66.01 COVID-19 U07.1 Procedures: CXR, CTA chest Hospital Course: Admitted for worsening fatigue and shortness of breath. Positive for COVID-19 on 04/21/2020. Has stated he has had ups and downs with symptoms since. Over the last 3 days, progressive fatigue, cough, wheeze, and ARMENTA. Has been tested for DEMI 2 years ago and was told he did not have it. States other than laying with head raised, he is never comfortable, whether laying or moving. Pt has noticed inability to catch his breath and is audibly wheezing on expiration throughout exam. At rest he is saturating well in the room (95%), but would have conversational hypoxia to 88%. Pt was admitted for Remdesivir and decadron and improved dramatically. He had an episode of chest pain that was evaluated, CTA chest negative for PE. Pt was on room air and did not require home oxygen. Medically cleared for discharge in improved and stable condition on 05/01/2020. See medication adjustments below in med rec. Consults: None Discharge Instructions: Diet: DIET GENERAL; Activity: as tolerated Recommended Outpatient Tests: Outpatient PSG recommended Disposition: Patient discharged in stable condition to Home. Vitals: BP (!) 143/86 Pulse 81 Temp 97 F (36.1 C) (Temporal) Resp 18 Ht 6' 1 (1.854 m) Wt (!) 345 lb (156.5 kg) SpO2 93% BMI 45.52 kg/m Pulse Ox: SpO2 Av.3 % Min: 92 % Max: 95 % Supplemental O2: General appearance: No apparent distress, appears stated age and cooperative with exam. Morbidly obese male HEENT: Normal cephalic, atraumatic without obvious deformity. Pupils equal, round, and reactive to light. Extra ocular muscles intact. Conjunctivae/corneas clear. Neck: Supple, with full range of motion. No jugular venous distention. Trachea midline. No lymphadenopathy. Respiratory: Improved inspiratory effort; CTA bilaterally Cardiovascular: Regular rate and rhythm with normal S1/S2 without murmurs, rubs or gallops. Abdomen: Obese abdomen; Soft, non-tender, non-distended with normal bowel sounds. No rebound or guarding. Musculoskeletal: No clubbing, cyanosis or edema bilaterally. Full range of motion without deformity. Skin: Skin color, texture, turgor normal. No rashes or lesions. Neurologic: Neurovascularly intact without any focal sensory/motor deficits. Cranial nerves: II-XIIintact, grossly non-focal. Discharge Medications: Sophie Hicks Home Medication Instructions ENOC:[id number] Printed on:05/01/20 1513 Medication Information albuterol sulfate HFA (VENTOLIN HFA) 108 (90 Base) MCG/ACT inhaler Inhale 2 puffs into the lungs 4 times daily as needed for Wheezing Use every Four hours for the next 2 days then May switch to every four hours as needed. aspirin 81 MG tablet Take 81 mg by mouth daily. Recommended Follow-up: Vanessa Mcguire MD [address] [address] Schedule an appointment as soon as possible for a visit in 1 week Complexity of Follow up: [] Moderate Complexity: follow up within 7-14 calendar days (01171) [x] Severe Complexity: follow up within 7 calendar days (23557) Follow up Testing, Pending results or Referrals at Transitional Care Visit: [x] yes [] no Instructions to MA: Please call patient on day after discharge (must document patient contacted within 2 business days of discharge). Follow up questions for MA: 1. Did you get medications filled and taking them as instructed from discharge? 2. Are you following your discharge instructions from your hospital stay? 3. Please confirm patient is scheduled for a follow up appointment within the above time frame. Signed: Beto Hills MD Division of Hospitalist Medicine Inpatient Medical Services 05/01/2020, 3:12 PM Time Spent on discharge exceeded 35 minutes discussing plan of care and discharge medications with patient and nursing staff documented in this encounter* Yara Kidd MD - 07/25/2020 3:36 PM EDT Images from the original note were not included. [facility] Discharge Summary and Transition Note Sophie Cobb Kurt : 1965 ADMIT DATE: 07/23/2020 DISCHARGE DATE: 07/25/2020 PRIMARY CARE PHYSICIAN: Naima Rodriguez MD VISIT STATUS: Observation CODE STATUS: Full Code DISCHARGE DIAGNOSES: Active Problems: DJD (degenerative joint disease) of cervical spine CAD (coronary artery disease) Benign essential HTN Morbid obesity (HCC) Nephrotic syndrome Neurological symptoms Diffuse membranous glomerulonephritis Bilateral lower extremity edema Mixed hyperlipidemia Peripheral edema Resolved Problems: Shortness of breath Steroid-induced hyperglycemia Metabolic acidosis HOSPITAL COURSE: 54 year old male with past medical history of CAD, Cervical Spine DJD with neuropathy, essential HTN, Hx of nephrotic syndrome/diffuse membranous GN (on Cytoxan) who presented with bilateral leg swelling and new onset numbness of RUE and facial numbness, associated with blurred vision and slurred speech. He did not have any motor deficit on presentation or throughout the admission. Also patient mentioned intermittent subjective shortness of breath that persisted after his COVID-19 infection. Hewas admitted for TIA work up. Patient had MRI of brain and MRA neck/head which showed 50-60% stenosis in origin of internal carotid artery bilaterally and was negative for ischemic stroke. TTE done and showed normal LVEF with no wall motion abnormalities or structural deficit. Nephrology was consulted for LE edema. Patient was started on Bumex 2mg BID and was recommended for discharge. Patient was discharged in a stable condition with plan to follow up with neurosurgery as MRI of cervical spine showed multi level degenerative changes that could explain persistent neuropathy in both upper extremities. Patient was also educated on importance of follow up with outpatient sleep medicine due to chronic fatigue and concerning signs for sleep apnea. PROCEDURES: None CONSULTANTS: Neurology DISCHARGE MEDICATIONS: Significant Medication Changes: Bumex 2mg BID Gabapentin 600mg TID Atorvastatin 80 mg Sophie Hicks Home Medication Instructions ENOC:[id number] Printed on:07/25/20 2641 Medication Information albuterol sulfate HFA (VENTOLIN HFA) 108 (90 Base) MCG/ACT inhaler Inhale 2 puffs into the lungs 4 times daily as needed for Wheezing Use every Four hours for the next 2 days then May switch to every four hours as needed. aspirin 81 MG chewable tablet Take 81 mg by mouth daily atorvastatin (LIPITOR) 80 MG tablet Take 1 tablet by mouth nightly bumetanide (BUMEX) 1 MG tablet Take 2 tablets by mouth 2 times daily cyclobenzaprine (FLEXERIL) 10 MG tablet Take 1 tablet by mouth 3 times daily as needed for Muscle spasms cyclophosphamide (CYTOXAN) 50 MG CAPS capsule Take 150 mg by mouth 2 times daily dicyclomine (BENTYL) 10 MG capsule Take 1 capsule by mouth 3 times daily (before meals) gabapentin (NEURONTIN) 300 MG capsule Take 2 capsules by mouth 3 times daily for 30 days. lisinopril (PRINIVIL;ZESTRIL) 10 MG tablet Take 1 tablet by mouth daily pantoprazole (PROTONIX) 40 MG tablet Take 1 tablet by mouth 2 times daily (with meals) sucralfate (CARAFATE) 1 GM/10ML suspension Take 10 mLs by mouth 4 times daily (before meals and nightly) sulfamethoxazole-trimethoprim (BACTRIM DS;SEPTRA DS) 800-160 MG per tablet Take 1 tablet by mouth three times a week DIET: cardiac ACTIVITY: resume regular activity SIGNIFICANT DIAGNOSTIC STUDIES: MRI Brain wo contrast MRA Head and neck 1. No acute infarct. 2. No cerebral edema, mass effect or evidence of intracranial mass. 3. Moderate narrowing of approximately 50-60 percent of the bilateral proximal internal carotid arteries versus changes related to motion artifact. Recommend repeat contrast enhanced MRA or CTA of the neck. 4. No hemodynamically significant narrowing of the major arteries of the [place] or posterior circulation. 5. Scattered foci of T2/FLAIR hyperintense signal within the cerebral white matter, which are nonspecific. Findings can be seen with microangiopathy, migraine syndrome or demyelinating disease amongst other etiologies. TTE 1. Left ventricle: Not well visualized. Systolic function is by the biplane method of disks. The estimated ejection fraction is 57%. Unable to assess LV diastolic function due to suboptimal technical data 2. Right ventricle: Not well visualized. Systolic function is grossly normal. 3. Atrial septum: Not well visualized. 4. Mitral valve: Not well visualized. Structurally normal valve. 5. Aortic valve: Not well visualized. 6. Tricuspid valve: Not well visualized. 7. Technically difficult study. COMPLEXITY OF FOLLOW UP: [] Moderate Complexity: follow up within 7-14 calendar days (47455) [x] Severe Complexity: follow up within 7 calendar days (75605) FOLLOW UP TESTING, PENDING RESULTS OR REFERRALS AT TRANSITIONAL CARE VISIT: [x] Yes [] No DISPOSITION: Home FACILITY/HOME CARE AGENCY NAME: N/A Follow up with Naima Rodriguez MD to be scheduled . Notification (telephone encounter) to PCP initiated: [x] Yes [] No INSTRUCTIONS TO MA/SW: Please call patient on day after discharge (must document patient contacted within 2 business days of discharge). FOLLOW UP QUESTIONS FOR MA/SW: 1. Did you get medications filled and taking them as instructed from discharge? 2. Are you following your discharge instructions from your hospital stay? 3. Please confirm patient is scheduled for a follow up appointment within the above time frame. DISCHARGE TIME: > 30 minutes documented in this encounter Reason for Referral Status Reason Specialty Diagnoses / Procedures Referred By Contact Referred To Contact Open Specialty Services Required Sleep Medicine / Pulmonology Diagnoses Neurological symptoms Morbid obesity (HCC) Yara Kidd MD [address] [place] [address] [place] [address] Randall Arango MD [address] [place] [address] [place] [address] Scheduling Instructions [facility] Sleep - Randall Arango MD [address] [place] [address]. [address] [place] [address] Status Reason Specialty Diagnoses / Procedures Referred By Contact Referred To Contact Open Specialty Services Required Neurosurgery Diagnoses Osteoarthritis of spine with radiculopathy, cervical region Yara Kidd MD [address] [place] [address] [place] [address] Semaj Greco MD [address] [place] [address] Scheduling Instructions [facility] [address] [place] [address], [address] [place] [address] Specialty Diagnoses / Procedures Referred By Contac t Referred To Contact Gastroenterology Diagnoses Abdominal pain, epigastric Ramón Marcus MD [address] [place] [id number] [facility] [address] [facility] [address] [place] [id number] Referral ID Status Reason Start Date Expiration Date V isits Requested Visits Authorized [id number] Open Specialty Services Required 06/15/2021 06/15/2022 1 1 Scheduling Instructions [facility] Gastroenterology [address] [facility], [address] [place] [address]. [id number] Fax: Specialty Diagnoses / Procedures Referred By Contac t Referred To Contact Orthopedic Surgery Diagnoses Knee pain, unspecified chronicity, unspecified laterality Bubba Smith MD [address] [place] [address] [facility] [place] [address] [address] [place] [address] Referral ID Status Reason Start Date Expiration Date V isits Requested Visits Authorized [id number] Open Specialty Services Required 10/21/2021 10/21/2022 1 1 Scheduling Instructions [facility] Orthopedics - [place] [address] [place] [address] Additional Source Comments Source Comments (unrecognize d section and content) In the event this informatio n is protected by the Federal Confidentiality of Alcohol and Drug Abuse Patient Records regulations: The Federal rules restrict any use of the information to criminally investigate or prosecute any alcohol or drug abuse patient.[facility] Reason for Visit (unrecogniz ed section and content) Reason Comments Abdominal Pain Specialty Diagnoses / Procedures Referred By Contac t Referred To Contact Diagnoses Abdominal pain, epigastric Procedures . Louisa Cabello, [address] [place] [address] [facility] [address] [place] [address] Referral ID Status Reason Start Date Expiration Date Visits Re quested Visits Authorized [id number] 1 1 Status Reason Specialty Diagnoses / Procedures Referred By Contact Referred To Contact Closed OON/Self Pay Override MR IMAGING Diagnoses Acute pain of left shoulder Rotator cuff strain, left, initial encounter Procedures MRI SHOULDER WO IVCON LT MRI, JOINT UPPER EXTREM Elin Orta [address] [place] [address] Mr Imaging Reason Comments Chest Pain Shortness of Breath Reason Comments Concern For COVID-19 Shortness of Breath Reason Comments Abdominal Cramping Diarrhea Dizziness Reason Comments Shortness of Breath Reason Comments Leg Swelling Patient states leg s welling and numbness in legs and feet x4 months. Numbness Woke up with right s alin numbness this AM, states his vision is blurry bilaterally that started this AM, also reports dizziness. Back Pain middle lower back pa in x3 days. Reason Comments Back Pain Reason Comments Leg Swelling Pt coming from home c/o eliane leg swelling and R toes turning black and blue for the past 3 months. Hx stage 3 kidney failure. Reason Comments Extremity Weakness Dizziness Numbness Back Pain Reason Comments Chest Pain Abdominal Pain upper and lower quad rants Reason Comments Urinary Retention Reason Comments Hematuria Reason Comments Shortness of Breath Leg Swelling Chest Pain Reason Comments Hyperglycemia Chest Pain Reason Comments Dizziness Hyperglycemia Reason Comments Abdominal Pain Back Pain Reason Comments Fall Leg Injury Hip Pain Reason Comments Groin Swelling Knee Pain Reason Comments Abdominal Pain Pain x [address] days[address] Gastr ic bypass 2 weeks ago. Blood with BM. SOB and difficulty with inspiration and expiration. Reason Onset Date Comments Nutrition Counseling 07/17/2022 7M POP nutr ition call Reason Comments Bariatrics Post Op Follow-up 12 M Reason Comments Abdominal Pain Pt states any time h e tries to eat he is getting mid abd pain, he fells bloated. Had gastric bypass sx about 1 1/2 ago. Reason Onset Date Comments Abdominal Pain 02/16/2023 Reason Comments EGD Reason Comments Abdominal Pain Vomiting Chest Pain Symptoms started 1 w [place] ago seen at [facility] couple days ago, pt states that every time he eats he vomits and has the shacks and sweaty had weight loss surgery 1 year, CP started yesterday left side pain radiates down left arm 11/20 Reason Comments Syncope Reason Comments Abdominal Cramping Black or Bloody Stool Patient arrives to ED via private auto with complaints of abdominal cramping and bloody black stools x3 days. Takes 81mg aspirin, denies other thinners. States that he has also been fainting several time over the last few days. Reason Onset Date Comments Reschedule 05/05/2023 Reason Comments Bariatrics Post Op Follow-up 18M Reason Comments New Patient Reason Onset Date Comments New Med Request 07/14/2023 Pt is asking if the Dr is going to call in that medication that he and the Dr discussed that will help him lose the last bit of weight before surgery. Please call to discuss Reason Comments Med Refill Reason Comments Benign Prostatic Hypertrophy States urin roopa urgency and frequency, states has urinary incontinence and post void dribbling, states he really has to push hard to empty his bladder and feels as if he's not fully emptying with voiding, denies gross hematuria, states occasional urinary hesitancy, states urine stream is weak Specialty Diagnoses / Procedures Referred By Contcarmelita t Referred To Contact Urology Diagnoses Benign prostatic hyperplasia with lower urinary tract symptoms Procedures Eval and Tx Wiliam Fernandez MD [address] [place] [address] [facility] [address] [place] [address] Referral ID Status Reason Start Date Expiration Date V isits Requested Visits Authorized [id number] Pending Review 05/04/2023 05/03/2024 1 1 Reason Comments Bariatrics Post Op Follow-up D/E POP F/U Reason Comments Procedure Cysto/TRUS only Reason Onset Date Comments Surgery Scheduling 06/24/2023 [facility] Reason Comments Blood in Urine Pt presents to ED fo r blood leaking out of his penis. Pt states bleeding began yesterday and has progressively gotten worse. Pt states he is having a steady leaking of blood from his penis that he is unable to stop. Reason Comments Blood in Urine Pt arrives to ED for a second time today - pt had a conte placed with irrigation yesterday for bleeding, and pt's urinary pain and bleeding has increased since placing it. Specialty Diagnoses / Procedures Referred By Kia roman Referred To Contact Diagnoses Hematuria Procedures - Floyd Dunlap [address] [place] [phone] [facility] Emergency Dept [address] [place] [address] Referral ID Status Reason Start Date Expiration Date Visits Re quested Visits Authorized [id number] 1 1 Reason Comments Blood in Urine Pt recently discharg ed from hospital, conte removed. Pt sts that he went to the bathroom earlier and it was straight blood. Pt arrives holding a towel with pressure to penis. Abdominal Pain Fall Denies injuries. Pt sts that he caught himself and slowed the fall pt sts that his legs are bowing out from underneath him Reason Onset Date Comments Appointment Request 08/21/2023 Reason Comments ER Follow-up Patient has conte ca theter placed from ER due to hematuria. Last ER visit 08/20Urine straw colored today Specialty Diagnoses / Procedures Referred By Kia roman Referred To Contact Urology Diagnoses Acute cystitis with hematuria Procedures IN OFFICE/OUTPATIENT NEW HIGH MDM 60 MINUTES Eduard Guan MD [address] [place] [address] [facility] [address] [place] [address] Referral ID Status Reason Start Date Expiration Date V isits Requested Visits Authorized [id number] Closed Specialty Services Required 08/21/2023 08/20/2024 1 1 Reason Comments voiding trial Pt had blood clots Specialty Diagnoses / Procedures Referred By Kia roman Referred To Contact Diagnoses Gross hematuria Procedures IN CYSTO BLADDER W/URETERAL CATHETERIZATION IN CYSTO W/URTROSCOPY&/PYELOSCOPY DX CYSTOSCOPY, RETROGRADE PYELOGRAM POSSIBLE BILATERAL URETEROSCOPY Cristo Coyne MD [address] [place] [address] Referral ID Status Reason Start Date Expiration Date Visits Re quested Visits Authorized [id number] 09/09/2023 1 1 Reason Onset Date Comments Post-op Problem 09/17/2023 Medication Problem 09/17/2023 Reason Comments Follow-up Specialty Diagnoses / Procedures Referred By Kia roman Referred To Contact Diagnoses Localized adiposity Procedures IN EXCISION SKIN ABD INFRAUMBILICAL PANNICULECTOMY PANNICULECTOMY Beto Gutierrez MD [address] [place] [address] [place] [address] Referral ID Status Reason Start Date Expiration Date Visits Re quested Visits Authorized [id number] 09/08/2023 1 1 Reason Onset Date Comments Post-op Problem 09/26/2023 Reason Onset Date Comments Post-op Problem 09/27/2023 Reason Onset Date Comments Med Refill 09/28/2023 Reason Comments Post-op Reason Comments Med Refill Protonix Reason Comments Incisional Pain Skin removal surgery completed on last Thursday09/23/2023. Pt complaint of incisional pain. Pt states that he has not had a BM in 8 days Specialty Diagnoses / Procedures Referred By Kia roman Referred To Contact Diagnoses Lightheadedness Generalized abdominal pain Pre-syncope Near syncope Status post panniculectomy Constipation, unspecified constipation type Procedures R42 (ICD-10-CM) - Lightheadedness Bubba Smith MD [address] [place] [address] [facility] [address] [place] [address] Referral ID Status Reason Start Date Expiration Date Visits Re quested Visits Authorized [id number] 1 1 Reason Onset Date Comments Post-op Follow-up 09/16/2023 Reason Comments Benign Prostatic Hypertrophy Reason Onset Date Comments Surgery Scheduling 12/01/2023 Reason Onset Date Comments Appointment 02/03/2024 Reschedule Reason Onset Date Comments Release of Information 03/09/2024 Reason Comments Flank Pain Leg Swelling Reason Comments Flu Symptoms Pt tested positive f or covid 7 days ago coming in for cough, chest tightness, fevers, chills, and generalized unwell feeling. 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.Ref Amos Reason Comments Cardiac Clearance Specialty Diagnoses / Procedures Referred By Contac t Referred To Contact Cardiology Diagnoses Right hip pain Procedures IN OFFICE/OUTPATIENT NEW HIGH MDM 60 MINUTES Antony Anderson MD 1 [facility] [address] [place] [address] Phone: tel: fax: [facility] [address] [address] Phone: tel: fax: Referral ID Status Reason Start Date Expiration Date V isits Requested Visits Authorized [id number] Closed Specialty Services Required 05/11/2024 05/11/2025 1 1 Reason Onset Date Comments Surgery Scheduling 05/13/2024 Reason Onset Date Comments Hip Pain 05/14/2024 Reason Onset Date Comments Surgery Scheduling 05/16/2024 RTHA Reason Comments Fall Laceration Reason Comments Weakness, Gen Leg Pain Specialty Diagnoses / Procedures Referred By Contac t Referred To Contact Diagnoses Pain and swelling of left lower leg Procedures . Yadiel Boss MD [address] [place] [address] Phone: tel: fax: [facility] [address] [place] [address] Phone: tel: Referral ID Status Reason Start Date Expiration Date Visits Re quested Visits Authorized [id number] 1 1 Reason Onset Date Comments Referral 07/11/2024 Reason Onset Date Comments Appointment 07/14/2024 Reason Comments Memory Loss Specialty Diagnoses / Procedures Referred By Kia roman Referred To Contact Geriatric Medicine Diagnoses patient thinks he has alz/dementia. Procedures new patient appointment [facility] [address] [facility] [place] [address] Phone: tel: fax: [facility] [place] [address] [address] [place] [address] Phone: tel: fax: Referral ID Status Reason Start Date Expiration Date Visits Re quested Visits Authorized [id number] Closed 07/15/2024 01/11/2025 1 1 Reason Comments Post-op IPO: RTHA SX:05/27 Reason Onset Date Comments Advice Only 07/27/2024 Reason Comments Back Pain Reason Onset Date Comments Appointment Request 07/14/2024 Reason Onset Date Comments Post-op Problem 09/09/2024 RTHA 05/27/24 Reason Onset Date Comments Breathing Problem 09/12/2024 Reason Onset Date Comments Appointment 08/23/2024 Reason Comments Follow-up DOS 05/27/24, RTHA; p ain x 1 week Reason Comments Hip Pain Patient brought in b y EMS from home with reports of right sided hip pain. Patient had a hip replacement 3 months ago. Patient was seen yesterday and had labs drawn and xrays taken that were negative. Reason Onset Date Comments Hip Pain 09/27/2024 Post-op 09/27/2024 Reason Onset Date Comments Appointment Confirmation 10/07/2024 Had ref erral 09/26/24 Mild dementia with other behavioral disturbance, unspecified dementia type (HCC) ([id number] Reason Comments Pain Patient is here for pain in the RT hip, neck, ELIANE shoulders, and ELIANE knees, with occasional tingling and numbness in his hands and feet. Specialty Diagnoses / Procedures Referred By Kia roman Referred To Contact Pain Medicine Diagnoses Other chronic pain Procedures IN OFFICE/OP CONSLTJ NEW/EST PT MOD MDM 40 MINUTES Wiliam Fernandez MD [address] [place] [address] Phone: tel: fax: [facility] [address] [place] [address] Phone: tel: fax: Referral ID Status Reason Start Date Expiration Date Visits Re quested Visits Authorized [id number] Closed 09/13/2024 09/13/2025 1 1 Reason Comments Other Right greater troch bursa injecton Specialty Diagnoses / Procedures Referred By Contac t Referred To Contact Sports Medicine Diagnoses S/P total right hip arthroplasty Primary osteoarthritis of right hip Right hip pain Procedures IN OFFICE/OUTPATIENT [facility] MDM 60 MINUTES Maria G Jarvis PA-C 1 [facility] [address] [place] [address] Phone: tel: fax: [facility] [place] [address] [facility] [address] [place] [address] Phone: tel: fax: Referral ID Status Reason Start Date Expiration Date V isits Requested Visits Authorized [id number] Closed Specialty Services Required 09/26/2024 09/26/2025 1 1 Reason Onset Date Comments Discussion Of Care 11/23/2024 Reason Onset Date Comments Appointment Request 01/12/2025 Reason Comments Pain Patient is here for neck, lower back, and RT hip. MRI results in chart for review. Reason Comments Pain Patient is here for widespread joint pain, and to start a wean of opioid medication. Reason Comments Follow-up FU/right hip, 4wk po st GTB injection Reason Onset Date Comments Med Management 01/27/2025 Reason Onset Date Comments Withdrawal 01/30/2025 Reason Comments Back Pain Hip Pain Ordered Prescriptions (unrec ognized section and content) Prescription Sig Dispensed Refills Start Date End Da te oxyCODONE-acetaminophe n (PERCOCET) 5-325 MG per tabletIndications:Ches t pain, unspecified type,Bilateral leg edema Take 1 tablet by mouth every 6 hours as needed for Pain for up to 3 days. WARNING: May cause drowsiness. May impair ability to operate vehicles or machinery. Do not use in combination with alcohol. 10 tablet 0 03/30/2020 04/02/2020 furosemide (LASIX) 20 MG tablet Take 1 tablet by mouth daily for 5 days Start tomorrow 5 tablet 0 03/30/2020 04/04/2020 Prescription Sig Dispensed Refills Start Date End Da te predniSONE (DELTASONE) 20 MG tablet Take 3 tablets by mouth daily for 4 days 12 tablet 0 04/21/2020 04/25/2020 albuterol sulfate HFA (VENTOLIN HFA) 108 (90 Base) MCG/ACT inhaler Inhale 2 puffs into the lungs 4 times daily as needed for Wheezing Use every Four hours for the next 2 days then May switch to every four hours as needed. 2 Inhaler 0 04/21/2020 Prescription Sig Dispensed Refills Start Date End Da te furosemide (LASIX) 40 MG tablet Take 1 tablet by mouth daily 60 tablet 3 06/06/2020 oxyCODONE-acetaminophen (PERCOCET) 5-325 MG per tabletIndications:Gener alized abdominal pain Take 1 tablet by mouth every 6 hours as needed for Pain for up to 5 days. Intended supply: 5 days. Take lowest dose possible to manage pain 10 tablet 0 06/06/2020 06/11/2020 sucralfate (CARAFATE) 1 GM/10ML suspension Take 10 mLs by mouth 4 times daily (before meals and nightly) 1200 mL 3 06/06/2020 dicyclomine (BENTYL) 10 MG capsule Take 1 capsule by mouth 3 times daily (before meals) 120 capsule 3 06/06/2020 Prescription Sig Dispensed Refills Start Date End Da te furosemide (LASIX) 40 MG tablet Take 2 tablets by mouth daily 120 tablet 1 06/11/2020 lisinopril (PRINIVIL;ZESTRIL) 10 MG tablet Take 1 tablet by mouth daily 60 tablet 1 06/11/2020 oxyCODONE-acetaminophen (PERCOCET) 5-325 MG per tabletIndications:Gener alized abdominal pain Take 1 tablet by mouth every 6 hours as needed for Pain for up to 5 days. Intended supply: 5 days. Take lowest dose possible to manage pain 15 tablet 0 06/11/2020 06/11/2020 Prescription Sig Dispensed Refills Start Date End Da te cyclobenzaprine (FLEXERIL) 10 MG tablet Take 1 tablet by mouth 3 times daily as needed for Muscle spasms 30 tablet 0 07/25/2020 08/04/2020 sulfamethoxazole-trimet hoprim (BACTRIM DS;SEPTRA DS) 800-160 MG per tablet Take 1 tablet by mouth three times a week 30 tablet 0 07/25/2020 bumetanide (BUMEX) 1 MG tablet Take 2 tablets by mouth 2 times daily 30 tablet 3 07/25/2020 atorvastatin (LIPITOR) 80 MG tablet Take 1 tablet by mouth nightly 30 tablet 3 07/25/2020 gabapentin (NEURONTIN) 300 MG capsule Take 2 capsules by mouth 3 times daily for 30 days. 180 capsule 0 07/25/2020 08/24/2020 Prescription Sig Dispensed Refills Start Date End Da te gabapentin (NEURONTIN) 300 MG capsule Take 2 capsules by mouth 3 times daily for 30 days. 180 capsule 0 08/26/2020 09/25/2020 torsemide (DEMADEX) 20 MG tablet Take 1 tablet by mouth 2 times daily 30 tablet 3 08/26/2020 predniSONE (DELTASONE) 20 MG tablet Take 3 tablets by mouth daily for 21 days 63 tablet 0 08/27/2020 09/17/2020 Prescription Sig Dispensed Refills Start Date End Da te cyclophosphamide (CYTOXAN) 50 MG CAPS capsule Take 3 capsules by mouth 2 times daily 180 capsule 0 09/13/2020 lidocaine 4 % external patch Place 1 patch onto the skin daily 3 patch 0 09/13/2020 oxyCODONE (ROXICODONE) 5 MG immediate release tabletIndications:Degen erative disc disease, lumbar,Degenerative disc disease, thoracic Take 1 tablet by mouth every 8 hours as needed for Pain for up to 5 days. 15 tablet 0 09/13/2020 09/18/2020 Prescription Sig Dispensed Refills Start Date End Da te metOLazone (ZAROXOLYN) 2.5 MG tablet Take 1 tablet by mouth daily Take 30min before torsemide 30 tablet 3 10/02/2020 Prescription Sig Dispensed Refills Start Date End Da te predniSONE (DELTASONE) 20 MG tablet Take 1 tablet by mouth 2 times daily for 5 days 10 tablet 0 10/04/2020 10/09/2020 lidocaine 4 % external patch Place 1 patch onto the skin daily 30 patch 0 10/04/2020 11/03/2020 acetaminophen (TYLENOL) 500 MG tablet Take 2 tablets by mouth 4 times daily as needed for Pain 20 tablet 0 10/04/2020 10/09/2020 cyclobenzaprine (FLEXERIL) 10 MG tablet Take 1 tablet by mouth 3 times daily as needed for Muscle spasms 15 tablet 0 10/04/2020 10/09/2020 Prescription Sig Dispensed Refills Start Date End Da te phenazopyridine (PYRIDIUM) 200 MG tablet Take 1 tablet by mouth 3 times daily as needed for Pain 9 tablet 0 10/26/2020 10/29/2020 Prescription Sig Dispensed Refills Start Date End Da te oxybutynin (DITROPAN XL) 10 MG extended release tablet Take 1 tablet by mouth daily 30 tablet 3 11/01/2020 oxyCODONE-acetaminophen (PERCOCET) 5-325 MG per tabletIndications:Bladde r spasm,Urinary retention Take 1 tablet by mouth every 6 hours as needed for Pain for up to 3 days. Intended supply: 3 days. Take lowest dose possible to manage pain 12 tablet 0 11/01/2020 11/04/2020 phenazopyridine (PYRIDIUM) 200 MG tablet Take 1 tablet by mouth 3 times daily as needed for Pain 9 tablet 0 11/01/2020 11/04/2020 Prescription Sig Dispensed Refills Start Date End Da te phenazopyridine (PYRIDIUM) 200 MG tablet Take 1 tablet by mouth 3 times daily as needed for Pain 9 tablet 0 11/19/2020 11/22/2020 Prescription Sig Dispensed Refills Start Date End Da te erythromycin (ROMYCIN) 5 MG/GM ophthalmic ointment Apply to your eye 4 times a day 3.5 g 0 01/07/2021 HYDROcodone-acetaminophe n (NORCO) 5-325 MG per tabletIndications:Leg swelling Take 1 tablet by mouth every 6 hours as needed for Pain for up to 3 days. Intended supply: 3 days. Take lowest dose possible to manage pain 10 tablet 0 01/07/2021 01/10/2021 metOLazone (ZAROXOLYN) 2.5 MG tablet Take 1 tablet by mouth three times a week 30 tablet 0 01/07/2021 Prescription Sig Dispensed Refills Start Date End Da te famotidine (PEPCID) 20 MG tablet Take 1 tablet by mouth 2 times daily for 14 days 28 tablet 0 02/09/2021 02/23/2021 cyclobenzaprine (FLEXERIL) 10 MG tablet Take 1 tablet by mouth 3 times daily as needed for Muscle spasms 15 tablet 0 02/09/2021 ondansetron (ZOFRAN ODT) 4 MG disintegrating tablet Take 1 tablet by mouth every 8 hours as needed for Nausea 20 tablet 0 02/09/2021 Prescription Sig Dispensed Refills Start Date End Da te famotidine (PEPCID) 20 MG tablet Take 1 tablet by mouth 2 times daily 60 tablet 0 06/15/2021 Prescription Sig Dispensed Refills Start Date End Da te methocarbamol (ROBAXIN) 500 MG tablet Take 1 tablet by mouth every 6 hours as needed (Pain) 20 tablet 0 10/03/2021 10/08/2021 Prescription Sig Dispensed Refills Start Date End Da te HYDROcodone-acetaminophe n (NORCO) 5-325 MG per tabletIndications:Knee pain, unspecified chronicity, unspecified laterality Take 1 tablet by mouth every 6 hours as needed for Pain for up to 3 days. Intended supply: 3 days. Take lowest dose possible to manage pain 10 tablet 0 10/21/2021 10/24/2021 Prescription Sig Dispensed Refills Start Date End Da te polyethylene glycol (GLYCOLAX) 17 GM/SCOOP powder Take 17 g by mouth daily as needed (Take once daily as needed for constipation) 510 g 0 12/05/2021 01/04/2022 ondansetron (ZOFRAN) 4 MG tablet Take 1 tablet by mouth 3 times daily as needed for Nausea or Vomiting 30 tablet 0 12/03/2021 oxyCODONE-acetaminophen (PERCOCET) 5-325 MG per tabletIndications:Post-o p pain Take 1 tablet by mouth every 6 hours as needed for Pain for up to 7 days. Intended supply: 7 days. Take lowest dose possible to manage pain 28 tablet 0 12/03/2021 12/10/2021 Prescription Sig Dispensed Refills Start Date End Da te dicyclomine (BENTYL) 10 MG capsule Take 1 capsule by mouth 4 times daily 120 capsule 0 12/19/2021 (unrecognized sect ion and content) No Status Records FoundNo Status Records FoundNo Status Records FoundNo Status Records FoundNo Status Records FoundNo Status Records FoundNo Status Records FoundNo Status Records Found INFORMATION SOURCE (unrecogn ized section and content) DATE CREATED AUTHOR [facility] DATE CREATED AUTHOR AUTHOR'S ORGANIZ ATION [facility] DATE CREATED AUTHOR AUTHOR'S ORGANIZ ATION 11/21/2021 [facility] DATE CREATED AUTHOR AUTHOR'S ORGANIZ ATION 11/23/2021 [facility] DATE CREATED AUTHOR AUTHOR'S ORGANIZ ATION 12/19/2021 [facility] DATE CREATED AUTHOR AUTHOR'S ORGANIZ ATION 01/16/2022 [facility] DATE CREATED AUTHOR AUTHOR'S ORGANIZ ATION 04/06/2024 [facility] DATE CREATED AUTHOR AUTHOR'S ORGANIZ ATION 02/17/2025 [facility] Scheduled Active and Recently Administ ered Medications (unrecognized section and content) Medication Order 08/24/2020 08/25/2020 08/26/2020 aspirin chewable tablet 81 mg 81 mg, Oral, DAILY, First dose on Thu08/22/20 at 1745 1201 (Given - Provider: Andrea Weeks, CIRO) 0920 (Given - Provider: Tamia Olson, CIRO) 0819 (Given - Provider: Daja Bucio, CIRO) atorvastatin (LIPITOR) tablet 80 mg 80 mg, Oral, NIGHTLY, First dose on Thu08/22/20 at 2100 2035 (Given - Provider: Marylou Marquez, CIRO) 204 (Given - Provider: Sarbjit Harvey, CIRO) 2100 (Due) cyclophosphamide (CYTOXAN) 50 MG capsule CAPS 150 mg 150 mg, Oral, EVERY 6 HOURS, First dose on Thu08/22/20 at 1745, Do not crush or break. Hazardous Medication -- Refer to facility policy for handling and disposal. 0545 (Automatically Held)1145 (Automatically Held)1745 (Automatically Held)2345 (Automatically Held) 0545 (Automatically Held)1145 (Automatically Held)1745 (Automatically Held)2345 (Automatically Held) 0545 (Automatically Held)1145 (Automatically Held)1745 (Automatically Held)2345 (Automatically Held) furosemide (LASIX) injection 80 mg (CANCELED) 80 mg, Intravenous, 2 TIMES DAILY, First dose on 08/22/20 at 1800 1202 (Given - Provider: Andrea Weeks RN)1739 (Given - Provider: Andrea Weeks RN) 0926 (Given - Provider: Tamia Olson, CIRO)1735 (Given - Provider: Tamia Olson, CIRO) ipratropium-albuterol (DUONEB) nebulizer solution 1 ampule 1 ampule, Inhalation, 2 TIMES DAILY, First dose (after last modification) on Monica 08/23/20 at 2000 1003 (Not Given - Provider: Serena Tenorio RCP - Reason: Patient/family refused - Comment: PT ON PHONE X2 AND REFUSED TX AT THIS TIME. RT WILL CHECK BACK LATER.)1800 (Given - Provider: Sarbjit Arora RCP)2000 (Canceled Entry - Provider: Sarbjit Arora RCP) 1005 (Given - Provider: Ronaldo Kemp RCP)1930 (Not Given - Provider: Mann Hanson RCP - Reason: Patient/family refused) 1035 (Not Given - Provider: Ronaldo Kemp RCP - Reason: Patient/family refused - Comment: i dont need one today)1999 (Due) lactated ringers bolus (COMPLETED) 500 mL, Intravenous, at 250 mL/hr, Administer over 2 Hours, ONCE, On 08/25/20 at 2015, For 1 dose 2042 (New Bag - Provider: Sarbjit Harvey RN)224 (Stopped - Provider: Sarbjit Harvey RN) melatonin tablet 6 mg 6 mg, Oral, NIGHTLY, First dose on Thu08/22/20 at 2200 2036 (Given - Provider: Maryluo Marquez, CIRO) 204 (Given - Provider: Sarbjit Harvey, CIRO) 2100 (Due) metOLazone (ZAROXOLYN) tablet 2.5 mg (CANCELED) 2.5 mg, Oral, EVERY MORNING, First dose on Monica 08/23/20 at 0900 1126 (Given - Provider: Andrea Weeks RN) pantoprazole (PROTONIX) tablet 40 mg 40 mg, Oral, 2 TIMES DAILY WITH MEALS, First dose on Thu08/22/20 at 1745, Do not crush or break. 1201 (Given - Provider: Andrea Weeks RN)1739 (Given - Provider: Andrea Weeks RN) 0920 (Given - Provider: Tamia Olson, CIRO)1555 (Given - Provider: Tamia Olson RN) 0818 (Given - Provider: Daja Bucio, CIRO)1700 (Due) potassium chloride (KLOR-CON M) extended release tablet 40 mEq (COMPLETED) 40 mEq, Oral, ONCE, On Thu08/26/20 at 0630, For 1 dose, Do not crush, chew, or suck on tablet. Tablet may also be broken in half and each half swallowed separately. 0622 (Given - Provider: Sarbjit Harvey RN) predniSONE (DELTASONE) tablet 60 mg 60 mg, Oral, DAILY, First dose on Thu08/23/20 at 0900 1200 (Given - Provider: Andrea Weeks RN) 0920 (Given - Provider: Tamia Olson RN) 0818 (Given - Provider: Daja Bucio RN) pregabalin (LYRICA) capsule 75 mg 75 mg, Oral, 2 TIMES DAILY, First dose on Thu08/23/20 at 2100 1200 (Given - Provider: Andrea Weeks RN)2036 (Given - Provider: Marylou Marquez RN) 0926 (Given - Provider: Tamia Olson RN)2043 (Given - Provider: Sarbjit Harvey RN) 0819 (Given - Provider: Daja Bucio RN)2100 (Due) sodium chloride flush 0.9 % injection 5-40 mL 5-40 mL, Intravenous, EVERY 12 HOURS SCHEDULED (2 times per day), First dose on Thu08/22/20 at 2100, For Line Patency: Peripheral IV = 5 mL; Midline or Central Line = 10 mL/lumen. If following IV push medication, administer flush at same rate as the IV push. Flush volume is determined by type of infusion therapy being given. For non-viscous solutions use: Peripheral IV = 5 mL Midline or Central Line = 10 mL/lumen For viscous solutions (i.e. blood components, parenteral nutrition, contrast media, or after obtaining blood sample) use: Peripheral IV = 10 mL Midline or Central Line = 20 mL/lumen 1205 (Given - Provider: Andrea Weeks RN)203 (Given - Provider: Marylou Marquez RN) 09 (Given - Provider: Tamia Olson RN)2099 (Not Given - Provider: Sarbjit Harvey RN - Reason: IV Fluid Infusing) 08 (Given - Provider: Daja Bucio RN)2099 (Due) sulfamethoxazole-trime thoprim (BACTRIM DS;SEPTRA DS) 800-160 MG per tablet 1 tablet 1 tablet, Oral, THREE TIMES WEEKLY (Once per day on Thu), First dose on Thu08/22/20 at 1745 1201 (Given - Provider: Andrea Weeks RN) torsemide (DEMADEX) tablet 20 mg 20 mg, Oral, 2 TIMES DAILY, First dose on Thu08/26/20 at 0900 0818 (Given - Provider: Daja Bucio RN)2099 (Due) traZODone (DESYREL) tablet 50 mg 50 mg, Oral, NIGHTLY, First dose on Thu08/22/20 at 2200 203 (Given - Provider: Marylou Marquez RN) 2042 (Given - Provider: Sarbjit Harvey RN) 2099 (Due) PRN Medication Order 08/24/2020 08/25/2020 08/26/2020 0.9 % sodium chloride infusion 25 mL, Intravenous, at 100 mL/hr, PRN, If patient receiving piggyback infusions without ordered maintenance IV fluids or with frequent/long duration piggyback infusions, Starting Thu08/22/20 at 1548, Administer at the same rate as the piggyback being infused. acetaminophen (TYLENOL) tablet 1,000 mg 1,000 mg, Oral, EVERY 8 HOURS PRN, Pain Mild (1-3), Pain Moderate (4-6), For temp greater than 100.4 F (38 C), Starting on 08/25/20 at 2015, Maximum dose of acetaminophen is 4000 mg from all sources in 24 hours. 2041 (Given - Provider: Sarbjit Harvey RN) 08 (Given - Provider: Daja Bucio RN - Comment: Headache) acetaminophen (TYLENOL) tablet 650 mg (CANCELED) 650 mg, Oral, EVERY 6 HOURS PRN, Pain Mild (1-3), Fever, For temp greater than 100.4 F (38 C), Starting on Thu08/22/20 at 1548, Maximum dose of acetaminophen is 4000 mg from all sources in 24 hours. 1201 (Given - Provider: Andrea Weeks RN)2051 (Given - Provider: Marylou Marquez, CIRO) 0936 (Given - Provider: Tamia Olson RN) baclofen (LIORESAL) tablet 10 mg 10 mg, Oral, 3 TIMES DAILY PRN, back pain, Starting Monica 08/23/20 at 2030 0101 (Given - Provider: Sridevi Alicea RN)1201 (Given - Provider: Andrea Weeks RN)2051 (Given - Provider: Marylou Marquez, RN) 1555 (Given - Provider: Tamia Olson, CIRO)204 (Given - Provider: Sarbjit Harvey, CIRO) 0847 (Given - Provider: Daja Bucio RN) dicyclomine (BENTYL) capsule 10 mg 10 mg, Oral, 3 TIMES DAILY PRN, Abdominal Cramping, Starting 08/22/20 at 1725 1201 (Given - Provider: Andrea Weeks RN)1738 (Given - Provider: Andrea Weeks RN) 0936 (Given - Provider: Tamia Olson RN)2042 (Given - Provider: Sarbjit Harvey, CIRO) ondansetron (ZOFRAN) injection 4 mg(Linked Group 1) 4 mg, Intravenous, EVERY 6 HOURS PRN, Nausea, Vomiting, Starting 08/22/20 at 1548, Administer if oral route cannot be used. 1200 (Given - Provider: Andrea Weeks RN)1739 (See Alternative - Provider: Andrea Weeks RN) 0937 (Given - Provider: Tamia Olson RN)1556 (Given - Provider: Tamia Olson RN) 0417 (See Alternative - Provider: Sarbjit Harvey RN) promethazine (PHENERGAN) tablet 12.5 mg(Linked Group 1) 12.5 mg, Oral, EVERY 6 HOURS PRN, Nausea, Vomiting, Starting 08/22/20 at 1548 1200 (See Alternative - Provider: Andrea Weeks RN)1739 (Given - Provider: Andrea Weeks RN) 0937 (See Alternative - Provider: Tamia Olson, CIRO)1556 (See Alternative - Provider: Tamia Olson, CIRO) 0417 (Given - Provider: Sarbjit Harvey RN) sodium chloride flush 0.9 % injection 5-40 mL 5-40 mL, Intravenous, PRN, Line Care, After every IV line use, Starting Thu08/22/20 at 1548, For Line Patency: Peripheral IV = 5 mL; Midline or Central Line = 10 mL/lumen. If following IV push medication, administer flush at same rate as the IV push. Flush volume is determined by type of infusion therapy being given. For non-viscous solutions use: Peripheral IV = 5 mL Midline or Central Line = 10 mL/lumen For viscous solutions (i.e. blood components, parenteral nutrition, contrast media, or after obtaining blood sample) use: Peripheral IV = 10 mL Midline or Central Line = 20 mL/lumen Linked Groups Order Group 1: promethazine (PHENERGAN) tablet 12.5 mgJump to med 12.5 mg, Oral, EVERY 6 HOURS PRN, Nausea, Vomiting, Starting Thu08/22/20 at 1548 Or ondansetron (ZOFRAN) injection 4 mgJump to med 4 mg, Intravenous, EVERY 6 HOURS PRN, Nausea, Vomiting, Starting Thu08/22/20 at 1548
Administer if oral route cannot be used.
Scheduled Medication Order 09/11/2020 09/12/2020 09/13/2020 albuterol (PROVENTIL) nebulizer solution 2.5 mg (COMPLETED) 2.5 mg, Nebulization, ONCE, On Thu09/11/20 at 1021, For 1 dose 1030 (Given - Provider: Sherlyn Posada RCP) albuterol (PROVENTIL) nebulizer solution 2.5 mg (COMPLETED) 2.5 mg, Nebulization, ONCE, On Thu09/11/20 at 1212, For 1 dose 1240 (Given - Provider: Sherlyn Posada RCP) aspirin chewable tablet 81 mg 81 mg, Oral, DAILY, First dose on Thu09/11/20 at 1841 2007 (Not Given - Provider: Irene Trejo RN - Reason: Other - Comment: will take in AM) 0802 (Given - Provider: Pastora Castellon RN) 0956 (Given - Provider: Ruby Mckinney RN) atorvastatin (LIPITOR) tablet 80 mg 80 mg, Oral, NIGHTLY, First dose on Thu09/11/20 at 2100 2037 (Given - Provider: Irene Trejo, CIRO) 211 (Given - Provider: Chante Ornelas, CIRO) 2100 (Due) cyclophosphamide (CYTOXAN) 50 MG capsule CAPS 150 mg 150 mg, Oral, 2 TIMES DAILY, First dose on Thu09/12/20 at 0915, Do not crush or break. Hazardous Medication -- Refer to facility policy for handling and disposal. 1359 (Given - Provider: Zina Padilla RN)2118 (Given - Provider: Chante Ornelas RN) 1027 (Not Given - Provider: Ruby Mckinney RN - Reason: Patient/family refused)1600 (Due) dicyclomine (BENTYL) capsule 10 mg 10 mg, Oral, 3 TIMES DAILY BEFORE MEALS, First dose on Thu09/11/20 at 1841 2035 (Given - Provider: Irene Trejo, CIRO) 0635 (Given - Provider: Irene Trejo, CIRO)1359 (Given - Provider: Zina Padilla RN)1649 (Given - Provider: Pastora Castellon RN) 0624 (Given - Provider: Chante Ornelas, CIRO)1100 (Due)1600 (Due) heparin (porcine) injection 5,000 Units 5,000 Units, Subcutaneous, EVERY 8 HOURS SCHEDULED (3 times per day), First dose on Thu09/11/20 at 2200 2036 (Given - Provider: Irene Trejo, CIRO) 0635 (Given - Provider: Irene Trejo, CIRO)1359 (Given - Provider: Zina Padilla RN)2130 (Given - Provider: Chante Ornelas RN) 0624 (Given - Provider: Chante Ornelas RN)1400 (Due)2200 (Due) ipratropium (ATROVENT) 0.02 % nebulizer solution 0.5 mg (COMPLETED) 0.5 mg, Nebulization, ONCE, On Thu09/11/20 at 1021, For 1 dose 1030 (Given - Provider: Sherlyn Posada RCP) ipratropium (ATROVENT) 0.02 % nebulizer solution 0.5 mg (COMPLETED) 0.5 mg, Nebulization, ONCE, On Thu09/11/20 at 1212, For 1 dose 1240 (Given - Provider: Sherlyn Posada RCP) ipratropium-albuterol (DUONEB) nebulizer solution 1 ampule 1 ampule, Inhalation, EVERY 4 HOURS WHILE AWAKE, First dose on Thu09/11/20 at 2000 2136 (Not Given - Provider: Deb Plata RCP - Reason: Patient/family refused - Comment: pt states he is in too much pain) 0937 (Given - Provider: Sherlyn Posada RCP)1328 (Given - Provider: Sherlyn Posada RCP)1704 (Not Given - Provider: Sherlyn Posada RCP - Reason: Nausea)2200 (Given - Provider: Sadia Singh RCP) 1026 (Not Given - Provider: Raj Early RCP - Reason: Patient/family refused)1200 (Due)1600 (Due)2000 (Due) lidocaine 4 % external patch 1 patch 1 patch, Transdermal, Administer over 12 Hours, DAILY, First dose on Thu09/11/20 at 1841, Apply patch to back. Patch may remain in place for up to 12 hours in any 24 hour period. 2036 (Patch Applied - Provider: Irene Trejo RN) 0803 (Patch Applied - Provider: Pastora Castellon RN)2130 (Patch Removed - Provider: Chante Ornelas RN) 0956 (Patch Applied - Provider: Ruby Mckinney RN)2156 (Due: Patch Removed - Provider: Ruby Mckinney RN) methocarbamol (ROBAXIN) injection 1,000 mg (COMPLETED) 1,000 mg, Intravenous, ONCE, On Thu09/11/20 at 1021, For 1 dose 1108 (Given - Provider: Crystal Nelson RN) morphine (PF) injection 2 mg (COMPLETED) 2 mg, Intravenous, ONCE, On Thu09/13/20 at 0015, For 1 dose, If oral and IV narcotics ordered, use oral first and only use IV if oral is ineffective or cannot take oral. Do Not give oral and IV within 1 hour of each other unless specifically ordered. 0045 (Given - Provider: Chante Ornelas RN) morphine (PF) injection 4 mg (COMPLETED) 4 mg, Intravenous, ONCE, On Thu09/12/20 at 0145, For 1 dose, If oral and IV narcotics ordered, use oral first and only use IV if oral is ineffective or cannot take oral. Do Not give oral and IV within 1 hour of each other unless specifically ordered. 0147 (Given - Provider: Irene Trejo RN) morphine injection 4 mg (COMPLETED) 4 mg, Intravenous, ONCE, On Thu09/11/20 at 1530, For 1 dose, If oral and IV narcotics ordered, use oral first and only use IV if oral is ineffective or cannot take oral. Do Not give oral and IV within 1 hour of each other unless specifically ordered. 153 (Given - Provider: Crystal Nelson RN) pantoprazole (PROTONIX) tablet 40 mg 40 mg, Oral, 2 TIMES DAILY WITH MEALS, First dose on Thu09/11/20 at 1841, Do not crush or break. 2035 (Given - Provider: Irene Trejo, CIRO) 0802 (Given - Provider: Pastora Castellon, CIRO)1649 (Given - Provider: Pastora Castellon RN) 0956 (Given - Provider: Ruby Mckinney RN)1700 (Due) predniSONE (DELTASONE) tablet 60 mg (CANCELED) 60 mg, Oral, DAILY, First dose on Thu09/11/20 at 1841, For 5 days 2007 (Not Given - Provider: Irene Trejo RN - Reason: Other - Comment: pt not taking) 0802 (Given - Provider: aPstora Castellon, CIRO) senna (SENOKOT) 8.8 MG/5ML syrup 8.8 mg 8.8 mg (5 mL), Oral, NIGHTLY, First dose on Thu09/11/20 at 2100, First line therapy for constipation 2034 (Not Given - Provider: Irene Trejo RN - Reason: Patient/family refused) 2116 (Not Given - Provider: Chante Ornelas RN - Reason: Patient/family refused) 2099 (Due) sodium chloride flush 0.9 % injection 5-40 mL 5-40 mL, Intravenous, EVERY 12 HOURS SCHEDULED (2 times per day), First dose on Thu09/11/20 at 2100, For Line Patency: Peripheral IV = 5 mL; Midline or Central Line = 10 mL/lumen. If following IV push medication, administer flush at same rate as the IV push. Flush volume is determined by type of infusion therapy being given. For non-viscous solutions use: Peripheral IV = 5 mL Midline or Central Line = 10 mL/lumen For viscous solutions (i.e. blood components, parenteral nutrition, contrast media, or after obtaining blood sample) use: Peripheral IV = 10 mL Midline or Central Line = 20 mL/lumen 2036 (Given - Provider: Irene Trejo RN) 0804 (Given - Provider: Pastora Castellon RN)2118 (Given - Provider: Chante Ornelas RN) 102 (Not Given - Provider: Ruby Mckinney RN - Reason: Loss of IV access)2100 (Due) sulfamethoxazole-trimet hoprim (BACTRIM DS;SEPTRA DS) 800-160 MG per tablet 1 tablet 1 tablet, Oral, THREE TIMES WEEKLY (Once per day on Thu), First dose on Thu09/12/20 at 0900, Thursday 08 (Given - Provider: Pastora Castellon RN) tamsulosin (FLOMAX) capsule 0.4 mg 0.4 mg, Oral, DAILY, First dose on Thu09/11/20 at 1841, Do not crush or break. 2035 (Given - Provider: Irene Trejo RN) 0802 (Given - Provider: Pastora Castellon RN) 0956 (Given - Provider: Ruby Mckinney RN) torsemide (DEMADEX) tablet 20 mg 20 mg, Oral, 2 TIMES DAILY, First dose on Thu09/11/20 at 1845 2035 (Given - Provider: Irene Trejo RN) 0802 (Given - Provider: Pastora Castellon RN)1649 (Given - Provider: Pastora Castellon RN) 0956 (Given - Provider: Ruby Mckinney RN)1800 (Due) traMADol (ULTRAM) tablet 50 mg (COMPLETED) 50 mg, Oral, ONCE, On Thu09/11/20 at 2245, For 1 dose 2250 (Given - Provider: Irene Trejo RN) PRN Medication Order 09/11/2020 09/12/2020 09/13/2020 0.9 % sodium chloride infusion 25 mL, Intravenous, at 100 mL/hr, PRN, If patient receiving piggyback infusions without ordered maintenance IV fluids or with frequent/long duration piggyback infusions, Starting on Thu09/11/20 at 1840, Administer at the same rate as the piggyback being infused. acetaminophen (TYLENOL) suppository 650 mg(Linked Group 1) 650 mg, Rectal, EVERY 6 HOURS PRN, Pain Mild (1-3), Fever, For temp greater than 100.4 F (38 C), Starting on Thu09/11/20 at 1840, Administer if oral route cannot be used. acetaminophen (TYLENOL) tablet 650 mg(Linked Group 1) 650 mg, Oral, EVERY 6 HOURS PRN, Pain Mild (1-3), Fever, For temp greater than 100.4 F (38 C), Starting on Thu09/11/20 at 1840, Maximum dose of acetaminophen is 4000 mg from all sources in 24 hours. baclofen (LIORESAL) tablet 5 mg 5 mg, Oral, 3 TIMES DAILY PRN, back pain, Starting on Thu09/11/20 at 1840 2036 (Given - Provider: Irene Trejo RN) 0356 (Given - Provider: Chante Ornelas, CIRO) melatonin tablet 6 mg 6 mg, Oral, NIGHTLY PRN, Sleep, Starting on Thu09/11/20 at 2227 2250 (Given - Provider: Irene Trejo RN) 2118 (Given - Provider: Chante Ornelas, CIRO) ondansetron (ZOFRAN) injection 4 mg(Linked Group 2) 4 mg, Intravenous, EVERY 6 HOURS PRN, Nausea, Vomiting, Starting on Thu09/11/20 at 1840, Administer if oral route cannot be used. 0147 (Given - Provider: Irene Trejo, CIRO) oxyCODONE (ROXICODONE) immediate release tablet 10 mg(Linked Group 3) 10 mg, Oral, EVERY 4 HOURS PRN, Pain Severe (7-10), Starting on Thu09/12/20 at 1344 1438 (Given - Provider: Pastora Castellon RN)2118 (Given - Provider: Chante Ornelas RN) 0356 (Given - Provider: Chante Ornelas RN)1000 (Given - Provider: Ruby Permetti, RN) oxyCODONE (ROXICODONE) immediate release tablet 5 mg(Linked Group 3) 5 mg, Oral, EVERY 4 HOURS PRN, Pain Moderate (4-6), Starting on Thu09/12/20 at 1344 1438 (See Alternative - Provider: Pastora Castellon RN)2118 (See Alternative - Provider: Chante Ornelas, RN) 0356 (See Alternative - Provider: Chante Ornelas, CIRO)1000 (See Alternative - Provider: Ruby Mckinney RN) promethazine (PHENERGAN) tablet 12.5 mg(Linked Group 2) 12.5 mg, Oral, EVERY 6 HOURS PRN, Nausea, Vomiting, Starting on Thu09/11/20 at 1840 0147 (See Alternative - Provider: Irene Trejo RN) sodium chloride flush 0.9 % injection 5-40 mL 5-40 mL, Intravenous, PRN, Line Care, After every IV line use, Starting on Thu09/11/20 at 1840, For Line Patency: Peripheral IV = 5 mL; Midline or Central Line = 10 mL/lumen. If following IV push medication, administer flush at same rate as the IV push. Flush volume is determined by type of infusion therapy being given. For non-viscous solutions use: Peripheral IV = 5 mL Midline or Central Line = 10 mL/lumen For viscous solutions (i.e. blood components, parenteral nutrition, contrast media, or after obtaining blood sample) use: Peripheral IV = 10 mL Midline or Central Line = 20 mL/lumen Linked Groups Order Group 1: acetaminophen (TYLENOL) tablet 650 mgJump to med 650 mg, Oral, EVERY 6 HOURS PRN, Pain Mild (1-3), Fever, For temp greater than 100.4 F (38 C), Starting on Thu09/11/20 at 1840
Maximum dose of acetaminophen is 4000 mg from all sources in 24 hours.
Or acetaminophen (TYLENOL) suppository 650 mgJump to med 650 mg, Rectal, EVERY 6 HOURS PRN, Pain Mild (1-3), Fever, For temp greater than 100.4 F (38 C), Starting on Thu09/11/20 at 1840
Administer if oral route cannot be used.
Group 2: promethazine (PHENERGAN) tablet 12.5 mgJump to med 12.5 mg, Oral, EVERY 6 HOURS PRN, Nausea, Vomiting, Starting on Thu09/11/20 at 1840 Or ondansetron (ZOFRAN) injection 4 mgJump to med 4 mg, Intravenous, EVERY 6 HOURS PRN, Nausea, Vomiting, Starting on Thu09/11/20 at 1840
Administer if oral route cannot be used.
Group 3: oxyCODONE (ROXICODONE) immediate release tablet 5 mgJump to med 5 mg, Oral, EVERY 4 HOURS PRN, Pain Moderate (4-6), Starting on Thu09/12/20 at 1344 Or oxyCODONE (ROXICODONE) immediate release tablet 10 mgJump to med 10 mg, Oral, EVERY 4 HOURS PRN, Pain Severe (7-10), Starting on Thu09/12/20 at 1344 Scheduled Medication Order 09/29/2020 09/30/2020 10/01/2020 0.9 % sodium chloride bolus (COMPLETED) 1,000 mL (6.12 mL/kg), Intravenous, at 2,000 mL/hr, Administer over 0.5 Hours, ONCE, On Thu09/29/20 at 0306, For 1 dose 0318 (New Bag - Provider: Rajesh Cabello RN)0437 (Stopped - Provider: Rajesh Cabello RN) acetaminophen (TYLENOL) tablet 1,000 mg 1,000 mg, Oral, EVERY 8 HOURS, First dose on Thu09/29/20 at 0600, Maximum dose of acetaminophen is 4000 mg from all sources in 24 hours. 0628 (Given - Provider: Rajesh Cabello RN)1652 (Given - Provider: Michelle Devlin, CIRO)2105 (Given - Provider: Sarbjit Harvey, CIRO) 0504 (Given - Provider: Sarbjit Harvey, RN)1407 (Given - Provider: Елена Francois RN)2201 (Given - Provider: Akanksha Olivera, CIRO) 0520 (Given - Provider: Akanksha Olivera, CIRO)1442 (Given - Provider: Terri Guerrero RN)2200 (Due) aspirin chewable tablet 81 mg 81 mg, Oral, DAILY, First dose on Thu09/29/20 at 1000 1056 (Given - Provider: Michelle Devlin, RN) 0833 (Given - Provider: Елена Francois, RN) 0938 (Given - Provider: Terri Guerrero, CIRO) atorvastatin (LIPITOR) tablet 80 mg 80 mg, Oral, NIGHTLY, First dose on 09/29/20 at 2100 2106 (Given - Provider: Sarbjit Harvey, RN) 204 (Given - Provider: Akanksha Olivera, RN) 2100 (Due) cyclophosphamide (CYTOXAN) 50 MG capsule CAPS 150 mg 150 mg, Oral, 2 TIMES DAILY, First dose on 09/29/20 at 1000, Do not crush or break. Hazardous Medication -- Refer to facility policy for handling and disposal. 1057 (Given - Provider: Michelle Devlin, CIRO)2106 (Given - Provider: Sarbjit Harvey, RN) 0834 (Given - Provider: Елена Francois, CIRO)203 (Given - Provider: Akanksha Olivera, RN) 0940 (Given - Provider: Terri Guerrero, CIRO)2100 (Due) enoxaparin (LOVENOX) injection 40 mg 40 mg, Subcutaneous, DAILY, First dose on 09/29/20 at 1000 1057 (Given - Provider: Michelle Devlin, CIRO) 0834 (Given - Provider: Елена Francois, CIRO) 0938 (Given - Provider: Terri Guerrero, CIRO) furosemide (LASIX) injection 40 mg (COMPLETED) 40 mg, Intravenous, ONCE, On 09/29/20 at 0606, For 1 dose 0628 (Given - Provider: Rajesh Cabello RN) furosemide (LASIX) injection 40 mg (COMPLETED) 40 mg, Intravenous, 2 TIMES DAILY, First dose on 09/29/20 at 1800, For 2 doses 1849 (Given - Provider: Michelle Devlin, CIRO) 0834 (Given - Provider: Елена Francois, CIRO) furosemide (LASIX) injection 40 mg (CANCELED) 40 mg, Intravenous, 2 TIMES DAILY, First dose (after last reorder) on 09/30/20 at 1800, For 2 doses 1703 (Given - Provider: Елена Francois, CIRO) 1030 (Not Given - Provider: Terri Guerrero RN - Reason: Other - Comment: order D/C) furosemide (LASIX) injection 40 mg 40 mg, Intravenous, 2 TIMES DAILY, First dose on 10/01/20 at 1000, For 2 doses 0942 (Given - Provider: Terri Guerrero RN)1800 (Due) ipratropium-albuterol (DUONEB) nebulizer solution 1 ampule 1 ampule, Inhalation, EVERY 4 HOURS WHILE AWAKE, First dose on 09/29/20 at 2145 2145 (Due) 1011 (Given - Provider: Chante Daugherty BURN OUT SCARFING OPERATOR)1200 (Due)1600 (Given - Provider: Kendra Powers BURN OUT SCARFING OPERATOR)2200 (Not Given - Provider: Shahzad Clark RCP - Reason: Patient/family refused) 1108 (Given - Provider: Sarbjit Arora RCP)1442 (Given - Provider: Sarbjit Arora RCP)1600 (Due)2000 (Due) lidocaine 4 % external patch 1 patch 1 patch, Transdermal, Administer over 12 Hours, DAILY, First dose on 09/29/20 at 1115, Apply patch to back and right flank. Patch may remain in place for up to 12 hours in any 24 hour period. 1105 (Patch Applied - Provider: Michelle Devlin RN)2115 (Patch Removed - Provider: Sarbjit Harvey RN) 0834 (Patch Applied - Provider: Елена Francois RN)2035 (Patch Removed - Provider: Akanksha Olivera RN) 0937 (Patch Applied - Provider: Terri Guerrero RN)2136 (Due: Patch Removed - Provider: Terri Guerrero RN) metOLazone (ZAROXOLYN) tablet 2.5 mg (CANCELED) 2.5 mg, Oral, DAILY, First dose on 09/29/20 at 0930, Give 30 minutes before furosemide 1056 (Given - Provider: Michelle Devlin RN) metOLazone (ZAROXOLYN) tablet 2.5 mg 2.5 mg, Oral, DAILY, First dose (after last modification) on 09/30/20 at 0830, Give 30 minutes before furosemide 0833 (Given - Provider: Елена Francois RN) 0938 (Given - Provider: Terri Guerrero RN) morphine injection 4 mg (COMPLETED) 4 mg, Intravenous, ONCE, On 09/29/20 at 0306, For 1 dose, If oral and IV narcotics ordered, use oral first and only use IV if oral is ineffective or cannot take oral. Do Not give oral and IV within 1 hour of each other unless specifically ordered. 0319 (Given - Provider: Rajesh Cabello RN) morphine injection 4 mg (COMPLETED) 4 mg, Intravenous, ONCE, On 09/29/20 at 0428, For 1 dose, If oral and IV narcotics ordered, use oral first and only use IV if oral is ineffective or cannot take oral. Do Not give oral and IV within 1 hour of each other unless specifically ordered. 0436 (Given - Provider: Rajesh Cabello RN) ondansetron (ZOFRAN) injection 4 mg (COMPLETED) 4 mg, Intravenous, ONCE, On 09/29/20 at 0306, For 1 dose 0319 (Given - Provider: Rajesh Cabello RN) polyethylene glycol (GLYCOLAX) packet 17 g 17 g, Oral, DAILY, First dose on 09/29/20 at 0915 1052 (Not Given - Provider: Michelle Devlin RN - Reason: Patient/family refused) 0837 (Not Given - Provider: Елена Francois RN - Reason: Patient/family refused) 1005 (Not Given - Provider: Terri Guerrero RN - Reason: Patient/family refused) potassium chloride (KLOR-CON M) extended release tablet 40 mEq (COMPLETED) 40 mEq, Oral, ONCE, On Thu09/30/20 at 0700, For 1 dose, Do not crush, chew, or suck on tablet. Tablet may also be broken in half and each half swallowed separately. 0833 (Given - Provider: Елена Francois RN) potassium chloride (KLOR-CON M) extended release tablet 40 mEq 40 mEq, Oral, 2 TIMES DAILY, First dose on 10/01/20 at 0900, Do not crush, chew, or suck on tablet. Tablet may also be broken in half and each half swallowed separately. 0938 (Given - Provider: Terri Guerrero RN)2100 (Due) pregabalin (LYRICA) capsule 75 mg 75 mg, Oral, 2 TIMES DAILY, First dose on 09/29/20 at 0606 0703 (Given - Provider: Rajesh Cabello RN)210 (Given - Provider: Sarbjit Harvey, RN) 08 (Given - Provider: Елена Francois, CIRO)2037 (Given - Provider: Akanksha Olivera, RN) 09 (Given - Provider: Terri Guerrero, RN)2100 (Due) sennosides-docusate sodium (SENOKOT-S) 8.6-50 MG tablet 2 tablet 2 tablet, Oral, DAILY, First dose on 09/29/20 at 1000 1052 (Not Given - Provider: Michelle Devlin RN - Reason: Patient/family refused) 0834 (Given - Provider: Елена Francois RN) 1007 (Not Given - Provider: Terri Guerrero RN - Reason: Patient/family refused) sodium chloride flush 0.9 % injection 5-40 mL 5-40 mL, Intravenous, EVERY 12 HOURS SCHEDULED (2 times per day), First dose on 09/29/20 at 0915, For Line Patency: Peripheral IV = 5 mL; Midline or Central Line = 10 mL/lumen. If following IV push medication, administer flush at same rate as the IV push. Flush volume is determined by type of infusion therapy being given. For non-viscous solutions use: Peripheral IV = 5 mL Midline or Central Line = 10 mL/lumen For viscous solutions (i.e. blood components, parenteral nutrition, contrast media, or after obtaining blood sample) use: Peripheral IV = 10 mL Midline or Central Line = 20 mL/lumen 1110 (Given - Provider: Michelle Devlin RN)2114 (Not Given - Provider: Sarbjit Harvey, CIRO - Reason: Other) 0835 (Given - Provider: Елена Francois, CIRO)2049 (Given - Provider: Akanksha Olivera, RN) 1007 (Given - Provider: Terri Guerrero, CIRO)2100 (Due) sulfamethoxazole-trimeth oprim (BACTRIM DS;SEPTRA DS) 800-160 MG per tablet 1 tablet 1 tablet, Oral, EVERY MWF, First dose on 10/01/20 at 0830 0938 (Given - Provider: Terri Guerrero, CIRO) tamsulosin (FLOMAX) capsule 0.4 mg 0.4 mg, Oral, DAILY, First dose on 09/29/20 at 1000, Do not crush or break. 1056 (Given - Provider: Michelle Devlin RN) 0833 (Given - Provider: Елена Francois, RN) 0938 (Given - Provider: Terri Guerrero, RN) PRN Medication Order 09/29/2020 09/30/2020 10/01/2020 0.9 % sodium chloride infusion 25 mL, Intravenous, at 100 mL/hr, PRN, If patient receiving piggyback infusions without ordered maintenance IV fluids or with frequent/long duration piggyback infusions, Starting on 09/29/20 at 0840, Administer at the same rate as the piggyback being infused. acetaminophen (TYLENOL) suppository 650 mg(Linked Group 1) 650 mg, Rectal, EVERY 6 HOURS PRN, Pain Mild (1-3), Fever, For temp greater than 100.4 F (38 C), Starting on 09/29/20 at 0840, Administer if oral route cannot be used. acetaminophen (TYLENOL) tablet 650 mg(Linked Group 1) 650 mg, Oral, EVERY 6 HOURS PRN, Pain Mild (1-3), Fever, For temp greater than 100.4 F (38 C), Starting on 09/29/20 at 0840, Maximum dose of acetaminophen is 4000 mg from all sources in 24 hours. albuterol (PROVENTIL) nebulizer solution 2.5 mg 2.5 mg, Nebulization, EVERY 4 HOURS PRN, Wheezing, Shortness of Breath, Starting on 10/01/20 at 0003 0010 (Given - Provider: Shahzad Clark BURN OUT SCARFING OPERATOR) baclofen (LIORESAL) tablet 10 mg 10 mg, Oral, 3 TIMES DAILY PRN, Muscle spasms, Starting on 09/29/20 at 0852 1056 (Given - Provider: Michelle Devlin RN)2106 (Given - Provider: Sarbjit Harvey RN) 0506 (Given - Provider: Sarbjit Harvey RN)1411 (Given - Provider: Елена Francois, CIRO)2038 (Given - Provider: Akanksha Olivera RN) 0938 (Given - Provider: Terri Guerrero, CIRO) melatonin tablet 3 mg 3 mg, Oral, NIGHTLY PRN, Sleep, Starting on 09/29/20 at 2100 2105 (Given - Provider: Sarbjit Harvey RN) 2037 (Given - Provider: Akanksha Olivera RN) ondansetron (ZOFRAN) injection 4 mg(Linked Group 2) 4 mg, Intravenous, EVERY 6 HOURS PRN, Nausea, Vomiting, Starting on 09/29/20 at 0840, Administer if oral route cannot be used. 0619 (See Alternative - Provider: Sarbjit Harvey RN) 0950 (Given - Provider: Terri Guerrero RN) ondansetron (ZOFRAN-ODT) disintegrating tablet 4 mg(Linked Group 2) 4 mg, Oral, EVERY 8 HOURS PRN, Nausea, Vomiting, Starting on 09/29/20 at 0840 0619 (Given - Provider: Sarbjit Harvey RN) 0950 (See Alternative - Provider: Terri Guerrero RN) polyethylene glycol (GLYCOLAX) packet 17 g 17 g, Oral, DAILY PRN, Constipation, Starting on 09/29/20 at 0840, First line therapy for constipation sodium chloride flush 0.9 % injection 5-40 mL 5-40 mL, Intravenous, PRN, Line Care, After every IV line use, Starting on 09/29/20 at 0840, For Line Patency: Peripheral IV = 5 mL; Midline or Central Line = 10 mL/lumen. If following IV push medication, administer flush at same rate as the IV push. Flush volume is determined by type of infusion therapy being given. For non-viscous solutions use: Peripheral IV = 5 mL Midline or Central Line = 10 mL/lumen For viscous solutions (i.e. blood components, parenteral nutrition, contrast media, or after obtaining blood sample) use: Peripheral IV = 10 mL Midline or Central Line = 20 mL/lumen Linked Groups Order Group 1: acetaminophen (TYLENOL) tablet 650 mgJump to med 650 mg, Oral, EVERY 6 HOURS PRN, Pain Mild (1-3), Fever, For temp greater than 100.4 F (38 C), Starting on 09/29/20 at 0840
Maximum dose of acetaminophen is 4000 mg from all sources in 24 hours.
Or acetaminophen (TYLENOL) suppository 650 mgJump to med 650 mg, Rectal, EVERY 6 HOURS PRN, Pain Mild (1-3), Fever, For temp greater than 100.4 F (38 C), Starting on 09/29/20 at 0840
Administer if oral route cannot be used.
Group 2: ondansetron (ZOFRAN-ODT) disintegrating tablet 4 mgJump to med 4 mg, Oral, EVERY 8 HOURS PRN, Nausea, Vomiting, Starting on 09/29/20 at 0840 Or ondansetron (ZOFRAN) injection 4 mgJump to med 4 mg, Intravenous, EVERY 6 HOURS PRN, Nausea, Vomiting, Starting on 09/29/20 at 0840
Administer if oral route cannot be used.
Scheduled Medication Order 10/02/2020 10/03/2020 10/04/2020 cyclobenzaprine (FLEXERIL) tablet 5 mg (COMPLETED) 5 mg, Oral, ONCE, On Monica 10/04/20 at 1443, For 1 dose 1505 (Given - Provid er: Lucy Freeman RN) HYDROcodone-acetaminophen (NORCO) 5-325 MG per tablet 1 tablet (COMPLETED) 1 tablet, Oral, ONCE, On Monica 10/04/20 at 1443, For 1 dose, Maximum dose of acetaminophen is 4000 mg from all sources in 24 hours. 1506 (Given - Provid er: Lucy Freeman RN) LORazepam (ATIVAN) tablet 1 mg (COMPLETED) 1 mg, Oral, ONCE, On Monica 10/04/20 at 1619, For 1 dose 1704 (Given - Provid er: Lucy Freeman RN) oxyCODONE-acetaminophen (PERCOCET) 5-325 MG per tablet 1 tablet (COMPLETED) 1 tablet, Oral, ONCE, On Monica 10/04/20 at 1652, For 1 dose, Maximum dose of acetaminophen is 4000 mg from all sources in 24 hours. 1704 (Given - Provid er: Lucy Freeman RN) Scheduled Medication Order 10/24/2020 10/25/2020 10/26/2020 acetaminophen (TYLENOL) tablet 1,000 mg (COMPLETED) 1,000 mg, Oral, ONCE, On Thu10/26/20 at 1100, For 1 dose, Maximum dose of acetaminophen is 4000 mg from all sources in 24 hours. Do not administer if patient has taken tylenol <4 hours earlier. Do not give if contraindicated ie. patient has active liver disease or cirrhosis., Pre-op (day of surgery) 1107 (Given - Provid er: Naima Larios RN) ceFAZolin (ANCEF) 3,000 mg in dextrose 5 % 100 mL IVPB (COMPLETED) 3,000 mg, Intravenous, [employer] TO O.R., 1 dose, On Thu10/26/20 at 1100, Administer within 1 hour prior to incision. Repeat in 2 hours after initial dose if still intra-op., Pre-op (day of surgery) 1135 (Given by Other Clinician - Provider: Jenni Hook RN - Comment: Given in OR) famotidine (PEPCID) tablet 20 mg (COMPLETED) 20 mg, Oral, ONCE, On Thu10/26/20 at 1100, For 1 dose, Pre-op (day of surgery) 1107 (Given - Provid er: Naima Larios RN) gabapentin (NEURONTIN) capsule 100 mg (COMPLETED) 100 mg, Oral, ONCE, On Thu10/26/20 at 1100, For 1 dose, For Age >69, or Low GFR, Pre-op (day of surgery) 1107 (Given - Provid er: Naima Larios RN) sodium chloride flush 0.9 % injection 5-40 mL 5-40 mL, Intravenous, EVERY 12 HOURS SCHEDULED (2 times per day), First dose on Thu10/26/20 at 1100, For Line Patency: Peripheral IV = 5 mL; Midline or Central Line = 10 mL/lumen. If following IV push medication, administer flush at same rate as the IV push. Flush volume is determined by type of infusion therapy being given. For non-viscous solutions use: Peripheral IV = 5 mL Midline or Central Line = 10 mL/lumen For viscous solutions (i.e. blood components, parenteral nutrition, contrast media, or after obtaining blood sample) use: Peripheral IV = 10 mL Midline or Central Line = 20 mL/lumen, Pre-op (day of surgery) 1100 (Due)2100 (Due) Continuous Medication Order 10/24/2020 10/25/2020 10/26/2020 lactated ringers infusion Intravenous, at 50 mL/hr, CONTINUOUS, Starting on Thu10/26/20 at 1100, Upon admission to sameday - please start iv if patient does not have iv access. Use 500ml NS for patients on dialysis., Pre-op (day of surgery) 1108 (New Bag - Prov ider: Naima Larios RN) PRN Medication Order 10/24/2020 10/25/2020 10/26/2020 0.9 % sodium chloride bolus 500 mL (2.99 mL/kg), Intravenous, at 250 mL/hr, Administer over 2 Hours, ONCE PRN, Nausea, Starting on Thu10/26/20 at 1118, For 1 dose, PACU only 0.9 % sodium chloride infusion 25 mL, Intravenous, at 100 mL/hr, PRN, If patient receiving piggyback infusions without ordered maintenance IV fluids or with frequent/long duration piggyback infusions, Starting on Thu10/26/20 at 1043, Administer at the same rate as the piggyback being infused., Pre-op (day of surgery) ALPRAZolam (NIRAVAM) dissolvable tablet 0.25 mg 0.25 mg, Oral, PRN, Anxiety, Starting on Thu10/26/20 at 1043, Pre-op (day of surgery) diphenhydrAMINE (BENADRYL) injection 12.5 mg 12.5 mg, Intravenous, ONCE PRN, Itching, Starting on Thu10/26/20 at 1118, For 1 dose, for use Sameday and, PACU only fentaNYL (SUBLIMAZE) injection 25 mcg 25 mcg, Intravenous, EVERY 5 MIN PRN, Pain Moderate (4-6), Starting on Thu10/26/20 at 1118, For 3 doses, Phase I and Phase II- Initial therapy for moderate pain (4-6). Restricted to a 50 minute time frame starting when the patient can verbally state their pain score. If after 2 doses the pain score does not decrease by more than one point, then go to secondary medication. Ifsecondary medications are utilized, do not return to initial therapy medications. SDS and, PACU only fentaNYL (SUBLIMAZE) injection 50 mcg 50 mcg, Intravenous, EVERY 5 MIN PRN, Pain Severe (7-10), Starting on Thu10/26/20 at 1118, For 3 doses, Phase I or Phase II- Initial therapy for severe pain (7-10). Restricted to a 50 minute time frame starting when the patient can verbally state their pain score. If after 2 doses the pain score does not decrease by more than one point, then go to secondary medication. If secondary medications are utilized, do not return to initial therapy medications.Sameday and, PACU only 1235 (Given - Provid er: Jenni Hook RN) hydrALAZINE (APRESOLINE) injection 5 mg 5 mg, Intravenous, EVERY 10 MIN PRN, High Blood Pressure, Starting on Thu10/26/20 at 1118, PRN for SBP > 160 for 2 consecutive measurements, and if one of the following conditions is met: 1) If IV labetolol is ineffective. 2) If HR is under 60. 3) If patient has heart block, COPD or asthma. If both labetalol and hydralazine ineffective, notify anesthesiologist. for use Sameday and, PACU only HYDROmorphone (DILAUDID) injection 0.25 mg 0.25 mg, Intravenous, EVERY 5 MIN PRN, Pain Moderate (4-6), Starting on Thu10/26/20 at 1118, For 4 doses, Phase I - Secondary therapy to be used after initial therapy medication doses are ineffective (pain score does not decrease by more than 1 point). If secondary medications are utilized, do not return to initial therapy medications., PACU only HYDROmorphone (DILAUDID) injection 0.5 mg 0.5 mg, Intravenous, EVERY 5 MIN PRN, Pain Severe (7-10), Starting on Thu10/26/20 at 1118, For 4 doses, Phase I - Secondary therapy to be used after initial therapy medication doses are ineffective (pain score does not decrease by more than 1 point). If secondary medications are utilized, do not return to initial therapy medications., PACU only 1203 (Given - Provid er: Demetri Barker RN) iopamidol (ISOVUE-300) 61 % injection 50 mL (COMPLETED) 50 mL, Intravenous, IMG ONCE PRN, Other, contrast provided to OR staff for Dr to inject intra-op, Starting on Thu10/26/20 at 1124, For 1 dose, Intra-op, Routine 1124 (Given by Other - Provider: Callie Lutton) labetalol (NORMODYNE;TRANDATE) injection 5 mg 5 mg, Intravenous, EVERY 10 MIN PRN, High Blood Pressure, Starting on Thu10/26/20 at 1118, PRN for SBP >160 for 2 consecutive measurements, if HR is 60 or greater. If beta camelia is contraindicated (HR less than 60, heart block, COPD or asthma) use hydralazine IV order. for use Sameday and, PACU only lidocaine PF 1 % injection 1 mL 1 mL, Intradermal, ONCE PRN, IV start, Starting on Thu10/26/20 at 1043, For 1 dose, Pre-op (day of surgery) meperidine (DEMEROL) injection 12.5 mg 12.5 mg, Intravenous, EVERY 5 MIN PRN, Shivering, , Starting on Thu10/26/20 at 1118, May give every 5 minutes to max of 50mg. for use Sameday and, PACU only ondansetron (ZOFRAN) injection 4 mg 4 mg, Intravenous, ONCE PRN, Nausea, Starting on Thu10/26/20 at 1118, For 1 dose, Initial antiemetic therapy. For use sameday and, PACU only oxyCODONE (ROXICODONE) immediate release tablet 10 mg (COMPLETED) 10 mg, Oral, PRN, Pain Severe (7-10), Starting on Thu10/26/20 at 1118, For 1 dose, PHASE II, PACU only 1245 (Given - Provid er: Jenni Hook RN) promethazine (PHENERGAN) injection 6.25 mg 6.25 mg, Intravenous, ONCE PRN, Nausea, Starting on Thu10/26/20 at 1118, For 1 dose, Caution if used IV:Check IV site for infiltrate prior to and during administration. Secondary antiemetic therapy. For use sameday and For IV administration, dilute to 10ml with normal saline. Must be administered over at least 10 minutes., PACU only sodium chloride flush 0.9 % injection 5-40 mL 5-40 mL, Intravenous, PRN, Line Care, Starting on Thu10/26/20 at 1043, For Line Patency: Peripheral IV = 5 mL; Midline or Central Line = 10 mL/lumen. If following IV push medication, administer flush at same rate as the IV push. Flush volume is determined by type of infusion therapy being given. For non-viscous solutions use: Peripheral IV = 5 mL Midline or Central Line = 10 mL/lumen For viscous solutions (i.e. blood components, parenteral nutrition, contrast media, or after obtaining blood sample) use: Peripheral IV = 10 mL Midline or Central Line = 20 mL/lumen, Pre-op (day of surgery) Scheduled Medication Order 10/28/2020 10/29/2020 10/30/2020 HYDROmorphone (DILAUDID) injection 1 mg (COMPLETED) 1 mg, Intravenous, ONCE, On Thu10/30/20 at 1930, For 1 dose, If oral and IV narcotics ordered, use oral first and only use IV if oral is ineffective or cannot take oral. Do Not give oral and IV within 1 hour of each other unless specifically ordered. 2010 (Given - Provid er: Zohreh Guerra RN) sodium chloride flush 0.9 % injection 3 mL(Linked Group 1) 3 mL, Intravenous, EVERY 8 HOURS, First dose on Thu10/30/20 at 1645, Flush line with 3-5 mL 1645 (Due) Linked Groups Order Group 1: Saline lock IV (COMPLETED) Routine, CONTINUOUS, Starting on Thu10/30/20 at 1645, Until Specified And sodium chloride flush 0.9 % injection 3 mLJump to med 3 mL, Intravenous, EVERY 8 HOURS, First dose on Thu10/30/20 at 1645
Flush line with 3-5 mL
Scheduled Medication Order 10/29/2020 10/30/2020 10/31/2020 fentaNYL (SUBLIMAZE) injection 50 mcg (COMPLETED) 50 mcg, Intravenous, ONCE, On Thu10/31/20 at 1706, For 1 dose, If oral and IV narcotics ordered, use oral first and only use IV if oral is ineffective or cannot take oral. Do Not give oral and IV within 1 hour of each other unless specifically ordered. 1716 (Given - Provid er: Zhane Cramer RN) fentaNYL (SUBLIMAZE) injection 50 mcg (COMPLETED) 50 mcg, Intravenous, ONCE, On Thu10/31/20 at 1923, For 1 dose, If oral and IV narcotics ordered, use oral first and only use IV if oral is ineffective or cannot take oral. Do Not give oral and IV within 1 hour of each other unless specifically ordered. 1944 (Given - Provid er: Rajesh Cabello RN) furosemide (LASIX) injection 80 mg (COMPLETED) 80 mg, Intravenous, ONCE, On Thu10/31/20 at 1812, For 1 dose 1943 (Given - Provid er: Rajesh Cabello RN) lidocaine (XYLOCAINE) 2 % uro-jet (COMPLETED) Topical, ONCE, On Thu10/31/20 at 1650, For 1 dose, For conte placement. Thanks. 1715 (Given - Provid er: Zhane Cramer RN) LORazepam (ATIVAN) injection 1 mg (COMPLETED) 1 mg, Intravenous, ONCE, On Thu10/31/20 at 1706, For 1 dose 1715 (Given - Provid er: Zhane Cramer RN) sodium chloride flush 0.9 % injection 3 mL(Linked Group 1) 3 mL, Intravenous, EVERY 8 HOURS, First dose on Thu10/31/20 at 1648, Flush line with 3-5 mL 1944 (Given - Provid er: Rajesh Cabello RN) Linked Groups Order Group 1: Saline lock IV (COMPLETED) Routine, CONTINUOUS, Starting on Thu10/31/20 at 1700, Until Specified And sodium chloride flush 0.9 % injection 3 mLJump to med 3 mL, Intravenous, EVERY 8 HOURS, First dose on Thu10/31/20 at 1648
Flush line with 3-5 mL
Scheduled Medication Order 10/30/2020 10/31/2020 11/01/2020 HYDROmorphone (DILAUDID) injection 1 mg (COMPLETED) 1 mg, Intravenous, ONCE, On Monica 11/01/20 at 0951, For 1 dose, If oral and IV narcotics ordered, use oral first and only use IV if oral is ineffective or cannot take oral. Do Not give oral and IV within 1 hour of each other unless specifically ordered. 1019 (Given - Provid er: Crystal Perales RN) morphine injection 4 mg (COMPLETED) 4 mg, Intravenous, ONCE, On Monica 11/01/20 at 0602, For 1 dose, If oral and IV narcotics ordered, use oral first and only use IV if oral is ineffective or cannot take oral. Do Not give oral and IV within 1 hour of each other unless specifically ordered. 0631 (Given - Provid er: Mann Kc RN) ondansetron (ZOFRAN) injection 4 mg (COMPLETED) 4 mg, Intravenous, ONCE, On Monica 11/01/20 at 0602, For 1 dose 0631 (Given - Provid er: Mann Kc RN) oxyCODONE-acetaminophen (PERCOCET) 5-325 MG per tablet 1 tablet (COMPLETED) 1 tablet, Oral, ONCE, On Monica 11/01/20 at 0809, For 1 dose, Maximum dose of acetaminophen is 4000 mg from all sources in 24 hours. 0845 (Given - Provid er: Crystal Perales RN) phenazopyridine (PYRIDIUM) tablet 200 mg (COMPLETED) 200 mg, Oral, ONCE, On Monica 11/01/20 at 0718, For 1 dose, Take with food. May cause discoloration of urine. 0801 (Given - Provid er: Crystal Perales RN) Scheduled Medication Order 11/17/2020 11/18/2020 11/19/2020 acetaminophen (TYLENOL) tablet 1,000 mg (COMPLETED) 1,000 mg, Oral, ONCE, On Thu11/19/20 at 1145, For 1 dose, Maximum dose of acetaminophen is 4000 mg from all sources in 24 hours. Do not administer if patient has taken tylenol <4 hours earlier. Do not give if contraindicated ie. patient has active liver disease or cirrhosis., Pre-op (day of surgery) 1143 (Given - Provid er: Inga Newell RN) ceFAZolin (ANCEF) 3,000 mg in dextrose 5 % 100 mL IVPB (COMPLETED) 3,000 mg, Intravenous, [employer] TO O.R., 1 dose, On Thu11/19/20 at 1145, Administer within 1 hour prior to incision. Repeat in 2 hours after initial dose if still intra-op., Pre-op (day of surgery) 1354 (Given by Other Clinician - Provider: Lucy Deluca RN) famotidine (PEPCID) tablet 20 mg (COMPLETED) 20 mg, Oral, ONCE, On Thu11/19/20 at 1145, For 1 dose, Pre-op (day of surgery) 1143 (Given - Provid er: Inga Newell RN) gabapentin (NEURONTIN) capsule 100 mg (COMPLETED) 100 mg, Oral, ONCE, On Thu11/19/20 at 1145, For 1 dose, For Age >69, or Low GFR, Pre-op (day of surgery) 1143 (Given - Provid er: Inga Newell RN) sodium chloride flush 0.9 % injection 5-40 mL 5-40 mL, Intravenous, EVERY 12 HOURS SCHEDULED (2 times per day), First dose on Thu11/19/20 at 1145, For Line Patency: Peripheral IV = 5 mL; Midline or Central Line = 10 mL/lumen. If following IV push medication, administer flush at same rate as the IV push. Flush volume is determined by type of infusion therapy being given. For non-viscous solutions use: Peripheral IV = 5 mL Midline or Central Line = 10 mL/lumen For viscous solutions (i.e. blood components, parenteral nutrition, contrast media, or after obtaining blood sample) use: Peripheral IV = 10 mL Midline or Central Line = 20 mL/lumen, Pre-op (day of surgery) 1145 (Due)2100 (Due) Continuous Medication Order 11/17/2020 11/18/2020 11/19/2020 lactated ringers infusion Intravenous, at 50 mL/hr, CONTINUOUS, Starting on Thu11/19/20 at 1145, Upon admission to sameday - please start iv if patient does not have iv access. Use 500ml NS for patients on dialysis., Pre-op (day of surgery) 1145 (Due) PRN Medication Order 11/17/2020 11/18/2020 11/19/2020 0.9 % sodium chloride bolus 500 mL (2.86 mL/kg), Intravenous, at 250 mL/hr, Administer over 2 Hours, ONCE PRN, Nausea, Starting on Thu11/19/20 at 1251, For 1 dose, PACU only 0.9 % sodium chloride infusion 25 mL, Intravenous, at 100 mL/hr, PRN, If patient receiving piggyback infusions without ordered maintenance IV fluids or with frequent/long duration piggyback infusions, Starting on Thu11/19/20 at 1123, Administer at the same rate as the piggyback being infused., Pre-op (day of surgery) ALPRAZolam (NIRAVAM) dissolvable tablet 0.25 mg 0.25 mg, Oral, PRN, Anxiety, Starting on Thu11/19/20 at 1123, Pre-op (day of surgery) 1143 (Given - Provid er: Inga Newell RN) diphenhydrAMINE (BENADRYL) injection 12.5 mg 12.5 mg, Intravenous, ONCE PRN, Itching, Starting on Thu11/19/20 at 1251, For 1 dose, for use Sameday and, PACU only fentaNYL (SUBLIMAZE) injection 25 mcg 25 mcg, Intravenous, EVERY 5 MIN PRN, Pain Moderate (4-6), Starting on Thu11/19/20 at 1251, For 3 doses, Phase I and Phase II- Initial therapy for moderate pain (4-6). Restricted to a 50 minute time frame starting when the patient can verbally state their pain score. If after 2 doses the pain score does not decrease by more than one point, then go to secondary medication. Ifsecondary medications are utilized, do not return to initial therapy medications. SDS and, PACU only fentaNYL (SUBLIMAZE) injection 50 mcg 50 mcg, Intravenous, EVERY 5 MIN PRN, Pain Severe (7-10), Starting on Thu11/19/20 at 1251, For 3 doses, Phase I or Phase II- Initial therapy for severe pain (7-10). Restricted to a 50 minute time frame starting when the patient can verbally state their pain score. If after 2 doses the pain score does not decrease by more than one point, then go to secondary medication. If secondary medications are utilized, do not return to initial therapy medications.Sameday and, PACU only 1408 (Given - Provid er: Lucy Deluca RN)1414 (Given - Provider: Lucy Deluca RN) hydrALAZINE (APRESOLINE) injection 5 mg 5 mg, Intravenous, EVERY 10 MIN PRN, High Blood Pressure, Starting on Thu11/19/20 at 1251, PRN for SBP > 160 for 2 consecutive measurements, and if one of the following conditions is met: 1) If IV labetolol is ineffective. 2) If HR is under 60. 3) If patient has heart block, COPD or asthma. If both labetalol and hydralazine ineffective, notify anesthesiologist. for use Sameday and, PACU only HYDROmorphone (DILAUDID) injection 0.25 mg 0.25 mg, Intravenous, EVERY 5 MIN PRN, Pain Moderate (4-6), Starting on Thu11/19/20 at 1251, For 4 doses, Phase I - Secondary therapy to be used after initial therapy medication doses are ineffective (pain score does not decrease by more than 1 point). If secondary medications are utilized, do not return to initial therapy medications., PACU only HYDROmorphone (DILAUDID) injection 0.5 mg 0.5 mg, Intravenous, EVERY 5 MIN PRN, Pain Severe (7-10), Starting on Thu11/19/20 at 1251, For 4 doses, Phase I - Secondary therapy to be used after initial therapy medication doses are ineffective (pain score does not decrease by more than 1 point). If secondary medications are utilized, do not return to initial therapy medications., PACU only 1424 (Given - Provid er: Laura Waite RN) labetalol (NORMODYNE;TRANDATE) injection 5 mg 5 mg, Intravenous, EVERY 10 MIN PRN, High Blood Pressure, Starting on Thu11/19/20 at 1251, PRN for SBP >160 for 2 consecutive measurements, if HR is 60 or greater. If beta camelia is contraindicated (HR less than 60, heart block, COPD or asthma) use hydralazine IV order. for use Sameday and, PACU only lidocaine PF 1 % injection 1 mL 1 mL, Intradermal, ONCE PRN, IV start, Starting on Thu11/19/20 at 1123, For 1 dose, Pre-op (day of surgery) meperidine (DEMEROL) injection 12.5 mg 12.5 mg, Intravenous, EVERY 5 MIN PRN, Shivering, , Starting on Thu11/19/20 at 1251, May give every 5 minutes to max of 50mg. for use Sameday and, PACU only ondansetron (ZOFRAN) injection 4 mg 4 mg, Intravenous, ONCE PRN, Nausea, Starting on Thu11/19/20 at 1251, For 1 dose, Initial antiemetic therapy. For use sameday and, PACU only oxyCODONE (ROXICODONE) immediate release tablet 10 mg (COMPLETED) 10 mg, Oral, PRN, Pain Severe (7-10), Starting on Thu11/19/20 at 1251, For 1 dose, PHASE II, PACU only 1532 (Given - Provid er: Laura Waite RN) promethazine (PHENERGAN) injection 6.25 mg 6.25 mg, Intravenous, ONCE PRN, Nausea, Starting on Thu11/19/20 at 1251, For 1 dose, Caution if used IV:Check IV site for infiltrate prior to and during administration. Secondary antiemetic therapy. For use sameday and For IV administration, dilute to 10ml with normal saline. Must be administered over at least 10 minutes., PACU only sodium chloride flush 0.9 % injection 5-40 mL 5-40 mL, Intravenous, PRN, Line Care, Starting on Thu11/19/20 at 1123, For Line Patency: Peripheral IV = 5 mL; Midline or Central Line = 10 mL/lumen. If following IV push medication, administer flush at same rate as the IV push. Flush volume is determined by type of infusion therapy being given. For non-viscous solutions use: Peripheral IV = 5 mL Midline or Central Line = 10 mL/lumen For viscous solutions (i.e. blood components, parenteral nutrition, contrast media, or after obtaining blood sample) use: Peripheral IV = 10 mL Midline or Central Line = 20 mL/lumen, Pre-op (day of surgery) Scheduled Medication Order 01/05/2021 01/06/2021 01/07/2021 acetaminophen (TYLENOL) tablet 1,000 mg (COMPLETED) 1,000 mg, Oral, ONCE, On Thu01/07/21 at 0047, For 1 dose, Maximum dose of acetaminophen is 4000 mg from all sources in 24 hours. 0357 (Given - Provid er: Milagro Chávez RN - Comment: this RN just assumed care of psatient) furosemide (LASIX) injection 80 mg (COMPLETED) 80 mg, IntraVENous, ONCE, On Thu01/07/21 at 0657, For 1 dose 0755 (Given - Provid er: Irene Gr RN) HYDROcodone-acetaminophen (NORCO) 5-325 MG per tablet 1 tablet (COMPLETED) 1 tablet, Oral, ONCE, On Thu01/07/21 at 0359, For 1 dose, Maximum dose of acetaminophen is 4000 mg from all sources in 24 hours. 0603 (Given - Provid er: Milagro Chávez RN) Scheduled Medication Order 02/07/2021 02/08/2021 02/09/2021 cyclobenzaprine (FLEXERIL) tablet 10 mg (COMPLETED) 10 mg, Oral, ONCE, On 02/09/21 at 0455, For 1 dose 0458 (Given - Provid er: Bakari Dasilva RN) HYDROcodone-acetaminophen (NORCO) 5-325 MG per tablet 1 tablet (COMPLETED) 1 tablet, Oral, ONCE, On 02/09/21 at 0455, For 1 dose, Maximum dose of acetaminophen is 4000 mg from all sources in 24 hours. 0458 (Given - Provid er: Bakari Dasilva RN) insulin regular (HUMULIN R;NOVOLIN R) injection 5 Units (COMPLETED) 5 Units, SubCUTAneous, ONCE, On 02/09/21 at 0308, For 1 dose 0453 (Given - Provid er: Bakari Dasilva RN) PRN Medication Order 02/07/2021 02/08/2021 02/09/2021 ondansetron (ZOFRAN) injection 4 mg 4 mg, IntraVENous, EVERY 30 MIN PRN, Nausea, Starting on 02/09/21 at 0124, For 2 doses 0156 (Given - Provid er: Bakari Dasilva RN) Scheduled Medication Order 02/09/2021 02/10/2021 02/11/2021 0.9 % sodium chloride bolus (COMPLETED) 1,000 mL (5.94 mL/kg), IntraVENous, at 1,000 mL/hr, Administer over 1 Hours, ONCE, On Thu02/11/21 at 1001, For 1 dose 1001 (New Bag - Prov ider: Antony Dejesus RN)1101 (Stopped - Provider: Antony Dejesus RN) HYDROcodone-acetaminophen (NORCO) 5-325 MG per tablet 1 tablet (COMPLETED) 1 tablet, Oral, ONCE, On Thu02/11/21 at 1253, For 1 dose, Maximum dose of acetaminophen is 4000 mg from all sources in 24 hours. 1316 (Given - Provid er: Antony Dejesus RN) sodium chloride flush 0.9 % injection 3 mL(Linked Group 1) 3 mL, IntraVENous, EVERY 8 HOURS, First dose on Thu02/11/21 at 1001, Flush line with 3-5 mL 1037 (Given - Provid er: Antony Dejesus RN)180 (Due) Linked Groups Order Group 1: Saline lock IV (COMPLETED) Routine, CONTINUOUS, Starting on Thu02/11/21 at 1000, Until Specified And sodium chloride flush 0.9 % injection 3 mLJump to med 3 mL, IntraVENous, EVERY 8 HOURS, First dose on Thu02/11/21 at 1001
Flush line with 3-5 mL
Scheduled Medication Order 06/13/2021 06/14/2021 06/15/2021 0.9 % sodium chloride bolus (COMPLETED) 1,000 mL, IntraVENous, at 500 mL/hr, Administer over 2 Hours, ONCE, On 06/15/21 at 1752, For 1 dose 1830 (New Bag - Prov ider: Bety Dsouza RN)2053 (Stopped - Provider: Rika Marley RN) morphine sulfate (PF) injection 4 mg (COMPLETED) 4 mg, IntraVENous, ONCE, On 06/15/21 at 1752, For 1 dose, If oral and IV narcotics ordered, use oral first and only use IV if oral is ineffective or cannot take oral. Do Not give oral and IV within 1 hour of each other unless specifically ordered. 1830 (Given - Provid er: Bety Dsouza RN) morphine sulfate (PF) injection 4 mg (COMPLETED) 4 mg, IntraVENous, ONCE, On 06/15/21 at 1942, For 1 dose, If oral and IV narcotics ordered, use oral first and only use IV if oral is ineffective or cannot take oral. Do Not give oral and IV within 1 hour of each other unless specifically ordered. 2025 (Given - Provid er: Cheyenne Proctor RN) ondansetron (ZOFRAN) injection 4 mg (COMPLETED) 4 mg, IntraVENous, ONCE, On 06/15/21 at 1752, For 1 dose 1830 (Given - Provid er: Bety Dsouza RN) Scheduled Medication Order 10/01/2021 10/02/2021 10/03/2021 oxyCODONE-acetaminophen (PERCOCET) 5-325 MG per tablet 1 tablet (COMPLETED) Mg/kg dosing is based on the oxycodone component., 1 tablet, Oral, ONCE, 1 dose, On Thu10/02/21 at 2337, Maximum dose of acetaminophen is 4000 mg from all sources in 24 hours. 0023 (Given - Provid er: Lucy Burton RN) Scheduled Medication Order 10/19/2021 10/20/2021 10/21/2021 clotrimazole (LOTRIMIN) 1 % cream (COMPLETED) Topical, ONCE, On Thu10/21/21 at 2138, For 1 dose, Apply to penis 2234 (Given - Provid er: Melina Plata LPN) HYDROcodone-acetaminophen (NORCO) 5-325 MG per tablet 1 tablet (COMPLETED) 1 tablet, Oral, ONCE, 1 dose, On Thu10/21/21 at 2119, Maximum dose of acetaminophen is 4000 mg from all sources in 24 hours. 2126 (Given - Provid er: Melina Plata LPN) morphine sulfate (PF) injection 4 mg (COMPLETED) 4 mg, IntraMUSCular, ONCE, 1 dose, On Thu10/21/21 at 1806, If oral and IV narcotics ordered, use oral first and only use IV if oral is ineffective or cannot take oral. Do Not give oral and IV within 1 hour of each other unless specifically ordered. 1817 (Given - Provid er: Christine Montana RN) mupirocin (BACTROBAN) 2 % cream (COMPLETED) Topical, ONCE, On Thu10/21/21 at 2138, For 1 dose, Apply to penis 2234 (Given - Provid er: Melina Plata LPN) Scheduled Medication Order 12/03/2021 12/04/2021 12/05/2021 acetaminophen (TYLENOL) tablet 1,000 mg (COMPLETED) 1,000 mg, Oral, ONCE, 1 dose, On Thu12/03/21 at 0645, Maximum dose of acetaminophen is 4000 mg from all sources in 24 hours. Do not administer if patient has taken tylenol <4 hours earlier. Do not give if contraindicated ie. patient has active liver disease or cirrhosis., Pre-op (day of surgery) 0653 (Given - Provider: Indira Eason RN) albuterol (PROVENTIL) nebulizer solution 2.5 mg (CANCELED) 2.5 mg, Nebulization, EVERY 4 HOURS WHILE AWAKE, First dose on Thu12/03/21 at 1600, Until Discontinued, Initiate RT Bronchodilator Protocol: Yes, Post-op 1542 (Given - Provider: Josr Kellogg RCP)2000 (Due) 0920 (Given - Provider: Lamont Fernandez RCP)1322 (Not Given - Provider: Lamont Fernandez RCP - Reason: Patient not available - Comment: Patient and family talking with nurses regarding post op nutrition.)1707 (Canceled Entry - Provider: Lisandro Borrero RCP - Comment: order discontinued) buPROPion (WELLBUTRIN SR) extended release tablet 150 mg 150 mg, Oral, 2 TIMES DAILY, First dose on Thu12/04/21 at 0915, Until Discontinued, Do not crush or break. 1300 (Given - Provider: Leida Zuñiga LPN)2013 (Given - Provider: Haylee Jarvis, CIRO) 08 (Given - Provider: Jennie Worley, CIRO)2100 (Due) ceFAZolin (ANCEF) 3,000 mg in dextrose 5 % 100 mL IVPB (COMPLETED) 3,000 mg, IntraVENous, [employer] P[employer] TO O.R., 1 dose, On Thu12/03/21 at 0645, Antimicrobial Indications: Surgical Prophylaxis, Administer within 1 hour prior to incision. Repeat in 3-4 hours after initial dose if still intra-op., Pre-op (day of surgery) 0745 (Given by Other Clinician - Provider: Gianna Simpson RN - Comment: given in OR by [employer] OPERATOR [employer] TENDER) enoxaparin (LOVENOX) injection 40 mg 40 mg, SubCUTAneous, EVERY 12 HOURS SCHEDULED (2 times per day), First dose on Thu12/03/21 at 2200, Until Discontinued, Indication of Use: Prophylaxis-DVT/PE, 40mg every 12 hours, subcutaneous, if 300 - 400 lbs., Post-op 2150 (Given - Provider: Candida Curiel RN) 08 (Given - Provider: Vanessa Albert, CIRO)2013 (Given - Provider: Haylee Jarvis, CIRO) 08 (Given - Provider: Jennie Worley, CIRO)2100 (Due) famotidine (PEPCID) 20 mg in sodium chloride (PF) 10 mL injection (CANCELED) 20 mg, IntraVENous, 2 TIMES DAILY, First dose on Thu12/03/21 at 1445, Until Discontinued, IV Push over minimum of 2 minutes - Dilute with 10 mL NS 1538 (Given - Provider: Latha Wray, CIRO)2150 (Given - Provider: Candida Curiel RN) 0806 (Given - Provider: Vanessa Albert, CIRO) famotidine (PEPCID) tablet 20 mg (COMPLETED) 20 mg, Oral, ONCE, 1 dose, On Thu12/03/21 at 0645, Pre-op (day of surgery) 0701 (Given - Provider: Indira Eason RN) famotidine (PEPCID) tablet 20 mg 20 mg, Oral, 2 TIMES DAILY, First dose on Thu12/04/21 at 0915, Until Discontinued 1021 (Not Given - Provider: Vanessa Albert RN - Reason: Other)2013 (Given - Provider: Haylee Jarvis RN) 08 (Given - Provider: Jennie Worley RN)2100 (Due) gabapentin (NEURONTIN) capsule 100 mg (COMPLETED) 100 mg, Oral, ONCE, 1 dose, On Thu12/03/21 at 0645, For Age >69, or Low GFR, Pre-op (day of surgery) 0654 (Given - Provider: Indira Eason RN) heparin (porcine) injection 5,000 Units (COMPLETED) 5,000 Units, SubCUTAneous, ONCE, 1 dose, On Thu12/03/21 at 0645, Pre-op (day of surgery) 0653 (Given - Provider: Indira Eason RN) HYDROmorphone (DILAUDID) injection 0.5 mg (COMPLETED) HYDROmorphone (DILAUDID) 1.5mg IV is equivalent to morphine 10mg IV, 0.5 mg, IntraVENous, ONCE, 1 dose, On Thu12/03/21 at 1600, If oral and IV narcotics ordered, use oral first and only use IV if oral is ineffective or cannot take oral. Do Not give oral and IV within 1 hour of each other unless specifically ordered. 1538 (Given - Provider: aLtha Wray RN) levothyroxine (SYNTHROID) tablet 50 mcg 50 mcg, Oral, DAILY, First dose on Thu12/04/21 at 0915, Until Discontinued, Tube feeding (TF) interaction, obtain physician order to manage, recommend holding TF for 30 minutes before and after dose. 1145 (Given - Provider: Vanessa Albert RN) 0823 (Given - Provider: Jennie Worley, CIRO) metOLazone (ZAROXOLYN) tablet 2.5 mg 2.5 mg, Oral, DAILY, First dose on Thu12/04/21 at 0915, Until Discontinued 1145 (Given - Provider: Vanessa Albert RN) 1056 (Given - Provider: Jennie Worley RN) mometasone-formoterol (DULERA) 100-5 MCG/ACT inhaler 2 puff 2 puff, Inhalation, 2 TIMES DAILY, First dose on Thu12/03/21 at 1315, Until Discontinued, Substituted for Fluticasone-Salmeterol (ADVAIR DPI) 1611 (Given - Provider: Vanessa Albert RN)2231 (Not Given - Provider: Candida Curiel RN - Reason: Patient/family refused) 1021 (Given - Provider: Vanessa Albert RN)2014 (Given - Provider: Haylee Jarvis, CIRO) 0821 (Not Given - Provider: Jennie Worley, CIRO - Reason: Medication not available)2000 (Due) pregabalin (LYRICA) capsule 150 mg 150 mg, Oral, 2 TIMES DAILY, First dose on Thu12/04/21 at 0915, Until Discontinued 1103 (Given - Provider: Vanessa Albert RN)2013 (Given - Provider: Haylee Jarvis, RN) 0822 (Given - Provider: Jennie Worley, CIRO)2100 (Due) sodium chloride flush 0.9 % injection 5-40 mL 5-40 mL, IntraVENous, EVERY 12 HOURS SCHEDULED (2 times per day), First dose on Thu12/03/21 at 2100, Until Discontinued, For Line Patency: Peripheral IV = 5 mL; Midline or Central Line = 10 mL/lumen. If following IV push medication, administer flush at same rate as the IV push. Flush volume is determined by type of infusion therapy being given. For non-viscous solutions use: Peripheral IV = 5 mL Midline or Central Line = 10 mL/lumen For viscous solutions (i.e. blood components, parenteral nutrition, contrast media, or after obtaining blood sample) use: Peripheral IV = 10 mL Midline or Central Line = 20 mL/lumen, Post-op 215 (Given - Provider: Candida Curiel, CIRO) 102 (Not Given - Provider: Vanessa Albert RN - Reason: IV Fluid Infusing)2020 (Not Given - Provider: Haylee Jarvis RN - Reason: IV Fluid Infusing) 08 (Not Given - Provider: Jennie Worley, CIRO - Reason: IV Fluid Infusing)2100 (Due) tamsulosin (FLOMAX) capsule 0.4 mg 0.4 mg, Oral, DAILY, First dose on Thu12/04/21 at 0915, Until Discontinued, Do not crush or break. 102 (Not Given - Provider: Vanessa Albert RN - Reason: Patient/family refused) 08 (Given - Provider: Jennie Worley RN) Continuous Medication Order 12/03/2021 12/04/2021 12/05/2021 dextrose 5 % and 0.45 % NaCl with KCl 20 mEq infusion IntraVENous, at 75 mL/hr, CONTINUOUS, Starting on Thu12/03/21 at 1315, Post-op 1258 (New Bag - Provider: Vanessa Albert RN)2340 (New Bag - Provider: Candida Curiel, CIRO) 1016 (Rate/Dose Change - Provider: Vanessa Albert RN)1017 (New Bag - Provider: Vanessa Albert RN) lactated ringers infusion (CANCELED) IntraVENous, at 50 mL/hr, CONTINUOUS, Starting on Thu12/03/21 at 0645, Upon admission to sameday - please start iv if patient does not have iv access. Use 500ml NS for patients on dialysis., Pre-op (day of surgery) 0653 (New Bag - Provider: Indira Eason, RN) PRN Medication Order 12/03/2021 12/04/2021 12/05/2021 0.9 % sodium chloride infusion IntraVENous, at 5-250 mL/hr, PRN, if patient receiving piggyback infusions and maintenance fluids are not ordered OR KVO fluids to protect IV site / prevent frequent line interruptions/ long duration, Starting on Thu12/03/21 at 1245, For piggyback infusion, administer at same rate as piggyback for a total of 25 mL. Enter 25 mL into dose field and piggyback rate into rate field of order. If piggyback is infusing at a rate less than 100 mL/hr, enter 25 mL into dose field and 100 mL/hr into rate field of order. For KVO fluids, enter rate of 20 mL/hr or less into rate field of order., Post-op albuterol (PROVENTIL) nebulizer solution 2.5 mg 2.5 mg, Nebulization, EVERY 4 HOURS PRN, Starting on Thu12/04/21 at 1715, Until Discontinued, Wheezing, Initiate RT Bronchodilator Protocol: Yes, Post-op ALPRAZolam (NIRAVAM) dissolvable tablet 0.25 mg (CANCELED) 0.25 mg, Oral, PRN, Starting on Thu12/03/21 at 0620, Until Thu12/03/21 at 1235, Anxiety, Pre-op (day of surgery) 0654 (Given - Provider: Indira Eason RN) HYDROmorphone (DILAUDID) injection 0.25 mg(Linked Group 1) HYDROmorphone (DILAUDID) 1.5mg IV is equivalent to morphine 10mg IV, 0.25 mg, IntraVENous, EVERY 3 HOURS PRN, Starting on Thu12/03/21 at 1245, Until Discontinued, Pain Moderate (4-6), If oral and IV narcotics ordered, use oral first and only use IV if oral is ineffective or cannot take oral. Do Not give oral and IV within 1 hour of each other unless specifically ordered., Post-op 1258 (See Alternative - Provider: Vanessa Albert RN)1847 (See Alternative - Provider: Vanessa Albert RN)2150 (See Alternative - Provider: Candida Curiel RN) 0100 (See Alternative - Provider: Canddia Curiel RN)0417 (See Alternative - Provider: Candida Curiel RN)0807 (See Alternative - Provider: Vanessa Albert RN)2145 (See Alternative - Provider: Haylee Jarvis RN) 1053 (See Alternative - Provider: Jennie Worley RN) HYDROmorphone (DILAUDID) injection 0.5 mg (CANCELED) HYDROmorphone (DILAUDID) 1.5mg IV is equivalent to morphine 10mg IV, 0.5 mg, IntraVENous, EVERY 5 MIN PRN, 4 doses, Starting on Thu12/03/21 at 0924, Until Thu12/03/21 at 1235, Pain Severe (7-10), Phase I - Initial therapy for severe pain. Restricted to a 90 minute time frame starting when the patient can verbally state their pain score., PACU only 0940 (Given - Provider: Gianna Simpson RN)0951 (Given - Provider: Gianna Simpson, CIRO)1023 (Given - Provider: Gianna Simpson RN) HYDROmorphone (DILAUDID) injection 0.5 mg(Linked Group 1) HYDROmorphone (DILAUDID) 1.5mg IV is equivalent to morphine 10mg IV, 0.5 mg, IntraVENous, EVERY 3 HOURS PRN, Starting on Thu12/03/21 at 1245, Until Discontinued, Pain Severe (7-10), If oral and IV narcotics ordered, use oral first and only use IV if oral is ineffective or cannot take oral. Do Not give oral and IV within 1 hour of each other unless specifically ordered., Post-op 1258 (Given - Provider: Vanessa Albert RN)1847 (Given - Provider: Vanessa Albert RN)2150 (Given - Provider: Candida Curiel RN) 0100 (Given - Provider: Candida Curiel RN)0417 (Given - Provider: Candida Curiel RN)0807 (Given - Provider: Vanessa Albert RN)2145 (Given - Provider: Haylee Jarvis RN) 1053 (Given - Provider: Jennie Worley RN) LORazepam (ATIVAN) injection 0.5 mg (COMPLETED) 0.5 mg, IntraVENous, EVERY 10 MIN PRN, 2 doses, Starting on Thu12/03/21 at 0620, Until Discontinued, Anxiety, Other, Discomfort, On arrival to PACU Post-Op, PACU only 0937 (Given - Provider: Gianna Simpson RN)0958 (Given - Provider: Gianna Simpson RN) LORazepam (ATIVAN) injection 1 mg 1 mg, IntraVENous, NIGHTLY PRN, Starting on Thu12/03/21 at 2100, Until Discontinued, Sleep ondansetron (ZOFRAN) injection 4 mg (COMPLETED) 4 mg, IntraVENous, ONCE PRN, 1 dose, Starting on Thu12/03/21 at 0924, Until Thu12/03/21 at 1023, Nausea, Initial antiemetic therapy., PACU only 1023 (Given - Provider: Gianna Simpson RN) ondansetron (ZOFRAN) injection 4 mg 4 mg, IntraVENous, EVERY 6 HOURS PRN, Starting on Thu12/03/21 at 1245, Until Discontinued, Nausea, Post-op 0100 (Given - Provider: Candida Curiel RN)0811 (Given - Provider: Vanessa Albert RN)2150 (Given - Provider: Haylee Jarvis RN) 1056 (Given - Provider: Jennie Worley RN) oxyCODONE-acetaminophen (PERCOCET) 5-325 MG per tablet 1 tablet(Linked Group 2) Mg/kg dosing is based on the oxycodone component., 1 tablet, Oral, EVERY 4 HOURS PRN, Starting on Thu12/04/21 at 0848, Until Discontinued, Pain Moderate (4-6), Maximum dose of acetaminophen is 4000 mg from all sources in 24 hours. 1019 (See Alternative - Provider: Vanessa Albert RN)1400 (See Alternative - Provider: Vanessa Albert RN)2020 (See Alternative - Provider: Haylee Jarvis RN) 0820 (See Alternative - Provider: Jennie Worley RN)1219 (See Alternative - Provider: Jennie Worley RN) oxyCODONE-acetaminophen (PERCOCET) 5-325 MG per tablet 2 tablet(Linked Group 2) Mg/kg dosing is based on the oxycodone component., 2 tablet, Oral, EVERY 4 HOURS PRN, Starting on Thu12/04/21 at 0848, Until Discontinued, Pain Severe (7-10), Maximum dose of acetaminophen is 4000 mg from all sources in 24 hours. 1019 (Given - Provider: Vanessa Albert RN)1400 (Given - Provider: Vanessa Albert RN)2020 (Given - Provider: Haylee Jarvis RN) 3681 (Given - Provider: Jennie Worley, RN)121 (Given - Provider: Jennie Worley, RN) sodium chloride flush 0.9 % injection 5-40 mL 5-40 mL, IntraVENous, PRN, Starting on Thu12/03/21 at 1245, Until Discontinued, Line Care, After every IV line use, For Line Patency: Peripheral IV = 5 mL; Midline or Central Line = 10 mL/lumen. If following IV push medication, administer flush at same rate as the IV push. Flush volume is determined by type of infusion therapy being given. For non-viscous solutions use: Peripheral IV = 5 mL Midline or Central Line = 10 mL/lumen For viscous solutions (i.e. blood components, parenteral nutrition, contrast media, or after obtaining blood sample) use: Peripheral IV = 10 mL Midline or Central Line = 20 mL/lumen, Post-op Linked Groups Order Group 1: HYDROmorphone (DILAUDID) injection 0.25 mgJump to med HYDROmorphone (DILAUDID) 1.5mg IV is equivalent to morphine 10mg IV
0.25 mg, IntraVENous, EVERY 3 HOURS PRN, Starting on Thu12/03/21 at 1245, Until Discontinued, Pain Moderate (4-6)
If oral and IV narcotics ordered, use oral first and only use IV if oral is ineffective or cannot take oral. Do Not give oral and IV within 1 hour of each other unless specifically ordered.
Post-op Or HYDROmorphone (DILAUDID) injection 0.5 mgJump to med HYDROmorphone (DILAUDID) 1.5mg IV is equivalent to morphine 10mg IV
0.5 mg, IntraVENous, EVERY 3 HOURS PRN, Starting on Thu12/03/21 at 1245, Until Discontinued, Pain Severe (7-10)
If oral and IV narcotics ordered, use oral first and only use IV if oral is ineffective or cannot take oral. Do Not give oral and IV within 1 hour of each other unless specifically ordered.
Post-op Group 2: oxyCODONE-acetaminophen (PERCOCET) 5-325 MG per tablet 1 tabletJump to med Mg/kg dosing is based on the oxycodone component.
1 tablet, Oral, EVERY 4 HOURS PRN, Starting on Thu12/04/21 at 0848, Until Discontinued, Pain Moderate (4-6)
Maximum dose of acetaminophen is 4000 mg from all sources in 24 hours.
Or oxyCODONE-acetaminophen (PERCOCET) 5-325 MG per tablet 2 tabletJump to med Mg/kg dosing is based on the oxycodone component.
2 tablet, Oral, EVERY 4 HOURS PRN, Starting on Thu12/04/21 at 0848, Until Discontinued, Pain Severe (7-10)
Maximum dose of acetaminophen is 4000 mg from all sources in 24 hours.
Scheduled Medication Order 12/17/2021 12/18/2021 12/19/2021 acetaminophen (TYLENOL) tablet 1,000 mg 1,000 mg, Oral, EVERY 8 HOURS SCHEDULED (3 times per day), First dose on Thu12/18/21 at 0600, Until Discontinued, Maximum dose of acetaminophen is 4000 mg from all sources in 24 hours. 0502 (Given - Provider: Kathy Lorenzo RN)1508 (Given - Provider: Hannah Toribio RN) 0034 (Given - Provider: Timothy Niño RN)0924 (Given - Provider: Shyanne Knox RN)1630 (Due - Provider: Sergio David [facility]) atorvastatin (LIPITOR) tablet 80 mg 80 mg, Oral, NIGHTLY, First dose on Thu12/18/21 at 2100, Until Discontinued 2038 (Given - Provider: Timothy Niño RN) 2100 (Due) baclofen (LIORESAL) tablet 10 mg 10 mg, Oral, 3 TIMES DAILY, First dose on Thu12/18/21 at 0900, Until Discontinued 1000 (Given - Provider: Hannah Toribio RN)1640 (Given - Provider: Hannah Toribio RN)203 (Given - Provider: Timothy Niño RN) 0934 (Given - Provider: Shyanne Knox RN)1507 (Given - Provider: Shyanne Knox RN)2100 (Due) buPROPion (WELLBUTRIN SR) extended release tablet 150 mg 150 mg, Oral, 2 TIMES DAILY, First dose on Thu12/18/21 at 0200, Until Discontinued, Do not crush or break., STAT 0205 (Given - Provider: Kathy Lorenzo RN)1000 (Given - Provider: Hannah Toribio RN)2039 (Given - Provider: Timothy Niño RN) 0934 (Given - Provider: Shyanne Knox RN)2100 (Due) dicyclomine (BENTYL) capsule 10 mg 10 mg, Oral, 3 TIMES DAILY BEFORE MEALS, First dose on Thu12/18/21 at 0700, Until Discontinued 0502 (Given - Provider: Kathy Lorenzo RN)1257 (Given - Provider: Hannah Toribio RN)1639 (Given - Provider: Hannah Toribio RN) 0548 (Given - Provider: Timothy Niño RN)1231 (Given - Provider: Shyanne Knox RN)1600 (Due) enoxaparin (LOVENOX) injection 40 mg 40 mg, SubCUTAneous, 2 TIMES DAILY, First dose on Thu12/18/21 at 0200, Until Discontinued, Indication of Use: Prophylaxis-DVT/PE, Pharmacy to dose if renal insufficiency present. 0202 (Given - Provider: Kathy Lorenzo RN)1840 (Given - Provider: Hannah Toribio RN) 0548 (Given - Provider: Timothy Niño RN)1800 (Due - Provider: Naima Lopez [facility]) furosemide (LASIX) tablet 40 mg 40 mg, Oral, 2 TIMES DAILY, First dose (after last modification) on Thu12/19/21 at 0800, Until Discontinued 0924 (Given - Provider: Shyanne Knox RN)1730 (Due) furosemide (LASIX) tablet 80 mg (CANCELED) 80 mg, Oral, 2 TIMES DAILY, First dose on Thu12/18/21 at 0800, Until Discontinued 1000 (Given - Provider: Hannah Toribio RN)1639 (Given - Provider: Hannah Toribio RN) gabapentin (NEURONTIN) capsule 300 mg 300 mg, Oral, 3 TIMES DAILY, First dose on Thu12/18/21 at 0900, Until Discontinued 1001 (Given - Provider: Hannah Toribio RN)1508 (Given - Provider: Hannah Toribio RN)2038 (Given - Provider: Timothy Niño, CIRO) 0924 (Given - Provider: Shyanne Knox, RN)1506 (Given - Provider: Shyanne Knox, RN)2100 (Due) HYDROmorphone (DILAUDID) injection 0.5 mg (COMPLETED) HYDROmorphone (DILAUDID) 1.5mg IV is equivalent to morphine 10mg IV, 0.5 mg, IntraVENous, ONCE, 1 dose, On Thu12/17/21 at 2330, If oral and IV narcotics ordered, use oral first and only use IV if oral is ineffective or cannot take oral. Do Not give oral and IV within 1 hour of each other unless specifically ordered. 0013 (Given - Provider: Duyen Siegel RN) lactated ringers bolus (COMPLETED) 1,000 mL, IntraVENous, at 983.6 mL/hr, Administer over 61 Minutes, ONCE, On Thu12/17/21 at 2330, For 1 dose 0013 (New Bag - Provider: Duyen Siegel RN)0124 (Stopped - Provider: Izabela Rebolledo RN) levothyroxine (SYNTHROID) tablet 50 mcg 50 mcg, Oral, DAILY, First dose on Thu12/18/21 at 0700, Until Discontinued, Tube feeding (TF) interaction, obtain physician order to manage, recommend holding TF for 30 minutes before and after dose. 0502 (Given - Provider: Kathy Lorenzo RN) 0548 (Given - Provider: Timothy iNño RN) methocarbamol (ROBAXIN) tablet 750 mg 750 mg, Oral, 2 times daily, First dose on Thu12/18/21 at 0200, Until Discontinued, STAT 0205 (Given - Provider: Kathy Lorenzo RN)1000 (Given - Provider: Hnanah Toribio RN)203 (Given - Provider: Timothy Niño, CIRO) 0934 (Given - Provider: Shyanne Knox, RN)2100 (Due) mometasone-formoterol (DULERA) 100-5 MCG/ACT inhaler 2 puff 2 puff, Inhalation, 2 TIMES DAILY, First dose on Thu12/18/21 at 0800, Until Discontinued, Rinse mouth after each use. Substituted for Fluticasone-Salmeterol (ADVAIR DPI) 1017 (Given - Provider: Hannah Toribio RN)2038 (Given - Provider: Timothy Niño, CIRO) 09 (Given - Provider: Shyanne Knox, CIRO)1999 (Due) morphine sulfate (PF) injection 4 mg (COMPLETED) 4 mg, IntraVENous, ONCE, 1 dose, On Thu12/17/21 at 2130, If oral and IV narcotics ordered, use oral first and only use IV if oral is ineffective or cannot take oral. Do Not give oral and IV within 1 hour of each other unless specifically ordered. 2142 (Given - Provider: Keena Salguero RN) morphine sulfate (PF) injection 4 mg (COMPLETED) 4 mg, IntraVENous, ONCE, 1 dose, On Thu12/17/21 at 2300, If oral and IV narcotics ordered, use oral first and only use IV if oral is ineffective or cannot take oral. Do Not give oral and IV within 1 hour of each other unless specifically ordered. 2308 (Given - Provider: Keena Salguero RN) ondansetron (ZOFRAN) injection 4 mg (COMPLETED) 4 mg, IntraVENous, ONCE, 1 dose, On Thu12/17/21 at 2200 215 (Given - Provider: Keena Salguero RN) pantoprazole (PROTONIX) tablet 40 mg 40 mg, Oral, 2 TIMES DAILY WITH MEALS, First dose on Thu12/18/21 at 0800, Until Discontinued, Do not crush or break. 1000 (Given - Provider: Hannah Toribio RN)1639 (Given - Provider: Hannah Toribio RN) 0924 (Given - Provider: Shyanne Knox RN)1700 (Due) PARoxetine (PAXIL) tablet 20 mg 20 mg, Oral, DAILY, First dose on Thu12/18/21 at 0200, Until Discontinued, STAT 0205 (Given - Provider: Kathy Lorenzo RN)2038 (Given - Provider: Timothy Niño RN) 2199 (Due) sodium chloride flush 0.9 % injection 10 mL 10 mL, IntraVENous, EVERY 12 HOURS SCHEDULED (2 times per day), First dose on Thu12/18/21 at 0900, Until Discontinued 1001 (Given - Provider: Hannah Toribio RN)2039 (Not Given - Provider: Timothy Niño RN - Reason: IV Fluid Infusing) 0926 (Given - Provider: Shyanne Knox, CIRO)2100 (Due) tamsulosin (FLOMAX) capsule 0.4 mg 0.4 mg, Oral, DAILY, First dose on Thu12/18/21 at 0900, Until Discontinued, Do not crush or break. 1001 (Given - Provider: Hannah Toribio RN) 0924 (Given - Provider: Shyanne Knox RN) therapeutic multivitamin-minerals 1 tablet 1 tablet, Oral, DAILY, First dose on Thu12/18/21 at 0900, Until Discontinued 1000 (Given - Provider: Hannah Toribio RN) 0934 (Given - Provider: Shyanne Knox RN) trospium (SANCTURA) tablet 20 mg 20 mg, Oral, 2 TIMES DAILY BEFORE MEALS, First dose on Thu12/18/21 at 0700, Until Discontinued, Administer with water on an empty stomach at least 1 hour prior to meals. Therapeutic substitution for Oxybutynin (Ditropan). 0502 (Given - Provider: Kathy Lorenzo RN)1639 (Given - Provider: Hannah Toribio RN) 0548 (Given - Provider: Timothy Niño, CIRO)1600 (Due) Continuous Medication Order 12/17/2021 12/18/2021 12/19/2021 lactated ringers infusion (CANCELED) IntraVENous, at 100 mL/hr, CONTINUOUS, Starting on Thu12/18/21 at 0200 0202 (New Bag - Provider: Kathy Lorenzo RN)1259 (New Bag - Provider: Hannah Toribio RN) 0331 (Stopped - Provider: Timothy Niño RN) PRN Medication Order 12/17/2021 12/18/2021 12/19/2021 0.9 % sodium chloride infusion IntraVENous, at 5-250 mL/hr, PRN, if patient receiving piggyback infusions and maintenance fluids are not ordered OR KVO fluids to protect IV site / prevent frequent line interruptions/ long duration, Starting on Thu12/18/21 at 0139, For piggyback infusion, administer at same rate as piggyback for a total of 25 mL. Enter 25 mL into dose field and piggyback rate into rate field of order. If piggyback is infusing at a rate less than 100 mL/hr, enter 25 mL into dose field and 100 mL/hr into rate field of order. For KVO fluids, enter rate of 20 mL/hr or less into rate field of order. HYDROmorphone (DILAUDID) injection 0.25 mg(Linked Group 1) HYDROmorphone (DILAUDID) 1.5mg IV is equivalent to morphine 10mg IV, 0.25 mg, IntraVENous, EVERY 3 HOURS PRN, Starting on Thu12/18/21 at 013, Until Discontinued, Pain Moderate (4-6), If oral and IV narcotics ordered, use oral first and only use IV if oral is ineffective or cannot take oral. Do Not give oral and IV within 1 hour of each other unless specifically ordered. 0311 (See Alternative - Provider: Kathy Lorenzo RN)0936 (See Alternative - Provider: Hannah Toribio RN)1257 (See Alternative - Provider: Hannah Toribio RN)1639 (See Alternative - Provider: Hannah Toribio RN)2038 (See Alternative - Provider: Timothy Niño, CIRO) 0034 (See Alternative - Provider: Timothy Niño RN)0401 (See Alternative - Provider: Timothy Niño RN)0925 (See Alternative - Provider: Shyanne Knox, CIRO)1231 (See Alternative - Provider: Shyanne Knox, RN) HYDROmorphone (DILAUDID) injection 0.5 mg(Linked Group 1) HYDROmorphone (DILAUDID) 1.5mg IV is equivalent to morphine 10mg IV, 0.5 mg, IntraVENous, EVERY 3 HOURS PRN, Starting on Thu12/18/21 at 0139, Until Discontinued, Pain Severe (7-10), If oral and IV narcotics ordered, use oral first and only use IV if oral is ineffective or cannot take oral. Do Not give oral and IV within 1 hour of each other unless specifically ordered. 0311 (Given - Provider: Kathy Lorenzo RN)0936 (Given - Provider: Hannah Toribio RN)1257 (Given - Provider: Hannah Toribio RN)1639 (Given - Provider: Hannah Toribio, RN)2038 (Given - Provider: Timothy Niño, CIRO) 0034 (Given - Provider: Timothy Niño RN)0401 (Given - Provider: Timothy Niño RN)0925 (Given - Provider: Shyanne Knox RN)1231 (Given - Provider: Shyanne Knox RN) ondansetron (ZOFRAN) injection 4 mg 4 mg, IntraVENous, EVERY 6 HOURS PRN, Starting on Thu12/18/21 at 0139, Until Discontinued, Nausea, Vomiting oxyCODONE (ROXICODONE) immediate release tablet 10 mg(Linked Group 2) 10 mg, Oral, EVERY 4 HOURS PRN, Starting on Thu12/18/21 at 0139, Until Discontinued, Pain Severe (7-10) 0202 (Given - Provider: Kathy Lorenzo RN)0702 (Given - Provider: Kathy Lorenzo RN) oxyCODONE (ROXICODONE) immediate release tablet 5 mg(Linked Group 2) 5 mg, Oral, EVERY 4 HOURS PRN, Starting on Thu12/18/21 at 0139, Until Discontinued, Pain Moderate (4-6) 0202 (See Alternative - Provider: Kathy Lorenzo RN)0702 (See Alternative - Provider: Kathy Lorenzo RN) polyethylene glycol (GLYCOLAX) packet 17 g 17 g, Oral, DAILY PRN, Starting on Thu12/18/21 at 0139, Until Discontinued, Take once daily as needed for constipation 0957 (Given - Provid er: Shyanne Knox RN) sennosides-docusate sodium (SENOKOT-S) 8.6-50 MG tablet 1 tablet 1 tablet, Oral, DAILY PRN, Starting on Thu12/18/21 at 0139, Until Discontinued, Constipation 0957 (Given - Provid er: Shyanne Knox RN) sodium chloride flush 0.9 % injection 10 mL 10 mL, IntraVENous, PRN, Starting on Thu12/18/21 at 013, Until Discontinued, Line Care, After every IV line use Linked Groups Order Group 1: HYDROmorphone (DILAUDID) injection 0.25 mgJump to med HYDROmorphone (DILAUDID) 1.5mg IV is equivalent to morphine 10mg IV
0.25 mg, IntraVENous, EVERY 3 HOURS PRN, Starting on Thu12/18/21 at 0139, Until Discontinued, Pain Moderate (4-6)
If oral and IV narcotics ordered, use oral first and only use IV if oral is ineffective or cannot take oral. Do Not give oral and IV within 1 hour of each other unless specifically ordered.
Or HYDROmorphone (DILAUDID) injection 0.5 mgJump to med HYDROmorphone (DILAUDID) 1.5mg IV is equivalent to morphine 10mg IV
0.5 mg, IntraVENous, EVERY 3 HOURS PRN, Starting on Thu12/18/21 at 013, Until Discontinued, Pain Severe (7-10)
If oral and IV narcotics ordered, use oral first and only use IV if oral is ineffective or cannot take oral. Do Not give oral and IV within 1 hour of each other unless specifically ordered.
Group 2: oxyCODONE (ROXICODONE) immediate release tablet 5 mgJump to med 5 mg, Oral, EVERY 4 HOURS PRN, Starting on Thu12/18/21 at 013, Until Discontinued, Pain Moderate (4-6) Or oxyCODONE (ROXICODONE) immediate release tablet 10 mgJump to med 10 mg, Oral, EVERY 4 HOURS PRN, Starting on Thu12/18/21 at 013, Until Discontinued, Pain Severe (7-10) Scheduled Medication Order 02/13/2023 02/14/2023 02/15/2023 diatrizoate meglumine-sodium (Gastrografin) 66-10 % solution 15 mL (COMPLETED) 15 mL, Oral, Once, On 02/15/23 at 1150, For 1 dose, 15mL mixed in 16oz of water. Half 2 hours before and the other half on the table before scan. 1150 (Given - Provid er: Shad Pineda RN - Comment: Given by oxygen equipment technician) HYDROmorphone (Dilaudid) injection 1 mg (COMPLETED) 1 mg, IntraVENous, Once, On 02/15/23 at 1320, For 1 dose, If oral and IV narcotics ordered, use oral first and only use IV if oral is ineffective or cannot take oral. Do Not give oral and IV within 1 hour of each other unless specifically ordered. 1320 (Given - Provid er: Shad Pineda RN) morphine injection 4 mg (COMPLETED) 4 mg, IntraVENous, Once, On 02/15/23 at 1135, For 1 dose, If oral and IV narcotics ordered, use oral first and only use IV if oral is ineffective or cannot take oral. Do Not give oral and IV within 1 hour of each other unless specifically ordered. 1137 (Given - Provid er: Shad Pineda RN) ondansetron (Zofran) injection 4 mg (COMPLETED) 4 mg, IntraVENous, Once, On 02/15/23 at 1135, For 1 dose 1137 (Given - Provid er: Shad Pineda RN) Continuous Medication Order 02/13/2023 02/14/2023 02/15/2023 sodium chloride 0.9 % infusion 125 mL/hr, IntraVENous, Continuous, Starting on 02/15/23 at 1135 1137 (New Bag - Prov ider: Shad Pineda RN)1544 (Stopped - Provider: Shad Pineda RN) Scheduled Medication Order 02/19/2023 02/20/2023 02/21/2023 diatrizoate meglumine-sodium (Gastrografin) 66-10 % solution 30 mL (COMPLETED) 30 mL, Oral, Once, On 02/21/23 at 1455, For 1 dose, 1. INPATIENTS 30ML GASTROGRAFIN MIXED IN 32OZ OF WATER-DRINK HALF 2 HRS BEFORE AND THE HALF 1HR BEFORE EXAM. 2. EMERGENCY PATIENTS 30ML GASTROGRAFIN MIXED IN 32OZ OF WATER AND WAIT 1 HOUR THEN SCAN. 1520 (Given - Provid er: Lilian Ramirez RN) diphenhydrAMINE (BENADryl) injection 50 mg 50 mg, IntraVENous, Once, On 02/21/23 at 1800, For 1 dose 1800 (Not Given - Pr ovider: Lilian Ramirez RN - Reason: Other - Comment: ct discontinued) HYDROmorphone (Dilaudid) injection 1 mg (COMPLETED) 1 mg, IntraVENous, Once, On 02/21/23 at 1245, For 1 dose, If oral and IV narcotics ordered, use oral first and only use IV if oral is ineffective or cannot take oral. Do Not give oral and IV within 1 hour of each other unless specifically ordered. 1249 (Given - Provid er: Lilian Ramirez RN) lactated ringers bolus 1,000 mL (COMPLETED) 1,000 mL, IntraVENous, at 500 mL/hr, Administer over 2 Hours, Once, On 02/21/23 at 1510, For 1 dose 1519 (New Bag - Prov ider: Lilian Ramirez RN)1719 (Stopped - Provider: Lilian Ramirez RN) methylPREDNISolone sod suc (PF) (SOLU-Medrol) 40 MG injection 40 mg (COMPLETED) 40 mg, IntraVENous, Once, On 02/21/23 at 1500, For 1 dose 1520 (Given - Provid er: Lilian Ramirez RN) pantoprazole (ProtoNix) 40 mg in sodium chloride (PF) 0.9 % 10 mL injection (COMPLETED) 40 mg, IntraVENous, Administer over 2 Minutes, Once, On 02/21/23 at 1245, For 1 dose, Reconstitute with 10 ml NS. Vial expires 2 hrs after reconstitution. 1249 (Given - Provid er: Lilian Ramirez RN) promethazine (Phenergan) injection 12.5 mg (COMPLETED) 12.5 mg, IntraMUSCular, Once, On 02/21/23 at 1430, For 1 dose, Only to be given as IM injection. 1439 (Given - Provid er: Lilian Ramirez RN) PRN Medication Order 02/19/2023 02/20/2023 02/21/2023 HYDROmorphone (Dilaudid) injection 0.5 mg 0.5 mg, IntraVENous, Every 4 hours PRN, severe pain (7-10), Starting on 02/21/23 at 1508, If oral and IV narcotics ordered, use oral first and only use IV if oral is ineffective or cannot take oral. Do Not give oral and IV within 1 hour of each other unless specifically ordered. 1520 (Given - Provid er: Lilian Ramirez RN) Scheduled Medication Order 03/01/2023 03/02/2023 03/03/2023 acetaminophen (Tylenol) tablet 1,000 mg 1,000 mg, Oral, Every 8 hours, First dose on 02/28/23 at 0415 0526 (Given - Provider: Bertha Francois RN)1200 (Given - Provider: Jennie Worley RN)2015 (Not Given - Provider: Judith Whelan RN - Reason: Patient/family refused) 0415 (Not Given - Provider: Judith Whelan RN - Reason: Patient/family refused)1154 (Given - Provider: Demetri Omalley RN)1304 (MAR Hold - Provider: Automatic Transfer Provider - Reason: Patient not available)1522 (MAR Unhold - Provider: Automatic Transfer Provider)2129 (Given - Provider: Michelle Dye, CIRO) 0416 (Given - Provider: Michelle Dye, CIRO)1215 (Canceled Entry - Provider: Automatic Discharge Provider - Comment: Automatically canceled at discontinue of medication order) buPROPion XL (Wellbutrin XL) 24 hr tablet 150 mg 150 mg, Oral, Daily, First dose on 02/28/23 at 0900, Do not crush, chew, or split. 1108 (Given - Provider: Rosanna Jamil - Comment: medication came split in half in package. med reordered given now) 0839 (Given - Provider: Demetri Omalley, CIRO)1304 (MAR Hold - Provider: Automatic Transfer Provider - Reason: Patient not available)1522 (MAR Unhold - Provider: Automatic Transfer Provider) 0900 (Not Given - Provider: Tiff Escamilla RN - Reason: Medication not available) busPIRone (Buspar) tablet 10 mg 10 mg, Oral, 2 times daily, First dose on 02/28/23 at 0900 0812 (Given - Provider: Jennie Worley RN)2110 (Given - Provider: Judith Whelan RN) 0839 (Given - Provider: Demetri Omalley RN)1304 (JUN Hold - Provider: Automatic Transfer Provider - Reason: Patient not available)1522 (JUN Unhold - Provider: Automatic Transfer Provider)2130 (Given - Provider: Michelle Dye, CIRO) 0847 (Given - Provider: Tiff Escamilla, CIRO) cholestyramine (Questran) packet 4 g 4 g (1 packet), Oral, 2 times daily, First dose on 02/28/23 at 1030 0825 (Given - Provider: Jennie Worley RN)2120 (Given - Provider: Judith Whelan RN) 0837 (Given - Provider: Demetri Omalley RN)1304 (JUN Hold - Provider: Automatic Transfer Provider - Reason: Patient not available)1522 (JUN Unhold - Provider: Automatic Transfer Provider)2130 (Given - Provider: Michelle Dye, CIRO) 0900 (Not Given - Provider: Tiff Escamilla RN - Reason: Patient/family refused) dicyclomine (Bentyl) capsule 10 mg 10 mg, Oral, 4 times daily, First dose on 02/28/23 at 0900 0813 (Given - Provider: Jennie Worley RN)1200 (Given - Provider: Jennie Worley RN)1719 (Given - Provider: Rosanna Jamil)2110 (Given - Provider: Judith Whelan RN) 0839 (Given - Provider: Demetri Omalley RN)1155 (Given - Provider: Demetri Omalley RN)1304 (JUN Hold - Provider: Automatic Transfer Provider - Reason: Patient not available)1522 (JUN Unhold - Provider: Automatic Transfer Provider)1708 (Given - Provider: Demetri Omalley RN)2129 (Given - Provider: Michelle Dye, CIRO) 0847 (Given - Provider: Tiff Escamilla RN)1300 (Canceled Entry - Provider: Automatic Discharge Provider - Comment: Automatically canceled at discontinue of medication order) enoxaparin (Lovenox) syringe 40 mg 40 mg, SubCUTAneous, Every 24 hours, First dose on 02/28/23 at 0900, Indication of Use: Prophylaxis-DVT/PE, Indications: Prophylaxis of Venous Thromboembolism 0812 (Given - Provider: Jennie Worley RN) 0839 (Given - Provider: Demetri mOalley RN)1304 (MAR Hold - Provider: Automatic Transfer Provider - Reason: Patient not available)1522 (MAR Unhold - Provider: Automatic Transfer Provider) 0847 (Given - Provider: Tiff Escamilla RN) gabapentin (Neurontin) capsule 600 mg 600 mg, Oral, 3 times daily, First dose on 02/28/23 at 0900 0812 (Given - Provider: Jennie Worley RN)1304 (Given - Provider: Jennie Worley RN)2110 (Given - Provider: Judith Whelan RN) 0840 (Given - Provider: Demetri Omalley RN)1304 (MAR Hold - Provider: Automatic Transfer Provider - Reason: Patient not available)1400 (Dose Auto Held - Provider: Automatic Transfer Provider)1522 (MAR Unhold - Provider: Automatic Transfer Provider)212 (Given - Provider: Michelle Dye RN) 0847 (Given - Provider: Tiff Escamilla RN) hydrOXYzine pamoate (Vistaril) capsule 25 mg 25 mg, Oral, 2 times daily, First dose on 02/28/23 at 0900 0812 (Given - Provider: Jennie Worley RN)2110 (Given - Provider: Judith Whelan RN) 0840 (Given - Provider: Demetri Omalley RN)1304 (MAR Hold - Provider: Automatic Transfer Provider - Reason: Patient not available)1522 (MAR Unhold - Provider: Automatic Transfer Provider)212 (Given - Provider: Michelle Dye, CIRO) 0846 (Given - Provider: Tiff Escamilla RN) levothyroxine (Synthroid, Levoxyl) tablet 75 mcg 75 mcg, Oral, Daily before breakfast, First dose on 02/28/23 at 0700, Tube feeding (TF) interaction, obtain physician order to manage, recommend holding TF for 30 minutes before and after dose., Indications: Hypothyroidism 0526 (Given - Provider: Bertha Francois RN) 0525 (Given - Provider: Judith Whelan RN)1304 (MAR Hold - Provider: Automatic Transfer Provider - Reason: Patient not available)1522 (MAR Unhold - Provider: Automatic Transfer Provider) 0521 (Given - Provider: Michelle Dye RN) Lidocaine 4 % patch 1 patch 1 patch, TransDERmal, Administer over 12 Hours, Daily, First dose on 03/01/23 at 2000, Apply patch to area of most pain. Patch may remain in place for up to 12 hours in any 24 hour period. 211 (Medication Applied - Provider: Judith Whelan RN - Comment: RUQ) 0859 (Medication Removed - Provider: Demetri Omalley RN)0900 (Not Given - Provider: Demetri Omalley RN - Reason: Patient/family refused)1304 (JUN Hold - Provider: Automatic Transfer Provider - Reason: Patient not available)1522 (JUN Unhold - Provider: Automatic Transfer Provider) 0848 (Medication Applied - Provider: Tiff Escamilla RN)1148 (Due: Medication Removed - Provider: Automatic Discharge Provider - Comment: Time automatically adjusted from order being discontinued) methocarbamol (Robaxin) tablet 750 mg 750 mg, Oral, Every 6 hours scheduled (4 times per day), First dose on 03/01/23 at 0130 0130 (Not Given - Provider: Bertha Francois RN - Reason: Other)0526 (Given - Provider: Bertha Francois RN)1109 (Given - Provider: Rosanna Jamil)1719 (Given - Provider: Rosanna Jamil) 0121 (Given - Provider: Judith Whelan RN)0523 (Given - Provider: Judith Whelan RN)1154 (Given - Provider: Demetri Omalley RN)1304 (JUN Hold - Provider: Automatic Transfer Provider - Reason: Patient not available)1522 (JUN Unhold - Provider: Automatic Transfer Provider)1708 (Given - Provider: Demetri Omalley RN)2129 (Given - Provider: Michelle Dye, CIRO) 0417 (Given - Provider: Michelle Dye RN)1200 (Canceled Entry - Provider: Automatic Discharge Provider - Comment: Automatically canceled at discontinue of medication order) pantoprazole (ProtoNix) 40 mg in sodium chloride (PF) 0.9 % 10 mL injection 40 mg, IntraVENous, Administer over 2 Minutes, 2 times daily, First dose on 02/28/23 at 1015, Give only if unable to tolerate po. 0812 (Given - Provider: Jennie Worley, RN)2110 (Given - Provider: Judith Whelan, CRIO) 0840 (Given - Provider: Demetri Omalley, RN)1304 ([facility] Hold - Provider: Automatic Transfer Provider - Reason: Patient not available)1522 ([facility] Unhold - Provider: Automatic Transfer Provider)2129 (Given - Provider: Michelle Dye, CIRO) 0846 (Given - Provider: Tiff Escamilla, RN) polyethylene glycol (PEG) 3350 (Miralax) packet 17 g 17 g, Oral, Daily, First dose on 03/01/23 at 0915 0915 (Not Given - Provider: Jennie Worley RN - Reason: Patient/family refused) 0900 (Not Given - Provider: Demetri Omalley RN - Reason: Patient/family refused)1304 ([facility] Hold - Provider: Automatic Transfer Provider - Reason: Patient not available)1522 ([facility] Unhold - Provider: Automatic Transfer Provider) 0900 (Not Given - Provider: Tiff Escamilla RN - Reason: Patient/family refused) scopolamine (Transderm-Scop) patch 1 patch 1 patch, TransDERmal, Administer over 72 Hours, Every 72 hours, First dose on 02/28/23 at 0415, Apply to hairless area of skin behind the ear. 1304 ([facility] Hold - Provider: Automatic Transfer Provider - Reason: Patient not available)1522 ([facility] Unhold - Provider: Automatic Transfer Provider) 0414 (Medication Removed - Provider: Michelle Dye, RN)0416 (Medication Applied - Provider: Michelle Dye, CIRO)1148 (Due: Medication Removed - Provider: Automatic Discharge Provider - Comment: Time automatically adjusted from order being discontinued) sertraline (Zoloft) tablet 50 mg 50 mg, Oral, Daily, First dose on 02/28/23 at 0900 0813 (Given - Provider: Jennie Worley RN) 0840 (Given - Provider: Demetri Omalley, CIRO)1304 ([facility] Hold - Provider: Automatic Transfer Provider - Reason: Patient not available)1522 ([facility] Unhold - Provider: Automatic Transfer Provider) 0846 (Given - Provider: Tiff Escamilla, CIRO) sucralfate (Carafate) tablet 1 g (CANCELED) 1 g, Oral, Every 6 hours scheduled (4 times per day), First dose on 02/28/23 at 1200, Give on an empty stomach (1 hr before meals, at bedtime). Separate all other meds by at least 2 hours (exception: antacids may be given only 30 minutes apart). 0004 (Given - Provider: Bertha Francois RN)0526 (Given - Provider: Bertha Francois RN)1109 (Given - Provider: Rosanna Jamil)1719 (Given - Provider: Rosanna Jamil) 0120 (Given - Provider: Judith Whelan RN)0600 (Given - Provider: Judith Whelan RN)1154 (Given - Provider: Demetri Omalley RN)1304 (MAR Hold - Provider: Automatic Transfer Provider - Reason: Patient not available)1522 (MAR Unhold - Provider: Automatic Transfer Provider) Continuous Medication Order 03/01/2023 03/02/2023 03/03/2023 lactated Ringer's (LR) infusion (CANCELED) 100 mL/hr, IntraVENous, Continuous, Starting on 02/28/23 at 0415 0026 (New Bag - Provider: Bertha Francois RN)0913 (New Bag - Provider: Jennie Worley RN)0926 (Rate/Dose Verify - Provider: Jennie Worley RN)1156 (Rate/Dose Verify - Provider: Jennie Worley RN)1552 (Rate/Dose Verify - Provider: Jennie Worley RN)1808 (Rate/Dose Verify - Provider: Jennie Worley RN)1815 (New Bag - Provider: Jennie Worley RN) 0523 (New Bag - Provider: Judith Whelan RN) PRN Medication Order 03/01/2023 03/02/2023 03/03/2023 HYDROmorphone (Dilaudid) injection 0.5 mg 0.5 mg, IntraVENous, Every 3 hours PRN, breakthrough pain, Starting on 02/28/23 at 0408, If oral and IV narcotics ordered, use oral first and only use IV if oral is ineffective or cannot take oral. Do Not give oral and IV within 1 hour of each other unless specifically ordered. 0812 (Given - Provider: Jennie Worley RN)1305 (Given - Provider: Jennie Worley RN)1818 (Given - Provider: Jennie Worley RN)2226 (Given - Provider: Judith Whelan RN) 0217 (Given - Provider: Judith Whelan RN)0632 (Given - Provider: Judith Whelan RN)1023 (Given - Provider: Demetri Omalley RN)1304 (MAR Hold - Provider: Automatic Transfer Provider - Reason: Patient not available)1522 (MAR Unhold - Provider: Automatic Transfer Provider)1726 (Given - Provider: Demetri Omalley RN)2140 (Given - Provider: Michelle Dye, RN) 0415 (Given - Provider: Michelle Dye, CIRO)0847 (Given - Provider: Tiff Escamilla RN) HYDROmorphone (Dilaudid) injection 0.5 mg (CANCELED) 0.5 mg, IntraVENous, Every 5 min PRN, severe pain (7-10), Starting on 03/02/23 at 1428, For 4 doses, Recovery (only), Phase I and Phase II- Initial therapy for severe pain (7-10). Restricted to a 90 minute time frame starting when the patient can verbally state their pain score. If after 2 doses the pain score does not decrease by more than one point, then call the provider. If oral meds are utilized, do not return to initial therapy medications. 1433 (Given - Provider: Crystal Elkins RN) ondansetron (Zofran) injection 4 mg(Linked Group 1) 4 mg, IntraVENous, Every 6 hours PRN, nausea, vomiting, Starting on 02/28/23 at 0408, 1st Line. Give IV if patient is unable to take orally. If inadequate response within 60 minutes, proceed to next-line agent or contact provider if no further options ordered. 0830 (Given - Provider: Jennie Worley RN)2229 (Given - Provider: Judith Whelan RN) 0632 (Given - Provider: Judith Whelan RN)1304 (MAR Hold - Provider: Automatic Transfer Provider - Reason: Patient not available)1522 (MAR Unhold - Provider: Automatic Transfer Provider) ondansetron ODT (Zofran-ODT) disintegrating tablet 4 mg(Linked Group 1) 4 mg, Oral, Every 8 hours PRN, nausea, vomiting, Starting on 02/28/23 at 0408, 1st Line. If inadequate response within 60 minutes, proceed to next-line agent or contact provider if no further options ordered. Patient should allow tablet to dissolve on tongue. Do not remove from blister pack until just before administering. 0830 (See Alternative - Provider: Jennie Worley RN)2229 (See Alternative - Provider: Judith Whelan RN) 0632 (See Alternative - Provider: Judith Whelan RN)1304 (MAR Hold - Provider: Automatic Transfer Provider - Reason: Patient not available)1522 (MAR Unhold - Provider: Automatic Transfer Provider) oxyCODONE (Roxicodone) immediate release tablet 10 mg(Linked Group 2) 10 mg, Oral, Every 4 hours PRN, severe pain (7-10), Starting on 02/28/23 at 0408 0702 (Given - Provider: Bertha Francois RN)1200 (Given - Provider: Jennie Worley RN)1719 (Given - Provider: Rosanna Jamil)2118 (Given - Provider: Judith Whelan RN) 0121 (Given - Provider: Judith Whelan RN)0523 (Given - Provider: Judith Whelan RN)1252 (Given - Provider: Demetri Omalley, CIRO)1304 (MAR Hold - Provider: Automatic Transfer Provider - Reason: Patient not available)1522 (MAR Unhold - Provider: Automatic Transfer Provider)1913 (Given - Provider: Demetri Omalley, RN) 0150 (Given - Provider: Michelle Dye, CIRO)0521 (Given - Provider: Michelle Dye, RN) oxyCODONE (Roxicodone) immediate release tablet 5 mg(Linked Group 2) 5 mg, Oral, Every 4 hours PRN, moderate pain (4-6), Starting on 02/28/23 at 0408 0702 (See Alternative - Provider: Bertha Francois RN)1200 (See Alternative - Provider: Jennie Worley RN)1719 (See Alternative - Provider: Rosanna Jamil)2118 (See Alternative - Provider: Judith Whelan RN) 0121 (See Alternative - Provider: Judith Whelan RN)0523 (See Alternative - Provider: Judith Whelan RN)1252 (See Alternative - Provider: Demetri Omalley RN)1304 ([facility] Hold - Provider: Automatic Transfer Provider - Reason: Patient not available)1522 ([facility] Unhold - Provider: Automatic Transfer Provider)1913 (See Alternative - Provider: Demetri Omalley RN) 0150 (See Alternative - Provider: Michelle Dye, RN)0521 (See Alternative - Provider: Michelle Dye, RN) promethazine (Phenergan) injection 6.25 mg 6.25 mg, IntraMUSCular, Every 6 hours PRN, nausea, vomiting, Starting on 02/28/23 at 0408, Only to be given as IM injection. 1304 ([facility] Hold - Provider: Automatic Transfer Provider - Reason: Patient not available)1522 ([facility] Unhold - Provider: Automatic Transfer Provider) senna-docusate sodium (Senokot-S) 8.6-50 MG tablet 2 tablet 2 tablet, Oral, Daily PRN, constipation, Starting on 03/01/23 at 0913 1108 (Given - Provider: Rosanna Jamil) 1304 ([facility] Hold - Provider: Automatic Transfer Provider - Reason: Patient not available)1522 ([facility] Unhold - Provider: Automatic Transfer Provider) Linked Groups Order Group 1: ondansetron ODT (Zofran-ODT) disintegrating tablet 4 mgJump to med 4 mg, Oral, Every 8 hours PRN, nausea, vomiting, Starting on 02/28/23 at 0408, 1st Line. If inadequate response within 60 minutes, proceed to next-line agent or contact provider if no further options ordered. Patient should allow tablet to dissolve on tongue. Do not remove from blister pack until just before administering. Or ondansetron (Zofran) injection 4 mgJump to med 4 mg, IntraVENous, Every 6 hours PRN, nausea, vomiting, Starting on 02/28/23 at 0408, 1st Line. Give IV if patient is unable to take orally. If inadequate response within 60 minutes, proceed to next-line agent or contact provider if no further options ordered. Group 2: oxyCODONE (Roxicodone) immediate release tablet 5 mgJump to med 5 mg, Oral, Every 4 hours PRN, moderate pain (4-6), Starting on 02/28/23 at 0408 Or oxyCODONE (Roxicodone) immediate release tablet 10 mgJump to med 10 mg, Oral, Every 4 hours PRN, severe pain (7-10), Starting on 02/28/23 at 0408 Scheduled Medication Order 03/02/2023 03/03/2023 03/04/2023 aluminum & magnesium hydroxide-simethicone (Mylanta) 200-200-20 MG/5ML oral suspension 20 mL (COMPLETED) 20 mL, Oral, Once, On Thu03/04/23 at 1740, For 1 dose 175 (Given - Provid er: Mann Kc RN) famotidine (Pepcid) 20 mg in sodium chloride (PF) 0.9 % 10 mL injection (COMPLETED) 20 mg, IntraVENous, Administer over 2 Minutes, Once, On Thu03/04/23 at 1740, For 1 dose, IV Push over minimum of 2 minutes - Dilute with 10 mL NS 175 (Given - Provid er: Mann Kc RN) morphine injection 2 mg (COMPLETED) 2 mg, IntraVENous, Once, On Thu03/04/23 at 1740, For 1 dose, If oral and IV narcotics ordered, use oral first and only use IV if oral is ineffective or cannot take oral. Do Not give oral and IV within 1 hour of each other unless specifically ordered. 175 (Given - Provid er: Mann Kc RN) sodium chloride 0.9 % bolus 1,000 mL (COMPLETED) 1,000 mL, IntraVENous, at 1,000 mL/hr, Administer over 1 Hours, Once, On Thu03/04/23 at 1620, For 1 dose 1620 (New Bag - Prov ider: Mann Kc RN)1720 (Stopped - Provider: Mann Kc RN) traMADol (Ultram) tablet 50 mg (COMPLETED) 50 mg, Oral, Once, On Thu03/04/23 at 1620, For 1 dose 1621 (Given - Provid er: Mann Kc RN) Scheduled Medication Order 04/08/2023 04/09/2023 04/10/2023 diatrizoate meglumine-sodium (Gastrografin) 66-10 % solution 30 mL (COMPLETED) 30 mL, Oral, Once, On Thu04/10/23 at 1335, For 1 dose, 1. INPATIENTS 30ML GASTROGRAFIN MIXED IN 32OZ OF WATER-DRINK HALF 2 HRS BEFORE AND THE HALF 1HR BEFORE EXAM. 2. EMERGENCY PATIENTS 30ML GASTROGRAFIN MIXED IN 32OZ OF WATER AND WAIT 1 HOUR THEN SCAN. 1335 (Given - Provid er: Ayaka Dow, RT (R)(CT)) morphine injection 4 mg (COMPLETED) 4 mg, IntraVENous, Once, On Thu04/10/23 at 1350, For 1 dose, If oral and IV narcotics ordered, use oral first and only use IV if oral is ineffective or cannot take oral. Do Not give oral and IV within 1 hour of each other unless specifically ordered. 142 (Given - Provid er: Melvi Cavanaugh RN) Scheduled Medication Order 08/15/2023 08/16/2023 08/17/2023 cefTRIAXone (Rocephin) 1,000 mg in sodium chloride 0.9 % 50 mL IVPB Mini-Bag Plus (COMPLETED) 1,000 mg, IntraVENous, at 100 mL/hr, Administer over 30 Minutes, Once, On Thu08/17/23 at 2024, For 1 dose, Mini-Bag Plus bag, Suspected Indication (Select all that apply): Urinary Tract Infection 2051 (New Bag - Prov ider: Michelle Jorgensen RN)2121 (Stopped - Provider: Michelle Jorgenesn RN) PRN Medication Order 08/15/2023 08/16/2023 08/17/2023 LORazepam (Ativan) injection 1 mg (COMPLETED) 1 mg, IntraVENous, Once PRN, anxiety, prior to conte placement, Starting on Thu08/17/23 at 211, For 1 dose, For IV doses dilute dose with 1ml NS. 2127 (Given - Provid er: Michelle Jorgensen RN) Scheduled Medication Order 08/18/2023 08/19/2023 08/20/2023 atorvastatin (Lipitor) tablet 80 mg 80 mg, Oral, Daily, First dose on Thu08/18/23 at 0900, Indications: Hyperlipidemia 0924 (Given - Provider: Melvi Cavanaugh RN) 0811 (Given - Provider: Dustin Davidson, RN) 0806 (Given - Provider: Daja Bucio, RN) cefTRIAXone (Rocephin) 1,000 mg in sodium chloride 0.9 % 50 mL IVPB Mini-Bag Plus (CANCELED) 1,000 mg, IntraVENous, at 100 mL/hr, Administer over 30 Minutes, Every 24 hours, First dose on Thu08/18/23 at 2100, Mini-Bag Plus bag, Suspected Indication (Select all that apply): Urinary Tract Infection 2148 (New Bag - Provider: Shonda Umanzor, RN)2218 (Stopped - Provider: Shonda Umanzor, RN) cefTRIAXone (Rocephin) 1,000 mg in sodium chloride 0.9 % 50 mL IVPB Mini-Bag Plus (COMPLETED) 1,000 mg, IntraVENous, at 100 mL/hr, Administer over 30 Minutes, Every 24 hours, First dose (after last modification) on Thu08/19/23 at 2200, For 1 dose, Mini-Bag Plus bag, Suspected Indication (Select all that apply): Urinary Tract Infection 2218 (New Bag - Provider: Eagle Delgadillo RN)224 (Stopped - Provider: Eagle Delgadillo RN) cholestyramine (Questran) packet 4 g 4 g (1 packet), Oral, Daily, First dose on Thu08/18/23 at 0900 0900 (Not Given - Provider: Melvi Cavanaugh RN - Reason: Patient/family refused) 0900 (Not Given - Provider: Dustin Davidson RN - Reason: Patient/family refused) 0900 (Not Given - Provider: Daja Bucio RN - Reason: Patient/family refused - Comment: Patient states that patient has not taken med for over a year.) fluticasone (Flonase) nasal spray 1 spray 1 spray, Each Nostril, Daily, First dose on Thu08/18/23 at 0900, Shake gently. Before first use, prime pump (press 6 times until fine spray appears). After use, clean tip and replace cap. 1055 (Given - Provider: Melvi Cavanaugh RN) 0810 (Not Given - Provider: Dustin Davidson RN - Reason: Patient/family refused) 0810 (Given - Provider: Daja Bucio, RN) gabapentin (Neurontin) capsule 600 mg 600 mg, Oral, 3 times daily, First dose on Thu08/18/23 at 0900 0924 (Given - Provider: Melvi Cavanaugh RN)1535 (Given - Provider: Melvi Cavanaugh RN)2018 (Given - Provider: Shonda Umanzor, RN) 0811 (Given - Provider: Dustin Davidson, RN)1430 (Given - Provider: Dustin Davidson, RN)2016 (Given - Provider: Eagle Delgadillo RN) 0806 (Given - Provider: Daja Bucio, RN)1603 (Given - Provider: Daja Bucio, RN) HYDROmorphone (Dilaudid) injection 0.5 mg (COMPLETED) 0.5 mg, IntraVENous, Once, On Thu08/18/23 at 0325, For 1 dose, If oral and IV narcotics ordered, use oral first and only use IV if oral is ineffective or cannot take oral. Do Not give oral and IV within 1 hour of each other unless specifically ordered. 0325 (Given - Provider: Digna Cruz RN) HYDROmorphone (Dilaudid) injection 0.5 mg (COMPLETED) 0.5 mg, IntraVENous, Once, On Thu08/19/23 at 2015, For 1 dose, If oral and IV narcotics ordered, use oral first and only use IV if oral is ineffective or cannot take oral. Do Not give oral and IV within 1 hour of each other unless specifically ordered. 2016 (Given - Provider: Eagle Delgadillo RN) levothyroxine (Synthroid, Levoxyl) tablet 75 mcg 75 mcg, Oral, Daily before breakfast, First dose on Thu08/18/23 at 0600, Tube feeding (TF) interaction, obtain physician order to manage, recommend holding TF for 30 minutes before and after dose., Indications: Hypothyroidism 0704 (Given - Provider: Digna Cruz RN) 0516 (Given - Provider: Shonda Umanzor, RN) 0639 (Given - Provider: Eagle Delgadillo RN) lidocaine (Uro-Jet) 2 % gel (COMPLETED) Urethral, Once, On Thu08/18/23 at 0450, For 1 dose 0451 (Given - Provider: Digna Cruz RN) lidocaine (Uro-Jet) 2 % gel (COMPLETED) Urethral, Once, On Thu08/18/23 at 0515, For 1 dose 0519 (Given - Provider: Digna Cruz RN) mometasone-formoterol (Dulera 100) 100-5 MCG/ACT inhaler 2 puff 2 puff, Inhalation, 2 times daily, First dose on Thu08/18/23 at 0800, Rinse mouth with water after use to reduce aftertaste and incidence of candidiasis. Do not swallow. 1055 (Given - Provider: Melvi Cavanaugh RN)2126 (Given - Provider: Shonda Umanzor, CIRO) 08 (Given - Provider: Dustin Davidson RN)1999 (Not Given - Provider: Eagle Delgadillo RN - Reason: Patient/family refused) 809 (Given - Provider: Daja Bucio RN)1999 (Canceled Entry - Provider: Automatic Discharge Provider - Comment: Automatically canceled at discontinue of medication order) pantoprazole (ProtoNix) EC tablet 40 mg 40 mg, Oral, Daily, First dose on Thu08/18/23 at 0900, Do not crush, chew, or split. 09 (Given - Provider: Melvi Cavanaugh RN) 08 (Given - Provider: Dustin Davidson RN) 0806 (Given - Provider: Daja Bucio RN) tamsulosin (Flomax) 24 hr capsule 0.4 mg 0.4 mg, Oral, Daily, First dose on Thu08/18/23 at 0900, Do not crush, chew, or split. 0924 (Given - Provider: Melvi Cavanaugh RN) 08 (Given - Provider: Dustin Davidson RN) 08 (Given - Provider: Daja Bucio RN) PRN Medication Order 08/18/2023 08/19/2023 08/20/2023 acetaminophen (Tylenol) suppository 650 mg(Linked Group 1) 650 mg, Rectal, Every 6 hours PRN, mild pain (1-3), fever, For temp greater than 100.4 F (38 C), Starting on Thu08/18/23 at 0441, Administer if oral route cannot be used. Maximum dose of acetaminophen is 4000 mg from all sources in 24 hours. 113 (See Alternative - Provider: Melvi Cavanaugh RN)2018 (See Alternative - Provider: Shonda Umanzor RN) 0806 (See Alternative - Provider: Daja Bucio RN) acetaminophen (Tylenol) tablet 650 mg(Linked Group 1) 650 mg, Oral, Every 6 hours PRN, mild pain (1-3), fever, For temp greater than 100.4 F (38 C), Starting on Thu08/18/23 at 0441, Maximum dose of acetaminophen is 4000 mg from all sources in 24 hours. 1134 (Given - Provider: Melvi Cavanaugh RN)2019 (Given - Provider: Shonda Umanzor RN) 0806 (Given - Provider: Daja Bucio RN) HYDROmorphone (Dilaudid) injection 0.5 mg (CANCELED) 0.5 mg, IntraVENous, Every 3 hours PRN, severe pain (7-10), Starting on Thu08/18/23 at 0627, If oral and IV narcotics ordered, use oral first and only use IV if oral is ineffective or cannot take oral. Do Not give oral and IV within 1 hour of each other unless specifically ordered. 0704 (Given - Provider: Digna Cruz RN)1135 (Given - Provider: Melvi Cavanaugh RN)1832 (Given - Provider: Therese Ruiz RN)214 (Given - Provider: Shonda Umanzor RN) HYDROmorphone (Dilaudid) injection 1 mg (CANCELED) 1 mg, IntraVENous, Every 4 hours PRN, severe pain (7-10), Starting on Thu08/18/23 at 2352, If oral and IV narcotics ordered, use oral first and only use IV if oral is ineffective or cannot take oral. Do Not give oral and IV within 1 hour of each other unless specifically ordered. 0515 (Given - Provider: Shonda Umanzor RN) lidocaine (Uro-Jet) 2 % gel (CANCELED) Urethral, PRN, mild pain (1-3), Starting on Thu08/18/23 at 1004 1135 (Given - Provider: Melvi Cavanaugh RN)3 (Given - Provider: Shonda Umanzor RN) lidocaine (Uro-Jet) 2 % gel Urethral, PRN, mild pain (1-3), Starting on Thu08/19/23 at 1422 1430 (Given - Provider: Dustin Davidson RN) naloxone (Narcan) injection 0.4 mg 0.4 mg, IntraVENous, Every 5 min PRN, opioid reversal, respiratory depression, Starting on Thu08/18/23 at 0447, +++ For RR <10, pinpoint pupils, over sedation for opioid reversal - MUST notify clinical transformation specialist provider immediately after first dose, may give IM or SQ if no IV access +++ ondansetron (Zofran) injection 4 mg(Linked Group 2) 4 mg, IntraVENous, Every 6 hours PRN, nausea, vomiting, Starting on Thu08/18/23 at 0441, 1st Line. Give IV if patient is unable to take orally. If inadequate response within 60 minutes, proceed to next-line agent or contact provider if no further options ordered. 0130 (See Alternative - Provider: Eagle Delgadillo RN) ondansetron ODT (Zofran-ODT) disintegrating tablet 4 mg(Linked Group 2) 4 mg, Oral, Every 8 hours PRN, nausea, vomiting, Starting on Thu08/18/23 at 0441, 1st Line. If inadequate response within 60 minutes, proceed to next-line agent or contact provider if no further options ordered. Patient should allow tablet to dissolve on tongue. Do not remove from blister pack until just before administering. 0130 (Given - Provider: Eagle Delgadillo RN) oxyCODONE (Roxicodone) immediate release tablet 10 mg (CANCELED) 10 mg, Oral, Every 4 hours PRN, moderate pain (4-6), Starting on Thu08/19/23 at 0300 0208 (Given - Provider: Shonda Umanzor RN)0811 (Given - Provider: Dustin Davidson, CIRO)1248 (Given - Provider: Dustin Davidson RN) oxyCODONE (Roxicodone) immediate release tablet 10 mg 10 mg, Oral, Every 4 hours PRN, severe pain (7-10), Starting on Thu08/19/23 at 1537 1838 (Given - Provider: Dustin Davidson, CIRO) 0806 (Given - Provider: Daja Bucio RN) oxyCODONE-acetaminophen (Percocet) 5-325 MG per tablet 1 tablet (CANCELED) 1 tablet, Oral, Every 8 hours PRN, moderate pain (4-6), Starting on Thu08/18/23 at 0445, Maximum dose of acetaminophen is 4000 mg from all sources in 24 hours. 0535 (Given - Provider: Digna Cruz, RN)1535 (Given - Provider: Melvi Cavanaugh, CIRO)2331 (Given - Provider: Shonda Umanzor RN) polyethylene glycol (PEG) 3350 (Miralax) packet 17 g 17 g, Oral, Daily PRN, constipation, Starting on Thu08/18/23 at 0441, 1st line for treatment of constipation - give scheduled if no bowel movement in past 24 hours. traMADol (Ultram) tablet 100 mg 100 mg, Oral, Every 6 hours PRN, moderate pain (4-6), Starting on Thu08/19/23 at 1536 0128 (Given - Provider: Eagle Delgadillo RN) Linked Groups Order Group 1: acetaminophen (Tylenol) tablet 650 mgJump to med 650 mg, Oral, Every 6 hours PRN, mild pain (1-3), fever, For temp greater than 100.4 F (38 C), Starting on Thu08/18/23 at 0441, Maximum dose of acetaminophen is 4000 mg from all sources in 24 hours. Or acetaminophen (Tylenol) suppository 650 mgJump to med 650 mg, Rectal, Every 6 hours PRN, mild pain (1-3), fever, For temp greater than 100.4 F (38 C), Starting on Thu08/18/23 at 0441, Administer if oral route cannot be used. Maximum dose of acetaminophen is 4000 mg from all sources in 24 hours. Group 2: ondansetron ODT (Zofran-ODT) disintegrating tablet 4 mgJump to med 4 mg, Oral, Every 8 hours PRN, nausea, vomiting, Starting on Thu08/18/23 at 0441, 1st Line. If inadequate response within 60 minutes, proceed to next-line agent or contact provider if no further options ordered. Patient should allow tablet to dissolve on tongue. Do not remove from blister pack until just before administering. Or ondansetron (Zofran) injection 4 mgJump to med 4 mg, IntraVENous, Every 6 hours PRN, nausea, vomiting, Starting on Thu08/18/23 at 0441, 1st Line. Give IV if patient is unable to take orally. If inadequate response within 60 minutes, proceed to next-line agent or contact provider if no further options ordered. Scheduled Medication Order 08/20/2023 08/21/2023 08/22/2023 ALPRAZolam (Xanax) tablet 0.25 mg (COMPLETED) 0.25 mg, Oral, Once, On Thu08/21/23 at 2145, For 1 dose 2152 (Given - Provider: Ramón Jackson RN) cefTRIAXone (Rocephin) 1,000 mg in sodium chloride 0.9 % 50 mL IVPB Mini-Bag Plus (COMPLETED) 1,000 mg, IntraVENous, at 100 mL/hr, Administer over 30 Minutes, Once, On Thu08/21/23 at 2300, For 1 dose, Mini-Bag Plus bag, Suspected Indication (Select all that apply): Urinary Tract Infection 2303 (New Bag - Provider: Ramón Jackson RN)2331 (Stopped - Provider: Ramón Jackson RN) HYDROmorphone (Dilaudid) injection 0.25 mg (COMPLETED) 0.25 mg, IntraVENous, Once, On Thu08/21/23 at 2140, For 1 dose, If oral and IV narcotics ordered, use oral first and only use IV if oral is ineffective or cannot take oral. Do Not give oral and IV within 1 hour of each other unless specifically ordered. 2153 (Given - Provider: Ramón Jackson RN) sodium chloride 0.9 % bolus 1,000 mL (COMPLETED) 1,000 mL, IntraVENous, at 1,000 mL/hr, Administer over 1 Hours, Once, On Thu08/21/23 at 2140, For 1 dose 2152 (New Bag - Provider: Ramón Jackson RN)2331 (Stopped - Provider: Ramón Jackson RN) Scheduled Medication Order 09/14/2023 09/15/2023 09/16/2023 acetaminophen (Tylenol) tablet 1,000 mg (COMPLETED) 1,000 mg, Oral, Once, On Thu09/16/23 at 0830, For 1 dose, Preprocedure, Administer 60 minutes prior to surgery. 925 (Given - Provid er: Sharri Jackson RN) ceFAZolin (Ancef) 1,000 mg in sodium chloride 0.9 % 50 mL IVPB (COMPLETED) 1,000 mg, IntraVENous, at 100 mL/hr, Administer over 30 Minutes, Once, On Thu09/16/23 at 0830, For 1 dose, Preprocedure, Administer 60 minutes prior to surgery. Mini-Bag Plus bag, Suspected Indication (Select all that apply): Surgical Prophylaxis 1121 (New Bag - Prov ider: Ramón Cantor, PLANT OPERATOR CONTROL ROOM OPERATOR - FURNACE OPERATOR AND TENDER) famotidine (Pepcid) tablet 20 mg (COMPLETED)(Linked Group 1) 20 mg, Oral, Once, On Thu09/16/23 at 0830, For 1 dose, Preprocedure, IV or Oral - Use PO option as first line. If unable to tolerate PO, then okay to use IV. 0926 (Given - Provid er: Sharri Jackson RN) LORazepam (Ativan) injection 0.5 mg (COMPLETED) 0.5 mg, IntraVENous, Once, On Thu09/16/23 at 1230, For 1 dose, Recovery (only), For IV doses dilute dose with 1ml NS. 1229 (Given - Provid er: Rupali Mathew RN) sodium chloride 0.9% (NS) flush 10 mL 10 mL, IntraVENous, Every 12 hours scheduled (2 times per day), First dose on Thu09/16/23 at 0900, Preprocedure 0900 (Canceled Entry - Provider: Automatic Discharge Provider - Comment: Automatically canceled at discontinue of medication order) sodium chloride 0.9% (NS) flush 5-40 mL 5-40 mL, IntraVENous, Every 12 hours, First dose on Thu09/16/23 at 0830, Preprocedure, For Line Patency: Peripheral IV = 5 mL; Midline or Central Line = 10 mL/lumen. If following IV push medication, administer flush at same rate as the IV push. Flush volume is determined by type of infusion therapy being given. For non-viscous solutions use: Peripheral IV = 5 mL Midline or Central Line = 10 mL/lumen For viscous solutions (i.e. blood components, parenteral nutrition, contrast media, or after obtaining blood sample) use: Peripheral IV = 10 mL Midline or Central Line = 20 mL/lumen 0830 (Canceled Entry - Provider: Automatic Discharge Provider - Comment: Automatically canceled at discontinue of medication order) Continuous Medication Order 09/14/2023 09/15/2023 09/16/2023 lactated Ringer's (LR) infusion 50 mL/hr, IntraVENous, Continuous, Starting on Thu09/16/23 at 0830, Preprocedure, Upon admission to sameday - please start iv if patient does not have iv access. Use 500ml NS for patients on dialysis. 0944 (New Bag - Prov ider: Sharri Jackson RN)1119 (Continued by Anesthesia - Provider: GREG Leavitt CRNA)1209 (Anesthesia Volume Adjustment - Provider: GREG Leavitt CRNA) PRN Medication Order 09/14/2023 09/15/2023 09/16/2023 diphenhydrAMINE (BENADryl) injection 12.5 mg 12.5 mg, IntraVENous, Once PRN, itching, Starting on Thu09/16/23 at 1218, For 1 dose, Recovery (only) HYDROmorphone (Dilaudid) injection 0.25 mg 0.25 mg, IntraVENous, Every 5 min PRN, moderate pain (4-6), Starting on Thu09/16/23 at 1218, For 4 doses, Recovery (only), For Phase I. If Phase II oral narcotics have been administered in the last 60 minutes, do not administer IV narcotics unless specifically approved by provider. HYDROmorphone (Dilaudid) injection 0.5 mg 0.5 mg, IntraVENous, Every 5 min PRN, severe pain (7-10), Starting on Thu09/16/23 at 1218, For 4 doses, Recovery (only), For Phase I. If Phase II oral narcotics have been administered in the last 60 minutes, do not administer IV narcotics unless specifically approved by provider. 1220 (Given - Provid er: Rupali Mathew RN)1226 (Given - Provider: Rupali Mathew RN) iopamidol (Isovue-300) 61 % injection (CANCELED) As needed, Starting on Thu09/16/23 at 1139, Intraprocedure 1139 (Given - Provid er: Cristo Coyne MD) meperidine (Demerol) injection 12.5 mg 12.5 mg, IntraVENous, Every 5 min PRN, shivering, Starting on Thu09/16/23 at 1218, For 2 doses, Recovery (only), May give every 5 minutes to max of 25mg. Notify Anesthesia Provider before administration. ondansetron (Zofran) injection 4 mg (COMPLETED) 4 mg, IntraVENous, Once PRN, nausea, Starting on Thu09/16/23 at 1218, For 1 dose, Recovery (only), Initial antiemetic therapy. 1243 (Given - Provid er: Rupali Mathew RN) oxyCODONE (Roxicodone) immediate release tablet 10 mg (COMPLETED)(Linked Group 2) 10 mg, Oral, PRN, severe pain (7-10), Starting on Thu09/16/23 at 1218, For 1 dose, Recovery (only), PHASE II 1418 (Given - Provid er: Rupali Mathew RN) sodium chloride 0.9 % bolus 500 mL 500 mL, IntraVENous, at 1,000 mL/hr, Administer over 0.5 Hours, PRN, Anti-nausea, Starting on Thu09/16/23 at 1218, Recovery (only), Indications: Anti-nausea sodium chloride 0.9 % infusion 5-250 mL/hr, IntraVENous, PRN, if patient receiving piggyback infusions and maintenance fluids are not ordered OR KVO fluids to protect IV site / prevent frequent line interruptions / long duration, Starting on Thu09/16/23 at 0820, Preprocedure, For piggyback infusion, administer at same rate as piggyback for a total of 25 mL. Enter 25 mL into dose field and piggyback rate into rate field of order. If piggyback is infusing at a rate less than 100 mL/hr, enter 25 mL into dose field and 100 mL/hr into rate field of order. For KVO fluids, enter rate of 20 mL/hr or less into rate field of order. sodium chloride 0.9 % infusion 5-250 mL/hr, IntraVENous, PRN, if patient receiving piggyback infusions and maintenance fluids are not ordered OR KVO fluids to protect IV site / prevent frequent line interruptions/ long duration, Starting on Thu09/16/23 at 0820, Preprocedure, For piggyback infusion, administer at same rate as piggyback for a total of 25 mL. Enter 25 mL into dose field and piggyback rate into rate field of order. If piggyback is infusing at a rate less than 100 mL/hr, enter 25 mL into dose field and 100 mL/hr into rate field of order. For KVO fluids, enter rate of 20 mL/hr or less into rate field of order. sodium chloride 0.9% (NS) flush 10 mL 10 mL, IntraVENous, PRN, line care, Starting on Thu09/16/23 at 0820, Preprocedure, After every IV line use sodium chloride 0.9% (NS) flush 5-40 mL 5-40 mL, IntraVENous, PRN, line care, After every IV line use, Starting on Thu09/16/23 at 0820, Preprocedure, For Line Patency: Peripheral IV = 5 mL; Midline or Central Line = 10 mL/lumen. If following IV push medication, administer flush at same rate as the IV push. Flush volume is determined by type of infusion therapy being given. For non-viscous solutions use: Peripheral IV = 5 mL Midline or Central Line = 10 mL/lumen For viscous solutions (i.e. blood components, parenteral nutrition, contrast media, or after obtaining blood sample) use: Peripheral IV = 10 mL Midline or Central Line = 20 mL/lumen Linked Groups Order Group 1: famotidine (Pepcid) tablet 20 mg (COMPLETED)Jump to med 20 mg, Oral, Once, On Thu09/16/23 at 0830, For 1 dose, Preprocedure, IV or Oral - Use PO option as first line. If unable to tolerate PO, then okay to use IV. Or famotidine (Pepcid) 20 mg in sodium chloride (PF) 0.9 % 10 mL injection (COMPLETED) 20 mg, IntraVENous, Administer over 2 Minutes, Once, On Thu09/16/23 at 0830, For 1 dose, Preprocedure, IV or Oral Group 2: oxyCODONE (Roxicodone) immediate release tablet 5 mg (COMPLETED) 5 mg, Oral, PRN, moderate pain (4-6), Starting on Thu09/16/23 at 1218, For 1 dose, Recovery (only), PHASE II Or oxyCODONE (Roxicodone) immediate release tablet 10 mg (COMPLETED)Jump to med 10 mg, Oral, PRN, severe pain (7-10), Starting on Thu09/16/23 at 1218, For 1 dose, Recovery (only), PHASE II Scheduled Medication Order 09/23/2023 09/24/2023 09/25/2023 acetaminophen (Tylenol) tablet 1,000 mg (COMPLETED) 1,000 mg, Oral, Once, On Thu09/23/23 at 0715, For 1 dose, Preprocedure, Administer 60 minutes prior to surgery. 0747 (Given - Provider: Adriane Trejo RN) acetaminophen (Tylenol) tablet 1,000 mg 1,000 mg, Oral, Every 8 hours, First dose on Monica 09/24/23 at 1200, Maximum dose of acetaminophen is 4000 mg from all sources in 24 hours. 1328 (Given - Provider: Eagle Boles RN)2039 (Given - Provider: Clayton Cespedes RN) 0511 (Given - Provider: Clayton Cespedes RN)1200 (Canceled Entry - Provider: Automatic Discharge Provider - Comment: Automatically canceled at discontinue of medication order) baclofen (Lioresal) tablet 10 mg 10 mg, Oral, 2 times daily, First dose on Thu09/23/23 at 1415, Phase II/On Unit 1526 (Given - Provider: Eagle Boles RN)2047 (Given - Provider: Eagle Delgadillo RN) 0817 (Given - Provider: Eagle Boles RN)2038 (Given - Provider: Clayton Cespedes, CIRO) 0925 (Given - Provider: Daja Bucio, CIRO) bumetanide (Bumex) tablet 1 mg 1 mg, Oral, 2 times daily, First dose on Thu09/23/23 at 1415, Phase II/On Unit 1526 (Given - Provider: Eagle Boles RN)2047 (Given - Provider: Eagle Delgadillo RN) 0817 (Given - Provider: Eagle Boles RN)2038 (Given - Provider: Clayton Cespedes, RN) 0925 (Given - Provider: Daja Bucio, RN) buPROPion XL (Wellbutrin XL) 24 hr tablet 150 mg 150 mg, Oral, Daily, First dose on Thu09/23/23 at 1415, Phase II/On Unit, Do not crush, chew, or split. 1526 (Given - Provider: Eagle Boles RN) 0818 (Given - Provider: Eagle Boles RN) 0926 (Given - Provider: Dajahilton Bucio RN) busPIRone (Buspar) tablet 10 mg 10 mg, Oral, 2 times daily, First dose on Thu09/23/23 at 1415, Phase II/On Unit 1525 (Given - Provider: Eagle Boles RN)204 (Given - Provider: Eagle Delgadillo RN) 0816 (Given - Provider: Eagle Boles RN)203 (Given - Provider: Clayton Cespedes, RN) 0925 (Given - Provider: Daja Bucoi RN) ceFAZolin in dextrose 4% (Ancef) IVPB 2,000 mg (COMPLETED) 2,000 mg, IntraVENous, Administer over 30 Minutes, Group Marketing Vp to O.R., On Thu09/23/23 at 0715, For 1 dose, Preprocedure, Administer within 1 hour prior to incision. Recommend to repeat in 3-4 hours after initial dose if still intra-op. premix bag, Suspected Indication (Select all that apply): Surgical Prophylaxis 1030 (Given - Provider: Yovani Moser, PLANT OPERATOR CONTROL ROOM OPERATOR - FURNACE OPERATOR AND TENDER) cholestyramine (Questran) packet 4 g 4 g (1 packet), Oral, Every 24 hours, First dose on Monica 09/24/23 at 0000, Phase II/On Unit 0900 (Not Given - Provider: Eagle Boles RN - Reason: Patient/family refused - Comment: no longer takes) 0900 (Not Given - Provider: Daja Bucio RN - Reason: Patient/family refused) enoxaparin (Lovenox) syringe 30 mg (COMPLETED) 30 mg, SubCUTAneous, Once, On Thu09/23/23 at 0715, For 1 dose, Preprocedure, Inject in thigh preoperatively, Indication of Use: Prophylaxis-DVT/PE 0748 (Given - Provider: Adriane Trejo RN) enoxaparin (Lovenox) syringe 40 mg 40 mg, SubCUTAneous, Every 24 hours, First dose on Thu09/25/23 at 0600, Dose adjusted per renal policy, Indication of Use: Prophylaxis-DVT/PE, Indications: Prophylaxis of Venous Thromboembolism 0510 (Given - Provider: Clayton Cespedes RN) famotidine (Pepcid) tablet 20 mg (COMPLETED)(Linked Group 1) 20 mg, Oral, Once, On Thu09/23/23 at 0715, For 1 dose, Preprocedure, IV or Oral 0748 (Given - Provider: Adriane Trejo RN) finasteride (Proscar) tablet 5 mg 5 mg, Oral, Daily, First dose on Thu09/23/23 at 1415, Phase II/On Unit, Women should not handle crushed or broken finasteride tablets when they are or may potentially be , due to potential risk to the fetus. Do not crush, chew, or split., Indications: Benign Prostatic Hypertrophy 1526 (Given - Provider: Eagle Boles RN) 0818 (Given - Provider: Eagle Boles RN) 0925 (Given - Provider: Daja Bucio, RN) fluconazole (Diflucan) tablet 100 mg 100 mg, Oral, Daily, First dose on Thu09/24/23 at 0900, Phase II/On Unit, Coverage: Yeast/Mold Not Specified, Infection Site: Other, Specify: Abdominal 08 (Given - Provider: Eagle Boles RN) 09 (Given - Provider: Daja Bucio RN) levothyroxine (Synthroid, Levoxyl) tablet 75 mcg 75 mcg, Oral, Daily before breakfast, First dose on Thu09/24/23 at 0600, Phase II/On Unit, Tube feeding (TF) interaction, obtain physician order to manage, recommend holding TF for 30 minutes before and after dose., Indications: Hypothyroidism 0533 (Given - Provider: Eagle Delgadillo RN) 0511 (Given - Provider: Clayton Cespedes, CIRO) mometasone-formoterol (Dulera 100) 100-5 MCG/ACT inhaler 2 puff 2 puff, Inhalation, 2 times daily, First dose on Thu09/23/23 at 2000, Phase II/On Unit, Rinse mouth with water after use to reduce aftertaste and incidence of candidiasis. Do not swallow. 2046 (Given - Provider: Eagle Delgadillo RN) 0818 (Given - Provider: Eagle Boles RN)203 (Given - Provider: Clayton Cespedes, CIRO) 0932 (Given - Provider: Daja Bucio, CIRO) pantoprazole (ProtoNix) EC tablet 40 mg 40 mg, Oral, Daily, First dose on Thu09/23/23 at 1415, Phase II/On Unit, Do not crush, chew, or split. 1526 (Given - Provider: Eagle Boles RN) 0817 (Given - Provider: Eagle Boles RN) 0936 (Given - Provider: Daja Bucio, RN) sertraline (Zoloft) tablet 50 mg 50 mg, Oral, Daily, First dose on Thu09/23/23 at 1415, Phase II/On Unit 1526 (Given - Provider: Eagle Boles RN) 0817 (Given - Provider: Eagle Boles RN) 0937 (Given - Provider: Daja Bucio RN) sodium chloride 0.9% (NS) flush 10 mL 10 mL, IntraVENous, Every 12 hours scheduled (2 times per day), First dose on Thu09/23/23 at 2100, Phase II/On Unit 2047 (Given - Provider: Eagle Delgadillo RN) 1026 (Given - Provider: Eagle Boles RN)203 (Given - Provider: Clayton Cespedes RN) 0937 (Given - Provider: Daja Bucio, CIRO) tamsulosin (Flomax) 24 hr capsule 0.4 mg 0.4 mg, Oral, Daily, First dose on Thu09/23/23 at 1415, Phase II/On Unit, Do not crush, chew, or split. 1525 (Given - Provider: Eagle Boles RN) 0817 (Given - Provider: Eagle Boles RN) 0937 (Given - Provider: Daja Bucio RN) Continuous Medication Order 09/23/2023 09/24/2023 09/25/2023 lactated Ringer's (LR) infusion (CANCELED) 50 mL/hr, IntraVENous, Continuous, Starting on Thu09/23/23 at 0715, Preprocedure, Upon admission to sameday - please start iv if patient does not have iv access. Use 500ml NS for patients on dialysis. 0748 (New Bag - Provider: Adriane Trejo RN)1019 (Continued by Anesthesia - Provider: Yovani Moser APRN - FURNACE OPERATOR AND TENDER)1213 (Stopped - Provider: Laura Cavanaugh APRN - FURNACE OPERATOR AND TENDER)1434 (Stopped - Provider: Eagle Boles RN) PRN Medication Order 09/23/2023 09/24/2023 09/25/2023 albuterol 108 (90 Base) MCG/ACT inhaler 2 puff 2 puff, Inhalation, Every 6 hours PRN, shortness of breath, Starting on 09/23/23 at 1407, Phase II/On Unit HYDROmorphone (Dilaudid) injection 0.5 mg (CANCELED) 0.5 mg, IntraVENous, Every 5 min PRN, severe pain (7-10), Starting on Thu09/23/23 at 1229, For 4 doses, Recovery (only), For Phase I. If Phase II oral narcotics have been administered in the last 60 minutes, do not administer IV narcotics unless specifically approved by provider. 1232 (Given - Provider: Caprice Orozco RN)1250 (Given - Provider: Caprice Orozco, CIRO)1311 (Given - Provider: Sterling Luna RN) HYDROmorphone (Dilaudid) injection 0.5 mg (CANCELED) 0.5 mg, IntraVENous, Every 4 hours PRN, severe pain (7-10), Starting on Thu09/23/23 at 2149, If oral and IV narcotics ordered, use oral first and only use IV if oral is ineffective or cannot take oral. Do Not give oral and IV within 1 hour of each other unless specifically ordered. 2255 (Given - Provider: Eagle Delgadillo RN) 0258 (Given - Provider: Eagle Delgadillo RN)0652 (Given - Provider: Eagle Delgadillo RN) HYDROmorphone (Dilaudid) injection 0.5 mg 0.5 mg, IntraVENous, Every 3 hours PRN, severe pain (7-10), Starting on Monica 09/24/23 at 1015, If oral and IV narcotics ordered, use oral first and only use IV if oral is ineffective or cannot take oral. Do Not give oral and IV within 1 hour of each other unless specifically ordered. 1025 (Given - Provider: Eagle Boles RN)1431 (Given - Provider: Eagle Boles RN)1720 (Given - Provider: Delonte Rand RN)2235 (Given - Provider: Clayton Cespedes RN) 0204 (Given - Provider: Clayton Cespedes RN)0916 (Given - Provider: Daja Bucio RN) lidocaine (Xylocaine) 1 % 50 mL, EPINEPHrine (Adrenalin) 1 mg in lactated Ringer's 1,000 mL injection (CANCELED) As needed, Starting on Thu09/23/23 at 1058, Intraprocedure 1058 (Given - Provider: Beto Gutierrez MD) lidocaine-EPINEPHrine (Xylocaine W/EPI) 1 %-[id number] injection (CANCELED) As needed, Starting on Thu09/23/23 at 1056, Intraprocedure 1056 (Given - Provider: Beto Gutierrez MD) LORazepam (Ativan) injection 0.5 mg (COMPLETED) 0.5 mg, IntraVENous, Once PRN, for anxiety or muscle spasm., Starting on Thu09/23/23 at 1229, For 1 dose, Recovery (only), For IV doses dilute dose with 1ml NS. 1244 (Given - Provider: Caprice Orozco RN) morphine injection 2 mg (CANCELED) 2 mg, IntraVENous, Every 3 hours PRN, severe pain (7-10), Starting on Thu09/23/23 at 1407, Phase II/On Unit, If oral and IV narcotics ordered, use oral first and only use IV if oral is ineffective or cannot take oral. Do Not give oral and IV within 1 hour of each other unless specifically ordered. 1435 (Given - Provider: Eagle Boles, CIRO)1840 (Given - Provider: Eagle Boles RN) naloxone (Narcan) injection 0.4 mg 0.4 mg, IntraVENous, Every 5 min PRN, opioid reversal, respiratory depression, Starting on Thu09/23/23 at 1415, +++ For RR <10, pinpoint pupils, over sedation for opioid reversal - MUST notify clinical transformation specialist provider immediately after first dose, may give IM or SQ if no IV access +++ ondansetron (Zofran) injection 4 mg(Linked Group 2) 4 mg, IntraVENous, Every 6 hours PRN, nausea, vomiting, Starting on Thu09/23/23 at 1407, Phase II/On Unit, 1st Line. Give IV if patient is unable to take orally. If inadequate response within 60 minutes, proceed to next-line agent or contact provider if no further options ordered. 0940 (Given - Provider: Daja Bucio RN) ondansetron ODT (Zofran-ODT) disintegrating tablet 4 mg(Linked Group 2) 4 mg, Oral, Every 8 hours PRN, nausea, vomiting, Starting on Thu09/23/23 at 1407, Phase II/On Unit, 1st Line. If inadequate response within 60 minutes, proceed to next-line agent or contact provider if no further options ordered. Patient should allow tablet to dissolve on tongue. Do not remove from blister pack until just before administering. 0940 (See Alternativ e - Provider: Daja Bucio RN) oxyCODONE (Roxicodone) immediate release tablet 10 mg (COMPLETED)(Linked Group 3) 10 mg, Oral, PRN, severe pain (7-10), Starting on Thu09/23/23 at 1229, For 1 dose, Recovery (only), PHASE II 1323 (Given - Provider: Sterling Luna RN) oxyCODONE (Roxicodone) immediate release tablet 10 mg 10 mg, Oral, Every 4 hours PRN, moderate pain (4-6), Starting on Monica 09/24/23 at 1922, Phase II/On Unit 2038 (Given - Provider: Clayton Cespedes RN) 0511 (Given - Provider: Clayton Cespedes RN)1309 (Given - Provider: Daja Bucio RN) oxyCODONE (Roxicodone) immediate release tablet 5 mg (CANCELED) 5 mg, Oral, Every 4 hours PRN, moderate pain (4-6), Starting on Thu09/23/23 at 1407, Phase II/On Unit 1720 (Given - Provider: Eagle Boles RN)2105 (Given - Provider: Eagle Delgadillo RN) 0139 (Given - Provider: Eagle Delgadillo RN)0533 (Given - Provider: Eagle Delgadillo RN)0917 (Given - Provider: Eagle Boles RN)1328 (Given - Provider: Eagle Boles RN) phenazopyridine (Pyridium) tablet 200 mg 200 mg, Oral, 3 times daily PRN, bladder spasms, Starting on Thu09/23/23 at 1407, Phase II/On Unit sodium chloride 0.9 % infusion 5-250 mL/hr, IntraVENous, PRN, if patient receiving piggyback infusions and maintenance fluids are not ordered OR KVO fluids to protect IV site / prevent frequent line interruptions/ long duration, Starting on Thu09/23/23 at 1407, Phase II/On Unit, For piggyback infusion, administer at same rate as piggyback for a total of 25 mL. Enter 25 mL into dose field and piggyback rate into rate field of order. If piggyback is infusing at a rate less than 100 mL/hr, enter 25 mL into dose field and 100 mL/hr into rate field of order. For KVO fluids, enter rate of 20 mL/hr or less into rate field of order. sodium chloride 0.9 % irrigation solution (CANCELED) As needed, Starting on Thu09/23/23 at 1120, Intraprocedure 1120 (Given - Provider: Beto Gutierrez MD) sodium chloride 0.9% (NS) flush 10 mL 10 mL, IntraVENous, PRN, line care, Starting on Thu09/23/23 at 1407, Phase II/On Unit, After every IV line use 0940 (Given - Provider: Daja Bucio RN) sterile water irrigation solution (CANCELED) As needed, Starting on Thu09/23/23 at 1056, Intraprocedure 1056 (Given - Provider: Beto Gutierrez MD - Comment: ON TECH TABLE) tiZANidine (Zanaflex) tablet 2 mg 2 mg, Oral, 2 times daily PRN, muscle spasms, Starting on Thu09/23/23 at 1407, Phase II/On Unit 0917 (Given - Provider: Eagle Boles RN) Linked Groups Order Group 1: famotidine (Pepcid) tablet 20 mg (COMPLETED)Jump to med 20 mg, Oral, Once, On Thu09/23/23 at 0715, For 1 dose, Preprocedure, IV or Oral Or famotidine (Pepcid) 20 mg in sodium chloride (PF) 0.9 % 10 mL injection (COMPLETED) 20 mg, IntraVENous, Administer over 2 Minutes, Once, On Thu09/23/23 at 0715, For 1 dose, Preprocedure, IV or Oral Group 2: ondansetron ODT (Zofran-ODT) disintegrating tablet 4 mgJump to med 4 mg, Oral, Every 8 hours PRN, nausea, vomiting, Starting on Thu09/23/23 at 1407, Phase II/On Unit, 1st Line. If inadequate response within 60 minutes, proceed to next-line agent or contact provider if no further options ordered. Patient should allow tablet to dissolve on tongue. Do not remove from blister pack until just before administering. Or ondansetron (Zofran) injection 4 mgJump to med 4 mg, IntraVENous, Every 6 hours PRN, nausea, vomiting, Starting on Thu09/23/23 at 1407, Phase II/On Unit, 1st Line. Give IV if patient is unable to take orally. If inadequate response within 60 minutes, proceed to next-line agent or contact provider if no further options ordered. Group 3: oxyCODONE (Roxicodone) immediate release tablet 5 mg (COMPLETED) 5 mg, Oral, PRN, moderate pain (4-6), Starting on Thu09/23/23 at 1229, For 1 dose, Recovery (only), PHASE II Or oxyCODONE (Roxicodone) immediate release tablet 10 mg (COMPLETED)Jump to med 10 mg, Oral, PRN, severe pain (7-10), Starting on Thu09/23/23 at 1229, For 1 dose, Recovery (only), PHASE II Scheduled Medication Order 09/30/2023 10/01/2023 10/02/2023 aspirin EC tablet 81 mg 81 mg, Oral, Daily, First dose on Thu10/01/23 at 1800, Do not crush, chew, or split. 1719 (Given - Provider: Miguel Riley RN) 0800 (Given - Provider: Vanessa Craft, CIRO) atorvastatin (Lipitor) tablet 80 mg 80 mg, Oral, Nightly, First dose on Thu10/01/23 at 2100, Indications: Hyperlipidemia 2115 (Given - Provider: Africa You, CIRO) bisacodyl (Dulcolax) suppository 10 mg 10 mg, Rectal, Daily, First dose on Thu10/01/23 at 1715 1802 (Given - Provider: Miguel Riley, CIRO) 0903 (Given - Provider: Vanessa Craft, CIRO) bumetanide (Bumex) tablet 1 mg 1 mg, Oral, 2 times daily, First dose (after last modification) on Thu10/01/23 at 1630 1719 (Given - Provider: Miguel Riley RN) 0800 (Given - Provider: Vanessa Craft, CIRO) buPROPion XL (Wellbutrin XL) 24 hr tablet 150 mg 150 mg, Oral, Daily, First dose on Thu24 at 1800, Do not crush, chew, or split. 1719 (Given - Provider: Miguel Riley RN) 0800 (Given - Provider: Vanessa Craft, CIRO) busPIRone (Buspar) tablet 10 mg 10 mg, Oral, 2 times daily, First dose (after last modification) on Monica 10/01/23 at 1630 1719 (Given - Provider: Miguel Riley RN) 0800 (Given - Provider: Vanessa Craft RN) calcium gluconate 2000 mg in 100 mL IVPB premix (COMPLETED) 2,000 mg, IntraVENous, at 50 mL/hr, Administer over 2 Hours, Once, On Thu10/02/23 at 0845, For 1 dose, premix bag 0903 (New Bag - Prov ider: Vanessa Craft RN)1103 (Stopped - Provider: Vanessa Craft RN) cholestyramine (Questran) packet 4 g (CANCELED) 4 g (1 packet), Oral, Daily, First dose on Monica 10/01/23 at 1800 1718 (Given - Provider: Miguel Riley RN) dicyclomine (Bentyl) capsule 10 mg 10 mg, Oral, 4 times daily, First dose on Monica 10/01/23 at 1700 1719 (Given - Provider: Miguel Riley RN)2115 (Given - Provider: Africa You RN) 0800 (Given - Provider: Vanessa Craft RN)1314 (Given - Provider: Vanessa Craft RN)1700 (Canceled Entry - Provider: Automatic Discharge Provider - Comment: Automatically canceled at discontinue of medication order) enoxaparin (Lovenox) syringe 40 mg 40 mg, SubCUTAneous, Every 24 hours scheduled (Daily), First dose on Monica 10/01/23 at 1505, Indication of Use: Prophylaxis-DVT/PE, Indications: Prophylaxis of Venous Thromboembolism 1801 (Given - Provider: Miguel Riley RN) 0759 (Given - Provider: Vanessa Craft RN) finasteride (Proscar) tablet 5 mg 5 mg, Oral, Daily, First dose on Monica 10/01/23 at 1800, Women should not handle crushed or broken finasteride tablets when they are or may potentially be , due to potential risk to the fetus. Do not crush, chew, or split., Indications: Benign Prostatic Hypertrophy 171 (Given - Provider: Miguel Riley RN) 0800 (Given - Provider: Vanessa Craft RN) fluticasone (Flonase) nasal spray 1 spray 1 spray, Each Nostril, Daily, First dose on Monica 10/01/23 at 1800, Shake gently. Before first use, prime pump (press 6 times until fine spray appears). After use, clean tip and replace cap. 171 (Not Given - Provider: Miguel Riley RN - Reason: Patient/family refused) 0800 (Not Given - Provider: Vanessa Craft RN - Reason: Patient/family refused) gabapentin (Neurontin) capsule 600 mg 600 mg, Oral, 3 times daily, First dose on Monica 10/01/23 at 1800 171 (Given - Provider: Miguel Riley RN) 0800 (Given - Provider: Vanessa Craft RN)1314 (Given - Provider: Vanessa Craft RN) HYDROmorphone (Dilaudid) injection 0.5 mg (COMPLETED) 0.5 mg, IntraVENous, Once, On Monica 10/01/23 at 1245, For 1 dose, If oral and IV narcotics ordered, use oral first and only use IV if oral is ineffective or cannot take oral. Do Not give oral and IV within 1 hour of each other unless specifically ordered. 1259 (Given - Provider: Melnia Plata RN) HYDROmorphone (Dilaudid) injection 1 mg (COMPLETED) 1 mg, IntraVENous, Once, On Monica 10/01/23 at 1045, For 1 dose, If oral and IV narcotics ordered, use oral first and only use IV if oral is ineffective or cannot take oral. Do Not give oral and IV within 1 hour of each other unless specifically ordered. 1116 (Given - Provider: Melina Plata RN) levothyroxine (Synthroid, Levoxyl) tablet 75 mcg 75 mcg, Oral, Daily before breakfast, First dose on Thu10/02/23 at 0600, Tube feeding (TF) interaction, obtain physician order to manage, recommend holding TF for 30 minutes before and after dose., Indications: Hypothyroidism 0559 (Given - Provid er: Africa You RN) magnesium citrate solution 296 mL (COMPLETED) 296 mL, Oral, Once, On Monica 10/01/23 at 1715, For 1 dose, Administer each dose with 8 oz (240 mL) of water. 180 (Given - Provider: Miguel Riley RN) methocarbamol (Robaxin) tablet 750 mg 750 mg, Oral, 4 times daily, First dose on Monica 10/01/23 at 1700 1719 (Given - Provider: Miguel Riley RN)2115 (Given - Provider: Africa You RN) 0800 (Given - Provider: Vanessa Craft RN)1314 (Given - Provider: Vanessa Craft RN)1700 (Canceled Entry - Provider: Automatic Discharge Provider - Comment: Automatically canceled at discontinue of medication order) mometasone-formoterol (Dulera 100) 100-5 MCG/ACT inhaler 2 puff 2 puff, Inhalation, 2 times daily, First dose on Monica 10/01/23 at 2000, Rinse mouth with water after use to reduce aftertaste and incidence of candidiasis. Do not swallow. 211 (Given - Provider: Africa You RN) 0759 (Given - Provider: Vanessa Craft RN) morphine injection 4 mg (COMPLETED) 4 mg, IntraVENous, Once, On Monica 10/01/23 at 0930, For 1 dose, If oral and IV narcotics ordered, use oral first and only use IV if oral is ineffective or cannot take oral. Do Not give oral and IV within 1 hour of each other unless specifically ordered. 1019 (Given - Provider: Melina Plata RN) ondansetron (Zofran) injection 4 mg (COMPLETED) 4 mg, IntraVENous, Once, On Monica 10/01/23 at 0930, For 1 dose 1134 (Given - Provider: Melina Plata RN - Comment: Patient had no nausea at time of order) pantoprazole (ProtoNix) EC tablet 40 mg 40 mg, Oral, Daily, First dose on Thu10/02/23 at 0900, Do not crush, chew, or split. 0800 (Given - Provid er: Vanessa Craft RN) polyethylene glycol (PEG) 3350 (Miralax) packet 17 g 17 g, Oral, Daily, First dose (after last modification) on Thu10/01/23 at 1505, 1st line for treatment of constipation - give scheduled if no bowel movement in past 24 hours. 2114 (Given - Provider: Africa You RN) 0800 (Given - Provider: Vanessa Craft RN) senna-docusate sodium (Senokot-S) 8.6-50 MG tablet 2 tablet 2 tablet, Oral, Daily, First dose on Monica 10/01/23 at 1505 2114 (Given - Provider: Africa You RN) 0800 (Given - Provider: Vanessa Craft RN) sertraline (Zoloft) tablet 50 mg 50 mg, Oral, Daily, First dose on Thu10/01/23 at 1800 1718 (Given - Provider: Miguel Riley RN) 0800 (Given - Provider: Vanessa Craft RN) sodium chloride 0.9 % bolus 1,000 mL (COMPLETED) 1,000 mL, IntraVENous, at 1,000 mL/hr, Administer over 1 Hours, Once, On Thu10/01/23 at 0930, For 1 dose 1020 (New Bag - Provider: Melina Plata RN)1120 (Stopped - Provider: Melina Plata RN) tamsulosin (Flomax) 24 hr capsule 0.4 mg 0.4 mg, Oral, Daily, First dose on Thu10/01/23 at 1800, Do not crush, chew, or split. 1718 (Given - Provider: Miguel Riley RN) 0800 (Given - Provider: Vanessa Craft RN) therapeutic multivitamin-minerals (Theragran-M) tablet 1 tablet, Oral, Daily, First dose on Thu10/02/23 at 0900 0800 (Given - Provid er: Vanessa Craft RN) Continuous Medication Order 09/30/2023 10/01/2023 10/02/2023 sodium chloride 0.9 % infusion (CANCELED) 125 mL/hr, IntraVENous, Continuous, Starting on Thu10/01/23 at 0930 1130 (New Bag - Provider: Melina Plata RN)1556 (New Bag - Provider: Miguel Riley RN)1809 (Rate/Dose Verify - Provider: Miguel Riley RN)2344 (New Bag - Provider: Africa You RN) 1141 (Stopped - Provider: Vanessa Craft RN) PRN Medication Order 09/30/2023 10/01/2023 10/02/2023 acetaminophen (Tylenol) suppository 650 mg(Linked Group 1) 650 mg, Rectal, Every 6 hours PRN, mild pain (1-3), fever, For temp greater than 100.4 F (38 C), Starting on Monica 10/01/23 at 1446, Administer if oral route cannot be used. Maximum dose of acetaminophen is 4000 mg from all sources in 24 hours. acetaminophen (Tylenol) tablet 650 mg(Linked Group 1) 650 mg, Oral, Every 6 hours PRN, mild pain (1-3), fever, For temp greater than 100.4 F (38 C), Starting on Monica 10/01/23 at 1446, Maximum dose of acetaminophen is 4000 mg from all sources in 24 hours. albuterol 108 (90 Base) MCG/ACT inhaler 2 puff 2 puff, Inhalation, Every 6 hours PRN, wheezing, shortness of breath, Starting on Monica 10/01/23 at 1618 morphine injection 2 mg(Linked Group 2) 2 mg, IntraVENous, Every 4 hours PRN, moderate pain (4-6), Starting on Thu10/02/23 at 0925, If oral and IV narcotics ordered, use oral first and only use IV if oral is ineffective or cannot take oral. Do Not give oral and IV within 1 hour of each other unless specifically ordered. morphine injection 4 mg (CANCELED) 4 mg, IntraVENous, Every 4 hours PRN, severe pain (7-10), Starting on Monica 10/01/23 at 1701, If oral and IV narcotics ordered, use oral first and only use IV if oral is ineffective or cannot take oral. Do Not give oral and IV within 1 hour of each other unless specifically ordered. 1808 (Given - Provider: Miguel Riley RN)2352 (Given - Provider: Africa You RN) 0759 (Given - Provider: Vanessa Craft RN) morphine injection 4 mg(Linked Group 2) 4 mg, IntraVENous, Every 3 hours PRN, severe pain (7-10), Starting on Thu10/02/23 at 0925, If oral and IV narcotics ordered, use oral first and only use IV if oral is ineffective or cannot take oral. Do Not give oral and IV within 1 hour of each other unless specifically ordered. naloxone (Narcan) injection 0.4 mg 0.4 mg, IntraVENous, Every 5 min PRN, opioid reversal, respiratory depression, Starting on Monica 10/01/23 at 1622, +++ For RR <10, pinpoint pupils, over sedation for opioid reversal - MUST notify clinical transformation specialist provider immediately after first dose, may give IM or SQ if no IV access +++ ondansetron (Zofran) injection 4 mg(Linked Group 3) 4 mg, IntraVENous, Every 6 hours PRN, nausea, vomiting, Starting on Monica 10/01/23 at 1446, 1st Line. Give IV if patient is unable to take orally. If inadequate response within 60 minutes, proceed to next-line agent or contact provider if no further options ordered. ondansetron ODT (Zofran-ODT) disintegrating tablet 4 mg(Linked Group 3) 4 mg, Oral, Every 8 hours PRN, nausea, vomiting, Starting on Monica 10/01/23 at 1446, 1st Line. If inadequate response within 60 minutes, proceed to next-line agent or contact provider if no further options ordered. Patient should allow tablet to dissolve on tongue. Do not remove from blister pack until just before administering. oxyCODONE-acetaminophen (Percocet) 5-325 MG per tablet 1 tablet 1 tablet, Oral, Every 4 hours PRN, severe pain (7-10), moderate pain (4-6), Starting on Thu10/02/23 at 0923, Maximum dose of acetaminophen is 4000 mg from all sources in 24 hours. 1314 (Given - Provid er: Vanessa Craft RN) Linked Groups Order Group 1: acetaminophen (Tylenol) tablet 650 mgJump to med 650 mg, Oral, Every 6 hours PRN, mild pain (1-3), fever, For temp greater than 100.4 F (38 C), Starting on Monica 10/01/23 at 1446, Maximum dose of acetaminophen is 4000 mg from all sources in 24 hours. Or acetaminophen (Tylenol) suppository 650 mgJump to med 650 mg, Rectal, Every 6 hours PRN, mild pain (1-3), fever, For temp greater than 100.4 F (38 C), Starting on Monica 10/01/23 at 1446, Administer if oral route cannot be used. Maximum dose of acetaminophen is 4000 mg from all sources in 24 hours. Group 2: morphine injection 2 mgJump to med 2 mg, IntraVENous, Every 4 hours PRN, moderate pain (4-6), Starting on Thu10/02/23 at 0925, If oral and IV narcotics ordered, use oral first and only use IV if oral is ineffective or cannot take oral. Do Not give oral and IV within 1 hour of each other unless specifically ordered. Or morphine injection 4 mgJump to med 4 mg, IntraVENous, Every 3 hours PRN, severe pain (7-10), Starting on Thu10/02/23 at 0925, If oral and IV narcotics ordered, use oral first and only use IV if oral is ineffective or cannot take oral. Do Not give oral and IV within 1 hour of each other unless specifically ordered. Group 3: ondansetron ODT (Zofran-ODT) disintegrating tablet 4 mgJump to med 4 mg, Oral, Every 8 hours PRN, nausea, vomiting, Starting on Monica 10/01/23 at 1446, 1st Line. If inadequate response within 60 minutes, proceed to next-line agent or contact provider if no further options ordered. Patient should allow tablet to dissolve on tongue. Do not remove from blister pack until just before administering. Or ondansetron (Zofran) injection 4 mgJump to med 4 mg, IntraVENous, Every 6 hours PRN, nausea, vomiting, Starting on Monica 10/01/23 at 1446, 1st Line. Give IV if patient is unable to take orally. If inadequate response within 60 minutes, proceed to next-line agent or contact provider if no further options ordered. Scheduled Medication Order 06/08/2022 06/09/2022 06/10/2022 doxycycline (Vibramycin) capsule 100 mg (COMPLETED) 100 mg, Oral, Once, On Thu06/10/22 at 0110, For 1 dose, Take with at least 8 ounces (large glass) of water, do not lie down for 30 minutes after, Suspected Indication (Select all that apply): Skin and Soft Tissue Infection 0130 (Given - Provid er: Crystal Correia RN) methocarbamol (Robaxin) injection 1,000 mg (COMPLETED) 1,000 mg, IntraVENous, Administer over 5 Minutes, Once, On Thu06/10/22 at 0110, For 1 dose, Maximum dose: 3 g/day for no more than 3 consecutive days 0122 (Given - Provid er: Crystal Correia RN) morphine sulfate (PF) injection 4 mg (COMPLETED) 4 mg, IntraMUSCular, Once, On Thu06/09/22 at 2320, For 1 dose, If oral and IV narcotics ordered, use oral first and only use IV if oral is ineffective or cannot take oral. Do Not give oral and IV within 1 hour of each other unless specifically ordered. 0042 (Given - Provid er: Crystal Correia RN) Scheduled Medication Order 07/01/2022 07/02/2022 07/03/2022 acetaminophen (Tylenol) tablet 1,000 mg (COMPLETED) 1,000 mg, Oral, Once, On Monica 07/03/22 at 1645, For 1 dose, Maximum dose of acetaminophen is 4000 mg from all sources in 24 hours. 165 (Given - Provid er: Juanita David RN) dexAMETHasone (PF) (Decadron) injection 10 mg (COMPLETED) 10 mg, IntraVENous, Once, On Monica 07/03/22 at 1750, For 1 dose 181 (Given - Provid er: Yovani Good RN) ketorolac (Toradol) injection 15 mg (COMPLETED) 15 mg, IntraVENous, Once, On Monica 07/03/22 at 1750, For 1 dose 181 (Given - Provid er: Yovani Good RN) lidocaine (Xylocaine) 2 % mouth solution 15 mL (COMPLETED) 15 mL, Mouth/Throat, Once, On Monica 07/03/22 at 1650, For 1 dose 1700 (Given - Provid er: Juanita David RN) ondansetron (Zofran) injection 4 mg (COMPLETED) 4 mg, IntraVENous, Once, On Monica 07/03/22 at 1820, For 1 dose 183 (Given - Provid er: Yovani Good RN) sodium chloride 0.9 % bolus 1,000 mL (COMPLETED) 1,000 mL, IntraVENous, at 1,000 mL/hr, Administer over 1 Hours, Once, On Monica 07/03/22 at 1645, For 1 dose 1704 (New Bag - Prov ider: Juanita David RN)1804 (Stopped - Provider: Yovani Good, RN) Scheduled Medication Order 05/26/2024 05/27/2024 05/28/2024 acetaminophen (Tylenol) tablet 1,000 mg (COMPLETED) 1,000 mg, Oral, Once, On Thu05/27/24 at 1130, For 1 dose, Preprocedure, Administer 60 minutes prior to surgery. 1139 (Given - Provider: Cat Agarwal, CIRO) acetaminophen (Tylenol) tablet 650 mg 650 mg, Oral, Every 6 hours, First dose on Thu05/27/24 at 1800, Phase II/On Unit 1858 (Given - Provider: Eagle Boles, CIRO) 0000 (Not Given - Provider: Eli Peña RN - Reason: Other - Comment: percocet given)0600 (Not Given - Provider: Eli Peña RN - Reason: Other - Comment: given percocet)1200 (Canceled Entry - Provider: Automatic Discharge Provider - Comment: Automatically canceled at discontinue of medication order) aspirin EC tablet 81 mg 81 mg, Oral, 2 times daily, First dose on Thu05/27/24 at 2100, Phase II/On Unit, Do not crush, chew, or split. 2014 (Given - Provider: Eli Peña RN) 09 (Given - Provider: Eagle Boles, CIRO) atorvastatin (Lipitor) tablet 80 mg 80 mg, Oral, Nightly, First dose on Thu05/27/24 at 2100, Indications: Hyperlipidemia 2015 (Given - Provider: Eli Peña RN) buPROPion XL (Wellbutrin XL) 24 hr tablet 150 mg 150 mg, Oral, Daily, First dose on Thu05/27/24 at 1815, Do not crush, chew, or split. 2014 (Given - Provider: Eli Peña RN) 09 (Given - Provider: Eagle Boles, CIRO) busPIRone (Buspar) tablet 10 mg 10 mg, Oral, 2 times daily, First dose on Thu05/27/24 at 2100 2014 (Given - Provider: Eli Peña RN) 09 (Given - Provider: Eagle Boles, RN) ceFAZolin (Ancef) 2,000 mg in sodium chloride 0.9 % 100 mL IVPB (COMPLETED) 2,000 mg, IntraVENous, at 200 mL/hr, Administer over 30 Minutes, Every 8 hours, First dose on Thu05/27/24 at 2200, For 2 doses, Phase II/On Unit, Mini-Bag Plus bag, Suspected Indication (Select all that apply): Surgical Prophylaxis 2322 (New Bag - Provider: Eli Peña RN)2352 (Stopped - Provider: Eli Peña RN) 0510 (New Bag - Provider: Eli Peña RN)0540 (Stopped - Provider: Eli Peña RN) ceFAZolin in dextrose 4% (Ancef) IVPB 2,000 mg (COMPLETED) 2,000 mg, IntraVENous, Administer over 30 Minutes, Group Marketing Vp to O.R., On Thu05/27/24 at 1130, For 1 dose, Preprocedure, Administer within 1 hour prior to incision. Recommend to repeat in 3-4 hours after initial dose if still intra-op. premix bag, Suspected Indication (Select all that apply): Surgical Prophylaxis 1352 (Given - Provider: Demetri Agee APRN - FURNACE OPERATOR AND TENDER) dexAMETHasone (PF) (Decadron) injection 8 mg (COMPLETED) 8 mg, IntraVENous, Every 6 hours, First dose on Thu05/27/24 at 2200, For 2 doses, Phase II/On Unit 232 (Given - Provider: Eli Peña RN) 0509 (Given - Provider: Eli Peña RN) dicyclomine (Bentyl) capsule 10 mg 10 mg, Oral, 4 times daily, First dose on Thu05/27/24 at 2100 2014 (Given - Provider: Eli Peña RN) 0905 (Given - Provider: Eagle Boles RN)1300 (Canceled Entry - Provider: Automatic Discharge Provider - Comment: Automatically canceled at discontinue of medication order) famotidine (Pepcid) tablet 20 mg (COMPLETED)(Linked Group 1) 20 mg, Oral, Once, On Thu05/27/24 at 1130, For 1 dose, Preprocedure, IV or Oral 1139 (Given - Provider: Cat Agarwal, CIRO) famotidine (Pepcid) tablet 20 mg 20 mg, Oral, 2 times daily, First dose on Thu05/27/24 at 2100, Phase II/On Unit 2014 (Given - Provider: Eli Peña RN) 903 (Given - Provider: Eagle Boles, RN) finasteride (Proscar) tablet 5 mg 5 mg, Oral, Daily, First dose on Thu05/27/24 at 1900, Women should not handle crushed or broken finasteride tablets when they are or may potentially be , due to potential risk to the fetus. Do not crush, chew, or split., Indications: Benign Prostatic Hypertrophy 2014 (Given - Provider: Eli Peña RN) 904 (Given - Provider: Eagle Boles, RN) gabapentin (Neurontin) capsule 600 mg 600 mg, Oral, 3 times daily, First dose on Thu05/27/24 at 2100 2014 (Given - Provider: Eli Peña RN) 903 (Given - Provider: Eagle Boles, RN) levothyroxine (Synthroid, Levoxyl) tablet 75 mcg 75 mcg, Oral, Daily before breakfast, First dose on Thu05/28/24 at 0600, Tube feeding (TF) interaction, obtain physician order to manage, recommend holding TF for 30 minutes before and after dose., Indications: Hypothyroidism 0509 (Given - Provid er: Eli Peña RN) mometasone-formoterol (Dulera 100) 100-5 MCG/ACT inhaler 2 puff 2 puff, Inhalation, 2 times daily, First dose on Thu05/27/24 at 2000, Rinse mouth with water after use to reduce aftertaste and incidence of candidiasis. Do not swallow. 2014 (Given - Provider: Eli Peña RN) 904 (Given - Provider: Eagle Boles, RN) Nozin Nasal Channel Program Manager Popswab 2 Swab (COMPLETED) 2 Swab (1 Package), Topical, Once, On Thu05/27/24 at 1130, For 1 dose, Preprocedure, Flip ampule around in paper sleeve to expose swab tip. Shake well. With sleeve on ampule, crush at dot to pop. Squeeze to wet swab tip. Swab around nostril rims 8 times in each direction. Squeeze to rewet swab tip and repeat. Repeat for other nostril. Caution : Do not extend in nose beyond swab tip. Appy to skin only. Discard after use. 1131 (Given - Provider: Cat Agarwal RN) pantoprazole (ProtoNix) EC tablet 40 mg 40 mg, Oral, Daily, First dose on Thu05/27/24 at 1815, Do not crush, chew, or split. 185 (Given - Provider: Eagle Boles RN) 09 (Given - Provider: Eagle Boles RN) ropivacaine (Naropin) 5 MG/ML 15 mL, EPINEPHrine (Adrenalin) 30 MG/30ML 0.125 mL in sodium chloride (PF) 0.9 % 15 mL syringe (COMPLETED) 1 Syringe, Intra-artICUlar, Once, On Thu05/27/24 at 1230, For 1 dose, Intraprocedure 1439 (Given - Provider: Ciara Baker RN - Comment: RIGHT HIP) ropivacaine (Naropin) 5 MG/ML 15 mL, EPINEPHrine (Adrenalin) 30 MG/30ML 0.125 mL in sodium chloride (PF) 0.9 % 15 mL syringe (COMPLETED) 1 Syringe, Intra-artICUlar, Once, On Thu05/27/24 at 1230, For 1 dose, Intraprocedure 1438 (Given - Provider: Ciara Baker RN - Comment: RIGHT HIP) sertraline (Zoloft) tablet 50 mg 50 mg, Oral, Daily, First dose on Thu05/28/24 at 0900 0905 (Given - Provid er: Eagle Boles RN) sodium chloride 0.9% (NS) flush 10 mL 10 mL, IntraVENous, Every 12 hours scheduled (2 times per day), First dose on Thu05/27/24 at 2100, Phase II/On Unit 2100 (Given - Provider: Eli Peña RN) 0900 (Given - Provider: Eagle Boles RN) tamsulosin (Flomax) 24 hr capsule 0.4 mg 0.4 mg, Oral, Daily, First dose on Thu05/27/24 at 1815, Do not crush, chew, or split. 185 (Given - Provider: Eagle Boles RN) 903 (Given - Provider: Eagle Boles RN) Continuous Medication Order 05/26/2024 05/27/2024 05/28/2024 lactated Ringer's (LR) infusion (CANCELED) 50 mL/hr, IntraVENous, Continuous, Starting on Thu05/27/24 at 1130, Preprocedure, Upon admission to sameday - please start iv if patient does not have iv access. Use 500ml NS for patients on dialysis. 1131 (New Bag - Provider: Alicia Agarwal, CIRO)1325 (Continued by Anesthesia - Provider: Demetri Agee, PLANT OPERATOR CONTROL ROOM OPERATOR - FURNACE OPERATOR AND TENDER)1624 (Stopped - Provider: Beto Sparks, PLANT OPERATOR CONTROL ROOM OPERATOR - FURNACE OPERATOR AND TENDER) sodium chloride 0.9 % infusion 125 mL/hr, IntraVENous, Continuous, Starting on Thu05/27/24 at 1800, Phase II/On Unit 2100 (Stopped - Provider: Eli Peña, CIRO) PRN Medication Order 05/26/2024 05/27/2024 05/28/2024 albuterol 108 (90 Base) MCG/ACT inhaler 2 puff 2 puff, Inhalation, Every 6 hours PRN, shortness of breath, wheezing, Starting on Thu05/27/24 at 1807 ALPRAZolam (Xanax) disintegrating tablet 0.25 mg (COMPLETED) 0.25 mg, Oral, Once PRN, anxiety, Starting on Thu05/27/24 at 1127, For 1 dose, Preprocedure, Please do not administer prior to obtaining consent and/or history and physical. 1139 (Given - Provider: Cat Agarwal, CIRO) ALPRAZolam (Xanax) tablet 1 mg 1 mg, Oral, Nightly PRN, anxiety, Starting on Thu05/27/24 at 2307 2322 (Given - Provider: Eli Peña, CIRO) bisacodyl (Dulcolax) EC tablet 5 mg 5 mg, Oral, Daily PRN, constipation, Starting on Thu05/27/24 at 1745, Phase II/On Unit, 1st line for treatment of constipation - give scheduled if no bowel movement in past 24 hours. Do not crush, chew, or split. diphenhydrAMINE (BENADryl) injection 25 mg(Linked Group 2) 25 mg, IntraVENous, Every 6 hours PRN, itching, Starting on Thu05/27/24 at 1745, Phase II/On Unit, Administer if oral route cannot be used. diphenhydrAMINE (BENADryl) tablet/capsule 25 mg(Linked Group 2) 25 mg, Oral, Every 6 hours PRN, itching, Starting on Thu05/27/24 at 1745, Phase II/On Unit HYDROmorphone (Dilaudid) injection 0.25 mg(Linked Group 3) 0.25 mg, IntraVENous, Every 3 hours PRN, moderate pain (4-6), Starting on Thu05/27/24 at 1745, Phase II/On Unit, If oral and IV narcotics ordered, use oral first and only use IV if oral is ineffective or cannot take oral. Do Not give oral and IV within 1 hour of each other unless specifically ordered. 2014 (See Alternative - Provider: Eli Peña RN) 215 (See Alternative - Provider: Eli Peña RN) HYDROmorphone (Dilaudid) injection 0.5 mg(Linked Group 3) 0.5 mg, IntraVENous, Every 3 hours PRN, severe pain (7-10), Starting on Thu05/27/24 at 1745, Phase II/On Unit, If oral and IV narcotics ordered, use oral first and only use IV if oral is ineffective or cannot take oral. Do Not give oral and IV within 1 hour of each other unless specifically ordered. 2014 (Given - Provider: Eli Peña RN) 215 (Given - Provider: Eli Peña RN) HYDROmorphone (Dilaudid) injection 0.5 mg (COMPLETED) 0.5 mg, IntraVENous, Every 5 min PRN, severe pain (7-10), Starting on Thu05/27/24 at 1610, For 4 doses, Recovery (only), For Phase I. If Phase II oral narcotics have been administered in the last 60 minutes, do not administer IV narcotics unless specifically approved by provider. 1622 (Given - Provider: Evelin Leal RN)1627 (Given - Provider: Evelin Leal RN)1642 (Given - Provider: Evelin Leal RN)1647 (Given - Provider: Evelin Leal RN) magnesium citrate solution 297 mL 297 mL, Oral, Once PRN, constipation, constipation, Starting on Thu05/27/24 at 1745, For 1 dose, Phase II/On Unit, 2nd line for treatment of constipation - give scheduled (in addition to 1st line agent) if no bowel movement in past 48 hours. If no bowel movement within 3 hours of magnesium citrate administration, contact provider for further instructions. naloxone (Narcan) injection 0.4 mg 0.4 mg, IntraVENous, PRN, opioid reversal, Starting on Thu05/27/24 at 1745, Phase II/On Unit, For oversedation/difficult to rouse, pinpoint pupils, RR < 8; notify primary team clinical transformation specialist if used ondansetron (Zofran) injection 4 mg(Linked Group 4) 4 mg, IntraVENous, Every 6 hours PRN, nausea, vomiting, Starting on Thu05/27/24 at 1745, Phase II/On Unit, 1st Line. Give IV if patient is unable to take orally. If inadequate response within 60 minutes, proceed to next-line agent or contact provider if no further options ordered. 2023 (Given - Provider: Eli Peña RN) 515 (Given - Provider: Eli Peña RN) ondansetron ODT (Zofran-ODT) disintegrating tablet 4 mg(Linked Group 4) 4 mg, Oral, Every 8 hours PRN, nausea, vomiting, Starting on Thu05/27/24 at 1745, Phase II/On Unit, 1st Line. If inadequate response within 60 minutes, proceed to next-line agent or contact provider if no further options ordered. Patient should allow tablet to dissolve on tongue. Do not remove from blister pack until just before administering. 2023 (See Alternative - Provider: Eli Peña RN) 515 (See Alternative - Provider: Eli Peña RN) oxyCODONE (Roxicodone) immediate release tablet 10 mg (COMPLETED)(Linked Group 5) 10 mg, Oral, Every 4 hours PRN, severe pain (7-10), Starting on Thu05/27/24 at 1610, For 1 dose, Recovery (only), PHASE II 170 (Given - Provider: Evelin Leal RN) oxyCODONE-acetaminophen (Percocet) 5-325 MG per tablet 1 tablet 1 tablet, Oral, Every 4 hours PRN, moderate pain (4-6), Starting on Thu05/27/24 at 1745, Phase II/On Unit, Maximum dose of acetaminophen is 4000 mg from all sources in 24 hours. oxyCODONE-acetaminophen (Percocet) 5-325 MG per tablet 2 tablet 2 tablet, Oral, Every 4 hours PRN, severe pain (7-10), Starting on Thu05/27/24 at 1745, Phase II/On Unit, Maximum dose of acetaminophen is 4000 mg from all sources in 24 hours. 2322 (Given - Provider: Eli Peña, CIRO) 0509 (Given - Provider: Eli Peña RN)0904 (Given - Provider: Eagle Boles RN) sodium chloride 0.9 % infusion 5-250 mL/hr, IntraVENous, PRN, if patient receiving piggyback infusions and maintenance fluids are not ordered OR KVO fluids to protect IV site / prevent frequent line interruptions/ long duration, Starting on Thu05/27/24 at 1745, Phase II/On Unit, For piggyback infusion, administer at same rate as piggyback for a total of 25 mL. Enter 25 mL into dose field and piggyback rate into rate field of order. If piggyback is infusing at a rate less than 100 mL/hr, enter 25 mL into dose field and 100 mL/hr into rate field of order. For KVO fluids, enter rate of 20 mL/hr or less into rate field of order. sodium chloride 0.9 % irrigation solution (CANCELED) As needed, Starting on Thu05/27/24 at 1414, Intraprocedure 1413 (Given - Provider: Antony Anderson MD)1414 (Given - Provider: Antony Anderson MD - Comment: TINTED WITH BETADINE) sodium chloride 0.9% (NS) flush 10 mL 10 mL, IntraVENous, PRN, line care, Starting on Thu05/27/24 at 1745, Phase II/On Unit, After every IV line use sterile water irrigation solution (CANCELED) As needed, Starting on Thu05/27/24 at 1415, Intraprocedure 1415 (Given - Provider: Antony Anderson MD - Comment: ON TECH TABLE) Linked Groups Order Group 1: famotidine (Pepcid) tablet 20 mg (COMPLETED)Jump to med 20 mg, Oral, Once, On Thu05/27/24 at 1130, For 1 dose, Preprocedure, IV or Oral Or famotidine (Pepcid) 20 mg in sodium chloride (PF) 0.9 % 10 mL injection (COMPLETED) 20 mg, IntraVENous, Administer over 2 Minutes, Once, On Thu05/27/24 at 1130, For 1 dose, Preprocedure, IV or Oral Group 2: diphenhydrAMINE (BENADryl) tablet/capsule 25 mgJump to med 25 mg, Oral, Every 6 hours PRN, itching, Starting on Thu05/27/24 at 1745, Phase II/On Unit Or diphenhydrAMINE (BENADryl) injection 25 mgJump to med 25 mg, IntraVENous, Every 6 hours PRN, itching, Starting on Thu05/27/24 at 1745, Phase II/On Unit, Administer if oral route cannot be used. Group 3: HYDROmorphone (Dilaudid) injection 0.25 mgJump to med 0.25 mg, IntraVENous, Every 3 hours PRN, moderate pain (4-6), Starting on Thu05/27/24 at 1745, Phase II/On Unit, If oral and IV narcotics ordered, use oral first and only use IV if oral is ineffective or cannot take oral. Do Not give oral and IV within 1 hour of each other unless specifically ordered. Or HYDROmorphone (Dilaudid) injection 0.5 mgJump to med 0.5 mg, IntraVENous, Every 3 hours PRN, severe pain (7-10), Starting on Thu05/27/24 at 1745, Phase II/On Unit, If oral and IV narcotics ordered, use oral first and only use IV if oral is ineffective or cannot take oral. Do Not give oral and IV within 1 hour of each other unless specifically ordered. Group 4: ondansetron ODT (Zofran-ODT) disintegrating tablet 4 mgJump to med 4 mg, Oral, Every 8 hours PRN, nausea, vomiting, Starting on Thu05/27/24 at 1745, Phase II/On Unit, 1st Line. If inadequate response within 60 minutes, proceed to next-line agent or contact provider if no further options ordered. Patient should allow tablet to dissolve on tongue. Do not remove from blister pack until just before administering. Or ondansetron (Zofran) injection 4 mgJump to med 4 mg, IntraVENous, Every 6 hours PRN, nausea, vomiting, Starting on Thu05/27/24 at 1745, Phase II/On Unit, 1st Line. Give IV if patient is unable to take orally. If inadequate response within 60 minutes, proceed to next-line agent or contact provider if no further options ordered. Group 5: oxyCODONE (Roxicodone) immediate release tablet 5 mg (COMPLETED) 5 mg, Oral, Every 4 hours PRN, moderate pain (4-6), Starting on Thu05/27/24 at 1610, For 1 dose, Recovery (only), PHASE II Or oxyCODONE (Roxicodone) immediate release tablet 10 mg (COMPLETED)Jump to med 10 mg, Oral, Every 4 hours PRN, severe pain (7-10), Starting on Thu05/27/24 at 1610, For 1 dose, Recovery (only), PHASE II Scheduled Medication Order 06/16/2024 06/17/2024 06/18/2024 HYDROcodone-acetaminophen ([place]) 5-325 MG per tablet 1 tablet (COMPLETED) 1 tablet, Oral, Once, On 06/18/24 at 1850, For 1 dose, Maximum dose of acetaminophen is 4000 mg from all sources in 24 hours. 1851 (Given - Provid er: Gayla Cruz LPN) lidocaine-EPINEPHrine (Xylocaine W/EPI) 1 %-[id number] injection 10 mL (COMPLETED) 10 mL, Infiltration, Once, On 06/18/24 at 1845, For 1 dose 1845 (Given by Other - Provider: Zhane Cramer RN - Reason: Administered by Other (Comment Required) - Comment: YOU Mario) Scheduled Medication Order 06/28/2024 06/29/2024 06/30/2024 aspirin EC tablet 81 mg 81 mg, Oral, Daily, First dose on Thu06/24/24 at 0900, Do not crush, chew, or split. 0829 (Given - Provider: Aspen Cannon LPN) 0840 (Given - Provider: Rowena Acosta, CIRO) 0931 (Given - Provider: Rowena Acosta RN) atorvastatin (Lipitor) tablet 80 mg 80 mg, Oral, Nightly, First dose on Monica 06/23/24 at 2100, Indications: Hyperlipidemia 2111 (Given - Provider: Ernesto Wilkinson, CIRO) 2108 (Given - Provider: Ernesto Wilkinson, CIRO) buPROPion XL (Wellbutrin XL) 24 hr tablet 150 mg 150 mg, Oral, Daily, First dose on Thu06/24/24 at 0900, Do not crush, chew, or split. 0829 (Given - Provider: Aspen Cannon LPN) 0840 (Given - Provider: Rowena Acosta RN) 0930 (Given - Provider: Rowena Acosta, CIRO) busPIRone (Buspar) tablet 10 mg 10 mg, Oral, 2 times daily, First dose on Monica 06/23/24 at 2100 0829 (Given - Provider: Aspen Cannon LPN)2111 (Given - Provider: Ernesto Wilkinson, CIRO) 0840 (Given - Provider: Rowena Acosta, CIRO)2107 (Given - Provider: Ernesto Wilkinson, CIRO) 0930 (Given - Provider: Rowena Acosta RN) collagenase 250 UNIT/GM ointment Topical, Daily, First dose on 06/25/24 at 0900, Apply to yellow tissues to right hip wound , after cleansing with hibiclens then apply alginate, cover with DSD , tape. 0830 (Given - Provider: Aspen Cannon LPN) 1047 (Given - Provider: Rowena Acosta, CIRO) 0931 (Given - Provider: Rowena Acosta RN) DAPTOmycin (Cubicin) 750 mg in sodium chloride 0.9 % 50 mL IVPB (CANCELED) 750 mg, IntraVENous, at 100 mL/hr, Administer over 30 Minutes, Every 24 hours, First dose on Thu06/24/24 at 1000, Incompatible with dextrose containing solutions. Use Adjusted Body Weight to dose daptomycin if BMI is 30 or greater., Does patient have decreased suseptibility to vancomycin such as S. aureus ABDIEL >= 2 (except for UTI, ABDIEL of 2 is OK due to renal elimination), S. epidermidis ABDIEL >= 4, or Enterococcus ABDIEL >= 4? Yes, Suspected Indication (Select all that apply): Other, Intra-Abdominal Infection, Other Abx Indication: likely mrsa and don't wish to risk vanco side effects 1203 (New Bag - Provider: Aspen Cannon LPN)1233 (Stopped - Provider: Aspen Cannon LPN) 1047 (New Bag - Provider: Rowena Acosta RN)1117 (Stopped - Provider: Rowena Acosta RN) docusate sodium (Colace) capsule 100 mg 100 mg, Oral, 2 times daily, First dose on Thu06/23/24 at 2100, Do not crush or break. 0829 (Given - Provider: Aspen Cannon LPN)2111 (Given - Provider: Ernesto Wilkinson RN) 0840 (Given - Provider: Rowena Acosta RN)2107 (Given - Provider: Ernesto Wilkinson RN) 0930 (Given - Provider: Rowena Acosta RN) enoxaparin (Lovenox) syringe 40 mg 40 mg, SubCUTAneous, Every 24 hours scheduled (Daily), First dose on Thu06/23/24 at 1915, Indication of Use: Prophylaxis-DVT/PE, Indications: Prophylaxis of Venous Thromboembolism 0829 (Given - Provider: Aspen Cannon LPN) 0839 (Given - Provider: Rowena Acosta RN) 0931 (Given - Provider: Rowena Acosta RN) ertapenem (INVanz) 1,000 mg in sodium chloride 0.9 % 50 mL IVPB Mini-Bag Plus (CANCELED) 1,000 mg, IntraVENous, at 100 mL/hr, Administer over 30 Minutes, Every 24 hours, First dose on Thu06/26/24 at 1000, Mini-Bag Plus bag, Suspected Indication (Select all that apply): Surgical Site Infection 1053 (New Bag - Provider: Aspen Cannon LPN)1123 (Stopped - Provider: Aspen Cannon LPN) 1220 (New Bag - Provider: Rowena Acosta RN)1250 (Stopped - Provider: Rowena Acosta RN) finasteride (Proscar) tablet 5 mg 5 mg, Oral, Daily, First dose on Thu06/24/24 at 0900, Women should not handle crushed or broken finasteride tablets when they are or may potentially be , due to potential risk to the fetus. Do not crush, chew, or split., Indications: Benign Prostatic Hypertrophy 0829 (Given - Provider: Aspen Cannon LPN) 0840 (Given - Provider: Rowena Acosta RN) 0930 (Given - Provider: Rowena Acosta RN) gabapentin (Neurontin) capsule 600 mg 600 mg, Oral, 3 times daily, First dose on Thu06/23/24 at 2100 0829 (Given - Provider: Aspen Cannon LPN)1451 (Given - Provider: Aspen Cannon LPN)2111 (Given - Provider: Ernesto Wilkinson RN) 0840 (Given - Provider: Rowena Acosta RN)1301 (Given - Provider: Rowena Acosta RN)210 (Given - Provider: Ernesto Wilkinson RN) 0930 (Given - Provider: Rowena Acosta RN)1400 (Canceled Entry - Provider: Automatic Discharge Provider - Comment: Automatically canceled at discontinue of medication order) levothyroxine (Synthroid, Levoxyl) tablet 75 mcg 75 mcg, Oral, Daily before breakfast, First dose on Thu06/24/24 at 0600, Tube feeding (TF) interaction, obtain physician order to manage, recommend holding TF for 30 minutes before and after dose., Indications: Hypothyroidism 0639 (Given - Provider: Lucy Duncan RN) 0523 (Given - Provider: Ernesto Wilkinson RN) 0522 (Given - Provider: Ernesto Wilkinson RN) Lidocaine 4 % patch 1 patch 1 patch, TransDERmal, Administer over 12 Hours, Daily, First dose on Thu06/24/24 at 1445, Apply patch to back. Patch may remain in place for up to 12 hours in any 24 hour period. 0829 (Medication Applied - Provider: Aspen Cannon LPN)2028 (Medication Removed - Provider: Ernesto Wilkinson RN) 0839 (Medication Applied - Provider: Rowena Acosta RN)2038 (Medication Removed - Provider: Ernesto Wilkinson RN) 0931 (Medication Applied - Provider: Rowena Acosta RN)1232 (Due: Medication Removed - Provider: Automatic Discharge Provider - Comment: Time automatically adjusted from order being discontinued) mometasone-formoterol (Dulera 200) 200-5 MCG/ACT inhaler 2 puff 2 puff, Inhalation, 2 times daily, First dose on Thu06/23/24 at 2000, Rinse mouth with water after use to reduce aftertaste and incidence of candidiasis. Do not swallow. 0831 (Given - Provider: Aspen Cannon LPN)2114 (Given - Provider: Ernesto Wilkinson RN) 09 (Given - Provider: Rowena Acosta RN)2117 (Given - Provider: Ernesto Wilkinson RN) 0931 (Given - Provider: Rowena Acosta RN) mupirocin (Bactroban) 2 % ointment Topical, 2 times daily, First dose on Thu06/24/24 at 0900 0830 (Given - Provider: Aspen Cannon LPN)2114 (Given - Provider: Ernesto Wilkinson RN) 1047 (Given - Provider: Rowena Acosta RN)2120 (Given - Provider: Ernesto Wilkinson RN) 0932 (Given - Provider: Rowena Acosta RN) nystatin (Mycostatin) cream Topical, 2 times daily, First dose on Thu06/29/24 at 2230, Apply to affected area 2311 (Given - Provider: Ernesto Wilkinson RN) 0931 (Given - Provider: Rowena Acosta RN) pantoprazole (ProtoNix) EC tablet 40 mg 40 mg, Oral, Daily, First dose on Thu06/24/24 at 0900, Do not crush, chew, or split. 0829 (Given - Provider: Aspen Cannon LPN) 0840 (Given - Provider: Rowena Acosta RN) 0930 (Given - Provider: Rowena Acosta RN) sulfamethoxazole-trimetho prim (Bactrim DS) 800-160 MG per tablet 2 tablet 2 tablet, Oral, Every 12 hours, First dose on Thu06/29/24 at 1700, For 5 days, Suspected Indication (Select all that apply): Skin and Soft Tissue Infection 1725 (Given - Provider: Rowena Acosta RN) 0522 (Given - Provider: Ernesto Wilkinson RN) tamsulosin (Flomax) 24 hr capsule 0.4 mg 0.4 mg, Oral, Daily, First dose on Thu06/24/24 at 0900, Do not crush, chew, or split. 0829 (Given - Provider: Aspen Cannon LPN) 0840 (Given - Provider: Rowena Acosta RN) 0931 (Given - Provider: Rowena Acosta RN) PRN Medication Order 06/28/2024 06/29/2024 06/30/2024 acetaminophen (Tylenol) suppository 650 mg(Linked Group 1) 650 mg, Rectal, Every 6 hours PRN, fever, For temp greater than 100.4 F (38 C), Starting on [place] 06/23/24 at 1911, Administer if oral route cannot be used. Maximum dose of acetaminophen is 4000 mg from all sources in 24 hours. acetaminophen (Tylenol) tablet 650 mg(Linked Group 1) 650 mg, Oral, Every 6 hours PRN, mild pain (1-3), fever, For temp greater than 100.4 F (38 C), Starting on [place] 06/23/24 at 1911, Maximum dose of acetaminophen is 4000 mg from all sources in 24 hours. albuterol 108 (90 Base) MCG/ACT inhaler 2 puff 2 puff, Inhalation, Every 6 hours PRN, wheezing, shortness of breath, Starting on Thu06/23/24 at 1914 ALPRAZolam (Xanax) tablet 1 mg 1 mg, Oral, Nightly PRN, anxiety, Starting on Thu06/23/24 at 2236 211 (Given - Provider: Ernesto Wilkinson RN) 2111 (Given - Provider: Ernesto Wilkinson RN) HYDROmorphone (Dilaudid) injection 0.5 mg 0.5 mg, IntraVENous, Every 4 hours PRN, severe pain (7-10), Starting on Thu06/28/24 at 1120, If oral and injectable narcotics ordered, use oral first and only use injectable if oral is ineffective or cannot take oral. Do Not give oral and injectable within 1 hour of each other unless specifically ordered. 1132 (Given - Provider: Tessy Alvarez RN)1520 (Given - Provider: Tessy Alvarez RN)1941 (Given - Provider: Ernesto Wilkinson RN)2345 (Given - Provider: Ernesto Wilkinson RN) 0320 (Given - Provider: Ernesto Wilkinson RN)1257 (Given - Provider: Rowena Acosta RN)1725 (Given - Provider: Rowena Acosta RN)2117 (Given - Provider: Ernesto Wilkinson RN) 0114 (Given - Provider: Ernesto Wilkinson RN)0524 (Given - Provider: Ernesto Wilkinson RN) lidocaine (LMX) 4 % cream Topical, 3 times daily PRN, mild pain (1-3), Starting on [place] 06/23/24 at 2038 0830 (Given - Provider: Aspen Cannon LPN) lidocaine (Xylocaine) 2 % mouth solution 15 mL 15 mL, Mouth/Throat, Every 3 hours PRN, mild pain (1-3), Starting on [place] 06/30/24 at 0542, Max 8 doses per 24-hour period naloxone (Narcan) injection 0.4 mg 0.4 mg, IntraVENous, Every 5 min PRN, opioid reversal, respiratory depression, Starting on [place] 06/23/24 at 1916, +++ For RR <10, pinpoint pupils, over sedation for opioid reversal - MUST notify clinical transformation specialist provider immediately after first dose, may give IM or SQ if no IV access +++ ondansetron (Zofran) injection 4 mg(Linked Group 2) 4 mg, IntraVENous, Every 6 hours PRN, nausea, vomiting, Starting on [place] 06/23/24 at 1911, 1st Line. Give IV if patient is unable to take orally. If inadequate response within 60 minutes, proceed to next-line agent or contact provider if no further options ordered. ondansetron ODT (Zofran-ODT) disintegrating tablet 4 mg(Linked Group 2) 4 mg, Oral, Every 8 hours PRN, nausea, vomiting, Starting on [place] 06/23/24 at 1911, 1st Line. If inadequate response within 60 minutes, proceed to next-line agent or contact provider if no further options ordered. Patient should allow tablet to dissolve on tongue. Do not remove from blister pack until just before administering. oxyCODONE (Roxicodone) immediate release tablet 5 mg 5 mg, Oral, Every 4 hours PRN, severe pain (7-10), Starting on [place] 06/26/24 at 0950 0640 (Given - Provider: Lucy Duncan RN)1053 (Given - Provider: Aspen Cannon LPN)1830 (Given - Provider: Aspen Cannon LPN) 0840 (Given - Provider: Rowena Acosta RN)1401 (Given - Provider: Rowena Acosta RN) 0931 (Given - Provider: Rowena Acosta RN) polyethylene glycol (PEG) 3350 (Miralax) packet 17 g 17 g, Oral, Daily PRN, constipation, Starting on [place] 06/23/24 at 1911, 1st line for treatment of constipation - give scheduled if no bowel movement in past 24 hours. Linked Groups Order Group 1: acetaminophen (Tylenol) tablet 650 mgJump to med 650 mg, Oral, Every 6 hours PRN, mild pain (1-3), fever, For temp greater than 100.4 F (38 C), Starting on [place] 06/23/24 at 1911, Maximum dose of acetaminophen is 4000 mg from all sources in 24 hours. Or acetaminophen (Tylenol) suppository 650 mgJump to med 650 mg, Rectal, Every 6 hours PRN, fever, For temp greater than 100.4 F (38 C), Starting on [place] 06/23/24 at 1911, Administer if oral route cannot be used. Maximum dose of acetaminophen is 4000 mg from all sources in 24 hours. Group 2: ondansetron ODT (Zofran-ODT) disintegrating tablet 4 mgJump to med 4 mg, Oral, Every 8 hours PRN, nausea, vomiting, Starting on [place] 06/23/24 at 1911, 1st Line. If inadequate response within 60 minutes, proceed to next-line agent or contact provider if no further options ordered. Patient should allow tablet to dissolve on tongue. Do not remove from blister pack until just before administering. Or ondansetron (Zofran) injection 4 mgJump to med 4 mg, IntraVENous, Every 6 hours PRN, nausea, vomiting, Starting on [place] 06/23/24 at 1911, 1st Line. Give IV if patient is unable to take orally. If inadequate response within 60 minutes, proceed to next-line agent or contact provider if no further options ordered. Scheduled Medication Order 09/25/2024 09/26/2024 09/27/2024 oxyCODONE-acetaminophen (Percocet) 5-325 MG per tablet 1 tablet (COMPLETED) 1 tablet, Oral, Once, On Thu09/27/24 at 1325, For 1 dose, Maximum dose of acetaminophen is 4000 mg from all sources in 24 hours. 1328 (Given - Provid er: Lindsey Silveira RN) Scheduled Medication Order 02/13/2025 02/14/2025 02/15/2025 diazePAM (Valium) tablet 5 mg (COMPLETED) 5 mg, Oral, Once, On Thu02/15/25 at 1315, For 1 dose 1341 (Given - Provid er: Char Jones, CIRO) morphine injection 8 mg (COMPLETED) 8 mg, SubCUTAneous, Once, On Thu02/15/25 at 1110, For 1 dose, If oral and IV narcotics ordered, use oral first and only use IV if oral is ineffective or cannot take oral. Do Not give oral and IV within 1 hour of each other unless specifically ordered. 1134 (Given - Provid er: Char Jones RN - Comment: Right Upper arm (back), 1ml in each site) ondansetron ODT (Zofran-ODT) disintegrating tablet 4 mg (COMPLETED) 4 mg, Oral, Once, On Thu02/15/25 at 1110, For 1 dose 1134 (Given - Provid er: Char Jones, CIRO) Care Teams (unrecognized sec tion and content) Ball Points Inspector Relationship Specialty Start Date End Date Jenni Moser APRN - FERRYBOAT OPERATOR HELPER [address] [place] [address] PCP - General 03/06/21 Ball Points Inspector Relationship Specialty Start Date End Date Jenni Moser APRN - FERRYBOAT OPERATOR HELPER [address] [place] [address] PCP - General 03/06/21 Ball Points Inspector Relationship Specialty Start Date End Date Jenni Moser APRN - FERRYBOAT OPERATOR HELPER [address] [place] [address] PCP - General 03/06/21 Ball Points Inspector Relationship Specialty Start Date End Date Jenni Moser APRN - FERRYBOAT OPERATOR HELPER [address] [place] [address] PCP - General 03/06/21 Ball Points Inspector Relationship Specialty Start Date End Date Jenni Moser, PLANT OPERATOR CONTROL ROOM OPERATOR - FERRYBOAT OPERATOR HELPER [address] [place] [address] PCP - General 03/06/21 Ball Points Inspector Relationship Specialty Start Date End Date Jenni Moser, PLANT OPERATOR CONTROL ROOM OPERATOR - FERRYBOAT OPERATOR HELPER [address] [place] [address] PCP - General 03/06/21 Ball Points Inspector Relationship Specialty Start Date End Date Jenni Moser, PLANT OPERATOR CONTROL ROOM OPERATOR - [facility] [address] [place] [address] PCP - General 03/06/21 Ball Points Inspector Relationship Specialty Start Date End Date Jenni Moser, PLANT OPERATOR CONTROL ROOM OPERATOR - FERRYBOAT OPERATOR HELPER [address] [place] [address] PCP - General 03/06/21 Ball Points Inspector Relationship Specialty Start Date End Date Jenni Moser, PLANT OPERATOR CONTROL ROOM OPERATOR - FERRYBOAT OPERATOR HELPER [address] [place] [address] PCP - General 03/06/21 Ball Points Inspector Relationship Specialty Start Date End Date Jenni Moser, PLANT OPERATOR CONTROL ROOM OPERATOR - FERRYBOAT OPERATOR HELPER [address] [place] [address] PCP - General 11/06/21 Ball Points Inspector Relationship Specialty Start Date End Date Jenni Moser, PLANT OPERATOR CONTROL ROOM OPERATOR - FERRYBOAT OPERATOR HELPER [address] [place] [address] PCP - General 11/06/21 Ball Points Inspector Relationship Specialty Start Date End Date Jenni Moser, PLANT OPERATOR CONTROL ROOM OPERATOR - FERRYBOAT OPERATOR HELPER [address] [place] [address] PCP - General 11/06/21 Ball Points Inspector Relationship Specialty Start Date End Date Ehsan, Jenni, PLANT OPERATOR CONTROL ROOM OPERATOR - FERRYBOAT OPERATOR HELPER [address] [place] [address] PCP - General 11/06/21 Ball Points Inspector Relationship Specialty Start Date End Date Jenni Moser, PLANT OPERATOR CONTROL ROOM OPERATOR - FERRYBOAT OPERATOR HELPER [address] [place] [address] PCP - General 11/06/21 Ball Points Inspector Relationship Specialty Start Date End Date Juan Carlos Moseridi, PLANT OPERATOR CONTROL ROOM OPERATOR [address] [place] [address] PCP - General 11/06/21 Louisa Cabello DO [address] [place] [address] Surgeon General Surgery 03/07/22 Ball Points Inspector Relationship Specialty Start Date End Date Ehsan Jenni, PLANT OPERATOR CONTROL ROOM OPERATOR [address] [place] [address] PCP - General 11/06/21 Louisa Cabello DO [address] [facility] [address] [place] [address] Surgeon General Surgery 03/07/22 Ball Points Inspector Relationship Specialty Start Date End Date Ehsan Jenni, PLANT OPERATOR CONTROL ROOM OPERATOR [address] [place] [address] PCP - General 11/06/21 Louisa Cabello DO [address] [facility] [address] [place] [address] Surgeon General Surgery 03/07/22 Ball Points Inspector Relationship Specialty Start Date End Date Ehsan Jenni, PLANT OPERATOR CONTROL ROOM OPERATOR [address] [place] [address] PCP - General 11/06/21 Louisa Cabello DO [address] [facility] [address] [place], [place] [id number] Surgeon General Surgery 03/07/22 Ball Points Inspector Relationship Specialty Start Date End Date Jenni Moser, PLANT OPERATOR CONTROL ROOM OPERATOR [address] [place] [address] PCP - General 11/06/21 Louisa Cabello DO [address] [place] [address] [address] [place], [place] [id number] Surgeon General Surgery 03/07/22 Ball Points Inspector Relationship Specialty Start Date End Date Jenni Moser, PLANT OPERATOR CONTROL ROOM OPERATOR [address] [place] [address] [address] [place] [address] PCP - General 11/06/21 Louisa Cabello DO [address] [place] [address] [address] [place], [place] [id number] Surgeon General Surgery 03/07/22 Ball Points Inspector Relationship Specialty Start Date End Date Jenni Moser, PLANT OPERATOR CONTROL ROOM OPERATOR [address] [place] [address] Rd [address] [place] [address] PCP - General 11/06/21 Louisa Cabello DO [address] [facility] [address] [place], [place] [id number] Surgeon General Surgery 03/07/22 Ball Points Inspector Relationship Specialty Start Date End Date Jenni Moser, PLANT OPERATOR CONTROL ROOM OPERATOR [address] [place] [address] PCP - General 7/27/22 Louisa Cabello DO [address] [place], [place] [id number] Surgeon General Surgery 03/07/22 Ball Points Inspector Relationship Specialty Start Date End Date Jenni Moser, PLANT OPERATOR CONTROL ROOM OPERATOR [address] [place] [address] PCP - General 11/06/21 Louisa Cabello DO [address] [place], [place] [id number] Surgeon General Surgery 03/07/22 Ball Points Inspector Relationship Specialty Start Date End Date Jenni Moser, PLANT OPERATOR CONTROL ROOM OPERATOR [address] [place] [address] PCP - General 11/06/21 Louisa Cabello DO [address] [facility] [address] [place] [address] Surgeon General Surgery 03/07/22 Ball Points Inspector Relationship Specialty Start Date End Date Wiliam Fernandez MD [facility] [address] [place] [address] PCP - General Family Medicine 02/27/23 Louisa Cabello DO [address] [place] [address] Surgeon General Surgery 03/07/22 Ball Points Inspector Relationship Specialty Start Date End Date iWliam Fernandez MD [facility] [place] [phone] PCP - General Family Medicine 02/27/23 Louisa Cabello DO [address] [place], [place] [id number] Surgeon General Surgery 03/07/22 Ball Points Inspector Relationship Specialty Start Date End Date Jenni Moser APRN [address] [place], [place] [address] PCP - General 11/06/21 02/26/23 Wiliam Fernandez MD [address] [place] [address] PCP - General Family Medicine 02/27/23 Louisa Cabello DO [address] [place], [place] [id number] Surgeon General Surgery 03/07/22 Ball Points Inspector Relationship Specialty Start Date End Date Jenni Moser APRN [address] [place], [place] [id number] PCP - General 11/06/21 02/26/23 Wiliam Fernandez MD [facility] [place] [address] PCP - General Family Medicine 02/27/23 Louisa Cabello DO [address] [place] [address] Surgeon General Surgery 03/07/22 Ball Points Inspector Relationship Specialty Start Date End Date Jenni Moser APRN [address] [place] [address] PCP - General 11/06/21 02/26/23 Wiliam Fernandez MD [facility] Amande[address] jeremi [address] [place] [address] PCP - General Family Medicine 02/27/23 Louisa Cabello DO [address] [place], [place] [id number] Surgeon General Surgery 03/07/22 Ball Points Inspector Relationship Specialty Start Date End Date Wiliam Fernandez MD [facility] [address]ande[address] [place] [address] PCP - General Family Medicine 02/27/23 Louisa Cabello DO [address] [place], [place] [id number] Surgeon General Surgery 03/07/22 Ball Points Inspector Relationship Specialty Start Date End Date Wiliam Fernandez MD [facility] [place] [address] PCP - General Family Medicine 02/27/23 Louisa Cabello DO [address] [place], [place] [id number] Surgeon General Surgery 03/07/22 Ball Points Inspector Relationship Specialty Start Date End Date Wiliam Fernandez MD [facility] [place] jeremi [facility] [place] [address] PCP - General Family Medicine 02/27/23 Louisa Cabello DO [address] [place] [address] Surgeon General Surgery 03/07/22 Ball Points Inspector Relationship Specialty Start Date End Date Wiliam Fernandez MD [facility] [place] [address] PCP - General Family Medicine 02/27/23 Louisa Cabello DO [address] [place], [place] [id number] Surgeon General Surgery 03/07/22 Ball Points Inspector Relationship Specialty Start Date End Date Wiliam Fernandez MD [address] [place] [phone] PCP - General Family Medicine 02/27/23 Louisa Cabello DO [address] [facility] [address] [place], [place] [id number] Surgeon General Surgery 03/07/22 Ball Points Inspector Relationship Specialty Start Date End Date Wiliam Fernandez MD [address] [place] [phone] PCP - General Family Medicine 02/27/23 Louisa Cabello DO [address] [facility] [address] [place], [place] [id number] Surgeon General Surgery 03/07/22 Ball Points Inspector Relationship Specialty Start Date End Date Wiliam Fernandez MD [address] [place] [phone] PCP - General Family Medicine 02/27/23 Louisa Cabello DO [address] [place] [address] Surgeon General Surgery 03/07/22 Ball Points Inspector Relationship Specialty Start Date End Date Wiliam Fernandez MD [address] [place] [phone] PCP - General Family Medicine 02/27/23 Louisa Cabello DO [address] [place] [address] [address] [place] [address] Surgeon General Surgery 03/07/22 Ball Points Inspector Relationship Specialty Start Date End Date Wiliam Fernandez MD [address] [place] [phone] PCP - General Family Medicine 02/27/23 Louisa Cabello DO [address] [place] [address] [address] [place] [address] Surgeon General Surgery 03/07/22 Ball Points Inspector Relationship Specialty Start Date End Date Wiliam Fernandez MD [address] [place] [phone] PCP - General Family Medicine 02/27/23 Louisa Cabello DO [address] [place] [address] [address] [place] [address] Surgeon General Surgery 03/07/22 Cristo Coyne MD [address] [place] [address] [address] [place], [place] [id number] Surgeon Urology 08/03/23 Ball Points Inspector Relationship Specialty Start Date End Date Wiliam Fernandez MD [address] [place] [phone] PCP - General Family Medicine 02/27/23 Louisa Cabello DO [address] [facility] [address] [place], [place] [id number] Surgeon General Surgery 03/07/22 Cristo Coyne MD [address] [place] [address] Surgeon Urology 08/03/23 Ball Points Inspector Relationship Specialty Start Date End Date Wiliam Fernandez MD [address] [place] [address] PCP - General Family Medicine 02/27/23 Louisa Cabello DO [address] [facility] [address] [place] [address] Surgeon General Surgery 03/07/22 Cristo Coyne MD [address] [facility] 3 [place] [address] Surgeon Urology 08/03/23 Ball Points Inspector Relationship Specialty Start Date End Date Wiliam Fernandez MD [facility] [place] [address] PCP - General Family Medicine 02/27/23 Louisa Cabello DO [address] [facility] [address] [place] [address] Surgeon General Surgery 03/07/22 Cristo Coyne MD [address] [place] [address] Surgeon Urology 08/03/23 Ball Points Inspector Relationship Specialty Start Date End Date Wiliam Fernandez MD [address] [place] [address] PCP - General Family Medicine 02/27/23 Louisa Cabello DO [address] [facility] [address] [place] [address] Surgeon General Surgery 03/07/22 Cristo Coyne MD 201 [facility] 3 [place] [address] Surgeon Urology 08/03/23 Ball Points Inspector Relationship Specialty Start Date End Date Wiliam Fernandez MD [address] [place] [phone] PCP - General Family Medicine 02/27/23 Louisa Cabello DO [address] [facility] [address] [place] [address] Surgeon General Surgery 03/07/22 Cristo Coyne MD [address] [address] Surgeon Urology 08/03/23 Ball Points Inspector Relationship Specialty Start Date End Date Wiliam Fernandez MD [address] [place], [place] [address] [facility] [place] [address] PCP - General Family Medicine 02/27/23 Louisa Cabello DO [address] [facility] [address] [place] [address] Surgeon General Surgery 03/07/22 Cristo Coyne MD 201 [facility] 3 [place] [address] Surgeon Urology 08/03/23 Ball Points Inspector Relationship Specialty Start Date End Date Wiliam Fernandez MD [address] [place] [address] PCP - General Family Medicine 02/27/23 Louisa Cabello DO [address] [facility] [address] [place] [address] Surgeon General Surgery 03/07/22 Cristo Coyne MD [address] [facility] [address] [place] [address] Surgeon Urology 08/03/23 Ball Points Inspector Relationship Specialty Start Date End Date Wiliam Fernandez MD [address] [place] [address] PCP - General Family Medicine 02/27/23 Louisa Cabello DO [address] [facility] [address] [place] [address] Surgeon General Surgery 03/07/22 Cristo Coyne MD [address] [address] Surgeon Urology 08/03/23 Ball Points Inspector Relationship Specialty Start Date End Date Wiliam Fernandez MD [address] [place] [phone] PCP - General Family Medicine 02/27/23 Louisa Cabello DO [address] [facility] [address] [place] [address] Surgeon General Surgery 03/07/22 Cristo Coyne MD [address] [facility] [address] [place] [address] Surgeon Urology 08/03/23 Ball Points Inspector Relationship Specialty Start Date End Date Wiliam Fernandez MD [address] [place] [phone] PCP - General Family Medicine 02/27/23 Louisa Cabello DO [address] [facility] [address] [place] [address] Surgeon General Surgery 03/07/22 Cristo Coyne MD [address] [place] [address] Surgeon Urology 08/03/23 Ball Points Inspector Relationship Specialty Start Date End Date Wiliam Fernandez MD [facility] [place] [address] PCP - General Family Medicine 02/27/23 Louisa Cabello DO [address] [facility] [address] [place] [address] Surgeon General Surgery 03/07/22 Cristo Coyne MD 201 [facility] 3 [place] [address] Surgeon Urology 08/03/23 Ball Points Inspector Relationship Specialty Start Date End Date Wiliam Fernandez MD [facility] [place] [phone] PCP - General Family Medicine 02/27/23 Louisa Cabello DO [address] [facility] [address] [place] [address] Surgeon General Surgery 03/07/22 Cristo Coyne MD 201 [facility] 3 [place] [address] Surgeon Urology 08/03/23 Ball Points Inspector Relationship Specialty Start Date End Date Wiliam Fernandez MD [address] [place] [phone] PCP - General Family Medicine 02/27/23 Louisa Cabello DO [address] [facility] [address] [place] [address] Surgeon General Surgery 03/07/22 Cristo Coyne MD 201 [facility] [address] [place] [address] Surgeon Urology 08/03/23 Ball Points Inspector Relationship Specialty Start Date End Date Wiliam Fernandez MD [address] [place] [address] PCP - General Family Medicine 02/27/23 Louisa Cabello DO [address] [facility] [address] [place] [address] Surgeon General Surgery 03/07/22 Cristo Coyne MD 201 [facility] [address] [place] [address] Surgeon Urology 08/03/23 Ball Points Inspector Relationship Specialty Start Date End Date Wiliam Fernandez MD [address] [place] [address] PCP - General Family Medicine 02/27/23 Louisa Cabello DO [address] [facility] [address] [place] [address] Surgeon General Surgery 03/07/22 Cristo Coyne MD 201 [facility] [address] [place] [address] Surgeon Urology 08/03/23 Ball Points Inspector Relationship Specialty Start Date End Date Wiliam Fernandez MD [address] [place] [address] PCP - General Family Medicine 02/27/23 Louisa Cabello DO [address] [facility] [address] [place] [address] Surgeon General Surgery 03/07/22 Cristo Coyne MD [address] [facility] 3 [place] [address] Surgeon Urology 08/03/23 Ball Points Inspector Relationship Specialty Start Date End Date Wiliam Fernandez MD [facility] [place] [address] PCP - General Family Medicine 02/27/23 Louisa Cabello DO [address] [facility] [address] [place] [address] Surgeon General Surgery 03/07/22 Cristo Coyne MD [address] [facility] 3 [place] [address] Surgeon Urology 08/03/23 Ball Points Inspector Relationship Specialty Start Date End Date Wiliam Fernandez MD [address] [place] [address] PCP - General Family Medicine 02/27/23 Louisa Cabello DO 95 [facility] [address] [place] [address] Surgeon General Surgery 03/07/22 Cristo Coyne MD [address] [place] [address] Surgeon Urology 08/03/23 Ball Points Inspector Relationship Specialty Start Date End Date Wiliam Fernandez MD [address] [place] [address] PCP - General Family Medicine 02/27/23 Louisa Cabello DO [address] [place] [address] Surgeon General Surgery 03/07/22 Cristo Coyne MD [address] [facility] 3 [place] [address] Surgeon Urology 08/03/23 Ball Points Inspector Relationship Specialty Start Date End Date Wiliam Fernandez MD [address] [place] [phone] PCP - General Family Medicine 02/27/23 Louisa Cabello DO [address] [place] [address] Surgeon General Surgery 03/07/22 Cristo Coyne MD 201 [facility] 3 [place] [address] Surgeon Urology 08/03/23 Ball Points Inspector Relationship Specialty Start Date End Date Wiliam Fernandez MD [facility] [place] [address] PCP - General Family Medicine 02/27/23 Louisa Cabello DO [address] [place] [address] Surgeon General Surgery 03/07/22 Cristo Coyne MD 201 [facility] 3 [place] [address] Surgeon Urology 08/03/23 Ball Points Inspector Relationship Specialty Start Date End Date Wiliam Fernandez MD [facility] [place] [phone] PCP - General Family Medicine 02/27/23 Louisa Cabello DO 95 [facility] [address] [place] [address] Surgeon General Surgery 03/07/22 Cristo Coyne MD [address] [address] Surgeon Urology 08/03/23 Ball Points Inspector Relationship Specialty Start Date End Date Wiliam Fernandez MD [address] [place], [place] [address]jeremi [place] [address] PCP - General Family Medicine 02/27/23 Louisa Cabello DO 95 [facility] [address] [place] [address] Surgeon General Surgery 03/07/22 Cristo Coyne MD [address] [address] Surgeon Urology 08/03/23 Ball Points Inspector Relationship Specialty Start Date End Date Wiliam Fernandez MD [address] [place] [address] PCP - General Family Medicine 02/27/23 Louisa Cabello DO 95 [facility] [address] [place], [place] [address] Surgeon General Surgery 03/07/22 Cristo Coyne MD 201 [facility] [address] [place] [address] Surgeon Urology 08/03/23 Ball Points Inspector Relationship Specialty Start Date End Date Wiliam Fernandez MD [address] [place] [address] PCP - General Family Medicine 02/27/23 Louisa Cabello DO 95 [facility] [address] [place] [address] Surgeon General Surgery 03/07/22 Cristo Coyne MD 201 [facility] [address] [place] [address] Surgeon Urology 08/03/23 Ball Points Inspector Relationship Specialty Start Date End Date Jenni Moser APRN [address] [place] [address] PCP - General 11/06/21 Louisa Cabello DO [address] [place] [address] [address] [place] [address] Surgeon General Surgery 03/07/22 Ball Points Inspector Relationship Specialty Start Date End Date Jenni Moser, GREG [address] [place] [address] PCP - General 11/06/21 Louisa Cabello DO 95 [facility] [address] [place] [address] Surgeon General Surgery 03/07/22 Ball Points Inspector Relationship Specialty Start Date End Date Ehsan Jenni, PLANT OPERATOR CONTROL ROOM OPERATOR 195 [facility] [address] [place] [address] PCP - General 11/06/21 Louisa Cabello DO [address] [place] [address] Surgeon General Surgery 03/07/22 Ball Points Inspector Relationship Specialty Start Date End Date Wiliam Fernandez MD [address] [place] [phone] PCP - General Family Medicine 02/27/23 Louisa Cabello DO 95 [facility] [address] [place], [place] [address] Surgeon General Surgery 03/07/22 Cristo Coyne MD 201 [facility] [address] [place] [address] Surgeon Urology 08/03/23 Ball Points Inspector Relationship Specialty Start Date End Date Wiliam Fernandez MD [address] [place] [phone] PCP - General Family Medicine 02/27/23 Louisa Cabello DO 95 [facility] [address] [place] [address] Surgeon General Surgery 03/07/22 Cristo Coyne MD 201 [facility] [address] [place] [address] Surgeon Urology 08/03/23 Ball Points Inspector Relationship Specialty Start Date End Date Wiliam Fernandez MD [facility] [place] [address] PCP - General Family Medicine 02/27/23 Louisa Cabello DO 95 [facility] [address] [place] [address] Surgeon General Surgery 03/07/22 Cristo Coyne MD 201 [facility] 3 [place] [address] Surgeon Urology 08/03/23 Christine Bernstein, CIRO Nurse Navigator Orthopedic Surgery 05/18/24 Ball Points Inspector Relationship Specialty Start Date End Date Wiliam Fernandez MD [facility] [place] [address] PCP - General Family Medicine 02/27/23 Louisa Cabello DO 95 [facility] [address] [place] [address] Surgeon General Surgery 03/07/22 Cristo Coyne MD [address] [address] Surgeon Urology 08/03/23 Christine Bernstein, RN Nurse Navigator Orthopedic Surgery 05/18/24 Ball Points Inspector Relationship Specialty Start Date End Date Wiliam Fernandez MD [address] [place] [address] PCP - General Family Medicine 02/27/23 Louisa Cabello DO 95 [facility] [address] [place] [address] Surgeon General Surgery 03/07/22 Cristo Coyne MD 201 [facility] 3 [place] [address] Surgeon Urology 08/03/23 Christine Bernstein, CIRO Nurse Navigator Orthopedic Surgery 05/18/24 Ball Points Inspector Relationship Specialty Start Date End Date Wiliam Fernandez MD [address] [place] [address] PCP - General Family Medicine 02/27/23 Louisa Cabello DO 95 [facility] [address] [place] [address] Surgeon General Surgery 03/07/22 Cristo Coyne MD 201 [facility] 3 [place] [address] Surgeon Urology 08/03/23 Christine Bernstein RN Nurse Navigator Orthopedic Surgery 05/18/24 Ball Points Inspector Relationship Specialty Start Date End Date Wiliam Fernandez MD [address] [place] [phone] PCP - General Family Medicine 02/27/23 Louisa Cabello DO [address] [place] [address] [address] [place] [address] Surgeon General Surgery 03/07/22 Cristo Coyne MD 201 [facility] 3 [place] [address] Surgeon Urology 08/03/23 Christine Bernstein RN Nurse Navigator Orthopedic Surgery 05/18/24 Antony Anderson MD 1 [facility] [address] [place] [address] Orthopedic Surgery 05/27/24 08/24/24 Ball Points Inspector Relationship Specialty Start Date End Date Wiliam Fernandez MD [address] [place] [phone] PCP - General Family Medicine 02/27/23 Louisa Cabello DO [address] [place] [address] [address] [place] [address] Surgeon General Surgery 03/07/22 Cristo Coyne MD 201 [facility] 3 [place] [address] Surgeon Urology 08/03/23 Christine Bernstein RN Nurse Navigator Orthopedic Surgery 05/18/24 Antony Anderson MD 1 [facility] [address] [place] [address] Orthopedic Surgery 05/27/24 08/24/24 Ball Points Inspector Relationship Specialty Start Date End Date Wiliam Fernandez MD [address] [place] [phone] PCP - General Family Medicine 02/27/23 Louisa Cabello DO 95 [facility] [address] [place] [address] Surgeon General Surgery 03/07/22 Cristo Coyne MD 201 [facility] 3 [place] [address] Surgeon Urology 08/03/23 Christine Bernstein RN Nurse Navigator Orthopedic Surgery 05/18/24 Antony Anderson MD 1 [facility] [address] [place] [address] Orthopedic Surgery 05/27/24 08/24/24 Ball Points Inspector Relationship Specialty Start Date End Date Wiliam Fernandez MD [address] [place] [phone] PCP - General Family Medicine 02/27/23 Louisa Cabello DO [address] [place] [address] [address] [place] [address] Surgeon General Surgery 03/07/22 Cristo Coyne MD 201 [facility] 3 [place] [address] Surgeon Urology 08/03/23 Christine Bernstein RN Nurse Navigator Orthopedic Surgery 05/18/24 Antony Anderson MD [address] [place] [address] [address] [place] [address] Orthopedic Surgery 05/27/24 08/24/24 Ball Points Inspector Relationship Specialty Start Date End Date Wiliam Fernandez MD [address] [place] [phone] PCP - General Family Medicine 02/27/23 Louisa Cabello DO [address] [place] [address] [address] [place] [address] Surgeon General Surgery 03/07/22 Cristo Coyne MD 201 [facility] 3 [place] [address] Surgeon Urology 08/03/23 Christine Bernstein RN Nurse Navigator Orthopedic Surgery 05/18/24 Antony Anderson MD 1 [facility] [address] [place] [address] Orthopedic Surgery 05/27/24 08/24/24 Ball Points Inspector Relationship Specialty Start Date End Date Wiliam Fernandez MD [address] [place] [phone] PCP - General Family Medicine 02/27/23 Louisa Cabello DO 95 [facility] [address] [place], [place] [address] Surgeon General Surgery 03/07/22 Cristo Coyne MD 201 [facility] [address] [place] [address] Surgeon Urology 08/03/23 Christine Bernstein RN Nurse Navigator Orthopedic Surgery 05/18/24 Antony Anderson MD 1 [facility] [address] [place] [address] Orthopedic Surgery 05/27/24 08/24/24 Ball Points Inspector Relationship Specialty Start Date End Date Wiliam Fernandez MD [address] [place] [phone] PCP - General Family Medicine 02/27/23 Louisa Cabello DO 95 [facility] [address] [place], [place] [address] Surgeon General Surgery 03/07/22 Cristo Coyne MD [address] [place] [address] Surgeon Urology 08/03/23 Christine Bernstein RN Nurse Navigator Orthopedic Surgery 05/18/24 Antony Anderson MD 1 [facility] [address] [place], [place] [address] Orthopedic Surgery 05/27/24 08/24/24 Ball Points Inspector Relationship Specialty Start Date End Date Wiliam Fernandez MD [address] [place] [phone] PCP - General Family Medicine 02/27/23 Louisa Cabello DO 95 [facility] [address] [place], [place] [address] Surgeon General Surgery 03/07/22 Cristo Coyne MD 201 [facility] [address] [place] [address] Surgeon Urology 08/03/23 Christine Bernstein, CIRO Nurse Navigator Orthopedic Surgery 05/18/24 Antony Anderson MD 1 [facility] [address] [place] [address] Orthopedic Surgery 05/27/24 08/24/24 Ball Points Inspector Relationship Specialty Start Date End Date Wiliam Fernandez MD [address] [place] [phone] PCP - General Family Medicine 02/27/23 Louisa Cabello DO 95 [facility] [address] [place], [place] [address] Surgeon General Surgery 03/07/22 Cristo Coyne MD 201 [facility] [address] [place] [address] Surgeon Urology 08/03/23 Christine Bernstein, CIRO Nurse Navigator Orthopedic Surgery 05/18/24 Antony Anderson MD 1 [facility] [address] [place] [address] Orthopedic Surgery 05/27/24 08/24/24 Ball Points Inspector Relationship Specialty Start Date End Date Wiliam Fernandez MD [address] [place] [phone] PCP - General Family Medicine 02/27/23 Louisa Cabello DO 95 [facility] [address] [place], [place] [address] Surgeon General Surgery 03/07/22 Cristo Coyne MD 201 [facility] 3 [place] [address] Surgeon Urology 08/03/23 Christine Bernstein, CIRO Nurse Navigator Orthopedic Surgery 05/18/24 Antony Anderson MD 1 [facility] [address] [place] [address] Orthopedic Surgery 05/27/24 08/24/24 Ball Points Inspector Relationship Specialty Start Date End Date Wiliam Fernandez MD [facility] [place] [address] PCP - General Family Medicine 02/27/23 Louisa Cabello DO 95 [facility] [address] [place] [address] Surgeon General Surgery 03/07/22 Cristo Coyne MD 201 [facility] 3 [place] [address] Surgeon Urology 08/03/23 Christine Bernstein, CIRO Nurse Navigator Orthopedic Surgery 05/18/24 Antony Anderson MD 1 [facility] [address] [place] [address] Orthopedic Surgery 05/27/24 08/24/24 Ball Points Inspector Relationship Specialty Start Date End Date Wiliam Fernandez MD [address] [place] [phone] PCP - General Family Medicine 02/27/23 Louisa Cabello DO [address] [place] [address] [address] [place], [place] [address] Surgeon General Surgery 03/07/22 Cristo Coyne MD 201 [facility] [address] [place] [address] Surgeon Urology 08/03/23 Christine Bernstein RN Nurse Navigator Orthopedic Surgery 05/18/24 Antony Anderson MD 1 [facility] [address] [place] [address] Orthopedic Surgery 05/27/24 08/24/24 Ball Points Inspector Relationship Specialty Start Date End Date Wiliam Fernandez MD [facility] [place] [address] PCP - General Family Medicine 02/27/23 Louisa Cabello DO [address] [place] [address] [address] [place], [place] [address] Surgeon General Surgery 03/07/22 Cristo Coyne MD 201 [facility] [address] [place] [address] Surgeon Urology 08/03/23 Christine Bernstein, RN Nurse Navigator Orthopedic Surgery 05/18/24 Antony Anderson MD 1 [facility] [address] [place] [address] Orthopedic Surgery 05/27/24 08/24/24 Ball Points Inspector Relationship Specialty Start Date End Date Wiliam Fernandez MD [address] [place] [phone] PCP - General Family Medicine 02/27/23 Louisa Cabello DO [address] [place] [address] [address] [place] [address] Surgeon General Surgery 03/07/22 Cristo Coyne MD 201 [facility] [address] [place] [address] Surgeon Urology 08/03/23 hCristine Bernstein RN Nurse Navigator Orthopedic Surgery 05/18/24 Antony Anderson MD 1 [facility] [address] [place] [address] Orthopedic Surgery 05/27/24 08/24/24 Ball Points Inspector Relationship Specialty Start Date End Date Wiliam Fernandez MD [address] [place] [phone] PCP - General Family Medicine 02/27/23 Louisa Cabello DO [address] [place] [address] [address] [place], [place] [id number] Surgeon General Surgery 03/07/22 Cristo Coyne MD [address] [place] [address] Surgeon Urology 08/03/23 Christine Bernstein RN Nurse Navigator Orthopedic Surgery 05/18/24 Antony Anderson MD 1 [facility] [address] [place] [address] Orthopedic Surgery 05/27/24 08/24/24 Ball Points Inspector Relationship Specialty Start Date End Date Wiliam Fernandez MD [facility] [place] [phone] PCP - General Family Medicine 02/27/23 Louisa Cabello DO [address] [place] [address] [address] [place] [address] Surgeon General Surgery 03/07/22 Cristo Coyne MD [address] [place] [address] Surgeon Urology 08/03/23 Ball Points Inspector Relationship Specialty Start Date End Date Wiliam Fernandez MD [address] [place] [phone] PCP - General Family Medicine 02/27/23 Louisa Cabello DO 95 [facility] [address] [place] [address] Surgeon General Surgery 03/07/22 Cristo Coyne MD [address] [place] [address] Surgeon Urology 08/03/23 Christine Bernstein, CIRO Nurse Navigator Orthopedic Surgery 05/18/24 Antony Anderson MD 1 [facility] [address] [place] [address] Orthopedic Surgery 05/27/24 08/24/24 Ball Points Inspector Relationship Specialty Start Date End Date Wiliam Fernandez MD [address] [place] [phone] PCP - General Family Medicine 02/27/23 Louisa Cabello DO 95 [facility] [address] [place] [address] Surgeon General Surgery 03/07/22 Cristo Coyne MD 201 [facility] [address] [place] [address] Surgeon Urology 08/03/23 Ball Points Inspector Relationship Specialty Start Date End Date Wiliam Fernandez MD [address] [place] [phone] PCP - General Family Medicine 02/27/23 Louisa Cabello DO 95 [facility] [address] [place] [address] Surgeon General Surgery 03/07/22 Cristo Coyne MD 201 [facility] [address] [place] [address] Surgeon Urology 08/03/23 Ball Points Inspector Relationship Specialty Start Date End Date Wiliam Fernandez MD [address] [place] [address] PCP - General Family Medicine 02/27/23 Louisa Cabello DO 95 [facility] [address] [place] [address] Surgeon General Surgery 03/07/22 Cristo Coyne MD 201 [facility] 3 [place] [address] Surgeon Urology 08/03/23 Christine Bernstein, CIRO Nurse Navigator Orthopedic Surgery 05/18/24 Antony Anderson MD 1 [facility] [address] [place] [address] Orthopedic Surgery 05/27/24 08/24/24 Ball Points Inspector Relationship Specialty Start Date End Date Wiliam Fernandez MD [address] [place] [address] Marjan Rodrí[place] [phone] PCP - General Family Medicine 02/27/23 Louisa Cabello DO 95 [facility] [address] [place] [address] Surgeon General Surgery 03/07/22 Cristo Coyne MD [address] [address] Surgeon Urology 08/03/23 Christine Bernstein, CIRO Nurse Navigator Orthopedic Surgery 05/18/24 Antony Anderson MD 1 [facility] [address] [place] [address] Orthopedic Surgery 05/27/24 08/24/24 Ball Points Inspector Relationship Specialty Start Date End Date Wiliam Fernandez MD [facility] [place] [address] PCP - General Family Medicine 02/27/23 Louisa Cabello DO 95 [facility] [address] [place], [place] [id number] Surgeon General Surgery 03/07/22 Cristo Coyne MD [address] [place] [address] Surgeon Urology 08/03/23 Ball Points Inspector Relationship Specialty Start Date End Date Wiliam Fernandez MD [address] [place] [phone] PCP - General Family Medicine 02/27/23 Louisa Cabello DO 95 [facility] [address] [place] [address] Surgeon General Surgery 03/07/22 Cristo Coyne MD 201 [facility] 3 [place] [address] Surgeon Urology 08/03/23 Ball Points Inspector Relationship Specialty Start Date End Date Wiliam Fernandez MD [address] [place] [phone] PCP - General Family Medicine 02/27/23 Louisa Cabello DO 95 [facility] [address] [place] [address] Surgeon General Surgery 03/07/22 Cristo Coyne MD [address] [place] [address] Surgeon Urology 08/03/23 Ball Points Inspector Relationship Specialty Start Date End Date Wiliam Fernandez MD [address] [place] [phone] PCP - General Family Medicine 02/27/23 Louisa Cabello DO 95 [facility] [address] [place] [address] Surgeon General Surgery 03/07/22 Cristo Coyne MD [address] [address] Surgeon Urology 08/03/23 Ball Points Inspector Relationship Specialty Start Date End Date Wiliam Fernandez MD [address] [place] [phone] PCP - General Family Medicine 02/27/23 Louisa Cabello DO 95 [facility] [address] [place] [address] Surgeon General Surgery 03/07/22 Cristo Coyne MD [address] [address] Surgeon Urology 08/03/23 FOR RECORDS PERTAINING TO PATIENTS WHO ARE OR HAVE BEEN ENROLLED IN A CHEMICAL DEPENDENCY/SUBSTANCEABUSE PROGRAM, SOME INFORMATION MAY BE OMITTED. This clinical summary was aggregated from multiple sources. Caution should be exercised in using it in the provision of clinical care. This summary normalizes information from multiple sources, and as a consequence, information in this document may materially change the coding, format and clinical context of patient data. In addition, data may be omitted in some cases. CLINICAL DECISIONS SHOULD BE BASED ON THE PRIMARY CLINICAL RECORDS. [facility] [employer] [facility]. provides no warranty or guarantee of the accuracy or completeness of information in this document.
[2025-04-06 23:21] VITALS: BP 110/70; PULSE 70; RESP 18; O2SAT 99
--- NOTE | 2025-04-06 23:24 | EX.ED.DYSGE1 ---
HPI History of Present Illness Chief Complaint: Nausea/Vomiting Narrative Narrative: Patient was seen and examined after presenting to ED for nausea and vomiting states that he was just in detox was given a few days worth of Suboxone states he went to the initial appointment post discharge from the detox facility but that was just for an initial intake he does not see the physician that actually prescribes his Suboxone until April 27 and since then he has been out of it states that he is taking the 8 mg dose and has been having nausea and vomiting and diarrhea. Also reports that there is a wound on his abdomen that is from when he leaned over radiator and cause a slight little burn. [facility] Medical History Pancytopenia Opiate dependence Opiate withdrawal GERD (gastroesophageal reflux disease) Dementia Anxiety Depression Substance abuse Hypothyroidism Kidney disease Non-smoker COPD (chronic obstructive pulmonary disease) Asthma Atrial fibrillation Parkinson's disease TIA (transient ischemic attack) Home Medications ?Medication ?Instructions ?Recorded ?Last Taken ?Type acetaminophen 500 mg tablet 500 mg PO Q6H PRN fever or pain 03/21/25 03/19/25 History (Tylenol Extra Strength) albuterol sulfate 90 mcg/actuation 2 puff inhalation Q6H PRN PRN 03/21/25 03/18/25 History aerosol inhaler shortness of breath or wheezing aspirin 81 mg tablet,delayed 81 mg PO BID 03/21/25 03/20/25 History release (Adult Aspirin Regimen) atorvastatin 80 mg tablet (Lipitor) 80 mg PO DAILY 03/21/25 03/20/25 History bacitracin 500 unit/gram topical 1 applic topical DAILY 03/21/25 03/20/25 History packet budesonide-formoterol HFA 160 1 inh inhalation DAILY 03/21/25 03/18/25 History mcg-4.5 mcg/actuation aerosol inhaler (Symbicort) bupropion HCl 150 mg 24 hr tablet, 150 mg PO DAILY 03/21/25 03/20/25 History extended release (Wellbutrin XL) buspirone 10 mg tablet 10 mg PO BID 03/21/25 03/20/25 History clotrimazole 1 % topical cream 1 applic topical BID PRN antifungal 03/21/25 03/20/25 History cyclobenzaprine 10 mg tablet 10 mg PO QHS PRN muscle spasm 03/21/25 03/20/25 History finasteride 5 mg tablet 5 mg PO DAILY 03/21/25 03/20/25 History fluticasone propionate 115 2 puff inhalation BID 03/21/25 03/20/25 History mcg-salmeterol 21 mcg/actuation HFA inhaler furosemide 40 mg tablet (Lasix) 40 mg PO TID 03/21/25 03/20/25 History hydroxyzine pamoate 50 mg capsule 50 mg PO Q6H PRN itching 03/21/25 03/20/25 History ipratropium 0.5 mg-albuterol 3 mg 3 ml inhalation Q6H PRN PRN 03/21/25 03/18/25 History (2.5 mg base)/3 mL nebulization shortness of breath or wheezing soln levothyroxine 75 mcg tablet 75 mcg PO DAILY 03/21/25 03/20/25 History (Euthyrox) lidocaine 4 % topical cream 1 applic topical Q8H PRN pain 03/21/25 03/18/25 History lidocaine 5 % topical patch 1 patch topical Q24H PRN pain 03/21/25 03/20/25 History multivit,calcium,min-folic acid 1 tab PO DAILY 03/21/25 03/20/25 History 240 mcg-D3 25 mcg-lycop 300 mcg tablet (One A Day Men Complete) nystatin 100,000 unit/gram topical 1 applic topical BID 03/21/25 03/20/25 History powder ondansetron HCl 4 mg tablet 4 mg PO Q8H PRN nausea and vomiting 03/21/25 03/20/25 History pantoprazole 40 mg tablet,delayed 40 mg PO DAILY 03/21/25 Unknown History release (Protonix) paroxetine HCl 20 mg tablet (Paxil) 20 mg PO DAILY 03/21/25 03/20/25 History sennosides 8.6 mg-docusate sodium 1 - 2 tab PO QHS PRN constipation 03/21/25 03/20/25 History 50 mg tablet (Senna with Docusate Sodium) sertraline 100 mg tablet (Zoloft) 100 mg PO DAILY 03/21/25 03/20/25 History sildenafil 100 mg tablet 100 mg PO DAILY PRN sexual activity 03/21/25 03/14/25 History tamsulosin 0.4 mg capsule 0.4 mg PO DAILY 03/21/25 03/20/25 History white petrolatum 41 % topical 1 applic topical Q6H PRN dry skin 03/21/25 03/18/25 History ointment (Aquaphor Baby Healing) alprazolam 1 mg tablet 1 mg PO QHS #30 tabs 03/24/25 Unknown Rx celecoxib 200 mg capsule (Celebrex) 200 mg PO BID PRN pain #60 caps 03/24/25 Unknown Rx gabapentin 600 mg tablet 600 mg PO TID #90 tabs 03/24/25 Unknown Rx buprenorphine 8 mg-naloxone 2 mg 1 film buccal DAILY 7 days #7 ea 04/06/25 Unknown Rx sublingual film (Suboxone) Allergy/AdvReac Type Severity Reaction Status Date / Time Iodinated Contrast Media AdvReac Other Verified 04/06/25 22:23 Surgical History History of appendectomy Social History housing: house Smoking Status: Never smoker ROS ROS ED ROS Narrative Pertinent Positives: Nausea vomiting diarrhea out of Suboxone just completed detox Pertinent Negatives: Fevers chills chest pain pressure redness The remainder of review of systems negative unless otherwise stated in the HPI above. Systems reviewed including constitutional, psychiatric, cardiovascular, respiratory, integument, HENT, gastrointestinal. EXAM Physical Exam Narrative Exam Narrative: Patient is afebrile hemodynamically stable does not appear toxic or in distress however appears somewhat uncomfortable not diaphoretic normal heart and lung sounds. Abdomen is soft nontender nondistended no evidence of any erythema or crepitus no hemorrhagic bullae there is a small localized burn just left of center of the abdomen otherwise appears well-healing. Const Vital Signs: 04/06/25 22:21 Temperature 99.1 F Temperature Source Oral Pulse Rate 69 Respiratory Rate 16 Blood Pressure 104/77 Blood Pressure Mean 86 Pulse Ox 94 Oxygen Delivery Method Room Air MDM MDM MDM Narrative Medical decision making narrative: Nursing notes, triage notes, available previous documentation, and vital signs were reviewed. Any discrepancies noted were addressed. Differential Diagnoses: Low suspicion for intra-abdominal pathology or acute surgical pathology seems to be more consistent with withdrawal from Suboxone the wound on the abdomen appears well-healing from a burn not cellulitic not a necrotizing process Interventions: Suboxone Previous Documentation Reviewed: None available or applicable at this time. ED Course: Patient presenting with symptoms as stated above seems to be pretty consistent with withdrawal at this point no labs or imaging needed we will provide a dose of buprenorphine because we do not have Suboxone I will write a prescription for a few days worth I informed the patient that I cannot write a significant amount to get him to the 15th. 04/07/2025 at 0008: patient informed me appointment is actually on 04/21. hes doing better. return precautions and follow up recommendations provided. PAtient stable for discharge home This note was made utilizing voice recognition software. All attempts were made to correct spelling or other errors prior to note completion. However, due to the fast-paced nature of emergency medicine, some errors may still be present. Discharge Plan Triage Chief Complaint: Nausea/Vomiting ED Provider: Mahesh Cervantes Dx/Rx/DC Orders Clinical Impression: Nausea & vomiting, Diarrhea, Withdrawal symptoms, drug or narcotic Instructions: Addiction Disease Prescriptions: New buprenorphine-naloxone [Suboxone] 8-2 mg film 1 film buccal DAILY 7 Days Qty: 7 0RF No Action Aquaphor Baby Healing 41 % ointment 1 applic topical Q6H PRN (Reason: dry skin) lidocaine 4 % cream 1 applic topical Q8H PRN (Reason: pain) bacitracin 500 unit/gram packet 1 applic topical DAILY clotrimazole 1 % cream 1 applic topical BID PRN (Reason: antifungal) tamsulosin 0.4 mg capsule 0.4 mg PO DAILY atorvastatin [Lipitor] 80 mg tablet 80 mg PO DAILY pantoprazole [Protonix] 40 mg tablet,delayed release (DR/EC) 40 mg PO DAILY levothyroxine [Euthyrox] 75 mcg tablet 75 mcg PO DAILY finasteride 5 mg tablet 5 mg PO DAILY sennosides-docusate sodium [Senna with Docusate Sodium] 8.6-50 mg tablet 1 - 2 tab PO QHS PRN (Reason: constipation) paroxetine HCl [Paxil] 20 mg tablet 20 mg PO DAILY acetaminophen [Tylenol Extra Strength] 500 mg tablet 500 mg PO Q6H PRN (Reason: fever or pain) ondansetron HCl 4 mg tablet 4 mg PO Q8H PRN (Reason: nausea and vomiting) nystatin 100,000 unit/gram powder 1 applic topical BID sildenafil 100 mg tablet 100 mg PO DAILY PRN (Reason: sexual activity) Rx Instructions: administer 30 minutes to 4 hours before activity aspirin [Adult Aspirin Regimen] 81 mg tablet,delayed release (DR/EC) 81 mg PO BID bupropion HCl [Wellbutrin XL] 150 mg tablet extended release 24 hr 150 mg PO DAILY cyclobenzaprine 10 mg tablet 10 mg PO QHS PRN (Reason: muscle spasm) hydroxyzine pamoate 50 mg capsule 50 mg PO Q6H PRN (Reason: itching) buspirone 10 mg tablet 10 mg PO BID sertraline [Zoloft] 100 mg tablet 100 mg PO DAILY furosemide [Lasix] 40 mg tablet 40 mg PO TID One A Day Men Complete 240-25-300 mcg tablet 1 tab PO DAILY lidocaine 5 % adhesive patch,medicated 1 patch topical Q24H PRN (Reason: pain) albuterol sulfate 90 mcg/actuation HFA aerosol inhaler 2 puff INHALATION Q6H PRN PRN (Reason: shortness of breath or wheezing) budesonide-formoterol [Symbicort] 160-4.5 mcg/actuation HFA aerosol inhaler 1 inh inhalation DAILY ipratropium-albuterol 0.5 mg-3 mg(2.5 mg base)/3 mL solution for nebulization 3 ml inhalation Q6H PRN PRN (Reason: shortness of breath or wheezing) fluticasone propion-salmeterol 115-21 mcg/actuation HFA aerosol inhaler 2 puff INHALATION BID alprazolam 1 mg tablet 1 mg PO QHS Qty: 30 0RF gabapentin 600 mg tablet 600 mg PO TID Qty: 90 0RF celecoxib [Celebrex] 200 mg capsule 200 mg PO BID PRN (Reason: pain) Qty: 60 0RF Primary Care Provider: MICHELA DAILEY Referrals: MICHELA DAILEY [Other] Activity Restrictions/Additional Instructions: Try to see if you can get a call cancellation list appointment unfortunately I cannot prescribe you enough medications to get you through to April 27. Otherwise follow-up with your primary care doctor. Print Language: Lithuanian Disposition Disposition: Home, Self Care
--- NOTE | 2025-04-06 23:24 | EDS_ITS ---
HPI History of Present Illness Chief Complaint: Nausea/Vomiting Narrative Narrative: Patient was seen and examined after presenting to ED for nausea and vomiting states that he was just in detox was given a few days worth of Suboxone states he went to the initial appointment post discharge from the detox facility but that was just for an initial intake he does not see the physician that actually prescribes his Suboxone until April 27 and since then he has been out of it states that he is taking the 8 mg dose and has been having nausea and vomiting and diarrhea. Also reports that there is a wound on his abdomen that is from when he leaned over radiator and cause a slight little burn. [facility] Medical History Pancytopenia Opiate dependence Opiate withdrawal GERD (gastroesophageal reflux disease) Dementia Anxiety Depression Substance abuse Hypothyroidism Kidney disease Non-smoker COPD (chronic obstructive pulmonary disease) Asthma Atrial fibrillation Parkinson's disease TIA (transient ischemic attack) Home Medications ?Medication ?Instructions ?Recorded ?Last Taken ?Type acetaminophen 500 mg tablet 500 mg PO Q6H PRN fever or pain 03/21/25 03/19/25 History (Tylenol Extra Strength) albuterol sulfate 90 mcg/actuation 2 puff inhalation Q 6H PRN PRN 03/21/25 03/18/25 History aerosol inhaler shortness of breath or wheez ing aspirin 81 mg tablet,delayed 81 mg PO BID 03/21/2512/05 History release (Adult Aspirin Regimen) atorvastatin 80 mg tablet (Lipitor) 80 mg PO DAILY 01/0503/20/25 History bacitracin 500 unit/gram topical 1 applic topical INDY Y 03/21/25 03/20/25 History packet budesonide-formoterol HFA 160 1 inh inhalation DAILY 1 05/22/24 03/18/25 History mcg-4.5 mcg/actuation aerosol inhaler (Symbicort) bupropion HCl 150 mg 24 hr tablet, 150 mg PO DAILY 01/0503/20/25 History extended release (Wellbutrin XL) buspirone 10 mg tablet 10 mg PO BID 03/21/25 History clotrimazole 1 % topical cream 1 applic topical BID IN N antifungal 03/21/25 03/20/25 History cyclobenzaprine 10 mg tablet 10 mg PO QHS PRN muscle s pasm 03/21/25 03/20/25 History finasteride 5 mg tablet 5 mg PO DAILY 03/21/2503/20 History fluticasone propionate 115 2 puff inhalation BID 03/2103/20/25 History mcg-salmeterol 21 mcg/actuation HFA inhaler furosemide 40 mg tablet (Lasix) 40 mg PO TID 03/21/25 03/20/25 History hydroxyzine pamoate 50 mg capsule 50 mg PO Q6H PRN itc david 03/21/25 03/20/25 History ipratropium 0.5 mg-albuterol 3 mg 3 ml inhalation Q6H PRN PRN 03/21/25 03/18/25 History (2.5 mg base)/3 mL nebulization shortness of breath or wheezing
[2025-04-07 00:14] VITALS: BP 110/70; PULSE 70; RESP 18; TEMP 36.8; O2SAT 99
== END 2025-04-07 00:14 | disposition home or self-care (01) ==
PROVIDERS: Emergency Provider Specialist/Technologist Athletic Trainer; Visit Provider Specialist/Technologist Athletic Trainer
DX: F11.23 Opioid dependence with withdrawal (principal); G20.A1 Parkinson's disease without dyskinesia, without mention of fluctuations; F02.84 Dementia in other diseases classified elsewhere, unspecified severity, with anxiety; F02.83 Dementia in other diseases classified elsewhere, unspecified severity, with mood disturbance; R11.2 Nausea with vomiting, unspecified; R19.7 Diarrhea, unspecified; Z79.899 Other long term (current) drug therapy
CPT/HCPCS: 99284